=== PATIENT | male | born 1945 | race Caucasian/White ===

== ENCOUNTER 2024-01-11 10:11 | Observation (INO) | payer MEDICARE, OTHER, SELFPAY ==
[2024-01-11 10:12] VITALS: BP 164/64; PULSE 58; RESP 20; TEMP 36.5; O2SAT 97; BMI 40.6
--- NOTE | 2024-01-11 10:41 | XR_ITS ---
PROCEDURE INFORMATION: Exam: XR Right Knee Exam date and time: 01/11/2024 10:45 AM Age: 78 years old Clinical indication: Injury or trauma; Fall; Blunt trauma; Knee; Right TECHNIQUE: Imaging protocol: Radiologic exam of the right knee. Views: 3 views. COMPARISON: CR XR KNEE RT 3V 01/11/2024 10:45 AM FINDINGS: Bones/joints: Tricompartmental degenerative changes, most severe in the medial compartment. Soft tissues: Normal. IMPRESSION: Tricompartmental degenerative changes, most severe in the medial compartment.
--- NOTE | 2024-01-11 10:41 | XR_ITS ---
PROCEDURE INFORMATION: Exam: XR Right Ankle Exam date and time: 01/11/2024 10:45 AM Age: 78 years old Clinical indication: Injury or trauma; Fall; Blunt trauma; Ankle; Right TECHNIQUE: Imaging protocol: Radiologic exam of the right ankle. Views: 3 or more views. COMPARISON: CR XR KNEE RT 3V 01/11/2024 10:45 AM FINDINGS: Bones/joints: Oblique nondisplaced fracture of the lateral malleolus. Soft tissues: Normal. IMPRESSION: Oblique nondisplaced fracture of the lateral malleolus.
--- NOTE | 2024-01-11 11:20 | XR_ITS ---
PROCEDURE INFORMATION: Exam: XR Right Foot Exam date and time: 01/11/2024 11:28 AM Age: 78 years old Clinical indication: Injury or trauma; Fall; Blunt trauma; Foot; Right; Additional info: Foot injury TECHNIQUE: Imaging protocol: Radiologic exam of the right foot. Views: 3 or more views. COMPARISON: CR XR ANKLE RT MIN 3V 01/11/2024 10:45 AM FINDINGS: Bones/joints: Oblique nondisplaced fracture of the lateral malleolus. Soft tissues: Normal. IMPRESSION: Oblique nondisplaced fracture of the lateral malleolus.
--- NOTE | 2024-01-11 11:28 | ED_ITS ---
Discharge Plan Disposition Chief Complaint: Fall Referrals Follow up/Referrals: Provider,Referral, [Primary Care Provider] - See instructions Clinical Impressions Clinical Impression: Fracture of right fibula, Osteoarthritis of right knee, Fall, Debilitated patient, Inability to walk Print Language Print Language: Danish Discharge ED Provider: Elisa Valadez General Adult HPI General Chief complaint: Fall Stated complaint: AO- Fall, Pain and swelling R knee and ankle Time Seen by Provider: 01/11/24 11:28 Mode of Arrival: Wheelchair Source of Information: Patient and Spouse Limitations: No Limitations Description of Symptoms (Recalled from ER Triage Doc. by RN): pt got tripped up at home yesterday and twisted his right knee and ankle up behind him. pt denies loc, head, neck, or back pain. pt has ble edema +2 that is a chronic ongoing issue History of Present Illness HPI narrative: Patient is a 78-year-old with history of MS who with chronic debility who can barely walk at baseline typically using a walker or cane presents after a fall. Had his left knee replaced many years ago's had chronic right knee pain actually has a follow-up appointment with an orthopedic surgeon on Friday but fell today twisting his right knee and ankle having significant right ankle pain and inability to walk. No injuries elsewhere Related Data Allergies Allergy/AdvReac Type Severity Reaction Status Date / Time No Known Allergies Allergy Unverified 03/11/17 14:32 [facility] Disclaimer: The information contained in this section may have been updated after the patient was seen, as this information can be updated by other users. Social History Smoking Status: Never smoker alcohol intake: never current occupational status: other Travel in the last 8 weeks: None ROS Obtained: Yes All systems reviewed & no additional complaints except as documented Physical Exam General General appearance: alert and in no apparent distress Respiratory Respiratory exam: Present normal lung sounds bilaterally Cardiovascular Cardiovascular exam: Present regular rate Extremities Exam Extremities exam: Present other (Significant pain and swelling over the distal tib-fib location and ankle particular on the right side there is some ecchymosis and soft tissue discoloration and tenderness to the dorsal aspect of the midfoot neurovascular intact) Neurological Exam Neurological exam: Present alert and oriented X3 Medical Decision Making Medical Records Screening: Per USPSTF and CDC recommendations, given the prevalence of disease in our region, it is our hospital?s policy to screen for HIV and viral Hepatitis for all patients aged 18 and over and those with ongoing risk factors. Vick Inquiry Pt receiving controlled substance: No Vital Signs: 01/11/24 10:12 Temperature 97.7 F Temperature Source Oral Pulse Rate [Right Radial] 58 L Respiratory Rate 20 Blood Pressure [Right Arm] 164/64 H Blood Pressure Mean [Right Arm] 97 02 Sat by Pulse Oximetry 97 Oxygen Delivery Method Room Air Orders (Tests/Meds): ORDERS Category Date Time Status Ankle XR -Right minimum 3 Views [XR ankle RT min 3V] Exams 01/11/24 10:41 Completed Stat Foot XR right minimum 3 views [XR foot RT min 3V] Stat Exams 01/11/24 11:20 Completed XR knee RT 3V Stat Exams 01/11/24 10:41 Completed Medical Decision Narrative: Patient with above history and physical will get x-rays to rule out fracture dislocation etc. X-rays were performed which I personally interpreted which show severe degenerative changes in the knee but no acute fractures or dislocations however in the ankle there is a oblique fracture of the distal aspect of the right fibula and a nonweightbearing component no fractures on the tibia itself or in the medial malleolus. This is typically nonweightbearing bone but given patient's chronic debilitation this is only worsened things I doubt he will be able to bear weight and care for himself at home and his family agrees with this his and children at the bedside. Will attempt to place a walking boot on him and have him bear weight but he likely will need to be admitted for PT OT and possibly rehab placement. Reassessment patient unable to walk without multiple people around him. He certainly will be able to be cared for at home by himself with his . Therefore he will need to come in for PT OT evaluation and likely rehab placement. Family is aware that a team of professionals including those therapist as well as case management will be involved tomorrow. I spoke with Chas with hospital medicine who agreed to admit this patient for further management. Critical Care Critical Care Time Critical Care Time: No
--- NOTE | 2024-01-11 12:45 | PC.NURSE ---
CAREER DEVELOPMENT COORDINATOR/TEACHER NOTIFIED OF ADMISSION
--- NOTE | 2024-01-11 12:57 | PC.NURSE ---
house advised that this admission will be going to [address] on [address] floor.
[2024-01-11 13:00] VITALS: BP 137/58; PULSE 61; RESP 20; TEMP 36.8; O2SAT 96
--- NOTE | 2024-01-11 13:00 | PC.NURSE ---
called report to jeannette landa
[2024-01-11 13:22] VITALS: BMI 36.8
[2024-01-11 13:31] VITALS: BP 135/67; PULSE 60; RESP 19; TEMP 36.5; O2SAT 97
--- NOTE | 2024-01-11 13:58 | EXP.HP ---
History of Present Illness *History of present illness: Med Chung is a 78-year-old male with a medical history significant for multiple sclerosis, type 2 diabetes who presents after falling at home and found to have fractured his right malleolus. Chronic debility who can barely walk at baseline typically using a walker or cane presents after a fall. Had his left knee replaced many years ago's had chronic right knee pain actually has a follow-up appointment with an orthopedic surgeon on Friday but fell today twisting his right knee and ankle having significant right ankle pain and inability to walk. No injuries elsewhere. Ankle x-ray significant for oblique nondisplaced fracture of the lateral malleolus. No fractures in the foot, knee. Efforts were made to ambulate patient in the ED with his walker, the patient had significant difficulty requiring multiple people assisting him. He lives with at home who would be unable to assist with his acute on chronic debility. Case was discussed with ED provider and decision was made to admit patient for acute on chronic debility with right malleolus fracture. [facility] Disclaimer: The information contained in this section may have been updated after the patient was seen, as this information can be updated by other users. Medical History (Updated 01/11/24 @ 14:11 by Tiarra Harris RN) Mass Enlarged prostate Macular degeneration Prostate CA GERD (gastroesophageal reflux disease) Diabetes Hypertension Hyperlipidemia Multiple sclerosis Chronic pain FH: total knee replacement Falls COPD (chronic obstructive pulmonary disease) Surgical History (Updated 01/11/24 @ 14:10 by Tiarra Harris RN) History of prostate surgery History of appendectomy Family History (Updated 01/11/24 @ 14:09 by Tiarra Harris RN) Other Family history of COPD (chronic obstructive pulmonary disease) Family history of diabetes mellitus type II Family history of hyperlipidemia Family history of hypertension Prostate cancer Social History (Updated 01/11/24 @ 14:11 by Tiarra Harris RN) Smoking Status: Never smoker alcohol intake: never current occupational status: other Travel in the last 8 weeks: None Other Medical History Have you received the Flu Vaccine for this season: Yes Have you received the Pneumonia Vaccine: Yes Meds Home Medications and Allergies Home Medications ?Medication ?Instructions ?Recorded ?Confirmed ?Type alfuzosin 10 mg tablet,extended 10 mg PO DAILY 01/11/24 01/11/24 History release 24 hr aspirin 81 mg tablet 81 mg PO DAILY 01/11/24 01/11/24 History atorvastatin 20 mg tablet 20 mg PO DAILY 01/11/24 01/11/24 History bisoprolol fumarate 5 mg tablet 5 mg PO DAILY 01/11/24 01/11/24 History cholecalciferol (vitamin D3) 50 2,000 unit PO DAILY 01/11/24 01/11/24 History mcg (2,000 unit) capsule (Vitamin D3) famotidine 20 mg tablet 20 mg PO DAILY 01/11/24 01/11/24 History famotidine 20 mg tablet 20 mg PO DAILY 01/11/24 01/11/24 History metformin 500 mg 24 hr 500 mg PO DAILY 01/11/24 01/11/24 History tablet,extended release (gastric retention) silodosin 8 mg capsule 8 mg PO DAILY 01/11/24 01/11/24 History solifenacin 10 mg tablet 10 mg PO DAILY 01/11/24 01/11/24 History vitamin B12 0.5 mg-folic acid 1 mg 1 tab PO DAILY 01/11/24 01/11/24 History tablet New Prescriptions to Start Prescriptions: Allergies Allergy/AdvReac Type Severity Reaction Status Date / Time No Known Allergies Allergy Unverified 03/11/17 14:32 Exam Data for Last 24 hours Vital signs and Labs for Last 24 Hours: Temp Pulse Resp BP Pulse Ox O2 Del Method 97.7 F 60 19 135/67 97 Room Air 01/11/24 13:31 01/11/24 13:31 01/11/24 13:31 01/11/24 13:31 01/11/24 13:31 01/11/24 13:31 I & O for Last 24 hours: Intake & Output 01/08/24 01/09/24 01/10/24 01/11/24 23:59 23:59 23:59 23:59 Weight 113.115 kg Constitutional Constitutional: no acute distress *Routine HEENT Exam Head: Present normocephalic Eye: Present EOMI and PERRL ENT: Present mucous membranes moist *Routine Neck Exam Neck: Present supple; Absent lymphadenopathy *Routine Respiratory Exam Respiratory: Present CTA bilaterally *Routine Cardiovascular Exam Cardiovascular: Present RRR *Routine Abdominal Exam Abdominal: Present soft and normoactive bowel sounds; Absent tenderness *Routine Rectal Exam Rectal:: deferred *Routine Genitalia Exam Genitalia:: deferred *Routine Extremities Exam Extremities: Absent cyanosis, clubbing or edema Comments: Bruising around right malleolus with tenderness. Bilateral lower extremity pitting edema 1+. *Routine Skin Exam Skin: Present warm; Absent rash *Routine Neurological Exam Neurological: Present alert and oriented X3 Assessment and Plan *Assessment and plan (1) Inability to walk: Status: Acute Category: Medical Code(s): R26.2 - Difficulty in walking, not elsewhere classified (2) Debilitated patient: Status: Acute Category: Medical Code(s): R53.81 - Other malaise (3) Fall: Status: Acute Category: Medical Code(s): W19.XXXA - Unspecified fall, initial encounter (4) Osteoarthritis of right knee: Status: Acute Category: Medical Code(s): M17.11 - Unilateral primary osteoarthritis, right knee (5) Fracture of right fibula: Status: Acute Category: Medical Code(s): S82.401A - Unspecified fracture of shaft of right fibula, initial encounter for closed fracture Plan Med Chung is a 78-year-old male with a medical history significant for multiple sclerosis, type 2 diabetes who presents after falling at home and found to have fractured his right malleolus. Chronic debility who can barely walk at baseline typically using a walker or cane presents after a fall. Had his left knee replaced many years ago's had chronic right knee pain actually has a follow-up appointment with an orthopedic surgeon on Friday but fell today twisting his right knee and ankle having significant right ankle pain and inability to walk. No injuries elsewhere. Ankle x-ray significant for oblique nondisplaced fracture of the lateral malleolus. No fractures in the foot, knee. Efforts were made to ambulate patient in the ED with his walker, the patient had significant difficulty requiring multiple people assisting him. He lives with at home who would be unable to assist with his acute on chronic debility. Case was discussed with ED provider and decision was made to admit patient for acute on chronic debility with right malleolus fracture. #Right nondisplaced lateral malleolus fracture #Acute on chronic debility ? Patient at baseline requires walker for significant bilateral knee arthritis s/p left total knee replacement. ? would be unable to take care of him with his knee debility at home. He is unable to use his walker without multiple people assisting. ? PT/OT consulted, pending recommendations. Patient prefers home health, prefers SNF. ? Pain control with Tylenol, Reagan as needed. ? No signs of compartment syndrome. #Bilateral lower extremity pitting edema ? No shortness of breath, orthopnea, PND, cardiac history. ? Likely secondary to venous insufficiency. ? Will defer to PCP for further evaluation management. #Multiple sclerosis #Suspected neurogenic bladder ? Follows with neurology and insensate. Receives maintenance IV infusion therapy every 6 months. ? Stable, not in exacerbation. ? Patient states he continues to have bedwetting and urinary leakage spite of being treated with solifenacin. ? Will trial oxybutynin. #Type 2 diabetes ? Follow-up morning A1c. ? LDSSI, ACHS glucose checks. ? Continue home metformin. Full code Lovenox
[2024-01-11 14:05] LABS: Basophils % 0.5 % (0.1-2.0); Eosinophils # 0.3 K/mm3 (0.0-0.4); Eosinophils % 3.7 % (0.1-12.0); Hematocrit 35.7 % (42.0-52.0); Hemoglobin 12.2 g/dL (14.1-18.0); Lymphocytes # 2.5 K/mm3 (0.7-4.5); Lymphocytes % 35.4 % (10-50); Mean Corpuscular HGB Conc 34.2 g/dL (31.8-35.4); Mean Corpuscular Hemoglobin 29.9 pg (27.0-31.2); Mean Corpuscular Volume 87.3 fl (80-94); Mean Platelet Volume 8.6 fl (7.4-10.4); Monocytes # 0.5 K/mm3 (0.1-1.0); Monocytes % 6.5 % (1.7-9.3); Neutrophils # 3.8 K/mm3 (1.8-7.8); Neutrophils % 53.9 % (37.0-80.0); Platelet Count 179 K/mm3 (142-424); Red Blood Count 4.09 M/mm3 (4.60-6.20); Red Cell Distribution Width 15.5 % (11.5-17.5); White Blood Count 7.1 K/mm3 (4.8-10.8)
[2024-01-11 14:13] LABS: Albumin Level 3.3 g/dl (3.5-5.0); Chloride 104 mmol/L (98-107)
[2024-01-11 14:14] LABS: Potassium 4.1 mmoL/L (3.5-5.1); Sodium 133 mmol/L (136-145)
[2024-01-11 14:16] LABS: Blood Urea Nitrogen 17 mg/dl (9-20); Creatinine Clearance Estimated 99 mL/min (50-200); Estimated Glomerular Filt Rate 94 ml/min (>60); GFR (African American) 113 ML/MIN (>60)
[2024-01-11 14:17] LABS: Alanine Aminotransferase 34 U/L (12-78); Albumin/Globulin Ratio 1.3 (1.1-1.8); Alkaline Phosphatase 102 U/L (38-126); Anion Gap 9.1 mEq/L (5-15); Aspartate Amino Transferase 33 U/L (17-59); Calcium 8.9 mg/dl (8.4-10.2); Carbon Dioxide 24 mmol/L (22.0-30.0); Globulin 2.6 g/dL (1.3-3.2); Glucose 115 mg/dl (74-100); Total Protein,Serum 5.9 g/dl (6.3-8.2)
[2024-01-11 16:00] VITALS: BP 172/73; PULSE 65; RESP 18; TEMP 36.7; O2SAT 97
[2024-01-11 16:30] LABS: POC Glucose,Bedside 125 (70-110)
[2024-01-11] MEDS: HYDROCODONE/APAP 5/325 MG TABLET 1 TAB PO (17:15)
[2024-01-11 20:00] VITALS: BP 166/75; PULSE 77; RESP 20; TEMP 36.8; O2SAT 96
[2024-01-11 20:17] LABS: POC Glucose,Bedside 179 (70-110)
[2024-01-11] MEDS: OXYBUTYNIN 5MG TAB 5 MG PO (21:00)
[2024-01-11] MEDS: TAMSULOSIN 0.4MG CAPSULE 0.4 MG PO (21:00)
[2024-01-12] MEDS: HYDROCODONE/APAP 5/325 MG TABLET 1 TAB PO ×2 (03:21→17:30)
[2024-01-12 04:00] VITALS: BP 140/63; PULSE 67; RESP 16; TEMP 36.7; O2SAT 95; BMI 37.2
--- NOTE | 2024-01-12 05:09 | PC.NURSE ---
The patient has had a good shift. Has only complained of pain once and was medicated for that. Did get a bath last night and a new purewick was placed. no other complaints
[2024-01-12 05:31] LABS: POC Glucose,Bedside 144 (70-110)
[2024-01-12 08:00] VITALS: BP 122/56; PULSE 86; RESP 18; TEMP 37; O2SAT 93
[2024-01-12] MEDS: OXYBUTYNIN 5MG TAB 5 MG PO ×2 (08:10→13:29)
[2024-01-12] MEDS: ASPIRIN EC 81MG TABLET 81 MG PO (08:10)
[2024-01-12] MEDS: METFORMIN 500MG TABLET 500 MG PO (08:11)
[2024-01-12] MEDS: ENOXAPARIN 40MG/0.4ML SYRINGE 40 MG SQ (08:11)
[2024-01-12] MEDS: FAMOTIDINE 20MG TABLET 20 MG PO (08:11)
--- NOTE | 2024-01-12 08:30 | HMH.PTEV ---
Physical Therapy Evaluation Rehab PT IP Evaluation Start: 01/11/24 16:02 Freq: ONCE Status: Active Protocol: Document 01/12/24 08:08 BRADLEY (Rec: 01/12/24 08:30 BRADLEY [id number]) Subjective/History History History Per H&P: Med Chung is a 78-year-old male with a medical history significant for multiple sclerosis, type 2 diabetes who presents after falling at home and found to have fractured his right malleolus. Chronic debility who can barely walk at baseline typically using a walker or cane presents after a fall. Had his left knee replaced many years ago's had chronic right knee pain actually has a follow-up appointment with an orthopedic surgeon on Friday but fell today twisting his right knee and ankle having significant right ankle pain and inability to walk. No injuries elsewhere. Ankle x-ray significant for oblique nondisplaced fracture of the lateral malleolus. No fractures in the foot, knee. Efforts were made to ambulate patient in the ED with his walker, the patient had significant difficulty requiring multiple people assisting him. He lives with at home who would be unable to assist with his acute on chronic debility. Case was discussed with ED provider and decision was made to admit patient for acute on chronic debility with right malleolus fracture. Subjective Subjective PLOF: Pt reports he lives home with his in a single- story home with a ramped entrance (and 1 JENNIFER). Pt used a RW and for short household distances and a w/c for community mobility. Pt was not driving prior to admission. Pt reports he broke his ankle in a fall. Verbal orders from on-staff physician for WBAT in boot. New diagnosis of cancer in past 12 No months? Rehab PT IP Eval Objective Appearance Patient Behavior Appropriate,Cooperative Patient Orientation Person,Situation Difficulty following instructions none Speech Pattern Clear Ambulation Patient Able to Ambulate No Balance Ability to Arise Able, uses arms to help Sitting Balance Steady, safe Standing Balance Unsteady Transfers Bed Transfer Ability Moderate x 1 (50% assist) Chair Transfer Ability Moderate x 2 (50% assist) Sit to Stand Bed Transfer Ability Moderate x 2 (50% assist) Sit to Stand Chair Transfer Ability Moderate x 2 (50% assist) Rehab PT IP prob,goals,plan Problems Date of Evaluation: 01/12/24 PT IP Problems Bed Mobility,Transfers,Gait, Balance,Self care,Safety Rehab Potential Rehab Potential Good Equipment Needs Assistive Devices Rolling / Wheeled Walker, Wheelchair Plan PT Intervention Plan Bed Mobility,Transfers,Gait, Balance,Safety,Therapeutic Exercise Other Intervention Plan 1-2 times PT Plan Frequency Daily Duration LOS Discharge Goals Bed Transfer Ability Minimal x 1 (25% assist) Sit to Stand Chair Transfer Ability Moderate x 1 (50% assist) Discharge Plan PT Discharge Plan Initial physical therapy evaluation performed. Patient presents below baseline at this time in functional mobility, transfers, and strength. Pt not safe to return home at this time d/t current level of functional mobility. Pt's is unable to provide the needed physical assistance for pt. Pt had a bout of OH when performing toileting tasks on BS. PT alerted pt's nurse of pt's symptoms of lightheadedness and blurred vision and nurse came in to assess BP and assist with transfer back to bed. Once supine, pt's BP returned to baseline and pt's symptoms decreased. Pt left comfortably in bed with needs in reach. PT recommending inpatient physical rehabilitation placement upon d/c from [facility]. Pt would benefit from skilled PT while at [facility] to prevent further functional decline and maximize safety with mobility . Eval Complexity Eval Charge Codes 38938 - Moderate Complexity PHYSICIAN CERTIFICATION: I certify the specified therapy services for Med Chung are required, authorized, and reviewed every 30 days.
--- NOTE | 2024-01-12 09:04 | HMH.PHAINT1 ---
Pharmacy Intervention Comments: Home medications verified using list from pharmacy and interview with patient.
--- NOTE | 2024-01-12 09:42 | HMH.OTEV ---
OT Inpatient Evaluation Rehab OT IP Evaluation Start: 01/11/24 16:02 Freq: ONCE Status: Active Protocol: Document 01/12/24 09:33 PALMERMAKENNA (Rec: 01/12/24 09:42 SHELLY [id number]) Rehab OT IP Assessment Subjective History Med Chung is a 78-year- old male with a medical history significant for multiple sclerosis, type 2 diabetes who presents after falling at home and found to have fractured his right malleolus. Chronic debility who can barely walk at baseline typically using a walker or cane presents after a fall. Had his left knee replaced many years ago's had chronic right knee pain actually has a follow-up appointment with an orthopedic surgeon on Friday but fell today twisting his right knee and ankle having significant right ankle pain and inability to walk. No injuries elsewhere. Ankle x-ray significant for oblique nondisplaced fracture of the lateral malleolus. No fractures in the foot, knee. Efforts were made to ambulate patient in the ED with his walker, the patient had significant difficulty requiring multiple people assisting him. He lives with at home who would be unable to assist with his acute on chronic debility. Case was discussed with ED provider and decision was made to admit patient for acute on chronic debility with right malleolus fracture. Patient lives in 1 story home with no JENNIFER with . assist with patient's all ADLs , bed mobility and fx'l mobility. Patient uses a RW to ambulate within the home. assist with outside transportation, cooking and household tasks. Subjective I can try to sit up. Instruct Patient to complete bed mobility from supine->sit @ EOB->stand with usage of RW requiring Mod A. Patient stood <30 secs during initial evaluation. Assisted Patient supine in upright in bed with needs met at end of session. Objective Patient Orientation Person,Name,Age,Birthday,Year Right Upper Extremity Gross ROM WFL Left Upper Extremity Gross ROM WFL Bed Mobility bed mobility - supine/sit Assist Level Moderate x 1 (50% assist) Transfer Training Sit/Stand Transfer Assist Level Moderate x 1 (50% assist) Rehab OT IP prob,goals,plan Problems Date of Evaluation: 01/12/24 OT IP Problems Bed Mobility,Transfers,Balance ,Self care,Safety Rehab Potential Rehab Potential Good Equipment Needs Assistive Devices Rolling / Wheeled Walker Plan OT intervention Plan Bed Mobility,Transfers,Balance ,Self care,Safety,Therapeutic Exercise OT Plan Frequency Daily Duration LOS Discharge Goals Bed Mobility Ability Assistance x1 Sit to Stand Chair Transfer Ability Minimal x 2 (25% assist) Chair Transfer Ability Minimal x 2 (25% assist) Chair Transfer Technique Sit to/from Ambulatory Chair Transfer Assistive Devices Rolling Walker Discharge Plan OT Discharge Plan If is able to continue caring for patient at this time, recommend patient to return home with services. However if is unable to continue to provide care, recommend rehab services prior to return home. Patient to continue skilled OT IP services while here at [facility]. Eval Complexity Eval Charge Codes 10042 - Low Complexity PHYSICIAN CERTIFICATION: I certify the specified therapy services for Med Chung are required, authorized, and reviewed every 30 days.
[2024-01-12 11:41] LABS: Hemoglobin A1C 6.5 % (4.0-6.0)
[2024-01-12 11:56] LABS: POC Glucose,Bedside 168 (70-110)
[2024-01-12 13:22] VITALS: BP 114/43; BP 134/68; BP 151/63; PULSE 101; PULSE 76; PULSE 83
--- NOTE | 2024-01-12 15:37 | CARE MANAGER ---
Patient has chronic multiple sclerosis and new fibula fracture which requires positioning of the body in ways not feasible with an ordinary bed.
[2024-01-12 16:00] VITALS: BP 163/71; PULSE 83; RESP 18; TEMP 36.9; O2SAT 95
[2024-01-12 16:42] LABS: POC Glucose,Bedside 140 (70-110)
[2024-01-12 16:47] LABS: Microscopic, Urine URINE MICROSCOPIC (MICROSCOPIC)
--- NOTE | 2024-01-12 16:47 | P.DS_ITS ---
General Admission date:: 01/11/24 HPI HPI HPI: Med Chung is a 78-year-old male with a medical history significant for multiple sclerosis, type 2 diabetes who presents after falling at home and found to have fractured his right malleolus. Chronic debility who can barely walk at baseline typically using a walker or cane presents after a fall. Had his left knee replaced many years ago's had chronic right knee pain actually has a follow-up appointment with an orthopedic surgeon on Friday but fell today twisting his right knee and ankle having significant right ankle pain and inability to walk. No injuries elsewhere. Ankle x-ray significant for oblique nondisplaced fracture of the lateral malleolus. No fractures in the foot, knee. Efforts were made to ambulate patient in the ED with his walker, the patient had significant difficulty requiring multiple people assisting him. He lives with at home who would be unable to assist with his acute on chronic debility. Case was discussed with ED provider and decision was made to admit patient for acute on chronic debility with right malleolus fracture. Hospital Course Hospital Course Hospital Course: Med Chung is a 78-year-old male with a medical history significant for multiple sclerosis, type 2 diabetes who presents after falling at home and found to have fractured his right malleolus. Chronic debility who can barely walk at baseline typically using a walker or cane presents after a fall. Had his left knee replaced many years ago's had chronic right knee pain actually has a follow-up appointment with an orthopedic surgeon on Friday but fell today twisting his right knee and ankle having significant right ankle pain and inability to walk. No injuries elsewhere. Ankle x-ray significant for oblique nondisplaced fracture of the lateral malleolus. No fractures in the foot, knee. Efforts were made to ambulate patient in the ED with his walker, the patient had significant difficulty requiring multiple people assisting him. He lives with at home who would be unable to assist with his acute on chronic debility. Case was discussed with ED provider and decision was made to admit patient for acute on chronic debility with right malleolus fracture. #Right nondisplaced lateral malleolus fracture #Acute on chronic debility #Recurrent falls ? Patient at baseline requires walker for significant bilateral knee arthritis s/p left total knee replacement. ? PT/OT consulted, recommended SNF placement. - Unfortunately, SNF is not a possibility with patient's insurance. Private pay is also not an option per patient. - Case management reached out to [facility] for [facility] placement [facility] as patient is a , which is a possibility but we would not have a response for at least a week. - In the meantime, we will set up home health with PT. ? Medically stable to be discharged home. Weight bearing as tolerated. #Orthostatic hypotension, dizziness - Orthostatic vitals positive (20mmHG differential between sitting and standing). - With a history of falls, dizziness we will discontinue bisoprolol and start low dose midrodine 2.5mg TID. - Will follow-up with PCP within 1 week. #UTI - UA and symptoms suggestive of UTI. Afebrile, no leukotosis. - Discharge with 5 days of levofloxacin. #Bilateral lower extremity pitting edema ? No shortness of breath, orthopnea, PND, cardiac history. ? Likely secondary to venous insufficiency. ? Will defer to PCP for further evaluation management. #Multiple sclerosis #Suspected neurogenic bladder ? Follows with neurology in [place]. Receives maintenance IV infusion therapy every 6 months. ? Stable, not in exacerbation. #Type 2 diabetes ? A1c 6.5% on admission. ? Continue home metformin. Exam Data for Last 24 hours Vital signs and Labs for Last 24 Hours: Temp Pulse Resp BP Pulse Ox O2 Del Method 98.6 F 76 18 151/63 H 93 L Room Air 01/12/24 08:00 01/12/24 13:22 01/12/24 08:00 01/12/24 13:22 01/12/24 08:00 01/12/24 14:38 Laboratory Results - last 24 hr 01/11/24 19:58: POC Glucose 179 H 01/12/24 05:22: POC Glucose 144 H, Hemoglobin A1c 6.5 H 01/12/24 11:33: POC Glucose 168 H 01/12/24 16:34: POC Glucose 140 H I & O for Last 24 hours: Intake & Output 01/09/24 01/10/24 01/11/24 01/12/24 23:59 23:59 23:59 23:59 Intake Total 120 / 220 915 / 915 Output Total 700 / 700 700 / 700 Balance -580 / -480 215 / 215 Weight 113.115 kg 114.124 kg Constitutional Constitutional: no acute distress and obese *Routine HEENT Exam Head: Present normocephalic Eye: Present EOMI and PERRL ENT: Present mucous membranes moist *Routine Neck Exam Neck: Present supple; Absent lymphadenopathy *Routine Respiratory Exam Respiratory: Present CTA bilaterally *Routine Cardiovascular Exam Cardiovascular: Present RRR *Routine Abdominal Exam Abdominal: Present soft and normoactive bowel sounds; Absent tenderness *Routine Extremities Exam Extremities: Present edema; Absent cyanosis or clubbing Comments: Bilateral lower extremity edema 1+. Bruising above right mallelous. *Routine Skin Exam Skin: Present warm; Absent rash *Routine Neurological Exam Neurological: Present alert and oriented X3 Results Data Completed and Pending Labs on day of discharge: Labs from last 24 hours 01/12/24 01/12/24 01/12/24 16:34 11:33 05:22 POC Glucose 140 H 168 H 144 H Hemoglobin A1c 6.5 H 01/11/24 19:58 POC Glucose 179 H Hemoglobin A1c DS: Diagnosis Discharge Diagnosis (1) Inability to walk: Status: Acute Code(s): R26.2 - Difficulty in walking, not elsewhere classified (2) Debilitated patient: Status: Acute Code(s): R53.81 - Other malaise (3) Fall: Status: Acute Code(s): W19.XXXA - Unspecified fall, initial encounter (4) Osteoarthritis of right knee: Status: Acute Code(s): M17.11 - Unilateral primary osteoarthritis, right knee (5) Fracture of right fibula: Status: Acute Code(s): S82.401A - Unspecified fracture of shaft of right fibula, initial encounter for closed fracture Meds Home Medications and Allergies Home Medications ?Medication ?Instructions ?Recorded ?Confirmed ?Type aspirin 81 mg tablet 81 mg PO DAILY 01/11/24 01/11/24 History atorvastatin 20 mg tablet 20 mg PO DAILY 01/11/24 01/11/24 History cholecalciferol (vitamin D3) 50 2,000 unit PO BID 01/11/24 01/12/24 History mcg (2,000 unit) capsule (Vitamin D3) famotidine 20 mg tablet 20 mg PO BID 01/11/24 01/12/24 History metformin 500 mg 24 hr 500 mg PO DAILY 01/11/24 01/11/24 History tablet,extended release (gastric retention) silodosin 8 mg capsule 8 mg PO DAILY 01/11/24 01/11/24 History vitamin B12 0.5 mg-folic acid 1 mg 1 tab PO DAILY 01/11/24 01/11/24 History tablet gabapentin 100 mg capsule 200 mg PO BID 01/12/24 01/12/24 History leuprolide acetate (6 month) 45 mg 45 mg SQ .EVERY 6 MONTHS 01/12/24 01/12/24 History (6 month) subcutaneous syringe ([facility]) methenamine hippurate 1 gram tablet 1 g PO BID 01/12/24 01/12/24 History midodrine 2.5 mg tablet 2.5 mg PO BID #60 tabs 01/12/24 Rx ocrelizumab 30 mg/mL intravenous 600 mg IV .EVERY 6 MONTHS 01/12/24 01/12/24 History solution (Ocrevus) psyllium 500 mg capsule 0.52 g PO DAILY 01/12/24 01/12/24 History vitamin E 400 unit tablet 400 unit PO DAILY 01/12/24 01/12/24 History vitamins A,C,C-uswl-joncxt 2,148 1 tab PO BID 01/12/24 01/12/24 History mcg-113 mg-45 mg-17.4 mg tablet (PreserVision AREDS) levofloxacin 500 mg tablet 500 mg PO DAILY 5 days #5 tabs 01/16/24 Rx New Prescriptions to Start Prescriptions: levofloxacin Med Esquivel John Allergies Allergy/AdvReac Type Severity Reaction Status Date / Time No Known Allergies Allergy Unverified 03/11/17 14:32 Discharge Plan Disposition Patient Disposition: Home Health Service Discharge Order Discharge Orders: Discharge Order (Routine); Ordered 01/12/24 Ordered By: Chas Sigala Follow up Plan Follow up with: Leola Saab [Referring] - 01/19/24 10:15 am Prescriptions/Medication Reconciliation: New midodrine 2.5 mg tablet 2.5 mg PO BID Qty: 60 0RF Rx Instructions: do not give last dose of day after 6PM or within 4 hrs of bedtime levofloxacin 500 mg tablet 500 mg PO DAILY 5 Days Qty: 5 0RF Continued silodosin 8 mg capsule 8 mg PO DAILY atorvastatin 20 mg Tablet 20 mg PO DAILY famotidine 20 mg tablet 20 mg PO BID Patient Comments: TAKE 1 TABLET BY MOUTH TWICE DAILY aspirin 81 mg Tablet 81 mg PO DAILY metformin 500 mg Tablet,Er Jenna.Retention 24 Hr 500 mg PO DAILY cholecalciferol (vitamin D3) [Vitamin D3] 50 mcg (2,000 unit) Capsule 2,000 unit PO BID vitamin R44-xetef acid 0.5-1 mg Tablet 1 tab PO DAILY methenamine hippurate 1 gram tablet 1 g PO BID Patient Comments: TAKE 1 TABLET BY MOUTH TWICE DAILY gabapentin 100 mg capsule 200 mg PO BID Patient Comments: TAKE 2 CAPSULES BY MOUTH TWICE DAILY psyllium 500 mg Capsule 0.52 g PO DAILY vitamin E 400 unit Tablet 400 unit PO DAILY Eligard (6 month) 45 mg Syringe 45 mg SQ .EVERY 6 MONTHS PreserVision AREDS 2,148 mcg-113 mg-45 mg-17.4mg Tablet 1 tab PO BID Rx Instructions: administer with AM and PM meals Ocrevus 30 mg/mL Solution 600 mg IV .EVERY 6 MONTHS Discontinued bisoprolol fumarate 5 mg Tablet 5 mg PO DAILY Problem Reconciliation Problems Reviewed?: Yes Patient Discharge Instructions Patient Instructions: DI for Malleolar Fracture Print Language: French Providers Primary Care Provider: Provider,Referral Admit Provider: Chas Sigala Attending Provider: Chas Sigala
--- NOTE | 2024-01-12 16:49 | CARE MANAGER ---
Spoke with patient and regarding discharge planning. I explained that patient was admitted for observation and would not qualify for acute inpatient at this time. I have sent information to [place] for possible acute bed, but due to him being a new patient, he does not qualify for SNF benefits. Patient is now planned for discharge home with home health services and a hospital bed. Patient Choice signed and placed on chart for [place]. Hospital bed is being delivered prior to EMS transport home this evening.
[2024-01-12 18:17] LABS: Appearance,Urine CLOUDY (Clear); Bilirubin,Urine Negative (Negative); Blood, Urine Negative (Negative); Color,Urine YELLOW (Yellow); Glucose,Urine (UA) Negative (Negative); Ketones,Urine Negative (Negative); Leukocyte Esterase,Urine 3+ (Negative); Nitrate,Urine Negative (Negative); Protein,Urine TRACE (Negative); Specific Gravity, Urine 1.025 (1.005-1.030)
[2024-01-12 18:43] LABS: Bacteria,Urine 4+ /lpf; Calcium Oxalate Crystals,Urine 2+ /lpf; WBC,Urine TNTC #/hpf (0-3)
--- NOTE | 2024-01-13 13:45 | CARE MANAGER ---
Called and spoke with patient's regarding recent discharge. She stated that patient is doing well, up to chair this afternoon. Pain is well controlled with Tylenol. No concerns voiced at time of call.
== END 2024-01-12 17:41 | disposition home health service (06) ==
LOC: ER 11:43 → 2ND 12:56
PROVIDERS: Admitting Provider Student in an Organized Health Care Education/Training Program; Emergency Provider Student in an Organized Health Care Education/Training Program; Visit Provider Student in an Organized Health Care Education/Training Program
DX: G35 Multiple sclerosis (principal); M17.11 Unilateral primary osteoarthritis, right knee; I10 Essential (primary) hypertension; S82.64XA Nondisplaced fracture of lateral malleolus of right fibula, initial encounter for closed fracture; E11.9 Type 2 diabetes mellitus without complications; W18.30XA Fall on same level, unspecified, initial encounter; Z91.81 History of falling; R29.6 Repeated falls; Y92.019 Unspecified place in single-family (private) house as the place of occurrence of the external cause; J44.9 Chronic obstructive pulmonary disease, unspecified; E78.5 Hyperlipidemia, unspecified; N39.0 Urinary tract infection, site not specified; B96.4 Proteus (mirabilis) (morganii) as the cause of diseases classified elsewhere; Z79.84 Long term (current) use of oral hypoglycemic drugs; Z79.899 Other long term (current) drug therapy; I95.1 Orthostatic hypotension; N31.2 Flaccid neuropathic bladder, not elsewhere classified
CPT/HCPCS: 36415; 73562; 73610; 73630; 80053; 81001; 82962; 83036; 85025; 87086; 87088; 87186; 97162; 97165; 97530; 99285; G0378; J1650

== ENCOUNTER 2024-02-12 08:40 | Outpatient (CLI) | payer MEDICARE, OTHER, SELFPAY ==
--- NOTE | 2024-02-12 08:45 | XR_ITS ---
FINAL REPORT CLINICAL HISTORY: right ankle fx COMPARISON: None FINDINGS: RIGHT ANKLE 3 views of the right ankle were obtained. There is an oblique mildly displaced fracture of the distal fibula. The mortise is intact. Visualized joint spaces are normally aligned. Mild soft tissue edema is noted about the ankle. There is a small plantar spur. There is a well-corticated ossific density inferior to the medial malleolus. IMPRESSION: Mildly displaced distal fibula fracture. Reviewed, Interpreted and Dictated by Humberto Zapata MD Transcribed by Hollie Reich Authenticated and [facility]
== END 2024-02-12 23:59 | disposition home or self-care (01) ==
LOC: RAD 08:42
PROVIDERS: PCP Family Medicine; Visit Provider Orthopaedic Surgery
DX: S82.64XA Nondisplaced fracture of lateral malleolus of right fibula, initial encounter for closed fracture (principal)
CPT/HCPCS: 73610

== ENCOUNTER 2024-02-17 10:59 | Outpatient (CLI) | payer MEDICARE, OTHER, SELFPAY ==
[2024-02-17 20:00] LABS: Iron 56 ug/dL (49-181)
[2024-02-17 20:09] LABS: Total Iron Binding Capacity 312 ug/dL (261-462)
== END 2024-02-17 23:59 | disposition home or self-care (01) ==
LOC: LAB.DROPOF 02-18 07:17
PROVIDERS: PCP Family Medicine; Visit Provider Family Medicine
DX: E11.9 Type 2 diabetes mellitus without complications (principal)
CPT/HCPCS: 82728; 83540; 83550

== ENCOUNTER 2024-03-11 09:16 | Outpatient (CLI) | payer MEDICARE, OTHER, SELFPAY ==
--- NOTE | 2024-03-11 09:34 | XR_ITS ---
FINAL REPORT CLINICAL HISTORY: right ankle fx COMPARISON: 02/12/2024 FINDINGS: Right ankle Three views were obtained. There is a mildly displaced oblique fracture of the distal fibula, stable. There is a chronic appearing avulsion fracture of the tip of the medial malleolus. Mild degenerative changes are present. The ankle mortise is intact. IMPRESSION: Stable distal fibular fracture. Reviewed, Interpreted and Dictated by Keith Shaver MD Transcribed by Enma Boland Authenticated and [facility]
== END 2024-03-11 23:59 | disposition home or self-care (01) ==
PROVIDERS: PCP Family Medicine; Visit Provider Orthopaedic Surgery
DX: M25.571 Pain in right ankle and joints of right foot (principal); S82.64XA Nondisplaced fracture of lateral malleolus of right fibula, initial encounter for closed fracture
CPT/HCPCS: 73610

== ENCOUNTER 2024-06-10 13:50 | Outpatient (CLI) | payer MEDICARE, OTHER, SELFPAY ==
[2024-06-10 19:52] LABS: Basophils % 0.5 % (0.1-2.0); Eosinophils # 0.9 K/mm3 (0.0-0.4); Eosinophils % 11.3 % (0.1-12.0); Hematocrit 35.5 % (42.0-52.0); Hemoglobin 11.7 g/dL (14.1-18.0); Lymphocytes # 2.3 K/mm3 (0.7-4.5); Lymphocytes % 29.6 % (10-50); Mean Corpuscular Hemoglobin 28.7 pg (27.0-31.2); Mean Corpuscular Volume 87.2 fl (80-94); Mean Platelet Volume 11.3 fl (7.4-10.4); Monocytes # 0.6 K/mm3 (0.1-1.0); Neutrophils % 51.3 % (37.0-80.0); Platelet Count 233 K/mm3 (142-424); Red Blood Count 4.07 M/mm3 (4.60-6.20); Red Cell Distribution Width 15.1 % (11.5-17.5); White Blood Count 7.9 K/mm3 (4.8-10.8)
[2024-06-10 20:04] LABS: Alanine Aminotransferase 26 U/L (12-78); Albumin Level 3.4 g/dl (3.5-5.0); Albumin/Globulin Ratio 1.5 (1.1-1.8); Alkaline Phosphatase 106 U/L (38-126); Anion Gap 10.1 mEq/L (5-15); Aspartate Amino Transferase 21 U/L (17-59); Bilirubin,Total 0.8 mg/dl (0.2-1.3); Blood Urea Nitrogen 13 mg/dl (9-20); Calcium 9.1 mg/dl (8.4-10.2); Carbon Dioxide 23 mmol/L (22.0-30.0); Chloride 100 mmol/L (98-107); Chol/HDL Ratio 3.3 (1-3.5); Cholesterol 130 mg/dl (140-200); Estimated Glomerular Filt Rate 93 ml/min (>60); GFR (African American) 113 ML/MIN (>60); Globulin 2.3 g/dL (1.3-3.2); Glucose 105 mg/dl (74-100); HDL Cholesterol 39 mg/dl (40-60); Potassium 4.1 mmoL/L (3.5-5.1); Sodium 129 mmol/L (136-145); Total Protein,Serum 5.7 g/dl (6.3-8.2); Triglycerides 192 mg/dl (30-150); VLDL Cholesterol 38 mg/dL (0-40)
[2024-06-10 20:19] LABS: Direct LDL Cholesterol 63.76 mg/dL (100-129)
[2024-06-10 21:14] LABS: Hemoglobin A1C 5.7 % (4.0-6.0)
== END 2024-06-10 23:59 | disposition home or self-care (01) ==
LOC: LAB.DROPOF 06-11 12:26
PROVIDERS: PCP Family Medicine; Visit Provider Family Medicine
DX: E11.9 Type 2 diabetes mellitus without complications (principal)
CPT/HCPCS: 80053; 80061; 83036; 85025

== ENCOUNTER 2024-06-18 10:19 | Outpatient (CLI) | payer MEDICARE, OTHER, SELFPAY ==
[2024-06-18 10:50] LABS: Anion Gap 16.2 mEq/L (5-15); Blood Urea Nitrogen 11 mg/dl (9-20); Calcium 9.2 mg/dl (8.4-10.2); Carbon Dioxide 21 mmol/L (22.0-30.0); Chloride 98 mmol/L (98-107); Estimated Glomerular Filt Rate 93 ml/min (>60); GFR (African American) 113 ML/MIN (>60); Glucose 140 mg/dl (74-100); Potassium 4.2 mmoL/L (3.5-5.1); Sodium 131 mmol/L (136-145)
--- NOTE | 2024-06-18 11:00 | US_ITS ---
FINAL REPORT CLINICAL HISTORY: parotid mass, right COMPARISON: None FINDINGS: Limited sonographic images were obtained of the soft tissues in the neck at the area of interest. The submandibular glands are unremarkable. There is a hypoechoic focus in the right parotid gland measuring up to 3.7 x 2.0 cm in greatest dimension. This appears to be predominantly cystic with a few internal echoes. The left parotid gland is unremarkable. There are a few small scattered cervical lymph nodes, which are not significantly enlarged.. IMPRESSION: Dominant complex cystic lesion in the right parotid. Recommend infused neck CT for further characterization. Reviewed, Interpreted and Dictated by Humberto Zapata MD Transcribed by Hollie Reich Authenticated and . [facility]
== END 2024-06-18 23:59 | disposition home or self-care (01) ==
LOC: RAD 10:19
PROVIDERS: PCP Family Medicine; Visit Provider Family Medicine
DX: K11.8 Other diseases of salivary glands (principal); E87.1 Hypo-osmolality and hyponatremia
CPT/HCPCS: 36415; 76536; 80048; 83930

== ENCOUNTER 2024-07-08 08:48 | Outpatient (CLI) | payer MEDICARE, SELFPAY ==
--- OUTSIDE RECORDS SUMMARY | 2024-07-08 08:52 | XMS_ITS | Encounter Summary ---
Author Name [facility] [place] [facility] [facility] [place] Address [address] [place] [address] Care Team Providers Care Pumping Supervisor Name Role Phone YULISSA HENDERSON Primary Care [...] PLAN F Mar 24, 2014 PLAN F [id number] LUIS MANUEL PERDOMO PATIENT [facility] [place] BLUECARD PREFERRED PROVIDER ORGANIZAT ION (PPO) [facility] Sep 21, 2012 [id number] [phone] LUIS MANUEL PERDOMO PATIENT [employer] ([id number]) PRESCRIPT ION WL3A Sep 21, 2012 [id number] [id number] LUIS MANUEL PERDOMO PATIENT MEDICARE (WNR) MEDICARE (M) PART B Sep 21, 2012 PART B [id number] NOEMI PERDOMO PATIENT MEDICARE (WNR) MEDICARE (M) PART A Jan 22, 2011 PART A [id number] NOEMI PERDOMO PATIENT MEDICARE PART D (WNR) MEDICARE (M) PART D Mar 24, 2014 PART D [id number] LUIS MANUEL PERDOMO PATIENT Selected Encounter This section includes the information on record at [place] for the Encounter. Date/Time Encounter Type Encounter Description Reason Provider Source May 12, 2024 10:18 AM PH1 ASSMT&MGMT NQHP 5-10 TELEPHONE [facility] ICD-10-CM G35 Multiple sclerosis LYNN ALCOCER Tomás I[facility] Encounter Template Text not used by [place] Assessments - Encounter Diagnoses This section includes the primary and secondary diagnoses documented for the Encounter. Date/Time Primary/Secondary Diagnosis Diagnosis Name Provider Source May 12, 2024 10:18 AM PRIMARY Multiple sclerosis LYNN ALCOCER [facility] Plan of Treatment: Future Appointments (+ 6 months) and Future Tests (+/- 45 days) The Plan of Treatment section includes future care activities for the patient from all [place] treatmentfacilities. This section includes future appointments and future orders which are active, pending or scheduled. Future Appointments This section includes appointments that were scheduled to occur 6 months from the date of the Encounter, up to a maximum of 20 appointments. The data comes from all [place] treatment facilities. Appointment Date/Time Appointment Type Appointme nt Facility Name August 19, 2024 01:20 PM AMBULATORY - SURGERY [facility] Active, Pending, and Scheduled Orders This section includes a listing of several types of active, pending, and scheduled orders, including clinic medications orders, diagnostic test orders, procedure orders and consult orders; where the start date of the order is 45 days before the date of the Encounter or 45 days after the date of theEncounter. The data comes from all [place] treatment facilities. Test Date/Time Test Type Test Details Facility Name Jun 08, 2024 11:04 AM Consult Order ORTHO KNEE OUTPATIENT Cons Turning Sander Operator's Choice [facility] Lab Results: +/- 30 days of the encounter This section includes the Chemistry and Hematology Lab Results on record with [place] for the patient. Radiology Reports and Pathology Reports are provided separately, in subsequent sections. Lab Results This section contains the Chemistry/Hematology Results that were resulted 30 days before or 30 daysafter the date of the Encounter. Date/Time Source Result Type Result - Unit Interpretation Reference Range Specimen Type Comment May 25, 2024 11:30 AM [facility] N IRON/TIBC PLASMA Specimen Type: PLASMA No comment entered. Ordering Provider: YULISSA HENDERSON Report Released Date/Time: Apr 22, 2024 08:13 AM Reporting Lab: [address] [address] Performing Lab: [address] [address] IRON 53 ug/dL L 65-175 TIBC 233 mg/dL L 250-425 IRON SATURATION 23 20-50 May 25, 2024 11:30 AM [facility] FERRITIN PLASMA Specimen Type: PLASMA No comment entered. Ordering Provider: YULISSA HENDERSON Report Released Date/Time: Apr 22, 2024 08:13 AM Reporting Lab: [address] [address] Performing Lab: [address] [address] FERRITIN 141.1 ng/mL 21.8-274.7 May 25, 2024 11:30 AM [facility] CBC/PLT BLOOD Specimen Type: BLOOD No comment entered. Ordering Provider: YULISSA HENDERSON Report Released Date/Time: Apr 22, 2024 08:13 AM Reporting Lab: [address] [address] Performing Lab: [address] [address] WBC 9.6 10*3/uL 5.0-10.0 RBC 4.00 10*6/uL [...] ALL of a patient's completed or amended [place] Advance and Rescinded Directives. The entries below indicate that a directive exists for the patient, but an actual copy is not included with this document. The data comes from all [place] facilities. Date Advance Directives Provider Source Mar 08, 2024 ADVANCE DIRECTIVE DISCUSSION [facility] Radiology Reports: +/- 30 days of [...] the Encounter. The data comes from all [place] treatment facilities. Date/Time Radiology Report Provider Source May 31, 2024 10:53 AM ORTHO [id number]-DIG,SUN,TUNL,W/B OTH AP STANDING: LEANNELUIS MANUEL FABIAN [id number] -1945 M Exm Date: MAY 31, 2024@10:53 Req Phys: YULISSA HENDERSON Loc: [facility] LEGAL CLERK HM VST (Req'g Loc) Img Loc: [facility] RADIOLOGY Service: [place] [address] (Case [id number] COMPLETE) ORTHO [id number],SUN,TUNL,W/B (RAD Detailed) CPT:45988 Reason for Study: chronic pain right knee Clinical History: patient reports outside xrays show bone on bone Report Status: Verified Date Reported: JUN 01, 2024 Date Verified: JUN 01, 2024 Asset Recovery Specialist E-Sig: Report: ORTHO [id number],SUN,TUNL,W/B OTH AP STANDING, 05/31/2024 11:07 AM EDT INDICATION: chronic pain right knee COMPARISON: None Impression: Right knee: No acute fracture or malalignment. Moderate tricompartmental degenerative change. Small inferior patellar pole enthesophyte. Vascular calcifications. 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 Primary Diagnostic Code: NO ALERT REQUIRED Primary Interpreting Staff: PINKY OBRIEN, Staff Physician Verified by hand packer for PINKY OBRIEN /PINKY SINGH [facility] Encounter Notes: All associated encounter notes This section contains the clinical notes associated to the Encounter. Date/Time Encounter Note(s) Provider Source May 12, 2024 10:18 AM TELEPHONE ENCOUNTE R NOTE: LOCAL TITLE: [facility] TELEPHONE NOTE STANDARD TITLE: TELEPHONE ENCOUNTER NOTE DATE OF NOTE: MAY 12, 2024@10:18 ENTRY DATE: MAY 12, 2024@10:18:36 AUTHOR: LYNN ALCOCER EXP COSIGNER: URGENCY: STATUS: COMPLETED Time spent on phone call: 5 MIN EMERGENCY PREPAREDNESS CALL- WINTER WEATHER CHECK EMERGENCY PREPAREDNESS CODE: LOW 3 Reviewed with recommendations for social distancing, washing hands frequently, avoiding ill persons. Does Quinlan have family or community support checking in on a regular basis? Yes [X] No [] Does Quinlan have access to and adequate supply of food and water to last for a week? Yes [X] No [] Do you receive Meals on Wheels? Yes [] No [X] -If yes remind them to follow instructions sent by [employer] regarding meal delivery at this time. Any barriers to obtaining food and water? Yes [] No [] Do you have enough medication to last for 30 days? Yes [X] No [] Do you have enough medical supplies to last you for a month? Yes [X] No [] N/A [] Do you have family or a caregiver that can help you obtain needed items for the next two weeks? Yes [X] No [] Do you have enough Oxygen to last for a week? Yes [] No [] N/A [X] Confirmed is aware of local utility providers and how to contact them. Provided with [place] Telephone Care phone number: [phone]. NO NEEDS AT THIS TIME-VISIT IS SCHEDULED FOR MAY 25 TO OBTAIN LABS. /rosette/ LYNN ALCOCER RN Signed: 05/12/2024 10:20 LYNN ALCOCER-Sav [facility]
--- OUTSIDE RECORDS SUMMARY | 2024-07-08 08:52 | XMS_ITS ---
Author Organization Unknown TREATMENT PLAN Planned Care Start Date Provider Encounter for Check-up [id number] [facility]
--- OUTSIDE RECORDS SUMMARY | 2024-07-08 08:52 | XMS_ITS | Encounter Summary ---
Author Name [facility] Organization [facility] Address [address] [place] [address] Care Team Providers Care Professor/Nurse Anesthetist Name Role Phone YULISSA HENDERSON Primary Care [...] PLAN F Mar 24, 2014 PLAN F [id number] LUIS MANUEL PERDOMO PATIENT [facility] [place] [facility]UECARD PREFERRED PROVIDER ORGANIZAT ION (PPO) [facility] Sep 21, 2012 [id number] LUIS MANUEL PERDOMO PATIENT [employer] ([id number]) PRESCRIPT ION [id number] Sep 21, 2012 [id number] [phone] LUIS MANUEL PERDOMO PATIENT MEDICARE (WNR) MEDICARE (M) PART B Sep 21, 2012 PART B [id number] NOEMI PERDOMO PATIENT MEDICARE (WNR) MEDICARE (M) PART A Jan 22, 2011 PART A [id number] NOEMI PERDOMO PATIENT MEDICARE PART D (WNR) MEDICARE (M) PART D Mar 24, 2014 PART D [id number] LUIS MANUEL PERDOMO PATIENT Selected Encounter This section includes the information on record at [place] for the Encounter. Date/Time Encounter Type Encounter Description Reason Pro vider Source Jan 21, 2024 02:59 PM Outpatient Encounter PRIMARY CARE/MEDICINE IHE Encounter Template Text not used by [place] Plan of Treatment: Future Appointments (+ 6 months) and Future Tests (+/- 45 days) The Plan of Treatment section includes future care activities for the patient from all [place] treatmentfacilities. This section includes future appointments and future orders which are active, pending or scheduled. Future Appointments This section includes appointments that were scheduled to occur 6 months from the date of the Encounter, up to a maximum of 20 appointments. The data comes from all [place] treatment facilities. Appointment Date/Time Appointment Type Appointme nt Facility Name Feb 06, 2024 10:00 AM AMBULATORY - MEDICINE [facility] Mar 11, 2024 08:00 AM AMBULATORY - NONE [facility] May 05, 2024 08:00 AM AMBULATORY - NONE [facility] Lab Results: +/- 30 days of the encounter This section includes the Chemistry and Hematology Lab Results on record with [place] for the patient. Radiology Reports and Pathology Reports are provided separately, in subsequent sections. Lab Results This section contains the Chemistry/Hematology Results that were resulted 30 days before or 30 daysafter the date of the Encounter. Date/Time Source Result Type Result - Unit Interpretation Reference Range Specimen Type Comment Feb 17, 2024 12:29 PM [facility] WN DRUG SCREEN EXPANDED IN-HOUSE URINE Specimen Type: URINE Comment: Screening method results are unconfirmed and are for medical use only. Unconfirmed screening results must not be used for non-medical purposes. Opiates test most sensitive for morphine, codeine and heroin and less sensitive for hydrocodone and hydromorphone where higher concentrations are needed for cut-off detection. Drugs of abuse screening is a preliminary analytical test result. A more specific alternate chemical method (GC/MS) must be used to obtain a confirmed analytical result. This assay provides a preliminary unconfirmed analytical test result that may be suitable for clinical management of patients in certain situations. Drug-test results should be interpreted in the context of clinical information. Patient metabolic characteristics can affect test outcome. Ordering Provider: BUCK HUNT Report Released Date/Time: Feb 06, 2024 03:45 PM Reporting Lab: [place] [id number] Performing Lab: [place] [phone] TETRAHYDROCANNABINOL SCREEN NEG Cuto ff < 50 AMPHETAMINE SCR NEG Cutoff < 1000 BARBITURATES SCR NEG Cutoff < 200 BENZODIAZEPINES SCR NEG Cutoff < 200 COCAINE METABOLITE SCR NEG Cutoff < 300 OPIATES SCR NEG Cutoff < 300 METHADONE SCR NEG Cutoff < 300 OXYCODONE SCR NEG Cutoff < 200 BUPRENORPHINE SCR IN-HOUSE NEG Cutof f < 5 FENTANYL SCREEN IN-HOUSE NEG Cutoff < 1 Feb 17, 2024 12:29 PM [facility] MICROALBUMIN/CREAT RATIO URINE Specimen Type: URINE Comment: Unable to calculate ratio due to low Microalbumin result. Ordering Provider: BUCK HUNT Report Released Date/Time: Feb 06, 2024 03:45 PM Reporting Lab: [place] [phone] Performing Lab: [place] [phone] CREATININE 102.7 mg/dL MICROALBUMIN QUANT <5.0 mg/L 0.0-30.0 .MICROALBUMIN/CREA RATIO comment ug/mg{creat} Feb 17, 2024 12:15 PM [facility] PANEL 1 PLASMA Specimen Type: PLASM A Comment: Estimated Glomerular Filtration Rate (eGFR) calculated using the 2020 Chronic Kidney Disease-Epidemiology (CKD-EPI) Collaboration creatinine equation; units of measure are mL/min/1.73 m2. Results are only valid for adults (>=18 years) whose serum creatinine is in a steady state. eGFR calculations are not valid for patients with acute kidney injury and for patients on dialysis. Creatinine-based estimates of kidney function may also be inaccurate in patients with reduced creatinine generation due to decreased muscle mass (e.g., malnutrition, severe hypoalbuminemia, sarcopenia, chronic neuromuscular disease, amputations, severe heart failure or liver disease) and in patients with increased creatinine generation due to increased muscle mass (e.g., muscle builders, anabolic steroids) or increased dietary intake. As drug clearance is proportional to total GFR and not GFR indexed to body surface area (BSA), in individuals with a BSA substantially different than 1.73 m2, drug dosing should be based on the reported eGFR value de-indexed from BSA by multiplying by the individual's BSA and dividing by 1.73. CKD is diagnosed based on abnormalities of kidney structure or function, present for >3 months, with implications for health and disease. CKD is classified and staged based on cause, eGFR and albuminuria (quantified as urine albumin to creatinine ratio). An eGFR >60 mL/min/1.73 m2 in the absence of increased urine albumin excretion or structural abnormalities does not represent CKD. eGFR CKD Interpretation (mL/min/1.73 m2) stage >=90 G1 Normal 60-89 G2 Mild decrease 45-59 G3A Mild to moderate decrease 30-44 G3B Moderate to severe decrease 15-29 G4 Severe decrease <15 G5 Kidney failure Ordering Provider: BUCK HUNT Report Released Date/Time: Feb 06, 2024 03:45 PM Reporting Lab: [address] [phone] Performing Lab: [address] [phone] CREATININE 0.87 mg/dL 0.72-1.25 UREA NITROGEN 13 mg/dL 9-25 GLUCOSE 119 mg/dL H 74-100 SODIUM 133 mmol/L L 136-145 POTASSIUM 4.4 mmol/L 3.5-5.1 CHLORIDE 100 mmol/L 98-107 CO2 23 mmol/L 22-29 CALCIUM 9.0 mg/dL 8.4-10.2 ANION GAP 10 meq/L 3-19 eGFR (CKD-EPI) 88 Feb 06, 2024 12:24 PM [facility] CBC/PLT BLOOD Specimen Type: BLOOD No comment entered. Ordering Provider: BUCK HUNT Report Released Date/Time: Feb 06, 2024 10:44 AM Reporting Lab: [address] [phone] Performing Lab: [address] [address] WBC 7.7 10*3/uL 5.0-10.0 RBC 4.27 10*6/uL L 4.6-6.2 HGB 12.2 g/dL L 14.0-18.0 HCT 37.5 L 42.0-52.0 MCV 87.8 fL 80.0-94.0 MCH 28.6 pg 27.0-31.0 MCHC 32.5 g/dL 32.0-36.0 PLT 236 10*3/uL 150-450 MPV 11.0 fL 9.0-13.1 RDW 14.0 11.0-16.0 NRBC 0.0 0.0-0.0 Feb 06, 2024 12:24 PM [facility] PANEL 5 PLASMA Specimen Type: PLASM A Comment: Estimated Glomerular Filtration Rate (eGFR) calculated using the 2020 Chronic Kidney Disease-Epidemiology (CKD-EPI) Collaboration creatinine equation; units of measure are mL/min/1.73 m2. Results are only valid for adults (>=18 years) whose serum creatinine is in a steady state. eGFR calculations are not valid for patients with acute kidney injury and for patients on dialysis. Creatinine-based estimates of kidney function may also be inaccurate in patients with reduced creatinine generation due to decreased muscle mass (e.g., malnutrition, severe hypoalbuminemia, sarcopenia, chronic neuromuscular disease, amputations, severe heart failure or liver disease) and in patients with increased creatinine generation due to increased muscle mass (e.g., muscle builders, anabolic steroids) or increased dietary intake. As drug clearance is proportional to total GFR and not GFR indexed to body surface area (BSA), in individuals with a BSA substantially different than 1.73 m2, drug dosing should be based on the reported eGFR value de-indexed from BSA by multiplying by the individual's BSA and dividing by 1.73. CKD is diagnosed based on abnormalities of kidney structure or function, present for >3 months, with implications for health and disease. CKD is classified and staged based on cause, eGFR and albuminuria (quantified as urine albumin to creatinine ratio). An eGFR >60 mL/min/1.73 m2 in the absence of increased urine albumin excretion or structural abnormalities does not represent CKD. eGFR CKD Interpretation (mL/min/1.73 m2) stage >=90 G1 Normal 60-89 G2 Mild decrease 45-59 G3A Mild to moderate decrease 30-44 G3B Moderate to severe decrease 15-29 G4 Severe decrease <15 G5 Kidney failure Ordering Provider: BUCK HUNT Report Released Date/Time: Feb 06, 2024 10:44 AM Reporting Lab: [address] [phone] Performing Lab: [address] [phone] CREATININE 0.91 mg/dL 0.72-1.25 UREA NITROGEN 17 mg/dL 9-25 GLUCOSE 121 mg/dL H 74-100 SODIUM 132 mmol/L L 136-145 POTASSIUM 4.2 mmol/L 3.5-5.1 CHLORIDE 102 mmol/L 98-107 CO2 22 mmol/L 22-29 CALCIUM 8.8 mg/dL 8.4-10.2 TOTAL PROTEIN 6.1 g/dL L 6.4-8.3 ALBUMIN 3.4 g/dL L 3.5-5.2 TOTAL BILIRUBIN 0.8 mg/dL 0.2-1.2 AST 15 U/L 5-34 ALT 22 U/L 0-55 ANION GAP 8 meq/L 3-19 ALK PHOS 127 U/L 40-150 eGFR (CKD-EPI) 87 Feb 06, 2024 12:24 PM [facility] 25-OH VITAMIN D SERUM Specime n Type: SERUM Comment: The National Institutes of Health (NIH) recommendations state: <12 ng/mL - Deficient 20 - 50 ng/mL - Optimal Levels - adequate for most people. >50 ng/mL - Increased risk of hypercalciuria/other health problems - clinical correlation is required. These reference ranges represent clinical decision values rather than population-based reference values. Ordering Provider: BUCK HUNT Report Released Date/Time: Feb 06, 2024 10:44 AM Reporting Lab: [address] [address] Performing Lab: [address] [address] 25-OH VITAMIN D 50.7 ng/mL H 20.0-50.0 Feb 06, 2024 12:24 PM [facility] B12 VITAMIN PLASMA Specimen Type: PLASM A Comment: Estimated Glomerular Filtration Rate (eGFR) calculated using the 2020 Chronic Kidney Disease-Epidemiology (CKD-EPI) Collaboration creatinine equation; units of measure are mL/min/1.73 m2. Results are only valid for adults (>=18 years) whose serum creatinine is in a steady state. eGFR calculations are not valid for patients with acute kidney injury and for patients on dialysis. Creatinine-based estimates of kidney function may also be inaccurate in patients with reduced creatinine generation due to decreased muscle mass (e.g., malnutrition, severe hypoalbuminemia, sarcopenia, chronic neuromuscular disease, amputations, severe heart failure or liver disease) and in patients with increased creatinine generation due to increased muscle mass (e.g., muscle builders, anabolic steroids) or increased dietary intake. As drug clearance is proportional to total GFR and not GFR indexed to body surface area (BSA), in individuals with a BSA substantially different than 1.73 m2, drug dosing should be based on the reported eGFR value de-indexed from BSA by multiplying by the individual's BSA and dividing by 1.73. CKD is diagnosed based on abnormalities of kidney structure or function, present for >3 months, with implications for health and disease. CKD is classified and staged based on cause, eGFR and albuminuria (quantified as urine albumin to creatinine ratio). An eGFR >60 mL/min/1.73 m2 in the absence of increased urine albumin excretion or structural abnormalities does not represent CKD. eGFR CKD Interpretation (mL/min/1.73 m2) stage >=90 G1 Normal 60-89 G2 Mild decrease 45-59 G3A Mild to moderate decrease 30-44 G3B Moderate to severe decrease 15-29 G4 Severe decrease <15 G5 Kidney failure Vitamin B12 test may not yield results when protein level of sample is too elevated. Ordering Provider: BUCK HUNT Report Released Date/Time: Feb 06, 2024 10:44 AM Reporting Lab: [facility] [address] [facility] [place] [address] Performing Lab: [facility] [address] [facility] [place] [address] B12 VITAMIN >2000 pg/mL H 213-816 Feb 06, 2024 12:24 PM [facility] TSH PLASMA Specimen Type: PLASM A Comment: Estimated Glomerular Filtration Rate (eGFR) calculated using the 2020 Chronic Kidney Disease-Epidemiology (CKD-EPI) Collaboration creatinine equation; units of measure are mL/min/1.73 m2. Results are only valid for adults (>=18 years) whose serum creatinine is in a steady state. eGFR calculations are not valid for patients with acute kidney injury and for patients on dialysis. Creatinine-based estimates of kidney function may also be inaccurate in patients with reduced creatinine generation due to decreased muscle mass (e.g., malnutrition, severe hypoalbuminemia, sarcopenia, chronic neuromuscular disease, amputations, severe heart failure or liver disease) and in patients with increased creatinine generation due to increased muscle mass (e.g., muscle builders, anabolic steroids) or increased dietary intake. As drug clearance is proportional to total GFR and not GFR indexed to body surface area (BSA), in individuals with a BSA substantially different than 1.73 m2, drug dosing should be based on the reported eGFR value de-indexed from BSA by multiplying by the individual's BSA and dividing by 1.73. CKD is diagnosed based on abnormalities of kidney structure or function, present for >3 months, with implications for health and disease. CKD is classified and staged based on cause, eGFR and albuminuria (quantified as urine albumin to creatinine ratio). An eGFR >60 mL/min/1.73 m2 in the absence of increased urine albumin excretion or structural abnormalities does not represent CKD. eGFR CKD Interpretation (mL/min/1.73 m2) stage >=90 G1 Normal 60-89 G2 Mild decrease 45-59 G3A Mild to moderate decrease 30-44 G3B Moderate to severe decrease 15-29 G4 Severe decrease <15 G5 Kidney failure Ordering Provider: BUCK HUNT Report Released Date/Time: Feb 06, 2024 10:44 AM Reporting Lab: [place] [address] Performing Lab: [address] [address] TSH 0.6365 m[IU]/mL 0.3500-4.9400 Feb 06, 2024 12:24 PM [facility] LIPID PROFILE PLASMA Specimen Type: PLASM A Comment: Estimated Glomerular Filtration Rate (eGFR) calculated using the 2020 Chronic Kidney Disease-Epidemiology (CKD-EPI) Collaboration creatinine equation; units of measure are mL/min/1.73 m2. Results are only valid for adults (>=18 years) whose serum creatinine is in a steady state. eGFR calculations are not valid for patients with acute kidney injury and for patients on dialysis. Creatinine-based estimates of kidney function may also be inaccurate in patients with reduced creatinine generation due to decreased muscle mass (e.g., malnutrition, severe hypoalbuminemia, sarcopenia, chronic neuromuscular disease, amputations, severe heart failure or liver disease) and in patients with increased creatinine generation due to increased muscle mass (e.g., muscle builders, anabolic steroids) or increased dietary intake. As drug clearance is proportional to total GFR and not GFR indexed to body surface area (BSA), in individuals with a BSA substantially different than 1.73 m2, drug dosing should be based on the reported eGFR value de-indexed from BSA by multiplying by the individual's BSA and dividing by 1.73. CKD is diagnosed based on abnormalities of kidney structure or function, present for >3 months, with implications for health and disease. CKD is classified and staged based on cause, eGFR and albuminuria (quantified as urine albumin to creatinine ratio). An eGFR >60 mL/min/1.73 m2 in the absence of increased urine albumin excretion or structural abnormalities does not represent CKD. eGFR CKD Interpretation (mL/min/1.73 m2) stage >=90 G1 Normal 60-89 G2 Mild decrease 45-59 G3A Mild to moderate decrease 30-44 G3B Moderate to severe decrease 15-29 G4 Severe decrease <15 G5 Kidney failure Ordering Provider: BUCK HUNT Report Released Date/Time: Feb 06, 2024 10:44 AM Reporting Lab: [address] [address] Performing Lab: [address] [address] CHOLESTEROL 136 mg/dL 0-199 TRIGLYCERIDE 154 mg/dL H 0-149 HDL CHOLESTEROL 37 mg/dL L 40-69 DIRECT LDL CHOL. 87 mg/dL 0-100 Feb 06, 2024 12:24 PM [facility] GLYCOHEMOGLOBIN BLOOD Specimen Type: BLOOD Comment: [place] guidelines for A1c interpretation: Glycemic control targets are based on Shared Decision Making between clinicians and patients. Criteria used to establish an A1c target recommendation can be found at https://www.pr.gov/qualityandpatientsafety/ and include the use of result accuracy and precision(CV) of the A1c tests clinicians utilize at their own sites of practice. Values obtained from A1C measurements can vary. For typical A1C assays, a reported value of 7.0 could actually be between 6.72 and 7.28 if measured by a reference method. A reported value of 9.0 could actually be between 8.73 and 9.27. Ref: https://ngsp.org/CAPdata.asp. The in-house [employer] D-100 analyzer has a historical CV <= 2%. Contact the laboratory for further performance characteristics of this assay. Ordering Provider: BUCK HUNT Report Released Date/Time: Feb 06, 2024 10:44 AM Reporting Lab: [address] [address] Performing Lab: [address] [address] GLYCOHEMOGLOBIN 6.4 4.4-6.4 Feb 06, 2024 12:24 PM [facility] HCV SERUM Specimen Type: SERUM Comment: FOR HCV TESTING: Reactive HCV indicates probable Hepatitis C infection. All reactive Hepatitis C antibody results are flagged (reported as REACTIVE H) to enhance infectious disease tracking for [facility] patients. A nonreactive HCV antibody result does not exclude the possibility of exposure to HCV. Refer to https://www.hepatitis.va.gov/ and the latest [facility] Hepatitis Directive for additional information and supplemental testing guidelines. Ordering Provider: BUCK HUNT Report Released Date/Time: Feb 06, 2024 10:45 AM Reporting Lab: [facility] [address] [facility] [place] [address] Performing Lab: [place] [id number] [facility] [place] [address] HCV Nonreactive Nonreactive Advance Directives: All historical and current Section Date Range: From patient's date of to the date document was created. This section includes ALL of a patient's completed or amended [place] Advance and Rescinded Directives. The entries below indicate that a directive exists for the patient, but an actual copy is not included with this document. The data comes from all [place] facilities. Date Advance Directives Provider Source Mar 08, 2024 ADVANCE DIRECTIVE DISCUSSION [facility] Encounter Notes: All associated encounter notes This section contains the clinical notes associated to the Encounter. Date/Time Encounter Note(s) Provider Source Jan 21, 2024 02:59 PM PRIMARY CARE NOTE: LOCAL TITLE: Pc Chart Review Note STANDARD TITLE: PRIMARY CARE NOTE DATE OF NOTE: JAN 21, 2024@14:59 ENTRY DATE: JAN 21, 2024@15:00:19 AUTHOR: BUCK HUNT EXP COSIGNER: URGENCY: STATUS: COMPLETED History of right ankle fracture recently History of left total knee replacement Followed by Dr. Dave Diamond urologist Outside PCP Bertha Allen in [place] No known allergies Med list: Aspirin 81 mg daily Atorvastatin 20 mg daily Bisoprolol fumarate 5 mg daily Vitamin D3 2000 units twice a day Famotidine 20 mg twice a day Gabapentin 200 mg twice a day Leuprolide acetate 45 mg subcu every 6 months Metformin ER 500 mg daily Methenamine hippurate 1 g twice a day Ocrevus 600 mg IV every 6 months Psyllium 0.52 g daily Silodosin 8 mg daily Vitamin B12 folate acid 0.5 to 1 mg daily Vitamin D 400 units daily PreserVision a reds 1 tab twice a day Medical history: Enlarged prostate Macular degeneration Prostate cancer GERD Diabetes Hypertension Multiple sclerosis Chronic pain [place] COPD Bilateral lower extremity edema Surgical history: Prostate surgery Appendectomy Family history: COPD Type 2 diabetes Hyperlipidemia Hypertension Prostate cancer Smoking history: Never smoker Alcohol intake: Never Labs: 01/11/2024 WBC 7.1 Hemoglobin 12.2 Hematocrit 35.7 Platelets 179 BUN 17 Creatinine 0.80 GFR 94 AST 33 ALT 34 /es/ BUCK HUNT [employer]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
--- OUTSIDE RECORDS SUMMARY | 2024-07-08 08:52 | XMS_ITS | Encounter Summary ---
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 Name Role Phone YULISSA HENDERSON Primary [...] PLAN F Mar 24, 2014 PLAN F [id number] [phone] LUIS MANUEL PERDOMO PATIENT [facility] [place] BLUECARD PREFERRED PROVIDER ORGANIZAT ION (PPO) [facility] Sep 21, 2012 [id number] [phone] LUIS MANUEL PERDOMO PATIENT [employer] ([id number]) PRESCRIPT ION [id number] Sep 21, 2012 [id number] LUIS MANUEL PERDOMO PATIENT MEDICARE (WNR) MEDICARE (M) PART B Sep 21, 2012 PART B [id number] [phone] NOEMI PERDOMO PATIENT MEDICARE (WNR) MEDICARE (M) PART A Jan 22, 2011 PART A [id number] NOEMI PERDOMO PATIENT MEDICARE PART D (WNR) MEDICARE (M) PART D Mar 24, 2014 PART D [id number] LUIS MANUEL PERDOMO PATIENT Selected Encounter This section includes the information on record at [place] for the Encounter. Date/Time Encounter Type Encounter Description Reason Provider Source May 25, 2024 08:43 AM Outpatient Encounter [facility] - PHYSICIAN ICD-10-CM K21.9 Gastro-esophageal reflux disease without esophagitis MOHAMUDQUEWESLY Stephen Encounter Template Text not used by [place] Assessments - Encounter Diagnoses This section includes the primary and secondary diagnoses documented for the Encounter. Date/Time Primary/Secondary Diagnosis Diagnosis Name Provider Source May 25, 2024 01:39 PM PRIMARY Gastro-esophageal reflux disease without esophagitis MOHAMUDWESLY [facility] May 25, 2024 01:39 PM SECONDARY Essential (primary) hypertension MOHAMUDWESLY [facility] May 25, 2024 01:39 PM SECONDARY Hyperlipidemia, unspecified [facility] May 25, 2024 01:39 PM SECONDARY Multiple sclerosis COYLE,WESLY [facility] May 25, 2024 01:39 PM SECONDARY Type 2 diabetes mellitus with unspecified complications [facility] Plan of Treatment: Future Appointments (+ 6 months) and Future Tests (+/- 45 days) The Plan of Treatment section includes future care activities for the patient from all [place] [facility]. This section includes future appointments and future orders which are active, pending or scheduled. Future Appointments This section includes appointments that were scheduled to occur 6 months from the date of the Encounter, up to a maximum of 20 appointments. The data comes from all [place] treatment facilities. Appointment Date/Time Appointment Type Appointme nt Facility Name August 19, 2024 01:20 PM AMBULATORY - SURGERY [facility] Active, Pending, and Scheduled Orders This section includes a listing of several types of active, pending, and scheduled orders, including clinic medications orders, diagnostic test orders, procedure orders and consult orders; where the start date of the order is 45 days before the date of the Encounter or 45 days after the date of theEncounter. The data comes from all [place] treatment facilities. 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 Radiology Reports and Pathology Reports are provided separately, in subsequent sections. Lab Results This section contains the Chemistry/Hematology Results that were resulted 30 days before or 30 daysafter the date of the Encounter. Date/Time Source Result Type Result - Unit Interpretation Reference Range Specimen Type Comment May 25, 2024 11:30 AM [facility] N IRON/TIBC PLASMA Specimen Type: PLASMA No comment entered. Ordering Provider: YULISSA HENDERSON Report Released Date/Time: Apr 22, 2024 08:13 AM Reporting Lab: [address] [address] Performing Lab: [address] [address] IRON 53 ug/dL L 65-175 TIBC 233 mg/dL L 250-425 IRON SATURATION 23 20-50 May 25, 2024 11:30 AM [facility] FERRITIN PLASMA Specimen Type: PLASMA No comment entered. Ordering Provider: YULISSA HENDERSON Report Released Date/Time: Apr 22, 2024 08:13 AM Reporting Lab: [address] [address] Performing Lab: [address] [address] FERRITIN 141.1 ng/mL 21.8-274.7 May 25, 2024 11:30 AM [facility] CBC/PLT BLOOD Specimen Type: BLOOD No comment entered. Ordering Provider: YULISSA HENDERSON Report Released Date/Time: Apr 22, 2024 08:13 AM Reporting Lab: [address] [address] Performing Lab: [address] [address] WBC 9.6 10*3/uL 5.0-10.0 RBC 4.00 10*6/uL [...] and tobacco- related health factors from the [place] facility where the Encounter took place. Current Smoking Status This section includes the most current smoking, or tobacco-related health factor, from the [place] facility where the Encounter took place. Date/Time Current Smoking Status Comment Facil ity Feb 06, 2024 10:00 AM VA-TOBACCO USER SOME DAYS [facility] Tobacco Use History This section includes a history of the smoking, or tobacco-related health factors, that were collected on or before the date of the Encounter. The data comes from the [place] facility where the Encounter took place. 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 This section includes ALL of a patient's completed or amended [place] Advance and Rescinded Directives. The entries below indicate that a directive exists for the patient, but an actual copy is not included with this document. The data comes from all [facility]. Date Advance Directives Provider Source Mar 08, 2024 ADVANCE DIRECTIVE DISCUSSION [facility] Radiology Reports: +/- 30 days of the [...] the Encounter. The data comes from all [place] treatment facilities. 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 (Req'g Loc) Img Loc: [facility] RADIOLOGY Service: [place] [address] (Case [id number] COMPLETE) ORTHO [id number],SUN,TUNL,W/B (RAD Detailed) CPT:66259 Reason for Study: chronic pain right knee Clinical History: patient reports outside xrays show bone on bone Report Status: Verified Date Reported: JUN 01, 2024 Date Verified: JUN 01, 2024 Clinical Dietitian E-Sig: Report: ORTHO [id number],SUN,TUNL,W/B OTH AP STANDING, 05/31/2024 11:07 AM EDT INDICATION: chronic pain right knee COMPARISON: None Impression: Right knee: No acute fracture or malalignment. Moderate tricompartmental degenerative change. Small inferior patellar pole enthesophyte. Vascular calcifications. 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 Primary Diagnostic Code: NO ALERT REQUIRED Primary Interpreting Staff: PINKY OBRIEN, Staff Physician Verified by instrument specialist for PINKY OBRIEN /PINKY SINGH [facility] Encounter Notes: All associated encounter notes This section contains the clinical notes associated to the Encounter. Date/Time Encounter Note(s) Provider Source May 25, 2024 08:43 AM [facility] ATTENDING NOT E: LOCAL TITLE: [facility] ATTENDING NOTE STANDARD TITLE: [facility] ATTENDING NOTE DATE OF NOTE: MAY 25, 2024@08:43 ENTRY DATE: MAY 25, 2024@08:43:49 AUTHOR: WESLY COYLE EXP COSIGNER: URGENCY: STATUS: COMPLETED I have attended this [...] Date:03/11/2024 Care Plan details are in the [facility] Interdisciplinary Plan of Care Note. Estimated time (minutes) spent in preparations, discussions and care plan review: / Wesly Coyle D.O. [facility] Attending Signed: 05/25/2024 13:39 [facility]
--- OUTSIDE RECORDS SUMMARY | 2024-07-08 08:52 | XMS_ITS | Encounter Summary ---
Author Name [facility] [place] [facility] [place] Address [address] [place] [id number] Care Team Providers Care Windmill Technician Name Role Phone YULISSA HENDERSON Primary Care [...] PLAN F Mar 24, 2014 PLAN F [id number] LUIS MANUEL PERDOMO PATIENT [facility] PREFERRED PROVIDER ORGANIZAT ION (PPO) [facility] Sep 21, 2012 [id number] [phone] LUIS MANUEL PERDOMO PATIENT [employer] ([id number]) PRESCRIPT ION [id number] Sep 21, 2012 [id number] LUIS MANUEL PERDOMO PATIENT MEDICARE (WNR) MEDICARE (M) PART B Sep 21, 2012 PART B [id number] NOEMI PERDOMO PATIENT MEDICARE (WNR) MEDICARE (M) PART A Jan 22, 2011 PART A [id number] NOEMI PERDOMO PATIENT MEDICARE PART D (WNR) MEDICARE (M) PART D Mar 24, 2014 PART D [id number] LUIS MANUEL PERDOMO PATIENT Selected Encounter This section includes the information on record at [place] for the Encounter. Date/Time Encounter Type Encounter Description Reason Provider Source Feb 06, 2024 10:00 AM OFFICE O/P NEW [place] 60 MIN PRIMARY CARE/MEDICINE ICD-10-CM G35 Multiple sclerosis COMER,BUCK Campos Stephen Encounter Template Text not used by [place] Assessments - Encounter Diagnoses This section includes the primary and secondary diagnoses documented for the Encounter. Date/Time Primary/Secondary Diagnosis Diagnosis Name Provider Source Feb 06, 2024 11:38 AM PRIMARY Multiple sclerosis COMER,BUCK Campos [facility] Feb 06, 2024 11:38 AM SECONDARY Carcinoma in situ of prostate COMER,BUCK Campos [facility] Feb 06, 2024 11:38 AM SECONDARY Essential (primary) hypertension COMER,BUCK Campos [facility] Feb 06, 2024 11:38 AM SECONDARY Hyperlipidemia, unspecified COMER,BUCK Campos [facility] Feb 06, 2024 11:38 AM SECONDARY Mixed incontinence COMER,BUCK Campos [facility] Feb 06, 2024 11:38 AM SECONDARY Pain in right knee COMER,BUCK Campos [facility] Feb 06, 2024 11:38 AM SECONDARY Type 2 diabetes mellitus with unspecified complications COMER,BUCK Campos [facility] Feb 06, 2024 11:38 AM SECONDARY Unsp fracture of shaft of right fibula, init for clos fx COMER,BUCK Campos [facility] Feb 06, 2024 11:38 AM SECONDARY Unspecified macular degeneration COMER,BUCK Campos [facility] Plan of Treatment: Future Appointments (+ 6 months) and Future Tests (+/- 45 days) The Plan of Treatment section includes future care activities for the patient from all [place] treatmentfacilities. This section includes future appointments and future orders which are active, pending or scheduled. Future Appointments This section includes appointments that were scheduled to occur 6 months from the date of the Encounter, up to a maximum of 20 appointments. The data comes from all [place] treatment facilities. Appointment Date/Time Appointment Type Appointme nt Facility Name Mar 11, 2024 08:00 AM AMBULATORY - NONE [facility] May 05, 2024 08:00 AM AMBULATORY - NONE [facility] Lab Results: +/- 30 days of the encounter This section includes the Chemistry and Hematology Lab Results on record with [place] for the patient. Radiology Reports and Pathology Reports are provided separately, in subsequent sections. Lab Results This section contains the Chemistry/Hematology Results that were resulted 30 days before or 30 daysafter the date of the Encounter. Date/Time Source Result Type Result - Unit Interpretation Reference Range Specimen Type Comment Feb 17, 2024 12:29 PM [facility] WN DRUG SCREEN EXPANDED IN-HOUSE URINE Specimen [...] Feb 06, 2024 03:45 PM Reporting Lab: [address] [address] Performing Lab: [address] [address] TETRAHYDROCANNABINOL SCREEN NEG Cuto ff < 50 [...] < 1 Feb 17, 2024 12:29 PM [facility] MICROALBUMIN/CREAT RATIO URINE Specimen Type: URINE Comment: Unable to calculate ratio due to low Microalbumin result. Ordering Provider: COMER,BUCK R Report Released Date/Time: Feb 06, 2024 03:45 PM Reporting Lab: [facility] [address] [facility] [address] Performing Lab: [address] [address] CREATININE 102.7 mg/dL MICROALBUMIN QUANT <5.0 mg/L 0.0-30.0 .MICROALBUMIN/CREA RATIO comment ug/mg{creat} Feb 17, 2024 12:15 PM [facility] Specimen Type: PLASM A [...] Feb 06, 2024 03:45 PM Reporting Lab: [address] [address] Performing Lab: [address] [address] CREATININE 0.87 mg/dL 0.72-1.25 UREA NITROGEN 13 mg/dL 9-25 GLUCOSE 119 mg/dL H 74-100 SODIUM 133 mmol/L L 136-145 POTASSIUM 4.4 mmol/L 3.5-5.1 CHLORIDE 100 mmol/L 98-107 CO2 23 mmol/L 22-29 CALCIUM 9.0 mg/dL 8.4-10.2 ANION GAP 10 meq/L 3-19 eGFR (CKD-EPI) 88 Feb 06, 2024 12:24 PM [facility] CBC/PLT BLOOD Specimen Type: BLOOD No comment entered. Ordering Provider: BUCK HUNT Report Released Date/Time: Feb 06, 2024 10:44 AM Reporting Lab: [address] [address] Performing Lab: [address] [address] WBC 7.7 10*3/uL 5.0-10.0 RBC 4.27 10*6/uL L 4.6-6.2 HGB 12.2 g/dL L 14.0-18.0 HCT 37.5 L 42.0-52.0 MCV 87.8 fL 80.0-94.0 MCH 28.6 pg 27.0-31.0 MCHC 32.5 g/dL 32.0-36.0 PLT 236 10*3/uL 150-450 MPV 11.0 fL 9.0-13.1 RDW 14.0 11.0-16.0 NRBC 0.0 0.0-0.0 Feb 06, 2024 12:24 PM [facility] PANEL 5 PLASMA Specimen Type: PLASM A [...] Feb 06, 2024 10:44 AM Reporting Lab: [address] [address] Performing Lab: [address] [address] CREATININE 0.91 mg/dL 0.72-1.25 UREA NITROGEN 17 [...] (CKD-EPI) 87 Feb 06, 2024 12:24 PM [facility] 25-OH VITAMIN D SERUM Specime n Type: [...] Feb 06, 2024 10:44 AM Reporting Lab: [address] [address] Performing Lab: [address] [address] 25-OH VITAMIN D 50.7 ng/mL H 20.0-50.0 Feb 06, 2024 12:24 PM [facility] B12 VITAMIN PLASMA Specimen Type: PLASM A [...] Feb 06, 2024 10:44 AM Reporting Lab: [address] [address] Performing Lab: [address] [address] B12 VITAMIN >2000 pg/mL H 213-816 Feb 06, 2024 12:24 PM [facility] TSH PLASMA Specimen Type: PLASM A Comment: [...] Feb 06, 2024 10:44 AM Reporting Lab: [address] [address] Performing Lab: [address] [address] TSH 0.6365 m[IU]/mL 0.3500-4.9400 Feb 06, 2024 12:24 PM [facility] LIPID PROFILE PLASMA Specimen Type: PLASM A [...] Feb 06, 2024 10:44 AM Reporting Lab: [address] [address] Performing Lab: [address] [address] CHOLESTEROL 136 mg/dL 0-199 TRIGLYCERIDE 154 mg/dL H 0-149 HDL CHOLESTEROL 37 mg/dL L 40-69 DIRECT LDL CHOL. 87 mg/dL 0-100 Feb 06, 2024 12:24 PM [facility] GLYCOHEMOGLOBIN BLOOD Specimen Type: BLOOD Comment: [place] guidelines for A1c interpretation: Glycemic control targets are based on Shared Decision Making between clinicians and patients. Criteria used to establish an A1c target recommendation can be found at https://www.[place].gov/qualityandpatientsafety/ and include the use of result accuracy [...] 8.73 and 9.27. Ref: https://ngsp.org/CAPdata.asp. The in-house [employer] D-100 analyzer has a historical CV <= 2%. Contact the laboratory for further performance characteristics of this assay. Ordering Provider: BUKC HUNT Report Released Date/Time: Feb 06, 2024 10:44 AM Reporting Lab: [address] [address] Performing Lab: [address] [address] GLYCOHEMOGLOBIN 6.4 4.4-6.4 Feb 06, 2024 12:24 PM [facility] HCV SERUM Specimen Type: SERUM Comment: FOR HCV TESTING: Reactive HCV indicates probable Hepatitis C infection. All reactive Hepatitis C antibody results are flagged (reported as REACTIVE H) to enhance infectious disease tracking for [facility] patients. A nonreactive HCV antibody result does not exclude the possibility of exposure to HCV. Refer to https://www.hepatitis.va.gov/ and the latest [facility] Hepatitis Directive for additional information and supplemental testing guidelines. Ordering Provider: BUCK HUNT Report Released Date/Time: Feb 06, 2024 10:45 AM Reporting Lab: [address] [address] Performing Lab: [address] [address] HCV Nonreactive Nonreactive Vital Signs: All taken on the encounter date This section contains inpatient and outpatient Vital Signs collected on the date of the Encounter. Date/Time Temperature Pulse Blood Pressure Respiratory Rate SP02 Pain Height Weight Body Mass Index Source Feb 06, 2024 10:04 AM 144/76 [facility] Feb 06, 2024 09:58 AM 97.2 66 148/79 12 96 0 69 251 37 [facility] Social History: Smoking Status (Most current) and Tobacco Use (All prior to encounter date) This section includes the most current, and the historical, smoking and tobacco- related health factors from the [place] facility where the Encounter took place. Current Smoking Status This section includes the most current smoking, or tobacco-related health factor, from the [place] facility where the Encounter took place. Date/Time Current Smoking Status Comment Facil ity Feb 06, 2024 10:00 AM VA-TOBACCO USER SOME DAYS [facility] Tobacco Use History This section includes a history of the smoking, or tobacco-related health factors, that were collected on or before the date of the Encounter. The data comes from the [place] facility where the Encounter took place. Date/Time Smoking Status/Tobacco Use Comment F acility Feb 06, 2024 10:00 AM VA-TOBACCO USE 30 YEARS OR MORE [facility] Feb 06, 2024 10:00 AM VA-TOBACCO USE ADVICE [facility] Feb 06, 2024 10:00 AM VA-TOBACCO USE SUPERVISOR ALUM PLANT NO [facility] Feb 06, 2024 10:00 AM VA-TOBACCO USE MED NO [facility] Feb 06, 2024 10:00 AM VA-TOBACCO USER SOME DAYS [facility] Advance Directives: All historical and current Section Date Range: From patient's date of to the date document was created. This section includes ALL of a patient's completed or amended [place] Advance and Rescinded Directives. The entries below indicate that a directive exists for the patient, but an actual copy is not included with this document. The data comes from all [place] facilities. Date Advance Directives Provider Source Mar 08, 2024 ADVANCE DIRECTIVE DISCUSSION [place] [facility] Encounter Notes: All associated encounter notes This section contains the clinical notes associated to the Encounter. Date/Time Encounter Note(s) Provider Source Feb 17, 2024 04:23 PM GERIATRIC MEDICINE NOTE: LOCAL TITLE: GERIPACT LAB/IMAGING RESULTS LETTER STANDARD TITLE: GERIATRIC MEDICINE NOTE DATE OF NOTE: FEB 17, 2024@16:23 ENTRY DATE: FEB 17, 2024@16:23:13 AUTHOR: BUCK HUNT COSIGNER: URGENCY: STATUS: COMPLETED [facility] [address] [place] [address] Mr. LUIS MANUEL PERALTA LEANNE [address] [address] Jan Dear Mr. LUIS MANUEL PERDOMO This letter is to inform you of your recent test results. Please call the clinic if you have any questions about this information or if you need to respond to any comment or recommendations noted below. Results Laboratory Tests: Recent labwork Collection DT Specimen Test Name Result Units Ref Range 02/17/2024 12:29 URINE !! AMPHETAMINE SCR NEG Ref: Cutoff < 1000 !! BARBITURATES SCR NEG Ref: Cutoff < 200 !! BENZOD NEG Ref: Cutoff < 200 !! COCAINu NEG Ref: Cutoff < 300 !! METHADONE SCR NEG Ref: Cutoff < 300 !! OPIATES SCR NEG Ref: Cutoff < 300 !! OXYCODONE SCR NEG Ref: Cutoff < 200 !! THC SCR NEG Ref: Cutoff < 50 !! BUPRENORPHINE NEG Ref: Cutoff < 5 !! FENTANYL SCREEN NEG Ref: Cutoff < 1 02/17/2024 12:29 URINE !! CREATININE 102.7 mg/dL !! MICROALBUMIN ROMY <5.0 mg/L 0.0 - 30.0 !! KS/CREA comment ug/mg Crea 02/17/2024 12:15 PLASMA!! SODIUM 133 L mmol/L 136 - 145 !! POTASSIUM 4.4 mmol/L 3.5 - 5.1 !! CHLORIDE 100 mmol/L 98 - 107 !! CO2 23 mmol/L 22 - 29 !! ANION GAP 10.0 mEq/L 3 - 19 !! GLUCOSE 119 H mg/dL 74 - 100 !! UREA NITROGEN 13 mg/dL 9 - 25 !! CREATININE 0.87 mg/dL 0.72 - 1.25 !! eGFR (CKD-EPI) 88 SEE EVAL !! CALCIUM 9.0 mg/dL 8.4 - 10.2 !! Indicates COMMENTS AVAILABLE...Refer to Interim Lab Report. All of your test results were normal with the exception of The labs that you had drawn today in the urine that you dropped off today was all within normal and acceptable ranges. Thank you so much! . Sincerely, /rosette/ BUCK HUNT SENIOR BACKUP ADMINISTRATOR Patient Record Number [id number] BUCK HUNT [facility] Feb 06, 2024 03:40 PM GERIATRIC MEDICINE NOTE: LOCAL TITLE: GERIPACT LAB/IMAGING RESULTS LETTER STANDARD TITLE: GERIATRIC MEDICINE NOTE DATE OF NOTE: FEB 06, 2024@15:40 ENTRY DATE: FEB 06, 2024@15:40:49 AUTHOR: BUCK HUNT EXP COSIGNER: URGENCY: STATUS: COMPLETED [facility] [address] [place] [address] Mr. LUIS MANUEL PERDOMO [address] [address] Jan Dear Mr. LUIS MANUEL PERDOMO This letter is to inform you of your recent test results. Please call the clinic if you have any questions about this information or if you need to respond to any comment or recommendations noted below. Results Laboratory Tests: Recent labwork Collection DT Specimen Test Name Result Units Ref Range 02/06/2024 12:24 SERUM !! 25-OH VITAMIN D 50.7 H ng/mL 20.0 - 50.0 02/06/2024 12:24 SERUM !! HCV Nonreactive Ref: Nonreactive 02/06/2024 12:24 PLASMA!! CHOLESTEROL 136 mg/dL 0 - 199 !! TRIGLYCERIDE 154 H mg/dL 0 - 149 !! HDL CHOLESTEROL 37 L mg/dL 40 - 69 !! DIRECT LDL CHOL. 87 mg/dL 0 - 100 !! SODIUM 132 L mmol/L 136 - 145 !! POTASSIUM 4.2 mmol/L 3.5 - 5.1 !! CHLORIDE 102 mmol/L 98 - 107 !! CO2 22 mmol/L 22 - 29 !! ANION GAP 8.0 mEq/L 3 - 19 !! GLUCOSE 121 H mg/dL 74 - 100 !! UREA NITROGEN 17 mg/dL 9 - 25 !! CREATININE 0.91 mg/dL 0.72 - 1.25 !! eGFR (CKD-EPI) 87 SEE EVAL !! CALCIUM 8.8 mg/dL 8.4 - 10.2 !! TOTAL PROTEIN 6.1 L g/dL 6.4 - 8.3 !! ALBUMIN 3.4 L g/dL 3.5 - 5.2 !! TOTAL BILIRUBIN 0.8 mg/dL 0.2 - 1.2 !! AST 15 U/L 5 - 34 !! ALT 22 U/L 0 - 55 !! ALK PHOS 127 U/L 40 - 150 !! B12 VITAMIN >2000 H pg/mL 213 - 816 !! TSH 0.6365 mIU/mL 0.3500 - 4.9400 02/06/2024 12:24 BLOOD !! GLYCOHEMOGLOBIN 6.4 % 4.4 - 6.4 02/06/2024 12:24 BLOOD WBC 7.7 K/cmm 5.0 - 10.0 RBC 4.27 L M/cmm 4.6 - 6.2 HGB 12.2 L g/dL 14.0 - 18.0 HCT 37.5 L % 42.0 - 52.0 MCV 87.8 fL 80.0 - 94.0 MCH 28.6 pg 27.0 - 31.0 MCHC 32.5 g/dL 32.0 - 36.0 RDW 14.0 % 11.0 - 16.0 PLT 236 K/cmm 150 - 450 MPV 11.0 fL 9.0 - 13.1 NRBC 0.0 % 0.0 - 0.0 !! Indicates COMMENTS AVAILABLE...Refer to Interim Lab Report. All of your test results were normal with the exception of Your triglycerides are little elevated at 154 so please try low-fat diet to help with this number. Your vitamin B12 number is greater than 2000 so you do not mind to stop that 1 for about 3 to 4 months and then you can restart it. You are slightly anemic your hemoglobin is 12.2 and your hematocrit is 37.5. You might want to mention this to your primary care doctor and let him follow-up on that at your next visit with him. Other than that your labs are within normal and acceptable ranges. And I will reorder the urine test that we need that you can come in and drop off at your convenience. Thank you . Sincerely, /rosette/ BUCK HUNT [facility] Patient Record Number [id number] BUCK HUNT [facility] Feb 06, 2024 11:57 AM PRIMARY CARE PEDRO RS: LOCAL TITLE: EM PATIENT LETTER STANDARD TITLE: PRIMARY CARE LETTERS DATE OF NOTE: FEB 06, 2024@11:57 ENTRY DATE: FEB 06, 2024@11:58:02 AUTHOR: BUCK HUNT EXP COSIGNER: URGENCY: STATUS: COMPLETED [facility] [address] [place] [address] FEB 06, 2024 Mr. LUIS MNAUEL PERDOMO [address] [place], [place] [address] Your current medication list is attached with any changes we may have talked about at your last visit. It is important that your primary care team is aware of all medications you are currently prescribed by our office or by providers outside of [place]. Attached is a detailed list of all medications on your record that are currently prescribed. Please review the list and notify your team immediately if you see errors, have questions, or see changes that were not discussed with you at your last visit. Thank you for your service to our country and thank you for allowing us to serve you. Active and Recently Outpatient Medications (excluding Supplies): Active Non-VA Medications Status 1) Non-VA ASPIRIN 81MG CHEW TAB 81MG MOUTH DAILY ACTIVE 2) Non-VA ATORVASTATIN CALCIUM TAB 20MG 20MG MOUTH AT ACTIVE BEDTIME 3) Non-VA BISOPROLOL FUMARATE 5MG TAB 5MG MOUTH DAILY ACTIVE 4) Non-VA CHOLECALCIF 10MCG (D3-400UNIT) TAB 10MCG MOUTH ACTIVE DAILY 5) Non-VA CHOLECALCIF 50MCG (D3-2,000UNIT) TAB 50MCG ACTIVE MOUTH TWICE A DAY 6) Non-VA CYANOCOBALAMIN 1000MCG TAB 1000MCG MOUTH DAILY ACTIVE 7) Non-VA FAMOTIDINE 20MG TAB 20MG MOUTH TWICE A DAY ACTIVE NEEDED 8) Non-VA GABAPENTIN TAB 100MG MOUTH FOUR TIMES A DAY ACTIVE 9) Non-VA LEUPROLIDE (ELIGARD) 45MG(6 MONTH)LA INJ 45MG ACTIVE (1 DOSE) UNDER THE SKIN ONCE 10) Non-VA METFORMIN HCL 500MG 24HR SA TAB 500MG MOUTH ACTIVE DAILY 11) Non-VA METHENAMINE HIPPURATE 1GM TAB 1GM MOUTH TWICE ACTIVE A DAY 12) Non-VA OCRELIZUMAB INJ,SOLN INTO THE VEIN ACTIVE DIRECTED 13) Non-VA POLYETHYLENE GLYCOL 3350 ORAL PWDR 17 GRAMS ACTIVE (ONE CAPFUL FILLED TO LINE) IN LIQUID MOUTH DAILY 14) Non-VA PRESERVISION AREDS VITAMIN 2 CAPSULES MOUTH ACTIVE DAILY 15) Non-VA PSYLLIUM 520MG CAP 1 CAPSULE MOUTH DAILY ACTIVE 16) Non-VA SILODOSIN 8MG ORAL CAP 8MG MOUTH DAILY ACTIVE Sincerely, /rosette/ BUCK HUNT APRN Patient Record Number [id number] [facility] BUCK HUNT [facility] Feb 06, 2024 10:03 AM ADDENDUM: LOCAL TITLE: Addendum STANDARD TITLE: ADDENDUM DATE OF NOTE: FEB 06, 2024@10:03:48 ENTRY DATE: FEB 06, 2024@10:03:49 AUTHOR: MEGAN FARLEY COSIGNER: URGENCY: STATUS: COMPLETED BP recheck 144/76 /rosette/ Megan Farley LPN LICENSED PRACTICAL NURSE Signed: 02/06/2024 10:04 Receipt Acknowledged By: 02/06/2024 14:02 /rosette/ BUCK HUNT APRN --- Original Document --- 02/06/24 [employer] Tech/stephani Note: The patient was given a list of his current medications, instructed to review and discuss any changes or problems with their provider. Patient advised to carry a list of current medications and any allergies with them in the event of emergency situations. Yes - [place]/Caregiver verbalized understanding of topics discussed and education provided Provider notified of elevated B/P >/= 140/90. Yes Alcohol Use Screen (AUDIT-C): Alcohol Screen: SCREEN FOR ALCOHOL (AUDIT-C) An alcohol screening test (AUDIT-C) was negative (score=0). 1. How often did you have a drink containing alcohol in the past year? Consider a drink to be a 12 ounce can or bottle of regular beer, 8 ounces of malt liquor, a 5 ounce glass of table wine, or a 1.5 ounce shot of liquor (like scotch, gin, or vodka). Never 2. How many drinks containing alcohol did you have on a typical day when you were drinking in the past year? Response not required due to responses to other questions. 3. How often did you have six or more drinks on one occasion in the past year? Response not required due to responses to other questions. Tobacco Use Screening: The patient uses tobacco but not every day. The patient does not use tobacco within 30 minutes of waking up. The patient has been smoking or using tobacco for thirty years or more. Patient was advised to quit smoking and/or using tobacco. Discussion with patient included: - Quitting smoking or tobacco use is one of the most important things you can do to protect and improve your health and [place] has the resources to support you. - Set a quit date when you are ready to quit. - Get support from your family and friends. - Review any past quit attempts- What helped? What didn't? - On the day you plan to quit, get rid of all cigarettes and tobacco products from your home, car or work. - Using a combination of behavioral counseling or other support strategies and FDA-approved cessation medications is the most effective way to ensure success in quitting. Patient was offered Behavioral Counseling and other support strategies to assist with quitting. Discussion with patient included: - Behavioral counseling or other support strategies greatly increases your chances of successfully quitting smoking or tobacco use by helping you develop a quit plan and providing support and other strategies to make behavioral changes to help you quit. - [place] has a number of behavioral counseling options to help you with quitting, including: * Provide information about the facility smoking or tobacco use treatment options or clinics * [place]'s national quitline, 4-828-CHFH-VET, with counseling available Friday-Friday The patient was not interested in receiving additional information about how to use the treatment options discussed. Patient was offered FDA-approved cessation medications. Discussion with patient included: - Medications for Nicotine replacement therapy such as the patch, gum or lozenge, and other medications such as varenicline or bupropion, can play an important role in the initial weeks and months after you quit smoking or tobacco use. - Medications help with cravings and withdrawal symptoms and they greatly increase your chances of successfully quitting. The patient was not interested in a prescription for tobacco cessation medications. Depression Screening: Perform PHQ-2 A PHQ-2 screen was performed. The score was 0 which is a negative screen for depression. Over the past two weeks, how often have you been bothered by the following problems? 1. Little interest or pleasure in doing things Not at all 2. Feeling down, depressed, or hopeless Not at all Suicide Screen: C-SSRS Screening [place] Suicide Severity Rating Scale (C-SSRS) screener 1. Over the past month, have you wished you were or wished you could go to sleep and not wake up? No 2. Over the past month, have you had any actual thoughts of killing yourself? No 3. Over the past month, have you been thinking about how you might do this? Response not required due to responses to other questions. 4. Over the past month, have you had these thoughts and had some intention of acting on them? Response not required due to responses to other questions. 5. Over the past month, have you started to work out or worked out the details of how to kill yourself? Response not required due to responses to other questions. 6. If yes, at any time in the past month did you intend to carry out this plan? Response not required due to responses to other questions. 7. In your lifetime, have you ever done anything, started to do anything, or prepared to do anything to end your life (for example, collected pills, obtained a gun, gave away valuables, went to the roof but didn't jump)? No 8. If YES, was this within the past 3 months? Response not required due to responses to other questions. PTSD Screening: PC-PTSD-5 A PTSD screening test (PC-PTSD-5) was negative (score=0). IN THE PAST MONTH, have you ever had any experience that was so frightening, horrible or traumatic. For example: A serious accident or fire a physical or sexual assault or abuse An earthquake or flood A war Seeing someone be killed or seriously injured Having a loved one through homicide or suicide 1. Have you ever experienced this kind of event? NO 2. Had nightmares about the event(s) or thought about the event(s) when you did not want to? Response not required due to responses to other questions. 3. Tried hard not to think about the event(s) or went out of your way to avoid situations that reminded you of the event(s)? Response not required due to responses to other questions. 4. Been constantly on guard, watchful, or easily startled? Response not required due to responses to other questions. 5. [place] numb or detached from people, activities, or your surroundings? Response not required due to responses to other questions. 6. [place] guilty or unable to stop blaming yourself or others for the event(s) or any problems the event(s) may have caused? Response not required due to responses to other questions. MST Screening: Patient denies experiencing sexual trauma (MST). 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 [place] has no concerns about toxic exposure(s) while serving in the Armed Forces. The /caregiver was informed that we will continue to ask this screening question every 5 years. They can contact their provider/healthcare team if they have concerns about exposures and would like to be screened sooner. Printed information was offered and provided if desired. Sexual Orientation: The patient thinks of their sexual orientation as: Straight or Heterosexual ADL/IADL Functional Measures(V9): Incontinence Screen: Within the past 12 months, has the patient had any characteristics of incontinence (ability, voiding, leakage, etc.)? YES - Incontinence is a problem for this patient. Is urinary incontinence NEW for this patient? YES - Incontinence is a new problem. How would you rate your incontinence? Severe Falls Screen: Patient reported falls within the past 12 months. Patient reported 2 or more falls in the past 12 months. Dementia Warning Signs: Please indicate below whether the patient or caregiver report any warning signs of Dementia? No warning signs of dementia noted. Jerome Index of [place] in Activities of Daily Living: JEROME INDEX FOR ADL ASSESSMENT: JEROME Index of [place] in Activities of Daily Living was completed at this encounter. BATHING: Patient needs supervision, direction or personal assistance with bathing. DRESSING: Patient needs supervision, direction or personal assistance with dressing. TOILETING: Patient needs supervision, direction or personal assistance with toileting. TRANSFERRING: Patient needs supervision, direction or personal assistance with transferring. CONTINENCE: Patient needs supervision, direction or personal assistance with bowel continence. FEEDING: Patient needs no supervision, direction or personal assistance with feeding/eating. ENTER TOTAL SCORE BELOW: TOTAL POINTS: = [ 1 ] NOTE: 2-0 = SEVERE FUNCTIONAL IMPAIRMENT (patient very dependent) INSTRUMENTAL ACTIVITIES OF DAILY LIVING (IADL) SCALE (Callie) Telephone: 1 point - Looks up numbers, dials, receives and makes calls without help Shoppin points - Needs to be accompanied on any shopping trip Food preparation: 0 points - Needs to have meals prepared and served Housekeepin points - Does not participate in any housekeeping tasks Laundry: 0 points - Unable to do any laundry. Mode of transportation: 0 points - Travel limited to taxi or automobile with assistance of another Responsibility for own medications: 0 points - Takes responsibility if medication is prepared in advance in separate dosages Ability to handle finances: 0 points - Incapable of handling money SCORING: The total score may range from 0 - 8. A lower score indicates a higher level of dependence. Total score: 1 dottie /rosette/ Megan Farley LPN LICENSED PRACTICAL NURSE Signed: 02/06/2024 10:03 MEGAN FARLEY [facility] Feb 06, 2024 09:58 AM PRIMARY CARE NURSI NG NOTE: LOCAL TITLE: [employer] [facility] Tech/stephani Note STANDARD TITLE: PRIMARY CARE NURSING NOTE DATE OF NOTE: FEB 06, 2024@09:58 ENTRY DATE: FEB 06, 2024@09:58:11 AUTHOR: MEGAN FARLEY EXP COSIGNER: URGENCY: STATUS: COMPLETED [employer] [facility] Tech/stephani Note Has ADDENDA The patient was given a list of his current medications, instructed to review and discuss any changes or problems with their provider. Patient advised to carry a list of current medications and any allergies with them in the event of emergency situations. Yes - [place]/Caregiver verbalized understanding of topics discussed and education provided Provider notified of elevated B/P >/= 140/90. Yes Alcohol Use Screen (AUDIT-C): Alcohol Screen: SCREEN FOR ALCOHOL (AUDIT-C) An alcohol screening test (AUDIT-C) was negative (score=0). 1. How often did you have a drink containing alcohol in the past year? Consider a drink to be a 12 ounce can or bottle of regular beer, 8 ounces of malt liquor, a 5 ounce glass of table wine, or a 1.5 ounce shot of liquor (like scotch, gin, or vodka). Never 2. How many drinks containing alcohol did you have on a typical day when you were drinking in the past year? Response not required due to responses to other questions. 3. How often did you have six or more drinks on one occasion in the past year? Response not required due to responses to other questions. Tobacco Use Screening: The patient uses tobacco but not every day. The patient does not use tobacco within 30 minutes of waking up. The patient has been smoking or using tobacco for thirty years or more. Patient was advised to quit smoking and/or using tobacco. Discussion with patient included: - Quitting smoking or tobacco use is one of the most important things you can do to protect and improve your health and [place] has the resources to support you. - Set a quit date when you are ready to quit. - Get support from your family and friends. - Review any past quit attempts- What helped? What didn't? - On the day you plan to quit, get rid of all cigarettes and tobacco products from your home, car or work. - Using a combination of behavioral counseling or other support strategies and FDA-approved cessation medications is the most effective way to ensure success in quitting. Patient was offered Behavioral Counseling and other support strategies to assist with quitting. Discussion with patient included: - Behavioral counseling or other support strategies greatly increases your chances of successfully quitting smoking or tobacco use by helping you develop a quit plan and providing support and other strategies to make behavioral changes to help you quit. - [place] has a number of behavioral counseling options to help you with quitting, including: * Provide information about the facility smoking or tobacco use treatment options or clinics * [place]'s national quitline, 3-895-AEEL-VET, with counseling available Friday-Friday The patient was not interested in receiving additional information about how to use the treatment options discussed. Patient was offered FDA-approved cessation medications. Discussion with patient included: - Medications for Nicotine replacement therapy such as the patch, gum or lozenge, and other medications such as varenicline or bupropion, can play an important role in the initial weeks and months after you quit smoking or tobacco use. - Medications help with cravings and withdrawal symptoms and they greatly increase your chances of successfully quitting. The patient was not interested in a prescription for tobacco cessation medications. Depression Screening: Perform PHQ-2 A PHQ-2 screen was performed. The score was 0 which is a negative screen for depression. Over the past two weeks, how often have you been bothered by the following problems? 1. Little interest or pleasure in doing things Not at all 2. Feeling down, depressed, or hopeless Not at all Suicide Screen: C-SSRS Screening [place] Suicide Severity Rating Scale (C-SSRS) screener 1. Over the past month, have you wished you were or wished you could go to sleep and not wake up? No 2. Over the past month, have you had any actual thoughts of killing yourself? No 3. Over the past month, have you been thinking about how you might do this? Response not required due to responses to other questions. 4. Over the past month, have you had these thoughts and had some intention of acting on them? Response not required due to responses to other questions. 5. Over the past month, have you started to work out or worked out the details of how to kill yourself? Response not required due to responses to other questions. 6. If yes, at any time in the past month did you intend to carry out this plan? Response not required due to responses to other questions. 7. In your lifetime, have you ever done anything, started to do anything, or prepared to do anything to end your life (for example, collected pills, obtained a gun, gave away valuables, went to the roof but didn't jump)? No 8. If YES, was this within the past 3 months? Response not required due to responses to other questions. PTSD Screening: PC-PTSD-5 A PTSD screening test (PC-PTSD-5) was negative (score=0). IN THE PAST MONTH, have you ever had any experience that was so frightening, horrible or traumatic. For example: A serious accident or fire a physical or sexual assault or abuse An earthquake or flood A war Seeing someone be killed or seriously injured Having a loved one through homicide or suicide 1. Have you ever experienced this kind of event? NO 2. Had nightmares about the event(s) or thought about the event(s) when you did not want to? Response not required due to responses to other questions. 3. Tried hard not to think about the event(s) or went out of your way to avoid situations that reminded you of the event(s)? Response not required due to responses to other questions. 4. Been constantly on guard, watchful, or easily startled? Response not required due to responses to other questions. 5. [place] numb or detached from people, activities, or your surroundings? Response not required due to responses to other questions. 6. [place] guilty or unable to stop blaming yourself or others for the event(s) or any problems the event(s) may have caused? Response not required due to responses to other questions. MST Screening: Patient denies experiencing sexual trauma (MST). 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 The [place]/caregiver was informed that we will continue to ask this screening question every 5 years. They can contact their provider/healthcare team if they have concerns about exposures and would like to be screened sooner. Printed information was offered and provided if desired. Sexual Orientation: The patient thinks of their sexual orientation as: Straight or Heterosexual ADL/IADL Functional Measures(V9): Incontinence Screen: Within the past 12 months, has the patient had any characteristics of incontinence (ability, voiding, leakage, etc.)? YES - Incontinence is a problem for this patient. Is urinary incontinence NEW for this patient? YES - Incontinence is a new problem. How would you rate your incontinence? Severe Falls Screen: Patient reported falls within the past 12 months. Patient reported 2 or more falls in the past 12 months. Dementia Warning Signs: Please indicate below whether the patient or caregiver report any warning signs of Dementia? No warning signs of dementia noted. Jerome Index of [place] in Activities of Daily Living: JEROME INDEX FOR ADL ASSESSMENT: JEROME Index of [place] in Activities of Daily Living was completed at this encounter. BATHING: Patient needs supervision, direction or personal assistance with bathing. DRESSING: Patient needs supervision, direction or personal assistance with dressing. TOILETING: Patient needs supervision, direction or personal assistance with toileting. TRANSFERRING: Patient needs supervision, direction or personal assistance with transferring. CONTINENCE: Patient needs supervision, direction or personal assistance with bowel continence. FEEDING: Patient needs no supervision, direction or personal assistance with feeding/eating. ENTER TOTAL SCORE BELOW: TOTAL POINTS: = [ 1 ] NOTE: 2-0 = SEVERE FUNCTIONAL IMPAIRMENT (patient very dependent) INSTRUMENTAL ACTIVITIES OF DAILY LIVING (IADL) SCALE (Callie) Telephone: 1 point - Looks up numbers, dials, receives and makes calls without help Shoppin points - Needs to be accompanied on any shopping trip Food preparation: 0 points - Needs to have meals prepared and served Housekeepin points - Does not participate in any housekeeping tasks Laundry: 0 points - Unable to do any laundry. Mode of transportation: 0 points - Travel limited to taxi or automobile with assistance of another Responsibility for own medications: 0 points - Takes responsibility if medication is prepared in advance in separate dosages Ability to handle finances: 0 points - Incapable of handling money SCORING: The total score may range from 0 - 8. A lower score indicates a higher level of dependence. Total score: 1 point /rosette/ Megan Farley LPN LICENSED PRACTICAL NURSE Signed: 02/06/2024 10:03 02/06/2024 ADDENDUM STATUS: COMPLETED BP recheck 144/76 /rosette/ Megan Farley LPN LICENSED PRACTICAL NURSE Signed: 02/06/2024 10:04 Receipt Acknowledged By: * AWAITING SIGNATURE * BUCK HUNT BRANDIE D [facility] Feb 06, 2024 08:02 AM CONSULT: LOCAL TITLE: PC NEW PATIENT CONSULT RESPONSE STANDARD TITLE: CONSULT DATE OF NOTE: FEB 06, 2024@08:02 ENTRY DATE: FEB 06, 2024@08:02:20 AUTHOR: BUCK HUNT EXP COSIGNER: URGENCY: STATUS: COMPLETED CC: 78 year old to be seen in primary care clinic today as a new patient. HPI: Pleasant 78-year-old arrived in a wheelchair accompanied by his . He [place] care with the [place] due to his disability with his multiple sclerosis and now he has a right lower extremity fracture that impedes his movement. His is requesting home-based primary care due to his immobility and generalized weakness. He also has macular degeneration. He is followed by an outside urologist for his prostate cancer. He is followed by an outside neurologist for his MS. Has an outside primary care doctor Dr. Nick Dale in [facility]. I will get routine labs today and order pull- ups, under pads and gloves to help with his incontinence issues at home. I will order home-based primary care consult to see if he is a candidate for that. And he will see social work after this to see if they can get home health aides to come and help and possibly respite care. Problem List - Active - multiple sclerosis RLE fibula fracture macular degeneration HTN HLD Prostate cancer DM2 incontinence of bowel and bladder R knee pain (degenerative joint disease) Service Connected Disabilities: RATED DISABILITIES - NONE FOUND ALLERGIES: NKDA PSH: TURP x 2-3, appendectomy as child, L TKA, golden cataract extraction Personal Hx:[employer] for 2 years smoke: quit 10 years ago, 1ppd x 40 years alcohol: none drugs: none Work:retired from [employer] MARITAL STATUS - , 2 children FH: mom age 75 macular degeneration, DM2, HTN, HLD; dad age 78, CAD, [place], DM2, gangrene, sister living 73. colonoscopy: colon polyps in past. MEDS: Active Outpatient Medications (including Supplies): bisoprolol fumarate 5 mg daily Atorvastatin 20 mg 1 daily Gabapentin 100 mg 4 times a day Metformin ER 500 mg 1 a day Famotidine 20 mg as needed or 2/day Ocrevus infusion every 6 months for MS Eligard shots every 6 months for prostate cancer Silodosin 8 mg daily Methenam 1 g twice a day prevention of UTI Baby aspirin 81 mg 1 a day Vitamin D3 2000 international unit 2/day Vitamin B12 1000 mcg 1/day Vitamin D 400 International unit 1/day PreserVision 2/day Psyllium fiber capsule 1 a day MiraLAX 2 tablespoons/day ROS: Constitutional-obese Eyes-macular degeneration ENT/Mouth-neg CV-hypertension, hyperlipidemia, diabetes Respiratory- neg GI-incontinence -prostate cancer, incontinence Musculoskeletal-generalized weakness, right lower extremity fracture Skin/breast- neg Neuro-MS Psych- neg Endocrine- neg Hem/Lymph- neg Physical Exam: Temperature 97.2 F [36.2 C] (02/06/2024 09:58) Pulse 66 (02/06/2024 09:58) Respiration 12 (02/06/2024 09:58) B/P 144/76 (02/06/2024 10:04) Height 69 in [175.3 cm] (02/06/2024 09:58) Weight 251 lb [113.85 kg] (02/06/2024 09:58) Pain 0 (02/06/2024 09:58) Pleasant, neat appearing, alert and oriented. No acute distress. Obese Eyes: nl conjunctivae and lids; PERRLA ENT: no preauricular or tragal tenderness, R TM good light reflex w/o bulging, retraction or effusion, L TM good light reflex, no effusion, injection. Hearing: Hard of hearing, nasal mucosa, septum and turbinates- ok, Lips, teeth, gums- normal. OP- neg. facial swelling noted. NECK: supple, nl thyroid; no lymphadenopathy. RESP: normal respiratory effort; CTA bilaterally. no adventitious sounds. CV: nl- RRR, no murmurs/rubs/gallops, S1, S2, carotids +2 and equal, no bruits. GI: no masses or tenderness; liver and spleen-nl, no hernia. MS: Generalized weakness uses a wheelchair, right lower extremity fracture. no joint swelling. Painful range of motion of right knee SKIN: nl inspection and palpation of skin and subcutaneous tissue. NEUROLOGY: cranial nerves 2-12 grossly intact, reflexes knees 2+ and symmetrical, ankles 2+ and symmetrical. Sensation- nl. EXTREMITIES: Bilateral lower extremities 2+ edema no clubbing no cyanosis. PSYCH: good judgement and insight, oriented to person place and time, memory OK, mood and affect appropriate. ASSESSMENT AND PLAN: Multiple Sclerosis-keep follow-up with neurology Macular degeneration-keep follow-up with ophthalmology Right fibula fracture-keep follow-up with orthopedic Incontinence of bowel and bladder-ordered depends, under pads and gloves Type 2 diabetes-continue current medications Hypertension-continue current medications Hyperlipidemia-continue current medications Prostate cancer-keep follow-up with urology Right knee pain-keep follow-up with orthopedics, [facility] [place] [facility] if the gives me a call back with that request. Currently he is being followed by an outside orthopedic. I spent 90 minutes reviewing the chart, interviewing the patient, examining the patient, entering medications, entering history, charting and CPRS, and entering orders. The outpatient essential medication list for review (EMLR) was reviewed with the patient. Both VA and non VA medications reviewed. no discrepancy noted. Patient was provided a printed corrected/reconciled med list. Reviewed lab results with the . expressed understanding of topics discussed and education provided today. RTC: Hepatitis C Testing: Patient has given verbal consent for HCV antibody testing. An HCV lab test has been ordered - see orders tab. Homelessness/Food Insecurity Screen: In the past 2 months, have you been living in stable housing that you own, rent, or stay in as part of a household? Yes - Living in stable housing. Are you worried or concerned that in the next 2 months you may NOT have stable housing that you own, rent, or stay in as part of a household? No - Not worried about housing near future The reports the following: Within the past 12 months, you worried whether your food would run out before you got money to buy more. Never true Within the past 12 months, the food you bought just didn't last and you didn't have money to get more. Never true Influenza Immunization: The patient has received the seasonal influenza vaccine for the current season at another location. Documented: INFLUENZA, UNSPECIFIED FORMULATION Historical Date Administered: Jan 05, 2024 Outside Location: Home Information Source: FROM PATIENT'S WRITTEN RECORD COVID-19 Immunization: Vaccine given previously - no written/electronic documentation available Comment: 01-10-2024, given at health department Cigarette Pack Year History: The patient previously used cigarettes and quit smoking less than 15 years ago. Year the patient quit smoking: Date: December 28, 2013 How many years have you smoked cigarettes? # of years: 40 Average number of packs/day over the entire time patient smoked: Packs/day: /es/ BUCK HUNT APRN Signed: 02/06/2024 11:40 BUCK HUNT [facility]
--- OUTSIDE RECORDS SUMMARY | 2024-07-08 08:53 | XMS_ITS | Encounter Summary ---
Author Name [place] Address [address] [place] [address] Care Team Providers Care Remote Sensing Scientist Name Role Phone YULISSA HENDERSON Primary Care [...] PLAN F Mar 24, 2014 PLAN F [id number] [phone] LUIS MANUEL PERDOMO PATIENT [facility] [place] BLUECARD PREFERRED PROVIDER ORGANIZAT ION (PPO) [facility] Sep 21, 2012 [id number] LUIS MANUEL PERDOMO PATIENT [employer] S[employer] ([id number]) PRESCRIPT ION WL3A Sep 21, 2012 [id number] [id number] LUIS MANUEL PERDOMO PATIENT MEDICARE (WNR) MEDICARE (M) PART B Sep 21, 2012 PART B [id number] NOEMI PERDOMO PATIENT MEDICARE (WNR) MEDICARE (M) PART A Jan 22, 2011 PART A [id number] [id number] NOEMI PERDOMO PATIENT MEDICARE PART D (WNR) MEDICARE (M) PART D Mar 24, 2014 PART D [id number] LUIS MANUEL PERDOMO PATIENT Selected Encounter This section includes the information on record at [place] for the Encounter. Date/Time Encounter Type Encounter Description Reason Provider Source Jun 07, 2024 12:30 PM HLTH [facility] IVNTJ INDIV [facility] - GASOLINE POWER SHOVEL OPERATOR ICD-10-CM Z65.9 Problem related to unspecified psychosocial circumstances [place] [facility] IHE Encounter Template Text not used by [place] Assessments - Encounter Diagnoses This section includes the primary and secondary diagnoses documented for the Encounter. Date/Time Primary/Secondary Diagnosis Diagnosis Name Provider Source Jun 08, 2024 02:54 PM PRIMARY Problem related to unspecified psychosocial circumstances [facility] Plan of Treatment: Future Appointments (+ 6 months) and Future Tests (+/- 45 days) The Plan of Treatment section includes future care activities for the patient from all [place] treatmentfacilities. This section includes future appointments and future orders which are active, pending or scheduled. Future Appointments This section includes appointments that were scheduled to occur 6 months from the date of the Encounter, up to a maximum of 20 appointments. The data comes from all [place] treatment facilities. Appointment Date/Time Appointment Type Appointme nt Facility Name August 19, 2024 01:20 PM AMBULATORY - SURGERY [facility] Active, Pending, and Scheduled Orders This section includes a listing of several types of active, pending, and scheduled orders, including clinic medications orders, diagnostic test orders, procedure orders and consult orders; where the start date of the order is 45 days before the date of the Encounter or 45 days after the date of theEncounter. The data comes from all [place] treatment facilities. Test Date/Time Test Type Test Details Facility Name Jun 08, 2024 11:04 AM Consult Order ORTHO KNEE OUTPATIENT Cons Counterperson's Choice [facility] Lab Results: +/- 30 days of the encounter This section includes the Chemistry and Hematology Lab Results on record with [place] for the patient. Radiology Reports and Pathology Reports are provided separately, in subsequent sections. Lab Results This section contains the Chemistry/Hematology Results that were resulted 30 days before or 30 daysafter the date of the Encounter. Date/Time Source Result Type Result - Unit Interpretation Reference Range Specimen Type Comment May 25, 2024 11:30 AM [facility] N IRON/TIBC PLASMA Specimen Type: PLASMA No comment entered. Ordering Provider: YULISSA HENDERSON Report Released Date/Time: Apr 22, 2024 08:13 AM Reporting Lab: [address] [address] Performing Lab: [address] [address] IRON 53 ug/dL L 65-175 TIBC 233 mg/dL L 250-425 IRON SATURATION 23 20-50 May 25, 2024 11:30 AM [facility] FERRITIN PLASMA Specimen Type: PLASMA No comment entered. Ordering Provider: YULISSA HENDERSON Report Released Date/Time: Apr 22, 2024 08:13 AM Reporting Lab: [address] [address] Performing Lab: [address] [address] FERRITIN 141.1 ng/mL 21.8-274.7 May 25, 2024 11:30 AM [facility] CBC/PLT BLOOD Specimen Type: BLOOD No comment entered. Ordering Provider: YULISSA HENDERSON Report Released Date/Time: Apr 22, 2024 08:13 AM Reporting Lab: [address] [address] Performing Lab: [address] [address] WBC 9.6 10*3/uL 5.0-10.0 RBC 4.00 10*6/uL [...] ALL of a patient's completed or amended [place] Advance and Rescinded Directives. The entries below indicate that a directive exists for the patient, but an actual copy is not included with this document. The data comes from all [place] facilities. Date Advance Directives Provider Source Mar 08, 2024 ADVANCE DIRECTIVE DISCUSSION RUBIN HILL [facility] Radiology Reports: +/- 30 days [...] the Encounter. The data comes from all [place] treatment facilities. Date/Time Radiology Report Provider Source May 31, 2024 10:53 AM ORTHO [id number],SUN,TUNL,W/B OTH AP STANDING: LUIS MANUEL PERDOMO [id number] -[id number] M Exm Date: MAY 31, 2024@10:53 Req Phys: YULISSA HENDERSON Loc: [facility] DRAWING IN MACHINE TENDER VST (Req'g Loc) Img Loc: [facility] RADIOLOGY Service: [place] [address] (Case [id number] COMPLETE) ORTHO [id number],SUN,TUNL,W/B (RAD Detailed) CPT:95748 Reason for Study: chronic pain right knee Clinical History: patient reports outside xrays show bone on bone Report Status: Verified Date Reported: JUN 01, 2024 Date Verified: JUN 01, 2024 Air Drier Machine Operator E-Sig: Report: ORTHO [id number],SUN,TUNL,W/B OTH AP STANDING, 05/31/2024 11:07 AM EDT INDICATION: chronic pain right knee COMPARISON: None Impression: Right knee: No acute fracture or malalignment. Moderate tricompartmental degenerative change. Small inferior patellar pole enthesophyte. Vascular calcifications. 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 Primary Diagnostic Code: NO ALERT REQUIRED Primary Interpreting Staff: PINKY OBRIEN, Staff Physician Verified by operations supervisor chemical cleaning for PINKY OBRIEN /PINKY [facility] Encounter Notes: All associated encounter notes This section contains the clinical notes associated to the Encounter. Date/Time Encounter Note(s) Provider Source Jun 07, 2024 12:30 PM [facility] NOTE: LOCAL TITLE: [facility] SOCIAL WORK PROGRESS STANDARD TITLE: [facility] NOTE DATE OF NOTE: JUN 07, 2024@12:30 ENTRY DATE: JUN 08, 2024@14:16:48 AUTHOR: JOSHUA HILL COSIGNER: URGENCY: STATUS: COMPLETED DATE: May TIME: Start: 12:30 Stop: 1:15 PRESENTING PROBLEM: Problems related to other psychosocial circumstance ASSESSMENT: Brandie is a 79-year-old white male who resides with his in [place], [place]. Brandie currently does not have advance directive on file. It was discussed during the initial assessment and information was given to complete if they should like to complete with two witnesses or with a notary. Discussed again today. still had the paperwork. Encouraged them to complete the paperwork and give a copy to be placed in his file. They agreed to work towards this. Brandie's long-term care plan is to remain home unless his becomes unable to care for him at home. Brandie is not service connected and is not eligible for a [place] Contract Placement. Brandie was oriented x3 and was dressed appropriately and well groomed. He was attentive and gave appropriate eye contact. His emotions were calm. He was welcoming and friendly to this manager social media. Speech was WNL. Affect was stable with full range, with neutral presentation and reported his mood as Good. Wharton reported his sleep has improved. Appetite has not changed. He was coherent, logical and goal directed. He has good insight. Wharton denied symptoms of depression and anxiety. denied si/hi/psychosis. Wharton said he would like power chair to help him go outside. Brandie [place] a ramp provided by the [place] and this would allow him more access. I would like very much to go outside on nice days. This manager social media will seek guidance from the team on how to access this for him. reported they did a MEANS test but are not sure of the results. This manager social media will look into this and let them know. Brandie has a knot on his jawline and is going to the doctor concerning this soon. he reported it is causing him hearing issues. He also asked about results for his knee x-ray. Will contact [facility] to address this. He said he currently has PT for his knee. This manager social media supported Wharton and his with empathy, reflective listening and validation of feelings/concerns. They have asked for a follow up visit in 3 months, unless needed sooner. They have contact information in order to contact this manager social media if needed. Thanked Wharton for his service. Patient Identifiers: Date of , Full social security number, Name , Facial recognition MENTAL STATUS ASSESSMENT: Orientation: x3 Attentiveness: Attentive Position: Sitting, Standing Posture: Comfortable Eye Contact: Appropriate Manner: Cooperative Features: None Physical: Pump on right jawline Emotional: Calm Motor: walked with walker Movements: none Gait: able to walk with walker Catatonia: none SPEECH: Rate: Normal Rhythm: Normal Volume: Normal Amount: Normal Articulation: Clear AFFECT: Stability: Stable Range: Full Presentation: Neutral Mood Report: Normal THOUGHT CONTENT: Suicide: Denied thoughts, plans and intentions Homicide: Denied thoughts, plans, and intentions Dep. Cog: Denied all Sleep: Improved Appetite: No change Weight: No change Libido: Not addressed Concentration: No change OCD: None THOUGHT PROCESS: Coherent: Coherent Logic: Logical Stream: Goal Directed Memory: Remote Impaired, Recent Impaired THOUGHT PERCEPTION: Hallucinations: Denied Delusions: Denied Other: None Intellect: Average Insight: Fair Judgment: Fair PAIN: Level: 8 Pain Assessment: 8 Location: knee Treatment/Alleviates: Pain is not constant and does not take anything at this time. RECENT FALLS: No NEW/CHANGE MEDICATIONS: Yes, specify and report to IDT: See [facility] note C-SSRS Screening Edison-Suicide Severity Rating Scale (C-SSRS Screener) 1. Over the past month, have you [...] required due to responses to other questions. PLAN: Social Work will provide services per care plan, doctor's orders, as needed or as requested. Wharton and requested next visit in 3 months, unless needed sooner. No social work reminders due currently. PT: is asking about getting a power wheelchair. Can you assist? BUTTER PRODUCTION SUPERVISOR: is asking about results of his knee x-ray. Also, he is still concerned about the knot on his face/jawline. /es/ JOSHUA HILL Signed: 06/08/2024 14:56 Receipt Acknowledged By: 06/10/2024 15:10 /es/ SRINIVAS HUFFMAN PT, DPT PHYSICAL THERAPIST, [facility] 06/08/2024 15:11 /es/ YULISSA HENDERSON APRN ADVANCED PRACTICE REGISTERED NURSE, [facility] JOSHUA HILL-MALKA [facility]
--- OUTSIDE RECORDS SUMMARY | 2024-07-08 08:53 | XMS_ITS | Encounter Summary ---
Author Name [place] Address [address] [place] [address] Care Team Providers Care Chlorine Cells Operator Name Role Phone YULISSA HENDERSON Primary [...] PLAN F Mar 24, 2014 PLAN F [id number] [phone] LUIS MANUEL PERDOMO PATIENT [facility] [place] BLUECARD PREFERRED PROVIDER ORGANIZAT ION (PPO) [facility] Sep 21, 2012 [id number] LUIS MANUEL PERDOMO PATIENT [employer] ([id number]) PRESCRIPT ION WL3A Sep 21, 2012 WL3A [id number] LUIS MANUEL PERDOMO PATIENT MEDICARE (WNR) MEDICARE (M) PART B Sep 21, 2012 PART B [id number] NOEMI PERDOMO PATIENT MEDICARE (WNR) MEDICARE (M) PART A Jan 22, 2011 PART A [id number] [phone] NOEMI PERDOMO PATIENT MEDICARE PART D (WNR) MEDICARE (M) PART D Mar 24, 2014 PART D [id number] LUIS MANUEL PERDOMO PATIENT Selected Encounter This section includes the information on record at [place] for the Encounter. Date/Time Encounter Type Encounter Description Reason Pro vider Source Dec 16, 2023 02:53 PM Outpatient Encounter ADMIN PAT ACTIVTIES (MASNONCT) IHE Encounter Template Text not used by [place] Plan of Treatment: Future Appointments (+ 6 months) and Future Tests (+/- 45 days) The Plan of Treatment section includes future care activities for the patient from all [place] treatmentfacilities. This section includes future appointments and future orders which are active, pending or scheduled. Future Appointments This section includes appointments that were scheduled to occur 6 months from the date of the Encounter, up to a maximum of 20 appointments. The data comes from all [place] treatment facilities. Appointment Date/Time Appointment Type Appointme nt Facility Name Feb 06, 2024 10:00 AM AMBULATORY - MEDICINE [facility] Mar 11, 2024 08:00 AM [facility] May 05, 2024 08:00 AM AMBULATORY - NONE [facility] Advance Directives: All historical and current Section Date Range: From patient's date of to the date document was created. This section includes ALL of a patient's completed or amended [place] Advance and Rescinded Directives. The entries below indicate that a directive exists for the patient, but an actual copy is not included with this document. The data comes from all [place] facilities. Date Advance Directives Provider Source Mar 08, 2024 ADVANCE DIRECTIVE DISCUSSION [facility] Encounter Notes: All associated encounter notes This section contains the clinical notes associated to the Encounter. Date/Time Encounter Note(s) Provider Source Dec 16, 2023 02:53 PM ADMINISTRATIVE NOT E: LOCAL TITLE: HEALTH BENEFITS ADMINISTRATIVE NOTE STANDARD TITLE: ADMINISTRATIVE NOTE DATE OF NOTE: DEC 16, 2023@14:53 ENTRY DATE: DEC 16, 2023@14:54:01 AUTHOR: ELOINA HORNER EXP COSIGNER: URGENCY: STATUS: COMPLETED Eligible for enrollment: Yes [place] has been enrolled and assigned to priority group 5 HBA enrolled Nov /rosette/ ELOINA HORNER Signed: 12/16/2023 14:54 ELOINA HORNER-VUD [facility]
--- OUTSIDE RECORDS SUMMARY | 2024-07-08 08:53 | XMS_ITS | Encounter Summary ---
Author Name [place] Address [address] [place] [address] Care Team Providers Care Fountain Supervisor Name Role Phone YULISSA HENDERSON Primary [...] PLAN F Mar 24, 2014 PLAN F [id number] LUIS MANUEL PERDOMO PATIENT [facility] [place] BLUECARD PREFERRED PROVIDER ORGANIZAT ION (PPO) [facility] Sep 21, 2012 [id number] LUIS MANUEL PERDOMO PATIENT [employer] ([id number]) PRESCRIPT ION WL3A Sep 21, 2012 [id number] [id number] 19 LUIS MANUEL PERDOMO PATIENT MEDICARE (WNR) MEDICARE (M) PART B Sep 21, 2012 PART B [id number] NOEMI PERDOMO PATIENT MEDICARE (WNR) MEDICARE (M) PART A Jan 22, 2011 PART A [id number] [phone] NOEMI PERDOMO PATIENT MEDICARE PART D (WNR) MEDICARE (M) PART D Mar 24, 2014 PART D [id number] LUIS MANUEL PERDOMO PATIENT Selected Encounter This section includes the information on record at [place] for the Encounter. Date/Time Encounter Type Encounter Description Reason Provider Source Jun 10, 2024 03:52 PM PH1 ASSMT&MGMT NQHP 11-20 TELEPHONE [facility] ICD-10-CM G35 Multiple sclerosis ASHLIE HUFFMAN [facility] Encounter Template Text not used by [place] Assessments - Encounter Diagnoses This section includes the primary and secondary diagnoses documented for the Encounter. Date/Time Primary/Secondary Diagnosis Diagnosis Name Provider Source Jun 10, 2024 03:52 PM PRIMARY Multiple sclerosis [facility]INIVAS [facility] Plan of Treatment: Future Appointments (+ 6 months) and Future Tests (+/- 45 days) The Plan of Treatment section includes future care activities for the patient from all [place] treatmentfacilities. This section includes future appointments and future orders which are active, pending or scheduled. Future Appointments This section includes appointments that were scheduled to occur 6 months from the date of the Encounter, up to a maximum of 20 appointments. The data comes from all [place] treatment facilities. Appointment Date/Time Appointment Type Appointme nt Facility Name August 19, 2024 01:20 PM [facility] Active, Pending, and Scheduled Orders This section includes a listing of several types of active, pending, and scheduled orders, including clinic medications orders, diagnostic test orders, procedure orders and consult orders; where the start date of the order is 45 days before the date of the Encounter or 45 days after the date of theEncounter. The data comes from all [place] treatment facilities. Test Date/Time Test Type Test Details Facility Name Jun 08, 2024 11:04 AM Consult Order ORTHO KNEE OUTPATIENT Cons Gifted Program Teacher's Choice [facility] Lab Results: +/- 30 days of the encounter This section includes the Chemistry and Hematology Lab Results on record with [place] for the patient. Radiology Reports and Pathology Reports are provided separately, in subsequent sections. Lab Results This section contains the Chemistry/Hematology Results that were resulted 30 days before or 30 daysafter the date of the Encounter. Date/Time Source Result Type Result - Unit Interpretation Reference Range Specimen Type Comment May 25, 2024 11:30 AM [facility] N IRON/TIBC PLASMA Specimen Type: PLASMA No comment entered. Ordering Provider: YULISSA HENDERSON Report Released Date/Time: Apr 22, 2024 08:13 AM Reporting Lab: [address] [address] Performing Lab: [address] [address] IRON 53 ug/dL L 65-175 TIBC 233 mg/dL L 250-425 IRON SATURATION 23 20-50 May 25, 2024 11:30 AM [facility] FERRITIN PLASMA Specimen Type: PLASMA No comment entered. Ordering Provider: YULISSA HENDERSON Report Released Date/Time: Apr 22, 2024 08:13 AM Reporting Lab: [address] [address] Performing Lab: [address] [address] FERRITIN 141.1 ng/mL 21.8-274.7 May 25, 2024 11:30 AM [facility] CBC/PLT BLOOD Specimen Type: BLOOD No comment entered. Ordering Provider: YULISSA HENDERSON Report Released Date/Time: Apr 22, 2024 08:13 AM Reporting Lab: [address] [address] Performing Lab: [address] [address] WBC 9.6 10*3/uL 5.0-10.0 RBC 4.00 10*6/uL [...] ALL of a patient's completed or amended [place] Advance and Rescinded Directives. The entries below indicate that a directive exists for the patient, but an actual copy is not included with this document. The data comes from all [place] facilities. Date Advance Directives Provider Source Mar 08, 2024 ADVANCE DIRECTIVE DISCUSSION RUBIN HILL [facility] Radiology Reports: +/- 30 days [...] the Encounter. The data comes from all [place] treatment facilities. Date/Time Radiology Report Provider Source May 31, 2024 10:53 AM ORTHO [id number],SUN,TUNL,W/B OTH AP STANDING: LUIS MANUEL PERDOMO [id number] -1945 M Exm Date: MAY 31, 2024@10:53 Req Phys: YULISSA HENDERSON Loc: [facility] INFORMATION CLERK CASHIER HM VST (Req'g Loc) Img Loc: [facility] RADIOLOGY Service: [place] [address] (Case [id number] COMPLETE) ORTHO [id number],SUN,TUNL,W/B (RAD Detailed) CPT:97065 Reason for Study: chronic pain right knee Clinical History: patient reports outside xrays show bone on bone Report Status: Verified Date Reported: JUN 01, 2024 Date Verified: JUN 01, 2024 Cooler Conveyor Loader E-Sig: Report: ORTHO [id number],SUN,TUNL,W/B OTH AP STANDING, 05/31/2024 11:07 AM EDT INDICATION: chronic pain right knee COMPARISON: None Impression: Right knee: No acute fracture or malalignment. Moderate tricompartmental degenerative change. Small inferior patellar pole enthesophyte. Vascular calcifications. 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 Primary Diagnostic Code: NO ALERT REQUIRED Primary Interpreting Staff: PINKY OBRIEN, Staff Physician Verified by junior systems engineer for PINKY OBRIEN /JLPINKY [facility] Encounter Notes: All associated encounter notes This section contains the clinical notes associated to the Encounter. Date/Time Encounter Note(s) Provider Source Jun 10, 2024 03:52 PM TELEPHONE ENCOUNTE R NOTE: LOCAL TITLE: [facility] TELEPHONE NOTE STANDARD TITLE: TELEPHONE ENCOUNTER NOTE DATE OF NOTE: JUN 10, 2024@15:52 ENTRY DATE: JUN 10, 2024@15:53:02 AUTHOR: SRINIVAS HUFFMAN COSIGNER: URGENCY: STATUS: COMPLETED Time spent on phone call: 12 minutes SUBJECTIVE: spoke with and spouse about interest in power chair. Needs power chair to get around and mobility. especially outside of home. OBJECTIVE: TODAYS INTERVENTIONS Education: 1. SEATING & MOBILITY CLINIC: Discussed power mobility and the [place]'s Wheel[place] Seating & Mobility clinic. This specialty clinic is available and provides assessment and evaluation to determine if power mobility is indicated, and if so, what device is appropriate for . Provided [place] with phone numbers to clinic, . Advised to call and schedule appointment for assessment ASSESSMENT: Educated on seating and mobility clinic and its availability to assess for appropriate power mobility. INstructed Vet and spouse to call to schedule appt for assessment. Provided spouse with phone # to clinic. THey verbalized understanding to all. PLAN: Anticipate 0-1 follow up visits (face to face, VVC, telephone) this quarter if clinically indicated for any of the following: change in functional status or safety, post fall evaluation and education; evaluate equipment needs and educate [place] and/or caregiver on safe use. /rosette/ SRINIVAS HUFFMAN, PT, DPT PHYSICAL THERAPIST, [facility] Signed: 06/14/2024 09:35 SRINIVAS HUFFMAN-D [facility]
--- OUTSIDE RECORDS SUMMARY | 2024-07-08 08:53 | XMS_ITS ---
[place] MEDICAL NUTRITION INDIV IN [facility] Encounter Summary Created on: July 08, 2024 LUIS MANEUL PERDOMO : 1945 Sex: Male Author Name [facility] Organization [facility] Address [address] [place] [address] Care Team Providers Care Shuttle Spotter Name Role Phone YULISSA HENDERSON Primary Care [...] PLAN F Mar 24, 2014 PLAN F [id number] LUIS MANUEL PERDOMO PATIENT [facility] [place] [facility] PREFERRED PROVIDER ORGANIZAT ION (PPO) [facility] Sep 21, 2012 [id number] LUIS MANUEL PERDOMO PATIENT [employer] ([id number]) PRESCRIPT ION WL3A Sep 21, 2012 [id number] LUIS MANUEL PERDOMO PATIENT MEDICARE (WNR) MEDICARE (M) PART B Sep 21, 2012 PART B [id number] NOEMI PERDOMO PATIENT MEDICARE (WNR) MEDICARE (M) PART A Jan 22, 2011 PART A [id number] [phone] NOEMI PERDOMO PATIENT MEDICARE PART D (WNR) MEDICARE (M) PART D Mar 24, 2014 PART D [id number] LUIS MANUEL PERDOMO PATIENT Selected Encounter This section includes the information on record at [place] for the Encounter. Date/Time Encounter Type Encounter Description Reason Provider Source Mar 10, 2024 12:00 PM MEDICAL NUTRITION INDIV IN [facility] - DIETITIAN ICD-10-CM E66.09 Other obesity due to excess calories ANUEL SCHULZ IHStephen Encounter Template Text not used by [place] Assessments - Encounter Diagnoses This section includes the primary and secondary diagnoses documented for the Encounter. Date/Time Primary/Secondary Diagnosis Diagnosis Name Provider Source Mar 10, 2024 03:53 PM PRIMARY Other obesity due to excess calories ANUEL SCHULZ [facility] Mar 10, 2024 03:53 PM SECONDARY Body mass index [BMI] 37.0-37.9, adult ANUEL SCHULZ-CD Sav [facility] Mar 10, 2024 03:53 PM SECONDARY Dietary counseling and surveillance ANUEL SCHULZ-VU Ang [facility] Plan of Treatment: Future Appointments (+ 6 months) and Future Tests (+/- 45 days) The Plan of Treatment section includes future care activities for the patient from all [place] [facility]. This section includes future appointments and future orders which are active, pending or scheduled. Future Appointments This section includes appointments that were scheduled to occur 6 months from the date of the Encounter, up to a maximum of 20 appointments. The data comes from all [place] treatment facilities. Appointment Date/Time Appointment Type Appointme nt Facility Name Mar 11, 2024 08:00 AM [facility]ORY - NONE [place] [facility] May 05, 2024 08:00 AM AMBULATORY - NONE [place] [facility] August 19, 2024 01:20 PM AMBULATORY - SURGERY AAMIRIN MARIA EUGENIA-Sav [facility] Lab Results: +/- 30 days of the encounter This section includes the Chemistry and Hematology Lab Results on record with [place] for the patient. Radiology Reports and Pathology Reports are provided separately, in subsequent sections. Lab Results This section contains the Chemistry/Hematology Results that were resulted 30 days before or 30 daysafter the date of the Encounter. Date/Time Source Result Type Result - Unit Interpretation Reference Range Specimen Type Comment Feb 17, 2024 12:29 PM [facility] WN DRUG SCREEN EXPANDED IN-HOUSE URINE [...] Feb 06, 2024 03:45 PM Reporting Lab: [address] [address] Performing Lab: [place] [id number] TETRAHYDROCANNABINOL SCREEN NEG Cuto ff < 50 [...] Feb 17, 2024 12:29 PM [facility] MICROALBUMIN/CREAT RATIO URINE Specimen Type: URINE Comment: Unable to calculate ratio due to low Microalbumin result. Ordering Provider: BUCK HUNT Report Released Date/Time: Feb 06, 2024 03:45 PM Reporting Lab: [address] [address] Performing Lab: [address] [address] CREATININE 102.7 mg/dL MICROALBUMIN QUANT <5.0 mg/L 0.0-30.0 .MICROALBUMIN/CREA RATIO comment ug/mg{creat} Feb 17, 2024 12:15 PM [facility] PANEL 1 PLASMA Specimen Type: PLASM A [...] Feb 06, 2024 03:45 PM Reporting Lab: [address] [address] Performing Lab: [address] [address] CREATININE 0.87 mg/dL 0.72-1.25 UREA NITROGEN 13 mg/dL 9-25 GLUCOSE 119 mg/dL H 74-100 SODIUM 133 mmol/L L 136-145 POTASSIUM 4.4 mmol/L 3.5-5.1 CHLORIDE 100 mmol/L 98-107 CO2 23 mmol/L 22-29 CALCIUM 9.0 mg/dL 8.4-10.2 ANION GAP 10 meq/L 3-19 eGFR (CKD-EPI) 88 Advance Directives: All historical and current Section Date Range: From patient's date of to the date document was created. This section includes ALL of a patient's completed or amended [place] Advance and Rescinded Directives. The entries below indicate that a directive exists for the patient, but an actual copy is not included with this document. The data comes from all [place] facilities. Date Advance Directives Provider Source Mar 08, 2024 ADVANCE DIRECTIVE DISCUSSION [facility] Encounter Notes: All associated encounter notes This section contains the clinical notes associated to the Encounter. Date/Time Encounter Note(s) Provider Source Mar 10, 2024 12:00 PM [facility] NOTE: LOCAL TITLE: [facility] NUTRITION INITIAL/ANNUAL/PROGRESS STANDARD TITLE: [facility] NOTE DATE OF NOTE: MAR 10, 2024@12:00 ENTRY DATE: MAR 10, 2024@15:03:26 AUTHOR: ROSEMARIE SCHULZ EXP COSIGNER: URGENCY: STATUS: COMPLETED Two identifiers were verified: Name, Address Time with Patient: 60 minutes Age: 79 Gender: MALE Reason for visit: initial assessment Present at visit: Patient, [facility] RD [place]: No Service History: Service Branch Service # Entered Discharge [employer] [id number] JULY 25, 1964 JUL 07, 1966 HONORABLE Subjective Client History/Food & Nutrition-Related History: Patient has a good appetite. Eats 3 meals/day + snacks. Does try to avoid some concentrated sweets, does state he no longer has DMII. May be interested in weight loss. Not checking BG. Does have some trouble self feeding. Vision: Wears glasses Hearing: No issues noted on visit Mental Status/Orientation: No issues noted on visit Feeding Ability: feeds self w/ some difficulty w/ MS in L hand Adaptive Feeding Equipment: None Dentition: dentures Mouth Sores/Pain: No Chewing Problems: No Swallowing Problems: No Ambulation: walker Activity Level: Sedentary Access to groceries/meals: cooks, meal preps and shops Food Allergies/Intolerances: Patient has answered NKA Current Diet: Regular Oral Nutritional Supplements/OTC Vitamins/Minerals/Herbals/ Bioactive Substances: None Appetite: Good Pertinent Medical History: 1. Multiple sclerosis 2. Age related macular degeneration 3. Closed fracture of shaft of right fibula 4. Incontinence 5. Type 2 diabetes mellitus 6. Essential hypertension 7. Hyperlipidemia 8. Carcinoma of prostate 9. Pain of right knee joint Pertinent Medications: 1) BRIEF,TRANQ ALEX OVERNITE XL#2117 PULLUP USE 1 BRIEF ACTIVE (S) DIRECTED THREE TIMES A DAY Indication: FOR INCONTINENCE 2) GLOVE VINYL MEDIUM PWDR-FREE NONSTERILE USE GLOVE ACTIVE DIRECTED FOUR TIMES A DAY Indication: CLEANING 3) UNDERPAD,BED [id number] TRANQUILITY-2710 USE UNDERPAD ACTIVE DIRECTED THREE TIMES A DAY NEEDED Active Non-VA Medications Status 1) Non-VA ASPIRIN [...] Indication: FOR VITAMIN D SUPPLEMENT 6) Non-VA CYANOCOBALAMIN 1000MCG TAB 1000MCG MOUTH DAILY ACTIVE Indication: FOR VITAMIN B12 SUPPLEMENT 7) Non-VA FAMOTIDINE 20MG TAB 20MG MOUTH TWICE A DAY NEEDED ACTIVE Indication: FOR STOMACH 8) Non-VA GABAPENTIN TAB 100MG MOUTH FOUR TIMES A DAY ACTIVE Indication: FOR NERVE PAIN 9) Non-VA LEUPROLIDE (ELIGARD) 45MG(6 MONTH)LA INJ 45MG (1 ACTIVE DOSE) UNDER THE SKIN ONCE Indication: FOR PROSTATE CANCER 10) Non-VA METFORMIN HCL 500MG 24HR SA TAB 500MG MOUTH DAILY ACTIVE Indication: FOR BLOOD SUGAR 11) Non-VA METHENAMINE HIPPURATE 1GM TAB 1GM MOUTH TWICE A DAY ACTIVE Indication: FOR INFECTION 12) Non-VA OCRELIZUMAB INJ,SOLN INTO THE VEIN DIRECTED ACTIVE Indication: FOR MULTIPLE SCLEROSIS 13) Non-VA POLYETHYLENE GLYCOL 3350 ORAL PWDR 17 GRAMS (ONE ACTIVE CAPFUL FILLED TO LINE) IN LIQUID MOUTH DAILY Indication: FOR CONSTIPATION 14) Non-VA PRESERVISION AREDS VITAMIN 2 CAPSULES MOUTH DAILY ACTIVE Indication: UNKNOWN 15) Non-VA PSYLLIUM 520MG CAP 1 CAPSULE MOUTH DAILY ACTIVE Indication: UNKNOWN 16) Non-VA SILODOSIN 8MG ORAL CAP 8MG MOUTH DAILY ACTIVE Indication: FOR PROSTRATE 19 Total Medications Nutrition Assessment: Measurement DT WEIGHT LB(KG)[BMI] 03/04/2024 11:00 251(113.85)[37*] 02/06/2024 09:58 251(113.85)[37*] Height: 69 in [175.3 cm] (02/06/2024 09:58) BODY MASS INDEX - 37.1, Obesity, Grade 2 (BMI 35-39.9) IBW: 160# +/- 10% UBW: 185# a long time ago Weight change: Pt is unable to be weighed in the home as he does not have full use of L foot. Does report significant weight gain over an unknown period of time. Pertinent Labs: PANEL 1 Nanci. date GLUCOSE BUN CREAT SODIUM K CHLOR CO2 02/17/24 12:15 119 H 13 0.87 133 L 4.4 100 23 02/06/24 12:24 121 H 17 0.91 132 L 4.2 102 22 Albumin: 3.4 g/dL L (02/06/2024 12:24) Collection DT Specimen Test Name Result Units Ref Range 02/06/2024 12:24 BLOOD WBC 7.7 K/cmm 5.0 - 10.0 02/06/2024 12:24 BLOOD RBC 4.27 L M/cmm 4.6 - 6.2 02/06/2024 12:24 BLOOD HGB 12.2 L g/dL 14.0 - 18.0 02/06/2024 12:24 BLOOD HCT 37.5 L % 42.0 - 52.0 02/06/2024 12:24 BLOOD MCV 87.8 fL 80.0 - 94.0 02/06/2024 12:24 BLOOD MCH 28.6 pg 27.0 - 31.0 02/06/2024 12:24 BLOOD MCHC 32.5 g/dL 32.0 - 36.0 02/06/2024 12:24 BLOOD PLT 236 K/cmm 150 - 450 02/06/2024 12:24 BLOOD MPV 11.0 fL 9.0 - 13.1 02/06/2024 12:24 BLOOD RDW 14.0 % 11.0 - 16.0 02/06/2024 12:24 BLOOD NRBC 0.0 % 0.0 - 0.0 Collection DT Specimen Test Name Result Units Ref Range 02/17/2024 12:15 PLASMA!! eGFR (CKD-EPI) 88 SEE EVAL Collection DT Specimen Test Name Result Units Ref Range 02/06/2024 12:24 PLASMA!! B12 VITAMIN >2000 H pg/mL 213 - 816 Collection DT Specimen Test Name Result Units Ref Range 02/06/2024 12:24 SERUM !! 25-OH VITAMIN D 50.7 H ng/mL 20.0 - 50.0 Collection DT Specimen Test Name Result Units Ref Range 02/06/2024 12:24 PLASMA!! CHOLESTEROL 136 mg/dL 0 - 199 02/06/2024 12:24 PLASMA!! TRIGLYCERIDE 154 H mg/dL 0 - 149 02/06/2024 12:24 PLASMA!! HDL CHOLESTEROL 37 L mg/dL 40 - 69 02/06/2024 12:24 PLASMA!! DIRECT LDL CHOL. 87 mg/dL 0 - 100 Z GLYCOHEMOGLOBIN (HPLC) 02/06/24 12:24 6.4 Labs noted. 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 Urine: Not visualized Edema/Ascites: BLE edema present today L>R. Skin Integrity: small open area on his coccyx per RN note Gastrointestinal: No N/V/D or GERD. Meds managed w/ constipation. Having BMs every 2-3 days. 24-HOUR FOOD RECALL/TYPICAL INTAKE PATTERN: Breakfast: 2 plain donuts (not even glaze) + coffee, juice and water Lunch: [employer] chicken wings today but that was only because he is was in [place] yesterday. Usually soup, sandwich/chips or leftovers Dinner: Hot meal made by . Brianne is ham and biscuits. May also be chili or other homemade soup, tacos, casserole, meat/veg/starch meals. Snacks: Nabs, various fresh fruit Beverages: Per Day: 36oz water, 20oz Gatorade Zero, 10oz coffee, 4oz juice ETOH: None Risk of Foodborne Illness: mild Food/Drug Interactions: Statin: Does not consume grapefruit/juice ASSESSMENT/NUTRITION PROBLEM ETIOLOGY STATEMENT (PES): NUTRITION PROBLEM: Obesity ETIOLOGY: Excessive calorie intake, sedentary lifestyle SIGNS/SYMPTOMS: BMI 37 Therapeutic Diet Recommendations: Calorie Controlled/NCS/MICHELLE NUTRITION INTERVENTIONS: Nutrition education/counseling: Pt somewhat interested in discussing weight loss today. Discussed basic principles of weight control: sources of calories in diet, portion control, strategies for controlling calories and portions. Discussed NCS as it relates to BG control and tied to weight loss discussion as also high in calories. Encouraged limiting salt, discussed relationship to BLE edema. Discussed high sodium foods and lower sodium replacements. Patient expressed understanding of diet counseling provided. Printed material provided: None/Declined Barriers to learning: None Goals: Patient stated goal, will continue with adequate PO intake to maintain desired weight and nutritional status Patient stated goal, Weight will not increase above 25 lbs. IBW: 160 lbs. Monitor: PO intake of food and fluid Weights Coordination of Care: Ordered a rocker knife Follow-up: Provided contact information and encouraged patient and/or caregiver to call when visit desired. HB RD will continue to follow with team. Will review chart quarterly during interdisciplinary treatment plan reviews. Will do home visit at least yearly, more often if clinically indicated. Alerts/Referrals: None does not meet criteria for malnutrition. /rosette/ Rosemarie Schulz RD, LD Clinical Dietitian Signed: 03/10/2024 15:55 ROSEMARIE SCHULZ-MALKA [facility]
--- OUTSIDE RECORDS SUMMARY | 2024-07-08 08:53 | XMS_ITS | Encounter Summary ---
Author Name [facility] [facility] [place] [facility] [place] Address [address] [place] [id number] Care Team Providers Care Dub Room Engineer Name Role Phone YULISSA HENDERSON Primary Care [...] PLAN F Mar 24, 2014 PLAN F [phone] LUIS MANUEL PERDOMO PATIENT [facility] [place] [employer] PREFERRED PROVIDER ORGANIZAT ION (PPO) [facility] Sep 21, 2012 [id number] LUIS MANUEL PERDOMO PATIENT [employer] ([id number]) PRESCRIPT ION WL3A Sep 21, 2012 [id number] [id number] LUIS MANUEL PERDOMO PATIENT MEDICARE (WNR) MEDICARE (M) PART B Sep 21, 2012 PART B [id number] NOEMI PERDOMO PATIENT MEDICARE (WNR) MEDICARE (M) PART A Jan 22, 2011 PART A [id number] NOEMI PERDOMO PATIENT MEDICARE PART D (WNR) MEDICARE (M) PART D Mar 24, 2014 PART D [id number] LUIS MANUEL PERDOMO PATIENT Selected Encounter This section includes the information on record at [place] for the Encounter. Date/Time Encounter Type Encounter Description Reason Pro vider Source Feb 23, 2024 10:34 AM Outpatient Encounter ADMIN PAT ACTIVTIES (MASNONCT) IHE Encounter Template Text not used by [place] Plan of Treatment: Future Appointments (+ 6 [...] 2024 08:00 AM AMBULATORY - NONE [facility] May 05, 2024 08:00 AM AMBULATORY - NONE [facility] August 19, 2024 01:20 PM [facility] Lab Results: +/- 30 days of [...] Type Comment Feb 17, 2024 12:29 PM [facility] WN DRUG SCREEN EXPANDED IN-HOUSE URINE [...] Feb 06, 2024 03:45 PM Reporting Lab: [address] [address] Performing Lab: [place] [id number] TETRAHYDROCANNABINOL SCREEN NEG Cuto ff < 50 [...] < 1 Feb 17, 2024 12:29 PM [facility] MICROALBUMIN/CREAT RATIO URINE Specimen Type: URINE Comment: Unable to calculate ratio due to low Microalbumin result. Ordering Provider: BUCK HUNT Report Released Date/Time: Feb 06, 2024 03:45 PM Reporting Lab: [place] [id number] Performing Lab: [place] [id number] CREATININE 102.7 mg/dL MICROALBUMIN QUANT <5.0 mg/L 0.0-30.0 .MICROALBUMIN/CREA RATIO comment ug/mg{creat} Feb 17, 2024 12:15 PM [facility] PANEL 1 PLASMA Specimen Type: PLASM [...] Feb 06, 2024 03:45 PM Reporting Lab: [address] [address] Performing Lab: [address] [address] CREATININE 0.87 mg/dL 0.72-1.25 UREA NITROGEN 13 mg/dL 9-25 GLUCOSE 119 mg/dL H 74-100 SODIUM 133 mmol/L L 136-145 POTASSIUM 4.4 mmol/L 3.5-5.1 CHLORIDE 100 mmol/L 98-107 CO2 23 mmol/L 22-29 CALCIUM 9.0 mg/dL 8.4-10.2 ANION GAP 10 meq/L 3-19 eGFR (CKD-EPI) 88 Feb 06, 2024 12:24 PM [facility] CBC/PLT BLOOD Specimen Type: BLOOD No comment entered. Ordering Provider: BUCK HUNT Report Released Date/Time: Feb 06, 2024 10:44 AM Reporting Lab: [address] [address] Performing Lab: [address] [place] [address] WBC 7.7 10*3/uL 5.0-10.0 RBC 4.27 10*6/uL L 4.6-6.2 HGB 12.2 g/dL L 14.0-18.0 HCT 37.5 L 42.0-52.0 MCV 87.8 fL 80.0-94.0 MCH 28.6 pg 27.0-31.0 MCHC 32.5 g/dL 32.0-36.0 PLT 236 10*3/uL 150-450 MPV 11.0 fL 9.0-13.1 RDW 14.0 11.0-16.0 NRBC 0.0 0.0-0.0 Feb 06, 2024 12:24 PM [facility] PANEL 5 PLASMA Specimen Type: PLASM [...] Feb 06, 2024 10:44 AM Reporting Lab: [address] [address] Performing Lab: [address] [address] CREATININE 0.91 mg/dL 0.72-1.25 UREA NITROGEN 17 [...] (CKD-EPI) 87 Feb 06, 2024 12:24 PM [facility]-OH VITAMIN D SERUM Specime n Type: [...] Feb 06, 2024 10:44 AM Reporting Lab: [address] [address] Performing Lab: [address] [address] 25-OH VITAMIN D 50.7 ng/mL H 20.0-50.0 Feb 06, 2024 12:24 PM [facility] B12 VITAMIN PLASMA Specimen Type: PLASM [...] Feb 06, 2024 10:44 AM Reporting Lab: [place] [address] [address] Performing Lab: [place] [address] [address] B12 VITAMIN >2000 pg/mL H 213-816 Feb 06, 2024 12:24 PM [facility] TSH PLASMA Specimen Type: PLASM A [...] Feb 06, 2024 10:44 AM Reporting Lab: [place] [id number] [facility] [address] Performing Lab: [address] [address] TSH 0.6365 m[IU]/mL 0.3500-4.9400 Feb 06, 2024 12:24 PM [facility] LIPID PROFILE PLASMA Specimen Type: PLASM [...] Feb 06, 2024 10:44 AM Reporting Lab: [address] [address] Performing Lab: [address] [address] CHOLESTEROL 136 mg/dL 0-199 TRIGLYCERIDE 154 mg/dL H 0-149 HDL CHOLESTEROL 37 mg/dL L 40-69 DIRECT LDL CHOL. 87 mg/dL 0-100 Feb 06, 2024 12:24 PM [facility] GLYCOHEMOGLOBIN BLOOD Specimen Type: BLOOD Comment: [place] guidelines for A1c interpretation: Glycemic control targets are based on Shared Decision Making between clinicians and patients. Criteria used to establish an A1c target recommendation can be found at https://www.wi.gov/qualityandpatientsafety/ and include the use of result accuracy [...] 8.73 and 9.27. Ref: https://ngsp.org/CAPdata.asp. The in-house [employer] D-100 analyzer has a historical CV <= 2%. Contact the laboratory for further performance characteristics of this assay. Ordering Provider: BUCK HUNT Report Released Date/Time: Feb 06, 2024 10:44 AM Reporting Lab: [address] [address] Performing Lab: [address] [address] GLYCOHEMOGLOBIN 6.4 4.4-6.4 Feb 06, 2024 12:24 PM [facility] HCV SERUM Specimen Type: SERUM Comment: FOR HCV TESTING: Reactive HCV indicates probable Hepatitis C infection. All reactive Hepatitis C antibody results are flagged (reported as REACTIVE H) to enhance infectious disease tracking for [facility] patients. A nonreactive HCV antibody result does not exclude the possibility of exposure to HCV. Refer to https://www.hepatitis.va.gov/ and the latest [facility] Hepatitis Directive for additional information and supplemental testing guidelines. Ordering Provider: BUCK HUNT Report Released Date/Time: Feb 06, 2024 10:45 AM Reporting Lab: [facility] [address] [facility] [address] Performing Lab: [place] [id number] [facility] [address] HCV Nonreactive Nonreactive Advance Directives: All historical [...] 08, 2024 ADVANCE DIRECTIVE DISCUSSION [facility] Encounter Notes: All associated encounter notes This section contains the clinical notes associated to the Encounter. Date/Time Encounter Note(s) Provider Source Jan 05, 2024 10:34 AM NONVA NOTE: LOCAL TITLE: OUTSIDE MEDICAL RECORD-OTHER STANDARD TITLE: NONVA NOTE DATE OF NOTE: JAN 05, 2024@10:34 ENTRY DATE: FEB 23, 2024@10:34:57 AUTHOR: DIONY URIAS EXP COSIGNER: URGENCY: STATUS: COMPLETED The scanned document may be viewed in [employer]. /rosette/ DIONY URIAS BAND CUTTER Signed: 02/23/2024 10:35 DIONY URIAS [facility]
--- OUTSIDE RECORDS SUMMARY | 2024-07-08 08:53 | XMS_ITS | Encounter Summary ---
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 [place] BLUECARD PREFERRED PROVIDER ORGANIZAT ION (PPO) [facility] Sep 21, 2012 [id number] [phone] LUIS MANUEL PERDOMO PATIENT [employer] ([id number]) PRESCRIPT ION [id number] Sep 21, 2012 [id number] [phone] LUIS MANUEL PERDOMO PATIENT MEDICARE (WNR) MEDICARE (M) PART B Sep 21, 2012 PART B [id number] NOEMI PERDOMO PATIENT MEDICARE (WNR) MEDICARE (M) PART A Jan 22, 2011 PART A [id number] [phone] NOEMI PERDOMO PATIENT MEDICARE PART D (WNR) MEDICARE (M) PART D Mar 24, 2014 PART D [id number] LUIS MANUEL PERDOMO PATIENT Selected Encounter This section includes the information on record at [place] for the Encounter. Date/Time Encounter Type Encounter Description Reason Pro vider Source Jan 12, 2024 10:59 AM Outpatient Encounter ADMIN PAT ACTIVTIES (MASNONCT) IHE Encounter Template Text not used by [place] Plan of Treatment: Future Appointments (+ 6 months) and Future Tests (+/- 45 days) The Plan of Treatment section includes future care activities for the patient from all [place] treatmentfacilities. This section includes future appointments and future orders which are active, pending or scheduled. Future Appointments This section includes appointments that were scheduled to occur 6 months from the date of the Encounter, up to a maximum of 20 appointments. The data comes from all [place] treatment facilities. Appointment Date/Time Appointment Type Appointme nt Facility Name Feb 06, 2024 10:00 AM AMBULATORY - MEDICINE [facility] Mar 11, 2024 08:00 AM AMBULATORY - NONE [facility] May 05, 2024 08:00 AM AMBULATORY - NONE [facility] Lab Results: +/- 30 days of the encounter This section includes the Chemistry and Hematology Lab Results on record with [place] for the patient. Radiology Reports and Pathology Reports are provided separately, in subsequent sections. Lab Results This section contains the Chemistry/Hematology Results that were resulted 30 days before or 30 daysafter the date of the Encounter. Date/Time Source Result Type Result - Unit Interpretation Reference Range Specimen Type Comment Feb 06, 2024 12:24 PM [facility] CBC/PLT BLOOD Specimen Type: BLOOD No comment entered. Ordering Provider: BUCK HUTN Report Released Date/Time: Feb 06, 2024 10:44 AM Reporting Lab: [address] [address] Performing Lab: [address] [address] WBC 7.7 10*3/uL 5.0-10.0 RBC 4.27 10*6/uL L 4.6-6.2 HGB 12.2 g/dL L 14.0-18.0 HCT 37.5 L 42.0-52.0 MCV 87.8 fL 80.0-94.0 MCH 28.6 pg 27.0-31.0 MCHC 32.5 g/dL 32.0-36.0 PLT 236 10*3/uL 150-450 MPV 11.0 fL 9.0-13.1 RDW 14.0 11.0-16.0 NRBC 0.0 0.0-0.0 Feb 06, 2024 12:24 PM [facility] PANEL 5 PLASMA Specimen Type: PLASM [...] Feb 06, 2024 10:44 AM Reporting Lab: [address] [address] Performing Lab: [address] [address] CREATININE 0.91 mg/dL 0.72-1.25 UREA NITROGEN 17 [...] (CKD-EPI) 87 Feb 06, 2024 12:24 PM [facility] 25-OH VITAMIN D SERUM Specime n [...] Feb 06, 2024 10:44 AM Reporting Lab: [address] [address] Performing Lab: [address] [address] 25-OH VITAMIN D 50.7 ng/mL H 20.0-50.0 Feb 06, 2024 12:24 PM [facility] B12 VITAMIN PLASMA Specimen Type: PLASM [...] Feb 06, 2024 10:44 AM Reporting Lab: [address] [address] Performing Lab: [address] [address] B12 VITAMIN >2000 pg/mL H 213-816 Feb 06, 2024 12:24 PM [facility] PLASMA Specimen Type: PLASM A Comment: [...] Feb 06, 2024 10:44 AM Reporting Lab: [address] [address] Performing Lab: [address] [address] TSH 0.6365 m[IU]/mL 0.3500-4.9400 Feb 06, 2024 12:24 PM [facility] LIPID PROFILE PLASMA Specimen Type: PLASM [...] Feb 06, 2024 10:44 AM Reporting Lab: [address] [address] Performing Lab: [address] [address] CHOLESTEROL 136 mg/dL 0-199 TRIGLYCERIDE 154 mg/dL H 0-149 HDL CHOLESTEROL 37 mg/dL L 40-69 DIRECT LDL CHOL. 87 mg/dL 0-100 Feb 06, 2024 12:24 PM [facility] GLYCOHEMOGLOBIN BLOOD Specimen Type: BLOOD Comment: [place] guidelines for A1c interpretation: Glycemic control targets are based on Shared Decision Making between clinicians and patients. Criteria used to establish an A1c target recommendation can be found at https://www.[place].gov/qualityandpatientsafety/ and include the use of result accuracy [...] 8.73 and 9.27. Ref: https://ngsp.org/CAPdata.asp. The in-house [employer] D-100 analyzer has a historical CV <= 2%. Contact the laboratory for further performance characteristics of this assay. Ordering Provider: BUCK HUNT Report Released Date/Time: Feb 06, 2024 10:44 AM Reporting Lab: [address] [address] Performing Lab: [address] [address] GLYCOHEMOGLOBIN 6.4 4.4-6.4 Feb 06, 2024 12:24 PM [facility] HCV SERUM Specimen Type: SERUM Comment: FOR HCV TESTING: Reactive HCV indicates probable Hepatitis C infection. All reactive Hepatitis C antibody results are flagged (reported as REACTIVE H) to enhance infectious disease tracking for [facility] patients. A nonreactive HCV antibody result does not exclude the possibility of exposure to HCV. Refer to https://www.hepatitis.va.gov/ and the latest [facility] Hepatitis Directive for additional information and supplemental testing guidelines. Ordering Provider: BUCK HUNT Report Released Date/Time: Feb 06, 2024 10:45 AM Reporting Lab: [address] [address] Performing Lab: [address] [address] HCV Nonreactive Nonreactive Advance Directives: All historical and current Section Date Range: From patient's date of to the date document was created. This section includes ALL of a patient's completed or amended [place] Advance and Rescinded Directives. The entries below indicate that a directive exists for the patient, but an actual copy is not included with this document. The data comes from all [place] facilities. Date Advance Directives Provider Source Mar 08, 2024 ADVANCE DIRECTIVE DISCUSSION [facility] Encounter Notes: All associated encounter notes This section contains the clinical notes associated to the Encounter. Date/Time Encounter Note(s) Provider Source Jan 12, 2024 11:53 AM ADDENDUM: LOCAL TITLE: Addendum STANDARD TITLE: ADDENDUM DATE OF NOTE: JAN 12, 2024@11:53:25 ENTRY DATE: JAN 12, 2024@11:53:25 AUTHOR: MALATHI SANDOVAL EXP COSIGNER: URGENCY: STATUS: COMPLETED -will await records, but sounds like pt needs to be admitted to [facility] via [facility] /es/ MALATHI SANDOVAL STAFF PHYSICIAN/PRIMARY CARE Signed: 01/12/2024 11:53 Receipt Acknowledged By: 01/12/2024 13:25 /rosette/ Lizzy Rawls BSN, aids counselor Nurse Coordinator --- Original Document --- 01/12/24 HEALTH BENEFITS ADMINISTRATIVE NOTE: Eligible for enrollment: Yes has been enrolled and assigned to priority group 5 HBA enrolled 12/2023. This was eligible and enrolled as of 12/29/2023, [place] has consult entered as of that date but no schedualed appointment. [place] did taken a fall at home on 01/10/2024 and was taken to [facility]. [place] was diagnosed with a broken Fibula. Also told his knee was bone on bone . did call into Health Benefits Office on thiss date of record stating she was just told by a SW at that facility that Medicare would not cover discharge into a Rehab facility. states she has no hospital bed at home does not have a whell chair... that can not bear weight and would require ambulance transport. states SW at [facility] told her would be discharged with in an hour. [facility] /rosette/ NETTE GARCIA SURVEY SUPERINTENDENT Signed: 01/12/2024 11:09 Receipt Acknowledged By: 01/12/2024 11:28 /es/ Lizzy YEE, aids counselor Nurse Coordinator * AWAITING SIGNATURE * LESTER GONCALVES 01/12/2024 11:52 /es/ MALATHI SANDOVAL STAFF PHYSICIAN/PRIMARY CARE 01/12/2024 ADDENDUM STATUS: COMPLETED @1113: call to [facility] [employer], spoke with Diana who advised will need rehab however was not eligible via private pay. Diana states [place] will need Acute Rehab. Advised Diana to notify [facility] of 's admission, advised to fax RFS with supporting documentation to [phone] for review possible approval of acute rehab. @7932: Call to 's ,Celena, at , no answer, HIPPA compliant vm placed with transfer office contact number provided. /rosette/ Lizzy YEE, aids counselor Nurse Coordinator Signed: 01/12/2024 12:04 [facility] Jan 12, 2024 10:59 AM ADMINISTRATIVE NOT E: LOCAL TITLE: HEALTH BENEFITS ADMINISTRATIVE NOTE STANDARD TITLE: ADMINISTRATIVE NOTE DATE OF NOTE: JAN 12, 2024@10:59 ENTRY DATE: JAN 12, 2024@10:59:54 AUTHOR: NETTE GARCIA COSIGNER: URGENCY: STATUS: COMPLETED HEALTH BENEFITS ADMINISTRATIVE NOTE Has ADDENDA Eligible for enrollment: Yes has been enrolled and assigned to priority group 5 HBA enrolled 12/2023. This was eligible and enrolled as of 12/29/2023, [place] has consult entered as of that date but no schedualed appointment. [place] did taken a fall at home on 01/10/2024 and was taken to [facility]. was diagnosed with a broken Fibula. Also told his knee was bone on bone . did call into Health Benefits Office on thiss date of record stating she was just told by a SW at that facility that Medicare would not cover discharge into a Rehab facility. states she has no hospital bed at home does not have a whell chair... that can not bear weight and would require ambulance transport. states SW at [facility] told her would be discharged with in an hour. [facility] /es/ NETTE GARCIA SURVEY SUPERINTENDENT Signed: 01/12/2024 11:09 Receipt Acknowledged By: 01/12/2024 11:28 /rosette/ Lizzy YEE, aids counselor Nurse Coordinator 01/20/2024 10:31 /es/ LESTER GONCALVES SUPERVISORY SURVEY SUPERINTENDENT 01/12/2024 11:52 /es/ MALATHI SANDOVAL STAFF PHYSICIAN/PRIMARY CARE 01/12/2024 ADDENDUM STATUS: COMPLETED @1113: call to [facility] [employer], spoke with Diana who advised will need rehab however was not eligible via private pay. Diana states [place] will need Acute Rehab. Advised Diana to notify [facility] of [place]'s admission, advised to fax RFS with supporting documentation to [phone] for review possible approval of acute rehab. @1128: Call to [place]'s ,Celena, at , no answer, HIPPA compliant vm placed with transfer office contact number provided. /rosette/ Lizzy YEE, aids counselor Nurse Coordinator Signed: 01/12/2024 12:04 01/12/2024 ADDENDUM STATUS: COMPLETED -will await records, but sounds like pt needs to be admitted [facility] via [facility] /rosette/ MALATHI SANDOVAL STAFF PHYSICIAN/PRIMARY CARE Signed: 01/12/2024 11:53 Receipt Acknowledged By: 01/12/2024 13:25 /rosette/ Lizzy L. Rawls BSN, aids counselor Nurse Coordinator 03/09/2024 ADDENDUM STATUS: COMPLETED 1010 EZR was mailed on the address on record /rosette/ MICKEY BERRIOS Signed: 03/09/2024 08:20 NETTE GARCIA[facility]
--- OUTSIDE RECORDS SUMMARY | 2024-07-08 08:53 | XMS_ITS ---
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 Name Role Phone YULISSA HENDERSON Primary [...] PLAN F Mar 24, 2014 PLAN F [id number] [phone] LUIS MANUEL PERDOMO PATIENT [facility] [place] BLUECARD PREFERRED PROVIDER ORGANIZAT ION (PPO) [facility] Sep 21, 2012 [id number] [phone] LUIS MANUEL PERDOMO PATIENT [employer] ([id number]) PRESCRIPT ION [id number] Sep 21, 2012 [id number] [phone] LUIS MANUEL PERDOMO PATIENT MEDICARE (WNR) MEDICARE (M) PART B Sep 21, 2012 PART B [id number] NOEMI PERDOMO PATIENT MEDICARE (WNR) MEDICARE (M) PART A Jan 22, 2011 PART A [id number] [phone] NOEMI PERDOMO PATIENT MEDICARE PART D (WNR) MEDICARE (M) PART D Mar 24, 2014 PART D [id number] LUIS MANUEL PERDOMO PATIENT Selected Encounter This section includes the information on record at [place] for the Encounter. Date/Time Encounter Type Encounter Description Reason Pro vider Source May 25, 2024 08:11 AM Outpatient Encounter [facility] Nursing (RN / LP) I[facility] Encounter Template Text not used by [place] Plan of Treatment: Future Appointments (+ 6 months) and Future Tests (+/- 45 days) The Plan of Treatment section includes future care activities for the patient from all [place] treatmentfacilities. This section includes future appointments and future orders which are active, pending or scheduled. Future Appointments This section includes appointments that were scheduled to occur 6 months from the date of the Encounter, up to a maximum of 20 appointments. The data comes from all [place] treatment facilities. Appointment Date/Time Appointment Type Appointme nt Facility Name August 19, 2024 01:20 PM AMBULATORY - SURGERY [facility] Active, Pending, and Scheduled Orders This section includes a listing of several types of active, pending, and scheduled orders, including clinic medications orders, diagnostic test orders, procedure orders and consult orders; where the start date of the order is 45 days before the date of the Encounter or 45 days after the date of theEncounter. The data comes from all [facility] facilities. 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 Radiology Reports and Pathology Reports are provided separately, in subsequent sections. Lab Results This section contains the Chemistry/Hematology Results that were resulted 30 days before or 30 daysafter the date of the Encounter. Date/Time Source Result Type Result - Unit Interpretation Reference Range Specimen Type Comment May 25, 2024 11:30 AM [facility] N IRON/TIBC PLASMA Specimen Type: PLASMA No comment entered. Ordering Provider: YULISSA HENDERSON Report Released Date/Time: Apr 22, 2024 08:13 AM Reporting Lab: [address] [id number] Performing Lab: [address] [address] IRON 53 ug/dL L 65-175 TIBC 233 mg/dL L 250-425 IRON SATURATION 23 20-50 May 25, 2024 11:30 AM [facility] FERRITIN PLASMA Specimen Type: PLASMA No comment entered. Ordering Provider: YULISSA HENDERSON Report Released Date/Time: Apr 22, 2024 08:13 AM Reporting Lab: [address] [id number] Performing Lab: [address] [address] FERRITIN 141.1 ng/mL 21.8-274.7 May 25, 2024 11:30 AM [facility] CBC/PLT BLOOD Specimen Type: BLOOD No comment entered. Ordering Provider: YULISSA HENDERSON Report Released Date/Time: Apr 22, 2024 08:13 AM Reporting Lab: [address] [id number] Performing Lab: [address] [address] WBC 9.6 10*3/uL 5.0-10.0 RBC 4.00 10*6/uL [...] ALL of a patient's completed or amended [place] Advance and Rescinded Directives. The entries below indicate that a directive exists for the patient, but an actual copy is not included with this document. The data comes from all [place] facilities. Date Advance Directives Provider Source Mar 08, 2024 ADVANCE DIRECTIVE DISCUSSION [facility] Radiology Reports: +/- 30 days [...] the Encounter. The data comes from all [place] treatment facilities. Date/Time Radiology Report Provider Source May 31, 2024 10:53 AM ORTHO [id number],SUN,TUNL,W/B OTH AP STANDING: LUIS MANUEL PERDOMO [id number] -[id number] M Exm Date: MAY 31, 2024@10:53 Req Phys: YULISSA HENDERSON Loc: [facility] FACTORY HAND HM VST (Req'g Loc) Img Loc: [facility] RADIOLOGY Service: [place] [address] (Case [id number] COMPLETE) ORTHO [id number],SUN,TUNL,W/B (RAD Detailed) CPT:60249 Reason for Study: chronic pain right knee Clinical History: patient reports outside xrays show bone on bone Report Status: Verified Date Reported: JUN 01, 2024 Date Verified: JUN 01, 2024 Technical Support Associate E-Sig: Report: ORTHO [id number],SUN,TUNL,W/B OTH AP STANDING, 05/31/2024 11:07 AM EDT INDICATION: chronic pain right knee COMPARISON: None Impression: Right knee: No acute fracture or malalignment. Moderate tricompartmental degenerative change. Small inferior patellar pole enthesophyte. Vascular calcifications. 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 Primary Diagnostic Code: NO ALERT REQUIRED Primary Interpreting Staff: PINKY OBRIEN, Staff Physician Verified by noc analyst for PINKY OBRIEN /PINKY SINGH [facility] Encounter Notes: All associated encounter notes This section contains the clinical notes associated to the Encounter. Date/Time Encounter Note(s) Provider Source May 25, 2024 08:11 AM HOME HEALTH INTERD ISCIPLINARY NOTE: LOCAL TITLE: [facility] INTERDISCIPLINARY PLAN OF CARE STANDARD TITLE: HOME HEALTH INTERDISCIPLINARY NOTE DATE OF NOTE: MAY 25, 2024@08:11 ENTRY DATE: MAY 25, 2024@08:11:48 AUTHOR: LYNN ALCOCER EXP COSIGNER: YULISSA HENDERSON URGENCY: STATUS: COMPLETED Home Based Primary Care Interdisciplinary Treatment Plan Admission Date: 03/04/24 Period to cover: 05/25/24-08/22/24 Allergies: NKDA Diet Recommendation: Calorie Controlled/NCS/MICHELLE Activity level: Ad mima Mobility: -BED MOBILITY: occasional assist -TRANSFERS: Sit/Stand: elevate seat height, increased use of UE's, FWW. 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 Toileting: incontinence, wears depends, assist with clothing and cleanup. Bathing: assist seated Prosthetics/equipment/devices: manual w/c, VA ramp, threshold ramp at front door, non-VA hospital bed with memory foam mattress and upper half bed rails, FWW, retail selling floor leader, leg link trainer teacher, lift chair, bedside table, stationary exercise pedaler, non-VA bariatric rollator, x1 grab bar on doorframe, x1 grab bar outside shower, x3 grab bars inside shower, fall mat, bed rail, SW, BSC. On Feb ordered handheld shower, standard F22 rollator, ROHO [id number] mid profile cushion Living arrangements: with spouse Mental Status please see dated 03/04/24 Behavioral concerns-none Patient safety concerns: fall risk Emergency Preparedness Priority Code: 3-LOW Prognosis: fair CODE STATUS: FULL PROBLEM: Impaired physical mobility related to fatigue and weakness LLE with MS detention goals developed further with [place] include do ROM so no further decline in neuromuscular status Chronic will manage until discharge TARGET DATE FOR GOAL: Within the next quarter unless otherwise specified STATUS: Follows an outside neurologist for MS-he is limited in his ability to ambulate at this time due to his MS and a fracture- RN INTERVENTIONS for routine visits: Monitor blood pressure, pulse, respiration every visit. RN Educate on signs/symptoms worsening MS as needed RN Monitor medication use every visit. RN Educate / caregiver on bedrest for pain/fatigue during exacerbation as needed-RN Educate on safety/fall prevention as needed RN PROBLEM: DIABETES GOALS: detention goals developed further with include: will have HgbA1c level 8 CHRONIC WILL MANAGE UNTIL DISCHARGE TARGET DATE FOR GOAL: Within the next quarter unless otherwise specified. STATUS: A1C 02/06/24 6.4 RN INTERVENTIONS for routine visits: Monitor for symptoms of hypoglycemia and hyperglycemia. RN Educate [place]/caregiver on how to manage episodes of hypo/hyperglycemia as needed. RN Monitor medication compliance. RN Reinforce recommended diet with [place]/caregiver. RN Collect labs as ordered. Nurse Encourage /caregiver to perform blood sugar checks as recommended. 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 Chronic will manage until discharge. TARGET DATE FOR GOAL: Within the next quarter unless otherwise specified. STATUS:Continue volatern cream 3-4 times per day and PT for strengthening to support joint. Will enter order to knee xray and consult for orth after completion of 6 weeks conservative management. RN INTERVENTIONS for routine visits: Monitor medication compliance at each visit. RN Document assessment and effect of pain medications and comfort measures with each visit RN Encourage /cg to notify [facility] of new or uncontrolled pain. RN Assess for pain at home visits. RN Encourage medication compliance. RN Encourage use of nonpharmacological pain methods. 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 TARGET DATE FOR GOAL: Within the next quarter unless otherwise specified. STATUS: New patient to [facility] and to the [facility] system-will monitor his BP RN INTERVENTIONS for routine visits: Monitor blood pressure, pulse, respiration every visit. RN Educate on signs/symptoms of high blood as needed. RN Monitor and report to provider any signs/symptoms of high blood pressure ( headaches, dizziness, chest pain, peripheral edema, blurred vision, diminished urine output ,nausea, vomiting ). RN Monitor medication use every visit. RN Reinforce Recommended Diet. 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 [place]/Caregiver will report any adverse reactions, side effects, or concerns to [facility] relative to medication issues. TARGET DATE FOR GOAL: Within the next quarter, unless otherwise specified. Chronic- Will manage until discharge. STATUS: new patient -will monitor for compliance- RN INTERVENTIONS for routine visits: Remind /Caregiver to report any OTC use to [facility]. RN Monitor medication adherence every visit. RN Educate /caregiver on how to reorder medications as needed. RN Provide education on medication regimen, purpose, and side effects at initial assessment, with new medications, when medications changed, and as needed. RN Provide /Caregiver with current medication list and reconcile medications with each visit. 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 RN Monitor for need for any equipment, supplies or specialty services provided by [facility]. RN Coordination of information between the Home Health Agency and [facility] PACT. RN PROBLEM: ADVANCE DIRECTIVES/LIFE PLANNING [place] stated goal: I will think about doing an advance directive. 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 Advance Directive?No Yes on file in [facility] Living Will?No Yes on file in [facility] Durable Power of Prison Psychiatrist for Health Care? No/Yes Who? Full name and phone # INTERVENTIONS: Provide education and ongoing review of Advance Directives. SW Assist patient in completion of new Advance Directive if desired. SW PROBLEM: LONG-TERM CARE PLANNING stated goal: I wish to stay home. 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 TARGET DATE: Quarterly INTERVENTIONS: said she will care for [place] as long as she can, but placement may be needed in the future. Assist [place] and caregiver/medical decision maker in discussing life plans in relation to needs and available supports/services. SW Provide options of care and assist with any placement issues. SW HEALTH MAINTENANCE PROBLEM: SAFETY ISSUE - POTENTIAL FOR INJURY FROM FALLS GOALS: 1. [place] will have #1 no more than one fall per calendar month, #2 no falls with bone fracture, #3 no falls with a brain bleed and #4 no falls resulting in an emergency department visit. DATE FOR GOAL: Within the next 90 days, unless otherwise specified. STATUS: New health maintenance problem with goals. PT EDUCATION: - Home visit 19 Mar 2024: ordered rollator to increase safety with ambulation and provide seat to sit and rest when fatigued. Ordered handheld shower head. ROHO cushion for pressure relief. Contact info for seating and mobility clinic Frequency of [facility] home or VVC visits PROVIDER: Annually and as clinically indicated RN: Every- 6-8 weeks and 3 additional visits as needed in the quarter for medication management, post hospitalization assessment, symptom management, collection of labs and patient/caregiver education. SW: Annually, and 3 additional visits as needed in the quarter for crisis management, caregiver stress, housing issues, establishment of advance directives, financial issues, VA benefits, counseling, and transportation. PT: stable. 1-2 follow up visits (face to face, VVC, telephone) this quarter if clinically indicated for any of the following: identifying functional deficits and falls risk, post fall evaluation and education. Determine need for durable medical equipment (DME); educate and caregiver on safe use and maintenance of DME. RD: RD will complete a comprehensive in-home nutrition assessment as clinically indicated. Anticipate 0 follow up visits this quarter (VVC, telephone, in person) if clinically indicated for assessment and treatment of any of the following: Nutrition education/counseling, identifying and intervening on significant drug-nutrient interactions and drug-nutrient depletions, assessing ability to prepare recommended meals or administer enteral feeding, identifying food insecurity, performing in home swallow evaluations, identifying and reassessing malnutrition/effectiveness of oral nutrition supplements. Psychologist: As clinically indicated Members Present: Jennifer Lopez for Rosemarie Bolivar RD; Althea hamilton for Cierra Alcocer RN, Magalys Henderson FACTORY HAND, Valeriano Broussard Curriculum Developer Nurse Rug Hooker Hand; Isai Alfaro, PT; VIJAY Yousif for Henrry Stovall Psy.D.; Jer Corbin for Janae Paredes D, Dr. Diamond for Dr Geller, Abril BECKHAM Target date for next staffing-08/17/24 /rosette/ LYNN ALCOCER RN Signed: 05/25/2024 09:04 /es/ YULISSA HENDERSON APRN ADVANCED PRACTICE REGISTERED NURSE, [facility] Cosigned: 05/25/2024 09:29 Receipt Acknowledged By: 05/25/2024 10:48 /es/ Janae Ceja, Pharm.D., B.C.P.S Clinical Pharmacist - [facility] 05/25/2024 09:58 /es/ Carla Vega, Ph.D Licensed Clinical Psychologist 05/25/2024 09:42 /es/ Rosemarie Bolivar, RD, LD Clinical Dietitian 05/25/2024 09:38 /es/ CORY GELLER PHYSICIAN 05/25/2024 09:24 /es/ Valeriano Broussard, MSN RN [facility] RN 05/25/2024 09:34 /es/ [facility] 05/25/2024 10:41 /es/ ISAI ALFARO, PT, DPT PHYSICAL THERAPIST, [facility] 05/25/2024 13:40 /es/ LYNN JENKINS-D [facility]
--- OUTSIDE RECORDS SUMMARY | 2024-07-08 08:53 | XMS_ITS | Encounter Summary ---
Author Name [facility] [place] [facility] [place] Address [address] [place] [id number] Care Team Providers Care Chief Of Harbor Patrol Name Role Phone YULISSA HENDERSON Primary Care [...] PLAN F Mar 24, 2014 PLAN F [id number] LUIS MANUEL PERDOMO PATIENT [facility] [place] BLUECARD PREFERRED PROVIDER ORGANIZAT ION (PPO) [facility] Sep 21, 2012 [id number] [phone] LUIS MANUEL PERDOMO PATIENT [employer] [facility] ([id number]) PRESCRIPT ION WL3A Sep 21, 2012 [id number] [phone] LUIS MANUEL PERDOMO PATIENT MEDICARE (WNR) MEDICARE (M) PART B Sep 21, 2012 PART B [id number] NOEMI PERDOMO PATIENT MEDICARE (WNR) MEDICARE (M) PART A Jan 22, 2011 PART A [id number] NOEMI PERDOMO PATIENT MEDICARE PART D (WNR) MEDICARE (M) PART D Mar 24, 2014 PART D [id number] LUIS MANUEL PERDOMO PATIENT Selected Encounter This section includes the information on record at [place] for the Encounter. Date/Time Encounter Type Encounter Description Reason Pro vider Source Feb 06, 2024 11:43 AM Outpatient Encounter ADMIN PAT ACTIVTIES (MASNONCT) IHE Encounter Template Text not used by [place] Plan of Treatment: Future Appointments (+ 6 months) and Future Tests (+/- 45 days) The Plan of Treatment section includes future care activities for the patient from all [place] treatmentfacilities. This section includes future appointments and future orders which are active, pending or scheduled. Future Appointments This section includes appointments that were scheduled to occur 6 months from the date of the Encounter, up to a maximum of 20 appointments. The data comes from all [place] treatment facilities. Appointment Date/Time Appointment Type Appointme nt Facility Name Mar 11, 2024 08:00 AM AMBULATORY - NONE [facility] May 05, 2024 08:00 AM AMBULATORY - NONE [facility] Lab Results: +/- 30 days of the encounter This section includes the Chemistry and Hematology Lab Results on record with [place] for the patient. Radiology Reports and Pathology Reports are provided separately, in subsequent sections. Lab Results This section contains the Chemistry/Hematology Results that were resulted 30 days before or 30 daysafter the date of the Encounter. Date/Time Source Result Type Result - Unit Interpretation Reference Range Specimen Type Comment Feb 17, 2024 12:29 PM [facility] WN DRUG SCREEN EXPANDED IN-HOUSE URINE Specimen [...] characteristics can affect test outcome. Ordering Provider: COMER,BUCK R Report Released Date/Time: Feb 06, 2024 03:45 PM Reporting Lab: [place] [id number] Performing Lab: [place] [address] TETRAHYDROCANNABINOL SCREEN NEG Cuto ff < 50 [...] < 1 Feb 17, 2024 12:29 PM PSYCHIATRIC MICROALBUMIN/CREAT RATIO URINE Specimen Type: URINE Comment: Unable to calculate ratio due to low Microalbumin result. Ordering Provider: BUCK HUNT Report Released Date/Time: Feb 06, 2024 03:45 PM Reporting Lab: [place] [id number] Performing Lab: [place] [id number] CREATININE 102.7 mg/dL MICROALBUMIN QUANT <5.0 mg/L 0.0-30.0 .MICROALBUMIN/CREA RATIO comment ug/mg{creat} Feb 17, 2024 12:15 PM PSYCHIATRIC PANEL 1 PLASMA Specimen Type: PLASM A [...] Feb 06, 2024 03:45 PM Reporting Lab: [address] [address] Performing Lab: [address] [address] CREATININE 0.87 mg/dL 0.72-1.25 UREA NITROGEN 13 mg/dL 9-25 GLUCOSE 119 mg/dL H 74-100 SODIUM 133 mmol/L L 136-145 POTASSIUM 4.4 mmol/L 3.5-5.1 CHLORIDE 100 mmol/L 98-107 CO2 23 mmol/L 22-29 CALCIUM 9.0 mg/dL 8.4-10.2 ANION GAP 10 meq/L 3-19 eGFR (CKD-EPI) 88 Feb 06, 2024 12:24 PM PSYCHIATRIC CBC/PLT BLOOD Specimen Type: BLOOD No comment entered. Ordering Provider: BUCK HUNT Report Released Date/Time: Feb 06, 2024 10:44 AM Reporting Lab: [address] [address] Performing Lab: [address] [address] WBC 7.7 10*3/uL 5.0-10.0 RBC 4.27 10*6/uL L 4.6-6.2 HGB 12.2 g/dL L 14.0-18.0 HCT 37.5 L 42.0-52.0 MCV 87.8 fL 80.0-94.0 MCH 28.6 pg 27.0-31.0 MCHC 32.5 g/dL 32.0-36.0 PLT 236 10*3/uL 150-450 MPV 11.0 fL 9.0-13.1 RDW 14.0 11.0-16.0 NRBC 0.0 0.0-0.0 Feb 06, 2024 12:24 PM PSYCHIATRIC PANEL 5 PLASMA Specimen Type: PLASM A [...] Feb 06, 2024 10:44 AM Reporting Lab: [address] [address] Performing Lab: [address] [address] CREATININE 0.91 mg/dL 0.72-1.25 UREA NITROGEN 17 [...] (CKD-EPI) 87 Feb 06, 2024 12:24 PM PSYCHIATRIC 25-OH VITAMIN D SERUM Specime n Type: [...] Feb 06, 2024 10:44 AM Reporting Lab: [address] [address] Performing Lab: [address] [address] 25-OH VITAMIN D 50.7 ng/mL H 20.0-50.0 Feb 06, 2024 12:24 PM PSYCHIATRIC B12 VITAMIN PLASMA Specimen Type: PLASM A [...] Feb 06, 2024 10:44 AM Reporting Lab: [address] [address] Performing Lab: [address] [place] [address] B12 VITAMIN >2000 pg/mL H 213-816 Feb 06, 2024 12:24 PM [facility] TSH PLASMA Specimen Type: PLASM A Comment: [...] Feb 06, 2024 10:44 AM Reporting Lab: COUNTS [facility] [address] [address] Performing Lab: [facility] [address] [address] TSH 0.6365 m[IU]/mL 0.3500-4.9400 Feb 06, 2024 12:24 PM PSYCHIATRIC LIPID PROFILE PLASMA Specimen Type: PLASM A [...] Feb 06, 2024 10:44 AM Reporting Lab: [address] [address] Performing Lab: [address] [address] CHOLESTEROL 136 mg/dL 0-199 TRIGLYCERIDE 154 mg/dL H 0-149 HDL CHOLESTEROL 37 mg/dL L 40-69 DIRECT LDL CHOL. 87 mg/dL 0-100 Feb 06, 2024 12:24 PM PSYCHIATRIC GLYCOHEMOGLOBIN BLOOD Specimen Type: BLOOD Comment: [place] guidelines for A1c interpretation: Glycemic control targets are based on Shared Decision Making between clinicians and patients. Criteria used to establish an A1c target recommendation can be found at https://www.nc.gov/qualityandpatientsafety/ and include the use of result accuracy [...] 8.73 and 9.27. Ref: https://ngsp.org/CAPdata.asp. The in-house [employer] D-100 analyzer has a historical CV <= 2%. Contact the laboratory for further performance characteristics of this assay. Ordering Provider: BUCK HUNT Report Released Date/Time: Feb 06, 2024 10:44 AM Reporting Lab: [address] [address] Performing Lab: [address] [address] GLYCOHEMOGLOBIN 6.4 4.4-6.4 Feb 06, 2024 12:24 PM PSYCHIATRIC HCV SERUM Specimen Type: SERUM Comment: FOR HCV TESTING: Reactive HCV indicates probable Hepatitis C infection. All reactive Hepatitis C antibody results are flagged (reported as REACTIVE H) to enhance infectious disease tracking for [facility] patients. A nonreactive HCV antibody result does not exclude the possibility of exposure to HCV. Refer to https://www.hepatitis.va.gov/ and the latest [facility] Hepatitis Directive for additional information and supplemental testing guidelines. Ordering Provider: BUCK HUNT Report Released Date/Time: Feb 06, 2024 10:45 AM Reporting Lab: [facility] [address] [address] Performing Lab: [facility] [address] [address] HCV Nonreactive Nonreactive Advance Directives: All historical and current Section Date Range: From patient's date of to the date document was created. This section includes ALL of a patient's completed or amended [place] Advance and Rescinded Directives. The entries below indicate that a directive exists for the patient, but an actual copy is not included with this document. The data comes from all [place] facilities. Date Advance Directives Provider Source Mar 08, 2024 ADVANCE DIRECTIVE DISCUSSION R[facility]IN H[facility] Encounter Notes: All associated encounter notes This section contains the clinical notes associated to the Encounter. Date/Time Encounter Note(s) Provider Source Feb 06, 2024 11:43 AM ADMINISTRATIVE NOT E: LOCAL TITLE: CLERICAL/ADMIN NOTE STANDARD TITLE: ADMINISTRATIVE NOTE DATE OF NOTE: FEB 06, 2024@11:43 ENTRY DATE: FEB 06, 2024@11:43:28 AUTHOR: JUANY RAMIRES EXP COSIGNER: URGENCY: STATUS: COMPLETED Say Aud-2 Ld 03/30/2024@09:30 Future Hayden present at desk requesting a audiology appt. Scheduled per pdd and time letter given. /rosette/ JUANY RAMIRES Advanced Medical Support Signed: 02/06/2024 11:44 JUANY RAMIRES [facility]
--- OUTSIDE RECORDS SUMMARY | 2024-07-08 08:53 | XMS_ITS | Encounter Summary ---
Author Name [facility] Organization [facility] Address [address] [place] [address] Care Team Providers Care Informatics Nurse Name Role Phone JOSEE HENDERSON Primary Care Provider Unavailab JAMES Almanza [...] PLAN F Mar 24, 2014 PLAN F [id number] LUIS MANUEL PERDOMO PATIENT [facility] [place] BLU[place] PREFERRED PROVIDER ORGANIZAT ION (PPO) [facility] Sep 21, 2012 [id number] LUIS MANUEL PERDOMO PATIENT [employer] ([id number]) PRESCRIPT ION WL3A Sep 21, 2012 [id number] [phone] LUIS MANUEL PERDOMO PATIENT MEDICARE (WNR) MEDICARE (M) PART B Sep 21, 2012 PART B [id number] NOEMI PERDOMO PATIENT MEDICARE (WNR) MEDICARE (M) PART A Jan 22, 2011 PART A [id number] [phone] NOEMI PERDOMO PATIENT MEDICARE PART D (WNR) MEDICARE (M) PART D Mar 24, 2014 PART D [id number] LUIS MANUEL PERDOMO PATIENT Selected Encounter This section includes the information on record at [place] for the Encounter. Date/Time Encounter Type Encounter Description Reason Pro vider Source Jun 04, 2024 08:47 AM Outpatient Encounter [facility]BC ASSESSMENT IHE Encounter Template Text not used by [place] Plan of Treatment: Future Appointments (+ 6 months) and Future Tests (+/- 45 days) The Plan of Treatment section includes future care activities for the patient [facility] [place] [facility]. This section includes future appointments and future orders which are active, pending or scheduled. Future Appointments This section includes appointments that were scheduled to occur 6 months from the date of the Encounter, up to a maximum of 20 appointments. The data comes from all [facility] facilities. Appointment Date/Time Appointment Type Appointme nt Facility Name August 19, 2024 01:20 PM AMBULATORY - SURGERY [facility] Active, Pending, and Scheduled Orders This section includes a listing of several types of active, pending, and scheduled orders, including clinic medications orders, diagnostic test orders, procedure orders and consult orders; where the start date of the order is 45 days before the date of the Encounter or 45 days after the date of theEncounter. The data comes from all [facility]. Test Date/Time Test Type Test Details Facility Name Jun 08, 2024 11:04 AM Consult Order ORTHO KNEE OUTPATIENT Cons Knowledge Management Consultant's Choice [facility] Lab Results: +/- 30 days of the encounter This section includes the Chemistry and Hematology Lab Results on record with [place] for the patient. Radiology Reports and Pathology Reports are provided separately, in subsequent sections. Lab Results This section contains the Chemistry/Hematology Results that were resulted 30 days before or 30 daysafter the date of the Encounter. Date/Time Source Result Type Result - Unit Interpretation Reference Range Specimen Type Comment May 25, 2024 11:30 AM [facility] N IRON/TIBC PLASMA Specimen Type: PLASMA No comment entered. Ordering Provider: JOSEE HENDERSON Report Released Date/Time: Apr 22, 2024 08:13 AM Reporting Lab: [address] [address] Performing Lab: [address] [address] IRON 53 ug/dL L 65-175 TIBC 233 mg/dL L 250-425 IRON SATURATION 23 20-50 May 25, 2024 11:30 AM [facility] FERRITIN PLASMA Specimen Type: PLASMA No comment entered. Ordering Provider: JOSEE HENDERSON Report Released Date/Time: Apr 22, 2024 08:13 AM Reporting Lab: [address] [address] Performing Lab: [address] [address] FERRITIN 141.1 ng/mL 21.8-274.7 May 25, 2024 11:30 AM [facility] CBC/PLT BLOOD Specimen Type: BLOOD No comment entered. Ordering Provider: JOSEE HENDERSON Report Released Date/Time: Apr 22, 2024 08:13 AM Reporting Lab: [address] [address] Performing Lab: [address] [address] WBC 9.6 10*3/uL 5.0-10.0 RBC 4.00 10*6/uL [...] and tobacco- related health factors from the [place] facility where the Encounter took place. Current Smoking Status This section includes the most current smoking, or tobacco-related health factor, from the [place] facility where the Encounter took place. Date/Time Current Smoking Status Comment Gabriel stein Feb 06, 2024 10:00 AM VA-TOBACCO USER SOME DAYS [facility] Tobacco Use History This section includes a history of the smoking, or tobacco-related health factors, that were collected on or before the date of the Encounter. The data comes from the [place] facility where the Encounter took place. 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 This section includes ALL of a patient's completed or amended [place] Advance and Rescinded Directives. The entries below indicate that a directive exists for the patient, but an actual copy is not included with this document. The data comes from all [facility]. Date Advance Directives Provider Source Mar 08, 2024 ADVANCE DIRECTIVE DISCUSSION [facility] Radiology Reports: +/- 30 days [...] the Encounter. The data comes from all [place] treatment facilities. Date/Time Radiology Report Provider Source May 31, 2024 10:53 AM ORTHO [id number],ALEX SCHMIDT,W/B OTH AP STANDING: LUIS MANUEL PERDOMO [id number] -[id number] M Ex Date: MAY 31, 2024@10:53 Req Phys: JOSEE HENDERSON Loc: [facility] TIME STUDY CLERK HM VST (Req'g Loc) Img Loc: [facility] RADIOLOGY Service: [place] [address] (Case [id number] COMPLETE) ORTHO [id number],SUN,TUNL,W/B (RAD Detailed) CPT:55103 Reason for Study: chronic pain right knee Clinical History: patient reports outside xrays show bone on bone Report Status: Verified Date Reported: JUN 01, 2024 Date Verified: JUN 01, 2024 Mobile Paramedical Examiner E-Sig: Report: ORTHO [id number],SUN,TUNL,W/B OTH AP STANDING, 05/31/2024 11:07 AM EDT INDICATION: chronic pain right knee COMPARISON: None Impression: Right knee: No acute fracture or malalignment. Moderate tricompartmental degenerative change. Small inferior patellar pole enthesophyte. Vascular calcifications. 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 Primary Diagnostic Code: NO ALERT REQUIRED Primary Interpreting Staff: PINKY OBRIEN, Staff Physician Verified by university registrar for PINKY OBRIEN /PINKY SINGH [facility] Encounter Notes: All associated encounter notes This section contains the clinical notes associated to the Encounter. Date/Time Encounter Note(s) Provider Source Jun 04, 2024 08:47 AM [facility] NOTE: LOCAL TITLE: HHN RECEIVED ORDERS NOTE STANDARD TITLE: [facility] NOTE DATE OF NOTE: JUN 04, 2024@08:47 ENTRY DATE: JUN 04, 2024@08:47:08 AUTHOR: ANNIE LAGUERRE EXP COSIGNER: URGENCY: STATUS: COMPLETED Home Health Agency: [facility] [employer] Order Number / Date: [id number] SOC 2.26.25 to [id number] Encrypted email sent to provider for review and signature: Josee Henderson APRN /rosette/ Annie Laguerre RN, MSN, WOCN SHELL SIEVE OPERATOR Basket Machine Operator Signed: 06/04/2024 08:48 ANNIE LAGUERRE-[facility]
--- OUTSIDE RECORDS SUMMARY | 2024-07-08 08:53 | XMS_ITS | Encounter Summary ---
Author Name [facility] [place] [facility] [place] Address [address] [place] [address] Care Team Providers Care Confidential Secretary Name Role Phone YULISSA HENDERSON Primary Care [...] PLAN F Mar 24, 2014 PLAN F [id number] LUIS MANUEL PERDOMO PATIENT [facility] [place] [facility] PREFERRED PROVIDER ORGANIZAT ION (PPO) [facility] Sep 21, 2012 [id number] LUIS MANUEL PERDOMO PATIENT [employer] ([id number]) PRESCRIPT ION [id number] Sep 21, 2012 [id number] LUIS MANUEL PERDOMO PATIENT MEDICARE (WNR) MEDICARE (M) PART B Sep 21, 2012 PART B [id number] NOEMI PERDOMO PATIENT MEDICARE (WNR) MEDICARE (M) PART A Jan 22, 2011 PART A [id number] NOEMI PERDOMO PATIENT MEDICARE PART D (WNR) MEDICARE (M) PART D Mar 24, 2014 PART D [id number] LUIS MANUEL PERDOMO PATIENT Selected Encounter This section includes the information on record at [place] for the Encounter. Date/Time Encounter Type Encounter Description Reason Provider Source Feb 06, 2024 11:04 AM [facility] PR[facility] CARE/MEDICINE ICD-10-CM Z65.9 Problem related to unspecified psychosocial circumstances CATALINA ESCALANTE Stephen Encounter Template Text not used by [place] Assessments - Encounter Diagnoses This section includes the primary and secondary diagnoses documented for the Encounter. Date/Time Primary/Secondary Diagnosis Diagnosis Name Provider Source Feb 06, 2024 01:22 PM PRIMARY Problem related to unspecified psychosocial circumstances CATALINA ESCALANTE [facility] Plan of Treatment: Future Appointments (+ 6 months) and Future Tests (+/- 45 days) The Plan of Treatment section includes future care activities for the patient from all [place] treatmentfacilities. This section includes future appointments and future orders which are active, pending or scheduled. Future Appointments This section includes appointments that were scheduled to occur 6 months from the date of the Encounter, up to a maximum of 20 appointments. The data comes from all [place] treatment facilities. Appointment Date/Time Appointment Type Appointme nt Facility Name Mar 11, 2024 08:00 AM AMBULATORY - NONE [facility] May 05, 2024 08:00 AM AMBULATORY - NONE [facility] Lab Results: +/- 30 days of the encounter This section includes the Chemistry and Hematology Lab Results on record with [place] for the patient. Radiology Reports and Pathology Reports are provided separately, in subsequent sections. Lab Results This section contains the Chemistry/Hematology Results that were resulted 30 days before or 30 daysafter the date of the Encounter. Date/Time Source Result Type Result - Unit Interpretation Reference Range Specimen Type Comment Feb 17, 2024 12:29 PM [facility] WN DRUG SCREEN EXPANDED IN-HOUSE URINE [...] Feb 06, 2024 03:45 PM Reporting Lab: [address] Performing Lab: [place] [id number] TETRAHYDROCANNABINOL SCREEN NEG Cuto ff < 50 [...] < 1 Feb 17, 2024 12:29 PM [facility] MICROALBUMIN/CREAT RATIO URINE Specimen Type: URINE Comment: Unable to calculate ratio due to low Microalbumin result. Ordering Provider: BUCK HUNT Report Released Date/Time: Feb 06, 2024 03:45 PM Reporting Lab: [place] [id number] Performing Lab: [place] [id number] CREATININE 102.7 mg/dL MICROALBUMIN QUANT <5.0 mg/L 0.0-30.0 .MICROALBUMIN/CREA RATIO comment ug/mg{creat} Feb 17, 2024 12:15 PM [facility] PANEL 1 PLASMA Specimen Type: [...] Feb 06, 2024 03:45 PM Reporting Lab: [address] [address] Performing Lab: [address] [address] CREATININE 0.87 mg/dL 0.72-1.25 UREA NITROGEN 13 mg/dL 9-25 GLUCOSE 119 mg/dL H 74-100 SODIUM 133 mmol/L L 136-145 POTASSIUM 4.4 mmol/L 3.5-5.1 CHLORIDE 100 mmol/L 98-107 CO2 23 mmol/L 22-29 CALCIUM 9.0 mg/dL 8.4-10.2 ANION GAP 10 meq/L 3-19 eGFR (CKD-EPI) 88 Feb 06, 2024 12:24 PM [facility] CBC/PLT BLOOD Specimen Type: BLOOD No comment entered. Ordering Provider: BUCK HUTN Report Released Date/Time: Feb 06, 2024 10:44 AM Reporting Lab: [address] [address] Performing Lab: [address] [address] WBC 7.7 10*3/uL 5.0-10.0 RBC 4.27 10*6/uL L 4.6-6.2 HGB 12.2 g/dL L 14.0-18.0 HCT 37.5 L 42.0-52.0 MCV 87.8 fL 80.0-94.0 MCH 28.6 pg 27.0-31.0 MCHC 32.5 g/dL 32.0-36.0 PLT 236 10*3/uL 150-450 MPV 11.0 fL 9.0-13.1 RDW 14.0 11.0-16.0 NRBC 0.0 0.0-0.0 Feb 06, 2024 12:24 PM [facility] PANEL 5 PLASMA Specimen Type: PLASM A [...] <15 G5 Kidney failure Ordering Provider: BUCK HNUT Report Released Date/Time: Feb 06, 2024 10:44 AM Reporting Lab: [address] [address] Performing Lab: [address] [address] CREATININE 0.91 mg/dL 0.72-1.25 UREA NITROGEN 17 [...] (CKD-EPI) 87 Feb 06, 2024 12:24 PM [facility] 25-OH VITAMIN D SERUM Specime n Type: [...] Feb 06, 2024 10:44 AM Reporting Lab: [facility] [address] [facility] [address] Performing Lab: [address] [address] 25-OH VITAMIN D 50.7 ng/mL H 20.0-50.0 Feb 06, 2024 12:24 PM [facility] B12 VITAMIN PLASMA Specimen Type: [...] Feb 06, 2024 10:44 AM Reporting Lab: [facility] [address] [place] [address] Performing Lab: [address] [address] B12 VITAMIN >2000 pg/mL H 213-816 Feb 06, 2024 12:24 PM [facility] TSH PLASMA Specimen Type: PLASM A [...] Feb 06, 2024 10:44 AM Reporting Lab: [address] [address] Performing Lab: [address] [address] TSH 0.6365 m[IU]/mL 0.3500-4.9400 Feb 06, 2024 12:24 PM [facility] LIPID PROFILE PLASMA Specimen Type: PLASM [...] Feb 06, 2024 10:44 AM Reporting Lab: [address] [address] Performing Lab: [address] [address] CHOLESTEROL 136 mg/dL 0-199 TRIGLYCERIDE 154 mg/dL H 0-149 HDL CHOLESTEROL 37 mg/dL L 40-69 DIRECT LDL CHOL. 87 mg/dL 0-100 Feb 06, 2024 12:24 PM [facility] GLYCOHEMOGLOBIN BLOOD Specimen Type: BLOOD Comment: [place] guidelines for A1c interpretation: Glycemic control targets are based on Shared Decision Making between clinicians and patients. Criteria used to establish an A1c target recommendation can be found at https://www.[place].gov/qualityandpatientsafety/ and include the use of result accuracy [...] 8.73 and 9.27. Ref: https://ngsp.org/CAPdata.asp. The in-house [employer] D-100 analyzer has a historical CV <= 2%. Contact the laboratory for further performance characteristics of this assay. Ordering Provider: BUCK HUNT Report Released Date/Time: Feb 06, 2024 10:44 AM Reporting Lab: [address] [address] Performing Lab: [address] [address] GLYCOHEMOGLOBIN 6.4 4.4-6.4 Feb 06, 2024 12:24 PM [facility] HCV SERUM Specimen Type: SERUM Comment: FOR HCV TESTING: Reactive HCV indicates probable Hepatitis C infection. All reactive Hepatitis C antibody results are flagged (reported as REACTIVE H) to enhance infectious disease tracking for [facility] patients. A nonreactive HCV antibody result does not exclude the possibility of exposure to HCV. Refer to https://www.hepatitis.[place].gov/ and the latest [facility] Hepatitis Directive for additional information and supplemental testing guidelines. Ordering Provider: BUCK HUNT Report Released Date/Time: Feb 06, 2024 10:45 AM Reporting Lab: [address] [address] Performing Lab: [address] [address] HCV Nonreactive Nonreactive Vital Signs: All taken on the encounter date This section contains inpatient and outpatient Vital Signs collected on the date of the Encounter. Date/Time Temperature Pulse Blood Pressure Respiratory Rate SP02 Pain Height Weight Body Mass Index Source Feb 06, 2024 10:04 AM 144/76 [facility] Feb 06, 2024 09:58 AM 97.2 66 148/79 12 96 0 69 251 37 [facility] Social History: Smoking Status (Most current) and Tobacco Use (All prior to encounter date) This section includes the most current, and the historical, smoking and tobacco- related health factors from the [place] facility where the Encounter took place. Current Smoking Status This section includes the most current smoking, or tobacco-related health factor, from the [place] facility where the Encounter took place. Date/Time Current Smoking Status Comment Gabriel stein Feb 06, 2024 10:00 AM VA-TOBACCO USER SOME DAYS [facility] Tobacco Use History This section includes a history of the smoking, or tobacco-related health factors, that were collected on or before the date of the Encounter. The data comes from the [place] facility where the Encounter took place. Date/Time Smoking Status/Tobacco Use Comment F acility Feb 06, 2024 10:00 AM VA-TOBACCO USE 30 YEARS OR MORE [facility] Feb 06, 2024 10:00 AM VA-TOBACCO USE ADVICE [facility] Feb 06, 2024 10:00 AM VA-TOBACCO USE HADOOP CONSULTANT NO [facility] Feb 06, 2024 10:00 AM VA-TOBACCO USE MED NO [facility] Feb 06, 2024 10:00 AM VA-TOBACCO USER SOME DAYS [facility] Advance Directives: All historical and current Section Date Range: From patient's date of to the date document was created. This section includes ALL of a patient's completed or amended [place] Advance and Rescinded Directives. The entries below indicate that a directive exists for the patient, but an actual copy is not included with this document. The data comes from all [place] facilities. Date Advance Directives Provider Source Mar 08, 2024 ADVANCE DIRECTIVE DISCUSSION [facility] Encounter Notes: All associated encounter notes This section contains the clinical notes associated to the Encounter. Date/Time Encounter Note(s) Provider Source Feb 06, 2024 11:04 AM SOCIAL WORK NOTE: LOCAL TITLE: SOCIAL WORK PSYCHOSOCIAL ASSESSMENT STANDARD TITLE: SOCIAL WORK NOTE DATE OF NOTE: FEB 06, 2024@11:04 ENTRY DATE: FEB 06, 2024@11:05:03 AUTHOR: CATALINA ESCALANTE COSIGNER: URGENCY: STATUS: COMPLETED SOCIAL WORK PC ASSESSMENT Presenting Problem: is new to [facility]; PC SW completed a psychosocial assessment. PC SW met with Perry and 's after PC HAND PRESSER appointment today. Referred from: [X]Primary Care Confidential Secretary [ ] [ ]Consult [ ]Other: DEMOGRAPHICS: Mr. LUIS MANUEL PERDOMO [address] [place] [address] Patient Phone Numbers: Cell: No data available Home: Work: Emergency Contact: Name: PATRICIA PERDOMO Relationship: EXTENDED FAMILY MEMBER Secondary Emergency Contact: Name: No data available Relationship: No data available Phone: No data available Secondary Next of Kin Contact Name: No data available Relationship: No data available Phone: No data available Address correct? [X]Yes [ ]No [ ]Correction: Telephone numbers correct? [ ]Yes [X]No [X]Correction and alerted Benefits to make the change: remove office NOK correct? [X]Yes [ ]No [ ]Correction and alerted Benefits to make the change: Emergency contact correct? 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 Nov 2023 Does an updated means test need completed? [ ]Yes [X]No If yes, provide VA Form 12-31EZR. Town of Residence: [place], [place] Type of Residence: [X]House [ ]Apartment [ ]Mobile home [ ]Assisted living [ ]custodial [ ]Adult family home [ ]Hotel/motel/boarding house [ ]Halfway [ ]Other: Living Arrangements: Does the reside alone? [ ]Yes [X]No [ ]Other: Who resides with the Perry? 's Does the Perry have concerns regarding stable housing? [ ]Yes [X]No Does the require a caregiver? If so, who provides the most support? [ ]N/A [ ]Yes [X]No Does Perry still operate a motor vehicle? [ ]Yes [X]No Does the Perry have concerns regarding food insecurity? [ ]Yes [X]No Orientation: Perry is oriented x4? (0-4; self, place, time, and situation) Due to orientation/memory concerns, does a SLUMS or MOCA need completed? [X]N/A [ ]Yes, separate note documenting cognitive screening [ ]No Does the Perry have a surrogate decision maker designated? Check all that apply. [ ]Guardian [ ]Fiduciary/Conservator [ ][place] Advance Directive [ ][place] Living Will [ ]Durable Power of Crate Repairer for Health Care [ ]Durable Power of Crate Repairer for Financial Matters If any of the above were indicated, are the forms in the medical record? [ ]Yes [ ]No If none of the above were indicated, provide [place] Advance Directive and/or [place] Living Will packets to Veterans. [ ]Yes, [place] Advance Directive was given to Perry. [X]No, Perry declined. Social Supports: [X]Spouse/partner [ ]Parent(s) [X]Adult children/child [X]Family [ ]Friend [ ]Mental Health Provider [ ]Home care services [ ]Senior Centers/Adult Day Program [ ]Gnosticist/spiritual [ ]Pets [ ]None [ ]Unknown [ ]Other: Leisure activities: What does the do for fun? watch TV, likes reading but cannot longer see well (PC SW encouraged Perry to consider audiobooks) Mood: [ ]Good [X]Neutral [ ]Irritable [ ]Elevated [ ]Anxious [ ]Depressed [ ]Dysphoric [ ]Grieving [ ]Angry [ ]Other: Perry has MS and has some difficult days physically which are hard to adjust to due to 's change in physical ability. Perry declined MH services. Length of Contact: 30 minutes Procedure: Health and Behavior Assessment Diagnosis: Problems related to unspecified psychosocial circumstances Social Work Interventions and Plan: PC SW talked with and 's about H BACK TENDER FOURDRINIER and Respite services through the [place]; they declined at this time. PC SW provided with PC SW contact information and encouraged Perry to contact [facility] if they become interested. and 's stated that their biggest need at this time is someone to help get in and out of the house while Perry is in a wheelchair. stated they have a ramp but it is too steep for 's to push up; Perry was previously able to walk up the ramp before recent leg fracture. PC SW will request PC HAND PRESSER submit a consult for a modular aluminum ramp. No other needs identified. Please refer Perry to PC SW if any future psychosocial needs arise. PC HAND PRESSER: Please submit a prosthetics consult for a modular aluminum ramp. Perry has one now ( paid for) but it is too steep. Thank you! /es/ CATALINA ESCALANTE FREIGHT CAR BUILDER Primary Care Accelerator Operator Signed: 02/06/2024 13:22 Receipt Acknowledged By: 02/06/2024 14:11 /es/ CATALINA RAMON APRN [facility]
--- OUTSIDE RECORDS SUMMARY | 2024-07-08 08:54 | XMS_ITS | Encounter Summary ---
Author Name [facility] Organization [facility] Address [address] [place] [id number] Care Team Providers Care Customer Service Correspondence Clerk Name Role Phone YULISSA HENDERSON Primary Care [...] PLAN F Mar 24, 2014 PLAN F [id number] [phone] LUIS MANUEL PERDOMO PATIENT [facility] [place] BLUECARD PREFERRED PROVIDER ORGANIZAT ION (PPO) [facility] Sep 21, 2012 [id number] LUIS MANUEL PERDOMO PATIENT [employer] ([id number]) PRESCRIPT ION [id number] Sep 21, 2012 [id number] [phone] LUIS MANUEL PERDOMO PATIENT MEDICARE (WNR) MEDICARE (M) PART B Sep 21, 2012 PART B [id number] NOEMI PERDOMO PATIENT MEDICARE (WNR) MEDICARE (M) PART A Jan 22, 2011 PART A [id number] NOEMI PERDOMO PATIENT MEDICARE PART D (WNR) MEDICARE (M) PART D Mar 24, 2014 PART D [id number] LUIS MANUEL PERDOMO PATIENT Selected Encounter This section includes the information on record at OR for the Encounter. Date/Time Encounter Type Encounter Description Reason Provider Source Apr 21, 2024 11:45 AM HHS/HOSPICE OF RN EA 15 MIN [facility] Nursing (RN / LP) ICD-10-CM G35 Multiple sclerosis LYNN ALCOCER Stephen Encounter Template Text not used by OR Assessments - Encounter Diagnoses This section includes the primary and secondary diagnoses documented for the Encounter. Date/Time Primary/Secondary Diagnosis Diagnosis Name Provider Source Apr 21, 2024 05:08 PM PRIMARY Multiple sclerosis LYNN ALCOCERCD Sav [facility] Apr 21, 2024 05:08 PM SECONDARY Constipation, unspecified LYNN ALCOCER-CD Sav [facility] Apr 21, 2024 05:08 PM SECONDARY Essential (primary) hypertension LYNN ALCOCER-CD Sav [facility] Apr 21, 2024 05:08 PM SECONDARY Pain in right knee LYNN ALCOCER-CD Sav [facility] Apr 21, 2024 05:08 PM SECONDARY Type 2 diabetes mellitus with unspecified complications LYNN ALCOCERCD Sav [facility] Plan of Treatment: Future Appointments (+ 6 months) and Future Tests (+/- 45 days) The Plan of Treatment section includes future care activities for the patient [facility] This section includes future appointments and future orders which are active, pending or scheduled. Future Appointments This section includes appointments that were scheduled to occur 6 months from the date of the Encounter, up to a maximum of 20 appointments. The data comes from all OR treatment facilities. Appointment Date/Time Appointment Type Appointme nt Facility Name May 05, 2024 08:00 AM AMBULATORY - NONE [place] [facility] August 19, 2024 01:20 PM AMB[facility]ORY - SURGERY [place] [facility] Advance Directives: All historical and current Section Date Range: From patient's date of to the date document was created. This section includes ALL of a patient's completed or amended OR Advance and Rescinded Directives. The entries below indicate that a directive exists for the patient, but an actual copy is not included with this document. The data comes from all OR facilities. Date Advance Directives Provider Source Mar 08, 2024 ADVANCE DIRECTIVE DISCUSSION [facility] Encounter Notes: All associated encounter notes This section contains the clinical notes associated to the Encounter. Date/Time Encounter Note(s) Provider Source May 27, 2024 11:21 AM LETTERS: LOCAL TITLE: [facility] LETTER TEST RESULTS STANDARD TITLE: LETTERS DATE OF NOTE: MAY 27, 2024@11:21 ENTRY DATE: MAY 27, 2024@11:21:34 AUTHOR: YULISSA HENDERSON COSIGNER: URGENCY: STATUS: COMPLETED [facility] [address] [place] [address] Mr. LUIS MANUEL PERDOMO [address] [place], [place] [address] May Dear Mr. LUIS MANUEL PERDOMO Your HB Provider has reviewed your recent tests, and wanted us to let you know that everything looked stable. Your blood counts have decreased slightly compared to january but are still in acceptable range. We your iron stores are slightly low, but this appears to be due to chronic disease processes and taking iron supplements would not likely help it. A copy of your test results is attached below. You may notice that some tests are listed as outside normal limits. Your HB Provider has reviewed these results, and has determined these are not considered to be significant. Therefore, they do not require further investigation or treatment. There are no recommended changes in your medications or treatment plan at this time. Please call us if you have questions or problems. You can reach us at (toll free number) or [phone] (local number). If you are enrolled in [employer]t, and utilize those services, you may prefer to contact us by secure message. Thank you for your service to our Country. We are honored to be able to provide medical care to you. LABS: Recent labwork Collection DT Specimen Test Name Result Units Ref Range 05/25/2024 11:30 BLOOD WBC 9.6 K/cmm 5.0 - 10.0 RBC 4.00 L M/cmm 4.6 - 6.2 HGB 11.3 L g/dL 14.0 - 18.0 HCT 35.0 L % 42.0 - 52.0 MCV 87.5 fL 80.0 - 94.0 MCH 28.3 pg 27.0 - 31.0 MCHC 32.3 g/dL 32.0 - 36.0 RDW 15.4 % 11.0 - 16.0 PLT 232 K/cmm 150 - 450 MPV 11.0 fL 9.0 - 13.1 NRBC 0.0 % 0.0 - 0.0 05/25/2024 11:30 PLASMA IRON 53 L ug/dL 65 - 175 TIBC 233 L mg/dL 250 - 425 IRON SATURATION 23 % 20 - 50 FERRITIN 141.1 ng/mL 21.8 - 274.7 RADIOLOGY: Recent radiology results No data available Sincerely, /rosette/ YULISSA HENDERSON APRN ADVANCED PRACTICE REGISTERED NURSE, [facility] Patient Record Number [id number] YULISSA HENDERSON-CDD [facility] May 05, 2024 07:55 AM ADDENDUM: LOCAL TITLE: Addendum STANDARD TITLE: ADDENDUM DATE OF NOTE: MAY 05, 2024@07:55:45 ENTRY DATE: MAY 05, 2024@07:55:46 AUTHOR: JANAE CEJA EXP COSIGNER: URGENCY: STATUS: COMPLETED Called pt's regarding meloxicam safety profile with other medications and disease states: - meloxicam + ASA: inc'd bleed risk - meloxicam + bisoprolol: may increase BP - meloxicam + metformin: may inc risk of JIMBO - meloxicam + HF: inc'd risk of HF exacerbation - meloxicam + CV disease: inc'd risk of CV events Reviewed that, of the non-steroidal medications, this is a more selective medication for pain and has less risk for GI bleed, CV events, etc. She says that Mr. Perdomo does not have pain sitting. He would not be willing to have a knee replacement, but was interested in knee injections. Advised that he would need to try this medication or similar prior to consideration for knee injections at the OR. Still, she does not think he will take this medication after reading the risks in the package insert. We discussed other options: topical medications, APAP. He does have Voltaren gel in the home and uses that with good effect. He also is using a knee brace that helps. Will add nonVA diclofenac gel to med list; advised this can be sent from OR when needed if they would like. Dc'd meloxicam from med list, likely will not take. Sent [employer] medication return bag for any medications to discard. /es/ Janae Ceja, Tom, B.C.P.S Clinical Pharmacist - [facility] Signed: 05/05/2024 10:08 Receipt Acknowledged By: 05/05/2024 14:27 /es/ LYNN ALCOCER RN 05/05/2024 10:21 /es/ YULISSA HENDERSON APRN ADVANCED PRACTICE REGISTERED NURSE, [facility] --- Original Document --- 04/21/24 [facility] NURSING PROGRESS: [facility] FOLLOW-UP NOTE Date of visit: Mar Time spent with patient: 60 min Date of admission to [facility]: Patient Identified by: Name, SS, Facial Recognition, Known Address Source of Information: Patient, Spouse What matter most to you in your life right now? I want to be able to do somethings for myself MEDICATIONS: Active Medications: Active Outpatient Medications (including Supplies): BRIEF,TRANQ ALEX OVERNITE XL#2117 PULLUP USE 1 BRIEF ACTIVE DIRECTED THREE TIMES A DAY Indication: FOR INCONTINENCE GLOVE VINYL MEDIUM PWDR-FREE NONSTERILE USE GLOVE ACTIVE DIRECTED FOUR TIMES A DAY Indication: CLEANING UNDERPAD,BED [id number] TRANQUILITY-2710 USE UNDERPAD ACTIVE DIRECTED THREE TIMES A DAY NEEDED Non-VA ASPIRIN 81MG CHEW TAB 81MG MOUTH DAILY ACTIVE Indication: FOR HEART Non-VA ATORVASTATIN CALCIUM TAB 20MG 20MG MOUTH AT BEDTIME ACTIVE Indication: FOR CHOLESTEROL Non-VA BISOPROLOL FUMARATE 5MG TAB 5MG MOUTH DAILY ACTIVE Indication: FOR BLOOD PRESSURE/HEART Non-VA CHOLECALCIF 10MCG (D3-400UNIT) TAB 10MCG MOUTH ACTIVE DAILY Indication: FOR VITAMIN D SUPPLEMENT Non-VA CHOLECALCIF 50MCG (D3-2,000UNIT) TAB 50MCG MOUTH ACTIVE TWICE A DAY Indication: FOR VITAMIN D SUPPLEMENT Non-VA CYANOCOBALAMIN 1000MCG TAB 1000MCG MOUTH DAILY ACTIVE Indication: FOR VITAMIN B12 SUPPLEMENT Non-VA FAMOTIDINE 20MG TAB 20MG MOUTH TWICE A DAY ACTIVE NEEDED Indication: FOR STOMACH Non-VA GABAPENTIN TAB 100MG MOUTH FOUR TIMES A DAY ACTIVE Indication: FOR NERVE PAIN Non-VA LEUPROLIDE (ELIGARD) 45MG(6 MONTH)LA INJ 45MG (1 ACTIVE DOSE) UNDER THE SKIN ONCE Indication: FOR PROSTATE CANCER Non-VA METFORMIN HCL 500MG 24HR SA TAB 500MG MOUTH DAILY ACTIVE Indication: FOR BLOOD SUGAR Non-VA METHENAMINE HIPPURATE 1GM TAB 1GM MOUTH TWICE A DAY ACTIVE Indication: FOR INFECTION Non-VA OCRELIZUMAB INJ,SOLN INTO THE VEIN DIRECTED ACTIVE Indication: FOR MULTIPLE SCLEROSIS Non-VA POLYETHYLENE GLYCOL 3350 ORAL PWDR 17 GRAMS (ONE ACTIVE CAPFUL FILLED TO LINE) IN LIQUID MOUTH DAILY Indication: FOR CONSTIPATION Non-VA PRESERVISION AREDS VITAMIN 2 CAPSULES MOUTH DAILY ACTIVE Indication: UNKNOWN Non-VA PSYLLIUM 520MG CAP 1 CAPSULE MOUTH DAILY ACTIVE Indication: UNKNOWN Non-VA SILODOSIN 8MG ORAL CAP 8MG MOUTH DAILY ACTIVE Indication: FOR PROSTRATE 19 Total Medications Xorf-hwp-masgrxs products used by patient: None per - Medications/OTC/supplements started and/or discontinued since last [facility] visit. Per [facility] medication records- Medication list compared with list/medication bottles in the home: No medication discrepancies were identified. Has the patient missed any doses since the last visit?* No Updated medication list was provided for the patient/caregiver: during the visit Education Provided: Education including regimen, indication for use, potential side effects, and interactions provided for the following medications: REviewed with patient and - Medication education and updated medication sheet provided to: Spouse Patient/caregiver indicated understanding by: Verbalization Medications set up by: Caregiver HOME SAFETY ASSESSMENT: No Unsound structure No Unsafe functional barriers (stairs, etc.) No Unsafe placement of rugs, cords, furniture No Weapons in the home N/A Weapons secured in an area away from the area of care provision No Inadequate Heating/Electricity No Inadequate Cooking Facilities No Inadequate Sleeping Arrangements No Inadequate Ventilation No Inadequate [place] No Unsafe Storage of Supplies/Equipment No Presence of Infestation of Pests Yes Functioning Smoke Alarm Present No Fire Extinguisher Present Yes Fire Exit Plan No Use of Restraints Yes Home is adaptable for Home Care No Smoking materials present in the home N/A Pets secured in an area away from the area of care provision No Additional safety concerns: Temperature: Temperature: 98.4 F (36.9 C) Pulse: Pulse: 60 Respirations: Respirations: 16 Blood Pressure: Blood Pressure: 126/64- monitors his BP- Pt is unable to be weighed in the home as he does not have full use of L foot. Does report significant weight gain over an unknown period of time. OXYGEN IN THE HOME: No PAIN EVALUATION: Patient answers Yes to Do you have pain? question. He reports pain in his right knee-kin like to see ortho-to see what can be done-says it is bone on bone and with his left leg weak due to the MS-he is not as mobile and independent as he would like to be- NEUROLOGICAL STATUS: No problems noted The patient is currently: Alert, Oriented to person, Oriented to place, Oriented to time, Oriented to situation, Pupils [employer] Education Provided: Review of s/s that need immediate medical attention (CVA, Head Trauma, Severe unrelieved headaches, seizures, ect...) Depression Screen: Over the last 2 WEEKS, how often have you been bothered by any of the following problems? Little interest or pleasure in doing things: not at all (0 points) Feeling down, depressed, or hopeless: not at all (0 points) Score: 0 Positive Screen = 3 or more Negative Screen = 2 and under Do you feel suicidal today? No CARDIOVASCULAR STATUS: Heart Sounds: Regular Pulses: Right Radial:Palpable Strong (+2) Left Radial: Palpable Strong (+2) Right Pedal: Palpable Strong (+2) Left Pedal: Palpable Strong (+2) Edema: No edema noted Education Provided: Reinforced diet recommendations, S/s of hyper/hypotension, take medications as prescribed, S/s that require immediate medication attention (s/s of acute VA, palpitations, ect...), Notify [facility] of new or worsening symptoms RESPIRATORY STATUS: Lung Sounds: Right Upper Lobe: Clear Right Middle Lobe: Clear Right Lower Lobe: Clear Left Upper Lobe: Clear Left Lower Lobe: Clear Cough: Nonproductive Education provided: GASTROINTESTINAL STATUS: Abdomen is: Flat Bowel Sounds: Normal Abdominal Pain: Describe: Bowel Movements: Normal Last BM: yesterday Frequency: every 2-3 days Patient has: constipation as times-has had for years-says he tke his psyllium powder as ordered and it does help. Other: NUTRITIONAL STATUS: Current Diet: Calorie Controlled/NCS/MICHELLE Appetite: Good Frequency of Meals: 3 meals/day-lunch usually sandwich and soup=then bigger meal at night- DIABETES: Frequency of hyper/hypoglycemic episodes:None Last A1C 6.4 02/06/24 Accucheck monitoring -No GENITOURINARY STATUS: Voiding without difficulty Comments: Urine Characteristics: Clear Patient has/uses: Urinal, Bathroom CHICHI SCORE: Chichi Scale Score:18 INTEGUMENTARY ASSESSMENT: Skin Color: Normal for ethnic group Skin Temperature: Warm Skin Moisture: Dry Skin Turgor: Within normal limits Skin Impairment: Yes: Location and Description: Wounds: Site 1: Location: coccyx Size: less than 1 cm Description: Wound care: cover wiht mepilex and pressure relief. MOBILITY: Patient is ambulatory with assistive devices: Rollator Patient extremety strength is: Weak left upper, Weak left lower FALLS: Have you fallen since last visit: No NURSING SUMMARY OF CARE: Reviewed poc and current interventions with patient and spouse-both voiced understanding and agreement. PROCEDURES/INTERVENTIONS: Medication Reconcilliation, Vital Signs, Assessment EDUCATION: Fall Prevention: Proper footwear, Safe use of assitive devices, Clutter free pathways, Safe placement of rugs and cords, Notify [facility] of falls Skin: Off-load pressure points, Use of barrier cream, Moisture dry skin, Keep clean and dry, Notify [facility] of changes in skin integrity, Wound care:mepilex as needed to coccyx Neuro: Notify [facility] of change in mental status, syncope, new or worsening, symptoms) Cardiopulmonary: (new onset CP, CP unrelieved with NTG, chest pressure, CP that radiates to left side/neck/jaw, new or worsening SOB, new onset or worsening palpitations, cyanosis) Hypentension: s/s of hyper/hypotension, Notify [facility] of extreme changes in BP GI/: Use of laxatives/stool softeners Diabetes: Diet recommendations, Medication compliance, s/s of hyper/hypoglycemia and treatment, Footcare, Notify [facility] of uncontrolled blood glucose Patient/Caregiver: Receptive to education Patient/caregiver indicates understanding of education by: Comments: Skilled nurse in home to teach on HTN Diabetes MS skin care-constipation- Next routine visit in 4-6 weeks. PCP, fracture right Fibula is now healed-he would like a consult regarding a possible knee replacement is he is eliglble-or other alternatives-he stated his knee is bone on bone and with his left leg weak due to the MS this decreases his mobility and indepence. asking about repeat labs-she stated that they were told he was slightly anemic and needed to follow up on that-that was in Nov=advised would speak with PCP and labs could be obtained at home. No other needs at this time. /rosette/ LYNN ALCOCER RN Signed: 04/21/2024 17:08 Receipt Acknowledged By: 04/22/2024 07:56 /rosette/ YULISSA HENDERSON APRN ADVANCED PRACTICE REGISTERED NURSE, [facility] 04/30/2024 ADDENDUM STATUS: COMPLETED will need trial of anti- inflammatory and physical therapy as well as imaging prior to ortho consult. [place] is new to [place] and has no imaging on file. Plan: start meloxicam 7.5 mg QHS. If pain not controlled on this dose, will consider increasing to 15 mg. HH pt ordered for strengthening/gait training/painful right knee when HH is completed will order xrays. Cierra please call the to inform. pharmacy please expedite meloxicam. /rosette/ YULISSA HENDERSON APRN ADVANCED PRACTICE REGISTERED NURSE, [facility] Signed: 04/30/2024 10:07 Receipt Acknowledged By: 04/30/2024 12:06 /rosette/ YULISSA KWOK PHARMD Pharmacy Water Purifier Operator, Delivery Coord. 05/04/2024 ADDENDUM STATUS: COMPLETED CM please see provider's recommendations above. /rosette/ Indu Moreno RN RN [facility] Signed: 05/04/2024 11:27 Receipt Acknowledged By: 05/04/2024 13:02 /rosette/ LYNN ALCOCER RN 05/04/2024 ADDENDUM STATUS: COMPLETED Called and was able to reach -she stated that PT was starting and the meloxicam had arrived-however she had not started it because he paper insert stated that it would interact with his atorvastatin-and maybe his blood pressure medicine- Janae please advise on the above concern regarding the meloxicam. /rosette/ LYNN ALCOCER RN Signed: 05/04/2024 16:41 Receipt Acknowledged By: 05/05/2024 07:55 /rosette/ Janae Ceja, Pharm.D., B.C.P.S Clinical Pharmacist - [facility] JANAE CEJA-CDD [facility] May 04, 2024 04:39 PM ADDENDUM: LOCAL TITLE: Addendum STANDARD TITLE: ADDENDUM DATE OF NOTE: MAY 04, 2024@16:39:02 ENTRY DATE: MAY 04, 2024@16:39:03 AUTHOR: LYNN ALCOCER EXP COSIGNER: URGENCY: STATUS: COMPLETED Called and was able to reach -she stated that PT was starting and the meloxicam had arrived-however she had not started it because he paper insert stated that it would interact with his atorvastatin-and maybe his blood pressure medicine- Janae please advise on the above concern regarding the meloxicam. /es/ LYNN ALCOCER RN Signed: 05/04/2024 16:41 Receipt Acknowledged By: 05/05/2024 07:55 /es/ Janae Ceja Pharm.D., B.C.P.S Clinical Pharmacist - [facility] --- Original Document --- 04/21/24 [facility] NURSING PROGRESS: [facility] FOLLOW-UP NOTE Date of visit: Mar Time spent with patient: 60 min Date of admission to [facility]: Patient Identified by: Name, SS, Facial Recognition, Known Address Source of Information: Patient, Spouse What matter most to you in your life right now? I want to be able to do somethings for myself MEDICATIONS: Active Medications: Active Outpatient Medications (including Supplies): BRIEF,TRANQ ALEX OVERNITE XL#2117 PULLUP USE 1 BRIEF ACTIVE DIRECTED THREE TIMES A DAY Indication: FOR INCONTINENCE GLOVE VINYL MEDIUM PWDR-FREE NONSTERILE USE GLOVE ACTIVE DIRECTED FOUR TIMES A DAY Indication: CLEANING UNDERPAD,BED [id number] TRANQUILITY-2710 USE UNDERPAD ACTIVE DIRECTED THREE TIMES A DAY NEEDED Non-VA ASPIRIN 81MG CHEW TAB 81MG MOUTH DAILY ACTIVE Indication: FOR HEART Non-VA ATORVASTATIN CALCIUM TAB 20MG 20MG MOUTH AT BEDTIME ACTIVE Indication: FOR CHOLESTEROL Non-VA BISOPROLOL FUMARATE 5MG TAB 5MG MOUTH DAILY ACTIVE Indication: FOR BLOOD PRESSURE/HEART Non-VA CHOLECALCIF 10MCG (D3-400UNIT) TAB 10MCG MOUTH ACTIVE DAILY Indication: FOR VITAMIN D SUPPLEMENT Non-VA CHOLECALCIF 50MCG (D3-2,000UNIT) TAB 50MCG MOUTH ACTIVE TWICE A DAY Indication: FOR VITAMIN D SUPPLEMENT Non-VA CYANOCOBALAMIN 1000MCG TAB 1000MCG MOUTH DAILY ACTIVE Indication: FOR VITAMIN B12 SUPPLEMENT Non-VA FAMOTIDINE 20MG TAB 20MG MOUTH TWICE A DAY ACTIVE NEEDED Indication: FOR STOMACH Non-VA GABAPENTIN TAB 100MG MOUTH FOUR TIMES A DAY ACTIVE Indication: FOR NERVE PAIN Non-VA LEUPROLIDE (ELIGARD) 45MG(6 MONTH)LA INJ 45MG (1 ACTIVE DOSE) UNDER THE SKIN ONCE Indication: FOR PROSTATE CANCER Non-VA METFORMIN HCL 500MG 24HR SA TAB 500MG MOUTH DAILY ACTIVE Indication: FOR BLOOD SUGAR Non-VA METHENAMINE HIPPURATE 1GM TAB 1GM MOUTH TWICE A DAY ACTIVE Indication: FOR INFECTION Non-VA OCRELIZUMAB INJ,SOLN INTO THE VEIN DIRECTED ACTIVE Indication: FOR MULTIPLE SCLEROSIS Non-VA POLYETHYLENE GLYCOL 3350 ORAL PWDR 17 GRAMS (ONE ACTIVE CAPFUL FILLED TO LINE) IN LIQUID MOUTH DAILY Indication: FOR CONSTIPATION Non-VA PRESERVISION AREDS VITAMIN 2 CAPSULES MOUTH DAILY ACTIVE Indication: UNKNOWN Non-VA PSYLLIUM 520MG CAP 1 CAPSULE MOUTH DAILY ACTIVE Indication: UNKNOWN Non-VA SILODOSIN 8MG ORAL CAP 8MG MOUTH DAILY ACTIVE Indication: FOR PROSTRATE 19 Total Medications Rojv-qun-rzvkunt products used by patient: None per - Medications/OTC/supplements started and/or discontinued since last [facility] visit. Per [facility] medication records- Medication list compared with list/medication bottles in the home: No medication discrepancies were identified. Has the patient missed any doses since the last visit?* No Updated medication list was provided for the patient/caregiver: during the visit Education Provided: Education including regimen, indication for use, potential side effects, and interactions provided for the following medications: REviewed with patient and - Medication education and updated medication sheet provided to: Spouse Patient/caregiver indicated understanding by: Verbalization Medications set up by: Caregiver HOME SAFETY ASSESSMENT: No Unsound structure No Unsafe functional barriers (stairs, etc.) No Unsafe placement of rugs, cords, furniture No Weapons in the home N/A Weapons secured in an area away from the area of care provision No Inadequate Heating/Electricity No Inadequate Cooking Facilities No Inadequate Sleeping Arrangements No Inadequate Ventilation No Inadequate [place] No Unsafe Storage of Supplies/Equipment No Presence of Infestation of Pests Yes Functioning Smoke Alarm Present No Fire Extinguisher Present Yes Fire Exit Plan No Use of Restraints Yes Home is adaptable for Home Care No Smoking materials present in the home N/A Pets secured in an area away from the area of care provision No Additional safety concerns: Temperature: Temperature: 98.4 F (36.9 C) Pulse: Pulse: 60 Respirations: Respirations: 16 Blood Pressure: Blood Pressure: 126/64- monitors his BP- Pt is unable to be weighed in the home as he does not have full use of L foot. Does report significant weight gain over an unknown period of time. OXYGEN IN THE HOME: No PAIN EVALUATION: Patient answers Yes to Do you have pain? question. He reports pain in his right knee-kin like to see ortho-to see what can be done-says it is bone on bone and with his left leg weak due to the MS-he is not as mobile and independent as he would like to be- NEUROLOGICAL STATUS: No problems noted The patient is currently: Alert, Oriented to person, Oriented to place, Oriented to time, Oriented to situation, Pupils [employer] Education Provided: Review of s/s that need immediate medical attention (CVA, Head Trauma, Severe unrelieved headaches, seizures, ect...) Depression Screen: Over the last 2 WEEKS, how often have you been bothered by any of the following problems? Little interest or pleasure in doing things: not at all (0 points) Feeling down, depressed, or hopeless: not at all (0 points) Score: 0 Positive Screen = 3 or more Negative Screen = 2 and under Do you feel suicidal today? No CARDIOVASCULAR STATUS: Heart Sounds: Regular Pulses: Right Radial:Palpable Strong (+2) Left Radial: Palpable Strong (+2) Right Pedal: Palpable Strong (+2) Left Pedal: Palpable Strong (+2) Edema: No edema noted Education Provided: Reinforced diet recommendations, S/s of hyper/hypotension, take medications as prescribed, S/s that require immediate medication attention (s/s of acute VA, palpitations, ect...), Notify [facility] of new or worsening symptoms RESPIRATORY STATUS: Lung Sounds: Right Upper Lobe: Clear Right Middle Lobe: Clear Right Lower Lobe: Clear Left Upper Lobe: Clear Left Lower Lobe: Clear Cough: Nonproductive Education provided: GASTROINTESTINAL STATUS: Abdomen is: Flat Bowel Sounds: Normal Abdominal Pain: Describe: Bowel Movements: Normal Last BM: yesterday Frequency: every 2-3 days Patient has: constipation as times-has had for years-says he tke his psyllium powder as ordered and it does help. Other: NUTRITIONAL STATUS: Current Diet: Calorie Controlled/NCS/MICHELLE Appetite: Good Frequency of Meals: 3 meals/day-lunch usually sandwich and soup=then bigger meal at night- DIABETES: Frequency of hyper/hypoglycemic episodes:None Last A1C 6.4 02/06/24 Accucheck monitoring -No GENITOURINARY STATUS: Voiding without difficulty Comments: Urine Characteristics: Clear Patient has/uses: Urinal, Bathroom CHICHI SCORE: Chichi Scale Score:18 INTEGUMENTARY ASSESSMENT: Skin Color: Normal for ethnic group Skin Temperature: Warm Skin Moisture: Dry Skin Turgor: Within normal limits Skin Impairment: Yes: Location and Description: Wounds: Site 1: Location: coccyx Size: less than 1 cm Description: Wound care: cover wiht mepilex and pressure relief. MOBILITY: Patient is ambulatory with assistive devices: Rollator Patient extremety strength is: Weak left upper, Weak left lower FALLS: Have you fallen since last visit: No NURSING SUMMARY OF CARE: Reviewed poc and current interventions with patient and spouse-both voiced understanding and agreement. PROCEDURES/INTERVENTIONS: Medication Reconcilliation, Vital Signs, Assessment EDUCATION: Fall Prevention: Proper footwear, Safe use of assitive devices, Clutter free pathways, Safe placement of rugs and cords, Notify [facility] of falls Skin: Off-load pressure points, Use of barrier cream, Moisture dry skin, Keep clean and dry, Notify [facility] of changes in skin integrity, Wound care:mepilex as needed to coccyx Neuro: Notify [facility] of change in mental status, syncope, new or worsening, symptoms) Cardiopulmonary: (new onset CP, CP unrelieved with NTG, chest pressure, CP that radiates to left side/neck/jaw, new or worsening SOB, new onset or worsening palpitations, cyanosis) Hypentension: s/s of hyper/hypotension, Notify [facility] of extreme changes in BP GI/: Use of laxatives/stool softeners Diabetes: Diet recommendations, Medication compliance, s/s of hyper/hypoglycemia and treatment, Footcare, Notify [facility] of uncontrolled blood glucose Patient/Caregiver: Receptive to education Patient/caregiver indicates understanding of education by: Comments: Skilled nurse in home to teach on HTN Diabetes MS skin care-constipation- Next routine visit in 4-6 weeks. PCP, fracture right Fibula is now healed-he would like a consult regarding a possible knee replacement is he is eliglble-or other alternatives-he stated his knee is bone on bone and with his left leg weak due to the MS this decreases his mobility and indepence. asking about repeat labs-she stated that they were told he was slightly anemic and needed to follow up on that-that was in Nov=advised would speak with PCP and labs could be obtained at home. No other needs at this time. /rosette/ LYNN ALCOCER RN Signed: 04/21/2024 17:08 Receipt Acknowledged By: 04/22/2024 07:56 /rosette/ YULISSA HENDERSON APRN ADVANCED PRACTICE REGISTERED NURSE, [facility] 04/30/2024 ADDENDUM STATUS: COMPLETED will need trial of anti- inflammatory and physical therapy as well as imaging prior to ortho consult. [place] and [place] imaging [place] file. Plan: start meloxicam 7.5 mg QHS. If pain not controlled on this dose, will consider increasing to 15 mg. HH pt ordered for strengthening/gait training/painful right knee when HH is completed will order xrays. Cierra please call the to inform. pharmacy please expedite meloxicam. /rosette/ YULISSA HENDERSON APRN ADVANCED PRACTICE REGISTERED NURSE, [facility] Signed: 04/30/2024 10:07 Receipt Acknowledged By: 04/30/2024 12:06 /rosette/ YULISSA KWOK PHARMD Pharmacy Water Purifier Operator, Delivery Coord. 05/04/2024 ADDENDUM STATUS: COMPLETED CM please see provider's recommendations above. /rosette/ Indu Moreno RN RN [facility] Signed: 05/04/2024 11:27 Receipt Acknowledged By: 05/04/2024 13:02 /rosette/ LYNN ALCOCER RN 05/05/2024 ADDENDUM STATUS: UNSIGNED You may not VIEW this UNSIGNED Addendum. LYNN ALCOCER [facility] May 04, 2024 11:26 AM ADDENDUM: LOCAL TITLE: Addendum STANDARD TITLE: ADDENDUM DATE OF NOTE: MAY 04, 2024@11:26:53 ENTRY DATE: MAY 04, 2024@11:26:54 AUTHOR: INDU MORENO EXP COSIGNER: URGENCY: STATUS: COMPLETED CM please see provider's recommendations above. /jeannette Moreno RN RN [facility] Signed: 05/04/2024 11:27 Receipt Acknowledged By: 05/04/2024 13:02 /rosette/ LYNN ALCOCER RN --- Original Document --- 04/21/24 [facility] NURSING PROGRESS: [facility] FOLLOW-UP NOTE Date of visit: Mar Time spent with patient: 60 min Date of admission to [facility]: Patient Identified by: Name, SS, Facial Recognition, Known Address Source of Information: Patient, Spouse What matter most to you in your life right now? I want to be able to do somethings for myself MEDICATIONS: Active Medications: Active Outpatient Medications (including Supplies): BRIEF,TRANQ ALEX OVERNITE XL#2117 PULLUP USE 1 BRIEF ACTIVE DIRECTED THREE TIMES A DAY Indication: FOR INCONTINENCE GLOVE VINYL MEDIUM PWDR-FREE NONSTERILE USE GLOVE ACTIVE DIRECTED FOUR TIMES A DAY Indication: CLEANING UNDERPAD,BED [id number] TRANQUILITY-2710 USE UNDERPAD ACTIVE DIRECTED THREE TIMES A DAY NEEDED Non-VA ASPIRIN 81MG CHEW TAB 81MG MOUTH DAILY ACTIVE Indication: FOR HEART Non-VA ATORVASTATIN CALCIUM TAB 20MG 20MG MOUTH AT BEDTIME ACTIVE Indication: FOR CHOLESTEROL Non-VA BISOPROLOL FUMARATE 5MG TAB 5MG MOUTH DAILY ACTIVE Indication: FOR BLOOD PRESSURE/HEART Non-VA CHOLECALCIF 10MCG (D3-400UNIT) TAB 10MCG MOUTH ACTIVE DAILY Indication: FOR VITAMIN D SUPPLEMENT Non-VA CHOLECALCIF 50MCG (D3-2,000UNIT) TAB 50MCG MOUTH ACTIVE TWICE A DAY Indication: FOR VITAMIN D SUPPLEMENT Non-VA CYANOCOBALAMIN 1000MCG TAB 1000MCG MOUTH DAILY ACTIVE Indication: FOR VITAMIN B12 SUPPLEMENT Non-VA FAMOTIDINE 20MG TAB 20MG MOUTH TWICE A DAY ACTIVE NEEDED Indication: FOR STOMACH Non-VA GABAPENTIN TAB 100MG MOUTH FOUR TIMES A DAY ACTIVE Indication: FOR NERVE PAIN Non-VA LEUPROLIDE (ELIGARD) 45MG(6 MONTH)LA INJ 45MG (1 ACTIVE DOSE) UNDER THE SKIN ONCE Indication: FOR PROSTATE CANCER Non-VA METFORMIN HCL 500MG 24HR SA TAB 500MG MOUTH DAILY ACTIVE Indication: FOR BLOOD SUGAR Non-VA METHENAMINE HIPPURATE 1GM TAB 1GM MOUTH TWICE A DAY ACTIVE Indication: FOR INFECTION Non-VA OCRELIZUMAB INJ,SOLN INTO THE VEIN DIRECTED ACTIVE Indication: FOR MULTIPLE SCLEROSIS Non-VA POLYETHYLENE GLYCOL 3350 ORAL PWDR 17 GRAMS (ONE ACTIVE CAPFUL FILLED TO LINE) IN LIQUID MOUTH DAILY Indication: FOR CONSTIPATION Non-VA PRESERVISION AREDS VITAMIN 2 CAPSULES MOUTH DAILY ACTIVE Indication: UNKNOWN Non-VA PSYLLIUM 520MG CAP 1 CAPSULE MOUTH DAILY ACTIVE Indication: UNKNOWN Non-VA SILODOSIN 8MG ORAL CAP 8MG MOUTH DAILY ACTIVE Indication: FOR PROSTRATE 19 Total Medications [id number] products used by patient: None per - Medications/OTC/supplements started and/or discontinued since last [facility] visit. Per [facility] medication records- Medication list compared with list/medication bottles in the home: No medication discrepancies were identified. Has the patient missed any doses since the last visit?* No Updated medication list was provided for the patient/caregiver: during the visit Education Provided: Education including regimen, indication for use, potential side effects, and interactions provided for the following medications: REviewed with patient and - Medication education and updated medication sheet provided to: Spouse Patient/caregiver indicated understanding by: Verbalization Medications set up by: Caregiver HOME SAFETY ASSESSMENT: No Unsound structure No Unsafe functional barriers (stairs, etc.) No Unsafe placement of rugs, cords, furniture No Weapons in the home N/A Weapons secured in an area away from the area of care provision No Inadequate Heating/Electricity No Inadequate Cooking Facilities No Inadequate Sleeping Arrangements No Inadequate Ventilation No Inadequate [place] No Unsafe Storage of Supplies/Equipment No Presence of Infestation of Pests Yes Functioning Smoke Alarm Present No Fire Extinguisher Present Yes Fire Exit Plan No Use of Restraints Yes Home is adaptable for Home Care No Smoking materials present in the home N/A Pets secured in an area away from the area of care provision No Additional safety concerns: Temperature: Temperature: 98.4 F (36.9 C) Pulse: Pulse: 60 Respirations: Respirations: 16 Blood Pressure: Blood Pressure: 126/64- monitors his BP- Pt is unable to be weighed in the home as he does not have full use of L foot. Does report significant weight gain over an unknown period of time. OXYGEN IN THE HOME: No PAIN EVALUATION: Patient answers Yes to Do you have pain? question. He reports pain in his right knee-kin like to see ortho-to see what can be done-says it is bone on bone and with his left leg weak due to the MS-he is not as mobile and independent as he would like to be- NEUROLOGICAL STATUS: No problems noted The patient is currently: Alert, Oriented to person, Oriented to place, Oriented to time, Oriented to situation, Pupils PEAR[employer] Education Provided: Review of s/s that need immediate medical attention (CVA, Head Trauma, Severe unrelieved headaches, seizures, ect...) Depression Screen: Over the last 2 WEEKS, how often have you been bothered by any of the following problems? Little interest or pleasure in doing things: not at all (0 points) Feeling down, depressed, or hopeless: not at all (0 points) Score: 0 Positive Screen = 3 or more Negative Screen = 2 and under Do you feel suicidal today? No CARDIOVASCULAR STATUS: Heart Sounds: Regular Pulses: Right Radial:Palpable Strong (+2) Left Radial: Palpable Strong (+2) Right Pedal: Palpable Strong (+2) Left Pedal: Palpable Strong (+2) Edema: No edema noted Education Provided: Reinforced diet recommendations, S/s of hyper/hypotension, take medications as prescribed, S/s that require immediate medication attention (s/s of acute VA, palpitations, ect...), Notify [facility] of new or worsening symptoms RESPIRATORY STATUS: Lung Sounds: Right Upper Lobe: Clear Right Middle Lobe: Clear Right Lower Lobe: Clear Left Upper Lobe: Clear Left Lower Lobe: Clear Cough: Nonproductive Education provided: GASTROINTESTINAL STATUS: Abdomen is: Flat Bowel Sounds: Normal Abdominal Pain: Describe: Bowel Movements: Normal Last BM: yesterday Frequency: every 2-3 days Patient has: constipation as times-has had for years-says he tke his psyllium powder as ordered and it does help. Other: NUTRITIONAL STATUS: Current Diet: Calorie Controlled/NCS/MICHELLE Appetite: Good Frequency of Meals: 3 meals/day-lunch usually sandwich and soup=then bigger meal at night- DIABETES: Frequency of hyper/hypoglycemic episodes:None Last A1C 6.4 02/06/24 Accucheck monitoring -No GENITOURINARY STATUS: Voiding without difficulty Comments: Urine Characteristics: Clear Patient has/uses: Urinal, Bathroom CHICHI SCORE: Chichi Scale Score:18 INTEGUMENTARY ASSESSMENT: Skin Color: Normal for ethnic group Skin Temperature: Warm Skin Moisture: Dry Skin Turgor: Within normal limits Skin Impairment: Yes: Location and Description: Wounds: Site 1: Location: coccyx Size: less than 1 cm Description: Wound care: cover wiht mepilex and pressure relief. MOBILITY: Patient is ambulatory with assistive devices: Rollator Patient extremety strength is: Weak left upper, Weak left lower FALLS: Have you fallen since last visit: No NURSING SUMMARY OF CARE: Reviewed poc and current interventions with patient and spouse-both voiced understanding and agreement. PROCEDURES/INTERVENTIONS: Medication Reconcilliation, Vital Signs, Assessment EDUCATION: Fall Prevention: Proper footwear, Safe use of assitive devices, Clutter free pathways, Safe placement of rugs and cords, Notify [facility] of falls Skin: Off-load pressure points, Use of barrier cream, Moisture dry skin, Keep clean and dry, Notify [facility] of changes in skin integrity, Wound care:mepilex as needed to coccyx Neuro: Notify [facility] of change in mental status, syncope, new or worsening, symptoms) Cardiopulmonary: (new onset CP, CP unrelieved with NTG, chest pressure, CP that radiates to left side/neck/jaw, new or worsening SOB, new onset or worsening palpitations, cyanosis) Hypentension: s/s of hyper/hypotension, Notify [facility] of extreme changes in BP GI/: Use of laxatives/stool softeners Diabetes: Diet recommendations, Medication compliance, s/s of hyper/hypoglycemia and treatment, Footcare, Notify [facility] of uncontrolled blood glucose Patient/Caregiver: Receptive to education Patient/caregiver indicates understanding of education by: Comments: Skilled nurse in home to teach on HTN Diabetes MS skin care-constipation- Next routine visit in 4-6 weeks. PCP, fracture right Fibula is now healed-he would like a consult regarding a possible knee replacement is he is eliglble-or other alternatives-he stated his knee is bone on bone and with his left leg weak due to the MS this decreases his mobility and indepence. asking about repeat labs-she stated that they were told he was slightly anemic and needed to follow up on that-that was in Nov=advised would speak with PCP and labs could be obtained at home. No other needs at this time. /rosette/ LYNN ALCOCER RN Signed: 04/21/2024 17:08 Receipt Acknowledged By: 04/22/2024 07:56 /rosette/ YULISSA HENDERSON APRN ADVANCED PRACTICE REGISTERED NURSE, [facility] 04/30/2024 ADDENDUM STATUS: COMPLETED will need trial of anti- inflammatory and physical therapy as well as imaging prior to ortho consult. [place] and [place] imaging on file. Plan: start meloxicam 7.5 mg QHS. If pain not controlled on this dose, will consider increasing to 15 mg. HH pt ordered for strengthening/gait training/painful right knee when HH is completed will order xrays. Cierra please call the to inform. pharmacy please expedite meloxicam. /rosette/ YULISSA HENDERSON APRN ADVANCED PRACTICE REGISTERED NURSE, [facility] Signed: 04/30/2024 10:07 Receipt Acknowledged By: 04/30/2024 12:06 /rosette/ YULISSA KWOK PHARMD Pharmacy Water Purifier Operator, Delivery Coord. INDU MORENO[facility] Apr 30, 2024 09:47 AM ADDENDUM: LOCAL TITLE: Addendum STANDARD TITLE: ADDENDUM DATE OF NOTE: APR 30, 2024@09:47:43 ENTRY DATE: APR 30, 2024@09:47:43 AUTHOR: YULISSA HENDERSON EXP COSIGNER: URGENCY: STATUS: COMPLETED will need trial of anti- inflammatory and physical therapy as well as imaging prior to ortho consult. [place] and has no imaging on file. Plan: start meloxicam 7.5 mg QHS. If pain not controlled on this dose, will consider increasing to 15 mg. HH pt ordered for strengthening/gait training/painful right knee when HH is completed will order xrays. Cierra please call the to inform. pharmacy please expedite meloxicam. /es/ YULISSA HENDERSON APRN ADVANCED PRACTICE REGISTERED NURSE, [facility] Signed: 04/30/2024 10:07 Receipt Acknowledged By: 04/30/2024 12:06 /es/ YULISSA KWOK PHARMD Pharmacy Water Purifier Operator, Delivery Coord. --- Original Document --- 04/21/24 [facility] NURSING PROGRESS: [facility] FOLLOW-UP NOTE Date of visit: Mar Time spent with patient: 60 min Date of admission to [facility]: Patient Identified by: Name, SS, Facial Recognition, Known Address Source of Information: Patient, Spouse What matter most to you in your life right now? I want to be able to do somethings for myself MEDICATIONS: Active Medications: Active Outpatient Medications (including Supplies): BRIEF,TRANQ ALEX OVERNITE XL#2117 PULLUP USE 1 BRIEF ACTIVE DIRECTED THREE TIMES A DAY Indication: FOR INCONTINENCE GLOVE VINYL MEDIUM PWDR-FREE NONSTERILE USE GLOVE ACTIVE DIRECTED FOUR TIMES A DAY Indication: CLEANING UNDERPAD,BED [id number] TRANQUILITY-2710 USE UNDERPAD ACTIVE DIRECTED THREE TIMES A DAY NEEDED Non-VA ASPIRIN 81MG CHEW TAB 81MG MOUTH DAILY ACTIVE Indication: FOR HEART Non-VA ATORVASTATIN CALCIUM TAB 20MG 20MG MOUTH AT BEDTIME ACTIVE Indication: FOR CHOLESTEROL Non-VA BISOPROLOL FUMARATE 5MG TAB 5MG MOUTH DAILY ACTIVE Indication: FOR BLOOD PRESSURE/HEART Non-VA CHOLECALCIF 10MCG (D3-400UNIT) TAB 10MCG MOUTH ACTIVE DAILY Indication: FOR VITAMIN D SUPPLEMENT Non-VA CHOLECALCIF 50MCG (D3-2,000UNIT) TAB 50MCG MOUTH ACTIVE TWICE A DAY Indication: FOR VITAMIN D SUPPLEMENT Non-VA CYANOCOBALAMIN 1000MCG TAB 1000MCG MOUTH DAILY ACTIVE Indication: FOR VITAMIN B12 SUPPLEMENT Non-VA FAMOTIDINE 20MG TAB 20MG MOUTH TWICE A DAY ACTIVE NEEDED Indication: FOR STOMACH Non-VA GABAPENTIN TAB 100MG MOUTH FOUR TIMES A DAY ACTIVE Indication: FOR NERVE PAIN Non-VA LEUPROLIDE (ELIGARD) 45MG(6 MONTH)LA INJ 45MG (1 ACTIVE DOSE) UNDER THE SKIN ONCE Indication: FOR PROSTATE CANCER Non-VA METFORMIN HCL 500MG 24HR SA TAB 500MG MOUTH DAILY ACTIVE Indication: FOR BLOOD SUGAR Non-VA METHENAMINE HIPPURATE 1GM TAB 1GM MOUTH TWICE A DAY ACTIVE Indication: FOR INFECTION Non-VA OCRELIZUMAB INJ,SOLN INTO THE VEIN DIRECTED ACTIVE Indication: FOR MULTIPLE SCLEROSIS Non-VA POLYETHYLENE GLYCOL 3350 ORAL PWDR 17 GRAMS (ONE ACTIVE CAPFUL FILLED TO LINE) IN LIQUID MOUTH DAILY Indication: FOR CONSTIPATION Non-VA PRESERVISION AREDS VITAMIN 2 CAPSULES MOUTH DAILY ACTIVE Indication: UNKNOWN Non-VA PSYLLIUM 520MG CAP 1 CAPSULE MOUTH DAILY ACTIVE Indication: UNKNOWN Non-VA SILODOSIN 8MG ORAL CAP 8MG MOUTH DAILY ACTIVE Indication: FOR PROSTRATE 19 Total Medications Zbkq-zan-whkotic products used by patient: None per - Medications/OTC/supplements started and/or discontinued since last [facility] visit. Per [facility] medication records- Medication list compared with list/medication bottles in the home: No medication discrepancies were identified. Has the patient missed any doses since the last visit?* No Updated medication list was provided for the patient/caregiver: during the visit Education Provided: Education including regimen, indication for use, potential side effects, and interactions provided for the following medications: REviewed with patient and - Medication education and updated medication sheet provided to: Spouse Patient/caregiver indicated understanding by: Verbalization Medications set up by: Caregiver HOME SAFETY ASSESSMENT: No Unsound structure No Unsafe functional barriers (stairs, etc.) No Unsafe placement of rugs, cords, furniture No Weapons in the home N/A Weapons secured in an area away from the area of care provision No Inadequate Heating/Electricity No Inadequate Cooking Facilities No Inadequate Sleeping Arrangements No Inadequate Ventilation No Inadequate [place] No Unsafe Storage of Supplies/Equipment No Presence of Infestation of Pests Yes Functioning Smoke Alarm Present No Fire Extinguisher Present Yes Fire Exit Plan No Use of Restraints Yes Home is adaptable for Home Care No Smoking materials present in the home N/A Pets secured in an area away from the area of care provision No Additional safety concerns: Temperature: Temperature: 98.4 F (36.9 C) Pulse: Pulse: 60 Respirations: Respirations: 16 Blood Pressure: Blood Pressure: 126/64- monitors his BP- Pt is unable to be weighed in the home as he does not have full use of L foot. Does report significant weight gain over an unknown period of time. OXYGEN IN THE HOME: No PAIN EVALUATION: Patient answers Yes to Do you have pain? question. He reports pain in his right knee-kin like to see ortho-to see what can be done-says it is bone on bone and with his left leg weak due to the MS-he is not as mobile and independent as he would like to be- NEUROLOGICAL STATUS: No problems noted The patient is currently: Alert, Oriented to person, Oriented to place, Oriented to time, Oriented to situation, Pupils PEAR[employer] Education Provided: Review of s/s that need immediate medical attention (CVA, Head Trauma, Severe unrelieved headaches, seizures, ect...) Depression Screen: Over the last 2 WEEKS, how often have you been bothered by any of the following problems? Little interest or pleasure in doing things: not at all (0 points) Feeling down, depressed, or hopeless: not at all (0 points) Score: 0 Positive Screen = 3 or more Negative Screen = 2 and under Do you feel suicidal today? No CARDIOVASCULAR STATUS: Heart Sounds: Regular Pulses: Right Radial:Palpable Strong (+2) Left Radial: Palpable Strong (+2) Right Pedal: Palpable Strong (+2) Left Pedal: Palpable Strong (+2) Edema: No edema noted Education Provided: Reinforced diet recommendations, S/s of hyper/hypotension, take medications as prescribed, S/s that require immediate medication attention (s/s of acute VA, palpitations, ect...), Notify [facility] of new or worsening symptoms RESPIRATORY STATUS: Lung Sounds: Right Upper Lobe: Clear Right Middle Lobe: Clear Right Lower Lobe: Clear Left Upper Lobe: Clear Left Lower Lobe: Clear Cough: Nonproductive Education provided: GASTROINTESTINAL STATUS: Abdomen is: Flat Bowel Sounds: Normal Abdominal Pain: Describe: Bowel Movements: Normal Last BM: yesterday Frequency: every 2-3 days Patient has: constipation as times-has had for years-says he tke his psyllium powder as ordered and it does help. Other: NUTRITIONAL STATUS: Current Diet: Calorie Controlled/NCS/MICHELLE Appetite: Good Frequency of Meals: 3 meals/day-lunch usually sandwich and soup=then bigger meal at night- DIABETES: Frequency of hyper/hypoglycemic episodes:None Last A1C 6.4 02/06/24 Accucheck monitoring -No GENITOURINARY STATUS: Voiding without difficulty Comments: Urine Characteristics: Clear Patient has/uses: Urinal, Bathroom CHICHI SCORE: Chichi Scale Score:18 INTEGUMENTARY ASSESSMENT: Skin Color: Normal for ethnic group Skin Temperature: Warm Skin Moisture: Dry Skin Turgor: Within normal limits Skin Impairment: Yes: Location and Description: Wounds: Site 1: Location: coccyx Size: less than 1 cm Description: Wound care: cover wiht mepilex and pressure relief. MOBILITY: Patient is ambulatory with assistive devices: Rollator Patient extremety strength is: Weak left upper, Weak left lower FALLS: Have you fallen since last visit: No NURSING SUMMARY OF CARE: Reviewed poc and current interventions with patient and spouse-both voiced understanding and agreement. PROCEDURES/INTERVENTIONS: Medication Reconcilliation, Vital Signs, Assessment EDUCATION: Fall Prevention: Proper footwear, Safe use of assitive devices, Clutter free pathways, Safe placement of rugs and cords, Notify [facility] of falls Skin: Off-load pressure points, Use of barrier cream, Moisture dry skin, Keep clean and dry, Notify [facility] of changes in skin integrity, Wound care:mepilex as needed to coccyx Neuro: Notify [facility] of change in mental status, syncope, new or worsening, symptoms) Cardiopulmonary: (new onset CP, CP unrelieved with NTG, chest pressure, CP that radiates to left side/neck/jaw, new or worsening SOB, new onset or worsening palpitations, cyanosis) Hypentension: s/s of hyper/hypotension, Notify [facility] of extreme changes in BP GI/: Use of laxatives/stool softeners Diabetes: Diet recommendations, Medication compliance, s/s of hyper/hypoglycemia and treatment, Footcare, Notify [facility] of uncontrolled blood glucose Patient/Caregiver: Receptive to education Patient/caregiver indicates understanding of education by: Comments: Skilled nurse in home to teach on HTN Diabetes MS skin care-constipation- Next routine visit in 4-6 weeks. PCP, fracture right Fibula is now healed-he would like a consult regarding a possible knee replacement is he is eliglble-or other alternatives-he stated his knee is bone on bone and with his left leg weak due to the MS this decreases his mobility and indepence. asking about repeat labs-she stated that they were told he was slightly anemic and needed to follow up on that-that was in Nov=advised would speak with PCP and labs could be obtained at home. No other needs at this time. /es/ LYNN ALCOCER RN Signed: 04/21/2024 17:08 Receipt Acknowledged By: 04/22/2024 07:56 /rosette/ YULISSA HENDERSON APRN ADVANCED PRACTICE REGISTERED NURSE, [facility] YULISSA HENDERSON-[facility] Apr 21, 2024 04:43 PM HB NURSING NOTE: LOCAL TITLE: [facility] NURSING PROGRESS STANDARD TITLE: [facility] NURSING NOTE DATE OF NOTE: APR 21, 2024@16:43 ENTRY DATE: APR 21, 2024@16:43:14 AUTHOR: LYNN ALCOCER EXP COSIGNER: URGENCY: STATUS: COMPLETED [facility] NURSING PROGRESS Has ADDENDA [facility] FOLLOW-UP NOTE Date of visit: Mar Time spent with patient: 60 min Date of admission to [facility]: Patient Identified by: Name, SS, Facial Recognition, Known Address Source of Information: Patient, Spouse What matter most to you in your life right now? I want to be able to do somethings for myself MEDICATIONS: Active Medications: Active Outpatient Medications (including Supplies): BRIEF,TRANQ ALEX OVERNITE XL#2117 PULLUP USE 1 BRIEF ACTIVE DIRECTED THREE TIMES A DAY Indication: FOR INCONTINENCE GLOVE VINYL MEDIUM PWDR-FREE NONSTERILE USE GLOVE ACTIVE DIRECTED FOUR TIMES A DAY Indication: CLEANING UNDERPAD,BED [id number] TRANQUILITY-2710 USE UNDERPAD ACTIVE DIRECTED THREE TIMES A DAY NEEDED Non-VA ASPIRIN 81MG CHEW TAB 81MG MOUTH DAILY ACTIVE Indication: FOR HEART Non-VA ATORVASTATIN CALCIUM TAB 20MG 20MG MOUTH AT BEDTIME ACTIVE Indication: FOR CHOLESTEROL Non-VA BISOPROLOL FUMARATE 5MG TAB 5MG MOUTH DAILY ACTIVE Indication: FOR BLOOD PRESSURE/HEART Non-VA CHOLECALCIF 10MCG (D3-400UNIT) TAB 10MCG MOUTH ACTIVE DAILY Indication: FOR VITAMIN D SUPPLEMENT Non-VA CHOLECALCIF 50MCG (D3-2,000UNIT) TAB 50MCG MOUTH ACTIVE TWICE A DAY Indication: FOR VITAMIN D SUPPLEMENT Non-VA CYANOCOBALAMIN 1000MCG TAB 1000MCG MOUTH DAILY ACTIVE Indication: FOR VITAMIN B12 SUPPLEMENT Non-VA FAMOTIDINE 20MG TAB 20MG MOUTH TWICE A DAY ACTIVE NEEDED Indication: FOR STOMACH Non-VA GABAPENTIN TAB 100MG MOUTH FOUR TIMES A DAY ACTIVE Indication: FOR NERVE PAIN Non-VA LEUPROLIDE (ELIGARD) 45MG(6 MONTH)LA INJ 45MG (1 ACTIVE DOSE) UNDER THE SKIN ONCE Indication: FOR PROSTATE CANCER Non-VA METFORMIN HCL 500MG 24HR SA TAB 500MG MOUTH DAILY ACTIVE Indication: FOR BLOOD SUGAR Non-VA METHENAMINE HIPPURATE 1GM TAB 1GM MOUTH TWICE A DAY ACTIVE Indication: FOR INFECTION Non-VA OCRELIZUMAB INJ,SOLN INTO THE VEIN DIRECTED ACTIVE Indication: FOR MULTIPLE SCLEROSIS Non-VA POLYETHYLENE GLYCOL 3350 ORAL PWDR 17 GRAMS (ONE ACTIVE CAPFUL FILLED TO LINE) IN LIQUID MOUTH DAILY Indication: FOR CONSTIPATION Non-VA PRESERVISION AREDS VITAMIN 2 CAPSULES MOUTH DAILY ACTIVE Indication: UNKNOWN Non-VA PSYLLIUM 520MG CAP 1 CAPSULE MOUTH DAILY ACTIVE Indication: UNKNOWN Non-VA SILODOSIN 8MG ORAL CAP 8MG MOUTH DAILY ACTIVE Indication: FOR PROSTRATE 19 Total Medications Mnck-taw-lmsavor products used by patient: None per - Medications/OTC/supplements started and/or discontinued since last [facility] visit. Per [facility] medication records- Medication list compared with list/medication bottles in the home: No medication discrepancies were identified. Has the patient missed any doses since the last visit?* No Updated medication list was provided for the patient/caregiver: during the visit Education Provided: Education including regimen, indication for use, potential side effects, and interactions provided for the following medications: REviewed with patient and - Medication education and updated medication sheet provided to: Spouse Patient/caregiver indicated understanding by: Verbalization Medications set up by: Caregiver HOME SAFETY ASSESSMENT: No Unsound structure No Unsafe functional barriers (stairs, etc.) No Unsafe placement of rugs, cords, furniture No Weapons in the home N/A Weapons secured in an area away from the area of care provision No Inadequate Heating/Electricity No Inadequate Cooking Facilities No Inadequate Sleeping Arrangements No Inadequate Ventilation No Inadequate [place] No Unsafe Storage of Supplies/Equipment No Presence of Infestation of Pests Yes Functioning Smoke Alarm Present No Fire Extinguisher Present Yes Fire Exit Plan No Use of Restraints Yes Home is adaptable for Home Care No Smoking materials present in the home N/A Pets secured in an area away from the area of care provision No Additional safety concerns: Temperature: Temperature: 98.4 F (36.9 C) Pulse: Pulse: 60 Respirations: Respirations: 16 Blood Pressure: Blood Pressure: 126/64- monitors his BP- Pt is unable to be weighed in the home as he does not have full use of L foot. Does report significant weight gain over an unknown period of time. OXYGEN IN THE HOME: No PAIN EVALUATION: Patient answers Yes to Do you have pain? question. He reports pain in his right knee-kin like to see ortho-to see what can be done-says it is bone on bone and with his left leg weak due to the MS-he is not as mobile and independent as he would like to be- NEUROLOGICAL STATUS: No problems noted The patient is currently: Alert, Oriented to person, Oriented to place, Oriented to time, Oriented to situation, Pupils PEAR[employer] Education Provided: Review of s/s that need immediate medical attention (CVA, Head Trauma, Severe unrelieved headaches, seizures, ect...) Depression Screen: Over the last 2 WEEKS, how often have you been bothered by any of the following problems? Little interest or pleasure in doing things: not at all (0 points) Feeling down, depressed, or hopeless: not at all (0 points) Score: 0 Positive Screen = 3 or more Negative Screen = 2 and under Do you feel suicidal today? No CARDIOVASCULAR STATUS: Heart Sounds: Regular Pulses: Right Radial:Palpable Strong (+2) Left Radial: Palpable Strong (+2) Right Pedal: Palpable Strong (+2) Left Pedal: Palpable Strong (+2) Edema: No edema noted Education Provided: Reinforced diet recommendations, S/s of hyper/hypotension, take medications as prescribed, S/s that require immediate medication attention (s/s of acute VA, palpitations, ect...), Notify [facility] of new or worsening symptoms RESPIRATORY STATUS: Lung Sounds: Right Upper Lobe: Clear Right Middle Lobe: Clear Right Lower Lobe: Clear Left Upper Lobe: Clear Left Lower Lobe: Clear Cough: Nonproductive Education provided: GASTROINTESTINAL STATUS: Abdomen is: Flat Bowel Sounds: Normal Abdominal Pain: Describe: Bowel Movements: Normal Last BM: yesterday Frequency: every 2-3 days Patient has: constipation as times-has had for years-says he tke his psyllium powder as ordered and it does help. Other: NUTRITIONAL STATUS: Current Diet: Calorie Controlled/NCS/MICHELLE Appetite: Good Frequency of Meals: 3 meals/day-lunch usually sandwich and soup=then bigger meal at night- DIABETES: Frequency of hyper/hypoglycemic episodes:None Last A1C 6.4 02/06/24 Accucheck monitoring -No GENITOURINARY STATUS: Voiding without difficulty Comments: Urine Characteristics: Clear Patient has/uses: Urinal, Bathroom CHICHI SCORE: Chichi Scale Score:18 INTEGUMENTARY ASSESSMENT: Skin Color: Normal for ethnic group Skin Temperature: Warm Skin Moisture: Dry Skin Turgor: Within normal limits Skin Impairment: Yes: Location and Description: Wounds: Site 1: Location: coccyx Size: less than 1 cm Description: Wound care: cover wiht mepilex and pressure relief. MOBILITY: Patient is ambulatory with assistive devices: Rollator Patient extremety strength is: Weak left upper, Weak left lower FALLS: Have you fallen since last visit: No NURSING SUMMARY OF CARE: Reviewed poc and current interventions with patient and spouse-both voiced understanding and agreement. PROCEDURES/INTERVENTIONS: Medication Reconcilliation, Vital Signs, Assessment EDUCATION: Fall Prevention: Proper footwear, Safe use of assitive devices, Clutter free pathways, Safe placement of rugs and cords, Notify [facility] of falls Skin: Off-load pressure points, Use of barrier cream, Moisture dry skin, Keep clean and dry, Notify [facility] of changes in skin integrity, Wound care:mepilex as needed to coccyx Neuro: Notify [facility] of change in mental status, syncope, new or worsening, symptoms) Cardiopulmonary: (new onset CP, CP unrelieved with NTG, chest pressure, CP that radiates to left side/neck/jaw, new or worsening SOB, new onset or worsening palpitations, cyanosis) Hypentension: s/s of hyper/hypotension, Notify [facility] of extreme changes in BP GI/: Use of laxatives/stool softeners Diabetes: Diet recommendations, Medication compliance, s/s of hyper/hypoglycemia and treatment, Footcare, Notify [facility] of uncontrolled blood glucose Patient/Caregiver: Receptive to education Patient/caregiver indicates understanding of education by: Comments: Skilled nurse in home to teach on HTN Diabetes MS skin care-constipation- Next routine visit in 4-6 weeks. PCP, fracture right Fibula is now healed-he would like a consult regarding a possible knee replacement is he is eliglble-or other alternatives-he stated his knee is bone on bone and with his left leg weak due to the MS this decreases his mobility and indepence. asking about repeat labs-she stated that they were told he was slightly anemic and needed to follow up on that-that was in Nov=advised would speak with PCP and labs could be obtained at home. No other needs at this time. /rosette/ LYNN ALCOCER RN Signed: 04/21/2024 17:08 Receipt Acknowledged By: 04/22/2024 07:56 /rosette/ YULISSA HENDERSON APRN ADVANCED PRACTICE REGISTERED NURSE, [facility] 04/30/2024 ADDENDUM STATUS: COMPLETED will need trial of anti- inflammatory and physical therapy as well as imaging prior to ortho consult. [place] new to [place] and has no imaging on file. Plan: start meloxicam 7.5 mg QHS. If pain not controlled on this dose, will consider increasing to 15 mg. HH pt ordered for strengthening/gait training/painful right knee when HH is completed will order xrays. Cierra please call the to inform. pharmacy please expedite meloxicam. /rosette/ YULISSA HENDERSON APRN ADVANCED PRACTICE REGISTERED NURSE, [facility] Signed: 04/30/2024 10:07 Receipt Acknowledged By: 04/30/2024 12:06 /rosette/ YULISSA KWOK PHARMD Pharmacy Water Purifier Operator, Delivery Coord. 05/04/2024 ADDENDUM STATUS: COMPLETED CM please see provider's recommendations above. /rosette/ Indu Moreno RN RN [facility] Signed: 05/04/2024 11:27 Receipt Acknowledged By: 05/04/2024 13:02 /rosette/ LYNN ALCOCER RN 05/04/2024 ADDENDUM STATUS: COMPLETED Called and was able to reach -she stated that PT was starting and the meloxicam had arrived-however she had not started it because he paper insert stated that it would interact with his atorvastatin-and maybe his blood pressure medicine- Janae please advise on the above concern regarding the meloxicam. /rosette/ LYNN ALCOCER RN Signed: 05/04/2024 16:41 Receipt Acknowledged By: 05/05/2024 07:55 /rosette/ Janae Ceja, Pharm.D., B.C.P.S Clinical Pharmacist - [facility] 05/05/2024 ADDENDUM STATUS: COMPLETED Called pt's regarding meloxicam safety profile with other medications and disease states: - meloxicam + ASA: inc'd bleed risk - meloxicam + bisoprolol: may increase BP - meloxicam + metformin: may inc risk of JIMBO - meloxicam + HF: inc'd risk of HF exacerbation - meloxicam + CV disease: inc'd risk of CV events Reviewed that, of the non-steroidal medications, this is a more selective medication for pain and has less risk for GI bleed, CV events, etc. She says that Mr. Perdomo does not have pain sitting. He would not be willing to have a knee replacement, but was interested in knee injections. Advised that he would need to try this medication or similar prior to consideration for knee injections at the [place]. Still, she does not think he will take this medication after reading the risks in the package insert. We discussed other options: topical medications, APAP. He does have Voltaren gel in the home and uses that with good effect. He also is using a knee brace that helps. Will add nonVA diclofenac gel to med list; advised this can be sent from [place] when needed if they would like. Dc'd meloxicam from med list, likely will not take. Sent [facility] medication return bag for any medications to discard. /rosette/ Janae Ceja, Pharm.D., B.C.P.S Clinical Pharmacist - [facility] Signed: 05/05/2024 10:08 Receipt Acknowledged By: * AWAITING SIGNATURE * LYNN ALCOCER * AWAITING SIGNATURE * YULISSA HENDERSON EDITH F [place]
--- OUTSIDE RECORDS SUMMARY | 2024-07-08 08:54 | XMS_ITS | Data Portability ---
Author Organization [facility] [place] & KEELY Dawson ADMIN Address [address] [place] [id number] Assessment No assessment recorded. Plan of Treatment Reminders Order Date Submit Date Provider Last Modified By Organization Details Last Modified Time Details Appointments None recorded. Lab urinalysis , dipstick 2022 023 [facility] [place] Not available 12:25:51 culture, urine 2022 023 [facility] (Lab Registration) , [address] [place] [address], [address], 3 12:25:51 Referral None recorded. Procedures None recorded. Surgeries None recorded. Imaging None recorded. Medication Orders ciprofloxa ann-marie 500 mg tablet 2022 023 [facility], [address] [place] [address], [address], 3 14:13:24 Ciprodex 0.3 %-0.1 % ear drops,susp ension 2021 022 [facility], [address] [place] [address], [address], 2 09:50:14 doxycyclin e hyclate 100 mg tablet 2021 022 [facility], [address] [place] [address], [address], 3 14:09:10 Patient TargetsNo targets recorded. Patient InstructionsNo instructions recorded. Reason for Referral None Reported. Results Created Date Observation Date Name Description Value Unit Range Abnormal Flag Note LastModifiedBy Organization Detail LastModifiedTime 06/11/19 23 06/10/2022 CULTU RE URINE results LT 06-11 633 >100, 000 COL/M L Gram Posit rani Cocci Not Available [facility] (Lab Registration) [address], [place], [address], 06/11/2022 06:35:52 06/11/19 23 06/10/2022 CULTU RE URINE note Unles s other junior noted testi ng perfo rmed at: [facility] [address] [place] [address] [phone] Benedicto mccann MD CLIA: [id number] Not Available [facility] (Lab Registration) [address], [place], [address], 06/11/2022 06:35:52 06/11/19 23 06/10/2022 CULTU RE URINE culccur ===== ===== ===== ===== ===== ===== ===== ===== ===== ===== ===== ===== ===== ===== ===== ===== ===== ===== ===== ===== ===== ===== ===== ===== Speci men NO.: [id number] Exam Statu s: Final Proce dure: CULTU RE URINE ===== ===== ===== ===== ===== ===== ===== ===== ===== ===== ===== ===== ===== ===== ===== ===== ===== ===== ===== ===== ===== ===== ===== ===== Iso/R esult : 01 Enter ococc us faeca lis Antim icrob ic/Do se AKILAH Syste akilah Urine __ ___ ___ Ampic illin <=2 S S Cipro floxa ann-marie >2 R R Dapto mycin <=0.5 S S Levof loxac in >4 R R Nitro furan toin <=32 S S Penic illin 2 S S Tetra cycli ne >8 R R Vanco mycin 2 S S LT 06-11 633 >100, 000 COL/M L Gram Posit rani Cocci Not Available [facility] (Lab Registration) [address] , [place], [address], 06/12/2022 07:59:18 06/11/19 23 06/10/2022 CULTU RE URINE note Unles s other junior noted testi ng perfo rmed at: [facility] [address] [place] [address] [phone] Benedicto mccann MD CLIA: [id number] Not Available [facility] (Lab Registration) [address] , [place], [address], 06/12/2022 07:59:18 06/11/19 23 06/10/2022 urina lysis , dipst ick Leukocytes (reference range) small Not Available [address], [address], 06/10/2022 09:58:29 06/11/19 23 06/10/2022 urina lysis , dipst ick Nitrite (reference range:) positi ve Not Available [address], [address], 06/10/2022 09:58:29 06/11/19 23 06/10/2022 urina lysis , dipst ick Urobilinogen (reference range) 2 Not Available [address], [place], [address], 06/10/2022 09:58:29 06/11/19 23 06/10/2022 urina lysis , dipst ick Protein (reference range) negati ve Not Available [address], [address], 06/10/2022 09:58:29 06/11/19 23 06/10/2022 urina lysis , dipst ick pH (reference range 5-8.5) 7.0 Not Available [address], [address], 06/10/2022 09:58:29 06/11/19 23 06/10/2022 urina lysis , dipst ick Blood (reference range:) negati ve Not Available [address], [place], [address], 06/10/2022 09:58:29 06/11/19 23 06/10/2022 urina lysis , dipst ick Specific Pierson (reference range) 1.015 Not Available [address], [address], 06/10/2022 09:58:29 06/11/19 23 06/10/2022 urina lysis , dipst ick Ketone (reference range) negati ve Not Available [address], [address], 06/10/2022 09:58:29 06/11/19 23 06/10/2022 urina lysis , dipst ick Bilirubin (reference range) negati ve Not Available [address], [address], 06/10/2022 09:58:29 0306/10/2022 urina lysis , dipst ick Glucose (reference range) negati ve Not Available [address], [address], 06/10/2022 09:58:29 06/11/1906/10/2022 urina lysis , dipst ick Color (reference range: yellow-brown ) Yellow Not Available [address], [address], 06/10/2022 09:58:29 Result Notes None recorded. Medical Equipment None Reported. Allergies No known drug allergies Medications Name Sig Start Date Stop Date Status Note LastModified by Organization Details LastModified Time bicalutamid e 50 mg tablet TAKE 1 TABLET BY MOUTH ONCE DAILY active Not Available Not Available No t Available doxycycline hyclate 100 mg capsule TAKE 1 CAPSULE BY MOUTH TWICE DAILY FOR 10 DAYS 01/25 completed Not Available Not Available Not Available atorvastati n 20 mg tablet TAKE 1 TABLET BY MOUTH ONCE DAILY FOR 90 DAYS active Not Available Not Available No t Available oxybutynin chloride ER 10 mg tablet,exte nded release 24 hr active Not Available Not Available Not Available ciprofloxac in 500 mg tablet Take 1 tablet every 12 hours by oral route for 5 days. 06/21 completed Not Available Not Available Not Available bisoprolol fumarate 5 mg tablet TAKE 1 TABLET BY MOUTH ONCE DAILY active Not Available Not Available No t Available famotidine 20 mg tablet TAKE 1 TABLET BY MOUTH TWICE DAILY active Not Available Not Available No t Available tamsulosin 0.4 mg capsule TAKE 1 CAPSULE BY MOUTH ONCE DAILY active Not Available Not Available No t Available hydrocodone 7.5 mg-acetamin ophen 325 mg tablet active Not Available Not Available No t Available gabapentin 300 mg capsule TAKE 1 CAPSULE BY MOUTH AT NIGHT active Not Available Not Available No t Available gabapentin 100 mg capsule Take 1 capsule by mouth 4 times daily 2022 active Not Available Not Available Not Avai lable levofloxaci n 500 mg tablet TAKE 1 TABLET BY MOUTH EVERY 24 HOURS FOR 5 DAYS 01/25 completed Not Available Not Available Not Available metformin ER 500 mg tablet,exte nded release 24 hr TAKE 1 TABLET BY MOUTH WITH EVENING MEAL 2022 active Not Available Not Available Not Avai lable doxycycline hyclate 100 mg tablet Take 1 tablet twice a day by oral route. 06/21 completed Not Available Not Available Not Available finasteride 5 mg tablet TAKE 1 TABLET BY MOUTH ONCE DAILY FOR 90 DAYS active Not Available Not Available No t Available amoxicillin 875 mg-potassiu m clavulanate 125 mg tablet TAKE 1 TABLET BY MOUTH EVERY 12 HOURS FOR 7 DAYS active Not Available Not Available No t Available neomycin-po lymyxin-hyd rocort 3.5 mg-10,000 unit/mL-1 % ear drops,susp active Not Available Not Available N ot Available Ciprodex 0.3 %-0.1 % ear drops,suspe nsion INSTILL 4 DROPS INTO AFFECTED EAR(S) BY OTIC ROUTE 2 TIMES PER DAY FOR 7 DAYS 2021 active Not Available Not Available Not Avai lable alfuzosin ER 10 mg tablet,exte nded release 24 hr TAKE 1 TABLET BY MOUTH ONCE DAILY AT SUPPER TIME active Not Available Not Available No t Available nitrofurant oin monohydrate /macrocryst als 100 mg capsule TAKE 1 CAPSULE BY MOUTH EVERY 12 HOURS FOR 7 DAYS active Not Available Not Available No t Available Paxlovid 300 mg (150 mg x 2)-100 mg tablets in a dose pack 01/25 completed Not Available Not Available Not Available Vitals Date Recorded Body height Body mass index (BMI) Body weight Body temperature Oxygen saturation Oxygen saturation in Arterial blood by Pulse oximetry Heart rate Respiratory rate Systolic blood pressure Diastolic blood pressure Provider Name and Address Organization Details Last Updated DateTime 2 175.26 cm 36.4 kg/m2 903692. 16 g 97.5 [degF] 97 % 97 % 64 /min 18 /min 152 mm[Hg] 69 mm[Hg] Ana WILKINS [facility] [place] [facility] [place] 2 09:26:07 Social History Question Answer Notes LastModified by Organizat ion Details LastModified Time Tobacco Smoking Status Never Smoker Not Available [facility] 06/11/2022 16:08:24 What Is Your Level Of Alcohol Consumption? None CHART_MERGE Information not available 06/11/2022 What Is Your Level Of Caffeine Consumption? None CHART_MERGE Information not available 06/11/2022 Do You Use Any Illicit Or Recreational Drugs? No CHART_MERGE Information not available 06/11/2022 Has Tobacco Cessation Counseling Been Provided? No CHART_MERGE Information not available 06/11/2022 Do You Or Have You Ever Used Any Other Forms Of Tobacco Or Nicotine? No CHART_MERGE Information not available 06/11/2022 Sex: Unknown Functional Status None recorded. Mental Status None recorded. Family History Nothing Reported. Medical History No medical history recorded. Immunizations Vaccine Type Date Status Note Provider Nam e and Address Organization Details Recorded Time Influenza, injectable,rosemarie valent, preservative free, pediatric 1 completed Not Available [facility] 06/11/2022 16:08:25 Influenza, split virus, quadrivalent, preservative 0 completed Not Available [facility] 06/11/2022 16:08:25 Influenza, adjuvanted, trivalent, PF 9 completed Not Available [facility] 06/11/2022 16:08:25 Influenza, high-dose, quadrivalent, PF 2 completed Ana Villagran [facility] & [place] 01/25/2022 10:04:21 Past Encounters Encounter ID Performer Location Encounter Start Date Encounter Closed Date Diagnosis/Indication Diagnosis SNOMED-CT Code Diagnosis ICD10 Code Diagnosis Note [id number] Marcelino Mobley MD [address] [address] 01/25/2022 09:11:20 01/28/2022 11:29:19 Administration of influenza vaccine 61280287 Z23 Acute sero us otitis media of right ear 3068892989 872978 H65.01 [id number] PASQUALE ROBERT NP [address] [address] 06/10/2022 09:41:28 06/10/2022 10:01:08 Acute cystitis 09405836 N30.00 Health Concerns Section Related Observation LastModified by Organization Detai ls LastModified Time None Recorded Concern Status LastModified by Organization Details LastModified Time None Recorded Advance Directives Directive None Recorded Payers Encounter Date Sequence Insurance Name Policy Number Policy Munoz Covered Member ID Munoz Member ID Guarantor Name 01/25/2022 1 [place] [employer] [place] [id number] [employer] [place] 01/25/2022 2 [employer] - OPTIONS [employer] [place] [id number] [employer] [place] 06/10/2022 1 [place] David Ellen [place] [id number] David A [place] 06/10/2022 2 [employer] - OPTIONS [employer] [place] [id number] David Ellen Juliet Notes Date Note Type Note Provider Name and Address Organization Details Recorded Time 01/25/2022 text/html Patient presents complaining of right ear pain. Marcelino Mobley MD [address] [place] [address], [phone] & [place] 01/25/2022 12:39:29
--- OUTSIDE RECORDS SUMMARY | 2024-07-08 08:54 | XMS_ITS | Encounter Summary ---
Author Name [facility] Address [address] [place] [address] Care Team Providers Care Gel Coater Name Role Phone YULISSA HENDERSON Primary Care [...] PLAN F Mar 24, 2014 PLAN F [id number] LUIS MANUEL PERDOMO PATIENT [facility] [place] [employer] PREFERRED PROVIDER ORGANIZAT ION (PPO) [facility] Sep 21, 2012 [id number] LUIS MANUEL PERDOMO PATIENT [employer] ([id number]) PRESCRIPT ION [id number] Sep 21, 2012 [id number] LUIS MANUEL PERDOMO PATIENT MEDICARE (WNR) MEDICARE (M) PART B Sep 21, 2012 PART B [id number] [phone] NOEMI PERDOMO PATIENT MEDICARE (WNR) MEDICARE (M) PART A Jan 22, 2011 PART A [id number] NOEMI PERDOMO PATIENT MEDICARE PART D (WNR) MEDICARE (M) PART D Mar 24, 2014 PART D [id number] LUIS MANUEL PERDOMO PATIENT Selected Encounter This section includes the information on record at [place] for the Encounter. Date/Time Encounter Type Encounter Description Reason Pro vider Source Jul 07, 2024 10:18 AM Outpatient Encounter ADMIN PAT ACTIVTIES (MASNONCT) IHE Encounter Template Text not used by DC Plan of Treatment: Future Appointments (+ 6 months) and Future Tests (+/- 45 days) The Plan of Treatment section includes future care activities for the patient from all [place] treatmentfacilities. This section includes future appointments and future orders which are active, pending or scheduled. Future Appointments This section includes appointments that were scheduled to occur 6 months from the date of the Encounter, up to a maximum of 20 appointments. The data comes from all [facility] facilities. Appointment Date/Time Appointment Type Appointme nt Facility Name August 19, 2024 01:20 PM [facility] Active, Pending, and Scheduled Orders This section includes a listing of several types of active, pending, and scheduled orders, including clinic medications orders, diagnostic test orders, procedure orders and consult orders; where the start date of the order is 45 days before the date of the Encounter or 45 days after the date of theEncounter. The data comes from all [facility]. Test Date/Time Test Type Test Details Facility Name Jun 08, 2024 11:04 AM Consult Order ORTHO KNEE OUTPATIENT Cons Printer Maintainer's Choice [facility] Social History: Smoking Status (Most current) and Tobacco Use (All prior to encounter date) This section includes the most current, and the historical, smoking and tobacco- related health factors from the [place] facility where the Encounter took place. Current Smoking Status This section includes the most current smoking, or tobacco-related health factor, from the [place] facility where the Encounter took place. Date/Time Current Smoking Status Comment Gabriel ity Feb 06, 2024 10:00 AM VA-TOBACCO USER SOME DAYS [facility] Tobacco Use History This section includes a history of the smoking, or tobacco-related health factors, that were collected on or before the date of the Encounter. The data comes from the [place] facility where the Encounter took place. Date/Time Smoking Status/Tobacco Use Comment F acility Feb 06, 2024 10:00 AM VA-TOBACCO USE 30 YEARS OR MORE [facility] Feb 06, 2024 10:00 AM VA-TOBACCO USE ADVICE [facility] Feb 06, 2024 10:00 AM VA-TOBACCO USE WILDLIFE BIOLOGY INTERNSHIP NO [facility] Feb 06, 2024 10:00 AM VA-TOBACCO USE MED NO [facility] Feb 06, 2024 10:00 AM VA-TOBACCO USER SOME DAYS [facility] Advance Directives: All historical and current Section Date Range: From patient's date of to the date document was created. This section includes ALL of a patient's completed or amended [place] Advance and Rescinded Directives. The entries below indicate that a directive exists for the patient, but an actual copy is not included with this document. The data comes from all [place] facilities. Date Advance Directives Provider Source Mar 08, 2024 ADVANCE DIRECTIVE DISCUSSION [facility] Encounter Notes: All associated encounter notes This section contains the clinical notes associated to the Encounter. Date/Time Encounter Note(s) Provider Source May 18, 2024 10:18 AM NONVA NOTE: LOCAL TITLE: OUTSIDE MEDICAL RECORD-FEE OUTPATIENT STANDARD TITLE: NONVA NOTE DATE OF NOTE: MAY 18, 2024@10:18 ENTRY DATE: JUL 07, 2024@10:18:48 AUTHOR: DARLENE LANDEROS EXP COSIGNER: URGENCY: STATUS: COMPLETED The scanned document may be viewed in [employer]. /rosette/ DARLENE LANDEROS RESOURCE DEVELOPMENT DIRECTOR Signed: 07/07/2024 10:19 [facility]
--- OUTSIDE RECORDS SUMMARY | 2024-07-08 08:54 | XMS_ITS | Data Portability ---
Author Organization [facility], [employer] Address [address] [facility] [address] [place] [address] Assessment Encounter Date Assessment Date Assessment LastModified by Organization Details LastModified Time 05/27/2023 05/27/2023 45 mins spent on visit w/ pt, chart review, care coordination and counseling The care of this patient was conducted under the direct supervision of Shana Power MD, [email or web address] Not available 05/27/2023 14:58:03 Plan of Treatment Reminders Order Date Submit Date Provider Last Modified By Organization Details Last Modified Time Details Appointments None record ed. Lab None record ed. Referral None record ed. Procedures None record ed. Surgeries None record ed. Imaging None record ed. Medication Orders None record ed. Patient TargetsNo targets recorded. Patient InstructionsNo instructions recorded. Reason for Referral None Reported. Problems Name Problem SNOMED Code Status Onset Date Resolution Date Notes Provider Name and Address Organization Details Recorded Time Multiple sclerosis 07231704 Active 2023 NILO SEPULVEDA_APR N [address] [place] [address], [place], [address], [employer] 4 13:14:21 Degenerative disorder of macula 051705063 Active 2023 NILO BIROS_APR N [address] [place] [address], [address], [employer] 4 13:14:30 Essential hypertension 57029484 Active 2023 NILO SAWYEROS_APR N [address] [place] [address], [address], [employer] 4 13:15:45 Hyperlipidemia 92828926 Active 2023 NILO SAWYEROS_APR N [address] [place] [address], [address], [employer] 4 13:15:51 Restless legs 82604425 Active 2023 NILO SEPULVEDA_APR N [address], [place], [address], [employer] 4 13:16:26 Gastroesophage al reflux disease 759465892 Active 2023 NILO BIREMILY_APR N [address], [place], [address], [employer] 4 13:16:32 Hyperglycemia 04788232 Active 2023 NILO SEPULVEDA_APR N [address], [place], [address], [employer] 4 13:16:43 Carcinoma of prostate 244117717 Active 2023 NILO SEPULVEDA_APR N [address], [place], [address], [employer] 4 13:27:34 Constipation 59771297 Active 2023 NILO SEPULVEDA_APR N [address], [place], [address], [employer] 4 13:35:34 Problem Notes None recorded. Medical Equipment None Reported. Allergies No known drug allergies Medications Name Sig Start Date Stop Date Status Note LastModified by Organization Details LastModified Time atorvastat in 20 mg tablet TAKE 1 TABLET BY MOUTH ONCE DAILY active Not Available Not Available No t Available oxybutynin chloride ER 10 mg tablet,ext ended release 24 hr TAKE 1 TABLET BY MOUTH ONCE DAILY 05/26 completed Not Available Not Available Not Available ciprofloxa ann-marie 500 mg tablet TAKE 1 TABLET BY MOUTH EVERY 12 HOURS FOR 5 DAYS 05/26 completed Not Available Not Available Not Available aspirin 81 mg tablet,del ayed release Take 1 tablet every day by oral route. active Not Available Not Available No t Available bisoprolol fumarate 5 mg tablet TAKE 1 TABLET BY MOUTH ONCE DAILY active Not Available Not Available No t Available famotidine 20 mg tablet TAKE 1 TABLET BY MOUTH TWICE DAILY active Not Available Not Available No t Available gabapentin 100 mg capsule TAKE 2 CAPSULES BY MOUTH TWICE DAILY active Not Available Not Available No t Available Vitamin B-12 CR 1000 mcg tablet,ext ended release Take 1 tablet every day by oral route. active Not Available Not Available No t Available cefuroxime axetil 500 mg tablet TAKE 1 TABLET BY MOUTH EVERY 12 HOURS FOR 10 DAYS 05/26 completed Not Available Not Available Not Available metformin ER 500 mg tablet,ext ended release 24 hr TAKE 1 TABLET BY MOUTH ONCE DAILY active Not Available Not Available No t Available amoxicilli n 875 mg-potassi um clavulanat e 125 mg tablet TAKE 1 TABLET BY MOUTH EVERY 12 HOURS FOR 7 DAYS 05/26 completed Not Available Not Available Not Available alfuzosin ER 10 mg tablet,ext ended release 24 hr TAKE 1 TABLET BY MOUTH ONCE DAILY active Not Available Not Available No t Available nitrofuran toin monohydrat e/macrocry stals 100 mg capsule TAKE 1 CAPSULE BY MOUTH EVERY 12 HOURS FOR 7 DAYS 05/26 completed Not Available Not Available Not Available solifenaci n 10 mg tablet TAKE 1 TABLET BY MOUTH ONCE DAILY active Not Available Not Available No t Available PreserVisi on AREDS take 1 tab daily active Not Available Not Available No t Available Vitamin D3 50 mcg (2,000 unit) capsule Take 1 capsule by oral route. active Not Available Not Available No t Available Ocrevus 30 mg/mL intravenou s solution Inject 600 mg as needed by intraven ous route. active EVERY 6 MONTHS Not Available Not Available Not Available polyethyle ne glycol 1000 take 17g daily in am active Not Available Not Available No t Available Vitals Date Recorded Body weight Body mass index (BMI) Body height Provider Name and Address Organization Details Last Updated DateTime 05/27/2023 349954.09 g 36.9 kg/m2 175.26 cm NILO PLASENCIA [address] [place] [address], [place], [address], [place] - [employer] 05/27/2023 13:15:34 Social History None recorded. Functional Status None recorded. Mental Status None recorded. Family History Nothing Reported. Medical History No medical history recorded. Past Encounters Encounter ID Performer Location Encounter Start Date Encounter Closed Date Diagnosis/Indication Diagnosis SNOMED-CT Code Diagnosis ICD10 Code Diagnosis Note [id number] NILO PLASENCIA [facility] [address] [facility] [address] [place] [address] 05/27/2023 14:55:50 05/27/2023 14:58:47 Constipation 66640765 K59.00 Cont daily Miralax and prn stool softener. Carcinoma of prostate 25 3174289 C61 Cont biannual injections of prostate cancer Degenerati ve disorder of macula 539561282 H35.30 Cont injections per opthalmolo gy. Essential hypertension 72072868 I10 Cont current bisoprolol . Gastroesop hageal reflux disease 202105250 K21.9 Avoid trigger foods. Eat small meals and avoid carbonated beverages. Avoid laying down for 2 hours after meals. Hyperglycemia 29627677 R 73.9 Cont metformin. NCS diet. Hyperlipidemia 96035665 E78.5 Cont atorvastat in. Multiple sclerosis 19072 007 G35 Cont biannual infusions of Ocrevus. Follow with neurology. Restless legs 70499833 G 25.81 Cont gabapnetin . Body mass index 30+ - obesity 652470755 Z68.36 Encouraged weight loss with a combinatio n of lifestyle and dietary modificati ons. Adult heal th examination 695257012 Z00.00 Chronic care management / Remote patient monitoring was discussed with patient during visit. Pt wishes to participat e in CCM/RPM. Health goals and care plans discussed with patient and optimized based on patient's wishes, current health state, resources available and goals of care. Provider recommenda tions and extensive counseling given to patient, start to follow on CCM/RPM at this time. CCM program services described to patient. Possible cost sharing explained to patient in context of those with secondary insurances will likely have no out of pocket costs and per CMS guidelines CCM may help avoid costly services in the future by proactivel y managing patient health, rather than only treating severe or acute disease and illness. Patient confirms at this time is not participia ting in CCM/RPM with another provider. Patient understand s can stop RPM/CCM services at any time. Health Concerns Section Related Observation LastModified by Organization Detai ls LastModified Time None Recorded Concern Status LastModified by Organization Details LastModified Time None Recorded Advance Directives Directive None Recorded Payers Encounter Date Sequence Insurance Name Policy Number Policy Munoz Covered Member ID Munoz Member ID Guarantor Name 05/27/2023 1 [place] - [facility] David Chung [id number] Med Chung Notes Date Note Type Note Provider Name and Address Organization Details Recorded Time 05/27/2023 text/html 78 yo M The patient was seen remotely via telemedicine using either a 2-way live phone call or video. The method of visit was based on the patient's preference or their inability to use video. Verbal informed consent was obtained from the patient or their caregiver before the visit. Encounter today to establish care. Prostate Cancer - pt getting injections every 6 months for prostate cancer. BP checked daily at home. Pt's seen on 05/15/23 at pt's PCP office was unable to get pt out of the home. ' states she is struggling to get him to appts and lab draws. Pt was recently treated for a UTI. Symptoms included low BP, weakness, unable to walk, malodorous urine. Wears a depends. Recent PCP visit summary available for review during today's visit. NILO SEPULVEDA_APRN [address] [place] [address], [phone], [employer] 05/27/2023 14:58:27
--- OUTSIDE RECORDS SUMMARY | 2024-07-08 08:54 | XMS_ITS | Encounter Summary ---
Author Name [facility] [place] [facility] [place] [facility] Address [address] [place] [address] Care Team Providers Care Carding Supervisor Name Role Phone YULISSA HENDERSON Primary [...] PLAN F Mar 24, 2014 PLAN F [id number] LUIS MANUEL PERDOMO PATIENT [facility] [place] [facility] PREFERRED PROVIDER ORGANIZAT ION (PPO) [facility] Sep 21, 2012 [id number] LUIS MANUEL PERDOMO PATIENT [employer] ([id number]) PRESCRIPT ION [id number] Sep 21, 2012 [id number] [phone] LUIS MANUEL PERDOMO PATIENT MEDICARE (WNR) MEDICARE (M) PART B Sep 21, 2012 PART B [id number] NOEMI PERDOMO PATIENT MEDICARE (WNR) MEDICARE (M) PART A Jan 22, 2011 PART A [id number] NOEMI PERDOMO PATIENT MEDICARE PART D (WNR) MEDICARE (M) PART D Mar 24, 2014 PART D [id number] LUIS MANUEL PERDOMO PATIENT Selected Encounter This section includes the information on record at [place] for the Encounter. Date/Time Encounter Type Encounter Description Reason Provider Source Mar 19, 2024 10:26 AM QNHP OL DIG ASSMT&MGMT 21+ [facility] - CLINICAL PHARMACIST ICD-10-CM Z79.899 Other [facility] (current) drug therapy DONNA CEJA [facility] Encounter Template Text not used by [place] Assessments - Encounter Diagnoses This section includes the primary and secondary diagnoses documented for the Encounter. Date/Time Primary/Secondary Diagnosis Diagnosis Name Provider Source Mar 19, 2024 11:03 AM PRIMARY Other [facility] Plan of Treatment: Future Appointments (+ 6 months) and Future Tests (+/- 45 days) The Plan of Treatment section includes future care activities for the patient from all [place] treatmentfacilities. This section includes future appointments and future orders which are active, pending or scheduled. Future Appointments This section includes appointments that were scheduled to occur 6 months from the date of the Encounter, up to a maximum of 20 appointments. The data comes from all [place] treatment facilities. Appointment Date/Time Appointment Type Appointme nt Facility Name May 05, 2024 08:00 AM AMBULATORY - NONE [place] [facility] August 19, 2024 01:20 PM AMBULATORY - SURGERY [place] [facility] Advance Directives: All historical and current Section Date Range: From patient's date of to the date document was created. This section includes ALL of a patient's completed or amended [place] Advance and Rescinded Directives. The entries below indicate that a directive exists for the patient, but an actual copy is not included with this document. The data comes from all [place] facilities. Date Advance Directives Provider Source Mar 08, 2024 ADVANCE DIRECTIVE DISCUSSION [facility] Encounter Notes: All associated encounter notes This section contains the clinical notes associated to the Encounter. Date/Time Encounter Note(s) Provider Source Mar 19, 2024 10:26 AM PHARMACY HOME [facility] NOTE: LOCAL TITLE: [facility] PHARMACY NOTE STANDARD TITLE: PHARMACY HOME [facility] NOTE DATE OF NOTE: MAR 19, 2024@10:26 ENTRY DATE: MAR 19, 2024@10:26:55 AUTHOR: DONNA CEJA EXP COSIGNER: URGENCY: STATUS: COMPLETED PMH: 1. Gastroesophageal reflux disease without esophagitis 2. Constipation 3. Multiple sclerosis 4. Age related macular degeneration 5. Closed fracture of shaft of right fibula 6. Incontinence 7. Type 2 diabetes mellitus 8. Essential hypertension 9. Hyperlipidemia 10. Carcinoma of prostate 11. Pain of right knee joint Allergies: Patient has answered NKA VS: SVS - Vital Signs Selected Measurement DT BP TEMP RESP PULSE POx F(C) (L/MIN)(%) 03/04/2024 11:00 140/76 97.4(36.3) 14 66 Measurement DT WEIGHT LB(KG)[BMI] 03/04/2024 11:00 251(113.85)[37*] Immunizations: IM - Immunizations ADMINISTERED Immunization Series Date Facility Reaction Info HEP A, ADULT 2 09/01/2018 [facility] HEP A, ADULT 1 12/29/2017 [facility] HEPB-CPG 2 11/26/2018 [facility] HEPB-CP[facility] 1 10/29/2018 [facility] INFLUENZA, UNSPECIFIED FORMULATI* 01/05/2024 Home [facility] 1 01/04/2019 [facility] CONTRAINDICATED No data available REFUSED ======= No data available * Value is truncated; see the Detailed Immunizations Health Summary Component[DIM] for complete text Medications: Active and Recently Outpatient Medications (including Supplies): Active Outpatient Medications Status 1) BRIEF,TRANQ ALEX OVERNITE XL#8667 PULLUP USE 1 BRIEF ACTIVE DIRECTED THREE TIMES A DAY Indication: FOR INCONTINENCE 2) GLOVE VINYL MEDIUM PWDR-FREE NONSTERILE USE GLOVE ACTIVE DIRECTED FOUR TIMES A DAY Indication: CLEANING 3) UNDERPAD,BED [id number] TRANQUILITY-2710 USE UNDERPAD ACTIVE DIRECTED THREE TIMES [...] 02/06/24 12:24 136 154 H 37 L GLYCOHEMOGLOBIN (HPLC) 02/06/24 12:24 6.4 TSH: 0.6365 [...] for BW) Lipid Goal: moderate-dose statin (DM+HTN) BP Goal: <140/90 (DM) - met A1c Goal: <8% (age/comorbidities) - met Medication Outcomes VA meds: NONE NonVA meds: ASPIRIN 81MG CHEW TAB DAILY: cardiprotection in DM ATORVASTATIN CALCIUM TAB 20MG AT BEDTIME: cardioprotection BISOPROLOL FUMARATE 5MG TAB DAILY: BLOOD PRESSURE/HEART CHOLECALCIF 10MCG (D3-400UNIT) TAB DAILY: VITAMIN D SUPPLEMENT CHOLECALCIF 50MCG (D3-2,000UNIT) TAB 50MCG TWICE A DAY: VITAMIN D SUPPLEMENT CYANOCOBALAMIN 1000MCG TAB DAILY: VITAMIN B12 SUPPLEMENT FAMOTIDINE 20MG TAB TWICE A DAY [...] DAILY: constipation SILODOSIN 8MG ORAL CAP DAILY: PROSTRATE *NonVA Uro Dr. Dave Diamond *NonVA PCP Bertha Allen in [place] New therapies/medication changes since last Pharmacy review: INITIAL REVIEW - pays copay - Medications set up by: Caregiver RECENT MED CHANGES: - none - per 03/04 RN note: He is also concerned about a couple of his medications-silodosin and znwtsnnjrry-krxqmqvmj-nuyd are costly and his stated he voids so much that he stays damp and she knows that is what caused the area on his backside-patient is aksing if maybe something he could take that does the samething-he realizes that might not be the case. Plan/recommendations: 1. Problem list: - recommend to d/c cholecalciferol; 25OHD level high, no indication - recommend to d/c cyanocobalamin; B12 level high, no indication 2. Immunizations: recommend COVID vaccination [id number], PCV20, Tdap, Shingrix dose #2 3. Med rec: All meds nonVA, pays copay. Reviewing for formulary equivalents if needed ASPIRIN 81MG CHEW TAB DAILY: cardiprotection in DM - formulary ATORVASTATIN CALCIUM TAB 20MG AT BEDTIME: cardioprotection - formulary BISOPROLOL FUMARATE 5MG TAB DAILY: BLOOD PRESSURE/HEART - formulary CHOLECALCIF 10MCG (D3-400UNIT) TAB DAILY: VITAMIN D SUPPLEMENT - d/c CHOLECALCIF 50MCG (D3-2,000UNIT) TAB 50MCG TWICE A DAY: VITAMIN D SUPPLEMENT - d/c CYANOCOBALAMIN 1000MCG TAB DAILY: VITAMIN B12 SUPPLEMENT - d/c FAMOTIDINE 20MG TAB TWICE A DAY NEEDED: GERD - formulary GABAPENTIN TAB 100MG FOUR TIMES A DAY: NERVE PAIN - formulary LEUPROLIDE (ELIGARD) 45MG(6 MONTH)LA INJ 45MG: PROSTATE CANCER - Urology METFORMIN HCL 500MG 24HR SA TAB DAILY: DM - formulary METHENAMINE HIPPURATE 1GM TAB TWICE A DAY: UTI px - formulary OCRELIZUMAB INJ,SOLN INTO THE VEIN DIRECTED: MULTIPLE SCLEROSIS - NF/Neuro POLYETHYLENE GLYCOL 3350 ORAL PWDR 17 GRAMS DAILY: CONSTIPATION - formulary PRESERVISION AREDS VITAMIN 2 CAPSULES DAILY: ARMD - AREDS req consult PSYLLIUM 520MG CAP 1 CAPSULE DAILY: constipation - formulary SILODOSIN 8MG ORAL CAP DAILY: PROSTRATE - NF, tamsulosin preferred 4. Med rec/duplications: - Miralax and psyllium for constipation; evaluate need for both 5. Labs: up to date 6. PIMs per 2022 [place] Criteria: none MEDICATIONS CONTRIBUTING TO FALL RISK Cardiac, antihypertensives, diuretic: bisoprolol Antipsychotics, hypnotics: Antidepressant/antihistamine: Antianxiety [not buspirone]: Muscle relaxants: Narcotic analgesic: Anticonvulsant: gabapentin NSAID: Hypoglycemic: OTHER: silodosin Medications that increase bleed risk: ASA 81mg medications for review: none Medications were reviewed by Pharm.D. for therapeutic indications as well as appropriate dosing for renal function when current labs available and not enrolled in hospice care. Continue to review quarterly. Time Spent Reviewing Chart: 30 min PBM PharmD Pharmacotherapy Rem V12: Medication monitoring or diagnostic evaluation (e.g., other labs, EKG) Medication reconciliation (changes to active VA and non-VA medication lists to reconcile differences) Changes to medication lists made Discontinue or remove medication Order, recommend, and/or administer immunization(s) /jeannette Ceja, Pharm.D., B.C.P.S Clinical Pharmacist - [place] Signed: 03/19/2024 11:03 Receipt Acknowledged By: 03/19/2024 14:33 /es/ VIRGIE CALZADA, RN PAULETTE RN for LYNN ALCOCER 03/19/2024 14:47 /es/ YULISSA HENDERSON APRN ADVANCED PRACTICE REGISTERED NURSE, DONNA KASPER-CDD [facility]
--- OUTSIDE RECORDS SUMMARY | 2024-07-08 08:54 | XMS_ITS | Data Portability ---
Author Organization CLAUDETTE KATHIE Mancilla EUGENE CLOSED Address [address] [facility] [address] [address] [place] [address] Care Team Providers Care Staff Development Manager Name Role Phone NICK NOLASCO Primary Care Provider [phone] Assessment Encounter Date Assessment Date Assessment LastModified by Organization Details LastModified Time 05/29/2023 05/29/2023 Alfuzosin for lower urinary symptoms. Return to the office with PSA and Lupron. 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 Spastic paraparesis 4. Impaired gait, uses 4 post walker 5. Neurogenic urinary bladder dysfunction 6 IgG level 670 August, I do not see the 2022 IgG level Plan 1. I will mail blood requisition request to their house to make blood tests early next week quantitative immunoglobulin s, CBC, CMP, TSH 2. He is scheduled for Ocrevus infusion at [facility] outpatient on September 07 per 's report 3. follow up with me in 6 months [address] telehealth [address] Jennifer Saab in [place] [email or web address] Not available 08/26/2023 09:21:23 10/16/2023 10/16/2023 Urine for culture and sensitivity. Antifungal/jeet roid cream for jock itch. [email or web address] Not available 11/02/2023 15:23:50 12/04/2023 12/04/2023 Urine for culture and sensitivity Antifungal/jeet roid cream for jock itch, improved not resolved Androgen deprivation therapy for prostate carcinoma Methenamine for UTI suppression. [email or web address] Not available 12/04/2023 19:36:35 02/24/2024 02/24/2024 1. Multiple sclerosis 2. Disabled adult 3. Disabled walking, uses walker 4. Spastic paraparesis gait 5. Needs assist for some personal care 6. snf current drug therapy on Ocrevus 7. High risk medication, monitoring needed for safety Plan 1. Submit blood tests CBC, CMP, IgG today or tomorrow in our lab 2. Ocrevus is scheduled Mar 08 or 3. I will call with blood test results 4. I advised I retire Apr 23 5. Follow up in [address] Tiarra Pratt [email or web address] Not available 02/24/2024 13:30:01 Plan of Treatment Reminders Order Date Submit Date Provider Last Modified By Organization Details Last Modified Time Details Appointments RECHECK 2024 02:15P Mellissa DIAMOND MD Not available Not available Not available NEUROLOGY RECHECK 2024 10:15A Mellissa PRATT DO Not available Not available Not available Lab CBC w/ auto diff 2023 024 [facility], [address] [place] [address], [id number], 02/24/2024 12:27:49 CMP, serum or plasma 2023 024 [facility], [address] [place] [address], [id number], 02/24/2024 11:55:24 igg, quantitat rani, serum 2023 024 [facility], [address] [place] [address], [id number], 02/24/2024 11:55:21 urinalysi s panel, auto 2023 024 4 [facility] [place] [facility] With [facility], [address] [place] [address] [address], [place], [address], 12/05/2023 13:50:22 culture, urine 2023 024 [email or web address] 4 [facility], [address] [place] [address], [address], 12/05/2023 13:50:22 urinalysi s panel, auto 2023 024 [email or web address] 4 [facility] Services With [facility], [address] [place] [address] Dr [address], [place], [address], 10/16/2023 15:13:59 culture, urine 2023 024 [email or web address] 4 [facility], [address] [place] [address], [address], 10/26/2023 12:36:11 PSA, total, serum or plasma 2023 024 [email or web address] [facility], [address] [place] [address], [address], 06/27/2023 14:53:37 Referral None recorded. Procedures None recorded. Surgeries None recorded. Imaging None recorded. Medication Orders methenami ne hippurate 1 gram tablet [address] [facility], [address] [place] [address], [id number], 02/24/2024 08:16:51 clotrimaz ole-betam ethasone 1 %-0.05 % topical cream 2023 024 [facility], [address] [place] [address], [id number], 02/24/2024 08:18:51 Diflucan 150 mg tablet 2023 024 [facility], [address] [place] [address], [id number], 02/24/2024 08:18:55 silodosin 8 mg capsule 2023 024 [email or web address] 4 [facility], [address] [place], [address], 12/05/2023 13:50:22 clotrimaz ole-betam ethasone 1 %-0.05 % topical cream 2023 024 [email or web address] [facility], [address] [place], [address], 02/24/2024 08:14:59 silodosin 8 mg capsule 2023 024 [facility], [address] [place], [address], 10/16/2023 15:21:57 Patient TargetsNo targets recorded. Patient Instructions Encounter Date Encounter Id Patient Instructions Last Modified By Organization Details Last Modified Time 08/26/2023 [id number] CATEGORY DESCRIPTION MINUTES Prepare to see the patient (e.g. review of tests) review past med records, review 2022 lab results 5 Obtain/review separately obtained history Perform medically appropriate exam/evaluation Order medications, tests, or procedures will mail lab requisition to patient to complete in her local hospital outpatient services 5 Legend Maker/educate the patient/family/car egiver Telehealth connection for 11 minutes 10 Refer/communicate w/other healthcare professionals Document clinical information into health record 5 Non-billable independent interp of results Non-billable care coordination TOTAL TIME 25 [id number] (15-29) 26810 (30-44) 35124 (45-59) 35735 (60-74) 26573 (10-19) 69967 (20-29) 09850 (30-39) 76681 (40-54) [email or web address] Not available 08/26/2023 09:03:40 12/04/2023 [id number] learning about healthy weight [email or web address] Not available 12/04/2023 13:49:18 Reason for Referral None Reported. Results Created Date Observation Date Name Description Value Unit Range Abnormal Flag Note LastModifiedBy Organization Detail LastModifiedTime 05/01/19 24 05/05/2023 URINE CULTU RE urine culture COLONY COUNT: > 100,00 0 CFU/ML Minute alpha colony . Not Available [facility] [address] [place] [address], [address], 05/05/2023 13:11:39 05/01/19 24 05/01/2023 urina lysis panel , auto Unknown Analyte Clean Catch Not Available [facility] With [address], [place], [address], 05/01/2023 15:43:07 05/01/19 24 05/01/2023 urina lysis panel , auto Unknown Analyte Yellow Not Available formerly [facility] With [address], [place], [address], 05/01/2023 15:43:07 05/01/19 24 05/01/2023 urina lysis panel , auto Unknown Analyte Clear Not Available formerly [facility] With [address] [place], [address], 05/01/2023 15:43:07 05/01/19 24 05/01/2023 urina lysis panel , auto Unknown Analyte 1.025 Not Available formerly [facility] With [address], [place], [address], 05/01/2023 15:43:07 05/01/19 24 05/01/2023 urina lysis panel , auto Unknown Analyte 1.003- 1.035 Not Available [facility] With [address], [place], [address], 05/01/2023 15:43:07 05/01/19 24 05/01/2023 urina lysis panel , auto Unknown Analyte 5.0 Not Available formerly [facility] With [address], [place], [address], 05/01/2023 15:43:07 05/01/19 24 05/01/2023 urina lysis panel , auto Unknown Analyte 5.0-8. 0 Not Available [facility] With [address] [place], [address], 05/01/2023 15:43:07 05/01/19 24 05/01/2023 urina lysis panel , auto Unknown Analyte 500 Ade/ul (++) Not Available [facility] With [address] [place], [address], 05/01/2023 15:43:07 05/01/19 24 05/01/2023 urina lysis panel , auto Unknown Analyte Negati ve Not Available [facility] With [address] [place], [address], 05/01/2023 15:43:07 05/01/19 24 05/01/2023 urina lysis panel , auto Unknown Analyte Negati ve Not Available [facility] With [address] [place], [address], 05/01/2023 15:43:07 05/01/19 24 05/01/2023 urina lysis panel , auto Unknown Analyte Negati ve Not Available [facility] With [address] [place], [address], 05/01/2023 15:43:07 05/01/19 24 05/01/2023 urina lysis panel , auto Unknown Analyte 30 mg/dl (+) Not Available [facility] With [address] [place], [address], 05/01/2023 15:43:07 05/01/19 24 05/01/2023 urina lysis panel , auto Unknown Analyte Negati ve Not Available [facility] With [address] [place], [address], 05/01/2023 15:43:07 05/01/19 24 05/01/2023 urina lysis panel , auto Unknown Analyte >1000 mg/dl Not Available [facility] With [address] [place], [address], 05/01/2023 15:43:07 05/01/19 24 05/01/2023 urina lysis panel , auto Unknown Analyte Normal Not Available formerly [facility] With [address] [place], [address], 05/01/2023 15:43:07 05/01/19 24 05/01/2023 urina lysis panel , auto Unknown Analyte Negati ve Not Available [facility] With [address] [place], [address], 05/01/2023 15:43:07 05/01/19 24 05/01/2023 urina lysis panel , auto Unknown Analyte Negati ve Not Available [facility] With [address] [place], [address], 05/01/2023 15:43:07 05/01/19 24 05/01/2023 urina lysis panel , auto Unknown Analyte 4 mg/dl Not Available [facility] With [address] [place], [address], 05/01/2023 15:43:07 05/01/19 24 05/01/2023 urina lysis panel , auto Unknown Analyte Normal 1 mg/dl Not Available [facility] With [address] [place], [address], 05/01/2023 15:43:07 05/01/19 24 05/01/2023 urina lysis panel , auto Unknown Analyte Negati ve Not Available [facility] With [address], [place], [address], 05/01/2023 15:43:07 05/01/19 24 05/01/2023 urina lysis panel , auto Unknown Analyte Negati ve Not Available [facility] With [address], [place], [address], 05/01/2023 15:43:07 05/01/19 24 05/01/2023 urina lysis panel , auto Unknown Analyte 50 Russell/ul Not Available [facility] With [address], [place], [address], 05/01/2023 15:43:07 05/01/19 24 05/01/2023 urina lysis panel , auto Unknown Analyte Negati ve Not Available [facility] With [address], [place], [address], 05/01/2023 15:43:07 10/16/19 24 10/16/2023 URINE CULTU RE enterococcus faecalis Organi sm: Entero coccus faecal is Not Available [facility] [address] [place], [address], 10/20/2023 10:51:39 10/16/19 24 10/20/2023 URINE CULTU RE urine culture abnormal ISOLA TE #1 COLON Y COUNT : > 100,0 00 CFU/M L Proba ble Strep tococ cus sp.; ID and sensi tivit y in progr ess. Enter ococc us faeca lis Not Available [facility] [address] [place], [address], 10/20/2023 10:51:39 10/16/19 24 10/20/2023 URINE CULTU RE ampicillin <=2 ug/mL susceptib le Not Available [facility] [address] [place] [address], [address], 10/20/2023 10:51:39 10/16/19 24 10/20/2023 URINE CULTU RE ciprofloxaci n >2 ug/mL resistant Not Available [facility] [address] [place] [address], [address], 10/20/2023 10:51:39 10/16/19 24 10/20/2023 URINE CULTU RE levofloxacin >4 ug/mL resistant Not Available [facility] [address] [place] [address], [address], 10/20/2023 10:51:39 10/16/19 24 10/20/2023 URINE CULTU RE nitrofuranto in <=32 ug/mL susceptib le Not Available [facility] [address] [place] [address], [address], 10/20/2023 10:51:39 10/16/19 24 10/20/2023 URINE CULTU RE penicillin 2 ug/mL susceptib le Not Available [facility] [address] [place] [address], [address], 10/20/2023 10:51:39 10/16/19 24 10/20/2023 URINE CULTU RE rifampin 2 ug/mL intermedi ate Not Available [facility] [address] [place] [address], [address], 10/20/2023 10:51:39 10/16/19 24 10/20/2023 URINE CULTU RE tetracycline >8 ug/mL resistant Not Available [facility] [address] [place] [address], [address], 10/20/2023 10:51:39 10/16/19 24 10/20/2023 URINE CULTU RE vancomycin 1 ug/mL susceptib le Not Available [facility] [address] [place] [address], [address], 10/20/2023 10:51:39 10/16/19 24 10/16/2023 urina lysis panel , auto Unknown Analyte Clean Catch Not Available [facility] With [address], [place], [address], 10/16/2023 15:07:53 10/16/19 24 10/16/2023 urina lysis panel , auto Unknown Analyte Yellow Not Available formerly [facility] With [address] [place], [address], 10/16/2023 15:07:53 10/16/19 24 10/16/2023 urina lysis panel , auto Unknown Analyte Cloudy Not Available formerly [facility] With [address] [place], [address], 10/16/2023 15:07:53 10/16/19 24 10/16/2023 urina lysis panel , auto Unknown Analyte 1.015 Not Available formerly [facility] With [address], [place], [address], 10/16/2023 15:07:53 10/16/19 24 10/16/2023 urina lysis panel , auto Unknown Analyte 1.003- 1.035 Not Available [facility] With [address] [place], [address], 10/16/2023 15:07:53 10/16/19 24 10/16/2023 urina lysis panel , auto Unknown Analyte 6.0 Not Available formerly [facility] With [address] [place], [address], 10/16/2023 15:07:53 10/16/19 24 10/16/2023 urina lysis panel , auto Unknown Analyte 5.0-8. 0 Not Available [facility] With [address] [place], [address], 10/16/2023 15:07:53 10/16/19 24 10/16/2023 urina lysis panel , auto Unknown Analyte 500 Ade/ul (++) Not Available [facility] With [address] [place], [address], 10/16/2023 15:07:53 10/16/19 24 10/16/2023 urina lysis panel , auto Unknown Analyte Negati ve Not Available [facility] With [address] [place], [address], 10/16/2023 15:07:53 10/16/19 24 10/16/2023 urina lysis panel , auto Unknown Analyte Negati ve Not Available [facility] With [address] [place], [address], 10/16/2023 15:07:53 10/16/19 24 10/16/2023 urina lysis panel , auto Unknown Analyte Negati ve Not Available [facility] With [address] [place], [address], 10/16/2023 15:07:53 10/16/19 24 10/16/2023 urina lysis panel , auto Unknown Analyte Negati ve Not Available [facility] With [address] [place], [address], 10/16/2023 15:07:53 10/16/19 24 10/16/2023 urina lysis panel , auto Unknown Analyte Negati ve Not Available [facility] With [address] [place], [address], 10/16/2023 15:07:53 10/16/19 24 10/16/2023 urina lysis panel , auto Unknown Analyte Normal Not Available formerly [facility] With [address], [place], [address], 10/16/2023 15:07:53 10/16/19 24 10/16/2023 urina lysis panel , auto Unknown Analyte Normal Not Available formerly [facility] With [address] [place], [address], 10/16/2023 15:07:53 10/16/19 24 10/16/2023 urina lysis panel , auto Unknown Analyte Negati ve Not Available [facility] With [address] [place], [address], 10/16/2023 15:07:53 10/16/19 24 10/16/2023 urina lysis panel , auto Unknown Analyte Negati ve Not Available [facility] With [address], [place], [address], 10/16/2023 15:07:53 10/16/19 24 10/16/2023 urina lysis panel , auto Unknown Analyte 1 mg/dl Not Available [facility] With [address] [place], [address], 10/16/2023 15:07:53 10/16/19 24 10/16/2023 urina lysis panel , auto Unknown Analyte Normal 1 mg/dl Not Available [facility] With [address] [place], [address], 10/16/2023 15:07:53 10/16/19 24 10/16/2023 urina lysis panel , auto Unknown Analyte Negati ve Not Available [facility] With [address], [place], [address], 10/16/2023 15:07:53 10/16/19 24 10/16/2023 urina lysis panel , auto Unknown Analyte Negati ve Not Available [facility] With [address], [place], [address], 10/16/2023 15:07:53 10/16/19 24 10/16/2023 urina lysis panel , auto Unknown Analyte 50 Russell/ul Not Available [facility] With [address], [place], [address], 10/16/2023 15:07:53 10/16/19 24 10/16/2023 urina lysis panel , auto Unknown Analyte Negati ve Not Available [facility] With [address], [place], [address], 10/16/2023 15:07:53 12/04/19 24 12/04/2023 URINE CULTU RE klebsiella pneumoniae Organi sm: Klebsi pedro pneumo niae Not Available [facility] [address] [place] [address], [address], 12/08/2023 08:01:35 12/04/19 24 12/06/2023 URINE CULTU RE urine culture abnormal ISOLA TE #1 COLON Y COUNT : > 100,0 00 CFU/M L Proba ble Gram Negat rani Bacil lu. ID and sensi tivit y in progr ess. See [place] te Resul t(s) Below Klebs iella pneum oniae Not Available [facility] [address] [place], [address], 12/08/2023 08:01:35 12/04/19 24 12/06/2023 URINE CULTU RE amox/K clav'ate(C) <=8/4 ug/mL susceptib le Not Available [facility] [address] [place] [address], [address], 12/08/2023 08:01:35 12/04/19 24 12/06/2023 URINE CULTU RE cefazolin <=2 ug/mL susceptib le Not Available [facility] [address] [place] [address], [address], 12/08/2023 08:01:35 12/04/19 24 12/06/2023 URINE CULTU RE ceftazidime <=1 ug/mL susceptib le Not Available [facility] [address] [place] [address], [address], 12/08/2023 08:01:35 12/04/19 24 12/06/2023 URINE CULTU RE ceftriaxone <=1 ug/mL susceptib le Not Available [facility] [address] [place] [address], [address], 12/08/2023 08:01:35 12/04/19 24 12/06/2023 URINE CULTU RE cefuroxime <=4 ug/mL susceptib le Not Available [facility] [address] [place] [address], [address], 12/08/2023 08:01:35 12/04/19 24 12/06/2023 URINE CULTU RE ciprofloxaci n <=0.25 ug/mL susceptib le Not Available [facility] [address] [place] [address], [address], 12/08/2023 08:01:35 12/04/19 24 12/06/2023 URINE CULTU RE gentamicin <=4 ug/mL susceptib le Not Available [facility] [address] [place] [address], [address], 12/08/2023 08:01:35 12/04/19 24 12/06/2023 URINE CULTU RE imipenem <=1 ug/mL susceptib le Not Available [facility] [address] [place], [address], 12/08/2023 08:01:35 12/04/19 24 12/06/2023 URINE CULTU RE levofloxacin <=0.5 ug/mL susceptib le Not Available [facility] [address] [place] [address], [address], 12/08/2023 08:01:35 12/04/19 24 12/06/2023 URINE CULTU RE nitrofuranto in 64 ug/mL intermedi ate Not Available [facility] [address] [place] [address], [address], 12/08/2023 08:01:35 12/04/19 24 12/06/2023 URINE CULTU RE piperacillin /alex <=16 ug/mL susceptib le Not Available [facility] [address] [place] [address], [address], 12/08/2023 08:01:35 12/04/19 24 12/06/2023 URINE CULTU RE tetracycline <=4 ug/mL susceptib le Not Available [facility] [address] [place] [address], [address], 12/08/2023 08:01:35 12/04/19 24 12/06/2023 URINE CULTU RE tobramycin <=2 ug/mL susceptib le Not Available [facility] [address] [place] [address], [address], 12/08/2023 08:01:35 12/04/19 24 12/06/2023 URINE CULTU RE trimeth/sulf a <=2/38 ug/mL susceptib le Not Available [facility] [address] [place] [address], [address], 12/08/2023 08:01:35 12/04/19 24 12/04/2023 urina lysis panel , auto Unknown Analyte Clean Catch Not Available [facility] [place] [facility] With [address], [place], [address], 12/04/2023 12:12:20 12/04/19 24 12/04/2023 urina lysis panel , auto Unknown Analyte Yellow Not Available formerly [facility] With [address], [place], [address], 12/04/2023 12:12:20 12/04/19 24 12/04/2023 urina lysis panel , auto Unknown Analyte Cloudy Not Available formerly [facility] With [address], [place], [address], 12/04/2023 12:12:20 12/04/19 24 12/04/2023 urina lysis panel , auto Unknown Analyte 1.020 Not Available formerly [facility] With [address] [place], [address], 12/04/2023 12:12:20 12/04/19 24 12/04/2023 urina lysis panel , auto Unknown Analyte 1.003- 1.035 Not Available [facility] With [address], [place], [address], 12/04/2023 12:12:20 12/04/19 24 12/04/2023 urina lysis panel , auto Unknown Analyte 5.0 Not Available formerly [facility] With [address], [place], [address], 12/04/2023 12:12:20 12/04/19 24 12/04/2023 urina lysis panel , auto Unknown Analyte 5.0-8. 0 Not Available [facility] With [address], [place], [address], 12/04/2023 12:12:20 12/04/19 24 12/04/2023 urina lysis panel , auto Unknown Analyte 500 Ade/ul (++) Not Available [facility] With [address] [place], [address], 12/04/2023 12:12:20 12/04/19 24 12/04/2023 urina lysis panel , auto Unknown Analyte Negati ve Not Available [facility] With [address] [place], [address], 12/04/2023 12:12:20 12/04/19 24 12/04/2023 urina lysis panel , auto Unknown Analyte POSITI VE (Abnor mal) Not Available [facility] With [address] [place], [address], 12/04/2023 12:12:20 12/04/19 24 12/04/2023 urina lysis panel , auto Unknown Analyte Negati ve Not Available [facility] With [address] [place], [address], 12/04/2023 12:12:20 12/04/19 24 12/04/2023 urina lysis panel , auto Unknown Analyte Negati ve Not Available [facility] [address] [place], [address], 12/04/2023 12:12:20 12/04/19 24 12/04/2023 urina lysis panel , auto Unknown Analyte Negati ve Not Available [facility] [address] [place], [address], 12/04/2023 12:12:20 12/04/19 24 12/04/2023 urina lysis panel , auto Unknown Analyte Normal Not Available formerly [facility] [address] [place], [address], 12/04/2023 12:12:20 12/04/19 24 12/04/2023 urina lysis panel , auto Unknown Analyte Normal Not Available formerly [facility] [address] [place], [place], [address], 12/04/2023 12:12:20 12/04/19 24 12/04/2023 urina lysis panel , auto Unknown Analyte Negati ve Not Available [facility] [address] [place], [address], 12/04/2023 12:12:20 12/04/19 24 12/04/2023 urina lysis panel , auto Unknown Analyte Negati ve Not Available [facility] [address] [place], [address], 12/04/2023 12:12:20 12/04/19 24 12/04/2023 urina lysis panel , auto Unknown Analyte Normal Not Available formerly [facility] [address] [place], [place], [address], 12/04/2023 12:12:20 12/04/19 24 12/04/2023 urina lysis panel , auto Unknown Analyte Normal 1 mg/dl Not Available [facility] [address] [place], [address], 12/04/2023 12:12:20 12/04/19 24 12/04/2023 urina lysis panel , auto Unknown Analyte Negati ve Not Available [facility] [address] [place], [address], 12/04/2023 12:12:20 12/04/19 24 12/04/2023 urina lysis panel , auto Unknown Analyte Negati ve Not Available [facility] [address], [place], [address], 12/04/2023 12:12:20 12/04/19 24 12/04/2023 urina lysis panel , auto Unknown Analyte Negati ve Not Available [facility] [address], [place], [address], 12/04/2023 12:12:20 12/04/19 24 12/04/2023 urina lysis panel , auto Unknown Analyte Negati ve Not Available [facility] [address], [place], [address], 12/04/2023 12:12:20 02/24/20 24 02/24/2024 IGG IgG 768 mg/dL 700-16 00 normal Not Available [facility] [address] [place] [address], [address], 02/24/2024 11:55:21 02/24/20 24 02/24/2024 COMP. METAB OLIC PANEL glucose 144 mg/dL 74-100 high Not Available [facility] [address] [place] [address], [address], 02/24/2024 11:55:23 02/24/20 24 02/24/2024 COMP. METAB OLIC PANEL blood urea nitrogen 17 mg/dL 6-20 normal Not Available [facility] [address] [place] [address], [address], 02/24/2024 11:55:23 02/24/20 24 02/24/2024 COMP. METAB OLIC PANEL creatinine 0.94 mg/dL 0.70-1 .28 normal Not Available [facility] [address] [place] [address], [address], 02/24/2024 11:55:23 02/24/20 24 02/24/2024 COMP. METAB OLIC PANEL BUN/creatini ne ratio 18 (calc ) 10-20 normal Not Available [facility] [address] [place] [address], [address], 02/24/2024 11:55:23 02/24/20 24 02/24/2024 COMP. METAB OLIC PANEL sodium 132 mmol/ L 136-14 5 low Not Available [facility] [address] [place] [address], [address], 02/24/2024 11:55:23 02/24/20 24 02/24/2024 COMP. METAB OLIC PANEL potassium 4.3 mmol/ L 3.4-5. 0 normal Not Available [facility] [address] [place] [address], [address], 02/24/2024 11:55:23 02/24/20 24 02/24/2024 COMP. METAB OLIC PANEL chloride 99 mmol/ L 98-107 normal Not Available [facility] [address] [place] [address], [address], 02/24/2024 11:55:23 02/24/20 24 02/24/2024 COMP. METAB OLIC PANEL carbon dioxide 24 mmol/ L 22-31 normal Not Available [facility] [address] [place] [address], [address], 02/24/2024 11:55:23 02/24/20 24 02/24/2024 COMP. METAB OLIC PANEL anion gap 9 (calc ) 7-25 normal Not Available [facility] [address] [place] [address], [address], 02/24/2024 11:55:23 02/24/20 24 02/24/2024 COMP. METAB OLIC PANEL calcium 9.0 mg/dL 8.6-10 .2 normal Not Available [facility] [address] [place] [address], [address], 02/24/2024 11:55:23 02/24/20 24 02/24/2024 COMP. METAB OLIC PANEL total protein 6.4 g/dL 6.4-8. 3 normal Not Available [facility] [address] [place] [address], [address], 02/24/2024 11:55:23 02/24/20 24 02/24/2024 COMP. METAB OLIC PANEL albumin 3.6 g/dL 3.5-5. 2 normal Not Available [facility] [address] [place] [address], [address], 02/24/2024 11:55:23 02/24/20 24 02/24/2024 COMP. METAB OLIC PANEL globulin 2.8 1.5-4. 5 normal Not Available [facility] [address] [place] [address], [address], 02/24/2024 11:55:23 02/24/20 24 02/24/2024 COMP. METAB OLIC PANEL albumin/glob ulin ratio 1.3 (calc ) 1.1-2. 5 normal Not Available [facility] [address] [place] [address], [address], 02/24/2024 11:55:23 02/24/20 24 02/24/2024 COMP. METAB OLIC PANEL bilirubin, total 0.7 mg/dL 0.1-1. 2 normal Not Available [facility] [address] [place] [address], [address], 02/24/2024 11:55:23 02/24/20 24 02/24/2024 COMP. METAB OLIC PANEL alkaline phosphatase 144 U/L 40-129 high Not Available [facility] [address] [place] [address], [address], 02/24/2024 11:55:23 02/24/20 24 02/24/2024 COMP. METAB OLIC PANEL AST 12 U/L 0-40 normal Not Available [facility] [address] [place] [address], [address], 02/24/2024 11:55:23 02/24/20 24 02/24/2024 COMP. METAB OLIC PANEL ALT 20 U/L 0-41 normal Not Available [facility] [address] [place] [address], [address], 02/24/2024 11:55:23 02/24/20 24 02/24/2024 COMP. METAB OLIC PANEL GFR 83 >= 60 normal NOT E New calcu latio n for GFR (CKD- EPI 2020) is formu lated witho ut race adjus tment facto rs at the recom menda tion of the [facility] and [place] ty of Nephr ology . This calcu latio n has not been valid ated in pregn ant women . For pedia tric patie nts refer to https ://uma mora.rachna santo.o rg/pr juany sidhu s/KDO QI/gf r_cal culat orPed Not Available [facility] [address] [place] [address], [address], 02/24/2024 11:55:23 02/24/20 24 02/24/2024 COMPL ETE BLOOD COUNT white blood cells 9.6 10*3/ uL 3.8-10 .8 normal RESUL TS RECHE CKED Hemog mer obtai heather after warmi ng to 37 C. No moscoso e. Not Available [facility] [address] [place] [address], [address], 02/24/2024 12:27:49 02/24/20 24 02/24/2024 COMPL ETE BLOOD COUNT red blood cells 4.24 10*6/ uL 4.20-5 .80 normal Not Available [facility] [address] [place] [address], [address], 02/24/2024 12:27:49 02/24/20 24 02/24/2024 COMPL ETE BLOOD COUNT hemoglobin 12.4 g/dL 14.0-1 8.0 low Not Available [facility] [address] [place] [address], [address], 02/24/2024 12:27:49 02/24/20 24 02/24/2024 COMPL ETE BLOOD COUNT hematocrit 36.3 % 40.0-5 2.0 low Not Available [facility] [address] [place] [address], [address], 02/24/2024 12:27:49 02/24/20 24 02/24/2024 COMPL ETE BLOOD COUNT MCV 86 fL 80-100 normal Not Available [facility] [address] [place] [address], [address], 02/24/2024 12:27:49 02/24/20 24 02/24/2024 COMPL ETE BLOOD COUNT MCH 29 pg 26-35 normal Not Available [facility] [address] [place] [address], [address], 02/24/2024 12:27:49 02/24/20 24 02/24/2024 COMPL ETE BLOOD COUNT MCHC 34 g/dL 32-36 normal Not Available [facility] [address] [place] [address], [address], 02/24/2024 12:27:49 02/24/20 24 02/24/2024 COMPL ETE BLOOD COUNT RDW 15.1 % 11.0-1 5.0 high Not Available [facility] [address] [place] [address], [address], 02/24/2024 12:27:49 02/24/20 24 02/24/2024 COMPL ETE BLOOD COUNT MPV - fL 6.2-10 .5 abnormal Unabl e to obtai n instr ument MPV. Not Available [facility] [address] [place] [address], [address], 02/24/2024 12:27:49 02/24/20 24 02/24/2024 COMPL ETE BLOOD COUNT platelet count - 10*3/ uL 150-40 0 abnormal Unabl e to repor t instr ument plate let count due to plate let aggre gatio n in EDTA. Plate lets appea r: CLUMP ED If recol lecti on is lucia ed - pleas e order test code CPLT. Not Available [facility] [address] [place] [address], [address], 02/24/2024 12:27:49 02/24/20 24 02/24/2024 COMPL ETE BLOOD COUNT neutrophil,a bsolute 5.4 10*3/ uL 1.6-8. 4 normal Not Available [facility] [address] [place] [address], [address], 02/24/2024 12:27:49 02/24/20 24 02/24/2024 COMPL ETE BLOOD COUNT lymphocyte,a bsolute 2.7 10*3/ uL 0.4-5. 1 normal Not Available [facility] [address] [place] [address], [address], 02/24/2024 12:27:49 02/24/20 24 02/24/2024 COMPL ETE BLOOD COUNT monocyte,abs olute 0.6 10*3/ uL 0.0-1. 2 normal Not Available [facility] [address] [place] [address], [address], 02/24/2024 12:27:49 02/24/20 24 02/24/2024 COMPL ETE BLOOD COUNT eosinophil,a bsolute 0.7 10*3/ uL 0.0-0. 8 normal Not Available [facility] [address] [place] [address], [address], 02/24/2024 12:27:49 02/24/20 24 02/24/2024 COMPL ETE BLOOD COUNT basophil,abs olute 0.1 10*3/ uL 0.0-0. 3 normal Not Available [facility] [address] [place] [address], [address], 02/24/2024 12:27:49 02/24/20 24 02/24/2024 COMPL ETE BLOOD COUNT % neutrophils 56.8 % 42.0-7 8.0 normal Not Available [facility] [address] [place] [address], [address], 02/24/2024 12:27:49 02/24/20 24 02/24/2024 COMPL ETE BLOOD COUNT % lymphocytes 28.7 % 11.0-4 7.0 normal Not Available [facility] [address] [place] [address], [address], 02/24/2024 12:27:49 02/24/20 24 02/24/2024 COMPL ETE BLOOD COUNT % monocytes 6.0 % 0.0-11 .0 normal Not Available [facility] [address] [place] [address], [address], 02/24/2024 12:27:49 02/24/20 24 02/24/2024 COMPL ETE BLOOD COUNT % eosinophils 7.5 % 0.0-7. 0 high Not Available [facility] [address] [place] [address], [address], 02/24/2024 12:27:49 02/24/20 24 02/24/2024 COMPL ETE BLOOD COUNT % basophils 1.0 % 0.0-3. 0 normal Not Available [facility] [address] [place] [address], [address], 02/24/2024 12:27:49 02/24/20 24 02/24/2024 COMPL ETE BLOOD COUNT nucleated red cells 0.1 % 0.0-0. 9 normal Not Available [facility] [address] [place] [address], [address], 02/24/2024 12:27:49 02/24/20 24 02/24/2024 COMPL ETE BLOOD COUNT nucleated RBCs, absolute 0.01 10*3/ uL not estab. normal Not Available [facility] [address] [place] [address], [address], 02/24/2024 12:27:49 02/24/2002/24/2024 MORPH OLOGY anisocytosis MODERA TE abnormal Not Available [facility] [address] [place], [address], 02/24/2024 12:27:52 Result Notes None recorded. Problems Name Problem SNOMED Code Status Onset Date Resolution Date Notes Provider Name and Address Organization Details Recorded Time Nocturia 403046663 Active 2014 From Automated Load;Prov ider: LoboGarciain;St atus: Active Not Available [facility] 6 08:27:56 Lower urinary tract symptoms due to benign prostatic hypertrop hy 18799921883 101 Active 2014 From Automated Load;Prov ider: LoboGarciain;St atus: Active Not Available [facility] 6 08:27:56 Increased frequency of urination 699818568 Active 2014 From Automated Load;Prov ider: LoboGarciain;St atus: Active Not Available [facility] 6 08:27:56 Urge incontine nce of urine 50001571 Active 2015 From Automated Load;Prov ider: Lobo, Stacy;St atus: Active Not Available [facility] 6 08:27:56 Urgent desire to urinate 34265816 Active 2015 From Automated Load;Prov ider: LoboGarciain;St atus: Active Not Available [facility] 6 08:27:56 Multiple sclerosis 72410940 Active 2015 From Automated Load;Prov ider: Lobo Stacy;St atus: Active Not Available [facility] 6 08:27:56 Weakness of left arm 33042768695 675476 [facility] 10[facility]02 Edema 674765559 Active 2019 [facility] 0 07:35:39 Weakness of left leg 47553478419 341706 Active 2019 [facility] 0 07:35:40 Problem Notes None recorded. Procedures Surgical History Date Name Laterality Status Provider Name and Address Organization Details Recorded Time 12/04/19 24 Lupron Administration completed Murelene Tripp [facility] 12/04/2023 18:14:34 05/29/19 24 Lupron Administration completed Murelene Tripp [facility] 05/29/2023 13:00:54 11/29/19 23 Lupron Administration completed Murelene Tripp [facility] 11/28/2022 12:56:58 05/31/19 23 [facility] 14:30:56 05/23/19 22 [facility] 06/14/2021 15:48:50 03/24/19 14 [facility] 13:37:26 03/24/18 56 Appendectomy completed [facility] 07/28/2018 13:37:18 Imaging Results None recorded. Procedure Notes None recorded. Medical Equipment None Reported. Allergies No known drug allergies Medications Name Sig Start Date Stop Date Status Note LastModified by Organization Details LastModified Time atorvasta tin 20 mg tablet active Not Available Not Available Not Available oxybutyni n chloride ER 10 mg tablet,ex tended release 24 hr Take 1 tablet by mouth once daily 11/28 completed Not Available Not Available Not Available ampicilli n 500 mg capsule Take 1 capsule twice a day by oral route. 12/03 completed Not Available Not Available Not Available Lasix 40 mg tablet Daily 07/28 completed Frequenc y: daily;Al t Frequenc y: as direct.; Medicati on Descript ion: furosemi de; Dosage:1 ; Route:or al; refills: 0 Not Available Not Available Not Available Diflucan 150 mg tablet Take 1 tablet every day by oral route for 1 day. 02/23 completed Not Available Not Available Not Available tropicami de 1 % eye drops 07/28 completed Not Available Not Available Not Available simvastat in 40 mg tablet Daily 07/28 completed Not Available Not Available Not Available bisoprolo l fumarate 5 mg tablet Two times a day active Not Available Not Available No t Available methenami ne hippurate 1 gram tablet Take 1 tablet twice a day by oral route for 90 days. 2023 active 4 - no longer taking (replace d by silodosi n) Not Available Not Available Not Available famotidin e 20 mg tablet Take 1 tablet as needed by oral route. 05/24 completed Not Available Not Available Not Available cyanocoba radha (vit B-12) 500 mcg tablet Daily active Not Available Not Available Not Available tamsulosi n 0.4 mg capsule Daily 07/28 completed Duration : 30 days;Ins truction s: TAKE ONE CAPSULE BY MOUTH ONCE DAILY;Fr equency: daily;Me dication Descript ion: tamsulos in; Dosage:1 ; Route:or al; refills: 12; Quantity :30 capsule Not Available Not Available Not Available gabapenti n 800 mg tablet Three times a day 07/28 completed Frequenc y: tid;Medi cation Descript ion: gabapent in; Dosage:1 ; Route:or al; refills: 0 Not Available Not Available Not Available Casodex 50 mg tablet Take 1 tablet every day by oral route for 30 days. 05/30 completed Not Available Not Available Not Available erythromy ann-marie 5 mg/gram (0.5 %) eye ointment 07/28 completed Not Available Not Available Not Available Cipro 500 mg tablet Take 1 tablet every 12 hours by oral route for 3 days. 03/21 completed Not Available Not Available Not Available clotrimaz ole-betam ethasone 1 %-0.05 % topical cream APPLY TO THE AFFECTED AND SURROUND ING AREAS OF SKIN BY TOPICAL ROUTE 2 TIMES PER DAY IN THE MORNING AND EVENING FOR 2 WEEKS 02/23 completed Not Available Not Available Not Available oxybutyni n chloride ER 5 mg tablet,ex tended release 24 hr Daily 07/28 completed Duration : 90 days;Andreas quency: daily;Me dication Descript ion: oxybutyn in; Dosage:1 ; Route:or al; refills: 3; Quantity :90 tablet, extended release Not Available Not Available Not Available lisinopri l 20 mg-hydroc hlorothia zide 25 mg tablet 07/28 completed Not Available Not Available Not Available aspirin 81 mg tablet Daily active Not Available Not Available Not Available lisinopri l 5 mg tablet Take 1 tablet every day by oral route. active Not Available Not Available No t Available furosemid e 20 mg tablet Take 1 tablet every day by oral route in the morning for 90 days. 05/24 completed Not Available Not Available Not Available gabapenti n 100 mg capsule active Not Available Not Available Not Available cefuroxim e axetil 500 mg tablet Take 1 tablet every 12 hours by oral route for 10 days, for uti. 02/23 completed Not Available Not Available Not Available levofloxa ann-marie 500 mg tablet Take 1 tablet every 24 hours by oral route for 5 days. 10/04 completed Not Available Not Available Not Available Vision-Vi te Preserve tablet Take by oral route. active Not Available Not Available No t Available moxifloxa ann-marie 0.5 % eye drops 07/28 completed Not Available Not Available Not Available alfuzosin ER 10 mg tablet,ex tended release 24 hr Take 1 tablet every day by oral route for 90 days. 08/25 completed Not Available Not Available Not Available trospium 20 mg tablet 11/28 completed Not Available Not Available Not Available solifenac in 10 mg tablet Take 1 tablet every day by oral route for 90 days. 08/25 completed Not Available Not Available Not Available Rebif Titration Pack 8.8 mcg/0.2 mL-22 mcg/0.5 mL subcutane ous syringe 07/28 completed Not Available Not Available Not Available Vitamin D active Not Available Not Marybeth ilable Not Available Miralax Daily 07/28 completed Instruct ions: 1 capful daily;Fr equency: daily;Al t Frequenc y: prn;Medi cation Descript ion: polyethy gonzález glycol 3350; Dosage:1 ; Route:or al; refills: 0 Not Available Not Available Not Available vitamin E 15 unit/0.3 mL oral drops Daily active Not Available Not Available Not Available Havrix (PF) 1,440 LINDA unit/mL intramusc ular syringe 07/28 completed Not Available Not Available Not Available trospium ER 60 mg capsule,e xtended release 24 hr Daily 07/28 completed Duration : 30 days;Andreas quency: daily;Me dication Descript ion: trospium ; Dosage:1 ; Route:or al; refills: 11; Quantity :30 capsule, extended release Not Available Not Available Not Available silodosin 8 mg capsule Take 1 capsule every day by oral route for 90 days. 2023 active Not Available Not Available Not Avai lable Probiotic active Not Available Not Marybeth ilable Not Available Lupron Depot (6 Month) active Not Available Not Available Not Available Myrbetriq 50 mg tablet,ex tended release Take 1 tablet every day by oral route for 90 days. 01/31 completed Not Available Not Available Not Available Rebif Rebidose 44 mcg/0.5 mL subcutane ous pen injector 07/28 completed Not Available Not Available Not Available Tecfidera 240 mg capsule,d elayed release Take 1 capsule twice a day by oral route. 03/12 completed Not Available Not Available Not Available potassium chloride ER 20 mEq tablet,ex tended release Take 1 tablet every day by oral route for 90 days. 05/24 completed Not Available Not Available Not Available Ocrevus 30 mg/mL intraveno us solution 2023 active Not Available Not Available Not Avai lable Vitals Date Recorded Body height Body mass index (BMI) Body weight Provider Name and Address Organization Details Last Updated DateTime 05/29/2023 175.26 cm 36.9 kg/m2 670852.09 g Urie Tripp [facility] 05/29/2023 12:57:11 Date Recorded Body height Provider Name an d Address Organization Details Last Updated DateTime 08/26/2023 175.26 cm Janeth Estefany [facility] 0 08/26/2023 08:18:10 Date Recorded Body height Body mass index (BMI) Body weight Provider Name and Address Organization Details Last Updated DateTime 10/16/2023 175.26 cm 36.9 kg/m2 300325.09 g Murelene Tripp [facility] 10/16/2023 15:07:11 Date Recorded Body height Body mass index (BMI) Body weight Provider Name and Address Organization Details Last Updated DateTime 12/04/2023 175.26 cm 36.9 kg/m2 277174.09 g Abrahan Almaguer [facility] 12/04/2023 13:20:26 Date Recorded Body height Provider Name an d Address Organization Details Last Updated DateTime 02/24/2024 175.26 cm Janeth Allison [facility] 1 04/26/2023 08:14:12 Social History Question Answer Notes LastModified by Organizat ion Details LastModified Time Tobacco Smoking Status Current Some [facility] 13:36:22 What Is Your Level Of Alcohol Consumption? Occasional Information not available 07/28/2018 How Much Tobacco Do You Chew? None Information not available 07/28/2018 Which Illicit Or Recreational Drugs Have You Used? None Information not available 03/12/2019 Do You Or Have You Ever Used E-cigarettes Or Vape? Never Used Electronic Cigarettes Information not available 03/12/2019 Live Alone Or With Others? With Others Information not available 07/28/2018 Marital Status Informatio n not available 07/28/2018 What Was The Date Of Your Most Recent Tobacco Screening? 02/24/2024 [email or web address] Information not available 02/24/2024 What Is Your Relationship Status? [email or web address] Information not available 05/24/2021 Has Tobacco Cessation Counseling Been Provided? Yes Information not available 07/28/2018 On What Date Was Tobacco Cessation Counseling Provided? 08/22/2022 [email or web address] Information not available 08/22/2022 How Many Years Have You Smoked Tobacco? 52 Information not available 07/28/2018 Sex: Unknown Functional Status None recorded. Mental Status None recorded. Family History Relationship Description Onset Age of this Age Resolved Age Notes LastModified by Organization Details LastModified Time Father Hypertensive disorder Not available 2018 13:34:28 Father Heart disease Not available 2018 13:34:39 Paternal Grandmother Hypertensive disorder Not available 2018 13:34:28 Paternal Grandmother Heart disease Not available 2018 13:34:39 Paternal Grandmother Obesity Not available 07/28 13:35:06 Mother Diabetes mellitus Not available 2018 13:34:50 Maternal Grandmother Diabetes mellitus Not available 2018 13:34:50 Medical History Condition Response Diabetes Y False Teeth Y High Cholesterol Y Cancer Y Hypertension Y Neurological Problems Y Immunizations Vaccine Type Date Status Note Provider Nam e and Address Organization Details Recorded Time Influenza, split virus, quadrivalent, preservative 8 completed Murelene Tripp null, [facility] 05/01/2023 15:41:04 pneumococcal, unspecified formulation 7 [facility]:04 Hep A, unspecified formulation 8 [facility] 13:20:33 Influenza, split virus, quadrivalent, preservative 9 [facility] 15:41:04 Influenza, split virus, quadrivalent, preservative 0 [facility] 15:41:04 SARS-COV-2 (COVID-19) vaccine, UNSPECIFIED 1 completed Murelene Tripp null, [facility] 12/04/2023 13:20:33 SARS-COV-2 (COVID-19) vaccine, UNSPECIFIED 1 completed Murelene Tripp null, [facility] 12/04/2023 13:20:33 Past Encounters Encounter ID Performer Location Encounter Start Date Encounter Closed Date Diagnosis/Indication Diagnosis SNOMED-CT Code Diagnosis ICD10 Code Diagnosis Note [id number] FRANNY DAVILA MD NEUROLOGY [place] [facility] [address] [place] [address] 07/28/2018 13:20:05 07/28/2018 16:17:39 Multiple sclerosis 79021969 G35 Infection screening 2437 02667 Z11.59 [id number] FRANNY DAVILA MD NEUROLOGY [place] [facility] [address] [place] [address] 2 09/17/2018 08:37:06 09/17/2018 09:28:57 Multiple sclerosis 94845512 G35 [id number] FRANNY DAVILA MD NEUROLOGY [place] [facility] [address] [place] [address] 12/07/2018 10:23:49 12/07/2018 11:43:47 Multiple sclerosis 55339478 G35 Primary pr ogressive multiple sclerosis 641757182 G35 Abnormal g ait due to muscle weakness 028200908 M62.81 Needs walk ing aid in home 689033927 Z74.09 Neurogenic dysfunction of urinary bladder 027630892 N31.9 Long-term drug therapy 935404267 Z79.899 Weakness of left arm 159 4804621 7459374 G83.24 [id number] FRANNY DAVILA MD NEUROLOGY [place] [address] 1 03/12/2019 10:34:22 03/12/2019 12:31:08 Multiple sclerosis 30106159 G35 [id number] FRANNY DAVILA MD NEUROLOGY [place] [address] 1 10/05/2019 10:11:43 10/05/2019 11:33:44 Multiple sclerosis 96851125 G35 Weakness of left arm 694 8098649 2570590 G83.24 Weakness of left leg 051 5650603 7335542 G83.10 Edema 342273757 R60.9 Primary pr ogressive multiple sclerosis 892315760 G35 Long-term drug therapy 828067220 Z79.721 [id number] FRANNY DAVILA MD NEUROLOGY [place] [address] 1 03/30/2020 08:02:28 03/30/2020 08:52:00 Multiple sclerosis 94382054 G35 Primary pr ogressive multiple sclerosis 207366793 G35 Long-term current use of drug therapy 076161759 Z79.899 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 Abnormal g ait due to muscle weakness 594976996 M62.81 [id number] FRANNY DAVILA MD NEUROLOGY [address] [address] 10/02/2020 07:59:39 10/02/2020 11:08:30 Primary progressive multiple sclerosis 117042537 G35 Long-term current use of drug therapy 896279300 Z79.899 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 Abnormal g ait due to muscle weakness 554666562 M62.81 Paresthesi a of upper limb 52321446 R20.2 Paresthesi a of lower extremity 084126190 R20.2 [id number] FRANNY DAVILA MD NEUROLOGY [address] [address] 03/05/2021 08:26:17 03/05/2021 09:19:51 Primary progressive multiple sclerosis 157773455 G35 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 Abnormal g ait due to muscle weakness 547345400 M62.81 Nocturia 003806839 R35.1 [id number] STACY DIAMOND MD [facility] [address] [address],[place] [address] 05/24/2021 12:34:51 05/24/2021 20:50:59 Benign prostatic hyperplasia with outflow obstruction 183882859 N40.1 Increased frequency of urination 704001127 R35.0 Nocturia 820032946 R35.1 [id number] STACY DIAMOND MD [facility] [address] [place] [address] ,[place] [address] 06/14/2021 13:34:12 06/20/2021 17:49:03 Postoperative care 280937346 Z48.89 Malignant tumor of prostate 628948660 C61 [id number] STACY DIAMOND MD [facility] [address] [place] [address] ,[place] [address] 08/02/2021 12:37:32 08/08/2021 07:49:44 Urge incontinence of urine 81403258 N39.41 Urinary tr act infectious disease 86073912 N39.0 Benign pro static hyperplasia with outflow obstruction 349785401 N40.1 [id number] FRANNY DAVILA MD NEUROLOGY [address] [address] 09/03/2021 08:05:11 09/03/2021 08:50:06 Primary progressive multiple sclerosis 610480256 G35 Abnormal g ait due to muscle weakness 270922508 M62.81 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 897392050 Z99.3 [id number] STACY DIAMOND MD [facility] [address] ,[place] [address] 10/04/2021 14:21:00 10/05/2021 14:25:46 Benign prostatic hyperplasia with outflow obstruction 984900875 N40.1 Urge incon tinence of urine 37373793 N39.41 [id number] STACY DIAMOND MD [facility] [address] [place] [address] ,[place] [address] 01/31/2022 12:40:52 02/20/2022 13:17:44 Benign prostatic hyperplasia with outflow obstruction 878890193 N40.1 Urge incon tinence of urine 39753725 N39.41 Malignant tumor of prostate 968306688 C61 [id number] STACY DIAMOND MD SURGERY SCHEDULE [address] [place], [place] [address] 02/21/2022 06:59:24 02/21/2022 06:59:47 [id number] [place] [address] [place] [address] 1 03/04/2022 07:53:47 03/05/2022 08:48:30 Multiple sclerosis 75584995 G35 Long-term current use of drug therapy 198644861 Z79.899 Abnormal g ait due to muscle weakness 700507607 M62.81 Unsteady w hen standing 429515907 R26.81 [id number] STACY DIAMOND MD [facility] [address],[place] [address] 03/21/2022 13:39:55 04/03/2022 11:08:21 Malignant tumor of prostate 530719299 C61 [id number] [facility] [address] [place] [address] 05/30/2022 14:08:49 05/31/2022 09:49:17 Malignant tumor of prostate 964931126 C61 Prostate s pecific antigen above reference range 656523576 R97.20 [id number] FRANNY DAVILA MD NEUROLOGY [address] [place] [address] 08/22/2022 07:54:52 08/23/2022 04:12:24 Multiple sclerosis 10072732 G35 Abnormal g ait due to muscle weakness 527715032 M62.81 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 734000076 Z99.3 [facility] [id number] 3419494 Z74.1 Long-term current use of drug therapy 168685785 Z79.899 [id number] STACY DIAMOND MD [facility] [address] [place] [address] [place] [address] 08/29/2022 13:16:25 08/29/2022 13:48:47 Malignant tumor of prostate 508962970 C61 Prostate s pecific antigen above reference range 727925982 R97.20 PSA in 3 months. Order provided [id number] STACY DIAMOND MD [facility] [address] ,[place] [address] 8 11/28/2022 12:51:42 11/28/2022 15:53:06 Malignant tumor of prostate 263382146 C61 Nocturia 624084458 R35.1 [id number] FRANNY DAVILA MD NEUROLOGY [place] [address] 1 02/24/2023 08:47:29 02/24/2023 09:44:47 Multiple sclerosis 95511528 G35 Disability 61273324 Z78. 9 Walking disability [address] 8008 R26.2 [id number] STACY DIAMOND MD [facility] [address] [place] [address] ,[place] [address] 8 05/01/2023 14:17:13 05/02/2023 15:10:44 Urinary tract infectious disease 15520620 N39.0 Malignant tumor of prostate 614257026 C61 [id number] STACY DIAMOND MD [facility] [address] [place] [address] [place] [address] 05/29/2023 12:52:08 05/29/2023 15:53:22 Urinary tract infectious disease 20989198 N39.0 Malignant tumor of prostate 058139458 C61 [id number] FRANNY DAVILA MD NEUROLOGY [address] [address] 08/26/2023 08:17:18 08/27/2023 05:19:13 Long-term current use of drug therapy 958433965 Z79.899 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 29710 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.20 Abnormal g ait due to muscle weakness 647080318 M62.81 Neurogenic dysfunction of urinary bladder 919487471 N31.9 Multiple sclerosis 92098 007 G35 [id number] STACY DIAMOND MD [facility] [address] [place] [address] ,[address] [place] [address] 10/16/2023 14:44:01 10/17/2023 12:16:23 Urinary tract infectious disease 98176742 N39.0 Malignant tumor of prostate 197879086 C61 Tinea cruris 434598944 B 35.6 Urinary incontinence 165 150988 R32 [id number] STACY DIAMOND MD [facility] [address] ,[address] [place] [address] 12/04/2023 13:00:03 12/04/2023 18:37:32 Urinary tract infectious disease 89609837 N39.0 see above Malignant tumor of prostate 550118226 C61 Lupron injection today Tinea cruris 667447858 B 35.6 Urinary incontinence 165 400601 R32 [id number] FRANNY DAVILA MD NEUROLOGY [address] [address] 02/24/2024 08:13:44 02/26/2024 12:06:49 Multiple sclerosis 39535013 G35 Long-term current use of drug therapy 453136785 Z79.899 High risk medication monitoring indicated 2311606546 2034621 Z76.89 Disability 40397269 Z78. 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 [facility] [id number] 1352730 Z74.1 Taking hig h risk medication 7592485067 56759 Z91.89 Health Concerns Section Related Observation LastModified by Organization Detai ls LastModified Time None Recorded Concern Status LastModified by Organization Details LastModified Time None Recorded Advance Directives Directive None Recorded Payers Encounter Date Sequence Insurance Name Policy Number Policy Munoz Covered Member ID Munoz Member ID Guarantor Name 05/29/2023 1 [place] [employer] [place] [id number] [employer] [place] 05/29/2023 2 [employer] OPTIONS (MEDICARE SUPPLEMENT) [employer] [place] [id number] [employer] [place] 08/26/2023 1 [place] [employer] [place] [id number] [employer] [place] 08/26/2023 2 [employer] OPTIONS (MEDICARE SUPPLEMENT) [employer] [place] [id number] [employer] [place] 10/16/2023 1 [place] [employer] [place] [id number] [employer] [place] 10/16/2023 2 [employer] OPTIONS (MEDICARE SUPPLEMENT) [employer] [place] [id number] [employer] [place] 12/04/2023 1 [place] [employer] [place] [id number] [employer] [place] 12/04/2023 2 [employer] OPTIONS (MEDICARE SUPPLEMENT) [employer] [place] [id number] [employer] [place] 02/24/2024 1 [place] [employer] [place] [id number] [employer] [place] 02/24/2024 2 [employer] OPTIONS (MEDICARE SUPPLEMENT) [employer] [place] [id number] [employer] [place] Notes Date Note Type Note Provider Name and Address Organization Details Recorded Time 05/29/2023 text/html 78-year-old male in the office for follow-up evaluation and for discussion of malignant tumor of prostate and androgen deprivation therapy. He has history of TURP. He is due for PSA and Lupron today. No gross hematuria or dysuria. Force of stream okay. PSAFebruary 2023-0.13August 2022-0.176June 2022- 0.24August 2021- 3.72 STACY DIAMOND MD [address] [place] [address], [phone], [facility] 05/29/2023 19:15:23 08/26/2023 text/html 78 yo here today via telehealth for MS followup - last seen by Dr. Davila in 02/2023.Last in office visit with Dr. Davila was in Mar 2020.Ocrevus 30mg/ml, infuse 600mg every 6m. pre-med with 500 mL bolus normal saline, 50 mg of benadryl IV or PO, 1000 mg Tylenol, and 500 mg solu-medrol.Last labs in Oct 2022 - nlCBC,CMP, TSH, vit B12, immunoglobulins iga+igg+igm quantitative He says doing about the same she says falling quite often has taken physical therapy currently occurringStarted PT in May, started by Dr Saab He uses a post walker, PT made no suggestions about changes says both legs are weak urination is frequent up at night each [address] Diamond, has tried many meds none make a difference last Ocrevus February next is September 07, he gets Ocrevus at [facility]. FRANNY DAVILA MD [address] [place] [address], [phone], [facility] 08/27/2023 07:18:32 10/16/2023 text/html 78-year-old male in the office for evaluation of incontinence. He is currently taking alfuzosin. He has a rash in his genitourinary area. He is having a hard time keeping dry. He reports constant dribble. Daytime and night time frequency every 2 hours. 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 He has history of TURP. Patient reports improvement of rash in the genitourinary area, but has not resolved. He reports a weak stream, mostly incontinent and wears a protective brief. UA today is concerning for infection and will be sent for culture. 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 function of arms, has good cranial nerve function he says holding steady speech is goodchewing and swallowing OK right arm functions OKhandle right hand and arm task OK left arm and hand can do grasp but not pinchcannot handle buttons or zipper left hand cannot handle knife fork or spoon with left hand Right leg has distal fracture, wearing ortho boothad a fall in housethis is week 6 wearing boot,they expect finish with boot perhaps at week # 8 he had a fall in house Left leg is weak,feet nearly immobile Taking Ocrevus, next Mar 09, 2024 he tolerates well He will come to our lab today or tomorrow for CBC, CMP, IgG Reg Nick Nolasco MD in [place] is reg . FRANNY DAVILA MD [address] [place] [address] [place], [address], [facility] 02/24/2024 13:31:52
--- OUTSIDE RECORDS SUMMARY | 2024-07-08 08:54 | XMS_ITS | Encounter Summary ---
Author Name [facility] Organization [facility] [place] Address [address] [place] [address] Care Team Providers Care Inspector Motor Vehicles Name Role Phone UYLISSA HENDERSON Primary Care Provider Unavailab JAMES Almanza [...] PLAN F Mar 24, 2014 PLAN F [id number] LUIS MANUEL PERDOMO PATIENT [facility] [place] PREFERRED PROVIDER ORGANIZAT ION (PPO) [facility] SLE Sep 21, 2012 [id number] LUIS MANUEL PERDOMO PATIENT [employer] ([id number]) PRESCRIPT ION WL3A Sep 21, 2012 [id number] LUIS MANUEL PERDOMO PATIENT MEDICARE (WNR) MEDICARE (M) PART B Sep 21, 2012 PART B [id number] [id number] NOEMI PERDOMO PATIENT MEDICARE (WNR) MEDICARE (M) PART A Jan 22, 2011 PART A [id number] NOEMI PERDOMO PATIENT MEDICARE PART D (WNR) MEDICARE (M) PART D Mar 24, 2014 PART D [id number] LUIS MANUEL PERDOMO PATIENT Selected Encounter This section includes the information on record at [place] for the Encounter. Date/Time Encounter Type Encounter Description Reason Pro vider Source Mar 23, 2024 09:00 AM Outpatient Encounter [facility] - PHYSICIAN IHE Encounter Template Text not used by [place] Plan of Treatment: Future Appointments (+ 6 months) and Future Tests (+/- 45 days) The Plan of Treatment section includes future care activities for the patient from all [place] treatmentfacilities. This section includes future appointments and future orders which are active, pending or scheduled. Future Appointments This section includes appointments that were scheduled to occur 6 months from the date of the Encounter, up to a maximum of 20 appointments. The data comes from all [place] treatment facilities. Appointment Date/Time Appointment Type Appointme nt Facility Name May 05, 2024 08:00 AM AMBULATORY - NONE [place] [facility] August 19, 2024 01:20 PM AMBULATORY - SURGERY [place] [facility] Social History: Smoking Status (Most current) and Tobacco Use (All prior to encounter date) This section includes the most current, and the historical, smoking and tobacco- related health factors from the [place] facility where the Encounter took place. Current Smoking Status This section includes the most current smoking, or tobacco-related health factor, from the [place] facility where the Encounter took place. Date/Time Current Smoking Status Comment Gabriel ity Feb 06, 2024 10:00 AM VA-TOBACCO USER SOME DAYS [facility] Tobacco Use History This section includes a history of the smoking, or tobacco-related health factors, that were collected on or before the date of the Encounter. The data comes from the [place] facility where the Encounter took place. 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 This section includes ALL of a patient's completed or amended [place] Advance and Rescinded Directives. The entries below indicate that a directive exists for the patient, but an actual copy is not included with this document. The data comes from all [place] facilities. Date Advance Directives Provider Source Mar 08, 2024 ADVANCE DIRECTIVE DISCUSSION RUBIN HILL [facility] Encounter Notes: All associated encounter notes This section contains the clinical notes associated to the Encounter. Date/Time Encounter Note(s) Provider Source Mar 23, 2024 09:00 AM HOME HEALTH INTERDISCIPLINARY NOTE: LOCAL TITLE: [facility] INTERDISCIPLINARY PLAN OF CARE STANDARD TITLE: HOME HEALTH INTERDISCIPLINARY NOTE DATE OF NOTE: MAR 23, 2024@09:00 ENTRY DATE: MAR 23, 2024@13:23:53 AUTHOR: BUNNY SAHA COSIGNER: YULISSA HENDERSON URGENCY: STATUS: COMPLETED Home Based Primary Care Interdisciplinary Treatment Plan Admission Date: 03/04/24 Period to cover: 03/04/24-06/01/24 Allergies: NKDA Diet Recommendation: Calorie Controlled/NCS/MICHELLE Activity level: Ad mima Mobility: -BED MOBILITY: occasional assist -TRANSFERS: Sit/Stand: elevate seat height, increased use of UE's, FWW -GAIT: ambulates short distances indoors with FWW slow vladislav, gait deficits. 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 Toileting: incontinence, wears depends, assist with clothing and cleanup. Bathing: assist seated Prosthetics/equipment/device s: 03/10 ordered rocker knife. On Feb ordered handheld shower, standard F22 rollator, ROHO [id number] mid profile cushion Living arrangements: with spouse Mental Status please see dated 03/04/24 Behavioral concerns-none Patient safety concerns: fall risk Emergency Preparedness Priority Code: 3-LOW Prognosis: fair CODE STATUS: FULL PROBLEM: Impaired physical mobility related to fatigue and weakness LLE with MS [place] Stated goal I will do ROM exercises with my legs and arms as able once a day for the next three months to not lose any ability that I have senior living goals developed further with include Bondurant do ROM so no further decline in neuromuscular status Chronic will manage until discharge TARGET DATE FOR GOAL: Within the next quarter unless otherwise specified STATUS: Follows an outside neurologist for MS-he is limited in his ability to ambulate at this time due to his MS and a fracture- RN INTERVENTIONS for routine visits: Monitor blood pressure, pulse, respiration every visit. RN Educate Bondurant on signs/symptoms worsening MS as needed RN Monitor medication use every visit. RN Educate / caregiver on bedrest for pain/fatigue during exacerbation as needed-RN Educate on safety/fall prevention as needed RN PROBLEM: DIABETES GOALS: intermediate card tender goals developed further with include: will have HgbA1c level 8 CHRONIC WILL MANAGE UNTIL DISCHARGE TARGET DATE FOR GOAL: Within the next quarter unless otherwise specified. STATUS: A1C 02/06/24 6.4 RN INTERVENTIONS for routine visits: Monitor for symptoms of hypoglycemia and hyperglycemia. RN Educate Bondurant/caregiver on how to manage episodes of hypo/hyperglycemia as needed. RN Monitor medication compliance. RN Reinforce recommended diet with /caregiver. RN Collect labs as ordered. Nurse Encourage Bondurant/caregiver to perform blood sugar checks as recommended. RN PROBLEM: HYPERTENSION [place] Stated goal: senior living goals developed further with Bondurant include: BP to be less than 140/90 Chronic will manage until discharge. TARGET DATE FOR GOAL: Within the next quarter unless otherwise specified. STATUS: New patient to [facility] and to the VA system-will monitor his [...] Reinforce Recommended Diet. RN/RD PROBLEM: MEDICATION ADHERENCE/MANAGEMENT intermediate card tender goals developed further with include: Will take medications with 90 - 100% accuracy as evidenced by one or more of the following: medminder use, caregiver interview, medication list, ordering pattern, [facility] observation. /Caregiver will report any adverse reactions, side effects, or concerns to [facility] relative to medication issues. TARGET DATE FOR GOAL: Within the next quarter, unless otherwise specified. Chronic- Will manage until discharge. STATUS: new patient -will monitor for compliance- RN INTERVENTIONS for routine visits: Remind Bondurant/Caregiver to report any OTC use to [facility]. RN Monitor medication adherence every visit. RN Educate /caregiver on how to reorder medications as needed. RN Provide education on medication regimen, purpose, and side effects at initial assessment, with new medications, when medications changed, and as needed. RN Provide Bondurant/Caregiver with current medication list and reconcile medications with each visit. RN PROBLEM: Care Management for VA purposes for patients with [facility] intermediate card tender goals developed further with Bondurant include Patient's care needs will be coordinated within several agencies TARGET DATE FOR GOAL: Within the next quarter unless otherwise specified STATUS: Vern jessica for UNIVERSITY LECTURER/HM program- RN INTERVENTIONS for routine visits: Patient followed by Home Health Agency: this info is found on the consult for home health Monitor services provided by [facility] . RN Monitor for need for any equipment, supplies or specialty services provided by [facility]. RN Coordination of information between the Home Health Agency and [facility] PACT. RN PROBLEM: ADVANCE DIRECTIVES/LIFE PLANNING stated goal: I will think about doing an advance directive. intermediate card tender goals developed further with include: Completing advance directives TARGET DATE: Quarterly STATUS: None on file at this time. Advance Directive?No Yes on file in [facility]S Living Will?No Yes on file in [facility]S Durable Power of Professor Of Economics for Health Care? No/Yes Who? Full name and phone # INTERVENTIONS: Provide education and ongoing review of Advance Directives. SW Assist patient in completion of new Advance Directive if desired. SW PROBLEM: LONG-TERM CARE PLANNING stated goal: I wish to stay home. intermediate card tender goals developed further with include: STATUS: lives at home with his . TARGET DATE: Quarterly INTERVENTIONS: said she will care for Bondurant as long as she can, but placement may be needed in the future. Assist Bondurant and caregiver/medical decision maker in discussing life plans in relation to needs and available supports/services. SW Provide options of care and assist with any placement issues. SW HEALTH MAINTENANCE PROBLEM: SAFETY ISSUE - POTENTIAL FOR INJURY FROM FALLS GOALS: 1. will have #1 no more than one fall per quarter, #2 no falls with bone fracture, #3 no falls with a brain bleed and #4 no falls resulting in an emergency department visit. DATE FOR GOAL: Within the next 90 days, unless otherwise specified. STATUS: New health maintenance problem with goals. SS, PT EDUCATION: - Home visit 19 Mar 2024: ordered rollator to increase safety with ambulation and provide seat to sit and rest when fatigued. Ordered handheld shower head. ROHO cushion for pressure relief. Contact info for seating and mobility clinic Frequency of [facility] home or VVC visits PROVIDER: Annually and [...] issues, VA benefits, counseling, and transportation. PT: Comprehensive in-home environmental and functional assessment completed. 1-2 follow up visits (face to face, VVC, telephone) this quarter if clinically indicated for additional instruction or education on ROHO cushion, gait training with rollator or any of the following: identifying functional deficits and falls risk, post fall evaluation and education. Determine need for durable medical equipment (DME); educate and caregiver on safe use and maintenance of DME; reporting equipment problems and facilitating repair or replacement of DME via the [facility]. Identifying home safety risk and need for structural modification and adaptive equipment for safety and accessibility of the home environment. RD: Annually, and 3 additional visits as needed in the quarter for dietary education, swallowing issues, weight loss or weight gain. Psychologist: As clinically indicated Members Present: Jennifer Lopez for Rosemarie Bolivar RD; Althea hamilton for Cierra Sifuentes RN, Magalys Henderson ELECTRONICS TESTER, Valeriano Broussard Website Optimization Strategist Nurse Assembling Machine Operator; Mati Remy for Isai Alfaro, PT; Henrry Harry Psy.D.; Jer Corbin for Janae Ang, Dr. Diamond for Abril Montaño SW Target date for next staffing-05/25/24 /rosette/ Bunny Saha RN card scraper Signed: 03/23/2024 13:24 /es/ YULISSA HENDERSON APRN ADVANCED PRACTICE REGISTERED NURSE, [facility] Cosigned: 03/23/2024 14:58 Receipt Acknowledged By: 03/23/2024 14:00 /es/ Zehra Diamond MD Physician [facility] 03/23/2024 15:07 /es/ MARIO LOPEZ Registered Dietitian 03/23/2024 14:06 /es/ Valeriano Broussard MSN RN [facility] RN 03/25/2024 09:23 /es/ [facility] REMY 03/23/2024 14:13 /es/ ABRIL HILL 03/23/2024 14:47 /es/ RIAN CORBIN, KHANHD, BCACP PHARMACIST 03/23/2024 13:28 /es/ FELISA HARRY PSYD. LICENSED PSYCHOLOGIST 03/23/2024 15:31 /es/ BUNNY MORILLO [facility]
--- OUTSIDE RECORDS SUMMARY | 2024-07-08 08:54 | XMS_ITS | Encounter Summary ---
Author Name [facility] [place] Address [address] [place] [address] Care Team Providers Care Nursing Coordinator Name Role Phone YULISSA HENDERSON Primary Care [...] PLAN F Mar 24, 2014 PLAN F [id number] LUIS MANUEL PERDOMO PATIENT [facility] [place] PREFERRED PROVIDER ORGANIZAT ION (PPO) [facility] Sep 21, 2012 [id number] LUIS MANUEL PERDOMO PATIENT [employer] ([id number]) PRESCRIPT ION WL3A Sep 21, 2012 [id number] LUIS MANUEL PERDOMO PATIENT MEDICARE (WNR) MEDICARE (M) PART B Sep 21, 2012 PART B [id number] NOEMI PERDOMO PATIENT MEDICARE (WNR) MEDICARE (M) PART A Jan 22, 2011 PART A [id number] NOEMI PERDOMO PATIENT MEDICARE PART D (WNR) MEDICARE (M) PART D Mar 24, 2014 PART D [id number] LUIS MANUEL PERDOMO PATIENT Selected Encounter This section includes the information on record at [place] for the Encounter. Date/Time Encounter Type Encounter Description Reason Provider Source May 18, 2024 12:46 PM NQHP OL DIG ASSMT&MGMT 11-20 [facility] - CLINICAL PHARMACIST ICD-10-CM Z79.899 Other custodial (current) drug therapy JANAE CEJA IHStephen Encounter Template Text not used by [place] Assessments - Encounter Diagnoses This section includes the primary and secondary diagnoses documented for the Encounter. Date/Time Primary/Secondary Diagnosis Diagnosis Name Provider Source May 18, 2024 01:11 PM PRIMARY Other custodial (current) drug therapy EM JJ [facility] Plan of Treatment: Future Appointments (+ 6 months) and Future Tests (+/- 45 days) The Plan of Treatment section includes future care activities for the patient [facility] [place] [facility] This section includes future appointments and future orders which are active, pending or scheduled. Future Appointments This section includes appointments that were scheduled to occur 6 months from the date of the Encounter, up to a maximum of 20 appointments. The data comes from all [place] treatment facilities. Appointment Date/Time Appointment Type Appointme nt Facility Name August 19, 2024 01:20 PM AMBULATORY - SURGERY [facility] Active, Pending, and Scheduled Orders This section includes a listing of several types of active, pending, and scheduled orders, including clinic medications orders, diagnostic test orders, procedure orders and consult orders; where the start date of the order is 45 days before the date of the Encounter or 45 days after the date of theEncounter. The data comes from all [place] treatment facilities. Test Date/Time Test Type Test Details Facility Name Jun 08, 2024 11:04 AM Consult Order ORTHO KNEE OUTPATIENT Cons Hand Developer's Choice [facility] Lab Results: +/- 30 days of the encounter This section includes the Chemistry and Hematology Lab Results on record with [place] for the patient. Radiology Reports and Pathology Reports are provided separately, in subsequent sections. Lab Results This section contains the Chemistry/Hematology Results that were resulted 30 days before or 30 daysafter the date of the Encounter. Date/Time Source Result Type Result - Unit Interpretation Reference Range Specimen Type Comment May 25, 2024 11:30 AM [facility] N IRON/TIBC PLASMA Specimen Type: PLASMA No comment entered. Ordering Provider: YULISSA HENDERSON Report Released Date/Time: Apr 22, 2024 08:13 AM Reporting Lab: [address] [address] Performing Lab: [address] [address] IRON 53 ug/dL L 65-175 TIBC 233 mg/dL L 250-425 IRON SATURATION 23 20-50 May 25, 2024 11:30 AM [facility] FERRITIN PLASMA Specimen Type: PLASMA No comment entered. Ordering Provider: YULISSA HENDERSON Report Released Date/Time: Apr 22, 2024 08:13 AM Reporting Lab: [address] [address] Performing Lab: [address] [address] FERRITIN 141.1 ng/mL 21.8-274.7 May 25, 2024 11:30 AM [facility] CBC/PLT BLOOD Specimen Type: BLOOD No comment entered. Ordering Provider: YULISSA HENDERSON Report Released Date/Time: Apr 22, 2024 08:13 AM Reporting Lab: [address] [address] Performing Lab: [address] [address] WBC 9.6 10*3/uL 5.0-10.0 RBC 4.00 10*6/uL [...] ALL of a patient's completed or amended [place] Advance and Rescinded Directives. The entries below indicate that a directive exists for the patient, but an actual copy is not included with this document. The data comes from all [place] facilities. Date Advance Directives Provider Source Mar 08, 2024 ADVANCE DIRECTIVE DISCUSSION RUBIN HILL [facility] Radiology Reports: +/- 30 days of [...] the Encounter. The data comes from all [place] treatment facilities. Date/Time Radiology Report Provider Source May 31, 2024 10:53 AM ORTHO VJIL-MBBPY-CZC,SUN,TUNL,W/B OTH AP STANDING: LUIS MANUEL PERDOMO [id number] -[id number] M Exm Date: MAY 31, 2024@10:53 Req Phys: YULISSA HENDERSON Loc: [facility] BOX PRINTER VST (Req'g Loc) Img Loc: [facility] RADIOLOG[facility] Service: [place] [address] (Case [id number] COMPLETE) ORTHO [id number],SUN,TUNL,W/B (RAD Detailed) CPT:13051 Reason for Study: chronic pain right knee Clinical History: patient reports outside xrays show bone on bone Report Status: Verified Date Reported: JUN 01, 2024 Date Verified: JUN 01, 2024 Technology Specialist E-Sig: Report: ORTHO MYUA-UEUUM-EUD,SUN,TUNL,W/B OTH AP STANDING, 05/31/2024 11:07 AM EDT INDICATION: chronic pain right knee COMPARISON: None Impression: Right knee: No acute fracture or malalignment. Moderate tricompartmental degenerative change. Small inferior patellar pole enthesophyte. Vascular calcifications. 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 Primary Diagnostic Code: NO ALERT REQUIRED Primary Interpreting Staff: PINKY OBRIEN, Staff Physician Verified by loadmaster for PINKY OBRIEN /PINKY SINGH [facility] Encounter Notes: All associated encounter notes This section contains the clinical notes associated to the Encounter. Date/Time Encounter Note(s) Provider Source May 18, 2024 12:46 PM PHARMACY HOME [facility] NOTE: LOCAL TITLE: [facility] PHARMACY NOTE STANDARD TITLE: PHARMACY [facility] NOTE DATE OF NOTE: MAY 18, 2024@12:46 ENTRY DATE: MAY 18, 2024@12:47:14 AUTHOR: EM JJ COSIGNER: JANAE CEJA URGENCY: STATUS: COMPLETED [facility] PHARMACY NOTE Has ADDENDA PMH: 1. Gastroesophageal [...] Home ZOSTER RECOMBINANT 1 01/04/2019 IZG:CLAUDETTE IIS Medications: Active and Recently Outpatient Medications (including Supplies): Active Outpatient Medications Status 1) BRIEF,TRANQ ALEX OVERNITE XL#2117 PULLUP USE 1 BRIEF ACTIVE DIRECTED THREE TIMES A DAY Indication: FOR INCONTINENCE 2) GLOVE VINYL MEDIUM PWDR-FREE NONSTERILE USE GLOVE ACTIVE DIRECTED FOUR TIMES A DAY Indication: CLEANING 3) MEDICATION DISPOSAL PATIENT PKT USE 1 PACKET DIRECTED ACTIVE Indication: FOR RETURNING MEDICATIONS 4) UNDERPAD,BED [id number] TRANQUILITY-2710 USE UNDERPAD ACTIVE DIRECTED THREE TIMES [...] Dave Diamond *NonVA PCP Bertha Allen in [place] New therapies/medication changes since last Pharmacy review: [...] administer immunization(s) /rosette/ EM JJ PHARMD PGY1 IDEA WORKER Signed: 05/18/2024 13:12 /rosette/ Janae Ceja Pharm.D., B.C.P.S Clinical Pharmacist - [facility] Cosigned: 05/19/2024 08:08 05/19/2024 ADDENDUM STATUS: COMPLETED Reviewed. Agree with above. /rosette/ Janae Ceja PharmVivianeDViviane, Rajat Clinical Pharmacist - [facility] Signed: 05/19/2024 08:09 EM JJ-D [facility]
--- OUTSIDE RECORDS SUMMARY | 2024-07-08 08:54 | XMS_ITS ---
Author Name [facility] [place] [facility] [facility] [place] Address [address] [place] [address] Care Team Providers Care Family Medicine Physician Name Role Phone YULISSA HENDERSON Primary Care [...] PLAN F Mar 24, 2014 PLAN F [id number] LUIS MANUEL PERDOMO PATIENT [facility] [place] [facility] PREFERRED PROVIDER ORGANIZAT ION (PPO) [facility] Sep 21, 2012 [id number] LUIS MANUEL PERDOMO PATIENT [employer] ([id number]) PRESCRIPT ION [id number] Sep 21, 2012 [id number] [phone] LUIS MANUEL PERDOMO PATIENT MEDICARE (WNR) MEDICARE (M) PART B Sep 21, 2012 PART B [id number] NOEMI PERDOMO PATIENT MEDICARE (WNR) MEDICARE (M) PART A Jan 22, 2011 PART A [id number] NOEMI PERDOMO PATIENT MEDICARE PART D (WNR) MEDICARE (M) PART D Mar 24, 2014 PART D [id number] LUIS MANUEL PEDROMO PATIENT Selected Encounter This section includes the information on record at [place] for the Encounter. Date/Time Encounter Type Encounter Description Reason Pro vider Source May 27, 2024 08:43 AM Outpatient Encounter [facility] PHYSIC EXTND(MUSIC COMPOSER,CLINICAL APPEALS RN,PA) IHE Encounter Template Text not used by [place] Plan of Treatment: Future Appointments (+ 6 [...] 19, 2024 01:20 PM AMBULATORY - SURGERY [facility] Active, Pending, and Scheduled Orders This section includes a listing of several types of active, pending, and scheduled orders, including clinic medications orders, diagnostic test orders, procedure orders and consult orders; where the start date of the order is 45 days before the date of the Encounter or 45 days after the date of theEncounter. The data comes from all [place] treatment facilities. Test Date/Time Test Type Test Details Facility Name Jun 08, 2024 11:04 AM Consult Order ORTHO KNEE OUTPATIENT Cons Vaccine Specialist's Choice [facility] Lab Results: +/- 30 days of the [...] Type Comment May 25, 2024 11:30 AM [facility] N IRON/TIBC PLASMA Specimen Type: PLASMA No comment entered. Ordering Provider: YULISSA HENDERSON Report Released Date/Time: Apr 22, 2024 08:13 AM Reporting Lab: [facility] [address] [facility] [id number] Performing Lab: [address] [address] IRON 53 ug/dL L 65-175 TIBC 233 mg/dL L 250-425 IRON SATURATION 23 20-50 May 25, 2024 11:30 AM [facility] FERRITIN PLASMA Specimen Type: PLASMA No comment entered. Ordering Provider: YULISSA HENDERSON Report Released Date/Time: Apr 22, 2024 08:13 AM Reporting Lab: [address] [address] Performing Lab: [address] [address] FERRITIN 141.1 ng/mL 21.8-274.7 May 25, 2024 11:30 AM [facility]/PLT BLOOD Specimen Type: BLOOD No comment entered. Ordering Provider: YULISSA HENDERSON Report Released Date/Time: Apr 22, 2024 08:13 AM Reporting Lab: [address] [address] Performing Lab: [address] [address] WBC 9.6 10*3/uL 5.0-10.0 RBC 4.00 10*6/uL [...] the Encounter. The data comes from all [place] treatment facilities. Date/Time Radiology Report Provider Source May 31, 2024 10:53 AM ORTHO [id number],SUN,TUNL,W/B OTH AP STANDING: LUIS MANUEL PERDOMO [id number] -[id number] M Exm Date: MAY 31, 2024@10:53 Req Phys: YULISSA HENDERSON Loc: [facility] MUSIC COMPOSER HM VST (Req'g Loc) Img Loc: [facility] RADIOLOGY Service: [place] [address] (Case [id number] COMPLETE) ORTHO [id number],SUN,TUNL,W/B (RAD Detailed) CPT:21550 Reason for Study: chronic pain right knee Clinical History: patient reports outside xrays show bone on bone Report Status: Verified Date Reported: JUN 01, 2024 Date Verified: JUN 01, 2024 Calender Feeder E-Sig: Report: ORTHO [id number],SUN,TUNL,W/B OTH AP STANDING, 05/31/2024 11:07 AM EDT INDICATION: chronic pain right knee COMPARISON: None Impression: Right knee: No acute fracture or malalignment. Moderate tricompartmental degenerative change. Small inferior patellar pole enthesophyte. Vascular calcifications. 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 Primary Diagnostic Code: NO ALERT REQUIRED Primary Interpreting Staff: PINKY OBRIEN, Staff Physician Verified by major case detective for PINKY OBRIEN /PINKY SINGH [facility] Encounter Notes: All associated encounter notes This section contains the clinical notes associated to the Encounter. Date/Time Encounter Note(s) Provider Source May 27, 2024 08:43 AM [facility] NOTE: LOCAL TITLE: [facility] CHART CHECK STANDARD TITLE: [facility] NOTE DATE OF NOTE: MAY 27, 2024@08:43 ENTRY DATE: MAY 27, 2024@08:43:34 AUTHOR: YULISSA HENDERSON EXP COSIGNER: URGENCY: STATUS: COMPLETED May 25, 2024@11:30 Test Name Result Units Range --------- ------ ----- ----- IRON 53 L ug/dL 65 - 175 TIBC 233 L mg/dL 250 - 425 IRON SATURATION 23 % 20 - 50 FERRITIN 141.1 ng/mL 21.8 - 274.7 IRON 53 L ug/dL 65 - 175 TIBC 233 L mg/dL 250 - 425 IRON SATURATION 23 % 20 - 50 FERRITIN 141.1 ng/mL 21.8 - 274.7 WBC 9.6 K/cmm 5.0 - 10.0 RBC [...] 13.1 NRBC 0.0 % 0.0 - 0.0 Slight decrease in h/h. Iron saturations in normal range. Appears to be anemia of chronic disease. Plan: no change in medications. Will send lab letter. /rosette/ YULISSA HENDERSON APRN [facility] PRACTICE REGISTERED NURSE, [facility] Signed: 05/27/2024 14:16 YULISSA HENDERSON-MALKA [facility]
--- OUTSIDE RECORDS SUMMARY | 2024-07-08 08:54 | XMS_ITS | Continuity of Care Document ---
Author Name [facility] Organization [facility] Care Team Providers Care Network Analyst Name Role Phone [facility] Unavailable Unavailable Problems Combined list of problems from Department of [facility] and [facility] facilities. It does not include entries that were removed or entered in error. Problem Status Onset Date Problem Type Date of Resolution Comments Source Age related macular degeneration Active Condition [facility] Carcinoma of prostate Active Condition [facility] Closed fracture of shaft of right fibula Active Condition [facility] Constipation Active Condition [facility] Essential hypertension Active Condition [facility] Gastroesophageal reflux disease without esophagitis Active Condition [facility] Hyperlipidemia Active Condition [place] [facility] Incontinence Active Condition [facility] Multiple sclerosis Active Condition [facility] Pain of right knee joint Active Condition [facility] Type 2 diabetes mellitus Active Condition [facility] Diagnosis: ICD-10-CM G35 Multiple sclerosis Active Diagnosis [facility] Diagnosis: ICD-10-CM Z65.9 Problem related to unspecified psychosocial circumstances Active Diagnosis [facility] Diagnosis: ICD-10-CM I10 Essential (primary) hypertension Active Diagnosis [facility] Diagnosis: ICD-10-CM K21.9 Gastro-esophageal reflux disease without esophagitis Active Diagnosis [facility] Diagnosis: ICD-10-CM Z79.899 Other salvage determiner (current) drug therapy Active Diagnosis [facility] Diagnosis: ICD-10-CM M25.561 Pain in right knee Active Diagnosis [facility] Diagnosis: ICD-10-CM S82.401A Unsp fracture of shaft of right fibula, init for clos fx Active Diagnosis [facility] Diagnosis: ICD-10-CM Z75.5 Holiday relief care Active Diagnosis [facility] Diagnosis: ICD-10-CM E66.09 Other obesity due to excess calories Active Diagnosis [facility] Diagnosis: ICD-10-CM Z71.2 Person consulting for explanation of exam or test findings Active Diagnosis [facility] Medications Combined list of outpatient medications from [facility] of Defense and [facility] facilities.Medications provided include 1) outpatient medications from the last 15 months, and 2) patient-reported medications. Medication Details Route Status Patient Instructions Prescription Expires Prescription Number Last Dispense Date Ordering Provider Order Date Order Qty Source ASPIRIN 81MG TAB,CHEWABL E CHEW ONE TABLET BY MOUTH DAILY ORAL ACTIVE COMERBUCK 2023 [place] [facility] ATORVASTATI N CA 20MG TAB TAKE ONE TABLET BY MOUTH AT BEDTIME ORAL ACTIVE COMERBUCK 2023 [place] [facility] BISOPROLOL FUMARATE 5MG TAB TAKE ONE TABLET BY MOUTH DAILY ORAL ACTIVE COMERBUCK 2023 [place] [facility] CHOLECALCIF THAIS 10MCG (400UNIT) TAB TAKE ONE TABLET BY MOUTH DAILY ORAL ACTIVE COMERBUCK 2023 [place] [facility] CHOLECALCIF THAIS 50MCG (2,000UNIT) TAB TAKE ONE TABLET BY MOUTH TWICE A DAY ORAL ACTIVE COMER,BUCK Campos 2023 [place] [facility] CLOTRIMAZOL E 1% CREAM,TOP APPLY SMALL AMOUNT TO AFFECTED AREA THREE TIMES A DAY NEEDED FOR FUNGAL INFECTIO N APPLY TO GROIN RASH TOPICA Deshaun ACTIVE 05/19/2025 [id number] FLO HENDERSON 2024 60 [place] DICLOFENAC NA 1% GEL,TOP APPLY 2 GRAM STRIP TO AFFECTED AREA EVERY 6 HOURS NEEDED FOR PAIN APPLY TO RIGHT KNEE TOPICA L ACTIVE 05/19/2025 [id number] FLO HENDERSON 2024 200 [place] FAMOTIDINE 20MG TAB TAKE ONE TABLET BY MOUTH TWICE A DAY NEEDED ORAL ACTIVE COMERBUCK 2023 [place] [facility] GABAPENTIN TAB TAKE 100MG BY MOUTH FOUR TIMES A DAY ORAL ACTIVE COMERBUCK 2023 [place] [facility] HYDROPHILIC (EQV EUCERIN) CREAM,TOP APPLY SMALL AMOUNT TO AFFECTED AREA NEEDED FOR DRY SKIN TOPICA L ACTIVE 05/19/2025 [id number] FLO HENDERSON 2024 454 [place] [facility] IPRATROPIUM BR 0.03% SOLN,SPRAY, NASAL SPRAY 1 SPRAY IN NOSE WITH MEALS FOR NASAL ALLERGIE S NASAL ACTIVE 05/19/2025 [id number] FLO HENDERSON 2024 30 [place] [facility] LEUPROLIDE ACETATE (ELIGARD) 45MG (6 MONTH) INJ,SUSP,LA 45MG (1 DOSE) UNDER THE SKIN ONCE SUBCUT ANEOUS ACTIVE COMER,BUCK Campos 2023 [place] [facility] MELOXICAM 7.5MG TAB TAKE ONE TABLET BY MOUTH DAILY FOR PAIN OR INFLAMMA TION -TAKE WITH FOOD OR MILK ORAL DISCONT INUED BY SOPHY Campos 05/01/2025 [id number] FLO HENDERSON 2024 90 [place] METFORMIN HCL 500MG 24HR TAB,SA TAKE ONE TABLET BY MOUTH DAILY ORAL ACTIVE COMERBUCK 2023 [place] [facility] METHENAMINE HIPPURATE 1GM TAB TAKE ONE TABLET BY MOUTH TWICE A DAY ORAL ACTIVE COMERBUCK 2023 [place] [facility] MULTIVITAMI N/OPTH AREDS SINGLE STRENGTH TAB TAKE 2 CAPSULES BY MOUTH DAILY ORAL ACTIVE COMERBUCK 2023 [place] [facility] OCRELIZUMAB INJ,SOLN INJECT INTO THE VEIN DIRECTED Q 6 MONTHS INTRAV ENOUS ACTIVE COMERBUCK 2023 [place] [facility] POLYETHYLEN E GLYCOL 3350 PWDR,ORAL MIX 17 GRAMS (ONE CAPFUL FILLED TO LINE) IN LIQUID AND TAKE BY MOUTH DAILY ORAL ACTIVE COMERBUCK 2023 [place] [facility] PSYLLIUM CAP,ORAL TAKE 1 CAPSULE BY MOUTH DAILY ORAL ACTIVE COMER,BUCK Campos 2023 [place] [facility] SILODOSIN 8MG CAP,ORAL TAKE 1 CAPSULE BY MOUTH DAILY ORAL ACTIVE COMER,BUCK Andres 2023 [place] [facility] Immunizations Combined list of available immunizations from the Department of Defense and Veterans Affairs facilities. Immunization Series Date Given Administered By Site Reaction Lot Number CVX Code Drug Inventory Manager Status Comments Source INFLUENZA, UNSPECIFIED FORMULATION 2023 88 complet ed HISTORICA L INFORMATI ON - FROM PATIENT'S WRITTEN RECORD, [place] [facility] COVID-19 (MODERNA), MRNA, LNP-S, PF, 50 MCG/0.5 ML (AGES 12+ YEARS) 6 2022 312 complet ed HISTORICA L INFORMATI ON - FROM OTHER REGISTRY, [place] [facility] INFLUENZA, HIGH-DOSE, QUADRIVALENT, PF 1 2022 197 complet ed HISTORICA L INFORMATI ON - FROM OTHER REGISTRY, [place] [facility] COVID-19 (PFIZER), MRNA, LNP-S, BIVALENT, PF, 30 MCG/0.3 ML DOSE 5 2021 300 complet ed HISTORICA L INFORMATI ON - FROM OTHER REGISTRY, [place] [facility] COVID-19 (PFIZER), MRNA, LNP-S, PF, 30 MCG/0.3 ML DOSE, HERMAN-SUCROSE (AGES 12+ YEARS) 4 2021 217 complet ed HISTORICA L INFORMATI ON - FROM OTHER REGISTRY, [place] [facility] [place] COVID-19 (PFIZER), MRNA, LNP-S, PF, 30 MCG/0.3 ML DOSE 3 2020 208 complet ed HISTORICA L INFORMATI ON - FROM OTHER REGISTRY, [place] [facility]-19 ([employer]), MRNA, LNP-S, PF, 30 MCG/0.3 ML DOSE 2 2020 208 complet ed HISTORICA L INFORMATI ON - FROM OTHER REGISTRY, [place] [facility]-19 ([employer]), MRNA, LNP-S, PF, 30 MCG/0.3 ML DOSE 1 2020 208 complet ed HISTORICA L INFORMATI ON - FROM OTHER REGISTRY, [place] [facility] ZOSTER RECOMBINANT 1 2018 187 complet ed HISTORICA L INFORMATI ON - FROM OTHER REGISTRY, [place] [facility] HEPB-CPG 2 2018 189 complet ed HISTORICA L INFORMATI ON - FROM OTHER REGISTRY, [place] [facility] HEPB-CPG 1 2018 189 complet ed HISTORICA L INFORMATI ON - FROM OTHER REGISTRY, [place] [facility] HEP A, ADULT 2 2018 52 complet ed HISTORICA L INFORMATI ON - FROM OTHER REGISTRY, [place] [facility] HEP A, ADULT 1 2017 52 complet ed HISTORICA L INFORMATI ON - FROM OTHER REGISTRY, [place] [facility] Results Combined list of recent chemistry, hematology and other laboratory results from Department of Defense and Veterans Affairs, ranging from 15 months to all on record, depending upon the facility. Order Name Results Value Reference Range Date Interpretation Specimen Comments Source IRON/TIBC IRON [MOLES/VOLU ME] IN SERUM OR PLASMA 53 ug/dL 65 - 175 05/25 L Specimen Type: PLASMA No comment entered. Ordering Provider: EZE HENDERSON Report Released Date/Time: Apr 22, 2024 08:13 AM Reporting Lab: [facility] [address] [address] Performing Lab: [facility] [address] [address] [facility] IRON/TIBC IRON BINDING CAPACITY [MASS/VOLUM E] IN SERUM OR PLASMA 233 mg/dL 250 - 425 05/25 L Specimen Type: PLASMA No comment entered. Ordering Provider: EZE HENDERSON Report Released Date/Time: Apr 22, 2024 08:13 AM Reporting Lab: [facility] [address] [address] Performing Lab: [facility] [address] [address] [facility] IRON/TIBC IRON SATURATION [MOLAR FRACTION] IN SERUM OR PLASMA 23 20 - 50 05/25 Specimen Type: PLASMA No comment entered. Ordering Provider: EZE HENDERSON Report Released Date/Time: Apr 22, 2024 08:13 AM Reporting Lab: [place] [address] Performing Lab: [address] FERRITIN FERRITIN [MASS/VOLUM E] IN SERUM OR PLASMA 141.1 ng/mL 21.8 - 274.7 05/25 Specimen Type: PLASMA No comment entered. Ordering Provider: EZE HENDERSON Report Released Date/Time: Apr 22, 2024 08:13 AM Reporting Lab: [place] [address] Performing Lab: [address] CBC/PLT LEUKOCYTES [#/VOLUME] IN BLOOD BY AUTOMATED COUNT 9.6 10*3/u L 5.0 - 10.0 05/25 Specimen Type: BLOOD No comment entered. Ordering Provider: EZE HENDERSON Report Released Date/Time: Apr 22, 2024 08:13 AM Reporting Lab: [place] [address] Performing Lab: [address] CBC/PLT ERYTHROCYTE S [#/VOLUME] IN BLOOD BY AUTOMATED COUNT 4.00 10*6/u L 4.6 - 6.2 05/25 L Specimen Type: BLOOD No comment entered. Ordering Provider: EZE HENDERSON Report Released Date/Time: Apr 22, 2024 08:13 AM Reporting Lab: [place] [address] Performing Lab: [address] CBC/PLT HEMOGLOBIN [MASS/VOLUM E] IN BLOOD 11.3 g/dL 14.0 - 18.0 05/25 L Specimen Type: BLOOD No comment entered. Ordering Provider: EZE HENDERSON Report Released Date/Time: Apr 22, 2024 08:13 AM Reporting Lab: [address] [address] Performing Lab: [address] [address] [facility] CBC/PLT HEMATOCRIT [VOLUME FRACTION] OF BLOOD BY AUTOMATED COUNT 35.0 42.0 - 52.0 05/25 L Specimen Type: BLOOD No comment entered. Ordering Provider: EZE HENDERSON Report Released Date/Time: Apr 22, 2024 08:13 AM Reporting Lab: [address] [address] Performing Lab: [address] [address] [facility] CBC/PLT MCV [ENTITIC VOLUME] BY AUTOMATED COUNT 87.5 fL 80.0 - 94.0 05/25 Specimen Type: BLOOD No comment entered. Ordering Provider: EZE HENDERSON Report Released Date/Time: Apr 22, 2024 08:13 AM Reporting Lab: [address] [address] Performing Lab: [address] [address] [facility] CBC/PLT MCH [ENTITIC MASS] BY AUTOMATED COUNT 28.3 pg 27.0 - 31.0 05/25 Specimen Type: BLOOD No comment entered. Ordering Provider: EZE HENDERSON Report Released Date/Time: Apr 22, 2024 08:13 AM Reporting Lab: [address] [address] Performing Lab: [address] [address] [facility] CBC/PLT MCHC [MASS/VOLUM E] BY AUTOMATED COUNT 32.3 g/dL 32.0 - 36.0 05/25 Specimen Type: BLOOD No comment entered. Ordering Provider: EZE HENDERSON Report Released Date/Time: Apr 22, 2024 08:13 AM Reporting Lab: [address] [address] Performing Lab: [address] [address] [facility] CBC/PLT PLATELETS [#/VOLUME] IN BLOOD 232 10*3/u L 150 - 450 05/25 Specimen Type: BLOOD No comment entered. Ordering Provider: EZE HENDERSON Report Released Date/Time: Apr 22, 2024 08:13 AM Reporting Lab: [address] [address] Performing Lab: [place] [id number] [place] [address] CBC/PLT PLATELET MEAN VOLUME [ENTITIC VOLUME] IN BLOOD 11.0 fL 9.0 - 13.1 05/25 Specimen Type: BLOOD No comment entered. Ordering Provider: EZE HENDERSON Report Released Date/Time: Apr 22, 2024 08:13 AM Reporting Lab: [place] [phone] Performing Lab: [place] [id number] [place] [address] CBC/PLT ERYTHROCYTE DISTRIBUTIO N WIDTH [ENTITIC VOLUME] BY AUTOMATED COUNT 15.4 11.0 - 16.0 05/25 Specimen Type: BLOOD No comment entered. Ordering Provider: EZE HENDERSON Report Released Date/Time: Apr 22, 2024 08:13 AM Reporting Lab: [place] [phone] Performing Lab: [place] [phone] [place] [address] CBC/PLT NUCLEATED ERYTHROCYTE S/100 ERYTHROCYTE S IN BLOOD 0.0 0.0 - 0.0 05/25 Specimen Type: BLOOD No comment entered. Ordering Provider: EZE HENDERSON Report Released Date/Time: Apr 22, 2024 08:13 AM Reporting Lab: [address] [address] Performing Lab: [address] [address] [facility] DRUG SCREEN EXPANDED IN-HOUSE TETRAHYDROC ANNABINOL [PRESENCE] IN URINE NEG Cutoff < 50 - 50 02/16 Specimen Type: URINE Comment: Screening method results are unconfirmed and are for medical use only. Unconfirmed screening results must not be used for non-medical purposes. Opiates test most sensitive for morphine, codeine and heroin and less sensitive for hydrocodone and hydromorpho ne where higher concentrati ons are needed for cut-off detection. Drugs of abuse screening is a preliminary analytical test result. A more specific alternate chemical method (GC/MS) must be used to obtain a confirmed analytical result. This assay provides a preliminary unconfirmed analytical test result that may be suitable for clinical management of patients in certain situations. Drug-test results should be interpreted in the context of clinical information . Patient metabolic characteris tics can affect test outcome. Ordering Provider: BUCK HUNT Report Released Date/Time: Feb 06, 2024 03:45 PM Reporting Lab: [address] [address] Performing Lab: [place] [id number] [place] [address] DRUG SCREEN EXPANDED IN-HOUSE AMPHETAMINE S [PRESENCE] IN URINE NEG Cutoff < 1000 - 1000 02/16 Specimen Type: URINE Comment: Screening method results are unconfirmed and are for medical use only. Unconfirmed screening results must not be used for non-medical purposes. Opiates test most sensitive for morphine, codeine and heroin and less sensitive for hydrocodone and hydromorpho ne where higher concentrati ons are needed for cut-off detection. Drugs of abuse screening is a preliminary analytical test result. A more specific alternate chemical method (GC/MS) must be used to obtain a confirmed analytical result. This assay provides a preliminary unconfirmed analytical test result that may be suitable for clinical management of patients in certain situations. Drug-test results should be interpreted in the context of clinical information . Patient metabolic characteris tics can affect test outcome. Ordering Provider: BUCK HUNT Report Released Date/Time: Feb 06, 2024 03:45 PM Reporting Lab: [address] [address] Performing Lab: [address] [address] [facility] DRUG SCREEN EXPANDED IN-HOUSE BARBITURATE S [PRESENCE] IN URINE BY SCREEN METHOD NEG Cutoff < 200 - 200 02/16 Specimen Type: URINE Comment: Screening method results are unconfirmed and are for medical use only. Unconfirmed screening results must not be used for non-medical purposes. Opiates test most sensitive for morphine, codeine and heroin and less sensitive for hydrocodone and hydromorpho ne where higher concentrati ons are needed for cut-off detection. Drugs of abuse screening is a preliminary analytical test result. A more specific alternate chemical method (GC/MS) must be used to obtain a confirmed analytical result. This assay provides a preliminary unconfirmed analytical test result that may be suitable for clinical management of patients in certain situations. Drug-test results should be interpreted in the context of clinical information . Patient metabolic characteris tics can affect test outcome. Ordering Provider: BUCK HUNT Report Released Date/Time: Feb 06, 2024 03:45 PM Reporting Lab: [address] [address] Performing Lab: [place] [phone] [place] [address] DRUG SCREEN EXPANDED IN-HOUSE BENZODIAZEP JUAN FRANCISCO [PRESENCE] IN URINE BY SCREEN METHOD NEG Cutoff < 200 - 200 02/16 Specimen Type: URINE Comment: Screening method results are unconfirmed and are for medical use only. Unconfirmed screening results must not be used for non-medical purposes. Opiates test most sensitive for morphine, codeine and heroin and less sensitive for hydrocodone and hydromorpho ne where higher concentrati ons are needed for cut-off detection. Drugs of abuse screening is a preliminary analytical test result. A more specific alternate chemical method (GC/MS) must be used to obtain a confirmed analytical result. This assay provides a preliminary unconfirmed analytical test result that may be suitable for clinical management of patients in certain situations. Drug-test results should be interpreted in the context of clinical information . Patient metabolic characteris tics can affect test outcome. Ordering Provider: BUCK HUNT Report Released Date/Time: Feb 06, 2024 03:45 PM Reporting Lab: [address] [address] Performing Lab: [place] [phone] [place] [address] DRUG SCREEN EXPANDED IN-HOUSE BENZOYLECGO NINE [PRESENCE] IN URINE NEG Cutoff < 300 - 300 02/16 Specimen Type: URINE Comment: Screening method results are unconfirmed and are for medical use only. Unconfirmed screening results must not be used for non-medical purposes. Opiates test most sensitive for morphine, codeine and heroin and less sensitive for hydrocodone and hydromorpho ne where higher concentrati ons are needed for cut-off detection. Drugs of abuse screening is a preliminary analytical test result. A more specific alternate chemical method (GC/MS) must be used to obtain a confirmed analytical result. This assay provides a preliminary unconfirmed analytical test result that may be suitable for clinical management of patients in certain situations. Drug-test results should be interpreted in the context of clinical information . Patient metabolic characteris tics can affect test outcome. Ordering Provider: BUCK HUNT Report Released Date/Time: Feb 06, 2024 03:45 PM Reporting Lab: [place] [phone] Performing Lab: [place] [phone] [facility] DRUG SCREEN EXPANDED IN-HOUSE OPIATES [PRESENCE] IN URINE BY SCREEN METHOD NEG Cutoff < 300 - 300 02/16 Specimen Type: URINE Comment: Screening method results are unconfirmed and are for medical use only. Unconfirmed screening results must not be used for non-medical purposes. Opiates test most sensitive for morphine, codeine and heroin and less sensitive for hydrocodone and hydromorpho ne where higher concentrati ons are needed for cut-off detection. Drugs of abuse screening is a preliminary analytical test result. A more specific alternate chemical method (GC/MS) must be used to obtain a confirmed analytical result. This assay provides a preliminary unconfirmed analytical test result that may be suitable for clinical management of patients in certain situations. Drug-test results should be interpreted in the context of clinical information . Patient metabolic characteris tics can affect test outcome. Ordering Provider: BUCK HUNT Report Released Date/Time: Feb 06, 2024 03:45 PM Reporting Lab: [address] [address] Performing Lab: [place] [phone] [facility] DRUG SCREEN EXPANDED IN-HOUSE METHADONE [PRESENCE] IN URINE NEG Cutoff < 300 - 300 02/16 Specimen Type: URINE Comment: Screening method results are unconfirmed and are for medical use only. Unconfirmed screening results must not be used for non-medical purposes. Opiates test most sensitive for morphine, codeine and heroin and less sensitive for hydrocodone and hydromorpho ne where higher concentrati ons are needed for cut-off detection. Drugs of abuse screening is a preliminary analytical test result. A more specific alternate chemical method (GC/MS) must be used to obtain a confirmed analytical result. This assay provides a preliminary unconfirmed analytical test result that may be suitable for clinical management of patients in certain situations. Drug-test results should be interpreted in the context of clinical information . Patient metabolic characteris tics can affect test outcome. Ordering Provider: BUCK HUNT Report Released Date/Time: Feb 06, 2024 03:45 PM Reporting Lab: [address] [address] Performing Lab: [address] [address] [facility] DRUG SCREEN EXPANDED IN-HOUSE OXYCODONE [PRESENCE] IN URINE NEG Cutoff < 200 - 200 02/16 Specimen Type: URINE Comment: Screening method results are unconfirmed and are for medical use only. Unconfirmed screening results must not be used for non-medical purposes. Opiates test most sensitive for morphine, codeine and heroin and less sensitive for hydrocodone and hydromorpho ne where higher concentrati ons are needed for cut-off detection. Drugs of abuse screening is a preliminary analytical test result. A more specific alternate chemical method (GC/MS) must be used to obtain a confirmed analytical result. This assay provides a preliminary unconfirmed analytical test result that may be suitable for clinical management of patients in certain situations. Drug-test results should be interpreted in the context of clinical information . Patient metabolic characteris tics can affect test outcome. Ordering Provider: BUCK HUNT Report Released Date/Time: Feb 06, 2024 03:45 PM Reporting Lab: [address] [address] Performing Lab: [address] [address] [facility] DRUG SCREEN EXPANDED IN-HOUSE BUPRENORPHI NE+NORBUPRE NORPHINE [PRESENCE] IN URINE NEG Cutoff < 5 - 5 02/16 Specimen Type: URINE Comment: Screening method results are unconfirmed and are for medical use only. Unconfirmed screening results must not be used for non-medical purposes. Opiates test most sensitive for morphine, codeine and heroin and less sensitive for hydrocodone and hydromorpho ne where higher concentrati ons are needed for cut-off detection. Drugs of abuse screening is a preliminary analytical test result. A more specific alternate chemical method (GC/MS) must be used to obtain a confirmed analytical result. This assay provides a preliminary unconfirmed analytical test result that may be suitable for clinical management of patients in certain situations. Drug-test results should be interpreted in the context of clinical information . Patient metabolic characteris tics can affect test outcome. Ordering Provider: BUCK HUNT Report Released Date/Time: Feb 06, 2024 03:45 PM Reporting Lab: [address] [address] Performing Lab: [place] [phone] [facility] DRUG SCREEN EXPANDED IN-HOUSE FENTANYL SCREEN IN-HOUSE NEG Cutoff < 1 - 1 02/16 Specimen Type: URINE Comment: Screening method results are unconfirmed and are for medical use only. Unconfirmed screening results must not be used for non-medical purposes. Opiates test most sensitive for morphine, codeine and heroin and less sensitive for hydrocodone and hydromorpho ne where higher concentrati ons are needed for cut-off detection. Drugs of abuse screening is a preliminary analytical test result. A more specific alternate chemical method (GC/MS) must be used to obtain a confirmed analytical result. This assay provides a preliminary unconfirmed analytical test result that may be suitable for clinical management of patients in certain situations. Drug-test results should be interpreted in the context of clinical information . Patient metabolic characteris tics can affect test outcome. Ordering Provider: BUCK HUNT Report Released Date/Time: Feb 06, 2024 03:45 PM Reporting Lab: [address] [phone] Performing Lab: [address] [address] [facility] MICROALBU MIN/CREAT RATIO CREATININE [MASS/VOLUM E] IN URINE 102.7 mg/dL 02/16 Specimen Type: URINE Comment: Unable to calculate ratio due to low Microalbumi n result. Ordering Provider: BUCK HUNT Report Released Date/Time: Feb 06, 2024 03:45 PM Reporting Lab: [place] [phone] Performing Lab: [place] [phone] [facility] MICROALBU MIN/CREAT RATIO MICROALBUMI N [MASS/VOLUM E] IN URINE <5.0mg /L 0.0 - 30.0 02/16 Specimen Type: URINE Comment: Unable to calculate ratio due to low Microalbumi n result. Ordering Provider: BUCK HUNT Report Released Date/Time: Feb 06, 2024 03:45 PM Reporting Lab: [place] [phone] Performing Lab: [place] [phone] [facility] MICROALBU MIN/CREAT RATIO MICROALBUMI N/CREATININ E [MASS RATIO] IN URINE commen tug/mg {creat } 02/16 Specimen Type: URINE Comment: Unable to calculate ratio due to low Microalbumi n result. Ordering Provider: BUCK HUNT Report Released Date/Time: Feb 06, 2024 03:45 PM Reporting Lab: [address] [phone] Performing Lab: [place] [phone] [facility] PANEL 1 CREATININE [MASS/VOLUM E] IN SERUM OR PLASMA 0.87 mg/dL 0.72 - 1.25 02/16 Specimen Type: PLASMA Comment: Estimated Glomerular Filtration Rate (eGFR) calculated using the 2020 Chronic Kidney Disease-Epi demiology (CKD-EPI) Collaborati on creatinine equation; units of measure are mL/min/1.73 m2. Results are only valid for adults (>=18 years) whose serum creatinine is in a steady state. eGFR calculation s are not valid for patients with acute kidney injury and for patients on dialysis. Creatinine- based estimates of kidney function may also be inaccurate in patients with reduced creatinine generation due to decreased muscle mass (e.g., malnutritio n, severe hypoalbumin emia, sarcopenia, chronic neuromuscul ar disease, amputations , severe heart failure or liver disease) and in patients with increased creatinine generation due to increased muscle mass (e.g., muscle builders, anabolic steroids) or increased dietary intake. As drug clearance is proportiona l to total GFR and not GFR indexed to body surface area (BSA), in individuals with a BSA substantial ly different than 1.73 m2, drug dosing should be based on the reported eGFR value de-indexed from BSA by multiplying by the individual' s BSA and dividing by 1.73. CKD is diagnosed based on abnormaliti es of kidney structure or function, present for >3 months, with implication s for health and disease. CKD is classified and staged based on cause, eGFR and albuminuria (quantified as urine albumin to creatinine ratio). An eGFR >60 mL/min/1.73 m2 in the absence of increased urine albumin excretion or structural abnormaliti es does not represent CKD. eGFR CKD Interpretat ion (mL/min/1.7 3 m2) stage >=90 G1 Normal 60-89 G2 Mild decrease 45-59 G3A Mild to moderate decrease 30-44 G3B Moderate to severe decrease 15-29 G4 Severe decrease <15 G5 Kidney failure Ordering Provider: BUCK HUNT Report Released Date/Time: Feb 06, 2024 03:45 PM Reporting Lab: SHIRA MORGAN [address] [phone] Performing Lab: SHIRA MORGAN [address] [address] [facility] PANEL 1 UREA NITROGEN [MASS/VOLUM E] IN SERUM OR PLASMA 13 mg/dL 02/16 Specimen Type: PLASMA Comment: Estimated Glomerular Filtration Rate (eGFR) calculated using the 2020 Chronic Kidney Disease-Epi demiology (CKD-EPI) Collaborati on creatinine equation; units of measure are mL/min/1.73 m2. Results are only valid for adults (>=18 years) whose serum creatinine is in a steady state. eGFR calculation s are not valid for patients with acute kidney injury and for patients on dialysis. Creatinine- based estimates of kidney function may also be inaccurate in patients with reduced creatinine generation due to decreased muscle mass (e.g., malnutritio n, severe hypoalbumin emia, sarcopenia, chronic neuromuscul ar disease, amputations , severe heart failure or liver disease) and in patients with increased creatinine generation due to increased muscle mass (e.g., muscle builders, anabolic steroids) or increased dietary intake. As drug clearance is proportiona l to total GFR and not GFR indexed to body surface area (BSA), in individuals with a BSA substantial ly different than 1.73 m2, drug dosing should be based on the reported eGFR value de-indexed from BSA by multiplying by the individual' s BSA and dividing by 1.73. CKD is diagnosed based on abnormaliti es of kidney structure or function, present for >3 months, with implication s for health and disease. CKD is classified and staged based on cause, eGFR and albuminuria (quantified as urine albumin to creatinine ratio). An eGFR >60 mL/min/1.73 m2 in the absence of increased urine albumin excretion or structural abnormaliti es does not represent CKD. eGFR CKD Interpretat ion (mL/min/1.7 3 m2) stage >=90 G1 Normal 60-89 G2 Mild decrease 45-59 G3A Mild to moderate decrease 30-44 G3B Moderate to severe decrease 15-29 G4 Severe decrease <15 G5 Kidney failure Ordering Provider: BUCK HUNT Report Released Date/Time: Feb 06, 2024 03:45 PM Reporting Lab: SHIR[facility] MORGAN [address] [phone] Performing Lab: SHIRA MORGAN [address] [address] [facility] PANEL 1 GLUCOSE [MASS/VOLUM E] IN SERUM OR PLASMA 119 mg/dL 74 - 100 02/16 H Specimen Type: PLASMA Comment: Estimated Glomerular Filtration Rate (eGFR) calculated using the 2020 Chronic Kidney Disease-Epi demiology (CKD-EPI) Collaborati on creatinine equation; units of measure are mL/min/1.73 m2. Results are only valid for adults (>=18 years) whose serum creatinine is in a steady state. eGFR calculation s are not valid for patients with acute kidney injury and for patients on dialysis. Creatinine- based estimates of kidney function may also be inaccurate in patients with reduced creatinine generation due to decreased muscle mass (e.g., malnutritio n, severe hypoalbumin emia, sarcopenia, chronic neuromuscul ar disease, amputations , severe heart failure or liver disease) and in patients with increased creatinine generation due to increased muscle mass (e.g., muscle builders, anabolic steroids) or increased dietary intake. As drug clearance is proportiona l to total GFR and not GFR indexed to body surface area (BSA), in individuals with a BSA substantial ly different than 1.73 m2, drug dosing should be based on the reported eGFR value de-indexed from BSA by multiplying by the individual' s BSA and dividing by 1.73. CKD is diagnosed based on abnormaliti es of kidney structure or function, present for >3 months, with implication s for health and disease. CKD is classified and staged based on cause, eGFR and albuminuria (quantified as urine albumin to creatinine ratio). An eGFR >60 mL/min/1.73 m2 in the absence of increased urine albumin excretion or structural abnormaliti es does not represent CKD. eGFR CKD Interpretat ion (mL/min/1.7 3 m2) stage >=90 G1 Normal 60-89 G2 Mild decrease 45-59 G3A Mild to moderate decrease 30-44 G3B Moderate to severe decrease 15-29 G4 Severe decrease <15 G5 Kidney failure Ordering Provider: BUCK HUNT Report Released Date/Time: Feb 06, 2024 03:45 PM Reporting Lab: [facility]IRA MORGAN [facility] [address] [facility] [address] Performing Lab: SHIRA MORGAN [facility] [address] [facility] [phone] [facility] PANEL 1 SODIUM [MOLES/VOLU ME] IN SERUM OR PLASMA 133 mmol/L 136 - 145 02/16 L Specimen Type: PLASMA Comment: Estimated Glomerular Filtration Rate (eGFR) calculated using the 2020 Chronic Kidney Disease-Epi demiology (CKD-EPI) Collaborati on creatinine equation; units of measure are mL/min/1.73 m2. Results are only valid for adults (>=18 years) whose serum creatinine is in a steady state. eGFR calculation s are not valid for patients with acute kidney injury and for patients on dialysis. Creatinine- based estimates of kidney function may also be inaccurate in patients with reduced creatinine generation due to decreased muscle mass (e.g., malnutritio n, severe hypoalbumin emia, sarcopenia, chronic neuromuscul ar disease, amputations , severe heart failure or liver disease) and in patients with increased creatinine generation due to increased muscle mass (e.g., muscle builders, anabolic steroids) or increased dietary intake. As drug clearance is proportiona l to total GFR and not GFR indexed to body surface area (BSA), in individuals with a BSA substantial ly different than 1.73 m2, drug dosing should be based on the reported eGFR value de-indexed from BSA by multiplying by the individual' s BSA and dividing by 1.73. CKD is diagnosed based on abnormaliti es of kidney structure or function, present for >3 months, with implication s for health and disease. CKD is classified and staged based on cause, eGFR and albuminuria (quantified as urine albumin to creatinine ratio). An eGFR >60 mL/min/1.73 m2 in the absence of increased urine albumin excretion or structural abnormaliti es does not represent CKD. eGFR CKD Interpretat ion (mL/min/1.7 3 m2) stage >=90 G1 Normal 60-89 G2 Mild decrease 45-59 G3A Mild to moderate decrease 30-44 G3B Moderate to severe decrease 15-29 G4 Severe decrease <15 G5 Kidney failure Ordering Provider: BUCK HUNT Report Released Date/Time: Feb 06, 2024 03:45 PM Reporting Lab: SHIRA MORGAN [facility] [address] [facility] [address] Performing Lab: SHIRA MORGAN [address] [address] [facility] PANEL 1 POTASSIUM [MOLES/VOLU ME] IN SERUM OR PLASMA 4.4 mmol/L 3.5 - 5.1 02/16 Specimen Type: PLASMA Comment: Estimated Glomerular Filtration Rate (eGFR) calculated using the 2020 Chronic Kidney Disease-Epi demiology (CKD-EPI) Collaborati on creatinine equation; units of measure are mL/min/1.73 m2. Results are only valid for adults (>=18 years) whose serum creatinine is in a steady state. eGFR calculation s are not valid for patients with acute kidney injury and for patients on dialysis. Creatinine- based estimates of kidney function may also be inaccurate in patients with reduced creatinine generation due to decreased muscle mass (e.g., malnutritio n, severe hypoalbumin emia, sarcopenia, chronic neuromuscul ar disease, amputations , severe heart failure or liver disease) and in patients with increased creatinine generation due to increased muscle mass (e.g., muscle builders, anabolic steroids) or increased dietary intake. As drug clearance is proportiona l to total GFR and not GFR indexed to body surface area (BSA), in individuals with a BSA substantial ly different than 1.73 m2, drug dosing should be based on the reported eGFR value de-indexed from BSA by multiplying by the individual' s BSA and dividing by 1.73. CKD is diagnosed based on abnormaliti es of kidney structure or function, present for >3 months, with implication s for health and disease. CKD is classified and staged based on cause, eGFR and albuminuria (quantified as urine albumin to creatinine ratio). An eGFR >60 mL/min/1.73 m2 in the absence of increased urine albumin excretion or structural abnormaliti es does not represent CKD. eGFR CKD Interpretat ion (mL/min/1.7 3 m2) stage >=90 G1 Normal 60-89 G2 Mild decrease 45-59 G3A Mild to moderate decrease 30-44 G3B Moderate to severe decrease 15-29 G4 Severe decrease <15 G5 Kidney failure Ordering Provider: BUCK HUNT Report Released Date/Time: Feb 06, 2024 03:45 PM Reporting Lab: SHIRA MORGAN [address] [address] Performing Lab: SHIRA [address] [address] [facility] PANEL 1 CHLORIDE [MOLES/VOLU ME] IN SERUM OR PLASMA 100 mmol/L 98 - 107 02/16 Specimen Type: PLASMA Comment: Estimated Glomerular Filtration Rate (eGFR) calculated using the 2020 Chronic Kidney Disease-Epi demiology (CKD-EPI) Collaborati on creatinine equation; units of measure are mL/min/1.73 m2. Results are only valid for adults (>=18 years) whose serum creatinine is in a steady state. eGFR calculation s are not valid for patients with acute kidney injury and for patients on dialysis. Creatinine- based estimates of kidney function may also be inaccurate in patients with reduced creatinine generation due to decreased muscle mass (e.g., malnutritio n, severe hypoalbumin emia, sarcopenia, chronic neuromuscul ar disease, amputations , severe heart failure or liver disease) and in patients with increased creatinine generation due to increased muscle mass (e.g., muscle builders, anabolic steroids) or increased dietary intake. As drug clearance is proportiona l to total GFR and not GFR indexed to body surface area (BSA), in individuals with a BSA substantial ly different than 1.73 m2, drug dosing should be based on the reported eGFR value de-indexed from BSA by multiplying by the individual' s BSA and dividing by 1.73. CKD is diagnosed based on abnormaliti es of kidney structure or function, present for >3 months, with implication s for health and disease. CKD is classified and staged based on cause, eGFR and albuminuria (quantified as urine albumin to creatinine ratio). An eGFR >60 mL/min/1.73 m2 in the absence of increased urine albumin excretion or structural abnormaliti es does not represent CKD. eGFR CKD Interpretat ion (mL/min/1.7 3 m2) stage >=90 G1 Normal 60-89 G2 Mild decrease 45-59 G3A Mild to moderate decrease 30-44 G3B Moderate to severe decrease 15-29 G4 Severe decrease <15 G5 Kidney failure Ordering Provider: BUCK HUNT Report Released Date/Time: Feb 06, 2024 03:45 PM Reporting [facility] [address] [address] Performing Lab: [facility]ira [address] [address] [facility] PANEL 1 CARBON DIOXIDE, TOTAL [MOLES/VOLU ME] IN SERUM OR PLASMA 23 mmol/L 02/16 Specimen Type: PLASMA Comment: Estimated Glomerular Filtration Rate (eGFR) calculated using the 2020 Chronic Kidney Disease-Epi demiology (CKD-EPI) Collaborati on creatinine equation; units of measure are mL/min/1.73 m2. Results are only valid for adults (>=18 years) whose serum creatinine is in a steady state. eGFR calculation s are not valid for patients with acute kidney injury and for patients on dialysis. Creatinine- based estimates of kidney function may also be inaccurate in patients with reduced creatinine generation due to decreased muscle mass (e.g., malnutritio n, severe hypoalbumin emia, sarcopenia, chronic neuromuscul ar disease, amputations , severe heart failure or liver disease) and in patients with increased creatinine generation due to increased muscle mass (e.g., muscle builders, anabolic steroids) or increased dietary intake. As drug clearance is proportiona l to total GFR and not GFR indexed to body surface area (BSA), in individuals with a BSA substantial ly different than 1.73 m2, drug dosing should be based on the reported eGFR value de-indexed from BSA by multiplying by the individual' s BSA and dividing by 1.73. CKD is diagnosed based on abnormaliti es of kidney structure or function, present for >3 months, with implication s for health and disease. CKD is classified and staged based on cause, eGFR and albuminuria (quantified as urine albumin to creatinine ratio). An eGFR >60 mL/min/1.73 m2 in the absence of increased urine albumin excretion or structural abnormaliti es does not represent CKD. eGFR CKD Interpretat ion (mL/min/1.7 3 m2) stage >=90 G1 Normal 60-89 G2 Mild decrease 45-59 G3A Mild to moderate decrease 30-44 G3B Moderate to severe decrease 15-29 G4 Severe decrease <15 G5 Kidney failure Ordering Provider: BUCK HUNT Report Released Date/Time: Feb 06, 2024 03:45 PM Reporting Lab: SHIRA MORGAN [address] [address] Performing Lab: SHIRA MORGAN [address] [address] [facility] PANEL 1 CALCIUM [MASS/VOLUM E] IN SERUM OR PLASMA 9.0 mg/dL 8.4 - 10.2 02/16 Specimen Type: PLASMA Comment: Estimated Glomerular Filtration Rate (eGFR) calculated using the 2020 Chronic Kidney Disease-Epi demiology (CKD-EPI) Collaborati on creatinine equation; units of measure are mL/min/1.73 m2. Results are only valid for adults (>=18 years) whose serum creatinine is in a steady state. eGFR calculation s are not valid for patients with acute kidney injury and for patients on dialysis. Creatinine- based estimates of kidney function may also be inaccurate in patients with reduced creatinine generation due to decreased muscle mass (e.g., malnutritio n, severe hypoalbumin emia, sarcopenia, chronic neuromuscul ar disease, amputations , severe heart failure or liver disease) and in patients with increased creatinine generation due to increased muscle mass (e.g., muscle builders, anabolic steroids) or increased dietary intake. As drug clearance is proportiona l to total GFR and not GFR indexed to body surface area (BSA), in individuals with a BSA substantial ly different than 1.73 m2, drug dosing should be based on the reported eGFR value de-indexed from BSA by multiplying by the individual' s BSA and dividing by 1.73. CKD is diagnosed based on abnormaliti es of kidney structure or function, present for >3 months, with implication s for health and disease. CKD is classified and staged based on cause, eGFR and albuminuria (quantified as urine albumin to creatinine ratio). An eGFR >60 mL/min/1.73 m2 in the absence of increased urine albumin excretion or structural abnormaliti es does not represent CKD. eGFR CKD Interpretat ion (mL/min/1.7 3 m2) stage >=90 G1 Normal 60-89 G2 Mild decrease 45-59 G3A Mild to moderate decrease 30-44 G3B Moderate to severe decrease 15-29 G4 Severe decrease <15 G5 Kidney failure Ordering Provider: BUCK HUNT Report Released Date/Time: Feb 06, 2024 03:45 PM Reporting Lab: SHIRA MORGAN [address] [address] Performing Lab: AAMIR[address] [address] [facility] PANEL 1 ANION GAP 3 IN SERUM OR PLASMA 10 meq/L 3 - 19 02/16 Specimen Type: PLASMA Comment: Estimated Glomerular Filtration Rate (eGFR) calculated using the 2020 Chronic Kidney Disease-Epi demiology (CKD-EPI) Collaborati on creatinine equation; units of measure are mL/min/1.73 m2. Results are only valid for adults (>=18 years) whose serum creatinine is in a steady state. eGFR calculation s are not valid for patients with acute kidney injury and for patients on dialysis. Creatinine- based estimates of kidney function may also be inaccurate in patients with reduced creatinine generation due to decreased muscle mass (e.g., malnutritio n, severe hypoalbumin emia, sarcopenia, chronic neuromuscul ar disease, amputations , severe heart failure or liver disease) and in patients with increased creatinine generation due to increased muscle mass (e.g., muscle builders, anabolic steroids) or increased dietary intake. As drug clearance is proportiona l to total GFR and not GFR indexed to body surface area (BSA), in individuals with a BSA substantial ly different than 1.73 m2, drug dosing should be based on the reported eGFR value de-indexed from BSA by multiplying by the individual' s BSA and dividing by 1.73. CKD is diagnosed based on abnormaliti es of kidney structure or function, present for >3 months, with implication s for health and disease. CKD is classified and staged based on cause, eGFR and albuminuria (quantified as urine albumin to creatinine ratio). An eGFR >60 mL/min/1.73 m2 in the absence of increased urine albumin excretion or structural abnormaliti es does not represent CKD. eGFR CKD Interpretat ion (mL/min/1.7 3 m2) stage >=90 G1 Normal 60-89 G2 Mild decrease 45-59 G3A Mild to moderate decrease 30-44 G3B Moderate to severe decrease 15-29 G4 Severe decrease <15 G5 Kidney failure Ordering Provider: BUCK HUNT Report Released Date/Time: Feb 06, 2024 03:45 PM Reporting Lab: SHIRA MORGAN [address] [address] Performing Lab: SHIRA MORGAN [address] [address] [facility] 1 GLOMERULAR FILTRATION RATE/1.73 SQ M.PREDICTED [VOLUME RATE/AREA] IN SERUM, PLASMA OR BLOOD BY CREATININE- BASED FORMULA (CKD-EPI 2020) 88 02/16 Specimen Type: PLASMA Comment: Estimated Glomerular Filtration Rate (eGFR) calculated using the 2020 Chronic Kidney Disease-Epi demiology (CKD-EPI) Collaborati on creatinine equation; units of measure are mL/min/1.73 m2. Results are only valid for adults (>=18 years) whose serum creatinine is in a steady state. eGFR calculation s are not valid for patients with acute kidney injury and for patients on dialysis. Creatinine- based estimates of kidney function may also be inaccurate in patients with reduced creatinine generation due to decreased muscle mass (e.g., malnutritio n, severe hypoalbumin emia, sarcopenia, chronic neuromuscul ar disease, amputations , severe heart failure or liver disease) and in patients with increased creatinine generation due to increased muscle mass (e.g., muscle builders, anabolic steroids) or increased dietary intake. As drug clearance is proportiona l to total GFR and not GFR indexed to body surface area (BSA), in individuals with a BSA substantial ly different than 1.73 m2, drug dosing should be based on the reported eGFR value de-indexed from BSA by multiplying by the individual' s BSA and dividing by 1.73. CKD is diagnosed based on abnormaliti es of kidney structure or function, present for >3 months, with implication s for health and disease. CKD is classified and staged based on cause, eGFR and albuminuria (quantified as urine albumin to creatinine ratio). An eGFR >60 mL/min/1.73 m2 in the absence of increased urine albumin excretion or structural abnormaliti es does not represent CKD. eGFR CKD Interpretat ion (mL/min/1.7 3 m2) stage >=90 G1 Normal 60-89 G2 Mild decrease 45-59 G3A Mild to moderate decrease 30-44 G3B Moderate to severe decrease 15-29 G4 Severe decrease <15 G5 Kidney failure Ordering Provider: BUCK HUNT Report Released Date/Time: Feb 06, 2024 03:45 PM Reporting Lab: [place] [id number] Performing Lab: [address] CBC/PLT LEUKOCYTES [#/VOLUME] IN BLOOD BY AUTOMATED COUNT 7.7 10*3/u L 5.0 - 10.0 02/05 Specimen Type: BLOOD No comment entered. Ordering Provider: BUCK HUNT Report Released Date/Time: Feb 06, 2024 10:44 AM Reporting Lab: [place] [phone] Performing Lab: [address] CBC/PLT ERYTHROCYTE S [#/VOLUME] IN BLOOD BY AUTOMATED COUNT 4.27 10*6/u L 4.6 - 6.2 02/05 L Specimen Type: BLOOD No comment entered. Ordering Provider: BUCK HUNT Report Released Date/Time: Feb 06, 2024 10:44 AM Reporting Lab: [address] [address] Performing Lab: [address] [phone] [place] [address] CBC/PLT HEMOGLOBIN [MASS/VOLUM E] IN BLOOD 12.2 g/dL 14.0 - 18.0 02/05 L Specimen Type: BLOOD No comment entered. Ordering Provider: BUCK HUNT Report Released Date/Time: Feb 06, 2024 10:44 AM Reporting Lab: [address] [address] Performing Lab: [address] [address] [facility] CBC/PLT HEMATOCRIT [VOLUME FRACTION] OF BLOOD BY AUTOMATED COUNT 37.5 42.0 - 52.0 02/05 L Specimen Type: BLOOD No comment entered. Ordering Provider: BUCK HUNT Report Released Date/Time: Feb 06, 2024 10:44 AM Reporting Lab: [address] [address] Performing Lab: [address] [address] [facility] CBC/PLT MCV [ENTITIC VOLUME] BY AUTOMATED COUNT 87.8 fL 80.0 - 94.0 02/05 Specimen Type: BLOOD No comment entered. Ordering Provider: BUCK HUNT Report Released Date/Time: Feb 06, 2024 10:44 AM Reporting Lab: [address] [address] Performing Lab: [address] [address] [facility] CBC/PLT MCH [ENTITIC MASS] BY AUTOMATED COUNT 28.6 pg 27.0 - 31.0 02/05 Specimen Type: BLOOD No comment entered. Ordering Provider: BUCK HUNT Report Released Date/Time: Feb 06, 2024 10:44 AM Reporting Lab: [address] [address] Performing Lab: [address] [phone] [place] [address] CBC/PLT [facility] [MASS/VOLUM E] BY AUTOMATED COUNT 32.5 g/dL 32.0 - 36.0 02/05 Specimen Type: BLOOD No comment entered. Ordering Provider: BUCK HUNT Report Released Date/Time: Feb 06, 2024 10:44 AM Reporting Lab: [place] [id number] Performing Lab: [place] [phone] [place] [address] CBC/PLT PLATELETS [#/VOLUME] IN BLOOD 236 10*3/u L 150 - 450 02/05 Specimen Type: BLOOD No comment entered. Ordering Provider: BUCK HUNT Report Released Date/Time: Feb 06, 2024 10:44 AM Reporting Lab: [address] [address] Performing Lab: [place] [id number] [place] [address] CBC/PLT PLATELET MEAN VOLUME [ENTITIC VOLUME] IN BLOOD 11.0 fL 9.0 - 13.1 02/05 Specimen Type: BLOOD No comment entered. Ordering Provider: BUCK HUNT Report Released Date/Time: Feb 06, 2024 10:44 AM Reporting Lab: [address] [address] Performing Lab: [place] [id number] [place] [address] CBC/PLT ERYTHROCYTE DISTRIBUTIO N WIDTH [ENTITIC VOLUME] BY AUTOMATED COUNT 14.0 11.0 - 16.0 02/05 Specimen Type: BLOOD No comment entered. Ordering Provider: BUCK HUNT Report Released Date/Time: Feb 06, 2024 10:44 AM Reporting Lab: [address] [address] Performing Lab: [address] [id number] [place] [address] CBC/PLT NUCLEATED ERYTHROCYTE S/100 ERYTHROCYTE S IN BLOOD 0.0 0.0 - 0.0 02/05 Specimen Type: BLOOD No comment entered. Ordering Provider: BUCK HUNT Report Released Date/Time: Feb 06, 2024 10:44 AM Reporting Lab: [facility] [address] [facility] [address] Performing Lab: SHIRA MORGAN [address] [address] [facility] PANEL 5 CREATININE [MASS/VOLUM E] IN SERUM OR PLASMA 0.91 mg/dL 0.72 - 1.25 02/05 Specimen Type: PLASMA Comment: Estimated Glomerular Filtration Rate (eGFR) calculated using the 2020 Chronic Kidney Disease-Epi demiology (CKD-EPI) Collaborati on creatinine equation; units of measure are mL/min/1.73 m2. Results are only valid for adults (>=18 years) whose serum creatinine is in a steady state. eGFR calculation s are not valid for patients with acute kidney injury and for patients on dialysis. Creatinine- based estimates of kidney function may also be inaccurate in patients with reduced creatinine generation due to decreased muscle mass (e.g., malnutritio n, severe hypoalbumin emia, sarcopenia, chronic neuromuscul ar disease, amputations , severe heart failure or liver disease) and in patients with increased creatinine generation due to increased muscle mass (e.g., muscle builders, anabolic steroids) or increased dietary intake. As drug clearance is proportiona l to total GFR and not GFR indexed to body surface area (BSA), in individuals with a BSA substantial ly different than 1.73 m2, drug dosing should be based on the reported eGFR value de-indexed from BSA by multiplying by the individual' s BSA and dividing by 1.73. CKD is diagnosed based on abnormaliti es of kidney structure or function, present for >3 months, with implication s for health and disease. CKD is classified and staged based on cause, eGFR and albuminuria (quantified as urine albumin to creatinine ratio). An eGFR >60 mL/min/1.73 m2 in the absence of increased urine albumin excretion or structural abnormaliti es does not represent CKD. eGFR CKD Interpretat ion (mL/min/1.7 3 m2) stage >=90 G1 Normal 60-89 G2 Mild decrease 45-59 G3A Mild to moderate decrease 30-44 G3B Moderate to severe decrease 15-29 G4 Severe decrease <15 G5 Kidney failure Ordering Provider: BUCK HUNT Report Released Date/Time: Feb 06, 2024 10:44 AM Reporting Lab: [facility] [place] [id number] [facility] [address] Performing Lab: SHIRA MOR[facility] [address] [address] [facility] PANEL 5 UREA NITROGEN [MASS/VOLUM E] IN SERUM OR PLASMA 17 mg/dL 02/05 Specimen Type: PLASMA Comment: Estimated Glomerular Filtration Rate (eGFR) calculated using the 2020 Chronic Kidney Disease-Epi demiology (CKD-EPI) Collaborati on creatinine equation; units of measure are mL/min/1.73 m2. Results are only valid for adults (>=18 years) whose serum creatinine is in a steady state. eGFR calculation s are not valid for patients with acute kidney injury and for patients on dialysis. Creatinine- based estimates of kidney function may also be inaccurate in patients with reduced creatinine generation due to decreased muscle mass (e.g., malnutritio n, severe hypoalbumin emia, sarcopenia, chronic neuromuscul ar disease, amputations , severe heart failure or liver disease) and in patients with increased creatinine generation due to increased muscle mass (e.g., muscle builders, anabolic steroids) or increased dietary intake. As drug clearance is proportiona l to total GFR and not GFR indexed to body surface area (BSA), in individuals with a BSA substantial ly different than 1.73 m2, drug dosing should be based on the reported eGFR value de-indexed from BSA by multiplying by the individual' s BSA and dividing by 1.73. CKD is diagnosed based on abnormaliti es of kidney structure or function, present for >3 months, with implication s for health and disease. CKD is classified and staged based on cause, eGFR and albuminuria (quantified as urine albumin to creatinine ratio). An eGFR >60 mL/min/1.73 m2 in the absence of increased urine albumin excretion or structural abnormaliti es does not represent CKD. eGFR CKD Interpretat ion (mL/min/1.7 3 m2) stage >=90 G1 Normal 60-89 G2 Mild decrease 45-59 G3A Mild to moderate decrease 30-44 G3B Moderate to severe decrease 15-29 G4 Severe decrease <15 G5 Kidney failure Ordering Provider: BUCK HUNT Report Released Date/Time: Feb 06, 2024 10:44 AM Reporting Lab: [address] [phone] Performing Lab: [address] [phone] [facility] PANEL 5 GLUCOSE [MASS/VOLUM E] IN SERUM OR PLASMA 121 mg/dL 74 - 100 02/05 H Specimen Type: PLASMA Comment: Estimated Glomerular Filtration Rate (eGFR) calculated using the 2020 Chronic Kidney Disease-Epi demiology (CKD-EPI) Collaborati on creatinine equation; units of measure are mL/min/1.73 m2. Results are only valid for adults (>=18 years) whose serum creatinine is in a steady state. eGFR calculation s are not valid for patients with acute kidney injury and for patients on dialysis. Creatinine- based estimates of kidney function may also be inaccurate in patients with reduced creatinine generation due to decreased muscle mass (e.g., malnutritio n, severe hypoalbumin emia, sarcopenia, chronic neuromuscul ar disease, amputations , severe heart failure or liver disease) and in patients with increased creatinine generation due to increased muscle mass (e.g., muscle builders, anabolic steroids) or increased dietary intake. As drug clearance is proportiona l to total GFR and not GFR indexed to body surface area (BSA), in individuals with a BSA substantial ly different than 1.73 m2, drug dosing should be based on the reported eGFR value de-indexed from BSA by multiplying by the individual' s BSA and dividing by 1.73. CKD is diagnosed based on abnormaliti es of kidney structure or function, present for >3 months, with implication s for health and disease. CKD is classified and staged based on cause, eGFR and albuminuria (quantified as urine albumin to creatinine ratio). An eGFR >60 mL/min/1.73 m2 in the absence of increased urine albumin excretion or structural abnormaliti es does not represent CKD. eGFR CKD Interpretat ion (mL/min/1.7 3 m2) stage >=90 G1 Normal 60-89 G2 Mild decrease 45-59 G3A Mild to moderate decrease 30-44 G3B Moderate to severe decrease 15-29 G4 Severe decrease <15 G5 Kidney failure Ordering Provider: BUCK HUNT Report Released Date/Time: Feb 06, 2024 10:44 AM Reporting Lab: [facility] [address] [address] Performing Lab: [facility] M[facility] [address] [address] [facility] PANEL 5 SODIUM [MOLES/VOLU ME] IN SERUM OR PLASMA 132 mmol/L 136 - 145 02/05 L Specimen Type: PLASMA Comment: Estimated Glomerular Filtration Rate (eGFR) calculated using the 2020 Chronic Kidney Disease-Epi demiology (CKD-EPI) Collaborati on creatinine equation; units of measure are mL/min/1.73 m2. Results are only valid for adults (>=18 years) whose serum creatinine is in a steady state. eGFR calculation s are not valid for patients with acute kidney injury and for patients on dialysis. Creatinine- based estimates of kidney function may also be inaccurate in patients with reduced creatinine generation due to decreased muscle mass (e.g., malnutritio n, severe hypoalbumin emia, sarcopenia, chronic neuromuscul ar disease, amputations , severe heart failure or liver disease) and in patients with increased creatinine generation due to increased muscle mass (e.g., muscle builders, anabolic steroids) or increased dietary intake. As drug clearance is proportiona l to total GFR and not GFR indexed to body surface area (BSA), in individuals with a BSA substantial ly different than 1.73 m2, drug dosing should be based on the reported eGFR value de-indexed from BSA by multiplying by the individual' s BSA and dividing by 1.73. CKD is diagnosed based on abnormaliti es of kidney structure or function, present for >3 months, with implication s for health and disease. CKD is classified and staged based on cause, eGFR and albuminuria (quantified as urine albumin to creatinine ratio). An eGFR >60 mL/min/1.73 m2 in the absence of increased urine albumin excretion or structural abnormaliti es does not represent CKD. eGFR CKD Interpretat ion (mL/min/1.7 3 m2) stage >=90 G1 Normal 60-89 G2 Mild decrease 45-59 G3A Mild to moderate decrease 30-44 G3B Moderate to severe decrease 15-29 G4 Severe decrease <15 G5 Kidney failure Ordering Provider: BUCK HUNT Report Released Date/Time: Feb 06, 2024 10:44 AM Reporting Lab: [facility] [address] [address] Performing Lab: [facility] [address] [address] [facility] 5 POTASSIUM [MOLES/VOLU ME] IN SERUM OR PLASMA 4.2 mmol/L 3.5 - 5.1 02/05 Specimen Type: PLASMA Comment: Estimated Glomerular Filtration Rate (eGFR) calculated using the 2020 Chronic Kidney Disease-Epi demiology (CKD-EPI) Collaborati on creatinine equation; units of measure are mL/min/1.73 m2. Results are only valid for adults (>=18 years) whose serum creatinine is in a steady state. eGFR calculation s are not valid for patients with acute kidney injury and for patients on dialysis. Creatinine- based estimates of kidney function may also be inaccurate in patients with reduced creatinine generation due to decreased muscle mass (e.g., malnutritio n, severe hypoalbumin emia, sarcopenia, chronic neuromuscul ar disease, amputations , severe heart failure or liver disease) and in patients with increased creatinine generation due to increased muscle mass (e.g., muscle builders, anabolic steroids) or increased dietary intake. As drug clearance is proportiona l to total GFR and not GFR indexed to body surface area (BSA), in individuals with a BSA substantial ly different than 1.73 m2, drug dosing should be based on the reported eGFR value de-indexed from BSA by multiplying by the individual' s BSA and dividing by 1.73. CKD is diagnosed based on abnormaliti es of kidney structure or function, present for >3 months, with implication s for health and disease. CKD is classified and staged based on cause, eGFR and albuminuria (quantified as urine albumin to creatinine ratio). An eGFR >60 mL/min/1.73 m2 in the absence of increased urine albumin excretion or structural abnormaliti es does not represent CKD. eGFR CKD Interpretat ion (mL/min/1.7 3 m2) stage >=90 G1 Normal 60-89 G2 Mild decrease 45-59 G3A Mild to moderate decrease 30-44 G3B Moderate to severe decrease 15-29 G4 Severe decrease <15 G5 Kidney failure Ordering Provider: BUCK HUNT Report Released Date/Time: Feb 06, 2024 10:44 AM Reporting Lab: [facility] M[facility] [address] [address] Performing Lab: SH[facility]A MOR[facility] [address] [address] [facility] PANEL 5 CHLORIDE [MOLES/VOLU ME] IN SERUM OR PLASMA 102 mmol/L 98 - 107 02/05 Specimen Type: PLASMA Comment: Estimated Glomerular Filtration Rate (eGFR) calculated using the 2020 Chronic Kidney Disease-Epi demiology (CKD-EPI) Collaborati on creatinine equation; units of measure are mL/min/1.73 m2. Results are only valid for adults (>=18 years) whose serum creatinine is in a steady state. eGFR calculation s are not valid for patients with acute kidney injury and for patients on dialysis. Creatinine- based estimates of kidney function may also be inaccurate in patients with reduced creatinine generation due to decreased muscle mass (e.g., malnutritio n, severe hypoalbumin emia, sarcopenia, chronic neuromuscul ar disease, amputations , severe heart failure or liver disease) and in patients with increased creatinine generation due to increased muscle mass (e.g., muscle builders, anabolic steroids) or increased dietary intake. As drug clearance is proportiona l to total GFR and not GFR indexed to body surface area (BSA), in individuals with a BSA substantial ly different than 1.73 m2, drug dosing should be based on the reported eGFR value de-indexed from BSA by multiplying by the individual' s BSA and dividing by 1.73. CKD is diagnosed based on abnormaliti es of kidney structure or function, present for >3 months, with implication s for health and disease. CKD is classified and staged based on cause, eGFR and albuminuria (quantified as urine albumin to creatinine ratio). An eGFR >60 mL/min/1.73 m2 in the absence of increased urine albumin excretion or structural abnormaliti es does not represent CKD. eGFR CKD Interpretat ion (mL/min/1.7 3 m2) stage >=90 G1 Normal 60-89 G2 Mild decrease 45-59 G3A Mild to moderate decrease 30-44 G3B Moderate to severe decrease 15-29 G4 Severe decrease <15 G5 Kidney failure Ordering Provider: BUCK HUNT Report Released Date/Time: Feb 06, 2024 10:44 AM Reporting Lab: [facility] [address] [address] Performing Lab: [facility] MOR[facility] [address] [address] [facility] PANEL 5 CARBON DIOXIDE, TOTAL [MOLES/VOLU ME] IN SERUM OR PLASMA 22 mmol/L 22 - 29 02/05 Specimen Type: PLASMA Comment: Estimated Glomerular Filtration Rate (eGFR) calculated using the 2020 Chronic Kidney Disease-Epi demiology (CKD-EPI) Collaborati on creatinine equation; units of measure are mL/min/1.73 m2. Results are only valid for adults (>=18 years) whose serum creatinine is in a steady state. eGFR calculation s are not valid for patients with acute kidney injury and for patients on dialysis. Creatinine- based estimates of kidney function may also be inaccurate in patients with reduced creatinine generation due to decreased muscle mass (e.g., malnutritio n, severe hypoalbumin emia, sarcopenia, chronic neuromuscul ar disease, amputations , severe heart failure or liver disease) and in patients with increased creatinine generation due to increased muscle mass (e.g., muscle builders, anabolic steroids) or increased dietary intake. As drug clearance is proportiona l to total GFR and not GFR indexed to body surface area (BSA), in individuals with a BSA substantial ly different than 1.73 m2, drug dosing should be based on the reported eGFR value de-indexed from BSA by multiplying by the individual' s BSA and dividing by 1.73. CKD is diagnosed based on abnormaliti es of kidney structure or function, present for >3 months, with implication s for health and disease. CKD is classified and staged based on cause, eGFR and albuminuria (quantified as urine albumin to creatinine ratio). An eGFR >60 mL/min/1.73 m2 in the absence of increased urine albumin excretion or structural abnormaliti es does not represent CKD. eGFR CKD Interpretat ion (mL/min/1.7 3 m2) stage >=90 G1 Normal 60-89 G2 Mild decrease 45-59 G3A Mild to moderate decrease 30-44 G3B Moderate to severe decrease 15-29 G4 Severe decrease <15 G5 Kidney failure Ordering Provider: BUCK HUNT Report Released Date/Time: Feb 06, 2024 10:44 AM Reporting Lab: [facility] [address] [address] Performing Lab: [facility]A MOR[facility] [address] [address] [facility] PANEL 5 CALCIUM [MASS/VOLUM E] IN SERUM OR PLASMA 8.8 mg/dL 8.4 - 10.2 02/05 Specimen Type: PLASMA Comment: Estimated Glomerular Filtration Rate (eGFR) calculated using the 2020 Chronic Kidney Disease-Epi demiology (CKD-EPI) Collaborati on creatinine equation; units of measure are mL/min/1.73 m2. Results are only valid for adults (>=18 years) whose serum creatinine is in a steady state. eGFR calculation s are not valid for patients with acute kidney injury and for patients on dialysis. Creatinine- based estimates of kidney function may also be inaccurate in patients with reduced creatinine generation due to decreased muscle mass (e.g., malnutritio n, severe hypoalbumin emia, sarcopenia, chronic neuromuscul ar disease, amputations , severe heart failure or liver disease) and in patients with increased creatinine generation due to increased muscle mass (e.g., muscle builders, anabolic steroids) or increased dietary intake. As drug clearance is proportiona l to total GFR and not GFR indexed to body surface area (BSA), in individuals with a BSA substantial ly different than 1.73 m2, drug dosing should be based on the reported eGFR value de-indexed from BSA by multiplying by the individual' s BSA and dividing by 1.73. CKD is diagnosed based on abnormaliti es of kidney structure or function, present for >3 months, with implication s for health and disease. CKD is classified and staged based on cause, eGFR and albuminuria (quantified as urine albumin to creatinine ratio). An eGFR >60 mL/min/1.73 m2 in the absence of increased urine albumin excretion or structural abnormaliti es does not represent CKD. eGFR CKD Interpretat ion (mL/min/1.7 3 m2) stage >=90 G1 Normal 60-89 G2 Mild decrease 45-59 G3A Mild to moderate decrease 30-44 G3B Moderate to severe decrease 15-29 G4 Severe decrease <15 G5 Kidney failure Ordering Provider: BUCK HUNT Report Released Date/Time: Feb 06, 2024 10:44 AM Reporting Lab: [facility]IRA MOR[facility] [address] [address] Performing Lab: SHIRA MORGAN [address] [address] [facility] PANEL 5 PROTEIN [MASS/VOLUM E] IN SERUM OR PLASMA 6.1 g/dL 6.4 - 8.3 02/05 L Specimen Type: PLASMA Comment: Estimated Glomerular Filtration Rate (eGFR) calculated using the 2020 Chronic Kidney Disease-Epi demiology (CKD-EPI) Collaborati on creatinine equation; units of measure are mL/min/1.73 m2. Results are only valid for adults (>=18 years) whose serum creatinine is in a steady state. eGFR calculation s are not valid for patients with acute kidney injury and for patients on dialysis. Creatinine- based estimates of kidney function may also be inaccurate in patients with reduced creatinine generation due to decreased muscle mass (e.g., malnutritio n, severe hypoalbumin emia, sarcopenia, chronic neuromuscul ar disease, amputations , severe heart failure or liver disease) and in patients with increased creatinine generation due to increased muscle mass (e.g., muscle builders, anabolic steroids) or increased dietary intake. As drug clearance is proportiona l to total GFR and not GFR indexed to body surface area (BSA), in individuals with a BSA substantial ly different than 1.73 m2, drug dosing should be based on the reported eGFR value de-indexed from BSA by multiplying by the individual' s BSA and dividing by 1.73. CKD is diagnosed based on abnormaliti es of kidney structure or function, present for >3 months, with implication s for health and disease. CKD is classified and staged based on cause, eGFR and albuminuria (quantified as urine albumin to creatinine ratio). An eGFR >60 mL/min/1.73 m2 in the absence of increased urine albumin excretion or structural abnormaliti es does not represent CKD. eGFR CKD Interpretat ion (mL/min/1.7 3 m2) stage >=90 G1 Normal 60-89 G2 Mild decrease 45-59 G3A Mild to moderate decrease 30-44 G3B Moderate to severe decrease 15-29 G4 Severe decrease <15 G5 Kidney failure Ordering Provider: BUCK HUNT Report Released Date/Time: Feb 06, 2024 10:44 AM Reporting Lab: [facility]IRA MOR[facility] [address] [address] Performing Lab: SHIRA MORGAN [address] [address] [facility] PANEL 5 ALBUMIN [MASS/VOLUM E] IN SERUM OR PLASMA 3.4 g/dL 3.5 - 5.2 02/05 L Specimen Type: PLASMA Comment: Estimated Glomerular Filtration Rate (eGFR) calculated using the 2020 Chronic Kidney Disease-Epi demiology (CKD-EPI) Collaborati on creatinine equation; units of measure are mL/min/1.73 m2. Results are only valid for adults (>=18 years) whose serum creatinine is in a steady state. eGFR calculation s are not valid for patients with acute kidney injury and for patients on dialysis. Creatinine- based estimates of kidney function may also be inaccurate in patients with reduced creatinine generation due to decreased muscle mass (e.g., malnutritio n, severe hypoalbumin emia, sarcopenia, chronic neuromuscul ar disease, amputations , severe heart failure or liver disease) and in patients with increased creatinine generation due to increased muscle mass (e.g., muscle builders, anabolic steroids) or increased dietary intake. As drug clearance is proportiona l to total GFR and not GFR indexed to body surface area (BSA), in individuals with a BSA substantial ly different than 1.73 m2, drug dosing should be based on the reported eGFR value de-indexed from BSA by multiplying by the individual' s BSA and dividing by 1.73. CKD is diagnosed based on abnormaliti es of kidney structure or function, present for >3 months, with implication s for health and disease. CKD is classified and staged based on cause, eGFR and albuminuria (quantified as urine albumin to creatinine ratio). An eGFR >60 mL/min/1.73 m2 in the absence of increased urine albumin excretion or structural abnormaliti es does not represent CKD. eGFR CKD Interpretat ion (mL/min/1.7 3 m2) stage >=90 G1 Normal 60-89 G2 Mild decrease 45-59 G3A Mild to moderate decrease 30-44 G3B Moderate to severe decrease 15-29 G4 Severe decrease <15 G5 Kidney failure Ordering Provider: BUCK HUNT Report Released Date/Time: Feb 06, 2024 10:44 AM Reporting Lab: SHIRA MORGAN [address] [address] Performing Lab: SHIRA MORGAN [address] [address] [facility] PANEL 5 BILIRUBIN.T OTAL [MASS/VOLUM E] IN SERUM OR PLASMA 0.8 mg/dL 0.2 - 1.2 02/05 Specimen Type: PLASMA Comment: Estimated Glomerular Filtration Rate (eGFR) calculated using the 2020 Chronic Kidney Disease-Epi demiology (CKD-EPI) Collaborati on creatinine equation; units of measure are mL/min/1.73 m2. Results are only valid for adults (>=18 years) whose serum creatinine is in a steady state. eGFR calculation s are not valid for patients with acute kidney injury and for patients on dialysis. Creatinine- based estimates of kidney function may also be inaccurate in patients with reduced creatinine generation due to decreased muscle mass (e.g., malnutritio n, severe hypoalbumin emia, sarcopenia, chronic neuromuscul ar disease, amputations , severe heart failure or liver disease) and in patients with increased creatinine generation due to increased muscle mass (e.g., muscle builders, anabolic steroids) or increased dietary intake. As drug clearance is proportiona l to total GFR and not GFR indexed to body surface area (BSA), in individuals with a BSA substantial ly different than 1.73 m2, drug dosing should be based on the reported eGFR value de-indexed from BSA by multiplying by the individual' s BSA and dividing by 1.73. CKD is diagnosed based on abnormaliti es of kidney structure or function, present for >3 months, with implication s for health and disease. CKD is classified and staged based on cause, eGFR and albuminuria (quantified as urine albumin to creatinine ratio). An eGFR >60 mL/min/1.73 m2 in the absence of increased urine albumin excretion or structural abnormaliti es does not represent CKD. eGFR CKD Interpretat ion (mL/min/1.7 3 m2) stage >=90 G1 Normal 60-89 G2 Mild decrease 45-59 G3A Mild to moderate decrease 30-44 G3B Moderate to severe decrease 15-29 G4 Severe decrease <15 G5 Kidney failure Ordering Provider: BUCK HUNT Report Released Date/Time: Feb 06, 2024 10:44 AM Reporting Lab: SHIRA MORGAN [address] [address] Performing Lab: SHIRA MORGAN [address] [address] [facility] PANEL 5 ASPARTATE AMINOTRANSF ERASE [ENZYMATIC ACTIVITY/VO LUME] IN SERUM OR PLASMA 15 U/L 5 - 34 02/05 Specimen Type: PLASMA Comment: Estimated Glomerular Filtration Rate (eGFR) calculated using the 2020 Chronic Kidney Disease-Epi demiology (CKD-EPI) Collaborati on creatinine equation; units of measure are mL/min/1.73 m2. Results are only valid for adults (>=18 years) whose serum creatinine is in a steady state. eGFR calculation s are not valid for patients with acute kidney injury and for patients on dialysis. Creatinine- based estimates of kidney function may also be inaccurate in patients with reduced creatinine generation due to decreased muscle mass (e.g., malnutritio n, severe hypoalbumin emia, sarcopenia, chronic neuromuscul ar disease, amputations , severe heart failure or liver disease) and in patients with increased creatinine generation due to increased muscle mass (e.g., muscle builders, anabolic steroids) or increased dietary intake. As drug clearance is proportiona l to total GFR and not GFR indexed to body surface area (BSA), in individuals with a BSA substantial ly different than 1.73 m2, drug dosing should be based on the reported eGFR value de-indexed from BSA by multiplying by the individual' s BSA and dividing by 1.73. CKD is diagnosed based on abnormaliti es of kidney structure or function, present for >3 months, with implication s for health and disease. CKD is classified and staged based on cause, eGFR and albuminuria (quantified as urine albumin to creatinine ratio). An eGFR >60 mL/min/1.73 m2 in the absence of increased urine albumin excretion or structural abnormaliti es does not represent CKD. eGFR CKD Interpretat ion (mL/min/1.7 3 m2) stage >=90 G1 Normal 60-89 G2 Mild decrease 45-59 G3A Mild to moderate decrease 30-44 G3B Moderate to severe decrease 15-29 G4 Severe decrease <15 G5 Kidney failure Ordering Provider: BUCK HUNT Report Released Date/Time: Feb 06, 2024 10:44 AM Reporting Lab: SHIRA MORGAN [facility] [address] [facility] [facility] [address] Performing Lab: SHIRA MORGAN [facility] [address] [facility] [address] [facility] PANEL 5 ALANINE AMINOTRANSF ERASE [ENZYMATIC ACTIVITY/VO LUME] IN SERUM OR PLASMA 22 U/L 0 - 55 02/05 Specimen Type: PLASMA Comment: Estimated Glomerular Filtration Rate (eGFR) calculated using the 2020 Chronic Kidney Disease-Epi demiology (CKD-EPI) Collaborati on creatinine equation; units of measure are mL/min/1.73 m2. Results are only valid for adults (>=18 years) whose serum creatinine is in a steady state. eGFR calculation s are not valid for patients with acute kidney injury and for patients on dialysis. Creatinine- based estimates of kidney function may also be inaccurate in patients with reduced creatinine generation due to decreased muscle mass (e.g., malnutritio n, severe hypoalbumin emia, sarcopenia, chronic neuromuscul ar disease, amputations , severe heart failure or liver disease) and in patients with increased creatinine generation due to increased muscle mass (e.g., muscle builders, anabolic steroids) or increased dietary intake. As drug clearance is proportiona l to total GFR and not GFR indexed to body surface area (BSA), in individuals with a BSA substantial ly different than 1.73 m2, drug dosing should be based on the reported eGFR value de-indexed from BSA by multiplying by the individual' s BSA and dividing by 1.73. CKD is diagnosed based on abnormaliti es of kidney structure or function, present for >3 months, with implication s for health and disease. CKD is classified and staged based on cause, eGFR and albuminuria (quantified as urine albumin to creatinine ratio). An eGFR >60 mL/min/1.73 m2 in the absence of increased urine albumin excretion or structural abnormaliti es does not represent CKD. eGFR CKD Interpretat ion (mL/min/1.7 3 m2) stage >=90 G1 Normal 60-89 G2 Mild decrease 45-59 G3A Mild to moderate decrease 30-44 G3B Moderate to severe decrease 15-29 G4 Severe decrease <15 G5 Kidney failure Ordering Provider: BUCK HUNT Report Released Date/Time: Feb 06, 2024 10:44 AM Reporting Lab: SHIRA MORGAN [facility] [address] [facility] [address] Performing Lab: SHIRA MORGAN [facility] [address] [facility] [address] [facility] PANEL 5 ANION GAP 3 IN SERUM OR PLASMA 8 meq/L 3 - 19 02/05 Specimen Type: PLASMA Comment: Estimated Glomerular Filtration Rate (eGFR) calculated using the 2020 Chronic Kidney Disease-Epi demiology (CKD-EPI) Collaborati on creatinine equation; units of measure are mL/min/1.73 m2. Results are only valid for adults (>=18 years) whose serum creatinine is in a steady state. eGFR calculation s are not valid for patients with acute kidney injury and for patients on dialysis. Creatinine- based estimates of kidney function may also be inaccurate in patients with reduced creatinine generation due to decreased muscle mass (e.g., malnutritio n, severe hypoalbumin emia, sarcopenia, chronic neuromuscul ar disease, amputations , severe heart failure or liver disease) and in patients with increased creatinine generation due to increased muscle mass (e.g., muscle builders, anabolic steroids) or increased dietary intake. As drug clearance is proportiona l to total GFR and not GFR indexed to body surface area (BSA), in individuals with a BSA substantial ly different than 1.73 m2, drug dosing should be based on the reported eGFR value de-indexed from BSA by multiplying by the individual' s BSA and dividing by 1.73. CKD is diagnosed based on abnormaliti es of kidney structure or function, present for >3 months, with implication s for health and disease. CKD is classified and staged based on cause, eGFR and albuminuria (quantified as urine albumin to creatinine ratio). An eGFR >60 mL/min/1.73 m2 in the absence of increased urine albumin excretion or structural abnormaliti es does not represent CKD. eGFR CKD Interpretat ion (mL/min/1.7 3 m2) stage >=90 G1 Normal 60-89 G2 Mild decrease 45-59 G3A Mild to moderate decrease 30-44 G3B Moderate to severe decrease 15-29 G4 Severe decrease <15 G5 Kidney failure Ordering Provider: BUCK HUNT Report Released Date/Time: Feb 06, 2024 10:44 AM Reporting [facility] [address] [address] Performing Lab: AAMIRRAFAELA MORGAN [address] [address] [facility] PANEL 5 ALKALINE PHOSPHATASE [ENZYMATIC ACTIVITY/VO LUME] IN SERUM OR PLASMA 127 U/L 40 - 150 02/05 Specimen Type: PLASMA Comment: Estimated Glomerular Filtration Rate (eGFR) calculated using the 2020 Chronic Kidney Disease-Epi demiology (CKD-EPI) Collaborati on creatinine equation; units of measure are mL/min/1.73 m2. Results are only valid for adults (>=18 years) whose serum creatinine is in a steady state. eGFR calculation s are not valid for patients with acute kidney injury and for patients on dialysis. Creatinine- based estimates of kidney function may also be inaccurate in patients with reduced creatinine generation due to decreased muscle mass (e.g., malnutritio n, severe hypoalbumin emia, sarcopenia, chronic neuromuscul ar disease, amputations , severe heart failure or liver disease) and in patients with increased creatinine generation due to increased muscle mass (e.g., muscle builders, anabolic steroids) or increased dietary intake. As drug clearance is proportiona l to total GFR and not GFR indexed to body surface area (BSA), in individuals with a BSA substantial ly different than 1.73 m2, drug dosing should be based on the reported eGFR value de-indexed from BSA by multiplying by the individual' s BSA and dividing by 1.73. CKD is diagnosed based on abnormaliti es of kidney structure or function, present for >3 months, with implication s for health and disease. CKD is classified and staged based on cause, eGFR and albuminuria (quantified as urine albumin to creatinine ratio). An eGFR >60 mL/min/1.73 m2 in the absence of increased urine albumin excretion or structural abnormaliti es does not represent CKD. eGFR CKD Interpretat ion (mL/min/1.7 3 m2) stage >=90 G1 Normal 60-89 G2 Mild decrease 45-59 G3A Mild to moderate decrease 30-44 G3B Moderate to severe decrease 15-29 G4 Severe decrease <15 G5 Kidney failure Ordering Provider: BUCK HUNT Report Released Date/Time: Feb 06, 2024 10:44 AM Reporting Lab: ELICIA-Shira [facility] [address] [facility] [facility] [address] Performing Lab: ELICIA-Shira [facility] [address] [place] [id number] [facility] 5 GLOMERULAR FILTRATION RATE/1.73 SQ M.PREDICTED [VOLUME RATE/AREA] IN SERUM, PLASMA OR BLOOD BY CREATININE- BASED FORMULA (CKD-EPI 2020) 87 02/05 Specimen Type: PLASMA Comment: Estimated Glomerular Filtration Rate (eGFR) calculated using the 2020 Chronic Kidney Disease-Epi demiology (CKD-EPI) Collaborati on creatinine equation; units of measure are mL/min/1.73 m2. Results are only valid for adults (>=18 years) whose serum creatinine is in a steady state. eGFR calculation s are not valid for patients with acute kidney injury and for patients on dialysis. Creatinine- based estimates of kidney function may also be inaccurate in patients with reduced creatinine generation due to decreased muscle mass (e.g., malnutritio n, severe hypoalbumin emia, sarcopenia, chronic neuromuscul ar disease, amputations , severe heart failure or liver disease) and in patients with increased creatinine generation due to increased muscle mass (e.g., muscle builders, anabolic steroids) or increased dietary intake. As drug clearance is proportiona l to total GFR and not GFR indexed to body surface area (BSA), in individuals with a BSA substantial ly different than 1.73 m2, drug dosing should be based on the reported eGFR value de-indexed from BSA by multiplying by the individual' s BSA and dividing by 1.73. CKD is diagnosed based on abnormaliti es of kidney structure or function, present for >3 months, with implication s for health and disease. CKD is classified and staged based on cause, eGFR and albuminuria (quantified as urine albumin to creatinine ratio). An eGFR >60 mL/min/1.73 m2 in the absence of increased urine albumin excretion or structural abnormaliti es does not represent CKD. eGFR CKD Interpretat ion (mL/min/1.7 3 m2) stage >=90 G1 Normal 60-89 G2 Mild decrease 45-59 G3A Mild to moderate decrease 30-44 G3B Moderate to severe decrease 15-29 G4 Severe decrease <15 G5 Kidney failure Ordering Provider: BUCK HUNT Report Released Date/Time: Feb 06, 2024 10:44 AM Reporting Lab: [address] [address] Performing Lab: [place] [id number] [place] [address] 25-OH VITAMIN D 25-HYDROXYV ITAMIN D3 [MASS/VOLUM E] IN SERUM OR PLASMA 50.7 ng/mL 20.0 - 50.0 02/05 H Specimen Type: SERUM Comment: The National Institutes of Health (NIH) recommendat ions state: <12 ng/mL - Deficient 20 - 50 ng/mL - Optimal Levels - adequate for most people. >50 ng/mL - Increased risk of hypercalciu keon/other health problems - clinical correlation is required. These reference ranges represent clinical decision values rather than population- based reference values. Ordering Provider: BUCK HUNT Report Released Date/Time: Feb 06, 2024 10:44 AM Reporting Lab: [address] [address] Performing Lab: [address] [address] [facility] B12 VITAMIN COBALAMIN (VITAMIN B12) [MASS/VOLUM E] IN SERUM OR PLASMA >2000p g/mL 213 - 816 02/05 H Specimen Type: PLASMA Comment: Estimated Glomerular Filtration Rate (eGFR) calculated using the 2020 Chronic Kidney Disease-Epi demiology (CKD-EPI) Collaborati on creatinine equation; units of measure are mL/min/1.73 m2. Results are only valid for adults (>=18 years) whose serum creatinine is in a steady state. eGFR calculation s are not valid for patients with acute kidney injury and for patients on dialysis. Creatinine- based estimates of kidney function may also be inaccurate in patients with reduced creatinine generation due to decreased muscle mass (e.g., malnutritio n, severe hypoalbumin emia, sarcopenia, chronic neuromuscul ar disease, amputations , severe heart failure or liver disease) and in patients with increased creatinine generation due to increased muscle mass (e.g., muscle builders, anabolic steroids) or increased dietary intake. As drug clearance is proportiona l to total GFR and not GFR indexed to body surface area (BSA), in individuals with a BSA substantial ly different than 1.73 m2, drug dosing should be based on the reported eGFR value de-indexed from BSA by multiplying by the individual' s BSA and dividing by 1.73. CKD is diagnosed based on abnormaliti es of kidney structure or function, present for >3 months, with implication s for health and disease. CKD is classified and staged based on cause, eGFR and albuminuria (quantified as urine albumin to creatinine ratio). An eGFR >60 mL/min/1.73 m2 in the absence of increased urine albumin excretion or structural abnormaliti es does not represent CKD. eGFR CKD Interpretat ion (mL/min/1.7 3 m2) stage >=90 G1 Normal 60-89 G2 Mild decrease 45-59 G3A Mild to moderate decrease 30-44 G3B Moderate to severe decrease 15-29 G4 Severe decrease <15 G5 Kidney failure Vitamin B12 test may not yield results when protein level of sample is too elevated. Ordering Provider: BUCK HUNT Report Released Date/Time: Feb 06, 2024 10:44 AM Reporting Lab: SHIRA MORGAN [address] [address] Performing Lab: SHIRA MORGAN [address] [address] [facility] Vital Signs Combined list of inpatient and outpatient Vital Signs from Department of Defense and Veterans Affairs, ranging from 12 months to all on record, depending upon the facility. Vital Sign Value Date Comments Source SYSTOLIC BLOOD PRESSURE 126 04/21/2024 11:45:00 [place] [facility] DIASTOLIC BLOOD PRESSURE 64 04/21/2024 11:45:00 [place] [facility] TEMPERATURE 98.4 04/21/2024 11:45:00 [place] N[facility]ON [facility] PULSE 60 04/21/2024 11:45:00 [place] [facility] RESPIRATION 16 04/21/2024 11:45:00 [place] [facility] [facility] SYSTOLIC BLOOD PRESSURE 140 03/04/2024 11:00:00 [place] [facility] DIASTOLIC BLOOD PRESSURE 76 03/04[facility] 251 03/04/2024 11:00:00 [place] [facility] BMI 37 kg/m2 03/04/2024 11:00:00 [place] [facility] PAIN 0 03/04/2024 11:00:00 [place] [facility] TEMPERATURE 97.4 03/04/2024 11:00:00 [place] [facility] [facility] PULSE 66 03/04/2024 11:00:00 [place] [facility] RESPIRATION 14 03/04/2024 11:00:00 [place] [facility]ON [facility] SYSTOLIC BLOOD PRESSURE 148 02/06/2024 09:58:24 [facility] PRESSURE 79 02/06/2024 09[facility]58[facility] OXIMETRY 96 02/06/2024 09:58:24 [facility] WEIGHT 251 02/06/2024 09:58:24 [place] [facility] BMI 37 kg/m2 02/06/2024 09:58:24 [place] [facility] PAIN 0 02/06/2024 09:58:24 [place] [facility] HEIGHT 69 02/06/2024 09:58:24 [place] [facility] TEMPERATURE 97.2 02/06/2024 09:58:[address] [facility] PULSE 66 02/06/2024 09:58:[address] [facility] RESPIRATION 12 02/06/2024 09:58:[address] [facility] Encounters Combined list of: 1) Encounters from Department of [facility] facilities going backup to the last 18 months, not all [place] inpatient encounters are included; 2) Encounters from the Department of [facility] facilities going backup to 280 months. Location Location Details Encounter Type Encounter Number Reason For Visit Attending Provider ADM Date DC Date Status Disposition Source [facility] Outpatient Encounter [id number] 01/30 [place] [facility] Outpatient Encounter [id number] 12/15 [place] [facility] Outpatient Encounter [id number] 01/04 [place] [facility] Outpatient Encounter [id number] 01/10 [place] [facility] Outpatient Encounter [id number] 01/11 [place] [facility] Outpatient Encounter [id number] 01/12 [place] [facility] Outpatient Encounter [id number] 01/15 [place] [facility] Outpatient Encounter [id number] 01/20 [place] [facility] OFFICE O/P [place] 60 MIN [id number] Diagnos is: ICD-10- CM G35 Multipl e scleros is COMERBUCK 02/05 [place] [facility] [place] ASS[facility]REAS SESSMENT [id number] Diagnos is: ICD-10- CM Z65.9 Problem related to unspeci fied psychos ocial circums ovidio ESCALANTECATALINA Elisa 02/05 [place] [facility] Outpatient Encounter [id number] 02/05 [place] [facility] Outpatient Encounter [id number] Diagnos is: ICD-10- CM G35 Multipl e scleros is HARSH BURTON 02/05 [place] [facility] HC PRO PHONE CALL 11-20 MIN [id number] Diagnos is: ICD-10- CM Z71.2 Person consult ing for explana tion of exam or test finding s VALARIE FELTON 02/09 [place] [facility] Outpatient Encounter [id number] 02/22 [place] Outpatient Encounter [id number] 03/04 [place] [facility] Outpatient Encounter [id number] Diagnos is: ICD-10- CM S82.401 A Unsp fractur e of shaft of right fibula, init for clos fx CHASE HENDERSON 03/04 [place] [facility] HHS/HOSPIC E OF RN EA 15 MIN [id number] Diagnos is: ICD-10- CM G35 Multipl e scleros is Stephen ALCOCER 03/04 [place] ASSMT/REAS SESSMENT [id number] Diagnos is: ICD-10- CM Z65.9 Problem related to unspeci fied psychos ocial circums PADMINI Lundy NNIE D 03/08 [place] Outpatient Encounter [id number] FRANCK WATT TTA R 03/10 [place] [facility] [place] [id number] Diagnos is: ICD-10- CM E66.09 Other obesity due to excess calorie s KAREN SCHULZ 03/10 [place] HC PRO PHONE CALL 5-10 MIN [id number] Diagnos is: ICD-10- CM Z75.5 Holiday relief care FRANCK WATT TTA R 03/11 [place] [facility] Outpatient Encounter [id number] Diagnos is: ICD-10- CM S82.401 A Unsp fractur e of shaft of right fibula, init for clos fx CHASE HENDERSON 03/11 [place] [facility] HHCP-SERV OF PT,EA 15 MIN [id number] Diagnos is: ICD-10- CM G35 Multipl e scleros is Dianne HUFFMAN A 03/19 [place] [facility] QNHP OL DIG ASSMT&MGMT 21+ [id number] Diagnos is: ICD-10- CM Z79.899 Other salvage determiner (curren t) drug therapy SATINDER SHOOK 03/19 [place] [facility] Outpatient Encounter [id number] 03/23 [place] [facility] PH1 ASSMT&MGMT NQHP 5-10 [id number] Diagnos is: ICD-10- CM G35 Multipl e scleros is Stephen ALCOCER DITH F 03/29 [place] [facility] Outpatient Encounter [id number] 03/29 [place] Outpatient Encounter [id number] 04/16 [place] [facility] HHS/HOSPIC E OF RN EA 15 MIN [id number] Diagnos is: ICD-10- CM G35 Multipl e scleros is LEODANE DITH F 04/21 [place] [facility] Outpatient Encounter [id number] 05/03 [place] [facility] Outpatient Encounter [id number] 05/04 [place] [facility] PH1 ASSMT&MGMT NQHP 5-10 [id number] Diagnos is: ICD-10- CM M25.561 Pain in right knee LEODANE DITH F 05/04 [place] PH1 ASSMT&MGMT NQHP 5-10 [id number] Diagnos is: ICD-10- CM G35 Multipl e scleros is LEODANE DITH F 05/12 [place] [facility] NQHP OL DIG ASSMT&MGMT 11-20 [id number] Diagnos is: ICD-10- CM Z79.899 Other salvage determiner (curren t) drug therapy SATINDER SHOOK 05/18 [place] [facility] Outpatient Encounter [id number] 05/25 [place] [facility] Outpatient Encounter [id number] Diagnos is: ICD-10- CM K21.9 Gastro- esophag eal reflux disease without esophag itTATA Bennett SSA 05/25 [place] [facility] [place] [id number] Diagnos is: ICD-10- CM I10 Essenti al (primar y) hyperte nsion ALCOCER,E DITH F 05/25 [place] [facility] Outpatient Encounter [id number] 05/27 [place] [facility] Outpatient Encounter [id number] 06/04 [place] [facility] HLTH BHV IVNTJ INDIV [id number] Diagnos is: ICD-10- CM Z65.9 Problem related to unspeci fied psychos ocial circums PADMINI Lundy NNIE D 06/07 [place] PH1 ASSMT&MGMT NQHP 02-10 [id number] Diagnos is: ICD-10- CM G35 Multipl e scleros is Dianne HUFFMAN 06/10 [place] [facility] Outpatient Encounter [id number] 07/07 [place] [facility] Social History Combined list of available smoking, tobacco, and other social history from Department of Defense and Veterans Affairs facilities. Social History Type Response Date Comment Sourc e Tobacco smoking status NHIS VA-TOBACCO USER SOME DAYS 02/06/2024 [facility] History of tobacco use VA-TOBACCO DOESNT USE WI 30 MIN WAKEUP 02/06/2024 [facility] Plan of Care List of future care activities from Department of [facility] facilities. Additional future care activities may be listed in the Assessment and Plan section. Date/Time Care Activity Care Activity Detail Facili ty 08/19/2024 AMBULATORY - SURGERY AMBULATORY - SURGERY [facility] Advance Directives List of completed, amended, or rescinded Advance Directives on record at Department of [facility] facilities. An actual copy of the Directive is not included. Date Advance Directive Provider Source 03/08/2024 ADVANCE DIRECTIVE DISCUSSION [facility]UB[facility]
--- NOTE | 2024-07-08 09:15 | CT_ITS ---
FINAL REPORT TECHNIQUE: Thin section axial CT images with coronal and sagittal reformats were obtained through the neck before and after the administration of IV contrast. This study was performed with techniques to keep radiation doses as low as reasonably achievable (ALARA). Individualized dose reduction techniques using automated exposure control or adjustment of mA and/or kV according to the patient's size were employed. CLINICAL HISTORY: parotid mass COMPARISON: None FINDINGS: CT NECK SOFT TISSUE WITH AND WITHOUT CONTRAST: There is an ovoid mass in the region of the right parotid gland, measuring 3.0 x 2.2 cm in size. The mean attenuation value of this mass is 28 Hounsfield units. This mass appears to arise from the posterior aspect of the right masseter muscle, best seen on images #25 through 30 of series 5. No associated adenopathy is identified. The nasopharynx, oropharynx, larynx appear unremarkable. Note is made of a right maxillary polyp versus retention cyst. There is multilevel degenerative disc disease noted in the cervical spine, most severe involving the C4-5, C5-6, and C6-7 levels. There are extensive dense bilateral carotid artery calcifications, greater on the left than on the right, that likely produced significant carotid stenosis. IMPRESSION: Ovoid mass appears to arise from the posterior aspect of the right masseter muscle. No associated adenopathy is identified. Ultrasound-guided biopsy may be helpful for further evaluation. Extensive bilateral carotid artery calcifications are noted, greater on the left than on the right, that likely produce significant carotid artery stenosis. 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 Reviewed, Interpreted and Dictated by Humberto Zapata MD Transcribed by Amanda Squires Authenticated and . [facility]
[2024-07-08] MEDS: SODIUM CHLORIDE 0.9% 10ML SYR (RAD ONLY) 10 ML IV (09:16)
[2024-07-08] MEDS: IOPAMIDOL-370 (76%);100ML BOTTLE 75 ML IV (09:16)
== END 2024-07-08 23:59 | disposition home or self-care (01) ==
LOC: RAD 08:50
PROVIDERS: PCP Family Medicine; Visit Provider Family Medicine
DX: K11.8 Other diseases of salivary glands (principal)
CPT/HCPCS: 70492; Q9967

== ENCOUNTER 2024-07-27 07:34 | Outpatient (CLI) | payer MEDICARE, SELFPAY ==
--- OUTSIDE RECORDS SUMMARY | 2024-07-27 07:38 | XMS_ITS | Data Portability ---
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 4 13:16:26 Gastroesophage al reflux disease 190989464 Active 2023 NILO BIREMILY_APR N [address], [place], [address], [employer] 4 13:16:32 Hyperglycemia 29112925 Active 2023 NILO SEPULVEDA_APR N [address], [place], [address], [employer] 4 13:16:43 Carcinoma of prostate 285751868 Active 2023 NILO SEPULVEDA_APR N [address], [place], [address], [employer] 4 13:27:34 Constipation 34292038 Active 2023 NILO SEPULVEDA_APR N [address], [place], [address], [employer] 4 13:35:34 Problem Notes None recorded. Medical [...] Address Organization Details Last Updated DateTime 05/27/2023 242187.09 g 36.9 kg/m2 175.26 cm NILO PLASENCIA [address] [place] [address] [address], [place], [address], [place] - [employer] 05/27/2023 13:15:34 Social History None recorded. Functional Status None recorded. Mental Status None recorded. Family History Nothing Reported. Medical History No medical history recorded. Past Encounters Encounter ID Performer Location Encounter Start Date Encounter Closed Date Diagnosis/Indication Diagnosis SNOMED-CT Code Diagnosis ICD10 Code Diagnosis Note [id number] NILO PLASENCIA [facility] [address] [facility] [address] [place] [address] 05/27/2023 14:55:50 05/27/2023 14:58:47 Constipation 13304883 K59.00 Cont daily Miralax and prn stool softener. Carcinoma of prostate 25 4474030 C61 Cont biannual injections of prostate cancer Degenerati ve disorder of macula 822854285 H35.30 Cont injections per opthalmolo gy. Essential hypertension 09083660 I10 Cont current bisoprolol . Gastroesop hageal reflux disease 138173090 K21.9 Avoid trigger foods. Eat small meals and avoid carbonated beverages. Avoid laying down for 2 hours after meals. Hyperglycemia 03071968 R 73.9 Cont metformin. NCS diet. Hyperlipidemia 17617143 E78.5 Cont atorvastat in. Multiple sclerosis 08625 007 G35 Cont biannual infusions of Ocrevus. Follow with neurology. Restless legs 91026841 G 25.81 Cont gabapnetin . Body mass index 30+ - obesity 882948745 Z68.36 Encouraged weight loss with a combinatio n of lifestyle and dietary modificati ons. Adult heal th examination 545185554 Z00.00 Chronic care management / Remote patient [...] Name 05/27/2023 1 MEDICARE [place]: NGS - [facility] David Chung [id number] Med Chung Notes Date Note Type [...] during today's visit. NILO SEPULVEDA_APRN [address] [place] [address], [phone], [employer] 05/27/2023 14:58:27
--- OUTSIDE RECORDS SUMMARY | 2024-07-27 07:38 | XMS_ITS | Data Portability ---
Author Organization [facility] [place] & KEELY Dawson ADMIN Address [address] [place] [phone] Assessment No assessment recorded. Plan of Treatment Reminders Order Date Submit Date Provider Last Modified By Organization Details Last Modified Time Details Appointments None recorded. Lab urinalysis , dipstick 2022 023 [facility] [place] [place] Not available 12:25:51 culture, urine 2022 023 [facility] (Lab Registration) , [address] [place] [address], [address], 3 12:25:51 Referral None recorded. Procedures None recorded. Surgeries None recorded. Imaging None recorded. Medication Orders ciprofloxa ann-marie 500 mg tablet 2022 023 [facility], [address] [place] [address], [address], 3 14:13:24 Ciprodex 0.3 %-0.1 % ear drops,susp ension 2021 022 [facility], [address] [place] [address], [address], 2 09:50:14 doxycyclin e hyclate 100 mg tablet 2021 022 [facility], [address] [place] [address], [address], 3 14:09:10 Patient TargetsNo targets recorded. Patient InstructionsNo instructions recorded. Reason for Referral None Reported. Results Created Date Observation Date Name Description Value Unit Range Abnormal Flag Note LastModifiedBy Organization Detail LastModifiedTime 06/11/19 23 06/10/2022 CULTU RE URINE results LT 06-11 633 >100, 000 COL/M L Gram Posit rani Cocci Not Available [facility] (Lab Registration) [address], [place], [address], 06/11/2022 06:35:52 06/11/19 23 06/10/2022 CULTU RE URINE note Unles s other junior noted testi ng perfo rmed at: [facility] [address] [place] [address] [phone] Benedicto mccann MD CLIA: [id number] Not Available [facility] (Lab Registration) [address], [place], [address], 06/11/2022 06:35:52 06/11/19 23 06/10/2022 CULTU RE URINE culccur ===== ===== ===== ===== ===== ===== ===== ===== ===== ===== ===== ===== ===== ===== ===== ===== ===== ===== ===== ===== ===== ===== ===== ===== Speci men NO.: [id number] Exam Statu s: Final Proce dure: [...] L Gram Posit rani Cocci Not Available [facility] (Lab Registration) [address] , [place], [address], 06/12/2022 07:59:18 06/11/19 23 06/10/2022 CULTU RE URINE note Unles s other junior noted testi ng perfo rmed at: [facility] [address] [place] [address] [phone] Benedicto mccann MD CLIA: [id number] Not Available [facility] (Lab Registration) [address] , [place], [address], 06/12/2022 07:59:18 06/11/19 23 06/10/2022 urina lysis , dipst ick Leukocytes (reference range) small Not Available [address], [address], 06/10/2022 09:58:29 06/11/19 23 06/10/2022 urina lysis , dipst ick Nitrite (reference range:) positi ve Not Available [address], [address], 06/10/2022 09:58:29 06/11/19 23 06/10/2022 urina lysis , dipst ick Urobilinogen (reference range) 2 Not Available [address], [place], [address], 06/10/2022 09:58:29 06/11/19 23 06/10/2022 urina lysis , dipst ick Protein (reference range) negati ve Not Available [address], [address], 06/10/2022 09:58:29 06/11/19 23 06/10/2022 urina lysis , dipst ick pH (reference range 5-8.5) 7.0 Not Available [address], [address], 06/10/2022 09:58:29 06/11/19 23 06/10/2022 urina lysis , dipst ick Blood (reference range:) negati ve Not Available [address], [place], [address], 06/10/2022 09:58:29 06/11/19 23 06/10/2022 urina lysis , dipst ick Specific [place] (reference range) 1.015 Not Available [address], [address], 06/10/2022 09:58:29 06/11/19 23 06/10/2022 urina lysis , dipst ick Ketone (reference range) negati ve Not Available [address], [address], 06/10/2022 09:58:29 06/11/19 23 06/10/2022 urina lysis , dipst ick Bilirubin (reference range) negati ve Not Available [address], [address], 06/10/2022 09:58:29 0306/10/2022 urina lysis , dipst ick Glucose (reference range) negati ve Not Available [address], [address], 06/10/2022 09:58:29 06/11/1906/10/2022 urina lysis , dipst ick Color (reference range: yellow-brown ) Yellow Not Available [address], [address], 06/10/2022 09:58:29 Result Notes None recorded. Medical [...] Updated DateTime 2 175.26 cm 36.4 kg/m2 182191. 16 g 97.5 [degF] 97 % 97 % 64 /min 18 /min 152 mm[Hg] 69 mm[Hg] Ana [facility] [place] [facility] [place] 2 09:26:07 Social History Question Answer Notes LastModified by Organizat ion Details LastModified Time Tobacco Smoking Status Never Smoker Not Available [facility] 06/11/2022 16:08:24 What Is Your Level Of [...] preservative free, pediatric 1 completed Not Available [facility] 06/11/2022 16:08:25 Influenza, split virus, quadrivalent, preservative 0 completed Not Available [facility] 06/11/2022 16:08:25 Influenza, adjuvanted, trivalent, PF 9 completed Not Available [facility] 06/11/2022 16:08:25 Influenza, high-dose, quadrivalent, PF 2 completed Ana Villagran [facility] & [place] 01/25/2022 10:04:21 Past Encounters Encounter ID Performer Location Encounter Start Date Encounter Closed Date Diagnosis/Indication Diagnosis SNOMED-CT Code Diagnosis ICD10 Code Diagnosis Note [id number] Marcelino Mobley MD [address] [address] 01/25/2022 09:11:20 01/28/2022 11:29:19 Administration of influenza vaccine 97249996 Z23 Acute sero us otitis media of right ear 6026372698 926929 H65.01 [id number] PASQUALE ROBERT NP [address] [address] 06/10/2022 09:41:28 06/10/2022 10:01:08 Acute cystitis 31433679 N30.00 Health Concerns Section Related Observation LastModified by Organization Detai ls LastModified Time None Recorded Concern Status LastModified by Organization Details LastModified Time None Recorded Advance Directives Directive None Recorded Payers Encounter Date Sequence Insurance Name Policy Number Policy Munoz Covered Member ID Munoz Member ID Guarantor Name 01/25/2022 1 [place] David Hughes [place] [id number] David Hughes [place] 01/25/2022 2 [employer] - OPTIONS Med Hughes [place] [id number] David Hughes [place] 06/10/2022 1 [place] David Ellen [place] [id number] David A Juliet 06/10/2022 2 [employer] - OPTIONS Med Hughes [place] [id number] David Ellen [place] Notes Date Note Type Note Provider Name and Address Organization Details Recorded Time 01/25/2022 text/html Patient presents complaining of right ear pain. Marcelino Mobley MD [address] [place] [address], [address] [place] 01/25/2022 12:39:29
--- OUTSIDE RECORDS SUMMARY | 2024-07-27 07:38 | XMS_ITS | Encounter Summary ---
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 Name Role Phone YULISSA HENDERSON Primary [...] PLAN F Mar 24, 2014 PLAN F [id number] LUIS MANUEL PERDOMO PATIENT [facility] [place] BLUECARD PREFERRED PROVIDER ORGANIZAT ION (PPO) [facility] SLE Sep 21, 2012 [id number] LUIS MANUEL PERDOMO PATIENT [employer] ([id number]) PRESCRIPT ION [id number] Sep 21, 2012 [id number] [phone] LUIS MANUEL PERDOMO PATIENT MEDICARE (WNR) MEDICARE ([place]) PART B Sep 21, 2012 PART B [id number] NOEMI PERDOMO PATIENT MEDICARE (WNR) MEDICARE ([place]) PART A Jan 22, 2011 PART A [id number] [phone] NOEMI PERDOMO PATIENT MEDICARE PART D (WNR) MEDICARE (M) PART D Mar 24, 2014 PART D [id number] LUIS MANUEL PERDOMO PATIENT Selected Encounter This section includes the information on record at [place] for the Encounter. Date/Time Encounter Type Encounter Description Reason Pro vider Source Jul 19, 2024 12:28 PM Outpatient Encounter [facility] ASSESSMENT IHE Encounter Template Text not used by [place] Plan of Treatment: Future Appointments (+ 6 months) and Future Tests (+/- 45 days) The Plan of Treatment section includes future care activities for the patient [facility] [place] [facility] This section includes future appointments and [...] 19, 2024 01:20 PM AMBUL[facility] Active, Pending, and Scheduled Orders This section includes a listing of several types of active, pending, and scheduled orders, including clinic medications orders, diagnostic test orders, procedure orders and consult orders; where the start date of the order is 45 days before the date of the Encounter or 45 days after the date of theEncounter. The data comes from all [facility]. Test Date/Time Test Type Test Details Facility Name Jun 08, 2024 11:04 AM Consult Order ORTHO KNEE OUTPATIENT Cons Manager Talent Management's Choice [facility] Social History: Smoking Status (Most current) and Tobacco Use (All prior to encounter date) This section includes the most current, and the historical, smoking and tobacco- related health factors from the [place] facility where the Encounter took place. Current Smoking Status This section includes the most current smoking, or tobacco-related health factor, from the [place] facility where the Encounter took place. Date/Time Current Smoking Status Comment Facil ity Feb 06, 2024 10:00 AM VA-TOBACCO USER SOME DAYS [facility] Tobacco Use History This section includes a history of the smoking, or tobacco-related health factors, that were collected on or before the date of the Encounter. The data comes from the [place] facility where the Encounter took place. 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 Date/Time Encounter Note(s) Provider Source Jul 19, 2024 12:28 PM [facility] NOTE: LOCAL TITLE: HHN PT/OT, SPEECH FOLLOW UP NOTE STANDARD TITLE: [facility] NOTE DATE OF NOTE: JUL 19, 2024@12:28 ENTRY DATE: JUL 19, 2024@12:28:55 AUTHOR: ANNIE LAGUERRE EXP COSIGNER: URGENCY: STATUS: COMPLETED Home Health Agency: [facility] Caller: Jenny LAGUNAS Phone Number: [phone] SETTER UP called in to report that [place] had a fall on Friday 4.25.25 upon entering into the home without assistance. called the squad and they examined [place] and reported no injuries. /rosette/ Annie Laguerre RN, MSN, WOCN ASSEMBLY MACHINE TENDER Sports Agent Signed: 07/19/2024 12:31 Receipt Acknowledged By: 07/19/2024 15:02 /rosette/ YULISSA HENDERSON APRN [facility]VANCED PRACTICE REGISTERED NURSE, HBANNIE SALINAS [facility]
--- OUTSIDE RECORDS SUMMARY | 2024-07-27 07:38 | XMS_ITS | Data Portability ---
Author Organization CLAUDETTE KATHIE [facility] [place] [facility] Address [address] [place] [address] Care Team Providers Care Psychologist Personnel Name Role Phone NICK NOLASCO Primary Care Provider Assessment Encounter Date Assessment Date Assessment LastModified by Organization Details LastModified Time 05/29/2023 05/29/2023 Alfuzosin for lower urinary symptoms. Return to the office with PSA and Lupron. [email or web address] Not available 05/29/2023 19:15:02 08/26/2023 08/26/2023 1. [...] He is scheduled for Ocrevus infusion at [facility] outpatient on September 07 per 's report 3. follow up with me in 6 months [address] telehealth [address] Jennifer Saab in [place] Not available 08/26/2023 09:21:23 10/16/2023 10/16/2023 Urine for culture and sensitivity. Antifungal/jeet roid cream for jock itch. [email or web address] Not available 11/02/2023 15:23:50 12/04/2023 12/04/2023 Urine for culture and sensitivity Antifungal/jeet roid cream for jock itch, improved not resolved Androgen deprivation therapy for prostate carcinoma Methenamine for UTI suppression. [email or web address] Not available 12/04/2023 19:36:35 02/24/2024 02/24/2024 1. Multiple sclerosis 2. Disabled adult 3. Disabled walking, uses walker 4. Spastic paraparesis gait 5. Needs assist for some personal care 6. [facility] current drug therapy on Ocrevus 7. High risk medication, monitoring needed for safety Plan 1. Submit blood tests CBC, CMP, IgG today or tomorrow in our lab 2. Ocrevus is scheduled Mar 08 or 3. I will call with blood test results 4. I advised I retire Apr 23 5. Follow up in [address] Tiarra Pratt [email or web address] Not available 02/24/2024 13:30:01 Plan of Treatment Reminders Order Date Submit Date Provider Last Modified By Organization Details Last Modified Time Details Appointments RECHECK 2024 02:15P Mellissa DIAMOND MD Not available Not available Not available NEUROLOGY RECHECK 2024 10:15A Mellissa PRATT DO Not available Not available Not available Lab CBC w/ auto diff 2023 024 [facility], [address] [place] [address], [id number], 02/24/2024 12:27:49 CMP, serum or plasma 2023 024 [facility], [address] [place] [address], [id number], 02/24/2024 11:55:24 igg, quantitat rani, serum 2023 024 [facility], [address] [place] [address], [id number], 02/24/2024 11:55:21 urinalysi s panel, auto 2023 024 [email or web address] 4 [facility] [place], [address] [place] [address] Dr Wilkins, [place], [address], 12/05/2023 13:50:22 culture, urine 2023 024 [email or web address] 4 [facility], [address] [place] [address], [address], 12/05/2023 13:50:22 urinalysi s panel, auto 2023 024 [email or web address] 4 [facility], [address] [place] [address] Dr Wilkins, [place], [address], 10/16/2023 15:13:59 culture, urine 2023 024 4 [facility], [address] [place] [address], [address], 10/26/2023 12:36:11 PSA, total, serum or plasma 2023 024 [email or web address] [facility], [address] [place] [address], [address], 06/27/2023 14:53:37 Referral None recorded. Procedures None recorded. Surgeries None recorded. Imaging None recorded. Medication Orders methenami ne hippurate 1 gram tablet [address] [facility], [address] [place] [address], [id number], 02/24/2024 08:16:51 clotrimaz ole-betam ethasone 1 %-0.05 % topical cream 2023 024 [facility], [address] [place] [address], [id number], 02/24/2024 08:18:51 Diflucan 150 mg tablet 2023 024 [facility], [address] [place] [address], [id number], 02/24/2024 08:18:55 silodosin 8 mg capsule 2023 024 [email or web address] 4 [facility] [address] [place], [address], 12/05/2023 13:50:22 clotrimaz ole-betam ethasone 1 %-0.05 % topical cream 2023 024 [email or web address] [facility] [address] [place], [address], 02/24/2024 08:14:59 silodosin 8 mg capsule 2023 024 CH[facility] [address] [place], [address], 10/16/2023 15:21:57 Patient TargetsNo targets recorded. Patient Instructions Encounter Date Encounter Id Patient Instructions Last Modified By Organization Details Last Modified Time 08/26/2023 [id number] CATEGORY DESCRIPTION MINUTES Prepare to see the patient (e.g. review of tests) review past med records, review 2022 lab results 5 Obtain/review separately obtained history Perform medically appropriate exam/evaluation Order medications, tests, or procedures will mail lab requisition to patient to complete in her local hospital outpatient services 5 Store Sales Manager/educate the patient/family/car egiver Telehealth connection for 11 minutes 10 Refer/communicate w/other healthcare professionals Document clinical information into health record 5 Non-billable independent interp of results Non-billable care coordination TOTAL TIME 25 [id number] (15-29) 28276 (30-44) 66924 (45-59) 50110 (60-74) 95087 (10-19) 26333 (20-29) 26382 (30-39) 49237 (40-54) [email or web address] Not available 08/26/2023 09:03:40 12/04/2023 [id number] learning about healthy weight [email or web address] Not available 12/04/2023 13:49:18 Reason for Referral None Reported. Results Created Date Observation Date Name Description Value Unit Range Abnormal Flag Note LastModifiedBy Organization Detail LastModifiedTime 05/01/19 24 05/05/2023 URINE CULTU RE urine culture COLONY COUNT: > 100,00 0 CFU/ML Minute alpha colony . Not Available [facility] [address] [place] [address], [address], 05/05/2023 13:11:39 05/01/19 24 05/01/2023 urina lysis panel , auto Unknown Analyte Clean Catch Not Available [facility] [address]kins, [place], [address], 05/01/2023 15:43:07 05/01/19 24 05/01/2023 urina lysis panel , auto Unknown Analyte Yellow Not Available [facility] With [address] Wilkins, [place], [address], 05/01/2023 15:43:07 05/01/19 24 05/01/2023 urina lysis panel , auto Unknown Analyte Clear Not Available [facility] With [address] [place], [address], 05/01/2023 15:43:07 05/01/19 24 05/01/2023 urina lysis panel , auto Unknown Analyte 1.025 Not Available [facility] With [address] Wilkins, [place], [address], 05/01/2023 15:43:07 05/01/19 24 05/01/2023 urina lysis panel , auto Unknown Analyte 1.003- 1.035 Not Available [facility] With [address] Wilkins, [place], [address], 05/01/2023 15:43:07 05/01/19 24 05/01/2023 urina lysis panel , auto Unknown Analyte 5.0 Not Available [facility] With [address] Wilkins, [place], [address], 05/01/2023 15:43:07 05/01/19 24 05/01/2023 urina lysis panel , auto Unknown Analyte 5.0-8. 0 Not Available [facility] With [address] [place], [address], 05/01/2023 15:43:07 05/01/19 24 05/01/2023 urina lysis panel , auto Unknown Analyte 500 Ade/ul (++) Not Available [facility] With [address] [place], [address], 05/01/2023 15:43:07 05/01/19 24 05/01/2023 urina lysis panel , auto Unknown Analyte Negati ve Not Available [facility] With [address] [place], [address], 05/01/2023 15:43:07 05/01/19 24 05/01/2023 urina lysis panel , auto Unknown Analyte Negati ve Not Available [facility] With [address] [place], [address], 05/01/2023 15:43:07 05/01/19 24 05/01/2023 urina lysis panel , auto Unknown Analyte Negati ve Not Available [facility] With [address] [place], [address], 05/01/2023 15:43:07 05/01/19 24 05/01/2023 urina lysis panel , auto Unknown Analyte 30 mg/dl (+) Not Available [facility] With [address] [place], [address], 05/01/2023 15:43:07 05/01/19 24 05/01/2023 urina lysis panel , auto Unknown Analyte Negati ve Not Available [facility] With [address] [place], [address], 05/01/2023 15:43:07 05/01/19 24 05/01/2023 urina lysis panel , auto Unknown Analyte >1000 mg/dl Not Available [facility] With [address] [place], [address], 05/01/2023 15:43:07 05/01/19 24 05/01/2023 urina lysis panel , auto Unknown Analyte Normal Not Available [facility] With [address] [place], [address], 05/01/2023 15:43:07 05/01/19 24 05/01/2023 urina lysis panel , auto Unknown Analyte Negati ve Not Available [facility] With [address] [place], [address], 05/01/2023 15:43:07 05/01/19 24 05/01/2023 urina lysis panel , auto Unknown Analyte Negati ve Not Available [facility] With [address] [place], [address], 05/01/2023 15:43:07 05/01/19 24 05/01/2023 urina lysis panel , auto Unknown Analyte 4 mg/dl Not Available [facility] With [address] [place], [address], 05/01/2023 15:43:07 05/01/19 24 05/01/2023 urina lysis panel , auto Unknown Analyte Normal 1 mg/dl Not Available [facility] With [address] [place], [address], 05/01/2023 15:43:07 05/01/19 24 05/01/2023 urina lysis panel , auto Unknown Analyte Negati ve Not Available [facility] With [address]kins, [place], [address], 05/01/2023 15:43:07 05/01/19 24 05/01/2023 urina lysis panel , auto Unknown Analyte Negati ve Not Available [facility] With [address]kins, [place], [address], 05/01/2023 15:43:07 05/01/19 24 05/01/2023 urina lysis panel , auto Unknown Analyte 50 [place]/ul Not Available [facility] With [address] Wilkins, [place], [address], 05/01/2023 15:43:07 05/01/19 24 05/01/2023 urina lysis panel , auto Unknown Analyte Negati ve Not Available [facility] With [address] Wilkins, [place], [address], 05/01/2023 15:43:07 10/16/19 24 10/16/2023 URINE CULTU RE enterococcus faecalis Organi sm: Entero coccus faecal is Not Available [facility] [address] [place], [address], 10/20/2023 10:51:39 10/16/19 24 10/20/2023 URINE CULTU RE urine culture abnormal ISOLA TE #1 COLON Y COUNT : > 100,0 00 CFU/M L Proba ble Strep tococ cus sp.; ID and sensi tivit y in progr ess. Enter ococc us faeca lis Not Available [facility] [address] [place], [address], 10/20/2023 10:51:39 10/16/19 24 10/20/2023 URINE CULTU RE ampicillin <=2 ug/mL susceptib le Not Available [facility] [address] [place] [address], [address], 10/20/2023 10:51:39 10/16/19 24 10/20/2023 URINE CULTU RE ciprofloxaci n >2 ug/mL resistant Not Available [facility] [address] [place] [address], [address], 10/20/2023 10:51:39 10/16/19 24 10/20/2023 URINE CULTU RE levofloxacin >4 ug/mL resistant Not Available [facility] [address] [place] [address], [address], 10/20/2023 10:51:39 10/16/19 24 10/20/2023 URINE CULTU RE nitrofuranto in <=32 ug/mL susceptib le Not Available [facility] [address] [place] [address], [address], 10/20/2023 10:51:39 10/16/19 24 10/20/2023 URINE CULTU RE penicillin 2 ug/mL susceptib le Not Available [facility] [address] [place] [address], [address], 10/20/2023 10:51:39 10/16/19 24 10/20/2023 URINE CULTU RE rifampin 2 ug/mL intermedi ate Not Available [facility] [address] [place] [address], [address], 10/20/2023 10:51:39 10/16/19 24 10/20/2023 URINE CULTU RE tetracycline >8 ug/mL resistant Not Available [facility] [address] [place] [address], [address], 10/20/2023 10:51:39 10/16/19 24 10/20/2023 URINE CULTU RE vancomycin 1 ug/mL susceptib le Not Available [facility] [address] [place] [address], [address], 10/20/2023 10:51:39 10/16/19 24 10/16/2023 urina lysis panel , auto Unknown Analyte Clean Catch Not Available [facility] [address]kins, [place], [address], 10/16/2023 15:07:53 10/16/19 24 10/16/2023 urina lysis panel , auto Unknown Analyte Yellow Not Available [facility] With [address] [place], [address], 10/16/2023 15:07:53 10/16/19 24 10/16/2023 urina lysis panel , auto Unknown Analyte Cloudy Not Available [facility] With [address] [place], [address], 10/16/2023 15:07:53 10/16/19 24 10/16/2023 urina lysis panel , auto Unknown Analyte 1.015 Not Available [facility] [address]kins, [place], [address], 10/16/2023 15:07:53 10/16/19 24 10/16/2023 urina lysis panel , auto Unknown Analyte 1.003- 1.035 Not Available [facility] [address] [place], [address], 10/16/2023 15:07:53 10/16/19 24 10/16/2023 urina lysis panel , auto Unknown Analyte 6.0 Not Available [facility] With [address] [place], [address], 10/16/2023 15:07:53 10/16/19 24 10/16/2023 urina lysis panel , auto Unknown Analyte 5.0-8. 0 Not Available [facility] With [address] [place], [address], 10/16/2023 15:07:53 10/16/19 24 10/16/2023 urina lysis panel , auto Unknown Analyte 500 Ade/ul (++) Not Available [facility] With [address] [place], [address], 10/16/2023 15:07:53 10/16/19 24 10/16/2023 urina lysis panel , auto Unknown Analyte Negati ve Not Available [facility] With [address] [place], [address], 10/16/2023 15:07:53 10/16/19 24 10/16/2023 urina lysis panel , auto Unknown Analyte Negati ve Not Available [facility] With [address] [place], [address], 10/16/2023 15:07:53 10/16/19 24 10/16/2023 urina lysis panel , auto Unknown Analyte Negati ve Not Available [facility] With [address] [place], [address], 10/16/2023 15:07:53 10/16/19 24 10/16/2023 urina lysis panel , auto Unknown Analyte Negati ve Not Available [facility] With [address] [place], [address], 10/16/2023 15:07:53 10/16/19 24 10/16/2023 urina lysis panel , auto Unknown Analyte Negati ve Not Available [facility] With [address] [place], [address], 10/16/2023 15:07:53 10/16/19 24 10/16/2023 urina lysis panel , auto Unknown Analyte Normal Not Available [facility] With [address]kins, [place], [address], 10/16/2023 15:07:53 10/16/19 24 10/16/2023 urina lysis panel , auto Unknown Analyte Normal Not Available [facility] With [address] [place], [address], 10/16/2023 15:07:53 10/16/19 24 10/16/2023 urina lysis panel , auto Unknown Analyte Negati ve Not Available [facility] With [address] [place], [address], 10/16/2023 15:07:53 10/16/19 24 10/16/2023 urina lysis panel , auto Unknown Analyte Negati ve Not Available [facility] [address]kins, [place], [address], 10/16/2023 15:07:53 10/16/19 24 10/16/2023 urina lysis panel , auto Unknown Analyte 1 mg/dl Not Available [facility] [address] [place], [address], 10/16/2023 15:07:53 10/16/19 24 10/16/2023 urina lysis panel , auto Unknown Analyte Normal 1 mg/dl Not Available [facility] [address] [place], [address], 10/16/2023 15:07:53 10/16/19 24 10/16/2023 urina lysis panel , auto Unknown Analyte Negati ve Not Available [facility] With [address]kins, [place], [address], 10/16/2023 15:07:53 10/16/19 24 10/16/2023 urina lysis panel , auto Unknown Analyte Negati ve Not Available [facility] With [address]kins, [place], [address], 10/16/2023 15:07:53 10/16/19 24 10/16/2023 urina lysis panel , auto Unknown Analyte 50 Russell/ul Not Available [facility] With [address]kins, [place], [address], 10/16/2023 15:07:53 10/16/19 24 10/16/2023 urina lysis panel , auto Unknown Analyte Negati ve Not Available [facility] With [address]kins, [place], [address], 10/16/2023 15:07:53 12/04/19 24 12/04/2023 URINE CULTU RE klebsiella pneumoniae Organi sm: Klebsi pedro pneumo niae Not Available [facility] [address] [place] [address], [address], 12/08/2023 08:01:35 12/04/19 24 12/06/2023 URINE CULTU RE urine culture abnormal ISOLA TE #1 COLON Y COUNT : > 100,0 00 CFU/M L Proba ble Gram Negat rani Bacil lu. ID and sensi tivit y in progr ess. See [place] te Resul t(s) Below Klebs iella pneum oniae Not Available [facility] [address] [place], [address], 12/08/2023 08:01:35 12/04/19 24 12/06/2023 URINE CULTU RE amox/K clav'ate(C) <=8/4 ug/mL susceptib le Not Available [facility] [address] [place] [address], [address], 12/08/2023 08:01:35 12/04/19 24 12/06/2023 URINE CULTU RE cefazolin <=2 ug/mL susceptib le Not Available [facility] [address] [place] [address], [address], 12/08/2023 08:01:35 12/04/19 24 12/06/2023 URINE CULTU RE ceftazidime <=1 ug/mL susceptib le Not Available [facility] [address] [place] [address], [address], 12/08/2023 08:01:35 12/04/19 24 12/06/2023 URINE CULTU RE ceftriaxone <=1 ug/mL susceptib le Not Available [facility] [address] [place] [address], [address], 12/08/2023 08:01:35 12/04/19 24 12/06/2023 URINE CULTU RE cefuroxime <=4 ug/mL susceptib le Not Available [facility] [address] [place] [address], [address], 12/08/2023 08:01:35 12/04/19 24 12/06/2023 URINE CULTU RE ciprofloxaci n <=0.25 ug/mL susceptib le Not Available [facility] [address] [place] [address], [address], 12/08/2023 08:01:35 12/04/19 24 12/06/2023 URINE CULTU RE gentamicin <=4 ug/mL susceptib le Not Available [facility] [address] [place] [address], [address], 12/08/2023 08:01:35 12/04/19 24 12/06/2023 URINE CULTU RE imipenem <=1 ug/mL susceptib le Not Available [facility] [address] [place], [address], 12/08/2023 08:01:35 12/04/19 24 12/06/2023 URINE CULTU RE levofloxacin <=0.5 ug/mL susceptib le Not Available [facility] [address] [place] [address], [address], 12/08/2023 08:01:35 12/04/19 24 12/06/2023 URINE CULTU RE nitrofuranto in 64 ug/mL intermedi ate Not Available [facility] [address] [place] [address], [address], 12/08/2023 08:01:35 12/04/19 24 12/06/2023 URINE CULTU RE piperacillin /alex <=16 ug/mL susceptib le Not Available [facility] [address] [place] [address], [address], 12/08/2023 08:01:35 12/04/19 24 12/06/2023 URINE CULTU RE tetracycline <=4 ug/mL susceptib le Not Available [facility] [address] [place] [address], [address], 12/08/2023 08:01:35 12/04/19 24 12/06/2023 URINE CULTU RE tobramycin <=2 ug/mL susceptib le Not Available [facility] [address] [place] [address], [address], 12/08/2023 08:01:35 12/04/19 24 12/06/2023 URINE CULTU RE trimeth/sulf a <=2/38 ug/mL susceptib le Not Available [facility] [address] [place] [address], [address], 12/08/2023 08:01:35 12/04/19 24 12/04/2023 urina lysis panel , auto Unknown Analyte Clean Catch Not Available [facility] [place] [facility] [address], [place], [address], 12/04/2023 12:12:20 12/04/19 24 12/04/2023 urina lysis panel , auto Unknown Analyte Yellow Not Available [facility] With [address], [place], [address], 12/04/2023 12:12:20 12/04/19 24 12/04/2023 urina lysis panel , auto Unknown Analyte Cloudy Not Available [facility] With [address]kins, [place], [address], 12/04/2023 12:12:20 12/04/19 24 12/04/2023 urina lysis panel , auto Unknown Analyte 1.020 Not Available [facility] With [address] [place], [address], 12/04/2023 12:12:20 12/04/19 24 12/04/2023 urina lysis panel , auto Unknown Analyte 1.003- 1.035 Not Available [facility] With [address]kins, [place], [address], 12/04/2023 12:12:20 12/04/19 24 12/04/2023 urina lysis panel , auto Unknown Analyte 5.0 Not Available [facility] With [address], [place], [address], 12/04/2023 12:12:20 12/04/19 24 12/04/2023 urina lysis panel , auto Unknown Analyte 5.0-8. 0 Not Available [facility] [address]kins, [place], [address], 12/04/2023 12:12:20 12/04/19 24 12/04/2023 urina lysis panel , auto Unknown Analyte 500 Ade/ul (++) Not Available [facility] [address] [place], [address], 12/04/2023 12:12:20 12/04/19 24 12/04/2023 urina lysis panel , auto Unknown Analyte Negati ve Not Available [facility] With [address] [place], [address], 12/04/2023 12:12:20 12/04/19 24 12/04/2023 urina lysis panel , auto Unknown Analyte POSITI VE (Abnor mal) Not Available [facility] With [address] [place], [address], 12/04/2023 12:12:20 12/04/19 24 12/04/2023 urina lysis panel , auto Unknown Analyte Negati ve Not Available [facility] With [address] [place], [address], 12/04/2023 12:12:20 12/04/19 24 12/04/2023 urina lysis panel , auto Unknown Analyte Negati ve Not Available [facility] [address] [place], [address], 12/04/2023 12:12:20 12/04/19 24 12/04/2023 urina lysis panel , auto Unknown Analyte Negati ve Not Available [facility] With [address] [place], [address], 12/04/2023 12:12:20 12/04/19 24 12/04/2023 urina lysis panel , auto Unknown Analyte Normal Not Available [facility] With [address] [place], [address], 12/04/2023 12:12:20 12/04/19 24 12/04/2023 urina lysis panel , auto Unknown Analyte Normal Not Available [facility] With [address] [place], [place], [address], 12/04/2023 12:12:20 12/04/19 24 12/04/2023 urina lysis panel , auto Unknown Analyte Negati ve Not Available [facility] With [address] [place], [address], 12/04/2023 12:12:20 12/04/19 24 12/04/2023 urina lysis panel , auto Unknown Analyte Negati ve Not Available [facility] With [address] [place], [address], 12/04/2023 12:12:20 12/04/19 24 12/04/2023 urina lysis panel , auto Unknown Analyte Normal Not Available [facility] With [address] [place], [place], [address], 12/04/2023 12:12:20 12/04/19 24 12/04/2023 urina lysis panel , auto Unknown Analyte Normal 1 mg/dl Not Available [facility] With [address] [place], [address], 12/04/2023 12:12:20 12/04/19 24 12/04/2023 urina lysis panel , auto Unknown Analyte Negati ve Not Available [facility] With [address] [place], [address], 12/04/2023 12:12:20 12/04/19 24 12/04/2023 urina lysis panel , auto Unknown Analyte Negati ve Not Available [facility] With [address] Wilkins, [place], [address], 12/04/2023 12:12:20 12/04/19 24 12/04/2023 urina lysis panel , auto Unknown Analyte Negati ve Not Available [facility] With [address] Wilkins, [place], [address], 12/04/2023 12:12:20 12/04/19 24 12/04/2023 urina lysis panel , auto Unknown Analyte Negati ve Not Available [facility] With [address] Wilkins, [place], [address], 12/04/2023 12:12:20 02/24/20 24 02/24/2024 IGG IgG 768 mg/dL 700-16 00 normal Not Available [facility] [address] [place] [address], [address], 02/24/2024 11:55:21 02/24/20 24 02/24/2024 COMP. METAB OLIC PANEL glucose 144 mg/dL 74-100 high Not Available [facility] [address] [place] [address], [address], 02/24/2024 11:55:23 02/24/20 24 02/24/2024 COMP. METAB OLIC PANEL blood urea nitrogen 17 mg/dL 6-20 normal Not Available [facility] [address] [place] [address], [address], 02/24/2024 11:55:23 02/24/20 24 02/24/2024 COMP. METAB OLIC PANEL creatinine 0.94 mg/dL 0.70-1 .28 normal Not Available [facility] [address] [place] [address], [address], 02/24/2024 11:55:23 02/24/20 24 02/24/2024 COMP. METAB OLIC PANEL BUN/creatini ne ratio 18 (calc ) 10-20 normal Not Available [facility] [address] [place] [address], [address], 02/24/2024 11:55:23 02/24/20 24 02/24/2024 COMP. METAB OLIC PANEL sodium 132 mmol/ L 136-14 5 low Not Available [facility] [address] [place] [address], [address], 02/24/2024 11:55:23 02/24/20 24 02/24/2024 COMP. METAB OLIC PANEL potassium 4.3 mmol/ L 3.4-5. 0 normal Not Available [facility] [address] [place] [address], [address], 02/24/2024 11:55:23 02/24/20 24 02/24/2024 COMP. METAB OLIC PANEL chloride 99 mmol/ L 98-107 normal Not Available [facility] [address] [place] [address], [address], 02/24/2024 11:55:23 02/24/20 24 02/24/2024 COMP. METAB OLIC PANEL carbon dioxide 24 mmol/ L 22-31 normal Not Available [facility] [address] [place] [address], [address], 02/24/2024 11:55:23 02/24/20 24 02/24/2024 COMP. METAB OLIC PANEL anion gap 9 (calc ) 7-25 normal Not Available [facility] [address] [place] [address], [address], 02/24/2024 11:55:23 02/24/20 24 02/24/2024 COMP. METAB OLIC PANEL calcium 9.0 mg/dL 8.6-10 .2 normal Not Available [facility] [address] [place] [address], [address], 02/24/2024 11:55:23 02/24/20 24 02/24/2024 COMP. METAB OLIC PANEL total protein 6.4 g/dL 6.4-8. 3 normal Not Available [facility] [address] [place] [address], [address], 02/24/2024 11:55:23 02/24/20 24 02/24/2024 COMP. METAB OLIC PANEL albumin 3.6 g/dL 3.5-5. 2 normal Not Available [facility] [address] [place] [address], [address], 02/24/2024 11:55:23 02/24/20 24 02/24/2024 COMP. METAB OLIC PANEL globulin 2.8 1.5-4. 5 normal Not Available [facility] [address] [place] [address], [address], 02/24/2024 11:55:23 02/24/20 24 02/24/2024 COMP. METAB OLIC PANEL albumin/glob ulin ratio 1.3 (calc ) 1.1-2. 5 normal Not Available [facility] [address] [place] [address], [address], 02/24/2024 11:55:23 02/24/20 24 02/24/2024 COMP. METAB OLIC PANEL bilirubin, total 0.7 mg/dL 0.1-1. 2 normal Not Available [facility] [address] [place] [address], [address], 02/24/2024 11:55:23 02/24/20 24 02/24/2024 COMP. METAB OLIC PANEL alkaline phosphatase 144 U/L 40-129 high Not Available [facility] [address] [place] [address], [address], 02/24/2024 11:55:23 02/24/20 24 02/24/2024 COMP. METAB OLIC PANEL AST 12 U/L 0-40 normal Not Available [facility] [address] [place] [address], [address], 02/24/2024 11:55:23 02/24/20 24 02/24/2024 COMP. METAB OLIC PANEL ALT 20 U/L 0-41 normal Not Available [facility] [address] [place] [address], [address], 02/24/2024 11:55:23 02/24/20 24 02/24/2024 COMP. METAB [...] QI/gf r_cal culat orPed Not Available [facility] [address] [place] [address], [address], 02/24/2024 11:55:23 02/24/20 24 02/24/2024 COMPL ETE BLOOD COUNT white blood cells 9.6 10*3/ uL 3.8-10 .8 normal RESUL TS RECHE CKED Hemog mer obtai heather after warmi ng to 37 C. No moscoso e. Not Available [facility] [address] [place] [address], [address], 02/24/2024 12:27:49 02/24/20 24 02/24/2024 COMPL ETE BLOOD COUNT red blood cells 4.24 10*6/ uL 4.20-5 .80 normal Not Available [facility] [address] [place] [address], [address], 02/24/2024 12:27:49 02/24/20 24 02/24/2024 COMPL ETE BLOOD COUNT hemoglobin 12.4 g/dL 14.0-1 8.0 low Not Available [facility] [address] [place] [address], [address], 02/24/2024 12:27:49 02/24/20 24 02/24/2024 COMPL ETE BLOOD COUNT hematocrit 36.3 % 40.0-5 2.0 low Not Available [facility] [address] [place] [address], [address], 02/24/2024 12:27:49 02/24/20 24 02/24/2024 COMPL ETE BLOOD COUNT MCV 86 fL 80-100 normal Not Available [facility] [address] [place] [address], [address], 02/24/2024 12:27:49 02/24/20 24 02/24/2024 COMPL ETE BLOOD COUNT MCH 29 pg 26-35 normal Not Available [facility] [address] [place] [address], [address], 02/24/2024 12:27:49 02/24/20 24 02/24/2024 COMPL ETE BLOOD COUNT MCHC 34 g/dL 32-36 normal Not Available [facility] [address] [place] [address], [address], 02/24/2024 12:27:49 02/24/20 24 02/24/2024 COMPL ETE BLOOD COUNT RDW 15.1 % 11.0-1 5.0 high Not Available [facility] [address] [place] [address], [address], 02/24/2024 12:27:49 02/24/20 24 02/24/2024 COMPL ETE BLOOD COUNT MPV - fL 6.2-10 .5 abnormal Unabl e to obtai n instr ument MPV. Not Available [facility] [address] [place] [address], [address], 02/24/2024 12:27:49 02/24/20 24 02/24/2024 COMPL ETE BLOOD COUNT platelet count - 10*3/ uL 150-40 0 abnormal Unabl e to repor t instr ument plate let count due to plate let aggre gatio n in EDTA. Plate lets appea r: CLUMP ED If recol lecti on is lucia ed - pleas e order test code CPLT. Not Available [facility] [address] [place] [address], [address], 02/24/2024 12:27:49 02/24/20 24 02/24/2024 COMPL ETE BLOOD COUNT neutrophil,a bsolute 5.4 10*3/ uL 1.6-8. 4 normal Not Available [facility] [address] [place] [address], [address], 02/24/2024 12:27:49 02/24/20 24 02/24/2024 COMPL ETE BLOOD COUNT lymphocyte,a bsolute 2.7 10*3/ uL 0.4-5. 1 normal Not Available [facility] [address] [place] [address], [address], 02/24/2024 12:27:49 02/24/20 24 02/24/2024 COMPL ETE BLOOD COUNT monocyte,abs olute 0.6 10*3/ uL 0.0-1. 2 normal Not Available [facility] [address] [place] [address], [address], 02/24/2024 12:27:49 02/24/20 24 02/24/2024 COMPL ETE BLOOD COUNT eosinophil,a bsolute 0.7 10*3/ uL 0.0-0. 8 normal Not Available [facility] [address] [place] [address], [address], 02/24/2024 12:27:49 02/24/20 24 02/24/2024 COMPL ETE BLOOD COUNT basophil,abs olute 0.1 10*3/ uL 0.0-0. 3 normal Not Available [facility] [address] [place] [address], [address], 02/24/2024 12:27:49 02/24/20 24 02/24/2024 COMPL ETE BLOOD COUNT % neutrophils 56.8 % 42.0-7 8.0 normal Not Available [facility] [address] [place] [address], [address], 02/24/2024 12:27:49 02/24/20 24 02/24/2024 COMPL ETE BLOOD COUNT % lymphocytes 28.7 % 11.0-4 7.0 normal Not Available [facility] [address] [place] [address], [address], 02/24/2024 12:27:49 02/24/20 24 02/24/2024 COMPL ETE BLOOD COUNT % monocytes 6.0 % 0.0-11 .0 normal Not Available [facility] [address] [place] [address], [address], 02/24/2024 12:27:49 02/24/20 24 02/24/2024 COMPL ETE BLOOD COUNT % eosinophils 7.5 % 0.0-7. 0 high Not Available [facility] [address] [place] [address], [address], 02/24/2024 12:27:49 02/24/20 24 02/24/2024 COMPL ETE BLOOD COUNT % basophils 1.0 % 0.0-3. 0 normal Not Available [facility] [address] [place] [address], [address], 02/24/2024 12:27:49 02/24/20 24 02/24/2024 COMPL ETE BLOOD COUNT nucleated red cells 0.1 % 0.0-0. 9 normal Not Available [facility] [address] [place] [address], [address], 02/24/2024 12:27:49 02/24/20 24 02/24/2024 COMPL ETE BLOOD COUNT nucleated RBCs, absolute 0.01 10*3/ uL not estab. normal Not Available [facility] [address] [place] [address], [address], 02/24/2024 12:27:49 02/24/2002/24/2024 MORPH OLOGY anisocytosis MODERA TE abnormal Not Available [facility] [address] [place], [address], 02/24/2024 12:27:52 Result Notes None recorded. Problems Name Problem SNOMED Code Status Onset Date Resolution Date Notes Provider Name and Address Organization Details Recorded Time Nocturia 355355152 Active 2014 From Automated Load;Prov ider: LoboGarciain;St atus: Active Not Available [facility] 6 08:27:56 Lower urinary tract symptoms due to benign prostatic hypertrop hy 73421954837 101 Active 2014 From Automated Load;Prov ider: LoboGarciain;St atus: Active Not Available [facility] 6 08:27:56 Increased frequency of urination 699065140 Active 2014 From Automated Load;Prov ider: LoboGarciain;St atus: Active Not Available [facility] 6 08:27:56 Urge incontine nce of urine 45627733 Active 2015 From Automated Load;Prov ider: Lobo, Stacy;St atus: Active Not Available [facility] 6 08:27:56 Urgent desire to urinate 73693581 Active 2015 From Automated Load;Prov ider: LoboGarciain;St atus: Active Not Available [facility] 6 08:27:56 Multiple sclerosis 85594766 Active 2015 From Automated Load;Prov ider: Lobo Stacy;St atus: Active Not Available [facility] 6 08:27:56 Weakness of left arm 21581244279 924819 [facility] 10:22:02 Edema 561342442 Active 2019 [facility] 0 07:35:39 Weakness of left leg 06851471941 371751 Active 2019 [facility] 07:35:40 Problem Notes None recorded. Procedures Surgical History Date Name Laterality Status Provider Name and Address Organization Details Recorded Time 12/04/19 24 Lupron Administration completed Murelene Tripp [facility] 12/04/2023 18:14:34 05/29/19 24 Lupron Administration completed Murelene Tripp [facility] 05/29/2023 13:00:54 11/29/19 23 Lupron Administration completed Murelene Tripp [facility] 11/28/2022 12:56:58 05/31/19 23 [facility] 14:30:56 05/23/19 22 [facility] 06/14/2021 15:48:50 03/24/19 14 [facility] 13:37:26 03/24/18 56 Appendectomy completed Beulah [facility] 07/28/2018 13:37:18 Imaging Results None recorded. Procedure [...] Updated DateTime 05/29/2023 175.26 cm 36.9 kg/m2 553143.09 g Urie Tripp [facility] 05/29/2023 12:57:11 Date Recorded Body height Provider Name an d Address Organization Details Last Updated DateTime 08/26/2023 175.26 cm Janeth Estefany [facility] 0 08/26/2023 08:18:10 Date Recorded Body height Body mass index (BMI) Body weight Provider Name and Address Organization Details Last Updated DateTime 10/16/2023 175.26 cm 36.9 kg/m2 629129.09 g Murelene Tripp [facility] 10/16/2023 15:07:11 Date Recorded Body height Body mass index (BMI) Body weight Provider Name and Address Organization Details Last Updated DateTime 12/04/2023 175.26 cm 36.9 kg/m2 559243.09 g Abrahan Almaguer [facility] 12/04/2023 13:20:26 Date Recorded Body height Provider Name an d Address Organization Details Last Updated DateTime 02/24/2024 175.26 cm Janeth Allison [facility] 1 04/26/2023 08:14:12 Social History Question Answer Notes LastModified by Organizat ion Details LastModified Time Tobacco Smoking Status Current Some Day Smoker [facility]/28/2018 13:36:22 What Is Your Level Of [...] quadrivalent, preservative 8 completed Murelene Tripp null, [facility] 05/01/2023 15:41:04 pneumococcal, unspecified formulation 7 [facility]23 15:41:04 Hep A, unspecified formulation 8 completed [facility] 12/04/2023 13:20:33 Influenza, split virus, quadrivalent, preservative 9 completed [facility] 05/01/2023 15:41:04 Influenza, split virus, quadrivalent, preservative 0 completed [facility] 05/01/2023 15:41:04 SARS-COV-2 (COVID-19) vaccine, UNSPECIFIED 1 completed Murelene Tripp null, [facility] 12/04/2023 13:20:33 SARS-COV-2 (COVID-19) vaccine, UNSPECIFIED 1 completed Murelene Tripp null, [facility] 12/04/2023 13:20:33 Past Encounters Encounter ID Performer Location Encounter Start Date Encounter Closed Date Diagnosis/Indication Diagnosis SNOMED-CT Code Diagnosis ICD10 Code Diagnosis Note [id number] FRANNY DAVILA MD [facility]UROLOG[facility] [address] [place] [address] 07/28/2018 13:20:05 07/28/2018 16:17:39 Multiple sclerosis 40472805 G35 Infection screening 2437 91634 Z11.59 [id number] FRANNY DAVILA MD [facility]OLOG[facility] [place] [facility] [address] [place] [address] 2 09/17/2018 08:37:06 09/17/2018 09:28:57 Multiple sclerosis 73942120 G35 [id number] FRANNY DAVILA MD [facility]UROLOGY [place] [facility] [address] [place] [address] 12/07/2018 10:23:49 12/07/2018 11:43:47 Multiple sclerosis 51997065 G35 Primary pr ogressive multiple sclerosis 014021409 G35 Abnormal g ait due to muscle weakness 033890266 M62.81 Needs walk ing aid in home 760412904 Z74.09 Neurogenic dysfunction of urinary bladder 804882552 N31.9 Long-term drug therapy 120131476 Z79.899 Weakness of left arm 362 2748881 7387689 G83.24 [id number] FRANNY DAVILA MD NEUROLOGY [place] [address] 1 03/12/2019 10:34:22 03/12/2019 12:31:08 Multiple sclerosis 54790024 G35 [id number] FRANNY DAVILA MD NEUROLOGY [place] [address] 1 10/05/2019 10:11:43 10/05/2019 11:33:44 Multiple sclerosis 37319299 G35 Weakness of left arm 092 6900700 5240106 G83.24 Weakness of left leg 783 4571839 0348691 G83.10 Edema 276546808 R60.9 Primary pr ogressive multiple sclerosis 991852275 G35 Long-term drug therapy 045974775 Z79.307 [id number] FRANNY DAVILA MD NEUROLOGY [place] [address] 03/30/2020 08:02:28 03/30/2020 08:52:00 Multiple sclerosis 35179355 G35 Primary pr ogressive multiple sclerosis 829342495 G35 Long-term current use of drug therapy 809930488 Z79.899 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 Abnormal g ait due to muscle weakness 382528076 M62.81 [id number] FRANNY DAVILA MD NEUROLOGY [address] [address] 10/02/2020 07:59:39 10/02/2020 11:08:30 Primary progressive multiple sclerosis 469077308 G35 Long-term current use of drug therapy 050967642 Z79.899 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 Abnormal g ait due to muscle weakness 946850989 M62.81 Paresthesi a of upper limb 37885413 R20.2 Paresthesi a of lower extremity 181821795 R20.2 [id number] FRANNY DAVILA MD NEUROLOGY [address] [address] 03/05/2021 08:26:17 03/05/2021 09:19:51 Primary progressive multiple sclerosis 243313051 G35 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 Abnormal g ait due to muscle weakness 373944569 M62.81 Nocturia 221875414 R35.1 [id number] STACY DIAMOND MD [facility] [address] [address] 05/24/2021 12:34:51 05/24/2021 20:50:59 Benign prostatic hyperplasia with outflow obstruction 580233632 N40.1 Increased frequency of urination 075510644 R35.0 Nocturia 205349608 R35.1 [id number] STACY DIAMOND MD [facility] [address] [place] [address] ,[place] [address] 06/14/2021 13:34:12 06/20/2021 17:49:03 Postoperative care 205622933 Z48.89 Malignant neoplasm of prostate 119264845 C61 [id number] STACY DIAMOND MD [facility] [address] [place] [address] ,[place] [address] 08/02/2021 12:37:32 08/08/2021 07:49:44 Urge incontinence of urine 73180218 N39.41 Urinary tr act infectious disease 00056654 N39.0 Benign pro static hyperplasia with outflow obstruction 836207013 N40.1 [id number] FRANNY DAVILA MD NEUROLOGY [address] [address] 09/03/2021 08:05:11 09/03/2021 08:50:06 Primary progressive multiple sclerosis 360806237 G35 Abnormal g ait due to muscle weakness 591406466 M62.81 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 155466681 Z99.3 [id number] STACY DIAMOND MD [facility] [address] ,[place] [address] 10/04/2021 14:21:00 10/05/2021 14:25:46 Benign prostatic hyperplasia with outflow obstruction 493397278 N40.1 Urge incon tinence of urine 14800042 N39.41 [id number] STACY DIAMOND MD [facility] [address] [place] [address] ,[place] [address] 01/31/2022 12:40:52 02/20/2022 13:17:44 Benign prostatic hyperplasia with outflow obstruction 845350416 N40.1 Urge incon tinence of urine 04380944 N39.41 Malignant neoplasm of prostate 256116646 C61 [id number] STACY DIAMOND MD SURGERY SCHEDULE [address] [place], [place] [address] 02/21/2022 06:59:24 02/21/2022 06:59:47 [id number] FRANNY DAVILA MD NEUROLOGY [place] [address] [place] [address] 1 03/04/2022 07:53:47 03/05/2022 08:48:30 Multiple sclerosis 40901297 G35 Long-term current use of drug therapy 039229067 Z79.899 Abnormal g ait due to muscle weakness 074334385 M62.81 Unsteady w hen standing 101803218 R26.81 [id number] STACY DIAMOND MD [facility] [address],[place] [address] 03/21/2022 13:39:55 04/03/2022 11:08:21 Malignant neoplasm of prostate 865283287 C61 [id number] [facility] [address] [place] [address] 05/30/2022 14:08:49 05/31/2022 09:49:17 Malignant neoplasm of prostate 902756851 C61 Prostate s pecific antigen above reference range 312832315 R97.20 [id number] FR[place] [address] 08/22/2022 07:54:52 08/23/2022 04:12:24 Multiple sclerosis 50930229 G35 Abnormal g ait due to muscle weakness 771127076 M62.81 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 Order provided [id number] STACY DIAMOND MD [facility] [address] ,[place] [address] 11/28/2022 12:51:42 11/28/2022 15:53:06 Malignant neoplasm of prostate 571497531 C61 Nocturia 028634480 R35.1 [id number] FRANNY DAVILA MD NEUROLOGY [place] [address] 1 02/24/2023 08:47:29 02/24/2023 09:44:47 Multiple sclerosis 31993282 G35 Disability 54812925 Z78. 9 Walking disability 72576 8008 R26.2 [id number] STACY DIAMOND MD [facility] [address] [place] [address] [place] [address] 05/01/2023 14:17:13 05/02/2023 15:10:44 Urinary tract infectious disease 99923116 N39.0 Malignant neoplasm of prostate 536203135 C61 [id number] STACY DIAMOND MD [facility] [address] [place] [address] [place] [address] 05/29/2023 12:52:08 05/29/2023 15:53:22 Urinary tract infectious disease 13679204 N39.0 Malignant neoplasm of prostate 195580029 C61 [id number] FRANNY DAVILA MD NEUROLOGY [address] [address] 08/26/2023 08:17:18 08/27/2023 05:19:13 Long-term current use of drug therapy 992710884 Z79.899 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 94515 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.20 Abnormal g ait due to muscle weakness 332213385 M62.81 Neurogenic dysfunction of urinary bladder 890057678 N31.9 Multiple sclerosis 52622 007 G35 [id number] STACY DIAMOND MD [facility] [address] ,[place] [address] 10/16/2023 14:44:01 10/17/2023 12:16:23 Urinary tract infectious disease 48356426 N39.0 Malignant neoplasm of prostate 861357494 C61 Tinea cruris 099416186 B 35.6 Urinary incontinence 165 090305 R32 [id number] STACY DIAMOND MD [facility] [address] [address] 12/04/2023 13:00:03 12/04/2023 18:37:32 Urinary tract infectious disease 59662067 N39.0 see above Malignant neoplasm of prostate 362038837 C61 Lupron injection today Tinea cruris 310236294 B 35.6 Urinary incontinence 165 503669 R32 [id number] FRANNY DAVILA MD NEUROLOGY [address] [address] 02/24/2024 08:13:44 02/26/2024 12:06:49 Multiple sclerosis 53275565 G35 Long-term current use of drug therapy 275336492 Z79.899 High risk medication monitoring indicated 4433259844 8742983 Z76.89 Disability 66134727 Z78. 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 [facility] [id number] 9286150 Z74.1 Taking hig h risk medication 1493149172 18251 Z91.89 Health Concerns Section Related Observation LastModified by Organization Detai ls LastModified Time None Recorded Concern Status LastModified by Organization Details LastModified Time None Recorded Advance Directives Directive None Recorded Payers Encounter Date Sequence Insurance Name Policy Number Policy Munoz Covered Member ID Munoz Member ID Guarantor Name 05/29/2023 1 [place] David Hughes [place] [id number] Med Hughes [place] 05/29/2023 2 [employer] OPTIONS (MEDICARE SUPPLEMENT) Med Hughes [place] [id number] Med Hughes [place] 08/26/2023 1 [place] David Hughes [place] [id number] Med Hughes [place] 08/26/2023 2 [employer] OPTIONS (MEDICARE SUPPLEMENT) [facility] [id number] [facility] 10/16/2023 1 [place] [facility] [id number] [facility] 10/16/2023 2 [employer] OPTIONS (MEDICARE SUPPLEMENT) [facility] [id number] [facility] 12/04/2023 1 [place] [facility] [place] [id number] [facility] [place] 12/04/2023 2 [employer] OPTIONS (MEDICARE SUPPLEMENT) [facility] [place] [id number] [facility] 02/24/2024 1 [place] [facility] [place] [id number] [facility] 02/24/2024 2 [employer] OPTIONS (MEDICARE SUPPLEMENT) [facility] [place] [id number] [facility] Notes Date Note Type Note Provider Name [...] 2022- 0.24August 2021- 3.72 STACY DIAMOND MD [address] [place] [address], [phone], [facility] 05/29/2023 19:15:23 08/26/2023 text/html 78 yo here [...] is September 07, he gets [facility] at [facility]. FRANNY DAVILA MD [address] [place] [address], [phone], [facility] 08/27/2023 07:18:32 10/16/2023 text/html 78-year-old male in the office for evaluation of incontinence. He is currently taking alfuzosin. He has a rash in his genitourinary area. He is having a hard time keeping dry. He reports constant dribble. Daytime and night time frequency every 2 hours. PSAFebruary 2023-0.13August 2022-0.176June 2022- 0.24August 2021- 3.72 STACY DIAMOND MD [address] [place] [address], [phone], [facility] 11/02/2023 15:24:08 12/04/2023 text/html 78-year-old male in [...] 2022- 0.24August 2021- 3.72 STACY DIAMOND MD [address] [place] [address], [phone], [facility] 12/04/2023 19:37:14 02/24/2024 text/html Telehealth visit 79 [...] CMP, IgG Reg Nick Nolasco MD in [place] is reg . FRANNY DAVILA MD [address] [place] [address] [place], [phone], [facility] 02/24/2024 13:31:52
--- OUTSIDE RECORDS SUMMARY | 2024-07-27 07:38 | XMS_ITS | Continuity of Care Document ---
Author Name [facility] Organization [facility] Care Team Providers Care Communications Assistant Name Role Phone [facility] Unavailable Unavailable Problems Combined list of problems from Department of [facility] and [facility] facilities. It does not include entries that were removed or entered in error. Problem Status Onset Date Problem Type Date of Resolution Comments Source Age related macular degeneration Active Condition [facility] Carcinoma of prostate Active Condition [facility] Closed fracture of shaft of right fibula Active Condition [facility] Constipation Active Condition [facility] Essential hypertension Active Condition [facility] Gastroesophageal reflux disease without esophagitis Active Condition [facility] Hyperlipidemia Active Condition [place] [facility] Incontinence Active Condition [facility] Multiple sclerosis Active Condition [facility] Pain of right knee joint Active Condition [facility] Type 2 diabetes mellitus Active Condition [facility] Diagnosis: ICD-10-CM I10 Essential (primary) hypertension Active Diagnosis [facility] Diagnosis: ICD-10-CM G35 Multiple sclerosis Active Diagnosis [facility] Diagnosis: ICD-10-CM Z65.9 Problem related to unspecified psychosocial circumstances Active Diagnosis [facility] Diagnosis: ICD-10-CM K21.9 Gastro-esophageal reflux disease without esophagitis Active Diagnosis [facility] Diagnosis: ICD-10-CM Z79.899 Other group home (current) drug therapy Active Diagnosis [facility] Diagnosis: ICD-10-CM M25.561 Pain in right knee Active Diagnosis [facility] Diagnosis: ICD-10-CM S82.401A Unsp fracture of shaft of right fibula, init for clos fx Active Diagnosis [facility] Diagnosis: ICD-10-CM Z75.5 Holiday relief care Active Diagnosis [facility] Diagnosis: ICD-10-CM E66.09 Other obesity due to excess calories Active Diagnosis [place] Diagnosis: ICD-10-CM Z71.2 Person consulting for explanation of exam or test findings Active Diagnosis [place] [facility] Medications Combined list of outpatient medications [...] DAILY ORAL ACTIVE COMERBUCK 2023 [place] [facility] ATORVASTATI N CA 20MG TAB TAKE ONE TABLET BY MOUTH AT BEDTIME ORAL ACTIVE COMERBUCK 2023 [place] [facility] BISOPROLOL FUMARATE 5MG TAB TAKE ONE TABLET BY MOUTH DAILY ORAL ACTIVE COMERBUCK 2023 [place] [facility] CHOLECALCIF THAIS 10MCG (400UNIT) TAB TAKE ONE TABLET BY MOUTH DAILY ORAL ACTIVE COMERBUCK 2023 [place] [facility] CHOLECALCIF THAIS 50MCG (2,000UNIT) TAB TAKE ONE TABLET BY MOUTH TWICE A DAY ORAL ACTIVE COMER,BUCK Campos 2023 [place] [facility] CLOTRIMAZOL E 1% CREAM,TOP APPLY SMALL AMOUNT TO AFFECTED AREA THREE TIMES A DAY NEEDED FOR FUNGAL INFECTIO N APPLY TO GROIN RASH TOPICA Deshaun ACTIVE 05/19/2025 [id number] 5 FLO HENDERSON 2024 60 [place] DICLOFENAC NA 1% GEL,TOP APPLY 2 GRAM STRIP TO AFFECTED AREA EVERY 6 HOURS NEEDED FOR PAIN APPLY TO RIGHT KNEE TOPICA L ACTIVE 05/19/2025 [id number] 5 FLO HENDERSON 2024 200 [place] FAMOTIDINE 20MG TAB TAKE ONE TABLET BY MOUTH TWICE A DAY NEEDED ORAL ACTIVE COMERBUCK 2023 [place] [facility] GABAPENTIN TAB TAKE 100MG BY MOUTH FOUR TIMES A DAY ORAL ACTIVE COMERBUCK 2023 [place] [facility] HYDROPHILIC (EQV EUCERIN) CREAM,TOP APPLY SMALL AMOUNT TO AFFECTED AREA NEEDED FOR DRY SKIN TOPICA L ACTIVE 05/19/2025 [id number] 5 FLO HENDERSON 2024 454 [place] IPRATROPIUM BR 0.03% SOLN,SPRAY, NASAL SPRAY 1 SPRAY IN NOSE WITH MEALS FOR NASAL ALLERGIE S NASAL ACTIVE 05/19/2025 [id number] 5 FLO HENDERSON 2024 30 [place] LEUPROLIDE ACETATE (ELIGARD) 45MG (6 MONTH) INJ,SUSP,LA 45MG (1 DOSE) UNDER THE SKIN ONCE SUBCUT ANEOUS ACTIVE COMER,BUCK Campos 2023 [place] [facility] MELOXICAM 7.5MG TAB TAKE ONE TABLET BY MOUTH DAILY FOR PAIN OR INFLAMMA TION -TAKE WITH FOOD OR MILK ORAL DISCONT INUED BY SOPHY Campos 05/01/2025 [id number] 5 FLO HENDERSON 2024 90 [place] METFORMIN HCL 500MG 24HR TAB,SA TAKE ONE TABLET BY MOUTH DAILY ORAL ACTIVE COMERBUCK 2023 [place] [facility] METHENAMINE HIPPURATE 1GM TAB TAKE ONE TABLET BY MOUTH TWICE A DAY ORAL ACTIVE COMERBUCK 2023 [place] [facility] MULTIVITAMI N/OPTH AREDS SINGLE STRENGTH TAB TAKE 2 CAPSULES BY MOUTH DAILY ORAL ACTIVE COMERBUCK 2023 [place] [facility] OCRELIZUMAB INJ,SOLN INJECT INTO THE VEIN DIRECTED Q 6 MONTHS INTRAV ENOUS ACTIVE COMERBUCK 2023 [place] [facility] POLYETHYLEN E GLYCOL 3350 PWDR,ORAL MIX 17 GRAMS (ONE CAPFUL FILLED TO LINE) IN LIQUID AND TAKE BY MOUTH DAILY ORAL ACTIVE COMERBUCK 2023 [place] [facility] PSYLLIUM CAP,ORAL TAKE 1 CAPSULE BY MOUTH DAILY ORAL ACTIVE COMER,BUCK Campos 2023 [place] [facility] SILODOSIN 8MG CAP,ORAL TAKE 1 CAPSULE BY MOUTH DAILY ORAL ACTIVE COMER,BUCK Andres 2023 [place] [facility] Immunizations Combined list of available immunizations from the Department of Defense and Veterans Affairs facilities. Immunization Series Date Given Administered By Site Reaction Lot Number CVX Code Drug Garment Steamer Status Comments Source INFLUENZA, UNSPECIFIED FORMULATION 2023 88 complet ed HISTORICA L INFORMATI ON - FROM PATIENT'S WRITTEN RECORD, [place] [facility] COVID-19 (MODERNA), MRNA, LNP-S, PF, 50 MCG/0.5 ML (AGES 12+ YEARS) 6 2022 312 complet ed HISTORICA L INFORMATI ON - FROM OTHER REGISTRY, [place] [facility] INFLUENZA, HIGH-DOSE, QUADRIVALENT, PF 1 2022 197 complet ed HISTORICA L INFORMATI ON - FROM OTHER REGISTRY, [place] [facility] COVID-19 (PFIZER), MRNA, LNP-S, BIVALENT, PF, 30 MCG/0.3 ML DOSE 5 2021 300 complet ed HISTORICA L INFORMATI ON - FROM OTHER REGISTRY, [place] [facility] COVID-19 (PFIZER), MRNA, LNP-S, PF, 30 MCG/0.3 ML DOSE, HERMAN-SUCROSE (AGES 12+ YEARS) 4 2021 217 complet ed HISTORICA L INFORMATI ON - FROM OTHER REGISTRY, [place] [facility] [place] COVID-19 (PFIZER), MRNA, LNP-S, PF, 30 MCG/0.3 ML DOSE 3 2020 208 complet ed HISTORICA L INFORMATI ON - FROM OTHER REGISTRY, [place] [facility] COVID-19 ([employer]), MRNA, LNP-S, PF, 30 MCG/0.3 ML DOSE 2 2020 208 complet ed HISTORICA L INFORMATI ON - FROM OTHER REGISTRY, [place] [facility] COVID-19 ([employer]), MRNA, LNP-S, PF, 30 MCG/0.3 ML DOSE 1 2020 208 complet ed HISTORICA L INFORMATI ON - FROM OTHER REGISTRY, [place] [facility] ZOSTER RECOMBINANT 1 2018 187 complet ed HISTORICA L INFORMATI ON - FROM OTHER REGISTRY, [place] [facility] HEPB-CPG 2 2018 189 complet ed HISTORICA L INFORMATI ON - FROM OTHER REGISTRY, [place] [facility] HEPB-CPG 1 2018 189 complet ed HISTORICA L INFORMATI ON - FROM OTHER REGISTRY, [place] [facility] HEP A, ADULT 2 2018 52 complet ed HISTORICA L INFORMATI ON - FROM OTHER REGISTRY, [place] [facility] HEP A, ADULT 1 2017 52 complet ed HISTORICA L INFORMATI ON - FROM OTHER REGISTRY, [place] [facility] Results Combined list of recent chemistry, [...] 22, 2024 08:13 AM Reporting Lab: [facility] [address] [address] Performing Lab: [facility] [address] [address] [facility] IRON/TIBC IRON BINDING CAPACITY [MASS/VOLUM E] IN SERUM OR PLASMA 233 mg/dL 250 - 425 05/25 L Specimen Type: PLASMA No comment entered. Ordering Provider: EZE HENDERSON Report Released Date/Time: Apr 22, 2024 08:13 AM Reporting Lab: [facility] [address] [address] Performing Lab: [facility] [address] [address] [facility] IRON/TIBC IRON SATURATION [MOLAR FRACTION] IN SERUM OR PLASMA 23 20 - 50 05/25 Specimen Type: PLASMA No comment entered. Ordering Provider: EZE HENDERSON Report Released Date/Time: Apr 22, 2024 08:13 AM Reporting Lab: [place] [address] Performing Lab: [address] FERRITIN FERRITIN [MASS/VOLUM E] IN SERUM OR PLASMA 141.1 ng/mL 21.8 - 274.7 05/25 Specimen Type: PLASMA No comment entered. Ordering Provider: EZE HENDERSON Report Released Date/Time: Apr 22, 2024 08:13 AM Reporting Lab: [place] [address] Performing Lab: [address] CBC/PLT LEUKOCYTES [#/VOLUME] IN BLOOD BY AUTOMATED COUNT 9.6 10*3/u L 5.0 - 10.0 05/25 Specimen Type: BLOOD No comment entered. Ordering Provider: EZE HENDERSON Report Released Date/Time: Apr 22, 2024 08:13 AM Reporting Lab: [place] [address] Performing Lab: [address] CBC/PLT ERYTHROCYTE S [#/VOLUME] IN BLOOD BY AUTOMATED COUNT 4.00 10*6/u L 4.6 - 6.2 05/25 L Specimen Type: BLOOD No comment entered. Ordering Provider: EZE HENDERSON Report Released Date/Time: Apr 22, 2024 08:13 AM Reporting Lab: [place] [address] Performing Lab: [address] CBC/PLT HEMOGLOBIN [MASS/VOLUM E] IN BLOOD 11.3 g/dL 14.0 - 18.0 05/25 L Specimen Type: BLOOD No comment entered. Ordering Provider: EZE HENDERSON Report Released Date/Time: Apr 22, 2024 08:13 AM Reporting Lab: [address] [address] Performing Lab: [address] [address] [facility] CBC/PLT HEMATOCRIT [VOLUME FRACTION] OF BLOOD BY AUTOMATED COUNT 35.0 42.0 - 52.0 05/25 L Specimen Type: BLOOD No comment entered. Ordering Provider: EZE HENDERSON Report Released Date/Time: Apr 22, 2024 08:13 AM Reporting Lab: [address] [address] Performing Lab: [address] [address] [facility] CBC/PLT MCV [ENTITIC VOLUME] BY AUTOMATED COUNT 87.5 fL 80.0 - 94.0 05/25 Specimen Type: BLOOD No comment entered. Ordering Provider: EZE HENDERSON Report Released Date/Time: Apr 22, 2024 08:13 AM Reporting Lab: [address] [address] Performing Lab: [address] [address] [facility] CBC/PLT MCH [ENTITIC MASS] BY AUTOMATED COUNT 28.3 pg 27.0 - 31.0 05/25 Specimen Type: BLOOD No comment entered. Ordering Provider: EZE HENDERSON Report Released Date/Time: Apr 22, 2024 08:13 AM Reporting Lab: [address] [address] Performing Lab: [address] [address] [facility] CBC/PLT MCHC [MASS/VOLUM E] BY AUTOMATED COUNT 32.3 g/dL 32.0 - 36.0 05/25 Specimen Type: BLOOD No comment entered. Ordering Provider: EZE HENDERSON Report Released Date/Time: Apr 22, 2024 08:13 AM Reporting Lab: [address] [address] Performing Lab: [address] [address] [facility] CBC/PLT PLATELETS [#/VOLUME] IN BLOOD 232 10*3/u L 150 - 450 05/25 Specimen Type: BLOOD No comment entered. Ordering Provider: EZE HENDERSON Report Released Date/Time: Apr 22, 2024 08:13 AM Reporting Lab: [address] [address] Performing Lab: [place] [phone] [place] [address] CBC/PLT PLATELET MEAN VOLUME [ENTITIC VOLUME] IN BLOOD 11.0 fL 9.0 - 13.1 05/25 Specimen Type: BLOOD No comment entered. Ordering Provider: EZE HENDERSON Report Released Date/Time: Apr 22, 2024 08:13 AM Reporting Lab: [place] [phone] Performing Lab: [place] [phone] [place] [address] CBC/PLT ERYTHROCYTE DISTRIBUTIO N WIDTH [ENTITIC VOLUME] BY AUTOMATED COUNT 15.4 11.0 - 16.0 05/25 Specimen Type: BLOOD No comment entered. Ordering Provider: EZE HENDERSON Report Released Date/Time: Apr 22, 2024 08:13 AM Reporting Lab: [place] [phone] Performing Lab: [place] [phone] [place] [address] CBC/PLT NUCLEATED ERYTHROCYTE S/100 ERYTHROCYTE S IN BLOOD 0.0 0.0 - 0.0 05/25 Specimen Type: BLOOD No comment entered. Ordering Provider: EZE HENDERSON Report Released Date/Time: Apr 22, 2024 08:13 AM Reporting Lab: [address] [address] Performing Lab: [address] [address] [facility] DRUG SCREEN EXPANDED IN-HOUSE TETRAHYDROC ANNABINOL [PRESENCE] [...] Feb 06, 2024 03:45 PM Reporting Lab: [address] [address] Performing Lab: [place] [id number] [place] [address] DRUG SCREEN EXPANDED IN-HOUSE AMPHETAMINE S [PRESENCE] [...] Feb 06, 2024 03:45 PM Reporting Lab: [address] [address] Performing Lab: [address] [address] [facility] DRUG SCREEN EXPANDED IN-HOUSE BARBITURATE S [PRESENCE] [...] Feb 06, 2024 03:45 PM Reporting Lab: [address] [address] Performing Lab: [place] [id number] [place] [address] DRUG SCREEN EXPANDED IN-HOUSE BENZODIAZEP JUAN FRANCISCO [...] Feb 06, 2024 03:45 PM Reporting Lab: [address] [address] Performing Lab: [place] [id number] [place] [address] DRUG SCREEN EXPANDED IN-HOUSE BENZOYLECGO NINE [PRESENCE] [...] Feb 06, 2024 03:45 PM Reporting Lab: [place] [phone] Performing Lab: [place] [phone] [facility] DRUG SCREEN EXPANDED IN-HOUSE OPIATES [PRESENCE] IN [...] Feb 06, 2024 03:45 PM Reporting Lab: [address] [address] Performing Lab: [place] [phone] [facility] DRUG SCREEN EXPANDED IN-HOUSE METHADONE [PRESENCE] IN [...] Feb 06, 2024 03:45 PM Reporting Lab: [address] [address] Performing Lab: [address] [address] [facility] DRUG SCREEN EXPANDED IN-HOUSE OXYCODONE [PRESENCE] IN [...] Feb 06, 2024 03:45 PM Reporting Lab: [address] [address] Performing Lab: [address] [address] [facility] DRUG SCREEN EXPANDED IN-HOUSE BUPRENORPHI NE+NORBUPRE NORPHINE [...] Feb 06, 2024 03:45 PM Reporting Lab: [address] [address] Performing Lab: [place] [phone] [facility] DRUG SCREEN EXPANDED IN-HOUSE FENTANYL SCREEN IN-HOUSE [...] Feb 06, 2024 03:45 PM Reporting Lab: [address] [address] Performing Lab: [address] [phone] [facility] MICROALBU MIN/CREAT RATIO CREATININE [MASS/VOLUM E] IN URINE 102.7 mg/dL 02/16 Specimen Type: URINE Comment: Unable to calculate ratio due to low Microalbumi n result. Ordering Provider: BUCK HUNT Report Released Date/Time: Feb 06, 2024 03:45 PM Reporting Lab: [place] [phone] Performing Lab: [place] [phone] [facility] MICROALBU MIN/CREAT RATIO MICROALBUMI N [MASS/VOLUM E] IN URINE <5.0mg /L 0.0 - 30.0 02/16 Specimen Type: URINE Comment: Unable to calculate ratio due to low Microalbumi n result. Ordering Provider: BUCK HUNT Report Released Date/Time: Feb 06, 2024 03:45 PM Reporting Lab: [place] [phone] Performing Lab: [place] [phone] [facility] MICROALBU MIN/CREAT RATIO MICROALBUMI N/CREATININ E [MASS RATIO] IN URINE commen tug/mg {creat } 02/16 Specimen Type: URINE Comment: Unable to calculate ratio due to low Microalbumi n result. Ordering Provider: BUCK HUNT Report Released Date/Time: Feb 06, 2024 03:45 PM Reporting Lab: [address] [address] Performing Lab: [place] [phone] [facility] PANEL 1 CREATININE [MASS/VOLUM E] IN SERUM [...] 2024 03:45 PM Reporting Lab: SHIRA MORGAN [address] [address] Performing Lab: SHIRA MORGAN [address] [address] [facility] PANEL 1 UREA NITROGEN [MASS/VOLUM E] IN [...] 2024 03:45 PM Reporting Lab: SH[place]A MORGAN [address] [address] Performing Lab: SHIRA MORGAN [address] [address] [facility] PANEL 1 GLUCOSE [MASS/VOLUM E] IN SERUM [...] 2024 03:45 PM Reporting Lab: SHIRA MORGAN [facility] [address] [facility] [address] Performing Lab: SHIRA MORGAN [facility] [address] [facility] [address] [facility] PANEL 1 SODIUM [MOLES/VOLU ME] IN SERUM [...] 2024 03:45 PM Reporting Lab: SH[place]A MORGAN [facility] [address] [facility] [address] Performing Lab: SHIRA MORGAN [address] [address] [facility] PANEL 1 POTASSIUM [MOLES/VOLU ME] IN SERUM [...] 2024 03:45 PM Reporting Lab: SHIRA MORGAN [address] [address] Performing Lab: SH[facility] [address] [address] [facility] PANEL 1 CHLORIDE [MOLES/VOLU ME] IN SERUM [...] decrease <15 G5 Kidney failure Ordering Provider: UBCK HUNT Report Released Date/Time: Feb 06, 2024 03:45 PM Reporting Lab: [facility] [address] [address] Performing Lab: ELICIAShira [address] [address] [facility] PANEL 1 CARBON DIOXIDE, TOTAL [MOLES/VOLU ME] [...] 2024 03:45 PM Reporting Lab: SHIRA MORGAN [address] [address] Performing Lab: SHIRA MORGAN [address] [address] [facility] PANEL 1 CALCIUM [MASS/VOLUM E] IN SERUM [...] 2024 03:45 PM Reporting Lab: SHIRA MORGAN [address] [address] Performing Lab: [address] [address] [facility] PANEL 1 ANION GAP 3 IN SERUM [...] 2024 03:45 PM Reporting Lab: SHIRA MORGAN [address] [address] Performing Lab: SHIRA MORGAN [address] [address] [facility] 1 GLOMERULAR FILTRATION RATE/1.73 SQ M.PREDICTED [VOLUME [...] Feb 06, 2024 03:45 PM Reporting Lab: [place] [address] Performing Lab: [address] CBC/PLT LEUKOCYTES [#/VOLUME] IN BLOOD BY AUTOMATED COUNT 7.7 10*3/u L 5.0 - 10.0 02/05 Specimen Type: BLOOD No comment entered. Ordering Provider: BUCK HUNT Report Released Date/Time: Feb 06, 2024 10:44 AM Reporting Lab: [place] [phone] Performing Lab: [address] CBC/PLT ERYTHROCYTE S [#/VOLUME] IN BLOOD BY AUTOMATED COUNT 4.27 10*6/u L 4.6 - 6.2 02/05 L Specimen Type: BLOOD No comment entered. Ordering Provider: BUCK HUNT Report Released Date/Time: Feb 06, 2024 10:44 AM Reporting Lab: [address] [address] Performing Lab: [address] [phone] [place] [address] CBC/PLT HEMOGLOBIN [MASS/VOLUM E] IN BLOOD 12.2 g/dL 14.0 - 18.0 02/05 L Specimen Type: BLOOD No comment entered. Ordering Provider: BUCK HUNT Report Released Date/Time: Feb 06, 2024 10:44 AM Reporting Lab: [address] [address] Performing Lab: [address] [address] [facility] CBC/PLT HEMATOCRIT [VOLUME FRACTION] OF BLOOD BY AUTOMATED COUNT 37.5 42.0 - 52.0 02/05 L Specimen Type: BLOOD No comment entered. Ordering Provider: BUCK HUNT Report Released Date/Time: Feb 06, 2024 10:44 AM Reporting Lab: [address] [address] Performing Lab: [address] [address] [facility] CBC/PLT MCV [ENTITIC VOLUME] BY AUTOMATED COUNT 87.8 fL 80.0 - 94.0 02/05 Specimen Type: BLOOD No comment entered. Ordering Provider: BUCK HUNT Report Released Date/Time: Feb 06, 2024 10:44 AM Reporting Lab: [address] [address] Performing Lab: [address] [address] [facility] CBC/PLT MCH [ENTITIC MASS] BY AUTOMATED COUNT 28.6 pg 27.0 - 31.0 02/05 Specimen Type: BLOOD No comment entered. Ordering Provider: BUCK HUNT Report Released Date/Time: Feb 06, 2024 10:44 AM Reporting Lab: [address] [address] Performing Lab: [phone] [place] [address] CBC/PLT MCHC [MASS/VOLUM E] BY AUTOMATED COUNT 32.5 g/dL 32.0 - 36.0 02/05 Specimen Type: BLOOD No comment entered. Ordering Provider: BUCK HUNT Report Released Date/Time: Feb 06, 2024 10:44 AM Reporting Lab: [place] [phone] Performing Lab: [place] [address] [place] [address] CBC/PLT PLATELETS [#/VOLUME] IN BLOOD 236 10*3/u L 150 - 450 02/05 Specimen Type: BLOOD No comment entered. Ordering Provider: BUCK HUNT Report Released Date/Time: Feb 06, 2024 10:44 AM Reporting Lab: [address] [address] Performing Lab: [place] [id number] [place] [address] CBC/PLT PLATELET MEAN VOLUME [ENTITIC VOLUME] IN BLOOD 11.0 fL 9.0 - 13.1 02/05 Specimen Type: BLOOD No comment entered. Ordering Provider: BUCK HUNT Report Released Date/Time: Feb 06, 2024 10:44 AM Reporting Lab: [address] [address] Performing Lab: [place] [id number] [place] [address] CBC/PLT ERYTHROCYTE DISTRIBUTIO N WIDTH [ENTITIC VOLUME] BY AUTOMATED COUNT 14.0 11.0 - 16.0 02/05 Specimen Type: BLOOD No comment entered. Ordering Provider: BUCK HUNT Report Released Date/Time: Feb 06, 2024 10:44 AM Reporting Lab: [address] [address] Performing Lab: [address] [phone] [place] [address] CBC/PLT NUCLEATED ERYTHROCYTE S/100 ERYTHROCYTE S IN BLOOD 0.0 0.0 - 0.0 02/05 Specimen Type: BLOOD No comment entered. Ordering Provider: BUCK HUNT Report Released Date/Time: Feb 06, 2024 10:44 AM Reporting Lab: [place] M[place] [facility] [address] [facility] [address] Performing Lab: SHIRA MORGAN [address] [address] [facility] PANEL 5 CREATININE [MASS/VOLUM E] IN SERUM [...] 2024 10:44 AM Reporting Lab: [place] M[place] [id number] [facility] [address] Performing Lab: SHIRA MORGAN [address] [address] [facility] PANEL 5 UREA NITROGEN [MASS/VOLUM E] IN [...] Feb 06, 2024 10:44 AM Reporting Lab: [address] [address] Performing Lab: [address] [address] [facility] PANEL 5 GLUCOSE [MASS/VOLUM E] IN SERUM [...] 2024 10:44 AM Reporting Lab: SHIRA MORGAN [address] [address] Performing Lab: SH[place]A MORGAN [address] [address] [facility] PANEL 5 SODIUM [MOLES/VOLU ME] IN SERUM [...] 2024 10:44 AM Reporting Lab: SHIRA MORGAN [address] [address] Performing Lab: SHIRA MORGAN [address] [address] [facility] 5 POTASSIUM [MOLES/VOLU ME] IN SERUM OR [...] 2024 10:44 AM Reporting Lab: SHIRA MORGAN [address] [address] Performing Lab: SHIRA MORGAN [address] [address] [facility] PANEL 5 CHLORIDE [MOLES/VOLU ME] IN SERUM [...] 2024 10:44 AM Reporting Lab: SHIRA MORGAN [address] [address] Performing Lab: SHIRA MORGAN [address] [address] [facility] PANEL 5 CARBON DIOXIDE, TOTAL [MOLES/VOLU ME] [...] 2024 10:44 AM Reporting Lab: SHIRA MORGAN [address] [address] Performing Lab: SHIRA MORGAN [address] [address] [facility] PANEL 5 CALCIUM [MASS/VOLUM E] IN SERUM [...] 2024 10:44 AM Reporting Lab: SHIRA MORGAN [address] [address] Performing Lab: SHIRA MORGAN [address] [address] [facility] PANEL 5 PROTEIN [MASS/VOLUM E] IN SERUM [...] 2024 10:44 AM Reporting Lab: SHIRA MORGAN [address] [address] Performing Lab: SHIRA MORGAN [address] [address] [facility] PANEL 5 ALBUMIN [MASS/VOLUM E] IN SERUM [...] 2024 10:44 AM Reporting Lab: SHIRA MORGAN [address] [address] Performing Lab: SHIRA MORGAN [address] [address] [facility] PANEL 5 BILIRUBIN.T OTAL [MASS/VOLUM E] IN [...] 2024 10:44 AM Reporting Lab: SHIRA MORGAN [address] [address] Performing Lab: SHIRA MORGAN [address] [address] [facility] PANEL 5 ASPARTATE AMINOTRANSF ERASE [ENZYMATIC ACTIVITY/VO [...] 2024 10:44 AM Reporting Lab: SHIRA MORGAN [facility] [address] [facility] [address] Performing Lab: SHIRA MORGAN [facility] [address] [facility] [address] [facility] PANEL 5 ALANINE AMINOTRANSF ERASE [ENZYMATIC ACTIVITY/VO [...] 2024 10:44 AM Reporting Lab: SHIRA MORGAN [facility] [address] [facility] [address] Performing Lab: SHIRA MORGAN [facility] [address] [facility] [address] [facility] PANEL 5 ANION GAP 3 IN SERUM [...] Feb 06, 2024 10:44 AM Reporting Lab: [facility] [address] [address] Performing Lab: AAMIRRAFAELA MORGAN [address] [address] [facility] PANEL 5 ALKALINE PHOSPHATASE [ENZYMATIC ACTIVITY/VO LUME] [...] 06, 2024 10:44 AM Reporting Lab: ELICIA-Shira [facility] [address] [facility] [address] Performing Lab: ELICIA-Shira [facility] [address] [place] [address] [facility] 5 GLOMERULAR FILTRATION RATE/1.73 SQ M.PREDICTED [VOLUME [...] Feb 06, 2024 10:44 AM Reporting Lab: [address] [address] Performing Lab: [place] [id number] [place] [address] 25-OH VITAMIN D 25-HYDROXYV ITAMIN D3 [MASS/VOLUM [...] Feb 06, 2024 10:44 AM Reporting Lab: [address] [address] Performing Lab: [address] [address] [facility] B12 VITAMIN COBALAMIN (VITAMIN B12) [MASS/VOLUM E] [...] 2024 10:44 AM Reporting Lab: SHIRA MORGAN [address] [address] Performing Lab: SHIRA MORGAN [address] [address] [facility] Vital Signs Combined list of inpatient and outpatient Vital Signs from Department of Defense and Veterans Affairs, ranging from 12 months to all on record, depending upon the facility. Vital Sign Value Date Comments Source SYSTOLIC BLOOD PRESSURE 112 07/09/2024 10:20:00 [place] [facility] DIASTOLIC BLOOD PRESSURE 64 07/09/2024 10:20:00 [place] [facility] PAIN 0 07/09/2024 10:20:00 [place] [facility] TEMPERATURE 97.2 07/09/2024 10:20:00 [place] [facility] PULSE 67 07/09/2024 10:20:00 [place] [facility] RESPIRATION 16 07/09/2024 10:20:00 [place] [facility] SYSTOLIC BLOOD PRESSURE 126 04/21/2024 11:45:00 [place] [facility] DIASTOLIC BLOOD PRESSURE 64 04/21/2024 11:45:00 [place] [facility] TEMPERATURE 98.4 04/21/2024 11:45:00 [place] [facility] PULSE 60 04/21/2024 11:45:00 [place] [facility] RESPIRATION 16 04/21/2024 11:45:00 [place] [facility] SYSTOLIC BLOOD PRESSURE 140 03/04/2024 11:00:00 [place] [facility] DIASTOLIC BLOOD PRESSURE 76 03/04/2024 11:00:00 [place] [facility] WEIGHT 251 03/04/2024 11:00:00 [place] [facility] BMI 37 kg/m2 03/04/2024 11:00:00 [place] [facility] PAIN 0 03/04/2024 11:00:00 [place] [facility] TEMPERATURE 97.4 03/04/2024 11:00:00 [place] [facility] PULSE 66 03/04/2024 11:00:00 [place] [facility] RESPIRATION 14 03/04/2024 11:00:00 [place] [facility] SYSTOLIC BLOOD PRESSURE 148 02/06/2024 09:58:24 [place] [facility] DIASTOLIC BLOOD PRESSURE 79 02/06/2024 09:58:24 [place] [facility] PULSE OXIMETRY 96 02/06/2024 09:58:24 [place] [facility] WEIGHT 251 02/06/2024 09:58:24 AMANDA ZUNIGA [facility] BMI 37 kg/m2 02/06/2024 09:58:24 AMANDA ZUNIGA [facility] PAIN 0 02/06/2024 09:58:24 AMANDA ZUNIGA [facility] HEIGHT 69 02/06/2024 09:58:24 AMANDA ZUNIGA [facility] TEMPERATURE 97.2 02/06/2024 09:58:24 [place] CEJA [facility] PULSE 66 02/06/2024 09:58:24 AMANDA ZUNIGA [facility] RESPIRATION 12 02/06/2024 09:58:24 [place] CE[place] [facility] Encounters Combined list of: 1) Encounters from Department of [facility] Affairs facilities going backup to the last 18 months, not all [place] inpatient encounters are included; 2) Encounters from the Department of [facility] facilities going backup to 280 months. Location Location Details Encounter Type Encounter Number Reason For Visit Attending Provider ADM Date DC Date Status Disposition Source [facility] Outpatient Encounter [id number] 01/30 [place] [facility] Outpatient Encounter [id number] 12/15 [place] [facility] Outpatient Encounter [id number] 01/04 [place] [facility] Outpatient Encounter [id number] 01/10 [place] [facility] Outpatient Encounter [id number] 01/11 [place] [facility] Outpatient Encounter [id number] 01/12 [place] [facility] Outpatient Encounter [id number] 01/15 [place] [facility] Outpatient Encounter [id number] 01/20 [place] [facility] OFFICE O/P [place] 60 MIN [id number] Diagnos is: ICD-10- CM G35 Multipl e scleros is COMERBUCK 02/05 [place] [facility] HLTH BHV ASSMT/REAS SESSMENT [id number] Diagnos is: ICD-10- CM Z65.9 Problem related to unspeci fied psychos ocial circums CATALINA Alegria 02/05 [place] [facility] Outpatient Encounter [id number] 02/05 [place] [facility] Outpatient Encounter [id number] Diagnos is: ICD-10- CM G35 Multipl e scleros is HARSH BURTON 02/05 [place] HC PRO PHONE CALL 11-20 MIN [id number] Diagnos is: ICD-10- CM Z71.2 Person consult ing for explana tion of exam or test finding s VALARIE FELTON 02/09 [place] [facility] Outpatient Encounter [id number] 02/22 [place] [facility] Outpatient Encounter [id number] 03/04 [place] [facility] Outpatient Encounter [id number] Diagnos is: ICD-10- CM S82.401 A Unsp fractur e of shaft of right fibula, init for clos CHASE Sepulveda 03/04 [place] [facility] HHS/HOSPIC E OF RN EA 15 MIN [id number] Diagnos is: ICD-10- CM G35 Multipl e scleros is Stephen ALCOCER 03/04 [place] [facility] HLTH BHV ASSMT/REAS SESSMENT [id number] Diagnos is: ICD-10- CM Z65.9 Problem related to unspeci fied psychos ocial circums PADMINI Lundy 03/08 [place] [facility] Outpatient Encounter [id number] FRANCK WATT TTA R 03/[address] [place] [facility] [place] [id number] Diagnos is: ICD-10- CM E66.09 Other obesity due to excess calorie s KAREN SCHULZ 03/10 [place] [facility] HC PRO PHONE CALL 5-10 MIN [id number] Diagnos is: ICD-10- CM Z75.5 Holiday relief care FRANCK WATT TTA R 03/11 [place] [facility] Outpatient Encounter [id number] Diagnos is: ICD-10- CM S82.401 A Unsp fractur e of shaft of right fibula, init for CHASE Waller 03/11 [place] [facility] HHCP-SERV OF PT,EA 15 MIN [id number] Diagnos is: ICD-10- CM G35 Multipl e scleros is Dianne HUFFMAN A 03/19 [place] [facility] QNHP OL DIG ASSMT&MGMT 21+ [id number] Diagnos is: ICD-10- CM Z79.899 Other group home (curren t) drug therapy BOUCHRASATINDER Jean L 03/19 [place] [facility] Outpatient Encounter [id number] 03/23 [place] [facility] PH1 ASSMT&MGMT NQHP 5-10 [id number] Diagnos is: ICD-10- CM G35 Multipl e scleros is ALCOCERE DITH F 03/29 [place] [facility] Outpatient Encounter [id number] 03/29 [place] [facility] Outpatient Encounter [id number] 04/16 [place] [facility] HHS/HOSPIC E OF RN EA 15 MIN [id number] Diagnos is: ICD-10- CM G35 Multipl e scleros is ALCOCERE DITH F 04/21 [place] [facility] Outpatient Encounter [id number] 05/03 [place] 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 [place] [id number] Diagnos is: ICD-10- CM I10 Essenti al (primar y) hyperte nsion ALCOCERStephen F 05/25 [place] [facility] Outpatient Encounter [id number] 05/27 [place] [facility] Outpatient Encounter [id number] 06/04 [place] [facility] IV[facility] [id number] Diagnos is: ICD-10- CM Z65.9 Problem related to unspeci fied psychos ocial circums PADMINI Lundy D 06/07 [place] [facility] PH1 ASSMT&MGMT NQHP 11-20 [id number] Diagnos is: ICD-10- CM G35 Multipl e scleros is Dianne HUFFMAN 06/10 [place] [facility] Outpatient Encounter [id number] 07/07 [place] [facility] HHS/HOSPIC E OF RN EA 15 MIN [id number] Diagnos is: ICD-10- CM I10 Essenti al (primar y) hyperte nsion LEODAN,Stephen STRAUSS F 07/09 [place] Outpatient Encounter [id number] 07/19 [place] [facility] Social History Combined list of available smoking, tobacco, and other social history from Department of Defense and Veterans Affairs facilities. Social History Type Response Date Comment Sourc e Tobacco smoking status NHIS [place]-TOBACCO USER SOME DAYS 02/06/2024 [facility] [place] of [place] use [place] USE [place] 30 MIN WAKEUP 02/06/2024 [facility] Plan of Care List of future care activities from Department [facility] Affairs facilities. Additional future care activities may be listed in the Assessment and Plan section. Date/Time Care Activity Care Activity Detail Facili ty 08/19/2024 AMBULATORY - SURGERY AMBULATORY - SURGERY [facility] Advance Directives List of completed, amended, or rescinded Advance Directives on record at Department of [facility] Affairs facilities. An actual copy of the Directive is not included. Date Advance Directive Provider Source 03/08/2024 ADVANCE DIRECTIVE DISCUSSION RUBIN HILL [facility]
--- NOTE | 2024-07-27 08:00 | US_ITS ---
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 HISTORY: Thyroid mass. PROCEDURE: After informed consent was obtained and a time-out was performed, the patient was prepped and draped in usual sterile fashion over the right face. Utilizing local anesthesia and sterile technique with a 25-gauge needle, access to the lesion was obtained. 2 aspirations yielded approximately 10 mL of crystal clear fluid which was sent for cytology. The patient received no conscious sedation. The patient tolerated procedure well and left the department in good condition. IMPRESSION: Status post ultrasound guided biopsy of a right parotid mass yielding 10 mL of crystal clear fluid which was sent for cytology. Films reviewed , interpreted and dictated by Dr. Latha Rosario. Transcribed by Adilson Teresa PA-C. Reviewed, Interpreted and Dictated by Latha Rosario MD Transcribed by HENRIETTA Suarez Authenticated and [facility]
== END 2024-07-27 23:59 | disposition home or self-care (01) ==
LOC: RAD 07:35
PROVIDERS: PCP Family Medicine; Visit Provider Nurse Practitioner
DX: M79.89 Other specified soft tissue disorders (principal); K11.8 Other diseases of salivary glands
CPT/HCPCS: 10005; 88173

== ENCOUNTER 2024-08-13 09:05 | Inpatient (IN) | payer OTHER, SELFPAY ==
[2024-08-13] VITALS (7 sets, daily range): BP systolic 147–188; BP diastolic 67–85; PULSE 62–77; RESP 14–20; TEMP 36.6–36.9; O2SAT 94–98; BMI 36.9; BMI 34.9
--- NOTE | 2024-08-13 09:20 | HMH.EDGENADL ---
Discharge Plan Disposition Patient Disposition: Admitted Clinical Impressions Clinical Impression: Pneumonia, Acute hyponatremia, Generalized weakness Discharge ED Provider: Fran Perez Adult HPI General Chief complaint: Weakness Stated complaint: Gen Sickness Time Seen by Provider: 08/13/24 09:20 History of Present Illness HPI narrative: Med Chung is a 79-year-old male with a past medical history of multiple sclerosis, hypertension, hyperlipidemia, COPD, prostate cancer who presents to the emergency department for complaints of generalized weakness and overall not feeling well. Patient was treated for urinary tract infection on the and finished a 10-day course of antibiotics yesterday. He reports that he is incontinent at baseline and has had had no change to that recently. He reports some diarrhea but notes that this is more chronic and he alternates between diarrhea and constipation. He denies any fevers or cough. His at bedside states that he seemed to be wheezing some this morning. They deny any fevers. They report that over the last 5 days, he has had increasing difficulty walking. They state that he normally uses a walker but does use his rollator recently and has had increased difficulty with ambulating. Related Data Home Medications ?Medication ?Instructions ?Recorded ?Confirmed aspirin 81 mg tablet 81 mg PO DAILY 01/11/24 08/13/24 cholecalciferol (vitamin D3) 50 2,000 unit PO BID 01/11/24 08/13/24 mcg (2,000 unit) capsule (Vitamin D3) metformin 500 mg 24 hr 500 mg PO DAILY 01/11/24 08/13/24 tablet,extended release (gastric retention) silodosin 8 mg capsule 8 mg PO DAILY 01/11/24 08/13/24 methenamine hippurate 1 gram tablet 1 g PO BID 01/12/24 08/13/24 vitamins A,C,M-rihj-kljnfr 2,148 1 tab PO BID 01/12/24 08/13/24 mcg-113 mg-45 mg-17.4 mg tablet (PreserVision AREDS) bisoprolol fumarate 5 mg tablet 5 mg PO DAILY 01/20/24 08/13/24 cyanocobalamin (vitamin B-12) 1,000 mcg PO DAILY 07/19/24 08/13/24 1,000 mcg capsule atorvastatin 20 mg tablet 20 mg PO HS 08/13/24 08/13/24 gabapentin 100 mg capsule 200 mg PO QID 08/13/24 08/13/24 polyethylene glycol 3350 17 17 g PO DAILY 08/13/24 08/13/24 gram/dose oral powder (Miralax) vitamin E 400 unit tablet 400 unit PO DAILY 08/13/24 08/13/24 Previous Rx's ?Medication ?Instructions ?Recorded famotidine 20 mg tablet 20 mg PO BID #60 tabs 03/15/24 lisinopril 5 mg tablet 5 mg PO DAILY #30 tabs 08/05/24 Allergies Allergy/AdvReac Type Severity Reaction Status Date / Time No Known Allergies Allergy Verified 07/19/24 13:22 [facility] Disclaimer: The information contained in this section may have been updated after the patient was seen, as this information can be updated by other users. Medical History (Updated 08/13/24 @ 18:29 by Fran Perez MD) Diabetes mellitus, type 2 Soft tissue mass Hyponatremia Mass of parotid gland Skin lesions Decreased hearing Anemia Screening for lung cancer Tobacco use Spastic paraparesis Enlarged prostate Macular degeneration Prostate CA GERD (gastroesophageal reflux disease) Diabetes Hypertension Hyperlipidemia Multiple sclerosis Chronic pain Falls COPD (chronic obstructive pulmonary disease) Fracture of right fibula Surgical History History of knee replacement procedure of left knee History of prostate surgery History of appendectomy Family History Other Family history of COPD (chronic obstructive pulmonary disease) Family history of diabetes mellitus type II Family history of hyperlipidemia Family history of hypertension Prostate cancer Social History (Updated 08/13/24 @ 12:16 by Kari Perea RN) Smoking Status: Former smoker tobacco type: cigarettes smoking status stop date: 2020 alcohol intake: current alcohol intake frequency: holidays/special occasions only current occupational status: other Travel in the last 8 weeks?: None Have you lived/traveled outside US in past 30 days?: No Contact w/someone who lives/traveled outside US past 30 days?: No Exposure to someone with infectious disease in past 14 days?: No Do you have a fever (greater than 100.4 F or 38 C)?: No Have you tested positive for COVID-19?: No Exposed to someone with COVID-19 in past 14 days?: No Do you have a sore throat?: No Do you have a cough?: Yes Do you have any weakness?: Yes Are you experiencing any nausea/vomitting?: No Do you have any diarrhea?: No Are you experiencing any unusual bleeding?: No Do you have any muscle aches/pain?: No Do you have any abdominal pain?: No Are you experiencing loss of taste or smell?: No Other Medical History Have you received the Flu Vaccine for this season: No Have you received the Pneumonia Vaccine: Yes ROS Obtained: Yes Systems reviewed as appropriate & no additional complaints except as documented Physical Exam General General appearance: alert and in no apparent distress Head Head exam: atraumatic Eye Eye exam: Present normal appearance ENT ENT exam: Present normal external ear exam Neck Neck exam: Present full ROM Chest Chest inspection: Present symmetric chest wall rise Respiratory Respiratory exam: Present normal lung sounds bilaterally; Absent respiratory distress, wheezes or stridor Cardiovascular Cardiovascular exam: Present regular rate and normal rhythm Abdominal Exam Abdominal exam: Present soft; Absent tenderness or guarding exam: Present deferred Extremities Exam Extremities exam: Present normal inspection Back Exam Back exam: Present normal inspection Neurological Exam Neurological exam: Present alert and oriented X3 Psychiatric Psychiatric exam: Present normal affect Skin Skin exam: Present warm and dry Medical Decision Making Medical Records Screening: Per USPSTF and CDC recommendations, given the prevalence of disease in our region, it is our hospital?s policy to screen for HIV and viral Hepatitis for all patients aged 18 and over and those with ongoing risk factors. Vick Inquiry Pt receiving controlled substance: No Vital Signs: 08/13/24 09:27 08/13/24 09:37 08/13/24 11:01 Temperature 98.3 F Temperature Source Oral Pulse Rate 70 Pulse Rate [Left Radial] 70 Respiratory Rate 19 Blood Pressure 147/67 H 181/73 H Blood Pressure [Right Arm] 148/84 H Blood Pressure Mean 109 Blood Pressure Mean [Right Arm] 105 Blood Pressure Source [Right Arm] Blood Pressure Position [Right Arm] 02 Sat by Pulse Oximetry 96 97 Oxygen Delivery Method 08/13/24 11:31 08/13/24 11:53 Temperature 97.9 F Temperature Source Oral Pulse Rate Pulse Rate [Left Radial] 64 Respiratory Rate 18 Blood Pressure Blood Pressure [Right Arm] 179/75 H Blood Pressure Mean Blood Pressure Mean [Right Arm] 109 Blood Pressure Source [Right Arm] Automatic Cuff Blood Pressure Position [Right Arm] Supine 02 Sat by Pulse Oximetry 96 Oxygen Delivery Method Room Air Room Air Lab Data Lab Results 08/13/24 09:23: WBC 9.1, RBC 4.34 L, Hgb 12.2 L, Hct 36.3 L, MCV 83.6, MCH 28.1, MCHC 33.6, RDW 13.8, Plt Count 255, MPV 10.2, Neut % (Auto) 60.1, Lymph % (Auto) 17.9, [place] % (Auto) 6.8, Eos % (Auto) 14.7 H, Baso % (Auto) 0.4, Neut # (Auto) 5.4, Lymph # (Auto) 1.6, [place] # (Auto) 0.6, Eos # (Auto) 1.3 H, Baso # (Auto) 0.0, PT 13.5 H, INR 1.24 H, Sodium 122 L, Potassium 4.4, Chloride 92 L, Carbon Dioxide 26, Anion Gap 8.4, BUN 13, Creatinine 0.80, Estimated Creat Clear 98, Estimated GFR 93, Est GFR ( Amer) 113, Glucose 128 H, Calcium 8.6, Magnesium 1.8, Total Bilirubin 0.9, AST 19, ALT 18, Alkaline Phosphatase 117, Total Protein 5.9 L, Albumin 3.3 L, Globulin 2.6, Albumin/Globulin Ratio 1.3, HCV Ab WALTER w/Rflx PCR Qn Negative, HIV Ag/Ab Combo Qual Negative 08/13/24 09:23 08/13/24 09:23 Orders (Tests/Meds): ED MEDICATIONS Generic Name Dose Route Start Last Admin Trade Name Freq PRN Reason Stop Dose Admin Acetaminophen 650 mg 08/13/24 10:56 08/13/24 17:27 Acetaminophen 325mg Tab PO 09/12/24 10:55 650 mg Q4HP PRN Administration Fever or Mild Pain (1-3) Atorvastatin Calcium 20 mg 08/13/24 21:00 Atorvastatin 20mg Tablet PO 09/12/24 20:59 HS LUZ EELNA Bisoprolol Fumarate 5 mg 08/14/24 09:00 Bisoprolol 5mg Tablet PO 09/13/24 08:59 DAILY LUZ ELENA Enoxaparin Sodium 40 mg 08/14/24 09:00 Enoxaparin 40mg/0.4ml Syringe SUBCUT 09/13/24 08:59 DAILY [facility] Famotidine 20 mg 08/13/24 21:00 Famotidine 20mg Tablet PO 09/12/24 20:59 BID LUZ ELENA Gabapentin 200 mg 08/13/24 21:00 Gabapentin 100mg Capsule PO 09/12/24 20:59 TID LUZ ELENA Azithromycin 500 mg/ Sodium 250 mls @ 250 mls/hr 08/13/24 10:45 08/13/24 11:45 Chloride IV 08/23/24 10:44 250 mls/hr Q24H LUZ ELENA Administration Lisinopril 5 mg 08/14/24 09:00 Lisinopril 5mg Tablet PO 09/13/24 08:59 DAILY LUZ ELENA Non-Formulary Medication 8 mg 08/14/24 09:00 Silodosin PO 09/13/24 08:59 DAILY LUZ ELENA Non-Formulary Medication 500 mg 08/14/24 09:00 Metformin PO 09/13/24 08:59 DAILY [facility] Non-Formulary Medication 81 mg 08/14/24 09:00 Aspirin PO 09/13/24 08:59 DAILY [facility] Non-Formulary Medication 1 gm 08/13/24 21:00 Methenamine Hippurate PO 09/12/24 20:59 BID [facility] Ondansetron HCl 4 mg 08/13/24 10:56 Ondansetron 4mg/2ml Vial IV 09/12/24 10:55 Q8HP PRN Nausea Polyethylene Glycol 17 gm 08/14/24 09:00 Polyethylene Glycol 3350 238gm Powder PO 09/13/24 08:59 DAILY LUZ ELENA Discontinued Medications Generic Name Dose Route Start Last Admin Trade Name Freq PRN Reason Stop Dose Admin Sodium Chloride 1,000 mls @ 999 mls/hr 08/13/24 10:03 08/13/24 10:07 Sod Chlor 0.9% 1000ml Bag IV 08/13/24 11:03 999 mls/hr .Q1H1M ONE Administration Cefepime HCl 2 gm/ Sodium 100 mls @ 200 mls/hr 08/13/24 10:44 08/13/24 14:57 Chloride IV 08/13/24 11:13 200 mls/hr ONCE ONE Administration ORDERS Category Date Time Status XR chest portable Stat Exams 08/13/24 10:07 Completed CBC w/Auto Diff [Complete Blood Count Auto Diff] Stat Lab 08/13/24 09:23 Completed CMP [Comprehensive Metabolic Panel] Stat Lab 08/13/24 09:23 Completed Complete Blood Count Auto Diff AMLAB Lab 08/14/24 06:00 Ordered Comprehensive Metabolic Panel [facility] Lab 08/14/24 06:00 Ordered Comprehensive Metabolic Panel [facility] Lab 08/15/24 06:00 Ordered Comprehensive Metabolic Panel [facility] Lab 08/16/24 06:00 Ordered Comprehensive Metabolic Panel [facility] Lab 08/17/24 06:00 Ordered Comprehensive Metabolic Panel [facility] Lab 08/18/24 06:00 Ordered HIV Combo Stat Lab 08/13/24 09:23 Completed Hepatitis C Ab Qual. W/ RFX Stat Lab 08/13/24 09:23 Completed Magnesium [facility] Lab 08/14/24 06:00 Ordered Magnesium [facility] Lab 08/15/24 06:00 Ordered Magnesium [facility] Lab 08/16/24 06:00 Ordered Magnesium [facility] Lab 08/17/24 06:00 Ordered Magnesium AML[facility] Lab 08/18/24 06:00 Ordered Magnesium Stat Lab 08/13/24 09:23 Completed PT INR [Prothrombin Time INR] Stat Lab 08/13/24 09:23 Completed UA [Urinalysis and Microscopic] Stat Lab 08/13/24 11:47 Completed Blood Culture Stat Micro 08/13/24 11:03 Received Urine Culture Stat Micro 08/13/24 11:47 Received Medical Decision Narrative: Med Chung is a 79-year-old male with a past medical history of multiple sclerosis, hypertension, hyperlipidemia, COPD, prostate cancer who presents to the emergency department for complaints of generalized weakness and overall not feeling well. Patient was treated for urinary tract infection on the and finished a 10-day course of antibiotics yesterday. He reports that he is incontinent at baseline and has had had no change to that recently. He reports some diarrhea but notes that this is more chronic and he alternates between diarrhea and constipation. He denies any fevers or cough. His at bedside states that he seemed to be wheezing some this morning. They deny any fevers. They report that over the last 5 days, he has had increasing difficulty walking and intermittent forgetfulness. They state that he normally uses a walker but does use his rollator recently and has had increased difficulty with ambulating, which was their primary reason for coming to the ED. on arrival, patient borderline hypertensive, heart rate within normal limits, afebrile, breathing comfortably on room air with oxygen saturation within normal limits. Physical exam, stated above, revealed an overall well-appearing male in no acute distress. Cardiopulmonary exam is unremarkable with no wheezing, rales or rhonchi. Abdomen is soft, nontender nondistended. He is generally weak but no focal neurological deficits. He is GCS 15 at this time. Differential diagnosis includes, but is not limited to: Continued urinary tract infection, sepsis, pneumonia, electrolyte derangement, metabolic derangement, dehydration, functional decline, MS flare, among others. Workup in the emergency department included: Chest x-ray, CBC, CMP, urinalysis, magnesium level, PT/INR. Chest x-ray was interpreted by me personally and concerning for Airspace opacities in the bilateral bases likely representing pneumonia. Will start patient on Rocephin and azithromycin for community-acquired pneumonia coverage. Urinalysis without evidence of infection. Patient is hyponatremic with a sodium of 122 but electrolytes otherwise unremarkable nonactionable. No leukocytosis. No clinically significant anemia. Patient was evaluated by the physical therapy and Occupational Therapy, who noted that patient was max assist with him just to get out of the bed. Given this, the noted that he would likely need placement. I then discussed the patient's case with the hospitalist, Dr. Sigala, who graciously agreed to accept the patient to the hospital medicine service for further management. Critical Care Critical Care Time Critical Care Time: No
--- NOTE | 2024-08-13 09:38 | HMH.ITSTN ---
went to get pt for xray and they had just put him on bed rodriguez
[2024-08-13 09:39] LABS: Basophils % 0.4 % (0.1-2.0); Eosinophils # 1.3 Kmm3 (0.0-0.4); Eosinophils % 14.7 % (0.1-12.0); Hematocrit 36.3 % (42.0-52.0); Hemoglobin 12.2 g/dL (14.1-18.0); Immature Granulocytes # 0.01 10^3uL; Immature Granulocytes % 0.1 %; Lymphocytes # 1.6 K/mm3 (0.7-4.5); Lymphocytes % 17.9 % (10-50); Mean Corpuscular HGB Conc 33.6 g/dL (31.8-35.4); Mean Corpuscular Hemoglobin 28.1 pg (27.0-31.2); Mean Corpuscular Volume 83.6 fl (80-94); Mean Platelet Volume 10.2 fl (7.4-10.4); Monocytes # 0.6 K/mm3 (0.1-1.0); Monocytes % 6.8 % (1.7-9.3); Neutrophils # 5.4 K/mm3 (1.8-7.8); Neutrophils % 60.1 % (37.0-80.0); Nucleated Red Blood Cells # 0 10^3/uL; Nucleated Red Blood Cells % 0 %; Platelet Count 255 K/mm3 (142-424); Red Blood Count 4.34 M/mm3 (4.60-6.20); Red Cell Distribution Width 13.8 % (11.5-17.5); Red Cell Distribution Width-SD 42.5 fL; White Blood Count 9.1 K/mm3 (4.8-10.8)
--- NOTE | 2024-08-13 09:39 | PC.NURSE ---
rehab called and notified of orders placed
[2024-08-13 09:45] LABS: Alanine Aminotransferase 18 U/L (12-78); Albumin Level 3.3 g/dl (3.5-5.0); Albumin/Globulin Ratio 1.3 (1.1-1.8); Alkaline Phosphatase 117 U/L (38-126); Anion Gap 8.4 mEq/L (5-15); Aspartate Amino Transferase 19 U/L (17-59); Bilirubin,Total 0.9 mg/dl (0.2-1.3); Blood Urea Nitrogen 13 mg/dl (9-20); Calcium 8.6 mg/dl (8.4-10.2); Carbon Dioxide 26 mmol/L (22.0-30.0); Chloride 92 mmol/L (98-107); Creatinine Clearance Estimated 98 mL/min (50-200); Estimated Glomerular Filt Rate 93 ml/min (>60); GFR (African American) 113 ML/MIN (>60); Globulin 2.6 g/dL (1.3-3.2); Glucose 128 mg/dl (74-100); Magnesium 1.8 mg/dl (1.6-2.3); Potassium 4.4 mmoL/L (3.5-5.1); Sodium 122 mmol/L (136-145); Total Protein,Serum 5.9 g/dl (6.3-8.2)
--- OUTSIDE RECORDS SUMMARY | 2024-08-13 09:50 | XMS_ITS | Continuity of Care Document ---
Author Name [facility] Organization [facility] Care Team Providers Care Refrigerator Repair Technician Name Role Phone [facility] Unavailable Unavailable Problems Combined list of problems from Department of [facility] ([place], [place]) and [facility] facilities. It does not include entries that were removed or entered in error. Problem Status Onset Date Problem Type Date of Resolution Comments Source Age related macular degeneration Active Condition [facility] Carcinoma of prostate Active Condition [facility] Closed fracture of shaft of right fibula Active Condition [facility] Constipation Active Condition [facility] Essential hypertension Active Condition [facility] Gastroesophageal reflux disease without esophagitis Active Condition [facility] Hyperlipidemia Active Condition [place] [facility] Incontinence Active Condition [facility] Multiple sclerosis Active Condition [facility] Pain of right knee joint Active Condition [facility] Type 2 diabetes mellitus Active Condition [facility] Diagnosis: ICD-10-CM Z65.9 Problem related to unspecified psychosocial circumstances Active Diagnosis [facility] Diagnosis: ICD-10-CM G35 Multiple sclerosis Active Diagnosis [facility] Diagnosis: ICD-10-CM Z79.899 Other intermediate (current) drug therapy Active Diagnosis [facility] Diagnosis: ICD-10-CM I10 Essential (primary) hypertension Active Diagnosis [facility] Diagnosis: ICD-10-CM K21.9 Gastro-esophageal reflux disease without esophagitis Active Diagnosis [facility] Diagnosis: ICD-10-CM M25.561 Pain in right knee Active Diagnosis [facility] Diagnosis: ICD-10-CM S82.401A Unsp fracture of shaft of right fibula, init for clos fx Active Diagnosis [facility] Diagnosis: ICD-10-CM Z75.5 Holiday relief care Active Diagnosis [facility] Diagnosis: ICD-10-CM E66.09 Other obesity due to excess calories Active Diagnosis [facility] Diagnosis: ICD-10-CM Z71.2 Person consulting for explanation of exam or test findings Active Diagnosis [place] [facility] Medications Combined list of outpatient medications from [...] DAILY ORAL ACTIVE COMERBUCK 2023 [place] [facility] ATORVASTATI N [place] 20MG TAB TAKE ONE TABLET BY MOUTH AT BEDTIME ORAL ACTIVE COMERBUCK 2023 [place] [facility] BISOPROLOL FUMARATE 5MG TAB TAKE ONE TABLET BY MOUTH DAILY ORAL ACTIVE COMERBUCK 2023 [place] [facility] CHOLECALCIF THAIS 10MCG (400UNIT) TAB TAKE ONE TABLET BY MOUTH DAILY ORAL ACTIVE COMERBUCK 2023 [place] [facility] CHOLECALCIF THAIS 50MCG (2,000UNIT) TAB TAKE ONE TABLET BY MOUTH TWICE A DAY ORAL ACTIVE COMER,BUCK Campos 2023 [place] [facility] CLOTRIMAZOL E 1% CREAM,TOP APPLY SMALL AMOUNT TO AFFECTED AREA THREE TIMES A DAY NEEDED FOR FUNGAL INFECTIO N APPLY TO GROIN RASH TOPICA Deshaun ACTIVE 05/19/2025 [id number] 5 FLO HENDERSON 2024 60 [place] DICLOFENAC NA 1% GEL,TOP APPLY 2 GRAM STRIP TO AFFECTED AREA EVERY 6 HOURS NEEDED FOR PAIN APPLY TO RIGHT KNEE TOPICA L ACTIVE 05/19/2025 [id number] 5 FLO HENDERSON 2024 200 [place] FAMOTIDINE 20MG TAB TAKE ONE TABLET BY MOUTH TWICE A DAY NEEDED ORAL ACTIVE COMERBUCK 2023 [place] [facility] GABAPENTIN TAB TAKE 100MG BY MOUTH FOUR TIMES A DAY ORAL ACTIVE COMERBUCK 2023 [place] [facility] HYDROPHILIC (EQV EUCERIN) CREAM,TOP APPLY SMALL AMOUNT TO AFFECTED AREA NEEDED FOR DRY SKIN TOPICA L ACTIVE 05/19/2025 [id number] 5 FLO HENDERSON 2024 454 [place] IPRATROPIUM BR 0.03% SOLN,SPRAY, NASAL SPRAY 1 SPRAY IN NOSE WITH MEALS FOR NASAL ALLERGIE S NASAL ACTIVE 05/19/2025 [id number] 5 FLO HENDERSON 2024 30 [place] LEUPROLIDE ACETATE (ELIGARD) 45MG (6 MONTH) INJ,SUSP,LA 45MG (1 DOSE) UNDER THE SKIN ONCE SUBCUT ANEOUS ACTIVE COMER,BUCK Campos 2023 [place] [facility] MELOXICAM 7.5MG TAB TAKE ONE TABLET BY MOUTH DAILY FOR PAIN OR INFLAMMA TION -TAKE WITH FOOD OR MILK ORAL DISCONT INUED BY SOPHY Campos 05/01/2025 [id number] 5 FLO HENDERSON 2024 90 [place] METFORMIN HCL 500MG 24HR TAB,SA TAKE ONE TABLET BY MOUTH DAILY ORAL ACTIVE COMERBUCK 2023 [place] [facility] METHENAMINE HIPPURATE 1GM TAB TAKE ONE TABLET BY MOUTH TWICE A DAY ORAL ACTIVE COMERBUCK 2023 [place] [facility] MULTIVITAMI N/OPTH AREDS SINGLE STRENGTH TAB TAKE 2 CAPSULES BY MOUTH DAILY ORAL ACTIVE COMERBUCK 2023 [place] [facility] OCRELIZUMAB INJ,SOLN INJECT INTO THE VEIN DIRECTED Q 6 MONTHS INTRAV ENOUS ACTIVE COMERUBCK 2023 [place] [facility] POLYETHYLEN E GLYCOL 3350 PWDR,ORAL MIX 17 GRAMS (ONE CAPFUL FILLED TO LINE) IN LIQUID AND TAKE BY MOUTH DAILY ORAL ACTIVE COMERBUCK 2023 [place] [facility] PSYLLIUM CAP,ORAL TAKE 1 CAPSULE BY MOUTH DAILY ORAL ACTIVE COMER,BUCK Campos 2023 [place] [facility] SILODOSIN 8MG CAP,ORAL TAKE 1 CAPSULE BY MOUTH DAILY ORAL ACTIVE COMER,BUCK Andres 2023 [place] [facility] Immunizations Combined list of available immunizations from the Department of Defense and Veterans Affairs facilities. Immunization Series Date Given Administered By Site Reaction Lot Number CVX Code Drug Sinter Press Operator Status Comments Source INFLUENZA, UNSPECIFIED FORMULATION 2023 88 complet ed HISTORICA L INFORMATI ON - FROM PATIENT'S WRITTEN RECORD, [place] [facility] COVID-19 (MODERNA), MRNA, LNP-S, PF, 50 MCG/0.5 ML (AGES 12+ YEARS) 6 2022 312 complet ed HISTORICA L INFORMATI ON - FROM OTHER REGISTRY, [place] [facility] INFLUENZA, HIGH-DOSE, QUADRIVALENT, PF 1 2022 197 complet ed HISTORICA L INFORMATI ON - FROM OTHER REGISTRY, [place] [facility] COVID-19 (PFIZER), MRNA, LNP-S, BIVALENT, PF, 30 MCG/0.3 ML DOSE 5 2021 300 complet ed HISTORICA L INFORMATI ON - FROM OTHER REGISTRY, [place] [facility] COVID-19 (PFIZER), MRNA, LNP-S, PF, 30 MCG/0.3 ML DOSE, HERMAN-SUCROSE (AGES 12+ YEARS) 4 2021 217 complet ed HISTORICA L INFORMATI ON - FROM OTHER REGISTRY, [place] [facility] COVID-19 (PFIZER), MRNA, LNP-S, PF, 30 MCG/0.3 ML DOSE 3 2020 208 complet ed HISTORICA L INFORMATI ON - FROM OTHER REGISTRY, [place] [facility] COVID-19 (Trivop), MRNA, LNP-S, PF, 30 MCG/0.3 ML DOSE 2 2020 208 complet ed HISTORICA L INFORMATI ON - FROM OTHER REGISTRY, [place] [facility] COVID-19 (Trivop), MRNA, LNP-S, PF, 30 MCG/0.3 ML DOSE 1 2020 208 complet ed HISTORICA L INFORMATI ON - FROM OTHER REGISTRY, [place] [facility] ZOSTER RECOMBINANT 1 2018 187 complet ed HISTORICA L INFORMATI ON - FROM OTHER REGISTRY, [place] [facility] HEPB-CPG 2 2018 189 complet ed HISTORICA L INFORMATI ON - FROM OTHER REGISTRY, [place] [facility] HEPB-CPG 1 2018 189 complet ed HISTORICA L INFORMATI ON - FROM OTHER REGISTRY, [place] [facility] HEP A, ADULT 2 2018 52 complet ed HISTORICA L INFORMATI ON - FROM OTHER REGISTRY, [place] [facility] HEP A, ADULT 1 2017 52 complet ed HISTORICA L INFORMATI ON - FROM OTHER REGISTRY, [place] [facility] Results Combined list of recent chemistry, [...] 22, 2024 08:13 AM Reporting Lab: SHIRA [address] [address] Performing Lab: SHIRA [address] [address] [facility] IRON/TIBC IRON BINDING CAPACITY [MASS/VOLUM E] IN SERUM OR PLASMA 233 mg/dL 250 - 425 05/25 L Specimen Type: PLASMA No comment entered. Ordering Provider: EZE HENDERSON Report Released Date/Time: Apr 22, 2024 08:13 AM Reporting Lab: [facility] [address] [address] Performing Lab: [facility] [address] [address] [facility] IRON/TIBC IRON SATURATION [MOLAR FRACTION] IN SERUM OR PLASMA 23 20 - 50 05/25 Specimen Type: PLASMA No comment entered. Ordering Provider: EZE HENDERSON Report Released Date/Time: Apr 22, 2024 08:13 AM Reporting Lab: [place] [address] Performing Lab: [address] FERRITIN FERRITIN [MASS/VOLUM E] IN SERUM OR PLASMA 141.1 ng/mL 21.8 - 274.7 05/25 Specimen Type: PLASMA No comment entered. Ordering Provider: EZE HENDERSON Report Released Date/Time: Apr 22, 2024 08:13 AM Reporting Lab: [place] [address] Performing Lab: [address] CBC/PLT LEUKOCYTES [#/VOLUME] IN BLOOD BY AUTOMATED COUNT 9.6 10*3/u L 5.0 - 10.0 05/25 Specimen Type: BLOOD No comment entered. Ordering Provider: EZE HENDERSON Report Released Date/Time: Apr 22, 2024 08:13 AM Reporting Lab: [place] [address] Performing Lab: [address] CBC/PLT ERYTHROCYTE S [#/VOLUME] IN BLOOD BY AUTOMATED COUNT 4.00 10*6/u L 4.6 - 6.2 05/25 L Specimen Type: BLOOD No comment entered. Ordering Provider: EZE HENDERSON Report Released Date/Time: Apr 22, 2024 08:13 AM Reporting Lab: [place] [address] Performing Lab: [address] CBC/PLT HEMOGLOBIN [MASS/VOLUM E] IN BLOOD 11.3 g/dL 14.0 - 18.0 05/25 L Specimen Type: BLOOD No comment entered. Ordering Provider: EZE HENDERSON Report Released Date/Time: Apr 22, 2024 08:13 AM Reporting Lab: [address] [address] Performing Lab: [address] [address] [facility] CBC/PLT HEMATOCRIT [VOLUME FRACTION] OF BLOOD BY AUTOMATED COUNT 35.0 42.0 - 52.0 05/25 L Specimen Type: BLOOD No comment entered. Ordering Provider: EZE HENDERSON Report Released Date/Time: Apr 22, 2024 08:13 AM Reporting Lab: [address] [address] Performing Lab: [address] [address] [facility] CBC/PLT MCV [ENTITIC VOLUME] BY AUTOMATED COUNT 87.5 fL 80.0 - 94.0 05/25 Specimen Type: BLOOD No comment entered. Ordering Provider: EZE HENDERSON Report Released Date/Time: Apr 22, 2024 08:13 AM Reporting Lab: [address] [address] Performing Lab: [address] [address] [facility] CBC/PLT MCH [ENTITIC MASS] BY AUTOMATED COUNT 28.3 pg 27.0 - 31.0 05/25 Specimen Type: BLOOD No comment entered. Ordering Provider: EZE HENDERSON Report Released Date/Time: Apr 22, 2024 08:13 AM Reporting Lab: [address] [address] Performing Lab: [address] [address] [facility] CBC/PLT MCHC [MASS/VOLUM E] BY AUTOMATED COUNT 32.3 g/dL 32.0 - 36.0 05/25 Specimen Type: BLOOD No comment entered. Ordering Provider: EZE HENDERSON Report Released Date/Time: Apr 22, 2024 08:13 AM Reporting Lab: [address] [address] Performing Lab: [address] [address] [facility] CBC/PLT PLATELETS [#/VOLUME] IN BLOOD 232 10*3/u L 150 - 450 05/25 Specimen Type: BLOOD No comment entered. Ordering Provider: EZE HENDERSON Report Released Date/Time: Apr 22, 2024 08:13 AM Reporting Lab: [address] [address] Performing Lab: [place] [phone] [place] [address] CBC/PLT PLATELET MEAN VOLUME [ENTITIC VOLUME] IN BLOOD 11.0 fL 9.0 - 13.1 05/25 Specimen Type: BLOOD No comment entered. Ordering Provider: EZE HENDERSON Report Released Date/Time: Apr 22, 2024 08:13 AM Reporting Lab: [place] [phone] Performing Lab: [place] [phone] [place] [address] CBC/PLT ERYTHROCYTE DISTRIBUTIO N WIDTH [ENTITIC VOLUME] BY AUTOMATED COUNT 15.4 11.0 - 16.0 05/25 Specimen Type: BLOOD No comment entered. Ordering Provider: EZE HENDERSON Report Released Date/Time: Apr 22, 2024 08:13 AM Reporting Lab: [place] [phone] Performing Lab: [place] [phone] [place] [address] CBC/PLT NUCLEATED ERYTHROCYTE S/100 ERYTHROCYTE S IN BLOOD 0.0 0.0 - 0.0 05/25 Specimen Type: BLOOD No comment entered. Ordering Provider: EZE HENDERSON Report Released Date/Time: Apr 22, 2024 08:13 AM Reporting Lab: [address] [address] Performing Lab: [address] [address] [facility] DRUG SCREEN EXPANDED IN-HOUSE TETRAHYDROC ANNABINOL [...] 06, 2024 03:45 PM Reporting Lab: [address] [address] Performing Lab: [place] [phone] [place] [address] DRUG SCREEN EXPANDED IN-HOUSE AMPHETAMINE S [PRESENCE] [...] 06, 2024 03:45 PM Reporting Lab: [address] [address] Performing Lab: [address] [address] [facility] DRUG SCREEN EXPANDED IN-HOUSE BARBITURATE S [...] 06, 2024 03:45 PM Reporting Lab: [address] [address] Performing Lab: [place] [phone] [place] [address] DRUG SCREEN EXPANDED IN-HOUSE BENZODIAZEP JUAN FRANCISCO [...] 06, 2024 03:45 PM Reporting Lab: [address] [address] Performing Lab: [place] [phone] [place] [address] DRUG SCREEN EXPANDED IN-HOUSE BENZOYLECGO NINE [PRESENCE] [...] Feb 06, 2024 03:45 PM Reporting Lab: [place] [phone] Performing Lab: [place] [phone] [facility] DRUG SCREEN EXPANDED IN-HOUSE OPIATES [PRESENCE] [...] 06, 2024 03:45 PM Reporting Lab: [address] [address] Performing Lab: [place] [phone] [facility] DRUG SCREEN EXPANDED IN-HOUSE METHADONE [PRESENCE] [...] 06, 2024 03:45 PM Reporting Lab: [address] [address] Performing Lab: [address] [address] [facility] DRUG SCREEN EXPANDED IN-HOUSE OXYCODONE [PRESENCE] [...] 06, 2024 03:45 PM Reporting Lab: [address] [address] Performing Lab: [address] [address] [facility] DRUG SCREEN EXPANDED IN-HOUSE BUPRENORPHI NE+NORBUPRE [...] 06, 2024 03:45 PM Reporting Lab: [address] [address] Performing Lab: [place] [phone] [facility] DRUG SCREEN EXPANDED IN-HOUSE FENTANYL SCREEN [...] 06, 2024 03:45 PM Reporting Lab: [address] [address] Performing Lab: [address] [address] [facility] MICROALBU MIN/CREAT RATIO CREATININE [MASS/VOLUM E] IN URINE 102.7 mg/dL 02/16 Specimen Type: URINE Comment: Unable to calculate ratio due to low Microalbumi n result. Ordering Provider: BUCK HUNT Report Released Date/Time: Feb 06, 2024 03:45 PM Reporting Lab: [place] [phone] Performing Lab: [place] [phone] [facility] MICROALBU MIN/CREAT RATIO MICROALBUMI N [MASS/VOLUM E] IN URINE <5.0mg /L 0.0 - 30.0 02/16 Specimen Type: URINE Comment: Unable to calculate ratio due to low Microalbumi n result. Ordering Provider: BUCK HUNT Report Released Date/Time: Feb 06, 2024 03:45 PM Reporting Lab: [place] [phone] Performing Lab: [place] [phone] [facility] MICROALBU MIN/CREAT RATIO MICROALBUMI N/CREATININ E [MASS RATIO] IN URINE commen tug/mg {creat } 02/16 Specimen Type: URINE Comment: Unable to calculate ratio due to low Microalbumi n result. Ordering Provider: BUCK HUNT Report Released Date/Time: Feb 06, 2024 03:45 PM Reporting Lab: [address] [address] Performing Lab: [place] [phone] [facility] PANEL 1 CREATININE [MASS/VOLUM E] IN [...] 2024 03:45 PM Reporting Lab: SHIRA [place]OR[place] [address] [address] Performing Lab: SHIRA MORGAN [address] [address] [facility] PANEL 1 UREA NITROGEN [MASS/VOLUM E] [...] 2024 03:45 PM Reporting Lab: SHIRA MORGAN [address] [address] Performing Lab: SHIRA MORGAN [address] [address] [facility] PANEL 1 GLUCOSE [MASS/VOLUM E] IN [...] 2024 03:45 PM Reporting Lab: [facility] [address] [facility] [address] Performing Lab: SH[facility]A [facility] [address] [facility] [address] [facility] PANEL 1 SODIUM [MOLES/VOLU ME] IN [...] 2024 03:45 PM Reporting Lab: [facility] [address] [facility] [address] Performing Lab: SHIRA MORGAN [address] [address] [facility] PANEL 1 POTASSIUM [MOLES/VOLU ME] IN [...] 2024 03:45 PM Reporting Lab: SHIRA MORGAN [address] [address] Performing Lab: SHIRA [address] [address] [facility] PANEL 1 CHLORIDE [MOLES/VOLU ME] IN [...] Feb 06, 2024 03:45 PM Reporting [facility] [address] [address] Performing Lab: ELICIAShira [address] [address] [facility] PANEL 1 CARBON DIOXIDE, TOTAL [MOLES/VOLU [...] 2024 03:45 PM Reporting Lab: SHIRA MORGAN [address] [address] Performing Lab: SHIRA MORGAN [address] [address] [facility] PANEL 1 CALCIUM [MASS/VOLUM E] IN [...] 2024 03:45 PM Reporting Lab: SHIRA MORGAN [address] [address] Performing Lab: AAMIR[address] [address] [facility] PANEL 1 ANION GAP 3 IN [...] 2024 03:45 PM Reporting Lab: SHIRA MORGAN [address] [address] Performing Lab: SHIRA MORGAN [address] [address] [facility] 1 GLOMERULAR FILTRATION RATE/1.73 SQ M.PREDICTED [...] Feb 06, 2024 03:45 PM Reporting Lab: [place] [address] Performing Lab: [address] CBC/PLT LEUKOCYTES [#/VOLUME] IN BLOOD BY AUTOMATED COUNT 7.7 10*3/u L 5.0 - 10.0 02/05 Specimen Type: BLOOD No comment entered. Ordering Provider: BUCK HUNT Report Released Date/Time: Feb 06, 2024 10:44 AM Reporting Lab: [place] [phone] Performing Lab: [address] CBC/PLT ERYTHROCYTE S [#/VOLUME] IN BLOOD BY AUTOMATED COUNT 4.27 10*6/u L 4.6 - 6.2 02/05 L Specimen Type: BLOOD No comment entered. Ordering Provider: BUCK HUNT Report Released Date/Time: Feb 06, 2024 10:44 AM Reporting Lab: [address] [address] Performing Lab: [address] [phone] [place] [address] CBC/PLT HEMOGLOBIN [MASS/VOLUM E] IN BLOOD 12.2 g/dL 14.0 - 18.0 02/05 L Specimen Type: BLOOD No comment entered. Ordering Provider: BUCK HUNT Report Released Date/Time: Feb 06, 2024 10:44 AM Reporting Lab: [address] [address] Performing Lab: [address] [address] [facility] CBC/PLT HEMATOCRIT [VOLUME FRACTION] OF BLOOD BY AUTOMATED COUNT 37.5 42.0 - 52.0 02/05 L Specimen Type: BLOOD No comment entered. Ordering Provider: BUCK UHNT Report Released Date/Time: Feb 06, 2024 10:44 AM Reporting Lab: [address] [address] Performing Lab: [address] [address] [facility] CBC/PLT MCV [ENTITIC VOLUME] BY AUTOMATED COUNT 87.8 fL 80.0 - 94.0 02/05 Specimen Type: BLOOD No comment entered. Ordering Provider: BUCK HUNT Report Released Date/Time: Feb 06, 2024 10:44 AM Reporting Lab: [address] [address] Performing Lab: [address] [address] [facility] CBC/PLT MCH [ENTITIC MASS] BY AUTOMATED COUNT 28.6 pg 27.0 - 31.0 02/05 Specimen Type: BLOOD No comment entered. Ordering Provider: BUCK HUNT Report Released Date/Time: Feb 06, 2024 10:44 AM Reporting Lab: [address] [address] Performing Lab: [address] [phone] [place] [address] CBC/PLT MCHC [MASS/VOLUM E] BY AUTOMATED COUNT 32.5 g/dL 32.0 - 36.0 02/05 Specimen Type: BLOOD No comment entered. Ordering Provider: BUCK HUNT Report Released Date/Time: Feb 06, 2024 10:44 AM Reporting Lab: [place] [phone] Performing Lab: [place] [address] [place] [address] CBC/PLT PLATELETS [#/VOLUME] IN BLOOD 236 10*3/u L 150 - 450 02/05 Specimen Type: BLOOD No comment entered. Ordering Provider: BUCK HUNT Report Released Date/Time: Feb 06, 2024 10:44 AM Reporting Lab: [address] [address] Performing Lab: [place] [phone] [place] [address] CBC/PLT PLATELET MEAN VOLUME [ENTITIC VOLUME] IN BLOOD 11.0 fL 9.0 - 13.1 02/05 Specimen Type: BLOOD No comment entered. Ordering Provider: BUCK HUNT Report Released Date/Time: Feb 06, 2024 10:44 AM Reporting Lab: [address] [address] Performing Lab: [place] [phone] [place] [address] CBC/PLT ERYTHROCYTE DISTRIBUTIO N WIDTH [ENTITIC VOLUME] BY AUTOMATED COUNT 14.0 11.0 - 16.0 02/05 Specimen Type: BLOOD No comment entered. Ordering Provider: BUCK HUNT Report Released Date/Time: Feb 06, 2024 10:44 AM Reporting Lab: [address] [address] Performing Lab: [address] [place] [address] CBC/PLT NUCLEATED ERYTHROCYTE S/100 ERYTHROCYTE S IN BLOOD 0.0 0.0 - 0.0 02/05 Specimen Type: BLOOD No comment entered. Ordering Provider: BUCK HUNT Report Released Date/Time: Feb 06, 2024 10:44 AM Reporting Lab: [facility] [address] [facility] [address] Performing Lab: SHIRA MORGAN [address] [address] [facility] PANEL 5 CREATININE [MASS/VOLUM E] IN [...] 2024 10:44 AM Reporting Lab: [place] [id number] [facility] [address] Performing Lab: SHIRA MORGAN [address] [address] [facility] PANEL 5 UREA NITROGEN [MASS/VOLUM E] [...] 06, 2024 10:44 AM Reporting Lab: [address] [address] Performing Lab: [address] [address] [facility] PANEL 5 GLUCOSE [MASS/VOLUM E] IN [...] 2024 10:44 AM Reporting Lab: SHIRA MORGAN [address] [address] Performing Lab: SHIRA MORGAN [address] [address] [facility] PANEL 5 SODIUM [MOLES/VOLU ME] IN [...] 2024 10:44 AM Reporting Lab: SHIRA MORGAN [address] [address] Performing Lab: SHIRA MORGAN [address] [address] [facility] 5 POTASSIUM [MOLES/VOLU ME] IN SERUM [...] 2024 10:44 AM Reporting Lab: SHIRA MORGAN [address] [address] Performing Lab: SHIRA MORGAN [address] [address] [facility] PANEL 5 CHLORIDE [MOLES/VOLU ME] IN [...] 2024 10:44 AM Reporting Lab: SHIRA MORGAN [address] [address] Performing Lab: SHIRA MORGAN [address] [address] [facility] PANEL 5 CARBON DIOXIDE, TOTAL [MOLES/VOLU [...] 2024 10:44 AM Reporting Lab: SHIRA MORGAN [address] [address] Performing Lab: SHIRA MORGAN [address] [address] [facility] PANEL 5 CALCIUM [MASS/VOLUM E] IN [...] 2024 10:44 AM Reporting Lab: SHIRA MORGAN [address] [address] Performing Lab: SHIRA MORGAN [address] [address] [facility] PANEL 5 PROTEIN [MASS/VOLUM E] IN [...] 2024 10:44 AM Reporting Lab: SHIRA MORGAN [address] [address] Performing Lab: SHIRA MORGAN [address] [address] [facility] PANEL 5 ALBUMIN [MASS/VOLUM E] IN [...] 2024 10:44 AM Reporting Lab: SHIRA MORGAN [address] [address] Performing Lab: SHIRA MORGAN [address] [address] [facility] PANEL 5 BILIRUBIN.T OTAL [MASS/VOLUM E] [...] 2024 10:44 AM Reporting Lab: SHIRA MORGAN [address] [address] Performing Lab: SHIRA MORGAN [address] [address] [facility] PANEL 5 ASPARTATE AMINOTRANSF ERASE [ENZYMATIC [...] 2024 10:44 AM Reporting Lab: SHIRA MORGAN [facility] [address] [facility] [address] Performing Lab: SHIRA MORGAN [facility] [address] [facility] [address] [facility] PANEL 5 ALANINE AMINOTRANSF ERASE [ENZYMATIC [...] 2024 10:44 AM Reporting Lab: SHIRA MORGAN [facility] [address] [facility] [address] Performing Lab: SHIRA MORGAN [facility] [address] [facility] [address] [facility] PANEL 5 ANION GAP 3 IN [...] 06, 2024 10:44 AM Reporting [facility] [address] [address] Performing Lab: AAMIRRAFAELA MORGAN [address] [address] [facility] PANEL 5 ALKALINE PHOSPHATASE [ENZYMATIC ACTIVITY/VO [...] 06, 2024 10:44 AM Reporting Lab: ELICIA-Shira [facility] [address] [facility] [address] Performing Lab: ELICIA-Shira [facility] [address] [place] [place] [id number] [facility] 5 GLOMERULAR FILTRATION RATE/1.73 SQ M.PREDICTED [...] 06, 2024 10:44 AM Reporting Lab: [address] [address] Performing Lab: [place] [id number] [place] [address] 25-OH VITAMIN D 25-HYDROXYV ITAMIN D3 [MASS/VOLUM [...] 06, 2024 10:44 AM Reporting Lab: [address] [address] Performing Lab: [address] [address] [facility] B12 VITAMIN COBALAMIN (VITAMIN B12) [MASS/VOLUM [...] 2024 10:44 AM Reporting Lab: SHIRA MORGAN [address] [address] Performing Lab: SHIRA MORGAN [address] [address] [facility] Vital Signs Combined list of inpatient and outpatient Vital Signs from Department of Defense and Veterans Affairs, ranging from 12 months to all on record, depending upon the facility. Vital Sign Value Date Comments Source SYSTOLIC BLOOD PRESSURE 112 07/09/2024 10:20:00 [place] [facility] DIASTOLIC BLOOD PRESSURE 64 07/09/2024 10:20:00 [place] [facility] PAIN 0 07/09/2024 10:20:00 [place] [facility] TEMPERATURE 97.2 07/09/2024 10:20:00 [place] [facility] PULSE 67 07/09/2024 10:20:00 [place] [facility] RESPIRATION 16 07/09/2024 10:20:00 [place] [facility] SYSTOLIC BLOOD PRESSURE 126 04/21/2024 11:45:00 [place] [facility] DIASTOLIC BLOOD PRESSURE 64 04/21/2024 11:45:00 [place] [facility] TEMPERATURE 98.4 04/21/2024 11:45:00 [place] [facility] PULSE 60 04/21/2024 11:45:00 [place] [facility] RESPIRATION 16 04/21/2024 11:45:00 [place] [facility] SYSTOLIC BLOOD PRESSURE 140 03/04/2024 11:00:00 [place] [facility] DIASTOLIC BLOOD PRESSURE 76 03/04/2024 11:00:00 [place] [facility] WEIGHT 251 03/04/2024 11:00:00 [place] [facility] BMI 37 kg/m2 03/04/2024 11:00:00 [place] [facility] PAIN 0 03/04/2024 11:00:00 [place] [facility] TEMPERATURE 97.4 03/04/2024 11:00:00 [place] [facility] PULSE 66 03/04/2024 11:00:00 [place] [facility] RESPIRATION 14 03/04/2024 11:00:00 [place] [facility] SYSTOLIC BLOOD PRESSURE 148 02/06/2024 09:58:24 [place] [facility] DIASTOLIC BLOOD PRESSURE 79 02/06/2024 09:58:24 [place] [facility] PULSE OXIMETRY 96 02/06/2024 09:58:24 [place] [facility] WEIGHT 251 02/06/2024 09:58:24 [facility] BMI 37 kg/m2 02/06/2024 09:58:24 [facility]DA [facility]UNIGA [facility] PAIN 0 02/06/2024 09:58:24 AMANDA ZUNIGA [facility] HEIGHT 69 02/06/2024 09:58:24 AMANDA ZUNIGA [facility] TEMPERATURE 97.2 02/06/2024 09:58:24 [place] [facility] PULSE 66 02/06/2024 09:58:24 [facility]DA [facility]UNIGA [facility] RESPIRATION 12 02/06/2024 09:58:24 [place] [facility] Encounters Combined list of: 1) Encounters from Department of [facility] Affairs facilities going backup to the last 18 months, not all [place] inpatient encounters are included; 2) Encounters from the Department of [facility], [place]) facilities going backup to 280 months. Location Location Details Encounter Type Encounter Number Reason For Visit Attending Provider ADM Date DC Date Status Disposition Source [facility] Outpatient Encounter [id number] 12/15 [place] [facility] Outpatient Encounter [id number] 01/04 [place] [facility] Outpatient Encounter [id number] 01/10 [place] [facility] Outpatient Encounter [id number] 01/11 [place] [facility] Outpatient Encounter [id number] 01/12 [place] [facility] Outpatient Encounter [id number] 01/15 [place] [facility] Outpatient Encounter [id number] 01/20 [place] [facility] OFFICE O/P [place] 60 MIN [id number] Diagnos is: ICD-10- CM G35 Multipl e scleros is COMERBUCK Andres 02/05 [place] [facility] [id number] Diagnos is: ICD-10- CM Z65.9 Problem related to unspeci fied psychos ocial circums CATALINA Alegria 02/05 [place] [facility] Outpatient Encounter [id number] 02/05 [place] [facility] Outpatient Encounter [id number] Diagnos is: ICD-10- CM G35 Multipl e scleros is MICHEALHARSH Oconnor 02/05 [place] [facility] HC PRO PHONE CALL 11-20 MIN [id number] Diagnos is: ICD-10- CM Z71.2 Person consult ing for explana tion of exam or test finding VALARIE Castillo 02/09 [place] [facility] Outpatient Encounter [id number] 02/22 [place] [facility] Outpatient Encounter [id number] 03/04 [place] [facility] Outpatient Encounter [id number] Diagnos is: ICD-10- CM S82.401 A Unsp fractur e of shaft of right fibula, init for clos fx CHASE HENDERSON 03/04 [place] [facility] E OF RN EA 15 MIN [id number] Diagnos is: ICD-10- CM G35 Multipl e scleros is Stephen ALCOCER 03/04 [place] HLTH BHV ASSMT/REAS SESSMENT [id number] Diagnos is: ICD-10- CM Z65.9 Problem related to unspeci fied psychos ocial circums ovidio HILL,CO NNIE D 03/08 [place] Outpatient Encounter [id number] FRANCK WATT TTA R 03/10 [place] [facility] [place] [id number] Diagnos is: ICD-10- CM E66.09 Other obesity due to excess calorie s KAREN SCHULZ C 03/10 [place] [facility] HC PRO PHONE CALL 5-10 MIN [id number] Diagnos is: ICD-10- CM Z75.5 Holiday relief care FRANCK WATT TTA R 03/11 [place] [facility] Outpatient Encounter [id number] Diagnos is: ICD-10- CM S82.401 A Unsp fractur e of shaft of right fibula, init for clos fx CHASE HENDERSON 03/11 [place] HHCP-SERV OF PT,EA 15 MIN [id number] Diagnos is: ICD-10- CM G35 Multipl e scleros is Dianne HUFFMAN A 03/19 [place] QNHP OL DIG ASSMT&MGMT 21+ [id number] Diagnos is: ICD-10- CM Z79.899 Other intermediate (curren t) drug therapy SATINDER SHOOK Miranda L 03/19 [place] [facility] Outpatient Encounter [id number] 03/23 [place] [facility] PH1 ASSMT&MGMT NQHP 5-10 [id number] Diagnos is: ICD-10- CM G35 Multipl e scleros is ALCOCER,E DITH F 03/29 [place] [facility] Outpatient Encounter [id number] 03/29 [place] [facility] Outpatient Encounter [id number] 04/16 [place] [facility] HHS/HOSPIC E OF RN EA 15 MIN [id number] Diagnos is: ICD-10- CM G35 Multipl e scleros is ALCOCER,E DITH F 04/21 [place] [facility] Outpatient Encounter [id number] 05/03 [place] [facility] Outpatient Encounter [id number] 05/04 [place] [facility] PH1 ASSMT&MGMT NQHP 5-10 [id number] Diagnos is: ICD-10- CM M25.561 Pain in right knee ALCOCER,E DITH F 05/04 [place] PH1 ASSMT&MGMT NQHP 5-10 [id number] Diagnos is: ICD-10- CM G35 Multipl e scleros is ALCOCER,E DITH F 05/12 [place] [facility] NQHP OL DIG ASSMT&MGMT 11 [id number] Diagnos is: ICD-10- CM Z79.899 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 therapy SATINDER SHOOK I L 05/18 [place] [facility] Outpatient Encounter [id number] 05/25 [place] [facility] Outpatient Encounter [id number] Diagnos is: ICD-10- CM K21.9 Gastro- esophag eal reflux disease without esophag itis TATA MALLORY SSA 05/25 [place] [facility] [place] [id number] Diagnos is: ICD-10- CM I10 Essenti al (primar y) hyperte nsion Stephen ALCOCER 05/25 [place] [facility] Outpatient Encounter [id number] 05/27 [place] [facility] Outpatient Encounter [id number] 06/04 [place] [facility] BHV IVNTJ INDIV [id number] Diagnos is: ICD-10- CM Z65.9 Problem related to unspeci fied psychos ocial circums PADMINI Lundy NNIE D 06/07 [place] [facility] PH1 ASSMT&MGMT NQHP 11-20 [id number] Diagnos is: ICD-10- CM G35 Multipl e scleros is Dianne HUFFMAN A 06/10 [place] [facility] Outpatient Encounter [id number] 07/07 [place] [facility] HHS/HOSPIC E OF RN EA 15 MIN [id number] Diagnos is: ICD-10- CM I10 Essenti al (primar y) hyperte nsion Stephen ALCOCER RICA F 07/09 [place] [facility] Outpatient Encounter [id number] 07/19 [place] [facility] NQHP OL DIG ASSMT&MGMT 11-20 [id number] Diagnos is: ICD-10- CM Z79.899 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 therapy SATINDER SHOOK I L 08/06 [place] [facility] PH1 ASSMT&MGMT NQHP 5-10 [id number] Diagnos is: ICD-10- CM G35 Multipl e scleros is Stephen ALCOCER RICA Tomás 08/06 [place] [facility] CASE MANAGEMENT [id number] Diagnos is: ICD-10- CM Z65.9 Problem related to unspeci fied psychos ocial circums ovidio HILLCO NNIE D 08/09 [place] [facility] Outpatient Encounter [id number] 08/09 [place] Social History Combined list of available smoking, tobacco, and other social history from Department of Defense and Veterans Affairs facilities. Social History Type Response Date Comment Sourc e Tobacco smoking status NHIS VA-TOBACCO USER SOME DAYS 02/06/2024 [facility] History of tobacco use IN-TOBACCO DOESNT USE WI 30 MIN WAKEUP 02/06/2024 [facility] Plan of Care List of future care activities from Department [facility] Affairs facilities. Additional future care activities may be listed in the Assessment and Plan section. Date/Time Care Activity Care Activity Detail Facili ty 08/19/2024 AMBULATORY - SURGERY AMBULATORY - SURGERY [facility] Advance Directives List of completed, amended, or rescinded Advance Directives on record at Department of [facility] Affairs facilities. An actual copy of the Directive is not included. Date Advance Directive Provider Source 03/08/2024 ADVANCE DIRECTIVE DISCUSSION RUBIN HILL [facility]
[2024-08-13 09:51] LABS: INR 1.24 (0.9-1.1); Prothrombin Time 13.5 seconds (10.1-12.5)
--- OUTSIDE RECORDS SUMMARY | 2024-08-13 09:51 | XMS_ITS | Encounter Summary ---
Author Name [facility] [place] [facility] [place] Address [address] [place] [address] Care Team Providers Care Registered Radiologic Technologist Name Role Phone YULISSA HENDERSON Primary Care [...] PLAN F Mar 24, 2014 PLAN F [id number] [phone] LUIS MANUEL PERDOMO PATIENT BS [place] [employer] PREFERRED PROVIDER ORGANIZAT ION (PPO) [facility] SLE Sep 21, 2012 [id number] LUIS MANUEL PERDOMO PATIENT [employer] ([id number]) PRESCRIPT ION [id number] Sep 21, 2012 [id number] LUIS MANUEL PERDOMO PATIENT MEDICARE (WNR) MEDICARE (M) PART B Sep 21, 2012 PART B [id number] NOEMI PERDOMO PATIENT MEDICARE (WNR) MEDICARE (M) PART A Jan 22, 2011 PART A [id number] NOEMI PERDOMO PATIENT MEDICARE PART D (WNR) MEDICARE (M) PART D Mar 24, 2014 PART D [id number] LUIS MANUEL PERDOMO PATIENT Selected Encounter This section includes the information on record at [place] for the Encounter. 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 Date/Time Primary/Secondary Diagnosis Diagnosis Name Provider Source August 09, 2024 11:05 AM PRIMARY Problem related to unspecified psychosocial circumstances JOSHUA HILL [facility] Plan of Treatment: Future Appointments (+ [...] 19, 2024 01:20 PM AMBULATORY - SURGERY AMANDA DIAZ [facility] Advance Directives: All historical and current [...] 08, 2024 ADVANCE DIRECTIVE DISCUSSION RUBIN HILL [facility] Encounter Notes: All associated encounter notes This section contains the clinical notes associated to the Encounter. Date/Time Encounter Note(s) Provider Source August 09, 2024 10:48 AM TELEPHONE ENCOUNTE R NOTE: LOCAL TITLE: [facility] TELEPHONE NOTE STANDARD TITLE: TELEPHONE ENCOUNTER NOTE DATE OF NOTE: AUGUST 09, 2024@10:48 ENTRY DATE: AUGUST 09, 2024@10:49:17 AUTHOR: JOSHUA HILL EXP COSIGNER: URGENCY: STATUS: COMPLETED Time spent on phone call: 5 MIN Social work telephone note Date: July Dx: Problem related to certain psychosocial circumstances Procedure: SW telephone call Modifier: Licensed Clinical Cooler Man Purpose of call: Return 's call concerning possible placement of Imperial. reported that last Friday when she talked to the RN, who relayed this message to call , she was At my wit's end. said Imperial has a UTI and is taking antibiotics and this has helped, but she has hurt herself with helping Imperial go to the bathroom. She said they talked about possible retirement placement. But, said they have decided not at this time. Discussed HM/BUTTON SEWER consult, but declined. Declined caregiver support consult, but said she will let this manager social responsibility know if she decides she is in need of these services. Agreed with her plan. Problem addressed: Caregiver Jered, possible need for placement. Plan of Care: Will follow up with in two weeks to check in concerning caregiver Michaelon and resources that may be needed. /rosette/ JOSHUA HILL Signed: 08/09/2024 11:05 JOSHUA HILLMALKA [facility]
--- OUTSIDE RECORDS SUMMARY | 2024-08-13 09:51 | XMS_ITS | Continuity of Care Document ---
Author Organization [facility] Address [address] [place] [address] Care Team Providers Care Supervisor Microfilm Duplicating Unit Name Role Phone ANNA NOLASCO Primary Care Provider Assessment Encounter Date Assessment Date Assessment LastModified by Organization Details LastModified Time 07/29/2024 07/29/2024 - 79-year-old male with history of malignant neoplasm of prostate presenting for follow-up evaluation of prostate cancer treatment. - PSA remains stable and undetectable. - Suspected urinary tract infection. - Urinary incontinence possibly worsened by fluid retention. [email or web address] Not available 07/29/2024 14:40:42 Plan of Treatment Reminders Order Date Submit Date Provider Last Modified By Organization Details Last Modified Time Details Appointments RECHECK 2024 02:00P M STACY PATEL MD Not available Not available Not available Lab culture, urine 2024 025 [email or web address] 4 [facility], [address] [place] [address], [id number], 08/03/2024 19:18:11 urinalysi s panel, auto 2024 025 [email or web address] 4 [facility] [place] [facility], [address] [place] [address] Dr [address], [place], [address], 07/29/2024 14:38:36 Referral None recorded. Procedures None recorded. Surgeries None recorded. Imaging None recorded. Medication Orders methenami ne hippurate 1 gram tablet 2024 025 [facility], [address] [place], [address], 07/29/2024 14:38:43 silodosin 8 mg capsule 2024 025 [facility] [place], [address], 07/29/2024 14:38:42 Patient TargetsNo targets recorded. Patient Instructions Encounter Date Encounter Id Patient Instructions Last Modified By Organization Details Last Modified Time 07/29/2024 [id number] - Drink more water every day; keep up the good work! - If symptoms like strong-smelling urine do not improve, or get worse, seek help. - continue taking prostate and UTI pills. - Remember the follow-up shot today. [email or web address] Not available 08/08/2024 15:19:40 Reason for Referral None Reported. Results Created Date Observation Date Name Description Value Unit Range Abnormal Flag Note LastModifiedBy Organization Detail LastModifiedTime 07/30/1907/29/2024 urina lysis panel , auto Unknown Analyte Clean Catch Not Available [facility] [address], [place], [address], 07/29/2024 14:13:56 07/30/19 25 07/29/2024 urina lysis panel , auto Unknown Analyte Yellow Not Available [facility] With [address] [place], [address], 07/29/2024 14:13:56 07/30/19 25 07/29/2024 urina lysis panel , auto Unknown Analyte Clear Not Available [facility] With [address] [place], [address], 07/29/2024 14:13:56 07/30/19 25 07/29/2024 urina lysis panel , auto Unknown Analyte 1.015 Not Available [facility] With [address] [place], [address], 07/29/2024 14:13:56 07/30/19 25 07/29/2024 urina lysis panel , auto Unknown Analyte 1.003 - 1.030 Not Available [facility] With [address] [place], [address], 07/29/2024 14:13:56 07/30/19 25 07/29/2024 urina lysis panel , auto Unknown Analyte 5.0 Not Available [facility] With [address] [place], [address], 07/29/2024 14:13:56 07/30/19 25 07/29/2024 urina lysis panel , auto Unknown Analyte 5.0 - 8.0 Not Available [facility] With [address] [place], [address], 07/29/2024 14:13:56 07/30/19 25 07/29/2024 urina lysis panel , auto Unknown Analyte 500 Ade/uL Not Available [facility] With [address] [place], [address], 07/29/2024 14:13:56 07/30/19 25 07/29/2024 urina lysis panel , auto Unknown Analyte Negati ve Not Available [facility] With [address] [place], [address], 07/29/2024 14:13:56 07/30/19 25 07/29/2024 urina lysis panel , auto Unknown Analyte POSITI VE (Abnor mal) Not Available [facility] With [address] [place], [address], 07/29/2024 14:13:56 07/30/19 25 07/29/2024 urina lysis panel , auto Unknown Analyte Negati ve Not Available [facility] With [address] [place], [address], 07/29/2024 14:13:56 07/30/19 25 07/29/2024 urina lysis panel , auto Unknown Analyte Trace Not Available [facility] With [address] [place], [address], 07/29/2024 14:13:56 07/30/19 25 07/29/2024 urina lysis panel , auto Unknown Analyte Negati ve Not Available [facility] With [address] [place], [address], 07/29/2024 14:13:56 07/30/19 25 07/29/2024 urina lysis panel , auto Unknown Analyte Normal Not Available [facility] With [address] [place], [address], 07/29/2024 14:13:56 07/30/19 25 07/29/2024 urina lysis panel , auto Unknown Analyte Normal Not Available [facility] With [address] [place], [address], 07/29/2024 14:13:56 07/30/19 25 07/29/2024 urina lysis panel , auto Unknown Analyte Negati ve Not Available [facility] With [address] [place], [address], 07/29/2024 14:13:56 07/30/19 25 07/29/2024 urina lysis panel , auto Unknown Analyte Negati ve Not Available [facility] With [address] [place], [address], 07/29/2024 14:13:56 07/30/19 25 07/29/2024 urina lysis panel , auto Unknown Analyte 1 mg/dL Not Available [facility] With [address] [place], [address], 07/29/2024 14:13:56 07/30/19 25 07/29/2024 urina lysis panel , auto Unknown Analyte Normal Not Available [facility] With [address] [place], [address], 07/29/2024 14:13:56 07/30/19 25 07/29/2024 urina lysis panel , auto Unknown Analyte Negati ve Not Available [facility] With [address] [place], [address], 07/29/2024 14:13:56 07/30/19 25 07/29/2024 urina lysis panel , auto Unknown Analyte Negati ve Not Available [facility] With [address] [place], [address], 07/29/2024 14:13:56 07/30/19 25 07/29/2024 urina lysis panel , auto Unknown Analyte Negati ve Not Available [facility] With [address] [place], [address], 07/29/2024 14:13:56 07/30/19 25 07/29/2024 urina lysis panel , auto Unknown Analyte Negati ve Not Available [facility] With [address] [place], [address], 07/29/2024 14:13:56 Result Notes None recorded. Problems Name Problem SNOMED Code Status Onset Date Resolution Date Notes Provider Name and Address Organization Details Recorded Time Nocturia 167586335 Active 2014 From Automated Load;Prov ider: Lobo, Stacy;St atus: Active Not Available [facility] 6 08:27:56 Lower urinary tract symptoms due to benign prostatic hypertrop hy 25206121316 101 Active 2014 From Automated Load;Prov ider: Lobo, Stacy;St atus: Active Not Available [facility] 6 08:27:56 Increased frequency of urination 434411897 Active 2014 From Automated Load;Prov ider: Lobo, Stacy;St atus: Active Not Available [facility] 6 08:27:56 Urge incontine nce of urine 47364650 Active 2015 From Automated Load;Prov ider: Lobo, Stacy;St atus: Active Not Available [facility] 6 08:27:56 Urgent desire to urinate 86979771 Active 2015 From Automated Load;Prov ider: Lobo, Stacy;St atus: Active Not Available [facility] 6 08:27:56 Multiple sclerosis 94326301 Active 2015 From Automated Load;Prov ider: Lobo, Stacy;St atus: Active Not Available [facility] 6 08:27:56 Weakness of left arm 59699861016 065296 Active 2019 [place] [facility] 0 10:22:02 Edema 895311406 Active 2019 [place] [facility] 0 07:35:39 Weakness of left leg 13466963772 271988 Active 2019 [place] [facility] 0 07:35:40 Problem Notes None recorded. Procedures Surgical History Date Name Laterality Status Provider Name and Address Organization Details Recorded Time 07/30/19 25 Lupron Administration completed Trish Rushing [facility] 07/29/2024 14:47:24 12/04/19 24 Lupron Administration completed Urie Tripp [facility] 12/04/2023 18:14:34 05/29/19 24 Lupron Administration completed Murelene Tripp [facility] 05/29/2023 13:00:54 11/29/19 23 [facility] 11/28/2022 12:56:58 05/31/19 [address] [facility] 05/30/2022 14:30:56 05/23/[address] [facility] 06/14/2021 15:48:50 03/24/19 14 [facility]2018 13:37:26 03/24/18 56 Appendectomy completed [facility] 07/28/2018 13:37:18 Imaging Results None [...] day by oral route for 90 days. 2024 active 4 - no longer taking (replace [...] oral route for 10 days, for uti. 2024 active Not Available Not Available Not Avai lable levofloxa ann-marie 500 mg tablet Take 1 [...] day by oral route for 90 days. 2024 active Not Available Not Available Not Avai [...] and Address Organization Details Last Updated DateTime 07/29/2024 175.26 cm 36.9 kg/m2 831607.09 g Trish Rushing [facility] 07/29/2024 14:13:34 Social History Question Answer Notes LastModified by Organizat ion Details LastModified Time Tobacco Smoking Status Current Some Day Smoker Beulah davis [facility] 07/28/2018 13:36:22 How Much Tobacco Do You Chew? None Information not available 07/28/2018 Which Illicit Or Recreational Drugs Have You Used? None Information not available 03/12/2019 Live Alone Or With Others? With Others Information not available 07/28/2018 Marital Status Informatio n not available 07/28/2018 What Was The Date Of Your Most Recent Tobacco Screening? 07/29/2024 [email or web address] Information not available 07/29/2024 What Is Your Relationship Status? [email or web address] Information not available 05/24/2021 Has Tobacco Cessation Counseling Been Provided? Yes Information not available 07/28/2018 On What Date Was Tobacco Cessation Counseling Provided? 08/22/2022 [email or web address] Information not available 08/22/2022 How Many Years Have You Smoked Tobacco? 52 Information not available 07/28/2018 Sex: Male Functional Status Question Answer Note LastModified by Organizat ion Details LastModified Time What is your level of alcohol consumption? Occasional Information not available 07/28/2018 Do you or have you ever used e-cigarettes or vape? Never used electronic cigarettes Information not available 03/12/2019 Mental Status None recorded. Family History Relationship [...] available 2018 13:34:50 Medical History Condition Response Coronary Artery Disease N Other N Gout N Kidney Cyst N Kidney Stones N Enlarged Prostate Y Heart Arrhythmia N Emphysema N Head Trauma/Injury N Erectile Dysfunction N Sexually Transmitted Disease N Depression N Pneumonia N Incontinence Y Prostate Problems Y Cancer Prostate Y Paralysis N Anxiety Disorder N Hemorrhoids N Obesity N Arthritis N Infertility N Acid Reflux (GERD) Y Hematuria N Cancer Y Stroke N Neck Injury N Neurologic Disorder N Previous Radiation Therapy? N Kidney Disease N Heart Conditions N If you get up at night to urinate, how m any times? Y Kidney or Bladder Problems N Constipation N Urinary Problems N Brain Injury N Ulcers N Do you get up at night to urinate? Y Prostate Hypertrophy N Low Testosterone N Tuberculosis N Previous Chemotherapy? N AIDS/HIV N BPH N Urinary Tract Infection N Asthma N Cardiac Disease N Thyroid Disorder N Hepatitis N PCOS N Colon Cancer N Hernia N Colon/Rectal Disorders N Ostomy N Glaucoma N Pacemaker N Anesthesia Complications N Genitourinary Disease N Radiation Therapy N Chronic Kidney Disease N Bladder or Kidney Problems Y Back Injury N High Cholesterol Y High PSA N Nervous System Disorder N Liver Disease N Organ Transplant N Dialysis N Allergies/Hayfever N False Teeth Y Chronic Obstructive Pulmonary Disease N Parkinson's Disease N Chemotherapy N Anemia N Transplant N Back Pain N Chest Pain N Multiple Sclerosis Y Proteinuria N Heart Attack ([place]) N Mental Illness N Neurological Problems Y Diabetes Y Ovarian Cancer N Seizures/Epilepsy N Genitourinary problem(s) N Congestive Heart Failure (CHF) N Kidney Failure N Sleep Apnea N Bronchitis N Heart Disease N Hypertension Y Immunizations Vaccine Type Date Status Note Provider Nam e and Address Organization Details Recorded Time Influenza, split virus, quadrivalent, preservative 8 completed Murelene Tripp [facility] 05/01/2023 15:41:04 pneumococcal, unspecified formulation 7 [facility] 15:41:04 Hep A, unspecified formulation 8 completed [facility] 12/04/2023 13:20:33 Influenza, split virus, quadrivalent, preservative 9 completed Murelene Tripp [facility] 05/01/2023 15:41:04 Influenza, split virus, quadrivalent, preservative 0 completed Murelene Tripp [facility] 05/01/2023 15:41:04 SARS-COV-2 (COVID-19) vaccine, UNSPECIFIED 1 completed [facility] 12/04/2023 13:20:33 SARS-COV-2 (COVID-19) vaccine, UNSPECIFIED 1 completed Murelene Tripp [facility] 12/04/2023 13:20:33 Past Encounters Encounter ID Performer Location Encounter Start Date Encounter Closed Date Diagnosis/Indication Diagnosis SNOMED-CT Code Diagnosis ICD10 Code Diagnosis Note [id number] STACY PATEL MD [facility] [address] [address] 07/29/2024 13:58:47 07/29/2024 14:52:19 Urinary tract infectious disease 69396506 N39.0 - Send urine for culture. - Advise on increased fluid intake. Urinary incontinence 165 826689 R32 - Continue silodosin. - Monitor fluid intake. Malignant neoplasm of prostate 772344045 C61 - Maintain Lupron therapy. - PSA remains undetectab le. Health Concerns Section Related Observation LastModified by Organization Detai ls LastModified Time None Recorded Concern Status LastModified by Organization Details LastModified Time None Recorded Payers Encounter Date Sequence Insurance Name Policy Number Policy Munoz Covered Member ID Munoz Member ID Guarantor Name 07/29/2024 1 [place] David Chung [id number] Med Chung 07/29/2024 2 [employer] (MEDICARE SUPPLEMENT) Med Chung [id number] Med Chung Notes Date Note Type Note Provider Name and Address Organization Details Recorded Time 07/29/2024 text/html - The patient is a 79-year-old male presenting for a follow-up evaluation of prostate cancer treatment. - Undergoing treatment for prostate cancer with androgen deprivation therapy using Lupron. - Post-TURP with PSA levels consistently <0.13 until June 08, 2024. - Reporting symptoms suggestive of UTI with malodorous urine, increased fatigue, and erratic urination. - Has urinary incontinence, with increased urination frequency in the afternoon and at night. - Denies associated dysuria or hematuria. - Current management includes silodosin and Methenamine. - Recently started increasing fluid intake. - Labs: PSA levels remain <0.13 on multiple previous tests (dates: April 2023, October 2023, and June 08, 2024). STACY PATEL MD [address] [place] [address], [address], [facility] 08/08/2024 15:20:06
--- OUTSIDE RECORDS SUMMARY | 2024-08-13 09:52 | XMS_ITS | Data Portability ---
Author Organization CLAUDETTE KATHIE [facility] CLOS[facility] Address [address] [facility] [address] [place] [address] Care Team Providers Care Wood Carver Name Role Phone NICK NOLASCO Primary Care Provider Assessment Encounter Date Assessment Date Assessment LastModified by Organization Details LastModified Time 08/26/2023 08/26/2023 1. Secondary progressive multiple sclerosis [...] make blood tests early next week quantitative immunoglobulins , CBC, CMP, TSH 2. He is scheduled for Ocrevus infusion at [facility] outpatient on September 07 per 's report 3. follow up with me in 6 months [address]health [address] Jennifer Saab in [place] [email or web address] Not available 08/26/2023 09:21:23 10/16/2023 10/16/2023 Urine for culture and sensitivity. Antifungal/ster oid cream for jock itch. [email or web address] Not available 11/02/2023 15:23:50 12/04/2023 12/04/2023 Urine for culture and sensitivity Antifungal/ster oid cream for jock itch, improved not resolved Androgen deprivation therapy for prostate carcinoma Methenamine for UTI suppression. [email or web address] Not available 12/04/2023 19:36:35 02/24/2024 02/24/2024 1. Multiple sclerosis 2. Disabled adult 3. Disabled walking, uses walker 4. Spastic paraparesis gait 5. Needs assist for some personal care 6. nursing home current drug therapy on Ocrevus 7. High risk medication, monitoring needed for safety Plan 1. Submit blood tests CBC, CMP, IgG today or tomorrow in our lab 2. Ocrevus is scheduled Mar 08 or 3. I will call with blood test results 4. I advised I retire Apr 23 5. Follow up in [address] Tiarra Pratt [email or web address] Not available 02/24/2024 13:30:01 07/29/2024 07/29/2024 - 79-year-old male with history [...] Modified Time Details Appointments RECHECK 2024 02:00P Mellissa DIAMOND MD Not available Not available Not available Lab culture, urine 2024 025 [email or web address] 4 [facility], [address] [place] [address], [id number], 08/03/2024 19:18:11 urinalysi s panel, auto 2024 025 [email or web address] 4 [facility], [address] [place] [address] Dr Wilkins, [place], [address], 07/29/2024 14:38:36 CBC w/ auto diff 2023 024 [facility], [address] [place] [address], [id number], 02/24/2024 12:27:49 CMP, serum or plasma 2023 024 [facility], [address] [place] [address], [id number], 02/24/2024 11:55:24 igg, quantitat rani, serum 2023 024 [facility], [address] [place] [address], [address], 02/24/2024 11:55:21 urinalysi s panel, auto 2023 024 [email or web address] 4 [facility] With [address] [place], [address], 12/05/2023 13:50:22 culture, urine 2023 024 [email or web address] 4 [facility], [address] [place] [address], [id number], 12/05/2023 13:50:22 urinalysi s panel, auto 2023 024 [email or web address] 4 [facility] With [facility], [address] [place] [address] Dr Wilkins, [place], [address], 10/16/2023 15:13:59 culture, urine 2023 024 [email or web address] 4 [facility], [address] [place] [address], [phone], 10/26/2023 12:36:11 Referral None recorded. Procedures None recorded. Surgeries None recorded. Imaging None recorded. Medication Orders methenami ne hippurate 1 gram tablet 2024 025 [facility] [address], [address] [place], [address], 07/29/2024 14:38:43 silodosin 8 mg capsule 2024 025 [facility] [address], [address] [place], [address], 07/29/2024 14:38:42 methenami ne hippurate 1 gram tablet [address], [address] [place] [address], [id number], 02/24/2024 08:16:51 clotrimaz ole-betam ethasone 1 %-0.05 % topical cream 2023 024 [facility] [address], [address] [place] [address], [id number], 02/24/2024 08:18:51 Diflucan 150 mg tablet 2023 024 [facility] [address], [address] [place] [address], [id number], 02/24/2024 08:18:55 silodosin 8 mg capsule 2023 024 [address] [place] [address], [address] [place] [address], [id number], 12/05/2023 13:50:22 clotrimaz ole-betam ethasone 1 %-0.05 % topical cream [address], [address] [place] [address], [id number], 02/24/2024 08:14:59 silodosin 8 mg capsule 2023 024 [facility] [address], [address] [place] [address], [id number], 10/16/2023 15:21:57 Patient TargetsNo targets recorded. Patient Instructions Encounter Date Encounter Id Patient Instructions Last Modified By Organization Details Last Modified Time 08/26/2023 [id number] CATEGORY DESCRIPTION MINUTES Prepare to see the patient (e.g. 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 - If symptoms like strong-smelling urine do not improve, or get worse, seek help. - continue taking prostate and UTI pills. - Remember the follow-up shot today. [email or web address] Not available 08/08/2024 15:19:40 Reason for Referral None Reported. Results Created Date Observation Date Name Description Value Unit Range Abnormal Flag Note LastModifiedBy Organization Detail LastModifiedTime 10/16/19 24 10/16/2023 URINE CULTU RE enterococcus faecalis Organi sm: Entero coccus faecal is Not Available [facility] [place], [address], 10/20/2023 10:51:39 10/16/19 24 10/20/2023 URINE CULTU RE urine culture abnormal ISOLA TE #1 COLON Y COUNT : > 100,0 00 CFU/M L Proba ble Strep tococ cus sp.; ID and sensi tivit y in progr ess. Enter ococc us faeca lis Not Available [facility] [address] [place], [address], 10/20/2023 10:51:39 10/16/19 24 10/20/2023 URINE CULTU RE ampicillin <=2 ug/mL susceptib le Not Available [facility] [address] [place], [address], 10/20/2023 10:51:39 10/16/19 24 10/20/2023 URINE CULTU RE ciprofloxaci n >2 ug/mL resistant Not Available [facility] [address] [place], [address], 10/20/2023 10:51:39 10/16/19 24 10/20/2023 URINE CULTU RE levofloxacin >4 ug/mL resistant Not Available [facility] [address] [place] [address], [address], 10/20/2023 10:51:39 10/16/19 24 10/20/2023 URINE CULTU RE nitrofuranto in <=32 ug/mL susceptib le Not Available [facility] [address] [place] [address], [address], 10/20/2023 10:51:39 10/16/19 24 10/20/2023 URINE CULTU RE penicillin 2 ug/mL susceptib le Not Available [facility] [address] [place] [address], [address], 10/20/2023 10:51:39 10/16/19 24 10/20/2023 URINE CULTU RE rifampin 2 ug/mL intermedi ate Not Available [facility] [address] [place] [address], [address], 10/20/2023 10:51:39 10/16/19 24 10/20/2023 URINE CULTU RE tetracycline >8 ug/mL resistant Not Available [facility] [place], [address], 10/20/2023 10:51:39 10/16/19 24 10/20/2023 URINE CULTU RE vancomycin 1 ug/mL susceptib le Not Available [facility] [place], [address], 10/20/2023 10:51:39 10/16/19 24 10/16/2023 urina lysis panel , auto Unknown Analyte Clean Catch Not Available [facility] [place] [facility] With [address], [place], [address], 10/16/2023 15:07:53 10/16/19 24 10/16/2023 urina lysis panel , auto Unknown Analyte Yellow Not Available [facility] With [address]kins, [place], [address], 10/16/2023 15:07:53 10/16/19 24 10/16/2023 urina lysis panel , auto Unknown Analyte Cloudy Not Available [facility] With [address] [place], [address], 10/16/2023 15:07:53 10/16/19 24 10/16/2023 urina lysis panel , auto Unknown Analyte 1.015 Not Available [facility] With [address] [place], [address], 10/16/2023 15:07:53 10/16/19 24 10/16/2023 urina lysis panel , auto Unknown Analyte 1.003- 1.035 Not Available [facility] With [address], [place], [address], 10/16/2023 15:07:53 10/16/19 24 10/16/2023 urina lysis panel , auto Unknown Analyte 6.0 Not Available [facility] With [address] [place], [address], 10/16/2023 15:07:53 10/16/19 24 10/16/2023 urina lysis panel , auto Unknown Analyte 5.0-8. 0 Not Available [facility] With [address] [place], [address], 10/16/2023 15:07:53 10/16/19 24 10/16/2023 urina lysis panel , auto Unknown Analyte 500 Ade/ul (++) Not Available [facility] With [address] [place], [address], 10/16/2023 15:07:53 10/16/19 24 10/16/2023 urina lysis panel , auto Unknown Analyte Negati ve Not Available [facility] With [address] [place], [address], 10/16/2023 15:07:53 10/16/19 24 10/16/2023 urina lysis panel , auto Unknown Analyte Negati ve Not Available [facility] With [address] [place], [address], 10/16/2023 15:07:53 10/16/19 24 10/16/2023 urina lysis panel , auto Unknown Analyte Negati ve Not Available [facility] With [address] [place], [address], 10/16/2023 15:07:53 10/16/19 24 10/16/2023 urina lysis panel , auto Unknown Analyte Negati ve Not Available [facility] With [address] [place], [address], 10/16/2023 15:07:53 10/16/19 24 10/16/2023 urina lysis panel , auto Unknown Analyte Negati ve Not Available [facility] With [address] [place], [address], 10/16/2023 15:07:53 10/16/19 24 10/16/2023 urina lysis panel , auto Unknown Analyte Normal Not Available [facility] With [address] [place], [address], 10/16/2023 15:07:53 10/16/19 24 10/16/2023 urina lysis panel , auto Unknown Analyte Normal Not Available [facility] With [address], [place], [address], 10/16/2023 15:07:53 10/16/19 24 10/16/2023 urina lysis panel , auto Unknown Analyte Negati ve Not Available [facility] With [address] [place], [address], 10/16/2023 15:07:53 10/16/19 24 10/16/2023 urina lysis panel , auto Unknown Analyte Negati ve Not Available [facility] With [address] [place], [address], 10/16/2023 15:07:53 10/16/19 24 10/16/2023 urina lysis panel , auto Unknown Analyte 1 mg/dl Not Available [facility] With [address], [place], [address], 10/16/2023 15:07:53 10/16/19 24 10/16/2023 urina lysis panel , auto Unknown Analyte Normal 1 mg/dl Not Available [facility] With [address] [place], [address], 10/16/2023 15:07:53 10/16/19 24 10/16/2023 urina lysis panel , auto Unknown Analyte Negati ve Not Available [facility] With [address] [place], [address], 10/16/2023 15:07:53 10/16/19 24 10/16/2023 urina lysis panel , auto Unknown Analyte Negati ve Not Available [facility] [place] [facility] With [address], [place], [address], 10/16/2023 15:07:53 10/16/19 24 10/16/2023 urina lysis panel , auto Unknown Analyte [address] Not Available [facility] With [address], [place], [address], 10/16/2023 15:07:53 10/16/19 24 10/16/2023 urina lysis panel , auto Unknown Analyte Negati ve Not Available [facility] With [address], [place], [address], 10/16/2023 15:07:53 12/04/19 24 12/04/2023 URINE CULTU RE klebsiella pneumoniae Organi sm: Klebsi pedro pneumo niae Not Available [facility] [address] [place], [address], 12/08/2023 08:01:35 12/04/19 24 12/06/2023 URINE CULTU RE urine culture abnormal ISOLA TE #1 COLON Y COUNT : > 100,0 00 CFU/M L Proba ble Gram Negat rani Bacil lu. ID and sensi tivit y in progr ess. See [place] te Resul t(s) Below Klebs iella pneum oniae Not Available [facility] [address] [place], [address], 12/08/2023 08:01:35 12/04/19 24 12/06/2023 URINE CULTU RE amox/K clav'ate(C) <=8/4 ug/mL susceptib le Not Available [facility] [address] [place], [address], 12/08/2023 08:01:35 12/04/19 24 12/06/2023 URINE CULTU RE cefazolin <=2 ug/mL susceptib le Not Available [facility] [address] [place] [address], [address], 12/08/2023 08:01:35 12/04/19 24 12/06/2023 URINE CULTU RE ceftazidime <=1 ug/mL susceptib le Not Available [facility] [address] [place] [address], [address], 12/08/2023 08:01:35 12/04/19 24 12/06/2023 URINE CULTU RE ceftriaxone <=1 ug/mL susceptib le Not Available [facility] [address] [place] [address], [address], 12/08/2023 08:01:35 12/04/19 24 12/06/2023 URINE CULTU RE cefuroxime <=4 ug/mL susceptib le Not Available [facility] [address] [place] [address], [address], 12/08/2023 08:01:35 12/04/19 24 12/06/2023 URINE CULTU RE ciprofloxaci n <=0.25 ug/mL susceptib le Not Available [facility] [address] [place] [address], [address], 12/08/2023 08:01:35 12/04/19 24 12/06/2023 URINE CULTU RE gentamicin <=4 ug/mL susceptib le Not Available [facility] [address] [place] [address], [address], 12/08/2023 08:01:35 12/04/19 24 12/06/2023 URINE CULTU RE imipenem <=1 ug/mL susceptib le Not Available [facility] [address] [place] [address], [address], 12/08/2023 08:01:35 12/04/19 24 12/06/2023 URINE CULTU RE levofloxacin <=0.5 ug/mL susceptib le Not Available [facility] [address] [place] [address], [place], [address], 12/08/2023 08:01:35 12/04/19 24 12/06/2023 URINE CULTU RE nitrofuranto in 64 ug/mL intermedi ate Not Available [facility] [address] [place] [address], [address], 12/08/2023 08:01:35 12/04/19 24 12/06/2023 URINE CULTU RE piperacillin /alex <=16 ug/mL susceptib le Not Available [facility] [address] [place] [address], [address], 12/08/2023 08:01:35 12/04/19 24 12/06/2023 URINE CULTU RE tetracycline <=4 ug/mL susceptib le Not Available [facility] [address] [place] [address], [address], 12/08/2023 08:01:35 12/04/19 24 12/06/2023 URINE CULTU RE tobramycin <=2 ug/mL susceptib le Not Available [facility] [address] [place] [address], [address], 12/08/2023 08:01:35 12/04/19 24 12/06/2023 URINE CULTU RE trimeth/sulf a <=2/38 ug/mL susceptib le Not Available [facility] [address] [place] [address], [address], 12/08/2023 08:01:35 12/04/19 24 12/04/2023 urina lysis panel , auto Unknown Analyte Clean Catch Not Available [facility] [place] [facility] With [address], [place], [address], 12/04/2023 12:12:20 12/04/19 24 12/04/2023 urina lysis panel , auto Unknown Analyte Yellow Not Available [facility] [place] [facility] With [address], [place], [address], 12/04/2023 12:12:20 12/04/19 24 12/04/2023 urina lysis panel , auto Unknown Analyte Cloudy Not Available [facility] With [address], [place], [address], 12/04/2023 12:12:20 12/04/19 24 12/04/2023 urina lysis panel , auto Unknown Analyte 1.020 Not Available [facility] With [address], [place], [address], 12/04/2023 12:12:20 12/04/19 24 12/04/2023 urina lysis panel , auto Unknown Analyte 1.003- 1.035 Not Available [facility] With [address], [place], [address], 12/04/2023 12:12:20 12/04/19 24 12/04/2023 urina lysis panel , auto Unknown Analyte 5.0 Not Available [facility] With [address], [place], [address], 12/04/2023 12:12:20 12/04/19 24 12/04/2023 urina lysis panel , auto Unknown Analyte 5.0-8. 0 Not Available [facility] With [address], [place], [address], 12/04/2023 12:12:20 12/04/19 24 12/04/2023 urina lysis panel , auto Unknown Analyte 500 Ade/ul (++) Not Available [facility] With [address] [place], [address], 12/04/2023 12:12:20 12/04/19 24 12/04/2023 urina lysis panel , auto Unknown Analyte Negati ve Not Available [facility] With [address], [place], [address], 12/04/2023 12:12:20 12/04/1912/04/2023 urina lysis panel , auto Unknown Analyte POSITI VE (Abnor mal) Not Available [facility] With [address] [place], [address], 12/04/2023 12:12:20 12/04/1912/04/2023 urina lysis panel , auto Unknown Analyte Negati ve Not Available [facility] With [address] [place], [address], 12/04/2023 12:12:20 12/04/1912/04/2023 urina lysis panel , auto Unknown Analyte Negati ve Not Available [facility] With [address] [place], [address], 12/04/2023 12:12:20 12/04/19 24 12/04/2023 urina lysis panel , auto Unknown Analyte Negati ve Not Available [facility] With [address] [place], [address], 12/04/2023 12:12:20 12/04/1912/04/2023 urina lysis panel , auto Unknown Analyte Normal Not Available [facility] With [address] [place], [address], 12/04/2023 12:12:20 12/04/19 24 12/04/2023 urina lysis panel , auto Unknown Analyte Normal Not Available [facility] With [address] [place], [address], 12/04/2023 12:12:20 12/04/19 24 12/04/2023 urina lysis panel , auto Unknown Analyte Negati ve Not Available [facility] With [address] [place], [address], 12/04/2023 12:12:20 12/04/19 24 12/04/2023 urina lysis panel , auto Unknown Analyte Negati ve Not Available [facility] With [address] [place], [address], 12/04/2023 12:12:20 12/04/19 24 12/04/2023 urina lysis panel , auto Unknown Analyte Normal Not Available [facility] With [address] [place], [address], 12/04/2023 12:12:20 12/04/19 24 12/04/2023 urina lysis panel , auto Unknown Analyte Normal 1 mg/dl Not Available [facility] With [address] [place], [address], 12/04/2023 12:12:20 12/04/19 24 12/04/2023 urina lysis panel , auto Unknown Analyte Negati ve Not Available [facility] With [address] [place], [address], 12/04/2023 12:12:20 12/04/19 24 12/04/2023 urina lysis panel , auto Unknown Analyte Negati ve Not Available [facility] With [address] [place], [address], 12/04/2023 12:12:20 12/04/19 24 12/04/2023 urina lysis panel , auto Unknown Analyte Negati ve Not Available [facility] [place] [facility] With [address], [place], [address], 12/04/2023 12:12:20 12/04/19 24 12/04/2023 urina lysis panel , auto Unknown Analyte Negati ve Not Available [facility] [place] [facility] With [address], [place], [address], 12/04/2023 12:12:20 02/24/20 24 02/24/2024 IGG IgG 768 mg/dL 700-16 00 normal Not Available [facility] [address] [place] [address], [address], 02/24/2024 11:55:21 02/24/20 24 02/24/2024 COMP. METAB OLIC PANEL glucose 144 mg/dL 74-100 high Not Available [facility] [address] [place] [address], [address], 02/24/2024 11:55:23 02/24/20 24 02/24/2024 COMP. METAB OLIC PANEL blood urea nitrogen 17 mg/dL 6-20 normal Not Available [facility] [address] [place] [address], [address], 02/24/2024 11:55:23 02/24/20 24 02/24/2024 COMP. METAB OLIC PANEL creatinine 0.94 mg/dL 0.70-1 .28 normal Not Available [facility] [address] [place] [address], [address], 02/24/2024 11:55:23 02/24/20 24 02/24/2024 COMP. METAB OLIC PANEL BUN/creatini ne ratio 18 (calc ) 10-20 normal Not Available [facility] [address] [place] [address], [address], 02/24/2024 11:55:23 02/24/20 24 02/24/2024 COMP. METAB OLIC PANEL sodium 132 mmol/ L 136-14 5 low Not Available [facility] [address] [place] [address], [address], 02/24/2024 11:55:23 02/24/20 24 02/24/2024 COMP. METAB OLIC PANEL potassium 4.3 mmol/ L 3.4-5. 0 normal Not Available [facility] [address] [place] [address], [address], 02/24/2024 11:55:23 02/24/20 24 02/24/2024 COMP. METAB OLIC PANEL chloride 99 mmol/ L 98-107 normal Not Available [facility] [address] [place] [address], [address], 02/24/2024 11:55:23 02/24/20 24 02/24/2024 COMP. METAB OLIC PANEL carbon dioxide 24 mmol/ L 22-31 normal Not Available [facility] [address] [place] [address], [address], 02/24/2024 11:55:23 02/24/20 24 02/24/2024 COMP. METAB OLIC PANEL anion gap 9 (calc ) 7-25 normal Not Available [facility] [address] [place] [address], [address], 02/24/2024 11:55:23 02/24/20 24 02/24/2024 COMP. METAB OLIC PANEL calcium 9.0 mg/dL 8.6-10 .2 normal Not Available [facility] [address] [place] [address], [address], 02/24/2024 11:55:23 02/24/20 24 02/24/2024 COMP. METAB OLIC PANEL total protein 6.4 g/dL 6.4-8. 3 normal Not Available [facility] [address] [place] [address], [address], 02/24/2024 11:55:23 02/24/20 24 02/24/2024 COMP. METAB OLIC PANEL albumin 3.6 g/dL 3.5-5. 2 normal Not Available [facility] [address] [place] [address], [address], 02/24/2024 11:55:23 02/24/20 24 02/24/2024 COMP. METAB OLIC PANEL globulin 2.8 1.5-4. 5 normal Not Available [facility] [address] [place] [address], [address], 02/24/2024 11:55:23 02/24/20 24 02/24/2024 COMP. METAB OLIC PANEL albumin/glob ulin ratio 1.3 (calc ) 1.1-2. 5 normal Not Available [facility] [address] [place] [address], [address], 02/24/2024 11:55:23 02/24/20 24 02/24/2024 COMP. METAB OLIC PANEL bilirubin, total 0.7 mg/dL 0.1-1. 2 normal Not Available [facility] [address] [place] [address], [address], 02/24/2024 11:55:23 02/24/20 24 02/24/2024 COMP. METAB OLIC PANEL alkaline phosphatase 144 U/L 40-129 high Not Available [facility] [address] [place] [address], [address], 02/24/2024 11:55:23 02/24/20 24 02/24/2024 COMP. METAB OLIC PANEL AST 12 U/L 0-40 normal Not Available [facility] [address] [place] [address], [address], 02/24/2024 11:55:23 02/24/20 24 02/24/2024 COMP. METAB OLIC PANEL ALT 20 U/L 0-41 normal Not Available [facility] [address] [place] [address], [address], 02/24/2024 11:55:23 02/24/20 24 02/24/2024 COMP. METAB OLIC PANEL GFR 83 >= 60 normal NOT E New calcu latio n for GFR (CKD- EPI 2020) is formu lated witho ut race adjus tment facto rs at the recom menda tion of the Natio nal Kidne y Found ation and Ameri can Socie ty of Nephr ology . This calcu latio n has not been valid ated in pregn ant women . For pedia tric patie nts refer to https ://uma w.rachna braggy.o rg/pr ofess ional s/KDO QI/gf r_cal culat orPed Not Available [facility] [address] [place] [address], [address], 02/24/2024 11:55:23 02/24/20 24 02/24/2024 COMPL ETE BLOOD COUNT white blood cells 9.6 10*3/ uL 3.8-10 .8 normal RESUL TS RECHE CKED Hemog mer obtai heather after warmi ng to 37 C. No moscoso e. Not Available [facility] [address] [place] [address], [address], 02/24/2024 12:27:49 02/24/20 24 02/24/2024 COMPL ETE BLOOD COUNT red blood cells 4.24 10*6/ uL 4.20-5 .80 normal Not Available [facility] [address] [place], [address], 02/24/2024 12:27:49 02/24/20 24 02/24/2024 COMPL ETE BLOOD COUNT hemoglobin 12.4 g/dL 14.0-1 8.0 low Not Available [facility] [address] [place] [address], [address], 02/24/2024 12:27:49 02/24/20 24 02/24/2024 COMPL ETE BLOOD COUNT hematocrit 36.3 % 40.0-5 2.0 low Not Available [facility] [address] [place], [address], 02/24/2024 12:27:49 02/24/20 24 02/24/2024 COMPL ETE BLOOD COUNT MCV 86 fL 80-100 normal Not Available [facility] [address] [place] [address], [address], 02/24/2024 12:27:49 02/24/20 24 02/24/2024 COMPL ETE BLOOD COUNT MCH 29 pg 26-35 normal Not Available [facility] [address] [place] [address], [address], 02/24/2024 12:27:49 02/24/20 24 02/24/2024 COMPL ETE BLOOD COUNT MCHC 34 g/dL 32-36 normal Not Available [facility] [address] [place] [address], [address], 02/24/2024 12:27:49 02/24/20 24 02/24/2024 COMPL ETE BLOOD COUNT RDW 15.1 % 11.0-1 5.0 high Not Available [facility] [address] [place] [address], [address], 02/24/2024 12:27:49 02/24/20 24 02/24/2024 COMPL ETE BLOOD COUNT MPV - fL 6.2-10 .5 abnormal Unabl e to obtai n instr ument MPV. Not Available [facility] [address] [place] [address], [address], 02/24/2024 12:27:49 02/24/20 24 02/24/2024 COMPL ETE BLOOD COUNT platelet count - 10*3/ uL 150-40 0 abnormal Unabl e to repor t instr ument plate let count due to plate let aggre gatio n in EDTA. Plate lets appea r: CLUMP ED If recol lecti on is lucia ed - pleas e order test code CPLT. Not Available [facility] [address] [place] [address], [address], 02/24/2024 12:27:49 02/24/20 24 02/24/2024 COMPL ETE BLOOD COUNT neutrophil,a bsolute 5.4 10*3/ uL 1.6-8. 4 normal Not Available [facility] [address] [place] [address], [address], 02/24/2024 12:27:49 02/24/20 24 02/24/2024 COMPL ETE BLOOD COUNT lymphocyte,a bsolute 2.7 10*3/ uL 0.4-5. 1 normal Not Available [facility] [address] [place] [address], [address], 02/24/2024 12:27:49 02/24/20 24 02/24/2024 COMPL ETE BLOOD COUNT monocyte,abs olute 0.6 10*3/ uL 0.0-1. 2 normal Not Available [facility] [address] [place] [address], [address], 02/24/2024 12:27:49 02/24/20 24 02/24/2024 COMPL ETE BLOOD COUNT eosinophil,a bsolute 0.7 10*3/ uL 0.0-0. 8 normal Not Available [facility] [address] [place] [address], [address], 02/24/2024 12:27:49 02/24/20 24 02/24/2024 COMPL ETE BLOOD COUNT basophil,abs olute 0.1 10*3/ uL 0.0-0. 3 normal Not Available [facility] [address] [place] [address], [address], 02/24/2024 12:27:49 02/24/20 24 02/24/2024 COMPL ETE BLOOD COUNT % neutrophils 56.8 % 42.0-7 8.0 normal Not Available [facility] [address] [place] [address], [address], 02/24/2024 12:27:49 02/24/20 24 02/24/2024 COMPL ETE BLOOD COUNT % lymphocytes 28.7 % 11.0-4 7.0 normal Not Available [facility] [address] [place] [address], [address], 02/24/2024 12:27:49 02/24/20 24 02/24/2024 COMPL ETE BLOOD COUNT % monocytes 6.0 % 0.0-11 .0 normal Not Available [facility] [address] [place] [address], [address], 02/24/2024 12:27:49 02/24/20 24 02/24/2024 COMPL ETE BLOOD COUNT % eosinophils 7.5 % 0.0-7. 0 high Not Available [facility] [address] [place] [address], [address], 02/24/2024 12:27:49 02/24/20 24 02/24/2024 COMPL ETE BLOOD COUNT % basophils 1.0 % 0.0-3. 0 normal Not Available [facility] [address] [place] [address], [address], 02/24/2024 12:27:49 02/24/20 24 02/24/2024 COMPL ETE BLOOD COUNT nucleated red cells 0.1 % 0.0-0. 9 normal Not Available [facility] [address] [place] [address], [address], 02/24/2024 12:27:49 02/24/20 24 02/24/2024 COMPL ETE BLOOD COUNT nucleated RBCs, absolute 0.01 10*3/ uL not estab. normal Not Available [facility] [address] [place] [address], [address], 02/24/2024 12:27:49 02/24/20 24 02/24/2024 MORPH OLOGY anisocytosis MODERA TE abnormal Not Available [facility] [address] [place] [address], [address], 02/24/2024 12:27:52 07/30/19 25 07/29/2024 URINE CULTU RE escherichia coli Organi sm: Escher ichia coli Not Available [facility] [address] [place] [address], [address], 07/31/2024 15:31:54 07/30/19 25 07/31/2024 URINE CULTU RE urine culture abnormal ISOLA TE #1 COLON Y COUNT : > 100,0 00 CFU/M L Proba ble Gram Negat rani Bacil lu. ID and sensi tivit y in progr ess. See [place] te Resul t(s) Below Esche sen a coli Not Available [facility] [address] [place] [address], [address], 07/31/2024 15:31:54 07/30/19 25 07/31/2024 URINE CULTU RE amox/K clav'ate(C) <=8/4 ug/mL susceptib le Not Available [facility] [address] [place] [address], [address], 07/31/2024 15:31:54 07/30/19 25 07/31/2024 URINE CULTU RE ampicillin <=8 ug/mL susceptib le Not Available [facility] [address] [place] [address], [address], 07/31/2024 15:31:54 07/30/19 25 07/31/2024 URINE CULTU RE cefazolin <=2 ug/mL susceptib le Not Available [facility] [address] [place] [address], [address], 07/31/2024 15:31:54 07/30/19 25 07/31/2024 URINE CULTU RE ceftazidime <=1 ug/mL susceptib le Not Available [facility] [address] [place] [address], [address], 07/31/2024 15:31:54 07/30/19 25 07/31/2024 URINE CULTU RE ceftriaxone <=1 ug/mL susceptib le Not Available [facility] [address] [place] [address], [address], 07/31/2024 15:31:54 07/30/19 25 07/31/2024 URINE CULTU RE cefuroxime <=4 ug/mL susceptib le Not Available [facility] [address] [place] [address], [address], 07/31/2024 15:31:54 07/30/19 25 07/31/2024 URINE CULTU RE ciprofloxaci n <=0.25 ug/mL susceptib le Not Available [facility] [address] [place] [address], [address], 07/31/2024 15:31:54 07/30/19 25 07/31/2024 URINE CULTU RE gentamicin <=4 ug/mL susceptib le Not Available [facility] [address] [place] [address], [address], 07/31/2024 15:31:54 07/30/19 25 07/31/2024 URINE CULTU RE imipenem <=1 ug/mL susceptib le Not Available [facility] [address] [place] [address], [address], 07/31/2024 15:31:54 07/30/19 25 07/31/2024 URINE CULTU RE levofloxacin <=0.5 ug/mL susceptib le Not Available [facility] [address] [place] [address], [address], 07/31/2024 15:31:54 07/30/19 25 07/31/2024 URINE CULTU RE nitrofuranto in <=32 ug/mL susceptib le Not Available [facility] [address] [place] [address], [address], 07/31/2024 15:31:54 07/30/19 25 07/31/2024 URINE CULTU RE piperacillin /alex <=16 ug/mL susceptib le Not Available [facility] [address] [place] [address], [address], 07/31/2024 15:31:54 07/30/19 25 07/31/2024 URINE CULTU RE tetracycline <=4 ug/mL susceptib le Not Available [facility] [address] [place] [address], [address], 07/31/2024 15:31:54 07/30/19 25 07/31/2024 URINE CULTU RE tobramycin <=2 ug/mL susceptib le Not Available [facility] [address] [place], [address], 07/31/2024 15:31:54 07/30/19 25 07/31/2024 URINE CULTU RE trimeth/sulf a <=2/38 ug/mL susceptib le Not Available [facility] [address] [place] [address], [address], 07/31/2024 15:31:54 07/30/19 25 07/29/2024 urina lysis panel , auto Unknown Analyte Clean Catch Not Available [facility] [address], [place], [address], 07/29/2024 14:13:56 07/30/19 25 07/29/2024 urina lysis panel , auto Unknown Analyte Yellow Not Available [facility] [address], [place], [address], 07/29/2024 14:13:56 07/30/19 25 07/29/2024 urina lysis panel , auto Unknown Analyte Clear Not Available [facility] [address], [place], [address], 07/29/2024 14:13:56 07/30/19 25 07/29/2024 urina lysis panel , auto Unknown Analyte 1.015 Not Available [facility] [address] [place], [address], 07/29/2024 14:13:56 07/30/19 25 07/29/2024 urina lysis panel , auto Unknown Analyte 1.003 - 1.030 Not Available [facility] [address] [place], [address], 07/29/2024 14:13:56 07/30/19 25 07/29/2024 urina lysis panel , auto Unknown Analyte 5.0 Not Available [facility] [address] [place], [address], 07/29/2024 14:13:56 07/30/19 25 07/29/2024 urina lysis panel , auto Unknown Analyte 5.0 - 8.0 Not Available [facility] [address] [place], [address], 07/29/2024 14:13:56 07/30/19 25 07/29/2024 urina lysis panel , auto Unknown Analyte 500 Ade/uL Not Available [facility] [address] [place], [address], 07/29/2024 14:13:56 07/30/19 25 07/29/2024 urina lysis panel , auto Unknown Analyte Negati ve Not Available [facility] [address] [place], [address], 07/29/2024 14:13:56 07/30/1907/29/2024 urina lysis panel , auto Unknown Analyte POSITI VE (Abnor mal) Not Available [facility] [address] [place], [address], 07/29/2024 14:13:56 07/30/19 25 07/29/2024 urina lysis panel , auto Unknown Analyte Negati ve Not Available [facility] With [address] [place], [address], 07/29/2024 14:13:56 07/30/19 25 07/29/2024 urina lysis panel , auto Unknown Analyte Trace Not Available [facility] [address] [place], [address], 07/29/2024 14:13:56 07/30/19 25 07/29/2024 urina lysis panel , auto Unknown Analyte Negati ve Not Available [facility] With [address] [place], [address], 07/29/2024 14:13:56 07/30/19 25 07/29/2024 urina lysis panel , auto Unknown Analyte Normal Not Available [facility] [address] [place], [address], 07/29/2024 14:13:56 07/30/19 25 07/29/2024 urina lysis panel , auto Unknown Analyte Normal Not Available [facility] With [address] [place], [address], 07/29/2024 14:13:56 07/30/19 25 07/29/2024 urina lysis panel , auto Unknown Analyte Negati ve Not Available [facility] With [address] [place], [address], 07/29/2024 14:13:56 07/30/19 25 07/29/2024 urina lysis panel , auto Unknown Analyte Negati ve Not Available [facility] With [address] [place], [address], 07/29/2024 14:13:56 07/30/19 25 07/29/2024 urina lysis panel , auto Unknown Analyte 1 mg/dL Not Available [facility] [address] [place], [address], 07/29/2024 14:13:56 07/30/19 25 07/29/2024 urina lysis panel , auto Unknown Analyte Normal Not Available [facility] With [address] [place], [address], 07/29/2024 14:13:56 07/30/19 25 07/29/2024 urina lysis panel , auto Unknown Analyte Negati ve Not Available [facility] With [address] [place], [address], 07/29/2024 14:13:56 07/30/19 25 07/29/2024 urina lysis panel , auto Unknown Analyte Negati ve Not Available [facility] With [address] [place], [address], 07/29/2024 14:13:56 07/30/19 25 07/29/2024 urina lysis panel , auto Unknown Analyte Negati ve Not Available [facility] With [address] [place], [address], 07/29/2024 14:13:56 07/30/19 25 07/29/2024 urina lysis panel , auto Unknown Analyte Negati ve Not Available [facility] With [address] [place], [address], 07/29/2024 14:13:56 Result Notes None recorded. Problems Name Problem SNOMED Code Status Onset Date Resolution Date Notes Provider Name and Address Organization Details Recorded Time Nocturia 275105853 Active 2014 From Automated Load;Prov ider: Lobo, Stacy;St atus: Active Not Available [facility] 6 08:27:56 Lower urinary tract symptoms due to benign prostatic hypertrop 58826897492 101 Active 2014 From Automated Load;Prov ider: Lobo, Stacy;St atus: Active Not Available [facility] 6 08:27:56 Increased frequency of urination 675656538 Active 2014 From Automated Load;Prov ider: Lobo, Stacy;St atus: Active Not Available [facility] 6 08:27:56 Urge incontine nce of urine 86813344 Active 2015 From Automated Load;Prov ider: Lobo, Stacy;St atus: Active Not Available [facility] 6 08:27:56 Urgent desire to urinate 60047809 Active 2015 From Automated Load;Prov ider: Lobo, Stacy;St atus: Active Not Available [facility] 6 08:27:56 Multiple sclerosis 64536167 Active 2015 From Automated Load;Prov ider: Lobo, Stacy;St atus: Active Not Available [facility] 6 08:27:56 Weakness of left arm 10647244060 949897 [facility] Edema 299105299 Active 2019 [facility] 0 07:35:39 Weakness of left leg 60415957240 655959 Active 2019 [facility] 07:35:40 Problem Notes None recorded. Procedures Surgical History Date Name Laterality Status Provider Name and Address Organization Details Recorded Time 07/30/19 25 Lupron Administration completed Trish Rushing [facility] 07/29/2024 14:47:24 12/04/19 24 Lupron Administration completed Murelene Tripp [facility] 12/04/2023 18:14:34 05/29/19 24 Lupron Administration completed Murelene Tripp [place] [facility] 05/29/2023 13:00:54 11/29/19 23 [facility] 12:56:58 05/31/19 23 [facility] 05/30/2022 14:30:56 05/23/19 22 Prostate Surgery [facility] 06/14/2021 15:48:50 03/24/19 14 Knee Surgery completed Beulah Rosy [facility] 07/28/2018 13:37:26 03/24/18 56 Appendectomy completed Beulah [facility] 07/28/2018 13:37:18 Imaging Results None recorded. Procedure [...] Avai lable Vitals Date Recorded Body height Provider Name an d Address Organization Details Last Updated DateTime 08/26/2023 175.26 cm Janeth Estefany [facility] 0 08/26/2023 08:18:10 Date Recorded Body height Body mass index (BMI) Body weight Provider Name and Address Organization Details Last Updated DateTime 10/16/2023 175.26 cm 36.9 kg/m2 480126.09 g Murelene Tripp [facility] 10/16/2023 15:07:11 Date Recorded Body height Body mass index (BMI) Body weight Provider Name and Address Organization Details Last Updated DateTime 12/04/2023 175.26 cm 36.9 kg/m2 082461.09 g Murelene Tripp [facility] 12/04/2023 13:20:26 Date Recorded Body height Provider Name an d Address Organization Details Last Updated DateTime 02/24/2024 175.26 cm Janeth Estefany [facility] 1 04/26/2023 08:14:12 Date Recorded Body height Body mass index (BMI) Body weight Provider Name and Address Organization Details Last Updated DateTime 07/29/2024 175.26 cm 36.9 kg/m2 865922.09 g Trish Rushing [facility] 07/29/2024 14:13:34 Social History Question Answer Notes LastModified by [employer] Details LastModified Time Tobacco Smoking Status Current Some Day Smoker Beulah Gallegos susan [facility] 07/28/2018 13:36:22 How Much Tobacco Do You Chew? None Information not available 07/28/2018 Which Illicit Or Recreational Drugs Have You Used? None Information not available 03/12/2019 Live Alone Or With Others? With Others Information not available 07/28/2018 Marital Status Informatio n not available 07/28/2018 What Was The Date Of Your Most Recent Tobacco Screening? 07/29/2024 [email or web address] Information not available 07/29/2024 What Is Your [...] Multiple Sclerosis Y Proteinuria N Heart Attack (GA) N Mental Illness N Neurological Problems Y Diabetes Y Ovarian Cancer N Seizures/Epilepsy N Genitourinary problem(s) N Congestive Heart Failure (CHF) N Kidney Failure N Sleep Apnea N Bronchitis N Heart Disease N Hypertension Y Immunizations Vaccine Type Date Status Note Provider Nam e and Address Organization Details Recorded Time Influenza, split virus, quadrivalent, preservative 8 completed Murelene Tripp null, [facility] 05/01/2023 15:41:04 pneumococcal, unspecified formulation 7 completed Murelene Tripp null, [facility] 05/01/2023 15:41:04 Hep A, unspecified formulation 8 [facility] 12/04[facility] 13:20:33 Influenza, split virus, quadrivalent, preservative 9 completed Murelene Tripp null, [facility] 05/01/2023 15:41:04 Influenza, split virus, quadrivalent, preservative 0 completed Murelene Tripp null, [facility] 05/01/2023 15:41:04 SARS-COV-2 (COVID-19) vaccine, UNSPECIFIED 1 completed Murelene Tripp null, [facility] 12/04/2023 13:20:33 SARS-COV-2 (COVID-19) vaccine, UNSPECIFIED 1 completed Murelene Tripp null, [facility] 12/04/2023 13:20:33 Past Encounters Encounter ID Performer Location Encounter Start Date Encounter Closed Date Diagnosis/Indication Diagnosis SNOMED-CT Code Diagnosis ICD10 Code Diagnosis Note [id number] FRANNY DAVILA MD [facility] [address] [place] [phone] 07/28/2018 13:20:05 07/28/2018 16:17:39 Multiple sclerosis 37746094 G35 Infection screening 2437 57704 Z11.59 [id number] FRANNY DAVILA MD [facility] [address] [address] 09/17/2018 08:37:06 09/17/2018 09:28:57 Multiple sclerosis 47977204 G35 [id number] FRANNY DAVILA MD [facility]UROLOG[facility] [address] [address] 12/07/2018 10:23:49 12/07/2018 11:43:47 Multiple sclerosis 12934778 G35 Primary pr ogressive multiple sclerosis 412214489 G35 Abnormal g ait due to muscle weakness 319515643 M62.81 [address]eds walk ing aid in home 759380694 Z74.09 Neurogenic dysfunction of urinary bladder 600013798 N31.9 Long-term drug therapy 479446034 Z79.899 Weakness of left arm 926 3874859 7178819 G83.24 [id number] FRANNY DAVILA MD NEUROLOGY [address] [place] [address] 03/12/2019 10:34:22 03/12/2019 12:31:08 Multiple sclerosis 32458954 G35 [id number] FRANNY DAVILA MD NEUROLOGY [address] [address] 10/05/2019 10:11:43 10/05/2019 11:33:44 Multiple sclerosis 14416518 G35 Weakness of left arm 720 8324908 9518984 G83.24 Weakness of left leg 666 8483279 7815369 G83.10 Edema 279430196 R60.9 Primary pr ogressive multiple sclerosis 356615746 G35 Long-term drug therapy 247457515 Z79.176 [id number] FRANNY DAVILA MD NEUROLOGY [address] [address] 03/30/2020 08:02:28 03/30/2020 08:52:00 Multiple sclerosis 70571477 G35 Primary pr ogressive multiple sclerosis 336435934 G35 Long-term current use of drug therapy 545633219 Z79.899 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 Abnormal g ait due to muscle weakness 467519063 M62.81 [id number] FRANNY DAVILA MD NEUROLOGY [address] [address] 10/02/2020 07:59:39 10/02/2020 11:08:30 Primary progressive multiple sclerosis 977856594 G35 Long-term current use of drug therapy 708265385 Z79.899 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.20 Abnormal g ait due to muscle weakness 783938619 M62.81 Paresthesi a of upper limb 45050927 R20.2 Paresthesi a of lower extremity 600976485 R20.2 [id number] FRANNY DAVILA MD NEUROLOGY [address] [address] 03/05/2021 08:26:17 03/05/2021 09:19:51 Primary progressive multiple sclerosis 676423560 G35 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 Abnormal g ait due to muscle weakness 264578996 M62.81 Nocturia 889235663 R35.1 [id number] STACY DIAMOND MD [address] [address] 05/24/2021 12:34:51 05/24/2021 20:50:59 Benign prostatic hyperplasia with outflow obstruction 412524376 N40.1 Increased frequency of urination 175826501 R35.0 Nocturia 783632385 R35.1 [id number] STACY DIAMOND MD [facility] [address] [place] [id number] 06/14/2021 13:34:12 06/20/2021 17:49:03 Postoperative care 455806681 Z48.89 Malignant neoplasm of prostate 387676561 C61 [id number] STACY DIAMOND MD [facility] [address] [place] [address] ,[place] [id number] 08/02/2021 12:37:32 08/08/2021 07:49:44 Urge incontinence of urine 34604305 N39.41 Urinary tr act infectious disease 48432156 N39.0 Benign pro static hyperplasia with outflow obstruction 310029148 N40.1 [id number] [place] [address] [place] [address] 1 09/03/2021 08:05:11 09/03/2021 08:50:06 Primary progressive multiple sclerosis 241313238 G35 Abnormal g ait due to muscle weakness 386618684 M62.81 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 705735426 Z99.3 [id number] STACY DIAMOND MD [facility] [address] [place] [address] ,[place] [phone] 10/04/2021 14:21:00 10/05/2021 14:25:46 Benign prostatic hyperplasia with outflow obstruction [id number] N40.1 Urge incon tinence of urine 83554838 N39.41 [id number] STACY DIAMOND MD [facility] [address],[place] [phone] 01/31/2022 12:40:52 02/20/2022 13:17:44 Benign prostatic hyperplasia with outflow obstruction 622470395 N40.1 Urge incon tinence of urine 17835822 N39.41 Malignant neoplasm of prostate 289307680 C61 [id number] STACY DIAMOND MD SURGERY SCHEDULE [address] [place] [address] 1 02/21/2022 06:59:24 02/21/2022 06:59:47 [id number] FRANNY DAVILA MD NEUROLOGY [address] [address] 03/04/2022 07:53:47 03/05/2022 08:48:30 Multiple sclerosis 23299669 G35 Long-term current use of drug therapy 180925708 Z79.899 Abnormal g ait due to muscle weakness 366640273 M62.81 Unsteady w hen standing 084311656 R26.81 [id number] MD [facility]DAD [facility] [address] [place] [address] 03/21/2022 13:39:55 04/03/2022 11:08:21 Malignant neoplasm of prostate 934574121 C61 [id number] STACY DIAMOND MD [facility] [address] [place] [address] 05/30/2022 14:08:49 05/31/2022 09:49:17 Malignant neoplasm of prostate 869300333 C61 Prostate s pecific antigen above reference range 439743076 R97.20 [id number] FRANNY DAVILA MD NEUROLOGY [address] [address] 08/22/2022 07:54:52 08/23/2022 04:12:24 Multiple sclerosis 51327466 G35 Abnormal g ait due to muscle weakness 889800400 M62.81 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 Order provided [id number] STACY DIAMOND MD [facility] [address] [place] [address] 11/28/2022 12:51:42 11/28/2022 15:53:06 Malignant neoplasm of prostate 562555838 C61 Nocturia 618761510 R35.1 [id number] FR[place] [address] 02/24/2023 08:47:29 02/24/2023 09:44:47 Multiple sclerosis 67009640 G35 Disability 38355968 Z78. 9 Walking disability 96378 8008 R26.2 [id number] STACY DIAMOND MD [facility] [address] [place] [address] 8 05/01/2023 14:17:13 05/02/2023 15:10:44 Urinary tract infectious disease 01027073 N39.0 Malignant neoplasm of prostate 193554299 C61 [id number] STACY DIAMOND MD [facility] [address] [place] [address] 8 05/29/2023 12:52:08 05/29/2023 15:53:22 Urinary tract infectious disease 02278399 N39.0 Malignant neoplasm of prostate 734556173 C61 [id number] FRANNY DAVILA MD NEUROLOGY [place] [address] 1 08/26/2023 08:17:18 08/27/2023 05:19:13 Long-term current use of drug therapy 952199608 Z79.899 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 [address] [place] [place] [phone] 8 12/04/2023 13:00:03 12/04/2023 18:37:32 Urinary tract infectious disease 61893869 N39.0 see above Malignant neoplasm of prostate 933935199 C61 Lupron injection today Tinea cruris 612445595 B 35.6 Urinary incontinence 165 135233 R32 [id number] FRANNY DAVILA MD NEUROLOGY [address] [place] [address] 02/24/2024 08:13:44 02/26/2024 12:06:49 Multiple sclerosis 77132863 G35 Long-term current use of drug therapy 629303482 Z79.899 High risk medication monitoring indicated [id number] 9482120 Z76.89 Disability 96572367 Z78. 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 - Advise on increased fluid intake. Urinary incontinence 165 900067 R32 - Continue silodosin. - Monitor fluid intake. Malignant neoplasm of prostate 443974327 C61 - Maintain Lupron therapy. - PSA remains undetectab le. Health Concerns Section Related Observation LastModified by Organization Detai ls LastModified Time None Recorded Concern Status LastModified by Organization Details LastModified Time None Recorded Advance Directives Directive None Recorded Payers Insurance Date Sequence Insurance Name Policy Number Policy Munoz Covered Member ID Munoz Member ID Guarantor Name 07/26/2024 1 [place] David Chung [id number] Med Chung 08/09/2024 2 A[employer] (MEDICARE SUPPLEMENT) Med Chung [id number] Med Chung Notes Date Note Type Note Provider Name and Address Organization Details Recorded Time 08/26/2023 text/html 78 yo here today via [...] is September 07, he gets [facility] at [facility]. FRANNY DAVILA MD [address] [place] [address], [phone], [facility] 08/27/2023 07:18:32 10/16/2023 text/html 78-year-old male in the office for evaluation of incontinence. He is currently taking alfuzosin. He has a rash in his genitourinary area. He is having a hard time keeping dry. He reports constant dribble. Daytime and night time frequency every 2 hours. PSAFebruary 2023-0.13August 2022-0.176June 2022- 0.24August 2021- 3.72 STACY DIAMODN MD [address] [place] [address], [phone], [facility] 11/02/2023 15:24:08 12/04/2023 text/html 78-year-old male in [...] 2022- 0.24August 2021- 3.72 STACY DIAMOND MD [address] [place] [address], [phone], [facility] 12/04/2023 19:37:14 02/24/2024 text/html Telehealth visit 79 [...] CMP, IgG Reg Nick Nolasco MD in [place] is reg MD. FRANNY DAVILA MD [address] [place] [address], [phone], [facility] 02/24/2024 13:31:52 07/29/2024 text/html - The patient is a [...] October 2023, and June 08, 2024). STACY DIAMOND MD [address] [place] [address], [phone], [facility] 08/08/2024 15:20:06
--- OUTSIDE RECORDS SUMMARY | 2024-08-13 09:52 | XMS_ITS | Encounter Summary ---
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 Name Role Phone YULISSA HENDERSON Primary [...] PLAN F Mar 24, 2014 PLAN F [id number] LUIS MANUEL PERDOMO PATIENT [facility] [place] BLU[place] PREFERRED PROVIDER ORGANIZAT ION (PPO) [facility] Sep 21, 2012 [id number] [phone] LUIS MANUEL PERDOMO PATIENT [employer] ([id number]) PRESCRIPT ION WL3A Sep 21, 2012 [id number] LUIS MANUEL PERDOMO PATIENT MEDICARE (WNR) MEDICARE (M) PART B Sep 21, 2012 PART B [id number] NOEMI PERDOMO PATIENT MEDICARE (WNR) MEDICARE (M) PART A Jan 22, 2011 PART A [id number] NOEMI PERDOMO PATIENT MEDICARE PART D (WNR) MEDICARE (M) PART D Mar 24, 2014 PART D [id number] LUIS MANUEL PERDOMO PATIENT Selected Encounter This section includes the information on record at [place] for the Encounter. Date/Time Encounter Type Encounter Description Reason Provider Source August 06, 2024 02:01 PM PH1 ASSMT&MGMT NQHP 5-10 TELEPHONE HBPC ICD-10-CM G35 Multiple sclerosis LYNN ALCOCER Stephen Encounter Template Text not used by [place] Assessments - Encounter Diagnoses This section includes the primary and secondary diagnoses documented for the Encounter. Date/Time Primary/Secondary Diagnosis Diagnosis Name Provider Source August 06, 2024 02:01 PM PRIMARY Multiple sclerosis [facility] Plan of Treatment: Future Appointments (+ 6 months) and Future Tests (+/- 45 days) The Plan of Treatment section includes future care activities for the patient from all [place] treatmentfacilities. This section includes future appointments and future orders which are active, pending or scheduled. Future Appointments This section includes appointments that were scheduled to occur 6 months from the date of the Encounter, up to a maximum of 20 appointments. The data comes from all [place] treatment facilities. Appointment Date/Time Appointment Type Appointme nt Facility Name August 19, 2024 01:20 PM AMBULATORY - SURGERY [facility] Advance Directives: All historical and current Section Date Range: From patient's date of to the date document was created. This section includes ALL of a patient's completed or amended [place] Advance and Rescinded Directives. The entries below indicate that a directive exists for the patient, but an actual copy is not included with this document. The data comes from all [place] facilities. Date Advance Directives Provider Source Mar 08, 2024 ADVANCE DIRECTIVE DISCUSSION [facility] Encounter Notes: All associated encounter notes This section contains the clinical notes associated to the Encounter. Date/Time Encounter Note(s) Provider Source August 06, 2024 02:03 PM ADDENDUM: LOCAL TITLE: Addendum STANDARD TITLE: ADDENDUM DATE OF NOTE: AUGUST 06, 2024@14:03:55 ENTRY DATE: AUGUST 06, 2024@14:03:56 AUTHOR: LYNN ALCOCER EXP COSIGNER: URGENCY: STATUS: COMPLETED is not aware of how she feels=please call her at [phone]- /es/ LYNN ALCOCER RN Signed: 08/06/2024 14:04 Receipt Acknowledged By: 08/06/2024 16:24 /rosette/ JOSHUA HILL --- Original Document --- 08/06/24 [facility] TELEPHONE NOTE: Time spent on phone call: 5 min Direct call from -she stated that she felt it was getting to the point she can not take of any longer-she said that today when transferring him to the BS he almost fell. She stated she is physically unable to do it much longer. Is wanting to discuss placement- /rosette/ LYNN ALCOCER RN Signed: 08/06/2024 14:03 [facility] August 06, 2024 02:01 PM TELEPHONE ENCOUNTE R NOTE: LOCAL TITLE: [facility] TELEPHONE NOTE STANDARD TITLE: TELEPHONE ENCOUNTER NOTE DATE OF NOTE: AUGUST 06, 2024@14:01 ENTRY DATE: AUGUST 06, 2024@14:01:48 AUTHOR: LYNN ALCOCER EXP COSIGNER: URGENCY: STATUS: COMPLETED [facility] TELEPHONE NOTE Has ADDENDA Time spent on phone call: 5 min Direct call from -she stated that she felt it was getting to the point she can not take of any longer-she said that today [place] [facility] [place] [facility] [place] almost fell. She stated she is physically unable to do it much longer. Is wanting to discuss placement- /rosette/ LYNN ALCOCER RN Signed: 08/06/2024 14:03 08/06/2024 ADDENDUM STATUS: COMPLETED is not aware of how she feels=please call her at [phone]- /rosette/ LYNN ALCOCER RN Signed: 08/06/2024 14:04 Receipt Acknowledged By: * AWAITING SIGNATURE * SERGIO,LYNN WEATHERS-D [facility]
--- OUTSIDE RECORDS SUMMARY | 2024-08-13 09:52 | XMS_ITS | Encounter Summary ---
Author Name [facility] [place] Address [address] [place] [address] Care Team Providers Care Flash Developer Name Role Phone YULISSA HENDERSON Primary Care [...] PLAN F Mar 24, 2014 PLAN F [id number] LUIS MANUEL PERDOMO PATIENT [facility] [place] PREFERRED PROVIDER ORGANIZAT ION (PPO) [facility] Sep 21, 2012 [id number] [phone] LUIS MANUEL PERDOMO PATIENT [employer] ([id number]) PRESCRIPT ION WL3A Sep 21, 2012 [id number] [id number] [phone] LUIS MANUEL PERDOMO PATIENT MEDICARE (WNR) MEDICARE (M) PART B Sep 21, 2012 PART B [id number] NOEMI PERDOMO PATIENT MEDICARE (WNR) MEDICARE (M) PART A Jan 22, 2011 PART A [id number] [phone] NOEMI PERDOMO PATIENT MEDICARE PART D (WNR) MEDICARE (M) PART D Mar 24, 2014 PART D [id number] LUIS MANUEL PERDOMO PATIENT Selected Encounter This section includes the information on record at [place] for the Encounter. Date/Time Encounter Type Encounter Description Reason Pro vider Source August 09, 2024 04:24 PM Outpatient Encounter ADMIN PAT ACTIVTIES (MASNONCT) IHE Encounter Template Text not used by [place] Plan of Treatment: Future Appointments (+ 6 months) and Future Tests (+/- 45 days) The Plan of Treatment section includes future care activities for the patient from all [place] treatmentfacilities. This section includes future appointments and future orders which are active, pending or scheduled. Future Appointments This section includes appointments that were scheduled to occur 6 months from the date of the Encounter, up to a maximum of 20 appointments. The data comes from all [place] treatment facilities. Appointment Date/Time Appointment Type Appointme nt Facility Name August 19, 2024 01:20 PM AMBULATORY - SURGERY [facility] Advance Directives: All historical and current Section Date Range: From patient's date of to the date document was created. This section includes ALL of a patient's completed or amended [place] Advance and Rescinded Directives. The entries below indicate that a directive exists for the patient, but an actual copy is not included with this document. The data comes from all [place] facilities. Date Advance Directives Provider Source Mar 08, 2024 ADVANCE DIRECTIVE DISCUSSION RUBIN HILL [facility] Encounter Notes: All associated encounter notes This section contains the clinical notes associated to the Encounter. Date/Time Encounter Note(s) Provider Source May 19, 2024 04:24 PM NONVA NOTE: LOCAL TITLE: OUTSIDE MEDICAL RECORD-FEE OUTPATIENT STANDARD TITLE: NONVA NOTE DATE OF NOTE: MAY 19, 2024@16:24 ENTRY DATE: AUGUST 09, 2024@16:25:05 AUTHOR: DIONY URIAS EXP COSIGNER: URGENCY: STATUS: COMPLETED The scanned document may be viewed in [employer]. /rosette/ DIONY URIAS PIPE COREMAKER Signed: 08/09/2024 16:25 [facility]
--- OUTSIDE RECORDS SUMMARY | 2024-08-13 09:52 | XMS_ITS ---
Author Name [facility] [place] Address [address] [place] [address] Care Team Providers Care Exhauster Name Role Phone YULISSA HENDERSON Primary Care [...] PLAN F Mar 24, 2014 PLAN F [id number] LUIS MANUEL PERDOMO PATIENT [facility] [place] [employer] PREFERRED PROVIDER ORGANIZAT ION (PPO) [facility] Sep 21, 2012 [id number] LUIS MANUEL PERDOMO PATIENT [employer] ([id number]) PRESCRIPT ION WL3A Sep 21, 2012 [id number] [id number] [phone] LUIS MANUEL PERDOMO PATIENT MEDICARE (WNR) MEDICARE (M) PART B Sep 21, 2012 PART B [id number] [phone] NOEMI PERDOMO PATIENT MEDICARE (WNR) MEDICARE (M) PART A Jan 22, 2011 PART A [id number] NOEMI PERDOMO PATIENT MEDICARE PART D (WNR) MEDICARE (M) PART D Mar 24, 2014 PART D [id number] LUIS MANUEL PERDOMO PATIENT Selected Encounter This section includes the information on record at [place] for the Encounter. 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 This section includes future appointments and future orders which are active, pending or scheduled. Future Appointments This section includes appointments that were scheduled to occur 6 months from the date of the Encounter, up to a maximum of 20 appointments. The data comes from all [place] treatment facilities. Appointment Date/Time Appointment Type Appointme nt Facility Name August 19, 2024 01:20 PM [facility] Advance Directives: All historical and current Section Date Range: From patient's date of to the date document was created. This section includes ALL of a patient's completed or amended CT Advance and Rescinded Directives. The entries below indicate that a directive exists for the patient, but an actual copy is not included with this document. The data comes from all [place] facilities. Date Advance Directives Provider Source Mar 08, 2024 ADVANCE DIRECTIVE DIS[facility] Encounter Notes: All associated encounter notes This section contains the clinical notes associated to the Encounter. Date/Time Encounter Note(s) Provider Source August 06, 2024 10:37 AM PHARMACY HOME [facility] E & M NOTE: LOCAL TITLE: HB PHARMACY NOTE STANDARD TITLE: PHARMACY HOME HEALTH E & M NOTE DATE OF NOTE: AUGUST 06, 2024@10:37 ENTRY DATE: AUGUST 06, 2024@10:37:06 AUTHOR: JANAE CEJA EXP COSIGNER: URGENCY: STATUS: COMPLETED PMH: [...] MEALS Indication: FOR NASAL ALLERGIES 7) UNDERPAD,BED [id number] TRANQUILITY-2710 USE UNDERPAD ACTIVE DIRECTED THREE TIMES [...] Dave Diamond *NonVA PCP Bertha Allen in [place] New therapies/medication changes since last Pharmacy review: [...] made Discontinue or remove medication /es/ Janae Ceja PharmVivianeD. Clinical Pharmacist - PAULETTE Signed: 08/06/2024 10:50 Receipt Acknowledged By: 08/06/2024 11:03 /es/ LYNN ALCOCER RN 08/06/2024 10:57 /es/ YULISSA HENDERSON APRN ADVANCED PRACTICE REGISTERED NURSE, JANAE KASPER-CDD [facility]
--- OUTSIDE RECORDS SUMMARY | 2024-08-13 09:52 | XMS_ITS | Data Portability ---
Author Organization [facility] [place] & KEELY Dawson ADMIN Address [address] [place] [id number] Assessment No assessment recorded. Plan of Treatment Reminders Order Date Submit Date Provider Last Modified By Organization Details Last Modified Time Details Appointments None recorded. Lab urinalysis , dipstick 2022 023 [facility] Not available 12:25:51 culture, urine 2022 023 [facility] (Lab Registration) , [address] [place] [address], [id number], 3 12:25:51 Referral None recorded. Procedures None recorded. Surgeries None recorded. Imaging None recorded. Medication Orders ciprofloxa ann-marie 500 mg tablet 2022 023 [facility], [address] [place] [address], [address], 3 14:13:24 Ciprodex 0.3 %-0.1 % ear drops,susp ension 2021 022 [facility], [address] [place] [address], [address], 2 09:50:14 doxycyclin e hyclate 100 mg tablet 2021 022 [facility], [address] [place] [address], [address], 3 14:09:10 Patient TargetsNo targets recorded. Patient InstructionsNo instructions recorded. Reason for Referral None Reported. Results Created Date Observation Date Name Description Value Unit Range Abnormal Flag Note LastModifiedBy Organization Detail LastModifiedTime 06/11/19 23 06/10/2022 CULTU RE URINE results LT 06-11 633 >100, 000 COL/M L Gram Posit rani Cocci Not Available [facility] (Lab Registration) [address], [place], [address], 06/11/2022 06:35:52 06/11/19 23 06/10/2022 CULTU RE URINE note Unles s other junior noted testi ng perfo rmed at: [facility] [address] [place] [address] [phone] Benedicto mccann MD CLIA: [id number] Not Available [facility] (Lab Registration) [address], [place], [address], 06/11/2022 06:35:52 06/11/19 23 06/10/2022 CULTU RE URINE culccur ===== ===== ===== ===== ===== ===== ===== ===== ===== ===== ===== ===== ===== ===== ===== ===== ===== ===== ===== ===== ===== ===== ===== ===== Speci men NO.: [id number] Exam Statu s: Final Proce dure: [...] L Gram Posit rani Cocci Not Available [facility] (Lab Registration) [address] , [place], [address], 06/12/2022 07:59:18 06/11/19 23 06/10/2022 CULTU RE URINE note Unles s other junior noted testi ng perfo rmed at: [facility] [address] [place] [address] [phone] Benedicto mccann MD CLIA: [id number] Not Available [facility] (Lab Registration) [address] , [place], [address], 06/12/2022 07:59:18 06/11/19 23 06/10/2022 urina lysis , dipst ick Leukocytes (reference range) small Not Available [address], [address], 06/10/2022 09:58:29 06/11/19 23 06/10/2022 urina lysis , dipst ick Nitrite (reference range:) positi ve Not Available [address], [address], 06/10/2022 09:58:29 06/11/19 23 06/10/2022 urina lysis , dipst ick Urobilinogen (reference range) 2 Not Available [address], [place], [address], 06/10/2022 09:58:29 06/11/19 23 06/10/2022 urina lysis , dipst ick Protein (reference range) negati ve Not Available [address], [address], 06/10/2022 09:58:29 06/11/19 23 06/10/2022 urina lysis , dipst ick pH (reference range 5-8.5) 7.0 Not Available [address], [address], 06/10/2022 09:58:29 06/11/19 23 06/10/2022 urina lysis , dipst ick Blood (reference range:) negati ve Not Available [address], [place], [address], 06/10/2022 09:58:29 06/11/19 23 06/10/2022 urina lysis , dipst ick Specific [place] (reference range) 1.015 Not Available [address], [address], 06/10/2022 09:58:29 06/11/19 23 06/10/2022 urina lysis , dipst ick Ketone (reference range) negati ve Not Available [address], [address], 06/10/2022 09:58:29 06/11/19 23 06/10/2022 urina lysis , dipst ick Bilirubin (reference range) negati ve Not Available [address], [address], 06/10/2022 09:58:29 0306/10/2022 urina lysis , dipst ick Glucose (reference range) negati ve Not Available [address], [address], 06/10/2022 09:58:29 06/11/1906/10/2022 urina lysis , dipst ick Color (reference range: yellow-brown ) Yellow Not Available [address], [address], 06/10/2022 09:58:29 Result Notes None recorded. Medical [...] Updated DateTime 2 175.26 cm 36.4 kg/m2 993331. 16 g 97.5 [degF] 97 % 97 % 64 /min 18 /min 152 mm[Hg] 69 mm[Hg] Ana [facility] - [facility] [place] 2 09:26:07 Social History Question Answer Notes LastModified by Organizat ion Details LastModified Time Tobacco Smoking Status Never Smoker Not Available [facility] 06/11/2022 16:08:24 What Is Your Level Of Caffeine Consumption? None CHART_MERGE Information not available 06/11/2022 Has Tobacco Cessation Counseling Been Provided? No CHART_MERGE Information not available 06/11/2022 Sex: Unknown Functional Status Question Answer Note LastModified by Organizat ion Details LastModified Time Do you use any illicit or recreational drugs? No CHART_MERGE Information not available 06/11/2022 Do you or have you ever used any other forms of tobacco or nicotine? No CHART_MERGE Information not available 06/11/2022 What is your level of alcohol consumption? None CHART_MERGE Information not available 06/11/2022 Mental Status None recorded. Family History Nothing Reported. Medical History No medical history recorded. Immunizations Vaccine Type Date Status Note Provider Nam e and Address Organization Details Recorded Time Influenza, injectable,rosemarie valent, preservative free, pediatric 1 completed Not Available [facility] 06/11/2022 16:08:25 Influenza, split virus, quadrivalent, preservative 0 completed Not Available [facility] 06/11/2022 16:08:25 Influenza, adjuvanted, trivalent, PF 9 completed Not Available [facility] 06/11/2022 16:08:25 Influenza, high-dose, quadrivalent, PF 2 completed Ana Villagran [facility] & [place] 01/25/2022 10:04:21 Past Encounters Encounter ID Performer Location Encounter Start Date Encounter Closed Date Diagnosis/Indication Diagnosis SNOMED-CT Code Diagnosis ICD10 Code Diagnosis Note [id number] Marcelino Mobley MD [address] [address] 01/25/2022 09:11:20 01/28/2022 11:29:19 Administration of influenza vaccine 05820139 Z23 Acute sero us otitis media of right ear 0889161094 460399 H65.01 [id number] PASQUALE ROBERT NP [address] [address] 06/10/2022 09:41:28 06/10/2022 10:01:08 Acute cystitis 32827787 N30.00 Health Concerns Section Related Observation LastModified by Organization Detai ls LastModified Time None Recorded Concern Status LastModified by Organization Details LastModified Time None Recorded Advance Directives Directive None Recorded Payers Insurance Date Sequence Insurance Name Policy Number Policy Munoz Covered Member ID Munoz Member ID Guarantor Name 10/11/2023 1 [place] David Hughes [place] [id number] David Hughes [place] 10/11/2023 2 [employer] - OPTIONS Med Hughes [place] [id number] David Hughes [place] 10/11/2023 1 [place] David Hughes [place] [id number] David Hughes [place] 10/11/2023 2 [employer] (MEDICARE SUPPLEMENT) Med Hughes [place] [id number] David Hughes [place] Notes Date Note Type Note Provider Name and Address Organization Details Recorded Time 01/25/2022 text/html Patient presents complaining of right ear pain. Marcelino Mobley MD [address] [place] [address], [phone] & [place] 01/25/2022 12:39:29
[2024-08-13] MEDS: 0.9 % SODIUM CHLORIDE 1000ML 1,000 ML 999 ML IV (10:07)
--- NOTE | 2024-08-13 10:07 | XR_ITS ---
FINAL REPORT CLINICAL HISTORY: WHEEZING COMPARISON: None FINDINGS: There is airspace disease at the bilateral lung bases consistent with pneumonia. No pleural effusions are noted. The upper lobes are clear. There is no evidence of pneumothorax. Mediastinum is unremarkable. Heart size is normal. IMPRESSION: Bibasilar pneumonia. Reviewed, Interpreted and Dictated by Keith Shaver MD Transcribed by Martha Plasencia Authenticated and [facility]
--- NOTE | 2024-08-13 10:11 | PC.NURSE ---
OT at bedside
--- NOTE | 2024-08-13 10:11 | PC.NURSE ---
I rounded on the pt and removed him from the bedpan. pt was unable to urinate or have a BM. pt has no new complaints. no needs voiced. call ford in reach.
--- NOTE | 2024-08-13 10:52 | HMH.PHAINT1 ---
Pharmacy Intervention Comments: MEDICATION RECONCILIATION COMPLETED ON PATIENT USING EXTERNAL FILL HISTORY FROM PHARMACY. -MONET ANTHONY, KHANHD
--- NOTE | 2024-08-13 11:02 | HMH.PTEV ---
Physical Therapy Evaluation Rehab PT IP Evaluation Start: 08/13/24 09:30 Freq: ONCE Status: Active Protocol: Document 08/13/24 10:56 [facility] (Rec: 08/13/24 11:02 [facility] [id number]) Subjective/History History History Pt is a 79 y/o male who presents to [facility] ED with his present. Pt with complaints of generalized weakness and difficulty with mobility. Subjective Subjective PLOF: Ambulating short distances with RW. Primarily using w/c now. Requires assistance from for bed mobility, transfers, dressing, bathing, and w/c mobility. Home: Lives with . Owns shower chair, hospital bed, lift chair, RW, and w/c. Available assistance: available to assist but is finding it difficult to continue caring for pt d/t the increasing physical demand. New diagnosis of cancer in past 12 No [address]? [facility] How much help from another person do you currently need... Turning from your back to your side A lot while in a flat bed without using bedrails? Moving from lying on back to sitting on A lot the side of a flat bed without using bedrails? Moving to and from a bed to a chair ( A lot including a wheelchair)? Standing up from a chair using your arms A lot ? (e.g., wheelchair, bedside chair) Walking in hospital room? Total Climbing 3-5 steps with a railing? Total Mobility Score 10 Mobility Level [facility] Mobility Calculator Mobility 4 Move to chair/ commode Rehab PT IP Eval Objective Appearance Patient Behavior Appropriate,Cooperative Patient Orientation Person,Place,Situation Difficulty following instructions none Speech Pattern Clear Ambulation Patient Able to Ambulate No Balance Ability to Arise Unable Sitting Balance Leans or slides in chair Transfers Bed Transfer Ability Maximum x 2 (75% assist) Rehab PT IP prob,goals,plan Problems Date of Evaluation: 08/13/24 PT IP Problems Bed Mobility,Transfers,Gait, Balance,Self care,Safety Rehab Potential Rehab Potential Good Plan PT Intervention Plan Bed Mobility,Transfers,Gait, Balance,Self care,Safety, Therapeutic Exercise Other Intervention Plan 1-2 times PT Plan Frequency Daily Duration LOS Discharge Goals Bed Transfer Ability Maximum x 1 (75% assist) Sit to Stand Chair Transfer Ability Maximum x 1 (75% assist) Discharge Plan PT Discharge Plan Initial physical therapy evaluation performed. Patient presents below baseline at this time in functional mobility, transfers, and strength. Pt not safe to return home at this time d/t current level of functional mobility. PT recommending short-term rehabilitation stay upon d/c from [facility] to address mobility deficits and decrease caregiver burden. Pt would benefit from skilled PT while at [facility] to prevent further functional decline and maximize safety with mobility. Eval Complexity Eval Charge Codes 95853 - Moderate Complexity PHYSICIAN CERTIFICATION: I certify the specified therapy services for Med Chung are required, authorized, and reviewed every 30 days.
--- NOTE | 2024-08-13 11:03 | HMH.OTEV ---
OT Inpatient Evaluation Rehab OT IP Evaluation Start: 08/13/24 09:30 Freq: ONCE Status: Active Protocol: Document 08/13/24 10:58 [facility] (Rec: 08/13/24 11:03 [facility] [id number]) Rehab OT IP Assessment Subjective History Pt oriented x 3 on arrival. Pt's present and supportive. Pt came to ER today due to generalized weakness. History and physical: Med Chung is a 79-year- old male with a past medical history of multiple sclerosis, hypertension, hyperlipidemia, COPD, prostate cancer who presents to the emergency department for complaints of generalized weakness and overall not feeling well. Patient was treated for urinary tract infection on the and finished a 10-day course of antibiotics yesterday. He reports that he is incontinent at baseline and has had had no change to that recently. He reports some diarrhea but notes that this is more chronic and he alternates between diarrhea and constipation. He denies any fevers or cough. His at bedside states that he seemed to be wheezing some this morning. They deny any fevers. They report that over the last 5 days, he has had increasing difficulty walking. They state that he normally uses a walker but does use his rollator recently and has had increased difficulty with ambulating. Subjective Pt's and pt reports within the past few months/ weeks pt has become progressively weaker. He is now requiring assistance with all ADLs. He is unable to complete functional transfers with walker like he used to. He is now requiring a wheelchair for functional transfers. Pt is dependent upon for all IADLs. Objective Patient Orientation Person,Place,Birthday Right Upper Extremity Gross ROM Min Limitation <25% Left Upper Extremity Gross ROM Min Limitation <25% Shoulder ROM Limitations Muscle Weakness Elbow ROM Limitations Muscle Weakness Wrist Limitations of Range of Motion Muscle Weakness Bed Mobility bed mobility-scooting,bed mobility - supine/sit Assist Level Maximum x 2 (75% assist) Rehab OT IP prob,goals,plan Problems Date of Evaluation: 08/13/24 OT IP Problems Bed Mobility,Transfers,Balance ,Self care,Safety Rehab Potential Rehab Potential Good Equipment Needs Assistive Devices Rolling / Wheeled Walker Plan OT intervention Plan Bed Mobility,Transfers,Balance ,Self care,Safety,Therapeutic Exercise OT Plan Frequency Daily Duration LOS Discharge Goals Bed Mobility Ability Assistance x1 Sit to Stand Chair Transfer Ability Maximum x 1 (75% assist) Chair Transfer Ability Maximum x 1 (75% assist) Chair Transfer Technique Stand Step Pivot Chair Transfer Assistive Devices Rolling Walker Feeding Ability Assist with Tray Set Up Lower Body Dressing Ability Maximum Assistance Upper Body Dressing Ability Moderate Assistance Performing Toilet Hygiene Ability Maximum Assistance Overall Commode/Toilet Transfer Ability Maximum Assistance Commode/Toilet Transfer Technique Stand Step Pivot Discharge Plan OT Discharge Plan Pt will continue to be seen for OT services while at [facility]. Pt would benefit most from short term rehab at SNF following discharge from hospital. Continued skilled therapy is important in order for patient to improve strength, safety, endurance, ADL independence, and functional transfers to reach PLOF and decrease burden of care on . Eval Complexity Eval Charge Codes 59828 - Moderate Complexity PHYSICIAN CERTIFICATION: I certify the specified therapy services for Med Chung are required, authorized, and reviewed every 30 days.
--- NOTE | 2024-08-13 11:14 | PC.NURSE ---
male purewick placed at this time
--- NOTE | 2024-08-13 11:34 | PC.NURSE ---
report called to sameera on second floor
[2024-08-13] MEDS: AZITHROMYCIN 500 MG in 0.9 % SODIUM CHLORIDE 250 ML 250 MG IV (11:45)
[2024-08-13 11:50] LABS: Microscopic, Urine URINE MICROSCOPIC (MICROSCOPIC)
--- NOTE | 2024-08-13 11:55 | PC.NURSE ---
arrived by stretcher from ED
[2024-08-13 12:03] LABS: Appearance,Urine CLEAR (Clear); Bilirubin,Urine Negative (Negative); Blood, Urine Negative (Negative); Color,Urine YELLOW (Yellow); Glucose,Urine (UA) Negative (Negative); Ketones,Urine Negative (Negative); Leukocyte Esterase,Urine 1+ (Negative); Nitrate,Urine Negative (Negative); Protein,Urine TRACE (Negative); Urobilinogen,Urine 0.2 EU/dl (0.2)
[2024-08-13 12:20] LABS: Bacteria,Urine Trace /lpf; Squamous Epithelial Cell,Urine Occasional #/hpf (0-5)
[2024-08-13 14:43] LABS: HIV Combo NEGATIVE (Negative)
[2024-08-13 14:51] LABS: Hepatitis C Ab Qual. W/ RFX NEGATIVE (Negative)
[2024-08-13] MEDS: CEFEPIME HCL 2 GM in 0.9 % SODIUM CHLORIDE 100 ML IV ×2 (14:57→22:10)
[2024-08-13 15:23] LABS: POC Glucose,Bedside 141 (70-110)
[2024-08-13] MEDS: ACETAMINOPHEN 325MG TAB 650 MG PO (17:27)
--- NOTE | 2024-08-13 17:33 | P.HP_ITS ---
History of Present Illness *Admission Date: 08/13/24 *Reason for visit:: Lower extremity weakness *History of present illness: Med Chung is a 75-year-old male with a medical history significant for multiple sclerosis, type 2 diabetes, hypertension who presents with progressive lower extremity weakness. He states he has had issues with knees for a long time and has had left TKR with now his right knee [id number]. Over the past few days he has had difficulty with ambulation due to lower extremity weakness, and today he was unable to get up from a chair due to weakness. Patient just finished 2-week course of cefuroxime UTI yesterday. Denies fever/chills, chest pain, shortness of breath, abdominal pain, urinary symptoms. On my evaluation, he has bilateral 4/5 strength in lower extremities. No radiculopathy, having bowel movements. CBC, CMP relatively unremarkable. UA is suggestive of UTI. CXR suggestive of bibasilar pneumonia. No leukocytosis, fevers. Case discussed with ED provider and she was made to admit patient for lower extremity weakness, pneumonia, functional decline. [facility] Disclaimer: The information contained in this section may have been updated after the patient was seen, as this information can be updated by other users. Medical History (Updated 08/13/24 @ 17:51 by Chas Sigala MD) Diabetes mellitus, type 2 Soft tissue mass Hyponatremia Mass of parotid gland Skin lesions Decreased hearing Anemia Screening for lung cancer Tobacco use Spastic paraparesis Enlarged prostate Macular degeneration Prostate CA GERD (gastroesophageal reflux disease) Diabetes Hypertension Hyperlipidemia Multiple sclerosis Chronic pain [place] COPD (chronic obstructive pulmonary disease) Fracture of right fibula Surgical History History of knee replacement procedure of left knee History of prostate surgery History of appendectomy Family History Other Family history of COPD (chronic obstructive pulmonary disease) Family history of diabetes mellitus type II Family history of hyperlipidemia Family history of hypertension Prostate cancer Social History (Updated 08/13/24 @ 12:16 by Kari Perea RN) Smoking Status: Former smoker tobacco type: cigarettes smoking status stop date: 2020 alcohol intake: current alcohol intake frequency: holidays/special occasions only current occupational status: other Travel in the last 8 weeks?: None Have you lived/traveled outside [place] in past 30 days?: No Contact w/someone who lives/traveled outside US past 30 days?: No Exposure to someone with infectious disease in past 14 days?: No Do you have a fever (greater than 100.4 F or 38 C)?: No Have you tested positive for COVID-19?: No Exposed to someone with COVID-19 in past 14 days?: No Do you have a sore throat?: No Do you have a cough?: Yes Do you have any weakness?: Yes Are you experiencing any nausea/vomitting?: No Do you have any diarrhea?: No Are you experiencing any unusual bleeding?: No Do you have any muscle aches/pain?: No Do you have any abdominal pain?: No Are you experiencing loss of taste or smell?: No Other Medical History Have you received the Flu Vaccine for this season: Yes Have you received the Pneumonia Vaccine: Yes Meds Home Medications and Allergies Home Medications ?Medication ?Instructions ?Recorded ?Confirmed ?Type aspirin 81 mg tablet 81 mg PO DAILY 01/11/24 08/13/24 History cholecalciferol (vitamin D3) 50 2,000 unit PO BID 01/11/24 08/13/24 History mcg (2,000 unit) capsule (Vitamin D3) metformin 500 mg 24 hr 500 mg PO DAILY 01/11/24 08/13/24 History tablet,extended release (gastric retention) silodosin 8 mg capsule 8 mg PO DAILY 01/11/24 08/13/24 History methenamine hippurate 1 gram tablet 1 g PO BID 01/12/24 08/13/24 History vitamins A,C,E-rcih-bhtyrc 2,148 1 tab PO BID 01/12/24 08/13/24 History mcg-113 mg-45 mg-17.4 mg tablet (PreserVision AREDS) bisoprolol fumarate 5 mg tablet 5 mg PO DAILY 01/20/24 08/13/24 History famotidine 20 mg tablet 20 mg PO BID #60 tabs 03/15/24 08/13/24 Rx cyanocobalamin (vitamin B-12) 1,000 mcg PO DAILY 07/19/24 08/13/24 History 1,000 mcg capsule lisinopril 5 mg tablet 5 mg PO DAILY #30 tabs 08/05/24 08/13/24 Rx atorvastatin 20 mg tablet 20 mg PO HS 08/13/24 08/13/24 History gabapentin 100 mg capsule 200 mg PO QID 08/13/24 08/13/24 History polyethylene glycol 3350 17 17 g PO DAILY 08/13/24 08/13/24 History gram/dose oral powder (Miralax) vitamin E 400 unit tablet 400 unit PO DAILY 08/13/24 08/13/24 History New Prescriptions to Start Prescriptions: Allergies Allergy/AdvReac Type Severity Reaction Status Date / Time No Known Allergies Allergy Verified 07/19/24 13:22 Exam Data for Last 24 hours Vital signs and Labs for Last 24 Hours: Temp Pulse Resp BP Pulse Ox O2 Del Method 98.2 F 62 20 188/85 H 96 Room Air 08/13/24 16:00 08/13/24 16:00 08/13/24 16:00 08/13/24 16:00 08/13/24 16:00 08/13/24 16:00 Laboratory Results - last 24 hr 08/13/24 09:23: WBC 9.1, RBC 4.34 L, Hgb 12.2 L, Hct 36.3 L, MCV 83.6, MCH 28.1, MCHC 33.6, RDW 13.8, Plt Count 255, MPV 10.2, Neut % (Auto) 60.1, Lymph % (Auto) 17.9, [place] % (Auto) 6.8, Eos % (Auto) 14.7 H, Baso % (Auto) 0.4, Neut # (Auto) 5.4, Lymph # (Auto) 1.6, [place] # (Auto) 0.6, Eos # (Auto) 1.3 H, Baso # (Auto) 0.0, PT 13.5 H, INR 1.24 H, Sodium 122 L, Potassium 4.4, Chloride 92 L, Carbon Dioxide 26, Anion Gap 8.4, BUN 13, Creatinine 0.80, Estimated Creat Clear 98, Estimated GFR 93, Est GFR ( Amer) 113, Glucose 128 H, Calcium 8.6, Magnesium 1.8, Total Bilirubin 0.9, AST 19, ALT 18, Alkaline Phosphatase 117, Total Protein 5.9 L, Albumin 3.3 L, Globulin 2.6, Albumin/Globulin Ratio 1.3, HCV Ab WALTER w/Rflx PCR Qn Negative, HIV Ag/Ab Combo Qual Negative 08/13/24 11:47: Urine Color Yellow, Urine Appearance Clear, Urine pH 6.0, Ur Specific [place] 1.010, Urine Protein Trace, Urine Glucose (UA) Negative, Urine Ketones Negative, Urine Blood Negative, Urine Nitrate Negative, Urine Bilirubin Negative, Urine Urobilinogen 0.2, Ur Leukocyte Esterase 1+ A, Urine RBC None, Urine WBC 5-10, Ur Squamous Epith Cells Occasional, Urine Bacteria Trace 08/13/24 15:15: POC Glucose 141 H I & O for Last 24 hours: Intake & Output 08/10/24 08/11/24 08/12/24 08/13/24 23:59 23:59 23:59 23:59 Intake Total 550 / 550 Balance 550 / 550 Weight 107.161 kg Constitutional Constitutional: no acute distress *Routine HEENT Exam Head: Present normocephalic Eye: Present EOMI and PERRL ENT: Present mucous membranes moist *Routine Neck Exam Neck: Present supple; Absent lymphadenopathy *Routine Respiratory Exam Respiratory: Present CTA bilaterally *Routine Cardiovascular Exam Cardiovascular: Present RRR *Routine Abdominal Exam Abdominal: Present soft and normoactive bowel sounds; Absent tenderness *Routine Rectal Exam Rectal:: deferred *Routine Genitalia Exam Genitalia:: deferred *Routine Extremities Exam Extremities: Absent cyanosis, clubbing or edema Comments: Bilateral lower extremity motor strength 4/5. *Routine Skin Exam Skin: Present warm; Absent rash *Routine Neurological Exam Neurological: Present alert and oriented X3 Assessment and Plan *Assessment and plan (1) Lower extremity weakness: Status: Acute Category: Medical Code(s): R29.898 - Other symptoms and signs involving the musculoskeletal system Plan Med Chung is a 75-year-old male with a medical history significant for multiple sclerosis, type 2 diabetes, hypertension who presents with progressive lower extremity weakness. He states he has had issues with knees for a long time and has had left TKR with now his right knee [id number]. Over the past few days he has had difficulty with ambulation due to lower extremity weakness, and today he was unable to get up from a chair due to weakness. Patient just finished 2-week course of cefuroxime UTI yesterday. Denies fever/chills, chest pain, shortness of breath, abdominal pain, urinary symptoms. On my evaluation, he has bilateral 4/5 strength in lower extremities. No radiculopathy, having bowel movements. CBC, CMP relatively unremarkable. UA is suggestive of UTI. CXR suggestive of bibasilar pneumonia. No leukocytosis, fevers. Case discussed with ED provider and she was made to admit patient for lower extremity weakness, pneumonia, functional decline. #Lower extremity weakness #Functional decline #Multiple sclerosis #Pneumonia #Advanced right knee osteoarthritis, history of left knee TKR #History of right lateral malleolus fracture ? Progressive lower extremity weakness. 4/5 strength bilaterally. No focal deficits. ? Etiology is uncertain at this time, due to complex cardiac history. Patient does have underlying pneumonia which could be contributing. ? Also has history of MS, and the weakness has been progressive. However, has not had specific events/MS flare like this in the past requiring high-dose steroid therapy which one would expect to have happened by this age. Will obtain neurology records from [place] and allow treatment of pneumonia before considering high-dose steroids for possible MS flare. ? Lower suspicion for spinal issues or Guillain-Truner? syndrome, as no back pain, radiculopathy, fevers. However we will consider further workup for this if symptoms do not improve. ? PT/OT consulted, recommended SNF. Case management assisting with placement. ? Follow-up TSH, B12, folate, iron studies. #Community-acquired bibasilar pneumonia ? Evidenced on CXR, though no leukocytosis or signs of sepsis. ? Started cefepime, doxycycline day 1. ? Follow-up sputum, blood cultures. ? Follow-up CBC in the morning. #Abnormal UA ? Has been on 14-day course of cefuroxime for UTI finished day before admission. UA still grossly abnormal. ? Follow-up urine culture. ? Continue antibiotics as above. #Type 2 diabetes ? Continue home metformin. ? Reduce gabapentin to 200 mg 3 times daily due to concern of weakness. #Hypertension ? Continue home bisoprolol, lisinopril. Full code DVT prophylaxis: Lovenox 40 mg
[2024-08-13 18:40] LABS: Chloride 97 mmol/L (98-107)
[2024-08-13 18:41] LABS: Potassium 4.2 mmoL/L (3.5-5.1)
[2024-08-13 18:43] LABS: Blood Urea Nitrogen 13 mg/dl (9-20); Creatinine Clearance Estimated 92 mL/min (50-200); Estimated Glomerular Filt Rate 109 ml/min (>60); GFR (African American) 132 ML/MIN (>60)
[2024-08-13 18:44] LABS: Carbon Dioxide 22 mmol/L (22.0-30.0); Glucose 136 mg/dl (74-100)
[2024-08-13 18:51] LABS: Anion Gap 6.2 mEq/L (5-15); Sodium 121 mmol/L (136-145)
[2024-08-13] MEDS: FAMOTIDINE 20MG TABLET 20 MG PO (21:48)
[2024-08-13] MEDS: GABAPENTIN 100MG CAPSULE 200 MG PO (21:48)
[2024-08-13] MEDS: ATORVASTATIN 20MG TABLET 20 MG PO (21:49)
[2024-08-13] MEDS: DOXYCYCLINE HYCL 100 MG TABLET PO (21:58)
[2024-08-14 04:00] VITALS: BP 164/82; PULSE 75; RESP 16; TEMP 36.8; O2SAT 95; BMI 35.4
--- NOTE | 2024-08-14 04:55 | PC.NURSE ---
v/s, ox4. blood glucose monitored. Q2 turns. No acute events to report. Plan of care ongoing.
[2024-08-14] MEDS: CEFEPIME HCL 2 GM in 0.9 % SODIUM CHLORIDE 100 ML IV ×3 (06:20→22:06)
[2024-08-14 07:26] LABS: Basophils % 0.2 % (0.1-2.0); Eosinophils # 1.3 Kmm3 (0.0-0.4); Eosinophils % 15.4 % (0.1-12.0); Hematocrit 30.9 % (42.0-52.0); Immature Granulocytes # 0.01 10^3uL; Immature Granulocytes % 0.1 %; Lymphocytes # 1.6 K/mm3 (0.7-4.5); Lymphocytes % 19.5 % (10-50); Mean Corpuscular HGB Conc 34.3 g/dL (31.8-35.4); Mean Corpuscular Hemoglobin 28.3 pg (27.0-31.2); Mean Corpuscular Volume 82.4 fl (80-94); Mean Platelet Volume 9.9 fl (7.4-10.4); Monocytes # 0.6 K/mm3 (0.1-1.0); Monocytes % 7.4 % (1.7-9.3); Neutrophils # 4.8 K/mm3 (1.8-7.8); Neutrophils % 57.4 % (37.0-80.0); Nucleated Red Blood Cells # 0 10^3/uL; Nucleated Red Blood Cells % 0 %; Platelet Count 242 K/mm3 (142-424); Red Blood Count 3.75 M/mm3 (4.60-6.20); Red Cell Distribution Width 13.6 % (11.5-17.5); Red Cell Distribution Width-SD 41.2 fL; White Blood Count 8.3 K/mm3 (4.8-10.8)
[2024-08-14 07:37] LABS: Alanine Aminotransferase 14 U/L (12-78); Albumin Level 2.8 g/dl (3.5-5.0); Albumin/Globulin Ratio 1.1 (1.1-1.8); Alkaline Phosphatase 117 U/L (38-126); Anion Gap 8.2 mEq/L (5-15); Aspartate Amino Transferase 21 U/L (17-59); Bilirubin,Total 0.8 mg/dl (0.2-1.3); Blood Urea Nitrogen 11 mg/dl (9-20); Calcium 8.1 mg/dl (8.4-10.2); Carbon Dioxide 24 mmol/L (22.0-30.0); Chloride 96 mmol/L (98-107); Creatinine Clearance Estimated 93 mL/min (50-200); Estimated Glomerular Filt Rate 109 ml/min (>60); GFR (African American) 132 ML/MIN (>60); Globulin 2.6 g/dL (1.3-3.2); Glucose 106 mg/dl (74-100); Magnesium 1.8 mg/dl (1.6-2.3); Potassium 4.2 mmoL/L (3.5-5.1); Sodium 124 mmol/L (136-145); Total Protein,Serum 5.4 g/dl (6.3-8.2)
[2024-08-14 08:00] VITALS: BP 196/93; PULSE 75; RESP 22; TEMP 36.8; O2SAT 94
[2024-08-14 08:47] LABS: Hemoglobin 10.6 g/dL (14.1-18.0)
[2024-08-14] MEDS: ASPIRIN EC 81MG TABLET 81 MG PO (08:50)
[2024-08-14] MEDS: ENOXAPARIN 40MG/0.4ML SYRINGE 40 MG SUBCUT (08:50)
[2024-08-14] MEDS: POLYETHYLENE GLYCOL 3350 17 GM PACKET PO (08:50)
[2024-08-14] MEDS: FAMOTIDINE 20MG TABLET 20 MG PO (08:51)
[2024-08-14] MEDS: BISOPROLOL 5MG TABLET 5 MG PO (08:51)
[2024-08-14] MEDS: METFORMIN 500MG TABLET 500 MG PO (08:51)
[2024-08-14] MEDS: GABAPENTIN 100MG CAPSULE 200 MG PO ×2 (08:51→12:42)
[2024-08-14] MEDS: LISINOPRIL 5MG TABLET 5 MG PO (08:51)
[2024-08-14] MEDS: SODIUM CHLORIDE 1,000MG TABLET 1000 MG PO ×2 (08:57→12:42)
[2024-08-14] MEDS: DOXYCYCLINE HYCL 100 MG TABLET PO (08:58)
[2024-08-14] MEDS: METHENAMINE HIPPURATE 1 GM 1 EACH PO (10:06)
[2024-08-14] MEDS: SILODOSIN 8 MG 8 EACH PO (10:08)
[2024-08-14] MEDS: SODIUM CHLORIDE 3% 15ML NEB 3 ML IH (10:17)
[2024-08-14 10:18] VITALS: PULSE 72; RESP 14
[2024-08-14 10:35] LABS: Procalcitonin 0.067 ng/mL (0.0-2.0)
[2024-08-14 12:10] LABS: Iron 29 ug/dL (49-181)
[2024-08-14 12:20] LABS: Total Iron Binding Capacity 213 ug/dL (261-462)
[2024-08-14 12:42] LABS: Thyroid Stimulating Hormone 0.49 uIU/mL (0.465-4.68)
[2024-08-14 12:46] LABS: Ferritin 125 ng/ml (17.9-464)
[2024-08-14 15:39] LABS: Vitamin B12 971 pg/mL (239-931)
--- NOTE | 2024-08-14 15:40 | PC.NURSE ---
Aox 4, turn every two hours, bed alarm active, on RA, on electrolyte replacement protocol, new iv 20g R UA ultrasound guided, on lovenox,, purewick in place, coccyx stage wound with picture in chart.
[2024-08-14 15:47] LABS: Folate 6.43 ng/mL
[2024-08-14 16:00] VITALS: BP 145/67; PULSE 74; RESP 22; TEMP 36.8; O2SAT 93
--- NOTE | 2024-08-14 18:00 | P.PN_ITS ---
Subjective *Date: 08/14/24 *Time: 18:00 Interval history: Patient continues to have lower extremity weakness, left greater than right. After speaking with , history and symptoms more suggestive of MS flare. Started high-dose Solu-Medrol therapy. Follow-up on response. Exam Data for Last 24 hours Vital signs and Labs for Last 24 Hours: Temp Pulse Resp BP Pulse Ox O2 Del Method 98.3 F 74 22 145/67 H 93 L Room Air 08/14/24 16:00 08/14/24 16:00 08/14/24 16:08/14/24 16:08/14/24 16:00 08/14/24 17:44 Laboratory Results - last 24 hr 08/13/24 11:47: Urine Color Yellow, Urine Appearance Clear, Urine pH 6.0, Ur Specific [place] 1.010, Urine Protein Trace, Urine Glucose (UA) Negative, Urine Ketones Negative, Urine Blood Negative, Urine Nitrate Negative, Urine Bilirubin Negative, Urine Urobilinogen 0.2, Ur Leukocyte Esterase 1+ A, Urine RBC None, Urine WBC 5-10, Ur Squamous Epith Cells Occasional, Urine Bacteria Trace 08/13/24 18:00: Sodium 121 L, Potassium 4.2, Chloride 97 L, Carbon Dioxide 22, Anion Gap 6.2, BUN 13, Creatinine 0.70, Estimated Creat Clear 92, Estimated GFR 109, Est GFR ( Amer) 132, Glucose 136 H, Calcium 8.0 L 08/14/24 07:10: WBC 8.3, RBC 3.75 L, Hgb 10.6 L D, Hct 30.9 L, MCV 82.4, MCH 28.3, MCHC 34.3, RDW 13.6, Plt Count 242, MPV 9.9, Neut % (Auto) 57.4, Lymph % (Auto) 19.5, [place] % (Auto) 7.4, Eos % (Auto) 15.4 H, Baso % (Auto) 0.2, Neut # (Auto) 4.8, Lymph # (Auto) 1.6, [place] # (Auto) 0.6, Eos # (Auto) 1.3 H, Baso # (Auto) 0.0, Sodium 124 L, Potassium 4.2, Chloride 96 L, Carbon Dioxide 24, Anion Gap 8.2, BUN 11, Creatinine 0.70, Estimated Creat Clear 93, Estimated GFR 109, Est GFR ( Amer) 132, Glucose 106 H D, Calcium 8.1 L, Magnesium 1.8, Iron 29 L, TIBC 213 L, Iron Saturation 13.91191 L, Ferritin 125 D, Total Bilirubin 0.8, AST 21, ALT 14, Alkaline Phosphatase 117, Total Protein 5.4 L, Albumin 2.8 L D, Globulin 2.6, Albumin/Globulin Ratio 1.1, Vitamin B12 971 H, Procalcitonin 0.067, TSH 0.49 08/14/24 13:21: Folate 6.43 I & O for Last 24 hours: Intake & Output 08/11/24 08/12/24 08/13/24 08/14/24 23:59 23:59 23:59 23:59 Intake Total 1030 / 1150 960 / 960 Output Total 0 / 350 350 / 350 Balance 1030 / 800 610 / 610 Weight 107.161 kg 108.454 kg Microbiology Reports for the Last 24 Hours: Microbiology 08/14/24 11:15 Sputum - Expectorated Sputum Gram Stain - Final 08/13/24 11:03 Blood Blood Culture - Preliminary NO GROWTH AFTER 24 HOURS 08/13/24 11:00 Blood Blood Culture - Preliminary NO GROWTH AFTER 24 HOURS 08/13/24 11:47 Urine,Clean Catch Urine Culture - Preliminary Gram Negative Rods Constitutional Constitutional: no acute distress *Routine HEENT Exam Head: Present normocephalic Eye: Present EOMI and PERRL ENT: Present mucous membranes moist *Routine Neck Exam Neck: Present supple; Absent lymphadenopathy *Routine Respiratory Exam Respiratory: Present CTA bilaterally *Routine Cardiovascular Exam Cardiovascular: Present RRR *Routine Abdominal Exam Abdominal: Present soft and normoactive bowel sounds; Absent tenderness *Routine Extremities Exam Extremities: Absent cyanosis, clubbing or edema Comments: Lower extremity weakness, left greater than right. *Routine Skin Exam Skin: Present warm; Absent rash *Routine Neurological Exam Neurological: Present alert and oriented X3 Assessment and Plan *Assessment and plan (1) Lower extremity weakness: Status: Acute Category: Medical Code(s): R29.898 - Other symptoms and signs involving the musculoskeletal system (2) Multiple sclerosis: Status: Acute Category: Medical Code(s): G35 - Multiple sclerosis Plan Med Chung is a 75-year-old male with a medical history significant for multiple sclerosis, type 2 diabetes, hypertension who presents with progressive lower extremity weakness. He states he has had issues with knees for a long time and has had left TKR with now his right knee [id number]. Over the past few days he has had difficulty with ambulation due to lower extremity weakness, and today he was unable to get up from a chair due to weakness. Patient just finished 2-week course of cefuroxime UTI yesterday. Denies fever/chills, chest pain, shortness of breath, abdominal pain, urinary symptoms. On my evaluation, he has bilateral 4/5 strength in lower extremities. No radiculopathy, having bowel movements. CBC, CMP relatively unremarkable. UA is suggestive of UTI. CXR suggestive of bibasilar pneumonia. No leukocytosis, fevers. Case discussed with ED provider and she was made to admit patient for lower extremity weakness, pneumonia, functional decline. #Lower extremity weakness #Multiple sclerosis flare #Advanced right knee osteoarthritis, history of left knee TKR #History of right lateral malleolus fracture ? Progressive lower extremity weakness. 4/5 strength bilaterally. No focal deficits. ? Etiology is uncertain at this time, due to complex medical history. Patient does have underlying pneumonia, UTI which could be contributing with the focality of left lower extremity weakness left greater than right suggest MS. ? History of MS, and the weakness has been progressive over the past week. Patient has only been recently diagnosed in the last few years. Apparently has had acute on chronic lower extremity weakness many times in the past. Was never started on high-dose steroid therapy. ? Given history more strongly suggesting MS flare today and progressive weakness over the past week, will trial high-dose Solu-Medrol therapy. ? Started Solu-Medrol 1000 mg day /3. ? Lower suspicion for spinal issues or Guillain-Turner? syndrome, as no back pain, radiculopathy, fevers. However we will consider further workup for this if symptoms do not improve. ? PT/OT consulted, recommended SNF. Unfortunately, we have tried placement in the past and this was not successful to insurance. ? Normal TSH, B12, folate, iron studies. #Community-acquired bibasilar pneumonia #UTI ? Evidenced on CXR, though no leukocytosis or signs of sepsis. ? Has been on 14-day course of cefuroxime for UTI finished day before admission. UA still grossly abnormal. ? Follow-up urine culture. ? Started cefepime, doxycycline day 04/28. ? Follow-up sputum, blood cultures. ? Follow-up CBC in the morning. #Type 2 diabetes ? Continue home metformin. ? Reduce gabapentin to 200 mg 3 times daily due to concern of weakness. #Hypertension ? Continue home bisoprolol, lisinopril. Full code DVT prophylaxis: Lovenox 40 mg
[2024-08-14] MEDS: METHYLPREDNISOLONE SOD SUCC 125MG VIAL 1000 MG IV (18:39)
[2024-08-14 19:32] VITALS: BP 155/91; PULSE 75; RESP 19; TEMP 37.1; O2SAT 94
[2024-08-14 20:00] VITALS: PULSE 75; RESP 19; O2SAT 94
--- NOTE | 2024-08-14 20:32 | PC.NURSE ---
Addendum entered by Marybeth Booker RN 08/14/24 23:45: Confusion noted to place and time. Addendum entered by Marybeth Booker RN 08/14/24 21:50: I entered the patient's room once more to attempt medication administration. Patient awakened again, stating, I do not want to take my medications. The patient was asked again for confirmation and he replied with I just do not want to. Scans in the MAR for the scheduled oral medications were undone earlier and will be marked as patient refused at this time. Medications will be wasted accordingly. Gabapentin was wasted appropriately as a controlled substance with the charge nurse (Zulma Vivar RN). Original Note: Upon entering the patient's room, the patient was observed to have eyes closed with respirations even and unlabored. Several attempts were made to awaken the patient. Upon arousal, the patient opened his eyes and I introduced myself. The patient was then made aware of having medications to be taken tonight. The patient stated no and closed his eyes immediately. I reiterated that he had medications to take, also confirming his verbal refusal of no. The patient verbally refused his medications again, saying no once more, and wanted to go back to sleeping. Administration to be tried again later.
[2024-08-15] VITALS (7 sets, daily range): BP systolic 127–154; BP diastolic 61–90; PULSE 78–93; RESP 17–22; TEMP 36.4–36.7; O2SAT 93–98; BMI 33.7
--- NOTE | 2024-08-15 04:10 | PC.NURSE ---
Patient is alert and oriented; however, periods of confusion and forgetfulness were noted this shift. He was observed to have eyes closed, respirations even and unlabored on room air, and no apparent distress throughout the majority of the night. Intravenous antibiotics were able to be administered per MAR; patient verbally refused to take PO medications multiple times this shift. Upon auscultation of his lungs, coarse crackles and diminished sounds were heard. Heart and lung sounds were within normal findings. Afebrile. Patient has shearing/stage II pressure ulcer noted to his buttocks; dressing is intact. A male purewick remains in place for voiding needs. Small oral intake but adequate urine output measured. Bedpan is at bedside for defecation needs (no bowel movement this shift). He requires at least x2 assistance during transfers due to ongoing weakness, particularly in his lower extremities. At this time, the patient is resting in bed. He has not had any complaints this shift. No new needs at this time. Bed alarm on. Call light within reach.
[2024-08-15] MEDS: CEFEPIME HCL 2 GM in 0.9 % SODIUM CHLORIDE 100 ML IV ×3 (06:10→21:55)
[2024-08-15 08:32] LABS: Alanine Aminotransferase 15 U/L (12-78); Albumin Level 3.1 g/dl (3.5-5.0); Albumin/Globulin Ratio 1.1 (1.1-1.8); Alkaline Phosphatase 114 U/L (38-126); Anion Gap 9.3 mEq/L (5-15); Aspartate Amino Transferase 15 U/L (17-59); Bilirubin,Total 0.9 mg/dl (0.2-1.3); Blood Urea Nitrogen 13 mg/dl (9-20); Calcium 8.6 mg/dl (8.4-10.2); Carbon Dioxide 23 mmol/L (22.0-30.0); Chloride 100 mmol/L (98-107); Creatinine Clearance Estimated 89 mL/min (50-200); Estimated Glomerular Filt Rate 109 ml/min (>60); GFR (African American) 132 ML/MIN (>60); Globulin 2.7 g/dL (1.3-3.2); Glucose 170 mg/dl (74-100); Potassium 4.3 mmoL/L (3.5-5.1); Sodium 128 mmol/L (136-145); Total Protein,Serum 5.8 g/dl (6.3-8.2)
[2024-08-15] MEDS: ASPIRIN EC 81MG TABLET 81 MG PO (09:15)
[2024-08-15] MEDS: SILODOSIN 8 MG 8 EACH PO (09:15)
[2024-08-15] MEDS: METHENAMINE HIPPURATE 1 GM 1 EACH PO ×2 (09:15→20:35)
[2024-08-15] MEDS: LISINOPRIL 5MG TABLET 5 MG PO (09:15)
[2024-08-15] MEDS: METFORMIN 500MG TABLET 500 MG PO (09:15)
[2024-08-15] MEDS: FAMOTIDINE 20MG TABLET 20 MG PO ×2 (09:16→20:35)
[2024-08-15] MEDS: SODIUM CHLORIDE 1,000MG TABLET 1000 MG PO ×3 (09:16→20:35)
[2024-08-15] MEDS: BISOPROLOL 5MG TABLET 5 MG PO (09:16)
[2024-08-15] MEDS: DOXYCYCLINE HYCL 100 MG TABLET PO ×2 (09:17→20:35)
[2024-08-15] MEDS: POLYETHYLENE GLYCOL 3350 17 GM PACKET PO (09:17)
[2024-08-15] MEDS: GABAPENTIN 100MG CAPSULE 200 MG PO ×3 (09:20→20:35)
[2024-08-15] MEDS: METHYLPREDNISOLONE SOD SUCC 125MG VIAL 1000 MG IV (09:22)
--- NOTE | 2024-08-15 17:35 | PC.NURSE ---
patient has been alert and oriented with periods of intermittent confusion/forgetfulness this shift. vital signs stable tolerating room air. IV abx infused per MAY. Stage 2 pressure ulcer and redness noted on coccyx with dressing in place. Purewick in place. Pt had a small bowel movement this morning. No complaints of pain this shift. No further needs voiced at this time. Pt lying supine comfortably in bed. Call light within reach.
--- NOTE | 2024-08-15 18:14 | EXP.PN ---
Subjective *Date: 08/15/24 *Time: 18:14 Interval history: Significant improvement in lower extremity weakness after starting high-dose Solu-Medrol therapy yesterday. Will continue for 1 more day. Pending placement. Exam Data for Last 24 hours Vital signs and Labs for Last 24 Hours: Temp Pulse Resp BP Pulse Ox O2 Del Method 98.0 F 83 22 147/78 H 93 L Room Air 08/15/24 16:00 08/15/24 16:00 08/15/24 16:00 08/15/24 16:00 08/15/24 16:00 08/15/24 17:00 Laboratory Results - last 24 hr 08/13/24 18:14: Urine Sodium 73.0 08/15/24 07:20: Sodium 128 L, Potassium 4.3, Chloride 100, Carbon Dioxide 23, Anion Gap 9.3, BUN 13, Creatinine 0.70, Estimated Creat Clear 89, Estimated GFR 109, Est GFR ( Amer) 132, Glucose 170 H, Calcium 8.6, Magnesium 2.0 D, Total Bilirubin 0.9, AST 15 L D, ALT 15, Alkaline Phosphatase 114, Total Protein 5.8 L, Albumin 3.1 L D, Globulin 2.7, Albumin/Globulin Ratio 1.1 I & O for Last 24 hours: Intake & Output 08/12/24 08/13/24 08/14/24 08/15/24 23:59 23:59 23:59 23:59 Intake Total 1030 / 1150 1260 / 1360 730 / 730 Output Total 0 / 350 500 / 500 880 / 880 Balance 1030 / 800 760 / 860 -150 / -150 Weight 107.161 kg 108.454 kg 103.419 kg Microbiology Reports for the Last 24 Hours: Microbiology 08/13/24 11:03 Blood Blood Culture - Preliminary NO GROWTH AFTER 48 HOURS 08/13/24 11:00 Blood Blood Culture - Preliminary NO GROWTH AFTER 48 HOURS 08/13/24 11:47 Urine,Clean Catch Urine Culture - Preliminary Gram Negative Rods 08/14/24 11:15 Sputum - Expectorated Sputum Gram Stain - Final Constitutional Constitutional: no acute distress *Routine HEENT Exam Head: Present normocephalic Eye: Present EOMI and PERRL ENT: Present mucous membranes moist *Routine Neck Exam Neck: Present supple; Absent lymphadenopathy *Routine Respiratory Exam Respiratory: Present CTA bilaterally *Routine Cardiovascular Exam Cardiovascular: Present RRR *Routine Abdominal Exam Abdominal: Present soft and normoactive bowel sounds; Absent tenderness *Routine Extremities Exam Extremities: Absent cyanosis, clubbing or edema Comments: Lower extremity weakness, left greater than right. *Routine Skin Exam Skin: Present warm; Absent rash *Routine Neurological Exam Neurological: Present alert and oriented X3 Assessment and Plan *Assessment and plan (1) Lower extremity weakness: Status: Acute Category: Medical Code(s): R29.898 - Other symptoms and signs involving the musculoskeletal system (2) Multiple sclerosis: Status: Acute Category: Medical Code(s): G35 - Multiple sclerosis Plan Med Chung is a 75-year-old male with a medical history significant for multiple sclerosis, type 2 diabetes, hypertension who presents with progressive lower extremity weakness. He states he has had issues with knees for a long time and has had left TKR with now his right knee [id number]. Over the past few days he has had difficulty with ambulation due to lower extremity weakness, and today he was unable to get up from a chair due to weakness. Patient just finished 2-week course of cefuroxime UTI yesterday. Denies fever/chills, chest pain, shortness of breath, abdominal pain, urinary symptoms. On my evaluation, he has bilateral 4/5 strength in lower extremities. No radiculopathy, having bowel movements. CBC, CMP relatively unremarkable. UA is suggestive of UTI. CXR suggestive of bibasilar pneumonia. No leukocytosis, fevers. Case discussed with ED provider and she was made to admit patient for lower extremity weakness, pneumonia, functional decline. #Lower extremity weakness #Multiple sclerosis flare #Advanced right knee osteoarthritis, history of left knee TKR #History of right lateral malleolus fracture ? Progressive lower extremity weakness. 4/5 strength bilaterally. No focal deficits. ? Etiology may be multifactorial at this time, due to complex medical history. Patient does have underlying pneumonia, UTI which could be contributing with the focality of left lower extremity weakness left greater than right suggest MS. ? History of MS, and the weakness has been progressive over the past week. Patient has only been recently diagnosed in the last few years. Apparently has had acute on chronic lower extremity weakness many times in the past. Was never started on high-dose steroid therapy. ? Given history more strongly suggesting MS flare and progressive weakness over the past week, treating with high-dose Solu-Medrol therapy. ? Dramatic improvement in lower extremity weakness since starting high-dose Solu-Medrol therapy. Patient also feels significantly better, more energy and better mood. ? Continue Solu-Medrol 1000 mg day 2/3. ? Lower suspicion for spinal issues or Guillain-Turner? syndrome, as no back pain, radiculopathy, fevers. However we will consider further workup for this if symptoms do not improve. ? PT/OT consulted, recommended SNF. Discussed with case management, assisting with placement. ? Normal TSH, B12, folate, iron studies. #Community-acquired bibasilar pneumonia #UTI ? Evidenced on CXR, though no leukocytosis or signs of sepsis. ? Has been on 14-day course of cefuroxime for UTI finished day before admission. UA still grossly abnormal. ? Continue cefepime, doxycycline day 3/5. ? Follow-up sputum, urine, blood cultures. ? Follow-up CBC in the morning. #Type 2 diabetes ? Continue home metformin. ? Reduce gabapentin to 200 mg 3 times daily due to concern of weakness. #Hypertension ? Continue home bisoprolol, lisinopril. Full code DVT prophylaxis: Lovenox 40 mg
[2024-08-15] MEDS: ATORVASTATIN 20MG TABLET 20 MG PO (20:35)
[2024-08-16] VITALS: BP 151/75; PULSE 79; RESP 16; TEMP 36.7; O2SAT 97
--- NOTE | 2024-08-16 03:35 | PC.NURSE ---
Addendum entered by Marybeth Booker RN 08/16/24 06:51: Patient was observed to be quite confused about his surroundings and situation this morning. Reorientation difficult; staff was at bedside for comfort and reassurance. He also expressed concerns about his 's well-being. Original Note: During wakeful periods this shift, the patient has been more alert and conversational; disorientation to time and place still noted but is aware of situation. He was observed to have eyes closed, respirations even and unlabored on room air, and no apparent distress throughout the majority of the night. All scheduled medications were able to be administered per MAY. Diminished lung sounds were heard upon auscultation this time. Heart and bowel sounds remain within normal findings. Male purewick and bedpan utilized for elimination needs accordingly. He continues to require at least x2 assistance during transfers. Patient stated upon initial assessment that he feels much better in terms of improving strength and mobility. Self-turning in bed. Dressing remains in place to ulcer/shearing on buttocks. At this time, the patient is resting in bed without any further complaints. No new needs thus far. Bed alarm on. Call light within reach.
[2024-08-16 04:00] VITALS: BP 154/74; PULSE 75; RESP 17; TEMP 36.4; O2SAT 96; BMI 33.9
[2024-08-16] MEDS: CEFEPIME HCL 2 GM in 0.9 % SODIUM CHLORIDE 100 ML IV (06:05)
[2024-08-16 06:12] LABS: Alanine Aminotransferase 21 U/L (12-78); Albumin/Globulin Ratio 1.2 (1.1-1.8); Alkaline Phosphatase 100 U/L (38-126); Anion Gap 9.4 mEq/L (5-15); Aspartate Amino Transferase 20 U/L (17-59); Bilirubin,Total 0.6 mg/dl (0.2-1.3); Blood Urea Nitrogen 21 mg/dl (9-20); Calcium 8.9 mg/dl (8.4-10.2); Carbon Dioxide 22 mmol/L (22.0-30.0); Chloride 103 mmol/L (98-107); Creatinine Clearance Estimated 89 mL/min (50-200); Estimated Glomerular Filt Rate 93 ml/min (>60); GFR (African American) 113 ML/MIN (>60); Globulin 2.5 g/dL (1.3-3.2); Glucose 181 mg/dl (74-100); Potassium 4.4 mmoL/L (3.5-5.1); Sodium 130 mmol/L (136-145); Total Protein,Serum 5.5 g/dl (6.3-8.2)
[2024-08-16 08:00] VITALS: BP 165/84; PULSE 80; RESP 20; TEMP 37.1; O2SAT 95
--- NOTE | 2024-08-16 08:15 | EXP.PHA.PN ---
Subjective *Date: 08/16/24 *Time: 08:15 Medical Exam Vital signs and Labs for Last 24 Hours: Vital Signs Temp Pulse Resp BP Pulse Ox O2 Del Method 08/16/24 06:40 Room Air 08/16/24 05:00 Room Air 08/16/24 04:00 97.6 F 75 17 154/74 H 96 Room Air 08/16/24 03:00 Room Air 08/16/24 01:00 Room Air 08/16/24 00:00 98.0 F 79 16 151/75 H 97 Room Air 08/15/24 23:00 Room Air 08/15/24 21:00 Room Air 08/15/24 20:00 86 17 98 Room Air 08/15/24 19:56 98.1 F 86 17 134/61 94 L Room Air 08/15/24 18:43 Room Air 08/15/24 17:00 Room Air 08/15/24 16:00 98.0 F 83 22 147/78 H 93 L Room Air 08/15/24 15:00 Room Air 08/15/24 13:00 Room Air 08/15/24 12:00 98.0 F 78 18 143/72 H 95 Room Air 08/15/24 11:00 Room Air 08/15/24 09:00 Room Air Intake and Output 08/15/24 08/16/24 08/16/24 23:59 07:59 15:59 Intake Total 240 / 1190 220 / 220 Output Total 50 / 930 150 / 150 Balance 190 / 260 70 / 70 Intake: Intake, Oral Amount 240 / 990 120 / 120 Infusion Intake 100 / 100 Cefepime HCl 2 gm In 0.9 % 100 / 100 Sodium Chloride 100 ml @ 200 mls/hr IV Q8H [facility] Rx#:[id number] Output: Output, Urine Amount 50 / 930 150 / 150 Other: Number of Unmeasured Voids 0 Weight 103.873 kg Patient Weight 08/16/24 23:59 Weight 103.873 kg Laboratory Results - last 24 hr 08/13/24 18:14: Urine Sodium 73.0 08/15/24 07:20: Sodium 128 L, Potassium 4.3, Chloride 100, Carbon Dioxide 23, Anion Gap 9.3, BUN 13, Creatinine 0.70, Estimated Creat Clear 89, Estimated GFR 109, Est GFR ( Amer) 132, Glucose 170 H, Calcium 8.6, Magnesium 2.0 D, Total Bilirubin 0.9, AST 15 L D, ALT 15, Alkaline Phosphatase 114, Total Protein 5.8 L, Albumin 3.1 L D, Globulin 2.7, Albumin/Globulin Ratio 1.1 08/16/24 05:48: Sodium 130 L, Potassium 4.4, Chloride 103, Carbon Dioxide 22, Anion Gap 9.4, BUN 21 H D, Creatinine 0.80, Estimated Creat Clear 89, Estimated GFR 93, Est GFR ( Amer) 113, Glucose 181 H, Calcium 8.9, Magnesium 2.0, Total Bilirubin 0.6, AST 20 D, ALT 21 D, Alkaline Phosphatase 100, Total Protein 5.5 L, Albumin 3.0 L, Globulin 2.5, Albumin/Globulin Ratio 1.2 I & O for Labs for Last 24 Hours: Intake & Output 08/13/24 08/14/24 08/15/24 08/16/24 23:59 23:59 23:59 23:59 Intake Total 1030 / 1150 1260 / 1360 970 / 1190 220 / 220 Output Total 0 / 350 500 / 500 930 / 930 150 / 150 Balance 1030 / 800 760 / 860 40 / 260 70 / 70 Weight 107.161 kg 108.454 kg 103.419 kg 103.873 kg Microbiology Reports for the Last 24 Hours: Microbiology 08/13/24 11:47 Urine,Clean Catch Urine Culture - Final Pseudomonas aeruginosa 08/13/24 11:03 Blood Blood Culture - Preliminary NO GROWTH AFTER 48 HOURS 08/13/24 11:00 Blood Blood Culture - Preliminary NO GROWTH AFTER 48 HOURS The patient's infection will respond to the chosen ABx?: Yes (SPUTUM CX PENDING, URINE CX PSEUDOMONAS TREATED WITH CEFEPIME.) Is the patient receiving the right drug, dose, and route?: Yes Could a more targeted ABx be ordered?: No How long ABx needed (days)?: 5
[2024-08-16] MEDS: ASPIRIN EC 81MG TABLET 81 MG PO (08:25)
[2024-08-16] MEDS: METFORMIN 500MG TABLET 500 MG PO (08:25)
[2024-08-16] MEDS: GABAPENTIN 100MG CAPSULE 200 MG PO ×3 (08:25→20:22)
[2024-08-16] MEDS: SODIUM CHLORIDE 1,000MG TABLET 1000 MG PO ×3 (08:26→20:23)
[2024-08-16] MEDS: BISOPROLOL 5MG TABLET 5 MG PO (08:26)
[2024-08-16] MEDS: DOXYCYCLINE HYCL 100 MG TABLET PO ×2 (08:26→20:23)
[2024-08-16] MEDS: LISINOPRIL 5MG TABLET 5 MG PO (08:26)
[2024-08-16] MEDS: SILODOSIN 8 MG 8 EACH PO (08:27)
[2024-08-16] MEDS: METHENAMINE HIPPURATE 1 GM 1 EACH PO ×2 (08:27→20:23)
[2024-08-16] MEDS: METHYLPREDN SOD SUCC 1,000 MG in 0.9 % SODIUM CHLORIDE 250 ML 500 MG IV (08:28)
[2024-08-16] MEDS: POLYETHYLENE GLYCOL 3350 17 GM PACKET PO (08:28)
--- NOTE | 2024-08-16 08:31 | SW/DCPLANNER ---
Addendum entered by Sandi Sánchez 08/17/24 09:14: Per Vicky w/ [facility] patient has been accepted SNF level of care. I have updated patient and family. Patient will discharge today. Addendum entered by Sandi [place] 08/16/24 12:22: Family now requesting [facility]. I have updated Vicky and she will continue to review for this facility. Addendum entered by [facility] 08/16/24 11:48: Per Vicky mora/ [facility] she can not accept/deny patient till tomorrow due to holiday. Addendum entered by Sandi [place] 08/16/24 10:29: Vicky mora/ [facility] is currently reviewing patient information. Original Note: I spoke w/ patient and his regarding plans once medically stable for discharge. PT/OT evaluated patient and recommended SNF level of care. Patient is agreeable to placement and prefers [facility]. Unfortunately at this time [facility] does not have bed availability. Patient/ are interested in [facility]. [facility]icky mora[facility] confirmed male beds are available and information has been faxed. Per patient is medically stable for discharge today. I will continue to follow up.
[2024-08-16] MEDS: FAMOTIDINE 20MG TABLET 20 MG PO ×2 (09:36→20:39)
[2024-08-16] MEDS: PIPERCILLIN/TAZO 3.375 GM in 0.9 % SODIUM CHLORIDE 50 ML IV ×2 (11:08→17:57)
--- NOTE | 2024-08-16 14:52 | P.PN_ITS ---
Subjective *Date: 08/16/24 *Time: 14:52 Interval history: Patient's lower extremity weakness continues to improve, however more confused today. Likely from high-dose steroids, possibly cefepime. Finished steroid course, will switch from cefepime to Zosyn. Pending placement. Exam Data for Last 24 hours Vital signs and Labs for Last 24 Hours: Temp Pulse Resp BP Pulse Ox O2 Del Method 98.7 F 80 20 165/84 H 95 Room Air 08/16/24 08:00 08/16/24 08:00 08/16/24 08:00 08/16/24 08:00 08/16/24 08:00 08/16/24 11:00 Laboratory Results - last 24 hr 08/16/24 05:48: Sodium 130 L, Potassium 4.4, Chloride 103, Carbon Dioxide 22, Anion Gap 9.4, BUN 21 H D, Creatinine 0.80, Estimated Creat Clear 89, Estimated GFR 93, Est GFR ( Amer) 113, Glucose 181 H, Calcium 8.9, Magnesium 2.0, Total Bilirubin 0.6, AST 20 D, ALT 21 D, Alkaline Phosphatase 100, Total Protein 5.5 L, Albumin 3.0 L, Globulin 2.5, Albumin/Globulin Ratio 1.2 I & O for Last 24 hours: Intake & Output 08/13/24 08/14/24 08/15/24 08/16/24 23:59 23:59 23:59 23:59 Intake Total 1030 / 1150 1260 / 1360 970 / 1190 820 / 820 Output Total 0 / 350 500 / 500 930 / 930 150 / 150 Balance 1030 / 800 760 / 860 40 / 260 670 / 670 Weight 107.161 kg 108.454 kg 103.419 kg 103.873 kg Microbiology Reports for the Last 24 Hours: Microbiology 08/14/24 11:15 Sputum - Expectorated Sputum Gram Stain - Final 08/14/24 11:15 Sputum - Expectorated Sputum Sputum Culture - Preliminary 08/13/24 11:47 Urine,Clean Catch Urine Culture - Final Pseudomonas aeruginosa 08/13/24 11:03 Blood Blood Culture - Preliminary NO GROWTH AFTER 48 HOURS 08/13/24 11:00 Blood Blood Culture - Preliminary NO GROWTH AFTER 48 HOURS Constitutional Constitutional: no acute distress *Routine HEENT Exam Head: Present normocephalic Eye: Present EOMI and PERRL ENT: Present mucous membranes moist *Routine Neck Exam Neck: Present supple; Absent lymphadenopathy *Routine Respiratory Exam Respiratory: Present CTA bilaterally *Routine Cardiovascular Exam Cardiovascular: Present RRR *Routine Abdominal Exam Abdominal: Present soft and normoactive bowel sounds; Absent tenderness *Routine Extremities Exam Extremities: Absent cyanosis, clubbing or edema *Routine Skin Exam Skin: Present warm; Absent rash *Routine Neurological Exam Neurological: Present alert and oriented X3 Assessment and Plan *Assessment and plan (1) Lower extremity weakness: Status: Acute Category: Medical Code(s): R29.898 - Other symptoms and signs involving the musculoskeletal system (2) Multiple sclerosis: Status: Acute Category: Medical Code(s): G35 - Multiple sclerosis Plan Med Chung is a 75-year-old male with a medical history significant for m ultiple sclerosis, type 2 diabetes, hypertension who presents with progressive lower extremity weakness. He states he has had issues with knees for a long time and has had left TKR with now his right knee [id number]. Over the past few days he has had difficulty with ambulation due to lower extremity weakness, and today he was unable to get up from a chair due to weakness. Patient just finished 2-week course of cefuroxime UTI yesterday. Denies fever/chills, chest pain, shortness of breath, abdominal pain, urinary symptoms. On my evaluation, he has bilateral 4/5 strength in lower extremities. No radiculopathy, having bowel movements. CBC, CMP relatively unremarkable. UA is suggestive of UTI. CXR suggestive of bibasilar pneumonia. No leukocytosis, fevers. Case discussed with ED provider and she was made to admit patient for lower extremity weakness, pneumonia, functional decline. #Lower extremity weakness #Multiple sclerosis flare #Advanced right knee osteoarthritis, history of left knee TKR #History of right lateral malleolus fracture ? Presented with progressive lower extremity weakness, left worse than right. ? Etiology may be multifactorial at this time, due to complex medical history. Patient does have underlying pneumonia, UTI which could be contributing but the focality of left lower extremity weakness left greater than right suggest MS. ? History of MS, and the weakness has been progressive over the past week. Patient has only been recently diagnosed in the last few years. Apparently has had acute on chronic lower extremity weakness many times in the past. Was never started on high-dose steroid therapy. ? Given history more strongly suggesting MS flare and progressive weakness over the past week, treating with high-dose Solu-Medrol therapy. ? Dramatic improvement in lower extremity weakness since starting high-dose Solu-Medrol therapy. Patient also feels significantly better, more energy and better mood. ? Today, patient and states that patient is little more confused, irritable. Likely side effect from high-dose steroid therapy, and possibly cefepime. But otherwise, continues to have improvement in lower extremity strength. ? Finished 3-day course of Solu-Medrol 1000 mg. ? Low suspicion for spinal issues or Guillain-Turner? syndrome, as no back pain, radiculopathy, fevers. However we will consider further workup for this if symptoms do not improve. ? PT/OT consulted, recommended SNF. Discussed with case management, assisting with placement. Patient information has been sent [facility] to [facility]. Medically stable for discharge to SNF. ? Normal TSH, B12, folate, iron studies. #Community-acquired bibasilar pneumonia #UTI ? Evidenced on CXR, though no leukocytosis or signs of sepsis. ? Has been on 14-day course of cefuroxime for UTI finished day before admission. Urine culture growing Pseudomonas, will switch from cefepime to Zosyn due to confusion. ? Continue Zosyn, doxycycline day 4/5. ? Follow-up sputum culture. ? Follow-up CBC in the morning. #Type 2 diabetes ? Continue home metformin. ? Reduce gabapentin to 200 mg 3 times daily due to concern of weakness. #Hypertension ? Continue home bisoprolol, lisinopril. Full code DVT prophylaxis: Lovenox 40 mg
[2024-08-16 15:15] LABS: Basophils % 0.1 % (0.1-2.0); Eosinophils % 0.4 % (0.1-12.0); Hematocrit 31.9 % (42.0-52.0); Hemoglobin 10.4 g/dL (14.1-18.0); Immature Granulocytes # 0.03 10^3uL; Immature Granulocytes % 0.3 %; Lymphocytes # 1.5 K/mm3 (0.7-4.5); Lymphocytes % 14.3 % (10-50); Mean Corpuscular HGB Conc 32.6 g/dL (31.8-35.4); Mean Corpuscular Hemoglobin 27.9 pg (27.0-31.2); Mean Corpuscular Volume 85.5 fl (80-94); Mean Platelet Volume 10.7 fl (7.4-10.4); Monocytes # 0.3 K/mm3 (0.1-1.0); Monocytes % 2.7 % (1.7-9.3); Neutrophils # 8.7 K/mm3 (1.8-7.8); Neutrophils % 82.2 % (37.0-80.0); Nucleated Red Blood Cells # 0 10^3/uL; Nucleated Red Blood Cells % 0 %; Platelet Count 303 K/mm3 (142-424); Red Blood Count 3.73 M/mm3 (4.60-6.20); Red Cell Distribution Width 13.9 % (11.5-17.5); Red Cell Distribution Width-SD 43.3 fL; White Blood Count 10.6 K/mm3 (4.8-10.8)
--- NOTE | 2024-08-16 15:38 | PC.NURSE ---
patient is a/ox2. patient has been pleasantly confused. PW in place, has used bedpan twice this shift. new dressing applied to bottom fur to stage II ulcer. dressing C/D/I. family has been in room most of shift. remains on RA. bed low and locked. call light within reach, bed alarm in place. tolerating diet well. Q2 turns. no c/o of pain or nausea. no further requests at this time.
[2024-08-16 16:00] VITALS: BP 140/66; PULSE 90; RESP 16; TEMP 36.8; O2SAT 94
[2024-08-16 20:00] VITALS: BP 115/87; PULSE 68; RESP 14; TEMP 36.5; O2SAT 97
[2024-08-16] MEDS: ATORVASTATIN 20MG TABLET 20 MG PO (20:22)
[2024-08-17] MEDS: PIPERCILLIN/TAZO 3.375 GM in 0.9 % SODIUM CHLORIDE 50 ML IV ×2 (00:01→07:40)
[2024-08-17 04:00] VITALS: BP 153/78; PULSE 71; RESP 14; TEMP 36.4; O2SAT 97; BMI 35.1
--- NOTE | 2024-08-17 07:42 | PC.NURSE ---
Pt. was alert and orientated x 4 at the start of my shift. (7PM). at around midnight, Pt. was a littlet confused, knew his name and Birthday but not year or where he was.. Pt. went back to sleep after antibiotics. Pt. awake at 0600 and confused. alert to name only. Pt. sted he was at home and needed his here and refused care until he contacted his . Pt. on room air. Pt. did call his and she arrived at change of shift this am. Personal items and call ford in reach.
[2024-08-17 08:00] VITALS: BP 166/81; PULSE 86; RESP 20; TEMP 36.5; O2SAT 96
[2024-08-17] MEDS: GABAPENTIN 100MG CAPSULE 200 MG PO (08:28)
[2024-08-17] MEDS: DOXYCYCLINE HYCL 100 MG TABLET PO (08:29)
[2024-08-17] MEDS: ASPIRIN EC 81MG TABLET 81 MG PO (08:29)
[2024-08-17] MEDS: SILODOSIN 8 MG 8 EACH PO (08:29)
[2024-08-17] MEDS: SODIUM CHLORIDE 1,000MG TABLET 1000 MG PO (08:29)
[2024-08-17] MEDS: LISINOPRIL 5MG TABLET 5 MG PO (08:29)
[2024-08-17] MEDS: METHENAMINE HIPPURATE 1 GM 1 EACH PO (08:29)
[2024-08-17] MEDS: FAMOTIDINE 20MG TABLET 20 MG PO (08:30)
[2024-08-17] MEDS: METFORMIN 500MG TABLET 500 MG PO (08:30)
[2024-08-17] MEDS: POLYETHYLENE GLYCOL 3350 17 GM PACKET PO (08:30)
[2024-08-17] MEDS: BISOPROLOL 5MG TABLET 5 MG PO (08:30)
--- NOTE | 2024-08-17 09:09 | P.DS_ITS ---
General Admission date:: 08/13/24 Discharge date: 08/17/24 HPI HPI HPI: Med Chung is a 75-year-old male with a medical history significant for multiple sclerosis, type 2 diabetes, hypertension who presents with progressive lower extremity weakness. He states he has had issues with knees for a long time and has had left TKR with now his right knee [id number]. Over the past few days he has had difficulty with ambulation due to lower extremity weakness, and today he was unable to get up from a chair due to weakness. Patient just finished 2-week course of cefuroxime UTI yesterday. Denies fever/chills, chest pain, shortness of breath, abdominal pain, urinary symptoms. On my evaluation, he has bilateral 4/5 strength in lower extremities. No radiculopathy, having bowel movements. CBC, CMP relatively unremarkable. UA is suggestive of UTI. CXR suggestive of bibasilar pneumonia. No leukocytosis, fevers. Case discussed with ED provider and she was made to admit patient for lower extremity weakness, pneumonia, functional decline. Hospital Course Hospital Course Hospital Course: Med Chung is a 75-year-old male with a medical history significant for multiple sclerosis, type 2 diabetes, hypertension who presents with progressive lower extremity weakness. He states he has had issues with knees for a long time and has had left TKR with now his right knee [id number]. Over the past few days he has had difficulty with ambulation due to lower extremity weakness, and today he was unable to get up from a chair due to weakness. Patient just finished 2-week course of cefuroxime UTI yesterday. Denies fever/chills, chest pain, shortness of breath, abdominal pain, urinary symptoms. On my evaluation, he has bilateral 4/5 strength in lower extremities. No radiculopathy, having bowel movements. CBC, CMP relatively unremarkable. UA is suggestive of UTI. CXR suggestive of bibasilar pneumonia. No leukocytosis, fevers. Case discussed with ED provider and she was made to admit patient for lower extremity weakness, pneumonia, functional decline. Did well with steroids. Needing placement for rehab. Stable to discharge to SNF. Appreciate [facility] support with patient. Problems addressed as follows: #Lower extremity weakness #Multiple sclerosis flare #Advanced right knee osteoarthritis, history of left knee TKR #History of right lateral malleolus fracture ? Presented with progressive lower extremity weakness, left worse than right. Etiology may be multifactorial at this time, due to complex medical history. Patient does have underlying pneumonia, UTI which could be contributing but the focality of left lower extremity weakness left greater than right suggest MS. History of MS, and the weakness has been progressive over the past week. Patient has only been recently diagnosed in the last few years. Apparently has had acute on chronic lower extremity weakness many times in the past. Was never started on high-dose steroid therapy. Given history more strongly suggesting MS flare and progressive weakness over the past week, treating with high-dose Solu- Medrol therapy. Completed steroid course. Doing better with dramatic improvement in lower extremity weakness since starting high-dose Solu-Medrol therapy. Patient also feels significantly better, more energy and better mood. Has had some mild confusion but recognizes his confusion, likely steroid side effect. Anticipate improvement after discontinuation of steroid course. Otherwise, continues to have improvement in lower extremity strength. Finished 3-day course of Solu-Medrol 1000 mg. Low suspicion for spinal issues or Guillain-Turner? syndrome, as no back pain, radiculopathy, fevers. PT/OT consulted, recommended SNF. Patient excepted to [facility] for further manage. Normal TSH, B12, folate, iron studies. #Community-acquired bibasilar pneumonia #UTI ? Evidenced on CXR, though no leukocytosis or signs of sepsis. Has been on 14- day course of cefuroxime for UTI finished day before admission. Urine culture growing Pseudomonas, sensitive to cefepime, Zosyn, ciprofloxacin. Has completed 5 days of antibiotics with cefepime and Zosyn. No indication for further antibiotics at discharge. Will complete 5 days of doxycycline for pneumonia. Stable on room air. #Type 2 diabetes ? Continue home metformin. Reduced gabapentin to 200 mg 3 times daily due to concern of weakness. #Hypertension: Continue home bisoprolol, lisinopril. Total time spent on discharge 32 minutes in counseling, documentation, chart review, and direct care with patient. Exam Data for Last 24 hours Vital signs and Labs for Last 24 Hours: Temp Pulse Resp BP Pulse Ox O2 Del Method 97.7 F 86 20 166/81 H 96 Room Air 08/17/24 08:00 08/17/24 08:00 08/17/24 08:00 08/17/24 08:00 08/17/24 08:00 08/17/24 08:00 Laboratory Results - last 24 hr 08/16/24 05:48: WBC 10.6 D, RBC 3.73 L, Hgb 10.4 L, Hct 31.9 L, MCV 85.5, MCH 27.9, MCHC 32.6, RDW 13.9, Plt Count 303 D, MPV 10.7 H, Neut % (Auto) 82.2 H, Lymph % (Auto) 14.3, Hamblen % (Auto) 2.7, Eos % (Auto) 0.4, Baso % (Auto) 0.1, Neut # (Auto) 8.7 H, Lymph # (Auto) 1.5, Hamblen # (Auto) 0.3, Eos # (Auto) 0.0, Baso # (Auto) 0.0 I & O for Last 24 hours: Intake & Output 08/14/24 08/15/24 08/16/24 08/17/24 23:59 23:59 23:59 23:59 Intake Total 1260 / 1360 970 / 1190 940 / 990 250 / 250 Output Total 500 / 500 930 / 930 600 / 600 0 / 0 Balance 760 / 860 40 / 260 340 / 390 250 / 250 Weight 108.454 kg 103.419 kg 103.873 kg 107.592 kg Microbiology Reports for the Last 24 Hours: Microbiology 08/14/24 11:15 Sputum - Expectorated Sputum Gram Stain - Final 08/14/24 11:15 Sputum - Expectorated Sputum Sputum Culture - Preliminary 08/13/24 11:47 Urine,Clean Catch Urine Culture - Final Pseudomonas aeruginosa Constitutional Constitutional: no acute distress, obese and cooperative *Routine HEENT Exam Head: Present normocephalic and cushingoid faces Eye: Present EOMI and PERRL ENT: Present mucous membranes moist *Routine Neck Exam Neck: Present supple; Absent lymphadenopathy *Routine Respiratory Exam Respiratory: Present CTA bilaterally; Absent respiratory distress, stridor, wheezes or crackles *Routine Cardiovascular Exam Cardiovascular: Present RRR *Routine Abdominal Exam Abdominal: Present soft and normoactive bowel sounds; Absent tenderness *Routine Rectal Exam Patient deferred: visual exam *Routine Exam Patient deferred: penile exam *Routine Extremities Exam Extremities: Absent cyanosis, clubbing or edema *Routine Skin Exam Skin: Present intact and warm; Absent rash *Routine Neurological Exam Neurological: Present alert, oriented X3 and moving all extremities; Absent altered mental status Comments: Gets confused when talking but recognizes it and corrects himself, worse in the mornings. Having some side effects from steroids. Oriented to self, place, and family at bedside. Results Data Completed and Pending Labs on day of discharge: Labs from last 24 hours 08/16/24 05:48 WBC 10.6 D RBC 3.73 L Hgb 10.4 L Hct 31.9 L MCV 85.5 MCH 27.9 MCHC 32.6 RDW 13.9 Plt Count 303 D MPV 10.7 H Neut % (Auto) 82.2 H Lymph % (Auto) 14.3 Hamblen % (Auto) 2.7 Eos % (Auto) 0.4 Baso % (Auto) 0.1 Neut # (Auto) 8.7 H Lymph # (Auto) 1.5 Hamblen # (Auto) 0.3 Eos # (Auto) 0.0 Baso # (Auto) 0.0 Preliminary micro results at discharge 08/14/24 11:15 Sputum Culture - Preliminary Sputum - Expectorated Sputum 08/13/24 11:03 Blood Culture - Preliminary Blood NO GROWTH AFTER 48 HOURS 08/13/24 11:00 Blood Culture - Preliminary Blood NO GROWTH AFTER 48 HOURS DS: Diagnosis Discharge Diagnosis (1) Lower extremity weakness: Status: Acute Code(s): R29.898 - Other symptoms and signs involving the musculoskeletal system (2) Multiple sclerosis: Status: Acute Code(s): G35 - Multiple sclerosis Meds Home Medications and Allergies Home Medications ?Medication ?Instructions ?Recorded ?Confirmed ?Type vitamin E 400 unit tablet 400 unit PO DAILY 08/13/24 08/13/24 History acetaminophen 325 mg tablet 650 mg (2 x 325 mg) PO Q4HP PRN 08/17/24 Rx Fever Or Mild Pain (1-3) #90 tabs aspirin 81 mg tablet 81 mg PO DAILY 30 days #30 tabs 08/17/24 Rx atorvastatin 20 mg tablet 20 mg PO HS 30 days #30 tabs 08/17/24 Rx bisoprolol fumarate 5 mg tablet 5 mg PO DAILY 30 days #30 tabs 08/17/24 Rx cholecalciferol (vitamin D3) 50 2,000 unit PO DAILY #30 caps 08/17/24 Rx mcg (2,000 unit) capsule (Vitamin D3) cyanocobalamin (vitamin B-12) 1,000 mcg PO DAILY 30 days #30 caps 08/17/24 Rx 1,000 mcg capsule famotidine 20 mg tablet 20 mg PO BID #60 tabs 08/17/24 Rx gabapentin 100 mg capsule 200 mg (2 x 100 mg) PO TID 30 days 08/17/24 Rx #180 caps lisinopril 5 mg tablet 5 mg PO DAILY #30 tabs 08/17/24 Rx metformin 500 mg 24 hr 500 mg PO DAILY #30 tabs 08/17/24 Rx tablet,extended release (gastric retention) methenamine hippurate 1 gram tablet 1 g PO BID 30 days #60 tabs 08/17/24 Rx polyethylene glycol 3350 17 17 g PO DAILY #238 grams 08/17/24 Rx gram/dose oral powder (Miralax) silodosin 8 mg capsule 8 mg PO DAILY 30 days #30 caps 08/17/24 Rx vitamins A,C,F-bosz-htwjkw 2,148 1 tab PO BID 30 days #60 tabs 08/17/24 Rx mcg-113 mg-45 mg-17.4 mg tablet (PreserVision AREDS) New Prescriptions to Start Prescriptions: acetaminophen Alvin,Med aspirin Alvin,Med atorvastatin Med Esquivel bisoprolol fumarate Med Esquivel cholecalciferol (vitamin D3) [Vitamin D3] Med Esuqivel cyanocobalamin (vitamin B-12) Med Esquivel famotidine Med Esquivel gabapentin Med Esquivel lisinopril Med Esquivel metformin Med Esquivel methenamine hippurate Med Esquivel polyethylene glycol 3350 [Miralax] Med Esquivel silodosin Med Esquivel vitamins A,C,X-okoj-nqzoom [PreserVision AREDS] Med Esquivel Allergies Allergy/AdvReac Type Severity Reaction Status Date / Time No Known Allergies Allergy Verified 07/19/24 13:22 Discharge Plan Disposition Patient Disposition: [facility] Condition: Fair Follow up Plan Prescriptions/Medication Reconciliation: New acetaminophen 325 mg Tablet 650 mg PO Q4HP PRN (Reason: Fever Or Mild Pain (1-3)) Qty: 90 0RF gabapentin 100 mg Capsule 200 mg PO TID 30 Days Qty: 180 0RF Continued vitamin E 400 unit Tablet 400 unit PO DAILY bisoprolol fumarate 5 mg tablet 5 mg PO DAILY 30 Days Qty: 30 0RF methenamine hippurate 1 gram tablet 1 g PO BID 30 Days Qty: 60 0RF famotidine 20 mg tablet 20 mg PO BID Qty: 60 5RF aspirin 81 mg Tablet 81 mg PO DAILY 30 Days Qty: 30 0RF lisinopril 5 mg tablet 5 mg PO DAILY Qty: 30 2RF polyethylene glycol 3350 [Miralax] 17 gram/dose Powder 17 g PO DAILY Qty: 238 0RF metformin 500 mg Tablet,Er Jenna.Retention 24 Hr 500 mg PO DAILY Qty: 30 0RF silodosin 8 mg capsule 8 mg PO DAILY 30 Days Qty: 30 0RF PreserVision AREDS 2,148 mcg-113 mg-45 mg-17.4mg Tablet 1 tab PO BID 30 Days Qty: 60 0RF cyanocobalamin (vitamin B-12) 1,000 mcg capsule 1,000 mcg PO DAILY 30 Days Qty: 30 0RF Changed atorvastatin 20 mg tablet 20 mg PO HS 30 Days Qty: 30 0RF cholecalciferol (vitamin D3) [Vitamin D3] 50 mcg (2,000 unit) Capsule 2,000 unit PO DAILY Qty: 30 0RF Discontinued gabapentin 100 mg capsule 200 mg PO QID Problem Reconciliation Problems Reviewed?: Yes Patient Discharge Instructions ACTIVITY: Continue current activity DIET: continue same diet Patient Instructions: Pneumonia--Adult, Hyponatremia-Adult Print Language: Maltese Providers Primary Care Provider: Nick Dale Admit Provider: Chas Sigala Attending Provider: Chas Sigala
[2024-08-17 09:58] LABS: Eosinophils % 0.1 % (0.1-12.0); Hematocrit 33.1 % (42.0-52.0); Hemoglobin 10.6 g/dL (14.1-18.0); Immature Granulocytes # 0.05 10^3uL; Immature Granulocytes % 0.6 %; Lymphocytes # 0.8 K/mm3 (0.7-4.5); Lymphocytes % 8.6 % (10-50); Mean Corpuscular Hemoglobin 27.4 pg (27.0-31.2); Mean Corpuscular Volume 85.5 fl (80-94); Mean Platelet Volume 10.1 fl (7.4-10.4); Monocytes # 0.2 K/mm3 (0.1-1.0); Monocytes % 2.7 % (1.7-9.3); Neutrophils # 7.9 K/mm3 (1.8-7.8); Nucleated Red Blood Cells # 0 10^3/uL; Nucleated Red Blood Cells % 0 %; Platelet Count 326 K/mm3 (142-424); Red Blood Count 3.87 M/mm3 (4.60-6.20); Red Cell Distribution Width 14.3 % (11.5-17.5); Red Cell Distribution Width-SD 44.2 fL
[2024-08-17 09:59] LABS: Albumin Level 3.2 g/dl (3.5-5.0); Chloride 106 mmol/L (98-107); Potassium 4.3 mmoL/L (3.5-5.1); Sodium 133 mmol/L (136-145)
[2024-08-17 10:02] LABS: Alanine Aminotransferase 35 U/L (12-78); Albumin/Globulin Ratio 1.2 (1.1-1.8); Alkaline Phosphatase 100 U/L (38-126); Anion Gap 10.3 mEq/L (5-15); Aspartate Amino Transferase 26 U/L (17-59); Bilirubin,Total 0.7 mg/dl (0.2-1.3); Blood Urea Nitrogen 29 mg/dl (9-20); Calcium 9.2 mg/dl (8.4-10.2); Carbon Dioxide 21 mmol/L (22.0-30.0); Creatinine Clearance Estimated 93 mL/min (50-200); Estimated Glomerular Filt Rate 82 ml/min (>60); GFR (African American) 99 ML/MIN (>60); Globulin 2.7 g/dL (1.3-3.2); Glucose 192 mg/dl (74-100); Total Protein,Serum 5.9 g/dl (6.3-8.2)
[2024-08-18 07:19] LABS: Osmolality, Urine 255 mOsmol/kg (.)
== END 2024-08-17 10:52 | DRG 58 ==
LOC: ER 09:49 → 2ND 11:18
PROVIDERS: Admitting Provider Student in an Organized Health Care Education/Training Program; Emergency Provider Student in an Organized Health Care Education/Training Program; PCP Family Medicine; Visit Provider Student in an Organized Health Care Education/Training Program
DX: G35 Multiple sclerosis (principal); G92.8 Other toxic encephalopathy; J18.8 Other pneumonia, unspecified organism; E87.1 Hypo-osmolality and hyponatremia; N39.0 Urinary tract infection, site not specified; J44.0 Chronic obstructive pulmonary disease with (acute) lower respiratory infection; E11.9 Type 2 diabetes mellitus without complications; Z79.84 Long term (current) use of oral hypoglycemic drugs; H91.90 Unspecified hearing loss, unspecified ear; N40.1 Benign prostatic hyperplasia with lower urinary tract symptoms; N39.498 Other specified urinary incontinence; C61 Malignant neoplasm of prostate; H35.30 Unspecified macular degeneration; K21.9 Gastro-esophageal reflux disease without esophagitis; I10 Essential (primary) hypertension; E78.5 Hyperlipidemia, unspecified; B96.5 Pseudomonas (aeruginosa) (mallei) (pseudomallei) as the cause of diseases classified elsewhere; M17.11 Unilateral primary osteoarthritis, right knee; R53.81 Other malaise; R26.2 Difficulty in walking, not elsewhere classified; Z74.1 Need for assistance with personal care; K59.00 Constipation, unspecified; T50.905A Adverse effect of unspecified drugs, medicaments and biological substances, initial encounter; L89.152 Pressure ulcer of sacral region, stage 2; K52.9 Noninfective gastroenteritis and colitis, unspecified; Z99.89 Dependence on other enabling machines and devices; Z96.651 Presence of right artificial knee joint; Z90.49 Acquired absence of other specified parts of digestive tract; Z82.5 Family history of asthma and other chronic lower respiratory diseases; Z83.3 Family history of diabetes mellitus; Z80.9 Family history of malignant neoplasm, unspecified; Z82.49 Family history of ischemic heart disease and other diseases of the circulatory system; Z83.438 Family history of other disorder of lipoprotein metabolism and other lipidemia; Z87.891 Personal history of nicotine dependence; Z79.82 Long term (current) use of aspirin; Z79.899 Other long term (current) drug therapy
CPT/HCPCS: 36415; 71045; 80048; 80053; 81001; 82607; 82728; 82746; 82962; 83540; 83550; 83735; 83930; 83935; 84145; 84443; 84540; 85025; 85610; 86803; 87040; 87070; 87086; 87088; 87186; 87205; 87389; 97110; 97530; 99285; J0456; J1650; J2543; J2919; J7030; J7050

== ENCOUNTER 2024-09-02 09:05 | Emergency (ER) | payer OTHER, SELFPAY ==
--- OUTSIDE RECORDS SUMMARY | 2024-08-16 05:44 | XMS_ITS | Encounter Summary ---
Author Name [facility] [place] [facility] [place] Address [address] [place] [address] Care Team Providers Care Center Punch Operator Name Role Phone YULISSA HENDERSON Primary [...] PLAN F Mar 24, 2014 PLAN F [id number] LUIS MANUEL PERDOMO PATIENT BS [place] [employer] PREFERRED PROVIDER ORGANIZAT ION (PPO) [facility] SLE Sep 21, 2012 [id number] LUIS MANUEL PERDOMO PATIENT [employer] ([id number]) PRESCRIPT ION [id number] Sep 21, 2012 [id number] [phone] LUIS MANUEL PERDOMO PATIENT MEDICARE (WNR) MEDICARE (M) PART B Sep 21, 2012 PART B [id number] [phone] NOEMI PERDOMO PATIENT MEDICARE (WNR) MEDICARE (M) PART A Jan 22, 2011 PART A [id number] NOEMI PERDOMO PATIENT MEDICARE PART D (WNR) MEDICARE (M) PART D Mar 24, 2014 PART D [id number] LUIS MANUEL PERDOMO PATIENT Selected Encounter This section includes the information on record at [place] for the Encounter. Date/Time Encounter Type Encounter Description Reason Pro vider Source August 16, 2024 09:44 AM Outpatient Encounter TELEPHONE TRIAGE IHE Encounter Template Text not used by [place] Plan of Treatment: Future Appointments (+ 6 months) and Future Tests (+/- 45 days) The Plan of Treatment section includes future care activities for the [facility] [place] [facility] This section includes future appointments and future orders which are active, pending or scheduled. Future Appointments This section includes appointments that were scheduled to occur 6 months from the date of the Encounter, up to a maximum of 20 appointments. The data comes from all [place] treatment facilities. Appointment Date/Time Appointment Type Appointme nt Facility Name Aug 29, 2024 07:38 PM AMBULATORY - MEDICINE [facility] Aug 29, 2024 09:00 PM AMBULATORY - NONE [facility] Sep 30, 2024 01:30 PM AMBULATORY - SURGERY [facility] Active, Pending, and Scheduled Orders This section includes a listing of several types of active, pending, and scheduled orders, including clinic medications orders, diagnostic test orders, procedure orders and consult orders; where the start date of the order is 45 days before the date of the Encounter or 45 days after the date of theEncounter. The data comes from all [facility]. Test Date/Time Test Type Test Details Facility Name Aug 29, 2024 09:55 PM Laboratory - Chemi stry Order HIGH SENSITIVITY TROPONIN I [id number] STAT WC ONCE [facility] Lab Results: +/- 30 days of the encounter This section includes the Chemistry and Hematology Lab Results on record with [place] for the patient. Radiology Reports and Pathology Reports are provided separately, in subsequent sections. Lab Results This section contains the Chemistry/Hematology Results that were resulted 30 days before or 30 daysafter the date of the Encounter. Date/Time Source Result Type Result - Unit Interpretation Reference Range Specimen Type Comment Aug 29, 2024 10:04 PM [facility] URINALYSIS WITH REFLEX TO CULTURE URINE Speci men Type: URINE Comment: ~For Test: URINALYSIS WITH REFLEX TO CULTURE ~REORDER Ordering Provider: FELISA COLE Report Released Date/Time: Aug 29, 2024 09:36 PM Reporting Lab: [address] [address] Performing Lab: [address] [address] URINE COLOR Yellow Colorless-Yellow APPEARANCE Clear Clear [...] /[LPF] 0-28 Aug 29, 2024 08:32 PM [facility] HIGH SENSITIVITY TROPONIN I PLASMA Specimen Ty [...] Aug 29, 2024 07:55 PM Reporting Lab: [facility] [address] [address] Performing Lab: [address] [address] HIGH SENSITIVITY TROPONIN I 7 4-35 Aug 29, 2024 08:32 PM [facility] CBC/PLT BLOOD Specimen Type: BLOOD No comment entered. Ordering Provider: FELISA COLE Report Released Date/Time: Aug 29, 2024 07:55 PM Reporting Lab: [address] [address] Performing Lab: [address] [address] WBC 11.2 10*3/uL H 5.0-10.0 RBC 3.97 10*6/uL L 4.6-6.2 HGB 10.9 g/dL L 14.0-18.0 HCT 33.5 L 42.0-52.0 MCV 84.4 fL 80.0-94.0 MCH 27.5 pg 27.0-31.0 MCHC 32.5 g/dL 32.0-36.0 PLT 230 10*3/uL 150-450 MPV 10.2 fL 9.0-13.1 RDW 14.6 11.0-16.0 NRBC 0.0 0.0-0.0 Aug 29, 2024 08:32 PM [facility] PANEL 5 PLASMA Specimen Type: PLASM [...] I information resource can be reached in [facility] in the Tools menu, under the [...] Aug 29, 2024 07:55 PM Reporting Lab: [address] [address] Performing Lab: [address] [address] CREATININE 0.85 mg/dL 0.72-1.25 UREA NITROGEN 15 [...] ALL of a patient's completed or amended [place] Advance and Rescinded Directives. The entries below indicate that a directive exists for the patient, but an actual copy is not included with this document. The data comes from all [place] facilities. Date Advance Directives Provider Source Mar 08, 2024 ADVANCE DIRECTIVE DISCUSSION [facility] Radiology Reports: +/- 30 days of [...] the Encounter. The data comes from all [place] treatment facilities. Date/Time Radiology Report Provider Source Aug 29, 2024 08:[address] HEAD W/O CONT: LEANNELUIS MANUEL PERALTA [id number] -[id number] M Exm Date: AUG 29, 2024@20:28 Req Phys: FELISA COLE Loc: ED/4P-12A (Req'g Loc) Img Loc: CT SCAN Service: [place] [address] (Case [id number] COMPLETE) CT HEAD W/O CONT (CT Detailed) CPT:77793 Reason for Study: SEE CLINICAL HISTORY Clinical History: REASON FOR SEND OUT: ATTENDING PHYSICIAN NAME: New transient neurological s/s - suspected TIA HISTORY/REASON FOR EXAM: confusion Report Status: Verified Date Reported: AUG 29, 2024 Date Verified: AUG 29, 2024 Embossing Tool Setter E-Sig: Report: HISTORY confusion COMPARISON No prior [...] appearance. Calvarium is intact Electronically signed by: Christopher Davidson MD (August 29 2024 09:36 PM EST) Impression: No acute intracranial pathology. Primary Diagnostic Code: NO ALERT REQUIRED Primary Interpreting Staff: CHRISTOPHER DAVIDSON Staff Physician Verified by recreational sports director for CHRISTOPHER DAVIDSON /[facility] Pathology Reports: +/- 30 days of the [...] the Encounter. The data comes from all [place] treatment facilities. Date/Time Pathology Report Provider Source Aug 29, 2024 10:18 PM LR MICROBIOLOGY RE PORT: Reporting Lab: [facility] [CLIA# [id number]] [address] [place] [address] Accession [UID]: [id number] [[id number]] Received: Aug 29, 2024@22:18 Collection sample: URINE, CLEAN CATCH Collection date: Aug 29, 2024 22:18 Site/Specimen: URINE Provider: FELISA COLE Test(s) ordered: CULTURE, URINE................ completed: Aug 31, 2024 09:51 * BACTERIOLOGY FINAL REPORT => Aug 31, 2024 09:51 TECH CODE: [id number] Bacteriology Remark(s): NO GROWTH 08/30/2024 <10,000 CFU/ML. 08/31/2024 =--=--=--=--=--=--=--=--=--=-- =--=--=--=--=--=--=--=--=--=-- =--=--=--=--=--=-- Performing Laboratory: Bacteriology Report Performed By: [facility] [CLIA# [id number]] [address] [place] [address] MAGDY CALABRESE [facility] Encounter Notes: All associated encounter notes This section contains the clinical notes associated to the Encounter. Date/Time Encounter Note(s) Provider Source August 16, 2024 09:44 AM RN PROGRESS NOTE: LOCAL TITLE: [facility]: CLINICAL TRIAGE STANDARD TITLE: RN PROGRESS NOTE DATE OF NOTE: AUGUST 16, 2024@09:44:08 ENTRY DATE: AUGUST 16, 2024@09:44:09 AUTHOR: AMY ORTIZ EXP COSIGNER: URGENCY: STATUS: COMPLETED Caller Verification Caller/Recipient Relation to Patient: Other If Other Describe Relation to Patient: Caller Name: Celena Emergency Contact: CELENA PERDOMO Nursing Plan and Disposition Other course(s) of action Generated msg to PACT/Provider Nurse Summary Nurse Summary: 's Celena called [facility] triage to request a note be left to his PCP. is currently in the hospital at [facility], she asks that care team please call her w/ any questions. Provided community [facility] phone number to call within 72 hrs of being seen, denies further assistance at this time. Non-Triage/Non-Symptom Call Generated msg to PACT/Provider-NonTriage Clinical Contact Center Codes Clinic/Location: V9 AAMIR PHONE CCC RN IMPORTANT: This note was created by [facility] Clinical Contact Center staff. Please do not alert the staff member by adding them as a signer for future communications. Alerts are not monitored by this user. /rosette/ AMY ORTIZ Signed: 08/16/2024 09:44 Receipt Acknowledged By: 08/16/2024 14:46 /es/ YULISSA HENDERSON APRN ADVANCED PRACTICE REGISTERED NURSE, [facility] 08/17/2024 07:57 /es/ AMY DE LA [place]-CDD [facility]
--- OUTSIDE RECORDS SUMMARY | 2024-08-17 03:57 | XMS_ITS ---
Author Name [facility] [place] Organization [facility] [place] Address [address] [place] [id number] Care Team Providers Care Sanitation Superintendent Name Role Phone YULISSA HENDERSON Primary Care [...] PLAN F Mar 24, 2014 PLAN F [id number] [phone] LUIS MANUEL PERDOMO PATIENT [facility] [place] [facility] PREFERRED PROVIDER ORGANIZAT ION (PPO) [facility] Sep 21, 2012 [id number] [phone] LUIS MANUEL PERDOMO PATIENT [employer] ([id number]) PRESCRIPT ION [id number] Sep 21, 2012 [id number] LUIS MANUEL PERDOMO PATIENT MEDICARE (WNR) MEDICARE (M) PART B Sep 21, 2012 PART B [id number] NOEMI PERDOMO PATIENT MEDICARE (WNR) MEDICARE (M) PART A Jan 22, 2011 PART A [id number] NOEMI PERDOMO PATIENT MEDICARE PART D (WNR) MEDICARE (M) PART D Mar 24, 2014 PART D [id number] LUIS MANUEL PERDOMO PATIENT Selected Encounter This section includes the information on record at [place] for the Encounter. Date/Time Encounter Type Encounter Description Reason Pro vider Source August 17, 2024 07:57 AM Outpatient Encounter [facility] Nursing (RN / LP) IHE Encounter Template [...] 20 appointments. The data comes from all [facility] facilities. Appointment Date/Time Appointment Type Appointme nt Facility Name Aug 29, 2024 07:38 PM AMBULATORY - MEDICINE [facility] Aug 29, 2024 09:00 PM AMBULATORY - NONE [facility] Sep 30, 2024 01:30 PM AMBULATORY - SURGERY [facility] Active, Pending, and Scheduled Orders This section includes a listing of several types of active, pending, and scheduled orders, including clinic medications orders, diagnostic test orders, procedure orders and consult orders; where thestart date of the order is 45 days before the date of the Encounter or 45 days after the date of the Encounter. The data comes from all [facility]. Test Date/Time Test Type Test Details Facility Name Aug 29, 2024 09:55 PM Laboratory - Chemi stry Order HIGH SENSITIVITY TROPONIN I [id number] STAT WC ONCE [facility] Lab Results: +/- 30 days of [...] Type Comment Aug 29, 2024 10:04 PM [facility] URINALYSIS WITH REFLEX TO CULTURE URINE Speci men Type: URINE Comment: ~For Test: URINALYSIS WITH REFLEX TO CULTURE ~REORDER Ordering Provider: FELISA COLE Report Released Date/Time: Aug 29, 2024 09:36 PM Reporting Lab: [address] [address] Performing Lab: [address] [address] URINE COLOR Yellow Colorless-Yellow APPEARANCE Clear Clear [...] /[LPF] 0-28 Aug 29, 2024 08:32 PM [facility] HIGH SENSITIVITY TROPONIN I PLASMA Specimen [...] Aug 29, 2024 07:55 PM Reporting Lab: [facility] [address] [address] Performing Lab: [address] [address] HIGH SENSITIVITY TROPONIN I 7 4-35 Aug 29, 2024 08:32 PM [facility] CBC/PLT BLOOD Specimen Type: BLOOD No comment entered. Ordering Provider: FELISA COLE Report Released Date/Time: Aug 29, 2024 07:55 PM Reporting Lab: [address] [address] Performing Lab: [address] [address] WBC 11.2 10*3/uL H 5.0-10.0 RBC 3.97 10*6/uL L 4.6-6.2 HGB 10.9 g/dL L 14.0-18.0 HCT 33.5 L 42.0-52.0 MCV 84.4 fL 80.0-94.0 MCH 27.5 pg 27.0-31.0 MCHC 32.5 g/dL 32.0-36.0 PLT 230 10*3/uL 150-450 MPV 10.2 fL 9.0-13.1 RDW 14.6 11.0-16.0 NRBC 0.0 0.0-0.0 Aug 29, 2024 08:32 PM [facility] PANEL 5 PLASMA Specimen Type: PLASM [...] I information resource can be reached in [facility] in the Tools menu, under the Education [...] Aug 29, 2024 07:55 PM Reporting Lab: [facility] [address] [facility] [address] Performing Lab: [address] [address] CREATININE 0.85 mg/dL 0.72-1.25 UREA NITROGEN 15 [...] 08, 2024 ADVANCE DIRECTIVE DISCUSSION [place] [facility] Radiology Reports: +/- 30 days of [...] CT HEAD W/O CONT: LUIS MANUEL PERDOMO [id number] -[id number] M Exm Date: AUG 29, 2024@20:28 Req Phys: FELISA COLE Loc: ED/4P-12A (Req'g Loc) Img Loc: CT SCAN Service: [place] [address] (Case [id number] COMPLETE) CT HEAD W/O CONT (CT Detailed) CPT:23022 Reason for Study: SEE CLINICAL HISTORY Clinical History: REASON FOR SEND OUT: ATTENDING PHYSICIAN NAME: New transient neurological s/s - suspected TIA HISTORY/REASON FOR EXAM: confusion Report Status: Verified Date Reported: AUG 29, 2024 Date Verified: AUG 29, 2024 Museum Or Zoo Director E-Sig: Report: HISTORY confusion COMPARISON No prior [...] Calvarium is intact Electronically signed by: Abdirahman Davidson MD (August 29 2024 09:36 PM EST) Impression: No acute intracranial pathology. Primary Diagnostic Code: NO ALERT REQUIRED Primary Interpreting Staff: ABDIRAHMAN DAVIDSON Staff Physician Verified by roller man for ABDIRAHMAN DAVIDSON [facility] Pathology Reports: +/- 30 days of [...] comes from all [place] treatment facilities. Date/Time Pathology Report Provider Source Aug 29, 2024 10:18 PM LR MICROBIOLOGY RE PORT: Reporting Lab: [facility] [CLIA# [id number]] [address] [place] [address] Accession [UID]: [id number] [[id number]] Received: Aug 29, 2024@22:18 Collection sample: URINE, CLEAN CATCH Collection date: Aug 29, 2024 22:18 Site/Specimen: URINE Provider: FELISA COLE Test(s) ordered: CULTURE, URINE................ completed: Aug 31, 2024 09:51 * BACTERIOLOGY FINAL REPORT => Aug 31, 2024 09:51 TECH CODE: 65026 Bacteriology Remark(s): NO GROWTH 08/30/2024 <10,000 CFU/ML. 08/31/2024 =--=--=--=--=--=--=--=--=--=-- =--=--=--=--=--=--=--=--=--=-- =--=--=--=--=--=-- Performing Laboratory: Bacteriology Report Performed By: [facility] [CLIA# [id number]] [address] [place] [address] MAGDY CALABRESE [place] Encounter Notes: All associated encounter notes This section contains the clinical notes associated to the Encounter. Date/Time Encounter Note(s) Provider Source August 17, 2024 07:57 AM HOME HEALTH INTERD ISCIPLINARY NOTE: LOCAL TITLE: [facility] INTERDISCIPLINARY PLAN OF CARE STANDARD TITLE: HOME HEALTH INTERDISCIPLINARY NOTE DATE OF NOTE: AUGUST 17, 2024@07:57 ENTRY DATE: AUGUST 17, 2024@07:58 AUTHOR: LYNN ALCOCER EXP COSIGNER: YULISSA HENDERSON URGENCY: STATUS: COMPLETED Admission Date: 03/04/24 Period to cover: 08/17/24-11/14/24 Allergies: NKDA Diet Recommendation: Calorie Controlled/NCS/MICHELLE Activity [...] OA and pain and decreased ROM, decreased digital program manager strength L hand, incontinence, impaired standing balance and activity tolerance ADL deficits: Dressing: assist donning shirt and pants. Toileting: incontinence, wears depends, assist with clothing and cleanup. Bathing: assist seated Prosthetics/equipment/devices : manual w/c, VA ramp, threshold ramp at front door, non-VA hospital bed with memory foam mattress and upper half bed rails, FWW, gaming floor supervisor, leg respiratory director, lift chair, bedside table, stationary exercise pedaler, non-VA bariatric rollator, x1 grab bar on doorframe, x1 grab bar outside shower, x3 grab bars inside shower, fall mat, bed rail, , BSC. On Feb ordered handheld shower, standard F22 rollator, ROHO [id number] mid profile cushion Living arrangements: with spouse Mental Status please see dated 03/04/24 Behavioral concerns-none Patient safety concerns: fall risk Emergency Preparedness Priority Code: 3-LOW Prognosis: fair CODE STATUS: FULL PROBLEM: Patient currently in the hospital. Will discuss and update plan of care accordingly upon discharge. PSA: please place on next weeks staffing schedule. /es/ LYNN ALCOCER RN Signed: 08/17/2024 09:18 /es/ YULISSA HENDERSON APRN ADVANCED PRACTICE REGISTERED NURSE, [facility] Cosigned: 08/17/2024 09:28 Receipt Acknowledged By: 08/17/2024 13:24 /es/ Karen Squires, MSN, RN, CNL HB Concert Promoter/Nurse Welder Production Line Combination 08/17/2024 09:54 /es/ LYNN JENKINS-CDD [facility]
--- OUTSIDE RECORDS SUMMARY | 2024-08-18 10:48 | XMS_ITS | Encounter Summary ---
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 [place] BLUECARD PREFERRED PROVIDER ORGANIZAT ION (PPO) [facility] Sep 21, 2012 [id number] [phone] LUIS MANUEL PERDOMO PATIENT [employer] ([id number]) PRESCRIPT ION WL3A Sep 21, 2012 [id number] LUIS MANUEL PERDOMO PATIENT MEDICARE (WNR) MEDICARE (M) PART B Sep 21, 2012 PART B [id number] NOEMI PERDOMO PATIENT MEDICARE (WNR) MEDICARE (M) PART A Jan 22, 2011 PART A [id number] [phone] NOEMI PERDOMO PATIENT MEDICARE PART D (WNR) MEDICARE (M) PART D Mar 24, 2014 PART D [id number] LUIS MANUEL PERDOMO PATIENT Selected Encounter This section includes the information on record at [place] for the Encounter. Date/Time Encounter Type Encounter Description Reason Pro vider Source August 18, 2024 02:48 PM Outpatient Encounter ADMIN PAT ACTIVTIES (MASNONCT) IHE Encounter Template Text not used by [place] Plan of Treatment: Future Appointments (+ 6 months) and Future Tests (+/- 45 days) The Plan of Treatment section includes future care activities for the patient [facility] [place] [facility]. This section includes future appointments [...] 29, 2024 07:38 PM AMBULATORY - [facility]ICINE [facility] Aug 29, 2024 09:00 PM AMBULATORY - NONE [place] [facility] Sep 30, 2024 01:30 PM AMBULATORY - SURGERY [place] [facility] Active, Pending, and Scheduled Orders This section includes a listing of several types of active, pending, and scheduled orders, including clinic medications orders, diagnostic test orders, procedure orders and consult orders; where the start date of the order is 45 days before the date of the Encounter or 45 days after the date of theEncounter. The data comes from all [place] treatment [facility]. Test Date/Time Test Type Test Details Facility Name Aug 29, 2024 09:55 PM Laboratory - Chemi stry Order HIGH SENSITIVITY TROPONIN I [id number] STAT WC ONCE [facility] Lab Results: +/- 30 days of the encounter This section includes the Chemistry and Hematology Lab Results on record with [place] for the patient. Radiology Reports and Pathology Reports are provided separately, in subsequent sections. Lab Results This section contains the Chemistry/Hematology Results that were resulted 30 days before or 30 daysafter the date of the Encounter. Date/Time Source Result Type Result - Unit Interpretation Reference Range Specimen Type Comment Aug 29, 2024 10:04 PM [facility] URINALYSIS WITH REFLEX TO CULTURE URINE Speci men Type: URINE Comment: ~For Test: URINALYSIS WITH REFLEX TO CULTURE ~REORDER Ordering Provider: FLEISA COLE Report Released Date/Time: Aug 29, 2024 09:36 PM Reporting Lab: [address] [address] Performing Lab: [address] [address] URINE COLOR Yellow Colorless-Yellow APPEARANCE Clear Clear [...] /[LPF] 0-28 Aug 29, 2024 08:32 PM [facility] HIGH SENSITIVITY TROPONIN I PLASMA Specimen Ty [...] Aug 29, 2024 07:55 PM Reporting Lab: [place] [address] Performing Lab: [address] [address] HIGH SENSITIVITY TROPONIN I 7 4-35 Aug 29, 2024 08:32 PM [facility] CBC/PLT BLOOD Specimen Type: BLOOD No comment entered. Ordering Provider: FELISA COLE Report Released Date/Time: Aug 29, 2024 07:55 PM Reporting Lab: [address] [address] Performing Lab: [address] [address] WBC 11.2 10*3/uL H 5.0-10.0 RBC 3.97 10*6/uL L 4.6-6.2 HGB 10.9 g/dL L 14.0-18.0 HCT 33.5 L 42.0-52.0 MCV 84.4 fL 80.0-94.0 MCH 27.5 pg 27.0-31.0 MCHC 32.5 g/dL 32.0-36.0 PLT 230 10*3/uL 150-450 MPV 10.2 fL 9.0-13.1 RDW 14.6 11.0-16.0 NRBC 0.0 0.0-0.0 Aug 29, 2024 08:32 PM [facility] PANEL 5 PLASMA Specimen Type: PLASM A [...] I information resource can be reached in [facility] in the Tools menu, under the Education [...] Aug 29, 2024 07:55 PM Reporting Lab: [address] [address] Performing Lab: [address] [address] CREATININE 0.85 mg/dL 0.72-1.25 UREA NITROGEN 15 [...] PHOS 97 U/L 40-150 eGFR (CKD-EPI) 89 Social History: Smoking Status (Most current) and Tobacco Use (All prior to encounter date) This section includes the most current, and the historical, smoking and tobacco- related health factors from the [place] facility where the Encounter took place. Current Smoking Status This section includes the most current smoking, or tobacco-related health factor, from the [place] facility where the Encounter took place. Date/Time Current Smoking Status Comment Gabriel itelva Feb 06, 2024 10:00 AM VA-TOBACCO USER SOME DAYS [facility] Tobacco Use History This section includes a history of the smoking, or tobacco-related health factors, that were collected on or before the date of the Encounter. The data comes from the [place] facility where the Encounter took place. 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 The data comes from all [facility]. Date Advance Directives Provider Source Mar 08, 2024 ADVANCE DIRECTIVE DISCUSSION RUBIN HILL [facility] Radiology Reports: +/- 30 days [...] the Encounter. The data comes from all [place] treatment facilities. Date/Time Radiology Report Provider Source Aug 29, 2024 08:[address] HEAD W/O CONT: LUIS MANUEL PERDOMO [id number] -[id number] M Exm Date: AUG 29, 2024@20:28 Req Phys: FELISA COLE Loc: ED/4P-12A (Req'g Loc) Img Loc: CT SCAN Service: [place] [address] (Case [id number] COMPLETE) CT HEAD W/O CONT (CT Detailed) CPT:38834 Reason for Study: SEE CLINICAL HISTORY Clinical History: REASON FOR SEND OUT: ATTENDING PHYSICIAN NAME: New transient neurological s/s - suspected TIA HISTORY/REASON FOR EXAM: confusion Report Status: Verified Date Reported: AUG 29, 2024 Date Verified: AUG 29, 2024 Drag Car Racer E-Sig: Report: HISTORY confusion COMPARISON No prior [...] NO ALERT REQUIRED Primary Interpreting Staff: CHRISTOPHER DAVIDSON, Staff Physician Verified by commercial drone software developer for CHRISTOPHER DAVIDSON /[facility]STOPHER [facility] Pathology Reports: +/- 30 days of [...] the Encounter. The data comes from all [place] treatment facilities. Date/Time Pathology Report Provider Source Aug 29, 2024 10:18 PM LR MICROBIOLOGY RE PORT: Reporting Lab: [facility] [CLIA# [id number]] [address] [place] [id number] Accession [UID]: [id number] [[id number]] Received: Aug 29, 2024@22:18 Collection sample: URINE, CLEAN CATCH Collection date: Aug 29, 2024 22:18 Site/Specimen: URINE Provider: FELISA COLE Test(s) ordered: CULTURE, URINE................ completed: Aug 31, 2024 09:51 * BACTERIOLOGY FINAL REPORT => Aug 31, 2024 09:51 TECH CODE: [id number] Bacteriology Remark(s): NO GROWTH 08/30/2024 <10,000 CFU/ML. 08/31/2024 =--=--=--=--=--=--=--=--=--=-- =--=--=--=--=--=--=--=--=--=-- =--=--=--=--=--=-- Performing Laboratory: Bacteriology Report Performed By: [facility] [CLIA# [id number]] [address] [place] [address] MAGDY CALABRESE [facility] Encounter Notes: All associated encounter notes This section contains the clinical notes associated to the Encounter. Date/Time Encounter Note(s) Provider Source August 13, 2024 02:48 PM NONVA NOTE: LOCAL TITLE: OUTSIDE MEDICAL RECORD-FEE OUTPATIENT STANDARD TITLE: NONVA NOTE DATE OF NOTE: AUGUST 13, 2024@14:48 ENTRY DATE: AUGUST 18, 2024@14:48:46 AUTHOR: DARLENE LANDEROS EXP COSIGNER: URGENCY: STATUS: COMPLETED The scanned document may be viewed in [employer]. /rosette/ DARLENE LANDEROS DEVELOPMENT SYSTEM EFFICIENCY MANAGER Signed: 08/18/2024 14:49 [facility]
--- OUTSIDE RECORDS SUMMARY | 2024-08-19 10:19 | XMS_ITS | Encounter Summary ---
Author Name Department of Vetera ns Affairs ([place]) Organization Department of Vetera Affairs [place] Address [address] [place] [address] Care Team Providers Care Tap And Die Maker Technician Name Role Phone YULISSA HENDERSON Primary [...] PLAN F Mar 24, 2014 PLAN F [id number] LUIS MANUEL PERDOMO PATIENT [facility] [place] BLU[employer] PREFERRED PROVIDER ORGANIZAT ION (PPO) [facility] Sep 21, 2012 [id number] [phone] LUIS MANUEL PERDOMO PATIENT [employer] ([id number]) PRESCRIPT ION WL3A Sep 21, 2012 [id number] LUIS MANUEL PERDOMO PATIENT MEDICARE (WNR) MEDICARE (M) PART B Sep 21, 2012 PART B [id number] NOEMI PERDOMO PATIENT MEDICARE (WNR) MEDICARE (M) PART A Jan 22, 2011 PART A [id number] NOEMI PERDOMO PATIENT MEDICARE PART D (WNR) MEDICARE (M) PART D Mar 24, 2014 PART D [id number] LUIS MANUEL PERDOMO PATIENT Selected Encounter This section includes the information on record at OR for the Encounter. Date/Time Encounter Type Encounter Description Reason Pro vider Source August 19, 2024 02:19 PM Outpatient Encounter ADMIN PAT ACTIVTIES (MASNONCT) IHE Encounter Template Text not used by OR Plan of Treatment: Future Appointments (+ 6 months) and Future Tests (+/- 45 days) The Plan of Treatment section includes future care activities for the [facility]. This section includes future appointments and future [...] 29, 2024 07:38 PM AMBULATORY - MEDICINE IONAPSYCHIATRIC Aug 29, 2024 09:00 PM AM[place]ULATORY - NONE [place] [facility] Sep 30, 2024 01:30 PM AMBULATORY - SURGERY [place] [facility] Active, Pending, and Scheduled Orders This section includes a listing of several types of active, pending, and scheduled orders, including clinic medications orders, diagnostic test orders, procedure orders and consult orders; where the start date of the order is 45 days before the date of the Encounter or 45 days after the date of theEncounter. The data comes from all [place] treatment facilities. Test Date/Time Test Type Test Details Facility Name Aug 29, 2024 09:55 PM Laboratory - Chemi stry Order HIGH SENSITIVITY TROPONIN I [id number] STAT WC ONCE [facility] Lab Results: +/- 30 days of the encounter This section includes the Chemistry and Hematology Lab Results on record with OR for the patient. Radiology Reports and Pathology Reports are provided separately, in subsequent sections. Lab Results This section contains the Chemistry/Hematology Results that were resulted 30 days before or 30 daysafter the date of the Encounter. Date/Time Source Result Type Result - Unit Interpretation Reference Range Specimen Type Comment Aug 29, 2024 10:04 PM [facility] URINALYSIS WITH REFLEX TO CULTURE URINE Speci men Type: URINE Comment: ~For Test: URINALYSIS WITH REFLEX TO CULTURE ~REORDER Ordering Provider: FELISA COLE Report Released Date/Time: Aug 29, 2024 09:36 PM Reporting Lab: [address] [address] Performing Lab: [address] [address] URINE COLOR Yellow Colorless-Yellow APPEARANCE Clear Clear [...] 29, 2024 08:32 PM [facility] HIGH SENSITIVITY TROPONIN I PLASMA Specimen [...] Aug 29, 2024 07:55 PM Reporting Lab: [place] [address] Performing Lab: [address] [address] HIGH SENSITIVITY TROPONIN I 7 4-35 Aug 29, 2024 08:32 PM [facility] CBC/PLT BLOOD Specimen Type: BLOOD No comment entered. Ordering Provider: FELISA COLE Report Released Date/Time: Aug 29, 2024 07:55 PM Reporting Lab: [address] [address] Performing Lab: [address] [address] WBC 11.2 10*3/uL H 5.0-10.0 RBC 3.97 10*6/uL L 4.6-6.2 HGB 10.9 g/dL L 14.0-18.0 HCT 33.5 L 42.0-52.0 MCV 84.4 fL 80.0-94.0 MCH 27.5 pg 27.0-31.0 MCHC 32.5 g/dL 32.0-36.0 PLT 230 10*3/uL 150-450 MPV 10.2 fL 9.0-13.1 RDW 14.6 11.0-16.0 NRBC 0.0 0.0-0.0 Aug 29, 2024 08:32 PM [facility] PANEL 5 PLASMA Specimen Type: PLASM [...] I information resource can be reached in [facility] in the Tools menu, under the [...] Aug 29, 2024 07:55 PM Reporting Lab: [address] [address] Performing Lab: [address] [address] CREATININE 0.85 mg/dL 0.72-1.25 UREA NITROGEN 15 [...] DIRECTIVE DISCUSSION RUBIN HILL [facility] Radiology Reports: +/- 30 days of [...] the Encounter. The data comes from all [place] treatment facilities. Date/Time Radiology Report Provider Source Aug 29, 2024 08:[address] HEAD W/O CONT: LUIS MANUEL PERDOMO [id number] -1945 M Exm Date: AUG 29, 2024@20:28 Req Phys: FELISA COLE Loc: ED/4P-12A (Req'g Loc) Img Loc: CT SCAN Service: [place] [address] (Case [id number] COMPLETE) CT HEAD W/O CONT (CT Detailed) CPT:74522 Reason for Study: SEE CLINICAL HISTORY Clinical History: REASON FOR SEND OUT: ATTENDING PHYSICIAN NAME: New transient neurological s/s - suspected TIA HISTORY/REASON FOR EXAM: confusion Report Status: Verified Date Reported: AUG 29, 2024 Date Verified: AUG 29, 2024 Legal Officer E-Sig: Report: HISTORY confusion COMPARISON No prior [...] Staff: CHRISTOPHER DAVIDSON Staff Physician Verified by tax commissioner for CHRISTOPHER DAVIDSON /CHRISTOPHER ROJAS [facility] Pathology Reports: +/- 30 days of the [...] the Encounter. The data comes from all [place] treatment facilities. Date/Time Pathology Report Provider Source Aug 29, 2024 10:18 PM LR MICROBIOLOGY RE PORT: Reporting Lab: [facility] [CLIA# [id number]] [address] [place] [address] Accession [UID]: [id number] [[id number]] Received: Aug 29, 2024@22:18 Collection sample: URINE, CLEAN CATCH Collection date: Aug 29, 2024 22:18 Site/Specimen: URINE Provider: FELISA COLE Test(s) ordered: CULTURE, URINE................ completed: Aug 31, 2024 09:51 * BACTERIOLOGY FINAL REPORT => Aug 31, 2024 09:51 TECH CODE: [id number] Bacteriology Remark(s): NO GROWTH 08/30/2024 <10,000 CFU/ML. 08/31/2024 =--=--=--=--=--=--=--=--=--=-- =--=--=--=--=--=--=--=--=--=-- =--=--=--=--=--=-- Performing Laboratory: Bacteriology Report Performed By: [facility] [CLIA# [id number]] [address] [place] [address] MAGDY CALABRESE [facility] Encounter Notes: All associated encounter notes This section contains the clinical notes associated to the Encounter. Date/Time Encounter Note(s) Provider Source August 19, 2024 02:19 PM ADMINISTRATIVE NOT E: LOCAL TITLE: CLERICAL/ADMIN NOTE STANDARD TITLE: ADMINISTRATIVE NOTE DATE OF NOTE: AUGUST 19, 2024@14:19 ENTRY DATE: AUGUST 19, 2024@14:19:33 AUTHOR: FATOUMATA JASSO EXP COSIGNER: URGENCY: STATUS: COMPLETED Attempted to call pts back to reschedule Ortho LVM will try again. /rosette/ Fatoumata Jasso Advanced Stencil Inspector Signed: 08/19/2024 14:20 FATOUMATA JASSOREDWOOD LLC
--- OUTSIDE RECORDS SUMMARY | 2024-08-27 11:21 | XMS_ITS | Encounter Summary ---
Author Name Department of Veter[place] Organization Department [place] Address [address] [place] [address] Care Team Providers Care Floor Care Specialist Name Role Phone YULISSA HENDERSON Primary Care [...] PLAN F Mar 24, 2014 PLAN F [id number] LUIS MANUEL PERDOMO PATIENT [facility] [place] PREFERRED PROVIDER ORGANIZAT ION (PPO) [facility] Sep 21, 2012 [id number] LUIS MANUEL PERDOMO PATIENT [employer] ([id number]) PRESCRIPT ION WL3A Sep 21, 2012 [id number] [id number] LUIS MANUEL PERDOMO PATIENT MEDICARE (WNR) MEDICARE (M) PART B Sep 21, 2012 PART B [id number] NOEMI PERDOMO PATIENT MEDICARE (WNR) MEDICARE (M) PART A Jan 22, 2011 PART A [id number] NOEMI PERDOMO PATIENT MEDICARE PART D (WNR) MEDICARE (M) PART D Mar 24, 2014 PART D [id number] LUIS MANUEL PERDOMO PATIENT Selected Encounter This section includes the information on record at [place] for the Encounter. Date/Time Encounter Type Encounter Description Reason Pro vider Source Aug 27, 2024 03:21 PM Outpatient Encounter ADMIN PAT ACTIVTIES (MASNONCT) IHE Encounter Template Text not used by [place] Plan of Treatment: Future Appointments (+ 6 months) and Future Tests (+/- 45 days) The Plan of Treatment section includes future care activities for the patient [facility] [place] [facility]. This section includes future appointments and [...] 29, 2024 07:38 PM [facility] Aug 29, 2024 09:00 PM [facility]ORY - NONE [place] [facility] Sep 30, 2024 01:30 PM AMBULATORY - SURGERY [place] [facility] Active, Pending, and Scheduled Orders This section includes a listing of several types of active, pending, and scheduled orders, including clinic medications orders, diagnostic test orders, procedure orders and consult orders; where the start date of the order is 45 days before the date of the Encounter or 45 days after the date of theEncounter. The data comes from all [place] treatment facilities. Test Date/Time Test Type Test Details Facility Name Aug 29, 2024 09:55 PM Laboratory - Chemi stry Order HIGH SENSITIVITY TROPONIN I [id number] STAT WC ONCE [facility] Lab Results: +/- 30 days of [...] Type Comment Aug 29, 2024 10:04 PM [facility] URINALYSIS WITH REFLEX TO CULTURE URINE Speci men Type: URINE Comment: ~For Test: URINALYSIS WITH REFLEX TO CULTURE ~REORDER Ordering Provider: FELISA COLE Report Released Date/Time: Aug 29, 2024 09:36 PM Reporting Lab: [address] [address] Performing Lab: [address] [address] URINE COLOR Yellow Colorless-Yellow APPEARANCE Clear Clear [...] /[LPF] 0-28 Aug 29, 2024 08:32 PM [facility] HIGH SENSITIVITY TROPONIN I PLASMA Specimen [...] Aug 29, 2024 07:55 PM Reporting Lab: [place] [address] Performing Lab: [address] [address] HIGH SENSITIVITY TROPONIN I 7 4-35 Aug 29, 2024 08:32 PM [facility] CBC/PLT BLOOD Specimen Type: BLOOD No comment entered. Ordering Provider: FELISA COLE Report Released Date/Time: Aug 29, 2024 07:55 PM Reporting Lab: [address] [address] Performing Lab: [address] [address] WBC 11.2 10*3/uL H 5.0-10.0 RBC 3.97 10*6/uL L 4.6-6.2 HGB 10.9 g/dL L 14.0-18.0 HCT 33.5 L 42.0-52.0 MCV 84.4 fL 80.0-94.0 MCH 27.5 pg 27.0-31.0 MCHC 32.5 g/dL 32.0-36.0 PLT 230 10*3/uL 150-450 MPV 10.2 fL 9.0-13.1 RDW 14.6 11.0-16.0 NRBC 0.0 0.0-0.0 Aug 29, 2024 08:32 PM [facility] PANEL 5 PLASMA Specimen Type: PLASM [...] I information resource can be reached in [facility] in the Tools menu, under the Education [...] Aug 29, 2024 07:55 PM Reporting Lab: [address] [address] Performing Lab: [address] [address] CREATININE 0.85 mg/dL 0.72-1.25 UREA NITROGEN 15 [...] 08, 2024 ADVANCE DIRECTIVE DISCUSSION RUBIN HILL [facility] Radiology Reports: +/- 30 days of [...] the Encounter. The data comes from all [place] treatment facilities. Date/Time Radiology Report Provider Source Aug 29, 2024 08:[address] HEAD W/O CONT: LUIS MANUEL PERDOMO [id number] -1945 M Exm Date: AUG 29, 2024@20:28 Req Phys: FELISA COLE Loc: ED/4P-12A (Req'g Loc) Img Loc: CT SCAN Service: [place] [address] (Case [id number] COMPLETE) CT HEAD W/O CONT (CT Detailed) CPT:15143 Reason for Study: SEE CLINICAL HISTORY Clinical History: REASON FOR SEND OUT: ATTENDING PHYSICIAN NAME: New transient neurological s/s - suspected TIA HISTORY/REASON FOR EXAM: confusion Report Status: Verified Date Reported: AUG 29, 2024 Date Verified: AUG 29, 2024 Sewer Hand E-Sig: Report: HISTORY confusion COMPARISON No prior [...] Staff: ABDIRAHMAN DAVIDSON Staff Physician Verified by retail store associate for ABDIRAHMAN DAVIDSON /ABDIRAHMAN ROJAS [facility] Pathology Reports: +/- 30 days of [...] the Encounter. The data comes from all [place] treatment facilities. Date/Time Pathology Report Provider Source Aug 29, 2024 10:18 PM LR MICROBIOLOGY RE PORT: Reporting Lab: [facility] [CLIA# [id number]] [address] [place] [address] Accession [UID]: [id number] [[id number]] Received: Aug 29, 2024@22:18 Collection sample: URINE, CLEAN CATCH Collection date: Aug 29, 2024 22:18 Site/Specimen: URINE Provider: FELISA COLE Test(s) ordered: CULTURE, URINE................ completed: Aug 31, 2024 09:51 * BACTERIOLOGY FINAL REPORT => Aug 31, 2024 09:51 TECH CODE: [id number] Bacteriology Remark(s): NO GROWTH 08/30/2024 <10,000 CFU/ML. 08/31/2024 =--=--=--=--=--=--=--=--=--=-- =--=--=--=--=--=--=--=--=--=-- =--=--=--=--=--=-- Performing Laboratory: Bacteriology Report Performed By: [facility] [CLIA# [id number]] [address] [place] [address] MAGDY CALABRESE [facility] Encounter Notes: All associated encounter notes This section contains the clinical notes associated to the Encounter. Date/Time Encounter Note(s) Provider Source August 17, 2024 12:00 PM ADDENDUM: LOCAL TITLE: Addendum STANDARD TITLE: ADDENDUM DATE OF NOTE: AUGUST 17, 2024@12:00 ENTRY DATE: AUG 30, 2024@08:48:40 AUTHOR: BETI VALDEZ EXP COSIGNER: URGENCY: STATUS: COMPLETED VistA Imaging Scanned Document - Addendum. [facility] 08/13-08/17/2024 DC SUMMARY SCANNED DOCUMENT SIGNATURE NOT REQUIRED Electronically Filed: 08/30/2024 by: BETI VALDEZ Interfacility Maintenance Analyst Receipt Acknowledged By: 08/30/2024 10:26 /rosette/ Maribel Murrieta APRN [facility] Nurse Practitioner for YULISSA HENDERSON --- Original Document --- 08/13/24 [facility] SELF PRESENTING CARE COORD PLAN NOTE: Emergency Notification Intake Date Presenting to the Facility: July Date of note has been modified to reflect Date of Service. Reason for modification: HOSPITAL NOTIFICATION DATE/TIME: 08/16/2024 0711 EDT Method of Contact: Notified from ECR worklist Notification ID: [id number] [facility] Referral #: [facility] Name: Hospital: [facility] Address: City: [place] State: [place] Zip Code: Phone : Community Facility Point of Contact: Name: BUCK DUTTA Phone: [phone] Chief complaint: HYPONATREMIA, PNEUMONIA, UTI, MS RELAPSE Primary Diagnosis: Disposition Admitted Route of Admission: ER Date of Admission: July Admitting Diagnosis: HYPONATREMIA, PNEUMONIA Community Care Provider: Confirm Level of Care: Acute Inpatient Care /rosette/ Gretchen Babb MSN, offset printer Nurse Coordinator Signed: 08/27/2024 15:24 Receipt Acknowledged By: 08/27/2024 16:21 /rosette/ YULISSA HENDERSON APRN ADVANCED PRACTICE REGISTERED NURSE, [facility] 08/27/2024 ADDENDUM STATUS: COMPLETED PROVIDER CONTACT REQUEST TO FAX NUMBER LISTED ON ECR: [phone] PLEASE CALL THE [facility] TRANSFER OFFICE ([phone]) AND PROVIDE A CLINICAL UPDATE FOR THE ON THE ATTACHED FAX. IF THE IS STABLE FOR TRANSFER, PLEASE CALL THE [facility] TRANSFER OFFICE FOR AVAILABLITY AT: [phone] IF IS DISHCHARGED FROM THIS EPISODE OF CARE, PLEASE FAX DC SUMMARY TO: [phone] /rosette/ Gretchen Babb MSN, offset printer Nurse Coordinator Signed: 08/27/2024 15:25 BETI VALDEZ-[facility] August 13, 2024 11:14 AM NONVA NOTE: LOCAL TITLE: COMMUNITY C[facility] SELF PRESENTING CARE COORD PLAN STANDARD TITLE: NONVA NOTE DATE OF NOTE: AUGUST 13, 2024@11:14 ENTRY DATE: AUG 27, 2024@15:22:07 AUTHOR: BABB,GRETCHEN M EXP COSIGNER: URGENCY: STATUS: COMPLETED COMMUNITY CARE-[facility] SELF PRESENTING CARE COORD PLAN NOTE Has ADDENDA Emergency Notification Intake Date Presenting to the Facility: July Date of note has been modified to reflect Date of Service. Reason for modification: HOSPITAL NOTIFICATION DATE/TIME: 08/16/2024 0711 EDT Method of Contact: Notified from ECR worklist Notification ID: [id number] Referral #: [facility] Name: Hospital: [facility] Address: City: [place] State: [place] Zip Code: Phone : [facility] Point of Contact: Name: BUCK DUTTA Phone: [phone] Chief complaint: HYPONATREMIA, PNEUMONIA, UTI, MS RELAPSE Primary Diagnosis: Disposition Admitted Route of Admission: ER Date of Admission: July Admitting Diagnosis: HYPONATREMIA, PNEUMONIA Community Care Provider: Luz Level of Care: Acute Inpatient Care /rosette/ Gretchen Babb MSN, offset printer Nurse Coordinator Signed: 08/27/2024 15:24 Receipt Acknowledged By: 08/27/2024 16:21 /rosette/ YULISSA HENDERSON APRN ADVANCED PRACTICE REGISTERED NURSE, [facility] 08/27/2024 ADDENDUM STATUS: COMPLETED PROVIDER CONTACT REQUEST TO FAX NUMBER LISTED ON ECR: [phone] PLEASE CALL THE [facility] TRANSFER OFFICE ([phone]) AND PROVIDE A CLINICAL UPDATE FOR THE ON THE ATTACHED FAX. IF THE IS STABLE FOR TRANSFER, PLEASE CALL THE [facility] TRANSFER OFFICE FOR AVAILABLITY AT: [phone] IF IS DISHCHARGED FROM THIS EPISODE OF CARE, PLEASE FAX DC SUMMARY TO: [phone] /rosette/ Gretchen Babb MSN, offset printer Nurse Coordinator Signed: 08/27/2024 15:25 08/17/2024 ADDENDUM STATUS: COMPLETED VistA Imaging Scanned Document - Addendum. [facility] 08/13-08/17/2024 DC SUMMARY SCANNED DOCUMENT SIGNATURE NOT REQUIRED Electronically Filed: 08/30/2024 by: BETI Meade JOSÉ MIGUEL Interfacility Maintenance AnalystGRETCHEN [facility]
--- OUTSIDE RECORDS SUMMARY | 2024-08-29 15:38 | XMS_ITS | Encounter Summary ---
Author Name [facility] Organization [facility] Address [address] [place] [address] Care Team Providers Care Agricultural Research Director Name Role Phone YULISSA HENDERSON Primary Care [...] PLAN F Mar 24, 2014 PLAN F [id number] [phone] LUIS MANUEL PERDOMO PATIENT [facility] [place] BLUECARD PREFERRED PROVIDER ORGANIZAT ION (PPO) [facility] SLE Sep 21, 2012 [id number] [phone] LUIS MANUEL PERDOMO PATIENT [employer] ([id number]) PRESCRIPT ION WL3A Sep 21, 2012 [id number] LUIS MANUEL PERDOMO PATIENT MEDICARE (WNR) MEDICARE (M) PART B Sep 21, 2012 PART B [id number] NOEMI PERDOMO PATIENT MEDICARE (WNR) MEDICARE (M) PART A Jan 22, 2011 PART A [id number] NOEMI PERDOMO PATIENT MEDICARE PART D (WNR) MEDICARE (M) PART D Mar 24, 2014 PART D [id number] LUIS MANUEL PERDOMO PATIENT Selected Encounter This section includes the information on record at [place] for the Encounter. Date/Time Encounter Type Encounter Description Reason Pro vider Source Aug 29, 2024 07:38 PM Outpatient Encounter EMERGENCY DEPT IHE Encounter Template Text not used by [place] Plan of Treatment: Future Appointments (+ 6 months) and Future Tests (+/- 45 days) The Plan of Treatment section includes future care activities for the patient from all [place] treatmentfacilities. This section includes future appointments and future orders which are active, pending or scheduled. Future Appointments This section includes appointments that were scheduled to occur 6 months from the date of the Encounter, up to a maximum of 20 appointments. The data comes from all [place] treatment facilities. Appointment Date/Time Appointment Type Appointme nt Facility Name Sep 30, 2024 01:30 PM AMBULATORY - SURGERY [facility] Active, Pending, and Scheduled Orders This section includes a listing of several types of active, pending, and scheduled orders, including clinic medications orders, diagnostic test orders, procedure orders and consult orders; where the start date of the order is 45 days before the date of the Encounter or 45 days after the date of theEncounter. The data comes from all [place] treatment facilities. Test Date/Time Test Type Test Details Facility Name Aug 29, 2024 09:55 PM Laboratory - Chemi stry Order HIGH SENSITIVITY TROPONIN I [id number] STAT WC ONCE [facility] Lab Results: +/- 30 days of the encounter This section includes the Chemistry and Hematology Lab Results on record with [place] for the patient. Radiology Reports and Pathology Reports are provided separately, in subsequent sections. Lab Results This section contains the Chemistry/Hematology Results that were resulted 30 days before or 30 daysafter the date of the Encounter. Date/Time Source Result Type Result - Unit Interpretation Reference Range Specimen Type Comment Aug 29, 2024 10:04 PM [facility] URINALYSIS WITH REFLEX TO CULTURE URINE Speci men Type: URINE Comment: ~For Test: URINALYSIS WITH REFLEX TO CULTURE ~REORDER Ordering Provider: FELISA COLE Report Released Date/Time: Aug 29, 2024 09:36 PM Reporting Lab: [place] [address] Performing Lab: [address] [address] URINE COLOR Yellow Colorless-Yellow APPEARANCE Clear Clear [...] /[LPF] 0-28 Aug 29, 2024 08:32 PM [facility] HIGH SENSITIVITY TROPONIN I PLASMA Specimen [...] Aug 29, 2024 07:55 PM Reporting Lab: [address] [address] Performing Lab: [address] [address] HIGH SENSITIVITY TROPONIN I 7 4-35 Aug 29, 2024 08:32 PM [facility] CBC/PLT BLOOD Specimen Type: BLOOD No comment entered. Ordering Provider: FELISA COLE Report Released Date/Time: Aug 29, 2024 07:55 PM Reporting Lab: [address] [address] Performing Lab: [address] [address] WBC 11.2 10*3/uL H 5.0-10.0 RBC 3.97 10*6/uL L 4.6-6.2 HGB 10.9 g/dL L 14.0-18.0 HCT 33.5 L 42.0-52.0 MCV 84.4 fL 80.0-94.0 MCH 27.5 pg 27.0-31.0 MCHC 32.5 g/dL 32.0-36.0 PLT 230 10*3/uL 150-450 MPV 10.2 fL 9.0-13.1 RDW 14.6 11.0-16.0 NRBC 0.0 0.0-0.0 Aug 29, 2024 08:32 PM [facility] PANEL 5 PLASMA Specimen Type: PLASM [...] 29, 2024 07:55 PM Reporting Lab: [place] [address] [id number] Performing Lab: [facility] [address] [facility] [address] CREATININE 0.85 mg/dL 0.72-1.25 UREA NITROGEN 15 [...] and tobacco- related health factors from the [place] facility where the Encounter took place. Current Smoking Status This section includes the most current smoking, or tobacco-related health factor, from the [place] facility where the Encounter took place. Date/Time Current Smoking Status Comment Gabriel ity Feb 06, 2024 10:00 AM VA-TOBACCO USER SOME DAYS [facility] Tobacco Use History This section includes a history of the smoking, or tobacco-related health factors, that were collected on or before the date of the Encounter. The data comes from the [place] facility where the Encounter took place. Date/Time Smoking Status/Tobacco Use Comment F acility Feb 06, 2024 10:00 AM VA-TOBACCO USE 30 YEARS OR MORE [facility] Feb 06, 2024 10:00 AM VA-TOBACCO USE ADVICE [facility] Feb 06, 2024 10:00 AM VA-TOBACCO USE THREAD REELER NO [facility] Feb 06, 2024 10:00 AM [place]-TOBACCO USE MED NO [facility] Feb 06, 2024 10:00 AM VA-TOBACCO USER SOME DAYS [facility] Advance Directives: All historical and current Section Date Range: From patient's date of to the date document was created. This section includes ALL of a patient's completed or amended [place] Advance and Rescinded Directives. The entries below indicate that a directive exists for the patient, but an actual copy is not included with this document. The data comes from all [place] facilities. Date Advance Directives Provider Source Mar 08, 2024 ADVANCE DIRECTIVE DISCUSSION RUBIN HILL [facility] Radiology Reports: +/- 30 days of [...] the Encounter. The data comes from all [place] treatment facilities. Date/Time Radiology Report Provider Source Aug 29, 2024 08:[address] HEAD W/O CONT: LEANNELUIS MANUEL PERALTA [id number] -[id number] M Exm Date: AUG 29, 2024@20:28 Req Phys: FELISA COLE Loc: ED/4P-12A (Req'g Loc) Img Loc: CT SCAN Service: [place] [address] (Case [id number] COMPLETE) CT HEAD W/O CONT (CT Detailed) CPT:33109 Reason for Study: SEE CLINICAL HISTORY Clinical History: REASON FOR SEND OUT: ATTENDING PHYSICIAN NAME: New transient neurological s/s - suspected TIA HISTORY/REASON FOR EXAM: confusion Report Status: Verified Date Reported: AUG 29, 2024 Date Verified: AUG 29, 2024 Wheel Cutter E-Sig: Report: HISTORY confusion COMPARISON No prior [...] Staff: ABDIRAHMAN CROW, Staff Physician Verified by continuous improvement consultant for ABDIRAHMAN CROW /[facility] Pathology Reports: +/- 30 days of [...] the Encounter. The data comes from all [place] treatment facilities. Date/Time Pathology Report Provider Source Aug 29, 2024 10:18 PM LR MICROBIOLOGY RE PORT: Reporting Lab: [facility] [CLIA# [id number]] [address] [place] [id number] Accession [UID]: [id number] [[id number]] Received: Aug 29, 2024@22:18 Collection sample: URINE, CLEAN CATCH Collection date: Aug 29, 2024 22:18 Site/Specimen: URINE Provider: FELISA COLE Test(s) ordered: CULTURE, URINE................ completed: Aug 31, 2024 09:51 * BACTERIOLOGY FINAL REPORT => Aug 31, 2024 09:51 TECH CODE: [id number] Bacteriology Remark(s): NO GROWTH 08/30/2024 <10,000 CFU/ML. 08/31/2024 =--=--=--=--=--=--=--=--=--=-- =--=--=--=--=--=--=--=--=--=-- =--=--=--=--=--=-- Performing Laboratory: Bacteriology Report Performed By: [facility] [CLIA# [id number]] [address] [place] [id number] MAGDY CALABRESE [facility] Encounter Notes: All associated encounter notes This section contains the clinical notes associated to the Encounter. Date/Time Encounter Note(s) Provider Source Aug 30, 2024 09:01 AM ADDENDUM: LOCAL TITLE: Addendum STANDARD TITLE: ADDENDUM DATE OF NOTE: AUG 30, 2024@09:01:12 ENTRY DATE: AUG 30, 2024@09:01:12 AUTHOR: IVANIA ATWOOD COSIGNER: URGENCY: STATUS: COMPLETED Alerting team of GUERRERO /rosette/ Ivania Atwood BSN, MSN-PRESS CLIPPINGS CUTTER AND PASTER RN-EXHIBITS CURATOR Signed: 08/30/2024 09:01 Receipt Acknowledged By: 08/30/2024 09:02 /es/ Mary Gonzalez, market gardener RN for LYNN F LEODAN 08/30/2024 14:27 /es/ ESTEBAN BATEMAN RN HB RN Hand Sprayer Nurse Tool Polisher 08/30/2024 10:26 /es/ Maribel Murrieta APRN [facility] Nurse Practitioner for YULISSA Oconnor BEATRIZ --- Original Document --- 08/29/24 AFTER VISIT SUMMARY (AVS): The patient was provided with a copy of an after-visit summary at the conclusion of the visit. The after-visit summary includes information pertaining to the patient's encounter, including diagnoses, vital signs, medications, and new orders, as well as a list of any any upcoming appointments and information regarding the patient's ongoing care. The patient's medications were reviewed with the patient by the provider and were provided to the patient as an updated list of medications. The patient was instructed to inform the provider of any medication changes or discrepancies that were noted. Otherwise, the patient was instructed to continue the medications as prescribed. A copy of the after-visit summary provided to the patient is available in [facility]. SCANNED DOCUMENT SIGNATURE NOT REQUIRED Electronically Filed: 08/29/2024 by: HI Soliman,market gardener RN 08/30/2024 ADDENDUM STATUS: COMPLETED attempted to call for f/u after ED visit, left message that I would call back later to check on reema /jeannette Gonzalez, market gardener RN Signed: 08/30/2024 09:04 IVANIA ATWOODSav [facility] Aug 29, 2024 11:08 PM PHARMACY NOTE: LOCAL TITLE: AFTER VISIT SUMMARY (AVS) STANDARD TITLE: PHARMACY NOTE DICT DATE: AUG 29, 2024@19:38 ENTRY DATE: AUG 29, 2024@23:08:41 DICTATED BY: ALEENA LINDQUIST EXP COSIGNER: URGENCY: STATUS: COMPLETED AFTER VISIT SUMMARY (AVS) Has ADDENDA The patient was provided with a copy of an after-visit summary at the conclusion of the visit. The after-visit summary includes information pertaining to the patient's encounter, including diagnoses, vital signs, medications, and new orders, as well as a list of any any upcoming appointments and information regarding the patient's ongoing care. The patient's medications were reviewed with the patient by the provider and were provided to the patient as an updated list of medications. The patient was instructed to inform the provider of any medication changes or discrepancies that were noted. Otherwise, the patient was instructed to continue the medications as prescribed. A copy of the after-visit summary provided to the patient is available in [facility]. SCANNED DOCUMENT SIGNATURE NOT REQUIRED Electronically Filed: 08/29/2024 by: Aleena Lindquist, [place],market gardener RN 08/30/2024 ADDENDUM STATUS: COMPLETED Alerting team of GUERRERO /rosette/ Ivania Atwood BSN, MSN-PRESS CLIPPINGS CUTTER AND PASTER RN-EXHIBITS CURATOR Signed: 08/30/2024 09:01 Receipt Acknowledged By: 08/30/2024 09:02 /jeannette Gonzalez, market gardener RN for LYNN ALCOCER * AWAITING SIGNATURE * ESTEBAN BATEMAN * AWAITING SIGNATURE * YULISSA HENDERSON 08/30/2024 ADDENDUM STATUS: COMPLETED attempted to call for f/u after ED visit, left message that I would call back later to check on them /jeannette Gonzalez market gardener RN Signed: 08/30/2024 09:04 A[facility]ENA [facility]
--- OUTSIDE RECORDS SUMMARY | 2024-08-29 15:38 | XMS_ITS | Encounter Summary ---
Author Name [facility] Organization [facility] Address [address] [place] [id number] Care Team Providers Care Feller Operator Name Role Phone YULISSA HENDERSON Primary [...] PLAN F Mar 24, 2014 PLAN F [id number] LUIS MANUEL PERDOMO PATIENT [facility] [place] BLUECARD PREFERRED PROVIDER ORGANIZAT ION (PPO) [facility] Sep 21, 2012 [id number] LUIS MANUEL PERDOMO PATIENT [employer] ([id number]) PRESCRIPT ION [id number] Sep 21, 2012 [id number] LUIS MANUEL PERDOMO PATIENT MEDICARE (WNR) MEDICARE (M) PART B Sep 21, 2012 PART B [id number] NOEMI PERDOMO PATIENT MEDICARE (WNR) MEDICARE (M) PART A Jan 22, 2011 PART A [id number] NOEMI PERDOMO PATIENT MEDICARE PART D (WNR) MEDICARE (M) PART D Mar 24, 2014 PART D [id number] LUIS MANUEL PERDOMO PATIENT Selected Encounter This section includes the information on record at [place] for the Encounter. Date/Time Encounter Type Encounter Description Reason Provider Source Aug 29, 2024 07:38 PM EMERGENCY DEPT VISIT MOD MDM EMERGENCY DEPT ICD-10-CM G35 Multiple sclerosis DOUGLASNEFTALIFELISA Stephen Encounter Template Text not used by [place] Assessments - Encounter Diagnoses This section includes the primary and secondary diagnoses documented for the Encounter. Date/Time Primary/Secondary Diagnosis Diagnosis Name Provider Source Aug 29, 2024 11:31 PM PR[facility] Aug 29, 2024 11:31 PM SECONDARY Other fatigue [facility] Plan of Treatment: Future Appointments (+ 6 months) and Future Tests (+/- 45 days) The Plan of Treatment section includes future care activities for the patient from all [place] treatmentfacilities. This section includes future appointments and future orders which are active, pending or scheduled. Future Appointments This section includes appointments that were scheduled to occur 6 months from the date of the Encounter, up to a maximum of 20 appointments. The data comes from all [place] treatment facilities. Appointment Date/Time Appointment Type Appointme nt Facility Name Sep 30, 2024 01:30 PM AMBULATORY - SURGERY AMANDA MARIA EUGENIA [facility] Active, Pending, and Scheduled Orders This section includes a listing of several types of active, pending, and scheduled orders, including clinic medications orders, diagnostic test orders, procedure orders and consult orders; where the start date of the order is 45 days before the date of the Encounter or 45 days after the date of theEncounter. The data comes from all [place] treatment facilities. Test Date/Time Test Type Test Details Facility Name Aug 29, 2024 09:55 PM Laboratory - Chemi stry Order HIGH SENSITIVITY TROPONIN I [id number] STAT WC ONCE [facility] Lab Results: +/- 30 days of the encounter This section includes the Chemistry and Hematology Lab Results on record with [place] for the patient. Radiology Reports and Pathology Reports are provided separately, in subsequent sections. Lab Results This section contains the Chemistry/Hematology Results that were resulted 30 days before or 30 daysafter the date of the Encounter. Date/Time Source Result Type Result - Unit Interpretation Reference Range Specimen Type Comment Aug 29, 2024 10:04 PM [facility] URINALYSIS WITH REFLEX TO CULTURE URINE Speci men Type: URINE Comment: ~For Test: URINALYSIS WITH REFLEX TO CULTURE ~REORDER Ordering Provider: FELISA COLE Report Released Date/Time: Aug 29, 2024 09:36 PM Reporting Lab: [address] [phone] Performing Lab: [place] [id number] URINE COLOR Yellow Colorless-Yellow APPEARANCE Clear Clear [...] /[LPF] 0-28 Aug 29, 2024 08:32 PM [facility] HIGH SENSITIVITY TROPONIN I PLASMA Specimen [...] I information resource can be reached in [facility] in the Tools menu, under [...] Aug 29, 2024 07:55 PM Reporting Lab: [address] [phone] Performing Lab: [address] [phone] HIGH SENSITIVITY TROPONIN I 7 4-35 Aug 29, 2024 08:32 PM [facility] CBC/PLT BLOOD Specimen Type: BLOOD No comment entered. Ordering Provider: FELISA COLE Report Released Date/Time: Aug 29, 2024 07:55 PM Reporting Lab: [address] [phone] Performing Lab: [address] [phone] WBC 11.2 10*3/uL H 5.0-10.0 RBC 3.97 10*6/uL L 4.6-6.2 HGB 10.9 g/dL L 14.0-18.0 HCT 33.5 L 42.0-52.0 MCV 84.4 fL 80.0-94.0 MCH 27.5 pg 27.0-31.0 MCHC 32.5 g/dL 32.0-36.0 PLT 230 10*3/uL 150-450 MPV 10.2 fL 9.0-13.1 RDW 14.6 11.0-16.0 NRBC 0.0 0.0-0.0 Aug 29, 2024 08:32 PM [facility] PANEL 5 PLASMA Specimen Type: PLASM [...] I information resource can be reached in [facility] in the Tools menu, under [...] Aug 29, 2024 07:55 PM Reporting Lab: [address] [phone] Performing Lab: [address] [phone] CREATININE 0.85 mg/dL 0.72-1.25 UREA NITROGEN 15 [...] 2024 11:00 PM 81 159/73 21 93 [facility] Aug 29, 2024 07:54 PM 99.4 85 174/79 16 92 5 [facility] Advance Directives: All historical and current Section Date Range: From patient's date of to the date document was created. This section includes ALL of a patient's completed or amended [place] Advance and Rescinded Directives. The entries below indicate that a directive exists for the patient, but an actual copy is not included with this document. The data comes from all [place] facilities. Date Advance Directives Provider Source Mar 08, 2024 ADVANCE DIRECTIVE DISCUSSION RUBIN HILL [facility] Radiology Reports: +/- 30 days [...] the Encounter. The data comes from all [place] treatment facilities. Date/Time Radiology Report Provider Source Aug 29, 2024 08:[address] HEAD W/O CONT: LUIS MANUEL PERDOMO [id number] -[id number] M Exm Date: AUG 29, 2024@20:28 Req Phys: FELISA COLE Loc: ED/4P-12A (Req'g Loc) Img Loc: CT SCAN Service: [place] [address] (Case [id number] COMPLETE) CT HEAD W/O CONT (CT Detailed) CPT:85888 Reason for Study: SEE CLINICAL HISTORY Clinical History: REASON FOR SEND OUT: ATTENDING PHYSICIAN NAME: New transient neurological s/s - suspected TIA HISTORY/REASON FOR EXAM: confusion Report Status: Verified Date Reported: AUG 29, 2024 Date Verified: AUG 29, 2024 Landscape Architect And Planner E-Sig: Report: HISTORY confusion COMPARISON No prior [...] Staff: ABDIRAHMAN DAVIDSON Staff Physician Verified by principal bioinformatics specialist for ABDIRAHMAN DAVIDSON [facility] Pathology Reports: +/- 30 days of [...] the Encounter. The data comes from all [place] treatment facilities. Date/Time Pathology Report Provider Source Aug 29, 2024 10:18 PM LR MICROBIOLOGY RE PORT: Reporting Lab: [facility] [IA# [id number]] [address] [place] [id number] Accession [UID]: [id number] [[id number]] Received: Aug 29, 2024@22:18 Collection sample: URINE, CLEAN CATCH Collection date: Aug 29, 2024 22:18 Site/Specimen: URINE Provider: FELISA COLE Test(s) ordered: CULTURE, URINE................ completed: Aug 31, 2024 09:51 * BACTERIOLOGY FINAL REPORT => Aug 31, 2024 09:51 TECH CODE: [id number] Bacteriology Remark(s): NO GROWTH 08/30/2024 <10,000 CFU/ML. 08/31/2024 =--=--=--=--=--=--=--=--=--=-- =--=--=--=--=--=--=--=--=--=-- =--=--=--=--=--=-- Performing Laboratory: Bacteriology Report Performed By: [facility] [IA# [id number]] [address] [place] [phone] MAGDY CALABRESE [facility] Encounter Notes: All associated encounter notes This section contains the clinical notes associated to the Encounter. Date/Time Encounter Note(s) Provider Source Aug 29, 2024 08:44 PM RADIOLOGY EDUCATIO N NOTE: LOCAL TITLE: Radiology Patient Education STANDARD TITLE: RADIOLOGY EDUCATION NOTE DATE OF NOTE: AUG 29, 2024@20:44 ENTRY DATE: AUG 29, 2024@20:44:23 AUTHOR: MERCEDES HERNANDEZ COSIGNER: URGENCY: STATUS: COMPLETED Time out to [...] w/o contrast completed /rosette/ MERCEDES HERNANDEZ CT TRIMMER CLIMBER Signed: 08/29/2024 20:44 Receipt Acknowledged By: 08/30/2024 07:35 /rosette/ Rosemarie Aguilar Advanced Commercial Driver'S License Driver MERCEDES HERNANDEZ-VUD [facility] Aug 29, 2024 07:58 PM EMERGENCY DEPT NOT E: LOCATION: ED/[facility] VISIT DATE: AUG 29, 2024@19:38 LOCAL TITLE: EMERGENCY DEPT NURSING ASSESSMENT CHILD ID NOTE STANDARD TITLE: EMERGENCY DEPT NOTE DATE OF NOTE: AUG 29, 2024@19:58 ENTRY DATE: AUG 29, 2024@19:58:54 AUTHOR: ALEENA ALVARADO EXP COSIGNER: URGENCY: STATUS: COMPLETED ASSESSMENT: PAIN: [...] documentation Medicine/Supplies Qty Last Filled 1) UNDERPAD,BED [id number] TRANQUILITY-2710: USE 280 AUGUST 02, 2024 UNDERPAD [...] Normal RESPIRATORY: Non-labored CV/CIRCULATORY: Warm, Dry COLOR: [place] CAP REFILL: PEDAL PULSES: Left Radial - Palpable Right Radial - Palpable Left Pedal - Right Pedal - INTEGUMENTARY: Medical Devices: Physical evidence of abuse or neglect? No Patient or Other verbally reports current abuse, neglect, or exploitation? No If yes: Provider notified? Yes If yes: Social service consult? Yes /rosette/ HI Soliman,stoper RN Signed: 08/29/2024 20:02 --- Interdisciplinary Note --- << Interdisciplinary Note >> LOCATION: ED/[facility] VISIT DATE: AUG 29, 2024@19:38 LOCAL TITLE: EMERGENCY DEPT TRIAGE PARENT ID NOTE STANDARD TITLE: EMERGENCY DEPT TRIAGE NOTE DATE OF NOTE: AUG 29, 2024@19:55 ENTRY DATE: AUG 29, 2024@19:55:34 AUTHOR: ALEENA ALVARADO COSIGNER: URGENCY: STATUS: COMPLETED Emergency Department/Urgent Care Center Triage Patient age:79 Sex in chart: MALE Mode of Arrival: Private vehicle Mode of Mobility: * Wheelchair Chief Complaint: patient with chronic uti. patient with confusion, fevers, dysuria. Recent admission and treatment for uti and pneumonia net mobile developer Note (Subjective/Objective): nad Level of Consciousness (AVPU): [...] activities Patient's acceptable pain goal: Suicide Screen: [place] Suicide Severity Rating Scale (C-SSRS) screener 1. [...] Pain of right knee joint /es/ HI Soliman,stoper RN Signed: 08/29/2024 19:58 << Interdisciplinary Note [...] documentation Medicine/Supplies Qty Last Filled 1) UNDERPAD,BED [id number] TRANQUILITY-2710: USE 280 AUGUST 02, 2024 UNDERPAD [...] Normal RESPIRATORY: Non-labored CV/CIRCULATORY: Warm, Dry COLOR: [place] CAP REFILL: PEDAL PULSES: Left Radial - Palpable Right Radial - Palpable Left Pedal - Right Pedal - INTEGUMENTARY: Medical Devices: Physical evidence of abuse or neglect? No Patient or Other verbally reports current abuse, neglect, or exploitation? No If yes: Provider notified? Yes If yes: Social service consult? Yes /rosette/ HI Soliman,stoper RN Signed: 08/29/2024 20:02 ALEENA ALVARADO-VUD [facility] Aug 29, 2024 07:57 PM EMERGENCY DEPT NOT E: LOCAL TITLE: ED PHYSICIAN/BALANCING MACHINE SET UP WORKER/PA NOTE STANDARD TITLE: EMERGENCY DEPT NOTE DATE OF NOTE: AUG 29, 2024@19:57 ENTRY DATE: AUG 29, 2024@19:57:18 AUTHOR: FELISA COLE COSIGNER: URGENCY: STATUS: COMPLETED TIME SEEN: 1955 CHIEF COMPLAINT: fatigue HISTORIAN: [X] Patient [ ] Spouse [ ] Son [ ] Daughter [ ] Chcf [ ] EMS [ ] Other: HPI: [...] WITH MEALS Indication: FOR NASAL ALLERGIES UNDERPAD,BED [id number] TRANQUILITY-2710 USE UNDERPAD ACTIVE DIRECTED THREE TIMES [...] PC [ ] Specialist: [ ] Other: /rosette/ FELISA COLE MD staff physician Signed: 08/29/2024 23:02 FELISA COLE-CDD [facility] Aug 29, 2024 07:55 PM EMERGENCY DEPT TRI AGE NOTE: << Interdisciplinary Note >> LOCATION: ED/[facility] VISIT DATE: AUG 29, 2024@19:38 LOCAL TITLE: EMERGENCY DEPT TRIAGE PARENT ID NOTE STANDARD TITLE: EMERGENCY DEPT TRIAGE NOTE DATE OF NOTE: AUG 29, 2024@19:55 ENTRY DATE: AUG 29, 2024@19:55:34 AUTHOR: ALEENA ALVARADO EXP COSIGNER: URGENCY: STATUS: COMPLETED EMERGENCY DEPT TRIAGE PARENT ID NOTE Has ADDENDA Emergency Department/Urgent Care Center Triage Patient age:79 Sex in chart: MALE Mode of Arrival: Private vehicle Mode of Mobility: * Wheelchair Chief Complaint: patient with chronic uti. patient with confusion, fevers, dysuria. Recent admission and treatment for uti and pneumonia net mobile developer Note (Subjective/Objective): nad Level of Consciousness (AVPU): [...] activities Patient's acceptable pain goal: Suicide Screen: [place] Suicide Severity Rating Scale (C-SSRS) screener 1. [...] Pain of right knee joint /rosette/ HI Soliman,stoper RN Signed: 08/29/2024 19:58 08/29/2024 ADDENDUM STATUS: [...] and placed in shred box. /rosette/ HI Soliman,stoper RN Signed: 08/29/2024 23:36 << Interdisciplinary Note [...] documentation Medicine/Supplies Qty Last Filled 1) UNDERPAD,BED [id number] TRANQUILITY-2710: USE 280 AUGUST 02, 2024 UNDERPAD [...] Normal RESPIRATORY: Non-labored CV/CIRCULATORY: Warm, Dry COLOR: [place] CAP REFILL: PEDAL PULSES: Left Radial - Palpable Right Radial - Palpable Left Pedal - Right Pedal - INTEGUMENTARY: Medical Devices: Physical evidence of abuse or neglect? No Patient or Other verbally reports current abuse, neglect, or exploitation? No If yes: Provider notified? Yes If yes: Social service consult? Yes /rosette/ Aleena Alvarado MSN,stoper RN Signed: 08/29/2024 20:02 ALEENA ALVARADO-MALKA [facility]
--- OUTSIDE RECORDS SUMMARY | 2024-08-30 07:34 | XMS_ITS | Encounter Summary ---
Author Name [facility] Organization [facility] [place] Address [address] [place] [address] Care Team Providers Care Supervisor [employer] Name Role Phone YULISSA HENDERSON Primary Care [...] PLAN F Mar 24, 2014 PLAN F [id number] LUIS MANUEL PERDOMO PATIENT BS [place] [employer] PREFERRED PROVIDER ORGANIZAT ION (PPO) [facility] SLE Sep 21, 2012 [id number] LUIS MANUEL PERDOMO PATIENT [employer] ([id number]) PRESCRIPT ION [id number] Sep 21, 2012 [id number] LUIS MANUEL PERDOMO PATIENT MEDICARE (WNR) MEDICARE (M) PART B Sep 21, 2012 PART B [id number] NOEMI PERDOMO PATIENT MEDICARE (WNR) MEDICARE (M) PART A Jan 22, 2011 PART A [id number] NOEMI PERDOMO PATIENT MEDICARE PART D (WNR) MEDICARE (M) PART D Mar 24, 2014 PART D [id number] LUIS MANUEL PERDOMO PATIENT Selected Encounter This section includes the information on record at [place] for the Encounter. Date/Time Encounter Type Encounter Description Reason Provider Source Aug 30, 2024 11:34 AM ELECTROCARDIOGRAM COMPLETE EKG ICD-10-CM I10 Essential (primary) hypertension ELGENDY,ALEX M Y IHE Encounter Template Text not used by [place] Assessments - Encounter Diagnoses This section includes the primary and secondary diagnoses documented for the Encounter. Date/Time Primary/Secondary Diagnosis Diagnosis Name Provider Source Aug 31, 2024 03:12 PM PRIMARY [facility]ential (primary) [facility] Plan of Treatment: Future Appointments (+ 6 months) and Future Tests (+/- 45 days) The Plan of Treatment section includes future care activities for the patient from all [place] treatmentfacilities. This section includes future appointments and future orders which are active, pending or scheduled. Future Appointments This section includes appointments that were scheduled to occur 6 months from the date of the Encounter, up to a maximum of 20 appointments. The data comes from all [place] treatment facilities. Appointment Date/Time Appointment Type Appointme nt Facility Name Sep 30, 2024 01:30 PM [facility] Active, Pending, and Scheduled Orders This section includes a listing of several types of active, pending, and scheduled orders, including clinic medications orders, diagnostic test orders, procedure orders and consult orders; where the start date of the order is 45 days before the date of the Encounter or 45 days after the date of theEncounter. The data comes from all [place] treatment facilities. Test Date/Time Test Type Test Details Facility Name Aug 29, 2024 09:55 PM Laboratory - Chemi stry Order HIGH SENSITIVITY TROPONIN I [id number] STAT WC ONCE [facility] Lab Results: +/- 30 days of the encounter This section includes the Chemistry and Hematology Lab Results on record with [place] for the patient. Radiology Reports and Pathology Reports are provided separately, in subsequent sections. Lab Results This section contains the Chemistry/Hematology Results that were resulted 30 days before or 30 daysafter the date of the Encounter. Date/Time Source Result Type Result - Unit Interpretation Reference Range Specimen Type Comment Aug 29, 2024 10:04 PM [facility] URINALYSIS WITH REFLEX TO CULTURE URINE Speci men Type: URINE Comment: ~For Test: URINALYSIS WITH REFLEX TO CULTURE ~REORDER Ordering Provider: FELISA COLE Report Released Date/Time: Aug 29, 2024 09:36 PM Reporting Lab: [address] [id number] Performing Lab: [address] [address] URINE COLOR Yellow Colorless-Yellow APPEARANCE Clear Clear [...] /[LPF] 0-28 Aug 29, 2024 08:32 PM [facility] HIGH SENSITIVITY TROPONIN I PLASMA Specimen [...] I information resource can be reached in [facility] in the [...] Aug 29, 2024 07:55 PM Reporting Lab: [address] [address] Performing Lab: [address] [address] HIGH SENSITIVITY TROPONIN I 7 4-35 Aug 29, 2024 08:32 PM [facility] CBC/PLT BLOOD Specimen Type: BLOOD No comment entered. Ordering Provider: FELISA COLE Report Released Date/Time: Aug 29, 2024 07:55 PM Reporting Lab: [address] [address] Performing Lab: [address] [address] WBC 11.2 10*3/uL H 5.0-10.0 RBC 3.97 10*6/uL L 4.6-6.2 HGB 10.9 g/dL L 14.0-18.0 HCT 33.5 L 42.0-52.0 MCV 84.4 fL 80.0-94.0 MCH 27.5 pg 27.0-31.0 MCHC 32.5 g/dL 32.0-36.0 PLT 230 10*3/uL 150-450 MPV 10.2 fL 9.0-13.1 RDW 14.6 11.0-16.0 NRBC 0.0 0.0-0.0 Aug 29, 2024 08:32 PM [facility] PANEL 5 PLASMA Specimen Type: [...] I information resource can be reached in [facility] in the [...] Aug 29, 2024 07:55 PM Reporting Lab: [facility] [address] [place] [phone] Performing Lab: [address] [address] CREATININE 0.85 mg/dL 0.72-1.25 UREA NITROGEN 15 [...] ALL of a patient's completed or amended [place] Advance and Rescinded Directives. The entries below indicate that a directive exists for the patient, but an actual copy is not included with this document. The data comes from all [place] facilities. Date Advance Directives Provider Source Mar 08, 2024 ADVANCE DIRECTIVE DISCUSSION [facility] Radiology Reports: +/- 30 days of [...] the Encounter. The data comes from all [place] treatment facilities. Date/Time Radiology Report Provider Source Aug 29, 2024 08:[address] HEAD W/O CONT: LUIS MANUEL PERDOMO [id number] -[id number] M Exm Date: AUG 29, 2024@20:28 Req Phys: FELISA COLE Faith Loc: ED/4P-12A (Req'g Loc) Img Loc: CT SCAN Service: [place] [address] (Case [id number] COMPLETE) CT HEAD W/O CONT (CT Detailed) CPT:18535 Reason for Study: SEE CLINICAL HISTORY Clinical History: REASON FOR SEND OUT: ATTENDING PHYSICIAN NAME: New transient neurological s/s - suspected TIA HISTORY/REASON FOR EXAM: confusion Report Status: Verified Date Reported: AUG 29, 2024 Date Verified: AUG 29, 2024 Dried Yeast Supervisor E-Sig: Report: HISTORY confusion COMPARISON No prior [...] Staff: CHRISTOPHER DAVIDSON, Staff Physician Verified by mill order scheduler for CHRISTOPHER DAVIDSON [facility] Pathology Reports: +/- 30 days [...] the Encounter. The data comes from all [place] treatment facilities. Date/Time Pathology Report Provider Source Aug 29, 2024 10:18 PM LR MICROBIOLOGY RE PORT: Reporting Lab: [facility] [CLIA# [id number]] [address] [place], [place] [id number] Accession [UID]: [id number] [[id number]] Received: Aug 29, 2024@22:18 Collection sample: URINE, CLEAN CATCH Collection date: Aug 29, 2024 22:18 Site/Specimen: URINE Provider: FELISA COLE Test(s) ordered: CULTURE, URINE................ completed: Aug 31, 2024 09:51 * BACTERIOLOGY FINAL REPORT => Aug 31, 2024 09:51 TECH CODE: [id number] Bacteriology Remark(s): NO GROWTH 08/30/2024 <10,000 CFU/ML. 08/31/2024 =--=--=--=--=--=--=--=--=--=-- =--=--=--=--=--=--=--=--=--=-- =--=--=--=--=--=-- Performing Laboratory: Bacteriology Report Performed By: [facility] [CLIA# [id number]] [address] [place] [id number] MAGDY CALABRESE [facility] Encounter Notes: All associated encounter notes This section contains the clinical notes associated to the Encounter. Date/Time Encounter Note(s) Provider Source Aug 30, 2024 12:32 PM CARDIOLOGY CONSULT : LOCAL TITLE: EKG-INTERPRETATION ONLY CONSULT STANDARD TITLE: CARDIOLOGY CONSULT DATE OF NOTE: AUG 30, 2024@12:32:08 ENTRY DATE: AUG 30, 2024@12:32:08 AUTHOR: CLINICAL,DEVICE PRO EXP COSIGNER: URGENCY: STATUS: COMPLETED DOCUMENT IN [employer] [facility] SEE FULL REPORT IN [facility] SIGNATURE NOT REQUIRED SEE SIGNATURE IN [facility] ([employer] EKG) AUTO-INSTRUMENT DIAGNOSIS Procedure: [id number] Lead ECG Release Status: Released Off-Line Verified Date Verified: Aug 30, 2024@12:32:03 83082.2 Ventricular Rate: 90 BPM 56715.3 Atrial Rate: 90 BPM 41104.4 P-R Interval: 158 ms 29283.5 QRS Duration: 80 ms 28037.6 Q-T Interval: 366 ms 08148 QTC Calculation(Bazett)447 ms 18345.12 Calculated P [place]: 67 degrees 38876.13 Calculated R [place]: 37 degrees 07100.14 Calculated T [place]: 11 degrees 208.1 Coded Diagnosis: NORMAL SINUS RHYTHM 208.1 Coded Diagnosis: NORMAL ECG Confirmed by Shane Macario ([id number]) on 08/30/2024 12:32:02 PM Administrative Closure: 08/30/2024 by: DEVICE PROXY SERVICE CLINICAL CLINICAL,DEVICE PROXY SERVICE CLINICAL,DEVICE PROXY SERVICE [facility]
--- OUTSIDE RECORDS SUMMARY | 2024-08-30 09:12 | XMS_ITS | Encounter Summary ---
Author Name [facility] [place] [facility] [place] Address [address] [place] [address] Care Team Providers Care Deputy County Clerk Name Role Phone YULISSA HENDERSON Primary [...] PLAN F Mar 24, 2014 PLAN F [id number] [phone] LUIS MANUEL PERDOMO PATIENT [facility] [place] [facility] PREFERRED PROVIDER ORGANIZAT ION (PPO) [facility] Sep 21, 2012 [id number] [phone] LUIS MANUEL PERDOMO PATIENT [employer] ([id number]) PRESCRIPT ION [id number] Sep 21, 2012 [id number] LUIS MANUEL PERDOMO PATIENT MEDICARE (WNR) MEDICARE (M) PART B Sep 21, 2012 PART B [id number] NOEMI PERDOMO PATIENT MEDICARE (WNR) MEDICARE (M) PART A Jan 22, 2011 PART A [id number] [phone] NOEMI PERDOMO PATIENT MEDICARE PART D (WNR) MEDICARE (M) PART D Mar 24, 2014 PART D [id number] LUIS MANUEL PERDOMO PATIENT Selected Encounter This section includes the information on record at [place] for the Encounter. Date/Time Encounter Type Encounter Description Reason Provider Source Aug 30, 2024 01:12 PM PH1 ASSMT&MGMT NQHP 5-10 TELEPHONE HBPC ICD-10-CM G35 Multiple sclerosis VIPUL SAHA IHStephen Encounter Template Text not used by [place] Assessments - Encounter Diagnoses This section includes the primary and secondary diagnoses documented for the Encounter. Date/Time Primary/Secondary Diagnosis Diagnosis Name Provider Source Aug 30, 2024 01:12 PM PRIMARY Multiple sclerosis [facility] Plan of Treatment: Future Appointments (+ 6 months) and Future Tests (+/- 45 days) The Plan of Treatment section includes future care activities for the patient from all [place] treatmentfacilities. This section includes future appointments and future orders which are active, pending or scheduled. Future Appointments This section includes appointments that were scheduled to occur 6 months from the date of the Encounter, up to a maximum of 20 appointments. The data comes from all [place] treatment facilities. Appointment Date/Time Appointment Type Appointme nt Facility Name Sep 30, 2024 01:30 PM [facility] Active, Pending, and Scheduled Orders This section includes a listing of several types of active, pending, and scheduled orders, including clinic medications orders, diagnostic test orders, procedure orders and consult orders; where the start date of the order is 45 days before the date of the Encounter or 45 days after the date of theEncounter. The data comes from all [place] treatment facilities. Test Date/Time Test Type Test Details Facility Name Aug 29, 2024 09:55 PM Laboratory - Chemi stry Order HIGH SENSITIVITY TROPONIN I [id number] STAT WC ONCE [facility] Lab Results: +/- 30 days of the encounter This section includes the Chemistry and Hematology Lab Results on record with [place] for the patient. Radiology Reports and Pathology Reports are provided separately, in subsequent sections. Lab Results This section contains the Chemistry/Hematology Results that were resulted 30 days before or 30 daysafter the date of the Encounter. Date/Time Source Result Type Result - Unit Interpretation Reference Range Specimen Type Comment Aug 29, 2024 10:04 PM [facility] URINALYSIS WITH REFLEX TO CULTURE URINE Speci men Type: URINE Comment: ~For Test: URINALYSIS WITH REFLEX TO CULTURE ~REORDER Ordering Provider: FELISA COLE Report Released Date/Time: Aug 29, 2024 09:36 PM Reporting Lab: [address] [address] Performing Lab: [address] [address] URINE COLOR Yellow Colorless-Yellow APPEARANCE Clear Clear [...] /[LPF] 0-28 Aug 29, 2024 08:32 PM [facility] HIGH SENSITIVITY TROPONIN I PLASMA Specimen [...] I information resource can be reached in [facility] in the Tools menu, under the [...] Aug 29, 2024 07:55 PM Reporting Lab: [address] [address] Performing Lab: [address] [address] HIGH SENSITIVITY TROPONIN I 7 4-35 Aug 29, 2024 08:32 PM [facility] CBC/PLT BLOOD Specimen Type: BLOOD No comment entered. Ordering Provider: FELISA COLE Report Released Date/Time: Aug 29, 2024 07:55 PM Reporting Lab: [address] [address] Performing Lab: [address] [address] WBC 11.2 10*3/uL H 5.0-10.0 RBC 3.97 10*6/uL L 4.6-6.2 HGB 10.9 g/dL L 14.0-18.0 HCT 33.5 L 42.0-52.0 MCV 84.4 fL 80.0-94.0 MCH 27.5 pg 27.0-31.0 MCHC 32.5 g/dL 32.0-36.0 PLT 230 10*3/uL 150-450 MPV 10.2 fL 9.0-13.1 RDW 14.6 11.0-16.0 NRBC 0.0 0.0-0.0 Aug 29, 2024 08:32 PM [facility] PANEL 5 PLASMA Specimen Type: PLASM [...] I information resource can be reached in [facility] in the Tools menu, under the [...] Aug 29, 2024 07:55 PM Reporting Lab: [address] [address] Performing Lab: [address] [address] CREATININE 0.85 mg/dL 0.72-1.25 UREA NITROGEN 15 [...] this document. The data comes from all [facility]. Date Advance Directives Provider Source Mar 08, 2024 ADVANCE DIRECTIVE DISCUSSION RUBIN HILL [facility] Radiology Reports: +/- 30 days of [...] CT HEAD W/O CONT: LUIS MANUEL PERDOMO [id number] -1945 M Exm Date: AUG 29, 2024@20:28 Req Phys: FELISA COLE Loc: ED/4P-12A (Req'g Loc) Img Loc: CT SCAN Service: Unknown [place] [id number] (Case [id number] COMPLETE) CT HEAD W/O CONT (CT Detailed) CPT:18265 Reason for Study: SEE CLINICAL HISTORY Clinical History: REASON FOR SEND OUT: ATTENDING PHYSICIAN NAME: New transient neurological s/s - suspected TIA HISTORY/REASON FOR EXAM: confusion Report Status: Verified Date Reported: AUG 29, 2024 Date Verified: AUG 29, 2024 Extruder Operator Horizontal E-Sig: Report: HISTORY confusion COMPARISON No prior [...] NO ALERT REQUIRED Primary Interpreting Staff: ABDIRAHMAN DAVIDSON, Staff Physician Verified by audio/visual operator for ABDIRAHMAN DAVIDSON /ABDIRAHMAN ROJAS-D [facility] Pathology Reports: +/- 30 days of [...] Reporting Lab: [facility] [CLIA# [id number]] [address] [place] [phone] Accession [UID]: [id number] [[id number]] Received: Aug 29, 2024@22:18 Collection sample: URINE, CLEAN CATCH Collection date: Aug 29, 2024 22:18 Site/Specimen: URINE Provider: FELISA COLE Test(s) ordered: CULTURE, URINE................ completed: Aug 31, 2024 09:51 * BACTERIOLOGY FINAL REPORT => Aug 31, 2024 09:51 TECH CODE: [id number] Bacteriology Remark(s): NO GROWTH 08/30/2024 <10,000 CFU/ML. 08/31/2024 =--=--=--=--=--=--=--=--=--=-- =--=--=--=--=--=--=--=--=--=-- =--=--=--=--=--=-- Performing Laboratory: Bacteriology Report Performed By: [facility] [CLIA# [id number]] [address] [place] [phone] MAGDY CALABRESE [facility] Encounter Notes: All associated encounter notes This section contains the clinical notes associated to the Encounter. Date/Time Encounter Note(s) Provider Source Aug 30, 2024 01:12 PM PRIMARY CARE NOTE: LOCAL TITLE: POST DISCHARGE CONTACT STANDARD TITLE: PRIMARY CARE NOTE DATE OF NOTE: AUG 30, 2024@13:12 ENTRY DATE: AUG 30, 2024@13:12:53 AUTHOR: BUNNY SAHA EXP COSIGNER: URGENCY: STATUS: COMPLETED Location of Discharge: Emergency Department/Urgent Care Contact attempt: 2nd Unable to make contact HIPAA compliant message left with spouse and call back number [phone] provided. ATTEMPTED X 2 TO CONTACT , LEFT MESSAGE FOR HER TO CALL ME BACK REGARDING PT STATUS, ED NOTES SEEM TO INDICATE PT IS IN A REHAB FACILITY, NEED TO TALK WITH FOR CLARIFICATION, WILL LET RN CM KNOW ATTEMPTS HAVE BEEN MADE TO CONTACT PT/ WHEN SHE RETURNS IF I HAVE NOT HEARD FROM HER TODAY /rosette/ Bunny Saha, administrative specialist RN Signed: 08/30/2024 13:16 Receipt Acknowledged By: 08/30/2024 14:26 /es/ ESTEBAN BATEMAN, GUERITA [facility] RN [employer] Tacker Nurse Geotechnical Laboratory Technician BUNNY SAHA-VUD [facility]
--- OUTSIDE RECORDS SUMMARY | 2024-08-31 05:44 | XMS_ITS ---
Author Name [facility] [place] Organization [facility] [place] Address [address] [place] [address] Care Team Providers Care Check Embosser Name Role Phone YULISSA HENDERSON Primary Care [...] PLAN F Mar 24, 2014 PLAN F [phone] LUIS MANUEL PERDOMO PATIENT [facility] [place] [facility]UECARD PREFERRED PROVIDER ORGANIZAT ION (PPO) [facility] Sep 21, 2012 [id number] LUIS MANUEL PERDOMO PATIENT [employer] ([id number]) PRESCRIPT ION WL3A Sep 21, 2012 [id number] LUIS MANUEL PERDOMO PATIENT MEDICARE (WNR) MEDICARE (M) PART B Sep 21, 2012 PART B [id number] NOEMI PERDOMO PATIENT MEDICARE (WNR) MEDICARE (M) PART A Jan 22, 2011 PART A [id number] [phone] NOEMI PERDOMO PATIENT MEDICARE PART D (WNR) MEDICARE (M) PART D Mar 24, 2014 PART D [id number] LUIS MANUEL PERDOMO PATIENT Selected Encounter This section includes the information on record at [place] for the Encounter. Date/Time Encounter Type Encounter Description Reason Pro vider Source Aug 31, 2024 09:44 AM Outpatient Encounter [facility] Nursing (RN / LP) IHE Encounter Template Text not used by [place] Plan of Treatment: Future Appointments (+ 6 [...] 2024 01:30 PM AMBULATORY - SURGERY LEX[facility] Active, Pending, and Scheduled Orders This section [...] Chemi stry Order HIGH SENSITIVITY TROPONIN I [id number] STAT WC ONCE [facility] Lab Results: +/- 30 days of [...] Type Comment Aug 29, 2024 10:04 PM [facility] URINALYSIS WITH REFLEX TO CULTURE URINE Speci men Type: URINE Comment: ~For Test: URINALYSIS WITH REFLEX TO CULTURE ~REORDER Ordering Provider: FELISA COLE Report Released Date/Time: Aug 29, 2024 09:36 PM Reporting Lab: [facility] [address] [facility] [address] Performing Lab: [facility] [address] [facility] [address] URINE COLOR Yellow Colorless-Yellow APPEARANCE Clear Clear [...] /[LPF] 0-28 Aug 29, 2024 08:32 PM [facility] HIGH SENSITIVITY TROPONIN I PLASMA Specimen [...] I information resource can be reached in [facility] in the Tools menu, under the [...] Aug 29, 2024 07:55 PM Reporting Lab: [address] [address] Performing Lab: [address] [address] HIGH SENSITIVITY TROPONIN I 7 4-35 Aug 29, 2024 08:32 PM [facility] CBC/PLT BLOOD Specimen Type: BLOOD No comment entered. Ordering Provider: FELISA COLE Report Released Date/Time: Aug 29, 2024 07:55 PM Reporting Lab: [facility] [address] [facility] [address] Performing Lab: [facility] [address] [place] [phone] WBC 11.2 10*3/uL H 5.0-10.0 RBC 3.97 10*6/uL L 4.6-6.2 HGB 10.9 g/dL L 14.0-18.0 HCT 33.5 L 42.0-52.0 MCV 84.4 fL 80.0-94.0 MCH 27.5 pg 27.0-31.0 MCHC 32.5 g/dL 32.0-36.0 PLT 230 10*3/uL 150-450 MPV 10.2 fL 9.0-13.1 RDW 14.6 11.0-16.0 NRBC 0.0 0.0-0.0 Aug 29, 2024 08:32 PM [facility] PANEL 5 PLASMA Specimen Type: PLASM [...] Aug 29, 2024 07:55 PM Reporting Lab: [facility] [address] [facility] [address] Performing Lab: [facility] [address] [facility] [address] CREATININE 0.85 mg/dL 0.72-1.25 UREA NITROGEN 15 [...] 08, 2024 ADVANCE DIRECTIVE DISCUSSION R[facility]IN [facility] Radiology Reports: +/- 30 days of [...] CT HEAD W/O CONT: LEANNELUIS MANUEL PERALTA [id number] -[id number] M Exm Date: AUG 29, 2024@20:28 Req Phys: FELISA COLE Loc: ED/4P-12A (Req'g Loc) Img Loc: CT SCAN Service: [place] [address] (Case [id number] COMPLETE) CT HEAD W/O CONT (CT Detailed) CPT:41825 Reason for Study: SEE CLINICAL HISTORY Clinical History: REASON FOR SEND OUT: ATTENDING PHYSICIAN NAME: New transient neurological s/s - suspected TIA HISTORY/REASON FOR EXAM: confusion Report Status: Verified Date Reported: AUG 29, 2024 Date Verified: AUG 29, 2024 Trimming Caser E-Sig: Report: HISTORY confusion COMPARISON No prior [...] Staff: ABDIRAHMAN CROW, Staff Physician Verified by executive talent acquisition consultant for ABDIRAHMAN CROW /ABDIRAHMAN ROJAS [facility] Pathology Reports: +/- 30 days of the [...] comes from all [place] treatment facilities. Date/Time Pathology Report Provider Source Aug 29, 2024 10:18 PM LR MICROBIOLOGY RE PORT: Reporting Lab: [facility] [CLIA# [id number]] [address] [place] [address] Accession [UID]: [id number] [[id number]] Received: Aug 29, 2024@22:18 Collection sample: URINE, CLEAN CATCH Collection date: Aug 29, 2024 22:18 Site/Specimen: URINE Provider: FELISA COLE Test(s) ordered: CULTURE, URINE................ completed: Aug 31, 2024 09:51 * BACTERIOLOGY FINAL REPORT => Aug 31, 2024 09:51 TECH CODE: [id number] Bacteriology Remark(s): NO GROWTH 08/30/2024 <10,000 CFU/ML. 08/31/2024 =--=--=--=--=--=--=--=--=--=-- =--=--=--=--=--=--=--=--=--=-- =--=--=--=--=--=-- Performing Laboratory: Bacteriology Report Performed By: [facility] [CLIA# [id number]] [address] [place] [id number] MAGDY CAL[place]E [place] Encounter Notes: All associated encounter notes This section contains the clinical notes associated to the Encounter. Date/Time Encounter Note(s) Provider Source Aug 31, 2024 10:49 AM ADDENDUM: LOCAL TITLE: Addendum STANDARD TITLE: ADDENDUM DATE OF NOTE: AUG 31, 2024@10:49:15 ENTRY DATE: AUG 31, 2024@10:49:16 AUTHOR: JAMES ARMSTRONG EXP COSIGNER: URGENCY: STATUS: COMPLETED PLEASE REMOVE FROM PCMM - ANTICIPATED INSTITUTIONALIZATION /es/ JAMES ARMSTRONG AMSA Signed: 08/31/2024 10:49 Receipt Acknowledged By: 08/31/2024 12:39 /rosette/ Karen Squires, MSN, RN, CNL [facility] Copyholder/Nurse Lead Cook * AWAITING SIGNATURE * BUNNY RAWLS --- Original Document --- 08/31/24 [facility] CASTER INVESTMENT CASTING NOTE: DATE OF ADMISSION TO [facility]: Feb DATE OF DISCHARGE: [id number] Permanent Discharge PAST DIAGNOSIS: Active problems - Computerized Problem List is the source for the followin. Gastroesophageal reflux disease without esophagitis 2. Constipation 3. Multiple sclerosis 4. Age related macular degeneration 5. Closed fracture of shaft of right fibula 6. Incontinence 7. Type 2 diabetes mellitus 8. Essential hypertension 9. Hyperlipidemia 10. Carcinoma of prostate 11. Pain of right knee joint REASON FOR DISCHARGE: Anticipated Institutionalization: Name of facility: [facility] phone#: Admission Date: 03/04/24 Period to cover: 08/17/24-11/14/24 [...] OA and pain and decreased ROM, decreased caddy master strength L hand, incontinence, impaired standing balance and activity tolerance ADL deficits: Dressing: assist donning shirt and pants. Toileting: incontinence, wears depends, assist with clothing and cleanup. Bathing: assist seated Prosthetics/equipment/devices: manual w/c, VA ramp, threshold ramp at front door, non-VA hospital bed with memory foam mattress and upper half bed rails, FWW, reconnaissance crewmember, leg weekend receptionist, lift chair, bedside table, stationary exercise pedaler, non-VA bariatric rollator, x1 grab bar on doorframe, x1 grab bar outside shower, x3 grab bars inside shower, fall mat, bed rail, , BSC. On Feb ordered handheld shower, standard F22 rollator, ROHO [id number] mid profile cushion Living arrangements: with spouse Mental Status please see dated 03/04/24 Behavioral concerns-none Patient safety concerns: fall risk Emergency Preparedness Priority Code: 3-LOW Prognosis: fair CODE STATUS: FULL PROBLEM: Impaired physical mobility related to fatigue and weakness LLE with MS long term care pharmacist goals developed further with [place] include do ROM so no further decline [...] prevention as needed RN PROBLEM: DIABETES GOALS: skilled nursing goals developed further with include: will have HgbA1c level 8 CHRONIC WILL MANAGE UNTIL DISCHARGE TARGET DATE FOR GOAL: Within the next quarter unless otherwise specified. STATUS: A1C 02/06/24 6.4 RN INTERVENTIONS for routine visits: Monitor for symptoms of hypoglycemia and hyperglycemia. RN Educate /caregiver on how to manage episodes of hypo/hyperglycemia as needed. RN Monitor medication compliance. RN Reinforce recommended diet with [place]/caregiver. RN Collect labs as ordered. Nurse Encourage /caregiver to perform blood sugar checks as recommended. DOUGH SHEETER-knee pain long term care pharmacist goals developed further with [place] include: Will report relief of pain at [...] each visit RN Encourage /cg to notify [facility] of new or uncontrolled pain. RN Assess for pain at home visits. RN Encourage medication compliance. RN Encourage use of nonpharmacological pain methods. RN PROBLEM: HYPERTENSION [place] Stated goal: skilled nursing goals developed further with [place] include: BP to be less than 140/90 Chronic will manage until discharge. TARGET DATE FOR GOAL: Within the next quarter unless otherwise specified. STATUS: New patient to [facility]-will monitor his BP RN INTERVENTIONS for routine visits: Monitor blood pressure, pulse, respiration every visit. RN Educate [place] on signs/symptoms of high blood as needed. RN Monitor and report to provider any signs/symptoms of high blood pressure ( headaches, dizziness, chest pain, peripheral edema, blurred vision, diminished urine output ,nausea, vomiting ). RN Monitor medication use every visit. RN Reinforce Recommended Diet. RN/RD PROBLEM: MEDICATION ADHERENCE/MANAGEMENT long term care pharmacist goals developed further with include: Will take medications with 90 - 100% accuracy as evidenced by one or more of the following: medminder use, caregiver interview, medication list, ordering pattern, [facility] observation. /Caregiver will report any adverse reactions, side effects, or concerns to [facility] relative to medication issues. TARGET DATE FOR GOAL: Within the next quarter, unless otherwise specified. Chronic- Will manage until discharge. STATUS: new patient -will monitor for compliance-FH RN INTERVENTIONS for routine visits: Remind /Caregiver to report any OTC use to [facility]. RN Monitor medication adherence every visit. RN [...] PT exercises for the next 6 weeks long term care pharmacist goals developed further with include Patient's care needs will be coordinated within several agencies TARGET DATE FOR GOAL: Within the next quarter unless otherwise specified STATUS: Vren jessica for [employer] OPERATOR/HM program and Yg for PT-FH RN INTERVENTIONS for routine visits: Patient followed by Home Health Agency: this info is found on the consult for home health Monitor services provided by Home Health Agency . RN Monitor for need for any equipment, supplies or specialty services provided by [facility]. RN Coordination of information between the Home Health Agency and [facility] PACT. RN PROBLEM: ADVANCE DIRECTIVES/LIFE PLANNING [place] stated goal: I will think about doing an advance directive. long term care pharmacist goals developed further with [place] include: Completing advance directives TARGET DATE: Quarterly STATUS: None on file at this time. Advance Directive?No Yes on file in CPRS Living Will?No Yes on file in CPRS Durable Power of Distribution Estimator for Health Care? No/Yes Who? Full name and phone # INTERVENTIONS: Provide education and ongoing review of Advance Directives. SW Assist patient in completion of new Advance Directive if desired. SW PROBLEM: LONG-TERM CARE PLANNING stated goal: I wish to stay home. skilled nursing goals developed further with include: STATUS: lives at home with his . TARGET DATE: Quarterly INTERVENTIONS: said she will care for [place] as long as she can, but placement may be needed in the future. Assist [place] and caregiver/medical decision maker in discussing life plans in relation to needs and available supports/services. SW Provide options of care and assist with any placement issues. SW HEALTH MAINTENANCE PROBLEM: SAFETY ISSUE - POTENTIAL FOR INJURY FROM FALLS GOALS: 1. [place] will have #1 no more than one [...] Contact info for seating and mobility clinic is unable to care for patient safely in the home-he is expected to be a permanant placement at the facility that he is currently admitted to- /es/ LYNN ALCOCER RN Signed: 08/31/2024 09:47 Receipt Acknowledged By: 08/31/2024 10:49 /es/ Jania Jimenez, Pharm.D., BCACP, BCGP Pharmacist for DONNA SHOOK 08/31/2024 10:30 /es/ Rosemarie Bolivar RD, LD Clinical Dietitian 08/31/2024 10:27 /es/ SOPHIA ARIAS PSYCHOLOGIST 08/31/2024 10:34 /es/ JOSHUA HILL * AWAITING SIGNATURE * SRINIVAS HUFFMAN 08/31/2024 10:35 /es/ Aarti Villanueva, MSN, PASTRY MIXER Nurse Practitioner, [facility] for YULISSA HENDERSON 08/31/2024 10:49 /es/ JAMES HART-CDD [facility] Aug 31, 2024 09:44 AM [facility] DISCHARGE NOTE: LOCAL TITLE: [facility] CASTER INVESTMENT CASTING NOTE STANDARD TITLE: PC DISCHARGE NOTE DATE OF NOTE: AUG 31, 2024@09:44 ENTRY DATE: AUG 31, 2024@09:44:39 AUTHOR: LYNN ALOCCER EXP COSIGNER: URGENCY: STATUS: COMPLETED [facility] CASTER INVESTMENT CASTING NOTE Has ADDENDA DATE OF ADMISSION TO [facility]: Feb DATE OF DISCHARGE: [id number] Permanent Discharge PAST DIAGNOSIS: Active problems - Computerized Problem List is the source for the followin. Gastroesophageal reflux disease without esophagitis 2. Constipation 3. Multiple sclerosis 4. Age related macular degeneration 5. Closed fracture of shaft of right fibula 6. Incontinence 7. Type 2 diabetes mellitus 8. Essential hypertension 9. Hyperlipidemia 10. Carcinoma of prostate 11. Pain of right knee joint REASON FOR DISCHARGE: Anticipated Institutionalization: Name of facility: [facility] phone#: Admission Date: 03/04/24 Period to cover: 08/17/24-11/14/24 [...] OA and pain and decreased ROM, decreased caddy master strength L hand, incontinence, impaired standing balance and activity tolerance ADL deficits: Dressing: assist donning shirt and pants. Toileting: incontinence, wears depends, assist with clothing and cleanup. Bathing: assist seated Prosthetics/equipment/devices: manual w/c, VA ramp, threshold ramp at front door, non-VA hospital bed with memory foam mattress and upper half bed rails, FWW, reconnaissance crewmember, leg weekend receptionist, lift chair, bedside table, stationary exercise pedaler, non-VA bariatric rollator, x1 grab bar on doorframe, x1 grab bar outside shower, x3 grab bars inside shower, fall mat, bed rail, SW, BSC. On Feb ordered handheld shower, standard F22 rollator, ROHO [id number] mid profile cushion Living arrangements: with spouse Mental Status please see dated 03/04/24 Behavioral concerns-none Patient safety concerns: fall risk Emergency Preparedness Priority Code: 3-LOW Prognosis: fair CODE STATUS: FULL PROBLEM: Impaired physical mobility related to fatigue and weakness LLE with MS skilled nursing goals developed further with include do ROM so no further decline [...] pressure, pulse, respiration every visit. RN Educate [place] on signs/symptoms worsening MS as needed RN Monitor medication use every visit. RN Educate / caregiver on bedrest for pain/fatigue during exacerbation as needed-RN Educate on safety/fall prevention as needed RN PROBLEM: DIABETES GOALS: skilled nursing goals developed further with include: will have HgbA1c level 8 CHRONIC WILL MANAGE UNTIL DISCHARGE TARGET DATE FOR GOAL: Within the next quarter unless otherwise specified. STATUS: A1C 02/06/24 6.4 RN INTERVENTIONS for routine visits: Monitor for symptoms of hypoglycemia and hyperglycemia. RN Educate /caregiver on how to manage episodes of hypo/hyperglycemia as needed. RN Monitor medication compliance. RN Reinforce recommended diet with /caregiver. RN Collect labs as ordered. Nurse Encourage /caregiver to perform blood sugar checks as recommended. DOUGH SHEETER-knee pain skilled nursing goals developed further with include: Will report relief of pain at [...] each visit RN Encourage /cg to notify [facility] of new or uncontrolled pain. RN Assess for pain at home visits. RN Encourage medication compliance. RN Encourage use of nonpharmacological pain methods. RN PROBLEM: HYPERTENSION [place] Stated goal: long term care pharmacist goals developed further with [place] include: BP to be less than 140/90 Chronic will manage until discharge. TARGET DATE FOR GOAL: Within the next quarter unless otherwise specified. STATUS: New patient to [facility]-will monitor his BP FH RN INTERVENTIONS for routine visits: Monitor blood pressure, pulse, respiration every visit. RN Educate on signs/symptoms of high blood as needed. RN Monitor and report to provider any signs/symptoms of high blood pressure ( headaches, dizziness, chest pain, peripheral edema, blurred vision, diminished urine output ,nausea, vomiting ). RN Monitor medication use every visit. RN Reinforce Recommended Diet. RN/RD PROBLEM: MEDICATION ADHERENCE/MANAGEMENT long term care pharmacist goals developed further with include: Will take medications with 90 - 100% accuracy as evidenced by one or more of the following: medminder use, caregiver interview, medication list, ordering pattern, [facility] observation. /Caregiver will report any adverse reactions, side effects, or concerns to [facility] relative to medication issues. TARGET DATE FOR GOAL: Within the next quarter, unless otherwise specified. Chronic- Will manage until discharge. STATUS: new patient -will monitor for compliance-FH RN INTERVENTIONS for routine visits: Remind /Caregiver to report any OTC use to [facility]. RN Monitor medication adherence every visit. RN Educate /caregiver on how to reorder medications as needed. RN Provide education on medication regimen, purpose, and side effects at initial assessment, with new medications, when medications changed, and as needed. RN Provide [place]/Caregiver with current medication list and reconcile medications with each visit. RN PROBLEM: Care Management for VA purposes for patients with [facility] stated goal I will participate in PT exercises for the next 6 weeks long term care pharmacist goals developed further with [place] include Patient's care needs will be coordinated within several agencies TARGET DATE FOR GOAL: Within the next quarter unless otherwise specified STATUS: Vern jessica for [employer] OPERATOR/HM program and Yg for PT-FH RN INTERVENTIONS for routine visits: Patient followed by Home Health Agency: this info is found on the consult for home health Monitor services provided by Home Health Agency . RN Monitor for need for any equipment, supplies or specialty services provided by [facility]. RN Coordination of information between the Home Health Agency and [facility] PACT. RN PROBLEM: ADVANCE DIRECTIVES/LIFE PLANNING [place] stated goal: I will think about doing an advance directive. skilled nursing goals developed further with [place] include: Completing advance directives TARGET DATE: Quarterly STATUS: None on file at this time. Advance Directive?No Yes on file in CPRS Living Will?No Yes on file in CPRS Durable Power of Distribution Estimator for Health Care? No/Yes Who? Full name and phone # INTERVENTIONS: Provide education and ongoing review of Advance Directives. SW Assist patient in completion of new Advance Directive if desired. SW PROBLEM: LONG-TERM CARE PLANNING [place] stated goal: I wish to stay home. long term care pharmacist goals developed further with [place] include: STATUS: [place] lives at home with his . TARGET DATE: Quarterly INTERVENTIONS: said she will care for as long as she can, but placement may be needed in the future. Assist [place] and caregiver/medical decision maker in discussing life plans in relation to needs and available supports/services. SW Provide options of care and assist with any placement issues. SW HEALTH MAINTENANCE PROBLEM: SAFETY ISSUE - POTENTIAL FOR INJURY FROM FALLS GOALS: 1. [place] will have #1 no more than one [...] Contact info for seating and mobility clinic is unable to care for patient safely in the home-he is expected to be a permanant placement at the facility that he is currently admitted to- /es/ LYNN ALCOCER RN Signed: 08/31/2024 09:47 Receipt Acknowledged By: 08/31/2024 10:49 /es/ Jania Jimenez, Pharm.D., BCACP, BCGP Pharmacist for DONNA Deshaun SHOOK 08/31/2024 10:30 /es/ Rosemarie Bolivar, RD, LD Clinical Dietitian 08/31/2024 10:27 /es/ SOPHIA ARIAS PSYCHOLOGIST 08/31/2024 10:34 /es/ JOSHUA HILL 09/01/2024 08:31 /es/ SRINIVAS HUFFMAN, PT, DPT PHYSICAL THERAPIST, HB 08/31/2024 10:35 /es/ Aarti Villanueva, MSN, PASTRY MIXER Nurse Practitioner, HB for YULISSA HENDERSON 08/31/2024 10:49 /es/ JAMES HAWTHORNE 08/31/2024 ADDENDUM STATUS: COMPLETED PLEASE REMOVE FROM PCMM - ANTICIPATED INSTITUTIONALIZATION /es/ JAMES HAWTHORNE Signed: 08/31/2024 10:49 Receipt Acknowledged By: 08/31/2024 12:39 /es/ Karen Squires, MSN, RN, CNL [facility] Copyholder/Nurse Lead Cook * AWAITING SIGNATURE * BUNNY RAWLS,LYNN RUBI-CDD [facility]
[2024-09-02] VITALS (12 sets, daily range): BP systolic 110–146; BP diastolic 54–66; PULSE 84–94; RESP 15–22; TEMP 37.1–37.5; O2SAT 93–95; BMI 35.4
--- OUTSIDE RECORDS SUMMARY | 2024-09-02 02:38 | XMS_ITS | Encounter Summary ---
Author Name [facility] Organization 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 Name Role Phone YULISSA HENDERSON [...] PLAN F Mar 24, 2014 PLAN F [phone] LUIS MANUEL PERDOMO PATIENT [facility] [place] [facility] PREFERRED PROVIDER ORGANIZAT ION (PPO) [facility] Sep 21, 2012 [id number] [phone] LUIS MANUEL PERDOMO PATIENT [employer] ([id number]) PRESCRIPT ION WL3A Sep 21, 2012 [id number] [phone] LUIS MANUEL PERDOMO PATIENT MEDICARE (WNR) MEDICARE (M) PART B Sep 21, 2012 PART B [id number] NOEMI PERDOMO PATIENT MEDICARE (WNR) MEDICARE (M) PART A Jan 22, 2011 PART A [id number] NOEMI PERDOMO PATIENT MEDICARE PART D (WNR) MEDICARE (M) PART D Mar 24, 2014 PART D [id number] LUIS MANUEL PERDOMO PATIENT Selected Encounter This section includes the information on record at [place] for the Encounter. Date/Time Encounter Type Encounter Description Reason Pro vider Source Sep 02, 2024 06:38 AM Outpatient Encounter [facility] ASSESSMENT I[facility] Encounter Template Text not used by [place] Plan of Treatment: Future Appointments (+ 6 months) and Future Tests (+/- 45 days) The Plan of Treatment section includes future care activities for the patient from all [place] treatmentfacilities. This section includes future appointments and [...] 30, 2024 01:30 PM AMBULATORY - SURGERY [facility] Active, Pending, and Scheduled Orders This section includes a listing of several types of active, pending, and scheduled orders, including clinic medications orders, diagnostic test orders, procedure orders and consult orders; where the start date of the order is 45 days before the date of the Encounter or 45 days after the date of theEncounter. The data comes from all [place] treatment facilities. Test Date/Time Test Type Test Details Facility Name Aug 29, 2024 09:55 PM Laboratory - Chemi stry Order HIGH SENSITIVITY TROPONIN I [id number] STAT WC ONCE [facility] Lab Results: +/- 30 days [...] Type Comment Aug 29, 2024 10:04 PM [facility] URINALYSIS WITH REFLEX TO CULTURE URINE Speci men Type: URINE Comment: ~For Test: URINALYSIS WITH REFLEX TO CULTURE ~REORDER Ordering Provider: FELISA COLE Report Released Date/Time: Aug 29, 2024 09:36 PM Reporting Lab: [place] [address] Performing Lab: [address] [address] URINE COLOR Yellow Colorless-Yellow APPEARANCE Clear Clear [...] /[LPF] 0-28 Aug 29, 2024 08:32 PM [facility] HIGH SENSITIVITY TROPONIN I PLASMA [...] Aug 29, 2024 07:55 PM Reporting Lab: [address] [address] Performing Lab: [address] [address] HIGH SENSITIVITY TROPONIN I 7 4-35 Aug 29, 2024 08:32 PM [facility] CBC/PLT BLOOD Specimen Type: BLOOD No comment entered. Ordering Provider: FELISA COLE Report Released Date/Time: Aug 29, 2024 07:55 PM Reporting Lab: [address] [address] Performing Lab: [address] [address] WBC 11.2 10*3/uL H 5.0-10.0 RBC 3.97 10*6/uL L 4.6-6.2 HGB 10.9 g/dL L 14.0-18.0 HCT 33.5 L 42.0-52.0 MCV 84.4 fL 80.0-94.0 MCH 27.5 pg 27.0-31.0 MCHC 32.5 g/dL 32.0-36.0 PLT 230 10*3/uL 150-450 MPV 10.2 fL 9.0-13.1 RDW 14.6 11.0-16.0 NRBC 0.0 0.0-0.0 Aug 29, 2024 08:32 PM [facility] PANEL 5 PLASMA Specimen Type: [...] 29, 2024 07:55 PM Reporting Lab: [place] [address] [address] Performing Lab: [facility] [address] [facility] [address] CREATININE 0.85 mg/dL 0.72-1.25 UREA NITROGEN 15 [...] and tobacco- related health factors from the [place] facility where the Encounter took place. Current Smoking Status This section includes the most current smoking, or tobacco-related health factor, from the [place] facility where the Encounter took place. Date/Time Current Smoking Status Comment Gabriel ity Feb 06, 2024 10:00 AM VA-TOBACCO USER SOME DAYS [facility] Tobacco Use History This section includes a history of the smoking, or tobacco-related health factors, that were collected on or before the date of the Encounter. The data comes from the [place] facility where the Encounter took place. 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 The data comes from all [place] treatment facilities. 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 The data comes from all [place] treatment facilities. Date/Time Pathology Report Provider Source Aug 29, 2024 10:18 PM LR MICROBIOLOGY RE PORT: Reporting Lab: [facility] [CLIA# [id number]] [address] [place] [phone] Accession [UID]: [id number] [[id number]] Received: Aug 29, 2024@22:18 Collection sample: URINE, CLEAN CATCH Collection date: Aug 29, 2024 22:18 Site/Specimen: URINE Provider: FELISA COLE Test(s) ordered: CULTURE, URINE................ completed: Aug 31, 2024 09:51 * BACTERIOLOGY FINAL REPORT => Aug 31, 2024 09:51 TECH CODE: [id number] Bacteriology Remark(s): NO GROWTH 08/30/2024 <10,000 CFU/ML. 08/31/2024 =--=--=--=--=--=--=--=--=--=-- =--=--=--=--=--=--=--=--=--=-- =--=--=--=--=--=-- Performing Laboratory: Bacteriology Report Performed By: [facility] [CLIA# [id number]] [address] [place] [phone] MAGDY CALABRESE [facility] Encounter Notes: All associated encounter notes This section contains the clinical notes associated to the Encounter. Date/Time Encounter Note(s) Provider Source Sep 02, 2024 06:38 AM [facility] NOTE: LOCAL TITLE: N SKILLED HOME CARE NOTE STANDARD TITLE: [facility] NOTE DATE OF NOTE: SEP 02, 2024@06:38 ENTRY DATE: SEP 02, 2024@06:38:27 AUTHOR: ANNIE LAGUERRE EXP COSIGNER: URGENCY: STATUS: COMPLETED Medication Interaction Report received from 's home health agency. Report sent by encrypted email to [facility]'s PCP for review. /rosette/ Annie Laguerre RN, MSN, WOCN [employer] Injection Molding Machine Tender Signed: 09/02/2024 06:38 Receipt Acknowledged By: 09/02/2024 09:21 /rosette/ NICOL VIVAS for ANNIE STAPLETON[facility]
--- OUTSIDE RECORDS SUMMARY | 2024-09-02 04:20 | XMS_ITS | Continuity of Care Document ---
Author Name [facility] Organization 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 Unavailable Unavailable Problems Combined list of problems from Department of [facility] and [facility] facilities. It does not include entries that were removed or entered in error. Problem Status Onset Date Problem Type Date of Resolution Comments Source Age related macular degeneration Active Condition [facility] Carcinoma of prostate Active Condition [facility] Closed fracture of shaft of right fibula Active Condition [facility] Constipation Active Condition [facility] Essential hypertension Active Condition [facility] Gastroesophageal reflux disease without esophagitis Active Condition [facility] Hyperlipidemia Active Condition [place] [facility] Incontinence Active Condition [facility] Multiple sclerosis Active Condition [facility] Pain of right knee joint Active Condition [facility] Type 2 diabetes mellitus Active Condition [facility] Diagnosis: ICD-10-CM G35 Multiple sclerosis Active Diagnosis [facility] Diagnosis: ICD-10-CM I10 Essential (primary) hypertension Active Diagnosis [facility] Diagnosis: ICD-10-CM Z65.9 Problem related to unspecified psychosocial circumstances Active Diagnosis [facility] Diagnosis: ICD-10-CM Z79.899 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 [facility] Diagnosis: ICD-10-CM K21.9 Gastro-esophageal reflux disease without esophagitis Active Diagnosis [facility] Diagnosis: ICD-10-CM M25.561 Pain in right knee Active Diagnosis [facility] Diagnosis: ICD-10-CM S82.401A Unsp fracture of shaft of right fibula, init for clos fx Active Diagnosis [facility] Diagnosis: ICD-10-CM Z75.5 Holiday relief care Active Diagnosis [facility] Diagnosis: ICD-10-CM E66.09 Other obesity due to excess calories Active Diagnosis [facility] Diagnosis: ICD-10-CM Z71.2 Person consulting for explanation of exam or test findings Active Diagnosis [place] [facility] Medications Combined list of outpatient medications from [...] TABLET BY MOUTH AT BEDTIME ORAL ACTIVE COMER,BUCK Campos 2023 [place] [facility] BISOPROLOL FUMARATE 5MG TAB TAKE ONE TABLET BY MOUTH DAILY ORAL ACTIVE COMER,BUCK Campos 2023 [place] [facility] CHOLECALCIF [...] INFECTIO N APPLY TO GROIN RASH TOPICA L DISCONT INUED BY SOPHY R 05/19/2025 [id number] FLO HENDERSON 2024 60 [place] DICLOFENAC NA 1% GEL,TOP APPLY 2 GRAM STRIP TO AFFECTED AREA EVERY 6 HOURS NEEDED FOR PAIN APPLY TO RIGHT KNEE TOPICA L DISCONT INUED BY SOPHY R 05/19/2025 [id number] 5 FLO [place]END[place] 2024 200 [place] FAMOTIDINE 20MG TAB TAKE ONE TABLET BY MOUTH TWICE A DAY NEEDED ORAL ACTIVE COMERBUCK 2023 [place] [facility] GABAPENTIN TAB TAKE 100MG BY MOUTH FOUR TIMES A DAY ORAL ACTIVE COMER,BUCK Campos 2023 [place] [facility] HYDROPHILIC (EQV EUCERIN) CREAM,TOP APPLY SMALL AMOUNT TO AFFECTED AREA NEEDED FOR DRY SKIN TOPICA L DISCONT INUED BY PROVIDE R 05/19/2025 [id number] 5 FLO HENDERSON 2024 454 [place] IPRATROPIUM BR 0.03% SOLN,SPRAY, NASAL SPRAY 1 SPRAY IN NOSE WITH MEALS FOR NASAL ALLERGIE S NASAL DISCONT INUED BY PROVIDE R 05/19/2025 [id number] 5 FLO [place]ENDERSON 2024 30 [place] LEUPROLIDE ACETATE (ELIGARD) 45MG (6 MONTH) INJ,SUSP,LA 45MG (1 DOSE) UNDER THE SKIN ONCE SUBCUT ANEOUS ACTIVE COMER,BUCK Campos 2023 [place] [facility] MELOXICAM 7.5MG TAB TAKE ONE TABLET BY MOUTH DAILY FOR PAIN OR INFLAMMA TION -TAKE WITH FOOD OR MILK ORAL DISCONT INUED BY PROVIDE R 05/01/2025 [id number] 5 FLO HENDERSON 2024 90 [place] METFORMIN HCL 500MG 24HR TAB,SA TAKE ONE TABLET BY MOUTH DAILY ORAL ACTIVE COMERBUCK 2023 [place] [facility] METHENAMINE HIPPURATE 1GM TAB TAKE ONE TABLET BY MOUTH TWICE A DAY ORAL ACTIVE COMER,BUCK Campos 2023 [place] [facility] MULTIVITAMI N/OPTH AREDS SINGLE STRENGTH TAB TAKE 2 CAPSULES BY MOUTH DAILY ORAL ACTIVE COMER,BUCK Campos 2023 [place] [facility] OCRELIZUMAB INJ,SOLN INJECT INTO THE VEIN DIRECTED Q 6 MONTHS INTRAV ENOUS ACTIVE COMERBUCK 2023 [place] [facility] POLYETHYLEN E GLYCOL 3350 PWDR,ORAL MIX 17 GRAMS (ONE CAPFUL FILLED TO LINE) IN LIQUID AND TAKE BY MOUTH DAILY ORAL ACTIVE COMER,BUCK Campos 2023 [place] [facility] PSYLLIUM CAP,ORAL TAKE 1 CAPSULE BY MOUTH DAILY ORAL ACTIVE COMER,BUCK R 2023 [place] [facility] SILODOSIN 8MG CAP,ORAL TAKE 1 CAPSULE BY MOUTH DAILY ORAL ACTIVE COMER,BUCK R 2023 [place] [facility] Immunizations Combined list of available immunizations from the Department of Defense and Veterans Affairs facilities. Immunization Series Date Given Administered By Site Reaction Lot Number CVX Code Drug License Registration Examiner Status Comments Source INFLUENZA, UNSPECIFIED FORMULATION 2023 [...] REGISTRY, [place] [facility] COVID-19 (Need), MRNA, LNP-S, PF, 30 MCG/0.3 ML DOSE, HERMAN-SUCROSE (AGES 12+ YEARS) 4 2021 217 complet ed HISTORICA L INFORMATI ON - FROM OTHER REGISTRY, [place] [facility] COVID-19 (PFIZER), MRNA, LNP-S, PF, 30 MCG/0.3 ML DOSE 3 2020 208 complet ed HISTORICA L INFORMATI ON - FROM OTHER REGISTRY, [place] [facility] SARS-COV-2 (COVID-19) VACCINE,UNSPE CIFIED 4 2020 213 complet ed HISTORICA L INFORMATI ON - FROM OTHER REGISTRY, [place] [facility] SARS-COV-2 (COVID-19) VACCINE,UNSPE CIFIED 3 2020 213 complet ed HISTORICA L INFORMATI ON - FROM OTHER REGISTRY, [place] [facility] COVID-19 (PFIZER), MRNA, LNP-S, PF, 30 MCG/0.3 ML DOSE 2 2020 208 complet ed HISTORICA L INFORMATI ON - FROM OTHER REGISTRY, [place] [facility] COVID-19 (PFIZER), MRNA, LNP-S, PF, 30 MCG/0.3 ML DOSE 1 2020 208 complet ed HISTORICA L INFORMATI ON - FROM OTHER REGISTRY, [place] [facility] INFLUENZA, SPLIT VIRUS, QUADRIVALENT, PRESERVATIVE 3 2019 158 complet ed HISTORICA L INFORMATI ON - FROM OTHER REGISTRY, [place] [facility] ZOSTER RECOMBINANT 1 2018 187 complet ed HISTORICA L INFORMATI ON - FROM OTHER REGISTRY, [place] [facility] INFLUENZA, SPLIT VIRUS, QUADRIVALENT, PRESERVATIVE 2 2018 158 complet ed HISTORICA L INFORMATI ON - FROM OTHER REGISTRY, [place] [facility] HEPB-CPG 2 2018 189 complet ed HISTORICA L INFORMATI ON - FROM OTHER REGISTRY, [place] [facility] HEPB-CPG 1 2018 189 complet ed HISTORICA L INFORMATI ON - FROM OTHER REGISTRY, [place] [facility] HEP A, ADULT 2 2018 52 complet ed HISTORICA L INFORMATI ON - FROM OTHER REGISTRY, [place] [facility] HEP A, ADULT 1 2017 52 complet ed HISTORICA L INFORMATI ON - FROM OTHER REGISTRY, [place] [facility] INFLUENZA, SPLIT VIRUS, QUADRIVALENT, PRESERVATIVE 1 2017 158 complet ed HISTORICA L INFORMATI ON - FROM OTHER REGISTRY, [place] [facility] HEP A, UNSPECIFIED FORMULATION 1 2017 85 complet ed HISTORICA L INFORMATI ON - FROM OTHER REGISTRY, [place] [facility] PNEUMOCOCCAL, UNSPECIFIED FORMULATION 2016 109 complet ed HISTORICA L INFORMATI ON - FROM OTHER REGISTRY, [place] [facility] Results Combined list of recent chemistry, hematology and other laboratory results from Department of Defense and Veterans Affairs, ranging from 15 months to all on record, depending upon the facility. Order Name Results Value Reference Range Date Interpretation Specimen Comments Source URINALYS IS WITH REFLEX TO CULTURE COLOR OF URINE Yellow 08/29 Specimen Type: URINE Comment: ~For Test: URINALYSIS WITH REFLEX TO CULTURE ~REORDER Ordering Provider: SUAD COLE Report Released Date/Time: Aug 29, 2024 09:36 PM Reporting Lab: [place] [address] [address] Performing Lab: [place] [phone] [place] [address] URINALYS IS WITH REFLEX TO CULTURE APPEARANCE OF URINE Clear 08/29 Specimen Type: URINE Comment: ~For Test: URINALYSIS WITH REFLEX TO CULTURE ~REORDER Ordering Provider: SUAD COLE Report Released Date/Time: Aug 29, 2024 09:36 PM Reporting Lab: [place] [address] [address] Performing Lab: [place] [address] [address] [facility] URINALYS IS WITH REFLEX TO CULTURE UROBILINOG EN [MASS/VOLU ME] IN URINE BY TEST STRIP 4.0 mg/dL 08/29 H Specimen Type: URINE Comment: ~For Test: URINALYSIS WITH REFLEX TO CULTURE ~REORDER Ordering Provider: SUAD COLE Report Released Date/Time: Aug 29, 2024 09:36 PM Reporting Lab: [place] [address] [address] Performing Lab: [place] [address] [address] [facility] URINALYS IS WITH REFLEX TO CULTURE HEMOGLOBIN [PRESENCE] IN URINE BY TEST STRIP Negative 08/29 Specimen Type: URINE Comment: ~For Test: URINALYSIS WITH REFLEX TO CULTURE ~REORDER Ordering Provider: SUAD COLE Report Released Date/Time: Aug 29, 2024 09:36 PM Reporting Lab: [facility] [address] [address] Performing Lab: [facility] [address] [address] [facility] URINALYS IS WITH REFLEX TO CULTURE BILIRUBIN. TOTAL [PRESENCE] IN URINE BY TEST STRIP Negative 08/29 Specimen Type: URINE Comment: ~For Test: URINALYSIS WITH REFLEX TO CULTURE ~REORDER Ordering Provider: SUAD COLE Report Released Date/Time: Aug 29, 2024 09:36 PM Reporting Lab: [facility] [address] [address] Performing Lab: [facility] [address] [address] [facility] URINALYS IS WITH REFLEX TO CULTURE KETONES [MASS/VOLU ME] IN URINE BY TEST STRIP Negative mg/dL 08/29 Specimen Type: URINE Comment: ~For Test: URINALYSIS WITH REFLEX TO CULTURE ~REORDER Ordering Provider: SUAD COLE Report Released Date/Time: Aug 29, 2024 09:36 PM Reporting Lab: [facility] [address] [address] Performing Lab: [facility] [address] [address] [facility] URINALYS IS WITH REFLEX TO CULTURE PROTEIN [MASS/VOLU ME] IN URINE BY TEST STRIP TRACEmg/ dL 08/29 Specimen Type: URINE Comment: ~For Test: URINALYSIS WITH REFLEX TO CULTURE ~REORDER Ordering Provider: SUAD COLE Report Released Date/Time: Aug 29, 2024 09:36 PM Reporting Lab: [place] [address] [address] Performing Lab: [facility] [address] [address] [facility] URINALYS IS WITH REFLEX TO CULTURE PH OF URINE BY TEST STRIP 8.0 4.5 - 8.0 08/29 Specimen Type: URINE Comment: ~For Test: URINALYSIS WITH REFLEX TO CULTURE ~REORDER Ordering Provider: SUAD COLE Report Released Date/Time: Aug 29, 2024 09:36 PM Reporting Lab: [place] [address] Performing Lab: [address] [address] [facility] URINALYS IS WITH REFLEX TO CULTURE NITRITE [PRESENCE] IN URINE BY TEST STRIP Negative 08/29 Specimen Type: URINE Comment: ~For Test: URINALYSIS WITH REFLEX TO CULTURE ~REORDER Ordering Provider: SUAD COLE Report Released Date/Time: Aug 29, 2024 09:36 PM Reporting Lab: [address] [address] Performing Lab: [place] [phone] [place] [address] URINALYS IS WITH REFLEX TO CULTURE LEUKOCYTE ESTERASE [PRESENCE] IN URINE BY TEST STRIP MODERATE 08/29 H Specimen Type: URINE Comment: ~For Test: URINALYSIS WITH REFLEX TO CULTURE ~REORDER Ordering Provider: SUAD COLE Report Released Date/Time: Aug 29, 2024 09:36 PM Reporting Lab: [facility] [address] [address] Performing Lab: [address] [address] [facility] URINALYS IS WITH REFLEX TO CULTURE SPECIFIC GRAVITY OF URINE 1.018 1.005 - 1.030 08/29 Specimen Type: URINE Comment: ~For Test: URINALYSIS WITH REFLEX TO CULTURE ~REORDER Ordering Provider: SUAD COLE Report Released Date/Time: Aug 29, 2024 09:36 PM Reporting Lab: [place] [address] [address] Performing Lab: [address] [address] [facility] URINALYS IS WITH REFLEX TO CULTURE GLUCOSE [MASS/VOLU ME] IN URINE BY TEST STRIP Negative mg/dL 08/29 Specimen Type: URINE Comment: ~For Test: URINALYSIS WITH REFLEX TO CULTURE ~REORDER Ordering Provider: SUAD COLE Report Released Date/Time: Aug 29, 2024 09:36 PM Reporting Lab: [facility] [address] [address] Performing Lab: [address] [address] [facility] URINALYS IS WITH REFLEX TO CULTURE ERYTHROCYT ES [#/AREA] IN URINE SEDIMENT BY AUTOMATED COUNT 10 /[HPF] 0 - 3 08/29 H Specimen Type: URINE Comment: ~For Test: URINALYSIS WITH REFLEX TO CULTURE ~REORDER Ordering Provider: SUAD COLE Report Released Date/Time: Aug 29, 2024 09:36 PM Reporting Lab: [place] [phone] Performing Lab: [place] [phone] [facility] URINALYS IS WITH REFLEX TO CULTURE LEUKOCYTES [#/AREA] IN URINE SEDIMENT BY AUTOMATED COUNT 36 /[HPF] 0 - 3 08/29 H Specimen Type: URINE Comment: ~For Test: URINALYSIS WITH REFLEX TO CULTURE ~REORDER Ordering Provider: SUAD COLE Report Released Date/Time: Aug 29, 2024 09:36 PM Reporting Lab: [place] [phone] Performing Lab: [place] [phone] [facility] URINALYS IS WITH REFLEX TO CULTURE MUCUS [PRESENCE] IN URINE BY AUTOMATED TRACE/[L PF] 08/29 H Specimen Type: URINE Comment: ~For Test: URINALYSIS WITH REFLEX TO CULTURE ~REORDER Ordering Provider: SUAD COLE Report Released Date/Time: Aug 29, 2024 09:36 PM Reporting Lab: [place] [phone] Performing Lab: [place] [phone] [facility] URINALYS IS WITH REFLEX TO CULTURE YEAST.BUDD ING [PRESENCE] IN URINE BY COMPUTER ASSISTED METHOD 2+/[HPF] 08/29 H Specimen Type: URINE Comment: ~For Test: URINALYSIS WITH REFLEX TO CULTURE ~REORDER Ordering Provider: SUAD COLE Report Released Date/Time: Aug 29, 2024 09:36 PM Reporting Lab: [address] [address] Performing Lab: [place] [id number] URINALYS IS WITH REFLEX TO CULTURE EPITHELIAL CELLS.SQUA MOUS [#/AREA] IN URINE SEDIMENT BY AUTOMATED COUNT 16 /[LPF] 0 - 28 08/29 Specimen Type: URINE Comment: ~For Test: URINALYSIS WITH REFLEX TO CULTURE ~REORDER Ordering Provider: SUAD COLE Report Released Date/Time: Aug 29, 2024 09:36 PM Reporting Lab: [address] [address] Performing Lab: [place] [id number] HIGH SENSITIV ITY TROPONIN I TROPONIN I.CARDIAC [MASS/VOLU ME] IN SERUM OR PLASMA BY HIGH SENSITIVIT Y METHOD 7 4 - 35 08/29 Specimen Type: PLASMA Comment: Reference Ranges Females: 4 - 14 ng/L Males: 4 - 35 ng/L Limit of Quantitatio n: 4 ng/L Significant High-Sensit ivity Troponin I Delta at 2 hours, either rising or falling: >10 ng/L. Once baseline and 2-hour High-Sensit ivity Troponin I results are available, the Provider ordering the tests will calculate the HS-Troponin I Delta, the difference between the two values. High-Tropon in I values greater than the 99th percentile [...] elevated values. This assay is susceptible to interferenc e from total protein >8.8 g/dL. Total protein values from 9.0 to 12.0 g/dL decrease Troponin values at 500 ng/L by up to -16.3%. Although designed to minimize the effects of HAMA, heterophili c antibodies, and RF, the assay results may be impacted in a falsely negative way by these proteins. A High-Sensit ivity Troponin I information resource can be reached [...] decrease <15 G5 Kidney failure Ordering Provider: SUAD COLE Report Released Date/Time: Aug 29, 2024 07:55 PM Reporting Lab: [address] [address] Performing Lab: [address] [address] [facility] CBC/PLT LEUKOCYTES [#/VOLUME] IN BLOOD BY AUTOMATED COUNT 11.2 10*3/uL 5.0 - 10.0 08/29 H Specimen Type: BLOOD No comment entered. Ordering Provider: SUAD COLE Report Released Date/Time: Aug 29, 2024 07:55 PM Reporting Lab: [address] [address] Performing Lab: [address] [address] [facility] CBC/PLT ERYTHROCYT ES [#/VOLUME] IN BLOOD BY AUTOMATED COUNT 3.97 10*6/uL 4.6 - 6.2 08/29 L Specimen Type: BLOOD No comment entered. Ordering Provider: SUAD COLE Report Released Date/Time: Aug 29, 2024 07:55 PM Reporting Lab: [address] [address] Performing Lab: [address] [address] [facility] CBC/PLT HEMOGLOBIN [MASS/VOLU ME] IN BLOOD 10.9 g/dL 14.0 - 18.0 08/29 L Specimen Type: BLOOD No comment entered. Ordering Provider: SUAD COLE Report Released Date/Time: Aug 29, 2024 07:55 PM Reporting Lab: [address] [address] Performing Lab: [address] [address] [facility] CBC/PLT HEMATOCRIT [VOLUME FRACTION] OF BLOOD BY AUTOMATED COUNT 33.5 42.0 - 52.0 08/29 L Specimen Type: BLOOD No comment entered. Ordering Provider: SUAD COLE Report Released Date/Time: Aug 29, 2024 07:55 PM Reporting Lab: [address] [address] Performing Lab: [address] [phone] [place] [address] CBC/PLT MCV [ENTITIC VOLUME] BY AUTOMATED COUNT 84.4 fL 80.0 - 94.0 08/29 Specimen Type: BLOOD No comment entered. Ordering Provider: SUAD COLE Report Released Date/Time: Aug 29, 2024 07:55 PM Reporting Lab: [place] [phone] Performing Lab: [place] [phone] [place] [address] CBC/PLT MCH [ENTITIC MASS] BY AUTOMATED COUNT 27.5 pg 27.0 - 31.0 08/29 Specimen Type: BLOOD No comment entered. Ordering Provider: SUAD COLE Report Released Date/Time: Aug 29, 2024 07:55 PM Reporting Lab: [place] [phone] Performing Lab: [place] [phone] [place] [address] CBC/PLT MCHC [MASS/VOLU ME] BY AUTOMATED COUNT 32.5 g/dL 32.0 - 36.0 08/29 Specimen Type: BLOOD No comment entered. Ordering Provider: SUAD COLE Report Released Date/Time: Aug 29, 2024 07:55 PM Reporting Lab: [place] [phone] Performing Lab: [place] [phone] [place] [address] CBC/PLT PLATELETS [#/VOLUME] IN BLOOD 230 10*3/uL 150 - 450 08/29 Specimen Type: BLOOD No comment entered. Ordering Provider: SUAD COLE Report Released Date/Time: Aug 29, 2024 07:55 PM Reporting Lab: [place] [phone] Performing Lab: [place] [phone] [place] [address] CBC/PLT PLATELET MEAN VOLUME [ENTITIC VOLUME] IN BLOOD 10.2 fL 9.0 - 13.1 08/29 Specimen Type: BLOOD No comment entered. Ordering Provider: SUAD COLE Report Released Date/Time: Aug 29, 2024 07:55 PM Reporting Lab: [place] [phone] Performing Lab: [address] CBC/PLT ERYTHROCYT E DISTRIBUTI ON WIDTH [ENTITIC VOLUME] BY AUTOMATED COUNT 14.6 11.0 - 16.0 08/29 Specimen Type: BLOOD No comment entered. Ordering Provider: SUAD COLE Report Released Date/Time: Aug 29, 2024 07:55 PM Reporting Lab: [place] [phone] Performing Lab: [address] CBC/PLT NUCLEATED ERYTHROCYT ES/100 ERYTHROCYT ES IN BLOOD 0.0 0.0 - 0.0 08/29 Specimen Type: BLOOD No comment entered. Ordering Provider: USAD COLE Report Released Date/Time: Aug 29, 2024 07:55 PM Reporting Lab: [place] [phone] Performing Lab: [place] [id number] PANEL 5 CREATININE [MASS/VOLU ME] IN SERUM OR PLASMA 0.85 mg/dL 0.72 - 1.25 08/29 Specimen Type: PLASMA Comment: Reference Ranges Females: 4 - 14 ng/L Males: 4 - 35 ng/L Limit of Quantitatio n: 4 ng/L Significant High-Sensit ivity Troponin I Delta at 2 hours, either rising or falling: >10 ng/L. Once baseline and 2-hour High-Sensit ivity Troponin I results are available, the Provider ordering the tests will calculate the HS-Troponin I Delta, the difference between the two values. High-Tropon in I values greater than the 99th percentile [...] elevated values. This assay is susceptible to interferenc e from total protein >8.8 g/dL. Total protein values from 9.0 to 12.0 g/dL decrease Troponin values at 500 ng/L by up to -16.3%. Although designed to minimize the effects of HAMA, heterophili c antibodies, and RF, the assay results may be impacted in a falsely negative way by these proteins. A High-Sensit ivity Troponin I information resource can be reached in [facility] in the Tools menu, under the [...] decrease <15 G5 Kidney failure Ordering Provider: SUAD COLE Report Released Date/Time: Aug 29, 2024 07:55 PM Reporting Lab: [facility] [address] [facility] [address] Performing Lab: [facility] [address] [facility] [address] [facility] PANEL 5 UREA NITROGEN [MASS/VOLU ME] IN SERUM OR PLASMA 15 mg/dL 08/29 Specimen Type: PLASMA Comment: Reference Ranges Females: 4 - 14 ng/L Males: 4 - 35 ng/L Limit of Quantitatio n: 4 ng/L Significant High-Sensit ivity Troponin I Delta at 2 hours, either rising or falling: >10 ng/L. Once baseline and 2-hour High-Sensit ivity Troponin I results are available, the Provider ordering the tests will calculate the HS-Troponin I Delta, the difference between the two values. High-Tropon in I values greater than the 99th percentile [...] elevated values. This assay is susceptible to interferenc e from total protein >8.8 g/dL. Total protein values from 9.0 to 12.0 g/dL decrease Troponin values at 500 ng/L by up to -16.3%. Although designed to minimize the effects of HAMA, heterophili c antibodies, and RF, the assay results may be impacted in a falsely negative way by these proteins. A High-Sensit ivity Troponin I information resource can be reached [...] decrease <15 G5 Kidney failure Ordering Provider: SUAD COLE Report Released Date/Time: Aug 29, 2024 07:55 PM Reporting Lab: [facility] [address] [address] Performing Lab: [facility] [place] [address] [address] [facility] PANEL 5 GLUCOSE [MASS/VOLU ME] IN SERUM OR PLASMA 111 mg/dL 74 - 100 08/29 H Specimen Type: PLASMA Comment: Reference Ranges Females: 4 - 14 ng/L Males: 4 - 35 ng/L Limit of Quantitatio n: 4 ng/L Significant High-Sensit ivity Troponin I Delta at 2 hours, either rising or falling: >10 ng/L. Once baseline and 2-hour High-Sensit ivity Troponin I results are available, the Provider ordering the tests will calculate the HS-Troponin I Delta, the difference between the two values. High-Tropon in I values greater than the 99th percentile [...] elevated values. This assay is susceptible to interferenc e from total protein >8.8 g/dL. Total protein values from 9.0 to 12.0 g/dL decrease Troponin values at 500 ng/L by up to -16.3%. Although designed to minimize the effects of HAMA, heterophili c antibodies, and RF, the assay results may be impacted in a falsely negative way by these proteins. A High-Sensit ivity Troponin I information resource can be reached in [facility] in the Tools menu, under the [...] decrease <15 G5 Kidney failure Ordering Provider: SUAD COLE Report Released Date/Time: Aug 29, 2024 07:55 PM Reporting Lab: [place] [address] [address] Performing Lab: [facility] [address] [address] [facility] PANEL 5 SODIUM [MOLES/VOL UME] IN SERUM OR PLASMA 129 mmol/L 136 - 145 08/29 L Specimen Type: PLASMA Comment: Reference Ranges Females: 4 - 14 ng/L Males: 4 - 35 ng/L Limit of Quantitatio n: 4 ng/L Significant High-Sensit ivity Troponin I Delta at 2 hours, either rising or falling: >10 ng/L. Once baseline and 2-hour High-Sensit ivity Troponin I results are available, the Provider ordering the tests will calculate the HS-Troponin I Delta, the difference between the two values. High-Tropon in I values greater than the 99th percentile [...] elevated values. This assay is susceptible to interferenc e from total protein >8.8 g/dL. Total protein values from 9.0 to 12.0 g/dL decrease Troponin values at 500 ng/L by up to -16.3%. Although designed to minimize the effects of HAMA, heterophili c antibodies, and RF, the assay results may be impacted in a falsely negative way by these proteins. A High-Sensit ivity Troponin I information resource can be reached in [facility] in the Tools menu, under the [...] decrease <15 G5 Kidney failure Ordering Provider: SUAD COLE Report Released Date/Time: Aug 29, 2024 07:55 PM Reporting Lab: SHIRA MORGAN [address] [address] Performing Lab: SHIRA MORGAN [address] [address] [facility] PANEL 5 POTASSIUM [MOLES/VOL UME] IN SERUM OR PLASMA 4.5 mmol/L 3.5 - 5.1 08/29 Specimen Type: PLASMA Comment: Reference Ranges Females: 4 - 14 ng/L Males: 4 - 35 ng/L Limit of Quantitatio n: 4 ng/L Significant High-Sensit ivity Troponin I Delta at 2 hours, either rising or falling: >10 ng/L. Once baseline and 2-hour High-Sensit ivity Troponin I results are available, the Provider ordering the tests will calculate the HS-Troponin I Delta, the difference between the two values. High-Tropon in I values greater than the 99th percentile [...] elevated values. This assay is susceptible to interferenc e from total protein >8.8 g/dL. Total protein values from 9.0 to 12.0 g/dL decrease Troponin values at 500 ng/L by up to -16.3%. Although designed to minimize the effects of HAMA, heterophili c antibodies, and RF, the assay results may be impacted in a falsely negative way by these proteins. A High-Sensit ivity Troponin I information resource can be reached [...] decrease <15 G5 Kidney failure Ordering Provider: SUAD COLE Report Released Date/Time: Aug 29, 2024 07:55 PM Reporting Lab: [facility] [address] [facility] [address] Performing Lab: SHIRA MORGAN [facility] [address] [facility] [address] [facility] PANEL 5 CHLORIDE [MOLES/VOL UME] IN SERUM OR PLASMA 99 mmol/L 98 - 107 08/29 Specimen Type: PLASMA Comment: Reference Ranges Females: 4 - 14 ng/L Males: 4 - 35 ng/L Limit of Quantitatio n: 4 ng/L Significant High-Sensit ivity Troponin I Delta at 2 hours, either rising or falling: >10 ng/L. Once baseline and 2-hour High-Sensit ivity Troponin I results are available, the Provider ordering the tests will calculate the HS-Troponin I Delta, the difference between the two values. High-Tropon in I values greater than the 99th percentile [...] elevated values. This assay is susceptible to interferenc e from total protein >8.8 g/dL. Total protein values from 9.0 to 12.0 g/dL decrease Troponin values at 500 ng/L by up to -16.3%. Although designed to minimize the effects of HAMA, heterophili c antibodies, and RF, the assay results may be impacted in a falsely negative way by these proteins. A High-Sensit ivity Troponin I information resource can be reached [...] decrease <15 G5 Kidney failure Ordering Provider: SUAD COLE Report Released Date/Time: Aug 29, 2024 07:55 PM Reporting Lab: SHIRA MORGAN [address] [address] Performing Lab: SHIRA MORGAN [address] [address] [facility] PANEL 5 CARBON DIOXIDE, TOTAL [MOLES/VOL UME] IN SERUM OR PLASMA 23 mmol/L 22 - 29 08/29 Specimen Type: PLASMA Comment: Reference Ranges Females: 4 - 14 ng/L Males: 4 - 35 ng/L Limit of Quantitatio n: 4 ng/L Significant High-Sensit ivity Troponin I Delta at 2 hours, either rising or falling: >10 ng/L. Once baseline and 2-hour High-Sensit ivity Troponin I results are available, the Provider ordering the tests will calculate the HS-Troponin I Delta, the difference between the two values. High-Tropon in I values greater than the 99th percentile [...] elevated values. This assay is susceptible to interferenc e from total protein >8.8 g/dL. Total protein values from 9.0 to 12.0 g/dL decrease Troponin values at 500 ng/L by up to -16.3%. Although designed to minimize the effects of HAMA, heterophili c antibodies, and RF, the assay results may be impacted in a falsely negative way by these proteins. A High-Sensit ivity Troponin I information resource can be reached [...] decrease <15 G5 Kidney failure Ordering Provider: SUAD COLE Report Released Date/Time: Aug 29, 2024 07:55 PM Reporting Lab: SHIRA MORGAN [address] [address] Performing Lab: SHIRA MORGAN [address] [address] [facility] PANEL 5 CALCIUM [MASS/VOLU ME] IN SERUM OR PLASMA 8.6 mg/dL 8.4 - 10.2 08/29 Specimen Type: PLASMA Comment: Reference Ranges Females: 4 - 14 ng/L Males: 4 - 35 ng/L Limit of Quantitatio n: 4 ng/L Significant High-Sensit ivity Troponin I Delta at 2 hours, either rising or falling: >10 ng/L. Once baseline and 2-hour High-Sensit ivity Troponin I results are available, the Provider ordering the tests will calculate the HS-Troponin I Delta, the difference between the two values. High-Tropon in I values greater than the 99th percentile [...] elevated values. This assay is susceptible to interferenc e from total protein >8.8 g/dL. Total protein values from 9.0 to 12.0 g/dL decrease Troponin values at 500 ng/L by up to -16.3%. Although designed to minimize the effects of HAMA, heterophili c antibodies, and RF, the assay results may be impacted in a falsely negative way by these proteins. A High-Sensit ivity Troponin I information resource can be reached in [facility] in the Tools menu, under the [...] decrease <15 G5 Kidney failure Ordering Provider: SUAD COLE Report Released Date/Time: Aug 29, 2024 07:55 PM Reporting Lab: SHIRA MORGAN [facility] [address] [facility] [address] Performing Lab: SHIRA MORGAN [facility] [address] [facility] [address] [facility] PANEL 5 PROTEIN [MASS/VOLU ME] IN SERUM OR PLASMA 5.9 g/dL 6.4 - 8.3 08/29 L Specimen Type: PLASMA Comment: Reference Ranges Females: 4 - 14 ng/L Males: 4 - 35 ng/L Limit of Quantitatio n: 4 ng/L Significant High-Sensit ivity Troponin I Delta at 2 hours, either rising or falling: >10 ng/L. Once baseline and 2-hour High-Sensit ivity Troponin I results are available, the Provider ordering the tests will calculate the HS-Troponin I Delta, the difference between the two values. High-Tropon in I values greater than the 99th percentile [...] elevated values. This assay is susceptible to interferenc e from total protein >8.8 g/dL. Total protein values from 9.0 to 12.0 g/dL decrease Troponin values at 500 ng/L by up to -16.3%. Although designed to minimize the effects of HAMA, heterophili c antibodies, and RF, the assay results may be impacted in a falsely negative way by these proteins. A High-Sensit ivity Troponin I information resource can be reached [...] decrease <15 G5 Kidney failure Ordering Provider: SUAD COLE Report Released Date/Time: Aug 29, 2024 07:55 PM Reporting Lab: SHIRA MORGAN [address] [address] Performing Lab: SHIRA MORGAN [address] [address] ELICIA DOHERTY [facility] PANEL 5 ALBUMIN [MASS/VOLU ME] IN SERUM OR PLASMA 2.9 g/dL 3.5 - 5.2 08/29 L Specimen Type: PLASMA Comment: Reference Ranges Females: 4 - 14 ng/L Males: 4 - 35 ng/L Limit of Quantitatio n: 4 ng/L Significant High-Sensit ivity Troponin I Delta at 2 hours, either rising or falling: >10 ng/L. Once baseline and 2-hour High-Sensit ivity Troponin I results are available, the Provider ordering the tests will calculate the HS-Troponin I Delta, the difference between the two values. High-Tropon in I values greater than the 99th percentile [...] elevated values. This assay is susceptible to interferenc e from total protein >8.8 g/dL. Total protein values from 9.0 to 12.0 g/dL decrease Troponin values at 500 ng/L by up to -16.3%. Although designed to minimize the effects of HAMA, heterophili c antibodies, and RF, the assay results may be impacted in a falsely negative way by these proteins. A High-Sensit ivity Troponin I information resource can be reached [...] decrease <15 G5 Kidney failure Ordering Provider: SUAD COLE Report Released Date/Time: Aug 29, 2024 07:55 PM Reporting Lab: SHIRA MORGAN [address] [address] Performing Lab: SHIRA MORGAN [address] [address] ELICIA DOHERTY [facility] PANEL 5 BILIRUBIN. TOTAL [MASS/VOLU ME] IN SERUM OR PLASMA 1.4 mg/dL 0.2 - 1.2 08/29 H Specimen Type: PLASMA Comment: Reference Ranges Females: 4 - 14 ng/L Males: 4 - 35 ng/L Limit of Quantitatio n: 4 ng/L Significant High-Sensit ivity Troponin I Delta at 2 hours, either rising or falling: >10 ng/L. Once baseline and 2-hour High-Sensit ivity Troponin I results are available, the Provider ordering the tests will calculate the HS-Troponin I Delta, the difference between the two values. High-Tropon in I values greater than the 99th percentile [...] elevated values. This assay is susceptible to interferenc e from total protein >8.8 g/dL. Total protein values from 9.0 to 12.0 g/dL decrease Troponin values at 500 ng/L by up to -16.3%. Although designed to minimize the effects of HAMA, heterophili c antibodies, and RF, the assay results may be impacted in a falsely negative way by these proteins. A High-Sensit ivity Troponin I information resource can be reached in [facility] in the Tools menu, under the [...] decrease <15 G5 Kidney failure Ordering Provider: SUAD COLE Report Released Date/Time: Aug 29, 2024 07:55 PM Reporting Lab: ELICIA-Shira [address] [address] Performing Lab: ELICIA-Shira [facility] [address] [facility] [address] [facility] PANEL 5 ASPARTATE AMINOTRANS FERASE [ENZYMATIC ACTIVITY/V OLUME] IN SERUM OR PLASMA 11 U/L 5 - 34 08/29 Specimen Type: PLASMA Comment: Reference Ranges Females: 4 - 14 ng/L Males: 4 - 35 ng/L Limit of Quantitatio n: 4 ng/L Significant High-Sensit ivity Troponin I Delta at 2 hours, either rising or falling: >10 ng/L. Once baseline and 2-hour High-Sensit ivity Troponin I results are available, the Provider ordering the tests will calculate the HS-Troponin I Delta, the difference between the two values. High-Tropon in I values greater than the 99th percentile [...] elevated values. This assay is susceptible to interferenc e from total protein >8.8 g/dL. Total protein values from 9.0 to 12.0 g/dL decrease Troponin values at 500 ng/L by up to -16.3%. Although designed to minimize the effects of HAMA, heterophili c antibodies, and RF, the assay results may be impacted in a falsely negative way by these proteins. A High-Sensit ivity Troponin I information resource can be reached [...] decrease <15 G5 Kidney failure Ordering Provider: SUAD COLE Report Released Date/Time: Aug 29, 2024 07:55 PM Reporting Lab: SHIRA MORGAN [address] [address] Performing Lab: SHIRA MORGAN [address] [address] ELICIA DOHERTY [facility] PANEL 5 ALANINE AMINOTRANS FERASE [ENZYMATIC ACTIVITY/V OLUME] IN SERUM OR PLASMA 15 U/L 0 - 55 08/29 Specimen Type: PLASMA Comment: Reference Ranges Females: 4 - 14 ng/L Males: 4 - 35 ng/L Limit of Quantitatio n: 4 ng/L Significant High-Sensit ivity Troponin I Delta at 2 hours, either rising or falling: >10 ng/L. Once baseline and 2-hour High-Sensit ivity Troponin I results are available, the Provider ordering the tests will calculate the HS-Troponin I Delta, the difference between the two values. High-Tropon in I values greater than the 99th percentile [...] elevated values. This assay is susceptible to interferenc e from total protein >8.8 g/dL. Total protein values from 9.0 to 12.0 g/dL decrease Troponin values at 500 ng/L by up to -16.3%. Although designed to minimize the effects of HAMA, heterophili c antibodies, and RF, the assay results may be impacted in a falsely negative way by these proteins. A High-Sensit ivity Troponin I information resource can be reached [...] decrease <15 G5 Kidney failure Ordering Provider: SUAD COLE Report Released Date/Time: Aug 29, 2024 07:55 PM Reporting Lab: SHIRA MORGAN [address] [address] Performing Lab: SHIRA MORGAN [address] [address] [facility] PANEL 5 ANION GAP 3 IN SERUM OR PLASMA 7 meq/L 3 - 19 08/29 Specimen Type: PLASMA Comment: Reference Ranges Females: 4 - 14 ng/L Males: 4 - 35 ng/L Limit of Quantitatio n: 4 ng/L Significant High-Sensit ivity Troponin I Delta at 2 hours, either rising or falling: >10 ng/L. Once baseline and 2-hour High-Sensit ivity Troponin I results are available, the Provider ordering the tests will calculate the HS-Troponin I Delta, the difference between the two values. High-Tropon in I values greater than the 99th percentile [...] elevated values. This assay is susceptible to interferenc e from total protein >8.8 g/dL. Total protein values from 9.0 to 12.0 g/dL decrease Troponin values at 500 ng/L by up to -16.3%. Although designed to minimize the effects of HAMA, heterophili c antibodies, and RF, the assay results may be impacted in a falsely negative way by these proteins. A High-Sensit ivTex[employer]ing Troponin I information resource can be reached in [facility] in the Tools menu, under the [...] decrease <15 G5 Kidney failure Ordering Provider: SUAD COLE Report Released Date/Time: Aug 29, 2024 07:55 PM Reporting Lab: ELICIAShira [address] [address] Performing Lab: ELICIAShira [address] [address] [facility] PANEL 5 ALKALINE PHOSPHATAS E [ENZYMATIC ACTIVITY/V OLUME] IN SERUM OR PLASMA 97 U/L 40 - 150 08/29 Specimen Type: PLASMA Comment: Reference Ranges Females: 4 - 14 ng/L Males: 4 - 35 ng/L Limit of Quantitatio n: 4 ng/L Significant High-Sensit ivity Troponin I Delta at 2 hours, either rising or falling: >10 ng/L. Once baseline and 2-hour High-Sensit ivity Troponin I results are available, the Provider ordering the tests will calculate the HS-Troponin I Delta, the difference between the two values. High-Tropon in I values greater than the 99th percentile [...] elevated values. This assay is susceptible to interferenc e from total protein >8.8 g/dL. Total protein values from 9.0 to 12.0 g/dL decrease Troponin values at 500 ng/L by up to -16.3%. Although designed to minimize the effects of HAMA, heterophili c antibodies, and RF, the assay results may be impacted in a falsely negative way by these proteins. A High-Sensit ivity Troponin I information resource can be reached [...] decrease <15 G5 Kidney failure Ordering Provider: SUAD COLE Report Released Date/Time: Aug 29, 2024 07:55 PM Reporting Lab: SHIRA MORGAN [facility] [address] [facility] [address] Performing Lab: SHIRA MORGAN [facility] [address] [facility] [address] ELICIA -MALKA [facility] PANEL 5 GLOMERULAR FILTRATION RATE/1.73 SQ M.PREDICTE D [VOLUME RATE/AREA] IN SERUM, PLASMA OR BLOOD BY CREATININE -BASED FORMULA (CKD-EPI 2020) 89 08/29 Specimen Type: PLASMA Comment: Reference Ranges Females: 4 - 14 ng/L Males: 4 - 35 ng/L Limit of Quantitatio n: 4 ng/L Significant High-Sensit ivity Troponin I Delta at 2 hours, either rising or falling: >10 ng/L. Once baseline and 2-hour High-Sensit ivity Troponin I results are available, the Provider ordering the tests will calculate the HS-Troponin I Delta, the difference between the two values. High-Tropon in I values greater than the 99th percentile [...] elevated values. This assay is susceptible to interferenc e from total protein >8.8 g/dL. Total protein values from 9.0 to 12.0 g/dL decrease Troponin values at 500 ng/L by up to -16.3%. Although designed to minimize the effects of HAMA, heterophili c antibodies, and RF, the assay results may be impacted in a falsely negative way by these proteins. A High-Sensit ivity Troponin I information resource can be reached [...] decrease <15 G5 Kidney failure Ordering Provider: SUAD COLE Report Released Date/Time: Aug 29, 2024 07:55 PM Reporting Lab: ELICIA-Shira MORGAN [address] [address] Performing Lab: ELICIA-Shira [address] [address] [facility] IRON/TIB C IRON [MOLES/VOL UME] IN SERUM OR PLASMA 53 ug/dL 65 - 175 05/25 L Specimen Type: PLASMA No comment entered. Ordering Provider: EZE HENDERSON Report Released Date/Time: Apr 22, 2024 08:13 AM Reporting Lab: ELICIA-Shira [address] [address] Performing Lab: [address]ICIA[address] [address] [facility] IRON/TIB C IRON BINDING CAPACITY [MASS/VOLU ME] IN SERUM OR PLASMA 233 mg/dL 250 - 425 05/25 L Specimen Type: PLASMA No comment entered. Ordering Provider: EZE HENDERSON Report Released Date/Time: Apr 22, 2024 08:13 AM Reporting Lab: [place] [phone] Performing Lab: [place] [phone] [facility] IRON/TIB C IRON SATURATION [MOLAR FRACTION] IN SERUM OR PLASMA 23 20 - 50 05/25 Specimen Type: PLASMA No comment entered. Ordering Provider: EZE HENDERSON Report Released Date/Time: Apr 22, 2024 08:13 AM Reporting Lab: [address] [address] Performing Lab: [place] [phone] [facility] FERRITIN FERRITIN [MASS/VOLU ME] IN SERUM OR PLASMA 141.1 ng/mL 21.8 - 274.7 05/25 Specimen Type: PLASMA No comment entered. Ordering Provider: EZE HENDERSON Report Released Date/Time: Apr 22, 2024 08:13 AM Reporting Lab: [address] [address] Performing Lab: [place] [id number] [facility] CBC/PLT LEUKOCYTES [#/VOLUME] IN BLOOD BY AUTOMATED COUNT 9.6 10*3/uL 5.0 - 10.0 05/25 Specimen Type: BLOOD No comment entered. Ordering Provider: EZE HENDERSON Report Released Date/Time: Apr 22, 2024 08:13 AM Reporting Lab: [address] [address] Performing Lab: [address] [address] [facility] CBC/PLT ERYTHROCYT ES [#/VOLUME] IN BLOOD BY AUTOMATED COUNT 4.00 10*6/uL 4.6 - 6.2 05/25 L Specimen Type: BLOOD No comment entered. Ordering Provider: EZE HENDERSON Report Released Date/Time: Apr 22, 2024 08:13 AM Reporting Lab: [place] [address] Performing Lab: [address] CBC/PLT HEMOGLOBIN [MASS/VOLU ME] IN BLOOD 11.3 g/dL 14.0 - 18.0 05/25 L Specimen Type: BLOOD No comment entered. Ordering Provider: EZE HENDERSON Report Released Date/Time: Apr 22, 2024 08:13 AM Reporting Lab: [place] [address] Performing Lab: [address] CBC/PLT HEMATOCRIT [VOLUME FRACTION] OF BLOOD BY AUTOMATED COUNT 35.0 42.0 - 52.0 05/25 L Specimen Type: BLOOD No comment entered. Ordering Provider: EZE HENDERSON Report Released Date/Time: Apr 22, 2024 08:13 AM Reporting Lab: [place] [address] Performing Lab: [address] CBC/PLT MCV [ENTITIC VOLUME] BY AUTOMATED COUNT 87.5 fL 80.0 - 94.0 05/25 Specimen Type: BLOOD No comment entered. Ordering Provider: EZE HENDERSON Report Released Date/Time: Apr 22, 2024 08:13 AM Reporting Lab: [place] [phone] Performing Lab: [address] CBC/PLT MCH [ENTITIC MASS] BY AUTOMATED COUNT 28.3 pg 27.0 - 31.0 05/25 Specimen Type: BLOOD No comment entered. Ordering Provider: EZE HENDERSON Report Released Date/Time: Apr 22, 2024 08:13 AM Reporting Lab: [address] [address] Performing Lab: [place] [phone] [place] [address] CBC/PLT MCHC [MASS/VOLU ME] BY AUTOMATED COUNT 32.3 g/dL 32.0 - 36.0 05/25 Specimen Type: BLOOD No comment entered. Ordering Provider: EZE HENDERSON Report Released Date/Time: Apr 22, 2024 08:13 AM Reporting Lab: [address] [address] Performing Lab: [place] [phone] [facility] CBC/PLT PLATELETS [#/VOLUME] IN BLOOD 232 10*3/uL 150 - 450 05/25 Specimen Type: BLOOD No comment entered. Ordering Provider: EZE HENDERSON Report Released Date/Time: Apr 22, 2024 08:13 AM Reporting Lab: [place] [phone] Performing Lab: [place] [phone] [facility] CBC/PLT PLATELET MEAN VOLUME [ENTITIC VOLUME] IN BLOOD 11.0 fL 9.0 - 13.1 05/25 Specimen Type: BLOOD No comment entered. Ordering Provider: EZE HENDERSON Report Released Date/Time: Apr 22, 2024 08:13 AM Reporting Lab: [address] [address] Performing Lab: [address] [address] [facility] CBC/PLT ERYTHROCYT E DISTRIBUTI ON WIDTH [ENTITIC VOLUME] BY AUTOMATED COUNT 15.4 11.0 - 16.0 05/25 Specimen Type: BLOOD No comment entered. Ordering Provider: EZE HENDERSON Report Released Date/Time: Apr 22, 2024 08:13 AM Reporting Lab: [address] [address] Performing Lab: [address] [place] [address] [facility] CBC/PLT NUCLEATED ERYTHROCYT ES/100 ERYTHROCYT ES IN BLOOD 0.0 0.0 - 0.0 05/25 Specimen Type: BLOOD No comment entered. Ordering Provider: EZE HENDERSON Report Released Date/Time: Apr 22, 2024 08:13 AM Reporting Lab: [address] [address] Performing Lab: [address] [address] [facility] DRUG SCREEN EXPANDED IN-HOUSE TETRAHYDRO CANNABINOL [PRESENCE] IN URINE NEG Cutoff < 50 [...] Feb 06, 2024 03:45 PM Reporting Lab: [address] [address] Performing Lab: [address] [address] [facility] DRUG SCREEN EXPANDED IN-HOUSE AMPHETAMIN ES [PRESENCE] IN URINE NEG Cutoff < 1000 [...] Feb 06, 2024 03:45 PM Reporting Lab: [address] [address] Performing Lab: [address] [address] [facility] DRUG SCREEN EXPANDED IN-HOUSE BARBITURAT ES [PRESENCE] IN URINE BY SCREEN METHOD NEG [...] Feb 06, 2024 03:45 PM Reporting Lab: [address] [address] Performing Lab: [address] [address] [facility] DRUG SCREEN EXPANDED IN-HOUSE BENZODIAZE PINES [PRESENCE] IN URINE BY SCREEN METHOD NEG [...] Feb 06, 2024 03:45 PM Reporting Lab: [address] [address] Performing Lab: [address] [address] [facility] DRUG SCREEN EXPANDED IN-HOUSE BENZOYLECG ONINE [PRESENCE] IN URINE NEG Cutoff < 300 [...] Feb 06, 2024 03:45 PM Reporting Lab: [address] [address] Performing Lab: [address] [address] [facility] DRUG SCREEN EXPANDED IN-HOUSE OPIATES [PRESENCE] [...] Feb 06, 2024 03:45 PM Reporting Lab: [address] [address] Performing Lab: [address] [address] [facility] DRUG SCREEN EXPANDED IN-HOUSE METHADONE [PRESENCE] [...] Feb 06, 2024 03:45 PM Reporting Lab: [address] [address] Performing Lab: [address] [address] [facility] DRUG SCREEN EXPANDED IN-HOUSE OXYCODONE [PRESENCE] [...] Feb 06, 2024 03:45 PM Reporting Lab: [address] [address] Performing Lab: [address] [address] [facility] DRUG SCREEN EXPANDED IN-HOUSE BUPRENORPH INE+NORBUP RENORPHINE [PRESENCE] IN URINE NEG Cutoff < 5 [...] Feb 06, 2024 03:45 PM Reporting Lab: [address] [address] Performing Lab: [address] [address] [facility] DRUG SCREEN EXPANDED IN-HOUSE FENTANYL SCREEN [...] Feb 06, 2024 03:45 PM Reporting Lab: [address] Performing Lab: [place] [phone] [facility] MICROALB UMIN/CRE AT RATIO CREATININE [MASS/VOLU ME] IN URINE 102.7 mg/dL 02/16 Specimen Type: URINE Comment: Unable to calculate ratio due to low Microalbumi n result. Ordering Provider: BUCK HUNT Report Released Date/Time: Feb 06, 2024 03:45 PM Reporting Lab: [place] [phone] Performing Lab: [place] [phone] [facility] MICROALB UMIN/CRE AT RATIO MICROALBUM IN [MASS/VOLU ME] IN URINE <5.0mg/L 0.0 - 30.0 02/16 Specimen Type: URINE Comment: Unable to calculate ratio due to low Microalbumi n result. Ordering Provider: BUCK HUNT Report Released Date/Time: Feb 06, 2024 03:45 PM Reporting Lab: [place] [phone] Performing Lab: [place] [phone] [facility] MICROALB UMIN/CRE AT RATIO MICROALBUM IN/CREATIN INE [MASS RATIO] IN URINE commentu g/mg{cre at} 02/16 Specimen Type: URINE Comment: Unable to calculate ratio due to low Microalbumi n result. Ordering Provider: BUCK HUNT Report Released Date/Time: Feb 06, 2024 03:45 PM Reporting Lab: SHIRA CATHY [facility] [address] [facility] [address] Performing Lab: SHIRA MORGAN [facility] [address] [facility] [address] [facility] PANEL 1 CREATININE [MASS/VOLU ME] IN SERUM OR PLASMA 0.87 mg/dL 0.72 [...] Feb 06, 2024 03:45 PM Reporting Lab: BRENDONShira MORGAN [facility] [address] [facility] [address] Performing Lab: SHIRA MORGAN [facility] [address] [facility] [address] [facility] PANEL 1 UREA NITROGEN [MASS/VOLU ME] IN SERUM OR PLASMA 13 mg/dL 02/16 [...] Feb 06, 2024 03:45 PM Reporting Lab: [facility] [address] [place] [address] Performing Lab: [facility] [address] [place] [address] [facility] PANEL 1 GLUCOSE [MASS/VOLU ME] IN SERUM OR PLASMA 119 mg/dL 74 [...] 2024 03:45 PM Reporting Lab: SHIRA MORGAN [address] [address] Performing Lab: SHIRA MORGAN [address] [address] [facility] PANEL 1 SODIUM [MOLES/VOL UME] IN SERUM OR PLASMA 133 mmol/L 136 [...] 2024 03:45 PM Reporting Lab: SHIRA MORGAN [address] [address] Performing Lab: [address] [address] [facility] PANEL 1 POTASSIUM [MOLES/VOL UME] IN SERUM OR PLASMA 4.4 mmol/L 3.5 [...] 2024 03:45 PM Reporting Lab: SHIRA MORGAN [address] [address] Performing Lab: SHIRA MORGAN [address] [address] [facility] PANEL 1 CHLORIDE [MOLES/VOL UME] IN SERUM OR PLASMA 100 mmol/L 98 [...] 2024 03:45 PM Reporting Lab: SHIRA MORGAN [address] [address] Performing Lab: SHIRA MORGAN [address] [address] [facility] PANEL 1 CARBON DIOXIDE, TOTAL [MOLES/VOL UME] IN SERUM OR PLASMA 23 mmol/L 22 - 29 02/16 Specimen Type: PLASMA Comment: Estimated Glomerular [...] 2024 03:45 PM Reporting Lab: SHIRA MORGAN [address] [address] Performing Lab: SHIRA [address] [address] [facility] PANEL 1 CALCIUM [MASS/VOLU ME] IN SERUM OR PLASMA 9.0 mg/dL 8.4 [...] 2024 03:45 PM Reporting Lab: SHIRA MORGAN [address] [address] Performing Lab: SHIRA MORGAN [address] [address] [facility] PANEL 1 ANION GAP 3 IN [...] 2024 03:45 PM Reporting Lab: SHIRA MORGAN [address] [address] Performing Lab: SHIRA MORGAN [address] [address] [facility] PANEL 1 GLOMERULAR FILTRATION RATE/1.73 SQ M.PREDICTE D [VOLUME RATE/AREA] IN SERUM, PLASMA OR BLOOD BY CREATININE -BASED FORMULA (CKD-EPI 2020) 88 02/16 Specimen Type: [...] 2024 03:45 PM Reporting Lab: SHIRA MORGAN [address] [address] Performing Lab: SHIRA MORGAN [address] [address] [facility] Vital Signs Combined list of inpatient and outpatient Vital Signs from Department of Defense and Veterans Affairs, ranging from 12 months to all on record, depending upon the facility. Vital Sign Value Date Comments Source SYSTOLIC BLOOD PRESSURE 174 08/29/2024 19:54:54 [facility] DIASTOLIC BLOOD PRESSURE 79 08/29/2024 19:54:54 [facility] PULSE OXIMETRY 92 08/29/2024 19:54:54 [place] [facility] PAIN 5 08/29/2024 19:54:54 [place] [facility] TEMPERATURE 99.4 08/29/2024 19:54:54 [place] [facility] PULSE 85 08/29/2024 19:54:54 [place] [facility] RESPIRATION 16 08/29/2024 19:54:54 [place] [facility] SYSTOLIC BLOOD PRESSURE 112 07/09/2024 10:20:00 [place] [facility] DIASTOLIC BLOOD PRESSURE 64 07/09/2024 10:20:00 [place] [facility] PAIN 0 07/09/2024 10:20:00 [place] [facility] TEMPERATURE 97.2 07/09/2024 10:20:00 [place] [facility] PULSE 67 07/09/2024 10:20:00 [place] [facility] RESPIRATION 16 07/09/2024 10:20:00 [place] [facility] SYSTOLIC BLOOD PRESSURE 126 04/21/2024 11:45:00 [place] [facility] DIASTOLIC BLOOD PRESSURE 64 04/21/2024 11:45:00 [place] [facility] TEMPERATURE 98.4 04/21/2024 11:45:00 [place] [facility] PULSE 60 04/21/2024 11:45:00 [place] [facility] RESPIRATION 16 04/21/2024 11:45:00 [place] [facility] SYSTOLIC BLOOD PRESSURE 140 03/04/2024 11:00:00 [place] [facility] DIASTOLIC BLOOD PRESSURE 76 03/04/2024 11:00:00 [place] [facility] WEIGHT 251 03/04/2024 11:00:00 [place] [facility] BMI 37 kg/m2 03/04/2024 11:00:00 [place] ZUNIGA [facility] PAIN 0 03/04/2024 11:00:00 [place] ZUNIGA [facility] TEMPERATURE 97.4 03/04/2024 11:00:00 [place] [facility] PULSE 66 03/04/2024 11:00:00 AM[place] ZUNIGA [facility] RESPIRATION 14 03/04/2024 11:00:00 [place] [facility] SYSTOLIC BLOOD PRESSURE 148 02/06/2024 09:58:24 [place] [facility] DIASTOLIC BLOOD PRESSURE 79 02/06/2024 09:58:24 [place] [facility] PULSE OXIMETRY 96 02/06/2024 09:58:24 L [place] [facility] WEIGHT 251 02/06/2024 09:58:24 AM[place] ZUNIGA [facility] BMI 37 kg/m2 02/06/2024 09:58:24 [place] [facility] PAIN 0 02/06/2024 09:58:24 [place] [facility] HEIGHT 69 02/06/2024 09:58:24 [place] [facility]UNIGA [facility] TEMPERATURE 97.2 02/06/2024 09:58:24 [place] [facility] PULSE 66 02/06/2024 09:58:24 AMANDA ZUNIGA [facility] RESPIRATION 12 02/06/2024 09:58:24 [place] CE[place] [facility] Encounters Combined list of: 1) Encounters from Department of Veterans Affairs facilities going backup to the last 18 months, not all [place] inpatient encounters are included; 2) Encounters from the Department of Defense facilities going backup to 280 months. Location Location Details Encounter Type Encounter Number Reason For Visit Attending Provider ADM Date DC Date Status Disposition Source [facility] Outpatient Encounter [id number] [facility] En[facility] [id number] 01[place]04 [place] [facility] Outpatient Encounter [id number] 09 01/10 [place] Outpatient Encounter [id number] 01/11 [place] Outpatient Encounter [id number] 01/12 [place] [facility] Outpatient Encounter [id number] 01/15 [place] Outpatient Encounter [id number] 01/20 [place] [facility] OFF[facility] [place] 60 MIN [id number] Diagnos is: ICD-10- CM G35 Multipl e scleros is BUCK HUNT 02/05 [place] [facility] ASSMT/REAS SESSMENT [id number] Diagnos is: ICD-10- CM Z65.9 Problem related to unspeci fied psychos ocial circums CATALINA Alegria 02/05 [place] [facility] Outpatient Encounter [id number] 02/05 [place] Outpatient Encounter [id number] Diagnos is: ICD-10- CM G35 Multipl e scleros is HARSH BURTON 02/05 [place] HC PRO PHONE CALL 11-20 MIN [id number] Diagnos is: ICD-10- CM Z71.2 Person consult ing for explana tion of exam or test finding VALARIE Castillo 02/09 [place] [facility] Outpatient Encounter [id number] 21 02/22 [place] Outpatient Encounter [id number] 03/04 [place] [facility] Outpatient Encounter [id number] Diagnos is: ICD-10- CM S82.401 A Unsp fractur e of shaft of right fibula, init for clos fx BEATRIZ,VIR GINIA K 03/04 [place] HHS/HOSPIC E OF RN EA 15 MIN [id number] Diagnos is: ICD-10- CM G35 Multipl e scleros is Stephen ALCOCER 03/04 [place] HLTH BHV ASSMT/REAS SESSMENT [id number] Diagnos is: ICD-10- CM Z65.9 Problem related to unspeci fied psychos ocial circums PADMINI Lundy 03/08 [place] Outpatient Encounter [id number] FRANCK WATT TTA R 03/10 [place] [facility] [place] [id number] Diagnos is: ICD-10- CM E66.09 Other obesity due to excess calorie KAREN Rodrigues C 03/10 [place] HC PRO PHONE CALL 5-10 MIN [id number] Diagnos is: ICD-10- CM Z75.5 Holiday relief care FRANCK WATT TTA R 03/11 [place] [facility] Outpatient Encounter [id number] Diagnos is: ICD-10- CM S82.401 A Unsp fractur e of shaft of right fibula, init for clos fx CHASE HENDERSON 03/11 [place] HHCP-SERV OF PT,EA 15 MIN [id number] Diagnos is: ICD-10- CM G35 Multipl e scleros is Dianne HUFFMAN A 03/19 [place] QNHP OL DIG ASSMT&MGMT 21+ [id number] Diagnos is: ICD-10- CM Z79.899 Other snf (curren t) drug therapy SATINDER SHOOK 03/19 [place] Outpatient Encounter [id number] 03/23 [place] [facility] PH1 ASSMT&MGMT NQHP 5-10 [id number] Diagnos is: ICD-10- CM G35 Multipl e scleros is Stephen ALCOCER DITH F 03/29 [place] Outpatient Encounter [id number] 03/29 [place] Outpatient Encounter [id number] 04/16 [place] [facility] HHS/HOSPIC E OF RN EA 15 MIN [id number] Diagnos is: ICD-10- CM G35 Multipl e scleros is Stephen ALCOCER DITH F 04/21 [place] Outpatient Encounter [id number] 05/03 [place] [facility] Outpatient Encounter [id number] 05/04 [place] PH1 ASSMT&MGMT NQHP 5-10 [id number] Diagnos is: ICD-10- CM M25.561 Pain in right knee Stephen ALCOCER DITH F 05/04 [place] PH1 ASSMT&MGMT NQHP 5-10 [id number] Diagnos is: ICD-10- CM G35 Multipl e scleros is Stephen ALCOCER DITH F 05/12 [place] D[facility] ASSMT&MGMT 11-20 [id number] Diagnos is: ICD-10- CM Z79.899 Other snf (curren t) drug therapy SATINDER SHOOK I L 05/18 [place] Outpatient Encounter [id number] 05/25 [place] Outpatient Encounter [id number] Diagnos is: ICD-10- CM K21.9 Gastro- esophag eal reflux disease without esophag itis TATA MALLORY SSA 05/25 [place] [facility] [place] [id number] Diagnos is: ICD-10- CM I10 Essenti al (primar y) hyperte nsion Stephen ALCOCER DITH F 05/25 [place] Outpatient Encounter [id number] 05/27 [place] Outpatient Encounter [id number] 06/04 [place] [facility] IVNTJ INDIV 30 [id number] Diagnos is: ICD-10- CM Z65.9 Problem related to unspeci fied psychos ocial circums ovidio HILL,CO NNIE D 06/07 [place] PH1 ASSMT&MGMT NQHP 11-20 [id number] Diagnos is: ICD-10- CM G35 Multipl e scleros is Dianne HUFFMAN 06/10 [place] Outpatient Encounter [id number] 07/07 [place] [facility] HHS/HOSPIC E OF RN EA 15 MIN [id number] Diagnos is: ICD-10- CM I10 Essenti al (primar y) hyperte nsion Stephen ALCOCER 07/09 [place] Outpatient Encounter [id number] 07/19 [place] [facility] NQHP OL DIG ASSMT&MGMT 11-20 [id number] Diagnos is: ICD-10- CM 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 SATINDER SHOOK 08/06 [place] PH1 ASSMT&MGMT NQHP 5-10 [id number] Diagnos is: ICD-10- CM G35 Multipl e scleros is Stephen ALCOCER 08/06 [place] CASE MANAGEMENT [id number] Diagnos is: ICD-10- CM Z65.9 Problem related to unspeci fied psychos ocial circums ovdiio HILL,CO NNIE D 08/09 [place] Outpatient Encounter [id number] 08/09 [place] Outpatient Encounter [id number] 08/16 [place] Outpatient Encounter [id number] 08/17 [place] Outpatient Encounter [id number] 08/18 [place] [facility] Outpatient Encounter [id number] 08/19 [place] [facility] Outpatient Encounter [id number] 08/27 [place] Outpatient Encounter [id number] 08/29 [place] [facility] EMERGENCY DEPT VISIT MOD MDM [id number] Diagnos is: ICD-10- CM G35 Multipl e scleros is NEFTALI COLE 08/29 [place] ELECTROCAR DIOGRAM COMPLETE [id number] Diagnos is: ICD-10- CM I10 Essenti al (primar y) hyperte nsion ELGENDY,IS LI Y 08/30 [place] PH1 ASSMT&MGMT NQHP 5-10 [id number] Diagnos is: ICD-10- CM G35 Multipl e scleros is BUNNY SAHA 08/30 [place] Outpatient Encounter [id number] 08[facility] [place] [facility] En[facility] [id number] 09/02 [facility] Social History Combined list of available smoking, tobacco, and other social history from Department of Defense and Veterans Affairs facilities. Social History Type Response Date Comment Sourc e Tobacco smoking status NHIS [place]-TOBACCO USER SOME DAYS 02/06/2024 [facility] History of tobacco use CA-TOBACCO DOESNT USE WI 30 MIN WAKEUP 02/06/2024 [facility] Plan of Care List of future care activities from Department of [facility] Affairs facilities. Additional future care activities may be listed in the Assessment and Plan section. Date/Time Care Activity Care Activity Detail Facili ty 09/30/2024 AMBULATORY - SURGERY AMBULATORY - SURGERY [facility] Advance Directives List of completed, amended, or rescinded Advance Directives on record at Department of [facility] Affairs facilities. An actual copy of the Directive is not included. Date Advance Directive Provider Source 03/08/2024 ADVANCE DIRECTIVE DISCUSSION RUBIN HILL [facility]
--- OUTSIDE RECORDS SUMMARY | 2024-09-02 09:24 | XMS_ITS | Encounter Summary ---
Author Organization [employer] Address [address] [place] [address] Care Team Providers Care Alum Plant Supervisor Name Role Phone Marcelino Mobley MD Primary Care Provider [phone] Encounter Details Date Type Department Care Team (Late st Contact Info) Description 09/06/2020 Transcribed Document [facility] [place] [facility] [place] [address] ProviderEphraim MD [address] [place] [address] Social History Tobacco Use Types Packs/Day Years Used Date Smoking Tobacco: Never Assessed Sex and Gender Information Value Date Recorded Sex Assigned at Not on file Legal Sex Male 4:11 PM CDT Gender Identity Not on file Sexual Orientation Not on file documented as of this encounter Miscellaneous Notes * Cerner Conversion Note - Ephraim ProviderMD - 09/06/2020 7:19 AM CDT Outpatient Visit History Entered On: 09/06/2020 7:20 EDT Performed On: 09/06/2020 7:19 EDT by CHAUNCEY BARGER RN Vital Measurements Temperature Source : Temporal artery scanning Temperature Mode : Fahrenheit Temperature, Fahrenheit : 97.3 Deg F Clinical Temperature, C : 36.3 Deg C Pulse Method : Pulse Oximetry Peripheral Pulse Rate : 64 bpm Pulse Rhythm : Regular Respiratory Rate : 16 Breaths/Min Blood Pressure Location : Arm, right upper Blood Pressure Source : Non-Invasive BP Device Blood Pressure Position : Sitting Systolic Blood Pressure : 133 mmHg Diastolic Blood Pressure : 60 mmHg Oxygen Saturation : 97 % Oxygen Therapy Mode : Room air CHAUNCEY BARGER RN - 09/06/2020 7:19 EDT Height and Weight, Clinical Dosing Height Source : Stated Height Entry Format : [place] Height, Feet : 5 ft(Converted to: 152 cm, 60 Inch) Height, Inches : 9 Inch(Converted to: 0 ft 9 Inch, 22.86 cm) Clinical Height : 175.26 cm Weight Source : Standing scale Weight Entry Format : [place] Clinical Dosing Weight : 113.64 kg Weight, Pounds : 250 lb Body Surface Area (BSA) : 2.27 m2 Body Mass Index : 37 kg/m2 (HI) [place] Body Weight : 70 kg CHAUNCEY BARGER RN - 09/06/2020 7:19 EDT Quick Look Assessment Level of Consciousness : Alert, Awake Affect/Behavior : Appropriate, Calm, Cooperative Orientation : Oriented x 4 Skin Temperature : Warm Skin Description : Normal for ethnicity CHAUNCEY BARGER RN - 09/06/2020 7:19 EDT Health Histories Smoking Status : Cigars or pipes daily within last 30 days Smokeless Tobacco Status : Never Desires Tobacco Cessation Medication : No Reason for No Tobacco Cessation Medication : ED/procedural patient only CHAUNCEY BARGER RN - 09/06/2020 7:19 EDT Social History (As Of: 09/06/2020 07:20:50 EDT) Tobacco: Cigars or pipes but not daily within last 30 days Smoking Status. (Last Updated: 02/17/2019 08:04:14 EST by EARL CISNEROS RN) Alcohol: Alcohol Use History No. (Last Updated: 08/12/2016 18:26:52 EDT by Tj Chicas, GUERITA) Substance Abuse: Drug Use Hx: No. (Last Updated: 08/12/2016 18:26:56 EDT by Tj Chicas, GUERITA) Infectious Disease History Has the patient ever been tested for COVID-19? : No, Patient stated Does patient have symptoms of COVID-19? : No COVID19 Screening : No Experiencing Infectious Disease Symptoms : No symptoms Physical contact outside [place] in the last 30 days : No Infectious Disease History : None Tuberculosis Symptoms : None CHAUNCEY BARGER RN - 09/06/2020 7:19 EDT COVID19 PreProcedure Screening Is this an Emergent or Add on Procedure? : No Date PreProcedure COVID-19 test known? : No Has patient been isolated since the test : N/A - PreProcedure, in-person visit Exposed to COVID19 symptoms since test? : N/A - PreProcedure, in-person visit CHAUNCEY BARGER RN - 09/06/2020 7:19 EDT Advance Directive Patient has Advance Directive *Q : No, patient refuses Advance Directive information CHAUNCEY BARGER RN - 09/06/2020 7:19 EDT [place] Suicide Severity Rating Scale (C-SSRS) CSSRS Past Month Wish to be : No CSSRS Past Month Suicidal Thoughts : No CSSRS Lifetime Suicide Behavior : No Suicide Severity Rating Score : 0 Suicide Severity Rating : No Additional Care Required at this time CHAUNCEY BARGER RN - 09/06/2020 7:19 EDT Psychosocial History Do You Have a History of the Following? : Patient denies history Currently in Unsafe Situation : No CHAUNCEY BARGER RN - 09/06/2020 7:19 EDT Fall Risk Scales ABCs Fall Injury Risk Identification : None ALMAZAN Hx Falls Immediate/Within 3 Months : No Almazan Secondary Diagnosis : Yes ALMAZAN Use of Ambulatory Aid : Crutches/Cane/Walker ALMAZAN IV Therapy or IV Access : Yes Almazan Gait/Transferring : Weak Almazan Mental Status : Overestimates/Forgets limitations Almazan Fall Risk Score : 75 ALMAZAN Fall Scale Risk Level : 46 or > High Risk [place] Fall Interventions : Adequate lighting, Call device within reach, Personal items within reach, Room free of clutter/spills, Wheels locked, Wires/Cords secured CHAUNCEY BARGER RN - 09/06/2020 7:19 EDT Pain Assessment Pain Assessment : Initial assessment Intensity : 0 CHAUNCEY BARGER RN - 09/06/2020 7:19 EDT documented in this encounter Plan of Treatment Upcoming Encounters Date Type Department Care Team (Late st Contact Info) Description 09/07/2024 9:00 AM EDT Appointment [facility] Outpatient Treatment [address] [place] [address] documented as of this encounter Visit Diagnoses Not on filedocumented in this encounter Care Teams Alum Plant Supervisor Relationship Specialty Start Date End Date Marcelino Mobley MD [address] [place] [address] PCP - General Emergency Medicine 03/08/22 documented as of this encounter
--- OUTSIDE RECORDS SUMMARY | 2024-09-02 09:24 | XMS_ITS | Encounter Summary ---
Author Organization [employer] Address [address] [place] [address] Care Team Providers Care Rnp Name Role Phone Marcelino Mobley MD Primary Care Provider [phone] Encounter Details Date Type Department Care Team (Late st Contact Info) Description 03/08/2021 Transcribed Document [facility] [place] Family Medicine [facility] [place] [address] ProviderEphraim MD [address] [place] [id number] Social History Tobacco Use Types Packs/Day Years Used Date Smoking Tobacco: Never Assessed Sex and Gender Information Value Date Recorded Sex Assigned at Not on file Legal Sex Male 4:11 PM CDT Gender Identity Not on file Sexual Orientation Not on file documented as of this encounter Miscellaneous Notes * Cerner Conversion Note - Ephraim ProviderMD - 03/08/2021 7:31 AM SEGMENTAL WALL INSTALLER Outpatient Visit History Entered On: 03/08/2021 7:33 EST Performed On: 03/08/2021 7:31 EST by BUCK HARTMANN RN Vital Measurements Temperature Source : Temporal artery scanning Temperature Mode : Fahrenheit Temperature, Fahrenheit : 97.5 Deg F Clinical Temperature, C : 36.4 Deg C Peripheral Pulse Rate : 72 bpm Respiratory Rate : 16 Breaths/Min Blood Pressure Location : Arm, right upper Blood Pressure Source : Non-Invasive BP Device Systolic Blood Pressure : 115 mmHg Diastolic Blood Pressure : 57 mmHg (LOW) Oxygen Saturation : 95 % Oxygen Therapy Mode : Room air BUCK HARTMANN RN - 03/08/2021 7:31 EST Height and Weight, Clinical Dosing Height Source : Measured Height Entry Format : [place] Height, Feet : 5 ft(Converted to: 152 cm, 60 Inch) Height, Inches : 9 Inch(Converted to: 0 ft 9 Inch, 22.86 cm) Clinical Height : 175.26 cm Weight Source : Standing scale Weight Entry Format : [place] Clinical Dosing Weight : 115 kg Weight, Pounds : 253 lb Body Surface Area (BSA) : 2.28 m2 Body Mass Index : 37.4 kg/m2 (HI) [place] Body Weight : 70 kg BUCK HARTMANN RN - 03/08/2021 7:31 EST Quick Look Assessment Level of Consciousness : Alert, Awake Affect/Behavior : Appropriate, Calm, Cooperative Orientation : Oriented x 4 Skin Temperature : Warm Skin Description : Normal for ethnicity BUCK HARTMANN RN - 03/08/2021 7:31 EST Health Histories Smoking Status : Cigars or pipes daily within last 30 days Smokeless Tobacco Status : Never Desires Tobacco Cessation Medication : No Reason for No Tobacco Cessation Medication : ED/procedural patient only BUCK HARTMANN RN - 03/08/2021 7:31 EST Social History (As Of: 03/08/2021 07:33:26 EST) Tobacco: Cigars or pipes but not daily within last 30 days Smoking Status. (Last Updated: 02/17/2019 08:04:14 EST by EARL CISNEROS RN) Alcohol: Alcohol Use History No. (Last Updated: 08/12/2016 18:26:52 EDT by Tj Chicas, GUERITA) Substance Abuse: Drug Use Hx: No. (Last Updated: 08/12/2016 18:26:56 EDT by Tj Chicas, GUERITA) Infectious Disease History Does patient have symptoms of COVID-19? : No Has the Patient Been Tested for COVID-19 in the last 14 days? : No, Patient stated Does the Patient state known exposure to a COVID-19 positive case in the last 14 days? : No Patient Vaccinated for COVID-19 : Fully vaccinated BUCK HARTMANN RN - 03/08/2021 7:31 EST Infectious Disease Risk Screening Grid Cough < 2 wks of unknown origin : NO Cough > 2 weeks : NO Blood in Sputum : NO Fever or self-reported Fever : NO Rash of unknown origin : NO Headache : NO Stiff neck : NO Night Sweats : NO Unexplained Weight Loss : NO Diarrhea (3 episode per day) : NO BUCK HARTMANN RN - 03/08/2021 7:31 EST Physical contact outside US in the last 30 days : No Hospitalized in Foreign Country : No Infectious Disease History : None INF Disease TB Screening Calc : 0 INF Disease Recent Travel Calc : 0 BUCK HARTMANN RN - 03/08/2021 7:31 EST COVID19 PreProcedure Screening Is this an Emergent or Add on Procedure? : Yes BUCK HARTMANN RN - 03/08/2021 7:31 EST Advance Directive Patient has Advance Directive *Q : No, patient refuses Advance Directive information BUCK HARTMANN RN - 03/08/2021 7:31 EST [place] Suicide Severity Rating Scale (C-SSRS) CSSRS Past Month Wish to be : No CSSRS Past Month Suicidal Thoughts : No CSSRS Lifetime Suicide Behavior : No Suicide Severity Rating Score : 0 Suicide Severity Rating : No Additional Care Required at this time BUCK HARTMANN RN - 03/08/2021 7:31 EST Psychosocial History Do You Have a History of the Following? : Patient denies history Currently in Unsafe Situation : No BUCK HARTMANN RN - 03/08/2021 7:31 EST Fall Risk Scales ABCs Fall Injury Risk Identification : Age ABC Fall Injury Risk : Moderate to high injury risk ALMAZAN Hx Falls Immediate/Within 3 Months : No Almazan Secondary Diagnosis : Yes ALMAZAN Use of Ambulatory Aid : Crutches/Cane/Walker ALMAZAN IV Therapy or IV Access : Yes Almazan Gait/Transferring : Normal, bedrest, immobile Almazan Mental Status : Oriented to own ability Almazan Fall Risk Score : 50 ALMAZAN Fall Scale Risk Level : 46 or > High Risk [place] Fall Interventions : Adequate lighting, Assistive devices within reach, Call device within reach, Fall prevention handout/education per facility policy, Frequent orientation to call device, Frequent orientation to surroundings, Hourly comfort/safety rounds, Non-slip footwear, Personal items within reach, Reinforced to call for assistance before getting out of bed, Room free of clutter/spills BUCK HARTMANN RN - 03/08/2021 7:31 EST Pain Assessment Pain Assessment : Initial assessment Intensity : 0 BUCK HARTMANN RN - 03/08/2021 7:31 EST documented in this encounter Plan of Treatment Upcoming Encounters Date Type Department Care Team (Late st Contact Info) Description 09/07/2024 9:00 AM EDT Appointment [facility] Outpatient Treatment [address] [place] [address] documented as of this encounter Visit Diagnoses Not on filedocumented in this encounter Care Teams Rnp Relationship Specialty Start Date End Date Marcelino Mobley MD [address] [place] [address] PCP - General Emergency Medicine 03/08/22 documented as of this encounter
--- OUTSIDE RECORDS SUMMARY | 2024-09-02 09:24 | XMS_ITS | Encounter Summary ---
Author Organization [facility] [employer] Address [address] [place] [address] Care Team Providers Care Public Relations Senior Associate Name Role Phone Marcelino Mobley MD Primary Care Provider [phone] Encounter Details Date Type Department Care Team (Late st Contact Info) Description 09/06/2020 Transcribed Document [facility] [place] [facility] [place] [address] ProviderEphraim MD [address] [place] [id number] Social History Tobacco Use Types Packs/Day Years Used Date Smoking Tobacco: Never Assessed Sex and Gender Information Value Date Recorded Sex Assigned at Not on file Legal Sex Male 4:11 PM CDT Gender Identity Not on file Sexual Orientation Not on file documented as of this encounter Miscellaneous Notes * Cerner Conversion Note - Ephraim ProviderMD - 09/06/2020 8:00 AM CDT Pain Assessment Entered On: 09/06/2020 13:31 EDT Performed On: 09/06/2020 8:24 EDT by CHAUNCEY BARGER RN Intervention Information: acetaminophen Performed by CHAUNCEY BARGER RN on 09/06/2020 07:24:00 EDT acetaminophen,1000mg Oral Pain Assessment Pain Assessment : Follow-up assessment Pain Scale Used : 0-10 Scale CHAUNCEY BARGER RN - 09/06/2020 13:30 EDT Pain Scale Intensity : 0 CHAUNCEY BARGER RN - 09/06/2020 13:30 EDT Image 4 - Images currently included in the form version of this document have not been included in the text rendition version of the form. documented in this encounter Plan of Treatment Upcoming Encounters Date Type Department Care Team (Late st Contact Info) Description 09/07/2024 9:00 AM EDT Appointment [facility] Outpatient Treatment [address] [place] [address] documented as of this encounter Visit Diagnoses Not on filedocumented in this encounter Care Teams Public Relations Senior Associate Relationship Specialty Start Date End Date Marcelino Mobley MD [address] [place] [address] PCP - General Emergency Medicine 03/08/22 documented as of this encounter
--- OUTSIDE RECORDS SUMMARY | 2024-09-02 09:24 | XMS_ITS | Encounter Summary ---
Author Organization [employer] Address [address] [place] [address] Care Team Providers Care Outside Dealer Sales Representative Name Role Phone Marcelino Mobley MD Primary Care Provider [phone] Encounter Details Date Type Department Care Team (Late st Contact Info) Description 09/06/2021 Transcribed Document [facility] [place] [facility] [place] [address] ProviderEphraim MD [address] [place] [address] Social History Tobacco Use Types Packs/Day Years Used Date Smoking Tobacco: Never Assessed Sex and Gender Information Value Date Recorded Sex Assigned at Not on file Legal Sex Male 4:11 PM CDT Gender Identity Not on file Sexual Orientation Not on file documented as of this encounter Miscellaneous Notes * Cerner Conversion Note - Ephraim Bob MD - 09/06/2021 1:03 PM CDT Nursing Discharge Summary Entered On: 09/06/2021 13:05 EDT Performed On: 09/06/2021 13:03 EDT by MALDONADO CHO water engineer Documentation Patient Disposition, General : Discharge Discharge To : Home with ambulatory/outpatient follow-up Mode Of Departure, General Discharge : Private vehicle Accompanied By, Discharge : Unaccompanied IV Discontinued : Yes Personal Belongings With Patient : Yes Pt's Own Supply of Medications Returned : No patient supply of medications to return Prescriptions Given to Patient : No Medications Given to Patient : No Patient Education Completed : Yes Teaching Method : Explanation Teaching Evaluation : Verbalizes understanding Education Comment : infusion completed without reactions or complications MALDONADO CHO RN - 09/06/2021 13:03 EDT Electronically signed by Bienvenido, [facility] Conversion Tire Worker Cerner at 07/10/2022 9:55 PM CDT documented in this encounter Plan of Treatment Upcoming Encounters Date Type Department Care Team (Late st Contact Info) Description 09/07/2024 9:00 AM EDT Appointment [facility] Outpatient Treatment [address] [place] [address] documented as of this encounter Visit Diagnoses Not on filedocumented in this encounter Care Teams Outside Dealer Sales Representative Relationship Specialty Start Date End Date Marcelino Mobley MD [address] [place] [address] PCP - General Emergency Medicine 03/08/22 documented as of this encounter
--- OUTSIDE RECORDS SUMMARY | 2024-09-02 09:24 | XMS_ITS | Encounter Summary ---
Author Organization [employer] Address [address] [place] [address] Care Team Providers Care Senior Outside Sales Representative Name Role Phone Marcelino Mobley MD Primary Care Provider [phone] Encounter Details Date Type Department Care Team (Late st Contact Info) Description 03/03/2019 Transcribed Document [facility] [place] Family Medicine [address] [place] [address] ProviderEphraim MD [facility] [place] [address] Social History Tobacco Use Types Packs/Day Years Used Date Smoking Tobacco: Never Assessed Sex and Gender Information Value Date Recorded Sex Assigned at Not on file Legal Sex Male 4:11 PM CDT Gender Identity Not on file Sexual Orientation Not on file documented as of this encounter Miscellaneous Notes * Cerner Conversion Note - Ephraim Bob MD - 03/03/2019 7:25 AM CATALYST RECOVERY OPERATOR Outpatient Visit History Entered On: 03/03/2019 7:28 EST Performed On: 03/03/2019 7:25 EST by CLAUDIA TEMPLETON RN Vital Measurements Temperature Source : Temporal artery scanning Temperature Mode : Fahrenheit Temperature, Fahrenheit : 98.2 Deg F Clinical Temperature, C : 36.8 Deg C Pulse Method : Non-Invasive BP Device Peripheral Pulse Rate : 71 bpm Respiratory Rate : 20 Breaths/Min Blood Pressure Location : Arm, right upper Blood Pressure Source : Non-Invasive BP Device Blood Pressure Position : Sitting Systolic Blood Pressure : 130 mmHg Diastolic Blood Pressure : 61 mmHg Oxygen Saturation : 97 % Oxygen Therapy Mode : Room air CLAUDIA TEMPLETON RN - 03/03/2019 7:25 EST Height and Weight, Clinical Dosing Height Source : Chart Height Entry Format : [place] Height, Feet : 5 ft(Converted to: 152 cm, 60 Inch) Height, Inches : 9 Inch(Converted to: 0 ft 9 Inch, 22.86 cm) Clinical Height : 175.26 cm Weight Source : Standing scale Weight Entry Format : [place] Clinical Dosing Weight : 113.64 kg Weight, Pounds : 250 lb Body Surface Area (BSA) : 2.27 m2 Body Mass Index : 37 kg/m2 (HI) [place] Body Weight : 70 kg CLAUDIA TEMPLETON RN - 03/03/2019 7:25 EST Quick Look Assessment Level of Consciousness : Alert Affect/Behavior : Calm Orientation : Oriented x 4 Skin Temperature : Warm Skin Description : Dry CLAUDIA TEMPLETON RN - 03/03/2019 7:25 EST Health Histories Smoking Status : Cigars or pipes but not daily within last 30 days Smokeless Tobacco Status : Never Desires Tobacco Cessation Medication : No Reason for No Tobacco Cessation Medication : Refuses FDA approved medications CLAUDIA TEMPLETON RN - 03/03/2019 7:25 EST Social History (As Of: 03/03/2019 07:28:54 EST) Tobacco: Cigars or pipes but not daily within last 30 days Smoking Status. (Last Updated: 02/17/2019 08:04:14 EST by EARL CISNEROS RN) Alcohol: Alcohol Use History No. (Last Updated: 08/12/2016 18:26:52 EDT by Tj Chicas, GUER[place]) Substance Abuse: Drug Use Hx: No. (Last Updated: 08/12/2016 18:26:56 EDT by Tj Chicas, GUERITA) Advance Directive Patient has Advance Directive *Q : No, patient refuses Advance Directive information CLAUDIA TEMPLETON RN - 03/03/2019 7:25 EST [place] Suicide Severity Rating Scale (C-SSRS) CSSRS Past Month Wish to be : No CSSRS Past Month Suicidal Thoughts : No CSSRS Lifetime Suicide Behavior : No Suicide Severity Rating Score : 0 Suicide Severity Rating : No Additional Care Required at this time CLAUDIA TEMPLETON RN - 03/03/2019 7:25 EST Psychosocial History Does Someone Depend on You for Care? : No Do You Have a History of the Following? : Patient denies history Currently in Unsafe Situation : No CLAUDIA TEMPLETON RN - 03/03/2019 7:25 EST Fall Risk Scales ABCs Fall Injury Risk Identification : None ALMAZAN Hx Falls Immediate/Within 3 Months : No Almazan Secondary Diagnosis : No ALMAZAN Use of Ambulatory Aid : Crutches/Cane/Walker ALMAZAN IV Therapy or IV Access : No Almazan Gait/Transferring : Impaired Almazan Mental Status : Oriented to own ability Almazan Fall Risk Score : 35 ALMAZAN Fall Scale Risk Level : 46 or > High Risk [place] Fall Interventions : Adequate lighting, Assistive devices within reach, Call device within reach, Frequent orientation to call device, Frequent orientation to surroundings, Hourly comfort/safety rounds, Non-slip footwear, Personal items within reach, Reinforced to call for assistance before getting out of bed, Room free of clutter/spills, Wheels locked, Wires/Cords secured CLAUDIA TEMPLETON RN - 03/03/2019 7:25 EST Pain Assessment Pain Assessment : Initial assessment Intensity : 0 CLAUDIA TEMPLETON RN - 03/03/2019 7:25 EST Electronically signed by [facility] Conversion Associate Store Leader Cerner at 07/10/2022 10:07 PM CDT documented in this encounter Plan of Treatment Upcoming Encounters Date Type Department Care Team (Late st Contact Info) Description 09/07/2024 9:00 AM EDT Appointment [facility] Outpatient Treatment [address] [place] [address] documented as of this encounter Visit Diagnoses Not on filedocumented in this encounter Care Teams Senior Outside Sales Representative Relationship Specialty Start Date End Date Marcelino Mobley MD [address] [place] [address] PCP - General Emergency Medicine 03/08/22 documented as of this encounter
--- OUTSIDE RECORDS SUMMARY | 2024-09-02 09:24 | XMS_ITS | Encounter Summary ---
Author Organization [employer] Address [address] [place] [address] Care Team Providers Care Cell Attendant Helper Name Role Phone Marcelino Mobley MD Primary Care Provider [phone] Encounter Details Date Type Department Care Team (Late st Contact Info) Description 03/07/2020 Transcribed Document [facility] [place] [facility] [place] [address] ProviderEphraim MD [address] [place] [address] Social History Tobacco Use Types Packs/Day Years Used Date Smoking Tobacco: Never Assessed Sex and Gender Information Value Date Recorded Sex Assigned at Not on file Legal Sex Male 4:11 PM CDT Gender Identity Not on file Sexual Orientation Not on file documented as of this encounter Miscellaneous Notes * Cerner Conversion Note - Ephraim Bob MD - 03/07/2020 7:29 AM ROVING WINDER Outpatient Visit History Entered On: 03/07/2020 7:31 EST Performed On: 03/07/2020 7:29 EST by [facility] BLAKE RN Vital Measurements Temperature Source : Temporal artery scanning Temperature Mode : Fahrenheit Temperature, Fahrenheit : 97.1 Deg F Clinical Temperature, C : 36.2 Deg C Peripheral Pulse Rate : 71 bpm Respiratory Rate : 18 Breaths/Min Blood Pressure Location : Arm, right upper Systolic Blood Pressure : 120 mmHg Diastolic Blood Pressure : 58 mmHg (LOW) Oxygen Saturation : 96 % Oxygen Therapy Mode : Room air VA BLAKE RN - 03/07/2020 7:29 EST Height and Weight, Clinical Dosing Height Source : Stated Height Entry Format : [place] Height, Feet : 5 ft(Converted to: 152 cm, 60 Inch) Height, Inches : 9 Inch(Converted to: 0 ft 9 Inch, 22.86 cm) Clinical Height : 175.26 cm Weight Source : Standing scale Weight Entry Format : [place] Clinical Dosing Weight : 109.09 kg Weight, Pounds : 240 lb Body Surface Area (BSA) : 2.23 m2 Body Mass Index : 35.5 kg/m2 (HI) [place] Body Weight : 70 kg VA BLAKE RN - 03/07/2020 7:29 EST Quick Look Assessment Level of Consciousness : Alert, Awake Affect/Behavior : Appropriate, Calm, Cooperative Orientation : Oriented x 4 Skin Temperature : Warm Skin Description : Normal for ethnicity VA BLAKE RN - 03/07/2020 7:29 EST Health Histories Smoking Status : Smoker, current status unknown Smokeless Tobacco Status : Never Desires Tobacco Cessation Medication : No Reason for No Tobacco Cessation Medication : Refuses FDA approved medications VA BLAKE RN - 03/07/2020 7:29 EST Social History (As Of: 03/07/2020 07:31:56 EST) Tobacco: Cigars or pipes but not daily within last 30 days Smoking Status. (Last Updated: 02/17/2019 08:04:14 EST by EARL CISNEROS RN) Alcohol: Alcohol Use History No. (Last Updated: 08/12/2016 18:26:52 EDT by Tj Chicas RN) Substance Abuse: Drug Use Hx: No. (Last Updated: 08/12/2016 18:26:56 EDT by Tj Chicas RN) Infectious Disease History Has the patient ever been tested for COVID-19? : No, Patient stated Does patient have symptoms of COVID-19? : No COVID19 Screening : No Experiencing Infectious Disease Symptoms : No symptoms Physical contact outside [place] in the last 30 days : No Infectious Disease History : None Tuberculosis Symptoms : None VA BLAKE RN - 03/07/2020 7:29 EST COVID19 PreProcedure Screening Is this an Emergent or Add on Procedure? : No Date PreProcedure COVID-19 test known? : No Has patient been isolated since the test : N/A - PreProcedure, in-person visit Exposed to COVID19 symptoms since test? : N/A - PreProcedure, in-person visit VA BLAKE RN - 03/07/2020 7:29 EST Advance Directive Patient has Advance Directive *Q : No, patient refuses Advance Directive information VA BLAKE RN - 03/07/2020 7:29 EST [place] Suicide Severity Rating Scale (C-SSRS) CSSRS Past Month Wish to be : No CSSRS Past Month Suicidal Thoughts : No CSSRS Lifetime Suicide Behavior : No Suicide Severity Rating Score : 0 Suicide Severity Rating : No Additional Care Required at this time VA BLAKE RN - 03/07/2020 7:29 EST Psychosocial History Do You Have a History of the Following? : Patient denies history Currently in Unsafe Situation : No VA BLAKE RN - 03/07/2020 7:29 EST Fall Risk Scales ABCs Fall Injury Risk Identification : None ALMAZAN Hx Falls Immediate/Within 3 Months : No Almazan Secondary Diagnosis : Yes ALMAZAN Use of Ambulatory Aid : Crutches/Cane/Walker ALMAZAN IV Therapy or IV Access : Yes Almazan Gait/Transferring : Impaired Almazan Mental Status : Oriented to own ability Almazan Fall Risk Score : 70 ALMAZAN Fall Scale Risk Level : 46 or > High Risk [place] Fall Interventions : Adequate lighting, Assistive devices within reach, Call device within reach, Fall prevention handout/education per facility policy, Hourly comfort/safety rounds, Non-slip footwear, Personal items within reach, Room free of clutter/spills, Wheels locked, Wires/Cords secured VA BLAKE RN - 03/07/2020 7:29 EST Pain Assessment Pain Assessment : Initial assessment Intensity : 0 VA BLAKE RN - 03/07/2020 7:29 EST documented in this encounter Plan of Treatment Upcoming Encounters Date Type Department Care Team (Late st Contact Info) Description 09/07/2024 9:00 AM EDT Appointment [facility] Outpatient Treatment [address] [place] [address] documented as of this encounter Visit Diagnoses Not on filedocumented in this encounter Care Teams Cell Attendant Helper Relationship Specialty Start Date End Date Marcelino Mobley MD [address] [place] [address] (work) PCP - General Emergency Medicine 03/08/22 documented as of this encounter
--- OUTSIDE RECORDS SUMMARY | 2024-09-02 09:24 | XMS_ITS | Encounter Summary ---
Author Organization [employer] Address [address] [place] [address] Care Team Providers Care Implementation Manager Name Role Phone Marcelino Mobley MD Primary Care Provider [phone] Encounter Details Date Type Department Care Team (Late st Contact Info) Description 09/06/2020 Transcribed Document [facility] [place] [facility] [place] [address] ProviderEphraim MD [address] [place] [address] Social History Tobacco Use Types Packs/Day Years Used Date Smoking Tobacco: Never Assessed Sex and Gender Information Value Date Recorded Sex Assigned at Not on file Legal Sex Male 4:11 PM CDT Gender Identity Not on file Sexual Orientation Not on file documented as of this encounter Miscellaneous Notes * Cerner Conversion Note - Ephraim ProviderMD - 09/06/2020 1:30 PM CDT Nursing Discharge Summary Entered On: 09/06/2020 13:32 EDT Performed On: 09/06/2020 13:30 EDT by CHAUNCEY BARGER, assisted living housekeeper Documentation Discharge Date/Time : 09/06/2020 13:30 EDT Patient Disposition, General : Discharge Discharge To : Home with ambulatory/outpatient follow-up Mode Of Departure, General Discharge : Wheelchair with adult Accompanied By, Discharge : Spouse IV Discontinued : Yes Personal Belongings With Patient : Yes Pt's Own Supply of Medications Returned : No patient supply of medications to return Prescriptions Given to Patient : No Discharge Instructions Reviewed With, Opportunity For Questions Given : Patient Patient Education Completed : Yes Teaching Method : Explanation Teaching Evaluation : Verbalizes understanding Education Comment : Pt tolerated infusion without complaints or difficulty, dcd stable condition CHAUNCEY BARGER, GUERITA - 09/06/2020 13:31 EDT documented in this encounter Plan of Treatment Upcoming Encounters Date Type Department Care Team (Late st Contact Info) Description 09/07/2024 9:00 AM EDT Appointment [facility] Outpatient Treatment [address] [place] [address] documented as of this encounter Visit Diagnoses Not on filedocumented in this encounter Care Teams Implementation Manager Relationship Specialty Start Date End Date Marcelino Mobley MD [address] [place] [address] PCP - General Emergency Medicine 03/08/22 documented as of this encounter
--- OUTSIDE RECORDS SUMMARY | 2024-09-02 09:24 | XMS_ITS | Encounter Summary ---
Author Organization [employer] Address [address] [place] [address] Care Team Providers Care Purse Framer Name Role Phone Marcelino Mobley MD Primary Care Provider [phone] Encounter Details Date Type Department Care Team (Late st Contact Info) Description 09/06/2019 Transcribed Document [facility] [place] [address] ProviderEphraim MD [address] [place] [address] Social History Tobacco Use Types Packs/Day Years Used Date Smoking Tobacco: Never Assessed Sex and Gender Information Value Date Recorded Sex Assigned at Not on file Legal Sex Male 4:11 PM CDT Gender Identity Not on file Sexual Orientation Not on file documented as of this encounter Miscellaneous Notes * Cerner Conversion Note - Ephraim ProviderMD - 09/06/2019 1:44 PM CDT Nursing Discharge Summary Entered On: 09/06/2019 13:44 EDT Performed On: 09/06/2019 13:44 EDT by GIOVANNI MITCHELL hot mill roller Documentation Discharge Date/Time : 09/06/2019 13:30 EDT Patient Disposition, General : Discharge Discharge To : Home with ambulatory/outpatient follow-up Mode Of Departure, General Discharge : Wheelchair Accompanied By, Discharge : Spouse IV Discontinued : Yes Discharge Instructions Reviewed With, Opportunity For Questions Given : Patient Teaching Method : Explanation Teaching Evaluation : Verbalizes understanding GIOVANNI MITCHELL RN - 09/06/2019 13:44 EDT Electronically signed by Bienvenido [facility] Conversion Batterboard Setter Cerner at 07/10/2022 9:43 PM CDT documented in this encounter Plan of Treatment Upcoming Encounters Date Type Department Care Team (Late st Contact Info) Description 09/07/2024 9:00 AM EDT Appointment [facility] Outpatient Treatment [address] [place] [address] documented as of this encounter Visit Diagnoses Not on filedocumented in this encounter Care Teams Purse Framer Relationship Specialty Start Date End Date aMrcelino Mobley MD [address] [place] [address] PCP - General Emergency Medicine 03/08/22 documented as of this encounter
--- OUTSIDE RECORDS SUMMARY | 2024-09-02 09:24 | XMS_ITS | Encounter Summary ---
Author Organization [employer] Address [address] [place] [address] Care Team Providers Care Core Measures Abstractor Name Role Phone Marcelino Mobley MD Primary Care Provider [phone] Encounter Details Date Type Department Care Team (Late st Contact Info) Description 03/07/2020 Transcribed Document [facility] [place] [facility] [place] [address] ProviderEphraim MD [address] [place] [address] Social History Tobacco Use Types Packs/Day Years Used Date Smoking Tobacco: Never Assessed Sex and Gender Information Value Date Recorded Sex Assigned at Not on file Legal Sex Male 4:11 PM CDT Gender Identity Not on file Sexual Orientation Not on file documented as of this encounter Miscellaneous Notes * Cerner Conversion Note - Ephraim Bob MD - 03/07/2020 1:00 PM HISTOLOGY TECHNOLOGIST Nursing Discharge Summary Entered On: 03/07/2020 12:54 EST Performed On: 03/07/2020 13:00 EST by VA BLAKE, material combiner Documentation Discharge Date/Time : 03/07/2020 13:00 EST Patient Disposition, General : Discharge Discharge To : Home with ambulatory/outpatient follow-up Mode Of Departure, General Discharge : Private vehicle Accompanied By, Discharge : Spouse IV Discontinued : Yes Personal Belongings With Patient : No personal belongings to return Pt's Own Supply of Medications Returned : No patient supply of medications to return Prescriptions Given to Patient : No Discharge Instructions Reviewed With, Opportunity For Questions Given : Patient Patient Education Completed : Yes Teaching Method : Explanation Teaching Evaluation : Verbalizes understanding Education Comment : infusion complete, pt tolerated well without difficulty, 6m appt has been made VA BLAKE, RN - 03/07/2020 12:53 EST Electronically signed by Bienvenido, [facility] Conversion Refining Engineer Cerner at 07/10/2022 9:45 PM CDT documented in this encounter Plan of Treatment Upcoming Encounters Date Type Department Care Team (Late st Contact Info) Description 09/07/2024 9:00 AM EDT Appointment [facility] Outpatient Treatment [address] [place] [address] documented as of this encounter Visit Diagnoses Not on filedocumented in this encounter Care Teams Core Measures Abstractor Relationship Specialty Start Date End Date Marcelino Mobley MD [address] [place] [address] PCP - General Emergency Medicine 03/08/22 documented as of this encounter
--- OUTSIDE RECORDS SUMMARY | 2024-09-02 09:24 | XMS_ITS | Encounter Summary ---
Author Organization [facility] [employer] Address [address] [place] [address] Care Team Providers Care Manager Business Process Name Role Phone Marcelino Mobley MD Primary Care Provider [phone] Encounter Details Date Type Department Care Team (Late st Contact Info) Description 09/06/2019 Transcribed Document [facility] [place] [address] ProviderEphraim MD [address] [place] [address] Social History Tobacco Use Types Packs/Day Years Used Date Smoking Tobacco: Never Assessed Sex and Gender Information Value Date Recorded Sex Assigned at Not on file Legal Sex Male 4:11 PM CDT Gender Identity Not on file Sexual Orientation Not on file documented as of this encounter Miscellaneous Notes * Cerner Conversion Note - Ephraim Bob MD - 09/06/2019 7:45 AM CDT Outpatient Visit History Entered On: 09/06/2019 7:48 EDT Performed On: 09/06/2019 7:45 EDT by LUIS VELASQUEZ RN Vital Measurements Temperature Source : Temporal artery scanning Temperature Mode : Fahrenheit Temperature, Fahrenheit : 96.9 Deg F Clinical Temperature, C : 36.1 Deg C Pulse Method : Non-Invasive BP Device Pulse Source : Brachial, Right Peripheral Pulse Rate : 67 bpm Respiratory Rate : 16 Breaths/Min Blood Pressure Location : Arm, right upper Blood Pressure Source : Non-Invasive BP Device Blood Pressure Position : Sitting Systolic Blood Pressure : 140 mmHg Diastolic Blood Pressure : 65 mmHg Oxygen Saturation : 94 % Oxygen Therapy Mode : Room air LUIS VELASQUEZ RN - 09/06/2019 7:45 EDT Height and Weight, Clinical Dosing Height Source : Chart Height Entry Format : [place] Height, Feet : 5 ft(Converted to: 152 cm, 60 Inch) Height, Inches : 9 Inch(Converted to: 0 ft 9 Inch, 22.86 cm) Clinical Height : 175.26 cm Weight Source : Standing scale Weight Entry Format : [place] Clinical Dosing Weight : 113.64 kg Weight, Pounds : 250 lb Body Surface Area (BSA) : 2.27 m2 Body Mass Index : 37 kg/m2 (HI) [place] Body Weight : 70 kg LUIS VELASQUEZ RN - 09/06/2019 7:45 EDT Quick Look Assessment Level of Consciousness : Alert Affect/Behavior : Appropriate Orientation : Oriented x 4 Skin Temperature : Warm Skin Description : Normal for ethnicity LUIS VELASQUEZ RN - 09/06/2019 7:45 EDT Health Histories Smoking Status : Cigars or pipes daily within last 30 days Smokeless Tobacco Status : Never Desires Tobacco Cessation Medication : No Reason for No Tobacco Cessation Medication : Refuses FDA approved medications LUIS VELASQUEZ RN - 09/06/2019 7:45 EDT Social History (As Of: 09/06/2019 07:48:22 EDT) Tobacco: Cigars or pipes but not [...] tested for COVID-19? : No, Patient stated Date of COVID-19 test known? : No COVID19 Screening : No Experiencing Infectious Disease Symptoms : No symptoms Physical contact outside US in the last 30 days : No Infectious Disease Symptoms Score : 0 Infectious Disease History : None Tuberculosis Symptoms : None LUIS VELASQUEZ RN - 09/06/2019 7:45 EDT COVID19 PreProcedure Screening Is this an Emergent or Add on Procedure? : No Date of COVID-19 test known? : No Has patient been isolated since the test : N/A - PreProcedure, in-person visit Exposed to COVID19 symptoms since test? : N/A - PreProcedure, in-person visit LUIS VELASQUEZ RN - 09/06/2019 7:45 EDT Advance Directive Patient has Advance Directive *Q : No, patient refuses Advance Directive information LUIS VELASQUEZ RN - 09/06/2019 7:45 EDT [place] Suicide Severity Rating Scale (C-SSRS) CSSRS Past Month Wish to be : No CSSRS Past Month Suicidal Thoughts : No CSSRS Lifetime Suicide Behavior : No Suicide Severity Rating Score : 0 Suicide Severity Rating : No Additional Care Required at this time LUIS VELASQUEZ RN - 09/06/2019 7:45 EDT Psychosocial History Does Someone Depend on You for Care? : No Do You Have a History of the Following? : Patient denies history Currently in Unsafe Situation : No LUIS VELASQUEZ RN - 09/06/2019 7:45 EDT Fall Risk Scales ABCs Fall Injury Risk Identification : Bones ABC Fall Injury Risk : Moderate to high injury risk ALMAZAN Hx Falls Immediate/Within 3 Months : No Almazan Secondary Diagnosis : Yes ALMAZAN Use of Ambulatory Aid : Crutches/Cane/Walker ALMAZAN IV Therapy or IV Access : Yes [place] Gait/Transferring : Impaired Almazan Mental Status : Oriented to own ability Almazan Fall Risk Score : 70 ALMAZAN Fall Scale Risk Level : 46 or > High Risk [place] Fall Interventions : Adequate lighting, Assistive devices within reach, Bed in low position, Call device within reach, Hourly comfort/safety rounds Fall Moderate to High Risk Interventions : Patient room close to nurses station Fall Risk Scale Calc Temp : 0 LUIS VELASQUEZ RN - 09/06/2019 7:45 EDT Pain Assessment Pain Assessment : Initial assessment Intensity : 0 LUIS VELASQUEZ RN - 09/06/2019 7:45 EDT documented in this encounter Plan of Treatment Upcoming Encounters Date Type Department Care Team (Late st Contact Info) Description 09/07/2024 9:00 AM EDT Appointment [facility] Outpatient Treatment [address] [place] [phone] documented as of this encounter Visit Diagnoses Not on filedocumented in this encounter Care Teams Manager Business Process Relationship Specialty Start Date End Date Marcelino Mobley MD [address] [place] [address] PCP - General Emergency Medicine 03/08/22 documented as of this encounter
--- OUTSIDE RECORDS SUMMARY | 2024-09-02 09:24 | XMS_ITS | Clinical Summary ---
Author Organization [facility] Address [address] [place] [address] Phone Care Team Providers Care Green Chain Off Bearer Name Role Phone Tesha BEARD, Tj Sevilla [ ] Conditions or Problems Problem Name Problem Code Onset Date Status Entry Date Provider Comment Standard Description Annotate PERSONAL HISTORY OF IMMUNOSUPPRES LOC THERAPY 757077470 (SNOMED CT) 10/29 Active 10/29 Tj Parkinson MD History of immunosuppressiv e therapy Multiple sclerosis 49922055 (SNOMED CT) 09/29 Active 09/29 Tiarra Ulrich Multiple sclerosis Need for prophylactic vaccination against Hepatitis B 329094280 (SNOMED CT) 09/29 Active 09/29 Tiarra Ulrich Procedure needed Immunity status testing, antibody response 719949223 (SNOMED CT) 09/29 Active 09/29 Tiarra Ulrich Procedure carried out on subject Medications Medication Instructions Start Date Stop Date Generic Name NDC Provider BISOPROLOL FUMARATE 5 MG TABS Take 1 tablet by mouth daily BISOPROLOL FUMARATE 02707579251 Martha S ATORVASTATIN CALCIUM 20 MG TABS Take one (1) tablet by mouth twice a day ATORVASTATIN CALCIUM 42275277025 Martha S ALFUZOSIN HCL ER 10 MG [id number] Take 1 tablet by mouth daily ALFUZOSIN HCL 38110735146 Martha S GABAPENTIN 100 MG CAPS Take one (1) tablet by mouth four times a day GABAPENTIN 92578820424 Martha S TECFIDERA 240 MG CPDR Take one (1) tablet by mouth twice a day DIMETHYL FUMARATE 05855147067 Martha S ADULT ASPIRIN REGIMEN 81 MG ORAL TABLET DELAYED RELEASE Take 1 tablet by mouth daily ASPIRIN 00991940493 Martha S PRESERVISION AREDS 2+MULTI VIT CAPS Take one (1) tablet by mouth twice a day MULTIPLE VITAMINS-MINERALS 90852256135 Martha Dean E 1000 CAPSULE Take 1 tablet by mouth daily VITAMIN E CAPS 65939882187 Martha Dean VITAMIN D3 50 MCG (2000 UT) TABS Take one (1) tablet by mouth twice a day CHOLECALCIFEROL 44149591453 Martha Dean B-12 1000 MCG CAPS Take 1 tablet by mouth daily CYANOCOBALAMIN 70537787448 Martha Dean PEPCID 20 MG TABS Take 1 tablet by mouth daily prn FAMOTIDINE 18160026201 Martha Dean 4X PROBIOTIC TABS Take 1 tablet by mouth daily PROBIOTIC PRODUCT 85466505788 Martha Dean Medications Administered No information available. Allergies, Adverse Reactions, Alerts No information available. Results Date Name Value Unit Range Flag Description Lab Report: COMPREHENSIVE ME TABOLIC PANEL ANIONGAP 10.0 mmol/L 5.0-15.0 anion gap, serum BUN/CREAT 13.4 7.0-25.0 Urea nitrogen/Creatinine [Mass Ratio] in Serum or Plasma [id number] 1.5 g/dL GE use only - for LinkLogic import when terms are not otherwise specified GFRC 60 mL/min/1 .73m2 >60 L Glomerular Filtration Rate Calculation BILI TOTAL 0.8 mg/dL 0.2-1.2 Bilirubin. total [Mass/volume] in Serum or Plasma ALK PHOS 74 U/L 39-117 Alkaline chica sphatase [Enzymatic activity/volume] in Blood SGOT (AST) 16 U/L 1-40 Aspartate aminotransferase [Enzymatic activity/volume] in Serum or Plasma SGPT (ALT) 37 U/L 1-41 Alanine aminotransferase [Enzymatic activity/volume] in Serum or Plasma ALBUMIN 3.80 g/dL 3.50-5.20 Albumin [Mass/volume] in Serum or Plasma PROTEIN, TOT 6.3 g/dL 6.0-8.5 Protein [Mass/volume] in Serum or Plasma CALCIUM 9.0 mg/dL 8.6-10.5 Calcium [Moles/volume] in Serum or Plasma CO2 24.0 mmol/L 22.0-29.0 Carbon diox rosanna, total [Moles/volume] in Venous blood CHLORIDE 101 mmol/L 98-107 Chloride [Moles/volume] in Serum or Plasma POTASSIUM 4.5 mmol/L 3.5-5.2 Potassium [Moles/volume] in Serum or Plasma SODIUM 135 mmol/L 136-145 L Sodium [Moles/volume] in Serum or Plasma CREATININE 1.19 mg/dL 0.76-1.27 Creatini ne [Mass/volume] in Serum or Plasma BUN 16 mg/dL 8-23 Urea nitrogen [Mass/volume] in Serum or Plasma GLUCOSE SER 103 mg/dL 65-99 H Glucose [Mass/volume] in Serum or Plasma Lab Report: HBsAg Screen HBSAGC N Negative Hepatitis B virus surface Ag [Presence] in Serum or Plasma by Confirmatory method Office Visit: room1 MEDS REVIEW Done Documenta tion of current medications (procedure) ORALTOBACUSE Never Tobacco smoking status CIGAR USE yes Tobacco smo delma status CIGARET SMKG yes Tobacco smoking status SMOK STATUS Former smoker Tobacco smoking status Plan of Care Type Date Detail Pending order Hep B Surface AG Pending order Hep B Core AB, T otal Pending order CMP Pending order Hep B Surface AB Pending order STAT Labs Procedures Code Procedure Name Date Entry Date 030071 Hep B Surface AG CPT-33332 Hep B Core AB, Total CPT-68509 CMP CPT-11149 Hep B Surface AB CPT-sl STAT Labs Vital Signs Date Name Value Unit Description BMI (Body Mass Index) 36.91 kg/m2 Bod y Mass Index (Ratio) Body Temperature 97.9 [degF] temperat ure E&M BP Diastolic 66 mm[Hg] blood pressu re, diastolic BP Systolic 106 mm[Hg] blood pressur e, systolic Heart Rate 68 /min pulse rate Respiratory Rate 16 /min respirat ory rate E&M Weight Measured 250 [lb_av] weight E& M Weight Measured 250 [lb_av] weight E& M Height 69 [in_us] height E&M Immunizations Vaccine Administration Date Standard Description CVX Co de Dose Heplisav-B 20 MCG/0.5ML Heplisav-B 20 MCG/0.5ML 189 0.5 mL Heplisav-B 20 MCG/0.5ML Heplisav-B 20 MCG/0.5ML 189 0.5 mL Advance Directives Directive Description Start Date NO ADVANCED DIRECTIVES ESTABLISHED AT TH IS TIME
--- OUTSIDE RECORDS SUMMARY | 2024-09-02 09:24 | XMS_ITS | Encounter Summary ---
Author Organization [employer] [employer] Address [address] [place] [address] Care Team Providers Care Purchasing And Claims Supervisor Name Role Phone Marcelino Mobley MD Primary Care Provider [phone] Encounter Details Date Type Department Care Team (Late st Contact Info) Description 09/06/2021 Transcribed Document [facility] [place] [facility] [address] ProviderEphraim MD [address] [place] [address] [id number] Social History Tobacco Use Types Packs/Day Years Used Date Smoking Tobacco: Never Assessed Sex and Gender Information Value Date Recorded Sex Assigned at Not on file Legal Sex Male 4:11 PM CDT Gender Identity Not on file Sexual Orientation Not on file documented as of this encounter Miscellaneous Notes * Cerner Conversion Note - Ephraim ProviderMD - 09/06/2021 7:20 AM CDT Outpatient Visit History Entered On: 09/06/2021 7:26 EDT Performed On: 09/06/2021 7:20 EDT by MALDONADO COH RN Vital Measurements Temperature Source : Temporal artery scanning Temperature Mode : Fahrenheit Temperature, Fahrenheit : 98.1 Deg F Clinical Temperature, C : 36.7 Deg C Pulse Method : Pulse Oximetry Peripheral Pulse Rate : 58 bpm (LOW) Blood Pressure Location : Arm, right upper Blood Pressure Source : Non-Invasive BP Device Blood Pressure Position : Sitting Systolic Blood Pressure : 148 mmHg (HI) Diastolic Blood Pressure : 65 mmHg Oxygen Saturation : 93 % (LOW) Oxygen Therapy Mode : Room air MALDONADO CHO RN - 09/06/2021 7:20 EDT Height and Weight, Clinical Dosing Height Source : Stated Height Entry Format : [place] Height, Feet : 5 ft(Converted to: 152 cm, 60 Inch) Height, Inches : 8 Inch(Converted to: 0 ft 8 Inch, 20.32 cm) Clinical Height : 172.72 cm Weight Source : Standing scale Weight Entry Format : [place] Clinical Dosing Weight : 113.64 kg Weight, Pounds : 250 lb Body Surface Area (BSA) : 2.25 m2 Body Mass Index : 38.1 kg/m2 (HI) [place] Body Weight : 67 kg MALDONADO CHO RN - 09/06/2021 7:20 EDT Quick Look Assessment Level of Consciousness : Alert, Awake Affect/Behavior : Appropriate, Calm, Cooperative Skin Temperature : Cold Skin Description : Dry MALDONADO CHO RN - 09/06/2021 7:20 EDT Health Histories Smoking Status : Cigars or pipes but not daily within last 30 days Smokeless Tobacco Status : Never Desires Tobacco Cessation Medication : No Reason for No Tobacco Cessation Medication : Refuses FDA approved medications MALDONADO CHO RN - 09/06/2021 7:20 EDT Social History (As Of: 09/06/2021 07:26:33 EDT) Tobacco: Cigars or pipes but not daily within last 30 days Smoking Status. (Last Updated: 02/17/2019 08:04:14 EST by EARL CISNEROS RN) Alcohol: Alcohol Use History No. (Last Updated: 08/12/2016 18:26:52 EDT by Tj Chicas RN) Substance Abuse: Drug Use Hx: No. (Last Updated: 08/12/2016 18:26:56 EDT by Tj Chicas RN) Infectious Disease History Does patient have symptoms of COVID-19? : No Tested for COVID19 in the past 14 days : No, Patient stated Does the Patient state known exposure to a COVID-19 positive case in the last 14 days? : No Patient Vaccinated for COVID-19 : Fully vaccinated MALDONADO CHO RN - 09/06/2021 7:20 EDT Infectious Disease Risk Screening Grid Cough < 2 wks of unknown origin : NO Cough > 2 weeks : NO Blood in Sputum : NO Fever or self-reported Fever : NO Rash of unknown origin : NO Headache : NO Stiff neck : NO Night Sweats : NO Unexplained Weight Loss : NO Diarrhea (3 episode per day) : NO MALDONADO CHO RN - 09/06/2021 7:20 EDT Physical contact outside US in the last 30 days : No Hospitalized in Foreign Country : No Infectious Disease History : None INF Disease TB Screening Calc : 0 INF Disease Recent Travel Calc : 0 MALDONADO CHO RN - 09/06/2021 7:20 EDT COVID19 PreProcedure Screening Is this an Emergent or Add on Procedure? : No Date PreProcedure COVID-19 test known? : No Has patient been isolated since the test : No Exposed to COVID19 symptoms since test? : No MALDONADO CHO RN - 09/06/2021 7:20 EDT Advance Directive Patient has Advance Directive *Q : No, patient refuses Advance Directive information MALDONADO CHO RN - 09/06/2021 7:20 EDT [place] Suicide Severity Rating Scale (C-SSRS) CSSRS Past Month Wish to be : No CSSRS Past Month Suicidal Thoughts : No CSSRS Lifetime Suicide Behavior : No Suicide Severity Rating Score : 0 Suicide Severity Rating : No Additional Care Required at this time MALDONADO CHO RN - 09/06/2021 7:20 EDT Psychosocial History Do You Have a History of the Following? : Patient denies history Currently in Unsafe Situation : No MALDONADO CHO RN - 09/06/2021 7:20 EDT Fall Risk Scales ABCs Fall Injury Risk Identification : Age ABC Fall Injury Risk : Moderate to high injury risk ALMAZAN Hx Falls Immediate/Within 3 Months : No Almazan Secondary Diagnosis : Yes ALMAZAN Use of Ambulatory Aid : Crutches/Cane/Walker ALMAZAN IV Therapy or IV Access : No Almazan Gait/Transferring : Normal, bedrest, immobile Almazan Mental Status : Oriented to own ability Almazan Fall Risk Score : 30 ALMAZAN Fall Scale Risk Level : 25-45 Medium Risk [place] Fall Interventions : Adequate lighting, Call device within reach, Personal items within reach, Room free of clutter/spills, Wheels locked, Wires/Cords secured MALDONADO CHO RN - 09/06/2021 7:20 EDT Pain Assessment Pain Assessment : Initial assessment Intensity : 0 MALDONADO CHO RN - 09/06/2021 7:20 EDT Electronically signed by Vinod Faria Conversion Clinical Research Nurse Coordinator Cerner at 07/10/2022 9:42 PM CDT documented in this encounter Plan of Treatment Upcoming Encounters Date Type Department Care Team (Late st Contact Info) Description 09/07/2024 9:00 AM EDT Appointment [facility] Outpatient Treatment [address] [place] [address] documented as of this encounter Visit Diagnoses Not on filedocumented in this encounter Care Teams Purchasing And Claims Supervisor Relationship Specialty Start Date End Date Marcelino Mobley MD [address] [place] [address] PCP - General Emergency Medicine 03/08/22 documented as of this encounter
--- OUTSIDE RECORDS SUMMARY | 2024-09-02 09:24 | XMS_ITS | Encounter Summary ---
Author Organization [facility] Address [address] [place] [address] Care Team Providers Care Tankman Name Role Phone Marcelino Mobley MD Primary Care Provider [phone] Encounter Details Date Type Department Care Team (Late st Contact Info) Description 03/08/2021 Transcribed Document [facility] [place] [facility] [place] [address] ProviderEphraim MD [address] [place] [address] [phone] Social History Tobacco Use Types Packs/Day Years Used Date Smoking Tobacco: Never Assessed Sex and Gender Information Value Date Recorded Sex Assigned at Not on file Legal Sex Male 4:11 PM CDT Gender Identity Not on file Sexual Orientation Not on file documented as of this encounter Miscellaneous Notes * Cerner Conversion Note - Historical ProviderMD - 03/08/2021 1:00 PM PERSONAL COMPUTER NETWORK ENGINEER Event Note Entered On: 03/08/2021 13:09 EST Performed On: 03/08/2021 13:00 EST by EARL CISNEROS RN Event Note Description of Event : Pt assisted to bathroom and helped with toileting and brief changed. EARL CISNEROS RN - 03/08/2021 13:08 EST documented in this encounter Plan of Treatment Upcoming Encounters Date Type Department Care Team (Late st Contact Info) Description 09/07/2024 9:00 AM EDT Appointment [facility] Outpatient Treatment [address] [place] [phone] documented as of this encounter Visit Diagnoses Not on filedocumented in this encounter Care Teams Tankman Relationship Specialty Start Date End Date Marcelino Mobley MD [address] [facility] [address] [place] [address] PCP - General Emergency Medicine 03/08/22 documented as of this encounter
--- OUTSIDE RECORDS SUMMARY | 2024-09-02 09:24 | XMS_ITS | Encounter Summary ---
Author Organization [facility] [facility] [employer] Address [address] [place] [address] Care Team Providers Care Narrow Fabric Loom Fixer Name Role Phone Marcelino Mobley MD Primary Care Provider [phone] Encounter Details Date Type Department Care Team (Late st Contact Info) Description 03/08/[address] [facility] [place] [facility] [place] [address] ProviderEphraim MD [address] [place] [address] [id number] Social History Tobacco Use Types Packs/Day Years Used Date Smoking Tobacco: Never Assessed Sex and Gender Information Value Date Recorded Sex Assigned at Not on file Legal Sex Male 4:11 PM CDT Gender Identity Not on file Sexual Orientation Not on file documented as of this encounter Miscellaneous Notes * Cerner Conversion Note - Historical ProviderMD - 03/08/2021 1:10 PM PARKING METER ATTENDANT Nursing Discharge Summary Entered On: 03/08/2021 13:17 EST Performed On: 03/08/2021 13:10 EST by EARL CISNEROS RN Discharge Documentation Discharge Date/Time : 03/08/2021 13:10 EST Patient Disposition, General : Discharge Discharge To : Home with ambulatory/outpatient follow-up Mode Of Departure, General Discharge : Wheelchair with adult Accompanied By, Discharge : Spouse IV Discontinued : Yes Personal Belongings With Patient : Yes Discharge Instructions Reviewed With, Opportunity For Questions Given : Patient Patient Education Completed : Yes Teaching Method : Explanation Teaching Evaluation : Verbalizes understanding EARL CISNEROS RN - 03/08/2021 13:17 EST documented in this encounter Plan of Treatment Upcoming Encounters Date Type Department Care Team (Late st Contact Info) Description 09/07/2024 9:00 AM EDT Appointment [facility] Outpatient Treatment [address] [place] [address] documented as of this encounter Visit Diagnoses Not on filedocumented in this encounter Care Teams Narrow Fabric Loom Fixer Relationship Specialty Start Date End Date Marcelino Mobley MD [address] [place] [address] PCP - General Emergency Medicine 03/08/22 documented as of this encounter
--- OUTSIDE RECORDS SUMMARY | 2024-09-02 09:24 | XMS_ITS | Encounter Summary ---
Author Organization [facility] [employer] [facility] [employer] Address [address] [place] [address] Care Team Providers Care Machine Slat Basket Maker Name Role Phone Marcelino Mobley MD Primary Care Provider [phone] Encounter Details Date Type Department Care Team (Late st Contact Info) Description 09/06/2021 Transcribed Document [facility] [place] [facility] [place] [address] ProviderEphraim MD [address] [place] [address] [phone] Social History Tobacco Use Types Packs/Day Years Used Date Smoking Tobacco: Never Assessed Sex and Gender Information Value Date Recorded Sex Assigned at Not on file Legal Sex Male 4:11 PM CDT Gender Identity Not on file Sexual Orientation Not on file documented as of this encounter Miscellaneous Notes * Fernando Conversion Note - Ephraim ProviderMD - 09/06/2021 7:27 AM CDT Pain Assessment Entered On: 09/06/2021 12:50 EDT Performed On: 09/06/2021 8:35 EDT by EARL CISNEROS RN Intervention Information: acetaminophen Performed by MALDONADO CHO RN on 09/06/2021 07:35:00 EDT acetaminophen,1000mg Oral Pain Assessment Pain Assessment : Follow-up assessment Pain Scale Used : 0-10 Scale EARL CISNEROS RN - 09/06/2021 12:50 EDT Pain Scale Intensity : 0 EARL CISNEROS RN - 09/06/2021 12:50 EDT Image 4 - Images currently included in the form version of this document have not been included in the text rendition version of the form. documented in this encounter Plan of Treatment Upcoming Encounters Date Type Department Care Team (Late st Contact Info) Description 09/07/2024 9:00 AM EDT Appointment [facility] Outpatient Treatment [address] [place] [address] documented as of this encounter Visit Diagnoses Not on filedocumented in this encounter Care Teams Machine Slat Basket Maker Relationship Specialty Start Date End Date Marcelino Mobley MD [address] [place] [address] PCP - General Emergency Medicine 03/08/22 documented as of this encounter
--- OUTSIDE RECORDS SUMMARY | 2024-09-02 09:25 | XMS_ITS | Continuity of Care Document ---
Author Organization [facility] Yanet savage [facility] Address [address] [place] [address] [place] [address] Care Team Providers Care Straightener Name Role Phone ANNA NOLASCO Primary Care [...] Organization Details Last Modified Time Details Appointments NEUROLOGY RECHECK 2024 08:30A M SHIVANI DUVAL DO Not available Not available Not available RECHECK 2024 02:00P M STACY PATEL MD Not available Not available Not available Lab culture, urine 2024 025 [email or web address] 4 [facility], [address] [place] [address], [address], 08/03/2024 19:18:11 urinalysi s panel, auto 2024 025 [email or web address] 4 [facility] [place] [facility], [address] [place] [address] [address], [place], [address], 07/29/2024 14:38:36 Referral None recorded. Procedures None recorded. Surgeries None recorded. Imaging None recorded. Medication Orders methenami ne hippurate 1 gram tablet 2024 025 [facility] [place], [address], 07/29/2024 14:38:43 silodosin 8 mg capsule 2024 025 [facility] [address] [place], [address], 07/29/2024 14:38:42 Patient TargetsNo targets recorded. Patient Instructions Encounter Date Encounter Id Patient Instructions Last Modified By Organization Details Last Modified Time 07/29/2024 [id number] - Drink more water every day; keep up the good work! - If symptoms like strong-smelling urine do not improve, or get worse, seek help. - continue taking prostate and UTI pills. - Remember the follow-up shot today. [email or web address] Not available 08/08/2024 15:19:40 Reason for Referral None Reported. Results Created Date Observation Date Name Description Value Unit Range Abnormal Flag Note LastModifiedBy Organization Detail LastModifiedTime 07/30/1907/29/2024 urina lysis panel , auto Unknown Analyte Clean Catch Not Available [facility] With [address], [place], [address], 07/29/2024 14:13:56 07/30/19 25 07/29/2024 urina lysis panel , auto Unknown Analyte Yellow Not Available [facility] With [address]kins, [place], [address], 07/29/2024 14:13:56 07/30/19 25 07/29/2024 urina lysis panel , auto Unknown Analyte Clear Not Available [facility] With [address]kins, [place], [address], 07/29/2024 14:13:56 07/30/19 25 07/29/2024 urina lysis panel , auto Unknown Analyte 1.015 Not Available [facility] With [address] [place], [address], 07/29/2024 14:13:56 07/30/19 25 07/29/2024 urina lysis panel , auto Unknown Analyte 1.003 - 1.030 Not Available [facility] With [address] [place], [address], 07/29/2024 14:13:56 07/30/19 25 07/29/2024 urina lysis panel , auto Unknown Analyte 5.0 Not Available [facility] With [address] [place], [address], 07/29/2024 14:13:56 07/30/19 25 07/29/2024 urina lysis panel , auto Unknown Analyte 5.0 - 8.0 Not Available [facility] With [address] [place], [address], 07/29/2024 14:13:56 07/30/19 25 07/29/2024 urina lysis panel , auto Unknown Analyte 500 Ade/uL Not Available [facility] With [address] [place], [address], 07/29/2024 14:13:56 07/30/19 25 07/29/2024 urina lysis panel , auto Unknown Analyte Negati ve Not Available [facility] With [address] [place], [address], 07/29/2024 14:13:56 07/30/19 25 07/29/2024 urina lysis panel , auto Unknown Analyte POSITI VE (Abnor mal) Not Available [facility] With [address] [place], [address], 07/29/2024 14:13:56 07/30/19 25 07/29/2024 urina lysis panel , auto Unknown Analyte Negati ve Not Available [facility] With [address]kins, [place], [address], 07/29/2024 14:13:56 07/30/19 25 07/29/2024 urina lysis panel , auto Unknown Analyte Trace Not Available [facility] With [address] [place], [address], 07/29/2024 14:13:56 07/30/19 25 07/29/2024 urina lysis panel , auto Unknown Analyte Negati ve Not Available [facility] With [address] [place], [address], 07/29/2024 14:13:56 07/30/19 25 07/29/2024 urina lysis panel , auto Unknown Analyte Normal Not Available [facility] With [address] [place], [address], 07/29/2024 14:13:56 07/30/19 25 07/29/2024 urina lysis panel , auto Unknown Analyte Normal Not Available [facility] With [address] [place], [address], 07/29/2024 14:13:56 07/30/19 25 07/29/2024 urina lysis panel , auto Unknown Analyte Negati ve Not Available [facility] With [address] [place], [address], 07/29/2024 14:13:56 07/30/19 25 07/29/2024 urina lysis panel , auto Unknown Analyte Negati ve Not Available [facility] With [address]kins, [place], [address], 07/29/2024 14:13:56 07/30/1907/29/2024 urina lysis panel , auto Unknown Analyte 1 mg/dL Not Available [facility] With [address] [place], [address], 07/29/2024 14:13:56 07/30/19 25 07/29/2024 urina lysis panel , auto Unknown Analyte Normal Not Available [facility] With [address] [place], [address], 07/29/2024 14:13:56 07/30/19 25 07/29/2024 urina lysis panel , auto Unknown Analyte Negati ve Not Available [facility] With [address] [place], [address], 07/29/2024 14:13:56 07/30/19 25 07/29/2024 urina lysis panel , auto Unknown Analyte Negati ve Not Available [facility] With [address] [place], [address], 07/29/2024 14:13:56 07/30/19 25 07/29/2024 urina lysis panel , auto Unknown Analyte Negati ve Not Available [facility] With [address] [place], [address], 07/29/2024 14:13:56 07/30/19 25 07/29/2024 urina lysis panel , auto Unknown Analyte Negati ve Not Available [facility] With [address] [place], [address], 07/29/2024 14:13:56 Result Notes None recorded. Problems Name Problem SNOMED Code Status Onset Date Resolution Date Notes Provider Name and Address Organization Details Recorded Time Nocturia 177054626 Active 2014 From Automated Load;Prov ider: Lobo, Stacy;St atus: Active Not Available [facility] 6 08:27:56 Lower urinary tract symptoms due to benign prostatic hypertrop hy 96153859423 101 Active 2014 From Automated Load;Prov ider: Lobo, Stacy;St atus: Active Not Available [facility] 6 08:27:56 Increased frequency of urination 599067798 Active 2014 From Automated Load;Prov ider: Lobo, Stacy;St atus: Active Not Available [facility] 6 08:27:56 Urge incontine nce of urine 80249690 Active 2015 From Automated Load;Prov ider: Lobo, Stacy;St atus: Active Not Available [facility] 6 08:27:56 Urgent desire to urinate 60820372 Active 2015 From Automated Load;Prov ider: Lobo, Stacy;St atus: Active Not Available [facility] 6 08:27:56 Multiple sclerosis 48343023 Active 2015 From Automated Load;Prov ider: Lobo, Stacy;St atus: Active Not Available [facility] 6 08:27:56 Weakness of left arm 48679914953 451820 [facility] 10:[facility]02 Edema 683848580 Active 2019 Mary davis [facility] 0 07:35:39 Weakness of left leg 59231015019 153757 [facility] 07:35:40 Problem Notes None recorded. Procedures Surgical History Date Name Laterality Status Provider Name and Address Organization Details Recorded Time 07/30/19 25 Lupron Administration completed Trish Rushing [facility] 07/29/2024 14:47:24 12/04/19 24 Lupron Administration completed Abrahan Almaguer [facility] 12/04/2023 18:14:34 05/29/19 24 Lupron Administration completed Abrahan Almaguer [facility] 05/29/2023 13:00:54 11/29/19 23 Lupron Administration completed Jacindaelene Tripp [facility] 11/28/2022 12:56:58 05/31/19 23 Eligard Administration completed [facility] 05/30/2022 14:30:56 05/23/19 22 [facility] 15:48:50 03/24/19 14 [facility]2018 13:37:26 03/24/18 56 Appendectomy completed [facility] 07/28/2018 13:37:18 Imaging Results None [...] oral route for 10 days, for uti. 08/20 completed Not Available Not Available Not Available [...] Available Ocrevus 30 mg/mL intraveno us solution Infuse 600 mg every 6 months for Multiple Sclerosi s (G35)pre -med with 500 mL bolus normal saline, 50 mg of benadryl IV or PO, 1000 mg Tylenol, and 500 mg solu-med rol. 2024 active Not Available Not Available Not Avai lable Vitals Date Recorded Body height Body mass index (BMI) Body weight Provider Name and Address Organization Details Last Updated DateTime 07/29/2024 175.26 cm 36.9 kg/m2 500075.09 g Trish Rushing [facility] 07/29/2024 14:13:34 Social History Question Answer Notes LastModified by Organizat ion Details LastModified Time Tobacco Smoking Status Current Some Day Smoker Beulah davis [facility] 07/28/2018 13:36:22 How Much Tobacco Do You Chew? None Information not available 07/28/2018 Which Illicit Or Recreational Drugs Have You Used? None Information not available 03/12/2019 Live Alone Or With Others? With Others Information not available 07/28/2018 Marital Status Informatio n not available 07/28/2018 What Was The Date Of Your Most Recent Tobacco Screening? 07/29/2024 [email or web address] Information not available 07/29/2024 What Is Your Relationship Status? [email or web address] Information not available 05/24/2021 Has Tobacco Cessation [...] N Anesthesia Complications N Genitourinary Disease N Chronic Kidney Disease N Radiation Therapy N Bladder or Kidney Problems Y Back Injury N High Cholesterol Y High PSA N Liver Disease N Nervous System Disorder N Organ Transplant N Dialysis N Allergies/Hayfever N False Teeth Y Chronic Obstructive Pulmonary Disease N Parkinson's Disease N Chemotherapy N Transplant N Anemia N Multiple Sclerosis Y Chest Pain N Back Pain N Proteinuria N Heart Attack (CT) N Mental Illness N Neurological Problems Y Ovarian Cancer N Diabetes Y Seizures/Epilepsy N Genitourinary problem(s) N Congestive Heart Failure (CHF) N Kidney Failure N Sleep Apnea N Bronchitis N Heart Disease N Hypertension Y Immunizations Vaccine Type Date Status Note Provider Nam e and Address Organization Details Recorded Time Influenza, split virus, quadrivalent, preservative 8 completed Murelene Tripp [facility] 05/01/2023 15:41:04 pneumococcal, unspecified formulation 7 completed Murelene Tripp [facility] 05/01/2023 15:41:04 Hep A, unspecified formulation 8 completed Murelene Tripp [facility] 12/04/2023 13:20:33 Influenza, split virus, quadrivalent, preservative 9 [facility] 15:41:04 Influenza, split virus, quadrivalent, preservative 0 completed [facility]23 15:41:04 SARS-COV-2 (COVID-19) vaccine, UNSPECIFIED 1 completed [facility] 12/04/2023 13:20:33 SARS-COV-2 (COVID-19) vaccine, UNSPECIFIED 1 completed Murelene Tripp [facility] 12/04/2023 13:20:33 Past Encounters Encounter ID Performer Location Encounter Start Date Encounter Closed Date Diagnosis/Indication Diagnosis SNOMED-CT Code Diagnosis ICD10 Code Diagnosis Note [id number] STACY PATEL MD [facility] [address] [facility],[address] [place] [address] 07/29/2024 13:58:47 07/29/2024 14:52:19 Urinary tract infectious disease 91312008 N39.0 - Send urine for culture. - Advise on increased fluid intake. Urinary incontinence 165 316870 R32 - Continue silodosin. - Monitor fluid intake. Malignant neoplasm of prostate 201414517 C61 - Maintain Lupron therapy. - PSA remains undetectab le. Health Concerns Section Related Observation LastModified by Organization Detai ls LastModified Time None Recorded Concern Status LastModified by Organization Details LastModified Time None Recorded Payers Encounter Date Sequence Insurance Name Policy Number Policy Munoz Covered Member ID Munoz Member ID Guarantor Name 07/29/2024 1 [place] David Chung [id number] Med Chung 07/29/2024 2 [employer] (MEDICARE SUPPLEMENT) Med Chung [id number] Med Chung Notes Date Note Type Note [...] and June 08, 2024). STACY PATEL MD [address] [place] [address], [address], [facility] 08/08/2024 15:20:06
--- OUTSIDE RECORDS SUMMARY | 2024-09-02 09:25 | XMS_ITS | Clinical Summary ---
Author Organization [facility] Address [address] [place] [address] Care Team Providers Care Building Maintenance Technician Name Role Phone Marcelino Mobley MD Primary Care Provider [phone] Allergies No known active allergies Medications alfuzosin (UROXATRAL) 10 mg 24 hr tablet alfuzosin ER 10 mg tablet,extended release 24 hr Active aspirin 81 MG EC tablet aspirin 81 mg tablet Daily Active atorvastatin (LIPITOR) 20 MG tablet atorvastatin 20 mg tablet Active bisoprolol (ZEBETA) 5 MG tablet bisoprolol fumarate 5 mg tablet Active cyanocobalamin, vitamin B-12, 500 MCG tablet cyanocobalamin (vit B-12) 500 mcg tablet Daily Active gabapentin (NEURONTIN) 100 MG capsule gabapentin 100 mg capsule Active metFORMIN (GLUCOPHAGE) 1000 MG tablet 500 mg, Oral, Daily, 0 Refill(s) 03/08/20 21 Active ocrelizumab (Ocrevus) 30 mg/mL injection Ocrevus 30 mg/mL intravenous solution Infuse 600 mg every 6 months for Multiple Sclerosis (G35), pre-med with 500 mL bolus normal saline, 50 mg of benadryl IV or PO, 1000 mg Tylenol, and 500 mg solu-medrol. Active oxybutynin (DITROPAN-XL) 10 MG 24 hr tablet daily. Active Lactobacillus acidophilus (Probiotic) 10 billion cell Cap Probiotic Active trospium (SANCTURA) 20 mg tablet trospium 20 mg tablet Active vitamin A-vit C-vit E-zinc-Cu Tab Vision-Bahman Preserve tablet Take by oral route. Active omega-3s/dha/ep a/fish oil/D3 (VITAMIN-D + OMEGA-3 ORAL) Vitamin D Active vitamin E, dl,tocopheryl acet, (vitamin E, dl, acetate,) 45 mg (100 unit) Cap Take 1,000 Units by mouth. Active docusate sodium (COLACE) 250 MG capsule Take 250 mg by mouth. 06/10/19 Active furosemide (LASIX) 40 MG tablet Take 40 mg by mouth. Active HYDROcodone-mya taminophen (NORCO 7.5-325) 7.5-325 mg per tablet Take 1-2 tablets by mouth. 06/10/19 Active mirabegron (Myrbetriq) 25 mg Tb24 ER tablet Take 25 mg by mouth. Active simvastatin (ZOCOR) 40 MG tablet Take 40 mg by mouth. Active tamsulosin (FLOMAX) 0.4 mg Cap 24 hr capsule Take 0.4 mg by mouth. Active leuprolide acetate (ELIGARD, 6 MONTH, SUBQ) Eligard (6 month) Active solifenacin (VESIcare) 10 MG tablet Take 0.5 tablets (5 mg total) by mouth daily. Active famotidine (PEPCID) 20 MG tablet Take 1 tablet (20 mg total) by mouth daily as needed for Heartburn. Active Active Problems Problem Noted Date Diagnosed Date Multiple sclerosis, relapsing-remitting 03/08/20 Social History Tobacco Use Types Packs/Day Years Used Date Smoking Tobacco: Some Days Cigarettes Cigars Smokeless Tobacco: Never Tobacco Cessation:Ready to Q uit: Not Asked; Counseling Given: Not Answered Alcohol Use Standard Drinks/Week Comments Never 0 (1 standard drink = 0.6 oz pur e alcohol) Interpersonal Safety Answer Date Record ed Family or friends hurt you Not on file 04/04 Family or friends insult you Not on file 02/2024 Family or friends threaten you Not on file 0 04/04/2023 Family or friends scream or curse at you Not on file 04/04/2023 Housing Stability Answer Date Recorded Living situation today Not on file Living situation problems Not on file 2023 Family and Community Support Answer Krishan e Recorded Help with Day to Day Activities Not on file 04/04/2023 Feeling Lonely or Isolated Not on file 04/04 Educational Attainment Answer Date El rded Speak language other than Belarusian at home Not on file 04/04/2023 Want help with school or training Not on file 04/04/2023 Depression Answer Date Recorded PHQ-2 Risk Not on file 04/04/2023 Disabilities Answer Date Recorded Difficulty concentrating Not on file 024 Difficulty doing errands alone Not on file 0 04/04/2023 Substance Use Answer Date Recorded Used prescription meds for non-medical reasons N ot on file 04/04/2023 Used illegal drugs past 12 months Not on file 04/04/2023 Sex and Gender Information Value Date Recorded Sex Assigned at Not on file Legal Sex Male 4:11 PM CDT Gender Identity Not on file Sexual Orientation Not on file Last Filed Vital Signs Vital Sign Reading Time Taken Comments Blood Pressure 148/78 03/09/2024 12:00 PM EST Pulse 63 03/09/2024 12:00 PM EST Temperature 36.7 C (98 F) 09/06/2022 7:26 AM EDT Respiratory Rate 17 03/09/2024 12:00 PM EST Oxygen Saturation 96% 03/09/2024 12:00 PM EST Inhaled Oxygen Concentration - - Weight 113.4 kg (250 lb) 03/09/2024 7:58 AM EST Height 175.3 cm (5' 9 ) 09/08/2023 6:57 AM EDT Body Mass Index 36.92 09/08/2023 6:57 AM EDT Plan of Treatment Upcoming Encounters Date Type Department Care Team (Late st Contact Info) Description 09/07/2024 9:00 AM EDT [facility]ointment [facility] [address] [place] [address] Health Maintenance Due Date Last Done Comments Depression Screening (12+) 1957 Tobacco Cessation Counseling and Screening (12+) 1957 Hepatitis C Screening 02/08/1964 DTAP/TDAP/TD VACCINES (1 - Tdap) 1965 Pneumococcal 50+ years (1 of 2 - PCV) 1965 Medicare Initial AWV [id number] 09/22/2013 Shingles Vaccine (Zoster) (2 of 2) 03/01/20192018 Respiratory Syncytial Virus (RSV) Adult or (1 - 1-dose 75+ series) 2021 COVID-19 VACCINE (2023-2 5 season) 2023 10/04/2021, 12/21/2020, 06/20/2020, Additional history exists Falls Risk Screening 03/24/2024 Influenza Vaccine (Season Ended) 2024 01/25/2022, 01/10/2020, 01/05/2020, Additional history exists Insurance MEDICARE PART A B [employer] CLAIMS Care Teams Building Maintenance Technician Relationship Specialty Start Date End Date Marcelino Mobley MD [address] [place] [address] PCP - General Emergency Medicine 03/08/22
--- OUTSIDE RECORDS SUMMARY | 2024-09-02 09:25 | XMS_ITS | Referral Summary ---
Author Organization [facility] Address [address] [place] [address] Care Team Providers Care Lithograph Press Operator Tinware Name Role Phone Marcelino Mobley MD Primary Care Provider [phone] Allergies No known active allergies Medications alfuzosin [...] Date El rded Speak language other than Russian at home Not on file 04/04/2023 Want [...] Info) Description 09/07/2024 9:00 AM EDT Appointment [facility] [address] [place] [address] Insurance MEDICARE PART A B [facility] Care Teams Lithograph Press Operator Tinware Relationship Specialty Start Date End Date Marcelino Mobley MD [address] [place] [address] PCP - General Emergency Medicine 03/08/22
--- OUTSIDE RECORDS SUMMARY | 2024-09-02 09:26 | XMS_ITS | Data Portability ---
Author Organization CLAUDETTE KATHIE Mancilla [place] [facility] Address [address] [facility] [facility] [place] [address] Care Team Providers Care Financial Coach Name Role Phone NICK NOLASCO Primary Care [...] He is scheduled for Ocrevus infusion at [facility] outpatient on September 07 per 's report 3. follow up with me in 6 months [address] Jennifer Saab in [place] [email or web address] Not available 08/26/2023 09:21:23 10/16/2023 10/16/2023 Urine for culture and sensitivity. Antifungal/ster oid cream for jock itch. [email or web address] Not available 11/02/2023 15:23:50 12/04/2023 12/04/2023 Urine for culture and sensitivity Antifungal/ster oid cream for jock itch, improved not resolved Androgen deprivation therapy for prostate carcinoma Methenamine for UTI suppression. [email or web address] Not available 12/04/2023 19:36:35 02/24/2024 02/24/2024 1. Multiple sclerosis 2. Disabled adult 3. Disabled walking, uses walker 4. Spastic paraparesis gait 5. Needs assist for some personal care 6. shelter current drug therapy on Ocrevus 7. High risk medication, monitoring needed for safety Plan 1. Submit blood tests CBC, CMP, IgG today or tomorrow in our lab 2. Ocrevus is scheduled Mar 08 or 3. I will call with blood test results 4. I advised I retire Apr 23 5. Follow up in [address] Tiarra Pratt Not available 02/24/2024 13:30:01 07/29/2024 07/29/2024 - [...] Time Details Appointments NEUROLOGY RECHECK 2024 08:30A Mellissa PRATT DO Not available Not available Not available RECHECK 2024 02:00P Mellsisa DIAMOND MD Not available Not available Not available Lab culture, urine 2024 025 [email or web address] 4 [facility], [address] [place] [address], [address], 08/03/2024 19:18:11 urinalysi s panel, auto 2024 025 4 [facility] [place] Extended Services With [facility], [address] [place] [address] Dr Wilkins, [place], [address], 07/29/2024 14:38:36 CBC w/ auto diff 2023 024 [facility], [address] [place] [address], [id number], 02/24/2024 12:27:49 CMP, serum or plasma 2023 024 [facility], [address] [place] [address], [address], 02/24/2024 11:55:24 igg, quantitat rani, serum 2023 024 [facility], [address] [place] [address], [address], 02/24/2024 11:55:21 urinalysi s panel, auto 2023 [email or web address] [place] [address] Extended Services With [address] Wilkins, [place], [address], 12/05/2023 13:50:22 culture, urine 2023 [email or web address] [place] [address] Laboratory, [address] [place] [address], [address], 12/05/2023 13:50:22 urinalysi s panel, auto 2023 [email or web address] [place] [address] Extended Services With [address] Wilkins, [place], [address], 10/16/2023 15:13:59 culture, urine 2023 [email or web address] [place] [address] Laboratory, [address] [place] [address], [address], 10/26/2023 12:36:11 Referral None recorded. Procedures None recorded. Surgeries None recorded. Imaging None recorded. Medication Orders methenami ne hippurate 1 gram tablet 2024 025 [facility] [address], [address] [employer] [place], [address], 07/29/2024 14:38:43 silodosin 8 mg capsule 2024 025 [facility] [address], [address] [employer] [place], [address], 07/29/2024 14:38:42 methenami ne hippurate 1 gram tablet [address], [address] [place] [address], [id number], 02/24/2024 08:16:51 clotrimaz ole-betam ethasone 1 %-0.05 % topical cream 2023 024 [place] [address], [address] [place] [address], [id number], 02/24/2024 08:18:51 Diflucan 150 mg tablet 2023 024 [place] [address], [address] [place] [address], [address], 02/24/2024 08:18:55 silodosin 8 mg capsule 2023 024 [email or web address] 4 [place] [address], [address] [place] [address], [address], 12/05/2023 13:50:22 clotrimaz ole-betam ethasone 1 %-0.05 % topical cream 2023 024 [place] [address], [address] [place] [address], [address], 02/24/2024 08:14:59 silodosin 8 mg capsule 2023 024 [place] [address], [address] [place] [address], [address], 10/16/2023 15:21:57 Patient TargetsNo targets recorded. Patient Instructions Encounter Date Encounter Id Patient Instructions Last Modified By Organization Details Last Modified Time 08/26/2023 [id number] CATEGORY DESCRIPTION MINUTES Prepare to see the patient (e.g. review of tests) review past med records, review 2022 lab results 5 Obtain/review separately obtained history Perform medically appropriate exam/evaluation Order medications, tests, or procedures will mail lab requisition to patient to complete in her local hospital outpatient services 5 Tug Hand/educate the patient/family/car egiver Telehealth connection for 11 minutes 10 Refer/communicate w/other healthcare professionals Document clinical information into health record 5 Non-billable independent interp of results Non-billable care coordination TOTAL TIME 25 [id number] (15-29) 52310 (30-44) 18897 (45-59) 01509 (60-74) 26570 (10-19) 55119 (20-29) 15097 (30-39) 01424 (40-54) [email or web address] Not available 08/26/2023 09:03:40 12/04/2023 [id number] learning about healthy weight [email or web address] Not available 12/04/2023 13:49:18 07/29/2024 [id number] - Drink more augustus er every day; keep up the good work! - If symptoms like strong-smelling urine do not improve, or get worse, seek help. - continue taking prostate and UTI pills. - Remember the follow-up shot today. [email or web address] Not available 08/08/2024 15:19:40 Reason for Referral None Reported. Results Created Date Observation Date Name Description Value Unit Range Abnormal Flag Note LastModifiedBy Organization Detail LastModifiedTime 10/16/19 24 10/16/2023 URINE CULTU RE enterococcus faecalis Organi sm: Entero coccus faecal is Not Available [facility] [address] [place], [address], 10/20/2023 10:51:39 10/16/19 24 10/20/2023 URINE CULTU RE urine culture abnormal ISOLA TE #1 COLON Y COUNT : > 100,0 00 CFU/M L Proba ble Strep tococ cus sp.; ID and sensi tivit y in progr ess. Enter ococc us faeca lis Not Available [facility] [address] [place], [address], 10/20/2023 10:51:39 10/16/19 24 10/20/2023 URINE CULTU RE ampicillin <=2 ug/mL susceptib le Not Available [facility] [address] [place], [address], 10/20/2023 10:51:39 10/16/19 24 10/20/2023 URINE CULTU RE ciprofloxaci n >2 ug/mL resistant Not Available [facility] [address] [place] [address], [address], 10/20/2023 10:51:39 10/16/19 24 10/20/2023 URINE CULTU RE levofloxacin >4 ug/mL resistant Not Available [facility] [address] [place] [address], [address], 10/20/2023 10:51:39 10/16/19 24 10/20/2023 URINE CULTU RE nitrofuranto in <=32 ug/mL susceptib le Not Available [facility] [address] [place] [address], [address], 10/20/2023 10:51:39 10/16/19 24 10/20/2023 URINE CULTU RE penicillin 2 ug/mL susceptib le Not Available [facility] [address] [place] [address], [address], 10/20/2023 10:51:39 10/16/19 24 10/20/2023 URINE CULTU RE rifampin 2 ug/mL intermedi ate Not Available [facility] [address] [place] [address], [address], 10/20/2023 10:51:39 10/16/19 24 10/20/2023 URINE CULTU RE tetracycline >8 ug/mL resistant Not Available [facility] [address] [place] [address], [address], 10/20/2023 10:51:39 10/16/19 24 10/20/2023 URINE CULTU RE vancomycin 1 ug/mL susceptib le Not Available [facility] [address] [place] [address], [address], 10/20/2023 10:51:39 10/16/19 24 10/16/2023 urina lysis panel , auto Unknown Analyte Clean Catch Not Available [facility] Extended Services With [address] Wilkins, [place], [address], 10/16/2023 15:07:53 10/16/19 24 10/16/2023 urina lysis panel , auto Unknown Analyte Yellow Not Available [facility] Extended Services With [address] [place], [address], 10/16/2023 15:07:53 10/16/19 24 10/16/2023 urina lysis panel , auto Unknown Analyte Cloudy Not Available [facility] Extended Services With [address] [place], [address], 10/16/2023 15:07:53 10/16/19 24 10/16/2023 urina lysis panel , auto Unknown Analyte 1.015 Not Available [facility] Extended Services With [address] [place], [address], 10/16/2023 15:07:53 10/16/19 24 10/16/2023 urina lysis panel , auto Unknown Analyte 1.003- 1.035 Not Available [facility] Extended Services With [address] [place], [address], 10/16/2023 15:07:53 10/16/19 24 10/16/2023 urina lysis panel , auto Unknown Analyte 6.0 Not Available [facility] Extended Services With [address] [place], [address], 10/16/2023 15:07:53 10/16/19 24 10/16/2023 urina lysis panel , auto Unknown Analyte 5.0-8. 0 Not Available [facility] Extended Services With [address] [place], [address], 10/16/2023 15:07:53 10/16/19 24 10/16/2023 urina lysis panel , auto Unknown Analyte 500 Ade/ul (++) Not Available [facility] Extended Services With [address] Wilkins, [place], [address], 10/16/2023 15:07:53 10/16/19 24 10/16/2023 urina lysis panel , auto Unknown Analyte Negati ve Not Available [facility] Extended Services With [address] Wilkins, [place], [address], 10/16/2023 15:07:53 10/16/19 24 10/16/2023 urina lysis panel , auto Unknown Analyte Negati ve Not Available [facility] Extended Services With [address] [place], [address], 10/16/2023 15:07:53 10/16/19 24 10/16/2023 urina lysis panel , auto Unknown Analyte Negati ve Not Available [facility] Extended Services With [address] Wilkins, [place], [address], 10/16/2023 15:07:53 10/16/19 24 10/16/2023 urina lysis panel , auto Unknown Analyte Negati ve Not Available [facility] Extended Services With [address] [place], [address], 10/16/2023 15:07:53 10/16/19 24 10/16/2023 urina lysis panel , auto Unknown Analyte Negati ve Not Available [facility] Extended Services With [address] [place], [address], 10/16/2023 15:07:53 10/16/19 24 10/16/2023 urina lysis panel , auto Unknown Analyte Normal Not Available [facility] Extended Services With [address] [place], [address], 10/16/2023 15:07:53 10/16/19 24 10/16/2023 urina lysis panel , auto Unknown Analyte Normal Not Available [facility] Extended Services With [address] [place], [address], 10/16/2023 15:07:53 10/16/19 24 10/16/2023 urina lysis panel , auto Unknown Analyte Negati ve Not Available [facility] Extended Services With [address] [place], [address], 10/16/2023 15:07:53 10/16/19 24 10/16/2023 urina lysis panel , auto Unknown Analyte Negati ve Not Available [facility] Extended Services With [address] [place], [address], 10/16/2023 15:07:53 10/16/19 24 10/16/2023 urina lysis panel , auto Unknown Analyte 1 mg/dl Not Available [facility] Extended Services With [address] [place], [address], 10/16/2023 15:07:53 10/16/19 24 10/16/2023 urina lysis panel , auto Unknown Analyte Normal 1 mg/dl Not Available [facility] Extended Services With [address] [place], [address], 10/16/2023 15:07:53 10/16/19 24 10/16/2023 urina lysis panel , auto Unknown Analyte Negati ve Not Available [facility] Extended Services With [address] [place], [address], 10/16/2023 15:07:53 10/16/19 24 10/16/2023 urina lysis panel , auto Unknown Analyte Negati ve Not Available [facility] Extended Services With [address] Wilkins, [place], [address], 10/16/2023 15:07:53 10/16/19 24 10/16/2023 urina lysis panel , auto Unknown Analyte 50 Russell/ul Not Available [facility] Extended Services With [address] Wilkins, [place], [address], 10/16/2023 15:07:53 10/16/19 24 10/16/2023 urina lysis panel , auto Unknown Analyte Negati ve Not Available [facility] Extended Services With [address] Wilkins, [place], [address], 10/16/2023 15:07:53 12/04/19 24 12/04/2023 URINE CULTU RE klebsiella pneumoniae Organi sm: Klebsi pedro pneumo niae Not Available [facility] [address] [place], [address], 12/08/2023 08:01:35 12/04/19 24 12/06/2023 URINE CULTU RE urine culture abnormal ISOLA TE #1 COLON Y COUNT : > 100,0 00 CFU/M L Proba ble Gram Negat rani Bacil lu. ID and sensi tivit y in progr ess. See [place] te Resul t(s) Below Klebs iella pneum oniae Not Available [facility] [address] [place], [address], 12/08/2023 08:01:35 12/04/19 24 12/06/2023 URINE CULTU RE amox/K clav'ate(C) <=8/4 ug/mL susceptib le Not Available [facility] [address] [place], [address], 12/08/2023 08:01:35 09/12/20 24 12/06/2023 URINE CULTU RE cefazolin <=2 ug/mL susceptib le Not Available [facility] [address] [place] [address], [address], 12/08/2023 08:01:35 12/04/19 24 12/06/2023 URINE CULTU RE ceftazidime <=1 ug/mL susceptib le Not Available [facility] [address] [place] [address], [address], 12/08/2023 08:01:35 12/04/19 24 12/06/2023 URINE CULTU RE ceftriaxone <=1 ug/mL susceptib le Not Available [facility] [address] [place] [address], [address], 12/08/2023 08:01:35 12/04/19 24 12/06/2023 URINE CULTU RE cefuroxime <=4 ug/mL susceptib le Not Available [facility] [address] [place] [address], [address], 12/08/2023 08:01:35 12/04/19 24 12/06/2023 URINE CULTU RE ciprofloxaci n <=0.25 ug/mL susceptib le Not Available [facility] [address] [place] [address], [address], 12/08/2023 08:01:35 12/04/19 24 12/06/2023 URINE CULTU RE gentamicin <=4 ug/mL susceptib le Not Available [facility] [address] [place] [address], [address], 12/08/2023 08:01:35 12/04/19 24 12/06/2023 URINE CULTU RE imipenem <=1 ug/mL susceptib le Not Available [facility] [address] [place] [address], [address], 12/08/2023 08:01:35 12/04/19 24 12/06/2023 URINE CULTU RE levofloxacin <=0.5 ug/mL susceptib le Not Available [facility] [address] [place] [address], [address], 12/08/2023 08:01:35 12/04/19 24 12/06/2023 URINE CULTU RE nitrofuranto in 64 ug/mL intermedi ate Not Available [facility] [address] [place] [address], [address], 12/08/2023 08:01:35 12/04/19 24 12/06/2023 URINE CULTU RE piperacillin /alex <=16 ug/mL susceptib le Not Available [facility] [address] [place] [address], [address], 12/08/2023 08:01:35 12/04/19 24 12/06/2023 URINE CULTU RE tetracycline <=4 ug/mL susceptib le Not Available [facility] [address] [place] [address], [address], 12/08/2023 08:01:35 12/04/19 24 12/06/2023 URINE CULTU RE tobramycin <=2 ug/mL susceptib le Not Available [facility] [address] [place] [address], [address], 12/08/2023 08:01:35 12/04/19 24 12/06/2023 URINE CULTU RE trimeth/sulf a <=2/38 ug/mL susceptib le Not Available [facility] [address] [place] [address], [address], 12/08/2023 08:01:35 12/04/19 24 12/04/2023 urina lysis panel , auto Unknown Analyte Clean Catch Not Available [facility] [place] Extended Services With [address] Wilkins, [place], [address], 12/04/2023 12:12:20 12/04/19 24 12/04/2023 urina lysis panel , auto Unknown Analyte Yellow Not Available [facility] Extended Services With [address] Wilkins, [place], [address], 12/04/2023 12:12:20 12/04/19 24 12/04/2023 urina lysis panel , auto Unknown Analyte Cloudy Not Available [facility] Extended Services With [address] [place], [address], 12/04/2023 12:12:20 12/04/19 24 12/04/2023 urina lysis panel , auto Unknown Analyte 1.020 Not Available [facility] Extended Services With [address] [place], [address], 12/04/2023 12:12:20 12/04/19 24 12/04/2023 urina lysis panel , auto Unknown Analyte 1.003- 1.035 Not Available [facility] Extended Services With [address] [place]kins, [place], [address], 12/04/2023 12:12:20 12/04/19 24 12/04/2023 urina lysis panel , auto Unknown Analyte 5.0 Not Available [facility] Extended Services With [address] [place], [address], 12/04/2023 12:12:20 12/04/19 24 12/04/2023 urina lysis panel , auto Unknown Analyte 5.0-8. 0 Not Available [facility] Extended Services With [address] [place], [address], 12/04/2023 12:12:20 12/04/19 24 12/04/2023 urina lysis panel , auto Unknown Analyte 500 Ade/ul (++) Not Available [facility] Extended Services With [address] [place], [address], 12/04/2023 12:12:20 12/04/19 24 12/04/2023 urina lysis panel , auto Unknown Analyte Negati ve Not Available [facility] Extended Services With [address]kins, [place], [address], 12/04/2023 12:12:20 12/04/19 24 12/04/2023 urina lysis panel , auto Unknown Analyte POSITI VE (Abnor mal) Not Available [facility] Extended Services With [address] [place], [address], 12/04/2023 12:12:20 12/04/19 24 12/04/2023 urina lysis panel , auto Unknown Analyte Negati ve Not Available [facility] Extended Services With [address] [place], [address], 12/04/2023 12:12:20 12/04/19 24 12/04/2023 urina lysis panel , auto Unknown Analyte Negati ve Not Available [facility] Extended Services With [address] [place], [address], 12/04/2023 12:12:20 12/04/19 24 12/04/2023 urina lysis panel , auto Unknown Analyte Negati ve Not Available [facility] Extended Services With [address] [place], [address], 12/04/2023 12:12:20 12/04/19 24 12/04/2023 urina lysis panel , auto Unknown Analyte Normal Not Available [facility] Extended Services With [address] [place], [address], 12/04/2023 12:12:20 12/04/19 24 12/04/2023 urina lysis panel , auto Unknown Analyte Normal Not Available [facility] Extended Services With [address] [place], [address], 12/04/2023 12:12:20 12/04/19 24 12/04/2023 urina lysis panel , auto Unknown Analyte Negati ve Not Available [facility] Extended Services With [address] [place], [address], 12/04/2023 12:12:20 12/04/19 24 12/04/2023 urina lysis panel , auto Unknown Analyte Negati ve Not Available [facility] Extended Services With [address] [place], [address], 12/04/2023 12:12:20 12/04/19 24 12/04/2023 urina lysis panel , auto Unknown Analyte Normal Not Available [facility] Extended Services With [address] [place], [address], 12/04/2023 12:12:20 12/04/1912/04/2023 urina lysis panel , auto Unknown Analyte Normal 1 mg/dl Not Available [facility] Extended Services With [address] [place], [address], 12/04/2023 12:12:20 12/04/19 24 12/04/2023 urina lysis panel , auto Unknown Analyte Negati ve Not Available [facility] Extended Services With [address] [place], [address], 12/04/2023 12:12:20 12/04/19 24 12/04/2023 urina lysis panel , auto Unknown Analyte Negati ve Not Available [facility] Extended Services With [address] [place], [address], 12/04/2023 12:12:20 12/04/19 24 12/04/2023 urina lysis panel , auto Unknown Analyte Negati ve Not Available [facility] [place] Extended Services With [address], [place], [address], 12/04/2023 12:12:20 12/04/19 24 12/04/2023 urina lysis panel , auto Unknown Analyte Negati ve Not Available [facility] Extended Services With [address], [place], [address], 12/04/2023 12:12:20 02/24/20 24 02/24/2024 IGG IgG 768 mg/dL 700-16 00 normal Not Available [facility] [address] [place] [address], [address], 02/24/2024 11:55:21 02/24/20 24 02/24/2024 COMP. METAB OLIC PANEL glucose 144 mg/dL 74-100 high Not Available [facility] [address] [place] [address], [address], 02/24/2024 11:55:23 02/24/20 24 02/24/2024 COMP. METAB OLIC PANEL blood urea nitrogen 17 mg/dL 6-20 normal Not Available [facility] [address] [place] [address], [address], 02/24/2024 11:55:23 02/24/20 24 02/24/2024 COMP. METAB OLIC PANEL creatinine 0.94 mg/dL 0.70-1 .28 normal Not Available [facility] [address] [place] [address], [address], 02/24/2024 11:55:23 02/24/20 24 02/24/2024 COMP. METAB OLIC PANEL BUN/creatini ne ratio 18 (calc ) 10-20 normal Not Available [facility] [address] [place] [address], [address], 02/24/2024 11:55:23 02/24/20 24 02/24/2024 COMP. METAB OLIC PANEL sodium 132 mmol/ L 136-14 5 low Not Available [facility] [address] [place] [address], [address], 02/24/2024 11:55:23 02/24/20 24 02/24/2024 COMP. METAB OLIC PANEL potassium 4.3 mmol/ L 3.4-5. 0 normal Not Available [facility] [address] [place] [address], [address], 02/24/2024 11:55:23 02/24/20 24 02/24/2024 COMP. METAB OLIC PANEL chloride 99 mmol/ L 98-107 normal Not Available [facility] [address] [place] [address], [address], 02/24/2024 11:55:23 02/24/20 24 02/24/2024 COMP. METAB OLIC PANEL carbon dioxide 24 mmol/ L 22-31 normal Not Available [facility] [address] [place] [address], [address], 02/24/2024 11:55:23 02/24/20 24 02/24/2024 COMP. METAB OLIC PANEL anion gap 9 (calc ) 7-25 normal Not Available [facility] [address] [place] [address], [address], 02/24/2024 11:55:23 02/24/20 24 02/24/2024 COMP. METAB OLIC PANEL calcium 9.0 mg/dL 8.6-10 .2 normal Not Available [facility] [address] [place] [address], [address], 02/24/2024 11:55:23 02/24/20 24 02/24/2024 COMP. METAB OLIC PANEL total protein 6.4 g/dL 6.4-8. 3 normal Not Available [facility] [address] [place] [address], [address], 02/24/2024 11:55:23 02/24/20 24 02/24/2024 COMP. METAB OLIC PANEL albumin 3.6 g/dL 3.5-5. 2 normal Not Available [facility] [address] [place] [address], [address], 02/24/2024 11:55:23 02/24/20 24 02/24/2024 COMP. METAB OLIC PANEL globulin 2.8 1.5-4. 5 normal Not Available [facility] [address] [place] [address], [address], 02/24/2024 11:55:23 02/24/20 24 02/24/2024 COMP. METAB OLIC PANEL albumin/glob ulin ratio 1.3 (calc ) 1.1-2. 5 normal Not Available [facility] [facility] [address] [place] [address], [address], 02/24/2024 11:55:23 02/24/20 24 02/24/2024 COMP. METAB OLIC PANEL bilirubin, total 0.7 mg/dL 0.1-1. 2 normal Not Available [facility] [address] [place] [address], [address], 02/24/2024 11:55:23 02/24/20 24 02/24/2024 COMP. METAB OLIC PANEL alkaline phosphatase 144 U/L 40-129 high Not Available [facility] [address] [place] [address], [address], 02/24/2024 11:55:23 02/24/20 24 02/24/2024 COMP. METAB OLIC PANEL AST 12 U/L 0-40 normal Not Available [facility] [address] [place] [address], [address], 02/24/2024 11:55:23 02/24/20 24 02/24/2024 COMP. METAB OLIC PANEL ALT 20 U/L 0-41 normal Not Available [facility] [address] [place], [address], 02/24/2024 11:55:23 02/24/20 24 02/24/2024 COMP. METAB OLIC PANEL GFR 83 >= 60 normal NOT E New calcu latio n for GFR (CKD- EPI 2020) is formu lated witho ut race adjus tment facto rs at the recom menda tion of the [facility] [employer] [facility] and [facility]va[facility] Mandele ty of Nephr ology . This calcu latio n has not been valid ated in pregn ant women . For pedia tric patie nts refer to https ://uma mora.rachna santo.o carlos/lux sidhu s/KARINA QI/gf r_cal culat orPed Not Available [facility] [address] [place] [address], [address], 02/24/2024 11:55:23 02/24/20 24 02/24/2024 COMPL ETE BLOOD COUNT white blood cells 9.6 10*3/ uL 3.8-10 .8 normal RESUL TS RECHE CKED Hemog mer obtai heather after warmi ng to 37 C. No moscoso e. Not Available [facility] [address] [place], [address], 02/24/2024 12:27:49 02/24/20 24 02/24/2024 COMPL ETE BLOOD COUNT red blood cells 4.24 10*6/ uL 4.20-5 .80 normal Not Available [facility] [address] [place], [address], 02/24/2024 12:27:49 02/24/20 24 02/24/2024 COMPL ETE BLOOD COUNT hemoglobin 12.4 g/dL 14.0-1 8.0 low Not Available [facility] [address] [place] [address], [address], 02/24/2024 12:27:49 02/24/20 24 02/24/2024 COMPL ETE BLOOD COUNT hematocrit 36.3 % 40.0-5 2.0 low Not Available [facility] [address] [place] [address], [address], 02/24/2024 12:27:49 02/24/20 24 02/24/2024 COMPL ETE BLOOD COUNT MCV 86 fL 80-100 normal Not Available [facility] [address] [place] [address], [address], 02/24/2024 12:27:49 02/24/20 24 02/24/2024 COMPL ETE BLOOD COUNT MCH 29 pg 26-35 normal Not Available [facility] [address] [place] [address], [address], 02/24/2024 12:27:49 02/24/20 24 02/24/2024 COMPL ETE BLOOD COUNT MCHC 34 g/dL 32-36 normal Not Available [facility] [address] [place] [address], [address], 02/24/2024 12:27:49 02/24/20 24 02/24/2024 COMPL ETE BLOOD COUNT RDW 15.1 % 11.0-1 5.0 high Not Available [facility] [address] [place] [address], [address], 02/24/2024 12:27:49 02/24/20 24 02/24/2024 COMPL ETE BLOOD COUNT MPV - fL 6.2-10 .5 abnormal Unabl e to obtai n instr ument MPV. Not Available [facility] [address] [place] [address], [address], 02/24/2024 12:27:49 02/24/20 24 02/24/2024 COMPL ETE BLOOD COUNT platelet count - 10*3/ uL 150-40 0 abnormal Unabl e to repor t instr ument plate let count due to plate let aggre gatio n in EDTA. Plate lets appea r: CLUMP ED If recol lecti on is lucia ed - pleas e order test code CPLT. Not Available [facility] [address] [place] [address], [address], 02/24/2024 12:27:49 02/24/20 24 02/24/2024 COMPL ETE BLOOD COUNT neutrophil,a bsolute 5.4 10*3/ uL 1.6-8. 4 normal Not Available [facility] [address] [place] [address], [address], 02/24/2024 12:27:49 02/24/20 24 02/24/2024 COMPL ETE BLOOD COUNT lymphocyte,a bsolute 2.7 10*3/ uL 0.4-5. 1 normal Not Available [facility] [address] [place] [address], [address], 02/24/2024 12:27:49 02/24/20 24 02/24/2024 COMPL ETE BLOOD COUNT monocyte,abs olute 0.6 10*3/ uL 0.0-1. 2 normal Not Available [facility] [address] [place] [address], [address], 02/24/2024 12:27:49 02/24/20 24 02/24/2024 COMPL ETE BLOOD COUNT eosinophil,a bsolute 0.7 10*3/ uL 0.0-0. 8 normal Not Available [facility] [address] [place] [address], [address], 02/24/2024 12:27:49 02/24/20 24 02/24/2024 COMPL ETE BLOOD COUNT basophil,abs olute 0.1 10*3/ uL 0.0-0. 3 normal Not Available [facility] [address] [place] [address], [address], 02/24/2024 12:27:49 02/24/20 24 02/24/2024 COMPL ETE BLOOD COUNT % neutrophils 56.8 % 42.0-7 8.0 normal Not Available [facility] [address] [place] [address], [address], 02/24/2024 12:27:49 02/24/20 24 02/24/2024 COMPL ETE BLOOD COUNT % lymphocytes 28.7 % 11.0-4 7.0 normal Not Available [facility] [address] [place] [address], [address], 02/24/2024 12:27:49 02/24/20 24 02/24/2024 COMPL ETE BLOOD COUNT % monocytes 6.0 % 0.0-11 .0 normal Not Available [facility] [address] [place] [address], [address], 02/24/2024 12:27:49 02/24/20 24 02/24/2024 COMPL ETE BLOOD COUNT % eosinophils 7.5 % 0.0-7. 0 high Not Available [facility] [address] [place] [address], [address], 02/24/2024 12:27:49 02/24/20 24 02/24/2024 COMPL ETE BLOOD COUNT % basophils 1.0 % 0.0-3. 0 normal Not Available [facility] [address] [place] [address], [address], 02/24/2024 12:27:49 02/24/20 24 02/24/2024 COMPL ETE BLOOD COUNT nucleated red cells 0.1 % 0.0-0. 9 normal Not Available [facility] [address] [place] [address], [address], 02/24/2024 12:27:49 02/24/20 24 02/24/2024 COMPL ETE BLOOD COUNT nucleated RBCs, absolute 0.01 10*3/ uL not estab. normal Not Available [facility] [address] [place] [address], [address], 02/24/2024 12:27:49 02/24/20 24 02/24/2024 MORPH OLOGY anisocytosis MODERA TE abnormal Not Available [facility] [address] [place] [address], [address], 02/24/2024 12:27:52 07/30/19 25 07/29/2024 URINE CULTU RE escherichia coli Organi sm: Escher ichia coli Not Available [facility] [address] [place] [address], [address], 07/31/2024 15:31:54 07/30/19 25 07/31/2024 URINE CULTU RE urine culture abnormal ISOLA TE #1 COLON Y COUNT : > 100,0 00 CFU/M L Proba ble Gram Negat rani Bacil lu. ID and sensi tivit y in progr ess. See [place] te Resul t(s) Below Esche sen a coli Not Available [facility] [address] [place] [address], [address], 07/31/2024 15:31:54 07/30/19 25 07/31/2024 URINE CULTU RE amox/K clav'ate(C) <=8/4 ug/mL susceptib le Not Available [facility] [address] [place] [address], [address], 07/31/2024 15:31:54 07/30/19 25 07/31/2024 URINE CULTU RE ampicillin <=8 ug/mL susceptib le Not Available [facility] [address] [place] [address], [address], 07/31/2024 15:31:54 07/30/19 25 07/31/2024 URINE CULTU RE cefazolin <=2 ug/mL susceptib le Not Available [facility] [address] [place] [address], [address], 07/31/2024 15:31:54 07/30/19 25 07/31/2024 URINE CULTU RE ceftazidime <=1 ug/mL susceptib le Not Available [facility] [address] [place] [address], [address], 07/31/2024 15:31:54 07/30/19 25 07/31/2024 URINE CULTU RE ceftriaxone <=1 ug/mL susceptib le Not Available [facility] [address] [place] [address], [address], 07/31/2024 15:31:54 07/30/19 25 07/31/2024 URINE CULTU RE cefuroxime <=4 ug/mL susceptib le Not Available [facility] [address] [place] [address], [address], 07/31/2024 15:31:54 07/30/19 25 07/31/2024 URINE CULTU RE ciprofloxaci n <=0.25 ug/mL susceptib le Not Available [facility] [address] [place] [address], [address], 07/31/2024 15:31:54 07/30/19 25 07/31/2024 URINE CULTU RE gentamicin <=4 ug/mL susceptib le Not Available [facility] [address] [place] [address], [address], 07/31/2024 15:31:54 07/30/19 25 07/31/2024 URINE CULTU RE imipenem <=1 ug/mL susceptib le Not Available [facility] [address] [place] [address], [address], 07/31/2024 15:31:54 07/30/19 25 07/31/2024 URINE CULTU RE levofloxacin <=0.5 ug/mL susceptib le Not Available [facility] [address] [place] [address], [address], 07/31/2024 15:31:54 07/30/19 25 07/31/2024 URINE CULTU RE nitrofuranto in <=32 ug/mL susceptib le Not Available [facility] [address] [place] [address], [address], 07/31/2024 15:31:54 07/30/19 25 07/31/2024 URINE CULTU RE piperacillin /alex <=16 ug/mL susceptib le Not Available [facility] [address] [place] [address], [address], 07/31/2024 15:31:54 07/30/19 25 07/31/2024 URINE CULTU RE tetracycline <=4 ug/mL susceptib le Not Available [facility] [address] [place] [address], [address], 07/31/2024 15:31:54 07/30/19 25 07/31/2024 URINE CULTU RE tobramycin <=2 ug/mL susceptib le Not Available [facility] [address] [place], [address], 07/31/2024 15:31:54 07/30/19 25 07/31/2024 URINE CULTU RE trimeth/sulf a <=2/38 ug/mL susceptib le Not Available [facility] [address] [place] [address], [address], 07/31/2024 15:31:54 07/30/19 25 07/29/2024 urina lysis panel , auto Unknown Analyte Clean Catch Not Available [facility] [address], [place], [address], 07/29/2024 14:13:56 07/30/19 25 07/29/2024 urina lysis panel , auto Unknown Analyte Yellow Not Available [facility] [address], [place], [address], 07/29/2024 14:13:56 07/30/19 25 07/29/2024 urina lysis panel , auto Unknown Analyte Clear Not Available [facility] [address], [place], [address], 07/29/2024 14:13:56 07/30/19 25 07/29/2024 urina lysis panel , auto Unknown Analyte 1.015 Not Available [facility] [address], [place], [address], 07/29/2024 14:13:56 07/30/19 25 07/29/2024 urina lysis panel , auto Unknown Analyte 1.003 - 1.030 Not Available [facility] [address] [place], [address], 07/29/2024 14:13:56 07/30/19 25 07/29/2024 urina lysis panel , auto Unknown Analyte 5.0 Not Available [facility] [address] [place], [address], 07/29/2024 14:13:56 07/30/19 25 07/29/2024 urina lysis panel , auto Unknown Analyte 5.0 - 8.0 Not Available [facility] [address] [place], [address], 07/29/2024 14:13:56 07/30/1907/29/2024 urina lysis panel , auto Unknown Analyte 500 Ade/uL Not Available [facility] [address] [place], [address], 07/29/2024 14:13:56 07/30/1907/29/2024 urina lysis panel , auto Unknown Analyte Negati ve Not Available [facility] [address] [place], [address], 07/29/2024 14:13:56 07/30/1907/29/2024 urina lysis panel , auto Unknown Analyte POSITI VE (Abnor mal) Not Available [facility] [address] [place], [address], 07/29/2024 14:13:56 07/30/19 25 07/29/2024 urina lysis panel , auto Unknown Analyte Negati ve Not Available [facility] [address], [place], [address], 07/29/2024 14:13:56 07/30/19 25 07/29/2024 urina lysis panel , auto Unknown Analyte Trace Not Available [facility] [address] [place], [address], 07/29/2024 14:13:56 07/30/19 25 07/29/2024 urina lysis panel , auto Unknown Analyte Negati ve Not Available [facility] [address] [place], [address], 07/29/2024 14:13:56 07/30/19 25 07/29/2024 urina lysis panel , auto Unknown Analyte Normal Not Available [facility] [address], [place], [address], 07/29/2024 14:13:56 07/30/19 25 07/29/2024 urina lysis panel , auto Unknown Analyte Normal Not Available [facility] [address] [place], [address], 07/29/2024 14:13:56 07/30/19 25 07/29/2024 urina lysis panel , auto Unknown Analyte Negati ve Not Available [facility] [address] [place], [address], 07/29/2024 14:13:56 07/30/19 25 07/29/2024 urina lysis panel , auto Unknown Analyte Negati ve Not Available [facility] [address] [place], [address], 07/29/2024 14:13:56 07/30/19 25 07/29/2024 urina lysis panel , auto Unknown Analyte 1 mg/dL Not Available [facility] [address] [place], [address], 07/29/2024 14:13:56 07/30/19 25 07/29/2024 urina lysis panel , auto Unknown Analyte Normal Not Available [facility] [address] [place], [address], 07/29/2024 14:13:56 07/30/19 25 07/29/2024 urina lysis panel , auto Unknown Analyte Negati ve Not Available [facility] [address] [place], [address], 07/29/2024 14:13:56 07/30/19 25 07/29/2024 urina lysis panel , auto Unknown Analyte Negati ve Not Available [facility] [address] [place], [address], 07/29/2024 14:13:56 07/30/19 25 07/29/2024 urina lysis panel , auto Unknown Analyte Negati ve Not Available [facility] [address] [place], [address], 07/29/2024 14:13:56 07/30/19 25 07/29/2024 urina lysis panel , auto Unknown Analyte Negati ve Not Available [facility] [address] [place], [address], 07/29/2024 14:13:56 Result Notes None recorded. Problems Name Problem SNOMED Code Status Onset Date Resolution Date Notes Provider Name and Address Organization Details Recorded Time Nocturia 704255472 Active 2014 From Automated Load;Prov ider: Lobo, Stacy;St atus: Active Not Available [facility] 6 08:27:56 Lower urinary tract symptoms due to benign prostatic hypertrop hy 51690106387 101 Active 2014 From Automated Load;Prov ider: Lobo, Stacy;St atus: Active Not Available [facility] 6 08:27:56 Increased frequency of urination 988570938 Active 2014 From Automated Load;Prov ider: Lobo, Stacy;St atus: Active Not Available [facility] 6 08:27:56 Urge incontine nce of urine 00867626 Active 2015 From Automated Load;Prov ider: Lobo, Stacy;St atus: Active Not Available [facility] 6 08:27:56 Urgent desire to urinate 98348215 Active 2015 From Automated Load;Prov ider: Lobo, Stacy;St atus: Active Not Available [facility] 6 08:27:56 Multiple sclerosis 04489631 Active 2015 From Automated Load;Prov ider: Lobo, Stacy;St atus: Active Not Available [facility] 6 08:27:56 Weakness of left arm 40333977070 766309 Active 2019 Mary davis [facility] 0 10:22:02 Edema 136628328 Active 2019 Mary davis [facility] 0 07:35:39 Weakness of left leg 38348131501 919940 Active 2019 Mary davis [facility] 0 07:35:40 Problem Notes None recorded. Procedures Surgical History Date Name Laterality Status Provider Name and Address Organization Details Recorded Time 07/30/19 25 Lupron Administration completed Trish Rushing [facility] 07/29/2024 14:47:24 12/04/19 24 [facility] 18:14:34 05/29/19 24 [facility] 13:00:54 11/29/19 23 [facility]22 12:56:58 05/31/19 23 Eligard Administration completed [facility] 05/30/2022 14:30:56 05/23/19 22 Prostate Surgery [facility] 06/14/2021 15:48:50 03/24/19 14 Knee Surgery completed Beulah Rosy [facility] 07/28/2018 13:37:26 03/24/18 56 Appendectomy completed Beulah [facility] 07/28/2018 13:37:18 Imaging Results None recorded. [...] Updated DateTime 07/29/2024 175.26 cm 36.9 kg/m2 299626.09 g Trish Rushing [facility] 07/29/2024 14:13:34 Date Recorded Body height Provider Name an d Address Organization Details Last Updated DateTime 08/26/2023 175.26 cm Janeth Estefany [facility] 0 08/26/2023 08:18:10 Date Recorded Body height Body mass index (BMI) Body weight Provider Name and Address Organization Details Last Updated DateTime 10/16/2023 175.26 cm 36.9 kg/m2 692851.09 g Abrahan Corbint [facility] 10/16/2023 15:07:11 Date Recorded Body height Body mass index (BMI) Body weight Provider Name and Address Organization Details Last Updated DateTime 12/04/2023 175.26 cm 36.9 kg/m2 234016.09 keesha Almaguer [facility] 12/04/2023 13:20:26 Date Recorded Body height Provider Name an d Address Organization Details Last Updated DateTime 02/24/2024 175.26 cm Janeth Allison [facility] 1 04/26/2023 08:14:12 Social History Question Answer Notes LastModified by Organizat ion Details LastModified Time Tobacco Smoking Status Current Some Day Sm[facility] 13:36:22 How Much Tobacco Do You Chew? None Information not available 07/28/2018 Which Illicit Or Recreational Drugs Have You Used? None Information not available 03/12/2019 Live Alone Or With Others? With Others Information not available 07/28/2018 Marital Status Informatio n not available 07/28/2018 What Was The Date Of Your Most Recent Tobacco Screening? 07/29/2024 [email or web address] Information not available 07/29/2024 What Is Your Relationship Status? [email or web address] Information not available 05/24/2021 Has Tobacco Cessation [...] History Condition Response Coronary Artery Disease N Gout N Other N Kidney Cyst N Kidney Stones N Enlarged Prostate Y Heart Arrhythmia N Head Trauma/Injury N Erectile Dysfunction N Emphysema N Sexually Transmitted Disease N Depression N Pneumonia N Incontinence Y Prostate Problems Y Cancer Prostate Y Paralysis N Anxiety Disorder N Hemorrhoids N Obesity N Arthritis N Infertility N Acid Reflux (GERD) Y Hematuria N Cancer Y Stroke N Neck Injury N Previous Radiation Therapy? N Neurologic Disorder N Kidney Disease N Heart Conditions N Kidney or Bladder Problems N If you get up at night to urinate, how m any times? Y Urinary Problems N Constipation N Brain Injury N Ulcers N Do [...] Back Pain N Proteinuria N Heart Attack (NC) N Mental Illness N Neurological Problems Y Ovarian Cancer N Diabetes Y Seizures/Epilepsy N Genitourinary problem(s) N Congestive Heart Failure (CHF) N Kidney Failure N Sleep Apnea N Heart Disease N Bronchitis N Hypertension Y Immunizations Vaccine Type Date Status Note Provider Nam e and Address Organization Details Recorded Time Influenza, split virus, quadrivalent, preservative 8 completed Abrahan Almaguer [facility] 05/01/2023 15:41:04 pneumococcal, unspecified formulation 7 completed Murelene Tripp null, [facility] 05/01/2023 15:41:04 Hep A, unspecified formulation 8 completed Murelene Tripp null, [facility] 12/04/2023 13:20:33 Influenza, split virus, quadrivalent, preservative 9 completed Murelene Tripp null, [facility] 05/01/2023 15:41:04 Influenza, split virus, quadrivalent, preservative 0 completed Murelene Tripp null, [facility] 05/01/2023 15:41:04 SARS-COV-2 (COVID-19) vaccine, UNSPECIFIED 1 completed Murelene Tripp null, [facility] 12/04/2023 13:20:33 SARS-COV-2 (COVID-19) vaccine, UNSPECIFIED 1 completed Murelene Tripp [facility] 12/04/2023 13:20:33 Past Encounters Encounter ID Performer Location Encounter Start Date Encounter Closed Date Diagnosis/Indication Diagnosis SNOMED-CT Code Diagnosis ICD10 Code Diagnosis Note [id number] FRANNY DAVILA MD [facility] [address] [address] 07/28/2018 13:20:05 07/28/2018 16:17:39 Multiple sclerosis 19704084 G35 Infection screening 2437 10021 Z11.59 [id number] FRANNY DAVILA MD [facility] [address] [address] 09/17/2018 08:37:06 09/17/2018 09:28:57 Multiple sclerosis 79571951 G35 [id number] FRANNY DAVILA MD [facility] [address] [address] 12/07/2018 10:23:49 12/07/2018 11:43:47 Multiple sclerosis 69869652 G35 Primary pr ogressive multiple sclerosis 774819483 G35 Abnormal g ait due to muscle weakness 127413170 M62.81 Needs walk ing aid in home 449061813 Z74.09 Neurogenic dysfunction of urinary bladder 616296827 N31.9 Long-term drug therapy 321592943 Z79.899 Weakness of left arm 545 6459776 5292868 G83.24 [id number] FRANNY DAVILA MD NEUROLOGY [facility] [address] [place] [address] 1 03/12/2019 10:34:22 03/12/2019 12:31:08 Multiple sclerosis 11552605 G35 [id number] FRANNY DAVILA MD [facility]UROLOGY CLOSED [address] [place] [address] 1 10/05/2019 10:11:43 10/05/2019 11:33:44 Multiple sclerosis 37980266 G35 Weakness of left arm 968 7035531 8539495 G83.24 Weakness of left leg 806 3849420 1970834 G83.10 Edema 844720747 R60.9 Primary pr ogressive multiple sclerosis 694981788 G35 Long-term drug therapy 124181216 Z79.627 [id number] FRANNY DAVILA MD NEUROLOGY CLOSED [address] [place] [address] 1 03/30/2020 08:02:28 03/30/2020 08:52:00 Multiple sclerosis 35131505 G35 Primary pr ogressive multiple sclerosis 255294205 G35 Long-term current use of drug therapy 361528420 Z79.899 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 Abnormal g ait due to muscle weakness 098632900 M62.81 [id number] FRANNY DAVILA MD NEUROLOGY CLOSED [address] [place] [address] 1 10/02/2020 07:59:39 10/02/2020 11:08:30 Primary progressive multiple sclerosis 713995261 G35 Long-term current use of drug therapy 550119087 Z79.899 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.20 Abnormal g ait due to muscle weakness 851625753 M62.81 Paresthesi a of upper limb 15253878 R20.2 Paresthesi a of lower extremity 263717837 R20.2 [id number] FRANNY DAVILA MD NEUROLOGY CLOSED [address] [place] [address] 1 03/05/2021 08:26:17 03/05/2021 09:19:51 Primary progressive multiple sclerosis 814373022 G35 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 Abnormal g ait due to muscle weakness 202586257 M62.81 Nocturia 550551436 R35.1 [id number] STACY DIAMOND MD [facility] [address] [address] 05/24/2021 12:34:51 05/24/2021 20:50:59 Benign prostatic hyperplasia with outflow obstruction 255468159 N40.1 Increased frequency of urination 153912039 R35.0 Nocturia 969508100 R35.1 [id number] STACY DIAMOND MD [facility] [address],[place] [address] 8 06/14/2021 13:34:12 06/20/2021 17:49:03 Postoperative care 239714885 Z48.89 Malignant neoplasm of prostate 204885341 C61 [id number] STACY DIAMOND MD [facility] [address],[place] [address] 8 08/02/2021 12:37:32 08/08/2021 07:49:44 Urge incontinence of urine 05906462 N39.41 Urinary tr act infectious disease 29219587 N39.0 Benign pro static hyperplasia with outflow obstruction 019424561 N40.1 [id number] FRANNY DAVILA MD NEUROLOGY SB CLOSED [address] [place] [address] 09/03/2021 08:05:11 09/03/2021 08:50:06 Primary progressive multiple sclerosis 488160934 G35 Abnormal g ait due to muscle weakness 353098500 M62.81 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 912354746 Z99.3 [id number] STACY DIAMOND MD [facility] [address] [place] [address] 10/04/2021 14:21:00 10/05/2021 14:25:46 Benign prostatic hyperplasia with outflow obstruction 477537012 N40.1 Urge incon tinence of urine 03183208 N39.41 [id number] STACY DIAMOND MD [facility] [address] [place] [address] 8 01/31/2022 12:40:52 02/20/2022 13:17:44 Benign prostatic hyperplasia with outflow obstruction 182117721 N40.1 Urge incon tinence of urine 90101903 N39.41 Malignant neoplasm of prostate 688353974 C61 [id number] STACY DIAMOND MD SURGERY SCHEDULE [address] [place] [address] 02/21/2022 06:59:24 02/21/2022 06:59:47 [id number] FRANNY DAVILA MD NEUROLOGY SB CLOSED [address] [place] [address] 1 03/04/2022 07:53:47 03/05/2022 08:48:30 Multiple sclerosis 63432103 G35 Long-term current use of drug therapy 304202186 Z79.899 Abnormal g ait due to muscle weakness 771592570 M62.81 Unsteady w hen standing 326848430 R26.81 [id number] STACY DIAMOND MD [facility] [place] [place] [address] 03/21/2022 13:39:55 04/03/2022 11:08:21 Malignant neoplasm of prostate 542513948 C61 [id number] STACY DIAMOND MD [facility] [place] [address] 05/30/2022 14:08:49 05/31/2022 09:49:17 Malignant neoplasm of prostate 813663716 C61 Prostate s pecific antigen above reference range 703988896 R97.20 [id number] FRANNY DAVILA MD NEUROLOGY CLOSED [address] [place] [address] 1 08/22/2022 07:54:52 08/23/2022 04:12:24 Multiple sclerosis 48047530 G35 Abnormal g ait due to muscle weakness 401372226 M62.81 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 862848341 Z99.3 Need for p ersonal care assistance 8913810094 9559203 Z74.1 Long-term current use of drug therapy 509340463 Z79.899 [id number] [facility] [place] [address] 08/29/2022 13:16:25 08/29/2022 13:48:47 Malignant neoplasm of prostate 365410576 C61 Prostate s pecific antigen above reference range 960264289 R97.20 PSA in 3 months. Order provided [id number] STACY DIAMOND MD [facility] [address] [place] [address] 11/28/2022 12:51:42 11/28/2022 15:53:06 Malignant neoplasm of prostate 185328977 C61 Nocturia 502830825 R35.1 [id number] FRANNY DAVILA MD NEUROLOGY CLOSED [address] [place], [place] [address] 02/24/2023 08:47:29 02/24/2023 09:44:47 Multiple sclerosis 75603012 G35 Disability 08162757 Z78. 9 Walking disability 73226 8008 R26.2 [id number] STACY DIAMOND MD [facility] [address] [place] [address] ,[place] [address] 8 05/01/2023 14:17:13 05/02/2023 15:10:44 Urinary tract infectious disease 91831329 N39.0 Malignant neoplasm of prostate 109487949 C61 [id number] STACY DIAMOND MD [facility] [address],[place] [address] 8 05/29/2023 12:52:08 05/29/2023 15:53:22 Urinary tract infectious disease 85693255 N39.0 Malignant neoplasm of prostate 731207198 C61 [id number] FRANNY DAVILA MD NEUROLOGY CLOSED [address] [place] [address] 1 08/26/2023 08:17:18 08/27/2023 05:19:13 Long-term current use of drug therapy 042299115 Z79.899 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 99066 G82.20 Abnormal g ait due to muscle weakness 991575218 M62.81 Neurogenic dysfunction of urinary bladder 203204369 N31.9 Multiple sclerosis 82147 007 G35 [id number] STACY DIAMOND MD [facility] [address],[place] [address] 8 10/16/2023 14:44:01 10/17/2023 12:16:23 Urinary tract infectious disease 37969454 N39.0 Malignant neoplasm of prostate 222091764 C61 Tinea cruris 095650244 B 35.6 Urinary incontinence 165 337120 R32 [id number] MD [facility] [address] [place] [address] [place] [address] 12/04/2023 13:00:03 12/04/2023 18:37:32 Urinary tract infectious disease 61198820 N39.0 see above Malignant neoplasm of prostate 927422817 C61 Lupron injection today Tinea cruris 995045096 B 35.6 Urinary incontinence 165 483762 R32 [id number] FRANNY DAVILA MD NEUROLOGY SB CLOSED [address] [place] [address] 02/24/2024 08:13:44 02/26/2024 12:06:49 Multiple sclerosis 67104034 G35 Long-term current use of drug therapy 962193313 Z79.899 High risk medication monitoring indicated 1116338683 8729711 Z76.89 Disability 80708356 Z78. 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 - Advise on increased fluid intake. Urinary incontinence 165 802999 R32 - Continue silodosin. - Monitor fluid intake. Malignant neoplasm of prostate 523316035 C61 - Maintain Lupron therapy. - PSA remains undetectab le. Health Concerns Section Related Observation LastModified by Organization Detai ls LastModified Time None Recorded Concern Status LastModified by Organization Details LastModified Time None Recorded Advance Directives Directive None Recorded Payers Insurance Date Sequence Insurance Name Policy Number Policy Munoz Covered Member ID Munoz Member ID Guarantor Name 07/26/2024 1 [place] David Chung [id number] Med Chung 08/09/2024 2 AARP (MEDICARE SUPPLEMENT) Med Chung [id number] Med Chung Notes Date Note Type Note [...] is September 07, he gets Ocrevus at [facility]. FRANNY DAVILA MD [address] [place] [address], [address], [facility] 08/27/2023 07:18:32 10/16/2023 text/html 78-year-old male in the office for evaluation of incontinence. He is currently taking alfuzosin. He has a rash in his genitourinary area. He is having a hard time keeping dry. He reports constant dribble. Daytime and night time frequency every 2 hours. PSAFebruary 2023-0.13August 2022-0.176June 2022- 0.24August 2021- 3.72 STACY DIAMOND MD [address] [place] [address], [phone], [facility] 11/02/2023 15:24:08 12/04/2023 text/html [...] 2022- 0.24August 2021- 3.72 STACY DIAMOND MD [address] [place] [address], [phone], [facility] 12/04/2023 19:37:14 02/24/2024 text/html [...] CMP, IgG Reg Nick Nolasco MD in [place] is reg . FRANNY DAVILA MD [address] [place] [address], [phone], [facility] 02/24/2024 13:31:52 07/29/2024 text/html - The patient [...] and June 08, 2024). STACY DIAMOND MD [address] [place] [address], [phone], [facility] 08/08/2024 15:20:06
--- OUTSIDE RECORDS SUMMARY | 2024-09-02 09:26 | XMS_ITS | Encounter Summary ---
Author Organization [employer] Address [address] [place] [address] Care Team Providers Care Central Service Tech Name Role Phone Marcelino Mobley MD Primary Care Provider [phone] Encounter Details Date Type Department Care Team (Late st Contact Info) Description 03/03/2019 Transcribed Document [facility] Family Medicine [facility] [place] [address] ProviderEphraim MD [address] [place] [address] Social History Tobacco Use Types Packs/Day Years Used Date Smoking Tobacco: Never Assessed Sex and Gender Information Value Date Recorded Sex Assigned at Not on file Legal Sex Male 4:11 PM CDT Gender Identity Not on file Sexual Orientation Not on file documented as of this encounter Miscellaneous Notes * Cerner Conversion Note - Ephraim Bob MD - 03/03/2019 12:38 PM DIETETIC ASSISTANT Nursing Discharge Summary Entered On: 03/03/2019 12:39 EST Performed On: 03/03/2019 12:38 EST by CLAUDIA TEMPLETON RN Discharge Documentation Discharge Date/Time : 03/03/2019 12:38 EST Patient Disposition, General : Discharge Discharge To : Home with ambulatory/outpatient follow-up Mode Of Departure, General Discharge : Wheelchair Accompanied By, Discharge : Spouse IV Discontinued : Yes IV Therapy Comment : no complications Personal Belongings With Patient : Yes Discharge Instructions Reviewed With, Opportunity For Questions Given : Patient Teaching Method : Explanation Teaching Evaluation : Verbalizes understanding Education Comment : Return in 6 months. Force fluids CLAUDIA TEMPLETON RN - 03/03/2019 12:38 EST Electronically signed by Bienvenido [facility] Conversion Oracle Business Analyst Cerner at 07/10/2022 10:00 PM CDT documented in this encounter Plan of Treatment Upcoming Encounters Date Type Department Care Team (Late st Contact Info) Description 09/07/2024 9:00 AM EDT Appointment [facility] Outpatient Treatment [address] [place] [address] documented as of this encounter Visit Diagnoses Not on filedocumented in this encounter Care Teams Central Service Tech Relationship Specialty Start Date End Date Marcelino Mobley MD [address] [place] [address] PCP - General Emergency Medicine 03/08/22 documented as of this encounter
--- OUTSIDE RECORDS SUMMARY | 2024-09-02 09:26 | XMS_ITS | Encounter Summary ---
Author Organization [employer] Address [address] [place] [address] Care Team Providers Care Solderer Production Line Name Role Phone Marcelino Mobley MD Primary Care Provider [phone] Encounter Details Date Type Department Care Team (Late st Contact Info) Description 02/17/2019 Transcribed Document [facility] [place] [facility] [place] [address] ProviderEphraim MD [address] [place] [address] Social History Tobacco Use Types Packs/Day Years Used Date Smoking Tobacco: Never Assessed Sex and Gender Information Value Date Recorded Sex Assigned at Not on file Legal Sex Male 4:11 PM CDT Gender Identity Not on file Sexual Orientation Not on file documented as of this encounter Miscellaneous Notes * Cerner Conversion Note - Historical ProviderMD - 02/17/2019 2:02 PM 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 Nursing Discharge Summary Entered On: 02/17/2019 14:02 EST Performed On: 02/17/2019 14:02 EST by GIOVANNI MITCHELL RN Discharge Documentation Discharge Date/Time : 02/17/2019 12:50 EST Transporter Signature : GIOVANNI MITCHELL RN Patient Disposition, General : Discharge Discharge To : Home with ambulatory/outpatient follow-up Mode Of Departure, General Discharge : Wheelchair Accompanied By, Discharge : Spouse IV Discontinued : Yes Personal Belongings With Patient : Yes Discharge Instructions Reviewed With, Opportunity For Questions Given : Patient Teaching Method : Explanation Teaching Evaluation : Verbalizes understanding GIOVANNI MITCHELL RN - 02/17/2019 14:02 EST Electronically signed by Bienvenido [facility] Conversion Kettle Chipper Cerner at 07/10/2022 9:51 PM CDT documented in this encounter Plan of Treatment Upcoming Encounters Date Type Department Care Team (Late st Contact Info) Description 09/07/2024 9:00 AM EDT Appointment [facility] Outpatient Treatment [address] [place] [address] documented as of this encounter Visit Diagnoses Not on filedocumented in this encounter Care Teams Solderer Production Line Relationship Specialty Start Date End Date Marcelino Mobley MD [address] [place] [address] PCP - General Emergency Medicine 03/08/22 documented as of this encounter
--- OUTSIDE RECORDS SUMMARY | 2024-09-02 09:26 | XMS_ITS | Data Portability ---
Author Organization [facility] [place] [facility] KEELY Dawson ADMIN Address [address] [place] [address] Assessment No assessment recorded. Plan of Treatment Reminders Order Date Submit Date Provider Last Modified By Organization Details Last Modified Time Details Appointments None recorded. Lab urinalysis , dipstick 2022 023 [facility] Not available 12:25:51 culture, urine 2022 023 [facility] (Lab Registration) , [address] [place] [address], [address], 3 12:25:51 Referral None recorded. Procedures None recorded. Surgeries None recorded. Imaging None recorded. Medication Orders ciprofloxa ann-marie 500 mg tablet [address] [facility], [address] [place] [address], [address], 3 14:13:24 Ciprodex 0.3 %-0.1 % ear drops,susp ension [address] [facility], [address] [place] [address], [address], 2 09:50:14 doxycyclin e hyclate 100 mg tablet 2021 022 [facility], [address] [place] [address], [address], 3 14:09:10 Patient TargetsNo targets recorded. Patient InstructionsNo instructions recorded. Reason for Referral None Reported. Results Created Date Observation Date Name Description Value Unit Range Abnormal Flag Note LastModifiedBy Organization Detail LastModifiedTime 06/11/19 23 06/10/2022 CULTU RE URINE results LT 06-11 633 >100, 000 COL/M L Gram Posit rani Cocci Not Available [facility] (Lab Registration) [address], [place], [address], 06/11/2022 06:35:52 06/11/19 23 06/10/2022 CULTU RE URINE note Unles s other junior noted testi ng perfo rmed at: [facility] [address] [place] [address] [phone] Benedicto mccann MD CLIA: [id number] Not Available [facility] (Lab Registration) [address], [place], [address], 06/11/2022 06:35:52 06/11/19 23 06/10/2022 CULTU RE URINE culccur ===== ===== ===== ===== ===== ===== ===== ===== ===== ===== ===== ===== ===== ===== ===== ===== ===== ===== ===== ===== ===== ===== ===== ===== Speci men NO.: [id number] Exam Statu s: Final Proce dure: [...] L Gram Posit rani Cocci Not Available [facility] (Lab Registration) [address] , [place], [address], 06/12/2022 07:59:18 06/11/19 23 06/10/2022 CULTU RE URINE note Unles s other junior noted testi ng perfo rmed at: [facility] [address] [place] [address] [phone] Benedicto mccann MD CLIA: [id number] Not Available [facility] (Lab Registration) [address] , [place], [address], 06/12/2022 07:59:18 06/11/19 23 06/10/2022 urina lysis , dipst ick Leukocytes (reference range) small Not Available [address], [address], 06/10/2022 09:58:29 06/11/19 23 06/10/2022 urina lysis , dipst ick Nitrite (reference range:) positi ve Not Available [address], [address], 06/10/2022 09:58:29 06/11/19 23 06/10/2022 urina lysis , dipst ick Urobilinogen (reference range) 2 Not Available [address], [place], [address], 06/10/2022 09:58:29 06/11/19 23 06/10/2022 urina lysis , dipst ick Protein (reference range) negati ve Not Available [address], [address], 06/10/2022 09:58:29 06/11/19 23 06/10/2022 urina lysis , dipst ick pH (reference range 5-8.5) 7.0 Not Available [address], [address], 06/10/2022 09:58:29 06/11/19 23 06/10/2022 urina lysis , dipst ick Blood (reference range:) negati ve Not Available [address], [place], [address], 06/10/2022 09:58:29 06/11/19 23 06/10/2022 urina lysis , dipst ick Specific Witter (reference range) 1.015 Not Available [address], [address], 06/10/2022 09:58:29 06/11/19 23 06/10/2022 urina lysis , dipst ick Ketone (reference range) negati ve Not Available [address], [address], 06/10/2022 09:58:29 06/11/19 23 06/10/2022 urina lysis , dipst ick Bilirubin (reference range) negati ve Not Available [address], [address], 06/10/2022 09:58:29 0306/10/2022 urina lysis , dipst ick Glucose (reference range) negati ve Not Available [address], [address], 06/10/2022 09:58:29 06/11/1906/10/2022 urina lysis , dipst ick Color (reference range: yellow-brown ) Yellow Not Available [address], [address], 06/10/2022 09:58:29 Result Notes None recorded. Medical [...] Updated DateTime 2 175.26 cm 36.4 kg/m2 488785. 16 g 97.5 [degF] 97 % 97 % 64 /min 18 /min 152 mm[Hg] 69 mm[Hg] Ana [facility] [place] [facility] [place] 2 09:26:07 Social History Question Answer Notes LastModified by Organizat ion Details LastModified Time Tobacco Smoking Status Never Smoker Not Available [facility] 06/11/2022 16:08:24 What Is Your Level Of [...] preservative free, pediatric 1 completed Not Available [facility] 06/11/2022 16:08:25 Influenza, split virus, quadrivalent, preservative 0 completed Not Available [facility] 06/11/2022 16:08:25 Influenza, adjuvanted, trivalent, PF 9 completed Not Available [facility] 06/11/2022 16:08:25 Influenza, high-dose, quadrivalent, PF 2 completed Ana Villagran [facility] [place] 01/25/2022 10:04:21 Past Encounters Encounter ID Performer Location Encounter Start Date Encounter Closed Date Diagnosis/Indication Diagnosis SNOMED-CT Code Diagnosis ICD10 Code Diagnosis Note [id number] Marcelino Mobley MD [address] [address] 01/25/2022 09:11:20 01/28/2022 11:29:19 Administration of influenza vaccine 26613277 Z23 Acute sero us otitis media of right ear 4645552110 520352 H65.01 [id number] PASQUALE ROBERT NP [address] [address] 06/10/2022 09:41:28 06/10/2022 10:01:08 Acute cystitis 37903892 N30.00 Health Concerns Section Related Observation LastModified by Organization Detai ls LastModified Time None Recorded Concern Status LastModified by Organization Details LastModified Time None Recorded Advance Directives Directive None Recorded Payers Insurance Date Sequence Insurance Name Policy Number Policy Munoz Covered Member ID Munoz Member ID Guarantor Name 10/11/2023 1 [place] David Hughes [place] [id number] David Hughes [place] 10/11/2023 2 AARP Med Hughes [place] [id number] David Hughes [place] 10/11/2023 1 [place] David Ellen [place] [id number] David A [place] 10/11/2023 2 AARP (MEDICARE SUPPLEMENT) Med Hughes [place] [id number] David Hughes [place] Notes Date Note Type Note Provider Name and Address Organization Details Recorded Time 01/25/2022 text/html Patient presents complaining of right ear pain. Marcelino Mobley MD [address] [place] [address], [phone] 01/25/2022 12:39:29
--- NOTE | 2024-09-02 09:27 | CT_ITS ---
FINAL REPORT TECHNIQUE: Axial images were obtained through the chest without contrast. Reconstructed images were obtained and reviewed. This study was performed with techniques to keep radiation doses as low as reasonably achievable, (ALARA). Individualized dose reduction techniques using automated exposure control or adjustment of mA and/or kV according to the patient's size were employed. CLINICAL HISTORY: weakness, persistent PNA, eval lungs FINDINGS: The heart size is normal. There is no pericardial effusion. Limited images of the upper abdomen are unremarkable. There are small to moderate bilateral effusions. Dense patchy airspace infiltrates are seen in the right middle lobe and both lower lobes with associated atelectasis. IMPRESSION: Bibasilar airspace infiltrates and atelectasis consistent with pneumonia. Reviewed, Interpreted and Dictated by Humberto Zapata MD Transcribed by Enma Boland Authenticated and [facility]
--- OUTSIDE RECORDS SUMMARY | 2024-09-02 09:27 | XMS_ITS | Data Portability ---
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 [facility] BIROS[facility] [address] [place] [address], [address], [employer] 4 13:14:30 Essential hypertension 33726914 Active 2023 [facility] SAWYEROS[facility] [address] [place] [address], [address], [employer] 4 13:15:45 Hyperlipidemia 15763123 Active 2023 [facility] SAWYEROS[facility] [address] [place] [address], [address], [employer] 4 13:15:51 Restless legs 55157852 Active 2023 [facility]PUL[facility] [address], [place], [address], [employer] 4 13:16:26 Gastroesophage al reflux disease 949301875 Active 2023 [facility] BIREMILY[facility] N [address], [place], [address], IP[employer] 4 13:16:32 Hyperglycemia 79002409 Active 2023 [facility] [address], [place], [address], IPX 4 13:16:43 Carcinoma of prostate 703095610 Active 2023 [facility] [address], [place], [address], IPX 4 13:27:34 Constipation 11151993 Active 2023 [facility] [address], [place], [address], IPX 4 13:35:34 Problem Notes None recorded. Medical [...] Address Organization Details Last Updated DateTime 05/27/2023 336406.09 g 36.9 kg/m2 175.26 cm NILO PLASENCIA [address] [place] [address], [place], [address], [place] - [employer] 05/27/2023 13:15:34 Social History None recorded. Functional Status None recorded. Mental Status None recorded. Family History Nothing Reported. Medical History No medical history recorded. Past Encounters Encounter ID Performer Location Encounter Start Date Encounter Closed Date Diagnosis/Indication Diagnosis SNOMED-CT Code Diagnosis ICD10 Code Diagnosis Note [id number] NILO PLASENCIA [facility] [address] [facility] [address] [place] [address] 05/27/2023 14:55:50 05/27/2023 14:58:47 Constipation 73084265 K59.00 Cont daily Miralax and prn stool softener. Carcinoma of prostate 25 6458995 C61 Cont biannual injections of prostate cancer Degenerati ve disorder of macula 798364641 H35.30 Cont injections per opthalmolo gy. Essential hypertension 50053963 I10 Cont current bisoprolol . Gastroesop hageal reflux disease 299904533 K21.9 Avoid trigger foods. Eat small meals and avoid carbonated beverages. Avoid laying down for 2 hours after meals. Hyperglycemia 19904888 R 73.9 Cont metformin. NCS diet. Hyperlipidemia 02327452 E78.5 Cont atorvastat in. Multiple sclerosis 07230 007 G35 Cont biannual infusions of Ocrevus. Follow with neurology. Restless legs 36199441 G 25.81 Cont gabapnetin . Body mass index 30+ - obesity 008982529 Z68.36 Encouraged weight loss with a combinatio n of lifestyle and dietary modificati ons. Adult heal th examination 944416469 Z00.00 Chronic care management / Remote patient [...] Member ID Munoz Member ID Guarantor Name 07/31/2023 1 [place] - [facility] David Chung [id number] Med Chung 08/22/2024 1 [place] David Chung [id number] Med Chung 08/08/2024 2 AARP (MEDICARE SUPPLEMENT) Med Chung [id number] Med Chung Notes Date Note Type Note [...] during today's visit. N[facility]O SEPULVEDA[facility] [address] [place] [address], [place], [address], [place] IPX 05/27/2023 14:58:27
--- OUTSIDE RECORDS SUMMARY | 2024-09-02 09:27 | XMS_ITS | Encounter Summary ---
Author Organization [employer] Address [address] [place] [id number] Care Team Providers Care Data Technical Lead Name Role Phone Marcelino Mobley MD Primary Care Provider [phone] Encounter Details Date Type Department Care Team (Late st Contact Info) Description 02/17/2019 Transcribed Document [facility] Family Medicine [address] [place] [address] ProviderEphraim MD [address] [place] [id number] Social History Tobacco Use Types Packs/Day Years Used Date Smoking Tobacco: Never Assessed Sex and Gender Information Value Date Recorded Sex Assigned at Not on file Legal Sex Male 4:11 PM CDT Gender Identity Not on file Sexual Orientation Not on file documented as of this encounter Miscellaneous Notes * Cerner Conversion Note - Ephraim Bob MD - 02/17/2019 8:03 AM [facility] Outpatient Visit History Entered On: 02/17/2019 8:05 EST Performed On: 02/17/2019 8:03 EST by EARL CISNEROS RN Vital Measurements Temperature Source : Temporal artery scanning Temperature Mode : Fahrenheit Temperature, Fahrenheit : 98.2 Deg F Clinical Temperature, C : 36.8 Deg C Pulse Method : Pulse Oximetry Peripheral Pulse Rate : 70 bpm Respiratory Rate : 18 Breaths/Min Blood Pressure Location : Arm, right upper Blood Pressure Source : Non-Invasive BP Device Systolic Blood Pressure : 131 mmHg Diastolic Blood Pressure : 61 mmHg Oxygen Saturation : 93 % (LOW) Oxygen Therapy Mode : Room air EARL CISNEROS RN - 02/17/2019 8:03 EST Height and Weight, Clinical Dosing Height Source : Stated Height Entry Format : [place] Height, Feet : 5 ft(Converted to: 152 cm, 60 Inch) Height, Inches : 9 Inch(Converted to: 0 ft 9 Inch, 22.86 cm) Clinical Height : 175.26 cm Weight Source : Standing scale Weight Entry Format : [place] Clinical Dosing Weight : 113.64 kg Weight, Pounds : 250 lb Body Surface Area (BSA) : 2.27 m2 Body Mass Index : 37 kg/m2 (HI) [place] Body Weight : 70 kg EARL CISNEROS RN - 02/17/2019 8:03 EST Health Histories Smoking Status : Cigars or pipes but not daily within last 30 days, Other: smokes a cigar 3 times a week Smokeless Tobacco Status : Never Desires Tobacco Cessation Medication : No Reason for No Tobacco Cessation Medication : ED/procedural patient only EARL CISNEROS RN - 02/17/2019 8:03 EST Social History (As Of: 02/17/2019 08:05:30 EST) Tobacco: Cigars or pipes but not daily within last 30 days Smoking Status. (Last Updated: 02/17/2019 08:04:14 EST by EARL CISNEROS RN) Alcohol: Alcohol Use History No. (Last Updated: 08/12/2016 18:26:52 EDT by Tj Chicas, GUERITA) Substance Abuse: Drug Use Hx: No. (Last Updated: 08/12/2016 18:26:56 EDT by Tj Chicas, RN) Advance Directive Patient has Advance Directive *Q : No, patient refuses Advance Directive information ERAL CISNEROS RN - 02/17/2019 8:03 EST [place] Suicide Severity Rating Scale (C-SSRS) CSSRS Past Month Wish to be : No CSSRS Past Month Suicidal Thoughts : No CSSRS Lifetime Suicide Behavior : No Suicide Severity Rating Score : 0 Suicide Severity Rating : No Additional Care Required at this time EARL CISNEROS RN - 02/17/2019 8:03 EST Psychosocial History Currently in Unsafe Situation : No EARL CISNEROS RN - 02/17/2019 8:03 EST Fall Risk Scales ABCs Fall Injury [...] Level : 46 or > High Risk [place] Fall Interventions : Adequate lighting, Bed in low position, Call device within reach, Wheels locked EARL CISNEROS RN - 02/17/2019 8:03 EST Electronically signed by [facility] Conversion Vice President Payer Cerner at 07/10/2022 9:46 PM CDT documented in this encounter Plan of Treatment Upcoming Encounters Date Type Department Care Team (Late st Contact Info) Description 09/07/2024 9:00 AM EDT Appointment [facility] Outpatient Treatment [address] [place] [address] documented as of this encounter Visit Diagnoses Not on filedocumented in this encounter Care Teams Data Technical Lead Relationship Specialty Start Date End Date Marcelino Mobley MD [address] [place] [address] PCP - General Emergency Medicine 03/08/22 documented as of this encounter
--- NOTE | 2024-09-02 09:28 | ED_ITS ---
Discharge Plan Disposition Patient Disposition: Xfer Short-Term Hosp Prescriptions Prescriptions: No Action famotidine 20 mg tablet 20 mg PO BID Qty: 60 5RF bisoprolol fumarate 5 mg tablet 5 mg PO DAILY 30 Days Qty: 30 0RF vitamin E 400 unit Tablet 400 unit PO DAILY acetaminophen 325 mg Tablet 650 mg PO Q4HP PRN (Reason: Fever Or Mild Pain (1-3)) Qty: 90 0RF gabapentin 100 mg Capsule 200 mg PO TID 30 Days Qty: 180 0RF atorvastatin 20 mg tablet 20 mg PO HS 30 Days Qty: 30 0RF methenamine hippurate 1 gram tablet 1 g PO BID 30 Days Qty: 60 0RF aspirin 81 mg Tablet 81 mg PO DAILY 30 Days Qty: 30 0RF lisinopril 5 mg tablet 5 mg PO DAILY Qty: 30 2RF polyethylene glycol 3350 [Miralax] 17 gram/dose Powder 17 g PO DAILY Qty: 238 0RF metformin 500 mg Tablet,Er Jenna.Retention 24 Hr 500 mg PO DAILY Qty: 30 0RF cholecalciferol (vitamin D3) [Vitamin D3] 50 mcg (2,000 unit) Capsule 2,000 unit PO DAILY Qty: 30 0RF silodosin 8 mg capsule 8 mg PO DAILY 30 Days Qty: 30 0RF PreserVision AREDS 2,148 mcg-113 mg-45 mg-17.4mg Tablet 1 tab PO BID 30 Days Qty: 60 0RF cyanocobalamin (vitamin B-12) 1,000 mcg capsule 1,000 mcg PO DAILY 30 Days Qty: 30 0RF sodium chloride 1,000 mg Tablet,Soluble 1,000 mg PO DAILY 30 Days Qty: 30 0RF Referrals Follow up/Referrals: Nick Dale MD [Primary Care Provider, Family Practice] - See instructions Clinical Impressions Clinical Impression: Generalized weakness, New onset of congestive heart failure, Bilateral pneumonia, Bilateral pleural effusion, Acute hyponatremia Stand Alone Forms Stand Alone Forms: Transfer Record - ED Print Language Print Language: Hungarian Discharge ED Provider: Jules Martinez General Adult HPI General Chief complaint: Recheck/Abnormal Lab/Rx Stated complaint: Syncopy Time Seen by Provider: 09/02/24 09:08 History of Present Illness HPI narrative: Please note that above description of symptoms, in this electronic medical record under categorization of recalled from ER triage doctor by RN are reflective of an initial nursing assessment, however, is not reflective of my full history and physical exam that was personally taken and clarified. Consequentially, this preceding description of symptoms, which may include the patient's categorized chief complaint in the EMR, do not reflect my personal clinical impression, and the ultimate description of history of present illness and patient stated complaints should be deferred to this section of the note. Unless stated otherwise or congruent with this section of the note, additional signs, symptoms, or incongruence should be interpreted as inaccurate with my clinical impression. Related Data Home Medications ?Medication ?Instructions ?Recorded ?Confirmed vitamin E 400 unit tablet 400 unit PO DAILY 08/13/24 0 08/13/24 Previous Rx's ?Medication ?Instructions ?Recorded acetaminophen 325 mg tablet 650 mg (2 x 325 mg) PO Q4H P PRN 08/17/24 Fever Or Mild Pain (1-3) #90 tabs aspirin 81 mg tablet 81 mg PO DAILY 30 days #30 t abs 08/17/24 atorvastatin 20 mg tablet 20 mg PO HS 30 days #30 tabs 08/17/24 cholecalciferol (vitamin D3) 50 2,000 unit PO DAILY #3 0 caps 08/17/24 mcg (2,000 unit) capsule (Vitamin D3) cyanocobalamin (vitamin B-12) 1,000 mcg PO DAILY 30 da ys #30 caps 08/17/24 1,000 mcg capsule gabapentin 100 mg capsule 200 mg (2 x 100 mg) PO TID 3 0 days 08/17/24 #180 caps lisinopril 5 mg tablet 5 mg PO DAILY #30 tabs 08/17 metformin 500 mg 24 hr 500 mg PO DAILY #30 tabs tablet,extended release (gastric retention) methenamine hippurate 1 gram tablet 1 g PO BID 30 days #60 tabs 08/17/24 polyethylene glycol 3350 17 17 g PO DAILY #238 grams 0 08/17/24 gram/dose oral powder (Miralax) silodosin 8 mg capsule 8 mg PO DAILY 30 days #30 ca ps 08/17/24 sodium chloride 1,000 mg soluble 1,000 mg PO DAILY 30 days #30 tabs 08/17/24 tablet vitamins A,C,H-zotk-vfsixu 2,148 1 tab PO BID 30 days #60 tabs 08/17/24 mcg-113 mg-45 mg-17.4 mg tablet (PreserVision AREDS) bisoprolol fumarate 5 mg tablet 5 mg PO DAILY 30 days #30 tabs 09/01/24 famotidine 20 mg tablet 20 mg PO BID #60 tabs Allergies Allergy/AdvReac Type Severity Reaction Status Date / Time No Known Allergies Allergy Verified 07/19/24 13:22 [facility] Disclaimer: The information contained in this section may have been updated after the patient was seen, as this information can be updated by other users. Medical History (Updated 09/02/24 @ 11:54 by Jules Martinez MD) Diabetes mellitus, type 2 Soft tissue mass Hyponatremia Mass of parotid gland Skin lesions Decreased hearing Anemia Screening for lung cancer Tobacco use Spastic paraparesis Enlarged prostate Macular degeneration Prostate CA GERD (gastroesophageal reflux disease) Diabetes Hypertension Hyperlipidemia Multiple sclerosis Chronic pain [place] COPD (chronic obstructive pulmonary disease) Fracture of right fibula Surgical History (Updated 08/21/24 @ 00:00 by Gwen Rob) History of knee replacement procedure of left knee History of prostate surgery History of appendectomy Family History Other Family history of COPD (chronic obstructive pulmonary disease) Family history of diabetes mellitus type II Family history of hyperlipidemia Family history of hypertension Prostate cancer Social History (Updated 08/13/24 @ 12:16 by Kari Perea RN) Smoking Status: Never smoker smoking status stop date: 2020 alcohol intake: current alcohol intake frequency: holidays/special occasions only current occupational status: other Travel in the last 8 weeks?: None Have you lived/traveled outside US in past 30 days?: No Contact w/someone who lives/traveled outside US past 30 days?: No Exposure to someone with infectious disease in past 14 days?: No Do you have a fever (greater than 100.4 F or 38 C)?: No Have you tested positive for COVID-19?: No Exposed to someone with COVID-19 in past 14 days?: No Do you have a sore throat?: No Do you have a cough?: No Do you have any weakness?: Yes Do you have any diarrhea?: No Are you experiencing any unusual bleeding?: No Do you have any muscle aches/pain?: No Do you have any abdominal pain?: No Are you experiencing loss of taste or smell?: No Other Medical History Have you received the Flu Vaccine for this season: No Have you received the Pneumonia Vaccine: No ROS Obtained: Yes All systems reviewed & no additional complaints except as documented Physical Exam General General appearance: alert, in no apparent distress and obese Head Head exam: atraumatic and normocephalic Eye Eye exam: Present normal appearance, PERRL and EOMI Neck Neck exam: Present normal inspection, full ROM and trachea midline Respiratory Respiratory exam: Present wheezes (mild end expiratory); Absent respiratory distress, stridor, accessory muscle use or prolonged expiratory phase Cardiovascular Cardiovascular exam: Present regular rate, normal rhythm, systolic murmur and other (Pulses equal symmetric in upper and lower extremities) Abdominal Exam Abdominal exam: Present soft; Absent distention or tenderness Extremities Exam Extremities exam: Absent edema Neurological Exam Neurological exam: Present alert and CN II-XII intact; Absent motor sensory deficit Skin Skin exam: Present warm, dry, rash and erythema; Absent diaphoresis Medical Decision Making Medical Records Medical records reviewed: Yes I reviewed the patient's medical records. Screening: Per USPSTF and CDC recommendations, given the prevalence of disease in our region, it is our hospital?s policy to screen for HIV and viral Hepatitis for all patients aged 18 and over and those with ongoing risk factors. Vick Inquiry Pt receiving controlled substance: No Vick was queried for this patient: No Vital Signs: 09/02/24 09:25 09/02/24 09:30 09/02/24 10:00 Temperature 98.7 F Temperature Source Oral Pulse Rate 88 84 Pulse Rate [Right] 88 Respiratory Rate 20 20 22 Blood Pressure 118/60 128/58 L Blood Pressure [Right Arm] 132/58 L Blood Pressure Mean [Right Arm] 82 02 Sat by Pulse Oximetry 94 L 93 L 94 L Oxygen Delivery Method Nasal Cannula Oxygen Flow Rate (LPM) 1 09/02/24 10:30 09/02/24 11:00 Temperature Temperature Source Pulse Rate Pulse Rate [Right] Respiratory Rate 15 22 Blood Pressure 146/65 H 126/66 Blood Pressure [Right Arm] Blood Pressure Mean [Right Arm] 02 Sat by Pulse Oximetry Oxygen Delivery Method Oxygen Flow Rate (LPM) Lab Data Lab Results 09/02/24 09:20: WBC 7.3, RBC 3.53 L, Hgb 9.9 L, Hct 29.7 L, MCV 84.1, MCH 28.0, MCHC 33.3, RDW 14.6, Plt Count 225, MPV 10.0, Neut % (Auto) 59.9, Lymph % (Auto) 22.3, [place] % (Auto) 8.0, Eos % (Auto) 9.4, Baso % (Auto) 0.3, Neut # (Auto) 4.3, Lymph # (Auto) 1.6, [place] # (Auto) 0.6, Eos # (Auto) 0.7 H, Baso # (Auto) 0.0, PT 14.6 H, INR 1.34 H, APTT 32.7 H, Sodium 127 L, Potassium 4.1, Chloride 99, Carbon Dioxide 25, Anion Gap 7.1, BUN 11, Creatinine 0.80, Estimated Creat Clear 94, Estimated GFR 93, Est GFR ( Amer) 113, Glucose 147 H, Calcium 9.3, Magnesium 1.7, Total Bilirubin 0.9, AST 22, ALT 24, Alkaline Phosphatase 116, T otal Creatine Kinase 21 L, Troponin I < 0.01, NT-Pro-B Natriuret Pep 1650 H, T otal Protein 5.1 L, Albumin 2.6 L, Globulin 2.5, Albumin/Globulin Ratio 1.0 L, TSH 0.60, Thyroxine (T4) 7.7, Acetaminophen < 10 L 09/02/24 09:27: VBG pH 7.42 H, VBG pCO2 34.8 L, VBG pO2 79.5 H, VBG HCO3 22.2 L, VBG Total CO2 23.2, VBG O2 Saturation 95.6 H, VBG Base Excess -2.3, VBG Lactic Acid 1.5 09/02/24 10:23: Urine Color Yellow, Urine Appearance Sl cloudy, Urine pH 6.0, Ur Specific Fate 1.025, Urine Protein 1+ A, Urine Glucose (UA) Negative, Urine Ketones Negative, Urine Blood Trace-l, Urine Nitrate Negative, Urine Bilirubin Negative, Urine Urobilinogen 1.0, Ur Leukocyte Esterase 1+ A, Urine RBC Occasional, Urine WBC 20-50, Ur Squamous Epith Cells Occasional, Urine Bacteria 2+, Urine Yeast 2+, Urine Sodium 156.0 H, Urine Opiates Screen Positive H, Urine Methadone Screen Negative, Ur Barbituates Screen Negative, Ur Phencyclidine Scrn Negative, Ur Amphetamines Screen Negative, U Benzodiazepines Scrn Negative, Urine Cocaine Screen Negative, U Marijuana (THC) Screen Negative 09/02/24 09:20 09/02/24 09:20 Orders (Tests/Meds): ED MEDICATIONS Discontinued Medications Generic Name Dose Route Start Last Admin Trade Name Andreasq PRN Reason Stop Dose Admin Albuterol/Ipratropium 9 ml 09/02/24 10:06 09/02/24 10:15 Ipratropium/Albuterol 3 Ml Neb IH 09/02/24 10:07 9 ml ONCE ONE Administration Azithromycin 500 mg 09/02/24 10:06 09/02/24 10:13 Azithromycin 250mg Tablet PO 09/02/24 10:07 500 mg ONCE ONE Administration Furosemide 40 mg 09/02/24 10:05 09/02/24 10:13 Furosemide 40mg/4ml Vial IV 09/02/24 10:06 40 mg ONCE ONE Administration Cefepime HCl 2 gm/ Sodium 100 mls @ 200 mls/hr 09/02/24 10:06 09/02/24 10:13 Chloride IV 09/02/24 10:35 200 mls/hr ONCE ONE Administration ORDERS Category Date Time Status CT chest wo con Stat Cat Scan 09/02/24 09:27 Taken Acetaminophen Stat Lab 09/02/24 09:20 Completed CK [Creatine Kinase] Stat Lab 09/02/24 09:20 Completed Complete Blood Count Auto Diff Stat Lab 09/02/24 09:20 Completed Comprehensive Metabolic Panel Stat Lab 09/02/24 09:20 Completed Drug Screen,Urine Stat Lab 09/02/24 10:23 Completed Magnesium Stat Lab 09/02/24 09:20 Completed NT Pro Brain Natriuretic Pep. Stat Lab 09/02/24 09:20 Completed PT INR [Prothrombin Time INR] Stat Lab 09/02/24 09:20 Completed PTT [Activated Partial Thrombo Time] Stat Lab 09/02/24 09:20 Completed Rapid PCR Covid and Flu A/B Stat Lab 09/02/24 11:24 Ordered Sodium,Urine Random Stat Lab 09/02/24 10:23 Completed T4 (Thyroxine) Stat Lab 09/02/24 09:20 Completed TSH [Thyroid Stimulating Hormone] Stat Lab 09/02/24 09:20 Completed Troponin I Q3H Lab 09/02/24 12:30 Ordered Troponin I Q3H Lab 09/02/24 15:30 Ordered Troponin I Stat Lab 09/02/24 09:20 Completed Urinalysis and Microscopic Stat Lab 09/02/24 10:23 Completed Blood Culture Stat Micro 09/02/24 09:29 Received Urine Culture Stat Micro 09/02/24 10:23 Received Venous Blood Gas Stat RT 09/02/24 09:27 Completed HEART Score History (anamnesis): Slightly suspicious ECG: Normal Age: >65 years Risk factors: 3 or more risk factors Troponin: </= normal limit HEART Score: 4 Medical Decision Narrative: 79-year-old male history of hypertension, hyperlipidemia, COPD not on home oxygen, diabetes, CAD, multiple sclerosis with paresis of lower extremities and nonambulatory presenting with weakness. Per report from jail provider, patient recently had hospitalization at [facility] for pneumonia as well as concern for multiple sclerosis flare. Also had urinary tract infection at the time, was treated with cephalosporin and doxycycline. Patient was seen at the [place] ED 4 days prior to this and workup was negative, sent back to [facility]. Yesterday, 09/01, he had a near syncopal episode while in the shower, but did not fully syncopized, remembers the event. He received DuoNebs and 500 cc bolus yesterday, has had fluids going since that time and has had about 3 L in the past 24 hours or so. Currently on p.o. Levaquin and second dose given today, 09/02. Because patient weak and familial concern, requested to be sent here to [facility] for further evaluation. On arrival, patient very clinically well, but states he just feels more weak than usual. No acute concerns different from his chronic concerns. Denies chest pain, nausea, vomiting, abdominal pain, shortness of breath, cough, lower extremity swelling, etc. History obtained with patient, EMS, family, jail provider. On arrival, patient hemodynamically stable, alert, oriented to person, place, situation, but not month (stated September, it is August) [appropriate, ]GCS [15], moving all extremities spontaneously, pupils equal and reactive to light. Full physical exam performed and significant for chronically ill-appearing male who is in no acute distress. Alert, answering questions appropriately other than month. Has no acute complaints. Lungs are wheezy on end expiration, but no focal breath sounds anteriorly or posteriorly. He does have systolic ejection murmur heard best at right upper sternal border, with likely mild aortic stenosis. No lower extremity edema. Pulses equal and symmetric in upper and lower extremities. Motor and sensory exam as well as cranial nerve exam intact and symmetric, with the exception of left lower extremity more noticeable weakness as compared to the right. Abdomen is soft, nontender, nondistended, no pulsatile abdominal mass. Differential includes pneumonia, sepsis, bacteremia, chronic deconditioning, polypharmacy, myositis, endocrinologic abnormality, metabolic abnormality, among others. Given patient's chronic hyponatremia, history of COPD, malignancy and paraneoplastic syndrome also on differential. Patient placed on continuous cardiac monitoring and continuous pulse ox with initial blood pressure 132/58, heart rate 88, saturation 94% on 1 L nasal cannula (this was initiated by EMS for comfort, patient 89 to 90% with EMS). [Independent interpretation of EKG shows] sinus rhythm 80 bpm with OR 108, QRS 89, QTc 424. Normal axis no acute ischemic changes.. Patient was given DuoNebs, 40 IV Lasix, 2 g ceftriaxone and azithromycin for symptomatic management[ and correction of underlying abnormalities]. Workup independently interpreted and significant for acute on chronic hyponatremia with sodium 127 down from 133 about 2 weeks prior to this. Urine sodium significantly elevated 156. VBG with nonactionable findings. pH 7.4/CO2 normal at 35/bicarb only mildly decreased at 22 with normal lactate. CBC nonactionable. Patient's BNP is elevated greater than 1600, this is new. On independent interpretation of imaging, patient has bilateral pleural effusions, bilateral pneumonia with right side worse than the left. See radiology read for full review of final results. Heart score 4. On reevaluation, patient resting comfortably, feeling little better after DuoNebs. I contacted hospital medicine 10:37 AM, stated he was in the middle of rounds and needed to call back. Reevaluation, patient states [facility] and because he [facility] all of his care [facility], [facility] of being [facility] and treated here, I feel this is appropriate. [place] was contacted around 10:50 AM. Given patient presentation, workup, history, this most likely represents new onset CHF, pneumonia, potentially paraneoplastic syndrome versus SIADH. Less likely ACS or VT given no chest complaints, normal cardiac workup. Also unlikely to be dissection given neurologically symmetric with the exception of known left lower extremity weakness as compared to right and painless presentation today. I feel this is also unlikely to be some kind of demyelinating disorder such as Guillain-Turner?. Patient has no back pain, no systemic signs or symptoms, no vomiting or diarrheal illnesses, no bowel or bladder dysfunction. [facility] and case was discussed at length with Dr. Mercedes, graciously accepted in transfer. 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 Electronic public relations assistant of the spoken language may permit errors. Although I have reviewed the note, some errors may still exist. Critical Care Critical Care Time Critical Care Time: Yes (Cardiac, meatbolic) Attestation: On 09/02/24, the high probability of a clinically significant, sudden or life threatening deterioration of the following system(s) required my full and direct attention, intervention and personal management. The time I documented below is in addition to time spent performing reported procedures but includes the following listed in this critical care notation. Total Time Total Critical Care Time: 35
[2024-09-02 09:35] LABS: Basophils % 0.3 % (0.1-2.0); Eosinophils # 0.7 Kmm3 (0.0-0.4); Eosinophils % 9.4 % (0.1-12.0); Hematocrit 29.7 % (42.0-52.0); Hemoglobin 9.9 g/dL (14.1-18.0); Immature Granulocytes # 0.01 10^3uL; Immature Granulocytes % 0.1 %; Lymphocytes # 1.6 K/mm3 (0.7-4.5); Lymphocytes % 22.3 % (10-50); Mean Corpuscular HGB Conc 33.3 g/dL (31.8-35.4); Mean Corpuscular Volume 84.1 fl (80-94); Monocytes # 0.6 K/mm3 (0.1-1.0); Neutrophils # 4.3 K/mm3 (1.8-7.8); Neutrophils % 59.9 % (37.0-80.0); Nucleated Red Blood Cells # 0 10^3/uL; Nucleated Red Blood Cells % 0 %; Platelet Count 225 K/mm3 (142-424); Red Blood Count 3.53 M/mm3 (4.60-6.20); Red Cell Distribution Width 14.6 % (11.5-17.5); Red Cell Distribution Width-SD 44.3 fL; White Blood Count 7.3 K/mm3 (4.8-10.8)
[2024-09-02 09:35] LABS: Lactate Venous 1.5 mmol/L (0.4-2.0); VBG Base Excess -2.3 mmol/L (-2.4-2.3); VBG HCO3 22.2 mmol/L (23-30); VBG Oxygen Saturation 95.6 % (50-70); VBG PCO2 34.8 mmol/L (35-51); VBG PH 7.42 mmol/L (7.31-7.41); VBG PO2 79.5 mmol/L (28-40); VBG Total CO2 23.2 mmol/L (23-27)
[2024-09-02 09:38] LABS: Albumin Level 2.6 g/dl (3.5-5.0); Chloride 99 mmol/L (98-107); Potassium 4.1 mmoL/L (3.5-5.1); Sodium 127 mmol/L (136-145)
[2024-09-02 09:41] LABS: Alanine Aminotransferase 24 U/L (12-78); Alkaline Phosphatase 116 U/L (38-126); Anion Gap 7.1 mEq/L (5-15); Aspartate Amino Transferase 22 U/L (17-59); Bilirubin,Total 0.9 mg/dl (0.2-1.3); Blood Urea Nitrogen 11 mg/dl (9-20); Calcium 9.3 mg/dl (8.4-10.2); Carbon Dioxide 25 mmol/L (22.0-30.0); Creatinine Clearance Estimated 94 mL/min (50-200); Estimated Glomerular Filt Rate 93 ml/min (>60); GFR (African American) 113 ML/MIN (>60); Globulin 2.5 g/dL (1.3-3.2); Glucose 147 mg/dl (74-100); Total Protein,Serum 5.1 g/dl (6.3-8.2)
[2024-09-02 09:42] LABS: Acetaminophen < 10 ug/ml (10-30); Activated Partial Thrombo Time 32.7 seconds (22.8-30.6)
--- NOTE | 2024-09-02 09:43 | PC.NURSE ---
pt noted to have a stage 2 to the top of gluteal cleftand shearing to golden buttocks. redness and excoriation to groin dressing applied to wound. pt cleaned
--- NOTE | 2024-09-02 09:43 | PC.NURSE ---
Patients rectal temp is 100.0.
[2024-09-02 09:45] LABS: Magnesium 1.7 mg/dl (1.6-2.3)
[2024-09-02 09:51] LABS: INR 1.34 (0.9-1.1); Prothrombin Time 14.6 seconds (10.1-12.5)
[2024-09-02 09:55] LABS: NT Pro Brain Natriuretic Pep. 1650 pg/mL (0-450)
[2024-09-02 09:57] LABS: Troponin I < 0.01 ng/ml (0.00-0.034)
[2024-09-02 09:59] LABS: T4 (Thyroxine) 7.7 ug/dl (5.53-11.0)
[2024-09-02 10:02] LABS: Creatine Kinase 21 U/L (55-170)
[2024-09-02] MEDS: CEFEPIME HCL 2 GM in 0.9 % SODIUM CHLORIDE 100 ML IV (10:13)
[2024-09-02] MEDS: FUROSEMIDE 40MG/4ML VIAL 40 MG IV (10:13)
[2024-09-02] MEDS: AZITHROMYCIN 250MG TABLET 500 MG PO (10:13)
--- NOTE | 2024-09-02 10:13 | ECG_ITS ---
APPROVED REPORT Exam: Resting ECG HR:80 bpm ECG Measurements Heart Rate 80 AXES AZ 108 P -9 QRSd 89 QRS 45 QT 388 T 65 QTc 424 Conclusion SINUS RHYTHM WITH SHORT AZ INTERVAL BORDERLINE ECG UNCONFIRMED REPORT Electronically signed by : SYDNIE MILLER, 09/03/2024 06:51:35
[2024-09-02] MEDS: IPRATROPIUM/ALBUTEROL 3 ML NEB 9 ML IH (10:15)
[2024-09-02 10:26] LABS: Microscopic, Urine URINE MICROSCOPIC (MICROSCOPIC)
[2024-09-02 10:37] LABS: Appearance,Urine SL CLOUDY (Clear); Bilirubin,Urine Negative (Negative); Blood, Urine TRACE-L (Negative); Color,Urine YELLOW (Yellow); Glucose,Urine (UA) Negative (Negative); Ketones,Urine Negative (Negative); Leukocyte Esterase,Urine 1+ (Negative); Nitrate,Urine Negative (Negative); Protein,Urine 1+ (Negative); Specific Gravity, Urine 1.025 (1.005-1.030)
--- NOTE | 2024-09-02 10:37 | PC.NURSE ---
Dr. Martinez spoke with about possible admission. Dr. León states he will call back.
[2024-09-02 10:46] LABS: Amphetamine/Metha Screen,Urine Negative ng/ml (<1000)
[2024-09-02 10:47] LABS: Barbiturates Screen,Urine Negative ng/ml (<200)
[2024-09-02 10:48] LABS: Benzodiazepines Screen,Urine Negative ng/ml (<200); Cannabinoid Screen,Urine Negative ng/ml (<50)
[2024-09-02 10:49] LABS: Cocaine Screen,Urine Negative ng/ml (<300)
[2024-09-02 10:50] LABS: Methadone Screen,Urine Negative ng/ml (<300); Phencyclidine Screen,Urine Negative ng/ml (<25)
[2024-09-02 10:51] LABS: Opiate Screen,Urine Positive ng/ml (<300)
--- NOTE | 2024-09-02 11:05 | PC.NURSE ---
Called the [place] transfer center and got a recording to leave the providers name, facility and a callback number.
--- NOTE | 2024-09-02 11:17 | PC.NURSE ---
[facility]ed [facility] to see about getting [facility] for a new onset of CHF, Bi-lateral Pneu, Hyponatremia. [facility] advised that they would call back
[2024-09-02 11:26] LABS: RBC,Urine Occasional #/hpf (0-3); Squamous Epithelial Cell,Urine Occasional #/hpf (0-5); WBC,Urine 20-50 #/hpf (0-3)
--- NOTE | 2024-09-02 11:26 | PC.NURSE ---
TRN spoke with ilene with [facility], she will get with accepting MD and speak with them, then give us a call back .
[2024-09-02 11:27] LABS: Bacteria,Urine 2+ /lpf; Yeast,Urine 2+ /lpf
--- NOTE | 2024-09-02 11:44 | PC.NURSE ---
JOSEPH called and is speaking with Dr Martinez at this time
[2024-09-02 11:57] LABS: Coronavirus 19, PCR Not Detected (NotDetected); Influenza A, PCR Not Detected (NotDetected); Influenza B, PCR Not Detected (NotDetected)
--- NOTE | 2024-09-02 12:52 | PC.NURSE ---
Maude speaking with [place] inquiring about a bed
--- NOTE | 2024-09-02 13:28 | PC.NURSE ---
Patients said that patient stated he needed to be changed again. GUERITA Wu, GUERITA Andre, GUERITA Galdamez and myself changed the patient, his bed and Put a new Mepalex on him for his wound.
--- NOTE | 2024-09-02 13:38 | PC.NURSE ---
EMS was called and advised of the transfer
--- OUTSIDE RECORDS SUMMARY | 2024-09-14 20:00 | XMS_ITS | Clinical Summary ---
Author Organization Unknown Care Team Providers Care Sales Account Director Name Role Phone [place] Unavailable Unavailable TAMMIE PTANNA Unavailable Unavailable TEJA PARIS LAGUNAS Unavailable Unavailable JASVIR OTMEI Unavailable Unavailable Payers Payer Name Policy Type Policy Number Effective Date Expira tion Date [facility].OPTUM.VACCN.PDGM.[facility] [id number] MEDICARE.[place] [id number] Problems Condition Name Condition Details Condition Category Status Onset Date Resolution Date Last Treatment Date Treating Clinician Comments UNSP FX SHAFT OF R FIBULA, SUBS FOR CLOS FX W ROUTN HEAL Active 03-24 00:00: 00 TYPE 2 DIABETES MELLITUS WITH DIABETIC POLYNEUROPAT HY Active 03-24 00:00: 00 MULTIPLE SCLEROSIS Active 03-24 00:00: 00 OTHER CHRONIC PAIN Active 03-24 00:00: 00 GASTRO-ESOPH AGEAL REFLUX DISEASE WITHOUT ESOPHAGITIS Active 03-24 00:00: 00 ESSENTIAL (PRIMARY) HYPERTENSION Active 03-24 00:00: 00 CHRONIC OBSTRUCTIVE PULMONARY DISEASE, UNSPECIFIED Active 03-24 00:00: 00 UNSPECIFIED MACULAR DEGENERATION Active 03-24 00:00: 00 CARCINOMA IN SITU OF PROSTATE Active 03-24 00:00: 00 MIXED INCONTINENCE Active 03-24 00:00: 00 UNSPECIFIED FALL, SUBSEQUENT ENCOUNTER Active 03-24 00:00: 00 ALF (CURRENT) USE OF ASPIRIN Active 03-24 00:00: 00 Allergies, Adverse Reactions, Alerts Allergy Name Allergy Type Status Severity Reaction(s) Onset Date Inactive Date Treating Clinician Comments NO KNOWN ALLERGIES Propensity to adverse reactions Active 2 12:14: 51 Medications Ordered Medication Name Filled Medication Name Start Date Stop Date Current Medication? Ordering Clinician Indication Dosage Frequency Signature (SIG) Comments Components Aspirin Childrens 81 mg chewable tablet 2- 00:00: 00 Yes [id number] ANTICOAGULA NT TOXICITY 1 tablet DAILY 1 tablet DAILY (route: oral) Med Classific ation: Hematolog ical Agents atorvastati n 20 mg tablet - 00:00: 00 Yes [id number] CHOLESTEROL 1 tablet BEDTIME 1 tablet BEDTIME (route: oral) Med Classific ation: Cardiovas cular Therapy Agents bisoprolol fumarate 5 mg tablet - 00:00: 00 Yes [id number] BLOOD PRESSURE 1 tablet DAILY 1 tablet DAILY (route: oral) Med Classific ation: Cardiovas cular Therapy Agents cholecalcif tanesha (vitamin D3) 50 mcg (2,000 unit) chewable tablet 04-24 00:00: 00 Yes [id number] SUPPLEMENT 1 tablet 2 TIMES DAILY 1 tablet 2 TIMES DAILY (route: oral) Med Classific ation: Electroly te Balance-N utritiona l Products cyanocobala min (vit B-12) 1,000 mcg tablet - 00:00: 00 Yes [id number] SUPPLEMENT 1 tablet DAILY 1 tablet DAILY (route: oral) Med Classific ation: Electroly te Balance-N utritiona l Products famotidine 20 mg tablet 04-24 00:00: 00 Yes [id number] STOMACH 1 tablet 2 TIMES DAILY 1 tablet 2 TIMES DAILY (route: oral) Med Classific ation: Gastroint estinal Therapy Agents Fiber (psyllium husk) 0.52 gram capsule 2- 00:00: 00 Yes [id number] BOWELS 1 capsule DAILY 1 capsule DAILY (route: oral) Med Classific ation: Gastroint estinal Therapy Agents gabapentin 100 mg capsule 2- 00:00: 00 Yes [id number] NERVE PAIN 1 capsule 4 TIMES DAILY 1 capsule 4 TIMES DAILY (route: oral) Med Classific ation: Central Nervous System Agents metformin 500 mg tablet 2- 00:00: 00 Yes [id number] DM 1 tablet DAILY 1 tablet DAILY (route: oral) Med Classific ation: Endocrine methenamine hippurate 1 gram tablet - 00:00: 00 Yes [id number] UTI 1 tablet 2 TIMES DAILY 1 tablet 2 TIMES DAILY (route: oral) Med Classific ation: Genitouri nary Therapy polyethylen e glycol 3350 17 gram/dose oral powder 04-24 00:00: 00 Yes [id number] BOWELS 17 gram DAILY 17 gram DAILY (route: oral) Med Classific ation: Gastroint estinal Therapy Agents PreserVisio n AREDS 4,296 mcg-226 mg-90 mg capsule - 00:00: 00 Yes [id number] SUPPLEMENT 2 capsule DAILY 2 capsule DAILY (route: oral) Med Classific ation: Electroly te Balance-N utritiona l Products silodosin 8 mg capsule 04-24 00:00: 00 Yes [id number] BPH 1 capsule DAILY 1 capsule DAILY (route: oral) Med Classific ation: Genitouri nary Therapy cefuroxime axetil 500 mg tablet - 00:00: 00 08-13 23:59 :00 No [id number] UTI 1 tablet 2 TIMES DAILY 1 tablet 2 TIMES DAILY (route: oral) Med Classific ation: Anti-Infe ctive Agents Immunizations Ordered Immunization Name Filled Immunization Name Date Status Comments Refusal Reason INFLUENZA, TIV (INACTIVATED) 2024-03-01 00:00:00 PNEUMOCOCCAL (PPV), PPV 2021-06-06 00:00:00 Vital Signs Vital Name Observation Time Observation Value Commen ts Temperature 2024-08-09 15:53:00.000 96.9 [degF] Temperature 2024-08-02 12:01:00.000 97.8 [degF] Temperature 2024-07-26 12:14:00.000 97.3 [degF] Temperature 2024-07-19 10:43:00.000 97.6 [degF] Pulse 2024-08-09 15:53:00.000 72 /min Pulse 2024-08-02 12:01:00.000 62 /min Pulse 2024-07-26 12:14:00.000 57 /min Pulse 2024-07-19 10:43:00.000 64 /min O2 Saturation (%) 2024-08-09 15:54:00.000 94 % O2 Saturation (%) 2024-08-02 12:01:00.000 98 % O2 Saturation (%) 2024-07-26 12:14:00.000 98 % O2 Saturation (%) 2024-07-19 10:43:00.000 96 % Respirations 2024-08-09 15:53:00.000 12 /min Respirations 2024-08-02 12:01:00.000 17 /min Respirations 2024-07-26 12:14:00.000 17 /min Respirations 2024-07-19 10:43:00.000 17 /min Systolic Blood Pressure 2024-08-09 15:53:00.000 138 mm [Hg] Systolic Blood Pressure 2024-08-02 12:01:00.000 116 mm [Hg] Systolic Blood Pressure 2024-07-26 12:14:00.000 108 mm [Hg] Systolic Blood Pressure 2024-07-19 10:43:00.000 128 mm [Hg] Diastolic Blood Pressure 2024-08-09 15:53:00.000 64 mm [Hg] Diastolic Blood Pressure 2024-08-02 12:01:00.000 76 mm [Hg] Diastolic Blood Pressure 2024-07-26 12:14:00.000 68 mm [Hg] Diastolic Blood Pressure 2024-07-19 10:43:00.000 62 mm [Hg] Plan of Treatment Planned Activity Planned Date Details Comments Future Scheduled Test PT/REAL ESTATE INSPECTOR TO PROVIDE GAIT TRAINING FOR IMPROVED MOBILITY AND /OR TO NORMALIZE GAIT PATTERN [code = PT/REAL ESTATE INSPECTOR TO PROVIDE GAIT TRAINING FOR IMPROVED MOBILITY AND /OR TO NORMALIZE GAIT PATTERN] Future Scheduled Test THERAPEUTI C EXERCISES AND ESTABLISHING A HOME EXERCISE PROGRAM (PT/REAL ESTATE INSPECTOR) [code = THERAPEUTIC EXERCISES AND ESTABLISHING A HOME EXERCISE PROGRAM (PT/REAL ESTATE INSPECTOR)] Future Scheduled Test PT/REAL ESTATE INSPECTOR TO IDENTIFY FALL RISK FACTORS; EDUCATE THE PATIENT/CAREGIVER ON WAYS TO REDUCE FALL RISK FACTORS AND ESTABLISH HOME EXERCISE PROGRAM TO MINIMIZE FALL RISK. MAY TEACH THE PATIENT FLOOR RECOVERY WHEN CLINICALLY APPROPRIATE [code = PT/REAL ESTATE INSPECTOR TO IDENTIFY FALL RISK FACTORS; EDUCATE THE PATIENT/CAREGIVER ON WAYS TO REDUCE FALL RISK FACTORS AND ESTABLISH HOME EXERCISE PROGRAM TO MINIMIZE FALL RISK. MAY TEACH THE PATIENT FLOOR RECOVERY WHEN CLINICALLY APPROPRIATE] Future Scheduled Test SIT TO/FRO M STAND TRANSFERS (PT/REAL ESTATE INSPECTOR) [code = SIT TO/FROM STAND TRANSFERS (PT/REAL ESTATE INSPECTOR)] Future Scheduled Test PT TO ASSE SS / REAL ESTATE INSPECTOR TO MONITOR CARDIO/RESPIRATORY SYSTEM; AND NOTIFY THE PHYSICIAN AND/OR THE RN CLINICAL APPLIANCE PAINTER AND REFINISHER FOR PHYSICIAN NOTIFICATION FOR EARLY SIGNS AND SYMPTOMS OF EXACERBATION OR DETERIORATION. [code = PT TO ASSESS / REAL ESTATE INSPECTOR TO MONITOR CARDIO/RESPIRATORY SYSTEM; AND NOTIFY THE PHYSICIAN AND/OR THE RN CLINICAL APPLIANCE PAINTER AND REFINISHER FOR PHYSICIAN NOTIFICATION FOR EARLY SIGNS AND SYMPTOMS OF EXACERBATION OR DETERIORATION.] Future Scheduled Test PT / REAL ESTATE INSPECTOR T O MONITOR AND EDUCATE ON OXYGEN SATURATION DURING ADLS/IADLS, NOTIFY PHYSICIAN AND/OR THE RN CLINICAL APPLIANCE PAINTER AND REFINISHER FOR PHYSICIAN NOTIFICATION AND IF O2 SATS BELOW PHYSICIAN ORDERED PARAMETERS AFTER 10 MIN OF REST [code = PT / REAL ESTATE INSPECTOR TO MONITOR AND EDUCATE ON OXYGEN SATURATION DURING ADLS/IADLS, NOTIFY PHYSICIAN AND/OR THE RN CLINICAL APPLIANCE PAINTER AND REFINISHER FOR PHYSICIAN NOTIFICATION AND IF O2 SATS BELOW PHYSICIAN ORDERED PARAMETERS AFTER 10 MIN OF REST] Future Scheduled Test PT / REAL ESTATE INSPECTOR T O MONITOR FOR HYPO/HYPERGLYCEMIA AND CONDUCT ROUTINE FOOT INSPECTIONS. RECORD PATIENT REPORTED BLOOD SUGAR LEVELS AND NOTIFY PHYSICIAN AND/OR THE RN CLINICAL APPLIANCE PAINTER AND REFINISHER FOR PHYSICIAN NOTIFICATION IF BLOOD SUGAR LEVELS ARE OUTSIDE ORDERED PARAMETERS. TEACH PATIENT/CAREGIVER ON DAILY FOOT INSPECTIONS [code = PT / REAL ESTATE INSPECTOR TO MONITOR FOR HYPO/HYPERGLYCEMIA AND CONDUCT ROUTINE FOOT INSPECTIONS. RECORD PATIENT REPORTED BLOOD SUGAR LEVELS AND NOTIFY PHYSICIAN AND/OR THE RN CLINICAL APPLIANCE PAINTER AND REFINISHER FOR PHYSICIAN NOTIFICATION IF BLOOD SUGAR LEVELS ARE OUTSIDE ORDERED PARAMETERS. TEACH PATIENT/CAREGIVER ON DAILY FOOT INSPECTIONS] Future Scheduled Test PT / REAL ESTATE INSPECTOR M AY EDUCATE ON PAIN MANAGEMENT CLINICALLY INDICATED, INCLUDING NON-PHARMACOLOGICAL PAIN REDUCTION TECHNIQUES [code = PT / REAL ESTATE INSPECTOR MAY EDUCATE ON PAIN MANAGEMENT CLINICALLY INDICATED, INCLUDING NON-PHARMACOLOGICAL PAIN REDUCTION TECHNIQUES] Future Scheduled Test AGENCY MAY PERFORM A RESUMPTION OF CARE VISIT FOLLOWING ANY HOSPITAL ADMISSION. PT TO EVALUATE, OBSERVE / ASSESS, AND MONITOR, REAL ESTATE INSPECTOR TO OBSERVE AND MONITOR, PROVIDE SKILLED THERAPEUTIC INTERVENTION, ACTIVITY, EDUCATION, AND TRAINING TO ADDRESS; [code = AGENCY MAY PERFORM A RESUMPTION OF CARE VISIT FOLLOWING ANY HOSPITAL ADMISSION. PT TO EVALUATE, OBSERVE / ASSESS, AND MONITOR, REAL ESTATE INSPECTOR TO OBSERVE AND MONITOR, PROVIDE SKILLED THERAPEUTIC INTERVENTION, ACTIVITY, EDUCATION, AND TRAINING TO ADDRESS;] Future Scheduled Test NEUROMUSCU LAR RE-EDUCATION / BALANCE / POSTURAL CONTROL (PT) [code = NEUROMUSCULAR RE-EDUCATION / BALANCE / POSTURAL CONTROL (PT)] Goal 2024-07-13 Patient Goal - W ALK BETTER, LESS PAIN, GET SOMETHING DONE ABOUT THE KNEE Goal Patient Goal - W ALK BETTER, LESS PAIN, GET SOMETHING DONE ABOUT THE KNEE Goal Provider Goal - PT STG: AMBULATION TO PROGRESS FROM SBA TO SUPERVISION ASSISTANCE AND FROM 75 TO 150 FT WITHIN 4 WEEKS. PT LTG: AMB TO PROGRESS TO IND AND SAFE X 200 FT WITH IMPROVED GAIT PATTERN WITHIN 9 WEEKS. PT LTG: PATIENT WILL DEMONSTRATE REDUCED FALL RISK EVIDENCED BY IMPROVED SELF- SELECTED WALKING SPEED (SSWS CUT SCORE 0.6 TO 0.9 INDICATES MODERATE FALL RISK, 0.6 M/S INDICATES HIGH FALL RISK) FROM 0.5 TO 0.7 M/S WITHIN 9 WEEKS. Goal Provider Goal - PT STG: RLE TO PROGRESS FROM +3 TO -4/5 WITHIN 4 WEEKS. PT LTG: PATIENT WILL DEMONSTRATE INCREASED STRENGTH OF RLE FROM +3 TO 4/5 THROUGHOUT WITHIN 9 WEEKS IN ORDER TO SAFELY COMPLETE MOBILITY AND ADL'S. Goal Provider Goal - PT LTG: PATIENT/CAREGIVER WILL DEMONSTRATE ADHERENCE TO FALL REDUCTION SELF-MANAGEMENT AND REDUCING FALL RISK FACTORS TO MINIMIZE FALL RISK BY END OF EPISODE. Goal Provider Goal - PT STG: PATIENT WILL DEMONSTRATE IMPROVED ABILITY TO PERFORM SIT TO/FROM STAND TRANSFERS TO REDUCE THE RISK OF SKIN BREAKDOWN AND REDUCE FALL RISK FROM SBA TO SUPERVISION ASSISTANCE WITHIN 4 WEEKS. PT LTG: TRANSFERS TO PROGRESS TO IND AND SAFE WITHIN 7 WEEKS. Goal Provider Goal - PT LTG: PATIENT WILL NOT EXPERIENCE CARDIAC OR RESPIRATORY COMPLICATIONS THROUGHOUT THE EPISODE OF CARE. Goal Provider Goal - PT LTG: PATIENT WILL MAINTAIN OXYGEN SATURATION WITHIN PHYSICIAN ORDERED PARAMETERS THROUGHOUT EPISODE OF CARE. Goal Provider Goal - PATIENTS BLOOD SUGAR WILL REMAIN WELL CONTROLLED WITH SELF-MANAGEMENT THROUGHOUT EPISODE OF CARE. Goal Provider Goal - PT GOAL: PATIENT WILL DEMONSTRATE UNDERSTANDING OF PAIN MANAGEMENT TECHNIQUES EVIDENCED BY REDUCED PAIN WITHIN 4 WEEKS. Goal Provider Goal - Goal Provider Goal - PT LTG: PATIENT WILL DEMONSTRATE REDUCED FALL RISK WITH SUFFICIENT BALANCE CONTROL TO PREVENT FALLS OR LOSS OF BALANCE THROUGHOUT COURSE OF THERAPY SERVICES. Encounters Start Date/Time End Date/Time Encounter Type Admission Type Attending [facility] Care Department Encounter ID Discharge Date Discharge Status Discharge Condition Discharge Reason Percent Goals Met 2024-07-18 00:00:00 2024-09-15 00:00:00 Outpatient RECERTIFIC ANNA YIP [facility] [id number]
== END 2024-09-02 14:39 | disposition short-term general hospital (02) ==
PROVIDERS: Emergency Provider Emergency Medicine; PCP Family Medicine
DX: J18.9 Pneumonia, unspecified organism (principal); J90 Pleural effusion, not elsewhere classified; I50.9 Heart failure, unspecified; E87.1 Hypo-osmolality and hyponatremia; R53.1 Weakness; R55 Syncope and collapse; I11.0 Hypertensive heart disease with heart failure; Z87.891 Personal history of nicotine dependence
CPT/HCPCS: 71250; 80053; 80307; 80329; 81001; 82550; 82803; 83735; 83880; 84436; 84443; 84484; 84540; 85025; 85610; 85730; 87040; 87086; 87636; 93005; 96361; 96374; 99291; J0692; J1938

== ENCOUNTER 2024-09-22 09:54 | Emergency (ER) | payer OTHER, SELFPAY ==
--- OUTSIDE RECORDS SUMMARY | 2024-05-18 08:46 | XMS_ITS | Encounter Summary ---
Author Name [facility] [place] [facility] [place] Address [address] [place] [address] Care Team Providers Care Manager Of Engineering Name Role Phone YULISSA HENDERSON Primary Care Provider Unavailab JAMES Almanza Unavailable Unavailable Insurance Providers: All historical and current Section Date Range: From patient's date of to the date document was created. This section includes the names of all active insurance providers for the patient. Insurance Provider Type of Coverage Plan Name Start of Policy Coverage End of Policy Coverage Group Number Member ID Insurance Provider's Telephone Number Policy Munoz's Name Patient's Relationship to Policy Munoz AARP MED SUPP MEDIGAP PLAN F PLAN F Mar 24, 2014 PLAN F [id number] LUIS MANUEL PERDOMO PATIENT [facility] [place] [employer] PREFERRED PROVIDER ORGANIZAT ION (PPO) [facility] Sep 21, 2012 [id number] [phone] LUIS MANUEL PERDOMO PATIENT [employer] ([id number]) PRESCRIPT ION [id number] Sep 21, 2012 [id number] [phone] LUIS MANUEL PERDOMO PATIENT MEDICARE (WNR) MEDICARE (M) PART B Sep 21, 2012 PART B [id number] NOEMI PERDOMO PATIENT MEDICARE (WNR) MEDICARE (M) PART A Jan 22, 2011 PART A [id number] [phone] NOEMI PERDOMO PATIENT MEDICARE PART D (WNR) MEDICARE (M) PART D Mar 24, 2014 PART D [id number] LUIS MANUEL PERDOMO PATIENT Selected Encounter This section includes the information on record at [place] for the Encounter. Date/Time Encounter Type Encounter Description Reason Provider Source May 18, 2024 12:46 PM NQHP OL DIG ASSMT&MGMT 11-20 [facility] - CLINICAL PHARMACIST ICD-10-CM Z79.899 Other long-term (current) drug therapy JANAE CEJA IHStephen Encounter Template Text not used by [place] Assessments - Encounter Diagnoses This section includes the primary and secondary diagnoses documented for the Encounter. 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 This section includes future appointments and future orders which are active, pending or scheduled. Future Appointments This section includes appointments that were scheduled to occur 6 months from the date of the Encounter, up to a maximum of 20 appointments. The data comes from all [facility]. Appointment Date/Time Appointment Type Appointme nt Facility Name Aug 29, 2024 07:38 PM [facility] Aug 29, 2024 09:00 PM AMBULATORY - NONE [facility] Sep 13, 2024 08:00 AM AMBULATORY - NONE [facility] Sep 30, 2024 01:30 PM AMBULATORY - SURGERY AAMIRIN MARIA EUGENIA [facility] Active, Pending, and Scheduled Orders This section includes a listing of several types of active, pending, and scheduled orders, including clinic medications orders, diagnostic test orders, procedure orders and consult orders; where the start date of the order is 45 days before the date of the Encounter or 45 days after the date of theEncounter. The data comes from all [facility]. Test Date/Time Test Type Test Details Facility Name Jun 08, 2024 11:04 AM Consult Order ORTHO KNEE OUTPATIENT Cons Lead Sales Consultant's Choice [facility] Lab Results: +/- 30 days of the encounter This section includes the Chemistry and Hematology Lab Results on record with [place] for the patient. Radiology Reports and Pathology Reports are provided separately, in subsequent sections. Lab Results This section contains the Chemistry/Hematology Results that were resulted 30 days before or 30 daysafter the date of the Encounter. Date/Time Source Result Type Result - Unit Interpretation Reference Range Specimen Type Comment May 25, 2024 11:30 AM [facility] IRON/TIBC PLASMA Specimen Type: PLASMA No comment entered. Ordering Provider: YULISSA HENDERSON Report Released Date/Time: Apr 22, 2024 08:13 AM Reporting Lab: [address] [address] Performing Lab: [address] [address] IRON 53 ug/dL L 65-175 TIBC 233 mg/dL L 250-425 IRON SATURATION 23 20-50 May 25, 2024 11:30 AM [facility] FERRITIN PLASMA Specimen Type: PLASMA No comment entered. Ordering Provider: YULISSA HENDERSON Report Released Date/Time: Apr 22, 2024 08:13 AM Reporting Lab: [address] [address] Performing Lab: [address] [address] FERRITIN 141.1 ng/mL 21.8-274.7 May 25, 2024 11:30 AM [facility] CBC/PLT BLOOD Specimen Type: BLOOD No comment entered. Ordering Provider: YULISSA HENDERSON Report Released Date/Time: Apr 22, 2024 08:13 AM Reporting Lab: [address] [address] Performing Lab: [address] [phone] WBC 9.6 10*3/uL 5.0-10.0 RBC 4.00 10*6/uL L 4.6-6.2 HGB 11.3 g/dL L 14.0-18.0 HCT 35.0 L 42.0-52.0 MCV 87.5 fL 80.0-94.0 MCH 28.3 pg 27.0-31.0 MCHC 32.3 g/dL 32.0-36.0 PLT 232 10*3/uL 150-450 MPV 11.0 fL 9.0-13.1 RDW 15.4 11.0-16.0 NRBC 0.0 0.0-0.0 Advance Directives: All historical and current Section Date Range: From patient's date of to the date document was created. This section includes ALL of a patient's completed or amended [place] Advance and Rescinded Directives. The entries below indicate that a directive exists for the patient, but an actual copy is not included with this document. The data comes from all [place] facilities. Date Advance Directives Provider Source Mar 08, 2024 ADVANCE DIRECTIVE DISCUSSION [facility] Radiology Reports: +/- 30 days of the encounter Radiology Reports For cases when an order for radiology services may have been completed prior to the date of the Encounter, the report list includes the Radiology Reports that were completed up to 30 days before dateof the Encounter. For cases when an order for radiology services may have been completed after the date of the Encounter, the report list also includes the Radiology Reports that were completed up to30 days after date of the Encounter. The data comes from all [place] treatment facilities. 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 Loc) [facility] [place]: [facility] RADIOLOGY Service: Unknown [facility] [place] [address] (Case [id number] COMPLETE) ORTHO [id number],SUN,TUNL,W/B (RAD Detailed) CPT:25568 Reason for Study: chronic pain right knee Clinical History: patient reports outside xrays show bone on bone Report Status: Verified Date Reported: JUN 01, 2024 Date Verified: JUN 01, 2024 Human Resources Analyst E-Sig: Report: ORTHO [id number]-[id number],SUN,TUNL,W/B OTH AP STANDING, 05/31/2024 11:07 AM EDT INDICATION: chronic pain right knee COMPARISON: None Impression: Right knee: No acute fracture or malalignment. Moderate tricompartmental degenerative change. Small inferior patellar pole enthesophyte. Vascular calcifications. 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 Primary Diagnostic Code: NO ALERT REQUIRED Primary Interpreting Staff: PINKY OBRIEN, Staff Physician Verified by butcher head for PINKY OBRIEN /PINKY SINGH [facility] Encounter Notes: All associated encounter notes This section contains the clinical notes associated to the Encounter. Date/Time Encounter Note(s) Provider Source May 18, 2024 12:46 PM PHARMACY HOME [facility] NOTE: LOCAL TITLE: [facility] PHARMACY NOTE STANDARD TITLE: PHARMACY HOME [facility] E [facility] M NOTE DATE OF NOTE: MAY 18, 2024@12:46 ENTRY DATE: MAY 18, 2024@12:47:14 AUTHOR: EM JJ COSIGNER: JANAE CEJA URGENCY: STATUS: COMPLETED [facility] NOTE Has ADDENDA PMH: 1. Gastroesophageal reflux disease without esophagitis 2. Constipation 3. Multiple sclerosis 4. Age related macular degeneration 5. Closed fracture of shaft of right fibula 6. Incontinence 7. Type 2 diabetes mellitus 8. Essential hypertension 9. Hyperlipidemia 10. Carcinoma of prostate 11. Pain of right knee joint Allergies: Patient has answered NKA VS: SVS - Vital Signs Selected 04/21/24 Temperature: 98.4 F (36.9 C) Pulse: 60 Respirations: 16 Blood Pressure: 126/64 Immunizations: IM - Immunizations ADMINISTERED Immunization Series Date Facility Reaction Info COVID-19 (MODERNA), MRNA, LNP-S,* 6 01/30/2023 [facility] HEP A, ADULT 2 09/01/2018 [facility] A, ADULT 1 12/29/2017 [facility] HEPB-CPG 2 11/26/2018 [facility] HEPB-CPG 1 10/29/2018 [facility] INFLUENZA, UNSPECIFIED FORMULATI* 01/05/2024 Home [facility] RECOMBINANT 1 01/04/2019 [facility] Medications: Active and Recently Outpatient Medications (including Supplies): Active Outpatient Medications Status 1) BRIEF,TRANQ ALEX OVERNITE XL#2117 PULLUP USE 1 BRIEF ACTIVE DIRECTED THREE TIMES A DAY Indication: FOR INCONTINENCE 2) GLOVE VINYL MEDIUM PWDR-FREE NONSTERILE USE GLOVE ACTIVE DIRECTED FOUR TIMES A DAY Indication: CLEANING 3) MEDICATION DISPOSAL PATIENT PKT USE 1 PACKET DIRECTED ACTIVE Indication: FOR RETURNING MEDICATIONS 4) UNDERPAD,BED [id number] TRANQUILITY-2710 USE UNDERPAD ACTIVE DIRECTED THREE TIMES A DAY NEEDED Pending Outpatient Medications Status 1) CLOTRIMAZOLE 1% TOP CREAM APPLY SMALL AMOUNT TO AFFECTED PENDING AREA THREE TIMES A DAY NEEDED Indication: FOR FUNGAL INFECTION 2) DICLOFENAC NA 1% TOP GEL APPLY 2 GRAM STRIP TO AFFECTED AREA PENDING EVERY 6 HOURS NEEDED Indication: FOR PAIN 3) HYDROPHILIC (EQV EUCERIN) TOP CREAM APPLY SMALL AMOUNT TO PENDING AFFECTED AREA NEEDED Indication: FOR DRY SKIN 4) IPRATROPIUM BR 0.03% NASAL SPRAY SPRAY 1 SPRAY IN NOSE WITH PENDING MEALS Indication: FOR NASAL ALLERGIES Active Non-VA Medications Status 1) Non-VA ASPIRIN 81MG CHEW TAB 81MG MOUTH DAILY ACTIVE Indication: FOR HEART 2) Non-VA ATORVASTATIN CALCIUM TAB 20MG 20MG MOUTH AT BEDTIME ACTIVE Indication: FOR CHOLESTEROL 3) Non-VA BISOPROLOL FUMARATE 5MG TAB 5MG MOUTH DAILY ACTIVE Indication: FOR BLOOD PRESSURE/HEART 4) Non-VA CHOLECALCIF 10MCG (D3-400UNIT) TAB 10MCG MOUTH DAILY ACTIVE Indication: FOR VITAMIN D SUPPLEMENT 5) Non-VA CHOLECALCIF 50MCG (D3-2,000UNIT) TAB 50MCG MOUTH ACTIVE TWICE A DAY Indication: FOR VITAMIN D SUPPLEMENT 6) Non-VA FAMOTIDINE 20MG TAB 20MG MOUTH TWICE A DAY NEEDED ACTIVE Indication: FOR STOMACH 7) Non-VA GABAPENTIN TAB 100MG MOUTH FOUR TIMES A DAY ACTIVE Indication: FOR NERVE PAIN 8) Non-VA LEUPROLIDE (ELIGARD) 45MG(6 MONTH)LA INJ 45MG (1 ACTIVE DOSE) UNDER THE SKIN ONCE Indication: FOR PROSTATE CANCER 9) Non-VA METFORMIN HCL 500MG 24HR SA TAB 500MG MOUTH DAILY ACTIVE Indication: FOR BLOOD SUGAR 10) Non-VA METHENAMINE HIPPURATE 1GM TAB 1GM MOUTH TWICE A DAY ACTIVE Indication: FOR INFECTION 11) Non-VA OCRELIZUMAB INJ,SOLN INTO THE VEIN DIRECTED ACTIVE Indication: FOR MULTIPLE SCLEROSIS 12) Non-VA POLYETHYLENE GLYCOL 3350 ORAL PWDR 17 GRAMS (ONE ACTIVE CAPFUL FILLED TO LINE) IN LIQUID MOUTH DAILY Indication: FOR CONSTIPATION 13) Non-VA PRESERVISION AREDS VITAMIN 2 CAPSULES MOUTH DAILY ACTIVE Indication: UNKNOWN 14) Non-VA PSYLLIUM 520MG CAP 1 CAPSULE MOUTH DAILY ACTIVE Indication: UNKNOWN 15) Non-VA SILODOSIN 8MG ORAL CAP 8MG MOUTH DAILY ACTIVE Indication: FOR PROSTRATE Labs: PANEL 1 Nanci. date GLUCOSE BUN CREAT SODIUM K CHLOR CO2 02/17/24 12:15 119 H 13 0.87 133 L 4.4 100 23 PANEL 2 Nanci. date TOT PRO ALBUMIN SGOT SGPT Z ALK PHZ DIRECTZ TOTAL 02/06/24 12:24 6.1 L 3.4 L 15 22 127 0.8 CBC/PLT, BLOOD - Partial Panel found WBC , BLOOD, 02/06/24@1224 7.7 K/cmm (5.0 - 10.0) RBC, BLOOD, 02/06/24@1224 4.27 LM/cmm (4.6 - 6.2) HGB, BLOOD, 02/06/24@1224 12.2 Lg/dL (14.0 - 18.0) HCT, BLOOD, 02/06/24@1224 37.5 L% (42.0 - 52.0) MCV, BLOOD, 02/06/24@1224 87.8 fL (80.0 - 94.0) MCH, BLOOD, 02/06/24@1224 28.6 pg (27.0 - 31.0) MCHC, BLOOD, 02/06/24@1224 32.5 g/dL (32.0 - 36.0) RDW, BLOOD, 02/06/24@1224 14.0 % (11.0 - 16.0) PLT, BLOOD, 02/06/24@1224 236 K/cmm (150 - 450) MPV, BLOOD, 02/06/24@1224 11.0 fL (9.0 - 13.1) NRBC, BLOOD, 02/06/24@1224 0.0 % (0.0 - 0.0) Lipid Prof Nanci. date CHOL TRIG HDL LIPID PHLDL CHOLSERUM AP 02/06/24 12:24 136 154 H 37 L Z GLYCOHEMOGLOBIN (HPLC) 02/06/24 12:24 6.4 TSH: 0.6365 mIU/mL (02/06/2024 12:24) B-12/FOLATE: Collection DT Specimen Test Name Result Units Ref Range 02/06/2024 12:24 PLASMA!! B12 VITAMIN >2000 H pg/mL 213 - 816 Vitamin D: Collection DT Specimen Test Name Result Units Ref Range 02/06/2024 12:24 SERUM !! 25-OH VITAMIN D 50.7 H ng/mL 20.0 - 50.0 Estimated CrCl: >100 ml/min (ABW and Scr); 77 ml/min (Scr=1, eGFR adj for BW) Lipid Goal: moderate-dose statin (DM+HTN) - met (atorva) BP Goal: <140/90 (DM) - met A1c Goal: <8% (age/comorbidities) - met Medication Outcomes VA meds: (pending) clotrimazole 1% cream apply small amt to AA TID PRN: fungal infxn diclofenac 1% gel apply 2 gm to AA Q6H PRN: pain hydrophilic cream apply small amt to AA PRN: dry skin ipratropium br 0.03% nasal spray 1 spray in nose with meals: allergies NonVA meds: ASPIRIN 81MG CHEW TAB DAILY: cardio protection in DM ATORVASTATIN CALCIUM TAB 20MG AT BEDTIME: cardio protection BISOPROLOL FUMARATE 5MG TAB DAILY: BLOOD PRESSURE/HEART CHOLECALCIF 10MCG (D3-400UNIT) TAB DAILY: VITAMIN D SUPPLEMENT CHOLECALCIF 50MCG (D3-2,000UNIT) TAB 50MCG TWICE A DAY: VITAMIN D SUPPLEMENT FAMOTIDINE 20MG TAB TWICE A DAY NEEDED: GERD GABAPENTIN TAB 100MG FOUR TIMES A DAY: NERVE PAIN LEUPROLIDE (ELIGARD) 45MG(6 MONTH)LA INJ 45MG: PROSTATE CANCER METFORMIN HCL 500MG 24HR SA TAB DAILY: DM METHENAMINE HIPPURATE 1GM TAB TWICE A DAY: UTI px OCRELIZUMAB INJ,SOLN INTO THE VEIN DIRECTED: MULTIPLE SCLEROSIS POLYETHYLENE GLYCOL 3350 ORAL PWDR 17 GRAMS DAILY: CONSTIPATION PRESERVISION AREDS VITAMIN 2 CAPSULES DAILY: ARMD PSYLLIUM 520MG CAP 1 CAPSULE DAILY: constipation SILODOSIN 8MG ORAL CAP DAILY: PROSTATE *NonVA Uro Dr. Dave Diamond *NonVA PCP Bertha alberto Chloe New therapies/medication changes since last Pharmacy review: - CYANOCOBALAMIN 1000MCG TAB DAILY: VITAMIN B12 SUPPLEMENT (d/c'd on 04/22/24 d/t high vit B level) - clotrimazole 1% cream (new on 05/18) - diclofenac 1% gel (new on 05/18) - hydrophilic cream (new on 05/18) - ipratropium br 0.03% nasal spray (new on 05/18) Plan/recommendations: 1. Recommend offering COVID, zoster recombinant, and PCV20 vaccines at upcoming visits, though may want to space out administration of vaccines by a few weeks so does not experience extensive side effects (e.g., fatigue, MACIAS, soreness). medications for review: none Medications were reviewed by Pharm.D. for therapeutic indications as well as appropriate dosing for renal function when current labs available and not enrolled in hospice care. Continue to review quarterly. Time Spent Reviewing Chart: 20 min PBM PharmD Pharmacotherapy Rem V12: Medication monitoring or diagnostic evaluation (e.g., other labs, EKG) Medication reconciliation (changes to active VA and non-VA medication lists to reconcile differences) No changes to medication lists made (medication review completed, no discrepancies identified) Order, recommend, and/or administer immunization(s) /rosette/ EM JJ PHARMD PGY1 COMPUTER SYSTEMS CONSULTANT Signed: 05/18/2024 13:12 /rosette/ Janae Ceja Pharm.D., B.C.P.S Clinical Pharmacist - [facility] Cosigned: 05/19/2024 08:08 05/19/2024 ADDENDUM STATUS: COMPLETED Reviewed. Agree with above. /jeannette Ceja Pharm.D., B.C.P.S Clinical Pharmacist - [facility] Signed: 05/19/2024 08:09 EM [facility]
--- OUTSIDE RECORDS SUMMARY | 2024-05-25 04:43 | XMS_ITS | Encounter Summary ---
Author Name [facility] [place] Organization [facility] [place] Address [address] [place] [address] Care Team Providers Care Bat Lathe Operator Name Role Phone YULISSA HENDERSON Primary Care [...] PLAN F Mar 24, 2014 PLAN F [id number] LUIS MANUEL PERDOMO PATIENT [facility] [place] BLUECARD PREFERRED PROVIDER ORGANIZAT ION (PPO) [facility] Sep 21, 2012 [id number] LUIS MANUEL PERDOMO PATIENT [employer] ([id number]) PRESCRIPT ION WL3A Sep 21, 2012 [id number] LUIS MANUEL PERDOMO PATIENT MEDICARE (WNR) MEDICARE (M) PART B Sep 21, 2012 PART B [id number] NOEMI PERDOMO PATIENT MEDICARE (WNR) MEDICARE (M) PART A Jan 22, 2011 PART A [id number] NOEMI PERDOMO PATIENT MEDICARE PART D (WNR) MEDICARE (M) PART D Mar 24, 2014 PART D [id number] LUIS MANUEL PERDOMO PATIENT Selected Encounter This section includes the information on record at [place] for the Encounter. Date/Time Encounter Type Encounter Description Reason Provider Source May 25, 2024 08:43 AM Outpatient Encounter [facility] - PHYSICIAN ICD-10-CM K21.9 Gastro-esophageal reflux disease without esophagitis MOHAMUDQUEWESLY Stephen Encounter Template Text not used by [place] Assessments - Encounter Diagnoses This section includes the primary and secondary diagnoses documented for the Encounter. Date/Time Primary/Secondary Diagnosis Diagnosis Name Provider Source May 25, 2024 01:39 PM PRIMARY Gastro-esophageal reflux disease without esophagitis WESLY COYLE [facility] May 25, 2024 01:39 PM SECONDARY Essential (primary) hypertension WESLY COYLE [facility] May 25, 2024 01:39 PM SECONDARY Hyperlipidemia, unspecified COYLEWESLY [facility] May 25, 2024 01:39 PM SECONDARY Multiple sclerosis COYLE,WESLY [facility] May 25, 2024 01:39 PM SECONDARY Type 2 diabetes mellitus with unspecified complications COYLEWESLY [facility] Plan of Treatment: Future Appointments (+ 6 months) and Future Tests (+/- 45 days) The Plan of Treatment section includes future care activities for the patient from all [place] treatmentfacilities. This section includes future appointments and future orders which are active, pending or scheduled. Future Appointments This section includes appointments that were scheduled to occur 6 months from the date of the Encounter, up to a maximum of 20 appointments. The data comes from all [place] treatment facilities. Appointment Date/Time Appointment Type Appointme nt Facility Name Aug 29, 2024 07:38 PM AMBULATORY - MEDICINE [facility] Aug 29, 2024 09:00 PM AM[facility]ULATORY - NONE [place] [facility] Sep 13, 2024 08:00 AM AMBULATORY - NONE [place] [facility] Sep 30, 2024 01:30 PM AMBULATORY - SURGERY [place] [facility] [facility] Active, Pending, and Scheduled Orders This section includes a listing of several types of active, pending, and scheduled orders, including clinic medications orders, diagnostic test orders, procedure orders and consult orders; where the start date of the order is 45 days before the date of the Encounter or 45 days after the date of theEncounter. The data comes from all [place] treatment facilities. Test Date/Time Test Type Test Details Facility Name Jun 08, 2024 11:04 AM Consult Order ORTHO KNEE OUTPATIENT Cons Development Intern's Choice [facility] Lab Results: +/- 30 days of the encounter This section includes the Chemistry and Hematology Lab Results on record with [place] for the patient. Radiology Reports and Pathology Reports are provided separately, in subsequent sections. Lab Results This section contains the Chemistry/Hematology Results that were resulted 30 days before or 30 daysafter the date of the Encounter. Date/Time Source Result Type Result - Unit Interpretation Reference Range Specimen Type Comment May 25, 2024 11:30 AM [facility] N IRON/TIBC PLASMA Specimen Type: PLASMA No comment entered. Ordering Provider: YULISSA HENDERSON Report Released Date/Time: Apr 22, 2024 08:13 AM Reporting Lab: [address] [address] Performing Lab: [address] [address] IRON 53 ug/dL L 65-175 TIBC 233 mg/dL L 250-425 IRON SATURATION 23 20-50 May 25, 2024 11:30 AM [facility] FERRITIN PLASMA Specimen Type: PLASMA No comment entered. Ordering Provider: YULISSA HENDERSON Report Released Date/Time: Apr 22, 2024 08:13 AM Reporting Lab: [address] [address] Performing Lab: [address] [address] FERRITIN 141.1 ng/mL 21.8-274.7 May 25, 2024 11:30 AM [facility] CBC/PLT BLOOD Specimen Type: BLOOD No comment entered. Ordering Provider: YULISSA HENDERSON Report Released Date/Time: Apr 22, 2024 08:13 AM Reporting Lab: [address] [address] Performing Lab: [address] [address] WBC 9.6 10*3/uL 5.0-10.0 RBC 4.00 10*6/uL L 4.6-6.2 HGB 11.3 g/dL L 14.0-18.0 HCT 35.0 L 42.0-52.0 MCV 87.5 fL 80.0-94.0 MCH 28.3 pg 27.0-31.0 MCHC 32.3 g/dL 32.0-36.0 PLT 232 10*3/uL 150-450 MPV 11.0 fL 9.0-13.1 RDW 15.4 11.0-16.0 NRBC 0.0 0.0-0.0 Social History: Smoking Status (Most current) and Tobacco Use (All prior to encounter date) This section includes the most current, and the historical, smoking and tobacco- related health factors from the [place] facility where the Encounter took place. Current Smoking Status This section includes the most current smoking, or tobacco-related health factor, from the [place] facility where the Encounter took place. Date/Time Current Smoking Status Comment Facil ity Feb 06, 2024 10:00 AM VA-TOBACCO USER SOME DAYS [facility] Tobacco Use History This section includes a history of the smoking, or tobacco-related health factors, that were collected on or before the date of the Encounter. The data comes from the [place] facility where the Encounter took place. Date/Time Smoking Status/Tobacco Use Comment F acility Feb 06, 2024 10:00 AM VA-TOBACCO USE 30 YEARS OR MORE [facility] Feb 06, 2024 10:00 AM VA-TOBACCO USE ADVICE [facility] Feb 06, 2024 10:00 AM VA-TOBACCO USE CARBIDE TOOL DIE MAKER NO [facility] Feb 06, 2024 10:00 AM VA-TOBACCO USE MED NO [facility] Feb 06, 2024 10:00 AM VA-TOBACCO USER SOME DAYS [facility] Advance Directives: All historical and current Section Date Range: From patient's date of to the date document was created. This section includes ALL of a patient's completed or amended [place] Advance and Rescinded Directives. The entries below indicate that a directive exists for the patient, but an actual copy is not included with this document. The data comes from all [place] facilities. Date Advance Directives Provider Source Mar 08, 2024 ADVANCE DIRECTIVE DISCUSSION [facility] Radiology Reports: +/- 30 days of [...] the Encounter. The data comes from all [place] treatment facilities. 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 VST (Req'g Loc) Img Loc: [facility] RADIOLOGY [place]: [place] [address] (Case [id number] COMPLETE) ORTHO [id number]-HUE,SUN,TUNL,W/B (RAD Detailed) CPT:01346 Reason for Study: chronic pain right knee Clinical History: patient reports outside xrays show bone on bone Report Status: Verified Date Reported: JUN 01, 2024 Date Verified: JUN 01, 2024 Missile Mechanic E-Sig: Report: ORTHO [id number],SUN,TUNL,W/B OTH AP STANDING, 05/31/2024 11:07 AM EDT INDICATION: chronic pain right knee COMPARISON: None Impression: Right knee: No acute fracture or malalignment. Moderate tricompartmental degenerative change. Small inferior patellar pole enthesophyte. Vascular calcifications. 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 Primary Diagnostic Code: NO ALERT REQUIRED Primary Interpreting Staff: PINKY OBRIEN, Staff Physician Verified by probate judge for PINKY OBRIEN /PINKY SINGH [facility] Encounter Notes: All associated encounter notes This section contains the clinical notes associated to the Encounter. Date/Time Encounter Note(s) Provider Source May 25, 2024 08:43 AM [facility] ATTENDING NOT E: LOCAL TITLE: [facility] ATTENDING NOTE STANDARD TITLE: [facility] ATTENDING NOTE DATE OF NOTE: MAY 25, 2024@08:43 ENTRY DATE: MAY 25, 2024@08:43:49 AUTHOR: WESLY COYLEIGNER: URGENCY: STATUS: COMPLETED I have attended this quarterly Interdisciplinary Team Meeting, reviewed the chart including the medication list, and participated in the discussion and supervised the care planning of this patient. Medical surrogates:no AD; spouse NOK Living situation: at home with Diet recommendations: calorie controlled, NCS, MICHELLE Weight:unable to weigh reports weight gain Activity & functional level:increased use of upper extremities; needs assistance to stand and ambualtes with walker Needs assistance in: transfers, dressing, toileting, bathing Falls this quarter: none ED visits/Hospitalizations this quarter: none Memory & Mood status: stable ASSESSMENT & PLAN: Gastroesophageal reflux disease without esophagitis -symptoms stable Multiple sclerosis -stable and follows with outside neurology Type 2 diabetes mellitus -goal met Essential hypertension -blood pressure goal met Hyperlipidemia -lipid moment Code Status:FULL CODE Last LSTD Date:03/11/2024 Care Plan details are in the [facility] Interdisciplinary Plan of Care Note. Estimated time (minutes) spent in preparations, discussions and care plan review: / Wesly Coyle D.O. [facility] Attending Signed: 05/25/2024 13:39 WESLY COYLE [facility]
--- OUTSIDE RECORDS SUMMARY | 2024-08-06 06:37 | XMS_ITS ---
Author Name [facility] [place] [facility] [place] [facility] [facility] [place] Address [address] [place] [address] Care Team Providers Care Production Pattern Maker Name Role Phone YULISSA HENDERSON Primary Care [...] PLAN F Mar 24, 2014 PLAN F [id number] LUIS MANUEL PERDOMO PATIENT [facility] [place] [facility] PREFERRED PROVIDER ORGANIZAT ION (PPO) [facility] Sep 21, 2012 [id number] LUIS MANUEL PERDOMO PATIENT [employer] ([id number]) PRESCRIPT ION [id number] Sep 21, 2012 [id number] [phone] LUIS MANUEL PERDOMO PATIENT MEDICARE (WNR) MEDICARE (M) PART B Sep 21, 2012 PART B [id number] NOEMI PERDOMO PATIENT MEDICARE (WNR) MEDICARE (M) PART A Jan 22, 2011 PART A [id number] NOEMI PERDOMO PATIENT MEDICARE PART D (WNR) MEDICARE (M) PART D Mar 24, 2014 PART D [id number] LUIS MANUEL PERDOMO PATIENT Selected Encounter This section includes the information on record at [place] for the Encounter. Date/Time Encounter Type Encounter Description Reason Provider Source August 06, 2024 10:37 AM NQHP OL DIG ASSMT&MGMT 11-20 [facility] - CLINICAL PHARMACIST ICD-10-CM Z79.899 Other fdc (current) drug therapy JANAE SHOOK [facility] Encounter Template Text not used by [place] Assessments - Encounter Diagnoses This section includes the primary and secondary diagnoses documented for the Encounter. Date/Time Primary/Secondary Diagnosis Diagnosis Name Provider Source August 06, 2024 10:50 AM PRIMARY Other rn long term care (current) drug [facility] Plan of Treatment: Future Appointments (+ 6 months) and Future Tests (+/- 45 days) The Plan of Treatment section includes future care activities for the [facility] [place] [facility] This section includes future appointments and future orders which are active, pending or scheduled. Future Appointments This section includes appointments that were scheduled to occur 6 months from the date of the Encounter, up to a maximum of 20 appointments. The data comes from all [facility]. Appointment Date/Time Appointment Type Appointme nt Facility Name Aug 29, 2024 07:38 PM [facility]BULATORY - [facility]ICINE [place] [facility] Aug 29, 2024 09:00 PM [facility]ORY - NONE [place] [facility] Sep 13, 2024 08:00 AM [facility]ORY - NONE [place] [facility] Sep 30, 2024 01:30 PM AMBULATORY - SURGERY [place] [facility] Active, Pending, and Scheduled Orders This section includes a listing of several types of active, pending, and scheduled orders, including clinic medications orders, diagnostic test orders, procedure orders and consult orders; where the start date of the order is 45 days before the date of the Encounter or 45 days after the date of theEncounter. The data comes from all [facility]. Test Date/Time Test Type Test Details Facility Name Sep 13, 2024 01:33 PM Consult Order [facility] Cons Waste Cotton Cleaner's Choice [facility] Lab Results: +/- 30 days of the encounter This section includes the Chemistry and Hematology Lab Results on record with [facility] for the patient. Radiology Reports and Pathology Reports are provided separately, in subsequent sections. Lab Results This section contains the Chemistry/Hematology Results that were resulted 30 days before or 30 daysafter the date of the Encounter. Date/Time Source Result Type Result - Unit Interpretation Reference Range Specimen Type Comment Sep 05, 2024 08:47 PM [facility] GLUCOSE-HAND MONITOR CAPILLARY Specimen Type: CAPILLARY Comment: Test performed by: [id number] Meter #: [id number] Ordering Provider: FRANCK TURNER Report Released Date/Time: Sep 06, 2024 02:13 AM Reporting Lab: [address] [address] Performing Lab: [address] [address] GLUCOSE-HAND MONITOR 103 mg/dL H Sep 05, 2024 04:40 PM [facility] GLUCOSE-HAND MONITOR CAPILLARY Specime n Type: CAPILLARY Comment: AAMIR RN notified Test performed by: [id number] Meter #: [id number] Ordering Provider: FRANCK TURNER Report Released Date/Time: Sep 05, 2024 05:11 PM Reporting Lab: [address] [address] Performing Lab: [address] [address] GLUCOSE-HAND MONITOR 113 mg/dL H Sep 05, 2024 12:06 PM [facility] GLUCOSE-HAND MONITOR CAPILLARY Specime n Type: CAPILLARY Comment: Test performed by: [id number] Meter #: [id number] Ordering Provider: FRANCK TURNER Report Released Date/Time: Sep 05, 2024 12:23 PM Reporting Lab: [address] [address] Performing Lab: [address] [address] GLUCOSE-HAND MONITOR 115 mg/dL H -Sep 05, 2024 06:26 AM [facility] GLUCOSE-HAND MONITOR CAPILLARY Specime n Type: CAPILLARY Comment: AAMIR Correction Dose Test performed by: [id number] Meter #: [id number] Ordering Provider: FRANCK TURNER Report Released Date/Time: Sep 05, 2024 06:43 AM Reporting Lab: [place] [phone] Performing Lab: [address] [address] GLUCOSE-HAND MONITOR 111 mg/dL H Sep 04, 2024 08:59 PM [facility] GLUCOSE-HAND MONITOR CAPILLARY Specime n Type: CAPILLARY Comment: AAMIR RN notified Test performed by: [id number] Meter #: [id number] Ordering Provider: FRANCK TURNER Report Released Date/Time: Sep 04, 2024 09:36 PM Reporting Lab: [place] [phone] Performing Lab: [address] [address] GLUCOSE-HAND MONITOR 123 mg/dL H Sep 04, 2024 04:41 PM [facility] GLUCOSE-HAND MONITOR CAPILLARY Specime n Type: CAPILLARY Comment: AAMIR RN notified Test performed by: [id number] Meter #: [id number] Ordering Provider: FRANCK TURNER Report Released Date/Time: Sep 04, 2024 05:03 PM Reporting Lab: [address] [address] Performing Lab: [address] [address] GLUCOSE-HAND MONITOR 118 mg/dL H Sep 04, 2024 12:36 PM [facility] GLUCOSE-HAND MONITOR CAPILLARY Specime n Type: CAPILLARY Comment: AAMIR RN notified Test performed by: [id number] Meter #: [id number] Ordering Provider: FRANCK TURNER Report Released Date/Time: Sep 04, 2024 12:53 PM Reporting Lab: [address] [address] Performing Lab: [address] [address] GLUCOSE-HAND MONITOR 129 mg/dL H Sep 04, 2024 12:03 PM [facility] RESPIRATORY VIRUS PANEL (BIOFIRE) NASOPHARYN X Specimen Type: NASOPHARYNX Comment: ~For Test: RESPIRATORY VIRUS PANEL (BIOFIRE) ~ORDER READ BACK TO: FRANCK TURNER 09/04/24@11:30 Ordering Provider: FRANCK TURNER Report Released Date/Time: Sep 04, 2024 11:33 AM Reporting Lab: [address] [address] Performing Lab: [address] [address] ADENOVIRUS (BIOFIRE) Not Detected -Not D etected CORONAVIRUS 229E (BIOFIRE) Not Detected -Not Detected CORONAVIRUS HKU1 (BIOFIRE) Not Detected -Not Detected CORONAVIRUS NL63 (BIOFIRE) Not Detected -Not Detected CORONAVIRUS OC43 (BIOFIRE) Not Detected -Not Detected COVID-19 DIAGNOSITIC (BIOFIRE) Not Detected -Not Detected HUMAN METAPNEUMOVIRUS (BIOFIRE) Not Detected -Not Detected HUMAN RHINOVIRUS-ENTEROVIRUS (BIOFIRE) DETECTED -Not Detected INFLUENZA A (BIOFIRE) Not Detected -Not Detected INFLUENZA B (BIOFIRE) Not Detected -Not Detected PARAINFLUENZA 1 (BIOFIRE) Not Detected - Not Detected PARAINFLUENZA 2 (BIOFIRE) Not Detected - Not Detected PARAINFLUENZA 3 (BIOFIRE) Not Detected - Not Detected PARAINFLUENZA 4 (BIOFIRE) Not Detected - Not Detected RSV (BIOFIRE) Not Detected -Not Detected BORDETELLA PARAPERTUSSIS (BIOFIRE) Not Detected -Not detected BORDETELLA PERTUSSIS (BIOFIRE) Not Detected -Not Detected CHLAMYDIA PNEUMONIAE (BIOFIRE) Not Detected -Not Detected MYCOPLASMA PNEUMONIAE (BIOFIRE) Not Detected -Not Detected Sep 04, 2024 06:55 AM [facility] MAGNESIUM PLASMA Specimen Type: PLASM A Comment: Estimated [...] decrease <15 G5 Kidney failure Ordering Provider: FRANCK TURNER Report Released Date/Time: Sep 03, 2024 11:10 AM Reporting Lab: [address] [address] Performing Lab: [address] [address] MAGNESIUM 1.8 mg/dL 1.6-2.6 Sep 04, 2024 06:55 AM [facility] PANEL 1 PLASMA Specimen Type: PLASM A [...] decrease <15 G5 Kidney failure Ordering Provider: FRANCK TURNER Report Released Date/Time: Sep 03, 2024 11:10 AM Reporting Lab: [address] [address] Performing Lab: [address] [address] CREATININE 0.75 mg/dL 0.72-1.25 UREA NITROGEN 13 mg/dL 9-25 GLUCOSE 105 mg/dL H 74-100 SODIUM 128 mmol/L L 136-145 POTASSIUM 3.9 mmol/L 3.5-5.1 CHLORIDE 99 mmol/L 98-107 CO2 21 mmol/L L 22-29 CALCIUM 8.0 mg/dL L 8.4-10.2 ANION GAP 8 meq/L 3-19 eGFR (CKD-EPI) >90 Sep 04, 2024 06:02 AM [facility] GLUCOSE-HAND MONITOR CAPILLARY Specime n Type: CAPILLARY Comment: Test performed by: [id number] Meter #: [id number] Ordering Provider: FRANCK TURNER Report Released Date/Time: Sep 04, 2024 06:28 AM Reporting Lab: [address] [address] Performing Lab: [address] [address] GLUCOSE-HAND MONITOR 114 mg/dL H 71-99 Sep 03, 2024 05:19 PM [facility] GLUCOSE-HAND MONITOR CAPILLARY Specime n Type: CAPILLARY Comment: Test performed by: [id number] Meter #: [id number] Ordering Provider: FRANCK TURNER Report Released Date/Time: Sep 03, 2024 05:37 PM Reporting Lab: [address] [address] Performing Lab: [address] [address] GLUCOSE-HAND MONITOR 124 mg/dL H -99 Sep 03, 2024 04:41 PM [facility] GLUCOSE-HAND MONITOR CAPILLARY Specime n Type: CAPILLARY Comment: Test performed by: [id number] Meter #: [id number] Ordering Provider: FRANCK TURNER Report Released Date/Time: Sep 03, 2024 06:09 PM Reporting Lab: [address] [address] Performing Lab: [address] [address] GLUCOSE-HAND MONITOR 112 mg/dL H 71-99 Sep 03, 2024 01:35 PM [facility] CREATININE URINE Specimen Type: URINE Comment: ~Altered mental status with no identifiable cause Ordering Provider: FRANCK TURNER Report Released Date/Time: Sep 02, 2024 04:44 PM Reporting Lab: [address] [address] Performing Lab: [address] [address] CREATININE 150.9 mg/dL Sep 03, 2024 01:35 PM [facility] URINE LYTES URINE Specimen Type : URINE Comment: ~Altered mental status with no identifiable cause Ordering Provider: FRANCK TURNER Report Released Date/Time: Sep 02, 2024 04:44 PM Reporting Lab: [address] [address] Performing Lab: [address] [address] SODIUM 130 mmol/L POTASSIUM 47.6 mmol/L CHLORIDE 137 mmol/L Sep 03, 2024 01:35 PM [facility] UREA NITROGEN URINE Specimen Type : URINE Comment: ~Altered mental status with no identifiable cause Ordering Provider: FRANCK TURNER Report Released Date/Time: Sep 02, 2024 04:44 PM Reporting Lab: [address] [address] Performing Lab: [address] [address] UREA NITROGEN 320 mg/dL Sep 03, 2024 01:35 PM [facility] URINALYSIS WITH REFLEX TO CULTURE URINE Specimen Type: URINE Comment: ~Altered mental status with no identifiable cause Ordering Provider: FRANCK TURNER Report Released Date/Time: Sep 02, 2024 04:44 PM Reporting Lab: [address] [address] Performing Lab: [address] [address] URINE COLOR Yellow Colorless-Yellow APPEARANCE CLOUDY H Clear UROBILINOGEN Normal mg/dL Normal URINE BLOOD Negative Negative URINE BILIRUBIN Negative Negative URINE KETONES Negative mg/dL Negative URINE PROTEIN TRACE mg/dL Negative-Trace URINE PH 5.5 4.5-8.0 URINE NITRITE Negative Negative URINE LEUKOCYTE EST LARGE H Negative SPECIFIC GRAVITY 1.016 1.005-1.030 URINE GLUCOSE Negative mg/dL Negative URINE RBC (i) 26 /[HPF] H 0-3 URINE WBC (i) 169 /[HPF] H 0-3 URINE BACTERIA (i) TRACE /[HPF] H None URINE MUCOUS (i) 1+ /[LPF] H None BUDDING YEAST (i) 4+ /[HPF] H None SQUAMOUS EPITHELIAL (i) 90 /[LPF] H 0-28 Sep 03, 2024 01:35 PM [facility] OSMOLALITY URINE Specimen Type: URINE Comment: ~Altered mental status with no identifiable cause Ordering Provider: FRANCK TURNER Report Released Date/Time: Sep 02, 2024 04:44 PM Reporting Lab: [address] [address] Performing Lab: [address] [address] OSMOLALITY 522 mosm/kg 38-1400 Sep 03, 2024 11:58 AM [facility] GLUCOSE-HAND MONITOR CAPILLARY Specime n Type: CAPILLARY Comment: AAMIR RN notified Test performed by: [id number] Meter #: [id number] Ordering Provider: FRANCK TURNER Report Released Date/Time: Sep 03, 2024 12:15 PM Reporting Lab: [address] [address] Performing Lab: [address] [address] GLUCOSE-HAND MONITOR 135 mg/dL H 71-99 Sep 03, 2024 07:09 AM [facility] GLUCOSE-HAND MONITOR CAPILLARY Specime n Type: CAPILLARY Comment: Test performed by: [id number] Meter #: [id number] Ordering Provider: FRANCK TURNER Report Released Date/Time: Sep 03, 2024 07:26 AM Reporting Lab: [address] [address] Performing Lab: [address] [address] GLUCOSE-HAND MONITOR 120 mg/dL H 71-99 Sep 03, 2024 07:05 AM [facility] CBC/PLT BLOOD Specimen Type: BLOOD No comment entered. Ordering Provider: FRANCK TURNER Report Released Date/Time: Sep 02, 2024 04:29 PM Reporting Lab: [address] [address] Performing Lab: [address] [address] WBC 6.9 10*3/uL 5.0-10.0 RBC 3.48 10*6/uL L 4.6-6.2 HGB 9.5 g/dL L 14.0-18.0 HCT 29.1 L 42.0-52.0 MCV 83.6 fL 80.0-94.0 MCH 27.3 pg 27.0-31.0 MCHC 32.6 g/dL 32.0-36.0 PLT 258 10*3/uL 150-450 MPV 10.3 fL 9.0-13.1 RDW 14.8 11.0-16.0 NRBC 0.0 0.0-0.0 Sep 03, 2024 07:05 AM [facility] MAGNESIUM PLASMA Specimen Type: PLASM A Comment: Estimated [...] decrease <15 G5 Kidney failure Ordering Provider: FRANCK TURNER Report Released Date/Time: Sep 02, 2024 04:29 PM Reporting Lab: [facility] [address] [facility] [address] Performing Lab: [address] [address] MAGNESIUM 1.7 mg/dL 1.6-2.6 Sep 03, 2024 07:05 AM [facility] PANEL 1 PLASMA Specimen Type: PLASM A [...] decrease <15 G5 Kidney failure Ordering Provider: FRANCK TURNER Report Released Date/Time: Sep 02, 2024 04:29 PM Reporting Lab: [address] [address] Performing Lab: [address] [address] CREATININE 0.82 mg/dL 0.72-1.25 UREA NITROGEN 12 mg/dL 9-25 GLUCOSE 109 mg/dL H 74-100 SODIUM 129 mmol/L L 136-145 POTASSIUM 4.2 mmol/L 3.5-5.1 CHLORIDE 99 mmol/L 98-107 CO2 21 mmol/L L 22-29 CALCIUM 8.1 mg/dL L 8.4-10.2 ANION GAP 9 meq/L 3-19 eGFR (CKD-EPI) 90 Sep 03, 2024 07:05 AM [facility] GLYCOHEMOGLOBIN BLOOD Specimen Type: BLOOD Comment: Prediabetes: 5.7%-6.4% Diabetes: >= 6.5% [facility] guidelines for A1c interpretation: Glycemic control targets are based on Shared Decision Making between clinicians and patients. Criteria used to establish an A1c target recommendation can be found at https://www.[place].gov/qualityandpatientsafety/ and include the use of result accuracy [...] 8.73 and 9.27. Ref: https://ngsp.org/CAPdata.asp. The in-house [employer] D-100 analyzer has a historical CV <= 2%. Contact the laboratory for further performance characteristics of this assay. Ordering Provider: FRANCK TURNER Report Released Date/Time: Sep 02, 2024 04:29 PM Reporting Lab: [address] [address] Performing Lab: [address] [address] GLYCOHEMOGLOBIN 5.6 4.4-5.6 Sep 03, 2024 07:05 AM [facility] OSMOLALITY SERUM Specimen Type: SERUM No comment entered. Ordering Provider: FRANCK TURNER Report Released Date/Time: Sep 02, 2024 04:44 PM Reporting Lab: [address] [address] Performing Lab: [address] [address] OSMOLALITY 271 mosm/kg L 280-300 Sep 02, 2024 08:15 PM [facility] GLUCOSE-HAND MONITOR CAPILLARY Specime n Type: CAPILLARY Comment: AAMIR DEXTER notified Test performed by: [id number] Meter #: [id number] Ordering Provider: FRANCK TURNER Report Released Date/Time: Sep 02, 2024 08:57 PM Reporting Lab: [address] [address] Performing Lab: [address] [address] GLUCOSE-HAND MONITOR 126 mg/dL H 71-99 Sep 02, 2024 06:10 PM [facility] MRSA SURVL NARES DNA NARES Specime n Type: NARES Comment: ~For Test: MRSA SURVL NARES DNA ~policy Results from the Xpert MRSA NxG PCR test should be interpreted in conjunction with other laboratory and clinical data available to the clinician, and should be used as an adjunct to nosocomial infection control efforts to identify patients needing enhanced precautions. Results should not be used to guide or monitor treatment for MRSA infections. The Xpert MRSA NxG PCR test is not intended to diagnose, guide or monitor treatment for MRSA infections, or determine susceptibility to methicillin. An Xpert MRSA NxG PCR test positive result does not necessarily indicate intervention eradication failure since nonviable DNA may persist. A negative result following a previously positive test result may or may not indicate eradication success. Ordering Provider: FRANCK TURNER Report Released Date/Time: Sep 02, 2024 05:12 PM Reporting Lab: [address] [address] Performing Lab: [address] [address] MRSA SURVL NARES DNA Negative Negative Sep 02, 2024 05:36 PM [facility] GLUCOSE-HAND MONITOR CAPILLARY Specime n Type: CAPILLARY Comment: Test performed by: [id number] Meter #: [id number] Ordering Provider: FRANCK TURNER Report Released Date/Time: Sep 02, 2024 05:53 PM Reporting Lab: [address] [address] Performing Lab: [address] [address] GLUCOSE-HAND MONITOR 127 mg/dL H 71-99 Aug 29, 2024 10:04 PM [facility] URINALYSIS WITH REFLEX TO CULTURE URINE Specimen Type: URINE Comment: ~For Test: URINALYSIS WITH REFLEX TO CULTURE ~REORDER Ordering Provider: FELISA COLE Report Released Date/Time: Aug 29, 2024 09:36 PM Reporting Lab: [address] [address] Performing Lab: [address] [address] URINE COLOR Yellow Colorless-Yellow APPEARANCE Clear Clear UROBILINOGEN 4.0 mg/dL H Normal URINE BLOOD Negative Negative URINE BILIRUBIN Negative Negative URINE KETONES Negative mg/dL Negative URINE PROTEIN TRACE mg/dL Negative-Trace URINE PH 8.0 4.5-8.0 URINE NITRITE Negative Negative URINE LEUKOCYTE EST MODERATE H Negative SPECIFIC GRAVITY 1.018 1.005-1.030 URINE GLUCOSE Negative mg/dL Negative URINE RBC (i) 10 /[HPF] H 0-3 URINE WBC (i) 36 /[HPF] H 0-3 URINE MUCOUS (i) TRACE /[LPF] H None BUDDING YEAST (i) 2+ /[HPF] H None SQUAMOUS EPITHELIAL (i) 16 /[LPF] 0-28 Aug 29, 2024 08:32 PM [facility] HIGH SENSITIVITY TROPONIN I PLASMA Specimen Ty pe: PLASMA Comment: Reference Ranges Females: 4 - 14 ng/L Males: 4 - 35 ng/L Limit of Quantitation: 4 ng/L Significant High-Sensitivity Troponin I Delta at 2 hours, either rising or falling: >10 ng/L. Once baseline and 2-hour High-Sensitivity Troponin I results are available, the Provider ordering the tests will calculate the HS-Troponin I Delta, the difference between the two values. High-Troponin I values greater than the 99th percentile with a rising or falling pattern (a change of >10 ng/L between the baseline and 2-hour samples) highly suggest acute cardiac injury, whereas values for females 4-14 ng/L and males 4-35 ng/L require further clinician assessment. Acute cardiac injury does not necessarily equate to acute myocardial infarction. Additional clinical criteria are necessary for the diagnosis of Specimens from individuals with elevated levels of fibrinogen may demonstrate falsely elevated values. This assay is susceptible to interference from total protein >8.8 g/dL. Total protein values from 9.0 to 12.0 g/dL decrease Troponin values at 500 ng/L by up to -16.3%. Although designed to minimize the effects of HAMA, heterophilic antibodies, and RF, the assay results may be impacted in a falsely negative way by these proteins. A High-Sensitivity Troponin I information resource can be reached in [facility] in the Tools menu, under the Education tab. Estimated Glomerular Filtration Rate (eGFR) calculated using [...] decrease <15 G5 Kidney failure Ordering Provider: FELISA COLE Report Released Date/Time: Aug 29, 2024 07:55 PM Reporting Lab: [address] [address] Performing Lab: [address] [address] HIGH SENSITIVITY TROPONIN I 7 4-35 Aug 29, 2024 08:32 PM [facility] CBC/PLT BLOOD Specimen Type: BLOOD No comment entered. Ordering Provider: FELISA COLE Report Released Date/Time: Aug 29, 2024 07:55 PM Reporting Lab: [address] [address] Performing Lab: [address] [address] WBC 11.2 10*3/uL H 5.0-10.0 RBC 3.97 10*6/uL L 4.6-6.2 HGB 10.9 g/dL L 14.0-18.0 HCT 33.5 L 42.0-52.0 MCV 84.4 fL 80.0-94.0 MCH 27.5 pg 27.0-31.0 MCHC 32.5 g/dL 32.0-36.0 PLT 230 10*3/uL 150-450 MPV 10.2 fL 9.0-13.1 RDW 14.6 11.0-16.0 NRBC 0.0 0.0-0.0 Aug 29, 2024 08:32 PM [facility] PANEL 5 PLASMA Specimen Type: PLASM A Comment: Reference Ranges Females: 4 - 14 ng/L Males: 4 - 35 ng/L Limit of Quantitation: 4 ng/L Significant High-Sensitivity Troponin I Delta at 2 hours, either rising or falling: >10 ng/L. Once baseline and 2-hour High-Sensitivity Troponin I results are available, the Provider ordering the tests will calculate the HS-Troponin I Delta, the difference between the two values. High-Troponin I values greater than the 99th percentile with a rising or falling pattern (a change of >10 ng/L between the baseline and 2-hour samples) highly suggest acute cardiac injury, whereas values for females 4-14 ng/L and males 4-35 ng/L require further clinician assessment. Acute cardiac injury does not necessarily equate to acute myocardial infarction. Additional clinical criteria are necessary for the diagnosis of Specimens from individuals with elevated levels of fibrinogen may demonstrate falsely elevated values. This assay is susceptible to interference from total protein >8.8 g/dL. Total protein values from 9.0 to 12.0 g/dL decrease Troponin values at 500 ng/L by up to -16.3%. Although designed to minimize the effects of HAMA, heterophilic antibodies, and RF, the assay results may be impacted in a falsely negative way by these proteins. A High-Sensitivity Troponin I information resource can be reached in [facility] in the Tools menu, under the Education tab. Estimated Glomerular Filtration Rate (eGFR) calculated using [...] decrease <15 G5 Kidney failure Ordering Provider: FELISA COLE Report Released Date/Time: Aug 29, 2024 07:55 PM Reporting Lab: [address] [address] Performing Lab: [address] [address] CREATININE 0.85 mg/dL 0.72-1.25 UREA NITROGEN 15 mg/dL 9-25 GLUCOSE 111 mg/dL H 74-100 SODIUM 129 mmol/L L 136-145 POTASSIUM 4.5 mmol/L 3.5-5.1 CHLORIDE 99 mmol/L 98-107 CO2 23 mmol/L 22-29 CALCIUM 8.6 mg/dL 8.4-10.2 TOTAL PROTEIN 5.9 g/dL L 6.4-8.3 ALBUMIN 2.9 g/dL L 3.5-5.2 TOTAL BILIRUBIN 1.4 mg/dL H 0.2-1.2 AST 11 U/L 5-34 ALT 15 U/L 0-55 ANION GAP 7 meq/L 3-19 ALK PHOS 97 U/L 40-150 eGFR (CKD-EPI) 89 Advance Directives: All historical and current Section Date Range: From patient's date of to the date document was created. This section includes ALL of a patient's completed or amended [place] Advance and Rescinded Directives. The entries below indicate that a directive exists for the patient, but an actual copy is not included with this document. The data comes from all [place] facilities. Date Advance Directives Provider Source Mar 08, 2024 ADVANCE DIRECTIVE DISCUSSION SERGIO,RUBIN Ang [facility] Radiology Reports: +/- 30 days of the [...] the Encounter. The data comes from all [place] treatment facilities. Date/Time Radiology Report Provider Source Sep 03, 2024 10:45 AM CHEST SINGLE(1) EW: LUIS MANUEL PERDOMO FABIAN [id number] [phone] M Exm Date: SEP 03, 2024@10:45 Req Phys: FRANCK TURNER Pat Loc: 5-MED/TEL/09-03-2024@10:56 Img Loc: [facility] RADIOLOGY Service: [place] [address] (Case [id number] COMPLETE)CHEST SINGLE(1) VIEW (RAD Detailed) CPT:78038 Proc Modifiers : PORTABLE EXAM Reason for Study: Eval volume status Clinical History: Report Status: Verified Date Reported: SEP 03, 2024 Date Verified: SEP 03, 2024 Purchasing Specialist E-Sig: Report: EXAMINATION: SINGLE VIEW CHEST CLINICAL INDICATIONS: Evaluate volume status COMPARISON: None FINDINGS: The heart is not enlarged. The pulmonary vascularity is difficult to assess. There is no definite vascular congestion. There are interstitial densities seen diffusely throughout both lung yañez and there are confluence airspace opacities in both lung bases. Bibasilar pneumonia possibly from aspiration would have to be considered. Impression: No significant volume overload. Parenchymal densities focally greatest is airspace disease in the lung bases. Follow-up is recommended in attempt to confirm clearing to ensure benign etiology. Primary Diagnostic Code: NO ALERT REQUIRED Primary Interpreting Staff: HUANG TAI, Radiologist Verified by dozer operator for HUANG TAI /HUANG [facility] Aug 29, 2024 08:[address] HEAD W/O CONT: LEANNE,LUIS MANUEL PERALTA [id number] -[id number] M Exm Date: AUG 29, 2024@20:28 Req Phys: FELISA COLE Loc: ED/4P-12A (Req'g Loc) Img Loc: CT SCAN Service: [place] [address] (Case [id number] COMPLETE) CT HEAD W/O CONT (CT Detailed) CPT:22198 Reason for Study: SEE CLINICAL HISTORY Clinical History: REASON FOR SEND OUT: ATTENDING PHYSICIAN NAME: New transient neurological s/s - suspected TIA HISTORY/REASON FOR EXAM: confusion Report Status: Verified Date Reported: AUG 29, 2024 Date Verified: AUG 29, 2024 Purchasing Specialist E-Sig: Report: HISTORY confusion COMPARISON No prior studies available. TECHNIQUE CT HEAD W/O CONT CT dose: CTDI vol: 32.83 mGy; DLP: 759.33 mGy*cm FINDINGS There is no hemorrhage.No hydrocephalus.No midline shift. No regions of acute infarct. No space-occupying mass. Periventricular decreased attenuation likely sequelae of remote ischemic small-vessel disease. Bilateral cataract surgery. Right maxillary sinus mucous retention cysts Pneumatized mastoid air cells. The posterior nasopharynx is normal in appearance. Calvarium is intact Electronically signed by: Abdirahman Crow MD (August 29 2024 09:36 PM EST) Impression: No acute intracranial pathology. Primary Diagnostic Code: NO ALERT REQUIRED Primary Interpreting Staff: ABDIRAHMAN CROW, Staff Physician Verified by dozer operator for ABDIRAHMAN CROW /ABDIRAHMAN [facility] Pathology Reports: +/- 30 days of the encounter Pathology Reports For cases when an order for pathology services may have been completed prior to the date of the Encounter, the report list includes the Pathology Reports that were completed up to 30 days before dateof the Encounter. For cases when an order for pathology services may have been completed after the date of the Encounter, the report list also includes the Pathology Reports that were completed up to30 days after date of the Encounter. The data comes from all [place] treatment facilities. Date/Time Pathology Report Provider Source Sep 03, 2024 01:35 PM LR MICROBIOLOGY RE PORT: Reporting Lab: [facility] [CLIA# [id number]] [address] [place] [address] Accession [UID]: [id number] [[id number]] Received: Sep 03, 2024@14:02 Collection sample: URINE, CLEAN CATCH Collection date: Sep 03, 2024 13:35 Site/Specimen: URINE Provider: FRANCK TURNER Test(s) ordered: CULTURE, URINE................ completed: Sep 06, 2024 * BACTERIOLOGY FINAL REPORT => Sep 06, 2024 11:59 TECH CODE: [id number] CULTURE RESULTS: DUANE GLABRATA - Quantity: >100,000 CFU/ML Bacteriology Remark(s): <10,000 CFU/ML. 09/04/2024 >100,000 CFU/ML YEAST. 09/05/2024 =--=--=--=--=--=--=--=--=--=-- =--=--=--=--=--=--=--=--=--=-- =--=--=--=--=--=-- Performing Laboratory: Bacteriology Report Performed By: [facility] [CLIA# [id number]] [address] [place] [phone] [facility] Sep 02, 2024 06:00 PM LR MICROBIOLOGY RE PORT: Reporting Lab: [facility] [CLIA# [id number]] [address] [place] [id number] Accession [UID]: [id number] [[id number]] Received: Sep 02, 2024@18:07 Collection sample: BLD CULTURE BOTTLES Collection date: Sep 02, 2024 18:00 Site/Specimen: BLOOD Provider: FRANCK TURNER Comment on specimen: L HAND Test(s) ordered: CULTURE, BLOOD................ completed: Sep 08, 2024 * BACTERIOLOGY FINAL REPORT => Sep 08, 2024 08:25 TECH CODE: [id number] Bacteriology Remark(s): Blood culture status=NO GROWTH (unless notified otherwise) 09/03/2024 AEROBIC: NO GROWTH ANAEROBIC: NO GROWTH =--=--=--=--=--=--=--=--=--=-- =--=--=--=--=--=--=--=--=--=-- =--=--=--=--=--=-- Performing Laboratory: Bacteriology Report Performed By: [facility] [CLIA# [id number]] [address] [place] [phone] [facility] Aug 29, 2024 10:18 PM LR MICROBIOLOGY RE PORT: Reporting Lab: [facility] [CLIA# [id number]] [address] [place] [id number] Accession [UID]: [id number] [[id number]] Received: Aug 29, 2024@22:18 Collection sample: URINE, CLEAN CATCH Collection date: Aug 29, 2024 22:18 Site/Specimen: URINE Provider: FELISA COLE Test(s) ordered: CULTURE, URINE................ completed: Aug 31, 2024 09:51 * BACTERIOLOGY FINAL REPORT => Aug 31, 2024 09:51 TECH CODE: [id number] Bacteriology Remark(s): NO GROWTH 08/30/2024 <10,000 CFU/ML. 08/31/2024 =--=--=--=--=--=--=--=--=--=-- =--=--=--=--=--=--=--=--=--=-- =--=--=--=--=--=-- Performing Laboratory: Bacteriology Report Performed By: [facility] [CLIA# [id number]] [address] [place] [phone] [facility] Encounter Notes: All associated encounter notes This section contains the clinical notes associated to the Encounter. Date/Time Encounter Note(s) Provider Source Sep 03, 2024 02:08 PM ADDENDUM: LOCAL TITLE: Addendum STANDARD TITLE: ADDENDUM DATE OF NOTE: SEP 03, 2024@14:08:26 ENTRY DATE: SEP 03, 2024@14:08:27 AUTHOR: RIAN YI EXP COSIGNER: URGENCY: STATUS: COMPLETED Pt has been discharged from [facility]. 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 /rosette/ RIAN YI PHARMD, BCACP PHARMACIST Signed: 09/03/2024 14:08 Receipt Acknowledged By: 09/03/2024 14:35 /rosette/ GENIA SUÁREZBY CLINICAL MED REC PHARMACIST --- Original Document --- 08/06/24 [facility] PHARMACY NOTE: PMH: 1. Gastroesophageal reflux disease without esophagitis 2. Constipation 3. Multiple sclerosis 4. Age related macular degeneration 5. Closed fracture of shaft of right fibula 6. Incontinence 7. Type 2 diabetes mellitus 8. Essential hypertension 9. Hyperlipidemia 10. Carcinoma of prostate 11. Pain of right knee joint Allergies: Patient has answered NKA VS: 07/09/24 Temperature: 97.2 F (36.2 C) Pulse: Pulse: 67 Pulse Oximetry: 95 Respirations: Respirations: 16 Blood Pressure: Blood Pressure: 112/64 Immunizations: IM - Immunizations ADMINISTERED Immunization Series Date Facility Reaction Info HEP A, ADULT 2 09/01/2018 [facility] HEP A, ADULT 1 12/29/2017 [facility] HEPB-CPG 2 11/26/2018 [facility] HEPB-[facility] 1 10/29/2018 [facility] INFLUENZA, UNSPECIFIED FORMULATI* 01/05/2024 Home [facility] 1 01/04/2019 [facility] CONTRAINDICATED No data available REFUSED ======= No data available Medications: Active and Recently Outpatient Medications (including Supplies): Active Outpatient Medications Status 1) BRIEF,TRANQ ALEX OVERNITE XL#2117 PULLUP USE 1 BRIEF ACTIVE DIRECTED THREE TIMES A DAY Indication: FOR INCONTINENCE 2) CLOTRIMAZOLE 1% TOP CREAM APPLY SMALL AMOUNT TO AFFECTED ACTIVE AREA THREE TIMES A DAY NEEDED APPLY TO GROIN RASH Indication: FOR FUNGAL INFECTION 3) DICLOFENAC NA 1% TOP GEL APPLY 2 GRAM STRIP TO AFFECTED AREA ACTIVE EVERY 6 HOURS NEEDED APPLY TO RIGHT KNEE Indication: FOR PAIN 4) GLOVE VINYL MEDIUM PWDR-FREE NONSTERILE USE GLOVE ACTIVE DIRECTED FOUR TIMES A DAY Indication: CLEANING 5) HYDROPHILIC (EQV EUCERIN) TOP CREAM APPLY SMALL AMOUNT TO ACTIVE AFFECTED AREA NEEDED Indication: FOR DRY SKIN 6) IPRATROPIUM BR 0.03% NASAL SPRAY SPRAY 1 SPRAY IN NOSE WITH ACTIVE MEALS Indication: FOR NASAL ALLERGIES 7) UNDERPAD,BED [id number] TRANQUILITY-2710 USE UNDERPAD ACTIVE DIRECTED THREE TIMES A DAY NEEDED Inactive Outpatient Medications Status 1) MEDICATION DISPOSAL PATIENT PKT USE 1 PACKET DIRECTED Indication: FOR RETURNING MEDICATIONS Active Non-VA Medications Status 1) Non-VA ASPIRIN [...] DAY ACTIVE Indication: FOR INFECTION 11) Non-VA POLYETHYLENE GLYCOL 3350 ORAL PWDR 17 GRAMS (ONE ACTIVE CAPFUL FILLED TO LINE) IN LIQUID MOUTH DAILY Indication: FOR CONSTIPATION 12) Non-VA PRESERVISION AREDS VITAMIN 2 CAPSULES MOUTH DAILY ACTIVE Indication: UNKNOWN 13) Non-VA PSYLLIUM 520MG CAP 1 CAPSULE MOUTH DAILY ACTIVE Indication: UNKNOWN 14) Non-VA SILODOSIN 8MG ORAL CAP 8MG MOUTH [...] - Partial Panel found WBC , BLOOD, 05/25/24@1130 9.6 K/cmm (5.0 - 10.0) RBC, BLOOD, 05/25/24@1130 4.00 LM/cmm (4.6 - 6.2) HGB, BLOOD, 05/25/24@1130 11.3 Lg/dL (14.0 - 18.0) HCT, BLOOD, 05/25/24@1130 35.0 L% (42.0 - 52.0) MCV, BLOOD, 05/25/24@1130 87.5 fL (80.0 - 94.0) MCH, BLOOD, 05/25/24@1130 28.3 pg (27.0 - 31.0) MCHC, BLOOD, 05/25/24@1130 32.3 g/dL (32.0 - 36.0) RDW, BLOOD, 05/25/24@1130 15.4 % (11.0 - 16.0) PLT, BLOOD, 05/25/241130 232 K/cmm (150 - 450) MPV, BLOOD, 05/25/24@1130 11.0 fL (9.0 - 13.1) NRBC, BLOOD, 05/25/24@1130 0.0 % (0.0 - 0.0) Lipid Prof Nanci. date CHOL TRIG HDL LIPID PHLDL CHOLSERUM AP 02/06/24 12:24 136 154 H 37 L BLOOD Nov 2023 12:24 Units Ranges GLYCO-H 6.4 % 4.4 - 6.4 TSH: 0.6365 mIU/mL (02/06/2024 12:24) B-12/FOLATE: Collection DT Specimen Test Name Result Units Ref Range 02/06/2024 12:24 PLASMA!! B12 VITAMIN >2000 H pg/mL 213 - 816 IRON: 53 ug/dL L (05/25/2024 11:30) IRON SATURATION: 23 % (05/25/2024 11:30) TIBC: 233 mg/dL L (05/25/2024 11:30) FERRITIN: 141.1 ng/mL (05/25/2024 11:30) Vitamin D: Collection DT Specimen Test Name Result Units Ref Range 02/06/2024 12:24 SERUM !! 25-OH VITAMIN D 50.7 H ng/mL 20.0 - 50.0 Estimated CrCl: >100 ml/min (ABW and Scr); 77 ml/min (Scr=1, eGFR adj for BW) Lipid Goal: moderate-dose statin (DM+HTN) - met (atorva) BP Goal: <140/90 (DM) - met A1c Goal: <8% (age/comorbidities) - met Medication Outcomes [facility] meds: clotrimazole 1% cream apply small amt to AA TID PRN: fungal infxn diclofenac 1% gel apply 2 gm to AA Q6H PRN: pain hydrophilic cream apply small amt to AA PRN: dry skin ipratropium br 0.03% nasal spray 1 spray in nose with meals: allergies NonVA meds: ASPIRIN 81MG CHEW TAB DAILY: cardioprotection in DM ATORVASTATIN CALCIUM TAB 20MG AT [...] Dave Diamond *NonVA PCP Bertha Allen in [place] New therapies/medication changes since last Pharmacy review: - no changes - immunizations recommended 05/18/24 Plan/recommendations: 1. Vitamin D: Recommend d/c of nonVA cholecalciferol supplementation. 25OHD elevated. 2. Hyponatremia: Na low last check. Likely not med related. Continue to monitor. medications for review: none Medications were reviewed [...] medication lists made Discontinue or remove medication /es/ Janae Shook PharmVivianeD. Clinical Pharmacist - [facility] Signed: 08/06/2024 10:50 Receipt Acknowledged By: 08/06/2024 11:03 /es/ LYNN ALCOCER RN 08/06/2024 10:57 /es/ YULISSA HENDERSON APRN ADVANCED PRACTICE REGISTERED NURSE, [place] 09/03/2024 ADDENDUM STATUS: COMPLETED Mr. Leanne Conteh was admitted to the hospital and [phone] Called facility and obtained the following verbal med list from the nurse: -Famotidine 20mg tab po bid -Bisoprolol fumarate 5mg tab po once daily -Vitamin E 400 unit tab po once daily -Acetaminphen 325mg tab: 2 tabs po q4h prn -Gabapentin 100mg cap: 2 caps po tid -Atorvastatin 20mg tab po once qhs -Methenamine hipurate 1gm tab po bid -Aspirin 81mg EC tab po once daily -Lisinopril 5mg tab po once daily -Polyethylene glycol 3350 oral powder: 17gm po once daily -Metformin 500mg ER tab po once daily -Cholecalciferol 50mcg cap po once daily -PreserVision AREDS2 1 tab po bid -Sodium Chloride 1000mg tab po once daily -Tamsulosin 0.4mg cap po QPM -Nystatin topical powder to christiano-area PRN -Levofloxacin 750mg tab po once daily through 09/02/24 -Duonebs 3ml via nebulizer q6h through 09/08/24 -Florastor 2 tab/cap po bid through 09/16/24 /rosette/ GENIA MARIN CLINICAL MED REC PHARMACIST Signed: 09/03/2024 14:04 Receipt Acknowledged By: 09/03/2024 14:08 /es/ RIAN YI PHARMD, BCACP PHARMACIST for RIAN [facility] Sep 03, 2024 02:02 PM ADDENDUM: LOCAL TITLE: Addendum STANDARD TITLE: ADDENDUM DATE OF NOTE: SEP 03, 2024@14:02:40 ENTRY DATE: SEP 03, 2024@14:02:41 AUTHOR: GENIA MARIN EXP COSIGNER: URGENCY: STATUS: COMPLETED Mr. Leanne Conteh was admitted to the hospital and found to be at [facility] [phone]. Called facility and obtained the following verbal med list from the nurse: -Famotidine 20mg tab po bid -Bisoprolol fumarate 5mg tab po once daily -Vitamin E 400 unit tab po once daily -Acetaminphen 325mg tab: 2 tabs po q4h prn -Gabapentin 100mg cap: 2 caps po tid -Atorvastatin 20mg tab po once qhs -Methenamine hipurate 1gm tab po bid -Aspirin 81mg EC tab po once daily -Lisinopril 5mg tab po once daily -Polyethylene glycol 3350 oral powder: 17gm po once daily -Metformin 500mg ER tab po once daily -Cholecalciferol 50mcg cap po once daily -PreserVision AREDS2 1 tab po bid -Sodium Chloride 1000mg tab po once daily -Tamsulosin 0.4mg cap po QPM -Nystatin topical powder to christiano-area PRN -Levofloxacin 750mg tab po once daily through 09/02/24 -Duonebs 3ml via nebulizer q6h through 09/08/24 -Florastor 2 tab/cap po bid through 09/16/24 /rosette/ GENIA MARIN CLINICAL MED REC PHARMACIST Signed: 09/03/2024 14:04 Receipt Acknowledged By: 09/03/2024 14:08 /es/ RIAN YI, PHARMD, BCACP PHARMACIST for JANAE SHOOK --- Original Document --- 08/06/24 [facility] PHARMACY NOTE: PMH: 1. Gastroesophageal reflux disease without esophagitis 2. Constipation 3. Multiple sclerosis 4. Age related macular degeneration 5. Closed fracture of shaft of right fibula 6. Incontinence 7. Type 2 diabetes mellitus 8. Essential hypertension 9. Hyperlipidemia 10. Carcinoma of prostate 11. Pain of right knee joint Allergies: Patient has answered NKA VS: 07/09/24 Temperature: 97.2 F (36.2 C) Pulse: Pulse: 67 Pulse Oximetry: 95 Respirations: Respirations: 16 Blood Pressure: Blood Pressure: 112/64 Immunizations: IM - Immunizations ADMINISTERED Immunization Series Date Facility Reaction Info HEP A, ADULT 2 09/01/2018 [facility] HEP A, ADULT 1 12/29/2017 [facility] HEPB-[facility] 2 11/26/2018 [facility]PB-[facility] 1 10/29/2018 [facility] INFLUENZA, UNSPECIFIED FORMULATI* 01/05/2024 Home [facility] REC[facility] 1 01/04/2019 [facility] CONTRAINDICATED No data available REFUSED ======= No data available Medications: Active and Recently Outpatient Medications (including Supplies): Active Outpatient Medications Status 1) BRIEF,TRANQ ALEX OVERNITE XL#2117 PULLUP USE 1 BRIEF ACTIVE DIRECTED THREE TIMES A DAY Indication: FOR INCONTINENCE 2) CLOTRIMAZOLE 1% TOP CREAM APPLY SMALL AMOUNT TO AFFECTED ACTIVE AREA THREE TIMES A DAY NEEDED APPLY TO GROIN RASH Indication: FOR FUNGAL INFECTION 3) DICLOFENAC NA 1% TOP GEL APPLY 2 GRAM STRIP TO AFFECTED AREA ACTIVE EVERY 6 HOURS NEEDED APPLY TO RIGHT KNEE Indication: FOR PAIN 4) GLOVE VINYL MEDIUM PWDR-FREE NONSTERILE USE GLOVE ACTIVE DIRECTED FOUR TIMES A DAY Indication: CLEANING 5) HYDROPHILIC (EQV EUCERIN) TOP CREAM APPLY SMALL AMOUNT TO ACTIVE AFFECTED AREA NEEDED Indication: FOR DRY SKIN 6) IPRATROPIUM BR 0.03% NASAL SPRAY SPRAY 1 SPRAY IN NOSE WITH ACTIVE MEALS Indication: FOR NASAL ALLERGIES 7) UNDERPAD,BED [id number] TRANQUILITY-2710 USE UNDERPAD ACTIVE DIRECTED THREE TIMES A DAY NEEDED Inactive Outpatient Medications Status 1) MEDICATION DISPOSAL PATIENT PKT USE 1 PACKET DIRECTED Indication: FOR RETURNING MEDICATIONS Active Non-VA Medications Status 1) Non-VA ASPIRIN [...] DAY ACTIVE Indication: FOR INFECTION 11) Non-VA POLYETHYLENE GLYCOL 3350 ORAL PWDR 17 GRAMS (ONE ACTIVE CAPFUL FILLED TO LINE) IN LIQUID MOUTH DAILY Indication: FOR CONSTIPATION 12) Non-VA PRESERVISION AREDS VITAMIN 2 CAPSULES MOUTH DAILY ACTIVE Indication: UNKNOWN 13) Non-VA PSYLLIUM 520MG CAP 1 CAPSULE MOUTH DAILY ACTIVE Indication: UNKNOWN 14) Non-VA SILODOSIN 8MG ORAL CAP 8MG MOUTH [...] - Partial Panel found WBC , BLOOD, 05/25/24@1130 9.6 K/cmm (5.0 - 10.0) RBC, BLOOD, 05/25/24@1130 4.00 LM/cmm (4.6 - 6.2) HGB, BLOOD, 05/25/24@1130 11.3 Lg/dL (14.0 - 18.0) HCT, BLOOD, 05/25/24@1130 35.0 L% (42.0 - 52.0) MCV, BLOOD, 05/25/24@1130 87.5 fL (80.0 - 94.0) MCH, BLOOD, 05/25/24@1130 28.3 pg (27.0 - 31.0) MCHC, BLOOD, 05/25/24@1130 32.3 g/dL (32.0 - 36.0) RDW, BLOOD, 05/25/24@1130 15.4 % (11.0 - 16.0) PLT, BLOOD, 05/25/24@1130 232 K/cmm (150 - 450) MPV, BLOOD, 05/25/24@1130 11.0 fL (9.0 - 13.1) NRBC, BLOOD, 05/25/24@1130 0.0 % (0.0 - 0.0) Lipid Prof Nanci. date CHOL TRIG HDL LIPID PHLDL CHOLSERUM AP 02/06/24 12:24 136 154 H 37 L BLOOD Nov 15 Reference 2023 12:24 Units Ranges GLYCO-H 6.4 % 4.4 - 6.4 TSH: 0.6365 mIU/mL (02/06/2024 12:24) B-12/FOLATE: Collection DT Specimen Test Name Result Units Ref Range 02/06/2024 12:24 PLASMA!! B12 VITAMIN >2000 H pg/mL 213 - 816 IRON: 53 ug/dL L (05/25/2024 11:30) IRON SATURATION: 23 % (05/25/2024 11:30) TIBC: 233 mg/dL L (05/25/2024 11:30) FERRITIN: 141.1 ng/mL (05/25/2024 11:30) Vitamin D: Collection DT Specimen Test Name Result Units Ref Range 02/06/2024 12:24 SERUM !! 25-OH VITAMIN D 50.7 H ng/mL 20.0 - 50.0 Estimated CrCl: >100 ml/min (ABW and Scr); 77 ml/min (Scr=1, eGFR adj for BW) Lipid Goal: moderate-dose statin (DM+HTN) - met (atorva) BP Goal: <140/90 (DM) - met A1c Goal: <8% (age/comorbidities) - met Medication Outcomes VA meds: clotrimazole 1% cream apply small amt to AA TID PRN: fungal infxn diclofenac 1% gel apply 2 gm to AA Q6H PRN: pain hydrophilic cream apply small amt to AA PRN: dry skin ipratropium br 0.03% nasal spray 1 spray in nose with meals: allergies NonVA meds: ASPIRIN 81MG CHEW TAB DAILY: cardioprotection in DM ATORVASTATIN CALCIUM TAB 20MG AT [...] Dave Diamond *NonVA PCP Bertha Allen in [place] New therapies/medication changes since last Pharmacy review: - no changes - immunizations recommended 05/18/24 Plan/recommendations: 1. Vitamin D: Recommend d/c of nonVA cholecalciferol supplementation. 25OHD elevated. 2. Hyponatremia: Na low last check. Likely not med related. Continue to monitor. medications for review: none Medications were reviewed [...] medication lists made Discontinue or remove medication /es/ Janae Shook, Pharm.D. Clinical Pharmacist - [facility] Signed: 08/06/2024 10:50 Receipt Acknowledged By: 08/06/2024 11:03 /es/ LYNN ALCOCER RN 08/06/2024 10:57 /es/ YULISSA HENDERSON APRN ADVANCED PRACTICE REGISTERED NURSE, [facility] 09/03/2024 ADDENDUM STATUS: UNSIGNED You may not VIEW this UNSIGNED Addendum. GENIA MARIN[facility] August 06, 2024 10:37 AM PHARMACY HOME [facility] E & M NOTE: LOCAL TITLE: [facility] PHARMACY NOTE STANDARD TITLE: PHARMACY HOME HEALTH E & M NOTE DATE OF NOTE: AUGUST 06, 2024@10:37 ENTRY DATE: AUGUST 06, 2024@10:37:06 AUTHOR: JANAE SHOOK EXP COSIGNER: URGENCY: STATUS: COMPLETED [facility] PHARMACY NOTE Has ADDENDA PMH: 1. Gastroesophageal reflux disease without esophagitis 2. Constipation 3. Multiple sclerosis 4. Age related macular degeneration 5. Closed fracture of shaft of right fibula 6. Incontinence 7. Type 2 diabetes mellitus 8. Essential hypertension 9. Hyperlipidemia 10. Carcinoma of prostate 11. Pain of right knee joint Allergies: Patient has answered NKA VS: 07/09/24 Temperature: 97.2 F (36.2 C) Pulse: Pulse: 67 Pulse Oximetry: 95 Respirations: Respirations: 16 Blood Pressure: Blood Pressure: 112/64 Immunizations: IM - Immunizations ADMINISTERED Immunization Series Date Facility Reaction Info HEP A, ADULT 2 09/01/2018 [facility] HEP A, ADULT 1 12/29/2017 [facility] HEPB-CPG 2 11/26/2018 [facility] HEPB-[facility] 1 10/29/2018 [facility] INFLUENZA, UNSPECIFIED FORMULATI* 01/05/2024 Home [facility] RECOMBINANT 1 01/04/2019 [facility] CONTRAINDICATED No data available REFUSED ======= No data available Medications: Active and Recently Outpatient Medications (including Supplies): Active Outpatient Medications Status 1) BRIEF,TRANQ ALEX OVERNITE XL#5953 PULLUP USE 1 BRIEF ACTIVE DIRECTED THREE TIMES A DAY Indication: FOR INCONTINENCE 2) CLOTRIMAZOLE 1% TOP CREAM APPLY SMALL AMOUNT TO AFFECTED ACTIVE AREA THREE TIMES A DAY NEEDED APPLY TO GROIN RASH Indication: FOR FUNGAL INFECTION 3) DICLOFENAC NA 1% TOP GEL APPLY 2 GRAM STRIP TO AFFECTED AREA ACTIVE EVERY 6 HOURS NEEDED APPLY TO RIGHT KNEE Indication: FOR PAIN 4) GLOVE VINYL MEDIUM PWDR-FREE NONSTERILE USE GLOVE ACTIVE DIRECTED FOUR TIMES A DAY Indication: CLEANING 5) HYDROPHILIC (EQV EUCERIN) TOP CREAM APPLY SMALL AMOUNT TO ACTIVE AFFECTED AREA NEEDED Indication: FOR DRY SKIN 6) IPRATROPIUM BR 0.03% NASAL SPRAY SPRAY 1 SPRAY IN NOSE WITH ACTIVE MEALS Indication: FOR NASAL ALLERGIES 7) UNDERPAD,BED [id number] TRANQUILITY-2710 USE UNDERPAD ACTIVE DIRECTED THREE TIMES A DAY NEEDED Inactive Outpatient Medications Status 1) MEDICATION DISPOSAL PATIENT PKT USE 1 PACKET DIRECTED Indication: FOR RETURNING MEDICATIONS Active Non-VA Medications Status 1) Non-VA ASPIRIN [...] DAY ACTIVE Indication: FOR INFECTION 11) Non-VA POLYETHYLENE GLYCOL 3350 ORAL PWDR 17 GRAMS (ONE ACTIVE CAPFUL FILLED TO LINE) IN LIQUID MOUTH DAILY Indication: FOR CONSTIPATION 12) Non-VA PRESERVISION AREDS VITAMIN 2 CAPSULES MOUTH DAILY ACTIVE Indication: UNKNOWN 13) Non-VA PSYLLIUM 520MG CAP 1 CAPSULE MOUTH DAILY ACTIVE Indication: UNKNOWN 14) Non-VA SILODOSIN 8MG ORAL CAP 8MG MOUTH [...] - Partial Panel found WBC , BLOOD, 05/25/24@1130 9.6 K/cmm (5.0 - 10.0) RBC, BLOOD, 05/25/24@1130 4.00 LM/cmm (4.6 - 6.2) HGB, BLOOD, 05/25/24@1130 11.3 Lg/dL (14.0 - 18.0) HCT, BLOOD, 05/25/24@1130 35.0 L% (42.0 - 52.0) MCV, BLOOD, 05/25/24@1130 87.5 fL (80.0 - 94.0) MCH, BLOOD, 05/25/24@1130 28.3 pg (27.0 - 31.0) MCHC, BLOOD, 05/25/24@1130 32.3 g/dL (32.0 - 36.0) RDW, BLOOD, 05/25/24@1130 15.4 % (11.0 - 16.0) PLT, BLOOD, 05/25/24@1130 232 K/cmm (150 - 450) MPV, BLOOD, 05/25/24@1130 11.0 fL (9.0 - 13.1) NRBC, BLOOD, 05/25/24@1130 0.0 % (0.0 - 0.0) Lipid Prof Nanci. date CHOL TRIG HDL LIPID PHLDL CHOLSERUM AP 02/06/24 12:24 136 154 H 37 L BLOOD Nov Reference 2023 12:24 Units Ranges GLYCO-H 6.4 % 4.4 - 6.4 TSH: 0.6365 mIU/mL (02/06/2024 12:24) B-12/FOLATE: Collection DT Specimen Test Name Result Units Ref Range 02/06/2024 12:24 PLASMA!! B12 VITAMIN >2000 H pg/mL 213 - 816 IRON: 53 ug/dL L (05/25/2024 11:30) IRON SATURATION: 23 % (05/25/2024 11:30) TIBC: 233 mg/dL L (05/25/2024 11:30) FERRITIN: 141.1 ng/mL (05/25/2024 11:30) Vitamin D: Collection DT Specimen Test Name Result Units Ref Range 02/06/2024 12:24 SERUM !! 25-OH VITAMIN D 50.7 H ng/mL 20.0 - 50.0 Estimated CrCl: >100 ml/min (ABW and Scr); 77 ml/min (Scr=1, eGFR adj for BW) Lipid Goal: moderate-dose statin (DM+HTN) - met (atorva) BP Goal: <140/90 (DM) - met A1c Goal: <8% (age/comorbidities) - met Medication Outcomes [facility] meds: clotrimazole 1% cream apply small amt to AA TID PRN: fungal infxn diclofenac 1% gel apply 2 gm to AA Q6H PRN: pain hydrophilic cream apply small amt to AA PRN: dry skin ipratropium br 0.03% nasal spray 1 spray in nose with meals: allergies NonVA meds: ASPIRIN 81MG CHEW TAB DAILY: cardioprotection in DM ATORVASTATIN CALCIUM TAB 20MG AT [...] Dr. Dave Diamond *NonVA PCP Bertha alberto [place] New therapies/medication changes since last Pharmacy review: - no changes - immunizations recommended 05/18/24 Plan/recommendations: 1. Vitamin D: Recommend d/c of nonVA cholecalciferol supplementation. 25OHD elevated. 2. Hyponatremia: Na low last check. Likely not med related. Continue to monitor. medications for review: none Medications were reviewed [...] medication lists made Discontinue or remove medication /es/ Pharm. PepitoDViviane Clinical Pharmacist - [facility] Signed: 08/06/2024 10:50 Receipt Acknowledged By: 08/06/2024 11:03 /es/ LYNN ALCOCER RN 08/06/2024 10:57 /es/ YULISSA HENDERSON APRN ADVANCED PRACTICE REGISTERED NURSE, [facility] 09/03/2024 ADDENDUM STATUS: COMPLETED Mr. Leanne Conteh was admitted to the hospital and found to be at [facility] [phone]. Called facility and obtained the following verbal med list from the nurse: -Famotidine 20mg tab po bid -Bisoprolol fumarate 5mg tab po once daily -Vitamin E 400 unit tab po once daily -Acetaminphen 325mg tab: 2 tabs po q4h prn -Gabapentin 100mg cap: 2 caps po tid -Atorvastatin 20mg tab po once qhs -Methenamine hipurate 1gm tab po bid -Aspirin 81mg EC tab po once daily -Lisinopril 5mg tab po once daily -Polyethylene glycol 3350 oral powder: 17gm po once daily -Metformin 500mg ER tab po once daily -Cholecalciferol 50mcg cap po once daily -PreserVision AREDS2 1 tab po bid -Sodium Chloride 1000mg tab po once daily -Tamsulosin 0.4mg cap po QPM -Nystatin topical powder to christiano-area PRN -Levofloxacin 750mg tab po once daily through 09/02/24 -Duonebs 3ml via nebulizer q6h through 09/08/24 -Florastor 2 tab/cap po bid through 09/16/24 /rosette/ GENIA MARIN CLINICAL MED REC PHARMACIST Signed: 09/03/2024 14:04 Receipt Acknowledged By: 09/03/2024 14:08 /rosette/ RIAN YI, KHANHD, BCACP PHARMACIST for JANAE SHOOK 09/03/2024 ADDENDUM STATUS: COMPLETED Pt has been discharged from [facility]. 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 /rosette/ RIAN YI PHARMD, BCACP PHARMACIST Signed: 09/03/2024 14:08 Receipt Acknowledged By: * AWAITING SIGNATURE * GENIA MARIN,JANAE RUBI-D [facility]
--- OUTSIDE RECORDS SUMMARY | 2024-08-09 06:48 | XMS_ITS | Encounter Summary ---
Author Name [facility] [place] Organization [facility] [place] [place] Address [address] [place] [address] Care Team Providers Care Sign Shop Supervisor Name Role Phone YULISSA HENDERSON Primary [...] PLAN F Mar 24, 2014 PLAN F [id number] LUIS MANUEL PERDOMO PATIENT BS [place] [employer] PREFERRED PROVIDER ORGANIZAT ION (PPO) [facility] Sep 21, 2012 [id number] LUIS MANUEL PERDOMO PATIENT [employer] ([id number]) PRESCRIPT ION WL3A Sep 21, 2012 [id number] [phone] LUIS MANUEL PERDOMO PATIENT MEDICARE (WNR) MEDICARE (M) PART B Sep 21, 2012 PART B [id number] NOEMI PERDOMO PATIENT MEDICARE (WNR) MEDICARE (M) PART A Jan 22, 2011 PART A [id number] NOEMI PERDOMO PATIENT MEDICARE PART D (WNR) MEDICARE (M) PART D Mar 24, 2014 PART D [id number] LUIS MANUEL PERDOMO PATIENT Selected Encounter This section includes the information on record at [place] for the Encounter. Date/Time Encounter Type Encounter Description Reason Provider Source August 09, 2024 10:48 AM CASE MANAGEMENT [facility] - SOCIAL SERVICES SPECIALIST ICD-10-CM Z65.9 Problem related to unspecified psychosocial circumstances [place] [facility] Encounter Template Text not used by PA Assessments - Encounter Diagnoses This section includes the primary and secondary diagnoses documented for the Encounter. Date/Time Primary/Secondary Diagnosis Diagnosis Name Provider Source August 09, 2024 11:05 AM PRIMARY Problem related to unspecified psychosocial circumstances [place] [facility] Plan of Treatment: Future Appointments (+ 6 months) and Future Tests (+/- 45 days) The Plan of Treatment section includes future care activities for the patient from all [facility]. This section includes future appointments and future orders which are active, pending or scheduled. Future Appointments This section includes appointments that were scheduled to occur 6 months from the date of the Encounter, up to a maximum of 20 appointments. The data comes from all [facility]. Appointment Date/Time Appointment Type Appointme nt Facility Name Aug 29, 2024 07:38 PM AMBULATORY - MEDICINE IONA MATHEW [facility] Aug 29, 2024 09:00 PM [facility] Sep 13, 2024 08:00 AM AMBULATORY - NONE [facility] Sep 30, 2024 01:30 PM AMBULATORY - SURGERY AMANDA ZUNIGA [facility] Active, Pending, and Scheduled Orders This section includes a listing of several types of active, pending, and scheduled orders, including clinic medications orders, diagnostic test orders, procedure orders and consult orders; where the start date of the order is 45 days before the date of the Encounter or 45 days after the date of theEncounter. The data comes from all [place] treatment [facility]. Test Date/Time Test Type Test Details Facility Name Sep 13, 2024 01:33 PM Consult Order [facility] [employer] [facility] Lab Results: +/- 30 days of the encounter This section includes the Chemistry and Hematology Lab Results on record with PA for the patient. Radiology Reports and Pathology Reports are provided separately, in subsequent sections. Lab Results This section contains the Chemistry/Hematology Results that were resulted 30 days before or 30 daysafter the date of the Encounter. Date/Time Source Result Type Result - Unit Interpretation Reference Range Specimen Type Comment Sep 08, 2024 09:13 PM [facility] GLUCOSE-HAND MONITOR CAPILLARY Specimen Type: CAPILLARY Comment: Test performed by: [id number] Meter #: [id number] Ordering Provider: FRANCK TURNER Report Released Date/Time: Sep 08, 2024 09:31 PM Reporting Lab: [address] [address] Performing Lab: [address] [address] GLUCOSE-HAND MONITOR 107 mg/dL H Sep 08, 2024 03:49 PM [facility] GLUCOSE-HAND MONITOR CAPILLARY Specime n Type: CAPILLARY Comment: AAMIR RN notified Test performed by: [id number] Meter #: [id number] Ordering Provider: FRANCK TURNER Report Released Date/Time: Sep 08, 2024 04:33 PM Reporting Lab: [address] [address] Performing Lab: [address] [address] GLUCOSE-HAND MONITOR 162 mg/dL H Sep 08, 2024 11:43 AM [facility] GLUCOSE-HAND MONITOR CAPILLARY Specime n Type: CAPILLARY Comment: AAMIR RN notified Test performed by: [id number] Meter #: [id number] Ordering Provider: FRANCK TURNER Report Released Date/Time: Sep 08, 2024 12:03 PM Reporting Lab: [address] [address] Performing Lab: [address] [address] GLUCOSE-HAND MONITOR 133 mg/dL H Sep 08, 2024 06:13 AM [facility] GLUCOSE-HAND MONITOR CAPILLARY Specime n Type: CAPILLARY Comment: Test performed by: [id number] Meter #: [id number] Ordering Provider: FRANCK TURNER Report Released Date/Time: Sep 08, 2024 06:46 AM Reporting Lab: [address] [address] Performing Lab: [address] [address] GLUCOSE-HAND MONITOR 104 mg/dL H Sep 07, 2024 07:59 PM [facility] GLUCOSE-HAND MONITOR CAPILLARY Specime n Type: CAPILLARY Comment: Test performed by: [id number] Meter #: [id number] Ordering Provider: FRANCK TURNER Report Released Date/Time: Sep 07, 2024 09:05 PM Reporting Lab: [address] [address] Performing Lab: [address] [address] GLUCOSE-HAND MONITOR 107 mg/dL H Sep 07, 2024 04:39 PM [facility] GLUCOSE-HAND MONITOR CAPILLARY Specime n Type: CAPILLARY Comment: Test performed by: [id number] Meter #: [id number] Ordering Provider: FRANCK TURNER Report Released Date/Time: Sep 07, 2024 05:09 PM Reporting Lab: [address] [address] Performing Lab: [address] [address] GLUCOSE-HAND MONITOR 105 mg/dL H Sep 07, 2024 11:41 AM [facility] GLUCOSE-HAND MONITOR CAPILLARY Specime n Type: CAPILLARY Comment: Test performed by: [id number] Meter #: [id number] Ordering Provider: FRANCK TURNER Report Released Date/Time: Sep 07, 2024 12:41 PM Reporting Lab: [address] [address] Performing Lab: [address] [address] GLUCOSE-HAND MONITOR 144 mg/dL H Sep 07, 2024 05:56 AM [facility] GLUCOSE-HAND MONITOR CAPILLARY Specime n Type: CAPILLARY Comment: Test performed by: [id number] Meter #: [id number] Ordering Provider: FRANCK TURNER Report Released Date/Time: Sep 07, 2024 06:31 AM Reporting Lab: [address] [address] Performing Lab: [address] [address] GLUCOSE-HAND MONITOR 96 mg/dL Sep 06, 2024 08:10 PM [facility] GLUCOSE-HAND MONITOR CAPILLARY Specime n Type: CAPILLARY Comment: Test performed by: [id number] Meter #: [id number] Ordering Provider: FRANCK TURNER Report Released Date/Time: Sep 06, 2024 08:52 PM Reporting Lab: [address] [address] Performing Lab: [place] [id number] GLUCOSE-HAND MONITOR 124 mg/dL H Sep 06, 2024 04:27 PM [facility] GLUCOSE-HAND MONITOR CAPILLARY Specime n Type: CAPILLARY Comment: Test performed by: [id number] Meter #: [id number] Ordering Provider: FRANCK TURNER Report Released Date/Time: Sep 06, 2024 05:15 PM Reporting Lab: [address] [address] Performing Lab: [address] [address] GLUCOSE-HAND MONITOR 107 mg/dL H Sep 06, 2024 12:12 PM [facility] GLUCOSE-HAND MONITOR CAPILLARY Specime n Type: CAPILLARY Comment: Test performed by: [id number] Meter #: [id number] Ordering Provider: FRANCK TURNER Report Released Date/Time: Sep 06, 2024 12:29 PM Reporting Lab: [address] [address] Performing Lab: [address] [address] GLUCOSE-HAND MONITOR 181 mg/dL H Sep 06, 2024 06:13 AM [facility] GLUCOSE-HAND MONITOR CAPILLARY Specime n Type: CAPILLARY Comment: Test performed by: [id number] Meter #: [id number] Ordering Provider: FRANCK TURNER Report Released Date/Time: Sep 06, 2024 06:36 AM Reporting Lab: [address] [address] Performing Lab: [address] [address] GLUCOSE-HAND MONITOR 102 mg/dL H Sep 05, 2024 08:47 PM [facility] GLUCOSE-HAND MONITOR CAPILLARY Specime n Type: CAPILLARY Comment: Test performed by: [id number] Meter #: [id number] Ordering Provider: FRANCK TURNER Report Released Date/Time: Sep 06, 2024 02:13 AM Reporting Lab: [place] [id number] Performing Lab: [place] [phone] GLUCOSE-HAND MONITOR 103 mg/dL H Sep 05, 2024 04:40 PM [facility] GLUCOSE-HAND MONITOR CAPILLARY Specime n Type: CAPILLARY Comment: AAMIR RN notified Test performed by: [id number] Meter #: [id number] Ordering Provider: FRANCK TURNER Report Released Date/Time: Sep 05, 2024 05:11 PM Reporting Lab: [address] [address] Performing Lab: [address] [address] GLUCOSE-HAND MONITOR 113 mg/dL H Sep 05, 2024 12:06 PM [facility] GLUCOSE-HAND MONITOR CAPILLARY Specime n Type: CAPILLARY Comment: Test performed by: [id number] Meter #: [id number] Ordering Provider: FRANCK TURNER Report Released Date/Time: Sep 05, 2024 12:23 PM Reporting Lab: [address] [address] Performing Lab: [address] [address] GLUCOSE-HAND MONITOR 115 mg/dL H Sep 05, 2024 06:26 AM [facility] GLUCOSE-HAND MONITOR CAPILLARY Specime n Type: CAPILLARY Comment: AAMIR Correction Dose Test performed by: [id number] Meter #: [id number] Ordering Provider: FRANCK TURNER Report Released Date/Time: Sep 05, 2024 06:43 AM Reporting Lab: [address] [address] Performing Lab: [address] [address] GLUCOSE-HAND MONITOR 111 mg/dL H Sep 04, 2024 08:59 PM [facility] GLUCOSE-HAND MONITOR CAPILLARY Specime n Type: CAPILLARY Comment: AAMIR RN notified Test performed by: [id number] Meter #: [id number] Ordering Provider: FRANCK TURNER Report Released Date/Time: Sep 04, 2024 09:36 PM Reporting Lab: [address] [address] Performing Lab: [address] [address] GLUCOSE-HAND MONITOR 123 mg/dL H Sep 04, 2024 04:41 PM [facility] GLUCOSE-HAND MONITOR CAPILLARY Specime n Type: CAPILLARY Comment: AAMIR RN notified Test performed by: [id number] Meter #: [id number] Ordering Provider: FRANCK TURNER Report Released Date/Time: Sep 04, 2024 05:03 PM Reporting Lab: [address] [address] Performing Lab: [address] [address] GLUCOSE-HAND MONITOR 118 mg/dL H Sep 04, 2024 12:36 PM [facility] GLUCOSE-HAND MONITOR CAPILLARY Specime n Type: CAPILLARY Comment: AAMIR RN notified Test performed by: [id number] Meter #: [id number] Ordering Provider: FRANCK TURNER Report Released Date/Time: Sep 04, 2024 12:53 PM Reporting Lab: [address] [address] Performing Lab: [address] [address] GLUCOSE-HAND MONITOR 129 mg/dL H Sep 04, 2024 12:03 PM [facility] RESPIRATORY VIRUS PANEL (BIOFIRE) NASOPHARYN X Specimen Type: NASOPHARYNX Comment: ~For Test: RESPIRATORY VIRUS PANEL (BIOFIRE) ~ORDER READ BACK TO: FRANCK TURNER 09/04/24@11:30 Ordering Provider: FRANCK TURNER Report Released Date/Time: Sep 04, 2024 11:33 AM Reporting Lab: [address] [address] Performing Lab: [address] [address] ADENOVIRUS (BIOFIRE) Not Detected -Not D etected [...] -Not Detected Sep 04, 2024 06:55 AM [facility] MAGNESIUM PLASMA Specimen Type: PLASM A Comment: [...] Sep 03, 2024 11:10 AM Reporting Lab: [address] [address] Performing Lab: [address] [address] MAGNESIUM 1.8 mg/dL 1.6-2.6 Sep 04, 2024 06:55 AM [facility] PANEL 1 PLASMA Specimen Type: PLASM A [...] Sep 03, 2024 11:10 AM Reporting Lab: [address] [address] Performing Lab: [address] [address] CREATININE 0.75 mg/dL 0.72-1.25 UREA NITROGEN 13 mg/dL 9-25 GLUCOSE 105 mg/dL H 74-100 SODIUM 128 mmol/L L 136-145 POTASSIUM 3.9 mmol/L 3.5-5.1 CHLORIDE 99 mmol/L 98-107 CO2 21 mmol/L L 22-29 CALCIUM 8.0 mg/dL L 8.4-10.2 ANION GAP 8 meq/L 3-19 eGFR (CKD-EPI) >90 Sep 04, 2024 06:02 AM [facility] GLUCOSE-HAND MONITOR CAPILLARY Specime n Type: CAPILLARY Comment: Test performed by: [id number] Meter #: [id number] Ordering Provider: FRANCK TURNER Report Released Date/Time: Sep 04, 2024 06:28 AM Reporting Lab: [address] [address] Performing Lab: [address] [address] GLUCOSE-HAND MONITOR 114 mg/dL H 71-99 Sep 03, 2024 05:19 PM [facility] GLUCOSE-HAND MONITOR CAPILLARY Specime n Type: CAPILLARY Comment: Test performed by: [id number] Meter #: [id number] Ordering Provider: FRANCK TUNRER Report Released Date/Time: Sep 03, 2024 05:37 PM Reporting Lab: [address] [address] Performing Lab: [address] [address] GLUCOSE-HAND MONITOR 124 mg/dL H -99 Sep 03, 2024 04:41 PM [facility] GLUCOSE-HAND MONITOR CAPILLARY Specime n Type: CAPILLARY Comment: Test performed by: [id number] Meter #: [id number] Ordering Provider: FRANCK TURNER Report Released Date/Time: Sep 03, 2024 06:09 PM Reporting Lab: [address] [address] Performing Lab: [address] [address] GLUCOSE-HAND MONITOR 112 mg/dL H 71-99 Sep 03, 2024 01:35 PM [facility] CREATININE URINE Specimen Type: URINE Comment: ~Altered mental status with no identifiable cause Ordering Provider: FRANCK TURNER Report Released Date/Time: Sep 02, 2024 04:44 PM Reporting Lab: [address] [address] Performing Lab: [address] [address] CREATININE 150.9 mg/dL Sep 03, 2024 01:35 PM [facility] URINE LYTES URINE Specimen Type : URINE Comment: ~Altered mental status with no identifiable cause Ordering Provider: FRANCK TURNER Report Released Date/Time: Sep 02, 2024 04:44 PM Reporting Lab: [address] [address] Performing Lab: [address] [address] SODIUM 130 mmol/L POTASSIUM 47.6 mmol/L CHLORIDE 137 mmol/L Sep 03, 2024 01:35 PM [facility] UREA NITROGEN URINE Specimen Type : URINE Comment: ~Altered mental status with no identifiable cause Ordering Provider: FRANCK TURNER Report Released Date/Time: Sep 02, 2024 04:44 PM Reporting Lab: [address] [address] Performing Lab: [address] [address] UREA NITROGEN 320 mg/dL Sep 03, 2024 01:35 PM [facility] OSMOLALITY URINE Specimen Type: URINE Comment: ~Altered mental status with no identifiable cause Ordering Provider: FRANCK TURNER Report Released Date/Time: Sep 02, 2024 04:44 PM Reporting Lab: [address] [address] Performing Lab: [address] [address] OSMOLALITY 522 mosm/kg 38-1400 Sep 03, 2024 01:35 PM [facility] URINALYSIS WITH REFLEX TO CULTURE URINE Specimen Type: URINE Comment: ~Altered mental status with no identifiable cause Ordering Provider: FRANCK TURNER Report Released Date/Time: Sep 02, 2024 04:44 PM Reporting Lab: [address] [address] Performing Lab: [address] [address] URINE COLOR Yellow Colorless-Yellow APPEARANCE CLOUDY H [...] 90 /[LPF] H 0-28 Sep 03, 2024 11:58 AM [facility] GLUCOSE-HAND MONITOR CAPILLARY Specime n Type: CAPILLARY Comment: AAMIR RN notified Test performed by: [id number] Meter #: [id number] Ordering Provider: FRANCK TURNER Report Released Date/Time: Sep 03, 2024 12:15 PM Reporting Lab: [place] [phone] Performing Lab: [place] [phone] GLUCOSE-HAND MONITOR 135 mg/dL H 71-99 Sep 03, 2024 07:09 AM [facility] GLUCOSE-HAND MONITOR CAPILLARY Specime n Type: CAPILLARY Comment: Test performed by: [id number] Meter #: [id number] Ordering Provider: FRANCK TURNER Report Released Date/Time: Sep 03, 2024 07:26 AM Reporting Lab: [address] [address] Performing Lab: [place] [phone] GLUCOSE-HAND MONITOR 120 mg/dL H 71-99 Sep 03, 2024 07:05 AM [facility] CBC/PLT BLOOD Specimen Type: BLOOD No comment entered. Ordering Provider: FRANCK TURNER Report Released Date/Time: Sep 02, 2024 04:29 PM Reporting Lab: [address] [address] Performing Lab: [address] [address] WBC 6.9 10*3/uL 5.0-10.0 RBC 3.48 10*6/uL L 4.6-6.2 HGB 9.5 g/dL L 14.0-18.0 HCT 29.1 L 42.0-52.0 MCV 83.6 fL 80.0-94.0 MCH 27.3 pg 27.0-31.0 MCHC 32.6 g/dL 32.0-36.0 PLT 258 10*3/uL 150-450 MPV 10.3 fL 9.0-13.1 RDW 14.8 11.0-16.0 NRBC 0.0 0.0-0.0 Sep 03, 2024 07:05 AM [facility] MAGNESIUM PLASMA Specimen Type: PLASM A Comment: [...] Sep 02, 2024 04:29 PM Reporting Lab: [facility] [address] [place] [address] Performing Lab: [address] [address] MAGNESIUM 1.7 mg/dL 1.6-2.6 Sep 03, 2024 07:05 AM [facility] PANEL 1 PLASMA Specimen Type: PLASM A [...] Sep 02, 2024 04:29 PM Reporting Lab: [address] [address] Performing Lab: [address] [address] CREATININE 0.82 mg/dL 0.72-1.25 UREA NITROGEN 12 mg/dL 9-25 GLUCOSE 109 mg/dL H 74-100 SODIUM 129 mmol/L L 136-145 POTASSIUM 4.2 mmol/L 3.5-5.1 CHLORIDE 99 mmol/L 98-107 CO2 21 mmol/L L 22-29 CALCIUM 8.1 mg/dL L 8.4-10.2 ANION GAP 9 meq/L 3-19 eGFR (CKD-EPI) 90 Sep 03, 2024 07:05 AM [facility] GLYCOHEMOGLOBIN BLOOD Specimen Type: BLOOD Comment: Prediabetes: 5.7%-6.4% Diabetes: >= 6.5% [facility] guidelines for A1c interpretation: Glycemic control targets [...] 8.73 and 9.27. Ref: https://ngsp.org/CAPdata.asp. The in-house Optasite-Kash D-100 analyzer has a historical CV <= 2%. Contact the laboratory for further performance characteristics of this assay. Ordering Provider: FRANCK TURNER Report Released Date/Time: Sep 02, 2024 04:29 PM Reporting Lab: [place] [phone] Performing Lab: [address] [address] GLYCOHEMOGLOBIN 5.6 4.4-5.6 Sep 03, 2024 07:05 AM [facility] OSMOLALITY SERUM Specimen Type: SERUM No comment entered. Ordering Provider: FRANCK TURNER Report Released Date/Time: Sep 02, 2024 04:44 PM Reporting Lab: [address] [address] Performing Lab: [address] [address] OSMOLALITY 271 mosm/kg L 280-300 Sep 02, 2024 08:15 PM [facility] GLUCOSE-HAND MONITOR CAPILLARY Specime n Type: CAPILLARY Comment: AAMIR DEXTER notified Test performed by: [id number] Meter #: [id number] Ordering Provider: FRANCK TURNER Report Released Date/Time: Sep 02, 2024 08:57 PM Reporting Lab: [address] [address] Performing Lab: [address] [address] GLUCOSE-HAND MONITOR 126 mg/dL H 71-99 Sep 02, 2024 06:10 PM [facility] MRSA SURVL NARES DNA NARES Specime n [...] Sep 02, 2024 05:12 PM Reporting Lab: [address] [address] Performing Lab: [address] [address] MRSA SURVL NARES DNA Negative Negative Sep 02, 2024 05:36 PM [facility] GLUCOSE-HAND MONITOR CAPILLARY Specime n Type: CAPILLARY Comment: Test performed by: [id number] Meter #: [id number] Ordering Provider: FRANCK TURNER Report Released Date/Time: Sep 02, 2024 05:53 PM Reporting Lab: [address] [address] Performing Lab: [address] [address] GLUCOSE-HAND MONITOR 127 mg/dL H 71-99 Aug 29, 2024 10:04 PM [facility] URINALYSIS WITH REFLEX TO CULTURE URINE Specimen Type: URINE Comment: ~For Test: URINALYSIS WITH REFLEX TO CULTURE ~REORDER Ordering Provider: FELISA COLE Report Released Date/Time: Aug 29, 2024 09:36 PM Reporting Lab: [address] [address] Performing Lab: [address] [address] URINE COLOR Yellow Colorless-Yellow APPEARANCE Clear Clear [...] /[LPF] 0-28 Aug 29, 2024 08:32 PM [facility] HIGH SENSITIVITY TROPONIN I PLASMA Specimen Ty [...] I information resource can be reached in [facility] in the Tools menu, under the Education [...] Aug 29, 2024 07:55 PM Reporting Lab: [address] [address] Performing Lab: [address] [address] HIGH SENSITIVITY TROPONIN I 7 4-35 Aug 29, 2024 08:32 PM [facility] CBC/PLT BLOOD Specimen Type: BLOOD No comment entered. Ordering Provider: FELISA COLE Report Released Date/Time: Aug 29, 2024 07:55 PM Reporting Lab: [address] [address] Performing Lab: [address] [address] WBC 11.2 10*3/uL H 5.0-10.0 RBC 3.97 10*6/uL L 4.6-6.2 HGB 10.9 g/dL L 14.0-18.0 HCT 33.5 L 42.0-52.0 MCV 84.4 fL 80.0-94.0 MCH 27.5 pg 27.0-31.0 MCHC 32.5 g/dL 32.0-36.0 PLT 230 10*3/uL 150-450 MPV 10.2 fL 9.0-13.1 RDW 14.6 11.0-16.0 NRBC 0.0 0.0-0.0 Aug 29, 2024 08:32 PM [facility] PANEL 5 PLASMA Specimen Type: PLASM A [...] Aug 29, 2024 07:55 PM Reporting Lab: [address] [address] Performing Lab: [address] [address] CREATININE 0.85 mg/dL 0.72-1.25 UREA NITROGEN 15 [...] ALL of a patient's completed or amended PA Advance and Rescinded Directives. The entries below indicate that a directive exists for the patient, but an actual copy is not included with this document. The data comes from all PA facilities. Date Advance Directives Provider Source Mar 08, 2024 ADVANCE DIRECTIVE DISCUSSION [place] [facility] Radiology Reports: +/- 30 days of the [...] the Encounter. The data comes from all PA treatment facilities. Date/Time Radiology Report Provider Source Sep 06, 2024 01:40 PM MRI BRAIN W & W/O: LUIS MANUEL PERDOMO [id number] -[id number] M Exm Date: SEP 06, 2024@13:40 Req Phys: FRANCK TURNER [facility] Loc: 5-MED/TEL/09-06-2024@19:09 Img Loc: [facility] Service: [place] [address] (Case [id number] COMPLETE) MRI BRAIN W & W/O (MRI Detailed) CPT:84610 Contrast Media : Gadolinium Reason for Study: SEE CLINICAL HISTORY Pharmaceutical: GADOTERIDOL 279.3MG/ML 20ML INJ, 19ml Clinical History: MRI Screening (Required): IMPLANTED DEVICE DOCUMENTATION IMPLANTED DEVICE DOCUMENTATION NOT FOUND Does the [place] have any Cardiac Implants? None Does the have any implanted stimulators? None Does the have cochlear implants? No Does the [place] have Cerebral aneurysm clip(s)? I don't know Does the have any shrapnel? I don't know If yes, where in your body? Please list other implants not listed above: MRI table has a weight limit of 551 lbs. 's Weight: *212 lb [96.16 kg] (09/04/2024 05:19) Is this patient claustrophobic?: No REASON FOR EXAM:MULTIPLE SCLEROSIS (indicate suspected or established) PERTINENT PATIENT HISTORY: MS c/f for flare Risk factors for GADOLINIUM NEPHROGENIC SYSTEMIC SCLEROSIS: Report Status: Verified Date Reported: SEP 06, 2024 Date Verified: SEP 06, 2024 [employer] E-Sig: Report: MRI brain without and with gadolinium A small metal fragment within the left frontal bone distorts the MR image and severely limited limits the evaluation of the left frontal lobe and its white matter There is extensive FLAIR signal abnormality within the periventricular and deep white matter. There is extensive FLAIR signal about the corpus callosum and pericallosal tissues with Vital's fingers. Some of these are vacuolized. No enhancement of these lesions is present. Incidental note made of empty sella syndrome, a normal variant There is a 2 cm cyst in the right temporalis muscle, likely of no significance Impression: Extensive deep white matter change in the distribution suggestion suggest suggestive of demyelinating disease. None of these enhance. There is some vacuolization of of these lesions Primary Diagnostic Code: SIGNIFICANT ABNORMALITY, ATTN NEEDED Primary Interpreting Staff: ARCENIO LEYVA, Staff Radiologist Verified by hot tamale worker for ARCENIO LEYVA /ARCENIO AVILA AAMIRWILSON-CDD [facility] Sep 06, 2024 01:40 PM MRI C SPINE W & W/ O CONTRAST(FURTHER SEQUENCES): LUIS MANUEL PERDOMO [id number] -1945 M Exm Date: SEP 06, 2024@13:40 Req Phys: FRANCK TURNER [facility] Loc: 5-MED/TEL/09-07-2024@06:42 Img Loc: [facility] Service: [place] [address] (Case [id number] COMPLETE) MRI C SPINE W & W/O CONTRAST(FURT(MRI Detailed) CPT:49910 Contrast Media : Gadolinium Reason for Study: SEE CLINICAL HISTORY Pharmaceutical: GADOTERIDOL 279.3MG/ML 20ML INJ, 19ml Clinical History: STATUS OF PLAIN FILMS:Not performed (Provide justification for MR W/O prior plain films below.) MRI for MS MRI Screening (Required): IMPLANTED DEVICE DOCUMENTATION IMPLANTED DEVICE DOCUMENTATION NOT FOUND Does the have any Cardiac Implants? None Does the [place] have any implanted stimulators? None Does the [place] have cochlear implants? No Does the [place] have Cerebral aneurysm clip(s)? I don't know Does the [place] have any shrapnel? I don't know If yes, where in your body? Please list other implants not listed above: MRI table has a weight limit of 551 lbs. 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 There is a subtle nonenhancing focus of STIR/T2 high signal along the posterior left lateral aspect of the spinal cord at C2-3 extending over an approximately 11 mm cephalocaudad extent as seen on axial image 26 of the T2 series and image 8 of the sagittal STIR series. A remote demyelinating plaque compatible with the stated history of multiple sclerosis should be considered first. Remaining spinal cord and the brainstem have a normal appearance. There is no acute demyelinating plaque. The cervical vertebrae are of normal height and alignment. The malignant bone marrow signal. Cerebellar tonsils are in anatomic position. As C2-3 there is no significant disc bulge. There is mild bilateral hypertrophic facet disease without stenosis. At C3-4 there is mild disc osteophyte complex eccentric to the left of midline. This is causing mild extradural mass effect on the thecal sac with borderline central canal stenosis. There is bilateral hypertrophic facet disease without foraminal stenosis. At C4-5 there is a large disc osteophyte complex causing extradural mass effect on the thecal sac with moderate central canal stenosis. There is spinal cord contour deformity There is bilateral uncovertebral and facet hypertrophy with bilateral foraminal stenoses right greater than left. At C5-6 there is disc osteophyte complex causing extradural mass effect effect on the thecal sac. There is mild central canal stenosis. At C6-7 there is disc osteophyte complex causing extradural mass effect on the thecal sac with mild central spinal canal stenosis. Impression: Subtle focus of nonenhancing signal abnormality in the spinal at C2-3 level felt to represent a remote demyelinating plaque compatible with the stated of multiple sclerosis. Multilevel degenerative disc and facet disease as described with central canal and foraminal stenoses greatest neural impingement appearing to be at C4-5. Primary Diagnostic Code: NO ALERT REQUIRED Primary Interpreting Staff: HUANG TAI Radiologist Verified by hot tamale worker for HUANG TAI /[facility]ANG [facility] Sep 03, 2024 10:45 AM CHEST SINGLE(1) EW: LUIS MANUEL PERDOMO [id number] -1945 M Exm Date: SEP 03, 2024@10:45 Req Phys: FRANCK TURNER Loc: 5-MED/TEL/09-03-2024@10:56 Img Loc: CDD RADIOLOGY Service: MEDICAL SERVICE [place] [id number] (Case [id number] COMPLETE)CHEST SINGLE(1) VIEW (RAD Detailed) CPT:62142 Proc Modifiers : PORTABLE EXAM Reason for Study: Eval volume status Clinical History: Report Status: Verified Date Reported: SEP 03, 2024 Date Verified: SEP 03, 2024 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 [employer] E-Sig: Report: EXAMINATION: SINGLE VIEW CHEST CLINICAL [...] NO ALERT REQUIRED Primary Interpreting Staff: HUANG TAI Radiologist Verified by hot tamale worker for HUANG TAI /[facility] Aug 29, 2024 08:[address] HEAD W/O CONT: LUIS MANUEL PERDOMO [id number] -1945 M Exm Date: AUG 29, 2024@20:28 Req Phys: FELISA COLE Loc: ED/4P-12A (Req'g Loc) Img Loc: CT SCAN Service: [place] [address] (Case [id number] COMPLETE) CT HEAD W/O CONT (CT Detailed) CPT:38381 Reason for Study: SEE CLINICAL HISTORY Clinical History: REASON FOR SEND OUT: ATTENDING PHYSICIAN NAME: New transient neurological s/s - suspected TIA HISTORY/REASON FOR EXAM: confusion Report Status: Verified Date Reported: AUG 29, 2024 Date Verified: AUG 29, 2024 Freight [employer] E-Sig: Report: HISTORY confusion COMPARISON No prior [...] Staff: ABDIRAHMAN CROW, Staff Physician Verified by hot tamale worker for ABDIRAHMAN CROW /ABDIRAHMAN [facility] Pathology Reports: +/- 30 days of the [...] the Encounter. The data comes from all [place] treatment facilities. Date/Time Pathology Report Provider Source Sep 03, 2024 01:35 PM LR MICROBIOLOGY RE PORT: Reporting Lab: [facility] [CLIA# [id number]] [address] [place] [address] Accession [UID]: [id number] [[id number]] Received: Sep 03, 2024@14:02 Collection sample: URINE, [...] =--=--=--=--=--=-- Performing Laboratory: Bacteriology Report Performed By: [facility] [CLIA# [id number]] [address] [place] [id number] MAGDY CALABRESE-Sav [facility] Sep 02, 2024 06:00 PM LR MICROBIOLOGY RE PORT: Reporting Lab: [facility] [CLIA# [id number]] [address] [place] [id number] Accession [UID]: [id number] [[id number]] Received: Sep 02, 2024@18:07 Collection sample: BLD CULTURE BOTTLES Collection date: Sep 02, 2024 18:00 Site/Specimen: BLOOD Provider: FRANCK TURNER Comment on specimen: L HAND Test(s) ordered: CULTURE, BLOOD................ completed: Sep 08, 2024 * BACTERIOLOGY FINAL REPORT => Sep 08, 2024 08:25 TECH CODE: [id number] Bacteriology Remark(s): Blood culture status=NO GROWTH (unless notified otherwise) 09/03/2024 AEROBIC: NO GROWTH ANAEROBIC: NO GROWTH =--=--=--=--=--=--=--=--=--=-- =--=--=--=--=--=--=--=--=--=-- =--=--=--=--=--=-- Performing Laboratory: Bacteriology Report Performed By: [facility] [CLIA# [id number]] [address] [place] [id number] [facility] Aug 29, 2024 10:18 PM LR MICROBIOLOGY RE PORT: Reporting Lab: [facility] [CLIA# [id number]] [address] [place], [place] [id number] Accession [UID]: [id number] [[id number]] Received: Aug 29, 2024@22:18 Collection sample: URINE, CLEAN CATCH Collection date: Aug 29, 2024 22:18 Site/Specimen: URINE Provider: FELISA COLE Test(s) ordered: CULTURE, URINE................ completed: Aug 31, 2024 09:51 * BACTERIOLOGY FINAL REPORT => Aug 31, 2024 09:51 TECH CODE: [id number] Bacteriology Remark(s): NO GROWTH 08/30/2024 <10,000 CFU/ML. 08/31/2024 =--=--=--=--=--=--=--=--=--=-- =--=--=--=--=--=--=--=--=--=-- =--=--=--=--=--=-- Performing Laboratory: Bacteriology Report Performed By: [facility] [CLIA# [id number]] [address] [place], [place] [id number] MAGDY CALABRESE [facility] Encounter Notes: All associated encounter notes This section contains the clinical notes associated to the Encounter. Date/Time Encounter Note(s) Provider Source August 09, 2024 10:48 AM TELEPHONE ENCOUNTE R NOTE: LOCAL TITLE: [facility] TELEPHONE NOTE STANDARD TITLE: TELEPHONE ENCOUNTER NOTE DATE OF NOTE: AUGUST 09, 2024@10:48 ENTRY DATE: AUGUST 09, 2024@10:49:17 AUTHOR: JOSHUA HILL EXP COSIGNER: URGENCY: STATUS: COMPLETED Time spent on phone call: 5 MIN Social work telephone note Date: July Dx: Problem related to certain psychosocial circumstances Procedure: SW telephone call Modifier: Licensed Clinical Journeyman Wireman Purpose of call: Return 's call concerning possible placement of . reported that last Friday when she talked to the RN, who relayed this message to call , she was At my wit's end. said [place] has a UTI and is taking antibiotics and this has helped, but she has hurt herself with helping [place] go to the bathroom. She said they talked about possible shelter placement. But, said they have decided not at this time. Discussed HM/SPORTS DOCTOR consult, but declined. Declined caregiver support consult, but said she will let this nursing home social worker know if she decides she is in need of these services. Agreed with her plan. Problem addressed: Caregiver Jered, possible need for placement. Plan of Care: Will follow up with in two weeks to check in concerning caregiver Michaelon and resources that may be needed. /rosette/ JOSHUA HILL Signed: 08/09/2024 11:05 JOSHUA HILL-MALKA [facility]
--- OUTSIDE RECORDS SUMMARY | 2024-08-29 15:38 | XMS_ITS | Encounter Summary ---
Author Name [facility] [facility] [place] Organization [facility] [place] Address [address] [place] [id number] Care Team Providers Care Engineering Technologist Name Role Phone YULISSA HENDERSON Primary [...] PLAN F Mar 24, 2014 PLAN F [id number] LUIS MANUEL PERDOMO PATIENT [facility] [place] [facility]UECARD PREFERRED PROVIDER ORGANIZAT ION (PPO) [facility] Sep 21, 2012 [id number] [phone] LUIS MANUEL PERDOMO PATIENT [facility] ([id number]) PRESCRIPT ION [id number] Sep 21, 2012 [id number] [phone] LUIS MANUEL PERDOMO PATIENT MEDICARE (WNR) MEDICARE (M) PART B Sep 21, 2012 PART B [id number] NOEMI PERDOMO PATIENT MEDICARE (WNR) MEDICARE (M) PART A Jan 22, 2011 PART A [id number] NOEMI PERDOMO PATIENT MEDICARE PART D (WNR) MEDICARE (M) PART D Mar 24, 2014 PART D [id number] LUIS MANUEL PERDOMO PATIENT Selected Encounter This section includes the information on record at [place] for the Encounter. Date/Time Encounter Type Encounter Description Reason Provider Source Aug 29, 2024 07:38 PM EMERGENCY DEPT VISIT LOW MDM EMERGENCY DEPT ICD-10-CM G35 Multiple sclerosis DOUGLASNEFTALIFELISA Stephen Encounter Template Text not used by [place] Assessments - Encounter Diagnoses This section includes the primary and secondary diagnoses documented for the Encounter. Date/Time Primary/Secondary Diagnosis Diagnosis Name Provider Source Aug 29, 2024 11:31 PM PRIMARY Multiple [facility] Aug 29, 2024 11:31 PM SECONDARY Other fatigue [facility] Plan of Treatment: Future Appointments (+ 6 months) and Future Tests (+/- 45 days) The Plan of Treatment section includes future care activities for the patient from all [place] treatmentfacilities. This section includes future appointments and future orders which are active, pending or scheduled. Future Appointments This section includes appointments that were scheduled to occur 6 months from the date of the Encounter, up to a maximum of 20 appointments. The data comes from all [place] treatment facilities. Appointment Date/Time Appointment Type Appointme nt Facility Name Sep 13, 2024 08:00 AM [facility] [facility] Sep 30, 2024 01:30 PM [facility] - SURGERY [place] [facility] Active, Pending, and Scheduled Orders This section includes a listing of several types of active, pending, and scheduled orders, including clinic medications orders, diagnostic test orders, procedure orders and consult orders; where the start date of the order is 45 days before the date of the Encounter or 45 days after the date of theEncounter. The data comes from all [place] treatment facilities. Test Date/Time Test Type Test Details Facility Name Sep 13, 2024 01:33 PM Consult Order [facility] Cons Public Health Specialist's Choice [facility] Lab Results: +/- 30 days of the encounter This section includes the Chemistry and Hematology Lab Results on record with [place] for the patient. Radiology Reports and Pathology Reports are provided separately, in subsequent sections. Lab Results This section contains the Chemistry/Hematology Results that were resulted 30 days before or 30 daysafter the date of the Encounter. Date/Time Source Result Type Result - Unit Interpretation Reference Range Specimen Type Comment Sep 09, 2024 12:16 PM [facility] GLUCOSE-HAND MONITOR CAPILLARY Specimen Type: CAPILLARY Comment: Test performed by: [id number] Meter #: [id number] Ordering Provider: FRANCK TURNER Report Released Date/Time: Sep 09, 2024 12:33 PM Reporting Lab: [address] [address] Performing Lab: [address] [address] GLUCOSE-HAND MONITOR 116 mg/dL H 71-99 Sep 09, 2024 06:07 AM [facility] GLUCOSE-HAND MONITOR CAPILLARY Specime n Type: CAPILLARY Comment: Test performed by: [id number] Meter #: [id number] Ordering Provider: FRANCK TURNER Report Released Date/Time: Sep 09, 2024 08:17 AM Reporting Lab: [address] [address] Performing Lab: [address] [address] GLUCOSE-HAND MONITOR 112 mg/dL H 71-99 Sep 08, 2024 09:13 PM [facility] GLUCOSE-HAND MONITOR CAPILLARY Specime n Type: CAPILLARY Comment: Test performed by: [id number] Meter #: [id number] Ordering Provider: FRANCK TURNER Report Released Date/Time: Sep 08, 2024 09:31 PM Reporting Lab: [address] [address] Performing Lab: [address] [address] GLUCOSE-HAND MONITOR 107 mg/dL H 71-99 Sep 08, 2024 03:49 PM [facility] GLUCOSE-HAND MONITOR CAPILLARY Specime n Type: CAPILLARY Comment: AAMIR RN notified Test performed by: [id number] Meter #: [id number] Ordering Provider: FRANCK TURNER Report Released Date/Time: Sep 08, 2024 04:33 PM Reporting Lab: [address] [address] Performing Lab: [address] [address] GLUCOSE-HAND MONITOR 162 mg/dL H Sep 08, 2024 11:43 AM [facility] GLUCOSE-HAND MONITOR CAPILLARY Specime n Type: CAPILLARY Comment: AAMIR RN notified Test performed by: [id number] Meter #: [id number] Ordering Provider: FRANCK TURNER Report Released Date/Time: Sep 08, 2024 12:03 PM Reporting Lab: [address] [address] Performing Lab: [address] GLUCOSE-HAND MONITOR 133 mg/dL H Sep 08, 2024 06:13 AM [facility] GLUCOSE-HAND MONITOR CAPILLARY Specime n Type: CAPILLARY Comment: Test performed by: [id number] Meter #: [id number] Ordering Provider: FRANCK TURNER Report Released Date/Time: Sep 08, 2024 06:46 AM Reporting Lab: [address] [address] Performing Lab: [address] [address] GLUCOSE-HAND MONITOR 104 mg/dL H Sep 07, 2024 07:59 PM [facility] GLUCOSE-HAND MONITOR CAPILLARY Specime n Type: CAPILLARY Comment: Test performed by: [id number] Meter #: [id number] Ordering Provider: FRANCK TURNER Report Released Date/Time: Sep 07, 2024 09:05 PM Reporting Lab: [address] [address] Performing Lab: [address] [address] GLUCOSE-HAND MONITOR 107 mg/dL H Sep 07, 2024 04:39 PM [facility] GLUCOSE-HAND MONITOR CAPILLARY Specime n Type: CAPILLARY Comment: Test performed by: [id number] Meter #: [id number] Ordering Provider: FRANCK TURNER Report Released Date/Time: Sep 07, 2024 05:09 PM Reporting Lab: [address] [address] Performing Lab: [address] [address] GLUCOSE-HAND MONITOR 105 mg/dL H -Sep 07, 2024 11:41 AM [facility] GLUCOSE-HAND MONITOR CAPILLARY Specime n Type: CAPILLARY Comment: Test performed by: [id number] Meter #: [id number] Ordering Provider: FRANCK TURNER Report Released Date/Time: Sep 07, 2024 12:41 PM Reporting Lab: [address] [address] Performing Lab: [address] [address] GLUCOSE-HAND MONITOR 144 mg/dL H Sep 07, 2024 05:56 AM [facility] GLUCOSE-HAND MONITOR CAPILLARY Specime n Type: CAPILLARY Comment: Test performed by: [id number] Meter #: [id number] Ordering Provider: FRANCK TURNER Report Released Date/Time: Sep 07, 2024 06:31 AM Reporting Lab: [address] [address] Performing Lab: [address] [address] GLUCOSE-HAND MONITOR 96 mg/dL -Sep 06, 2024 08:10 PM [facility] GLUCOSE-HAND MONITOR CAPILLARY Specime n Type: CAPILLARY Comment: Test performed by: [id number] Meter #: [id number] Ordering Provider: FRANCK TURNER Report Released Date/Time: Sep 06, 2024 08:52 PM Reporting Lab: [address] [address] Performing Lab: [address] [address] GLUCOSE-HAND MONITOR 124 mg/dL H Sep 06, 2024 04:27 PM [facility] GLUCOSE-HAND MONITOR CAPILLARY Specime n Type: CAPILLARY Comment: Test performed by: [id number] Meter #: [id number] Ordering Provider: FRANCK TURNER Report Released Date/Time: Sep 06, 2024 05:15 PM Reporting Lab: [address] [address] Performing Lab: [address] [address] GLUCOSE-HAND MONITOR 107 mg/dL H Sep 06, 2024 12:12 PM [facility] GLUCOSE-HAND MONITOR CAPILLARY Specime n Type: CAPILLARY Comment: Test performed by: [id number] Meter #: [id number] Ordering Provider: FRANCK TURNER Report Released Date/Time: Sep 06, 2024 12:29 PM Reporting Lab: [address] [address] Performing Lab: [address] [address] GLUCOSE-HAND MONITOR 181 mg/dL H Sep 06, 2024 06:13 AM [facility] GLUCOSE-HAND MONITOR CAPILLARY Specime n Type: CAPILLARY Comment: Test performed by: [id number] Meter #: [id number] Ordering Provider: FRANCK TURNER Report Released Date/Time: Sep 06, 2024 06:36 AM Reporting Lab: [address] [address] Performing Lab: [address] [address] GLUCOSE-HAND MONITOR 102 mg/dL H Sep 05, 2024 08:47 PM [facility] GLUCOSE-HAND MONITOR CAPILLARY Specime n Type: CAPILLARY Comment: Test performed by: [id number] Meter #: [id number] Ordering Provider: FRANCK TURNER Report Released Date/Time: Sep 06, 2024 02:13 AM Reporting Lab: [address] [address] Performing Lab: [address] [address] GLUCOSE-HAND MONITOR 103 mg/dL H Sep 05, 2024 04:40 PM [facility] GLUCOSE-HAND MONITOR CAPILLARY Specime n Type: CAPILLARY Comment: AAMIR RN notified Test performed by: [id number] Meter #: [id number] Ordering Provider: FRANCK TURNER Report Released Date/Time: Sep 05, 2024 05:11 PM Reporting Lab: [address] [address] Performing Lab: [address] [address] GLUCOSE-HAND MONITOR 113 mg/dL H Sep 05, 2024 12:06 PM [facility] GLUCOSE-HAND MONITOR CAPILLARY Specime n Type: CAPILLARY Comment: Test performed by: [id number] Meter #: [id number] Ordering Provider: FRANCK TURNER Report Released Date/Time: Sep 05, 2024 12:23 PM Reporting Lab: [address] [address] Performing Lab: [address] [address] GLUCOSE-HAND MONITOR 115 mg/dL H Sep 05, 2024 06:26 AM [facility] GLUCOSE-HAND MONITOR CAPILLARY Specime n Type: CAPILLARY Comment: AAMIR Correction Dose Test performed by: [id number] Meter #: [id number] Ordering Provider: FRANCK TURNER Report Released Date/Time: Sep 05, 2024 06:43 AM Reporting Lab: [address] [address] Performing Lab: [address] [address] GLUCOSE-HAND MONITOR 111 mg/dL H Sep 04, 2024 08:59 PM [facility] GLUCOSE-HAND MONITOR CAPILLARY Specime n Type: CAPILLARY Comment: AAMIR RN notified Test performed by: [id number] Meter #: [id number] Ordering Provider: FRANCK TURNER Report Released Date/Time: Sep 04, 2024 09:36 PM Reporting Lab: [address] [address] Performing Lab: [address] [address] GLUCOSE-HAND MONITOR 123 mg/dL H Sep 04, 2024 04:41 PM [facility] GLUCOSE-HAND MONITOR CAPILLARY Specime n Type: CAPILLARY Comment: AAMIR RN notified Test performed by: [id number] Meter #: [id number] Ordering Provider: FRANCK TURNER Report Released Date/Time: Sep 04, 2024 05:03 PM Reporting Lab: [place] [address] Performing Lab: [place] [address] GLUCOSE-HAND MONITOR 118 mg/dL H 71-99 Sep 04, 2024 12:36 PM [facility] GLUCOSE-HAND MONITOR CAPILLARY Specime n Type: CAPILLARY Comment: AAMIR RN notified Test performed by: [id number] Meter #: [id number] Ordering Provider: FRANCK TURNER Report Released Date/Time: Sep 04, 2024 12:53 PM Reporting Lab: [place] [address] Performing Lab: [place] [address] GLUCOSE-HAND MONITOR 129 mg/dL H Sep 04, 2024 12:03 PM [facility] RESPIRATORY VIRUS PANEL (BIOFIRE) NASOPHARYN X Specimen Type: NASOPHARYNX Comment: ~For Test: RESPIRATORY VIRUS PANEL (BIOFIRE) ~ORDER READ BACK TO: FRANCK TURNER 09/04/24@11:30 Ordering Provider: FRANCK TURNER Report Released Date/Time: Sep 04, 2024 11:33 AM Reporting Lab: [place] [id number] Performing Lab: [place] [id number] ADENOVIRUS (BIOFIRE) Not Detected -Not D etected [...] -Not Detected Sep 04, 2024 06:55 AM [facility] MAGNESIUM PLASMA Specimen Type: PLASM A Comment: [...] Sep 03, 2024 11:10 AM Reporting Lab: [facility] [address] [facility] [address] Performing Lab: [address] [address] MAGNESIUM 1.8 mg/dL 1.6-2.6 Sep 04, 2024 06:55 AM [facility] PANEL 1 PLASMA Specimen Type: PLASM A [...] Sep 03, 2024 11:10 AM Reporting Lab: [address] [address] Performing Lab: [address] [address] CREATININE 0.75 mg/dL 0.72-1.25 UREA NITROGEN 13 mg/dL 9-25 GLUCOSE 105 mg/dL H 74-100 SODIUM 128 mmol/L L 136-145 POTASSIUM 3.9 mmol/L 3.5-5.1 CHLORIDE 99 mmol/L 98-107 CO2 21 mmol/L L 22-29 CALCIUM 8.0 mg/dL L 8.4-10.2 ANION GAP 8 meq/L 3-19 eGFR (CKD-EPI) >90 Sep 04, 2024 06:02 AM [facility] GLUCOSE-HAND MONITOR CAPILLARY Specime n Type: CAPILLARY Comment: Test performed by: [id number] Meter #: [id number] Ordering Provider: FRANCK TURNER Report Released Date/Time: Sep 04, 2024 06:28 AM Reporting Lab: [address] [address] Performing Lab: [address] [address] GLUCOSE-HAND MONITOR 114 mg/dL H 71-99 Sep 03, 2024 05:19 PM [facility] GLUCOSE-HAND MONITOR CAPILLARY Specime n Type: CAPILLARY Comment: Test performed by: [id number] Meter #: [id number] Ordering Provider: FRANCK TURNER Report Released Date/Time: Sep 03, 2024 05:37 PM Reporting Lab: [address] [address] Performing Lab: [address] [address] GLUCOSE-HAND MONITOR 124 mg/dL H 71-99 Sep 03, 2024 04:41 PM [facility] GLUCOSE-HAND MONITOR CAPILLARY Specime n Type: CAPILLARY Comment: Test performed by: [id number] Meter #: [id number] Ordering Provider: FRANCK TURNER Report Released Date/Time: Sep 03, 2024 06:09 PM Reporting Lab: [address] [address] Performing Lab: [address] [address] GLUCOSE-HAND MONITOR 112 mg/dL H 71-99 Sep 03, 2024 01:35 PM [facility] CREATININE URINE Specimen Type: URINE Comment: ~Altered mental status with no identifiable cause Ordering Provider: FRANCK TURNER Report Released Date/Time: Sep 02, 2024 04:44 PM Reporting Lab: [address] [address] Performing Lab: [address] [address] CREATININE 150.9 mg/dL Sep 03, 2024 01:35 PM [facility] URINE LYTES URINE Specimen Type : URINE Comment: ~Altered mental status with no identifiable cause Ordering Provider: FRANCK TURNER Report Released Date/Time: Sep 02, 2024 04:44 PM Reporting Lab: [address] [address] Performing Lab: [address] [address] SODIUM 130 mmol/L POTASSIUM 47.6 mmol/L CHLORIDE 137 mmol/L Sep 03, 2024 01:35 PM [facility] URINALYSIS WITH REFLEX TO CULTURE URINE Specimen Type: URINE Comment: ~Altered mental status with no identifiable cause Ordering Provider: FRANCK TURNER Report Released Date/Time: Sep 02, 2024 04:44 PM Reporting Lab: [address] [address] Performing Lab: [address] [address] URINE COLOR Yellow Colorless-Yellow APPEARANCE CLOUDY H [...] H 0-28 Sep 03, 2024 01:35 PM [facility] UREA NITROGEN URINE Specimen Type : URINE Comment: ~Altered mental status with no identifiable cause Ordering Provider: FRANCK TURNER Report Released Date/Time: Sep 02, 2024 04:44 PM Reporting Lab: [place] [id number] Performing Lab: [place] [id number] UREA NITROGEN 320 mg/dL Sep 03, 2024 01:35 PM [facility] OSMOLALITY URINE Specimen Type: URINE Comment: ~Altered mental status with no identifiable cause Ordering Provider: FRANCK TURNER Report Released Date/Time: Sep 02, 2024 04:44 PM Reporting Lab: [address] [address] Performing Lab: [place] [id number] OSMOLALITY 522 mosm/kg 38-1400 Sep 03, 2024 11:58 AM [facility] GLUCOSE-HAND MONITOR CAPILLARY Specime n Type: CAPILLARY Comment: AAMIR RN notified Test performed by: [id number] Meter #: [id number] Ordering Provider: FRANCK TURNER Report Released Date/Time: Sep 03, 2024 12:15 PM Reporting Lab: [place] [id number] Performing Lab: [place] [id number] GLUCOSE-HAND MONITOR 135 mg/dL H 71-99 Sep 03, 2024 07:09 AM [facility] GLUCOSE-HAND MONITOR CAPILLARY Specime n Type: CAPILLARY Comment: Test performed by: [id number] Meter #: [id number] Ordering Provider: FRANCK TURNER Report Released Date/Time: Sep 03, 2024 07:26 AM Reporting Lab: [address] [address] Performing Lab: [address] [address] GLUCOSE-HAND MONITOR 120 mg/dL H 71-99 Sep 03, 2024 07:05 AM [facility] CBC/PLT BLOOD Specimen Type: BLOOD No comment entered. Ordering Provider: FRANCK TURNER Report Released Date/Time: Sep 02, 2024 04:29 PM Reporting Lab: [address] [address] Performing Lab: [place] [id number] WBC 6.9 10*3/uL 5.0-10.0 RBC 3.48 10*6/uL L 4.6-6.2 HGB 9.5 g/dL L 14.0-18.0 HCT 29.1 L 42.0-52.0 MCV 83.6 fL 80.0-94.0 MCH 27.3 pg 27.0-31.0 MCHC 32.6 g/dL 32.0-36.0 PLT 258 10*3/uL 150-450 MPV 10.3 fL 9.0-13.1 RDW 14.8 11.0-16.0 NRBC 0.0 0.0-0.0 Sep 03, 2024 07:05 AM [facility] MAGNESIUM PLASMA Specimen Type: PLASM A Comment: [...] Sep 02, 2024 04:29 PM Reporting Lab: [address] [address] Performing Lab: [address] [address] MAGNESIUM 1.7 mg/dL 1.6-2.6 Sep 03, 2024 07:05 AM [facility] PANEL 1 PLASMA Specimen Type: PLASM A [...] Sep 02, 2024 04:29 PM Reporting Lab: [address] [address] Performing Lab: [address] [address] CREATININE 0.82 mg/dL 0.72-1.25 UREA NITROGEN 12 mg/dL 9-25 GLUCOSE 109 mg/dL H 74-100 SODIUM 129 mmol/L L 136-145 POTASSIUM 4.2 mmol/L 3.5-5.1 CHLORIDE 99 mmol/L 98-107 CO2 21 mmol/L L 22-29 CALCIUM 8.1 mg/dL L 8.4-10.2 ANION GAP 9 meq/L 3-19 eGFR (CKD-EPI) 90 Sep 03, 2024 07:05 AM [facility] GLYCOHEMOGLOBIN BLOOD Specimen Type: BLOOD Comment: Prediabetes: 5.7%-6.4% Diabetes: >= 6.5% [facility] A[facility] interpretation: Glycemic [...] 8.73 and 9.27. Ref: https://ngsp.org/CAPdata.asp. The in-house [employer] D-100 analyzer has a historical CV <= 2%. Contact the laboratory for further performance characteristics of this assay. Ordering Provider: FRANCK TURNER Report Released Date/Time: Sep 02, 2024 04:29 PM Reporting Lab: [place] [address] Performing Lab: [place] [id number] GLYCOHEMOGLOBIN 5.6 4.4-5.6 Sep 03, 2024 07:05 AM [facility] OSMOLALITY SERUM Specimen Type: SERUM No comment entered. Ordering Provider: FRANCK TURNER Report Released Date/Time: Sep 02, 2024 04:44 PM Reporting Lab: [place] [id number] Performing Lab: [place] [id number] OSMOLALITY 271 mosm/kg L 280-300 Sep 02, 2024 08:15 PM [facility] GLUCOSE-HAND MONITOR CAPILLARY Specime n Type: CAPILLARY Comment: AAMRI DEXTER notified Test performed by: [id number] Meter #: [id number] Ordering Provider: FRANCK UTRNER Report Released Date/Time: Sep 02, 2024 08:57 PM Reporting Lab: [address] [address] Performing Lab: [place] [id number] GLUCOSE-HAND MONITOR 126 mg/dL H 71-99 Sep 02, 2024 06:10 PM [facility] MRSA SURVL NARES DNA NARES Specime n [...] Sep 02, 2024 05:12 PM Reporting Lab: [address] [address] Performing Lab: [place] [id number] MRSA SURVL NARES DNA Negative Negative Sep 02, 2024 05:36 PM [facility] GLUCOSE-HAND MONITOR CAPILLARY Specime n Type: CAPILLARY Comment: Test performed by: [id number] Meter #: [id number] Ordering Provider: FRANCK TURNER Report Released Date/Time: Sep 02, 2024 05:53 PM Reporting Lab: [address] [address] Performing Lab: [address] [address] GLUCOSE-HAND MONITOR 127 mg/dL H 71-99 Aug 29, 2024 10:04 PM [facility] URINALYSIS WITH REFLEX TO CULTURE URINE Specimen Type: URINE Comment: ~For Test: URINALYSIS WITH REFLEX TO CULTURE ~REORDER Ordering Provider: FELISA COLE Report Released Date/Time: Aug 29, 2024 09:36 PM Reporting Lab: [address] [address] Performing Lab: [address] [address] URINE COLOR Yellow Colorless-Yellow APPEARANCE Clear Clear [...] /[LPF] 0-28 Aug 29, 2024 08:32 PM [facility] HIGH SENSITIVITY TROPONIN I PLASMA Specimen Ty [...] Aug 29, 2024 07:55 PM Reporting Lab: [place] [id number] [facility] [address] Performing Lab: [address] [address] HIGH SENSITIVITY TROPONIN I 7 4-35 Aug 29, 2024 08:32 PM [facility] CBC/PLT BLOOD Specimen Type: BLOOD No comment entered. Ordering Provider: FELISA COLE Report Released Date/Time: Aug 29, 2024 07:55 PM Reporting Lab: [facility] [address] [facility] [address] Performing Lab: [facility] [address] [facility] [address] WBC 11.2 10*3/uL H 5.0-10.0 RBC 3.97 10*6/uL L 4.6-6.2 HGB 10.9 g/dL L 14.0-18.0 HCT 33.5 L 42.0-52.0 MCV 84.4 fL 80.0-94.0 MCH 27.5 pg 27.0-31.0 MCHC 32.5 g/dL 32.0-36.0 PLT 230 10*3/uL 150-450 MPV 10.2 fL 9.0-13.1 RDW 14.6 11.0-16.0 NRBC 0.0 0.0-0.0 Aug 29, 2024 08:32 PM [facility] PANEL 5 PLASMA Specimen Type: PLASM A [...] Aug 29, 2024 07:55 PM Reporting Lab: [address] [address] Performing Lab: [address] [address] CREATININE 0.85 mg/dL 0.72-1.25 UREA NITROGEN 15 [...] PHOS 97 U/L 40-150 eGFR (CKD-EPI) 89 Vital Signs: All taken on the encounter date This section contains inpatient and outpatient Vital Signs collected on the date of the Encounter. Date/Time Temperature Pulse Blood Pressure Respiratory Rate SP02 Pain Height Weight Body Mass Index Source Aug 29, 2024 11:00 PM 81 159/73 21 93 [facility] Aug 29, 2024 07:54 PM 99.4 85 174/79 16 92 5 [facility] Advance Directives: All historical and current Section Date Range: From patient's date of to the date document was created. This section includes ALL of a patient's completed or amended [place] Advance and Rescinded Directives. The entries below indicate that a directive exists for the patient, but an actual copy is not included with this document. The data comes from all [place] facilities. Date Advance Directives Provider Source Mar 08, 2024 ADVANCE DIRECTIVE DISCUSSION [facility]IN [facility] Radiology Reports: +/- 30 days of the [...] the Encounter. The data comes from all [place] treatment facilities. Date/Time Radiology Report Provider Source Sep 06, 2024 01:40 PM MRI BRAIN W & W/O: LUIS MANUEL PERDOMO [id number] -[id number] M Exm Date: SEP 06, 2024@13:40 Req Phys: FRANCK TURNER [facility] Loc: 5-MED/TEL/09-06-2024@19:09 Img Loc: [facility] Service: [place] [address] (Case [id number] COMPLETE) MRI BRAIN W & W/O (MRI Detailed) CPT:18559 Contrast Media : Gadolinium Reason for Study: SEE CLINICAL HISTORY Pharmaceutical: GADOTERIDOL 279.3MG/ML 20ML INJ, 19ml Clinical History: MRI Screening (Required): IMPLANTED DEVICE DOCUMENTATION IMPLANTED DEVICE DOCUMENTATION NOT FOUND Does the Irvona have any Cardiac Implants? None Does the Irvona have any implanted stimulators? None Does the Irvona have cochlear implants? No Does the Irvona have Cerebral aneurysm clip(s)? I don't know Does the Irvona have any shrapnel? I don't know If yes, where in your body? Please list other implants not listed above: MRI table has a weight limit of 551 lbs. Irvona's Weight: *212 lb [96.16 kg] (09/04/2024 05:19) Is this patient claustrophobic?: No REASON FOR EXAM:MULTIPLE SCLEROSIS (indicate suspected or established) PERTINENT PATIENT HISTORY: MS c/f for flare Risk factors for GADOLINIUM NEPHROGENIC SYSTEMIC SCLEROSIS: Report Status: Verified Date Reported: SEP 06, 2024 Date Verified: SEP 06, 2024 Adhesive Primer E-Sig: Report: MRI brain without and with [...] SIGNIFICANT ABNORMALITY, ATTN NEEDED Primary Interpreting Staff: ARCENOI LEYVA, Staff Radiologist Verified by hotel reservation agent for ARCENIO LEYVA /ARCENOI AVILA[facility] Sep 06, 2024 01:40 PM MRI C SPINE W & W/ O CONTRAST(FURTHER SEQUENCES): LUIS MANUEL PERDOMO [id number] M Exm Date: SEP 06, 2024@13:40 Req Phys: FRANCK TURNER Pat Loc: 5-MED/TEL/09-07-2024@06:42 Img Loc: [facility] Service: MEDICAL SERVICE [place] [id number] (Case [id number] COMPLETE) MRI C SPINE W & W/O CONTRAST(FURT(MRI Detailed) CPT:85974 Contrast Media : Gadolinium Reason for Study: SEE CLINICAL HISTORY Pharmaceutical: GADOTERIDOL 279.3MG/ML 20ML INJ, 19ml Clinical History: STATUS OF PLAIN FILMS:Not performed (Provide justification for MR W/O prior plain films below.) MRI for MS MRI Screening (Required): IMPLANTED DEVICE DOCUMENTATION IMPLANTED DEVICE DOCUMENTATION NOT FOUND Does the have any Cardiac Implants? None Does the have any implanted stimulators? None Does the Irvona have cochlear implants? No Does the have Cerebral aneurysm clip(s)? I don't know [...] 07, 2024 Date Verified: SEP 07, 2024 Adhesive Primer E-Sig: Report: EXAMINATION: MRI OF THE CERVICAL [...] Interpreting Staff: HUANG TAI, Radiologist Verified by hotel reservation agent for HUANG TAI /HUANG WHEATLEY-Sav [facility] Sep 03, 2024 10:45 AM CHEST SINGLE(1) EW: LUIS MANUEL PERDOMO [id number] -[id number] M Exm Date: SEP 03, 2024@10:45 Req Phys: FRANCK TURNER [facility] Loc: 5-MED/TEL/09-03-2024@10:56 Img Loc: CDD RADIOLOGY Service: [place] [address] (Case [id number] COMPLETE)CHEST SINGLE(1) VIEW (RAD Detailed) CPT:16013 Proc Modifiers : PORTABLE EXAM Reason for Study: Eval volume status Clinical History: Report Status: Verified Date Reported: SEP 03, 2024 Date Verified: SEP 03, 2024 Adhesive Primer E-Sig: Report: EXAMINATION: SINGLE VIEW CHEST CLINICAL [...] Interpreting Staff: HUANG TAI, Radiologist Verified by hotel reservation agent for HUANG TAI /HUANG WHEATLEY-CDD [facility] Aug 29, 2024 08:[address] HEAD W/O CONT: LUIS MANUEL PERDOMO [id number] -1945 M Exm Date: AUG 29, 2024@20:28 Req Phys: FELISA COLE Loc: ED/4P-12A (Req'g Loc) Img Loc: CT SCAN Service: [place] [address] (Case [id number] COMPLETE) CT HEAD W/O CONT (CT Detailed) CPT:62909 Reason for Study: SEE CLINICAL HISTORY Clinical History: REASON FOR SEND OUT: ATTENDING PHYSICIAN NAME: New transient neurological s/s - suspected TIA HISTORY/REASON FOR EXAM: confusion Report Status: Verified Date Reported: AUG 29, 2024 Date Verified: AUG 29, 2024 Adhesive Primer E-Sig: Report: HISTORY confusion COMPARISON No prior [...] Staff: ABDIRAHMAN CROW, Staff Physician Verified by hotel reservation agent for ABDIRAHMAN CROW /ABDIRAHMAN ROJAS-D [facility] Pathology Reports: +/- 30 days of [...] the Encounter. The data comes from all [place] treatment facilities. Date/Time Pathology Report Provider Source Sep 03, 2024 01:35 PM LR MICROBIOLOGY RE PORT: Reporting Lab: [facility] [CLIA# [id number]] [address] [place] [id number] Accession [UID]: [id number] [[id number]] Received: Sep 03, 2024@14:02 Collection sample: URINE, [...] Performing Laboratory: Bacteriology Report Performed By: [facility] [CLIA# [id number]] [address] [place] [id number] MAGDY CALABRESE-CDD [facility] Sep 02, 2024 06:00 PM LR MICROBIOLOGY RE PORT: Reporting Lab: [facility] [CLIA# [id number]] [address] [place], [place] [id number] Accession [UID]: [id number] [[id number]] Received: Sep 02, 2024@18:07 Collection sample: BLD CULTURE BOTTLES Collection date: Sep 02, 2024 18:00 Site/Specimen: BLOOD Provider: RFANCK TURNER Comment on specimen: L HAND Test(s) ordered: CULTURE, BLOOD................ completed: Sep 08, 2024 * BACTERIOLOGY FINAL REPORT => Sep 08, 2024 08:25 TECH CODE: [id number] Bacteriology Remark(s): Blood culture status=NO GROWTH (unless notified otherwise) 09/03/2024 AEROBIC: NO GROWTH ANAEROBIC: NO GROWTH =--=--=--=--=--=--=--=--=--=-- =--=--=--=--=--=--=--=--=--=-- =--=--=--=--=--=-- Performing Laboratory: Bacteriology Report Performed By: [facility] [CLIA# [id number]] [address] [place] [address] MAGDY CALABRESE [facility] Aug 29, 2024 10:18 PM LR MICROBIOLOGY RE PORT: Reporting Lab: [facility] [CLIA# [id number]] [address] [place] [address] Accession [UID]: [id number] [[id number]] Received: Aug 29, 2024@22:18 Collection sample: URINE, CLEAN CATCH Collection date: Aug 29, 2024 22:18 Site/Specimen: URINE Provider: FELISA COLE Test(s) ordered: CULTURE, URINE................ completed: Aug 31, 2024 09:51 * BACTERIOLOGY FINAL REPORT => Aug 31, 2024 09:51 TECH CODE: [id number] Bacteriology Remark(s): NO GROWTH 08/30/2024 <10,000 CFU/ML. 08/31/2024 =--=--=--=--=--=--=--=--=--=-- =--=--=--=--=--=--=--=--=--=-- =--=--=--=--=--=-- Performing Laboratory: Bacteriology Report Performed By: [facility] [CLIA# [id number]] [address] [place] [address] MAGDY CALABRESE [facility] Encounter Notes: All associated encounter notes This section contains the clinical notes associated to the Encounter. Date/Time Encounter Note(s) Provider Source Sep 02, 2024 03:48 PM NURSING ADMISSION EVALUATION NOTE: LOCAL TITLE: ED DIRECT ADMISSION ASSESSMENT STANDARD TITLE: NURSING ADMISSION EVALUATION NOTE DATE OF NOTE: SEP 02, 2024@15:48 ENTRY DATE: SEP 02, 2024@15:48:16 AUTHOR: JENNIFER DIOR EXP COSIGNER: URGENCY: STATUS: COMPLETED Level of Consciousness: Alert, Responds to Verbal Commands Oxygen Use: Yes 2L Vitals: Blood Pressure: 125/58 Heart Rate: 91 Respiratory Rate: 18 1. Are 2 of 3 changes present since vitals recorded in the interfacility transfer note, systolic BP decreased by 20, HR increased by 20, or respiratory rate increased by 10? -No 2. Is there a new change in level of consciousness or increase in oxygen requirement of greater than 6L from vitals recorded in interfacility transfer note? -No -Zeke wire charger Primary Nurse notified that patient is in route. Irvona meets criteria to proceed to designated bed assignment per Direct Admission Algorithm. /rosette/ JENNIFER DIOR RN Signed: 09/02/2024 15:49 [facility] Aug 29, 2024 08:44 PM RADIOLOGY EDUCATIO N NOTE: LOCAL TITLE: Radiology Patient Education STANDARD TITLE: RADIOLOGY EDUCATION NOTE DATE OF NOTE: AUG 29, 2024@20:44 ENTRY DATE: AUG 29, 2024@20:44:23 AUTHOR: MERCEDES HENRANDEZ EXP COSIGNER: URGENCY: STATUS: COMPLETED Time out to ensure correct patient and procedure was performed using the following identifiers: *Select at least TWO identifiers* Full patient name as stated by patient and compared to paper CPRS order., Full SS# as stated by patient and compared to paper CPRS order., Full as stated by patient and compared to paper CPRS order. The Radiology exam to be performed (including whether or not IV contrast was to be used) was confirmed. Yes HAS Please add patient to X-RAY/CT1/NC schedule ct head w/o contrast completed /rosette/ MERCEDES HERNANDEZ CT BOTTOM PRECIPITATOR OPERATOR Signed: 08/29/2024 20:44 Receipt Acknowledged By: 08/30/2024 07:35 /rosette/ Rosemarie Aguilar Advanced Floral Designer Salesperson MERCEDES HERNANDEZ-CDD [facility] Aug 29, 2024 07:58 PM EMERGENCY DEPT NOT E: LOCATION: ED/[facility] VISIT DATE: AUG 29, 2024@19:38 LOCAL TITLE: EMERGENCY DEPT NURSING ASSESSMENT CHILD ID NOTE STANDARD TITLE: EMERGENCY DEPT NOTE DATE OF NOTE: AUG 29, 2024@19:58 ENTRY DATE: AUG 29, 2024@19:58:54 AUTHOR: ALEENA LINDQUIST EXP COSIGNER: URGENCY: STATUS: COMPLETED ASSESSMENT: PAIN: Do you have pain now? Yes Intensity: Severity Scale (5) Location: neck Chronic (over 3 months) How long? Constant, Ache PAST MEDICAL HISTORY: Active problems - Computerized Problem List is the source for the followin. Gastroesophageal reflux disease without esophagitis 2. Constipation 3. Multiple sclerosis 4. Age related macular degeneration 5. Closed fracture of shaft of right fibula 6. Incontinence 7. Type 2 diabetes mellitus 8. Essential hypertension 9. Hyperlipidemia 10. Carcinoma of prostate 11. Pain of right knee joint Transfer Patients If outpatient medication list below is NOT current. See chart/nursing transfer note, provider H&P, or remote data for current list. Medication List Current: YES NON-VA/Herbal Vitamins/Medications: No change in CPRS documentation Medicine/Supplies Qty Last Filled 1) UNDERPAD,BED [id number] TRANQUILITY-2710: USE 280 AUGUST 02, 2024 UNDERPAD DIRECTED THREE TIMES A DAY NEEDED 2) GLOVE VINYL MEDIUM PWDR-FREE NONSTERILE: USE GLOVE 300 2024 DIRECTED FOUR TIMES A DAY CLEANING 3) BRIEF,TRANQ ALEX OVERNITE XL#2117 PULLUP: USE 1 168 AUGUST 02, 2024 BRIEF DIRECTED THREE TIMES A DAY FOR INCONTINENCE 4) CLOTRIMAZOLE 1% TOP CREAM: APPLY SMALL AMOUNT TO 60 MAY 19, 2024 AFFECTED AREA THREE TIMES A DAY NEEDED FOR 5) DICLOFENAC NA 1% TOP GEL: APPLY 2 GRAM STRIP TO 200 MAY 19, 2024 AFFECTED AREA EVERY 6 HOURS NEEDED FOR PAIN 6) HYDROPHILIC (EQV EUCERIN) TOP CREAM: APPLY SMALL 454 MAY 19, 2024 AMOUNT TO AFFECTED AREA NEEDED FOR DRY SKIN 7) IPRATROPIUM BR 0.03% NASAL SPRAY: SPRAY 1 SPRAY IN 30 MAY 19, 2024 NOSE WITH MEALS FOR NASAL ALLERGIES Active Non-VA Meds = 1) BISOPROLOL 5MG MOUTH DAILY 2) GABAPENTIN 100MG MOUTH FOUR TIMES A DAY 3) ATORVASTATIN 20MG MOUTH AT BEDTIME 4) FAMOTIDINE (famOTidine) 20MG MOUTH TWICE A DAY NEEDED 5) METFORMIN 500MG MOUTH DAILY 6) LEUPROLIDE (ELIGARD 6 MONTH) (HAZARDOUS) 45MG (1 DOSE) UNDER THE SKIN ONCE 7) OCRELIZUMAB Dose Unknown INTO THE VEIN DIRECTED 8) ASPIRIN *RESTRICTED* 81MG MOUTH DAILY 9) METHENAMINE HIPPURATE 1GM MOUTH TWICE A DAY 10) SILODOSIN 8MG MOUTH DAILY 11) PRESERVISION AREDS VITAMIN 2 CAPSULES MOUTH DAILY 12) CHOLECALCIFEROL (VIT D3-400 UNIT) 10MCG 10MCG MOUTH DAILY 13) POLYETHYLENE GLYCOL 3350 17 GRAMS (ONE CAPFUL FILLED TO LINE) IN LIQUID MOUTH DAILY 14) PSYLLIUM CAPSULE 1 CAPSULE MOUTH DAILY 15) CHOLECALCIFEROL (VITAMIN D3) 50MCG MOUTH TWICE A DAY Reviewed current medications with patient/signficant other, patient/significant other reports patient taking ALL VA, Non VA & OTC medications as listed on CPRS medication tab outpatient section. YES: *Printed copy of medication list provided to patient and reviewed. No *Explained to the patient the importance of keeping providers updated on medication changes and to carrying an updated list of medication at all times in case of an emergency situation. Yes ETOH: NO Substance Use: NO LEARNING READINESS: Barriers/Limitations to Learning: No Barriers Interested in Learning About Your Health/Care? Yes, but does not identify a specific education need at present What are you interested in learning? With whom would you like us to share this information? Patient only FALL RISK: Have you fallen at home in the last 3 months? Yes Uses Assistive Device,i.e. FOCUSED ASSESSMENT: NEUROLOGICAL/EYE: Glascow Coma Scale: Eye Opening Response: 4-Spontaneous Motor Response: 6-Obeys Command Verbal Response: 4-Confused and converses Total EMV=14 SPEECH: Normal RESPIRATORY: Non-labored CV/CIRCULATORY: Warm, Dry COLOR: Scott CAP REFILL: PEDAL PULSES: Left Radial - Palpable Right Radial - Palpable Left Pedal - Right Pedal - INTEGUMENTARY: Medical Devices: Physical evidence of abuse or neglect? No Patient or Other verbally reports current abuse, neglect, or exploitation? No If yes: Provider notified? Yes If yes: Social service consult? Yes /rosette/ HI Soliman,piano professor RN Signed: 08/29/2024 20:02 --- Interdisciplinary Note --- << Interdisciplinary Note >> LOCATION: ED/[facility] VISIT DATE: AUG 29, 2024@19:38 LOCAL TITLE: EMERGENCY DEPT TRIAGE PARENT ID NOTE STANDARD TITLE: EMERGENCY DEPT TRIAGE NOTE DATE OF NOTE: AUG 29, 2024@19:55 ENTRY DATE: AUG 29, 2024@19:55:34 AUTHOR: ALEENA LINDQUIST EXP COSIGNER: URGENCY: STATUS: COMPLETED Emergency Department/Urgent Care Center Triage Patient age:79 Sex in chart: MALE Mode of Arrival: Private vehicle Mode of Mobility: * Wheelchair Chief Complaint: patient with chronic uti. patient with confusion, fevers, dysuria. Recent admission and treatment for uti and pneumonia engineering faculty Note (Subjective/Objective): nad Level of Consciousness (AVPU): Alert = Appears aware of and responsive to the environment on their own. Follows commands, opens eyes spontaneously, and tracks objects. Vital Signs: Vital signs previously recorded this visit: TEMP: Measurement DT TEMP F(C) 08/29/2024 19:54 99.4(37.4) PULSE: Measurement DT PULSE 08/29/2024 19:54 85 RESPIRATIONS: Measurement DT RESP 08/29/2024 19:54 16 PULSE OX: Measurement DT POx (L/MIN)(%) 08/29/2024 19:54 92 BLOOD PRESSURE: Measurement DT BP 08/29/2024 19:54 174/79 PAIN SCORE: Measurement DT PAIN 08/29/2024 19:54 5 69 in [175.3 cm] (02/06/2024 09:58) WEIGHT: No values within 24 hours Pain: DVPRS Scale Location: neck Defense and Veterans Pain Rating Scale (DVPRS): 5 Interrupts some activities Patient's acceptable pain goal: Suicide Screen: [place] Suicide Severity Rating Scale (C-SSRS) screener 1. [...] required due to responses to other questions. Emergency Severity Index (VERÓNICA) level: Level 3 Previously documented allergies: Patient has answered NKA Current Problems: Active problems - Computerized Problem List is the source for the followin. Gastroesophageal reflux disease without esophagitis 2. Constipation 3. Multiple sclerosis 4. Age related macular degeneration 5. Closed fracture of shaft of right fibula 6. Incontinence 7. Type 2 diabetes mellitus 8. Essential hypertension 9. Hyperlipidemia 10. Carcinoma of prostate 11. Pain of right knee joint /es/ HI Soliman,piano professor RN Signed: 08/29/2024 19:58 << Interdisciplinary Note - Cont. >> LOCAL TITLE: EMERGENCY DEPT NURSING ASSESSMENT CHILD ID NOTE STANDARD TITLE: EMERGENCY DEPT NOTE DATE OF NOTE: AUG 29, 2024@19:58 STATUS: COMPLETED ASSESSMENT: PAIN: Do you have pain now? Yes Intensity: Severity Scale (5) Location: neck Chronic (over 3 months) How long? Constant, Ache PAST MEDICAL HISTORY: Active problems - Computerized Problem List is the source for the followin. Gastroesophageal reflux disease without esophagitis 2. Constipation 3. Multiple sclerosis 4. Age related macular degeneration 5. Closed fracture of shaft of right fibula 6. Incontinence 7. Type 2 diabetes mellitus 8. Essential hypertension 9. Hyperlipidemia 10. Carcinoma of prostate 11. Pain of right knee joint Transfer Patients If outpatient medication list below is NOT current. See chart/nursing transfer note, provider H&P, or remote data for current list. Medication List Current: YES NON-VA/Herbal Vitamins/Medications: No change in CPRS documentation Medicine/Supplies Qty Last Filled 1) UNDERPAD,BED [id number] TRANQUILITY-2710: USE 280 AUGUST 02, 2024 UNDERPAD DIRECTED THREE TIMES A DAY NEEDED 2) GLOVE VINYL MEDIUM PWDR-FREE NONSTERILE: USE GLOVE 300 2024 DIRECTED FOUR TIMES A DAY CLEANING 3) BRIEF,TRANQ ALEX OVERNITE XL#2117 PULLUP: USE 1 168 AUGUST 02, 2024 BRIEF DIRECTED THREE TIMES A DAY FOR INCONTINENCE 4) CLOTRIMAZOLE 1% TOP CREAM: APPLY SMALL AMOUNT TO 60 MAY 19, 2024 AFFECTED AREA THREE TIMES A DAY NEEDED FOR 5) DICLOFENAC NA 1% TOP GEL: APPLY 2 GRAM STRIP TO 200 MAY 19, 2024 AFFECTED AREA EVERY 6 HOURS NEEDED FOR PAIN 6) HYDROPHILIC (EQV EUCERIN) TOP CREAM: APPLY SMALL 454 MAY 19, 2024 AMOUNT TO AFFECTED AREA NEEDED FOR DRY SKIN 7) IPRATROPIUM BR 0.03% NASAL SPRAY: SPRAY 1 SPRAY IN 30 MAY 19, 2024 NOSE WITH MEALS FOR NASAL ALLERGIES Active Non-VA Meds = 1) BISOPROLOL 5MG MOUTH DAILY 2) GABAPENTIN 100MG MOUTH FOUR TIMES A DAY 3) ATORVASTATIN 20MG MOUTH AT BEDTIME 4) FAMOTIDINE (famOTidine) 20MG MOUTH TWICE A DAY NEEDED 5) METFORMIN 500MG MOUTH DAILY 6) LEUPROLIDE (ELIGARD 6 MONTH) (HAZARDOUS) 45MG (1 DOSE) UNDER THE SKIN ONCE 7) OCRELIZUMAB Dose Unknown INTO THE VEIN DIRECTED 8) ASPIRIN *RESTRICTED* 81MG MOUTH DAILY 9) METHENAMINE HIPPURATE 1GM MOUTH TWICE A DAY 10) SILODOSIN 8MG MOUTH DAILY 11) PRESERVISION AREDS VITAMIN 2 CAPSULES MOUTH DAILY 12) CHOLECALCIFEROL (VIT D3-400 UNIT) 10MCG 10MCG MOUTH DAILY 13) POLYETHYLENE GLYCOL 3350 17 GRAMS (ONE CAPFUL FILLED TO LINE) IN LIQUID MOUTH DAILY 14) PSYLLIUM CAPSULE 1 CAPSULE MOUTH DAILY 15) CHOLECALCIFEROL (VITAMIN D3) 50MCG MOUTH TWICE A DAY Reviewed current medications with patient/signficant other, patient/significant other reports patient taking ALL VA, Non VA & OTC medications as listed on CPRS medication tab outpatient section. YES: *Printed copy of medication list provided to patient and reviewed. No *Explained to the patient the importance of keeping providers updated on medication changes and to carrying an updated list of medication at all times in case of an emergency situation. Yes ETOH: NO Substance Use: NO LEARNING READINESS: Barriers/Limitations to Learning: No Barriers Interested in Learning About Your Health/Care? Yes, but does not identify a specific education need at present What are you interested in learning? With whom would you like us to share this information? Patient only FALL RISK: Have you fallen at home in the last 3 months? Yes Uses Assistive Device,i.e. FOCUSED ASSESSMENT: NEUROLOGICAL/EYE: Glascow Coma Scale: Eye Opening Response: 4-Spontaneous Motor Response: 6-Obeys Command Verbal Response: 4-Confused and converses Total EMV=14 SPEECH: Normal RESPIRATORY: Non-labored CV/CIRCULATORY: Warm, Dry COLOR: Scott CAP REFILL: PEDAL PULSES: Left Radial - Palpable Right Radial - Palpable Left Pedal - Right Pedal - INTEGUMENTARY: Medical Devices: Physical evidence of abuse or neglect? No Patient or Other verbally reports current abuse, neglect, or exploitation? No If yes: Provider notified? Yes If yes: Social service consult? Yes /rosette/ HI Soliman,piano professor RN Signed: 08/29/2024 20:02 ALEENA LINDQUIST-VUD [facility] Aug 29, 2024 07:57 PM EMERGENCY DEPT NOT E: LOCAL TITLE: ED PHYSICIAN/SEAL DELIVERY VEHICLE OFFICER/PA NOTE STANDARD TITLE: EMERGENCY DEPT NOTE DATE OF NOTE: AUG 29, 2024@19:57 ENTRY DATE: AUG 29, 2024@19:57:18 AUTHOR: FELISA COLE COSIGNER: URGENCY: STATUS: COMPLETED TIME SEEN: 1955 CHIEF COMPLAINT: fatigue HISTORIAN: [X] Patient [ ] Spouse [ ] Son [ ] Daughter [ ] Mcc [ ] EMS [ ] Other: HPI: 79; WHITE; MALE pt here with fatigue for 3 weeks. pt with significant MS and is currently at rehab facility. pt with recent admission at outside hospital for uti per family. they state pt has been slow to improve. no fever, no soa, no chest or abd pain reported. no neuro defecits reported. ROS: [ ] Unable to fully assess due to: CONSTITUTIONAL: Fever [ ]Y [ ]N Chills [ ]Y [ ]N Fatigue [X]Y [ ]N Sweats [ ]Y [ ]N Other: SKIN: Rash [ ]Y [ ]N Bruising [ ]Y [ ]N Other: EYES: Diplopia [ ]Y [ ]N Change in vision [ ]Y [ ]N Other: ENT: Vertigo [ ]Y [ ]N Rhinorrhea [ ]Y [ ]N Sore throat [ ]Y [ ]N Other: RESPIRATORY: Cough [ ]Y [ ]N Short of breath [ ]Y [ ]N Hemoptysis [ ]Y [ ]N Other: CARDIAC: Chest pain [ ]Y [ ]N Palpitations [ ]Y [ ]N Pedal edema [ ]Y [ ]N Other: GASTROINTESTINAL: Nausea [ ]Y [ ]N Vomiting [ ]Y [ ]N Diarrhea [ ]Y [ ]N Abdominal Pain [ ]Y [ ]N Other: GENITOURINARY: Dysuria [ ]Y [ ]N Hematuria [ ]Y [ ]N Frequency [ ]Y [ ]N Other: MUSCULOSKELETAL: Arthralgias [ ]Y [ ]N Myalgias [ ]Y [ ]N Back pain [ ]Y [ ]N Other: ENDOCRINE: Heat/cold intol [ ]Y [ ]N Weight gain/loss [ ]Y [ ]N Other: NEUROLOGIC: Headache [ ]Y [ ]N Dizziness [ ]Y [ ]N Focal weakness [ ]Y [ ]N Incontinence [ ]Y [ ]N Confusion [ ]Y [ ]N Speech difficulty[ ]Y [ ]N Other: PSYCHIATRY: Depression [ ]Y [ ]N SI/HI [ ]Y [ ]N Other: PAST MEDICAL HX: Active problems - Computerized Problem List is the source for the followin. Gastroesophageal reflux disease without esophagitis 2. Constipation 3. Multiple sclerosis 4. Age related macular degeneration 5. Closed fracture of shaft of right fibula 6. Incontinence 7. Type 2 diabetes mellitus 8. Essential hypertension 9. Hyperlipidemia 10. Carcinoma of prostate 11. Pain of right knee joint ALLERGIES: Patient has answered NKA MEDICATION: Active Outpatient Medications (including Supplies): BRIEF,TRANQ ALEX OVERNITE XL#2117 PULLUP USE 1 BRIEF ACTIVE DIRECTED THREE TIMES A DAY Indication: FOR INCONTINENCE CLOTRIMAZOLE 1% TOP CREAM APPLY SMALL AMOUNT TO AFFECTED ACTIVE AREA THREE TIMES A DAY NEEDED APPLY TO GROIN RASH Indication: FOR FUNGAL INFECTION DICLOFENAC NA 1% TOP GEL APPLY 2 GRAM STRIP TO AFFECTED ACTIVE AREA EVERY 6 HOURS NEEDED APPLY TO RIGHT KNEE Indication: FOR PAIN GLOVE VINYL MEDIUM PWDR-FREE NONSTERILE USE GLOVE ACTIVE DIRECTED FOUR TIMES A DAY Indication: CLEANING HYDROPHILIC (EQV EUCERIN) TOP CREAM APPLY SMALL AMOUNT TO ACTIVE AFFECTED AREA NEEDED Indication: FOR DRY SKIN IPRATROPIUM BR 0.03% NASAL SPRAY SPRAY 1 SPRAY IN NOSE ACTIVE WITH MEALS Indication: FOR NASAL ALLERGIES UNDERPAD,BED [id number] TRANQUILITY-2710 USE UNDERPAD ACTIVE DIRECTED THREE TIMES [...] DAY Indication: FOR VITAMIN D SUPPLEMENT Non-VA FAMOTIDINE 20MG TAB 20MG MOUTH [...] 8MG MOUTH DAILY ACTIVE Indication: FOR PROSTRATE 22 Total Medications PERTINENT SURGERY/PROCEDURE: PERTINENT FAMILY HISTORY: PERTINENT SOCIAL HISTORY: PHYSICAL EXAM: VITALS: TEMP: Measurement DT TEMP F(C) 08/29/2024 19:54 99.4(37.4) BLOOD PRESSURE: Measurement DT BP 08/29/2024 19:54 174/79 PULSE: Measurement DT PULSE 08/29/2024 19:54 85 RESPIRATIONS: Measurement DT RESP 08/29/2024 19:54 16 PULSE OX: Measurement DT POx (L/MIN)(%) 08/29/2024 19:54 92 WEIGHT: No values within 24 hours CONSTITUTIONAL: [X] Reviewed today's triage vital signs [X] WD/WN [ ] Obese [X] NAD [ ] Other: EYES: [ ] Lids and conjunctival normal [X] PERRLA [ ] Other: ENT: [ ] TM/canal normal [X] External ear/nose normal [ ] Oropharynx pink/clear [ ] Other: NECK: [X] Supple [X] No JVD [ ] Thyroid normal [ ] Other: CARDIOVASCULAR: [X] RRR w/o murmur [X] No pedal edema [ ] Pedal pulses normal [ ] Other: RESPIRATORY: [X] Clear to auscultation [ ] BS equal [X] Normal respiratory effort [ ] Palpation of chest nontender [ ] Other: GASTROINTESTINAL: [X] Soft [X] Nontender [X] No peritoneal signs [ ] Normal BS [ ] No Hepatosplenomegaly [ ] Other: [ ] Rectal exam: GENITOURINARY: [ ] Other: LYMPHATIC: [X] No cervical adenopathy [ ] No axillary adenopathy [ ] No inguinal adenopathy [ ] Other: MUSCULOSKELETAL: [X] Normal range of motion all extremities [X] No clubbing/cyanosis [X] Spine nontender [ ] Gait normal [X] Other: pt unable to walk x 1 month SKIN: [ ] Warm and dry [X] No rash [ ] Palpation normal [ ] Other: NEUROLOGIC: [ ] Coordination normal [ ] Good strength all extremities [ ] Cranial nerves 2-12 intact [ ] Deep tendon reflexes equal bilaterally [X] Sensation grossly normal [X] Other: strength 4/5 and symmetric in all extremities PSYCHIATRIC: [X] Alert and oriented x3 [X] Mood/affect normal [X] Judgment/insight normal [ ] Recent and remote memory normal [ ] Other: LABS: [ ] Independent interpretation of labs EKG: [ ] Independent interpretation of EKG CXR: [ ] Independent interpretation of x-rays OTHER IMAGING: [x ] Independent interpretation of radiology studies ct head no acute changes ED COURSE/MEDICAL DECISION MAKING: [ ] Outside records reviewed [ ] I have reviewed relevant medical records, laboratory reports and radiology studies [ ] My findings and treatment plan were discussed with the patient and/or significant other DIFFERENTIAL DIAGNOSIS: sepsis/MS/uti MEDICAL DECISION MAKING: neuro at baseline pt with worsening MS pt set for infusion on friday family wants to take pt to Rehab facility no indication for admission at this time CONSULTED/DISCUSSED WITH: TIME: [ ] CRITICAL CARE TIME: [ ] PROCEDURES (see separate procedure note): ASSESSMENT/IMPRESSION: Multiple Sclerosis/fatigue PLAN: pt to return if any new or worsening symptoms occur DISPOSITION TIME: 2314 [x ] Home [ ] Admitted [ ] Transferred [ ] [place] [ ] [facility] [ ] [facility] [ ] [facility] [ ] [facility] [ ] Other: FOLLOW UP TIME FRAME: [ ] PC [ ] Specialist: [ ] Other: /es/ FELISA COLE MD staff physician Signed: 08/29/2024 23:02 FELISA COLE-MALKA [facility] Aug 29, 2024 07:55 PM EMERGENCY DEPT TRI AGE NOTE: << Interdisciplinary Note >> LOCATION: ED/[facility] VISIT DATE: AUG 29, 2024@19:38 LOCAL TITLE: EMERGENCY DEPT TRIAGE PARENT ID NOTE STANDARD TITLE: EMERGENCY DEPT TRIAGE NOTE DATE OF NOTE: AUG 29, 2024@19:55 ENTRY DATE: AUG 29, 2024@19:55:34 AUTHOR: ALEENA LINDQUIST EXP COSIGNER: URGENCY: STATUS: COMPLETED EMERGENCY DEPT TRIAGE PARENT ID NOTE Has ADDENDA Emergency Department/Urgent Care Center Triage Patient age:79 Sex in chart: MALE Mode of Arrival: Private vehicle Mode of Mobility: * Wheelchair Chief Complaint: patient with chronic uti. patient with confusion, fevers, dysuria. Recent admission and treatment for uti and pneumonia engineering faculty Note (Subjective/Objective): nad Level of Consciousness (AVPU): Alert = Appears aware of and responsive to the environment on their own. Follows commands, opens eyes spontaneously, and tracks objects. Vital Signs: Vital signs previously recorded this visit: TEMP: Measurement DT TEMP F(C) 08/29/2024 19:54 99.4(37.4) PULSE: Measurement DT PULSE 08/29/2024 19:54 85 RESPIRATIONS: Measurement DT RESP 08/29/2024 19:54 16 PULSE OX: Measurement DT POx (L/MIN)(%) 08/29/2024 19:54 92 BLOOD PRESSURE: Measurement DT BP 08/29/2024 19:54 174/79 PAIN SCORE: Measurement DT PAIN 08/29/2024 19:54 5 69 in [175.3 cm] (02/06/2024 09:58) WEIGHT: No values within 24 hours Pain: DVPRS Scale Location: neck Defense and Veterans Pain Rating Scale (DVPRS): 5 Interrupts some activities Patient's acceptable pain goal: Suicide Screen: [place] Suicide Severity Rating Scale (C-SSRS) screener 1. [...] required due to responses to other questions. Emergency Severity Index (VERÓNICA) level: Level 3 Previously documented allergies: Patient has answered NKA Current Problems: Active problems - Computerized Problem List is the source for the followin. Gastroesophageal reflux disease without esophagitis 2. Constipation 3. Multiple sclerosis 4. Age related macular degeneration 5. Closed fracture of shaft of right fibula 6. Incontinence 7. Type 2 diabetes mellitus 8. Essential hypertension 9. Hyperlipidemia 10. Carcinoma of prostate 11. Pain of right knee joint /rosette/ HI Soliman,piano professor RN Signed: 08/29/2024 19:58 08/29/2024 ADDENDUM STATUS: COMPLETED 1947-EKG obtained, given to ED provider. nsr 2030-20g IV placed in left fa, per policy. Labs collected, labeled at bedside, transported for analysis. IV flushes easily and without discomfort. Patient tolerated procedure well. 2034-Patient transported to Radiology via stretcher at this time. 2044-Patient returned to room at this time, awaiting results and further orders. 2129-Patient resting on stretcher, call light within reach, siderail up, assistance offered, updated on plan of care and delays. Patient expresses no needs at this time. A & O x 4. No distress noted. Awaiting dispo 2154-Patient medicated per order at this time. normal saline 2199-patient cleaned of incontinence; brief and bedding changed. 2319-IV removed, intact, bleeding controlled, dressing applied. Verbal and written discharge instructions given to patient. Verbalizes understanding. Discharged via wheelchair. Armband removed and placed in shred box. /rosette/ HI Soliman,piano professor RN Signed: 08/29/2024 23:36 << Interdisciplinary Note - Cont. >> LOCAL TITLE: EMERGENCY DEPT NURSING ASSESSMENT CHILD ID NOTE STANDARD TITLE: EMERGENCY DEPT NOTE DATE OF NOTE: AUG 29, 2024@19:58 STATUS: COMPLETED ASSESSMENT: PAIN: Do you have pain now? Yes Intensity: Severity Scale (5) Location: neck Chronic (over 3 months) How long? Constant, Ache PAST MEDICAL HISTORY: Active problems - Computerized Problem List is the source for the followin. Gastroesophageal reflux disease without esophagitis 2. Constipation 3. Multiple sclerosis 4. Age related macular degeneration 5. Closed fracture of shaft of right fibula 6. Incontinence 7. Type 2 diabetes mellitus 8. Essential hypertension 9. Hyperlipidemia 10. Carcinoma of prostate 11. Pain of right knee joint Transfer Patients If outpatient medication list below is NOT current. See chart/nursing transfer note, provider H&P, or remote data for current list. Medication List Current: YES NON-VA/Herbal Vitamins/Medications: No change in CPRS documentation Medicine/Supplies Qty Last Filled 1) UNDERPAD,BED [id number] TRANQUILITY-2710: USE 280 AUGUST 02, 2024 UNDERPAD DIRECTED THREE TIMES A DAY NEEDED 2) GLOVE VINYL MEDIUM PWDR-FREE NONSTERILE: USE GLOVE 300 2024 DIRECTED FOUR TIMES A DAY CLEANING 3) BRIEF,TRANQ ALEX OVERNITE XL#2117 PULLUP: USE 1 168 AUGUST 02, 2024 BRIEF DIRECTED THREE TIMES A DAY FOR INCONTINENCE 4) CLOTRIMAZOLE 1% TOP CREAM: APPLY SMALL AMOUNT TO 60 MAY 19, 2024 AFFECTED AREA THREE TIMES A DAY NEEDED FOR 5) DICLOFENAC NA 1% TOP GEL: APPLY 2 GRAM STRIP TO 200 MAY 19, 2024 AFFECTED AREA EVERY 6 HOURS NEEDED FOR PAIN 6) HYDROPHILIC (EQV EUCERIN) TOP CREAM: APPLY SMALL 454 MAY 19, 2024 AMOUNT TO AFFECTED AREA NEEDED FOR DRY SKIN 7) IPRATROPIUM BR 0.03% NASAL SPRAY: SPRAY 1 SPRAY IN 30 MAY 19, 2024 NOSE WITH MEALS FOR NASAL ALLERGIES Active Non-VA Meds = 1) BISOPROLOL 5MG MOUTH DAILY 2) GABAPENTIN 100MG MOUTH FOUR TIMES A DAY 3) ATORVASTATIN 20MG MOUTH AT BEDTIME 4) FAMOTIDINE (famOTidine) 20MG MOUTH TWICE A DAY NEEDED 5) METFORMIN 500MG MOUTH DAILY 6) LEUPROLIDE (ELIGARD 6 MONTH) (HAZARDOUS) 45MG (1 DOSE) UNDER THE SKIN ONCE 7) OCRELIZUMAB Dose Unknown INTO THE VEIN DIRECTED 8) ASPIRIN *RESTRICTED* 81MG MOUTH DAILY 9) METHENAMINE HIPPURATE 1GM MOUTH TWICE A DAY 10) SILODOSIN 8MG MOUTH DAILY 11) PRESERVISION AREDS VITAMIN 2 CAPSULES MOUTH DAILY 12) CHOLECALCIFEROL (VIT D3-400 UNIT) 10MCG 10MCG MOUTH DAILY 13) POLYETHYLENE GLYCOL 3350 17 GRAMS (ONE CAPFUL FILLED TO LINE) IN LIQUID MOUTH DAILY 14) PSYLLIUM CAPSULE 1 CAPSULE MOUTH DAILY 15) CHOLECALCIFEROL (VITAMIN D3) 50MCG MOUTH TWICE A DAY Reviewed current medications with patient/signficant other, patient/significant other reports patient taking ALL VA, Non VA & OTC medications as listed on CPRS medication tab outpatient section. YES: *Printed copy of medication list provided to patient and reviewed. No *Explained to the patient the importance of keeping providers updated on medication changes and to carrying an updated list of medication at all times in case of an emergency situation. Yes ETOH: NO Substance Use: NO LEARNING READINESS: Barriers/Limitations to Learning: No Barriers Interested in Learning About Your Health/Care? Yes, but does not identify a specific education need at present What are you interested in learning? With whom would you like us to share this information? Patient only FALL RISK: Have you fallen at home in the last 3 months? Yes Uses Assistive Device,i.e. FOCUSED ASSESSMENT: NEUROLOGICAL/EYE: [place] Coma Scale: Eye Opening Response: 4-Spontaneous Motor Response: 6-Obeys Command Verbal Response: 4-Confused and converses Total EMV=14 SPEECH: Normal RESPIRATORY: Non-labored CV/CIRCULATORY: Warm, Dry COLOR: [place] CAP REFILL: PEDAL PULSES: Left Radial - Palpable Right Radial - Palpable Left Pedal - Right Pedal - INTEGUMENTARY: Medical Devices: Physical evidence of abuse or neglect? No Patient or Other verbally reports current abuse, neglect, or exploitation? No If yes: Provider notified? Yes If yes: Social service consult? Yes /rosette/ Aleena Lindquist MSN,piano professor RN Signed: 08/29/2024 20:02 ALEENA LINDQUIST-MALKA [facility]
--- OUTSIDE RECORDS SUMMARY | 2024-08-30 07:34 | XMS_ITS | Encounter Summary ---
Author Name [facility] [place] Organization [facility] [place] [place] Address [address] [place] [address] Care Team Providers Care Roller Picker Name Role Phone YULISSA HENDERSON Primary Care [...] PLAN F Mar 24, 2014 PLAN F [id number] [phone] LUIS MANUEL PERDOMO PATIENT BS [place] [employer] PREFERRED PROVIDER ORGANIZAT ION (PPO) [facility] SLE Sep 21, 2012 [id number] LUIS MANUEL PERDOMO PATIENT [employer] ([id number]) PRESCRIPT ION WL3A Sep 21, 2012 [id number] [phone] LUIS MANUEL PERDOMO PATIENT MEDICARE (WNR) MEDICARE (M) PART B Sep 21, 2012 PART B [id number] NOEMI PERDOMO PATIENT MEDICARE (WNR) MEDICARE (M) PART A Jan 22, 2011 PART A [id number] NOEMI PERDOMO PATIENT MEDICARE PART D (WNR) MEDICARE (M) PART D Mar 24, 2014 PART D [id number] LUIS MANUEL PERDOMO PATIENT Selected Encounter This section includes the information on record at [place] for the Encounter. Date/Time Encounter Type Encounter Description Reason Provider Source Aug 30, 2024 11:34 AM ELECTROCARDIOGRAM COMPLETE EKG ICD-10-CM I10 Essential (primary) hypertension ELGENDY,ALEX M Y IHE Encounter Template Text not used by [place] Assessments - Encounter Diagnoses This section includes the primary and secondary diagnoses documented for the Encounter. Date/Time Primary/Secondary Diagnosis Diagnosis Name Provider Source Aug 31, 2024 03:12 PM PRIMARY Essential (primary) hypertension EDEL HANSEN [facility] Plan of Treatment: Future Appointments (+ 6 months) and Future Tests (+/- 45 days) The Plan of Treatment section includes future care activities for the patient from all [place] treatmentfacilities. This section includes future appointments and future orders which are active, pending or scheduled. Future Appointments This section includes appointments that were scheduled to occur 6 months from the date of the Encounter, up to a maximum of 20 appointments. The data comes from all [place] treatment facilities. Appointment Date/Time Appointment Type Appointme nt Facility Name Sep 13, 2024 08:00 AM [facility]ATORY - NONE [place] [facility] Sep 30, 2024 01:30 PM AMBULATORY - SURGERY [place] [facility] Active, Pending, and Scheduled Orders This section includes a listing of several types of active, pending, and scheduled orders, including clinic medications orders, diagnostic test orders, procedure orders and consult orders; where the start date of the order is 45 days before the date of the Encounter or 45 days after the date of theEncounter. The data comes from all [place] treatment [facility]. Test Date/Time Test Type Test Details Facility Name Sep 13, 2024 01:33 PM Consult Order [facility] Docking Saw Operator's Choice [facility] Lab Results: +/- 30 days of the encounter This section includes the Chemistry and Hematology Lab Results on record with [place] for the patient. Radiology Reports and Pathology Reports are provided separately, in subsequent sections. Lab Results This section contains the Chemistry/Hematology Results that were resulted 30 days before or 30 daysafter the date of the Encounter. Date/Time Source Result Type Result - Unit Interpretation Reference Range Specimen Type Comment Sep 09, 2024 12:16 PM [facility] GLUCOSE-HAND MONITOR CAPILLARY Specimen Type: CAPILLARY Comment: Test performed by: [id number] Meter #: [id number] Ordering Provider: FRANCK TURNER Report Released Date/Time: Sep 09, 2024 12:33 PM Reporting Lab: [address] [address] Performing Lab: [address] [address] GLUCOSE-HAND MONITOR 116 mg/dL H 71-99 Sep 09, 2024 06:07 AM [facility] GLUCOSE-HAND MONITOR CAPILLARY Specime n Type: CAPILLARY Comment: Test performed by: [id number] Meter #: [id number] Ordering Provider: FRANCK TURNER Report Released Date/Time: Sep 09, 2024 08:17 AM Reporting Lab: [address] [address] Performing Lab: [address] [address] GLUCOSE-HAND MONITOR 112 mg/dL H 71-99 Sep 08, 2024 09:13 PM [facility] GLUCOSE-HAND MONITOR CAPILLARY Specime n Type: CAPILLARY Comment: Test performed by: [id number] Meter #: [id number] Ordering Provider: FRANCK TURNER Report Released Date/Time: Sep 08, 2024 09:31 PM Reporting Lab: [address] [address] Performing Lab: [address] [address] GLUCOSE-HAND MONITOR 107 mg/dL H 71-99 Sep 08, 2024 03:49 PM [facility] GLUCOSE-HAND MONITOR CAPILLARY Specime n Type: CAPILLARY Comment: AAMIR RN notified Test performed by: [id number] Meter #: [id number] Ordering Provider: FRANCK TURNER Report Released Date/Time: Sep 08, 2024 04:33 PM Reporting Lab: [address] [address] Performing Lab: [address] [address] GLUCOSE-HAND MONITOR 162 mg/dL H -Sep 08, 2024 11:43 AM [facility] GLUCOSE-HAND MONITOR CAPILLARY Specime n Type: CAPILLARY Comment: AAMIR RN notified Test performed by: [id number] Meter #: [id number] Ordering Provider: FRANCK TURNER Report Released Date/Time: Sep 08, 2024 12:03 PM Reporting Lab: [address] [address] Performing Lab: [address] [address] GLUCOSE-HAND MONITOR 133 mg/dL H Sep 08, 2024 06:13 AM [facility] GLUCOSE-HAND MONITOR CAPILLARY Specime n Type: CAPILLARY Comment: Test performed by: [id number] Meter #: [id number] Ordering Provider: FRANCK TURNER Report Released Date/Time: Sep 08, 2024 06:46 AM Reporting Lab: [address] [address] Performing Lab: [address] [address] GLUCOSE-HAND MONITOR 104 mg/dL H Sep 07, 2024 07:59 PM [facility] GLUCOSE-HAND MONITOR CAPILLARY Specime n Type: CAPILLARY Comment: Test performed by: [id number] Meter #: [id number] Ordering Provider: FRANCK TURNER Report Released Date/Time: Sep 07, 2024 09:05 PM Reporting Lab: [address] [address] Performing Lab: [address] [address] GLUCOSE-HAND MONITOR 107 mg/dL H Sep 07, 2024 04:39 PM [facility] GLUCOSE-HAND MONITOR CAPILLARY Specime n Type: CAPILLARY Comment: Test performed by: [id number] Meter #: [id number] Ordering Provider: FRANCK TURNER Report Released Date/Time: Sep 07, 2024 05:09 PM Reporting Lab: [address] [address] Performing Lab: [address] [address] GLUCOSE-HAND MONITOR 105 mg/dL H 71-99 Sep 07, 2024 11:41 AM [facility] GLUCOSE-HAND MONITOR CAPILLARY Specime n Type: CAPILLARY Comment: Test performed by: [id number] Meter #: [id number] Ordering Provider: FRANCK TURNER Report Released Date/Time: Sep 07, 2024 12:41 PM Reporting Lab: [address] [address] Performing Lab: [address] [address] GLUCOSE-HAND MONITOR 144 mg/dL H -Sep 07, 2024 05:56 AM [facility] GLUCOSE-HAND MONITOR CAPILLARY Specime n Type: CAPILLARY Comment: Test performed by: [id number] Meter #: [id number] Ordering Provider: FRANKC TURNER Report Released Date/Time: Sep 07, 2024 06:31 AM Reporting Lab: [address] [address] Performing Lab: [address] [address] GLUCOSE-HAND MONITOR 96 mg/dL -Sep 06, 2024 08:10 PM [facility] GLUCOSE-HAND MONITOR CAPILLARY Specime n Type: CAPILLARY Comment: Test performed by: [id number] Meter #: [id number] Ordering Provider: FRANCK TURNER Report Released Date/Time: Sep 06, 2024 08:52 PM Reporting Lab: [address] [address] Performing Lab: [address] [address] GLUCOSE-HAND MONITOR 124 mg/dL H -Sep 06, 2024 04:27 PM [facility] GLUCOSE-HAND MONITOR CAPILLARY Specime n Type: CAPILLARY Comment: Test performed by: [id number] Meter #: [id number] Ordering Provider: FRANCK TURNER Report Released Date/Time: Sep 06, 2024 05:15 PM Reporting Lab: [address] [address] Performing Lab: [address] [address] GLUCOSE-HAND MONITOR 107 mg/dL H -Sep 06, 2024 12:12 PM [facility] GLUCOSE-HAND MONITOR CAPILLARY Specime n Type: CAPILLARY Comment: Test performed by: [id number] Meter #: [id number] Ordering Provider: FRANCK TURNER Report Released Date/Time: Sep 06, 2024 12:29 PM Reporting Lab: [address] [address] Performing Lab: [address] [address] GLUCOSE-HAND MONITOR 181 mg/dL H -Sep 06, 2024 06:13 AM [facility] GLUCOSE-HAND MONITOR CAPILLARY Specime n Type: CAPILLARY Comment: Test performed by: [id number] Meter #: [id number] Ordering Provider: FRANCK TURNER Report Released Date/Time: Sep 06, 2024 06:36 AM Reporting Lab: [address] [address] Performing Lab: [address] [address] GLUCOSE-HAND MONITOR 102 mg/dL H -Sep 05, 2024 08:47 PM [facility] GLUCOSE-HAND MONITOR CAPILLARY Specime n Type: CAPILLARY Comment: Test performed by: [id number] Meter #: [id number] Ordering Provider: FRANCK TURNER Report Released Date/Time: Sep 06, 2024 02:13 AM Reporting Lab: [address] [address] Performing Lab: [address] [address] GLUCOSE-HAND MONITOR 103 mg/dL H -Sep 05, 2024 04:40 PM [facility] GLUCOSE-HAND MONITOR CAPILLARY Specime n Type: CAPILLARY Comment: AAMIR RN notified Test performed by: [id number] Meter #: [id number] Ordering Provider: FRANCK TURNER Report Released Date/Time: Sep 05, 2024 05:11 PM Reporting Lab: [address] [address] Performing Lab: [address] [address] GLUCOSE-HAND MONITOR 113 mg/dL H Sep 05, 2024 12:06 PM [facility] GLUCOSE-HAND MONITOR CAPILLARY Specime n Type: CAPILLARY Comment: Test performed by: [id number] Meter #: [id number] Ordering Provider: FRANCK TURNER Report Released Date/Time: Sep 05, 2024 12:23 PM Reporting Lab: [address] [address] Performing Lab: [address] [address] GLUCOSE-HAND MONITOR 115 mg/dL H Sep 05, 2024 06:26 AM [facility] GLUCOSE-HAND MONITOR CAPILLARY Specime n Type: CAPILLARY Comment: AAMIR Correction Dose Test performed by: [id number] Meter #: [id number] Ordering Provider: FRANCK TURNER Report Released Date/Time: Sep 05, 2024 06:43 AM Reporting Lab: [address] [address] Performing Lab: [address] [address] GLUCOSE-HAND MONITOR 111 mg/dL H Sep 04, 2024 08:59 PM [facility] GLUCOSE-HAND MONITOR CAPILLARY Specime n Type: CAPILLARY Comment: AAMIR RN notified Test performed by: [id number] Meter #: [id number] Ordering Provider: FRANCK TURNER Report Released Date/Time: Sep 04, 2024 09:36 PM Reporting Lab: [address] [address] Performing Lab: [address] [address] GLUCOSE-HAND MONITOR 123 mg/dL H Sep 04, 2024 04:41 PM [facility] GLUCOSE-HAND MONITOR CAPILLARY Specime n Type: CAPILLARY Comment: AAMIR RN notified Test performed by: [id number] Meter #: [id number] Ordering Provider: FRANCK TURNER Report Released Date/Time: Sep 04, 2024 05:03 PM Reporting Lab: [place] [phone] Performing Lab: [place] [phone] GLUCOSE-HAND MONITOR 118 mg/dL H Sep 04, 2024 12:36 PM [facility] GLUCOSE-HAND MONITOR CAPILLARY Specime n Type: CAPILLARY Comment: AAMIR RN notified Test performed by: [id number] Meter #: [id number] Ordering Provider: FRANCK TURNER Report Released Date/Time: Sep 04, 2024 12:53 PM Reporting Lab: [place] [phone] Performing Lab: [place] [phone] GLUCOSE-HAND MONITOR 129 mg/dL H Sep 04, 2024 12:03 PM [facility] RESPIRATORY VIRUS PANEL (BIOFIRE) NASOPHARYN X Specimen Type: NASOPHARYNX Comment: ~For Test: RESPIRATORY VIRUS PANEL (BIOFIRE) ~ORDER READ BACK TO: FRANCK TURNER 09/04/24@11:30 Ordering Provider: FRANCK TURNER Report Released Date/Time: Sep 04, 2024 11:33 AM Reporting Lab: [place] [address] Performing Lab: [place] [address] ADENOVIRUS (BIOFIRE) Not Detected -Not D etected [...] Detected Sep 04, 2024 06:55 AM [facility] MAGNESIUM PLASMA Specimen Type: PLASM A [...] Sep 03, 2024 11:10 AM Reporting Lab: [facility] [address] [address] Performing Lab: [facility] [address] [place] [address] MAGNESIUM 1.8 mg/dL 1.6-2.6 Sep 04, 2024 06:55 AM [facility] PANEL 1 PLASMA Specimen Type: PLASM A [...] Sep 03, 2024 11:10 AM Reporting Lab: [address] [address] Performing Lab: [place] [phone] CREATININE 0.75 mg/dL 0.72-1.25 UREA NITROGEN 13 mg/dL 9-25 GLUCOSE 105 mg/dL H 74-100 SODIUM 128 mmol/L L 136-145 POTASSIUM 3.9 mmol/L 3.5-5.1 CHLORIDE 99 mmol/L 98-107 CO2 21 mmol/L L 22-29 CALCIUM 8.0 mg/dL L 8.4-10.2 ANION GAP 8 meq/L 3-19 eGFR (CKD-EPI) >90 Sep 04, 2024 06:02 AM [facility] GLUCOSE-HAND MONITOR CAPILLARY Specime n Type: CAPILLARY Comment: Test performed by: [id number] Meter #: [id number] Ordering Provider: FRANCK TURNER Report Released Date/Time: Sep 04, 2024 06:28 AM Reporting Lab: [address] [address] Performing Lab: [place] [phone] GLUCOSE-HAND MONITOR 114 mg/dL H -99 Sep 03, 2024 05:19 PM [facility] GLUCOSE-HAND MONITOR CAPILLARY Specime n Type: CAPILLARY Comment: Test performed by: [id number] Meter #: [id number] Ordering Provider: FRANCK TURNER Report Released Date/Time: Sep 03, 2024 05:37 PM Reporting Lab: [place] [phone] Performing Lab: [place] [phone] GLUCOSE-HAND MONITOR 124 mg/dL H 71-99 Sep 03, 2024 04:41 PM [facility] GLUCOSE-HAND MONITOR CAPILLARY Specime n Type: CAPILLARY Comment: Test performed by: [id number] Meter #: [id number] Ordering Provider: FRANCK TURNER Report Released Date/Time: Sep 03, 2024 06:09 PM Reporting Lab: [address] [address] Performing Lab: [address] [address] GLUCOSE-HAND MONITOR 112 mg/dL H 71-99 Sep 03, 2024 01:35 PM [facility] URINE LYTES URINE Specimen Type : URINE Comment: ~Altered mental status with no identifiable cause Ordering Provider: FRANCK TURNER Report Released Date/Time: Sep 02, 2024 04:44 PM Reporting Lab: [address] [address] Performing Lab: [address] [address] SODIUM 130 mmol/L POTASSIUM 47.6 mmol/L CHLORIDE 137 mmol/L Sep 03, 2024 01:35 PM [facility] CREATININE URINE Specimen Type: URINE Comment: ~Altered mental status with no identifiable cause Ordering Provider: FRANCK TURNER Report Released Date/Time: Sep 02, 2024 04:44 PM Reporting Lab: [address] [address] Performing Lab: [address] [address] CREATININE 150.9 mg/dL Sep 03, 2024 01:35 PM [facility] OSMOLALITY URINE Specimen Type: URINE Comment: ~Altered mental status with no identifiable cause Ordering Provider: FRANCK TURNER Report Released Date/Time: Sep 02, 2024 04:44 PM Reporting Lab: [address] [address] Performing Lab: [address] [address] OSMOLALITY 522 mosm/kg 38-1400 Sep 03, 2024 01:35 PM [facility] UREA NITROGEN URINE Specimen Type : URINE Comment: ~Altered mental status with no identifiable cause Ordering Provider: FRANCK TURNER Report Released Date/Time: Sep 02, 2024 04:44 PM Reporting Lab: [address] [place] [address] Performing Lab: [address] [address] UREA NITROGEN 320 mg/dL Sep 03, 2024 01:35 PM [facility] URINALYSIS WITH REFLEX TO CULTURE URINE Specimen Type: URINE Comment: ~Altered mental status with no identifiable cause Ordering Provider: FRANCK TURNER Report Released Date/Time: Sep 02, 2024 04:44 PM Reporting Lab: [address] Performing Lab: [address] [address] URINE COLOR Yellow Colorless-Yellow APPEARANCE CLOUDY H [...] H 0-28 Sep 03, 2024 11:58 AM [facility] GLUCOSE-HAND MONITOR CAPILLARY Specime n Type: CAPILLARY Comment: AAMIR RN notified Test performed by: [id number] Meter #: [id number] Ordering Provider: FRANCK TURNER Report Released Date/Time: Sep 03, 2024 12:15 PM Reporting Lab: [address] [address] Performing Lab: [address] [address] GLUCOSE-HAND MONITOR 135 mg/dL H 71-99 Sep 03, 2024 07:09 AM [facility] GLUCOSE-HAND MONITOR CAPILLARY Specime n Type: CAPILLARY Comment: Test performed by: [id number] Meter #: [id number] Ordering Provider: FRANCK TURNER Report Released Date/Time: Sep 03, 2024 07:26 AM Reporting Lab: [address] [address] Performing Lab: [address] [address] GLUCOSE-HAND MONITOR 120 mg/dL H 71-99 Sep 03, 2024 07:05 AM [facility] CBC/PLT BLOOD Specimen Type: BLOOD No comment entered. Ordering Provider: FRANCK TURNER Report Released Date/Time: Sep 02, 2024 04:29 PM Reporting Lab: [address] [address] Performing Lab: [address] [address] WBC 6.9 10*3/uL 5.0-10.0 RBC 3.48 10*6/uL L 4.6-6.2 HGB 9.5 g/dL L 14.0-18.0 HCT 29.1 L 42.0-52.0 MCV 83.6 fL 80.0-94.0 MCH 27.3 pg 27.0-31.0 MCHC 32.6 g/dL 32.0-36.0 PLT 258 10*3/uL 150-450 MPV 10.3 fL 9.0-13.1 RDW 14.8 11.0-16.0 NRBC 0.0 0.0-0.0 Sep 03, 2024 07:05 AM [facility] MAGNESIUM PLASMA Specimen Type: PLASM A Comment: [...] Sep 02, 2024 04:29 PM Reporting Lab: [address] [address] Performing Lab: [address] [address] MAGNESIUM 1.7 mg/dL 1.6-2.6 Sep 03, 2024 07:05 AM [facility] PANEL 1 PLASMA Specimen Type: PLASM A [...] Sep 02, 2024 04:29 PM Reporting Lab: [address] [address] Performing Lab: [address] [address] CREATININE 0.82 mg/dL 0.72-1.25 UREA NITROGEN 12 mg/dL 9-25 GLUCOSE 109 mg/dL H 74-100 SODIUM 129 mmol/L L 136-145 POTASSIUM 4.2 mmol/L 3.5-5.1 CHLORIDE 99 mmol/L 98-107 CO2 21 mmol/L L 22-29 CALCIUM 8.1 mg/dL L 8.4-10.2 ANION GAP 9 meq/L 3-19 eGFR (CKD-EPI) 90 Sep 03, 2024 07:05 AM [facility] GLYCOHEMOGLOBIN BLOOD Specimen Type: BLOOD Comment: Prediabetes: 5.7%-6.4% Diabetes: >= 6.5% [facility] guidelines for A1c interpretation: Glycemic control targets are based on Shared Decision Making between clinicians and patients. Criteria used to establish an A1c target recommendation can be found at https://www.[place].gov/qualityandpatientsafety/ and include the use of result accuracy [...] 8.73 and 9.27. Ref: https://ngsp.org/CAPdata.asp. The in-house Lexim-CensorNet D-100 analyzer has a historical CV <= 2%. Contact the laboratory for further performance characteristics of this assay. Ordering Provider: FRANCK TURNER Report Released Date/Time: Sep 02, 2024 04:29 PM Reporting Lab: [place] [phone] Performing Lab: [place] [phone] GLYCOHEMOGLOBIN 5.6 4.4-5.6 Sep 03, 2024 07:05 AM [facility] OSMOLALITY SERUM Specimen Type: SERUM No comment entered. Ordering Provider: FRANCK TURNER Report Released Date/Time: Sep 02, 2024 04:44 PM Reporting Lab: [place] [phone] Performing Lab: [place] [phone] OSMOLALITY 271 mosm/kg L 280-300 Sep 02, 2024 08:15 PM [facility] GLUCOSE-HAND MONITOR CAPILLARY Specime n Type: CAPILLARY Comment: AAMIR DEXTER notified Test performed by: [id number] Meter #: [id number] Ordering Provider: FRANCK TURNER Report Released Date/Time: Sep 02, 2024 08:57 PM Reporting Lab: [place] [phone] Performing Lab: [place] [phone] GLUCOSE-HAND MONITOR 126 mg/dL H 71-99 Sep 02, 2024 06:10 PM [facility] MRSA SURVL NARES DNA NARES Specime n [...] Sep 02, 2024 05:12 PM Reporting Lab: [address] [address] Performing Lab: [place] [phone] MRSA SURVL NARES DNA Negative Negative Sep 02, 2024 05:36 PM [facility] GLUCOSE-HAND MONITOR CAPILLARY Specime n Type: CAPILLARY Comment: Test performed by: [id number] Meter #: [id number] Ordering Provider: FRANCK TURNER Report Released Date/Time: Sep 02, 2024 05:53 PM Reporting Lab: [address] [address] Performing Lab: [place] [phone] GLUCOSE-HAND MONITOR 127 mg/dL H 71-99 Aug 29, 2024 10:04 PM [facility] URINALYSIS WITH REFLEX TO CULTURE URINE Specimen Type: URINE Comment: ~For Test: URINALYSIS WITH REFLEX TO CULTURE ~REORDER Ordering Provider: FELISA COLE Report Released Date/Time: Aug 29, 2024 09:36 PM Reporting Lab: [address] [address] Performing Lab: [address] [address] URINE COLOR Yellow Colorless-Yellow APPEARANCE Clear Clear [...] /[LPF] 0-28 Aug 29, 2024 08:32 PM [facility]IGH SENSITIVITY TROPONIN I PLASMA [...] Aug 29, 2024 07:55 PM Reporting Lab: [address] [address] Performing Lab: [address] [address] HIGH SENSITIVITY TROPONIN I 7 4-35 Aug 29, 2024 08:32 PM [facility] CBC/PLT BLOOD Specimen Type: BLOOD No comment entered. Ordering Provider: FELISA COLE Report Released Date/Time: Aug 29, 2024 07:55 PM Reporting Lab: [address] [address] Performing Lab: [facility] [address] [address] WBC 11.2 10*3/uL H 5.0-10.0 RBC 3.97 10*6/uL L 4.6-6.2 HGB 10.9 g/dL L 14.0-18.0 HCT 33.5 L 42.0-52.0 MCV 84.4 fL 80.0-94.0 MCH 27.5 pg 27.0-31.0 MCHC 32.5 g/dL 32.0-36.0 PLT 230 10*3/uL 150-450 MPV 10.2 fL 9.0-13.1 RDW 14.6 11.0-16.0 NRBC 0.0 0.0-0.0 Aug 29, 2024 08:32 PM [facility] PANEL 5 PLASMA Specimen Type: PLASM A [...] Aug 29, 2024 07:55 PM Reporting Lab: [address] [address] Performing Lab: [address] [address] CREATININE 0.85 mg/dL 0.72-1.25 UREA NITROGEN 15 [...] ALL of a patient's completed or amended [place] Advance and Rescinded Directives. The entries below indicate that a directive exists for the patient, but an actual copy is not included with this document. The data comes from all [place] facilities. Date Advance Directives Provider Source Mar 08, 2024 ADVANCE DIRECTIVE DISCUSSION [facility] Radiology Reports: +/- 30 days of the [...] the Encounter. The data comes from all [place] treatment facilities. Date/Time Radiology Report Provider Source Sep 06, 2024 01:40 PM MRI BRAIN W & W/O: LUIS MANUEL PERDOMO [id number] -[id number] M Exm Date: SEP 06, 2024@13:40 Req Phys: FRANCK TURNER Loc: 5-MED/TEL/09-06-2024@19:09 Img Loc: [facility] Service: [place] [address] (Case [id number] COMPLETE) MRI BRAIN W & W/O (MRI Detailed) CPT:22571 Contrast Media : Gadolinium Reason for Study: SEE CLINICAL HISTORY Pharmaceutical: GADOTERIDOL 279.3MG/ML 20ML INJ, 19ml Clinical History: MRI Screening (Required): IMPLANTED DEVICE DOCUMENTATION IMPLANTED DEVICE DOCUMENTATION NOT FOUND Does the have any Cardiac Implants? None Does the [place] have any implanted stimulators? None Does the [place] have cochlear implants? No Does the have Cerebral aneurysm clip(s)? I don't know Does the have any shrapnel? I don't know If yes, where in your body? Please list other implants not listed above: MRI table has a weight limit of 551 lbs. [place]'s Weight: *212 lb [96.16 kg] (09/04/2024 05:19) Is this patient claustrophobic?: No REASON FOR EXAM:MULTIPLE SCLEROSIS (indicate suspected or established) PERTINENT PATIENT HISTORY: MS c/f for flare Risk factors for GADOLINIUM NEPHROGENIC SYSTEMIC SCLEROSIS: Report Status: Verified Date Reported: SEP 06, 2024 Date Verified: SEP 06, 2024 Marking Devices Assembler E-Sig: Report: MRI brain without and with [...] Staff: ARCENIO LEYVA, Staff Radiologist Verified by wood window and door craftsman for ARCENIO LEYVA /ARCENIO AVILA AAMIRWILSON-CDSav [facility] Sep 06, 2024 01:40 PM MRI C SPINE W & W/ O CONTRAST(FURTHER SEQUENCES): LUIS MANUEL PERDOMO [id number] -1945 M Exm Date: SEP 06, 2024@13:40 Req Phys: FRANCK TURNER Pat Loc: 5-MED/TEL/09-07-2024@06:42 Img Loc: [facility] Service: [place] [address] (Case [id number] COMPLETE) MRI C SPINE W & W/O CONTRAST(FURT(MRI Detailed) CPT:88851 Contrast Media : Gadolinium Reason for Study: SEE CLINICAL HISTORY Pharmaceutical: GADOTERIDOL 279.3MG/ML 20ML INJ, 19ml Clinical History: STATUS OF PLAIN FILMS:Not performed (Provide justification for MR W/O prior plain films below.) MRI for MS MRI Screening (Required): IMPLANTED DEVICE DOCUMENTATION IMPLANTED DEVICE DOCUMENTATION NOT FOUND Does the [place] have any Cardiac Implants? None Does the [place] have any implanted stimulators? None Does the have cochlear implants? No Does the [place] have Cerebral aneurysm clip(s)? I don't know Does the [place] have any shrapnel? I don't know If [...] 07, 2024 Date Verified: SEP 07, 2024 Marking Devices Assembler E-Sig: Report: EXAMINATION: MRI OF THE CERVICAL [...] Interpreting Staff: HUANG TAI, Radiologist Verified by wood window and door craftsman for HUANG TAI /HUANG WHEATLEY-Sav [facility] Sep 03, 2024 10:45 AM CHEST SINGLE(1) EW: LUIS MANUEL PERDOMO FABIAN [id number] [id number] M Exm Date: SEP 03, 2024@10:45 Req Phys: FRANCK TURNER [facility] Loc: 5-MED/TEL/09-03-2024@10:56 Img Loc: D RADIOLOGY Service: [place] [address] (Case [id number] COMPLETE)CHEST SINGLE(1) VIEW (RAD Detailed) CPT:33672 Proc Modifiers : PORTABLE EXAM Reason for Study: Eval volume status Clinical History: Report Status: Verified Date Reported: SEP 03, 2024 Date Verified: SEP 03, 2024 Marking Devices Assembler E-Sig: Report: EXAMINATION: SINGLE VIEW CHEST CLINICAL [...] Interpreting Staff: HUANG TAI, Radiologist Verified by wood window and door craftsman for HUANG TAI /[facility] Aug 29, 2024 08:[address] HEAD W/O CONT: LUIS MANUEL PERDOMO [id number] -1945 M Exm Date: AUG 29, 2024@20:28 Req Phys: FELISA COLE Loc: ED/4P-12A (Req'g Loc) Img Loc: CT SCAN Service: Unknown [place] [id number] (Case [id number] COMPLETE) CT HEAD W/O CONT (CT Detailed) CPT:92366 Reason for Study: SEE CLINICAL HISTORY Clinical History: REASON FOR SEND OUT: ATTENDING PHYSICIAN NAME: New transient neurological s/s - suspected TIA HISTORY/REASON FOR EXAM: confusion Report Status: Verified Date Reported: AUG 29, 2024 Date Verified: AUG 29, 2024 Marking Devices Assembler E-Sig: Report: HISTORY confusion COMPARISON No prior [...] NO ALERT REQUIRED Primary Interpreting Staff: ABDIRAHMAN CROW Staff Physician Verified by wood window and door craftsman for ABDIRAHMAN CROW /[facility]DIR[facility]MAN [facility] Pathology Reports: +/- 30 days [...] the Encounter. The data comes from all [place] treatment facilities. Date/Time Pathology Report Provider Source Sep 03, 2024 01:35 PM LR MICROBIOLOGY RE PORT: Reporting Lab: [facility] [IA# [id number]] [address] [place] [id number] Accession [UID]: [id number] [[id number]] Received: Sep 03, 2024@14:02 Collection sample: URINE, [...] By: [facility] [IA# [id number]] [address] [place] [phone] MAGDY CALABRESE-Sav [facility] Sep 02, 2024 06:00 PM LR MICROBIOLOGY RE PORT: Reporting Lab: [facility] [CLIA# [id number]] [address] [place] [id number] Accession [UID]: [id number] [[id number]] Received: Sep 02, 2024@18:07 Collection sample: BLD CULTURE BOTTLES Collection date: Sep 02, 2024 18:00 Site/Specimen: BLOOD Provider: FRANCK TURNER Comment on specimen: L HAND Test(s) ordered: CULTURE, BLOOD................ completed: Sep 08, 2024 * BACTERIOLOGY FINAL REPORT => Sep 08, 2024 08:25 TECH CODE: [id number] Bacteriology Remark(s): Blood culture status=NO GROWTH (unless notified otherwise) 09/03/2024 AEROBIC: NO GROWTH ANAEROBIC: NO GROWTH =--=--=--=--=--=--=--=--=--=-- =--=--=--=--=--=--=--=--=--=-- =--=--=--=--=--=-- Performing Laboratory: Bacteriology Report Performed By: [facility] [CLIA# [id number]] [address] [place] [phone] [facility] Aug 29, 2024 10:18 PM LR MICROBIOLOGY RE PORT: Reporting Lab: [facility] [CLIA# [id number]] [address] [place] [id number] Accession [UID]: [id number] [[id number]] Received: Aug 29, 2024@22:18 Collection sample: URINE, CLEAN CATCH Collection date: Aug 29, 2024 22:18 Site/Specimen: URINE Provider: FELISA COLE Test(s) ordered: CULTURE, URINE................ completed: Aug 31, 2024 09:51 * BACTERIOLOGY FINAL REPORT => Aug 31, 2024 09:51 TECH CODE: [id number] Bacteriology Remark(s): NO GROWTH 08/30/2024 <10,000 CFU/ML. 08/31/2024 =--=--=--=--=--=--=--=--=--=-- =--=--=--=--=--=--=--=--=--=-- =--=--=--=--=--=-- Performing Laboratory: Bacteriology Report Performed By: [facility] [CLIA# [id number]] [address] [place] [address] MAGDY CALABRESE [facility] Encounter Notes: All associated encounter notes This section contains the clinical notes associated to the Encounter. Date/Time Encounter Note(s) Provider Source Aug 30, 2024 12:32 PM CARDIOLOGY CONSULT : LOCAL TITLE: EKG-INTERPRETATION ONLY CONSULT STANDARD TITLE: CARDIOLOGY CONSULT DATE OF NOTE: AUG 30, 2024@12:32:08 ENTRY DATE: AUG 30, 2024@12:32:08 AUTHOR: CLINICAL,DEVICE PRO EXP COSIGNER: URGENCY: STATUS: COMPLETED DOCUMENT IN [facility] SEE FULL REPORT IN [facility] SIGNATURE NOT REQUIRED SEE SIGNATURE IN [facility]ISTA [facility] ([employer] EKG) AUTO-INSTRUMENT DIAGNOSIS Procedure: [id number] 12 Lead ECG Release Status: Released Off-Line Verified Date Verified: Aug 30, 2024@12:32:03 91972.2 Ventricular Rate: 90 BPM 04810.3 Atrial Rate: 90 BPM 65534.4 P-R Interval: 158 ms 11749.5 QRS Duration: 80 ms 50773.6 Q-T Interval: 366 ms 85264 QTC Calculation(Bazett)447 ms 46307.12 Calculated P Sycamore: 67 degrees 84948.13 Calculated R [place]cam[place]: 37 degrees 79623.14 Calculated T [place]cam[place]: 11 degrees 208.1 Coded Diagnosis: NORMAL SINUS RHYTHM 208.1 Coded Diagnosis: NORMAL ECG Confirmed by Shane Macario ([id number]) on 08/30/2024 12:32:02 PM Administrative Closure: 08/30/2024 by: DEVICE PROXY SERVICE CLINICAL CLINICAL,DEVICE PROXY SERVICE CLINICAL,DEVICE PROXY SERVICE [facility]
--- OUTSIDE RECORDS SUMMARY | 2024-08-31 05:44 | XMS_ITS ---
Author Name [facility] ([place]) Organization [facility] ([place]) Address [address] [place] [address] Care Team Providers Care Infusion Nurse Name Role Phone YULISSA HENDERSON Primary Care [...] PLAN F Mar 24, 2014 PLAN F [id number] LUIS MANUEL PERDOMO PATIENT [facility] [place] [facility] PREFERRED PROVIDER ORGANIZAT ION (PPO) [facility] Sep 21, 2012 [id number] LUIS MANUEL PERDOMO PATIENT [employer] [facility] ([id number]) PRESCRIPT ION [id number] Sep 21, 2012 [id number] LUIS MANUEL PERDOMO PATIENT MEDICARE (WNR) MEDICARE (M) PART B Sep 21, 2012 PART B [id number] NOEMI PERDOMO PATIENT MEDICARE (WNR) MEDICARE (M) PART A Jan 22, 2011 PART A [id number] NOEMI PERDOMO PATIENT MEDICARE PART D (WNR) MEDICARE (M) PART D Mar 24, 2014 PART D [id number] LUIS MANUEL PERDOMO PATIENT Selected Encounter This section includes the information on record at OR for the Encounter. Date/Time Encounter Type Encounter Description Reason Pro vider Source Aug 31, 2024 09:44 AM Outpatient Encounter HB Nursing (RN / LP) IHE Encounter Template Text not used by OR Plan of Treatment: Future Appointments (+ 6 months) and Future Tests (+/- 45 days) The Plan of Treatment section includes future care activities for the patient from all OR treatmentfacilities. This section includes future appointments and [...] 08:00 AM AM[place]ATORY - [place]ONE [place] [facility] Sep 30, 2024 01:30 PM AMB[facility]ORY - SURGERY [place] [facility] Active, Pending, and Scheduled Orders This section includes a listing of several types of active, pending, and scheduled orders, including clinic medications orders, diagnostic test orders, procedure orders and consult orders; where thestart date of the order is 45 days before the date of the Encounter or 45 days after the date of the Encounter. The data comes from all [facility] facilities. Test Date/Time Test Type Test Details Facility Name Sep 13, 2024 01:33 PM Consult Order [facility] [place] [place] [facility] Cons [place] [facility] Lab Results: +/- 30 days of [...] Specimen Type: CAPILLARY Comment: Test performed by: [id number] Meter #: [id number] Ordering Provider: FRANCK TURNER Report Released Date/Time: Sep 09, 2024 12:33 PM Reporting Lab: [address] [address] Performing Lab: [address] [address] GLUCOSE-HAND MONITOR 116 mg/dL H Sep 09, 2024 06:07 AM [facility] GLUCOSE-HAND MONITOR CAPILLARY Specime n Type: CAPILLARY Comment: Test performed by: [id number] Meter #: [id number] Ordering Provider: FRANCK TURNER Report Released Date/Time: Sep 09, 2024 08:17 AM Reporting Lab: [address] [address] Performing Lab: [address] [address] GLUCOSE-HAND MONITOR 112 mg/dL H Sep 08, 2024 09:13 PM [facility] GLUCOSE-HAND MONITOR CAPILLARY Specime n Type: CAPILLARY Comment: Test performed by: [id number] Meter #: [id number] Ordering Provider: FRANCK TURNER Report Released Date/Time: Sep 08, 2024 09:31 PM Reporting Lab: [address] [address] Performing Lab: [address] [address] GLUCOSE-HAND MONITOR 107 mg/dL H Sep 08, 2024 03:49 PM [facility] GLUCOSE-HAND MONITOR CAPILLARY Specime n Type: CAPILLARY Comment: AAMIR RN notified Test performed by: [id number] Meter #: [id number] Ordering Provider: FRANCK TURNER Report Released Date/Time: Sep 08, 2024 04:33 PM Reporting Lab: [address] [address] Performing Lab: [address] [address] GLUCOSE-HAND MONITOR 162 mg/dL H Sep 08, 2024 11:43 AM [facility] GLUCOSE-HAND MONITOR CAPILLARY Specime n Type: CAPILLARY Comment: AAMIR RN notified Test performed by: [id number] Meter #: [id number] Ordering Provider: FRANCK TURNER Report Released Date/Time: Sep 08, 2024 12:03 PM Reporting Lab: [address] [address] Performing Lab: [address] [address] GLUCOSE-HAND MONITOR 133 mg/dL H Sep 08, 2024 06:13 AM [facility] GLUCOSE-HAND MONITOR CAPILLARY Specime n Type: CAPILLARY Comment: Test performed by: [id number] Meter #: [id number] Ordering Provider: FRANCK TURNER Report Released Date/Time: Sep 08, 2024 06:46 AM Reporting Lab: [address] [address] Performing Lab: [address] [address] GLUCOSE-HAND MONITOR 104 mg/dL H Sep 07, 2024 07:59 PM [facility] GLUCOSE-HAND MONITOR CAPILLARY Specime n Type: CAPILLARY Comment: Test performed by: [id number] Meter #: [id number] Ordering Provider: FRANCK TURNER Report Released Date/Time: Sep 07, 2024 09:05 PM Reporting Lab: [address] [address] Performing Lab: [address] [address] GLUCOSE-HAND MONITOR 107 mg/dL H Sep 07, 2024 04:39 PM [facility] GLUCOSE-HAND MONITOR CAPILLARY Specime n Type: CAPILLARY Comment: Test performed by: [id number] Meter #: [id number] Ordering Provider: FRANCK TURNER Report Released Date/Time: Sep 07, 2024 05:09 PM Reporting Lab: [address] [address] Performing Lab: [address] [address] GLUCOSE-HAND MONITOR 105 mg/dL H Sep 07, 2024 11:41 AM [facility] GLUCOSE-HAND MONITOR CAPILLARY Specime n Type: CAPILLARY Comment: Test performed by: [id number] Meter #: [id number] Ordering Provider: FRANCK TURNER Report Released Date/Time: Sep 07, 2024 12:41 PM Reporting Lab: [address] [address] Performing Lab: [address] [address] GLUCOSE-HAND MONITOR 144 mg/dL H -Sep 07, 2024 05:56 AM [facility] GLUCOSE-HAND MONITOR CAPILLARY Specime n Type: CAPILLARY Comment: Test performed by: [id number] Meter #: [id number] Ordering Provider: FRANCK TURNER Report Released Date/Time: Sep 07, 2024 06:31 AM Reporting Lab: [place] [phone] Performing Lab: [address] [address] GLUCOSE-HAND MONITOR 96 mg/dL -Sep 06, 2024 08:10 PM [facility] GLUCOSE-HAND MONITOR CAPILLARY Specime n Type: CAPILLARY Comment: Test performed by: [id number] Meter #: [id number] Ordering Provider: FRANCK TURNER Report Released Date/Time: Sep 06, 2024 08:52 PM Reporting Lab: [address] [address] Performing Lab: [address] [address] GLUCOSE-HAND MONITOR 124 mg/dL H Sep 06, 2024 04:27 PM [facility] GLUCOSE-HAND MONITOR CAPILLARY Specime n Type: CAPILLARY Comment: Test performed by: [id number] Meter #: [id number] Ordering Provider: FRANCK TURNER Report Released Date/Time: Sep 06, 2024 05:15 PM Reporting Lab: [place] [phone] Performing Lab: [address] [address] GLUCOSE-HAND MONITOR 107 mg/dL H -Sep 06, 2024 12:12 PM [facility] GLUCOSE-HAND MONITOR CAPILLARY Specime n Type: CAPILLARY Comment: Test performed by: [id number] Meter #: [id number] Ordering Provider: FRANCK TURNER Report Released Date/Time: Sep 06, 2024 12:29 PM Reporting Lab: [address] [address] Performing Lab: [address] [address] GLUCOSE-HAND MONITOR 181 mg/dL H Sep 06, 2024 06:13 AM [facility] GLUCOSE-HAND MONITOR CAPILLARY Specime n Type: CAPILLARY Comment: Test performed by: [id number] Meter #: [id number] Ordering Provider: FRANCK TURNER Report Released Date/Time: Sep 06, 2024 06:36 AM Reporting Lab: [place] [phone] Performing Lab: [place] [phone] GLUCOSE-HAND MONITOR 102 mg/dL H Sep 05, 2024 08:47 PM [facility] GLUCOSE-HAND MONITOR CAPILLARY Specime n Type: CAPILLARY Comment: Test performed by: [id number] Meter #: [id number] Ordering Provider: FRANCK TURNER Report Released Date/Time: Sep 06, 2024 02:13 AM Reporting Lab: [address] [address] Performing Lab: [address] [address] GLUCOSE-HAND MONITOR 103 mg/dL H Sep 05, 2024 04:40 PM [facility] GLUCOSE-HAND MONITOR CAPILLARY Specime n Type: CAPILLARY Comment: AAMIR RN notified Test performed by: [id number] Meter #: [id number] Ordering Provider: FRANCK TURNER Report Released Date/Time: Sep 05, 2024 05:11 PM Reporting Lab: [address] [address] Performing Lab: [address] [address] GLUCOSE-HAND MONITOR 113 mg/dL H Sep 05, 2024 12:06 PM [facility] GLUCOSE-HAND MONITOR CAPILLARY Specime n Type: CAPILLARY Comment: Test performed by: [id number] Meter #: [id number] Ordering Provider: FRANCK TURNER Report Released Date/Time: Sep 05, 2024 12:23 PM Reporting Lab: [address] [address] Performing Lab: [address] [address] GLUCOSE-HAND MONITOR 115 mg/dL H Sep 05, 2024 06:26 AM [facility] GLUCOSE-HAND MONITOR CAPILLARY Specime n Type: CAPILLARY Comment: AAMIR Correction Dose Test performed by: [id number] Meter #: [id number] Ordering Provider: FRANCK TURNER Report Released Date/Time: Sep 05, 2024 06:43 AM Reporting Lab: [address] [address] Performing Lab: [address] [address] GLUCOSE-HAND MONITOR 111 mg/dL H Sep 04, 2024 08:59 PM [facility] GLUCOSE-HAND MONITOR CAPILLARY Specime n Type: CAPILLARY Comment: AAMIR RN notified Test performed by: [id number] Meter #: [id number] Ordering Provider: FRANCK TURNER Report Released Date/Time: Sep 04, 2024 09:36 PM Reporting Lab: [address] [address] Performing Lab: [address] [address] GLUCOSE-HAND MONITOR 123 mg/dL H Sep 04, 2024 04:41 PM [facility] GLUCOSE-HAND MONITOR CAPILLARY Specime n Type: CAPILLARY Comment: AAMIR RN notified Test performed by: [id number] Meter #: [id number] Ordering Provider: FRANCK TURNER Report Released Date/Time: Sep 04, 2024 05:03 PM Reporting Lab: [address] [address] Performing Lab: [address] [address] GLUCOSE-HAND MONITOR 118 mg/dL H Sep 04, 2024 12:36 PM [facility] GLUCOSE-HAND MONITOR CAPILLARY Specime n Type: CAPILLARY Comment: AAMIR RN notified Test performed by: [id number] Meter #: [id number] Ordering Provider: FRANCK TURNER Report Released Date/Time: Sep 04, 2024 12:53 PM Reporting Lab: [place] [phone] Performing Lab: [place] [address] GLUCOSE-HAND MONITOR 129 mg/dL H 71-99 Sep 04, 2024 12:03 PM [facility] RESPIRATORY VIRUS PANEL (BIOFIRE) NASOPHARYN X Specimen Type: NASOPHARYNX Comment: ~For Test: RESPIRATORY VIRUS PANEL (BIOFIRE) ~ORDER READ BACK TO: FRANCK TURNER 09/04/24@11:30 Ordering Provider: FRANCK TURNER Report Released Date/Time: Sep 04, 2024 11:33 AM Reporting Lab: [place] [phone] Performing Lab: [place] [phone] ADENOVIRUS (BIOFIRE) Not Detected -Not D etected [...] -Not Detected Sep 04, 2024 06:55 AM [facility] MAGNESIUM PLASMA Specimen Type: PLASM A [...] Sep 03, 2024 11:10 AM Reporting Lab: [facility] [address] [address] Performing Lab: [facility] [address] [facility] [address] MAGNESIUM 1.8 mg/dL 1.6-2.6 Sep 04, 2024 06:55 AM [facility] PANEL 1 PLASMA Specimen Type: PLASM [...] Sep 03, 2024 11:10 AM Reporting Lab: [address] [address] Performing Lab: [address] [address] CREATININE 0.75 mg/dL 0.72-1.25 UREA NITROGEN 13 mg/dL 9-25 GLUCOSE 105 mg/dL H 74-100 SODIUM 128 mmol/L L 136-145 POTASSIUM 3.9 mmol/L 3.5-5.1 CHLORIDE 99 mmol/L 98-107 CO2 21 mmol/L L 22-29 CALCIUM 8.0 mg/dL L 8.4-10.2 ANION GAP 8 meq/L 3-19 eGFR (CKD-EPI) >90 Sep 04, 2024 06:02 AM [facility] GLUCOSE-HAND MONITOR CAPILLARY Specime n Type: CAPILLARY Comment: Test performed by: [id number] Meter #: [id number] Ordering Provider: FRANCK TURNER Report Released Date/Time: Sep 04, 2024 06:28 AM Reporting Lab: [address] [address] Performing Lab: [address] [address] GLUCOSE-HAND MONITOR 114 mg/dL H 71-99 Sep 03, 2024 05:19 PM [facility] GLUCOSE-HAND MONITOR CAPILLARY Specime n Type: CAPILLARY Comment: Test performed by: [id number] Meter #: [id number] Ordering Provider: FRANCK TURNER Report Released Date/Time: Sep 03, 2024 05:37 PM Reporting Lab: [address] [address] Performing Lab: [address] [address] GLUCOSE-HAND MONITOR 124 mg/dL H 71-99 Sep 03, 2024 04:41 PM [facility] GLUCOSE-HAND MONITOR CAPILLARY Specime n Type: CAPILLARY Comment: Test performed by: [id number] Meter #: [id number] Ordering Provider: FRANCK TURNER Report Released Date/Time: Sep 03, 2024 06:09 PM Reporting Lab: [address] [address] Performing Lab: [address] [address] GLUCOSE-HAND MONITOR 112 mg/dL H 71-99 Sep 03, 2024 01:35 PM [facility] URINE LYTES URINE Specimen Type : URINE Comment: ~Altered mental status with no identifiable cause Ordering Provider: FRANCK TURNER Report Released Date/Time: Sep 02, 2024 04:44 PM Reporting Lab: [place] [phone] Performing Lab: [address] [address] SODIUM 130 mmol/L POTASSIUM 47.6 mmol/L CHLORIDE 137 mmol/L Sep 03, 2024 01:35 PM [facility] CREATININE URINE Specimen Type: URINE Comment: ~Altered mental status with no identifiable cause Ordering Provider: FRANCK TURNER Report Released Date/Time: Sep 02, 2024 04:44 PM Reporting Lab: [address] [address] Performing Lab: [address] [address] CREATININE 150.9 mg/dL Sep 03, 2024 01:35 PM [facility] URINALYSIS WITH REFLEX TO CULTURE URINE Specimen Type: URINE Comment: ~Altered mental status with no identifiable cause Ordering Provider: FRANCK TURNER Report Released Date/Time: Sep 02, 2024 04:44 PM Reporting Lab: [address] [address] Performing Lab: [address] [address] URINE COLOR Yellow Colorless-Yellow APPEARANCE CLOUDY H [...] H 0-28 Sep 03, 2024 01:35 PM [facility] UREA NITROGEN URINE Specimen Type : URINE Comment: ~Altered mental status with no identifiable cause Ordering Provider: FRANCK TURNER Report Released Date/Time: Sep 02, 2024 04:44 PM Reporting Lab: [address] [address] Performing Lab: [address] [address] UREA NITROGEN 320 mg/dL Sep 03, 2024 01:35 PM [facility] OSMOLALITY URINE Specimen Type: URINE Comment: ~Altered mental status with no identifiable cause Ordering Provider: FRANCK TURNER Report Released Date/Time: Sep 02, 2024 04:44 PM Reporting Lab: [address] [address] Performing Lab: [address] [address] OSMOLALITY 522 mosm/kg 38-1400 Sep 03, 2024 11:58 AM [facility] GLUCOSE-HAND MONITOR CAPILLARY Specime n Type: CAPILLARY Comment: AAMIR RN notified Test performed by: [id number] Meter #: [id number] Ordering Provider: FRANCK TURNER Report Released Date/Time: Sep 03, 2024 12:15 PM Reporting Lab: [address] [address] Performing Lab: [address] [address] GLUCOSE-HAND MONITOR 135 mg/dL H 71-99 Sep 03, 2024 07:09 AM [facility] GLUCOSE-HAND MONITOR CAPILLARY Specime n Type: CAPILLARY Comment: Test performed by: [id number] Meter #: [id number] Ordering Provider: FRANCK TURNER Report Released Date/Time: Sep 03, 2024 07:26 AM Reporting Lab: [address] [address] Performing Lab: [address] [address] GLUCOSE-HAND MONITOR 120 mg/dL H 71-99 Sep 03, 2024 07:05 AM [facility] CBC/PLT BLOOD Specimen Type: BLOOD No comment entered. Ordering Provider: FRANCK TURNER Report Released Date/Time: Sep 02, 2024 04:29 PM Reporting Lab: [address] [address] Performing Lab: [address] [address] WBC 6.9 10*3/uL 5.0-10.0 RBC 3.48 10*6/uL L 4.6-6.2 HGB 9.5 g/dL L 14.0-18.0 HCT 29.1 L 42.0-52.0 MCV 83.6 fL 80.0-94.0 MCH 27.3 pg 27.0-31.0 MCHC 32.6 g/dL 32.0-36.0 PLT 258 10*3/uL 150-450 MPV 10.3 fL 9.0-13.1 RDW 14.8 11.0-16.0 NRBC 0.0 0.0-0.0 Sep 03, 2024 07:05 AM [facility] MAGNESIUM PLASMA Specimen Type: PLASM A [...] Sep 02, 2024 04:29 PM Reporting Lab: [address] [address] Performing Lab: [address] [address] MAGNESIUM 1.7 mg/dL 1.6-2.6 Sep 03, 2024 07:05 AM [facility] GLYCOHEMOGLOBIN BLOOD Specimen Type: BLOOD Comment: Prediabetes: 5.7%-6.4% Diabetes: >= 6.5% [facility] guidelines for A1c interpretation: Glycemic control targets are based on Shared Decision Making between clinicians and patients. Criteria used to establish an A1c target recommendation can be found at https://www.[place].gov/qualityandpatientsafety/ and include the use of result accuracy [...] 8.73 and 9.27. Ref: https://ngsp.org/CAPdata.asp. The in-house [employer]Mel[employer] #usemelon D-100 analyzer has a historical CV <= 2%. Contact the laboratory for further performance characteristics of this assay. Ordering Provider: FRANCK TURNER Report Released Date/Time: Sep 02, 2024 04:29 PM Reporting Lab: [facility] [address] [facility] [address] Performing Lab: [address] [address] GLYCOHEMOGLOBIN 5.6 4.4-5.6 Sep 03, 2024 07:05 AM [facility] PANEL 1 PLASMA Specimen Type: PLASM [...] decrease <15 G5 Kidney failure Ordering Provider: RFANCK TURNER Report Released Date/Time: Sep 02, 2024 04:29 PM Reporting Lab: [address] [address] Performing Lab: [place] [phone] CREATININE 0.82 mg/dL 0.72-1.25 UREA NITROGEN 12 mg/dL 9-25 GLUCOSE 109 mg/dL H 74-100 SODIUM 129 mmol/L L 136-145 POTASSIUM 4.2 mmol/L 3.5-5.1 CHLORIDE 99 mmol/L 98-107 CO2 21 mmol/L L 22-29 CALCIUM 8.1 mg/dL L 8.4-10.2 ANION GAP 9 meq/L 3-19 eGFR (CKD-EPI) 90 Sep 03, 2024 07:05 AM [facility] OSMOLALITY SERUM Specimen Type: SERUM No comment entered. Ordering Provider: FRANCK TURNER Report Released Date/Time: Sep 02, 2024 04:44 PM Reporting Lab: [address] [address] Performing Lab: [address] [address] OSMOLALITY 271 mosm/kg L 280-300 Sep 02, 2024 08:15 PM [facility] GLUCOSE-HAND MONITOR CAPILLARY Specime n Type: CAPILLARY Comment: AAMIR DEXTER notified Test performed by: [id number] Meter #: [id number] Ordering Provider: FRANCK TURNER Report Released Date/Time: Sep 02, 2024 08:57 PM Reporting Lab: [address] [address] Performing Lab: [address] [address] GLUCOSE-HAND MONITOR 126 mg/dL H 71-99 Sep 02, 2024 06:10 PM [facility] MRSA SURVL NARES DNA NARES Specime n [...] Sep 02, 2024 05:12 PM Reporting Lab: [address] [address] Performing Lab: [address] [address] MRSA SURVL NARES DNA Negative Negative Sep 02, 2024 05:36 PM [facility] GLUCOSE-HAND MONITOR CAPILLARY Specime n Type: CAPILLARY Comment: Test performed by: [id number] Meter #: [id number] Ordering Provider: FRANCK TURNER Report Released Date/Time: Sep 02, 2024 05:53 PM Reporting Lab: [address] [address] Performing Lab: [address] [address] GLUCOSE-HAND MONITOR 127 mg/dL H 71-99 Aug 29, 2024 10:04 PM [facility] URINALYSIS WITH REFLEX TO CULTURE URINE Specimen Type: URINE Comment: ~For Test: URINALYSIS WITH REFLEX TO CULTURE ~REORDER Ordering Provider: FELISA COLE Report Released Date/Time: Aug 29, 2024 09:36 PM Reporting Lab: [address] [address] Performing Lab: [address] [address] URINE COLOR Yellow Colorless-Yellow APPEARANCE Clear Clear [...] /[LPF] 0-28 Aug 29, 2024 08:32 PM [facility] HIGH SENSITIVITY TROPONIN I PLASMA Specimen Ty [...] Aug 29, 2024 07:55 PM Reporting Lab: [address] [address] Performing Lab: [address] [address] HIGH SENSITIVITY TROPONIN I 7 4-35 Aug 29, 2024 08:32 PM [facility] CBC/PLT BLOOD Specimen Type: BLOOD No comment entered. Ordering Provider: FELISA COLE Report Released Date/Time: Aug 29, 2024 07:55 PM Reporting Lab: [address] [address] Performing Lab: [address] [address] WBC 11.2 10*3/uL H 5.0-10.0 RBC 3.97 10*6/uL L 4.6-6.2 HGB 10.9 g/dL L 14.0-18.0 HCT 33.5 L 42.0-52.0 MCV 84.4 fL 80.0-94.0 MCH 27.5 pg 27.0-31.0 MCHC 32.5 g/dL 32.0-36.0 PLT 230 10*3/uL 150-450 MPV 10.2 fL 9.0-13.1 RDW 14.6 11.0-16.0 NRBC 0.0 0.0-0.0 Aug 29, 2024 08:32 PM [facility] PANEL 5 PLASMA Specimen Type: PLASM [...] Aug 29, 2024 07:55 PM Reporting Lab: [address] [address] Performing Lab: [address] [address] CREATININE 0.85 mg/dL 0.72-1.25 UREA NITROGEN 15 [...] 08, 2024 ADVANCE DIRECTIVE DISCUSSION RUBIN [facility] Radiology Reports: +/- 30 days of [...] BRAIN W & W/O: LUIS MANUEL PERDOMO [id number] -1945 M Exm Date: SEP 06, 2024@13:40 Req Phys: FRANCK TURNER [facility] Loc: 5-MED/TEL/09-06-2024@19:09 Img Loc: [facility] Service: [place] [address] (Case [id number] COMPLETE) MRI BRAIN W & W/O (MRI Detailed) CPT:03107 Contrast Media : Gadolinium Reason for Study: SEE CLINICAL HISTORY Pharmaceutical: GADOTERIDOL 279.3MG/ML 20ML INJ, 19ml Clinical History: MRI Screening (Required): IMPLANTED DEVICE DOCUMENTATION IMPLANTED DEVICE DOCUMENTATION NOT FOUND Does the have any Cardiac Implants? None Does the [place] have any implanted stimulators? None Does the [place] have cochlear implants? No Does the [place] have Cerebral aneurysm clip(s)? I don't know Does the [place] have any shrapnel? I don't know If yes, where in your body? Please list other implants not listed above: MRI table has a weight limit of 551 lbs. Peosta's Weight: *212 lb [96.16 kg] (09/04/2024 05:19) Is this patient claustrophobic?: No REASON FOR EXAM:MULTIPLE SCLEROSIS (indicate suspected or established) PERTINENT PATIENT HISTORY: MS c/f for flare Risk factors for GADOLINIUM NEPHROGENIC SYSTEMIC SCLEROSIS: Report Status: Verified Date Reported: SEP 06, 2024 Date Verified: SEP 06, 2024 Photoengraving Apprentice E-Sig: Report: MRI brain without and with [...] Staff: ARCENIO LEYVA, Staff Radiologist Verified by fashion patternmaker for ARCENIO LEYVA /ARCENIO AVILA-D [facility] Sep 06, 2024 01:40 PM MRI C SPINE W & W/ O CONTRAST(FURTHER SEQUENCES): LUIS MANUEL PERDOMO [id number] -1945 M Exm Date: SEP 06, 2024@13:40 Req Phys: FRANCK TURNER Loc: 5-MED/TEL/09-07-2024@06:42 Img Loc: [facility] Service: [place] [address] (Case [id number] COMPLETE) MRI C SPINE W & W/O CONTRAST(FURT(MRI Detailed) CPT:29250 Contrast Media : Gadolinium Reason for Study: [...] the have cochlear implants? No Does the have Cerebral aneurysm clip(s)? I don't know Does the have any shrapnel? I don't know If yes, where in your body? Please list other implants not listed above: MRI table has a weight limit of 551 lbs. Peosta's Weight: *212 lb [96.16 kg] (09/04/2024 05:19) Is this patient claustrophobic?: No REASON FOR EXAM: MULTIPLE SCLEROSIS (indicate suspected or established) PERTINENT PATIENT HISTORY: MS c/f flare Risk factors for GADOLINIUM NEPHROGENIC SYSTEMIC SCLEROSIS: Report Status: Verified Date Reported: SEP 07, 2024 Date Verified: SEP 07, 2024 Photoengraving Apprentice E-Sig: Report: EXAMINATION: MRI OF THE CERVICAL [...] Interpreting Staff: HUANG TAI Radiologist Verified by fashion patternmaker for HUANG TAI /HUANG WHEATLEYSav [facility] Sep 03, 2024 10:45 AM CHEST SINGLE(1) EW: LUIS MANUEL PERDOMO [id number] -1945 M Exm Date: SEP 03, 2024@10:45 Req Phys: FRANCK TURNER Pat Loc: 5-MED/TEL/09-03-2024@10:56 Img Loc: [facility] Service: [place] [address] (Case [id number] COMPLETE)CHEST SINGLE(1) VIEW (RAD Detailed) CPT:90819 Proc Modifiers : PORTABLE EXAM Reason for Study: Eval volume status Clinical History: Report Status: Verified Date Reported: SEP 03, 2024 Date Verified: SEP 03, 2024 Photoengraving Apprentice E-Sig: Report: EXAMINATION: SINGLE VIEW CHEST CLINICAL [...] Interpreting Staff: HUANG TAI Radiologist Verified by fashion patternmaker for HUANG TAI /[facility] Aug 29, 2024 08:[address] HEAD W/O CONT: LUIS MANUEL PERDOMO [id number] -1945 M Exm Date: AUG 29, 2024@20:28 Req Phys: FELISA COLE Loc: ED/4P-12A (Req'g Loc) Img Loc: CT SCAN Service: Unknown [place] [id number] (Case [id number] COMPLETE) CT HEAD W/O CONT (CT Detailed) CPT:22365 Reason for Study: SEE CLINICAL HISTORY Clinical History: REASON FOR SEND OUT: ATTENDING PHYSICIAN NAME: New transient neurological s/s - suspected TIA HISTORY/REASON FOR EXAM: confusion Report Status: Verified Date Reported: AUG 29, 2024 Date Verified: AUG 29, 2024 Photoengraving Apprentice E-Sig: Report: HISTORY confusion COMPARISON No prior [...] Staff: ABDIRAHMAN CROW, Staff Physician Verified by fashion patternmaker for ABDIRAHMAN CROW /[facility] Pathology Reports: +/- 30 days of the [...] PORT: Reporting Lab: [facility] [CLIA# [id number]] [address] [place], [place] [id number] Accession [UID]: [id number] [[id number]] Received: Sep 03, 2024@14:02 Collection sample: URINE, [...] Report Performed By: [facility] [CLIA# [id number]] [address] [place] [address] MAGDY [facility] Sep 02, 2024 06:00 PM LR MICROBIOLOGY RE PORT: Reporting Lab: [facility] [CLIA# [id number]] [address] [place] [address] Accession [UID]: [id number] [[id number]] Received: Sep 02, 2024@18:07 Collection sample: BLD CULTURE BOTTLES Collection date: Sep 02, 2024 18:00 Site/Specimen: BLOOD Provider: FRANCK TURNER Comment on specimen: L HAND Test(s) ordered: CULTURE, BLOOD................ completed: Sep 08, 2024 * BACTERIOLOGY FINAL REPORT => Sep 08, 2024 08:25 TECH CODE: [id number] Bacteriology Remark(s): Blood culture status=NO GROWTH (unless notified otherwise) 09/03/2024 AEROBIC: NO GROWTH ANAEROBIC: NO GROWTH =--=--=--=--=--=--=--=--=--=-- =--=--=--=--=--=--=--=--=--=-- =--=--=--=--=--=-- Performing Laboratory: Bacteriology Report Performed By: [facility] [CLIA# [id number]] [address] [place] [id number] MAGDY CALABRESE [facility] Aug 29, 2024 10:18 PM LR MICROBIOLOGY RE PORT: Reporting Lab: [facility] [CLIA# [id number]] [address] [place] [id number] Accession [UID]: [id number] [[id number]] Received: Aug 29, 2024@22:18 Collection sample: URINE, CLEAN CATCH Collection date: Aug 29, 2024 22:18 Site/Specimen: URINE Provider: FELISA COLE Test(s) ordered: CULTURE, URINE................ completed: Aug 31, 2024 09:51 * BACTERIOLOGY FINAL REPORT => Aug 31, 2024 09:51 TECH CODE: [id number] Bacteriology Remark(s): NO GROWTH 08/30/2024 <10,000 CFU/ML. 08/31/2024 =--=--=--=--=--=--=--=--=--=-- =--=--=--=--=--=--=--=--=--=-- =--=--=--=--=--=-- Performing Laboratory: Bacteriology Report Performed By: [facility] [CLIA# [id number]] [address] [place] [id number] MAGDY CALABRESE [facility] Encounter Notes: All associated encounter notes [...] 12:39 /es/ Karen Squires, MSN, RN, CNL [facility] Lottery Office Manager/Nurse Lap Cutter Truer Operator 09/16/2024 10:05 /es/ ART DAVIS Division Plant Engineer for BUNNY RAWLS --- Original Document --- 08/31/24 [facility] HISTOLOGY TEACHER NOTE: DATE OF ADMISSION TO 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 Toileting: incontinence, wears depends, assist with clothing and cleanup. Bathing: assist seated Prosthetics/equipment/devices: manual w/c, VA ramp, threshold ramp at front door, non-VA hospital bed with memory foam mattress and upper half bed rails, FWW, director organizational, leg soda worker, lift chair, bedside table, stationary exercise pedaler, non-VA bariatric rollator, x1 grab bar on doorframe, x1 grab bar outside shower, x3 grab bars inside shower, fall mat, bed rail, , BSC. On Feb ordered handheld shower, standard F22 rollator, ROHO [id number] mid profile cushion Living arrangements: with spouse Mental Status please see dated 03/04/24 Behavioral concerns-none Patient safety concerns: fall risk Emergency Preparedness Priority Code: 3-LOW Prognosis: fair CODE STATUS: FULL PROBLEM: Impaired physical mobility related to fatigue and weakness LLE with MS technician terminal and repeater goals developed further with Peosta include Peosta do ROM so no further decline in neuromuscular status Chronic will manage until discharge TARGET DATE FOR GOAL: Within the next quarter unless otherwise specified STATUS: Follows an outside neurologist for MS-he is limited in his ability to ambulate at this time due to his MS and a fracture- RN INTERVENTIONS for routine visits: Monitor blood pressure, pulse, respiration every visit. RN Educate Peosta on signs/symptoms worsening MS as needed RN Monitor medication use every visit. RN Educate / caregiver on bedrest for pain/fatigue during exacerbation as needed-RN Educate on safety/fall prevention as needed RN PROBLEM: DIABETES GOALS: [facility] goals developed further with include: Peosta will have HgbA1c level 8 CHRONIC WILL MANAGE UNTIL DISCHARGE TARGET DATE FOR GOAL: Within the next quarter unless otherwise specified. STATUS: A1C 02/06/24 6.4 RN INTERVENTIONS for routine visits: Monitor for symptoms of hypoglycemia and hyperglycemia. RN Educate /caregiver on how to manage episodes of hypo/hyperglycemia as needed. RN Monitor medication compliance. RN Reinforce recommended diet with Peosta/caregiver. RN Collect labs as ordered. Nurse Encourage /caregiver to perform blood sugar checks as recommended. 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 of new or uncontrolled pain. RN Assess for pain at home visits. RN Encourage medication compliance. RN Encourage use of nonpharmacological pain methods. RN PROBLEM: HYPERTENSION Stated goal: technician terminal and repeater goals developed further with include: BP to be less than 140/90 Chronic will manage until discharge. TARGET DATE FOR GOAL: Within the next quarter unless otherwise specified. STATUS: New patient to [facility]-will [...] Reinforce Recommended Diet. RN/RD PROBLEM: MEDICATION ADHERENCE/MANAGEMENT technician terminal and repeater goals developed further with Peosta include: Will take medications with 90 - 100% accuracy as evidenced by one or more of the following: medminder use, caregiver interview, medication list, ordering pattern, HBPC observation. /Caregiver will report any adverse reactions, side effects, or concerns to [facility] relative to medication issues. TARGET DATE FOR GOAL: Within the next quarter, unless otherwise specified. Chronic- Will manage until discharge. STATUS: new patient -will monitor for compliance- RN INTERVENTIONS for routine visits: Remind /Caregiver to report any OTC use to [facility]. RN Monitor medication adherence every visit. RN Educate Peosta/caregiver on how to reorder medications as needed. [...] PT exercises for the next 6 weeks CHCF goals developed further with Peosta include Patient's care needs will be coordinated within several agencies TARGET DATE FOR GOAL: Within the next quarter unless otherwise specified STATUS: Vern jessica for BABY SITTER/HM program and Yg for PT-FH RN INTERVENTIONS for routine visits: Patient followed by Home Health Agency: this info is found on the consult for home health Monitor services provided by [facility] . RN Monitor for need for any equipment, supplies or specialty services provided by [facility]. RN Coordination of information between the [facility] and [facility] PACT. RN PROBLEM: ADVANCE DIRECTIVES/LIFE PLANNING Peosta stated goal: I will think about doing an advance directive. technician terminal and repeater goals developed further with Peosta include: Completing advance directives TARGET DATE: Quarterly STATUS: None on file at this time. Advance Directive?No Yes on file in CPRS Living Will?No Yes on file in CPRS Durable Power of Informatica Developer for Health Care? No/Yes Who? Full name and phone # INTERVENTIONS: Provide education and ongoing review of Advance Directives. SW Assist patient in completion of new Advance Directive if desired. SW PROBLEM: LONG-TERM CARE PLANNING stated goal: I wish to stay home. CHCF goals developed further with include: STATUS: Peosta lives at home with his . TARGET DATE: Quarterly INTERVENTIONS: said she will care for as long as she can, but placement may be needed in the future. Assist Peosta and caregiver/medical decision maker in discussing life plans in relation to needs and available supports/services. SW Provide options of care and assist with any placement issues. SW HEALTH MAINTENANCE PROBLEM: SAFETY ISSUE - POTENTIAL FOR INJURY FROM FALLS GOALS: 1. Peosta will have #1 no more than one [...] facility that he is currently admitted to- /rosette/ LYNN ALCOCER RN Signed: 08/31/2024 09:47 Receipt Acknowledged By: 08/31/2024 10:49 /es/ Jania Jimenez, Pharm.D., BCACP, BCGP Pharmacist for DONNA SHOOK 08/31/2024 10:30 /es/ Rosemarie Bolivar, RD, LD Clinical Dietitian 08/31/2024 10:27 /es/ SOPHIA ARIAS PSYCHOLOGIST 08/31/2024 10:34 /es/ JOSHUA HILL 09/01/2024 08:31 /es/ SRINIVAS HUFFMAN, PT, DPT PHYSICAL THERAPIST, [facility] 08/31/2024 10:35 /es/ Aarti Villanueva, MSN, MEDICAL BILLING SUPERVISOR Nurse Practitioner, [facility] for YULISSA Oconnor BEATRIZ 08/31/2024 10:49 /es/ JAMES ARMSTRONG,JAMES RUBI-CDD [facility] Aug 31, 2024 09:44 AM HB DISCHARGE NOTE: LOCAL TITLE: HBPC HISTOLOGY TEACHER NOTE STANDARD TITLE: [facility] DISCHARGE NOTE DATE OF NOTE: AUG 31, 2024@09:44 ENTRY DATE: AUG 31, 2024@09:44:39 AUTHOR: LYNN ALCOCER EXP COSIGNER: URGENCY: STATUS: COMPLETED HB HISTOLOGY TEACHER NOTE Has ADDENDA DATE OF ADMISSION TO 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 Toileting: incontinence, wears depends, assist with clothing and cleanup. Bathing: assist seated Prosthetics/equipment/devices: manual w/c, VA ramp, threshold ramp at front door, non-VA hospital bed with memory foam mattress and upper half bed rails, FWW, director organizational, leg soda worker, lift chair, bedside table, stationary exercise pedaler, non-VA bariatric rollator, x1 grab bar on doorframe, x1 grab bar outside shower, x3 grab bars inside shower, fall mat, bed rail, SW, BSC. On Feb ordered handheld shower, standard F22 rollator, ROHO [id number] mid profile cushion Living arrangements: with spouse Mental Status please see dated 03/04/24 Behavioral concerns-none Patient safety concerns: fall risk Emergency Preparedness Priority Code: 3-LOW Prognosis: fair CODE STATUS: FULL PROBLEM: Impaired physical mobility related to fatigue and weakness LLE with MS CHCF goals developed further with Peosta include Peosta do ROM so no further decline in [...] prevention as needed RN PROBLEM: DIABETES GOALS: technician terminal and repeater goals developed further with Peosta include: Peosta will have HgbA1c level 8 CHRONIC WILL MANAGE UNTIL DISCHARGE TARGET DATE FOR GOAL: Within the next quarter unless otherwise specified. STATUS: A1C 02/06/24 6.4 RN INTERVENTIONS for routine visits: Monitor for symptoms of hypoglycemia and hyperglycemia. RN Educate /caregiver on how to manage episodes of hypo/hyperglycemia as needed. RN Monitor medication compliance. RN Reinforce recommended diet with Peosta/caregiver. RN Collect labs as ordered. Nurse Encourage /caregiver to perform blood sugar checks as recommended. 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 of new or uncontrolled pain. RN Assess for pain at home visits. RN Encourage medication compliance. RN Encourage use of nonpharmacological pain methods. RN PROBLEM: HYPERTENSION Stated goal: CHCF goals developed further with Peosta include: BP to be less than 140/90 Chronic will manage until discharge. TARGET DATE FOR GOAL: Within the next quarter unless otherwise specified. STATUS: New patient to [facility]-will monitor his BP RN INTERVENTIONS for routine visits: Monitor blood pressure, pulse, respiration every visit. RN Educate Peosta on signs/symptoms of high blood as needed. RN Monitor and report to provider any signs/symptoms of high blood pressure ( headaches, dizziness, chest pain, peripheral edema, blurred vision, diminished urine output ,nausea, vomiting ). RN Monitor medication use every visit. RN Reinforce Recommended Diet. RN/RD PROBLEM: MEDICATION ADHERENCE/MANAGEMENT technician terminal and repeater goals developed further with Peosta include: Will take medications with 90 - 100% accuracy as evidenced by one or more of the following: medminder use, caregiver interview, medication list, ordering pattern, HBPC observation. /Caregiver will report any adverse reactions, side effects, or concerns to [facility] relative to medication issues. TARGET DATE FOR GOAL: Within the next quarter, unless otherwise specified. Chronic- Will manage until discharge. STATUS: new patient -will monitor for compliance- RN INTERVENTIONS for routine visits: Remind /Caregiver to report any OTC use to [facility]. RN Monitor medication adherence every [...] PT exercises for the next 6 weeks technician terminal and repeater goals developed further with include Patient's care needs will be coordinated within several agencies TARGET DATE FOR GOAL: Within the next quarter unless otherwise specified STATUS: Vern jessica for BABY SITTER/HM program and Yg for PT-FH RN INTERVENTIONS for routine visits: Patient followed by Home Health Agency: this info is found on the consult for home health Monitor services provided by Home Health Agency . RN Monitor for need for any equipment, supplies or specialty services provided by [facility]. RN Coordination of information between the Home Health Agency and [facility] PACT. RN PROBLEM: ADVANCE DIRECTIVES/LIFE PLANNING Peosta stated goal: I will think about doing an advance directive. CHCF goals developed further with Peosta include: Completing advance directives TARGET DATE: Quarterly STATUS: None on file at this time. Advance Directive?No Yes on file in CPRS Living Will?No Yes on file in CPRS Durable Power of Informatica Developer for Health Care? No/Yes Who? Full name and phone # INTERVENTIONS: Provide education and ongoing review of Advance Directives. SW Assist patient in completion of new Advance Directive if desired. SW PROBLEM: LONG-TERM CARE PLANNING Peosta stated goal: I wish to stay home. CHCF goals developed further with Peosta include: STATUS: lives at home with his . TARGET DATE: Quarterly INTERVENTIONS: said she will care for Peosta as long as she can, but placement may be needed in the future. Assist and caregiver/medical decision maker in discussing life [...] for DONNA SHOOK 08/31/2024 10:30 /es/ Rosemarie Bolivar, RD, LD Clinical Dietitian 08/31/2024 10:27 /es/ SOPHIA ARIAS PSYCHOLOGIST 08/31/2024 10:34 /es/ JOSHUA HILL 09/01/2024 08:31 /es/ SRINIVAS HUFFMAN, PT, DPT PHYSICAL THERAPIST, [facility] 08/31/2024 10:35 /es/ Aarti Villanueva, MSN, MEDICAL BILLING SUPERVISOR Nurse Practitioner, [facility] for YULISSA HENDERSON 08/31/2024 10:49 /es/ JAMES HAWTHORNE 08/31/2024 ADDENDUM STATUS: COMPLETED PLEASE REMOVE FROM [facility] - ANTICIPATED INSTITUTIONALIZATION /rosette/ JAMES HAWTHORNE Signed: 08/31/2024 10:49 Receipt Acknowledged By: 08/31/2024 12:39 /es/ Karen Squires, MSN, RN, CNL HB Lottery Office Manager/Nurse Lap Cutter Truer Operator * AWAITING SIGNATURE * BUNNY RAWLS EDITH F [place]-CDD [facility]
--- OUTSIDE RECORDS SUMMARY | 2024-09-01 20:00 | XMS_ITS | Encounter Summary ---
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 Name Role Phone YULISSA HENDERSON [...] PLAN F Mar 24, 2014 PLAN F [id number] LUIS MANUEL PERDOMO PATIENT [facility] [place] BLUECARD PREFERRED PROVIDER ORGANIZAT ION (PPO) [facility] SLE Sep 21, 2012 [id number] LUIS MANUEL PERDOMO PATIENT [employer] ([id number]) PRESCRIPT ION WL3A Sep 21, 2012 [id number] [phone] LUIS MANUEL PERDOMO PATIENT MEDICARE (WNR) MEDICARE (M) PART B Sep 21, 2012 PART B [id number] [id number] NOEMI PERDOMO PATIENT MEDICARE (WNR) MEDICARE (M) PART A Jan 22, 2011 PART A [id number] NOEMI PERDOMO PATIENT MEDICARE PART D (WNR) MEDICARE (M) PART D Mar 24, 2014 PART D [id number] LUIS MANUEL PERDOMO PATIENT Selected Encounter This section includes the information on record at [place] for the Encounter. Date/Time Encounter Type Encounter Description Reason Pro vider Source Sep 02, 2024 12:00 AM Outpatient Encounter EVENT (HISTORICAL) IHE Encounter Template Text not used by [...] 08:00 AM [facility] - [facility]ONE [facility] [facility] Sep 30, 2024 01:30 PM AM[facility]ORY - SURGERY [place] [facility] Active, Pending, and Scheduled Orders This [...] Sep 13, 2024 01:33 PM Consult Order [facility] [facility] Cons Sole Filler's Choice [facility] Lab Results: +/- 30 days [...] Sep 09, 2024 12:16 PM [facility] GLUCOSE-HAND MONITOR CAPILLARY Specimen Type: CAPILLARY Comment: Test performed by: [id number] Meter #: [id number] Ordering Provider: FRANCK TURNER Report Released Date/Time: Sep 09, 2024 12:33 PM Reporting Lab: [address] [address] Performing Lab: [address] [address] GLUCOSE-HAND MONITOR 116 mg/dL H Sep 09, 2024 06:07 AM [facility] GLUCOSE-HAND MONITOR CAPILLARY Specime n Type: CAPILLARY Comment: Test performed by: [id number] Meter #: [id number] Ordering Provider: FRANCK TURNER Report Released Date/Time: Sep 09, 2024 08:17 AM Reporting Lab: [address] [address] Performing Lab: [address] [address] GLUCOSE-HAND MONITOR 112 mg/dL H Sep 08, 2024 09:13 PM [facility] GLUCOSE-HAND MONITOR CAPILLARY Specime n Type: CAPILLARY Comment: Test performed by: [id number] Meter #: [id number] Ordering Provider: FRANCK TURNER Report Released Date/Time: Sep 08, 2024 09:31 PM Reporting Lab: [address] [address] Performing Lab: [address] [address] GLUCOSE-HAND MONITOR 107 mg/dL H Sep 08, 2024 03:49 PM [facility] GLUCOSE-HAND MONITOR CAPILLARY Specime n Type: CAPILLARY Comment: AAMIR RN notified Test performed by: [id number] Meter #: [id number] Ordering Provider: FRANCK TURNER Report Released Date/Time: Sep 08, 2024 04:33 PM Reporting Lab: [address] [address] Performing Lab: [address] [address] GLUCOSE-HAND MONITOR 162 mg/dL H Sep 08, 2024 11:43 AM [facility] GLUCOSE-HAND MONITOR CAPILLARY Specime n Type: CAPILLARY Comment: AAMIR RN notified Test performed by: [id number] Meter #: [id number] Ordering Provider: FRANCK TURNER Report Released Date/Time: Sep 08, 2024 12:03 PM Reporting Lab: [address] [address] Performing Lab: [address] [address] GLUCOSE-HAND MONITOR 133 mg/dL H Sep 08, 2024 06:13 AM [facility] GLUCOSE-HAND MONITOR CAPILLARY Specime n Type: CAPILLARY Comment: Test performed by: [id number] Meter #: [id number] Ordering Provider: FRANCK TURNER Report Released Date/Time: Sep 08, 2024 06:46 AM Reporting Lab: [address] [address] Performing Lab: [address] [address] GLUCOSE-HAND MONITOR 104 mg/dL H Sep 07, 2024 07:59 PM [facility] GLUCOSE-HAND MONITOR CAPILLARY Specime n Type: CAPILLARY Comment: Test performed by: [id number] Meter #: [id number] Ordering Provider: FRANCK TURNER Report Released Date/Time: Sep 07, 2024 09:05 PM Reporting Lab: [address] [address] Performing Lab: [address] [address] GLUCOSE-HAND MONITOR 107 mg/dL H Sep 07, 2024 04:39 PM [facility] GLUCOSE-HAND MONITOR CAPILLARY Specime n Type: CAPILLARY Comment: Test performed by: [id number] Meter #: [id number] Ordering Provider: FRANCK TURNER Report Released Date/Time: Sep 07, 2024 05:09 PM Reporting Lab: [address] [address] Performing Lab: [address] [address] GLUCOSE-HAND MONITOR 105 mg/dL H Sep 07, 2024 11:41 AM [facility] GLUCOSE-HAND MONITOR CAPILLARY Specime n Type: CAPILLARY Comment: Test performed by: [id number] Meter #: [id number] Ordering Provider: FRANCK TURNER Report Released Date/Time: Sep 07, 2024 12:41 PM Reporting Lab: [address] [address] Performing Lab: [address] [address] GLUCOSE-HAND MONITOR 144 mg/dL H -Sep 07, 2024 05:56 AM [facility] GLUCOSE-HAND MONITOR CAPILLARY Specime n Type: CAPILLARY Comment: Test performed by: [id number] Meter #: [id number] Ordering Provider: FRANCK TURNER Report Released Date/Time: Sep 07, 2024 06:31 AM Reporting Lab: [place] [phone] Performing Lab: [place] [phone] GLUCOSE-HAND MONITOR 96 mg/dL Sep 06, 2024 08:10 PM [facility] GLUCOSE-HAND MONITOR CAPILLARY Specime n Type: CAPILLARY Comment: Test performed by: [id number] Meter #: [id number] Ordering Provider: FRANCK TURNER Report Released Date/Time: Sep 06, 2024 08:52 PM Reporting Lab: [address] [address] Performing Lab: [address] [address] GLUCOSE-HAND MONITOR 124 mg/dL H Sep 06, 2024 04:27 PM [facility] GLUCOSE-HAND MONITOR CAPILLARY Specime n Type: CAPILLARY Comment: Test performed by: [id number] Meter #: [id number] Ordering Provider: FRANCK TURNER Report Released Date/Time: Sep 06, 2024 05:15 PM Reporting Lab: [address] [address] Performing Lab: [address] [address] GLUCOSE-HAND MONITOR 107 mg/dL H Sep 06, 2024 12:12 PM [facility] GLUCOSE-HAND MONITOR CAPILLARY Specime n Type: CAPILLARY Comment: Test performed by: [id number] Meter #: [id number] Ordering Provider: FRANCK TURNER Report Released Date/Time: Sep 06, 2024 12:29 PM Reporting Lab: [address] [address] Performing Lab: [address] [address] GLUCOSE-HAND MONITOR 181 mg/dL H Sep 06, 2024 06:13 AM [facility] GLUCOSE-HAND MONITOR CAPILLARY Specime n Type: CAPILLARY Comment: Test performed by: [id number] Meter #: [id number] Ordering Provider: FRANCK TURNER Report Released Date/Time: Sep 06, 2024 06:36 AM Reporting Lab: [address] [address] Performing Lab: [address] [address] GLUCOSE-HAND MONITOR 102 mg/dL H Sep 05, 2024 08:47 PM [facility] GLUCOSE-HAND MONITOR CAPILLARY Specime n Type: CAPILLARY Comment: Test performed by: [id number] Meter #: [id number] Ordering Provider: FRANCK TURNER Report Released Date/Time: Sep 06, 2024 02:13 AM Reporting Lab: [address] [address] Performing Lab: [address] [address] GLUCOSE-HAND MONITOR 103 mg/dL H Sep 05, 2024 04:40 PM [facility] GLUCOSE-HAND MONITOR CAPILLARY Specime n Type: CAPILLARY Comment: AAMIR RN notified Test performed by: [id number] Meter #: [id number] Ordering Provider: FRANCK TURNER Report Released Date/Time: Sep 05, 2024 05:11 PM Reporting Lab: [address] [address] Performing Lab: [address] [address] GLUCOSE-HAND MONITOR 113 mg/dL H Sep 05, 2024 12:06 PM [facility] GLUCOSE-HAND MONITOR CAPILLARY Specime n Type: CAPILLARY Comment: Test performed by: [id number] Meter #: [id number] Ordering Provider: FRANCK TURNER Report Released Date/Time: Sep 05, 2024 12:23 PM Reporting Lab: [address] [address] Performing Lab: [address] [address] GLUCOSE-HAND MONITOR 115 mg/dL H Sep 05, 2024 06:26 AM [facility] GLUCOSE-HAND MONITOR CAPILLARY Specime n Type: CAPILLARY Comment: AAMIR Correction Dose Test performed by: [id number] Meter #: [id number] Ordering Provider: FRANCK TURNER Report Released Date/Time: Sep 05, 2024 06:43 AM Reporting Lab: [address] [address] Performing Lab: [address] [address] GLUCOSE-HAND MONITOR 111 mg/dL H Sep 04, 2024 08:59 PM [facility] GLUCOSE-HAND MONITOR CAPILLARY Specime n Type: CAPILLARY Comment: AAMIR RN notified Test performed by: [id number] Meter #: [id number] Ordering Provider: FRANCK TURNER Report Released Date/Time: Sep 04, 2024 09:36 PM Reporting Lab: [address] [address] Performing Lab: [address] [address] GLUCOSE-HAND MONITOR 123 mg/dL H Sep 04, 2024 04:41 PM [facility] GLUCOSE-HAND MONITOR CAPILLARY Specime n Type: CAPILLARY Comment: AAMIR RN notified Test performed by: [id number] Meter #: [id number] Ordering Provider: FRANCK TURNER Report Released Date/Time: Sep 04, 2024 05:03 PM Reporting Lab: [address] [address] Performing Lab: [address] [address] GLUCOSE-HAND MONITOR 118 mg/dL H Sep 04, 2024 12:36 PM [facility] GLUCOSE-HAND MONITOR CAPILLARY Specime n Type: CAPILLARY Comment: AAMIR RN notified Test performed by: [id number] Meter #: [id number] Ordering Provider: FRANCK TURNER Report Released Date/Time: Sep 04, 2024 12:53 PM Reporting Lab: [place] [phone] Performing Lab: [place] [address] GLUCOSE-HAND MONITOR 129 mg/dL H 71-99 Sep 04, 2024 12:03 PM [facility] RESPIRATORY VIRUS PANEL (BIOFIRE) NASOPHARYN X Specimen Type: NASOPHARYNX Comment: ~For Test: RESPIRATORY VIRUS PANEL (BIOFIRE) ~ORDER READ BACK TO: FRANCK TURNER 09/04/24@11:30 Ordering Provider: FRANCK TURNER Report Released Date/Time: Sep 04, 2024 11:33 AM Reporting Lab: [place] [phone] Performing Lab: [place] [phone] ADENOVIRUS (BIOFIRE) Not Detected -Not D etected [...] -Not Detected Sep 04, 2024 06:55 AM [facility] MAGNESIUM PLASMA Specimen Type: PLASM A [...] Sep 03, 2024 11:10 AM Reporting Lab: [facility] [address] [facility] [address] Performing Lab: [facility] [address] [facility] [address] MAGNESIUM 1.8 mg/dL 1.6-2.6 Sep 04, 2024 06:55 AM [facility] PANEL 1 PLASMA Specimen Type: PLASM [...] Sep 03, 2024 11:10 AM Reporting Lab: [address] [address] Performing Lab: [address] [address] CREATININE 0.75 mg/dL 0.72-1.25 UREA NITROGEN 13 mg/dL 9-25 GLUCOSE 105 mg/dL H 74-100 SODIUM 128 mmol/L L 136-145 POTASSIUM 3.9 mmol/L 3.5-5.1 CHLORIDE 99 mmol/L 98-107 CO2 21 mmol/L L 22-29 CALCIUM 8.0 mg/dL L 8.4-10.2 ANION GAP 8 meq/L 3-19 eGFR (CKD-EPI) >90 Sep 04, 2024 06:02 AM [facility] GLUCOSE-HAND MONITOR CAPILLARY Specime n Type: CAPILLARY Comment: Test performed by: [id number] Meter #: [id number] Ordering Provider: FRANCK TURNER Report Released Date/Time: Sep 04, 2024 06:28 AM Reporting Lab: [address] [address] Performing Lab: [address] [address] GLUCOSE-HAND MONITOR 114 mg/dL H 71-99 Sep 03, 2024 05:19 PM [facility] GLUCOSE-HAND MONITOR CAPILLARY Specime n Type: CAPILLARY Comment: Test performed by: [id number] Meter #: [id number] Ordering Provider: FRANCK TURNER Report Released Date/Time: Sep 03, 2024 05:37 PM Reporting Lab: [address] [address] Performing Lab: [address] [address] GLUCOSE-HAND MONITOR 124 mg/dL H 71-99 Sep 03, 2024 04:41 PM [facility] GLUCOSE-HAND MONITOR CAPILLARY Specime n Type: CAPILLARY Comment: Test performed by: [id number] Meter #: [id number] Ordering Provider: FRANCK TURNER Report Released Date/Time: Sep 03, 2024 06:09 PM Reporting Lab: [address] [address] Performing Lab: [address] [address] GLUCOSE-HAND MONITOR 112 mg/dL H 71-99 Sep 03, 2024 01:35 PM [facility] URINE LYTES URINE Specimen Type : URINE Comment: ~Altered mental status with no identifiable cause Ordering Provider: FRANCK TURNER Report Released Date/Time: Sep 02, 2024 04:44 PM Reporting Lab: [address] [address] Performing Lab: [address] [address] SODIUM 130 mmol/L POTASSIUM 47.6 mmol/L CHLORIDE 137 mmol/L Sep 03, 2024 01:35 PM [facility] CREATININE URINE Specimen Type: URINE Comment: ~Altered mental status with no identifiable cause Ordering Provider: RFANCK TURNER Report Released Date/Time: Sep 02, 2024 04:44 PM Reporting Lab: [address] [address] Performing Lab: [address] [address] CREATININE 150.9 mg/dL Sep 03, 2024 01:35 PM [facility] URINALYSIS WITH REFLEX TO CULTURE URINE Specimen Type: URINE Comment: ~Altered mental status with no identifiable cause Ordering Provider: FRANCK TURNER Report Released Date/Time: Sep 02, 2024 04:44 PM Reporting Lab: [address] [address] Performing Lab: [address] [address] URINE COLOR Yellow Colorless-Yellow APPEARANCE CLOUDY H [...] H 0-28 Sep 03, 2024 01:35 PM [facility] UREA NITROGEN URINE Specimen Type : URINE Comment: ~Altered mental status with no identifiable cause Ordering Provider: FRANCK TURNER Report Released Date/Time: Sep 02, 2024 04:44 PM Reporting Lab: [place] [phone] Performing Lab: [place] [phone] UREA NITROGEN 320 mg/dL Sep 03, 2024 01:35 PM [facility] OSMOLALITY URINE Specimen Type: URINE Comment: ~Altered mental status with no identifiable cause Ordering Provider: FRANCK TURNER Report Released Date/Time: Sep 02, 2024 04:44 PM Reporting Lab: [address] [address] Performing Lab: [place] [phone] OSMOLALITY 522 mosm/kg 38-1400 Sep 03, 2024 11:58 AM [facility] GLUCOSE-HAND MONITOR CAPILLARY Specime n Type: CAPILLARY Comment: AAMIR RN notified Test performed by: [id number] Meter #: [id number] Ordering Provider: FRANCK TURNER Report Released Date/Time: Sep 03, 2024 12:15 PM Reporting Lab: [address] [address] Performing Lab: [address] [address] GLUCOSE-HAND MONITOR 135 mg/dL H -Sep 03, 2024 07:09 AM [facility] GLUCOSE-HAND MONITOR CAPILLARY Specime n Type: CAPILLARY Comment: Test performed by: [id number] Meter #: [id number] Ordering Provider: FRANCK TURNER Report Released Date/Time: Sep 03, 2024 07:26 AM Reporting Lab: [address] [address] Performing Lab: [address] [address] GLUCOSE-HAND MONITOR 120 mg/dL H -99 Sep 03, 2024 07:05 AM [facility] CBC/PLT BLOOD Specimen Type: BLOOD No comment entered. Ordering Provider: FRANCK TURNER Report Released Date/Time: Sep 02, 2024 04:29 PM Reporting Lab: [address] [address] Performing Lab: [address] [address] WBC 6.9 10*3/uL 5.0-10.0 RBC 3.48 10*6/uL L 4.6-6.2 HGB 9.5 g/dL L 14.0-18.0 HCT 29.1 L 42.0-52.0 MCV 83.6 fL 80.0-94.0 MCH 27.3 pg 27.0-31.0 MCHC 32.6 g/dL 32.0-36.0 PLT 258 10*3/uL 150-450 MPV 10.3 fL 9.0-13.1 RDW 14.8 11.0-16.0 NRBC 0.0 0.0-0.0 Sep 03, 2024 07:05 AM [facility] MAGNESIUM PLASMA Specimen Type: PLASM A [...] Sep 02, 2024 04:29 PM Reporting Lab: [address] [address] Performing Lab: [address] [address] MAGNESIUM 1.7 mg/dL 1.6-2.6 Sep 03, 2024 07:05 AM [facility] GLYCOHEMOGLOBIN BLOOD Specimen Type: BLOOD Comment: Prediabetes: 5.7%-6.4% Diabetes: >= 6.5% [facility] guidelines for A1c interpretation: Glycemic control targets are based on Shared Decision Making between clinicians and patients. Criteria used to establish an A1c target recommendation can be found at https://www.nm.gov/qualityandpatientsafety/ and include the use of result accuracy [...] 8.73 and 9.27. Ref: https://ngsp.org/CAPdata.asp. The in-house [employer] Stylet D-100 analyzer has a historical CV <= 2%. Contact the laboratory for further performance characteristics of this assay. Ordering Provider: FRANCK TURNER Report Released Date/Time: Sep 02, 2024 04:29 PM Reporting Lab: [address] [address] Performing Lab: [address] [address] GLYCOHEMOGLOBIN 5.6 4.4-5.6 Sep 03, 2024 07:05 AM [facility] OSMOLALITY SERUM Specimen Type: SERUM No comment entered. Ordering Provider: FRANCK TURNER Report Released Date/Time: Sep 02, 2024 04:44 PM Reporting Lab: [address] [address] Performing Lab: [address] [address] OSMOLALITY 271 mosm/kg L 280-300 Sep 03, 2024 07:05 AM [facility] PANEL 1 PLASMA Specimen Type: PLASM [...] Sep 02, 2024 04:29 PM Reporting Lab: [address] [address] Performing Lab: [address] [address] CREATININE 0.82 mg/dL 0.72-1.25 UREA NITROGEN 12 mg/dL 9-25 GLUCOSE 109 mg/dL H 74-100 SODIUM 129 mmol/L L 136-145 POTASSIUM 4.2 mmol/L 3.5-5.1 CHLORIDE 99 mmol/L 98-107 CO2 21 mmol/L L 22-29 CALCIUM 8.1 mg/dL L 8.4-10.2 ANION GAP 9 meq/L 3-19 eGFR (CKD-EPI) 90 Sep 02, 2024 08:15 PM [facility] GLUCOSE-HAND MONITOR CAPILLARY Specime n Type: CAPILLARY Comment: AAMIR RN notified Test performed by: [id number] Meter #: [id number] Ordering Provider: FRANCK TURNER Report Released Date/Time: Sep 02, 2024 08:57 PM Reporting Lab: [address] [address] Performing Lab: [address] [address] GLUCOSE-HAND MONITOR 126 mg/dL H 71-99 Sep 02, 2024 06:10 PM [facility] MRSA SURVL NARES DNA NARES Specime [...] Sep 02, 2024 05:12 PM Reporting Lab: [address] [address] Performing Lab: [address] [address] MRSA SURVL NARES DNA Negative Negative Sep 02, 2024 05:36 PM [facility] GLUCOSE-HAND MONITOR CAPILLARY Specime n Type: CAPILLARY Comment: Test performed by: [id number] Meter #: [id number] Ordering Provider: FRANCK TURNER Report Released Date/Time: Sep 02, 2024 05:53 PM Reporting Lab: [address] [address] Performing Lab: [address] [address] GLUCOSE-HAND MONITOR 127 mg/dL H 71-99 Aug 29, 2024 10:04 PM [facility] URINALYSIS WITH REFLEX TO CULTURE URINE Specimen Type: URINE Comment: ~For Test: URINALYSIS WITH REFLEX TO CULTURE ~REORDER Ordering Provider: FELISA COLE Report Released Date/Time: Aug 29, 2024 09:36 PM Reporting Lab: [address] [address] Performing Lab: [address] [address] URINE COLOR Yellow Colorless-Yellow APPEARANCE Clear Clear [...] /[LPF] 0-28 Aug 29, 2024 08:32 PM [facility] HIGH SENSITIVITY TROPONIN I PLASMA Specimen [...] Aug 29, 2024 07:55 PM Reporting Lab: [address] [address] Performing Lab: [address] [address] HIGH SENSITIVITY TROPONIN I 7 4-35 Aug 29, 2024 08:32 PM [facility] CBC/PLT BLOOD Specimen Type: BLOOD No comment entered. Ordering Provider: FELISA COLE Report Released Date/Time: Aug 29, 2024 07:55 PM Reporting Lab: [address] [address] Performing Lab: [address] [address] WBC 11.2 10*3/uL H 5.0-10.0 RBC 3.97 10*6/uL L 4.6-6.2 HGB 10.9 g/dL L 14.0-18.0 HCT 33.5 L 42.0-52.0 MCV 84.4 fL 80.0-94.0 MCH 27.5 pg 27.0-31.0 MCHC 32.5 g/dL 32.0-36.0 PLT 230 10*3/uL 150-450 MPV 10.2 fL 9.0-13.1 RDW 14.6 11.0-16.0 NRBC 0.0 0.0-0.0 Aug 29, 2024 08:32 PM [facility] PANEL 5 PLASMA Specimen Type: [...] I information resource can be reached in [facility] in the Tools menu, under the [...] Aug 29, 2024 07:55 PM Reporting Lab: [address] [address] Performing Lab: [address] [address] CREATININE 0.85 mg/dL 0.72-1.25 UREA NITROGEN 15 [...] Pain Height Weight Body Mass Index Source Sep 02, 2024 03:57 PM 97.6 F 90 /min 132/75 mm[Hg] 17 /min 96 % 0 [place] [facility] Social History: Smoking Status (Most current) and Tobacco Use (All prior to encounter date) This section includes the most current, and the historical, smoking and tobacco- related health factors from the [place] facility where the Encounter took place. Current Smoking Status This section includes the most current smoking, or tobacco-related health factor, from the [place] facility where the Encounter took place. Date/Time Current Smoking Status Comment Facil ity Feb 06, 2024 10:00 AM VA-TOBACCO USER SOME DAYS [facility] Tobacco Use History This section includes a history of the smoking, or tobacco-related health factors, that were collected on or before the date of the Encounter. The data comes from the [place] facility where the Encounter took place. 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 [facility] Feb 06, 2024 10:00 AM VA-TOBACCO USE MED NO [facility] Feb 06, 2024 10:00 AM VA-TOBACCO USER SOME DAYS [facility] Advance Directives: All historical and current Section [...] 08, 2024 ADVANCE DIRECTIVE DISCUSSION [facility] Radiology Reports: +/- 30 days [...] BRAIN W & W/O: LUIS MANUEL PERDOMO [id number] -1945 M Exm Date: SEP 06, 2024@13:40 Req Phys: FRANCK TURNER Loc: 5-MED/TEL/09-06-2024@19:09 Img Loc: [facility] Service: [place] [address] (Case [id number] COMPLETE) MRI BRAIN W & W/O (MRI Detailed) CPT:04194 Contrast Media : Gadolinium Reason for Study: SEE CLINICAL HISTORY Pharmaceutical: GADOTERIDOL 279.3MG/ML 20ML INJ, 19ml Clinical History: MRI Screening (Required): IMPLANTED DEVICE DOCUMENTATION IMPLANTED DEVICE DOCUMENTATION NOT FOUND Does the [place] have any Cardiac Implants? None Does the [place] have any implanted stimulators? None Does the [place] have cochlear implants? No Does the have Cerebral aneurysm clip(s)? I don't know Does the [place] have any shrapnel? I don't know If [...] 06, 2024 Date Verified: SEP 06, 2024 V Belt Skiver E-Sig: Report: MRI brain without and with [...] Staff: ARCENIO LEYVA, Staff Radiologist Verified by event specialist product demonstrator for ARCENIO LEYVA /ARCENIO AVILA AAMIRWILSON-CDD [facility] Sep 06, 2024 01:40 PM MRI C SPINE W & W/ O CONTRAST(FURTHER SEQUENCES): LUIS MANUEL PERDOMO [id number] -1945 M Exm Date: SEP 06, 2024@13:40 Req Phys: FRANCK TURNER [facility] Loc: 5-MED/TEL/09-07-2024@06:42 Img Loc: [facility] Service: [place] [address] (Case [id number] COMPLETE) MRI C SPINE W & W/O CONTRAST(FURT(MRI Detailed) CPT:87799 Contrast Media : Gadolinium Reason for Study: SEE CLINICAL HISTORY Pharmaceutical: GADOTERIDOL 279.3MG/ML 20ML INJ, 19ml Clinical History: STATUS OF PLAIN FILMS:Not performed (Provide justification for MR W/O prior plain films below.) MRI for MS MRI Screening (Required): IMPLANTED DEVICE DOCUMENTATION IMPLANTED DEVICE DOCUMENTATION NOT FOUND Does the [place] have any Cardiac Implants? None Does the have any implanted stimulators? None Does the have cochlear implants? No Does the [place] have Cerebral aneurysm clip(s)? I don't know [...] 07, 2024 Date Verified: SEP 07, 2024 V Belt Skiver E-Sig: Report: EXAMINATION: MRI OF THE CERVICAL [...] Interpreting Staff: HUANG TAI Radiologist Verified by event specialist product demonstrator for HUANG TAI /KIAN TAIHUANG [facility]ul[facility] Sep 03, 2024 10:45 AM CHEST SINGLE(1) EW: LUIS MANUEL PERDOMO [id number] -[id number] M Exm Date: SEP 03, 2024@10:45 Req Phys: FRANCK TURNER Loc: 5-MED/TEL/09-03-2024@10:56 Img Loc: [facility] Service: [place] [address] (Case [id number] COMPLETE)CHEST SINGLE(1) VIEW (RAD Detailed) CPT:71740 Proc Modifiers : PORTABLE EXAM Reason for Study: Eval volume status Clinical History: Report Status: Verified Date Reported: SEP 03, 2024 Date Verified: SEP 03, 2024 V Belt Skiver E-Sig: Report: EXAMINATION: SINGLE VIEW CHEST CLINICAL [...] Interpreting Staff: HUANG TAI Radiologist Verified by event specialist product demonstrator for HUANG TAI /KIAN [facility] Aug 29, 2024 08:[address] HEAD W/O CONT: LUIS MANUEL PERDOMO FABIAN [id number] -1945 M Exm Date: AUG 29, 2024@20:28 Req Phys: FELISA COLE Loc: ED/4P-12A (Req'g Loc) Img Loc: CT SCAN Service: [place] [address] (Case [id number] COMPLETE) CT HEAD W/O CONT (CT Detailed) CPT:74597 Reason for Study: SEE CLINICAL HISTORY Clinical History: REASON FOR SEND OUT: ATTENDING PHYSICIAN NAME: New transient neurological s/s - suspected TIA HISTORY/REASON FOR EXAM: confusion Report Status: Verified Date Reported: AUG 29, 2024 Date Verified: AUG 29, 2024 V Belt Skiver E-Sig: Report: HISTORY confusion COMPARISON No prior [...] Staff: ABDIRAHMAN DAVIDSON, Staff Physician Verified by event specialist product demonstrator for ABDIRAHMAN DAVIDSON /[facility] Pathology Reports: +/- 30 days of [...] PORT: Reporting Lab: [facility] [CLIA# [id number]] [address] [place] [id number] Accession [UID]: [id number] [[id number]] Received: Sep 03, 2024@14:02 Collection sample: URINE, [...] Report Performed By: [facility] [CLIA# [id number]] [address] [place] [phone] MAGDY [facility] Sep 02, 2024 06:00 PM LR MICROBIOLOGY RE PORT: Reporting Lab: [facility] [CLIA# [id number]] [address] [place] [id number] Accession [UID]: [id number] [[id number]] Received: Sep 02, 2024@18:07 Collection sample: BLD CULTURE BOTTLES Collection date: Sep 02, 2024 18:00 Site/Specimen: BLOOD Provider: FRANCK TURNER Comment on specimen: L HAND Test(s) ordered: CULTURE, BLOOD................ completed: Sep 08, 2024 * BACTERIOLOGY FINAL REPORT => Sep 08, 2024 08:25 TECH CODE: [id number] Bacteriology Remark(s): Blood culture status=NO GROWTH (unless notified otherwise) 09/03/2024 AEROBIC: NO GROWTH ANAEROBIC: NO GROWTH =--=--=--=--=--=--=--=--=--=-- =--=--=--=--=--=--=--=--=--=-- =--=--=--=--=--=-- Performing Laboratory: Bacteriology Report Performed By: [facility] [CLIA# [id number]] [address] [place] [phone] [facility] Aug 29, 2024 10:18 PM LR MICROBIOLOGY RE PORT: Reporting Lab: [facility] [CLIA# [id number]] [address] [place] [address] Accession [UID]: [id number] [[id number]] Received: Aug 29, 2024@22:18 Collection sample: URINE, CLEAN CATCH Collection date: Aug 29, 2024 22:18 Site/Specimen: URINE Provider: FELISA COLE Test(s) ordered: CULTURE, URINE................ completed: Aug 31, 2024 09:51 * BACTERIOLOGY FINAL REPORT => Aug 31, 2024 09:51 TECH CODE: [id number] Bacteriology Remark(s): NO GROWTH 08/30/2024 <10,000 CFU/ML. 08/31/2024 =--=--=--=--=--=--=--=--=--=-- =--=--=--=--=--=--=--=--=--=-- =--=--=--=--=--=-- Performing Laboratory: Bacteriology Report Performed By: [facility] [CLIA# [id number]] [facility] [place] [address] MAGDY CALABRESE [facility]
--- OUTSIDE RECORDS SUMMARY | 2024-09-02 08:07 | XMS_ITS | Encounter Summary ---
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 Role Phone YULISSA HENDERSON Primary Care [...] PLAN F Mar 24, 2014 PLAN F [id number] [phone] LUIS MANUEL PERDOMO PATIENT [facility] [place] BLUECARD PREFERRED PROVIDER ORGANIZAT ION (PPO) [facility] Sep 21, 2012 [id number] LUIS MANUEL PERDOMO PATIENT [employer] ([id number]) PRESCRIPT ION [id number] Sep 21, 2012 [id number] LUIS MANUEL PERDOMO PATIENT MEDICARE (WNR) MEDICARE (M) PART B Sep 21, 2012 PART B [id number] [phone] NOEMI PERDOMO PATIENT MEDICARE (WNR) MEDICARE (M) PART A Jan 22, 2011 PART A [id number] NOEMI PERDOMO PATIENT MEDICARE PART D (WNR) MEDICARE (M) PART D Mar 24, 2014 PART D [id number] LUIS MANUEL PERDOMO PATIENT Selected Encounter This section includes the information on record at [place] for the Encounter. Date/Time Encounter Type Encounter Description Reason Pro vider Source Sep 02, 2024 12:07 PM Inpatient Visit ADMIN PAT ACTIVTIES (MASNONCT) IHE Encounter Template Text not used by [place] Plan of Treatment: Future Appointments (+ 6 [...] 08:00 AM [facility]ORY - NONE [facility] Sep 30, 2024 01:30 PM AMBULATORY - SURGERY [place] [facility] [facility] Active, Pending, and Scheduled Orders This [...] Sep 13, 2024 01:33 PM Consult Order [facility] Cons Bottom Saw Operator's Choice [facility] Lab Results: +/- 30 days [...] Type Comment Sep 09, 2024 12:16 PM [facility] GLUCOSE-HAND MONITOR CAPILLARY Specimen Type: CAPILLARY Comment: Test performed by: [id number] Meter #: [id number] Ordering Provider: FRANCK TURNER Report Released Date/Time: Sep 09, 2024 12:33 PM Reporting Lab: [address] [address] Performing Lab: [address] [address] GLUCOSE-HAND MONITOR 116 mg/dL H Sep 09, 2024 06:07 AM [facility] GLUCOSE-HAND MONITOR CAPILLARY Specime n Type: CAPILLARY Comment: Test performed by: [id number] Meter #: [id number] Ordering Provider: FRANCK TURNER Report Released Date/Time: Sep 09, 2024 08:17 AM Reporting Lab: [address] [address] Performing Lab: [address] [address] GLUCOSE-HAND MONITOR 112 mg/dL H Sep 08, 2024 09:13 PM [facility] GLUCOSE-HAND MONITOR CAPILLARY Specime n Type: CAPILLARY Comment: Test performed by: [id number] Meter #: [id number] Ordering Provider: FRANCK TURNER Report Released Date/Time: Sep 08, 2024 09:31 PM Reporting Lab: [address] [address] Performing Lab: [address] [address] GLUCOSE-HAND MONITOR 107 mg/dL H Sep 08, 2024 03:49 PM [facility] GLUCOSE-HAND MONITOR CAPILLARY Specime n Type: CAPILLARY Comment: AAMIR RN notified Test performed by: [id number] Meter #: [id number] Ordering Provider: FRANCK TURNER Report Released Date/Time: Sep 08, 2024 04:33 PM Reporting Lab: [address] [address] Performing Lab: [address] [address] GLUCOSE-HAND MONITOR 162 mg/dL H Sep 08, 2024 11:43 AM [facility] GLUCOSE-HAND MONITOR CAPILLARY Specime n Type: CAPILLARY Comment: AAMIR RN notified Test performed by: [id number] Meter #: [id number] Ordering Provider: FRANCK TURNER Report Released Date/Time: Sep 08, 2024 12:03 PM Reporting Lab: [address] [address] Performing Lab: [address] [address] GLUCOSE-HAND MONITOR 133 mg/dL H Sep 08, 2024 06:13 AM [facility] GLUCOSE-HAND MONITOR CAPILLARY Specime n Type: CAPILLARY Comment: Test performed by: [id number] Meter #: [id number] Ordering Provider: FRANCK TURNER Report Released Date/Time: Sep 08, 2024 06:46 AM Reporting Lab: [address] [address] Performing Lab: [address] [address] GLUCOSE-HAND MONITOR 104 mg/dL H Sep 07, 2024 07:59 PM [facility] GLUCOSE-HAND MONITOR CAPILLARY Specime n Type: CAPILLARY Comment: Test performed by: [id number] Meter #: [id number] Ordering Provider: FRANCK TURNER Report Released Date/Time: Sep 07, 2024 09:05 PM Reporting Lab: [address] [address] Performing Lab: [address] [address] GLUCOSE-HAND MONITOR 107 mg/dL H Sep 07, 2024 04:39 PM [facility] GLUCOSE-HAND MONITOR CAPILLARY Specime n Type: CAPILLARY Comment: Test performed by: [id number] Meter #: [id number] Ordering Provider: FRANCK TURNER Report Released Date/Time: Sep 07, 2024 05:09 PM Reporting Lab: [address] [address] Performing Lab: [address] [address] GLUCOSE-HAND MONITOR 105 mg/dL H Sep 07, 2024 11:41 AM [facility] GLUCOSE-HAND MONITOR CAPILLARY Specime n Type: CAPILLARY Comment: Test performed by: [id number] Meter #: [id number] Ordering Provider: FRANCK TURNER Report Released Date/Time: Sep 07, 2024 12:41 PM Reporting Lab: [place] [phone] Performing Lab: [address] [address] GLUCOSE-HAND MONITOR 144 mg/dL H Sep 07, 2024 05:56 AM [facility] GLUCOSE-HAND MONITOR CAPILLARY Specime n Type: CAPILLARY Comment: Test performed by: [id number] Meter #: [id number] Ordering Provider: FRANCK TURNER Report Released Date/Time: Sep 07, 2024 06:31 AM Reporting Lab: [place] [phone] Performing Lab: [place] [phone] GLUCOSE-HAND MONITOR 96 mg/dL Sep 06, 2024 08:10 PM [facility] GLUCOSE-HAND MONITOR CAPILLARY Specime n Type: CAPILLARY Comment: Test performed by: [id number] Meter #: [id number] Ordering Provider: FRANCK TURNER Report Released Date/Time: Sep 06, 2024 08:52 PM Reporting Lab: [place] [phone] Performing Lab: [address] [address] GLUCOSE-HAND MONITOR 124 mg/dL H Sep 06, 2024 04:27 PM [facility] GLUCOSE-HAND MONITOR CAPILLARY Specime n Type: CAPILLARY Comment: Test performed by: [id number] Meter #: [id number] Ordering Provider: FRANCK TURNER Report Released Date/Time: Sep 06, 2024 05:15 PM Reporting Lab: [place] [phone] Performing Lab: [address] [address] GLUCOSE-HAND MONITOR 107 mg/dL H Sep 06, 2024 12:12 PM [facility] GLUCOSE-HAND MONITOR CAPILLARY Specime n Type: CAPILLARY Comment: Test performed by: [id number] Meter #: [id number] Ordering Provider: FRANCK TURNER Report Released Date/Time: Sep 06, 2024 12:29 PM Reporting Lab: [address] [address] Performing Lab: [address] [address] GLUCOSE-HAND MONITOR 181 mg/dL H Sep 06, 2024 06:13 AM [facility] GLUCOSE-HAND MONITOR CAPILLARY Specime n Type: CAPILLARY Comment: Test performed by: [id number] Meter #: [id number] Ordering Provider: FRANCK TURNER Report Released Date/Time: Sep 06, 2024 06:36 AM Reporting Lab: [address] [address] Performing Lab: [address] [address] GLUCOSE-HAND MONITOR 102 mg/dL H Sep 05, 2024 08:47 PM [facility] GLUCOSE-HAND MONITOR CAPILLARY Specime n Type: CAPILLARY Comment: Test performed by: [id number] Meter #: [id number] Ordering Provider: FRANCK TURNER Report Released Date/Time: Sep 06, 2024 02:13 AM Reporting Lab: [address] [address] Performing Lab: [address] [address] GLUCOSE-HAND MONITOR 103 mg/dL H Sep 05, 2024 04:40 PM [facility] GLUCOSE-HAND MONITOR CAPILLARY Specime n Type: CAPILLARY Comment: AAMIR RN notified Test performed by: [id number] Meter #: [id number] Ordering Provider: FRANCK TURNER Report Released Date/Time: Sep 05, 2024 05:11 PM Reporting Lab: [address] [address] Performing Lab: [address] [address] GLUCOSE-HAND MONITOR 113 mg/dL H Sep 05, 2024 12:06 PM [facility] GLUCOSE-HAND MONITOR CAPILLARY Specime n Type: CAPILLARY Comment: Test performed by: [id number] Meter #: [id number] Ordering Provider: FRANCK TURNER Report Released Date/Time: Sep 05, 2024 12:23 PM Reporting Lab: [address] [address] Performing Lab: [address] [address] GLUCOSE-HAND MONITOR 115 mg/dL H Sep 05, 2024 06:26 AM [facility] GLUCOSE-HAND MONITOR CAPILLARY Specime n Type: CAPILLARY Comment: AAMIR Correction Dose Test performed by: [id number] Meter #: [id number] Ordering Provider: FRANCK TURNER Report Released Date/Time: Sep 05, 2024 06:43 AM Reporting Lab: [address] [address] Performing Lab: [address] [address] GLUCOSE-HAND MONITOR 111 mg/dL H Sep 04, 2024 08:59 PM [facility] GLUCOSE-HAND MONITOR CAPILLARY Specime n Type: CAPILLARY Comment: AAMIR RN notified Test performed by: [id number] Meter #: [id number] Ordering Provider: FRANCK TURNER Report Released Date/Time: Sep 04, 2024 09:36 PM Reporting Lab: [address] [address] Performing Lab: [address] [address] GLUCOSE-HAND MONITOR 123 mg/dL H Sep 04, 2024 04:41 PM [facility] GLUCOSE-HAND MONITOR CAPILLARY Specime n Type: CAPILLARY Comment: AAMIR RN notified Test performed by: [id number] Meter #: [id number] Ordering Provider: FRANCK TURENR Report Released Date/Time: Sep 04, 2024 05:03 PM Reporting Lab: [address] [address] Performing Lab: [address] [address] GLUCOSE-HAND MONITOR 118 mg/dL H Sep 04, 2024 12:36 PM [facility] GLUCOSE-HAND MONITOR CAPILLARY Specime n Type: CAPILLARY Comment: AAMIR RN notified Test performed by: [id number] Meter #: [id number] Ordering Provider: FRANCK TURNER Report Released Date/Time: Sep 04, 2024 12:53 PM Reporting Lab: [place] [address] Performing Lab: [place] [address] GLUCOSE-HAND MONITOR 129 mg/dL H 71-99 Sep 04, 2024 12:03 PM [facility] RESPIRATORY VIRUS PANEL (BIOFIRE) NASOPHARYN X Specimen Type: NASOPHARYNX Comment: ~For Test: RESPIRATORY VIRUS PANEL (BIOFIRE) ~ORDER READ BACK TO: FRANCK TURNER 09/04/24@11:30 Ordering Provider: FRANCK TURNER Report Released Date/Time: Sep 04, 2024 11:33 AM Reporting Lab: [place] [address] Performing Lab: [place] [address] ADENOVIRUS (BIOFIRE) Not Detected -Not D etected [...] -Not Detected Sep 04, 2024 06:55 AM [facility] MAGNESIUM PLASMA Specimen Type: PLASM A [...] Sep 03, 2024 11:10 AM Reporting Lab: [place] [address] Performing Lab: [address] [address] MAGNESIUM 1.8 mg/dL 1.6-2.6 Sep 04, 2024 06:55 AM [facility] PANEL 1 PLASMA Specimen Type: PLASM [...] Sep 03, 2024 11:10 AM Reporting Lab: [address] [address] Performing Lab: [address] [address] CREATININE 0.75 mg/dL 0.72-1.25 UREA NITROGEN 13 mg/dL 9-25 GLUCOSE 105 mg/dL H 74-100 SODIUM 128 mmol/L L 136-145 POTASSIUM 3.9 mmol/L 3.5-5.1 CHLORIDE 99 mmol/L 98-107 CO2 21 mmol/L L 22-29 CALCIUM 8.0 mg/dL L 8.4-10.2 ANION GAP 8 meq/L 3-19 eGFR (CKD-EPI) >90 Sep 04, 2024 06:02 AM [facility] GLUCOSE-HAND MONITOR CAPILLARY Specime n Type: CAPILLARY Comment: Test performed by: [id number] Meter #: [id number] Ordering Provider: FRANCK TURNER Report Released Date/Time: Sep 04, 2024 06:28 AM Reporting Lab: [address] [address] Performing Lab: [address] [address] GLUCOSE-HAND MONITOR 114 mg/dL H 71-99 Sep 03, 2024 05:19 PM [facility] GLUCOSE-HAND MONITOR CAPILLARY Specime n Type: CAPILLARY Comment: Test performed by: [id number] Meter #: [id number] Ordering Provider: FRANCK TURNER Report Released Date/Time: Sep 03, 2024 05:37 PM Reporting Lab: [address] [address] Performing Lab: [address] [address] GLUCOSE-HAND MONITOR 124 mg/dL H 71-99 Sep 03, 2024 04:41 PM [facility] GLUCOSE-HAND MONITOR CAPILLARY Specime n Type: CAPILLARY Comment: Test performed by: [id number] Meter #: [id number] Ordering Provider: FRANCK TURNER Report Released Date/Time: Sep 03, 2024 06:09 PM Reporting Lab: [address] [address] Performing Lab: [address] [address] GLUCOSE-HAND MONITOR 112 mg/dL H 71-99 Sep 03, 2024 01:35 PM [facility] URINE LYTES URINE Specimen Type : URINE Comment: ~Altered mental status with no identifiable cause Ordering Provider: FRANCK TURNER Report Released Date/Time: Sep 02, 2024 04:44 PM Reporting Lab: [place] [phone] Performing Lab: [address] [address] SODIUM 130 mmol/L POTASSIUM 47.6 mmol/L CHLORIDE 137 mmol/L Sep 03, 2024 01:35 PM [facility] CREATININE URINE Specimen Type: URINE Comment: ~Altered mental status with no identifiable cause Ordering Provider: FRANCK TURNER Report Released Date/Time: Sep 02, 2024 04:44 PM Reporting Lab: [address] [address] Performing Lab: [address] [address] CREATININE 150.9 mg/dL Sep 03, 2024 01:35 PM [facility] URINALYSIS WITH REFLEX TO CULTURE URINE Specimen Type: URINE Comment: ~Altered mental status with no identifiable cause Ordering Provider: FRANCK TURNER Report Released Date/Time: Sep 02, 2024 04:44 PM Reporting Lab: [address] [address] Performing Lab: [address] [address] URINE COLOR Yellow Colorless-Yellow APPEARANCE CLOUDY H [...] H 0-28 Sep 03, 2024 01:35 PM [facility] UREA NITROGEN URINE Specimen Type : URINE Comment: ~Altered mental status with no identifiable cause Ordering Provider: FRANCK TURNER Report Released Date/Time: Sep 02, 2024 04:44 PM Reporting Lab: [place] [phone] Performing Lab: [address] [address] UREA NITROGEN 320 mg/dL Sep 03, 2024 01:35 PM [facility] OSMOLALITY URINE Specimen Type: URINE Comment: ~Altered mental status with no identifiable cause Ordering Provider: FRANCK TURNER Report Released Date/Time: Sep 02, 2024 04:44 PM Reporting Lab: [address] [address] Performing Lab: [address] [address] OSMOLALITY 522 mosm/kg 38-1400 Sep 03, 2024 11:58 AM [facility] GLUCOSE-HAND MONITOR CAPILLARY Specime n Type: CAPILLARY Comment: AAMIR RN notified Test performed by: [id number] Meter #: [id number] Ordering Provider: FRANCK TURNER Report Released Date/Time: Sep 03, 2024 12:15 PM Reporting Lab: [address] [address] Performing Lab: [address] [address] GLUCOSE-HAND MONITOR 135 mg/dL H 71-99 Sep 03, 2024 07:09 AM [facility] GLUCOSE-HAND MONITOR CAPILLARY Specime n Type: CAPILLARY Comment: Test performed by: [id number] Meter #: [id number] Ordering Provider: FRANCK TURNER Report Released Date/Time: Sep 03, 2024 07:26 AM Reporting Lab: [address] [address] Performing Lab: [address] [address] GLUCOSE-HAND MONITOR 120 mg/dL H 71-99 Sep 03, 2024 07:05 AM [facility] CBC/PLT BLOOD Specimen Type: BLOOD No comment entered. Ordering Provider: FRANCK TURNER Report Released Date/Time: Sep 02, 2024 04:29 PM Reporting Lab: [facility] [address] [facility] [address] Performing Lab: [address] [address] WBC 6.9 10*3/uL 5.0-10.0 RBC 3.48 10*6/uL L 4.6-6.2 HGB 9.5 g/dL L 14.0-18.0 HCT 29.1 L 42.0-52.0 MCV 83.6 fL 80.0-94.0 MCH 27.3 pg 27.0-31.0 MCHC 32.6 g/dL 32.0-36.0 PLT 258 10*3/uL 150-450 MPV 10.3 fL 9.0-13.1 RDW 14.8 11.0-16.0 NRBC 0.0 0.0-0.0 Sep 03, 2024 07:05 AM [facility] MAGNESIUM PLASMA Specimen Type: PLASM A [...] Sep 02, 2024 04:29 PM Reporting Lab: [address] [address] Performing Lab: [address] [address] MAGNESIUM 1.7 mg/dL 1.6-2.6 Sep 03, 2024 07:05 AM [facility] PANEL 1 PLASMA Specimen Type: PLASM [...] Sep 02, 2024 04:29 PM Reporting Lab: [address] [address] Performing Lab: [address] [address] CREATININE 0.82 mg/dL 0.72-1.25 UREA NITROGEN 12 mg/dL 9-25 GLUCOSE 109 mg/dL H 74-100 SODIUM 129 mmol/L L 136-145 POTASSIUM 4.2 mmol/L 3.5-5.1 CHLORIDE 99 mmol/L 98-107 CO2 21 mmol/L L 22-29 CALCIUM 8.1 mg/dL L 8.4-10.2 ANION GAP 9 meq/L 3-19 eGFR (CKD-EPI) 90 Sep 03, 2024 07:05 AM [facility] GLYCOHEMOGLOBIN BLOOD Specimen Type: BLOOD Comment: Prediabetes: 5.7%-6.4% Diabetes: >= 6.5% [facility] guidelines for A1c interpretation: Glycemic control [...] 8.73 and 9.27. Ref: https://ngsp.org/CAPdata.asp. The in-house [employer] D-100 analyzer has a historical CV <= 2%. Contact the laboratory for further performance characteristics of this assay. Ordering Provider: FRANCK TURNER Report Released Date/Time: Sep 02, 2024 04:29 PM Reporting Lab: [address] [address] Performing Lab: [place] [phone] GLYCOHEMOGLOBIN 5.6 4.4-5.6 Sep 03, 2024 07:05 AM [facility] OSMOLALITY SERUM Specimen Type: SERUM No comment entered. Ordering Provider: FRANCK TURNER Report Released Date/Time: Sep 02, 2024 04:44 PM Reporting Lab: [address] [address] Performing Lab: [address] [address] OSMOLALITY 271 mosm/kg L 280-300 Sep 02, 2024 08:15 PM [facility] GLUCOSE-HAND MONITOR CAPILLARY Specime n Type: CAPILLARY Comment: AAMIR RN notified Test performed by: [id number] Meter #: [id number] Ordering Provider: FRANCK TURNER Report Released Date/Time: Sep 02, 2024 08:57 PM Reporting Lab: [address] [address] Performing Lab: [address] [address] GLUCOSE-HAND MONITOR 126 mg/dL H 71-99 Sep 02, 2024 06:10 PM [facility] MRSA SURVL NARES DNA NARES Specime [...] Sep 02, 2024 05:12 PM Reporting Lab: [address] [address] Performing Lab: [address] [address] MRSA SURVL NARES DNA Negative Negative Sep 02, 2024 05:36 PM [facility] GLUCOSE-HAND MONITOR CAPILLARY Specime n Type: CAPILLARY Comment: Test performed by: [id number] Meter #: [id number] Ordering Provider: FRANCK TURNER Report Released Date/Time: Sep 02, 2024 05:53 PM Reporting Lab: [address] [address] Performing Lab: [address] [address] GLUCOSE-HAND MONITOR 127 mg/dL H 71-99 Aug 29, 2024 10:04 PM [facility] URINALYSIS WITH REFLEX TO CULTURE URINE Specimen Type: URINE Comment: ~For Test: URINALYSIS WITH REFLEX TO CULTURE ~REORDER Ordering Provider: FELISA COLE Report Released Date/Time: Aug 29, 2024 09:36 PM Reporting Lab: [address] [address] Performing Lab: [address] [address] URINE COLOR Yellow Colorless-Yellow APPEARANCE Clear Clear [...] /[LPF] 0-28 Aug 29, 2024 08:32 PM [facility]IGH SENSITIVITY TROPONIN I PLASMA Specimen [...] Aug 29, 2024 07:55 PM Reporting Lab: [address] [address] Performing Lab: [address] [address] HIGH SENSITIVITY TROPONIN I 7 4-35 Aug 29, 2024 08:32 PM [facility] CBC/PLT BLOOD Specimen Type: BLOOD No comment entered. Ordering Provider: FELISA COLE Report Released Date/Time: Aug 29, 2024 07:55 PM Reporting Lab: [address] [address] Performing Lab: [address] [address] WBC 11.2 10*3/uL H 5.0-10.0 RBC 3.97 10*6/uL L 4.6-6.2 HGB 10.9 g/dL L 14.0-18.0 HCT 33.5 L 42.0-52.0 MCV 84.4 fL 80.0-94.0 MCH 27.5 pg 27.0-31.0 MCHC 32.5 g/dL 32.0-36.0 PLT 230 10*3/uL 150-450 MPV 10.2 fL 9.0-13.1 RDW 14.6 11.0-16.0 NRBC 0.0 0.0-0.0 Aug 29, 2024 08:32 PM [facility] PANEL 5 PLASMA Specimen Type: PLASM [...] I information resource can be reached in [facility] in the Tools menu, under the [...] Aug 29, 2024 07:55 PM Reporting Lab: [address] [address] Performing Lab: [address] [address] CREATININE 0.85 mg/dL 0.72-1.25 UREA NITROGEN 15 [...] Body Mass Index Source Sep 02, 2024 08:14 PM 99.1 F 86 /min 146/77 mm[Hg] 18 /min 95 % 0 [place] [facility] Sep 02, 2024 05:01 PM 0 [place] [facility] Advance Directives: All historical and current Section [...] 08, 2024 ADVANCE DIRECTIVE DISCUSSION [facility] Radiology Reports: +/- 30 days [...] BRAIN W & W/O: LUIS MANUEL PERDOMO [id number] -1945 M Exm Date: SEP 06, 2024@13:40 Req Phys: FRANCK TURNER Loc: 5-MED/TEL/09-06-2024@19:09 Img Loc: [facility] Service: [facility] [place] [id number] (Case [id number] COMPLETE) MRI BRAIN W & W/O (MRI Detailed) CPT:39649 Contrast Media : Gadolinium Reason for Study: SEE CLINICAL HISTORY Pharmaceutical: GADOTERIDOL 279.3MG/ML 20ML INJ, 19ml Clinical History: MRI Screening (Required): IMPLANTED DEVICE DOCUMENTATION IMPLANTED DEVICE DOCUMENTATION NOT FOUND Does the have any Cardiac Implants? None Does the Jackson have any implanted stimulators? None Does the Jackson have cochlear implants? No Does the have Cerebral aneurysm clip(s)? I don't know Does the Jackson have any shrapnel? I don't know If yes, where in your body? Please list other implants not listed above: MRI table has a weight limit of 551 lbs. Jackson's Weight: *212 lb [96.16 kg] (09/04/2024 05:19) Is this patient claustrophobic?: No REASON FOR EXAM:MULTIPLE SCLEROSIS (indicate suspected or established) PERTINENT PATIENT HISTORY: MS c/f for flare Risk factors for GADOLINIUM NEPHROGENIC SYSTEMIC SCLEROSIS: Report Status: Verified Date Reported: SEP 06, 2024 Date Verified: SEP 06, 2024 Transfer Clerk E-Sig: Report: MRI brain without and with [...] Staff: ARCENIO LEYVA, Staff Radiologist Verified by corporate planning manager for ARCENIO LEYVA /ARCENIO [facility] Sep 06, 2024 01:40 PM MRI C SPINE W & W/ O CONTRAST(FURTHER SEQUENCES): LUIS MANUEL PERDOMO [id number] -1945 M Exm Date: SEP 06, 2024@13:40 Req Phys: FRANCK TURNER Loc: 5-[facility]/TEL/09-07-2024@06:42 Img Loc: [facility] Service: [facility] [place] [address] (Case [id number] COMPLETE) MRI C SPINE W & W/O CONTRAST(FURT(MRI Detailed) CPT:49587 Contrast Media : Gadolinium Reason for Study: SEE CLINICAL HISTORY Pharmaceutical: GADOTERIDOL 279.3MG/ML 20ML INJ, 19ml Clinical History: STATUS OF PLAIN FILMS:Not performed (Provide justification for MR W/O prior plain films below.) MRI for MS MRI Screening (Required): IMPLANTED DEVICE DOCUMENTATION IMPLANTED DEVICE DOCUMENTATION NOT FOUND Does the Jackson have any Cardiac Implants? None Does the have any implanted stimulators? None Does the Jackson have cochlear implants? No Does the Jackson have Cerebral aneurysm clip(s)? I don't know [...] 07, 2024 Date Verified: SEP 07, 2024 Transfer Clerk E-Sig: Report: EXAMINATION: MRI OF THE CERVICAL [...] Interpreting Staff: HUANG TAI, Radiologist Verified by corporate planning manager for HUANG TAI /HUANG [facility] Sep 03, 2024 10:45 AM CHEST SINGLE(1) EW: LUIS MANUEL PERDOMO [id number] -1945 M Exm Date: SEP 03, 2024@10:45 Req Phys: FRANCK TURNER [facility] Loc: 5-MED/TEL/09-03-2024@10:56 Img Loc: [facility] Service: [facility] [place] [address] (Case [id number] COMPLETE)CHEST SINGLE(1) VIEW (RAD Detailed) CPT:16558 Proc Modifiers : PORTABLE EXAM Reason for Study: Eval volume status Clinical History: Report Status: Verified Date Reported: SEP 03, 2024 Date Verified: SEP 03, 2024 Transfer Clerk E-Sig: Report: EXAMINATION: SINGLE VIEW CHEST CLINICAL [...] Interpreting Staff: HUANG TAI Radiologist Verified by corporate planning manager for HUANG TAI /HUANG WHEATLE[facility] Aug 29, 2024 08:[address] HEAD W/O CONT: LUIS MANUEL PERDOMO [id number] -1945 M Exm Date: AUG 29, 2024@20:28 Req Phys: FELISA COLE Loc: ED/4P-12A (Req'g Loc) Img Loc: CT SCAN Service: [place] [address] (Case [id number] COMPLETE) CT HEAD W/O CONT (CT Detailed) CPT:99676 Reason for Study: SEE CLINICAL HISTORY Clinical History: REASON FOR SEND OUT: ATTENDING PHYSICIAN NAME: New transient neurological s/s - suspected TIA HISTORY/REASON FOR EXAM: confusion Report Status: Verified Date Reported: AUG 29, 2024 Date Verified: AUG 29, 2024 Transfer Clerk E-Sig: Report: HISTORY confusion COMPARISON No prior [...] Staff: ABDIRAHMAN CROW Staff Physician Verified by corporate planning manager for ABDIRAHMAN CROW /[facility] Pathology Reports: +/- 30 days [...] Reporting Lab: [facility] [CLIA# [id number]] [address] [place] [id number] Accession [UID]: [id number] [[id number]] Received: Sep 03, 2024@14:02 Collection sample: URINE, [...] Performed By: [facility] [CLIA# [id number]] [address] [place] [id number] MAGDY CALABRESE-Sav [facility] Sep 02, 2024 06:00 PM LR MICROBIOLOGY RE PORT: Reporting Lab: [facility] [CLIA# [id number]] [address] [place] [id number] Accession [UID]: [id number] [[id number]] Received: Sep 02, 2024@18:07 Collection sample: BLD CULTURE BOTTLES Collection date: Sep 02, 2024 18:00 Site/Specimen: BLOOD Provider: FRANCK TURNER Comment on specimen: L HAND Test(s) ordered: CULTURE, BLOOD................ completed: Sep 08, 2024 * BACTERIOLOGY FINAL REPORT => Sep 08, 2024 08:25 TECH CODE: [id number] Bacteriology Remark(s): Blood culture status=NO GROWTH (unless notified otherwise) 09/03/2024 AEROBIC: NO GROWTH ANAEROBIC: NO GROWTH =--=--=--=--=--=--=--=--=--=-- =--=--=--=--=--=--=--=--=--=-- =--=--=--=--=--=-- Performing Laboratory: Bacteriology Report Performed By: [facility] [CLIA# [id number]] [address] [place], [place] [address] MAGDY CALABRESE [facility] Aug 29, 2024 10:18 PM LR MICROBIOLOGY RE PORT: Reporting Lab: [facility] [CLIA# [id number]] [address] [place], [place] [address] Accession [UID]: [id number] [[id number]] Received: Aug 29, 2024@22:18 Collection sample: URINE, CLEAN CATCH Collection date: Aug 29, 2024 22:18 Site/Specimen: URINE Provider: FELISA COLE Test(s) ordered: CULTURE, URINE................ completed: Aug 31, 2024 09:51 * BACTERIOLOGY FINAL REPORT => Aug 31, 2024 09:51 TECH CODE: [id number] Bacteriology Remark(s): NO GROWTH 08/30/2024 <10,000 CFU/ML. 08/31/2024 =--=--=--=--=--=--=--=--=--=-- =--=--=--=--=--=--=--=--=--=-- =--=--=--=--=--=-- Performing Laboratory: Bacteriology Report Performed By: [facility] [CLIA# [id number]] [address] [place] [address] MAGDY CALABRESE[facility] Encounter Notes: All associated encounter notes This section contains the clinical notes associated to the Encounter. Date/Time Encounter Note(s) Provider Source Sep 02, 2024 12:14 PM TRANSFER SUMMARIZA TION NOTE: LOCAL TITLE: INTERFACILITY TRANSFER NOTE STANDARD TITLE: TRANSFER SUMMARIZATION NOTE DATE OF NOTE: SEP 02, 2024@12:14 ENTRY DATE: SEP 02, 2024@12:14:44 AUTHOR: GRETCHEN HERNANDEZ COSIGNER: DIEGO GREENE URGENCY: STATUS: COMPLETED Department [facility] Inter-facility Transfer Form This form must be completed for all transfers out of [place] facilities. [facility] form 10-2649B Physician Certification and Patient Consent for Transfer must also be completed for all transfers. You may complete the VA form [id number] via [employer] consent library. SECTION I - DEMOGRAPHIC AND ELIGIBILITY INFORMATION PATIENT IDENTIFICATION: Patient Name: LUIS MANUEL PERDOMO SSN: [id number] PRIMARY SERVICE AREA: [facility] FOR [place] INPATIENT CARE: PRIMARY ELIGIBILTY CODE - NSC SERVICE CONNECTED % - NONE FOUND Jan Mr. LUIS MANUEL PERDOMO [address], [place] [address] Eligible for Travel/Special Mode? No DOES PATIENT HAVE ADVANCED DIRECTIVE? No If yes, SEND COPY WITH PATIENT. CODE STATUS: FULL CODE Level of Consciousness: Alert Oxygen Use: Yes If yes, 1L NC Vitals: Blood Pressure: 132/58 Heart Rate: 88 Respiratory Rate: 20 COVID-19: Cough: Yes SOA: Yes Respiratory issues: Yes Fever: No Flu-like symptoms: No Known exposure to individuals with confirmed COVID-19: No NOT traveled out of the country: No [place] was tested for COVID-19: Yes If positive screening determined, please direct OSH to transfer in mask. SECTION II - REASON FOR TRANSFER NATURE OF SERVICES NEEDED BY PATIENT REQUIRING TRANSFER (Identify) Diagnosis, Treatment, Return to primary service area, Acute Care SECTION III - TYPE AND LEVEL OF SERVICES REQUIRED 1. DIAGNOSIS NEW ONSET CHF, HYPONATREMIA, BILAT PNEUMONIA BED TYPE: TELE 2. LEVEL OF CARE PRIOR TO TRANSFER (ER, Outpatient, [place], ICU etc.) Emergency Department 3. DESCRIPTION OF TREATMENT PRIOR TO TRANSFER DUONEB X 2, 40MG IV LASIX, CXR 4. DESCRIPTION OF FURTHER SERVICES NEEDED EVALUATION AND TREATMENT OF HYPONATREMIA AND NEW ONSET CHF SECTION IV - CONDITION OF PATIENT ON TRANSFER 1. Is the patient medically stable for transfer? Yes DESCRIBE:(e.g. vital signs, significant history, physical findings, mental status, airway status, lab test etc.) BNP 1650, Na+ 127 2. Is the patient behaviorally stable for transfer? Yes DESCRIBE: A&O X 4 SECTION V - MODE/EQUIPMENT/STAFF REQUIREMENTS OF TRANSPORTATION 1. Describe Medically Appropriate Mode of Transportation/Equipment and Staff Requirements: Ambulance Ground CONTINUOUS TELE/O2 MONITORING 2. IV Medications or other treatments on Route: NA SECTION - INFORMATION TO BE SENT WITH PATIENT COPY OF SIGNED CONSENT, ER NOTE, OTHER (Imaging Studies,Lab reports,EKGs) MEDICATIONS GIVEN, LAB & RADIOLOGY REPORTS SECTION VII - ACCEPTING PHYSICIAN AND INSTITUTION DATE AND TIME OF INITIAL CONTACT: Aug@11:25 NAME AND DARNELL OF ACCEPTING PHYSICIAN DR GREENE- MEDSURG/TELE TELEPHONE NUMBER OF ACCEPTING PHYSICIAN [phone] NAME AND ADDRESS OF ACCEPTING FACILITY [facility], [address], [facility] [address] to REPORT GIVEN: Yes ACCEPTING PHYSICIAN HAS CONSENTED TO TRANSFER? Yes NAME OF ADDITIONAL CONTACT AT ACCEPTING FACILITY (optional) TELEPHONE NUMBER OF ADDITIONAL CONTACT SECTION VIII - REFERRING PHYSICIAN AND INSTITUTION NAME OF REFERRING FACILITY [facility] EMERGENCY DEPT CITY: [place] STATE: [place] NAME OF CONTACT: YONATHAN JUAN MANUEL SHOE REPAIRER TELEPHONE OR PAGER NUMBER: [phone] NAME AND DARNELL OF REFERRING PHYSICIAN DR JUVENTINO ANTUNEZ- EMERGENCY DEPT DATE AND TIME OF TRANSFER Aug@11:40 NURSE to NURSE REPORT ARRANGED: Yes TRANSPORTATION AUTHORIZED? No NON-VA MEDICAL SERVICES AUTHORIZED BY DUBBING MACHINE OPERATOR? Not applicable Patient/Legal Revenue Cycle Specialist consents to transfer: Yes VA FORM 10-2649B Physician Certification and Patient Consent for Transfer COMPLETED? Not applicable OUTSIDE HOSPITAL PATIENT CONSENT FOR TRANSFER COMPLETED? Yes ADDITIONAL COMMENTS: Inter-facility Infection Control Transfer Form Is the Patient currently in isolation? No Type of Isolation (check all that apply) Does Patient currently have an infection, colonization or a history of positive culture of a multidrug-resistant organism (MDRO) or other organism of epidemiological significance? Methicillin-Resistant Staphylococcus Aureus (MRSA): N/A Vancomycin Resistant Enterococcis (VRE): N/A Clostridium Difficile: N/A Acinetobacter, Multidrug-Resistant: N/A E coli, Klebsiella, Proteus Ect. W/extended Spectrum B-Lactamase (ESBL): N/A Carbapenemase Resistant Enterobacteriaceae (CRE): N/A Other: Does the Patient/Resident currently have any of the following? Is the Patient/Resident currently on antibiotics? No Antibiotic and Dose: Treatment for: Start Date: Anticipated Stop Date: Vaccine Influenza (seasonal): Date Administered (if known): Lot and Brand (if known): Year Administered (If exact date not known): Does Patient Self Report Receiving Vaccine? Pneumococcal Date Administered (if known): Lot and Brand (if known): Year Administered (If exact date not known): Does Patient Self Report Receiving Vaccine? Other Date Administered (if known): Lot and Brand (if known): Year Administered (If exact date not known): Does Patient Self Report Receiving Vaccine? If information communicated prior to transfer: Name and Phone of individual at receiving facility === THIS FORM MUST BE COMPLETED AND ELECTRONICALLY SIGNED BY THE REFERRING PHYSICIAN === /rosette/ Gretchen Hernandez MSN, director of strategic sales Nurse Coordinator Signed: 09/02/2024 12:22 /es/ DIEGO GREENE MD ATTENDING PHYSICIAN Cosigned: 09/02/2024 22:41 GRETCHEN HERNANDEZ-[facility] Sep 02, 2024 11:29 AM NONVA NOTE: LOCAL TITLE: COMMUNITY CARE-LARS SELF PRESENTING CARE COORD PLAN STANDARD TITLE: NONVA NOTE DATE OF NOTE: SEP 02, 2024@11:29 ENTRY DATE: SEP 02, 2024@12:07:52 AUTHOR: GRETCHEN HERNANDEZ EXP COSIGNER: URGENCY: STATUS: COMPLETED COMMUNITY CARE-LARS SELF PRESENTING CARE COORD PLAN NOTE Has ADDENDA Emergency Notification Intake Date Presenting to the Facility: Aug Method of Contact: Phone [facility] Name: Hospital: [facility] Address: City: [place] State: [place] Zip Code: Phone : [facility] Point of Contact: Name: YONATHAN JUAN MANUEL SHOE REPAIRER Phone: [phone] Chief complaint: SOA, WEAKNESS Primary Diagnosis: NEW ONSET CHF, BILAT PNEUMONIA, HYPONATREMIA Disposition Transfer Transfer to [place] Has the had a COVID-19 lab test performed? Yes The patient has a pending COVID-19 PCR lab result from a test collected at a location other than this [place]. Date collected: September 02, 2024 The [place] is stable for transfer. is requesting transfer to [place]. A [place] Bed is available A [place] Provider has accepted the Transfer Transfer forms have been completed. Life Sustaining Treatment Orders? Unknown Is Isolation needed? Unknown Comment: COVID PENDING Transportation arranged for: Aug Mode of Transportation: AMBULANCE GROUND Disclaimer: The determination of appropriate transportation to our facility is at the discretion of the sending facility and assumes full responsibility for the patient during travel. /es/ Gretchen Hernandez MSN, director of strategic sales Nurse Coordinator Signed: 09/02/2024 12:11 Receipt Acknowledged By: 09/02/2024 13:32 /es/ NICOL VIVAS for YULISSA HENDERSON 09/02/2024 ADDENDUM STATUS: COMPLETED 1257- COVID NEGATIVE 1325-PROVIDER CONTACT ED SHOE REPAIRERBRENDAN ABURTO [facility] CONTACTED WITH ROOM ASSIGNMENT OF 5TELE RM 557 AND TO PLEASE HAVE NURSE CALL REPORT WHEN AVAILABLE TO [phone] EXT [phone]. PLEASE CALL TRANSFER OFFICE IF ANY DIFFICUTLY/UNABLE TO CONNECT. /rosette/ Gretchen Hernandez MSN, director of strategic sales Nurse Coordinator Signed: 09/02/2024 13:30 GRETCHEN HERNANDEZ-[facility]
--- OUTSIDE RECORDS SUMMARY | 2024-09-02 12:26 | XMS_ITS ---
[facility] Encounter Summary Created on: September 22, 2024 LUIS MANUEL CHUNG : 1945 Sex: Male Author Name [facility] [place] Organization [facility] [place] Address [address] [place] [id number] Care Team Providers Care Treatment Counselor Name Role Phone YULISSA HENDERSON Primary Care [...] PLAN F Mar 24, 2014 PLAN F [id number] LUIS MANUEL CHUNG PATIENT BS [place] [employer] PREFERRED PROVIDER ORGANIZAT ION (PPO) [facility] SLE Sep 21, 2012 [id number] LUIS MANUEL CHUNG PATIENT [employer] ([id number]) PRESCRIPT ION WL3A Sep 21, 2012 [id number] LUIS MANUEL CHUNG PATIENT MEDICARE (WNR) MEDICARE (M) PART B Sep 21, 2012 PART B [id number] NOEMI CHUNG PATIENT MEDICARE (WNR) MEDICARE (M) PART A Jan 22, 2011 PART A [id number] NOEMI CHUNG PATIENT MEDICARE PART D (WNR) MEDICARE (M) PART D Mar 24, 2014 PART D [id number] LUIS MANUEL CHUNG PATIENT Selected Encounter This section includes the information on record at [place] for the Encounter. Date/Time Encounter Type Encounter Description Reason Provider Source Sep 02, 2024 04:26 PM Inpatient Visit HOSPITALIZATION ICD-10-CM E78.5 Hyperlipidemia, unspecified FRANCK TURNER IHStephen Encounter Template Text not used by [place] Assessments - Encounter Diagnoses This section includes the primary and secondary diagnoses documented for the Encounter. Date/Time Primary/Secondary Diagnosis Diagnosis Name Provider Source Sep 09, 2024 02:41 PM Diagnosis for Length of Stay Hypertensive heart disease with heart failure [facility] Sep 09, 2024 02:41 PM SECONDARY Acute on chronic diastolic (congestive) heart failure [facility] Sep 09, 2024 02:41 PM SECONDARY Acute respiratory failure with hypoxia [facility] Sep 09, 2024 02:41 PM SECONDARY Adult failure to thrive [facility] Sep 09, 2024 02:41 PM SECONDARY Athscl heart disease of [place] coronary artery w/o ang pctrs [facility] Sep 09, 2024 02:41 PM SECONDARY Benign prostatic hyperplasia without lower urinry tract symp [facility] Sep 09, 2024 02:41 PM SECONDARY Body mass index [BMI] 31.0-31.9, adult [facility] Sep 09, 2024 02:41 PM SECONDARY Chronic obstructive pulmonary disease, unspecified [facility] Sep 09, 2024 02:41 PM SECONDARY Constipation, unspecified [facility] Sep 09, 2024 02:41 PM SECONDARY Deficiency of vitamin E [facility] Sep 09, 2024 02:41 PM SECONDARY Disorientation, unspecified [facility] Sep 09, 2024 02:41 PM SECONDARY Do not resuscitate [facility] Sep 09, 2024 02:41 PM SECONDARY Gastro-esophageal reflux disease without esophagitis [facility] Sep 09, 2024 02:41 PM SECONDARY Hyperlipidemia, unspecified [facility] Sep 09, 2024 02:41 PM SECONDARY 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 [facility] Sep 09, 2024 02:41 PM SECONDARY Multiple sclerosis [facility] Sep 09, 2024 02:41 PM SECONDARY Oth disorders of plasma-protein metabolism, NEC [facility] Sep 09, 2024 02:41 PM SECONDARY Oth viral agents as the cause of diseases classd elswhr [facility] Sep 09, 2024 02:41 PM SECONDARY Other viral pneumonia [facility] Sep 09, 2024 02:41 PM SECONDARY Person awaiting admission to adequate facility elsewhere [facility] Sep 09, 2024 02:41 PM SECONDARY Personal history of malignant neoplasm of prostate [facility] Sep 09, 2024 02:41 PM SECONDARY Syndrome of inappropriate secretion of antidiuretic hormone [facility] Sep 09, 2024 02:41 PM SECONDARY Type 2 diabetes mellitus with diabetic neuropathy, unsp [facility] Sep 09, 2024 02:41 PM SECONDARY Unspecified macular degeneration [facility] Sep 09, 2024 02:41 PM SECONDARY Vitamin D deficiency, unspecified [facility] Plan of Treatment: Future Appointments (+ 6 months) and Future Tests (+/- 45 days) The Plan of Treatment section includes future care activities for the patient from all [facility]. This section includes future appointments and future orders which are active, pending or scheduled. Future Appointments This section includes appointments that were scheduled to occur 6 months from the date of the Encounter, up to a maximum of 20 appointments. The data comes from all [facility]. Appointment Date/Time Appointment Type Appointme nt Facility Name Sep 13, 2024 08:00 AM [facility] Sep 30, 2024 01:30 PM [facility] Active, Pending, and Scheduled Orders This section includes a listing of several types of active, pending, and scheduled orders, including clinic medications orders, diagnostic test orders, procedure orders and consult orders; where the start date of the order is 45 days before the date of the Encounter or 45 days after the date of theEncounter. The data comes from all [facility]. Test Date/Time Test Type Test Details Facility Name Sep 13, 2024 01:33 PM Consult Order [facility] Cons [facility] Lab Results: +/- 30 days of the encounter This section includes the Chemistry and Hematology Lab Results on record with [place] for the patient. Radiology Reports and Pathology Reports are provided separately, in subsequent sections. Lab Results This section contains the Chemistry/Hematology Results that were resulted 30 days before or 30 daysafter the date of the Encounter. Date/Time Source Result Type Result - Unit Interpretation Reference Range Specimen Type Comment Sep 09, 2024 12:16 PM [facility] GLUCOSE-HAND MONITOR CAPILLARY Specimen Type: CAPILLARY Comment: Test performed by: [id number] Meter #: [id number] Ordering Provider: FRANCK TURNER Report Released Date/Time: Sep 09, 2024 12:33 PM Reporting Lab: [address] [address] Performing Lab: [address] [address] GLUCOSE-HAND MONITOR 116 mg/dL H 71-Sep 09, 2024 06:07 AM [facility] GLUCOSE-HAND MONITOR CAPILLARY Specime n Type: CAPILLARY Comment: Test performed by: [id number] Meter #: [id number] Ordering Provider: FRANCK TURNER Report Released Date/Time: Sep 09, 2024 08:17 AM Reporting Lab: [address] [address] Performing Lab: [address] [address] GLUCOSE-HAND MONITOR 112 mg/dL H 71-99 Sep 08, 2024 09:13 PM [facility] GLUCOSE-HAND MONITOR CAPILLARY Specime n Type: CAPILLARY Comment: Test performed by: [id number] Meter #: [id number] Ordering Provider: FRANCK TURNER Report Released Date/Time: Sep 08, 2024 09:31 PM Reporting Lab: [address] [address] Performing Lab: [address] [address] GLUCOSE-HAND MONITOR 107 mg/dL H 71-99 Sep 08, 2024 03:49 PM [facility] GLUCOSE-HAND MONITOR CAPILLARY Specime n Type: CAPILLARY Comment: AAMIR RN notified Test performed by: [id number] Meter #: [id number] Ordering Provider: FRANCK TURNER Report Released Date/Time: Sep 08, 2024 04:33 PM Reporting Lab: [address] [address] Performing Lab: [address] [address] GLUCOSE-HAND MONITOR 162 mg/dL H -Sep 08, 2024 11:43 AM [facility] GLUCOSE-HAND MONITOR CAPILLARY Specime n Type: CAPILLARY Comment: AAMIR RN notified Test performed by: [id number] Meter #: [id number] Ordering Provider: FRANCK TURNER Report Released Date/Time: Sep 08, 2024 12:03 PM Reporting Lab: [place] [phone] Performing Lab: [place] [phone] GLUCOSE-HAND MONITOR 133 mg/dL H Sep 08, 2024 06:13 AM [facility] GLUCOSE-HAND MONITOR CAPILLARY Specime n Type: CAPILLARY Comment: Test performed by: [id number] Meter #: [id number] Ordering Provider: FRANCK TURNER Report Released Date/Time: Sep 08, 2024 06:46 AM Reporting Lab: [address] [address] Performing Lab: [address] [address] GLUCOSE-HAND MONITOR 104 mg/dL H -Sep 07, 2024 07:59 PM [facility] GLUCOSE-HAND MONITOR CAPILLARY Specime n Type: CAPILLARY Comment: Test performed by: [id number] Meter #: [id number] Ordering Provider: FRANCK TURNER Report Released Date/Time: Sep 07, 2024 09:05 PM Reporting Lab: [address] [address] Performing Lab: [address] [address] GLUCOSE-HAND MONITOR 107 mg/dL H 71-99 Sep 07, 2024 04:39 PM [facility] GLUCOSE-HAND MONITOR CAPILLARY Specime n Type: CAPILLARY Comment: Test performed by: [id number] Meter #: [id number] Ordering Provider: FRANCK TURNER Report Released Date/Time: Sep 07, 2024 05:09 PM Reporting Lab: [address] [address] Performing Lab: [address] [address] GLUCOSE-HAND MONITOR 105 mg/dL H -99 Sep 07, 2024 11:41 AM [facility] GLUCOSE-HAND MONITOR CAPILLARY Specime n Type: CAPILLARY Comment: Test performed by: [id number] Meter #: [id number] Ordering Provider: FRANCK TURNER Report Released Date/Time: Sep 07, 2024 12:41 PM Reporting Lab: [address] [address] Performing Lab: [address] [address] GLUCOSE-HAND MONITOR 144 mg/dL H -Sep 07, 2024 05:56 AM [facility] GLUCOSE-HAND MONITOR CAPILLARY Specime n Type: CAPILLARY Comment: Test performed by: [id number] Meter #: [id number] Ordering Provider: FRANCK TURNER Report Released Date/Time: Sep 07, 2024 06:31 AM Reporting Lab: [address] [address] Performing Lab: [address] [address] GLUCOSE-HAND MONITOR 96 mg/dL -99 Sep 06, 2024 08:10 PM [facility] GLUCOSE-HAND MONITOR CAPILLARY Specime n Type: CAPILLARY Comment: Test performed by: [id number] Meter #: [id number] Ordering Provider: FRANCK TURNER Report Released Date/Time: Sep 06, 2024 08:52 PM Reporting Lab: [address] [address] Performing Lab: [address] [address] GLUCOSE-HAND MONITOR 124 mg/dL H 71-99 Sep 06, 2024 04:27 PM [facility] GLUCOSE-HAND MONITOR CAPILLARY Specime n Type: CAPILLARY Comment: Test performed by: [id number] Meter #: [id number] Ordering Provider: FRANCK TURNER Report Released Date/Time: Sep 06, 2024 05:15 PM Reporting Lab: [address] [address] Performing Lab: [address] [address] GLUCOSE-HAND MONITOR 107 mg/dL H 71-99 Sep 06, 2024 12:12 PM [facility] GLUCOSE-HAND MONITOR CAPILLARY Specime n Type: CAPILLARY Comment: Test performed by: [id number] Meter #: [id number] Ordering Provider: FRANCK TURNER Report Released Date/Time: Sep 06, 2024 12:29 PM Reporting Lab: [address] [address] Performing Lab: [address] [address] GLUCOSE-HAND MONITOR 181 mg/dL H 71-99 Sep 06, 2024 06:13 AM [facility] GLUCOSE-HAND MONITOR CAPILLARY Specime n Type: CAPILLARY Comment: Test performed by: [id number] Meter #: [id number] Ordering Provider: FRANCK TURNER Report Released Date/Time: Sep 06, 2024 06:36 AM Reporting Lab: [address] [address] Performing Lab: [address] [address] GLUCOSE-HAND MONITOR 102 mg/dL H 71-99 Sep 05, 2024 08:47 PM [facility] GLUCOSE-HAND MONITOR CAPILLARY Specime n Type: CAPILLARY Comment: Test performed by: [id number] Meter #: [id number] Ordering Provider: FRANCK TURNER Report Released Date/Time: Sep 06, 2024 02:13 AM Reporting Lab: [address] [address] Performing Lab: [address] [address] GLUCOSE-HAND MONITOR 103 mg/dL H 71-99 Sep 05, 2024 04:40 PM [facility] GLUCOSE-HAND MONITOR CAPILLARY Specime n Type: CAPILLARY Comment: AAMIR RN notified Test performed by: [id number] Meter #: [id number] Ordering Provider: FRANCK TURNER Report Released Date/Time: Sep 05, 2024 05:11 PM Reporting Lab: [address] [address] Performing Lab: [address] [address] GLUCOSE-HAND MONITOR 113 mg/dL H -Sep 05, 2024 12:06 PM [facility] GLUCOSE-HAND MONITOR CAPILLARY Specime n Type: CAPILLARY Comment: Test performed by: [id number] Meter #: [id number] Ordering Provider: FRANCK TURNER Report Released Date/Time: Sep 05, 2024 12:23 PM Reporting Lab: [address] [address] Performing Lab: [address] [address] GLUCOSE-HAND MONITOR 115 mg/dL H -Sep 05, 2024 06:26 AM [facility] GLUCOSE-HAND MONITOR CAPILLARY Specime n Type: CAPILLARY Comment: AAMIR Correction Dose Test performed by: [id number] Meter #: [id number] Ordering Provider: FRANCK TURNER Report Released Date/Time: Sep 05, 2024 06:43 AM Reporting Lab: [address] [address] Performing Lab: [address] [address] GLUCOSE-HAND MONITOR 111 mg/dL H -99 Sep 04, 2024 08:59 PM [facility] GLUCOSE-HAND MONITOR CAPILLARY Specime n Type: CAPILLARY Comment: AAMIR RN notified Test performed by: [id number] Meter #: [id number] Ordering Provider: FRANCK TURNER Report Released Date/Time: Sep 04, 2024 09:36 PM Reporting Lab: [address] [address] Performing Lab: [address] [address] GLUCOSE-HAND MONITOR 123 mg/dL H -Sep 04, 2024 04:41 PM [facility] GLUCOSE-HAND MONITOR CAPILLARY Specime n Type: CAPILLARY Comment: AAMIR RN notified Test performed by: [id number] Meter #: [id number] Ordering Provider: FRANCK TURNER Report Released Date/Time: Sep 04, 2024 05:03 PM Reporting Lab: [address] [address] Performing Lab: [address] [address] GLUCOSE-HAND MONITOR 118 mg/dL H Sep 04, 2024 12:36 PM [facility] GLUCOSE-HAND MONITOR CAPILLARY Specime n Type: CAPILLARY Comment: AAMIR RN notified Test performed by: [id number] Meter #: [id number] Ordering Provider: FRANCK TURNER Report Released Date/Time: Sep 04, 2024 12:53 PM Reporting Lab: [address] [address] Performing Lab: [address] [address] GLUCOSE-HAND MONITOR 129 mg/dL H Sep 04, 2024 12:03 PM [facility] RESPIRATORY VIRUS PANEL (BIOFIRE) NASOPHARYN X Specimen Type: NASOPHARYNX Comment: ~For Test: RESPIRATORY VIRUS PANEL (BIOFIRE) ~ORDER READ BACK TO: FRANCK TURNER 09/04/24@11:30 Ordering Provider: FRANCK TURNER Report Released Date/Time: Sep 04, 2024 11:33 AM Reporting Lab: [address] [address] Performing Lab: [address] [address] ADENOVIRUS (BIOFIRE) Not Detected -Not D etected [...] Detected Sep 04, 2024 06:55 AM [facility] MAGNESIUM PLASMA Specimen Type: PLASM A [...] Sep 03, 2024 11:10 AM Reporting Lab: [address] [address] Performing Lab: [address] [address] MAGNESIUM 1.8 mg/dL 1.6-2.6 Sep 04, 2024 06:55 AM [facility] PANEL 1 PLASMA Specimen [...] Sep 03, 2024 11:10 AM Reporting Lab: [address] [address] Performing Lab: [address] [address] CREATININE 0.75 mg/dL 0.72-1.25 UREA NITROGEN 13 mg/dL 9-25 GLUCOSE 105 mg/dL H 74-100 SODIUM 128 mmol/L L 136-145 POTASSIUM 3.9 mmol/L 3.5-5.1 CHLORIDE 99 mmol/L 98-107 CO2 21 mmol/L L 22-29 CALCIUM 8.0 mg/dL L 8.4-10.2 ANION GAP 8 meq/L 3-19 eGFR (CKD-EPI) >90 Sep 04, 2024 06:02 AM [facility] GLUCOSE-HAND MONITOR CAPILLARY Specime n Type: CAPILLARY Comment: Test performed by: [id number] Meter #: [id number] Ordering Provider: FRANCK TURNER Report Released Date/Time: Sep 04, 2024 06:28 AM Reporting Lab: [address] [address] Performing Lab: [address] [address] GLUCOSE-HAND MONITOR 114 mg/dL H 71-99 Sep 03, 2024 05:19 PM [facility] GLUCOSE-HAND MONITOR CAPILLARY Specime n Type: CAPILLARY Comment: Test performed by: [id number] Meter #: [id number] Ordering Provider: FRANCK TURNER Report Released Date/Time: Sep 03, 2024 05:37 PM Reporting Lab: [address] [address] Performing Lab: [address] [address] GLUCOSE-HAND MONITOR 124 mg/dL H -Sep 03, 2024 04:41 PM [facility] GLUCOSE-HAND MONITOR CAPILLARY Specime n Type: CAPILLARY Comment: Test performed by: [id number] Meter #: [id number] Ordering Provider: FRANCK TURNER Report Released Date/Time: Sep 03, 2024 06:09 PM Reporting Lab: [address] [address] Performing Lab: [address] [address] GLUCOSE-HAND MONITOR 112 mg/dL H Sep 03, 2024 01:35 PM [facility] URINE LYTES URINE Specimen Type : URINE Comment: ~Altered mental status with no identifiable cause Ordering Provider: FRANCK TURNER Report Released Date/Time: Sep 02, 2024 04:44 PM Reporting Lab: [address] [address] Performing Lab: [address] [address] SODIUM 130 mmol/L POTASSIUM 47.6 mmol/L CHLORIDE 137 mmol/L Sep 03, 2024 01:35 PM [facility] CREATININE URINE Specimen Type: URINE Comment: ~Altered mental status with no identifiable cause Ordering Provider: FRANCK TURNER Report Released Date/Time: Sep 02, 2024 04:44 PM Reporting Lab: [address] [address] Performing Lab: [address] [address] CREATININE 150.9 mg/dL Sep 03, 2024 01:35 PM [facility] OSMOLALITY URINE Specimen Type: URINE Comment: ~Altered mental status with no identifiable cause Ordering Provider: FRANCK TURNER Report Released Date/Time: Sep 02, 2024 04:44 PM Reporting Lab: [address] [address] Performing Lab: [address] [address] OSMOLALITY 522 mosm/kg 38-1400 Sep 03, 2024 01:35 PM [facility] UREA NITROGEN URINE Specimen Type : URINE Comment: ~Altered mental status with no identifiable cause Ordering Provider: FRANCK TURNER Report Released Date/Time: Sep 02, 2024 04:44 PM Reporting Lab: [address] [address] Performing Lab: [address] [address] UREA NITROGEN 320 mg/dL Sep 03, 2024 01:35 PM [facility] URINALYSIS WITH REFLEX TO CULTURE URINE Specimen Type: URINE Comment: ~Altered mental status with no identifiable cause Ordering Provider: FRANCK TURNER Report Released Date/Time: Sep 02, 2024 04:44 PM Reporting Lab: [address] [address] Performing Lab: [address] [address] URINE COLOR Yellow Colorless-Yellow APPEARANCE CLOUDY H [...] Sep 03, 2024 11:58 AM [facility] GLUCOSE-HAND MONITOR CAPILLARY Specime n Type: CAPILLARY Comment: AAMIR DEXTER notified Test performed by: [id number] Meter #: [id number] Ordering Provider: FRANCK TURNER Report Released Date/Time: Sep 03, 2024 12:15 PM Reporting Lab: [address] [address] Performing Lab: [address] [address] GLUCOSE-HAND MONITOR 135 mg/dL H 99 Sep 03, 2024 07:09 AM [facility] GLUCOSE-HAND MONITOR CAPILLARY Specime n Type: CAPILLARY Comment: Test performed by: [id number] Meter #: [id number] Ordering Provider: FRANCK TURNER Report Released Date/Time: Sep 03, 2024 07:26 AM Reporting Lab: [address] [address] Performing Lab: [place] [phone] GLUCOSE-HAND MONITOR 120 mg/dL H Sep 03, 2024 07:05 AM [facility] CBC/PLT BLOOD Specimen Type: BLOOD No comment entered. Ordering Provider: FRANCK TURNER Report Released Date/Time: Sep 02, 2024 04:29 PM Reporting Lab: [address] [address] Performing Lab: [address] [address] WBC 6.9 10*3/uL 5.0-10.0 RBC 3.48 10*6/uL L 4.6-6.2 HGB 9.5 g/dL L 14.0-18.0 HCT 29.1 L 42.0-52.0 MCV 83.6 fL 80.0-94.0 MCH 27.3 pg 27.0-31.0 MCHC 32.6 g/dL 32.0-36.0 PLT 258 10*3/uL 150-450 MPV 10.3 fL 9.0-13.1 RDW 14.8 11.0-16.0 NRBC 0.0 0.0-0.0 Sep 03, 2024 07:05 AM [facility] MAGNESIUM PLASMA Specimen Type: PLASM A Comment: [...] Sep 02, 2024 04:29 PM Reporting Lab: [address] [address] Performing Lab: [address] [address] MAGNESIUM 1.7 mg/dL 1.6-2.6 Sep 03, 2024 07:05 AM [facility] PANEL 1 PLASMA Specimen [...] Sep 02, 2024 04:29 PM Reporting Lab: [address] [address] Performing Lab: [address] [address] CREATININE 0.82 mg/dL 0.72-1.25 UREA NITROGEN 12 mg/dL 9-25 GLUCOSE 109 mg/dL H 74-100 SODIUM 129 mmol/L L 136-145 POTASSIUM 4.2 mmol/L 3.5-5.1 CHLORIDE 99 mmol/L 98-107 CO2 21 mmol/L L 22-29 CALCIUM 8.1 mg/dL L 8.4-10.2 ANION GAP 9 meq/L 3-19 eGFR (CKD-EPI) 90 Sep 03, 2024 07:05 AM [facility] GLYCOHEMOGLOBIN BLOOD Specimen Type: BLOOD Comment: Prediabetes: 5.7%-6.4% Diabetes: >= 6.5% [facility] guidelines for A1c interpretation: Glycemic control targets are based on Shared Decision Making between clinicians and patients. Criteria used to establish an A1c target recommendation can be found at https://www.id.gov/qualityandpatientsafety/ and include the use of result accuracy [...] 8.73 and 9.27. Ref: https://ngsp.org/CAPdata.asp. The in-house [employer] D-100 analyzer has a historical CV <= 2%. Contact the laboratory for further performance characteristics of this assay. Ordering Provider: FRANCK TURNER Report Released Date/Time: Sep 02, 2024 04:29 PM Reporting Lab: [address] [address] Performing Lab: [place] [phone] GLYCOHEMOGLOBIN 5.6 4.4-5.6 Sep 03, 2024 07:05 AM [facility] OSMOLALITY SERUM Specimen Type: SERUM No comment entered. Ordering Provider: FRANCK TURNER Report Released Date/Time: Sep 02, 2024 04:44 PM Reporting Lab: [address] [address] Performing Lab: [place] [phone] OSMOLALITY 271 mosm/kg L 280-300 Sep 02, 2024 08:15 PM [facility] GLUCOSE-HAND MONITOR CAPILLARY Specime n Type: CAPILLARY Comment: AAMIR RN notified Test performed by: [id number] Meter #: [id number] Ordering Provider: FRANCK TURNER Report Released Date/Time: Sep 02, 2024 08:57 PM Reporting Lab: [place] [phone] Performing Lab: [address] [address] GLUCOSE-HAND MONITOR 126 mg/dL H -Sep 02, 2024 06:10 PM [facility] MRSA SURVL NARES DNA NARES Specime n [...] Sep 02, 2024 05:12 PM Reporting Lab: [address] [address] Performing Lab: [address] [address] MRSA SURVL NARES DNA Negative Negative Sep 02, 2024 05:36 PM [facility] GLUCOSE-HAND MONITOR CAPILLARY Specime n Type: CAPILLARY Comment: Test performed by: [id number] Meter #: [id number] Ordering Provider: FRANCK TURNER Report Released Date/Time: Sep 02, 2024 05:53 PM Reporting Lab: [address] [address] Performing Lab: [address] [address] GLUCOSE-HAND MONITOR 127 mg/dL H -99 Aug 29, 2024 10:04 PM [facility] URINALYSIS WITH REFLEX TO CULTURE URINE Specimen Type: URINE Comment: ~For Test: URINALYSIS WITH REFLEX TO CULTURE ~REORDER Ordering Provider: FELISA COLE Report Released Date/Time: Aug 29, 2024 09:36 PM Reporting Lab: [address] [address] Performing Lab: [address] [address] URINE COLOR Yellow Colorless-Yellow APPEARANCE Clear Clear [...] /[LPF] 0-28 Aug 29, 2024 08:32 PM [facility] HIGH SENSITIVITY TROPONIN I PLASMA Specimen Ty [...] 29, 2024 07:55 PM Reporting Lab: [facility] [address] [facility] [address] Performing Lab: [address] [address] HIGH SENSITIVITY TROPONIN I 7 4-35 Aug 29, 2024 08:32 PM [facility] CBC/PLT BLOOD Specimen Type: BLOOD No comment entered. Ordering Provider: FELISA COLE Report Released Date/Time: Aug 29, 2024 07:55 PM Reporting Lab: [address] [address] Performing Lab: [address] [address] WBC 11.2 10*3/uL H 5.0-10.0 RBC 3.97 10*6/uL L 4.6-6.2 HGB 10.9 g/dL L 14.0-18.0 HCT 33.5 L 42.0-52.0 MCV 84.4 fL 80.0-94.0 MCH 27.5 pg 27.0-31.0 MCHC 32.5 g/dL 32.0-36.0 PLT 230 10*3/uL 150-450 MPV 10.2 fL 9.0-13.1 RDW 14.6 11.0-16.0 NRBC 0.0 0.0-0.0 Aug 29, 2024 08:32 PM [facility] PANEL 5 PLASMA Specimen Type: PLASM A [...] I information resource can be reached in [facility] in the Tools menu, under the Education [...] Aug 29, 2024 07:55 PM Reporting Lab: [address] [address] Performing Lab: [address] [address] CREATININE 0.85 mg/dL 0.72-1.25 UREA NITROGEN 15 [...] 18 /min 95 % 0 [place] [facility] Sep 02, 2024 05:01 PM 0 [place] [facility] Advance Directives: All historical and current Section Date Range: From patient's date of to the date document was created. This section includes ALL of a patient's completed or amended [place] Advance and Rescinded Directives. The entries below indicate that a directive exists for the patient, but an actual copy is not included with this document. The data comes from all AR facilities. Date Advance Directives Provider Source Mar 08, 2024 ADVANCE DIRECTIVE DISCUSSION [facility] Radiology Reports: +/- 30 days of the [...] the Encounter. The data comes from all [place] treatment facilities. Date/Time Radiology Report Provider Source Sep 06, 2024 01:40 PM MRI BRAIN W & W/O: LUIS MANUEL CHUNG [id number] -1945 M Exm Date: SEP 06, 2024@13:40 Req Phys: FRANCK TURNER [facility] Loc: 5-MED/TEL/09-06-2024@19:09 Img Loc: [facility] IM[facility]ING Service: [place] [address] (Case [id number] COMPLETE) MRI BRAIN W & W/O (MRI Detailed) CPT:45045 Contrast Media : Gadolinium Reason for Study: SEE CLINICAL HISTORY Pharmaceutical: GADOTERIDOL 279.3MG/ML 20ML INJ, 19ml Clinical History: MRI Screening (Required): IMPLANTED DEVICE DOCUMENTATION IMPLANTED DEVICE DOCUMENTATION NOT FOUND Does the have any Cardiac Implants? None Does the Wilsey have any implanted stimulators? None Does the have cochlear implants? No Does the Wilsey have Cerebral aneurysm clip(s)? I don't know Does the Wilsey have any shrapnel? I don't know If yes, where in your body? Please list other implants not listed above: MRI table has a weight limit of 551 lbs. Wilsey's Weight: *212 lb [96.16 kg] (09/04/2024 05:19) Is this patient claustrophobic?: No REASON FOR EXAM:MULTIPLE SCLEROSIS (indicate suspected or established) PERTINENT PATIENT HISTORY: MS c/f for flare Risk factors for GADOLINIUM NEPHROGENIC SYSTEMIC SCLEROSIS: Report Status: Verified Date Reported: SEP 06, 2024 Date Verified: SEP 06, 2024 Court Operations Clerk E-Sig: Report: MRI brain without and [...] Staff: ARCENIO LEYVA, Staff Radiologist Verified by fourdrinier machine tender for ARCENIO LEYVA /ARCENIO AVILA [facility]SON-CDD [facility] Sep 06, 2024 01:40 PM MRI C SPINE W & W/ O CONTRAST(FURTHER SEQUENCES): LUIS MANUEL CHUNG [id number] -1945 M Exm Date: SEP 06, 2024@13:40 Req Phys: FRANCK TURNER [facility] Loc: 5-MED/TEL/09-07-2024@06:42 Img Loc: [facility] Service: [place] [address] (Case [id number] COMPLETE) MRI C SPINE W & W/O CONTRAST(FURT(MRI Detailed) CPT:71601 Contrast Media : Gadolinium Reason for Study: SEE CLINICAL HISTORY Pharmaceutical: GADOTERIDOL 279.3MG/ML 20ML INJ, 19ml Clinical History: STATUS OF PLAIN FILMS:Not performed (Provide justification for MR W/O prior plain films below.) MRI for MS MRI Screening (Required): IMPLANTED DEVICE DOCUMENTATION IMPLANTED DEVICE DOCUMENTATION NOT FOUND Does the have any Cardiac Implants? None Does the Wilsey have any implanted stimulators? None Does the have cochlear implants? No Does the have Cerebral aneurysm clip(s)? I don't know Does the Wilsey have any shrapnel? I don't know If yes, where in your body? Please list other implants not listed above: MRI table has a weight limit of 551 lbs. Wilsey's Weight: *212 lb [96.16 kg] (09/04/2024 05:19) Is this patient claustrophobic?: No REASON FOR EXAM: MULTIPLE SCLEROSIS (indicate suspected or established) PERTINENT PATIENT HISTORY: MS c/f flare Risk factors for GADOLINIUM NEPHROGENIC SYSTEMIC SCLEROSIS: Report Status: Verified Date Reported: SEP 07, 2024 Date Verified: SEP 07, 2024 Court Operations Clerk E-Sig: Report: EXAMINATION: MRI OF THE [...] Interpreting Staff: HUANG TAI, Radiologist Verified by fourdrinier machine tender for HUANG TAI /HUANG WHEATLEY-MALKA [facility] Sep 03, 2024 10:45 AM CHEST SINGLE(1) EW: LUIS MANUEL CHUNG [id number] -1945 M Ex Date: SEP 03, 2024@10:45 Req Phys: FRANCK TURNER [facility] Loc: 5-MED/TEL/09-03-2024@10:56 Img Loc: CDD RADIOLOGY Service: [place] [address] (Case [id number] COMPLETE)CHEST SINGLE(1) VIEW (RAD Detailed) CPT:18432 Proc Modifiers : PORTABLE EXAM Reason for Study: Eval volume status Clinical History: Report Status: Verified Date Reported: SEP 03, 2024 Date Verified: SEP 03, 2024 Court Operations Clerk E-Sig: Report: EXAMINATION: SINGLE VIEW CHEST [...] Interpreting Staff: HUANG TAI, Radiologist Verified by fourdrinier machine tender for HUANG TAI /HUANG WHEATLEY-Sav [facility] Aug 29, 2024 08:[address] HEAD W/O CONT: LUIS MANUEL CHUNG [id number] -1945 M Exm Date: AUG 29, 2024@20:28 Req Phys: FELISA COLE Loc: ED/4P-12A (Req'g Loc) Img Loc: CT SCAN Service: [place] [address] (Case [id number] COMPLETE) CT HEAD W/O CONT (CT Detailed) CPT:13516 Reason for Study: SEE CLINICAL HISTORY Clinical History: REASON FOR SEND OUT: ATTENDING PHYSICIAN NAME: New transient neurological s/s - suspected TIA HISTORY/REASON FOR EXAM: confusion Report Status: Verified Date Reported: AUG 29, 2024 Date Verified: AUG 29, 2024 Court Operations Clerk E-Sig: Report: HISTORY confusion COMPARISON No [...] Staff: ABDIRAHMAN DAVIDSON, Staff Physician Verified by fourdrinier machine tender for ABDIRAHMAN DAVIDSON /ABDIRAHMAN [facility] Pathology Reports: +/- 30 days of [...] the Encounter. The data comes from all [place] treatment facilities. Date/Time Pathology Report Provider Source Sep 03, 2024 01:35 PM LR MICROBIOLOGY RE PORT: Reporting Lab: [facility] [CLIA# [id number]] [address] [place] [id number] Accession [UID]: [id number] [[id number]] Received: Sep 03, 2024@14:02 Collection sample: URINE, [...] [facility] [CLIA# [id number]] [address] [place] [id number] MAGDY [facility]ABRESE [facility] Sep 02, 2024 06:00 PM LR MICROBIOLOGY RE PORT: Reporting Lab: [facility] [IA# [id number]] [address] [place] [id number] Accession [UID]: [id number] [[id number]] Received: Sep 02, 2024@18:07 Collection sample: BLD CULTURE BOTTLES Collection date: Sep 02, 2024 18:00 Site/Specimen: BLOOD Provider: FRANCK TURNER Comment on specimen: L HAND Test(s) ordered: CULTURE, BLOOD................ completed: Sep 08, 2024 * BACTERIOLOGY FINAL REPORT => Sep 08, 2024 08:25 TECH CODE: [id number] Bacteriology Remark(s): Blood culture status=NO GROWTH (unless notified otherwise) 09/03/2024 AEROBIC: NO GROWTH ANAEROBIC: NO GROWTH =--=--=--=--=--=--=--=--=--=-- =--=--=--=--=--=--=--=--=--=-- =--=--=--=--=--=-- Performing Laboratory: Bacteriology Report Performed By: [facility] [CLIA# [id number]] [address] [place] [phone] MAGDY CALABRESE [facility] Aug 29, 2024 10:18 PM LR MICROBIOLOGY RE PORT: Reporting Lab: [facility] [IA# [id number]] [address] [place] [id number] Accession [UID]: [id number] [[id number]] Received: Aug 29, 2024@22:18 Collection sample: URINE, CLEAN CATCH Collection date: Aug 29, 2024 22:18 Site/Specimen: URINE Provider: FELISA COLE Test(s) ordered: CULTURE, URINE................ completed: Aug 31, 2024 09:51 * BACTERIOLOGY FINAL REPORT => Aug 31, 2024 09:51 TECH CODE: [id number] Bacteriology Remark(s): NO GROWTH 08/30/2024 <10,000 CFU/ML. 08/31/2024 =--=--=--=--=--=--=--=--=--=-- =--=--=--=--=--=--=--=--=--=-- =--=--=--=--=--=-- Performing Laboratory: Bacteriology Report Performed By: [facility] [CLIA# [id number]] [address] [place] [address] MAGDY CALABRESE [facility] Encounter Notes: All associated encounter notes This section contains the clinical notes associated to the Encounter. Date/Time Encounter Note(s) Provider Source Sep 14, 2024 10:57 AM ADDENDUM: LOCAL TITLE: Addendum STANDARD TITLE: ADDENDUM DATE OF NOTE: SEP 14, 2024@10:57:36 ENTRY DATE: SEP 14, 2024@10:57:38 AUTHOR: SARA BECERRIL EXP COSIGNER: URGENCY: STATUS: COMPLETED Schedule in [facility] MS clinic on 10/07, OB AT 1545. Please notify patient. /rosette/ JOSELITO Bar RN [facility] Neurology Rda Signed: 09/14/2024 10:58 Receipt Acknowledged By: 09/15/2024 16:19 /rosette/ ISMAEL JOSEPH ADVANCED PUFF IRON OPERATOR --- Original Document --- 09/07/24 NEUROLOGY INPATIENT PROGRESS NOTE: Neurology Consult Follow-up Note: Summary:is a 79yo w/PMH of GERD, multiple sclerosis (dx in 2016 in [place]), prostate cancer, T2DM, HLD, HTN, COPD, Left eye macular degeneration. He has been having chronic weakness of his lower extremities (left more than right at baseline) and mostly non ambulatory at baseline. He has been followed outpatient by various neurologists and on Ocrevus infusion. He was admitted to OSH on 09/01 with falls and inability to walk and found to have pneumonia and UTI. There was some concern for MS flare at the outside hospital and he was reportedly given high dose steroids. [facility] currently admitted to medicine for workup and tx of HF, pneumonia and UTI. Neurology was consulted on 09/03 given concern for MS flare. Rec included obtaining MRI head & C-spine w/ and w/o contrast SUBJECTIVE: Pt's was present at bedside and agrees that pt's mentation has improved significantly. We discussed following up in [place] clinic and answered all her questions. OBJECTIVE: VITALS: Tc: 97.3 F [36.3 C] (09/07/2024 08:30) Tmax: HR: 64 (09/07/2024 11:51) RR: 20 (09/07/2024 08:30) BP: 87/52 (09/07/2024 11:51) SpO2: SEP 07, 2024@11:51 -- PULSE OXIMETRY: 92 PHYSICIAL EXAM: GENERAL: no acute distress, cooperative SKIN: warm and dry, no rashes, wounds, ulcers EYES: conjunctiva clear, EOMI, PERRLA ENT: intact, mucous membranes moist, no apparent injury HEAD/NECK: neck supple, no apparent injury RESPIRATORY/THORAX: symmetric chest rise, nonlabored breathing CARDIOVASCULAR: no JVD, no edema GASTROINTESTINAL: nondistended MUSCULOSKELETAL: no joint swelling, no pain to touch PSYCHOLOGICAL: appropriate mood and behavior NEUROLOGICAL: Mental Status: A&O x 3, interactive, able to follow commands Speech: Intact Articulation CN 2-12: II - VF grossly intact III, IV, - PERRLA, EOMI V - Facial sensation intact VII - Brow raise and smile symmetrical VIII - Auditory acuity intact IX, X - Palate elevation symmetric, uvula midline XI - SCM and Trapezius strength intact XII - Tongue protrudes midline Motor: RUE: 5/5 LUE: 5/5 RLE: 4/5 LLE: 3/5- limited by hip pain Sensory: intact light touch throughout Reflexes: 2+ throughout Coordination: no ataxia with [id number] Gait/Station: Deferred MEDS: Active Inpatient Medications (including Supplies): Active Inpatient Medications Status 1) ACETAMINOPHEN TAB 975MG PO TID ACTIVE Indication: FOR PAIN/FEVER 2) ASPIRIN TAB,EC 81MG PO DAILY ACTIVE Indication: FOR HEART 3) ATORVASTATIN TAB 20MG PO QHS ACTIVE Indication: FOR CHOLESTEROL 4) BISOPROLOL TAB 5MG PO DAILY ACTIVE Indication: FOR BLOOD PRESSURE/HEART 5) DEXTROSE 15GM/32ML PKT GEL,ORAL 1 PACKET (15GM) PO Q15MIN ACTIVE PRN Give one tube (15gm) for BG 51-70mg/dl. Perform fingerstick 15 minutes after treatment; notify treating provider. Indication: FOR LOW BLOOD SUGAR 6) DEXTROSE 15GM/32ML PKT GEL,ORAL 2 PACKETS (30GM) PO Q15MIN ACTIVE PRN Give two tubes (30g) for BG 50 mg/dL and below. Perform fingerstick 15 minutes after treatment; notify treating provider. Indication: FOR LOW BLOOD SUGAR 7) DEXTROSE 50% INJ,SOLN 25ML (1/2 AMP/SYRINGE) IV Q15MIN PRN ACTIVE Give 50% dextrose 25 mL IV (over 3 min) STAT for BG of 51 - 70 mg/dL or NPO. Perform fingerstick 15 minutes after treatment; notify treating provider. Indication: FOR LOW BLOOD SUGAR 8) DEXTROSE 50% INJ,SOLN 50ML (1 AMP/SYRINGE) IV Q15MIN PRN ACTIVE Give 50% dextrose 50 mL IV (over 3 min) STAT for BG of 50 mg/dL and below or unresponsive or NPO. Perform fingerstick 15 minutes after treatment; notify treating provider. Indication: FOR LOW BLOOD SUGAR 9) DICLOFENAC NA 1% GEL,TOP 2 GRAM STRIP TOP Q6H PRN ACTIVE Indication: FOR PAIN 10) ENOXAPARIN (LMW HEPARIN) INJ 40MG/0.4ML SQ Q24H Instructions ACTIVE too long. See order details for full text. Indication: TO THIN BLOOD 11) FAMOTIDINE (famOTidine) TAB 20MG PO BID PRN ACTIVE Indication: FOR STOMACH 12) GABAPENTIN CAP,ORAL 200MG PO TID ACTIVE Indication: FOR NERVE PAIN 13) GLUCAGON INJ 1MG/1ML SC Q15MIN PRN Instructions too long. ACTIVE See order details for full text. Indication: FOR LOW BLOOD SUGAR 14) INSULIN ASPART (NOVOLOG) INJ CORRECTION DOSE:SEE COMMENTS SQ ACTIVE AT MEAL END Give after pt fed WITH scheduled meal/prandial insulin(if ordered) If premeal FSBS 131-180=1 unit; 181-230=2 unit; 231-280=3 unit; 281-330=4 unit; >330=5 unit. DO NOT HOLD for NPO. Indication: FOR BLOOD SUGAR 15) LISINOPRIL TAB 5MG PO DAILY ACTIVE Indication: FOR HIGH BLOOD PRESSURE 16) MELATONIN 3MG CAP/TAB 6MG PO QHS PRN ACTIVE Indication: FOR SLEEP 17) METHENAMINE HIPPURATE TAB 1GM PO BID DURATION: Continuation ACTIVE of chronic home therapy Indication: TO PREVENT URINARY TRACT INFECTION 18) PRESERVISION AREDS 2 (NON-SMOKER) CAP/ 1 SOFTGEL PO BID PC ACTIVE Indication: FOR EYE HEALTH 19) TAMSULOSIN (FLOMAX) CAP,ORAL 0.4MG PO QPM ACTIVE Indication: FOR PROSTATE DATA: WBC: 6.9 K/cmm (09/03/2024 05:00) H HCT: 0 PLT: 0 MCV: 83.6 fL (09/03/2024 05:00) RDW: 14.8 % (09/03/2024 05:00) INR: ____ PTT: ____ SODIUM: 128 mmol/L L (09/04/2024 05:00) POTASSIUM: 3.9 mmol/L (09/04/2024 05:00) CHLORIDE: 99 mmol/L (09/04/2024 05:00) CO2: 21 mmol/L L (09/04/2024 05:00) BUN: 13 mg/dL (09/04/2024 05:00) CREATININE: Collection DT Specimen Test Name Result Units Ref Range 09/04/2024 05:00 PLASMA!! CREATININE 0.75 mg/dL 0.72 - 1.25 !! Indicates COMMENTS AVAILABLE...Refer to Interim Lab Report. CALCIUM: 8.0 mg/dL L (09/04/2024 05:00) ANION GAP: 8.0 mEq/L (09/04/2024 05:00) AST: 11 U/L (08/29/2024 20:32) ALT: 15 U/L (08/29/2024 20:32) ALK PHOS: 97 U/L (08/29/2024 20:32) BILIRUBIN: ALBUMIN: 2.9 g/dL L (08/29/2024 20:32) PROTEIN: 5.9 g/dL L (08/29/2024 20:32) IMAGING: Radiology Report Data Exam Date: SEP 06, 2024@13:40 Procedure: MRI BRAIN W & W/O -- Impression Text -- Extensive deep white matter change in the distribution suggestion suggest suggestive of demyelinating disease. None of these enhance. There is some vacuolization of of these lesions End Radiology Report Data Date Procedure CPT Status Case # 09/06/2024 MRI C SPINE W & W/O [id number] Verified 293 CONTRAST(FURTHER SEQUENCES) Subtle focus of nonenhancing signal abnormality in the spinal at C2-3 level felt to represent a remote demyelinating plaque compatible with the stated of multiple sclerosis. Multilevel degenerative disc and facet disease as described with central canal and foraminal stenoses greatest neural impingement appearing to be at C4-5. NO PRIOR L-SPINE MRI EXAMS W/IN 5 YRS NO PRIOR T-SPINE MRI EXAMS W/IN 5 YRS SII - Alondra Image Impression Date Procedure CPT Status Case # 08/29/2024 CT HEAD W/O CONT [id number] Verified 61 No acute intracranial pathology. NO PRIOR MRI HEAD EXAMS W/IN 5 YRS Radiology Report Data Exam Date: AUG 29, 2024@20:28 Procedure: CT HEAD W/O CONT -- Impression Text -- No acute intracranial pathology. End Radiology Report Data NO PRIOR CT L-SPINE WITHIN PAST [address] T SPINE WITHIN PAST 5 YEARS NO 'NEUROLOGY EEG CONSULT RESPONSE' NOTES FOUND NO 'NEUROLOGY EMG/NCV CONSULT RESPONSE' NOTES FOUND A/P: Patient is a 79 year old transferred from [facility] to [facility] on September 03, 2023 and currently admitted to medicine service for Chronic weakness and there is suspicion for new onset Heart failure with elevated ProBNP, concern for pneumonia and UTI. Patient has a PMH of GERD, multiple sclerosis, prostate cancer, T2DM, HLD, HTN, COPD, Left eye macular degeneration. He has been having chronic weakness of his lower extremities (left more than right at baseline) and mostly non ambulatory at baseline. Per , patient broke his left leg in December, and has been bed ridden since then. He was mostly in his hospital bed since then, would take 3-5 steps with walker to shift to his lift chair and spend most of the day in it. He was able to go to the restroom (20 steps around 5 times a day) at baseline. denies any memory issues at baseline # History of MS # Concern for MS flare - reports that patient received his diagnosis of MS back in 2016 in [place] at age 70 years and was being followed by Dr.David Davila from [facility] for MS. It is possible but somewhat unusually to be diagnosed in later life with MS. - She reports that patient initial symptoms at the time of diagnosis were repetitive falls, weakness in his legs ( left > right), dragging of left leg and inability to walk long distances. He cannot see at baseline from left eye due to Macular degeneration. - reports that patient has been on Ocrelizumab since atleast 4 years, last received it around February 2024 when they were evaluated by Dr. Davila. He then retired in Mar 2024 and they used to do 6 months follow up with him. Patient has tolerated Ocrelizumab well except for side effect of diarrhea after the infusion, getting Ocrelizumab every 6 months. Next dose due in August 2024 (will be deferred given acute infection). - MRI Head w/ and w/o contrast did not demonstrate any enhancing lesions. - MRI C-spine w/ and w/o contrast demonstrated C2-C3 plaque (chronic), and no new lesions. We arranged outpatient follow up with in [place] clinic per family preference PLAN - Current deconditioning is more likely d/t leg fx and infections than from an MS flare. - Patient currently not a candidate for immunosuppressive therapy due to ongoing infections, and recent high-dose steroid therapy - We recommend treating underlying etiologies per primary team - We will arrange for Ocrevus infusion to be done at [place] since family is agreeable to this. informed that it may take a week or more to get this setup and she is agreeable. Staffed with , who agrees with the above plan. Thank you for the opportunity to participate in the care of this patient. No further recs at this time from Neurology. Please page the director of strategic communications resident with any questions or concerns Gurvinder Theodore MD Neurology PGY-4 [facility] /jeannette THEODORE [employer] Secretary Signed: 09/07/2024 12:28 /jeannette RIVER Attending Physician Cosigned: 09/11/2024 21:07 09/08/2024 ADDENDUM STATUS: COMPLETED I interviewed and examined this today, and was assisted by Dr. Regan, Neurology resident physician. I discussed the physical findings, the clinical assessment, and the plan of care with the resident in regard to this patient. I reviewed and approve the attached Neurology Inpatient Progress Note written today. was resting comfortably in bed. He feels better. Reports that at baseline, was using a walker at home. states for his quality of life, it would be nice for him to be able to walk to the bathroom and outside but they are not expecting that he will walk long distances. MRI head and C spine show changes consistent with known MS, no enhancing plaques to suggest a new flare. Discussed pseudoflares, and how when sick with something else, old MS symptoms can worsen for about 24-48 hours. They felt this made a lot of sense. They are transferring their care [facility] to the [place]. He was due for Ocrevus this week, but discussing delaying infusion by about 1 month given his acute illness. We will discuss this with the non formulary pharmacist, and we will set him up to see our MS clinic. /rosette/ CATALINA RIVER Attending Physician Signed: 09/08/2024 09:19 09/08/2024 ADDENDUM STATUS: COMPLETED will need to schedule with [facility] MS clinic in Oct once the schedule is open. /JOSELITO Jordan RN [facility] Neurology Rda Signed: 09/08/2024 09:26 Receipt Acknowledged By: 09/08/2024 09:37 /rosette/ ISMAEL JOSEPH ADVANCED PUFF IRON OPERATOR 09/15/2024 ADDENDUM STATUS: UNSIGNED You may not VIEW this UNSIGNED Addendum. 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 no wounds at this time. /rosette/ JOSELITO DUARTE, RN INPATIENT PROCESSING LEAD// Signed: 09/10/2024 07:48 Receipt Acknowledged By: 09/10/2024 08:12 /rosette/ JAMES MCCLURE PHARMD, ELIAS, CDE CLINICAL ONION FARMER 09/10/2024 ADDENDUM STATUS: COMPLETED At this time, will not follow up in Heart Failure PharmD post discharge clinic. Wilsey discharged to rehab, also enrolled in [facility] /rosette/ JAMES MCCLURE PHARMD, JORDANCP, CDE CLINICAL ONION FARMER Signed: 09/10/2024 08:13 [facility]INH SONI [facility] Sep 09, 2024 02:41 PM DISCHARGE SUMMARY: LOCAL TITLE: Discharge Summary STANDARD TITLE: DISCHARGE SUMMARY DICT DATE: SEP 09, 2024@09:09 ENTRY DATE: SEP 09, 2024@09:09:54 DICTATED BY: PINKY NGUYEN ATTENDING: PINKY NGUYEN URGENCY: routine STATUS: COMPLETED Discharge Summary Has ADDENDA Admit: Aug Discharge: Aug Attending: Pinky Nguyen Discharge Diagnosis: - possible acute on chronic diastolic HF (MILD) - Acute hypoxic resp failure - acute viral PNA with Human rhinovirus - Delirium - MS flare ruled out - choric debility/ADFTT - 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 Gastroesophageal reflux disease without esophagitis 2. Constipation 3. Multiple sclerosis 4. Age related macular degeneration 5. Closed fracture of shaft of right fibula 6. Incontinence 7. Type 2 diabetes mellitus 8. Essential hypertension 9. Hyperlipidemia 10. Carcinoma of prostate 11. Pain of right knee joint Hospital Course: [facility]dale [facility] to wrosening SOA and weakness as well as increase confusion. He was noted to have near syncope episode at rehab, received 3 L IVF that day but became SOA the next day with concerns for CHF. Amari was noted to require 2L NC oxygen at that time and received IV diuresis at the facility then again in EMS. He was noted to have bibasilar infiltrates on imaging. Of note he was recently treated for bcaterial PNA and completed a Levaquin course on day of admission. work up was consistent with viral pneumonia with Human Rhinovirus. He received supportive care with complete resolution of respiratory symptoms and has been on room air for several days. Diuresis was not repeated as he appeared euvolemic. Confusion was attributed to delirium as result of acute illness, change of environment from hospital to rehab. Delirium resolved within 24 hours of admission. given significant weakness MS flare was considered and Neurology was consulted. However, MRI brain and C-spine did not show any new lesions, myalgia completely resolved with supportive care alone. Therefore, MS falre was ruled out. Weakness and myalgia were contributed to viral illness. He is returning to rehab with goal to go home upon completion of rehab. Of note, patient has history of chronic mild hyponatremia with sodiu arounf 128-130 at baseline. He was started on salt tablet at prior rehab without any change in sodium. Recommend stopping salt tablets at this time. UPCOMING OUTPATIENT APPOINTMENTS: Future Appointments: 09/30/2024 13:30 [facility]/ATT2/CONSULT/CD INPATIENT APPOINTMENT PLAN FOR FOLLOW UP: - Neurology in 6 months for MS ([facility]) - provider at rehab next week with BMP for CHF evaluation. PCP issues to follow up: arrange once out of rehab MEDICATION ADJUSTMENTS AND REASON: - change tylenol to 975 mg po TID PRN - Stop Levaquin as course was completed - Stop sodium chloride tablets - resume all other home meds (vitamin E, Famotidine, PEG oral powder, metformin, cholecalciferol, nystatin top powder, albuterol/iptratropium nebs can change to PRN, florastor). NEW MEDICATIONS AND REASON: - Declofenac gel over painful joints as needed Pending results: none Consults: neurology Operations/procedures: none Discharge Disposition: [facility] rehab /es/ PINKY NGUYEN HOSPITALIST Signed: 09/09/2024 09:21 09/09/2024 ADDENDUM STATUS: COMPLETED The following are current Psychiatric outpatient medications for Mr. LUIS MANUEL CHUNG at the time of hospital discharge. (This list includes ACTIVE, PENDING, HOLD, and NON-VA medications.) Active medications on discharge to [place] for Rehab -Famotidine 20mg tab po bid -Bisoprolol fumarate 5mg tab po once daily -Vitamin E 400 unit tab po once daily -Acetaminphen 325mg tab: 3 tabs po q8H prn pain -Gabapentin 100mg cap: 2 caps po tid [...] QPM -Nystatin topical powder to christiano-area PRN -Albuterol/Ipratropium nebs: 3ml via nebulizer q6h PRN breathing through -Florastor 2 tab/cap po bid through 09/16/24 -Diclofenac NA 1% top gel: Apply 2 gram strip to affected area PRN pain -Melatonin 3mg tab: 2 tabs po qhs PRN for sleep Non-VA LEUPROLIDE (ELIGARD) 45MG(6 MONTH)LA INJ 45MG (1 ACTIVE DOSE) UNDER THE SKIN EVERY 6 MONTHS (Received last injection in July 2024) /rosette/ GENIA MARIN CLINICAL MED REC PHARMACIST Signed: 09/09/2024 09:34 /rosette/ PINKY NGUYEN HOSPITALIST Cosigned: 09/09/2024 11:32 09/09/2024 ADDENDUM STATUS: COMPLETED correction to above medication list: pleae stop sodium chloride tablets. /rosette/ PINKY NGUYEN HOSPITALIST Signed: 09/09/2024 11:33 PINKY NGUYENSav [facility] Sep 09, 2024 10:29 AM SCANNED NOTE: LOCAL TITLE: SCANNED ADMISSIONS/DISCHARGES STANDARD TITLE: SCANNED NOTE DATE OF NOTE: SEP 09, 2024@10:29 ENTRY DATE: SEP 10, 2024@10:30:06 AUTHOR: ANU VELÁSQUEZ EXP COSIGNER: URGENCY: STATUS: COMPLETED The scanned image may be viewed in [employer]. /rosette/ ANU VELÁSQUEZ fileclerk Signed: 09/10/2024 10:30 ANU VEL[facility]SQUEZ[facility]AT[facility]DR[facility] HOSPITALSav [facility] Sep 09, 2024 09:20 AM NURSING DISCHARGE NOTE: LOCAL TITLE: DISCHARGE INSTRUCTIONS STANDARD TITLE: NURSING DISCHARGE NOTE DATE OF NOTE: SEP 09, 2024@09:20 ENTRY DATE: SEP 09, 2024@09:20:35 AUTHOR: INDER SWIFT EXP COSIGNER: URGENCY: STATUS: COMPLETED Discharge instructions provided to: Patient Contact telephone number: (This number will be used for our clinical staff to call you regarding your follow up.) [phone] THE PERSON RESPONSIBLE FOR DICTATING/ENTERING THE DISCHARGE SUMMARY ON THIS PATIENT IS: Pinky Nguyen FINAL DIAGNOSES: - possible acute on chronic diastolic HF (MILD) - Acute hypoxic resp failure - acute viral PNA with Human rhinovirus - Delirium - MS flare ruled out - choric debility/ADFTT - 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 no wounds at this time. LIFE-SUSTAINING TREATMENT NOTE: Progress Note Date Title Author (and Author's Title) SEP 05, 2024@14:23 LIFE-SUSTAINING TREATM FRANCK TURNER (MEDICAL Provided the /family with copy of most recent LST Note. PSYCHOSOCIAL SCREEN C-SSRS Screening [place] Suicide Severity Rating Scale (C-SSRS) screener 1. [...] required due to responses to other questions. C-SSRS Screen is Negative [employer] education material provided: OTHER: Discharge Instructions for Heart Failure Future Appointments - Sep@13:30 AAMIR ORTHO/ATT2/CONSULT/CD Diet: Diabetic Diabetic Activity: NO RESTRICTIONS Self Care: Independent Pressure Ulcer or Wound Care? No Flu Vaccine: Not Due Cover sheet reminders reviewed, flu shot not due at this time. Pneumonia Vaccine: Not Due Cover sheet reminders reviewed, pneumonia shot not due at this time. Tobacco Cessation Program Patient not interested in Outpatient Tobacco Cessation Program and/or Not Applicable. Healthy Life: Weight: (If you have Heart Failure we recommend you have a scale at home and follow the following instructions). Weigh yourself at the same time EVERY day. (Morning is preferred after emptying your bladder before eating or drinking.) Keep a record of your weight. Reduce your weight to no more than 10% greater than your ideal weight. In general, IF YOU GAIN MORE THAN 2 POUNDS OVERNIGHT OR MORE THAN 3-5 POUNDS IN ONE WEEK, CALL YOUR HEALTHCARE PROVIDER. Call if experiencing falls, Call if there is a change in mental status. Call if symptoms worsen. If you have any questions please contact our Telephone Care Program [phone] locally or Toll Free at After hours [place] Advice Nurse [phone] locally or Toll Free at [facility] Line is [phone], then press 1 To hear your scheduled appointments or to renew your prescriptions by phone call locally or Toll Free at . Patient/caregiver verbalized understanding of , discharge instruction. Copy of discharge , instructions provided to patient/caregiver. Wristband removed: Yes /rosette/ Inder YEE, acrylic fabricator RN Signed: 09/09/2024 09:25 INDER SWIFT-VUD [facility] Sep 09, 2024 09:14 AM ADDENDUM: LOCAL TITLE: Addendum STANDARD TITLE: ADDENDUM DATE OF NOTE: SEP 09, 2024@09:14:25 ENTRY DATE: SEP 09, 2024@09:14:26 AUTHOR: DIANA LACEY COSIGNER: URGENCY: STATUS: COMPLETED PLAN FOR FOLLOW UP: - Neurology in one month - provier at rehab in one week with repeat BMP for CHF reassessment tagging neurology for f/u appt /rosette/ DIANA LACEY Signed: 09/09/2024 09:14 Receipt Acknowledged By: 09/14/2024 10:59 /es/ JOSELITO Bar RN [facility] Neurology Rda --- Original Document --- 09/09/24 DISCHARGE DAY PROGRESS NOTE: THE PERSON RESPONSIBLE FOR DICTATING/ENTERING THE DISCHARGE SUMMARY ON THIS PATIENT IS: Pinky Nguyen FINAL DIAGNOSES: - possible acute on chronic diastolic HF (MILD) - Acute hypoxic resp failure - acute viral PNA with Human rhinovirus - Delirium - MS flare ruled out - choric debility/ADFTT - 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 no wounds at this time. SUBJECTIVE: feels well today. no events overnight. ready to go to rehab. DISCHARGE EXAM: GEN: NAD CV: RRR, no audible murmur PULM: CTA upper resp yañez, mild decrease bibasilar BS, no wheeze or crackles PSYCH: alert and oriented x 4, no confusion VITALS: BP: 168/79 (09/09/2024 04:11) Pulse: 70 (09/09/2024 04:11) Wt: 213.6 lb [96.89 kg] (09/09/2024 04:40) LAB DATA: CBC/PLT, BLOOD - Partial Panel found WBC , BLOOD, 09/03/24@0500 6.9 K/cmm (5.0 - 10.0) RBC, BLOOD, 09/03/24@0500 3.48 LM/cmm (4.6 - 6.2) HGB, BLOOD, 09/03/24@0500 9.5 Lg/dL (14.0 - 18.0) HCT, BLOOD, 09/03/24@0500 29.1 L% (42.0 - 52.0) MCV, BLOOD, 09/03/24@0500 83.6 fL (80.0 - 94.0) MCH, BLOOD, 09/03/24@0500 27.3 pg (27.0 - 31.0) MCHC, BLOOD, 09/03/24@0500 32.6 g/dL (32.0 - 36.0) RDW, BLOOD, 09/03/24@0500 14.8 % (11.0 - 16.0) PLT, BLOOD, 09/03/24@0500 258 K/cmm (150 - 450) MPV, BLOOD, 09/03/24@0500 10.3 fL (9.0 - 13.1) NRBC, BLOOD, 09/03/24@0500 0.0 % (0.0 - 0.0) PANEL 1 Nanci. date GLUCOSE BUN CREAT SODIUM K CHLOR CO2 09/04/24 05:00 105 H 13 0.75 128 L 3.9 99 21 L 09/03/24 05:00 109 H 12 0.82 129 L 4.2 99 21 L 08/29/24 20:32 111 H 15 0.85 129 L 4.5 99 23 MEDICATION ADJUSTMENTS AND REASON: - change tylenol to 975 mg po TID PRN - Stop Levaquin as course was completed - resume all other home meds (vitamin E, Famotidine, PEG oral powder, metformin, cholecalciferol, consider stopping sodium chloride tab given no change in sodium with or without tabs (can also worsen heart failure), nystatin top powder, albuterol/iptratropium nebs can change to PRN, florastor). NEW MEDICATIONS AND REASON: - Declofenac gel over painful joints as needed See Outpatient Medications at Discharge note for complete list of medications. /rosette/ PINKY NGUYEN HOSPITALIST Signed: 09/09/2024 09:08 Receipt Acknowledged By: 09/14/2024 10:54 /JOSELITO Jordan RN [facility] Neurology Rda 09/09/2024 ADDENDUM STATUS: COMPLETED change neuro f/u to 6 -8 months from now /rosette/ PINKY NGUYEN HOSPITALIST Signed: 09/09/2024 09:09 Receipt Acknowledged By: 09/14/2024 10:58 /JOSELITO Jordan RN [facility] Neurology Rda DIANA LACEY-MALKA [facility] Sep 09, 2024 09:09 AM ADDENDUM: LOCAL TITLE: Addendum STANDARD TITLE: ADDENDUM DATE OF NOTE: SEP 09, 2024@09:09:05 ENTRY DATE: SEP 09, 2024@09:09:06 AUTHOR: PINKY NGUYEN EXP COSIGNER: URGENCY: STATUS: COMPLETED change neuro f/u to 6 -8 months from now /rosette/ PINKY NGUYEN HOSPITALIST Signed: 09/09/2024 09:09 Receipt Acknowledged By: 09/14/2024 10:58 /JOSELITO Jordan RN [facility] Neurology Rda --- Original Document --- 09/09/24 DISCHARGE DAY PROGRESS NOTE: THE PERSON RESPONSIBLE FOR DICTATING/ENTERING THE DISCHARGE SUMMARY ON THIS PATIENT IS: Pinky Nguyen FINAL DIAGNOSES: - possible acute on chronic diastolic HF (MILD) - Acute hypoxic resp failure - acute viral PNA with Human rhinovirus - Delirium - MS flare ruled out - choric debility/ADFTT - 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 no wounds at this time. SUBJECTIVE: feels well today. no events overnight. ready to go to rehab. DISCHARGE EXAM: GEN: NAD CV: RRR, no audible murmur PULM: CTA upper resp yañez, mild decrease bibasilar BS, no wheeze or crackles PSYCH: alert and oriented x 4, no confusion VITALS: BP: 168/79 (09/09/2024 04:11) Pulse: 70 (09/09/2024 04:11) Wt: 213.6 lb [96.89 kg] (09/09/2024 04:40) LAB DATA: CBC/PLT, BLOOD - Partial Panel found WBC , BLOOD, 09/03/24@0500 6.9 K/cmm (5.0 - 10.0) RBC, BLOOD, 09/03/24@0500 3.48 LM/cmm (4.6 - 6.2) HGB, BLOOD, 09/03/24@0500 9.5 Lg/dL (14.0 - 18.0) HCT, BLOOD, 09/03/24@0500 29.1 L% (42.0 - 52.0) MCV, BLOOD, 09/03/24@0500 83.6 fL (80.0 - 94.0) MCH, BLOOD, 09/03/24@0500 27.3 pg (27.0 - 31.0) MCHC, BLOOD, 09/03/24@0500 32.6 g/dL (32.0 - 36.0) RDW, BLOOD, 09/03/24@0500 14.8 % (11.0 - 16.0) PLT, BLOOD, 09/03/24@0500 258 K/cmm (150 - 450) MPV, BLOOD, 09/03/24@0500 10.3 fL (9.0 - 13.1) NRBC, BLOOD, 09/03/24@0500 0.0 % (0.0 - 0.0) PANEL 1 Nanci. date GLUCOSE BUN CREAT SODIUM K CHLOR CO2 09/04/24 05:00 105 H 13 0.75 128 L 3.9 99 21 L 09/03/24 05:00 109 H 12 0.82 129 L 4.2 99 21 L 08/29/24 20:32 111 H 15 0.85 129 L 4.5 99 23 MEDICATION ADJUSTMENTS AND REASON: - change tylenol to 975 mg po TID PRN - Stop Levaquin as course was completed - resume all other home meds (vitamin E, Famotidine, PEG oral powder, metformin, cholecalciferol, consider stopping sodium chloride tab given no change in sodium with or without tabs (can also worsen heart failure), nystatin top powder, albuterol/iptratropium nebs can change to PRN, florastor). NEW MEDICATIONS AND REASON: - Declofenac gel over painful joints as needed See Outpatient Medications at Discharge note for complete list of medications. /rosette/ PINKY NGUYEN HOSPITALIST Signed: 09/09/2024 09:08 Receipt Acknowledged By: 09/14/2024 10:54 /es/ NETTIE BarN RN [facility] Neurology Rda 09/09/2024 ADDENDUM STATUS: COMPLETED PLAN FOR FOLLOW UP: - Neurology in one month - provier at rehab in one week with repeat BMP for CHF reassessment tagging neurology for f/u appt /es/ DIANA LACEY Signed: 09/09/2024 09:14 Receipt Acknowledged By: 09/14/2024 10:59 /rosette/ JOSELITO Bar RN [facility] Neurology Rda PINKY NGUYEN-CDD [facility] Sep 09, 2024 09:09 AM NURSING INPATIENT NOTE: LOCAL TITLE: [facility] NURSING FREQUENT DOCUMENTATION STANDARD TITLE: NURSING INPATIENT NOTE DATE OF NOTE: SEP 09, 2024@09:09 ENTRY DATE: SEP 09, 2024@09:09:42 AUTHOR: INDER SWIFT EXP COSIGNER: URGENCY: STATUS: COMPLETED Version 2.4 Charting in accordance with [place] APPROVED [place] STANDARD (ARAES) ACUTE INPATIENT/REHABILITATION NURSING ADMISSION SCREENING, ASSESSMENT, AND STANDARDS OF CARE ====== NATIONAL EARLY WARNING SCORE (NEWS) ====== The following vital measurements were used to complete the NEWS. Measurement DT TEMP PULSE RESP BP POx F(C) (L/MIN)(%) 09/09/2024 08:09 97.7(36.5) 77 18 117/68 91 The NEWS total is 3. 1. Temperature (C/F): Score = 0 36.1 - 38.0 C (96.9 - 100.4 F) 2. Pulse: Score = 0 51-90 3. Respirations: Score = 0 12-20 4. Blood Pressure (Only Systolic BP, mmHg): Score = 0 111-219 5. Pulse Oximetry: Score = 3 91% or lower 6. Supplemental oxygen in use: Score = 0 No 7. AVPU: Score = 0 Alert /rosette/ Inder YEE, acrylic fabricator RN Signed: 09/09/2024 09:10 INDER SWIFT-CDD [facility] Sep 09, 2024 08:06 AM PHYSICIAN DISCHARGE NOTE: LOCAL TITLE: DISCHARGE DAY PROGRESS NOTE STANDARD TITLE: PHYSICIAN DISCHARGE NOTE DATE OF NOTE: SEP 09, 2024@08:06 ENTRY DATE: SEP 09, 2024@08:06:37 AUTHOR: PINKY NGYUEN EXP COSIGNER: URGENCY: STATUS: COMPLETED DISCHARGE DAY PROGRESS NOTE Has ADDENDA THE PERSON RESPONSIBLE FOR DICTATING/ENTERING THE DISCHARGE SUMMARY ON THIS PATIENT IS: Pinky Nguyen FINAL DIAGNOSES: - possible acute on chronic diastolic HF (MILD) - Acute hypoxic resp failure - acute viral PNA with Human rhinovirus - Delirium - MS flare ruled out - choric debility/ADFTT - 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 no wounds at this time. SUBJECTIVE: feels well today. no events overnight. ready to go to rehab. DISCHARGE EXAM: GEN: NAD CV: RRR, no audible murmur PULM: CTA upper resp yañez, mild decrease bibasilar BS, no wheeze or crackles PSYCH: alert and oriented x 4, no confusion VITALS: BP: 168/79 (09/09/2024 04:11) Pulse: 70 (09/09/2024 04:11) Wt: 213.6 lb [96.89 kg] (09/09/2024 04:40) LAB DATA: CBC/PLT, BLOOD - Partial Panel found WBC , BLOOD, 09/03/24@0500 6.9 K/cmm (5.0 - 10.0) RBC, BLOOD, 09/03/24@0500 3.48 LM/cmm (4.6 - 6.2) HGB, BLOOD, 09/03/24@0500 9.5 Lg/dL (14.0 - 18.0) HCT, BLOOD, 09/03/24@0500 29.1 L% (42.0 - 52.0) MCV, BLOOD, 09/03/24@0500 83.6 fL (80.0 - 94.0) MCH, BLOOD, 09/03/24@0500 27.3 pg (27.0 - 31.0) MCHC, BLOOD, 09/03/24@0500 32.6 g/dL (32.0 - 36.0) RDW, BLOOD, 09/03/24@0500 14.8 % (11.0 - 16.0) PLT, BLOOD, 09/03/24@0500 258 K/cmm (150 - 450) MPV, BLOOD, 09/03/24@0500 10.3 fL (9.0 - 13.1) NRBC, BLOOD, 09/03/24@0500 0.0 % (0.0 - 0.0) PANEL 1 Nanci. date GLUCOSE BUN CREAT SODIUM K CHLOR CO2 09/04/24 05:00 105 H 13 0.75 128 L 3.9 99 21 L 09/03/24 05:00 109 H 12 0.82 129 L 4.2 99 21 L 08/29/24 20:32 111 H 15 0.85 129 L 4.5 99 23 MEDICATION ADJUSTMENTS AND REASON: - change tylenol to 975 mg po TID PRN - Stop Levaquin as course was completed - resume all other home meds (vitamin E, Famotidine, PEG oral powder, metformin, cholecalciferol, consider stopping sodium chloride tab given no change in sodium with or without tabs (can also worsen heart failure), nystatin top powder, albuterol/iptratropium nebs can change to PRN, florastor). NEW MEDICATIONS AND REASON: - Declofenac gel over painful joints as needed See Outpatient Medications at Discharge note for complete list of medications. /rosette/ PINKY NGUYEN HOSPITALIST Signed: 09/09/2024 09:08 Receipt Acknowledged By: 09/14/2024 10:54 /rosette/ JOSELITO Bar RN [facility] Neurology Rda 09/09/2024 ADDENDUM STATUS: COMPLETED change neuro f/u to 6 -8 months from now /rosette/ PINKY NGUYEN HOSPITALIST Signed: 09/09/2024 09:09 Receipt Acknowledged By: * AWAITING SIGNATURE * SARA BECERRIL 09/09/2024 ADDENDUM STATUS: COMPLETED PLAN FOR FOLLOW UP: - Neurology in one month - provier at rehab in one week with repeat BMP for CHF reassessment tagging neurology for f/u appt /rosette/ DIANA LACEY Signed: 09/09/2024 09:14 Receipt Acknowledged By: * AWAITING SIGNATURE * SARA BECERRIL KATAYOUN [place]-CDD [facility] Sep 09, 2024 08:02 AM NURSING E & M NOTE: LOCAL TITLE: NURSING 24 HOUR ORDER VERIFICATION NOTE STANDARD TITLE: NURSING E & M NOTE DATE OF NOTE: SEP 09, 2024@08:02 ENTRY DATE: SEP 09, 2024@08:02:49 AUTHOR: INDER SWIFT EXP COSIGNER: URGENCY: STATUS: COMPLETED Electronic and hard copy review for orders was completed. Life Sustaining Treatment Orders Cohort: Reminder Term: [facility]-LIFE SUSTAINING TREATMENT ORDERABLE ITEMS Orderable Item: LST DNR - DO NOT RESUSCITATE 09/05/2024@14:28 Status: active, Start date: 09/05/2024@14:28, Stop date: missing Duration: 4 D Orderable Item: LST NO INVASIVE MECHANICAL VENTILATION 09/05/2024@14:28 Status: active, Start date: 09/05/2024@14:28, Stop date: missing Duration: 4 D LST Note Verified /jeannette YEE, acrylic fabricator RN Signed: 09/09/2024 08:03 INDER SWIFTSav [facility] Sep 09, 2024 06:53 AM NURSING INTAKE & OUTPUT NOTE: LOCAL TITLE: NURSING INTAKE & OUTPUT NTOD STANDARD TITLE: NURSING INTAKE & OUTPUT NOTE DATE OF NOTE: SEP 09, 2024@06:53 ENTRY DATE: SEP 09, 2024@06:53:14 AUTHOR: KRISTIN LOO EXP COSIGNER: URGENCY: STATUS: COMPLETED Shift Totals: START TIME: Aug@18:00 STOP TIME: Aug@06:00 INTAKE PO Fluids: 300 ml OUTPUT Urine: 700 ml Comments: STOP TIME: Aug@06:00 SVS - Weight Measurement DT WEIGHT LB(KG)[BMI] 09/09/2024 04:40 213.6(96.89)[32*] /rosette/ KRISTIN LOO NURSING PROGRAM COORDINATOR Signed: 09/09/2024 06:56 KRISTIN LOO-VUD [facility] Sep 09, 2024 05:05 AM NURSING INPATIENT NOTE: LOCAL TITLE: [facility] NURSING FREQUENT DOCUMENTATION STANDARD TITLE: NURSING INPATIENT NOTE DATE OF NOTE: SEP 09, 2024@05:05 ENTRY DATE: SEP 09, 2024@05:05:48 AUTHOR: KRISTIN LOO EXP COSIGNER: URGENCY: STATUS: COMPLETED Version 2.4 Charting in accordance with [facility] [place] STANDARD (ARAES) ACUTE INPATIENT/REHABILITATION NURSING ADMISSION SCREENING, ASSESSMENT, AND STANDARDS OF CARE ====== NATIONAL EARLY WARNING SCORE (NEWS) ====== The following vital measurements were used to complete the NEWS. Measurement DT TEMP PULSE RESP BP POx F(C) (L/MIN)(%) 09/09/2024 04:11 97.7(36.5) 70 20 168/79 93 The NEWS total is 2. 1. Temperature (C/F): Score = 0 36.1 - 38.0 C (96.9 - 100.4 F) 2. Pulse: Score = 0 51-90 3. Respirations: Score = 0 12-20 4. Blood Pressure (Only Systolic BP, mmHg): Score = 0 111-219 5. Pulse Oximetry: Score = 2 92% - 93% 6. Supplemental oxygen in use: Score = 0 No 7. AVPU: Score = 0 Alert Patient Status: Remains on unit /es/ KRISTIN LOO NURSING PROGRAM COORDINATOR Signed: 09/09/2024 05:06 KRISTIN LOO-MALKA [facility] Sep 09, 2024 04:08 AM NURSING INPATIENT NOTE: LOCAL TITLE: [facility] ACUTE INPATIENT NSG SHIFT ASSESSMENT STANDARD TITLE: NURSING INPATIENT NOTE DATE OF NOTE: SEP 09, 2024@04:08 ENTRY DATE: SEP 09, 2024@04:08:18 AUTHOR: KRISTIN LOO EXP COSIGNER: URGENCY: STATUS: COMPLETED Version 2.2 Charting in accordance with [place] APPROVED [place] STANDARD (ARAES) ACUTE INPATIENT/REHABILITATION NURSING ADMISSION SCREENING, ASSESSMENT, AND STANDARDS OF CARE ====== REASSESSMENT ====== Comment: Assumed patient care at [phone]. Patient resting in bed with no complaints at this time. Bed in low and locked position, belongings within reach. ====== HANDOFF ====== Bedside report and handoff completed Safety check completed ====== PAIN ASSESSMENT ====== Patient's acceptable pain goal: 0 No pain Are you currently experiencing pain? No: ====== NEUROLOGICAL ====== Neurological Orientation: Oriented x4 Level of Consciousness (AVPU): Alert = Appears aware of and responsive to the environment on their own. Follows commands, opens eyes spontaneously, and tracks objects. 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 ====== RESPIRATORY ====== Respirations: Unlabored Pattern: Regular Breath Sounds Auscultated: Anterior and posterior Left Upper Lobe: Clear Right Upper Lobe: Clear Right Middle Lobe: Clear Left Lower Lobe: Clear Right Lower Lobe: Clear ====== GASTROINTESTINAL ====== Passing flatus Elimination: Continent Abdominal Description: Flat Palpation: Soft, Non-tender Bowel Sounds: RUQ: Active LUQ: Active RLQ: Active LLQ: Active ====== GENITOURINARY ====== Elimination: Continent ===== INTEGUMENTARY/SKIN/WOUND - (INCLUDING CHICHI) SEE NOTE: VAAES SKIN INPECTION/ASSESSMENT ===== /rosette/ KRISTIN LOO NURSING PROGRAM COORDINATOR Signed: 09/09/2024 06:21 KRISTIN LOO-MALKA [facility] Sep 08, 2024 10:40 PM NURSING INPATIENT NOTE: LOCAL TITLE: [facility] NURSING FREQUENT DOCUMENTATION STANDARD TITLE: NURSING INPATIENT NOTE DATE OF NOTE: SEP 08, 2024@22:40 ENTRY DATE: SEP 08, 2024@22:41:02 AUTHOR: PATRICIA KIRKPATRICK COSIGNER: URGENCY: STATUS: COMPLETED Version 2.4 Charting in accordance with [facility] [place] STANDARD (ARAES) ACUTE INPATIENT/REHABILITATION NURSING ADMISSION SCREENING, ASSESSMENT, AND STANDARDS OF CARE ====== ACTIVITIES OF DAILY LIVING ====== Hygiene ADLs: Oral Care: Non-ventilator patient: Patient dentures/partial plates cleaned: Independently The was educated that poor oral hygiene increases the risk of hospital acquired pneumonia and dental problems like gingivitis and tooth decay. was educated using their preferred method and verbalized understanding. /rosette/ PATRICIA CHILDERS Signed: 09/08/2024 22:41 PATRICIA KIRKPATRICK-VUD [facility] Sep 08, 2024 10:00 PM NURSING INPATIENT NOTE: LOCAL TITLE: [facility] NURSING FREQUENT DOCUMENTATION STANDARD TITLE: NURSING INPATIENT NOTE DATE OF NOTE: SEP 08, 2024@22:00 ENTRY DATE: SEP 08, 2024@22:00:26 AUTHOR: OLI ARCOS COSIGNER: URGENCY: STATUS: COMPLETED Version 2.4 Charting in accordance with [place] APPROVED [place] STANDARD (ARAES) ACUTE INPATIENT/REHABILITATION NURSING ADMISSION SCREENING, ASSESSMENT, AND STANDARDS OF CARE ====== NATIONAL EARLY WARNING SCORE (NEWS) ====== The following vital measurements were used to complete the NEWS. Measurement DT TEMP PULSE RESP BP POx F(C) (L/MIN)(%) 09/08/2024 21:10 97.4(36.3) 66 18 164/77 96 The NEWS total is 0. 1. Temperature (C/F): Score = 0 36.1 - 38.0 C (96.9 - 100.4 F) 2. Pulse: Score = 0 51-90 3. Respirations: Score = 0 12-20 4. Blood Pressure (Only Systolic BP, mmHg): Score = 0 111-219 5. Pulse Oximetry: Score = 0 96% or greater 6. Supplemental oxygen in use: Score = 0 No 7. AVPU: Score = 0 Alert /es/ Criss Arcos RN NURSING PROGRAM COORDINATOR Signed: 09/08/2024 22:01 OLI ARCOS-CDD [facility] Sep 08, 2024 09:02 PM NURSING INPATIENT NOTE: LOCAL TITLE: [facility] ACUTE INPATIENT NSG SHIFT ASSESSMENT STANDARD TITLE: NURSING INPATIENT NOTE DATE OF NOTE: SEP 08, 2024@21:02 ENTRY DATE: SEP 08, 2024@21:02:27 AUTHOR: OLI ARCOS EXP COSIGNER: URGENCY: STATUS: COMPLETED Version 2.2 Charting in accordance with [facility] [place] STANDARD ([facility]) ACUTE INPATIENT/REHABILITATION NURSING ADMISSION SCREENING, ASSESSMENT, AND STANDARDS OF CARE ====== ASSESSMENT ====== ====== PAIN ASSESSMENT ====== Patient's acceptable pain goal: 0 No pain Are you currently experiencing pain? No: Pain Score: 0 ====== ALMAZAN FALL SCALE & TIPS PROGRAM ====== Almazan Fall Scale: The Almazan Fall scale was performed and score was 70. This is indicative of high risk for falls. History of falling: immediate or within 3 months? Yes Secondary diagnosis: Yes Ambulatory aid: None/bedrest/nurse assist Intravenous therapy/Heparin lock: Yes Gait/Transferring: Weakness Mental Status: Oriented to own ability/knows own limitations Fall Tailoring Interventions for Patient Safety (TIPS) Fall TIPS initiated with patient: Yes Interventions: Communicate recent fall or risk of harm Bed/Chair Alarm on ====== ENVIRONMENTAL SAFETY MANAGEMENT ====== Implemented safety standards of care: -[place]one to unit & environment -Adequate room lighting -Bed in low and locked position -Call light within reach -Personal items within reach -Traffic path in room free of clutter -Non-slip footwear -Upper/half length side rails up for bed mobility -Sensory aids within reach -Encourage patient to utilize sensory support ====== NEUROLOGICAL ====== Neurological Orientation: Oriented x4 Level of Consciousness (AVPU): Alert = Appears aware of and responsive to the environment on their own. Follows commands, opens eyes spontaneously, and tracks objects. 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 Edema: Present Pitting Location: BLE Measurement: 1+ Barely detectable impression when finger is pressed into skin. ====== RESPIRATORY ====== Respirations: Unlabored Pattern: Regular Breath Sounds Auscultated: Anterior only Left Upper Lobe: Clear Right Upper Lobe: Clear Right Middle Lobe: Clear Left Lower Lobe: Clear Right Lower Lobe: Clear ====== GASTROINTESTINAL ====== Last bowel movement: 09/08/2024 Elimination: Incontinent Bowel Sounds: RUQ: Active LUQ: Active RLQ: Active LLQ: Active ====== GENITOURINARY ====== Elimination: Incontinent ===== INTEGUMENTARY/SKIN/WOUND - (INCLUDING CHICHI) SEE NOTE: VAAES SKIN INPECTION/ASSESSMENT ===== ===== INTEGUMENTARY/SKIN/WOUND - (INCLUDING CHICHI) ===== Assessment Type: SKIN REINSPECTION/REASSESSMENT SKIN INSPECTION: Skin Color: Usual for ethnicity Skin Temperature: Warm Skin Moisture: Normal Skin Turgor: Elastic (normal/immediate) Chichi Skin Assessment: The patient's Chichi Scale Score is 18. The patient is at mild risk for development of pressure ulcer/injury. Sensory perception -- ability to respond meaningfully to pressure-related discomfort No impairment. Moisture -- degree to which skin is exposed to moisture Occasionally moist. Activity -- ability to change and control body position Chair fast. Mobility -- ability to change and control body position Slightly limited. Nutrition -- usual food intake patterns Adequate. Friction and shear No apparent problem. INTERVENTIONS: No change in previous interventions as listed below Pressure Ulcer-Education 09/03/2024 Educate Importance Of Changing Position Education Materials On Ulcer Prevention Provide Education On Cause/Prevention Provide Education Regarding Tx Plan Pressure Ulcer-Friction/Shear 09/03/2024 Elevate Head of Bed For Meals Head of Bed Below 30 Degrees When Not Eating Use Bed Trapeze Or Pull Sheet When Head of Bed Elevated Raise Knee Pressure Ulcer-Moisture 09/03/2024 Condom Catheter Instruct Pt/Family To Request Assistance Maintain Clean Dry Skin Protective Barrier Ointment Pressure Ulcer-Nutrition 09/03/2024 Encourage Eating And Assist With Meals Monitor Fluid/Food Intake Offer Liquids Q2H When Turning Offer Ordered Supplements Provide/Encourage Oral Care As Needed Tray Set Up And Assistance Pressure Ulcer-Pressure Reducing 09/03/2024 Frequent Position Changes Heel/Elbow Pads Turn And Reposition Q2H Turn To Side Less Than 30 Degrees Pressure Ulcer-Remobilize 09/03/2024 Encourage Activity As Tolerated Rom Exercises RISK FACTORS THAT INCREASE RISK FOR DEVELOPING PRESSURE INJURIES: The patient/resident has the following: Age over 75 Stage 2: Location(s): Sacrum/coccyx - cleaned and covered with mepilex No Edema Wound drainage none. ====== MOBILITY ====== Mobility Status: Moderate assist: Unable to clear buttocks from sitting surfaces Gait: Unsteady ====== IV LINES ====== Peripheral IV: Line #1: Assessment: Location: Right, Antecubital Gauge: 20 Dressing Condition: Clean, dry, intact Site Condition: No redness, swelling, pain Line Status: Capped Flushed ====== PSYCHOSOCIAL ====== Type of Emotional Support Provided: Treatment discussion, Ventilation of feelings encouraged /jeannette Arcos RN NURSING PROGRAM COORDINATOR Signed: 09/08/2024 21:07 [facility] Sep 08, 2024 06:00 PM NURSING INTAKE & OUTPUT NOTE: LOCAL TITLE: NURSING INTAKE & OUTPUT DTOD STANDARD TITLE: NURSING INTAKE & OUTPUT NOTE DATE OF NOTE: SEP 08, 2024@18:00 ENTRY DATE: SEP 08, 2024@19:21:49 AUTHOR: OLI ARCOS EXP COSIGNER: URGENCY: STATUS: COMPLETED Shift Totals: START TIME: Aug@06:00 STOP TIME: Aug@18:00 INTAKE PO Fluids: 410 ml OUTPUT Urine: 300 ml Total INTAKE: 410 ml Total OUTPUT: 300 ml Unmeasured OUTPUT Date of Last Bowel Movement: Aug * If it has been more than 3 days since the patients last bowel movement please contact the provider. /jeannette Arcos RN NURSING PROGRAM COORDINATOR Signed: 09/08/2024 19:22 OLI ARCOSSav [facility] Sep 08, 2024 04:04 PM CONSULT: LOCAL TITLE: BENEFICIARY TRAVEL (BT) CONSULT RESPONSE STANDARD TITLE: CONSULT DATE OF NOTE: SEP 08, 2024@16:04 ENTRY DATE: SEP 08, 2024@16:04:36 AUTHOR: JAMILAH DUVAL EXP COSIGNER: URGENCY: STATUS: COMPLETED BENEFICIARY TRAVEL CONSULT REPLY VERSION 2.1: This consult completion is being based on the Beneficiary Travel (BT) Progress Note documentation on the following date: Aug. Please see this [facility] Progress Note for all request information. This Beneficiary Travel Request has been disapproved. Wilsey is not administratively eligible for Beneficiary Travel (BT) benefits. Disapproval Reason: Other: Comment: PCS Form obtained. Lynda ([employer]) confirmed fruit or nut picker for 09-09-2024@1400. Amelia ([employer]) confirmed receipt of run sheet. Please direct the or authorized caregiver to the Beneficiary Travel Office at [phone]. [phone] (afterhours [phone]) to review the accuracy of the information on file, identify potential corrections, or possible transportation alternatives. Additional Information: PCS Form obtained. Lynda ([employer]) confirmed fruit or nut picker for 09-09-2024@1400. Amelia ([employer]) confirmed receipt of run sheet. /rosette/ JAMILAH DUVAL Rodeo Rider Signed: 09/08/2024 16:06 JAMILAH DUVAL [facility] Sep 08, 2024 04:00 PM NURSING INPATIENT NOTE: LOCAL TITLE: [facility] NURSING FREQUENT DOCUMENTATION STANDARD TITLE: NURSING INPATIENT NOTE DATE OF NOTE: SEP 08, 2024@16:00 ENTRY DATE: SEP 08, 2024@16:50:03 AUTHOR: OLI ARCOS COSIGNER: URGENCY: STATUS: COMPLETED Version 2.4 Charting in accordance with [place] APPROVED [place] STANDARD ([facility]) ACUTE INPATIENT/REHABILITATION NURSING ADMISSION SCREENING, ASSESSMENT, AND STANDARDS OF CARE ====== NATIONAL EARLY WARNING SCORE (NEWS) ====== The following vital measurements were used to complete the NEWS. Measurement DT TEMP PULSE RESP BP POx F(C) (L/MIN)(%) 09/08/2024 15:46 97.7(36.5) 76 16 148/70 96 The NEWS total is 0. 1. Temperature (C/F): Score = 0 36.1 - 38.0 C (96.9 - 100.4 F) 2. Pulse: Score = 0 51-90 3. Respirations: Score = 0 12-20 4. Blood Pressure (Only Systolic BP, mmHg): Score = 0 111-219 5. Pulse Oximetry: Score = 0 96% or greater 6. Supplemental oxygen in use: Score = 0 No 7. AVPU: Score = 0 Alert /es/ Criss Arcos RN NURSING PROGRAM COORDINATOR Signed: 09/08/2024 16:50 OLI ARCOS [facility] Sep 08, 2024 03:13 PM ADMINISTRATIVE NOTE: LOCAL TITLE: BENEFICIARY TRAVEL (BT) STANDARD TITLE: ADMINISTRATIVE NOTE DATE OF NOTE: SEP 08, 2024@15:13 ENTRY DATE: SEP 08, 2024@15:13:52 AUTHOR: PINKY NGUYEN EXP COSIGNER: URGENCY: STATUS: COMPLETED BENEFICIARY TRAVEL SPECIAL MODE TRANSPORTATION: I have informed the that, requests with insufficient evidence of functional need, containing information that appears inconsistent with clinical evidence or appears intentionally exaggerated to obtain eligibility will be referred for further review or returned for additional information or clarification. Point of Contact's E-mail: [email or web address] Phone/Pager/Extension: [phone], ext [phone] MEDICAL JUSTIFICATION Wilsey is not able to transfer into a private vehicle or medically appropriate common carrier, or requires additional assistance as outlined below. The clinical condition requiring the use of [place] Special Mode transportation to be safely transported are as follows: Severe deconditioning or functional limitation precluding private transportation with assistance This request is not for an inter-facility transfer BASIC LIFE SUPPORT (Stretcher; Disability Manager On-Board): Stretcher: Patient is bed-bound and unable to safely travel by POV or common carrier, or is unable to maintain static sitting position for the duration of the trip. Describe functional limitations in detail clarifying why patient requires stretcher transport. severe deconditioning DNR/DNI Patient weight: 214.7 lb [97.39 kg] (09/08/2024 06:45) Comments: Date travel is to commence: Aug radio interference supervisor time (if needed): 14:00 Estimated time frame Wilsey will require transportation: One Time Additional Information: [facility] [id number] [place] [address] Frequency: One Way /rosette/ PINKY NGUYEN HOSPITALIST Signed: 09/08/2024 15:16 PINKY NGUYENSav [facility] Sep 08, 2024 02:09 PM INTERNAL MEDICINE NOTE: LOCAL TITLE: MEDICINE SOAP NOTE STANDARD TITLE: INTERNAL MEDICINE NOTE DATE OF NOTE: SEP 08, 2024@14:09 ENTRY DATE: SEP 08, 2024@14:09:58 AUTHOR: FRANCK TURNER EXP COSIGNER: BEHBAHANI,KATAYOUN URGENCY: STATUS: COMPLETED Overnight: NAEO SUBJECTIVE: Alert and interactive this morning. Reports he is interested in getting up and sitting at bedside. No complaints, denies pain. ROS: Reviewed and negative unless noted otherwise above. OBJECTIVE: VITALS: Tc: 97.4 F [36.3 C] (09/08/2024 11:42) HR: 67 (09/08/2024 11:42) RR: 17 (09/08/2024 08:06) BP: 125/69 (09/08/2024 11:42) SpO2: SEP 08, 2024@11:42 -- PULSE OXIMETRY: 92 PHYSICAL EXAM: GENERAL : lying in bed, in NAD. HEENT: anicteric sclera, moist mucus membranes. CVS : RRR w/ normal S1 and S2. No murmurs/rubs/ gallops; no peripheral edema. PULM : Normal work of breathing. Lungs CTAB w/o rhonchi/rales/wheezes. GI : soft, nontender, nondistended. DERM : no noted rash, bruising, bleeding, wounds. MSK : No joint swelling or deformity. NEURO : CN II-XII grossly intact, AAO x3. No focal deficits. Moves all extremities spontaneously. PSYCH : mood & affect appropriate. MEDS: Active Inpatient Medications (including Supplies): Active Inpatient Medications Status = 1) ACETAMINOPHEN TAB 975MG PO TID ACTIVE Indication: FOR PAIN/FEVER 2) ASPIRIN TAB,EC 81MG PO DAILY ACTIVE Indication: FOR HEART 3) ATORVASTATIN TAB 20MG PO QHS ACTIVE Indication: FOR CHOLESTEROL 4) BISOPROLOL TAB 5MG PO DAILY ACTIVE Indication: FOR BLOOD PRESSURE/HEART 5) DEXTROSE 15GM/32ML PKT GEL,ORAL 1 PACKET (15GM) PO Q15MIN ACTIVE PRN Give one tube (15gm) for BG 51-70mg/dl. Perform fingerstick 15 minutes after treatment; notify treating provider. Indication: FOR LOW BLOOD SUGAR 6) DEXTROSE 15GM/32ML PKT GEL,ORAL 2 PACKETS (30GM) PO Q15MIN ACTIVE PRN Give two tubes (30g) for BG 50 mg/dL and below. Perform fingerstick 15 minutes after treatment; notify treating provider. Indication: FOR LOW BLOOD SUGAR 7) DEXTROSE 50% INJ,SOLN 25ML (1/2 AMP/SYRINGE) IV Q15MIN PRN ACTIVE Give 50% dextrose 25 mL IV (over 3 min) STAT for BG of 51 - 70 mg/dL or NPO. Perform fingerstick 15 minutes after treatment; notify treating provider. Indication: FOR LOW BLOOD SUGAR 8) DEXTROSE 50% INJ,SOLN 50ML (1 AMP/SYRINGE) IV Q15MIN PRN ACTIVE Give 50% dextrose 50 mL IV (over 3 min) STAT for BG of 50 mg/dL and below or unresponsive or NPO. Perform fingerstick 15 minutes after treatment; notify treating provider. Indication: FOR LOW BLOOD SUGAR 9) DICLOFENAC NA 1% GEL,TOP 2 GRAM STRIP TOP Q6H PRN ACTIVE Indication: FOR PAIN 10) ENOXAPARIN (LMW HEPARIN) INJ 40MG/0.4ML SQ Q24H Instructions ACTIVE too long. See order details for full text. Indication: TO THIN BLOOD 11) FAMOTIDINE (famOTidine) TAB 20MG PO BID PRN ACTIVE Indication: FOR STOMACH 12) GABAPENTIN CAP,ORAL 200MG PO TID ACTIVE Indication: FOR NERVE PAIN 13) GLUCAGON INJ 1MG/1ML SC Q15MIN PRN Instructions too long. ACTIVE See order details for full text. Indication: FOR LOW BLOOD SUGAR 14) INSULIN ASPART (NOVOLOG) INJ CORRECTION DOSE:SEE COMMENTS SQ ACTIVE AT MEAL END Give after pt fed WITH scheduled meal/prandial insulin(if ordered) If premeal FSBS 131-180=1 unit; 181-230=2 unit; 231-280=3 unit; 281-330=4 unit; >330=5 unit. DO NOT HOLD for NPO. Indication: FOR BLOOD SUGAR 15) LISINOPRIL TAB 5MG PO DAILY ACTIVE Indication: FOR HIGH BLOOD PRESSURE 16) MELATONIN 3MG CAP/TAB 6MG PO QHS PRN ACTIVE Indication: FOR SLEEP 17) METHENAMINE HIPPURATE TAB 1GM PO BID DURATION: Continuation ACTIVE of chronic home therapy Indication: TO PREVENT URINARY TRACT INFECTION 18) PRESERVISION AREDS 2 (NON-SMOKER) CAP/ 1 SOFTGEL PO BID PC ACTIVE Indication: FOR EYE HEALTH 19) TAMSULOSIN (FLOMAX) CAP,ORAL 0.4MG PO QPM ACTIVE Indication: FOR PROSTATE DATA: WBC: 6.9 K/cmm (09/03/2024 05:00) H HCT: 0 PLT: 0 MCV: 83.6 fL (09/03/2024 05:00) RDW: 14.8 % (09/03/2024 05:00) INR: ____ PTT: ____ SODIUM: 128 mmol/L L (09/04/2024 05:00) POTASSIUM: 3.9 mmol/L (09/04/2024 05:00) CHLORIDE: 99 mmol/L (09/04/2024 05:00) CO2: 21 mmol/L L (09/04/2024 05:00) BUN: 13 mg/dL (09/04/2024 05:00) CREATININE: Collection DT Specimen Test Name Result Units Ref Range 09/04/2024 05:00 PLASMA!! CREATININE 0.75 mg/dL 0.72 - 1.25 !! Indicates COMMENTS AVAILABLE...Refer to Interim Lab Report. CALCIUM: 8.0 mg/dL L (09/04/2024 05:00) ANION GAP: 8.0 mEq/L (09/04/2024 05:00) AST: 11 U/L (08/29/2024 20:32) ALT: 15 U/L (08/29/2024 20:32) ALK PHOS: 97 U/L (08/29/2024 20:32) BILIRUBIN: ALBUMIN: 2.9 g/dL L (08/29/2024 20:32) PROTEIN: 5.9 g/dL L (08/29/2024 20:32) HgA1C: Collection DT Specimen Test Name Result Units Ref Range 09/03/2024 05:00 BLOOD HGB 9.5 L g/dL 14.0 - 18.0 IMAGING: A/P: 79M with PMH COPD presents for chronic weakness iso viral PNA and debility. #Viral PNA d/t human rhinovirus, improving -Resp PCR + PLAN: -Supportive care -Eleanor Tylenol for myalgias #Weakness, multifactorial -TTE with EF 60-60%, HFpEF score 50-75% likely, cannot accurately calculate given no PA pressure estimate - UA not indicative of acute infection -CXR (09/03): no fluid overload, bibasilar r>l opacities -BNP >1600 -Note: additional history from spouse indicates at baseline could ambulate 20 steps 4-5 x/day to bathroom with a walker, was mostly sedentary in recliner. 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 -Etiology is most likely debility, with contribution of suspected new heart failure with preserved EF after 3L of fluids, less likely infectious causes given normal WBC and afebrile, less likely acute MS flare given baseline neuro -Speech eval for suspected chronic aspiration results with no overt aspiration, recommends routine aspiration prevention techniques and no diet modification exam PLAN: -Dispo to [facility] 09/09 -No issues with transient hypotension when up and OOB today #Multiple sclerosis, not in flare -Imaging: CT head 08/29/24: Periventricular decreased attenuation likely sequelae of remote ischemic small-vessel disease. -Receives outpatient Ocrelizumab infusions for MS - MRI head and c-spine w/wo reveal old lesions c/w MS but no apparent active disease, no prior imaging available for direct comparison PLAN: -Neurology consult, appreciate recs -Continue infusions as outpt #Type II diabetes mellitus c/b neuropathy -On metformin at home -A1c 5.6 09/03 PLAN: -Hold metformin -Gabapentin tab 200mg TID for neuropathy -CF SSI and Accu-Chek's CHRONIC MEDICAL CONDITIONS: GERD: home famotidine 20mg tab twice a day as needed Prostate cancer: receives leuprolide (eligard) 45mg(6 month)LA inj as outpatient, on home silodosin 8mg oral cap daily will convert to tamsulosin 0.8mg daily, methenamine Hippurate 1gm tab twice a day for UTI px CAD: aspirin 81mg chew tab daily HLD: atorvastatin calcium tab 20mg at bedtime HTN: bisoprolol fumarate 5mg tab daily, lisinopril 5mg daily FEN/DVT Ppx: F- PO E- Monitor and replete N- Carb 2 DVT Ppx: Prophylactic lovenox Code Status: DNR/DNI Dispo: JOIE Franck Turner MD PGY1 Internal Medicine Pager: [phone] /es/ FRANCK TURNER PGY1 Signed: 09/08/2024 15:21 /es/ PINKY NGUYEN HOSPITALIST Cosigned: 09/09/2024 08:06 FRANCK TURNER-Sav [facility] Sep 08, 2024 01:00 PM NURSING NOTE: LOCAL TITLE: NURSING NOTE STANDARD TITLE: NURSING NOTE DATE OF NOTE: SEP 08, 2024@13:00 ENTRY DATE: SEP 08, 2024@13:14:07 AUTHOR: OLI ARCOS COSIGNER: URGENCY: STATUS: COMPLETED Yes - /Caregiver verbalized understanding of topics discussed and education provided Received report from previous RN. Assumed pt care at this time. pt sitting in chair. call light within reach. at bedside. no needs voiced at this time. will continue to monitor. /rosette/ Criss Arcos, LEAD WORKER OF HOUSEKEEPING AND LAUNDRY RN Signed: 09/08/2024 14:05 ISRRAELOLI ELICIA-CDD [facility] Sep 08, 2024 11:23 AM INTERNAL MEDICINE ATTENDING NOTE: LOCAL TITLE: MEDICINE ATTENDING PHYSICIAN NOTE STANDARD TITLE: INTERNAL MEDICINE ATTENDING NOTE DATE OF NOTE: SEP 08, 2024@11:23 ENTRY DATE: SEP 08, 2024@11:23:06 AUTHOR: PINKY NGUYEN EXP COSIGNER: URGENCY: STATUS: COMPLETED I have seen and examined pt and discussed plan of care with resident and participated in talbot decision making and agree with plan. TEMP: 97.8 F [36.6 C] (09/08/2024 08:06) PULSE: 75 (09/08/2024 08:06) BP: 147/68 (09/08/2024 08:06) SAT: SEP 08, 2024@08:06 -- PULSE OXIMETRY: 91 SEP 08, 2024@08:06 -- PULSE OXIMETRY: 91 via ROOM AIR) WT: 214.7 lb [97.39 kg] (09/08/2024 06:45) ASSESSMENT/PLAN: - choric debility/ADFTT- awaiting JOIE placement - possible autonomic dysfunction vs orthostasis due to volume depletion- given po intake may have been lower than baseline here will plan to given small IVF bolus and reassess BP. if persisting likely has autonomic dysfunction as result of MS and poor mobility. encourage pt to be out of bed in chair more often than he is in bed to allow posture adjusting to upright, increase rest time between position changes. RESOLVED MEDICAL ISSUES: - acute on chronic diastolic HF (MILD) - Acute hypoxic resp failure - acute viral PNA with Human rhinovirus - Delirium - MS flare ruled out CHRONIC MEDICAL PROBLEMS: - Multiple Sclerosis- transitioning care to [place] neurology. will resume Ocrevus infusion once completes rehab. - h/o Prostate cancer- previously on ELigard with non-va provider at [facility] and last injection was in July. next injection is in 6 months. this can be done after JOIE has been completed. - GERD- Famotidine, - HTN- cont home lisinopril and Bisoprolol - HLD- lipitor 20 mg at night - COPD- cont DUONEBS per rehab - H/o UTIs- acute UTI is ruled out. cont home Methanamine Hipurate - constipation- cont home Miralax - DM2- A1C 5.6%, holding home metformin for now. agree with SSI - vitamin E and D deficiency- canc cont replacement - BPH- cont home Flomax - recent bacterial PNA- completed abx w levaquin 09/02. DVT PPX- Lovenox FULL CODE DISPOSITION:awaiting JOIE placement. /rosette/ PINKY NGUYEN HOSPITALIST Signed: 09/08/2024 11:45 PINKY NGUYEN-CDD [facility] Sep 08, 2024 09:43 AM NURSING INPATIENT NOTE: LOCAL TITLE: [facility] NURSING FREQUENT DOCUMENTATION STANDARD TITLE: NURSING INPATIENT NOTE DATE OF NOTE: SEP 08, 2024@09:43 ENTRY DATE: SEP 08, 2024@09:43:57 AUTHOR: SHAWNEE NOVOA EXP COSIGNER: URGENCY: STATUS: COMPLETED Version 2.4 Charting in accordance with [place] APPROVED [place] STANDARD (ARAES) ACUTE INPATIENT/REHABILITATION NURSING ADMISSION SCREENING, ASSESSMENT, AND STANDARDS OF CARE ====== ACTIVITIES OF DAILY LIVING ====== Hygiene ADLs: Eating: Minimal assist Oral Care: Non-ventilator patient: Patient dentures/partial plates cleaned: With assistance clean patient denture with denture tablet and water help patient to clean his gum with mouth wash and swab Swabbing performed-Patient edentulous (lacking teeth) The Wilsey was educated that poor oral hygiene increases the risk of hospital acquired pneumonia and dental problems like gingivitis and tooth decay. Wilsey was educated using their preferred method and verbalized understanding. /rosette/ SHAWNEE NOVOA Stage Setting Painter Apprentice Signed: 09/08/2024 09:45 SHAWNEE NOVOA [place]-CDD [facility] Sep 08, 2024 09:30 AM NURSING INPATIENT NOTE: LOCAL TITLE: [facility] ACUTE INPATIENT NSG SHIFT ASSESSMENT STANDARD TITLE: NURSING INPATIENT NOTE DATE OF NOTE: SEP 08, 2024@09:30 ENTRY DATE: SEP 08, 2024@10:39:17 AUTHOR: AMANDA SANCHEZIGNER: URGENCY: STATUS: COMPLETED Version 2.2 Charting in accordance with [place] APPROVED [place] STANDARD (ARAES) ACUTE INPATIENT/REHABILITATION NURSING ADMISSION SCREENING, ASSESSMENT, AND STANDARDS OF CARE ====== ASSESSMENT ====== ====== HANDOFF ====== Bedside report and handoff completed Safety check completed ====== PAIN ASSESSMENT ====== Patient's acceptable pain goal: 0 No pain Are you currently experiencing pain? No: Pain Score: 0 ====== ALMAZAN FALL SCALE & TIPS PROGRAM ====== Almazan Fall Scale: The Almazan Fall scale was performed and score was 60. This is indicative of high risk for falls. History of falling: immediate or within 3 months? No Secondary diagnosis: Yes Ambulatory aid: Crutches/cane(s)/walker Intravenous therapy/Heparin lock: Yes Gait/Transferring: Weakness Mental Status: Oriented to own ability/knows own limitations Fall Tailoring Interventions for Patient Safety (TIPS) Fall TIPS initiated with patient: Yes Interventions: Communicate recent fall or risk of harm Walking Aids: Walker Bed/Chair Alarm on Assistance out of bed: Call for assistance before getting out of bed Safe patient handling device necessary Fall TIPS reviewed with patient: Yes Interventions: Communicate recent fall or risk of harm Walking Aids: Walker Bed/Chair Alarm on Assistance out of bed: Call for assistance before getting out of bed Safe patient handling device necessary ====== ENVIRONMENTAL SAFETY MANAGEMENT ====== Implemented safety standards of care: -[place] to unit & environment -Adequate room lighting -Bed in low and locked position -Call light within reach -Personal items within reach -Traffic path in room free of clutter -Non-slip footwear -Upper/half length side rails up for bed mobility -Sensory aids within reach -Encourage patient to utilize sensory support Additional safety measures: Alarms: Bed Chair Close to nurses station Increased frequency of rounding Mobility support items readily available ====== NEUROLOGICAL ====== Neurological Orientation: Oriented x4 Level of Consciousness (AVPU): Alert = Appears aware of and responsive to the environment on their own. Follows commands, opens eyes spontaneously, and tracks objects. 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 Operator Chief Bilateral: Moderate Upper Extremity Bilateral: Moves against some resistance Lower Extremity Bilateral: Moves against gravity Sensation: Upper Extremity Sensation Bilateral: Intact Lower Extremity Sensation Bilateral: Intact Temperature: Upper Extremity Temperature Bilateral: Warm Lower Extremity Temperature Bilateral: Warm ====== CARDIOVASCULAR ====== Heart Sounds: Normal (S1S2) Heart Rate/Rhythm (without logging tractor operator swamp): Regular Capillary Refill: R Hand: Less than or equal to 3 seconds L Hand: Less than or equal to 3 seconds R Foot: Greater than 3 seconds L Foot: Greater than 3 seconds Edema: Present Pitting Location: Measurement: 1+ Barely detectable impression when finger is pressed into skin. ====== RESPIRATORY ====== Respirations: Unlabored Pattern: Regular Breath Sounds Auscultated: Anterior only Right Upper Lobe: Diminished Left Upper Lobe: Diminished Right Middle Lobe: Diminished Right Lower Lobe: Diminished Left Lower Lobe: Diminished ====== GASTROINTESTINAL ====== Last bowel movement: 09/06/2024 Bowel movement reported by patient-unwitnessed Elimination: Incontinent Abdominal Description: Rounded Palpation: Soft, Non-tender Bowel Sounds: RUQ: Active LUQ: Active RLQ: Active LLQ: Active ====== GENITOURINARY ====== Elimination: Incontinent Urinary catheter Urinary Catheter: Type: External Male Device: Other device: PUREWICK ===== INTEGUMENTARY/SKIN/WOUND - (INCLUDING CHICHI) SEE NOTE: VAAES SKIN INPECTION/ASSESSMENT ===== ===== INTEGUMENTARY/SKIN/WOUND - (INCLUDING CHICHI) ===== Assessment Type: INITIAL SKIN INSPECTION/ASSESSMENT SKIN INSPECTION: Skin Color: Usual for ethnicity Skin Temperature: Warm Skin Moisture: Normal Skin Turgor: Elastic (normal/immediate) Chichi Skin Assessment: The patient's Chichi Scale Score is 13. The patient is at moderate risk for development of pressure ulcers/injuries. Sensory perception -- ability to respond meaningfully to pressure- related discomfort Very limited. Moisture -- degree to which skin is exposed to moisture Occasionally moist. Activity -- ability to change and control body position Chair fast. Mobility -- ability to change and control body position Very limited. Nutrition -- usual food intake patterns Probably inadequate. Friction and shear Potential problem. INTERVENTIONS: No change in previous interventions as listed below Pressure Ulcer-Education 09/03/2024 Educate Importance Of Changing Position Education Materials On Ulcer Prevention Provide Education On Cause/Prevention Provide Education Regarding Tx Plan Pressure Ulcer-Friction/Shear 09/03/2024 Elevate Head of Bed For Meals Head of Bed Below 30 Degrees When Not Eating Use Bed Trapeze Or Pull Sheet When Head of Bed Elevated Raise Knee Pressure Ulcer-Moisture 09/03/2024 Condom Catheter Instruct Pt/Family To Request Assistance Maintain Clean Dry Skin Protective Barrier Ointment Pressure Ulcer-Nutrition 09/03/2024 Encourage Eating And Assist With Meals Monitor Fluid/Food Intake Offer Liquids Q2H When Turning Offer Ordered Supplements Provide/Encourage Oral Care As Needed Tray Set Up And Assistance Pressure Ulcer-Pressure Reducing 09/03/2024 Frequent Position Changes Heel/Elbow Pads Turn And Reposition Q2H Turn To Side Less Than 30 Degrees Pressure Ulcer-Remobilize 09/03/2024 Encourage Activity As Tolerated Rom Exercises RISK FACTORS THAT INCREASE RISK FOR DEVELOPING PRESSURE INJURIES: The patient/resident has the following: Age over 75 History of previous or current pressure ulcer/injury Device(s): (nasogastric tubes, oxygen tubing, urinary catheters, cell phone etc.) SKIN ALTERATIONS: Pressure Ulcer/Injury Documentation from the past year: Pressure Ulcer Stage 09/07/2024 Stage II Sacrum/coccyx 09/07/2024 Stage II Sacrum/coccyx SKIN ALTERATIONS: Wound Documentation from the past year: No data available for: Skin Integrity - Wound Skin Integrity - Wound Second Skin Integrity - Wound Third Skin Integrity - Wound Fourth Skin Integrity - Wound Fifth Skin Integrity - Wound Additional Pressure Ulcer/Injury: Stage 2: Location(s): Sacrum/coccyx No Edema Wound drainage none. ====== MOBILITY ====== Mobility Status: Total assist: Unable to sit up independently at the side of bed Gait: Unsteady Gait: Wide base ====== IV LINES ====== Peripheral IV: Line #1: Assessment: Location: Right, Antecubital Gauge: 20 Dressing Condition: Clean, dry, intact Site Condition: No redness, swelling, pain Line Status: Capped Flushed ====== PSYCHOSOCIAL ====== Type of Emotional Support Provided: 1:1 discussion, Family conference, Anticipated outcomes, Ventilation of feelings encouraged /rosette/ AMANDA SANCHEZ Registered Nurse Signed: 09/08/2024 11:07 AMANDA SANCHEZ-MALKA [facility] Sep 08, 2024 09:25 AM ADDENDUM: LOCAL TITLE: Addendum STANDARD TITLE: ADDENDUM DATE OF NOTE: SEP 08, 2024@09:25:56 ENTRY DATE: SEP 08, 2024@09:25:57 AUTHOR: SARA BECERRIL COSIGNER: URGENCY: STATUS: COMPLETED will need to schedule with [facility] MS clinic in Dec once the schedule is open. /rosette/ JOSELITO Bar RN [facility] Neurology Rda Signed: 09/08/2024 09:26 Receipt Acknowledged By: 09/08/2024 09:37 /rosette/ ISMAEL JOSEPH ADVANCED [employer]FF IRON OPERATOR --- Original Document --- 09/07/24 NEUROLOGY INPATIENT PROGRESS NOTE: Neurology Consult Follow-up Note: Summary:is a 79yo w/PMH of GERD, multiple sclerosis (dx in 2016 in [place]), prostate cancer, T2DM, HLD, HTN, COPD, Left eye macular degeneration. He has been having chronic weakness of his lower extremities (left more than right at baseline) and mostly non ambulatory at baseline. He has been followed outpatient by various neurologists and on Ocrevus infusion. He was admitted to OSH on 09/01 with falls and inability to walk and found to have pneumonia and UTI. There was some concern for MS flare at the outside hospital and he was reportedly given high dose steroids. [facility] and currently admitted to medicine for workup and tx of HF, pneumonia and UTI. Neurology was consulted on 09/03 given concern for MS flare. Rec included obtaining MRI head & C-spine w/ and w/o contrast SUBJECTIVE: Pt's was present at bedside and agrees that pt's mentation has improved significantly. We discussed following up in [place] clinic and answered all her questions. OBJECTIVE: VITALS: Tc: 97.3 F [36.3 C] (09/07/2024 08:30) Tmax: HR: 64 (09/07/2024 11:51) RR: 20 (09/07/2024 08:30) BP: 87/52 (09/07/2024 11:51) SpO2: SEP 07, 2024@11:51 -- PULSE OXIMETRY: 92 PHYSICIAL EXAM: GENERAL: no acute distress, cooperative SKIN: warm and dry, no rashes, wounds, ulcers EYES: conjunctiva clear, EOMI, PERRLA ENT: intact, mucous membranes moist, no apparent injury HEAD/NECK: neck supple, no apparent injury RESPIRATORY/THORAX: symmetric chest rise, nonlabored breathing CARDIOVASCULAR: no JVD, no edema GASTROINTESTINAL: nondistended MUSCULOSKELETAL: no joint swelling, no pain to touch PSYCHOLOGICAL: appropriate mood and behavior NEUROLOGICAL: Mental Status: A&O x 3, interactive, able to follow commands Speech: Intact Articulation CN 2-12: II - VF grossly intact III, IV, - PERRLA, EOMI V - Facial sensation intact VII - Brow raise and smile symmetrical VIII - Auditory acuity intact IX, X - Palate elevation symmetric, uvula midline XI - SCM and Trapezius strength intact XII - Tongue protrudes midline Motor: RUE: 5/5 LUE: 5/5 RLE: 4/5 LLE: 3/5- limited by hip pain Sensory: intact light touch throughout Reflexes: 2+ throughout Coordination: no ataxia with [id number]-eg-ilbf Gait/Station: Deferred MEDS: Active Inpatient Medications (including Supplies): Active Inpatient Medications Status 1) ACETAMINOPHEN TAB 975MG PO TID ACTIVE Indication: FOR PAIN/FEVER 2) ASPIRIN TAB,EC 81MG PO DAILY ACTIVE Indication: FOR HEART 3) ATORVASTATIN TAB 20MG PO QHS ACTIVE Indication: FOR CHOLESTEROL 4) BISOPROLOL TAB 5MG PO DAILY ACTIVE Indication: FOR BLOOD PRESSURE/HEART 5) DEXTROSE 15GM/32ML PKT GEL,ORAL 1 PACKET (15GM) PO Q15MIN ACTIVE PRN Give one tube (15gm) for BG 51-70mg/dl. Perform fingerstick 15 minutes after treatment; notify treating provider. Indication: FOR LOW BLOOD SUGAR 6) DEXTROSE 15GM/32ML PKT GEL,ORAL 2 PACKETS (30GM) PO Q15MIN ACTIVE PRN Give two tubes (30g) for BG 50 mg/dL and below. Perform fingerstick 15 minutes after treatment; notify treating provider. Indication: FOR LOW BLOOD SUGAR 7) DEXTROSE 50% INJ,SOLN 25ML (1/2 AMP/SYRINGE) IV Q15MIN PRN ACTIVE Give 50% dextrose 25 mL IV (over 3 min) STAT for BG of 51 - 70 mg/dL or NPO. Perform fingerstick 15 minutes after treatment; notify treating provider. Indication: FOR LOW BLOOD SUGAR 8) DEXTROSE 50% INJ,SOLN 50ML (1 AMP/SYRINGE) IV Q15MIN PRN ACTIVE Give 50% dextrose 50 mL IV (over 3 min) STAT for BG of 50 mg/dL and below or unresponsive or NPO. Perform fingerstick 15 minutes after treatment; notify treating provider. Indication: FOR LOW BLOOD SUGAR 9) DICLOFENAC NA 1% GEL,TOP 2 GRAM STRIP TOP Q6H PRN ACTIVE Indication: FOR PAIN 10) ENOXAPARIN (LMW HEPARIN) INJ 40MG/0.4ML SQ Q24H Instructions ACTIVE too long. See order details for full text. Indication: TO THIN BLOOD 11) FAMOTIDINE (famOTidine) TAB 20MG PO BID PRN ACTIVE Indication: FOR STOMACH 12) GABAPENTIN CAP,ORAL 200MG PO TID ACTIVE Indication: FOR NERVE PAIN 13) GLUCAGON INJ 1MG/1ML SC Q15MIN PRN Instructions too long. ACTIVE See order details for full text. Indication: FOR LOW BLOOD SUGAR 14) INSULIN ASPART (NOVOLOG) INJ CORRECTION DOSE:SEE COMMENTS SQ ACTIVE AT MEAL END Give after pt fed WITH scheduled meal/prandial insulin(if ordered) If premeal FSBS 131-180=1 unit; 181-230=2 unit; 231-280=3 unit; 281-330=4 unit; >330=5 unit. DO NOT HOLD for NPO. Indication: FOR BLOOD SUGAR 15) LISINOPRIL TAB 5MG PO DAILY ACTIVE Indication: FOR HIGH BLOOD PRESSURE 16) MELATONIN 3MG CAP/TAB 6MG PO QHS PRN ACTIVE Indication: FOR SLEEP 17) METHENAMINE HIPPURATE TAB 1GM PO BID DURATION: Continuation ACTIVE of chronic home therapy Indication: TO PREVENT URINARY TRACT INFECTION 18) PRESERVISION AREDS 2 (NON-SMOKER) CAP/ 1 SOFTGEL PO BID PC ACTIVE Indication: FOR EYE HEALTH 19) TAMSULOSIN (FLOMAX) CAP,ORAL 0.4MG PO QPM ACTIVE Indication: FOR PROSTATE DATA: WBC: 6.9 K/cmm (09/03/2024 05:00) H HCT: 0 PLT: 0 MCV: 83.6 fL (09/03/2024 05:00) RDW: 14.8 % (09/03/2024 05:00) INR: ____ PTT: ____ SODIUM: 128 mmol/L L (09/04/2024 05:00) POTASSIUM: 3.9 mmol/L (09/04/2024 05:00) CHLORIDE: 99 mmol/L (09/04/2024 05:00) CO2: 21 mmol/L L (09/04/2024 05:00) BUN: 13 mg/dL (09/04/2024 05:00) CREATININE: Collection DT Specimen Test Name Result Units Ref Range 09/04/2024 05:00 PLASMA!! CREATININE 0.75 mg/dL 0.72 - 1.25 !! Indicates COMMENTS AVAILABLE...Refer to Interim Lab Report. CALCIUM: 8.0 mg/dL L (09/04/2024 05:00) ANION GAP: 8.0 mEq/L (09/04/2024 05:00) AST: 11 U/L (08/29/2024 20:32) ALT: 15 U/L (08/29/2024 20:32) ALK PHOS: 97 U/L (08/29/2024 20:32) BILIRUBIN: ALBUMIN: 2.9 g/dL L (08/29/2024 20:32) PROTEIN: 5.9 g/dL L (08/29/2024 20:32) IMAGING: Radiology Report Data Exam Date: SEP 06, 2024@13:40 Procedure: MRI BRAIN W & W/O -- Impression Text -- Extensive deep white matter change in the distribution suggestion suggest suggestive of demyelinating disease. None of these enhance. There is some vacuolization of of these lesions End Radiology Report Data Date Procedure CPT Status Case # 09/06/2024 MRI C SPINE W & W/O [id number] Verified 293 CONTRAST(FURTHER SEQUENCES) Subtle focus of nonenhancing signal abnormality in the spinal at C2-3 level felt to represent a remote demyelinating plaque compatible with the stated of multiple sclerosis. Multilevel degenerative disc and facet disease as described with central canal and foraminal stenoses greatest neural impingement appearing to be at C4-5. NO PRIOR L-SPINE MRI EXAMS W/IN 5 YRS NO PRIOR T-SPINE MRI EXAMS W/IN 5 YRS SII - Alondra Image Impression Date Procedure CPT Status Case # 08/29/2024 CT HEAD W/O CONT [id number] Verified 61 No acute intracranial pathology. NO PRIOR MRI HEAD EXAMS W/IN 5 YRS Radiology Report Data Exam Date: AUG 29, 2024@20:28 Procedure: CT HEAD W/O CONT -- Impression Text -- No acute intracranial pathology. End Radiology Report Data NO PRIOR CT L-SPINE WITHIN PAST [address] T SPINE WITHIN PAST 5 YEARS NO 'NEUROLOGY EEG CONSULT RESPONSE' NOTES FOUND NO 'NEUROLOGY EMG/NCV CONSULT RESPONSE' NOTES FOUND A/P: Patient is a 79 year old transferred from [facility] to [facility] on September 03, 2023 and currently admitted to medicine service for Chronic weakness and there is suspicion for new onset Heart failure with elevated ProBNP, concern for pneumonia and UTI. Patient has a PMH of GERD, multiple sclerosis, prostate cancer, T2DM, HLD, HTN, COPD, Left eye macular degeneration. He has been having chronic weakness of his lower extremities (left more than right at baseline) and mostly non ambulatory at baseline. Per , patient broke his left leg in December, and has been bed ridden since then. He was mostly in his hospital bed since then, would take 3-5 steps with walker to shift to his lift chair and spend most of the day in it. He was able to go to the restroom (20 steps around 5 times a day) at baseline. denies any memory issues at baseline # History of MS # Concern for MS flare - reports that patient received his diagnosis of MS back in 2016 in [place] at age 70 years and was being followed by Dr.David Davila from [facility] for MS. It is possible but somewhat unusually to be diagnosed in later life with MS. - She reports that patient initial symptoms at the time of diagnosis were repetitive falls, weakness in his legs ( left > right), dragging of left leg and inability to walk long distances. He cannot see at baseline from left eye due to Macular degeneration. - reports that patient has been on Ocrelizumab since atleast 4 years, last received it around February 2024 when they were evaluated by Dr. Davila. He then retired in Mar 2024 and they used to do 6 months follow up with him. Patient has tolerated Ocrelizumab well except for side effect of diarrhea after the infusion, getting Ocrelizumab every 6 months. Next dose due in August 2024 (will be deferred given acute infection). - MRI Head w/ and w/o contrast did not demonstrate any enhancing lesions. - MRI C-spine w/ and w/o contrast demonstrated C2-C3 plaque (chronic), and no new lesions. We arranged outpatient follow up with in [place] clinic per family preference PLAN - Current deconditioning is more likely d/t leg fx and infections than from an MS flare. - Patient currently not a candidate for immunosuppressive therapy due to ongoing infections, and recent high-dose steroid therapy - We recommend treating underlying etiologies per primary team - We will arrange for Ocrevus infusion to be done at [place] since family is agreeable to this. informed that it may take a week or more to get this setup and she is agreeable. Staffed with , who agrees with the above plan. Thank you for the opportunity to participate in the care of this patient. No further recs at this time from Neurology. Please page the director of strategic communications resident with any questions or concerns Gurvinder Theodore MD Neurology PGY-4 [facility] /rosette/ GURVINDER THEODORE [employer] Secretary Signed: 09/07/2024 12:28 09/08/2024 ADDENDUM STATUS: COMPLETED I interviewed and examined this today, and was assisted by Dr. Regan, Neurology resident physician. I discussed the physical findings, the clinical assessment, and the plan of care with the resident in regard to this patient. I reviewed and approve the attached Neurology Inpatient Progress Note written today. Wilsey was resting comfortably in bed. He feels better. Reports that at baseline, was using a walker at home. states for his quality of life, it would be nice for him to be able to walk to the bathroom and outside but they are not expecting that he will walk long distances. MRI head and C spine show changes consistent with known MS, no enhancing plaques to suggest a new flare. Discussed pseudoflares, and how when sick with something else, old MS symptoms can worsen for about 24-48 hours. They felt this made a lot of sense. They are transferring their care [facility] to the [place]. He was due for Ocrevus this week, but discussing delaying infusion by about 1 month given his acute illness. We will discuss this with the non formulary pharmacist, and we will set him up to see our MS clinic. /rosette/ [place] Attending Physician Signed: 09/08/2024 09:19 SARA BECERRIL-CDD [facility] Sep 08, 2024 08:28 AM NURSING E & M NOTE: LOCAL TITLE: NURSING 24 HOUR ORDER VERIFICATION NOTE STANDARD TITLE: NURSING E & M NOTE DATE OF NOTE: SEP 08, 2024@08:28 ENTRY DATE: SEP 08, 2024@08:28:22 AUTHOR: AMANDA SANCHEZ EXP COSIGNER: URGENCY: STATUS: COMPLETED Electronic and hard copy review for orders was completed. Life Sustaining Treatment Orders Cohort: Reminder Term: [facility]-LIFE SUSTAINING TREATMENT ORDERABLE ITEMS Orderable Item: LST DNR - DO NOT RESUSCITATE 09/05/2024@14:28 Status: active, Start date: 09/05/2024@14:28, Stop date: missing Duration: 3 D Orderable Item: LST NO INVASIVE MECHANICAL VENTILATION 09/05/2024@14:28 Status: active, Start date: 09/05/2024@14:28, Stop date: missing Duration: 3 D LST Note Verified /rosette/ AMANDA SANCHEZ Registered Nurse Signed: 09/08/2024 08:28 AMANDA SANCHEZ-VUD [facility] Sep 08, 2024 08:28 AM NURSING INPATIENT NOTE: LOCAL TITLE: [facility] NURSING FREQUENT DOCUMENTATION STANDARD TITLE: NURSING INPATIENT NOTE DATE OF NOTE: SEP 08, 2024@08:28 ENTRY DATE: SEP 08, 2024@08:29 AUTHOR: AMANDA SANCHEZ EXP COSIGNER: URGENCY: STATUS: COMPLETED Version 2.4 Charting in accordance with [place] APPROVED [place] STANDARD (VAAES) ACUTE INPATIENT/REHABILITATION NURSING ADMISSION SCREENING, ASSESSMENT, AND STANDARDS OF CARE ====== NATIONAL EARLY WARNING SCORE (NEWS) ====== The following vital measurements were used to complete the NEWS. Measurement DT TEMP PULSE RESP BP POx F(C) (L/MIN)(%) 09/08/2024 08:06 97.8(36.6) 75 17 147/68 91 The NEWS total is 3. 1. Temperature (C/F): Score = 0 36.1 - 38.0 C (96.9 - 100.4 F) 2. Pulse: Score = 0 51-90 3. Respirations: Score = 0 12-20 4. Blood Pressure (Only Systolic BP, mmHg): Score = 0 111-219 5. Pulse Oximetry: Score = 3 91% or lower 6. Supplemental oxygen in use: Score = 0 No 7. AVPU: Score = 0 Alert Patient Status: Remains on unit /rosette/ AMANDA SANCHEZ Registered Nurse Signed: 09/08/2024 08:29 AMANDA SANCHEZ [facility] Sep 08, 2024 07:28 AM NURSING INTAKE & OUTPUT NOTE: LOCAL TITLE: NURSING INTAKE & OUTPUT NTOD STANDARD TITLE: NURSING INTAKE & OUTPUT NOTE DATE OF NOTE: SEP 08, 2024@07:28 ENTRY DATE: SEP 08, 2024@07:28:37 AUTHOR: KAREY SELLERS EXP COSIGNER: URGENCY: STATUS: COMPLETED Shift Totals: START TIME: Aug@18:00 STOP TIME: Aug@06:00 INTAKE PO Fluids: 120 ml OUTPUT Urine: 600 ml Total INTAKE: ml Total OUTPUT: ml Unmeasured OUTPUT Comments: 24 hour totals Intake Total: ml Output Total: ml Total Unmeasured Output: Comments: STOP TIME: Aug@06:00 SVS - Weight Measurement DT WEIGHT LB(KG)[BMI] 09/08/2024 06:45 214.7(97.39)[32*] /jeannette SELLERS DNP,ABDULLAHI,LEAD WORKER OF HOUSEKEEPING AND LAUNDRY RN Signed: 09/08/2024 07:29 KAREY SELLERS [facility] Sep 08, 2024 05:31 AM NURSING INPATIENT NOTE: LOCAL TITLE: [facility] NURSING FREQUENT DOCUMENTATION STANDARD TITLE: NURSING INPATIENT NOTE DATE OF NOTE: SEP 08, 2024@05:31 ENTRY DATE: SEP 08, 2024@05:31:55 AUTHOR: KAREY SELLERS EXP COSIGNER: URGENCY: STATUS: COMPLETED Version 2.4 Charting in accordance with [place] APPROVED [place] STANDARD (ARAES) ACUTE INPATIENT/REHABILITATION NURSING ADMISSION SCREENING, ASSESSMENT, AND STANDARDS OF CARE ====== NATIONAL EARLY WARNING SCORE (NEWS) ====== The following vital measurements were used to complete the NEWS. Measurement DT TEMP PULSE RESP BP POx F(C) (L/MIN)(%) 09/08/2024 04:28 96.3(35.7) 74 18 166/76 93 The NEWS total is 3. 1. Temperature (C/F): Score = 1 35.1 - 36 C (95.1 - 96.8 F) 2. Pulse: Score = 0 51-90 3. Respirations: Score = 0 12-20 4. Blood Pressure (Only Systolic BP, mmHg): Score = 0 111-219 5. Pulse Oximetry: Score = 2 92% - 93% 6. Supplemental oxygen in use: Score = 0 No 7. AVPU: Score = 0 Alert Patient Status: Remains on unit /rosette/ KAREY SELLERS DNP,AGPCNP,LEAD WORKER OF HOUSEKEEPING AND LAUNDRY RN Signed: 09/08/2024 05:32 KAREY SELLERS-MALKA [facility] Sep 08, 2024 05:05 AM NURSING INPATIENT NOTE: LOCAL TITLE: [facility] ACUTE INPATIENT NSG SHIFT ASSESSMENT STANDARD TITLE: NURSING INPATIENT NOTE DATE OF NOTE: SEP 08, 2024@05:05 ENTRY DATE: SEP 08, 2024@05:32:47 AUTHOR: KAREY SELLERS Rex EXP COSIGNER: URGENCY: STATUS: COMPLETED Version 2.2 Charting in accordance with [place] APPROVED [place] STANDARD (ARAES) ACUTE INPATIENT/REHABILITATION NURSING ADMISSION SCREENING, ASSESSMENT, AND STANDARDS OF CARE ====== REASSESSMENT ====== ====== PAIN ASSESSMENT ====== Patient's acceptable pain goal: Are you currently experiencing pain? No: Pain Score: 0 ====== NEUROLOGICAL ====== Neurological Orientation: Person Place Situation Level of Consciousness (AVPU): Alert = Appears aware of and responsive to the environment on their own. Follows commands, opens eyes spontaneously, and tracks objects. Affect/behavior: Cooperative Calm ====== CARDIOVASCULAR ====== Heart Sounds: Normal (S1S2) Heart Rate/Rhythm (without logging tractor operator swamp): Regular Capillary Refill: Peripheral Pulses: All 4 extremities, 3+ normal. Edema: Present Pitting Location: BLE Measurement: 2+ Slight indentation. 15 seconds to rebound. ====== RESPIRATORY ====== Respirations: Unlabored Pattern: Regular Breath Sounds Auscultated: Anterior only Left Upper Lobe: Clear Right Upper Lobe: Clear Right Middle Lobe: Clear Left Lower Lobe: Clear Right Lower Lobe: Clear ====== GASTROINTESTINAL ====== Last bowel movement: 09/06/2024 Abdominal Description: Rounded Protuberant (central obesity) Palpation: Soft, Non-tender Bowel Sounds: RUQ: Active LUQ: Active RLQ: Active LLQ: Active ====== GENITOURINARY ====== Elimination: Urinary catheter Urinary Catheter: Type: External Male Device: Other device: PURE WICK /es/ KAREY SELLERS DNP,AGPCNP,LEAD WORKER OF HOUSEKEEPING AND LAUNDRY RN Signed: 09/08/2024 05:33 KAREY SELLERS-CDD [facility] Sep 07, 2024 09:08 PM NURSING INPATIENT NOTE: LOCAL TITLE: [facility] NURSING FREQUENT DOCUMENTATION STANDARD TITLE: NURSING INPATIENT NOTE DATE OF NOTE: SEP 07, 2024@21:08 ENTRY DATE: SEP 07, 2024@21:08:12 AUTHOR: KAREY SELLERS EXP COSIGNER: URGENCY: STATUS: COMPLETED Version 2.4 Charting in accordance with [place] APPROVED [place] STANDARD (ARAES) ACUTE INPATIENT/REHABILITATION NURSING ADMISSION SCREENING, ASSESSMENT, AND STANDARDS OF CARE ====== NATIONAL EARLY WARNING SCORE (NEWS) ====== The following vital measurements were used to complete the NEWS. Measurement DT TEMP PULSE RESP BP POx F(C) (L/MIN)(%) 09/07/2024 20:01 97.8(36.6) 66 16 148/76 95 The NEWS total is 1. 1. Temperature (C/F): Score = 0 36.1 - 38.0 C (96.9 - 100.4 F) 2. Pulse: Score = 0 51-90 3. Respirations: Score = 0 12-20 4. Blood Pressure (Only Systolic BP, mmHg): Score = 0 111-219 5. Pulse Oximetry: Score = 1 94% - 95% 6. Supplemental oxygen in use: Score = 0 No 7. AVPU: Score = 0 Alert Patient Status: Remains on unit /rosette/ KAREY SELLERS DNP,AGPCNP,LEAD WORKER OF HOUSEKEEPING AND LAUNDRY RN Signed: 09/07/2024 21:08 KAREY SELLERS [facility] Sep 07, 2024 09:02 PM NURSING INPATIENT NOTE: LOCAL TITLE: [facility] NURSING FREQUENT DOCUMENTATION STANDARD TITLE: NURSING INPATIENT NOTE DATE OF NOTE: SEP 07, 2024@21:02 ENTRY DATE: SEP 07, 2024@21:02:32 AUTHOR: ELIZABETH BELTRAN EXP COSIGNER: URGENCY: STATUS: COMPLETED Version 2.4 Charting in accordance with [place] APPROVED [place] STANDARD ([facility]) ACUTE INPATIENT/REHABILITATION NURSING ADMISSION SCREENING, ASSESSMENT, AND STANDARDS OF CARE ====== ACTIVITIES OF DAILY LIVING ====== Hygiene ADLs: Oral Care: Non-ventilator patient: Patient dentures/partial plates cleaned: With assistance The Wilsey was educated that poor oral hygiene increases the risk of hospital acquired pneumonia and dental problems like gingivitis and tooth decay. was educated using their preferred method and verbalized understanding. /rosette/ ELIZABETH CHILDERS tech Signed: 09/07/2024 21:03 ELIZABETH BELTRAN [facility] Sep 07, 2024 09:01 PM NURSING INPATIENT NOTE: LOCAL TITLE: [facility] ACUTE INPATIENT NSG SHIFT ASSESSMENT STANDARD TITLE: NURSING INPATIENT NOTE DATE OF NOTE: SEP 07, 2024@21:01 ENTRY DATE: SEP 07, 2024@21:01:25 AUTHOR: KAREY SELLERS COSIGNER: URGENCY: STATUS: COMPLETED Version 2.2 Charting in accordance with [place]PR[place] STANDARD ([facility]) ACUTE INPATIENT/REHABILITATION NURSING ADMISSION SCREENING, ASSESSMENT, AND STANDARDS OF CARE ====== ASSESSMENT ====== ====== HANDOFF ====== Safety check completed ====== PAIN ASSESSMENT ====== Patient's acceptable pain goal: Are you currently experiencing pain? No: Pain Score: 0 ====== ALMAZAN FALL SCALE & TIPS PROGRAM ====== Almazan Fall Scale: The Almazan Fall scale was performed and score was 85. This is indicative of high risk for falls. History of falling: immediate or within 3 months? Yes Secondary diagnosis: Yes Ambulatory aid: Crutches/cane(s)/walker Intravenous therapy/Heparin lock: Yes Gait/Transferring: Weakness Mental Status: Oriented to own ability/knows own limitations Fall Tailoring Interventions for Patient Safety (TIPS) Fall TIPS reviewed with patient: Yes Interventions: IV assistance when walking Bed/Chair Alarm on ====== ENVIRONMENTAL SAFETY MANAGEMENT ====== Implemented safety standards of care: -[place] to unit & environment -Adequate room lighting -Bed in low and locked position -Call light within reach -Personal items within reach -Traffic path in room free of clutter -Non-slip footwear -Upper/half length side rails up for bed mobility -Sensory aids within reach -Encourage patient to utilize sensory support Additional safety measures: Alarms: Bed Close to nurses station Isolation Type: Droplet ====== NEUROLOGICAL ====== Neurological Orientation: Person Place Situation Level of Consciousness (AVPU): Alert = Appears aware of and responsive to the environment on their own. Follows commands, opens eyes spontaneously, and tracks objects. 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 Edema: Present Pitting Location: BLE Measurement: 2+ Slight indentation. 15 seconds to rebound. ====== RESPIRATORY ====== Respirations: Unlabored Pattern: Regular Breath Sounds Auscultated: Anterior only Left Upper Lobe: Clear Right Upper Lobe: Clear Right Middle Lobe: Clear Left Lower Lobe: Clear Right Lower Lobe: Clear ====== GASTROINTESTINAL ====== Last bowel movement: 09/06/2024 Abdominal Description: Rounded Protuberant (central obesity) Palpation: Soft, Non-tender Bowel Sounds: RUQ: Active LUQ: Active RLQ: Active LLQ: Active ====== GENITOURINARY ====== Elimination: Urinary catheter Urinary Catheter: Type: External Male Device: Other device: PURE WICK ===== INTEGUMENTARY/SKIN/WOUND - (INCLUDING CHICHI) SEE NOTE: [facility] SKIN INPECTION/ASSESSMENT ===== ===== INTEGUMENTARY/SKIN/WOUND - (INCLUDING CHICHI) ===== Assessment Type: SKIN REINSPECTION/REASSESSMENT SKIN INSPECTION: Skin Color: Usual for ethnicity Skin Temperature: Warm Skin Moisture: Normal Skin Turgor: Elastic (normal/immediate) Chichi Skin Assessment: The patient's Chichi Scale Score is 17. The patient is at mild risk for development of pressure ulcer/injury. Sensory perception -- ability to respond meaningfully to pressure- related discomfort No impairment. Moisture -- degree to which skin is exposed to moisture Occasionally moist. Activity -- ability to change and control body position Bedfast. Mobility -- ability to change and control body position Slightly limited. Nutrition -- usual food intake patterns Adequate. Friction and shear No apparent problem. INTERVENTIONS: No change in previous interventions as listed below Pressure Ulcer-Education 09/03/2024 Educate Importance Of Changing Position Education Materials On Ulcer Prevention Provide Education On Cause/Prevention Provide Education Regarding Tx Plan Pressure Ulcer-Friction/Shear 09/03/2024 Elevate Head of Bed For Meals Head of Bed Below 30 Degrees When Not Eating Use Bed Trapeze Or Pull Sheet When Head of Bed Elevated Raise Knee Pressure Ulcer-Moisture 09/03/2024 Condom Catheter Instruct Pt/Family To Request Assistance Maintain Clean Dry Skin Protective Barrier Ointment Pressure Ulcer-Nutrition 09/03/2024 Encourage Eating And Assist With Meals Monitor Fluid/Food Intake Offer Liquids Q2H When Turning Offer Ordered Supplements Provide/Encourage Oral Care As Needed Tray Set Up And Assistance Pressure Ulcer-Pressure Reducing 09/03/2024 Frequent Position Changes Heel/Elbow Pads Turn And Reposition Q2H Turn To Side Less Than 30 Degrees Pressure Ulcer-Remobilize 09/03/2024 Encourage Activity As Tolerated Rom Exercises RISK FACTORS THAT INCREASE RISK FOR DEVELOPING PRESSURE INJURIES: The patient/resident has the following: Age over 75 Pressure Ulcer/Injury: Stage 2: Location(s): Sacrum/coccyx No Edema Wound drainage none. ====== IV LINES ====== Peripheral IV: Line #1: Assessment: Location: Right, Antecubital Gauge: 20 Dressing Condition: Clean, dry, intact Site Condition: No redness, swelling, pain Line Status: Capped ====== PSYCHOSOCIAL ====== Type of Emotional Support Provided: Hospitalization discussion, Ventilation of feelings daniel /rosette/ KAREY SELLERS DNP,AG[place]ORENE,LEAD WORKER OF HOUSEKEEPING AND LAUNDRY RN Signed: 09/07/2024 21:06 KAREY SELLERS [facility] Sep 07, 2024 06:09 PM NURSING INPATIENT NOTE: LOCAL TITLE: [facility] NURSING FREQUENT DOCUMENTATION STANDARD TITLE: NURSING INPATIENT NOTE DATE OF NOTE: SEP 07, 2024@18:09 ENTRY DATE: SEP 07, 2024@18:09:17 AUTHOR: AMANDA SANCHEZ EXP COSIGNER: URGENCY: STATUS: COMPLETED Version 2.4 Charting in accordance with [place] APPR[place] STANDARD ([facility]) ACUTE INPATIENT/REHABILITATION NURSING ADMISSION SCREENING, ASSESSMENT, AND STANDARDS OF CARE ====== NATIONAL EARLY WARNING SCORE (NEWS) ====== The following vital measurements were used to complete the NEWS. Measurement DT TEMP PULSE RESP BP POx F(C) (L/MIN)(%) 09/07/2024 16:38 97.0(36.1) 61 20 122/69 94 The NEWS total is 1. 1. Temperature (C/F): Score = 0 36.1 - 38.0 C (96.9 - 100.4 F) 2. Pulse: Score = 0 51-90 3. Respirations: Score = 0 12-20 4. Blood Pressure (Only Systolic BP, mmHg): Score = 0 111-219 5. Pulse Oximetry: Score = 1 94% - 95% 6. Supplemental oxygen in use: Score = 0 No 7. AVPU: Score = 0 Alert Patient Status: Remains on unit // AMANDA SANCHEZ Registered Nurse Signed: 09/07/2024 18:09 AMANDA SANCHEZ-MALKA [facility] Sep 07, 2024 02:17 PM NURSING INPATIENT NOTE: LOCAL TITLE: [facility] NURSING FREQUENT DOCUMENTATION STANDARD TITLE: NURSING INPATIENT NOTE DATE OF NOTE: SEP 07, 2024@14:17 ENTRY DATE: SEP 07, 2024@14:17:44 AUTHOR: GHANSHYAM FARRIS EXP COSIGNER: URGENCY: STATUS: COMPLETED Version 2.4 Charting in accordance with [place]PR[place] STANDARD ([facility]) ACUTE INPATIENT/REHABILITATION NURSING ADMISSION SCREENING, ASSESSMENT, AND STANDARDS OF CARE ====== ACTIVITIES OF DAILY LIVING ====== Hygiene ADLs: Dressing: Upper Body: Dependent Lower Body: Dependent Eating: Minimal assist Oral Care: Non-ventilator patient: Patient dentures/partial plates cleaned: With assistance The was educated that poor oral hygiene increases the risk of hospital acquired pneumonia and dental problems like gingivitis and tooth decay. was educated using their preferred method and verbalized understanding. Pericare: Dependent Personal Care: Dependent Toileting: Dependent ======= ACTIVITY/MOBILIZATION ======= Mobility Status: Total assist: Equipment utilized: Ceiling lift or full body floor-based lift Friction reducing devices (air/slide sheet) Gait: Unable to ambulate [facility] - Highest Level of Mobility achieved this shift: 1 - Lying in bed ====== ENVIRONMENTAL SAFETY MANAGEMENT ====== Implemented safety standards of care: -[place] to unit & environment -Adequate room lighting -Bed in low and locked position -Call light within reach -Personal items within reach -Traffic path in room free of clutter -Non-slip footwear -Upper/half length side rails up for bed mobility -Sensory aids within reach -Encourage patient to utilize sensory support Additional safety measures: Mobility support items readily available ======= ORAL INTAKE (PERCENTAGE OF MEAL EATEN) ======= Breakfast: 76% - 100% Lunch: 76% - 100% ======= Pain ======= DVPRS Scale Location: [facility] Pain Rating Scale (DVPRS): 0 No pain Pain Score: 0 Patient's acceptable pain goal: Pain Alleviating Interventions: Medication, see RAGINI Quinteros /es/ BOSTON Chawla Stage Setting Painter Apprentice Signed: 09/07/2024 14:23 GHANSHYAM FARRIS-MALKA [facility] Sep 07, 2024 12:27 PM INTERNAL MEDICINE NOTE: LOCAL TITLE: MEDICINE SOAP NOTE STANDARD TITLE: INTERNAL MEDICINE NOTE DATE OF NOTE: SEP 07, 2024@12:27 ENTRY DATE: SEP 07, 2024@12:27:32 AUTHOR: FRANCK TURNER COSIGNER: PINKY NGUYEN URGENCY: STATUS: COMPLETED MEDICINE SOAP NOTE Has ADDENDA Overnight: NAEO SUBJECTIVE: Pt initially agreeable to [facility], after conversation with they prefer to eval pivot from bed to chair ability with PT before making a decision for home vs [facility]. Pt evaluated with PT and failed pivot, and agreeable to [facility] placement now. He has no other complaints at this time. ROS: Reviewed and negative unless noted otherwise above. OBJECTIVE: VITALS: Tc: 97.3 F [36.3 C] (09/07/2024 08:30) HR: 62 (09/07/2024 12:08) RR: 20 (09/07/2024 08:30) BP: 118/68 (09/07/2024 12:08) SpO2: SEP 07, 2024@11:51 -- PULSE OXIMETRY: 92 PHYSICAL EXAM: GENERAL : seated in bedside recliner, present HEENT: anicteric sclera, moist mucus membranes. CVS : RRR w/ normal S1 and S2. No murmurs/rubs/ gallops; no peripheral edema. PULM : Normal work of breathing. Lungs CTAB w/o rhonchi/rales/wheezes. GI : soft, nontender, nondistended. DERM : no noted rash, bruising, bleeding, wounds. MSK : No joint swelling or deformity. NEURO : CN II-XII grossly intact, AAO x3. No focal deficits. Moves all extremities spontaneously. PSYCH : mood & affect appropriate. MEDS: Active Inpatient Medications (including Supplies): Active Inpatient Medications Status 1) ACETAMINOPHEN TAB 975MG PO TID ACTIVE Indication: FOR PAIN/FEVER 2) ASPIRIN TAB,EC 81MG PO DAILY ACTIVE Indication: FOR HEART 3) ATORVASTATIN TAB 20MG PO QHS ACTIVE Indication: FOR CHOLESTEROL 4) BISOPROLOL TAB 5MG PO DAILY ACTIVE Indication: FOR BLOOD PRESSURE/HEART 5) DEXTROSE 15GM/32ML PKT GEL,ORAL 1 PACKET (15GM) PO Q15MIN ACTIVE PRN Give one tube (15gm) for BG 51-70mg/dl. Perform fingerstick 15 minutes after treatment; notify treating provider. Indication: FOR LOW BLOOD SUGAR 6) DEXTROSE 15GM/32ML PKT GEL,ORAL 2 PACKETS (30GM) PO Q15MIN ACTIVE PRN Give two tubes (30g) for BG 50 mg/dL and below. Perform fingerstick 15 minutes after treatment; notify treating provider. Indication: FOR LOW BLOOD SUGAR 7) DEXTROSE 50% INJ,SOLN 25ML (1/2 AMP/SYRINGE) IV Q15MIN PRN ACTIVE Give 50% dextrose 25 mL IV (over 3 min) STAT for BG of 51 - 70 mg/dL or NPO. Perform fingerstick 15 minutes after treatment; notify treating provider. Indication: FOR LOW BLOOD SUGAR 8) DEXTROSE 50% INJ,SOLN 50ML (1 AMP/SYRINGE) IV Q15MIN PRN ACTIVE Give 50% dextrose 50 mL IV (over 3 min) STAT for BG of 50 mg/dL and below or unresponsive or NPO. Perform fingerstick 15 minutes after treatment; notify treating provider. Indication: FOR LOW BLOOD SUGAR 9) DICLOFENAC NA 1% GEL,TOP 2 GRAM STRIP TOP Q6H PRN ACTIVE Indication: FOR PAIN 10) ENOXAPARIN (LMW HEPARIN) INJ 40MG/0.4ML SQ Q24H Instructions ACTIVE too long. See order details for full text. Indication: TO THIN BLOOD 11) FAMOTIDINE (famOTidine) TAB 20MG PO BID PRN ACTIVE Indication: FOR STOMACH 12) GABAPENTIN CAP,ORAL 200MG PO TID ACTIVE Indication: FOR NERVE PAIN 13) GLUCAGON INJ 1MG/1ML SC Q15MIN PRN Instructions too long. ACTIVE See order details for full text. Indication: FOR LOW BLOOD SUGAR 14) INSULIN ASPART (NOVOLOG) INJ CORRECTION DOSE:SEE COMMENTS SQ ACTIVE AT MEAL END Give after pt fed WITH scheduled meal/prandial insulin(if ordered) If premeal FSBS 131-180=1 unit; 181-230=2 unit; 231-280=3 unit; 281-330=4 unit; >330=5 unit. DO NOT HOLD for NPO. Indication: FOR BLOOD SUGAR 15) LISINOPRIL TAB 5MG PO DAILY ACTIVE Indication: FOR HIGH BLOOD PRESSURE 16) MELATONIN 3MG CAP/TAB 6MG PO QHS PRN ACTIVE Indication: FOR SLEEP 17) METHENAMINE HIPPURATE TAB 1GM PO BID DURATION: Continuation ACTIVE of chronic home therapy Indication: TO PREVENT URINARY TRACT INFECTION 18) PRESERVISION AREDS 2 (NON-SMOKER) CAP/ 1 SOFTGEL PO BID PC ACTIVE Indication: FOR EYE HEALTH 19) TAMSULOSIN (FLOMAX) CAP,ORAL 0.4MG PO QPM ACTIVE Indication: FOR PROSTATE DATA: WBC: 6.9 K/cmm (09/03/2024 05:00) H HCT: 0 PLT: 0 MCV: 83.6 fL (09/03/2024 05:00) RDW: 14.8 % (09/03/2024 05:00) INR: ____ PTT: ____ SODIUM: 128 mmol/L L (09/04/2024 05:00) POTASSIUM: 3.9 mmol/L (09/04/2024 05:00) CHLORIDE: 99 mmol/L (09/04/2024 05:00) CO2: 21 mmol/L L (09/04/2024 05:00) BUN: 13 mg/dL (09/04/2024 05:00) CREATININE: Collection DT Specimen Test Name Result Units Ref Range 09/04/2024 05:00 PLASMA!! CREATININE 0.75 mg/dL 0.72 - 1.25 !! Indicates COMMENTS AVAILABLE...Refer to Interim Lab Report. CALCIUM: 8.0 mg/dL L (09/04/2024 05:00) ANION GAP: 8.0 mEq/L (09/04/2024 05:00) AST: 11 U/L (08/29/2024 20:32) ALT: 15 U/L (08/29/2024 20:32) ALK PHOS: 97 U/L (08/29/2024 20:32) BILIRUBIN: ALBUMIN: 2.9 g/dL L (08/29/2024 20:32) PROTEIN: 5.9 g/dL L (08/29/2024 20:32) HgA1C: Collection DT Specimen Test Name Result Units Ref Range 09/03/2024 05:00 BLOOD HGB 9.5 L g/dL 14.0 - 18.0 IMAGING: A/P: 79M with PMH COPD presents for chronic weakness iso viral PNA and debility. #Viral PNA d/t human rhinovirus -Resp PCR + PLAN: -Supportive care -No longer requiring supp O2 -Eleanor Tylenol for myalgias #Weakness, multifactorial -TTE with EF 60-60%, HFpEF score 50-75% likely, cannot accurately calculate given no PA pressure estimate - UA not indicative of acute infection -CXR (09/03): no fluid overload, bibasilar r>l opacities -BNP >1600 -Note: additional history from spouse indicates at baseline could ambulate 20 steps 4-5 x/day to bathroom with a walker, was mostly sedentary in recliner. 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 -Etiology is most likely debility, with contribution of suspected new heart failure with preserved EF after 3L of fluids, less likely infectious causes given normal WBC and afebrile, less likely acute MS flare given baseline neuro -Speech eval for suspected chronic aspiration results with no overt aspiration, recommends routine aspiration prevention techniques and no diet modification exam PLAN: -Dispo to [facility] -Note autonomic dysfunction 2/2 MS and c/b recent inactivity, he has transient mild hypotensive episodes with activity. This appears to be improving when he is up and OOB more frequently. #Multiple sclerosis, not in flare -Imaging: CT head 08/29/24: Periventricular decreased attenuation likely sequelae of remote ischemic small-vessel disease. -Receives outpatient Ocrelizumab infusions for MS - MRI head and c-spine w/wo reveal old lesions c/w MS but no apparent active disease, no prior imaging available for direct comparison PLAN: -Neurology consult, appreciate recs -Continue infusions as outpt #Type II diabetes mellitus c/b neuropathy -On metformin at home -A1c 5.6 09/03 PLAN: -Hold metformin -Gabapentin tab 200mg TID for neuropathy -CF SSI and Accu-Chek's CHRONIC MEDICAL CONDITIONS: GERD: home famotidine 20mg tab twice a day as needed Prostate cancer: receives leuprolide (eligard) 45mg(6 month)LA inj as outpatient, on home silodosin 8mg oral cap daily will convert to tamsulosin 0.8mg daily, methenamine Hippurate 1gm tab twice a day for UTI px CAD: aspirin 81mg chew tab daily HLD: atorvastatin calcium tab 20mg at bedtime HTN: bisoprolol fumarate 5mg tab daily, lisinopril 5mg daily FEN/DVT Ppx: F- PO E- Monitor and replete N- Carb 2 DVT Ppx: Prophylactic lovenox Code Status: DNR/DNI Dispo: [facility] Franck Turner MD PGY1 Internal Medicine Pager: [phone] /jeannette TURNER PGY1 Signed: 09/07/2024 12:33 /rosette/ PINKY NGUYEN HOSPITALIST Cosigned: 09/07/2024 14:29 09/07/2024 ADDENDUM STATUS: COMPLETED I have seen and examined pt and discussed plan of care with resident and participated in talbot decision making and agree with plan. pt has recovered from viral PNA and is ready for discharge. several discussions w and vet by PT/OT/SW/medical staff, etc. they had decided to go to [facility] then decided to go home with HH. however, as pt was not able to get out of bed they are now agreeable to [facility]. SW notified. they are interested in transferring MS care to [place] neurology. neurology was consulted during this hospitalization and will schedule for f/u in 2-4 weeks. /jeannette NGUYEN HOSPITALIST Signed: 09/07/2024 14:31 [facility] Sep 07, 2024 11:56 AM NEUROLOGY INPATIENT NOTE: LOCAL TITLE: NEUROLOGY INPATIENT PROGRESS NOTE STANDARD TITLE: NEUROLOGY INPATIENT NOTE DATE OF NOTE: SEP 07, 2024@11:56 ENTRY DATE: SEP 07, 2024@11:57:11 AUTHOR: GURVINDER AVELAR COSIGNER: [place] URGENCY: STATUS: COMPLETED NEUROLOGY INPATIENT PROGRESS NOTE Has ADDENDA Neurology Consult Follow-up Note: Summary:is a 79yo w/PMH of GERD, multiple sclerosis (dx in 2016 in [place]), prostate cancer, T2DM, HLD, HTN, COPD, Left eye macular degeneration. He has been having chronic weakness of his lower extremities (left more than right at baseline) and mostly non ambulatory at baseline. He has been followed outpatient by various neurologists and on Ocrevus infusion. He was admitted to OSH on 09/01 with falls and inability to walk and found to have pneumonia and UTI. There was some concern for MS flare at the outside hospital and he was reportedly given high dose steroids. [facility] and currently admitted to medicine for workup and tx of HF, pneumonia and UTI. Neurology was consulted on 09/03 given concern for MS flare. Rec included obtaining MRI head & C-spine w/ and w/o contrast SUBJECTIVE: Pt's was present at bedside and agrees that pt's mentation has improved significantly. We discussed following up in [place] clinic and answered all her questions. OBJECTIVE: VITALS: Tc: 97.3 F [36.3 C] (09/07/2024 08:30) Tmax: HR: 64 (09/07/2024 11:51) RR: 20 (09/07/2024 08:30) BP: 87/52 (09/07/2024 11:51) SpO2: SEP 07, 2024@11:51 -- PULSE OXIMETRY: 92 PHYSICIAL EXAM: GENERAL: no acute distress, cooperative SKIN: warm and dry, no rashes, wounds, ulcers EYES: conjunctiva clear, EOMI, PERRLA ENT: intact, mucous membranes moist, no apparent injury HEAD/NECK: neck supple, no apparent injury RESPIRATORY/THORAX: symmetric chest rise, nonlabored breathing CARDIOVASCULAR: no JVD, no edema GASTROINTESTINAL: nondistended MUSCULOSKELETAL: no joint swelling, no pain to touch PSYCHOLOGICAL: appropriate mood and behavior NEUROLOGICAL: Mental Status: A&O x 3, interactive, able to follow commands Speech: Intact Articulation CN 2-12: II - VF grossly intact III, IV, - PERRLA, EOMI V - Facial sensation intact VII - Brow raise and smile symmetrical VIII - Auditory acuity intact IX, X - Palate elevation symmetric, uvula midline XI - SCM and Trapezius strength intact XII - Tongue protrudes midline Motor: RUE: 5/5 LUE: 5/5 RLE: 4/5 LLE: 3/5- limited by hip pain Sensory: intact light touch throughout Reflexes: 2+ throughout Coordination: no ataxia with [id number] Gait/Station: Deferred MEDS: Active Inpatient Medications (including Supplies): Active Inpatient Medications Status 1) ACETAMINOPHEN TAB 975MG PO TID ACTIVE Indication: FOR PAIN/FEVER 2) ASPIRIN TAB,EC 81MG PO DAILY ACTIVE Indication: FOR HEART 3) ATORVASTATIN TAB 20MG PO QHS ACTIVE Indication: FOR CHOLESTEROL 4) BISOPROLOL TAB 5MG PO DAILY ACTIVE Indication: FOR BLOOD PRESSURE/HEART 5) DEXTROSE 15GM/32ML PKT GEL,ORAL 1 PACKET (15GM) PO Q15MIN ACTIVE PRN Give one tube (15gm) for BG 51-70mg/dl. Perform fingerstick 15 minutes after treatment; notify treating provider. Indication: FOR LOW BLOOD SUGAR 6) DEXTROSE 15GM/32ML PKT GEL,ORAL 2 PACKETS (30GM) PO Q15MIN ACTIVE PRN Give two tubes (30g) for BG 50 mg/dL and below. Perform fingerstick 15 minutes after treatment; notify treating provider. Indication: FOR LOW BLOOD SUGAR 7) DEXTROSE 50% INJ,SOLN 25ML (1/2 AMP/SYRINGE) IV Q15MIN PRN ACTIVE Give 50% dextrose 25 mL IV (over 3 min) STAT for BG of 51 - 70 mg/dL or NPO. Perform fingerstick 15 minutes after treatment; notify treating provider. Indication: FOR LOW BLOOD SUGAR 8) DEXTROSE 50% INJ,SOLN 50ML (1 AMP/SYRINGE) IV Q15MIN PRN ACTIVE Give 50% dextrose 50 mL IV (over 3 min) STAT for BG of 50 mg/dL and below or unresponsive or NPO. Perform fingerstick 15 minutes after treatment; notify treating provider. Indication: FOR LOW BLOOD SUGAR 9) DICLOFENAC NA 1% GEL,TOP 2 GRAM STRIP TOP Q6H PRN ACTIVE Indication: FOR PAIN 10) ENOXAPARIN (LMW HEPARIN) INJ 40MG/0.4ML SQ Q24H Instructions ACTIVE too long. See order details for full text. Indication: TO THIN BLOOD 11) FAMOTIDINE (famOTidine) TAB 20MG PO BID PRN ACTIVE Indication: FOR STOMACH 12) GABAPENTIN CAP,ORAL 200MG PO TID ACTIVE Indication: FOR NERVE PAIN 13) GLUCAGON INJ 1MG/1ML SC Q15MIN PRN Instructions too long. ACTIVE See order details for full text. Indication: FOR LOW BLOOD SUGAR 14) INSULIN ASPART (NOVOLOG) INJ CORRECTION DOSE:SEE COMMENTS SQ ACTIVE AT MEAL END Give after pt fed WITH scheduled meal/prandial insulin(if ordered) If premeal FSBS 131-180=1 unit; 181-230=2 unit; 231-280=3 unit; 281-330=4 unit; >330=5 unit. DO NOT HOLD for NPO. Indication: FOR BLOOD SUGAR 15) LISINOPRIL TAB 5MG PO DAILY ACTIVE Indication: FOR HIGH BLOOD PRESSURE 16) MELATONIN 3MG CAP/TAB 6MG PO QHS PRN ACTIVE Indication: FOR SLEEP 17) METHENAMINE HIPPURATE TAB 1GM PO BID DURATION: Continuation ACTIVE of chronic home therapy Indication: TO PREVENT URINARY TRACT INFECTION 18) PRESERVISION AREDS 2 (NON-SMOKER) CAP/ 1 SOFTGEL PO BID PC ACTIVE Indication: FOR EYE HEALTH 19) TAMSULOSIN (FLOMAX) CAP,ORAL 0.4MG PO QPM ACTIVE Indication: FOR PROSTATE DATA: WBC: 6.9 K/cmm (09/03/2024 05:00) H HCT: 0 PLT: 0 MCV: 83.6 fL (09/03/2024 05:00) RDW: 14.8 % (09/03/2024 05:00) INR: ____ PTT: ____ SODIUM: 128 mmol/L L (09/04/2024 05:00) POTASSIUM: 3.9 mmol/L (09/04/2024 05:00) CHLORIDE: 99 mmol/L (09/04/2024 05:00) CO2: 21 mmol/L L (09/04/2024 05:00) BUN: 13 mg/dL (09/04/2024 05:00) CREATININE: Collection DT Specimen Test Name Result Units Ref Range 09/04/2024 05:00 PLASMA!! CREATININE 0.75 mg/dL 0.72 - 1.25 !! Indicates COMMENTS AVAILABLE...Refer to Interim Lab Report. CALCIUM: 8.0 mg/dL L (09/04/2024 05:00) ANION GAP: 8.0 mEq/L (09/04/2024 05:00) AST: 11 U/L (08/29/2024 20:32) ALT: 15 U/L (08/29/2024 20:32) ALK PHOS: 97 U/L (08/29/2024 20:32) BILIRUBIN: ALBUMIN: 2.9 g/dL L (08/29/2024 20:32) PROTEIN: 5.9 g/dL L (08/29/2024 20:32) IMAGING: Radiology Report Data Exam Date: SEP 06, 2024@13:40 Procedure: MRI BRAIN W & W/O -- Impression Text -- Extensive deep white matter change in the distribution suggestion suggest suggestive of demyelinating disease. None of these enhance. There is some vacuolization of of these lesions End Radiology Report Data Date Procedure CPT Status Case # 09/06/2024 MRI C SPINE W & W/O [id number] Verified 293 CONTRAST(FURTHER SEQUENCES) Subtle focus of nonenhancing signal abnormality in the spinal at C2-3 level felt to represent a remote demyelinating plaque compatible with the stated of multiple sclerosis. Multilevel degenerative disc and facet disease as described with central canal and foraminal stenoses greatest neural impingement appearing to be at C4-5. NO PRIOR L-SPINE MRI EXAMS W/IN 5 YRS NO PRIOR T-SPINE MRI EXAMS W/IN 5 YRS SII - Alondra Image Impression Date Procedure CPT Status Case # 08/29/2024 CT HEAD W/O CONT [id number] Verified 61 No acute intracranial pathology. NO PRIOR MRI HEAD EXAMS W/IN 5 YRS Radiology Report Data Exam Date: AUG 29, 2024@20:28 Procedure: CT HEAD W/O CONT -- Impression Text -- No acute intracranial pathology. End Radiology Report Data NO PRIOR CT L-SPINE WITHIN PAST [address] T SPINE WITHIN PAST 5 YEARS NO 'NEUROLOGY EEG CONSULT RESPONSE' NOTES FOUND NO 'NEUROLOGY EMG/NCV CONSULT RESPONSE' NOTES FOUND A/P: Patient is a 79 year old transferred from [facility] to [facility] on September 03, 2023 and currently admitted to medicine service for Chronic weakness and there is suspicion for new onset Heart failure with elevated ProBNP, concern for pneumonia and UTI. Patient has a PMH of GERD, multiple sclerosis, prostate cancer, T2DM, HLD, HTN, COPD, Left eye macular degeneration. He has been having chronic weakness of his lower extremities (left more than right at baseline) and mostly non ambulatory at baseline. Per , patient broke his left leg in December, and has been bed ridden since then. He was mostly in his hospital bed since then, would take 3-5 steps with walker to shift to his lift chair and spend most of the day in it. He was able to go to the restroom (20 steps around 5 times a day) at baseline. denies any memory issues at baseline # History of MS # Concern for MS flare - reports that patient received his diagnosis of MS back in 2016 in [place] at age 70 years and was being followed by Dr.David Davila from [facility] for MS. It is possible but somewhat unusually to be diagnosed in later life with MS. - She reports that patient initial symptoms at the time of diagnosis were repetitive falls, weakness in his legs ( left > right), dragging of left leg and inability to walk long distances. He cannot see at baseline from left eye due to Macular degeneration. - reports that patient has been on Ocrelizumab since atleast 4 years, last received it around February 2024 when they were evaluated by Dr. Davila. He then retired in Mar 2024 and they used to do 6 months follow up with him. Patient has tolerated Ocrelizumab well except for side effect of diarrhea after the infusion, getting Ocrelizumab every 6 months. Next dose due in August 2024 (will be deferred given acute infection). - MRI Head w/ and w/o contrast did not demonstrate any enhancing lesions. - MRI C-spine w/ and w/o contrast demonstrated C2-C3 plaque (chronic), and no new lesions. We arranged outpatient follow up with in [place] clinic per family preference PLAN - Current deconditioning is more likely d/t leg fx and infections than from an MS flare. - Patient currently not a candidate for immunosuppressive therapy due to ongoing infections, and recent high-dose steroid therapy - We recommend treating underlying etiologies per primary team - We will arrange for Ocrevus infusion to be done at [place] since family is agreeable to this. informed that it may take a week or more to get this setup and she is agreeable. Staffed with , who agrees with the above plan. Thank you for the opportunity to participate in the care of this patient. No further recs at this time from Neurology. Please page the director of strategic communications resident with any questions or concerns Gurvinder Theodore MD Neurology PGY-4 [facility] /rosette/ GURVINDER THEODORE [employer] Secretary Signed: 09/07/2024 12:28 /rosette/ CATALINA RIVER Attending Physician Cosigned: 09/11/2024 21:07 09/08/2024 ADDENDUM STATUS: COMPLETED I interviewed and examined this today, and was assisted by Dr. Regan, Neurology resident physician. I discussed the physical findings, the clinical assessment, and the plan of care with the resident in regard to this patient. I reviewed and approve the attached Neurology Inpatient Progress Note written today. Wilsey was resting comfortably in bed. He feels better. Reports that at baseline, was using a walker at home. states for his quality of life, it would be nice for him to be able to walk to the bathroom and outside but they are not expecting that he will walk long distances. MRI head and C spine show changes consistent with known MS, no enhancing plaques to suggest a new flare. Discussed pseudoflares, and how when sick with something else, old MS symptoms can worsen for about 24-48 hours. They felt this made a lot of sense. They are transferring their care from [facility] the [place]. He was due for Ocrevus this week, but discussing delaying infusion by about 1 month given his acute illness. We will discuss this with the non formulary pharmacist, and we will set him up to see our MS clinic. /rosette/ CATALINA RIVER Attending Physician Signed: 09/08/2024 09:19 09/08/2024 ADDENDUM STATUS: COMPLETED will need to schedule with [facility] in Dec once the schedule is open. /JOSELITO Jordan RN [facility] Neurology Rda Signed: 09/08/2024 09:26 Receipt Acknowledged By: 09/08/2024 09:37 /jeannette JOSEPH [employer] IRON OPERATOR 09/14/2024 ADDENDUM STATUS: COMPLETED Schedule in [facility] on 10/07, OB AT 1545. Please notify patient. /JOSELITO Jordan RN [facility] Neurology Rda Signed: 09/14/2024 10:58 Receipt Acknowledged By: 09/15/2024 16:19 /jeannette JOSEPH ADVANCED PUFF IRON OPERATOR 09/15/2024 ADDENDUM STATUS: COMPLETED Called left message to call back to schedule per above. PROVIDER [facility] /jeannette JOSEPH ADVANCED PUFF IRON OPERATOR Signed: 09/15/2024 16:20 09/17/2024 ADDENDUM STATUS: COMPLETED OCrevus is no longer preferred at [place]. Attempted to call to discuss, phone went to voicemail. Called Mr. Chung who was at a facility and did not know his 's number/a better way to reach her. Will try to call again later to update her. /rosette/ CATALINA RIVER Attending Physician Signed: 09/17/2024 08:36 GURVINDER AVELAR-CDD [facility] Sep 07, 2024 09:50 AM NURSING INPATIENT NOTE: LOCAL TITLE: [facility] ACUTE INPATIENT NSG SHIFT ASSESSMENT STANDARD TITLE: NURSING INPATIENT NOTE DATE OF NOTE: SEP 07, 2024@09:50 ENTRY DATE: SEP 07, 2024@18:54:35 AUTHOR: AMANDA SANCHEZ COSIGNER: URGENCY: STATUS: COMPLETED Version 2.2 Charting in accordance with [facility] [place] STANDARD (ARAES) ACUTE INPATIENT/REHABILITATION NURSING ADMISSION SCREENING, ASSESSMENT, AND STANDARDS OF CARE ====== ASSESSMENT ====== ====== HANDOFF ====== Bedside report and handoff completed Safety check completed ====== PAIN ASSESSMENT ====== Patient's acceptable pain goal: 0 No pain Are you currently experiencing pain? No: Pain Score: 0 ====== ALMAZAN FALL SCALE & TIPS PROGRAM ====== Almazan Fall Scale: The Almazan Fall scale was performed and score was 80. This is indicative of high risk for falls. History of falling: immediate or within 3 months? Yes Secondary diagnosis: Yes Ambulatory aid: None/bedrest/nurse assist Intravenous therapy/Heparin lock: Yes Gait/Transferring: Impaired Mental Status: Oriented to own ability/knows own limitations Fall Tailoring Interventions for Patient Safety (TIPS) Fall TIPS initiated with patient: Yes Interventions: Communicate recent fall or risk of harm Bed/Chair Alarm on Assistance out of bed: Call for assistance before getting out of bed Safe patient handling device necessary Fall TIPS reviewed with patient: Yes Interventions: Communicate recent fall or risk of harm Bed/Chair Alarm on Assistance out of bed: Call for assistance before getting out of bed Safe patient handling device necessary ====== ENVIRONMENTAL SAFETY MANAGEMENT ====== Implemented safety standards of care: -[place] to unit & environment -Adequate room lighting -Bed in low and locked position -Call light within reach -Personal items within reach -Traffic path in room free of clutter -Non-slip footwear -Upper/half length side rails up for bed mobility -Sensory aids within reach -Encourage patient to utilize sensory support Additional safety measures: Alarms: Bed Chair Caregiver/family in attendance Close to nurses station Increased frequency of rounding ====== NEUROLOGICAL ====== Neurological Orientation: Person Place Situation Level of Consciousness (AVPU): Alert = Appears aware of and responsive to the environment on their own. Follows commands, opens eyes spontaneously, and tracks objects. 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 Operator Chief Bilateral: Moderate Upper Extremity Bilateral: Moves against some resistance Lower Extremity Bilateral: Moves against gravity Sensation: Upper Extremity Sensation Bilateral: Intact Lower Extremity Sensation Bilateral: Intact Temperature: Upper Extremity Temperature Bilateral: Warm Lower Extremity Temperature Bilateral: Warm ====== CARDIOVASCULAR ====== Heart Sounds: Normal (S1S2) Heart Rate/Rhythm (without logging tractor operator swamp): Regular Capillary Refill: R Hand: Less than or equal to 3 seconds L Hand: Less than or equal to 3 seconds R Foot: Greater than 3 seconds L Foot: Greater than 3 seconds Peripheral Pulses: All 4 extremities, 3+ normal. Edema: Present Pitting Location: ble Measurement: 1+ Barely detectable impression when finger is pressed into skin. ====== RESPIRATORY ====== Respirations: Unlabored Pattern: Regular Breath Sounds Auscultated: Anterior only Right Upper Lobe: Diminished Left Upper Lobe: Diminished Right Middle Lobe: Diminished Right Lower Lobe: Diminished Left Lower Lobe: Diminished ====== GASTROINTESTINAL ====== Last bowel movement: 09/06/2024 Bowel movement reported by patient-unwitnessed Elimination: Incontinent Abdominal Description: Rounded Palpation: Soft, Non-tender Bowel Sounds: RUQ: Active LUQ: Active RLQ: Active LLQ: Active ====== GENITOURINARY ====== Urinary Catheter: Type: External Male Device: Other device: purewick ===== INTEGUMENTARY/SKIN/WOUND - (INCLUDING CHICHI) SEE NOTE: VAAES SKIN INPECTION/ASSESSMENT ===== ===== INTEGUMENTARY/SKIN/WOUND - (INCLUDING CHICHI) ===== Assessment Type: SKIN REINSPECTION/REASSESSMENT SKIN INSPECTION: Skin Color: Usual for ethnicity Skin Temperature: Warm Skin Moisture: Normal Skin Turgor: Elastic (normal/immediate) Chichi Skin Assessment: The patient's Chichi Scale Score is 13. The patient is at moderate risk for development of pressure ulcers/injuries. Sensory perception -- ability to respond meaningfully to pressure- related discomfort Very limited. Moisture -- degree to which skin is exposed to moisture Occasionally moist. Activity -- ability to change and control body position Chair fast. Mobility -- ability to change and control body position Very limited. Nutrition -- usual food intake patterns Probably inadequate. Friction and shear Potential problem. INTERVENTIONS: No change in previous interventions as listed below Pressure Ulcer-Education 09/03/2024 Educate Importance Of Changing Position Education Materials On Ulcer Prevention Provide Education On Cause/Prevention Provide Education Regarding Tx Plan Pressure Ulcer-Friction/Shear 09/03/2024 Elevate Head of Bed For Meals Head of Bed Below 30 Degrees When Not Eating Use Bed Trapeze Or Pull Sheet When Head of Bed Elevated Raise Knee Pressure Ulcer-Moisture 09/03/2024 Condom Catheter Instruct Pt/Family To Request Assistance Maintain Clean Dry Skin Protective Barrier Ointment Pressure Ulcer-Nutrition 09/03/2024 Encourage Eating And Assist With Meals Monitor Fluid/Food Intake Offer Liquids Q2H When Turning Offer Ordered Supplements Provide/Encourage Oral Care As Needed Tray Set Up And Assistance Pressure Ulcer-Pressure Reducing 09/03/2024 Frequent Position Changes Heel/Elbow Pads Turn And Reposition Q2H Turn To Side Less Than 30 Degrees Pressure Ulcer-Remobilize 09/03/2024 Encourage Activity As Tolerated Rom Exercises RISK FACTORS THAT INCREASE RISK FOR DEVELOPING PRESSURE INJURIES: The patient/resident has the following: Age over 75 History of previous or current pressure ulcer/injury Device(s): (nasogastric tubes, oxygen tubing, urinary catheters, cell phone etc.) SKIN ALTERATIONS: Pressure Ulcer/Injury Documentation from the past year: Pressure Ulcer Stage 09/07/2024 Stage II Sacrum/coccyx 09/06/2024 Stage II Sacrum/coccyx SKIN ALTERATIONS: Wound Documentation from the past year: No data available for: Skin Integrity - Wound Skin Integrity - Wound Second Skin Integrity - Wound Third Skin Integrity - Wound Fourth Skin Integrity - Wound Fifth Skin Integrity - Wound Additional Pressure Ulcer/Injury: Stage 2: Location(s): Sacrum/coccyx No Edema Wound drainage none. ====== MOBILITY ====== Mobility Status: Total assist: Unable to sit up independently at the side of bed Gait: Unsteady Gait: Wide base ====== IV LINES ====== Peripheral IV: Line #1: Assessment: Location: Right, Antecubital Gauge: 20 Dressing Condition: Clean, dry, intact Site Condition: No redness, swelling, pain Line Status: Capped Flushed ====== PSYCHOSOCIAL ====== Type of Emotional Support Provided: 1:1 discussion, Anticipated outcomes, Ventilation of feelings daniel /rosette/ AMANDA SANCHEZ Registered Nurse Signed: 09/07/2024 19:04 AMANDA SANCHEZ-MALKA [facility] Sep 07, 2024 08:48 AM NURSING INPATIENT NOTE: LOCAL TITLE: [facility] NURSING FREQUENT DOCUMENTATION STANDARD TITLE: NURSING INPATIENT NOTE DATE OF NOTE: SEP 07, 2024@08:48 ENTRY DATE: SEP 07, 2024@08:48:04 AUTHOR: AMANDA SANCHEZ EXP COSIGNER: URGENCY: STATUS: COMPLETED Version 2.4 Charting in accordance with [place] APPROVED [place] STANDARD (ARAES) ACUTE INPATIENT/REHABILITATION NURSING ADMISSION SCREENING, ASSESSMENT, AND STANDARDS OF CARE ====== NATIONAL EARLY WARNING SCORE (NEWS) ====== The following vital measurements were used to complete the NEWS. Measurement DT TEMP PULSE RESP BP POx F(C) (L/MIN)(%) 09/07/2024 08:30 97.3(36.3) 77 20 143/75 93 The NEWS total is 2. 1. Temperature (C/F): Score = 0 36.1 - 38.0 C (96.9 - 100.4 F) 2. Pulse: Score = 0 51-90 3. Respirations: Score = 0 12-20 4. Blood Pressure (Only Systolic BP, mmHg): Score = 0 111-219 5. Pulse Oximetry: Score = 2 92% - 93% 6. Supplemental oxygen in use: Score = 0 No 7. AVPU: Score = 0 Alert Patient Status: Remains on unit // AMANDA SANCHEZ Registered Nurse Signed: 09/07/2024 08:48 AMANDA SANCHEZ-Sav [facility] Sep 07, 2024 08:47 AM NURSING E & M NOTE: LOCAL TITLE: NURSING 24 HOUR ORDER VERIFICATION NOTE STANDARD TITLE: NURSING E & M NOTE DATE OF NOTE: SEP 07, 2024@08:47 ENTRY DATE: SEP 07, 2024@08:47:47 AUTHOR: AMANDA SANCHEZ EXP COSIGNER: URGENCY: STATUS: COMPLETED Electronic and hard copy review for orders was completed. Life Sustaining Treatment Orders Cohort: Reminder Term: [facility]-LIFE SUSTAINING TREATMENT ORDERABLE ITEMS Orderable Item: LST DNR - DO NOT RESUSCITATE 09/05/2024@14:28 Status: active, Start date: 09/05/2024@14:28, Stop date: missing Duration: 2 D Orderable Item: LST NO INVASIVE MECHANICAL VENTILATION 09/05/2024@14:28 Status: active, Start date: 09/05/2024@14:28, Stop date: missing Duration: 2 D LST Note Verified /rosette/ AMANDA SANCHEZ Registered Nurse Signed: 09/07/2024 08:47 AMANDA SANCHEZ [facility] Sep 07, 2024 07:54 AM NURSING INTAKE & OUTPUT NOTE: LOCAL TITLE: NURSING INTAKE & OUTPUT NTOD STANDARD TITLE: NURSING INTAKE & OUTPUT NOTE DATE OF NOTE: SEP 07, 2024@07:54 ENTRY DATE: SEP 07, 2024@07:55:02 AUTHOR: KAREY SELLERS EXP COSIGNER: URGENCY: STATUS: COMPLETED Shift Totals: START TIME: Aug@18:00 STOP TIME: Aug@06:00 INTAKE PO Fluids: 240 ml OUTPUT Urine: 400 ml Total INTAKE: ml Total OUTPUT: ml Unmeasured OUTPUT Comments: 24 hour totals Intake Total: 1220ml Output Total: 1200ml Total Unmeasured Output: Comments: STOP TIME: Aug@06:00 SVS - Weight Measurement DT WEIGHT LB(KG)[BMI] 09/07/2024 06:38 391.32(177.50)[58*] /jeannette SELLERS DNP,AGPCNP,LEAD WORKER OF HOUSEKEEPING AND LAUNDRY RN Signed: 09/07/2024 07:56 KAREY SELLERS-VUD [facility] Sep 07, 2024 05:15 AM NURSING INPATIENT NOTE: LOCAL TITLE: [facility] ACUTE INPATIENT NSG SHIFT ASSESSMENT STANDARD TITLE: NURSING INPATIENT NOTE DATE OF NOTE: SEP 07, 2024@05:15 ENTRY DATE: SEP 07, 2024@06:21:51 AUTHOR: KAREY SELLERS EXP COSIGNER: URGENCY: STATUS: COMPLETED Version 2.2 Charting in accordance with [place] APPROVED [place] STANDARD (ARAES) ACUTE INPATIENT/REHABILITATION NURSING ADMISSION SCREENING, ASSESSMENT, AND STANDARDS OF CARE ====== REASSESSMENT ====== ====== PAIN ASSESSMENT ====== Patient's acceptable pain goal: Are you currently experiencing pain? No: Pain Score: 0 ====== NEUROLOGICAL ====== Neurological Orientation: Person Place Situation Level of Consciousness (AVPU): Alert = Appears aware of and responsive to the environment on their own. Follows commands, opens eyes spontaneously, and tracks objects. 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 Edema: Present Pitting Location: BLE Measurement: 2+ Slight indentation. 15 seconds to rebound. ====== RESPIRATORY ====== Respirations: Unlabored Pattern: Regular Breath Sounds Auscultated: Anterior only Left Upper Lobe: Clear Right Upper Lobe: Clear Right Middle Lobe: Clear Left Lower Lobe: Clear Right Lower Lobe: Clear ====== GASTROINTESTINAL ====== Last bowel movement: 09/06/2024 Abdominal Description: Rounded Protuberant (central obesity) Palpation: Soft, Non-tender Bowel Sounds: RUQ: Active LUQ: Active RLQ: Active LLQ: Active ====== GENITOURINARY ====== Elimination: Urinary catheter Urinary Catheter: Type: External Male Device: Other device: PURE WICK /rosette/ KAREY SELLERS DNP,WILLOWNP,LEAD WORKER OF HOUSEKEEPING AND LAUNDRY RN Signed: 09/07/2024 06:26 KAREY SELLERS [place]-CDD [facility] Sep 07, 2024 05:00 AM NURSING INPATIENT NOTE: LOCAL TITLE: [facility] NURSING FREQUENT DOCUMENTATION STANDARD TITLE: NURSING INPATIENT NOTE DATE OF NOTE: SEP 07, 2024@05:00 ENTRY DATE: SEP 07, 2024@06:19:58 AUTHOR: KAREY SELLERS EXP COSIGNER: URGENCY: STATUS: COMPLETED Version 2.4 Charting in accordance with [place] APPROVED [place] STANDARD (ARAES) ACUTE INPATIENT/REHABILITATION NURSING ADMISSION SCREENING, ASSESSMENT, AND STANDARDS OF CARE ====== NATIONAL EARLY WARNING SCORE (NEWS) ====== The vital signs below were used for scoring: Temperature: 97.6 Pulse: 79 Blood Pressure: 149/71 Respiration: 16 Pulse Oximetry: 94 The NEWS total is 1. 1. Temperature (C/F): Score = 0 36.1 - 38.0 C (96.9 - 100.4 F) 2. Pulse: Score = 0 51-90 3. Respirations: Score = 0 12-20 4. Blood Pressure (Only Systolic BP, mmHg): Score = 0 111-219 5. Pulse Oximetry: Score = 1 94% - 95% 6. Supplemental oxygen in use: Score = 0 No 7. AVPU: Score = 0 Alert Patient Status: Remains on unit /rosette/ KAREY SELLERS DNP,ABDULLAHI,LEAD WORKER OF HOUSEKEEPING AND LAUNDRY RN Signed: 09/07/2024 06:21 KAREY SELLERS-CDD [facility] Sep 06, 2024 10:11 PM NURSING INPATIENT NOTE: LOCAL TITLE: [facility] NURSING FREQUENT DOCUMENTATION STANDARD TITLE: NURSING INPATIENT NOTE DATE OF NOTE: SEP 06, 2024@22:11 ENTRY DATE: SEP 06, 2024@22:11:30 AUTHOR: KAREY SELLERS EXP COSIGNER: URGENCY: STATUS: COMPLETED Version 2.4 Charting in accordance with [facility] [place] STANDARD (ARAES) ACUTE INPATIENT/REHABILITATION NURSING ADMISSION SCREENING, ASSESSMENT, AND STANDARDS OF CARE ====== NATIONAL EARLY WARNING SCORE (NEWS) ====== The vital signs below were used for scoring: Temperature: 97.5 Pulse: 73 Blood Pressure: 159/74 Respiration: 18 Pulse Oximetry: 93 The NEWS total is 2. 1. Temperature (C/F): Score = 0 36.1 - 38.0 C (96.9 - 100.4 F) 2. Pulse: Score = 0 51-90 3. Respirations: Score = 0 12-20 4. Blood Pressure (Only Systolic BP, mmHg): Score = 0 111-219 5. Pulse Oximetry: Score = 2 92% - 93% 6. Supplemental oxygen in use: Score = 0 No 7. AVPU: Score = 0 Alert Patient Status: Remains on unit /rosette/ KAREY SELLERS DNP,AGKATERINANP,LEAD WORKER OF HOUSEKEEPING AND LAUNDRY RN Signed: 09/06/2024 22:12 KAREY SELLERS-MALKA [facility] Sep 06, 2024 10:00 PM NURSING INPATIENT NOTE: LOCAL TITLE: [facility] ACUTE INPATIENT NSG SHIFT ASSESSMENT STANDARD TITLE: NURSING INPATIENT NOTE DATE OF NOTE: SEP 06, 2024@22:00 ENTRY DATE: SEP 07, 2024@00:22:23 AUTHOR: KAREY SELLERS EXP COSIGNER: URGENCY: STATUS: COMPLETED Version 2.2 Charting in accordance with [facility] [place] STANDARD (ARAES) ACUTE INPATIENT/REHABILITATION NURSING ADMISSION SCREENING, ASSESSMENT, AND STANDARDS OF CARE ====== ASSESSMENT ====== ====== HANDOFF ====== Safety check completed ====== PAIN ASSESSMENT ====== Patient's acceptable pain goal: Are you currently experiencing pain? No: Pain Score: 0 ====== ALMAZAN FALL SCALE & TIPS PROGRAM ====== Almazan Fall Scale: The Almazan Fall scale was performed and score was 85. This is indicative of high risk for falls. History of falling: immediate or within 3 months? Yes Secondary diagnosis: Yes Ambulatory aid: Crutches/cane(s)/walker Intravenous therapy/Heparin lock: Yes Gait/Transferring: Weakness Mental Status: Oriented to own ability/knows own limitations Fall Tailoring Interventions for Patient Safety (TIPS) Fall TIPS reviewed with patient: Yes Interventions: Bed/Chair Alarm on ====== ENVIRONMENTAL SAFETY MANAGEMENT ====== Implemented safety standards of care: -[place] to unit & environment -Adequate room lighting -Bed in low and locked position -Call light within reach -Personal items within reach -Traffic path in room free of clutter -Non-slip footwear -Upper/half length side rails up for bed mobility -Sensory aids within reach -Encourage patient to utilize sensory support Additional safety measures: Alarms: Bed Close to nurses station Isolation Type: Droplet ====== NEUROLOGICAL ====== Neurological Orientation: Person Place Situation Level of Consciousness (AVPU): Alert = Appears aware of and responsive to the environment on their own. Follows commands, opens eyes spontaneously, and tracks objects. 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 Edema: Present Pitting Location: BLE Measurement: 2+ Slight indentation. 15 seconds to rebound. ====== RESPIRATORY ====== Respirations: Unlabored Pattern: Regular Breath Sounds Auscultated: Anterior only Left Upper Lobe: Clear Right Upper Lobe: Clear Right Middle Lobe: Clear Left Lower Lobe: Clear Right Lower Lobe: Clear ====== GASTROINTESTINAL ====== Last bowel movement: 09/06/2024 Abdominal Description: Rounded Protuberant (central obesity) Palpation: Soft, Non-tender Bowel Sounds: RUQ: Active LUQ: Active RLQ: Active LLQ: Active ====== GENITOURINARY ====== Elimination: Urinary catheter Urinary Catheter: Type: External Male Device: Other device: PURE WICK ===== INTEGUMENTARY/SKIN/WOUND - (INCLUDING CHICHI) SEE NOTE: VAAES SKIN INPECTION/ASSESSMENT ===== ===== INTEGUMENTARY/SKIN/WOUND - (INCLUDING CHICHI) ===== Assessment Type: SKIN REINSPECTION/REASSESSMENT SKIN INSPECTION: Skin Color: Usual for ethnicity Skin Temperature: Warm Skin Moisture: Normal Skin Turgor: Elastic (normal/immediate) Chichi Skin Assessment: The patient's Chichi Scale Score is 17. The patient is at mild risk for development of pressure ulcer/injury. Sensory perception -- ability to respond meaningfully to pressure- related discomfort No impairment. Moisture -- degree to which skin is exposed to moisture Occasionally moist. Activity -- ability to change and control body position Bedfast. Mobility -- ability to change and control body position Slightly limited. Nutrition -- usual food intake patterns Adequate. Friction and shear No apparent problem. INTERVENTIONS: No change in previous interventions as listed below Pressure Ulcer-Education 09/03/2024 Educate Importance Of Changing Position Education Materials On Ulcer Prevention Provide Education On Cause/Prevention Provide Education Regarding Tx Plan Pressure Ulcer-Friction/Shear 09/03/2024 Elevate Head of Bed For Meals Head of Bed Below 30 Degrees When Not Eating Use Bed Trapeze Or Pull Sheet When Head of Bed Elevated Raise Knee Pressure Ulcer-Moisture 09/03/2024 Condom Catheter Instruct Pt/Family To Request Assistance Maintain Clean Dry Skin Protective Barrier Ointment Pressure Ulcer-Nutrition 09/03/2024 Encourage Eating And Assist With Meals Monitor Fluid/Food Intake Offer Liquids Q2H When Turning Offer Ordered Supplements Provide/Encourage Oral Care As Needed Tray Set Up And Assistance Pressure Ulcer-Pressure Reducing 09/03/2024 Frequent Position Changes Heel/Elbow Pads Turn And Reposition Q2H Turn To Side Less Than 30 Degrees Pressure Ulcer-Remobilize 09/03/2024 Encourage Activity As Tolerated Rom Exercises RISK FACTORS THAT INCREASE RISK FOR DEVELOPING PRESSURE INJURIES: The patient/resident has the following: Age over 75 Pressure Ulcer/Injury: Stage 2: Location(s): Sacrum/coccyx No Edema Wound drainage none. ====== IV LINES ====== Peripheral IV: Line #1: Assessment: Location: Right, Antecubital Gauge: 20 Dressing Condition: Clean, dry, intact Site Condition: No redness, swelling, pain Line Status: Capped ====== PSYCHOSOCIAL ====== Type of Emotional Support Provided: Hospitalization discussion, Ventilation of feelings encouraged /jeannette SELLERS DNP,AGDORENE,LEAD WORKER OF HOUSEKEEPING AND LAUNDRY RN Signed: 09/07/2024 00:30 KAREY SELLERS-CDD [facility] Sep 06, 2024 09:44 PM NURSING INPATIENT NOTE: LOCAL TITLE: [facility] NURSING FREQUENT DOCUMENTATION STANDARD TITLE: NURSING INPATIENT NOTE DATE OF NOTE: SEP 06, 2024@21:44 ENTRY DATE: SEP 06, 2024@21:44:06 AUTHOR: ELIZABETH BELTRAN COSIGNER: URGENCY: STATUS: COMPLETED Version 2.4 Charting in accordance with [place] APPROVED [place] STANDARD (ARAES) ACUTE INPATIENT/REHABILITATION NURSING ADMISSION SCREENING, ASSESSMENT, AND STANDARDS OF CARE ====== ACTIVITIES OF DAILY LIVING ====== Hygiene ADLs: Oral Care: Non-ventilator patient: Patient dentures/partial plates cleaned: With assistance The was educated that poor oral hygiene increases the risk of hospital acquired pneumonia and dental problems like gingivitis and tooth decay. was educated using their preferred method and verbalized understanding. /rosette/ ELIZABETH BELTRAN NA tech Signed: 09/06/2024 21:44 ELIZABETH BELTRAN ELICIA-CDD [facility] Sep 06, 2024 07:09 PM NURSING INPATIENT NOTE: LOCAL TITLE: VAAES ACUTE INPATIENT NSG SHIFT ASSESSMENT STANDARD TITLE: NURSING INPATIENT NOTE DATE OF NOTE: SEP 06, 2024@19:09 ENTRY DATE: SEP 06, 2024@19:09:22 AUTHOR: AMANDA SANCHEZ EXP COSIGNER: URGENCY: STATUS: COMPLETED Version 2.2 Charting in accordance with [facility] [place] STANDARD (ARAES) ACUTE INPATIENT/REHABILITATION NURSING ADMISSION SCREENING, ASSESSMENT, AND STANDARDS OF CARE ====== REASSESSMENT ====== ===== INTEGUMENTARY/SKIN/WOUND - (INCLUDING CHICHI) SEE NOTE: VAAES SKIN INPECTION/ASSESSMENT ===== no changes from previous assessment unless otherwise noted /rosette/ AMANDA SANCHEZ Registered Nurse Signed: 09/06/2024 19:10 AMANDA SANCHEZCDD [facility] Sep 06, 2024 07:08 PM NURSING INTAKE & OUTPUT NOTE: LOCAL TITLE: NURSING INTAKE & OUTPUT DTOD STANDARD TITLE: NURSING INTAKE & OUTPUT NOTE DATE OF NOTE: SEP 06, 2024@19:08 ENTRY DATE: SEP 06, 2024@19:08:23 AUTHOR: AMANDA SANCHEZ EXP COSIGNER: URGENCY: STATUS: COMPLETED Shift Totals: START TIME: Aug@06:00 STOP TIME: Aug@18:00 INTAKE PO Fluids: 980 ml OUTPUT Urine: 800 ml Total INTAKE: 980 ml Total OUTPUT: 800 ml Unmeasured OUTPUT Date of Last Bowel Movement: Aug * If it has been more than 3 days since the patients last bowel movement please contact the provider. Comments: /rosette/ AMANDA SANCHEZ Registered Nurse Signed: 09/06/2024 19:09 AMANDA SANCHEZ [facility] Sep 06, 2024 04:05 PM RADIOLOGY EDUCATION NOTE: LOCAL TITLE: Mri Patient Education STANDARD TITLE: RADIOLOGY EDUCATION NOTE DATE OF NOTE: SEP 06, 2024@16:05 ENTRY DATE: SEP 06, 2024@16:05:48 AUTHOR: AKBAR JASSO EXP COSIGNER: URGENCY: STATUS: COMPLETED Prior to exam, time out to ensure correct patient and procedure was performed using the following identifiers: *Select at least TWO identifiers* Full patient name as stated by patient and compared to paper CPRS order., Full as stated by patient and compared to paper CPRS order. Prior to exam, the Radiology exam to be performed (including whether or not IV contrast was to be used) was confirmed. Yes Following time out, the patient was interviewed regarding pertinent medical history including allergies and previous experience with IV contrast media. Most recent eGFR value was reviewed. eGFR + CREATININE, SERUM - None Found Exam explained to pt, screening form reviewed with patient & contrast discussed if applicable. Patient/surrogate gave oral consent for the procedure MRI BRAIN & C-SPINE W/WO CONTRAST (MS protocol) HAS please add patient to X-RAY/MRI/BRN/NC, 1.5hrs on 09-06-24@2pm. [id number] /rosette/ AKBAR JASSO RT(R)(CT)(MR) ACTIVITIES SPECIALIST Signed: 09/06/2024 16:06 Receipt Acknowledged By: 09/07/2024 09:42 /rosette/ Rosemarie Blount ADVANCED AUTOMATIC RIVETING MACHINE OPERATOR AKBAR JASSO [facility] Sep 06, 2024 03:33 PM NURSING INPATIENT NOTE: LOCAL TITLE: [facility] NURSING FREQUENT DOCUMENTATION STANDARD TITLE: NURSING INPATIENT NOTE DATE OF NOTE: SEP 06, 2024@15:33 ENTRY DATE: SEP 06, 2024@15:33:50 AUTHOR: GHANSHYAM FARRIS COSIGNER: URGENCY: STATUS: COMPLETED Version 2.4 Charting in accordance with [place] APPROVED [place] STANDARD (ARAES) ACUTE INPATIENT/REHABILITATION NURSING ADMISSION SCREENING, ASSESSMENT, AND STANDARDS OF CARE ====== ACTIVITIES OF DAILY LIVING ====== Hygiene ADLs: Dressing: Upper Body: Dependent Lower Body: Dependent Eating: Minimal assist Oral Care: Non-ventilator patient: Patient dentures/partial plates cleaned: With assistance The Wilsey was educated that poor oral hygiene increases the risk of hospital acquired pneumonia and dental problems like gingivitis and tooth decay. Wilsey was educated using their preferred method and verbalized understanding. Pericare: Dependent Comment: Patient wears a purewick. Personal Care: Bath Dependent Toileting: Dependent ======= ACTIVITY/MOBILIZATION ======= Mobility Status: Total assist: Equipment utilized: Ceiling lift or full body floor-based lift Friction reducing devices (air/slide sheet) Gait: Unable to ambulate [facility] - Highest Level of Mobility achieved this shift: 2 - Turned self in bed/bed activities (ROM) ====== ENVIRONMENTAL SAFETY MANAGEMENT ====== Implemented safety standards of care: -[place] to unit & environment -Adequate room lighting -Bed in low and locked position -Call light within reach -Personal items within reach -Traffic path in room free of clutter -Non-slip footwear -Upper/half length side rails up for bed mobility -Sensory aids within reach -Encourage patient to utilize sensory support Additional safety measures: Mobility support items readily available ====== GASTROINTESTINAL ====== Stool: Description: Soft Color: Brown Amount: Small Elimination: Incontinent ====== GENITOURINARY ====== Elimination: Incontinent Color/Characteristic: Martha ======= ORAL INTAKE (PERCENTAGE OF MEAL EATEN) ======= Breakfast: 26% - 50% Lunch: 26% - 50% ======= Pain ======= DVPRS Scale Location: [facility] Pain Rating Scale (DVPRS): 0 No pain Pain Score: 0 Patient's acceptable pain goal: Pain Alleviating Interventions: Medication, see RAGINI Quinteros /rosette/ Ghanshyam Farris, [place] Stage Setting Painter Apprentice Signed: 09/06/2024 15:37 GHANSHYAM FARRIS-CDD [facility] Sep 06, 2024 11:30 AM NURSING INPATIENT NOTE: LOCAL TITLE: [facility] ACUTE INPATIENT NSG SHIFT ASSESSMENT STANDARD TITLE: NURSING INPATIENT NOTE DATE OF NOTE: SEP 06, 2024@11:30 ENTRY DATE: SEP 06, 2024@11:50:14 AUTHOR: AMANDA SANCHEZ COSIGNER: URGENCY: STATUS: COMPLETED Version 2.2 Charting in accordance with [place] APPROVED [place] STANDARD (ARAES) ACUTE INPATIENT/REHABILITATION NURSING ADMISSION SCREENING, ASSESSMENT, AND STANDARDS OF CARE ====== ASSESSMENT ====== ====== HANDOFF ====== Bedside report and handoff completed Safety check completed ====== PAIN ASSESSMENT ====== Patient's acceptable pain goal: 0 No pain Are you currently experiencing pain? No: Pain Score: 0 ====== ALMAZAN FALL SCALE & TIPS PROGRAM ====== Almazan Fall Scale: The Almazan Fall scale was performed and score was 80. This is indicative of high risk for falls. History of falling: immediate or within 3 months? Yes Secondary diagnosis: Yes Ambulatory aid: None/bedrest/nurse assist Intravenous therapy/Heparin lock: Yes Gait/Transferring: Impaired Mental Status: Oriented to own ability/knows own limitations Fall Tailoring Interventions for Patient Safety (TIPS) Fall TIPS initiated with patient: Yes Interventions: Communicate recent fall or risk of harm Walking Aids: Walker Bed/Chair Alarm on Assistance out of bed: Call for assistance before getting out of bed Safe patient handling device necessary Fall TIPS reviewed with patient: Yes Interventions: Communicate recent fall or risk of harm Walking Aids: Walker Bed/Chair Alarm on Assistance out of bed: Call for assistance before getting out of bed Safe patient handling device necessary ====== ENVIRONMENTAL SAFETY MANAGEMENT ====== Implemented safety standards of care: -[place] to unit & environment -Adequate room lighting -Bed in low and locked position -Call light within reach -Personal items within reach -Traffic path in room free of clutter -Non-slip footwear -Upper/half length side rails up for bed mobility -Sensory aids within reach -Encourage patient to utilize sensory support Additional safety measures: Alarms: Bed Chair Caregiver/family in attendance Close to nurses station Increased frequency of rounding ====== NEUROLOGICAL ====== Neurological Orientation: Person Place Situation Level of Consciousness (AVPU): Alert = Appears aware of and responsive to the environment on their own. Follows commands, opens eyes spontaneously, and tracks objects. 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 Edema: Present Pitting Location: ble Measurement: 1+ Barely detectable impression when finger is pressed into skin. ====== RESPIRATORY ====== Respirations: Unlabored Pattern: Regular Breath Sounds Auscultated: Anterior only Right Upper Lobe: Diminished Left Upper Lobe: Diminished Right Middle Lobe: Diminished Right Lower Lobe: Diminished Left Lower Lobe: Diminished Supplemental Oxygen Therapy: Flow rate (liters/min): 1 Method: Nasal cannula ====== GASTROINTESTINAL ====== Last bowel movement: 09/06/2024 Elimination: Incontinent Palpation: Soft, Non-tender Bowel Sounds: RUQ: Active LUQ: Active RLQ: Active LLQ: Active ====== GENITOURINARY ====== Elimination: Incontinent Urinary catheter Urinary Catheter: Type: External Male Device: Other device: purewick ===== INTEGUMENTARY/SKIN/WOUND - (INCLUDING CHICHI) SEE NOTE: VAAES SKIN INPECTION/ASSESSMENT ===== ===== INTEGUMENTARY/SKIN/WOUND - (INCLUDING CHICHI) ===== Assessment Type: INITIAL SKIN INSPECTION/ASSESSMENT SKIN INSPECTION: Skin Color: Usual for ethnicity Skin Temperature: Warm Skin Moisture: Normal Skin Turgor: Elastic (normal/immediate) Chichi Skin Assessment: The patient's Chichi Scale Score is 13. The patient is at moderate risk for development of pressure ulcers/injuries. Sensory perception -- ability to respond meaningfully to pressure-related discomfort Very limited. Moisture -- degree to which skin is exposed to moisture Occasionally moist. Activity -- ability to change and control body position Chair fast. Mobility -- ability to change and control body position Very limited. Nutrition -- usual food intake patterns Probably inadequate. Friction and shear Potential problem. INTERVENTIONS: No change in previous interventions as listed below Pressure Ulcer-Education 09/03/2024 Educate Importance Of Changing Position Education Materials On Ulcer Prevention Provide Education On Cause/Prevention Provide Education Regarding Tx Plan Pressure Ulcer-Friction/Shear 09/03/2024 Elevate Head of Bed For Meals Head of Bed Below 30 Degrees When Not Eating Use Bed Trapeze Or Pull Sheet When Head of Bed Elevated Raise Knee Pressure Ulcer-Moisture 09/03/2024 Condom Catheter Instruct Pt/Family To Request Assistance Maintain Clean Dry Skin Protective Barrier Ointment Pressure Ulcer-Nutrition 09/03/2024 Encourage Eating And Assist With Meals Monitor Fluid/Food Intake Offer Liquids Q2H When Turning Offer Ordered Supplements Provide/Encourage Oral Care As Needed Tray Set Up And Assistance Pressure Ulcer-Pressure Reducing 09/03/2024 Frequent Position Changes Heel/Elbow Pads Turn And Reposition Q2H Turn To Side Less Than 30 Degrees Pressure Ulcer-Remobilize 09/03/2024 Encourage Activity As Tolerated Rom Exercises RISK FACTORS THAT INCREASE RISK FOR DEVELOPING PRESSURE INJURIES: The patient/resident has the following: Age over 75 History of previous or current pressure ulcer/injury Device(s): (nasogastric tubes, oxygen tubing, urinary catheters, cell phone etc.) SKIN ALTERATIONS: Pressure Ulcer/Injury Documentation from the past year: Pressure Ulcer Stage 09/05/2024 Stage II Sacrum/coccyx 09/04/2024 Stage II Sacrum/coccyx SKIN ALTERATIONS: Wound Documentation from the past year: No data available for: Skin Integrity - Wound Skin Integrity - Wound Second Skin Integrity - Wound Third Skin Integrity - Wound Fourth Skin Integrity - Wound Fifth Skin Integrity - Wound Additional Pressure Ulcer/Injury: Stage 2: Location(s): Sacrum/coccyx No Edema Wound drainage none. ====== MOBILITY ====== Mobility Status: Total assist: Unable to sit up independently at the side of bed Gait: Unsteady Gait: Wide base ====== IV LINES ====== Peripheral IV: Line #1: Assessment: Location: Right, Antecubital Gauge: 20 Dressing Condition: Clean, dry, intact Site Condition: No redness, swelling, pain Line Status: Capped Flushed ====== PSYCHOSOCIAL ====== Type of Emotional Support Provided: 1:1 discussion, Family conference, Anticipated outcomes, Ventilation of feelings encouraged /rosette/ AMANDA SANCHEZ Registered Nurse Signed: 09/06/2024 12:11 AMANDA SANCHEZ-MALKA [facility] Sep 06, 2024 11:04 AM INTERNAL MEDICINE NOTE: LOCAL TITLE: MEDICINE SOAP NOTE STANDARD TITLE: INTERNAL MEDICINE NOTE DATE OF NOTE: SEP 06, 2024@11:04 ENTRY DATE: SEP 06, 2024@11:04:35 AUTHOR: FRANCK TURNER COSIGNER: PINKY NGUYEN URGENCY: STATUS: COMPLETED MEDICINE SOAP NOTE Has ADDENDA Overnight: NAEO SUBJECTIVE: More alert and conversant this morning, expresses no complaints. I was at bedside after patient participated in PT, he had a near syncopal event upon standing with recovery after returning to [facility]. Wilsey is agreeable to MRI today. ROS: Reviewed and negative unless noted otherwise above. OBJECTIVE: VITALS: Tc: 97.4 F [36.3 C] (09/06/2024 10:22) HR: 71 (09/06/2024 10:22) RR: 18 (09/06/2024 10:22) BP: 102/49 (09/06/2024 10:22) SpO2: SEP 06, 2024@10:22 -- PULSE OXIMETRY: 93 PHYSICAL EXAM: GENERAL : lying in bed, in NAD. is at bedside. HEENT: anicteric sclera, moist mucus membranes. CVS : RRR w/ normal S1 and S2. +1 peripheral edema to LE bilaterally. PULM : Normal work of breathing on 1L NC. Lungs CTAB though poor effort. GI : soft, nontender, nondistended. MSK : No joint swelling or deformity. NEURO : CN II-XII grossly intact, AAO x3. No focal deficits. Moves all extremities spontaneously. PSYCH : mood & affect appropriate. MEDS: Active Inpatient Medications (including Supplies): Active Inpatient Medications Status 1) ACETAMINOPHEN TAB 975MG PO TID ACTIVE Indication: FOR PAIN/FEVER 2) ASPIRIN TAB,EC 81MG PO DAILY ACTIVE Indication: FOR HEART 3) ATORVASTATIN TAB 20MG PO QHS ACTIVE Indication: FOR CHOLESTEROL 4) BISOPROLOL TAB 5MG PO DAILY ACTIVE Indication: FOR BLOOD PRESSURE/HEART 5) DEXTROSE 15GM/32ML PKT GEL,ORAL 1 PACKET (15GM) PO Q15MIN ACTIVE PRN Give one tube (15gm) for BG 51-70mg/dl. Perform fingerstick 15 minutes after treatment; notify treating provider. Indication: FOR LOW BLOOD SUGAR 6) DEXTROSE 15GM/32ML PKT GEL,ORAL 2 PACKETS (30GM) PO Q15MIN ACTIVE PRN Give two tubes (30g) for BG 50 mg/dL and below. Perform fingerstick 15 minutes after treatment; notify treating provider. Indication: FOR LOW BLOOD SUGAR 7) DEXTROSE 50% INJ,SOLN 25ML (1/2 AMP/SYRINGE) IV Q15MIN PRN ACTIVE Give 50% dextrose 25 mL IV (over 3 min) STAT for BG of 51 - 70 mg/dL or NPO. Perform fingerstick 15 minutes after treatment; notify treating provider. Indication: FOR LOW BLOOD SUGAR 8) DEXTROSE 50% INJ,SOLN 50ML (1 AMP/SYRINGE) IV Q15MIN PRN ACTIVE Give 50% dextrose 50 mL IV (over 3 min) STAT for BG of 50 mg/dL and below or unresponsive or NPO. Perform fingerstick 15 minutes after treatment; notify treating provider. Indication: FOR LOW BLOOD SUGAR 9) DICLOFENAC NA 1% GEL,TOP 2 GRAM STRIP TOP Q6H PRN ACTIVE Indication: FOR PAIN 10) ENOXAPARIN (LMW HEPARIN) INJ 40MG/0.4ML SQ Q24H Instructions ACTIVE too long. See order details for full text. Indication: TO THIN BLOOD 11) FAMOTIDINE (famOTidine) TAB 20MG PO BID PRN ACTIVE Indication: FOR STOMACH 12) GABAPENTIN CAP,ORAL 200MG PO TID ACTIVE Indication: FOR NERVE PAIN 13) GLUCAGON INJ 1MG/1ML SC Q15MIN PRN Instructions too long. ACTIVE See order details for full text. Indication: FOR LOW BLOOD SUGAR 14) INSULIN ASPART (NOVOLOG) INJ CORRECTION DOSE:SEE COMMENTS SQ ACTIVE AT MEAL END Give after pt fed WITH scheduled meal/prandial insulin(if ordered) If premeal FSBS 131-180=1 unit; 181-230=2 unit; 231-280=3 unit; 281-330=4 unit; >330=5 unit. DO NOT HOLD for NPO. Indication: FOR BLOOD SUGAR 15) LISINOPRIL TAB 5MG PO DAILY ACTIVE Indication: FOR HIGH BLOOD PRESSURE 16) MELATONIN 3MG CAP/TAB 6MG PO QHS PRN ACTIVE Indication: FOR SLEEP 17) METHENAMINE HIPPURATE TAB 1GM PO BID DURATION: Continuation ACTIVE of chronic home therapy Indication: TO PREVENT URINARY TRACT INFECTION 18) PRESERVISION AREDS 2 (NON-SMOKER) CAP/ 1 SOFTGEL PO BID PC ACTIVE Indication: FOR EYE HEALTH 19) TAMSULOSIN (FLOMAX) CAP,ORAL 0.4MG PO QPM ACTIVE Indication: FOR PROSTATE DATA: WBC: 6.9 K/cmm (09/03/2024 05:00) H HCT: 0 PLT: 0 MCV: 83.6 fL (09/03/2024 05:00) RDW: 14.8 % (09/03/2024 05:00) INR: ____ PTT: ____ SODIUM: 128 mmol/L L (09/04/2024 05:00) POTASSIUM: 3.9 mmol/L (09/04/2024 05:00) CHLORIDE: 99 mmol/L (09/04/2024 05:00) CO2: 21 mmol/L L (09/04/2024 05:00) BUN: 13 mg/dL (09/04/2024 05:00) CREATININE: Collection DT Specimen Test Name Result Units Ref Range 09/04/2024 05:00 PLASMA!! CREATININE 0.75 mg/dL 0.72 - 1.25 !! Indicates COMMENTS AVAILABLE...Refer to Interim Lab Report. CALCIUM: 8.0 mg/dL L (09/04/2024 05:00) ANION GAP: 8.0 mEq/L (09/04/2024 05:00) AST: 11 U/L (08/29/2024 20:32) ALT: 15 U/L (08/29/2024 20:32) ALK PHOS: 97 U/L (08/29/2024 20:32) BILIRUBIN: ALBUMIN: 2.9 g/dL L (08/29/2024 20:32) PROTEIN: 5.9 g/dL L (08/29/2024 20:32) HgA1C: Collection DT Specimen Test Name Result Units Ref Range 09/03/2024 05:00 BLOOD HGB 9.5 L g/dL 14.0 - 18.0 IMAGING: A/P: 79M with PMH COPD presents for chronic weakness iso viral PNA and debility. #Viral PNA d/t human rhinovirus -Resp PCR + PLAN: -Supportive care -No longer requiring supp O2 -Eleanor Tylenol for myalgias #Weakness, multifactorial -TTE with EF 60-60%, HFpEF score 50-75% likely, cannot accurately calculate given no PA pressure estimate - UA not indicative of acute infection -CXR (09/03): no fluid overload, bibasilar r>l opacities -BNP >1600 -Note: additional history from spouse indicates at baseline could ambulate 20 steps 4-5 x/day to bathroom with a walker, was mostly sedentary in recliner. 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 -Etiology is most likely debility, with contribution of suspected new heart failure with preserved EF after 3L of fluids, less likely infectious causes given normal WBC and afebrile, less likely acute MS flare given baseline neuro exam PLAN: -Strict I/O -BCx NGTD -Speech eval for suspected chronic aspiration results with no overt aspiration, recommends routine aspiration prevention techniques and no diet modification -PT/OT with JOIE recs -Lab holiday 09/07 #Multiple sclerosis -Imaging: CT head 08/29/24: Periventricular decreased attenuation likely sequelae of remote ischemic small-vessel disease. -Receives outpatient Ocrelizumab infusions for MS PLAN: -Neurology consult, appreciate recs -Ordered MRI head and c-spine w/wo, to be completed 09/06 #Type II diabetes mellitus c/b neuropathy -On metformin at home -A1c 5.6 09/03 PLAN: -Hold metformin -Gabapentin tab 200mg TID for neuropathy -CF SSI and Accu-Chek's CHRONIC MEDICAL CONDITIONS: GERD: home famotidine 20mg tab twice a day as needed Prostate cancer: receives leuprolide (eligard) 45mg(6 month)LA inj as outpatient, on home silodosin 8mg oral cap daily will convert to tamsulosin 0.8mg daily, methenamine Hippurate 1gm tab twice a day for UTI px CAD: aspirin 81mg chew tab daily HLD: atorvastatin calcium tab 20mg at bedtime HTN: bisoprolol fumarate 5mg tab daily, lisinopril 5mg daily FEN/DVT Ppx: F- PO E- Monitor and replete N- Carb 2 DVT Ppx: Prophylactic lovenox Code Status: DNR/DNI Dispo: JOIE Franck Turner MD PGY1 Internal Medicine Pager: [phone] /jeannette TURNER PGY1 Signed: 09/06/2024 11:09 /rosette/ PINKY NGUYEN HOSPITALIST Cosigned: 09/06/2024 11:59 09/06/2024 ADDENDUM STATUS: COMPLETED I have seen and examined pt and discussed plan of care with resident and participated in talbot decision making and agree with plan. awaiting PT/OT assessment and recs for possible rehab with potential to transition to long erm care pending degree of functional recovery in rehab. he is feeling better overall and recovering from viral PNA. neurology team recommending MRI brain and C-spine to further assess MS. however, given acute weakness was likely related to viral illness this may not be necessary at this time. will discuss with neuro and he can f/u with non-VA neurologist at d/c. Of note, he likely has developed autonomic dysfunction as result of MS given intermittnet drop in BP (negative orthostasis on admission). encourage out of bed to chair TID with nursing while awaiting PT/OT assessment. /rosette/ PINKY NGUYEN HOSPITALIST Signed: 09/06/2024 12:02 [facility] Sep 06, 2024 08:44 AM ADDENDUM: LOCAL TITLE: Addendum STANDARD TITLE: ADDENDUM DATE OF NOTE: SEP 06, 2024@08:44:22 ENTRY DATE: SEP 06, 2024@08:44:23 AUTHOR: SARA BECERRIL COSIGNER: URGENCY: STATUS: COMPLETED will schedule with [facility] MS clinic in Dec once schedule/ profile is open. /JOSELITO Jordan RN [facility] Neurology Rda Signed: 09/06/2024 08:45 Receipt Acknowledged By: 09/06/2024 12:02 /es/ ISMAEL L JAKE [employer] IRON OPERATOR --- Original Document --- 09/04/24 NEUROLOGY INPATIENT PROGRESS NOTE: CONSULT FOLLOW UP NOTE: Neurology Consult Follow-up Note: SUBJECTIVE: Overnight: No acute event overnight. met at bedside and reports improvement in patient's mental status Patient reports feeling unwell but unable to explain further. He denied being in pain of fatigue. OBJECTIVE: VITALS: Personally reviewed and interpreted Tc: 97.0 F [36.1 C] (09/04/2024 09:03) HR: 74 (09/04/2024 09:03) RR: 18 (09/04/2024 09:03) BP: 135/68 (09/04/2024 09:03) SpO2: SEP 04, 2024@09:03 -- PULSE OXIMETRY: 92 (with supplemental O2 1.0 l/min % via NASAL CANNULA) PHYSICAL EXAM: GENERAL: ill appearing, cooperative SKIN: warm and dry, no rashes, wounds, ulcers EYES: conjunctiva clear, EOMI, PERRLA ENT: intact, mucous membranes moist, no apparent injury HEAD/NECK: neck supple, no apparent injury RESPIRATORY/THORAX: breath sounds equal, respirations non-labored,coarse crepitations in Right lower lung zone CARDIOVASCULAR: regular rate and rhythm, normal S1 and S2, no murmurs, no edema GASTROINTESTINAL: bowel sounds normal, soft, non-tender, no hepatosplenomegaly MUSCULOSKELETAL: no joint swelling, full range of motion in all extremities; scar over left knee PSYCHOLOGICAL: appropriate mood and behavior NEUROLOGICAL: Mental Status: Drowsy, oriented to person only at initial evaluation but later oriented to place, day and month, interactive, able to follow commands with some difficulty Speech: Intact Articulation CN 2-12: II - VFs full to confrontation III, IV, - PERRLA, EOMI V - Facial sensation intact VII - Brow raise and smile symmetrical VIII - Auditory acuity intact IX, X - Palate elevation symmetric, uvula midline XI - SCM and Trapezius strength intact XII - Tongue protrudes midline Motor: RUE: 5/5 LUE: 4/5 (pronator drift) RLE: 5/5 LLE: 3/5 (hip flexion), 4/5 (ankle dorsiflexion), other muscle groups 5/5 Sensory: intact light touch throughout Reflexes: trace throughout, plantar response extensor bilaterally Coordination: no ataxia with [id number] testing Gait/Station: deferred MEDS: Active Inpatient Medications (including Supplies): Active Inpatient Medications Status 1) ACETAMINOPHEN TAB 650MG PO Q6H PRN For fever >101F or 1st ACTIVE line for mild/moderate pain Indication: FOR PAIN/FEVER 2) ASPIRIN TAB,EC 81MG PO DAILY ACTIVE Indication: FOR HEART 3) ATORVASTATIN TAB 20MG PO QHS ACTIVE Indication: FOR CHOLESTEROL 4) BISOPROLOL TAB 5MG PO DAILY ACTIVE Indication: FOR BLOOD PRESSURE/HEART 5) DEXTROSE 15GM/32ML PKT GEL,ORAL 1 PACKET (15GM) PO Q15MIN ACTIVE PRN Give one tube (15gm) for BG 51-70mg/dl. Perform fingerstick 15 minutes after treatment; notify treating provider. Indication: FOR LOW BLOOD SUGAR 6) DEXTROSE 15GM/32ML PKT GEL,ORAL 2 PACKETS (30GM) PO Q15MIN ACTIVE PRN Give two tubes (30g) for BG 50 mg/dL and below. Perform fingerstick 15 minutes after treatment; notify treating provider. Indication: FOR LOW BLOOD SUGAR 7) DEXTROSE 50% INJ,SOLN 25ML (1/2 AMP/SYRINGE) IV Q15MIN PRN ACTIVE Give 50% dextrose 25 mL IV (over 3 min) STAT for BG of 51 - 70 mg/dL or NPO. Perform fingerstick 15 minutes after treatment; notify treating provider. Indication: FOR LOW BLOOD SUGAR 8) DEXTROSE 50% INJ,SOLN 50ML (1 AMP/SYRINGE) IV Q15MIN PRN ACTIVE Give 50% dextrose 50 mL IV (over 3 min) STAT for BG of 50 mg/dL and below or unresponsive or NPO. Perform fingerstick 15 minutes after treatment; notify treating provider. Indication: FOR LOW BLOOD SUGAR 9) DICLOFENAC NA 1% GEL,TOP 2 GRAM STRIP TOP Q6H PRN ACTIVE Indication: FOR PAIN 10) ENOXAPARIN (LMW HEPARIN) INJ 40MG/0.4ML SQ Q24H Instructions ACTIVE too long. See order details for full text. Indication: TO THIN BLOOD 11) FAMOTIDINE (famOTidine) TAB 20MG PO BID PRN ACTIVE Indication: FOR STOMACH 12) GABAPENTIN CAP,ORAL 200MG PO TID ACTIVE Indication: FOR NERVE PAIN 13) GLUCAGON INJ 1MG/1ML SC Q15MIN PRN Instructions too long. ACTIVE See order details for full text. Indication: FOR LOW BLOOD SUGAR 14) INSULIN ASPART (NOVOLOG) INJ CORRECTION DOSE:SEE COMMENTS SQ ACTIVE AT MEAL END Give after pt fed WITH scheduled meal/prandial insulin(if ordered) If premeal FSBS 131-180=1 unit; 181-230=2 unit; 231-280=3 unit; 281-330=4 unit; >330=5 unit. DO NOT HOLD for NPO. Indication: FOR BLOOD SUGAR 15) LISINOPRIL TAB 5MG PO DAILY ACTIVE Indication: FOR HIGH BLOOD PRESSURE 16) METHENAMINE HIPPURATE TAB 1GM PO BID DURATION: Continuation ACTIVE of chronic home therapy Indication: TO PREVENT URINARY TRACT INFECTION 17) PRESERVISION AREDS 2 (NON-SMOKER) CAP/ 1 SOFTGEL PO BID PC ACTIVE Indication: FOR EYE HEALTH 18) TAMSULOSIN (FLOMAX) CAP,ORAL 0.4MG PO QPM ACTIVE Indication: FOR PROSTATE DATA: Notable for hyponatremia and normal anion gap metabolic acidosis IMAGING: No new neurological imaging since last review. A/P: Patient is a 79 year old Wilsey transferred from [facility] to [facility] on September 03, 2023 and currently admitted to medicine service for Chronic weakness and there is suspicion for new onset Heart failure with elevated ProBNP, concern for pneumonia and UTI. Patient has a PMH of GERD, multiple sclerosis, prostate cancer, T2DM, HLD, HTN, COPD, Left eye macular degeneration. He has been having chronic weakness of his lower extremities (left more than right at baseline) and mostly non ambulatory at baseline. Per , patient broke his left leg in December, and has been bed ridden since then. He was mostly in his hospital bed since then, would take 3-5 steps with walker to shift to his lift chair and spend most of the day in it. He was able to go to the restroom (20 steps around 5 times a day) at baseline. denies any memory issues at baseline # history of MS # Concern for MS flare - reports that patient received his diagnosis of MS back in 2016 in [place] at age 70 years and was being followed by Dr.David Davila from [facility] for MS. It is possible but somewhat unusually to be diagnosed in later life with MS. - She reports that patient initial symptoms at the time of diagnosis were repetitive falls, weakness in his legs ( left > right), dragging of left leg and inability to walk long distances. He cannot see at baseline from left eye due to Macular degeneration. - reports that patient has been on Ocrelizumab since atleast 4 years, last received it around February 2024 when they were evaluated by Dr. Davila. He then retired in Mar 2024 and they used to do 6 months follow up with him. Patient has tolerated Ocrelizumab well except for side effect of diarrhea after the infusion, getting Ocrelizumab every 6 months. - reports that the patient has not received any head/spine imaging in the past 3-4 years. - She denied patient having new symptoms from MS over time- focal weakness, numbness in extremities, shooting pains, painful eye movements. She reports that patient has some choking at baseline since past few months. - reports improvement in mental status since admission. PLAN - Current deconditioning and encephalopathy is more likely in the setting of medical condition and infections than from an MS flare. - Follow up MRI head w and wo contrast and MRI C spine w and wo contrast for further evaluation. - Patient currently not a candidate for immunosuppressive therapy due to ongoing infections, and recent high-dose steroid therpay - We recommend treating underlying etiologies per primary team - We arrange outpatient follow up with in [place] clinic since family is agreeable to this . - We will continue to follow Staffed with Dr Bashir who agrees with above plan. Kina Phillips MD Neurology PGY-4 [phone] /rosette/ KINA PHILLIPS MD Signed: 09/04/2024 12:37 /es/ SISSY BASHIR Cosigned: 09/04/2024 12:47 09/04/2024 ADDENDUM STATUS: COMPLETED Mr. Chung ([id number]) was seen today 09/04/[address] Kina Phillips, Neurology resident. I reviewed and approved the entire content of the attached Neurology Progress Note written by Dr. Phillips. He is a 79yo with history of diagnosis of multiple sclerosis made in [place] in 2016. He has been followed outpatient by various neurologists and on Ocrevus infusion. He was admitted with falls and inability to walk to OSH and found to have pneumonia and UTI. There was some concern for MS flare at the outside hospital and he was reportedly given high dose steroids. Today he can tell me the place and city, but still has trouble with year and month. He has some mild LUE and LLE weakness but no reflex asymmetry or hyperreflexia. Unclear basis of MS diagnosis, but difficulty walking and altered mental status could also correlate with ongoing infectious issues. Recommend MRI brain without and with contrast if possible (but has CKD). Does not need current immunosuppression in hospital dawit in light of recent steroid dosing and infectious issues. Can follow up with our outpatient MS specialist Dr. Fajardo in clinic for clarification of MS diagnosis and treatment going forward. /rosette/ SISSY BASHIR Signed: 09/04/2024 12:48 SARA BECERRIL-CDD [facility] Sep 06, 2024 08:29 AM NURSING INPATIENT NOTE: LOCAL TITLE: [facility] NURSING FREQUENT DOCUMENTATION STANDARD TITLE: NURSING INPATIENT NOTE DATE OF NOTE: SEP 06, 2024@08:29 ENTRY DATE: SEP 06, 2024@08:29:12 AUTHOR: AMANDA SANCHEZ: URGENCY: STATUS: COMPLETED Version 2.4 Charting in accordance with [place] APPROVED [place] STANDARD (ARAES) ACUTE INPATIENT/REHABILITATION NURSING ADMISSION SCREENING, ASSESSMENT, AND STANDARDS OF CARE ====== NATIONAL EARLY WARNING SCORE (NEWS) ====== The following vital measurements were used to complete the NEWS. Measurement DT TEMP PULSE RESP BP POx F(C) (L/MIN)(%) 09/06/2024 08:23 97.3(36.3) 74 20 108/57 92 The NEWS total is 3. 1. Temperature (C/F): Score = 0 36.1 - 38.0 C (96.9 - 100.4 F) 2. Pulse: Score = 0 51-90 3. Respirations: Score = 0 12-20 4. Blood Pressure (Only Systolic BP, mmHg): Score = 1 101-110 5. Pulse Oximetry: Score = 2 92% - 93% 6. Supplemental oxygen in use: Score = 0 No 7. AVPU: Score = 0 Alert /rosette/ AMANDA SANCHEZ Registered Nurse Signed: 09/06/2024 08:29 AMANDA SANCHEZ [facility] Sep 06, 2024 08:27 AM NURSING E & M NOTE: LOCAL TITLE: NURSING 24 HOUR ORDER VERIFICATION NOTE STANDARD TITLE: NURSING E & M NOTE DATE OF NOTE: SEP 06, 2024@08:27 ENTRY DATE: SEP 06, 2024@08:27:54 AUTHOR: AMANDA SANCHEZ EXP COSIGNER: URGENCY: STATUS: COMPLETED Electronic and hard copy review for orders was completed. Life Sustaining Treatment Orders Cohort: Reminder Term: VA-LIFE SUSTAINING TREATMENT ORDERABLE ITEMS Orderable Item: LST DNR - DO NOT RESUSCITATE 09/05/2024@14:28 Status: active, Start date: 09/05/2024@14:28, Stop date: missing Duration: 1 D Orderable Item: LST NO INVASIVE MECHANICAL VENTILATION 09/05/2024@14:28 Status: active, Start date: 09/05/2024@14:28, Stop date: missing Duration: 1 D LST Note Verified /rosette/ AMANDA SANCHEZ Registered Nurse Signed: 09/06/2024 08:28 AMANDA SANCHEZSav [facility] Sep 06, 2024 07:03 AM NURSING INTAKE & OUTPUT NOTE: LOCAL TITLE: NURSING INTAKE & OUTPUT NTOD STANDARD TITLE: NURSING INTAKE & OUTPUT NOTE DATE OF NOTE: SEP 06, 2024@07:03 ENTRY DATE: SEP 06, 2024@07:03:32 AUTHOR: AILYN CHAUDHARI EXP COSIGNER: URGENCY: STATUS: COMPLETED Shift Totals: START TIME: Aug@18:00 STOP TIME: Aug@06:00 INTAKE PO Fluids: 300 ml OUTPUT Urine: 290 ml Total INTAKE: 300 ml Total OUTPUT: 290 ml Unmeasured OUTPUT Stool x0 Date of Last Bowel Movement: Tung 14,2025 * If it has been more than 3 days since the patients last bowel movement please contact the provider. Comments: Vet has very Poor intake and output. STOP TIME: Aug@06:00 SVS - Weight Measurement DT WEIGHT LB(KG)[BMI] 09/05/2024 06:46 216(97.98)[32*] /rosette/ AILYN CHAUDHARI RN Signed: 09/06/2024 07:05 AILYN CHAUDHARI-MALKA [facility] Sep 06, 2024 04:43 AM NURSING INPATIENT NOTE: LOCAL TITLE: [facility] NURSING FREQUENT DOCUMENTATION STANDARD TITLE: NURSING INPATIENT NOTE DATE OF NOTE: SEP 06, 2024@04:43 ENTRY DATE: SEP 06, 2024@04:44:01 AUTHOR: AILYN CHAUDHARI EXP COSIGNER: URGENCY: STATUS: COMPLETED Version 2.4 Charting in accordance with [place] APPROVED [place] STANDARD (ARAES) ACUTE INPATIENT/REHABILITATION NURSING ADMISSION SCREENING, ASSESSMENT, AND STANDARDS OF CARE ====== NATIONAL EARLY WARNING SCORE (NEWS) ====== The following vital measurements were used to complete the NEWS. Measurement DT TEMP PULSE RESP BP POx F(C) (L/MIN)(%) 09/06/2024 04:28 97.5(36.4) 72 16 119/70 96 The NEWS total is 2. 1. Temperature (C/F): Score = 0 36.1 - 38.0 C (96.9 - 100.4 F) 2. Pulse: Score = 0 51-90 3. Respirations: Score = 0 12-20 4. Blood Pressure (Only Systolic BP, mmHg): Score = 0 111-219 5. Pulse Oximetry: Score = 0 96% or greater 6. Supplemental oxygen in use: Score = 2 Yes 7. AVPU: Score = 0 Alert Patient Status: Remains on unit /es/ AILYN CHAUDHARI RN Signed: 09/06/2024 04:44 AILYN CHAUDHARIINGTON-CDD [facility] Sep 06, 2024 03:45 AM NURSING INPATIENT NOTE: LOCAL TITLE: ARAES ACUTE INPATIENT NSG SHIFT ASSESSMENT STANDARD TITLE: NURSING INPATIENT NOTE DATE OF NOTE: SEP 06, 2024@03:45 ENTRY DATE: SEP 06, 2024@03:45:58 AUTHOR: AILYN CHAUDHARI EXP COSIGNER: URGENCY: STATUS: COMPLETED Version 2.2 Charting in accordance with [place] APPROVED [place] STANDARD (ARAES) ACUTE INPATIENT/REHABILITATION NURSING ADMISSION SCREENING, ASSESSMENT, AND STANDARDS OF CARE ====== REASSESSMENT ====== ====== PAIN ASSESSMENT ====== Patient's acceptable pain goal: 0 No pain Are you currently experiencing pain? No: Pain Score: 0 ====== NEUROLOGICAL ====== Neurological Orientation: Person Place Situation Level of Consciousness (AVPU): Alert = Appears aware of and responsive to the environment on their own. Follows commands, opens eyes spontaneously, and tracks objects. 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 Peripheral Pulses: All 4 extremities, 3+ normal. Edema: Present Pitting Location: BLE Measurement: 2+ Slight indentation. 15 seconds to rebound. ====== RESPIRATORY ====== Respirations: Unlabored Pattern: Regular Breath Sounds Auscultated: Anterior only Right Upper Lobe: Diminished Left Upper Lobe: Diminished Right Middle Lobe: Diminished Right Lower Lobe: Diminished Left Lower Lobe: Diminished Supplemental Oxygen Therapy: Flow rate (liters/min): 1 Method: Nasal cannula ====== GASTROINTESTINAL ====== Abdominal Description: Rounded Protuberant (central obesity) Palpation: Soft, Non-tender Bowel Sounds: RUQ: Active LUQ: Active RLQ: Active LLQ: Active ====== GENITOURINARY ====== Urinary Catheter: Type: External Male Device: Other device: pure wick ===== INTEGUMENTARY/SKIN/WOUND - (INCLUDING CHICHI) SEE NOTE: VAAES SKIN INPECTION/ASSESSMENT ===== /es/ AILYN CHAUDHARI RN Signed: 09/06/2024 03:51 AILYN CHAUDHARI [place]-CDD [facility] Sep 05, 2024 11:05 PM NURSING INPATIENT NOTE: LOCAL TITLE: VAAES ACUTE INPATIENT NSG SHIFT ASSESSMENT STANDARD TITLE: NURSING INPATIENT NOTE DATE OF NOTE: SEP 05, 2024@23:05 ENTRY DATE: SEP 05, 2024@23:07:30 AUTHOR: AILYN CHAUDHARI EXP COSIGNER: URGENCY: STATUS: COMPLETED Version 2.2 Charting in accordance with [place] APPROVED [place] STANDARD (VAAES) ACUTE INPATIENT/REHABILITATION NURSING ADMISSION SCREENING, ASSESSMENT, AND STANDARDS OF CARE ====== ASSESSMENT ====== ====== HANDOFF ====== Bedside report and handoff completed Safety check completed ====== PAIN ASSESSMENT ====== Patient's acceptable pain goal: 0 No pain Are you currently experiencing pain? No: Pain Score: 0 ====== ALMAAZN FALL SCALE & TIPS PROGRAM ====== Almazan Fall Scale: The Almazan Fall scale was performed and score was 80. This is indicative of high risk for falls. History of falling: immediate or within 3 months? Yes Secondary diagnosis: Yes Ambulatory aid: None/bedrest/nurse assist Intravenous therapy/Heparin lock: Yes Gait/Transferring: Impaired Mental Status: Oriented to own ability/knows own limitations Fall Tailoring Interventions for Patient Safety (TIPS) Fall TIPS initiated with patient: Yes Interventions: Communicate recent fall or risk of harm Assistance out of bed: Call for assistance before getting out of bed Fall TIPS reviewed with patient: Yes Interventions: Communicate recent fall or risk of harm Assistance out of bed: Call for assistance before getting out of bed ====== ENVIRONMENTAL SAFETY MANAGEMENT ====== Implemented safety standards of care: -[place] to unit & environment -Adequate room lighting -Bed in low and locked position -Call light within reach -Personal items within reach -Traffic path in room free of clutter -Non-slip footwear -Upper/half length side rails up for bed mobility -Sensory aids within reach -Encourage patient to utilize sensory support Additional safety measures: Close to nurses station Increased frequency of rounding ====== NEUROLOGICAL ====== Neurological Orientation: Person Place Situation Level of Consciousness (AVPU): Alert = Appears aware of and responsive to the environment on their own. Follows commands, opens eyes spontaneously, and tracks objects. 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 Peripheral Pulses: All 4 extremities, 3+ normal. Edema: Present Pitting Location: BLE Measurement: 2+ Slight indentation. 15 seconds to rebound. ====== RESPIRATORY ====== Respirations: Unlabored Pattern: Regular Breath Sounds Auscultated: Anterior only Right Upper Lobe: Diminished Left Upper Lobe: Diminished Right Middle Lobe: Diminished Right Lower Lobe: Diminished Left Lower Lobe: Diminished Supplemental Oxygen Therapy: Flow rate (liters/min): 1 Method: Nasal cannula ====== GASTROINTESTINAL ====== Abdominal Description: Rounded Protuberant (central obesity) Palpation: Soft, Non-tender Bowel Sounds: RUQ: Active LUQ: Active RLQ: Active LLQ: Active ====== GENITOURINARY ====== Urinary Catheter: Type: External Male Device: Other device: pure wick ===== INTEGUMENTARY/SKIN/WOUND - (INCLUDING CHICHI) SEE NOTE: VAAES SKIN INPECTION/ASSESSMENT ===== ===== INTEGUMENTARY/SKIN/WOUND - (INCLUDING CHICHI) ===== Assessment Type: SKIN REINSPECTION/REASSESSMENT SKIN INSPECTION: Skin Color: Usual for ethnicity Skin Temperature: Warm Skin Moisture: Normal Skin Turgor: Elastic (normal/immediate) Chichi Skin Assessment: The patient's Chichi Scale Score is 11. The patient is at high risk for development of pressure ulcers/injuries. Sensory perception -- ability to respond meaningfully to pressure- related discomfort Very limited. Moisture -- degree to which skin is exposed to moisture Very moist. Activity -- ability to change and control body position Bedfast. Mobility -- ability to change and control body position Very limited. Nutrition -- usual food intake patterns Probably inadequate. Friction and shear Potential problem. INTERVENTIONS: No change in previous interventions as listed below Pressure Ulcer-Education 09/03/2024 Educate Importance Of Changing Position Education Materials On Ulcer Prevention Provide Education On Cause/Prevention Provide Education Regarding Tx Plan Pressure Ulcer-Friction/Shear 09/03/2024 Elevate Head of Bed For Meals Head of Bed Below 30 Degrees When Not Eating Use Bed Trapeze Or Pull Sheet When Head of Bed Elevated Raise Knee Pressure Ulcer-Moisture 09/03/2024 Condom Catheter Instruct Pt/Family To Request Assistance Maintain Clean Dry Skin Protective Barrier Ointment Pressure Ulcer-Nutrition 09/03/2024 Encourage Eating And Assist With Meals Monitor Fluid/Food Intake Offer Liquids Q2H When Turning Offer Ordered Supplements Provide/Encourage Oral Care As Needed Tray Set Up And Assistance Pressure Ulcer-Pressure Reducing 09/03/2024 Frequent Position Changes Heel/Elbow Pads Turn And Reposition Q2H Turn To Side Less Than 30 Degrees Pressure Ulcer-Remobilize 09/03/2024 Encourage Activity As Tolerated Rom Exercises RISK FACTORS THAT INCREASE RISK FOR DEVELOPING PRESSURE INJURIES: The patient/resident has the following: Age over 75 History of previous or current pressure ulcer/injury Device(s): (nasogastric tubes, oxygen tubing, urinary catheters, cell phone etc.) Comment: PIV, Nasal Canula SKIN ALTERATIONS: Pressure Ulcer/Injury Documentation from the past year: Pressure Ulcer Stage 09/04/2024 Stage II Sacrum/coccyx 09/04/2024 Stage II Sacrum/coccyx SKIN ALTERATIONS: Wound Documentation from the past year: No data available for: Skin Integrity - Wound Skin Integrity - Wound Second Skin Integrity - Wound Third Skin Integrity - Wound Fourth Skin Integrity - Wound Fifth Skin Integrity - Wound Additional Pressure Ulcer/Injury: Stage 2: Location(s): Sacrum/coccyx No Edema Wound drainage none. ====== ACTIVITIES OF DAILY LIVING ====== Hygiene ADLs: Oral Care: Non-ventilator patient: Patient dentures/partial plates cleaned: With assistance The Wilsey was educated that poor oral hygiene increases the risk of hospital acquired pneumonia and dental problems like gingivitis and tooth decay. was educated using their preferred method and verbalized understanding. ====== MOBILITY ====== Mobility Status: Total assist: Unable to sit up independently at the side of bed Gait: Unable to ambulate ====== IV LINES ====== Peripheral IV: Line #1: Assessment: Location: Right, Antecubital Gauge: 20 Dressing Condition: Clean, dry, intact Site Condition: No redness, swelling, pain Line Status: Capped Flushed ====== PSYCHOSOCIAL ====== Type of Emotional Support Provided: 1:1 discussion, Hospitalization discussion, Treatment discussion, Ventilation of feelings daniel /es/ AILYN CHAUDHARI RN Signed: 09/05/2024 23:15 AILYN CHAUDHARI-VUD [facility] Sep 05, 2024 09:34 PM NURSING INPATIENT NOTE: LOCAL TITLE: [facility] NURSING FREQUENT DOCUMENTATION STANDARD TITLE: NURSING INPATIENT NOTE DATE OF NOTE: SEP 05, 2024@21:34 ENTRY DATE: SEP 05, 2024@21:34:58 AUTHOR: AILYN CHAUDHARI EXP COSIGNER: URGENCY: STATUS: COMPLETED Version 2.4 Charting in accordance with [place] APPROVED [place] STANDARD (ARAES) ACUTE INPATIENT/REHABILITATION NURSING ADMISSION SCREENING, ASSESSMENT, AND STANDARDS OF CARE ====== NATIONAL EARLY WARNING SCORE (NEWS) ====== The following vital measurements were used to complete the NEWS. Measurement DT TEMP PULSE RESP BP POx F(C) (L/MIN)(%) 09/05/2024 20:46 98.0(36.7) 72 18 145/67 96 The NEWS total is 2. 1. Temperature (C/F): Score = 0 36.1 - 38.0 C (96.9 - 100.4 F) 2. Pulse: Score = 0 51-90 3. Respirations: Score = 0 12-20 4. Blood Pressure (Only Systolic BP, mmHg): Score = 0 111-219 5. Pulse Oximetry: Score = 0 96% or greater 6. Supplemental oxygen in use: Score = 2 Yes 7. AVPU: Score = 0 Alert Patient Status: Remains on unit /rosette/ AILYN CHAUDHARI RN Signed: 09/05/2024 21:35 AILYN CHAUDHARI [facility] Sep 05, 2024 08:27 PM NURSING E & M NOTE: LOCAL TITLE: NURSING 24 HOUR ORDER VERIFICATION NOTE STANDARD TITLE: NURSING E & M NOTE DATE OF NOTE: SEP 05, 2024@20:27 ENTRY DATE: SEP 05, 2024@20:27:22 AUTHOR: AILYN CHAUDHARI EXP COSIGNER: URGENCY: STATUS: COMPLETED Electronic and hard copy review for orders was completed. Life Sustaining Treatment Orders Cohort: Reminder Term: VA-LIFE SUSTAINING TREATMENT ORDERABLE ITEMS Orderable Item: LST DNR - DO NOT RESUSCITATE 09/05/2024@14:28 Status: active, Start date: 09/05/2024@14:28, Stop date: missing Duration: 0 D Orderable Item: LST NO INVASIVE MECHANICAL VENTILATION 09/05/2024@14:28 Status: active, Start date: 09/05/2024@14:28, Stop date: missing Duration: 0 D LST Note Verified /rosette/ AILYN CHAUDHARI RN Signed: 09/05/2024 20:28 AILYN CHAUDHARI [facility] Sep 05, 2024 02:23 PM LIFE-SUSTAINING TREATMENT PLAN: LOCAL TITLE: LIFE-SUSTAINING TREATMENT STANDARD TITLE: LIFE-SUSTAINING TREATMENT PLAN DATE OF NOTE: SEP 05, 2024@14:23 ENTRY DATE: SEP 05, 2024@14:23:48 AUTHOR: FRANCK TURNER EXP COSIGNER: PINKY NGUYEN URGENCY: STATUS: COMPLETED LIFE-SUSTAINING TREATMENT (LST) DECISION-MAKING CAPACITY TO MAKE DECISIONS ABOUT LIFE_SUSTAINING TREATMENTS Patient has capacity to make decisions about LSTs. HEALTH CARE SURROGATE'S NAME AND CONTACT INFORMATION Next of kin: Spouse Name and Contact Information: PATRICIA CHUNG PATIENT'S (OR SURROGATE'S) UNDERSTANDING OF PATIENT'S HEALTH Spouse and patient understand MS diagnosis, current debilitated state and viral pneumonia. 'S VALUES AND GOALS OF CARE - Goals as reported by the patient (or surrogate): When asked if he would want CPR replies No I don't want that when asked if if is okay with ventilation support like CPAP or BIPAP replies Yes a mask is okay but I don't want a breathing tube when asked whether he would want to be placed on a ventilator he answers in the negative. LIFE-SUSTAINING TREATMENT PLAN * In the event of cardiopulmonary arrest: DNAR/DNR: Do not attempt CPR. Other Life-Sustaining Treatments: Mechanical Ventilation - In the event of respiratory distress or failure when the patient HAS A PULSE, the patient: Does NOT want invasive mechanical ventilation (e.g., via endotracheal or tracheostomy tube). INFORMED CONSENT Patient gave oral informed consent for life-sustaining treatment plan. STATE-AUTHORIZED PORTABLE ORDERS (SAM) not discussed PRESENT FOR GOALS OF CARE CONVERSATION Name(s) and contact information: and his spouse; Franck Turner MD NAME OF SUPERVISING PRACTITIONER Attending/supervising practitioner: PINKY NGUYEN MD Time spent discussing and documenting this care planning activity. Up to 30 minutes /rosette/ FRANCK TURNER PGY1 Signed: 09/05/2024 14:28 /rosette/ PINKY NGUYEN HOSPITALIST Cosigned: 09/06/2024 07:59 [facility] Sep 05, 2024 02:03 PM INTERNAL MEDICINE NOTE: LOCAL TITLE: MEDICINE SOAP NOTE STANDARD TITLE: INTERNAL MEDICINE NOTE DATE OF NOTE: SEP 05, 2024@14:03 ENTRY DATE: SEP 05, 2024@14:03:21 AUTHOR: FRANCK TURNER COSIGNER: PINKY NGUYEN URGENCY: STATUS: COMPLETED Overnight:NAEO SUBJECTIVE: is sleeping on my arrival, he is easily awakened and interactive. He is not oriented to place or time and is frustrated by this. is at bedside. Denies pain at present although has expressed discomfort to bedside RN. ROS: Reviewed and negative unless noted otherwise above. OBJECTIVE: VITALS: Tc: 97.4 F [36.3 C] (09/05/2024 07:58) HR: 71 (09/05/2024 10:53) RR: 17 (09/05/2024 07:58) BP: 134/70 (09/05/2024 07:58) SpO2: SEP 05, 2024@10:53 -- PULSE OXIMETRY: 94 (with supplemental O2 1.0 l/min % via NASAL CANNULA) PHYSICAL EXAM: GENERAL : lying in bed, in NAD. is at bedside. HEENT: anicteric sclera, moist mucus membranes. CVS : RRR w/ normal S1 and S2. +1 peripheral edema to LE bilaterally. PULM : Normal work of breathing on 1L NC. Lungs with mild basilar crackles, poor effort. GI : +BS, soft, nontender, nondistended. MSK : No joint swelling or deformity. NEURO : CN II-XII grossly intact, AAO x3. No focal deficits. Moves all extremities spontaneously. PSYCH : mood & affect appropriate. MEDS: Active Inpatient Medications (including Supplies): Active Inpatient Medications Status 1) ACETAMINOPHEN TAB 975MG PO TID ACTIVE Indication: FOR PAIN/FEVER 2) ASPIRIN TAB,EC 81MG PO DAILY ACTIVE Indication: FOR HEART 3) ATORVASTATIN TAB 20MG PO QHS ACTIVE Indication: FOR CHOLESTEROL 4) BISOPROLOL TAB 5MG PO DAILY ACTIVE Indication: FOR BLOOD PRESSURE/HEART 5) DEXTROSE 15GM/32ML PKT GEL,ORAL 1 PACKET (15GM) PO Q15MIN ACTIVE PRN Give one tube (15gm) for BG 51-70mg/dl. Perform fingerstick 15 minutes after treatment; notify treating provider. Indication: FOR LOW BLOOD SUGAR 6) DEXTROSE 15GM/32ML PKT GEL,ORAL 2 PACKETS (30GM) PO Q15MIN ACTIVE PRN Give two tubes (30g) for BG 50 mg/dL and below. Perform fingerstick 15 minutes after treatment; notify treating provider. Indication: FOR LOW BLOOD SUGAR 7) DEXTROSE 50% INJ,SOLN 25ML (1/2 AMP/SYRINGE) IV Q15MIN PRN ACTIVE Give 50% dextrose 25 mL IV (over 3 min) STAT for BG of 51 - 70 mg/dL or NPO. Perform fingerstick 15 minutes after treatment; notify treating provider. Indication: FOR LOW BLOOD SUGAR 8) DEXTROSE 50% INJ,SOLN 50ML (1 AMP/SYRINGE) IV Q15MIN PRN ACTIVE Give 50% dextrose 50 mL IV (over 3 min) STAT for BG of 50 mg/dL and below or unresponsive or NPO. Perform fingerstick 15 minutes after treatment; notify treating provider. Indication: FOR LOW BLOOD SUGAR 9) DICLOFENAC NA 1% GEL,TOP 2 GRAM STRIP TOP Q6H PRN ACTIVE Indication: FOR PAIN 10) ENOXAPARIN (LMW HEPARIN) INJ 40MG/0.4ML SQ Q24H Instructions ACTIVE too long. See order details for full text. Indication: TO THIN BLOOD 11) FAMOTIDINE (famOTidine) TAB 20MG PO BID PRN ACTIVE Indication: FOR STOMACH 12) GABAPENTIN CAP,ORAL 200MG PO TID ACTIVE Indication: FOR NERVE PAIN 13) GLUCAGON INJ 1MG/1ML SC Q15MIN PRN Instructions too long. ACTIVE See order details for full text. Indication: FOR LOW BLOOD SUGAR 14) INSULIN ASPART (NOVOLOG) INJ CORRECTION DOSE:SEE COMMENTS SQ ACTIVE AT MEAL END Give after pt fed WITH scheduled meal/prandial insulin(if ordered) If premeal FSBS 131-180=1 unit; 181-230=2 unit; 231-280=3 unit; 281-330=4 unit; >330=5 unit. DO NOT HOLD for NPO. Indication: FOR BLOOD SUGAR 15) LISINOPRIL TAB 5MG PO DAILY ACTIVE Indication: FOR HIGH BLOOD PRESSURE 16) MELATONIN 3MG CAP/TAB 6MG PO QHS PRN ACTIVE Indication: FOR SLEEP 17) METHENAMINE HIPPURATE TAB 1GM PO BID DURATION: Continuation ACTIVE of chronic home therapy Indication: TO PREVENT URINARY TRACT INFECTION 18) PRESERVISION AREDS 2 (NON-SMOKER) CAP/ 1 SOFTGEL PO BID PC ACTIVE Indication: FOR EYE HEALTH 19) TAMSULOSIN (FLOMAX) CAP,ORAL 0.4MG PO QPM ACTIVE Indication: FOR PROSTATE DATA: WBC: 6.9 K/cmm (09/03/2024 05:00) H HCT: 0 PLT: 0 MCV: 83.6 fL (09/03/2024 05:00) RDW: 14.8 % (09/03/2024 05:00) INR: ____ PTT: ____ SODIUM: 128 mmol/L L (09/04/2024 05:00) POTASSIUM: 3.9 mmol/L (09/04/2024 05:00) CHLORIDE: 99 mmol/L (09/04/2024 05:00) CO2: 21 mmol/L L (09/04/2024 05:00) BUN: 13 mg/dL (09/04/2024 05:00) CREATININE: Collection DT Specimen Test Name Result Units Ref Range 09/04/2024 05:00 PLASMA!! CREATININE 0.75 mg/dL 0.72 - 1.25 !! Indicates COMMENTS AVAILABLE...Refer to Interim Lab Report. CALCIUM: 8.0 mg/dL L (09/04/2024 05:00) ANION GAP: 8.0 mEq/L (09/04/2024 05:00) AST: 11 U/L (08/29/2024 20:32) ALT: 15 U/L (08/29/2024 20:32) ALK PHOS: 97 U/L (08/29/2024 20:32) BILIRUBIN: ALBUMIN: 2.9 g/dL L (08/29/2024 20:32) PROTEIN: 5.9 g/dL L (08/29/2024 20:32) HgA1C: Collection DT Specimen Test Name Result Units Ref Range 09/03/2024 05:00 BLOOD HGB 9.5 L g/dL 14.0 - 18.0 IMAGING: 79M with PMH COPD presents for chronic weakness, new oxygen requirement after IV fluids 24h prior. #Viral PNA d/t human rhinovirus -Resp PCR + PLAN: -Supportive care -No longer requiring supp O2 -Eleanor tylenol for myalgias #Weakness, multifactorial -TTE with EF 60-60%, HFpEF score 50-75% likely, cannot accurately calculate given no PA pressure estimate - UA not indicative of acute infection -CXR (09/03): no fluid overload, bibasilar r>l opacities -BNP >1600 -Note: additional history from spouse indicates at baseline could ambulate 20 steps 4-5 x/day to bathroom with a walker, was mostly sedentary in recliner. 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 -Etiology is most likely debility, with contribution of suspected new heart failure with preserved EF after 3L of fluids, less likely infectious causes given normal WBC and afebrile, less likely acute MS flare given baseline neuro exam PLAN: -Strict I/O -BCx NGTD -Speech eval for suspected chronic aspiration -PT/OT -Lab holiday 09/06 #Multiple sclerosis -Imaging: CT head 08/29/24: Periventricular decreased attenuation likely sequelae of remote ischemic small-vessel disease. -Receives outpatient Ocrelizumab infusions for MS PLAN: -Neurology consult, appreciate recs -Ordered MRI head and c-spine w/wo #Type II diabetes mellitus c/b neuropathy -On metformin at home -A1c 5.6 09/03 PLAN: -Hold metformin -Gabapentin tab 200mg TID for neuropathy -CF SSI and Accu-Chek's CHRONIC MEDICAL CONDITIONS: GERD: home famotidine 20mg tab twice a day as needed Prostate cancer: receives leuprolide (eligard) 45mg(6 month)LA inj as outpatient, on home silodosin 8mg oral cap daily will convert to tamsulosin 0.8mg daily, methenamine Hippurate 1gm tab twice a day for UTI px CAD: aspirin 81mg chew tab daily HLD: atorvastatin calcium tab 20mg at bedtime HTN: bisoprolol fumarate 5mg tab daily, lisinopril 5mg daily FEN/DVT Ppx: F- PO E- Monitor and replete N- Carb 2 DVT Ppx: Prophylactic lovenox Code Status: DNR/DNI Dispo: Acute Franck Turner MD PGY1 Internal Medicine Pager: [phone] /rosette/ FRANCK TURNER PGY1 Signed: 09/05/2024 14:22 /rosette/ PINKY NGUYEN HOSPITALIST Cosigned: 09/06/2024 07:59 FRANCK TURNER [facility] Sep 05, 2024 01:27 PM INTERNAL MEDICINE ATTENDING NOTE: LOCAL TITLE: MEDICINE ATTENDING PHYSICIAN NOTE STANDARD TITLE: INTERNAL MEDICINE ATTENDING NOTE DATE OF NOTE: SEP 05, 2024@13:27 ENTRY DATE: SEP 05, 2024@13:27:55 AUTHOR: PINKY NGUYEN EXP COSIGNER: URGENCY: STATUS: COMPLETED I have seen and examined pt and discussed plan of care with resident and participated in talbot decision making and agree with plan. TEMP: 97.4 F [36.3 C] (09/05/2024 07:58) PULSE: 71 (09/05/2024 10:53) BP: 134/70 (09/05/2024 07:58) SAT: SEP 05, 2024@10:53 -- PULSE OXIMETRY: 94 (with supplemental O2 1.0 l/min % via NASAL CANNULA) WT: 216 lb [97.98 kg] (09/05/2024 06:46) ASSESSMENT/PLAN: - mild acute diastolic HF- resolved with diuresis prior to arrival to [place]. IVC diameter is not consistent with volume overload any more on TTE. cont home Bisoprolol and lisinopril. will add PRN lasix for 3 lbs weight gain or SOA if weight monitoring beocmes challenging due ot mobility issues. - new hypoxic resp failure- resolved. - acute viral PNA with Human rhinovirus- suportive care - acute on chronic hyponatremia- BL Na is around 133. stable at 129 here. 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 - delirium- due to recent illness at OSH, rehab and recurrent admission here. seems to be mild. cont delirium precautions. likely a component of dementia. - possible MS flare- unlikely given + viral illness. MRI brain adn C-spine ordered per neuro for further assessment. - chronic hypoalbuminemia- likely related to chronic poor appetite, ADFTT. this seems ot have worsened during this acute illness. will consider palliative care consult on friday. - chori cdebility/ADFTT- PT/OT consulted. 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 CHRONIC MEDICAL PROBLEMS: - Multiple Sclerosis- w/u as above. - h/o Prostate cancer - GERD- Famotidine, - HTN- cont home lisinopril and Bisoprolol - HLD- lipitor 20 mg at night - COPD- does not appear to be in exacerbation.cont DUONEBS per rehab - H/o UTIs- acute UTI is ruled out. cont home Methanamine Hipurate - constipation- cont home Miralax - DM2- A1C 5.6%, holding home metformin for now. agree with SSI - vitamin E and D deficiency- canc cont replacement - BPH- cont home Flomax - recent bacterial PNA- completed abx w levaquin 09/02. DVT PPX- Lovenox FULL CODE DISPOSITION: pending PT/OT assessment and furher discussion with family. 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 /rosette/ PINKY NGUYEN HOSPITALIST Signed: 09/05/2024 13:33 PINKY NGUYENCDD [facility] Sep 05, 2024 09:04 AM NURSING E & M NOTE: LOCAL TITLE: NURSING 24 HOUR ORDER VERIFICATION NOTE STANDARD TITLE: NURSING E & M NOTE DATE OF NOTE: SEP 05, 2024@09:04 ENTRY DATE: SEP 05, 2024@09:04:10 AUTHOR: J LUIS CERON EXP COSIGNER: URGENCY: STATUS: COMPLETED Electronic and hard copy review for orders was completed. Life Sustaining Treatment Orders LST Note Verified Comments: FULL CODE /rosette/ JOSELITO Loza, acrylic fabricator RN Signed: 09/05/2024 09:04 J LUIS CERON [facility] Sep 05, 2024 09:04 AM NURSING INPATIENT NOTE: LOCAL TITLE: [facility] NURSING FREQUENT DOCUMENTATION STANDARD TITLE: NURSING INPATIENT NOTE DATE OF NOTE: SEP 05, 2024@09:04 ENTRY DATE: SEP 05, 2024@09:04:37 AUTHOR: J LUIS CERON EXP COSIGNER: URGENCY: STATUS: COMPLETED Version 2.4 Charting in accordance with [place] APPROVED [place] STANDARD (ARAES) ACUTE INPATIENT/REHABILITATION NURSING ADMISSION SCREENING, ASSESSMENT, AND STANDARDS OF CARE ====== NATIONAL EARLY WARNING SCORE (NEWS) ====== The following vital measurements were used to complete the NEWS. Measurement DT TEMP PULSE RESP BP POx F(C) (L/MIN)(%) 09/05/2024 07:58 97.4(36.3) 81 17 134/70 93[1.0][] The NEWS total is 4. 1. Temperature (C/F): Score = 0 36.1 - 38.0 C (96.9 - 100.4 F) 2. Pulse: Score = 0 51-90 3. Respirations: Score = 0 12-20 4. Blood Pressure (Only Systolic BP, mmHg): Score = 0 111-219 5. Pulse Oximetry: Score = 2 92% - 93% 6. Supplemental oxygen in use: Score = 2 Yes 7. AVPU: Score = 0 Alert Patient Status: Remains on unit /rosette/ JOSELITO Loza, acrylic fabricator RN Signed: 09/05/2024 09:05 J LUIS CERON-CDD [facility] Sep 05, 2024 08:30 AM NURSING INPATIENT NOTE: LOCAL TITLE: [facility] ACUTE INPATIENT NSG SHIFT ASSESSMENT STANDARD TITLE: NURSING INPATIENT NOTE DATE OF NOTE: SEP 05, 2024@08:30 ENTRY DATE: SEP 05, 2024@15:57:39 AUTHOR: J LUIS CERON EXP COSIGNER: URGENCY: STATUS: COMPLETED Version 2.2 Charting in accordance with [place] APPROVED [place] STANDARD (ARAES) ACUTE INPATIENT/REHABILITATION NURSING ADMISSION SCREENING, ASSESSMENT, AND STANDARDS OF CARE ====== ASSESSMENT ====== ====== HANDOFF ====== Bedside report and handoff completed Safety check completed ====== PAIN ASSESSMENT ====== Patient's acceptable pain goal: 0 No pain Are you currently experiencing pain? No: ====== ALMAZAN FALL SCALE & TIPS PROGRAM ====== Almazan Fall Scale: The Almazan Fall scale was performed and score was 80. This is indicative of high risk for falls. History of falling: immediate or within 3 months? Yes Secondary diagnosis: Yes Ambulatory aid: None/bedrest/nurse assist Intravenous therapy/Heparin lock: Yes Gait/Transferring: Impaired Mental Status: Oriented to own ability/knows own limitations Fall Tailoring Interventions for Patient Safety (TIPS) Fall TIPS reviewed with patient: Yes Interventions: Communicate recent fall or risk of harm Bed/Chair Alarm on ====== ENVIRONMENTAL SAFETY MANAGEMENT ====== Implemented safety standards of care: -[place] to unit & environment -Adequate room lighting -Bed in low and locked position -Call light within reach -Personal items within reach -Traffic path in room free of clutter -Non-slip footwear -Upper/half length side rails up for bed mobility -Sensory aids within reach -Encourage patient to utilize sensory support Additional safety measures: Alarms: Bed Caregiver/family in attendance Close to nurses station Increased frequency of rounding ====== NEUROLOGICAL ====== Neurological Orientation: Person Situation Level of Consciousness (AVPU): Alert = Appears aware of and responsive to the environment on their own. Follows commands, opens eyes spontaneously, and tracks objects. 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 Operator Chief Bilateral: Moderate Upper Extremity Bilateral: Moves against some resistance Lower Extremity Bilateral: Moves against gravity Sensation: Upper Extremity Sensation Bilateral: Intact Lower Extremity Sensation Bilateral: Intact Temperature: Upper Extremity Temperature Bilateral: Warm Lower Extremity Temperature Bilateral: Warm ====== CARDIOVASCULAR ====== Heart Sounds: Normal (S1S2) Heart Rate/Rhythm (without logging tractor operator swamp): Regular Capillary Refill: All 4 extremities, less than or equal to 3 seconds. Edema: Present Pitting Location: BLE Measurement: 2+ Slight indentation. 15 seconds to rebound. ====== RESPIRATORY ====== Respirations: Unlabored Pattern: Regular Breath Sounds Auscultated: Anterior only Right Upper Lobe: Diminished Left Upper Lobe: Diminished Right Middle Lobe: Diminished Right Lower Lobe: Diminished Left Lower Lobe: Diminished ====== GASTROINTESTINAL ====== Last bowel movement: 09/04/2024 Bowel movement reported by patient-unwitnessed Elimination: Incontinent Abdominal Description: Rounded Protuberant (central obesity) Palpation: Soft, Non-tender Bowel Sounds: RUQ: Active LUQ: Active RLQ: Active LLQ: Active ====== GENITOURINARY ====== Elimination: Incontinent Urinary Catheter: Type: External Male Device: Other device: male purewick attached to suction ===== INTEGUMENTARY/SKIN/WOUND - (INCLUDING CHICHI) SEE NOTE: VAAES SKIN INPECTION/ASSESSMENT ===== ===== INTEGUMENTARY/SKIN/WOUND - (INCLUDING CHICHI) ===== Assessment Type: SKIN REINSPECTION/REASSESSMENT SKIN INSPECTION: Skin Color: Usual for ethnicity Skin Temperature: Warm Skin Moisture: Dry Skin Turgor: Elastic (normal/immediate) Chichi Skin Assessment: The patient's Chichi Scale Score is 11. The patient is at high risk for development of pressure ulcers/injuries. Sensory perception -- ability to respond meaningfully to pressure-related discomfort Very limited. Moisture -- degree to which skin is exposed to moisture Very moist. Activity -- ability to change and control body position Bedfast. Mobility -- ability to change and control body position Very limited. Nutrition -- usual food intake patterns Probably inadequate. Friction and shear Potential problem. INTERVENTIONS: No change in previous interventions as listed below Pressure Ulcer-Education 09/03/2024 Educate Importance Of Changing Position Education Materials On Ulcer Prevention Provide Education On Cause/Prevention Provide Education Regarding Tx Plan Pressure Ulcer-Friction/Shear 09/03/2024 Elevate Head of Bed For Meals Head of Bed Below 30 Degrees When Not Eating Use Bed Trapeze Or Pull Sheet When Head of Bed Elevated Raise Knee Pressure Ulcer-Moisture 09/03/2024 Condom Catheter Instruct Pt/Family To Request Assistance Maintain Clean Dry Skin Protective Barrier Ointment Pressure Ulcer-Nutrition 09/03/2024 Encourage Eating And Assist With Meals Monitor Fluid/Food Intake Offer Liquids Q2H When Turning Offer Ordered Supplements Provide/Encourage Oral Care As Needed Tray Set Up And Assistance Pressure Ulcer-Pressure Reducing 09/03/2024 Frequent Position Changes Heel/Elbow Pads Turn And Reposition Q2H Turn To Side Less Than 30 Degrees Pressure Ulcer-Remobilize 09/03/2024 Encourage Activity As Tolerated Rom Exercises RISK FACTORS THAT INCREASE RISK FOR DEVELOPING PRESSURE INJURIES: The patient/resident has the following: Age over 75 History of previous or current pressure ulcer/injury Device(s): (nasogastric tubes, oxygen tubing, urinary catheters, cell phone etc.) Comment: catheter tubing SKIN ALTERATIONS: Pressure Ulcer/Injury Documentation from the past year: Pressure Ulcer Stage 09/04/2024 Stage II Sacrum/coccyx 09/03/2024 Stage II Sacrum/coccyx SKIN ALTERATIONS: Wound Documentation from the past year: No data available for: Skin Integrity - Wound Skin Integrity - Wound Second Skin Integrity - Wound Third Skin Integrity - Wound Fourth Skin Integrity - Wound Fifth Skin Integrity - Wound Additional Pressure Ulcer/Injury: Stage 2: Location(s): Sacrum/coccyx No Edema Wound drainage none. ====== ACTIVITIES OF DAILY LIVING ====== Hygiene ADLs: Dressing: Upper Body: Moderate assist Lower Body: Moderate assist Eating: Minimal assist Oral Care: Non-ventilator patient: Patient dentures/partial plates cleaned: With assistance The was educated that poor oral hygiene increases the risk of hospital acquired pneumonia and dental problems like gingivitis and tooth decay. was educated using their preferred method and verbalized understanding. Toileting: Dependent ====== MOBILITY ====== Mobility Status: Total assist: Unable to sit up independently at the side of bed PT/OT/Rehab involved in care and contributing to mobility goals: Comment: consult placed Gait: Unable to ambulate ====== IV LINES ====== Peripheral IV: Line #1: Assessment: Location: Right, Antecubital Gauge: 20 Dressing Condition: Clean, dry, intact Site Condition: No redness, swelling, pain Line Status: Capped Flushed ====== PSYCHOSOCIAL ====== Type of Emotional Support Provided: 1:1 discussion, Treatment discussion, Ventilation of feelings encouraged /rosette/ JOSELITO oLza, acrylic fabricator RN Signed: 09/05/2024 16:01 J LUIS CERON [facility] Sep 05, 2024 06:53 AM NURSING INTAKE & OUTPUT NOTE: LOCAL TITLE: NURSING INTAKE & OUTPUT NTOD STANDARD TITLE: NURSING INTAKE & OUTPUT NOTE DATE OF NOTE: SEP 05, 2024@06:53 ENTRY DATE: SEP 05, 2024@06:53:12 AUTHOR: AILYN CHAUDHARI EXP COSIGNER: URGENCY: STATUS: COMPLETED Shift Totals: START TIME: Aug@18:00 STOP TIME: Aug@06:00 INTAKE PO Fluids: 200 ml OUTPUT Urine: 300 ml Total INTAKE: 200 ml Total OUTPUT: 300 ml Unmeasured OUTPUT Stool x0 Date of Last Bowel Movement: Aug * If it has been more than 3 days since the patients last bowel movement please contact the provider. Comments: STOP TIME: Aug@06:00 SVS - Weight Measurement DT WEIGHT LB(KG)[BMI] 09/05/2024 06:46 216(97.98)[32*] /rosette/ AILYN CHAUDHARI RN Signed: 09/05/2024 06:54 AILYN CHAUDHARI [facility] Sep 05, 2024 05:19 AM NURSING INPATIENT NOTE: LOCAL TITLE: [facility] ACUTE INPATIENT NSG SHIFT ASSESSMENT STANDARD TITLE: NURSING INPATIENT NOTE DATE OF NOTE: SEP 05, 2024@05:19 ENTRY DATE: SEP 05, 2024@05:19:43 AUTHOR: AILYN CHAUDHARI EXP COSIGNER: URGENCY: STATUS: COMPLETED Version 2.2 Charting in accordance with [place] APPROVED [place] STANDARD (ARAES) ACUTE INPATIENT/REHABILITATION NURSING ADMISSION SCREENING, ASSESSMENT, AND STANDARDS OF CARE ====== REASSESSMENT ====== ====== PAIN ASSESSMENT ====== Patient's acceptable pain goal: 0 No pain Are you currently experiencing pain? No: Pain Score: 0 ====== NEUROLOGICAL ====== Neurological Orientation: Person Place Situation Level of Consciousness (AVPU): Alert = Appears aware of and responsive to the environment on their own. Follows commands, opens eyes spontaneously, and tracks objects. Affect/behavior: Cooperative Calm Masters Agitation Sedation Scale (RASS): 0 Alert and calm ====== NEUROMUSCULAR/NEUROVASCULAR EXTREMITIES ASSESSMENT ====== Strength: Telephone Operator Chief Bilateral: Moderate Upper Extremity Bilateral: Full strength Lower Extremity Bilateral: Moves against some resistance Sensation: Upper Extremity Sensation Bilateral: Intact Lower Extremity Sensation Bilateral: Intact Temperature: Upper Extremity Temperature Bilateral: Warm Lower Extremity Temperature Bilateral: Warm ====== CARDIOVASCULAR ====== Heart Sounds: Normal (S1S2) Heart Rate/Rhythm (without logging tractor operator swamp): Regular Capillary Refill: All 4 extremities, less than or equal to 3 seconds. Peripheral Pulses: All 4 extremities, 3+ normal. Edema: Present Pitting Location: BLE Measurement: 2+ Slight indentation. 15 seconds to rebound. ====== RESPIRATORY ====== Respirations: Unlabored Pattern: Regular Breath Sounds Auscultated: Anterior only Right Upper Lobe: Diminished Left Upper Lobe: Diminished Right Middle Lobe: Diminished Right Lower Lobe: Diminished Left Lower Lobe: Diminished Supplemental Oxygen Therapy: Flow rate (liters/min): 1 Method: Nasal cannula ====== GASTROINTESTINAL ====== Abdominal Description: Rounded Protuberant (central obesity) Palpation: Soft, Non-tender Bowel Sounds: RUQ: Active LUQ: Active RLQ: Active LLQ: Active ====== GENITOURINARY ====== Urinary Catheter: Type: External Male Device: Other device: Pure wick ===== INTEGUMENTARY/SKIN/WOUND - (INCLUDING CHICHI) SEE NOTE: VAAES SKIN INPECTION/ASSESSMENT ===== /es/ AILYN CHAUDHARI RN Signed: 09/05/2024 05:23 AILYN CHAUDHARI [facility] Sep 05, 2024 04:49 AM NURSING INPATIENT NOTE: LOCAL TITLE: [facility] NURSING FREQUENT DOCUMENTATION STANDARD TITLE: NURSING INPATIENT NOTE DATE OF NOTE: SEP 05, 2024@04:49 ENTRY DATE: SEP 05, 2024@04:49:34 AUTHOR: AILYN CHAUDHARI COSIGNER: URGENCY: STATUS: COMPLETED Version 2.4 Charting in accordance with [place] APPROVED [place] STANDARD (ARAES) ACUTE INPATIENT/REHABILITATION NURSING ADMISSION SCREENING, ASSESSMENT, AND STANDARDS OF CARE ====== NATIONAL EARLY WARNING SCORE (NEWS) ====== The following vital measurements were used to complete the NEWS. Measurement DT TEMP PULSE RESP BP POx F(C) (L/MIN)(%) 09/05/2024 04:35 97.7(36.5) 73 19 136/72 97[1.0][] The NEWS total is 2. 1. Temperature (C/F): Score = 0 36.1 - 38.0 C (96.9 - 100.4 F) 2. Pulse: Score = 0 51-90 3. Respirations: Score = 0 12-20 4. Blood Pressure (Only Systolic BP, mmHg): Score = 0 111-219 5. Pulse Oximetry: Score = 0 96% or greater 6. Supplemental oxygen in use: Score = 2 Yes 7. AVPU: Score = 0 Alert Patient Status: Remains on unit /es/ AILYN CHAUDHARI RN Signed: 09/05/2024 04:50 AILYN CHAUDHARI [facility] Sep 04, 2024 10:20 PM NURSING INPATIENT NOTE: LOCAL TITLE: [facility] ACUTE INPATIENT NSG SHIFT ASSESSMENT STANDARD TITLE: NURSING INPATIENT NOTE DATE OF NOTE: SEP 04, 2024@22:20 ENTRY DATE: SEP 04, 2024@22:20:37 AUTHOR: AILYN CHAUDHARIIGNER: URGENCY: STATUS: COMPLETED Version 2.2 Charting in accordance with [place] APPROVED [place] STANDARD (VAAES) ACUTE INPATIENT/REHABILITATION NURSING ADMISSION SCREENING, ASSESSMENT, AND STANDARDS OF CARE ====== ASSESSMENT ====== ====== HANDOFF ====== Bedside report and handoff completed Safety check completed ====== PAIN ASSESSMENT ====== Patient's acceptable pain goal: 0 No pain Are you currently experiencing pain? No: Pain Score: 0 ====== ALMAZAN FALL SCALE & TIPS PROGRAM ====== Almazan Fall Scale: The Almazan Fall scale was performed and score was 80. This is indicative of high risk for falls. History of falling: immediate or within 3 months? Yes Secondary diagnosis: Yes Ambulatory aid: None/bedrest/nurse assist Intravenous therapy/Heparin lock: Yes Gait/Transferring: Impaired Mental Status: Oriented to own ability/knows own limitations Fall Tailoring Interventions for Patient Safety (TIPS) Fall TIPS initiated with patient: Yes Interventions: Communicate recent fall or risk of harm Bed/Chair Alarm on Assistance out of bed: Call for assistance before getting out of bed Safe patient handling device necessary Fall TIPS reviewed with patient: Yes Interventions: Communicate recent fall or risk of harm Bed/Chair Alarm on Assistance out of bed: Call for assistance before getting out of bed ====== ENVIRONMENTAL SAFETY MANAGEMENT ====== Implemented safety standards of care: -[place] to unit & environment -Adequate room lighting -Bed in low and locked position -Call light within reach -Personal items within reach -Traffic path in room free of clutter -Non-slip footwear -Upper/half length side rails up for bed mobility -Sensory aids within reach -Encourage patient to utilize sensory support Additional safety measures: Alarms: Bed Close to nurses station Increased frequency of rounding ====== NEUROLOGICAL ====== Neurological Orientation: Person Place Situation Level of Consciousness (AVPU): Alert = Appears aware of and responsive to the environment on their own. Follows commands, opens eyes spontaneously, and tracks objects. 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 Peripheral Pulses: All 4 extremities, 3+ normal. Edema: Present Pitting Location: BLE Measurement: 2+ Slight indentation. 15 seconds to rebound. ====== RESPIRATORY ====== Respirations: Unlabored Pattern: Regular Breath Sounds Auscultated: Anterior only Right Upper Lobe: Diminished Left Upper Lobe: Diminished Right Middle Lobe: Diminished Right Lower Lobe: Diminished Left Lower Lobe: Diminished Supplemental Oxygen Therapy: Flow rate (liters/min): 1 Method: Nasal cannula ====== GASTROINTESTINAL ====== Last bowel movement: 09/04 Abdominal Description: Rounded Protuberant (central obesity) Palpation: Soft, Non-tender Bowel Sounds: RUQ: Active LUQ: Active RLQ: Active LLQ: Active ====== GENITOURINARY ====== Urinary Catheter: Type: External Male Device: Other device: Male Pure wick ===== INTEGUMENTARY/SKIN/WOUND - (INCLUDING CHICHI) SEE NOTE: VAAES SKIN INPECTION/ASSESSMENT ===== ===== INTEGUMENTARY/SKIN/WOUND - (INCLUDING CHICHI) ===== Assessment Type: SKIN REINSPECTION/REASSESSMENT SKIN INSPECTION: Skin Color: Usual for ethnicity Skin Temperature: Warm Skin Moisture: Normal Skin Turgor: Elastic (normal/immediate) Chichi Skin Assessment: The patient's Chichi Scale Score is 11. The patient is at high risk for development of pressure ulcers/injuries. Sensory perception -- ability to respond meaningfully to pressure- related discomfort Very limited. Moisture -- degree to which skin is exposed to moisture Very moist. Activity -- ability to change and control body position Bedfast. Mobility -- ability to change and control body position Very limited. Nutrition -- usual food intake patterns Probably inadequate. Friction and shear Potential problem. INTERVENTIONS: No change in previous interventions as listed below Pressure Ulcer-Education 09/03/2024 Educate Importance Of Changing Position Education Materials On Ulcer Prevention Provide Education On Cause/Prevention Provide Education Regarding Tx Plan Pressure Ulcer-Friction/Shear 09/03/2024 Elevate Head of Bed For Meals Head of Bed Below 30 Degrees When Not Eating Use Bed Trapeze Or Pull Sheet When Head of Bed Elevated Raise Knee Pressure Ulcer-Moisture 09/03/2024 Condom Catheter Instruct Pt/Family To Request Assistance Maintain Clean Dry Skin Protective Barrier Ointment Pressure Ulcer-Nutrition 09/03/2024 Encourage Eating And Assist With Meals Monitor Fluid/Food Intake Offer Liquids Q2H When Turning Offer Ordered Supplements Provide/Encourage Oral Care As Needed Tray Set Up And Assistance Pressure Ulcer-Pressure Reducing 09/03/2024 Frequent Position Changes Heel/Elbow Pads Turn And Reposition Q2H Turn To Side Less Than 30 Degrees Pressure Ulcer-Remobilize 09/03/2024 Encourage Activity As Tolerated Rom Exercises RISK FACTORS THAT INCREASE RISK FOR DEVELOPING PRESSURE INJURIES: The patient/resident has the following: Age over 75 History of previous or current pressure ulcer/injury Device(s): (nasogastric tubes, oxygen tubing, urinary catheters, cell phone etc.) Comment: PIV, Nasal Canula SKIN ALTERATIONS: Pressure Ulcer/Injury Documentation from the past year: Pressure Ulcer Stage 09/04/2024 Stage II Sacrum/coccyx 09/04/2024 Stage II Sacrum/coccyx SKIN ALTERATIONS: Wound Documentation from the past year: No data available for: Skin Integrity - Wound Skin Integrity - Wound Second Skin Integrity - Wound Third Skin Integrity - Wound Fourth Skin Integrity - Wound Fifth Skin Integrity - Wound Additional Pressure Ulcer/Injury: Stage 2: Location(s): Sacrum/coccyx No Edema Wound drainage none. ====== ACTIVITIES OF DAILY LIVING ====== Hygiene ADLs: Oral Care: Non-ventilator patient: Patient dentures/partial plates cleaned: With assistance The Wilsey was educated that poor oral hygiene increases the risk of hospital acquired pneumonia and dental problems like gingivitis and tooth decay. was educated using their preferred method and verbalized understanding. ====== MOBILITY ====== Mobility Status: Comment: Did not witness mobility at this time ====== IV LINES ====== Peripheral IV: Line #1: Assessment: Location: Right, Antecubital Gauge: 20 Dressing Condition: Clean, dry, intact Site Condition: No redness, swelling, pain Line Status: Capped Flushed ====== PSYCHOSOCIAL ====== Type of Emotional Support Provided: 1:1 discussion, Hospitalization discussion, Treatment discussion, Ventilation of feelings encouraged /es/ AILYN CHAUDHARI RN Signed: 09/04/2024 22:30 MARASINAILYN JeanD [facility] Sep 04, 2024 09:12 PM NURSING INPATIENT NOTE: LOCAL TITLE: [facility] NURSING FREQUENT DOCUMENTATION STANDARD TITLE: NURSING INPATIENT NOTE DATE OF NOTE: SEP 04, 2024@21:12 ENTRY DATE: SEP 04, 2024@21:12:15 AUTHOR: AILYN CHAUDHARI COSIGNER: URGENCY: STATUS: COMPLETED Version 2.4 Charting in accordance with [place] APPROVED [place] STANDARD (ARAES) ACUTE INPATIENT/REHABILITATION NURSING ADMISSION SCREENING, ASSESSMENT, AND STANDARDS OF CARE ====== NATIONAL EARLY WARNING SCORE (NEWS) ====== The following vital measurements were used to complete the NEWS. Measurement DT TEMP PULSE RESP BP POx F(C) (L/MIN)(%) 09/04/2024 20:38 99.2(37.3) 86 18 127/68 93 The NEWS total is 4. 1. Temperature (C/F): Score = 0 36.1 - 38.0 C (96.9 - 100.4 F) 2. Pulse: Score = 0 51-90 3. Respirations: Score = 0 12-20 4. Blood Pressure (Only Systolic BP, mmHg): Score = 0 111-219 5. Pulse Oximetry: Score = 2 92% - 93% Comments: avet has O2 saturation goal of 88-92%; ordered by provider 6. Supplemental oxygen in use: Score = 2 Yes 7. AVPU: Score = 0 Alert Patient Status: Remains on unit /es/ AILYN CHAUDHARI RN Signed: 09/04/2024 21:14 AILYN CHAUDHARI [facility] Sep 04, 2024 08:25 PM NURSING E & M NOTE: LOCAL TITLE: NURSING 24 HOUR ORDER VERIFICATION NOTE STANDARD TITLE: NURSING E & M NOTE DATE OF NOTE: SEP 04, 2024@20:25 ENTRY DATE: SEP 04, 2024@20:25:08 AUTHOR: AILYN CHAUDHARI EXP COSIGNER: URGENCY: STATUS: COMPLETED Electronic and hard copy review for orders was completed. Life Sustaining Treatment Orders LST Note Verified /rosette/ AILYN CHAUDHARI RN Signed: 09/04/2024 20:25 AILYN CHAUDHARI [facility] Sep 04, 2024 06:44 PM NURSING NOTE: LOCAL TITLE: NURSING NOTE STANDARD TITLE: NURSING NOTE DATE OF NOTE: SEP 04, 2024@18:44 ENTRY DATE: SEP 04, 2024@18:44:47 AUTHOR: J LUIS CERON COSIGNER: URGENCY: STATUS: COMPLETED calling out from room help! RN to bedside, asked what kind of help is needed. Wilsey states I don't feel good, I don't know what I need but I don't feel good. I feel like I'm going down. RN obtained vital signs, bp 154/68, hr 76, oral temp 99.9, o2 ranging between 88-90%. RN placed on 1L of oxygen via nasal cannula per MD order and administered PRN 650mg acetaminophen per MD order. Throughout shift, had very little intake consisting of a few bites of food and <350ml and output for the shift of 200ml. Wilsey had similar symptoms on previous shift as well. Wilsey now resting in bed with eyes closed. /rosette/ JOSELITO Loza, acrylic fabricator RN Signed: 09/04/2024 18:50 J LUIS CERON [facility] Sep 04, 2024 06:25 PM NURSING INPATIENT NOTE: LOCAL TITLE: [facility] NURSING FREQUENT DOCUMENTATION STANDARD TITLE: NURSING INPATIENT NOTE DATE OF NOTE: SEP 04, 2024@18:25 ENTRY DATE: SEP 04, 2024@18:25:36 AUTHOR: J LUIS CERON COSIGNER: URGENCY: STATUS: COMPLETED Version 2.4 Charting in accordance with [place] APPROVED [place] STANDARD (ARAES) ACUTE INPATIENT/REHABILITATION NURSING ADMISSION SCREENING, ASSESSMENT, AND STANDARDS OF CARE ====== NATIONAL EARLY WARNING SCORE (NEWS) ====== The following vital measurements were used to complete the NEWS. Measurement DT TEMP PULSE RESP BP POx F(C) (L/MIN)(%) 09/04/2024 16:39 97.9(36.6) 78 16 136/70 92 The NEWS total is 2. 1. Temperature (C/F): Score = 0 36.1 - 38.0 C (96.9 - 100.4 F) 2. Pulse: Score = 0 51-90 3. Respirations: Score = 0 12-20 4. Blood Pressure (Only Systolic BP, mmHg): Score = 0 111-219 5. Pulse Oximetry: Score = 2 92% - 93% 6. Supplemental oxygen in use: Score = 0 No 7. AVPU: Score = 0 Alert Patient Status: /rosette/ JOSELITO Loza, acrylic fabricator RN Signed: 09/04/2024 18:26 J LUIS CERON-MALKA [facility] Sep 04, 2024 03:03 PM NURSING INPATIENT NOTE: LOCAL TITLE: [facility] NURSING FREQUENT DOCUMENTATION STANDARD TITLE: NURSING INPATIENT NOTE DATE OF NOTE: SEP 04, 2024@15:03 ENTRY DATE: SEP 04, 2024@15:03:25 AUTHOR: JOHN OSULLIVAN COSIGNER: URGENCY: STATUS: COMPLETED Version 2.4 Charting in accordance with [place] APPROVED [place] STANDARD (ARAES) ACUTE INPATIENT/REHABILITATION NURSING ADMISSION SCREENING, ASSESSMENT, AND STANDARDS OF CARE ====== ACTIVITIES OF DAILY LIVING ====== Hygiene ADLs: Oral Care: Non-ventilator patient: Patient dentures/partial plates cleaned: With assistance The Wilsey was educated that poor oral hygiene increases the risk of hospital acquired pneumonia and dental problems like gingivitis and tooth decay. was educated using their preferred method and verbalized understanding. /rosette/ John Osullivan RN Signed: 09/04/2024 15:04 JOHN OSULLIVAN-VUD [facility] Sep 04, 2024 01:17 PM INTERNAL MEDICINE ATTENDING NOTE: LOCAL TITLE: MEDICINE ATTENDING PHYSICIAN NOTE STANDARD TITLE: INTERNAL MEDICINE ATTENDING NOTE DATE OF NOTE: SEP 04, 2024@13:17 ENTRY DATE: SEP 04, 2024@13:17:47 AUTHOR: PINKY NGUYEN EXP COSIGNER: URGENCY: STATUS: COMPLETED I have seen and examined pt and discussed plan of care with resident and participated in talbot decision making and agree with plan. TEMP: 97.0 F [36.1 C] (09/04/2024 09:03) PULSE: 74 (09/04/2024 09:03) BP: 135/68 (09/04/2024 09:03) SAT: SEP 04, 2024@09:03 -- PULSE OXIMETRY: 92 (with supplemental O2 1.0 l/min % via NASAL CANNULA) WT: 212 lb [96.16 kg] (09/04/2024 05:19) ASSESSMENT/PLAN: - possible new onset systolic vs diastolic HF- new systolic HF has been ruled out. possible acute diastolic HF has resolved with diuresis prior to arrival to [place]. IVC diameter is not consistent with volume overload any more on TTE. portable CXR with no pleural essudions (if any likely very small and posterior no needing further intervention given clear CVA bilaterally on repeat CXR). - possible new hypoxic resp failure- resolved. has weaned off oxygen. likely related to mild pulm edema from above as well as viral PNA. recurrent bacterial PNA has been ruled out. prior episodeof bacterial PNA was fully treated at [facility] prior to transfer to [facility]. - acute viral PNA with Human rhinovirus- suportive care - acute on chronic hyponatremia- BL Na is around 133. stable at 129 here. 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 - delirium- du to recent illness at OSH, rehab and recurrent admission here. seems to be mild. cont delirium precautions. - possible MS flare- pending MRI brain adn C-spine eval per neurology recs. however, given + resp viral panel weakness is likely related to viral infection and prior admission resulting in debility rather than true MS falre. however, will further assess with MRI. appreciate neurology following. no steroids for now per neuro. - chronic hypoalbuminemia- likely related to chronic poor appetite, ADFTT. this seems ot have worsened during this acute illness. will consider palliative care consult on friday. CHRONIC MEDICAL PROBLEMS: - Multiple Sclerosis- mostly treated in [place]. however, per neuro note has been seen by multiple neurologist. [facility]u as op. acute maangement as above. - h/o Prostate cancer - GERD- Famotidine, - HTN- cont home lisinopril and Bisoprolol - HLD- lipitor 20 mg at night - COPD- does not appear to be in exacerbation.cont DUONEBS per rehab - H/o UTIs- acute UTI is rule dout. cont home Methanamine Hipurate - constipation- cont home Miralax - DM2- A1C 5.6%, holding home metformin for now. agree with SSI - vitamin E and D deficiency- canc cont replacement - BPH- cont home Flomax - recent bacterial PNA- completed abx w levaquin 09/02. DVT PPX- Lovenox FULL CODE DISPOSITION: return to [facility] most likely vs pursuing comfort care per discussion with yesterday. /rosette/ PINKY NGUYEN HOSPITALIST Signed: 09/04/2024 13:28 PINKY NGUYEN-MALKA [facility] Sep 04, 2024 12:28 PM NEUROLOGY INPATIENT NOTE: LOCAL TITLE: NEUROLOGY INPATIENT PROGRESS NOTE STANDARD TITLE: NEUROLOGY INPATIENT NOTE DATE OF NOTE: SEP 04, 2024@12:28 ENTRY DATE: SEP 04, 2024@12:28:26 AUTHOR: KINA PHILLIPS EXP COSIGNER: SISSY BASHIR URGENCY: STATUS: COMPLETED NEUROLOGY INPATIENT PROGRESS NOTE Has ADDENDA CONSULT FOLLOW UP NOTE: Neurology Consult Follow-up Note: SUBJECTIVE: Overnight: No acute event overnight. met at bedside and reports improvement in patient's mental status Patient reports feeling unwell but unable to explain further. He denied being in pain of fatigue. OBJECTIVE: VITALS: Personally reviewed and interpreted Tc: 97.0 F [36.1 C] (09/04/2024 09:03) HR: 74 (09/04/2024 09:03) RR: 18 (09/04/2024 09:03) BP: 135/68 (09/04/2024 09:03) SpO2: SEP 04, 2024@09:03 -- PULSE OXIMETRY: 92 (with supplemental O2 1.0 l/min % via NASAL CANNULA) PHYSICAL EXAM: GENERAL: ill appearing, cooperative SKIN: warm and dry, no rashes, wounds, ulcers EYES: conjunctiva clear, EOMI, PERRLA ENT: intact, mucous membranes moist, no apparent injury HEAD/NECK: neck supple, no apparent injury RESPIRATORY/THORAX: breath sounds equal, respirations non-labored,coarse crepitations in Right lower lung zone CARDIOVASCULAR: regular rate and rhythm, normal S1 and S2, no murmurs, no edema GASTROINTESTINAL: bowel sounds normal, soft, non-tender, no hepatosplenomegaly MUSCULOSKELETAL: no joint swelling, full range of motion in all extremities; scar over left knee PSYCHOLOGICAL: appropriate mood and behavior NEUROLOGICAL: Mental Status: Drowsy, oriented to person only at initial evaluation but later oriented to place, day and month, interactive, able to follow commands with some difficulty Speech: Intact Articulation CN 2-12: II - VFs full to confrontation III, IV, - PERRLA, EOMI V - Facial sensation intact VII - Brow raise and smile symmetrical VIII - Auditory acuity intact IX, X - Palate elevation symmetric, uvula midline XI - SCM and Trapezius strength intact XII - Tongue protrudes midline Motor: RUE: 5/5 LUE: 4/5 (pronator drift) RLE: 5/5 LLE: 3/5 (hip flexion), 4/5 (ankle dorsiflexion), other muscle groups 5/5 Sensory: intact light touch throughout Reflexes: trace throughout, plantar response extensor bilaterally Coordination: no ataxia with gumbrk-cr-agk testing Gait/Station: deferred MEDS: Active Inpatient Medications (including Supplies): Active Inpatient Medications Status 1) ACETAMINOPHEN TAB 650MG PO Q6H PRN For fever >101F or 1st ACTIVE line for mild/moderate pain Indication: FOR PAIN/FEVER 2) ASPIRIN TAB,EC 81MG PO DAILY ACTIVE Indication: FOR HEART 3) ATORVASTATIN TAB 20MG PO QHS ACTIVE Indication: FOR CHOLESTEROL 4) BISOPROLOL TAB 5MG PO DAILY ACTIVE Indication: FOR BLOOD PRESSURE/HEART 5) DEXTROSE 15GM/32ML PKT GEL,ORAL 1 PACKET (15GM) PO Q15MIN ACTIVE PRN Give one tube (15gm) for BG 51-70mg/dl. Perform fingerstick 15 minutes after treatment; notify treating provider. Indication: FOR LOW BLOOD SUGAR 6) DEXTROSE 15GM/32ML PKT GEL,ORAL 2 PACKETS (30GM) PO Q15MIN ACTIVE PRN Give two tubes (30g) for BG 50 mg/dL and below. Perform fingerstick 15 minutes after treatment; notify treating provider. Indication: FOR LOW BLOOD SUGAR 7) DEXTROSE 50% INJ,SOLN 25ML (1/2 AMP/SYRINGE) IV Q15MIN PRN ACTIVE Give 50% dextrose 25 mL IV (over 3 min) STAT for BG of 51 - 70 mg/dL or NPO. Perform fingerstick 15 minutes after treatment; notify treating provider. Indication: FOR LOW BLOOD SUGAR 8) DEXTROSE 50% INJ,SOLN 50ML (1 AMP/SYRINGE) IV Q15MIN PRN ACTIVE Give 50% dextrose 50 mL IV (over 3 min) STAT for BG of 50 mg/dL and below or unresponsive or NPO. Perform fingerstick 15 minutes after treatment; notify treating provider. Indication: FOR LOW BLOOD SUGAR 9) DICLOFENAC NA 1% GEL,TOP 2 GRAM STRIP TOP Q6H PRN ACTIVE Indication: FOR PAIN 10) ENOXAPARIN (LMW HEPARIN) INJ 40MG/0.4ML SQ Q24H Instructions ACTIVE too long. See order details for full text. Indication: TO THIN BLOOD 11) FAMOTIDINE (famOTidine) TAB 20MG PO BID PRN ACTIVE Indication: FOR STOMACH 12) GABAPENTIN CAP,ORAL 200MG PO TID ACTIVE Indication: FOR NERVE PAIN 13) GLUCAGON INJ 1MG/1ML SC Q15MIN PRN Instructions too long. ACTIVE See order details for full text. Indication: FOR LOW BLOOD SUGAR 14) INSULIN ASPART (NOVOLOG) INJ CORRECTION DOSE:SEE COMMENTS SQ ACTIVE AT MEAL END Give after pt fed WITH scheduled meal/prandial insulin(if ordered) If premeal FSBS 131-180=1 unit; 181-230=2 unit; 231-280=3 unit; 281-330=4 unit; >330=5 unit. DO NOT HOLD for NPO. Indication: FOR BLOOD SUGAR 15) LISINOPRIL TAB 5MG PO DAILY ACTIVE Indication: FOR HIGH BLOOD PRESSURE 16) METHENAMINE HIPPURATE TAB 1GM PO BID DURATION: Continuation ACTIVE of chronic home therapy Indication: TO PREVENT URINARY TRACT INFECTION 17) PRESERVISION AREDS 2 (NON-SMOKER) CAP/ 1 SOFTGEL PO BID PC ACTIVE Indication: FOR EYE HEALTH 18) TAMSULOSIN (FLOMAX) CAP,ORAL 0.4MG PO QPM ACTIVE Indication: FOR PROSTATE DATA: Notable for hyponatremia and normal anion gap metabolic acidosis IMAGING: No new neurological imaging since last review. A/P: Patient is a 79 year old Wilsey transferred from [facility] to [facility] on September 03, 2023 and currently admitted to medicine service for Chronic weakness and there is suspicion for new onset Heart failure with elevated ProBNP, concern for pneumonia and UTI. Patient has a PMH of GERD, multiple sclerosis, prostate cancer, T2DM, HLD, HTN, COPD, Left eye macular degeneration. He has been having chronic weakness of his lower extremities (left more than right at baseline) and mostly non ambulatory at baseline. Per , patient broke his left leg in December, and has been bed ridden since then. He was mostly in his hospital bed since then, would take 3-5 steps with walker to shift to his lift chair and spend most of the day in it. He was able to go to the restroom (20 steps around 5 times a day) at baseline. denies any memory issues at baseline # history of MS # Concern for MS flare - reports that patient received his diagnosis of MS back in 2015 in [place] at age 70 years and was being followed by Dr.David Davila from [facility] for MS. It is possible but somewhat unusually to be diagnosed in later life with MS. - She reports that patient initial symptoms at the time of diagnosis were repetitive falls, weakness in his legs ( left > right), dragging of left leg and inability to walk long distances. He cannot see at baseline from left eye due to Macular degeneration. - reports that patient has been on Ocrelizumab since atleast 4 years, last received it around February 2024 when they were evaluated by Dr. Davila. He then retired in Mar 2024 and they used to do 6 months follow up with him. Patient has tolerated Ocrelizumab well except for side effect of diarrhea after the infusion, getting Ocrelizumab every 6 months. - reports that the patient has not received any head/spine imaging in the past 3-4 years. - She denied patient having new symptoms from MS over time- focal weakness, numbness in extremities, shooting pains, painful eye movements. She reports that patient has some choking at baseline since past few months. - reports improvement in mental status since admission. PLAN - Current deconditioning and encephalopathy is more likely in the setting of medical condition and infections than from an MS flare. - Follow up MRI head w and wo contrast and MRI C spine w and wo contrast for further evaluation. - Patient currently not a candidate for immunosuppressive therapy due to ongoing infections, and recent high-dose steroid therpay - We recommend treating underlying etiologies per primary team - We arrange outpatient follow up with in [place] clinic since family is agreeable to this . - We will continue to follow Staffed with Dr Bashir who agrees with above plan. Kina Phillips MD Neurology PGY-4 [phone] /rosette/ KINA PHILLIPS MD Signed: 09/04/2024 12:37 /es/ SISSY BASHIR Cosigned: 09/04/2024 12:47 09/04/2024 ADDENDUM STATUS: COMPLETED Mr. Chung ([id number]) was seen today 09/04/[address] Kina Phillips, Neurology resident. I reviewed and approved the entire content of the attached Neurology Progress Note written by Dr. Phillips. He is a 79yo with history of diagnosis of multiple sclerosis made in [place] in 2016. He has been followed outpatient by various neurologists and on Ocrevus infusion. He was admitted with falls and inability to walk to OSH and found to have pneumonia and UTI. There was some concern for MS flare at the outside hospital and he was reportedly given high dose steroids. Today he can tell me the place and city, but still has trouble with year and month. He has some mild LUE and LLE weakness but no reflex asymmetry or hyperreflexia. Unclear basis of MS diagnosis, but difficulty walking and altered mental status could also correlate with ongoing infectious issues. Recommend MRI brain without and with contrast if possible (but has CKD). Does not need current immunosuppression in hospital dawit in light of recent steroid dosing and infectious issues. Can follow up with our outpatient MS specialist Dr. Fajardo in clinic for clarification of MS diagnosis and treatment going forward. /es/ SISSY BASHIR Signed: 09/04/2024 12:48 09/06/2024 ADDENDUM STATUS: COMPLETED will schedule with [facility] MS clinic in Oct once schedule/ profile is open. /es/ JOSELITO Bar RN [facility] Neurology Rda Signed: 09/06/2024 08:45 Receipt Acknowledged By: * AWAITING SIGNATURE * ISMAEL JOSEPH FATAI M [place] Sep 04, 2024 10:57 AM INTERNAL MEDICINE NOTE: LOCAL TITLE: MEDICINE SOAP NOTE STANDARD TITLE: INTERNAL MEDICINE NOTE DATE OF NOTE: SEP 04, 2024@10:57 ENTRY DATE: SEP 04, 2024@10:57:44 AUTHOR: FRANCK TURNER COSIGNER: PINKY NGUYEN URGENCY: STATUS: COMPLETED Overnight: NAEO SUBJECTIVE: Still somewhat delirious although oriented to person and place today. is at bedside. is still commenting to her I think I am dying and this is understandably distressing to her. Wilsey complains of some discomfort but cannot further characterize it, will add pain regimen. is understanding of plan for workup and in agreement. ROS: Reviewed and negative unless noted otherwise above. OBJECTIVE: VITALS: Tc: 97.0 F [36.1 C] (09/04/2024 09:03) HR: 74 (09/04/2024 09:03) RR: 18 (09/04/2024 09:03) BP: 135/68 (09/04/2024 09:03) SpO2: SEP 04, 2024@09:03 -- PULSE OXIMETRY: 92 (with supplemental O2 1.0 l/min % via NASAL CANNULA) PHYSICAL EXAM: GENERAL : lying in bed, in NAD. is at bedside. HEENT: anicteric sclera, moist mucus membranes. CVS : RRR w/ normal S1 and S2. +1 peripheral edema to LE bilaterally. PULM : Normal work of breathing on RA. Lungs with mild basilar crackles, poor effort. GI : +BS, soft, nontender, nondistended. DERM : no noted rash, bruising, bleeding, wounds. MSK : No joint swelling or deformity. NEURO : CN II-XII grossly intact, AAO x3. No focal deficits. Moves all extremities spontaneously. PSYCH : mood & affect appropriate. MEDS: Active Inpatient Medications (including Supplies): Active Inpatient Medications Status 1) ACETAMINOPHEN TAB 650MG PO Q6H PRN For fever >101F or 1st ACTIVE line for mild/moderate pain Indication: FOR PAIN/FEVER 2) ASPIRIN TAB,EC 81MG PO DAILY ACTIVE Indication: FOR HEART 3) ATORVASTATIN TAB 20MG PO QHS ACTIVE Indication: FOR CHOLESTEROL 4) BISOPROLOL TAB 5MG PO DAILY ACTIVE Indication: FOR BLOOD PRESSURE/HEART 5) DEXTROSE 15GM/32ML PKT GEL,ORAL 1 PACKET (15GM) PO Q15MIN ACTIVE PRN Give one tube (15gm) for BG 51-70mg/dl. Perform fingerstick 15 minutes after treatment; notify treating provider. Indication: FOR LOW BLOOD SUGAR 6) DEXTROSE 15GM/32ML PKT GEL,ORAL 2 PACKETS (30GM) PO Q15MIN ACTIVE PRN Give two tubes (30g) for BG 50 mg/dL and below. Perform fingerstick 15 minutes after treatment; notify treating provider. Indication: FOR LOW BLOOD SUGAR 7) DEXTROSE 50% INJ,SOLN 25ML (1/2 AMP/SYRINGE) IV Q15MIN PRN ACTIVE Give 50% dextrose 25 mL IV (over 3 min) STAT for BG of 51 - 70 mg/dL or NPO. Perform fingerstick 15 minutes after treatment; notify treating provider. Indication: FOR LOW BLOOD SUGAR 8) DEXTROSE 50% INJ,SOLN 50ML (1 AMP/SYRINGE) IV Q15MIN PRN ACTIVE Give 50% dextrose 50 mL IV (over 3 min) STAT for BG of 50 mg/dL and below or unresponsive or NPO. Perform fingerstick 15 minutes after treatment; notify treating provider. Indication: FOR LOW BLOOD SUGAR 9) DICLOFENAC NA 1% GEL,TOP 2 GRAM STRIP TOP Q6H PRN ACTIVE Indication: FOR PAIN 10) ENOXAPARIN (LMW HEPARIN) INJ 40MG/0.4ML SQ Q24H Instructions ACTIVE too long. See order details for full text. Indication: TO THIN BLOOD 11) FAMOTIDINE (famOTidine) TAB 20MG PO BID PRN ACTIVE Indication: FOR STOMACH 12) GABAPENTIN CAP,ORAL 200MG PO TID ACTIVE Indication: FOR NERVE PAIN 13) GLUCAGON INJ 1MG/1ML SC Q15MIN PRN Instructions too long. ACTIVE See order details for full text. Indication: FOR LOW BLOOD SUGAR 14) INSULIN ASPART (NOVOLOG) INJ CORRECTION DOSE:SEE COMMENTS SQ ACTIVE AT MEAL END Give after pt fed WITH scheduled meal/prandial insulin(if ordered) If premeal FSBS 131-180=1 unit; 181-230=2 unit; 231-280=3 unit; 281-330=4 unit; >330=5 unit. DO NOT HOLD for NPO. Indication: FOR BLOOD SUGAR 15) LISINOPRIL TAB 5MG PO DAILY ACTIVE Indication: FOR HIGH BLOOD PRESSURE 16) METHENAMINE HIPPURATE TAB 1GM PO BID DURATION: Continuation ACTIVE of chronic home therapy Indication: TO PREVENT URINARY TRACT INFECTION 17) PRESERVISION AREDS 2 (NON-SMOKER) CAP/ 1 SOFTGEL PO BID PC ACTIVE Indication: FOR EYE HEALTH 18) TAMSULOSIN (FLOMAX) CAP,ORAL 0.4MG PO QPM ACTIVE Indication: FOR PROSTATE DATA: WBC: 6.9 K/cmm (09/03/2024 05:00) H HCT: 0 PLT: 0 MCV: 83.6 fL (09/03/2024 05:00) RDW: 14.8 % (09/03/2024 05:00) INR: ____ PTT: ____ SODIUM: 128 mmol/L L (09/04/2024 05:00) POTASSIUM: 3.9 mmol/L (09/04/2024 05:00) CHLORIDE: 99 mmol/L (09/04/2024 05:00) CO2: 21 mmol/L L (09/04/2024 05:00) BUN: 13 mg/dL (09/04/2024 05:00) CREATININE: Collection DT Specimen Test Name Result Units Ref Range 09/04/2024 05:00 PLASMA!! CREATININE 0.75 mg/dL 0.72 - 1.25 !! Indicates COMMENTS AVAILABLE...Refer to Interim Lab Report. CALCIUM: 8.0 mg/dL L (09/04/2024 05:00) ANION GAP: 8.0 mEq/L (09/04/2024 05:00) AST: 11 U/L (08/29/2024 20:32) ALT: 15 U/L (08/29/2024 20:32) ALK PHOS: 97 U/L (08/29/2024 20:32) BILIRUBIN: ALBUMIN: 2.9 g/dL L (08/29/2024 20:32) PROTEIN: 5.9 g/dL L (08/29/2024 20:32) HgA1C: Collection DT Specimen Test Name Result Units Ref Range 09/03/2024 05:00 BLOOD HGB 9.5 L g/dL 14.0 - 18.0 IMAGING: A/P: 79M with PMH COPD presents for chronic weakness, new oxygen requirement after IV fluids 24h prior. #Weakness, multifactorial -TTE with EF 60-60%, HFpEF score 50-75% likely, cannot accurately calculate given no PA pressure estimate - UA not indicative of acute infection -CXR (09/03): no fluid overload, bibasilar r>l opacities -BNP >1600 -Note: additional history from spouse indicates at baseline could ambulate 20 steps 4-5 x/day to bathroom with a walker, was mostly sedentary in recliner. 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 -Etiology is most likely debility, with contribution of suspected new heart failure with preserved EF after 3L of fluids, less likely infectious causes given normal WBC and afebrile, less likely acute MS flare given baseline neuro exam PLAN: -Strict I/O -BCx drawn, will follow -Speech eval for suspected chronic aspiration -Resp PCR to eval for viral PNA -PT/OT -Lab holiday 09/05 #Multiple sclerosis -Imaging: CT head 08/29/24: Periventricular decreased attenuation likely sequelae of remote ischemic small-vessel disease. -Receives outpatient Ocrelizumab infusions for MS PLAN: -Neurology consult, appreciate recs -Ordered MRI head and c-spine w/wo #Type II diabetes mellitus c/b neuropathy -On metformin at home -A1c 5.6 09/03 PLAN: -Hold metformin -Gabapentin tab 200mg TID for neuropathy -CF SSI and Accu-Chek's CHRONIC MEDICAL CONDITIONS: GERD: home famotidine 20mg tab twice a day as needed Prostate cancer: receives leuprolide (eligard) 45mg(6 month)LA inj as outpatient, on home silodosin 8mg oral cap daily will convert to tamsulosin 0.8mg daily, resume methenamine Hippurate 1gm tab twice a day for UTI px CAD: aspirin 81mg chew tab daily HLD: atorvastatin calcium tab 20mg at bedtime HTN: bisoprolol fumarate 5mg tab daily, resume lisinopril 5mg daily FEN/DVT Ppx: F- PO E- Monitor and replete N- Carb 2 DVT Ppx: Prophylactic lovenox Code Status: Full Code Dispo: Acute Franck Turner MD PGY1 Internal Medicine Pager: [phone] /rosette/ FRANCK TURNER PGY1 Signed: 09/04/2024 11:16 /rosette/ PINKY NGUYEN HOSPITALIST Cosigned: 09/04/2024 13:16 [facility] Sep 04, 2024 09:09 AM NURSING INPATIENT NOTE: LOCAL TITLE: [facility] NURSING FREQUENT DOCUMENTATION STANDARD TITLE: NURSING INPATIENT NOTE DATE OF NOTE: SEP 04, 2024@09:09 ENTRY DATE: SEP 04, 2024@09:09:14 AUTHOR: J LUIS CERON COSIGNER: URGENCY: STATUS: COMPLETED Version 2.4 Charting in accordance with [place] APPROVED [place] STANDARD ([facility]) ACUTE INPATIENT/REHABILITATION NURSING ADMISSION SCREENING, ASSESSMENT, AND STANDARDS OF CARE ====== NATIONAL EARLY WARNING SCORE (NEWS) ====== The following vital measurements were used to complete the NEWS. Measurement DT TEMP PULSE RESP BP POx F(C) (L/MIN)(%) 09/04/2024 09:03 97.0(36.1) 74 18 135/68 92[1.0][] The NEWS total is 4. 1. Temperature (C/F): Score = 0 36.1 - 38.0 C (96.9 - 100.4 F) 2. Pulse: Score = 0 51-90 3. Respirations: Score = 0 12-20 4. Blood Pressure (Only Systolic BP, mmHg): Score = 0 111-219 5. Pulse Oximetry: Score = 2 92% - 93% 6. Supplemental oxygen in use: Score = 2 Yes 7. AVPU: Score = 0 Alert Patient Status: Remains on unit /rosette/ JOSELITO Loza, acrylic fabricator RN Signed: 09/04/2024 09:09 J LUIS CERON [facility] Sep 04, 2024 09:08 AM NURSING E & M NOTE: LOCAL TITLE: NURSING 24 HOUR ORDER VERIFICATION NOTE STANDARD TITLE: NURSING E & M NOTE DATE OF NOTE: SEP 04, 2024@09:08 ENTRY DATE: SEP 04, 2024@09:08:47 AUTHOR: J LUIS CERON EXP COSIGNER: URGENCY: STATUS: COMPLETED Electronic and hard copy review for orders was completed. Life Sustaining Treatment Orders LST Note Verified Comments: FULL CODE /rosette/ JOSELITO Loza, acrylic fabricator RN Signed: 09/04/2024 09:09 J LUIS CERON [facility] Sep 04, 2024 08:15 AM NURSING INPATIENT NOTE: LOCAL TITLE: [facility] ACUTE INPATIENT NSG SHIFT ASSESSMENT STANDARD TITLE: NURSING INPATIENT NOTE DATE OF NOTE: SEP 04, 2024@08:15 ENTRY DATE: SEP 04, 2024@10:25:34 AUTHOR: J LUIS CERON COSIGNER: URGENCY: STATUS: COMPLETED Version 2.2 Charting in accordance with [place] APPROVED [place] STANDARD ([facility]) ACUTE INPATIENT/REHABILITATION NURSING ADMISSION SCREENING, ASSESSMENT, AND STANDARDS OF CARE ====== ASSESSMENT ====== ====== HANDOFF ====== Bedside report and handoff completed Safety check completed ====== PAIN ASSESSMENT ====== Patient's acceptable pain goal: 0 No pain Are you currently experiencing pain? No: ====== ALMAZAN FALL SCALE & TIPS PROGRAM ====== Almazan Fall Scale: The Almazan Fall scale was performed and score was 80. This is indicative of high risk for falls. History of falling: immediate or within 3 months? Yes Secondary diagnosis: Yes Ambulatory aid: None/bedrest/nurse assist Intravenous therapy/Heparin lock: Yes Gait/Transferring: Impaired Mental Status: Oriented to own ability/knows own limitations Fall Tailoring Interventions for Patient Safety (TIPS) Fall TIPS reviewed with patient: Yes Interventions: Communicate recent fall or risk of harm Bed/Chair Alarm on ====== ENVIRONMENTAL SAFETY MANAGEMENT ====== Implemented safety standards of care: -[place] to unit & environment -Adequate room lighting -Bed in low and locked position -Call light within reach -Personal items within reach -Traffic path in room free of clutter -Non-slip footwear -Upper/half length side rails up for bed mobility -Sensory aids within reach -Encourage patient to utilize sensory support Additional safety measures: Alarms: Bed Caregiver/family in attendance Close to nurses station Increased frequency of rounding ====== NEUROLOGICAL ====== Neurological Orientation: Person Situation Level of Consciousness (AVPU): Alert = Appears aware of and responsive to the environment on their own. Follows commands, opens eyes spontaneously, and tracks objects. 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 Operator Chief Bilateral: Moderate Upper Extremity Bilateral: Moves against some resistance Lower Extremity Bilateral: Moves against gravity Sensation: Upper Extremity Sensation Bilateral: Intact Lower Extremity Sensation Bilateral: Intact Temperature: Upper Extremity Temperature Bilateral: Warm Lower Extremity Temperature Bilateral: Warm ====== CARDIOVASCULAR ====== Heart Sounds: Normal (S1S2) Heart Rate/Rhythm (without logging tractor operator swamp): Regular Capillary Refill: All 4 extremities, less than or equal to 3 seconds. Edema: Present Pitting Location: BLE Measurement: 2+ Slight indentation. 15 seconds to rebound. ====== RESPIRATORY ====== Respirations: Unlabored Pattern: Regular Breath Sounds Auscultated: Anterior only Right Upper Lobe: Diminished Left Upper Lobe: Diminished Right Middle Lobe: Diminished Right Lower Lobe: Diminished Left Lower Lobe: Diminished Comment: During AM vital signs, o2 sat 92% on 1L oxygen. Per MD order, took off supplemental oxygen for > 90% saturation. Will reassess at 1200. ====== GASTROINTESTINAL ====== Last bowel movement: 09/04/2024 Bowel movement reported by patient-unwitnessed Elimination: Incontinent Abdominal Description: Rounded Protuberant (central obesity) Palpation: Soft, Non-tender Bowel Sounds: RUQ: Active LUQ: Active RLQ: Active LLQ: Active ====== GENITOURINARY ====== Elimination: Incontinent Urinary Catheter: Type: External Male Device: Other device: male purewick attached to suction ===== INTEGUMENTARY/SKIN/WOUND - (INCLUDING CHICHI) SEE NOTE: VAAES SKIN INPECTION/ASSESSMENT ===== ===== INTEGUMENTARY/SKIN/WOUND - (INCLUDING CHICHI) ===== Assessment Type: SKIN REINSPECTION/REASSESSMENT SKIN INSPECTION: Skin Color: Usual for ethnicity Skin Temperature: Warm Skin Moisture: Dry Skin Turgor: Elastic (normal/immediate) Chichi Skin Assessment: The patient's Chichi Scale Score is 11. The patient is at high risk for development of pressure ulcers/injuries. Sensory perception -- ability to respond meaningfully to pressure-related discomfort Very limited. Moisture -- degree to which skin is exposed to moisture Very moist. Activity -- ability to change and control body position Bedfast. Mobility -- ability to change and control body position Very limited. Nutrition -- usual food intake patterns Probably inadequate. Friction and shear Potential problem. INTERVENTIONS: No change in previous interventions as listed below Pressure Ulcer-Education 09/03/2024 Educate Importance Of Changing Position Education Materials On Ulcer Prevention Provide Education On Cause/Prevention Provide Education Regarding Tx Plan Pressure Ulcer-Friction/Shear 09/03/2024 Elevate Head of Bed For Meals Head of Bed Below 30 Degrees When Not Eating Use Bed Trapeze Or Pull Sheet When Head of Bed Elevated Raise Knee Pressure Ulcer-Moisture 09/03/2024 Condom Catheter Instruct Pt/Family To Request Assistance Maintain Clean Dry Skin Protective Barrier Ointment Pressure Ulcer-Nutrition 09/03/2024 Encourage Eating And Assist With Meals Monitor Fluid/Food Intake Offer Liquids Q2H When Turning Offer Ordered Supplements Provide/Encourage Oral Care As Needed Tray Set Up And Assistance Pressure Ulcer-Pressure Reducing 09/03/2024 Frequent Position Changes Heel/Elbow Pads Turn And Reposition Q2H Turn To Side Less Than 30 Degrees Pressure Ulcer-Remobilize 09/03/2024 Encourage Activity As Tolerated Rom Exercises RISK FACTORS THAT INCREASE RISK FOR DEVELOPING PRESSURE INJURIES: The patient/resident has the following: Age over 75 History of previous or current pressure ulcer/injury Device(s): (nasogastric tubes, oxygen tubing, urinary catheters, cell phone etc.) Comment: catheter tubing SKIN ALTERATIONS: Pressure Ulcer/Injury Documentation from the past year: Pressure Ulcer Stage 09/04/2024 Stage II Sacrum/coccyx 09/03/2024 Stage II Sacrum/coccyx SKIN ALTERATIONS: Wound Documentation from the past year: No data available for: Skin Integrity - Wound Skin Integrity - Wound Second Skin Integrity - Wound Third Skin Integrity - Wound Fourth Skin Integrity - Wound Fifth Skin Integrity - Wound Additional Pressure Ulcer/Injury: Stage 2: Location(s): Sacrum/coccyx No Edema Wound drainage none. ====== ACTIVITIES OF DAILY LIVING ====== Hygiene ADLs: Dressing: Upper Body: Moderate assist Lower Body: Moderate assist Eating: Minimal assist Oral Care: Non-ventilator patient: Patient dentures/partial plates cleaned: With assistance The was educated that poor oral hygiene increases the risk of hospital acquired pneumonia and dental problems like gingivitis and tooth decay. Wilsey was educated using their preferred method and verbalized understanding. Toileting: Dependent ====== MOBILITY ====== Mobility Status: Total assist: Unable to sit up independently at the side of bed PT/OT/Rehab involved in care and contributing to mobility goals: Comment: consult placed Gait: Unable to ambulate ====== IV LINES ====== Peripheral IV: Line #1: Assessment: Location: Right, Antecubital Gauge: 20 Dressing Condition: Clean, dry, intact Site Condition: No redness, swelling, pain Line Status: Capped Flushed ====== PSYCHOSOCIAL ====== Type of Emotional Support Provided: 1:1 discussion, Treatment discussion, Ventilation of feelings encouraged /rosette/ JOSELITO Loza, acrylic fabricator RN Signed: 09/04/2024 10:51 J LUIS CERON [facility] Sep 04, 2024 07:40 AM NURSING NOTE: LOCAL TITLE: NURSING NOTE STANDARD TITLE: NURSING NOTE DATE OF NOTE: SEP 04, 2024@07:40 ENTRY DATE: SEP 04, 2024@07:40:07 AUTHOR: SVITLANA BARAHONA EXP COSIGNER: URGENCY: STATUS: COMPLETED Yes - Wilsey/Caregiver verbalized understanding of topics discussed and education provided While i was preparing to scan tylenol, Patient actually stated that he has pain on his arm and generalized discomfort. patient 30 minutes after taking tylenol stated that he felt better. Patient resting well in the bed. call light within reach, will continue to monitor throughout the shift. /JOSELITO padilla,acrylic fabricator RN Signed: 09/04/2024 07:46 SVITLANA BARAHONA [facility] Sep 04, 2024 06:51 AM NURSING NOTE: LOCAL TITLE: NURSING NOTE STANDARD TITLE: NURSING NOTE DATE OF NOTE: SEP 04, 2024@06:51 ENTRY DATE: SEP 04, 2024@06:51:12 AUTHOR: SVITLANA BARAHONA EXP COSIGNER: URGENCY: STATUS: COMPLETED Yes - /Caregiver verbalized understanding of topics discussed and education Phlebo on morning lab draw called me and said that patient is complaining of not feeling good. I went to the patient at bedside assessed the patient. Patient said I'm not feeling good, I don't know how to explain to you. Do you have something to help me feel better? . I called the oncall medicine team, and let told that the patient is not feeling good, that he needs some thing to make him feel better. Provider ordered the tylenol prn for discomfort/pain. Going to administer tylenol for discomfort. And will continue to monitor throughout the shift. /rosette/ JOSELITO brgigs,acrylic fabricator RN Signed: 09/04/2024 07:01 SVITLANA BARAHONA-MALKA [facility] Sep 04, 2024 04:13 AM NURSING INPATIENT NOTE: LOCAL TITLE: [facility] NURSING FREQUENT DOCUMENTATION STANDARD TITLE: NURSING INPATIENT NOTE DATE OF NOTE: SEP 04, 2024@04:13 ENTRY DATE: SEP 04, 2024@04:13:39 AUTHOR: SVITLANA BARAHONA EXP COSIGNER: URGENCY: STATUS: COMPLETED Version 2.4 Charting in accordance with [place] APPROVED [place] STANDARD ([facility]) ACUTE INPATIENT/REHABILITATION NURSING ADMISSION SCREENING, ASSESSMENT, AND STANDARDS OF CARE ====== NATIONAL EARLY WARNING SCORE (NEWS) ====== The following vital measurements were used to complete the NEWS. Measurement DT TEMP PULSE RESP BP POx F(C) (L/MIN)(%) 09/04/2024 03:59 97.5(36.4) 93 20 123/72 92 The NEWS total is 4. 1. Temperature (C/F): Score = 0 36.1 - 38.0 C (96.9 - 100.4 F) 2. Pulse: Score = 0 51-90 3. Respirations: Score = 0 12-20 4. Blood Pressure (Only Systolic BP, mmHg): Score = 0 111-219 5. Pulse Oximetry: Score = 2 92% - 93% 6. Supplemental oxygen in use: Score = 2 Yes 7. AVPU: Score = 0 Alert Action/Interventions Taken: Repeat NEWS scoring with next vital signs Patient Status: Remains on unit /es/ JOSELITO briggs,acrylic fabricator RN Signed: 09/04/2024 04:15 SVITLANA BARAHONAINGTON-CDD [facility] Sep 04, 2024 03:35 AM NURSING INPATIENT NOTE: LOCAL TITLE: [facility] ACUTE INPATIENT NSG SHIFT ASSESSMENT STANDARD TITLE: NURSING INPATIENT NOTE DATE OF NOTE: SEP 04, 2024@03:35 ENTRY DATE: SEP 04, 2024@03:35:23 AUTHOR: SVITLANA BARAHONA EXP COSIGNER: URGENCY: STATUS: COMPLETED Version 2.2 Charting in accordance with [facility] [place] STANDARD ([facility]) ACUTE INPATIENT/REHABILITATION NURSING ADMISSION SCREENING, ASSESSMENT, AND STANDARDS OF CARE ====== REASSESSMENT ====== ====== PAIN ASSESSMENT ====== Patient's acceptable pain goal: 0 No pain Are you currently experiencing pain? No: Pain Score: 0 ====== NEUROLOGICAL ====== Neurological Orientation: Person Level of Consciousness (AVPU): Alert = Appears aware of and responsive to the environment on their own. Follows commands, opens eyes spontaneously, and tracks objects. Affect/behavior: Cooperative Calm Masters Agitation Sedation Scale (RASS): 0 Alert and calm ====== NEUROMUSCULAR/NEUROVASCULAR EXTREMITIES ASSESSMENT ====== Strength: Telephone Operator Chief Bilateral: Strong Upper Extremity Bilateral: Full strength Lower Extremity Bilateral: Moves against gravity Sensation: Upper Extremity Sensation Bilateral: Intact Lower Extremity Sensation Bilateral: Intact Temperature: Upper Extremity Temperature Bilateral: Warm Lower Extremity Temperature Bilateral: Warm ====== CARDIOVASCULAR ====== Heart Sounds: Normal (S1S2) Heart Rate/Rhythm (without logging tractor operator swamp): Regular Capillary Refill: All 4 extremities, less than or equal to 3 seconds. Peripheral Pulses: All 4 extremities, 3+ normal. Edema: None ====== RESPIRATORY ====== Respirations: Unlabored Pattern: Regular Breath Sounds Auscultated: Anterior only Right Upper Lobe: Diminished Left Upper Lobe: Diminished Right Middle Lobe: Diminished Right Lower Lobe: Diminished Left Lower Lobe: Diminished Supplemental Oxygen Therapy: Flow rate (liters/min): 2 Method: Nasal cannula ====== GASTROINTESTINAL ====== Last bowel movement: 09/02/2024 Bowel movement reported by patient-unwitnessed Passing flatus Elimination: Continent Abdominal Description: Rounded Palpation: Soft, Non-tender Bowel Sounds: RUQ: Active LUQ: Active RLQ: Active LLQ: Active ====== GENITOURINARY ====== Elimination: Incontinent Urinary Catheter: Type: Indwelling: External Male Device: Other device: Purewick ===== INTEGUMENTARY/SKIN/WOUND - (INCLUDING CHICHI) SEE NOTE: VAAES SKIN INPECTION/ASSESSMENT ===== /es/ JOSELITO briggs,acrylic fabricator RN Signed: 09/04/2024 03:41 SVITLANA BARAHONA [place]-CDD [facility] Sep 04, 2024 12:04 AM NURSING INPATIENT NOTE: LOCAL TITLE: VAAES ACUTE INPATIENT NSG SHIFT ASSESSMENT STANDARD TITLE: NURSING INPATIENT NOTE DATE OF NOTE: SEP 04, 2024@00:04 ENTRY DATE: SEP 04, 2024@00:04:21 AUTHOR: SVITLANA BARAHONA EXP COSIGNER: URGENCY: STATUS: COMPLETED Version 2.2 Charting in accordance with [place] APPROVED [place] STANDARD (VAAES) ACUTE INPATIENT/REHABILITATION NURSING ADMISSION SCREENING, ASSESSMENT, AND STANDARDS OF CARE ====== ASSESSMENT ====== ====== HANDOFF ====== Bedside report and handoff completed Safety check completed ====== PAIN ASSESSMENT ====== Patient's acceptable pain goal: 0 No pain Are you currently experiencing pain? No: Pain Score: 0 ====== ALMAZAN FALL SCALE & TIPS PROGRAM ====== Almazan Fall Scale: The Almazan Fall scale was performed and score was 85. This is indicative of high risk for falls. History of falling: immediate or within 3 months? Yes Secondary diagnosis: Yes Ambulatory aid: Crutches/cane(s)/walker Intravenous therapy/Heparin lock: Yes Gait/Transferring: Weakness Mental Status: Oriented to own ability/knows own limitations Fall Tailoring Interventions for Patient Safety (TIPS) Fall TIPS initiated with patient: Yes Interventions: Communicate recent fall or risk of harm Bed/Chair Alarm on Assistance out of bed: Call for assistance before getting out of bed Fall TIPS reviewed with patient: Yes Interventions: Communicate recent fall or risk of harm Bed/Chair Alarm on Assistance out of bed: Call for assistance before getting out of bed ====== ENVIRONMENTAL SAFETY MANAGEMENT ====== Implemented safety standards of care: -[place] to unit & environment -Adequate room lighting -Bed in low and locked position -Call light within reach -Personal items within reach -Traffic path in room free of clutter -Non-slip footwear -Upper/half length side rails up for bed mobility -Sensory aids within reach -Encourage patient to utilize sensory support ====== NEUROLOGICAL ====== Neurological Orientation: Person Level of Consciousness (AVPU): Alert = Appears aware of and responsive to the environment on their own. Follows commands, opens eyes spontaneously, and tracks objects. Affect/behavior: Cooperative Calm Masters Agitation Sedation Scale (RASS): 0 Alert and calm ===== ASPIRATION RISK ASSESSMENT AND SWALLOW SCREEN ===== Aspiration Risk(s): Screening complete. No aspiration risk identified. Bedside Swallow Screen not indicated. ====== NEUROMUSCULAR/NEUROVASCULAR EXTREMITIES ASSESSMENT ====== Strength: Telephone Operator Chief Bilateral: Moderate Upper Extremity Bilateral: Full strength Lower Extremity Bilateral: Moves against gravity Sensation: Upper Extremity Sensation Bilateral: Intact Lower Extremity Sensation Bilateral: Intact Temperature: Upper Extremity Temperature Bilateral: Warm Lower Extremity Temperature Bilateral: Warm ====== CARDIOVASCULAR ====== Heart Sounds: Normal (S1S2) Heart Rate/Rhythm (without logging tractor operator swamp): Regular Capillary Refill: All 4 extremities, less than or equal to 3 seconds. Peripheral Pulses: All 4 extremities, 3+ normal. Edema: None ====== RESPIRATORY ====== Respirations: Unlabored Pattern: Regular Breath Sounds Auscultated: Anterior only Right Upper Lobe: Diminished Left Upper Lobe: Diminished Right Middle Lobe: Diminished Right Lower Lobe: Diminished Left Lower Lobe: Diminished Supplemental Oxygen Therapy: Flow rate (liters/min): 2 Method: Nasal cannula ====== GASTROINTESTINAL ====== Last bowel movement: 09/02/2024 Bowel movement reported by patient-unwitnessed Passing flatus Elimination: Continent Abdominal Description: Rounded Palpation: Soft, Non-tender Bowel Sounds: RUQ: Active LUQ: Active RLQ: Active LLQ: Active ====== GENITOURINARY ====== Elimination: Urinary Catheter: Type: External Male Device: Condom catheter size (mm): ===== INTEGUMENTARY/SKIN/WOUND - (INCLUDING CHICHI) SEE NOTE: VAAES SKIN INPECTION/ASSESSMENT ===== ===== INTEGUMENTARY/SKIN/WOUND - (INCLUDING CHICHI) ===== Assessment Type: SKIN REINSPECTION/REASSESSMENT SKIN INSPECTION: Skin Color: Usual for ethnicity Skin Temperature: Warm Skin Moisture: Normal Skin Turgor: Elastic (normal/immediate) Chichi Skin Assessment: The patient's Chichi Scale Score is 13. The patient is at moderate risk for development of pressure ulcers/injuries. Sensory perception -- ability to respond meaningfully to pressure- related discomfort Slightly limited. Moisture -- degree to which skin is exposed to moisture Occasionally moist. Activity -- ability to change and control body position Bedfast. Mobility -- ability to change and control body position Very limited. Nutrition -- usual food intake patterns Probably inadequate. Friction and shear Potential problem. RISK FACTORS THAT INCREASE RISK FOR DEVELOPING PRESSURE INJURIES: The patient/resident has the following: Age over 75 SKIN ALTERATIONS: Pressure Ulcer/Injury Documentation from the past year: Pressure Ulcer Stage 09/03/2024 Stage II Sacrum/coccyx 09/03/2024 Stage II Sacrum/coccyx SKIN ALTERATIONS: Wound Documentation from the past year: No data available for: Skin Integrity - Wound Skin Integrity - Wound Second Skin Integrity - Wound Third Skin Integrity - Wound Fourth Skin Integrity - Wound Fifth Skin Integrity - Wound Additional Pressure Ulcer/Injury: Stage 2: Location(s): Sacrum/coccyx No Edema Wound drainage none. ====== MOBILITY ====== Mobility Status: Moderate assist: Unable to fully extend at least one leg Unable to clear buttocks from sitting surfaces Gait: Unable to ambulate ====== IV LINES ====== Peripheral IV: Line #1: Assessment: Location: Right, Antecubital Gauge: 20 Dressing Condition: Clean, dry, intact Site Condition: No redness, swelling, pain Line Status: Capped Flushed ====== PSYCHOSOCIAL ====== Type of Emotional Support Provided: 1:1 discussion, Ventilation of feelings encouraged /es/ JOSELITO briggs,acrylic fabricator RN Signed: 09/04/2024 00:13 SVITLANA BARAHONA[facility]-CDD [facility] Sep 03, 2024 11:05 PM NURSING E & M NOTE: LOCAL TITLE: NURSING 24 HOUR ORDER VERIFICATION NOTE STANDARD TITLE: NURSING E & M NOTE DATE OF NOTE: SEP 03, 2024@23:05 ENTRY DATE: SEP 03, 2024@23:05:11 AUTHOR: SVITLANA BARAHONA EXP COSIGNER: URGENCY: STATUS: COMPLETED Electronic and hard copy review for orders was completed. Life Sustaining Treatment Orders LST Note Verified Full code /rosette/ JOSELITO briggs,acrylic fabricator RN Signed: 09/03/2024 23:05 SVITLANA BARAHONA-MALKA [facility] Sep 03, 2024 10:59 PM NURSING INPATIENT NOTE: LOCAL TITLE: [facility] NURSING FREQUENT DOCUMENTATION STANDARD TITLE: NURSING INPATIENT NOTE DATE OF NOTE: SEP 03, 2024@22:59 ENTRY DATE: SEP 03, 2024@22:59:12 AUTHOR: SVITLANA BARAHONA EXP COSIGNER: URGENCY: STATUS: COMPLETED Version 2.4 Charting in accordance with [place] APPROVED [place] STANDARD ([facility]) ACUTE INPATIENT/REHABILITATION NURSING ADMISSION SCREENING, ASSESSMENT, AND STANDARDS OF CARE ====== NATIONAL EARLY WARNING SCORE (NEWS) ====== The vital signs below were used for scoring: Temperature: 97.6 Pulse: 86 Blood Pressure: 137/75 Respiration: 18 Pulse Oximetry: 93 The NEWS total is 4. 1. Temperature (C/F): Score = 0 36.1 - 38.0 C (96.9 - 100.4 F) 2. Pulse: Score = 0 51-90 3. Respirations: Score = 0 12-20 4. Blood Pressure (Only Systolic BP, mmHg): Score = 0 111-219 5. Pulse Oximetry: Score = 2 92% - 93% 6. Supplemental oxygen in use: Score = 2 Yes 7. AVPU: Score = 0 Alert Action/Interventions Taken: Repeat NEWS scoring with next vital signs Patient Status: Remains on unit ====== ACTIVITIES OF DAILY LIVING ====== Hygiene ADLs: Oral Care: Non-ventilator patient: Patient teeth brushed: Independently The was educated that poor oral hygiene increases the risk of hospital acquired pneumonia and dental problems like gingivitis and tooth decay. Wilsey was educated using their preferred method and verbalized understanding. /JOSELITO padilla,acrylic fabricator RN Signed: 09/03/2024 23:00 SVITLANA BARAHONA-MALKA [facility] Sep 03, 2024 09:48 PM NURSING INPATIENT NOTE: LOCAL TITLE: [facility] NURSING FREQUENT DOCUMENTATION STANDARD TITLE: NURSING INPATIENT NOTE DATE OF NOTE: SEP 03, 2024@21:48 ENTRY DATE: SEP 03, 2024@21:48:51 AUTHOR: PATRICIA KIRKPATRICK COSIGNER: URGENCY: STATUS: COMPLETED Version 2.4 Charting in accordance with [place] APPROVED [place] STANDARD (ARAES) ACUTE INPATIENT/REHABILITATION NURSING ADMISSION SCREENING, ASSESSMENT, AND STANDARDS OF CARE ====== ACTIVITIES OF DAILY LIVING ====== Hygiene ADLs: Oral Care: Non-ventilator patient: Patient dentures/partial plates cleaned: With assistance /rosette/ PATRICIA CHILDERS Signed: 09/03/2024 21:49 KAYAVINCEFREDDIE BELLOD [facility] Sep 03, 2024 05:08 PM NURSING INPATIENT NOTE: LOCAL TITLE: [facility] NURSING FREQUENT DOCUMENTATION STANDARD TITLE: NURSING INPATIENT NOTE DATE OF NOTE: SEP 03, 2024@17:08 ENTRY DATE: SEP 03, 2024@17:08:11 AUTHOR: J LUIS CERON EXP COSIGNER: URGENCY: STATUS: COMPLETED Version 2.4 Charting in accordance with [place] APPROVED [place] STANDARD (ARAES) ACUTE INPATIENT/REHABILITATION NURSING ADMISSION SCREENING, ASSESSMENT, AND STANDARDS OF CARE ====== NATIONAL EARLY WARNING SCORE (NEWS) ====== The following vital measurements were used to complete the NEWS. Measurement DT TEMP PULSE RESP BP POx F(C) (L/MIN)(%) 09/03/2024 16:38 98.5(36.9) 81 15 129/76 94[2.0][] The NEWS total is 3. 1. Temperature (C/F): Score = 0 36.1 - 38.0 C (96.9 - 100.4 F) 2. Pulse: Score = 0 51-90 3. Respirations: Score = 0 12-20 4. Blood Pressure (Only Systolic BP, mmHg): Score = 0 111-219 5. Pulse Oximetry: Score = 1 94% - 95% 6. Supplemental oxygen in use: Score = 2 Yes 7. AVPU: Score = 0 Alert Patient Status: Remains on unit /rosette/ JOSELITO Loza, acrylic fabricator RN Signed: 09/03/2024 17:10 J LUIS CEROND [facility] Sep 03, 2024 12:45 PM NEUROLOGY E & M CONSULT: LOCAL TITLE: NEUROLOGY CONSULT RESPONSE STANDARD TITLE: NEUROLOGY E & M CONSULT DATE OF NOTE: SEP 03, 2024@12:45 ENTRY DATE: SEP 03, 2024@12:46:21 AUTHOR: JARRED TREVIZO COSIGNER: SISSY BASHIR URGENCY: STATUS: COMPLETED NEUROLOGY CONSULT RESPONSE Has ADDENDA CC: Concern for MS flare HPI: Patient is a 79 year old Wilsey transferred from [facility] to [facility] on September 03, 2023 and currently admitted to medicine service for Chronic weakness and there is suspicion for new onset Heart failure with elevated ProBNP. Patient has a PMH of GERD, multiple sclerosis, prostate cancer, T2DM, HLD, HTN, COPD, Left eye macular degeneration. He has been having chronic weakness of his lower extremities (left more than right at baseline) and mostly non ambulatory at baseline. Per , patient broke his left leg in December, and has been bed ridden since then. He was mostly in his hospital bed since then, would take 3-5 steps with walker to shift to his lift chair and spend most of the day in it. He was able to go to the restroom (20 steps around 5 times a day) at baseline. denies any memory issues at baseline reported that the patient had Pneumonia and was treated for UTI during recent hospitalization at [facility]. There were concerns for MS and patient received high dose steroids for 3 days per (however no records to verify this). He was then discharged to rehab. Per the , no imaging studies for head or spine were performed at [facility]. Patient was at his rehab when he had a xray which revealed Pneumonia, there was a near syncopal event without LOC and patient was again referred to OSH. requested patient to be transferred to [facility] for further care. reports that patient received his diagnosis of MS back in 2015 in [place] and was being followed by Dr.David Davila from [facility] for MS. She reports that patient initial symptoms at the time of diagnosis were repetitive falls, weakness in his legs ( left > right), dragging of left leg and inability to walk long distances. He cannot see at baseline from left eye due to Macular degeneration. reports that patient has been on Ocrevus since atleast 4 years, last received it around February 2024 when they were evaluated by Dr. Davila. He then retired in Mar 2024 and they used to do 6 months follow up with him. Patient has tolerated Ocrevus well except for side effect of diarrhea after the infusion, getting Ocrevus every 6 months. reports that the patient has not received any head/spine imaging in the past 3-4 years. She denied patient having new symptoms from MS over time- focal weakness, numbness in extremities, shooting pains, painful eye movements. She reports that patient has some choking at baseline since past few months. WORK UP - LABS at [facility]- Anemia 9.5 , Hyponatremia 129. UA with budding yeast 4+ and 169 WBC, 26 RBC, large leucocyte esterase - CT head AUG 29, 2024 No acute intracranial pathology, sequelae of remote ischemic small-vessel disease. - CXR September 03, 2024 with interstitial densities seen diffusely throughout both lung yañez and confluence airspace opacities in both lung bases. Bibasilar pneumonia possibly from aspiration would have to be considered. - ECHO ordered and pending - LAbs at OSH with PROBNP>1600 (new for him) - No MRI to review ROS:14 point ROS obtained and negative except as above. PMH: Active problems - Computerized Problem List is the source for the followin. Gastroesophageal reflux disease without esophagitis 2. Constipation 3. Multiple sclerosis 4. Age related macular degeneration 5. Closed fracture of shaft of right fibula 6. Incontinence 7. Type 2 diabetes mellitus 8. Essential hypertension 9. Hyperlipidemia 10. Carcinoma of prostate 11. Pain of right knee joint ALLERGIES: Patient has answered NKA MEDS: ACTIVE OUTPATIENT PRESCRIPTIONS - NONE FOUND VITALS: Tc: 98.0 F [36.7 C] (09/03/2024 09:07) HR: 94 (09/03/2024 09:07) RR: 15 (09/03/2024 09:07) BP: 121/71 (09/03/2024 09:07) SpO2: SEP 03, 2024@09:07 -- PULSE OXIMETRY: 90 SEP 03, 2024@09:07 -- PULSE OXIMETRY: 90 via ROOM AIR) PHYSICAL EXAM GENERAL : laying in bed, in NAD HEAD/NECK: atraumatic, normocephalic EYES : EOMI, anicteric sclera, PERRL ENMT : Moist mucus membranes w/o lesion, nares patent CVS : has peripheral edema in lower extremities PULM : on NASAL OXYGEN GI : nondistended DERM : no noted rash, bruising, bleeding MSK : moves upper extremities spontaneously PSYCH : appears frustrated NEUROLOGICAL: Mental Status: Alert, orietned to self, not oriented to place, not willing to coopearte for exam Speech: Intact Articulation, reports he wants to be left alone CN 2-12: II - Cannot see with left eye at baseline III, IV, - PERRLA, EOMI V - Facial sensation intact VII - Brow raise and smile symmetrical VIII - Auditory acuity intact XII - Tongue protrudes midline Motor: RUE: able to lift antigravity LUE: able to lift antigravity RLE: JULIAN as patient not willing to participate for exam LLE: JULIAN as patient not willing to participate for exam Sensory: intact light touch throughout, withdraws to pain in all extremities Reflexes: 2+ throughout. Flexor plantar response bilaterally. Coordination: unable to assess Gait/Station: unable to assess LABS: WBC: 6.9 K/cmm (09/03/2024 05:00) H HCT: 0 PLT: 0 MCV: 83.6 fL (09/03/2024 05:00) RDW: 14.8 % (09/03/2024 05:00) INR: ____ PTT: ____ SODIUM: 129 mmol/L L (09/03/2024 05:00) POTASSIUM: 4.2 mmol/L (09/03/2024 05:00) CHLORIDE: 99 mmol/L (09/03/2024 05:00) CO2: 21 mmol/L L (09/03/2024 05:00) BUN: 12 mg/dL (09/03/2024 05:00) CREATININE: Collection DT Specimen Test Name Result Units Ref Range 09/03/2024 05:00 PLASMA!! CREATININE 0.82 mg/dL 0.72 - 1.25 !! Indicates COMMENTS AVAILABLE...Refer to Interim Lab Report. CALCIUM: 8.1 mg/dL L (09/03/2024 05:00) ANION GAP: 9.0 mEq/L (09/03/2024 05:00) AST: 11 U/L (08/29/2024 20:32) ALT: 15 U/L (08/29/2024 20:32) ALK PHOS: 97 U/L (08/29/2024 20:32) BILIRUBIN: ALBUMIN: 2.9 g/dL L (08/29/2024 20:32) PROTEIN: 5.9 g/dL L (08/29/2024 20:32) HgA1C: Collection DT Specimen Test Name Result Units Ref Range 09/03/2024 05:00 BLOOD HGB 9.5 L g/dL 14.0 - 18.0 IMAGING: Unable to find the following Radiology procedures: MRI BRAIN W/O CONTRAST FOR THE PAST 2 YEARS MRI BRAIN W/CONTRAST FOR THE PAST 2 YEARS MRI BRAIN W & W/O FOR THE PAST 2 YEARS NO PRIOR C-SPINE MRI EXAMS W/IN 5 YRS NO PRIOR L-SPINE MRI EXAMS W/IN 5 YRS NO PRIOR T-SPINE MRI EXAMS W/IN 5 YRS SII - Alondra Image Impression Date Procedure CPT Status Case # 08/29/2024 CT HEAD W/O CONT [id number] Verified 61 No acute intracranial pathology. NO PRIOR MRI HEAD EXAMS W/IN 5 YRS Radiology Report Data Exam Date: AUG 29, 2024@20:28 Procedure: CT HEAD W/O CONT -- Impression Text -- No acute intracranial pathology. End Radiology Report Data NO PRIOR CT L-SPINE WITHIN PAST [address] T SPINE WITHIN PAST 5 YEARS NO 'NEUROLOGY EEG CONSULT RESPONSE' NOTES FOUND NO 'NEUROLOGY EMG/NCV CONSULT RESPONSE' NOTES FOUND A/P: Patient is a 79 year old Wilsey transferred from [facility] to [facility] on September 03, 2023 and currently admitted to medicine service for Chronic weakness and there is suspicion for new onset Heart failure with elevated ProBNP, concern for pneumonia and UTI. Patient has a PMH of GERD, multiple sclerosis, prostate cancer, T2DM, HLD, HTN, COPD, Left eye macular degeneration. He has been having chronic weakness of his lower extremities (left more than right at baseline) and mostly non ambulatory at baseline. Per , patient broke his left leg in December, and has been bed ridden since then. He was mostly in his hospital bed since then, would take 3-5 steps with walker to shift to his lift chair and spend most of the day in it. He was able to go to the restroom (20 steps around 5 times a day) at baseline. denies any memory issues at baseline # history of MS # Concern for MS flare - reports that patient received his diagnosis of MS back in 2015 in [place] and was being followed by Dr.David Davila from [facility] for MS. - She reports that patient initial symptoms at the time of diagnosis were repetitive falls, weakness in his legs ( left > right), dragging of left leg and inability to walk long distances. He cannot see at baseline from left eye due to Macular degeneration. - reports that patient has been on Ocrevus since atleast 4 years, last received it around February 2024 when they were evaluated by Dr. Davila. He then retired in Mar 2024 and they used to do 6 months follow up with him. Patient has tolerated Ocrevus well except for side effect of diarrhea after the infusion, getting Ocrevus every 6 months. - reports that the patient has not received any head/spine imaging in the past 3-4 years. - She denied patient having new symptoms from MS over time- focal weakness, numbness in extremities, shooting pains, painful eye movements. She reports that patient has some choking at baseline since past few months. - We do not have OSH records or imaging to review as of now PLAN - Current clinical presentation likely in the setting of medical condition and infections. - We recommend getting MRI head w and wo contrast and MRI C spine w and wo contrast for further evaluation. - Patient currently not a candidate for immunosuppressive therapy due to ongoing infections. - We recommend treating underlying etiologies per primary team - We will try to arrange OP follow up with if family agreeable. - We will continue to follow Staffed with , who agrees with the above plan. Please call the director of strategic communications neurology resident with any questions. Jarred Trevizo Adult Neurology PGY2 /rosette/ JARRED TREVIZO Resident Signed: 09/03/2024 17:43 /rosette/ SISSY BASHIR Cosigned: 09/04/2024 08:34 09/04/2024 ADDENDUM STATUS: COMPLETED I discussed the diagnostic evaluation and proposed therapeutic management of Mr. Chung ([id number]) with the consulting with Neurology resident physician, Dr. Jarred Trevizo on 09/03/2024. I reviewed and approved the content of the attached Neurology Consult Response written by Dr. Trevizo on that date. /rosette/ SISSY BASHIR Signed: 09/04/2024 08:34 JARRED TREVIZO [facility] Sep 03, 2024 12:18 PM ADMINISTRATIVE NOTE: LOCAL TITLE: DEMOGRAPHIC NOTE STANDARD TITLE: ADMINISTRATIVE NOTE DATE OF NOTE: SEP 03, 2024@12:18 ENTRY DATE: SEP 03, 2024@12:19 AUTHOR: RY ROSE EXP COSIGNER: URGENCY: STATUS: COMPLETED Residential Address: Permanent Address: Temporary Address: Email: Phone #s: Insurance: NOK 1: NOK 2: Designee: Emergency Contact 1: Emergency Contact 2: verified correct per [facility] notes /rosette/ HEENA Shore Drilling Engineer on Duty (AOD) Signed: 09/03/2024 12:19 RY ROSE [facility] Sep 03, 2024 10:44 AM NURSING DISCHARGE PLAN: LOCAL TITLE: DISCHARGE PLANNING ASSESSMENT STANDARD TITLE: NURSING DISCHARGE PLAN DATE OF NOTE: SEP 03, 2024@10:44 ENTRY DATE: SEP 03, 2024@10:44:15 AUTHOR: BINH SONI EXP COSIGNER: URGENCY: STATUS: COMPLETED Admission Diagnosis: Weakness due to presumed new onset heart failure, type unspecified Anticipated discharge destination: Return to [facility] Admitted to following team: Stanton Resendiz Full assessment indicated Spoke with: Patient Other: michael Jovel Phone number: [phone] Current Services: [facility] Patient lives: With Spouse Does patient manage their own medications: No Who Does? spouse Does patient take all medicines as prescribed? Yes Is patient independent with dressing and bathing? No Who assists? spouse Are bedrooms and bathrooms accessible to patient: Yes [facility] Following Medical Supplies patient confirms to have in working condition: Cane , Walker, Rollator Equipment needs: None identified at this time. Tobacco/Nicotine: Final Tobacco/Nicotine Assessment for this Admission Do you currently or have you ever used tobacco or nicotine products? Former- tobacco user Does patient have home oxygen? No Does patient any wound care needs? No STRIDE: N/A: PT/OT to be consulted Comments: Patients son confirmed that patient lives with who assits with cares at home. Per Luis Manuel (patients son) patient has not been able to bear weight with his knee that has been bothering him, in order for patient to be able to safely return home he must be able to stand and ambulate short distances. Plan for d/c is to return to [facility] /rosette/ JOSELITO DUARTE, RN INPATIENT PROCESSING LEAD// Signed: 09/03/2024 10:53 BINH SONI[facility]MALKA [facility] Sep 03, 2024 10:36 AM INTERNAL MEDICINE NOTE: LOCAL TITLE: MEDICINE SOAP NOTE STANDARD TITLE: INTERNAL MEDICINE NOTE DATE OF NOTE: SEP 03, 2024@10:36 ENTRY DATE: SEP 03, 2024@10:36:33 AUTHOR: FRANCK TURNER EXP COSIGNER: PINKY NGUYEN URGENCY: STATUS: COMPLETED Overnight: Admitted overnight, NAEO SUBJECTIVE: Son present at bedside, he provides additional history. Wilsey has no complaints this morning, tells me he is sleepy and would like to rest more. ROS: Reviewed and negative unless noted otherwise above. OBJECTIVE: VITALS: Tc: 98.0 F [36.7 C] (09/03/2024 09:07) HR: 94 (09/03/2024 09:07) RR: 15 (09/03/2024 09:07) BP: 121/71 (09/03/2024 09:07) SpO2: SEP 03, 2024@09:07 -- PULSE OXIMETRY: 90 SEP 03, 2024@09:07 -- PULSE OXIMETRY: 90 via ROOM AIR) PHYSICAL EXAM: GENERAL : lying in bed, in NAD. Son at bedside. HEENT: anicteric sclera, moist mucus membranes. CVS : RRR w/ normal S1 and S2. +1 peripheral edema to LE bilaterally. PULM : Normal work of breathing. Lungs with mild basilar crackles, poor effort. GI : +BS, soft, nontender, nondistended. DERM : no noted rash, bruising, bleeding, wounds. MSK : No joint swelling or deformity. NEURO : CN II-XII grossly intact, AAO x3. No focal deficits. Moves all extremities spontaneously. PSYCH : mood & affect appropriate. MEDS: Active Inpatient Medications (including Supplies): Active Inpatient Medications Status 1) ASPIRIN TAB,EC 81MG PO DAILY ACTIVE Indication: FOR HEART 2) ATORVASTATIN TAB 20MG PO QHS ACTIVE Indication: FOR CHOLESTEROL 3) BISOPROLOL TAB 5MG PO DAILY ACTIVE Indication: FOR BLOOD PRESSURE/HEART 4) DEXTROSE 15GM/32ML PKT GEL,ORAL 1 PACKET (15GM) PO Q15MIN ACTIVE PRN Give one tube (15gm) for BG 51-70mg/dl. Perform fingerstick 15 minutes after treatment; notify treating provider. Indication: FOR LOW BLOOD SUGAR 5) DEXTROSE 15GM/32ML PKT GEL,ORAL 2 PACKETS (30GM) PO Q15MIN ACTIVE PRN Give two tubes (30g) for BG 50 mg/dL and below. Perform fingerstick 15 minutes after treatment; notify treating provider. Indication: FOR LOW BLOOD SUGAR 6) DEXTROSE 50% INJ,SOLN 25ML (1/2 AMP/SYRINGE) IV Q15MIN PRN ACTIVE Give 50% dextrose 25 mL IV (over 3 min) STAT for BG of 51 - 70 mg/dL or NPO. Perform fingerstick 15 minutes after treatment; notify treating provider. Indication: FOR LOW BLOOD SUGAR 7) DEXTROSE 50% INJ,SOLN 50ML (1 AMP/SYRINGE) IV Q15MIN PRN ACTIVE Give 50% dextrose 50 mL IV (over 3 min) STAT for BG of 50 mg/dL and below or unresponsive or NPO. Perform fingerstick 15 minutes after treatment; notify treating provider. Indication: FOR LOW BLOOD SUGAR 8) DICLOFENAC NA 1% GEL,TOP 2 GRAM STRIP TOP Q6H PRN ACTIVE Indication: FOR PAIN 9) ENOXAPARIN (LMW HEPARIN) INJ 40MG/0.4ML SQ Q24H Instructions ACTIVE too long. See order details for full text. Indication: TO THIN BLOOD 10) FAMOTIDINE (famOTidine) TAB 20MG PO BID PRN ACTIVE Indication: FOR STOMACH 11) GABAPENTIN CAP,ORAL 100MG PO QID ACTIVE Indication: FOR NERVE PAIN 12) GLUCAGON INJ 1MG/1ML SC Q15MIN PRN Instructions too long. ACTIVE See order details for full text. Indication: FOR LOW BLOOD SUGAR 13) INSULIN ASPART (NOVOLOG) INJ CORRECTION DOSE:SEE COMMENTS SQ ACTIVE AT MEAL END Give after pt fed WITH scheduled meal/prandial insulin(if ordered) If premeal FSBS 131-180=1 unit; 181-230=2 unit; 231-280=3 unit; 281-330=4 unit; >330=5 unit. DO NOT HOLD for NPO. Indication: FOR BLOOD SUGAR 14) TAMSULOSIN (FLOMAX) CAP,ORAL 0.8MG PO QPM ACTIVE Indication: FOR PROSTATE DATA: WBC: 6.9 K/cmm (09/03/2024 05:00) H HCT: 0 PLT: 0 MCV: 83.6 fL (09/03/2024 05:00) RDW: 14.8 % (09/03/2024 05:00) INR: ____ PTT: ____ SODIUM: 129 mmol/L L (09/03/2024 05:00) POTASSIUM: 4.2 mmol/L (09/03/2024 05:00) CHLORIDE: 99 mmol/L (09/03/2024 05:00) CO2: 21 mmol/L L (09/03/2024 05:00) BUN: 12 mg/dL (09/03/2024 05:00) CREATININE: Collection DT Specimen Test Name Result Units Ref Range 09/03/2024 05:00 PLASMA!! CREATININE 0.82 mg/dL 0.72 - 1.25 !! Indicates COMMENTS AVAILABLE...Refer to Interim Lab Report. CALCIUM: 8.1 mg/dL L (09/03/2024 05:00) ANION GAP: 9.0 mEq/L (09/03/2024 05:00) AST: 11 U/L (08/29/2024 20:32) ALT: 15 U/L (08/29/2024 20:32) ALK PHOS: 97 U/L (08/29/2024 20:32) BILIRUBIN: ALBUMIN: 2.9 g/dL L (08/29/2024 20:32) PROTEIN: 5.9 g/dL L (08/29/2024 20:32) HgA1C: Collection DT Specimen Test Name Result Units Ref Range 09/03/2024 05:00 BLOOD HGB 9.5 L g/dL 14.0 - 18.0 IMAGING: A/P: 79M with PMH COPD presents for chronic weakness, new oxygen requirement after IV fluids 24h prior. #Weakness due to presumed new onset heart failure, type unspecified -Received IV Lasix 40mg at OSH -No TTE on file, BNP >1600 -Etiology is most likely new heart failure after 3L of fluids, less likely infectious causes given normal WBC and afebrile, less likely acute MS flare given baseline neuro exam PLAN: -Strict I/O -TTE -UA with reflex to r/o UTI as etiology of weakness pending, resume methenamine if negative -BCx drawn, will follow -CXR to eval volume status pending - Will review CT chest from OSH once uploaded, disc sent to rads -Was receiving Levaquin, will hold on abx given no clear infectious source -Hold on further diuresis until CXR results, if fluid overload will diurese with Lasix 80mg IV #Multiple sclerosis -Imaging: CT head 08/29/24: Periventricular decreased attenuation likely sequelae of remote ischemic small-vessel disease. -Receives outpatient Ocrelizumab infusions for MS PLAN: -No concern for acute flare #Type II diabetes mellitus c/b neuropathy -On metformin at home -A1c 5.6 09/03 PLAN: -Hold metformin -Gabapentin tab 100mg four times a day for neuropathy -Start CF SSI and Accu-Chek's CHRONIC MEDICAL CONDITIONS: GERD: home famotidine 20mg tab twice a day as needed Prostate cancer: receives leuprolide (eligard) 45mg(6 month)LA inj as outpatient, on home silodosin 8mg oral cap daily will convert to tamsulosin 0.8mg daily, resume methenamine Hippurate 1gm tab twice a day for UTI px CAD: aspirin 81mg chew tab daily HLD: atorvastatin calcium tab 20mg at bedtime HTN: bisoprolol fumarate 5mg tab daily, reportedly on lisinopril, hold for normotension FEN/DVT Ppx: F- PO E- Monitor and replete N- Carb 2 DVT Ppx: Prophylactic lovenox Code Status: Full Code Dispo: Acute Franck Turner MD PGY1 Internal Medicine Pager: [phone] /es/ FRANCK TURNER PGY1 Signed: 09/03/2024 11:10 /es/ PINKY NGUYEN HOSPITALIST Cosigned: 09/03/2024 13:46 FRANCK TURNER [place] Sep 03, 2024 10:25 AM [facility] NOTE: LOCAL TITLE: HHN SKILLED HOME CARE NOTE STANDARD TITLE: [facility] NOTE DATE OF NOTE: SEP 03, 2024@10:25 ENTRY DATE: SEP 03, 2024@10:25:34 AUTHOR: ANNIE PRIDE EXP COSIGNER: URGENCY: STATUS: COMPLETED HHN SKILLED HOME CARE NOTE Has ADDENDA Home Health Agency: [email or web address] [place] Notification: Jenny at home health agency informed of 's admission to [facility]. Home Health Certification Period End Date: 09.15.24 Current Home Health Services and Care Coordination Needs: PT /es/ Annie Pride RN, MSN, WOCN ORDER EXPEDITER Agriculture Worker Signed: 09/03/2024 10:27 09/10/2024 ADDENDUM STATUS: COMPLETED Home health agency notified of 's Discharge Disposition: [facility] /es/ Annie Pride RN, MSN, WOCN ORDER EXPEDITER Agriculture Worker Signed: 09/10/2024 07:53 ANNIE PRIDE-D [facility] Sep 03, 2024 09:30 AM NURSING INPATIENT NOTE: LOCAL TITLE: [facility] ACUTE INPATIENT NSG SHIFT ASSESSMENT STANDARD TITLE: NURSING INPATIENT NOTE DATE OF NOTE: SEP 03, 2024@09:30 ENTRY DATE: SEP 03, 2024@12:35:24 AUTHOR: J LUIS CERON EXP COSIGNER: URGENCY: STATUS: COMPLETED Version 2.2 Charting in accordance with [place] APPROVED [place] STANDARD (ARAES) ACUTE INPATIENT/REHABILITATION NURSING ADMISSION SCREENING, ASSESSMENT, AND STANDARDS OF CARE ====== ASSESSMENT ====== ====== HANDOFF ====== Bedside report and handoff completed Safety check completed ====== PAIN ASSESSMENT ====== Patient's acceptable pain goal: 0 No pain Are you currently experiencing pain? No: ====== ALMAZAN FALL SCALE & TIPS PROGRAM ====== Almazan Fall Scale: The Almazan Fall scale was performed and score was 95. This is indicative of high risk for falls. History of falling: immediate or within 3 months? Yes Secondary diagnosis: Yes Ambulatory aid: None/bedrest/nurse assist Intravenous therapy/Heparin lock: Yes Gait/Transferring: Impaired Mental Status: Overestimates/forgets limitations Fall Tailoring Interventions for Patient Safety (TIPS) Fall TIPS reviewed with patient: Yes Interventions: Communicate recent fall or risk of harm Bed/Chair Alarm on ====== ENVIRONMENTAL SAFETY MANAGEMENT ====== Implemented safety standards of care: -[place] to unit & environment -Adequate room lighting -Bed in low and locked position -Call light within reach -Personal items within reach -Traffic path in room free of clutter -Non-slip footwear -Upper/half length side rails up for bed mobility -Sensory aids within reach -Encourage patient to utilize sensory support Additional safety measures: Alarms: Bed Caregiver/family in attendance Close to nurses station Increased frequency of rounding ====== NEUROLOGICAL ====== Neurological Orientation: Person Level of Consciousness (AVPU): Alert = Appears aware of and responsive to the environment on their own. Follows commands, opens eyes spontaneously, and tracks objects. 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 Operator Chief Bilateral: Moderate Upper Extremity Bilateral: Full strength Lower Extremity Bilateral: Moves against some resistance Sensation: Upper Extremity Sensation Bilateral: Intact Lower Extremity Sensation Bilateral: Intact Temperature: Upper Extremity Temperature Bilateral: Warm Lower Extremity Temperature Bilateral: Warm ====== CARDIOVASCULAR ====== Heart Sounds: Normal (S1S2) Heart Rate/Rhythm (without logging tractor operator swamp): Regular Capillary Refill: All 4 extremities, less than or equal to 3 seconds. Peripheral Pulses: All 4 extremities, 3+ normal. Edema: None ====== RESPIRATORY ====== Respirations: Unlabored Pattern: Regular Breath Sounds Auscultated: Anterior only Right Upper Lobe: Diminished Left Upper Lobe: Diminished Right Middle Lobe: Diminished Right Lower Lobe: Diminished Left Lower Lobe: Diminished Symptoms: Shortness of breath: With exertion Lying flat Comment: Supplemental Oxygen Therapy: Flow rate (liters/min): 2 Method: Nasal cannula ====== GASTROINTESTINAL ====== Last bowel movement: 09/02/2024 Bowel movement reported by patient-unwitnessed Elimination: Incontinent Abdominal Description: Protuberant (central obesity) Palpation: Soft, Non-tender Bowel Sounds: RUQ: Active LUQ: Active RLQ: Active LLQ: Active ====== GENITOURINARY ====== Elimination: Urinary catheter Urinary Catheter: Type: External Male Device: Condom catheter size (mm): ===== INTEGUMENTARY/SKIN/WOUND - (INCLUDING CHICHI) SEE NOTE: VAAES SKIN INPECTION/ASSESSMENT ===== ===== INTEGUMENTARY/SKIN/WOUND - (INCLUDING CHICHI) ===== Assessment Type: SKIN REINSPECTION/REASSESSMENT SKIN INSPECTION: Skin Color: Usual for ethnicity Skin Temperature: Warm Skin Moisture: Normal Skin Turgor: Elastic (normal/immediate) Chichi Skin Assessment: The patient's Chichi Scale Score is 12. The patient is at high risk for development of pressure ulcers/injuries. Sensory perception -- ability to respond meaningfully to pressure- related discomfort Slightly limited. Moisture -- degree to which skin is exposed to moisture Occasionally moist. Activity -- ability to change and control body position Bedfast. Mobility -- ability to change and control body position Very limited. Nutrition -- usual food intake patterns Probably inadequate. Friction and shear Problem. INTERVENTIONS: New or changed pressure ulcer/injury interventions or medical condition. Education: Provide patient/caregiver education regarding causes and prevention of pressure ulcers/injuries. Provide patient/caregiver education regarding treatment plan for pressure ulcers/injuries. Teach patient/caregiver importance of changing position frequently for pressure ulcer/injury prevention. Provide patient/caregiver with education materials. Pressure-Redistribution measures: Apply heel/elbow pads Avoid turning/position on side at greater than 30 degree angle Encourage small, frequent position changes Turn and reposition every two hours while in bed Use pillows (or other pressure relieving devices) to separate pressure areas Maximize mobilization: Encourage activity as tolerated Perform range of motion exercises when turning/repositioning Manage moisture: Apply external collection device (condom catheter, etc.) Apply protective barrier ointment Instruct patient/resident/caregiver to request assistance as needed Maintain clean and dry skin Manage nutrition: Encourage eating and assist with meals Monitor fluid/food intake Offer liquids every two hours when turning patient or as needed Offer ordered supplements Provide or encourage oral care prn Provide tray set-up and other assistance as needed Reduce friction and shear: Elevate head of bed for meals, then lower within one hour after eating (unless contraindicated) Keep head of bed at or below 30 degrees when not eating Raise the knee when elevating head of bed Use of appropriate safe patient handling device to lift up in bed or turn (trapeze, sling, etc.) RISK FACTORS THAT INCREASE RISK FOR DEVELOPING PRESSURE INJURIES: The patient/resident has the following: Age over 75 Device(s): (nasogastric tubes, oxygen tubing, urinary catheters, cell phone etc.) Comment: catheter tubing SKIN ALTERATIONS: Pressure Ulcer/Injury Documentation from the past year: Pressure Ulcer Stage 09/03/2024 Stage II Sacrum/coccyx SKIN ALTERATIONS: Wound Documentation from the past year: No data available for: Skin Integrity - Wound Skin Integrity - Wound Second Skin Integrity - Wound Third Skin Integrity - Wound Fourth Skin Integrity - Wound Fifth Skin Integrity - Wound Additional Localized abnormality: Moisture Associated Skin Damage (MASD) (inflammation and erosion of the skin caused by urine, stool, perspiration, mucus, saliva and wound exudate, etc.): Location(s): groin Pressure Ulcer/Injury: Stage 2: Location(s): Sacrum/coccyx No Edema Wound drainage none. ====== ACTIVITIES OF DAILY LIVING ====== Hygiene ADLs: Dressing: Upper Body: Moderate assist Lower Body: Moderate assist Eating: Moderate assist Oral Care: Non-ventilator patient: Patient dentures/partial plates cleaned: With assistance The Wilsey was educated that poor oral hygiene increases the risk of hospital acquired pneumonia and dental problems like gingivitis and tooth decay. was educated using their preferred method and verbalized understanding. Toileting: Dependent ====== MOBILITY ====== Mobility Status: Moderate assist: Unable to clear buttocks from sitting surfaces Gait: Unable to ambulate ====== IV LINES ====== Peripheral IV: Line #1: Assessment: Location: Right, Antecubital Gauge: 20 Dressing Condition: Clean, dry, intact Site Condition: No redness, swelling, pain Line Status: Capped Flushed ====== PSYCHOSOCIAL ====== Type of Emotional Support Provided: 1:1 discussion, Treatment discussion, Ventilation of feelings daniel /rosette/ JOSELITO Loza, acrylic fabricator RN Signed: 09/03/2024 12:50 J LUIS CERON[facility] Sep 03, 2024 09:15 AM NURSING INPATIENT NOTE: LOCAL TITLE: [facility] NURSING FREQUENT DOCUMENTATION STANDARD TITLE: NURSING INPATIENT NOTE DATE OF NOTE: SEP 03, 2024@09:15 ENTRY DATE: SEP 03, 2024@09:15:28 AUTHOR: J LUIS CERON EXP COSIGNER: URGENCY: STATUS: COMPLETED Version 2.4 Charting in accordance with [place] APPROVED [place] STANDARD (ARAES) ACUTE INPATIENT/REHABILITATION NURSING ADMISSION SCREENING, ASSESSMENT, AND STANDARDS OF CARE ====== NATIONAL EARLY WARNING SCORE (NEWS) ====== The following vital measurements were used to complete the NEWS. Measurement DT TEMP PULSE RESP BP POx F(C) (L/MIN)(%) 09/03/2024 09:07 98.0(36.7) 94 15 121/71 90 The NEWS total is 6. 1. Temperature (C/F): Score = 0 36.1 - 38.0 C (96.9 - 100.4 F) 2. Pulse: Score = 1 91-110 3. Respirations: Score = 0 12-20 4. Blood Pressure (Only Systolic BP, mmHg): Score = 0 111-219 5. Pulse Oximetry: Score = 3 91% or lower 6. Supplemental oxygen in use: Score = 2 Yes 7. AVPU: Score = 0 Alert Reason for admission is low oxygenation, will reassess vitals and NEWS in 30 minutes. /rosette/ JOSELIOT Loza, acrylic fabricator RN Signed: 09/03/2024 09:17 J LUIS CERON [facility] Sep 03, 2024 08:32 AM NURSING E & M NOTE: LOCAL TITLE: NURSING 24 HOUR ORDER VERIFICATION NOTE STANDARD TITLE: NURSING E & M NOTE DATE OF NOTE: SEP 03, 2024@08:32 ENTRY DATE: SEP 03, 2024@08:32:57 AUTHOR: J LUIS CERON EXP COSIGNER: URGENCY: STATUS: COMPLETED Electronic and hard copy review for orders was completed. Life Sustaining Treatment Orders LST Note Verified Comments: FULL CODE /rosette/ JOSELITO Loza, acrylic fabricator RN Signed: 09/03/2024 08:33 J LUIS CERON [facility] Sep 03, 2024 05:26 AM NURSING INPATIENT NOTE: LOCAL TITLE: [facility] NURSING FREQUENT DOCUMENTATION STANDARD TITLE: NURSING INPATIENT NOTE DATE OF NOTE: SEP 03, 2024@05:26 ENTRY DATE: SEP 03, 2024@05:26:30 AUTHOR: SRINIVAS DAVISIGNER: URGENCY: STATUS: COMPLETED Version 2.4 Charting in accordance with [place] APPROVED [place] STANDARD (ARAES) ACUTE INPATIENT/REHABILITATION NURSING ADMISSION SCREENING, ASSESSMENT, AND STANDARDS OF CARE ====== NATIONAL EARLY WARNING SCORE (NEWS) ====== The following vital measurements were used to complete the NEWS. Measurement DT TEMP PULSE RESP BP POx F(C) (L/MIN)(%) 09/03/2024 04:41 98.9(37.2) 92 20 124/71 91 The NEWS total is 4. 1. Temperature (C/F): Score = 0 36.1 - 38.0 C (96.9 - 100.4 F) 2. Pulse: Score = 1 91-110 3. Respirations: Score = 0 12-20 4. Blood Pressure (Only Systolic BP, mmHg): Score = 0 111-219 5. Pulse Oximetry: Score = 3 91% or lower 6. Supplemental oxygen in use: Score = 0 No 7. AVPU: Score = 0 Alert Patient Status: Remains on unit /es/ Srinivas Davis, acrylic fabricator RN Signed: 09/03/2024 05:27 SRINIVAS DAVIS [facility] Sep 03, 2024 05:09 AM NURSING E & M NOTE: LOCAL TITLE: NURSING PLAN OF CARE STANDARD TITLE: NURSING E & M NOTE DATE OF NOTE: SEP 03, 2024@05:09 ENTRY DATE: SEP 03, 2024@05:10:07 AUTHOR: SRINIVAS DAVIS COSIGNER: URGENCY: STATUS: COMPLETED NURSING PLAN OF CARE Has ADDENDA PROBLEM: Skin Integrity For Skin Plan of Care see last Skin Assessment/Reassessment Note The Daily Plan was reviewed with patient or family. DIABETES: Target date for review or resolution of problem: Aug Target date must be no less than 1 days and no greater than 3 days. Plan of care must be reviewed every shift. 2. Imbalanced Nutrition, CHO, Fat Protein Intake: Related to: Poor nutritional intake, R/T nutritional balance. Interventions: Monitor lab results Evaluation: Patient's blood sugar at target FALLS/INJURY POTENTIAL: Fall risk related to Unfamiliar environment Target date for review or resolution of problem: Aug Target date must be no less than 1 days and no greater than 3 days. Plan of care must be reviewed every shift. 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 Plan of care must be reviewed every shift. Goals: Afebrile Interventions: Monitor Vital Signs /es/ Srinivas Davis, acrylic fabricator RN Signed: 09/03/2024 05:11 09/03/2024 ADDENDUM STATUS: COMPLETED Plan of Care was reviewed with patient/significant other. DIABETES: Goal not met(explain why) chronic condition Continue problem New target date (if applicable): Aug FALLS/INJURY POTENTIAL: Goal not met(explain why) limited mobility, unfamiliar environment Continue problem New target date (if applicable): Aug RISK FOR INFECTION: Goal not met(explain why) PIV access Continue problem New target date (if applicable): Aug /es/ JOSELITO Loza, acrylic fabricator RN Signed: 09/03/2024 12:53 09/04/2024 ADDENDUM STATUS: COMPLETED Plan of Care was reviewed with patient/significant other. DIABETES: Goal not met(explain why) chronic condition Continue problem New target date (if applicable): Aug FALLS/INJURY POTENTIAL: Goal not met(explain why) limited mobility, unfamiliar environment Continue problem New target date (if applicable): Aug RISK FOR INFECTION: Goal not met(explain why) PIV access, hospitalization Continue problem New target date (if applicable): Aug /rosette/ JOSELITO briggs,acrylic fabricator RN Signed: 09/04/2024 03:15 09/04/2024 ADDENDUM STATUS: COMPLETED Plan of Care was reviewed with patient/significant other. DIABETES: Goal not met(explain why) chronic condition Continue problem New target date (if applicable): Aug FALLS/INJURY POTENTIAL: Goal not met(explain why) limited mobility, unfamiliar environment Continue problem New target date (if applicable): Aug RISK FOR INFECTION: Goal not met(explain why) PIV access Continue problem New target date (if applicable): Aug /rosette/ JOSELITO Loza, acrylic fabricator RN Signed: 09/04/2024 10:52 09/04/2024 ADDENDUM STATUS: COMPLETED Plan of Care was reviewed with patient/significant other. DIABETES: Goal not met(explain why) chronic condition Continue problem New target date (if applicable): Aug FALLS/INJURY POTENTIAL: Goal not met(explain why) limited mobility, unfamiliar environment Continue problem New target date (if applicable): Aug RISK FOR INFECTION: Goal not met(explain why) PIV access Continue problem New target date (if applicable): Aug /rosette/ JOSELITO Loza, acrylic fabricator RN Signed: 09/04/2024 12:13 09/05/2024 ADDENDUM STATUS: COMPLETED Plan of Care was reviewed with patient/significant other. DIABETES: Goal not met(explain why) Chronic condition Continue problem New target date (if applicable): Aug FALLS/INJURY POTENTIAL: Goal not met(explain why) Hospital environment, Impaired mobility New target date (if applicable): Aug RISK FOR INFECTION: Goal not met(explain why) PIV, Hospitalization Continue problem New target date (if applicable): Aug /rosette/ AILYN CHAUDHARI RN Signed: 09/05/2024 02:34 09/05/2024 ADDENDUM STATUS: COMPLETED Plan of Care was reviewed with patient/significant other. DIABETES: Goal not met(explain why) chronic condition Continue problem New target date (if applicable): Aug FALLS/INJURY POTENTIAL: Goal not met(explain why) limited mobility, unfamiliar environment Continue problem New target date (if applicable): Aug RISK FOR INFECTION: Goal not met(explain why) PIV access Continue problem New target date (if applicable): Aug /es/ JOSELITO Loza, acrylic fabricator RN Signed: 09/05/2024 16:03 09/06/2024 ADDENDUM STATUS: COMPLETED Plan of Care was reviewed with patient/significant other. DIABETES: Goal not met(explain why) Chronic condition Continue problem New target date (if applicable): Aug FALLS/INJURY POTENTIAL: Goal not met(explain why) Hospital environment, Impaired mobility, Weakness New target date (if applicable): Aug RISK FOR INFECTION: Goal not met(explain why) PIV, Hospitalization Continue problem New target date (if applicable): Aug /es/ AILYN CHAUDHARI RN Signed: 09/06/2024 01:41 09/07/2024 ADDENDUM STATUS: COMPLETED Plan of Care was reviewed with patient/significant other. DIABETES: Goal not met(explain why) Chronic condition Continue problem New target date (if applicable): Aug FALLS/INJURY POTENTIAL: Goal not met(explain why) Hospital environment, Impaired mobility, Weakness New target date (if applicable): Aug RISK FOR INFECTION: Goal not met(explain why) PIV, Hospitalization Continue problem New target date (if applicable): Aug /es/ KAREY SELLERS DNP,AGPCNP,LEAD WORKER OF HOUSEKEEPING AND LAUNDRY RN Signed: 09/07/2024 00:32 09/07/2024 ADDENDUM STATUS: COMPLETED Plan of Care was reviewed with patient/significant other. DIABETES: Goal not met(explain why) CHRONIC Continue problem New target date (if applicable): Aug FALLS/INJURY POTENTIAL: Goal not met(explain why) IMPAIRED MOBILITY/TOTAL ASSIST/HOSPITALIZATION New target date (if applicable): Aug RISK FOR INFECTION: Goal not met(explain why) PIV ACCESS/HOSPITALIZATION/AGE Continue problem New target date (if applicable): Aug /es/ AMANDA SANCHEZ Registered Nurse Signed: 09/07/2024 19:10 09/07/2024 ADDENDUM STATUS: COMPLETED Plan of Care was reviewed with patient/significant other. DIABETES: Goal not met(explain why) Chronic condition Continue problem New target date (if applicable): Aug FALLS/INJURY POTENTIAL: Goal not met(explain why) Hospital environment, Impaired mobility, Weakness New target date (if applicable): Aug RISK FOR INFECTION: Goal not met(explain why) PIV, Hospitalization Continue problem New target date (if applicable): Aug /jeannette SELLERS DNP,AGPCNP,LEAD WORKER OF HOUSEKEEPING AND LAUNDRY RN Signed: 09/07/2024 21:07 SRINIVAS DAVIS-MALKA [facility] Sep 03, 2024 05:07 AM NURSING INPATIENT NOTE: LOCAL TITLE: [facility]ES ACUTE INPATIENT NSG SHIFT ASSESSMENT STANDARD TITLE: NURSING INPATIENT NOTE DATE OF NOTE: SEP 03, 2024@05:07 ENTRY DATE: SEP 03, 2024@05:07:49 AUTHOR: SRINIVAS DAVIS EXP COSIGNER: URGENCY: STATUS: COMPLETED Version 2.2 Charting in accordance with [place] APPROVED [place] STANDARD (ARAES) ACUTE INPATIENT/REHABILITATION NURSING ADMISSION SCREENING, ASSESSMENT, AND STANDARDS OF CARE ====== REASSESSMENT ====== ===== INTEGUMENTARY/SKIN/WOUND - (INCLUDING CHICHI) SEE NOTE: ARAES SKIN INPECTION/ASSESSMENT ===== ====== PAIN ASSESSMENT ====== Patient's acceptable pain goal: 0 No pain Are you currently experiencing pain? No: Pain Score: 0 ====== NEUROLOGICAL ====== Neurological Orientation: Person Level of Consciousness (AVPU): Alert = Appears aware of and responsive to the environment on their own. Follows commands, opens eyes spontaneously, and tracks objects. 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 Edema: Present Generalized Location: BLE ====== RESPIRATORY ====== Respirations: Unlabored Pattern: Regular Breath Sounds Auscultated: Anterior only Left Upper Lobe: Clear Right Upper Lobe: Clear Right Middle Lobe: Clear Left Lower Lobe: Clear Right Lower Lobe: Clear Supplemental Oxygen Therapy: Flow rate (liters/min): 2 Method: Nasal cannula ====== GASTROINTESTINAL ====== Last bowel movement: 09/02/2024 Bowel movement reported by patient-unwitnessed Passing flatus Elimination: Incontinent Abdominal Description: Rounded Palpation: Soft, Non-tender Bowel Sounds: RUQ: Hyperactive LUQ: Hyperactive RLQ: Active LLQ: Active ====== GENITOURINARY ====== Elimination: Incontinent /es/ Srinivas Davis acrylic fabricator RN Signed: 09/03/2024 05:09 SRINIVAS DAVIS-CDD [facility] Sep 02, 2024 11:08 PM NURSING NOTE: LOCAL TITLE: [facility] SKIN INSPECTION/ASSESSMENT STANDARD TITLE: NURSING NOTE DATE OF NOTE: SEP 02, 2024@23:08 ENTRY DATE: SEP 03, 2024@08:08:38 AUTHOR: SRINIVAS DAVIS EXP COSIGNER: URGENCY: STATUS: COMPLETED Assessment Type: INITIAL SKIN INSPECTION/ASSESSMENT SKIN INSPECTION: Skin Color: Usual for ethnicity Skin Temperature: Warm Skin Moisture: Normal Skin Turgor: Elastic (normal/immediate) INTERVENTIONS: No change in previous interventions as listed below No data available RISK FACTORS THAT INCREASE RISK FOR DEVELOPING PRESSURE INJURIES The patient/resident does not have any additional risk factors. SKIN ALTERATIONS: Pressure Ulcer/Injury Documentation from the past year: No data available SKIN ALTERATIONS: Wound Documentation from the past year: No data available for: Skin Integrity - Wound Skin Integrity - Wound Second Skin Integrity - Wound Third Skin Integrity - Wound Fourth Skin Integrity - Wound Fifth Skin Integrity - Wound Additional Localized abnormality: Bruising: Location(s): scattered Moisture Associated Skin Damage (MASD) (inflammation and erosion of the skin caused by urine, stool, perspiration, mucus, saliva and wound exudate, etc.): Location(s): groin Pressure Ulcer/Injury: Stage 2: Location(s): Sacrum/coccyx No Edema Wound drainage none. /rosette/ Srinivas Davis RN production control scheduler Signed: 09/03/2024 08:11 SRINIVAS DAVIS [facility] Sep 02, 2024 09:22 PM NURSING INPATIENT NOTE: LOCAL TITLE: [facility] NURSING FREQUENT DOCUMENTATION STANDARD TITLE: NURSING INPATIENT NOTE DATE OF NOTE: SEP 02, 2024@21:22 ENTRY DATE: SEP 02, 2024@21:22:25 AUTHOR: LUDA HOLLAND COSIGNER: URGENCY: STATUS: COMPLETED Version 2.4 Charting in accordance with [place] APPROVED [place] STANDARD (ARAES) ACUTE INPATIENT/REHABILITATION NURSING ADMISSION SCREENING, ASSESSMENT, AND STANDARDS OF CARE ====== ACTIVITIES OF DAILY LIVING ====== Hygiene ADLs: Oral Care: Non-ventilator patient: Patient dentures/partial plates cleaned: With assistance Swabbing performed-Patient edentulous (lacking teeth) The [facility] was educated that poor oral hygiene increases the risk of hospital acquired pneumonia and dental problems like gingivitis and tooth decay. was educated using their preferred method and verbalized understanding. ======= ACTIVITY/MOBILIZATION ======= [facility] Highest Level of Mobility achieved this shift: neris/ LUDA HOLLAND Signed: 09/02/2024 21:23 LUDA HOLLAND-VUD [facility] Sep 02, 2024 09:01 PM NURSING INPATIENT NOTE: LOCAL TITLE: VAAES ACUTE INPATIENT NSG SHIFT ASSESSMENT STANDARD TITLE: NURSING INPATIENT NOTE DATE OF NOTE: SEP 02, 2024@21:01 ENTRY DATE: SEP 03, 2024@05:01:37 AUTHOR: SRINIVAS DAVISIGNER: URGENCY: STATUS: COMPLETED Version 2.2 Charting in accordance with [place] APPROVED [place] STANDARD (VAAES) ACUTE INPATIENT/REHABILITATION NURSING ADMISSION SCREENING, ASSESSMENT, AND STANDARDS OF CARE ====== ASSESSMENT ====== ====== HANDOFF ====== Bedside report and handoff completed Safety check completed ====== PAIN ASSESSMENT ====== Patient's acceptable pain goal: 0 No pain Are you currently experiencing pain? No: Pain Score: 0 ====== ALMAZAN FALL SCALE & TIPS PROGRAM ====== Almazan Fall Scale: The Almazan Fall scale was performed and score was 70. This is indicative of high risk for falls. History of falling: immediate or within 3 months? No Secondary diagnosis: Yes Ambulatory aid: None/bedrest/nurse assist Intravenous therapy/Heparin lock: Yes Gait/Transferring: Impaired Mental Status: Overestimates/forgets limitations Fall Tailoring Interventions for Patient Safety (TIPS) Fall TIPS initiated with patient: Yes Interventions: Communicate recent fall or risk of harm Bed/Chair Alarm on ====== ENVIRONMENTAL SAFETY MANAGEMENT ====== Implemented safety standards of care: -[place] to unit & environment -Adequate room lighting -Bed in low and locked position -Call light within reach -Personal items within reach -Traffic path in room free of clutter -Non-slip footwear -Upper/half length side rails up for bed mobility -Sensory aids within reach -Encourage patient to utilize sensory support Additional safety measures: Alarms: Bed Caregiver/family in attendance Close to nurses station ====== NEUROLOGICAL ====== Neurological Orientation: Person Level of Consciousness (AVPU): Alert = Appears aware of and responsive to the environment on their own. Follows commands, opens eyes spontaneously, and tracks objects. 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 Edema: Present Generalized Location: BLE ====== RESPIRATORY ====== Respirations: Unlabored Pattern: Regular Breath Sounds Auscultated: Anterior only Left Upper Lobe: Clear Right Upper Lobe: Clear Right Middle Lobe: Clear Left Lower Lobe: Clear Right Lower Lobe: Clear Supplemental Oxygen Therapy: Flow rate (liters/min): 2 Method: Nasal cannula ====== GASTROINTESTINAL ====== Last bowel movement: 09/02/2024 Bowel movement reported by patient-unwitnessed Passing flatus Elimination: Incontinent Abdominal Description: Rounded Palpation: Soft, Non-tender Bowel Sounds: RUQ: Hyperactive LUQ: Hyperactive RLQ: Active LLQ: Active ====== GENITOURINARY ====== Elimination: Incontinent ===== INTEGUMENTARY/SKIN/WOUND - (INCLUDING CHICHI) SEE NOTE: VAAES SKIN INPECTION/ASSESSMENT ===== ====== IV LINES ====== Peripheral IV: Present on admission: Line #1: Location: Right, Antecubital Gauge: 20 ====== PSYCHOSOCIAL ====== Type of Emotional Support Provided: 1:1 discussion /es/ Srinivas Davis RN production control scheduler Signed: 09/03/2024 05:04 SRINIVAS DAVIS [facility] Sep 02, 2024 08:54 PM NURSING E & M NOTE: LOCAL TITLE: NURSING 24 HOUR ORDER VERIFICATION NOTE STANDARD TITLE: NURSING E & M NOTE DATE OF NOTE: SEP 02, 2024@20:54 ENTRY DATE: SEP 02, 2024@20:54:39 AUTHOR: SRINIVAS DAVIS EXP COSIGNER: URGENCY: STATUS: COMPLETED Electronic and hard copy review for orders was completed. Life Sustaining Treatment Orders LST Note Verified /rosette/ Srinivas Davis RN production control scheduler Signed: 09/02/2024 20:54 SRINIVAS DAVIS [facility] Sep 02, 2024 08:53 PM NURSING INPATIENT NOTE: LOCAL TITLE: [facility] NURSING FREQUENT DOCUMENTATION STANDARD TITLE: NURSING INPATIENT NOTE DATE OF NOTE: SEP 02, 2024@20:53 ENTRY DATE: SEP 02, 2024@20:53:52 AUTHOR: SRINIVAS DAVIS EXP COSIGNER: URGENCY: STATUS: COMPLETED Version 2.4 Charting in accordance with [place] APPROVED [place] STANDARD (ARAES) ACUTE INPATIENT/REHABILITATION NURSING ADMISSION SCREENING, ASSESSMENT, AND STANDARDS OF CARE ====== NATIONAL EARLY WARNING SCORE (NEWS) ====== The following vital measurements were used to complete the NEWS. Measurement DT TEMP PULSE RESP BP POx F(C) (L/MIN)(%) 09/02/2024 20:14 99.1(37.3) 86 18 146/77 95 The NEWS total is 3. 1. Temperature (C/F): Score = 0 36.1 - 38.0 C (96.9 - 100.4 F) 2. Pulse: Score = 0 51-90 3. Respirations: Score = 0 12-20 4. Blood Pressure (Only Systolic BP, mmHg): Score = 0 111-219 5. Pulse Oximetry: Score = 1 94% - 95% 6. Supplemental oxygen in use: Score = 2 Yes 7. AVPU: Score = 0 Alert Patient Status: Remains on unit /rosette/ Srinivas Davis RN production control scheduler Signed: 09/02/2024 20:54 SRINIVAS DAVISCDD [facility] Sep 02, 2024 05:00 PM NURSING INPATIENT NOTE: LOCAL TITLE: ARAES ACUTE INPATIENT NSG SHIFT ASSESSMENT STANDARD TITLE: NURSING INPATIENT NOTE DATE OF NOTE: SEP 02, 2024@17:00 ENTRY DATE: SEP 02, 2024@17:00:53 AUTHOR: KUMAR PARMAR COSIGNER: URGENCY: STATUS: COMPLETED Version 2.2 Charting in accordance with [facility] [place] STANDARD (ARAES) ACUTE INPATIENT/REHABILITATION NURSING ADMISSION SCREENING, ASSESSMENT, AND STANDARDS OF CARE ====== ASSESSMENT ====== ====== HANDOFF ====== Bedside report and handoff completed Safety check completed ====== PAIN ASSESSMENT ====== Patient's acceptable pain goal: 0 No pain Are you currently experiencing pain? No: Pain Score: 0 ====== ALMAZAN FALL SCALE & TIPS PROGRAM ====== Almazan Fall Scale: The Almazan Fall scale was performed and score was 70. This is indicative of high risk for falls. History of falling: immediate or within 3 months? No Secondary diagnosis: Yes Ambulatory aid: None/bedrest/nurse assist Intravenous therapy/Heparin lock: Yes Gait/Transferring: Impaired Mental Status: Overestimates/forgets limitations Fall Tailoring Interventions for Patient Safety (TIPS) Fall TIPS initiated with patient: Yes Interventions: Communicate recent fall or risk of harm Bed/Chair Alarm on ====== ENVIRONMENTAL SAFETY MANAGEMENT ====== Implemented safety standards of care: -[place] to unit & environment -Adequate room lighting -Bed in low and locked position -Call light within reach -Personal items within reach -Traffic path in room free of clutter -Non-slip footwear -Upper/half length side rails up for bed mobility -Sensory aids within reach -Encourage patient to utilize sensory support Additional safety measures: Alarms: Bed Caregiver/family in attendance Close to nurses station ====== NEUROLOGICAL ====== Neurological Orientation: Person Level of Consciousness (AVPU): Alert = Appears aware of and responsive to the environment on their own. Follows commands, opens eyes spontaneously, and tracks objects. 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 Edema: Present Generalized Location: BLE - ankles ====== RESPIRATORY ====== Respirations: Unlabored Pattern: Regular Breath Sounds Auscultated: Anterior only Left Upper Lobe: Clear Right Upper Lobe: Clear Right Middle Lobe: Clear Left Lower Lobe: Clear Right Lower Lobe: Clear Supplemental Oxygen Therapy: Flow rate (liters/min): 2 Method: Nasal cannula ====== GASTROINTESTINAL ====== Last bowel movement: 09/02/2024 Bowel movement reported by patient-unwitnessed Passing flatus Elimination: Incontinent Abdominal Description: Rounded Palpation: Soft, Non-tender Bowel Sounds: RUQ: Hyperactive LUQ: Hyperactive RLQ: Active LLQ: Active ====== GENITOURINARY ====== Elimination: Incontinent ===== INTEGUMENTARY/SKIN/WOUND - (INCLUDING CHICHI) SEE NOTE: VAAES SKIN INPECTION/ASSESSMENT ===== ====== ACTIVITIES OF DAILY LIVING ====== Hygiene ADLs: Eating: Minimal assist ====== MOBILITY ====== Mobility Status: Total assist: Unable to sit up independently at the side of bed Gait: Unable to ambulate ====== IV LINES ====== Peripheral IV: Present on admission: Line #1: Location: Right, Antecubital Gauge: 20 ====== PSYCHOSOCIAL ====== Type of Emotional Support Provided: 1:1 discussion, Hospitalization discussion, Ventilation of feelings encouraged /es/ KUMAR PARMAR RN Signed: 09/02/2024 17:04 KUMAR PARMARINGTON-CDD [facility] Sep 02, 2024 04:54 PM NURSING ADMISSION EVALUATION NOTE: LOCAL TITLE: [facility] ACUTE INPATIENT NSG ADMISSION S STANDARD TITLE: NURSING ADMISSION EVALUATION NOTE DATE OF NOTE: SEP 02, 2024@16:54 ENTRY DATE: SEP 02, 2024@16:54:46 AUTHOR: KUMAR PARMAR EXP COSIGNER: URGENCY: STATUS: COMPLETED ===== ALLERGY/ADVERSE DRUG REACTION (ADR) REVIEW (MRT5) ===== FACILITY ALLERGY/ADR -------- No Remote Allergy/ADR Data available for this patient [facility] No Known Allergies Allergy/Adverse Drug Reaction Review to be conducted by: Nurse: Results of Allergy/ADR Review: Allergy/Adverse Drug Reaction list confirmed. ==== MEDICATION REVIEW (MRR1) ==== Did patient bring medication(s) from home? No Medication Review to be conducted by Provider ==== GENERAL INFORMATION ==== Admission information given by: Patient Is there a legal guardian/conservator? No Preferred language for discussing healthcare: Turkmen Preferred mode of communication: Verbal Sensory Deficits & Contributing Information: Hearing deficit: Bilateral Visual deficit: Bilateral Items at Bedside: Dentures: Upper/lower Visual Aids: Standard Glasses Other: Cell phone, street clothes, wedding band ===== INFECTIOUS DISEASE RISK SCREEN ===== Travel Screen: Have you traveled within the [place] within the last 21 days? No Have you traveled outside the [place] within the last 21 days? No Within the last 14 days, have you had: No known exposure Other Exposure to Infectious Disease: No known exposure Patient reported the following symptoms: No Symptoms Present History of Multiple Drug Resistant Organism (MDRO): No ===== NUTRITION SCREENING ===== Malnutrition Screening Weight (Previous 6 months): No data available for: WEIGHT Lost weight recently without trying: No (0 points) Have you been eating poorly because of decreased appetite? Yes (1 point) Total Score: 1 Other Nutrition Screening Questions: The patient does not report any concerns with their teeth that would make it difficult to eat. The patient does not report overeating to the point of feeling sick or making themselves vomit. The patient denies gaining 10 lbs.(4.5 kgs) or more in the past 3 months without trying. The patient denies having any food allergies, intolerance, special dietary needs, or ethnic, cultural or muslim preferences that would affect their dietary needs. Food Insecurity Screening Within the past 12 months, you worried whether your food would run out before you got money to buy more. Never true Within the past 12 months, the food you bought just did not last you and you did not have the money to get more. Never true Food Insecurity Disposition: ==== RISK SCREENINGS ==== Alcohol Screen: Screen to be completed by: Nurse: SCREEN FOR ALCOHOL (AUDIT-C) An alcohol screening [...] required due to responses to other questions. *Does the patient consume alcohol? No Tobacco Use: Former - tobacco user Do you currently or have you ever used alternative nicotine products? No Substance Use Assessment: *Do you use any recreational drugs or narcotics (prescription or non-prescription)? No ===== RISK OF WANDERING ===== The patient does not have a history of wandering. The patient does not have a history of elopement. The patient is not expressing a desire to leave. === SUICIDE SCREEN === [place] Suicide Severity Rating Scale (C-SSRS) 1. Over the past month, have you [...] required due to responses to other questions. C-SSRS Screen is Negative ==== EXPOSURE TO VIOLENCE AND ABUSE PRE-SCREEN ==== Are you worried for your safety, that you will be hurt or harmed? No Has anyone tried to force you to sign papers or use your money against your will? No ==== POST TRAUMATIC STRESS DISORDER CARE CONSIDERATIONS ==== To minimize a startle response, what is your preference on how best to awaken you? No preference ==== ADVANCE DIRECTIVE ==== Notification of Rights Related to Advance Directives: Written notification provided. *The patient wishes to receive information about or assistance with Advance Care Planning and/or Advance Directive: Yes: Consult/notification placed to Social Work === SPIRITUALITY === Are there muslim practices or spiritual concerns you want the supervisor cutting and sewing room, your provider, and other health care team members to know? No ==== ANTICIPATED DISCHARGE NEEDS ==== Where do you live? 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 Method of transportation upon discharge: Ambulance Ground/Air: Consult/notification placed to Social Work. Are there any anticipated barriers to discharge? Yes: Anticipated Barriers to Discharge: Other: and vet wants new NH or to DC home ==== VISITOR INFORMATION ==== Will you have a primary support person while in the hospital? Yes: Relationship to patient: Spouse Visitor Name: Patricia Phoenix Contact Number: [phone] Patient's Visitor Restriction preferences: No Privacy Review: No passcode provided due to opt out /rosette/ KUMAR PARMAR RN Signed: 09/02/2024 16:59 KUMAR PARMAR [place]-CD[facility] Sep 02, 2024 04:53 PM NURSING E & M NOTE: LOCAL TITLE: NURSING 24 HOUR ORDER VERIFICATION NOTE STANDARD TITLE: NURSING E & M NOTE DATE OF NOTE: SEP 02, 2024@16:53 ENTRY DATE: SEP 02, 2024@16:53:40 AUTHOR: KUMAR PARMAR EXP COSIGNER: URGENCY: STATUS: COMPLETED Electronic and hard copy review for orders was completed. Life Sustaining Treatment Orders LST Note Verified /rosette/ KUMAR PARMAR RN Signed: 09/02/2024 16:53 KUMAR PARMAR-CDD [facility] Sep 02, 2024 04:53 PM NURSING INPATIENT NOTE: LOCAL TITLE: [facility] NURSING FREQUENT DOCUMENTATION STANDARD TITLE: NURSING INPATIENT NOTE DATE OF NOTE: SEP 02, 2024@16:53 ENTRY DATE: SEP 02, 2024@16:53:57 AUTHOR: KUMAR PARMAR EXP COSIGNER: URGENCY: STATUS: COMPLETED Version 2.4 Charting in accordance with [place] APPROVED [place] STANDARD (ARAES) ACUTE INPATIENT/REHABILITATION NURSING ADMISSION SCREENING, ASSESSMENT, AND STANDARDS OF CARE ====== NATIONAL EARLY WARNING SCORE (NEWS) ====== The following vital measurements were used to complete the NEWS. Measurement DT TEMP PULSE RESP BP POx F(C) (L/MIN)(%) 09/02/2024 15:57 97.6(36.4) 90 17 132/75 96[2.0][] The NEWS total is 2. 1. Temperature (C/F): Score = 0 36.1 - 38.0 C (96.9 - 100.4 F) 2. Pulse: Score = 0 51-90 3. Respirations: Score = 0 12-20 4. Blood Pressure (Only Systolic BP, mmHg): Score = 0 111-219 5. Pulse Oximetry: Score = 0 96% or greater 6. Supplemental oxygen in use: Score = 2 Yes 7. AVPU: Score = 0 Alert Patient Status: Remains on unit /es/ KUMAR PARMAR RN Signed: 09/02/2024 16:54 KUMAR PARMAR-CDD [facility] Sep 02, 2024 04:50 PM INTERNAL MEDICINE H & P NOTE: LOCAL TITLE: MEDICINE INTER/RESIDENT H&P NOTE STANDARD TITLE: INTERNAL MEDICINE H & P NOTE DATE OF NOTE: SEP 02, 2024@16:50 ENTRY DATE: SEP 02, 2024@16:50:43 AUTHOR: FRANCK TURNER EXP COSIGNER: PINKY NGUYEN URGENCY: STATUS: COMPLETED MEDICINE INTER/RESIDENT H&P NOTE Has ADDENDA CC: feel weak HPI: is a 79M transferred from [facility] to [facility]. He has a PMH of GERD, multiple sclerosis, prostate cancer, T2DM, HLD, HTN, and reportedly COPD. On my evaluation he states I know I have some things wrong with me, I don't know what they are but I feel fine right now. Denies SOB, chest pain, urinary symptoms, bowel or bladder concerns. He states he feels weak, reports that this is not new. Is unfortunately not able to explain what events precipitated his admission to [facility] from [facility], I will review records that were brought with him. Records from OSH indicate 09/01 had a near syncopal episode at [facility], he did not lose consciousness. He then received 3L IV fluid over the subsequent 24hr period. Has also received 2 doses of Levaquin. His family requested he be transferred to [facility] from [facility] d/t his weakness. W/u at OSH demonstrates BP 132/58, HR 88, SPO2 94% on 1L NC, EKG without ischemia. CBC with mild anemia hgb 9.9, WBC 7.3, plts 225. BMP with hyponatremia 127 from 133 previously, Cr 0.8. Cov/Flu/RSV negative. TSH normal. CT Chest obtained. [facility] contacted for transfer and accepted. I will admit this patient to [facility] for workup of suspected heart failure exacerbation. ROS: Reviewed and negative except as stated otherwise above. PMH: Active problems - Computerized Problem List is the source for the followin. Gastroesophageal reflux disease without esophagitis 2. Constipation 3. Multiple sclerosis 4. Age related macular degeneration 5. Closed fracture of shaft of right fibula 6. Incontinence 7. Type 2 diabetes mellitus 8. Essential hypertension 9. Hyperlipidemia 10. Carcinoma of prostate 11. Pain of right knee joint Patient has answered NKA MEDS: ACTIVE OUTPATIENT PRESCRIPTIONS - NONE FOUND FH: n/a SH: Currently at [facility], no EtOH, 40 pack year smoking history quit >10 years ago VITALS: Tc: 97.6 F [36.4 C] (09/02/2024 15:57) HR: 90 (09/02/2024 15:57) RR: 17 (09/02/2024 15:57) BP: 132/75 (09/02/2024 15:57) SpO2: SEP 02, 2024@15:57 -- PULSE OXIMETRY: 96 (with supplemental O2 2.0 l/min % via NASAL CANNULA) PHYSICAL EXAM GENERAL : lying in bed, in NAD. HEAD/NECK: atraumatic, trachea midline EYES : EOMI, anicteric sclera ENMT : Moist mucus membranes w/o lesion, nares patent. CVS : RRR. No murmurs (though reports hx of murmur); 1+ pitting edema to bilat LE PULM : Normal work of breathing. Lungs with mild end expiratory wheezes, no crackles or rhonchi. GI : +BS, soft, nontender, nondistended. No rebound/guarding. DERM : no noted rash, bruising, bleeding, wounds. MSK : No joint swelling or deformity. 5/5 strength in bilateral UE, 4/5 in LE. NEURO : CN II-XII grossly intact, AxO x3. PSYCH : mood & affect appropriate. No hallucinations. LABS: WBC: 11.2 K/cmm H (08/29/2024 20:32) H HCT: 0 PLT: 0 MCV: 84.4 fL (08/29/2024 20:32) RDW: 14.6 % (08/29/2024 20:32) INR: ____ PTT: ____ SODIUM: 129 mmol/L L (08/29/2024 20:32) POTASSIUM: 4.5 mmol/L (08/29/2024 20:32) CHLORIDE: 99 mmol/L (08/29/2024 20:32) CO2: 23 mmol/L (08/29/2024 20:32) BUN: 15 mg/dL (08/29/2024 20:32) CREATININE: Collection DT Specimen Test Name Result Units Ref Range 08/29/2024 20:32 PLASMA!! CREATININE 0.85 mg/dL 0.72 - 1.25 !! Indicates COMMENTS AVAILABLE...Refer to Interim Lab Report. CALCIUM: 8.6 mg/dL (08/29/2024 20:32) ANION GAP: 7.0 mEq/L (08/29/2024 20:32) AST: 11 U/L (08/29/2024 20:32) ALT: 15 U/L (08/29/2024 20:32) ALK PHOS: 97 U/L (08/29/2024 20:32) BILIRUBIN: ALBUMIN: 2.9 g/dL L (08/29/2024 20:32) PROTEIN: 5.9 g/dL L (08/29/2024 20:32) HgA1C: Collection DT Specimen Test Name Result Units Ref Range 08/29/2024 20:32 BLOOD HGB 10.9 L g/dL 14.0 - 18.0 IMAGING: Pending upload of OSH CT Chest A/P: 79M with PMH COPD presents for chronic weakness, new oxygen requirement after IV fluids 24h prior. #Weakness due to presumed new onset heart failure, type unspecified -Received IV Lasix 40mg at OSH -No TTE on file, BNP >1600 -Etiology is most likely new heart failure after 3L of fluids, less likely infectious causes given normal WBC and afebrile, less likely acute MS flare given baseline neuro exam PLAN: -Strict I/O -TTE -UA with reflex to r/o UTI as etiology of weakness - BCx drawn -CXR to eval volume status - Will review CT chest from OSH once uploaded, disc sent to rads -Hold on further diuresis until AM labs given unclear UOP with dose at OSH -Was receiving Levaquin, will hold on abx given no clear infectious source #Multiple sclerosis -Imaging: CT head 08/29/24: Periventricular decreased attenuation likely sequelae of remote ischemic small-vessel disease. -Receives outpatient Ocrelizumab infusions for MS PLAN: -No concern for acute flare #Type II diabetes mellitus c/b neuropathy -On metformin at home -Most recent A1c 01/2024 6.4 PLAN: -A1c -Hold metformin - Gabapentin tab 100mg four times a day -Start SSI and Accu-Chek's CHRONIC MEDICAL CONDITIONS: GERD: home famotidine 20mg tab twice a day as needed Prostate cancer: receives leuprolide (eligard) 45mg(6 month)LA inj as outpatient, on home silodosin 8mg oral cap daily will convert to tamsulosin 0.8mg daily, hold methenamine hippurate 1gm tab twice a day for uti px pending UA CAD: aspirin 81mg chew tab daily HLD: atorvastatin calcium tab 20mg at bedtime HTN: bisoprolol fumarate 5mg tab daily, reportedly on lisinopril, dose unknown will hold at admission FEN/DVT Ppx: F- PO E- Monitor and replete N- Carb 2 DVT Ppx: Prophylactic lovenox Code Status: Full Code Dispo: Admit to [facility] Franck Turner MD PGY1 Internal Medicine Pager: [phone] /es/ FRANCK TURNER PGY1 Signed: 09/02/2024 17:24 /rosette/ PINKY NGUYEN HOSPITALIST Cosigned: 09/03/2024 13:26 09/03/2024 ADDENDUM STATUS: COMPLETED I have seen and examined pt and discussed plan of care with resident and participated in talbot decision making and agree with plan. - possible new onset systolic vs diastolic HF- new bilateral pleural effusions after IVF for weakness and near syncope at rehab. TTE pending. BNP 1600. received diuresis at OSH and in EMS. will reassess urine output. can repeat Diuresis (may need higher dose if did not respond toprior doses). - possible new hypoxic resp failure- on 2L NC. no true hypoxia documented. will as nursing to wean off oxygen as tolerated. - acute on chronic hyponatremia- BL Na is around 133. noted to be lower at 129 in ED visit earlier this month. 124 on admission. improved with some diuresis. this may be related to CHF vs mild SAIDH given slightly low serum osmol. urine lytes pending, however, given he has received diuretics may not be greatly useful. - delirium vs encephalopathy of unclear etiology- reports pt being very confused in rehab. he was d/c'd to rehab from [facility] after being treated for PNA. CTH negative for acute findings. no focal neuro deficits on exam. this is likely delirium. initiate delirium precautions. hold home gabapentin for now while confused. - possible MS flare- report pf rapid weakness with acute illness. was diagnosed with MS brendan at [facility]. will consult Neurology to further assist with dx and treatment of MS flare. in the meantine can obtain UA/Culture to r/o UTI. however, given normal WBC and reently treated PNA and no resp symptoms recurrent PNA/infection is less likely. CHRONIC MEDICAL PROBLEMS: - Multiple Sclerosis- consult neurology to assess for possible flare given weakness in rehab. - h/o Prostate cancer - GERD- Famotidine, - HTN- on lisinopril 5 mg daily. given concern for CHF can likely resume. however, may consider holding Bisoprolol if concern for poor response to diurestics due to new onser S-CHF until CHF is treated. - HLD- lipitor 20 mg at night - COPD- does not appear to be in exacerbation.cont DUONEBS per rehab - H/o UTIs- on Methanamine Hipurate as op. can resume - constipation- cont home Miralax - DM2- 1C 5.6%, holding home metformin for now. agree with SSI - vitamin E and D deficiency- canc cont replacement - BPH- cont home Flomax - recent bacterial PNA- completed abx w levaquin 09/02. DVT PPX- Lovenox FULL CODE DISPOSITION: likely return to rehab ([facility]) once medically ready /rosette/ PINKY NGUYEN HOSPITALIST Signed: 09/03/2024 13:46 FRANCK TURNER [facility] Sep 02, 2024 04:32 PM ADVANCE DIRECTIVE DISCUSSION: LOCAL TITLE: ADMISSION ADVANCED DIRECTIVE NOTE STANDARD TITLE: ADVANCE DIRECTIVE DISCUSSION DATE OF NOTE: SEP 02, 2024@16:32 ENTRY DATE: SEP 02, 2024@16:32:47 AUTHOR: NEIDA ACEVES EXP COSIGNER: URGENCY: STATUS: COMPLETED Patient/Family received copy of Your Right to Decide : Yes Do you have an advance directive? No, patient does not have an advance directive. Would you like to make an advance directive? No, patient does not want to make an advance directive. Would you like more information regarding an advance directive? No, does not want more info on advance directive. Based upon Treatment Team Assignment, an ID signer alert sent to [employer] for Advance Directive Status: Alert sent to: Name of Charge Nurse to be identified as signer: COMMENTS: /jeannette Aceves Fitness/Wellness Director Signed: 09/02/2024 16:34 [facility] 02, 2024 04:30 PM ADMINISTRATIVE NOTE: LOCAL TITLE: ESSENTIAL MEDICATIONS LIST FOR REVIEW (EMLR) STANDARD TITLE: ADMINISTRATIVE NOTE DATE OF NOTE: SEP 02, 2024@16:30 ENTRY DATE: SEP 02, 2024@16:30:51 AUTHOR: NEIDA ACEVES EXP COSIGNER: URGENCY: STATUS: COMPLETED Active and Recently Outpatient Medications (including Supplies): Inactive Outpatient Medications Status 1) MEDICATION DISPOSAL [...] 8MG MOUTH DAILY ACTIVE Indication: FOR PROSTRATE 15 Total Medications Allergies: local and remote Patient has answered NKA No Remote Allergy/ADR Data available for this patient Review of medications include: Patient allergies (Remote and Local) and active and pending prescriptions dispensed from this [facility] (local) and dispensed from another [facility] or [facility] facility (remote and pending) as well as local inpatient orders (pending and active) and clinic medications (IMOs), locally documented non-VA medications and local prescriptions that have or been discontinued in the past 90 days. With the exception of Allergies, if a category is not listed below, it means there were no relevant medications for the patient. MRT5-Local & Remote Allergies Inpatient Active/Pending: ENOXAPARIN (LMW HEPARIN) INJ Directions: 40MG/0.4ML Schedule: Q24H Admin: Special: Instructions too long. See order details for full text. Issued: 09/02/24 Expires: 12/10/24 Status: ACTIVE SODIUM CHLORIDE 0.9% INJ,SOLN Solution: SODIUM CHLORIDE 0.9% (500 ML) Issued: 08/29/24 Expires: 08/30/24 Status: LIDOCAINE JELLY 2% (GLYDO) JELLY Directions: SMALL AMOUNT Schedule: NOW Issued: 08/29/24 Expires: 08/30/24 Status: No remote medications found. Outpatient Active/Pending: No local medications found. No remote medications found. No local medications found. No remote medications found. Inpatient Nonva Medications: ASPIRIN 81MG CHEW TAB Directions: 81MG MOUTH DAILY Status: ACTIVE ATORVASTATIN CALCIUM TAB 20MG Directions: 20MG MOUTH AT BEDTIME Status: ACTIVE BISOPROLOL FUMARATE 5MG TAB Directions: 5MG MOUTH DAILY Status: ACTIVE CHOLECALCIF 10MCG (D3-400UNIT) TAB Directions: 10MCG MOUTH DAILY Status: ACTIVE CHOLECALCIF 50MCG (D3-2,000UNIT) TAB Directions: 50MCG MOUTH TWICE A DAY Status: ACTIVE FAMOTIDINE 20MG TAB Directions: 20MG MOUTH TWICE A DAY NEEDED Status: ACTIVE GABAPENTIN TAB Directions: 100MG MOUTH FOUR TIMES A DAY Status: ACTIVE LEUPROLIDE (ELIGARD) 45MG(6 MONTH)LA INJ Directions: 45MG (1 DOSE) UNDER THE SKIN ONCE Status: ACTIVE METFORMIN HCL 500MG 24HR SA TAB Directions: 500MG MOUTH DAILY Status: ACTIVE METHENAMINE HIPPURATE 1GM TAB Directions: 1GM MOUTH TWICE A DAY Status: ACTIVE OCRELIZUMAB INJ,SOLN Directions: INTO THE VEIN DIRECTED Status: ACTIVE POLYETHYLENE GLYCOL 3350 ORAL PWDR Directions: 17 GRAMS (ONE CAPFUL FILLED TO LINE) IN LIQUID MOUTH DAILY Status: ACTIVE PRESERVISION AREDS VITAMIN Directions: 2 CAPSULES MOUTH DAILY Status: ACTIVE PSYLLIUM 520MG CAP Directions: 1 CAPSULE MOUTH DAILY Status: ACTIVE SILODOSIN 8MG ORAL CAP Directions: 8MG MOUTH DAILY Status: ACTIVE Inpatient : SODIUM CHLORIDE 0.9% INJ,SOLN Solution: SODIUM CHLORIDE 0.9% (500 ML) Issued: 08/29/24 Expires: 08/30/24 Status: LIDOCAINE JELLY 2% (GLYDO) JELLY Directions: SMALL AMOUNT Issued: 08/29/24 Expires: 08/30/24 Status: No remote medications found. Inpatient Discontinued: No local medications found. No remote medications found. /rosette/ Neida Aceves Fitness/Wellness Director Signed: 09/02/2024 16:32 NEIDA ACEVES[facility]
--- OUTSIDE RECORDS SUMMARY | 2024-09-02 12:50 | XMS_ITS ---
Author Name [facility] Organization [facility] Address [address] [place] [id number] Care Team Providers Care Case Repairer Name Role Phone YULISSA HENDERSON Primary Care [...] PLAN F Mar 24, 2014 PLAN F [id number] [phone] LUIS MANUEL PERDOMO PATIENT [facility] BLUECARD PREFERRED PROVIDER ORGANIZAT ION (PPO) [facility] Sep 21, 2012 [id number] LUIS MANUEL PERDOMO PATIENT [employer] ([id number]) PRESCRIPT ION [id number] Sep 21, 2012 [id number] LUIS MANUEL PERDOMO PATIENT MEDICARE (WNR) MEDICARE (M) PART B Sep 21, 2012 PART B [id number] NOEMI PERDOMO PATIENT MEDICARE (WNR) MEDICARE (M) PART A Jan 22, 2011 PART A [id number] NOEMI PERDOMO PATIENT MEDICARE PART D (WNR) MEDICARE (M) PART D Mar 24, 2014 PART D [id number] LUIS MANUEL PERDOMO PATIENT Selected Encounter This section includes the information on record at [place] for the Encounter. Date/Time Encounter Type Encounter Description Reason Provider Source Sep 02, 2024 04:50 PM 1ST H[facility] IP/OBS MODERATE 55 [facility] Encounter Template Text not used by [place] Plan of Treatment: Future Appointments (+ 6 months) and Future Tests (+/- 45 days) The Plan of Treatment section includes future care activities for the patient from all [place] treatmentfacilities. This section includes future appointments and future orders which are active, pending or scheduled. Future Appointments This section includes appointments that were scheduled to occur 6 months from the date of the Encounter, up to a maximum of 20 appointments. The data comes from all [place] treatment facilities. Appointment Date/Time Appointment Type Appointme nt Facility Name Sep 13, 2024 08:00 AM AMBULATORY - NONE [place] [facility] Sep 30, 2024 01:30 PM AMBULATORY - SURGERY [place] [facility] Active, Pending, [...] of theEncounter. The data comes from all [place] treatment facilities. Test Date/Time Test Type Test Details Facility Name Sep 13, 2024 01:33 PM Consult Order [facility] Cons Meat Service Team Member's Choice [facility] Lab Results: +/- 30 days of the encounter This section includes the Chemistry and Hematology Lab Results on record with [place] for the patient. Radiology Reports and Pathology Reports are provided separately, in subsequent sections. Lab Results This section contains the Chemistry/Hematology Results that were resulted 30 days before or 30 daysafter the date of the Encounter. Date/Time Source Result Type Result - Unit Interpretation Reference Range Specimen Type Comment Sep 09, 2024 12:16 PM [facility] GLUCOSE-HAND MONITOR CAPILLARY Specimen Type: CAPILLARY Comment: Test performed by: [id number] Meter #: [id number] Ordering Provider: FRANCK TURNER Report Released Date/Time: Sep 09, 2024 12:33 PM Reporting Lab: [address] [address] Performing Lab: [address] [address] GLUCOSE-HAND MONITOR 116 mg/dL H Sep 09, 2024 06:07 AM [facility] GLUCOSE-HAND MONITOR CAPILLARY Specime n Type: CAPILLARY Comment: Test performed by: [id number] Meter #: [id number] Ordering Provider: FRANCK TURNER Report Released Date/Time: Sep 09, 2024 08:17 AM Reporting Lab: [address] [address] Performing Lab: [address] [address] GLUCOSE-HAND MONITOR 112 mg/dL H Sep 08, 2024 09:13 PM [facility] GLUCOSE-HAND MONITOR CAPILLARY Specime n Type: CAPILLARY Comment: Test performed by: [id number] Meter #: [id number] Ordering Provider: FRANCK TURNER Report Released Date/Time: Sep 08, 2024 09:31 PM Reporting Lab: [address] [address] Performing Lab: [address] [address] GLUCOSE-HAND MONITOR 107 mg/dL H Sep 08, 2024 03:49 PM [facility] GLUCOSE-HAND MONITOR CAPILLARY Specime n Type: CAPILLARY Comment: AAMIR RN notified Test performed by: [id number] Meter #: [id number] Ordering Provider: FRANCK TURNER Report Released Date/Time: Sep 08, 2024 04:33 PM Reporting Lab: [address] [address] Performing Lab: [address] [address] GLUCOSE-HAND MONITOR 162 mg/dL H Sep 08, 2024 11:43 AM [facility] GLUCOSE-HAND MONITOR CAPILLARY Specime n Type: CAPILLARY Comment: AAMIR RN notified Test performed by: [id number] Meter #: [id number] Ordering Provider: FRANCK TURNER Report Released Date/Time: Sep 08, 2024 12:03 PM Reporting Lab: [place] [phone] Performing Lab: [address] [address] GLUCOSE-HAND MONITOR 133 mg/dL H Sep 08, 2024 06:13 AM [facility] GLUCOSE-HAND MONITOR CAPILLARY Specime n Type: CAPILLARY Comment: Test performed by: [id number] Meter #: [id number] Ordering Provider: FRANCK TURNER Report Released Date/Time: Sep 08, 2024 06:46 AM Reporting Lab: [place] [phone] Performing Lab: [place] [phone] GLUCOSE-HAND MONITOR 104 mg/dL H Sep 07, 2024 07:59 PM [facility] GLUCOSE-HAND MONITOR CAPILLARY Specime n Type: CAPILLARY Comment: Test performed by: [id number] Meter #: [id number] Ordering Provider: FRANCK TURNER Report Released Date/Time: Sep 07, 2024 09:05 PM Reporting Lab: [place] [phone] Performing Lab: [address] [address] GLUCOSE-HAND MONITOR 107 mg/dL H Sep 07, 2024 04:39 PM [facility] GLUCOSE-HAND MONITOR CAPILLARY Specime n Type: CAPILLARY Comment: Test performed by: [id number] Meter #: [id number] Ordering Provider: FRANCK TURNER Report Released Date/Time: Sep 07, 2024 05:09 PM Reporting Lab: [place] [phone] Performing Lab: [address] [address] GLUCOSE-HAND MONITOR 105 mg/dL H Sep 07, 2024 11:41 AM [facility] GLUCOSE-HAND MONITOR CAPILLARY Specime n Type: CAPILLARY Comment: Test performed by: [id number] Meter #: [id number] Ordering Provider: FRANCK TURNER Report Released Date/Time: Sep 07, 2024 12:41 PM Reporting Lab: [address] [address] Performing Lab: [address] [address] GLUCOSE-HAND MONITOR 144 mg/dL H Sep 07, 2024 05:56 AM [facility] GLUCOSE-HAND MONITOR CAPILLARY Specime n Type: CAPILLARY Comment: Test performed by: [id number] Meter #: [id number] Ordering Provider: FRANCK TURNER Report Released Date/Time: Sep 07, 2024 06:31 AM Reporting Lab: [place] [phone] Performing Lab: [place] [phone] GLUCOSE-HAND MONITOR 96 mg/dL Sep 06, 2024 08:10 PM [facility] GLUCOSE-HAND MONITOR CAPILLARY Specime n Type: CAPILLARY Comment: Test performed by: [id number] Meter #: [id number] Ordering Provider: FRANCK TURNER Report Released Date/Time: Sep 06, 2024 08:52 PM Reporting Lab: [place] [phone] Performing Lab: [address] [address] GLUCOSE-HAND MONITOR 124 mg/dL H Sep 06, 2024 04:27 PM [facility] GLUCOSE-HAND MONITOR CAPILLARY Specime n Type: CAPILLARY Comment: Test performed by: [id number] Meter #: [id number] Ordering Provider: FRANCK TURNER Report Released Date/Time: Sep 06, 2024 05:15 PM Reporting Lab: [address] [address] Performing Lab: [address] [address] GLUCOSE-HAND MONITOR 107 mg/dL H Sep 06, 2024 12:12 PM [facility] GLUCOSE-HAND MONITOR CAPILLARY Specime n Type: CAPILLARY Comment: Test performed by: [id number] Meter #: [id number] Ordering Provider: FRANCK TURNER Report Released Date/Time: Sep 06, 2024 12:29 PM Reporting Lab: [place] [phone] Performing Lab: [address] [address] GLUCOSE-HAND MONITOR 181 mg/dL H Sep 06, 2024 06:13 AM [facility] GLUCOSE-HAND MONITOR CAPILLARY Specime n Type: CAPILLARY Comment: Test performed by: [id number] Meter #: [id number] Ordering Provider: FRANCK TURNER Report Released Date/Time: Sep 06, 2024 06:36 AM Reporting Lab: [place] [phone] Performing Lab: [place] [phone] GLUCOSE-HAND MONITOR 102 mg/dL H Sep 05, 2024 08:47 PM [facility] GLUCOSE-HAND MONITOR CAPILLARY Specime n Type: CAPILLARY Comment: Test performed by: [id number] Meter #: [id number] Ordering Provider: FRANCK TURNER Report Released Date/Time: Sep 06, 2024 02:13 AM Reporting Lab: [address] [address] Performing Lab: [place] [phone] GLUCOSE-HAND MONITOR 103 mg/dL H Sep 05, 2024 04:40 PM [facility] GLUCOSE-HAND MONITOR CAPILLARY Specime n Type: CAPILLARY Comment: AAMIR RN notified Test performed by: [id number] Meter #: [id number] Ordering Provider: FRANCK TURNER Report Released Date/Time: Sep 05, 2024 05:11 PM Reporting Lab: [address] [address] Performing Lab: [address] [address] GLUCOSE-HAND MONITOR 113 mg/dL H Sep 05, 2024 12:06 PM [facility] GLUCOSE-HAND MONITOR CAPILLARY Specime n Type: CAPILLARY Comment: Test performed by: [id number] Meter #: [id number] Ordering Provider: FRANCK TURNER Report Released Date/Time: Sep 05, 2024 12:23 PM Reporting Lab: [address] [address] Performing Lab: [address] [address] GLUCOSE-HAND MONITOR 115 mg/dL H -Sep 05, 2024 06:26 AM [facility] GLUCOSE-HAND MONITOR CAPILLARY Specime n Type: CAPILLARY Comment: AAMIR Correction Dose Test performed by: [id number] Meter #: [id number] Ordering Provider: FRANCK TURNER Report Released Date/Time: Sep 05, 2024 06:43 AM Reporting Lab: [address] [address] Performing Lab: [address] [address] GLUCOSE-HAND MONITOR 111 mg/dL H Sep 04, 2024 08:59 PM [facility] GLUCOSE-HAND MONITOR CAPILLARY Specime n Type: CAPILLARY Comment: AAMIR RN notified Test performed by: [id number] Meter #: [id number] Ordering Provider: FRANCK TURNER Report Released Date/Time: Sep 04, 2024 09:36 PM Reporting Lab: [address] [address] Performing Lab: [address] [address] GLUCOSE-HAND MONITOR 123 mg/dL H Sep 04, 2024 04:41 PM [facility] GLUCOSE-HAND MONITOR CAPILLARY Specime n Type: CAPILLARY Comment: AAMIR RN notified Test performed by: [id number] Meter #: [id number] Ordering Provider: FRANCK TURNER Report Released Date/Time: Sep 04, 2024 05:03 PM Reporting Lab: [address] [address] Performing Lab: [address] [address] GLUCOSE-HAND MONITOR 118 mg/dL H Sep 04, 2024 12:36 PM [facility] GLUCOSE-HAND MONITOR CAPILLARY Specime n Type: CAPILLARY Comment: AAMIR RN notified Test performed by: [id number] Meter #: [id number] Ordering Provider: FRANCK TURNER Report Released Date/Time: Sep 04, 2024 12:53 PM Reporting Lab: [address] [address] Performing Lab: [place] [phone] GLUCOSE-HAND MONITOR 129 mg/dL Sep 04, 2024 12:03 PM [facility] RESPIRATORY VIRUS PANEL (BIOFIRE) NASOPHARYN X Specimen Type: NASOPHARYNX Comment: ~For Test: RESPIRATORY VIRUS PANEL (BIOFIRE) ~ORDER READ BACK TO: FRANCK TURNER 09/04/24@11:30 Ordering Provider: FRANCK TURNER Report Released Date/Time: Sep 04, 2024 11:33 AM Reporting Lab: [place] [phone] Performing Lab: [place] [phone] ADENOVIRUS (BIOFIRE) Not Detected -Not D etected [...] -Not Detected Sep 04, 2024 06:55 AM [facility] MAGNESIUM PLASMA Specimen Type: PLASM A [...] Sep 03, 2024 11:10 AM Reporting Lab: [address] [address] Performing Lab: [address] [address] MAGNESIUM 1.8 mg/dL 1.6-2.6 Sep 04, 2024 06:55 AM [facility] PANEL 1 PLASMA Specimen Type: [...] Sep 03, 2024 11:10 AM Reporting Lab: [address] [address] Performing Lab: [address] [address] CREATININE 0.75 mg/dL 0.72-1.25 UREA NITROGEN 13 mg/dL 9-25 GLUCOSE 105 mg/dL H 74-100 SODIUM 128 mmol/L L 136-145 POTASSIUM 3.9 mmol/L 3.5-5.1 CHLORIDE 99 mmol/L 98-107 CO2 21 mmol/L L 22-29 CALCIUM 8.0 mg/dL L 8.4-10.2 ANION GAP 8 meq/L 3-19 eGFR (CKD-EPI) >90 Sep 04, 2024 06:02 AM [facility] GLUCOSE-HAND MONITOR CAPILLARY Specime n Type: CAPILLARY Comment: Test performed by: [id number] Meter #: [id number] Ordering Provider: FRANCK TURNER Report Released Date/Time: Sep 04, 2024 06:28 AM Reporting Lab: [address] [address] Performing Lab: [address] [address] GLUCOSE-HAND MONITOR 114 mg/dL H 71-99 Sep 03, 2024 05:19 PM [facility] GLUCOSE-HAND MONITOR CAPILLARY Specime n Type: CAPILLARY Comment: Test performed by: [id number] Meter #: [id number] Ordering Provider: FRANCK TURNER Report Released Date/Time: Sep 03, 2024 05:37 PM Reporting Lab: [address] [address] Performing Lab: [address] [address] GLUCOSE-HAND MONITOR 124 mg/dL H 71-99 Sep 03, 2024 04:41 PM [facility] GLUCOSE-HAND MONITOR CAPILLARY Specime n Type: CAPILLARY Comment: Test performed by: [id number] Meter #: [id number] Ordering Provider: FRANCK TURNER Report Released Date/Time: Sep 03, 2024 06:09 PM Reporting Lab: [address] [address] Performing Lab: [address] [address] GLUCOSE-HAND MONITOR 112 mg/dL H 71-99 Sep 03, 2024 01:35 PM [facility] URINE LYTES URINE Specimen Type : URINE Comment: ~Altered mental status with no identifiable cause Ordering Provider: FRANCK TURNER Report Released Date/Time: Sep 02, 2024 04:44 PM Reporting Lab: [address] [address] Performing Lab: [address] [address] SODIUM 130 mmol/L POTASSIUM 47.6 mmol/L CHLORIDE 137 mmol/L Sep 03, 2024 01:35 PM [facility] CREATININE URINE Specimen Type: URINE Comment: ~Altered mental status with no identifiable cause Ordering Provider: FRANCK TURNER Report Released Date/Time: Sep 02, 2024 04:44 PM Reporting Lab: [address] [address] Performing Lab: [address] [address] CREATININE 150.9 mg/dL Sep 03, 2024 01:35 PM [facility] OSMOLALITY URINE Specimen Type: URINE Comment: ~Altered mental status with no identifiable cause Ordering Provider: FRANCK TURNER Report Released Date/Time: Sep 02, 2024 04:44 PM Reporting Lab: [address] [address] Performing Lab: [address] [address] OSMOLALITY 522 mosm/kg 38-1400 Sep 03, 2024 01:35 PM [facility] UREA NITROGEN URINE Specimen Type : URINE Comment: ~Altered mental status with no identifiable cause Ordering Provider: FRANCK TURNER Report Released Date/Time: Sep 02, 2024 04:44 PM Reporting Lab: [address] [address] Performing Lab: [address] [address] UREA NITROGEN 320 mg/dL Sep 03, 2024 01:35 PM [facility] URINALYSIS WITH REFLEX TO CULTURE URINE Specimen Type: URINE Comment: ~Altered mental status with no identifiable cause Ordering Provider: FRANCK TURNER Report Released Date/Time: Sep 02, 2024 04:44 PM Reporting Lab: [address] [address] Performing Lab: [address] [address] URINE COLOR Yellow Colorless-Yellow APPEARANCE CLOUDY H [...] H 0-28 Sep 03, 2024 11:58 AM [facility] GLUCOSE-HAND MONITOR CAPILLARY Specime n Type: CAPILLARY Comment: AAMIR RN notified Test performed by: [id number] Meter #: [id number] Ordering Provider: FRANCK TURNER Report Released Date/Time: Sep 03, 2024 12:15 PM Reporting Lab: [address] [address] Performing Lab: [address] [address] GLUCOSE-HAND MONITOR 135 mg/dL H 71-99 Sep 03, 2024 07:09 AM [facility] GLUCOSE-HAND MONITOR CAPILLARY Specime n Type: CAPILLARY Comment: Test performed by: [id number] Meter #: [id number] Ordering Provider: FRANCK TURNER Report Released Date/Time: Sep 03, 2024 07:26 AM Reporting Lab: [address] [address] Performing Lab: [address] [address] GLUCOSE-HAND MONITOR 120 mg/dL H 71-99 Sep 03, 2024 07:05 AM [facility] CBC/PLT BLOOD Specimen Type: BLOOD No comment entered. Ordering Provider: FRANCK TURNER Report Released Date/Time: Sep 02, 2024 04:29 PM Reporting Lab: [facility] [address] [facility] [address] Performing Lab: [address] [address] WBC 6.9 10*3/uL 5.0-10.0 RBC 3.48 10*6/uL L 4.6-6.2 HGB 9.5 g/dL L 14.0-18.0 HCT 29.1 L 42.0-52.0 MCV 83.6 fL 80.0-94.0 MCH 27.3 pg 27.0-31.0 MCHC 32.6 g/dL 32.0-36.0 PLT 258 10*3/uL 150-450 MPV 10.3 fL 9.0-13.1 RDW 14.8 11.0-16.0 NRBC 0.0 0.0-0.0 Sep 03, 2024 07:05 AM [facility] MAGNESIUM PLASMA Specimen Type: PLASM [...] Sep 02, 2024 04:29 PM Reporting Lab: [address] [address] Performing Lab: [address] [address] MAGNESIUM 1.7 mg/dL 1.6-2.6 Sep 03, 2024 07:05 AM [facility] PANEL 1 PLASMA Specimen Type: [...] Sep 02, 2024 04:29 PM Reporting Lab: [address] [address] Performing Lab: [address] [address] CREATININE 0.82 mg/dL 0.72-1.25 UREA NITROGEN 12 mg/dL 9-25 GLUCOSE 109 mg/dL H 74-100 SODIUM 129 mmol/L L 136-145 POTASSIUM 4.2 mmol/L 3.5-5.1 CHLORIDE 99 mmol/L 98-107 CO2 21 mmol/L L 22-29 CALCIUM 8.1 mg/dL L 8.4-10.2 ANION GAP 9 meq/L 3-19 eGFR (CKD-EPI) 90 Sep 03, 2024 07:05 AM [facility] GLYCOHEMOGLOBIN BLOOD Specimen Type: BLOOD Comment: Prediabetes: 5.7%-6.4% Diabetes: >= 6.5% [facility] guidelines for A1c interpretation: Glycemic control targets are based on Shared Decision Making between clinicians and patients. Criteria used to establish an A1c target recommendation can be found at https://www.ne.gov/qualityandpatientsafety/ and include the use of result accuracy [...] 8.73 and 9.27. Ref: https://ngsp.org/CAPdata.asp. The in-house [employer] D-100 analyzer has a historical CV <= 2%. Contact the laboratory for further performance characteristics of this assay. Ordering Provider: FRANCK TURNER Report Released Date/Time: Sep 02, 2024 04:29 PM Reporting Lab: [address] [address] Performing Lab: [address] [address] GLYCOHEMOGLOBIN 5.6 4.4-5.6 Sep 03, 2024 07:05 AM [facility] OSMOLALITY SERUM Specimen Type: SERUM No comment entered. Ordering Provider: FRANCK TURNER Report Released Date/Time: Sep 02, 2024 04:44 PM Reporting Lab: [address] [address] Performing Lab: [address] [address] OSMOLALITY 271 mosm/kg L 280-300 Sep 02, 2024 08:15 PM [facility] GLUCOSE-HAND MONITOR CAPILLARY Specime n Type: CAPILLARY Comment: AAMIR RN notified Test performed by: [id number] Meter #: [id number] Ordering Provider: FRANCK TURNER Report Released Date/Time: Sep 02, 2024 08:57 PM Reporting Lab: [address] [address] Performing Lab: [address] [address] GLUCOSE-HAND MONITOR 126 mg/dL H 71-99 Sep 02, 2024 06:10 PM [facility] MRSA SURVL NARES DNA NARES [...] not indicate eradication success. Ordering Provider: FRANCK UTRNER Report Released Date/Time: Sep 02, 2024 05:12 PM Reporting Lab: [address] [address] Performing Lab: [address] [address] MRSA SURVL NARES DNA Negative Negative Sep 02, 2024 05:36 PM [facility] GLUCOSE-HAND MONITOR CAPILLARY Specime n Type: CAPILLARY Comment: Test performed by: [id number] Meter #: [id number] Ordering Provider: FRANCK TURNER Report Released Date/Time: Sep 02, 2024 05:53 PM Reporting Lab: [address] [address] Performing Lab: [address] [address] GLUCOSE-HAND MONITOR 127 mg/dL H 71-99 Aug 29, 2024 10:04 PM [facility] URINALYSIS WITH REFLEX TO CULTURE URINE Specimen Type: URINE Comment: ~For Test: URINALYSIS WITH REFLEX TO CULTURE ~REORDER Ordering Provider: FELISA COLE Report Released Date/Time: Aug 29, 2024 09:36 PM Reporting Lab: [address] [address] Performing Lab: [address] [address] URINE COLOR Yellow Colorless-Yellow APPEARANCE Clear Clear [...] /[LPF] 0-28 Aug 29, 2024 08:32 PM ELICIA-Sav [facility] HIGH SENSITIVITY TROPONIN I PLASMA Specimen [...] I information resource can be reached in [facility] in the Tools menu, under the Education [...] Aug 29, 2024 07:55 PM Reporting Lab: [address] [address] Performing Lab: [address] [address] HIGH SENSITIVITY TROPONIN I 7 4-35 Aug 29, 2024 08:32 PM [facility] CBC/PLT BLOOD Specimen Type: BLOOD No comment entered. Ordering Provider: FELISA COLE Report Released Date/Time: Aug 29, 2024 07:55 PM Reporting Lab: [address] [address] Performing Lab: [address] [address] WBC 11.2 10*3/uL H 5.0-10.0 RBC 3.97 10*6/uL L 4.6-6.2 HGB 10.9 g/dL L 14.0-18.0 HCT 33.5 L 42.0-52.0 MCV 84.4 fL 80.0-94.0 MCH 27.5 pg 27.0-31.0 MCHC 32.5 g/dL 32.0-36.0 PLT 230 10*3/uL 150-450 MPV 10.2 fL 9.0-13.1 RDW 14.6 11.0-16.0 NRBC 0.0 0.0-0.0 Aug 29, 2024 08:32 PM [facility] PANEL 5 PLASMA Specimen Type: PLASM [...] I information resource can be reached in [facility] in the Tools menu, under the Education [...] Aug 29, 2024 07:55 PM Reporting Lab: [address] [address] Performing Lab: [address] [address] CREATININE 0.85 mg/dL 0.72-1.25 UREA NITROGEN 15 [...] 18 /min 95 % 0 [place] [facility] Sep 02, 2024 05:01 PM 0 [place] [facility] Advance Directives: All historical and current Section Date Range: From patient's date of to the date document was created. This section includes ALL of a patient's completed or amended [place] Advance and Rescinded Directives. The entries below indicate that a directive exists for the patient, but an actual copy is not included with this document. The data comes from all [place] facilities. Date Advance Directives Provider Source Mar 08, 2024 ADVANCE DIRECTIVE DISCUSSION [facility] Radiology Reports: +/- 30 days [...] the Encounter. The data comes from all [place] treatment facilities. Date/Time Radiology Report Provider Source Sep 06, 2024 01:40 PM MRI BRAIN W & W/O: LUIS MANUEL PERDOMO [id number] -1945 M Exm Date: SEP 06, 2024@13:40 Req Phys: FRANCK TURNER Loc: 5-MED/TEL/09-06-2024@19:09 Img Loc: [facility] Service: [place] [address] (Case [id number] COMPLETE) MRI BRAIN W & W/O (MRI Detailed) CPT:00777 Contrast Media : Gadolinium Reason for Study: SEE CLINICAL HISTORY Pharmaceutical: GADOTERIDOL 279.3MG/ML 20ML INJ, 19ml Clinical History: MRI Screening (Required): IMPLANTED DEVICE DOCUMENTATION IMPLANTED DEVICE DOCUMENTATION NOT FOUND Does the have any Cardiac Implants? None Does the [place] have any implanted stimulators? None Does the [place] have cochlear implants? No Does the [place] have Cerebral aneurysm clip(s)? I don't know [...] 06, 2024 Date Verified: SEP 06, 2024 Analyst Micro[facility] Lab E-Sig: Report: MRI brain without and with [...] Staff: ARCENIO LEYVA, Staff Radiologist Verified by fondant puff maker for ARCENIO LEYVA /MRS LEYVAARCENIO-CDD [facility] Sep 06, 2024 01:40 PM MRI C SPINE W & W/ O CONTRAST(FURTHER SEQUENCES): LUIS MANUEL PERDOMO [id number] -1945 M Exm Date: SEP 06, 2024@13:40 Req Phys: FRANCK TURNER Loc: 5-MED/TEL/09-07-2024@06:42 Img Loc: [facility] Service: [place] [address] (Case [id number] COMPLETE) MRI C SPINE W & W/O CONTRAST(FURT(MRI Detailed) CPT:56422 Contrast Media : Gadolinium Reason for Study: [...] the have cochlear implants? No Does the [place] have Cerebral aneurysm clip(s)? I don't know Does the [place] have any shrapnel? I don't know If [...] 07, 2024 Date Verified: SEP 07, 2024 Analyst Microbiology Lab E-Sig: Report: EXAMINATION: MRI OF THE CERVICAL [...] Interpreting Staff: HUANG TAI, Radiologist Verified by fondant puff maker for HUANG TAI /HUANG WHEATLEY-Sav [facility] Sep 03, 2024 10:45 AM CHEST SINGLE(1) EW: LUIS MANUEL PERDOMO [id number] -1945 M Exm Date: SEP 03, 2024@10:45 Req Phys: FRANCK TURNER [facility] Loc: 5-MED/TEL/09-03-2024@10:56 Img Loc: [facility] RADIOLOGY Service: [place] [address] (Case [id number] COMPLETE)CHEST SINGLE(1) VIEW (RAD Detailed) CPT:05347 Proc Modifiers : PORTABLE EXAM Reason for Study: Eval volume status Clinical History: Report Status: Verified Date Reported: SEP 03, 2024 Date Verified: SEP 03, 2024 Analyst Microbiology Lab E-Sig: Report: EXAMINATION: SINGLE VIEW CHEST CLINICAL [...] Interpreting Staff: HUANG TAI, Radiologist Verified by fondant puff maker for HUANG TAI /HUANG WHEATLEYSav [facility] Aug 29, 2024 08:[address] HEAD W/O CONT: LUIS MANUEL PERDOMO [id number] -1945 M Exm Date: AUG 29, 2024@20:28 Req Phys: FELISA COLE Loc: ED/4P-12A (Req'g Loc) Img Loc: CT SCAN Service: [place] [address] (Case [id number] COMPLETE) CT HEAD W/O CONT (CT Detailed) CPT:89400 Reason for Study: SEE CLINICAL HISTORY Clinical History: REASON FOR SEND OUT: ATTENDING PHYSICIAN NAME: New transient neurological s/s - suspected TIA HISTORY/REASON FOR EXAM: confusion Report Status: Verified Date Reported: AUG 29, 2024 Date Verified: AUG 29, 2024 Analyst Microbiology Lab E-Sig: Report: HISTORY confusion COMPARISON No prior [...] Staff: ABDIRAHMAN DAVIDSON Staff Physician Verified by fondant puff maker for ABDIRAHMAN DAVIDSON /[facility] Pathology [...] the Encounter. The [place] comes from all [place]. Date/Time Pathology Report Provider Source Sep 03, 2024 01:35 PM LR MICROBIOLOGY RE PORT: Reporting Lab: [facility] [CLIA# [id number]] [address] [place] [id number] Accession [UID]: [id number] [[id number]] Received: Sep 03, 2024@14:02 Collection sample: URINE, [...] Performing Laboratory: Bacteriology Report Performed By: [facility] [CLIA# [id number]] [address] [place] [id number] MAGDY CALABRESE-D [facility] Sep 02, 2024 06:00 PM LR MICROBIOLOGY RE PORT: Reporting Lab: [facility] [CLIA# [id number]] [address] [place] [id number] Accession [UID]: [id number] [[id number]] Received: Sep 02, 2024@18:07 Collection sample: BLD CULTURE BOTTLES Collection date: Sep 02, 2024 18:00 Site/Specimen: BLOOD Provider: FRANCK TURNER Comment on specimen: L HAND Test(s) ordered: CULTURE, BLOOD................ completed: Sep 08, 2024 * BACTERIOLOGY FINAL REPORT => Sep 08, 2024 08:25 TECH CODE: [id number] Bacteriology Remark(s): Blood culture status=NO GROWTH (unless notified otherwise) 09/03/2024 AEROBIC: NO GROWTH ANAEROBIC: NO GROWTH =--=--=--=--=--=--=--=--=--=-- =--=--=--=--=--=--=--=--=--=-- =--=--=--=--=--=-- Performing Laboratory: Bacteriology Report Performed By: [facility] [CLIA# [id number]] [address] [place], [place] [phone] MAGDY [facility]ABRESE [facility] Aug 29, 2024 10:18 PM LR MICROBIOLOGY RE PORT: Reporting Lab: [facility] [CLIA# [id number]] [address] [place], [place] [phone] Accession [UID]: [id number] [[id number]] Received: Aug 29, 2024@22:18 Collection sample: URINE, CLEAN CATCH Collection date: Aug 29, 2024 22:18 Site/Specimen: URINE Provider: FELISA COLE Test(s) ordered: CULTURE, URINE................ completed: Aug 31, 2024 09:51 * BACTERIOLOGY FINAL REPORT => Aug 31, 2024 09:51 TECH CODE: [id number] Bacteriology Remark(s): NO GROWTH 08/30/2024 <10,000 CFU/ML. 08/31/2024 =--=--=--=--=--=--=--=--=--=-- =--=--=--=--=--=--=--=--=--=-- =--=--=--=--=--=-- Performing Laboratory: Bacteriology Report Performed By: [facility] [CLIA# [id number]] [address] [place] [address] MAGDY CALABRESE-Sav [facility]
--- OUTSIDE RECORDS SUMMARY | 2024-09-02 12:53 | XMS_ITS ---
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 Name Role Phone YULISSA HENDERSON Primary [...] PLAN F Mar 24, 2014 PLAN F [id number] [phone] LUIS MANUEL PERDOMO PATIENT [facility] [place] [facility] PREFERRED PROVIDER ORGANIZAT ION (PPO) [facility] Sep 21, 2012 [id number] [phone] LUIS MANUEL PERDOMO PATIENT [employer] ([id number]) PRESCRIPT ION [id number] Sep 21, 2012 [id number] LUIS MANUEL PERDOMO PATIENT MEDICARE (WNR) MEDICARE (M) PART B Sep 21, 2012 PART B [id number] NOEMI PERDOMO PATIENT MEDICARE (WNR) MEDICARE (M) PART A Jan 22, 2011 PART A [id number] LEANNE, NOEMI PATIENT MEDICARE PART D (WNR) MEDICARE (M) PART D Mar 24, 2014 PART D [id number] LUIS MANUEL PERDOMO PATIENT Selected Encounter This section includes the information on record at DC for the Encounter. Date/Time Encounter Type Encounter Description Reason Pro vider Source Sep 02, 2024 04:53 PM Inpatient Visit DAILY HOSPITALIZATION DATA [facility] Encounter Template Text not used by DC Plan of Treatment: Future Appointments (+ 6 months) and Future Tests (+/- 45 days) The Plan of Treatment section includes future care activities for the [facility] This section includes future appointments and future orders which are active, pending or scheduled. Future Appointments This section includes appointments that were scheduled to occur 6 months from the date of the Encounter, up to a maximum of 20 appointments. The data comes from all [place] treatment facilities. Appointment Date/Time Appointment Type Appointme nt Facility Name Sep 13, 2024 08:00 AM AMBULATORY - NONE [facility] Sep 30, 2024 01:30 PM AMBULATORY - SURGERY [facility] Active, Pending, and Scheduled Orders This section includes a listing of several types of active, pending, and scheduled orders, including clinic medications orders, diagnostic test orders, procedure orders and consult orders; where the start date of the order is 45 days before the date of the Encounter or 45 days after the date of theEncounter. The data comes from all [facility] facilities. Test Date/Time Test Type Test Details Facility Name Sep 13, 2024 01:33 PM Consult Order [facility] Cons Substitute Nurse's Choice [facility] Lab Results: +/- 30 days of the encounter This section includes the Chemistry and Hematology Lab Results on record with DC for the patient. Radiology Reports and Pathology Reports are provided separately, in subsequent sections. Lab Results This section contains the Chemistry/Hematology Results that were resulted 30 days before or 30 daysafter the date of the Encounter. Date/Time Source Result Type Result - Unit Interpretation Reference Range Specimen Type Comment Sep 09, 2024 12:16 PM [facility] GLUCOSE-HAND MONITOR CAPILLARY Specimen Type: CAPILLARY Comment: Test performed by: [id number] Meter #: [id number] Ordering Provider: FRANCK TURNER Report Released Date/Time: Sep 09, 2024 12:33 PM Reporting Lab: [address] [address] Performing Lab: [address] [address] GLUCOSE-HAND MONITOR 116 mg/dL H Sep 09, 2024 06:07 AM [facility] GLUCOSE-HAND MONITOR CAPILLARY Specime n Type: CAPILLARY Comment: Test performed by: [id number] Meter #: [id number] Ordering Provider: FRANCK TURNER Report Released Date/Time: Sep 09, 2024 08:17 AM Reporting Lab: [address] [address] Performing Lab: [address] [address] GLUCOSE-HAND MONITOR 112 mg/dL H Sep 08, 2024 09:13 PM [facility] GLUCOSE-HAND MONITOR CAPILLARY Specime n Type: CAPILLARY Comment: Test performed by: [id number] Meter #: [id number] Ordering Provider: FRANCK TURNER Report Released Date/Time: Sep 08, 2024 09:31 PM Reporting Lab: [address] [address] Performing Lab: [address] [address] GLUCOSE-HAND MONITOR 107 mg/dL H Sep 08, 2024 03:49 PM [facility] GLUCOSE-HAND MONITOR CAPILLARY Specime n Type: CAPILLARY Comment: AAMIR RN notified Test performed by: [id number] Meter #: [id number] Ordering Provider: FRANCK TURNER Report Released Date/Time: Sep 08, 2024 04:33 PM Reporting Lab: [address] [address] Performing Lab: [address] [address] GLUCOSE-HAND MONITOR 162 mg/dL H Sep 08, 2024 11:43 AM [facility] GLUCOSE-HAND MONITOR CAPILLARY Specime n Type: CAPILLARY Comment: AAMIR RN notified Test performed by: [id number] Meter #: [id number] Ordering Provider: FRANCK TURNER Report Released Date/Time: Sep 08, 2024 12:03 PM Reporting Lab: [address] [address] Performing Lab: [address] [address] GLUCOSE-HAND MONITOR 133 mg/dL H Sep 08, 2024 06:13 AM [facility] GLUCOSE-HAND MONITOR CAPILLARY Specime n Type: CAPILLARY Comment: Test performed by: [id number] Meter #: [id number] Ordering Provider: FRANCK TURNER Report Released Date/Time: Sep 08, 2024 06:46 AM Reporting Lab: [address] [address] Performing Lab: [address] [address] GLUCOSE-HAND MONITOR 104 mg/dL H Sep 07, 2024 07:59 PM [facility] GLUCOSE-HAND MONITOR CAPILLARY Specime n Type: CAPILLARY Comment: Test performed by: [id number] Meter #: [id number] Ordering Provider: FRANCK TURNER Report Released Date/Time: Sep 07, 2024 09:05 PM Reporting Lab: [address] [address] Performing Lab: [address] [address] GLUCOSE-HAND MONITOR 107 mg/dL H Sep 07, 2024 04:39 PM [facility] GLUCOSE-HAND MONITOR CAPILLARY Specime n Type: CAPILLARY Comment: Test performed by: [id number] Meter #: [id number] Ordering Provider: FRANCK TURNER Report Released Date/Time: Sep 07, 2024 05:09 PM Reporting Lab: [address] [address] Performing Lab: [address] [address] GLUCOSE-HAND MONITOR 105 mg/dL H Sep 07, 2024 11:41 AM [facility] GLUCOSE-HAND MONITOR CAPILLARY Specime n Type: CAPILLARY Comment: Test performed by: [id number] Meter #: [id number] Ordering Provider: FRANCK TURNER Report Released Date/Time: Sep 07, 2024 12:41 PM Reporting Lab: [address] [address] Performing Lab: [address] [address] GLUCOSE-HAND MONITOR 144 mg/dL H Sep 07, 2024 05:56 AM [facility] GLUCOSE-HAND MONITOR CAPILLARY Specime n Type: CAPILLARY Comment: Test performed by: [id number] Meter #: [id number] Ordering Provider: FRANCK TURNER Report Released Date/Time: Sep 07, 2024 06:31 AM Reporting Lab: [address] [address] Performing Lab: [address] [address] GLUCOSE-HAND MONITOR 96 mg/dL Sep 06, 2024 08:10 PM [facility] GLUCOSE-HAND MONITOR CAPILLARY Specime n Type: CAPILLARY Comment: Test performed by: [id number] Meter #: [id number] Ordering Provider: FRANCK TURNER Report Released Date/Time: Sep 06, 2024 08:52 PM Reporting Lab: [address] [address] Performing Lab: [address] [address] GLUCOSE-HAND MONITOR 124 mg/dL H Sep 06, 2024 04:27 PM [facility] GLUCOSE-HAND MONITOR CAPILLARY Specime n Type: CAPILLARY Comment: Test performed by: [id number] Meter #: [id number] Ordering Provider: FRANCK TURNER Report Released Date/Time: Sep 06, 2024 05:15 PM Reporting Lab: [address] [address] Performing Lab: [address] [address] GLUCOSE-HAND MONITOR 107 mg/dL H Sep 06, 2024 12:12 PM [facility] GLUCOSE-HAND MONITOR CAPILLARY Specime n Type: CAPILLARY Comment: Test performed by: [id number] Meter #: [id number] Ordering Provider: FRANCK TURNER Report Released Date/Time: Sep 06, 2024 12:29 PM Reporting Lab: [address] [address] Performing Lab: [address] [address] GLUCOSE-HAND MONITOR 181 mg/dL H -Sep 06, 2024 06:13 AM [facility] GLUCOSE-HAND MONITOR CAPILLARY Specime n Type: CAPILLARY Comment: Test performed by: [id number] Meter #: [id number] Ordering Provider: FRANCK TURNER Report Released Date/Time: Sep 06, 2024 06:36 AM Reporting Lab: [address] [address] Performing Lab: [address] [address] GLUCOSE-HAND MONITOR 102 mg/dL H Sep 05, 2024 08:47 PM [facility] GLUCOSE-HAND MONITOR CAPILLARY Specime n Type: CAPILLARY Comment: Test performed by: [id number] Meter #: [id number] Ordering Provider: FRANCK TURNER Report Released Date/Time: Sep 06, 2024 02:13 AM Reporting Lab: [address] [address] Performing Lab: [address] [address] GLUCOSE-HAND MONITOR 103 mg/dL H Sep 05, 2024 04:40 PM [facility] GLUCOSE-HAND MONITOR CAPILLARY Specime n Type: CAPILLARY Comment: AAMIR RN notified Test performed by: [id number] Meter #: [id number] Ordering Provider: FRANCK TURNER Report Released Date/Time: Sep 05, 2024 05:11 PM Reporting Lab: [address] [address] Performing Lab: [address] [address] GLUCOSE-HAND MONITOR 113 mg/dL H Sep 05, 2024 12:06 PM [facility] GLUCOSE-HAND MONITOR CAPILLARY Specime n Type: CAPILLARY Comment: Test performed by: [id number] Meter #: [id number] Ordering Provider: FRANCK TURNER Report Released Date/Time: Sep 05, 2024 12:23 PM Reporting Lab: [address] [address] Performing Lab: [address] [address] GLUCOSE-HAND MONITOR 115 mg/dL H Sep 05, 2024 06:26 AM [facility] GLUCOSE-HAND MONITOR CAPILLARY Specime n Type: CAPILLARY Comment: AAMIR Correction Dose Test performed by: [id number] Meter #: [id number] Ordering Provider: FRANCK TURNER Report Released Date/Time: Sep 05, 2024 06:43 AM Reporting Lab: [address] [address] Performing Lab: [address] [address] GLUCOSE-HAND MONITOR 111 mg/dL H Sep 04, 2024 08:59 PM [facility] GLUCOSE-HAND MONITOR CAPILLARY Specime n Type: CAPILLARY Comment: AAMIR RN notified Test performed by: [id number] Meter #: [id number] Ordering Provider: FRANCK TURNER Report Released Date/Time: Sep 04, 2024 09:36 PM Reporting Lab: [address] [address] Performing Lab: [address] [address] GLUCOSE-HAND MONITOR 123 mg/dL H Sep 04, 2024 04:41 PM [facility] GLUCOSE-HAND MONITOR CAPILLARY Specime n Type: CAPILLARY Comment: AAMIR RN notified Test performed by: [id number] Meter #: [id number] Ordering Provider: FRANCK TURNER Report Released Date/Time: Sep 04, 2024 05:03 PM Reporting Lab: [address] [address] Performing Lab: [address] [address] GLUCOSE-HAND MONITOR 118 mg/dL H Sep 04, 2024 12:36 PM [facility] GLUCOSE-HAND MONITOR CAPILLARY Specime n Type: CAPILLARY Comment: AAMIR RN notified Test performed by: [id number] Meter #: [id number] Ordering Provider: FRANCK TURNER Report Released Date/Time: Sep 04, 2024 12:53 PM Reporting Lab: [address] [address] Performing Lab: [place] [address] GLUCOSE-HAND MONITOR 129 mg/dL H 71-99 Sep 04, 2024 12:03 PM [facility] RESPIRATORY VIRUS PANEL (BIOFIRE) NASOPHARYN X Specimen Type: NASOPHARYNX Comment: ~For Test: RESPIRATORY VIRUS PANEL (BIOFIRE) ~ORDER READ BACK TO: FRANCK TURNER 09/04/24@11:30 Ordering Provider: FRANCK TURNER Report Released Date/Time: Sep 04, 2024 11:33 AM Reporting Lab: [place] [phone] Performing Lab: [place] [phone] ADENOVIRUS (BIOFIRE) Not Detected -Not D etected [...] -Not Detected Sep 04, 2024 06:55 AM [facility] MAGNESIUM PLASMA Specimen Type: PLASM [...] 03, 2024 11:10 AM Reporting Lab: [facility] [address] [address] Performing Lab: [place] [address] [address] MAGNESIUM 1.8 mg/dL 1.6-2.6 Sep 04, 2024 06:55 AM [facility] PANEL 1 PLASMA Specimen Type: [...] Sep 03, 2024 11:10 AM Reporting Lab: [address] [address] Performing Lab: [address] CREATININE 0.75 mg/dL 0.72-1.25 UREA NITROGEN 13 mg/dL 9-25 GLUCOSE 105 mg/dL H 74-100 SODIUM 128 mmol/L L 136-145 POTASSIUM 3.9 mmol/L 3.5-5.1 CHLORIDE 99 mmol/L 98-107 CO2 21 mmol/L L 22-29 CALCIUM 8.0 mg/dL L 8.4-10.2 ANION GAP 8 meq/L 3-19 eGFR (CKD-EPI) >90 Sep 04, 2024 06:02 AM [facility] GLUCOSE-HAND MONITOR CAPILLARY Specime n Type: CAPILLARY Comment: Test performed by: [id number] Meter #: [id number] Ordering Provider: FRANCK TURNER Report Released Date/Time: Sep 04, 2024 06:28 AM Reporting Lab: [address] Performing Lab: [address] GLUCOSE-HAND MONITOR 114 mg/dL H 71-99 Sep 03, 2024 05:19 PM [facility] GLUCOSE-HAND MONITOR CAPILLARY Specime n Type: CAPILLARY Comment: Test performed by: [id number] Meter #: [id number] Ordering Provider: FRANCK TURNER Report Released Date/Time: Sep 03, 2024 05:37 PM Reporting Lab: [address] Performing Lab: [address] [address] GLUCOSE-HAND MONITOR 124 mg/dL H 71-99 Sep 03, 2024 04:41 PM [facility] GLUCOSE-HAND MONITOR CAPILLARY Specime n Type: CAPILLARY Comment: Test performed by: [id number] Meter #: [id number] Ordering Provider: FRANCK TURNER Report Released Date/Time: Sep 03, 2024 06:09 PM Reporting Lab: [address] [address] Performing Lab: [address] [address] GLUCOSE-HAND MONITOR 112 mg/dL H 71-99 Sep 03, 2024 01:35 PM [facility] CREATININE URINE Specimen Type: URINE Comment: ~Altered mental status with no identifiable cause Ordering Provider: FRANCK TURNER Report Released Date/Time: Sep 02, 2024 04:44 PM Reporting Lab: [facility] [address] [place] [address] Performing Lab: [address] [address] CREATININE 150.9 mg/dL Sep 03, 2024 01:35 PM [facility] URINE LYTES URINE Specimen Type : URINE Comment: ~Altered mental status with no identifiable cause Ordering Provider: FRANCK TURNER Report Released Date/Time: Sep 02, 2024 04:44 PM Reporting Lab: [address] [address] Performing Lab: [address] [address] SODIUM 130 mmol/L POTASSIUM 47.6 mmol/L CHLORIDE 137 mmol/L Sep 03, 2024 01:35 PM [facility] UREA NITROGEN URINE Specimen Type : URINE Comment: ~Altered mental status with no identifiable cause Ordering Provider: FRANCK TURNER Report Released Date/Time: Sep 02, 2024 04:44 PM Reporting Lab: [address] [address] Performing Lab: [address] [address] UREA NITROGEN 320 mg/dL Sep 03, 2024 01:35 PM [facility] URINALYSIS WITH REFLEX TO CULTURE URINE Specimen Type: URINE Comment: ~Altered mental status with no identifiable cause Ordering Provider: FRANCK TURNER Report Released Date/Time: Sep 02, 2024 04:44 PM Reporting Lab: [address] [address] Performing Lab: [address] [address] URINE COLOR Yellow Colorless-Yellow APPEARANCE CLOUDY H [...] H 0-28 Sep 03, 2024 01:35 PM [facility] OSMOLALITY URINE Specimen Type: URINE Comment: ~Altered mental status with no identifiable cause Ordering Provider: FRANCK TURNER Report Released Date/Time: Sep 02, 2024 04:44 PM Reporting Lab: [place] [phone] Performing Lab: [place] [phone] OSMOLALITY 522 mosm/kg 38-1400 Sep 03, 2024 11:58 AM [facility] GLUCOSE-HAND MONITOR CAPILLARY Specime n Type: CAPILLARY Comment: AAMIR RN notified Test performed by: [id number] Meter #: [id number] Ordering Provider: FRANCK TURNER Report Released Date/Time: Sep 03, 2024 12:15 PM Reporting Lab: [address] [address] Performing Lab: [address] [address] GLUCOSE-HAND MONITOR 135 mg/dL H Sep 03, 2024 07:09 AM [facility] GLUCOSE-HAND MONITOR CAPILLARY Specime n Type: CAPILLARY Comment: Test performed by: [id number] Meter #: [id number] Ordering Provider: FRANCK TURNER Report Released Date/Time: Sep 03, 2024 07:26 AM Reporting Lab: [address] [address] Performing Lab: [address] [address] GLUCOSE-HAND MONITOR 120 mg/dL H Sep 03, 2024 07:05 AM [facility] CBC/PLT BLOOD Specimen Type: BLOOD No comment entered. Ordering Provider: FRANCK TURNER Report Released Date/Time: Sep 02, 2024 04:29 PM Reporting Lab: [address] [address] Performing Lab: [address] [address] WBC 6.9 10*3/uL 5.0-10.0 RBC 3.48 10*6/uL L 4.6-6.2 HGB 9.5 g/dL L 14.0-18.0 HCT 29.1 L 42.0-52.0 MCV 83.6 fL 80.0-94.0 MCH 27.3 pg 27.0-31.0 MCHC 32.6 g/dL 32.0-36.0 PLT 258 10*3/uL 150-450 MPV 10.3 fL 9.0-13.1 RDW 14.8 11.0-16.0 NRBC 0.0 0.0-0.0 Sep 03, 2024 07:05 AM [facility] MAGNESIUM PLASMA Specimen Type: PLASM [...] Sep 02, 2024 04:29 PM Reporting Lab: [address] [address] Performing Lab: [address] [address] MAGNESIUM 1.7 mg/dL 1.6-2.6 Sep 03, 2024 07:05 AM [facility] PANEL 1 PLASMA Specimen Type: [...] Sep 02, 2024 04:29 PM Reporting Lab: [address] [address] Performing Lab: [address] [address] CREATININE 0.82 mg/dL 0.72-1.25 UREA NITROGEN 12 mg/dL 9-25 GLUCOSE 109 mg/dL H 74-100 SODIUM 129 mmol/L L 136-145 POTASSIUM 4.2 mmol/L 3.5-5.1 CHLORIDE 99 mmol/L 98-107 CO2 21 mmol/L L 22-29 CALCIUM 8.1 mg/dL L 8.4-10.2 ANION GAP 9 meq/L 3-19 eGFR (CKD-EPI) 90 Sep 03, 2024 07:05 AM [facility] GLYCOHEMOGLOBIN BLOOD Specimen Type: BLOOD Comment: Prediabetes: 5.7%-6.4% Diabetes: >= 6.5% [facility] guidelines for A1c interpretation: Glycemic control targets are based on Shared Decision Making between clinicians and patients. Criteria used to establish an A1c target recommendation can be found at https://www.ar.gov/qualityandpatientsafety/ and include the use of result accuracy [...] 8.73 and 9.27. Ref: https://ngsp.org/CAPdata.asp. The in-house 4th aspect-[employer] D-100 analyzer has a historical CV <= 2%. Contact the laboratory for further performance characteristics of this assay. Ordering Provider: FRANCK TURNER Report Released Date/Time: Sep 02, 2024 04:29 PM Reporting Lab: [address] [address] Performing Lab: [place] [phone] GLYCOHEMOGLOBIN 5.6 4.4-5.6 Sep 03, 2024 07:05 AM [facility] OSMOLALITY SERUM Specimen Type: SERUM No comment entered. Ordering Provider: FRANCK TURNER Report Released Date/Time: Sep 02, 2024 04:44 PM Reporting Lab: [address] [address] Performing Lab: [address] [address] OSMOLALITY 271 mosm/kg L 280-300 Sep 02, 2024 08:15 PM [facility] GLUCOSE-HAND MONITOR CAPILLARY Specime n Type: CAPILLARY Comment: AAMIR DEXTER notified Test performed by: [id number] Meter #: [id number] Ordering Provider: FRANCK TURNER Report Released Date/Time: Sep 02, 2024 08:57 PM Reporting Lab: [address] [address] Performing Lab: [address] [address] GLUCOSE-HAND MONITOR 126 mg/dL H 71-99 Sep 02, 2024 06:10 PM [facility] MRSA SURVL NARES DNA NARES [...] Sep 02, 2024 05:12 PM Reporting Lab: [address] [address] Performing Lab: [address] [address] MRSA SURVL NARES DNA Negative Negative Sep 02, 2024 05:36 PM [facility] GLUCOSE-HAND MONITOR CAPILLARY Specime n Type: CAPILLARY Comment: Test performed by: [id number] Meter #: [id number] Ordering Provider: FRANCK TURNER Report Released Date/Time: Sep 02, 2024 05:53 PM Reporting Lab: [address] [address] Performing Lab: [address] [address] GLUCOSE-HAND MONITOR 127 mg/dL H 71-99 Aug 29, 2024 10:04 PM [facility] URINALYSIS WITH REFLEX TO CULTURE URINE Specimen Type: URINE Comment: ~For Test: URINALYSIS WITH REFLEX TO CULTURE ~REORDER Ordering Provider: FELISA COLE Report Released Date/Time: Aug 29, 2024 09:36 PM Reporting Lab: [address] [address] Performing Lab: [address] [address] URINE COLOR Yellow Colorless-Yellow APPEARANCE Clear Clear [...] /[LPF] 0-28 Aug 29, 2024 08:32 PM [facility] HIGH SENSITIVITY TROPONIN I PLASMA [...] 29, 2024 07:55 PM Reporting Lab: [address] [address] Performing Lab: [address] [address] HIGH SENSITIVITY TROPONIN I 7 4-35 Aug 29, 2024 08:32 PM [facility] CBC/PLT BLOOD Specimen Type: BLOOD No comment entered. Ordering Provider: FELISA COLE Report Released Date/Time: Aug 29, 2024 07:55 PM Reporting Lab: [address] [address] Performing Lab: [address] [address] WBC 11.2 10*3/uL H 5.0-10.0 RBC 3.97 10*6/uL L 4.6-6.2 HGB 10.9 g/dL L 14.0-18.0 HCT 33.5 L 42.0-52.0 MCV 84.4 fL 80.0-94.0 MCH 27.5 pg 27.0-31.0 MCHC 32.5 g/dL 32.0-36.0 PLT 230 10*3/uL 150-450 MPV 10.2 fL 9.0-13.1 RDW 14.6 11.0-16.0 NRBC 0.0 0.0-0.0 Aug 29, 2024 08:32 PM [facility] PAN[facility] 5 PLASMA Specimen Type: [...] 29, 2024 07:55 PM Reporting Lab: [address] [address] Performing Lab: [address] [address] CREATININE 0.85 mg/dL 0.72-1.25 UREA NITROGEN 15 [...] 18 /min 95 % 0 [place] Sep 02, 2024 05:01 PM 0 [place] Advance Directives: All historical and [...] 08, 2024 ADVANCE DIRECTIVE DISCUSSION [facility] Radiology Reports: +/- 30 days [...] the Encounter. The data comes from all [place] treatment facilities. Date/Time Radiology Report Provider Source Sep 06, 2024 01:40 PM MRI BRAIN W & W/O: LUIS MANUEL PERDOMO [id number] -1945 M Exm Date: SEP 06, 2024@13:40 Req Phys: FRANCK TURNER Loc: 5-MED/TEL/09-06-2024@19:09 Img Loc: [facility] Service: [facility] [place] [id number] (Case [id number] COMPLETE) MRI BRAIN W & W/O (MRI Detailed) CPT:15147 Contrast Media : Gadolinium Reason for Study: SEE CLINICAL HISTORY Pharmaceutical: GADOTERIDOL 279.3MG/ML 20ML INJ, 19ml Clinical History: MRI Screening (Required): IMPLANTED DEVICE DOCUMENTATION IMPLANTED DEVICE DOCUMENTATION NOT FOUND Does the have any Cardiac Implants? None Does the have any implanted stimulators? None Does the have cochlear implants? No Does the Ellerbe have Cerebral aneurysm clip(s)? I don't know Does the [place] have any shrapnel? I don't know If [...] 06, 2024 Date Verified: SEP 06, 2024 Director Of Quality Control E-Sig: Report: MRI brain without and with [...] Staff: ARCENIO LEYVA, Staff Radiologist Verified by municipal bond trader for ARCENIO LEYVA /MRS LEYVAARCENIO-MALKA [facility] Sep 06, 2024 01:40 PM MRI C SPINE W & W/ O CONTRAST(FURTHER SEQUENCES): LUIS MANUEL PERDOMO [id number] -1945 M Exm Date: SEP 06, 2024@13:40 Req Phys: FRANCK TURNER Pat Loc: 5-MED/TEL/09-07-2024@06:42 [facility] Loc: [facility] Service: [facility] [place] [id number] (Case [id number] COMPLETE) MRI C SPINE W & W/O CONTRAST(FURT(MRI Detailed) CPT:84364 Contrast Media : Gadolinium Reason for Study: SEE CLINICAL HISTORY Pharmaceutical: GADOTERIDOL 279.3MG/ML 20ML INJ, 19ml Clinical History: STATUS OF PLAIN FILMS:Not performed (Provide justification for MR W/O prior plain films below.) MRI for MS MRI Screening (Required): IMPLANTED DEVICE DOCUMENTATION IMPLANTED DEVICE DOCUMENTATION NOT FOUND Does the Ellerbe have any Cardiac Implants? None Does the [place]erbe have any implanted stimulators? None Does the [place] have cochlear implants? No Does the have Cerebral aneurysm clip(s)? I don't know Does the Ellerbe have any shrapnel? I don't know If yes, where in your body? Please list other implants not listed above: MRI table has a weight limit of 551 lbs. Ellerbe's Weight: *212 lb [96.16 kg] (09/04/2024 05:19) Is this patient claustrophobic?: No REASON FOR EXAM: MULTIPLE SCLEROSIS (indicate suspected or established) PERTINENT PATIENT HISTORY: MS c/f flare Risk factors for GADOLINIUM NEPHROGENIC SYSTEMIC SCLEROSIS: Report Status: Verified Date Reported: SEP 07, 2024 Date Verified: SEP 07, 2024 Director Of Quality Control E-Sig: Report: EXAMINATION: MRI OF THE CERVICAL [...] Interpreting Staff: HUANG TAI, Radiologist Verified by municipal bond trader for HUANG TAI /HUANG WHEATLEY-[facility] Sep 03, 2024 10:45 AM CHEST SINGLE(1) EW: LEANNELUIS MANUEL FINCH [id number] -1945 M Exm Date: SEP 03, 2024@10:45 Req Phys: FRANCK TURNER [facility] Loc: 5-MED/TEL/09-03-2024@10:56 Img Loc: [facility] Service: [facility] [place] [address] (Case [id number] COMPLETE)CHEST SINGLE(1) VIEW (RAD Detailed) CPT:63206 Proc Modifiers : PORTABLE EXAM Reason for Study: Eval volume status Clinical History: Report Status: Verified Date Reported: SEP 03, 2024 Date Verified: SEP 03, 2024 Director Of Quality Control E-Sig: Report: EXAMINATION: SINGLE VIEW CHEST CLINICAL [...] Interpreting Staff: HUANG TAI, Radiologist Verified by municipal bond trader for HUANG TAI /HUANG WHEATLEYSav [facility] Aug 29, 2024 08:[address] HEAD W/O CONT: LUIS MANUEL PERDOMO [id number] -1945 M Exm Date: AUG 29, 2024@20:28 Req Phys: FELISA COLE Faith Loc: ED/4P-12A (Req'g Loc) Img Loc: CT SCAN Service: [place] [address] (Case [id number] COMPLETE) CT HEAD W/O CONT (CT Detailed) CPT:92322 Reason for Study: SEE CLINICAL HISTORY Clinical History: REASON FOR SEND OUT: ATTENDING PHYSICIAN NAME: New transient neurological s/s - suspected TIA HISTORY/REASON FOR EXAM: confusion Report Status: Verified Date Reported: AUG 29, 2024 Date Verified: AUG 29, 2024 Director Of Quality Control E-Sig: Report: HISTORY confusion COMPARISON No prior [...] Staff: ABDIRAHMAN CROW Staff Physician Verified by municipal bond trader for ABDIRAHMAN CROW /[facility] Pathology Reports: +/- 30 days [...] the Encounter. The data comes from all [facility] facilities. Date/Time Pathology Report Provider Source Sep 03, 2024 01:35 PM LR MICROBIOLOGY RE [place]: Reporting Lab: [facility] [IA# [id number]] [address] [place] [id number] Accession [UID]: [id number] [[id number]] Received: Sep 03, 2024@14:02 Collection sample: URINE, [...] =--=--=--=--=--=-- Performing Laboratory: Bacteriology Report Performed By: [facility] [CLIA# [id number]] [address] [place] [id number] MAGDY CALABRESE-MALKA [facility] Sep 02, 2024 06:00 PM LR MICROBIOLOGY RE [place]: Reporting Lab: [facility] [CLIA# [id number]] [address] [place] [id number] Accession [UID]: [id number] [[id number]] Received: Sep 02, 2024@18:07 Collection sample: BLD CULTURE BOTTLES Collection date: Sep 02, 2024 18:00 Site/Specimen: BLOOD Provider: FRANCK TURNER Comment on specimen: L HAND Test(s) ordered: CULTURE, BLOOD................ completed: Sep 08, 2024 * BACTERIOLOGY FINAL REPORT => Sep 08, 2024 08:25 TECH CODE: [id number] Bacteriology Remark(s): Blood culture status=NO GROWTH (unless notified otherwise) 09/03/2024 AEROBIC: NO GROWTH ANAEROBIC: NO GROWTH =--=--=--=--=--=--=--=--=--=-- =--=--=--=--=--=--=--=--=--=-- =--=--=--=--=--=-- Performing Laboratory: Bacteriology Report Performed By: [facility] [CLIA# [id number]] [address] [place], [place] [id number] MAGDY CALABRESE [facility] Aug 29, 2024 10:18 PM LR MICROBIOLOGY RE [place]: Reporting Lab: [facility] [CLIA# [id number]] [address] [place] [id number] Accession [UID]: [id number] [[id number]] Received: Aug 29, 2024@22:18 Collection sample: URINE, CLEAN CATCH Collection date: Aug 29, 2024 22:18 Site/Specimen: URINE Provider: FELISA COLE Test(s) ordered: CULTURE, URINE................ completed: Aug 31, 2024 09:51 * BACTERIOLOGY FINAL REPORT => Aug 31, 2024 09:51 TECH CODE: [id number] Bacteriology Remark(s): NO GROWTH 08/30/2024 <10,000 CFU/ML. 08/31/2024 =--=--=--=--=--=--=--=--=--=-- =--=--=--=--=--=--=--=--=--=-- =--=--=--=--=--=-- Performing Laboratory: Bacteriology Report Performed By: [facility] [CLIA# [id number]] [address] [place] [address] MAGDY CALABRESE-D [facility]
--- OUTSIDE RECORDS SUMMARY | 2024-09-02 12:54 | XMS_ITS ---
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 Name Role Phone YULISSA HENDERSON Primary Care [...] PLAN F Mar 24, 2014 PLAN F [id number] [phone] LUIS MANUEL PERDOMO PATIENT [facility] [place] [facility] PREFERRED PROVIDER ORGANIZAT ION (PPO) [facility] SLE Sep 21, 2012 [id number] LUIS MANUEL PERDOMO PATIENT [employer] ([id number]) PRESCRIPT ION WL3A Sep 21, 2012 [id number] [phone] LUIS MANUEL PERDOMO PATIENT MEDICARE (WNR) MEDICARE (M) PART B Sep 21, 2012 PART B [id number] NOEMI PERDOMO PATIENT MEDICARE (WNR) MEDICARE (M) PART A Jan 22, 2011 PART A [id number] LEANNE, NOEMI PATIENT MEDICARE PART D (WNR) MEDICARE (M) PART D Mar 24, 2014 PART D [id number] LUIS MANUEL PERDOMO PATIENT Selected Encounter This section includes the information on record at PA for the Encounter. Date/Time Encounter Type Encounter Description Reason Pro vider Source Sep 02, 2024 04:54 PM Inpatient Visit DAILY HOSPITALIZATION DATA [facility] Encounter Template Text not used by PA Plan of Treatment: Future Appointments (+ 6 months) and Future Tests (+/- 45 days) The Plan of Treatment section includes future care activities for the patient [facility] This section includes future appointments and future orders which are active, pending or scheduled. Future Appointments This section includes appointments that were scheduled to occur 6 months from the date of the Encounter, up to a maximum of 20 appointments. The data comes from all [place] treatment facilities. Appointment Date/Time Appointment Type Appointme nt Facility Name Sep 13, 2024 08:00 AM [facility] Sep 30, 2024 01:30 PM [facility] - SURGERY [facility] Active, Pending, and Scheduled Orders This section includes a listing of several types of active, pending, and scheduled orders, including clinic medications orders, diagnostic test orders, procedure orders and consult orders; where the start date of the order is 45 days before the date of the Encounter or 45 days after the date of theEncounter. The data comes from all [facility] facilities. Test Date/Time Test Type Test Details Facility Name Sep 13, 2024 01:33 PM Consult Order [facility] Cons [place] [place] [facility] Lab Results: +/- 30 days [...] Type Comment Sep 09, 2024 12:16 PM [facility] GLUCOSE-HAND MONITOR CAPILLARY Specimen Type: CAPILLARY Comment: Test performed by: [id number] Meter #: [id number] Ordering Provider: FRANCK TURNER Report Released Date/Time: Sep 09, 2024 12:33 PM Reporting Lab: [address] [address] Performing Lab: [address] [address] GLUCOSE-HAND MONITOR 116 mg/dL H Sep 09, 2024 06:07 AM [facility] GLUCOSE-HAND MONITOR CAPILLARY Specime n Type: CAPILLARY Comment: Test performed by: [id number] Meter #: [id number] Ordering Provider: FRANCK TURNER Report Released Date/Time: Sep 09, 2024 08:17 AM Reporting Lab: [address] [address] Performing Lab: [address] [address] GLUCOSE-HAND MONITOR 112 mg/dL H Sep 08, 2024 09:13 PM [facility] GLUCOSE-HAND MONITOR CAPILLARY Specime n Type: CAPILLARY Comment: Test performed by: [id number] Meter #: [id number] Ordering Provider: FRANCK TURNER Report Released Date/Time: Sep 08, 2024 09:31 PM Reporting Lab: [address] [address] Performing Lab: [address] [address] GLUCOSE-HAND MONITOR 107 mg/dL H Sep 08, 2024 03:49 PM [facility] GLUCOSE-HAND MONITOR CAPILLARY Specime n Type: CAPILLARY Comment: AAMIR RN notified Test performed by: [id number] Meter #: [id number] Ordering Provider: FRANCK TURNER Report Released Date/Time: Sep 08, 2024 04:33 PM Reporting Lab: [address] [address] Performing Lab: [address] [address] GLUCOSE-HAND MONITOR 162 mg/dL H Sep 08, 2024 11:43 AM [facility] GLUCOSE-HAND MONITOR CAPILLARY Specime n Type: CAPILLARY Comment: AAMIR RN notified Test performed by: [id number] Meter #: [id number] Ordering Provider: FRANCK TURNER Report Released Date/Time: Sep 08, 2024 12:03 PM Reporting Lab: [address] [address] Performing Lab: [address] [address] GLUCOSE-HAND MONITOR 133 mg/dL H Sep 08, 2024 06:13 AM [facility] GLUCOSE-HAND MONITOR CAPILLARY Specime n Type: CAPILLARY Comment: Test performed by: [id number] Meter #: [id number] Ordering Provider: FRANCK TURNER Report Released Date/Time: Sep 08, 2024 06:46 AM Reporting Lab: [address] [address] Performing Lab: [address] [address] GLUCOSE-HAND MONITOR 104 mg/dL H Sep 07, 2024 07:59 PM [facility] GLUCOSE-HAND MONITOR CAPILLARY Specime n Type: CAPILLARY Comment: Test performed by: [id number] Meter #: [id number] Ordering Provider: FRANCK TURNER Report Released Date/Time: Sep 07, 2024 09:05 PM Reporting Lab: [address] [address] Performing Lab: [address] [address] GLUCOSE-HAND MONITOR 107 mg/dL H Sep 07, 2024 04:39 PM [facility] GLUCOSE-HAND MONITOR CAPILLARY Specime n Type: CAPILLARY Comment: Test performed by: [id number] Meter #: [id number] Ordering Provider: FRANCK TURNER Report Released Date/Time: Sep 07, 2024 05:09 PM Reporting Lab: [address] [address] Performing Lab: [address] [address] GLUCOSE-HAND MONITOR 105 mg/dL H Sep 07, 2024 11:41 AM [facility] GLUCOSE-HAND MONITOR CAPILLARY Specime n Type: CAPILLARY Comment: Test performed by: [id number] Meter #: [id number] Ordering Provider: FRANCK TURNER Report Released Date/Time: Sep 07, 2024 12:41 PM Reporting Lab: [address] [address] Performing Lab: [address] [address] GLUCOSE-HAND MONITOR 144 mg/dL H Sep 07, 2024 05:56 AM [facility] GLUCOSE-HAND MONITOR CAPILLARY Specime n Type: CAPILLARY Comment: Test performed by: [id number] Meter #: [id number] Ordering Provider: FRANCK TURNER Report Released Date/Time: Sep 07, 2024 06:31 AM Reporting Lab: [address] [address] Performing Lab: [address] [address] GLUCOSE-HAND MONITOR 96 mg/dL Sep 06, 2024 08:10 PM [facility] GLUCOSE-HAND MONITOR CAPILLARY Specime n Type: CAPILLARY Comment: Test performed by: [id number] Meter #: [id number] Ordering Provider: FRANCK TURNER Report Released Date/Time: Sep 06, 2024 08:52 PM Reporting Lab: [address] [address] Performing Lab: [address] [address] GLUCOSE-HAND MONITOR 124 mg/dL H Sep 06, 2024 04:27 PM [facility] GLUCOSE-HAND MONITOR CAPILLARY Specime n Type: CAPILLARY Comment: Test performed by: [id number] Meter #: [id number] Ordering Provider: FRANCK TURNER Report Released Date/Time: Sep 06, 2024 05:15 PM Reporting Lab: [address] [address] Performing Lab: [address] [address] GLUCOSE-HAND MONITOR 107 mg/dL H Sep 06, 2024 12:12 PM [facility] GLUCOSE-HAND MONITOR CAPILLARY Specime n Type: CAPILLARY Comment: Test performed by: [id number] Meter #: [id number] Ordering Provider: FRANCK TURNER Report Released Date/Time: Sep 06, 2024 12:29 PM Reporting Lab: [address] [address] Performing Lab: [address] [address] GLUCOSE-HAND MONITOR 181 mg/dL H -Sep 06, 2024 06:13 AM [facility] GLUCOSE-HAND MONITOR CAPILLARY Specime n Type: CAPILLARY Comment: Test performed by: [id number] Meter #: [id number] Ordering Provider: FRANCK TURNER Report Released Date/Time: Sep 06, 2024 06:36 AM Reporting Lab: [address] [address] Performing Lab: [address] [address] GLUCOSE-HAND MONITOR 102 mg/dL H Sep 05, 2024 08:47 PM [facility] GLUCOSE-HAND MONITOR CAPILLARY Specime n Type: CAPILLARY Comment: Test performed by: [id number] Meter #: [id number] Ordering Provider: FRANCK TURNER Report Released Date/Time: Sep 06, 2024 02:13 AM Reporting Lab: [address] [address] Performing Lab: [address] [address] GLUCOSE-HAND MONITOR 103 mg/dL H Sep 05, 2024 04:40 PM [facility] GLUCOSE-HAND MONITOR CAPILLARY Specime n Type: CAPILLARY Comment: AAMIR RN notified Test performed by: [id number] Meter #: [id number] Ordering Provider: FRANCK TURNER Report Released Date/Time: Sep 05, 2024 05:11 PM Reporting Lab: [address] [address] Performing Lab: [address] [address] GLUCOSE-HAND MONITOR 113 mg/dL H Sep 05, 2024 12:06 PM [facility] GLUCOSE-HAND MONITOR CAPILLARY Specime n Type: CAPILLARY Comment: Test performed by: [id number] Meter #: [id number] Ordering Provider: FRANCK TURNER Report Released Date/Time: Sep 05, 2024 12:23 PM Reporting Lab: [address] [address] Performing Lab: [address] [address] GLUCOSE-HAND MONITOR 115 mg/dL H Sep 05, 2024 06:26 AM [facility] GLUCOSE-HAND MONITOR CAPILLARY Specime n Type: CAPILLARY Comment: AAMIR Correction Dose Test performed by: [id number] Meter #: [id number] Ordering Provider: FRANCK TURNER Report Released Date/Time: Sep 05, 2024 06:43 AM Reporting Lab: [address] [address] Performing Lab: [address] [address] GLUCOSE-HAND MONITOR 111 mg/dL H Sep 04, 2024 08:59 PM [facility] GLUCOSE-HAND MONITOR CAPILLARY Specime n Type: CAPILLARY Comment: AAMIR RN notified Test performed by: [id number] Meter #: [id number] Ordering Provider: FRANCK TURNER Report Released Date/Time: Sep 04, 2024 09:36 PM Reporting Lab: [address] [address] Performing Lab: [address] [address] GLUCOSE-HAND MONITOR 123 mg/dL H Sep 04, 2024 04:41 PM [facility] GLUCOSE-HAND MONITOR CAPILLARY Specime n Type: CAPILLARY Comment: AAMIR RN notified Test performed by: [id number] Meter #: [id number] Ordering Provider: FRANCK TURNER Report Released Date/Time: Sep 04, 2024 05:03 PM Reporting Lab: [address] [address] Performing Lab: [address] [address] GLUCOSE-HAND MONITOR 118 mg/dL H Sep 04, 2024 12:36 PM [facility] GLUCOSE-HAND MONITOR CAPILLARY Specime n Type: CAPILLARY Comment: AAMIR RN notified Test performed by: [id number] Meter #: [id number] Ordering Provider: FRANCK TURNER Report Released Date/Time: Sep 04, 2024 12:53 PM Reporting Lab: [address] [address] Performing Lab: [place] [address] GLUCOSE-HAND MONITOR 129 mg/dL H 71-99 Sep 04, 2024 12:03 PM [facility] RESPIRATORY VIRUS PANEL (BIOFIRE) NASOPHARYN X Specimen Type: NASOPHARYNX Comment: ~For Test: RESPIRATORY VIRUS PANEL (BIOFIRE) ~ORDER READ BACK TO: FRANCK TURNER 09/04/24@11:30 Ordering Provider: FRANCK TURNER Report Released Date/Time: Sep 04, 2024 11:33 AM Reporting Lab: [place] [phone] Performing Lab: [place] [phone] ADENOVIRUS (BIOFIRE) Not Detected -Not D etected [...] -Not Detected Sep 04, 2024 06:55 AM [facility] MAGNESIUM PLASMA Specimen Type: PLASM [...] 03, 2024 11:10 AM Reporting Lab: [place] [facility] [address] [facility] [address] Performing Lab: [place] [id number] [facility] [address] MAGNESIUM 1.8 mg/dL 1.6-2.6 Sep 04, 2024 06:55 AM [facility] PANEL 1 PLASMA Specimen Type: [...] Sep 03, 2024 11:10 AM Reporting Lab: [address] [address] Performing Lab: [address] CREATININE 0.75 mg/dL 0.72-1.25 UREA NITROGEN 13 mg/dL 9-25 GLUCOSE 105 mg/dL H 74-100 SODIUM 128 mmol/L L 136-145 POTASSIUM 3.9 mmol/L 3.5-5.1 CHLORIDE 99 mmol/L 98-107 CO2 21 mmol/L L 22-29 CALCIUM 8.0 mg/dL L 8.4-10.2 ANION GAP 8 meq/L 3-19 eGFR (CKD-EPI) >90 Sep 04, 2024 06:02 AM [facility] GLUCOSE-HAND MONITOR CAPILLARY Specime n Type: CAPILLARY Comment: Test performed by: [id number] Meter #: [id number] Ordering Provider: FRANCK TURNER Report Released Date/Time: Sep 04, 2024 06:28 AM Reporting Lab: [address] Performing Lab: [address] GLUCOSE-HAND MONITOR 114 mg/dL H 71-99 Sep 03, 2024 05:19 PM [facility] GLUCOSE-HAND MONITOR CAPILLARY Specime n Type: CAPILLARY Comment: Test performed by: [id number] Meter #: [id number] Ordering Provider: FRANCK TURNER Report Released Date/Time: Sep 03, 2024 05:37 PM Reporting Lab: [address] Performing Lab: [address] [address] GLUCOSE-HAND MONITOR 124 mg/dL H 71-99 Sep 03, 2024 04:41 PM [facility] GLUCOSE-HAND MONITOR CAPILLARY Specime n Type: CAPILLARY Comment: Test performed by: [id number] Meter #: [id number] Ordering Provider: FRANCK TURNER Report Released Date/Time: Sep 03, 2024 06:09 PM Reporting Lab: [address] [address] Performing Lab: [address] [address] GLUCOSE-HAND MONITOR 112 mg/dL H 71-99 Sep 03, 2024 01:35 PM [facility] URINE LYTES URINE Specimen Type : URINE Comment: ~Altered mental status with no identifiable cause Ordering Provider: FRANCK TURNER Report Released Date/Time: Sep 02, 2024 04:44 PM Reporting Lab: [address] [address] Performing Lab: [address] [address] SODIUM 130 mmol/L POTASSIUM 47.6 mmol/L CHLORIDE 137 mmol/L Sep 03, 2024 01:35 PM [facility] CREATININE URINE Specimen Type: URINE Comment: ~Altered mental status with no identifiable cause Ordering Provider: FRANCK TURNER Report Released Date/Time: Sep 02, 2024 04:44 PM Reporting Lab: [address] [address] Performing Lab: [address] [address] CREATININE 150.9 mg/dL Sep 03, 2024 01:35 PM [facility] URINALYSIS WITH REFLEX TO CULTURE URINE Specimen Type: URINE Comment: ~Altered mental status with no identifiable cause Ordering Provider: FRANCK TURNER Report Released Date/Time: Sep 02, 2024 04:44 PM Reporting Lab: [address] [address] Performing Lab: [address] [address] URINE COLOR Yellow Colorless-Yellow APPEARANCE CLOUDY H [...] H 0-28 Sep 03, 2024 01:35 PM [facility] UREA NITROGEN URINE Specimen Type : URINE Comment: ~Altered mental status with no identifiable cause Ordering Provider: FRANCK TURNER Report Released Date/Time: Sep 02, 2024 04:44 PM Reporting Lab: [address] [address] Performing Lab: [address] [address] UREA NITROGEN 320 mg/dL Sep 03, 2024 01:35 PM [facility] OSMOLALITY URINE Specimen Type: URINE Comment: ~Altered mental status with no identifiable cause Ordering Provider: FRANCK TURNER Report Released Date/Time: Sep 02, 2024 04:44 PM Reporting Lab: [address] [address] Performing Lab: [place] [phone] OSMOLALITY 522 mosm/kg 38-1400 Sep 03, 2024 11:58 AM [facility] GLUCOSE-HAND MONITOR CAPILLARY Specime n Type: CAPILLARY Comment: AAMIR RN notified Test performed by: [id number] Meter #: [id number] Ordering Provider: FRANCK TURNER Report Released Date/Time: Sep 03, 2024 12:15 PM Reporting Lab: [address] [address] Performing Lab: [address] [address] GLUCOSE-HAND MONITOR 135 mg/dL H -Sep 03, 2024 07:09 AM [facility] GLUCOSE-HAND MONITOR CAPILLARY Specime n Type: CAPILLARY Comment: Test performed by: [id number] Meter #: [id number] Ordering Provider: FRANCK TURNER Report Released Date/Time: Sep 03, 2024 07:26 AM Reporting Lab: [address] [address] Performing Lab: [address] [address] GLUCOSE-HAND MONITOR 120 mg/dL H -Sep 03, 2024 07:05 AM [facility] CBC/PLT BLOOD Specimen Type: BLOOD No comment entered. Ordering Provider: FRANCK TURNER Report Released Date/Time: Sep 02, 2024 04:29 PM Reporting Lab: [address] [address] Performing Lab: [address] [address] WBC 6.9 10*3/uL 5.0-10.0 RBC 3.48 10*6/uL L 4.6-6.2 HGB 9.5 g/dL L 14.0-18.0 HCT 29.1 L 42.0-52.0 MCV 83.6 fL 80.0-94.0 MCH 27.3 pg 27.0-31.0 MCHC 32.6 g/dL 32.0-36.0 PLT 258 10*3/uL 150-450 MPV 10.3 fL 9.0-13.1 RDW 14.8 11.0-16.0 NRBC 0.0 0.0-0.0 Sep 03, 2024 07:05 AM [facility] MAGNESIUM PLASMA Specimen Type: PLASM [...] Sep 02, 2024 04:29 PM Reporting Lab: [address] [address] Performing Lab: [address] [address] MAGNESIUM 1.7 mg/dL 1.6-2.6 Sep 03, 2024 07:05 AM [facility] GLYCOHEMOGLOBIN BLOOD Specimen Type: BLOOD Comment: Prediabetes: 5.7%-6.4% Diabetes: >= 6.5% [facility] guidelines for A1c interpretation: Glycemic control targets are based on Shared Decision Making between clinicians and patients. Criteria used to establish an A1c target recommendation can be found at https://www.vt.gov/qualityandpatientsafety/ and include the use of result accuracy [...] 8.73 and 9.27. Ref: https://ngsp.org/CAPdata.asp. The in-house [employer] D-100 analyzer has a historical CV <= 2%. Contact the laboratory for further performance characteristics of this assay. Ordering Provider: ALSIP,FRANCK ROBERTDAVID Report Released Date/Time: Sep 02, 2024 04:29 PM Reporting Lab: [facility] [address] [facility] [address] Performing Lab: [address] [address] GLYCOHEMOGLOBIN 5.6 4.4-5.6 Sep 03, 2024 07:05 AM [facility] PANEL 1 PLASMA Specimen Type: [...] Sep 02, 2024 04:29 PM Reporting Lab: [address] [address] Performing Lab: [address] [address] CREATININE 0.82 mg/dL 0.72-1.25 UREA NITROGEN 12 mg/dL 9-25 GLUCOSE 109 mg/dL H 74-100 SODIUM 129 mmol/L L 136-145 POTASSIUM 4.2 mmol/L 3.5-5.1 CHLORIDE 99 mmol/L 98-107 CO2 21 mmol/L L 22-29 CALCIUM 8.1 mg/dL L 8.4-10.2 ANION GAP 9 meq/L 3-19 eGFR (CKD-EPI) 90 Sep 03, 2024 07:05 AM [facility] OSMOLALITY SERUM Specimen Type: SERUM No comment entered. Ordering Provider: FRANCK TURNER Report Released Date/Time: Sep 02, 2024 04:44 PM Reporting Lab: [address] [address] Performing Lab: [address] [address] OSMOLALITY 271 mosm/kg L 280-300 Sep 02, 2024 08:15 PM [facility] GLUCOSE-HAND MONITOR CAPILLARY Specime n Type: CAPILLARY Comment: AAMIR DEXTER notified Test performed by: [id number] Meter #: [id number] Ordering Provider: FRANCK TURNER Report Released Date/Time: Sep 02, 2024 08:57 PM Reporting Lab: [address] [address] Performing Lab: [address] [address] GLUCOSE-HAND MONITOR 126 mg/dL H 71-99 Sep 02, 2024 06:10 PM [facility] MRSA SURVL NARES DNA NARES [...] Sep 02, 2024 05:12 PM Reporting Lab: [address] [address] Performing Lab: [address] [address] MRSA SURVL NARES DNA Negative Negative Sep 02, 2024 05:36 PM [facility] GLUCOSE-HAND MONITOR CAPILLARY Specime n Type: CAPILLARY Comment: Test performed by: [id number] Meter #: [id number] Ordering Provider: FRANCK TURNER Report Released Date/Time: Sep 02, 2024 05:53 PM Reporting Lab: [address] [address] Performing Lab: [address] [address] GLUCOSE-HAND MONITOR 127 mg/dL H 71-99 Aug 29, 2024 10:04 PM [facility] URINALYSIS WITH REFLEX TO CULTURE URINE Specimen Type: URINE Comment: ~For Test: URINALYSIS WITH REFLEX TO CULTURE ~REORDER Ordering Provider: FELISA COLE Report Released Date/Time: Aug 29, 2024 09:36 PM Reporting Lab: [address] [address] Performing Lab: [address] [address] URINE COLOR Yellow Colorless-Yellow APPEARANCE Clear Clear [...] /[LPF] 0-28 Aug 29, 2024 08:32 PM [facility] HIGH SENSITIVITY TROPONIN I PLASMA Specimen [...] Aug 29, 2024 07:55 PM Reporting Lab: [address] [address] Performing Lab: [address] [address] HIGH SENSITIVITY TROPONIN I 7 4-35 Aug 29, 2024 08:32 PM [facility] CBC/PLT BLOOD Specimen Type: BLOOD No comment entered. Ordering Provider: FELISA COLE Report Released Date/Time: Aug 29, 2024 07:55 PM Reporting Lab: [address] [address] Performing Lab: [address] [address] WBC 11.2 10*3/uL H 5.0-10.0 RBC 3.97 10*6/uL L 4.6-6.2 HGB 10.9 g/dL L 14.0-18.0 HCT 33.5 L 42.0-52.0 MCV 84.4 fL 80.0-94.0 MCH 27.5 pg 27.0-31.0 MCHC 32.5 g/dL 32.0-36.0 PLT 230 10*3/uL 150-450 MPV 10.2 fL 9.0-13.1 RDW 14.6 11.0-16.0 NRBC 0.0 0.0-0.0 Aug 29, 2024 08:32 PM [facility] PAN[facility] 5 PLASMA Specimen Type: PLASM [...] Aug 29, 2024 07:55 PM Reporting Lab: [address] [address] Performing Lab: [address] [address] CREATININE 0.85 mg/dL 0.72-1.25 UREA NITROGEN 15 [...] 95 % 0 [place] [facility] Sep 02, 2024 05:01 PM 0 [place] [facility] Advance Directives: All historical and current [...] 08, 2024 ADVANCE DIRECTIVE DISCUSSION [facility] Radiology Reports: +/- 30 days [...] BRAIN W & W/O: LUIS MANUEL PERDOMO [id number] -1945 M Exm Date: SEP 06, 2024@13:40 Req Phys: FRANCK TURNER Loc: 5-MED/TEL/09-06-2024@19:09 Img Loc: [facility] Service: [facility] [place] [id number] (Case [id number] COMPLETE) MRI BRAIN W & W/O (MRI Detailed) CPT:58866 Contrast Media : Gadolinium Reason for Study: SEE CLINICAL HISTORY Pharmaceutical: GADOTERIDOL 279.3MG/ML 20ML INJ, 19ml Clinical History: MRI Screening (Required): IMPLANTED DEVICE DOCUMENTATION IMPLANTED DEVICE DOCUMENTATION NOT FOUND Does the have any Cardiac Implants? None Does the have any implanted stimulators? None Does the have cochlear implants? No Does the [place] have Cerebral aneurysm clip(s)? I don't know Does the [place] have any shrapnel? I don't know If [...] 06, 2024 Date Verified: SEP 06, 2024 Channeler Insole E-Sig: Report: MRI brain without and with [...] Staff: ARCENIO LEYVA, Staff Radiologist Verified by sales and marketing coordinator for ARCENIO LEYVA /MRS LEYVAARCENIO-MALKA [facility] Sep 06, 2024 01:40 PM MRI C SPINE W & W/ O CONTRAST(FURTHER SEQUENCES): LUIS MANUEL PERDOMO [id number] -1945 M Exm Date: SEP 06, 2024@13:40 Req Phys: FRANCK TURNER Pat Loc: 5-MED/TEL/09-07-2024@06:42 [facility] [place]: [facility] Service: [facility] [place] [id number] (Case [id number] COMPLETE) MRI C SPINE W & W/O CONTRAST(FURT(MRI Detailed) CPT:35493 Contrast Media : Gadolinium Reason for Study: SEE CLINICAL HISTORY Pharmaceutical: GADOTERIDOL 279.3MG/ML 20ML INJ, 19ml Clinical History: STATUS OF PLAIN FILMS:Not performed (Provide justification for MR W/O prior plain films below.) MRI for MS MRI Screening (Required): IMPLANTED DEVICE DOCUMENTATION IMPLANTED DEVICE DOCUMENTATION NOT FOUND Does the [place] have any Cardiac Implants? None Does the [place] have any implanted stimulators? None Does the [place] have cochlear implants? No Does the have Cerebral aneurysm clip(s)? I don't know Does the [place] have any shrapnel? I don't know If yes, where in your body? Please list other implants not listed above: MRI table has a weight limit of 551 lbs. [place]'s Weight: *212 lb [96.16 kg] (09/04/2024 05:19) Is this patient claustrophobic?: No REASON FOR EXAM: MULTIPLE SCLEROSIS (indicate suspected or established) PERTINENT PATIENT HISTORY: MS c/f flare Risk factors for GADOLINIUM NEPHROGENIC SYSTEMIC SCLEROSIS: Report Status: Verified Date Reported: SEP 07, 2024 Date Verified: SEP 07, 2024 Channeler Insole E-Sig: Report: EXAMINATION: MRI OF THE CERVICAL [...] Interpreting Staff: HUANG TAI, Radiologist Verified by sales and marketing coordinator for HUANG TAI /HUANG WHEATLEY-MALKA [facility] Sep 03, 2024 10:45 AM CHEST SINGLE(1) EW: LEANNELUIS MANUEL FINCH [id number] -1945 M Exm Date: SEP 03, 2024@10:45 Req Phys: FRANCK TURNER [facility] Loc: 5-MED/TEL/09-03-2024@10:56 Img Loc: [facility] RADIOLOGY Service: [place] [address] (Case [id number] COMPLETE)CHEST SINGLE(1) VIEW (RAD Detailed) CPT:76873 Proc Modifiers : PORTABLE EXAM Reason for Study: Eval volume status Clinical History: Report Status: Verified Date Reported: SEP 03, 2024 Date Verified: SEP 03, 2024 Channeler Insole E-Sig: Report: EXAMINATION: SINGLE VIEW CHEST CLINICAL [...] Interpreting Staff: HUANG TAI, Radiologist Verified by sales and marketing coordinator for HUANG TAI /HUANG WHEATLEYSav [facility] Aug 29, 2024 08:[address] HEAD W/O CONT: LUIS MANUEL PERDOMO [id number] -1945 M Exm Date: AUG 29, 2024@20:28 Req Phys: FELISA COLE [facility] Loc: ED/4P-12A (Req'g Loc) Img Loc: CT SCAN Service: [place] [address] (Case [id number] COMPLETE) CT HEAD W/O CONT (CT Detailed) CPT:83967 Reason for Study: SEE CLINICAL HISTORY Clinical History: REASON FOR SEND OUT: ATTENDING PHYSICIAN NAME: New transient neurological s/s - suspected TIA HISTORY/REASON FOR EXAM: confusion Report Status: Verified Date Reported: AUG 29, 2024 Date Verified: AUG 29, 2024 Channeler Insole E-Sig: Report: HISTORY confusion COMPARISON No prior [...] Staff: ABDIRAHMAN CROW Staff Physician Verified by sales and marketing coordinator for ABDIRAHMAN CROW [facility] Pathology Reports: +/- 30 days of [...] the Encounter. The data comes from all [facility] facilities. Date/Time Pathology Report Provider Source Sep 03, 2024 01:35 PM LR MICROBIOLOGY RE PORT: Reporting Lab: [facility] [IA# [id number]] [address] [place] [id number] Accession [UID]: [id number] [[id number]] Received: Sep 03, 2024@14:02 Collection sample: URINE, [...] By: [facility] [CLIA# [id number]] [address] [place] [id number] MAGDY CALABRESE-MALKA [facility] Sep 02, 2024 06:00 PM LR MICROBIOLOGY RE PORT: Reporting Lab: [facility] [CLIA# [id number]] [address] [place] [id number] Accession [UID]: [id number] [[id number]] Received: Sep 02, 2024@18:07 Collection sample: BLD CULTURE BOTTLES Collection date: Sep 02, 2024 18:00 Site/Specimen: BLOOD Provider: FRANCK TURNER Comment on specimen: L HAND Test(s) ordered: CULTURE, BLOOD................ completed: Sep 08, 2024 * BACTERIOLOGY FINAL REPORT => Sep 08, 2024 08:25 TECH CODE: [id number] Bacteriology Remark(s): Blood culture status=NO GROWTH (unless notified otherwise) 09/03/2024 AEROBIC: NO GROWTH ANAEROBIC: NO GROWTH =--=--=--=--=--=--=--=--=--=-- =--=--=--=--=--=--=--=--=--=-- =--=--=--=--=--=-- Performing Laboratory: Bacteriology Report Performed By: [facility] [CLIA# [id number]] [address] [place], [place] [id number] MAGDY CALABRESE [facility] Aug 29, 2024 10:18 PM LR MICROBIOLOGY RE PORT: Reporting Lab: [facility] [CLIA# [id number]] [address] [place] [id number] Accession [UID]: [id number] [[id number]] Received: Aug 29, 2024@22:18 Collection sample: URINE, CLEAN CATCH Collection date: Aug 29, 2024 22:18 Site/Specimen: URINE Provider: FELISA COLE Test(s) ordered: CULTURE, URINE................ completed: Aug 31, 2024 09:51 * BACTERIOLOGY FINAL REPORT => Aug 31, 2024 09:51 TECH CODE: [id number] Bacteriology Remark(s): NO GROWTH 08/30/2024 <10,000 CFU/ML. 08/31/2024 =--=--=--=--=--=--=--=--=--=-- =--=--=--=--=--=--=--=--=--=-- =--=--=--=--=--=-- Performing Laboratory: Bacteriology Report Performed By: [facility] [CLIA# [id number]] [address] [place] [address] MAGDY CALABRESE-D [facility]
--- OUTSIDE RECORDS SUMMARY | 2024-09-02 13:00 | XMS_ITS ---
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 [place] [facility]ARD PREFERRED PROVIDER ORGANIZAT ION (PPO) [facility] SLE Sep 21, 2012 [id number] LUIS MANUEL PERDOMO PATIENT [employer] ([id number]) PRESCRIPT ION WL3A Sep 21, 2012 [id number] LUIS MANUEL PERDOMO PATIENT MEDICARE (WNR) MEDICARE (M) PART B Sep 21, 2012 PART B [id number] [phone] NOEMI PERDOMO PATIENT MEDICARE (WNR) MEDICARE (M) PART A Jan 22, 2011 PART A [id number] LEANNE, NOEMI PATIENT MEDICARE PART D (WNR) MEDICARE (M) PART D Mar 24, 2014 PART D [id number] LUIS MANUEL PERDOMO PATIENT Selected Encounter This section includes the information on record at [place] for the Encounter. Date/Time Encounter Type Encounter Description Reason Pro vider Source Sep 02, 2024 05:00 PM Inpatient Visit DAILY HOSPITALIZATION DATA [facility] Encounter Template Text not used by [place] Plan of Treatment: Future Appointments (+ 6 months) and Future Tests (+/- 45 days) The Plan of Treatment section includes [facility] care [facility] the [facility] [place] [facility] This section includes future appointments [...] 13, 2024 08:00 AM [facility] Sep 30, 2024 01:30 PM [facility] - SURGERY [place] [facility] Active, Pending, and Scheduled Orders This section includes a listing of several types of active, pending, and scheduled orders, including clinic medications orders, diagnostic test orders, procedure orders and consult orders; where the start date of the order is 45 days before the date of the Encounter or 45 days after the date of theEncounter. The data comes from all [facility] facilities. Test Date/Time Test Type Test Details Facility Name Sep 13, 2024 01:33 PM Consult Order [facility] SKILL[facility] HOME CARE Cons Content Editor's Choice [facility] Lab Results: [...] Type Comment Sep 09, 2024 12:16 PM [facility] GLUCOSE-HAND MONITOR CAPILLARY Specimen Type: CAPILLARY Comment: Test performed by: [id number] Meter #: [id number] Ordering Provider: FRANCK TURNER Report Released Date/Time: Sep 09, 2024 12:33 PM Reporting Lab: [address] [address] Performing Lab: [address] [address] GLUCOSE-HAND MONITOR 116 mg/dL H Sep 09, 2024 06:07 AM [facility] GLUCOSE-HAND MONITOR CAPILLARY Specime n Type: CAPILLARY Comment: Test performed by: [id number] Meter #: [id number] Ordering Provider: FRANCK TURNER Report Released Date/Time: Sep 09, 2024 08:17 AM Reporting Lab: [address] [address] Performing Lab: [address] [address] GLUCOSE-HAND MONITOR 112 mg/dL H Sep 08, 2024 09:13 PM [facility] GLUCOSE-HAND MONITOR CAPILLARY Specime n Type: CAPILLARY Comment: Test performed by: [id number] Meter #: [id number] Ordering Provider: FRANCK TURNER Report Released Date/Time: Sep 08, 2024 09:31 PM Reporting Lab: [address] [address] Performing Lab: [address] [address] GLUCOSE-HAND MONITOR 107 mg/dL H Sep 08, 2024 03:49 PM [facility] GLUCOSE-HAND MONITOR CAPILLARY Specime n Type: CAPILLARY Comment: AAMIR RN notified Test performed by: [id number] Meter #: [id number] Ordering Provider: FRANCK TURNER Report Released Date/Time: Sep 08, 2024 04:33 PM Reporting Lab: [address] [address] Performing Lab: [address] [address] GLUCOSE-HAND MONITOR 162 mg/dL H Sep 08, 2024 11:43 AM [facility] GLUCOSE-HAND MONITOR CAPILLARY Specime n Type: CAPILLARY Comment: AAMIR RN notified Test performed by: [id number] Meter #: [id number] Ordering Provider: FRANCK TURNER Report Released Date/Time: Sep 08, 2024 12:03 PM Reporting Lab: [address] [address] Performing Lab: [address] [address] GLUCOSE-HAND MONITOR 133 mg/dL H Sep 08, 2024 06:13 AM [facility] GLUCOSE-HAND MONITOR CAPILLARY Specime n Type: CAPILLARY Comment: Test performed by: [id number] Meter #: [id number] Ordering Provider: FRANCK TURNER Report Released Date/Time: Sep 08, 2024 06:46 AM Reporting Lab: [address] [address] Performing Lab: [address] [address] GLUCOSE-HAND MONITOR 104 mg/dL H Sep 07, 2024 07:59 PM [facility] GLUCOSE-HAND MONITOR CAPILLARY Specime n Type: CAPILLARY Comment: Test performed by: [id number] Meter #: [id number] Ordering Provider: FRANCK TURNER Report Released Date/Time: Sep 07, 2024 09:05 PM Reporting Lab: [address] [address] Performing Lab: [address] [address] GLUCOSE-HAND MONITOR 107 mg/dL H Sep 07, 2024 04:39 PM [facility] GLUCOSE-HAND MONITOR CAPILLARY Specime n Type: CAPILLARY Comment: Test performed by: [id number] Meter #: [id number] Ordering Provider: FRANCK TURNER Report Released Date/Time: Sep 07, 2024 05:09 PM Reporting Lab: [address] [address] Performing Lab: [address] [address] GLUCOSE-HAND MONITOR 105 mg/dL H Sep 07, 2024 11:41 AM [facility] GLUCOSE-HAND MONITOR CAPILLARY Specime n Type: CAPILLARY Comment: Test performed by: [id number] Meter #: [id number] Ordering Provider: FRANCK TURNER Report Released Date/Time: Sep 07, 2024 12:41 PM Reporting Lab: [address] [address] Performing Lab: [address] [address] GLUCOSE-HAND MONITOR 144 mg/dL H Sep 07, 2024 05:56 AM [facility] GLUCOSE-HAND MONITOR CAPILLARY Specime n Type: CAPILLARY Comment: Test performed by: [id number] Meter #: [id number] Ordering Provider: FRANCK TURNER Report Released Date/Time: Sep 07, 2024 06:31 AM Reporting Lab: [address] [address] Performing Lab: [address] [address] GLUCOSE-HAND MONITOR 96 mg/dL Sep 06, 2024 08:10 PM [facility] GLUCOSE-HAND MONITOR CAPILLARY Specime n Type: CAPILLARY Comment: Test performed by: [id number] Meter #: [id number] Ordering Provider: FRANCK TURNER Report Released Date/Time: Sep 06, 2024 08:52 PM Reporting Lab: [address] [address] Performing Lab: [address] [address] GLUCOSE-HAND MONITOR 124 mg/dL H Sep 06, 2024 04:27 PM [facility] GLUCOSE-HAND MONITOR CAPILLARY Specime n Type: CAPILLARY Comment: Test performed by: [id number] Meter #: [id number] Ordering Provider: FRANCK TURNER Report Released Date/Time: Sep 06, 2024 05:15 PM Reporting Lab: [address] [address] Performing Lab: [address] [address] GLUCOSE-HAND MONITOR 107 mg/dL H Sep 06, 2024 12:12 PM [facility] GLUCOSE-HAND MONITOR CAPILLARY Specime n Type: CAPILLARY Comment: Test performed by: [id number] Meter #: [id number] Ordering Provider: FRANCK TURNER Report Released Date/Time: Sep 06, 2024 12:29 PM Reporting Lab: [address] [address] Performing Lab: [address] [address] GLUCOSE-HAND MONITOR 181 mg/dL H -Sep 06, 2024 06:13 AM [facility] GLUCOSE-HAND MONITOR CAPILLARY Specime n Type: CAPILLARY Comment: Test performed by: [id number] Meter #: [id number] Ordering Provider: FRANCK TURNER Report Released Date/Time: Sep 06, 2024 06:36 AM Reporting Lab: [address] [address] Performing Lab: [address] [address] GLUCOSE-HAND MONITOR 102 mg/dL H Sep 05, 2024 08:47 PM [facility] GLUCOSE-HAND MONITOR CAPILLARY Specime n Type: CAPILLARY Comment: Test performed by: [id number] Meter #: [id number] Ordering Provider: FRANCK TURNER Report Released Date/Time: Sep 06, 2024 02:13 AM Reporting Lab: [address] [address] Performing Lab: [address] [address] GLUCOSE-HAND MONITOR 103 mg/dL H Sep 05, 2024 04:40 PM [facility] GLUCOSE-HAND MONITOR CAPILLARY Specime n Type: CAPILLARY Comment: AAMIR RN notified Test performed by: [id number] Meter #: [id number] Ordering Provider: FRANCK TURNER Report Released Date/Time: Sep 05, 2024 05:11 PM Reporting Lab: [address] [address] Performing Lab: [address] [address] GLUCOSE-HAND MONITOR 113 mg/dL H Sep 05, 2024 12:06 PM [facility] GLUCOSE-HAND MONITOR CAPILLARY Specime n Type: CAPILLARY Comment: Test performed by: [id number] Meter #: [id number] Ordering Provider: FRANCK TURNER Report Released Date/Time: Sep 05, 2024 12:23 PM Reporting Lab: [address] [address] Performing Lab: [address] [address] GLUCOSE-HAND MONITOR 115 mg/dL H Sep 05, 2024 06:26 AM [facility] GLUCOSE-HAND MONITOR CAPILLARY Specime n Type: CAPILLARY Comment: AAMIR Correction Dose Test performed by: [id number] Meter #: [id number] Ordering Provider: FRANCK TURNER Report Released Date/Time: Sep 05, 2024 06:43 AM Reporting Lab: [address] [address] Performing Lab: [address] [address] GLUCOSE-HAND MONITOR 111 mg/dL H Sep 04, 2024 08:59 PM [facility] GLUCOSE-HAND MONITOR CAPILLARY Specime n Type: CAPILLARY Comment: AAMIR RN notified Test performed by: [id number] Meter #: [id number] Ordering Provider: FRANCK TURNER Report Released Date/Time: Sep 04, 2024 09:36 PM Reporting Lab: [address] [address] Performing Lab: [address] [address] GLUCOSE-HAND MONITOR 123 mg/dL H Sep 04, 2024 04:41 PM [facility] GLUCOSE-HAND MONITOR CAPILLARY Specime n Type: CAPILLARY Comment: AAMIR RN notified Test performed by: [id number] Meter #: [id number] Ordering Provider: FRANCK TURNER Report Released Date/Time: Sep 04, 2024 05:03 PM Reporting Lab: [address] [address] Performing Lab: [address] [address] GLUCOSE-HAND MONITOR 118 mg/dL H Sep 04, 2024 12:36 PM [facility] GLUCOSE-HAND MONITOR CAPILLARY Specime n Type: CAPILLARY Comment: AAMIR RN notified Test performed by: [id number] Meter #: [id number] Ordering Provider: FRANCK TURNER Report Released Date/Time: Sep 04, 2024 12:53 PM Reporting Lab: [address] [address] Performing Lab: [place] [address] GLUCOSE-HAND MONITOR 129 mg/dL H 71-99 Sep 04, 2024 12:03 PM [facility] RESPIRATORY VIRUS PANEL (BIOFIRE) NASOPHARYN X Specimen Type: NASOPHARYNX Comment: ~For Test: RESPIRATORY VIRUS PANEL (BIOFIRE) ~ORDER READ BACK TO: FRANCK TURNER 09/04/24@11:30 Ordering Provider: FRANCK TURNER Report Released Date/Time: Sep 04, 2024 11:33 AM Reporting Lab: [place] [phone] Performing Lab: [place] [phone] ADENOVIRUS (BIOFIRE) Not Detected -Not D etected [...] -Not Detected Sep 04, 2024 06:55 AM [facility] MAGNESIUM PLASMA Specimen Type: PLASM A Comment: [...] 11:10 AM Reporting Lab: [place] [facility] [address] [facility] [address] Performing Lab: [place] [id number] [facility] [address] MAGNESIUM 1.8 mg/dL 1.6-2.6 Sep 04, 2024 06:55 AM [facility] PANEL 1 PLASMA Specimen Type: PLASM A [...] Sep 03, 2024 11:10 AM Reporting Lab: [address] [address] Performing Lab: [address] CREATININE 0.75 mg/dL 0.72-1.25 UREA NITROGEN 13 mg/dL 9-25 GLUCOSE 105 mg/dL H 74-100 SODIUM 128 mmol/L L 136-145 POTASSIUM 3.9 mmol/L 3.5-5.1 CHLORIDE 99 mmol/L 98-107 CO2 21 mmol/L L 22-29 CALCIUM 8.0 mg/dL L 8.4-10.2 ANION GAP 8 meq/L 3-19 eGFR (CKD-EPI) >90 Sep 04, 2024 06:02 AM [facility] GLUCOSE-HAND MONITOR CAPILLARY Specime n Type: CAPILLARY Comment: Test performed by: [id number] Meter #: [id number] Ordering Provider: FRANCK TURNER Report Released Date/Time: Sep 04, 2024 06:28 AM Reporting Lab: [address] Performing Lab: [address] GLUCOSE-HAND MONITOR 114 mg/dL H 71-99 Sep 03, 2024 05:19 PM [facility] GLUCOSE-HAND MONITOR CAPILLARY Specime n Type: CAPILLARY Comment: Test performed by: [id number] Meter #: [id number] Ordering Provider: FRANCK TURNER Report Released Date/Time: Sep 03, 2024 05:37 PM Reporting Lab: [address] Performing Lab: [address] [address] GLUCOSE-HAND MONITOR 124 mg/dL H 71-99 Sep 03, 2024 04:41 PM [facility] GLUCOSE-HAND MONITOR CAPILLARY Specime n Type: CAPILLARY Comment: Test performed by: [id number] Meter #: [id number] Ordering Provider: FRANCK TURNER Report Released Date/Time: Sep 03, 2024 06:09 PM Reporting Lab: [address] [address] Performing Lab: [address] [address] GLUCOSE-HAND MONITOR 112 mg/dL H 71-99 Sep 03, 2024 01:35 PM [facility] CREATININE URINE Specimen Type: URINE Comment: ~Altered mental status with no identifiable cause Ordering Provider: FRANCK TURNER Report Released Date/Time: Sep 02, 2024 04:44 PM Reporting Lab: [facility] [address] [place] [address] Performing Lab: [address] [address] CREATININE 150.9 mg/dL Sep 03, 2024 01:35 PM [facility] URINE LYTES URINE Specimen Type : URINE Comment: ~Altered mental status with no identifiable cause Ordering Provider: FRANCK TURNER Report Released Date/Time: Sep 02, 2024 04:44 PM Reporting Lab: [address] [address] Performing Lab: [address] [address] SODIUM 130 mmol/L POTASSIUM 47.6 mmol/L CHLORIDE 137 mmol/L Sep 03, 2024 01:35 PM [facility] UREA NITROGEN URINE Specimen Type : URINE Comment: ~Altered mental status with no identifiable cause Ordering Provider: FRANCK TURNER Report Released Date/Time: Sep 02, 2024 04:44 PM Reporting Lab: [address] [address] Performing Lab: [address] [address] UREA NITROGEN 320 mg/dL Sep 03, 2024 01:35 PM [facility] OSMOLALITY URINE Specimen Type: URINE Comment: ~Altered mental status with no identifiable cause Ordering Provider: FRANCK TURNER Report Released Date/Time: Sep 02, 2024 04:44 PM Reporting Lab: [address] [address] Performing Lab: [address] [address] OSMOLALITY 522 mosm/kg 38-1400 Sep 03, 2024 01:35 PM [facility] URINALYSIS WITH REFLEX TO CULTURE URINE Specimen Type: URINE Comment: ~Altered mental status with no identifiable cause Ordering Provider: FRANCK TURNER Report Released Date/Time: Sep 02, 2024 04:44 PM Reporting Lab: [address] [address] Performing Lab: [address] [address] URINE COLOR Yellow Colorless-Yellow APPEARANCE CLOUDY H [...] H 0-28 Sep 03, 2024 11:58 AM [facility] GLUCOSE-HAND MONITOR CAPILLARY Specime n Type: CAPILLARY Comment: AAMIR RN notified Test performed by: [id number] Meter #: [id number] Ordering Provider: FRANCK TURNER Report Released Date/Time: Sep 03, 2024 12:15 PM Reporting Lab: [address] [address] Performing Lab: [address] [address] GLUCOSE-HAND MONITOR 135 mg/dL H Sep 03, 2024 07:09 AM [facility] GLUCOSE-HAND MONITOR CAPILLARY Specime n Type: CAPILLARY Comment: Test performed by: [id number] Meter #: [id number] Ordering Provider: FRANCK TURNER Report Released Date/Time: Sep 03, 2024 07:26 AM Reporting Lab: [address] [address] Performing Lab: [address] [address] GLUCOSE-HAND MONITOR 120 mg/dL H -Sep 03, 2024 07:05 AM [facility] CBC/PLT BLOOD Specimen Type: BLOOD No comment entered. Ordering Provider: FRANCK TURNER Report Released Date/Time: Sep 02, 2024 04:29 PM Reporting Lab: [address] [address] Performing Lab: [address] [address] WBC 6.9 10*3/uL 5.0-10.0 RBC 3.48 10*6/uL L 4.6-6.2 HGB 9.5 g/dL L 14.0-18.0 HCT 29.1 L 42.0-52.0 MCV 83.6 fL 80.0-94.0 MCH 27.3 pg 27.0-31.0 MCHC 32.6 g/dL 32.0-36.0 PLT 258 10*3/uL 150-450 MPV 10.3 fL 9.0-13.1 RDW 14.8 11.0-16.0 NRBC 0.0 0.0-0.0 Sep 03, 2024 07:05 AM [facility] MAGNESIUM PLASMA Specimen Type: PLASM A Comment: [...] Sep 02, 2024 04:29 PM Reporting Lab: [address] [address] Performing Lab: [address] [address] MAGNESIUM 1.7 mg/dL 1.6-2.6 Sep 03, 2024 07:05 AM [facility] PANEL 1 PLASMA Specimen Type: PLASM A [...] Sep 02, 2024 04:29 PM Reporting Lab: [address] [address] Performing Lab: [address] [address] CREATININE 0.82 mg/dL 0.72-1.25 UREA NITROGEN 12 mg/dL 9-25 GLUCOSE 109 mg/dL H 74-100 SODIUM 129 mmol/L L 136-145 POTASSIUM 4.2 mmol/L 3.5-5.1 CHLORIDE 99 mmol/L 98-107 CO2 21 mmol/L L 22-29 CALCIUM 8.1 mg/dL L 8.4-10.2 ANION GAP 9 meq/L 3-19 eGFR (CKD-EPI) 90 Sep 03, 2024 07:05 AM [facility] GLYCOHEMOGLOBIN BLOOD Specimen Type: BLOOD Comment: Prediabetes: 5.7%-6.4% Diabetes: >= 6.5% [facility] guidelines for A1c interpretation: Glycemic control targets are based on Shared Decision Making between clinicians and patients. Criteria used to establish an A1c target recommendation can be found at https://www.mo.gov/qualityandpatientsafety/ and include the use of result accuracy [...] 8.73 and 9.27. Ref: https://ngsp.org/CAPdata.asp. The in-house Pluto.TV-120 Sports D-100 analyzer has a historical CV <= 2%. Contact the laboratory for further performance characteristics of this assay. Ordering Provider: FRANCK TURNER Report Released Date/Time: Sep 02, 2024 04:29 PM Reporting Lab: [address] [address] Performing Lab: [place] [phone] GLYCOHEMOGLOBIN 5.6 4.4-5.6 Sep 03, 2024 07:05 AM [facility] OSMOLALITY SERUM Specimen Type: SERUM No comment entered. Ordering Provider: FRANCK TURNER Report Released Date/Time: Sep 02, 2024 04:44 PM Reporting Lab: [address] [address] Performing Lab: [address] [address] OSMOLALITY 271 mosm/kg L 280-300 Sep 02, 2024 08:15 PM [facility] GLUCOSE-HAND MONITOR CAPILLARY Specime n Type: CAPILLARY Comment: AAMIR DEXTER notified Test performed by: [id number] Meter #: [id number] Ordering Provider: FRANCK TURNER Report Released Date/Time: Sep 02, 2024 08:57 PM Reporting Lab: [address] [address] Performing Lab: [address] [address] GLUCOSE-HAND MONITOR 126 mg/dL H 71-99 Sep 02, 2024 06:10 PM [facility] MRSA SURVL NARES DNA NARES Specime n [...] Sep 02, 2024 05:12 PM Reporting Lab: [address] [address] Performing Lab: [address] [address] MRSA SURVL NARES DNA Negative Negative Sep 02, 2024 05:36 PM [facility] GLUCOSE-HAND MONITOR CAPILLARY Specime n Type: CAPILLARY Comment: Test performed by: [id number] Meter #: [id number] Ordering Provider: FRANCK TURNER Report Released Date/Time: Sep 02, 2024 05:53 PM Reporting Lab: [address] [address] Performing Lab: [address] [address] GLUCOSE-HAND MONITOR 127 mg/dL H 71-99 Aug 29, 2024 10:04 PM [facility] URINALYSIS WITH REFLEX TO CULTURE URINE Specimen Type: URINE Comment: ~For Test: URINALYSIS WITH REFLEX TO CULTURE ~REORDER Ordering Provider: FELISA COLE Report Released Date/Time: Aug 29, 2024 09:36 PM Reporting Lab: [address] [address] Performing Lab: [address] [address] URINE COLOR Yellow Colorless-Yellow APPEARANCE Clear Clear [...] /[LPF] 0-28 Aug 29, 2024 08:32 PM [facility] HIGH SENSITIVITY TROPONIN I PLASMA [...] Aug 29, 2024 07:55 PM Reporting Lab: [address] [address] Performing Lab: [address] [address] HIGH SENSITIVITY TROPONIN I 7 4-35 Aug 29, 2024 08:32 PM [facility] CBC/PLT BLOOD Specimen Type: BLOOD No comment entered. Ordering Provider: FELISA COLE Report Released Date/Time: Aug 29, 2024 07:55 PM Reporting Lab: [address] [address] Performing Lab: [address] [address] WBC 11.2 10*3/uL H 5.0-10.0 RBC 3.97 10*6/uL L 4.6-6.2 HGB 10.9 g/dL L 14.0-18.0 HCT 33.5 L 42.0-52.0 MCV 84.4 fL 80.0-94.0 MCH 27.5 pg 27.0-31.0 MCHC 32.5 g/dL 32.0-36.0 PLT 230 10*3/uL 150-450 MPV 10.2 fL 9.0-13.1 RDW 14.6 11.0-16.0 NRBC 0.0 0.0-0.0 Aug 29, 2024 08:32 PM [facility] PANEL 5 PLASMA Specimen Type: [...] Aug 29, 2024 07:55 PM Reporting Lab: [address] [address] Performing Lab: [address] [address] CREATININE 0.85 mg/dL 0.72-1.25 UREA NITROGEN 15 [...] 95 % 0 [place] [facility] Sep 02, 2024 05:01 PM 0 [place] [facility] Advance Directives: All historical and current [...] BRAIN W & W/O: LUIS MANUEL PERDOMO [id number] -1945 M Exm Date: SEP 06, 2024@13:40 Req Phys: FRANCK TURNER Loc: 5-MED/TEL/09-06-2024@19:09 Img Loc: [facility] Service: [facility]ICAL SERVICE [place] [id number] (Case [id number] COMPLETE) MRI BRAIN W & W/O (MRI Detailed) CPT:41763 Contrast Media : Gadolinium Reason for Study: SEE CLINICAL HISTORY Pharmaceutical: GADOTERIDOL 279.3MG/ML 20ML INJ, 19ml Clinical History: MRI Screening (Required): IMPLANTED DEVICE DOCUMENTATION IMPLANTED DEVICE DOCUMENTATION NOT FOUND Does the have any Cardiac Implants? None Does the have any implanted stimulators? None Does the have cochlear implants? No Does the [place] have Cerebral aneurysm clip(s)? I don't know Does the [place] have any shrapnel? I don't know If [...] 06, 2024 Date Verified: SEP 06, 2024 Change Management Analyst E-Sig: Report: MRI brain without and with [...] Staff: ARCENIO LEYVA, Staff Radiologist Verified by glue jointer operator for ARCENIO LEYVA /MRS LEYVAARCENIO-MALKA [facility] Sep 06, 2024 01:40 PM MRI C SPINE W & W/ O CONTRAST(FURTHER SEQUENCES): LUIS MANUEL PERDOMO [id number] -1945 M Exm Date: SEP 06, 2024@13:40 Req Phys: FRANCK TURNER Pat Loc: 5-MED/TEL/09-07-2024@06:42 [facility] Loc: [facility] Service: [facility] [place] [id number] (Case [id number] COMPLETE) MRI C SPINE W & W/O CONTRAST(FURT(MRI Detailed) CPT:80006 Contrast Media : Gadolinium Reason for Study: SEE CLINICAL HISTORY Pharmaceutical: GADOTERIDOL 279.3MG/ML 20ML INJ, 19ml Clinical History: STATUS OF PLAIN FILMS:Not performed (Provide justification for MR W/O prior plain films below.) MRI for MS MRI Screening (Required): IMPLANTED DEVICE DOCUMENTATION IMPLANTED DEVICE DOCUMENTATION NOT FOUND Does the [place] have any Cardiac Implants? None Does the [place] have any implanted stimulators? None Does the [place] have cochlear implants? No Does the have Cerebral aneurysm clip(s)? I don't know Does the [place] have any shrapnel? I don't know If yes, where in your body? Please list other implants not listed above: MRI table has a weight limit of 551 lbs. [place]'s Weight: *212 lb [96.16 kg] (09/04/2024 05:19) Is this patient claustrophobic?: No REASON FOR EXAM: MULTIPLE SCLEROSIS (indicate suspected or established) PERTINENT PATIENT HISTORY: MS c/f flare Risk factors for GADOLINIUM NEPHROGENIC SYSTEMIC SCLEROSIS: Report Status: Verified Date Reported: SEP 07, 2024 Date Verified: SEP 07, 2024 Change Management Analyst E-Sig: Report: EXAMINATION: MRI OF THE CERVICAL [...] Interpreting Staff: HUANG TAI, Radiologist Verified by glue jointer operator for HUANG TAI /HUANG WHEATLEY-MALKA [facility] Sep 03, 2024 10:45 AM CHEST SINGLE(1) EW: LEANNELUIS MANUEL FINCH [id number] -1945 M Exm Date: SEP 03, 2024@10:45 Req Phys: FRANCK TURNER [facility] Loc: 5-MED/TEL/09-03-2024@10:56 Img Loc: [facility] RADIOLOGY Service: [place] [address] (Case [id number] COMPLETE)CHEST SINGLE(1) VIEW (RAD Detailed) CPT:58187 Proc Modifiers : PORTABLE EXAM Reason for Study: Eval volume status Clinical History: Report Status: Verified Date Reported: SEP 03, 2024 Date Verified: SEP 03, 2024 Change Management Analyst E-Sig: Report: EXAMINATION: SINGLE VIEW CHEST CLINICAL [...] Interpreting Staff: HUANG TAI, Radiologist Verified by glue jointer operator for HUANG TAI /HUANG WHEATLEYSav [facility] Aug 29, 2024 08:[address] HEAD W/O CONT: LUIS MANUEL PERDOMO [id number] -1945 M Exm Date: AUG 29, 2024@20:28 Req Phys: FELISA COLE Faith Loc: ED/4P-12A (Req'g Loc) Img Loc: CT SCAN Service: [place] [address] (Case [id number] COMPLETE) CT HEAD W/O CONT (CT Detailed) CPT:22931 Reason for Study: SEE CLINICAL HISTORY Clinical History: REASON FOR SEND OUT: ATTENDING PHYSICIAN NAME: New transient neurological s/s - suspected TIA HISTORY/REASON FOR EXAM: confusion Report Status: Verified Date Reported: AUG 29, 2024 Date Verified: AUG 29, 2024 Change Management Analyst E-Sig: Report: HISTORY confusion COMPARISON No prior [...] Staff: ABDIRAHMAN CROW Staff Physician Verified by glue jointer operator for ABDIRAHMAN CROW [facility] Reports: +/- 30 days [...] the Encounter. The data comes from all [facility] facilities. Date/Time Pathology Report Provider Source Sep 03, 2024 01:35 PM LR MICROBIOLOGY RE PORT: Reporting Lab: [facility] [IA# [id number]] [address] [place] [id number] Accession [UID]: [id number] [[id number]] Received: Sep 03, 2024@14:02 Collection sample: URINE, [...] Performed By: [facility] [CLIA# [id number]] [address] [place] [id number] MAGDY CALABRESE-MALKA [facility] Sep 02, 2024 06:00 PM LR MICROBIOLOGY RE PORT: Reporting Lab: [facility] [CLIA# [id number]] [address] [place] [id number] Accession [UID]: [id number] [[id number]] Received: Sep 02, 2024@18:07 Collection sample: BLD CULTURE BOTTLES Collection date: Sep 02, 2024 18:00 Site/Specimen: BLOOD Provider: FRANCK TURNER Comment on specimen: L HAND Test(s) ordered: CULTURE, BLOOD................ completed: Sep 08, 2024 * BACTERIOLOGY FINAL REPORT => Sep 08, 2024 08:25 TECH CODE: [id number] Bacteriology Remark(s): Blood culture status=NO GROWTH (unless notified otherwise) 09/03/2024 AEROBIC: NO GROWTH ANAEROBIC: NO GROWTH =--=--=--=--=--=--=--=--=--=-- =--=--=--=--=--=--=--=--=--=-- =--=--=--=--=--=-- Performing Laboratory: Bacteriology Report Performed By: [facility] [CLIA# [id number]] [address] [place], [place] [id number] MAGDY CALABRESE [facility] Aug 29, 2024 10:18 PM LR MICROBIOLOGY RE PORT: Reporting Lab: [facility] [CLIA# [id number]] [address] [place] [id number] Accession [UID]: [id number] [[id number]] Received: Aug 29, 2024@22:18 Collection sample: URINE, CLEAN CATCH Collection date: Aug 29, 2024 22:18 Site/Specimen: URINE Provider: FELISA COLE Test(s) ordered: CULTURE, URINE................ completed: Aug 31, 2024 09:51 * BACTERIOLOGY FINAL REPORT => Aug 31, 2024 09:51 TECH CODE: [id number] Bacteriology Remark(s): NO GROWTH 08/30/2024 <10,000 CFU/ML. 08/31/2024 =--=--=--=--=--=--=--=--=--=-- =--=--=--=--=--=--=--=--=--=-- =--=--=--=--=--=-- Performing Laboratory: Bacteriology Report Performed By: [facility] [CLIA# [id number]] [address] [place] [address] MAGDY CALABRESE-D [facility]
--- OUTSIDE RECORDS SUMMARY | 2024-09-02 16:53 | XMS_ITS ---
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 Name Role Phone YULISSA HENDERSON Primary Care [...] PLAN F Mar 24, 2014 PLAN F [id number] LUIS MANUEL PERDOMO PATIENT [facility] [place] [facility] PREFERRED PROVIDER ORGANIZAT ION (PPO) [facility] Sep 21, 2012 [id number] [phone] LUIS MANUEL PERDOMO PATIENT [employer] ([id number]) PRESCRIPT ION WL3A Sep 21, 2012 [id number] LUIS MANUEL PERDOMO PATIENT MEDICARE (WNR) MEDICARE (M) PART B Sep 21, 2012 PART B [id number] NOEMI PERDOMO PATIENT MEDICARE (WNR) MEDICARE (M) PART A Jan 22, 2011 PART A [id number] LEANNE, NOEMI PATIENT MEDICARE PART D (WNR) MEDICARE (M) PART D Mar 24, 2014 PART D [id number] LUIS MANUEL PERDOMO PATIENT Selected Encounter This section includes the information on record at NH for the Encounter. Date/Time Encounter Type Encounter Description Reason Pro vider Source Sep 02, 2024 08:53 PM Inpatient Visit DAILY HOSPITALIZATION DATA [facility] Encounter Template Text not used by NH Plan of Treatment: Future Appointments (+ 6 months) and Future Tests (+/- 45 days) The Plan of Treatment section includes future care activities for the patient from all [facility]. This section includes future appointments and future orders which are active, pending or scheduled. Future Appointments This section includes appointments that were scheduled to occur 6 months from the date of the Encounter, up to a maximum of 20 appointments. The data comes from all NH treatment facilities. Appointment Date/Time Appointment Type Appointme nt Facility Name Sep 13, 2024 08:00 AM [facility] Sep 30, 2024 01:30 PM [facility] - SURGERY [facility] Active, Pending, and Scheduled Orders This section includes a listing of several types of active, pending, and scheduled orders, including clinic medications orders, diagnostic test orders, procedure orders and consult orders; where the start date of the order is 45 days before the date of the Encounter or 45 days after the date of theEncounter. The data comes from all [facility] facilities. Test Date/Time Test Type Test Details Facility Name Sep 13, 2024 01:33 PM Consult Order [facility] SK[facility] CARE Cons Director Sales Support's Choice [facility] Lab Results: +/- 30 days of the encounter This section includes the Chemistry and Hematology Lab Results on record with NH for the patient. Radiology Reports and Pathology Reports are provided separately, in subsequent sections. Lab Results This section contains the Chemistry/Hematology Results that were resulted 30 days before or 30 daysafter the date of the Encounter. Date/Time Source Result Type Result - Unit Interpretation Reference Range Specimen Type Comment Sep 09, 2024 12:16 PM [facility] GLUCOSE-HAND MONITOR CAPILLARY Specimen Type: CAPILLARY Comment: Test performed by: [id number] Meter #: [id number] Ordering Provider: FRANCK TURNER Report Released Date/Time: Sep 09, 2024 12:33 PM Reporting Lab: [address] [address] Performing Lab: [address] [address] GLUCOSE-HAND MONITOR 116 mg/dL H Sep 09, 2024 06:07 AM [facility] GLUCOSE-HAND MONITOR CAPILLARY Specime n Type: CAPILLARY Comment: Test performed by: [id number] Meter #: [id number] Ordering Provider: FRANCK TURNER Report Released Date/Time: Sep 09, 2024 08:17 AM Reporting Lab: [address] [address] Performing Lab: [address] [address] GLUCOSE-HAND MONITOR 112 mg/dL H Sep 08, 2024 09:13 PM [facility] GLUCOSE-HAND MONITOR CAPILLARY Specime n Type: CAPILLARY Comment: Test performed by: [id number] Meter #: [id number] Ordering Provider: FRANCK TURNER Report Released Date/Time: Sep 08, 2024 09:31 PM Reporting Lab: [address] [address] Performing Lab: [address] [address] GLUCOSE-HAND MONITOR 107 mg/dL H Sep 08, 2024 03:49 PM [facility] GLUCOSE-HAND MONITOR CAPILLARY Specime n Type: CAPILLARY Comment: AAMIR RN notified Test performed by: [id number] Meter #: [id number] Ordering Provider: FRANCK TURNER Report Released Date/Time: Sep 08, 2024 04:33 PM Reporting Lab: [address] [address] Performing Lab: [address] [address] GLUCOSE-HAND MONITOR 162 mg/dL H Sep 08, 2024 11:43 AM [facility] GLUCOSE-HAND MONITOR CAPILLARY Specime n Type: CAPILLARY Comment: AAMIR RN notified Test performed by: [id number] Meter #: [id number] Ordering Provider: FRANCK TURNER Report Released Date/Time: Sep 08, 2024 12:03 PM Reporting Lab: [address] [address] Performing Lab: [address] [address] GLUCOSE-HAND MONITOR 133 mg/dL H Sep 08, 2024 06:13 AM [facility] GLUCOSE-HAND MONITOR CAPILLARY Specime n Type: CAPILLARY Comment: Test performed by: [id number] Meter #: [id number] Ordering Provider: FRANCK TURNER Report Released Date/Time: Sep 08, 2024 06:46 AM Reporting Lab: [address] [address] Performing Lab: [address] [address] GLUCOSE-HAND MONITOR 104 mg/dL H Sep 07, 2024 07:59 PM [facility] GLUCOSE-HAND MONITOR CAPILLARY Specime n Type: CAPILLARY Comment: Test performed by: [id number] Meter #: [id number] Ordering Provider: FRANCK TURNER Report Released Date/Time: Sep 07, 2024 09:05 PM Reporting Lab: [address] [address] Performing Lab: [address] [address] GLUCOSE-HAND MONITOR 107 mg/dL H Sep 07, 2024 04:39 PM [facility] GLUCOSE-HAND MONITOR CAPILLARY Specime n Type: CAPILLARY Comment: Test performed by: [id number] Meter #: [id number] Ordering Provider: FRANCK TURNER Report Released Date/Time: Sep 07, 2024 05:09 PM Reporting Lab: [address] [address] Performing Lab: [address] [address] GLUCOSE-HAND MONITOR 105 mg/dL H Sep 07, 2024 11:41 AM [facility] GLUCOSE-HAND MONITOR CAPILLARY Specime n Type: CAPILLARY Comment: Test performed by: [id number] Meter #: [id number] Ordering Provider: FRANCK TURNER Report Released Date/Time: Sep 07, 2024 12:41 PM Reporting Lab: [address] [address] Performing Lab: [address] [address] GLUCOSE-HAND MONITOR 144 mg/dL H Sep 07, 2024 05:56 AM [facility] GLUCOSE-HAND MONITOR CAPILLARY Specime n Type: CAPILLARY Comment: Test performed by: [id number] Meter #: [id number] Ordering Provider: FRANCK TURNER Report Released Date/Time: Sep 07, 2024 06:31 AM Reporting Lab: [address] [address] Performing Lab: [address] [address] GLUCOSE-HAND MONITOR 96 mg/dL Sep 06, 2024 08:10 PM [facility] GLUCOSE-HAND MONITOR CAPILLARY Specime n Type: CAPILLARY Comment: Test performed by: [id number] Meter #: [id number] Ordering Provider: FRANCK TURNER Report Released Date/Time: Sep 06, 2024 08:52 PM Reporting Lab: [address] [address] Performing Lab: [address] [address] GLUCOSE-HAND MONITOR 124 mg/dL H Sep 06, 2024 04:27 PM [facility] GLUCOSE-HAND MONITOR CAPILLARY Specime n Type: CAPILLARY Comment: Test performed by: [id number] Meter #: [id number] Ordering Provider: FRANCK TURNER Report Released Date/Time: Sep 06, 2024 05:15 PM Reporting Lab: [address] [address] Performing Lab: [address] [address] GLUCOSE-HAND MONITOR 107 mg/dL H Sep 06, 2024 12:12 PM [facility] GLUCOSE-HAND MONITOR CAPILLARY Specime n Type: CAPILLARY Comment: Test performed by: [id number] Meter #: [id number] Ordering Provider: FRANCK TURNER Report Released Date/Time: Sep 06, 2024 12:29 PM Reporting Lab: [address] [address] Performing Lab: [address] [address] GLUCOSE-HAND MONITOR 181 mg/dL H -Sep 06, 2024 06:13 AM [facility] GLUCOSE-HAND MONITOR CAPILLARY Specime n Type: CAPILLARY Comment: Test performed by: [id number] Meter #: [id number] Ordering Provider: FRANCK TURNER Report Released Date/Time: Sep 06, 2024 06:36 AM Reporting Lab: [address] [address] Performing Lab: [address] [address] GLUCOSE-HAND MONITOR 102 mg/dL H Sep 05, 2024 08:47 PM [facility] GLUCOSE-HAND MONITOR CAPILLARY Specime n Type: CAPILLARY Comment: Test performed by: [id number] Meter #: [id number] Ordering Provider: FRANCK TURNER Report Released Date/Time: Sep 06, 2024 02:13 AM Reporting Lab: [address] [address] Performing Lab: [address] [address] GLUCOSE-HAND MONITOR 103 mg/dL H Sep 05, 2024 04:40 PM [facility] GLUCOSE-HAND MONITOR CAPILLARY Specime n Type: CAPILLARY Comment: AAMIR RN notified Test performed by: [id number] Meter #: [id number] Ordering Provider: FRANCK TURNER Report Released Date/Time: Sep 05, 2024 05:11 PM Reporting Lab: [address] [address] Performing Lab: [address] [address] GLUCOSE-HAND MONITOR 113 mg/dL H Sep 05, 2024 12:06 PM [facility] GLUCOSE-HAND MONITOR CAPILLARY Specime n Type: CAPILLARY Comment: Test performed by: [id number] Meter #: [id number] Ordering Provider: FRANCK TURNER Report Released Date/Time: Sep 05, 2024 12:23 PM Reporting Lab: [address] [address] Performing Lab: [address] [address] GLUCOSE-HAND MONITOR 115 mg/dL H Sep 05, 2024 06:26 AM [facility] GLUCOSE-HAND MONITOR CAPILLARY Specime n Type: CAPILLARY Comment: AAMIR Correction Dose Test performed by: [id number] Meter #: [id number] Ordering Provider: FRANCK TURNER Report Released Date/Time: Sep 05, 2024 06:43 AM Reporting Lab: [address] [address] Performing Lab: [address] [address] GLUCOSE-HAND MONITOR 111 mg/dL H Sep 04, 2024 08:59 PM [facility] GLUCOSE-HAND MONITOR CAPILLARY Specime n Type: CAPILLARY Comment: AAMIR RN notified Test performed by: [id number] Meter #: [id number] Ordering Provider: FRANCK TURNER Report Released Date/Time: Sep 04, 2024 09:36 PM Reporting Lab: [address] [address] Performing Lab: [address] [address] GLUCOSE-HAND MONITOR 123 mg/dL H Sep 04, 2024 04:41 PM [facility] GLUCOSE-HAND MONITOR CAPILLARY Specime n Type: CAPILLARY Comment: AAMIR RN notified Test performed by: [id number] Meter #: [id number] Ordering Provider: FRANCK TURNER Report Released Date/Time: Sep 04, 2024 05:03 PM Reporting Lab: [address] [address] Performing Lab: [address] [address] GLUCOSE-HAND MONITOR 118 mg/dL H Sep 04, 2024 12:36 PM [facility] GLUCOSE-HAND MONITOR CAPILLARY Specime n Type: CAPILLARY Comment: AAMIR RN notified Test performed by: [id number] Meter #: [id number] Ordering Provider: FRANCK TURNER Report Released Date/Time: Sep 04, 2024 12:53 PM Reporting Lab: [address] [address] Performing Lab: [place] [address] GLUCOSE-HAND MONITOR 129 mg/dL H 71-99 Sep 04, 2024 12:03 PM [facility] RESPIRATORY VIRUS PANEL (BIOFIRE) NASOPHARYN X Specimen Type: NASOPHARYNX Comment: ~For Test: RESPIRATORY VIRUS PANEL (BIOFIRE) ~ORDER READ BACK TO: FRANCK TURNER 09/04/24@11:30 Ordering Provider: FRANCK TURNER Report Released Date/Time: Sep 04, 2024 11:33 AM Reporting Lab: [place] [phone] Performing Lab: [place] [phone] ADENOVIRUS (BIOFIRE) Not Detected -Not D etected [...] -Not Detected Sep 04, 2024 06:55 AM [facility] MAGNESIUM PLASMA Specimen Type: PLASM A [...] 03, 2024 11:10 AM Reporting Lab: [facility] [address] [facility] [address] Performing Lab: [place] [id number] [facility] [address] MAGNESIUM 1.8 mg/dL 1.6-2.6 Sep 04, 2024 06:55 AM [facility] PANEL 1 PLASMA Specimen Type: [...] Sep 03, 2024 11:10 AM Reporting Lab: [address] [address] Performing Lab: [address] CREATININE 0.75 mg/dL 0.72-1.25 UREA NITROGEN 13 mg/dL 9-25 GLUCOSE 105 mg/dL H 74-100 SODIUM 128 mmol/L L 136-145 POTASSIUM 3.9 mmol/L 3.5-5.1 CHLORIDE 99 mmol/L 98-107 CO2 21 mmol/L L 22-29 CALCIUM 8.0 mg/dL L 8.4-10.2 ANION GAP 8 meq/L 3-19 eGFR (CKD-EPI) >90 Sep 04, 2024 06:02 AM [facility] GLUCOSE-HAND MONITOR CAPILLARY Specime n Type: CAPILLARY Comment: Test performed by: [id number] Meter #: [id number] Ordering Provider: FRANCK TURNER Report Released Date/Time: Sep 04, 2024 06:28 AM Reporting Lab: [address] Performing Lab: [address] GLUCOSE-HAND MONITOR 114 mg/dL H 71-99 Sep 03, 2024 05:19 PM [facility] GLUCOSE-HAND MONITOR CAPILLARY Specime n Type: CAPILLARY Comment: Test performed by: [id number] Meter #: [id number] Ordering Provider: FRANCK TURNER Report Released Date/Time: Sep 03, 2024 05:37 PM Reporting Lab: [address] Performing Lab: [address] [address] GLUCOSE-HAND MONITOR 124 mg/dL H 71-99 Sep 03, 2024 04:41 PM [facility] GLUCOSE-HAND MONITOR CAPILLARY Specime n Type: CAPILLARY Comment: Test performed by: [id number] Meter #: [id number] Ordering Provider: FRANCK TURNER Report Released Date/Time: Sep 03, 2024 06:09 PM Reporting Lab: [address] [address] Performing Lab: [address] [address] GLUCOSE-HAND MONITOR 112 mg/dL H 71-99 Sep 03, 2024 01:35 PM [facility] URINE LYTES URINE Specimen Type : URINE Comment: ~Altered mental status with no identifiable cause Ordering Provider: FRANCK TURNER Report Released Date/Time: Sep 02, 2024 04:44 PM Reporting Lab: [address] [address] Performing Lab: [address] [address] SODIUM 130 mmol/L POTASSIUM 47.6 mmol/L CHLORIDE 137 mmol/L Sep 03, 2024 01:35 PM [facility] CREATININE URINE Specimen Type: URINE Comment: ~Altered mental status with no identifiable cause Ordering Provider: FRANCK TURNER Report Released Date/Time: Sep 02, 2024 04:44 PM Reporting Lab: [address] [address] Performing Lab: [address] [address] CREATININE 150.9 mg/dL Sep 03, 2024 01:35 PM [facility] URINALYSIS WITH REFLEX TO CULTURE URINE Specimen Type: URINE Comment: ~Altered mental status with no identifiable cause Ordering Provider: FRANCK TURNER Report Released Date/Time: Sep 02, 2024 04:44 PM Reporting Lab: [address] [address] Performing Lab: [address] [address] URINE COLOR Yellow Colorless-Yellow APPEARANCE CLOUDY H [...] H 0-28 Sep 03, 2024 01:35 PM [facility] UREA NITROGEN URINE Specimen Type : URINE Comment: ~Altered mental status with no identifiable cause Ordering Provider: FRANCK TURNER Report Released Date/Time: Sep 02, 2024 04:44 PM Reporting Lab: [address] [address] Performing Lab: [address] [address] UREA NITROGEN 320 mg/dL Sep 03, 2024 01:35 PM [facility] OSMOLALITY URINE Specimen Type: URINE Comment: ~Altered mental status with no identifiable cause Ordering Provider: FRANCK TURNER Report Released Date/Time: Sep 02, 2024 04:44 PM Reporting Lab: [address] [address] Performing Lab: [place] [phone] OSMOLALITY 522 mosm/kg 38-1400 Sep 03, 2024 11:58 AM [facility] GLUCOSE-HAND MONITOR CAPILLARY Specime n Type: CAPILLARY Comment: AAMIR RN notified Test performed by: [id number] Meter #: [id number] Ordering Provider: FRANCK TURNER Report Released Date/Time: Sep 03, 2024 12:15 PM Reporting Lab: [address] [address] Performing Lab: [address] [address] GLUCOSE-HAND MONITOR 135 mg/dL H -Sep 03, 2024 07:09 AM [facility] GLUCOSE-HAND MONITOR CAPILLARY Specime n Type: CAPILLARY Comment: Test performed by: [id number] Meter #: [id number] Ordering Provider: FRANCK TURNER Report Released Date/Time: Sep 03, 2024 07:26 AM Reporting Lab: [address] [address] Performing Lab: [address] [address] GLUCOSE-HAND MONITOR 120 mg/dL H -Sep 03, 2024 07:05 AM [facility] CBC/PLT BLOOD Specimen Type: BLOOD No comment entered. Ordering Provider: FRANCK TURNER Report Released Date/Time: Sep 02, 2024 04:29 PM Reporting Lab: [address] [address] Performing Lab: [address] [address] WBC 6.9 10*3/uL 5.0-10.0 RBC 3.48 10*6/uL L 4.6-6.2 HGB 9.5 g/dL L 14.0-18.0 HCT 29.1 L 42.0-52.0 MCV 83.6 fL 80.0-94.0 MCH 27.3 pg 27.0-31.0 MCHC 32.6 g/dL 32.0-36.0 PLT 258 10*3/uL 150-450 MPV 10.3 fL 9.0-13.1 RDW 14.8 11.0-16.0 NRBC 0.0 0.0-0.0 Sep 03, 2024 07:05 AM [facility] MAGNESIUM PLASMA Specimen Type: PLASM A [...] Sep 02, 2024 04:29 PM Reporting Lab: [address] [address] Performing Lab: [address] [address] MAGNESIUM 1.7 mg/dL 1.6-2.6 Sep 03, 2024 07:05 AM [facility] GLYCOHEMOGLOBIN BLOOD Specimen Type: BLOOD Comment: Prediabetes: 5.7%-6.4% Diabetes: >= 6.5% [facility] guidelines for A1c interpretation: Glycemic control targets are based on Shared Decision Making between clinicians and patients. Criteria used to establish an A1c target recommendation can be found at https://www.tn.gov/qualityandpatientsafety/ and include the use of result accuracy [...] 8.73 and 9.27. Ref: https://ngsp.org/CAPdata.asp. The in-house [employer] Local D-100 analyzer has a historical CV <= 2%. Contact the laboratory for further performance characteristics of this assay. Ordering Provider: ALSIP,FRANCK ROBERTDAVID Report Released Date/Time: Sep 02, 2024 04:29 PM Reporting Lab: [facility] [address] [facility] [address] Performing Lab: [address] [address] GLYCOHEMOGLOBIN 5.6 4.4-5.6 Sep 03, 2024 07:05 AM [facility] PANEL 1 PLASMA Specimen Type: [...] Sep 02, 2024 04:29 PM Reporting Lab: [address] [address] Performing Lab: [address] [address] CREATININE 0.82 mg/dL 0.72-1.25 UREA NITROGEN 12 mg/dL 9-25 GLUCOSE 109 mg/dL H 74-100 SODIUM 129 mmol/L L 136-145 POTASSIUM 4.2 mmol/L 3.5-5.1 CHLORIDE 99 mmol/L 98-107 CO2 21 mmol/L L 22-29 CALCIUM 8.1 mg/dL L 8.4-10.2 ANION GAP 9 meq/L 3-19 eGFR (CKD-EPI) 90 Sep 03, 2024 07:05 AM [facility] OSMOLALITY SERUM Specimen Type: SERUM No comment entered. Ordering Provider: FRANCK TURNER Report Released Date/Time: Sep 02, 2024 04:44 PM Reporting Lab: [address] [address] Performing Lab: [address] [address] OSMOLALITY 271 mosm/kg L 280-300 Sep 02, 2024 08:15 PM [facility] GLUCOSE-HAND MONITOR CAPILLARY Specime n Type: CAPILLARY Comment: AAMIR DEXTER notified Test performed by: [id number] Meter #: [id number] Ordering Provider: FRANCK TURNER Report Released Date/Time: Sep 02, 2024 08:57 PM Reporting Lab: [address] [address] Performing Lab: [address] [address] GLUCOSE-HAND MONITOR 126 mg/dL H 71-99 Sep 02, 2024 06:10 PM [facility] MRSA SURVL NARES DNA NARES Specime [...] Sep 02, 2024 05:12 PM Reporting Lab: [address] [address] Performing Lab: [address] [address] MRSA SURVL NARES DNA Negative Negative Sep 02, 2024 05:36 PM [facility] GLUCOSE-HAND MONITOR CAPILLARY Specime n Type: CAPILLARY Comment: Test performed by: [id number] Meter #: [id number] Ordering Provider: FRANCK TURNER Report Released Date/Time: Sep 02, 2024 05:53 PM Reporting Lab: [address] [address] Performing Lab: [address] [address] GLUCOSE-HAND MONITOR 127 mg/dL H 71-99 Aug 29, 2024 10:04 PM [facility] URINALYSIS WITH REFLEX TO CULTURE URINE Specimen Type: URINE Comment: ~For Test: URINALYSIS WITH REFLEX TO CULTURE ~REORDER Ordering Provider: FELISA COLE Report Released Date/Time: Aug 29, 2024 09:36 PM Reporting Lab: [address] [address] Performing Lab: [address] [address] URINE COLOR Yellow Colorless-Yellow APPEARANCE Clear Clear [...] /[LPF] 0-28 Aug 29, 2024 08:32 PM [facility] HIGH SENSITIVITY TROPONIN I PLASMA Specimen [...] Aug 29, 2024 07:55 PM Reporting Lab: [address] [address] Performing Lab: [address] [address] HIGH SENSITIVITY TROPONIN I 7 4-35 Aug 29, 2024 08:32 PM [facility] CBC/PLT BLOOD Specimen Type: BLOOD No comment entered. Ordering Provider: FELISA COLE Report Released Date/Time: Aug 29, 2024 07:55 PM Reporting Lab: [address] [address] Performing Lab: [address] [address] WBC 11.2 10*3/uL H 5.0-10.0 RBC 3.97 10*6/uL L 4.6-6.2 HGB 10.9 g/dL L 14.0-18.0 HCT 33.5 L 42.0-52.0 MCV 84.4 fL 80.0-94.0 MCH 27.5 pg 27.0-31.0 MCHC 32.5 g/dL 32.0-36.0 PLT 230 10*3/uL 150-450 MPV 10.2 fL 9.0-13.1 RDW 14.6 11.0-16.0 NRBC 0.0 0.0-0.0 Aug 29, 2024 08:32 PM [facility] PANEL 5 PLASMA Specimen Type: PLASM [...] Aug 29, 2024 07:55 PM Reporting Lab: [address] [address] Performing Lab: [address] [address] CREATININE 0.85 mg/dL 0.72-1.25 UREA NITROGEN 15 [...] 18 /min 95 % 0 [place] [facility] Sep 02, 2024 05:01 PM 0 [place] [facility] Advance Directives: All historical and current Section Date Range: From patient's date of to the date document was created. This section includes ALL of a patient's completed or amended [place] Advance and Rescinded Directives. The entries below indicate that a directive exists for the patient, but an actual copy is not included with this document. The data comes from all NH facilities. Date Advance Directives Provider Source Mar 08, 2024 ADVANCE DIRECTIVE DISCUSSION [place] [facility] Radiology Reports: +/- 30 days of [...] the Encounter. The data comes from all [place] treatment facilities. Date/Time Radiology Report Provider Source Sep 06, 2024 01:40 PM MRI BRAIN W & W/O: LUIS MANUEL PERDOMO [id number] -1945 M Exm Date: SEP 06, 2024@13:40 Req Phys: FRANCK TURNER Loc: 5-MED/TEL/09-06-2024@19:09 Img Loc: [facility] Service: [facility] [place] [id number] (Case [id number] COMPLETE) MRI BRAIN W & W/O (MRI Detailed) CPT:72388 Contrast Media : Gadolinium Reason for Study: SEE CLINICAL HISTORY Pharmaceutical: GADOTERIDOL 279.3MG/ML 20ML INJ, 19ml Clinical History: MRI Screening (Required): IMPLANTED DEVICE DOCUMENTATION IMPLANTED DEVICE DOCUMENTATION NOT FOUND Does the have any Cardiac Implants? None Does the have any implanted stimulators? None Does the have cochlear implants? No Does the [place] have Cerebral aneurysm clip(s)? I don't know Does the [place] have any shrapnel? I don't know If [...] 06, 2024 Date Verified: SEP 06, 2024 Furnace Puncher E-Sig: Report: MRI brain without and with [...] Staff: ARCENIO LEYVA, Staff Radiologist Verified by local sales manager for ARCENIO LEYVA /[facility] Sep 06, 2024 01:40 PM MRI C SPINE W & W/ O CONTRAST(FURTHER SEQUENCES): LUIS MANUEL PERDOMO [id number] [phone] M Exm Date: SEP 06, 2024@13:40 Req Phys: FRANCK TURNER Pat Loc: 5-MED/TEL/09-07-2024@06:42 [facility] Loc: [facility] Service: MEDICAL SERVICE [place] [id number] (Case [id number] COMPLETE) MRI C SPINE W & W/O CONTRAST(FURT(MRI Detailed) CPT:34452 Contrast Media : Gadolinium Reason for Study: SEE CLINICAL HISTORY Pharmaceutical: GADOTERIDOL 279.3MG/ML 20ML INJ, 19ml Clinical History: STATUS OF PLAIN FILMS:Not performed (Provide justification for MR W/O prior plain films below.) MRI for MS MRI Screening (Required): IMPLANTED DEVICE DOCUMENTATION IMPLANTED DEVICE DOCUMENTATION NOT FOUND Does the [place] have any Cardiac Implants? None Does the [place] have any implanted stimulators? None Does the [place] have cochlear implants? No Does the have Cerebral aneurysm clip(s)? I don't know Does the [place] have any shrapnel? I don't know If yes, where in your body? Please list other implants not listed above: MRI table has a weight limit of 551 lbs. [place]'s Weight: *212 lb [96.16 kg] (09/04/2024 05:19) Is this patient claustrophobic?: No REASON FOR EXAM: MULTIPLE SCLEROSIS (indicate suspected or established) PERTINENT PATIENT HISTORY: MS c/f flare Risk factors for GADOLINIUM NEPHROGENIC SYSTEMIC SCLEROSIS: Report Status: Verified Date Reported: SEP 07, 2024 Date Verified: SEP 07, 2024 Furnace Puncher E-Sig: Report: EXAMINATION: MRI OF THE CERVICAL [...] Interpreting Staff: HUANG TAI, Radiologist Verified by local sales manager for HUANG TAI /HUANG WHEATLEY-MAL[facility] Sep 03, 2024 10:45 AM CHEST SINGLE(1) EW: LEANNELUIS MANUEL FINCH [id number] -1945 M Exm Date: SEP 03, 2024@10:45 Req Phys: FRANCK TURNER [facility] Loc: 5-MED/TEL/09-03-2024@10:56 Img Loc: CDD RADIOLOGY Service: [place] [address] (Case [id number] COMPLETE)CHEST SINGLE(1) VIEW (RAD Detailed) CPT:48706 Proc Modifiers : PORTABLE EXAM Reason for Study: Eval volume status Clinical History: Report Status: Verified Date Reported: SEP 03, 2024 Date Verified: SEP 03, 2024 Furnace Puncher E-Sig: Report: EXAMINATION: SINGLE VIEW CHEST CLINICAL [...] Interpreting Staff: HUANG TAI, Radiologist Verified by local sales manager for HUANG TAI /HUANG WHEATLEYSav [facility] Aug 29, 2024 08:[address] HEAD W/O CONT: LUIS MANUEL PERDOMO [id number] -1945 M Exm Date: AUG 29, 2024@20:28 Req Phys: FELISA COLE [facility] Loc: ED/4P-12A (Req'g Loc) Img Loc: CT SCAN Service: [place] [address] (Case [id number] COMPLETE) CT HEAD W/O CONT (CT Detailed) CPT:19654 Reason for Study: SEE CLINICAL HISTORY Clinical History: REASON FOR SEND OUT: ATTENDING PHYSICIAN NAME: New transient neurological s/s - suspected TIA HISTORY/REASON FOR EXAM: confusion Report Status: Verified Date Reported: AUG 29, 2024 Date Verified: AUG 29, 2024 Furnace Puncher E-Sig: Report: HISTORY confusion COMPARISON No prior [...] Staff: ABDIRAHMAN CROW Staff Physician Verified by local sales manager for ABDIRAHMAN CROW /ABDIRAHMAN [facility]K [facility] [...] the Encounter. The data comes from all [facility] facilities. Date/Time Pathology Report Provider Source Sep 03, 2024 01:35 PM LR MICROBIOLOGY RE PORT: Reporting Lab: [facility] [IA# [id number]] [address] [place] [id number] Accession [UID]: [id number] [[id number]] Received: Sep 03, 2024@14:02 Collection sample: URINE, [...] =--=--=--=--=--=-- Performing Laboratory: Bacteriology Report Performed By: [facility] [CLIA# [id number]] [address] [place] [id number] MAGDY CALABRESE-MALKA [facility] Sep 02, 2024 06:00 PM LR MICROBIOLOGY RE PORT: Reporting Lab: [facility] [CLIA# [id number]] [address] [place] [id number] Accession [UID]: [id number] [[id number]] Received: Sep 02, 2024@18:07 Collection sample: BLD CULTURE BOTTLES Collection date: Sep 02, 2024 18:00 Site/Specimen: BLOOD Provider: FRANCK TURNER Comment on specimen: L HAND Test(s) ordered: CULTURE, BLOOD................ completed: Sep 08, 2024 * BACTERIOLOGY FINAL REPORT => Sep 08, 2024 08:25 TECH CODE: [id number] Bacteriology Remark(s): Blood culture status=NO GROWTH (unless notified otherwise) 09/03/2024 AEROBIC: NO GROWTH ANAEROBIC: NO GROWTH =--=--=--=--=--=--=--=--=--=-- =--=--=--=--=--=--=--=--=--=-- =--=--=--=--=--=-- Performing Laboratory: Bacteriology Report Performed By: [facility] [CLIA# [id number]] [address] [place], [place] [id number] MAGDY CALABRESE [facility] Aug 29, 2024 10:18 PM LR MICROBIOLOGY RE PORT: Reporting Lab: [facility] [CLIA# [id number]] [address] [place] [id number] Accession [UID]: [id number] [[id number]] Received: Aug 29, 2024@22:18 Collection sample: URINE, CLEAN CATCH Collection date: Aug 29, 2024 22:18 Site/Specimen: URINE Provider: FELISA COLE Test(s) ordered: CULTURE, URINE................ completed: Aug 31, 2024 09:51 * BACTERIOLOGY FINAL REPORT => Aug 31, 2024 09:51 TECH CODE: [id number] Bacteriology Remark(s): NO GROWTH 08/30/2024 <10,000 CFU/ML. 08/31/2024 =--=--=--=--=--=--=--=--=--=-- =--=--=--=--=--=--=--=--=--=-- =--=--=--=--=--=-- Performing Laboratory: Bacteriology Report Performed By: [facility] [CLIA# [id number]] [address] [place] [address] MAGDY CALABRESE-D [facility]
--- OUTSIDE RECORDS SUMMARY | 2024-09-02 17:22 | XMS_ITS ---
[place] DAILY HOSPITALIZATION DATA [facility] Encounter Summary Created on: September 22, 2024 LUIS MANUEL PERDOMO : 1945 Sex: Male Author Name [facility] Address [address] [place] [address] Care Team Providers Care Used Car Lot Attendant Name Role Phone YULISSA HENDERSON Primary Care [...] PLAN F Mar 24, 2014 PLAN F [id number] LUIS MANUEL PERDOMO PATIENT [facility] [place] [facility] PREFERRED PROVIDER ORGANIZAT ION (PPO) [facility] Sep 21, 2012 [id number] [phone] LUIS MANUEL EPRDOMO PATIENT [employer] ([id number]) PRESCRIPT ION WL3A Sep 21, 2012 [id number] LUIS MANUEL PERDOMO PATIENT MEDICARE (WNR) MEDICARE (M) PART B Sep 21, 2012 PART B [id number] NOEMI PERDOMO PATIENT MEDICARE (WNR) MEDICARE (M) PART A Jan 22, 2011 PART A [id number] LEANNE, NOEMI PATIENT MEDICARE PART D (WNR) MEDICARE (M) PART D Mar 24, 2014 PART D [id number] LUIS MANUEL PERDOMO PATIENT Selected Encounter This section includes the information on record at [place] for the Encounter. Date/Time Encounter Type Encounter Description Reason Pro vider Source Sep 02, 2024 09:22 PM Inpatient Visit DAILY HOSPITALIZATION DATA [facility] Encounter Template Text not used by [place] Plan of Treatment: Future Appointments (+ 6 months) and Future Tests (+/- 45 days) The Plan of Treatment section includes future care activities for the patient from all [place] [facility]. This section includes future appointments [...] 13, 2024 08:00 AM AMBULATORY - NONE [facility] Sep 30, 2024 01:30 PM AMBULATORY - SURGERY [facility] Active, Pending, and Scheduled Orders This [...] Sep 13, 2024 01:33 PM Consult Order [facility] Cons Pesticide Control Inspector's Choice [facility] Lab Results: +/- 30 days [...] Type Comment Sep 09, 2024 12:16 PM [facility] GLUCOSE-HAND MONITOR CAPILLARY Specimen Type: CAPILLARY Comment: Test performed by: [id number] Meter #: [id number] Ordering Provider: FRANCK TURNER Report Released Date/Time: Sep 09, 2024 12:33 PM Reporting Lab: [address] [address] Performing Lab: [address] [address] GLUCOSE-HAND MONITOR 116 mg/dL H Sep 09, 2024 06:07 AM [facility] GLUCOSE-HAND MONITOR CAPILLARY Specime n Type: CAPILLARY Comment: Test performed by: [id number] Meter #: [id number] Ordering Provider: FRANCK TURNER Report Released Date/Time: Sep 09, 2024 08:17 AM Reporting Lab: [address] [address] Performing Lab: [address] [address] GLUCOSE-HAND MONITOR 112 mg/dL H Sep 08, 2024 09:13 PM [facility] GLUCOSE-HAND MONITOR CAPILLARY Specime n Type: CAPILLARY Comment: Test performed by: [id number] Meter #: [id number] Ordering Provider: FRANCK TURNER Report Released Date/Time: Sep 08, 2024 09:31 PM Reporting Lab: [address] [address] Performing Lab: [address] [address] GLUCOSE-HAND MONITOR 107 mg/dL H Sep 08, 2024 03:49 PM [facility] GLUCOSE-HAND MONITOR CAPILLARY Specime n Type: CAPILLARY Comment: AAMIR RN notified Test performed by: [id number] Meter #: [id number] Ordering Provider: FRANCK TURNER Report Released Date/Time: Sep 08, 2024 04:33 PM Reporting Lab: [address] [address] Performing Lab: [address] [address] GLUCOSE-HAND MONITOR 162 mg/dL H Sep 08, 2024 11:43 AM [facility] GLUCOSE-HAND MONITOR CAPILLARY Specime n Type: CAPILLARY Comment: AAMIR RN notified Test performed by: [id number] Meter #: [id number] Ordering Provider: FRANCK TURNER Report Released Date/Time: Sep 08, 2024 12:03 PM Reporting Lab: [address] [address] Performing Lab: [address] [address] GLUCOSE-HAND MONITOR 133 mg/dL H Sep 08, 2024 06:13 AM [facility] GLUCOSE-HAND MONITOR CAPILLARY Specime n Type: CAPILLARY Comment: Test performed by: [id number] Meter #: [id number] Ordering Provider: FRANCK TURNER Report Released Date/Time: Sep 08, 2024 06:46 AM Reporting Lab: [address] [address] Performing Lab: [address] [address] GLUCOSE-HAND MONITOR 104 mg/dL H Sep 07, 2024 07:59 PM [facility] GLUCOSE-HAND MONITOR CAPILLARY Specime n Type: CAPILLARY Comment: Test performed by: [id number] Meter #: [id number] Ordering Provider: FRANCK TURNER Report Released Date/Time: Sep 07, 2024 09:05 PM Reporting Lab: [address] [address] Performing Lab: [address] [address] GLUCOSE-HAND MONITOR 107 mg/dL H Sep 07, 2024 04:39 PM [facility] GLUCOSE-HAND MONITOR CAPILLARY Specime n Type: CAPILLARY Comment: Test performed by: [id number] Meter #: [id number] Ordering Provider: FRANCK TURNER Report Released Date/Time: Sep 07, 2024 05:09 PM Reporting Lab: [address] [address] Performing Lab: [address] [address] GLUCOSE-HAND MONITOR 105 mg/dL H Sep 07, 2024 11:41 AM [facility] GLUCOSE-HAND MONITOR CAPILLARY Specime n Type: CAPILLARY Comment: Test performed by: [id number] Meter #: [id number] Ordering Provider: FRANCK TURNER Report Released Date/Time: Sep 07, 2024 12:41 PM Reporting Lab: [address] [address] Performing Lab: [address] [address] GLUCOSE-HAND MONITOR 144 mg/dL H Sep 07, 2024 05:56 AM [facility] GLUCOSE-HAND MONITOR CAPILLARY Specime n Type: CAPILLARY Comment: Test performed by: [id number] Meter #: [id number] Ordering Provider: FRANCK TURNER Report Released Date/Time: Sep 07, 2024 06:31 AM Reporting Lab: [address] [address] Performing Lab: [address] [address] GLUCOSE-HAND MONITOR 96 mg/dL Sep 06, 2024 08:10 PM [facility] GLUCOSE-HAND MONITOR CAPILLARY Specime n Type: CAPILLARY Comment: Test performed by: [id number] Meter #: [id number] Ordering Provider: FRANCK TURNER Report Released Date/Time: Sep 06, 2024 08:52 PM Reporting Lab: [address] [address] Performing Lab: [address] [address] GLUCOSE-HAND MONITOR 124 mg/dL H Sep 06, 2024 04:27 PM [facility] GLUCOSE-HAND MONITOR CAPILLARY Specime n Type: CAPILLARY Comment: Test performed by: [id number] Meter #: [id number] Ordering Provider: FRANCK TURNER Report Released Date/Time: Sep 06, 2024 05:15 PM Reporting Lab: [address] [address] Performing Lab: [address] [address] GLUCOSE-HAND MONITOR 107 mg/dL H Sep 06, 2024 12:12 PM [facility] GLUCOSE-HAND MONITOR CAPILLARY Specime n Type: CAPILLARY Comment: Test performed by: [id number] Meter #: [id number] Ordering Provider: FRANCK TURNER Report Released Date/Time: Sep 06, 2024 12:29 PM Reporting Lab: [address] [address] Performing Lab: [address] [address] GLUCOSE-HAND MONITOR 181 mg/dL H -Sep 06, 2024 06:13 AM [facility] GLUCOSE-HAND MONITOR CAPILLARY Specime n Type: CAPILLARY Comment: Test performed by: [id number] Meter #: [id number] Ordering Provider: FRANCK TURNER Report Released Date/Time: Sep 06, 2024 06:36 AM Reporting Lab: [address] [address] Performing Lab: [address] [address] GLUCOSE-HAND MONITOR 102 mg/dL H Sep 05, 2024 08:47 PM [facility] GLUCOSE-HAND MONITOR CAPILLARY Specime n Type: CAPILLARY Comment: Test performed by: [id number] Meter #: [id number] Ordering Provider: FRANCK TURNER Report Released Date/Time: Sep 06, 2024 02:13 AM Reporting Lab: [address] [address] Performing Lab: [address] [address] GLUCOSE-HAND MONITOR 103 mg/dL H Sep 05, 2024 04:40 PM [facility] GLUCOSE-HAND MONITOR CAPILLARY Specime n Type: CAPILLARY Comment: AAMIR RN notified Test performed by: [id number] Meter #: [id number] Ordering Provider: FRANCK TURNER Report Released Date/Time: Sep 05, 2024 05:11 PM Reporting Lab: [address] [address] Performing Lab: [address] [address] GLUCOSE-HAND MONITOR 113 mg/dL H Sep 05, 2024 12:06 PM [facility] GLUCOSE-HAND MONITOR CAPILLARY Specime n Type: CAPILLARY Comment: Test performed by: [id number] Meter #: [id number] Ordering Provider: FRANCK TURNER Report Released Date/Time: Sep 05, 2024 12:23 PM Reporting Lab: [address] [address] Performing Lab: [address] [address] GLUCOSE-HAND MONITOR 115 mg/dL H Sep 05, 2024 06:26 AM [facility] GLUCOSE-HAND MONITOR CAPILLARY Specime n Type: CAPILLARY Comment: AAMIR Correction Dose Test performed by: [id number] Meter #: [id number] Ordering Provider: FRANCK TURNER Report Released Date/Time: Sep 05, 2024 06:43 AM Reporting Lab: [address] [address] Performing Lab: [address] [address] GLUCOSE-HAND MONITOR 111 mg/dL H Sep 04, 2024 08:59 PM [facility] GLUCOSE-HAND MONITOR CAPILLARY Specime n Type: CAPILLARY Comment: AAMIR RN notified Test performed by: [id number] Meter #: [id number] Ordering Provider: FRANCK TURNER Report Released Date/Time: Sep 04, 2024 09:36 PM Reporting Lab: [address] [address] Performing Lab: [address] [address] GLUCOSE-HAND MONITOR 123 mg/dL H Sep 04, 2024 04:41 PM [facility] GLUCOSE-HAND MONITOR CAPILLARY Specime n Type: CAPILLARY Comment: AAMIR RN notified Test performed by: [id number] Meter #: [id number] Ordering Provider: FRANCK TURNER Report Released Date/Time: Sep 04, 2024 05:03 PM Reporting Lab: [address] [address] Performing Lab: [address] [address] GLUCOSE-HAND MONITOR 118 mg/dL H Sep 04, 2024 12:36 PM [facility] GLUCOSE-HAND MONITOR CAPILLARY Specime n Type: CAPILLARY Comment: AAMIR RN notified Test performed by: [id number] Meter #: [id number] Ordering Provider: FRANCK TURNER Report Released Date/Time: Sep 04, 2024 12:53 PM Reporting Lab: [address] [address] Performing Lab: [place] [address] GLUCOSE-HAND MONITOR 129 mg/dL H 71-99 Sep 04, 2024 12:03 PM [facility] RESPIRATORY VIRUS PANEL (BIOFIRE) NASOPHARYN X Specimen Type: NASOPHARYNX Comment: ~For Test: RESPIRATORY VIRUS PANEL (BIOFIRE) ~ORDER READ BACK TO: FRANCK TURNER 09/04/24@11:30 Ordering Provider: FRANCK TURNER Report Released Date/Time: Sep 04, 2024 11:33 AM Reporting Lab: [place] [phone] Performing Lab: [place] [phone] ADENOVIRUS (BIOFIRE) Not Detected -Not D etected [...] -Not Detected Sep 04, 2024 06:55 AM [facility] MAGNESIUM PLASMA Specimen Type: PLASM [...] 03, 2024 11:10 AM Reporting Lab: [place] [facility] [address] [facility] [address] Performing Lab: [place] [address] [facility] [address] MAGNESIUM 1.8 mg/dL 1.6-2.6 Sep 04, 2024 06:55 AM [facility] PANEL 1 PLASMA Specimen Type: [...] Sep 03, 2024 11:10 AM Reporting Lab: [address] [address] Performing Lab: [address] CREATININE 0.75 mg/dL 0.72-1.25 UREA NITROGEN 13 mg/dL 9-25 GLUCOSE 105 mg/dL H 74-100 SODIUM 128 mmol/L L 136-145 POTASSIUM 3.9 mmol/L 3.5-5.1 CHLORIDE 99 mmol/L 98-107 CO2 21 mmol/L L 22-29 CALCIUM 8.0 mg/dL L 8.4-10.2 ANION GAP 8 meq/L 3-19 eGFR (CKD-EPI) >90 Sep 04, 2024 06:02 AM [facility] GLUCOSE-HAND MONITOR CAPILLARY Specime n Type: CAPILLARY Comment: Test performed by: [id number] Meter #: [id number] Ordering Provider: FRANCK TURNER Report Released Date/Time: Sep 04, 2024 06:28 AM Reporting Lab: [address] Performing Lab: [address] GLUCOSE-HAND MONITOR 114 mg/dL H 71-99 Sep 03, 2024 05:19 PM [facility] GLUCOSE-HAND MONITOR CAPILLARY Specime n Type: CAPILLARY Comment: Test performed by: [id number] Meter #: [id number] Ordering Provider: FRANCK TURNER Report Released Date/Time: Sep 03, 2024 05:37 PM Reporting Lab: [address] Performing Lab: [address] [address] GLUCOSE-HAND MONITOR 124 mg/dL H 71-99 Sep 03, 2024 04:41 PM [facility] GLUCOSE-HAND MONITOR CAPILLARY Specime n Type: CAPILLARY Comment: Test performed by: [id number] Meter #: [id number] Ordering Provider: FRANCK TURNER Report Released Date/Time: Sep 03, 2024 06:09 PM Reporting Lab: [address] [address] Performing Lab: [address] [address] GLUCOSE-HAND MONITOR 112 mg/dL H 71-99 Sep 03, 2024 01:35 PM [facility] URINE LYTES URINE Specimen Type : URINE Comment: ~Altered mental status with no identifiable cause Ordering Provider: FRANCK TURNER Report Released Date/Time: Sep 02, 2024 04:44 PM Reporting Lab: [address] [address] Performing Lab: [address] [address] SODIUM 130 mmol/L POTASSIUM 47.6 mmol/L CHLORIDE 137 mmol/L Sep 03, 2024 01:35 PM [facility] CREATININE URINE Specimen Type: URINE Comment: ~Altered mental status with no identifiable cause Ordering Provider: FRANCK TURNER Report Released Date/Time: Sep 02, 2024 04:44 PM Reporting Lab: [address] [address] Performing Lab: [address] [address] CREATININE 150.9 mg/dL Sep 03, 2024 01:35 PM [facility] URINALYSIS WITH REFLEX TO CULTURE URINE Specimen Type: URINE Comment: ~Altered mental status with no identifiable cause Ordering Provider: FRANCK TURNER Report Released Date/Time: Sep 02, 2024 04:44 PM Reporting Lab: [address] [address] Performing Lab: [address] [address] URINE COLOR Yellow Colorless-Yellow APPEARANCE CLOUDY H [...] H 0-28 Sep 03, 2024 01:35 PM [facility] UREA NITROGEN URINE Specimen Type : URINE Comment: ~Altered mental status with no identifiable cause Ordering Provider: FRANCK TURNER Report Released Date/Time: Sep 02, 2024 04:44 PM Reporting Lab: [address] [address] Performing Lab: [address] [address] UREA NITROGEN 320 mg/dL Sep 03, 2024 01:35 PM [facility] OSMOLALITY URINE Specimen Type: URINE Comment: ~Altered mental status with no identifiable cause Ordering Provider: FRANCK TURNER Report Released Date/Time: Sep 02, 2024 04:44 PM Reporting Lab: [address] [address] Performing Lab: [place] [phone] OSMOLALITY 522 mosm/kg 38-1400 Sep 03, 2024 11:58 AM [facility] GLUCOSE-HAND MONITOR CAPILLARY Specime n Type: CAPILLARY Comment: AAMIR RN notified Test performed by: [id number] Meter #: [id number] Ordering Provider: FRANCK TURNER Report Released Date/Time: Sep 03, 2024 12:15 PM Reporting Lab: [address] [address] Performing Lab: [address] [address] GLUCOSE-HAND MONITOR 135 mg/dL H -Sep 03, 2024 07:09 AM [facility] GLUCOSE-HAND MONITOR CAPILLARY Specime n Type: CAPILLARY Comment: Test performed by: [id number] Meter #: [id number] Ordering Provider: FRANCK TURNER Report Released Date/Time: Sep 03, 2024 07:26 AM Reporting Lab: [address] [address] Performing Lab: [address] [address] GLUCOSE-HAND MONITOR 120 mg/dL H -Sep 03, 2024 07:05 AM [facility] CBC/PLT BLOOD Specimen Type: BLOOD No comment entered. Ordering Provider: FRANCK TURNER Report Released Date/Time: Sep 02, 2024 04:29 PM Reporting Lab: [address] [address] Performing Lab: [address] [address] WBC 6.9 10*3/uL 5.0-10.0 RBC 3.48 10*6/uL L 4.6-6.2 HGB 9.5 g/dL L 14.0-18.0 HCT 29.1 L 42.0-52.0 MCV 83.6 fL 80.0-94.0 MCH 27.3 pg 27.0-31.0 MCHC 32.6 g/dL 32.0-36.0 PLT 258 10*3/uL 150-450 MPV 10.3 fL 9.0-13.1 RDW 14.8 11.0-16.0 NRBC 0.0 0.0-0.0 Sep 03, 2024 07:05 AM [facility] MAGNESIUM PLASMA Specimen Type: PLASM [...] Sep 02, 2024 04:29 PM Reporting Lab: [address] [address] Performing Lab: [address] [address] MAGNESIUM 1.7 mg/dL 1.6-2.6 Sep 03, 2024 07:05 AM [facility] GLYCOHEMOGLOBIN BLOOD Specimen Type: BLOOD Comment: Prediabetes: 5.7%-6.4% Diabetes: >= 6.5% [facility] guidelines for A1c interpretation: Glycemic control targets are based on Shared Decision Making between clinicians and patients. Criteria used to establish an A1c target recommendation can be found at https://www.me.gov/qualityandpatientsafety/ and include the use of result accuracy [...] 8.73 and 9.27. Ref: https://ngsp.org/CAPdata.asp. The in-house RES Software-SiteMinder D-100 analyzer has a historical CV <= 2%. Contact the laboratory for further performance characteristics of this assay. Ordering Provider: ALSIP,FRANCK ROBERTDAVID Report Released Date/Time: Sep 02, 2024 04:29 PM Reporting Lab: [facility] [address] [facility] [address] Performing Lab: [address] [address] GLYCOHEMOGLOBIN 5.6 4.4-5.6 Sep 03, 2024 07:05 AM [facility] PANEL 1 PLASMA Specimen Type: [...] Sep 02, 2024 04:29 PM Reporting Lab: [address] [address] Performing Lab: [address] [address] CREATININE 0.82 mg/dL 0.72-1.25 UREA NITROGEN 12 mg/dL 9-25 GLUCOSE 109 mg/dL H 74-100 SODIUM 129 mmol/L L 136-145 POTASSIUM 4.2 mmol/L 3.5-5.1 CHLORIDE 99 mmol/L 98-107 CO2 21 mmol/L L 22-29 CALCIUM 8.1 mg/dL L 8.4-10.2 ANION GAP 9 meq/L 3-19 eGFR (CKD-EPI) 90 Sep 03, 2024 07:05 AM [facility] OSMOLALITY SERUM Specimen Type: SERUM No comment entered. Ordering Provider: FRANCK TURNER Report Released Date/Time: Sep 02, 2024 04:44 PM Reporting Lab: [address] [address] Performing Lab: [address] [address] OSMOLALITY 271 mosm/kg L 280-300 Sep 02, 2024 08:15 PM [facility] GLUCOSE-HAND MONITOR CAPILLARY Specime n Type: CAPILLARY Comment: AAMIR DEXTER notified Test performed by: [id number] Meter #: [id number] Ordering Provider: FRANCK TURNER Report Released Date/Time: Sep 02, 2024 08:57 PM Reporting Lab: [address] [address] Performing Lab: [address] [address] GLUCOSE-HAND MONITOR 126 mg/dL H 71-99 Sep 02, 2024 06:10 PM [facility] MRSA SURVL NARES DNA NARES [...] Sep 02, 2024 05:12 PM Reporting Lab: [address] [address] Performing Lab: [address] [address] MRSA SURVL NARES DNA Negative Negative Sep 02, 2024 05:36 PM [facility] GLUCOSE-HAND MONITOR CAPILLARY Specime n Type: CAPILLARY Comment: Test performed by: [id number] Meter #: [id number] Ordering Provider: FRANCK TURNER Report Released Date/Time: Sep 02, 2024 05:53 PM Reporting Lab: [address] [address] Performing Lab: [address] [address] GLUCOSE-HAND MONITOR 127 mg/dL H 71-99 Aug 29, 2024 10:04 PM [facility] URINALYSIS WITH REFLEX TO CULTURE URINE Specimen Type: URINE Comment: ~For Test: URINALYSIS WITH REFLEX TO CULTURE ~REORDER Ordering Provider: FELISA COLE Report Released Date/Time: Aug 29, 2024 09:36 PM Reporting Lab: [address] [address] Performing Lab: [address] [address] URINE COLOR Yellow Colorless-Yellow APPEARANCE Clear Clear [...] /[LPF] 0-28 Aug 29, 2024 08:[facility] HIGH SENSITIVITY TROPONIN I PLASMA [...] Aug 29, 2024 07:55 PM Reporting Lab: [address] [address] Performing Lab: [address] [address] HIGH SENSITIVITY TROPONIN I 7 4-35 Aug 29, 2024 08:32 PM [facility] CBC/PLT BLOOD Specimen Type: BLOOD No comment entered. Ordering Provider: FELISA COLE Report Released Date/Time: Aug 29, 2024 07:55 PM Reporting Lab: [address] [address] Performing Lab: [address] [address] WBC 11.2 10*3/uL H 5.0-10.0 RBC 3.97 10*6/uL L 4.6-6.2 HGB 10.9 g/dL L 14.0-18.0 HCT 33.5 L 42.0-52.0 MCV 84.4 fL 80.0-94.0 MCH 27.5 pg 27.0-31.0 MCHC 32.5 g/dL 32.0-36.0 PLT 230 10*3/uL 150-450 MPV 10.2 fL 9.0-13.1 RDW 14.6 11.0-16.0 NRBC 0.0 0.0-0.0 Aug 29, 2024 08:32 PM [facility] PANEL 5 PLASMA Specimen Type: [...] Aug 29, 2024 07:55 PM Reporting Lab: [address] [address] Performing Lab: [address] [address] CREATININE 0.85 mg/dL 0.72-1.25 UREA NITROGEN 15 [...] 18 /min 95 % 0 [place] [facility] Sep 02, 2024 05:01 PM [place] [facility] Advance Directives: All historical and current [...] 08, 2024 ADVANCE DIRECTIVE DISCUSSION [place] [facility] Radiology Reports: +/- 30 days [...] BRAIN W & W/O: LUIS MANUEL PERDOMO [id number] -1945 M Exm Date: SEP 06, 2024@13:40 Req Phys: FRANCK TURNER Loc: 5-MED/TEL/09-06-2024@19:09 Img Loc: [facility] Service: [facility] SERVICE [place] [id number] (Case [id number] COMPLETE) MRI BRAIN W & W/O (MRI Detailed) CPT:79230 Contrast Media : Gadolinium Reason for Study: SEE CLINICAL HISTORY Pharmaceutical: GADOTERIDOL 279.3MG/ML 20ML INJ, 19ml Clinical History: MRI Screening (Required): IMPLANTED DEVICE DOCUMENTATION IMPLANTED DEVICE DOCUMENTATION NOT FOUND Does the have any Cardiac Implants? None Does the have any implanted stimulators? None Does the have cochlear implants? No Does the [place] have Cerebral aneurysm clip(s)? I don't know Does the [place] have any shrapnel? I don't know If [...] 06, 2024 Date Verified: SEP 06, 2024 Photonic Laboratory Technician E-Sig: Report: MRI brain without and with [...] Staff: ARCENIO LEYVA, Staff Radiologist Verified by hydrology technician for ARCENIO LEYVA /MRS LEYVAARCENIO-MALKA [facility] Sep 06, 2024 01:40 PM MRI C SPINE W & W/ O CONTRAST(FURTHER SEQUENCES): LUIS MANUEL PERDOMO [id number] -1945 M Exm Date: SEP 06, 2024@13:40 Req Phys: FRANCK TURNER Pat Loc: 5-MED/TEL/09-07-2024@06:42 [facility] Loc: [facility] Service: [facility] [place] [id number] (Case [id number] COMPLETE) MRI C SPINE W & W/O CONTRAST(FURT(MRI Detailed) CPT:62301 Contrast Media : Gadolinium Reason for Study: SEE CLINICAL HISTORY Pharmaceutical: GADOTERIDOL 279.3MG/ML 20ML INJ, 19ml Clinical History: STATUS OF PLAIN FILMS:Not performed (Provide justification for MR W/O prior plain films below.) MRI for MS MRI Screening (Required): IMPLANTED DEVICE DOCUMENTATION IMPLANTED DEVICE DOCUMENTATION NOT FOUND Does the [place] have any Cardiac Implants? None Does the [place] have any implanted stimulators? None Does the [place] have cochlear implants? No Does the have Cerebral aneurysm clip(s)? I don't know Does the [place] have any shrapnel? I don't know If yes, where in your body? Please list other implants not listed above: MRI table has a weight limit of 551 lbs. [place]'s Weight: *212 lb [96.16 kg] (09/04/2024 05:19) Is this patient claustrophobic?: No REASON FOR EXAM: MULTIPLE SCLEROSIS (indicate suspected or established) PERTINENT PATIENT HISTORY: MS c/f flare Risk factors for GADOLINIUM NEPHROGENIC SYSTEMIC SCLEROSIS: Report Status: Verified Date Reported: SEP 07, 2024 Date Verified: SEP 07, 2024 Photonic Laboratory Technician E-Sig: Report: EXAMINATION: MRI OF THE CERVICAL [...] Interpreting Staff: HUANG TAI, Radiologist Verified by hydrology technician for HUANG TAI /HUANG WHEATLEY-MALKA [facility] Sep 03, 2024 10:45 AM CHEST SINGLE(1) EW: LEANNELUIS MANUEL FINCH [id number] -1945 M Exm Date: SEP 03, 2024@10:45 Req Phys: FRANCK TURNER [facility] Loc: 5-MED/TEL/09-03-2024@10:56 Img Loc: [facility] RADIOLOGY Service: [place] [address] (Case [id number] COMPLETE)CHEST SINGLE(1) VIEW (RAD Detailed) CPT:79737 Proc Modifiers : PORTABLE EXAM Reason for Study: Eval volume status Clinical History: Report Status: Verified Date Reported: SEP 03, 2024 Date Verified: SEP 03, 2024 Photonic Laboratory Technician E-Sig: Report: EXAMINATION: SINGLE VIEW CHEST CLINICAL [...] Interpreting Staff: HUANG TAI, Radiologist Verified by hydrology technician for HUANG TAI /HUANG WHEATLEYSav [facility] Aug 29, 2024 08:[address] HEAD W/O CONT: LUIS MANUEL PERDOMO [id number] -1945 M Exm Date: AUG 29, 2024@20:28 Req Phys: FELISA COLE [facility] Loc: ED/4P-12A (Req'g Loc) Img Loc: CT SCAN Service: [place] [address] (Case [id number] COMPLETE) CT HEAD W/O CONT (CT Detailed) CPT:72232 Reason for Study: SEE CLINICAL HISTORY Clinical History: REASON FOR SEND OUT: ATTENDING PHYSICIAN NAME: New transient neurological s/s - suspected TIA HISTORY/REASON FOR EXAM: confusion Report Status: Verified Date Reported: AUG 29, 2024 Date Verified: AUG 29, 2024 Photonic Laboratory Technician E-Sig: Report: HISTORY confusion COMPARISON No prior [...] Staff: ABDIRAHMAN CROW Staff Physician Verified by hydrology technician for ABDIRAHMAN CROW /[facility]DIRAH[facility]ST. [facility] Pathology Reports: +/- 30 [...] Lab: [facility] [IA# [id number]] [address] [place] [id number] Accession [UID]: [id number] [[id number]] Received: Sep 03, 2024@14:02 Collection sample: URINE, [...] By: [facility] [CLIA# [id number]] [address] [place] [id number] MAGDY CALABRESE-MALKA [facility] Sep 02, 2024 06:00 PM LR MICROBIOLOGY RE PORT: Reporting Lab: [facility] [CLIA# [id number]] [address] [place] [id number] Accession [UID]: [id number] [[id number]] Received: Sep 02, 2024@18:07 Collection sample: BLD CULTURE BOTTLES Collection date: Sep 02, 2024 18:00 Site/Specimen: BLOOD Provider: FRANCK TURNER Comment on specimen: L HAND Test(s) ordered: CULTURE, BLOOD................ completed: Sep 08, 2024 * BACTERIOLOGY FINAL REPORT => Sep 08, 2024 08:25 TECH CODE: [id number] Bacteriology Remark(s): Blood culture status=NO GROWTH (unless notified otherwise) 09/03/2024 AEROBIC: NO GROWTH ANAEROBIC: NO GROWTH =--=--=--=--=--=--=--=--=--=-- =--=--=--=--=--=--=--=--=--=-- =--=--=--=--=--=-- Performing Laboratory: Bacteriology Report Performed By: [facility] [CLIA# [id number]] [address] [place], [place] [id number] MAGDY CALABRESE [facility] Aug 29, 2024 10:18 PM LR MICROBIOLOGY RE PORT: Reporting Lab: [facility] [CLIA# [id number]] [address] [place] [id number] Accession [UID]: [id number] [[id number]] Received: Aug 29, 2024@22:18 Collection sample: URINE, CLEAN CATCH Collection date: Aug 29, 2024 22:18 Site/Specimen: URINE Provider: FELISA COLE Test(s) ordered: CULTURE, URINE................ completed: Aug 31, 2024 09:51 * BACTERIOLOGY FINAL REPORT => Aug 31, 2024 09:51 TECH CODE: [id number] Bacteriology Remark(s): NO GROWTH 08/30/2024 <10,000 CFU/ML. 08/31/2024 =--=--=--=--=--=--=--=--=--=-- =--=--=--=--=--=--=--=--=--=-- =--=--=--=--=--=-- Performing Laboratory: Bacteriology Report Performed By: [facility] [CLIA# [id number]] [address] [place] [address] MAGDY CALABRESE-D [facility]
--- OUTSIDE RECORDS SUMMARY | 2024-09-03 01:07 | XMS_ITS ---
[place] DAILY HOSPITALIZATION DATA [facility] Encounter Summary Created on: September 22, 2024 LUIS MANUEL PERDOMO : 1945 Sex: Male Author Name [facility] Organization [facility] Address [address] [place] [address] Care Team Providers Care Wrapper Sorter Name Role Phone YULISSA HENDERSON Primary Care [...] PLAN F Mar 24, 2014 PLAN F [id number] LUIS MANUEL PERDOMO PATIENT [facility] [place] BLUECARD PREFERRED PROVIDER ORGANIZAT ION (PPO) [facility] SLE Sep 21, 2012 [id number] LUIS MANUEL PERDOMO PATIENT [facility] ([id number]) PRESCRIPT ION WL3A Sep 21, 2012 [id number] LUIS MANUEL PERDOMO PATIENT MEDICARE (WNR) MEDICARE (M) PART B Sep 21, 2012 PART B [id number] NOEMI PERDOMO PATIENT MEDICARE (WNR) MEDICARE (M) PART A Jan 22, 2011 PART A [id number] LEANNE, NOEMI PATIENT MEDICARE PART D (WNR) MEDICARE (M) PART D Mar 24, 2014 PART D [id number] LUIS MANUEL PERDOMO PATIENT Selected Encounter This section includes the information on record at NE for the Encounter. Date/Time Encounter Type Encounter Description Reason Pro vider Source Sep 03, 2024 05:07 AM Inpatient Visit DAILY HOSPITALIZATION DATA [facility] Encounter Template Text not used by NE Plan of Treatment: Future Appointments (+ 6 months) and Future Tests (+/- 45 days) The Plan of Treatment section includes future care activities for the [facility] This section includes future [...] 13, 2024 08:00 AM AMBULATORY - NONE [facility] Sep 30, 2024 01:30 PM AMBULATORY - SURGERY [facility] Active, Pending, and Scheduled Orders This section includes a listing of several types of active, pending, and scheduled orders, including clinic medications orders, diagnostic test orders, procedure orders and consult orders; where the start date of the order is 45 days before the date of the Encounter or 45 days after the date of theEncounter. The data comes from all [facility] facilities. Test Date/Time Test Type Test Details Facility Name Sep 13, 2024 01:33 PM Consult Order [facility] Cons Second Chef's Choice [facility] Lab Results: +/- 30 days of [...] Type Comment Sep 09, 2024 12:16 PM [facility] GLUCOSE-HAND MONITOR CAPILLARY Specimen Type: CAPILLARY Comment: Test performed by: [id number] Meter #: [id number] Ordering Provider: FRANCK TURNER Report Released Date/Time: Sep 09, 2024 12:33 PM Reporting Lab: [address] [address] Performing Lab: [address] [address] GLUCOSE-HAND MONITOR 116 mg/dL H Sep 09, 2024 06:07 AM [facility] GLUCOSE-HAND MONITOR CAPILLARY Specime n Type: CAPILLARY Comment: Test performed by: [id number] Meter #: [id number] Ordering Provider: FRANCK TURNER Report Released Date/Time: Sep 09, 2024 08:17 AM Reporting Lab: [address] [address] Performing Lab: [address] [address] GLUCOSE-HAND MONITOR 112 mg/dL H Sep 08, 2024 09:13 PM [facility] GLUCOSE-HAND MONITOR CAPILLARY Specime n Type: CAPILLARY Comment: Test performed by: [id number] Meter #: [id number] Ordering Provider: FRANCK TURNER Report Released Date/Time: Sep 08, 2024 09:31 PM Reporting Lab: [address] [address] Performing Lab: [address] [address] GLUCOSE-HAND MONITOR 107 mg/dL H Sep 08, 2024 03:49 PM [facility] GLUCOSE-HAND MONITOR CAPILLARY Specime n Type: CAPILLARY Comment: AAMIR RN notified Test performed by: [id number] Meter #: [id number] Ordering Provider: FRANCK TURNER Report Released Date/Time: Sep 08, 2024 04:33 PM Reporting Lab: [address] [address] Performing Lab: [address] [address] GLUCOSE-HAND MONITOR 162 mg/dL H Sep 08, 2024 11:43 AM [facility] GLUCOSE-HAND MONITOR CAPILLARY Specime n Type: CAPILLARY Comment: AAMIR RN notified Test performed by: [id number] Meter #: [id number] Ordering Provider: FRANCK TURNER Report Released Date/Time: Sep 08, 2024 12:03 PM Reporting Lab: [address] [address] Performing Lab: [address] [address] GLUCOSE-HAND MONITOR 133 mg/dL H Sep 08, 2024 06:13 AM [facility] GLUCOSE-HAND MONITOR CAPILLARY Specime n Type: CAPILLARY Comment: Test performed by: [id number] Meter #: [id number] Ordering Provider: FRANCK TURNER Report Released Date/Time: Sep 08, 2024 06:46 AM Reporting Lab: [address] [address] Performing Lab: [address] [address] GLUCOSE-HAND MONITOR 104 mg/dL H Sep 07, 2024 07:59 PM [facility] GLUCOSE-HAND MONITOR CAPILLARY Specime n Type: CAPILLARY Comment: Test performed by: [id number] Meter #: [id number] Ordering Provider: FRANCK TURNER Report Released Date/Time: Sep 07, 2024 09:05 PM Reporting Lab: [address] [address] Performing Lab: [address] [address] GLUCOSE-HAND MONITOR 107 mg/dL H Sep 07, 2024 04:39 PM [facility] GLUCOSE-HAND MONITOR CAPILLARY Specime n Type: CAPILLARY Comment: Test performed by: [id number] Meter #: [id number] Ordering Provider: FRANCK TURNER Report Released Date/Time: Sep 07, 2024 05:09 PM Reporting Lab: [address] [address] Performing Lab: [address] [address] GLUCOSE-HAND MONITOR 105 mg/dL H Sep 07, 2024 11:41 AM [facility] GLUCOSE-HAND MONITOR CAPILLARY Specime n Type: CAPILLARY Comment: Test performed by: [id number] Meter #: [id number] Ordering Provider: FRANCK TURNER Report Released Date/Time: Sep 07, 2024 12:41 PM Reporting Lab: [address] [address] Performing Lab: [address] [address] GLUCOSE-HAND MONITOR 144 mg/dL H Sep 07, 2024 05:56 AM [facility] GLUCOSE-HAND MONITOR CAPILLARY Specime n Type: CAPILLARY Comment: Test performed by: [id number] Meter #: [id number] Ordering Provider: FRANCK TURNER Report Released Date/Time: Sep 07, 2024 06:31 AM Reporting Lab: [address] [address] Performing Lab: [address] [address] GLUCOSE-HAND MONITOR 96 mg/dL Sep 06, 2024 08:10 PM [facility] GLUCOSE-HAND MONITOR CAPILLARY Specime n Type: CAPILLARY Comment: Test performed by: [id number] Meter #: [id number] Ordering Provider: FRANCK TURNER Report Released Date/Time: Sep 06, 2024 08:52 PM Reporting Lab: [address] [address] Performing Lab: [address] [address] GLUCOSE-HAND MONITOR 124 mg/dL H Sep 06, 2024 04:27 PM [facility] GLUCOSE-HAND MONITOR CAPILLARY Specime n Type: CAPILLARY Comment: Test performed by: [id number] Meter #: [id number] Ordering Provider: FRANCK TURNER Report Released Date/Time: Sep 06, 2024 05:15 PM Reporting Lab: [address] [address] Performing Lab: [address] [address] GLUCOSE-HAND MONITOR 107 mg/dL H Sep 06, 2024 12:12 PM [facility] GLUCOSE-HAND MONITOR CAPILLARY Specime n Type: CAPILLARY Comment: Test performed by: [id number] Meter #: [id number] Ordering Provider: FRANCK TURNER Report Released Date/Time: Sep 06, 2024 12:29 PM Reporting Lab: [address] [address] Performing Lab: [address] [address] GLUCOSE-HAND MONITOR 181 mg/dL H -Sep 06, 2024 06:13 AM [facility] GLUCOSE-HAND MONITOR CAPILLARY Specime n Type: CAPILLARY Comment: Test performed by: [id number] Meter #: [id number] Ordering Provider: FRANCK TURNER Report Released Date/Time: Sep 06, 2024 06:36 AM Reporting Lab: [address] [address] Performing Lab: [address] [address] GLUCOSE-HAND MONITOR 102 mg/dL H Sep 05, 2024 08:47 PM [facility] GLUCOSE-HAND MONITOR CAPILLARY Specime n Type: CAPILLARY Comment: Test performed by: [id number] Meter #: [id number] Ordering Provider: FRANCK TURNER Report Released Date/Time: Sep 06, 2024 02:13 AM Reporting Lab: [address] [address] Performing Lab: [address] [address] GLUCOSE-HAND MONITOR 103 mg/dL H Sep 05, 2024 04:40 PM [facility] GLUCOSE-HAND MONITOR CAPILLARY Specime n Type: CAPILLARY Comment: AAMIR RN notified Test performed by: [id number] Meter #: [id number] Ordering Provider: FRANCK TURNER Report Released Date/Time: Sep 05, 2024 05:11 PM Reporting Lab: [address] [address] Performing Lab: [address] [address] GLUCOSE-HAND MONITOR 113 mg/dL H Sep 05, 2024 12:06 PM [facility] GLUCOSE-HAND MONITOR CAPILLARY Specime n Type: CAPILLARY Comment: Test performed by: [id number] Meter #: [id number] Ordering Provider: FRANCK TURNER Report Released Date/Time: Sep 05, 2024 12:23 PM Reporting Lab: [address] [address] Performing Lab: [address] [address] GLUCOSE-HAND MONITOR 115 mg/dL H Sep 05, 2024 06:26 AM [facility] GLUCOSE-HAND MONITOR CAPILLARY Specime n Type: CAPILLARY Comment: AAMIR Correction Dose Test performed by: [id number] Meter #: [id number] Ordering Provider: FRANCK TURNER Report Released Date/Time: Sep 05, 2024 06:43 AM Reporting Lab: [address] [address] Performing Lab: [address] [address] GLUCOSE-HAND MONITOR 111 mg/dL H Sep 04, 2024 08:59 PM [facility] GLUCOSE-HAND MONITOR CAPILLARY Specime n Type: CAPILLARY Comment: AAMIR RN notified Test performed by: [id number] Meter #: [id number] Ordering Provider: FRANCK TURNER Report Released Date/Time: Sep 04, 2024 09:36 PM Reporting Lab: [address] [address] Performing Lab: [address] [address] GLUCOSE-HAND MONITOR 123 mg/dL H Sep 04, 2024 04:41 PM [facility] GLUCOSE-HAND MONITOR CAPILLARY Specime n Type: CAPILLARY Comment: AAMIR RN notified Test performed by: [id number] Meter #: [id number] Ordering Provider: FRANCK TURNER Report Released Date/Time: Sep 04, 2024 05:03 PM Reporting Lab: [address] [address] Performing Lab: [address] [address] GLUCOSE-HAND MONITOR 118 mg/dL H Sep 04, 2024 12:36 PM [facility] GLUCOSE-HAND MONITOR CAPILLARY Specime n Type: CAPILLARY Comment: AAMIR RN notified Test performed by: [id number] Meter #: [id number] Ordering Provider: FRANCK TURNER Report Released Date/Time: Sep 04, 2024 12:53 PM Reporting Lab: [address] [address] Performing Lab: [place] [address] GLUCOSE-HAND MONITOR 129 mg/dL H 71-99 Sep 04, 2024 12:03 PM [facility] RESPIRATORY VIRUS PANEL (BIOFIRE) NASOPHARYN X Specimen Type: NASOPHARYNX Comment: ~For Test: RESPIRATORY VIRUS PANEL (BIOFIRE) ~ORDER READ BACK TO: FRANCK TURNER 09/04/24@11:30 Ordering Provider: FRANCK TURNER Report Released Date/Time: Sep 04, 2024 11:33 AM Reporting Lab: [place] [phone] Performing Lab: [place] [phone] ADENOVIRUS (BIOFIRE) Not Detected -Not D etected [...] -Not Detected Sep 04, 2024 06:55 AM [facility] MAGNESIUM PLASMA Specimen Type: PLASM A [...] 03, 2024 11:10 AM Reporting Lab: [facility] [address] [facility] [address] Performing Lab: [place] [address] [facility] [address] MAGNESIUM 1.8 mg/dL 1.6-2.6 Sep 04, 2024 06:55 AM [facility] PANEL 1 PLASMA Specimen Type: PLASM [...] Sep 03, 2024 11:10 AM Reporting Lab: [id number] [address] Performing Lab: [address] CREATININE 0.75 mg/dL 0.72-1.25 UREA NITROGEN 13 mg/dL 9-25 GLUCOSE 105 mg/dL H 74-100 SODIUM 128 mmol/L L 136-145 POTASSIUM 3.9 mmol/L 3.5-5.1 CHLORIDE 99 mmol/L 98-107 CO2 21 mmol/L L 22-29 CALCIUM 8.0 mg/dL L 8.4-10.2 ANION GAP 8 meq/L 3-19 eGFR (CKD-EPI) >90 Sep 04, 2024 06:02 AM [facility] GLUCOSE-HAND MONITOR CAPILLARY Specime n Type: CAPILLARY Comment: Test performed by: [id number] Meter #: [id number] Ordering Provider: FRANCK TURNER Report Released Date/Time: Sep 04, 2024 06:28 AM Reporting Lab: [address] Performing Lab: [address] GLUCOSE-HAND MONITOR 114 mg/dL H 71-99 Sep 03, 2024 05:19 PM [facility] GLUCOSE-HAND MONITOR CAPILLARY Specime n Type: CAPILLARY Comment: Test performed by: [id number] Meter #: [id number] Ordering Provider: FRANCK TURNER Report Released Date/Time: Sep 03, 2024 05:37 PM Reporting Lab: [address] Performing Lab: [address] [address] GLUCOSE-HAND MONITOR 124 mg/dL H 71-99 Sep 03, 2024 04:41 PM [facility] GLUCOSE-HAND MONITOR CAPILLARY Specime n Type: CAPILLARY Comment: Test performed by: [id number] Meter #: [id number] Ordering Provider: FRANCK TURNER Report Released Date/Time: Sep 03, 2024 06:09 PM Reporting Lab: [address] [address] Performing Lab: [address] [address] GLUCOSE-HAND MONITOR 112 mg/dL H 71-99 Sep 03, 2024 01:35 PM [facility] URINE LYTES URINE Specimen Type : URINE Comment: ~Altered mental status with no identifiable cause Ordering Provider: FRANCK TURNER Report Released Date/Time: Sep 02, 2024 04:44 PM Reporting Lab: [address] [address] Performing Lab: [address] [address] SODIUM 130 mmol/L POTASSIUM 47.6 mmol/L CHLORIDE 137 mmol/L Sep 03, 2024 01:35 PM [facility] CREATININE URINE Specimen Type: URINE Comment: ~Altered mental status with no identifiable cause Ordering Provider: FRANCK TURNER Report Released Date/Time: Sep 02, 2024 04:44 PM Reporting Lab: [address] [address] Performing Lab: [address] [address] CREATININE 150.9 mg/dL Sep 03, 2024 01:35 PM [facility] UREA NITROGEN URINE Specimen Type : URINE Comment: ~Altered mental status with no identifiable cause Ordering Provider: FRANCK TURNER Report Released Date/Time: Sep 02, 2024 04:44 PM Reporting Lab: [address] [address] Performing Lab: [address] [address] UREA NITROGEN 320 mg/dL Sep 03, 2024 01:35 PM [facility] OSMOLALITY URINE Specimen Type: URINE Comment: ~Altered mental status with no identifiable cause Ordering Provider: FRANCK TURNER Report Released Date/Time: Sep 02, 2024 04:44 PM Reporting Lab: [address] [address] Performing Lab: [address] [address] OSMOLALITY 522 mosm/kg 38-1400 Sep 03, 2024 01:35 PM [facility] URINALYSIS WITH REFLEX TO CULTURE URINE Specimen Type: URINE Comment: ~Altered mental status with no identifiable cause Ordering Provider: FRANCK TURNER Report Released Date/Time: Sep 02, 2024 04:44 PM Reporting Lab: [address] [address] Performing Lab: [address] [address] URINE COLOR Yellow Colorless-Yellow APPEARANCE CLOUDY H [...] H 0-28 Sep 03, 2024 11:58 AM [facility] GLUCOSE-HAND MONITOR CAPILLARY Specime n Type: CAPILLARY Comment: AAMIR RN notified Test performed by: [id number] Meter #: [id number] Ordering Provider: FRANCK TURNER Report Released Date/Time: Sep 03, 2024 12:15 PM Reporting Lab: [address] [address] Performing Lab: [address] [address] GLUCOSE-HAND MONITOR 135 mg/dL H Sep 03, 2024 07:09 AM [facility] GLUCOSE-HAND MONITOR CAPILLARY Specime n Type: CAPILLARY Comment: Test performed by: [id number] Meter #: [id number] Ordering Provider: FRANCK TURNER Report Released Date/Time: Sep 03, 2024 07:26 AM Reporting Lab: [address] [address] Performing Lab: [address] [address] GLUCOSE-HAND MONITOR 120 mg/dL H -Sep 03, 2024 07:05 AM [facility] PANEL 1 PLASMA Specimen Type: PLASM [...] Sep 02, 2024 04:29 PM Reporting Lab: [address] [address] Performing Lab: [address] [address] CREATININE 0.82 mg/dL 0.72-1.25 UREA NITROGEN 12 mg/dL 9-25 GLUCOSE 109 mg/dL H 74-100 SODIUM 129 mmol/L L 136-145 POTASSIUM 4.2 mmol/L 3.5-5.1 CHLORIDE 99 mmol/L 98-107 CO2 21 mmol/L L 22-29 CALCIUM 8.1 mg/dL L 8.4-10.2 ANION GAP 9 meq/L 3-19 eGFR (CKD-EPI) 90 Sep 03, 2024 07:05 AM [facility] CBC/PLT BLOOD Specimen Type: BLOOD No comment entered. Ordering Provider: FRANCK TURNER Report Released Date/Time: Sep 02, 2024 04:29 PM Reporting Lab: [address] [address] Performing Lab: [address] [address] WBC 6.9 10*3/uL 5.0-10.0 RBC 3.48 10*6/uL L 4.6-6.2 HGB 9.5 g/dL L 14.0-18.0 HCT 29.1 L 42.0-52.0 MCV 83.6 fL 80.0-94.0 MCH 27.3 pg 27.0-31.0 MCHC 32.6 g/dL 32.0-36.0 PLT 258 10*3/uL 150-450 MPV 10.3 fL 9.0-13.1 RDW 14.8 11.0-16.0 NRBC 0.0 0.0-0.0 Sep 03, 2024 07:05 AM [facility] MAGNESIUM PLASMA Specimen Type: PLASM A [...] Sep 02, 2024 04:29 PM Reporting Lab: [address] [address] Performing Lab: [address] [address] MAGNESIUM 1.7 mg/dL 1.6-2.6 Sep 03, 2024 07:05 AM [facility] GLYCOHEMOGLOBIN BLOOD Specimen Type: BLOOD Comment: Prediabetes: 5.7%-6.4% Diabetes: >= 6.5% [place]-DoD guidelines for A1c interpretation: Glycemic control targets are based on Shared Decision Making between clinicians and patients. Criteria used to establish an A1c target recommendation can be found at https://www.[place].gov/qualityandpatientsafety/ and include the use of result accuracy [...] 8.73 and 9.27. Ref: https://ngsp.org/CAPdata.asp. The in-house [employer] D-100 analyzer has a historical CV <= 2%. Contact the laboratory for further performance characteristics of this assay. Ordering Provider: FRANCK TURNER Report Released Date/Time: Sep 02, 2024 04:29 PM Reporting Lab: [address] [address] Performing Lab: [place] [phone] GLYCOHEMOGLOBIN 5.6 4.4-5.6 Sep 03, 2024 07:05 AM [facility] OSMOLALITY SERUM Specimen Type: SERUM No comment entered. Ordering Provider: FRANCK TURNER Report Released Date/Time: Sep 02, 2024 04:44 PM Reporting Lab: [address] [address] Performing Lab: [address] [address] OSMOLALITY 271 mosm/kg L 280-300 Sep 02, 2024 08:15 PM [facility] GLUCOSE-HAND MONITOR CAPILLARY Specime n Type: CAPILLARY Comment: AAMIR DEXTER notified Test performed by: [id number] Meter #: [id number] Ordering Provider: FRANCK TURNER Report Released Date/Time: Sep 02, 2024 08:57 PM Reporting Lab: [address] [address] Performing Lab: [address] [address] GLUCOSE-HAND MONITOR 126 mg/dL H 71-99 Sep 02, 2024 06:10 PM [facility] MRSA SURVL NARES DNA NARES Specime [...] Sep 02, 2024 05:12 PM Reporting Lab: [address] [address] Performing Lab: [address] [address] MRSA SURVL NARES DNA Negative Negative Sep 02, 2024 05:36 PM [facility] GLUCOSE-HAND MONITOR CAPILLARY Specime n Type: CAPILLARY Comment: Test performed by: [id number] Meter #: [id number] Ordering Provider: FRANCK TURNER Report Released Date/Time: Sep 02, 2024 05:53 PM Reporting Lab: [address] [address] Performing Lab: [address] [address] GLUCOSE-HAND MONITOR 127 mg/dL H 71-99 Aug 29, 2024 10:04 PM [facility] URINALYSIS WITH REFLEX TO CULTURE URINE Specimen Type: URINE Comment: ~For Test: URINALYSIS WITH REFLEX TO CULTURE ~REORDER Ordering Provider: FELISA COLE Report Released Date/Time: Aug 29, 2024 09:36 PM Reporting Lab: [address] [address] Performing Lab: [address] [address] URINE COLOR Yellow Colorless-Yellow APPEARANCE Clear Clear [...] /[LPF] 0-28 Aug 29, 2024 08:32 PM [facility] HIGH SENSITIVITY TROPONIN I PLASMA Specimen [...] Aug 29, 2024 07:55 PM Reporting Lab: [address] [address] Performing Lab: [address] [address] HIGH SENSITIVITY TROPONIN I 7 4-35 Aug 29, 2024 08:32 PM [facility] CBC/PLT BLOOD Specimen Type: BLOOD No comment entered. Ordering Provider: FELISA COLE Report Released Date/Time: Aug 29, 2024 07:55 PM Reporting Lab: [address] [address] Performing Lab: [address] [address] WBC 11.2 10*3/uL H 5.0-10.0 RBC 3.97 10*6/uL L 4.6-6.2 HGB 10.9 g/dL L 14.0-18.0 HCT 33.5 L 42.0-52.0 MCV 84.4 fL 80.0-94.0 MCH 27.5 pg 27.0-31.0 MCHC 32.5 g/dL 32.0-36.0 PLT 230 10*3/uL 150-450 MPV 10.2 fL 9.0-13.1 RDW 14.6 11.0-16.0 NRBC 0.0 0.0-0.0 Aug 29, 2024 08:32 PM [facility] 5 PLASMA Specimen Type: PLASM [...] Aug 29, 2024 07:55 PM Reporting Lab: [address] [address] Performing Lab: [address] [address] CREATININE 0.85 mg/dL 0.72-1.25 UREA NITROGEN 15 [...] Height Weight Body Mass Index Source Sep 03, 2024 08:29 PM 97.6 F 86 /min 137/75 mm[Hg] 18 /min 93 % 0 [place] [facility] Sep 03, 2024 04:38 PM 98.5 F 81 /min 129/76 mm[Hg] 15 /min 94 % 0 [facility] Sep 03, 2024 09:07 AM 98.0 F 94 /min 121/71 mm[Hg] 15 /min 90 % 0 [place] [facility] Sep 03, 2024 06:13 AM 217.5 lb 32 [place] [facility] Sep 03, 2024 04:41 AM 98.9 F 92 /min 124/71 mm[Hg] 20 /min 91 % 0 [place] [facility] Advance Directives: All historical and current [...] 08, 2024 ADVANCE DIRECTIVE DISCUSSION [facility] Radiology Reports: +/- 30 days of [...] BRAIN W & W/O: LUIS MANUEL PERDOMO [id number] -1945 M Exm Date: SEP 06, 2024@13:40 Req Phys: FRANCK TURNERSav [facility] With [facility] Loc: 5-MED/TEL/09-06-2024@19:09 Img Loc: [facility] Service: [place] [address] (Case [id number] COMPLETE) MRI BRAIN W & W/O (MRI Detailed) CPT:20964 Contrast Media : Gadolinium Reason for Study: SEE CLINICAL HISTORY Pharmaceutical: GADOTERIDOL 279.3MG/ML 20ML INJ, 19ml Clinical History: MRI Screening (Required): IMPLANTED DEVICE DOCUMENTATION IMPLANTED DEVICE DOCUMENTATION NOT FOUND Does the have any Cardiac Implants? None Does the have any implanted stimulators? None Does the [place] have cochlear implants? No Does the [place] have Cerebral aneurysm clip(s)? I don't know Does the have any shrapnel? I don't know If yes, where in your body? Please list other implants not listed above: MRI table has a weight limit of 551 lbs. [place]'s Weight: *212 lb [96.16 kg] (09/04/2024 05:19) Is this patient claustrophobic?: No REASON FOR EXAM:MULTIPLE SCLEROSIS (indicate suspected or established) PERTINENT PATIENT HISTORY: MS c/f for flare Risk factors for GADOLINIUM NEPHROGENIC SYSTEMIC SCLEROSIS: Report Status: Verified Date Reported: SEP 06, 2024 Date Verified: SEP 06, 2024 Tnt Line Supervisor E-Sig: Report: MRI brain without and with [...] Staff: ARCENIO LEYVA, Staff Radiologist Verified by switchboard operator helper for ARCENIO LEYVA /ARCENIO AVILA [facility] Sep 06, 2024 01:40 PM MRI C SPINE W & W/ O CONTRAST(FURTHER SEQUENCES): LUIS MANUEL PERDOMO [id number] -1945 M Exm Date: SEP 06, 2024@13:40 Req Phys: AZARFRANCK WHEELER Pat Loc: 5-MED/TEL/09-07-2024@06:42 Img Loc: [facility] Service: [place] [address] (Case [id number] COMPLETE) MRI C SPINE W & W/O CONTRAST(FURT(MRI Detailed) CPT:83303 Contrast Media : Gadolinium Reason for Study: SEE CLINICAL HISTORY Pharmaceutical: GADOTERIDOL 279.3MG/ML 20ML INJ, 19ml Clinical History: STATUS OF PLAIN FILMS:Not performed (Provide justification for MR W/O prior plain films below.) MRI for MS MRI Screening (Required): IMPLANTED DEVICE DOCUMENTATION IMPLANTED DEVICE DOCUMENTATION NOT FOUND Does the have any Cardiac Implants? None Does the [place] have any implanted stimulators? None Does the have cochlear implants? No Does the [place] have Cerebral aneurysm clip(s)? I don't know [...] 07, 2024 Date Verified: SEP 07, 2024 Tnt Line Supervisor E-Sig: Report: EXAMINATION: MRI OF THE CERVICAL [...] Interpreting Staff: HUANG TAI, Radiologist Verified by switchboard operator helper for HUANG TAI /HUANG WHEATLEY-Sav [facility] Sep 03, 2024 10:45 AM CHEST SINGLE(1) EW: LUIS MANUEL PERDOMO [id number] -1945 M Ex Date: SEP 03, 2024@10:45 Req Phys: FRANCK TURNER Pat Loc: 5-MED/TEL/09-03-2024@10:56 Img Loc: [facility] Service: [place] [address] (Case [id number] COMPLETE)CHEST SINGLE(1) VIEW (RAD Detailed) CPT:81853 Proc Modifiers : PORTABLE EXAM Reason for Study: Eval volume status Clinical History: Report Status: Verified Date Reported: SEP 03, 2024 Date Verified: SEP 03, 2024 Tnt Line Supervisor E-Sig: Report: EXAMINATION: SINGLE VIEW CHEST CLINICAL [...] Interpreting Staff: HUANG TAI, Radiologist Verified by switchboard operator helper for HUANG TAI /HUANG WHEATLEY-[facility] Aug 29, 2024 08:[address] HEAD W/O CONT: LUIS MANUEL PERDOMO [id number] -1945 M Exm Date: AUG 29, 2024@20:28 Req Phys: FELISA COLE Loc: ED/4P-12A (Req'g Loc) Img Loc: CT SCAN Service: [place] [address] (Case [id number] COMPLETE) CT HEAD W/O CONT (CT Detailed) CPT:06039 Reason for Study: SEE CLINICAL HISTORY Clinical History: REASON FOR SEND OUT: ATTENDING PHYSICIAN NAME: New transient neurological s/s - suspected TIA HISTORY/REASON FOR EXAM: confusion Report Status: Verified Date Reported: AUG 29, 2024 Date Verified: AUG 29, 2024 Tnt Line Supervisor E-Sig: Report: HISTORY confusion COMPARISON No [...] Staff: ABDIRAHMAN CROW, Staff Physician Verified by switchboard operator helper for ABDIRAHMAN CROW /GUERITA CROW,ABDIRAHMAN [facility] Pathology Reports: +/- 30 days of [...] PM LR MICROBIOLOGY RE PORT: Reporting Lab: [facility] [CLIA# [id number]] [address] [place] [id number] Accession [UID]: [id number] [[id number]] Received: Sep 03, 2024@14:02 Collection sample: URINE, [...] =--=--=--=--=--=-- Performing Laboratory: Bacteriology Report Performed By: [facility] [CLIA# [id number]] [address] [place], [place] [id number] [facility] Sep 02, 2024 06:00 PM LR MICROBIOLOGY RE PORT: Reporting Lab: [facility] [IA# [id number]] [address] [place], [place] [address] Accession [UID]: [id number] [[id number]] Received: Sep 02, 2024@18:07 Collection sample: BLD CULTURE BOTTLES Collection date: Sep 02, 2024 18:00 Site/Specimen: BLOOD Provider: FRANCK TURNER Comment on specimen: L HAND Test(s) ordered: CULTURE, BLOOD................ completed: Sep 08, 2024 * BACTERIOLOGY FINAL REPORT => Sep 08, 2024 08:25 TECH CODE: [id number] Bacteriology Remark(s): Blood culture status=NO GROWTH (unless notified otherwise) 09/03/2024 AEROBIC: NO GROWTH ANAEROBIC: NO GROWTH =--=--=--=--=--=--=--=--=--=-- =--=--=--=--=--=--=--=--=--=-- =--=--=--=--=--=-- Performing Laboratory: Bacteriology Report Performed By: [facility] [CLIA# [id number]] [address] [place], [place] [id number] MAGDY [facility]ABRESE [facility] Aug 29, 2024 10:18 PM LR MICROBIOLOGY RE PORT: Reporting Lab: [facility] [CLIA# [id number]] [address] [place], [place] [address] Accession [UID]: [id number] [[id number]] Received: Aug 29, 2024@22:18 Collection sample: URINE, CLEAN CATCH Collection date: Aug 29, 2024 22:18 Site/Specimen: URINE Provider: FELISA COLE Test(s) ordered: CULTURE, URINE................ completed: Aug 31, 2024 09:51 * BACTERIOLOGY FINAL REPORT => Aug 31, 2024 09:51 TECH CODE: [id number] Bacteriology Remark(s): NO GROWTH 08/30/2024 <10,000 CFU/ML. 08/31/2024 =--=--=--=--=--=--=--=--=--=-- =--=--=--=--=--=--=--=--=--=-- =--=--=--=--=--=-- Performing Laboratory: Bacteriology Report Performed By: [facility] [CLIA# [id number]] [address] [place] [address] MAGDY CALABRESE-M[facility]KA [facility]
--- OUTSIDE RECORDS SUMMARY | 2024-09-03 01:26 | XMS_ITS ---
[place] DAILY HOSPITALIZATION DATA [facility] Encounter Summary Created on: September 22, 2024 LUIS MANUEL PERDOMO : 1945 Sex: Male Author Name [facility] Organization [facility] Address [address] [place] [address] Care Team Providers Care Dealer Card Room Name Role Phone YULISSA HENDERSON Primary Care [...] PLAN F Mar 24, 2014 PLAN F [id number] LUIS MANUEL PERDOMO PATIENT [facility] [place] BLUEC[facility] PREFERRED PROVIDER ORGANIZAT ION (PPO) [facility] SLE Sep 21, 2012 [id number] LUIS MANUEL PERDOMO PATIENT [employer] ([id number]) PRESCRIPT ION WL3A Sep 21, 2012 [id number] LUIS MANUEL PERDOMO PATIENT MEDICARE (WNR) MEDICARE (M) PART B Sep 21, 2012 PART B [id number] NOEMI PERDOMO PATIENT MEDICARE (WNR) MEDICARE (M) PART A Jan 22, 2011 PART A [id number] LEANNE, NOEMI PATIENT MEDICARE PART D (WNR) MEDICARE (M) PART D Mar 24, 2014 PART D [id number] LUIS MANUEL PERDOMO PATIENT Selected Encounter This section includes the information on record at [place] for the Encounter. Date/Time Encounter Type Encounter Description Reason Pro vider Source Sep 03, 2024 05:26 AM Inpatient Visit DAILY HOSPITALIZATION DATA [facility] Encounter Template Text not used by [place] Plan of Treatment: Future Appointments (+ 6 months) and Future Tests (+/- 45 days) The Plan of Treatment section includes future care activities for the patient from all [place] [facility]. This section includes future [...] 13, 2024 08:00 AM AMBULATORY - NONE [facility] Sep 30, 2024 01:30 PM AMBULATORY - SURGERY [place] [facility] Active, Pending, and Scheduled Orders This section includes a listing of several types of active, pending, and scheduled orders, including clinic medications orders, diagnostic test orders, procedure orders and consult orders; where the start date of the order is 45 days before the date of the Encounter or 45 days after the date of theEncounter. The data comes from all [facility] facilities. Test Date/Time Test Type Test Details Facility Name Sep 13, 2024 01:33 PM Consult Order [facility] Cons Licensed Nuclear Operator's Choice [facility] Lab Results: +/- [...] Type Comment Sep 09, 2024 12:16 PM [facility] GLUCOSE-HAND MONITOR CAPILLARY Specimen Type: CAPILLARY Comment: Test performed by: [id number] Meter #: [id number] Ordering Provider: FRANCK TURNER Report Released Date/Time: Sep 09, 2024 12:33 PM Reporting Lab: [address] [address] Performing Lab: [address] [address] GLUCOSE-HAND MONITOR 116 mg/dL H Sep 09, 2024 06:07 AM [facility] GLUCOSE-HAND MONITOR CAPILLARY Specime n Type: CAPILLARY Comment: Test performed by: [id number] Meter #: [id number] Ordering Provider: FRANCK TURNER Report Released Date/Time: Sep 09, 2024 08:17 AM Reporting Lab: [address] [address] Performing Lab: [address] [address] GLUCOSE-HAND MONITOR 112 mg/dL H Sep 08, 2024 09:13 PM [facility] GLUCOSE-HAND MONITOR CAPILLARY Specime n Type: CAPILLARY Comment: Test performed by: [id number] Meter #: [id number] Ordering Provider: FRANCK TURNER Report Released Date/Time: Sep 08, 2024 09:31 PM Reporting Lab: [address] [address] Performing Lab: [address] [address] GLUCOSE-HAND MONITOR 107 mg/dL H Sep 08, 2024 03:49 PM [facility] GLUCOSE-HAND MONITOR CAPILLARY Specime n Type: CAPILLARY Comment: AAMIR RN notified Test performed by: [id number] Meter #: [id number] Ordering Provider: FRANCK TURNER Report Released Date/Time: Sep 08, 2024 04:33 PM Reporting Lab: [address] [address] Performing Lab: [address] [address] GLUCOSE-HAND MONITOR 162 mg/dL H Sep 08, 2024 11:43 AM [facility] GLUCOSE-HAND MONITOR CAPILLARY Specime n Type: CAPILLARY Comment: AAMIR RN notified Test performed by: [id number] Meter #: [id number] Ordering Provider: FRANCK TURNER Report Released Date/Time: Sep 08, 2024 12:03 PM Reporting Lab: [address] [address] Performing Lab: [address] [address] GLUCOSE-HAND MONITOR 133 mg/dL H Sep 08, 2024 06:13 AM [facility] GLUCOSE-HAND MONITOR CAPILLARY Specime n Type: CAPILLARY Comment: Test performed by: [id number] Meter #: [id number] Ordering Provider: FRANCK TURNER Report Released Date/Time: Sep 08, 2024 06:46 AM Reporting Lab: [address] [address] Performing Lab: [address] [address] GLUCOSE-HAND MONITOR 104 mg/dL H Sep 07, 2024 07:59 PM [facility] GLUCOSE-HAND MONITOR CAPILLARY Specime n Type: CAPILLARY Comment: Test performed by: [id number] Meter #: [id number] Ordering Provider: FRANCK TURNER Report Released Date/Time: Sep 07, 2024 09:05 PM Reporting Lab: [address] [address] Performing Lab: [address] [address] GLUCOSE-HAND MONITOR 107 mg/dL H Sep 07, 2024 04:39 PM [facility] GLUCOSE-HAND MONITOR CAPILLARY Specime n Type: CAPILLARY Comment: Test performed by: [id number] Meter #: [id number] Ordering Provider: FRANCK TURNER Report Released Date/Time: Sep 07, 2024 05:09 PM Reporting Lab: [address] [address] Performing Lab: [address] [address] GLUCOSE-HAND MONITOR 105 mg/dL H Sep 07, 2024 11:41 AM [facility] GLUCOSE-HAND MONITOR CAPILLARY Specime n Type: CAPILLARY Comment: Test performed by: [id number] Meter #: [id number] Ordering Provider: FRANCK TURNER Report Released Date/Time: Sep 07, 2024 12:41 PM Reporting Lab: [address] [address] Performing Lab: [address] [address] GLUCOSE-HAND MONITOR 144 mg/dL H Sep 07, 2024 05:56 AM [facility] GLUCOSE-HAND MONITOR CAPILLARY Specime n Type: CAPILLARY Comment: Test performed by: [id number] Meter #: [id number] Ordering Provider: FRANCK TURNER Report Released Date/Time: Sep 07, 2024 06:31 AM Reporting Lab: [address] [address] Performing Lab: [address] [address] GLUCOSE-HAND MONITOR 96 mg/dL Sep 06, 2024 08:10 PM [facility] GLUCOSE-HAND MONITOR CAPILLARY Specime n Type: CAPILLARY Comment: Test performed by: [id number] Meter #: [id number] Ordering Provider: FRANCK TURNER Report Released Date/Time: Sep 06, 2024 08:52 PM Reporting Lab: [address] [address] Performing Lab: [address] [address] GLUCOSE-HAND MONITOR 124 mg/dL H Sep 06, 2024 04:27 PM [facility] GLUCOSE-HAND MONITOR CAPILLARY Specime n Type: CAPILLARY Comment: Test performed by: [id number] Meter #: [id number] Ordering Provider: FRANCK TURNER Report Released Date/Time: Sep 06, 2024 05:15 PM Reporting Lab: [address] [address] Performing Lab: [address] [address] GLUCOSE-HAND MONITOR 107 mg/dL H Sep 06, 2024 12:12 PM [facility] GLUCOSE-HAND MONITOR CAPILLARY Specime n Type: CAPILLARY Comment: Test performed by: [id number] Meter #: [id number] Ordering Provider: FRANCK TURNER Report Released Date/Time: Sep 06, 2024 12:29 PM Reporting Lab: [address] [address] Performing Lab: [address] [address] GLUCOSE-HAND MONITOR 181 mg/dL H -Sep 06, 2024 06:13 AM [facility] GLUCOSE-HAND MONITOR CAPILLARY Specime n Type: CAPILLARY Comment: Test performed by: [id number] Meter #: [id number] Ordering Provider: FRANCK TURNER Report Released Date/Time: Sep 06, 2024 06:36 AM Reporting Lab: [address] [address] Performing Lab: [address] [address] GLUCOSE-HAND MONITOR 102 mg/dL H Sep 05, 2024 08:47 PM [facility] GLUCOSE-HAND MONITOR CAPILLARY Specime n Type: CAPILLARY Comment: Test performed by: [id number] Meter #: [id number] Ordering Provider: FRANCK TURNER Report Released Date/Time: Sep 06, 2024 02:13 AM Reporting Lab: [address] [address] Performing Lab: [address] [address] GLUCOSE-HAND MONITOR 103 mg/dL H Sep 05, 2024 04:40 PM [facility] GLUCOSE-HAND MONITOR CAPILLARY Specime n Type: CAPILLARY Comment: AAMIR RN notified Test performed by: [id number] Meter #: [id number] Ordering Provider: RFANCK TURNER Report Released Date/Time: Sep 05, 2024 05:11 PM Reporting Lab: [address] [address] Performing Lab: [address] [address] GLUCOSE-HAND MONITOR 113 mg/dL H Sep 05, 2024 12:06 PM [facility] GLUCOSE-HAND MONITOR CAPILLARY Specime n Type: CAPILLARY Comment: Test performed by: [id number] Meter #: [id number] Ordering Provider: FRANCK TURNER Report Released Date/Time: Sep 05, 2024 12:23 PM Reporting Lab: [address] [address] Performing Lab: [address] [address] GLUCOSE-HAND MONITOR 115 mg/dL H Sep 05, 2024 06:26 AM [facility] GLUCOSE-HAND MONITOR CAPILLARY Specime n Type: CAPILLARY Comment: AAMIR Correction Dose Test performed by: [id number] Meter #: [id number] Ordering Provider: FRANCK TURNER Report Released Date/Time: Sep 05, 2024 06:43 AM Reporting Lab: [address] [address] Performing Lab: [address] [address] GLUCOSE-HAND MONITOR 111 mg/dL H Sep 04, 2024 08:59 PM [facility] GLUCOSE-HAND MONITOR CAPILLARY Specime n Type: CAPILLARY Comment: AAMIR RN notified Test performed by: [id number] Meter #: [id number] Ordering Provider: FRANCK TURNER Report Released Date/Time: Sep 04, 2024 09:36 PM Reporting Lab: [address] [address] Performing Lab: [address] [address] GLUCOSE-HAND MONITOR 123 mg/dL H Sep 04, 2024 04:41 PM [facility] GLUCOSE-HAND MONITOR CAPILLARY Specime n Type: CAPILLARY Comment: AAMIR RN notified Test performed by: [id number] Meter #: [id number] Ordering Provider: FRANCK TURNER Report Released Date/Time: Sep 04, 2024 05:03 PM Reporting Lab: [address] [address] Performing Lab: [address] [address] GLUCOSE-HAND MONITOR 118 mg/dL H Sep 04, 2024 12:36 PM [facility] GLUCOSE-HAND MONITOR CAPILLARY Specime n Type: CAPILLARY Comment: AAMIR RN notified Test performed by: [id number] Meter #: [id number] Ordering Provider: FRANCK TURNER Report Released Date/Time: Sep 04, 2024 12:53 PM Reporting Lab: [address] [address] Performing Lab: [place] [address] GLUCOSE-HAND MONITOR 129 mg/dL H 71-99 Sep 04, 2024 12:03 PM [facility] RESPIRATORY VIRUS PANEL (BIOFIRE) NASOPHARYN X Specimen Type: NASOPHARYNX Comment: ~For Test: RESPIRATORY VIRUS PANEL (BIOFIRE) ~ORDER READ BACK TO: FRANCK TURNER 09/04/24@11:30 Ordering Provider: FRANCK TURNER Report Released Date/Time: Sep 04, 2024 11:33 AM Reporting Lab: [place] [address] Performing Lab: [place] [address] ADENOVIRUS (BIOFIRE) Not Detected -Not D etected [...] 03, 2024 11:10 AM Reporting Lab: [place] [facility] [address] [address] Performing Lab: [place] [address] [address] MAGNESIUM 1.8 mg/dL 1.6-2.6 Sep 04, 2024 [...] Sep 03, 2024 11:10 AM Reporting Lab: [address] [address] Performing Lab: [address] CREATININE 0.75 mg/dL 0.72-1.25 UREA NITROGEN [...] n Type: CAPILLARY Comment: Test performed by: [id number] Meter #: [id number] Ordering Provider: FRANCK TURNER Report Released Date/Time: Sep 04, 2024 06:28 AM Reporting Lab: [address] Performing Lab: [address] GLUCOSE-HAND MONITOR 114 mg/dL H 71-99 Sep 03, 2024 05:19 PM [facility] GLUCOSE-HAND MONITOR CAPILLARY Specime n Type: CAPILLARY Comment: Test performed by: [id number] Meter #: [id number] Ordering Provider: FRANCK TURNER Report Released Date/Time: Sep 03, 2024 05:37 PM Reporting Lab: [address] Performing Lab: [address] [address] GLUCOSE-HAND MONITOR 124 mg/dL H 71-99 Sep 03, 2024 04:41 PM [facility] GLUCOSE-HAND MONITOR CAPILLARY Specime n Type: CAPILLARY Comment: Test performed by: [id number] Meter #: [id number] Ordering Provider: FRANCK TURNER Report Released Date/Time: Sep 03, 2024 06:09 PM Reporting Lab: [address] [address] Performing Lab: [address] [address] GLUCOSE-HAND MONITOR 112 mg/dL H 71-99 Sep 03, 2024 01:35 PM [facility] URINE LYTES URINE Specimen Type : URINE Comment: ~Altered mental status with no identifiable cause Ordering Provider: FRANCK TURNER Report Released Date/Time: Sep 02, 2024 04:44 PM Reporting Lab: [address] [address] Performing Lab: [address] [address] SODIUM 130 mmol/L POTASSIUM 47.6 mmol/L CHLORIDE 137 mmol/L Sep 03, 2024 01:35 PM [facility] CREATININE URINE Specimen Type: URINE Comment: ~Altered mental status with no identifiable cause Ordering Provider: FRANCK TURNER Report Released Date/Time: Sep 02, 2024 04:44 PM Reporting Lab: [address] [address] Performing Lab: [address] [address] CREATININE 150.9 mg/dL Sep 03, 2024 01:35 PM [facility] OSMOLALITY URINE Specimen Type: URINE Comment: ~Altered mental status with no identifiable cause Ordering Provider: FRANCK TURNER Report Released Date/Time: Sep 02, 2024 04:44 PM Reporting Lab: [address] [address] Performing Lab: [address] [address] OSMOLALITY 522 mosm/kg 38-1400 Sep 03, 2024 01:35 PM [facility] UREA NITROGEN URINE Specimen Type : URINE Comment: ~Altered mental status with no identifiable cause Ordering Provider: FRANCK TURNER Report Released Date/Time: Sep 02, 2024 04:44 PM Reporting Lab: [address] [address] Performing Lab: [address] [address] UREA NITROGEN 320 mg/dL Sep 03, 2024 01:35 PM [facility] URINALYSIS WITH REFLEX TO CULTURE URINE Specimen Type: URINE Comment: ~Altered mental status with no identifiable cause Ordering Provider: FRANCK TURNER Report Released Date/Time: Sep 02, 2024 04:44 PM Reporting Lab: [address] [address] Performing Lab: [address] [address] URINE COLOR Yellow Colorless-Yellow APPEARANCE CLOUDY H [...] H 0-28 Sep 03, 2024 11:58 AM [facility] GLUCOSE-HAND MONITOR CAPILLARY Specime n Type: CAPILLARY Comment: AAMIR RN notified Test performed by: [id number] Meter #: [id number] Ordering Provider: FRANCK TURNER Report Released Date/Time: Sep 03, 2024 12:15 PM Reporting Lab: [address] [address] Performing Lab: [address] [address] GLUCOSE-HAND MONITOR 135 mg/dL H Sep 03, 2024 07:09 AM [facility] GLUCOSE-HAND MONITOR CAPILLARY Specime n Type: CAPILLARY Comment: Test performed by: [id number] Meter #: [id number] Ordering Provider: FRANCK TURNER Report Released Date/Time: Sep 03, 2024 07:26 AM Reporting Lab: [address] [address] Performing Lab: [address] [address] GLUCOSE-HAND MONITOR 120 mg/dL H -Sep 03, 2024 07:05 AM [facility] CBC/PLT BLOOD Specimen Type: BLOOD No comment entered. Ordering Provider: FRANCK TURNER Report Released Date/Time: Sep 02, 2024 04:29 PM Reporting Lab: [address] [address] Performing Lab: [address] [address] WBC 6.9 10*3/uL 5.0-10.0 RBC 3.48 10*6/uL [...] Sep 02, 2024 04:29 PM Reporting Lab: [address] [address] Performing Lab: [address] [address] MAGNESIUM 1.7 mg/dL 1.6-2.6 Sep 03, 2024 [...] Sep 02, 2024 04:29 PM Reporting Lab: [address] [address] Performing Lab: [address] [address] CREATININE 0.82 mg/dL 0.72-1.25 UREA NITROGEN 12 [...] BLOOD Comment: Prediabetes: 5.7%-6.4% Diabetes: >= 6.5% [facility] guidelines for A1c interpretation: Glycemic control [...] 8.73 and 9.27. Ref: https://ngsp.org/CAPdata.asp. The in-house [employer] D-100 analyzer has a historical CV <= 2%. Contact the laboratory for further performance characteristics of this assay. Ordering Provider: FRANCK TURNER Report Released Date/Time: Sep 02, 2024 04:29 PM Reporting Lab: [address] [address] Performing Lab: [place] [address] GLYCOHEMOGLOBIN 5.6 4.4-5.6 Sep 03, 2024 07:05 AM [facility] OSMOLALITY SERUM Specimen Type: SERUM No comment entered. Ordering Provider: FRANCK TURNER Report Released Date/Time: Sep 02, 2024 04:44 PM Reporting Lab: [address] [address] Performing Lab: [address] [address] OSMOLALITY 271 mosm/kg L 280-300 Sep 02, 2024 08:15 PM [facility] GLUCOSE-HAND MONITOR CAPILLARY Specime n Type: CAPILLARY Comment: AAMIR DEXTER notified Test performed by: [id number] Meter #: [id number] Ordering Provider: FRANCK TURNER Report Released Date/Time: Sep 02, 2024 08:57 PM Reporting Lab: [address] [address] Performing Lab: [address] [address] GLUCOSE-HAND MONITOR 126 mg/dL H 71-99 Sep [...] Sep 02, 2024 05:12 PM Reporting Lab: [address] [address] Performing Lab: [address] [address] MRSA SURVL NARES DNA Negative Negative Sep 02, 2024 05:36 PM [facility] GLUCOSE-HAND MONITOR CAPILLARY Specime n Type: CAPILLARY Comment: Test performed by: [id number] Meter #: [id number] Ordering Provider: FRANCK TURNER Report Released Date/Time: Sep 02, 2024 05:53 PM Reporting Lab: [address] [address] Performing Lab: [address] [address] GLUCOSE-HAND MONITOR 127 mg/dL H 71-99 Aug 29, 2024 10:04 PM [facility] URINALYSIS WITH REFLEX TO CULTURE URINE Specimen Type: URINE Comment: ~For Test: URINALYSIS WITH REFLEX TO CULTURE ~REORDER Ordering Provider: FELISA COLE Report Released Date/Time: Aug 29, 2024 09:36 PM Reporting Lab: [address] [address] Performing Lab: [address] [address] URINE COLOR Yellow Colorless-Yellow APPEARANCE Clear Clear [...] /[LPF] 0-28 Aug 29, 2024 08:32 PM [facility] HIGH SENSITIVITY TROPONIN I PLASMA [...] decrease <15 G5 Kidney failure Ordering Provider: FELSIA COLE Report Released Date/Time: Aug 29, 2024 07:55 PM Reporting Lab: [address] [address] Performing Lab: [address] [address] HIGH SENSITIVITY TROPONIN I 7 4-35 Aug 29, 2024 08:32 PM [facility] CBC/PLT BLOOD Specimen Type: BLOOD No comment entered. Ordering Provider: FELISA COLE Report Released Date/Time: Aug 29, 2024 07:55 PM Reporting Lab: [address] [address] Performing Lab: [address] [address] WBC 11.2 10*3/uL H 5.0-10.0 RBC 3.97 10*6/uL L 4.6-6.2 HGB 10.9 g/dL L 14.0-18.0 HCT 33.5 L 42.0-52.0 MCV 84.4 fL 80.0-94.0 MCH 27.5 pg 27.0-31.0 MCHC 32.5 g/dL 32.0-36.0 PLT 230 10*3/uL 150-450 MPV 10.2 fL 9.0-13.1 RDW 14.6 11.0-16.0 NRBC 0.0 0.0-0.0 Aug 29, 2024 08:32 PM [facility] PANEL 5 PLASMA Specimen Type: [...] Aug 29, 2024 07:55 PM Reporting Lab: [address] [address] Performing Lab: [address] [address] CREATININE 0.85 mg/dL 0.72-1.25 UREA NITROGEN 15 [...] 18 /min 93 % 0 [place] Sep 03, 2024 04:38 PM 98.5 F 81 /min 129/76 mm[Hg] 15 /min 94 % 0 [facility] Sep 03, 2024 09:07 AM 98.0 F 94 /min 121/71 mm[Hg] 15 /min 90 % 0 [place] [facility] Sep 03, 2024 06:13 AM 217.5 lb 32 [place] [facility] Sep 03, 2024 04:41 AM 98.9 F 92 /min 124/71 mm[Hg] 20 /min 91 % 0 [place] Advance Directives: All historical and current [...] 08, 2024 ADVANCE DIRECTIVE DISCUSSION [facility] Radiology Reports: +/- 30 days of [...] BRAIN W & W/O: LUIS MANUEL PERDOMO [id number] -1945 M Exm Date: SEP 06, 2024@13:40 Req Phys: FRANCK TURNERSav [facility] Loc: 5-MED/TEL/09-06-2024@19:09 Img Loc: [facility] Service: [place] [address] (Case [id number] COMPLETE) MRI BRAIN W & W/O (MRI Detailed) CPT:81912 Contrast Media : Gadolinium Reason for Study: SEE CLINICAL HISTORY Pharmaceutical: GADOTERIDOL 279.3MG/ML 20ML INJ, 19ml Clinical History: MRI Screening (Required): IMPLANTED DEVICE DOCUMENTATION IMPLANTED DEVICE DOCUMENTATION NOT FOUND Does the have any Cardiac Implants? None Does the have any implanted stimulators? None Does the [place] have cochlear implants? No Does the [place] have Cerebral aneurysm clip(s)? I don't know Does the have any shrapnel? I don't know If yes, where in your body? Please list other implants not listed above: MRI table has a weight limit of 551 lbs. [place]'s Weight: *212 lb [96.16 kg] (09/04/2024 05:19) Is this patient claustrophobic?: No REASON FOR EXAM:MULTIPLE SCLEROSIS (indicate suspected or established) PERTINENT PATIENT HISTORY: MS c/f for flare Risk factors for GADOLINIUM NEPHROGENIC SYSTEMIC SCLEROSIS: Report Status: Verified Date Reported: SEP 06, 2024 Date Verified: SEP 06, 2024 Tissue Technologist E-Sig: Report: MRI brain without and with [...] Staff: ARCENIO LEYVA, Staff Radiologist Verified by social studies teacher for ARCENIO LEYVA /ARCENIO AVILA AAMIRWILSON-CDD [facility] Sep 06, 2024 01:40 PM MRI C SPINE W & W/ O CONTRAST(FURTHER SEQUENCES): LUIS MANUEL PERDOMO [id number] -1945 M Exm Date: SEP 06, 2024@13:40 Req Phys: AZARFRANCK WHEELER Pat Loc: 5-MED/TEL/09-07-2024@06:42 Img Loc: [facility] Service: [place] [address] (Case [id number] COMPLETE) MRI C SPINE W & W/O CONTRAST(FURT(MRI Detailed) CPT:85600 Contrast Media : Gadolinium Reason for Study: SEE CLINICAL HISTORY Pharmaceutical: GADOTERIDOL 279.3MG/ML 20ML INJ, 19ml Clinical History: STATUS OF PLAIN FILMS:Not performed (Provide justification for MR W/O prior plain films below.) MRI for MS MRI Screening (Required): IMPLANTED DEVICE DOCUMENTATION IMPLANTED DEVICE DOCUMENTATION NOT FOUND Does the have any Cardiac Implants? None Does the [place] have any implanted stimulators? None Does the have cochlear implants? No Does the [place] have Cerebral aneurysm clip(s)? I don't know [...] 07, 2024 Date Verified: SEP 07, 2024 Tissue Technologist E-Sig: Report: EXAMINATION: MRI OF THE CERVICAL [...] Interpreting Staff: HUANG TAI, Radiologist Verified by social studies teacher for HUANG TAI /HUANG WHEATLEY-Sav [facility] Sep 03, 2024 10:45 AM CHEST SINGLE(1) EW: LUIS MANUEL PERDOMO [id number] -1945 M Ex Date: SEP 03, 2024@10:45 Req Phys: FRANCK TURNER Pat Loc: 5-MED/TEL/09-03-2024@10:56 Img Loc: [facility] Service: [place] [address] (Case [id number] COMPLETE)CHEST SINGLE(1) VIEW (RAD Detailed) CPT:75758 Proc Modifiers : PORTABLE EXAM Reason for Study: Eval volume status Clinical History: Report Status: Verified Date Reported: SEP 03, 2024 Date Verified: SEP 03, 2024 Tissue Technologist E-Sig: Report: EXAMINATION: SINGLE VIEW CHEST CLINICAL [...] Interpreting Staff: HUANG TAI, Radiologist Verified by social studies teacher for HUANG TAI /HUANG WHEATLEY-CDD [facility] Aug 29, 2024 08:[address] HEAD W/O CONT: LUIS MANUEL PERDOMO [id number] -1945 M Exm Date: AUG 29, 2024@20:28 Req Phys: FELISA COLE Loc: ED/4P-12A (Req'g Loc) Img Loc: CT SCAN Service: [place] [address] (Case [id number] COMPLETE) CT HEAD W/O CONT (CT Detailed) CPT:56306 Reason for Study: SEE CLINICAL HISTORY Clinical History: REASON FOR SEND OUT: ATTENDING PHYSICIAN NAME: New transient neurological s/s - suspected TIA HISTORY/REASON FOR EXAM: confusion Report Status: Verified Date Reported: AUG 29, 2024 Date Verified: AUG 29, 2024 Tissue Technologist E-Sig: Report: HISTORY confusion COMPARISON No prior [...] Staff: ABDIRAHMAN CROW, Staff Physician Verified by social studies teacher for ADBIRAHMAN CROW /GUERITA CROW,ABDIRAHMAN [facility] Pathology Reports: +/- 30 days of [...] Reporting Lab: [facility] [CLIA# [id number]] [address] [place] [id number] Accession [UID]: [id number] [[id number]] Received: Sep 03, 2024@14:02 Collection sample: URINE, [...] Performed By: [facility] [CLIA# [id number]] [address] [place], [place] [id number] MAGDY CALABRESE [facility] Sep 02, 2024 06:00 PM LR MICROBIOLOGY RE PORT: Reporting Lab: [facility] [IA# [id number]] [address] [place], [place] [id number] Accession [UID]: [id number] [[id number]] Received: Sep 02, 2024@18:07 Collection sample: BLD CULTURE BOTTLES Collection date: Sep 02, 2024 18:00 Site/Specimen: BLOOD Provider: FRANCK TURNER Comment on specimen: L HAND Test(s) ordered: CULTURE, BLOOD................ completed: Sep 08, 2024 * BACTERIOLOGY FINAL REPORT => Sep 08, 2024 08:25 TECH CODE: [id number] Bacteriology Remark(s): Blood culture status=NO GROWTH (unless notified otherwise) 09/03/2024 AEROBIC: NO GROWTH ANAEROBIC: NO GROWTH =--=--=--=--=--=--=--=--=--=-- =--=--=--=--=--=--=--=--=--=-- =--=--=--=--=--=-- Performing Laboratory: Bacteriology Report Performed By: [facility] [CLIA# [id number]] [address] [place], [place] [id number] MAG[facility]ABRESE [facility] Aug 29, 2024 10:18 PM LR MICROBIOLOGY RE PORT: Reporting Lab: [facility] [CLIA# [id number]] [address] [place], [place] [id number] Accession [UID]: [id number] [[id number]] Received: Aug 29, 2024@22:18 Collection sample: URINE, CLEAN CATCH Collection date: Aug 29, 2024 22:18 Site/Specimen: URINE Provider: FELISA COLE Test(s) ordered: CULTURE, URINE................ completed: Aug 31, 2024 09:51 * BACTERIOLOGY FINAL REPORT => Aug 31, 2024 09:51 TECH CODE: [id number] Bacteriology Remark(s): NO GROWTH 08/30/2024 <10,000 CFU/ML. 08/31/2024 =--=--=--=--=--=--=--=--=--=-- =--=--=--=--=--=--=--=--=--=-- =--=--=--=--=--=-- Performing Laboratory: Bacteriology Report Performed By: [facility] [CLIA# [id number]] [address] [place] [address] MAGDY CALABRESE-MALKA [facility]
--- OUTSIDE RECORDS SUMMARY | 2024-09-03 04:08 | XMS_ITS ---
[place] DAILY HOSPITALIZATION DATA [facility] Encounter Summary Created on: September 22, 2024 LUIS MANUEL PERDOMO : 1945 Sex: Male Author Name [facility] Address [address] [place] [address] Care Team Providers Care Patent Counsel Name Role Phone YULISSA HENDERSON Primary Care [...] PLAN F Mar 24, 2014 PLAN F [id number] LUIS MANUEL PERDOMO PATIENT [facility] [place] [facility] PREFERRED PROVIDER ORGANIZAT ION (PPO) [facility] Sep 21, 2012 [id number] [phone] LUIS MANUEL PERDOMO PATIENT [employer] ([id number]) PRESCRIPT ION [id number] Sep 21, 2012 [id number] [phone] LUIS MANUEL PERDOMO PATIENT MEDICARE (WNR) MEDICARE (M) PART B Sep 21, 2012 PART B [id number] NOEMI PERDOMO PATIENT MEDICARE (WNR) MEDICARE (M) PART A Jan 22, 2011 PART A [id number] [phone] LEANNE, NOEMI PATIENT MEDICARE PART D (WNR) MEDICARE (M) PART D Mar 24, 2014 PART D [id number] LUIS MANUEL PERDOMO PATIENT Selected Encounter This section includes the information on record at [place] for the Encounter. Date/Time Encounter Type Encounter Description Reason Pro vider Source Sep 03, 2024 08:08 AM Inpatient Visit DAILY HOSPITALIZATION DATA [facility] Encounter Template Text not used by [place] Plan of Treatment: Future Appointments (+ 6 months) and Future Tests (+/- 45 days) The Plan of Treatment section includes future care activities for the patient from [facility] [place] [facility] This section includes future appointments and future orders which are active, pending or scheduled. Future Appointments This section includes appointments that were scheduled to occur 6 months from the date of the Encounter, up to a maximum of 20 appointments. The data comes from all [place] treatment facilities. Appointment Date/Time Appointment Type Appointme nt Facility Name Sep 13, 2024 08:00 AM [facility] Sep 30, 2024 01:30 PM [facility] - SURGERY [facility] Active, Pending, and Scheduled Orders This section includes a listing of several types of active, pending, and scheduled orders, including clinic medications orders, diagnostic test orders, procedure orders and consult orders; where the start date of the order is 45 days before the date of the Encounter or 45 days after the date of theEncounter. The data comes from all [facility] facilities. Test Date/Time Test Type Test Details Facility Name Sep 13, 2024 01:33 PM Consult Order [facility] Cons Director Risk's Choice [facility] Lab Results: +/- 30 days of the encounter This section includes the Chemistry and Hematology Lab Results on record with [place] for the patient. Radiology Reports and Pathology Reports are provided separately, in subsequent sections. Lab Results This section contains the Chemistry/Hematology Results that were resulted 30 days before or 30 daysafter the date of the Encounter. Date/Time Source Result Type Result - Unit Interpretation Reference Range Specimen Type Comment Sep 09, 2024 12:16 PM [facility] GLUCOSE-HAND MONITOR CAPILLARY Specimen Type: CAPILLARY Comment: Test performed by: [id number] Meter #: [id number] Ordering Provider: FRANCK TURNER Report Released Date/Time: Sep 09, 2024 12:33 PM Reporting Lab: [address] [address] Performing Lab: [address] [address] GLUCOSE-HAND MONITOR 116 mg/dL H Sep 09, 2024 06:07 AM [facility] GLUCOSE-HAND MONITOR CAPILLARY Specime n Type: CAPILLARY Comment: Test performed by: [id number] Meter #: [id number] Ordering Provider: FRANCK TURNER Report Released Date/Time: Sep 09, 2024 08:17 AM Reporting Lab: [address] [address] Performing Lab: [address] [address] GLUCOSE-HAND MONITOR 112 mg/dL H Sep 08, 2024 09:13 PM [facility] GLUCOSE-HAND MONITOR CAPILLARY Specime n Type: CAPILLARY Comment: Test performed by: [id number] Meter #: [id number] Ordering Provider: FRANCK TURNER Report Released Date/Time: Sep 08, 2024 09:31 PM Reporting Lab: [address] [address] Performing Lab: [address] [address] GLUCOSE-HAND MONITOR 107 mg/dL H Sep 08, 2024 03:49 PM [facility] GLUCOSE-HAND MONITOR CAPILLARY Specime n Type: CAPILLARY Comment: AAMIR RN notified Test performed by: [id number] Meter #: [id number] Ordering Provider: FRANCK TURNER Report Released Date/Time: Sep 08, 2024 04:33 PM Reporting Lab: [address] [address] Performing Lab: [address] [address] GLUCOSE-HAND MONITOR 162 mg/dL H Sep 08, 2024 11:43 AM [facility] GLUCOSE-HAND MONITOR CAPILLARY Specime n Type: CAPILLARY Comment: AAMIR RN notified Test performed by: [id number] Meter #: [id number] Ordering Provider: FRANCK TURNER Report Released Date/Time: Sep 08, 2024 12:03 PM Reporting Lab: [address] [address] Performing Lab: [address] [address] GLUCOSE-HAND MONITOR 133 mg/dL H Sep 08, 2024 06:13 AM [facility] GLUCOSE-HAND MONITOR CAPILLARY Specime n Type: CAPILLARY Comment: Test performed by: [id number] Meter #: [id number] Ordering Provider: FRANCK TURNER Report Released Date/Time: Sep 08, 2024 06:46 AM Reporting Lab: [address] [address] Performing Lab: [address] [address] GLUCOSE-HAND MONITOR 104 mg/dL H Sep 07, 2024 07:59 PM [facility] GLUCOSE-HAND MONITOR CAPILLARY Specime n Type: CAPILLARY Comment: Test performed by: [id number] Meter #: [id number] Ordering Provider: FRANCK TURNER Report Released Date/Time: Sep 07, 2024 09:05 PM Reporting Lab: [address] [address] Performing Lab: [address] [address] GLUCOSE-HAND MONITOR 107 mg/dL H Sep 07, 2024 04:39 PM [facility] GLUCOSE-HAND MONITOR CAPILLARY Specime n Type: CAPILLARY Comment: Test performed by: [id number] Meter #: [id number] Ordering Provider: FRANCK TURNER Report Released Date/Time: Sep 07, 2024 05:09 PM Reporting Lab: [address] [address] Performing Lab: [address] [address] GLUCOSE-HAND MONITOR 105 mg/dL H Sep 07, 2024 11:41 AM [facility] GLUCOSE-HAND MONITOR CAPILLARY Specime n Type: CAPILLARY Comment: Test performed by: [id number] Meter #: [id number] Ordering Provider: FRANCK TURNER Report Released Date/Time: Sep 07, 2024 12:41 PM Reporting Lab: [address] [address] Performing Lab: [address] [address] GLUCOSE-HAND MONITOR 144 mg/dL H Sep 07, 2024 05:56 AM [facility] GLUCOSE-HAND MONITOR CAPILLARY Specime n Type: CAPILLARY Comment: Test performed by: [id number] Meter #: [id number] Ordering Provider: FRANCK TURNER Report Released Date/Time: Sep 07, 2024 06:31 AM Reporting Lab: [address] [address] Performing Lab: [address] [address] GLUCOSE-HAND MONITOR 96 mg/dL Sep 06, 2024 08:10 PM [facility] GLUCOSE-HAND MONITOR CAPILLARY Specime n Type: CAPILLARY Comment: Test performed by: [id number] Meter #: [id number] Ordering Provider: FRANCK TURNER Report Released Date/Time: Sep 06, 2024 08:52 PM Reporting Lab: [address] [address] Performing Lab: [address] [address] GLUCOSE-HAND MONITOR 124 mg/dL H Sep 06, 2024 04:27 PM [facility] GLUCOSE-HAND MONITOR CAPILLARY Specime n Type: CAPILLARY Comment: Test performed by: [id number] Meter #: [id number] Ordering Provider: FRANCK TURNER Report Released Date/Time: Sep 06, 2024 05:15 PM Reporting Lab: [address] [address] Performing Lab: [address] [address] GLUCOSE-HAND MONITOR 107 mg/dL H Sep 06, 2024 12:12 PM [facility] GLUCOSE-HAND MONITOR CAPILLARY Specime n Type: CAPILLARY Comment: Test performed by: [id number] Meter #: [id number] Ordering Provider: FRANCK TURNER Report Released Date/Time: Sep 06, 2024 12:29 PM Reporting Lab: [address] [address] Performing Lab: [address] [address] GLUCOSE-HAND MONITOR 181 mg/dL H -Sep 06, 2024 06:13 AM [facility] GLUCOSE-HAND MONITOR CAPILLARY Specime n Type: CAPILLARY Comment: Test performed by: [id number] Meter #: [id number] Ordering Provider: FRANCK TURNER Report Released Date/Time: Sep 06, 2024 06:36 AM Reporting Lab: [address] [address] Performing Lab: [address] [address] GLUCOSE-HAND MONITOR 102 mg/dL H Sep 05, 2024 08:47 PM [facility] GLUCOSE-HAND MONITOR CAPILLARY Specime n Type: CAPILLARY Comment: Test performed by: [id number] Meter #: [id number] Ordering Provider: FRANCK TURNER Report Released Date/Time: Sep 06, 2024 02:13 AM Reporting Lab: [address] [address] Performing Lab: [address] [address] GLUCOSE-HAND MONITOR 103 mg/dL H Sep 05, 2024 04:40 PM [facility] GLUCOSE-HAND MONITOR CAPILLARY Specime n Type: CAPILLARY Comment: AAMIR RN notified Test performed by: [id number] Meter #: [id number] Ordering Provider: FRANCK TURNER Report Released Date/Time: Sep 05, 2024 05:11 PM Reporting Lab: [address] [address] Performing Lab: [address] [address] GLUCOSE-HAND MONITOR 113 mg/dL H Sep 05, 2024 12:06 PM [facility] GLUCOSE-HAND MONITOR CAPILLARY Specime n Type: CAPILLARY Comment: Test performed by: [id number] Meter #: [id number] Ordering Provider: FRANCK TURNER Report Released Date/Time: Sep 05, 2024 12:23 PM Reporting Lab: [address] [address] Performing Lab: [address] [address] GLUCOSE-HAND MONITOR 115 mg/dL H Sep 05, 2024 06:26 AM [facility] GLUCOSE-HAND MONITOR CAPILLARY Specime n Type: CAPILLARY Comment: AAMIR Correction Dose Test performed by: [id number] Meter #: [id number] Ordering Provider: FRANCK TURNER Report Released Date/Time: Sep 05, 2024 06:43 AM Reporting Lab: [address] [address] Performing Lab: [address] [address] GLUCOSE-HAND MONITOR 111 mg/dL H Sep 04, 2024 08:59 PM [facility] GLUCOSE-HAND MONITOR CAPILLARY Specime n Type: CAPILLARY Comment: AAMIR RN notified Test performed by: [id number] Meter #: [id number] Ordering Provider: FRANCK TURNER Report Released Date/Time: Sep 04, 2024 09:36 PM Reporting Lab: [address] [address] Performing Lab: [address] [address] GLUCOSE-HAND MONITOR 123 mg/dL H Sep 04, 2024 04:41 PM [facility] GLUCOSE-HAND MONITOR CAPILLARY Specime n Type: CAPILLARY Comment: AAMIR RN notified Test performed by: [id number] Meter #: [id number] Ordering Provider: FRANCK TURNER Report Released Date/Time: Sep 04, 2024 05:03 PM Reporting Lab: [address] [address] Performing Lab: [address] [address] GLUCOSE-HAND MONITOR 118 mg/dL H Sep 04, 2024 12:36 PM [facility] GLUCOSE-HAND MONITOR CAPILLARY Specime n Type: CAPILLARY Comment: AAMIR RN notified Test performed by: [id number] Meter #: [id number] Ordering Provider: FRANCK TURNER Report Released Date/Time: Sep 04, 2024 12:53 PM Reporting Lab: [address] [address] Performing Lab: [place] [address] GLUCOSE-HAND MONITOR 129 mg/dL H 71-99 Sep 04, 2024 12:03 PM [facility] RESPIRATORY VIRUS PANEL (BIOFIRE) NASOPHARYN X Specimen Type: NASOPHARYNX Comment: ~For Test: RESPIRATORY VIRUS PANEL (BIOFIRE) ~ORDER READ BACK TO: FRANCK TURNER 09/04/24@11:30 Ordering Provider: FRANCK TURNER Report Released Date/Time: Sep 04, 2024 11:33 AM Reporting Lab: [place] [phone] Performing Lab: [place] [phone] ADENOVIRUS (BIOFIRE) Not Detected -Not D etected [...] 04, 2024 06:55 AM [facility] MAGNESIUM PLASMA Specimen Type: PLASM A [...] <15 G5 Kidney failure Ordering Provider: FRANCK TURNRE Report Released Date/Time: Sep 03, 2024 11:10 AM Reporting Lab: [place] [facility] [address] [facility] [address] Performing Lab: [place] [address] [facility] [address] MAGNESIUM 1.8 mg/dL 1.6-2.6 Sep 04, 2024 06:55 AM [facility] PANEL 1 [...] Sep 03, 2024 11:10 AM Reporting Lab: [address] [address] Performing Lab: [address] CREATININE 0.75 mg/dL 0.72-1.25 UREA NITROGEN 13 mg/dL 9-25 GLUCOSE 105 mg/dL H 74-100 SODIUM 128 mmol/L L 136-145 POTASSIUM 3.9 mmol/L 3.5-5.1 CHLORIDE 99 mmol/L 98-107 CO2 21 mmol/L L 22-29 CALCIUM 8.0 mg/dL L 8.4-10.2 ANION GAP 8 meq/L 3-19 eGFR (CKD-EPI) >90 Sep 04, 2024 06:02 AM [facility] GLUCOSE-HAND MONITOR CAPILLARY Specime n Type: CAPILLARY Comment: Test performed by: [id number] Meter #: [id number] Ordering Provider: FRANCK TURNER Report Released Date/Time: Sep 04, 2024 06:28 AM Reporting Lab: [address] Performing Lab: [address] GLUCOSE-HAND MONITOR 114 mg/dL H 71-99 Sep 03, 2024 05:19 PM [facility] GLUCOSE-HAND MONITOR CAPILLARY Specime n Type: CAPILLARY Comment: Test performed by: [id number] Meter #: [id number] Ordering Provider: FRANCK TURNER Report Released Date/Time: Sep 03, 2024 05:37 PM Reporting Lab: [address] Performing Lab: [address] [address] GLUCOSE-HAND MONITOR 124 mg/dL H 71-99 Sep 03, 2024 04:41 PM [facility] GLUCOSE-HAND MONITOR CAPILLARY Specime n Type: CAPILLARY Comment: Test performed by: [id number] Meter #: [id number] Ordering Provider: FRANCK TURNER Report Released Date/Time: Sep 03, 2024 06:09 PM Reporting Lab: [address] [address] Performing Lab: [address] [address] GLUCOSE-HAND MONITOR 112 mg/dL H 71-99 Sep 03, 2024 01:35 PM [facility] URINE LYTES URINE Specimen Type : URINE Comment: ~Altered mental status with no identifiable cause Ordering Provider: FRANCK TURNER Report Released Date/Time: Sep 02, 2024 04:44 PM Reporting Lab: [address] [address] Performing Lab: [address] [address] SODIUM 130 mmol/L POTASSIUM 47.6 mmol/L CHLORIDE 137 mmol/L Sep 03, 2024 01:35 PM [facility] CREATININE URINE Specimen Type: URINE Comment: ~Altered mental status with no identifiable cause Ordering Provider: FRANCK TURNER Report Released Date/Time: Sep 02, 2024 04:44 PM Reporting Lab: [address] [address] Performing Lab: [address] [address] CREATININE 150.9 mg/dL Sep 03, 2024 01:35 PM [facility] UREA NITROGEN URINE Specimen Type : URINE Comment: ~Altered mental status with no identifiable cause Ordering Provider: FRANCK TURNER Report Released Date/Time: Sep 02, 2024 04:44 PM Reporting Lab: [address] [address] Performing Lab: [address] [address] UREA NITROGEN 320 mg/dL Sep 03, 2024 01:35 PM [facility] URINALYSIS WITH REFLEX TO CULTURE URINE Specimen Type: URINE Comment: ~Altered mental status with no identifiable cause Ordering Provider: FRANCK TURNER Report Released Date/Time: Sep 02, 2024 04:44 PM Reporting Lab: [address] [address] Performing Lab: [address] [address] URINE COLOR Yellow Colorless-Yellow APPEARANCE CLOUDY H [...] H 0-28 Sep 03, 2024 01:35 PM [facility] OSMOLALITY URINE Specimen Type: URINE Comment: ~Altered mental status with no identifiable cause Ordering Provider: FRANCK TURNER Report Released Date/Time: Sep 02, 2024 04:44 PM Reporting Lab: [place] [phone] Performing Lab: [place] [phone] OSMOLALITY 522 mosm/kg 38-1400 Sep 03, 2024 11:58 AM [facility] GLUCOSE-HAND MONITOR CAPILLARY Specime n Type: CAPILLARY Comment: AAMIR RN notified Test performed by: [id number] Meter #: [id number] Ordering Provider: FRANCK TURNER Report Released Date/Time: Sep 03, 2024 12:15 PM Reporting Lab: [address] [address] Performing Lab: [address] [address] GLUCOSE-HAND MONITOR 135 mg/dL H Sep 03, 2024 07:09 AM [facility] GLUCOSE-HAND MONITOR CAPILLARY Specime n Type: CAPILLARY Comment: Test performed by: [id number] Meter #: [id number] Ordering Provider: FRANCK TURENR Report Released Date/Time: Sep 03, 2024 07:26 AM Reporting Lab: [address] [address] Performing Lab: [address] [address] GLUCOSE-HAND MONITOR 120 mg/dL H Sep 03, 2024 07:05 AM [facility] CBC/PLT BLOOD Specimen Type: BLOOD No comment entered. Ordering Provider: FRANCK TURNER Report Released Date/Time: Sep 02, 2024 04:29 PM Reporting Lab: [address] [address] Performing Lab: [address] [address] WBC 6.9 10*3/uL 5.0-10.0 RBC 3.48 10*6/uL L 4.6-6.2 HGB 9.5 g/dL L 14.0-18.0 HCT 29.1 L 42.0-52.0 MCV 83.6 fL 80.0-94.0 MCH 27.3 pg 27.0-31.0 MCHC 32.6 g/dL 32.0-36.0 PLT 258 10*3/uL 150-450 MPV 10.3 fL 9.0-13.1 RDW 14.8 11.0-16.0 NRBC 0.0 0.0-0.0 Sep 03, 2024 07:05 AM [facility] MAGNESIUM PLASMA Specimen Type: PLASM A [...] Sep 02, 2024 04:29 PM Reporting Lab: [address] [address] Performing Lab: [address] [address] MAGNESIUM 1.7 mg/dL 1.6-2.6 Sep 03, 2024 07:05 AM [facility] PANEL 1 [...] Sep 02, 2024 04:29 PM Reporting Lab: [address] [address] Performing Lab: [address] [address] CREATININE 0.82 mg/dL 0.72-1.25 UREA NITROGEN 12 mg/dL 9-25 GLUCOSE 109 mg/dL H 74-100 SODIUM 129 mmol/L L 136-145 POTASSIUM 4.2 mmol/L 3.5-5.1 CHLORIDE 99 mmol/L 98-107 CO2 21 mmol/L L 22-29 CALCIUM 8.1 mg/dL L 8.4-10.2 ANION GAP 9 meq/L 3-19 eGFR (CKD-EPI) 90 Sep 03, 2024 07:05 AM [facility] GLYCOHEMOGLOBIN BLOOD Specimen Type: BLOOD Comment: Prediabetes: 5.7%-6.4% Diabetes: >= 6.5% [place] guidelines for A1c interpretation: Glycemic control [...] 8.73 and 9.27. Ref: https://ngsp.org/CAPdata.asp. The in-house [employer] D-100 analyzer has a historical CV <= 2%. Contact the laboratory for further performance characteristics of this assay. Ordering Provider: FRANCK TURNER Report Released Date/Time: Sep 02, 2024 04:29 PM Reporting Lab: [address] [address] Performing Lab: [place] [phone] GLYCOHEMOGLOBIN 5.6 4.4-5.6 Sep 03, 2024 07:05 AM [facility] OSMOLALITY SERUM Specimen Type: SERUM No comment entered. Ordering Provider: FRANCK TURNER Report Released Date/Time: Sep 02, 2024 04:44 PM Reporting Lab: [address] [address] Performing Lab: [address] [address] OSMOLALITY 271 mosm/kg L 280-300 Sep 02, 2024 08:15 PM [facility] GLUCOSE-HAND MONITOR CAPILLARY Specime n Type: CAPILLARY Comment: AAMIR DEXTER notified Test performed by: [id number] Meter #: [id number] Ordering Provider: FRANCK TURNER Report Released Date/Time: Sep 02, 2024 08:57 PM Reporting Lab: [address] [address] Performing Lab: [address] [address] GLUCOSE-HAND MONITOR 126 mg/dL H 71-99 Sep 02, 2024 06:10 PM [facility] MRSA SURVL NARES DNA NARES Specime [...] Sep 02, 2024 05:12 PM Reporting Lab: [address] [address] Performing Lab: [address] [address] MRSA SURVL NARES DNA Negative Negative Sep 02, 2024 05:36 PM [facility] GLUCOSE-HAND MONITOR CAPILLARY Specime n Type: CAPILLARY Comment: Test performed by: [id number] Meter #: [id number] Ordering Provider: FRANCK TURNER Report Released Date/Time: Sep 02, 2024 05:53 PM Reporting Lab: [address] [address] Performing Lab: [address] [address] GLUCOSE-HAND MONITOR 127 mg/dL H 71-99 Aug 29, 2024 10:04 PM [facility] URINALYSIS WITH REFLEX TO CULTURE URINE Specimen Type: URINE Comment: ~For Test: URINALYSIS WITH REFLEX TO CULTURE ~REORDER Ordering Provider: FELISA COLE Report Released Date/Time: Aug 29, 2024 09:36 PM Reporting Lab: [address] [address] Performing Lab: [address] [address] URINE COLOR Yellow Colorless-Yellow APPEARANCE Clear Clear [...] /[LPF] 0-28 Aug 29, 2024 08:32 PM [facility] HIGH SENSITIVITY TROPONIN I PLASMA [...] Aug 29, 2024 07:55 PM Reporting Lab: [address] [address] Performing Lab: [address] [address] HIGH SENSITIVITY TROPONIN I 7 4-35 Aug 29, 2024 08:32 PM [facility] CBC/PLT BLOOD Specimen Type: BLOOD No comment entered. Ordering Provider: FELISA COLE Report Released Date/Time: Aug 29, 2024 07:55 PM Reporting Lab: [address] [address] Performing Lab: [address] [address] WBC 11.2 10*3/uL H 5.0-10.0 RBC 3.97 10*6/uL L 4.6-6.2 HGB 10.9 g/dL L 14.0-18.0 HCT 33.5 L 42.0-52.0 MCV 84.4 fL 80.0-94.0 MCH 27.5 pg 27.0-31.0 MCHC 32.5 g/dL 32.0-36.0 PLT 230 10*3/uL 150-450 MPV 10.2 fL 9.0-13.1 RDW 14.6 11.0-16.0 NRBC 0.0 0.0-0.0 Aug 29, 2024 08:32 PM [facility] PLASMA Specimen Type: [...] Aug 29, 2024 07:55 PM Reporting Lab: [address] [address] Performing Lab: [address] [address] CREATININE 0.85 mg/dL 0.72-1.25 UREA NITROGEN 15 [...] 18 /min 93 % 0 [place] Sep 03, 2024 04:38 PM 98.5 F 81 /min 129/76 mm[Hg] 15 /min 94 % [facility] Sep 03, 2024 09:07 AM 98.0 F 94 /min 121/71 mm[Hg] 15 /min 90 % 0 [place] Sep 03, 2024 06:13 AM 217.5 lb 32 [place] Sep 03, 2024 04:41 AM 98.9 F 92 /min 124/71 mm[Hg] 20 /min 91 % 0 [place] [facility] Advance Directives: All historical and current Section Date Range: From patient's date of to the date document was created. This section includes ALL of a patient's completed or amended [place] Advance and Rescinded Directives. The entries below indicate that a directive exists for the patient, but an actual copy is not included with this document. The data comes from all [place] facilities. Date Advance Directives Provider Source Mar 08, 2024 ADVANCE DIRECTIVE DISCUSSION [facility] Radiology Reports: +/- 30 days of the [...] the Encounter. The data comes from all [place] treatment facilities. Date/Time Radiology Report Provider Source Sep 06, 2024 01:40 PM MRI BRAIN W & W/O: LUIS MANUEL PERDOMO [id number] -1945 M Exm Date: SEP 06, 2024@13:40 Req Phys: FRANCK TURNERSav [facility] Loc: 5-MED/TEL/09-06-2024@19:09 Img Loc: [facility] Service: [place] [address] (Case [id number] COMPLETE) MRI BRAIN W & W/O (MRI Detailed) CPT:68085 Contrast Media : Gadolinium Reason for Study: SEE CLINICAL HISTORY Pharmaceutical: GADOTERIDOL 279.3MG/ML 20ML INJ, 19ml Clinical History: MRI Screening (Required): IMPLANTED DEVICE DOCUMENTATION IMPLANTED DEVICE DOCUMENTATION NOT FOUND Does the have any Cardiac Implants? None Does the have any implanted stimulators? None Does the [place] have cochlear implants? No Does the [place] have Cerebral aneurysm clip(s)? I don't know Does the have any shrapnel? I don't know If yes, where in your body? Please list other implants not listed above: MRI table has a weight limit of 551 lbs. [place]'s Weight: *212 lb [96.16 kg] (09/04/2024 05:19) Is this patient claustrophobic?: No REASON FOR EXAM:MULTIPLE SCLEROSIS (indicate suspected or established) PERTINENT PATIENT HISTORY: MS c/f for flare Risk factors for GADOLINIUM NEPHROGENIC SYSTEMIC SCLEROSIS: Report Status: Verified Date Reported: SEP 06, 2024 Date Verified: SEP 06, 2024 Electro Optics Engineer E-Sig: Report: MRI brain without and with [...] Staff: ARCENIO LEYVA, Staff Radiologist Verified by cook specialty for ARCENIO LEYVA /ARCENIO AV[facility]A [facility] Sep 06, 2024 01:40 PM MRI C SPINE W & W/ O CONTRAST(FURTHER SEQUENCES): LUIS MANUEL PERDOMO [id number] -1945 M Exm Date: SEP 06, 2024@13:40 Req Phys: AZARFRANCK WHEELER Pat Loc: 5-MED/TEL/09-07-2024@06:42 Img Loc: [facility] Service: [place] [address] (Case [id number] COMPLETE) MRI C SPINE W & W/O CONTRAST(FURT(MRI Detailed) CPT:94263 Contrast Media : Gadolinium Reason for Study: SEE CLINICAL HISTORY Pharmaceutical: GADOTERIDOL 279.3MG/ML 20ML INJ, 19ml Clinical History: STATUS OF PLAIN FILMS:Not performed (Provide justification for MR W/O prior plain films below.) MRI for MS MRI Screening (Required): IMPLANTED DEVICE DOCUMENTATION IMPLANTED DEVICE DOCUMENTATION NOT FOUND Does the have any Cardiac Implants? None Does the [place] have any implanted stimulators? None Does the have cochlear implants? No Does the [place] have Cerebral aneurysm clip(s)? I don't know [...] 07, 2024 Date Verified: SEP 07, 2024 Electro Optics Engineer E-Sig: Report: EXAMINATION: MRI OF THE CERVICAL [...] Interpreting Staff: HUANG TAI, Radiologist Verified by cook specialty for HUANG TAI /HUANG WHEATLEY-Sav [facility] Sep 03, 2024 10:45 AM CHEST SINGLE(1) EW: LUIS MANUEL PERDOMO [id number] -1945 M Ex Date: SEP 03, 2024@10:45 Req Phys: FRANCK TURNER Pat Loc: 5-MED/TEL/09-03-2024@10:56 Img Loc: CDD RADIOLOGY Service: [place] [address] (Case [id number] COMPLETE)CHEST SINGLE(1) VIEW (RAD Detailed) CPT:06229 Proc Modifiers : PORTABLE EXAM Reason for Study: Eval volume status Clinical History: Report Status: Verified Date Reported: SEP 03, 2024 Date Verified: SEP 03, 2024 Electro Optics Engineer E-Sig: Report: EXAMINATION: SINGLE VIEW CHEST CLINICAL [...] Interpreting Staff: HUANG TAI, Radiologist Verified by cook specialty for HUANG TAI /HUANG WHEATLEY-CDD [facility] Aug 29, 2024 08:[address] HEAD W/O CONT: LUIS MANUEL PERDOMO [id number] -1945 M Exm Date: AUG 29, 2024@20:28 Req Phys: FELISA COLE Loc: ED/4P-12A (Req'g Loc) Img Loc: CT SCAN Service: [place] [address] (Case [id number] COMPLETE) CT HEAD W/O CONT (CT Detailed) CPT:77674 Reason for Study: SEE CLINICAL HISTORY Clinical History: REASON FOR SEND OUT: ATTENDING PHYSICIAN NAME: New transient neurological s/s - suspected TIA HISTORY/REASON FOR EXAM: confusion Report Status: Verified Date Reported: AUG 29, 2024 Date Verified: AUG 29, 2024 Electro Optics Engineer E-Sig: Report: HISTORY confusion COMPARISON No prior [...] Staff: ABDIRAHMAN CROW, Staff Physician Verified by cook specialty for ABDIRAHMAN CROW /GUERITA CROW,ABDIRAHMAN [facility] Pathology Reports: +/- 30 days of the [...] the Encounter. The data comes from all [place] treatment facilities. Date/Time Pathology Report Provider Source Sep 03, 2024 01:35 PM LR MICROBIOLOGY RE PORT: Reporting Lab: [facility] [CLIA# [id number]] [address] [place] [id number] Accession [UID]: [id number] [[id number]] Received: Sep 03, 2024@14:02 Collection sample: URINE, [...] =--=--=--=--=--=-- Performing Laboratory: Bacteriology Report Performed By: [facility] [CLIA# [id number]] [address] [place], [place] [id number] [facility]RES[facility] Sep 02, 2024 06:00 PM LR MICROBIOLOGY RE PORT: Reporting Lab: [facility] [IA# [id number]] [address] [place], [place] [id number] Accession [UID]: [id number] [[id number]] Received: Sep 02, 2024@18:07 Collection sample: BLD CULTURE BOTTLES Collection date: Sep 02, 2024 18:00 Site/Specimen: BLOOD Provider: FRANCK TURNER Comment on specimen: L HAND Test(s) ordered: CULTURE, BLOOD................ completed: Sep 08, 2024 * BACTERIOLOGY FINAL REPORT => Sep 08, 2024 08:25 TECH CODE: [id number] Bacteriology Remark(s): Blood culture status=NO GROWTH (unless notified otherwise) 09/03/2024 AEROBIC: NO GROWTH ANAEROBIC: NO GROWTH =--=--=--=--=--=--=--=--=--=-- =--=--=--=--=--=--=--=--=--=-- =--=--=--=--=--=-- Performing Laboratory: Bacteriology Report Performed By: [facility] [CLIA# [id number]] [address] [place], [place] [id number] MAGDY CALABRESE [facility] Aug 29, 2024 10:18 PM LR MICROBIOLOGY RE PORT: Reporting Lab: [facility] [CLIA# [id number]] [address] [place], [place] [id number] Accession [UID]: [id number] [[id number]] Received: Aug 29, 2024@22:18 Collection sample: URINE, CLEAN CATCH Collection date: Aug 29, 2024 22:18 Site/Specimen: URINE Provider: FELISA COLE Test(s) ordered: CULTURE, URINE................ completed: Aug 31, 2024 09:51 * BACTERIOLOGY FINAL REPORT => Aug 31, 2024 09:51 TECH CODE: [id number] Bacteriology Remark(s): NO GROWTH 08/30/2024 <10,000 CFU/ML. 08/31/2024 =--=--=--=--=--=--=--=--=--=-- =--=--=--=--=--=--=--=--=--=-- =--=--=--=--=--=-- Performing Laboratory: Bacteriology Report Performed By: [facility] [CLIA# [id number]] [address] [place] [address] MAGDY CALABRESE-MALKA [facility]
--- OUTSIDE RECORDS SUMMARY | 2024-09-03 05:15 | XMS_ITS ---
AL DAILY HOSPITALIZATION DATA 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 Name Role Phone YULISSA HENDERSON Primary Care [...] PLAN F Mar 24, 2014 PLAN F [id number] LUIS MANUEL PERDOMO PATIENT [facility] [place] [facility] PREFERRED PROVIDER ORGANIZAT ION (PPO) [facility] SLE Sep 21, 2012 [id number] LUIS MANUEL PERDOMO PATIENT [employer] ([id number]) PRESCRIPT ION WL3A Sep 21, 2012 [id number] LUIS MANUEL PERDOMO PATIENT MEDICARE (WNR) MEDICARE (M) PART B Sep 21, 2012 PART B [id number] NOEMI PERDOMO PATIENT MEDICARE (WNR) MEDICARE (M) PART A Jan 22, 2011 PART A [id number] LEANNE, NOEMI PATIENT MEDICARE PART D (WNR) MEDICARE (M) PART D Mar 24, 2014 PART D [id number] LUIS MANUEL PERDOMO PATIENT Selected Encounter This section includes the information on record at [place] for the Encounter. Date/Time Encounter Type Encounter Description Reason Pro vider Source Sep 03, 2024 09:15 AM Inpatient Visit DAILY HOSPITALIZATION DATA [facility] Encounter Template Text not used by [place] Plan of Treatment: Future Appointments (+ 6 months) and Future Tests (+/- 45 days) The Plan of Treatment section includes future care activities for the patient from all [place] [facility]. This section includes future appointments and future orders which are active, pending or scheduled. Future Appointments This section includes appointments that were scheduled to occur 6 months from the date of the Encounter, up to a maximum of 20 appointments. The data comes from all [place] treatment facilities. Appointment Date/Time Appointment Type Appointme nt Facility Name Sep 13, 2024 08:00 AM AMBULATORY - NONE [facility] Sep 30, 2024 01:30 PM AMBULATORY - SURGERY [facility] Active, Pending, and Scheduled Orders This section includes a listing of several types of active, pending, and scheduled orders, including clinic medications orders, diagnostic test orders, procedure orders and consult orders; where the start date of the order is 45 days before the date of the Encounter or 45 days after the date of theEncounter. The data comes from all [facility] facilities. Test Date/Time Test Type Test Details Facility Name Sep 13, 2024 01:33 PM Consult Order [facility] Cons Manager Parking's Choice [facility] Lab Results: +/- 30 days of the encounter This section includes the Chemistry and Hematology Lab Results on record with [place] for the patient. Radiology Reports and Pathology Reports are provided separately, in subsequent sections. Lab Results This section contains the Chemistry/Hematology Results that were resulted 30 days before or 30 daysafter the date of the Encounter. Date/Time Source Result Type Result - Unit Interpretation Reference Range Specimen Type Comment Sep 09, 2024 12:16 PM [facility] GLUCOSE-HAND MONITOR CAPILLARY Specimen Type: CAPILLARY Comment: Test performed by: [id number] Meter #: [id number] Ordering Provider: FRANCK TURNER Report Released Date/Time: Sep 09, 2024 12:33 PM Reporting Lab: [address] [address] Performing Lab: [address] [address] GLUCOSE-HAND MONITOR 116 mg/dL H Sep 09, 2024 06:07 AM [facility] GLUCOSE-HAND MONITOR CAPILLARY Specime n Type: CAPILLARY Comment: Test performed by: [id number] Meter #: [id number] Ordering Provider: FRANCK TURNER Report Released Date/Time: Sep 09, 2024 08:17 AM Reporting Lab: [address] [address] Performing Lab: [address] [address] GLUCOSE-HAND MONITOR 112 mg/dL H Sep 08, 2024 09:13 PM [facility] GLUCOSE-HAND MONITOR CAPILLARY Specime n Type: CAPILLARY Comment: Test performed by: [id number] Meter #: [id number] Ordering Provider: FRANCK TURNER Report Released Date/Time: Sep 08, 2024 09:31 PM Reporting Lab: [address] [address] Performing Lab: [address] [address] GLUCOSE-HAND MONITOR 107 mg/dL H Sep 08, 2024 03:49 PM [facility] GLUCOSE-HAND MONITOR CAPILLARY Specime n Type: CAPILLARY Comment: AAMIR RN notified Test performed by: [id number] Meter #: [id number] Ordering Provider: FRANCK TURNER Report Released Date/Time: Sep 08, 2024 04:33 PM Reporting Lab: [address] [address] Performing Lab: [address] [address] GLUCOSE-HAND MONITOR 162 mg/dL H Sep 08, 2024 11:43 AM [facility] GLUCOSE-HAND MONITOR CAPILLARY Specime n Type: CAPILLARY Comment: AAMIR RN notified Test performed by: [id number] Meter #: [id number] Ordering Provider: FRANCK TURNER Report Released Date/Time: Sep 08, 2024 12:03 PM Reporting Lab: [address] [address] Performing Lab: [address] [address] GLUCOSE-HAND MONITOR 133 mg/dL H Sep 08, 2024 06:13 AM [facility] GLUCOSE-HAND MONITOR CAPILLARY Specime n Type: CAPILLARY Comment: Test performed by: [id number] Meter #: [id number] Ordering Provider: FRANCK TURNER Report Released Date/Time: Sep 08, 2024 06:46 AM Reporting Lab: [address] [address] Performing Lab: [address] [address] GLUCOSE-HAND MONITOR 104 mg/dL H Sep 07, 2024 07:59 PM [facility] GLUCOSE-HAND MONITOR CAPILLARY Specime n Type: CAPILLARY Comment: Test performed by: [id number] Meter #: [id number] Ordering Provider: FRANCK TURNER Report Released Date/Time: Sep 07, 2024 09:05 PM Reporting Lab: [address] [address] Performing Lab: [address] [address] GLUCOSE-HAND MONITOR 107 mg/dL H Sep 07, 2024 04:39 PM [facility] GLUCOSE-HAND MONITOR CAPILLARY Specime n Type: CAPILLARY Comment: Test performed by: [id number] Meter #: [id number] Ordering Provider: FRANCK TURNER Report Released Date/Time: Sep 07, 2024 05:09 PM Reporting Lab: [address] [address] Performing Lab: [address] [address] GLUCOSE-HAND MONITOR 105 mg/dL H Sep 07, 2024 11:41 AM [facility] GLUCOSE-HAND MONITOR CAPILLARY Specime n Type: CAPILLARY Comment: Test performed by: [id number] Meter #: [id number] Ordering Provider: FRANCK TURNER Report Released Date/Time: Sep 07, 2024 12:41 PM Reporting Lab: [address] [address] Performing Lab: [address] [address] GLUCOSE-HAND MONITOR 144 mg/dL H Sep 07, 2024 05:56 AM [facility] GLUCOSE-HAND MONITOR CAPILLARY Specime n Type: CAPILLARY Comment: Test performed by: [id number] Meter #: [id number] Ordering Provider: FRANCK TURNER Report Released Date/Time: Sep 07, 2024 06:31 AM Reporting Lab: [address] [address] Performing Lab: [address] [address] GLUCOSE-HAND MONITOR 96 mg/dL Sep 06, 2024 08:10 PM [facility] GLUCOSE-HAND MONITOR CAPILLARY Specime n Type: CAPILLARY Comment: Test performed by: [id number] Meter #: [id number] Ordering Provider: FRANCK TURNER Report Released Date/Time: Sep 06, 2024 08:52 PM Reporting Lab: [address] [address] Performing Lab: [address] [address] GLUCOSE-HAND MONITOR 124 mg/dL H Sep 06, 2024 04:27 PM [facility] GLUCOSE-HAND MONITOR CAPILLARY Specime n Type: CAPILLARY Comment: Test performed by: [id number] Meter #: [id number] Ordering Provider: FRANCK TURNER Report Released Date/Time: Sep 06, 2024 05:15 PM Reporting Lab: [address] [address] Performing Lab: [address] [address] GLUCOSE-HAND MONITOR 107 mg/dL H Sep 06, 2024 12:12 PM [facility] GLUCOSE-HAND MONITOR CAPILLARY Specime n Type: CAPILLARY Comment: Test performed by: [id number] Meter #: [id number] Ordering Provider: FRANCK TURNER Report Released Date/Time: Sep 06, 2024 12:29 PM Reporting Lab: [address] [address] Performing Lab: [address] [address] GLUCOSE-HAND MONITOR 181 mg/dL H -Sep 06, 2024 06:13 AM [facility] GLUCOSE-HAND MONITOR CAPILLARY Specime n Type: CAPILLARY Comment: Test performed by: [id number] Meter #: [id number] Ordering Provider: FRANCK TURNER Report Released Date/Time: Sep 06, 2024 06:36 AM Reporting Lab: [address] [address] Performing Lab: [address] [address] GLUCOSE-HAND MONITOR 102 mg/dL H Sep 05, 2024 08:47 PM [facility] GLUCOSE-HAND MONITOR CAPILLARY Specime n Type: CAPILLARY Comment: Test performed by: [id number] Meter #: [id number] Ordering Provider: FRANCK TURNER Report Released Date/Time: Sep 06, 2024 02:13 AM Reporting Lab: [address] [address] Performing Lab: [address] [address] GLUCOSE-HAND MONITOR 103 mg/dL H Sep 05, 2024 04:40 PM [facility] GLUCOSE-HAND MONITOR CAPILLARY Specime n Type: CAPILLARY Comment: AAMIR RN notified Test performed by: [id number] Meter #: [id number] Ordering Provider: FRANCK TURNER Report Released Date/Time: Sep 05, 2024 05:11 PM Reporting Lab: [address] [address] Performing Lab: [address] [address] GLUCOSE-HAND MONITOR 113 mg/dL H Sep 05, 2024 12:06 PM [facility] GLUCOSE-HAND MONITOR CAPILLARY Specime n Type: CAPILLARY Comment: Test performed by: [id number] Meter #: [id number] Ordering Provider: FRANCK TURNER Report Released Date/Time: Sep 05, 2024 12:23 PM Reporting Lab: [address] [address] Performing Lab: [address] [address] GLUCOSE-HAND MONITOR 115 mg/dL H Sep 05, 2024 06:26 AM [facility] GLUCOSE-HAND MONITOR CAPILLARY Specime n Type: CAPILLARY Comment: AAMIR Correction Dose Test performed by: [id number] Meter #: [id number] Ordering Provider: FRANCK TURNER Report Released Date/Time: Sep 05, 2024 06:43 AM Reporting Lab: [address] [address] Performing Lab: [address] [address] GLUCOSE-HAND MONITOR 111 mg/dL H Sep 04, 2024 08:59 PM [facility] GLUCOSE-HAND MONITOR CAPILLARY Specime n Type: CAPILLARY Comment: AAMIR RN notified Test performed by: [id number] Meter #: [id number] Ordering Provider: FRANCK TURNER Report Released Date/Time: Sep 04, 2024 09:36 PM Reporting Lab: [address] [address] Performing Lab: [address] [address] GLUCOSE-HAND MONITOR 123 mg/dL H Sep 04, 2024 04:41 PM [facility] GLUCOSE-HAND MONITOR CAPILLARY Specime n Type: CAPILLARY Comment: AAMIR RN notified Test performed by: [id number] Meter #: [id number] Ordering Provider: FRANCK TURNER Report Released Date/Time: Sep 04, 2024 05:03 PM Reporting Lab: [address] [address] Performing Lab: [address] [address] GLUCOSE-HAND MONITOR 118 mg/dL H Sep 04, 2024 12:36 PM [facility] GLUCOSE-HAND MONITOR CAPILLARY Specime n Type: CAPILLARY Comment: AAMIR RN notified Test performed by: [id number] Meter #: [id number] Ordering Provider: FRANCK TURNER Report Released Date/Time: Sep 04, 2024 12:53 PM Reporting Lab: [address] [address] Performing Lab: [place] [address] GLUCOSE-HAND MONITOR 129 mg/dL H 71-99 Sep 04, 2024 12:03 PM [facility] RESPIRATORY VIRUS PANEL (BIOFIRE) NASOPHARYN X Specimen Type: NASOPHARYNX Comment: ~For Test: RESPIRATORY VIRUS PANEL (BIOFIRE) ~ORDER READ BACK TO: FRANCK TURNER 09/04/24@11:30 Ordering Provider: FRANCK TURNER Report Released Date/Time: Sep 04, 2024 11:33 AM Reporting Lab: [place] [phone] Performing Lab: [place] [phone] ADENOVIRUS (BIOFIRE) Not Detected -Not D etected [...] -Not Detected Sep 04, 2024 06:55 AM [facility] MAGNESIUM PLASMA Specimen Type: PLASM [...] 03, 2024 11:10 AM Reporting Lab: [facility] [address] [facility] [address] Performing Lab: [place] [id number] [facility] [address] MAGNESIUM 1.8 mg/dL 1.6-2.6 Sep 04, 2024 06:55 AM [facility] PANEL 1 PLASMA Specimen Type: [...] Sep 03, 2024 11:10 AM Reporting Lab: [address] [address] Performing Lab: [address] CREATININE 0.75 mg/dL 0.72-1.25 UREA NITROGEN 13 mg/dL 9-25 GLUCOSE 105 mg/dL H 74-100 SODIUM 128 mmol/L L 136-145 POTASSIUM 3.9 mmol/L 3.5-5.1 CHLORIDE 99 mmol/L 98-107 CO2 21 mmol/L L 22-29 CALCIUM 8.0 mg/dL L 8.4-10.2 ANION GAP 8 meq/L 3-19 eGFR (CKD-EPI) >90 Sep 04, 2024 06:02 AM [facility] GLUCOSE-HAND MONITOR CAPILLARY Specime n Type: CAPILLARY Comment: Test performed by: [id number] Meter #: [id number] Ordering Provider: FRANCK TURNER Report Released Date/Time: Sep 04, 2024 06:28 AM Reporting Lab: [address] Performing Lab: [address] GLUCOSE-HAND MONITOR 114 mg/dL H 71-99 Sep 03, 2024 05:19 PM [facility] GLUCOSE-HAND MONITOR CAPILLARY Specime n Type: CAPILLARY Comment: Test performed by: [id number] Meter #: [id number] Ordering Provider: FRANCK TURNER Report Released Date/Time: Sep 03, 2024 05:37 PM Reporting Lab: [address] Performing Lab: [address] [address] GLUCOSE-HAND MONITOR 124 mg/dL H 71-99 Sep 03, 2024 04:41 PM [facility] GLUCOSE-HAND MONITOR CAPILLARY Specime n Type: CAPILLARY Comment: Test performed by: [id number] Meter #: [id number] Ordering Provider: FRANCK TURNER Report Released Date/Time: Sep 03, 2024 06:09 PM Reporting Lab: [address] [address] Performing Lab: [address] [address] GLUCOSE-HAND MONITOR 112 mg/dL H 71-99 Sep 03, 2024 01:35 PM [facility] CREATININE URINE Specimen Type: URINE Comment: ~Altered mental status with no identifiable cause Ordering Provider: FRANCK TURNER Report Released Date/Time: Sep 02, 2024 04:44 PM Reporting Lab: [facility] [address] [place] [address] Performing Lab: [address] [address] CREATININE 150.9 mg/dL Sep 03, 2024 01:35 PM [facility] URINE LYTES URINE Specimen Type : URINE Comment: ~Altered mental status with no identifiable cause Ordering Provider: FRANCK TURNER Report Released Date/Time: Sep 02, 2024 04:44 PM Reporting Lab: [address] [address] Performing Lab: [address] [address] SODIUM 130 mmol/L POTASSIUM 47.6 mmol/L CHLORIDE 137 mmol/L Sep 03, 2024 01:35 PM [facility] UREA NITROGEN URINE Specimen Type : URINE Comment: ~Altered mental status with no identifiable cause Ordering Provider: FRANCK TURNER Report Released Date/Time: Sep 02, 2024 04:44 PM Reporting Lab: [address] [address] Performing Lab: [address] [address] UREA NITROGEN 320 mg/dL Sep 03, 2024 01:35 PM [facility] OSMOLALITY URINE Specimen Type: URINE Comment: ~Altered mental status with no identifiable cause Ordering Provider: FRANCK TURNER Report Released Date/Time: Sep 02, 2024 04:44 PM Reporting Lab: [address] [address] Performing Lab: [address] [address] OSMOLALITY 522 mosm/kg 38-1400 Sep 03, 2024 01:35 PM [facility] URINALYSIS WITH REFLEX TO CULTURE URINE Specimen Type: URINE Comment: ~Altered mental status with no identifiable cause Ordering Provider: FRANCK TURNER Report Released Date/Time: Sep 02, 2024 04:44 PM Reporting Lab: [address] [address] Performing Lab: [address] [address] URINE COLOR Yellow Colorless-Yellow APPEARANCE CLOUDY H [...] H 0-28 Sep 03, 2024 11:58 AM [facility] GLUCOSE-HAND MONITOR CAPILLARY Specime n Type: CAPILLARY Comment: AAMIR RN notified Test performed by: [id number] Meter #: [id number] Ordering Provider: FRANCK TURNER Report Released Date/Time: Sep 03, 2024 12:15 PM Reporting Lab: [address] [address] Performing Lab: [address] [address] GLUCOSE-HAND MONITOR 135 mg/dL H Sep 03, 2024 07:09 AM [facility] GLUCOSE-HAND MONITOR CAPILLARY Specime n Type: CAPILLARY Comment: Test performed by: [id number] Meter #: [id number] Ordering Provider: FRANCK TURNER Report Released Date/Time: Sep 03, 2024 07:26 AM Reporting Lab: [address] [address] Performing Lab: [address] [address] GLUCOSE-HAND MONITOR 120 mg/dL H -Sep 03, 2024 07:05 AM [facility] MAGNESIUM PLASMA Specimen Type: PLASM [...] Sep 02, 2024 04:29 PM Reporting Lab: [address] [address] Performing Lab: [address] [address] MAGNESIUM 1.7 mg/dL 1.6-2.6 Sep 03, 2024 07:05 AM [facility] CBC/PLT BLOOD Specimen Type: BLOOD No comment entered. Ordering Provider: FRANCK TURNER Report Released Date/Time: Sep 02, 2024 04:29 PM Reporting Lab: [facility] [address] [facility] [address] Performing Lab: [address] [address] WBC 6.9 10*3/uL 5.0-10.0 RBC 3.48 10*6/uL L 4.6-6.2 HGB 9.5 g/dL L 14.0-18.0 HCT 29.1 L 42.0-52.0 MCV 83.6 fL 80.0-94.0 MCH 27.3 pg 27.0-31.0 MCHC 32.6 g/dL 32.0-36.0 PLT 258 10*3/uL 150-450 MPV 10.3 fL 9.0-13.1 RDW 14.8 11.0-16.0 NRBC 0.0 0.0-0.0 Sep 03, 2024 07:05 AM [facility] PANEL 1 PLASMA Specimen Type: [...] Sep 02, 2024 04:29 PM Reporting Lab: [address] [address] Performing Lab: [address] [address] CREATININE 0.82 mg/dL 0.72-1.25 UREA NITROGEN 12 mg/dL 9-25 GLUCOSE 109 mg/dL H 74-100 SODIUM 129 mmol/L L 136-145 POTASSIUM 4.2 mmol/L 3.5-5.1 CHLORIDE 99 mmol/L 98-107 CO2 21 mmol/L L 22-29 CALCIUM 8.1 mg/dL L 8.4-10.2 ANION GAP 9 meq/L 3-19 eGFR (CKD-EPI) 90 Sep 03, 2024 07:05 AM [facility] GLYCOHEMOGLOBIN BLOOD Specimen Type: BLOOD Comment: Prediabetes: 5.7%-6.4% Diabetes: >= 6.5% [facility] guidelines for A1c interpretation: Glycemic control targets are based on Shared Decision Making between clinicians and patients. Criteria used to establish an A1c target recommendation can be found at https://www.ga.gov/qualityandpatientsafety/ and include the use of result accuracy [...] 8.73 and 9.27. Ref: https://ngsp.org/CAPdata.asp. The in-house Locq[employer]-Seeker Wireless D-100 analyzer has a historical CV <= 2%. Contact the laboratory for further performance characteristics of this assay. Ordering Provider: FRANCK TURNER Report Released Date/Time: Sep 02, 2024 04:29 PM Reporting Lab: [address] [address] Performing Lab: [place] [phone] GLYCOHEMOGLOBIN 5.6 4.4-5.6 Sep 03, 2024 07:05 AM [facility] OSMOLALITY SERUM Specimen Type: SERUM No comment entered. Ordering Provider: FRANCK TURNER Report Released Date/Time: Sep 02, 2024 04:44 PM Reporting Lab: [address] [address] Performing Lab: [address] [address] OSMOLALITY 271 mosm/kg L 280-300 Sep 02, 2024 08:15 PM [facility] GLUCOSE-HAND MONITOR CAPILLARY Specime n Type: CAPILLARY Comment: AAMIR DEXTER notified Test performed by: [id number] Meter #: [id number] Ordering Provider: FRANCK TURNER Report Released Date/Time: Sep 02, 2024 08:57 PM Reporting Lab: [address] [address] Performing Lab: [address] [address] GLUCOSE-HAND MONITOR 126 mg/dL H 71-99 Sep 02, 2024 06:10 PM [facility] MRSA SURVL NARES DNA NARES [...] Sep 02, 2024 05:12 PM Reporting Lab: [address] [address] Performing Lab: [address] [address] MRSA SURVL NARES DNA Negative Negative Sep 02, 2024 05:36 PM [facility] GLUCOSE-HAND MONITOR CAPILLARY Specime n Type: CAPILLARY Comment: Test performed by: [id number] Meter #: [id number] Ordering Provider: FRANCK TURNER Report Released Date/Time: Sep 02, 2024 05:53 PM Reporting Lab: [address] [address] Performing Lab: [address] [address] GLUCOSE-HAND MONITOR 127 mg/dL H 71-99 Aug 29, 2024 10:04 PM [facility] URINALYSIS WITH REFLEX TO CULTURE URINE Specimen Type: URINE Comment: ~For Test: URINALYSIS WITH REFLEX TO CULTURE ~REORDER Ordering Provider: FELISA COLE Report Released Date/Time: Aug 29, 2024 09:36 PM Reporting Lab: [address] [address] Performing Lab: [address] [address] URINE COLOR Yellow Colorless-Yellow APPEARANCE Clear Clear [...] 0-28 Aug 29, 2024 08:32 [facility] SENSITIVITY TROPONIN I PLASMA Specimen [...] Aug 29, 2024 07:55 PM Reporting Lab: [address] [address] Performing Lab: [address] [address] HIGH SENSITIVITY TROPONIN I 7 4-35 Aug 29, 2024 08:32 PM [facility] CBC/PLT BLOOD Specimen Type: BLOOD No comment entered. Ordering Provider: FELISA COLE Report Released Date/Time: Aug 29, 2024 07:55 PM Reporting Lab: [address] [address] Performing Lab: [address] [address] WBC 11.2 10*3/uL H 5.0-10.0 RBC 3.97 10*6/uL L 4.6-6.2 HGB 10.9 g/dL L 14.0-18.0 HCT 33.5 L 42.0-52.0 MCV 84.4 fL 80.0-94.0 MCH 27.5 pg 27.0-31.0 MCHC 32.5 g/dL 32.0-36.0 PLT 230 10*3/uL 150-450 MPV 10.2 fL 9.0-13.1 RDW 14.6 11.0-16.0 NRBC 0.0 0.0-0.0 Aug 29, 2024 08:32 [facility] Specimen Type: PLASM [...] Aug 29, 2024 07:55 PM Reporting Lab: [address] [address] Performing Lab: [address] [address] CREATININE 0.85 mg/dL 0.72-1.25 UREA NITROGEN 15 [...] 18 /min 93 % 0 [place] [facility] Sep 03, 2024 04:38 PM 98.5 F 81 /min 129/76 mm[Hg] 15 /min 94 % [facility] Sep 03, 2024 09:07 AM 98.0 F 94 /min 121/71 mm[Hg] 15 /min 90 % 0 [place] [facility] Sep 03, 2024 06:13 AM 217.5 lb 32 [place] [facility] Sep 03, 2024 04:41 AM 98.9 F 92 /min 124/71 mm[Hg] 20 /min 91 % 0 [place] Advance Directives: All historical and current Section Date Range: From patient's date of to the date document was created. This section includes ALL of a patient's completed or amended [place] Advance and Rescinded Directives. The entries below indicate that a directive exists for the patient, but an actual copy is not included with this document. The data comes from all [place] facilities. Date Advance Directives Provider Source Mar 08, 2024 ADVANCE DIRECTIVE DISCUSSION [facility] Radiology Reports: +/- 30 days of the [...] the Encounter. The data comes from all [place] treatment facilities. Date/Time Radiology Report Provider Source Sep 06, 2024 01:40 PM MRI BRAIN W & W/O: LUIS MANUEL PERDOMO [id number] -1945 M Exm Date: SEP 06, 2024@13:40 Req Phys: FRANCK TURNERSav [facility] Loc: 5-MED/TEL/09-06-2024@19:09 Img Loc: [facility] Service: [place] [address] (Case [id number] COMPLETE) MRI BRAIN W & W/O (MRI Detailed) CPT:36092 Contrast Media : Gadolinium Reason for Study: SEE CLINICAL HISTORY Pharmaceutical: GADOTERIDOL 279.3MG/ML 20ML INJ, 19ml Clinical History: MRI Screening (Required): IMPLANTED DEVICE DOCUMENTATION IMPLANTED DEVICE DOCUMENTATION NOT FOUND Does the have any Cardiac Implants? None Does the have any implanted stimulators? None Does the [place] have cochlear implants? No Does the [place] have Cerebral aneurysm clip(s)? I don't know Does the have any shrapnel? I don't know If yes, where in your body? Please list other implants not listed above: MRI table has a weight limit of 551 lbs. [place]'s Weight: *212 lb [96.16 kg] (09/04/2024 05:19) Is this patient claustrophobic?: No REASON FOR EXAM:MULTIPLE SCLEROSIS (indicate suspected or established) PERTINENT PATIENT HISTORY: MS c/f for flare Risk factors for GADOLINIUM NEPHROGENIC SYSTEMIC SCLEROSIS: Report Status: Verified Date Reported: SEP 06, 2024 Date Verified: SEP 06, 2024 Penology Professor E-Sig: Report: MRI brain without and with [...] Staff: ARCENIO LEYVA, Staff Radiologist Verified by medical or surgical instrument maker for ARCENIO LEYVA /ARCENIO AVILA AAMIRWILSON-CDD [facility] Sep 06, 2024 01:40 PM MRI C SPINE W & W/ O CONTRAST(FURTHER SEQUENCES): LUIS MANUEL PERDOMO [id number] -[id number] M Exm Date: SEP 06, 2024@13:40 Req Phys: AZARFRANCK WHEELER Pat Loc: 5-MED/TEL/09-07-2024@06:42 Img Loc: [facility] Service: [place] [address] (Case [id number] COMPLETE) MRI C SPINE W & W/O CONTRAST(FURT(MRI Detailed) CPT:08576 Contrast Media : Gadolinium Reason for Study: SEE CLINICAL HISTORY Pharmaceutical: GADOTERIDOL 279.3MG/ML 20ML INJ, 19ml Clinical History: STATUS OF PLAIN FILMS:Not performed (Provide justification for MR W/O prior plain films below.) MRI for MS MRI Screening (Required): IMPLANTED DEVICE DOCUMENTATION IMPLANTED DEVICE DOCUMENTATION NOT FOUND Does the have any Cardiac Implants? None Does the [place] have any implanted stimulators? None Does the have cochlear implants? No Does the [place] have Cerebral aneurysm clip(s)? I don't know [...] 07, 2024 Date Verified: SEP 07, 2024 Penology Professor E-Sig: Report: EXAMINATION: MRI OF THE CERVICAL [...] Interpreting Staff: HUANG TAI, Radiologist Verified by medical or surgical instrument maker for HUANG TAI /HUANG WHEATLEY-[facility] Sep 03, 2024 10:45 AM CHEST SINGLE(1) EW: LUIS MANUEL PERDOMO [id number] -1945 M Ex Date: SEP 03, 2024@10:45 Req Phys: FRANCK TURNER Pat Loc: 5-MED/TEL/09-03-2024@10:56 Img Loc: CDD RADIOLOGY Service: [place] [address] (Case [id number] COMPLETE)CHEST SINGLE(1) VIEW (RAD Detailed) CPT:51992 Proc Modifiers : PORTABLE EXAM Reason for Study: Eval volume status Clinical History: Report Status: Verified Date Reported: SEP 03, 2024 Date Verified: SEP 03, 2024 Penology Professor E-Sig: Report: EXAMINATION: SINGLE VIEW CHEST CLINICAL [...] Interpreting Staff: HUANG TAI, Radiologist Verified by medical or surgical instrument maker for HUANG TAI /HUANG WHEATLEY-[facility] Aug 29, 2024 08:[address] HEAD W/O CONT: LUIS MANUEL PERDOMO [id number] -1945 M Exm Date: AUG 29, 2024@20:28 Req Phys: FELISA COLE Loc: ED/4P-12A (Req'g Loc) Img Loc: CT SCAN Service: [place] [address] (Case [id number] COMPLETE) CT HEAD W/O CONT (CT Detailed) CPT:58985 Reason for Study: SEE CLINICAL HISTORY Clinical History: REASON FOR SEND OUT: ATTENDING PHYSICIAN NAME: New transient neurological s/s - suspected TIA HISTORY/REASON FOR EXAM: confusion Report Status: Verified Date Reported: AUG 29, 2024 Date Verified: AUG 29, 2024 Penology Professor E-Sig: Report: HISTORY confusion COMPARISON No prior [...] Staff: ABDIRAHMAN CROW, Staff Physician Verified by medical or surgical instrument maker for ABDIRAHMAN CROW /GUERITA CROW,ABDIRAHMAN RUBI-[facility] Pathology Reports: +/- 30 days of the [...] the Encounter. The data comes from all [place] treatment facilities. Date/Time Pathology Report Provider Source Sep 03, 2024 01:35 PM LR MICROBIOLOGY RE PORT: Reporting Lab: [facility] [CLIA# [id number]] [address] [place] [id number] Accession [UID]: [id number] [[id number]] Received: Sep 03, 2024@14:02 Collection sample: URINE, [...] By: [facility] [CLIA# [id number]] [address] [place], [place] [id number] MAGDY CALABRESE [facility] Sep 02, 2024 06:00 PM LR MICROBIOLOGY RE PORT: Reporting Lab: [facility] [IA# [id number]] [address] [place], [place] [id number] Accession [UID]: [id number] [[id number]] Received: Sep 02, 2024@18:07 Collection sample: BLD CULTURE BOTTLES Collection date: Sep 02, 2024 18:00 Site/Specimen: BLOOD Provider: FRANCK TURNER Comment on specimen: L HAND Test(s) ordered: CULTURE, BLOOD................ completed: Sep 08, 2024 * BACTERIOLOGY FINAL REPORT => Sep 08, 2024 08:25 TECH CODE: [id number] Bacteriology Remark(s): Blood culture status=NO GROWTH (unless notified otherwise) 09/03/2024 AEROBIC: NO GROWTH ANAEROBIC: NO GROWTH =--=--=--=--=--=--=--=--=--=-- =--=--=--=--=--=--=--=--=--=-- =--=--=--=--=--=-- Performing Laboratory: Bacteriology Report Performed By: [facility] [CLIA# [id number]] [address] [place], [place] [id number] MAGDY CALABRESE [facility] Aug 29, 2024 10:18 PM LR MICROBIOLOGY RE PORT: Reporting Lab: [facility] [CLIA# [id number]] [address] [place], [place] [id number] Accession [UID]: [id number] [[id number]] Received: Aug 29, 2024@22:18 Collection sample: URINE, CLEAN CATCH Collection date: Aug 29, 2024 22:18 Site/Specimen: URINE Provider: FELISA COLE Test(s) ordered: CULTURE, URINE................ completed: Aug 31, 2024 09:51 * BACTERIOLOGY FINAL REPORT => Aug 31, 2024 09:51 TECH CODE: [id number] Bacteriology Remark(s): NO GROWTH 08/30/2024 <10,000 CFU/ML. 08/31/2024 =--=--=--=--=--=--=--=--=--=-- =--=--=--=--=--=--=--=--=--=-- =--=--=--=--=--=-- Performing Laboratory: Bacteriology Report Performed By: [facility] [CLIA# [id number]] [address] [place] [address] MAGDY CALABRESE-[facility]
--- OUTSIDE RECORDS SUMMARY | 2024-09-03 06:36 | XMS_ITS | Encounter Summary ---
Author Name [facility] Organization [facility] [place] Address [address] [place] [id number] Care Team Providers Care Wardrobe Supervisor Name Role Phone YULISSA HENDERSON Primary [...] PLAN F Mar 24, 2014 PLAN F [id number] LUIS MANUEL PERDOMO PATIENT [facility] BLUECARD PREFERRED PROVIDER ORGANIZAT ION (PPO) [facility] Sep 21, 2012 [id number] [phone] LUIS MANUEL PERDOMO PATIENT [facility] ([id number]) PRESCRIPT ION WL3A Sep 21, 2012 [id number] LUIS MANUEL PERDOMO PATIENT MEDICARE (WNR) MEDICARE (M) PART B Sep 21, 2012 PART B [id number] NOEMI PERDOMO PATIENT MEDICARE (WNR) MEDICARE (M) PART A Jan 22, 2011 PART A [id number] NOEMI PERDOMO PATIENT MEDICARE PART D (WNR) MEDICARE (M) PART D Mar 24, 2014 PART D [id number] LUIS MANUEL PERDOMO PATIENT Selected Encounter This section includes the information on record at [place] for the Encounter. Date/Time Encounter Type Encounter Description Reason Provider Source Sep 03, 2024 10:36 AM [facility] IP/OBS MODERATE 35 GENERAL INTERNAL MEDICINE [facility] Encounter Template Text not used by [place] Plan of Treatment: Future Appointments (+ 6 [...] 08:00 AM AMBULATORY - NONE [place] [facility] Sep 30, 2024 01:30 PM AMBULATORY - SURGERY [place] [facility] Active, Pending, and Scheduled Orders [...] Sep 13, 2024 01:33 PM Consult Order [facility] SKILLED HOME CARE Cons Scrap Drop Crane Operator's Choice [facility] Lab Results: +/- 30 days of the [...] Type Comment Sep 09, 2024 12:16 PM [facility] GLUCOSE-HAND MONITOR CAPILLARY Specimen Type: CAPILLARY Comment: Test performed by: [id number] Meter #: [id number] Ordering Provider: FRANCK TURNER Report Released Date/Time: Sep 09, 2024 12:33 PM Reporting Lab: [address] [address] Performing Lab: [address] [address] GLUCOSE-HAND MONITOR 116 mg/dL H Sep 09, 2024 06:07 AM [facility] GLUCOSE-HAND MONITOR CAPILLARY Specime n Type: CAPILLARY Comment: Test performed by: [id number] Meter #: [id number] Ordering Provider: FRANCK TURNER Report Released Date/Time: Sep 09, 2024 08:17 AM Reporting Lab: [address] [address] Performing Lab: [address] [address] GLUCOSE-HAND MONITOR 112 mg/dL H Sep 08, 2024 09:13 PM [facility] GLUCOSE-HAND MONITOR CAPILLARY Specime n Type: CAPILLARY Comment: Test performed by: [id number] Meter #: [id number] Ordering Provider: FRANCK TURNER Report Released Date/Time: Sep 08, 2024 09:31 PM Reporting Lab: [address] [address] Performing Lab: [address] [address] GLUCOSE-HAND MONITOR 107 mg/dL H Sep 08, 2024 03:49 PM [facility] GLUCOSE-HAND MONITOR CAPILLARY Specime n Type: CAPILLARY Comment: AAMIR RN notified Test performed by: [id number] Meter #: [id number] Ordering Provider: FRANCK TURNER Report Released Date/Time: Sep 08, 2024 04:33 PM Reporting Lab: [address] [address] Performing Lab: [address] [address] GLUCOSE-HAND MONITOR 162 mg/dL H Sep 08, 2024 11:43 AM [facility] GLUCOSE-HAND MONITOR CAPILLARY Specime n Type: CAPILLARY Comment: AAMIR RN notified Test performed by: [id number] Meter #: [id number] Ordering Provider: FRANCK TURNER Report Released Date/Time: Sep 08, 2024 12:03 PM Reporting Lab: [place] [phone] Performing Lab: [address] [address] GLUCOSE-HAND MONITOR 133 mg/dL H Sep 08, 2024 06:13 AM [facility] GLUCOSE-HAND MONITOR CAPILLARY Specime n Type: CAPILLARY Comment: Test performed by: [id number] Meter #: [id number] Ordering Provider: FRANCK TURNER Report Released Date/Time: Sep 08, 2024 06:46 AM Reporting Lab: [place] [phone] Performing Lab: [address] [address] GLUCOSE-HAND MONITOR 104 mg/dL H Sep 07, 2024 07:59 PM [facility] GLUCOSE-HAND MONITOR CAPILLARY Specime n Type: CAPILLARY Comment: Test performed by: [id number] Meter #: [id number] Ordering Provider: FRANCK TURNER Report Released Date/Time: Sep 07, 2024 09:05 PM Reporting Lab: [place] [phone] Performing Lab: [address] [address] GLUCOSE-HAND MONITOR 107 mg/dL H Sep 07, 2024 04:39 PM [facility] GLUCOSE-HAND MONITOR CAPILLARY Specime n Type: CAPILLARY Comment: Test performed by: [id number] Meter #: [id number] Ordering Provider: FRANCK TURNER Report Released Date/Time: Sep 07, 2024 05:09 PM Reporting Lab: [address] [address] Performing Lab: [address] [address] GLUCOSE-HAND MONITOR 105 mg/dL H Sep 07, 2024 11:41 AM [facility] GLUCOSE-HAND MONITOR CAPILLARY Specime n Type: CAPILLARY Comment: Test performed by: [id number] Meter #: [id number] Ordering Provider: FRANCK TURNER Report Released Date/Time: Sep 07, 2024 12:41 PM Reporting Lab: [place] [phone] Performing Lab: [place] [phone] GLUCOSE-HAND MONITOR 144 mg/dL H Sep 07, 2024 05:56 AM [facility] GLUCOSE-HAND MONITOR CAPILLARY Specime n Type: CAPILLARY Comment: Test performed by: [id number] Meter #: [id number] Ordering Provider: FRANCK TURNER Report Released Date/Time: Sep 07, 2024 06:31 AM Reporting Lab: [place] [phone] Performing Lab: [place] [phone] GLUCOSE-HAND MONITOR 96 mg/dL Sep 06, 2024 08:10 PM [facility] GLUCOSE-HAND MONITOR CAPILLARY Specime n Type: CAPILLARY Comment: Test performed by: [id number] Meter #: [id number] Ordering Provider: FRANCK TURNER Report Released Date/Time: Sep 06, 2024 08:52 PM Reporting Lab: [place] [phone] Performing Lab: [place] [phone] GLUCOSE-HAND MONITOR 124 mg/dL H Sep 06, 2024 04:27 PM [facility] GLUCOSE-HAND MONITOR CAPILLARY Specime n Type: CAPILLARY Comment: Test performed by: [id number] Meter #: [id number] Ordering Provider: FRANCK TURNER Report Released Date/Time: Sep 06, 2024 05:15 PM Reporting Lab: [place] [phone] Performing Lab: [place] [phone] GLUCOSE-HAND MONITOR 107 mg/dL H Sep 06, 2024 12:12 PM [facility] GLUCOSE-HAND MONITOR CAPILLARY Specime n Type: CAPILLARY Comment: Test performed by: [id number] Meter #: [id number] Ordering Provider: FRANCK TURNER Report Released Date/Time: Sep 06, 2024 12:29 PM Reporting Lab: [address] [address] Performing Lab: [address] [address] GLUCOSE-HAND MONITOR 181 mg/dL H Sep 06, 2024 06:13 AM [facility] GLUCOSE-HAND MONITOR CAPILLARY Specime n Type: CAPILLARY Comment: Test performed by: [id number] Meter #: [id number] Ordering Provider: FRANCK TURNER Report Released Date/Time: Sep 06, 2024 06:36 AM Reporting Lab: [place] [phone] Performing Lab: [place] [phone] GLUCOSE-HAND MONITOR 102 mg/dL H Sep 05, 2024 08:47 PM [facility] GLUCOSE-HAND MONITOR CAPILLARY Specime n Type: CAPILLARY Comment: Test performed by: [id number] Meter #: [id number] Ordering Provider: FRANCK TURNER Report Released Date/Time: Sep 06, 2024 02:13 AM Reporting Lab: [address] [address] Performing Lab: [address] [address] GLUCOSE-HAND MONITOR 103 mg/dL H Sep 05, 2024 04:40 PM [facility] GLUCOSE-HAND MONITOR CAPILLARY Specime n Type: CAPILLARY Comment: AAMIR RN notified Test performed by: [id number] Meter #: [id number] Ordering Provider: FRANCK TURNER Report Released Date/Time: Sep 05, 2024 05:11 PM Reporting Lab: [address] [address] Performing Lab: [address] [address] GLUCOSE-HAND MONITOR 113 mg/dL H Sep 05, 2024 12:06 PM [facility] GLUCOSE-HAND MONITOR CAPILLARY Specime n Type: CAPILLARY Comment: Test performed by: [id number] Meter #: [id number] Ordering Provider: FRANCK TURNER Report Released Date/Time: Sep 05, 2024 12:23 PM Reporting Lab: [address] [address] Performing Lab: [address] [address] GLUCOSE-HAND MONITOR 115 mg/dL H -Sep 05, 2024 06:26 AM [facility] GLUCOSE-HAND MONITOR CAPILLARY Specime n Type: CAPILLARY Comment: AAMIR Correction Dose Test performed by: [id number] Meter #: [id number] Ordering Provider: FRANCK TURNER Report Released Date/Time: Sep 05, 2024 06:43 AM Reporting Lab: [address] [address] Performing Lab: [address] GLUCOSE-HAND MONITOR 111 mg/dL H Sep 04, 2024 08:59 PM [facility] GLUCOSE-HAND MONITOR CAPILLARY Specime n Type: CAPILLARY Comment: AAMIR RN notified Test performed by: [id number] Meter #: [id number] Ordering Provider: FRANCK TURNER Report Released Date/Time: Sep 04, 2024 09:36 PM Reporting Lab: [address] [address] Performing Lab: [address] [address] GLUCOSE-HAND MONITOR 123 mg/dL H Sep 04, 2024 04:41 PM [facility] GLUCOSE-HAND MONITOR CAPILLARY Specime n Type: CAPILLARY Comment: AAMIR RN notified Test performed by: [id number] Meter #: [id number] Ordering Provider: FRANCK TURNER Report Released Date/Time: Sep 04, 2024 05:03 PM Reporting Lab: [address] [address] Performing Lab: [address] [address] GLUCOSE-HAND MONITOR 118 mg/dL H -Sep 04, 2024 12:36 PM [facility] GLUCOSE-HAND MONITOR CAPILLARY Specime n Type: CAPILLARY Comment: AAIMR RN notified Test performed by: [id number] Meter #: [id number] Ordering Provider: FRANCK TURNER Report Released Date/Time: Sep 04, 2024 12:53 PM Reporting Lab: [place] [phone] Performing Lab: [place] [address] GLUCOSE-HAND MONITOR 129 mg/dL H -Sep 04, 2024 12:03 PM [facility] RESPIRATORY VIRUS PANEL (BIOFIRE) NASOPHARYN X Specimen Type: NASOPHARYNX Comment: ~For Test: RESPIRATORY VIRUS PANEL (BIOFIRE) ~ORDER READ BACK TO: FRANCK TURNER 09/04/24@11:30 Ordering Provider: FRANCK TURNER Report Released Date/Time: Sep 04, 2024 11:33 AM Reporting Lab: [place] [phone] Performing Lab: [place] [phone] ADENOVIRUS (BIOFIRE) Not Detected -Not D etected [...] -Not Detected Sep 04, 2024 06:55 AM [facility] Specimen Type: PLASM A [...] Sep 03, 2024 11:10 AM Reporting Lab: [place] [id number] [facility] [address] Performing Lab: [address] [address] MAGNESIUM 1.8 mg/dL 1.6-2.6 Sep 04, 2024 06:55 AM [facility] PANEL 1 PLASMA Specimen Type: PLASM A [...] Sep 03, 2024 11:10 AM Reporting Lab: [address] [address] Performing Lab: [address] [address] CREATININE 0.75 mg/dL 0.72-1.25 UREA NITROGEN 13 mg/dL 9-25 GLUCOSE 105 mg/dL H 74-100 SODIUM 128 mmol/L L 136-145 POTASSIUM 3.9 mmol/L 3.5-5.1 CHLORIDE 99 mmol/L 98-107 CO2 21 mmol/L L 22-29 CALCIUM 8.0 mg/dL L 8.4-10.2 ANION GAP 8 meq/L 3-19 eGFR (CKD-EPI) >90 Sep 04, 2024 06:02 AM [facility] GLUCOSE-HAND MONITOR CAPILLARY Specime n Type: CAPILLARY Comment: Test performed by: [id number] Meter #: [id number] Ordering Provider: FRANCK TURNER Report Released Date/Time: Sep 04, 2024 06:28 AM Reporting Lab: [address] [address] Performing Lab: [address] [address] GLUCOSE-HAND MONITOR 114 mg/dL H 71-99 Sep 03, 2024 05:19 PM [facility] GLUCOSE-HAND MONITOR CAPILLARY Specime n Type: CAPILLARY Comment: Test performed by: [id number] Meter #: [id number] Ordering Provider: FRANCK TURNER Report Released Date/Time: Sep 03, 2024 05:37 PM Reporting Lab: [address] [address] Performing Lab: [address] [address] GLUCOSE-HAND MONITOR 124 mg/dL H 71-99 Sep 03, 2024 04:41 PM [facility] GLUCOSE-HAND MONITOR CAPILLARY Specime n Type: CAPILLARY Comment: Test performed by: [id number] Meter #: [id number] Ordering Provider: FRANCK TURNER Report Released Date/Time: Sep 03, 2024 06:09 PM Reporting Lab: [address] [address] Performing Lab: [address] [address] GLUCOSE-HAND MONITOR 112 mg/dL H 71-99 Sep 03, 2024 01:35 PM [facility] URINE LYTES URINE Specimen Type : URINE Comment: ~Altered mental status with no identifiable cause Ordering Provider: FRANCK TURNER Report Released Date/Time: Sep 02, 2024 04:44 PM Reporting Lab: [address] [address] Performing Lab: [address] [address] SODIUM 130 mmol/L POTASSIUM 47.6 mmol/L CHLORIDE 137 mmol/L Sep 03, 2024 01:35 PM [facility] CREATININE URINE Specimen Type: URINE Comment: ~Altered mental status with no identifiable cause Ordering Provider: FRANCK TURNER Report Released Date/Time: Sep 02, 2024 04:44 PM Reporting Lab: [address] [address] Performing Lab: [address] [address] CREATININE 150.9 mg/dL Sep 03, 2024 01:35 PM [facility] UREA NITROGEN URINE Specimen Type : URINE Comment: ~Altered mental status with no identifiable cause Ordering Provider: FRANCK TURNER Report Released Date/Time: Sep 02, 2024 04:44 PM Reporting Lab: [address] [address] Performing Lab: [address] [address] UREA NITROGEN 320 mg/dL Sep 03, 2024 01:35 PM [facility] URINALYSIS WITH REFLEX TO CULTURE URINE Specimen Type: URINE Comment: ~Altered mental status with no identifiable cause Ordering Provider: FRANCK TURNER Report Released Date/Time: Sep 02, 2024 04:44 PM Reporting Lab: [address] [address] Performing Lab: [address] [address] URINE COLOR Yellow Colorless-Yellow APPEARANCE CLOUDY H [...] 0-28 Sep 03, 2024 01:35 PM [facility] OSMOLALITY URINE Specimen Type: URINE Comment: ~Altered mental status with no identifiable cause Ordering Provider: FRANCK TURNER Report Released Date/Time: Sep 02, 2024 04:44 PM Reporting Lab: [place] [phone] Performing Lab: [place] [phone] OSMOLALITY 522 mosm/kg 38-1400 Sep 03, 2024 11:58 AM [facility] GLUCOSE-HAND MONITOR CAPILLARY Specime n Type: CAPILLARY Comment: AAMIR RN notified Test performed by: [id number] Meter #: [id number] Ordering Provider: FRANCK TURNER Report Released Date/Time: Sep 03, 2024 12:15 PM Reporting Lab: [address] [address] Performing Lab: [address] [address] GLUCOSE-HAND MONITOR 135 mg/dL H 71-99 Sep 03, 2024 07:09 AM [facility] GLUCOSE-HAND MONITOR CAPILLARY Specime n Type: CAPILLARY Comment: Test performed by: [id number] Meter #: [id number] Ordering Provider: FRANCK TURNER Report Released Date/Time: Sep 03, 2024 07:26 AM Reporting Lab: [address] [address] Performing Lab: [address] [address] GLUCOSE-HAND MONITOR 120 mg/dL H 71-99 Sep 03, 2024 07:05 AM [facility] CBC/PLT BLOOD Specimen Type: BLOOD No comment entered. Ordering Provider: FRANCK TURNER Report Released Date/Time: Sep 02, 2024 04:29 PM Reporting Lab: [place] [id number] [facility] [address] Performing Lab: [address] [address] WBC 6.9 10*3/uL 5.0-10.0 RBC 3.48 10*6/uL L 4.6-6.2 HGB 9.5 g/dL L 14.0-18.0 HCT 29.1 L 42.0-52.0 MCV 83.6 fL 80.0-94.0 MCH 27.3 pg 27.0-31.0 MCHC 32.6 g/dL 32.0-36.0 PLT 258 10*3/uL 150-450 MPV 10.3 fL 9.0-13.1 RDW 14.8 11.0-16.0 NRBC 0.0 0.0-0.0 Sep 03, 2024 07:05 AM [facility] MAGNESIUM PLASMA Specimen Type: PLASM A Comment: [...] Sep 02, 2024 04:29 PM Reporting Lab: [address] [address] Performing Lab: [address] [address] MAGNESIUM 1.7 mg/dL 1.6-2.6 Sep 03, 2024 07:05 AM [facility] PANEL 1 PLASMA Specimen Type: PLASM A [...] Sep 02, 2024 04:29 PM Reporting Lab: [address] [address] Performing Lab: [address] [address] CREATININE 0.82 mg/dL 0.72-1.25 UREA NITROGEN 12 mg/dL 9-25 GLUCOSE 109 mg/dL H 74-100 SODIUM 129 mmol/L L 136-145 POTASSIUM 4.2 mmol/L 3.5-5.1 CHLORIDE 99 mmol/L 98-107 CO2 21 mmol/L L 22-29 CALCIUM 8.1 mg/dL L 8.4-10.2 ANION GAP 9 meq/L 3-19 eGFR (CKD-EPI) 90 Sep 03, 2024 07:05 AM [facility] GLYCOHEMOGLOBIN BLOOD Specimen Type: BLOOD Comment: Prediabetes: 5.7%-6.4% Diabetes: >= 6.5% [facility] guidelines for A1c interpretation: Glycemic control [...] 8.73 and 9.27. Ref: https://ngsp.org/CAPdata.asp. The in-house [employer] D-100 analyzer has a historical CV <= 2%. Contact the laboratory for further performance characteristics of this assay. Ordering Provider: FRANCK TURNER Report Released Date/Time: Sep 02, 2024 04:29 PM Reporting Lab: [address] [address] Performing Lab: [address] [address] GLYCOHEMOGLOBIN 5.6 4.4-5.6 Sep 03, 2024 07:05 AM [facility] OSMOLALITY SERUM Specimen Type: SERUM No comment entered. Ordering Provider: FRANCK TURNER Report Released Date/Time: Sep 02, 2024 04:44 PM Reporting Lab: [address] [address] Performing Lab: [address] [address] OSMOLALITY 271 mosm/kg L 280-300 Sep 02, 2024 08:15 PM [facility] GLUCOSE-HAND MONITOR CAPILLARY Specime n Type: CAPILLARY Comment: AAMIR RN notified Test performed by: [id number] Meter #: [id number] Ordering Provider: FRANCK TURNER Report Released Date/Time: Sep 02, 2024 08:57 PM Reporting Lab: [address] [address] Performing Lab: [address] [address] GLUCOSE-HAND MONITOR 126 mg/dL H 71-99 Sep 02, 2024 06:10 PM [facility] MRSA SURVL NARES DNA NARES Specime n [...] Sep 02, 2024 05:12 PM Reporting Lab: [address] [address] Performing Lab: [address] [address] MRSA SURVL NARES DNA Negative Negative Sep 02, 2024 05:36 PM [facility] GLUCOSE-HAND MONITOR CAPILLARY Specime n Type: CAPILLARY Comment: Test performed by: [id number] Meter #: [id number] Ordering Provider: FRANCK TURNER Report Released Date/Time: Sep 02, 2024 05:53 PM Reporting Lab: [address] [address] Performing Lab: [address] [address] GLUCOSE-HAND MONITOR 127 mg/dL H 71-99 Aug 29, 2024 10:04 PM [facility] URINALYSIS WITH REFLEX TO CULTURE URINE Specimen Type: URINE Comment: ~For Test: URINALYSIS WITH REFLEX TO CULTURE ~REORDER Ordering Provider: FELISA COLE Report Released Date/Time: Aug 29, 2024 09:36 PM Reporting Lab: [address] [address] Performing Lab: [address] [address] URINE COLOR Yellow Colorless-Yellow APPEARANCE Clear Clear [...] 0-28 Aug 29, 2024 08:32 PM EL[facility]IA-Sav [facility] HIGH SENSITIVITY TROPONIN I PLASMA Specimen [...] Aug 29, 2024 07:55 PM Reporting Lab: [address] [address] Performing Lab: [address] [address] HIGH SENSITIVITY TROPONIN I 7 4-35 Aug 29, 2024 08:32 PM [facility] CBC/PLT BLOOD Specimen Type: BLOOD No comment entered. Ordering Provider: FELISA COLE Report Released Date/Time: Aug 29, 2024 07:55 PM Reporting Lab: [address] [address] Performing Lab: [address] [address] WBC 11.2 10*3/uL H 5.0-10.0 RBC 3.97 10*6/uL L 4.6-6.2 HGB 10.9 g/dL L 14.0-18.0 HCT 33.5 L 42.0-52.0 MCV 84.4 fL 80.0-94.0 MCH 27.5 pg 27.0-31.0 MCHC 32.5 g/dL 32.0-36.0 PLT 230 10*3/uL 150-450 MPV 10.2 fL 9.0-13.1 RDW 14.6 11.0-16.0 NRBC 0.0 0.0-0.0 Aug 29, 2024 08:32 [facility] Specimen Type: [...] Aug 29, 2024 07:55 PM Reporting Lab: [address] [address] Performing Lab: [address] [address] CREATININE 0.85 mg/dL 0.72-1.25 UREA NITROGEN 15 [...] 18 /min 93 % 0 [place] [facility] Sep 03, 2024 04:38 PM 98.5 F 81 /min 129/76 mm[Hg] 15 /min 94 % 0 [place] [facility] Sep 03, 2024 09:07 AM 98.0 F 94 /min 121/71 mm[Hg] 15 /min 90 % 0 [place] [facility] Sep 03, 2024 06:13 AM 217.5 lb 32 [place] [facility] Sep 03, 2024 04:41 AM 98.9 F 92 /min 124/71 mm[Hg] 20 /min 91 % 0 [place] [facility] Advance Directives: All historical and current [...] 08, 2024 ADVANCE DIRECTIVE DISCUSSION [facility] Radiology Reports: +/- 30 days of the [...] BRAIN W & W/O: LUIS MANUEL PERDOMO [id number] -1945 M Exm Date: SEP 06, 2024@13:40 Req Phys: FRANCK TURNER Faith Loc: 5-MED/TEL/09-06-2024@19:09 Img Loc: [facility] Service: [place] [address] (Case [id number] COMPLETE) MRI BRAIN W & W/O (MRI Detailed) CPT:36665 Contrast Media : Gadolinium Reason for Study: SEE CLINICAL HISTORY Pharmaceutical: GADOTERIDOL 279.3MG/ML 20ML INJ, 19ml Clinical History: MRI Screening (Required): IMPLANTED DEVICE DOCUMENTATION IMPLANTED DEVICE DOCUMENTATION NOT FOUND Does the Christopher have any Cardiac Implants? None Does the have any implanted stimulators? None Does the have cochlear implants? No Does the have Cerebral aneurysm clip(s)? I don't know Does the Christopher have any shrapnel? I don't know If [...] 06, 2024 Date Verified: SEP 06, 2024 Patient Service Coordinator E-Sig: Report: MRI brain without and with [...] Staff: ARCENIO LEYVA, Staff Radiologist Verified by water resources project manager for ARCENIO LEYVA /ARCENIO AVILA-[facility] Sep 06, 2024 01:40 PM MRI C SPINE W & W/ O CONTRAST(FURTHER SEQUENCES): LUIS MANUEL PERDOMO [id number] -1945 M Exm Date: SEP 06, 2024@13:40 Req Phys: FRANCK TURNERFRANNY Pat Loc: 5-MED/TEL/09-07-2024@06:42 Img Loc: [facility] Service: [place] [address] (Case [id number] COMPLETE) MRI C SPINE W & W/O CONTRAST(FURT(MRI Detailed) CPT:90065 Contrast Media : Gadolinium Reason for Study: [...] the have cochlear implants? No Does the Christopher have Cerebral aneurysm clip(s)? I don't know Does the have any shrapnel? I don't know If yes, where in your body? Please list other implants not listed above: MRI table has a weight limit of 551 lbs. Christopher's Weight: *212 lb [96.16 kg] (09/04/2024 05:19) Is this patient claustrophobic?: No REASON FOR EXAM: MULTIPLE SCLEROSIS (indicate suspected or established) PERTINENT PATIENT HISTORY: MS c/f flare Risk factors for GADOLINIUM NEPHROGENIC SYSTEMIC SCLEROSIS: Report Status: Verified Date Reported: SEP 07, 2024 Date Verified: SEP 07, 2024 Patient Service Coordinator E-Sig: Report: EXAMINATION: MRI OF THE CERVICAL [...] Interpreting Staff: HUANG TAI, Radiologist Verified by water resources project manager for HUANG TAI /HUANG WHEATLEY-Sav [facility] Sep 03, 2024 10:45 AM CHEST SINGLE(1) EW: LUIS MANUEL PERDOMO [id number] -1945 M Exm Date: SEP 03, 2024@10:45 Req Phys: FRANCK TURNER Pat Loc: 5-MED/TEL/09-03-2024@10:56 Img Loc: [facility] Service: [place] [address] (Case [id number] COMPLETE)CHEST SINGLE(1) VIEW (RAD Detailed) CPT:71233 Proc Modifiers : PORTABLE EXAM Reason for Study: Eval volume status Clinical History: Report Status: Verified Date Reported: SEP 03, 2024 Date Verified: SEP 03, 2024 Patient Service Coordinator E-Sig: Report: EXAMINATION: SINGLE VIEW CHEST CLINICAL [...] Interpreting Staff: HUANG TAI, Radiologist Verified by water resources project manager for HUANG TAI /HUANG WHEATLEY-D [facility] Aug 29, 2024 08:[address] HEAD W/O CONT: LUIS MANUEL PERDOMO [id number] -1945 M Exm Date: AUG 29, 2024@20:28 Req Phys: FELISA COLE Loc: ED/4P-12A (Req'g Loc) Img Loc: CT SCAN Service: [place] [address] (Case [id number] COMPLETE) CT HEAD W/O CONT (CT Detailed) CPT:45750 Reason for Study: SEE CLINICAL HISTORY Clinical History: REASON FOR SEND OUT: ATTENDING PHYSICIAN NAME: New transient neurological s/s - suspected TIA HISTORY/REASON FOR EXAM: confusion Report Status: Verified Date Reported: AUG 29, 2024 Date Verified: AUG 29, 2024 Patient Service Coordinator E-Sig: Report: HISTORY confusion COMPARISON No prior [...] Staff: ABDIRAHMAN CROW, Staff Physician Verified by water resources project manager for ABDIRAHMAN CROW /GUERITA CROW,ABDIRAHMAN [facility] Pathology Reports: +/- 30 days of [...] comes from all [place] treatment facilities. Date/Time Pathology Report Provider Source Sep 03, 2024 01:35 PM LR MICROBIOLOGY RE PORT: Reporting Lab: [facility] [CLIA# [id number]] [address] [place] [id number] Accession [UID]: [id number] [[id number]] Received: Sep 03, 2024@14:02 Collection sample: URINE, [...] Bacteriology Report Performed By: [facility] [IA# [id number]] [address] [place], [place] [id number] MAGDY CALABRESE [facility] Sep 02, 2024 06:00 PM LR MICROBIOLOGY RE PORT: Reporting Lab: [facility] [IA# [id number]] [address] [place], [place] [address] Accession [UID]: [id number] [[id number]] Received: Sep 02, 2024@18:07 Collection sample: BLD CULTURE BOTTLES Collection date: Sep 02, 2024 18:00 Site/Specimen: BLOOD Provider: FRANCK TURNER Comment on specimen: L HAND Test(s) ordered: CULTURE, BLOOD................ completed: Sep 08, 2024 * BACTERIOLOGY FINAL REPORT => Sep 08, 2024 08:25 TECH CODE: [id number] Bacteriology Remark(s): Blood culture status=NO GROWTH (unless notified otherwise) 09/03/2024 AEROBIC: NO GROWTH ANAEROBIC: NO GROWTH =--=--=--=--=--=--=--=--=--=-- =--=--=--=--=--=--=--=--=--=-- =--=--=--=--=--=-- Performing Laboratory: Bacteriology Report Performed By: [facility] [IA# [id number]] [address] [place], [place] [id number] MAGDY CALABRESE [facility] Aug 29, 2024 10:18 PM LR MICROBIOLOGY RE PORT: Reporting Lab: [facility] [IA# [id number]] [address] [place], [place] [id number] Accession [UID]: [id number] [[id number]] Received: Aug 29, 2024@22:18 Collection sample: URINE, CLEAN CATCH Collection date: Aug 29, 2024 22:18 Site/Specimen: URINE Provider: FELISA COLE Test(s) ordered: CULTURE, URINE................ completed: Aug 31, 2024 09:51 * BACTERIOLOGY FINAL REPORT => Aug 31, 2024 09:51 TECH CODE: [id number] Bacteriology Remark(s): NO GROWTH 08/30/2024 <10,000 CFU/ML. 08/31/2024 =--=--=--=--=--=--=--=--=--=-- =--=--=--=--=--=--=--=--=--=-- =--=--=--=--=--=-- Performing Laboratory: Bacteriology Report Performed By: [facility] [CLIA# [id number]] [address] [place] [address] MAGDY CALABRESE-[facility]
--- OUTSIDE RECORDS SUMMARY | 2024-09-03 06:43 | XMS_ITS | Encounter Summary ---
Author Name [facility] Organization [facility] Address [address] [place] [address] Care Team Providers Care Glass Cleaner Name Role Phone YULISSA HENDERSON Primary Care [...] PLAN F Mar 24, 2014 PLAN F [id number] LUIS MANUEL PERDOMO PATIENT BS [place] [employer] PREFERRED PROVIDER ORGANIZAT ION (PPO) [facility] SLE Sep 21, 2012 [id number] LUIS MANUEL PERDOMO PATIENT [employer] ([id number]) PRESCRIPT ION WL3A Sep 21, 2012 [id number] LUIS MANUEL PERDOMO PATIENT MEDICARE (WNR) MEDICARE (M) PART B Sep 21, 2012 PART B [id number] NOEMI PERDOMO PATIENT MEDICARE (WNR) MEDICARE (M) PART A Jan 22, 2011 PART A [id number] [phone] NOEMI PERDOMO PATIENT MEDICARE PART D (WNR) MEDICARE (M) PART D Mar 24, 2014 PART D [id number] LUIS MANUEL PERDOMO PATIENT Selected Encounter This section includes the information on record at [place] for the Encounter. Date/Time Encounter Type Encounter Description Reason Provider Source Sep 03, 2024 10:43 AM CASE MANAGEMENT SOCIAL WORK SERVICE ICD-10-CM Z75.1 Person awaiting admission to adequate facility elsewhere TOBY DUONG IHStephen Encounter Template Text not used by [place] Assessments - Encounter Diagnoses This section includes the primary and secondary diagnoses documented for the Encounter. Date/Time Primary/Secondary Diagnosis Diagnosis Name Provider Source Sep 03, 2024 11:10 AM PRIMARY Person awaiting admission to adequate facility elsewhere [facility] Plan of Treatment: Future Appointments (+ 6 months) and Future Tests (+/- 45 days) The Plan of Treatment section includes future care activities for the patient from all [place] treatmentfacilities. This section includes future appointments and future orders which are active, pending or scheduled. Future Appointments This section includes appointments that were scheduled to occur 6 months from the date of the Encounter, up to a maximum of 20 appointments. The data comes from all [place] treatment facilities. Appointment Date/Time Appointment Type Appointme nt Facility Name Sep 13, 2024 08:00 AM [facility]ORY - NONE [facility] Sep 30, 2024 01:30 PM AMBULATORY - SURGERY [place] [facility] Active, Pending, and Scheduled Orders This section includes a listing of several types of active, pending, and scheduled orders, including clinic medications orders, diagnostic test orders, procedure orders and consult orders; where the start date of the order is 45 days before the date of the Encounter or 45 days after the date of theEncounter. The data comes from all [place] treatment [facility]. Test Date/Time Test Type Test Details Facility Name Sep 13, 2024 01:33 PM Consult Order [facility] Cons Grinding And Polishing Laborer's Choice [facility] Lab Results: +/- 30 days of the encounter This section includes the Chemistry and Hematology Lab Results on record with [place] for the patient. Radiology Reports and Pathology [...] Specimen Type: CAPILLARY Comment: Test performed by: [id number] Meter #: [id number] Ordering Provider: FRANCK TURNER Report Released Date/Time: Sep 09, 2024 12:33 PM Reporting Lab: [address] [address] Performing Lab: [address] [address] GLUCOSE-HAND MONITOR 116 mg/dL H 71-99 Sep 09, 2024 06:07 AM [facility] GLUCOSE-HAND MONITOR CAPILLARY Specime n Type: CAPILLARY Comment: Test performed by: [id number] Meter #: [id number] Ordering Provider: FRANCK TURNER Report Released Date/Time: Sep 09, 2024 08:17 AM Reporting Lab: [address] [address] Performing Lab: [address] [address] GLUCOSE-HAND MONITOR 112 mg/dL H 71-99 Sep 08, 2024 09:13 PM [facility] GLUCOSE-HAND MONITOR CAPILLARY Specime n Type: CAPILLARY Comment: Test performed by: [id number] Meter #: [id number] Ordering Provider: FRANCK TURNER Report Released Date/Time: Sep 08, 2024 09:31 PM Reporting Lab: [address] [address] Performing Lab: [address] [address] GLUCOSE-HAND MONITOR 107 mg/dL H 71-99 Sep 08, 2024 03:49 PM [facility] GLUCOSE-HAND MONITOR CAPILLARY Specime n Type: CAPILLARY Comment: AAMIR RN notified Test performed by: [id number] Meter #: [id number] Ordering Provider: FRANCK TURNER Report Released Date/Time: Sep 08, 2024 04:33 PM Reporting Lab: [address] [address] Performing Lab: [place] [phone] GLUCOSE-HAND MONITOR 162 mg/dL H Sep 08, 2024 11:43 AM [facility] GLUCOSE-HAND MONITOR CAPILLARY Specime n Type: CAPILLARY Comment: AAMIR RN notified Test performed by: [id number] Meter #: [id number] Ordering Provider: FRANCK TURNER Report Released Date/Time: Sep 08, 2024 12:03 PM Reporting Lab: [address] [address] Performing Lab: [address] [address] GLUCOSE-HAND MONITOR 133 mg/dL H Sep 08, 2024 06:13 AM [facility] GLUCOSE-HAND MONITOR CAPILLARY Specime n Type: CAPILLARY Comment: Test performed by: [id number] Meter #: [id number] Ordering Provider: FRANCK TURNER Report Released Date/Time: Sep 08, 2024 06:46 AM Reporting Lab: [address] [address] Performing Lab: [address] [address] GLUCOSE-HAND MONITOR 104 mg/dL H Sep 07, 2024 07:59 PM [facility] GLUCOSE-HAND MONITOR CAPILLARY Specime n Type: CAPILLARY Comment: Test performed by: [id number] Meter #: [id number] Ordering Provider: FRANCK TURNER Report Released Date/Time: Sep 07, 2024 09:05 PM Reporting Lab: [address] [address] Performing Lab: [address] [address] GLUCOSE-HAND MONITOR 107 mg/dL H Sep 07, 2024 04:39 PM [facility] GLUCOSE-HAND MONITOR CAPILLARY Specime n Type: CAPILLARY Comment: Test performed by: [id number] Meter #: [id number] Ordering Provider: FRANCK TURNER Report Released Date/Time: Sep 07, 2024 05:09 PM Reporting Lab: [address] [address] Performing Lab: [address] [address] GLUCOSE-HAND MONITOR 105 mg/dL H 71-99 Sep 07, 2024 11:41 AM [facility] GLUCOSE-HAND MONITOR CAPILLARY Specime n Type: CAPILLARY Comment: Test performed by: [id number] Meter #: [id number] Ordering Provider: FRANCK TURNER Report Released Date/Time: Sep 07, 2024 12:41 PM Reporting Lab: [address] [address] Performing Lab: [address] [address] GLUCOSE-HAND MONITOR 144 mg/dL H -Sep 07, 2024 05:56 AM [facility] GLUCOSE-HAND MONITOR CAPILLARY Specime n Type: CAPILLARY Comment: Test performed by: [id number] Meter #: [id number] Ordering Provider: FRANCK TURNER Report Released Date/Time: Sep 07, 2024 06:31 AM Reporting Lab: [address] [address] Performing Lab: [address] [address] GLUCOSE-HAND MONITOR 96 mg/dL -Sep 06, 2024 08:10 PM [facility] GLUCOSE-HAND MONITOR CAPILLARY Specime n Type: CAPILLARY Comment: Test performed by: [id number] Meter #: [id number] Ordering Provider: FRANCK TURNER Report Released Date/Time: Sep 06, 2024 08:52 PM Reporting Lab: [address] [address] Performing Lab: [address] [address] GLUCOSE-HAND MONITOR 124 mg/dL H -Sep 06, 2024 04:27 PM [facility] GLUCOSE-HAND MONITOR CAPILLARY Specime n Type: CAPILLARY Comment: Test performed by: [id number] Meter #: [id number] Ordering Provider: FRANCK TURNER Report Released Date/Time: Sep 06, 2024 05:15 PM Reporting Lab: [address] [address] Performing Lab: [address] [address] GLUCOSE-HAND MONITOR 107 mg/dL H Sep 06, 2024 12:12 PM [facility] GLUCOSE-HAND MONITOR CAPILLARY Specime n Type: CAPILLARY Comment: Test performed by: [id number] Meter #: [id number] Ordering Provider: FRANCK TURNER Report Released Date/Time: Sep 06, 2024 12:29 PM Reporting Lab: [address] [address] Performing Lab: [address] [address] GLUCOSE-HAND MONITOR 181 mg/dL H Sep 06, 2024 06:13 AM [facility] GLUCOSE-HAND MONITOR CAPILLARY Specime n Type: CAPILLARY Comment: Test performed by: [id number] Meter #: [id number] Ordering Provider: FRANCK TURNER Report Released Date/Time: Sep 06, 2024 06:36 AM Reporting Lab: [address] [address] Performing Lab: [address] [address] GLUCOSE-HAND MONITOR 102 mg/dL H Sep 05, 2024 08:47 PM [facility] GLUCOSE-HAND MONITOR CAPILLARY Specime n Type: CAPILLARY Comment: Test performed by: [id number] Meter #: [id number] Ordering Provider: FRANCK TURNER Report Released Date/Time: Sep 06, 2024 02:13 AM Reporting Lab: [address] [address] Performing Lab: [address] [address] GLUCOSE-HAND MONITOR 103 mg/dL H Sep 05, 2024 04:40 PM [facility] GLUCOSE-HAND MONITOR CAPILLARY Specime n Type: CAPILLARY Comment: AAMIR RN notified Test performed by: [id number] Meter #: [id number] Ordering Provider: FRANCK TURNER Report Released Date/Time: Sep 05, 2024 05:11 PM Reporting Lab: [address] [place] [address] Performing Lab: [address] [address] GLUCOSE-HAND MONITOR 113 mg/dL H -Sep 05, 2024 12:06 PM [facility] GLUCOSE-HAND MONITOR CAPILLARY Specime n Type: CAPILLARY Comment: Test performed by: [id number] Meter #: [id number] Ordering Provider: FRANCK TURNER Report Released Date/Time: Sep 05, 2024 12:23 PM Reporting Lab: [address] [address] Performing Lab: [address] GLUCOSE-HAND MONITOR 115 mg/dL H -Sep 05, 2024 06:26 AM [facility] GLUCOSE-HAND MONITOR CAPILLARY Specime n Type: CAPILLARY Comment: AAMIR Correction Dose Test performed by: [id number] Meter #: [id number] Ordering Provider: FRANCK TURNER Report Released Date/Time: Sep 05, 2024 06:43 AM Reporting Lab: [address] [address] Performing Lab: [address] [address] GLUCOSE-HAND MONITOR 111 mg/dL H -Sep 04, 2024 08:59 PM [facility] GLUCOSE-HAND MONITOR CAPILLARY Specime n Type: CAPILLARY Comment: AAMIR RN notified Test performed by: [id number] Meter #: [id number] Ordering Provider: FRANCK TURNER Report Released Date/Time: Sep 04, 2024 09:36 PM Reporting Lab: [address] [address] Performing Lab: [address] [address] GLUCOSE-HAND MONITOR 123 mg/dL H -Sep 04, 2024 04:41 PM [facility] GLUCOSE-HAND MONITOR CAPILLARY Specime n Type: CAPILLARY Comment: AAMIR RN notified Test performed by: [id number] Meter #: [id number] Ordering Provider: FRANCK TURNER Report Released Date/Time: Sep 04, 2024 05:03 PM Reporting Lab: [place] [phone] Performing Lab: [place] [phone] GLUCOSE-HAND MONITOR 118 mg/dL H Sep 04, 2024 12:36 PM [facility] GLUCOSE-HAND MONITOR CAPILLARY Specime n Type: CAPILLARY Comment: AAMIR RN notified Test performed by: [id number] Meter #: [id number] Ordering Provider: FRANCK TURNER Report Released Date/Time: Sep 04, 2024 12:53 PM Reporting Lab: [place] [phone] Performing Lab: [place] [phone] GLUCOSE-HAND MONITOR 129 mg/dL H Sep 04, 2024 12:03 PM [facility] RESPIRATORY VIRUS PANEL (BIOFIRE) NASOPHARYN X Specimen Type: NASOPHARYNX Comment: ~For Test: RESPIRATORY VIRUS PANEL (BIOFIRE) ~ORDER READ BACK TO: FRANCK TURNER 09/04/24@11:30 Ordering Provider: FRANCK TURNER Report Released Date/Time: Sep 04, 2024 11:33 AM Reporting Lab: [place] [phone] Performing Lab: [place] [phone] ADENOVIRUS (BIOFIRE) Not Detected -Not D etected [...] Detected Sep 04, 2024 06:55 AM [facility] MAGNESIUM PLASMA Specimen Type: PLASM A [...] Sep 03, 2024 11:10 AM Reporting Lab: [address] [address] Performing Lab: [address] [address] MAGNESIUM 1.8 mg/dL 1.6-2.6 Sep 04, 2024 06:55 AM [facility] PANEL 1 PLASMA Specimen Type: [...] Sep 03, 2024 11:10 AM Reporting Lab: [address] [address] Performing Lab: [place] [phone] CREATININE 0.75 mg/dL 0.72-1.25 UREA NITROGEN 13 mg/dL 9-25 GLUCOSE 105 mg/dL H 74-100 SODIUM 128 mmol/L L 136-145 POTASSIUM 3.9 mmol/L 3.5-5.1 CHLORIDE 99 mmol/L 98-107 CO2 21 mmol/L L 22-29 CALCIUM 8.0 mg/dL L 8.4-10.2 ANION GAP 8 meq/L 3-19 eGFR (CKD-EPI) >90 Sep 04, 2024 06:02 AM [facility] GLUCOSE-HAND MONITOR CAPILLARY Specime n Type: CAPILLARY Comment: Test performed by: [id number] Meter #: [id number] Ordering Provider: FRANCK TURNER Report Released Date/Time: Sep 04, 2024 06:28 AM Reporting Lab: [address] [address] Performing Lab: [address] [address] GLUCOSE-HAND MONITOR 114 mg/dL H 71-99 Sep 03, 2024 05:19 PM [facility] GLUCOSE-HAND MONITOR CAPILLARY Specime n Type: CAPILLARY Comment: Test performed by: [id number] Meter #: [id number] Ordering Provider: FRANCK TURNER Report Released Date/Time: Sep 03, 2024 05:37 PM Reporting Lab: [address] [address] Performing Lab: [place] [phone] GLUCOSE-HAND MONITOR 124 mg/dL H 71-99 Sep 03, 2024 04:41 PM [facility] GLUCOSE-HAND MONITOR CAPILLARY Specime n Type: CAPILLARY Comment: Test performed by: [id number] Meter #: [id number] Ordering Provider: FRANCK TURNER Report Released Date/Time: Sep 03, 2024 06:09 PM Reporting Lab: [address] [address] Performing Lab: [address] [address] GLUCOSE-HAND MONITOR 112 mg/dL H 71-99 Sep 03, 2024 01:35 PM [facility] CREATININE URINE Specimen Type: URINE Comment: ~Altered mental status with no identifiable cause Ordering Provider: FRANCK TURNER Report Released Date/Time: Sep 02, 2024 04:44 PM Reporting Lab: [address] [address] Performing Lab: [address] [address] CREATININE 150.9 mg/dL Sep 03, 2024 01:35 PM [facility] URINE LYTES URINE Specimen Type : URINE Comment: ~Altered mental status with no identifiable cause Ordering Provider: FRANCK TURNER Report Released Date/Time: Sep 02, 2024 04:44 PM Reporting Lab: [address] [address] Performing Lab: [address] [address] SODIUM 130 mmol/L POTASSIUM 47.6 mmol/L CHLORIDE 137 mmol/L Sep 03, 2024 01:35 PM [facility] UREA NITROGEN URINE Specimen Type : URINE Comment: ~Altered mental status with no identifiable cause Ordering Provider: FRANCK TURNER Report Released Date/Time: Sep 02, 2024 04:44 PM Reporting Lab: [address] [address] Performing Lab: [address] [address] UREA NITROGEN 320 mg/dL Sep 03, 2024 01:35 PM [facility] OSMOLALITY URINE Specimen Type: URINE Comment: ~Altered mental status with no identifiable cause Ordering Provider: FRANCK TURNER Report Released Date/Time: Sep 02, 2024 04:44 PM Reporting Lab: [address] [address] Performing Lab: [address] [address] OSMOLALITY 522 mosm/kg 38-1400 Sep 03, 2024 01:35 PM [facility] URINALYSIS WITH REFLEX TO CULTURE URINE Specimen Type: URINE Comment: ~Altered mental status with no identifiable cause Ordering Provider: FRANCK TURNER Report Released Date/Time: Sep 02, 2024 04:44 PM Reporting Lab: [address] [address] Performing Lab: [address] [address] URINE COLOR Yellow Colorless-Yellow APPEARANCE CLOUDY H [...] H 0-28 Sep 03, 2024 11:58 AM [facility] GLUCOSE-HAND MONITOR CAPILLARY Specime n Type: CAPILLARY Comment: AAMIR RN notified Test performed by: [id number] Meter #: [id number] Ordering Provider: FRANCK TURNER Report Released Date/Time: Sep 03, 2024 12:15 PM Reporting Lab: [address] [address] Performing Lab: [address] [address] GLUCOSE-HAND MONITOR 135 mg/dL H 71-99 Sep 03, 2024 07:09 AM [facility] GLUCOSE-HAND MONITOR CAPILLARY Specime n Type: CAPILLARY Comment: Test performed by: [id number] Meter #: [id number] Ordering Provider: FRANCK TURNER Report Released Date/Time: Sep 03, 2024 07:26 AM Reporting Lab: [address] [address] Performing Lab: [address] [address] GLUCOSE-HAND MONITOR 120 mg/dL H 71-99 Sep 03, 2024 07:05 AM [facility] MAGNESIUM PLASMA Specimen Type: PLASM [...] Sep 02, 2024 04:29 PM Reporting Lab: [address] [address] Performing Lab: [address] [address] MAGNESIUM 1.7 mg/dL 1.6-2.6 Sep 03, 2024 07:05 AM [facility] CBC/PLT BLOOD Specimen Type: BLOOD No comment entered. Ordering Provider: FRANCK TURNER Report Released Date/Time: Sep 02, 2024 04:29 PM Reporting Lab: [address] [address] Performing Lab: [address] [address] WBC 6.9 10*3/uL 5.0-10.0 RBC 3.48 10*6/uL L 4.6-6.2 HGB 9.5 g/dL L 14.0-18.0 HCT 29.1 L 42.0-52.0 MCV 83.6 fL 80.0-94.0 MCH 27.3 pg 27.0-31.0 MCHC 32.6 g/dL 32.0-36.0 PLT 258 10*3/uL 150-450 MPV 10.3 fL 9.0-13.1 RDW 14.8 11.0-16.0 NRBC 0.0 0.0-0.0 Sep 03, 2024 07:05 AM [facility] PANEL 1 PLASMA Specimen Type: [...] Sep 02, 2024 04:29 PM Reporting Lab: [address] [address] Performing Lab: [address] [address] CREATININE 0.82 mg/dL 0.72-1.25 UREA NITROGEN 12 mg/dL 9-25 GLUCOSE 109 mg/dL H 74-100 SODIUM 129 mmol/L L 136-145 POTASSIUM 4.2 mmol/L 3.5-5.1 CHLORIDE 99 mmol/L 98-107 CO2 21 mmol/L L 22-29 CALCIUM 8.1 mg/dL L 8.4-10.2 ANION GAP 9 meq/L 3-19 eGFR (CKD-EPI) 90 Sep 03, 2024 07:05 AM [facility] GLYCOHEMOGLOBIN BLOOD Specimen Type: BLOOD Comment: Prediabetes: 5.7%-6.4% Diabetes: >= 6.5% [facility] guidelines for A1c interpretation: Glycemic control targets [...] 8.73 and 9.27. Ref: https://ngsp.org/CAPdata.asp. The in-house [employer]-Sapheneia D-100 analyzer has a historical CV <= 2%. Contact the laboratory for further performance characteristics of this assay. Ordering Provider: FRANCK TURNER Report Released Date/Time: Sep 02, 2024 04:29 PM Reporting Lab: [place] [phone] Performing Lab: [place] [phone] GLYCOHEMOGLOBIN 5.6 4.4-5.6 Sep 03, 2024 07:05 AM [facility] OSMOLALITY SERUM Specimen Type: SERUM No comment entered. Ordering Provider: FRANCK TURNER Report Released Date/Time: Sep 02, 2024 04:44 PM Reporting Lab: [address] [address] Performing Lab: [address] [address] OSMOLALITY 271 mosm/kg L 280-300 Sep 02, 2024 08:15 PM [facility] GLUCOSE-HAND MONITOR CAPILLARY Specime n Type: CAPILLARY Comment: AAMIR DEXTER notified Test performed by: [id number] Meter #: [id number] Ordering Provider: FRANCK TURNER Report Released Date/Time: Sep 02, 2024 08:57 PM Reporting Lab: [address] [address] Performing Lab: [address] [address] GLUCOSE-HAND MONITOR 126 mg/dL H 71-99 Sep 02, 2024 06:10 PM [facility] MRSA SURVL NARES DNA NARES [...] Sep 02, 2024 05:12 PM Reporting Lab: [place] [phone] Performing Lab: [place] [phone] MRSA SURVL NARES DNA Negative Negative Sep 02, 2024 05:36 PM [facility] GLUCOSE-HAND MONITOR CAPILLARY Specime n Type: CAPILLARY Comment: Test performed by: [id number] Meter #: [id number] Ordering Provider: FRANCK TURNER Report Released Date/Time: Sep 02, 2024 05:53 PM Reporting Lab: [address] [address] Performing Lab: [place] [phone] GLUCOSE-HAND MONITOR 127 mg/dL H 71-99 Aug 29, 2024 10:04 PM [facility] URINALYSIS WITH REFLEX TO CULTURE URINE Specimen Type: URINE Comment: ~For Test: URINALYSIS WITH REFLEX TO CULTURE ~REORDER Ordering Provider: FELISA COLE Report Released Date/Time: Aug 29, 2024 09:36 PM Reporting Lab: [address] [address] Performing Lab: [address] [address] URINE COLOR Yellow Colorless-Yellow APPEARANCE Clear Clear [...] /[LPF] 0-28 Aug 29, 2024 08:32 [facility] S[facility]ITIV[facility] TROPONIN I PLASMA [...] Aug 29, 2024 07:55 PM Reporting Lab: [address] [address] Performing Lab: [address] [address] HIGH SENSITIVITY TROPONIN I 7 4-35 Aug 29, 2024 08:32 PM [facility] CBC/PLT BLOOD Specimen Type: BLOOD No comment entered. Ordering Provider: FELISA COLE Report Released Date/Time: Aug 29, 2024 07:55 PM Reporting Lab: [address] [address] Performing Lab: [facility] [address] [facility] [address] WBC 11.2 10*3/uL H 5.0-10.0 RBC 3.97 10*6/uL L 4.6-6.2 HGB 10.9 g/dL L 14.0-18.0 HCT 33.5 L 42.0-52.0 MCV 84.4 fL 80.0-94.0 MCH 27.5 pg 27.0-31.0 MCHC 32.5 g/dL 32.0-36.0 PLT 230 10*3/uL 150-450 MPV 10.2 fL 9.0-13.1 RDW 14.6 11.0-16.0 NRBC 0.0 0.0-0.0 Aug 29, 2024 08:32 PM [facility] PANEL 5 PLASMA Specimen Type: [...] decrease <15 G5 Kidney failure Ordering Provider: FEILSA COLE Report Released Date/Time: Aug 29, 2024 07:55 PM Reporting Lab: [address] [address] Performing Lab: [address] [address] CREATININE 0.85 mg/dL 0.72-1.25 UREA NITROGEN 15 [...] mm[Hg] 18 /min 93 % 0 [place] [facility] Sep 03, 2024 04:38 PM 98.5 F 81 /min 129/76 mm[Hg] 15 /min 94 % 0 [place] [facility] Sep 03, 2024 09:07 AM 98.0 F 94 /min 121/71 mm[Hg] 15 /min 90 % 0 [facility] [facility] Sep 03, 2024 06:13 AM 217.5 lb 32 [place] [facility] Sep 03, 2024 04:41 AM 98.9 F 92 /min 124/71 mm[Hg] 20 /min 91 % 0 [facility] Advance Directives: All historical and current Section Date Range: From patient's date of to the date document was created. This section includes ALL of a patient's completed or amended [place] Advance and Rescinded Directives. The entries below indicate that a directive exists for the patient, but an actual copy is not included with this document. The data comes from all [place] facilities. Date Advance Directives Provider Source Mar 08, 2024 ADVANCE DIRECTIVE DISCUSSION [facility] Radiology Reports: +/- 30 days of [...] the Encounter. The data comes from all [place] treatment facilities. Date/Time Radiology Report Provider Source Sep 06, 2024 01:40 PM MRI BRAIN W & W/O: LUIS MANUEL PERDOMO [id number] -1945 M Exm Date: SEP 06, 2024@13:40 Req Phys: JOHNNYFRANCK ENCINASFRANNY Cuevas Loc: 5-MED/TEL/09-06-2024@19:09 Img Loc: [facility] Service: [facility] [place] [id number] (Case [id number] COMPLETE) MRI BRAIN W & W/O (MRI Detailed) CPT:49205 Contrast Media : Gadolinium Reason for Study: SEE CLINICAL HISTORY Pharmaceutical: GADOTERIDOL 279.3MG/ML 20ML INJ, 19ml Clinical History: MRI Screening (Required): IMPLANTED DEVICE DOCUMENTATION IMPLANTED DEVICE DOCUMENTATION NOT FOUND Does the Bivalve have any Cardiac Implants? None Does the Bivalve have any implanted stimulators? None Does the Bivalve have cochlear implants? No Does the have Cerebral aneurysm clip(s)? I don't know Does the Bivalve have any shrapnel? I don't know If [...] 06, 2024 Date Verified: SEP 06, 2024 [employer] Supervisor E-Sig: Report: MRI brain without and [...] Staff: ARCENIO LEYVA, Staff Radiologist Verified by talent acquisition coordinator for ARCENIO LEYVA /[facility] Sep 06, 2024 01:40 PM MRI C SPINE W & W/ O CONTRAST(FURTHER SEQUENCES): LUIS MANUEL PERDMOO [id number] -1945 M Exm Date: SEP 06, 2024@13:40 Req Phys: FRANCK TURNER Loc: 5-MED/TEL/09-07-2024@06:42 Img Loc: [facility] Service: [facility] [place] [id number] (Case [id number] COMPLETE) MRI C SPINE W & W/O CONTRAST(FURT(MRI Detailed) CPT:15305 Contrast Media : Gadolinium Reason for Study: SEE CLINICAL HISTORY Pharmaceutical: GADOTERIDOL 279.3MG/ML 20ML INJ, 19ml Clinical History: STATUS OF PLAIN FILMS:Not performed (Provide justification for MR W/O prior plain films below.) MRI for MS MRI Screening (Required): IMPLANTED DEVICE DOCUMENTATION IMPLANTED DEVICE DOCUMENTATION NOT FOUND Does the have any Cardiac Implants? None Does the Bivalve have any implanted stimulators? None Does the have cochlear implants? No Does the have Cerebral aneurysm clip(s)? I don't know Does the have any shrapnel? I don't know If yes, where in your body? Please list other implants not listed above: MRI table has a weight limit of 551 lbs. Bivalve's Weight: *212 lb [96.16 kg] (09/04/2024 05:19) Is this patient claustrophobic?: No REASON FOR EXAM: MULTIPLE SCLEROSIS (indicate suspected or established) PERTINENT PATIENT HISTORY: MS c/f flare Risk factors for GADOLINIUM NEPHROGENIC SYSTEMIC SCLEROSIS: Report Status: Verified Date Reported: SEP 07, 2024 Date Verified: SEP 07, 2024 [employer] E-Sig: Report: EXAMINATION: MRI OF THE [...] Interpreting Staff: HUANG TAI, Radiologist Verified by talent acquisition coordinator for HUANG TAI /HUANG [facility] Sep 03, 2024 10:45 AM CHEST SINGLE(1) EW: LUIS MANUEL PERDOMO [id number] -1945 M Exm Date: SEP 03, 2024@10:45 Req Phys: FRANCK TURNER HUANGISIAHFLOSav Pat Loc: 5-MED/TEL/09-03-2024@10:56 Img Loc: CDD RADIOLOGY Service: [place] [address] (Case [id number] COMPLETE)CHEST SINGLE(1) VIEW (RAD Detailed) CPT:79167 Proc Modifiers : PORTABLE EXAM Reason for Study: Eval volume status Clinical History: Report Status: Verified Date Reported: SEP 03, 2024 Date Verified: SEP 03, 2024 [employer] Supervisor E-Sig: Report: EXAMINATION: SINGLE VIEW CHEST [...] Interpreting Staff: HUANG TAI, Radiologist Verified by talent acquisition coordinator for HUANG TAI /[facility]ANG [facility] Aug 29, 2024 08:[address] HEAD W/O CONT: LEANNELUIS MANUEL FABIAN [id number] -1945 M Exm Date: AUG 29, 2024@20:28 Req Phys: FELISA COLE Loc: ED/4P-12A (Req'g Loc) Img Loc: CT SCAN Service: [place] [address] (Case [id number] COMPLETE) CT HEAD W/O CONT (CT Detailed) CPT:78162 Reason for Study: SEE CLINICAL HISTORY Clinical History: REASON FOR SEND OUT: ATTENDING PHYSICIAN NAME: New transient neurological s/s - suspected TIA HISTORY/REASON FOR EXAM: confusion Report Status: Verified Date Reported: AUG 29, 2024 Date Verified: AUG 29, 2024 [employer] Supervisor E-Sig: Report: HISTORY confusion COMPARISON No [...] Staff: ABDIRAHMAN CROW, Staff Physician Verified by talent acquisition coordinator for ABDIRAHMAN CROW /ABDIRAHMAN [facility] Pathology Reports: +/- 30 days [...] the Encounter. The data comes from all [place] treatment facilities. Date/Time Pathology Report Provider Source Sep 03, 2024 01:35 PM LR MICROBIOLOGY RE PORT: Reporting Lab: [facility] [CLIA# [id number]] [address] [place] [id number] Accession [UID]: [id number] [[id number]] Received: Sep 03, 2024@14:02 Collection sample: URINE, [...] Report Performed By: [facility] [CLIA# [id number]] [address] [place] [id number] [facility] [place] Sep 02, 2024 06:00 PM LR MICROBIOLOGY RE PORT: Reporting Lab: [facility] [IA# [id number]] [address] [place] [address] Accession [UID]: [id number] [[id number]] Received: Sep 02, 2024@18:07 Collection sample: BLD CULTURE BOTTLES Collection date: Sep 02, 2024 18:00 Site/Specimen: BLOOD Provider: FRANCK TURNER Comment on specimen: L HAND Test(s) ordered: CULTURE, BLOOD................ completed: Sep 08, 2024 * BACTERIOLOGY FINAL REPORT => Sep 08, 2024 08:25 TECH CODE: [id number] Bacteriology Remark(s): Blood culture status=NO GROWTH (unless notified otherwise) 09/03/2024 AEROBIC: NO GROWTH ANAEROBIC: NO GROWTH =--=--=--=--=--=--=--=--=--=-- =--=--=--=--=--=--=--=--=--=-- =--=--=--=--=--=-- Performing Laboratory: Bacteriology Report Performed By: [facility] [IA# [id number]] [address] [place] [id number] MAG[facility]RES[facility] [place] Aug 29, 2024 10:18 PM LR MICROBIOLOGY RE PORT: Reporting Lab: [facility] [IA# [id number]] [address] [place] [address] Accession [UID]: [id number] [[id number]] Received: Aug 29, 2024@22:18 Collection sample: URINE, CLEAN CATCH Collection date: Aug 29, 2024 22:18 Site/Specimen: URINE Provider: FELISA COLE Test(s) ordered: CULTURE, URINE................ completed: Aug 31, 2024 09:51 * BACTERIOLOGY FINAL REPORT => Aug 31, 2024 09:51 TECH CODE: [id number] Bacteriology Remark(s): NO GROWTH 08/30/2024 <10,000 CFU/ML. 08/31/2024 =--=--=--=--=--=--=--=--=--=-- =--=--=--=--=--=--=--=--=--=-- =--=--=--=--=--=-- Performing Laboratory: Bacteriology Report Performed By: [facility] [CLIA# [id number]] [address] [place] [address] MAGDY CALABRESE [facility] Encounter Notes: All associated encounter notes This section contains the clinical notes associated to the Encounter. Date/Time Encounter Note(s) Provider Source Sep 03, 2024 11:11 AM SOCIAL WORK CONSUL T: LOCAL TITLE: SOCIAL WORK CONSULT RESPONSE STANDARD TITLE: SOCIAL WORK CONSULT DATE OF NOTE: SEP 03, 2024@11:11 ENTRY DATE: SEP 03, 2024@11:11:11 AUTHOR: TOBY DUONG EXP COSIGNER: URGENCY: STATUS: COMPLETED SW discussed consult for advance directives with & spouse at bedside. Spouse & declined wanting to complete advance directive paperwork & spouse states she already has POA paperwork completed. SW provided copy of [place] paperwork for spouse to review in case it is different from the POA already completed. /rosette/ Toby Duong TAXONOMY TEACHER Signed: 09/03/2024 11:13 [facility] Sep 03, 2024 10:43 AM DISCHARGE PLAN: LOCAL TITLE: DISCHARGE PLAN-INTERDISCIPLINARY TEAM STANDARD TITLE: DISCHARGE PLAN DATE OF NOTE: SEP 03, 2024@10:43 ENTRY DATE: SEP 03, 2024@10:43:33 AUTHOR: TOBY DUONG EXP COSIGNER: URGENCY: STATUS: COMPLETED Interdisciplinary Huddle completed today, at which time we reviewed current medical issues and status update. In addition we discussed anticipated discharge date, potential barriers to discharge, and anticipated disposition. TEAM HUDDLE MEMBERS: Present today: MD GUERITA BECKHAM RD [facility] PharmD Reason for Admission: #Weakness due to presumed new onset heart failure, type unspecified #Multiple sclerosis Who makes medical decisions on behalf of Patient? Bivalve & spouse, Mental Health and Suicidality has been discussed in Team Huddle No Additional comments for Interdisciplinary Issues in Daily Care and Discharge Planning: status update provided. Per clinical team, not stable for DC at this time. Met with & spouse at bedside to discuss DC plan. Spouse reports had been at [facility] for rehab. However, spouse reports has been unable to ambulate due to not feeling well. Spouse states she was not really happy with his current facility & would prefer for to DC to [facility] for rehab if possible. States she requested that facility previously but they did not have availability. SW informed spouse that if [facility] recommended at time of DC, that SW can send referral to [facility] for consideration. If [facility] does not have availabilty at that time, spouse states her next choice would be to have return to [facility]. Bivalve agreeable to plan. SW discussed consult for advance directives. Spouse & declined wanting to complete advance directive & spouse states she already has POA paperwork completed. SW provided copy of [place] paperwork for spouse to review in case it is different from the POA already completed. Spouse & denied any other questions/concerns at this time. SW will continue to follow to assist with DC planning. FINAL DISCHARGE PLAN: [facility] for [facility] pending rehab recs First choice: [facility] Second choice: [facility] Time: 15 minutes Procedure: case management Diagnosis: person awaiting admission to adequate facility elsewhere /rosette/ Toby Duong LCSW Signed: 09/03/2024 11:10 [facility]BY DU[facility]
--- OUTSIDE RECORDS SUMMARY | 2024-09-03 06:50 | XMS_ITS | Encounter Summary ---
Author Name [facility] [place] Organization [facility] [place] Address [address] [place] [id number] Care Team Providers Care Parts Salesman Name Role Phone YULISSA HENDERSON Primary Care [...] PLAN F Mar 24, 2014 PLAN F [id number] LUIS MANUEL PERDOMO PATIENT [facility] [place] BLUECARD PREFERRED PROVIDER ORGANIZAT ION (PPO) [facility] Sep 21, 2012 [id number] LUIS MANUEL PERDOMO PATIENT [employer] ([id number]) PRESCRIPT ION [id number] Sep 21, 2012 [id number] LUIS MANUEL PERDOMO PATIENT MEDICARE (WNR) MEDICARE (M) PART B Sep 21, 2012 PART B [id number] NOEMI PERDOMO PATIENT MEDICARE (WNR) MEDICARE (M) PART A Jan 22, 2011 PART A [id number] NOEMI PERDOMO PATIENT MEDICARE PART D (WNR) MEDICARE (M) PART D Mar 24, 2014 PART D [id number] LUIS MANUEL PERDOMO PATIENT Selected Encounter This section includes the information on record at [place] for the Encounter. Date/Time Encounter Type Encounter Description Reason Provider Source Sep 03, 2024 10:50 AM MTMS BY PHARM MARIO 15 MIN CLINICAL PHARMACY ICD-10-CM Z51.81 Encounter for therapeutic drug level monitoring GENIA MARIN Stephen Encounter Template Text not used by [place] Assessments - Encounter Diagnoses This section includes the primary and secondary diagnoses documented for the Encounter. Date/Time Primary/Secondary Diagnosis Diagnosis Name Provider Source Sep 03, 2024 01:58 PM PRIMARY Encounter for therapeutic drug level monitoring GENIA MARIN [facility] Sep 03, 2024 01:58 PM SECONDARY Other manager terminal (current) drug therapy GENIA MARIN [facility] Plan of Treatment: Future Appointments (+ 6 months) and Future Tests (+/- 45 days) The Plan of Treatment section includes future care activities for the patient from [facility] [place] [facility]. This section includes future appointments and [...] 08:00 AM AMBULATORY - NONE [place] [facility] Sep 30, 2024 01:30 PM AMBULATORY - SURGERY [place] [facility] Active, Pending, and Scheduled Orders This section includes a listing of several types of active, pending, and scheduled orders, including clinic medications orders, diagnostic test orders, procedure orders and consult orders; where the start date of the order is 45 days before the date of the Encounter or 45 days after the date of theEncounter. The data comes from all [place] treatment [facility]. Test Date/Time Test Type Test Details Facility Name Sep 13, 2024 01:33 PM Consult Order [facility] [place] [facility] Cons Edge Burn[facility] Lab Results: +/- 30 days of [...] Type Comment Sep 09, 2024 12:16 PM [facility] GLUCOSE-HAND MONITOR CAPILLARY Specimen Type: CAPILLARY Comment: Test performed by: [id number] Meter #: [id number] Ordering Provider: FRANCK TURNER Report Released Date/Time: Sep 09, 2024 12:33 PM Reporting Lab: [address] [address] Performing Lab: [address] [address] GLUCOSE-HAND MONITOR 116 mg/dL H -Sep 09, 2024 06:07 AM [facility] GLUCOSE-HAND MONITOR CAPILLARY Specime n Type: CAPILLARY Comment: Test performed by: [id number] Meter #: [id number] Ordering Provider: FRANCK TURNER Report Released Date/Time: Sep 09, 2024 08:17 AM Reporting Lab: [address] [address] Performing Lab: [address] [address] GLUCOSE-HAND MONITOR 112 mg/dL H -Sep 08, 2024 09:13 PM [facility] GLUCOSE-HAND MONITOR CAPILLARY Specime n Type: CAPILLARY Comment: Test performed by: [id number] Meter #: [id number] Ordering Provider: FRANCK TURNER Report Released Date/Time: Sep 08, 2024 09:31 PM Reporting Lab: [address] [address] Performing Lab: [address] [address] GLUCOSE-HAND MONITOR 107 mg/dL H -Sep 08, 2024 03:49 PM [facility] GLUCOSE-HAND MONITOR CAPILLARY Specime n Type: CAPILLARY Comment: AAMIR RN notified Test performed by: [id number] Meter #: [id number] Ordering Provider: FRANCK TURNER Report Released Date/Time: Sep 08, 2024 04:33 PM Reporting Lab: [address] [address] Performing Lab: [address] [address] GLUCOSE-HAND MONITOR 162 mg/dL H Sep 08, 2024 11:43 AM [facility] GLUCOSE-HAND MONITOR CAPILLARY Specime n Type: CAPILLARY Comment: AAMIR RN notified Test performed by: [id number] Meter #: [id number] Ordering Provider: FRANCK TURNER Report Released Date/Time: Sep 08, 2024 12:03 PM Reporting Lab: [address] [address] Performing Lab: [address] [address] GLUCOSE-HAND MONITOR 133 mg/dL H Sep 08, 2024 06:13 AM [facility] GLUCOSE-HAND MONITOR CAPILLARY Specime n Type: CAPILLARY Comment: Test performed by: [id number] Meter #: [id number] Ordering Provider: FRANCK TURNER Report Released Date/Time: Sep 08, 2024 06:46 AM Reporting Lab: [address] [address] Performing Lab: [address] [address] GLUCOSE-HAND MONITOR 104 mg/dL H Sep 07, 2024 07:59 PM [facility] GLUCOSE-HAND MONITOR CAPILLARY Specime n Type: CAPILLARY Comment: Test performed by: [id number] Meter #: [id number] Ordering Provider: FRANCK TURNER Report Released Date/Time: Sep 07, 2024 09:05 PM Reporting Lab: [address] [address] Performing Lab: [address] [address] GLUCOSE-HAND MONITOR 107 mg/dL H Sep 07, 2024 04:39 PM [facility] GLUCOSE-HAND MONITOR CAPILLARY Specime n Type: CAPILLARY Comment: Test performed by: [id number] Meter #: [id number] Ordering Provider: FRANCK TURNER Report Released Date/Time: Sep 07, 2024 05:09 PM Reporting Lab: [address] [address] Performing Lab: [address] [address] GLUCOSE-HAND MONITOR 105 mg/dL H Sep 07, 2024 11:41 AM [facility] GLUCOSE-HAND MONITOR CAPILLARY Specime n Type: CAPILLARY Comment: Test performed by: [id number] Meter #: [id number] Ordering Provider: FRANCK TURNER Report Released Date/Time: Sep 07, 2024 12:41 PM Reporting Lab: [address] [address] Performing Lab: [place] [phone] GLUCOSE-HAND MONITOR 144 mg/dL H Sep 07, 2024 05:56 AM [facility] GLUCOSE-HAND MONITOR CAPILLARY Specime n Type: CAPILLARY Comment: Test performed by: [id number] Meter #: [id number] Ordering Provider: FRANCK TURNER Report Released Date/Time: Sep 07, 2024 06:31 AM Reporting Lab: [address] [address] Performing Lab: [address] [address] GLUCOSE-HAND MONITOR 96 mg/dL Sep 06, 2024 08:10 PM [facility] GLUCOSE-HAND MONITOR CAPILLARY Specime n Type: CAPILLARY Comment: Test performed by: [id number] Meter #: [id number] Ordering Provider: FRANCK TURNER Report Released Date/Time: Sep 06, 2024 08:52 PM Reporting Lab: [address] [address] Performing Lab: [address] [address] GLUCOSE-HAND MONITOR 124 mg/dL H Sep 06, 2024 04:27 PM [facility] GLUCOSE-HAND MONITOR CAPILLARY Specime n Type: CAPILLARY Comment: Test performed by: [id number] Meter #: [id number] Ordering Provider: FRANCK TURNER Report Released Date/Time: Sep 06, 2024 05:15 PM Reporting Lab: [address] [address] Performing Lab: [address] [address] GLUCOSE-HAND MONITOR 107 mg/dL H Sep 06, 2024 12:12 PM [facility] GLUCOSE-HAND MONITOR CAPILLARY Specime n Type: CAPILLARY Comment: Test performed by: [id number] Meter #: [id number] Ordering Provider: FRANCK TURNER Report Released Date/Time: Sep 06, 2024 12:29 PM Reporting Lab: [address] [address] Performing Lab: [address] [address] GLUCOSE-HAND MONITOR 181 mg/dL H Sep 06, 2024 06:13 AM [facility] GLUCOSE-HAND MONITOR CAPILLARY Specime n Type: CAPILLARY Comment: Test performed by: [id number] Meter #: [id number] Ordering Provider: FRANCK TURNER Report Released Date/Time: Sep 06, 2024 06:36 AM Reporting Lab: [address] [address] Performing Lab: [address] [address] GLUCOSE-HAND MONITOR 102 mg/dL H Sep 05, 2024 08:47 PM [facility] GLUCOSE-HAND MONITOR CAPILLARY Specime n Type: CAPILLARY Comment: Test performed by: [id number] Meter #: [id number] Ordering Provider: FRANCK TURNER Report Released Date/Time: Sep 06, 2024 02:13 AM Reporting Lab: [address] [address] Performing Lab: [address] [address] GLUCOSE-HAND MONITOR 103 mg/dL H Sep 05, 2024 04:40 PM [facility] GLUCOSE-HAND MONITOR CAPILLARY Specime n Type: CAPILLARY Comment: AAMIR RN notified Test performed by: [id number] Meter #: [id number] Ordering Provider: FRANCK TURNER Report Released Date/Time: Sep 05, 2024 05:11 PM Reporting Lab: [address] [address] Performing Lab: [address] [address] GLUCOSE-HAND MONITOR 113 mg/dL H Sep 05, 2024 12:06 PM [facility] GLUCOSE-HAND MONITOR CAPILLARY Specime n Type: CAPILLARY Comment: Test performed by: [id number] Meter #: [id number] Ordering Provider: FRANCK TURNER Report Released Date/Time: Sep 05, 2024 12:23 PM Reporting Lab: [address] [address] Performing Lab: [address] [address] GLUCOSE-HAND MONITOR 115 mg/dL H Sep 05, 2024 06:26 AM [facility] GLUCOSE-HAND MONITOR CAPILLARY Specime n Type: CAPILLARY Comment: AAMIR Correction Dose Test performed by: [id number] Meter #: [id number] Ordering Provider: FRANCK TURNER Report Released Date/Time: Sep 05, 2024 06:43 AM Reporting Lab: [address] [address] Performing Lab: [address] [address] GLUCOSE-HAND MONITOR 111 mg/dL H Sep 04, 2024 08:59 PM [facility] GLUCOSE-HAND MONITOR CAPILLARY Specime n Type: CAPILLARY Comment: AAMIR RN notified Test performed by: [id number] Meter #: [id number] Ordering Provider: FRANCK TURNER Report Released Date/Time: Sep 04, 2024 09:36 PM Reporting Lab: [address] [address] Performing Lab: [address] [address] GLUCOSE-HAND MONITOR 123 mg/dL H Sep 04, 2024 04:41 PM [facility] GLUCOSE-HAND MONITOR CAPILLARY Specime n Type: CAPILLARY Comment: AAMIR RN notified Test performed by: [id number] Meter #: [id number] Ordering Provider: FRANCK TURNER Report Released Date/Time: Sep 04, 2024 05:03 PM Reporting Lab: [place] [phone] Performing Lab: [place] [phone] GLUCOSE-HAND MONITOR 118 mg/dL H Sep 04, 2024 12:36 PM [facility] GLUCOSE-HAND MONITOR CAPILLARY Specime n Type: CAPILLARY Comment: AAMIR RN notified Test performed by: [id number] Meter #: [id number] Ordering Provider: FRANCK TURNER Report Released Date/Time: Sep 04, 2024 12:53 PM Reporting Lab: [place] [phone] Performing Lab: [address] GLUCOSE-HAND MONITOR 129 mg/dL H Sep 04, 2024 12:03 PM [facility] RESPIRATORY VIRUS PANEL (BIOFIRE) NASOPHARYN X Specimen Type: NASOPHARYNX Comment: ~For Test: RESPIRATORY VIRUS PANEL (BIOFIRE) ~ORDER READ BACK TO: FRANCK TURNER 09/04/24@11:30 Ordering Provider: FRANCK TURNER Report Released Date/Time: Sep 04, 2024 11:33 AM Reporting Lab: [place] [phone] Performing Lab: [place] [address] ADENOVIRUS (BIOFIRE) Not Detected -Not D etected [...] Detected Sep 04, 2024 06:55 AM [facility] MAGNESIUM PLASMA Specimen Type: PLASM A [...] Sep 03, 2024 11:10 AM Reporting Lab: [address] [address] Performing Lab: [address] [address] MAGNESIUM 1.8 mg/dL 1.6-2.6 Sep 04, 2024 06:55 AM [facility] PANEL 1 PLASMA Specimen Type: PLASM A [...] Sep 03, 2024 11:10 AM Reporting Lab: [address] [address] Performing Lab: [address] CREATININE 0.75 mg/dL 0.72-1.25 UREA NITROGEN 13 mg/dL 9-25 GLUCOSE 105 mg/dL H 74-100 SODIUM 128 mmol/L L 136-145 POTASSIUM 3.9 mmol/L 3.5-5.1 CHLORIDE 99 mmol/L 98-107 CO2 21 mmol/L L 22-29 CALCIUM 8.0 mg/dL L 8.4-10.2 ANION GAP 8 meq/L 3-19 eGFR (CKD-EPI) >90 Sep 04, 2024 06:02 AM [facility] GLUCOSE-HAND MONITOR CAPILLARY Specime n Type: CAPILLARY Comment: Test performed by: [id number] Meter #: [id number] Ordering Provider: FRANCK TURNER Report Released Date/Time: Sep 04, 2024 06:28 AM Reporting Lab: [address] [address] Performing Lab: [address] [address] GLUCOSE-HAND MONITOR 114 mg/dL H 71-99 Sep 03, 2024 05:19 PM [facility] GLUCOSE-HAND MONITOR CAPILLARY Specime n Type: CAPILLARY Comment: Test performed by: [id number] Meter #: [id number] Ordering Provider: FRANCK TURNER Report Released Date/Time: Sep 03, 2024 05:37 PM Reporting Lab: [address] [address] Performing Lab: [address] GLUCOSE-HAND MONITOR 124 mg/dL H 71-99 Sep 03, 2024 04:41 PM [facility] GLUCOSE-HAND MONITOR CAPILLARY Specime n Type: CAPILLARY Comment: Test performed by: [id number] Meter #: [id number] Ordering Provider: FRANCK TURNER Report Released Date/Time: Sep 03, 2024 06:09 PM Reporting Lab: [address] [address] Performing Lab: [address] [address] GLUCOSE-HAND MONITOR 112 mg/dL H 71-99 Sep 03, 2024 01:35 PM [facility] URINE LYTES URINE Specimen Type : URINE Comment: ~Altered mental status with no identifiable cause Ordering Provider: FRANCK TURNER Report Released Date/Time: Sep 02, 2024 04:44 PM Reporting Lab: [address] [address] Performing Lab: [address] [address] SODIUM 130 mmol/L POTASSIUM 47.6 mmol/L CHLORIDE 137 mmol/L Sep 03, 2024 01:35 PM [facility] CREATININE URINE Specimen Type: URINE Comment: ~Altered mental status with no identifiable cause Ordering Provider: FRANCK TURNER Report Released Date/Time: Sep 02, 2024 04:44 PM Reporting Lab: [address] [address] Performing Lab: [address] [address] CREATININE 150.9 mg/dL Sep 03, 2024 01:35 PM [facility] OSMOLALITY URINE Specimen Type: URINE Comment: ~Altered mental status with no identifiable cause Ordering Provider: FRANCK TURNER Report Released Date/Time: Sep 02, 2024 04:44 PM Reporting Lab: [address] [address] Performing Lab: [address] [address] OSMOLALITY 522 mosm/kg 38-1400 Sep 03, 2024 01:35 PM [facility] UREA NITROGEN URINE Specimen Type : URINE Comment: ~Altered mental status with no identifiable cause Ordering Provider: FRANCK TURNER Report Released Date/Time: Sep 02, 2024 04:44 PM Reporting Lab: [address] [address] Performing Lab: [address] [address] UREA NITROGEN 320 mg/dL Sep 03, 2024 01:35 PM [facility] URINALYSIS WITH REFLEX TO CULTURE URINE Specimen Type: URINE Comment: ~Altered mental status with no identifiable cause Ordering Provider: FRANCK TURNER Report Released Date/Time: Sep 02, 2024 04:44 PM Reporting Lab: [address] [address] Performing Lab: [address] [address] URINE COLOR Yellow Colorless-Yellow APPEARANCE CLOUDY H [...] Sep 03, 2024 11:58 AM [facility] GLUCOSE-HAND MONITOR CAPILLARY Specime n Type: CAPILLARY Comment: AAMIR RN notified Test performed by: [id number] Meter #: [id number] Ordering Provider: FRANCK TURNER Report Released Date/Time: Sep 03, 2024 12:15 PM Reporting Lab: [address] [address] Performing Lab: [address] [address] GLUCOSE-HAND MONITOR 135 mg/dL H 71-99 Sep 03, 2024 07:09 AM [facility] GLUCOSE-HAND MONITOR CAPILLARY Specime n Type: CAPILLARY Comment: Test performed by: [id number] Meter #: [id number] Ordering Provider: FRANCK TURNER Report Released Date/Time: Sep 03, 2024 07:26 AM Reporting Lab: [address] [address] Performing Lab: [address] [address] GLUCOSE-HAND MONITOR 120 mg/dL H 71-99 Sep 03, 2024 07:05 AM [facility] CBC/PLT BLOOD Specimen Type: BLOOD No comment entered. Ordering Provider: FRANCK TURNER Report Released Date/Time: Sep 02, 2024 04:29 PM Reporting Lab: [address] [address] Performing Lab: [address] [address] WBC 6.9 10*3/uL 5.0-10.0 RBC 3.48 10*6/uL L 4.6-6.2 HGB 9.5 g/dL L 14.0-18.0 HCT 29.1 L 42.0-52.0 MCV 83.6 fL 80.0-94.0 MCH 27.3 pg 27.0-31.0 MCHC 32.6 g/dL 32.0-36.0 PLT 258 10*3/uL 150-450 MPV 10.3 fL 9.0-13.1 RDW 14.8 11.0-16.0 NRBC 0.0 0.0-0.0 Sep 03, 2024 07:05 AM [facility] MAGNESIUM PLASMA Specimen Type: PLASM A Comment: [...] Sep 02, 2024 04:29 PM Reporting Lab: [address] [address] Performing Lab: [address] [address] MAGNESIUM 1.7 mg/dL 1.6-2.6 Sep 03, 2024 07:05 AM [facility] PANEL 1 PLASMA Specimen Type: PLASM A [...] Sep 02, 2024 04:29 PM Reporting Lab: [address] [address] Performing Lab: [address] [address] CREATININE 0.82 mg/dL 0.72-1.25 UREA NITROGEN 12 mg/dL 9-25 GLUCOSE 109 mg/dL H 74-100 SODIUM 129 mmol/L L 136-145 POTASSIUM 4.2 mmol/L 3.5-5.1 CHLORIDE 99 mmol/L 98-107 CO2 21 mmol/L L 22-29 CALCIUM 8.1 mg/dL L 8.4-10.2 ANION GAP 9 meq/L 3-19 eGFR (CKD-EPI) 90 Sep 03, 2024 07:05 AM [facility] GLYCOHEMOGLOBIN BLOOD Specimen Type: BLOOD Comment: Prediabetes: 5.7%-6.4% Diabetes: >= 6.5% [facility] guidelines for A1c interpretation: Glycemic control targets are based on Shared Decision Making between clinicians and patients. Criteria used to establish an A1c target recommendation can be found at https://www.[place].gov/qualityandpatientsafety/ and include the use of result accuracy [...] 8.73 and 9.27. Ref: https://ngsp.org/CAPdata.asp. The in-house Perficient D-100 analyzer has a historical CV <= 2%. Contact the laboratory for further performance characteristics of this assay. Ordering Provider: FRANCK TURNER Report Released Date/Time: Sep 02, 2024 04:29 PM Reporting Lab: [address] [address] Performing Lab: [address] [address] GLYCOHEMOGLOBIN 5.6 4.4-5.6 Sep 03, 2024 07:05 AM [facility] OSMOLALITY SERUM Specimen Type: SERUM No comment entered. Ordering Provider: FRANCK TURNER Report Released Date/Time: Sep 02, 2024 04:44 PM Reporting Lab: [address] [address] Performing Lab: [address] [address] OSMOLALITY 271 mosm/kg L 280-300 Sep 02, 2024 08:15 PM [facility] GLUCOSE-HAND MONITOR CAPILLARY Specime n Type: CAPILLARY Comment: AAMIR DEXTER notified Test performed by: [id number] Meter #: [id number] Ordering Provider: FRANCK TURNER Report Released Date/Time: Sep 02, 2024 08:57 PM Reporting Lab: [address] [address] Performing Lab: [address] [address] GLUCOSE-HAND MONITOR 126 mg/dL H 71-99 Sep 02, 2024 06:10 PM [facility] MRSA SURVL NARES DNA NARES Specime n [...] Sep 02, 2024 05:12 PM Reporting Lab: [address] [address] Performing Lab: [address] [address] MRSA SURVL NARES DNA Negative Negative Sep 02, 2024 05:36 PM [facility] GLUCOSE-HAND MONITOR CAPILLARY Specime n Type: CAPILLARY Comment: Test performed by: [id number] Meter #: [id number] Ordering Provider: FRANCK TURNER Report Released Date/Time: Sep 02, 2024 05:53 PM Reporting Lab: [address] [address] Performing Lab: [address] [address] GLUCOSE-HAND MONITOR 127 mg/dL H 71-99 Aug 29, 2024 10:04 PM [facility] URINALYSIS WITH REFLEX TO CULTURE URINE Specimen Type: URINE Comment: ~For Test: URINALYSIS WITH REFLEX TO CULTURE ~REORDER Ordering Provider: FELISA COLE Report Released Date/Time: Aug 29, 2024 09:36 PM Reporting Lab: [address] [address] Performing Lab: [facility] [address] [facility] [address] URINE COLOR Yellow Colorless-Yellow APPEARANCE Clear Clear [...] Aug 29, 2024 08:32 PM [facility] HIGH SENSITIVITY TROPONIN I PLASMA Specimen Ty [...] 29, 2024 07:55 PM Reporting Lab: [address] [address] Performing Lab: [address] [address] HIGH SENSITIVITY TROPONIN I 7 4-35 Aug 29, 2024 08:32 PM [facility] CBC/PLT BLOOD Specimen Type: BLOOD No comment entered. Ordering Provider: FELISA COLE Report Released Date/Time: Aug 29, 2024 07:55 PM Reporting Lab: [facility] [address] [facility] [address] Performing Lab: [address] [address] WBC 11.2 10*3/uL H 5.0-10.0 RBC 3.97 10*6/uL L 4.6-6.2 HGB 10.9 g/dL L 14.0-18.0 HCT 33.5 L 42.0-52.0 MCV 84.4 fL 80.0-94.0 MCH 27.5 pg 27.0-31.0 MCHC 32.5 g/dL 32.0-36.0 PLT 230 10*3/uL 150-450 MPV 10.2 fL 9.0-13.1 RDW 14.6 11.0-16.0 NRBC 0.0 0.0-0.0 Aug 29, 2024 08:32 PM [facility] PANEL 5 PLASMA Specimen Type: PLASM A [...] 29, 2024 07:55 PM Reporting Lab: [address] [address] Performing Lab: [address] [address] CREATININE 0.85 mg/dL 0.72-1.25 UREA NITROGEN 15 [...] 18 /min 93 % 0 [place] Sep 03, 2024 04:38 PM 98.5 F 81 /min 129/76 mm[Hg] 15 /min 94 % [facility] Sep 03, 2024 09:07 AM 98.0 F 94 /min 121/71 mm[Hg] 15 /min 90 % 0 [place] Sep 03, 2024 06:13 AM 217.5 lb 32 [place] [facility] Sep 03, 2024 04:41 AM 98.9 F 92 /min 124/71 mm[Hg] 20 /min 91 % [facility] Advance Directives: All historical and current [...] ADVANCE DIRECTIVE DISCUSSION RUBIN HILL [facility] Radiology Reports: +/- 30 days of the [...] the Encounter. The data comes from all [place] treatment facilities. Date/Time Radiology Report Provider Source Sep 06, 2024 01:40 PM MRI BRAIN W & W/O: LUIS MANUEL PERDOMO FABIAN [id number] [phone] M Exm Date: SEP 06, 2024@13:40 Req Phys: FRANCK TURNER [facility] Loc: 5-MED/TEL/09-06-2024@19:09 Img Loc: [facility] Service: MEDICAL SERVICE [place] [id number] (Case [id number] COMPLETE) MRI BRAIN W & W/O (MRI Detailed) CPT:45419 Contrast Media : Gadolinium Reason for Study: SEE CLINICAL HISTORY Pharmaceutical: GADOTERIDOL 279.3MG/ML 20ML INJ, 19ml Clinical History: MRI Screening (Required): IMPLANTED DEVICE DOCUMENTATION IMPLANTED DEVICE DOCUMENTATION NOT FOUND Does the have any Cardiac Implants? None Does the [place] have any implanted stimulators? None Does the [place] have cochlear implants? No Does the [place] have Cerebral aneurysm clip(s)? I don't know Does the [place] have any shrapnel? I don't know If yes, where in your body? Please list other implants not listed above: MRI table has a weight limit of 551 lbs. [place]'s Weight: *212 lb [96.16 kg] (09/04/2024 05:19) Is this patient claustrophobic?: No REASON FOR EXAM:MULTIPLE SCLEROSIS (indicate suspected or established) PERTINENT PATIENT HISTORY: MS c/f for flare Risk factors for GADOLINIUM NEPHROGENIC SYSTEMIC SCLEROSIS: Report Status: Verified Date Reported: SEP 06, 2024 Date Verified: SEP 06, 2024 Grooming [employer] Manager E-Sig: Report: MRI brain without and with [...] Staff: ARCENIO LEYVA, Staff Radiologist Verified by pastry cook for ARCENIO LEYVA /MRS LEYVAARCENIO Campos ELIC[facility]-CDD [facility] Sep 06, 2024 01:40 PM MRI C SPINE W & W/ O CONTRAST(FURTHER SEQUENCES): LUIS MANUEL PERDOMO [id number] -[id number] M Exm Date: SEP 06, 2024@13:40 Req Phys: FRANCK TURNER [facility] Loc: 5-MED/TEL/09-07-2024@06:42 Img Loc: [facility] Service: [facility] [place] [id number] (Case [id number] COMPLETE) MRI C SPINE W & W/O CONTRAST(FURT(MRI Detailed) CPT:70872 Contrast Media : Gadolinium Reason for Study: SEE CLINICAL HISTORY Pharmaceutical: GADOTERIDOL 279.3MG/ML 20ML INJ, 19ml Clinical History: STATUS OF PLAIN FILMS:Not performed (Provide justification for MR W/O prior plain films below.) MRI for MS MRI Screening (Required): IMPLANTED DEVICE DOCUMENTATION IMPLANTED DEVICE DOCUMENTATION NOT FOUND Does the have any Cardiac Implants? None Does the [place] have any implanted stimulators? None Does the [place] have cochlear implants? No Does the have [...] 07, 2024 Date Verified: SEP 07, 2024 Grooming Salon Manager E-Sig: Report: EXAMINATION: MRI OF THE CERVICAL [...] Interpreting Staff: HUANG TAI, Radiologist Verified by pastry cook for HUANG TAI /[facility] Sep 03, 2024 10:45 AM CHEST SINGLE(1) EW: LUIS MANUEL PERDOMO [id number] -1945 M Exm Date: SEP 03, 2024@10:45 Req Phys: FRANCK TURNERISIAHSYLVIA Cuevas Loc: 5-MED/TEL/09-03-2024@10:56 Img Loc: CDD RADIOLOGY Service: [place] [address] (Case [id number] COMPLETE)CHEST SINGLE(1) VIEW (RAD Detailed) CPT:16426 Proc Modifiers : PORTABLE EXAM Reason for Study: Eval volume status Clinical History: Report Status: Verified Date Reported: SEP 03, 2024 Date Verified: SEP 03, 2024 Grooming Salon Manager E-Sig: Report: EXAMINATION: SINGLE VIEW CHEST CLINICAL [...] Interpreting Staff: HUANG TAI, Radiologist Verified by pastry cook for HUANG TAI /[facility] Aug 29, 2024 08:[address] HEAD W/O CONT: LUIS MANUEL PERDOMO [id number] -1945 M Exm Date: AUG 29, 2024@20:28 Req Phys: FELISA COLE Loc: ED/4P-12A (Req'g Loc) Img Loc: CT SCAN Service: [place] [address] (Case [id number] COMPLETE) CT HEAD W/O CONT (CT Detailed) CPT:71636 Reason for Study: SEE CLINICAL HISTORY Clinical History: REASON FOR SEND OUT: ATTENDING PHYSICIAN NAME: New transient neurological s/s - 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 The data comes from all [place] treatment facilities. Date/Time Pathology Report Provider Source Sep 03, 2024 01:35 PM LR MICROBIOLOGY RE PORT: Reporting Lab: [facility] [CLIA# [id number]] [address] [place] [id number] Accession [UID]: [id number] [[id number]] Received: Sep 03, 2024@14:02 Collection sample: URINE, [...] Performed By: [facility] [CLIA# [id number]] [address] [place] [phone] MAGDY [facility]ABRESE [facility] Sep 02, 2024 06:00 PM LR MICROBIOLOGY RE PORT: Reporting Lab: [facility] [CLIA# [id number]] [address] [place] [id number] Accession [UID]: [id number] [[id number]] Received: Sep 02, 2024@18:07 Collection sample: BLD CULTURE BOTTLES Collection date: Sep 02, 2024 18:00 Site/Specimen: BLOOD Provider: FRANCK TURNER Comment on specimen: L HAND Test(s) ordered: CULTURE, BLOOD................ completed: Sep 08, 2024 * BACTERIOLOGY FINAL REPORT => Sep 08, 2024 08:25 TECH CODE: [id number] Bacteriology Remark(s): Blood culture status=NO GROWTH (unless notified otherwise) 09/03/2024 AEROBIC: NO GROWTH ANAEROBIC: NO GROWTH =--=--=--=--=--=--=--=--=--=-- =--=--=--=--=--=--=--=--=--=-- =--=--=--=--=--=-- Performing Laboratory: Bacteriology Report Performed By: [facility] [CLIA# [id number]] [address] [place] [phone] MAGDY CALABRESE [facility] Aug 29, 2024 10:18 PM LR MICROBIOLOGY RE PORT: Reporting Lab: [facility] [CLIA# [id number]] [facility] [place] [address] Accession [UID]: [id number] [[id number]] Received: Aug 29, 2024@22:18 Collection sample: URINE, CLEAN CATCH Collection date: Aug 29, 2024 22:18 Site/Specimen: URINE Provider: FELISA COLE Test(s) ordered: CULTURE, URINE................ completed: Aug 31, 2024 09:51 * BACTERIOLOGY FINAL REPORT => Aug 31, 2024 09:51 TECH CODE: [id number] Bacteriology Remark(s): NO GROWTH 08/30/2024 <10,000 CFU/ML. 08/31/2024 =--=--=--=--=--=--=--=--=--=-- =--=--=--=--=--=--=--=--=--=-- =--=--=--=--=--=-- Performing Laboratory: Bacteriology Report Performed By: [facility] [CLIA# [id number]] [address] [place] [id number] MAGDY [facility]ABRES[facility] Encounter Notes: All associated encounter notes This section contains the clinical notes associated to the Encounter. Date/Time Encounter Note(s) Provider Source Sep 03, 2024 10:50 AM PHARMACY MEDICATIO N MGT NOTE: LOCAL TITLE: PHARMACY ADMISSION MEDICATION RECONCILIATION STANDARD TITLE: PHARMACY MEDICATION MGT NOTE DATE OF NOTE: SEP 03, 2024@10:50 ENTRY DATE: SEP 03, 2024@10:50:06 AUTHOR: GENIA MARIN EXP COSIGNER: URGENCY: STATUS: COMPLETED ADMISSION MEDICATION RECONCILIATION Admission Date/Time: Aug 16:26 ALLERGIES: Patient has answered NKA Review of medications include: Patient allergies (Remote and Local) and active and pending prescriptions dispensed from this [place] (local) and dispensed from another[place] or [facility] facility (remote and pending) as well as local inpatient orders (pending and active)and clinic medications (IMOs), locally documented non-VA medications and local prescriptions that have or been discontinued in the past 90 days. With the exception of Allergies, if a category is not listed below, it means there were no relevant medications for the patient. OUTPATIENT MEDICATION REVIEW Active medications per conversation with nurse from [facility] OF NOTE, unable to fax med list. [phone]. -Famotidine 20mg tab po bid -Bisoprolol fumarate [...] -Florastor 2 tab/cap po bid through 09/16/24 INPATIENT MEDICATION REVIEW Active Inpatient Medications (including Supplies): Start Date Active Inpatient Medications Status Stop Date 1) ASPIRIN TAB,EC ACTIVE Start: 09/02/24 Give: 81MG PO DAILY Stop : 12/10/24 Indication: FOR HEART 2) ATORVASTATIN TAB ACTIVE Start: 09/02/24 Give: 20MG PO QHS Stop : 12/10/24 Indication: FOR CHOLESTEROL 3) BISOPROLOL TAB ACTIVE Start: 09/02/24 Give: 5MG PO DAILY Stop : 12/10/24 Indication: FOR BLOOD PRESSURE/HEART 4) DEXTROSE 15GM/32ML PKT GEL,ORAL ACTIVE Start: 09/02/24 Give: 1 PACKET (15GM) PO Q15MIN PRN Stop : 12/10/24 Give one tube (15gm) for BG 51-70mg/dl. Perform fingerstick 15 minutes after treatment; notify treating provider. Indication: FOR LOW BLOOD SUGAR 5) DEXTROSE 15GM/32ML PKT GEL,ORAL ACTIVE Start: 09/02/24 Give: 2 PACKETS (30GM) PO Q15MIN PRN Stop : 12/10/24 Give two tubes (30g) for BG 50 mg/dL and below. Perform fingerstick 15 minutes after treatment; notify treating provider. Indication: FOR LOW BLOOD SUGAR 6) DEXTROSE 50% INJ,SOLN ACTIVE Start: 09/02/24 Give: 25ML (1/2 AMP/SYRINGE) IV Q15MIN PRN Stop : 12/10/24 Give 50% dextrose 25 mL IV (over 3 min) STAT for BG of 51 - 70 mg/dL or NPO. Perform fingerstick 15 minutes after treatment; notify treating provider. Indication: FOR LOW BLOOD SUGAR 7) DEXTROSE 50% INJ,SOLN ACTIVE Start: 09/02/24 Give: 50ML (1 AMP/SYRINGE) IV Q15MIN PRN Stop : 12/10/24 Give 50% dextrose 50 mL IV (over 3 min) STAT for BG of 50 mg/dL and below or unresponsive or NPO. Perform fingerstick 15 minutes after treatment; notify treating provider. Indication: FOR LOW BLOOD SUGAR 8) DICLOFENAC NA 1% GEL,TOP ACTIVE Start: 09/02/24 Give: 2 GRAM STRIP TOP Q6H PRN Stop : 12/10/24 Indication: FOR PAIN 9) ENOXAPARIN (LMW HEPARIN) INJ ACTIVE Start: 09/02/24 Give: 40MG/0.4ML SQ Q24H Stop : 12/10/24 Instructions too long. See order details for full text. Indication: TO THIN BLOOD 10) FAMOTIDINE (famOTidine) TAB ACTIVE Start: 09/02/24 Give: 20MG PO BID PRN Stop : 12/10/24 Indication: FOR STOMACH 11) GABAPENTIN CAP,ORAL ACTIVE Start: 09/02/24 Give: 100MG PO QID Stop : 12/10/24 Indication: FOR NERVE PAIN 12) GLUCAGON INJ ACTIVE Start: 09/02/24 Give: 1MG/1ML SC Q15MIN PRN Stop : 12/10/24 Instructions too long. See order details for full text. Indication: FOR LOW BLOOD SUGAR 13) INSULIN ASPART (NOVOLOG) INJ ACTIVE Start: 09/02/24 Give: CORRECTION DOSE:SEE COMMENTS SQ AT Stop : 12/10/24 MEAL END Give after pt fed WITH scheduled meal/prandial insulin(if ordered) If premeal FSBS 131-180=1 unit; 181-230=2 unit; 231-280=3 unit; 281-330=4 unit; >330=5 unit. DO NOT HOLD for NPO. Indication: FOR BLOOD SUGAR 14) TAMSULOSIN (FLOMAX) CAP,ORAL ACTIVE Start: 09/02/24 Give: 0.8MG PO QPM Stop : 12/10/24 Indication: FOR PROSTATE PATIENT INTERVIEW Patient is a currently a resident at [facility], called to get a med list but they were unable to fax it and gave a verbal over the phone. Will use this med list to resoncile meds. Patient reports taking the following meds/discontinued medications: N/A Patient reports taking the following non-VA Medications: N/A RECONCILIATION REVIEW Medications not continued on admission: -vitamin E -acetaminophen -methenamine -lisinopril -PEG oral powder -metformin -cholecalciferol -AREDS2 -sodium chloride tab -nystatin top powder -duonebs -florastor -levofloxacin Medications continued on admission with changes from outpatient regimen: -famotidine 20mg po bid CHANGED to 20mg po bid prn -gabapentin 200mg po tid CHANGED to 100mg po qid -tamsulosin 0.4mg po qpm CHANGED to 0.8mg po qpm Medication discrepancies between OPT profile and patient interview: N/A New inpatient medications: -hypoglycemia protocol -enoxaparin -insulin aspart correction dose Recommendations: 1) AC/DVT ppx: Enoxaparin 40mg SQ once daily Scr = 0.82 PLT = 258 CrCl = 83.1ml/min Dose is appropriate, continue to monitor renal function/plt and s/s of bleeding whiel hosptialized. 2) Home meds not resumed on admission: -vitamin E -acetaminophen -methenaminerecommend to contiue while hospitalized when deemed clinically appropriate. -lisinopril: BP = 121/71; Scr = 0.82; K = 4.2, recommend to contiue while hospitalized when deemed clinically appropriate. Per medicine note, HOLDING for normotensive. -PEG oral powder -metformin: Gluc = 135, pt started on aspart correction dose w/hypoglycemia protocol.Continue to monitor glucose and adjust as deemed clinically appropriate. -cholecalciferol -AREDS2 -sodium chloride tab -nystatin top powder -duonebs -florastor -levofloxacin: per nurse at [facility] this was set to end on 09/02/24 Sent orange team the verbal med list obtained from [facility] in Teams chat to review and they reported they would continue home meds when deemed clinically appropriate. Time spent reviewing chart: 30 Minutes PBM PharmD Pharmacotherapy Rem V12: Care coordination Medication reconciliation (changes to active VA and non-VA medication lists to reconcile differences) Changes to medication lists made Update dose, frequency, duration and/or dosage form of medication Add or renew medication /es/ GENIA MARIN CLINICAL MED REC PHARMACIST Signed: 09/03/2024 13:59 GENIA MARIN-[facility]
--- OUTSIDE RECORDS SUMMARY | 2024-09-03 08:35 | XMS_ITS ---
[place] DAILY HOSPITALIZATION DATA [facility] Encounter Summary Created on: September 22, 2024 LUIS MANUEL PERDOMO : 1945 Sex: Male Author Name [facility] Organization [facility] Address [address] [place] [address] Care Team Providers Care Educational Interpreter Name Role Phone YULISSA HENDERSON Primary Care [...] PLAN F Mar 24, 2014 PLAN F [id number] LUIS MANUEL PERDOMO PATIENT [facility] [place] [facility] PREFERRED PROVIDER ORGANIZAT ION (PPO) [facility] SLE Sep 21, 2012 [id number] LUIS MANUEL PERDOMO PATIENT [facility] ([id number]) PRESCRIPT ION WL3A Sep 21, 2012 [id number] [id number] LUIS MANUEL PERDOMO PATIENT MEDICARE (WNR) MEDICARE (M) PART B Sep 21, 2012 PART B [id number] NOEMI PERDOMO PATIENT MEDICARE (WNR) MEDICARE (M) PART A Jan 22, 2011 PART A [id number] LEANNE, NOEMI PATIENT MEDICARE PART D (WNR) MEDICARE (M) PART D Mar 24, 2014 PART D [id number] LUIS MANUEL PERDOMO PATIENT Selected Encounter This section includes the information on record at [place] for the Encounter. Date/Time Encounter Type Encounter Description Reason Pro vider Source Sep 03, 2024 12:35 PM Inpatient Visit DAILY HOSPITALIZATION DATA [facility] Encounter Template Text not used by [place] Plan of Treatment: Future Appointments (+ 6 months) and Future Tests (+/- 45 days) The Plan of Treatment section includes future care activities for the patient from all [place] [facility]. This section includes future appointments and future [...] 13, 2024 08:00 AM AMBULATORY - NONE [facility] Sep 30, 2024 01:30 PM AMBULATORY - SURGERY [facility] Active, Pending, and Scheduled Orders This section includes a listing of several types of active, pending, and scheduled orders, including clinic medications orders, diagnostic test orders, procedure orders and consult orders; where the start date of the order is 45 days before the date of the Encounter or 45 days after the date of theEncounter. The data comes from all [facility]3] facilities. Test Date/Time Test Type Test Details Facility Name Sep 13, 2024 01:33 PM Consult Order [facility] CARE Cons Alignment Specialist's Choice [facility] Lab Results: +/- [...] Comment Sep 09, 2024 12:16 PM [facility] GLUCOSE-HAND MONITOR CAPILLARY Specimen Type: CAPILLARY Comment: Test performed by: [id number] Meter #: [id number] Ordering Provider: FRANCK TURNER Report Released Date/Time: Sep 09, 2024 12:33 PM Reporting Lab: [address] [address] Performing Lab: [address] [address] GLUCOSE-HAND MONITOR 116 mg/dL H Sep 09, 2024 06:07 AM [facility] GLUCOSE-HAND MONITOR CAPILLARY Specime n Type: CAPILLARY Comment: Test performed by: [id number] Meter #: [id number] Ordering Provider: FRANCK TURNER Report Released Date/Time: Sep 09, 2024 08:17 AM Reporting Lab: [address] [address] Performing Lab: [address] [address] GLUCOSE-HAND MONITOR 112 mg/dL H Sep 08, 2024 09:13 PM [facility] GLUCOSE-HAND MONITOR CAPILLARY Specime n Type: CAPILLARY Comment: Test performed by: [id number] Meter #: [id number] Ordering Provider: FRANCK TURNER Report Released Date/Time: Sep 08, 2024 09:31 PM Reporting Lab: [address] [address] Performing Lab: [address] [address] GLUCOSE-HAND MONITOR 107 mg/dL H Sep 08, 2024 03:49 PM [facility] GLUCOSE-HAND MONITOR CAPILLARY Specime n Type: CAPILLARY Comment: AAMIR RN notified Test performed by: [id number] Meter #: [id number] Ordering Provider: FRANCK TURNER Report Released Date/Time: Sep 08, 2024 04:33 PM Reporting Lab: [address] [address] Performing Lab: [address] [address] GLUCOSE-HAND MONITOR 162 mg/dL H Sep 08, 2024 11:43 AM [facility] GLUCOSE-HAND MONITOR CAPILLARY Specime n Type: CAPILLARY Comment: AAMIR RN notified Test performed by: [id number] Meter #: [id number] Ordering Provider: FRANCK TURNER Report Released Date/Time: Sep 08, 2024 12:03 PM Reporting Lab: [address] [address] Performing Lab: [address] [address] GLUCOSE-HAND MONITOR 133 mg/dL H Sep 08, 2024 06:13 AM [facility] GLUCOSE-HAND MONITOR CAPILLARY Specime n Type: CAPILLARY Comment: Test performed by: [id number] Meter #: [id number] Ordering Provider: FRANCK TURNER Report Released Date/Time: Sep 08, 2024 06:46 AM Reporting Lab: [address] [address] Performing Lab: [address] [address] GLUCOSE-HAND MONITOR 104 mg/dL H Sep 07, 2024 07:59 PM [facility] GLUCOSE-HAND MONITOR CAPILLARY Specime n Type: CAPILLARY Comment: Test performed by: [id number] Meter #: [id number] Ordering Provider: FRANCK TURNER Report Released Date/Time: Sep 07, 2024 09:05 PM Reporting Lab: [address] [address] Performing Lab: [address] [address] GLUCOSE-HAND MONITOR 107 mg/dL H Sep 07, 2024 04:39 PM [facility] GLUCOSE-HAND MONITOR CAPILLARY Specime n Type: CAPILLARY Comment: Test performed by: [id number] Meter #: [id number] Ordering Provider: FRANCK TURNER Report Released Date/Time: Sep 07, 2024 05:09 PM Reporting Lab: [address] [address] Performing Lab: [address] [address] GLUCOSE-HAND MONITOR 105 mg/dL H Sep 07, 2024 11:41 AM [facility] GLUCOSE-HAND MONITOR CAPILLARY Specime n Type: CAPILLARY Comment: Test performed by: [id number] Meter #: [id number] Ordering Provider: FRANCK TURNER Report Released Date/Time: Sep 07, 2024 12:41 PM Reporting Lab: [address] [address] Performing Lab: [address] [address] GLUCOSE-HAND MONITOR 144 mg/dL H Sep 07, 2024 05:56 AM [facility] GLUCOSE-HAND MONITOR CAPILLARY Specime n Type: CAPILLARY Comment: Test performed by: [id number] Meter #: [id number] Ordering Provider: FRANCK TURNER Report Released Date/Time: Sep 07, 2024 06:31 AM Reporting Lab: [address] [address] Performing Lab: [address] [address] GLUCOSE-HAND MONITOR 96 mg/dL Sep 06, 2024 08:10 PM [facility] GLUCOSE-HAND MONITOR CAPILLARY Specime n Type: CAPILLARY Comment: Test performed by: [id number] Meter #: [id number] Ordering Provider: FRANCK TURNER Report Released Date/Time: Sep 06, 2024 08:52 PM Reporting Lab: [address] [address] Performing Lab: [address] [address] GLUCOSE-HAND MONITOR 124 mg/dL H Sep 06, 2024 04:27 PM [facility] GLUCOSE-HAND MONITOR CAPILLARY Specime n Type: CAPILLARY Comment: Test performed by: [id number] Meter #: [id number] Ordering Provider: FRANCK TURNER Report Released Date/Time: Sep 06, 2024 05:15 PM Reporting Lab: [address] [address] Performing Lab: [address] [address] GLUCOSE-HAND MONITOR 107 mg/dL H Sep 06, 2024 12:12 PM [facility] GLUCOSE-HAND MONITOR CAPILLARY Specime n Type: CAPILLARY Comment: Test performed by: [id number] Meter #: [id number] Ordering Provider: FRANCK TURNER Report Released Date/Time: Sep 06, 2024 12:29 PM Reporting Lab: [address] [address] Performing Lab: [address] [address] GLUCOSE-HAND MONITOR 181 mg/dL H -Sep 06, 2024 06:13 AM [facility] GLUCOSE-HAND MONITOR CAPILLARY Specime n Type: CAPILLARY Comment: Test performed by: [id number] Meter #: [id number] Ordering Provider: FRANCK TURNER Report Released Date/Time: Sep 06, 2024 06:36 AM Reporting Lab: [address] [address] Performing Lab: [address] [address] GLUCOSE-HAND MONITOR 102 mg/dL H Sep 05, 2024 08:47 PM [facility] GLUCOSE-HAND MONITOR CAPILLARY Specime n Type: CAPILLARY Comment: Test performed by: [id number] Meter #: [id number] Ordering Provider: FRANCK TURNER Report Released Date/Time: Sep 06, 2024 02:13 AM Reporting Lab: [address] [address] Performing Lab: [address] [address] GLUCOSE-HAND MONITOR 103 mg/dL H Sep 05, 2024 04:40 PM [facility] GLUCOSE-HAND MONITOR CAPILLARY Specime n Type: CAPILLARY Comment: AAMIR RN notified Test performed by: [id number] Meter #: [id number] Ordering Provider: FRANCK TURNER Report Released Date/Time: Sep 05, 2024 05:11 PM Reporting Lab: [address] [address] Performing Lab: [address] [address] GLUCOSE-HAND MONITOR 113 mg/dL H Sep 05, 2024 12:06 PM [facility] GLUCOSE-HAND MONITOR CAPILLARY Specime n Type: CAPILLARY Comment: Test performed by: [id number] Meter #: [id number] Ordering Provider: FRANCK TURNER Report Released Date/Time: Sep 05, 2024 12:23 PM Reporting Lab: [address] [address] Performing Lab: [address] [address] GLUCOSE-HAND MONITOR 115 mg/dL H Sep 05, 2024 06:26 AM [facility] GLUCOSE-HAND MONITOR CAPILLARY Specime n Type: CAPILLARY Comment: AAMIR Correction Dose Test performed by: [id number] Meter #: [id number] Ordering Provider: FRANCK TURNER Report Released Date/Time: Sep 05, 2024 06:43 AM Reporting Lab: [address] [address] Performing Lab: [address] [address] GLUCOSE-HAND MONITOR 111 mg/dL H Sep 04, 2024 08:59 PM [facility] GLUCOSE-HAND MONITOR CAPILLARY Specime n Type: CAPILLARY Comment: AAMIR RN notified Test performed by: [id number] Meter #: [id number] Ordering Provider: FRANCK TURNER Report Released Date/Time: Sep 04, 2024 09:36 PM Reporting Lab: [address] [address] Performing Lab: [address] [address] GLUCOSE-HAND MONITOR 123 mg/dL H Sep 04, 2024 04:41 PM [facility] GLUCOSE-HAND MONITOR CAPILLARY Specime n Type: CAPILLARY Comment: AAMIR RN notified Test performed by: [id number] Meter #: [id number] Ordering Provider: FRANCK TURNER Report Released Date/Time: Sep 04, 2024 05:03 PM Reporting Lab: [address] [address] Performing Lab: [address] [address] GLUCOSE-HAND MONITOR 118 mg/dL H Sep 04, 2024 12:36 PM [facility] GLUCOSE-HAND MONITOR CAPILLARY Specime n Type: CAPILLARY Comment: AAMIR RN notified Test performed by: [id number] Meter #: [id number] Ordering Provider: FRANCK TURNER Report Released Date/Time: Sep 04, 2024 12:53 PM Reporting Lab: [address] [address] Performing Lab: [place] [address] GLUCOSE-HAND MONITOR 129 mg/dL H 71-99 Sep 04, 2024 12:03 PM [facility] RESPIRATORY VIRUS PANEL (BIOFIRE) NASOPHARYN X Specimen Type: NASOPHARYNX Comment: ~For Test: RESPIRATORY VIRUS PANEL (BIOFIRE) ~ORDER READ BACK TO: FRANCK TURNER 09/04/24@11:30 Ordering Provider: FRANCK TURNER Report Released Date/Time: Sep 04, 2024 11:33 AM Reporting Lab: [place] [phone] Performing Lab: [place] [address] ADENOVIRUS (BIOFIRE) Not Detected -Not D etected [...] 03, 2024 11:10 AM Reporting Lab: [place] [facility] [address] [facility] [address] Performing Lab: [place] [id number] [facility] [address] MAGNESIUM 1.8 mg/dL 1.6-2.6 Sep 04, 2024 [...] Sep 03, 2024 11:10 AM Reporting Lab: [address] [address] Performing Lab: [address] CREATININE 0.75 mg/dL 0.72-1.25 UREA NITROGEN [...] n Type: CAPILLARY Comment: Test performed by: [id number] Meter #: [id number] Ordering Provider: FRANCK TURNER Report Released Date/Time: Sep 04, 2024 06:28 AM Reporting Lab: [address] Performing Lab: [address] GLUCOSE-HAND MONITOR 114 mg/dL H 71-99 Sep 03, 2024 05:19 PM [facility] GLUCOSE-HAND MONITOR CAPILLARY Specime n Type: CAPILLARY Comment: Test performed by: [id number] Meter #: [id number] Ordering Provider: FRANCK TURNER Report Released Date/Time: Sep 03, 2024 05:37 PM Reporting Lab: [address] Performing Lab: [address] [address] GLUCOSE-HAND MONITOR 124 mg/dL H 71-99 Sep 03, 2024 04:41 PM [facility] GLUCOSE-HAND MONITOR CAPILLARY Specime n Type: CAPILLARY Comment: Test performed by: [id number] Meter #: [id number] Ordering Provider: FRANCK TURNER Report Released Date/Time: Sep 03, 2024 06:09 PM Reporting Lab: [address] [address] Performing Lab: [address] [address] GLUCOSE-HAND MONITOR 112 mg/dL H 71-99 Sep 03, 2024 01:35 PM [facility] URINE LYTES URINE Specimen Type : URINE Comment: ~Altered mental status with no identifiable cause Ordering Provider: FRANCK TURNER Report Released Date/Time: Sep 02, 2024 04:44 PM Reporting Lab: [address] [address] Performing Lab: [address] [address] SODIUM 130 mmol/L POTASSIUM 47.6 mmol/L CHLORIDE 137 mmol/L Sep 03, 2024 01:35 PM [facility] CREATININE URINE Specimen Type: URINE Comment: ~Altered mental status with no identifiable cause Ordering Provider: FRANCK TURNER Report Released Date/Time: Sep 02, 2024 04:44 PM Reporting Lab: [address] [address] Performing Lab: [address] [address] CREATININE 150.9 mg/dL Sep 03, 2024 01:35 PM [facility] OSMOLALITY URINE Specimen Type: URINE Comment: ~Altered mental status with no identifiable cause Ordering Provider: FRANCK TURNER Report Released Date/Time: Sep 02, 2024 04:44 PM Reporting Lab: [address] [address] Performing Lab: [address] [address] OSMOLALITY 522 mosm/kg 38-1400 Sep 03, 2024 01:35 PM [facility] URINALYSIS WITH REFLEX TO CULTURE URINE Specimen Type: URINE Comment: ~Altered mental status with no identifiable cause Ordering Provider: FRANCK TURNER Report Released Date/Time: Sep 02, 2024 04:44 PM Reporting Lab: [address] [address] Performing Lab: [address] [address] URINE COLOR Yellow Colorless-Yellow APPEARANCE CLOUDY H [...] Sep 02, 2024 04:44 PM Reporting Lab: [place] [phone] Performing Lab: [place] [address] UREA NITROGEN 320 mg/dL Sep 03, 2024 11:58 AM [facility] GLUCOSE-HAND MONITOR CAPILLARY Specime n Type: CAPILLARY Comment: AAMIR RN notified Test performed by: [id number] Meter #: [id number] Ordering Provider: FRANCK TURNER Report Released Date/Time: Sep 03, 2024 12:15 PM Reporting Lab: [place] [phone] Performing Lab: [place] [phone] GLUCOSE-HAND MONITOR 135 mg/dL H Sep 03, 2024 07:09 AM [facility] GLUCOSE-HAND MONITOR CAPILLARY Specime n Type: CAPILLARY Comment: Test performed by: [id number] Meter #: [id number] Ordering Provider: FRANCK TURNER Report Released Date/Time: Sep 03, 2024 07:26 AM Reporting Lab: [address] [address] Performing Lab: [place] [phone] GLUCOSE-HAND MONITOR 120 mg/dL H Sep 03, 2024 07:05 AM [facility] CBC/PLT BLOOD Specimen Type: BLOOD No comment entered. Ordering Provider: FRANCK TURNER Report Released Date/Time: Sep 02, 2024 04:29 PM Reporting Lab: [address] [address] Performing Lab: [address] [address] WBC 6.9 10*3/uL 5.0-10.0 RBC 3.48 10*6/uL [...] 02, 2024 04:29 PM Reporting Lab: [address] [address] Performing Lab: [address] [address] MAGNESIUM 1.7 mg/dL 1.6-2.6 Sep 03, 2024 [...] 02, 2024 04:29 PM Reporting Lab: [address] [address] Performing Lab: [address] [address] CREATININE 0.82 mg/dL 0.72-1.25 UREA NITROGEN 12 [...] BLOOD Comment: Prediabetes: 5.7%-6.4% Diabetes: >= 6.5% [facility] guidelines for A1c interpretation: Glycemic control targets are based on Shared Decision Making between clinicians and patients. Criteria used to establish an A1c target recommendation can be found at https://www.[place].gov/qualityandpatientsafety/ and include the use of result accuracy [...] 8.73 and 9.27. Ref: https://ngsp.org/CAPdata.asp. The in-house Inbenta-Qire D-100 analyzer has a historical CV <= 2%. Contact the laboratory for further performance characteristics of this assay. Ordering Provider: FRANCK TURNER Report Released Date/Time: Sep 02, 2024 04:29 PM Reporting Lab: [address] [address] Performing Lab: [place] [phone] GLYCOHEMOGLOBIN 5.6 4.4-5.6 Sep 03, 2024 07:05 AM [facility] OSMOLALITY SERUM Specimen Type: SERUM No comment entered. Ordering Provider: FRANCK TURNER Report Released Date/Time: Sep 02, 2024 04:44 PM Reporting Lab: [address] [address] Performing Lab: [address] [address] OSMOLALITY 271 mosm/kg L 280-300 Sep 02, 2024 08:15 PM [facility] GLUCOSE-HAND MONITOR CAPILLARY Specime n Type: CAPILLARY Comment: AAMIR DEXTER notified Test performed by: [id number] Meter #: [id number] Ordering Provider: FRANCK TURNER Report Released Date/Time: Sep 02, 2024 08:57 PM Reporting Lab: [address] [address] Performing Lab: [address] [address] GLUCOSE-HAND MONITOR 126 mg/dL H 71-99 Sep [...] 02, 2024 05:12 PM Reporting Lab: [address] [address] Performing Lab: [address] [address] MRSA SURVL NARES DNA Negative Negative Sep 02, 2024 05:36 PM [facility] GLUCOSE-HAND MONITOR CAPILLARY Specime n Type: CAPILLARY Comment: Test performed by: [id number] Meter #: [id number] Ordering Provider: FRANCK TURNER Report Released Date/Time: Sep 02, 2024 05:53 PM Reporting Lab: [address] [address] Performing Lab: [address] [address] GLUCOSE-HAND MONITOR 127 mg/dL H 71-99 Aug 29, 2024 10:04 PM [facility] URINALYSIS WITH REFLEX TO CULTURE URINE Specimen Type: URINE Comment: ~For Test: URINALYSIS WITH REFLEX TO CULTURE ~REORDER Ordering Provider: FELISA COLE Report Released Date/Time: Aug 29, 2024 09:36 PM Reporting Lab: [address] [address] Performing Lab: [address] [address] URINE COLOR Yellow Colorless-Yellow APPEARANCE Clear Clear [...] /[LPF] 0-28 Aug 29, 2024 08:32 PM [facility] HIGH SENSITIVITY TROPONIN I PLASMA Specimen [...] 29, 2024 07:55 PM Reporting Lab: [address] [address] Performing Lab: [address] [address] HIGH SENSITIVITY TROPONIN I 7 4-35 Aug 29, 2024 08:32 PM [facility] CBC/PLT BLOOD Specimen Type: BLOOD No comment entered. Ordering Provider: FELISA COLE Report Released Date/Time: Aug 29, 2024 07:55 PM Reporting Lab: [address] [address] Performing Lab: [address] [address] WBC 11.2 10*3/uL H 5.0-10.0 RBC 3.97 10*6/uL L 4.6-6.2 HGB 10.9 g/dL L 14.0-18.0 HCT 33.5 L 42.0-52.0 MCV 84.4 fL 80.0-94.0 MCH 27.5 pg 27.0-31.0 MCHC 32.5 g/dL 32.0-36.0 PLT 230 10*3/uL 150-450 MPV 10.2 fL 9.0-13.1 RDW 14.6 11.0-16.0 NRBC 0.0 0.0-0.0 Aug 29, 2024 08:32 PM [facility] PANEL 5 PLASMA Specimen Type: PLASM [...] 29, 2024 07:55 PM Reporting Lab: [address] [address] Performing Lab: [address] [address] CREATININE 0.85 mg/dL 0.72-1.25 UREA NITROGEN 15 [...] 18 /min 93 % 0 [place] Sep 03, 2024 04:38 PM 98.5 F 81 /min 129/76 mm[Hg] 15 /min 94 % 0 [facility] Sep 03, 2024 09:07 AM 98.0 F 94 /min 121/71 mm[Hg] 15 /min 90 % 0 [place] [facility] Sep 03, 2024 06:13 AM 217.5 lb 32 [place] Sep 03, 2024 04:41 AM 98.9 F 92 /min 124/71 mm[Hg] 20 /min 91 % 0 [place] [facility] Advance Directives: All historical and current [...] 08, 2024 ADVANCE DIRECTIVE DISCUSSION [facility] Radiology Reports: +/- 30 days [...] BRAIN W & W/O: LUIS MANUEL PERDOMO [id number] -1945 M Exm Date: SEP 06, 2024@13:40 [facility]q [facility]: 5-MED/TEL/09-06-2024@19:09 Img Loc: [facility] Service: [place] [address] (Case [id number] COMPLETE) MRI BRAIN W & W/O (MRI Detailed) CPT:72760 Contrast Media : Gadolinium Reason for Study: SEE CLINICAL HISTORY Pharmaceutical: GADOTERIDOL 279.3MG/ML 20ML INJ, 19ml Clinical History: MRI Screening (Required): IMPLANTED DEVICE DOCUMENTATION IMPLANTED DEVICE DOCUMENTATION NOT FOUND Does the have any Cardiac Implants? None Does the have any implanted stimulators? None Does the Bentley have cochlear implants? No Does the Bentley have Cerebral aneurysm clip(s)? I don't know Does the have any shrapnel? I don't know If yes, where in your body? Please list other implants not listed above: MRI table has a weight limit of 551 lbs. Bentley's Weight: *212 lb [96.16 kg] (09/04/2024 05:19) Is this patient claustrophobic?: No REASON FOR EXAM:MULTIPLE SCLEROSIS (indicate suspected or established) PERTINENT PATIENT HISTORY: MS c/f for flare Risk factors for GADOLINIUM NEPHROGENIC SYSTEMIC SCLEROSIS: Report Status: Verified Date Reported: SEP 06, 2024 Date Verified: SEP 06, 2024 Automation Sales Manager E-Sig: Report: MRI brain without and [...] Staff: ARCENIO LEYVA, Staff Radiologist Verified by tent finisher for ARCENIO LEYVA /ARCENIO AVILA [facility] Sep 06, 2024 01:40 PM MRI C SPINE W & W/ O CONTRAST(FURTHER SEQUENCES): LUIS MANUEL PERDOMO [id number] -1945 M Exm Date: SEP 06, 2024@13:40 Req Phys: AZARFRANCK WHEELER Pat Loc: 5-MED/TEL/09-07-2024@06:42 Img Loc: [facility] Service: [place] [address] (Case [id number] COMPLETE) MRI C SPINE W & W/O CONTRAST(FURT(MRI Detailed) CPT:45314 Contrast Media : Gadolinium Reason for Study: SEE CLINICAL HISTORY Pharmaceutical: GADOTERIDOL 279.3MG/ML 20ML INJ, 19ml Clinical History: STATUS OF PLAIN FILMS:Not performed (Provide justification for MR W/O prior plain films below.) MRI for MS MRI Screening (Required): IMPLANTED DEVICE DOCUMENTATION IMPLANTED DEVICE DOCUMENTATION NOT FOUND Does the have any Cardiac Implants? None Does the Bentley have any implanted stimulators? None Does the have cochlear implants? No Does the Bentley have Cerebral aneurysm clip(s)? I don't know [...] 07, 2024 Date Verified: SEP 07, 2024 Automation Sales Manager E-Sig: Report: EXAMINATION: MRI OF THE [...] Interpreting Staff: HUANG TAI, Radiologist Verified by tent finisher for HUANG TAI /HUANG WHEATLEY-Sav [facility] Sep 03, 2024 10:45 AM CHEST SINGLE(1) EW: LUIS MANUEL PERDOMO [id number] -1945 M Ex Date: SEP 03, 2024@10:45 Req Phys: FRANCK TURNER Pat Loc: 5-MED/TEL/09-03-2024@10:56 Img Loc: [facility] RADIOLOGY Service: [place] [address] (Case [id number] COMPLETE)CHEST SINGLE(1) VIEW (RAD Detailed) CPT:15650 Proc Modifiers : PORTABLE EXAM Reason for Study: Eval volume status Clinical History: Report Status: Verified Date Reported: SEP 03, 2024 Date Verified: SEP 03, 2024 Automation Sales Manager E-Sig: Report: EXAMINATION: SINGLE VIEW CHEST [...] Interpreting Staff: HUANG TAI, Radiologist Verified by tent finisher for HUANG TAI /HUANG WHEATLEY-[facility] Aug 29, 2024 08:[address] HEAD W/O CONT: LUIS MANUEL PERDOMO [id number] -1945 M Exm Date: AUG 29, 2024@20:28 Req Phys: FELISA COLE Loc: ED/4P-12A (Req'g Loc) Img Loc: CT SCAN Service: [place] [address] (Case [id number] COMPLETE) CT HEAD W/O CONT (CT Detailed) CPT:87879 Reason for Study: SEE CLINICAL HISTORY Clinical History: REASON FOR SEND OUT: ATTENDING PHYSICIAN NAME: New transient neurological s/s - suspected TIA HISTORY/REASON FOR EXAM: confusion Report Status: Verified Date Reported: AUG 29, 2024 Date Verified: AUG 29, 2024 Automation Sales Manager E-Sig: Report: HISTORY confusion COMPARISON No [...] Staff: ABDIRAHMAN CROW, Staff Physician Verified by tent finisher for ABDIRAHMAN CROW /GUERITA CROW,ABDIRAHMAN [facility] Pathology Reports: +/- 30 days [...] Lab: [facility] [CLIA# [id number]] [address] [place] [id number] Accession [UID]: [id number] [[id number]] Received: Sep 03, 2024@14:02 Collection sample: URINE, [...] By: [facility] [CLIA# [id number]] [address] [place], [place] [id number] MAGDY CALABRESE [facility] Sep 02, 2024 06:00 PM LR MICROBIOLOGY RE PORT: Reporting Lab: [facility] [IA# [id number]] [address] [place], [place] [id number] Accession [UID]: [id number] [[id number]] Received: Sep 02, 2024@18:07 Collection sample: BLD CULTURE BOTTLES Collection date: Sep 02, 2024 18:00 Site/Specimen: BLOOD Provider: FRANCK TURNER Comment on specimen: L HAND Test(s) ordered: CULTURE, BLOOD................ completed: Sep 08, 2024 * BACTERIOLOGY FINAL REPORT => Sep 08, 2024 08:25 TECH CODE: [id number] Bacteriology Remark(s): Blood culture status=NO GROWTH (unless notified otherwise) 09/03/2024 AEROBIC: NO GROWTH ANAEROBIC: NO GROWTH =--=--=--=--=--=--=--=--=--=-- =--=--=--=--=--=--=--=--=--=-- =--=--=--=--=--=-- Performing Laboratory: Bacteriology Report Performed By: [facility] [CLIA# [id number]] [address] [place], [place] [id number] MAD[facility] Aug 29, 2024 10:18 PM LR MICROBIOLOGY RE PORT: Reporting Lab: [facility] [CLIA# [id number]] [address] [place], [place] [id number] Accession [UID]: [id number] [[id number]] Received: Aug 29, 2024@22:18 Collection sample: URINE, CLEAN CATCH Collection date: Aug 29, 2024 22:18 Site/Specimen: URINE Provider: FELISA COLE Test(s) ordered: CULTURE, URINE................ completed: Aug 31, 2024 09:51 * BACTERIOLOGY FINAL REPORT => Aug 31, 2024 09:51 TECH CODE: [id number] Bacteriology Remark(s): NO GROWTH 08/30/2024 <10,000 CFU/ML. 08/31/2024 =--=--=--=--=--=--=--=--=--=-- =--=--=--=--=--=--=--=--=--=-- =--=--=--=--=--=-- Performing Laboratory: Bacteriology Report Performed By: [facility] [CLIA# [id number]] [address] [place] [address] MAG[facility]ABRESE[facility]
--- OUTSIDE RECORDS SUMMARY | 2024-09-03 08:46 | XMS_ITS | Encounter Summary ---
Author Name [facility] [place] Organization [facility] [place] Address [address] [place] [address] Care Team Providers Care Professor Of German Name Role Phone YULISSA HENDERSON Primary Care [...] PLAN F Mar 24, 2014 PLAN F [id number] LUIS MANUEL PERDOMO PATIENT [facility] [place] [facility] PREFERRED PROVIDER ORGANIZAT ION (PPO) [facility] Sep 21, 2012 [id number] [phone] LUIS MANUEL PERDOMO PATIENT [facility] ([id number]) PRESCRIPT ION WL3A Sep 21, 2012 [id number] LUIS MANUEL PERDOMO PATIENT MEDICARE (WNR) MEDICARE (M) PART B Sep 21, 2012 PART B [id number] NOEMI PERDOMO PATIENT MEDICARE (WNR) MEDICARE (M) PART A Jan 22, 2011 PART A [id number] [phone] NOEMI PERDOMO PATIENT MEDICARE PART D (WNR) MEDICARE (M) PART D Mar 24, 2014 PART D [id number] LUIS MANUEL PERDOMO PATIENT Selected Encounter This section includes the information on record at [place] for the Encounter. Date/Time Encounter Type Encounter Description Reason Provider Source Sep 03, 2024 12:46 PM IP/OBS CNSLTJ NEW/EST MOD 60 NEUROSURGERY SISSY BARBER IHStephen Encounter Template Text not used by [place] [...] 08:00 AM AM[place]ULATORY - NONE [place] [facility] Sep 30, 2024 01:30 PM AMBULATORY - SURGERY [place] [facility] Active, Pending, and Scheduled Orders This section includes a listing of several types of active, pending, and scheduled orders, including clinic medications orders, diagnostic test orders, procedure orders and consult orders; where the start date of the order is 45 days before the date of the Encounter or 45 days after the date of theEncounter. The data comes from all [place] treatment facilities. Test Date/Time Test Type Test Details Facility Name Sep 13, 2024 01:33 PM Consult Order [facility] Cons Fingerprinter[facility] Choice [facility] Lab Results: +/- [...] Sep 09, 2024 12:16 PM [facility] GLUCOSE-HAND MONITOR CAPILLARY Specimen Type: CAPILLARY Comment: Test performed by: [id number] Meter #: [id number] Ordering Provider: FRANCK TURNER Report Released Date/Time: Sep 09, 2024 12:33 PM Reporting Lab: [address] [address] Performing Lab: [address] [address] GLUCOSE-HAND MONITOR 116 mg/dL H Sep 09, 2024 06:07 AM [facility] GLUCOSE-HAND MONITOR CAPILLARY Specime n Type: CAPILLARY Comment: Test performed by: [id number] Meter #: [id number] Ordering Provider: FRANCK TURNER Report Released Date/Time: Sep 09, 2024 08:17 AM Reporting Lab: [address] [address] Performing Lab: [address] [address] GLUCOSE-HAND MONITOR 112 mg/dL H Sep 08, 2024 09:13 PM [facility] GLUCOSE-HAND MONITOR CAPILLARY Specime n Type: CAPILLARY Comment: Test performed by: [id number] Meter #: [id number] Ordering Provider: FRANCK TURNER Report Released Date/Time: Sep 08, 2024 09:31 PM Reporting Lab: [address] [address] Performing Lab: [address] [address] GLUCOSE-HAND MONITOR 107 mg/dL H Sep 08, 2024 03:49 PM [facility] GLUCOSE-HAND MONITOR CAPILLARY Specime n Type: CAPILLARY Comment: AAMIR RN notified Test performed by: [id number] Meter #: [id number] Ordering Provider: FRANCK TURNER Report Released Date/Time: Sep 08, 2024 04:33 PM Reporting Lab: [address] [address] Performing Lab: [address] [address] GLUCOSE-HAND MONITOR 162 mg/dL H Sep 08, 2024 11:43 AM [facility] GLUCOSE-HAND MONITOR CAPILLARY Specime n Type: CAPILLARY Comment: AAMIR RN notified Test performed by: [id number] Meter #: [id number] Ordering Provider: FRANCK TURNER Report Released Date/Time: Sep 08, 2024 12:03 PM Reporting Lab: [place] [phone] Performing Lab: [address] [address] GLUCOSE-HAND MONITOR 133 mg/dL H Sep 08, 2024 06:13 AM [facility] GLUCOSE-HAND MONITOR CAPILLARY Specime n Type: CAPILLARY Comment: Test performed by: [id number] Meter #: [id number] Ordering Provider: FRANCK TURNER Report Released Date/Time: Sep 08, 2024 06:46 AM Reporting Lab: [place] [phone] Performing Lab: [place] [phone] GLUCOSE-HAND MONITOR 104 mg/dL H Sep 07, 2024 07:59 PM [facility] GLUCOSE-HAND MONITOR CAPILLARY Specime n Type: CAPILLARY Comment: Test performed by: [id number] Meter #: [id number] Ordering Provider: FRANCK TURNER Report Released Date/Time: Sep 07, 2024 09:05 PM Reporting Lab: [place] [phone] Performing Lab: [address] [address] GLUCOSE-HAND MONITOR 107 mg/dL H Sep 07, 2024 04:39 PM [facility] GLUCOSE-HAND MONITOR CAPILLARY Specime n Type: CAPILLARY Comment: Test performed by: [id number] Meter #: [id number] Ordering Provider: FRANCK TURNER Report Released Date/Time: Sep 07, 2024 05:09 PM Reporting Lab: [place] [phone] Performing Lab: [address] [address] GLUCOSE-HAND MONITOR 105 mg/dL H Sep 07, 2024 11:41 AM [facility] GLUCOSE-HAND MONITOR CAPILLARY Specime n Type: CAPILLARY Comment: Test performed by: [id number] Meter #: [id number] Ordering Provider: FRANCK TURNER Report Released Date/Time: Sep 07, 2024 12:41 PM Reporting Lab: [place] [phone] Performing Lab: [place] [phone] GLUCOSE-HAND MONITOR 144 mg/dL H Sep 07, 2024 05:56 AM [facility] GLUCOSE-HAND MONITOR CAPILLARY Specime n Type: CAPILLARY Comment: Test performed by: [id number] Meter #: [id number] Ordering Provider: FRANCK TURNER Report Released Date/Time: Sep 07, 2024 06:31 AM Reporting Lab: [place] [phone] Performing Lab: [place] [phone] GLUCOSE-HAND MONITOR 96 mg/dL Sep 06, 2024 08:10 PM [facility] GLUCOSE-HAND MONITOR CAPILLARY Specime n Type: CAPILLARY Comment: Test performed by: [id number] Meter #: [id number] Ordering Provider: FRANCK TURNER Report Released Date/Time: Sep 06, 2024 08:52 PM Reporting Lab: [place] [phone] Performing Lab: [place] [phone] GLUCOSE-HAND MONITOR 124 mg/dL H Sep 06, 2024 04:27 PM [facility] GLUCOSE-HAND MONITOR CAPILLARY Specime n Type: CAPILLARY Comment: Test performed by: [id number] Meter #: [id number] Ordering Provider: FRANCK TURNER Report Released Date/Time: Sep 06, 2024 05:15 PM Reporting Lab: [place] [phone] Performing Lab: [place] [phone] GLUCOSE-HAND MONITOR 107 mg/dL H Sep 06, 2024 12:12 PM [facility] GLUCOSE-HAND MONITOR CAPILLARY Specime n Type: CAPILLARY Comment: Test performed by: [id number] Meter #: [id number] Ordering Provider: FRANCK TURNER Report Released Date/Time: Sep 06, 2024 12:29 PM Reporting Lab: [address] [address] Performing Lab: [address] [address] GLUCOSE-HAND MONITOR 181 mg/dL H Sep 06, 2024 06:13 AM [facility] GLUCOSE-HAND MONITOR CAPILLARY Specime n Type: CAPILLARY Comment: Test performed by: [id number] Meter #: [id number] Ordering Provider: FRANCK TURNER Report Released Date/Time: Sep 06, 2024 06:36 AM Reporting Lab: [address] [address] Performing Lab: [place] [phone] GLUCOSE-HAND MONITOR 102 mg/dL H Sep 05, 2024 08:47 PM [facility] GLUCOSE-HAND MONITOR CAPILLARY Specime n Type: CAPILLARY Comment: Test performed by: [id number] Meter #: [id number] Ordering Provider: FRANCK TURNER Report Released Date/Time: Sep 06, 2024 02:13 AM Reporting Lab: [address] [address] Performing Lab: [address] [address] GLUCOSE-HAND MONITOR 103 mg/dL H Sep 05, 2024 04:40 PM [facility] GLUCOSE-HAND MONITOR CAPILLARY Specime n Type: CAPILLARY Comment: AAMIR RN notified Test performed by: [id number] Meter #: [id number] Ordering Provider: FRANCK TURNER Report Released Date/Time: Sep 05, 2024 05:11 PM Reporting Lab: [address] [address] Performing Lab: [address] [address] GLUCOSE-HAND MONITOR 113 mg/dL H Sep 05, 2024 12:06 PM [facility] GLUCOSE-HAND MONITOR CAPILLARY Specime n Type: CAPILLARY Comment: Test performed by: [id number] Meter #: [id number] Ordering Provider: FRANCK TURNER Report Released Date/Time: Sep 05, 2024 12:23 PM Reporting Lab: [address] [address] Performing Lab: [address] [address] GLUCOSE-HAND MONITOR 115 mg/dL H -Sep 05, 2024 06:26 AM [facility] GLUCOSE-HAND MONITOR CAPILLARY Specime n Type: CAPILLARY Comment: AAMIR Correction Dose Test performed by: [id number] Meter #: [id number] Ordering Provider: FRANCK TURNER Report Released Date/Time: Sep 05, 2024 06:43 AM Reporting Lab: [address] [address] Performing Lab: [address] [address] GLUCOSE-HAND MONITOR 111 mg/dL H Sep 04, 2024 08:59 PM [facility] GLUCOSE-HAND MONITOR CAPILLARY Specime n Type: CAPILLARY Comment: AAMIR RN notified Test performed by: [id number] Meter #: [id number] Ordering Provider: FRANCK TURNER Report Released Date/Time: Sep 04, 2024 09:36 PM Reporting Lab: [address] [address] Performing Lab: [address] [address] GLUCOSE-HAND MONITOR 123 mg/dL H Sep 04, 2024 04:41 PM [facility] GLUCOSE-HAND MONITOR CAPILLARY Specime n Type: CAPILLARY Comment: AAMIR RN notified Test performed by: [id number] Meter #: [id number] Ordering Provider: FRANCK TURNER Report Released Date/Time: Sep 04, 2024 05:03 PM Reporting Lab: [address] [address] Performing Lab: [address] [address] GLUCOSE-HAND MONITOR 118 mg/dL H Sep 04, 2024 12:36 PM [facility] GLUCOSE-HAND MONITOR CAPILLARY Specime n Type: CAPILLARY Comment: AAMIR RN notified Test performed by: [id number] Meter #: [id number] Ordering Provider: FRANCK TURNER Report Released Date/Time: Sep 04, 2024 12:53 PM Reporting Lab: [place] [phone] Performing Lab: [place] [phone] GLUCOSE-HAND MONITOR 129 mg/dL H Sep 04, 2024 12:03 PM [facility] RESPIRATORY VIRUS PANEL (BIOFIRE) NASOPHARYN X Specimen Type: NASOPHARYNX Comment: ~For Test: RESPIRATORY VIRUS PANEL (BIOFIRE) ~ORDER READ BACK TO: FRANCK TURNER 09/04/24@11:30 Ordering Provider: FRANCK TURNER Report Released Date/Time: Sep 04, 2024 11:33 AM Reporting Lab: [place] [phone] Performing Lab: [place] [phone] ADENOVIRUS (BIOFIRE) Not Detected -Not D etected [...] -Not Detected Sep 04, 2024 06:55 AM [facility] MAGNESIUM PLASMA Specimen Type: PLASM A [...] Sep 03, 2024 11:10 AM Reporting Lab: [facility] [address] [facility] [address] Performing Lab: [facility] [address] [place] [address] MAGNESIUM 1.8 mg/dL 1.6-2.6 Sep 04, 2024 06:55 AM [facility] PANEL 1 PLASMA Specimen Type: PLASM [...] Sep 03, 2024 11:10 AM Reporting Lab: [address] [address] Performing Lab: [address] [address] CREATININE 0.75 mg/dL 0.72-1.25 UREA NITROGEN 13 mg/dL 9-25 GLUCOSE 105 mg/dL H 74-100 SODIUM 128 mmol/L L 136-145 POTASSIUM 3.9 mmol/L 3.5-5.1 CHLORIDE 99 mmol/L 98-107 CO2 21 mmol/L L 22-29 CALCIUM 8.0 mg/dL L 8.4-10.2 ANION GAP 8 meq/L 3-19 eGFR (CKD-EPI) >90 Sep 04, 2024 06:02 AM [facility] GLUCOSE-HAND MONITOR CAPILLARY Specime n Type: CAPILLARY Comment: Test performed by: [id number] Meter #: [id number] Ordering Provider: FRANCK TURNER Report Released Date/Time: Sep 04, 2024 06:28 AM Reporting Lab: [address] [address] Performing Lab: [address] [address] GLUCOSE-HAND MONITOR 114 mg/dL H 71-99 Sep 03, 2024 05:19 PM [facility] GLUCOSE-HAND MONITOR CAPILLARY Specime n Type: CAPILLARY Comment: Test performed by: [id number] Meter #: [id number] Ordering Provider: FRANCK TURNER Report Released Date/Time: Sep 03, 2024 05:37 PM Reporting Lab: [address] [address] Performing Lab: [address] [address] GLUCOSE-HAND MONITOR 124 mg/dL H 71-99 Sep 03, 2024 04:41 PM [facility] GLUCOSE-HAND MONITOR CAPILLARY Specime n Type: CAPILLARY Comment: Test performed by: [id number] Meter #: [id number] Ordering Provider: FRANCK TURNER Report Released Date/Time: Sep 03, 2024 06:09 PM Reporting Lab: [address] [address] Performing Lab: [address] [address] GLUCOSE-HAND MONITOR 112 mg/dL H 71-99 Sep 03, 2024 01:35 PM [facility] URINE LYTES URINE Specimen Type : URINE Comment: ~Altered mental status with no identifiable cause Ordering Provider: FRANCK TURNER Report Released Date/Time: Sep 02, 2024 04:44 PM Reporting Lab: [address] [address] Performing Lab: [address] [address] SODIUM 130 mmol/L POTASSIUM 47.6 mmol/L CHLORIDE 137 mmol/L Sep 03, 2024 01:35 PM [facility] CREATININE URINE Specimen Type: URINE Comment: ~Altered mental status with no identifiable cause Ordering Provider: FRANCK TURNER Report Released Date/Time: Sep 02, 2024 04:44 PM Reporting Lab: [address] [address] Performing Lab: [address] [address] CREATININE 150.9 mg/dL Sep 03, 2024 01:35 PM [facility] UREA NITROGEN URINE Specimen Type : URINE Comment: ~Altered mental status with no identifiable cause Ordering Provider: FRANCK TURNER Report Released Date/Time: Sep 02, 2024 04:44 PM Reporting Lab: [address] [address] Performing Lab: [address] [address] UREA NITROGEN 320 mg/dL Sep 03, 2024 01:35 PM [facility] URINALYSIS WITH REFLEX TO CULTURE URINE Specimen Type: URINE Comment: ~Altered mental status with no identifiable cause Ordering Provider: FRANCK TURNER Report Released Date/Time: Sep 02, 2024 04:44 PM Reporting Lab: [address] [address] Performing Lab: [address] [address] URINE COLOR Yellow Colorless-Yellow APPEARANCE CLOUDY H [...] H 0-28 Sep 03, 2024 01:35 PM [facility] OSMOLALITY URINE Specimen Type: URINE Comment: ~Altered mental status with no identifiable cause Ordering Provider: FRANCK TURNER Report Released Date/Time: Sep 02, 2024 04:44 PM Reporting Lab: [place] [phone] Performing Lab: [place] [phone] OSMOLALITY 522 mosm/kg 38-1400 Sep 03, 2024 11:58 AM [facility] GLUCOSE-HAND MONITOR CAPILLARY Specime n Type: CAPILLARY Comment: AAMIR RN notified Test performed by: [id number] Meter #: [id number] Ordering Provider: FRANCK TURNER Report Released Date/Time: Sep 03, 2024 12:15 PM Reporting Lab: [address] [address] Performing Lab: [address] [address] GLUCOSE-HAND MONITOR 135 mg/dL H 71-99 Sep 03, 2024 07:09 AM [facility] GLUCOSE-HAND MONITOR CAPILLARY Specime n Type: CAPILLARY Comment: Test performed by: [id number] Meter #: [id number] Ordering Provider: FRANCK TURNER Report Released Date/Time: Sep 03, 2024 07:26 AM Reporting Lab: [address] [address] Performing Lab: [address] [address] GLUCOSE-HAND MONITOR 120 mg/dL H 71-99 Sep 03, 2024 07:05 AM [facility] CBC/PLT BLOOD Specimen Type: BLOOD No comment entered. Ordering Provider: FRANCK TURNER Report Released Date/Time: Sep 02, 2024 04:29 PM Reporting Lab: [place] [id number] [facility] [address] Performing Lab: [address] [address] WBC 6.9 10*3/uL 5.0-10.0 RBC 3.48 10*6/uL L 4.6-6.2 HGB 9.5 g/dL L 14.0-18.0 HCT 29.1 L 42.0-52.0 MCV 83.6 fL 80.0-94.0 MCH 27.3 pg 27.0-31.0 MCHC 32.6 g/dL 32.0-36.0 PLT 258 10*3/uL 150-450 MPV 10.3 fL 9.0-13.1 RDW 14.8 11.0-16.0 NRBC 0.0 0.0-0.0 Sep 03, 2024 07:05 AM [facility] MAGNESIUM PLASMA Specimen Type: PLASM A [...] Sep 02, 2024 04:29 PM Reporting Lab: [address] [address] Performing Lab: [address] [address] MAGNESIUM 1.7 mg/dL 1.6-2.6 Sep 03, 2024 07:05 AM [facility] PANEL 1 PLASMA Specimen Type: PLASM [...] Sep 02, 2024 04:29 PM Reporting Lab: [address] [address] Performing Lab: [address] [address] CREATININE 0.82 mg/dL 0.72-1.25 UREA NITROGEN 12 mg/dL 9-25 GLUCOSE 109 mg/dL H 74-100 SODIUM 129 mmol/L L 136-145 POTASSIUM 4.2 mmol/L 3.5-5.1 CHLORIDE 99 mmol/L 98-107 CO2 21 mmol/L L 22-29 CALCIUM 8.1 mg/dL L 8.4-10.2 ANION GAP 9 meq/L 3-19 eGFR (CKD-EPI) 90 Sep 03, 2024 07:05 AM [facility] GLYCOHEMOGLOBIN BLOOD Specimen Type: BLOOD Comment: Prediabetes: 5.7%-6.4% Diabetes: >= 6.5% [facility] guidelines for A1c interpretation: Glycemic control targets are based on Shared Decision Making between clinicians and patients. Criteria used to establish an A1c target recommendation can be found at https://www.ms.gov/qualityandpatientsafety/ and include the use of result accuracy [...] 8.73 and 9.27. Ref: https://ngsp.org/CAPdata.asp. The in-house [employer]-F2G D-100 analyzer has a historical CV <= 2%. Contact the laboratory for further performance characteristics of this assay. Ordering Provider: FRANCK TURNER Report Released Date/Time: Sep 02, 2024 04:29 PM Reporting Lab: [address] [address] Performing Lab: [place] [phone] GLYCOHEMOGLOBIN 5.6 4.4-5.6 Sep 03, 2024 07:05 AM [facility] OSMOLALITY SERUM Specimen Type: SERUM No comment entered. Ordering Provider: FRANCK TURNER Report Released Date/Time: Sep 02, 2024 04:44 PM Reporting Lab: [address] [address] Performing Lab: [address] [address] OSMOLALITY 271 mosm/kg L 280-300 Sep 02, 2024 08:15 PM [facility] GLUCOSE-HAND MONITOR CAPILLARY Specime n Type: CAPILLARY Comment: AAMIR RN notified Test performed by: [id number] Meter #: [id number] Ordering Provider: FRANCK TURNER Report Released Date/Time: Sep 02, 2024 08:57 PM Reporting Lab: [address] [address] Performing Lab: [address] [address] GLUCOSE-HAND MONITOR 126 mg/dL H 71-99 Sep 02, 2024 06:10 PM [facility] MRSA SURVL NARES DNA NARES Specime [...] Sep 02, 2024 05:12 PM Reporting Lab: [address] [address] Performing Lab: [address] [address] MRSA SURVL NARES DNA Negative Negative Sep 02, 2024 05:36 PM [facility] GLUCOSE-HAND MONITOR CAPILLARY Specime n Type: CAPILLARY Comment: Test performed by: [id number] Meter #: [id number] Ordering Provider: FRANCK TURNER Report Released Date/Time: Sep 02, 2024 05:53 PM Reporting Lab: [address] [address] Performing Lab: [address] [address] GLUCOSE-HAND MONITOR 127 mg/dL H 71-99 Aug 29, 2024 10:04 PM [facility] URINALYSIS WITH REFLEX TO CULTURE URINE Specimen Type: URINE Comment: ~For Test: URINALYSIS WITH REFLEX TO CULTURE ~REORDER Ordering Provider: FELISA COLE Report Released Date/Time: Aug 29, 2024 09:36 PM Reporting Lab: [address] [address] Performing Lab: [address] [address] URINE COLOR Yellow Colorless-Yellow APPEARANCE Clear Clear [...] /[LPF] 0-28 Aug 29, 2024 08:32 PM [facility] HIGH SENSITIVITY TROPONIN I PLASMA Specimen Ty [...] I information resource can be reached in [facility] in the Tools menu, under [...] Aug 29, 2024 07:55 PM Reporting Lab: [address] [address] Performing Lab: [address] [address] HIGH SENSITIVITY TROPONIN I 7 4-35 Aug 29, 2024 08:32 PM [facility] CBC/PLT BLOOD Specimen Type: BLOOD No comment entered. Ordering Provider: FELISA COLE Report Released Date/Time: Aug 29, 2024 07:55 PM Reporting Lab: [address] [address] Performing Lab: [address] [address] WBC 11.2 10*3/uL H 5.0-10.0 RBC 3.97 10*6/uL L 4.6-6.2 HGB 10.9 g/dL L 14.0-18.0 HCT 33.5 L 42.0-52.0 MCV 84.4 fL 80.0-94.0 MCH 27.5 pg 27.0-31.0 MCHC 32.5 g/dL 32.0-36.0 PLT 230 10*3/uL 150-450 MPV 10.2 fL 9.0-13.1 RDW 14.6 11.0-16.0 NRBC 0.0 0.0-0.0 Aug 29, 2024 08:32 PM [facility] PANEL 5 PLASMA Specimen Type: PLASM [...] Aug 29, 2024 07:55 PM Reporting Lab: [address] [address] Performing Lab: [address] [address] CREATININE 0.85 mg/dL 0.72-1.25 UREA NITROGEN 15 [...] /min 93 % 0 [place] Sep 03, 2024 04:38 PM 98.5 F 81 /min 129/76 mm[Hg] 15 /min 94 % [address] [place] Sep 03, 2024 09:07 AM 98.0 F 94 /min 121/71 mm[Hg] 15 /min 90 % [address] [place] Sep 03, 2024 06:13 AM 217.5 lb 32 [place] Sep 03, 2024 04:41 AM 98.9 F 92 /min 124/71 mm[Hg] 20 /min 91 % [address] [place] [facility] Advance Directives: All historical and current Section Date Range: From patient's date of to the date document was created. This section includes ALL of a patient's completed or amended DC Advance and Rescinded Directives. The entries below indicate that a directive exists for the patient, but an actual copy is not included with this document. The data comes from all [facility]. Date Advance Directives Provider Source Mar 08, 2024 ADVANCE DIRECTIVE DISCUSSION [facility] Radiology Reports: +/- 30 days of the [...] BRAIN W & W/O: LUIS MANUEL PERDOMO [id number] -1945 M Exm Date: SEP 06, 2024@13:40 Req Phys: FRANCK TURNER Faith Loc: 5-MED/TEL/09-06-2024@19:09 Img Loc: [facility] Service: [place] [address] (Case [id number] COMPLETE) MRI BRAIN W & W/O (MRI Detailed) CPT:82286 Contrast Media : Gadolinium Reason for Study: SEE CLINICAL HISTORY Pharmaceutical: GADOTERIDOL 279.3MG/ML 20ML INJ, 19ml Clinical History: MRI Screening (Required): IMPLANTED DEVICE DOCUMENTATION IMPLANTED DEVICE DOCUMENTATION NOT FOUND Does the [place] have any Cardiac Implants? None Does the have any implanted stimulators? None Does the have cochlear implants? No Does the [place] have Cerebral aneurysm clip(s)? I don't know Does the [place] have any shrapnel? I don't know If yes, where in your body? Please list other implants not listed above: MRI table has a weight limit of 551 lbs. [place]'s Weight: *212 lb [96.16 kg] (09/04/2024 05:19) Is this patient claustrophobic?: No REASON FOR EXAM:MULTIPLE SCLEROSIS (indicate suspected or established) PERTINENT PATIENT HISTORY: MS c/f for flare Risk factors for GADOLINIUM NEPHROGENIC SYSTEMIC SCLEROSIS: Report Status: Verified Date Reported: SEP 06, 2024 Date Verified: SEP 06, 2024 Electronic Imaging System Operator E-Sig: Report: MRI brain without and with [...] Staff: ARCENIO LEYVA, Staff Radiologist Verified by camp maintenance supervisor for ARCENIO LEYVA /ARCENIO [facility] Sep 06, 2024 01:40 PM MRI C SPINE W & W/ O CONTRAST(FURTHER SEQUENCES): LUIS MANUEL PERDOMO [id number] -1945 M Exm Date: SEP 06, 2024@13:40 Req Phys: FRANCK TURNERISIAHFLOSav Pat Loc: 5-MED/TEL/09-07-2024@06:42 Img Loc: [facility] Service: [place] [address] (Case [id number] COMPLETE) MRI C SPINE W & W/O CONTRAST(FURT(MRI Detailed) CPT:10221 Contrast Media : Gadolinium Reason for Study: SEE CLINICAL HISTORY Pharmaceutical: GADOTERIDOL 279.3MG/ML 20ML INJ, 19ml Clinical History: STATUS OF PLAIN FILMS:Not performed (Provide justification for MR W/O prior plain films below.) MRI for MS MRI Screening (Required): IMPLANTED DEVICE DOCUMENTATION IMPLANTED DEVICE DOCUMENTATION NOT FOUND Does the [place] have any Cardiac Implants? None Does the [place] have any implanted stimulators? None Does the have cochlear implants? No Does the [place] have Cerebral aneurysm clip(s)? I don't know Does the [place] have any shrapnel? I don't know If yes, where in your body? Please list other implants not listed above: MRI table has a weight limit of 551 lbs. [place]'s Weight: *212 lb [96.16 kg] (09/04/2024 05:19) Is this patient claustrophobic?: No REASON FOR EXAM: MULTIPLE SCLEROSIS (indicate suspected or established) PERTINENT PATIENT HISTORY: MS c/f flare Risk factors for GADOLINIUM NEPHROGENIC SYSTEMIC SCLEROSIS: Report Status: Verified Date Reported: SEP 07, 2024 Date Verified: SEP 07, 2024 Electronic Imaging System Operator E-Sig: Report: EXAMINATION: MRI OF THE CERVICAL [...] Interpreting Staff: HUANG TAI, Radiologist Verified by camp maintenance supervisor for HUANG TAI /HUANG WHE[facility] Sep 03, 2024 10:45 AM CHEST SINGLE(1) EW: LUIS MANUEL PERDOMO [id number] -1945 M Exm Date: SEP 03, 2024@10:45 Req Phys: FRANCK TURNER Pat Loc: 5-MED/TEL/09-03-2024@10:56 Img Loc: [facility] Service: [facility] [place] [id number] (Case [id number] COMPLETE)CHEST SINGLE(1) VIEW (RAD Detailed) CPT:70007 Proc Modifiers : PORTABLE EXAM Reason for Study: Eval volume status Clinical History: Report Status: Verified Date Reported: SEP 03, 2024 Date Verified: SEP 03, 2024 Electronic Imaging System Operator E-Sig: Report: EXAMINATION: SINGLE VIEW CHEST CLINICAL [...] Interpreting Staff: HUANG TAI, Radiologist Verified by camp maintenance supervisor for HUANG TAI /HUANG WHEATLEY-D [facility] Aug 29, 2024 08:[address] HEAD W/O CONT: LUIS MANUEL PERDOMO [id number] -[id number] M Exm Date: AUG 29, 2024@20:28 Req Phys: FELISA COLE Loc: ED/4P-12A (Req'g Loc) Img Loc: CT SCAN Service: [place] [address] (Case [id number] COMPLETE) CT HEAD W/O CONT (CT Detailed) CPT:96232 Reason for Study: SEE CLINICAL HISTORY Clinical History: REASON FOR SEND OUT: ATTENDING PHYSICIAN NAME: New transient neurological s/s - suspected TIA HISTORY/REASON FOR EXAM: confusion Report Status: Verified Date Reported: AUG 29, 2024 Date Verified: AUG 29, 2024 Electronic Imaging System Operator E-Sig: Report: HISTORY confusion COMPARISON No prior [...] Staff: ABDIRAHMAN CROW, Staff Physician Verified by camp maintenance supervisor for ABDIRAHMAN CROW /GUERITA CROW,ABDIRAHMAN [facility] Pathology Reports: +/- 30 days of the [...] comes from all [place] treatment facilities. Date/Time Pathology Report Provider Source Sep 03, 2024 01:35 PM LR MICROBIOLOGY RE PORT: Reporting Lab: [facility] [CLIA# [id number]] [address] [place] [id number] Accession [UID]: [id number] [[id number]] Received: Sep 03, 2024@14:02 Collection sample: URINE, [...] Report Performed By: [facility] [CLIA# [id number]] [address] [place], [place] [address] MAGDY CALABRESE [facility] Sep 02, 2024 06:00 PM LR MICROBIOLOGY RE PORT: Reporting Lab: [facility] [IA# [id number]] [address] [place], [place] [address] Accession [UID]: [id number] [[id number]] Received: Sep 02, 2024@18:07 Collection sample: BLD CULTURE BOTTLES Collection date: Sep 02, 2024 18:00 Site/Specimen: BLOOD Provider: FRANCK TURNER Comment on specimen: L HAND Test(s) ordered: CULTURE, BLOOD................ completed: Sep 08, 2024 * BACTERIOLOGY FINAL REPORT => Sep 08, 2024 08:25 TECH CODE: [id number] Bacteriology Remark(s): Blood culture status=NO GROWTH (unless notified otherwise) 09/03/2024 AEROBIC: NO GROWTH ANAEROBIC: NO GROWTH =--=--=--=--=--=--=--=--=--=-- =--=--=--=--=--=--=--=--=--=-- =--=--=--=--=--=-- Performing Laboratory: Bacteriology Report Performed By: [facility] [CLIA# [id number]] [address] [place], [place] [address] MAGDY CALABRESE [facility] Aug 29, 2024 10:18 PM LR MICROBIOLOGY RE PORT: Reporting Lab: [facility] [IA# [id number]] [address] [place], [place] [address] Accession [UID]: [id number] [[id number]] Received: Aug 29, 2024@22:18 Collection sample: URINE, CLEAN CATCH Collection date: Aug 29, 2024 22:18 Site/Specimen: URINE Provider: FELISA COLE Test(s) ordered: CULTURE, URINE................ completed: Aug 31, 2024 09:51 * BACTERIOLOGY FINAL REPORT => Aug 31, 2024 09:51 TECH CODE: [id number] Bacteriology Remark(s): NO GROWTH 08/30/2024 <10,000 CFU/ML. 08/31/2024 =--=--=--=--=--=--=--=--=--=-- =--=--=--=--=--=--=--=--=--=-- =--=--=--=--=--=-- Performing Laboratory: Bacteriology Report Performed By: [facility] [CLIA# [id number]] [address] [place] [address] MAGDY CALABRESE-MAL[facility]
--- OUTSIDE RECORDS SUMMARY | 2024-09-03 11:00 | XMS_ITS | Encounter Summary ---
Author Name [facility] Organization [facility] [place] Address [address] [place] [address] Care Team Providers Care Transportation Dispatcher Name Role Phone YULISSA HENDERSON Primary Care [...] PLAN F Mar 24, 2014 PLAN F [id number] [phone] LUIS MANUEL PERDOMO PATIENT BS [place] [employer] PREFERRED PROVIDER ORGANIZAT ION (PPO) [facility] Sep 21, 2012 [id number] [phone] LUIS MANUEL PERDOMO PATIENT [employer] ([id number]) PRESCRIPT ION [id number] Sep 21, 2012 [id number] LUIS MANUEL PERDOMO PATIENT MEDICARE (WNR) MEDICARE (M) PART B Sep 21, 2012 PART B [id number] NOEMI PERDOMO PATIENT MEDICARE (WNR) MEDICARE (M) PART A Jan 22, 2011 PART A [id number] NOEMI PERDOMO PATIENT MEDICARE PART D (WNR) MEDICARE (M) PART D Mar 24, 2014 PART D [id number] LUIS MANUEL PERDOMO PATIENT Selected Encounter This section includes the information on record at [place] for the Encounter. Date/Time Encounter Type Encounter Description Reason Pro vider Source Sep 03, 2024 03:00 PM Inpatient Visit CARDIOLOGY IHE Encounter Template Text not used by [place] Plan of Treatment: Future Appointments (+ 6 months) and Future Tests (+/- 45 days) The Plan of Treatment section includes future care activities for the patient from all [place] [facility]. This section includes future [...] 08:00 AM AMBULATORY - NONE [place] [facility] Sep 30, 2024 01:30 PM AMBULATORY - SURGERY [place] [facility] Active, Pending, and Scheduled Orders This section includes a listing of several types of active, pending, and scheduled orders, including clinic medications orders, diagnostic test orders, procedure orders and consult orders; where the start date of the order is 45 days before the date of the Encounter or 45 days after the date of theEncounter. The data comes from all [facility] facilities. Test Date/Time Test Type Test Details Facility Name Sep 13, 2024 01:33 PM Consult Order [facility] Cons Candy Spreader Helper's Choice [facility] Lab Results: +/- 30 days of the encounter This section includes the Chemistry and Hematology Lab Results on record with [place] for the patient. Radiology Reports and Pathology Reports are provided separately, in subsequent sections. Lab Results This section contains the Chemistry/Hematology Results that were resulted 30 days before or 30 daysafter the date of the Encounter. Date/Time Source Result Type Result - Unit Interpretation Reference Range Specimen Type Comment Sep 09, 2024 12:16 PM [facility] GLUCOSE-HAND MONITOR CAPILLARY Specimen Type: CAPILLARY Comment: Test performed by: [id number] Meter #: [id number] Ordering Provider: FRANCK TURNER Report Released Date/Time: Sep 09, 2024 12:33 PM Reporting Lab: [address] [address] Performing Lab: [address] [address] GLUCOSE-HAND MONITOR 116 mg/dL H Sep 09, 2024 06:07 AM [facility] GLUCOSE-HAND MONITOR CAPILLARY Specime n Type: CAPILLARY Comment: Test performed by: [id number] Meter #: [id number] Ordering Provider: FRANCK TURNER Report Released Date/Time: Sep 09, 2024 08:17 AM Reporting Lab: [address] [address] Performing Lab: [address] [address] GLUCOSE-HAND MONITOR 112 mg/dL H Sep 08, 2024 09:13 PM [facility] GLUCOSE-HAND MONITOR CAPILLARY Specime n Type: CAPILLARY Comment: Test performed by: [id number] Meter #: [id number] Ordering Provider: FRANCK TURNER Report Released Date/Time: Sep 08, 2024 09:31 PM Reporting Lab: [address] [address] Performing Lab: [address] [address] GLUCOSE-HAND MONITOR 107 mg/dL H Sep 08, 2024 03:49 PM [facility] GLUCOSE-HAND MONITOR CAPILLARY Specime n Type: CAPILLARY Comment: AAMIR RN notified Test performed by: [id number] Meter #: [id number] Ordering Provider: FRANCK TURNER Report Released Date/Time: Sep 08, 2024 04:33 PM Reporting Lab: [address] [address] Performing Lab: [address] [address] GLUCOSE-HAND MONITOR 162 mg/dL H Sep 08, 2024 11:43 AM [facility] GLUCOSE-HAND MONITOR CAPILLARY Specime n Type: CAPILLARY Comment: AAMIR RN notified Test performed by: [id number] Meter #: [id number] Ordering Provider: FRANCK TURNER Report Released Date/Time: Sep 08, 2024 12:03 PM Reporting Lab: [address] [address] Performing Lab: [address] [address] GLUCOSE-HAND MONITOR 133 mg/dL H Sep 08, 2024 06:13 AM [facility] GLUCOSE-HAND MONITOR CAPILLARY Specime n Type: CAPILLARY Comment: Test performed by: [id number] Meter #: [id number] Ordering Provider: FRANCK TURNER Report Released Date/Time: Sep 08, 2024 06:46 AM Reporting Lab: [address] [address] Performing Lab: [address] [address] GLUCOSE-HAND MONITOR 104 mg/dL H Sep 07, 2024 07:59 PM [facility] GLUCOSE-HAND MONITOR CAPILLARY Specime n Type: CAPILLARY Comment: Test performed by: [id number] Meter #: [id number] Ordering Provider: FRANCK TURNER Report Released Date/Time: Sep 07, 2024 09:05 PM Reporting Lab: [address] [address] Performing Lab: [address] [address] GLUCOSE-HAND MONITOR 107 mg/dL H Sep 07, 2024 04:39 PM [facility] GLUCOSE-HAND MONITOR CAPILLARY Specime n Type: CAPILLARY Comment: Test performed by: [id number] Meter #: [id number] Ordering Provider: FRANCK TURNER Report Released Date/Time: Sep 07, 2024 05:09 PM Reporting Lab: [address] [address] Performing Lab: [address] [address] GLUCOSE-HAND MONITOR 105 mg/dL H Sep 07, 2024 11:41 AM [facility] GLUCOSE-HAND MONITOR CAPILLARY Specime n Type: CAPILLARY Comment: Test performed by: [id number] Meter #: [id number] Ordering Provider: FRANCK TURNER Report Released Date/Time: Sep 07, 2024 12:41 PM Reporting Lab: [address] [address] Performing Lab: [address] [address] GLUCOSE-HAND MONITOR 144 mg/dL H Sep 07, 2024 05:56 AM [facility] GLUCOSE-HAND MONITOR CAPILLARY Specime n Type: CAPILLARY Comment: Test performed by: [id number] Meter #: [id number] Ordering Provider: FRANCK TURNER Report Released Date/Time: Sep 07, 2024 06:31 AM Reporting Lab: [address] [address] Performing Lab: [address] [address] GLUCOSE-HAND MONITOR 96 mg/dL Sep 06, 2024 08:10 PM [facility] GLUCOSE-HAND MONITOR CAPILLARY Specime n Type: CAPILLARY Comment: Test performed by: [id number] Meter #: [id number] Ordering Provider: FRANCK TURNER Report Released Date/Time: Sep 06, 2024 08:52 PM Reporting Lab: [address] [address] Performing Lab: [address] [address] GLUCOSE-HAND MONITOR 124 mg/dL H Sep 06, 2024 04:27 PM [facility] GLUCOSE-HAND MONITOR CAPILLARY Specime n Type: CAPILLARY Comment: Test performed by: [id number] Meter #: [id number] Ordering Provider: FRANCK TURNER Report Released Date/Time: Sep 06, 2024 05:15 PM Reporting Lab: [address] [address] Performing Lab: [address] [address] GLUCOSE-HAND MONITOR 107 mg/dL H Sep 06, 2024 12:12 PM [facility] GLUCOSE-HAND MONITOR CAPILLARY Specime n Type: CAPILLARY Comment: Test performed by: [id number] Meter #: [id number] Ordering Provider: FRANCK TURNER Report Released Date/Time: Sep 06, 2024 12:29 PM Reporting Lab: [address] [address] Performing Lab: [address] [address] GLUCOSE-HAND MONITOR 181 mg/dL H Sep 06, 2024 06:13 AM [facility] GLUCOSE-HAND MONITOR CAPILLARY Specime n Type: CAPILLARY Comment: Test performed by: [id number] Meter #: [id number] Ordering Provider: FRANCK TURNER Report Released Date/Time: Sep 06, 2024 06:36 AM Reporting Lab: [address] [address] Performing Lab: [address] [address] GLUCOSE-HAND MONITOR 102 mg/dL H Sep 05, 2024 08:47 PM [facility] GLUCOSE-HAND MONITOR CAPILLARY Specime n Type: CAPILLARY Comment: Test performed by: [id number] Meter #: [id number] Ordering Provider: FRANCK TURNER Report Released Date/Time: Sep 06, 2024 02:13 AM Reporting Lab: [address] [address] Performing Lab: [address] [address] GLUCOSE-HAND MONITOR 103 mg/dL H Sep 05, 2024 04:40 PM [facility] GLUCOSE-HAND MONITOR CAPILLARY Specime n Type: CAPILLARY Comment: AAMIR RN notified Test performed by: [id number] Meter #: [id number] Ordering Provider: FRANCK TURNER Report Released Date/Time: Sep 05, 2024 05:11 PM Reporting Lab: [address] [address] Performing Lab: [address] [address] GLUCOSE-HAND MONITOR 113 mg/dL H Sep 05, 2024 12:06 PM [facility] GLUCOSE-HAND MONITOR CAPILLARY Specime n Type: CAPILLARY Comment: Test performed by: [id number] Meter #: [id number] Ordering Provider: FRANCK TURNER Report Released Date/Time: Sep 05, 2024 12:23 PM Reporting Lab: [place] [phone] Performing Lab: [address] [address] GLUCOSE-HAND MONITOR 115 mg/dL H Sep 05, 2024 06:26 AM [facility] GLUCOSE-HAND MONITOR CAPILLARY Specime n Type: CAPILLARY Comment: AAMIR Correction Dose Test performed by: [id number] Meter #: [id number] Ordering Provider: FRANCK TURNER Report Released Date/Time: Sep 05, 2024 06:43 AM Reporting Lab: [address] [address] Performing Lab: [address] [address] GLUCOSE-HAND MONITOR 111 mg/dL H Sep 04, 2024 08:59 PM [facility] GLUCOSE-HAND MONITOR CAPILLARY Specime n Type: CAPILLARY Comment: AAMIR RN notified Test performed by: [id number] Meter #: [id number] Ordering Provider: FRANCK TURNER Report Released Date/Time: Sep 04, 2024 09:36 PM Reporting Lab: [address] [address] Performing Lab: [address] [address] GLUCOSE-HAND MONITOR 123 mg/dL H Sep 04, 2024 04:41 PM [facility] GLUCOSE-HAND MONITOR CAPILLARY Specime n Type: CAPILLARY Comment: AAMIR RN notified Test performed by: [id number] Meter #: [id number] Ordering Provider: FRANCK TURNER Report Released Date/Time: Sep 04, 2024 05:03 PM Reporting Lab: [address] [address] Performing Lab: [address] [address] GLUCOSE-HAND MONITOR 118 mg/dL H Sep 04, 2024 12:36 PM [facility] GLUCOSE-HAND MONITOR CAPILLARY Specime n Type: CAPILLARY Comment: AAMIR RN notified Test performed by: [id number] Meter #: [id number] Ordering Provider: FRANCK TURNER Report Released Date/Time: Sep 04, 2024 12:53 PM Reporting Lab: [address] [address] Performing Lab: [place] [phone] GLUCOSE-HAND MONITOR 129 mg/dL H 71-99 Sep 04, 2024 12:03 PM [facility] RESPIRATORY VIRUS PANEL (BIOFIRE) NASOPHARYN X Specimen Type: NASOPHARYNX Comment: ~For Test: RESPIRATORY VIRUS PANEL (BIOFIRE) ~ORDER READ BACK TO: FRANCK TURNER 09/04/24@11:30 Ordering Provider: FRANCK TURNER Report Released Date/Time: Sep 04, 2024 11:33 AM Reporting Lab: [address] [address] Performing Lab: [place] [phone] ADENOVIRUS (BIOFIRE) Not Detected -Not D etected [...] -Not Detected Sep 04, 2024 06:55 AM [facility] MAGNESIUM PLASMA Specimen Type: PLASM A [...] Sep 03, 2024 11:10 AM Reporting Lab: [facility] [address] [facility] [address] Performing Lab: [facility] [address] [facility] [address] MAGNESIUM 1.8 mg/dL 1.6-2.6 Sep 04, 2024 06:55 AM [facility] PANEL 1 PLASMA Specimen Type: PLASM [...] Sep 03, 2024 11:10 AM Reporting Lab: [place] [address] [address] Performing Lab: [address] [address] CREATININE 0.75 mg/dL 0.72-1.25 UREA NITROGEN 13 mg/dL 9-25 GLUCOSE 105 mg/dL H 74-100 SODIUM 128 mmol/L L 136-145 POTASSIUM 3.9 mmol/L 3.5-5.1 CHLORIDE 99 mmol/L 98-107 CO2 21 mmol/L L 22-29 CALCIUM 8.0 mg/dL L 8.4-10.2 ANION GAP 8 meq/L 3-19 eGFR (CKD-EPI) >90 Sep 04, 2024 06:02 AM [facility] GLUCOSE-HAND MONITOR CAPILLARY Specime n Type: CAPILLARY Comment: Test performed by: [id number] Meter #: [id number] Ordering Provider: FRANCK TURNER Report Released Date/Time: Sep 04, 2024 06:28 AM Reporting Lab: [address] [address] Performing Lab: [address] [address] GLUCOSE-HAND MONITOR 114 mg/dL H 71-99 Sep 03, 2024 05:19 PM [facility] GLUCOSE-HAND MONITOR CAPILLARY Specime n Type: CAPILLARY Comment: Test performed by: [id number] Meter #: [id number] Ordering Provider: FRANCK TURNER Report Released Date/Time: Sep 03, 2024 05:37 PM Reporting Lab: [address] [address] Performing Lab: [address] [address] GLUCOSE-HAND MONITOR 124 mg/dL H 71-99 Sep 03, 2024 04:41 PM [facility] GLUCOSE-HAND MONITOR CAPILLARY Specime n Type: CAPILLARY Comment: Test performed by: [id number] Meter #: [id number] Ordering Provider: FRANCK TURNER Report Released Date/Time: Sep 03, 2024 06:09 PM Reporting Lab: [address] [address] Performing Lab: [address] [address] GLUCOSE-HAND MONITOR 112 mg/dL H 71-99 Sep 03, 2024 01:35 PM [facility] CREATININE URINE Specimen Type: URINE Comment: ~Altered mental status with no identifiable cause Ordering Provider: FRANCK TURNER Report Released Date/Time: Sep 02, 2024 04:44 PM Reporting Lab: [facility] [address] [facility] [address] Performing Lab: [address] [address] CREATININE 150.9 mg/dL Sep 03, 2024 01:35 PM [facility] URINE LYTES URINE Specimen Type : URINE Comment: ~Altered mental status with no identifiable cause Ordering Provider: FRANCK TURNER Report Released Date/Time: Sep 02, 2024 04:44 PM Reporting Lab: [address] [address] Performing Lab: [address] [address] SODIUM 130 mmol/L POTASSIUM 47.6 mmol/L CHLORIDE 137 mmol/L Sep 03, 2024 01:35 PM [facility] UREA NITROGEN URINE Specimen Type : URINE Comment: ~Altered mental status with no identifiable cause Ordering Provider: FRANCK TURNER Report Released Date/Time: Sep 02, 2024 04:44 PM Reporting Lab: [address] [address] Performing Lab: [address] [address] UREA NITROGEN 320 mg/dL Sep 03, 2024 01:35 PM [facility] OSMOLALITY URINE Specimen Type: URINE Comment: ~Altered mental status with no identifiable cause Ordering Provider: FRANCK TURNER Report Released Date/Time: Sep 02, 2024 04:44 PM Reporting Lab: [address] [address] Performing Lab: [address] [address] OSMOLALITY 522 mosm/kg 38-1400 Sep 03, 2024 01:35 PM [facility] URINALYSIS WITH REFLEX TO CULTURE URINE Specimen Type: URINE Comment: ~Altered mental status with no identifiable cause Ordering Provider: FRANCK TURNER Report Released Date/Time: Sep 02, 2024 04:44 PM Reporting Lab: [address] [address] Performing Lab: [address] [address] URINE COLOR Yellow Colorless-Yellow APPEARANCE CLOUDY H [...] H 0-28 Sep 03, 2024 11:58 AM [facility] GLUCOSE-HAND MONITOR CAPILLARY Specime n Type: CAPILLARY Comment: AAMIR RN notified Test performed by: [id number] Meter #: [id number] Ordering Provider: FRANCK TURNER Report Released Date/Time: Sep 03, 2024 12:15 PM Reporting Lab: [address] [address] Performing Lab: [address] [address] GLUCOSE-HAND MONITOR 135 mg/dL H Sep 03, 2024 07:09 AM [facility] GLUCOSE-HAND MONITOR CAPILLARY Specime n Type: CAPILLARY Comment: Test performed by: [id number] Meter #: [id number] Ordering Provider: FRANCK TURNER Report Released Date/Time: Sep 03, 2024 07:26 AM Reporting Lab: [address] [address] Performing Lab: [address] [address] GLUCOSE-HAND MONITOR 120 mg/dL H Sep 03, 2024 07:05 AM [facility] CBC/PLT BLOOD Specimen Type: BLOOD No comment entered. Ordering Provider: FRANCK TURNER Report Released Date/Time: Sep 02, 2024 04:29 PM Reporting Lab: [facility] [address] [facility] [address] Performing Lab: [facility] [address] [facility] [address] WBC 6.9 10*3/uL 5.0-10.0 RBC 3.48 10*6/uL L 4.6-6.2 HGB 9.5 g/dL L 14.0-18.0 HCT 29.1 L 42.0-52.0 MCV 83.6 fL 80.0-94.0 MCH 27.3 pg 27.0-31.0 MCHC 32.6 g/dL 32.0-36.0 PLT 258 10*3/uL 150-450 MPV 10.3 fL 9.0-13.1 RDW 14.8 11.0-16.0 NRBC 0.0 0.0-0.0 Sep 03, 2024 07:05 AM [facility] MAGNESIUM PLASMA Specimen Type: PLASM A [...] Sep 02, 2024 04:29 PM Reporting Lab: [address] [address] Performing Lab: [address] [address] MAGNESIUM 1.7 mg/dL 1.6-2.6 Sep 03, 2024 07:05 AM [facility] PANEL 1 PLASMA Specimen Type: PLASM [...] Sep 02, 2024 04:29 PM Reporting Lab: [address] [address] Performing Lab: [address] [address] CREATININE 0.82 mg/dL 0.72-1.25 UREA NITROGEN 12 mg/dL 9-25 GLUCOSE 109 mg/dL H 74-100 SODIUM 129 mmol/L L 136-145 POTASSIUM 4.2 mmol/L 3.5-5.1 CHLORIDE 99 mmol/L 98-107 CO2 21 mmol/L L 22-29 CALCIUM 8.1 mg/dL L 8.4-10.2 ANION GAP 9 meq/L 3-19 eGFR (CKD-EPI) 90 Sep 03, 2024 07:05 AM [facility] GLYCOHEMOGLOBIN BLOOD Specimen Type: BLOOD Comment: Prediabetes: 5.7%-6.4% Diabetes: >= 6.5% [facility] guidelines for A1c [...] 8.73 and 9.27. Ref: https://ngsp.org/CAPdata.asp. The in-house Chrysallis-Shopflick D-100 analyzer has a historical CV <= 2%. Contact the laboratory for further performance characteristics of this assay. Ordering Provider: FRANCK TURNER Report Released Date/Time: Sep 02, 2024 04:29 PM Reporting Lab: [address] [address] Performing Lab: [address] [address] GLYCOHEMOGLOBIN 5.6 4.4-5.6 Sep 03, 2024 07:05 AM [facility] OSMOLALITY SERUM Specimen Type: SERUM No comment entered. Ordering Provider: FRANCK TURNER Report Released Date/Time: Sep 02, 2024 04:44 PM Reporting Lab: [address] [address] Performing Lab: [address] [address] OSMOLALITY 271 mosm/kg L 280-300 Sep 02, 2024 08:15 PM [facility] GLUCOSE-HAND MONITOR CAPILLARY Specime n Type: CAPILLARY Comment: AAMIR RN notified Test performed by: [id number] Meter #: [id number] Ordering Provider: FRANCK TURNER Report Released Date/Time: Sep 02, 2024 08:57 PM Reporting Lab: [address] [address] Performing Lab: [address] [address] GLUCOSE-HAND MONITOR 126 mg/dL H 71-99 Sep 02, 2024 06:10 PM [facility] MRSA SURVL NARES DNA NARES Specime [...] Sep 02, 2024 05:12 PM Reporting Lab: [address] [address] Performing Lab: [address] [address] MRSA SURVL NARES DNA Negative Negative Sep 02, 2024 05:36 PM [facility] GLUCOSE-HAND MONITOR CAPILLARY Specime n Type: CAPILLARY Comment: Test performed by: [id number] Meter #: [id number] Ordering Provider: FRANCK TURNER Report Released Date/Time: Sep 02, 2024 05:53 PM Reporting Lab: [address] [address] Performing Lab: [address] [address] GLUCOSE-HAND MONITOR 127 mg/dL H 71-99 Aug 29, 2024 10:04 PM [facility] URINALYSIS WITH REFLEX TO CULTURE URINE Specimen Type: URINE Comment: ~For Test: URINALYSIS WITH REFLEX TO CULTURE ~REORDER Ordering Provider: FELISA COLE Report Released Date/Time: Aug 29, 2024 09:36 PM Reporting Lab: [address] [address] Performing Lab: [address] [address] URINE COLOR Yellow Colorless-Yellow APPEARANCE Clear Clear [...] /[LPF] 0-28 Aug 29, 2024 08:32 PM [facility] HIGH SENSITIVITY TROPONIN I PLASMA Specimen [...] resource can be reached in [facility] in the Tools menu, under [...] Aug 29, 2024 07:55 PM Reporting Lab: [address] [address] Performing Lab: [address] [address] HIGH SENSITIVITY TROPONIN I 7 4-35 Aug 29, 2024 08:32 PM [facility] CBC/PLT BLOOD Specimen Type: BLOOD No comment entered. Ordering Provider: FELISA COLE Report Released Date/Time: Aug 29, 2024 07:55 PM Reporting Lab: [address] [address] Performing Lab: [address] [address] WBC 11.2 10*3/uL H 5.0-10.0 RBC 3.97 10*6/uL L 4.6-6.2 HGB 10.9 g/dL L 14.0-18.0 HCT 33.5 L 42.0-52.0 MCV 84.4 fL 80.0-94.0 MCH 27.5 pg 27.0-31.0 MCHC 32.5 g/dL 32.0-36.0 PLT 230 10*3/uL 150-450 MPV 10.2 fL 9.0-13.1 RDW 14.6 11.0-16.0 NRBC 0.0 0.0-0.0 Aug 29, 2024 08:32 PM [facility] PANEL 5 PLASMA Specimen Type: [...] resource can be reached in [facility] in the Tools menu, under [...] Aug 29, 2024 07:55 PM Reporting Lab: [address] [address] Performing Lab: [address] [address] CREATININE 0.85 mg/dL 0.72-1.25 UREA NITROGEN 15 [...] 18 /min 93 % 0 [place] [facility] Sep 03, 2024 04:38 PM 98.5 F 81 /min 129/76 mm[Hg] 15 /min 94 % 0 [facility] Sep 03, 2024 09:07 AM 98.0 F 94 /min 121/71 mm[Hg] 15 /min 90 % 0 [facility] Sep 03, 2024 06:13 AM 217.5 lb 32 [place] [facility] Sep 03, 2024 04:41 AM 98.9 F 92 /min 124/71 mm[Hg] 20 /min 91 % 0 [facility] Advance Directives: All historical and current [...] 08, 2024 ADVANCE DIRECTIVE DISCUSSION [facility] Radiology Reports: +/- 30 days of [...] the Encounter. The data comes from all [place] treatment facilities. Date/Time Radiology Report Provider Source Sep 06, 2024 01:40 PM MRI BRAIN W & W/O: LUIS MANUEL PERDOMO [id number] -1945 M Exm Date: SEP 06, 2024@13:40 Req Phys: FRANCK TURNER Pat Loc: 5-MED/TEL/09-06-2024@19:09 Img Loc: [facility] Service: [place] [address] (Case [id number] COMPLETE) MRI BRAIN W & W/O (MRI Detailed) CPT:06630 Contrast Media : Gadolinium Reason for Study: SEE CLINICAL HISTORY Pharmaceutical: GADOTERIDOL 279.3MG/ML 20ML INJ, 19ml Clinical History: MRI Screening (Required): IMPLANTED DEVICE DOCUMENTATION IMPLANTED DEVICE DOCUMENTATION NOT FOUND Does the have any Cardiac Implants? None Does the [place] have any implanted stimulators? None Does the [...] 06, 2024 Date Verified: SEP 06, 2024 Client Application Support Engineer E-Sig: Report: MRI brain without and [...] Staff: ARCENIO LEYVA, Staff Radiologist Verified by jumpbasting collar baster for ARCENIO LEYVA /ARCENIO AVILA [facility] Sep 06, 2024 01:40 PM MRI C SPINE W & W/ O CONTRAST(FURTHER SEQUENCES): LUIS MANUEL PERDOMO [id number] -1945 M Exm Date: SEP 06, 2024@13:40 Req Phys: AZARSUMMERFRANCK GRIMES Pat Loc: 5-MED/TEL/09-07-2024@06:42 Img Loc: [facility] Service: [place] [address] (Case [id number] COMPLETE) MRI C SPINE W & W/O CONTRAST(FURT(MRI Detailed) CPT:60721 Contrast Media : Gadolinium Reason for Study: SEE CLINICAL HISTORY Pharmaceutical: GADOTERIDOL 279.3MG/ML 20ML INJ, 19ml Clinical History: STATUS OF PLAIN FILMS:Not performed (Provide justification for MR W/O prior plain films below.) MRI for MS MRI Screening (Required): IMPLANTED DEVICE DOCUMENTATION IMPLANTED DEVICE DOCUMENTATION NOT FOUND Does the have any Cardiac Implants? None Does the [place] have any implanted stimulators? None Does the [place] have cochlear implants? No Does the [place] have Cerebral aneurysm clip(s)? I don't know [...] 07, 2024 Date Verified: SEP 07, 2024 Client Application Support Engineer E-Sig: Report: EXAMINATION: MRI OF THE [...] Interpreting Staff: HUANG TAI, Radiologist Verified by jumpbasting collar baster for HUANG TAI /[facility] Sep 03, 2024 10:45 AM CHEST SINGLE(1) EW: LUIS MANUEL PERDOMO [id number] -1945 M Ex Date: SEP 03, 2024@10:45 Req Phys: FRANCK TURNER [facility] Loc: 5-MED/TEL/09-03-2024@10:56 Img Loc: [facility] RADIOLOGY Service: [facility] SERV[facility] [place] [id number] (Case [id number] COMPLETE)CHEST SINGLE(1) VIEW (RAD Detailed) CPT:94366 Proc Modifiers : PORTABLE EXAM Reason for Study: Eval volume status Clinical History: Report Status: Verified Date Reported: SEP 03, 2024 Date Verified: SEP 03, 2024 Client Application Support Engineer E-Sig: Report: EXAMINATION: SINGLE VIEW CHEST [...] Interpreting Staff: HUANG TAI, Radiologist Verified by jumpbasting collar baster for HUANG TAI /[facility]ANG [facility] Aug 29, 2024 08:[address] HEAD W/O CONT: LUIS MANUEL PERDOMO [id number] -1945 M Exm Date: AUG 29, 2024@20:28 Req Phys: FELISA COLE Loc: ED/4P-12A (Req'g Loc) Img Loc: CT SCAN Service: [place] [address] (Case [id number] COMPLETE) CT HEAD W/O CONT (CT Detailed) CPT:04497 Reason for Study: SEE CLINICAL HISTORY Clinical History: REASON FOR SEND OUT: ATTENDING PHYSICIAN NAME: New transient neurological s/s - suspected TIA HISTORY/REASON FOR EXAM: confusion Report Status: Verified Date Reported: AUG 29, 2024 Date Verified: AUG 29, 2024 Client Application Support Engineer E-Sig: Report: HISTORY confusion COMPARISON No [...] Staff: ABDIRAHMAN CROW, Staff Physician Verified by jumpbasting collar baster for ABDIRAHMAN CROW /GUERITA CROW,ABDIRAHMAN [facility] Pathology Reports: +/- 30 days of [...] the Encounter. The data comes from all [place] treatment facilities. Date/Time Pathology Report Provider Source Sep 03, 2024 01:35 PM LR MICROBIOLOGY RE PORT: Reporting Lab: [facility] [CLIA# [id number]] [address] [place] [id number] Accession [UID]: [id number] [[id number]] Received: Sep 03, 2024@14:02 Collection sample: URINE, [...] Performed By: [facility] [CLIA# [id number]] [address] [place], [place] [id number] MAGDY CALABRESE [facility] Sep 02, 2024 06:00 PM LR MICROBIOLOGY RE PORT: Reporting Lab: [facility] [IA# [id number]] [address] [place], [place] [id number] Accession [UID]: [id number] [[id number]] Received: Sep 02, 2024@18:07 Collection sample: BLD CULTURE BOTTLES Collection date: Sep 02, 2024 18:00 Site/Specimen: BLOOD Provider: FRANCK TURNER Comment on specimen: L HAND Test(s) ordered: CULTURE, BLOOD................ completed: Sep 08, 2024 * BACTERIOLOGY FINAL REPORT => Sep 08, 2024 08:25 TECH CODE: [id number] Bacteriology Remark(s): Blood culture status=NO GROWTH (unless notified otherwise) 09/03/2024 AEROBIC: NO GROWTH ANAEROBIC: NO GROWTH =--=--=--=--=--=--=--=--=--=-- =--=--=--=--=--=--=--=--=--=-- =--=--=--=--=--=-- Performing Laboratory: Bacteriology Report Performed By: [facility] [IA# [id number]] [address] [place], [place] [id number] MAGDY CALABRESE [facility] Aug 29, 2024 10:18 PM LR MICROBIOLOGY RE PORT: Reporting Lab: [facility] [IA# [id number]] [address] [place], [place] [id number] Accession [UID]: [id number] [[id number]] Received: Aug 29, 2024@22:18 Collection sample: URINE, CLEAN CATCH Collection date: Aug 29, 2024 22:18 Site/Specimen: URINE Provider: FELISA COLE Test(s) ordered: CULTURE, URINE................ completed: Aug 31, 2024 09:51 * BACTERIOLOGY FINAL REPORT => Aug 31, 2024 09:51 TECH CODE: [id number] Bacteriology Remark(s): NO GROWTH 08/30/2024 <10,000 CFU/ML. 08/31/2024 =--=--=--=--=--=--=--=--=--=-- =--=--=--=--=--=--=--=--=--=-- =--=--=--=--=--=-- Performing Laboratory: Bacteriology Report Performed By: [facility] [CLIA# [id number]] [address] [place] [address] MAGDY CALABRESE [facility] Encounter Notes: All associated encounter notes This section contains the clinical notes associated to the Encounter. Date/Time Encounter Note(s) Provider Source Sep 03, 2024 05:33 PM PROCEDURE REPORT: LOCAL TITLE: CP CARD/ECHO STANDARD TITLE: PROCEDURE REPORT DATE OF NOTE: SEP 03, 2024@17:33:24 ENTRY DATE: SEP 03, 2024@17:33:24 AUTHOR: CLINICAL,DEVICE PRO EXP COSIGNER: URGENCY: STATUS: COMPLETED PROCEDURE SUMMARY CODE: Machine Resulted DATE/TIME PERFORMED: SEP 03, 2024@17:33:0 DOCUMENT IN VISTA IMAGING SEE FULL REPORT IN VISTA IMAGING SIGNATURE NOT REQUIRED SEE SIGNATURE IN VISTA IMAGING (ZXCELERA TTE) AUTO-INSTRUMENT DIAGNOSIS Procedure: Adult Adult Release Status: Released Off-Line Verified Date Verified: Sep 03, 2024@17:33:04 CP Order Number: [id number] [id number] [phone] Adult Echocardiogram Report Name: LUIS MANUEL PERDOMO Study Date: 09/03/2024 02:27 PM : 1945 Gender: Male Age: 79 yrs Referring Physician: FRANCK TURNER Reason For Study: Suspect HF ROBERTDAVID Performed By: Lilly Segal Height: 69 in Weight: 218 lb BSA: 2.1 m2 BP: 121/71 mmHg Interpretation Summary A two-dimensional transthoracic echocardiogram was performed. The study was technically difficult. lIMITED VIEWS. Left Ventricle The left ventricle is grossly normal size. The left ventricular apex is not well visualized. The visually estimated LVEF is '50-60%'. No regional wall motion abnormalities noted. Right Ventricle The right ventricle is grossly normal size. The right ventricular systolic function is normal. The estimated RV systolic pressure is uninterpretable due to inadequate TR. Atria The left atrial volume index (ml/m2) is 'mildly dilated (35-41ml/m2)'. The right atrial size is normal. Based upon the IVC size and respiratory variation, the estimated RAP is '3mmHg (<=21mm; >50% collapse)'. The interatrial septum is intact with no evidence for an atrial septal defect. Mitral Valve There is moderate mitral annular calcification. There is no significant mitral stenosis. The mitral valve pressure half-time is 5 msec. There is mild mitral regurgitation. Tricuspid Valve The tricuspid valve is not well visualized, but is grossly normal. There is no tricuspid stenosis. There is trace tricuspid regurgitation. Aortic Valve The aortic valve is trileaflet. Thickened aortic valve leaflets. No hemodynamically significant valvular aortic stenosis. No aortic regurgitation. Pulmonic Valve The pulmonic valve is not well seen, but is grossly normal. There is no pulmonic valvular stenosis. Great Vessels The aortic root is normal size. The pulmonary artery is not well visualized. Pericardium/Pleural There is no pericardial effusion. MMode/2D Measurements \T\ Calculations Ao root diam: 3.8 cm LVOT diam: 2.2 cm EDV(MOD-sp4): 92.9 ml ESV(MOD-sp4): 47.5 ml LVOT area: 3.8 cm2 EF(MOD-sp4): 48.9 % EF(sp4-el): 51.0 % EDV(MOD-sp2): 77.1 ml SV(MOD-sp4): 45.4 ml ESV(MOD-sp2): 29.4 ml EDV(MOD-bp): 84.8 ml EF(MOD-sp2): 61.9 % ESV(MOD-bp): 39.3 ml EF(sp2-el): 64.3 % EF(MOD-bp): 53.7 % SV(sp4-el): 49.2 ml LAV(MOD-sp2): 66.9 ml KATHRYN: 32.2 ml/m2 LAV(MOD-sp4): 71.2 ml LAV(MOD-bp): 74.5 ml KATHRYN(MOD-BP): 34.8 ml/m2 Time Measurements MV dec time: 0.38 sec Doppler Measurements \T\ Calculations MV E max twin: MV V2 max: 169.0 cm/sec Ao V2 max: 176.0 cm/sec 136.0 cm/sec MV max P.4 mmHg Ao max P.4 mmHg MV A max twin: MV V2 mean: 98.2 cm/sec Ao V2 mean: 124.5 cm/sec 150.0 cm/sec MV mean P.5 mmHg Ao mean P.5 mmHg MV E/A: 0.91 MV V2 VTI: 39.2 cm Ao V2 VTI: 38.9 cm MVA(VTI): 2.3 cm2 MAGDALENA(I,D): 2.3 cm2 MAGDALENA(V,D): 2.3 cm2 LV V1 max P.5 mmHg SV(LVOT): 88.2 ml MAGDALENA(VTI)/BSA: 1.1 LV V1 mean P.0 mmHg LV V1 max: 106.0 cm/sec LV V1 mean: 68.6 cm/sec LV V1 VTI: 23.2 cm RV S Vel_phl: 15.2 cm/secLat Peak E' Twin: Med Peak E' Twin: 11.3 cm/sec 5.0 cm/sec MV E/e' (Avg): 19.8 MV Lat E/e': 12.0 MV Med E/e': 27.5 Reading Physician: Rodolfo Bonilla MD, PhD 09/03/2024 05:33 PM Referring Physician: FRANCK TURNER Performed By: Lilly Segal Administrative Closure: 09/03/2024 by: DEVICE PROXY SERVICE CLINICAL CLINICAL,DEVICE PROXY SERVICE CLINICAL,DEVICE PROXY SERVICE [facility]
--- OUTSIDE RECORDS SUMMARY | 2024-09-03 13:08 | XMS_ITS ---
[place] DAILY HOSPITALIZATION DATA [facility] Encounter Summary Created on: September 22, 2024 LUIS MANUEL PERDOMO : 1945 Sex: Male Author Name [facility] Organization 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 Name Role Phone YULISSA HENDERSON Primary [...] PLAN F Mar 24, 2014 PLAN F [phone] LUIS MANUEL PERDOMO PATIENT [facility] [place] BLUECARD PREFERRED PROVIDER ORGANIZAT ION (PPO) [facility] Sep 21, 2012 [id number] LUIS MANUEL PERDOMO PATIENT [facility] ([id number]) PRESCRIPT ION WL3A Sep 21, 2012 [id number] [phone] LUIS MANUEL PERDOMO PATIENT MEDICARE (WNR) MEDICARE (M) PART B Sep 21, 2012 PART B [id number] [id number] NOEMI PERDOMO PATIENT MEDICARE (WNR) MEDICARE (M) PART A Jan 22, 2011 PART A [id number] [phone] LEANNE, NOEMI PATIENT MEDICARE PART D (WNR) MEDICARE (M) PART D Mar 24, 2014 PART D [id number] LUIS MANUEL PERDOMO PATIENT Selected Encounter This section includes the information on record at NE for the Encounter. Date/Time Encounter Type Encounter Description Reason Pro vider Source Sep 03, 2024 05:08 PM Inpatient Visit DAILY HOSPITALIZATION DATA [facility] Encounter Template Text not used by NE Plan of Treatment: Future Appointments (+ 6 months) and Future Tests (+/- 45 days) The Plan of Treatment section includes future care activities for the patient from all [facility]. This section includes [...] 13, 2024 08:00 [facility] Sep 30, 2024 01:30 PM [facility] Active, Pending, and Scheduled Orders This section includes a listing of several types of active, pending, and scheduled orders, including clinic medications orders, diagnostic test orders, procedure orders and consult orders; where the start date of the order is 45 days before the date of the Encounter or 45 days after the date of theEncounter. The data comes from all [facility] facilities. Test Date/Time Test Type Test Details Facility Name Sep 13, 2024 01:33 PM Consult Order [facility] SKILL[facility] HOME CARE Cons Recreation Program Specialist's Choice [facility] Lab Results: +/- 30 days [...] Type Comment Sep 09, 2024 12:16 PM [facility] GLUCOSE-HAND MONITOR CAPILLARY Specimen Type: CAPILLARY Comment: Test performed by: [id number] Meter #: [id number] Ordering Provider: FRANCK TURNER Report Released Date/Time: Sep 09, 2024 12:33 PM Reporting Lab: [address] [address] Performing Lab: [address] [address] GLUCOSE-HAND MONITOR 116 mg/dL H Sep 09, 2024 06:07 AM [facility] GLUCOSE-HAND MONITOR CAPILLARY Specime n Type: CAPILLARY Comment: Test performed by: [id number] Meter #: [id number] Ordering Provider: FRANCK TURNER Report Released Date/Time: Sep 09, 2024 08:17 AM Reporting Lab: [address] [address] Performing Lab: [address] [address] GLUCOSE-HAND MONITOR 112 mg/dL H Sep 08, 2024 09:13 PM [facility] GLUCOSE-HAND MONITOR CAPILLARY Specime n Type: CAPILLARY Comment: Test performed by: [id number] Meter #: [id number] Ordering Provider: FRANCK TURNER Report Released Date/Time: Sep 08, 2024 09:31 PM Reporting Lab: [address] [address] Performing Lab: [address] [address] GLUCOSE-HAND MONITOR 107 mg/dL H Sep 08, 2024 03:49 PM [facility] GLUCOSE-HAND MONITOR CAPILLARY Specime n Type: CAPILLARY Comment: AAMIR RN notified Test performed by: [id number] Meter #: [id number] Ordering Provider: FRANCK TURNER Report Released Date/Time: Sep 08, 2024 04:33 PM Reporting Lab: [address] [address] Performing Lab: [address] [address] GLUCOSE-HAND MONITOR 162 mg/dL H Sep 08, 2024 11:43 AM [facility] GLUCOSE-HAND MONITOR CAPILLARY Specime n Type: CAPILLARY Comment: AAMIR RN notified Test performed by: [id number] Meter #: [id number] Ordering Provider: FRANCK TURNER Report Released Date/Time: Sep 08, 2024 12:03 PM Reporting Lab: [address] [address] Performing Lab: [address] [address] GLUCOSE-HAND MONITOR 133 mg/dL H Sep 08, 2024 06:13 AM [facility] GLUCOSE-HAND MONITOR CAPILLARY Specime n Type: CAPILLARY Comment: Test performed by: [id number] Meter #: [id number] Ordering Provider: FRANCK TURNER Report Released Date/Time: Sep 08, 2024 06:46 AM Reporting Lab: [address] [address] Performing Lab: [address] [address] GLUCOSE-HAND MONITOR 104 mg/dL H Sep 07, 2024 07:59 PM [facility] GLUCOSE-HAND MONITOR CAPILLARY Specime n Type: CAPILLARY Comment: Test performed by: [id number] Meter #: [id number] Ordering Provider: FRANCK TURNER Report Released Date/Time: Sep 07, 2024 09:05 PM Reporting Lab: [address] [address] Performing Lab: [address] [address] GLUCOSE-HAND MONITOR 107 mg/dL H Sep 07, 2024 04:39 PM [facility] GLUCOSE-HAND MONITOR CAPILLARY Specime n Type: CAPILLARY Comment: Test performed by: [id number] Meter #: [id number] Ordering Provider: FRANCK TURNER Report Released Date/Time: Sep 07, 2024 05:09 PM Reporting Lab: [address] [address] Performing Lab: [address] [address] GLUCOSE-HAND MONITOR 105 mg/dL H Sep 07, 2024 11:41 AM [facility] GLUCOSE-HAND MONITOR CAPILLARY Specime n Type: CAPILLARY Comment: Test performed by: [id number] Meter #: [id number] Ordering Provider: FRANCK TURNER Report Released Date/Time: Sep 07, 2024 12:41 PM Reporting Lab: [address] [address] Performing Lab: [address] [address] GLUCOSE-HAND MONITOR 144 mg/dL H Sep 07, 2024 05:56 AM [facility] GLUCOSE-HAND MONITOR CAPILLARY Specime n Type: CAPILLARY Comment: Test performed by: [id number] Meter #: [id number] Ordering Provider: FRANCK TURNER Report Released Date/Time: Sep 07, 2024 06:31 AM Reporting Lab: [address] [address] Performing Lab: [address] [address] GLUCOSE-HAND MONITOR 96 mg/dL Sep 06, 2024 08:10 PM [facility] GLUCOSE-HAND MONITOR CAPILLARY Specime n Type: CAPILLARY Comment: Test performed by: [id number] Meter #: [id number] Ordering Provider: FRANCK TURNER Report Released Date/Time: Sep 06, 2024 08:52 PM Reporting Lab: [address] [address] Performing Lab: [address] [address] GLUCOSE-HAND MONITOR 124 mg/dL H Sep 06, 2024 04:27 PM [facility] GLUCOSE-HAND MONITOR CAPILLARY Specime n Type: CAPILLARY Comment: Test performed by: [id number] Meter #: [id number] Ordering Provider: FRANCK TURNER Report Released Date/Time: Sep 06, 2024 05:15 PM Reporting Lab: [address] [address] Performing Lab: [address] [address] GLUCOSE-HAND MONITOR 107 mg/dL H Sep 06, 2024 12:12 PM [facility] GLUCOSE-HAND MONITOR CAPILLARY Specime n Type: CAPILLARY Comment: Test performed by: [id number] Meter #: [id number] Ordering Provider: FRANCK TURNER Report Released Date/Time: Sep 06, 2024 12:29 PM Reporting Lab: [address] [address] Performing Lab: [address] [address] GLUCOSE-HAND MONITOR 181 mg/dL H -Sep 06, 2024 06:13 AM [facility] GLUCOSE-HAND MONITOR CAPILLARY Specime n Type: CAPILLARY Comment: Test performed by: [id number] Meter #: [id number] Ordering Provider: FRANCK TURNER Report Released Date/Time: Sep 06, 2024 06:36 AM Reporting Lab: [address] [address] Performing Lab: [address] [address] GLUCOSE-HAND MONITOR 102 mg/dL H Sep 05, 2024 08:47 PM [facility] GLUCOSE-HAND MONITOR CAPILLARY Specime n Type: CAPILLARY Comment: Test performed by: [id number] Meter #: [id number] Ordering Provider: FRANCK TURNER Report Released Date/Time: Sep 06, 2024 02:13 AM Reporting Lab: [address] [address] Performing Lab: [address] [address] GLUCOSE-HAND MONITOR 103 mg/dL H Sep 05, 2024 04:40 PM [facility] GLUCOSE-HAND MONITOR CAPILLARY Specime n Type: CAPILLARY Comment: AAMIR RN notified Test performed by: [id number] Meter #: [id number] Ordering Provider: FRANCK TURNER Report Released Date/Time: Sep 05, 2024 05:11 PM Reporting Lab: [address] [address] Performing Lab: [address] [address] GLUCOSE-HAND MONITOR 113 mg/dL H Sep 05, 2024 12:06 PM [facility] GLUCOSE-HAND MONITOR CAPILLARY Specime n Type: CAPILLARY Comment: Test performed by: [id number] Meter #: [id number] Ordering Provider: FRANCK TURNER Report Released Date/Time: Sep 05, 2024 12:23 PM Reporting Lab: [address] [address] Performing Lab: [address] [address] GLUCOSE-HAND MONITOR 115 mg/dL H Sep 05, 2024 06:26 AM [facility] GLUCOSE-HAND MONITOR CAPILLARY Specime n Type: CAPILLARY Comment: AAMIR Correction Dose Test performed by: [id number] Meter #: [id number] Ordering Provider: FRANCK TURNER Report Released Date/Time: Sep 05, 2024 06:43 AM Reporting Lab: [address] [address] Performing Lab: [address] [address] GLUCOSE-HAND MONITOR 111 mg/dL H Sep 04, 2024 08:59 PM [facility] GLUCOSE-HAND MONITOR CAPILLARY Specime n Type: CAPILLARY Comment: AAMIR RN notified Test performed by: [id number] Meter #: [id number] Ordering Provider: FRANCK TURNER Report Released Date/Time: Sep 04, 2024 09:36 PM Reporting Lab: [address] [address] Performing Lab: [address] [address] GLUCOSE-HAND MONITOR 123 mg/dL H Sep 04, 2024 04:41 PM [facility] GLUCOSE-HAND MONITOR CAPILLARY Specime n Type: CAPILLARY Comment: AAMIR RN notified Test performed by: [id number] Meter #: [id number] Ordering Provider: FRANCK TURNER Report Released Date/Time: Sep 04, 2024 05:03 PM Reporting Lab: [address] [address] Performing Lab: [address] [address] GLUCOSE-HAND MONITOR 118 mg/dL H Sep 04, 2024 12:36 PM [facility] GLUCOSE-HAND MONITOR CAPILLARY Specime n Type: CAPILLARY Comment: AAMIR RN notified Test performed by: [id number] Meter #: [id number] Ordering Provider: FRANCK TURNER Report Released Date/Time: Sep 04, 2024 12:53 PM Reporting Lab: [address] [address] Performing Lab: [place] [address] GLUCOSE-HAND MONITOR 129 mg/dL H 71-99 Sep 04, 2024 12:03 PM [facility] RESPIRATORY VIRUS PANEL (BIOFIRE) NASOPHARYN X Specimen Type: NASOPHARYNX Comment: ~For Test: RESPIRATORY VIRUS PANEL (BIOFIRE) ~ORDER READ BACK TO: FRANCK TURNER 09/04/24@11:30 Ordering Provider: FRANCK TURNER Report Released Date/Time: Sep 04, 2024 11:33 AM Reporting Lab: [place] [phone] Performing Lab: [place] [phone] ADENOVIRUS (BIOFIRE) Not Detected -Not D etected [...] -Not Detected Sep 04, 2024 06:55 AM [facility] MAGNESIUM PLASMA Specimen Type: PLASM [...] Reporting Lab: [place] [address] [facility] [address] Performing Lab: [place] [address] [facility] [address] MAGNESIUM 1.8 mg/dL 1.6-2.6 Sep 04, 2024 06:55 AM [facility] PANEL 1 PLASMA Specimen Type: [...] Sep 03, 2024 11:10 AM Reporting Lab: [address] [address] Performing Lab: [address] CREATININE 0.75 mg/dL 0.72-1.25 UREA NITROGEN 13 mg/dL 9-25 GLUCOSE 105 mg/dL H 74-100 SODIUM 128 mmol/L L 136-145 POTASSIUM 3.9 mmol/L 3.5-5.1 CHLORIDE 99 mmol/L 98-107 CO2 21 mmol/L L 22-29 CALCIUM 8.0 mg/dL L 8.4-10.2 ANION GAP 8 meq/L 3-19 eGFR (CKD-EPI) >90 Sep 04, 2024 06:02 AM [facility] GLUCOSE-HAND MONITOR CAPILLARY Specime n Type: CAPILLARY Comment: Test performed by: [id number] Meter #: [id number] Ordering Provider: FRANCK TURNER Report Released Date/Time: Sep 04, 2024 06:28 AM Reporting Lab: [address] Performing Lab: [address] GLUCOSE-HAND MONITOR 114 mg/dL H 71-99 Sep 03, 2024 05:19 PM [facility] GLUCOSE-HAND MONITOR CAPILLARY Specime n Type: CAPILLARY Comment: Test performed by: [id number] Meter #: [id number] Ordering Provider: FARNCK TURNER Report Released Date/Time: Sep 03, 2024 05:37 PM Reporting Lab: [address] Performing Lab: [address] [address] GLUCOSE-HAND MONITOR 124 mg/dL H 71-99 Sep 03, 2024 04:41 PM [facility] GLUCOSE-HAND MONITOR CAPILLARY Specime n Type: CAPILLARY Comment: Test performed by: [id number] Meter #: [id number] Ordering Provider: FRANCK TURNER Report Released Date/Time: Sep 03, 2024 06:09 PM Reporting Lab: [address] [address] Performing Lab: [address] [address] GLUCOSE-HAND MONITOR 112 mg/dL H 71-99 Sep 03, 2024 01:35 PM [facility] URINE LYTES URINE Specimen Type : URINE Comment: ~Altered mental status with no identifiable cause Ordering Provider: FRANCK TURNER Report Released Date/Time: Sep 02, 2024 04:44 PM Reporting Lab: [address] [address] Performing Lab: [address] [address] SODIUM 130 mmol/L POTASSIUM 47.6 mmol/L CHLORIDE 137 mmol/L Sep 03, 2024 01:35 PM [facility] CREATININE URINE Specimen Type: URINE Comment: ~Altered mental status with no identifiable cause Ordering Provider: FRANCK TURNER Report Released Date/Time: Sep 02, 2024 04:44 PM Reporting Lab: [address] [address] Performing Lab: [address] [address] CREATININE 150.9 mg/dL Sep 03, 2024 01:35 PM [facility] UREA NITROGEN URINE Specimen Type : URINE Comment: ~Altered mental status with no identifiable cause Ordering Provider: FRANCK TURNER Report Released Date/Time: Sep 02, 2024 04:44 PM Reporting Lab: [address] [address] Performing Lab: [address] [address] UREA NITROGEN 320 mg/dL Sep 03, 2024 01:35 PM [facility] OSMOLALITY URINE Specimen Type: URINE Comment: ~Altered mental status with no identifiable cause Ordering Provider: FRANCK TURNER Report Released Date/Time: Sep 02, 2024 04:44 PM Reporting Lab: [address] [address] Performing Lab: [address] [address] OSMOLALITY 522 mosm/kg 38-1400 Sep 03, 2024 01:35 PM [facility] URINALYSIS WITH REFLEX TO CULTURE URINE Specimen Type: URINE Comment: ~Altered mental status with no identifiable cause Ordering Provider: FRANCK TURNER Report Released Date/Time: Sep 02, 2024 04:44 PM Reporting Lab: [address] [address] Performing Lab: [address] [address] URINE COLOR Yellow Colorless-Yellow APPEARANCE CLOUDY H [...] H 0-28 Sep 03, 2024 11:58 AM [facility] GLUCOSE-HAND MONITOR CAPILLARY Specime n Type: CAPILLARY Comment: AAMIR RN notified Test performed by: [id number] Meter #: [id number] Ordering Provider: FRANCK TURNER Report Released Date/Time: Sep 03, 2024 12:15 PM Reporting Lab: [address] [address] Performing Lab: [address] [address] GLUCOSE-HAND MONITOR 135 mg/dL H Sep 03, 2024 07:09 AM [facility] GLUCOSE-HAND MONITOR CAPILLARY Specime n Type: CAPILLARY Comment: Test performed by: [id number] Meter #: [id number] Ordering Provider: FRANCK TURNER Report Released Date/Time: Sep 03, 2024 07:26 AM Reporting Lab: [address] [address] Performing Lab: [address] [address] GLUCOSE-HAND MONITOR 120 mg/dL H -Sep 03, 2024 07:05 AM [facility] PANEL 1 PLASMA Specimen Type: [...] Sep 02, 2024 04:29 PM Reporting Lab: [address] [address] Performing Lab: [address] [address] CREATININE 0.82 mg/dL 0.72-1.25 UREA NITROGEN 12 mg/dL 9-25 GLUCOSE 109 mg/dL H 74-100 SODIUM 129 mmol/L L 136-145 POTASSIUM 4.2 mmol/L 3.5-5.1 CHLORIDE 99 mmol/L 98-107 CO2 21 mmol/L L 22-29 CALCIUM 8.1 mg/dL L 8.4-10.2 ANION GAP 9 meq/L 3-19 eGFR (CKD-EPI) 90 Sep 03, 2024 07:05 AM [facility] CBC/PLT BLOOD Specimen Type: BLOOD No comment entered. Ordering Provider: FRANCK TURNER Report Released Date/Time: Sep 02, 2024 04:29 PM Reporting Lab: [address] [address] Performing Lab: [address] [address] WBC 6.9 10*3/uL 5.0-10.0 RBC 3.48 10*6/uL L 4.6-6.2 HGB 9.5 g/dL L 14.0-18.0 HCT 29.1 L 42.0-52.0 MCV 83.6 fL 80.0-94.0 MCH 27.3 pg 27.0-31.0 MCHC 32.6 g/dL 32.0-36.0 PLT 258 10*3/uL 150-450 MPV 10.3 fL 9.0-13.1 RDW 14.8 11.0-16.0 NRBC 0.0 0.0-0.0 Sep 03, 2024 07:05 AM [facility] MAGNESIUM PLASMA Specimen Type: PLASM [...] Sep 02, 2024 04:29 PM Reporting Lab: [address] [address] Performing Lab: [address] [address] MAGNESIUM 1.7 mg/dL 1.6-2.6 Sep 03, 2024 07:05 AM [facility] GLYCOHEMOGLOBIN BLOOD Specimen Type: BLOOD Comment: Prediabetes: 5.7%-6.4% Diabetes: >= 6.5% [place]-DoD guidelines for A1c interpretation: Glycemic control targets are based on Shared Decision Making between clinicians and patients. Criteria used to establish an A1c target recommendation can be found at https://www.sc.gov/qualityandpatientsafety/ and include the use of result accuracy [...] 8.73 and 9.27. Ref: https://ngsp.org/CAPdata.asp. The in-house [employer] D-100 analyzer has a historical CV <= 2%. Contact the laboratory for further performance characteristics of this assay. Ordering Provider: FRANCK TURNER Report Released Date/Time: Sep 02, 2024 04:29 PM Reporting Lab: [address] [address] Performing Lab: [place] [phone] GLYCOHEMOGLOBIN 5.6 4.4-5.6 Sep 03, 2024 07:05 AM [facility] OSMOLALITY SERUM Specimen Type: SERUM No comment entered. Ordering Provider: FRANCK TURNER Report Released Date/Time: Sep 02, 2024 04:44 PM Reporting Lab: [address] [address] Performing Lab: [address] [address] OSMOLALITY 271 mosm/kg L 280-300 Sep 02, 2024 08:15 PM [facility] GLUCOSE-HAND MONITOR CAPILLARY Specime n Type: CAPILLARY Comment: AAMIR DEXTER notified Test performed by: [id number] Meter #: [id number] Ordering Provider: FRANCK TURNER Report Released Date/Time: Sep 02, 2024 08:57 PM Reporting Lab: [address] [address] Performing Lab: [address] [address] GLUCOSE-HAND MONITOR 126 mg/dL H 71-99 Sep 02, 2024 06:10 PM [facility] MRSA SURVL NARES DNA NARES [...] Sep 02, 2024 05:12 PM Reporting Lab: [address] [address] Performing Lab: [address] [address] MRSA SURVL NARES DNA Negative Negative Sep 02, 2024 05:36 PM [facility] GLUCOSE-HAND MONITOR CAPILLARY Specime n Type: CAPILLARY Comment: Test performed by: [id number] Meter #: [id number] Ordering Provider: FRANCK TURNER Report Released Date/Time: Sep 02, 2024 05:53 PM Reporting Lab: [address] [address] Performing Lab: [address] [address] GLUCOSE-HAND MONITOR 127 mg/dL H 71-99 Aug 29, 2024 10:04 PM [facility] URINALYSIS WITH REFLEX TO CULTURE URINE Specimen Type: URINE Comment: ~For Test: URINALYSIS WITH REFLEX TO CULTURE ~REORDER Ordering Provider: FELISA COLE Report Released Date/Time: Aug 29, 2024 09:36 PM Reporting Lab: [address] [address] Performing Lab: [address] [address] URINE COLOR Yellow Colorless-Yellow APPEARANCE Clear Clear [...] Aug 29, 2024 07:55 PM Reporting Lab: [address] [address] Performing Lab: [address] [address] HIGH SENSITIVITY TROPONIN I 7 4-35 Aug 29, 2024 08:32 PM [facility] CBC/PLT BLOOD Specimen Type: BLOOD No comment entered. Ordering Provider: FELISA COLE Report Released Date/Time: Aug 29, 2024 07:55 PM Reporting Lab: [address] [address] Performing Lab: [address] [address] WBC 11.2 10*3/uL H 5.0-10.0 RBC 3.97 [...] Aug 29, 2024 07:55 PM Reporting Lab: [address] [address] Performing Lab: [address] [address] CREATININE 0.85 mg/dL 0.72-1.25 UREA NITROGEN 15 [...] mm[Hg] 15 /min 94 % [facility] Sep 03, [...] 08, 2024 ADVANCE DIRECTIVE DISCUSSION [facility] Radiology Reports: +/- 30 days of [...] BRAIN W & W/O: LUIS MANUEL PERDOMO [id number] -1945 M Exm Date: SEP 06, 2024@13:40 Req Phys: FRANCK TURNERSav [facility] Loc: 5-MED/TEL/09-06-2024@19:09 Img Loc: [facility] Service: [place] [address] (Case [id number] COMPLETE) MRI BRAIN W & W/O (MRI Detailed) CPT:62501 Contrast Media : Gadolinium Reason for Study: SEE CLINICAL HISTORY Pharmaceutical: GADOTERIDOL 279.3MG/ML 20ML INJ, 19ml Clinical History: MRI Screening (Required): IMPLANTED DEVICE DOCUMENTATION IMPLANTED DEVICE DOCUMENTATION NOT FOUND Does the have any Cardiac Implants? None Does the have any implanted stimulators? None Does the [place] have cochlear implants? No Does the [place] have Cerebral aneurysm clip(s)? I don't know Does the have any shrapnel? I don't know If yes, where in your body? Please list other implants not listed above: MRI table has a weight limit of 551 lbs. [place]'s Weight: *212 lb [96.16 kg] (09/04/2024 05:19) Is this patient claustrophobic?: No REASON FOR EXAM:MULTIPLE SCLEROSIS (indicate suspected or established) PERTINENT PATIENT HISTORY: MS c/f for flare Risk factors for GADOLINIUM NEPHROGENIC SYSTEMIC SCLEROSIS: Report Status: Verified Date Reported: SEP 06, 2024 Date Verified: SEP 06, 2024 Woven [employer] Shade Assembler E-Sig: Report: MRI brain without and [...] Staff: ARCENIO LEYVA, Staff Radiologist Verified by patient support specialist for ARCENIO LEYVA /ARCENIO AVILA AAMIRWILSON-CDD [facility] Sep 06, 2024 01:40 PM MRI C SPINE W & W/ O CONTRAST(FURTHER SEQUENCES): LUIS MANUEL PERDOMO [id number] -1945 M Exm Date: SEP 06, 2024@13:40 Req Phys: AZARFRANCK WHEELER Pat Loc: 5-MED/TEL/09-07-2024@06:42 Img Loc: [facility] Service: [place] [address] (Case [id number] COMPLETE) MRI C SPINE W & W/O CONTRAST(FURT(MRI Detailed) CPT:38530 Contrast Media : Gadolinium Reason for Study: SEE CLINICAL HISTORY Pharmaceutical: GADOTERIDOL 279.3MG/ML 20ML INJ, 19ml Clinical History: STATUS OF PLAIN FILMS:Not performed (Provide justification for MR W/O prior plain films below.) MRI for MS MRI Screening (Required): IMPLANTED DEVICE DOCUMENTATION IMPLANTED DEVICE DOCUMENTATION NOT FOUND Does the have any Cardiac Implants? None Does the [place] have any implanted stimulators? None Does the have cochlear implants? No Does the [place] have Cerebral aneurysm clip(s)? I don't know [...] 07, 2024 Date Verified: SEP 07, 2024 Woven Wood Shade Assembler E-Sig: Report: EXAMINATION: MRI OF THE [...] Interpreting Staff: HUANG TAI, Radiologist Verified by patient support specialist for HUANG TAI /HUANG WHEATLEY-Sav [facility] Sep 03, 2024 10:45 AM CHEST SINGLE(1) EW: LUIS MANUEL PERDOMO [id number] -1945 M Ex Date: SEP 03, 2024@10:45 Req Phys: FRANCK TURNER Pat Loc: 5-MED/TEL/09-03-2024@10:56 Img Loc: [facility] RADIOLOGY Service: [place] [address] (Case [id number] COMPLETE)CHEST SINGLE(1) VIEW (RAD Detailed) CPT:20566 Proc Modifiers : PORTABLE EXAM Reason for Study: Eval volume status Clinical History: Report Status: Verified Date Reported: SEP 03, 2024 Date Verified: SEP 03, 2024 Woven Wood Shade Assembler E-Sig: Report: EXAMINATION: SINGLE VIEW CHEST [...] Interpreting Staff: HUANG TAI, Radiologist Verified by patient support specialist for HUANG TAI /HUANG WHEATLEY-CDD [facility] Aug 29, 2024 08:[address] HEAD W/O CONT: LUIS MANUEL PERDOMO [id number] -1945 M Exm Date: AUG 29, 2024@20:28 Req Phys: FELISA COLE Loc: ED/4P-12A (Req'g Loc) Img Loc: CT SCAN Service: [place] [address] (Case [id number] COMPLETE) CT HEAD W/O CONT (CT Detailed) CPT:78478 Reason for Study: SEE CLINICAL HISTORY Clinical History: REASON FOR SEND OUT: ATTENDING PHYSICIAN NAME: New transient neurological s/s - suspected TIA HISTORY/REASON FOR EXAM: confusion Report Status: Verified Date Reported: AUG 29, 2024 Date Verified: AUG 29, 2024 Woven Wood Shade Assembler E-Sig: Report: HISTORY confusion COMPARISON No [...] Staff: ABDIRAHMAN CROW, Staff Physician Verified by patient support specialist for ABDIRAHMAN CROW /GUERITA CROW,ABDIRAHMAN [facility] [...] Lab: [facility] [CLIA# [id number]] [address] [place] [id number] Accession [UID]: [id number] [[id number]] Received: Sep 03, 2024@14:02 Collection sample: URINE, CLEAN CATCH Collection date: Sep 03, 2024 13:35 Site/Specimen: URINE Provider: FRANCK TURNER Test(s) ordered: CULTURE, URINE................ completed: Sep 06, 2024 * BACTERIOLOGY FINAL REPORT => Sep 06, 2024 11:59 TECH CODE: [id number] CULTURE RESULTS: DUNAE GLABRATA - Quantity: >100,000 CFU/ML Bacteriology Remark(s): <10,000 CFU/ML. 09/04/2024 >100,000 CFU/ML YEAST. 09/05/2024 =--=--=--=--=--=--=--=--=--=-- =--=--=--=--=--=--=--=--=--=-- =--=--=--=--=--=-- Performing Laboratory: Bacteriology Report Performed By: [facility] [CLIA# [id number]] [address] [place], [place] [id number] [facility]ABRESE [facility] Sep 02, 2024 06:00 PM LR MICROBIOLOGY RE PORT: Reporting Lab: [facility] [IA# [id number]] [address] [place], [place] [id number] Accession [UID]: [id number] [[id number]] Received: Sep 02, 2024@18:07 Collection sample: BLD CULTURE BOTTLES Collection date: Sep 02, 2024 18:00 Site/Specimen: BLOOD Provider: FRANCK TURNER Comment on specimen: L HAND Test(s) ordered: CULTURE, BLOOD................ completed: Sep 08, 2024 * BACTERIOLOGY FINAL REPORT => Sep 08, 2024 08:25 TECH CODE: [id number] Bacteriology Remark(s): Blood culture status=NO GROWTH (unless notified otherwise) 09/03/2024 AEROBIC: NO GROWTH ANAEROBIC: NO GROWTH =--=--=--=--=--=--=--=--=--=-- =--=--=--=--=--=--=--=--=--=-- =--=--=--=--=--=-- Performing Laboratory: Bacteriology Report Performed By: [facility] [CLIA# [id number]] [address] [place], [place] [id number] MAGDY CALABRESE [facility] Aug 29, 2024 10:18 PM LR MICROBIOLOGY RE PORT: Reporting Lab: [facility] [CLIA# [id number]] [address] [place], [place] [id number] Accession [UID]: [id number] [[id number]] Received: Aug 29, 2024@22:18 Collection sample: URINE, CLEAN CATCH Collection date: Aug 29, 2024 22:18 Site/Specimen: URINE Provider: FELISA COLE Test(s) ordered: CULTURE, URINE................ completed: Aug 31, 2024 09:51 * BACTERIOLOGY FINAL REPORT => Aug 31, 2024 09:51 TECH CODE: [id number] Bacteriology Remark(s): NO GROWTH 08/30/2024 <10,000 CFU/ML. 08/31/2024 =--=--=--=--=--=--=--=--=--=-- =--=--=--=--=--=--=--=--=--=-- =--=--=--=--=--=-- Performing Laboratory: Bacteriology Report Performed By: [facility] [CLIA# [id number]] [address] [place] [address] MAGDY CALABRESE[facility]
--- OUTSIDE RECORDS SUMMARY | 2024-09-03 17:48 | XMS_ITS ---
[place] DAILY HOSPITALIZATION DATA [facility] Encounter Summary Created on: September 22, 2024 LUIS MANUEL PERDOMO : 1945 Sex: Male Author Name [facility] Organization 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 Name Role Phone YULISSA HENDERSON Primary Care [...] PLAN F Mar 24, 2014 PLAN F [id number] [phone] LUIS MANUEL PERDOMO PATIENT [facility] [place] [facility] PREFERRED PROVIDER ORGANIZAT ION (PPO) [facility] SLE Sep 21, 2012 [id number] [phone] LUIS MANUEL PERDOMO PATIENT [employer] ([id number]) PRESCRIPT ION WL3A Sep 21, 2012 [id number] [phone] LUIS MANUEL PERDOMO PATIENT MEDICARE (WNR) MEDICARE (M) PART B Sep 21, 2012 PART B [id number] [phone] NOEMI PERDOMO PATIENT MEDICARE (WNR) MEDICARE (M) PART A Jan 22, 2011 PART A [id number] LEANNE, NOEMI PATIENT MEDICARE PART D (WNR) MEDICARE (M) PART D Mar 24, 2014 PART D [id number] LUIS MANUEL PERDOMO PATIENT Selected Encounter This section includes the information on record at [place] for the Encounter. Date/Time Encounter Type Encounter Description Reason Pro vider Source Sep 03, 2024 09:48 PM Inpatient Visit DAILY HOSPITALIZATION DATA [facility] Encounter Template Text not used by [place] Plan of Treatment: Future Appointments (+ 6 months) and Future Tests (+/- 45 days) The Plan of Treatment section includes future care activities for the [facility] This section includes future appointments and future orders which are active, pending or scheduled. Future Appointments This section includes appointments that were scheduled to occur 6 months from the date of the Encounter, up to a maximum of 20 appointments. The data comes from all [place] treatment facilities. Appointment Date/Time Appointment Type Appointme nt Facility Name Sep 13, 2024 08:00 AM AMBULATORY - NONE [facility] Sep 30, 2024 01:30 PM [facility]ATORY - SURGERY [facility] Active, Pending, and Scheduled Orders This section includes a listing of several types of active, pending, and scheduled orders, including clinic medications orders, diagnostic test orders, procedure orders and consult orders; where the start date of the order is 45 days before the date of the Encounter or 45 days after the date of theEncounter. The data comes from all [facility] facilities. Test Date/Time Test Type Test Details Facility Name Sep 13, 2024 01:33 PM Consult Order [facility] Cons [facility] Lab Results: +/- 30 days of the encounter This section includes the Chemistry and Hematology Lab Results on record with [place] for the patient. Radiology Reports and Pathology Reports are provided separately, in subsequent sections. Lab Results This section contains the Chemistry/Hematology Results that were resulted 30 days before or 30 daysafter the date of the Encounter. Date/Time Source Result Type Result - Unit Interpretation Reference Range Specimen Type Comment Sep 09, 2024 12:16 PM [facility] GLUCOSE-HAND MONITOR CAPILLARY Specimen Type: CAPILLARY Comment: Test performed by: [id number] Meter #: [id number] Ordering Provider: FRANCK TURNER Report Released Date/Time: Sep 09, 2024 12:33 PM Reporting Lab: [address] [address] Performing Lab: [address] [address] GLUCOSE-HAND MONITOR 116 mg/dL H Sep 09, 2024 06:07 AM [facility] GLUCOSE-HAND MONITOR CAPILLARY Specime n Type: CAPILLARY Comment: Test performed by: [id number] Meter #: [id number] Ordering Provider: FRANCK TURNER Report Released Date/Time: Sep 09, 2024 08:17 AM Reporting Lab: [address] [address] Performing Lab: [address] [address] GLUCOSE-HAND MONITOR 112 mg/dL H Sep 08, 2024 09:13 PM [facility] GLUCOSE-HAND MONITOR CAPILLARY Specime n Type: CAPILLARY Comment: Test performed by: [id number] Meter #: [id number] Ordering Provider: FRANCK TURNER Report Released Date/Time: Sep 08, 2024 09:31 PM Reporting Lab: [address] [address] Performing Lab: [address] [address] GLUCOSE-HAND MONITOR 107 mg/dL H Sep 08, 2024 03:49 PM [facility] GLUCOSE-HAND MONITOR CAPILLARY Specime n Type: CAPILLARY Comment: AAMIR RN notified Test performed by: [id number] Meter #: [id number] Ordering Provider: FRANCK TURNER Report Released Date/Time: Sep 08, 2024 04:33 PM Reporting Lab: [address] [address] Performing Lab: [address] [address] GLUCOSE-HAND MONITOR 162 mg/dL H Sep 08, 2024 11:43 AM [facility] GLUCOSE-HAND MONITOR CAPILLARY Specime n Type: CAPILLARY Comment: AAMIR RN notified Test performed by: [id number] Meter #: [id number] Ordering Provider: FRANCK TURNER Report Released Date/Time: Sep 08, 2024 12:03 PM Reporting Lab: [address] [address] Performing Lab: [address] [address] GLUCOSE-HAND MONITOR 133 mg/dL H Sep 08, 2024 06:13 AM [facility] GLUCOSE-HAND MONITOR CAPILLARY Specime n Type: CAPILLARY Comment: Test performed by: [id number] Meter #: [id number] Ordering Provider: FRANCK TURNER Report Released Date/Time: Sep 08, 2024 06:46 AM Reporting Lab: [address] [address] Performing Lab: [address] [address] GLUCOSE-HAND MONITOR 104 mg/dL H Sep 07, 2024 07:59 PM [facility] GLUCOSE-HAND MONITOR CAPILLARY Specime n Type: CAPILLARY Comment: Test performed by: [id number] Meter #: [id number] Ordering Provider: FRANCK TURNER Report Released Date/Time: Sep 07, 2024 09:05 PM Reporting Lab: [address] [address] Performing Lab: [address] [address] GLUCOSE-HAND MONITOR 107 mg/dL H Sep 07, 2024 04:39 PM [facility] GLUCOSE-HAND MONITOR CAPILLARY Specime n Type: CAPILLARY Comment: Test performed by: [id number] Meter #: [id number] Ordering Provider: FRANCK TURNER Report Released Date/Time: Sep 07, 2024 05:09 PM Reporting Lab: [address] [address] Performing Lab: [address] [address] GLUCOSE-HAND MONITOR 105 mg/dL H Sep 07, 2024 11:41 AM [facility] GLUCOSE-HAND MONITOR CAPILLARY Specime n Type: CAPILLARY Comment: Test performed by: [id number] Meter #: [id number] Ordering Provider: FRANCK TURNER Report Released Date/Time: Sep 07, 2024 12:41 PM Reporting Lab: [address] [address] Performing Lab: [address] [address] GLUCOSE-HAND MONITOR 144 mg/dL H Sep 07, 2024 05:56 AM [facility] GLUCOSE-HAND MONITOR CAPILLARY Specime n Type: CAPILLARY Comment: Test performed by: [id number] Meter #: [id number] Ordering Provider: FRANCK TURNER Report Released Date/Time: Sep 07, 2024 06:31 AM Reporting Lab: [address] [address] Performing Lab: [address] [address] GLUCOSE-HAND MONITOR 96 mg/dL Sep 06, 2024 08:10 PM [facility] GLUCOSE-HAND MONITOR CAPILLARY Specime n Type: CAPILLARY Comment: Test performed by: [id number] Meter #: [id number] Ordering Provider: FRANCK TURNER Report Released Date/Time: Sep 06, 2024 08:52 PM Reporting Lab: [address] [address] Performing Lab: [address] [address] GLUCOSE-HAND MONITOR 124 mg/dL H Sep 06, 2024 04:27 PM [facility] GLUCOSE-HAND MONITOR CAPILLARY Specime n Type: CAPILLARY Comment: Test performed by: [id number] Meter #: [id number] Ordering Provider: FRANCK TURNER Report Released Date/Time: Sep 06, 2024 05:15 PM Reporting Lab: [address] [address] Performing Lab: [address] [address] GLUCOSE-HAND MONITOR 107 mg/dL H Sep 06, 2024 12:12 PM [facility] GLUCOSE-HAND MONITOR CAPILLARY Specime n Type: CAPILLARY Comment: Test performed by: [id number] Meter #: [id number] Ordering Provider: FRANCK TURNER Report Released Date/Time: Sep 06, 2024 12:29 PM Reporting Lab: [address] [address] Performing Lab: [address] [address] GLUCOSE-HAND MONITOR 181 mg/dL H -Sep 06, 2024 06:13 AM [facility] GLUCOSE-HAND MONITOR CAPILLARY Specime n Type: CAPILLARY Comment: Test performed by: [id number] Meter #: [id number] Ordering Provider: FRANCK TURNER Report Released Date/Time: Sep 06, 2024 06:36 AM Reporting Lab: [address] [address] Performing Lab: [address] [address] GLUCOSE-HAND MONITOR 102 mg/dL H Sep 05, 2024 08:47 PM [facility] GLUCOSE-HAND MONITOR CAPILLARY Specime n Type: CAPILLARY Comment: Test performed by: [id number] Meter #: [id number] Ordering Provider: FRANCK TURNER Report Released Date/Time: Sep 06, 2024 02:13 AM Reporting Lab: [address] [address] Performing Lab: [address] [address] GLUCOSE-HAND MONITOR 103 mg/dL H Sep 05, 2024 04:40 PM [facility] GLUCOSE-HAND MONITOR CAPILLARY Specime n Type: CAPILLARY Comment: AAMIR RN notified Test performed by: [id number] Meter #: [id number] Ordering Provider: FRANCK TURNER Report Released Date/Time: Sep 05, 2024 05:11 PM Reporting Lab: [address] [address] Performing Lab: [address] [address] GLUCOSE-HAND MONITOR 113 mg/dL H Sep 05, 2024 12:06 PM [facility] GLUCOSE-HAND MONITOR CAPILLARY Specime n Type: CAPILLARY Comment: Test performed by: [id number] Meter #: [id number] Ordering Provider: FRANCK TURNER Report Released Date/Time: Sep 05, 2024 12:23 PM Reporting Lab: [address] [address] Performing Lab: [address] [address] GLUCOSE-HAND MONITOR 115 mg/dL H Sep 05, 2024 06:26 AM [facility] GLUCOSE-HAND MONITOR CAPILLARY Specime n Type: CAPILLARY Comment: AAMIR Correction Dose Test performed by: [id number] Meter #: [id number] Ordering Provider: FRANCK TURNER Report Released Date/Time: Sep 05, 2024 06:43 AM Reporting Lab: [address] [address] Performing Lab: [address] [address] GLUCOSE-HAND MONITOR 111 mg/dL H Sep 04, 2024 08:59 PM [facility] GLUCOSE-HAND MONITOR CAPILLARY Specime n Type: CAPILLARY Comment: AAMIR RN notified Test performed by: [id number] Meter #: [id number] Ordering Provider: FRANCK TURNER Report Released Date/Time: Sep 04, 2024 09:36 PM Reporting Lab: [address] [address] Performing Lab: [address] [address] GLUCOSE-HAND MONITOR 123 mg/dL H Sep 04, 2024 04:41 PM [facility] GLUCOSE-HAND MONITOR CAPILLARY Specime n Type: CAPILLARY Comment: AAMIR RN notified Test performed by: [id number] Meter #: [id number] Ordering Provider: FRANCK TURNER Report Released Date/Time: Sep 04, 2024 05:03 PM Reporting Lab: [address] [address] Performing Lab: [address] [address] GLUCOSE-HAND MONITOR 118 mg/dL H Sep 04, 2024 12:36 PM [facility] GLUCOSE-HAND MONITOR CAPILLARY Specime n Type: CAPILLARY Comment: AAMIR RN notified Test performed by: [id number] Meter #: [id number] Ordering Provider: FRANCK TURNER Report Released Date/Time: Sep 04, 2024 12:53 PM Reporting Lab: [address] [address] Performing Lab: [place] [address] GLUCOSE-HAND MONITOR 129 mg/dL H 71-99 Sep 04, 2024 12:03 PM [facility] RESPIRATORY VIRUS PANEL (BIOFIRE) NASOPHARYN X Specimen Type: NASOPHARYNX Comment: ~For Test: RESPIRATORY VIRUS PANEL (BIOFIRE) ~ORDER READ BACK TO: FRANCK TURNER 09/04/24@11:30 Ordering Provider: FRANCK TURNER Report Released Date/Time: Sep 04, 2024 11:33 AM Reporting Lab: [place] [phone] Performing Lab: [place] [phone] ADENOVIRUS (BIOFIRE) Not Detected -Not D etected [...] -Not Detected Sep 04, 2024 06:55 AM [facility] MAGNESIUM PLASMA Specimen [...] 03, 2024 11:10 AM Reporting Lab: [facility] [address] [facility] [address] Performing Lab: [place] [id number] [facility] [address] MAGNESIUM 1.8 mg/dL 1.6-2.6 Sep 04, 2024 [...] Sep 03, 2024 11:10 AM Reporting Lab: [address] [address] Performing Lab: [address] CREATININE 0.75 mg/dL 0.72-1.25 UREA NITROGEN [...] n Type: CAPILLARY Comment: Test performed by: [id number] Meter #: [id number] Ordering Provider: FRANCK TURNER Report Released Date/Time: Sep 04, 2024 06:28 AM Reporting Lab: [address] Performing Lab: [address] GLUCOSE-HAND MONITOR 114 mg/dL H 71-99 Sep 03, 2024 05:19 PM [facility] GLUCOSE-HAND MONITOR CAPILLARY Specime n Type: CAPILLARY Comment: Test performed by: [id number] Meter #: [id number] Ordering Provider: FRANCK TURNER Report Released Date/Time: Sep 03, 2024 05:37 PM Reporting Lab: [address] Performing Lab: [address] [address] GLUCOSE-HAND MONITOR 124 mg/dL H 71-99 Sep 03, 2024 04:41 PM [facility] GLUCOSE-HAND MONITOR CAPILLARY Specime n Type: CAPILLARY Comment: Test performed by: [id number] Meter #: [id number] Ordering Provider: FRANCK TURNER Report Released Date/Time: Sep 03, 2024 06:09 PM Reporting Lab: [address] [address] Performing Lab: [address] [address] GLUCOSE-HAND MONITOR 112 mg/dL H 71-99 Sep 03, 2024 01:35 PM [facility] CREATININE URINE Specimen Type: URINE Comment: ~Altered mental status with no identifiable cause Ordering Provider: FRANCK TURNER Report Released Date/Time: Sep 02, 2024 04:44 PM Reporting Lab: [facility] [address] [place] [address] Performing Lab: [address] [address] CREATININE 150.9 mg/dL Sep 03, 2024 01:35 PM [facility] URINE LYTES URINE Specimen Type : URINE Comment: ~Altered mental status with no identifiable cause Ordering Provider: FRANCK TURNER Report Released Date/Time: Sep 02, 2024 04:44 PM Reporting Lab: [address] [address] Performing Lab: [address] [address] SODIUM 130 mmol/L POTASSIUM 47.6 mmol/L CHLORIDE 137 mmol/L Sep 03, 2024 01:35 PM [facility] UREA NITROGEN URINE Specimen Type : URINE Comment: ~Altered mental status with no identifiable cause Ordering Provider: FRANCK TURNER Report Released Date/Time: Sep 02, 2024 04:44 PM Reporting Lab: [address] [address] Performing Lab: [address] [address] UREA NITROGEN 320 mg/dL Sep 03, 2024 01:35 PM [facility] URINALYSIS WITH REFLEX TO CULTURE URINE Specimen Type: URINE Comment: ~Altered mental status with no identifiable cause Ordering Provider: FRANCK TURNER Report Released Date/Time: Sep 02, 2024 04:44 PM Reporting Lab: [address] [address] Performing Lab: [address] [address] URINE COLOR Yellow Colorless-Yellow APPEARANCE CLOUDY H [...] 2024 04:44 PM Reporting Lab: [place] [phone] Performing Lab: [place] [phone] OSMOLALITY 522 mosm/kg 38-1400 Sep 03, 2024 11:58 AM [facility] GLUCOSE-HAND MONITOR CAPILLARY Specime n Type: CAPILLARY Comment: AAMIR RN notified Test performed by: [id number] Meter #: [id number] Ordering Provider: FRANCK TURNER Report Released Date/Time: Sep 03, 2024 12:15 PM Reporting Lab: [address] [address] Performing Lab: [address] [address] GLUCOSE-HAND MONITOR 135 mg/dL H Sep 03, 2024 07:09 AM [facility] GLUCOSE-HAND MONITOR CAPILLARY Specime n Type: CAPILLARY Comment: Test performed by: [id number] Meter #: [id number] Ordering Provider: FRANCK TURNER Report Released Date/Time: Sep 03, 2024 07:26 AM Reporting Lab: [address] [address] Performing Lab: [address] [address] GLUCOSE-HAND MONITOR 120 mg/dL H Sep 03, 2024 07:05 AM [facility] CBC/PLT BLOOD Specimen Type: BLOOD No comment entered. Ordering Provider: FRANCK TURNER Report Released Date/Time: Sep 02, 2024 04:29 PM Reporting Lab: [address] [address] Performing Lab: [address] [address] WBC 6.9 10*3/uL 5.0-10.0 RBC 3.48 10*6/uL [...] Sep 02, 2024 04:29 PM Reporting Lab: [address] [address] Performing Lab: [address] [address] MAGNESIUM 1.7 mg/dL 1.6-2.6 Sep 03, 2024 [...] Sep 02, 2024 04:29 PM Reporting Lab: [address] [address] Performing Lab: [address] [address] CREATININE 0.82 mg/dL 0.72-1.25 UREA NITROGEN 12 [...] BLOOD Comment: Prediabetes: 5.7%-6.4% Diabetes: >= 6.5% [facility] guidelines for A1c interpretation: Glycemic control targets are based on Shared Decision Making between clinicians and patients. Criteria used to establish an A1c target recommendation can be found at https://www.[place].gov/qualityandpatientsafety/ and include the use of result accuracy [...] 8.73 and 9.27. Ref: https://ngsp.org/CAPdata.asp. The in-house [employer]-Mini[employer] D-100 analyzer has a historical CV <= 2%. Contact the laboratory for further performance characteristics of this assay. Ordering Provider: FRANCK TURNER Report Released Date/Time: Sep 02, 2024 04:29 PM Reporting Lab: [address] [address] Performing Lab: [place] [phone] GLYCOHEMOGLOBIN 5.6 4.4-5.6 Sep 03, 2024 07:05 AM [facility] OSMOLALITY SERUM Specimen Type: SERUM No comment entered. Ordering Provider: FRANCK TURNER Report Released Date/Time: Sep 02, 2024 04:44 PM Reporting Lab: [address] [address] Performing Lab: [address] [address] OSMOLALITY 271 mosm/kg L 280-300 Sep 02, 2024 08:15 PM [facility] GLUCOSE-HAND MONITOR CAPILLARY Specime n Type: CAPILLARY Comment: AAMIR EDXTER notified Test performed by: [id number] Meter #: [id number] Ordering Provider: FRANCK TURNER Report Released Date/Time: Sep 02, 2024 08:57 PM Reporting Lab: [address] [address] Performing Lab: [address] [address] GLUCOSE-HAND MONITOR 126 mg/dL H 71-99 Sep [...] Sep 02, 2024 05:12 PM Reporting Lab: [address] [address] Performing Lab: [address] [address] MRSA SURVL NARES DNA Negative Negative Sep 02, 2024 05:36 PM [facility] GLUCOSE-HAND MONITOR CAPILLARY Specime n Type: CAPILLARY Comment: Test performed by: [id number] Meter #: [id number] Ordering Provider: FRANCK TURNER Report Released Date/Time: Sep 02, 2024 05:53 PM Reporting Lab: [address] [address] Performing Lab: [address] [address] GLUCOSE-HAND MONITOR 127 mg/dL H 71-99 Aug 29, 2024 10:04 PM [facility] URINALYSIS WITH REFLEX TO CULTURE URINE Specimen Type: URINE Comment: ~For Test: URINALYSIS WITH REFLEX TO CULTURE ~REORDER Ordering Provider: FELISA COLE Report Released Date/Time: Aug 29, 2024 09:36 PM Reporting Lab: [address] [address] Performing Lab: [address] [address] URINE COLOR Yellow Colorless-Yellow APPEARANCE Clear Clear [...] /[LPF] 0-28 Aug 29, 2024 08:32 PM [facility] HIGH SENSITIVITY TROPONIN I PLASMA Specimen [...] Aug 29, 2024 07:55 PM Reporting Lab: [address] [address] Performing Lab: [address] [address] HIGH SENSITIVITY TROPONIN I 7 4-35 Aug 29, 2024 08:32 PM [facility] CBC/PLT BLOOD Specimen Type: BLOOD No comment entered. Ordering Provider: FELISA COLE Report Released Date/Time: Aug 29, 2024 07:55 PM Reporting Lab: [address] [address] Performing Lab: [address] [address] WBC 11.2 10*3/uL H 5.0-10.0 RBC 3.97 10*6/uL L 4.6-6.2 HGB 10.9 g/dL L 14.0-18.0 HCT 33.5 L 42.0-52.0 MCV 84.4 fL 80.0-94.0 MCH 27.5 pg 27.0-31.0 MCHC 32.5 g/dL 32.0-36.0 PLT 230 10*3/uL 150-450 MPV 10.2 fL 9.0-13.1 RDW 14.6 11.0-16.0 NRBC 0.0 0.0-0.0 Aug 29, 2024 08:32 PM [facility] PANEL 5 PLASMA Specimen Type: PLASM [...] Aug 29, 2024 07:55 PM Reporting Lab: [address] [address] Performing Lab: [address] [address] CREATININE 0.85 mg/dL 0.72-1.25 UREA NITROGEN 15 [...] 18 /min 93 % 0 [place] [facility] Sep 03, 2024 04:38 PM 98.5 F 81 /min 129/76 mm[Hg] 15 /min 94 % 0 [facility] Sep 03, 2024 09:07 AM 98.0 F 94 /min 121/71 mm[Hg] 15 /min 90 % 0 [place] [facility] Sep 03, 2024 06:13 AM 217.5 lb 32 [place] [facility] Sep 03, 2024 04:41 AM 98.9 F 92 /min 124/71 mm[Hg] 20 /min 91 % 0 [place] [facility] Advance Directives: All historical and current Section Date Range: From patient's date of to the date document was created. This section includes ALL of a patient's completed or amended [place] Advance and Rescinded Directives. The entries below indicate that a directive exists for the patient, but an actual copy is not included with this document. The data comes from all [place] facilities. Date Advance Directives Provider Source Mar 08, 2024 ADVANCE DIRECTIVE DISCUSSION [facility] Radiology Reports: +/- 30 days [...] the Encounter. The data comes from all [place] treatment facilities. Date/Time Radiology Report Provider Source Sep 06, 2024 01:40 PM MRI BRAIN W & W/O: LUIS MANUEL PERDOMO [id number] -1945 M Exm Date: SEP 06, 2024@13:40 Req Phys: FRANCK TURNERS[facility] Loc: 5-MED/TEL/09-06-2024@19:09 Img Loc: [facility] Service: [place] [address] (Case [id number] COMPLETE) MRI BRAIN W & W/O (MRI Detailed) CPT:46660 Contrast Media : Gadolinium Reason for Study: SEE CLINICAL HISTORY Pharmaceutical: GADOTERIDOL 279.3MG/ML 20ML INJ, 19ml Clinical History: MRI Screening (Required): IMPLANTED DEVICE DOCUMENTATION IMPLANTED DEVICE DOCUMENTATION NOT FOUND Does the have any Cardiac Implants? None Does the have any implanted stimulators? None Does the [place] have cochlear implants? No Does the [place] have Cerebral aneurysm clip(s)? I don't know Does the have any shrapnel? I don't know If yes, where in your body? Please list other implants not listed above: MRI table has a weight limit of 551 lbs. [place]'s Weight: *212 lb [96.16 kg] (09/04/2024 05:19) Is this patient claustrophobic?: No REASON FOR EXAM:MULTIPLE SCLEROSIS (indicate suspected or established) PERTINENT PATIENT HISTORY: MS c/f for flare Risk factors for GADOLINIUM NEPHROGENIC SYSTEMIC SCLEROSIS: Report Status: Verified Date Reported: SEP 06, 2024 Date Verified: SEP 06, 2024 Steno Typist E-Sig: Report: MRI brain without and with [...] Staff: ARCENIO LEYVA, Staff Radiologist Verified by mortgage loan coordinator for ARCENIO LEYVA /ARCENIO AVILA [facility] Sep 06, 2024 01:40 PM MRI C SPINE W & W/ O CONTRAST(FURTHER SEQUENCES): LUIS MANUEL PERDOMO [id number] -1945 M Exm Date: SEP 06, 2024@13:40 Req Phys: AZARFRANCK WHEELER Pat Loc: 5-MED/TEL/09-07-2024@06:42 Img Loc: [facility] Service: [place] [address] (Case [id number] COMPLETE) MRI C SPINE W & W/O CONTRAST(FURT(MRI Detailed) CPT:61119 Contrast Media : Gadolinium Reason for Study: SEE CLINICAL HISTORY Pharmaceutical: GADOTERIDOL 279.3MG/ML 20ML INJ, 19ml Clinical History: STATUS OF PLAIN FILMS:Not performed (Provide justification for MR W/O prior plain films below.) MRI for MS MRI Screening (Required): IMPLANTED DEVICE DOCUMENTATION IMPLANTED DEVICE DOCUMENTATION NOT FOUND Does the have any Cardiac Implants? None Does the [place] have any implanted stimulators? None Does the have cochlear implants? No Does the [place] have Cerebral aneurysm clip(s)? I don't know [...] 07, 2024 Date Verified: SEP 07, 2024 Steno Typist E-Sig: Report: EXAMINATION: MRI OF THE CERVICAL [...] Interpreting Staff: HUANG TAI, Radiologist Verified by mortgage loan coordinator for HUANG TAI /HUANG [facility] Sep 03, 2024 10:45 AM CHEST SINGLE(1) EW: LUIS MANUEL PERDOMO [id number] -1945 M Ex Date: SEP 03, 2024@10:45 Req Phys: FRANCK TURNER Pat Loc: 5-MED/TEL/09-03-2024@10:56 Img Loc: [facility] Service: [place] [address] (Case [id number] COMPLETE)CHEST SINGLE(1) VIEW (RAD Detailed) CPT:64467 Proc Modifiers : PORTABLE EXAM Reason for Study: Eval volume status Clinical History: Report Status: Verified Date Reported: SEP 03, 2024 Date Verified: SEP 03, 2024 [place] Typist E-Sig: Report: EXAMINATION: SINGLE VIEW CHEST CLINICAL [...] Interpreting Staff: HUANG TAI, Radiologist Verified by mortgage loan coordinator for HUANG ATI /HUANG [facility] Aug 29, 2024 08:[address] HEAD W/O CONT: LUIS MANUEL PERDOMO [id number] -1945 M Exm Date: AUG 29, 2024@20:28 Req Phys: FELISA COLE Loc: ED/4P-12A (Req'g Loc) Img Loc: CT SCAN Service: [place] [address] (Case [id number] COMPLETE) CT HEAD W/O CONT (CT Detailed) CPT:74310 Reason for Study: SEE CLINICAL HISTORY Clinical History: REASON FOR SEND OUT: ATTENDING PHYSICIAN NAME: New transient neurological s/s - suspected TIA HISTORY/REASON FOR EXAM: confusion Report Status: Verified Date Reported: AUG 29, 2024 Date Verified: AUG 29, 2024 [employer]eno Typist E-Sig: Report: HISTORY confusion COMPARISON No prior [...] Staff: ABDIRAHMAN CROW, Staff Physician Verified by mortgage loan coordinator for ABDIRAHMAN CROW /GUERITA CROW,ABDIRAHMAN RUBI[facility] Pathology Reports: +/- 30 days [...] the Encounter. The data comes from all [place] treatment facilities. Date/Time Pathology Report Provider Source Sep 03, 2024 01:35 PM LR MICROBIOLOGY RE PORT: Reporting Lab: [facility] [CLIA# [id number]] [address] [place] [id number] Accession [UID]: [id number] [[id number]] Received: Sep 03, 2024@14:02 Collection sample: URINE, [...] Report Performed By: [facility] [CLIA# [id number]] [address] [place], [place] [id number] MAGDY CALABRESE [facility] Sep 02, 2024 06:00 PM LR MICROBIOLOGY RE PORT: Reporting Lab: [facility] [IA# [id number]] [address] [place], [place] [id number] Accession [UID]: [id number] [[id number]] Received: Sep 02, 2024@18:07 Collection sample: BLD CULTURE BOTTLES Collection date: Sep 02, 2024 18:00 Site/Specimen: BLOOD Provider: FRANCK TURNER Comment on specimen: L HAND Test(s) ordered: CULTURE, BLOOD................ completed: Sep 08, 2024 * BACTERIOLOGY FINAL REPORT => Sep 08, 2024 08:25 TECH CODE: [id number] Bacteriology Remark(s): Blood culture status=NO GROWTH (unless notified otherwise) 09/03/2024 AEROBIC: NO GROWTH ANAEROBIC: NO GROWTH =--=--=--=--=--=--=--=--=--=-- =--=--=--=--=--=--=--=--=--=-- =--=--=--=--=--=-- Performing Laboratory: Bacteriology Report Performed By: [facility] [CLIA# [id number]] [address] [place], [place] [id number] MAGDY [facility] Aug 29, 2024 10:18 PM LR MICROBIOLOGY RE PORT: Reporting Lab: [facility] [CLIA# [id number]] [address] [place], [place] [id number] Accession [UID]: [id number] [[id number]] Received: Aug 29, 2024@22:18 Collection sample: URINE, CLEAN CATCH Collection date: Aug 29, 2024 22:18 Site/Specimen: URINE Provider: FELISA COLE Test(s) ordered: CULTURE, URINE................ completed: Aug 31, 2024 09:51 * BACTERIOLOGY FINAL REPORT => Aug 31, 2024 09:51 TECH CODE: [id number] Bacteriology Remark(s): NO GROWTH 08/30/2024 <10,000 CFU/ML. 08/31/2024 =--=--=--=--=--=--=--=--=--=-- =--=--=--=--=--=--=--=--=--=-- =--=--=--=--=--=-- Performing Laboratory: Bacteriology Report Performed By: [facility] [CLIA# [id number]] [address] [place] [address] MAGDY CALABRESE[facility]
--- OUTSIDE RECORDS SUMMARY | 2024-09-03 18:59 | XMS_ITS ---
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 Name Role Phone YULISSA HENDERSON Primary Care [...] PLAN F Mar 24, 2014 PLAN F [id number] [phone] LUIS MANUEL PERDOMO PATIENT [facility] [place] BLUECARD PREFERRED PROVIDER ORGANIZAT ION (PPO) [facility] SLE Sep 21, 2012 [id number] LUIS MANUEL PERDOMO PATIENT [employer] ([id number]) PRESCRIPT ION WL3A Sep 21, 2012 WL3A [id number] [phone] LUIS MANUEL PERDOMO PATIENT MEDICARE (WNR) MEDICARE (M) PART B Sep 21, 2012 PART B [id number] NOEMI PERDOMO PATIENT MEDICARE (WNR) MEDICARE (M) PART A Jan 22, 2011 PART A [id number] LEANNE, ONEMI PATIENT MEDICARE PART D (WNR) MEDICARE (M) PART D Mar 24, 2014 PART D [id number] LUIS MANUEL PERDOMO PATIENT Selected Encounter This section includes the information on record at [place] for the Encounter. Date/Time Encounter Type Encounter Description Reason Pro vider Source Sep 03, 2024 10:59 PM Inpatient Visit DAILY HOSPITALIZATION DATA [facility] Encounter Template Text not used by [place] Plan of Treatment: Future Appointments (+ 6 months) and Future Tests (+/- 45 days) The Plan of Treatment section includes future care activities for the patient [facility] [place] [facility]. This section includes future appointments [...] 13, 2024 08:00 AM AMBULATORY - NONE [facility] Sep 30, 2024 01:30 PM AMBULATORY - SURGERY [place] [facility] Active, Pending, and Scheduled Orders This section includes a listing of several types of active, pending, and scheduled orders, including clinic medications orders, diagnostic test orders, procedure orders and consult orders; where the start date of the order is 45 days before the date of the Encounter or 45 days after the date of theEncounter. The data comes from all [facility] facilities. Test Date/Time Test Type Test Details Facility Name Sep 13, 2024 01:33 PM Consult Order [facility] SKILL[facility] HOME CARE Cons Elastic Yarn Twister's Choice [facility] Lab Results: +/- 30 days [...] Type Comment Sep 09, 2024 12:16 PM [facility] GLUCOSE-HAND MONITOR CAPILLARY Specimen Type: CAPILLARY Comment: Test performed by: [id number] Meter #: [id number] Ordering Provider: FRANCK TURNER Report Released Date/Time: Sep 09, 2024 12:33 PM Reporting Lab: [address] [address] Performing Lab: [address] [address] GLUCOSE-HAND MONITOR 116 mg/dL H Sep 09, 2024 06:07 AM [facility] GLUCOSE-HAND MONITOR CAPILLARY Specime n Type: CAPILLARY Comment: Test performed by: [id number] Meter #: [id number] Ordering Provider: FRANCK TURNER Report Released Date/Time: Sep 09, 2024 08:17 AM Reporting Lab: [address] [address] Performing Lab: [address] [address] GLUCOSE-HAND MONITOR 112 mg/dL H Sep 08, 2024 09:13 PM [facility] GLUCOSE-HAND MONITOR CAPILLARY Specime n Type: CAPILLARY Comment: Test performed by: [id number] Meter #: [id number] Ordering Provider: FRANCK TURNER Report Released Date/Time: Sep 08, 2024 09:31 PM Reporting Lab: [address] [address] Performing Lab: [address] [address] GLUCOSE-HAND MONITOR 107 mg/dL H Sep 08, 2024 03:49 PM [facility] GLUCOSE-HAND MONITOR CAPILLARY Specime n Type: CAPILLARY Comment: AAMIR RN notified Test performed by: [id number] Meter #: [id number] Ordering Provider: FRANCK TURNER Report Released Date/Time: Sep 08, 2024 04:33 PM Reporting Lab: [address] [address] Performing Lab: [address] [address] GLUCOSE-HAND MONITOR 162 mg/dL H Sep 08, 2024 11:43 AM [facility] GLUCOSE-HAND MONITOR CAPILLARY Specime n Type: CAPILLARY Comment: AAMIR RN notified Test performed by: [id number] Meter #: [id number] Ordering Provider: FRANCK TURNER Report Released Date/Time: Sep 08, 2024 12:03 PM Reporting Lab: [address] [address] Performing Lab: [address] [address] GLUCOSE-HAND MONITOR 133 mg/dL H Sep 08, 2024 06:13 AM [facility] GLUCOSE-HAND MONITOR CAPILLARY Specime n Type: CAPILLARY Comment: Test performed by: [id number] Meter #: [id number] Ordering Provider: FRANCK TURNER Report Released Date/Time: Sep 08, 2024 06:46 AM Reporting Lab: [address] [address] Performing Lab: [address] [address] GLUCOSE-HAND MONITOR 104 mg/dL H Sep 07, 2024 07:59 PM [facility] GLUCOSE-HAND MONITOR CAPILLARY Specime n Type: CAPILLARY Comment: Test performed by: [id number] Meter #: [id number] Ordering Provider: FRANCK TURNER Report Released Date/Time: Sep 07, 2024 09:05 PM Reporting Lab: [address] [address] Performing Lab: [address] [address] GLUCOSE-HAND MONITOR 107 mg/dL H Sep 07, 2024 04:39 PM [facility] GLUCOSE-HAND MONITOR CAPILLARY Specime n Type: CAPILLARY Comment: Test performed by: [id number] Meter #: [id number] Ordering Provider: FRANCK TURNER Report Released Date/Time: Sep 07, 2024 05:09 PM Reporting Lab: [address] [address] Performing Lab: [address] [address] GLUCOSE-HAND MONITOR 105 mg/dL H Sep 07, 2024 11:41 AM [facility] GLUCOSE-HAND MONITOR CAPILLARY Specime n Type: CAPILLARY Comment: Test performed by: [id number] Meter #: [id number] Ordering Provider: FRANCK TURNER Report Released Date/Time: Sep 07, 2024 12:41 PM Reporting Lab: [address] [address] Performing Lab: [address] [address] GLUCOSE-HAND MONITOR 144 mg/dL H Sep 07, 2024 05:56 AM [facility] GLUCOSE-HAND MONITOR CAPILLARY Specime n Type: CAPILLARY Comment: Test performed by: [id number] Meter #: [id number] Ordering Provider: FRANCK TURNER Report Released Date/Time: Sep 07, 2024 06:31 AM Reporting Lab: [address] [address] Performing Lab: [address] [address] GLUCOSE-HAND MONITOR 96 mg/dL Sep 06, 2024 08:10 PM [facility] GLUCOSE-HAND MONITOR CAPILLARY Specime n Type: CAPILLARY Comment: Test performed by: [id number] Meter #: [id number] Ordering Provider: FRANCK TURNER Report Released Date/Time: Sep 06, 2024 08:52 PM Reporting Lab: [address] [address] Performing Lab: [address] [address] GLUCOSE-HAND MONITOR 124 mg/dL H Sep 06, 2024 04:27 PM [facility] GLUCOSE-HAND MONITOR CAPILLARY Specime n Type: CAPILLARY Comment: Test performed by: [id number] Meter #: [id number] Ordering Provider: FRANCK TURNER Report Released Date/Time: Sep 06, 2024 05:15 PM Reporting Lab: [address] [address] Performing Lab: [address] [address] GLUCOSE-HAND MONITOR 107 mg/dL H Sep 06, 2024 12:12 PM [facility] GLUCOSE-HAND MONITOR CAPILLARY Specime n Type: CAPILLARY Comment: Test performed by: [id number] Meter #: [id number] Ordering Provider: FRANCK TURNER Report Released Date/Time: Sep 06, 2024 12:29 PM Reporting Lab: [address] [address] Performing Lab: [address] [address] GLUCOSE-HAND MONITOR 181 mg/dL H -Sep 06, 2024 06:13 AM [facility] GLUCOSE-HAND MONITOR CAPILLARY Specime n Type: CAPILLARY Comment: Test performed by: [id number] Meter #: [id number] Ordering Provider: FRANCK TURNER Report Released Date/Time: Sep 06, 2024 06:36 AM Reporting Lab: [address] [address] Performing Lab: [address] [address] GLUCOSE-HAND MONITOR 102 mg/dL H Sep 05, 2024 08:47 PM [facility] GLUCOSE-HAND MONITOR CAPILLARY Specime n Type: CAPILLARY Comment: Test performed by: [id number] Meter #: [id number] Ordering Provider: FRANCK TURNER Report Released Date/Time: Sep 06, 2024 02:13 AM Reporting Lab: [address] [address] Performing Lab: [address] [address] GLUCOSE-HAND MONITOR 103 mg/dL H Sep 05, 2024 04:40 PM [facility] GLUCOSE-HAND MONITOR CAPILLARY Specime n Type: CAPILLARY Comment: AAMIR RN notified Test performed by: [id number] Meter #: [id number] Ordering Provider: FRANCK TURNER Report Released Date/Time: Sep 05, 2024 05:11 PM Reporting Lab: [address] [address] Performing Lab: [address] [address] GLUCOSE-HAND MONITOR 113 mg/dL H Sep 05, 2024 12:06 PM [facility] GLUCOSE-HAND MONITOR CAPILLARY Specime n Type: CAPILLARY Comment: Test performed by: [id number] Meter #: [id number] Ordering Provider: FRANCK TURNER Report Released Date/Time: Sep 05, 2024 12:23 PM Reporting Lab: [address] [address] Performing Lab: [address] [address] GLUCOSE-HAND MONITOR 115 mg/dL H Sep 05, 2024 06:26 AM [facility] GLUCOSE-HAND MONITOR CAPILLARY Specime n Type: CAPILLARY Comment: AAMIR Correction Dose Test performed by: [id number] Meter #: [id number] Ordering Provider: FRANCK TURNER Report Released Date/Time: Sep 05, 2024 06:43 AM Reporting Lab: [address] [address] Performing Lab: [address] [address] GLUCOSE-HAND MONITOR 111 mg/dL H Sep 04, 2024 08:59 PM [facility] GLUCOSE-HAND MONITOR CAPILLARY Specime n Type: CAPILLARY Comment: AAMIR RN notified Test performed by: [id number] Meter #: [id number] Ordering Provider: FRANCK TURNER Report Released Date/Time: Sep 04, 2024 09:36 PM Reporting Lab: [address] [address] Performing Lab: [address] [address] GLUCOSE-HAND MONITOR 123 mg/dL H Sep 04, 2024 04:41 PM [facility] GLUCOSE-HAND MONITOR CAPILLARY Specime n Type: CAPILLARY Comment: AAMIR RN notified Test performed by: [id number] Meter #: [id number] Ordering Provider: FRANCK TURNER Report Released Date/Time: Sep 04, 2024 05:03 PM Reporting Lab: [address] [address] Performing Lab: [address] [address] GLUCOSE-HAND MONITOR 118 mg/dL H Sep 04, 2024 12:36 PM [facility] GLUCOSE-HAND MONITOR CAPILLARY Specime n Type: CAPILLARY Comment: AAMIR RN notified Test performed by: [id number] Meter #: [id number] Ordering Provider: FRANCK TURNER Report Released Date/Time: Sep 04, 2024 12:53 PM Reporting Lab: [address] [address] Performing Lab: [place] [address] GLUCOSE-HAND MONITOR 129 mg/dL H 71-99 Sep 04, 2024 12:03 PM [facility] RESPIRATORY VIRUS PANEL (BIOFIRE) NASOPHARYN X Specimen Type: NASOPHARYNX Comment: ~For Test: RESPIRATORY VIRUS PANEL (BIOFIRE) ~ORDER READ BACK TO: FRANCK TURNER 09/04/24@11:30 Ordering Provider: FRANCK TURNER Report Released Date/Time: Sep 04, 2024 11:33 AM Reporting Lab: [place] [phone] Performing Lab: [place] [phone] ADENOVIRUS (BIOFIRE) Not Detected -Not D etected [...] -Not Detected Sep 04, 2024 06:55 AM [facility] MAGNESIUM PLASMA Specimen Type: PLASM [...] 11:10 AM Reporting Lab: [place] [facility] [address] [facility] [address] Performing Lab: [place] [address] [facility] [address] MAGNESIUM 1.8 mg/dL 1.6-2.6 Sep 04, 2024 06:55 AM [facility] PANEL 1 PLASMA Specimen Type: [...] Sep 03, 2024 11:10 AM Reporting Lab: [address] [address] Performing Lab: [address] CREATININE 0.75 mg/dL 0.72-1.25 UREA NITROGEN 13 mg/dL 9-25 GLUCOSE 105 mg/dL H 74-100 SODIUM 128 mmol/L L 136-145 POTASSIUM 3.9 mmol/L 3.5-5.1 CHLORIDE 99 mmol/L 98-107 CO2 21 mmol/L L 22-29 CALCIUM 8.0 mg/dL L 8.4-10.2 ANION GAP 8 meq/L 3-19 eGFR (CKD-EPI) >90 Sep 04, 2024 06:02 AM [facility] GLUCOSE-HAND MONITOR CAPILLARY Specime n Type: CAPILLARY Comment: Test performed by: [id number] Meter #: [id number] Ordering Provider: FRANCK TURNER Report Released Date/Time: Sep 04, 2024 06:28 AM Reporting Lab: [address] Performing Lab: [address] GLUCOSE-HAND MONITOR 114 mg/dL H 71-99 Sep 03, 2024 05:19 PM [facility] GLUCOSE-HAND MONITOR CAPILLARY Specime n Type: CAPILLARY Comment: Test performed by: [id number] Meter #: [id number] Ordering Provider: FRANCK TURNER Report Released Date/Time: Sep 03, 2024 05:37 PM Reporting Lab: [address] Performing Lab: [address] [address] GLUCOSE-HAND MONITOR 124 mg/dL H 71-99 Sep 03, 2024 04:41 PM [facility] GLUCOSE-HAND MONITOR CAPILLARY Specime n Type: CAPILLARY Comment: Test performed by: [id number] Meter #: [id number] Ordering Provider: FRANCK TURNER Report Released Date/Time: Sep 03, 2024 06:09 PM Reporting Lab: [address] [address] Performing Lab: [address] [address] GLUCOSE-HAND MONITOR 112 mg/dL H 71-99 Sep 03, 2024 01:35 PM [facility] URINE LYTES URINE Specimen Type : URINE Comment: ~Altered mental status with no identifiable cause Ordering Provider: FRANCK TURNER Report Released Date/Time: Sep 02, 2024 04:44 PM Reporting Lab: [address] [address] Performing Lab: [address] [address] SODIUM 130 mmol/L POTASSIUM 47.6 mmol/L CHLORIDE 137 mmol/L Sep 03, 2024 01:35 PM [facility] CREATININE URINE Specimen Type: URINE Comment: ~Altered mental status with no identifiable cause Ordering Provider: FRANCK TURNER Report Released Date/Time: Sep 02, 2024 04:44 PM Reporting Lab: [address] [address] Performing Lab: [address] [address] CREATININE 150.9 mg/dL Sep 03, 2024 01:35 PM [facility] URINALYSIS WITH REFLEX TO CULTURE URINE Specimen Type: URINE Comment: ~Altered mental status with no identifiable cause Ordering Provider: FRANCK TURNER Report Released Date/Time: Sep 02, 2024 04:44 PM Reporting Lab: [address] [address] Performing Lab: [address] [address] URINE COLOR Yellow Colorless-Yellow APPEARANCE CLOUDY H [...] H 0-28 Sep 03, 2024 01:35 PM [facility] UREA NITROGEN URINE Specimen Type : URINE Comment: ~Altered mental status with no identifiable cause Ordering Provider: FRANCK TURNER Report Released Date/Time: Sep 02, 2024 04:44 PM Reporting Lab: [address] [address] Performing Lab: [address] [address] UREA NITROGEN 320 mg/dL Sep 03, 2024 01:35 PM [facility] OSMOLALITY URINE Specimen Type: URINE Comment: ~Altered mental status with no identifiable cause Ordering Provider: FRANCK TURNER Report Released Date/Time: Sep 02, 2024 04:44 PM Reporting Lab: [address] [address] Performing Lab: [place] [phone] OSMOLALITY 522 mosm/kg 38-1400 Sep 03, 2024 11:58 AM [facility] GLUCOSE-HAND MONITOR CAPILLARY Specime n Type: CAPILLARY Comment: AAMIR RN notified Test performed by: [id number] Meter #: [id number] Ordering Provider: FRANCK TURNER Report Released Date/Time: Sep 03, 2024 12:15 PM Reporting Lab: [address] [address] Performing Lab: [address] [address] GLUCOSE-HAND MONITOR 135 mg/dL H -Sep 03, 2024 07:09 AM [facility] GLUCOSE-HAND MONITOR CAPILLARY Specime n Type: CAPILLARY Comment: Test performed by: [id number] Meter #: [id number] Ordering Provider: FRANCK TURNER Report Released Date/Time: Sep 03, 2024 07:26 AM Reporting Lab: [address] [address] Performing Lab: [address] [address] GLUCOSE-HAND MONITOR 120 mg/dL H -Sep 03, 2024 07:05 AM [facility] CBC/PLT BLOOD Specimen Type: BLOOD No comment entered. Ordering Provider: FRANCK TURNER Report Released Date/Time: Sep 02, 2024 04:29 PM Reporting Lab: [address] [address] Performing Lab: [address] [address] WBC 6.9 10*3/uL 5.0-10.0 RBC 3.48 10*6/uL L 4.6-6.2 HGB 9.5 g/dL L 14.0-18.0 HCT 29.1 L 42.0-52.0 MCV 83.6 fL 80.0-94.0 MCH 27.3 pg 27.0-31.0 MCHC 32.6 g/dL 32.0-36.0 PLT 258 10*3/uL 150-450 MPV 10.3 fL 9.0-13.1 RDW 14.8 11.0-16.0 NRBC 0.0 0.0-0.0 Sep 03, 2024 07:05 AM [facility] MAGNESIUM PLASMA Specimen Type: PLASM [...] Sep 02, 2024 04:29 PM Reporting Lab: [address] [address] Performing Lab: [address] [address] MAGNESIUM 1.7 mg/dL 1.6-2.6 Sep 03, 2024 07:05 AM [facility] GLYCOHEMOGLOBIN BLOOD Specimen Type: BLOOD Comment: Prediabetes: 5.7%-6.4% Diabetes: >= 6.5% [facility] guidelines for A1c interpretation: Glycemic control [...] 8.73 and 9.27. Ref: https://ngsp.org/CAPdata.asp. The in-house [employer] D-100 analyzer has a historical CV <= 2%. Contact the laboratory for further performance characteristics of this assay. Ordering Provider: ALSIP,FRANCK ROBERTDAVID Report Released Date/Time: Sep 02, 2024 04:29 PM Reporting Lab: [address] [address] Performing Lab: [address] [address] GLYCOHEMOGLOBIN 5.6 4.4-5.6 Sep 03, 2024 07:05 AM [facility] OSMOLALITY SERUM Specimen Type: SERUM No comment entered. Ordering Provider: FRANCK TURNER Report Released Date/Time: Sep 02, 2024 04:44 PM Reporting Lab: [address] [address] Performing Lab: [address] [address] OSMOLALITY 271 mosm/kg L 280-300 Sep 03, 2024 07:05 AM [facility] PANEL 1 PLASMA Specimen Type: [...] Sep 02, 2024 04:29 PM Reporting Lab: [address] [address] Performing Lab: [address] [address] CREATININE 0.82 mg/dL 0.72-1.25 UREA NITROGEN 12 mg/dL 9-25 GLUCOSE 109 mg/dL H 74-100 SODIUM 129 mmol/L L 136-145 POTASSIUM 4.2 mmol/L 3.5-5.1 CHLORIDE 99 mmol/L 98-107 CO2 21 mmol/L L 22-29 CALCIUM 8.1 mg/dL L 8.4-10.2 ANION GAP 9 meq/L 3-19 eGFR (CKD-EPI) 90 Sep 02, 2024 08:15 PM [facility] GLUCOSE-HAND MONITOR CAPILLARY Specime n Type: CAPILLARY Comment: AAMIR RN notified Test performed by: [id number] Meter #: [id number] Ordering Provider: FRANCK TURNER Report Released Date/Time: Sep 02, 2024 08:57 PM Reporting Lab: [address] [address] Performing Lab: [address] [address] GLUCOSE-HAND MONITOR 126 mg/dL H 71-99 Sep 02, 2024 06:10 PM [facility] MRSA SURVL NARES DNA NARES [...] Sep 02, 2024 05:12 PM Reporting Lab: [address] [address] Performing Lab: [address] [address] MRSA SURVL NARES DNA Negative Negative Sep 02, 2024 05:36 PM [facility] GLUCOSE-HAND MONITOR CAPILLARY Specime n Type: CAPILLARY Comment: Test performed by: [id number] Meter #: [id number] Ordering Provider: FRANCK TURNER Report Released Date/Time: Sep 02, 2024 05:53 PM Reporting Lab: [address] [address] Performing Lab: [address] [address] GLUCOSE-HAND MONITOR 127 mg/dL H 71-99 Aug 29, 2024 10:04 PM [facility] URINALYSIS WITH REFLEX TO CULTURE URINE Specimen Type: URINE Comment: ~For Test: URINALYSIS WITH REFLEX TO CULTURE ~REORDER Ordering Provider: FELISA COLE Report Released Date/Time: Aug 29, 2024 09:36 PM Reporting Lab: [address] [address] Performing Lab: [address] [address] URINE COLOR Yellow Colorless-Yellow APPEARANCE Clear Clear [...] /[LPF] 0-28 Aug 29, 2024 08:32 PM [facility] HIGH SENSITIVITY TROPONIN I PLASMA Specimen [...] Aug 29, 2024 07:55 PM Reporting Lab: [address] [address] Performing Lab: [address] [address] HIGH SENSITIVITY TROPONIN I 7 4-35 Aug 29, 2024 08:32 PM [facility] CBC/PLT BLOOD Specimen Type: BLOOD No comment entered. Ordering Provider: FELISA COLE Report Released Date/Time: Aug 29, 2024 07:55 PM Reporting Lab: [address] [address] Performing Lab: [address] [address] WBC 11.2 10*3/uL H 5.0-10.0 RBC 3.97 10*6/uL L 4.6-6.2 HGB 10.9 g/dL L 14.0-18.0 HCT 33.5 L 42.0-52.0 MCV 84.4 fL 80.0-94.0 MCH 27.5 pg 27.0-31.0 MCHC 32.5 g/dL 32.0-36.0 PLT 230 10*3/uL 150-450 MPV 10.2 fL 9.0-13.1 RDW 14.6 11.0-16.0 NRBC 0.0 0.0-0.0 Aug 29, 2024 08:32 PM [facility] PANEL 5 PLASMA Specimen Type: PLASM [...] Aug 29, 2024 07:55 PM Reporting Lab: [address] [address] Performing Lab: [address] [address] CREATININE 0.85 mg/dL 0.72-1.25 UREA NITROGEN 15 [...] 93 % 0 [place] Sep 03, 2024 04:38 PM 98.5 F 81 /min 129/76 mm[Hg] 15 /min 94 % [facility] Sep 03, 2024 09:07 AM 98.0 F 94 /min 121/71 mm[Hg] 15 /min 90 % 0 [place] Sep 03, 2024 06:13 AM 217.5 lb 32 [place] [facility] Sep 03, 2024 04:41 AM 98.9 F 92 /min 124/71 mm[Hg] 20 /min 91 % 0 [place] [facility] Advance Directives: All historical and current Section Date Range: From patient's date of to the date document was created. This section includes ALL of a patient's completed or amended [place] Advance and Rescinded Directives. The entries below indicate that a directive exists for the patient, but an actual copy is not included with this document. The data comes from all [place] facilities. Date Advance Directives Provider Source Mar 08, 2024 ADVANCE DIRECTIVE DISCUSSION [facility] Radiology Reports: +/- 30 days of [...] the Encounter. The data comes from all [place] treatment facilities. Date/Time Radiology Report Provider Source Sep 06, 2024 01:40 PM MRI BRAIN W & W/O: LUIS MANUEL PERDOMO [id number] -1945 M Exm Date: SEP 06, 2024@13:40 Req Phys: FRANCK TURNERSav [facility] Loc: 5-MED/TEL/09-06-2024@19:09 Img Loc: [facility] Service: [place] [address] (Case [id number] COMPLETE) MRI BRAIN W & W/O (MRI Detailed) CPT:41355 Contrast Media : Gadolinium Reason for Study: SEE CLINICAL HISTORY Pharmaceutical: GADOTERIDOL 279.3MG/ML 20ML INJ, 19ml Clinical History: MRI Screening (Required): IMPLANTED DEVICE DOCUMENTATION IMPLANTED DEVICE DOCUMENTATION NOT FOUND Does the have any Cardiac Implants? None Does the have any implanted stimulators? None Does the [place] have cochlear implants? No Does the [place] have Cerebral aneurysm clip(s)? I don't know Does the have any shrapnel? I don't know If yes, where in your body? Please list other implants not listed above: MRI table has a weight limit of 551 lbs. [place]'s Weight: *212 lb [96.16 kg] (09/04/2024 05:19) Is this patient claustrophobic?: No REASON FOR EXAM:MULTIPLE SCLEROSIS (indicate suspected or established) PERTINENT PATIENT HISTORY: MS c/f for flare Risk factors for GADOLINIUM NEPHROGENIC SYSTEMIC SCLEROSIS: Report Status: Verified Date Reported: SEP 06, 2024 Date Verified: SEP 06, 2024 Reflow Operator E-Sig: Report: MRI brain without and [...] Staff: ARCENIO LEYVA, Staff Radiologist Verified by risk assessment consultant for ARCENIO LEYVA /ARCENIO AV[facility]A [facility] Sep 06, 2024 01:40 PM MRI C SPINE W & W/ O CONTRAST(FURTHER SEQUENCES): LUIS MANUEL PERDOMO [id number] -1945 M Exm Date: SEP 06, 2024@13:40 Req Phys: AZARFRANCK WHEELER Pat Loc: 5-MED/TEL/09-07-2024@06:42 Img Loc: [facility] Service: [place] [address] (Case [id number] COMPLETE) MRI C SPINE W & W/O CONTRAST(FURT(MRI Detailed) CPT:39394 Contrast Media : Gadolinium Reason for Study: SEE CLINICAL HISTORY Pharmaceutical: GADOTERIDOL 279.3MG/ML 20ML INJ, 19ml Clinical History: STATUS OF PLAIN FILMS:Not performed (Provide justification for MR W/O prior plain films below.) MRI for MS MRI Screening (Required): IMPLANTED DEVICE DOCUMENTATION IMPLANTED DEVICE DOCUMENTATION NOT FOUND Does the have any Cardiac Implants? None Does the [place] have any implanted stimulators? None Does the have cochlear implants? No Does the [place] have Cerebral aneurysm clip(s)? I don't know [...] 07, 2024 Date Verified: SEP 07, 2024 Reflow Operator E-Sig: Report: EXAMINATION: MRI OF THE [...] Interpreting Staff: HUANG TAI, Radiologist Verified by risk assessment consultant for HUANG TAI /HUAGN WHEATLEY-Sav [facility] Sep 03, 2024 10:45 AM CHEST SINGLE(1) EW: LUIS MANUEL PERDOMO [id number] -1945 M Ex Date: SEP 03, 2024@10:45 Req Phys: FRANCK TURNER Pat Loc: 5-MED/TEL/09-03-2024@10:56 Img Loc: [facility] RADIOLOGY Service: [place] [address] (Case [id number] COMPLETE)CHEST SINGLE(1) VIEW (RAD Detailed) CPT:85462 Proc Modifiers : PORTABLE EXAM Reason for Study: Eval volume status Clinical History: Report Status: Verified Date Reported: SEP 03, 2024 Date Verified: SEP 03, 2024 Reflow Operator E-Sig: Report: EXAMINATION: SINGLE VIEW CHEST [...] Interpreting Staff: HUANG TAI, Radiologist Verified by risk assessment consultant for HUANG TAI /HUANG WHEATLEY-CDD [facility] Aug 29, 2024 08:[address] HEAD W/O CONT: LUIS MANUEL PERDOMO [id number] -[id number] M Exm Date: AUG 29, 2024@20:28 Req Phys: FELISA COLE Loc: ED/4P-12A (Req'g Loc) Img Loc: CT SCAN Service: [place] [address] (Case [id number] COMPLETE) CT HEAD W/O CONT (CT Detailed) CPT:85809 Reason for Study: SEE CLINICAL HISTORY Clinical History: REASON FOR SEND OUT: ATTENDING PHYSICIAN NAME: New transient neurological s/s - suspected TIA HISTORY/REASON FOR EXAM: confusion Report Status: Verified Date Reported: AUG 29, 2024 Date Verified: AUG 29, 2024 Reflow Operator E-Sig: Report: HISTORY confusion COMPARISON No [...] appearance. Calvarium is intact Electronically signed by: Abdirahamn Crow MD (August 29 2024 09:36 PM EST) Impression: No acute intracranial pathology. Primary Diagnostic Code: NO ALERT REQUIRED Primary Interpreting Staff: ABDIRAHMAN CROW, Staff Physician Verified by risk assessment consultant for ABDIRAHMAN CROW /GUERITA CROW,ABDIRAHMAN [facility] Pathology Reports: +/- 30 days of [...] the Encounter. The data comes from all [place] treatment facilities. Date/Time Pathology Report Provider Source Sep 03, 2024 01:35 PM LR MICROBIOLOGY RE PORT: Reporting Lab: [facility] [CLIA# [id number]] [address] [place] [id number] Accession [UID]: [id number] [[id number]] Received: Sep 03, 2024@14:02 Collection sample: URINE, [...] =--=--=--=--=--=-- Performing Laboratory: Bacteriology Report Performed By: [facility] [CLIA# [id number]] [address] [place], [place] [address] MAGDY CALABRESE [facility] Sep 02, 2024 06:00 PM LR MICROBIOLOGY RE PORT: Reporting Lab: [facility] [IA# [id number]] [address] [place], [place] [address] Accession [UID]: [id number] [[id number]] Received: Sep 02, 2024@18:07 Collection sample: BLD CULTURE BOTTLES Collection date: Sep 02, 2024 18:00 Site/Specimen: BLOOD Provider: FRANCK TURNER Comment on specimen: L HAND Test(s) ordered: CULTURE, BLOOD................ completed: Sep 08, 2024 * BACTERIOLOGY FINAL REPORT => Sep 08, 2024 08:25 TECH CODE: [id number] Bacteriology Remark(s): Blood culture status=NO GROWTH (unless notified otherwise) 09/03/2024 AEROBIC: NO GROWTH ANAEROBIC: NO GROWTH =--=--=--=--=--=--=--=--=--=-- =--=--=--=--=--=--=--=--=--=-- =--=--=--=--=--=-- Performing Laboratory: Bacteriology Report Performed By: [facility] [CLIA# [id number]] [address] [place], [place] [address] MAGDY CALABRESE [facility] Aug 29, 2024 10:18 PM LR MICROBIOLOGY RE PORT: Reporting Lab: [facility] [CLIA# [id number]] [address] [place], [place] [address] Accession [UID]: [id number] [[id number]] Received: Aug 29, 2024@22:18 Collection sample: URINE, CLEAN CATCH Collection date: Aug 29, 2024 22:18 Site/Specimen: URINE Provider: FELISA COLE Test(s) ordered: CULTURE, URINE................ completed: Aug 31, 2024 09:51 * BACTERIOLOGY FINAL REPORT => Aug 31, 2024 09:51 TECH CODE: [id number] Bacteriology Remark(s): NO GROWTH 08/30/2024 <10,000 CFU/ML. 08/31/2024 =--=--=--=--=--=--=--=--=--=-- =--=--=--=--=--=--=--=--=--=-- =--=--=--=--=--=-- Performing Laboratory: Bacteriology Report Performed By: [facility] [CLIA# [id number]] [address] [place] [address] MAGDY CALABRESE-MALKA [facility]
--- OUTSIDE RECORDS SUMMARY | 2024-09-03 20:04 | XMS_ITS ---
[place] DAILY HOSPITALIZATION DATA [facility] Encounter Summary Created on: September 22, 2024 LUIS MANUEL PERDOMO : 1945 Sex: Male Author Name [facility] [place] [facility] Address [address] [place] [address] Care Team Providers Care Medical Doctor Md/Medical Director Name Role Phone YULISSA HENDERSON Primary [...] PLAN F Mar 24, 2014 PLAN F [id number] LUIS MANUEL PERDOMO PATIENT [facility] [place] [facility] PREFERRED PROVIDER ORGANIZAT ION (PPO) [facility] SLE Sep 21, 2012 [id number] [phone] LUIS MANUEL PERDOMO PATIENT [employer] ([id number]) PRESCRIPT ION WL3A Sep 21, 2012 [id number] LUIS MANUEL PERDOMO PATIENT MEDICARE (WNR) MEDICARE (M) PART B Sep 21, 2012 PART B [id number] NOEMI PERDOMO PATIENT MEDICARE (WNR) MEDICARE (M) PART A Jan 22, 2011 PART A [id number] LEANNE, NOEMI PATIENT MEDICARE PART D (WNR) MEDICARE (M) PART D Mar 24, 2014 PART D [id number] LUIS MANUEL PERDOMO PATIENT Selected Encounter This section includes the information on record at [place] for the Encounter. Date/Time Encounter Type Encounter Description Reason Pro vider Source Sep 04, 2024 12:04 AM Inpatient Visit DAILY HOSPITALIZATION DATA [facility] Encounter Template Text not used by [place] Plan of Treatment: Future Appointments (+ 6 months) and Future Tests (+/- 45 days) The Plan of Treatment section includes [facility] care [facility] for the patient [facility] [place] [facility] This section includes future appointments and future [...] 13, 2024 08:00 AM AMBULATORY - NONE [facility] Sep 30, 2024 01:30 PM AMBULATORY - SURGERY [facility] Active, Pending, and Scheduled Orders This section includes a listing of several types of active, pending, and scheduled orders, including clinic medications orders, diagnostic test orders, procedure orders and consult orders; where the start date of the order is 45 days before the date of the Encounter or 45 days after the date of theEncounter. The data comes from all [facility] facilities. Test Date/Time Test Type Test Details Facility Name Sep 13, 2024 01:33 PM Consult Order [facility] SKILL[facility] HOME CARE Cons Maintainer Central Office's Choice [facility] Lab [...] Type Comment Sep 09, 2024 12:16 PM [facility] GLUCOSE-HAND MONITOR CAPILLARY Specimen Type: CAPILLARY Comment: Test performed by: [id number] Meter #: [id number] Ordering Provider: FRANCK TURNER Report Released Date/Time: Sep 09, 2024 12:33 PM Reporting Lab: [address] [address] Performing Lab: [address] [address] GLUCOSE-HAND MONITOR 116 mg/dL H Sep 09, 2024 06:07 AM [facility] GLUCOSE-HAND MONITOR CAPILLARY Specime n Type: CAPILLARY Comment: Test performed by: [id number] Meter #: [id number] Ordering Provider: FRANCK TURNER Report Released Date/Time: Sep 09, 2024 08:17 AM Reporting Lab: [address] [address] Performing Lab: [address] [address] GLUCOSE-HAND MONITOR 112 mg/dL H Sep 08, 2024 09:13 PM [facility] GLUCOSE-HAND MONITOR CAPILLARY Specime n Type: CAPILLARY Comment: Test performed by: [id number] Meter #: [id number] Ordering Provider: FRANCK TURNER Report Released Date/Time: Sep 08, 2024 09:31 PM Reporting Lab: [address] [address] Performing Lab: [address] [address] GLUCOSE-HAND MONITOR 107 mg/dL H Sep 08, 2024 03:49 PM [facility] GLUCOSE-HAND MONITOR CAPILLARY Specime n Type: CAPILLARY Comment: AAMIR RN notified Test performed by: [id number] Meter #: [id number] Ordering Provider: FRANCK TURNER Report Released Date/Time: Sep 08, 2024 04:33 PM Reporting Lab: [address] [address] Performing Lab: [address] [address] GLUCOSE-HAND MONITOR 162 mg/dL H Sep 08, 2024 11:43 AM [facility] GLUCOSE-HAND MONITOR CAPILLARY Specime n Type: CAPILLARY Comment: AAMIR RN notified Test performed by: [id number] Meter #: [id number] Ordering Provider: FRANCK TURNER Report Released Date/Time: Sep 08, 2024 12:03 PM Reporting Lab: [address] [address] Performing Lab: [address] [address] GLUCOSE-HAND MONITOR 133 mg/dL H Sep 08, 2024 06:13 AM [facility] GLUCOSE-HAND MONITOR CAPILLARY Specime n Type: CAPILLARY Comment: Test performed by: [id number] Meter #: [id number] Ordering Provider: FRANCK TURNER Report Released Date/Time: Sep 08, 2024 06:46 AM Reporting Lab: [address] [address] Performing Lab: [address] [address] GLUCOSE-HAND MONITOR 104 mg/dL H Sep 07, 2024 07:59 PM [facility] GLUCOSE-HAND MONITOR CAPILLARY Specime n Type: CAPILLARY Comment: Test performed by: [id number] Meter #: [id number] Ordering Provider: FRANCK TURNER Report Released Date/Time: Sep 07, 2024 09:05 PM Reporting Lab: [address] [address] Performing Lab: [address] [address] GLUCOSE-HAND MONITOR 107 mg/dL H Sep 07, 2024 04:39 PM [facility] GLUCOSE-HAND MONITOR CAPILLARY Specime n Type: CAPILLARY Comment: Test performed by: [id number] Meter #: [id number] Ordering Provider: FRANCK TURNER Report Released Date/Time: Sep 07, 2024 05:09 PM Reporting Lab: [address] [address] Performing Lab: [address] [address] GLUCOSE-HAND MONITOR 105 mg/dL H Sep 07, 2024 11:41 AM [facility] GLUCOSE-HAND MONITOR CAPILLARY Specime n Type: CAPILLARY Comment: Test performed by: [id number] Meter #: [id number] Ordering Provider: FRANCK TURNER Report Released Date/Time: Sep 07, 2024 12:41 PM Reporting Lab: [address] [address] Performing Lab: [address] [address] GLUCOSE-HAND MONITOR 144 mg/dL H Sep 07, 2024 05:56 AM [facility] GLUCOSE-HAND MONITOR CAPILLARY Specime n Type: CAPILLARY Comment: Test performed by: [id number] Meter #: [id number] Ordering Provider: FRANCK TURNER Report Released Date/Time: Sep 07, 2024 06:31 AM Reporting Lab: [address] [address] Performing Lab: [address] [address] GLUCOSE-HAND MONITOR 96 mg/dL Sep 06, 2024 08:10 PM [facility] GLUCOSE-HAND MONITOR CAPILLARY Specime n Type: CAPILLARY Comment: Test performed by: [id number] Meter #: [id number] Ordering Provider: FRACNK TURNER Report Released Date/Time: Sep 06, 2024 08:52 PM Reporting Lab: [address] [address] Performing Lab: [address] [address] GLUCOSE-HAND MONITOR 124 mg/dL H Sep 06, 2024 04:27 PM [facility] GLUCOSE-HAND MONITOR CAPILLARY Specime n Type: CAPILLARY Comment: Test performed by: [id number] Meter #: [id number] Ordering Provider: FRANCK TURNER Report Released Date/Time: Sep 06, 2024 05:15 PM Reporting Lab: [address] [address] Performing Lab: [address] [address] GLUCOSE-HAND MONITOR 107 mg/dL H Sep 06, 2024 12:12 PM [facility] GLUCOSE-HAND MONITOR CAPILLARY Specime n Type: CAPILLARY Comment: Test performed by: [id number] Meter #: [id number] Ordering Provider: FRANCK TURNER Report Released Date/Time: Sep 06, 2024 12:29 PM Reporting Lab: [address] [address] Performing Lab: [address] [address] GLUCOSE-HAND MONITOR 181 mg/dL H -Sep 06, 2024 06:13 AM [facility] GLUCOSE-HAND MONITOR CAPILLARY Specime n Type: CAPILLARY Comment: Test performed by: [id number] Meter #: [id number] Ordering Provider: FRANCK TURNER Report Released Date/Time: Sep 06, 2024 06:36 AM Reporting Lab: [address] [address] Performing Lab: [address] [address] GLUCOSE-HAND MONITOR 102 mg/dL H Sep 05, 2024 08:47 PM [facility] GLUCOSE-HAND MONITOR CAPILLARY Specime n Type: CAPILLARY Comment: Test performed by: [id number] Meter #: [id number] Ordering Provider: FRANCK TURNER Report Released Date/Time: Sep 06, 2024 02:13 AM Reporting Lab: [address] [address] Performing Lab: [address] [address] GLUCOSE-HAND MONITOR 103 mg/dL H Sep 05, 2024 04:40 PM [facility] GLUCOSE-HAND MONITOR CAPILLARY Specime n Type: CAPILLARY Comment: AAMIR RN notified Test performed by: [id number] Meter #: [id number] Ordering Provider: FRANCK TURNER Report Released Date/Time: Sep 05, 2024 05:11 PM Reporting Lab: [address] [address] Performing Lab: [address] [address] GLUCOSE-HAND MONITOR 113 mg/dL H Sep 05, 2024 12:06 PM [facility] GLUCOSE-HAND MONITOR CAPILLARY Specime n Type: CAPILLARY Comment: Test performed by: [id number] Meter #: [id number] Ordering Provider: FRANCK TURNER Report Released Date/Time: Sep 05, 2024 12:23 PM Reporting Lab: [address] [address] Performing Lab: [address] [address] GLUCOSE-HAND MONITOR 115 mg/dL H Sep 05, 2024 06:26 AM [facility] GLUCOSE-HAND MONITOR CAPILLARY Specime n Type: CAPILLARY Comment: AAMIR Correction Dose Test performed by: [id number] Meter #: [id number] Ordering Provider: FRANCK TURNER Report Released Date/Time: Sep 05, 2024 06:43 AM Reporting Lab: [address] [address] Performing Lab: [address] [address] GLUCOSE-HAND MONITOR 111 mg/dL H Sep 04, 2024 08:59 PM [facility] GLUCOSE-HAND MONITOR CAPILLARY Specime n Type: CAPILLARY Comment: AAMIR RN notified Test performed by: [id number] Meter #: [id number] Ordering Provider: FRANCK TURNER Report Released Date/Time: Sep 04, 2024 09:36 PM Reporting Lab: [address] [address] Performing Lab: [address] [address] GLUCOSE-HAND MONITOR 123 mg/dL H Sep 04, 2024 04:41 PM [facility] GLUCOSE-HAND MONITOR CAPILLARY Specime n Type: CAPILLARY Comment: AAMIR RN notified Test performed by: [id number] Meter #: [id number] Ordering Provider: FRANCK TURNER Report Released Date/Time: Sep 04, 2024 05:03 PM Reporting Lab: [address] [address] Performing Lab: [address] [address] GLUCOSE-HAND MONITOR 118 mg/dL H Sep 04, 2024 12:36 PM [facility] GLUCOSE-HAND MONITOR CAPILLARY Specime n Type: CAPILLARY Comment: AAMIR RN notified Test performed by: [id number] Meter #: [id number] Ordering Provider: FRANCK TURNER Report Released Date/Time: Sep 04, 2024 12:53 PM Reporting Lab: [address] [address] Performing Lab: [place] [address] GLUCOSE-HAND MONITOR 129 mg/dL H 71-99 Sep 04, 2024 12:03 PM [facility] RESPIRATORY VIRUS PANEL (BIOFIRE) NASOPHARYN X Specimen Type: NASOPHARYNX Comment: ~For Test: RESPIRATORY VIRUS PANEL (BIOFIRE) ~ORDER READ BACK TO: FRANCK TURNER 09/04/24@11:30 Ordering Provider: FRANCK TURNER Report Released Date/Time: Sep 04, 2024 11:33 AM Reporting Lab: [place] [phone] Performing Lab: [place] [phone] ADENOVIRUS (BIOFIRE) Not Detected -Not D etected [...] 03, 2024 11:10 AM Reporting Lab: [place] [facility] [address] [facility] [address] Performing Lab: [place] [address] [facility] [address] MAGNESIUM 1.8 mg/dL 1.6-2.6 Sep 04, 2024 [...] 03, 2024 11:10 AM Reporting Lab: [address] [address] Performing Lab: [address] CREATININE 0.75 mg/dL 0.72-1.25 UREA NITROGEN [...] n Type: CAPILLARY Comment: Test performed by: [id number] Meter #: [id number] Ordering Provider: FRANCK TURNER Report Released Date/Time: Sep 04, 2024 06:28 AM Reporting Lab: [address] Performing Lab: [address] GLUCOSE-HAND MONITOR 114 mg/dL H 71-99 Sep 03, 2024 05:19 PM [facility] GLUCOSE-HAND MONITOR CAPILLARY Specime n Type: CAPILLARY Comment: Test performed by: [id number] Meter #: [id number] Ordering Provider: FRANCK TURNER Report Released Date/Time: Sep 03, 2024 05:37 PM Reporting Lab: [address] Performing Lab: [address] [address] GLUCOSE-HAND MONITOR 124 mg/dL H 71-99 Sep 03, 2024 04:41 PM [facility] GLUCOSE-HAND MONITOR CAPILLARY Specime n Type: CAPILLARY Comment: Test performed by: [id number] Meter #: [id number] Ordering Provider: FRANCK TURNER Report Released Date/Time: Sep 03, 2024 06:09 PM Reporting Lab: [address] [address] Performing Lab: [address] [address] GLUCOSE-HAND MONITOR 112 mg/dL H 71-99 Sep 03, 2024 01:35 PM [facility] URINE LYTES URINE Specimen Type : URINE Comment: ~Altered mental status with no identifiable cause Ordering Provider: FRANCK TURNER Report Released Date/Time: Sep 02, 2024 04:44 PM Reporting Lab: [address] [address] Performing Lab: [address] [address] SODIUM 130 mmol/L POTASSIUM 47.6 mmol/L CHLORIDE 137 mmol/L Sep 03, 2024 01:35 PM [facility] CREATININE URINE Specimen Type: URINE Comment: ~Altered mental status with no identifiable cause Ordering Provider: FRANCK TURNER Report Released Date/Time: Sep 02, 2024 04:44 PM Reporting Lab: [address] [address] Performing Lab: [address] [address] CREATININE 150.9 mg/dL Sep 03, 2024 01:35 PM [facility] OSMOLALITY URINE Specimen Type: URINE Comment: ~Altered mental status with no identifiable cause Ordering Provider: FRANCK TURNER Report Released Date/Time: Sep 02, 2024 04:44 PM Reporting Lab: [address] [address] Performing Lab: [address] [address] OSMOLALITY 522 mosm/kg 38-1400 Sep 03, 2024 01:35 PM [facility] URINALYSIS WITH REFLEX TO CULTURE URINE Specimen Type: URINE Comment: ~Altered mental status with no identifiable cause Ordering Provider: FRANCK TURNER Report Released Date/Time: Sep 02, 2024 04:44 PM Reporting Lab: [address] [address] Performing Lab: [address] [address] URINE COLOR Yellow Colorless-Yellow APPEARANCE CLOUDY H [...] H 0-28 Sep 03, 2024 01:35 PM [facility] UREA NITROGEN URINE Specimen Type : URINE Comment: ~Altered mental status with no identifiable cause Ordering Provider: FRANCK TURNER Report Released Date/Time: Sep 02, 2024 04:44 PM Reporting Lab: [place] [phone] Performing Lab: [place] [phone] UREA NITROGEN 320 mg/dL Sep 03, 2024 11:58 AM [facility] GLUCOSE-HAND MONITOR CAPILLARY Specime n Type: CAPILLARY Comment: AAMIR RN notified Test performed by: [id number] Meter #: [id number] Ordering Provider: FRANCK TURNER Report Released Date/Time: Sep 03, 2024 12:15 PM Reporting Lab: [place] [phone] Performing Lab: [place] [phone] GLUCOSE-HAND MONITOR 135 mg/dL H Sep 03, 2024 07:09 AM [facility] GLUCOSE-HAND MONITOR CAPILLARY Specime n Type: CAPILLARY Comment: Test performed by: [id number] Meter #: [id number] Ordering Provider: FRANCK TURNER Report Released Date/Time: Sep 03, 2024 07:26 AM Reporting Lab: [address] [address] Performing Lab: [place] [phone] GLUCOSE-HAND MONITOR 120 mg/dL H Sep 03, 2024 07:05 AM [facility] CBC/PLT BLOOD Specimen Type: BLOOD No comment entered. Ordering Provider: FRANCK TURNER Report Released Date/Time: Sep 02, 2024 04:29 PM Reporting Lab: [address] [address] Performing Lab: [address] [address] WBC 6.9 10*3/uL 5.0-10.0 RBC 3.48 10*6/uL [...] Sep 02, 2024 04:29 PM Reporting Lab: [address] [address] Performing Lab: [address] [address] MAGNESIUM 1.7 mg/dL 1.6-2.6 Sep 03, 2024 [...] Sep 02, 2024 04:29 PM Reporting Lab: [address] [address] Performing Lab: [address] [address] CREATININE 0.82 mg/dL 0.72-1.25 UREA NITROGEN 12 [...] BLOOD Comment: Prediabetes: 5.7%-6.4% Diabetes: >= 6.5% [facility] guidelines for A1c interpretation: Glycemic control targets are based on Shared Decision Making between clinicians and patients. Criteria used to establish an A1c target recommendation can be found at https://www.nd.gov/qualityandpatientsafety/ and include the use of result accuracy [...] 8.73 and 9.27. Ref: https://ngsp.org/CAPdata.asp. The in-house [employer] Focus D-100 analyzer has a historical CV <= 2%. Contact the laboratory for further performance characteristics of this assay. Ordering Provider: FRANCK TURNER Report Released Date/Time: Sep 02, 2024 04:29 PM Reporting Lab: [address] [address] Performing Lab: [place] [phone] GLYCOHEMOGLOBIN 5.6 4.4-5.6 Sep 03, 2024 07:05 AM [facility] OSMOLALITY SERUM Specimen Type: SERUM No comment entered. Ordering Provider: FRANCK TURNER Report Released Date/Time: Sep 02, 2024 04:44 PM Reporting Lab: [address] [address] Performing Lab: [address] [address] OSMOLALITY 271 mosm/kg L 280-300 Sep 02, 2024 08:15 PM [facility] GLUCOSE-HAND MONITOR CAPILLARY Specime n Type: CAPILLARY Comment: AAMIR DEXTER notified Test performed by: [id number] Meter #: [id number] Ordering Provider: FRANCK TURNER Report Released Date/Time: Sep 02, 2024 08:57 PM Reporting Lab: [address] [address] Performing Lab: [address] [address] GLUCOSE-HAND MONITOR 126 mg/dL H 71-99 Sep [...] Sep 02, 2024 05:12 PM Reporting Lab: [address] [address] Performing Lab: [address] [address] MRSA SURVL NARES DNA Negative Negative Sep 02, 2024 05:36 PM [facility] GLUCOSE-HAND MONITOR CAPILLARY Specime n Type: CAPILLARY Comment: Test performed by: [id number] Meter #: [id number] Ordering Provider: FRANCK TURNER Report Released Date/Time: Sep 02, 2024 05:53 PM Reporting Lab: [address] [address] Performing Lab: [address] [address] GLUCOSE-HAND MONITOR 127 mg/dL H 71-99 Aug 29, 2024 10:04 PM [facility] URINALYSIS WITH REFLEX TO CULTURE URINE Specimen Type: URINE Comment: ~For Test: URINALYSIS WITH REFLEX TO CULTURE ~REORDER Ordering Provider: FELISA COLE Report Released Date/Time: Aug 29, 2024 09:36 PM Reporting Lab: [address] [address] Performing Lab: [address] [address] URINE COLOR Yellow Colorless-Yellow APPEARANCE Clear Clear [...] /[LPF] 0-28 Aug 29, 2024 08:32 PM [facility] HIGH SENSITIVITY TROPONIN I [...] Aug 29, 2024 07:55 PM Reporting Lab: [address] [address] Performing Lab: [address] [address] HIGH SENSITIVITY TROPONIN I 7 4-35 Aug 29, 2024 08:32 PM [facility] CBC/PLT BLOOD Specimen Type: BLOOD No comment entered. Ordering Provider: FELISA COLE Report Released Date/Time: Aug 29, 2024 07:55 PM Reporting Lab: [address] [address] Performing Lab: [address] [address] WBC 11.2 10*3/uL H 5.0-10.0 RBC 3.97 10*6/uL L 4.6-6.2 HGB 10.9 g/dL L 14.0-18.0 HCT 33.5 L 42.0-52.0 MCV 84.4 fL 80.0-94.0 MCH 27.5 pg 27.0-31.0 MCHC 32.5 g/dL 32.0-36.0 PLT 230 10*3/uL 150-450 MPV 10.2 fL 9.0-13.1 RDW 14.6 11.0-16.0 NRBC 0.0 0.0-0.0 Aug 29, 2024 08:32 PM [facility] PANEL 5 PLASMA Specimen [...] Aug 29, 2024 07:55 PM Reporting Lab: [address] [address] Performing Lab: [address] [address] CREATININE 0.85 mg/dL 0.72-1.25 UREA NITROGEN 15 [...] Height Weight Body Mass Index Source Sep 04, 2024 10:21 PM 0 [place] Sep 04, 2024 08:38 PM 99.2 F 86 /min 127/68 mm[Hg] 18 /min 93 % 0 [place] [facility] Sep 04, 2024 07:06 PM 1 [place] Sep 04, 2024 06:44 PM 2 [place] Sep 04, 2024 06:39 PM 99.9 F 76 /min 154/68 mm[Hg] 90 % [place] [facility] Advance Directives: All historical and [...] 08, 2024 ADVANCE DIRECTIVE DISCUSSION [facility] Radiology Reports: +/- 30 days [...] W & W/O: LUIS MANUEL PERDOMO FABIAN [id number] -1945 M Exm Date: SEP 06, 2024@13:40 Req Phys: FRANCK TURNER Loc: 5-MED/TEL/09-06-2024@19:09 Img Loc: [facility] Service: [place] [address] (Case [id number] COMPLETE) MRI BRAIN W & W/O (MRI Detailed) CPT:74602 Contrast Media : Gadolinium Reason for Study: SEE CLINICAL HISTORY Pharmaceutical: GADOTERIDOL 279.3MG/ML 20ML INJ, 19ml Clinical History: MRI Screening (Required): IMPLANTED DEVICE DOCUMENTATION IMPLANTED DEVICE DOCUMENTATION NOT FOUND Does the have any Cardiac Implants? None Does the [place] have any implanted stimulators? None Does the [place] have cochlear implants? No Does the [place] have Cerebral aneurysm clip(s)? I don't know Does the [place] have any shrapnel? I don't know If yes, where in your body? Please list other implants not listed above: MRI table has a weight limit of 551 lbs. [place]'s Weight: *212 lb [96.16 kg] (09/04/2024 05:19) Is this patient claustrophobic?: No REASON FOR EXAM:MULTIPLE SCLEROSIS (indicate suspected or established) PERTINENT PATIENT HISTORY: MS c/f for flare Risk factors for GADOLINIUM NEPHROGENIC SYSTEMIC SCLEROSIS: Report Status: Verified Date Reported: SEP 06, 2024 Date Verified: SEP 06, 2024 Past Due Accounts Clerk E-Sig: Report: MRI brain without and [...] Staff: ARCENIO LEYVA, Staff Radiologist Verified by urogynaecologist for ARCENIO LEYVA /ARCENIO AVILA-CDD [facility] Sep 06, 2024 01:40 PM MRI C SPINE W & W/ O CONTRAST(FURTHER SEQUENCES): LUIS MANUEL PERDOMO [id number] -1945 M Exm Date: SEP 06, 2024@13:40 Req Phys: FRANCK TURNERISIAHFLOSav Pat Loc: 5-MED/TEL/09-07-2024@06:42 Img Loc: [facility] Service: [facility] [place] [id number] (Case [id number] COMPLETE) MRI C SPINE W & W/O CONTRAST(FURT(MRI Detailed) CPT:59024 Contrast Media : Gadolinium Reason for Study: SEE CLINICAL HISTORY Pharmaceutical: GADOTERIDOL 279.3MG/ML 20ML INJ, 19ml Clinical History: STATUS OF PLAIN FILMS:Not performed (Provide justification for MR W/O prior plain films below.) MRI for MS MRI Screening (Required): IMPLANTED DEVICE DOCUMENTATION IMPLANTED DEVICE DOCUMENTATION NOT FOUND Does the [place] have any Cardiac Implants? None Does the have any implanted stimulators? None Does the have cochlear implants? No Does the [place] have Cerebral aneurysm clip(s)? I don't know [...] 07, 2024 Date Verified: SEP 07, 2024 Past Due Accounts Clerk E-Sig: Report: EXAMINATION: MRI OF THE [...] Interpreting Staff: HUANG TAI, Radiologist Verified by urogynaecologist for HUANG TAI /HUANG WHEATLEY-Sav [facility] Sep 03, 2024 10:45 AM CHEST SINGLE(1) EW: LUIS MANUEL PERDOMO [id number] -1945 M Exm Date: SEP 03, 2024@10:45 Req Phys: FRANCK TURNER Pat Loc: 5-MED/TEL/09-03-2024@10:56 Img Loc: [facility] RADIOLOGY Service: [place] [address] (Case [id number] COMPLETE)CHEST SINGLE(1) VIEW (RAD Detailed) CPT:18614 Proc Modifiers : PORTABLE EXAM Reason for Study: Eval volume status Clinical History: Report Status: Verified Date Reported: SEP 03, 2024 Date Verified: SEP 03, 2024 Past Due Accounts Clerk E-Sig: Report: EXAMINATION: SINGLE VIEW CHEST [...] Interpreting Staff: HUANG TAI, Radiologist Verified by urogynaecologist for HUANG TAI /HUANG WHEATLEY-MALKA [facility] Aug 29, 2024 08:[address] HEAD W/O CONT: LUIS MANUEL PERDOMO [id number] -1945 M Exm Date: AUG 29, 2024@20:28 Req Phys: FELISA COLE Loc: ED/4P-12A (Req'g Loc) Img Loc: CT SCAN Service: [place] [address] (Case [id number] COMPLETE) CT HEAD W/O CONT (CT Detailed) CPT:13071 Reason for Study: SEE CLINICAL HISTORY Clinical History: REASON FOR SEND OUT: ATTENDING PHYSICIAN NAME: New transient neurological s/s - suspected TIA HISTORY/REASON FOR EXAM: confusion Report Status: Verified Date Reported: AUG 29, 2024 Date Verified: AUG 29, 2024 Past Due Accounts Clerk E-Sig: Report: HISTORY confusion COMPARISON No [...] Staff: ABDIRAHMAN CROW, Staff Physician Verified by urogynaecologist for ABDIRAHMAN CROW /[facility] [...] Reporting Lab: [facility] [CLIA# [id number]] [address] [place] [id number] Accession [UID]: [id number] [[id number]] Received: Sep 03, 2024@14:02 Collection sample: URINE, [...] Performed By: [facility] [CLIA# [id number]] [address] [place] [id number] [facility] Sep 02, 2024 06:00 PM LR MICROBIOLOGY RE [place]: Reporting Lab: [facility] [facility] [CLIA# [id number]] [address] [place], [place] [id number] Accession [UID]: [id number] [[id number]] Received: Sep 02, 2024@18:07 Collection sample: BLD CULTURE BOTTLES Collection date: Sep 02, 2024 18:00 Site/Specimen: BLOOD Provider: FRANCK TURNER Comment on specimen: L HAND Test(s) ordered: CULTURE, BLOOD................ completed: Sep 08, 2024 * BACTERIOLOGY FINAL REPORT => Sep 08, 2024 08:25 TECH CODE: [id number] Bacteriology Remark(s): Blood culture status=NO GROWTH (unless notified otherwise) 09/03/2024 AEROBIC: NO GROWTH ANAEROBIC: NO GROWTH =--=--=--=--=--=--=--=--=--=-- =--=--=--=--=--=--=--=--=--=-- =--=--=--=--=--=-- Performing Laboratory: Bacteriology Report Performed By: [facility] [CLIA# [id number]] [address] [place] [address] MAGDY CALABRESE-Sav [facility] Aug 29, 2024 10:18 PM LR MICROBIOLOGY RE PORT: Reporting Lab: [facility] [CLIA# [id number]] [address] [place] [address] Accession [UID]: [id number] [[id number]] Received: Aug 29, 2024@22:18 Collection sample: URINE, CLEAN CATCH Collection date: Aug 29, 2024 22:18 Site/Specimen: URINE Provider: FELISA OCLE Test(s) ordered: CULTURE, URINE................ completed: Aug 31, 2024 09:51 * BACTERIOLOGY FINAL REPORT => Aug 31, 2024 09:51 TECH CODE: [id number] Bacteriology Remark(s): NO GROWTH 08/30/2024 <10,000 CFU/ML. 08/31/2024 =--=--=--=--=--=--=--=--=--=-- =--=--=--=--=--=--=--=--=--=-- =--=--=--=--=--=-- Performing Laboratory: Bacteriology Report Performed By: [facility] [IA# [id number]] [address] [place] [address] MAGDY CALABRESE-Sav [facility]
--- OUTSIDE RECORDS SUMMARY | 2024-09-03 23:35 | XMS_ITS ---
[place] DAILY HOSPITALIZATION DATA [facility] Encounter Summary Created on: September 22, 2024 LUIS MANUEL PERDOMO : 1945 Sex: Male Author Name [facility] Organization [facility] Address [address] [place] [address] Care Team Providers Care Mid Level Developer Name Role Phone YULISSA HENDERSON Primary [...] PLAN F Mar 24, 2014 PLAN F [id number] LUIS MANUEL PERDOMO PATIENT [facility] [place] [facility] PREFERRED PROVIDER ORGANIZAT ION (PPO) [facility] SLE Sep 21, 2012 [id number] LUIS MANUEL PERDOMO PATIENT [employer] ([id number]) PRESCRIPT ION WL3A Sep 21, 2012 [id number] [phone] LUIS MANUEL PERDOMO PATIENT MEDICARE (WNR) MEDICARE (M) PART B Sep 21, 2012 PART B [id number] NOEMI PERDOMO PATIENT MEDICARE (WNR) MEDICARE (M) PART A Jan 22, 2011 PART A [id number] LEANNE, NOEMI PATIENT MEDICARE PART D (WNR) MEDICARE (M) PART D Mar 24, 2014 PART D [id number] LUIS MANUEL PERDOMO PATIENT Selected Encounter This section includes the information on record at [place] for the Encounter. Date/Time Encounter Type Encounter Description Reason Pro vider Source Sep 04, 2024 03:35 AM Inpatient Visit DAILY HOSPITALIZATION DATA [facility] Encounter Template Text not used by [place] Plan of Treatment: Future Appointments (+ 6 months) and Future Tests (+/- 45 days) The Plan of Treatment section includes future care activities for the patient [facility] [place] [facility] This section includes future appointments and [...] 13, 2024 08:00 AM AMBULATORY - NONE [facility] Sep 30, 2024 01:30 PM AMBULATORY [...] of theEncounter. The data comes from all [facility] facilities. Test Date/Time Test Type Test Details Facility Name Sep 13, 2024 01:33 PM Consult Order [facility] SKILLED HOME CARE Cons Heating Fixture Tender's Choice [facility] Lab Results: +/- 30 days [...] Type Comment Sep 09, 2024 12:16 PM [facility] GLUCOSE-HAND MONITOR CAPILLARY Specimen Type: CAPILLARY Comment: Test performed by: [id number] Meter #: [id number] Ordering Provider: FRANCK TURNER Report Released Date/Time: Sep 09, 2024 12:33 PM Reporting Lab: [address] [address] Performing Lab: [address] [address] GLUCOSE-HAND MONITOR 116 mg/dL H Sep 09, 2024 06:07 AM [facility] GLUCOSE-HAND MONITOR CAPILLARY Specime n Type: CAPILLARY Comment: Test performed by: [id number] Meter #: [id number] Ordering Provider: FRANCK TURNER Report Released Date/Time: Sep 09, 2024 08:17 AM Reporting Lab: [address] [address] Performing Lab: [address] [address] GLUCOSE-HAND MONITOR 112 mg/dL H Sep 08, 2024 09:13 PM [facility] GLUCOSE-HAND MONITOR CAPILLARY Specime n Type: CAPILLARY Comment: Test performed by: [id number] Meter #: [id number] Ordering Provider: FRANCK TURNER Report Released Date/Time: Sep 08, 2024 09:31 PM Reporting Lab: [address] [address] Performing Lab: [address] [address] GLUCOSE-HAND MONITOR 107 mg/dL H Sep 08, 2024 03:49 PM [facility] GLUCOSE-HAND MONITOR CAPILLARY Specime n Type: CAPILLARY Comment: AAMIR RN notified Test performed by: [id number] Meter #: [id number] Ordering Provider: FRANCK TURNER Report Released Date/Time: Sep 08, 2024 04:33 PM Reporting Lab: [address] [address] Performing Lab: [address] [address] GLUCOSE-HAND MONITOR 162 mg/dL H Sep 08, 2024 11:43 AM [facility] GLUCOSE-HAND MONITOR CAPILLARY Specime n Type: CAPILLARY Comment: AAMIR RN notified Test performed by: [id number] Meter #: [id number] Ordering Provider: FRANCK TURNER Report Released Date/Time: Sep 08, 2024 12:03 PM Reporting Lab: [address] [address] Performing Lab: [address] [address] GLUCOSE-HAND MONITOR 133 mg/dL H Sep 08, 2024 06:13 AM [facility] GLUCOSE-HAND MONITOR CAPILLARY Specime n Type: CAPILLARY Comment: Test performed by: [id number] Meter #: [id number] Ordering Provider: FRANCK TURNER Report Released Date/Time: Sep 08, 2024 06:46 AM Reporting Lab: [address] [address] Performing Lab: [address] [address] GLUCOSE-HAND MONITOR 104 mg/dL H Sep 07, 2024 07:59 PM [facility] GLUCOSE-HAND MONITOR CAPILLARY Specime n Type: CAPILLARY Comment: Test performed by: [id number] Meter #: [id number] Ordering Provider: FRANCK TURNER Report Released Date/Time: Sep 07, 2024 09:05 PM Reporting Lab: [address] [address] Performing Lab: [address] [address] GLUCOSE-HAND MONITOR 107 mg/dL H Sep 07, 2024 04:39 PM [facility] GLUCOSE-HAND MONITOR CAPILLARY Specime n Type: CAPILLARY Comment: Test performed by: [id number] Meter #: [id number] Ordering Provider: FRANCK TURNER Report Released Date/Time: Sep 07, 2024 05:09 PM Reporting Lab: [address] [address] Performing Lab: [address] [address] GLUCOSE-HAND MONITOR 105 mg/dL H Sep 07, 2024 11:41 AM [facility] GLUCOSE-HAND MONITOR CAPILLARY Specime n Type: CAPILLARY Comment: Test performed by: [id number] Meter #: [id number] Ordering Provider: FRANCK TURNER Report Released Date/Time: Sep 07, 2024 12:41 PM Reporting Lab: [address] [address] Performing Lab: [address] [address] GLUCOSE-HAND MONITOR 144 mg/dL H Sep 07, 2024 05:56 AM [facility] GLUCOSE-HAND MONITOR CAPILLARY Specime n Type: CAPILLARY Comment: Test performed by: [id number] Meter #: [id number] Ordering Provider: FRANCK TURNER Report Released Date/Time: Sep 07, 2024 06:31 AM Reporting Lab: [address] [address] Performing Lab: [address] [address] GLUCOSE-HAND MONITOR 96 mg/dL Sep 06, 2024 08:10 PM [facility] GLUCOSE-HAND MONITOR CAPILLARY Specime n Type: CAPILLARY Comment: Test performed by: [id number] Meter #: [id number] Ordering Provider: FRANCK TURNER Report Released Date/Time: Sep 06, 2024 08:52 PM Reporting Lab: [address] [address] Performing Lab: [address] [address] GLUCOSE-HAND MONITOR 124 mg/dL H Sep 06, 2024 04:27 PM [facility] GLUCOSE-HAND MONITOR CAPILLARY Specime n Type: CAPILLARY Comment: Test performed by: [id number] Meter #: [id number] Ordering Provider: FRANCK TURNER Report Released Date/Time: Sep 06, 2024 05:15 PM Reporting Lab: [address] [address] Performing Lab: [address] [address] GLUCOSE-HAND MONITOR 107 mg/dL H Sep 06, 2024 12:12 PM [facility] GLUCOSE-HAND MONITOR CAPILLARY Specime n Type: CAPILLARY Comment: Test performed by: [id number] Meter #: [id number] Ordering Provider: FRANCK TURNER Report Released Date/Time: Sep 06, 2024 12:29 PM Reporting Lab: [address] [address] Performing Lab: [address] [address] GLUCOSE-HAND MONITOR 181 mg/dL H -Sep 06, 2024 06:13 AM [facility] GLUCOSE-HAND MONITOR CAPILLARY Specime n Type: CAPILLARY Comment: Test performed by: [id number] Meter #: [id number] Ordering Provider: FRANCK TURNER Report Released Date/Time: Sep 06, 2024 06:36 AM Reporting Lab: [address] [address] Performing Lab: [address] [address] GLUCOSE-HAND MONITOR 102 mg/dL H Sep 05, 2024 08:47 PM [facility] GLUCOSE-HAND MONITOR CAPILLARY Specime n Type: CAPILLARY Comment: Test performed by: [id number] Meter #: [id number] Ordering Provider: FRANCK TURNER Report Released Date/Time: Sep 06, 2024 02:13 AM Reporting Lab: [address] [address] Performing Lab: [address] [address] GLUCOSE-HAND MONITOR 103 mg/dL H Sep 05, 2024 04:40 PM [facility] GLUCOSE-HAND MONITOR CAPILLARY Specime n Type: CAPILLARY Comment: AAMIR RN notified Test performed by: [id number] Meter #: [id number] Ordering Provider: FRANCK TURNER Report Released Date/Time: Sep 05, 2024 05:11 PM Reporting Lab: [address] [address] Performing Lab: [address] [address] GLUCOSE-HAND MONITOR 113 mg/dL H Sep 05, 2024 12:06 PM [facility] GLUCOSE-HAND MONITOR CAPILLARY Specime n Type: CAPILLARY Comment: Test performed by: [id number] Meter #: [id number] Ordering Provider: FRANCK TURNER Report Released Date/Time: Sep 05, 2024 12:23 PM Reporting Lab: [address] [address] Performing Lab: [address] [address] GLUCOSE-HAND MONITOR 115 mg/dL H Sep 05, 2024 06:26 AM [facility] GLUCOSE-HAND MONITOR CAPILLARY Specime n Type: CAPILLARY Comment: AAMIR Correction Dose Test performed by: [id number] Meter #: [id number] Ordering Provider: FRANCK TURNER Report Released Date/Time: Sep 05, 2024 06:43 AM Reporting Lab: [address] [address] Performing Lab: [address] [address] GLUCOSE-HAND MONITOR 111 mg/dL H Sep 04, 2024 08:59 PM [facility] GLUCOSE-HAND MONITOR CAPILLARY Specime n Type: CAPILLARY Comment: AAMIR RN notified Test performed by: [id number] Meter #: [id number] Ordering Provider: FRANCK TURNER Report Released Date/Time: Sep 04, 2024 09:36 PM Reporting Lab: [address] [address] Performing Lab: [address] [address] GLUCOSE-HAND MONITOR 123 mg/dL H Sep 04, 2024 04:41 PM [facility] GLUCOSE-HAND MONITOR CAPILLARY Specime n Type: CAPILLARY Comment: AAMIR RN notified Test performed by: [id number] Meter #: [id number] Ordering Provider: FRANCK TURNER Report Released Date/Time: Sep 04, 2024 05:03 PM Reporting Lab: [address] [address] Performing Lab: [address] [address] GLUCOSE-HAND MONITOR 118 mg/dL H Sep 04, 2024 12:36 PM [facility] GLUCOSE-HAND MONITOR CAPILLARY Specime n Type: CAPILLARY Comment: AAMIR RN notified Test performed by: [id number] Meter #: [id number] Ordering Provider: FRANCK TURNER Report Released Date/Time: Sep 04, 2024 12:53 PM Reporting Lab: [address] [address] Performing Lab: [place] [address] GLUCOSE-HAND MONITOR 129 mg/dL H 71-99 Sep 04, 2024 12:03 PM [facility] RESPIRATORY VIRUS PANEL (BIOFIRE) NASOPHARYN X Specimen Type: NASOPHARYNX Comment: ~For Test: RESPIRATORY VIRUS PANEL (BIOFIRE) ~ORDER READ BACK TO: FRANCK TURNER 09/04/24@11:30 Ordering Provider: FRANCK TURNER Report Released Date/Time: Sep 04, 2024 11:33 AM Reporting Lab: [place] [phone] Performing Lab: [place] [address] ADENOVIRUS (BIOFIRE) Not Detected -Not D etected [...] -Not Detected Sep 04, 2024 06:55 AM [facility] MAGNESIUM PLASMA Specimen Type: PLASM A [...] 03, 2024 11:10 AM Reporting Lab: [place] [facility] [address] [facility] [address] Performing Lab: [place] [address] [facility] [address] MAGNESIUM 1.8 mg/dL 1.6-2.6 Sep 04, 2024 06:55 AM [facility] PANEL 1 PLASMA Specimen Type: PLASM [...] Sep 03, 2024 11:10 AM Reporting Lab: [address] [address] Performing Lab: [address] CREATININE 0.75 mg/dL 0.72-1.25 UREA NITROGEN 13 mg/dL 9-25 GLUCOSE 105 mg/dL H 74-100 SODIUM 128 mmol/L L 136-145 POTASSIUM 3.9 mmol/L 3.5-5.1 CHLORIDE 99 mmol/L 98-107 CO2 21 mmol/L L 22-29 CALCIUM 8.0 mg/dL L 8.4-10.2 ANION GAP 8 meq/L 3-19 eGFR (CKD-EPI) >90 Sep 04, 2024 06:02 AM [facility] GLUCOSE-HAND MONITOR CAPILLARY Specime n Type: CAPILLARY Comment: Test performed by: [id number] Meter #: [id number] Ordering Provider: FRANCK TURNER Report Released Date/Time: Sep 04, 2024 06:28 AM Reporting Lab: [address] Performing Lab: [address] GLUCOSE-HAND MONITOR 114 mg/dL H 71-99 Sep 03, 2024 05:19 PM [facility] GLUCOSE-HAND MONITOR CAPILLARY Specime n Type: CAPILLARY Comment: Test performed by: [id number] Meter #: [id number] Ordering Provider: FRANCK TURNER Report Released Date/Time: Sep 03, 2024 05:37 PM Reporting Lab: [address] Performing Lab: [address] [address] GLUCOSE-HAND MONITOR 124 mg/dL H 71-99 Sep 03, 2024 04:41 PM [facility] GLUCOSE-HAND MONITOR CAPILLARY Specime n Type: CAPILLARY Comment: Test performed by: [id number] Meter #: [id number] Ordering Provider: FRANCK TURNER Report Released Date/Time: Sep 03, 2024 06:09 PM Reporting Lab: [address] [address] Performing Lab: [address] [address] GLUCOSE-HAND MONITOR 112 mg/dL H 71-99 Sep 03, 2024 01:35 PM [facility] URINE LYTES URINE Specimen Type : URINE Comment: ~Altered mental status with no identifiable cause Ordering Provider: FRANCK TURNER Report Released Date/Time: Sep 02, 2024 04:44 PM Reporting Lab: [address] [address] Performing Lab: [address] [address] SODIUM 130 mmol/L POTASSIUM 47.6 mmol/L CHLORIDE 137 mmol/L Sep 03, 2024 01:35 PM [facility] CREATININE URINE Specimen Type: URINE Comment: ~Altered mental status with no identifiable cause Ordering Provider: FRANCK TURNER Report Released Date/Time: Sep 02, 2024 04:44 PM Reporting Lab: [address] [address] Performing Lab: [address] [address] CREATININE 150.9 mg/dL Sep 03, 2024 01:35 PM [facility] OSMOLALITY URINE Specimen Type: URINE Comment: ~Altered mental status with no identifiable cause Ordering Provider: FRANCK TURNER Report Released Date/Time: Sep 02, 2024 04:44 PM Reporting Lab: [address] [address] Performing Lab: [address] [address] OSMOLALITY 522 mosm/kg 38-1400 Sep 03, 2024 01:35 PM [facility] UREA NITROGEN URINE Specimen Type : URINE Comment: ~Altered mental status with no identifiable cause Ordering Provider: FRANCK TURNER Report Released Date/Time: Sep 02, 2024 04:44 PM Reporting Lab: [address] [address] Performing Lab: [address] [address] UREA NITROGEN 320 mg/dL Sep 03, 2024 01:35 PM [facility] URINALYSIS WITH REFLEX TO CULTURE URINE Specimen Type: URINE Comment: ~Altered mental status with no identifiable cause Ordering Provider: FRANCK TURNER Report Released Date/Time: Sep 02, 2024 04:44 PM Reporting Lab: [address] [address] Performing Lab: [address] [address] URINE COLOR Yellow Colorless-Yellow APPEARANCE CLOUDY H [...] H 0-28 Sep 03, 2024 11:58 AM [facility] GLUCOSE-HAND MONITOR CAPILLARY Specime n Type: CAPILLARY Comment: AAMIR RN notified Test performed by: [id number] Meter #: [id number] Ordering Provider: FRANCK TURNER Report Released Date/Time: Sep 03, 2024 12:15 PM Reporting Lab: [address] [address] Performing Lab: [address] [address] GLUCOSE-HAND MONITOR 135 mg/dL H Sep 03, 2024 07:09 AM [facility] GLUCOSE-HAND MONITOR CAPILLARY Specime n Type: CAPILLARY Comment: Test performed by: [id number] Meter #: [id number] Ordering Provider: FRANCK TURNER Report Released Date/Time: Sep 03, 2024 07:26 AM Reporting Lab: [address] [address] Performing Lab: [address] [address] GLUCOSE-HAND MONITOR 120 mg/dL H -Sep 03, 2024 07:05 AM [facility] CBC/PLT BLOOD Specimen Type: BLOOD No comment entered. Ordering Provider: FRANCK TURNER Report Released Date/Time: Sep 02, 2024 04:29 PM Reporting Lab: [address] [address] Performing Lab: [address] [address] WBC 6.9 10*3/uL 5.0-10.0 RBC 3.48 10*6/uL L 4.6-6.2 HGB 9.5 g/dL L 14.0-18.0 HCT 29.1 L 42.0-52.0 MCV 83.6 fL 80.0-94.0 MCH 27.3 pg 27.0-31.0 MCHC 32.6 g/dL 32.0-36.0 PLT 258 10*3/uL 150-450 MPV 10.3 fL 9.0-13.1 RDW 14.8 11.0-16.0 NRBC 0.0 0.0-0.0 Sep 03, 2024 07:05 AM [facility] MAGNESIUM PLASMA Specimen Type: PLASM A [...] Sep 02, 2024 04:29 PM Reporting Lab: [address] [address] Performing Lab: [address] [address] MAGNESIUM 1.7 mg/dL 1.6-2.6 Sep 03, 2024 07:05 AM [facility] PANEL 1 PLASMA Specimen Type: PLASM [...] Sep 02, 2024 04:29 PM Reporting Lab: [address] [address] Performing Lab: [address] [address] CREATININE 0.82 mg/dL 0.72-1.25 UREA NITROGEN 12 mg/dL 9-25 GLUCOSE 109 mg/dL H 74-100 SODIUM 129 mmol/L L 136-145 POTASSIUM 4.2 mmol/L 3.5-5.1 CHLORIDE 99 mmol/L 98-107 CO2 21 mmol/L L 22-29 CALCIUM 8.1 mg/dL L 8.4-10.2 ANION GAP 9 meq/L 3-19 eGFR (CKD-EPI) 90 Sep 03, 2024 07:05 AM [facility] GLYCOHEMOGLOBIN BLOOD Specimen Type: BLOOD Comment: Prediabetes: 5.7%-6.4% Diabetes: >= 6.5% [facility] guidelines for A1c interpretation: Glycemic [...] 8.73 and 9.27. Ref: https://ngsp.org/CAPdata.asp. The in-house [employer] D-100 analyzer has a historical CV <= 2%. Contact the laboratory for further performance characteristics of this assay. Ordering Provider: FRANCK TURNER Report Released Date/Time: Sep 02, 2024 04:29 PM Reporting Lab: [address] [address] Performing Lab: [place] [phone] GLYCOHEMOGLOBIN 5.6 4.4-5.6 Sep 03, 2024 07:05 AM [facility] OSMOLALITY SERUM Specimen Type: SERUM No comment entered. Ordering Provider: FRANCK TURNER Report Released Date/Time: Sep 02, 2024 04:44 PM Reporting Lab: [address] [address] Performing Lab: [address] [address] OSMOLALITY 271 mosm/kg L 280-300 Sep 02, 2024 08:15 PM [facility] GLUCOSE-HAND MONITOR CAPILLARY Specime n Type: CAPILLARY Comment: AAMIR DEXTER notified Test performed by: [id number] Meter #: [id number] Ordering Provider: FRANCK TURNER Report Released Date/Time: Sep 02, 2024 08:57 PM Reporting Lab: [address] [address] Performing Lab: [address] [address] GLUCOSE-HAND MONITOR 126 mg/dL H 71-99 Sep 02, 2024 06:10 PM [facility] MRSA SURVL NARES DNA NARES Specime [...] Sep 02, 2024 05:12 PM Reporting Lab: [address] [address] Performing Lab: [address] [address] MRSA SURVL NARES DNA Negative Negative Sep 02, 2024 05:36 PM [facility] GLUCOSE-HAND MONITOR CAPILLARY Specime n Type: CAPILLARY Comment: Test performed by: [id number] Meter #: [id number] Ordering Provider: FRANCK TURNER Report Released Date/Time: Sep 02, 2024 05:53 PM Reporting Lab: [address] [address] Performing Lab: [address] [address] GLUCOSE-HAND MONITOR 127 mg/dL H 71-99 Aug 29, 2024 10:04 PM [facility] URINALYSIS WITH REFLEX TO CULTURE URINE Specimen Type: URINE Comment: ~For Test: URINALYSIS WITH REFLEX TO CULTURE ~REORDER Ordering Provider: FELISA COLE Report Released Date/Time: Aug 29, 2024 09:36 PM Reporting Lab: [address] [address] Performing Lab: [address] [address] URINE COLOR Yellow Colorless-Yellow APPEARANCE Clear Clear [...] /[LPF] 0-28 Aug 29, 2024 08:32 PM [facility] HIGH SENSITIVITY TROPONIN [...] Aug 29, 2024 07:55 PM Reporting Lab: [address] [address] Performing Lab: [address] [address] HIGH SENSITIVITY TROPONIN I 7 4-35 Aug 29, 2024 08:32 PM [facility] CBC/PLT BLOOD Specimen Type: BLOOD No comment entered. Ordering Provider: FELISA COLE Report Released Date/Time: Aug 29, 2024 07:55 PM Reporting Lab: [address] [address] Performing Lab: [address] [address] WBC 11.2 10*3/uL H 5.0-10.0 RBC 3.97 10*6/uL L 4.6-6.2 HGB 10.9 g/dL L 14.0-18.0 HCT 33.5 L 42.0-52.0 MCV 84.4 fL 80.0-94.0 MCH 27.5 pg 27.0-31.0 MCHC 32.5 g/dL 32.0-36.0 PLT 230 10*3/uL 150-450 MPV 10.2 fL 9.0-13.1 RDW 14.6 11.0-16.0 NRBC 0.0 0.0-0.0 Aug 29, 2024 08:32 PM [facility] PANEL 5 PLASMA Specimen Type: PLASM A [...] Aug 29, 2024 07:55 PM Reporting Lab: [address] [address] Performing Lab: [address] [address] CREATININE 0.85 mg/dL 0.72-1.25 UREA NITROGEN 15 [...] 04, 2024 10:21 PM 0 [place] Sep 04, 2024 08:38 PM 99.2 F 86 /min 127/68 mm[Hg] 18 /min 93 % 0 [place] [facility] Sep 04, 2024 07:06 PM 1 [place] Sep 04, 2024 06:44 PM 2 [place] Sep 04, 2024 06:39 PM 99.9 F 76 /min 154/68 mm[Hg] 90 % [place] [facility] Advance Directives: All historical and [...] 08, 2024 ADVANCE DIRECTIVE DISCUSSION [facility] Radiology Reports: +/- 30 days [...] W & W/O: LUIS MANUEL PERDOMO FABIAN [id number] -1945 M Exm Date: SEP 06, 2024@13:40 Req Phys: FRANCK TURNER Loc: 5-MED/TEL/09-06-2024@19:09 Img Loc: [facility] Service: [place] [address] (Case [id number] COMPLETE) MRI BRAIN W & W/O (MRI Detailed) CPT:37979 Contrast Media : Gadolinium Reason for Study: SEE CLINICAL HISTORY Pharmaceutical: GADOTERIDOL 279.3MG/ML 20ML INJ, 19ml Clinical History: MRI Screening (Required): IMPLANTED DEVICE DOCUMENTATION IMPLANTED DEVICE DOCUMENTATION NOT FOUND Does the have any Cardiac Implants? None Does the Popejoy have any implanted stimulators? None Does the Popejoy have cochlear implants? No Does the Popejoy have Cerebral aneurysm clip(s)? I don't know Does the Popejoy have any shrapnel? I don't know If yes, where in your body? Please list other implants not listed above: MRI table has a weight limit of 551 lbs. Popejoy's Weight: *212 lb [96.16 kg] (09/04/2024 05:19) Is this patient claustrophobic?: No REASON FOR EXAM:MULTIPLE SCLEROSIS (indicate suspected or established) PERTINENT PATIENT HISTORY: MS c/f for flare Risk factors for GADOLINIUM NEPHROGENIC SYSTEMIC SCLEROSIS: Report Status: Verified Date Reported: SEP 06, 2024 Date Verified: SEP 06, 2024 Office Manager Executive Assistant E-Sig: Report: MRI brain without and with [...] Staff: ARCENIO LEYVA, Staff Radiologist Verified by pharmacy operations specialist for ARCENIO LEYVA /ARCENIO [facility] Sep 06, 2024 01:40 PM MRI C SPINE W & W/ O CONTRAST(FURTHER SEQUENCES): LUIS MANUEL PERDOMO [id number] -1945 M Exm Date: SEP 06, 2024@13:40 Req Phys: FRANCK TURNERISIAHFLOSav Pat Loc: 5-MED/TEL/09-07-2024@06:42 Img Loc: [facility] Service: [facility] [place] [id number] (Case [id number] COMPLETE) MRI C SPINE W & W/O CONTRAST(FURT(MRI Detailed) CPT:76508 Contrast Media : Gadolinium Reason for Study: SEE CLINICAL HISTORY Pharmaceutical: GADOTERIDOL 279.3MG/ML 20ML INJ, 19ml Clinical History: STATUS OF PLAIN FILMS:Not performed (Provide justification for MR W/O prior plain films below.) MRI for MS MRI Screening (Required): IMPLANTED DEVICE DOCUMENTATION IMPLANTED DEVICE DOCUMENTATION NOT FOUND Does the Popejoy have any Cardiac Implants? None Does the have any implanted stimulators? None Does the have cochlear implants? No Does the Popejoy have Cerebral aneurysm clip(s)? I don't know [...] 07, 2024 Date Verified: SEP 07, 2024 Office Manager Executive Assistant E-Sig: Report: EXAMINATION: MRI OF THE CERVICAL [...] Interpreting Staff: HUANG TAI, Radiologist Verified by pharmacy operations specialist for HUANG TAI /HUANG WHEATLEY-Sav [facility] Sep 03, 2024 10:45 AM CHEST SINGLE(1) EW: LUIS MANUEL PERDOMO [id number] -1945 M Exm Date: SEP 03, 2024@10:45 Req Phys: FRANCK TURNER Pat Loc: 5-MED/TEL/09-03-2024@10:56 Img Loc: [facility] RADIOLOGY Service: [place] [address] (Case [id number] COMPLETE)CHEST SINGLE(1) VIEW (RAD Detailed) CPT:73937 Proc Modifiers : PORTABLE EXAM Reason for Study: Eval volume status Clinical History: Report Status: Verified Date Reported: SEP 03, 2024 Date Verified: SEP 03, 2024 Office Manager Executive Assistant E-Sig: Report: EXAMINATION: SINGLE VIEW CHEST CLINICAL [...] Interpreting Staff: HUANG TAI, Radiologist Verified by pharmacy operations specialist for HUANG TAI /HUANG WHEATLEY-MALKA [facility] Aug 29, 2024 08:[address] HEAD W/O CONT: LUIS MANUEL PERDOMO [id number] -1945 M Exm Date: AUG 29, 2024@20:28 Req Phys: FELISA COLE Loc: ED/4P-12A (Req'g Loc) Img Loc: CT SCAN Service: [place] [address] (Case [id number] COMPLETE) CT HEAD W/O CONT (CT Detailed) CPT:66644 Reason for Study: SEE CLINICAL HISTORY Clinical History: REASON FOR SEND OUT: ATTENDING PHYSICIAN NAME: New transient neurological s/s - suspected TIA HISTORY/REASON FOR EXAM: confusion Report Status: Verified Date Reported: AUG 29, 2024 Date Verified: AUG 29, 2024 Office Manager Executive Assistant E-Sig: Report: HISTORY confusion COMPARISON No prior [...] Staff: ABDIRAHMAN CROW, Staff Physician Verified by pharmacy operations specialist for ABDIRAHMAN CROW [facility] Pathology Reports: +/- [...] PORT: Reporting Lab: [facility] [CLIA# [id number]] [address] [place] [id number] Accession [UID]: [id number] [[id number]] Received: Sep 03, 2024@14:02 Collection sample: URINE, [...] Report Performed By: [facility] [CLIA# [id number]] [address] [place] [id number] [facility] Sep 02, 2024 06:00 PM LR MICROBIOLOGY RE PORT: Reporting Lab: [facility] [CLIA# [id number]] [address] [place], [place] [id number] Accession [UID]: [id number]] Received: Sep 02, 2024@18:07 Collection sample: BLD CULTURE BOTTLES Collection date: Sep 02, 2024 18:00 Site/Specimen: BLOOD Provider: FRANCK TURNER Comment on specimen: L HAND Test(s) ordered: CULTURE, BLOOD................ completed: Sep 08, 2024 * BACTERIOLOGY FINAL REPORT => Sep 08, 2024 08:25 TECH CODE: [id number] Bacteriology Remark(s): Blood culture status=NO GROWTH (unless notified otherwise) 09/03/2024 AEROBIC: NO GROWTH ANAEROBIC: NO GROWTH =--=--=--=--=--=--=--=--=--=-- =--=--=--=--=--=--=--=--=--=-- =--=--=--=--=--=-- Performing Laboratory: Bacteriology Report Performed By: [facility] [CLIA# [id number]] [address] [place] [address] MAGDY CALABRESE-Sav [facility] Aug 29, 2024 10:18 PM LR MICROBIOLOGY RE PORT: Reporting Lab: [facility] [CLIA# [id number]] [address] [place] [address] Accession [UID]: [id number] [[id number]] Received: Aug 29, 2024@22:18 Collection sample: URINE, CLEAN CATCH Collection date: Aug 29, 2024 22:18 Site/Specimen: URINE Provider: FELISA COLE Test(s) ordered: CULTURE, URINE................ completed: Aug 31, 2024 09:51 * BACTERIOLOGY FINAL REPORT => Aug 31, 2024 09:51 TECH CODE: [id number] Bacteriology Remark(s): NO GROWTH 08/30/2024 <10,000 CFU/ML. 08/31/2024 =--=--=--=--=--=--=--=--=--=-- =--=--=--=--=--=--=--=--=--=-- =--=--=--=--=--=-- Performing Laboratory: Bacteriology Report Performed By: [facility] [IA# [id number]] [address] [place] [address] MAGDY CALABRESE-Sav [facility]
--- OUTSIDE RECORDS SUMMARY | 2024-09-04 00:13 | XMS_ITS ---
[place] DAILY HOSPITALIZATION DATA [facility] Encounter Summary Created on: September 22, 2024 LUIS MANUEL PERDOMO : 1945 Sex: Male Author Name Department of [facility] ([place] Organization Department of [facility] [place] Address [address] [place] [address] Care Team Providers Care Guest Relation Officer Name Role Phone YULISSA HENDERSON Primary Care [...] PLAN F Mar 24, 2014 PLAN F [id number] [phone] LUIS MANUEL PERDOMO PATIENT [facility] [place] BLUECARD PREFERRED PROVIDER ORGANIZAT ION (PPO) [facility] SLE Sep 21, 2012 [id number] [phone] LUIS MANUEL PERDOMO PATIENT [employer] ([id number]) PRESCRIPT ION WL3A Sep 21, 2012 [id number] LUIS MANUEL PERDOMO PATIENT MEDICARE (WNR) MEDICARE (M) PART B Sep 21, 2012 PART B [id number] [phone] NOEMI PERDOMO PATIENT MEDICARE (WNR) MEDICARE (M) PART A Jan 22, 2011 PART A [id number] LEANNE, NOEMI PATIENT MEDICARE PART D (WNR) MEDICARE (M) PART D Mar 24, 2014 PART D [id number] LUIS MANUEL PERDOMO PATIENT Selected Encounter This section includes the information on record at [place] for the Encounter. Date/Time Encounter Type Encounter Description Reason Pro vider Source Sep 04, 2024 04:13 AM Inpatient Visit DAILY HOSPITALIZATION DATA [facility] Encounter Template Text not used by [place] Plan of Treatment: Future Appointments (+ 6 months) and Future Tests (+/- 45 days) The Plan of Treatment section includes future care activities for the [facility] [place] [facility]. This section includes future appointments [...] 13, 2024 08:00 AM AMBULATORY - NONE [facility] Sep 30, 2024 01:30 PM AMBULATORY - SURGERY [place] [facility] Active, Pending, and Scheduled Orders This section includes a listing of several types of active, pending, and scheduled orders, including clinic medications orders, diagnostic test orders, procedure orders and consult orders; where the start date of the order is 45 days before the date of the Encounter or 45 days after the date of theEncounter. The data comes from all [facility] facilities. Test Date/Time Test Type Test Details Facility Name Sep 13, 2024 01:33 PM Consult Order [facility] SKILLED HOME CARE Cons Toe Closing Machine Tender's Choice [facility] Lab Results: +/- 30 days of [...] Type Comment Sep 09, 2024 12:16 PM [facility] GLUCOSE-HAND MONITOR CAPILLARY Specimen Type: CAPILLARY Comment: Test performed by: [id number] Meter #: [id number] Ordering Provider: FRANCK TURNER Report Released Date/Time: Sep 09, 2024 12:33 PM Reporting Lab: [address] [address] Performing Lab: [address] [address] GLUCOSE-HAND MONITOR 116 mg/dL H Sep 09, 2024 06:07 AM [facility] GLUCOSE-HAND MONITOR CAPILLARY Specime n Type: CAPILLARY Comment: Test performed by: [id number] Meter #: [id number] Ordering Provider: FRANCK TURNER Report Released Date/Time: Sep 09, 2024 08:17 AM Reporting Lab: [address] [address] Performing Lab: [address] [address] GLUCOSE-HAND MONITOR 112 mg/dL H Sep 08, 2024 09:13 PM [facility] GLUCOSE-HAND MONITOR CAPILLARY Specime n Type: CAPILLARY Comment: Test performed by: [id number] Meter #: [id number] Ordering Provider: FRANCK TURNER Report Released Date/Time: Sep 08, 2024 09:31 PM Reporting Lab: [address] [address] Performing Lab: [address] [address] GLUCOSE-HAND MONITOR 107 mg/dL H Sep 08, 2024 03:49 PM [facility] GLUCOSE-HAND MONITOR CAPILLARY Specime n Type: CAPILLARY Comment: AAMIR RN notified Test performed by: [id number] Meter #: [id number] Ordering Provider: FRANCK TURNER Report Released Date/Time: Sep 08, 2024 04:33 PM Reporting Lab: [address] [address] Performing Lab: [address] [address] GLUCOSE-HAND MONITOR 162 mg/dL H Sep 08, 2024 11:43 AM [facility] GLUCOSE-HAND MONITOR CAPILLARY Specime n Type: CAPILLARY Comment: AAMIR RN notified Test performed by: [id number] Meter #: [id number] Ordering Provider: FRANCK TURNER Report Released Date/Time: Sep 08, 2024 12:03 PM Reporting Lab: [address] [address] Performing Lab: [address] [address] GLUCOSE-HAND MONITOR 133 mg/dL H Sep 08, 2024 06:13 AM [facility] GLUCOSE-HAND MONITOR CAPILLARY Specime n Type: CAPILLARY Comment: Test performed by: [id number] Meter #: [id number] Ordering Provider: FRANCK TURNER Report Released Date/Time: Sep 08, 2024 06:46 AM Reporting Lab: [address] [address] Performing Lab: [address] [address] GLUCOSE-HAND MONITOR 104 mg/dL H Sep 07, 2024 07:59 PM [facility] GLUCOSE-HAND MONITOR CAPILLARY Specime n Type: CAPILLARY Comment: Test performed by: [id number] Meter #: [id number] Ordering Provider: FRANCK TURNER Report Released Date/Time: Sep 07, 2024 09:05 PM Reporting Lab: [address] [address] Performing Lab: [address] [address] GLUCOSE-HAND MONITOR 107 mg/dL H Sep 07, 2024 04:39 PM [facility] GLUCOSE-HAND MONITOR CAPILLARY Specime n Type: CAPILLARY Comment: Test performed by: [id number] Meter #: [id number] Ordering Provider: FRANCK TURNER Report Released Date/Time: Sep 07, 2024 05:09 PM Reporting Lab: [address] [address] Performing Lab: [address] [address] GLUCOSE-HAND MONITOR 105 mg/dL H Sep 07, 2024 11:41 AM [facility] GLUCOSE-HAND MONITOR CAPILLARY Specime n Type: CAPILLARY Comment: Test performed by: [id number] Meter #: [id number] Ordering Provider: FRANCK TURNER Report Released Date/Time: Sep 07, 2024 12:41 PM Reporting Lab: [address] [address] Performing Lab: [address] [address] GLUCOSE-HAND MONITOR 144 mg/dL H Sep 07, 2024 05:56 AM [facility] GLUCOSE-HAND MONITOR CAPILLARY Specime n Type: CAPILLARY Comment: Test performed by: [id number] Meter #: [id number] Ordering Provider: FRANCK TURNER Report Released Date/Time: Sep 07, 2024 06:31 AM Reporting Lab: [address] [address] Performing Lab: [address] [address] GLUCOSE-HAND MONITOR 96 mg/dL Sep 06, 2024 08:10 PM [facility] GLUCOSE-HAND MONITOR CAPILLARY Specime n Type: CAPILLARY Comment: Test performed by: [id number] Meter #: [id number] Ordering Provider: FRANCK TURNER Report Released Date/Time: Sep 06, 2024 08:52 PM Reporting Lab: [address] [address] Performing Lab: [address] [address] GLUCOSE-HAND MONITOR 124 mg/dL H Sep 06, 2024 04:27 PM [facility] GLUCOSE-HAND MONITOR CAPILLARY Specime n Type: CAPILLARY Comment: Test performed by: [id number] Meter #: [id number] Ordering Provider: FRANCK TURNER Report Released Date/Time: Sep 06, 2024 05:15 PM Reporting Lab: [address] [address] Performing Lab: [address] [address] GLUCOSE-HAND MONITOR 107 mg/dL H Sep 06, 2024 12:12 PM [facility] GLUCOSE-HAND MONITOR CAPILLARY Specime n Type: CAPILLARY Comment: Test performed by: [id number] Meter #: [id number] Ordering Provider: FRANCK TURNER Report Released Date/Time: Sep 06, 2024 12:29 PM Reporting Lab: [address] [address] Performing Lab: [address] [address] GLUCOSE-HAND MONITOR 181 mg/dL H -Sep 06, 2024 06:13 AM [facility] GLUCOSE-HAND MONITOR CAPILLARY Specime n Type: CAPILLARY Comment: Test performed by: [id number] Meter #: [id number] Ordering Provider: FRANCK TURNER Report Released Date/Time: Sep 06, 2024 06:36 AM Reporting Lab: [address] [address] Performing Lab: [address] [address] GLUCOSE-HAND MONITOR 102 mg/dL H Sep 05, 2024 08:47 PM [facility] GLUCOSE-HAND MONITOR CAPILLARY Specime n Type: CAPILLARY Comment: Test performed by: [id number] Meter #: [id number] Ordering Provider: FRANCK TURNER Report Released Date/Time: Sep 06, 2024 02:13 AM Reporting Lab: [address] [address] Performing Lab: [address] [address] GLUCOSE-HAND MONITOR 103 mg/dL H Sep 05, 2024 04:40 PM [facility] GLUCOSE-HAND MONITOR CAPILLARY Specime n Type: CAPILLARY Comment: AAMIR RN notified Test performed by: [id number] Meter #: [id number] Ordering Provider: FRANCK TURNER Report Released Date/Time: Sep 05, 2024 05:11 PM Reporting Lab: [address] [address] Performing Lab: [address] [address] GLUCOSE-HAND MONITOR 113 mg/dL H Sep 05, 2024 12:06 PM [facility] GLUCOSE-HAND MONITOR CAPILLARY Specime n Type: CAPILLARY Comment: Test performed by: [id number] Meter #: [id number] Ordering Provider: FRANCK TURNER Report Released Date/Time: Sep 05, 2024 12:23 PM Reporting Lab: [address] [address] Performing Lab: [address] [address] GLUCOSE-HAND MONITOR 115 mg/dL H Sep 05, 2024 06:26 AM [facility] GLUCOSE-HAND MONITOR CAPILLARY Specime n Type: CAPILLARY Comment: AAMIR Correction Dose Test performed by: [id number] Meter #: [id number] Ordering Provider: FRANCK TURNER Report Released Date/Time: Sep 05, 2024 06:43 AM Reporting Lab: [address] [address] Performing Lab: [address] [address] GLUCOSE-HAND MONITOR 111 mg/dL H Sep 04, 2024 08:59 PM [facility] GLUCOSE-HAND MONITOR CAPILLARY Specime n Type: CAPILLARY Comment: AAMIR RN notified Test performed by: [id number] Meter #: [id number] Ordering Provider: FRANCK TURNER Report Released Date/Time: Sep 04, 2024 09:36 PM Reporting Lab: [address] [address] Performing Lab: [address] [address] GLUCOSE-HAND MONITOR 123 mg/dL H Sep 04, 2024 04:41 PM [facility] GLUCOSE-HAND MONITOR CAPILLARY Specime n Type: CAPILLARY Comment: AAMIR RN notified Test performed by: [id number] Meter #: [id number] Ordering Provider: FRANCK TURNER Report Released Date/Time: Sep 04, 2024 05:03 PM Reporting Lab: [address] [address] Performing Lab: [address] [address] GLUCOSE-HAND MONITOR 118 mg/dL H Sep 04, 2024 12:36 PM [facility] GLUCOSE-HAND MONITOR CAPILLARY Specime n Type: CAPILLARY Comment: AAMIR RN notified Test performed by: [id number] Meter #: [id number] Ordering Provider: FRANCK TURNER Report Released Date/Time: Sep 04, 2024 12:53 PM Reporting Lab: [address] [address] Performing Lab: [place] [address] GLUCOSE-HAND MONITOR 129 mg/dL H 71-99 Sep 04, 2024 12:03 PM [facility] RESPIRATORY VIRUS PANEL (BIOFIRE) NASOPHARYN X Specimen Type: NASOPHARYNX Comment: ~For Test: RESPIRATORY VIRUS PANEL (BIOFIRE) ~ORDER READ BACK TO: FRANCK TURNER 09/04/24@11:30 Ordering Provider: FRANCK TURNER Report Released Date/Time: Sep 04, 2024 11:33 AM Reporting Lab: [place] [phone] Performing Lab: [place] [phone] ADENOVIRUS (BIOFIRE) Not Detected -Not D etected [...] Detected Sep 04, 2024 06:55 AM [facility] MAGNESIUM PLASMA Specimen Type: PLASM A [...] Reporting Lab: [place] [facility] [address] [facility] [address] Performing Lab: [place] [id number] [facility] [address] MAGNESIUM 1.8 mg/dL 1.6-2.6 Sep 04, 2024 06:55 AM [facility] PANEL 1 PLASMA Specimen Type: PLASM [...] Sep 03, 2024 11:10 AM Reporting Lab: [address] [address] Performing Lab: [address] CREATININE 0.75 mg/dL 0.72-1.25 UREA NITROGEN 13 mg/dL 9-25 GLUCOSE 105 mg/dL H 74-100 SODIUM 128 mmol/L L 136-145 POTASSIUM 3.9 mmol/L 3.5-5.1 CHLORIDE 99 mmol/L 98-107 CO2 21 mmol/L L 22-29 CALCIUM 8.0 mg/dL L 8.4-10.2 ANION GAP 8 meq/L 3-19 eGFR (CKD-EPI) >90 Sep 04, 2024 06:02 AM [facility] GLUCOSE-HAND MONITOR CAPILLARY Specime n Type: CAPILLARY Comment: Test performed by: [id number] Meter #: [id number] Ordering Provider: FRANCK TURNER Report Released Date/Time: Sep 04, 2024 06:28 AM Reporting Lab: [address] Performing Lab: [address] GLUCOSE-HAND MONITOR 114 mg/dL H 71-99 Sep 03, 2024 05:19 PM [facility] GLUCOSE-HAND MONITOR CAPILLARY Specime n Type: CAPILLARY Comment: Test performed by: [id number] Meter #: [id number] Ordering Provider: FRANCK TURNER Report Released Date/Time: Sep 03, 2024 05:37 PM Reporting Lab: [address] Performing Lab: [address] [address] GLUCOSE-HAND MONITOR 124 mg/dL H 71-99 Sep 03, 2024 04:41 PM [facility] GLUCOSE-HAND MONITOR CAPILLARY Specime n Type: CAPILLARY Comment: Test performed by: [id number] Meter #: [id number] Ordering Provider: FRANCK TURNER Report Released Date/Time: Sep 03, 2024 06:09 PM Reporting Lab: [address] [address] Performing Lab: [address] [address] GLUCOSE-HAND MONITOR 112 mg/dL H 71-99 Sep 03, 2024 01:35 PM [facility] URINE LYTES URINE Specimen Type : URINE Comment: ~Altered mental status with no identifiable cause Ordering Provider: FRANCK TURNER Report Released Date/Time: Sep 02, 2024 04:44 PM Reporting Lab: [address] [address] Performing Lab: [address] [address] SODIUM 130 mmol/L POTASSIUM 47.6 mmol/L CHLORIDE 137 mmol/L Sep 03, 2024 01:35 PM [facility] CREATININE URINE Specimen Type: URINE Comment: ~Altered mental status with no identifiable cause Ordering Provider: FRANCK TURNER Report Released Date/Time: Sep 02, 2024 04:44 PM Reporting Lab: [address] [address] Performing Lab: [address] [address] CREATININE 150.9 mg/dL Sep 03, 2024 01:35 PM [facility] OSMOLALITY URINE Specimen Type: URINE Comment: ~Altered mental status with no identifiable cause Ordering Provider: FRANCK TURNER Report Released Date/Time: Sep 02, 2024 04:44 PM Reporting Lab: [address] [address] Performing Lab: [address] [address] OSMOLALITY 522 mosm/kg 38-1400 Sep 03, 2024 01:35 PM [facility] UREA NITROGEN URINE Specimen Type : URINE Comment: ~Altered mental status with no identifiable cause Ordering Provider: FRANCK TURNER Report Released Date/Time: Sep 02, 2024 04:44 PM Reporting Lab: [address] [address] Performing Lab: [address] [address] UREA NITROGEN 320 mg/dL Sep 03, 2024 01:35 PM [facility] URINALYSIS WITH REFLEX TO CULTURE URINE Specimen Type: URINE Comment: ~Altered mental status with no identifiable cause Ordering Provider: FRANCK TURNER Report Released Date/Time: Sep 02, 2024 04:44 PM Reporting Lab: [address] [address] Performing Lab: [address] [address] URINE COLOR Yellow Colorless-Yellow APPEARANCE CLOUDY H [...] H 0-28 Sep 03, 2024 11:58 AM [facility] GLUCOSE-HAND MONITOR CAPILLARY Specime n Type: CAPILLARY Comment: AAMIR RN notified Test performed by: [id number] Meter #: [id number] Ordering Provider: FRANCK TURNER Report Released Date/Time: Sep 03, 2024 12:15 PM Reporting Lab: [address] [address] Performing Lab: [address] [address] GLUCOSE-HAND MONITOR 135 mg/dL H Sep 03, 2024 07:09 AM [facility] GLUCOSE-HAND MONITOR CAPILLARY Specime n Type: CAPILLARY Comment: Test performed by: [id number] Meter #: [id number] Ordering Provider: FRANCK TURNER Report Released Date/Time: Sep 03, 2024 07:26 AM Reporting Lab: [address] [address] Performing Lab: [address] [address] GLUCOSE-HAND MONITOR 120 mg/dL H -Sep 03, 2024 07:05 AM [facility] PANEL 1 PLASMA Specimen Type: PLASM [...] 02, 2024 04:29 PM Reporting Lab: [address] [address] Performing Lab: [address] [address] CREATININE 0.82 mg/dL 0.72-1.25 UREA NITROGEN 12 mg/dL 9-25 GLUCOSE 109 mg/dL H 74-100 SODIUM 129 mmol/L L 136-145 POTASSIUM 4.2 mmol/L 3.5-5.1 CHLORIDE 99 mmol/L 98-107 CO2 21 mmol/L L 22-29 CALCIUM 8.1 mg/dL L 8.4-10.2 ANION GAP 9 meq/L 3-19 eGFR (CKD-EPI) 90 Sep 03, 2024 07:05 AM [facility] CBC/PLT BLOOD Specimen Type: BLOOD No comment entered. Ordering Provider: FRANCK TURNER Report Released Date/Time: Sep 02, 2024 04:29 PM Reporting Lab: [address] [address] Performing Lab: [address] [address] WBC 6.9 10*3/uL 5.0-10.0 RBC 3.48 10*6/uL L 4.6-6.2 HGB 9.5 g/dL L 14.0-18.0 HCT 29.1 L 42.0-52.0 MCV 83.6 fL 80.0-94.0 MCH 27.3 pg 27.0-31.0 MCHC 32.6 g/dL 32.0-36.0 PLT 258 10*3/uL 150-450 MPV 10.3 fL 9.0-13.1 RDW 14.8 11.0-16.0 NRBC 0.0 0.0-0.0 Sep 03, 2024 07:05 AM [facility] MAGNESIUM PLASMA Specimen Type: PLASM A [...] 02, 2024 04:29 PM Reporting Lab: [address] [address] Performing Lab: [address] [address] MAGNESIUM 1.7 mg/dL 1.6-2.6 Sep 03, 2024 07:05 AM [facility] GLYCOHEMOGLOBIN BLOOD Specimen Type: BLOOD Comment: Prediabetes: 5.7%-6.4% Diabetes: >= 6.5% [place]-DoD guidelines for A1c interpretation: Glycemic control targets [...] 8.73 and 9.27. Ref: https://ngsp.org/CAPdata.asp. The in-house Vigoda-BarkBox D-100 analyzer has a historical CV <= 2%. Contact the laboratory for further performance characteristics of this assay. Ordering Provider: FRANCK TURNER Report Released Date/Time: Sep 02, 2024 04:29 PM Reporting Lab: [address] [address] Performing Lab: [place] [phone] GLYCOHEMOGLOBIN 5.6 4.4-5.6 Sep 03, 2024 07:05 AM [facility] OSMOLALITY SERUM Specimen Type: SERUM No comment entered. Ordering Provider: FRANCK TURNER Report Released Date/Time: Sep 02, 2024 04:44 PM Reporting Lab: [address] [address] Performing Lab: [address] [address] OSMOLALITY 271 mosm/kg L 280-300 Sep 02, 2024 08:15 PM [facility] GLUCOSE-HAND MONITOR CAPILLARY Specime n Type: CAPILLARY Comment: AAMIR DEXTER notified Test performed by: [id number] Meter #: [id number] Ordering Provider: FRANCK TURNER Report Released Date/Time: Sep 02, 2024 08:57 PM Reporting Lab: [address] [address] Performing Lab: [address] [address] GLUCOSE-HAND MONITOR 126 mg/dL H 71-99 Sep 02, 2024 06:10 PM [facility] MRSA SURVL NARES DNA NARES Specime [...] 02, 2024 05:12 PM Reporting Lab: [address] [address] Performing Lab: [address] [address] MRSA SURVL NARES DNA Negative Negative Sep 02, 2024 05:36 PM [facility] GLUCOSE-HAND MONITOR CAPILLARY Specime n Type: CAPILLARY Comment: Test performed by: [id number] Meter #: [id number] Ordering Provider: FRANCK TURNER Report Released Date/Time: Sep 02, 2024 05:53 PM Reporting Lab: [address] [address] Performing Lab: [address] [address] GLUCOSE-HAND MONITOR 127 mg/dL H 71-99 Aug 29, 2024 10:04 PM [facility] URINALYSIS WITH REFLEX TO CULTURE URINE Specimen Type: URINE Comment: ~For Test: URINALYSIS WITH REFLEX TO CULTURE ~REORDER Ordering Provider: FELISA COLE Report Released Date/Time: Aug 29, 2024 09:36 PM Reporting Lab: [address] [address] Performing Lab: [address] [address] URINE COLOR Yellow Colorless-Yellow APPEARANCE Clear Clear [...] /[LPF] 0-28 Aug 29, 2024 08:32 [facility] HIGH SENSITIVITY TROPONIN I PLASMA Specimen Ty [...] 29, 2024 07:55 PM Reporting Lab: [address] [address] Performing Lab: [address] [address] HIGH SENSITIVITY TROPONIN I 7 4-35 Aug 29, 2024 08:32 PM [facility] CBC/PLT BLOOD Specimen Type: BLOOD No comment entered. Ordering Provider: FELISA COLE Report Released Date/Time: Aug 29, 2024 07:55 PM Reporting Lab: [address] [address] Performing Lab: [address] [address] WBC 11.2 10*3/uL H 5.0-10.0 RBC 3.97 10*6/uL L 4.6-6.2 HGB 10.9 g/dL L 14.0-18.0 HCT 33.5 L 42.0-52.0 MCV 84.4 fL 80.0-94.0 MCH 27.5 pg 27.0-31.0 MCHC 32.5 g/dL 32.0-36.0 PLT 230 10*3/uL 150-450 MPV 10.2 fL 9.0-13.1 RDW 14.6 11.0-16.0 NRBC 0.0 0.0-0.0 Aug 29, 2024 08:32 PM [facility]ASMA Specimen Type: PLASM A [...] 29, 2024 07:55 PM Reporting Lab: [address] [address] Performing Lab: [address] [address] CREATININE 0.85 mg/dL 0.72-1.25 UREA NITROGEN 15 [...] 04, 2024 10:21 PM 0 [place] [facility] Sep 04, 2024 08:38 PM 99.2 F 86 /min 127/68 mm[Hg] 18 /min 93 % 0 [place] [facility] Sep 04, 2024 07:06 PM 1 [place] [facility] Sep 04, 2024 06:44 PM 2 [place] [facility] Sep 04, 2024 06:39 PM 99.9 F 76 /min 154/68 mm[Hg] 90 % [place] [facility] Advance Directives: [...] 08, 2024 ADVANCE DIRECTIVE DISCUSSION [facility] Radiology Reports: +/- 30 days [...] W & W/O: LUIS MANUEL PERDOMO FABIAN [id number] -1945 M Exm Date: SEP 06, 2024@13:40 Req Phys: FRANCK TURNER Loc: 5-MED/TEL/09-06-2024@19:09 Img Loc: [facility] Service: [place] [address] (Case [id number] COMPLETE) MRI BRAIN W & W/O (MRI Detailed) CPT:40776 Contrast Media : Gadolinium Reason for Study: SEE CLINICAL HISTORY Pharmaceutical: GADOTERIDOL 279.3MG/ML 20ML INJ, 19ml Clinical History: MRI Screening (Required): IMPLANTED DEVICE DOCUMENTATION IMPLANTED DEVICE DOCUMENTATION NOT FOUND Does the have any Cardiac Implants? None Does the [place] have any implanted stimulators? None Does the [place] have cochlear implants? No Does the [place] have Cerebral aneurysm clip(s)? I don't know Does the [place] have any shrapnel? I don't know If yes, where in your body? Please list other implants not listed above: MRI table has a weight limit of 551 lbs. [place]'s Weight: *212 lb [96.16 kg] (09/04/2024 05:19) Is this patient claustrophobic?: No REASON FOR EXAM:MULTIPLE SCLEROSIS (indicate suspected or established) PERTINENT PATIENT HISTORY: MS c/f for flare Risk factors for GADOLINIUM NEPHROGENIC SYSTEMIC SCLEROSIS: Report Status: Verified Date Reported: SEP 06, 2024 Date Verified: SEP 06, 2024 Java Security Engineer E-Sig: Report: MRI brain without and [...] Staff: ARCENIO LEYVA, Staff Radiologist Verified by senior sustainability advisor for ARCENIO LEYVA /ARCENIO [facility] Sep 06, 2024 01:40 PM MRI C SPINE W & W/ O CONTRAST(FURTHER SEQUENCES): LUIS MANUEL PERDOMO [id number] -1945 M Exm Date: SEP 06, 2024@13:40 Req Phys: FRANCK TURNERISIAHFLOSav Pat Loc: 5-MED/TEL/09-07-2024@06:42 Img Loc: [facility] Service: MEDICAL SERVICE [place] [id number] (Case [id number] COMPLETE) MRI C SPINE W & W/O CONTRAST(FURT(MRI Detailed) CPT:40781 Contrast Media : Gadolinium Reason for Study: SEE CLINICAL HISTORY Pharmaceutical: GADOTERIDOL 279.3MG/ML 20ML INJ, 19ml Clinical History: STATUS OF PLAIN FILMS:Not performed (Provide justification for MR W/O prior plain films below.) MRI for MS MRI Screening (Required): IMPLANTED DEVICE DOCUMENTATION IMPLANTED DEVICE DOCUMENTATION NOT FOUND Does the [place] have any Cardiac Implants? None Does the have any implanted stimulators? None Does the have cochlear implants? No Does the [place] have Cerebral aneurysm clip(s)? I don't know [...] 07, 2024 Date Verified: SEP 07, 2024 Java Security Engineer E-Sig: Report: EXAMINATION: MRI OF THE [...] Interpreting Staff: HUANG TAI, Radiologist Verified by senior sustainability advisor for HUNAG TAI /HUANG WHEATLEY-Sav [facility] Sep 03, 2024 10:45 AM CHEST SINGLE(1) EW: LUIS MANUEL PERDOMO [id number] -1945 M Exm Date: SEP 03, 2024@10:45 Req Phys: FRANCK TURNER Pat Loc: 5-MED/TEL/09-03-2024@10:56 Img Loc: [facility] RADIOLOGY Service: [place] [address] (Case [id number] COMPLETE)CHEST SINGLE(1) VIEW (RAD Detailed) CPT:92338 Proc Modifiers : PORTABLE EXAM Reason for Study: Eval volume status Clinical History: Report Status: Verified Date Reported: SEP 03, 2024 Date Verified: SEP 03, 2024 Java Security Engineer E-Sig: Report: EXAMINATION: SINGLE VIEW CHEST [...] Interpreting Staff: HUANG TAI, Radiologist Verified by senior sustainability advisor for HUANG TAI /HUANG WHEATLEY-MALKA [facility] Aug 29, 2024 08:[address] HEAD W/O CONT: LUIS MANUEL PERDOMO [id number] -1945 M Exm Date: AUG 29, 2024@20:28 Req Phys: FELISA COLE Loc: ED/4P-12A (Req'g Loc) Img Loc: CT SCAN Service: [place] [address] (Case [id number] COMPLETE) CT HEAD W/O CONT (CT Detailed) CPT:53714 Reason for Study: SEE CLINICAL HISTORY Clinical History: REASON FOR SEND OUT: ATTENDING PHYSICIAN NAME: New transient neurological s/s - suspected TIA HISTORY/REASON FOR EXAM: confusion Report Status: Verified Date Reported: AUG 29, 2024 Date Verified: AUG 29, 2024 Java Security Engineer E-Sig: Report: HISTORY confusion COMPARISON No [...] Staff: ABDIRAHMAN CROW, Staff Physician Verified by senior sustainability advisor for ABDIRAHMAN CROW /[facility] Pathology Reports: +/- 30 [...] PM LR MICROBIOLOGY RE PORT: Reporting Lab: [facility] [CLIA# [id number]] [address] [place] [id number] Accession [UID]: [id number] [[id number]] Received: Sep 03, 2024@14:02 Collection sample: URINE, [...] =--=--=--=--=--=-- Performing Laboratory: Bacteriology Report Performed By: [facility] [CLIA# [id number]] [address] [place] [id number] [facility] Sep 02, 2024 06:00 PM LR MICROBIOLOGY RE PORT: Reporting Lab: [facility] [CLIA# [id number]] [address] [place], [place] [id number] Accession [UID]: [id number] [[id number]] Received: Sep 02, 2024@18:07 Collection sample: BLD CULTURE BOTTLES Collection date: Sep 02, 2024 18:00 Site/Specimen: BLOOD Provider: FRANCK TURNER Comment on specimen: L HAND Test(s) ordered: CULTURE, BLOOD................ completed: Sep 08, 2024 * BACTERIOLOGY FINAL REPORT => Sep 08, 2024 08:25 TECH CODE: [id number] Bacteriology Remark(s): Blood culture status=NO GROWTH (unless notified otherwise) 09/03/2024 AEROBIC: NO GROWTH ANAEROBIC: NO GROWTH =--=--=--=--=--=--=--=--=--=-- =--=--=--=--=--=--=--=--=--=-- =--=--=--=--=--=-- Performing Laboratory: Bacteriology Report Performed By: [facility] [CLIA# [id number]] [address] [place] [address] MAGDY CALABRESE-Sav [facility] Aug 29, 2024 10:18 PM LR MICROBIOLOGY RE PORT: Reporting Lab: [facility] [CLIA# [id number]] [address] [place] [address] Accession [UID]: [id number] [[id number]] Received: Aug 29, 2024@22:18 Collection sample: URINE, CLEAN CATCH Collection date: Aug 29, 2024 22:18 Site/Specimen: URINE Provider: FELISA COLE Test(s) ordered: CULTURE, URINE................ completed: Aug 31, 2024 09:51 * BACTERIOLOGY FINAL REPORT => Aug 31, 2024 09:51 TECH CODE: [id number] Bacteriology Remark(s): NO GROWTH 08/30/2024 <10,000 CFU/ML. 08/31/2024 =--=--=--=--=--=--=--=--=--=-- =--=--=--=--=--=--=--=--=--=-- =--=--=--=--=--=-- Performing Laboratory: Bacteriology Report Performed By: [facility] [IA# [id number]] [address] [place] [address] MAGDY CALABRESE-Sav [facility]
--- OUTSIDE RECORDS SUMMARY | 2024-09-04 05:09 | XMS_ITS ---
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 Name Role Phone YULISSA HENDERSON Primary [...] PLAN F Mar 24, 2014 PLAN F [id number] LUIS MANUEL PERDOMO PATIENT [facility] [place] [facility] PREFERRED PROVIDER ORGANIZAT ION (PPO) [facility] SLE Sep 21, 2012 [id number] [phone] LUIS MANUEL PERDOMO PATIENT [facility] ([id number]) PRESCRIPT ION WL3A Sep 21, 2012 [id number] LUIS MANUEL PERDOMO PATIENT MEDICARE (WNR) MEDICARE (M) PART B Sep 21, 2012 PART B [id number] NOEMI PERDOMO PATIENT MEDICARE (WNR) MEDICARE (M) PART A Jan 22, 2011 PART A [id number] LEANNE, NOEMI PATIENT MEDICARE PART D (WNR) MEDICARE (M) PART D Mar 24, 2014 PART D [id number] LUIS MANUEL PERDOMO PATIENT Selected Encounter This section includes the information on record at [place] for the Encounter. Date/Time Encounter Type Encounter Description Reason Pro vider Source Sep 04, 2024 09:09 AM Inpatient Visit DAILY HOSPITALIZATION DATA [facility] Encounter Template Text not used by [place] Plan of Treatment: Future Appointments (+ 6 months) and Future Tests (+/- 45 days) The Plan of Treatment section includes future care activities for the patient from [facility] [place] [facility] This section includes future appointments and future orders which are active, pending or scheduled. Future Appointments This section includes appointments that were scheduled to occur 6 months from the date of the Encounter, up to a maximum of 20 appointments. The data comes from all [place] treatment facilities. Appointment Date/Time Appointment Type Appointme nt Facility Name Sep 13, 2024 08:00 AM AMBULATORY - NONE [facility] Sep 30, 2024 01:30 PM AMBULATORY - SURGERY [facility] Active, Pending, and Scheduled Orders This section includes a listing of several types of active, pending, and scheduled orders, including clinic medications orders, diagnostic test orders, procedure orders and consult orders; where the start date of the order is 45 days before the date of the Encounter or 45 days after the date of theEncounter. The data comes from all [facility] facilities. Test Date/Time Test Type Test Details Facility Name Sep 13, 2024 01:33 PM Consult Order [facility] Cons Orthotic/Prosthetic Clinician's Choice [facility] Lab Results: +/- 30 days of the encounter This section includes the Chemistry and Hematology Lab Results on record with [place] for the patient. Radiology Reports and Pathology Reports are provided separately, in subsequent sections. Lab Results This section contains the Chemistry/Hematology Results that were resulted 30 days before or 30 daysafter the date of the Encounter. Date/Time Source Result Type Result - Unit Interpretation Reference Range Specimen Type Comment Sep 09, 2024 12:16 PM [facility] GLUCOSE-HAND MONITOR CAPILLARY Specimen Type: CAPILLARY Comment: Test performed by: [id number] Meter #: [id number] Ordering Provider: FRANCK TURNER Report Released Date/Time: Sep 09, 2024 12:33 PM Reporting Lab: [address] [address] Performing Lab: [address] [address] GLUCOSE-HAND MONITOR 116 mg/dL H Sep 09, 2024 06:07 AM [facility] GLUCOSE-HAND MONITOR CAPILLARY Specime n Type: CAPILLARY Comment: Test performed by: [id number] Meter #: [id number] Ordering Provider: FRANCK TURNER Report Released Date/Time: Sep 09, 2024 08:17 AM Reporting Lab: [address] [address] Performing Lab: [address] [address] GLUCOSE-HAND MONITOR 112 mg/dL H Sep 08, 2024 09:13 PM [facility] GLUCOSE-HAND MONITOR CAPILLARY Specime n Type: CAPILLARY Comment: Test performed by: [id number] Meter #: [id number] Ordering Provider: FRANCK TURNER Report Released Date/Time: Sep 08, 2024 09:31 PM Reporting Lab: [address] [address] Performing Lab: [address] [address] GLUCOSE-HAND MONITOR 107 mg/dL H Sep 08, 2024 03:49 PM [facility] GLUCOSE-HAND MONITOR CAPILLARY Specime n Type: CAPILLARY Comment: AAMIR RN notified Test performed by: [id number] Meter #: [id number] Ordering Provider: FRANCK TURNER Report Released Date/Time: Sep 08, 2024 04:33 PM Reporting Lab: [address] [address] Performing Lab: [address] [address] GLUCOSE-HAND MONITOR 162 mg/dL H Sep 08, 2024 11:43 AM [facility] GLUCOSE-HAND MONITOR CAPILLARY Specime n Type: CAPILLARY Comment: AAMIR RN notified Test performed by: [id number] Meter #: [id number] Ordering Provider: FRANCK TURNER Report Released Date/Time: Sep 08, 2024 12:03 PM Reporting Lab: [address] [address] Performing Lab: [address] [address] GLUCOSE-HAND MONITOR 133 mg/dL H Sep 08, 2024 06:13 AM [facility] GLUCOSE-HAND MONITOR CAPILLARY Specime n Type: CAPILLARY Comment: Test performed by: [id number] Meter #: [id number] Ordering Provider: FRANCK TURNER Report Released Date/Time: Sep 08, 2024 06:46 AM Reporting Lab: [address] [address] Performing Lab: [address] [address] GLUCOSE-HAND MONITOR 104 mg/dL H Sep 07, 2024 07:59 PM [facility] GLUCOSE-HAND MONITOR CAPILLARY Specime n Type: CAPILLARY Comment: Test performed by: [id number] Meter #: [id number] Ordering Provider: FRANCK TURNER Report Released Date/Time: Sep 07, 2024 09:05 PM Reporting Lab: [address] [address] Performing Lab: [address] [address] GLUCOSE-HAND MONITOR 107 mg/dL H Sep 07, 2024 04:39 PM [facility] GLUCOSE-HAND MONITOR CAPILLARY Specime n Type: CAPILLARY Comment: Test performed by: [id number] Meter #: [id number] Ordering Provider: FRANCK TURNER Report Released Date/Time: Sep 07, 2024 05:09 PM Reporting Lab: [address] [address] Performing Lab: [address] [address] GLUCOSE-HAND MONITOR 105 mg/dL H Sep 07, 2024 11:41 AM [facility] GLUCOSE-HAND MONITOR CAPILLARY Specime n Type: CAPILLARY Comment: Test performed by: [id number] Meter #: [id number] Ordering Provider: FRANCK TURNER Report Released Date/Time: Sep 07, 2024 12:41 PM Reporting Lab: [address] [address] Performing Lab: [address] [address] GLUCOSE-HAND MONITOR 144 mg/dL H Sep 07, 2024 05:56 AM [facility] GLUCOSE-HAND MONITOR CAPILLARY Specime n Type: CAPILLARY Comment: Test performed by: [id number] Meter #: [id number] Ordering Provider: FRANCK TURNER Report Released Date/Time: Sep 07, 2024 06:31 AM Reporting Lab: [address] [address] Performing Lab: [address] [address] GLUCOSE-HAND MONITOR 96 mg/dL Sep 06, 2024 08:10 PM [facility] GLUCOSE-HAND MONITOR CAPILLARY Specime n Type: CAPILLARY Comment: Test performed by: [id number] Meter #: [id number] Ordering Provider: FRANCK TURNER Report Released Date/Time: Sep 06, 2024 08:52 PM Reporting Lab: [address] [address] Performing Lab: [address] [address] GLUCOSE-HAND MONITOR 124 mg/dL H Sep 06, 2024 04:27 PM [facility] GLUCOSE-HAND MONITOR CAPILLARY Specime n Type: CAPILLARY Comment: Test performed by: [id number] Meter #: [id number] Ordering Provider: FRANCK TURNER Report Released Date/Time: Sep 06, 2024 05:15 PM Reporting Lab: [address] [address] Performing Lab: [address] [address] GLUCOSE-HAND MONITOR 107 mg/dL H Sep 06, 2024 12:12 PM [facility] GLUCOSE-HAND MONITOR CAPILLARY Specime n Type: CAPILLARY Comment: Test performed by: [id number] Meter #: [id number] Ordering Provider: FRANCK TURNER Report Released Date/Time: Sep 06, 2024 12:29 PM Reporting Lab: [address] [address] Performing Lab: [address] [address] GLUCOSE-HAND MONITOR 181 mg/dL H -Sep 06, 2024 06:13 AM [facility] GLUCOSE-HAND MONITOR CAPILLARY Specime n Type: CAPILLARY Comment: Test performed by: [id number] Meter #: [id number] Ordering Provider: FRANCK TURNER Report Released Date/Time: Sep 06, 2024 06:36 AM Reporting Lab: [address] [address] Performing Lab: [address] [address] GLUCOSE-HAND MONITOR 102 mg/dL H Sep 05, 2024 08:47 PM [facility] GLUCOSE-HAND MONITOR CAPILLARY Specime n Type: CAPILLARY Comment: Test performed by: [id number] Meter #: [id number] Ordering Provider: FRANCK TURNER Report Released Date/Time: Sep 06, 2024 02:13 AM Reporting Lab: [address] [address] Performing Lab: [address] [address] GLUCOSE-HAND MONITOR 103 mg/dL H Sep 05, 2024 04:40 PM [facility] GLUCOSE-HAND MONITOR CAPILLARY Specime n Type: CAPILLARY Comment: AAMIR RN notified Test performed by: [id number] Meter #: [id number] Ordering Provider: FRANCK TURNER Report Released Date/Time: Sep 05, 2024 05:11 PM Reporting Lab: [address] [address] Performing Lab: [address] [address] GLUCOSE-HAND MONITOR 113 mg/dL H Sep 05, 2024 12:06 PM [facility] GLUCOSE-HAND MONITOR CAPILLARY Specime n Type: CAPILLARY Comment: Test performed by: [id number] Meter #: [id number] Ordering Provider: FRANCK TURNER Report Released Date/Time: Sep 05, 2024 12:23 PM Reporting Lab: [address] [address] Performing Lab: [address] [address] GLUCOSE-HAND MONITOR 115 mg/dL H Sep 05, 2024 06:26 AM [facility] GLUCOSE-HAND MONITOR CAPILLARY Specime n Type: CAPILLARY Comment: AAMIR Correction Dose Test performed by: [id number] Meter #: [id number] Ordering Provider: FRANCK TURNER Report Released Date/Time: Sep 05, 2024 06:43 AM Reporting Lab: [address] [address] Performing Lab: [address] [address] GLUCOSE-HAND MONITOR 111 mg/dL H Sep 04, 2024 08:59 PM [facility] GLUCOSE-HAND MONITOR CAPILLARY Specime n Type: CAPILLARY Comment: AAMIR RN notified Test performed by: [id number] Meter #: [id number] Ordering Provider: FRANCK TURNER Report Released Date/Time: Sep 04, 2024 09:36 PM Reporting Lab: [address] [address] Performing Lab: [address] [address] GLUCOSE-HAND MONITOR 123 mg/dL H Sep 04, 2024 04:41 PM [facility] GLUCOSE-HAND MONITOR CAPILLARY Specime n Type: CAPILLARY Comment: AAMIR RN notified Test performed by: [id number] Meter #: [id number] Ordering Provider: FRANCK TURNER Report Released Date/Time: Sep 04, 2024 05:03 PM Reporting Lab: [address] [address] Performing Lab: [address] [address] GLUCOSE-HAND MONITOR 118 mg/dL H Sep 04, 2024 12:36 PM [facility] GLUCOSE-HAND MONITOR CAPILLARY Specime n Type: CAPILLARY Comment: AAMIR RN notified Test performed by: [id number] Meter #: [id number] Ordering Provider: FRANCK TURNER Report Released Date/Time: Sep 04, 2024 12:53 PM Reporting Lab: [address] [address] Performing Lab: [place] [address] GLUCOSE-HAND MONITOR 129 mg/dL H 71-99 Sep 04, 2024 12:03 PM [facility] RESPIRATORY VIRUS PANEL (BIOFIRE) NASOPHARYN X Specimen Type: NASOPHARYNX Comment: ~For Test: RESPIRATORY VIRUS PANEL (BIOFIRE) ~ORDER READ BACK TO: FRANCK TURNER 09/04/24@11:30 Ordering Provider: FRANCK TURNER Report Released Date/Time: Sep 04, 2024 11:33 AM Reporting Lab: [place] [phone] Performing Lab: [place] [phone] ADENOVIRUS (BIOFIRE) Not Detected -Not D etected [...] -Not Detected Sep 04, 2024 06:55 AM [facility] MAGNESIUM PLASMA Specimen Type: PLASM A [...] Reporting Lab: [facility] [address] [facility] [address] Performing Lab: [place] [address] [facility] [address] MAGNESIUM 1.8 mg/dL 1.6-2.6 Sep 04, 2024 06:55 AM [facility] PANEL 1 PLASMA Specimen Type: PLASM [...] Sep 03, 2024 11:10 AM Reporting Lab: [address] [address] Performing Lab: [address] CREATININE 0.75 mg/dL 0.72-1.25 UREA NITROGEN 13 mg/dL 9-25 GLUCOSE 105 mg/dL H 74-100 SODIUM 128 mmol/L L 136-145 POTASSIUM 3.9 mmol/L 3.5-5.1 CHLORIDE 99 mmol/L 98-107 CO2 21 mmol/L L 22-29 CALCIUM 8.0 mg/dL L 8.4-10.2 ANION GAP 8 meq/L 3-19 eGFR (CKD-EPI) >90 Sep 04, 2024 06:02 AM [facility] GLUCOSE-HAND MONITOR CAPILLARY Specime n Type: CAPILLARY Comment: Test performed by: [id number] Meter #: [id number] Ordering Provider: FRANCK TURNER Report Released Date/Time: Sep 04, 2024 06:28 AM Reporting Lab: [address] Performing Lab: [address] GLUCOSE-HAND MONITOR 114 mg/dL H 71-99 Sep 03, 2024 05:19 PM [facility] GLUCOSE-HAND MONITOR CAPILLARY Specime n Type: CAPILLARY Comment: Test performed by: [id number] Meter #: [id number] Ordering Provider: FRANCK TURNER Report Released Date/Time: Sep 03, 2024 05:37 PM Reporting Lab: [address] Performing Lab: [address] [address] GLUCOSE-HAND MONITOR 124 mg/dL H 71-99 Sep 03, 2024 04:41 PM [facility] GLUCOSE-HAND MONITOR CAPILLARY Specime n Type: CAPILLARY Comment: Test performed by: [id number] Meter #: [id number] Ordering Provider: FRANCK TURNER Report Released Date/Time: Sep 03, 2024 06:09 PM Reporting Lab: [address] [address] Performing Lab: [address] [address] GLUCOSE-HAND MONITOR 112 mg/dL H 71-99 Sep 03, 2024 01:35 PM [facility] URINE LYTES URINE Specimen Type : URINE Comment: ~Altered mental status with no identifiable cause Ordering Provider: FRANCK TURNER Report Released Date/Time: Sep 02, 2024 04:44 PM Reporting Lab: [address] [address] Performing Lab: [address] [address] SODIUM 130 mmol/L POTASSIUM 47.6 mmol/L CHLORIDE 137 mmol/L Sep 03, 2024 01:35 PM [facility] CREATININE URINE Specimen Type: URINE Comment: ~Altered mental status with no identifiable cause Ordering Provider: FRANCK TURNER Report Released Date/Time: Sep 02, 2024 04:44 PM Reporting Lab: [address] [address] Performing Lab: [address] [address] CREATININE 150.9 mg/dL Sep 03, 2024 01:35 PM [facility] OSMOLALITY URINE Specimen Type: URINE Comment: ~Altered mental status with no identifiable cause Ordering Provider: FRANCK TURNER Report Released Date/Time: Sep 02, 2024 04:44 PM Reporting Lab: [address] [address] Performing Lab: [address] [address] OSMOLALITY 522 mosm/kg 38-1400 Sep 03, 2024 01:35 PM [facility] UREA NITROGEN URINE Specimen Type : URINE Comment: ~Altered mental status with no identifiable cause Ordering Provider: FRANCK TURNER Report Released Date/Time: Sep 02, 2024 04:44 PM Reporting Lab: [address] [address] Performing Lab: [address] [address] UREA NITROGEN 320 mg/dL Sep 03, 2024 01:35 PM [facility] URINALYSIS WITH REFLEX TO CULTURE URINE Specimen Type: URINE Comment: ~Altered mental status with no identifiable cause Ordering Provider: FRANCK TURNER Report Released Date/Time: Sep 02, 2024 04:44 PM Reporting Lab: [address] [address] Performing Lab: [address] [address] URINE COLOR Yellow Colorless-Yellow APPEARANCE CLOUDY H [...] H 0-28 Sep 03, 2024 11:58 AM [facility] GLUCOSE-HAND MONITOR CAPILLARY Specime n Type: CAPILLARY Comment: AAMIR RN notified Test performed by: [id number] Meter #: [id number] Ordering Provider: FRANCK TURNER Report Released Date/Time: Sep 03, 2024 12:15 PM Reporting Lab: [address] [address] Performing Lab: [address] [address] GLUCOSE-HAND MONITOR 135 mg/dL H Sep 03, 2024 07:09 AM [facility] GLUCOSE-HAND MONITOR CAPILLARY Specime n Type: CAPILLARY Comment: Test performed by: [id number] Meter #: [id number] Ordering Provider: FRANCK TURNER Report Released Date/Time: Sep 03, 2024 07:26 AM Reporting Lab: [address] [address] Performing Lab: [address] [address] GLUCOSE-HAND MONITOR 120 mg/dL H -Sep 03, 2024 07:05 AM [facility] CBC/PLT BLOOD Specimen Type: BLOOD No comment entered. Ordering Provider: FRANCK TURNER Report Released Date/Time: Sep 02, 2024 04:29 PM Reporting Lab: [facility] [address] [place] [address] Performing Lab: [address] [address] WBC 6.9 10*3/uL 5.0-10.0 RBC 3.48 10*6/uL L 4.6-6.2 HGB 9.5 g/dL L 14.0-18.0 HCT 29.1 L 42.0-52.0 MCV 83.6 fL 80.0-94.0 MCH 27.3 pg 27.0-31.0 MCHC 32.6 g/dL 32.0-36.0 PLT 258 10*3/uL 150-450 MPV 10.3 fL 9.0-13.1 RDW 14.8 11.0-16.0 NRBC 0.0 0.0-0.0 Sep 03, 2024 07:05 AM [facility] PANEL 1 PLASMA Specimen Type: PLASM [...] Sep 02, 2024 04:29 PM Reporting Lab: [address] [address] Performing Lab: [address] [address] CREATININE 0.82 mg/dL 0.72-1.25 UREA NITROGEN 12 mg/dL 9-25 GLUCOSE 109 mg/dL H 74-100 SODIUM 129 mmol/L L 136-145 POTASSIUM 4.2 mmol/L 3.5-5.1 CHLORIDE 99 mmol/L 98-107 CO2 21 mmol/L L 22-29 CALCIUM 8.1 mg/dL L 8.4-10.2 ANION GAP 9 meq/L 3-19 eGFR (CKD-EPI) 90 Sep 03, 2024 07:05 AM [facility] MAGNESIUM PLASMA Specimen Type: PLASM A [...] Sep 02, 2024 04:29 PM Reporting Lab: [address] [address] Performing Lab: [address] [address] MAGNESIUM 1.7 mg/dL 1.6-2.6 Sep 03, 2024 07:05 AM [facility] GLYCOHEMOGLOBIN BLOOD Specimen Type: BLOOD Comment: Prediabetes: 5.7%-6.4% Diabetes: >= 6.5% [place]-DoD guidelines for A1c interpretation: Glycemic control targets [...] 8.73 and 9.27. Ref: https://ngsp.org/CAPdata.asp. The in-house [employer] D-100 analyzer has a historical CV <= 2%. Contact the laboratory for further performance characteristics of this assay. Ordering Provider: FRANCK TURNER Report Released Date/Time: Sep 02, 2024 04:29 PM Reporting Lab: [address] [address] Performing Lab: [place] [phone] GLYCOHEMOGLOBIN 5.6 4.4-5.6 Sep 03, 2024 07:05 AM [facility] OSMOLALITY SERUM Specimen Type: SERUM No comment entered. Ordering Provider: FRANCK TURNER Report Released Date/Time: Sep 02, 2024 04:44 PM Reporting Lab: [address] [address] Performing Lab: [address] [address] OSMOLALITY 271 mosm/kg L 280-300 Sep 02, 2024 08:15 PM [facility] GLUCOSE-HAND MONITOR CAPILLARY Specime n Type: CAPILLARY Comment: AAMIR DEXTER notified Test performed by: [id number] Meter #: [id number] Ordering Provider: FRANCK TURNER Report Released Date/Time: Sep 02, 2024 08:57 PM Reporting Lab: [address] [address] Performing Lab: [address] [address] GLUCOSE-HAND MONITOR 126 mg/dL H 71-99 Sep 02, 2024 06:10 PM [facility] MRSA SURVL NARES DNA NARES Specime [...] Sep 02, 2024 05:12 PM Reporting Lab: [address] [address] Performing Lab: [address] [address] MRSA SURVL NARES DNA Negative Negative Sep 02, 2024 05:36 PM [facility] GLUCOSE-HAND MONITOR CAPILLARY Specime n Type: CAPILLARY Comment: Test performed by: [id number] Meter #: [id number] Ordering Provider: FRANCK TURNER Report Released Date/Time: Sep 02, 2024 05:53 PM Reporting Lab: [address] [address] Performing Lab: [address] [address] GLUCOSE-HAND MONITOR 127 mg/dL H 71-99 Aug 29, 2024 10:04 PM [facility] URINALYSIS WITH REFLEX TO CULTURE URINE Specimen Type: URINE Comment: ~For Test: URINALYSIS WITH REFLEX TO CULTURE ~REORDER Ordering Provider: FELISA COLE Report Released Date/Time: Aug 29, 2024 09:36 PM Reporting Lab: [address] [address] Performing Lab: [address] [address] URINE COLOR Yellow Colorless-Yellow APPEARANCE Clear Clear [...] Aug 29, 2024 07:55 PM Reporting Lab: [address] [address] Performing Lab: [address] [address] HIGH SENSITIVITY TROPONIN I 7 4-35 Aug 29, 2024 08:32 PM [facility] CBC/PLT BLOOD Specimen Type: BLOOD No comment entered. Ordering Provider: FELISA COLE Report Released Date/Time: Aug 29, 2024 07:55 PM Reporting Lab: [address] [address] Performing Lab: [address] [address] WBC 11.2 10*3/uL H 5.0-10.0 RBC 3.97 [...] Aug 29, 2024 07:55 PM Reporting Lab: [address] [address] Performing Lab: [address] [address] CREATININE 0.85 mg/dL 0.72-1.25 UREA NITROGEN 15 [...] 04, 2024 10:21 PM 0 [place] [facility] Sep 04, 2024 08:38 PM 99.2 F 86 /min 127/68 mm[Hg] 18 /min 93 % 0 [place] [facility] Sep 04, 2024 07:06 PM 1 [place] [facility] Sep 04, 2024 06:44 PM 2 [place] [facility] Sep 04, 2024 06:39 PM 99.9 F 76 /min 154/68 mm[Hg] 90 % [place] [facility] Advance Directives: All historical and current Section Date Range: From patient's date of to the date document was created. This section includes ALL of a patient's completed or amended [place] Advance and Rescinded Directives. The entries below indicate that a directive exists for the patient, but an actual copy is not included with this document. The data comes from all [place] facilities. Date Advance Directives Provider Source Mar 08, 2024 ADVANCE DIRECTIVE DISCUSSION [facility] Radiology Reports: +/- 30 days of the [...] the Encounter. The data comes from all [place] treatment facilities. Date/Time Radiology Report Provider Source Sep 06, 2024 01:40 PM MRI BRAIN W & W/O: LUIS MANUEL PERDOMO FABIAN [id number] -1945 M Exm Date: SEP 06, 2024@13:40 Req Phys: FRANCK TURNER Loc: 5-MED/TEL/09-06-2024@19:09 Img Loc: [facility] Service: [place] [address] (Case [id number] COMPLETE) MRI BRAIN W & W/O (MRI Detailed) CPT:11721 Contrast Media : Gadolinium Reason for Study: SEE CLINICAL HISTORY Pharmaceutical: GADOTERIDOL 279.3MG/ML 20ML INJ, 19ml Clinical History: MRI Screening (Required): IMPLANTED DEVICE DOCUMENTATION IMPLANTED DEVICE DOCUMENTATION NOT FOUND Does the have any Cardiac Implants? None Does the [place] have any implanted stimulators? None Does the [place] have cochlear implants? No Does the [place] have Cerebral aneurysm clip(s)? I don't know Does the [place] have any shrapnel? I don't know If yes, where in your body? Please list other implants not listed above: MRI table has a weight limit of 551 lbs. [place]'s Weight: *212 lb [96.16 kg] (09/04/2024 05:19) Is this patient claustrophobic?: No REASON FOR EXAM:MULTIPLE SCLEROSIS (indicate suspected or established) PERTINENT PATIENT HISTORY: MS c/f for flare Risk factors for GADOLINIUM NEPHROGENIC SYSTEMIC SCLEROSIS: Report Status: Verified Date Reported: SEP 06, 2024 Date Verified: SEP 06, 2024 Specialist Employee [employer] Relations E-Sig: Report: MRI brain without and with [...] Staff: ARCENIO LEYVA, Staff Radiologist Verified by inbound sales manager for ARCENIO LEYVA /[facility] Sep 06, 2024 01:40 PM MRI C SPINE W & W/ O CONTRAST(FURTHER SEQUENCES): LUIS MANUEL PERDOMO [id number] -1945 M Exm Date: SEP 06, 2024@13:40 Req Phys: FRANCK TURNERISIAHFLOSav Pat Loc: 5-MED/TEL/09-07-2024@06:42 Img Loc: [facility] Service: [facility]ICE [place] [id number] (Case [id number] COMPLETE) MRI C SPINE W & W/O CONTRAST(FURT(MRI Detailed) CPT:51561 Contrast Media : Gadolinium Reason for Study: SEE CLINICAL HISTORY Pharmaceutical: GADOTERIDOL 279.3MG/ML 20ML INJ, 19ml Clinical History: STATUS OF PLAIN FILMS:Not performed (Provide justification for MR W/O prior plain films below.) MRI for MS MRI Screening (Required): IMPLANTED DEVICE DOCUMENTATION IMPLANTED DEVICE DOCUMENTATION NOT FOUND Does the [place] have any Cardiac Implants? None Does the have any implanted stimulators? None Does the have cochlear implants? No Does the [place] have Cerebral aneurysm clip(s)? I don't know [...] 07, 2024 Date Verified: SEP 07, 2024 Specialist Employee [employer] E-Sig: Report: EXAMINATION: MRI OF THE CERVICAL [...] Interpreting Staff: HUANG TAI, Radiologist Verified by inbound sales manager for HUANG TIA /HUANG WHEATLEY-[facility] Sep 03, 2024 10:45 AM CHEST SINGLE(1) EW: LUIS MANUEL PERDOMO [id number] -1945 M Exm Date: SEP 03, 2024@10:45 Req Phys: FRANCK TURNER Pat Loc: 5-MED/TEL/09-03-2024@10:56 Img Loc: CDD RADIOLOGY Service: [place] [address] (Case [id number] COMPLETE)CHEST SINGLE(1) VIEW (RAD Detailed) CPT:34427 Proc Modifiers : PORTABLE EXAM Reason for Study: Eval volume status Clinical History: Report Status: Verified Date Reported: SEP 03, 2024 Date Verified: SEP 03, 2024 Specialist Employee Labor Relations E-Sig: Report: EXAMINATION: SINGLE VIEW CHEST CLINICAL [...] Interpreting Staff: HUANG TAI, Radiologist Verified by inbound sales manager for HUANG TAI /HUANG [facility] Aug 29, 2024 08:[address] HEAD W/O CONT: LUIS MANUEL PERDOMO [id number] -1945 M Exm Date: AUG 29, 2024@20:28 Req Phys: FELISA COLE Loc: ED/4P-12A (Req'g Loc) Img Loc: CT SCAN Service: [place] [address] (Case [id number] COMPLETE) CT HEAD W/O CONT (CT Detailed) CPT:46954 Reason for Study: SEE CLINICAL HISTORY Clinical History: REASON FOR SEND OUT: ATTENDING PHYSICIAN NAME: New transient neurological s/s - suspected TIA HISTORY/REASON FOR EXAM: confusion Report Status: Verified Date Reported: AUG 29, 2024 Date Verified: AUG 29, 2024 Specialist Employee Labor Relations E-Sig: Report: HISTORY confusion COMPARISON No prior [...] Code: NO ALERT REQUIRED Primary Interpreting Staff: ABDIRAMHAN CROW, Staff Physician Verified by inbound sales manager for ABDIRAHMAN CROW /[facility] [...] the Encounter. The data comes from all [place] treatment facilities. Date/Time Pathology Report Provider Source Sep 03, 2024 01:35 PM LR MICROBIOLOGY RE PORT: Reporting Lab: [facility] [CLIA# [id number]] [address] [place] [id number] Accession [UID]: [id number] [[id number]] Received: Sep 03, 2024@14:02 Collection sample: URINE, [...] [facility] [CLIA# [id number]] [address] [place] [id number] [facility] Sep 02, 2024 06:00 PM LR MICROBIOLOGY RE PORT: Reporting Lab: [facility] [CLIA# [id number]] [address] [place], [place] [id number] Accession [UID]: [id number] [[id number]] Received: Sep 02, 2024@18:07 Collection sample: BLD CULTURE BOTTLES Collection date: Sep 02, 2024 18:00 Site/Specimen: BLOOD Provider: FRANCK TURNER Comment on specimen: L HAND Test(s) ordered: CULTURE, BLOOD................ completed: Sep 08, 2024 * BACTERIOLOGY FINAL REPORT => Sep 08, 2024 08:25 TECH CODE: [id number] Bacteriology Remark(s): Blood culture status=NO GROWTH (unless notified otherwise) 09/03/2024 AEROBIC: NO GROWTH ANAEROBIC: NO GROWTH =--=--=--=--=--=--=--=--=--=-- =--=--=--=--=--=--=--=--=--=-- =--=--=--=--=--=-- Performing Laboratory: Bacteriology Report Performed By: [facility] [CLIA# [id number]] [address] [place] [address] MAGDY [facility] Aug 29, 2024 10:18 PM LR MICROBIOLOGY RE PORT: Reporting Lab: [facility] [CLIA# [id number]] [address] [place] [address] Accession [UID]: [id number] [[id number]] Received: Aug 29, 2024@22:18 Collection sample: URINE, CLEAN CATCH Collection date: Aug 29, 2024 22:18 Site/Specimen: URINE Provider: FELISA COLE Test(s) ordered: CULTURE, URINE................ completed: Aug 31, 2024 09:51 * BACTERIOLOGY FINAL REPORT => Aug 31, 2024 09:51 TECH CODE: [id number] Bacteriology Remark(s): NO GROWTH 08/30/2024 <10,000 CFU/ML. 08/31/2024 =--=--=--=--=--=--=--=--=--=-- =--=--=--=--=--=--=--=--=--=-- =--=--=--=--=--=-- Performing Laboratory: Bacteriology Report Performed By: [facility] [IA# [id number]] [address] [place] [address] [facility]
--- OUTSIDE RECORDS SUMMARY | 2024-09-04 06:25 | XMS_ITS ---
[place] DAILY HOSPITALIZATION DATA [facility] Encounter Summary Created on: September 22, 2024 LUIS MANUEL PERDOMO : 1945 Sex: Male Author Name [facility] Organization [facility] Address [address] [place] [address] Care Team Providers Care Mold Forms Builder Name Role Phone YULISSA HENDERSON Primary Care [...] PLAN F Mar 24, 2014 PLAN F [id number] LUIS MANUEL PERDOMO PATIENT [facility] [place] [facility]UEC[facility] PREFERRED PROVIDER ORGANIZAT ION (PPO) [facility] SLE Sep 21, 2012 [id number] [phone] [id number] LUIS MANUEL PERDOMO PATIENT [employer] ([id number]) PRESCRIPT ION WL3A Sep 21, 2012 [id number] LUIS MANUEL PERDOMO PATIENT MEDICARE (WNR) MEDICARE (M) PART B Sep 21, 2012 PART B [id number] [phone] NOEMI PERDOMO PATIENT MEDICARE (WNR) MEDICARE (M) PART A Jan 22, 2011 PART A [id number] LEANNE, NOEMI PATIENT MEDICARE PART D (WNR) MEDICARE (M) PART D Mar 24, 2014 PART D [id number] LUIS MANUEL EPRDOMO PATIENT Selected Encounter This section includes the information on record at [place] for the Encounter. Date/Time Encounter Type Encounter Description Reason Pro vider Source Sep 04, 2024 10:25 AM Inpatient Visit DAILY HOSPITALIZATION DATA [facility] Encounter Template Text not used by MS Plan of Treatment: Future Appointments (+ 6 months) and Future Tests (+/- 45 days) The Plan of Treatment section includes future care activities for the [facility] This section includes future appointments and future orders which are active, pending or scheduled. Future Appointments This section includes appointments that were scheduled to occur 6 months from the date of the Encounter, up to a maximum of 20 appointments. The data comes from all [place] treatment facilities. Appointment Date/Time Appointment Type Appointme nt Facility Name Sep 13, 2024 08:00 AM AMBULATORY - NONE [facility] Sep 30, 2024 01:30 PM AMBULATORY - SURGERY [place] [facility] Active, Pending, and Scheduled Orders This section includes a listing of several types of active, pending, and scheduled orders, including clinic medications orders, diagnostic test orders, procedure orders and consult orders; where the start date of the order is 45 days before the date of the Encounter or 45 days after the date of theEncounter. The data comes from all [facility] facilities. Test Date/Time Test Type Test Details Facility Name Sep 13, 2024 01:33 PM Consult Order [facility] Cons Swimming Pool Salesperson's Choice [facility] Lab Results: +/- 30 days of the encounter This section includes the Chemistry and Hematology Lab Results on record with MS for the patient. Radiology Reports and Pathology Reports are provided separately, in subsequent sections. Lab Results This section contains the Chemistry/Hematology Results that were resulted 30 days before or 30 daysafter the date of the Encounter. Date/Time Source Result Type Result - Unit Interpretation Reference Range Specimen Type Comment Sep 09, 2024 12:16 PM [facility] GLUCOSE-HAND MONITOR CAPILLARY Specimen Type: CAPILLARY Comment: Test performed by: [id number] Meter #: [id number] Ordering Provider: FRANCK TURNER Report Released Date/Time: Sep 09, 2024 12:33 PM Reporting Lab: [address] [address] Performing Lab: [address] [address] GLUCOSE-HAND MONITOR 116 mg/dL H Sep 09, 2024 06:07 AM [facility] GLUCOSE-HAND MONITOR CAPILLARY Specime n Type: CAPILLARY Comment: Test performed by: [id number] Meter #: [id number] Ordering Provider: FRANCK TURNER Report Released Date/Time: Sep 09, 2024 08:17 AM Reporting Lab: [address] [address] Performing Lab: [address] [address] GLUCOSE-HAND MONITOR 112 mg/dL H Sep 08, 2024 09:13 PM [facility] GLUCOSE-HAND MONITOR CAPILLARY Specime n Type: CAPILLARY Comment: Test performed by: [id number] Meter #: [id number] Ordering Provider: FRANCK TURNER Report Released Date/Time: Sep 08, 2024 09:31 PM Reporting Lab: [address] [address] Performing Lab: [address] [address] GLUCOSE-HAND MONITOR 107 mg/dL H Sep 08, 2024 03:49 PM [facility] GLUCOSE-HAND MONITOR CAPILLARY Specime n Type: CAPILLARY Comment: AAMIR RN notified Test performed by: [id number] Meter #: [id number] Ordering Provider: FRANCK TURNER Report Released Date/Time: Sep 08, 2024 04:33 PM Reporting Lab: [address] [address] Performing Lab: [address] [address] GLUCOSE-HAND MONITOR 162 mg/dL H Sep 08, 2024 11:43 AM [facility] GLUCOSE-HAND MONITOR CAPILLARY Specime n Type: CAPILLARY Comment: AAMIR RN notified Test performed by: [id number] Meter #: [id number] Ordering Provider: FRANCK TURNER Report Released Date/Time: Sep 08, 2024 12:03 PM Reporting Lab: [address] [address] Performing Lab: [address] [address] GLUCOSE-HAND MONITOR 133 mg/dL H Sep 08, 2024 06:13 AM [facility] GLUCOSE-HAND MONITOR CAPILLARY Specime n Type: CAPILLARY Comment: Test performed by: [id number] Meter #: [id number] Ordering Provider: FRANCK TURNER Report Released Date/Time: Sep 08, 2024 06:46 AM Reporting Lab: [address] [address] Performing Lab: [address] [address] GLUCOSE-HAND MONITOR 104 mg/dL H Sep 07, 2024 07:59 PM [facility] GLUCOSE-HAND MONITOR CAPILLARY Specime n Type: CAPILLARY Comment: Test performed by: [id number] Meter #: [id number] Ordering Provider: FRANCK TURNER Report Released Date/Time: Sep 07, 2024 09:05 PM Reporting Lab: [address] [address] Performing Lab: [address] [address] GLUCOSE-HAND MONITOR 107 mg/dL H Sep 07, 2024 04:39 PM [facility] GLUCOSE-HAND MONITOR CAPILLARY Specime n Type: CAPILLARY Comment: Test performed by: [id number] Meter #: [id number] Ordering Provider: FRANCK TURNER Report Released Date/Time: Sep 07, 2024 05:09 PM Reporting Lab: [address] [address] Performing Lab: [address] [address] GLUCOSE-HAND MONITOR 105 mg/dL H Sep 07, 2024 11:41 AM [facility] GLUCOSE-HAND MONITOR CAPILLARY Specime n Type: CAPILLARY Comment: Test performed by: [id number] Meter #: [id number] Ordering Provider: FRANCK TURNER Report Released Date/Time: Sep 07, 2024 12:41 PM Reporting Lab: [address] [address] Performing Lab: [address] [address] GLUCOSE-HAND MONITOR 144 mg/dL H Sep 07, 2024 05:56 AM [facility] GLUCOSE-HAND MONITOR CAPILLARY Specime n Type: CAPILLARY Comment: Test performed by: [id number] Meter #: [id number] Ordering Provider: FRANCK TURNER Report Released Date/Time: Sep 07, 2024 06:31 AM Reporting Lab: [address] [address] Performing Lab: [address] [address] GLUCOSE-HAND MONITOR 96 mg/dL Sep 06, 2024 08:10 PM [facility] GLUCOSE-HAND MONITOR CAPILLARY Specime n Type: CAPILLARY Comment: Test performed by: [id number] Meter #: [id number] Ordering Provider: FRANCK TURNER Report Released Date/Time: Sep 06, 2024 08:52 PM Reporting Lab: [address] [address] Performing Lab: [address] [address] GLUCOSE-HAND MONITOR 124 mg/dL H Sep 06, 2024 04:27 PM [facility] GLUCOSE-HAND MONITOR CAPILLARY Specime n Type: CAPILLARY Comment: Test performed by: [id number] Meter #: [id number] Ordering Provider: FRANCK TURNER Report Released Date/Time: Sep 06, 2024 05:15 PM Reporting Lab: [address] [address] Performing Lab: [address] [address] GLUCOSE-HAND MONITOR 107 mg/dL H Sep 06, 2024 12:12 PM [facility] GLUCOSE-HAND MONITOR CAPILLARY Specime n Type: CAPILLARY Comment: Test performed by: [id number] Meter #: [id number] Ordering Provider: FRANCK TURNER Report Released Date/Time: Sep 06, 2024 12:29 PM Reporting Lab: [address] [address] Performing Lab: [address] [address] GLUCOSE-HAND MONITOR 181 mg/dL H -Sep 06, 2024 06:13 AM [facility] GLUCOSE-HAND MONITOR CAPILLARY Specime n Type: CAPILLARY Comment: Test performed by: [id number] Meter #: [id number] Ordering Provider: FRANCK TURNER Report Released Date/Time: Sep 06, 2024 06:36 AM Reporting Lab: [address] [address] Performing Lab: [address] [address] GLUCOSE-HAND MONITOR 102 mg/dL H Sep 05, 2024 08:47 PM [facility] GLUCOSE-HAND MONITOR CAPILLARY Specime n Type: CAPILLARY Comment: Test performed by: [id number] Meter #: [id number] Ordering Provider: FRANCK TURNER Report Released Date/Time: Sep 06, 2024 02:13 AM Reporting Lab: [address] [address] Performing Lab: [address] [address] GLUCOSE-HAND MONITOR 103 mg/dL H Sep 05, 2024 04:40 PM [facility] GLUCOSE-HAND MONITOR CAPILLARY Specime n Type: CAPILLARY Comment: AAMIR RN notified Test performed by: [id number] Meter #: [id number] Ordering Provider: FRANCK TURNER Report Released Date/Time: Sep 05, 2024 05:11 PM Reporting Lab: [address] [address] Performing Lab: [address] [address] GLUCOSE-HAND MONITOR 113 mg/dL H Sep 05, 2024 12:06 PM [facility] GLUCOSE-HAND MONITOR CAPILLARY Specime n Type: CAPILLARY Comment: Test performed by: [id number] Meter #: [id number] Ordering Provider: FRANCK TURNER Report Released Date/Time: Sep 05, 2024 12:23 PM Reporting Lab: [address] [address] Performing Lab: [address] [address] GLUCOSE-HAND MONITOR 115 mg/dL H Sep 05, 2024 06:26 AM [facility] GLUCOSE-HAND MONITOR CAPILLARY Specime n Type: CAPILLARY Comment: AAMIR Correction Dose Test performed by: [id number] Meter #: [id number] Ordering Provider: FRANCK TURNER Report Released Date/Time: Sep 05, 2024 06:43 AM Reporting Lab: [address] [address] Performing Lab: [address] [address] GLUCOSE-HAND MONITOR 111 mg/dL H Sep 04, 2024 08:59 PM [facility] GLUCOSE-HAND MONITOR CAPILLARY Specime n Type: CAPILLARY Comment: AAMIR RN notified Test performed by: [id number] Meter #: [id number] Ordering Provider: FRANCK TURNER Report Released Date/Time: Sep 04, 2024 09:36 PM Reporting Lab: [address] [address] Performing Lab: [address] [address] GLUCOSE-HAND MONITOR 123 mg/dL H Sep 04, 2024 04:41 PM [facility] GLUCOSE-HAND MONITOR CAPILLARY Specime n Type: CAPILLARY Comment: AAMIR RN notified Test performed by: [id number] Meter #: [id number] Ordering Provider: FRANCK TURNER Report Released Date/Time: Sep 04, 2024 05:03 PM Reporting Lab: [address] [address] Performing Lab: [address] [address] GLUCOSE-HAND MONITOR 118 mg/dL H Sep 04, 2024 12:36 PM [facility] GLUCOSE-HAND MONITOR CAPILLARY Specime n Type: CAPILLARY Comment: AAMIR RN notified Test performed by: [id number] Meter #: [id number] Ordering Provider: FRANCK TURNER Report Released Date/Time: Sep 04, 2024 12:53 PM Reporting Lab: [address] [address] Performing Lab: [place] [address] GLUCOSE-HAND MONITOR 129 mg/dL H 71-99 Sep 04, 2024 12:03 PM [facility] RESPIRATORY VIRUS PANEL (BIOFIRE) NASOPHARYN X Specimen Type: NASOPHARYNX Comment: ~For Test: RESPIRATORY VIRUS PANEL (BIOFIRE) ~ORDER READ BACK TO: FRANCK TURNER 09/04/24@11:30 Ordering Provider: FRANCK TURNER Report Released Date/Time: Sep 04, 2024 11:33 AM Reporting Lab: [place] [phone] Performing Lab: [place] [phone] ADENOVIRUS (BIOFIRE) Not Detected -Not D etected [...] -Not Detected Sep 04, 2024 06:55 AM [facility] MAGNESIUM PLASMA Specimen Type: PLASM [...] 03, 2024 11:10 AM Reporting Lab: [place] [facility] [address] [facility] [address] Performing Lab: [place] [address] [facility] [address] MAGNESIUM 1.8 mg/dL 1.6-2.6 Sep 04, 2024 06:55 AM [facility] PANEL 1 PLASMA Specimen Type: [...] Sep 03, 2024 11:10 AM Reporting Lab: [address] [address] Performing Lab: [address] CREATININE 0.75 mg/dL 0.72-1.25 UREA NITROGEN 13 mg/dL 9-25 GLUCOSE 105 mg/dL H 74-100 SODIUM 128 mmol/L L 136-145 POTASSIUM 3.9 mmol/L 3.5-5.1 CHLORIDE 99 mmol/L 98-107 CO2 21 mmol/L L 22-29 CALCIUM 8.0 mg/dL L 8.4-10.2 ANION GAP 8 meq/L 3-19 eGFR (CKD-EPI) >90 Sep 04, 2024 06:02 AM [facility] GLUCOSE-HAND MONITOR CAPILLARY Specime n Type: CAPILLARY Comment: Test performed by: [id number] Meter #: [id number] Ordering Provider: FRANCK TURNER Report Released Date/Time: Sep 04, 2024 06:28 AM Reporting Lab: [address] Performing Lab: [address] GLUCOSE-HAND MONITOR 114 mg/dL H 71-99 Sep 03, 2024 05:19 PM [facility] GLUCOSE-HAND MONITOR CAPILLARY Specime n Type: CAPILLARY Comment: Test performed by: [id number] Meter #: [id number] Ordering Provider: FRANCK TURNER Report Released Date/Time: Sep 03, 2024 05:37 PM Reporting Lab: [address] Performing Lab: [address] [address] GLUCOSE-HAND MONITOR 124 mg/dL H 71-99 Sep 03, 2024 04:41 PM [facility] GLUCOSE-HAND MONITOR CAPILLARY Specime n Type: CAPILLARY Comment: Test performed by: [id number] Meter #: [id number] Ordering Provider: FRANCK TURNER Report Released Date/Time: Sep 03, 2024 06:09 PM Reporting Lab: [address] [address] Performing Lab: [address] [address] GLUCOSE-HAND MONITOR 112 mg/dL H 71-99 Sep 03, 2024 01:35 PM [facility] CREATININE URINE Specimen Type: URINE Comment: ~Altered mental status with no identifiable cause Ordering Provider: FRANCK TURNER Report Released Date/Time: Sep 02, 2024 04:44 PM Reporting Lab: [facility] [address] [place] [address] Performing Lab: [address] [address] CREATININE 150.9 mg/dL Sep 03, 2024 01:35 PM [facility] URINE LYTES URINE Specimen Type : URINE Comment: ~Altered mental status with no identifiable cause Ordering Provider: FRANCK TURNER Report Released Date/Time: Sep 02, 2024 04:44 PM Reporting Lab: [address] [address] Performing Lab: [address] [address] SODIUM 130 mmol/L POTASSIUM 47.6 mmol/L CHLORIDE 137 mmol/L Sep 03, 2024 01:35 PM [facility] UREA NITROGEN URINE Specimen Type : URINE Comment: ~Altered mental status with no identifiable cause Ordering Provider: FRANCK TURNER Report Released Date/Time: Sep 02, 2024 04:44 PM Reporting Lab: [address] [address] Performing Lab: [address] [address] UREA NITROGEN 320 mg/dL Sep 03, 2024 01:35 PM [facility] OSMOLALITY URINE Specimen Type: URINE Comment: ~Altered mental status with no identifiable cause Ordering Provider: FRANCK TURNER Report Released Date/Time: Sep 02, 2024 04:44 PM Reporting Lab: [address] [address] Performing Lab: [address] [address] OSMOLALITY 522 mosm/kg 38-1400 Sep 03, 2024 01:35 PM [facility] URINALYSIS WITH REFLEX TO CULTURE URINE Specimen Type: URINE Comment: ~Altered mental status with no identifiable cause Ordering Provider: FRANCK TURNER Report Released Date/Time: Sep 02, 2024 04:44 PM Reporting Lab: [address] [address] Performing Lab: [address] [address] URINE COLOR Yellow Colorless-Yellow APPEARANCE CLOUDY H [...] H 0-28 Sep 03, 2024 11:58 AM [facility] GLUCOSE-HAND MONITOR CAPILLARY Specime n Type: CAPILLARY Comment: AAMIR RN notified Test performed by: [id number] Meter #: [id number] Ordering Provider: FRANCK TURNER Report Released Date/Time: Sep 03, 2024 12:15 PM Reporting Lab: [address] [address] Performing Lab: [address] [address] GLUCOSE-HAND MONITOR 135 mg/dL H Sep 03, 2024 07:09 AM [facility] GLUCOSE-HAND MONITOR CAPILLARY Specime n Type: CAPILLARY Comment: Test performed by: [id number] Meter #: [id number] Ordering Provider: FRANCK TURNER Report Released Date/Time: Sep 03, 2024 07:26 AM Reporting Lab: [address] [address] Performing Lab: [address] [address] GLUCOSE-HAND MONITOR 120 mg/dL H -Sep 03, 2024 07:05 AM [facility] MAGNESIUM PLASMA Specimen Type: PLASM [...] Sep 02, 2024 04:29 PM Reporting Lab: [address] [address] Performing Lab: [address] [address] MAGNESIUM 1.7 mg/dL 1.6-2.6 Sep 03, 2024 07:05 AM [facility] CBC/PLT BLOOD Specimen Type: BLOOD No comment entered. Ordering Provider: FRANCK TURNER Report Released Date/Time: Sep 02, 2024 04:29 PM Reporting Lab: [facility] [address] [facility] [address] Performing Lab: [address] [address] WBC 6.9 10*3/uL 5.0-10.0 RBC 3.48 10*6/uL L 4.6-6.2 HGB 9.5 g/dL L 14.0-18.0 HCT 29.1 L 42.0-52.0 MCV 83.6 fL 80.0-94.0 MCH 27.3 pg 27.0-31.0 MCHC 32.6 g/dL 32.0-36.0 PLT 258 10*3/uL 150-450 MPV 10.3 fL 9.0-13.1 RDW 14.8 11.0-16.0 NRBC 0.0 0.0-0.0 Sep 03, 2024 07:05 AM [facility] PANEL 1 PLASMA Specimen Type: [...] Sep 02, 2024 04:29 PM Reporting Lab: [address] [address] Performing Lab: [address] [address] CREATININE 0.82 mg/dL 0.72-1.25 UREA NITROGEN 12 mg/dL 9-25 GLUCOSE 109 mg/dL H 74-100 SODIUM 129 mmol/L L 136-145 POTASSIUM 4.2 mmol/L 3.5-5.1 CHLORIDE 99 mmol/L 98-107 CO2 21 mmol/L L 22-29 CALCIUM 8.1 mg/dL L 8.4-10.2 ANION GAP 9 meq/L 3-19 eGFR (CKD-EPI) 90 Sep 03, 2024 07:05 AM [facility] GLYCOHEMOGLOBIN BLOOD Specimen Type: BLOOD Comment: Prediabetes: 5.7%-6.4% Diabetes: >= 6.5% [facility] guidelines for A1c interpretation: Glycemic [...] 8.73 and 9.27. Ref: https://ngsp.org/CAPdata.asp. The in-house [employer]-Tinteo D-100 analyzer has a historical CV <= 2%. Contact the laboratory for further performance characteristics of this assay. Ordering Provider: FRANCK TURNER Report Released Date/Time: Sep 02, 2024 04:29 PM Reporting Lab: [address] [address] Performing Lab: [place] [phone] GLYCOHEMOGLOBIN 5.6 4.4-5.6 Sep 03, 2024 07:05 AM [facility] OSMOLALITY SERUM Specimen Type: SERUM No comment entered. Ordering Provider: FRANCK TURNER Report Released Date/Time: Sep 02, 2024 04:44 PM Reporting Lab: [address] [address] Performing Lab: [address] [address] OSMOLALITY 271 mosm/kg L 280-300 Sep 02, 2024 08:15 PM [facility] GLUCOSE-HAND MONITOR CAPILLARY Specime n Type: CAPILLARY Comment: AAMIR DEXTER notified Test performed by: [id number] Meter #: [id number] Ordering Provider: FRANCK TURNER Report Released Date/Time: Sep 02, 2024 08:57 PM Reporting Lab: [address] [address] Performing Lab: [address] [address] GLUCOSE-HAND MONITOR 126 mg/dL H 71-99 Sep 02, 2024 06:10 PM [facility] MRSA SURVL NARES DNA NARES [...] Sep 02, 2024 05:12 PM Reporting Lab: [address] [address] Performing Lab: [address] [address] MRSA SURVL NARES DNA Negative Negative Sep 02, 2024 05:36 PM [facility] GLUCOSE-HAND MONITOR CAPILLARY Specime n Type: CAPILLARY Comment: Test performed by: [id number] Meter #: [id number] Ordering Provider: FRANCK TURNER Report Released Date/Time: Sep 02, 2024 05:53 PM Reporting Lab: [address] [address] Performing Lab: [address] [address] GLUCOSE-HAND MONITOR 127 mg/dL H 71-99 Aug 29, 2024 10:04 PM [facility] URINALYSIS WITH REFLEX TO CULTURE URINE Specimen Type: URINE Comment: ~For Test: URINALYSIS WITH REFLEX TO CULTURE ~REORDER Ordering Provider: FELISA COLE Report Released Date/Time: Aug 29, 2024 09:36 PM Reporting Lab: [address] [address] Performing Lab: [address] [address] URINE COLOR Yellow Colorless-Yellow APPEARANCE Clear Clear [...] /[LPF] 0-28 Aug 29, 2024 08:32 PM [facility] HIGH SENSITIVITY TROPONIN I PLASMA Specimen Ty [...] Aug 29, 2024 07:55 PM Reporting Lab: [address] [address] Performing Lab: [address] [address] HIGH SENSITIVITY TROPONIN I 7 4-35 Aug 29, 2024 08:32 PM [facility] CBC/PLT BLOOD Specimen Type: BLOOD No comment entered. Ordering Provider: FELISA COLE Report Released Date/Time: Aug 29, 2024 07:55 PM Reporting Lab: [address] [address] Performing Lab: [address] [address] WBC 11.2 10*3/uL H 5.0-10.0 RBC 3.97 10*6/uL L 4.6-6.2 HGB 10.9 g/dL L 14.0-18.0 HCT 33.5 L 42.0-52.0 MCV 84.4 fL 80.0-94.0 MCH 27.5 pg 27.0-31.0 MCHC 32.5 g/dL 32.0-36.0 PLT 230 10*3/uL 150-450 MPV 10.2 fL 9.0-13.1 RDW 14.6 11.0-16.0 NRBC 0.0 0.0-0.0 Aug 29, 2024 08:32 PM [facility] PANEL 5 PLASMA Specimen Type: PLASM A [...] Aug 29, 2024 07:55 PM Reporting Lab: [address] [address] Performing Lab: [address] [address] CREATININE 0.85 mg/dL 0.72-1.25 UREA NITROGEN 15 [...] 04, 2024 10:21 PM 0 [place] Sep 04, 2024 08:38 PM 99.2 F 86 /min 127/68 mm[Hg] 18 /min 93 % 0 [place] [facility] Sep 04, 2024 07:06 PM 1 [place] [facility] Sep 04, 2024 06:44 PM 2 [place] [facility] Sep 04, 2024 06:39 PM 99.9 F 76 /min 154/68 mm[Hg] 90 % [place] Advance Directives: All historical and current Section Date Range: From patient's date of to the date document was created. This section includes ALL of a patient's completed or amended [place] Advance and Rescinded Directives. The entries below indicate that a directive exists for the patient, but an actual copy is not included with this document. The data comes from all [place] facilities. Date Advance Directives Provider Source Mar 08, 2024 ADVANCE DIRECTIVE DISCUSSION [facility] Radiology Reports: +/- 30 days of [...] the Encounter. The data comes from all [place] treatment facilities. Date/Time Radiology Report Provider Source Sep 06, 2024 01:40 PM MRI BRAIN W & W/O: LUIS MANUEL PERDOMO FABIAN [id number] -1945 M Exm Date: SEP 06, 2024@13:40 Req Phys: FRANCK TURNER Loc: 5-MED/TEL/09-06-2024@19:09 Img Loc: [facility] Service: [place] [address] (Case [id number] COMPLETE) MRI BRAIN W & W/O (MRI Detailed) CPT:59639 Contrast Media : Gadolinium Reason for Study: SEE CLINICAL HISTORY Pharmaceutical: GADOTERIDOL 279.3MG/ML 20ML INJ, 19ml Clinical History: MRI Screening (Required): IMPLANTED DEVICE DOCUMENTATION IMPLANTED DEVICE DOCUMENTATION NOT FOUND Does the have any Cardiac Implants? None Does the [place] have any implanted stimulators? None Does the [place] have cochlear implants? No Does the [place] have Cerebral aneurysm clip(s)? I don't know Does the [place] have any shrapnel? I don't know If yes, where in your body? Please list other implants not listed above: MRI table has a weight limit of 551 lbs. Wins[place]'s Weight: *212 lb [96.16 kg] (09/04/2024 05:19) Is this patient claustrophobic?: No REASON FOR EXAM:MULTIPLE SCLEROSIS (indicate suspected or established) PERTINENT PATIENT HISTORY: MS c/f for flare Risk factors for GADOLINIUM NEPHROGENIC SYSTEMIC SCLEROSIS: Report Status: Verified Date Reported: SEP 06, 2024 Date Verified: SEP 06, 2024 Sample Distributor E-Sig: Report: MRI brain without and with [...] Staff: ARCENIO LEYVA, Staff Radiologist Verified by wind farm support specialist for ARCENIO LEYVA /[facility] Sep 06, 2024 01:40 PM MRI C SPINE W & W/ O CONTRAST(FURTHER SEQUENCES): LUIS MANUEL PERDOMO [id number] -1945 M Exm Date: SEP 06, 2024@13:40 Req Phys: FRANCK TURNERISIAHFLOSav Pat Loc: 5-MED/TEL/09-07-2024@06:42 Img Loc: [facility] Service: [facility] SERV[facility] [place] [id number] (Case [id number] COMPLETE) MRI C SPINE W & W/O CONTRAST(FURT(MRI Detailed) CPT:00142 Contrast Media : Gadolinium Reason for Study: SEE CLINICAL HISTORY Pharmaceutical: GADOTERIDOL 279.3MG/ML 20ML INJ, 19ml Clinical History: STATUS OF PLAIN FILMS:Not performed (Provide justification for MR W/O prior plain films below.) MRI for MS MRI Screening (Required): IMPLANTED DEVICE DOCUMENTATION IMPLANTED DEVICE DOCUMENTATION NOT FOUND Does the [place] have any Cardiac Implants? None Does the have any implanted stimulators? None Does the have cochlear implants? No Does the [place] have Cerebral aneurysm clip(s)? I don't know [...] 07, 2024 Date Verified: SEP 07, 2024 Sample Distributor E-Sig: Report: EXAMINATION: MRI OF THE CERVICAL [...] Code: NO ALERT REQUIRED Primary Interpreting Staff: HUNAG TAI, Radiologist Verified by wind farm support specialist for HUANG TAI /HUANG WHEATLEY-Sav [facility] Sep 03, 2024 10:45 AM CHEST SINGLE(1) EW: LUIS MANUEL PERDOMO [id number] -1945 M Exm Date: SEP 03, 2024@10:45 Req Phys: FRANCK TURNER Pat Loc: 5-MED/TEL/09-03-2024@10:56 Img Loc: CDD RADIOLOGY Service: [place] [address] (Case [id number] COMPLETE)CHEST SINGLE(1) VIEW (RAD Detailed) CPT:08673 Proc Modifiers : PORTABLE EXAM Reason for Study: Eval volume status Clinical History: Report Status: Verified Date Reported: SEP 03, 2024 Date Verified: SEP 03, 2024 Sample Distributor E-Sig: Report: EXAMINATION: SINGLE VIEW CHEST CLINICAL [...] Interpreting Staff: HUANG TAI, Radiologist Verified by wind farm support specialist for HUANG TAI /HUANG WHEATLEY-[facility]AL[facility] Aug 29, 2024 08:[address] HEAD W/O CONT: LUIS MANUEL PERDOMO [id number] -1945 M Exm Date: AUG 29, 2024@20:28 Req Phys: FELISA COLE Loc: ED/4P-12A (Req'g Loc) Img Loc: CT SCAN Service: [place] [address] (Case [id number] COMPLETE) CT HEAD W/O CONT (CT Detailed) CPT:10489 Reason for Study: SEE CLINICAL HISTORY Clinical History: REASON FOR SEND OUT: ATTENDING PHYSICIAN NAME: New transient neurological s/s - suspected TIA HISTORY/REASON FOR EXAM: confusion Report Status: Verified Date Reported: AUG 29, 2024 Date Verified: AUG 29, 2024 Sample Distributor E-Sig: Report: HISTORY confusion COMPARISON No prior [...] Staff: ABDIRAHMAN CROW, Staff Physician Verified by wind farm support specialist for ABDIRAHMAN CROW /[facility]MAN [facility] Pathology Reports: +/- 30 days of [...] the Encounter. The data comes from all [place] treatment facilities. Date/Time Pathology Report Provider Source Sep 03, 2024 01:35 PM LR MICROBIOLOGY RE PORT: Reporting Lab: [facility] [CLIA# [id number]] [address] [place] [id number] Accession [UID]: [id number] [[id number]] Received: Sep 03, 2024@14:02 Collection sample: URINE, [...] Report Performed By: [facility] [CLIA# [id number]] [address] [place] [id number] [facility] Sep 02, 2024 06:00 PM LR MICROBIOLOGY RE PORT: Reporting Lab: [facility] [CLIA# [id number]] [address] [place], [place] [id number] Accession [UID]: [id number] [[id number]] Received: Sep 02, 2024@18:07 Collection sample: BLD CULTURE BOTTLES Collection date: Sep 02, 2024 18:00 Site/Specimen: BLOOD Provider: FRANCK TURNER Comment on specimen: L HAND Test(s) ordered: CULTURE, BLOOD................ completed: Sep 08, 2024 * BACTERIOLOGY FINAL REPORT => Sep 08, 2024 08:25 TECH CODE: [id number] Bacteriology Remark(s): Blood culture status=NO GROWTH (unless notified otherwise) 09/03/2024 AEROBIC: NO GROWTH ANAEROBIC: NO GROWTH =--=--=--=--=--=--=--=--=--=-- =--=--=--=--=--=--=--=--=--=-- =--=--=--=--=--=-- Performing Laboratory: Bacteriology Report Performed By: [facility] [CLIA# [id number]] [address] [place] [address] MAGDY CALABRESE-Sav [facility] Aug 29, 2024 10:18 PM LR MICROBIOLOGY RE PORT: Reporting Lab: [facility] [CLIA# [id number]] [address] [place] [address] Accession [UID]: [id number] [[id number]] Received: Aug 29, 2024@22:18 Collection sample: URINE, CLEAN CATCH Collection date: Aug 29, 2024 22:18 Site/Specimen: URINE Provider: FELISA COLE Test(s) ordered: CULTURE, URINE................ completed: Aug 31, 2024 09:51 * BACTERIOLOGY FINAL REPORT => Aug 31, 2024 09:51 TECH CODE: [id number] Bacteriology Remark(s): NO GROWTH 08/30/2024 <10,000 CFU/ML. 08/31/2024 =--=--=--=--=--=--=--=--=--=-- =--=--=--=--=--=--=--=--=--=-- =--=--=--=--=--=-- Performing Laboratory: Bacteriology Report Performed By: [facility] [IA# [id number]] [address] [place] [address] MAGDY CALABRESE-Sav [facility]
--- OUTSIDE RECORDS SUMMARY | 2024-09-04 06:57 | XMS_ITS | Encounter Summary ---
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 Role Phone YULISSA HENDERSON Primary Care [...] PLAN F Mar 24, 2014 PLAN F [id number] LUIS MANUEL PERDOMO PATIENT [facility] BLUECARD PREFERRED PROVIDER ORGANIZAT ION (PPO) [facility] Sep 21, 2012 [id number] LUIS MANUEL PERDOMO PATIENT [employer] ([id number]) PRESCRIPT ION [id number] Sep 21, 2012 [id number] LUIS MANUEL PERDOMO PATIENT MEDICARE (WNR) MEDICARE (M) PART B Sep 21, 2012 PART B [id number] NOEMI PERDOMO PATIENT MEDICARE (WNR) MEDICARE (M) PART A Jan 22, 2011 PART A [id number] NOEMI PERDOMO PATIENT MEDICARE PART D (WNR) MEDICARE (M) PART D Mar 24, 2014 PART D [id number] LUIS MANUEL PERDOMO PATIENT Selected Encounter This section includes the information on record at [place] for the Encounter. Date/Time Encounter Type Encounter Description Reason Provider Source Sep 04, 2024 10:57 AM [facility] IP/OBS MODERATE 35 GENERAL [...] 08:00 AM AMBULATORY - NONE [place] [facility] Sep 30, 2024 01:30 PM AMBULATORY - SURGERY [place] [facility] Active, Pending, and Scheduled Orders [...] data comes from all [place] treatment facilities. Test Date/Time Test Type Test Details Facility Name Sep 13, 2024 01:33 PM Consult Order [facility] SKILLED HOME CARE Cons In Flight Technician's Choice [facility] Lab Results: +/- [...] Type Comment Sep 09, 2024 12:16 PM [facility] GLUCOSE-HAND MONITOR CAPILLARY Specimen Type: CAPILLARY Comment: Test performed by: [id number] Meter #: [id number] Ordering Provider: FRANCK TURNER Report Released Date/Time: Sep 09, 2024 12:33 PM Reporting Lab: [address] [address] Performing Lab: [address] [address] GLUCOSE-HAND MONITOR 116 mg/dL H Sep 09, 2024 06:07 AM [facility] GLUCOSE-HAND MONITOR CAPILLARY Specime n Type: CAPILLARY Comment: Test performed by: [id number] Meter #: [id number] Ordering Provider: FRANCK TURNER Report Released Date/Time: Sep 09, 2024 08:17 AM Reporting Lab: [address] [address] Performing Lab: [address] [address] GLUCOSE-HAND MONITOR 112 mg/dL H Sep 08, 2024 09:13 PM [facility] GLUCOSE-HAND MONITOR CAPILLARY Specime n Type: CAPILLARY Comment: Test performed by: [id number] Meter #: [id number] Ordering Provider: FRANCK TURNER Report Released Date/Time: Sep 08, 2024 09:31 PM Reporting Lab: [address] [address] Performing Lab: [address] [address] GLUCOSE-HAND MONITOR 107 mg/dL H Sep 08, 2024 03:49 PM [facility] GLUCOSE-HAND MONITOR CAPILLARY Specime n Type: CAPILLARY Comment: AAMIR RN notified Test performed by: [id number] Meter #: [id number] Ordering Provider: FRANCK TURNER Report Released Date/Time: Sep 08, 2024 04:33 PM Reporting Lab: [address] [address] Performing Lab: [address] [address] GLUCOSE-HAND MONITOR 162 mg/dL H Sep 08, 2024 11:43 AM [facility] GLUCOSE-HAND MONITOR CAPILLARY Specime n Type: CAPILLARY Comment: AAMIR RN notified Test performed by: [id number] Meter #: [id number] Ordering Provider: FRANCK TURNER Report Released Date/Time: Sep 08, 2024 12:03 PM Reporting Lab: [place] [phone] Performing Lab: [address] [address] GLUCOSE-HAND MONITOR 133 mg/dL H Sep 08, 2024 06:13 AM [facility] GLUCOSE-HAND MONITOR CAPILLARY Specime n Type: CAPILLARY Comment: Test performed by: [id number] Meter #: [id number] Ordering Provider: FRANCK TURNER Report Released Date/Time: Sep 08, 2024 06:46 AM Reporting Lab: [place] [phone] Performing Lab: [address] [address] GLUCOSE-HAND MONITOR 104 mg/dL H Sep 07, 2024 07:59 PM [facility] GLUCOSE-HAND MONITOR CAPILLARY Specime n Type: CAPILLARY Comment: Test performed by: [id number] Meter #: [id number] Ordering Provider: FRANCK TURNER Report Released Date/Time: Sep 07, 2024 09:05 PM Reporting Lab: [place] [phone] Performing Lab: [address] [address] GLUCOSE-HAND MONITOR 107 mg/dL H Sep 07, 2024 04:39 PM [facility] GLUCOSE-HAND MONITOR CAPILLARY Specime n Type: CAPILLARY Comment: Test performed by: [id number] Meter #: [id number] Ordering Provider: FRANCK TURNER Report Released Date/Time: Sep 07, 2024 05:09 PM Reporting Lab: [address] [address] Performing Lab: [address] [address] GLUCOSE-HAND MONITOR 105 mg/dL H Sep 07, 2024 11:41 AM [facility] GLUCOSE-HAND MONITOR CAPILLARY Specime n Type: CAPILLARY Comment: Test performed by: [id number] Meter #: [id number] Ordering Provider: FRANCK TURNER Report Released Date/Time: Sep 07, 2024 12:41 PM Reporting Lab: [place] [phone] Performing Lab: [place] [phone] GLUCOSE-HAND MONITOR 144 mg/dL H Sep 07, 2024 05:56 AM [facility] GLUCOSE-HAND MONITOR CAPILLARY Specime n Type: CAPILLARY Comment: Test performed by: [id number] Meter #: [id number] Ordering Provider: FRANCK TURNER Report Released Date/Time: Sep 07, 2024 06:31 AM Reporting Lab: [place] [phone] Performing Lab: [place] [phone] GLUCOSE-HAND MONITOR 96 mg/dL Sep 06, 2024 08:10 PM [facility] GLUCOSE-HAND MONITOR CAPILLARY Specime n Type: CAPILLARY Comment: Test performed by: [id number] Meter #: [id number] Ordering Provider: FRANCK TURNER Report Released Date/Time: Sep 06, 2024 08:52 PM Reporting Lab: [place] [phone] Performing Lab: [place] [phone] GLUCOSE-HAND MONITOR 124 mg/dL H Sep 06, 2024 04:27 PM [facility] GLUCOSE-HAND MONITOR CAPILLARY Specime n Type: CAPILLARY Comment: Test performed by: [id number] Meter #: [id number] Ordering Provider: FRANCK TURNER Report Released Date/Time: Sep 06, 2024 05:15 PM Reporting Lab: [place] [phone] Performing Lab: [place] [phone] GLUCOSE-HAND MONITOR 107 mg/dL H Sep 06, 2024 12:12 PM [facility] GLUCOSE-HAND MONITOR CAPILLARY Specime n Type: CAPILLARY Comment: Test performed by: [id number] Meter #: [id number] Ordering Provider: FRANCK TURNER Report Released Date/Time: Sep 06, 2024 12:29 PM Reporting Lab: [address] [address] Performing Lab: [address] [address] GLUCOSE-HAND MONITOR 181 mg/dL H Sep 06, 2024 06:13 AM [facility] GLUCOSE-HAND MONITOR CAPILLARY Specime n Type: CAPILLARY Comment: Test performed by: [id number] Meter #: [id number] Ordering Provider: FRANCK TURNER Report Released Date/Time: Sep 06, 2024 06:36 AM Reporting Lab: [place] [phone] Performing Lab: [place] [phone] GLUCOSE-HAND MONITOR 102 mg/dL H Sep 05, 2024 08:47 PM [facility] GLUCOSE-HAND MONITOR CAPILLARY Specime n Type: CAPILLARY Comment: Test performed by: [id number] Meter #: [id number] Ordering Provider: FRANCK TURNER Report Released Date/Time: Sep 06, 2024 02:13 AM Reporting Lab: [address] [address] Performing Lab: [address] [address] GLUCOSE-HAND MONITOR 103 mg/dL H Sep 05, 2024 04:40 PM [facility] GLUCOSE-HAND MONITOR CAPILLARY Specime n Type: CAPILLARY Comment: AAMIR RN notified Test performed by: [id number] Meter #: [id number] Ordering Provider: FRANCK TURNER Report Released Date/Time: Sep 05, 2024 05:11 PM Reporting Lab: [address] [address] Performing Lab: [address] [address] GLUCOSE-HAND MONITOR 113 mg/dL H Sep 05, 2024 12:06 PM [facility] GLUCOSE-HAND MONITOR CAPILLARY Specime n Type: CAPILLARY Comment: Test performed by: [id number] Meter #: [id number] Ordering Provider: FRANCK TURNER Report Released Date/Time: Sep 05, 2024 12:23 PM Reporting Lab: [address] [address] Performing Lab: [address] [address] GLUCOSE-HAND MONITOR 115 mg/dL H -Sep 05, 2024 06:26 AM [facility] GLUCOSE-HAND MONITOR CAPILLARY Specime n Type: CAPILLARY Comment: AAMIR Correction Dose Test performed by: [id number] Meter #: [id number] Ordering Provider: FRANCK TURNER Report Released Date/Time: Sep 05, 2024 06:43 AM Reporting Lab: [address] [address] Performing Lab: [address] GLUCOSE-HAND MONITOR 111 mg/dL H Sep 04, 2024 08:59 PM [facility] GLUCOSE-HAND MONITOR CAPILLARY Specime n Type: CAPILLARY Comment: AAMIR RN notified Test performed by: [id number] Meter #: [id number] Ordering Provider: FRANCK TURNER Report Released Date/Time: Sep 04, 2024 09:36 PM Reporting Lab: [address] [address] Performing Lab: [address] [address] GLUCOSE-HAND MONITOR 123 mg/dL H Sep 04, 2024 04:41 PM [facility] GLUCOSE-HAND MONITOR CAPILLARY Specime n Type: CAPILLARY Comment: AAMIR RN notified Test performed by: [id number] Meter #: [id number] Ordering Provider: FRANCK TURNER Report Released Date/Time: Sep 04, 2024 05:03 PM Reporting Lab: [address] [address] Performing Lab: [address] [address] GLUCOSE-HAND MONITOR 118 mg/dL H -Sep 04, 2024 12:36 PM [facility] GLUCOSE-HAND MONITOR CAPILLARY Specime n Type: CAPILLARY Comment: AAMIR RN notified Test performed by: [id number] Meter #: [id number] Ordering Provider: FRANCK TURNER Report Released Date/Time: Sep 04, 2024 12:53 PM Reporting Lab: [place] [phone] Performing Lab: [place] [address] GLUCOSE-HAND MONITOR 129 mg/dL H -Sep 04, 2024 12:03 PM [facility] RESPIRATORY VIRUS PANEL (BIOFIRE) NASOPHARYN X Specimen Type: NASOPHARYNX Comment: ~For Test: RESPIRATORY VIRUS PANEL (BIOFIRE) ~ORDER READ BACK TO: FRANCK TURNER 09/04/24@11:30 Ordering Provider: FRANCK TURNER Report Released Date/Time: Sep 04, 2024 11:33 AM Reporting Lab: [place] [phone] Performing Lab: [place] [phone] ADENOVIRUS (BIOFIRE) Not Detected -Not D etected [...] -Not Detected Sep 04, 2024 06:55 AM [facility] MAGNESIUM PLASMA Specimen Type: PLASM A Comment: [...] Sep 03, 2024 11:10 AM Reporting Lab: [place] [id number] [facility] [address] Performing Lab: [address] [address] MAGNESIUM 1.8 mg/dL 1.6-2.6 Sep 04, 2024 06:55 AM [facility] PANEL 1 PLASMA Specimen Type: PLASM [...] Sep 03, 2024 11:10 AM Reporting Lab: [address] [address] Performing Lab: [address] [address] CREATININE 0.75 mg/dL 0.72-1.25 UREA NITROGEN 13 mg/dL 9-25 GLUCOSE 105 mg/dL H 74-100 SODIUM 128 mmol/L L 136-145 POTASSIUM 3.9 mmol/L 3.5-5.1 CHLORIDE 99 mmol/L 98-107 CO2 21 mmol/L L 22-29 CALCIUM 8.0 mg/dL L 8.4-10.2 ANION GAP 8 meq/L 3-19 eGFR (CKD-EPI) >90 Sep 04, 2024 06:02 AM [facility] GLUCOSE-HAND MONITOR CAPILLARY Specime n Type: CAPILLARY Comment: Test performed by: [id number] Meter #: [id number] Ordering Provider: FRANCK TURNER Report Released Date/Time: Sep 04, 2024 06:28 AM Reporting Lab: [address] [address] Performing Lab: [address] [address] GLUCOSE-HAND MONITOR 114 mg/dL H 71-99 Sep 03, 2024 05:19 PM [facility] GLUCOSE-HAND MONITOR CAPILLARY Specime n Type: CAPILLARY Comment: Test performed by: [id number] Meter #: [id number] Ordering Provider: FRANCK TURNER Report Released Date/Time: Sep 03, 2024 05:37 PM Reporting Lab: [address] [address] Performing Lab: [address] [address] GLUCOSE-HAND MONITOR 124 mg/dL H 71-99 Sep 03, 2024 04:41 PM [facility] GLUCOSE-HAND MONITOR CAPILLARY Specime n Type: CAPILLARY Comment: Test performed by: [id number] Meter #: [id number] Ordering Provider: FRANCK TURNER Report Released Date/Time: Sep 03, 2024 06:09 PM Reporting Lab: [address] [address] Performing Lab: [facility] [address] [facility] [address] GLUCOSE-HAND MONITOR 112 mg/dL H 71-99 Sep 03, 2024 01:35 PM [facility] CREATININE URINE Specimen Type: URINE Comment: ~Altered mental status with no identifiable cause Ordering Provider: FRANCK TURNER Report Released Date/Time: Sep 02, 2024 04:44 PM Reporting Lab: [address] [address] Performing Lab: [address] [address] CREATININE 150.9 mg/dL Sep 03, 2024 01:35 PM [facility] URINE LYTES URINE Specimen Type : URINE Comment: ~Altered mental status with no identifiable cause Ordering Provider: FRANCK TURNER Report Released Date/Time: Sep 02, 2024 04:44 PM Reporting Lab: [address] [address] Performing Lab: [address] [address] SODIUM 130 mmol/L POTASSIUM 47.6 mmol/L CHLORIDE 137 mmol/L Sep 03, 2024 01:35 PM [facility] UREA NITROGEN URINE Specimen Type : URINE Comment: ~Altered mental status with no identifiable cause Ordering Provider: FRANCK TURNER Report Released Date/Time: Sep 02, 2024 04:44 PM Reporting Lab: [address] [address] Performing Lab: [address] [address] UREA NITROGEN 320 mg/dL Sep 03, 2024 01:35 PM [facility] URINALYSIS WITH REFLEX TO CULTURE URINE Specimen Type: URINE Comment: ~Altered mental status with no identifiable cause Ordering Provider: FRANCK TURNER Report Released Date/Time: Sep 02, 2024 04:44 PM Reporting Lab: [address] [address] Performing Lab: [address] [address] URINE COLOR Yellow Colorless-Yellow APPEARANCE CLOUDY H [...] H 0-28 Sep 03, 2024 01:35 PM [facility] OSMOLALITY URINE Specimen Type: URINE Comment: ~Altered mental status with no identifiable cause Ordering Provider: FRANCK TURNER Report Released Date/Time: Sep 02, 2024 04:44 PM Reporting Lab: [place] [phone] Performing Lab: [place] [phone] OSMOLALITY 522 mosm/kg 38-1400 Sep 03, 2024 11:58 AM [facility] GLUCOSE-HAND MONITOR CAPILLARY Specime n Type: CAPILLARY Comment: AAMIR RN notified Test performed by: [id number] Meter #: [id number] Ordering Provider: FRANCK TURNER Report Released Date/Time: Sep 03, 2024 12:15 PM Reporting Lab: [address] [address] Performing Lab: [address] [address] GLUCOSE-HAND MONITOR 135 mg/dL H 71-99 Sep 03, 2024 07:09 AM [facility] GLUCOSE-HAND MONITOR CAPILLARY Specime n Type: CAPILLARY Comment: Test performed by: [id number] Meter #: [id number] Ordering Provider: FRANCK TURNER Report Released Date/Time: Sep 03, 2024 07:26 AM Reporting Lab: [address] [address] Performing Lab: [address] [address] GLUCOSE-HAND MONITOR 120 mg/dL H 71-99 Sep 03, 2024 07:05 AM [facility] CBC/PLT BLOOD Specimen Type: BLOOD No comment entered. Ordering Provider: FRANCK TURNER Report Released Date/Time: Sep 02, 2024 04:29 PM Reporting Lab: [place] [id number] [facility] [address] Performing Lab: [address] [address] WBC 6.9 10*3/uL 5.0-10.0 RBC 3.48 10*6/uL L 4.6-6.2 HGB 9.5 g/dL L 14.0-18.0 HCT 29.1 L 42.0-52.0 MCV 83.6 fL 80.0-94.0 MCH 27.3 pg 27.0-31.0 MCHC 32.6 g/dL 32.0-36.0 PLT 258 10*3/uL 150-450 MPV 10.3 fL 9.0-13.1 RDW 14.8 11.0-16.0 NRBC 0.0 0.0-0.0 Sep 03, 2024 07:05 AM [facility] MAGNESIUM PLASMA Specimen Type: PLASM A [...] Sep 02, 2024 04:29 PM Reporting Lab: [address] [address] Performing Lab: [address] [address] MAGNESIUM 1.7 mg/dL 1.6-2.6 Sep 03, 2024 07:05 AM [facility] PANEL 1 PLASMA Specimen Type: PLASM [...] Sep 02, 2024 04:29 PM Reporting Lab: [address] [address] Performing Lab: [address] [address] CREATININE 0.82 mg/dL 0.72-1.25 UREA NITROGEN 12 mg/dL 9-25 GLUCOSE 109 mg/dL H 74-100 SODIUM 129 mmol/L L 136-145 POTASSIUM 4.2 mmol/L 3.5-5.1 CHLORIDE 99 mmol/L 98-107 CO2 21 mmol/L L 22-29 CALCIUM 8.1 mg/dL L 8.4-10.2 ANION GAP 9 meq/L 3-19 eGFR (CKD-EPI) 90 Sep 03, 2024 07:05 AM [facility] GLYCOHEMOGLOBIN BLOOD Specimen Type: BLOOD Comment: Prediabetes: 5.7%-6.4% Diabetes: >= 6.5% [facility] guidelines for A1c interpretation: Glycemic control targets are based on Shared Decision Making between clinicians and patients. Criteria used to establish an A1c target recommendation can be found at https://www.[place].gov/qualityandpatientsafety/ and include the use of result accuracy [...] 8.73 and 9.27. Ref: https://ngsp.org/CAPdata.asp. The in-house EyeSpot-Shuttle[employer] D-100 analyzer has a historical CV <= 2%. Contact the laboratory for further performance characteristics of this assay. Ordering Provider: FRANCK TURNER Report Released Date/Time: Sep 02, 2024 04:29 PM Reporting Lab: [address] [address] Performing Lab: [address] [address] GLYCOHEMOGLOBIN 5.6 4.4-5.6 Sep 03, 2024 07:05 AM [facility] OSMOLALITY SERUM Specimen Type: SERUM No comment entered. Ordering Provider: FRANCK TURNER Report Released Date/Time: Sep 02, 2024 04:44 PM Reporting Lab: [address] [address] Performing Lab: [address] [address] OSMOLALITY 271 mosm/kg L 280-300 Sep 02, 2024 08:15 PM [facility] GLUCOSE-HAND MONITOR CAPILLARY Specime n Type: CAPILLARY Comment: AAMIR RN notified Test performed by: [id number] Meter #: [id number] Ordering Provider: FRANCK TURNER Report Released Date/Time: Sep 02, 2024 08:57 PM Reporting Lab: [address] [address] Performing Lab: [address] [address] GLUCOSE-HAND MONITOR 126 mg/dL H 71-99 Sep 02, 2024 06:10 PM [facility] MRSA SURVL NARES DNA NARES Specime [...] Sep 02, 2024 05:12 PM Reporting Lab: [address] [address] Performing Lab: [address] [address] MRSA SURVL NARES DNA Negative Negative Sep 02, 2024 05:36 PM [facility] GLUCOSE-HAND MONITOR CAPILLARY Specime n Type: CAPILLARY Comment: Test performed by: [id number] Meter #: [id number] Ordering Provider: FRANCK TURNER Report Released Date/Time: Sep 02, 2024 05:53 PM Reporting Lab: [address] [address] Performing Lab: [address] [address] GLUCOSE-HAND MONITOR 127 mg/dL H 71-99 Aug 29, 2024 10:04 PM [facility] URINALYSIS WITH REFLEX TO CULTURE URINE Specimen Type: URINE Comment: ~For Test: URINALYSIS WITH REFLEX TO CULTURE ~REORDER Ordering Provider: FELISA COLE Report Released Date/Time: Aug 29, 2024 09:36 PM Reporting Lab: [address] [address] Performing Lab: [address] [address] URINE COLOR Yellow Colorless-Yellow APPEARANCE Clear Clear [...] 0-28 Aug 29, 2024 08:32 PM ELICIA-Sav [facility] HIGH SENSITIVITY TROPONIN I PLASMA Specimen Ty [...] I information resource can be reached in [facility] in the Tools menu, under the [...] Aug 29, 2024 07:55 PM Reporting Lab: [address] [address] Performing Lab: [address] [address] HIGH SENSITIVITY TROPONIN I 7 4-35 Aug 29, 2024 08:32 PM [facility] CBC/PLT BLOOD Specimen Type: BLOOD No comment entered. Ordering Provider: FELISA COLE Report Released Date/Time: Aug 29, 2024 07:55 PM Reporting Lab: [address] [address] Performing Lab: [address] [address] WBC 11.2 10*3/uL H 5.0-10.0 RBC 3.97 10*6/uL L 4.6-6.2 HGB 10.9 g/dL L 14.0-18.0 HCT 33.5 L 42.0-52.0 MCV 84.4 fL 80.0-94.0 MCH 27.5 pg 27.0-31.0 MCHC 32.5 g/dL 32.0-36.0 PLT 230 10*3/uL 150-450 MPV 10.2 fL 9.0-13.1 RDW 14.6 11.0-16.0 NRBC 0.0 0.0-0.0 Aug 29, 2024 08:32 [facility] Specimen Type: PLASM A [...] I information resource can be reached in [facility] in the Tools menu, under the [...] Aug 29, 2024 07:55 PM Reporting Lab: [address] [address] Performing Lab: [address] [address] CREATININE 0.85 mg/dL 0.72-1.25 UREA NITROGEN 15 [...] 04, 2024 10:21 PM 0 [place] Sep 04, 2024 08:38 PM 99.2 F 86 /min 127/68 mm[Hg] 18 /min 93 % 0 [place] Sep 04, 2024 07:06 PM 1 [place] Sep 04, 2024 06:44 PM 2 [place] Sep 04, 2024 06:39 PM 99.9 F 76 /min 154/68 mm[Hg] 90 % [place] Advance Directives: All historical and current Section [...] 08, 2024 ADVANCE DIRECTIVE DISCUSSION [facility] Radiology Reports: +/- 30 days [...] BRAIN W & W/O: LUIS MANUEL PERDOMO [id number] -1945 M Exm Date: SEP 06, 2024@13:40 Req Phys: FRANCK TURNER [facility] Loc: 5-MED/TEL/09-06-2024@19:09 Img Loc: [facility] Service: [place] [address] (Case [id number] COMPLETE) MRI BRAIN W & W/O (MRI Detailed) CPT:21318 Contrast Media : Gadolinium Reason for Study: SEE CLINICAL HISTORY Pharmaceutical: GADOTERIDOL 279.3MG/ML 20ML INJ, 19ml Clinical History: MRI Screening (Required): IMPLANTED DEVICE DOCUMENTATION IMPLANTED DEVICE DOCUMENTATION NOT FOUND Does the have any Cardiac Implants? None Does the Success have any implanted stimulators? None Does the have cochlear implants? No Does the have Cerebral aneurysm clip(s)? I don't know Does the Success have any shrapnel? I don't know If [...] 06, 2024 Date Verified: SEP 06, 2024 Certified Surgical First Assistant E-Sig: Report: MRI brain without and [...] Staff: ARCENIO LEYVA, Staff Radiologist Verified by special services agent for ARCENIO LEYVA /ARCENIO AVILA-[facility] Sep 06, 2024 01:40 PM MRI C SPINE W & W/ O CONTRAST(FURTHER SEQUENCES): LUIS MANUEL PERDOMO [id number] -1945 M Exm Date: SEP 06, 2024@13:40 Req Phys: FRANCK TURNER Pat Loc: 5-MED/TEL/09-07-2024@06:42 Img Loc: [facility] Service: [facility] [place] [id number] (Case [id number] COMPLETE) MRI C SPINE W & W/O CONTRAST(FURT(MRI Detailed) CPT:28168 Contrast Media : Gadolinium Reason for Study: [...] the have cochlear implants? No Does the Success have Cerebral aneurysm clip(s)? I don't know Does the Success have any shrapnel? I don't know If yes, where in your body? Please list other implants not listed above: MRI table has a weight limit of 551 lbs. Success's Weight: *212 lb [96.16 kg] (09/04/2024 05:19) Is this patient claustrophobic?: No REASON FOR EXAM: MULTIPLE SCLEROSIS (indicate suspected or established) PERTINENT PATIENT HISTORY: MS c/f flare Risk factors for GADOLINIUM NEPHROGENIC SYSTEMIC SCLEROSIS: Report Status: Verified Date Reported: SEP 07, 2024 Date Verified: SEP 07, 2024 Certified Surgical First Assistant E-Sig: Report: EXAMINATION: MRI OF THE [...] Interpreting Staff: HUANG TAI, Radiologist Verified by special services agent for HUANG TAI /HUANG WHEATLEY-Sav [facility] Sep 03, 2024 10:45 AM CHEST SINGLE(1) EW: LUIS MANUEL PERDOMO [id number] -1945 M Exm Date: SEP 03, 2024@10:45 Req Phys: FRANCK TURNER [facility] Loc: 5-MED/TEL/09-03-2024@10:56 Img Loc: CDD RADIOLOGY Service: [place] [address] (Case [id number] COMPLETE)CHEST SINGLE(1) VIEW (RAD Detailed) CPT:88472 Proc Modifiers : PORTABLE EXAM Reason for Study: Eval volume status Clinical History: Report Status: Verified Date Reported: SEP 03, 2024 Date Verified: SEP 03, 2024 Certified Surgical First Assistant E-Sig: Report: EXAMINATION: SINGLE VIEW CHEST [...] Interpreting Staff: HUANG TAI, Radiologist Verified by special services agent for HUANG TAI /HUANG WHEATLEY-CDD [facility] Aug 29, 2024 08:[address] HEAD W/O CONT: LUIS MANUEL PERDOMO [id number] -1945 M Exm Date: AUG 29, 2024@20:28 Req Phys: FELISA COLE Loc: ED/4P-12A (Req'g Loc) Img Loc: CT SCAN Service: [place] [address] (Case [id number] COMPLETE) CT HEAD W/O CONT (CT Detailed) CPT:91103 Reason for Study: SEE CLINICAL HISTORY Clinical History: REASON FOR SEND OUT: ATTENDING PHYSICIAN NAME: New transient neurological s/s - suspected TIA HISTORY/REASON FOR EXAM: confusion Report Status: Verified Date Reported: AUG 29, 2024 Date Verified: AUG 29, 2024 Certified Surgical First Assistant E-Sig: Report: HISTORY confusion COMPARISON No [...] Staff: ABDIRAHMAN CROW, Staff Physician Verified by special services agent for ABDIRAHMAN CROW /ABDIRAHMAN ROJAS-D [facility] Pathology Reports: +/- 30 days of the [...] Reporting Lab: [facility] [CLIA# [id number]] [address] [place] [id number] Accession [UID]: [id number] [[id number]] Received: Sep 03, 2024@14:02 Collection sample: URINE, [...] Performed By: [facility] [CLIA# [id number]] [address] [place] [id number] MAGDY CALABRESE-CDD [facility] Sep 02, 2024 06:00 PM LR MICROBIOLOGY RE PORT: Reporting Lab: [facility] [CLIA# [id number]] [address] [place], [place] [id number] Accession [UID]: [id number] [[id number]] Received: Sep 02, 2024@18:07 Collection sample: BLD CULTURE BOTTLES Collection date: Sep 02, 2024 18:00 Site/Specimen: BLOOD Provider: FRANCK TURNER Comment on specimen: L HAND Test(s) ordered: CULTURE, BLOOD................ completed: Sep 08, 2024 * BACTERIOLOGY FINAL REPORT => Sep 08, 2024 08:25 TECH CODE: [id number] Bacteriology Remark(s): Blood culture status=NO GROWTH (unless notified otherwise) 09/03/2024 AEROBIC: NO GROWTH ANAEROBIC: NO GROWTH =--=--=--=--=--=--=--=--=--=-- =--=--=--=--=--=--=--=--=--=-- =--=--=--=--=--=-- Performing Laboratory: Bacteriology Report Performed By: [facility] [CLIA# [id number]] [address] [place] [address] MAGDY CALABRESE [facility] Aug 29, 2024 10:18 PM LR MICROBIOLOGY RE PORT: Reporting Lab: [facility] [CLIA# [id number]] [address] [place] [address] Accession [UID]: [id number] [[id number]] Received: Aug 29, 2024@22:18 Collection sample: URINE, CLEAN CATCH Collection date: Aug 29, 2024 22:18 Site/Specimen: URINE Provider: FELISA COLE Test(s) ordered: CULTURE, URINE................ completed: Aug 31, 2024 09:51 * BACTERIOLOGY FINAL REPORT => Aug 31, 2024 09:51 TECH CODE: [id number] Bacteriology Remark(s): NO GROWTH 08/30/2024 <10,000 CFU/ML. 08/31/2024 =--=--=--=--=--=--=--=--=--=-- =--=--=--=--=--=--=--=--=--=-- =--=--=--=--=--=-- Performing Laboratory: Bacteriology Report Performed By: [facility] [CLIA# [id number]] [address] [place] [address] MAGDY CALABRESE-Sav [facility]
--- OUTSIDE RECORDS SUMMARY | 2024-09-04 08:28 | XMS_ITS | Encounter Summary ---
Author Name [facility] [place] [facility] [place] [facility] [place] Address [address] [place] [address] Care Team Providers Care [employer] Art[employer] Officer Name Role Phone YULISSA HENDERSON Primary [...] PLAN F Mar 24, 2014 PLAN F [id number] [phone] LUIS MANUEL PERDOMO PATIENT [facility] [place] BLUECARD PREFERRED PROVIDER ORGANIZAT ION (PPO) [facility] Sep 21, 2012 [id number] LUIS MANUEL PERDOMO PATIENT [employer] ([id number]) PRESCRIPT ION WL3A Sep 21, 2012 [id number] [phone] LUIS MANUEL PERDOMO PATIENT MEDICARE (WNR) MEDICARE (M) PART B Sep 21, 2012 PART B [id number] NOEMI PERDOMO PATIENT MEDICARE (WNR) MEDICARE (M) PART A Jan 22, 2011 PART A [id number] NOEMI PERDOMO PATIENT MEDICARE PART D (WNR) MEDICARE (M) PART D Mar 24, 2014 PART D [id number] LUIS MANUEL PERDOMO PATIENT Selected Encounter This section includes the information on record at [place] for the Encounter. Date/Time Encounter Type Encounter Description Reason Provider Source Sep 04, 2024 12:28 PM [facility] IP/OBS SF/LOW 25 NEUROSURGERY SISSY BARBER R IHE Encounter Template Text not used by [place] Plan of Treatment: Future Appointments (+ 6 [...] 08:00 AM AMBULATORY - NONE [place] [facility] Sep 30, 2024 01:30 PM AMBULATORY - SURGERY [place] [facility] Active, Pending, and Scheduled Orders This section [...] Sep 13, 2024 01:33 PM Consult Order [facility] SKILLED HOME CARE Cons Microfilm Operator's Choice [facility] Lab Results: +/- 30 days [...] 09, 2024 12:16 PM [facility] GLUCOSE-HAND MONITOR CAPILLARY Specimen Type: CAPILLARY Comment: Test performed by: [id number] Meter #: [id number] Ordering Provider: FRANCK TURNER Report Released Date/Time: Sep 09, 2024 12:33 PM Reporting Lab: [address] [address] Performing Lab: [address] [address] GLUCOSE-HAND MONITOR 116 mg/dL H Sep 09, 2024 06:07 AM [facility] GLUCOSE-HAND MONITOR CAPILLARY Specime n Type: CAPILLARY Comment: Test performed by: [id number] Meter #: [id number] Ordering Provider: FRANCK TURNER Report Released Date/Time: Sep 09, 2024 08:17 AM Reporting Lab: [address] [address] Performing Lab: [address] [address] GLUCOSE-HAND MONITOR 112 mg/dL H Sep 08, 2024 09:13 PM [facility] GLUCOSE-HAND MONITOR CAPILLARY Specime n Type: CAPILLARY Comment: Test performed by: [id number] Meter #: [id number] Ordering Provider: FRANCK TURNER Report Released Date/Time: Sep 08, 2024 09:31 PM Reporting Lab: [address] [address] Performing Lab: [address] [address] GLUCOSE-HAND MONITOR 107 mg/dL H Sep 08, 2024 03:49 PM [facility] GLUCOSE-HAND MONITOR CAPILLARY Specime n Type: CAPILLARY Comment: AAMIR RN notified Test performed by: [id number] Meter #: [id number] Ordering Provider: FRANCK TURNER Report Released Date/Time: Sep 08, 2024 04:33 PM Reporting Lab: [address] [address] Performing Lab: [address] [address] GLUCOSE-HAND MONITOR 162 mg/dL H Sep 08, 2024 11:43 AM [facility] GLUCOSE-HAND MONITOR CAPILLARY Specime n Type: CAPILLARY Comment: AAMIR RN notified Test performed by: [id number] Meter #: [id number] Ordering Provider: FRANCK TURNER Report Released Date/Time: Sep 08, 2024 12:03 PM Reporting Lab: [place] [phone] Performing Lab: [address] [address] GLUCOSE-HAND MONITOR 133 mg/dL H Sep 08, 2024 06:13 AM [facility] GLUCOSE-HAND MONITOR CAPILLARY Specime n Type: CAPILLARY Comment: Test performed by: [id number] Meter #: [id number] Ordering Provider: FRANCK TURNER Report Released Date/Time: Sep 08, 2024 06:46 AM Reporting Lab: [place] [phone] Performing Lab: [address] [address] GLUCOSE-HAND MONITOR 104 mg/dL H Sep 07, 2024 07:59 PM [facility] GLUCOSE-HAND MONITOR CAPILLARY Specime n Type: CAPILLARY Comment: Test performed by: [id number] Meter #: [id number] Ordering Provider: FRANCK TURNER Report Released Date/Time: Sep 07, 2024 09:05 PM Reporting Lab: [place] [phone] Performing Lab: [address] [address] GLUCOSE-HAND MONITOR 107 mg/dL H Sep 07, 2024 04:39 PM [facility] GLUCOSE-HAND MONITOR CAPILLARY Specime n Type: CAPILLARY Comment: Test performed by: [id number] Meter #: [id number] Ordering Provider: FRANCK TURNER Report Released Date/Time: Sep 07, 2024 05:09 PM Reporting Lab: [address] [address] Performing Lab: [address] [address] GLUCOSE-HAND MONITOR 105 mg/dL H Sep 07, 2024 11:41 AM [facility] GLUCOSE-HAND MONITOR CAPILLARY Specime n Type: CAPILLARY Comment: Test performed by: [id number] Meter #: [id number] Ordering Provider: FRANCK TURNER Report Released Date/Time: Sep 07, 2024 12:41 PM Reporting Lab: [place] [phone] Performing Lab: [address] [address] GLUCOSE-HAND MONITOR 144 mg/dL H Sep 07, 2024 05:56 AM [facility] GLUCOSE-HAND MONITOR CAPILLARY Specime n Type: CAPILLARY Comment: Test performed by: [id number] Meter #: [id number] Ordering Provider: FRANCK TURNER Report Released Date/Time: Sep 07, 2024 06:31 AM Reporting Lab: [place] [phone] Performing Lab: [place] [phone] GLUCOSE-HAND MONITOR 96 mg/dL Sep 06, 2024 08:10 PM [facility] GLUCOSE-HAND MONITOR CAPILLARY Specime n Type: CAPILLARY Comment: Test performed by: [id number] Meter #: [id number] Ordering Provider: FRANCK TURNER Report Released Date/Time: Sep 06, 2024 08:52 PM Reporting Lab: [place] [phone] Performing Lab: [place] [phone] GLUCOSE-HAND MONITOR 124 mg/dL H Sep 06, 2024 04:27 PM [facility] GLUCOSE-HAND MONITOR CAPILLARY Specime n Type: CAPILLARY Comment: Test performed by: [id number] Meter #: [id number] Ordering Provider: FRANCK TURNER Report Released Date/Time: Sep 06, 2024 05:15 PM Reporting Lab: [place] [phone] Performing Lab: [address] [address] GLUCOSE-HAND MONITOR 107 mg/dL H Sep 06, 2024 12:12 PM [facility] GLUCOSE-HAND MONITOR CAPILLARY Specime n Type: CAPILLARY Comment: Test performed by: [id number] Meter #: [id number] Ordering Provider: FRANCK TURNER Report Released Date/Time: Sep 06, 2024 12:29 PM Reporting Lab: [address] [address] Performing Lab: [address] [address] GLUCOSE-HAND MONITOR 181 mg/dL H Sep 06, 2024 06:13 AM [facility] GLUCOSE-HAND MONITOR CAPILLARY Specime n Type: CAPILLARY Comment: Test performed by: [id number] Meter #: [id number] Ordering Provider: FRANCK TURNER Report Released Date/Time: Sep 06, 2024 06:36 AM Reporting Lab: [place] [phone] Performing Lab: [place] [phone] GLUCOSE-HAND MONITOR 102 mg/dL H Sep 05, 2024 08:47 PM [facility] GLUCOSE-HAND MONITOR CAPILLARY Specime n Type: CAPILLARY Comment: Test performed by: [id number] Meter #: [id number] Ordering Provider: FRANCK TURNER Report Released Date/Time: Sep 06, 2024 02:13 AM Reporting Lab: [address] [address] Performing Lab: [place] [phone] GLUCOSE-HAND MONITOR 103 mg/dL H Sep 05, 2024 04:40 PM [facility] GLUCOSE-HAND MONITOR CAPILLARY Specime n Type: CAPILLARY Comment: AAMIR RN notified Test performed by: [id number] Meter #: [id number] Ordering Provider: FRANCK TURNER Report Released Date/Time: Sep 05, 2024 05:11 PM Reporting Lab: [address] [address] Performing Lab: [address] [address] GLUCOSE-HAND MONITOR 113 mg/dL H Sep 05, 2024 12:06 PM [facility] GLUCOSE-HAND MONITOR CAPILLARY Specime n Type: CAPILLARY Comment: Test performed by: [id number] Meter #: [id number] Ordering Provider: FRANCK TURNER Report Released Date/Time: Sep 05, 2024 12:23 PM Reporting Lab: [address] [address] Performing Lab: [address] [address] GLUCOSE-HAND MONITOR 115 mg/dL H -Sep 05, 2024 06:26 AM [facility] GLUCOSE-HAND MONITOR CAPILLARY Specime n Type: CAPILLARY Comment: AAMIR Correction Dose Test performed by: [id number] Meter #: [id number] Ordering Provider: FRANCK TURNER Report Released Date/Time: Sep 05, 2024 06:43 AM Reporting Lab: [address] [address] Performing Lab: [address] GLUCOSE-HAND MONITOR 111 mg/dL H Sep 04, 2024 08:59 PM [facility] GLUCOSE-HAND MONITOR CAPILLARY Specime n Type: CAPILLARY Comment: AAMIR RN notified Test performed by: [id number] Meter #: [id number] Ordering Provider: FRANCK TURNER Report Released Date/Time: Sep 04, 2024 09:36 PM Reporting Lab: [address] [address] Performing Lab: [address] [address] GLUCOSE-HAND MONITOR 123 mg/dL H Sep 04, 2024 04:41 PM [facility] GLUCOSE-HAND MONITOR CAPILLARY Specime n Type: CAPILLARY Comment: AAMIR RN notified Test performed by: [id number] Meter #: [id number] Ordering Provider: FRANCK TURNER Report Released Date/Time: Sep 04, 2024 05:03 PM Reporting Lab: [address] [address] Performing Lab: [address] [address] GLUCOSE-HAND MONITOR 118 mg/dL H Sep 04, 2024 12:36 PM [facility] GLUCOSE-HAND MONITOR CAPILLARY Specime n Type: CAPILLARY Comment: AAMIR RN notified Test performed by: [id number] Meter #: [id number] Ordering Provider: FRANCK TURNER Report Released Date/Time: Sep 04, 2024 12:53 PM Reporting Lab: [address] [address] Performing Lab: [place] [phone] GLUCOSE-HAND MONITOR 129 mg/dL H Sep 04, 2024 12:03 PM [facility] RESPIRATORY VIRUS PANEL (BIOFIRE) NASOPHARYN X Specimen Type: NASOPHARYNX Comment: ~For Test: RESPIRATORY VIRUS PANEL (BIOFIRE) ~ORDER READ BACK TO: FRANCK TURNER 09/04/24@11:30 Ordering Provider: FRANCK TURNER Report Released Date/Time: Sep 04, 2024 11:33 AM Reporting Lab: [place] [phone] Performing Lab: [place] [phone] ADENOVIRUS (BIOFIRE) Not Detected -Not D etected [...] -Not Detected Sep 04, 2024 06:55 AM [facility] MAGNESIUM PLASMA Specimen Type: PLASM [...] Sep 03, 2024 11:10 AM Reporting Lab: [place] [id number] [facility] [address] Performing Lab: [address] [address] MAGNESIUM 1.8 mg/dL 1.6-2.6 Sep 04, 2024 06:55 AM [facility] PANEL 1 PLASMA Specimen Type: [...] Sep 03, 2024 11:10 AM Reporting Lab: [address] [address] Performing Lab: [address] [address] CREATININE 0.75 mg/dL 0.72-1.25 UREA NITROGEN 13 mg/dL 9-25 GLUCOSE 105 mg/dL H 74-100 SODIUM 128 mmol/L L 136-145 POTASSIUM 3.9 mmol/L 3.5-5.1 CHLORIDE 99 mmol/L 98-107 CO2 21 mmol/L L 22-29 CALCIUM 8.0 mg/dL L 8.4-10.2 ANION GAP 8 meq/L 3-19 eGFR (CKD-EPI) >90 Sep 04, 2024 06:02 AM [facility] GLUCOSE-HAND MONITOR CAPILLARY Specime n Type: CAPILLARY Comment: Test performed by: [id number] Meter #: [id number] Ordering Provider: FRANCK TURNER Report Released Date/Time: Sep 04, 2024 06:28 AM Reporting Lab: [address] [address] Performing Lab: [address] [address] GLUCOSE-HAND MONITOR 114 mg/dL H 71-99 Sep 03, 2024 05:19 PM [facility] GLUCOSE-HAND MONITOR CAPILLARY Specime n Type: CAPILLARY Comment: Test performed by: [id number] Meter #: [id number] Ordering Provider: FRANCK TURNER Report Released Date/Time: Sep 03, 2024 05:37 PM Reporting Lab: [address] [address] Performing Lab: [address] [address] GLUCOSE-HAND MONITOR 124 mg/dL H 71-99 Sep 03, 2024 04:41 PM [facility] GLUCOSE-HAND MONITOR CAPILLARY Specime n Type: CAPILLARY Comment: Test performed by: [id number] Meter #: [id number] Ordering Provider: FRANCK TURNER Report Released Date/Time: Sep 03, 2024 06:09 PM Reporting Lab: [address] [address] Performing Lab: [address] [address] GLUCOSE-HAND MONITOR 112 mg/dL H 71-99 Sep 03, 2024 01:35 PM [facility] CREATININE URINE Specimen Type: URINE Comment: ~Altered mental status with no identifiable cause Ordering Provider: FRANCK TURNER Report Released Date/Time: Sep 02, 2024 04:44 PM Reporting Lab: [address] [address] Performing Lab: [address] [address] CREATININE 150.9 mg/dL Sep 03, 2024 01:35 PM [facility] URINE LYTES URINE Specimen Type : URINE Comment: ~Altered mental status with no identifiable cause Ordering Provider: FRANCK TURNER Report Released Date/Time: Sep 02, 2024 04:44 PM Reporting Lab: [address] [address] Performing Lab: [address] [address] SODIUM 130 mmol/L POTASSIUM 47.6 mmol/L CHLORIDE 137 mmol/L Sep 03, 2024 01:35 PM [facility] UREA NITROGEN URINE Specimen Type : URINE Comment: ~Altered mental status with no identifiable cause Ordering Provider: FRANCK TURNER Report Released Date/Time: Sep 02, 2024 04:44 PM Reporting Lab: [address] [address] Performing Lab: [address] [address] UREA NITROGEN 320 mg/dL Sep 03, 2024 01:35 PM [facility] URINALYSIS WITH REFLEX TO CULTURE URINE Specimen Type: URINE Comment: ~Altered mental status with no identifiable cause Ordering Provider: FRANCK TURNER Report Released Date/Time: Sep 02, 2024 04:44 PM Reporting Lab: [address] [address] Performing Lab: [address] [address] URINE COLOR Yellow Colorless-Yellow APPEARANCE CLOUDY H [...] H 0-28 Sep 03, 2024 01:35 PM [facility] OSMOLALITY URINE Specimen Type: URINE Comment: ~Altered mental status with no identifiable cause Ordering Provider: FRANCK TURNER Report Released Date/Time: Sep 02, 2024 04:44 PM Reporting Lab: [address] [address] Performing Lab: [place] [phone] OSMOLALITY 522 mosm/kg 38-1400 Sep 03, 2024 11:58 AM [facility] GLUCOSE-HAND MONITOR CAPILLARY Specime n Type: CAPILLARY Comment: AAMIR RN notified Test performed by: [id number] Meter #: [id number] Ordering Provider: FRANCK TURNER Report Released Date/Time: Sep 03, 2024 12:15 PM Reporting Lab: [address] [address] Performing Lab: [address] [address] GLUCOSE-HAND MONITOR 135 mg/dL H 71-99 Sep 03, 2024 07:09 AM [facility] GLUCOSE-HAND MONITOR CAPILLARY Specime n Type: CAPILLARY Comment: Test performed by: [id number] Meter #: [id number] Ordering Provider: FRANCK TURNER Report Released Date/Time: Sep 03, 2024 07:26 AM Reporting Lab: [address] [address] Performing Lab: [address] [address] GLUCOSE-HAND MONITOR 120 mg/dL H 71-99 Sep 03, 2024 07:05 AM [facility] CBC/PLT BLOOD Specimen Type: BLOOD No comment entered. Ordering Provider: FRANCK TURNER Report Released Date/Time: Sep 02, 2024 04:29 PM Reporting Lab: [place] [id number] [facility] [address] Performing Lab: [address] [address] WBC 6.9 10*3/uL 5.0-10.0 RBC 3.48 10*6/uL L 4.6-6.2 HGB 9.5 g/dL L 14.0-18.0 HCT 29.1 L 42.0-52.0 MCV 83.6 fL 80.0-94.0 MCH 27.3 pg 27.0-31.0 MCHC 32.6 g/dL 32.0-36.0 PLT 258 10*3/uL 150-450 MPV 10.3 fL 9.0-13.1 RDW 14.8 11.0-16.0 NRBC 0.0 0.0-0.0 Sep 03, 2024 07:05 AM [facility] MAGNESIUM PLASMA Specimen Type: PLASM [...] 02, 2024 04:29 PM Reporting Lab: [address] [address] Performing Lab: [address] [address] MAGNESIUM 1.7 mg/dL 1.6-2.6 Sep 03, 2024 07:05 AM [facility] PANEL 1 PLASMA Specimen Type: [...] 02, 2024 04:29 PM Reporting Lab: [address] [address] Performing Lab: [address] [address] CREATININE 0.82 mg/dL 0.72-1.25 UREA NITROGEN 12 mg/dL 9-25 GLUCOSE 109 mg/dL H 74-100 SODIUM 129 mmol/L L 136-145 POTASSIUM 4.2 mmol/L 3.5-5.1 CHLORIDE 99 mmol/L 98-107 CO2 21 mmol/L L 22-29 CALCIUM 8.1 mg/dL L 8.4-10.2 ANION GAP 9 meq/L 3-19 eGFR (CKD-EPI) 90 Sep 03, 2024 07:05 AM [facility] GLYCOHEMOGLOBIN BLOOD Specimen Type: BLOOD Comment: Prediabetes: 5.7%-6.4% Diabetes: >= 6.5% [facility] guidelines for A1c interpretation: Glycemic [...] 8.73 and 9.27. Ref: https://ngsp.org/CAPdata.asp. The in-house Lemko-Arideas D-100 analyzer has a historical CV <= 2%. Contact the laboratory for further performance characteristics of this assay. Ordering Provider: FRANCK TURNER Report Released Date/Time: Sep 02, 2024 04:29 PM Reporting Lab: [address] [address] Performing Lab: [address] [address] GLYCOHEMOGLOBIN 5.6 4.4-5.6 Sep 03, 2024 07:05 AM [facility] OSMOLALITY SERUM Specimen Type: SERUM No comment entered. Ordering Provider: FRANCK TURNER Report Released Date/Time: Sep 02, 2024 04:44 PM Reporting Lab: [address] [address] Performing Lab: [address] [address] OSMOLALITY 271 mosm/kg L 280-300 Sep 02, 2024 08:15 PM [facility] GLUCOSE-HAND MONITOR CAPILLARY Specime n Type: CAPILLARY Comment: AAMIR RN notified Test performed by: [id number] Meter #: [id number] Ordering Provider: FRANCK TURNER Report Released Date/Time: Sep 02, 2024 08:57 PM Reporting Lab: [address] [address] Performing Lab: [address] [address] GLUCOSE-HAND MONITOR 126 mg/dL H 71-99 Sep 02, 2024 06:10 PM [facility] MRSA SURVL NARES DNA NARES [...] 02, 2024 05:12 PM Reporting Lab: [address] [address] Performing Lab: [address] [address] MRSA SURVL NARES DNA Negative Negative Sep 02, 2024 05:36 PM [facility] GLUCOSE-HAND MONITOR CAPILLARY Specime n Type: CAPILLARY Comment: Test performed by: [id number] Meter #: [id number] Ordering Provider: FRANCK TURNER Report Released Date/Time: Sep 02, 2024 05:53 PM Reporting Lab: [address] [address] Performing Lab: [address] [address] GLUCOSE-HAND MONITOR 127 mg/dL H 71-99 Aug 29, 2024 10:04 PM [facility] URINALYSIS WITH REFLEX TO CULTURE URINE Specimen Type: URINE Comment: ~For Test: URINALYSIS WITH REFLEX TO CULTURE ~REORDER Ordering Provider: FELISA COLE Report Released Date/Time: Aug 29, 2024 09:36 PM Reporting Lab: [address] [address] Performing Lab: [address] [address] URINE COLOR Yellow Colorless-Yellow APPEARANCE Clear Clear [...] 0-28 Aug 29, 2024 08:32 PM [facility] HIGH SENSITIVITY TROPONIN I PLASMA Specimen Ty [...] I information resource can be reached in [facility] in the Tools menu, under [...] 29, 2024 07:55 PM Reporting Lab: [address] [address] Performing Lab: [address] [address] HIGH SENSITIVITY TROPONIN I 7 4-35 Aug 29, 2024 08:32 PM [facility] CBC/PLT BLOOD Specimen Type: BLOOD No comment entered. Ordering Provider: FELISA COLE Report Released Date/Time: Aug 29, 2024 07:55 PM Reporting Lab: [address] [address] Performing Lab: [address] [address] WBC 11.2 10*3/uL H 5.0-10.0 RBC 3.97 10*6/uL L 4.6-6.2 HGB 10.9 g/dL L 14.0-18.0 HCT 33.5 L 42.0-52.0 MCV 84.4 fL 80.0-94.0 MCH 27.5 pg 27.0-31.0 MCHC 32.5 g/dL 32.0-36.0 PLT 230 10*3/uL 150-450 MPV 10.2 fL 9.0-13.1 RDW 14.6 11.0-16.0 NRBC 0.0 0.0-0.0 Aug 29, 2024 08:32 PM [facility] PANEL 5 PLASMA Specimen Type: [...] I information resource can be reached in [facility] in the Tools menu, under [...] 29, 2024 07:55 PM Reporting Lab: [address] [address] Performing Lab: [address] [address] CREATININE 0.85 mg/dL 0.72-1.25 UREA NITROGEN 15 [...] 04, 2024 10:21 PM 0 [place] Sep 04, 2024 08:38 PM 99.2 F 86 /min 127/68 mm[Hg] 18 /min 93 % 0 [place] Sep 04, 2024 07:06 PM 1 [place] Sep 04, 2024 06:44 PM 2 [place] Sep 04, 2024 06:39 PM 99.9 F 76 /min 154/68 mm[Hg] 90 % [place] [facility] Advance Directives: All historical and current Section [...] 08, 2024 ADVANCE DIRECTIVE DISCUSSION [facility] Radiology Reports: +/- 30 days of the [...] BRAIN W & W/O: LUIS MANUEL PERDOMO [id number] -1945 M Exm Date: SEP 06, 2024@13:40 Req Phys: FRANCK TURNER Pat Loc: 5-MED/TEL/09-06-2024@19:09 Img Loc: [facility] Service: [place] [address] (Case [id number] COMPLETE) MRI BRAIN W & W/O (MRI Detailed) CPT:39125 Contrast Media : Gadolinium Reason for Study: SEE CLINICAL HISTORY Pharmaceutical: GADOTERIDOL 279.3MG/ML 20ML INJ, 19ml Clinical History: MRI Screening (Required): IMPLANTED DEVICE DOCUMENTATION IMPLANTED DEVICE DOCUMENTATION NOT FOUND Does the [facility] have any Cardiac Implants? None Does the [facility] have any implanted stimulators? None Does the [facility] have cochlear implants? No Does the [facility] have Cerebral aneurysm clip(s)? I don't know Does the have any shrapnel? I don't know If yes, where in your body? Please list other implants not listed above: MRI table has a weight limit of 551 lbs. Surfside's Weight: *212 lb [96.16 kg] (09/04/2024 05:19) Is this patient claustrophobic?: No REASON FOR EXAM:MULTIPLE SCLEROSIS (indicate suspected or established) PERTINENT PATIENT HISTORY: MS c/f for flare Risk factors for GADOLINIUM NEPHROGENIC SYSTEMIC SCLEROSIS: Report Status: Verified Date Reported: SEP 06, 2024 Date Verified: SEP 06, 2024 Screening Specialist E-Sig: Report: MRI brain without and with [...] ARCENIO LEYVA, Staff Radiologist Verified by medical superintendent for ARCENIO LEYVA /ARCENIO AVILAWILSON-[facility] Sep 06, 2024 01:40 PM MRI C SPINE W & W/ O CONTRAST(FURTHER SEQUENCES): LUIS MANUEL PERDOMO [id number] -1945 M Exm Date: SEP 06, 2024@13:40 Req Phys: FRANCK TURNER Pat Loc: 5-MED/TEL/09-07-2024@06:42 Img Loc: [facility] Service: [place] [address] (Case [id number] COMPLETE) MRI C SPINE W & W/O CONTRAST(FURT(MRI Detailed) CPT:57338 Contrast Media : Gadolinium Reason for Study: SEE CLINICAL HISTORY Pharmaceutical: GADOTERIDOL 279.3MG/ML 20ML INJ, 19ml Clinical History: STATUS OF PLAIN FILMS:Not performed (Provide justification for MR W/O prior plain films below.) MRI for MS MRI Screening (Required): IMPLANTED DEVICE DOCUMENTATION IMPLANTED DEVICE DOCUMENTATION NOT FOUND Does the [facility]fside have any Cardiac Implants? None Does the [facility] have any implanted stimulators? None Does the [facility] have cochlear implants? No Does the [facility] have Cerebral aneurysm clip(s)? I don't know [...] 07, 2024 Date Verified: SEP 07, 2024 Screening Specialist E-Sig: Report: EXAMINATION: MRI OF THE CERVICAL [...] Staff: HUANG TAI, Radiologist Verified by medical superintendent for HUANG TAI /HUANG [facility] Sep 03, 2024 10:45 AM CHEST SINGLE(1) EW: LUIS MANUEL PERDOMO [id number] -1945 M Exm Date: SEP 03, 2024@10:45 Req Phys: FRANCK TURNER [facility] Loc: 5-MED/TEL/09-03-2024@10:56 Img Loc: [facility] RADIOLOGY Service: [place] [address] (Case [id number] COMPLETE)CHEST SINGLE(1) VIEW (RAD Detailed) CPT:11018 Proc Modifiers : PORTABLE EXAM Reason for Study: Eval volume status Clinical History: Report Status: Verified Date Reported: SEP 03, 2024 Date Verified: SEP 03, 2024 Screening Specialist E-Sig: Report: EXAMINATION: SINGLE VIEW CHEST [...] Staff: HUANG TAI, Radiologist Verified by medical superintendent for HUANG TAI /HUANG WHEATLEY-CDD [facility] Aug 29, 2024 08:[address] HEAD W/O CONT: LUIS MANUEL PERDOMO [id number] -1945 M Exm Date: AUG 29, 2024@20:28 Req Phys: FELISA COLE Loc: ED/4P-12A (Req'g Loc) Img Loc: CT SCAN Service: [place] [address] (Case [id number] COMPLETE) CT HEAD W/O CONT (CT Detailed) CPT:58561 Reason for Study: SEE CLINICAL HISTORY Clinical History: REASON FOR SEND OUT: ATTENDING PHYSICIAN NAME: New transient neurological s/s - suspected TIA HISTORY/REASON FOR EXAM: confusion Report Status: Verified Date Reported: AUG 29, 2024 Date Verified: AUG 29, 2024 Screening Specialist E-Sig: Report: HISTORY confusion COMPARISON No [...] ABDIRAHMAN CROW, Staff Physician Verified by medical superintendent for ABDIRAHMAN CROW /ABDIRAHMAN ROJAS-D [facility] Pathology Reports: +/- 30 days of the [...] Reporting Lab: [facility] [CLIA# [id number]] [address] [place] [id number] Accession [UID]: [id number] [[id number]] Received: Sep 03, 2024@14:02 Collection sample: URINE, [...] Performed By: [facility] [CLIA# [id number]] [address] [place] [id number] MAGDY CALABRESECDD [facility] Sep 02, 2024 06:00 PM LR MICROBIOLOGY RE PORT: Reporting Lab: [facility] [CLIA# [id number]] [address] [place], [place] [id number] Accession [UID]: [id number] [[id number]] Received: Sep 02, 2024@18:07 Collection sample: BLD CULTURE BOTTLES Collection date: Sep 02, 2024 18:00 Site/Specimen: BLOOD Provider: FRANCK TURNER Comment on specimen: L HAND Test(s) ordered: CULTURE, BLOOD................ completed: Sep 08, 2024 * BACTERIOLOGY FINAL REPORT => Sep 08, 2024 08:25 TECH CODE: [id number] Bacteriology Remark(s): Blood culture status=NO GROWTH (unless notified otherwise) 09/03/2024 AEROBIC: NO GROWTH ANAEROBIC: NO GROWTH =--=--=--=--=--=--=--=--=--=-- =--=--=--=--=--=--=--=--=--=-- =--=--=--=--=--=-- Performing Laboratory: Bacteriology Report Performed By: [facility] [CLIA# [id number]] [address] [place] [address] MAGDY CALABRESE [facility] Aug 29, 2024 10:18 PM LR MICROBIOLOGY RE PORT: Reporting Lab: [facility] [CLIA# [id number]] [address] [place] [address] Accession [UID]: [id number] [[id number]] Received: Aug 29, 2024@22:18 Collection sample: URINE, CLEAN CATCH Collection date: Aug 29, 2024 22:18 Site/Specimen: URINE Provider: FELISA COLE Test(s) ordered: CULTURE, URINE................ completed: Aug 31, 2024 09:51 * BACTERIOLOGY FINAL REPORT => Aug 31, 2024 09:51 TECH CODE: [id number] Bacteriology Remark(s): NO GROWTH 08/30/2024 <10,000 CFU/ML. 08/31/2024 =--=--=--=--=--=--=--=--=--=-- =--=--=--=--=--=--=--=--=--=-- =--=--=--=--=--=-- Performing Laboratory: Bacteriology Report Performed By: [facility] [CLIA# [id number]] [address] [place] [address] MAGDY CALABRESE-[facility]
--- OUTSIDE RECORDS SUMMARY | 2024-09-04 09:11 | XMS_ITS | Encounter Summary ---
Author Name [facility] [place] Organization [facility] [place] [place] Address [address] [place] [address] Care Team Providers Care Automatic Trimming Sewer Name Role Phone YULISSA HENDERSON Primary Care [...] PLAN F Mar 24, 2014 PLAN F [id number] LUIS MANUEL PERDOMO PATIENT [facility] [place] [facility] PREFERRED PROVIDER ORGANIZAT ION (PPO) [facility] SLE Sep 21, 2012 [id number] LUIS MANUEL PERDOMO PATIENT [employer] ([id number]) PRESCRIPT ION WL3A Sep 21, 2012 [id number] LUIS MANUEL PERDOMO PATIENT MEDICARE (WNR) MEDICARE (M) PART B Sep 21, 2012 PART B [id number] [id number] [id number] NOEMI PERDOMO PATIENT MEDICARE (WNR) MEDICARE (M) PART A Jan 22, 2011 PART A [id number] ELANNE, NOEMI PATIENT MEDICARE PART D (WNR) MEDICARE (M) PART D Mar 24, 2014 PART D [id number] LUIS MANUEL PERDOMO PATIENT Selected Encounter This section includes the information on record at [place] for the Encounter. Date/Time Encounter Type Encounter Description Reason Provider Source Sep 04, 2024 01:11 PM EVALUATE SWALLOWING FUNCTION SPEECH-LANGUAGE PATHOLOGY ICD-10-CM R13.10 Dysphagia, unspecified DEVAN TINAJERO RA IHStephen Encounter Template Text not used by [place] Assessments - Encounter Diagnoses This section includes the primary and secondary diagnoses documented for the Encounter. Date/Time Primary/Secondary Diagnosis Diagnosis Name Provider Source Sep 04, 2024 01:17 PM PRIMARY Dysphagia, unspecified SP TINAJERO [facility] Plan of Treatment: Future Appointments (+ [...] AM AMBULATORY - NONE [place] [facility] Sep 30, 2024 01:30 PM AMBULATORY - SURGERY [place] [facility] Active, Pending, and Scheduled Orders This section [...] 13, 2024 01:33 PM Consult Order [facility] Cons Machine Filler Shredder's Choice [facility] Lab Results: +/- 30 days of [...] Type Comment Sep 09, 2024 12:16 PM [facility] GLUCOSE-HAND MONITOR CAPILLARY Specimen Type: CAPILLARY Comment: Test performed by: [id number] Meter #: [id number] Ordering Provider: FRANCK TURNER Report Released Date/Time: Sep 09, 2024 12:33 PM Reporting Lab: [address] [address] Performing Lab: [address] [address] GLUCOSE-HAND MONITOR 116 mg/dL H 71-99 Sep 09, 2024 06:07 AM [facility] GLUCOSE-HAND MONITOR CAPILLARY Specime n Type: CAPILLARY Comment: Test performed by: [id number] Meter #: [id number] Ordering Provider: RFANCK TURNER Report Released Date/Time: Sep 09, 2024 08:17 AM Reporting Lab: [address] [address] Performing Lab: [address] [address] GLUCOSE-HAND MONITOR 112 mg/dL H 71-99 Sep 08, 2024 09:13 PM [facility] GLUCOSE-HAND MONITOR CAPILLARY Specime n Type: CAPILLARY Comment: Test performed by: [id number] Meter #: [id number] Ordering Provider: FRANCK TURNER Report Released Date/Time: Sep 08, 2024 09:31 PM Reporting Lab: [address] [address] Performing Lab: [address] [address] GLUCOSE-HAND MONITOR 107 mg/dL H 71-99 Sep 08, 2024 03:49 PM [facility] GLUCOSE-HAND MONITOR CAPILLARY Specime n Type: CAPILLARY Comment: AAMIR RN notified Test performed by: [id number] Meter #: [id number] Ordering Provider: FRANCK TURNER Report Released Date/Time: Sep 08, 2024 04:33 PM Reporting Lab: [address] [address] Performing Lab: [address] [address] GLUCOSE-HAND MONITOR 162 mg/dL H 71-99 Sep 08, 2024 11:43 AM [facility] GLUCOSE-HAND MONITOR CAPILLARY Specime n Type: CAPILLARY Comment: AAMIR RN notified Test performed by: [id number] Meter #: [id number] Ordering Provider: FRANCK TURNER Report Released Date/Time: Sep 08, 2024 12:03 PM Reporting Lab: [address] [address] Performing Lab: [address] [address] GLUCOSE-HAND MONITOR 133 mg/dL H -Sep 08, 2024 06:13 AM [facility] GLUCOSE-HAND MONITOR CAPILLARY Specime n Type: CAPILLARY Comment: Test performed by: [id number] Meter #: [id number] Ordering Provider: FRANCK TURNER Report Released Date/Time: Sep 08, 2024 06:46 AM Reporting Lab: [address] [address] Performing Lab: [address] [address] GLUCOSE-HAND MONITOR 104 mg/dL H -Sep 07, 2024 07:59 PM [facility] GLUCOSE-HAND MONITOR CAPILLARY Specime n Type: CAPILLARY Comment: Test performed by: [id number] Meter #: [id number] Ordering Provider: FRANCK TURNER Report Released Date/Time: Sep 07, 2024 09:05 PM Reporting Lab: [address] [address] Performing Lab: [address] [address] GLUCOSE-HAND MONITOR 107 mg/dL H -Sep 07, 2024 04:39 PM [facility] GLUCOSE-HAND MONITOR CAPILLARY Specime n Type: CAPILLARY Comment: Test performed by: [id number] Meter #: [id number] Ordering Provider: FRANCK TURNER Report Released Date/Time: Sep 07, 2024 05:09 PM Reporting Lab: [address] [address] Performing Lab: [address] [address] GLUCOSE-HAND MONITOR 105 mg/dL H 71-99 Sep 07, 2024 11:41 AM [facility] GLUCOSE-HAND MONITOR CAPILLARY Specime n Type: CAPILLARY Comment: Test performed by: [id number] Meter #: [id number] Ordering Provider: FRANCK TURNER Report Released Date/Time: Sep 07, 2024 12:41 PM Reporting Lab: [address] [address] Performing Lab: [address] [address] GLUCOSE-HAND MONITOR 144 mg/dL H -99 Sep 07, 2024 05:56 AM [facility] GLUCOSE-HAND MONITOR CAPILLARY Specime n Type: CAPILLARY Comment: Test performed by: [id number] Meter #: [id number] Ordering Provider: FRANCK TURNER Report Released Date/Time: Sep 07, 2024 06:31 AM Reporting Lab: [address] [address] Performing Lab: [address] [address] GLUCOSE-HAND MONITOR 96 mg/dL -99 Sep 06, 2024 08:10 PM [facility] GLUCOSE-HAND MONITOR CAPILLARY Specime n Type: CAPILLARY Comment: Test performed by: [id number] Meter #: [id number] Ordering Provider: FRANCK TURNER Report Released Date/Time: Sep 06, 2024 08:52 PM Reporting Lab: [address] [address] Performing Lab: [address] [address] GLUCOSE-HAND MONITOR 124 mg/dL H -99 Sep 06, 2024 04:27 PM [facility] GLUCOSE-HAND MONITOR CAPILLARY Specime n Type: CAPILLARY Comment: Test performed by: [id number] Meter #: [id number] Ordering Provider: FRANCK TURNER Report Released Date/Time: Sep 06, 2024 05:15 PM Reporting Lab: [address] [address] Performing Lab: [address] [address] GLUCOSE-HAND MONITOR 107 mg/dL H -Sep 06, 2024 12:12 PM [facility] GLUCOSE-HAND MONITOR CAPILLARY Specime n Type: CAPILLARY Comment: Test performed by: [id number] Meter #: [id number] Ordering Provider: FRANCK TURNER Report Released Date/Time: Sep 06, 2024 12:29 PM Reporting Lab: [address] [address] Performing Lab: [address] [address] GLUCOSE-HAND MONITOR 181 mg/dL H Sep 06, 2024 06:13 AM [facility] GLUCOSE-HAND MONITOR CAPILLARY Specime n Type: CAPILLARY Comment: Test performed by: [id number] Meter #: [id number] Ordering Provider: FRANCK TURNER Report Released Date/Time: Sep 06, 2024 06:36 AM Reporting Lab: [address] [address] Performing Lab: [address] [address] GLUCOSE-HAND MONITOR 102 mg/dL H Sep 05, 2024 08:47 PM [facility] GLUCOSE-HAND MONITOR CAPILLARY Specime n Type: CAPILLARY Comment: Test performed by: [id number] Meter #: [id number] Ordering Provider: FRANCK TURNER Report Released Date/Time: Sep 06, 2024 02:13 AM Reporting Lab: [address] [address] Performing Lab: [address] [address] GLUCOSE-HAND MONITOR 103 mg/dL H Sep 05, 2024 04:40 PM [facility] GLUCOSE-HAND MONITOR CAPILLARY Specime n Type: CAPILLARY Comment: AAMIR RN notified Test performed by: [id number] Meter #: [id number] Ordering Provider: FRANCK TURNER Report Released Date/Time: Sep 05, 2024 05:11 PM Reporting Lab: [address] [address] Performing Lab: [address] [address] GLUCOSE-HAND MONITOR 113 mg/dL H -Sep 05, 2024 12:06 PM [facility] GLUCOSE-HAND MONITOR CAPILLARY Specime n Type: CAPILLARY Comment: Test performed by: [id number] Meter #: [id number] Ordering Provider: FRANCK TURNER Report Released Date/Time: Sep 05, 2024 12:23 PM Reporting Lab: [address] [address] Performing Lab: [address] [address] GLUCOSE-HAND MONITOR 115 mg/dL H Sep 05, 2024 06:26 AM [facility] GLUCOSE-HAND MONITOR CAPILLARY Specime n Type: CAPILLARY Comment: AAMIR Correction Dose Test performed by: [id number] Meter #: [id number] Ordering Provider: FRANCK TURNER Report Released Date/Time: Sep 05, 2024 06:43 AM Reporting Lab: [address] [address] Performing Lab: [address] [address] GLUCOSE-HAND MONITOR 111 mg/dL H Sep 04, 2024 08:59 PM [facility] GLUCOSE-HAND MONITOR CAPILLARY Specime n Type: CAPILLARY Comment: AAMIR RN notified Test performed by: [id number] Meter #: [id number] Ordering Provider: FRANCK TURNER Report Released Date/Time: Sep 04, 2024 09:36 PM Reporting Lab: [address] [address] Performing Lab: [address] [address] GLUCOSE-HAND MONITOR 123 mg/dL H Sep 04, 2024 04:41 PM [facility] GLUCOSE-HAND MONITOR CAPILLARY Specime n Type: CAPILLARY Comment: AAMIR RN notified Test performed by: [id number] Meter #: [id number] Ordering Provider: FRANCK TURNER Report Released Date/Time: Sep 04, 2024 05:03 PM Reporting Lab: [place] [phone] Performing Lab: [place] [phone] GLUCOSE-HAND MONITOR 118 mg/dL H Sep 04, 2024 12:36 PM [facility] GLUCOSE-HAND MONITOR CAPILLARY Specime n Type: CAPILLARY Comment: AAMIR RN notified Test performed by: [id number] Meter #: [id number] Ordering Provider: FRANCK TURNER Report Released Date/Time: Sep 04, 2024 12:53 PM Reporting Lab: [place] [phone] Performing Lab: [place] [phone] GLUCOSE-HAND MONITOR 129 mg/dL H Sep 04, 2024 12:03 PM [facility] RESPIRATORY VIRUS PANEL (BIOFIRE) NASOPHARYN X Specimen Type: NASOPHARYNX Comment: ~For Test: RESPIRATORY VIRUS PANEL (BIOFIRE) ~ORDER READ BACK TO: FRANCK TURNER 09/04/24@11:30 Ordering Provider: FRANCK TURNER Report Released Date/Time: Sep 04, 2024 11:33 AM Reporting Lab: [place] [phone] Performing Lab: [place] [phone] ADENOVIRUS (BIOFIRE) Not Detected -Not D etected [...] Detected Sep 04, 2024 06:55 AM [facility] MAGNESIUM PLASMA Specimen Type: PLASM A [...] Sep 03, 2024 11:10 AM Reporting Lab: [facility] [address] [facility] [address] Performing Lab: [address] [address] MAGNESIUM 1.8 mg/dL 1.6-2.6 Sep 04, 2024 06:55 AM [facility] PANEL 1 PLASMA Specimen Type: [...] Sep 03, 2024 11:10 AM Reporting Lab: [address] [address] Performing Lab: [place] [phone] CREATININE 0.75 mg/dL 0.72-1.25 UREA NITROGEN 13 mg/dL 9-25 GLUCOSE 105 mg/dL H 74-100 SODIUM 128 mmol/L L 136-145 POTASSIUM 3.9 mmol/L 3.5-5.1 CHLORIDE 99 mmol/L 98-107 CO2 21 mmol/L L 22-29 CALCIUM 8.0 mg/dL L 8.4-10.2 ANION GAP 8 meq/L 3-19 eGFR (CKD-EPI) >90 Sep 04, 2024 06:02 AM [facility] GLUCOSE-HAND MONITOR CAPILLARY Specime n Type: CAPILLARY Comment: Test performed by: [id number] Meter #: [id number] Ordering Provider: FRANCK TURNER Report Released Date/Time: Sep 04, 2024 06:28 AM Reporting Lab: [address] [address] Performing Lab: [address] [address] GLUCOSE-HAND MONITOR 114 mg/dL H -Sep 03, 2024 05:19 PM [facility] GLUCOSE-HAND MONITOR CAPILLARY Specime n Type: CAPILLARY Comment: Test performed by: [id number] Meter #: [id number] Ordering Provider: FRANCK TURNER Report Released Date/Time: Sep 03, 2024 05:37 PM Reporting Lab: [address] [address] Performing Lab: [place] [phone] GLUCOSE-HAND MONITOR 124 mg/dL H 71-99 Sep 03, 2024 04:41 PM [facility] GLUCOSE-HAND MONITOR CAPILLARY Specime n Type: CAPILLARY Comment: Test performed by: [id number] Meter #: [id number] Ordering Provider: FRANCK TURNER Report Released Date/Time: Sep 03, 2024 06:09 PM Reporting Lab: [address] [address] Performing Lab: [address] [address] GLUCOSE-HAND MONITOR 112 mg/dL H 71-99 Sep 03, 2024 01:35 PM [facility] CREATININE URINE Specimen Type: URINE Comment: ~Altered mental status with no identifiable cause Ordering Provider: FRANCK TURNER Report Released Date/Time: Sep 02, 2024 04:44 PM Reporting Lab: [address] [address] Performing Lab: [address] [address] CREATININE 150.9 mg/dL Sep 03, 2024 01:35 PM [facility] URINE LYTES URINE Specimen Type : URINE Comment: ~Altered mental status with no identifiable cause Ordering Provider: FRANCK TURNER Report Released Date/Time: Sep 02, 2024 04:44 PM Reporting Lab: [address] [address] Performing Lab: [address] [address] SODIUM 130 mmol/L POTASSIUM 47.6 mmol/L CHLORIDE 137 mmol/L Sep 03, 2024 01:35 PM [facility] UREA NITROGEN URINE Specimen Type : URINE Comment: ~Altered mental status with no identifiable cause Ordering Provider: FRANCK TURNER Report Released Date/Time: Sep 02, 2024 04:44 PM Reporting Lab: [address] [address] Performing Lab: [address] [address] UREA NITROGEN 320 mg/dL Sep 03, 2024 01:35 PM [facility] URINALYSIS WITH REFLEX TO CULTURE URINE Specimen Type: URINE Comment: ~Altered mental status with no identifiable cause Ordering Provider: FRANCK TURNER Report Released Date/Time: Sep 02, 2024 04:44 PM Reporting Lab: [address] [address] Performing Lab: [address] [address] URINE COLOR Yellow Colorless-Yellow APPEARANCE CLOUDY H [...] H 0-28 Sep 03, 2024 01:35 PM [facility] OSMOLALITY URINE Specimen Type: URINE Comment: ~Altered mental status with no identifiable cause Ordering Provider: FRANCK TURNER Report Released Date/Time: Sep 02, 2024 04:44 PM Reporting Lab: [address] [address] Performing Lab: [address] [address] OSMOLALITY 522 mosm/kg 38-1400 Sep 03, 2024 11:58 AM [facility] GLUCOSE-HAND MONITOR CAPILLARY Specime n Type: CAPILLARY Comment: AAMIR RN notified Test performed by: [id number] Meter #: [id number] Ordering Provider: FRANCK TURNER Report Released Date/Time: Sep 03, 2024 12:15 PM Reporting Lab: [address] [address] Performing Lab: [address] [address] GLUCOSE-HAND MONITOR 135 mg/dL H 71-99 Sep 03, 2024 07:09 AM [facility] GLUCOSE-HAND MONITOR CAPILLARY Specime n Type: CAPILLARY Comment: Test performed by: [id number] Meter #: [id number] Ordering Provider: FRANCK TURNER Report Released Date/Time: Sep 03, 2024 07:26 AM Reporting Lab: [address] [address] Performing Lab: [address] [address] GLUCOSE-HAND MONITOR 120 mg/dL H 71-99 Sep 03, 2024 07:05 AM [facility] CBC/PLT BLOOD Specimen Type: BLOOD No comment entered. Ordering Provider: FRANCK TURNER Report Released Date/Time: Sep 02, 2024 04:29 PM Reporting Lab: [address] [address] Performing Lab: [address] [address] WBC 6.9 10*3/uL 5.0-10.0 RBC 3.48 10*6/uL L 4.6-6.2 HGB 9.5 g/dL L 14.0-18.0 HCT 29.1 L 42.0-52.0 MCV 83.6 fL 80.0-94.0 MCH 27.3 pg 27.0-31.0 MCHC 32.6 g/dL 32.0-36.0 PLT 258 10*3/uL 150-450 MPV 10.3 fL 9.0-13.1 RDW 14.8 11.0-16.0 NRBC 0.0 0.0-0.0 Sep 03, 2024 07:05 AM [facility] MAGNESIUM PLASMA Specimen Type: PLASM [...] Sep 02, 2024 04:29 PM Reporting Lab: [address] [address] Performing Lab: [address] [address] MAGNESIUM 1.7 mg/dL 1.6-2.6 Sep 03, 2024 07:05 AM [facility] PANEL 1 PLASMA Specimen Type: [...] Sep 02, 2024 04:29 PM Reporting Lab: [address] [address] Performing Lab: [address] [address] CREATININE 0.82 mg/dL 0.72-1.25 UREA NITROGEN 12 mg/dL 9-25 GLUCOSE 109 mg/dL H 74-100 SODIUM 129 mmol/L L 136-145 POTASSIUM 4.2 mmol/L 3.5-5.1 CHLORIDE 99 mmol/L 98-107 CO2 21 mmol/L L 22-29 CALCIUM 8.1 mg/dL L 8.4-10.2 ANION GAP 9 meq/L 3-19 eGFR (CKD-EPI) 90 Sep 03, 2024 07:05 AM [facility] GLYCOHEMOGLOBIN BLOOD Specimen Type: BLOOD Comment: Prediabetes: 5.7%-6.4% Diabetes: >= 6.5% [facility] guidelines for A1c interpretation: Glycemic control [...] 8.73 and 9.27. Ref: https://ngsp.org/CAPdata.asp. The in-house [employer] D-100 analyzer has a historical CV <= 2%. Contact the laboratory for further performance characteristics of this assay. Ordering Provider: FRANCK TRUNER Report Released Date/Time: Sep 02, 2024 04:29 PM Reporting Lab: [place] [phone] Performing Lab: [place] [phone] GLYCOHEMOGLOBIN 5.6 4.4-5.6 Sep 03, 2024 07:05 AM [facility] OSMOLALITY SERUM Specimen Type: SERUM No comment entered. Ordering Provider: FRANCK TURNER Report Released Date/Time: Sep 02, 2024 04:44 PM Reporting Lab: [place] [phone] Performing Lab: [place] [phone] OSMOLALITY 271 mosm/kg L 280-300 Sep 02, 2024 08:15 PM [facility] GLUCOSE-HAND MONITOR CAPILLARY Specime n Type: CAPILLARY Comment: AAMIR DEXTER notified Test performed by: [id number] Meter #: [id number] Ordering Provider: FRANCK TURNER Report Released Date/Time: Sep 02, 2024 08:57 PM Reporting Lab: [address] [address] Performing Lab: [place] [phone] GLUCOSE-HAND MONITOR 126 mg/dL H 71-99 Sep 02, 2024 06:10 PM [facility] MRSA SURVL NARES DNA NARES [...] Sep 02, 2024 05:12 PM Reporting Lab: [address] [address] Performing Lab: [place] [phone] MRSA SURVL NARES DNA Negative Negative Sep 02, 2024 05:36 PM [facility] GLUCOSE-HAND MONITOR CAPILLARY Specime n Type: CAPILLARY Comment: Test performed by: [id number] Meter #: [id number] Ordering Provider: FRANCK TURNER Report Released Date/Time: Sep 02, 2024 05:53 PM Reporting Lab: [address] [address] Performing Lab: [address] [address] GLUCOSE-HAND MONITOR 127 mg/dL H 71-99 Aug 29, 2024 10:04 PM [facility] URINALYSIS WITH REFLEX TO CULTURE URINE Specimen Type: URINE Comment: ~For Test: URINALYSIS WITH REFLEX TO CULTURE ~REORDER Ordering Provider: FELISA COLE Report Released Date/Time: Aug 29, 2024 09:36 PM Reporting Lab: [address] [address] Performing Lab: [address] [address] URINE COLOR Yellow Colorless-Yellow APPEARANCE Clear Clear [...] 0-28 Aug 29, 2024 08:32 PM [facility] HIGH SENSITIVITY TROPONIN I PLASMA Specimen [...] Aug 29, 2024 07:55 PM Reporting Lab: [address] [address] Performing Lab: [address] [address] HIGH SENSITIVITY TROPONIN I 7 4-35 Aug 29, 2024 08:32 PM [facility] CBC/PLT BLOOD Specimen Type: BLOOD No comment entered. Ordering Provider: FELISA COLE Report Released Date/Time: Aug 29, 2024 07:55 PM Reporting Lab: [address] [address] Performing Lab: [facility] [address] [facility] [address] WBC 11.2 10*3/uL H 5.0-10.0 RBC 3.97 10*6/uL L 4.6-6.2 HGB 10.9 g/dL L 14.0-18.0 HCT 33.5 L 42.0-52.0 MCV 84.4 fL 80.0-94.0 MCH 27.5 pg 27.0-31.0 MCHC 32.5 g/dL 32.0-36.0 PLT 230 10*3/uL 150-450 MPV 10.2 fL 9.0-13.1 RDW 14.6 11.0-16.0 NRBC 0.0 0.0-0.0 Aug 29, 2024 08:32 PM [facility] PANEL 5 PLASMA Specimen Type: [...] Aug 29, 2024 07:55 PM Reporting Lab: [address] [address] Performing Lab: [address] [address] CREATININE 0.85 mg/dL 0.72-1.25 UREA NITROGEN 15 [...] 04, 2024 10:21 PM 0 [place] [facility] Sep 04, 2024 08:38 PM 99.2 F 86 /min 127/68 mm[Hg] 18 /min 93 % 0 [place] [facility] Sep 04, 2024 07:06 PM 1 [place] [facility] Sep 04, 2024 06:44 PM 2 [place] [facility] Sep 04, 2024 06:39 PM 99.9 F 76 /min 154/68 mm[Hg] 90 % [place] [facility] Advance Directives: All historical and current [...] 08, 2024 ADVANCE DIRECTIVE DISCUSSION [facility] Radiology Reports: +/- 30 days [...] BRAIN W & W/O: LUIS MANUEL PERDOMO [id number] -1945 M Exm Date: SEP 06, 2024@13:40 Req Phys: FRANCK TURNER Pat Loc: 5-MED/TEL/09-06-2024@19:09 Img Loc: [facility] Service: [place] [address] (Case [id number] COMPLETE) MRI BRAIN W & W/O (MRI Detailed) CPT:65712 Contrast Media : Gadolinium Reason for Study: SEE CLINICAL HISTORY Pharmaceutical: GADOTERIDOL 279.3MG/ML 20ML INJ, 19ml Clinical History: MRI Screening (Required): IMPLANTED DEVICE DOCUMENTATION IMPLANTED DEVICE DOCUMENTATION NOT FOUND Does the [place] have any Cardiac Implants? None Does the [place] have any implanted stimulators? None Does the [place] have cochlear implants? No Does the [place] have Cerebral aneurysm clip(s)? I don't know Does the have any shrapnel? I don't know If yes, where in your body? Please list other implants not listed above: MRI table has a weight limit of 551 lbs. [place]'s Weight: *212 lb [96.16 kg] (09/04/2024 05:19) Is this patient claustrophobic?: No REASON FOR EXAM:MULTIPLE SCLEROSIS (indicate suspected or established) PERTINENT PATIENT HISTORY: MS c/f for flare Risk factors for GADOLINIUM NEPHROGENIC SYSTEMIC SCLEROSIS: Report Status: Verified Date Reported: SEP 06, 2024 Date Verified: SEP 06, 2024 Blow Mold Operator E-Sig: Report: MRI brain without and [...] Staff: ARCENIO LEYVA, Staff Radiologist Verified by horn player for ARCENIO LEYVA /ARCENIO AVILA-CDD [facility] Sep 06, 2024 01:40 PM MRI C SPINE W & W/ O CONTRAST(FURTHER SEQUENCES): LUIS MANUEL PERDOMO [id number] -1945 M Exm Date: SEP 06, 2024@13:40 Req Phys: AZARFRANCK WHEELER Pat Loc: 5-MED/TEL/09-07-2024@06:42 Img Loc: [facility] Service: [place] [address] (Case [id number] COMPLETE) MRI C SPINE W & W/O CONTRAST(FURT(MRI Detailed) CPT:82524 Contrast Media : Gadolinium Reason for Study: SEE CLINICAL HISTORY Pharmaceutical: GADOTERIDOL 279.3MG/ML 20ML INJ, 19ml Clinical History: STATUS OF PLAIN FILMS:Not performed (Provide justification for MR W/O prior plain films below.) MRI for MS MRI Screening (Required): IMPLANTED DEVICE DOCUMENTATION IMPLANTED DEVICE DOCUMENTATION NOT FOUND Does the [place] have any Cardiac Implants? None Does the have any implanted stimulators? None Does the [place] have cochlear implants? No Does the [place] have Cerebral aneurysm clip(s)? I don't know Does the [place] have any shrapnel? I don't know If [...] 07, 2024 Date Verified: SEP 07, 2024 Blow Mold Operator E-Sig: Report: EXAMINATION: MRI OF THE [...] Interpreting Staff: HUANG TAI, Radiologist Verified by horn player for HUANG TAI /HUANG WHEATLEY-MALKA [facility] Sep 03, 2024 10:45 AM CHEST SINGLE(1) EW: LUIS MANUEL PERDOMO FABIAN [id number] -1945 M Exm Date: SEP 03, 2024@10:45 Req Phys: FRANCK TURNER [facility] Loc: 5-MED/TEL/09-03-2024@10:56 Img Loc: CDD RADIOLOGY Service: [place] [address] (Case [id number] COMPLETE)CHEST SINGLE(1) VIEW (RAD Detailed) CPT:98216 Proc Modifiers : PORTABLE EXAM Reason for Study: Eval volume status Clinical History: Report Status: Verified Date Reported: SEP 03, 2024 Date Verified: SEP 03, 2024 Blow Mold Operator E-Sig: Report: EXAMINATION: SINGLE VIEW CHEST [...] Interpreting Staff: HUANG TAI, Radiologist Verified by horn player for HUANG TAI /HUNAG WHEATLEY-D [facility] Aug 29, 2024 08:[address] HEAD W/O CONT: LUIS MANUEL PERDOMO FABIAN [id number] -1945 M Exm Date: AUG 29, 2024@20:28 Req Phys: FELISA COLE Loc: ED/4P-12A (Req'g Loc) Img Loc: CT SCAN Service: [place] [address] (Case [id number] COMPLETE) CT HEAD W/O CONT (CT Detailed) CPT:70945 Reason for Study: SEE CLINICAL HISTORY Clinical History: REASON FOR SEND OUT: ATTENDING PHYSICIAN NAME: New transient neurological s/s - suspected TIA HISTORY/REASON FOR EXAM: confusion Report Status: Verified Date Reported: AUG 29, 2024 Date Verified: AUG 29, 2024 Blow Mold Operator E-Sig: Report: HISTORY confusion COMPARISON No [...] Staff: ABDIRAHMAN CROW, Staff Physician Verified by horn player for ABDIRAHMAN CROW /ABDIRAHMAN [facility] Pathology Reports: +/- 30 days of [...] MICROBIOLOGY RE PORT: Reporting Lab: [facility] [CLIA# [id number]] [address] [place] [address] Accession [UID]: [id number] [[id number]] Received: Sep 03, 2024@14:02 Collection sample: URINE, [...] Laboratory: Bacteriology Report Performed By: [facility] [[facility]# [id number]] [address] [place] [address] MAGDY CALABRESE [facility] Sep 02, 2024 06:00 PM LR MICROBIOLOGY RE PORT: Reporting Lab: [facility] [[facility]# [id number]] [address] [place], [place] [id number] Accession [UID]: [id number] [[id number]] Received: Sep 02, 2024@18:07 Collection sample: BLD CULTURE BOTTLES Collection date: Sep 02, 2024 18:00 Site/Specimen: BLOOD Provider: FRANCK TURNER Comment on specimen: L HAND Test(s) ordered: CULTURE, BLOOD................ completed: Sep 08, 2024 * BACTERIOLOGY FINAL REPORT => Sep 08, 2024 08:25 [facility] CODE: [id number] Bacteriology Remark(s): Blood culture status=NO GROWTH (unless notified otherwise) 09/03/2024 AEROBIC: NO GROWTH ANAEROBIC: NO GROWTH =--=--=--=--=--=--=--=--=--=-- =--=--=--=--=--=--=--=--=--=-- =--=--=--=--=--=-- Performing Laboratory: Bacteriology Report Performed By: [facility] [[facility]# [id number]] [address] [place] [address] MAGDY CALABRESE [facility] Aug 29, 2024 10:18 PM LR MICROBIOLOGY RE PORT: Reporting Lab: [facility] [[facility]# [id number]] [address] [place], [place] [id number] Accession [UID]: [id number] [[id number]] Received: Aug 29, 2024@22:18 Collection sample: URINE, CLEAN CATCH Collection date: Aug 29, 2024 22:18 Site/Specimen: URINE Provider: FELISA COLE Test(s) ordered: CULTURE, URINE................ completed: Aug 31, 2024 09:51 * BACTERIOLOGY FINAL REPORT => Aug 31, 2024 09:51 TECH CODE: [id number] Bacteriology Remark(s): NO GROWTH 08/30/2024 <10,000 CFU/ML. 08/31/2024 =--=--=--=--=--=--=--=--=--=-- =--=--=--=--=--=--=--=--=--=-- =--=--=--=--=--=-- Performing Laboratory: Bacteriology Report Performed By: [facility] [CLIA# [id number]] [address] [place] [address] MAGDY CALABRESE [facility] Encounter Notes: All associated encounter notes This section contains the clinical notes associated to the Encounter. Date/Time Encounter Note(s) Provider Source Sep 04, 2024 01:11 PM SPEECH PATHOLOGY C ONSULT: LOCAL TITLE: SPEECH - CLINICAL DYSPHAGIA CONSULT RESPONSE STANDARD TITLE: SPEECH PATHOLOGY CONSULT DATE OF NOTE: SEP 04, 2024@13:11 ENTRY DATE: SEP 04, 2024@13:11:19 AUTHOR: SP TINAJERO EXP COSIGNER: URGENCY: STATUS: COMPLETED HISTORY Medical Diagnosis and History: 79yo MALE w/ GERD, multiple sclerosis, DMII, HLD, and COPD. Admitted 09/02/24 d/t general weakness. Symptoms/Complaints/Report ed Problems: family at bedside; denied any difficulty swallowing, noting he coughs throughout the day but not w/ foods or liquids. Noted he was previously seen by ENT for R sided neck swelling, but this has not impacted swallow function. History of no prior work up Communication Status: WNL Present Nutritional Order: Regular, Thin Oral Structures: WNL? Yes Dentures present? Yes Needs Dental Consult? No Oral Functions: WNL Impaired Comments: Labial ROM/i,u/: [X] [ ] Symmetry: [X] [ ] Strength: [X] [ ] Sensation: [X] [ ] Lingual ROM: [X] [ ] Symmetry: [X] [ ] Strength: [X] [ ] Sensation: [X] [ ] Velar Elevation: [X] [ ] Laryngeal Vocal Quality: [X] [ ] Strength of Cough: [X] [ ] Throat Clearing: [X] [ ] Other Yes No Impulsivity: [ ] [X] Endurance Impaired: [ ] [X] Drooling: [ ] [X] Rotary Chew: [ ] [X] Oral Apraxia: [ ] [X] Nasal Regurgitation: [ ] [X] Reflexive Cough: [ ] not observed OBSERVATIONS DURING FOOD PRESENTATIONS: (If patient is PO): Thin Liquid Pureed Solid Other Comments Can't form bolus: [ ] [ ] [ ] [ ] Can't propel bolus backward: [ ] [ ] [ ] [ ] Delayed initiation: [ ] [ ] [ ] [ ] Choking: [ ] [ ] [ ] [ ] Pocketing: [ ] [ ] [ ] [ ] Complaints of discomfort: [ ] [ ] [ ] [ ] Gargly voice quality: [ ] [ ] [ ] [ ] Coating of tongue/palate: [ ] [ ] [X] [ ] cleared w/ liquid wash SUMMARY/RECOMMENDATIONS: presents w/ functional swallow this date. No overt s/sx of aspiration observed. noted he wasn't very hungry (lunch tray at bedside mostly not touched). Tolerated all PO trials well w/o any s/sx of dysphagia. Oral structures appeared intact. Recommended continue current diet w/ general safe swallowing strategies, which 's noted he already implements. No further speech needs at this time. Modified barium swallow: Not at this time Diet texture (including liquid thickness): Regular, Thin Posture: Upright with head forward Bite Size: 1 tsp. Drinks: Regular Needs additional oral care: No Needs feeding by staff: Chelsi /rosette/ SP TINAJERO MA, CCC-ADOBE LAYER HELPER Speech-Language Pathologist Signed: 09/04/2024 13:17 SP TINAJERO-MALKA [facility]
--- OUTSIDE RECORDS SUMMARY | 2024-09-04 11:03 | XMS_ITS ---
IN DAILY HOSPITALIZATION DATA [facility] Encounter Summary Created on: September 22, 2024 LUIS MANUEL PERDOMO : 1945 Sex: Male Author Name [facility] Organization [facility] [place] Address [address] [place] [address] Care Team Providers Care Game Producer Name Role Phone YULISSA HENDERSON Primary Care [...] PLAN F Mar 24, 2014 PLAN F [id number] [phone] LUIS MANUEL PERDOMO PATIENT [facility] [place] [facility] PREFERRED PROVIDER ORGANIZAT ION (PPO) [facility] SLE Sep 21, 2012 [id number] LUIS MANUEL PERDOMO PATIENT [employer] [facility] ([id number]) PRESCRIPT ION WL3A Sep 21, 2012 [id number] LUIS MANUEL PERDOMO PATIENT MEDICARE (WNR) MEDICARE (M) PART B Sep 21, 2012 PART B [id number] [phone] NOEMI PERDOMO PATIENT MEDICARE (WNR) MEDICARE (M) PART A Jan 22, 2011 PART A [id number] LEANNE, NOEMI PATIENT MEDICARE PART D (WNR) MEDICARE (M) PART D Mar 24, 2014 PART D [id number] LUIS MANUEL PERDOMO PATIENT Selected Encounter This section includes the information on record at [place] for the Encounter. Date/Time Encounter Type Encounter Description Reason Pro vider Source Sep 04, 2024 03:03 PM Inpatient Visit DAILY HOSPITALIZATION DATA [facility] Encounter Template Text not used by [place] Plan of Treatment: Future Appointments (+ 6 months) and Future Tests (+/- 45 days) The Plan of Treatment section includes future care activities for the [facility] [place] [facility]. This section includes future appointments and future [...] 13, 2024 08:00 AM AMBULATORY - NONE [facility] Sep 30, 2024 01:30 PM AMBULATORY - SURGERY [facility] Active, Pending, and Scheduled Orders This section includes a listing of several types of active, pending, and scheduled orders, including clinic medications orders, diagnostic test orders, procedure orders and consult orders; where the start date of the order is 45 days before the date of the Encounter or 45 days after the date of theEncounter. The data comes from all [facility] facilities. Test Date/Time Test Type Test Details Facility Name Sep 13, 2024 01:33 PM Consult Order [facility] SK[facility] HOME CARE Cons Rn Home Health's Choice [facility] Lab Results: +/- 30 days [...] Type Comment Sep 09, 2024 12:16 PM [facility] GLUCOSE-HAND MONITOR CAPILLARY Specimen Type: CAPILLARY Comment: Test performed by: [id number] Meter #: [id number] Ordering Provider: FRANCK TURNER Report Released Date/Time: Sep 09, 2024 12:33 PM Reporting Lab: [address] [address] Performing Lab: [address] [address] GLUCOSE-HAND MONITOR 116 mg/dL H Sep 09, 2024 06:07 AM [facility] GLUCOSE-HAND MONITOR CAPILLARY Specime n Type: CAPILLARY Comment: Test performed by: [id number] Meter #: [id number] Ordering Provider: FRANCK TURNER Report Released Date/Time: Sep 09, 2024 08:17 AM Reporting Lab: [address] [address] Performing Lab: [address] [address] GLUCOSE-HAND MONITOR 112 mg/dL H Sep 08, 2024 09:13 PM [facility] GLUCOSE-HAND MONITOR CAPILLARY Specime n Type: CAPILLARY Comment: Test performed by: [id number] Meter #: [id number] Ordering Provider: FRANCK TURNER Report Released Date/Time: Sep 08, 2024 09:31 PM Reporting Lab: [address] [address] Performing Lab: [address] [address] GLUCOSE-HAND MONITOR 107 mg/dL H Sep 08, 2024 03:49 PM [facility] GLUCOSE-HAND MONITOR CAPILLARY Specime n Type: CAPILLARY Comment: AAMIR RN notified Test performed by: [id number] Meter #: [id number] Ordering Provider: FRANCK TURNER Report Released Date/Time: Sep 08, 2024 04:33 PM Reporting Lab: [address] [address] Performing Lab: [address] [address] GLUCOSE-HAND MONITOR 162 mg/dL H Sep 08, 2024 11:43 AM [facility] GLUCOSE-HAND MONITOR CAPILLARY Specime n Type: CAPILLARY Comment: AAMIR RN notified Test performed by: [id number] Meter #: [id number] Ordering Provider: FRANCK TURNER Report Released Date/Time: Sep 08, 2024 12:03 PM Reporting Lab: [address] [address] Performing Lab: [address] [address] GLUCOSE-HAND MONITOR 133 mg/dL H Sep 08, 2024 06:13 AM [facility] GLUCOSE-HAND MONITOR CAPILLARY Specime n Type: CAPILLARY Comment: Test performed by: [id number] Meter #: [id number] Ordering Provider: FRANCK TURNER Report Released Date/Time: Sep 08, 2024 06:46 AM Reporting Lab: [address] [address] Performing Lab: [address] [address] GLUCOSE-HAND MONITOR 104 mg/dL H Sep 07, 2024 07:59 PM [facility] GLUCOSE-HAND MONITOR CAPILLARY Specime n Type: CAPILLARY Comment: Test performed by: [id number] Meter #: [id number] Ordering Provider: FRANCK TURNER Report Released Date/Time: Sep 07, 2024 09:05 PM Reporting Lab: [address] [address] Performing Lab: [address] [address] GLUCOSE-HAND MONITOR 107 mg/dL H Sep 07, 2024 04:39 PM [facility] GLUCOSE-HAND MONITOR CAPILLARY Specime n Type: CAPILLARY Comment: Test performed by: [id number] Meter #: [id number] Ordering Provider: FRANCK TURNER Report Released Date/Time: Sep 07, 2024 05:09 PM Reporting Lab: [address] [address] Performing Lab: [address] [address] GLUCOSE-HAND MONITOR 105 mg/dL H Sep 07, 2024 11:41 AM [facility] GLUCOSE-HAND MONITOR CAPILLARY Specime n Type: CAPILLARY Comment: Test performed by: [id number] Meter #: [id number] Ordering Provider: FRANCK TURNER Report Released Date/Time: Sep 07, 2024 12:41 PM Reporting Lab: [address] [address] Performing Lab: [address] [address] GLUCOSE-HAND MONITOR 144 mg/dL H Sep 07, 2024 05:56 AM [facility] GLUCOSE-HAND MONITOR CAPILLARY Specime n Type: CAPILLARY Comment: Test performed by: [id number] Meter #: [id number] Ordering Provider: FRANCK TURNER Report Released Date/Time: Sep 07, 2024 06:31 AM Reporting Lab: [address] [address] Performing Lab: [address] [address] GLUCOSE-HAND MONITOR 96 mg/dL Sep 06, 2024 08:10 PM [facility] GLUCOSE-HAND MONITOR CAPILLARY Specime n Type: CAPILLARY Comment: Test performed by: [id number] Meter #: [id number] Ordering Provider: FRANCK TURNER Report Released Date/Time: Sep 06, 2024 08:52 PM Reporting Lab: [address] [address] Performing Lab: [address] [address] GLUCOSE-HAND MONITOR 124 mg/dL H Sep 06, 2024 04:27 PM [facility] GLUCOSE-HAND MONITOR CAPILLARY Specime n Type: CAPILLARY Comment: Test performed by: [id number] Meter #: [id number] Ordering Provider: FRANCK TURNER Report Released Date/Time: Sep 06, 2024 05:15 PM Reporting Lab: [address] [address] Performing Lab: [address] [address] GLUCOSE-HAND MONITOR 107 mg/dL H Sep 06, 2024 12:12 PM [facility] GLUCOSE-HAND MONITOR CAPILLARY Specime n Type: CAPILLARY Comment: Test performed by: [id number] Meter #: [id number] Ordering Provider: FRANCK TURNER Report Released Date/Time: Sep 06, 2024 12:29 PM Reporting Lab: [address] [address] Performing Lab: [address] [address] GLUCOSE-HAND MONITOR 181 mg/dL H -Sep 06, 2024 06:13 AM [facility] GLUCOSE-HAND MONITOR CAPILLARY Specime n Type: CAPILLARY Comment: Test performed by: [id number] Meter #: [id number] Ordering Provider: FRANCK TURNER Report Released Date/Time: Sep 06, 2024 06:36 AM Reporting Lab: [address] [address] Performing Lab: [address] [address] GLUCOSE-HAND MONITOR 102 mg/dL H Sep 05, 2024 08:47 PM [facility] GLUCOSE-HAND MONITOR CAPILLARY Specime n Type: CAPILLARY Comment: Test performed by: [id number] Meter #: [id number] Ordering Provider: FRANCK TURNER Report Released Date/Time: Sep 06, 2024 02:13 AM Reporting Lab: [address] [address] Performing Lab: [address] [address] GLUCOSE-HAND MONITOR 103 mg/dL H Sep 05, 2024 04:40 PM [facility] GLUCOSE-HAND MONITOR CAPILLARY Specime n Type: CAPILLARY Comment: AAMIR RN notified Test performed by: [id number] Meter #: [id number] Ordering Provider: FRANCK TURNER Report Released Date/Time: Sep 05, 2024 05:11 PM Reporting Lab: [address] [address] Performing Lab: [address] [address] GLUCOSE-HAND MONITOR 113 mg/dL H Sep 05, 2024 12:06 PM [facility] GLUCOSE-HAND MONITOR CAPILLARY Specime n Type: CAPILLARY Comment: Test performed by: [id number] Meter #: [id number] Ordering Provider: FRANCK TURNER Report Released Date/Time: Sep 05, 2024 12:23 PM Reporting Lab: [address] [address] Performing Lab: [address] [address] GLUCOSE-HAND MONITOR 115 mg/dL H Sep 05, 2024 06:26 AM [facility] GLUCOSE-HAND MONITOR CAPILLARY Specime n Type: CAPILLARY Comment: AAMIR Correction Dose Test performed by: [id number] Meter #: [id number] Ordering Provider: FRANCK TURNER Report Released Date/Time: Sep 05, 2024 06:43 AM Reporting Lab: [address] [address] Performing Lab: [address] [address] GLUCOSE-HAND MONITOR 111 mg/dL H Sep 04, 2024 08:59 PM [facility] GLUCOSE-HAND MONITOR CAPILLARY Specime n Type: CAPILLARY Comment: AAMIR RN notified Test performed by: [id number] Meter #: [id number] Ordering Provider: FRANCK TURNER Report Released Date/Time: Sep 04, 2024 09:36 PM Reporting Lab: [address] [address] Performing Lab: [address] [address] GLUCOSE-HAND MONITOR 123 mg/dL H Sep 04, 2024 04:41 PM [facility] GLUCOSE-HAND MONITOR CAPILLARY Specime n Type: CAPILLARY Comment: AAMIR RN notified Test performed by: [id number] Meter #: [id number] Ordering Provider: FRANCK TURNER Report Released Date/Time: Sep 04, 2024 05:03 PM Reporting Lab: [address] [address] Performing Lab: [address] [address] GLUCOSE-HAND MONITOR 118 mg/dL H Sep 04, 2024 12:36 PM [facility] GLUCOSE-HAND MONITOR CAPILLARY Specime n Type: CAPILLARY Comment: AAMIR RN notified Test performed by: [id number] Meter #: [id number] Ordering Provider: FRANCK TURNER Report Released Date/Time: Sep 04, 2024 12:53 PM Reporting Lab: [address] [address] Performing Lab: [place] [address] GLUCOSE-HAND MONITOR 129 mg/dL H 71-99 Sep 04, 2024 12:03 PM [facility] RESPIRATORY VIRUS PANEL (BIOFIRE) NASOPHARYN X Specimen Type: NASOPHARYNX Comment: ~For Test: RESPIRATORY VIRUS PANEL (BIOFIRE) ~ORDER READ BACK TO: FRANCK TURNER 09/04/24@11:30 Ordering Provider: FRANCK TURNER Report Released Date/Time: Sep 04, 2024 11:33 AM Reporting Lab: [place] [phone] Performing Lab: [place] [phone] ADENOVIRUS (BIOFIRE) Not Detected -Not D etected [...] -Not Detected Sep 04, 2024 06:55 AM [facility] MAGNESIUM PLASMA Specimen Type: PLASM [...] 03, 2024 11:10 AM Reporting Lab: [place] [facility] [address] [facility] [address] Performing Lab: [place] [id number] [facility] [address] MAGNESIUM 1.8 mg/dL 1.6-2.6 Sep 04, 2024 06:55 AM [facility] PANEL 1 PLASMA Specimen Type: [...] Sep 03, 2024 11:10 AM Reporting Lab: [address] [address] Performing Lab: [address] CREATININE 0.75 mg/dL 0.72-1.25 UREA NITROGEN 13 mg/dL 9-25 GLUCOSE 105 mg/dL H 74-100 SODIUM 128 mmol/L L 136-145 POTASSIUM 3.9 mmol/L 3.5-5.1 CHLORIDE 99 mmol/L 98-107 CO2 21 mmol/L L 22-29 CALCIUM 8.0 mg/dL L 8.4-10.2 ANION GAP 8 meq/L 3-19 eGFR (CKD-EPI) >90 Sep 04, 2024 06:02 AM [facility] GLUCOSE-HAND MONITOR CAPILLARY Specime n Type: CAPILLARY Comment: Test performed by: [id number] Meter #: [id number] Ordering Provider: FRANCK TURNER Report Released Date/Time: Sep 04, 2024 06:28 AM Reporting Lab: [address] Performing Lab: [address] GLUCOSE-HAND MONITOR 114 mg/dL H 71-99 Sep 03, 2024 05:19 PM [facility] GLUCOSE-HAND MONITOR CAPILLARY Specime n Type: CAPILLARY Comment: Test performed by: [id number] Meter #: [id number] Ordering Provider: FRANCK TURNER Report Released Date/Time: Sep 03, 2024 05:37 PM Reporting Lab: [address] Performing Lab: [address] [address] GLUCOSE-HAND MONITOR 124 mg/dL H 71-99 Sep 03, 2024 04:41 PM [facility] GLUCOSE-HAND MONITOR CAPILLARY Specime n Type: CAPILLARY Comment: Test performed by: [id number] Meter #: [id number] Ordering Provider: FRANCK TURNER Report Released Date/Time: Sep 03, 2024 06:09 PM Reporting Lab: [address] [address] Performing Lab: [address] [address] GLUCOSE-HAND MONITOR 112 mg/dL H 71-99 Sep 03, 2024 01:35 PM [facility] URINE LYTES URINE Specimen Type : URINE Comment: ~Altered mental status with no identifiable cause Ordering Provider: FRANCK TURNER Report Released Date/Time: Sep 02, 2024 04:44 PM Reporting Lab: [address] [address] Performing Lab: [address] [address] SODIUM 130 mmol/L POTASSIUM 47.6 mmol/L CHLORIDE 137 mmol/L Sep 03, 2024 01:35 PM [facility] CREATININE URINE Specimen Type: URINE Comment: ~Altered mental status with no identifiable cause Ordering Provider: FRANCK TURNER Report Released Date/Time: Sep 02, 2024 04:44 PM Reporting Lab: [address] [address] Performing Lab: [address] [address] CREATININE 150.9 mg/dL Sep 03, 2024 01:35 PM [facility] OSMOLALITY URINE Specimen Type: URINE Comment: ~Altered mental status with no identifiable cause Ordering Provider: FRANCK TURNER Report Released Date/Time: Sep 02, 2024 04:44 PM Reporting Lab: [address] [address] Performing Lab: [address] [address] OSMOLALITY 522 mosm/kg 38-1400 Sep 03, 2024 01:35 PM [facility] UREA NITROGEN URINE Specimen Type : URINE Comment: ~Altered mental status with no identifiable cause Ordering Provider: FRANCK TURNER Report Released Date/Time: Sep 02, 2024 04:44 PM Reporting Lab: [address] [address] Performing Lab: [address] [address] UREA NITROGEN 320 mg/dL Sep 03, 2024 01:35 PM [facility] URINALYSIS WITH REFLEX TO CULTURE URINE Specimen Type: URINE Comment: ~Altered mental status with no identifiable cause Ordering Provider: FRANCK TURNER Report Released Date/Time: Sep 02, 2024 04:44 PM Reporting Lab: [address] [address] Performing Lab: [address] [address] URINE COLOR Yellow Colorless-Yellow APPEARANCE CLOUDY H [...] H 0-28 Sep 03, 2024 11:58 AM [facility] GLUCOSE-HAND MONITOR CAPILLARY Specime n Type: CAPILLARY Comment: AAMIR RN notified Test performed by: [id number] Meter #: [id number] Ordering Provider: FRANCK TURNER Report Released Date/Time: Sep 03, 2024 12:15 PM Reporting Lab: [address] [address] Performing Lab: [address] [address] GLUCOSE-HAND MONITOR 135 mg/dL H Sep 03, 2024 07:09 AM [facility] GLUCOSE-HAND MONITOR CAPILLARY Specime n Type: CAPILLARY Comment: Test performed by: [id number] Meter #: [id number] Ordering Provider: FRANCK TURNER Report Released Date/Time: Sep 03, 2024 07:26 AM Reporting Lab: [address] [address] Performing Lab: [address] [address] GLUCOSE-HAND MONITOR 120 mg/dL H -Sep 03, 2024 07:05 AM [facility] CBC/PLT BLOOD Specimen Type: BLOOD No comment entered. Ordering Provider: FRANCK TURNER Report Released Date/Time: Sep 02, 2024 04:29 PM Reporting Lab: [address] [address] Performing Lab: [address] [address] WBC 6.9 10*3/uL 5.0-10.0 RBC 3.48 10*6/uL L 4.6-6.2 HGB 9.5 g/dL L 14.0-18.0 HCT 29.1 L 42.0-52.0 MCV 83.6 fL 80.0-94.0 MCH 27.3 pg 27.0-31.0 MCHC 32.6 g/dL 32.0-36.0 PLT 258 10*3/uL 150-450 MPV 10.3 fL 9.0-13.1 RDW 14.8 11.0-16.0 NRBC 0.0 0.0-0.0 Sep 03, 2024 07:05 AM [facility] MAGNESIUM PLASMA Specimen Type: PLASM [...] Sep 02, 2024 04:29 PM Reporting Lab: [address] [address] Performing Lab: [address] [address] MAGNESIUM 1.7 mg/dL 1.6-2.6 Sep 03, 2024 07:05 AM [facility] PANEL 1 PLASMA Specimen Type: [...] Sep 02, 2024 04:29 PM Reporting Lab: [address] [address] Performing Lab: [address] [address] CREATININE 0.82 mg/dL 0.72-1.25 UREA NITROGEN 12 mg/dL 9-25 GLUCOSE 109 mg/dL H 74-100 SODIUM 129 mmol/L L 136-145 POTASSIUM 4.2 mmol/L 3.5-5.1 CHLORIDE 99 mmol/L 98-107 CO2 21 mmol/L L 22-29 CALCIUM 8.1 mg/dL L 8.4-10.2 ANION GAP 9 meq/L 3-19 eGFR (CKD-EPI) 90 Sep 03, 2024 07:05 AM [facility] GLYCOHEMOGLOBIN BLOOD Specimen Type: BLOOD Comment: Prediabetes: 5.7%-6.4% Diabetes: >= 6.5% [place] guidelines for A1c interpretation: Glycemic [...] 8.73 and 9.27. Ref: https://ngsp.org/CAPdata.asp. The in-house [employer] D-100 analyzer has a historical CV <= 2%. Contact the laboratory for further performance characteristics of this assay. Ordering Provider: FRANCK TURNER Report Released Date/Time: Sep 02, 2024 04:29 PM Reporting Lab: [address] [address] Performing Lab: [place] [phone] GLYCOHEMOGLOBIN 5.6 4.4-5.6 Sep 03, 2024 07:05 AM [facility] OSMOLALITY SERUM Specimen Type: SERUM No comment entered. Ordering Provider: FRANCK TURNER Report Released Date/Time: Sep 02, 2024 04:44 PM Reporting Lab: [address] [address] Performing Lab: [address] [address] OSMOLALITY 271 mosm/kg L 280-300 Sep 02, 2024 08:15 PM [facility] GLUCOSE-HAND MONITOR CAPILLARY Specime n Type: CAPILLARY Comment: AAMIR DEXTER notified Test performed by: [id number] Meter #: [id number] Ordering Provider: FRANCK TURNER Report Released Date/Time: Sep 02, 2024 08:57 PM Reporting Lab: [address] [address] Performing Lab: [address] [address] GLUCOSE-HAND MONITOR 126 mg/dL H 71-99 Sep 02, 2024 06:10 PM [facility] MRSA SURVL NARES DNA NARES [...] Sep 02, 2024 05:12 PM Reporting Lab: [address] [address] Performing Lab: [address] [address] MRSA SURVL NARES DNA Negative Negative Sep 02, 2024 05:36 PM [facility] GLUCOSE-HAND MONITOR CAPILLARY Specime n Type: CAPILLARY Comment: Test performed by: [id number] Meter #: [id number] Ordering Provider: FRANCK TURNER Report Released Date/Time: Sep 02, 2024 05:53 PM Reporting Lab: [address] [address] Performing Lab: [address] [address] GLUCOSE-HAND MONITOR 127 mg/dL H 71-99 Aug 29, 2024 10:04 PM [facility] URINALYSIS WITH REFLEX TO CULTURE URINE Specimen Type: URINE Comment: ~For Test: URINALYSIS WITH REFLEX TO CULTURE ~REORDER Ordering Provider: FELISA COLE Report Released Date/Time: Aug 29, 2024 09:36 PM Reporting Lab: [address] [address] Performing Lab: [address] [address] URINE COLOR Yellow Colorless-Yellow APPEARANCE Clear Clear [...] Aug 29, 2024 08:32 PM [facility] SENSITIVITY TROPONIN I PLASMA Specimen [...] Aug 29, 2024 07:55 PM Reporting Lab: [address] [address] Performing Lab: [address] [address] HIGH SENSITIVITY TROPONIN I 7 4-35 Aug 29, 2024 08:32 PM [facility] CBC/PLT BLOOD Specimen Type: BLOOD No comment entered. Ordering Provider: FELISA COLE Report Released Date/Time: Aug 29, 2024 07:55 PM Reporting Lab: [address] [address] Performing Lab: [address] [address] WBC 11.2 10*3/uL H 5.0-10.0 RBC 3.97 10*6/uL L 4.6-6.2 HGB 10.9 g/dL L 14.0-18.0 HCT 33.5 L 42.0-52.0 MCV 84.4 fL 80.0-94.0 MCH 27.5 pg 27.0-31.0 MCHC 32.5 g/dL 32.0-36.0 PLT 230 10*3/uL 150-450 MPV 10.2 fL 9.0-13.1 RDW 14.6 11.0-16.0 NRBC 0.0 0.0-0.0 Aug 29, 2024 08:32 PM [facility] PANEL 5 PLASMA Specimen Type: PLASM [...] Aug 29, 2024 07:55 PM Reporting Lab: [address] [address] Performing Lab: [address] [address] CREATININE 0.85 mg/dL 0.72-1.25 UREA NITROGEN 15 [...] 04, 2024 10:21 PM 0 [place] Sep 04, 2024 08:38 PM 99.2 F 86 /min 127/68 mm[Hg] 18 /min 93 % 0 [place] Sep 04, 2024 07:06 PM 1 [place] Sep 04, 2024 06:44 PM 2 [place] Sep 04, 2024 06:39 PM 99.9 F 76 /min 154/68 mm[Hg] 90 % [place] [facility] Advance Directives: All historical and current [...] 08, 2024 ADVANCE DIRECTIVE DISCUSSION [facility] Radiology Reports: +/- 30 days of [...] W & W/O: LUIS MANUEL PERDOMO FABIAN [id number] -1945 M Exm Date: SEP 06, 2024@13:40 Req Phys: FRANCK TURNER Loc: 5-MED/TEL/09-06-2024@19:09 Img Loc: [facility] Service: [place] [address] (Case [id number] COMPLETE) MRI BRAIN W & W/O (MRI Detailed) CPT:42217 Contrast Media : Gadolinium Reason for Study: SEE CLINICAL HISTORY Pharmaceutical: GADOTERIDOL 279.3MG/ML 20ML INJ, 19ml Clinical History: MRI Screening (Required): IMPLANTED DEVICE DOCUMENTATION IMPLANTED DEVICE DOCUMENTATION NOT FOUND Does the have any Cardiac Implants? None Does the [place] have any implanted stimulators? None Does the [place] have cochlear implants? No Does the [place] have Cerebral aneurysm clip(s)? I don't know Does the [place] have any shrapnel? I don't know If yes, where in your body? Please list other implants not listed above: MRI table has a weight limit of 551 lbs. [place]'s Weight: *212 lb [96.16 kg] (09/04/2024 05:19) Is this patient claustrophobic?: No REASON FOR EXAM:MULTIPLE SCLEROSIS (indicate suspected or established) PERTINENT PATIENT HISTORY: MS c/f for flare Risk factors for GADOLINIUM NEPHROGENIC SYSTEMIC SCLEROSIS: Report Status: Verified Date Reported: SEP 06, 2024 Date Verified: SEP 06, 2024 Lining Maker E-Sig: Report: MRI brain without and with [...] Staff: ARCENIO LEYVA, Staff Radiologist Verified by paper box maker for ARCENIO LEYVA /[facility]ENIO [facility] Sep 06, 2024 01:40 PM MRI C SPINE W & W/ O CONTRAST(FURTHER SEQUENCES): LUIS MANUEL PERDOMO [id number] -1945 M Exm Date: SEP 06, 2024@13:40 Req Phys: FRANCK TURNERISIAHFLOSav Pat Loc: 5-MED/TEL/09-07-2024@06:42 Img Loc: [facility] Service: [facility] [place] [id number] (Case [id number] COMPLETE) MRI C SPINE W & W/O CONTRAST(FURT(MRI Detailed) CPT:06195 Contrast Media : Gadolinium Reason for Study: SEE CLINICAL HISTORY Pharmaceutical: GADOTERIDOL 279.3MG/ML 20ML INJ, 19ml Clinical History: STATUS OF PLAIN FILMS:Not performed (Provide justification for MR W/O prior plain films below.) MRI for MS MRI Screening (Required): IMPLANTED DEVICE DOCUMENTATION IMPLANTED DEVICE DOCUMENTATION NOT FOUND Does the [place] have any Cardiac Implants? None Does the have any implanted stimulators? None Does the have cochlear implants? No Does the [place] have Cerebral aneurysm clip(s)? I don't know [...] 07, 2024 Date Verified: SEP 07, 2024 Lining Maker E-Sig: Report: EXAMINATION: MRI OF THE CERVICAL [...] Interpreting Staff: HUANG TAI, Radiologist Verified by paper box maker for HUANG TAI /HUANG WHEATLEY-Sav [facility] Sep 03, 2024 10:45 AM CHEST SINGLE(1) EW: LUIS MANUEL PERDOMO [id number] -1945 M Exm Date: SEP 03, 2024@10:45 Req Phys: FRANCK TURNER Pat Loc: 5-MED/TEL/09-03-2024@10:56 Img Loc: [facility] RADIOLOGY Service: [place] [address] (Case [id number] COMPLETE)CHEST SINGLE(1) VIEW (RAD Detailed) CPT:31393 Proc Modifiers : PORTABLE EXAM Reason for Study: Eval volume status Clinical History: Report Status: Verified Date Reported: SEP 03, 2024 Date Verified: SEP 03, 2024 Lining Maker E-Sig: Report: EXAMINATION: SINGLE VIEW CHEST CLINICAL [...] Interpreting Staff: HUANG TAI, Radiologist Verified by paper box maker for HUANG TAI /HUANG WHEATLEY-[facility] Aug 29, 2024 08:[address] HEAD W/O CONT: LUIS MANUEL PERDOMO [id number] -1945 M Exm Date: AUG 29, 2024@20:28 Req Phys: FELISA COLE Loc: ED/4P-12A (Req'g Loc) Img Loc: CT SCAN Service: [place] [address] (Case [id number] COMPLETE) CT HEAD W/O CONT (CT Detailed) CPT:39515 Reason for Study: SEE CLINICAL HISTORY Clinical History: REASON FOR SEND OUT: ATTENDING PHYSICIAN NAME: New transient neurological s/s - suspected TIA HISTORY/REASON FOR EXAM: confusion Report Status: Verified Date Reported: AUG 29, 2024 Date Verified: AUG 29, 2024 Lining Maker E-Sig: Report: HISTORY confusion COMPARISON No prior [...] Staff: ABDIRAHMAN CROW, Staff Physician Verified by paper box maker for ABDIRAHMAN CROW [facility] Reports: +/- 30 days of [...] PORT: Reporting Lab: [facility] [CLIA# [id number]] [address] [place] [id number] Accession [UID]: [id number] [[id number]] Received: Sep 03, 2024@14:02 Collection sample: URINE, [...] Report Performed By: [facility] [CLIA# [id number]] [address] [place] [id number] [facility] Sep 02, 2024 06:00 PM LR MICROBIOLOGY RE PORT: Reporting Lab: [facility] [CLIA# [id number]] [address] [place], [place] [id number] Accession [UID]: [id number] [[id number]] Received: Sep 02, 2024@18:07 Collection sample: BLD CULTURE BOTTLES Collection date: Sep 02, 2024 18:00 Site/Specimen: BLOOD Provider: FRANCK TURNER Comment on specimen: L HAND Test(s) ordered: CULTURE, BLOOD................ completed: Sep 08, 2024 * BACTERIOLOGY FINAL REPORT => Sep 08, 2024 08:25 TECH CODE: [id number] Bacteriology Remark(s): Blood culture status=NO GROWTH (unless notified otherwise) 09/03/2024 AEROBIC: NO GROWTH ANAEROBIC: NO GROWTH =--=--=--=--=--=--=--=--=--=-- =--=--=--=--=--=--=--=--=--=-- =--=--=--=--=--=-- Performing Laboratory: Bacteriology Report Performed By: [facility] [CLIA# [id number]] [address] [place] [address] MAGDY CALABRESE-[facility] Aug 29, 2024 10:18 PM LR MICROBIOLOGY RE PORT: Reporting Lab: [facility] [CLIA# [id number]] [address] [place] [address] Accession [UID]: [id number] [[id number]] Received: Aug 29, 2024@22:18 Collection sample: URINE, CLEAN CATCH Collection date: Aug 29, 2024 22:18 Site/Specimen: URINE Provider: FELISA COLE Test(s) ordered: CULTURE, URINE................ completed: Aug 31, 2024 09:51 * BACTERIOLOGY FINAL REPORT => Aug 31, 2024 09:51 TECH CODE: [id number] Bacteriology Remark(s): NO GROWTH 08/30/2024 <10,000 CFU/ML. 08/31/2024 =--=--=--=--=--=--=--=--=--=-- =--=--=--=--=--=--=--=--=--=-- =--=--=--=--=--=-- Performing Laboratory: Bacteriology Report Performed By: [facility] [IA# [id number]] [address] [place] [address] MAGDY CALABRESE-[facility]
--- OUTSIDE RECORDS SUMMARY | 2024-09-04 14:25 | XMS_ITS ---
[place] DAILY HOSPITALIZATION DATA [facility] Encounter Summary Created on: September 22, 2024 LUIS MANUEL PERDOMO : 1945 Sex: Male Author Name [facility] [place] Address [address] [place] [address] Care Team Providers [facility] Manager Name Role Phone YULISSA HENDERSON Primary Care [...] PLAN F Mar 24, 2014 PLAN F [id number] [phone] LUIS MANUEL PERDOMO PATIENT [facility] [place] [facility] PREFERRED PROVIDER ORGANIZAT ION (PPO) [facility] SLE Sep 21, 2012 [id number] [phone] LUIS MANUEL PERDOMO PATIENT [employer] ([id number]) PRESCRIPT ION WL3A Sep 21, 2012 [id number] LUIS MANUEL PERDOMO PATIENT MEDICARE (WNR) MEDICARE (M) PART B Sep 21, 2012 PART B [id number] [phone] NOEMI PERDOMO PATIENT MEDICARE (WNR) MEDICARE (M) PART A Jan 22, 2011 PART A [id number] LEANNE, NOEMI PATIENT MEDICARE PART D (WNR) MEDICARE (M) PART D Mar 24, 2014 PART D [id number] LUIS MANUEL PERDOMO PATIENT Selected Encounter This section includes the information on record at [place] for the Encounter. Date/Time Encounter Type Encounter Description Reason Pro vider Source Sep 04, 2024 06:25 PM Inpatient Visit DAILY HOSPITALIZATION DATA [facility] Encounter Template Text not used by [place] Plan of Treatment: Future Appointments (+ 6 months) and Future Tests (+/- 45 days) The Plan of Treatment section includes future care activities for the patient from all [place] [facility] This section includes future appointments and future [...] 13, 2024 08:00 AM AMBULATORY - NONE [facility] Sep 30, 2024 01:30 PM AMBULATORY - SURGERY [place] [facility] Active, Pending, and Scheduled Orders This section includes a listing of several types of active, pending, and scheduled orders, including clinic medications orders, diagnostic test orders, procedure orders and consult orders; where the start date of the order is 45 days before the date of the Encounter or 45 days after the date of theEncounter. The data comes from all [facility] facilities. Test Date/Time Test Type Test Details Facility Name Sep 13, 2024 01:33 PM Consult Order [facility] Cons Correspondent's Choice [facility] Lab Results: +/- 30 days [...] Specimen Type: CAPILLARY Comment: Test performed by: [id number] Meter #: [id number] Ordering Provider: FRANCK TURNER Report Released Date/Time: Sep 09, 2024 12:33 PM Reporting Lab: [address] [address] Performing Lab: [address] [address] GLUCOSE-HAND MONITOR 116 mg/dL H Sep 09, 2024 06:07 AM [facility] GLUCOSE-HAND MONITOR CAPILLARY Specime n Type: CAPILLARY Comment: Test performed by: [id number] Meter #: [id number] Ordering Provider: FRANCK TURNER Report Released Date/Time: Sep 09, 2024 08:17 AM Reporting Lab: [address] [address] Performing Lab: [address] [address] GLUCOSE-HAND MONITOR 112 mg/dL H Sep 08, 2024 09:13 PM [facility] GLUCOSE-HAND MONITOR CAPILLARY Specime n Type: CAPILLARY Comment: Test performed by: [id number] Meter #: [id number] Ordering Provider: FRANCK TURNER Report Released Date/Time: Sep 08, 2024 09:31 PM Reporting Lab: [address] [address] Performing Lab: [address] [address] GLUCOSE-HAND MONITOR 107 mg/dL H Sep 08, 2024 03:49 PM [facility] GLUCOSE-HAND MONITOR CAPILLARY Specime n Type: CAPILLARY Comment: AAMIR RN notified Test performed by: [id number] Meter #: [id number] Ordering Provider: FRANCK TURNER Report Released Date/Time: Sep 08, 2024 04:33 PM Reporting Lab: [address] [address] Performing Lab: [address] [address] GLUCOSE-HAND MONITOR 162 mg/dL H Sep 08, 2024 11:43 AM [facility] GLUCOSE-HAND MONITOR CAPILLARY Specime n Type: CAPILLARY Comment: AAMIR RN notified Test performed by: [id number] Meter #: [id number] Ordering Provider: FRANCK TURNER Report Released Date/Time: Sep 08, 2024 12:03 PM Reporting Lab: [address] [address] Performing Lab: [address] [address] GLUCOSE-HAND MONITOR 133 mg/dL H Sep 08, 2024 06:13 AM [facility] GLUCOSE-HAND MONITOR CAPILLARY Specime n Type: CAPILLARY Comment: Test performed by: [id number] Meter #: [id number] Ordering Provider: FRANCK TURNER Report Released Date/Time: Sep 08, 2024 06:46 AM Reporting Lab: [address] [address] Performing Lab: [address] [address] GLUCOSE-HAND MONITOR 104 mg/dL H Sep 07, 2024 07:59 PM [facility] GLUCOSE-HAND MONITOR CAPILLARY Specime n Type: CAPILLARY Comment: Test performed by: [id number] Meter #: [id number] Ordering Provider: FRANCK TURNER Report Released Date/Time: Sep 07, 2024 09:05 PM Reporting Lab: [address] [address] Performing Lab: [address] [address] GLUCOSE-HAND MONITOR 107 mg/dL H Sep 07, 2024 04:39 PM [facility] GLUCOSE-HAND MONITOR CAPILLARY Specime n Type: CAPILLARY Comment: Test performed by: [id number] Meter #: [id number] Ordering Provider: FRANCK TURNER Report Released Date/Time: Sep 07, 2024 05:09 PM Reporting Lab: [address] [address] Performing Lab: [address] [address] GLUCOSE-HAND MONITOR 105 mg/dL H Sep 07, 2024 11:41 AM [facility] GLUCOSE-HAND MONITOR CAPILLARY Specime n Type: CAPILLARY Comment: Test performed by: [id number] Meter #: [id number] Ordering Provider: FRANCK TURNER Report Released Date/Time: Sep 07, 2024 12:41 PM Reporting Lab: [address] [address] Performing Lab: [address] [address] GLUCOSE-HAND MONITOR 144 mg/dL H Sep 07, 2024 05:56 AM [facility] GLUCOSE-HAND MONITOR CAPILLARY Specime n Type: CAPILLARY Comment: Test performed by: [id number] Meter #: [id number] Ordering Provider: FRANCK TURNER Report Released Date/Time: Sep 07, 2024 06:31 AM Reporting Lab: [address] [address] Performing Lab: [address] [address] GLUCOSE-HAND MONITOR 96 mg/dL Sep 06, 2024 08:10 PM [facility] GLUCOSE-HAND MONITOR CAPILLARY Specime n Type: CAPILLARY Comment: Test performed by: [id number] Meter #: [id number] Ordering Provider: FRANCK TURNER Report Released Date/Time: Sep 06, 2024 08:52 PM Reporting Lab: [address] [address] Performing Lab: [address] [address] GLUCOSE-HAND MONITOR 124 mg/dL H Sep 06, 2024 04:27 PM [facility] GLUCOSE-HAND MONITOR CAPILLARY Specime n Type: CAPILLARY Comment: Test performed by: [id number] Meter #: [id number] Ordering Provider: FRANCK TURNER Report Released Date/Time: Sep 06, 2024 05:15 PM Reporting Lab: [address] [address] Performing Lab: [address] [address] GLUCOSE-HAND MONITOR 107 mg/dL H Sep 06, 2024 12:12 PM [facility] GLUCOSE-HAND MONITOR CAPILLARY Specime n Type: CAPILLARY Comment: Test performed by: [id number] Meter #: [id number] Ordering Provider: FRANCK TURNER Report Released Date/Time: Sep 06, 2024 12:29 PM Reporting Lab: [address] [address] Performing Lab: [address] [address] GLUCOSE-HAND MONITOR 181 mg/dL H -Sep 06, 2024 06:13 AM [facility] GLUCOSE-HAND MONITOR CAPILLARY Specime n Type: CAPILLARY Comment: Test performed by: [id number] Meter #: [id number] Ordering Provider: FRACNK TURNER Report Released Date/Time: Sep 06, 2024 06:36 AM Reporting Lab: [address] [address] Performing Lab: [address] [address] GLUCOSE-HAND MONITOR 102 mg/dL H Sep 05, 2024 08:47 PM [facility] GLUCOSE-HAND MONITOR CAPILLARY Specime n Type: CAPILLARY Comment: Test performed by: [id number] Meter #: [id number] Ordering Provider: FRANCK TURNER Report Released Date/Time: Sep 06, 2024 02:13 AM Reporting Lab: [address] [address] Performing Lab: [address] [address] GLUCOSE-HAND MONITOR 103 mg/dL H Sep 05, 2024 04:40 PM [facility] GLUCOSE-HAND MONITOR CAPILLARY Specime n Type: CAPILLARY Comment: AAMRI RN notified Test performed by: [id number] Meter #: [id number] Ordering Provider: FRANCK TURNER Report Released Date/Time: Sep 05, 2024 05:11 PM Reporting Lab: [address] [address] Performing Lab: [address] [address] GLUCOSE-HAND MONITOR 113 mg/dL H Sep 05, 2024 12:06 PM [facility] GLUCOSE-HAND MONITOR CAPILLARY Specime n Type: CAPILLARY Comment: Test performed by: [id number] Meter #: [id number] Ordering Provider: FRANCK TURNER Report Released Date/Time: Sep 05, 2024 12:23 PM Reporting Lab: [address] [address] Performing Lab: [address] [address] GLUCOSE-HAND MONITOR 115 mg/dL H Sep 05, 2024 06:26 AM [facility] GLUCOSE-HAND MONITOR CAPILLARY Specime n Type: CAPILLARY Comment: AAMIR Correction Dose Test performed by: [id number] Meter #: [id number] Ordering Provider: FRANCK TURNER Report Released Date/Time: Sep 05, 2024 06:43 AM Reporting Lab: [address] [address] Performing Lab: [address] [address] GLUCOSE-HAND MONITOR 111 mg/dL H Sep 04, 2024 08:59 PM [facility] GLUCOSE-HAND MONITOR CAPILLARY Specime n Type: CAPILLARY Comment: AAMIR RN notified Test performed by: [id number] Meter #: [id number] Ordering Provider: FRANCK TURNER Report Released Date/Time: Sep 04, 2024 09:36 PM Reporting Lab: [address] [address] Performing Lab: [address] [address] GLUCOSE-HAND MONITOR 123 mg/dL H Sep 04, 2024 04:41 PM [facility] GLUCOSE-HAND MONITOR CAPILLARY Specime n Type: CAPILLARY Comment: AAMIR RN notified Test performed by: [id number] Meter #: [id number] Ordering Provider: FRANCK TURNER Report Released Date/Time: Sep 04, 2024 05:03 PM Reporting Lab: [address] [address] Performing Lab: [address] [address] GLUCOSE-HAND MONITOR 118 mg/dL H Sep 04, 2024 12:36 PM [facility] GLUCOSE-HAND MONITOR CAPILLARY Specime n Type: CAPILLARY Comment: AAMIR RN notified Test performed by: [id number] Meter #: [id number] Ordering Provider: FRANCK TURNER Report Released Date/Time: Sep 04, 2024 12:53 PM Reporting Lab: [address] [address] Performing Lab: [place] [address] GLUCOSE-HAND MONITOR 129 mg/dL H 71-99 Sep 04, 2024 12:03 PM [facility] RESPIRATORY VIRUS PANEL (BIOFIRE) NASOPHARYN X Specimen Type: NASOPHARYNX Comment: ~For Test: RESPIRATORY VIRUS PANEL (BIOFIRE) ~ORDER READ BACK TO: FRANCK TURNER 09/04/24@11:30 Ordering Provider: FRANCK TURNER Report Released Date/Time: Sep 04, 2024 11:33 AM Reporting Lab: [place] [phone] Performing Lab: [place] [phone] ADENOVIRUS (BIOFIRE) Not Detected -Not D etected [...] -Not Detected Sep 04, 2024 06:55 AM [facility] MAGNESIUM PLASMA Specimen Type: PLASM [...] 11:10 AM Reporting Lab: [place] [facility] [address] [facility] [address] Performing Lab: [place] [id number] [facility] [address] MAGNESIUM 1.8 mg/dL 1.6-2.6 Sep 04, 2024 06:55 AM [facility] PANEL 1 PLASMA Specimen Type: [...] Sep 03, 2024 11:10 AM Reporting Lab: [address] [address] Performing Lab: [address] CREATININE 0.75 mg/dL 0.72-1.25 UREA NITROGEN 13 mg/dL 9-25 GLUCOSE 105 mg/dL H 74-100 SODIUM 128 mmol/L L 136-145 POTASSIUM 3.9 mmol/L 3.5-5.1 CHLORIDE 99 mmol/L 98-107 CO2 21 mmol/L L 22-29 CALCIUM 8.0 mg/dL L 8.4-10.2 ANION GAP 8 meq/L 3-19 eGFR (CKD-EPI) >90 Sep 04, 2024 06:02 AM [facility] GLUCOSE-HAND MONITOR CAPILLARY Specime n Type: CAPILLARY Comment: Test performed by: [id number] Meter #: [id number] Ordering Provider: FRANCK TURNER Report Released Date/Time: Sep 04, 2024 06:28 AM Reporting Lab: [address] Performing Lab: [address] GLUCOSE-HAND MONITOR 114 mg/dL H 71-99 Sep 03, 2024 05:19 PM [facility] GLUCOSE-HAND MONITOR CAPILLARY Specime n Type: CAPILLARY Comment: Test performed by: [id number] Meter #: [id number] Ordering Provider: FRANCK TURNER Report Released Date/Time: Sep 03, 2024 05:37 PM Reporting Lab: [address] Performing Lab: [address] [address] GLUCOSE-HAND MONITOR 124 mg/dL H 71-99 Sep 03, 2024 04:41 PM [facility] GLUCOSE-HAND MONITOR CAPILLARY Specime n Type: CAPILLARY Comment: Test performed by: [id number] Meter #: [id number] Ordering Provider: FRANCK TURNER Report Released Date/Time: Sep 03, 2024 06:09 PM Reporting Lab: [address] [address] Performing Lab: [address] [address] GLUCOSE-HAND MONITOR 112 mg/dL H 71-99 Sep 03, 2024 01:35 PM [facility] CREATININE URINE Specimen Type: URINE Comment: ~Altered mental status with no identifiable cause Ordering Provider: FRANCK TURNER Report Released Date/Time: Sep 02, 2024 04:44 PM Reporting Lab: [facility] [address] [place] [address] Performing Lab: [address] [address] CREATININE 150.9 mg/dL Sep 03, 2024 01:35 PM [facility] URINE LYTES URINE Specimen Type : URINE Comment: ~Altered mental status with no identifiable cause Ordering Provider: FRANCK TURNER Report Released Date/Time: Sep 02, 2024 04:44 PM Reporting Lab: [address] [address] Performing Lab: [address] [address] SODIUM 130 mmol/L POTASSIUM 47.6 mmol/L CHLORIDE 137 mmol/L Sep 03, 2024 01:35 PM [facility] UREA NITROGEN URINE Specimen Type : URINE Comment: ~Altered mental status with no identifiable cause Ordering Provider: FRANCK TURNER Report Released Date/Time: Sep 02, 2024 04:44 PM Reporting Lab: [address] [address] Performing Lab: [address] [address] UREA NITROGEN 320 mg/dL Sep 03, 2024 01:35 PM [facility] OSMOLALITY URINE Specimen Type: URINE Comment: ~Altered mental status with no identifiable cause Ordering Provider: FRANCK TURNER Report Released Date/Time: Sep 02, 2024 04:44 PM Reporting Lab: [address] [address] Performing Lab: [address] [address] OSMOLALITY 522 mosm/kg 38-1400 Sep 03, 2024 01:35 PM [facility] URINALYSIS WITH REFLEX TO CULTURE URINE Specimen Type: URINE Comment: ~Altered mental status with no identifiable cause Ordering Provider: FRANCK TURNER Report Released Date/Time: Sep 02, 2024 04:44 PM Reporting Lab: [address] [address] Performing Lab: [address] [address] URINE COLOR Yellow Colorless-Yellow APPEARANCE CLOUDY H [...] H 0-28 Sep 03, 2024 11:58 AM [facility] GLUCOSE-HAND MONITOR CAPILLARY Specime n Type: CAPILLARY Comment: AAMIR RN notified Test performed by: [id number] Meter #: [id number] Ordering Provider: FRANCK TURNER Report Released Date/Time: Sep 03, 2024 12:15 PM Reporting Lab: [address] [address] Performing Lab: [address] [address] GLUCOSE-HAND MONITOR 135 mg/dL H Sep 03, 2024 07:09 AM [facility] GLUCOSE-HAND MONITOR CAPILLARY Specime n Type: CAPILLARY Comment: Test performed by: [id number] Meter #: [id number] Ordering Provider: FRANCK TURNER Report Released Date/Time: Sep 03, 2024 07:26 AM Reporting Lab: [address] [address] Performing Lab: [address] [address] GLUCOSE-HAND MONITOR 120 mg/dL H -Sep 03, 2024 07:05 AM [facility] MAGNESIUM PLASMA Specimen Type: PLASM [...] Sep 02, 2024 04:29 PM Reporting Lab: [address] [address] Performing Lab: [address] [address] MAGNESIUM 1.7 mg/dL 1.6-2.6 Sep 03, 2024 07:05 AM [facility] CBC/PLT BLOOD Specimen Type: BLOOD No comment entered. Ordering Provider: FRANCK TURNER Report Released Date/Time: Sep 02, 2024 04:29 PM Reporting Lab: [facility] [address] [facility] [address] Performing Lab: [address] [address] WBC 6.9 10*3/uL 5.0-10.0 RBC 3.48 10*6/uL L 4.6-6.2 HGB 9.5 g/dL L 14.0-18.0 HCT 29.1 L 42.0-52.0 MCV 83.6 fL 80.0-94.0 MCH 27.3 pg 27.0-31.0 MCHC 32.6 g/dL 32.0-36.0 PLT 258 10*3/uL 150-450 MPV 10.3 fL 9.0-13.1 RDW 14.8 11.0-16.0 NRBC 0.0 0.0-0.0 Sep 03, 2024 07:05 AM [facility] PANEL 1 PLASMA Specimen Type: [...] Sep 02, 2024 04:29 PM Reporting Lab: [address] [address] Performing Lab: [address] [address] CREATININE 0.82 mg/dL 0.72-1.25 UREA NITROGEN 12 mg/dL 9-25 GLUCOSE 109 mg/dL H 74-100 SODIUM 129 mmol/L L 136-145 POTASSIUM 4.2 mmol/L 3.5-5.1 CHLORIDE 99 mmol/L 98-107 CO2 21 mmol/L L 22-29 CALCIUM 8.1 mg/dL L 8.4-10.2 ANION GAP 9 meq/L 3-19 eGFR (CKD-EPI) 90 Sep 03, 2024 07:05 AM [facility] GLYCOHEMOGLOBIN BLOOD Specimen Type: BLOOD Comment: Prediabetes: 5.7%-6.4% Diabetes: >= 6.5% [facility] guidelines for A1c interpretation: Glycemic control targets are based on Shared Decision Making between clinicians and patients. Criteria used to establish an A1c target recommendation can be found at https://www.in.gov/qualityandpatientsafety/ and include the use of result accuracy [...] 8.73 and 9.27. Ref: https://ngsp.org/CAPdata.asp. The in-house [employer] D-100 analyzer has a historical CV <= 2%. Contact the laboratory for further performance characteristics of this assay. Ordering Provider: FRANCK TURNER Report Released Date/Time: Sep 02, 2024 04:29 PM Reporting Lab: [address] [address] Performing Lab: [place] [phone] GLYCOHEMOGLOBIN 5.6 4.4-5.6 Sep 03, 2024 07:05 AM [facility] OSMOLALITY SERUM Specimen Type: SERUM No comment entered. Ordering Provider: FRANCK TURNER Report Released Date/Time: Sep 02, 2024 04:44 PM Reporting Lab: [address] [address] Performing Lab: [address] [address] OSMOLALITY 271 mosm/kg L 280-300 Sep 02, 2024 08:15 PM [facility] GLUCOSE-HAND MONITOR CAPILLARY Specime n Type: CAPILLARY Comment: AAMIR DEXTER notified Test performed by: [id number] Meter #: [id number] Ordering Provider: FRANCK TURNER Report Released Date/Time: Sep 02, 2024 08:57 PM Reporting Lab: [address] [address] Performing Lab: [address] [address] GLUCOSE-HAND MONITOR 126 mg/dL H 71-99 Sep 02, 2024 06:10 PM [facility] MRSA SURVL NARES DNA NARES [...] Sep 02, 2024 05:12 PM Reporting Lab: [address] [address] Performing Lab: [address] [address] MRSA SURVL NARES DNA Negative Negative Sep 02, 2024 05:36 PM [facility] GLUCOSE-HAND MONITOR CAPILLARY Specime n Type: CAPILLARY Comment: Test performed by: [id number] Meter #: [id number] Ordering Provider: FRANCK TURNER Report Released Date/Time: Sep 02, 2024 05:53 PM Reporting Lab: [address] [address] Performing Lab: [address] [address] GLUCOSE-HAND MONITOR 127 mg/dL H 71-99 Aug 29, 2024 10:04 PM [facility] URINALYSIS WITH REFLEX TO CULTURE URINE Specimen Type: URINE Comment: ~For Test: URINALYSIS WITH REFLEX TO CULTURE ~REORDER Ordering Provider: FELISA COLE Report Released Date/Time: Aug 29, 2024 09:36 PM Reporting Lab: [address] [address] Performing Lab: [address] [address] URINE COLOR Yellow Colorless-Yellow APPEARANCE Clear Clear [...] /[LPF] 0-28 Aug 29, 2024 08:32 PM [facility] HIGH SENSITIVITY TROPONIN I PLASMA Specimen [...] 29, 2024 07:55 PM Reporting Lab: [address] [address] Performing Lab: [address] [address] HIGH SENSITIVITY TROPONIN I 7 4-35 Aug 29, 2024 08:32 PM [facility] CBC/PLT BLOOD Specimen Type: BLOOD No comment entered. Ordering Provider: FELISA COLE Report Released Date/Time: Aug 29, 2024 07:55 PM Reporting Lab: [address] [address] Performing Lab: [address] [address] WBC 11.2 10*3/uL H 5.0-10.0 RBC 3.97 10*6/uL L 4.6-6.2 HGB 10.9 g/dL L 14.0-18.0 HCT 33.5 L 42.0-52.0 MCV 84.4 fL 80.0-94.0 MCH 27.5 pg 27.0-31.0 MCHC 32.5 g/dL 32.0-36.0 PLT 230 10*3/uL 150-450 MPV 10.2 fL 9.0-13.1 RDW 14.6 11.0-16.0 NRBC 0.0 0.0-0.0 Aug 29, 2024 08:32 PM [facility] PANEL 5 PLASMA Specimen Type: [...] 29, 2024 07:55 PM Reporting Lab: [address] [address] Performing Lab: [address] [address] CREATININE 0.85 mg/dL 0.72-1.25 UREA NITROGEN 15 [...] 10:21 PM 0 [place] Sep 04, 2024 08:38 PM 99.2 F 86 /min 127/68 mm[Hg] 18 /min 93 % 0 [place] Sep 04, 2024 07:06 PM 1 [place] Sep 04, 2024 06:44 PM 2 [place] Sep 04, 2024 06:39 PM 99.9 F 76 /min 154/68 mm[Hg] 90 % [place] [facility] Advance Directives: All historical and current Section [...] 08, 2024 ADVANCE DIRECTIVE DISCUSSION [facility] Radiology Reports: +/- 30 [...] W & W/O: LUIS MANUEL PERDOMO FABIAN [id number] -1945 M Exm Date: SEP 06, 2024@13:40 Req Phys: FRANCK TURNER Loc: 5-MED/TEL/09-06-2024@19:09 Img Loc: [facility] Service: [place] [address] (Case [id number] COMPLETE) MRI BRAIN W & W/O (MRI Detailed) CPT:43483 Contrast Media : Gadolinium Reason for Study: SEE CLINICAL HISTORY Pharmaceutical: GADOTERIDOL 279.3MG/ML 20ML INJ, 19ml Clinical History: MRI Screening (Required): IMPLANTED DEVICE DOCUMENTATION IMPLANTED DEVICE DOCUMENTATION NOT FOUND Does the have any Cardiac Implants? None Does the Matheny have any implanted stimulators? None Does the Matheny have cochlear implants? No Does the Matheny have Cerebral aneurysm clip(s)? I don't know Does the Matheny have any shrapnel? I don't know If yes, where in your body? Please list other implants not listed above: MRI table has a weight limit of 551 lbs. Matheny's Weight: *212 lb [96.16 kg] (09/04/2024 05:19) Is this patient claustrophobic?: No REASON FOR EXAM:MULTIPLE SCLEROSIS (indicate suspected or established) PERTINENT PATIENT HISTORY: MS c/f for flare Risk factors for GADOLINIUM NEPHROGENIC SYSTEMIC SCLEROSIS: Report Status: Verified Date Reported: SEP 06, 2024 Date Verified: SEP 06, 2024 Script Worker E-Sig: Report: MRI brain without and with [...] Staff: ARCENIO LEYVA, Staff Radiologist Verified by cytogenetic technologist for ARCENIO LEYVA /ARCENIO AVILA-[facility] Sep 06, 2024 01:40 PM MRI C SPINE W & W/ O CONTRAST(FURTHER SEQUENCES): LUIS MANUEL PERDOMO [id number] -1945 M Exm Date: SEP 06, 2024@13:40 Req Phys: FRANCK TURNERISIAHFLOSav Pat Loc: 5-MED/TEL/09-07-2024@06:42 Img Loc: [facility] Service: [facility] [place] [id number] (Case [id number] COMPLETE) MRI C SPINE W & W/O CONTRAST(FURT(MRI Detailed) CPT:71246 Contrast Media : Gadolinium Reason for Study: SEE CLINICAL HISTORY Pharmaceutical: GADOTERIDOL 279.3MG/ML 20ML INJ, 19ml Clinical History: STATUS OF PLAIN FILMS:Not performed (Provide justification for MR W/O prior plain films below.) MRI for MS MRI Screening (Required): IMPLANTED DEVICE DOCUMENTATION IMPLANTED DEVICE DOCUMENTATION NOT FOUND Does the Matheny have any Cardiac Implants? None Does the have any implanted stimulators? None Does the have cochlear implants? No Does the Matheny have Cerebral aneurysm clip(s)? I don't know [...] 07, 2024 Date Verified: SEP 07, 2024 Script Worker E-Sig: Report: EXAMINATION: MRI OF THE CERVICAL [...] Interpreting Staff: HUANG TAI, Radiologist Verified by cytogenetic technologist for HUANG TAI /HUANG WHEATLEY-Sav [facility] Sep 03, 2024 10:45 AM CHEST SINGLE(1) EW: LUIS MANUEL PERDOMO [id number] -1945 M Exm Date: SEP 03, 2024@10:45 Req Phys: FRANCK TURNER Pat Loc: 5-MED/TEL/09-03-2024@10:56 Img Loc: [facility] RADIOLOGY Service: [place] [address] (Case [id number] COMPLETE)CHEST SINGLE(1) VIEW (RAD Detailed) CPT:20777 Proc Modifiers : PORTABLE EXAM Reason for Study: Eval volume status Clinical History: Report Status: Verified Date Reported: SEP 03, 2024 Date Verified: SEP 03, 2024 Script Worker E-Sig: Report: EXAMINATION: SINGLE VIEW CHEST CLINICAL [...] Interpreting Staff: HUANG TAI, Radiologist Verified by cytogenetic technologist for HUANG TAI /HUANG WHEATLEY-[facility] Aug 29, 2024 08:[address] HEAD W/O CONT: LUIS MANUEL PERDOMO [id number] -1945 M Exm Date: AUG 29, 2024@20:28 Req Phys: FELISA COLE Loc: ED/4P-12A (Req'g Loc) Img Loc: CT SCAN Service: [place] [address] (Case [id number] COMPLETE) CT HEAD W/O CONT (CT Detailed) CPT:78620 Reason for Study: SEE CLINICAL HISTORY Clinical History: REASON FOR SEND OUT: ATTENDING PHYSICIAN NAME: New transient neurological s/s - suspected TIA HISTORY/REASON FOR EXAM: confusion Report Status: Verified Date Reported: AUG 29, 2024 Date Verified: AUG 29, 2024 Script Worker E-Sig: Report: HISTORY confusion COMPARISON No prior [...] Staff: ABDIRAHMAN CROW, Staff Physician Verified by cytogenetic technologist for ABDIRAHMAN CROW /[facility] Reports: +/- 30 days [...] Reporting Lab: [facility] [CLIA# [id number]] [address] [place] [id number] Accession [UID]: [id number] [[id number]] Received: Sep 03, 2024@14:02 Collection sample: URINE, [...] Performed By: [facility] [CLIA# [id number]] [address] [place] [id number] [facility] Sep 02, 2024 06:00 PM LR MICROBIOLOGY RE PORT: Reporting Lab: [facility] [CLIA# [id number]] [address] [place], [place] [id number] Accession [UID]: [id number] [[id number]] Received: Sep 02, 2024@18:07 Collection sample: BLD CULTURE BOTTLES Collection date: Sep 02, 2024 18:00 Site/Specimen: BLOOD Provider: FRANCK TURNER Comment on specimen: L HAND Test(s) ordered: CULTURE, BLOOD................ completed: Sep 08, 2024 * BACTERIOLOGY FINAL REPORT => Sep 08, 2024 08:25 TECH CODE: [id number] Bacteriology Remark(s): Blood culture status=NO GROWTH (unless notified otherwise) 09/03/2024 AEROBIC: NO GROWTH ANAEROBIC: NO GROWTH =--=--=--=--=--=--=--=--=--=-- =--=--=--=--=--=--=--=--=--=-- =--=--=--=--=--=-- Performing Laboratory: Bacteriology Report Performed By: [facility] [CLIA# [id number]] [address] [place] [address] MAGDY CALABRESE-Sav [facility] Aug 29, 2024 10:18 PM LR MICROBIOLOGY RE PORT: Reporting Lab: [facility] [CLIA# [id number]] [address] [place] [address] Accession [UID]: [id number] [[id number]] Received: Aug 29, 2024@22:18 Collection sample: URINE, CLEAN CATCH Collection date: Aug 29, 2024 22:18 Site/Specimen: URINE Provider: FELISA COLE Test(s) ordered: CULTURE, URINE................ completed: Aug 31, 2024 09:51 * BACTERIOLOGY FINAL REPORT => Aug 31, 2024 09:51 TECH CODE: [id number] Bacteriology Remark(s): NO GROWTH 08/30/2024 <10,000 CFU/ML. 08/31/2024 =--=--=--=--=--=--=--=--=--=-- =--=--=--=--=--=--=--=--=--=-- =--=--=--=--=--=-- Performing Laboratory: Bacteriology Report Performed By: [facility] [IA# [id number]] [address] [place] [address] MAGDY CALABRESE-[facility]
--- OUTSIDE RECORDS SUMMARY | 2024-09-04 17:12 | XMS_ITS ---
[place] DAILY HOSPITALIZATION DATA [facility] Encounter Summary Created on: September 22, 2024 LUIS MANUEL PERDOMO : 1945 Sex: Male Author Name [facility] Organization [facility] [place] Address [address] [place] [address] Care Team Providers Care Relationship Executive Name Role Phone YULISSA HENDERSON Primary Care [...] PLAN F Mar 24, 2014 PLAN F [id number] LUIS MANUEL PERDOMO PATIENT [facility] [place] BLUECARD PREFERRED PROVIDER ORGANIZAT ION (PPO) [facility] Sep 21, 2012 [id number] LUIS MANUEL PERDOMO PATIENT [employer] ([id number]) PRESCRIPT ION WL3A Sep 21, 2012 [id number] LUIS MANUEL PERDOMO PATIENT MEDICARE (WNR) MEDICARE (M) PART B Sep 21, 2012 PART B [id number] NOEMI PERDOMO PATIENT MEDICARE (WNR) MEDICARE (M) PART A Jan 22, 2011 PART A [id number] LEANNE, NOEMI PATIENT MEDICARE PART D (WNR) MEDICARE (M) PART D Mar 24, 2014 PART D [id number] LUIS MANUEL PERDOMO PATIENT Selected Encounter This section includes the information on record at [place] for the Encounter. Date/Time Encounter Type Encounter Description Reason Pro vider Source Sep 04, 2024 09:12 PM Inpatient Visit DAILY HOSPITALIZATION DATA [facility] Encounter Template Text not used by [place] Plan of Treatment: Future Appointments (+ 6 months) and Future Tests (+/- 45 days) The Plan of Treatment section includes future care activities for the patient [facility] [place] [facility]. This section includes future appointments [...] 13, 2024 08:00 AM AMBULATORY - NONE [facility] Sep 30, 2024 01:30 PM AMBULATORY - SURGERY [place] [facility] Active, Pending, and Scheduled Orders This section includes a listing of several types of active, pending, and scheduled orders, including clinic medications orders, diagnostic test orders, procedure orders and consult orders; where the start date of the order is 45 days before the date of the Encounter or 45 days after the date of theEncounter. The data comes from all [facility] facilities. Test Date/Time Test Type Test Details Facility Name Sep 13, 2024 01:33 PM Consult Order [facility] SK[facility] CARE Cons Manager Of Applications Development's Choice [facility] Lab Results: +/- [...] Type Comment Sep 09, 2024 12:16 PM [facility] GLUCOSE-HAND MONITOR CAPILLARY Specimen Type: CAPILLARY Comment: Test performed by: [id number] Meter #: [id number] Ordering Provider: FRANCK TURNER Report Released Date/Time: Sep 09, 2024 12:33 PM Reporting Lab: [address] [address] Performing Lab: [address] [address] GLUCOSE-HAND MONITOR 116 mg/dL H Sep 09, 2024 06:07 AM [facility] GLUCOSE-HAND MONITOR CAPILLARY Specime n Type: CAPILLARY Comment: Test performed by: [id number] Meter #: [id number] Ordering Provider: FRANCK TURNER Report Released Date/Time: Sep 09, 2024 08:17 AM Reporting Lab: [address] [address] Performing Lab: [address] [address] GLUCOSE-HAND MONITOR 112 mg/dL H Sep 08, 2024 09:13 PM [facility] GLUCOSE-HAND MONITOR CAPILLARY Specime n Type: CAPILLARY Comment: Test performed by: [id number] Meter #: [id number] Ordering Provider: FRANCK TURNER Report Released Date/Time: Sep 08, 2024 09:31 PM Reporting Lab: [address] [address] Performing Lab: [address] [address] GLUCOSE-HAND MONITOR 107 mg/dL H Sep 08, 2024 03:49 PM [facility] GLUCOSE-HAND MONITOR CAPILLARY Specime n Type: CAPILLARY Comment: AAMIR RN notified Test performed by: [id number] Meter #: [id number] Ordering Provider: FRANCK TURNER Report Released Date/Time: Sep 08, 2024 04:33 PM Reporting Lab: [address] [address] Performing Lab: [address] [address] GLUCOSE-HAND MONITOR 162 mg/dL H Sep 08, 2024 11:43 AM [facility] GLUCOSE-HAND MONITOR CAPILLARY Specime n Type: CAPILLARY Comment: AAMIR RN notified Test performed by: [id number] Meter #: [id number] Ordering Provider: FRANCK TURNER Report Released Date/Time: Sep 08, 2024 12:03 PM Reporting Lab: [address] [address] Performing Lab: [address] [address] GLUCOSE-HAND MONITOR 133 mg/dL H Sep 08, 2024 06:13 AM [facility] GLUCOSE-HAND MONITOR CAPILLARY Specime n Type: CAPILLARY Comment: Test performed by: [id number] Meter #: [id number] Ordering Provider: FRANCK TURNER Report Released Date/Time: Sep 08, 2024 06:46 AM Reporting Lab: [address] [address] Performing Lab: [address] [address] GLUCOSE-HAND MONITOR 104 mg/dL H Sep 07, 2024 07:59 PM [facility] GLUCOSE-HAND MONITOR CAPILLARY Specime n Type: CAPILLARY Comment: Test performed by: [id number] Meter #: [id number] Ordering Provider: FRANCK TURNER Report Released Date/Time: Sep 07, 2024 09:05 PM Reporting Lab: [address] [address] Performing Lab: [address] [address] GLUCOSE-HAND MONITOR 107 mg/dL H Sep 07, 2024 04:39 PM [facility] GLUCOSE-HAND MONITOR CAPILLARY Specime n Type: CAPILLARY Comment: Test performed by: [id number] Meter #: [id number] Ordering Provider: FRANCK TURNER Report Released Date/Time: Sep 07, 2024 05:09 PM Reporting Lab: [address] [address] Performing Lab: [address] [address] GLUCOSE-HAND MONITOR 105 mg/dL H Sep 07, 2024 11:41 AM [facility] GLUCOSE-HAND MONITOR CAPILLARY Specime n Type: CAPILLARY Comment: Test performed by: [id number] Meter #: [id number] Ordering Provider: FRANCK TURNER Report Released Date/Time: Sep 07, 2024 12:41 PM Reporting Lab: [address] [address] Performing Lab: [address] [address] GLUCOSE-HAND MONITOR 144 mg/dL H Sep 07, 2024 05:56 AM [facility] GLUCOSE-HAND MONITOR CAPILLARY Specime n Type: CAPILLARY Comment: Test performed by: [id number] Meter #: [id number] Ordering Provider: FRANCK TURNER Report Released Date/Time: Sep 07, 2024 06:31 AM Reporting Lab: [address] [address] Performing Lab: [address] [address] GLUCOSE-HAND MONITOR 96 mg/dL Sep 06, 2024 08:10 PM [facility] GLUCOSE-HAND MONITOR CAPILLARY Specime n Type: CAPILLARY Comment: Test performed by: [id number] Meter #: [id number] Ordering Provider: FRANCK TURNER Report Released Date/Time: Sep 06, 2024 08:52 PM Reporting Lab: [address] [address] Performing Lab: [address] [address] GLUCOSE-HAND MONITOR 124 mg/dL H Sep 06, 2024 04:27 PM [facility] GLUCOSE-HAND MONITOR CAPILLARY Specime n Type: CAPILLARY Comment: Test performed by: [id number] Meter #: [id number] Ordering Provider: FRANCK TURNER Report Released Date/Time: Sep 06, 2024 05:15 PM Reporting Lab: [address] [address] Performing Lab: [address] [address] GLUCOSE-HAND MONITOR 107 mg/dL H Sep 06, 2024 12:12 PM [facility] GLUCOSE-HAND MONITOR CAPILLARY Specime n Type: CAPILLARY Comment: Test performed by: [id number] Meter #: [id number] Ordering Provider: FRANCK TURNER Report Released Date/Time: Sep 06, 2024 12:29 PM Reporting Lab: [address] [address] Performing Lab: [address] [address] GLUCOSE-HAND MONITOR 181 mg/dL H -Sep 06, 2024 06:13 AM [facility] GLUCOSE-HAND MONITOR CAPILLARY Specime n Type: CAPILLARY Comment: Test performed by: [id number] Meter #: [id number] Ordering Provider: FRANCK TURNER Report Released Date/Time: Sep 06, 2024 06:36 AM Reporting Lab: [address] [address] Performing Lab: [address] [address] GLUCOSE-HAND MONITOR 102 mg/dL H Sep 05, 2024 08:47 PM [facility] GLUCOSE-HAND MONITOR CAPILLARY Specime n Type: CAPILLARY Comment: Test performed by: [id number] Meter #: [id number] Ordering Provider: FRANCK TURNER Report Released Date/Time: Sep 06, 2024 02:13 AM Reporting Lab: [address] [address] Performing Lab: [address] [address] GLUCOSE-HAND MONITOR 103 mg/dL H Sep 05, 2024 04:40 PM [facility] GLUCOSE-HAND MONITOR CAPILLARY Specime n Type: CAPILLARY Comment: AAMIR RN notified Test performed by: [id number] Meter #: [id number] Ordering Provider: FRANCK TURNER Report Released Date/Time: Sep 05, 2024 05:11 PM Reporting Lab: [address] [address] Performing Lab: [address] [address] GLUCOSE-HAND MONITOR 113 mg/dL H Sep 05, 2024 12:06 PM [facility] GLUCOSE-HAND MONITOR CAPILLARY Specime n Type: CAPILLARY Comment: Test performed by: [id number] Meter #: [id number] Ordering Provider: FRANCK TURNER Report Released Date/Time: Sep 05, 2024 12:23 PM Reporting Lab: [address] [address] Performing Lab: [address] [address] GLUCOSE-HAND MONITOR 115 mg/dL H Sep 05, 2024 06:26 AM [facility] GLUCOSE-HAND MONITOR CAPILLARY Specime n Type: CAPILLARY Comment: AAMIR Correction Dose Test performed by: [id number] Meter #: [id number] Ordering Provider: FRANCK TURNER Report Released Date/Time: Sep 05, 2024 06:43 AM Reporting Lab: [address] [address] Performing Lab: [address] [address] GLUCOSE-HAND MONITOR 111 mg/dL H Sep 04, 2024 08:59 PM [facility] GLUCOSE-HAND MONITOR CAPILLARY Specime n Type: CAPILLARY Comment: AAMIR RN notified Test performed by: [id number] Meter #: [id number] Ordering Provider: FRANCK TURNER Report Released Date/Time: Sep 04, 2024 09:36 PM Reporting Lab: [address] [address] Performing Lab: [address] [address] GLUCOSE-HAND MONITOR 123 mg/dL H Sep 04, 2024 04:41 PM [facility] GLUCOSE-HAND MONITOR CAPILLARY Specime n Type: CAPILLARY Comment: AAMIR RN notified Test performed by: [id number] Meter #: [id number] Ordering Provider: FRANCK TURNER Report Released Date/Time: Sep 04, 2024 05:03 PM Reporting Lab: [address] [address] Performing Lab: [address] [address] GLUCOSE-HAND MONITOR 118 mg/dL H Sep 04, 2024 12:36 PM [facility] GLUCOSE-HAND MONITOR CAPILLARY Specime n Type: CAPILLARY Comment: AAMIR RN notified Test performed by: [id number] Meter #: [id number] Ordering Provider: FRANCK TURNER Report Released Date/Time: Sep 04, 2024 12:53 PM Reporting Lab: [address] [address] Performing Lab: [place] [address] GLUCOSE-HAND MONITOR 129 mg/dL H 71-99 Sep 04, 2024 12:03 PM [facility] RESPIRATORY VIRUS PANEL (BIOFIRE) NASOPHARYN X Specimen Type: NASOPHARYNX Comment: ~For Test: RESPIRATORY VIRUS PANEL (BIOFIRE) ~ORDER READ BACK TO: FRANCK TURNER 09/04/24@11:30 Ordering Provider: FRANCK TURNER Report Released Date/Time: Sep 04, 2024 11:33 AM Reporting Lab: [place] [phone] Performing Lab: [place] [phone] ADENOVIRUS (BIOFIRE) Not Detected -Not D etected [...] 03, 2024 11:10 AM Reporting Lab: [place] [facility] [address] [facility] [address] Performing Lab: [place] [address] [facility] [address] MAGNESIUM 1.8 mg/dL 1.6-2.6 Sep 04, 2024 [...] Sep 03, 2024 11:10 AM Reporting Lab: [address] [address] Performing Lab: [address] CREATININE 0.75 mg/dL 0.72-1.25 UREA NITROGEN [...] n Type: CAPILLARY Comment: Test performed by: [id number] Meter #: [id number] Ordering Provider: FRANCK TURNER Report Released Date/Time: Sep 04, 2024 06:28 AM Reporting Lab: [address] Performing Lab: [address] GLUCOSE-HAND MONITOR 114 mg/dL H 71-99 Sep 03, 2024 05:19 PM [facility] GLUCOSE-HAND MONITOR CAPILLARY Specime n Type: CAPILLARY Comment: Test performed by: [id number] Meter #: [id number] Ordering Provider: FRANCK TURNER Report Released Date/Time: Sep 03, 2024 05:37 PM Reporting Lab: [address] Performing Lab: [address] [address] GLUCOSE-HAND MONITOR 124 mg/dL H 71-99 Sep 03, 2024 04:41 PM [facility] GLUCOSE-HAND MONITOR CAPILLARY Specime n Type: CAPILLARY Comment: Test performed by: [id number] Meter #: [id number] Ordering Provider: FRANCK TURNER Report Released Date/Time: Sep 03, 2024 06:09 PM Reporting Lab: [address] [address] Performing Lab: [address] [address] GLUCOSE-HAND MONITOR 112 mg/dL H 71-99 Sep 03, 2024 01:35 PM [facility] URINE LYTES URINE Specimen Type : URINE Comment: ~Altered mental status with no identifiable cause Ordering Provider: FRANCK TURNER Report Released Date/Time: Sep 02, 2024 04:44 PM Reporting Lab: [address] [address] Performing Lab: [address] [address] SODIUM 130 mmol/L POTASSIUM 47.6 mmol/L CHLORIDE 137 mmol/L Sep 03, 2024 01:35 PM [facility] CREATININE URINE Specimen Type: URINE Comment: ~Altered mental status with no identifiable cause Ordering Provider: FRANCK TURNER Report Released Date/Time: Sep 02, 2024 04:44 PM Reporting Lab: [address] [address] Performing Lab: [address] [address] CREATININE 150.9 mg/dL Sep 03, 2024 01:35 PM [facility] OSMOLALITY URINE Specimen Type: URINE Comment: ~Altered mental status with no identifiable cause Ordering Provider: FRANCK TURNER Report Released Date/Time: Sep 02, 2024 04:44 PM Reporting Lab: [address] [address] Performing Lab: [address] [address] OSMOLALITY 522 mosm/kg 38-1400 Sep 03, 2024 01:35 PM [facility] UREA NITROGEN URINE Specimen Type : URINE Comment: ~Altered mental status with no identifiable cause Ordering Provider: FRANCK TURNER Report Released Date/Time: Sep 02, 2024 04:44 PM Reporting Lab: [address] [address] Performing Lab: [address] [address] UREA NITROGEN 320 mg/dL Sep 03, 2024 01:35 PM [facility] URINALYSIS WITH REFLEX TO CULTURE URINE Specimen Type: URINE Comment: ~Altered mental status with no identifiable cause Ordering Provider: FRANCK TURNER Report Released Date/Time: Sep 02, 2024 04:44 PM Reporting Lab: [address] [address] Performing Lab: [address] [address] URINE COLOR Yellow Colorless-Yellow APPEARANCE CLOUDY H [...] Comment: AAMIR RN notified Test performed by: [id number] Meter #: [id number] Ordering Provider: FRANCK TURNER Report Released Date/Time: Sep 03, 2024 12:15 PM Reporting Lab: [address] [address] Performing Lab: [address] [address] GLUCOSE-HAND MONITOR 135 mg/dL H Sep 03, 2024 07:09 AM [facility] GLUCOSE-HAND MONITOR CAPILLARY Specime n Type: CAPILLARY Comment: Test performed by: [id number] Meter #: [id number] Ordering Provider: FRANCK TURNER Report Released Date/Time: Sep 03, 2024 07:26 AM Reporting Lab: [address] [address] Performing Lab: [address] [address] GLUCOSE-HAND MONITOR 120 mg/dL H -Sep 03, [...] Sep 02, 2024 04:29 PM Reporting Lab: [address] [address] Performing Lab: [address] [address] CREATININE 0.82 mg/dL 0.72-1.25 UREA NITROGEN 12 [...] Sep 02, 2024 04:29 PM Reporting Lab: [address] [address] Performing Lab: [address] [address] WBC 6.9 10*3/uL 5.0-10.0 RBC 3.48 10*6/uL [...] Sep 02, 2024 04:29 PM Reporting Lab: [address] [address] Performing Lab: [address] [address] MAGNESIUM 1.7 mg/dL 1.6-2.6 Sep 03, 2024 07:05 AM [facility] GLYCOHEMOGLOBIN BLOOD Specimen Type: BLOOD Comment: Prediabetes: 5.7%-6.4% Diabetes: >= 6.5% [place] guidelines for A1c interpretation: Glycemic control targets are based on Shared Decision Making between clinicians and patients. Criteria used to establish an A1c target recommendation can be found at https://www.[place].gov/qualityandpatientsafety/ and include the use of result accuracy [...] 8.73 and 9.27. Ref: https://ngsp.org/CAPdata.asp. The in-house [employer] Medium D-100 analyzer has a historical CV <= 2%. Contact the laboratory for further performance characteristics of this assay. Ordering Provider: FRANCK TURNER Report Released Date/Time: Sep 02, 2024 04:29 PM Reporting Lab: [address] [address] Performing Lab: [place] [phone] GLYCOHEMOGLOBIN 5.6 4.4-5.6 Sep 03, 2024 07:05 AM [facility] OSMOLALITY SERUM Specimen Type: SERUM No comment entered. Ordering Provider: FRANCK TURNER Report Released Date/Time: Sep 02, 2024 04:44 PM Reporting Lab: [address] [address] Performing Lab: [address] [address] OSMOLALITY 271 mosm/kg L 280-300 Sep 02, 2024 08:15 PM [facility] GLUCOSE-HAND MONITOR CAPILLARY Specime n Type: CAPILLARY Comment: AAMIR DEXTER notified Test performed by: [id number] Meter #: [id number] Ordering Provider: FRANCK TURNER Report Released Date/Time: Sep 02, 2024 08:57 PM Reporting Lab: [address] [address] Performing Lab: [address] [address] GLUCOSE-HAND MONITOR 126 mg/dL H 71-99 Sep [...] Sep 02, 2024 05:12 PM Reporting Lab: [address] [address] Performing Lab: [address] [address] MRSA SURVL NARES DNA Negative Negative Sep 02, 2024 05:36 PM [facility] GLUCOSE-HAND MONITOR CAPILLARY Specime n Type: CAPILLARY Comment: Test performed by: [id number] Meter #: [id number] Ordering Provider: FRANCK TURNER Report Released Date/Time: Sep 02, 2024 05:53 PM Reporting Lab: [address] [address] Performing Lab: [address] [address] GLUCOSE-HAND MONITOR 127 mg/dL H 71-99 Aug 29, 2024 10:04 PM [facility] URINALYSIS WITH REFLEX TO CULTURE URINE Specimen Type: URINE Comment: ~For Test: URINALYSIS WITH REFLEX TO CULTURE ~REORDER Ordering Provider: FELISA COLE Report Released Date/Time: Aug 29, 2024 09:36 PM Reporting Lab: [address] [address] Performing Lab: [address] [address] URINE COLOR Yellow Colorless-Yellow APPEARANCE Clear Clear [...] /[LPF] 0-28 Aug 29, 2024 08:32 PM [facility]IGH SENSITIVITY TROPONIN I PLASMA Specimen Ty [...] Aug 29, 2024 07:55 PM Reporting Lab: [address] [address] Performing Lab: [address] [address] HIGH SENSITIVITY TROPONIN I 7 4-35 Aug 29, 2024 08:32 PM [facility] CBC/PLT BLOOD Specimen Type: BLOOD No comment entered. Ordering Provider: FELISA COLE Report Released Date/Time: Aug 29, 2024 07:55 PM Reporting Lab: [address] [address] Performing Lab: [address] [address] WBC 11.2 10*3/uL H 5.0-10.0 RBC 3.97 10*6/uL L 4.6-6.2 HGB 10.9 g/dL L 14.0-18.0 HCT 33.5 L 42.0-52.0 MCV 84.4 fL 80.0-94.0 MCH 27.5 pg 27.0-31.0 MCHC 32.5 g/dL 32.0-36.0 PLT 230 10*3/uL 150-450 MPV 10.2 fL 9.0-13.1 RDW 14.6 11.0-16.0 NRBC 0.0 0.0-0.0 Aug 29, 2024 08:32 PM [facility] PANEL 5 PLASMA Specimen Type: PLASM A [...] Aug 29, 2024 07:55 PM Reporting Lab: [address] [address] Performing Lab: [address] [address] CREATININE 0.85 mg/dL 0.72-1.25 UREA NITROGEN 15 [...] 04, 2024 10:21 PM 0 [place] Sep 04, 2024 08:38 PM 99.2 F 86 /min 127/68 mm[Hg] 18 /min 93 % 0 [place] Sep 04, 2024 07:06 PM 1 [place] [facility] Sep 04, 2024 06:44 PM 2 [place] [facility] Sep 04, 2024 06:39 PM 99.9 F 76 /min 154/68 mm[Hg] 90 % [place] Advance Directives: All historical and current [...] 08, 2024 ADVANCE DIRECTIVE DISCUSSION [facility] Radiology Reports: +/- 30 days of [...] W & W/O: LUIS MANUEL PERDOMO FABIAN [id number] -1945 M Exm Date: SEP 06, 2024@13:40 Req Phys: FRANCK TURNER Loc: 5-MED/TEL/09-06-2024@19:09 Img Loc: [facility] Service: [place] [address] (Case [id number] COMPLETE) MRI BRAIN W & W/O (MRI Detailed) CPT:74697 Contrast Media : Gadolinium Reason for Study: SEE CLINICAL HISTORY Pharmaceutical: GADOTERIDOL 279.3MG/ML 20ML INJ, 19ml Clinical History: MRI Screening (Required): IMPLANTED DEVICE DOCUMENTATION IMPLANTED DEVICE DOCUMENTATION NOT FOUND Does the have any Cardiac Implants? None Does the Marcella have any implanted stimulators? None Does the Marcella have cochlear implants? No Does the Marcella have Cerebral aneurysm clip(s)? I don't know Does the Marcella have any shrapnel? I don't know If yes, where in your body? Please list other implants not listed above: MRI table has a weight limit of 551 lbs. Marcella's Weight: *212 lb [96.16 kg] (09/04/2024 05:19) Is this patient claustrophobic?: No REASON FOR EXAM:MULTIPLE SCLEROSIS (indicate suspected or established) PERTINENT PATIENT HISTORY: MS c/f for flare Risk factors for GADOLINIUM NEPHROGENIC SYSTEMIC SCLEROSIS: Report Status: Verified Date Reported: SEP 06, 2024 Date Verified: SEP 06, 2024 Specialty Therapist E-Sig: Report: MRI brain without and with [...] Staff: ARCENIO LEYVA, Staff Radiologist Verified by data warehousing engineer for ARCENIO LEYVA /ARCENIO AVILA[facility] Sep 06, 2024 01:40 PM MRI C SPINE W & W/ O CONTRAST(FURTHER SEQUENCES): LUIS MANUEL PERDOMO [id number] -1945 M Exm Date: SEP 06, 2024@13:40 Req Phys: FRANCK TURNERISIAHFLOSav Pat Loc: 5-MED/TEL/09-07-2024@06:42 Img Loc: [facility] Service: [facility] [place] [id number] (Case [id number] COMPLETE) MRI C SPINE W & W/O CONTRAST(FURT(MRI Detailed) CPT:23800 Contrast Media : Gadolinium Reason for Study: SEE CLINICAL HISTORY Pharmaceutical: GADOTERIDOL 279.3MG/ML 20ML INJ, 19ml Clinical History: STATUS OF PLAIN FILMS:Not performed (Provide justification for MR W/O prior plain films below.) MRI for MS MRI Screening (Required): IMPLANTED DEVICE DOCUMENTATION IMPLANTED DEVICE DOCUMENTATION NOT FOUND Does the Marcella have any Cardiac Implants? None Does the have any implanted stimulators? None Does the have cochlear implants? No Does the Marcella have Cerebral aneurysm clip(s)? I don't know [...] 07, 2024 Date Verified: SEP 07, 2024 Specialty Therapist E-Sig: Report: EXAMINATION: MRI OF THE CERVICAL [...] Interpreting Staff: HUANG TAI, Radiologist Verified by data warehousing engineer for HUANG TAI /HUANG [facility] Sep 03, 2024 10:45 AM CHEST SINGLE(1) EW: LUIS MANUEL PERDOMO [id number] -1945 M Exm Date: SEP 03, 2024@10:45 Req Phys: FRANCK TURNER Pat Loc: 5-MED/TEL/09-03-2024@10:56 Img Loc: [facility] Service: [place] [address] (Case [id number] COMPLETE)CHEST SINGLE(1) VIEW (RAD Detailed) CPT:63657 Proc Modifiers : PORTABLE EXAM Reason for Study: Eval volume status Clinical History: Report Status: Verified Date Reported: SEP 03, 2024 Date Verified: SEP 03, 2024 Specialty Therapist E-Sig: Report: EXAMINATION: SINGLE VIEW CHEST CLINICAL [...] Interpreting Staff: HUANG TAI, Radiologist Verified by data warehousing engineer for HUANG TAI /HUANG WHE[facility] Aug 29, 2024 08:[address] HEAD W/O CONT: LUIS MANUEL PERDOMO [id number] -1945 M Exm Date: AUG 29, 2024@20:28 Req Phys: FELISA COLE Loc: ED/4P-12A (Req'g Loc) Img Loc: CT SCAN Service: [place] [address] (Case [id number] COMPLETE) CT HEAD W/O CONT (CT Detailed) CPT:45249 Reason for Study: SEE CLINICAL HISTORY Clinical History: REASON FOR SEND OUT: ATTENDING PHYSICIAN NAME: New transient neurological s/s - suspected TIA HISTORY/REASON FOR EXAM: confusion Report Status: Verified Date Reported: AUG 29, 2024 Date Verified: AUG 29, 2024 Specialty Therapist E-Sig: Report: HISTORY confusion COMPARISON No prior [...] Staff: ABDIRAHMAN CROW, Staff Physician Verified by data warehousing engineer for ABDIRAHMAN CROW /[facility] Pathology Reports: +/- 30 days of the [...] PORT: Reporting Lab: [facility] [CLIA# [id number]] [address] [place] [id number] Accession [UID]: [id number] [[id number]] Received: Sep 03, 2024@14:02 Collection sample: URINE, [...] Report Performed By: [facility] [CLIA# [id number]] [address] [place] [id number] [facility] Sep 02, 2024 06:00 PM LR MICROBIOLOGY RE PORT: Reporting Lab: [facility] [CLIA# [id number]] [address] [place], [place] [id number] Accession [UID]: [id number] [[id number]] Received: Sep 02, 2024@18:07 Collection sample: BLD CULTURE BOTTLES Collection date: Sep 02, 2024 18:00 Site/Specimen: BLOOD Provider: FRANCK TURNER Comment on specimen: L HAND Test(s) ordered: CULTURE, BLOOD................ completed: Sep 08, 2024 * BACTERIOLOGY FINAL REPORT => Sep 08, 2024 08:25 TECH CODE: [id number] Bacteriology Remark(s): Blood culture status=NO GROWTH (unless notified otherwise) 09/03/2024 AEROBIC: NO GROWTH ANAEROBIC: NO GROWTH =--=--=--=--=--=--=--=--=--=-- =--=--=--=--=--=--=--=--=--=-- =--=--=--=--=--=-- Performing Laboratory: Bacteriology Report Performed By: [facility] [CLIA# [id number]] [address] [place] [address] MAG[facility]RESE[facility] Aug 29, 2024 10:18 PM LR MICROBIOLOGY RE PORT: Reporting Lab: [facility] [CLIA# [id number]] [address] [place] [address] Accession [UID]: [id number] [[id number]] Received: Aug 29, 2024@22:18 Collection sample: URINE, CLEAN CATCH Collection date: Aug 29, 2024 22:18 Site/Specimen: URINE Provider: FELISA COLE Test(s) ordered: CULTURE, URINE................ completed: Aug 31, 2024 09:51 * BACTERIOLOGY FINAL REPORT => Aug 31, 2024 09:51 TECH CODE: [id number] Bacteriology Remark(s): NO GROWTH 08/30/2024 <10,000 CFU/ML. 08/31/2024 =--=--=--=--=--=--=--=--=--=-- =--=--=--=--=--=--=--=--=--=-- =--=--=--=--=--=-- Performing Laboratory: Bacteriology Report Performed By: [facility] [IA# [id number]] [address] [place] [address] [facility] CALABRESE[facility]
--- OUTSIDE RECORDS SUMMARY | 2024-09-04 18:20 | XMS_ITS ---
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 Role Phone YULISSA HENDERSON Primary Care [...] PLAN F Mar 24, 2014 PLAN F [id number] LUIS MANUEL PERDOMO PATIENT [facility] [place] [facility] PREFERRED PROVIDER ORGANIZAT ION (PPO) [facility] Sep 21, 2012 [id number] LUIS MANUEL PERDOMO PATIENT [employer] ([id number]) PRESCRIPT ION WL3A Sep 21, 2012 [id number] [phone] LUIS MANUEL PERDOMO PATIENT MEDICARE (WNR) MEDICARE (M) PART B Sep 21, 2012 PART B [id number] NOEMI PERDOMO PATIENT MEDICARE (WNR) MEDICARE (M) PART A Jan 22, 2011 PART A [id number] LEANNE, NOEMI PATIENT MEDICARE PART D (WNR) MEDICARE (M) PART D Mar 24, 2014 PART D [id number] LUIS MANUEL PERDOMO PATIENT Selected Encounter This section includes the information on record at MD for the Encounter. Date/Time Encounter Type Encounter Description Reason Pro vider Source Sep 04, 2024 10:20 PM Inpatient Visit DAILY HOSPITALIZATION DATA IHE Encounter Template Text not used by MD Plan of Treatment: Future Appointments (+ 6 months) and Future Tests (+/- 45 days) The Plan of Treatment section includes future care activities for the patient from [facility]. This section includes future appointments and future orders which are active, pending or scheduled. Future Appointments This section includes appointments that were scheduled to occur 6 months from the date of the Encounter, up to a maximum of 20 appointments. The data comes from all MD treatment facilities. Appointment Date/Time Appointment Type Appointme nt Facility Name Sep 13, 2024 08:00 AM AMBULATORY - NONE [facility] Sep 30, 2024 01:30 PM [...] of theEncounter. The data comes from all [facility] [place] facilities. Test Date/Time Test Type Test Details Facility Name Sep 13, 2024 01:[address] [facility] Cons Vice President Talent Management's Choice [facility] Lab Results: +/- 30 days of the encounter This section includes the Chemistry and Hematology Lab Results on record with MD for the patient. Radiology Reports and Pathology Reports are provided separately, in subsequent sections. Lab Results This section contains the Chemistry/Hematology Results that were resulted 30 days before or 30 daysafter the date of the Encounter. Date/Time Source Result Type Result - Unit Interpretation Reference Range Specimen Type Comment Sep 09, 2024 12:16 PM [facility] GLUCOSE-HAND MONITOR CAPILLARY Specimen Type: CAPILLARY Comment: Test performed by: [id number] Meter #: [id number] Ordering Provider: FRANCK TURNER Report Released Date/Time: Sep 09, 2024 12:33 PM Reporting Lab: [address] [address] Performing Lab: [address] [address] GLUCOSE-HAND MONITOR 116 mg/dL H Sep 09, 2024 06:07 AM [facility] GLUCOSE-HAND MONITOR CAPILLARY Specime n Type: CAPILLARY Comment: Test performed by: [id number] Meter #: [id number] Ordering Provider: FRANCK TURNER Report Released Date/Time: Sep 09, 2024 08:17 AM Reporting Lab: [address] [address] Performing Lab: [address] [address] GLUCOSE-HAND MONITOR 112 mg/dL H Sep 08, 2024 09:13 PM [facility] GLUCOSE-HAND MONITOR CAPILLARY Specime n Type: CAPILLARY Comment: Test performed by: [id number] Meter #: [id number] Ordering Provider: FRANCK TURNER Report Released Date/Time: Sep 08, 2024 09:31 PM Reporting Lab: [address] [address] Performing Lab: [address] [address] GLUCOSE-HAND MONITOR 107 mg/dL H Sep 08, 2024 03:49 PM [facility] GLUCOSE-HAND MONITOR CAPILLARY Specime n Type: CAPILLARY Comment: AAMIR RN notified Test performed by: [id number] Meter #: [id number] Ordering Provider: FRANCK TURNER Report Released Date/Time: Sep 08, 2024 04:33 PM Reporting Lab: [address] [address] Performing Lab: [address] [address] GLUCOSE-HAND MONITOR 162 mg/dL H Sep 08, 2024 11:43 AM [facility] GLUCOSE-HAND MONITOR CAPILLARY Specime n Type: CAPILLARY Comment: AAMIR RN notified Test performed by: [id number] Meter #: [id number] Ordering Provider: FRANCK TURNER Report Released Date/Time: Sep 08, 2024 12:03 PM Reporting Lab: [address] [address] Performing Lab: [address] [address] GLUCOSE-HAND MONITOR 133 mg/dL H Sep 08, 2024 06:13 AM [facility] GLUCOSE-HAND MONITOR CAPILLARY Specime n Type: CAPILLARY Comment: Test performed by: [id number] Meter #: [id number] Ordering Provider: FRANCK TURNER Report Released Date/Time: Sep 08, 2024 06:46 AM Reporting Lab: [address] [address] Performing Lab: [address] [address] GLUCOSE-HAND MONITOR 104 mg/dL H Sep 07, 2024 07:59 PM [facility] GLUCOSE-HAND MONITOR CAPILLARY Specime n Type: CAPILLARY Comment: Test performed by: [id number] Meter #: [id number] Ordering Provider: FRANCK TURNER Report Released Date/Time: Sep 07, 2024 09:05 PM Reporting Lab: [address] [address] Performing Lab: [address] [address] GLUCOSE-HAND MONITOR 107 mg/dL H Sep 07, 2024 04:39 PM [facility] GLUCOSE-HAND MONITOR CAPILLARY Specime n Type: CAPILLARY Comment: Test performed by: [id number] Meter #: [id number] Ordering Provider: FRANCK TURNER Report Released Date/Time: Sep 07, 2024 05:09 PM Reporting Lab: [address] [address] Performing Lab: [address] [address] GLUCOSE-HAND MONITOR 105 mg/dL H Sep 07, 2024 11:41 AM [facility] GLUCOSE-HAND MONITOR CAPILLARY Specime n Type: CAPILLARY Comment: Test performed by: [id number] Meter #: [id number] Ordering Provider: FRANCK TURNER Report Released Date/Time: Sep 07, 2024 12:41 PM Reporting Lab: [address] [address] Performing Lab: [address] [address] GLUCOSE-HAND MONITOR 144 mg/dL H Sep 07, 2024 05:56 AM [facility] GLUCOSE-HAND MONITOR CAPILLARY Specime n Type: CAPILLARY Comment: Test performed by: [id number] Meter #: [id number] Ordering Provider: FRANCK TURNER Report Released Date/Time: Sep 07, 2024 06:31 AM Reporting Lab: [address] [address] Performing Lab: [address] [address] GLUCOSE-HAND MONITOR 96 mg/dL Sep 06, 2024 08:10 PM [facility] GLUCOSE-HAND MONITOR CAPILLARY Specime n Type: CAPILLARY Comment: Test performed by: [id number] Meter #: [id number] Ordering Provider: FRANCK TURNER Report Released Date/Time: Sep 06, 2024 08:52 PM Reporting Lab: [address] [address] Performing Lab: [address] [address] GLUCOSE-HAND MONITOR 124 mg/dL H Sep 06, 2024 04:27 PM [facility] GLUCOSE-HAND MONITOR CAPILLARY Specime n Type: CAPILLARY Comment: Test performed by: [id number] Meter #: [id number] Ordering Provider: FRANCK TURNER Report Released Date/Time: Sep 06, 2024 05:15 PM Reporting Lab: [address] [address] Performing Lab: [address] [address] GLUCOSE-HAND MONITOR 107 mg/dL H Sep 06, 2024 12:12 PM [facility] GLUCOSE-HAND MONITOR CAPILLARY Specime n Type: CAPILLARY Comment: Test performed by: [id number] Meter #: [id number] Ordering Provider: FRANCK TURNER Report Released Date/Time: Sep 06, 2024 12:29 PM Reporting Lab: [address] [address] Performing Lab: [address] [address] GLUCOSE-HAND MONITOR 181 mg/dL H -Sep 06, 2024 06:13 AM [facility] GLUCOSE-HAND MONITOR CAPILLARY Specime n Type: CAPILLARY Comment: Test performed by: [id number] Meter #: [id number] Ordering Provider: FRANCK TURNER Report Released Date/Time: Sep 06, 2024 06:36 AM Reporting Lab: [address] [address] Performing Lab: [address] [address] GLUCOSE-HAND MONITOR 102 mg/dL H Sep 05, 2024 08:47 PM [facility] GLUCOSE-HAND MONITOR CAPILLARY Specime n Type: CAPILLARY Comment: Test performed by: [id number] Meter #: [id number] Ordering Provider: FRANCK TURNER Report Released Date/Time: Sep 06, 2024 02:13 AM Reporting Lab: [address] [address] Performing Lab: [address] [address] GLUCOSE-HAND MONITOR 103 mg/dL H Sep 05, 2024 04:40 PM [facility] GLUCOSE-HAND MONITOR CAPILLARY Specime n Type: CAPILLARY Comment: AAMIR RN notified Test performed by: [id number] Meter #: [id number] Ordering Provider: FRANCK TURNER Report Released Date/Time: Sep 05, 2024 05:11 PM Reporting Lab: [address] [address] Performing Lab: [address] [address] GLUCOSE-HAND MONITOR 113 mg/dL H Sep 05, 2024 12:06 PM [facility] GLUCOSE-HAND MONITOR CAPILLARY Specime n Type: CAPILLARY Comment: Test performed by: [id number] Meter #: [id number] Ordering Provider: FRANCK TURNER Report Released Date/Time: Sep 05, 2024 12:23 PM Reporting Lab: [address] [address] Performing Lab: [address] [address] GLUCOSE-HAND MONITOR 115 mg/dL H Sep 05, 2024 06:26 AM [facility] GLUCOSE-HAND MONITOR CAPILLARY Specime n Type: CAPILLARY Comment: AAMIR Correction Dose Test performed by: [id number] Meter #: [id number] Ordering Provider: FRANCK TURNER Report Released Date/Time: Sep 05, 2024 06:43 AM Reporting Lab: [address] [address] Performing Lab: [address] [address] GLUCOSE-HAND MONITOR 111 mg/dL H Sep 04, 2024 08:59 PM [facility] GLUCOSE-HAND MONITOR CAPILLARY Specime n Type: CAPILLARY Comment: AAMIR RN notified Test performed by: [id number] Meter #: [id number] Ordering Provider: FRANCK TURNER Report Released Date/Time: Sep 04, 2024 09:36 PM Reporting Lab: [address] [address] Performing Lab: [address] [address] GLUCOSE-HAND MONITOR 123 mg/dL H Sep 04, 2024 04:41 PM [facility] GLUCOSE-HAND MONITOR CAPILLARY Specime n Type: CAPILLARY Comment: AAMIR RN notified Test performed by: [id number] Meter #: [id number] Ordering Provider: FRANCK TURNER Report Released Date/Time: Sep 04, 2024 05:03 PM Reporting Lab: [address] [address] Performing Lab: [address] [address] GLUCOSE-HAND MONITOR 118 mg/dL H Sep 04, 2024 12:36 PM [facility] GLUCOSE-HAND MONITOR CAPILLARY Specime n Type: CAPILLARY Comment: AAMIR RN notified Test performed by: [id number] Meter #: [id number] Ordering Provider: FRANCK TURNER Report Released Date/Time: Sep 04, 2024 12:53 PM Reporting Lab: [address] [address] Performing Lab: [place] [address] GLUCOSE-HAND MONITOR 129 mg/dL H 71-99 Sep 04, 2024 12:03 PM [facility] RESPIRATORY VIRUS PANEL (BIOFIRE) NASOPHARYN X Specimen Type: NASOPHARYNX Comment: ~For Test: RESPIRATORY VIRUS PANEL (BIOFIRE) ~ORDER READ BACK TO: FRANCK TURNER 09/04/24@11:30 Ordering Provider: FRANCK TURNER Report Released Date/Time: Sep 04, 2024 11:33 AM Reporting Lab: [place] [phone] Performing Lab: [place] [phone] ADENOVIRUS (BIOFIRE) Not Detected -Not D etected [...] -Not Detected Sep 04, 2024 06:55 AM [facility] MAGNESIUM PLASMA Specimen Type: PLASM A [...] 03, 2024 11:10 AM Reporting Lab: [place] [facility] [address] [facility] [address] Performing Lab: [place] [id number] [facility] [address] MAGNESIUM 1.8 mg/dL 1.6-2.6 Sep 04, 2024 06:55 AM [facility] PANEL 1 PLASMA Specimen Type: PLASM [...] Sep 03, 2024 11:10 AM Reporting Lab: [address] [address] Performing Lab: [address] CREATININE 0.75 mg/dL 0.72-1.25 UREA NITROGEN 13 mg/dL 9-25 GLUCOSE 105 mg/dL H 74-100 SODIUM 128 mmol/L L 136-145 POTASSIUM 3.9 mmol/L 3.5-5.1 CHLORIDE 99 mmol/L 98-107 CO2 21 mmol/L L 22-29 CALCIUM 8.0 mg/dL L 8.4-10.2 ANION GAP 8 meq/L 3-19 eGFR (CKD-EPI) >90 Sep 04, 2024 06:02 AM [facility] GLUCOSE-HAND MONITOR CAPILLARY Specime n Type: CAPILLARY Comment: Test performed by: [id number] Meter #: [id number] Ordering Provider: FRANCK TURNER Report Released Date/Time: Sep 04, 2024 06:28 AM Reporting Lab: [address] Performing Lab: [address] GLUCOSE-HAND MONITOR 114 mg/dL H 71-99 Sep 03, 2024 05:19 PM [facility] GLUCOSE-HAND MONITOR CAPILLARY Specime n Type: CAPILLARY Comment: Test performed by: [id number] Meter #: [id number] Ordering Provider: FRANCK TURNER Report Released Date/Time: Sep 03, 2024 05:37 PM Reporting Lab: [address] Performing Lab: [address] [address] GLUCOSE-HAND MONITOR 124 mg/dL H 71-99 Sep 03, 2024 04:41 PM [facility] GLUCOSE-HAND MONITOR CAPILLARY Specime n Type: CAPILLARY Comment: Test performed by: [id number] Meter #: [id number] Ordering Provider: FRANCK TURNER Report Released Date/Time: Sep 03, 2024 06:09 PM Reporting Lab: [address] [address] Performing Lab: [address] [address] GLUCOSE-HAND MONITOR 112 mg/dL H 71-99 Sep 03, 2024 01:35 PM [facility] URINE LYTES URINE Specimen Type : URINE Comment: ~Altered mental status with no identifiable cause Ordering Provider: FRANCK TURNER Report Released Date/Time: Sep 02, 2024 04:44 PM Reporting Lab: [address] [address] Performing Lab: [address] [address] SODIUM 130 mmol/L POTASSIUM 47.6 mmol/L CHLORIDE 137 mmol/L Sep 03, 2024 01:35 PM [facility] CREATININE URINE Specimen Type: URINE Comment: ~Altered mental status with no identifiable cause Ordering Provider: FRANCK TRUNER Report Released Date/Time: Sep 02, 2024 04:44 PM Reporting Lab: [address] [address] Performing Lab: [address] [address] CREATININE 150.9 mg/dL Sep 03, 2024 01:35 PM [facility] UREA NITROGEN URINE Specimen Type : URINE Comment: ~Altered mental status with no identifiable cause Ordering Provider: FRANCK TURNER Report Released Date/Time: Sep 02, 2024 04:44 PM Reporting Lab: [address] [address] Performing Lab: [address] [address] UREA NITROGEN 320 mg/dL Sep 03, 2024 01:35 PM [facility] OSMOLALITY URINE Specimen Type: URINE Comment: ~Altered mental status with no identifiable cause Ordering Provider: FRANCK TURNER Report Released Date/Time: Sep 02, 2024 04:44 PM Reporting Lab: [address] [address] Performing Lab: [address] [address] OSMOLALITY 522 mosm/kg 38-1400 Sep 03, 2024 01:35 PM [facility] URINALYSIS WITH REFLEX TO CULTURE URINE Specimen Type: URINE Comment: ~Altered mental status with no identifiable cause Ordering Provider: FRANCK TURNER Report Released Date/Time: Sep 02, 2024 04:44 PM Reporting Lab: [address] [address] Performing Lab: [address] [address] URINE COLOR Yellow Colorless-Yellow APPEARANCE CLOUDY H [...] H 0-28 Sep 03, 2024 11:58 AM [facility] GLUCOSE-HAND MONITOR CAPILLARY Specime n Type: CAPILLARY Comment: AAMIR RN notified Test performed by: [id number] Meter #: [id number] Ordering Provider: FRANCK TURNER Report Released Date/Time: Sep 03, 2024 12:15 PM Reporting Lab: [address] [address] Performing Lab: [address] [address] GLUCOSE-HAND MONITOR 135 mg/dL H Sep 03, 2024 07:09 AM [facility] GLUCOSE-HAND MONITOR CAPILLARY Specime n Type: CAPILLARY Comment: Test performed by: [id number] Meter #: [id number] Ordering Provider: FRANCK TURNER Report Released Date/Time: Sep 03, 2024 07:26 AM Reporting Lab: [address] [address] Performing Lab: [address] [address] GLUCOSE-HAND MONITOR 120 mg/dL H -Sep 03, 2024 07:05 AM [facility] CBC/PLT BLOOD Specimen Type: BLOOD No comment entered. Ordering Provider: FRANCK TURNER Report Released Date/Time: Sep 02, 2024 04:29 PM Reporting Lab: [address] [address] Performing Lab: [address] [address] WBC 6.9 10*3/uL 5.0-10.0 RBC 3.48 10*6/uL L 4.6-6.2 HGB 9.5 g/dL L 14.0-18.0 HCT 29.1 L 42.0-52.0 MCV 83.6 fL 80.0-94.0 MCH 27.3 pg 27.0-31.0 MCHC 32.6 g/dL 32.0-36.0 PLT 258 10*3/uL 150-450 MPV 10.3 fL 9.0-13.1 RDW 14.8 11.0-16.0 NRBC 0.0 0.0-0.0 Sep 03, 2024 07:05 AM [facility] MAGNESIUM PLASMA Specimen Type: PLASM A [...] 02, 2024 04:29 PM Reporting Lab: [address] [address] Performing Lab: [address] [address] MAGNESIUM 1.7 mg/dL 1.6-2.6 Sep 03, 2024 07:05 AM [facility] PANEL 1 PLASMA Specimen Type: PLASM [...] 02, 2024 04:29 PM Reporting Lab: [address] [address] Performing Lab: [address] [address] CREATININE 0.82 mg/dL 0.72-1.25 UREA NITROGEN 12 mg/dL 9-25 GLUCOSE 109 mg/dL H 74-100 SODIUM 129 mmol/L L 136-145 POTASSIUM 4.2 mmol/L 3.5-5.1 CHLORIDE 99 mmol/L 98-107 CO2 21 mmol/L L 22-29 CALCIUM 8.1 mg/dL L 8.4-10.2 ANION GAP 9 meq/L 3-19 eGFR (CKD-EPI) 90 Sep 03, 2024 07:05 AM [facility] GLYCOHEMOGLOBIN BLOOD Specimen Type: BLOOD Comment: Prediabetes: 5.7%-6.4% Diabetes: >= 6.5% [facility] guidelines for A1c interpretation: Glycemic control [...] 8.73 and 9.27. Ref: https://ngsp.org/CAPdata.asp. The in-house V[employer]-[email or web address].cn D-100 analyzer has a historical CV <= 2%. Contact the laboratory for further performance characteristics of this assay. Ordering Provider: FRANCK TURNER Report Released Date/Time: Sep 02, 2024 04:29 PM Reporting Lab: [address] [address] Performing Lab: [place] [phone] GLYCOHEMOGLOBIN 5.6 4.4-5.6 Sep 03, 2024 07:05 AM [facility] OSMOLALITY SERUM Specimen Type: SERUM No comment entered. Ordering Provider: FRANCK TURNER Report Released Date/Time: Sep 02, 2024 04:44 PM Reporting Lab: [address] [address] Performing Lab: [address] [address] OSMOLALITY 271 mosm/kg L 280-300 Sep 02, 2024 08:15 PM [facility] GLUCOSE-HAND MONITOR CAPILLARY Specime n Type: CAPILLARY Comment: AAMIR DEXTER notified Test performed by: [id number] Meter #: [id number] Ordering Provider: FRANCK TURNER Report Released Date/Time: Sep 02, 2024 08:57 PM Reporting Lab: [address] [address] Performing Lab: [address] [address] GLUCOSE-HAND MONITOR 126 mg/dL H 71-99 Sep 02, 2024 06:10 PM [facility] MRSA SURVL NARES DNA NARES Specime [...] 02, 2024 05:12 PM Reporting Lab: [address] [address] Performing Lab: [address] [address] MRSA SURVL NARES DNA Negative Negative Sep 02, 2024 05:36 PM [facility] GLUCOSE-HAND MONITOR CAPILLARY Specime n Type: CAPILLARY Comment: Test performed by: [id number] Meter #: [id number] Ordering Provider: FRANCK TURNER Report Released Date/Time: Sep 02, 2024 05:53 PM Reporting Lab: [address] [address] Performing Lab: [address] [address] GLUCOSE-HAND MONITOR 127 mg/dL H 71-99 Aug 29, 2024 10:04 PM [facility] URINALYSIS WITH REFLEX TO CULTURE URINE Specimen Type: URINE Comment: ~For Test: URINALYSIS WITH REFLEX TO CULTURE ~REORDER Ordering Provider: FELISA COLE Report Released Date/Time: Aug 29, 2024 09:36 PM Reporting Lab: [address] [address] Performing Lab: [address] [address] URINE COLOR Yellow Colorless-Yellow APPEARANCE Clear Clear [...] /[LPF] 0-28 Aug 29, 2024 08:32 PM [facility]IGH SENSITIVITY TROPONIN I PLASMA [...] 29, 2024 07:55 PM Reporting Lab: [address] [address] Performing Lab: [address] [address] HIGH SENSITIVITY TROPONIN I 7 4-35 Aug 29, 2024 08:32 PM [facility] CBC/PLT BLOOD Specimen Type: BLOOD No comment entered. Ordering Provider: FELISA COLE Report Released Date/Time: Aug 29, 2024 07:55 PM Reporting Lab: [address] [address] Performing Lab: [address] [address] WBC 11.2 10*3/uL H 5.0-10.0 RBC 3.97 10*6/uL L 4.6-6.2 HGB 10.9 g/dL L 14.0-18.0 HCT 33.5 L 42.0-52.0 MCV 84.4 fL 80.0-94.0 MCH 27.5 pg 27.0-31.0 MCHC 32.5 g/dL 32.0-36.0 PLT 230 10*3/uL 150-450 MPV 10.2 fL 9.0-13.1 RDW 14.6 11.0-16.0 NRBC 0.0 0.0-0.0 Aug 29, 2024 08:32 PM [facility] PANEL 5 PLASMA Specimen Type: [...] 29, 2024 07:55 PM Reporting Lab: [address] [address] Performing Lab: [address] [address] CREATININE 0.85 mg/dL 0.72-1.25 UREA NITROGEN 15 [...] 10:21 PM 0 [place] [facility] Sep 04, 2024 08:38 PM 99.2 F 86 /min 127/68 mm[Hg] 18 /min 93 % 0 [place] [facility] Sep 04, 2024 07:06 PM 1 [place] [facility] Sep 04, 2024 06:44 PM 2 [place] [facility] Sep 04, 2024 06:39 PM 99.9 F 76 /min 154/68 mm[Hg] 90 % [place] [facility] Advance Directives: All historical and current Section Date Range: From patient's date of to the date document was created. This section includes ALL of a patient's completed or amended MD Advance and Rescinded Directives. The entries below indicate that a directive exists for the patient, but an actual copy is not included with this document. The data comes from all MD facilities. Date Advance Directives Provider Source Mar 08, 2024 ADVANCE DIRECTIVE DISCUSSION [facility] Radiology Reports: +/- [...] the Encounter. The data comes from all MD treatment facilities. Date/Time Radiology Report Provider Source Sep 06, 2024 01:40 PM MRI BRAIN W & W/O: LUIS MANUEL PERDOMO FABIAN [id number] -1945 M Exm Date: SEP 06, 2024@13:40 Req Phys: FRANCK TURNER Loc: 5-MED/TEL/09-06-2024@19:09 Img Loc: [facility] Service: [place] [address] (Case [id number] COMPLETE) MRI BRAIN W & W/O (MRI Detailed) CPT:24656 Contrast Media : Gadolinium Reason for Study: SEE CLINICAL HISTORY Pharmaceutical: GADOTERIDOL 279.3MG/ML 20ML INJ, 19ml Clinical History: MRI Screening (Required): IMPLANTED DEVICE DOCUMENTATION IMPLANTED DEVICE DOCUMENTATION NOT FOUND Does the have any Cardiac Implants? None Does the [place] have any implanted stimulators? None Does the [place] have cochlear implants? No Does the [place] have Cerebral aneurysm clip(s)? I don't know Does the [place] have any shrapnel? I don't know If yes, where in your body? Please list other implants not listed above: MRI table has a weight limit of 551 lbs. Kenton's Weight: *212 lb [96.16 kg] (09/04/2024 05:19) Is this patient claustrophobic?: No REASON FOR EXAM:MULTIPLE SCLEROSIS (indicate suspected or established) PERTINENT PATIENT HISTORY: MS c/f for flare Risk factors for GADOLINIUM NEPHROGENIC SYSTEMIC SCLEROSIS: Report Status: Verified Date Reported: SEP 06, 2024 Date Verified: SEP 06, 2024 Hospitalist Physician E-Sig: Report: MRI brain without and with [...] Staff: ARCENIO LEYVA, Staff Radiologist Verified by teacher of the deaf for ARCENIO LEYVA /ARCENIO AVILA-CDD [facility] Sep 06, 2024 01:40 PM MRI C SPINE W & W/ O CONTRAST(FURTHER SEQUENCES): LUIS MANUEL PERDOMO [id number] M Exm Date: SEP 06, 2024@13:40 Req Phys: FRANCK TURNERISIAHFLOSav Pat Loc: 5-MED/TEL/09-07-2024@06:42 Img Loc: [facility] Service: [facility] [place] [id number] (Case [id number] COMPLETE) MRI C SPINE W & W/O CONTRAST(FURT(MRI Detailed) CPT:42021 Contrast Media : Gadolinium Reason for Study: SEE CLINICAL HISTORY Pharmaceutical: GADOTERIDOL 279.3MG/ML 20ML INJ, 19ml Clinical History: STATUS OF PLAIN FILMS:Not performed (Provide justification for MR W/O prior plain films below.) MRI for MS MRI Screening (Required): IMPLANTED DEVICE DOCUMENTATION IMPLANTED DEVICE DOCUMENTATION NOT FOUND Does the Kenton have any Cardiac Implants? None Does the have any implanted stimulators? None Does the have cochlear implants? No Does the Kenton have Cerebral aneurysm clip(s)? I don't know [...] 07, 2024 Date Verified: SEP 07, 2024 Hospitalist Physician E-Sig: Report: EXAMINATION: MRI OF THE CERVICAL [...] Interpreting Staff: HUANG TAI, Radiologist Verified by teacher of the deaf for HUANG TAI /HUANG WHEATLEY-Sav [facility] Sep 03, 2024 10:45 AM CHEST SINGLE(1) EW: LUIS MANUEL PERDOMO [id number] -1945 M Exm Date: SEP 03, 2024@10:45 Req Phys: FRANCK TURNER Pat Loc: 5-MED/TEL/09-03-2024@10:56 Img Loc: CDD RADIOLOGY Service: [place] [address] (Case [id number] COMPLETE)CHEST SINGLE(1) VIEW (RAD Detailed) CPT:03974 Proc Modifiers : PORTABLE EXAM Reason for Study: Eval volume status Clinical History: Report Status: Verified Date Reported: SEP 03, 2024 Date Verified: SEP 03, 2024 Hospitalist Physician E-Sig: Report: EXAMINATION: SINGLE VIEW CHEST CLINICAL [...] Interpreting Staff: HUANG TAI, Radiologist Verified by teacher of the deaf for HUANG TAI /HUANG WHEATLEY-MALKA [facility] Aug 29, 2024 08:[address] HEAD W/O CONT: LUIS MANUEL PERDOMO [id number] -1945 M Exm Date: AUG 29, 2024@20:28 Req Phys: FELISA COLE Loc: ED/4P-12A (Req'g Loc) Img Loc: CT SCAN Service: [place] [address] (Case [id number] COMPLETE) CT HEAD W/O CONT (CT Detailed) CPT:92094 Reason for Study: SEE CLINICAL HISTORY Clinical History: REASON FOR SEND OUT: ATTENDING PHYSICIAN NAME: New transient neurological s/s - suspected TIA HISTORY/REASON FOR EXAM: confusion Report Status: Verified Date Reported: AUG 29, 2024 Date Verified: AUG 29, 2024 Hospitalist Physician E-Sig: Report: HISTORY confusion COMPARISON No prior [...] Staff: ABDIRAHMAN CROW, Staff Physician Verified by teacher of the deaf for ABDIRAHMAN CROW /[facility]DIRAHMAN [facility] Pathology Reports: +/- 30 days [...] the Encounter. The data comes from all MD treatment facilities. Date/Time Pathology Report Provider Source Sep 03, 2024 01:35 PM LR MICROBIOLOGY RE PORT: Reporting Lab: [facility] [CLIA# [id number]] [address] [place] [id number] Accession [UID]: [id number] [[id number]] Received: Sep 03, 2024@14:02 Collection sample: URINE, [...] [facility] [CLIA# [id number]] [address] [place] [id number] [facility] Sep 02, 2024 06:00 PM LR MICROBIOLOGY RE PORT: Reporting Lab: [facility] [CLIA# [id number]] [address] [place], [place] [id number] Accession [UID]: [id number] [[id number]] Received: Sep 02, 2024@18:07 Collection sample: BLD CULTURE BOTTLES Collection date: Sep 02, 2024 18:00 Site/Specimen: BLOOD Provider: FRANCK TURNER Comment on specimen: L HAND Test(s) ordered: CULTURE, BLOOD................ completed: Sep 08, 2024 * BACTERIOLOGY FINAL REPORT => Sep 08, 2024 08:25 TECH CODE: [id number] Bacteriology Remark(s): Blood culture status=NO GROWTH (unless notified otherwise) 09/03/2024 AEROBIC: NO GROWTH ANAEROBIC: NO GROWTH =--=--=--=--=--=--=--=--=--=-- =--=--=--=--=--=--=--=--=--=-- =--=--=--=--=--=-- Performing Laboratory: Bacteriology Report Performed By: [facility] [CLIA# [id number]] [address] [place] [address] MAGDY [facility]-Sav [facility] Aug 29, 2024 10:18 PM LR MICROBIOLOGY RE PORT: Reporting Lab: [facility] [CLIA# [id number]] [address] [place] [address] Accession [UID]: [id number] [[id number]] Received: Aug 29, 2024@22:18 Collection sample: URINE, CLEAN CATCH Collection date: Aug 29, 2024 22:18 Site/Specimen: URINE Provider: FELISA COLE Test(s) ordered: CULTURE, URINE................ completed: Aug 31, 2024 09:51 * BACTERIOLOGY FINAL REPORT => Aug 31, 2024 09:51 TECH CODE: [id number] Bacteriology Remark(s): NO GROWTH 08/30/2024 <10,000 CFU/ML. 08/31/2024 =--=--=--=--=--=--=--=--=--=-- =--=--=--=--=--=--=--=--=--=-- =--=--=--=--=--=-- Performing Laboratory: Bacteriology Report Performed By: [facility] [IA# [id number]] [address] [place] [address] [facility]-Sav [facility]
--- OUTSIDE RECORDS SUMMARY | 2024-09-04 20:00 | XMS_ITS | Encounter Summary ---
Author Name Department of Vetera Affairs (MD) [facility] Address [address] [place] [address] Care Team Providers Care Tube Depatcher Name Role Phone YULISSA HENDERSON Primary Care [...] PLAN F Mar 24, 2014 PLAN F [id number] [phone] LUIS MANUEL PERDOMO PATIENT [facility] [place] [facility] PREFERRED PROVIDER ORGANIZAT ION (PPO) [facility] SLE Sep 21, 2012 [id number] LUIS MANUEL PERDOMO PATIENT [employer] ([id number]) PRESCRIPT ION WL3A Sep 21, 2012 [id number] LUIS MANUEL PERDOMO PATIENT MEDICARE (WNR) MEDICARE (M) PART B Sep 21, 2012 PART B [id number] NOEMI PERDOMO PATIENT MEDICARE (WNR) MEDICARE (M) PART A Jan 22, 2011 PART A [id number] NOEMI PERDOMO PATIENT MEDICARE PART D (WNR) MEDICARE (M) PART D Mar 24, 2014 PART D [id number] LUIS MANUEL PERDOMO PATIENT Selected Encounter This section includes the information on record at MD for the Encounter. Date/Time Encounter Type Encounter Description Reason Pro vider Source Sep 05, 2024 12:00 AM Inpatient Visit EVENT (HISTORICAL) IHE Encounter Template Text not used by MD Plan of Treatment: Future Appointments (+ 6 months) and Future Tests (+/- 45 days) The Plan of Treatment section includes future care activities for the patient from all MD treatmentfacilities. This section includes future appointments and [...] 08:00 AM AMB[facility]ATORY - NONE [place] [facility] Sep 30, 2024 01:30 PM AMBULATORY - SURGERY [place] [facility] Active, Pending, and Scheduled Orders This section includes a listing of several types of active, pending, and scheduled orders, including clinic medications orders, diagnostic test orders, procedure orders and consult orders; where the start date of the order is 45 days before the date of the Encounter or 45 days after the date of theEncounter. The data comes from all [facility] facilities. Test Date/Time Test Type Test Details Facility Name Sep 13, 2024 01:33 PM Consult Order [facility] Cons Manufacturing Design Engineer's Choice [facility] Lab Results: +/- 30 [...] Specimen Type: CAPILLARY Comment: Test performed by: [id number] Meter #: [id number] Ordering Provider: FRANCK TURNER Report Released Date/Time: Sep 09, 2024 12:33 PM Reporting Lab: [address] [address] Performing Lab: [address] [address] GLUCOSE-HAND MONITOR 116 mg/dL H Sep 09, 2024 06:07 AM [facility] GLUCOSE-HAND MONITOR CAPILLARY Specime n Type: CAPILLARY Comment: Test performed by: [id number] Meter #: [id number] Ordering Provider: FRANCK TURNER Report Released Date/Time: Sep 09, 2024 08:17 AM Reporting Lab: [address] [address] Performing Lab: [address] [address] GLUCOSE-HAND MONITOR 112 mg/dL H Sep 08, 2024 09:13 PM [facility] GLUCOSE-HAND MONITOR CAPILLARY Specime n Type: CAPILLARY Comment: Test performed by: [id number] Meter #: [id number] Ordering Provider: FRANCK TURNER Report Released Date/Time: Sep 08, 2024 09:31 PM Reporting Lab: [address] [address] Performing Lab: [address] [address] GLUCOSE-HAND MONITOR 107 mg/dL H Sep 08, 2024 03:49 PM [facility] GLUCOSE-HAND MONITOR CAPILLARY Specime n Type: CAPILLARY Comment: AAMIR RN notified Test performed by: [id number] Meter #: [id number] Ordering Provider: FRANCK TURNER Report Released Date/Time: Sep 08, 2024 04:33 PM Reporting Lab: [address] [address] Performing Lab: [address] [address] GLUCOSE-HAND MONITOR 162 mg/dL H Sep 08, 2024 11:43 AM [facility] GLUCOSE-HAND MONITOR CAPILLARY Specime n Type: CAPILLARY Comment: AAMIR RN notified Test performed by: [id number] Meter #: [id number] Ordering Provider: FRANCK TURNER Report Released Date/Time: Sep 08, 2024 12:03 PM Reporting Lab: [address] [address] Performing Lab: [address] [address] GLUCOSE-HAND MONITOR 133 mg/dL H Sep 08, 2024 06:13 AM [facility] GLUCOSE-HAND MONITOR CAPILLARY Specime n Type: CAPILLARY Comment: Test performed by: [id number] Meter #: [id number] Ordering Provider: FRANCK TURNER Report Released Date/Time: Sep 08, 2024 06:46 AM Reporting Lab: [address] [address] Performing Lab: [address] [address] GLUCOSE-HAND MONITOR 104 mg/dL H Sep 07, 2024 07:59 PM [facility] GLUCOSE-HAND MONITOR CAPILLARY Specime n Type: CAPILLARY Comment: Test performed by: [id number] Meter #: [id number] Ordering Provider: FRANCK TURNER Report Released Date/Time: Sep 07, 2024 09:05 PM Reporting Lab: [address] [address] Performing Lab: [address] [address] GLUCOSE-HAND MONITOR 107 mg/dL H Sep 07, 2024 04:39 PM [facility] GLUCOSE-HAND MONITOR CAPILLARY Specime n Type: CAPILLARY Comment: Test performed by: [id number] Meter #: [id number] Ordering Provider: FRANCK TURNER Report Released Date/Time: Sep 07, 2024 05:09 PM Reporting Lab: [address] [address] Performing Lab: [address] [address] GLUCOSE-HAND MONITOR 105 mg/dL H Sep 07, 2024 11:41 AM [facility] GLUCOSE-HAND MONITOR CAPILLARY Specime n Type: CAPILLARY Comment: Test performed by: [id number] Meter #: [id number] Ordering Provider: FRANCK TURNER Report Released Date/Time: Sep 07, 2024 12:41 PM Reporting Lab: [address] [address] Performing Lab: [address] [address] GLUCOSE-HAND MONITOR 144 mg/dL H -Sep 07, 2024 05:56 AM [facility] GLUCOSE-HAND MONITOR CAPILLARY Specime n Type: CAPILLARY Comment: Test performed by: [id number] Meter #: [id number] Ordering Provider: FRANCK TURNER Report Released Date/Time: Sep 07, 2024 06:31 AM Reporting Lab: [place] [phone] Performing Lab: [place] [phone] GLUCOSE-HAND MONITOR 96 mg/dL Sep 06, 2024 08:10 PM [facility] GLUCOSE-HAND MONITOR CAPILLARY Specime n Type: CAPILLARY Comment: Test performed by: [id number] Meter #: [id number] Ordering Provider: FRANCK TURNER Report Released Date/Time: Sep 06, 2024 08:52 PM Reporting Lab: [address] [address] Performing Lab: [address] [address] GLUCOSE-HAND MONITOR 124 mg/dL H Sep 06, 2024 04:27 PM [facility] GLUCOSE-HAND MONITOR CAPILLARY Specime n Type: CAPILLARY Comment: Test performed by: [id number] Meter #: [id number] Ordering Provider: FRANCK TURNER Report Released Date/Time: Sep 06, 2024 05:15 PM Reporting Lab: [address] [address] Performing Lab: [address] [address] GLUCOSE-HAND MONITOR 107 mg/dL H Sep 06, 2024 12:12 PM [facility] GLUCOSE-HAND MONITOR CAPILLARY Specime n Type: CAPILLARY Comment: Test performed by: [id number] Meter #: [id number] Ordering Provider: FRANCK TURNER Report Released Date/Time: Sep 06, 2024 12:29 PM Reporting Lab: [address] [address] Performing Lab: [address] [address] GLUCOSE-HAND MONITOR 181 mg/dL H Sep 06, 2024 06:13 AM [facility] GLUCOSE-HAND MONITOR CAPILLARY Specime n Type: CAPILLARY Comment: Test performed by: [id number] Meter #: [id number] Ordering Provider: FRANCK TURNER Report Released Date/Time: Sep 06, 2024 06:36 AM Reporting Lab: [address] [address] Performing Lab: [address] [address] GLUCOSE-HAND MONITOR 102 mg/dL H Sep 05, 2024 08:47 PM [facility] GLUCOSE-HAND MONITOR CAPILLARY Specime n Type: CAPILLARY Comment: Test performed by: [id number] Meter #: [id number] Ordering Provider: FRANCK TURNER Report Released Date/Time: Sep 06, 2024 02:13 AM Reporting Lab: [address] [address] Performing Lab: [address] [address] GLUCOSE-HAND MONITOR 103 mg/dL H Sep 05, 2024 04:40 PM [facility] GLUCOSE-HAND MONITOR CAPILLARY Specime n Type: CAPILLARY Comment: AAMIR RN notified Test performed by: [id number] Meter #: [id number] Ordering Provider: FRANCK TURNER Report Released Date/Time: Sep 05, 2024 05:11 PM Reporting Lab: [address] [address] Performing Lab: [address] [address] GLUCOSE-HAND MONITOR 113 mg/dL H Sep 05, 2024 12:06 PM [facility] GLUCOSE-HAND MONITOR CAPILLARY Specime n Type: CAPILLARY Comment: Test performed by: [id number] Meter #: [id number] Ordering Provider: FRANCK TURNER Report Released Date/Time: Sep 05, 2024 12:23 PM Reporting Lab: [address] [address] Performing Lab: [address] [address] GLUCOSE-HAND MONITOR 115 mg/dL H Sep 05, 2024 06:26 AM [facility] GLUCOSE-HAND MONITOR CAPILLARY Specime n Type: CAPILLARY Comment: AAMIR Correction Dose Test performed by: [id number] Meter #: [id number] Ordering Provider: FRANCK TURNER Report Released Date/Time: Sep 05, 2024 06:43 AM Reporting Lab: [address] [address] Performing Lab: [address] [address] GLUCOSE-HAND MONITOR 111 mg/dL H Sep 04, 2024 08:59 PM [facility] GLUCOSE-HAND MONITOR CAPILLARY Specime n Type: CAPILLARY Comment: AAMIR RN notified Test performed by: [id number] Meter #: [id number] Ordering Provider: FRANCK TURNER Report Released Date/Time: Sep 04, 2024 09:36 PM Reporting Lab: [address] [address] Performing Lab: [address] [address] GLUCOSE-HAND MONITOR 123 mg/dL H Sep 04, 2024 04:41 PM [facility] GLUCOSE-HAND MONITOR CAPILLARY Specime n Type: CAPILLARY Comment: AAMIR RN notified Test performed by: [id number] Meter #: [id number] Ordering Provider: FRANCK TURNER Report Released Date/Time: Sep 04, 2024 05:03 PM Reporting Lab: [address] [address] Performing Lab: [address] [address] GLUCOSE-HAND MONITOR 118 mg/dL H Sep 04, 2024 12:36 PM [facility] GLUCOSE-HAND MONITOR CAPILLARY Specime n Type: CAPILLARY Comment: AAMIR RN notified Test performed by: [id number] Meter #: [id number] Ordering Provider: FRANCK TURNER Report Released Date/Time: Sep 04, 2024 12:53 PM Reporting Lab: [place] [phone] Performing Lab: [place] [address] GLUCOSE-HAND MONITOR 129 mg/dL H 71-99 Sep 04, 2024 12:03 PM [facility] RESPIRATORY VIRUS PANEL (BIOFIRE) NASOPHARYN X Specimen Type: NASOPHARYNX Comment: ~For Test: RESPIRATORY VIRUS PANEL (BIOFIRE) ~ORDER READ BACK TO: FRANCK TURNER 09/04/24@11:30 Ordering Provider: FRANCK TURNER Report Released Date/Time: Sep 04, 2024 11:33 AM Reporting Lab: [place] [phone] Performing Lab: [place] [phone] ADENOVIRUS (BIOFIRE) Not Detected -Not D etected [...] -Not Detected Sep 04, 2024 06:55 AM [facility] MAGNESIUM PLASMA Specimen Type: PLASM [...] Lab: [place] [facility] [address] [facility] [address] Performing Lab: [facility] [address] [facility] [address] MAGNESIUM 1.8 mg/dL 1.6-2.6 Sep 04, 2024 06:55 AM [facility] PANEL 1 PLASMA Specimen Type: [...] Sep 03, 2024 11:10 AM Reporting Lab: [address] [address] Performing Lab: [address] [address] CREATININE 0.75 mg/dL 0.72-1.25 UREA NITROGEN 13 mg/dL 9-25 GLUCOSE 105 mg/dL H 74-100 SODIUM 128 mmol/L L 136-145 POTASSIUM 3.9 mmol/L 3.5-5.1 CHLORIDE 99 mmol/L 98-107 CO2 21 mmol/L L 22-29 CALCIUM 8.0 mg/dL L 8.4-10.2 ANION GAP 8 meq/L 3-19 eGFR (CKD-EPI) >90 Sep 04, 2024 06:02 AM [facility] GLUCOSE-HAND MONITOR CAPILLARY Specime n Type: CAPILLARY Comment: Test performed by: [id number] Meter #: [id number] Ordering Provider: FRANCK TURNER Report Released Date/Time: Sep 04, 2024 06:28 AM Reporting Lab: [address] [address] Performing Lab: [address] [address] GLUCOSE-HAND MONITOR 114 mg/dL H 71-99 Sep 03, 2024 05:19 PM [facility] GLUCOSE-HAND MONITOR CAPILLARY Specime n Type: CAPILLARY Comment: Test performed by: [id number] Meter #: [id number] Ordering Provider: FRANCK TURNER Report Released Date/Time: Sep 03, 2024 05:37 PM Reporting Lab: [address] [address] Performing Lab: [address] [address] GLUCOSE-HAND MONITOR 124 mg/dL H 71-99 Sep 03, 2024 04:41 PM [facility] GLUCOSE-HAND MONITOR CAPILLARY Specime n Type: CAPILLARY Comment: Test performed by: [id number] Meter #: [id number] Ordering Provider: FRANCK TURNER Report Released Date/Time: Sep 03, 2024 06:09 PM Reporting Lab: [address] [address] Performing Lab: [address] [address] GLUCOSE-HAND MONITOR 112 mg/dL H 71-99 Sep 03, 2024 01:35 PM [facility] CREATININE URINE Specimen Type: URINE Comment: ~Altered mental status with no identifiable cause Ordering Provider: FRANCK TURNER Report Released Date/Time: Sep 02, 2024 04:44 PM Reporting Lab: [address] [address] Performing Lab: [address] [address] CREATININE 150.9 mg/dL Sep 03, 2024 01:35 PM [facility] URINE LYTES URINE Specimen Type : URINE Comment: ~Altered mental status with no identifiable cause Ordering Provider: FRANCK TURNER Report Released Date/Time: Sep 02, 2024 04:44 PM Reporting Lab: [address] [address] Performing Lab: [address] [address] SODIUM 130 mmol/L POTASSIUM 47.6 mmol/L CHLORIDE 137 mmol/L Sep 03, 2024 01:35 PM [facility] UREA NITROGEN URINE Specimen Type : URINE Comment: ~Altered mental status with no identifiable cause Ordering Provider: FRANCK TURNER Report Released Date/Time: Sep 02, 2024 04:44 PM Reporting Lab: [address] [address] Performing Lab: [address] [address] UREA NITROGEN 320 mg/dL Sep 03, 2024 01:35 PM [facility] URINALYSIS WITH REFLEX TO CULTURE URINE Specimen Type: URINE Comment: ~Altered mental status with no identifiable cause Ordering Provider: FRANCK TURNER Report Released Date/Time: Sep 02, 2024 04:44 PM Reporting Lab: [address] [address] Performing Lab: [address] [address] URINE COLOR Yellow Colorless-Yellow APPEARANCE CLOUDY H [...] H 0-28 Sep 03, 2024 01:35 PM [facility] OSMOLALITY URINE Specimen Type: URINE Comment: ~Altered mental status with no identifiable cause Ordering Provider: FRANCK TURNER Report Released Date/Time: Sep 02, 2024 04:44 PM Reporting Lab: [address] [address] Performing Lab: [place] [phone] OSMOLALITY 522 mosm/kg 38-1400 Sep 03, 2024 11:58 AM [facility] GLUCOSE-HAND MONITOR CAPILLARY Specime n Type: CAPILLARY Comment: AAMIR RN notified Test performed by: [id number] Meter #: [id number] Ordering Provider: FRANCK TURNER Report Released Date/Time: Sep 03, 2024 12:15 PM Reporting Lab: [address] [address] Performing Lab: [address] [address] GLUCOSE-HAND MONITOR 135 mg/dL H Sep 03, 2024 07:09 AM [facility] GLUCOSE-HAND MONITOR CAPILLARY Specime n Type: CAPILLARY Comment: Test performed by: [id number] Meter #: [id number] Ordering Provider: FRANCK TURNER Report Released Date/Time: Sep 03, 2024 07:26 AM Reporting Lab: [address] [address] Performing Lab: [address] [address] GLUCOSE-HAND MONITOR 120 mg/dL H -99 Sep 03, 2024 07:05 AM [facility] CBC/PLT BLOOD Specimen Type: BLOOD No comment entered. Ordering Provider: FRANCK TURNER Report Released Date/Time: Sep 02, 2024 04:29 PM Reporting Lab: [address] [address] Performing Lab: [address] [address] WBC 6.9 10*3/uL 5.0-10.0 RBC 3.48 10*6/uL L 4.6-6.2 HGB 9.5 g/dL L 14.0-18.0 HCT 29.1 L 42.0-52.0 MCV 83.6 fL 80.0-94.0 MCH 27.3 pg 27.0-31.0 MCHC 32.6 g/dL 32.0-36.0 PLT 258 10*3/uL 150-450 MPV 10.3 fL 9.0-13.1 RDW 14.8 11.0-16.0 NRBC 0.0 0.0-0.0 Sep 03, 2024 07:05 AM [facility] MAGNESIUM PLASMA Specimen Type: PLASM [...] 02, 2024 04:29 PM Reporting Lab: [address] [address] Performing Lab: [address] [address] MAGNESIUM 1.7 mg/dL 1.6-2.6 Sep 03, 2024 07:05 AM [facility] PANEL 1 PLASMA Specimen Type: [...] 02, 2024 04:29 PM Reporting Lab: [address] [address] Performing Lab: [address] [address] CREATININE 0.82 mg/dL 0.72-1.25 UREA NITROGEN 12 mg/dL 9-25 GLUCOSE 109 mg/dL H 74-100 SODIUM 129 mmol/L L 136-145 POTASSIUM 4.2 mmol/L 3.5-5.1 CHLORIDE 99 mmol/L 98-107 CO2 21 mmol/L L 22-29 CALCIUM 8.1 mg/dL L 8.4-10.2 ANION GAP 9 meq/L 3-19 eGFR (CKD-EPI) 90 Sep 03, 2024 07:05 AM [facility] GLYCOHEMOGLOBIN BLOOD Specimen Type: BLOOD Comment: Prediabetes: 5.7%-6.4% Diabetes: >= 6.5% [facility] guidelines for A1c interpretation: Glycemic control [...] 8.73 and 9.27. Ref: https://ngsp.org/CAPdata.asp. The in-house Glass-Qbix D-100 analyzer has a historical CV <= 2%. Contact the laboratory for further performance characteristics of this assay. Ordering Provider: FRANCK TURNER Report Released Date/Time: Sep 02, 2024 04:29 PM Reporting Lab: [address] [address] Performing Lab: [place] [phone] GLYCOHEMOGLOBIN 5.6 4.4-5.6 Sep 03, 2024 07:05 AM [facility] OSMOLALITY SERUM Specimen Type: SERUM No comment entered. Ordering Provider: FRANCK TURNER Report Released Date/Time: Sep 02, 2024 04:44 PM Reporting Lab: [address] [address] Performing Lab: [address] [address] OSMOLALITY 271 mosm/kg L 280-300 Sep 02, 2024 08:15 PM [facility] GLUCOSE-HAND MONITOR CAPILLARY Specime n Type: CAPILLARY Comment: AAMIR RN notified Test performed by: [id number] Meter #: [id number] Ordering Provider: FRANCK TURNER Report Released Date/Time: Sep 02, 2024 08:57 PM Reporting Lab: [address] [address] Performing Lab: [address] [address] GLUCOSE-HAND MONITOR 126 mg/dL H 71-99 Sep 02, 2024 06:10 PM [facility] MRSA SURVL NARES DNA NARES [...] 02, 2024 05:12 PM Reporting Lab: [address] [address] Performing Lab: [address] [address] MRSA SURVL NARES DNA Negative Negative Sep 02, 2024 05:36 PM [facility] GLUCOSE-HAND MONITOR CAPILLARY Specime n Type: CAPILLARY Comment: Test performed by: [id number] Meter #: [id number] Ordering Provider: FRANCK TURNER Report Released Date/Time: Sep 02, 2024 05:53 PM Reporting Lab: [address] [address] Performing Lab: [address] [address] GLUCOSE-HAND MONITOR 127 mg/dL H 71-99 Aug 29, 2024 10:04 PM [facility] URINALYSIS WITH REFLEX TO CULTURE URINE Specimen Type: URINE Comment: ~For Test: URINALYSIS WITH REFLEX TO CULTURE ~REORDER Ordering Provider: FELISA COLE Report Released Date/Time: Aug 29, 2024 09:36 PM Reporting Lab: [address] [address] Performing Lab: [address] [address] URINE COLOR Yellow Colorless-Yellow APPEARANCE Clear Clear [...] 0-28 Aug 29, 2024 08:32 PM [facility] HIGH SENSITIVITY TROPONIN I PLASMA Specimen Ty [...] 29, 2024 07:55 PM Reporting Lab: [address] [address] Performing Lab: [address] [address] HIGH SENSITIVITY TROPONIN I 7 4-35 Aug 29, 2024 08:32 PM [facility] CBC/PLT BLOOD Specimen Type: BLOOD No comment entered. Ordering Provider: FELISA COLE Report Released Date/Time: Aug 29, 2024 07:55 PM Reporting Lab: [address] [address] Performing Lab: [address] [address] WBC 11.2 10*3/uL H 5.0-10.0 RBC 3.97 10*6/uL L 4.6-6.2 HGB 10.9 g/dL L 14.0-18.0 HCT 33.5 L 42.0-52.0 MCV 84.4 fL 80.0-94.0 MCH 27.5 pg 27.0-31.0 MCHC 32.5 g/dL 32.0-36.0 PLT 230 10*3/uL 150-450 MPV 10.2 fL 9.0-13.1 RDW 14.6 11.0-16.0 NRBC 0.0 0.0-0.0 Aug 29, 2024 08:32 PM [facility] PANEL 5 PLASMA Specimen Type: [...] I information resource can be reached in [facility] in the Tools menu, under the Education [...] 29, 2024 07:55 PM Reporting Lab: [address] [address] Performing Lab: [address] [address] CREATININE 0.85 mg/dL 0.72-1.25 UREA NITROGEN 15 [...] and tobacco- related health factors from the MD facility where the Encounter took place. Current Smoking Status This section includes the most current smoking, or tobacco-related health factor, from the MD facility where the Encounter took place. Date/Time Current Smoking Status Comment Facil ity Feb 06, 2024 10:00 AM VA-TOBACCO USE 30 YEARS OR MORE [facility] Tobacco Use History This section includes a history of the smoking, or tobacco-related health factors, that were collected on or before the date of the Encounter. The data comes from the MD facility where the Encounter took place. Date/Time Smoking Status/Tobacco Use Comment F acility Feb 06, 2024 10:00 AM VA-TOBACCO USE 30 YEARS OR MORE [facility] Feb 06, 2024 10:00 AM VA-TOBACCO USE ADVICE [facility] Feb 06, 2024 10:00 AM VA-TOBACCO USE CHIP UNLOADER NO [facility] Feb 06, 2024 10:00 AM VA-TOBACCO USE MED NO [facility] Feb 06, 2024 10:00 AM VA-TOBACCO USER SOME DAYS [facility] Advance Directives: All historical and current Section Date Range: From patient's date of to the date document was created. This section includes ALL of a patient's completed or amended MD Advance and Rescinded Directives. The entries below indicate that a directive exists for the patient, but an actual copy is not included with this document. The data comes from all [facility]. Date Advance Directives Provider Source Mar 08, 2024 ADVANCE DIRECTIVE DISCUSSION [facility] Radiology Reports: +/- 30 days [...] BRAIN W & W/O: LUIS MANUEL PERDOMO [id number] -1945 M Exm Date: SEP 06, 2024@13:40 Req Phys: AZARSUMMERFRANCK SYDNEY Pat Loc: 5-MED/TEL/09-06-2024@19:09 Img Loc: [facility] Service: [facility] [place] [id number] (Case [id number] COMPLETE) MRI BRAIN W & W/O (MRI Detailed) CPT:99854 Contrast Media : Gadolinium Reason for Study: SEE CLINICAL HISTORY Pharmaceutical: GADOTERIDOL 279.3MG/ML 20ML INJ, 19ml Clinical History: MRI Screening (Required): IMPLANTED DEVICE DOCUMENTATION IMPLANTED DEVICE DOCUMENTATION NOT FOUND Does the [place] have any Cardiac Implants? None Does the [place] have any implanted stimulators? None Does the have cochlear implants? No Does the have Cerebral aneurysm clip(s)? I don't know Does the [place] have any shrapnel? I don't know If yes, where in your body? Please list other implants not listed above: MRI table has a weight limit of 551 lbs. [place]'s Weight: *212 lb [96.16 kg] (09/04/2024 05:19) Is this patient claustrophobic?: No REASON FOR EXAM:MULTIPLE SCLEROSIS (indicate suspected or established) PERTINENT PATIENT HISTORY: MS c/f for flare Risk factors for GADOLINIUM NEPHROGENIC SYSTEMIC SCLEROSIS: Report Status: Verified Date Reported: SEP 06, 2024 Date Verified: SEP 06, 2024 Scleroscope Tester E-Sig: Report: MRI brain without and with [...] Staff: ARCENIO LEYVA, Staff Radiologist Verified by residential treatment specialist for ARCENIO LEYVA /ARCENIO AVILA AAMIRWILSON-CDD [facility] Sep 06, 2024 01:40 PM MRI C SPINE W & W/ O CONTRAST(FURTHER SEQUENCES): LUIS MANUEL PERDOMO [id number] -1945 M Exm Date: SEP 06, 2024@13:40 Req Phys: FRANCK TURNER [facility] Loc: 5-MED/TEL/09-07-2024@06:42 Img Loc: [facility] Service: [place] [address] (Case [id number] COMPLETE) MRI C SPINE W & W/O CONTRAST(FURT(MRI Detailed) CPT:58604 Contrast Media : Gadolinium Reason for Study: [...] the have cochlear implants? No Does the [place] have Cerebral aneurysm clip(s)? I don't know Does the [place] have any shrapnel? I don't know If [...] 07, 2024 Date Verified: SEP 07, 2024 Scleroscope Tester E-Sig: Report: EXAMINATION: MRI OF THE CERVICAL [...] Interpreting Staff: HUANG TAI, Radiologist Verified by residential treatment specialist for HUANG TAI /HUANG WHE[facility]LEY-[facility] Sep 03, 2024 10:45 AM CHEST SINGLE(1) EW: LUIS MANUEL PERDOMO [id number] -1945 M Ex Date: SEP 03, 2024@10:45 Req Phys: ALSIP,FRANCK HUANGFRANNY Faith Loc: 5-MED/TEL/09-03-2024@10:56 Img Loc: [facility] Service: [place] [address] (Case [id number] COMPLETE)CHEST SINGLE(1) VIEW (RAD Detailed) CPT:27054 Proc Modifiers : PORTABLE EXAM Reason for Study: Eval volume status Clinical History: Report Status: Verified Date Reported: SEP 03, 2024 Date Verified: SEP 03, 2024 Scleroscope Tester E-Sig: Report: EXAMINATION: SINGLE VIEW CHEST CLINICAL [...] Interpreting Staff: HUANG TAI, Radiologist Verified by residential treatment specialist for HUANG TAI /HUANG WHEATLEY-[facility] Aug 29, 2024 08:[address] HEAD W/O CONT: LEANNELUIS MANUEL PERALTA [id number] -[id number] M Exm Date: AUG 29, 2024@20:28 Req Phys: FELISA COLE Loc: ED/4P-12A (Req'g Loc) Img Loc: CT SCAN Service: [place] [address] (Case [id number] COMPLETE) CT HEAD W/O CONT (CT Detailed) CPT:07678 Reason for Study: SEE CLINICAL HISTORY Clinical History: REASON FOR SEND OUT: ATTENDING PHYSICIAN NAME: New transient neurological s/s - suspected TIA HISTORY/REASON FOR EXAM: confusion Report Status: Verified Date Reported: AUG 29, 2024 Date Verified: AUG 29, 2024 Scleroscope Tester E-Sig: Report: HISTORY confusion COMPARISON No prior [...] Staff: ABDIRAHMAN CROW, Staff Physician Verified by residential treatment specialist for [facility]BDIRAHMAN CROW [facility] Reports: +/- 30 days of [...] PORT: Reporting Lab: [facility] [CLIA# [id number]] [address] [place] [id number] Accession [UID]: [id number] [[id number]] Received: Sep 03, 2024@14:02 Collection sample: URINE, [...] Report Performed By: [facility] [CLIA# [id number]] [address] [place] [id number] MAGDY CALABRESE [facility] Sep 02, 2024 06:00 PM LR MICROBIOLOGY RE PORT: Reporting Lab: [facility] [CLIA# [id number]] [address] [place] [id number] Accession [UID]: [id number] [[id number]] Received: Sep 02, 2024@18:07 Collection sample: BLD CULTURE BOTTLES Collection date: Sep 02, 2024 18:00 Site/Specimen: BLOOD Provider: FRANCK TURNER Comment on specimen: L HAND Test(s) ordered: CULTURE, BLOOD................ completed: Sep 08, 2024 * BACTERIOLOGY FINAL REPORT => Sep 08, 2024 08:25 [facility] CODE: [id number] Bacteriology Remark(s): Blood culture status=NO GROWTH (unless notified otherwise) 09/03/2024 AEROBIC: NO GROWTH ANAEROBIC: NO GROWTH =--=--=--=--=--=--=--=--=--=-- =--=--=--=--=--=--=--=--=--=-- =--=--=--=--=--=-- Performing Laboratory: Bacteriology Report Performed By: [facility] [CLIA# [id number]] [address] [place] [id number] MAGDY CALABRESE [facility] Aug 29, 2024 10:18 PM LR MICROBIOLOGY RE PORT: Reporting Lab: [facility] [CLIA# [id number]] [address] [place] [id number] Accession [UID]: [id number] [[id number]] Received: Aug 29, 2024@22:18 Collection sample: URINE, CLEAN CATCH Collection date: Aug 29, 2024 22:18 Site/Specimen: URINE Provider: FELISA COLE Test(s) ordered: CULTURE, URINE................ completed: Aug 31, 2024 09:51 * BACTERIOLOGY FINAL REPORT => Aug 31, 2024 09:51 TECH CODE: [id number] Bacteriology Remark(s): NO GROWTH 08/30/2024 <10,000 CFU/ML. 08/31/2024 =--=--=--=--=--=--=--=--=--=-- =--=--=--=--=--=--=--=--=--=-- =--=--=--=--=--=-- Performing Laboratory: Bacteriology Report Performed By: [facility] [CLIA# [id number]] [address] [place] [address] MAGDY CALABRESE[facility]
--- OUTSIDE RECORDS SUMMARY | 2024-09-05 00:49 | XMS_ITS ---
[place] DAILY HOSPITALIZATION DATA [facility] Encounter Summary Created on: September 22, 2024 LUIS MANUEL PERDOMO : 1945 Sex: Male Author Name Department of [facility] ([place] Organization Department of [facility] [place] Address [address] [place] [address] Care Team Providers Care Inventory Accountant Name Role Phone YULISSA HENDERSON Primary Care Provider Unavailab JMAES Almanza Unavailable Unavailable Insurance Providers: All historical [...] PLAN F Mar 24, 2014 PLAN F [id number] LUIS MANUEL PERDOMO PATIENT [facility] [place] [facility] PREFERRED PROVIDER ORGANIZAT ION (PPO) [facility] SLE Sep 21, 2012 [id number] LUIS MANUEL PERDOMO PATIENT [employer] ([id number]) PRESCRIPT ION WL3A Sep 21, 2012 WL3A [id number] [phone] LUIS MANUEL PERDOMO PATIENT MEDICARE (WNR) MEDICARE (M) PART B Sep 21, 2012 PART B [id number] NOEMI PERDOMO PATIENT MEDICARE (WNR) MEDICARE (M) PART A Jan 22, 2011 PART A [id number] [phone] LEANNE, NOEMI PATIENT MEDICARE PART D (WNR) MEDICARE (M) PART D Mar 24, 2014 PART D [id number] LUIS MANUEL PERDOMO PATIENT Selected Encounter This section includes the information on record at [place] for the Encounter. Date/Time Encounter Type Encounter Description Reason Pro vider Source Sep 05, 2024 04:49 AM Inpatient Visit DAILY HOSPITALIZATION DATA [facility] Encounter Template Text not used by [place] Plan of Treatment: Future Appointments (+ 6 months) and Future Tests (+/- 45 days) The Plan of Treatment section includes future care activities for the [facility] [place] [facility] This section includes future appointments [...] 13, 2024 08:00 AM AMBULATORY - NONE [facility] Sep 30, 2024 01:30 PM AMBULATORY - SURGERY [place] [facility] Active, Pending, and Scheduled Orders This section includes a listing of several types of active, pending, and scheduled orders, including clinic medications orders, diagnostic test orders, procedure orders and consult orders; where the start date of the order is 45 days before the date of the Encounter or 45 days after the date of theEncounter. The data comes from all [facility] facilities. Test Date/Time Test Type Test Details Facility Name Sep 13, 2024 01:33 PM Consult Order [facility] Cons Dog Raiser's Choice [facility] Lab Results: [...] Type Comment Sep 09, 2024 12:16 PM [facility] GLUCOSE-HAND MONITOR CAPILLARY Specimen Type: CAPILLARY Comment: Test performed by: [id number] Meter #: [id number] Ordering Provider: FRANCK TURNER Report Released Date/Time: Sep 09, 2024 12:33 PM Reporting Lab: [address] [address] Performing Lab: [address] [address] GLUCOSE-HAND MONITOR 116 mg/dL H Sep 09, 2024 06:07 AM [facility] GLUCOSE-HAND MONITOR CAPILLARY Specime n Type: CAPILLARY Comment: Test performed by: [id number] Meter #: [id number] Ordering Provider: FRANCK TURNER Report Released Date/Time: Sep 09, 2024 08:17 AM Reporting Lab: [address] [address] Performing Lab: [address] [address] GLUCOSE-HAND MONITOR 112 mg/dL H Sep 08, 2024 09:13 PM [facility] GLUCOSE-HAND MONITOR CAPILLARY Specime n Type: CAPILLARY Comment: Test performed by: [id number] Meter #: [id number] Ordering Provider: FRANCK TURNER Report Released Date/Time: Sep 08, 2024 09:31 PM Reporting Lab: [address] [address] Performing Lab: [address] [address] GLUCOSE-HAND MONITOR 107 mg/dL H Sep 08, 2024 03:49 PM [facility] GLUCOSE-HAND MONITOR CAPILLARY Specime n Type: CAPILLARY Comment: AAMIR RN notified Test performed by: [id number] Meter #: [id number] Ordering Provider: FRANCK TURNER Report Released Date/Time: Sep 08, 2024 04:33 PM Reporting Lab: [address] [address] Performing Lab: [address] [address] GLUCOSE-HAND MONITOR 162 mg/dL H Sep 08, 2024 11:43 AM [facility] GLUCOSE-HAND MONITOR CAPILLARY Specime n Type: CAPILLARY Comment: AAMIR RN notified Test performed by: [id number] Meter #: [id number] Ordering Provider: FRANCK TURNER Report Released Date/Time: Sep 08, 2024 12:03 PM Reporting Lab: [address] [address] Performing Lab: [address] [address] GLUCOSE-HAND MONITOR 133 mg/dL H Sep 08, 2024 06:13 AM [facility] GLUCOSE-HAND MONITOR CAPILLARY Specime n Type: CAPILLARY Comment: Test performed by: [id number] Meter #: [id number] Ordering Provider: FRANCK TURNER Report Released Date/Time: Sep 08, 2024 06:46 AM Reporting Lab: [address] [address] Performing Lab: [address] [address] GLUCOSE-HAND MONITOR 104 mg/dL H Sep 07, 2024 07:59 PM [facility] GLUCOSE-HAND MONITOR CAPILLARY Specime n Type: CAPILLARY Comment: Test performed by: [id number] Meter #: [id number] Ordering Provider: FRANCK TURNER Report Released Date/Time: Sep 07, 2024 09:05 PM Reporting Lab: [address] [address] Performing Lab: [address] [address] GLUCOSE-HAND MONITOR 107 mg/dL H Sep 07, 2024 04:39 PM [facility] GLUCOSE-HAND MONITOR CAPILLARY Specime n Type: CAPILLARY Comment: Test performed by: [id number] Meter #: [id number] Ordering Provider: FRANCK TURNER Report Released Date/Time: Sep 07, 2024 05:09 PM Reporting Lab: [address] [address] Performing Lab: [address] [address] GLUCOSE-HAND MONITOR 105 mg/dL H Sep 07, 2024 11:41 AM [facility] GLUCOSE-HAND MONITOR CAPILLARY Specime n Type: CAPILLARY Comment: Test performed by: [id number] Meter #: [id number] Ordering Provider: FRANCK TURNER Report Released Date/Time: Sep 07, 2024 12:41 PM Reporting Lab: [address] [address] Performing Lab: [address] [address] GLUCOSE-HAND MONITOR 144 mg/dL H Sep 07, 2024 05:56 AM [facility] GLUCOSE-HAND MONITOR CAPILLARY Specime n Type: CAPILLARY Comment: Test performed by: [id number] Meter #: [id number] Ordering Provider: FRANCK TURNER Report Released Date/Time: Sep 07, 2024 06:31 AM Reporting Lab: [address] [address] Performing Lab: [address] [address] GLUCOSE-HAND MONITOR 96 mg/dL Sep 06, 2024 08:10 PM [facility] GLUCOSE-HAND MONITOR CAPILLARY Specime n Type: CAPILLARY Comment: Test performed by: [id number] Meter #: [id number] Ordering Provider: FRANCK TURNER Report Released Date/Time: Sep 06, 2024 08:52 PM Reporting Lab: [address] [address] Performing Lab: [address] [address] GLUCOSE-HAND MONITOR 124 mg/dL H Sep 06, 2024 04:27 PM [facility] GLUCOSE-HAND MONITOR CAPILLARY Specime n Type: CAPILLARY Comment: Test performed by: [id number] Meter #: [id number] Ordering Provider: FRANCK TURNER Report Released Date/Time: Sep 06, 2024 05:15 PM Reporting Lab: [address] [address] Performing Lab: [address] [address] GLUCOSE-HAND MONITOR 107 mg/dL H Sep 06, 2024 12:12 PM [facility] GLUCOSE-HAND MONITOR CAPILLARY Specime n Type: CAPILLARY Comment: Test performed by: [id number] Meter #: [id number] Ordering Provider: FRANCK TURNER Report Released Date/Time: Sep 06, 2024 12:29 PM Reporting Lab: [address] [address] Performing Lab: [address] [address] GLUCOSE-HAND MONITOR 181 mg/dL H -Sep 06, 2024 06:13 AM [facility] GLUCOSE-HAND MONITOR CAPILLARY Specime n Type: CAPILLARY Comment: Test performed by: [id number] Meter #: [id number] Ordering Provider: FRANCK TURNER Report Released Date/Time: Sep 06, 2024 06:36 AM Reporting Lab: [address] [address] Performing Lab: [address] [address] GLUCOSE-HAND MONITOR 102 mg/dL H Sep 05, 2024 08:47 PM [facility] GLUCOSE-HAND MONITOR CAPILLARY Specime n Type: CAPILLARY Comment: Test performed by: [id number] Meter #: [id number] Ordering Provider: FRANCK TURNER Report Released Date/Time: Sep 06, 2024 02:13 AM Reporting Lab: [address] [address] Performing Lab: [address] [address] GLUCOSE-HAND MONITOR 103 mg/dL H Sep 05, 2024 04:40 PM [facility] GLUCOSE-HAND MONITOR CAPILLARY Specime n Type: CAPILLARY Comment: AAMIR RN notified Test performed by: [id number] Meter #: [id number] Ordering Provider: FRANCK TURNER Report Released Date/Time: Sep 05, 2024 05:11 PM Reporting Lab: [address] [address] Performing Lab: [address] [address] GLUCOSE-HAND MONITOR 113 mg/dL H Sep 05, 2024 12:06 PM [facility] GLUCOSE-HAND MONITOR CAPILLARY Specime n Type: CAPILLARY Comment: Test performed by: [id number] Meter #: [id number] Ordering Provider: FRANCK TURNER Report Released Date/Time: Sep 05, 2024 12:23 PM Reporting Lab: [address] [address] Performing Lab: [address] [address] GLUCOSE-HAND MONITOR 115 mg/dL H Sep 05, 2024 06:26 AM [facility] GLUCOSE-HAND MONITOR CAPILLARY Specime n Type: CAPILLARY Comment: AAMIR Correction Dose Test performed by: [id number] Meter #: [id number] Ordering Provider: FRANCK TURNER Report Released Date/Time: Sep 05, 2024 06:43 AM Reporting Lab: [address] [address] Performing Lab: [address] [address] GLUCOSE-HAND MONITOR 111 mg/dL H Sep 04, 2024 08:59 PM [facility] GLUCOSE-HAND MONITOR CAPILLARY Specime n Type: CAPILLARY Comment: AAMIR RN notified Test performed by: [id number] Meter #: [id number] Ordering Provider: FRANCK TURNER Report Released Date/Time: Sep 04, 2024 09:36 PM Reporting Lab: [address] [address] Performing Lab: [address] [address] GLUCOSE-HAND MONITOR 123 mg/dL H Sep 04, 2024 04:41 PM [facility] GLUCOSE-HAND MONITOR CAPILLARY Specime n Type: CAPILLARY Comment: AAMIR RN notified Test performed by: [id number] Meter #: [id number] Ordering Provider: FRANCK TURNER Report Released Date/Time: Sep 04, 2024 05:03 PM Reporting Lab: [address] [address] Performing Lab: [address] [address] GLUCOSE-HAND MONITOR 118 mg/dL H Sep 04, 2024 12:36 PM [facility] GLUCOSE-HAND MONITOR CAPILLARY Specime n Type: CAPILLARY Comment: AAMIR RN notified Test performed by: [id number] Meter #: [id number] Ordering Provider: FRANCK TURNER Report Released Date/Time: Sep 04, 2024 12:53 PM Reporting Lab: [address] [address] Performing Lab: [place] [address] GLUCOSE-HAND MONITOR 129 mg/dL H 71-99 Sep 04, 2024 12:03 PM [facility] RESPIRATORY VIRUS PANEL (BIOFIRE) NASOPHARYN X Specimen Type: NASOPHARYNX Comment: ~For Test: RESPIRATORY VIRUS PANEL (BIOFIRE) ~ORDER READ BACK TO: FRANCK TURNER 09/04/24@11:30 Ordering Provider: FRANCK TURNER Report Released Date/Time: Sep 04, 2024 11:33 AM Reporting Lab: [place] [phone] Performing Lab: [place] [phone] ADENOVIRUS (BIOFIRE) Not Detected -Not D etected [...] -Not Detected Sep 04, 2024 06:55 AM [facility] MAGNESIUM PLASMA Specimen Type: PLASM [...] 11:10 AM Reporting Lab: [place] [facility] [address] [facility] [address] Performing Lab: [place] [address] [facility] [address] MAGNESIUM 1.8 mg/dL 1.6-2.6 Sep 04, 2024 06:55 AM [facility] PANEL 1 PLASMA [...] Sep 03, 2024 11:10 AM Reporting Lab: [address] [address] Performing Lab: [address] CREATININE 0.75 mg/dL 0.72-1.25 UREA NITROGEN 13 mg/dL 9-25 GLUCOSE 105 mg/dL H 74-100 SODIUM 128 mmol/L L 136-145 POTASSIUM 3.9 mmol/L 3.5-5.1 CHLORIDE 99 mmol/L 98-107 CO2 21 mmol/L L 22-29 CALCIUM 8.0 mg/dL L 8.4-10.2 ANION GAP 8 meq/L 3-19 eGFR (CKD-EPI) >90 Sep 04, 2024 06:02 AM [facility] GLUCOSE-HAND MONITOR CAPILLARY Specime n Type: CAPILLARY Comment: Test performed by: [id number] Meter #: [id number] Ordering Provider: FRANCK TURNER Report Released Date/Time: Sep 04, 2024 06:28 AM Reporting Lab: [address] Performing Lab: [address] GLUCOSE-HAND MONITOR 114 mg/dL H 71-99 Sep 03, 2024 05:19 PM [facility] GLUCOSE-HAND MONITOR CAPILLARY Specime n Type: CAPILLARY Comment: Test performed by: [id number] Meter #: [id number] Ordering Provider: FRANCK TURNER Report Released Date/Time: Sep 03, 2024 05:37 PM Reporting Lab: [address] Performing Lab: [address] [address] GLUCOSE-HAND MONITOR 124 mg/dL H 71-99 Sep 03, 2024 04:41 PM [facility] GLUCOSE-HAND MONITOR CAPILLARY Specime n Type: CAPILLARY Comment: Test performed by: [id number] Meter #: [id number] Ordering Provider: FRANCK TURNER Report Released Date/Time: Sep 03, 2024 06:09 PM Reporting Lab: [address] [address] Performing Lab: [address] [address] GLUCOSE-HAND MONITOR 112 mg/dL H 71-99 Sep 03, 2024 01:35 PM [facility] CREATININE URINE Specimen Type: URINE Comment: ~Altered mental status with no identifiable cause Ordering Provider: FRANCK TURNER Report Released Date/Time: Sep 02, 2024 04:44 PM Reporting Lab: [facility] [address] [place] [address] Performing Lab: [address] [address] CREATININE 150.9 mg/dL Sep 03, 2024 01:35 PM [facility] URINE LYTES URINE Specimen Type : URINE Comment: ~Altered mental status with no identifiable cause Ordering Provider: FRANCK TURNER Report Released Date/Time: Sep 02, 2024 04:44 PM Reporting Lab: [address] [address] Performing Lab: [address] [address] SODIUM 130 mmol/L POTASSIUM 47.6 mmol/L CHLORIDE 137 mmol/L Sep 03, 2024 01:35 PM [facility] UREA NITROGEN URINE Specimen Type : URINE Comment: ~Altered mental status with no identifiable cause Ordering Provider: FRANCK TURNER Report Released Date/Time: Sep 02, 2024 04:44 PM Reporting Lab: [address] [address] Performing Lab: [address] [address] UREA NITROGEN 320 mg/dL Sep 03, 2024 01:35 PM [facility] URINALYSIS WITH REFLEX TO CULTURE URINE Specimen Type: URINE Comment: ~Altered mental status with no identifiable cause Ordering Provider: FRANCK TURNER Report Released Date/Time: Sep 02, 2024 04:44 PM Reporting Lab: [address] [address] Performing Lab: [address] [address] URINE COLOR Yellow Colorless-Yellow APPEARANCE CLOUDY H [...] H 0-28 Sep 03, 2024 01:35 PM [facility] OSMOLALITY URINE Specimen Type: URINE Comment: ~Altered mental status with no identifiable cause Ordering Provider: FRANCK TURNER Report Released Date/Time: Sep 02, 2024 04:44 PM Reporting Lab: [place] [phone] Performing Lab: [place] [phone] OSMOLALITY 522 mosm/kg 38-1400 Sep 03, 2024 11:58 AM [facility] GLUCOSE-HAND MONITOR CAPILLARY Specime n Type: CAPILLARY Comment: AAMIR RN notified Test performed by: [id number] Meter #: [id number] Ordering Provider: FRANCK TURNER Report Released Date/Time: Sep 03, 2024 12:15 PM Reporting Lab: [address] [address] Performing Lab: [address] [address] GLUCOSE-HAND MONITOR 135 mg/dL H Sep 03, 2024 07:09 AM [facility] GLUCOSE-HAND MONITOR CAPILLARY Specime n Type: CAPILLARY Comment: Test performed by: [id number] Meter #: [id number] Ordering Provider: FRANCK TURNER Report Released Date/Time: Sep 03, 2024 07:26 AM Reporting Lab: [address] [address] Performing Lab: [address] [address] GLUCOSE-HAND MONITOR 120 mg/dL H Sep 03, 2024 07:05 AM [facility] CBC/PLT BLOOD Specimen Type: BLOOD No comment entered. Ordering Provider: FRANCK TURNER Report Released Date/Time: Sep 02, 2024 04:29 PM Reporting Lab: [address] [address] Performing Lab: [address] [address] WBC 6.9 10*3/uL 5.0-10.0 RBC 3.48 10*6/uL L 4.6-6.2 HGB 9.5 g/dL L 14.0-18.0 HCT 29.1 L 42.0-52.0 MCV 83.6 fL 80.0-94.0 MCH 27.3 pg 27.0-31.0 MCHC 32.6 g/dL 32.0-36.0 PLT 258 10*3/uL 150-450 MPV 10.3 fL 9.0-13.1 RDW 14.8 11.0-16.0 NRBC 0.0 0.0-0.0 Sep 03, 2024 07:05 AM [facility] MAGNESIUM PLASMA Specimen Type: PLASM [...] 02, 2024 04:29 PM Reporting Lab: [address] [address] Performing Lab: [address] [address] MAGNESIUM 1.7 mg/dL 1.6-2.6 Sep 03, 2024 07:05 AM [facility] PANEL 1 PLASMA [...] 02, 2024 04:29 PM Reporting Lab: [address] [address] Performing Lab: [address] [address] CREATININE 0.82 mg/dL 0.72-1.25 UREA NITROGEN 12 mg/dL 9-25 GLUCOSE 109 mg/dL H 74-100 SODIUM 129 mmol/L L 136-145 POTASSIUM 4.2 mmol/L 3.5-5.1 CHLORIDE 99 mmol/L 98-107 CO2 21 mmol/L L 22-29 CALCIUM 8.1 mg/dL L 8.4-10.2 ANION GAP 9 meq/L 3-19 eGFR (CKD-EPI) 90 Sep 03, 2024 07:05 AM [facility] GLYCOHEMOGLOBIN BLOOD Specimen Type: BLOOD Comment: Prediabetes: 5.7%-6.4% Diabetes: >= 6.5% [facility] guidelines for A1c interpretation: Glycemic control targets [...] 8.73 and 9.27. Ref: https://ngsp.org/CAPdata.asp. The in-house [employer] D-100 analyzer has a historical CV <= 2%. Contact the laboratory for further performance characteristics of this assay. Ordering Provider: FRANCK TURNER Report Released Date/Time: Sep 02, 2024 04:29 PM Reporting Lab: [address] [address] Performing Lab: [place] [phone] GLYCOHEMOGLOBIN 5.6 4.4-5.6 Sep 03, 2024 07:05 AM [facility] OSMOLALITY SERUM Specimen Type: SERUM No comment entered. Ordering Provider: FRANCK TURNER Report Released Date/Time: Sep 02, 2024 04:44 PM Reporting Lab: [address] [address] Performing Lab: [address] [address] OSMOLALITY 271 mosm/kg L 280-300 Sep 02, 2024 08:15 PM [facility] GLUCOSE-HAND MONITOR CAPILLARY Specime n Type: CAPILLARY Comment: AAMIR DEXTER notified Test performed by: [id number] Meter #: [id number] Ordering Provider: FRANCK TURNER Report Released Date/Time: Sep 02, 2024 08:57 PM Reporting Lab: [address] [address] Performing Lab: [address] [address] GLUCOSE-HAND MONITOR 126 mg/dL H 71-99 Sep 02, 2024 06:10 PM [facility] MRSA SURVL NARES DNA NARES [...] 02, 2024 05:12 PM Reporting Lab: [address] [address] Performing Lab: [address] [address] MRSA SURVL NARES DNA Negative Negative Sep 02, 2024 05:36 PM [facility] GLUCOSE-HAND MONITOR CAPILLARY Specime n Type: CAPILLARY Comment: Test performed by: [id number] Meter #: [id number] Ordering Provider: FRANCK TURNER Report Released Date/Time: Sep 02, 2024 05:53 PM Reporting Lab: [address] [address] Performing Lab: [address] [address] GLUCOSE-HAND MONITOR 127 mg/dL H 71-99 Aug 29, 2024 10:04 PM [facility] URINALYSIS WITH REFLEX TO CULTURE URINE Specimen Type: URINE Comment: ~For Test: URINALYSIS WITH REFLEX TO CULTURE ~REORDER Ordering Provider: FELISA COLE Report Released Date/Time: Aug 29, 2024 09:36 PM Reporting Lab: [address] [address] Performing Lab: [address] [address] URINE COLOR Yellow Colorless-Yellow APPEARANCE Clear Clear [...] /[LPF] 0-28 Aug 29, 2024 08:32 PM [facility]IGH SENSITIVITY TROPONIN I PLASMA Specimen [...] 29, 2024 07:55 PM Reporting Lab: [address] [address] Performing Lab: [address] [address] HIGH SENSITIVITY TROPONIN I 7 4-35 Aug 29, 2024 08:32 PM [facility] CBC/PLT BLOOD Specimen Type: BLOOD No comment entered. Ordering Provider: FELISA COLE Report Released Date/Time: Aug 29, 2024 07:55 PM Reporting Lab: [address] [address] Performing Lab: [address] [address] WBC 11.2 10*3/uL H 5.0-10.0 RBC 3.97 10*6/uL L 4.6-6.2 HGB 10.9 g/dL L 14.0-18.0 HCT 33.5 L 42.0-52.0 MCV 84.4 fL 80.0-94.0 MCH 27.5 pg 27.0-31.0 MCHC 32.5 g/dL 32.0-36.0 PLT 230 10*3/uL 150-450 MPV 10.2 fL 9.0-13.1 RDW 14.6 11.0-16.0 NRBC 0.0 0.0-0.0 Aug 29, 2024 08:32 PM [facility] PLASMA Specimen Type: PLASM [...] 29, 2024 07:55 PM Reporting Lab: [address] [address] Performing Lab: [address] [address] CREATININE 0.85 mg/dL 0.72-1.25 UREA NITROGEN 15 [...] Height Weight Body Mass Index Source Sep 05, 2024 11:09 PM 0 [place] [facility] Sep 05, 2024 08:46 PM 98.0 F 72 /min 145/67 mm[Hg] 18 /min 96 % [facility] Sep 05, 2024 04:39 PM 97.7 F 67 /min 115/63 mm[Hg] 17 /min 94 % 0 [place] Sep 05, 2024 12:47 PM 4 [place] Sep 05, 2024 12:21 PM 5 [place] [facility] Advance Directives: All historical and current Section [...] 08, 2024 ADVANCE DIRECTIVE DISCUSSION [facility] Radiology Reports: +/- 30 days of [...] BRAIN W & W/O: LUIS MANUEL PERDOMO [id number] -1945 M Exm Date: SEP 06, 2024@13:40 Req Phys: FRANCK TURNER Loc: 5-MED/TEL/09-06-2024@19:09 Img Loc: [facility] Service: [place] [address] (Case [id number] COMPLETE) MRI BRAIN W & W/O (MRI Detailed) CPT:86618 Contrast Media : Gadolinium Reason for Study: SEE CLINICAL HISTORY Pharmaceutical: GADOTERIDOL 279.3MG/ML 20ML INJ, 19ml Clinical History: MRI Screening (Required): IMPLANTED DEVICE DOCUMENTATION IMPLANTED DEVICE DOCUMENTATION NOT FOUND Does the [place] have any Cardiac Implants? None Does the have any implanted stimulators? None Does the have cochlear implants? No Does the [place] have Cerebral aneurysm clip(s)? I don't know Does the have any shrapnel? I don't know If yes, where in your body? Please list other implants not listed above: MRI table has a weight limit of 551 lbs. P[place]leton's Weight: *212 lb [96.16 kg] (09/04/2024 05:19) Is this patient claustrophobic?: No REASON FOR EXAM:MULTIPLE SCLEROSIS (indicate suspected or established) PERTINENT PATIENT HISTORY: MS c/f for flare Risk factors for GADOLINIUM NEPHROGENIC SYSTEMIC SCLEROSIS: Report Status: Verified Date Reported: SEP 06, 2024 Date Verified: SEP 06, 2024 Sound Controller E-Sig: Report: MRI brain without and with [...] Staff: ARCENIO LEYVA, Staff Radiologist Verified by disk operator for ARCENIO LEYVA /[facility] Sep 06, 2024 01:40 PM MRI C SPINE W & W/ O CONTRAST(FURTHER SEQUENCES): LUIS MANUEL PERDOMO [id number] -1945 M Exm Date: SEP 06, 2024@13:40 Req Phys: FRANCK TURNERSav Cuevas Loc: 5-MED/TEL/09-07-2024@06:42 Img Loc: [facility] Service: [facility]ICE [place] [id number] (Case [id number] COMPLETE) MRI C SPINE W & W/O CONTRAST(FURT(MRI Detailed) CPT:27089 Contrast Media : Gadolinium Reason for Study: SEE CLINICAL HISTORY Pharmaceutical: GADOTERIDOL 279.3MG/ML 20ML INJ, 19ml Clinical History: STATUS OF PLAIN FILMS:Not performed (Provide justification for MR W/O prior plain films below.) MRI for MS MRI Screening (Required): IMPLANTED DEVICE DOCUMENTATION IMPLANTED DEVICE DOCUMENTATION NOT FOUND Does the [place] have any Cardiac Implants? None Does the [place] have any implanted stimulators? None Does the have cochlear implants? No Does the have Cerebral aneurysm clip(s)? I don't know Does the [place] have any shrapnel? I don't know If yes, where in your body? Please list other implants not listed above: MRI table has a weight limit of 551 lbs. P[place]leton's Weight: *212 lb [96.16 kg] (09/04/2024 05:19) Is this patient claustrophobic?: No REASON FOR EXAM: MULTIPLE SCLEROSIS (indicate suspected or established) PERTINENT PATIENT HISTORY: MS c/f flare Risk factors for GADOLINIUM NEPHROGENIC SYSTEMIC SCLEROSIS: Report Status: Verified Date Reported: SEP 07, 2024 Date Verified: SEP 07, 2024 Sound Controller E-Sig: Report: EXAMINATION: MRI OF THE CERVICAL [...] Interpreting Staff: HUANG TAI, Radiologist Verified by disk operator for HUANG TAI /HUANG WHEATLEY-Sav [facility] Sep 03, 2024 10:45 AM CHEST SINGLE(1) EW: LUIS MANUEL PERDOMO [id number] -[id number] M Exm Date: SEP 03, 2024@10:45 Req Phys: FRANCK TURNER Pat Loc: 5-MED/TEL/09-03-2024@10:56 Img Loc: [facility] RADIOLOGY Service: [place] [address] (Case [id number] COMPLETE)CHEST SINGLE(1) VIEW (RAD Detailed) CPT:34386 Proc Modifiers : PORTABLE EXAM Reason for Study: Eval volume status Clinical History: Report Status: Verified Date Reported: SEP 03, 2024 Date Verified: SEP 03, 2024 Sound Controller E-Sig: Report: EXAMINATION: SINGLE VIEW CHEST CLINICAL [...] Interpreting Staff: HUANG TAI, Radiologist Verified by disk operator for HUANG TAI /HUANG WHEATLEY-Sav [facility] Aug 29, 2024 08:[address] HEAD W/O CONT: LUIS MANUEL PERDOMO [id number] -1945 M Exm Date: AUG 29, 2024@20:28 Req Phys: FELISA COLE Loc: ED/4P-12A (Req'g Loc) Img Loc: CT SCAN Service: [place] [address] (Case [id number] COMPLETE) CT HEAD W/O CONT (CT Detailed) CPT:97975 Reason for Study: SEE CLINICAL HISTORY Clinical History: REASON FOR SEND OUT: ATTENDING PHYSICIAN NAME: New transient neurological s/s - suspected TIA HISTORY/REASON FOR EXAM: confusion Report Status: Verified Date Reported: AUG 29, 2024 Date Verified: AUG 29, 2024 Sound Controller E-Sig: Report: HISTORY confusion COMPARISON No prior [...] Staff: ABDIRAHMAN CROW, Staff Physician Verified by disk operator for ABDIRAHMAN CROW /[facility] Pathology Reports: +/- 30 days of [...] [facility] [CLIA# [id number]] [address] [place] [id number] Accession [UID]: [id number] [[id number]] Received: Sep 03, 2024@14:02 Collection sample: URINE, [...] [facility] [CLIA# [id number]] [address] [place] [id number] [facility] Sep 02, 2024 06:00 PM LR MICROBIOLOGY RE PORT: Reporting Lab: [facility] [CLIA# [id number]] [address] [place], [place] [id number] Accession [UID]: [id number] [[id number]] Received: Sep 02, 2024@18:07 Collection sample: BLD CULTURE BOTTLES Collection date: Sep 02, 2024 18:00 Site/Specimen: BLOOD Provider: FRANCK TURNER Comment on specimen: L HAND Test(s) ordered: CULTURE, BLOOD................ completed: Sep 08, 2024 * BACTERIOLOGY FINAL REPORT => Sep 08, 2024 08:25 TECH CODE: [id number] Bacteriology Remark(s): Blood culture status=NO GROWTH (unless notified otherwise) 09/03/2024 AEROBIC: NO GROWTH ANAEROBIC: NO GROWTH =--=--=--=--=--=--=--=--=--=-- =--=--=--=--=--=--=--=--=--=-- =--=--=--=--=--=-- Performing Laboratory: Bacteriology Report Performed By: [facility] [CLIA# [id number]] [address] [place], [place] [id number] [facility] Aug 29, 2024 10:18 PM LR MICROBIOLOGY RE PORT: Reporting Lab: [facility] [CLIA# [id number]] [address] [place], [place] [id number] Accession [UID]: [id number] [[id number]] Received: Aug 29, 2024@22:18 Collection sample: URINE, CLEAN CATCH Collection date: Aug 29, 2024 22:18 Site/Specimen: URINE Provider: FELISA COLE Test(s) ordered: CULTURE, URINE................ completed: Aug 31, 2024 09:51 * BACTERIOLOGY FINAL REPORT => Aug 31, 2024 09:51 TECH CODE: [id number] Bacteriology Remark(s): NO GROWTH 08/30/2024 <10,000 CFU/ML. 08/31/2024 =--=--=--=--=--=--=--=--=--=-- =--=--=--=--=--=--=--=--=--=-- =--=--=--=--=--=-- Performing Laboratory: Bacteriology Report Performed By: [facility] [IA# [id number]] [address] [place] [address] MAGDY CALABRESE-VUD [facility]
--- OUTSIDE RECORDS SUMMARY | 2024-09-05 01:19 | XMS_ITS ---
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 Name Role Phone YULISSA HENDERSON Primary [...] PLAN F Mar 24, 2014 PLAN F [id number] LUIS MANUEL PERDOMO PATIENT [facility] [place] BLUECARD PREFERRED PROVIDER ORGANIZAT ION (PPO) [facility] SLE Sep 21, 2012 [id number] LUIS MANUEL PERDOMO PATIENT [employer] ([id number]) PRESCRIPT ION WL3A Sep 21, 2012 [id number] LUIS MANUEL PERDOMO PATIENT MEDICARE (WNR) MEDICARE (M) PART B Sep 21, 2012 PART B [id number] NOEMI PERDOMO PATIENT MEDICARE (WNR) MEDICARE (M) PART A Jan 22, 2011 PART A [id number] LEANNE, NOEMI PATIENT MEDICARE PART D (WNR) MEDICARE (M) PART D Mar 24, 2014 PART D [id number] LUIS MANUEL PERDOMO PATIENT Selected Encounter This section includes the information on record at [place] for the Encounter. Date/Time Encounter Type Encounter Description Reason Pro vider Source Sep 05, 2024 05:19 AM Inpatient Visit DAILY HOSPITALIZATION DATA [facility] Encounter Template Text not used by [place] Plan of Treatment: Future Appointments (+ 6 months) and Future Tests (+/- 45 days) The Plan of Treatment section includes future care activities for the patient [facility] [place] [facility] This section includes future appointments [...] 13, 2024 08:00 AM AMBULATORY - NONE [facility] Sep 30, 2024 01:30 PM AMBULATORY - SURGERY [facility] Active, Pending, and Scheduled Orders This section includes a listing of several types of active, pending, and scheduled orders, including clinic medications orders, diagnostic test orders, procedure orders and consult orders; where the start date of the order is 45 days before the date of the Encounter or 45 days after the date of theEncounter. The data comes from all [facility] facilities. Test Date/Time Test Type Test Details Facility Name Sep 13, 2024 01:33 PM Consult Order [facility] Cons Medical Record Specialist's Choice [facility] Lab Results: +/- 30 days of [...] Type Comment Sep 09, 2024 12:16 PM [facility] GLUCOSE-HAND MONITOR CAPILLARY Specimen Type: CAPILLARY Comment: Test performed by: [id number] Meter #: [id number] Ordering Provider: FRANCK TURNER Report Released Date/Time: Sep 09, 2024 12:33 PM Reporting Lab: [address] [address] Performing Lab: [address] [address] GLUCOSE-HAND MONITOR 116 mg/dL H Sep 09, 2024 06:07 AM [facility] GLUCOSE-HAND MONITOR CAPILLARY Specime n Type: CAPILLARY Comment: Test performed by: [id number] Meter #: [id number] Ordering Provider: FRANCK TURNER Report Released Date/Time: Sep 09, 2024 08:17 AM Reporting Lab: [address] [address] Performing Lab: [address] [address] GLUCOSE-HAND MONITOR 112 mg/dL H Sep 08, 2024 09:13 PM [facility] GLUCOSE-HAND MONITOR CAPILLARY Specime n Type: CAPILLARY Comment: Test performed by: [id number] Meter #: [id number] Ordering Provider: FRANCK TURNER Report Released Date/Time: Sep 08, 2024 09:31 PM Reporting Lab: [address] [address] Performing Lab: [address] [address] GLUCOSE-HAND MONITOR 107 mg/dL H Sep 08, 2024 03:49 PM [facility] GLUCOSE-HAND MONITOR CAPILLARY Specime n Type: CAPILLARY Comment: AAMIR RN notified Test performed by: [id number] Meter #: [id number] Ordering Provider: FRANCK TURNER Report Released Date/Time: Sep 08, 2024 04:33 PM Reporting Lab: [address] [address] Performing Lab: [address] [address] GLUCOSE-HAND MONITOR 162 mg/dL H Sep 08, 2024 11:43 AM [facility] GLUCOSE-HAND MONITOR CAPILLARY Specime n Type: CAPILLARY Comment: AAMIR RN notified Test performed by: [id number] Meter #: [id number] Ordering Provider: FRANCK TURNER Report Released Date/Time: Sep 08, 2024 12:03 PM Reporting Lab: [address] [address] Performing Lab: [address] [address] GLUCOSE-HAND MONITOR 133 mg/dL H Sep 08, 2024 06:13 AM [facility] GLUCOSE-HAND MONITOR CAPILLARY Specime n Type: CAPILLARY Comment: Test performed by: [id number] Meter #: [id number] Ordering Provider: FRANCK TURNER Report Released Date/Time: Sep 08, 2024 06:46 AM Reporting Lab: [address] [address] Performing Lab: [address] [address] GLUCOSE-HAND MONITOR 104 mg/dL H Sep 07, 2024 07:59 PM [facility] GLUCOSE-HAND MONITOR CAPILLARY Specime n Type: CAPILLARY Comment: Test performed by: [id number] Meter #: [id number] Ordering Provider: FRANCK TURNER Report Released Date/Time: Sep 07, 2024 09:05 PM Reporting Lab: [address] [address] Performing Lab: [address] [address] GLUCOSE-HAND MONITOR 107 mg/dL H Sep 07, 2024 04:39 PM [facility] GLUCOSE-HAND MONITOR CAPILLARY Specime n Type: CAPILLARY Comment: Test performed by: [id number] Meter #: [id number] Ordering Provider: FRANCK TURNER Report Released Date/Time: Sep 07, 2024 05:09 PM Reporting Lab: [address] [address] Performing Lab: [address] [address] GLUCOSE-HAND MONITOR 105 mg/dL H Sep 07, 2024 11:41 AM [facility] GLUCOSE-HAND MONITOR CAPILLARY Specime n Type: CAPILLARY Comment: Test performed by: [id number] Meter #: [id number] Ordering Provider: FRANCK TURNER Report Released Date/Time: Sep 07, 2024 12:41 PM Reporting Lab: [address] [address] Performing Lab: [address] [address] GLUCOSE-HAND MONITOR 144 mg/dL H Sep 07, 2024 05:56 AM [facility] GLUCOSE-HAND MONITOR CAPILLARY Specime n Type: CAPILLARY Comment: Test performed by: [id number] Meter #: [id number] Ordering Provider: FRANCK TURNER Report Released Date/Time: Sep 07, 2024 06:31 AM Reporting Lab: [address] [address] Performing Lab: [address] [address] GLUCOSE-HAND MONITOR 96 mg/dL Sep 06, 2024 08:10 PM [facility] GLUCOSE-HAND MONITOR CAPILLARY Specime n Type: CAPILLARY Comment: Test performed by: [id number] Meter #: [id number] Ordering Provider: FRANCK TURNER Report Released Date/Time: Sep 06, 2024 08:52 PM Reporting Lab: [address] [address] Performing Lab: [address] [address] GLUCOSE-HAND MONITOR 124 mg/dL H Sep 06, 2024 04:27 PM [facility] GLUCOSE-HAND MONITOR CAPILLARY Specime n Type: CAPILLARY Comment: Test performed by: [id number] Meter #: [id number] Ordering Provider: FRANCK TURNER Report Released Date/Time: Sep 06, 2024 05:15 PM Reporting Lab: [address] [address] Performing Lab: [address] [address] GLUCOSE-HAND MONITOR 107 mg/dL H Sep 06, 2024 12:12 PM [facility] GLUCOSE-HAND MONITOR CAPILLARY Specime n Type: CAPILLARY Comment: Test performed by: [id number] Meter #: [id number] Ordering Provider: FRANCK TURNER Report Released Date/Time: Sep 06, 2024 12:29 PM Reporting Lab: [address] [address] Performing Lab: [address] [address] GLUCOSE-HAND MONITOR 181 mg/dL H -Sep 06, 2024 06:13 AM [facility] GLUCOSE-HAND MONITOR CAPILLARY Specime n Type: CAPILLARY Comment: Test performed by: [id number] Meter #: [id number] Ordering Provider: FRANCK TURNER Report Released Date/Time: Sep 06, 2024 06:36 AM Reporting Lab: [address] [address] Performing Lab: [address] [address] GLUCOSE-HAND MONITOR 102 mg/dL H Sep 05, 2024 08:47 PM [facility] GLUCOSE-HAND MONITOR CAPILLARY Specime n Type: CAPILLARY Comment: Test performed by: [id number] Meter #: [id number] Ordering Provider: FRANCK TURNER Report Released Date/Time: Sep 06, 2024 02:13 AM Reporting Lab: [address] [address] Performing Lab: [address] [address] GLUCOSE-HAND MONITOR 103 mg/dL H Sep 05, 2024 04:40 PM [facility] GLUCOSE-HAND MONITOR CAPILLARY Specime n Type: CAPILLARY Comment: AAMIR RN notified Test performed by: [id number] Meter #: [id number] Ordering Provider: FRANCK TURNER Report Released Date/Time: Sep 05, 2024 05:11 PM Reporting Lab: [address] [address] Performing Lab: [address] [address] GLUCOSE-HAND MONITOR 113 mg/dL H Sep 05, 2024 12:06 PM [facility] GLUCOSE-HAND MONITOR CAPILLARY Specime n Type: CAPILLARY Comment: Test performed by: [id number] Meter #: [id number] Ordering Provider: FRANCK TURNER Report Released Date/Time: Sep 05, 2024 12:23 PM Reporting Lab: [address] [address] Performing Lab: [address] [address] GLUCOSE-HAND MONITOR 115 mg/dL H Sep 05, 2024 06:26 AM [facility] GLUCOSE-HAND MONITOR CAPILLARY Specime n Type: CAPILLARY Comment: AAMIR Correction Dose Test performed by: [id number] Meter #: [id number] Ordering Provider: FRANCK TURNER Report Released Date/Time: Sep 05, 2024 06:43 AM Reporting Lab: [address] [address] Performing Lab: [address] [address] GLUCOSE-HAND MONITOR 111 mg/dL H Sep 04, 2024 08:59 PM [facility] GLUCOSE-HAND MONITOR CAPILLARY Specime n Type: CAPILLARY Comment: AAMIR RN notified Test performed by: [id number] Meter #: [id number] Ordering Provider: FRANCK TURNER Report Released Date/Time: Sep 04, 2024 09:36 PM Reporting Lab: [address] [address] Performing Lab: [address] [address] GLUCOSE-HAND MONITOR 123 mg/dL H Sep 04, 2024 04:41 PM [facility] GLUCOSE-HAND MONITOR CAPILLARY Specime n Type: CAPILLARY Comment: AAMIR RN notified Test performed by: [id number] Meter #: [id number] Ordering Provider: FRANCK TURNER Report Released Date/Time: Sep 04, 2024 05:03 PM Reporting Lab: [address] [address] Performing Lab: [address] [address] GLUCOSE-HAND MONITOR 118 mg/dL H Sep 04, 2024 12:36 PM [facility] GLUCOSE-HAND MONITOR CAPILLARY Specime n Type: CAPILLARY Comment: AAMIR RN notified Test performed by: [id number] Meter #: [id number] Ordering Provider: FRANCK TURNER Report Released Date/Time: Sep 04, 2024 12:53 PM Reporting Lab: [address] [address] Performing Lab: [place] [address] GLUCOSE-HAND MONITOR 129 mg/dL H 71-99 Sep 04, 2024 12:03 PM [facility] RESPIRATORY VIRUS PANEL (BIOFIRE) NASOPHARYN X Specimen Type: NASOPHARYNX Comment: ~For Test: RESPIRATORY VIRUS PANEL (BIOFIRE) ~ORDER READ BACK TO: FRANCK TURNER 09/04/24@11:30 Ordering Provider: FRANCK TURNER Report Released Date/Time: Sep 04, 2024 11:33 AM Reporting Lab: [place] [phone] Performing Lab: [place] [phone] ADENOVIRUS (BIOFIRE) Not Detected -Not D etected [...] -Not Detected Sep 04, 2024 06:55 AM [facility] MAGNESIUM PLASMA Specimen Type: PLASM A [...] 03, 2024 11:10 AM Reporting Lab: [facility] [address] [address] Performing Lab: [place] [address] [address] MAGNESIUM 1.8 mg/dL 1.6-2.6 Sep 04, 2024 06:55 AM [facility] PANEL 1 PLASMA Specimen Type: PLASM [...] Sep 03, 2024 11:10 AM Reporting Lab: [address] [address] Performing Lab: [address] CREATININE 0.75 mg/dL 0.72-1.25 UREA NITROGEN 13 mg/dL 9-25 GLUCOSE 105 mg/dL H 74-100 SODIUM 128 mmol/L L 136-145 POTASSIUM 3.9 mmol/L 3.5-5.1 CHLORIDE 99 mmol/L 98-107 CO2 21 mmol/L L 22-29 CALCIUM 8.0 mg/dL L 8.4-10.2 ANION GAP 8 meq/L 3-19 eGFR (CKD-EPI) >90 Sep 04, 2024 06:02 AM [facility] GLUCOSE-HAND MONITOR CAPILLARY Specime n Type: CAPILLARY Comment: Test performed by: [id number] Meter #: [id number] Ordering Provider: FRANCK TURNER Report Released Date/Time: Sep 04, 2024 06:28 AM Reporting Lab: [address] Performing Lab: [address] GLUCOSE-HAND MONITOR 114 mg/dL H 71-99 Sep 03, 2024 05:19 PM [facility] GLUCOSE-HAND MONITOR CAPILLARY Specime n Type: CAPILLARY Comment: Test performed by: [id number] Meter #: [id number] Ordering Provider: FRANCK TURNER Report Released Date/Time: Sep 03, 2024 05:37 PM Reporting Lab: [address] Performing Lab: [address] [address] GLUCOSE-HAND MONITOR 124 mg/dL H 71-99 Sep 03, 2024 04:41 PM [facility] GLUCOSE-HAND MONITOR CAPILLARY Specime n Type: CAPILLARY Comment: Test performed by: [id number] Meter #: [id number] Ordering Provider: FRANCK TURNER Report Released Date/Time: Sep 03, 2024 06:09 PM Reporting Lab: [address] [address] Performing Lab: [address] [address] GLUCOSE-HAND MONITOR 112 mg/dL H 71-99 Sep 03, 2024 01:35 PM [facility] CREATININE URINE Specimen Type: URINE Comment: ~Altered mental status with no identifiable cause Ordering Provider: FRANCK TURNER Report Released Date/Time: Sep 02, 2024 04:44 PM Reporting Lab: [facility] [address] [place] [address] Performing Lab: [address] [address] CREATININE 150.9 mg/dL Sep 03, 2024 01:35 PM [facility] URINE LYTES URINE Specimen Type : URINE Comment: ~Altered mental status with no identifiable cause Ordering Provider: FRANCK TURNER Report Released Date/Time: Sep 02, 2024 04:44 PM Reporting Lab: [address] [address] Performing Lab: [address] [address] SODIUM 130 mmol/L POTASSIUM 47.6 mmol/L CHLORIDE 137 mmol/L Sep 03, 2024 01:35 PM [facility] UREA NITROGEN URINE Specimen Type : URINE Comment: ~Altered mental status with no identifiable cause Ordering Provider: FRANCK TURNER Report Released Date/Time: Sep 02, 2024 04:44 PM Reporting Lab: [address] [address] Performing Lab: [address] [address] UREA NITROGEN 320 mg/dL Sep 03, 2024 01:35 PM [facility] URINALYSIS WITH REFLEX TO CULTURE URINE Specimen Type: URINE Comment: ~Altered mental status with no identifiable cause Ordering Provider: FRANCK TURNER Report Released Date/Time: Sep 02, 2024 04:44 PM Reporting Lab: [address] [address] Performing Lab: [address] [address] URINE COLOR Yellow Colorless-Yellow APPEARANCE CLOUDY H [...] H 0-28 Sep 03, 2024 01:35 PM [facility] OSMOLALITY URINE Specimen Type: URINE Comment: ~Altered mental status with no identifiable cause Ordering Provider: FRANCK TURNER Report Released Date/Time: Sep 02, 2024 04:44 PM Reporting Lab: [place] [phone] Performing Lab: [place] [phone] OSMOLALITY 522 mosm/kg 38-1400 Sep 03, 2024 11:58 AM [facility] GLUCOSE-HAND MONITOR CAPILLARY Specime n Type: CAPILLARY Comment: AAMIR RN notified Test performed by: [id number] Meter #: [id number] Ordering Provider: FRANCK TURNER Report Released Date/Time: Sep 03, 2024 12:15 PM Reporting Lab: [address] [address] Performing Lab: [address] [address] GLUCOSE-HAND MONITOR 135 mg/dL H Sep 03, 2024 07:09 AM [facility] GLUCOSE-HAND MONITOR CAPILLARY Specime n Type: CAPILLARY Comment: Test performed by: [id number] Meter #: [id number] Ordering Provider: FRANCK TURNER Report Released Date/Time: Sep 03, 2024 07:26 AM Reporting Lab: [address] [address] Performing Lab: [address] [address] GLUCOSE-HAND MONITOR 120 mg/dL H Sep 03, 2024 07:05 AM [facility] CBC/PLT BLOOD Specimen Type: BLOOD No comment entered. Ordering Provider: FRANCK TURNER Report Released Date/Time: Sep 02, 2024 04:29 PM Reporting Lab: [address] [address] Performing Lab: [address] [address] WBC 6.9 10*3/uL 5.0-10.0 RBC 3.48 10*6/uL L 4.6-6.2 HGB 9.5 g/dL L 14.0-18.0 HCT 29.1 L 42.0-52.0 MCV 83.6 fL 80.0-94.0 MCH 27.3 pg 27.0-31.0 MCHC 32.6 g/dL 32.0-36.0 PLT 258 10*3/uL 150-450 MPV 10.3 fL 9.0-13.1 RDW 14.8 11.0-16.0 NRBC 0.0 0.0-0.0 Sep 03, 2024 07:05 AM [facility] MAGNESIUM PLASMA Specimen Type: PLASM A [...] 02, 2024 04:29 PM Reporting Lab: [address] [address] Performing Lab: [address] [address] MAGNESIUM 1.7 mg/dL 1.6-2.6 Sep 03, 2024 07:05 AM [facility] PANEL 1 PLASMA Specimen Type: PLASM [...] 02, 2024 04:29 PM Reporting Lab: [address] [address] Performing Lab: [address] [address] CREATININE 0.82 mg/dL 0.72-1.25 UREA NITROGEN 12 mg/dL 9-25 GLUCOSE 109 mg/dL H 74-100 SODIUM 129 mmol/L L 136-145 POTASSIUM 4.2 mmol/L 3.5-5.1 CHLORIDE 99 mmol/L 98-107 CO2 21 mmol/L L 22-29 CALCIUM 8.1 mg/dL L 8.4-10.2 ANION GAP 9 meq/L 3-19 eGFR (CKD-EPI) 90 Sep 03, 2024 07:05 AM [facility] GLYCOHEMOGLOBIN BLOOD Specimen Type: BLOOD Comment: Prediabetes: 5.7%-6.4% Diabetes: >= 6.5% [place] guidelines for A1c interpretation: Glycemic control targets are based on Shared Decision Making between clinicians and patients. Criteria used to establish an A1c target recommendation can be found at https://www.co.gov/qualityandpatientsafety/ and include the use of result accuracy [...] 8.73 and 9.27. Ref: https://ngsp.org/CAPdata.asp. The in-house [employer] D-100 analyzer has a historical CV <= 2%. Contact the laboratory for further performance characteristics of this assay. Ordering Provider: FRANCK TURNER Report Released Date/Time: Sep 02, 2024 04:29 PM Reporting Lab: [address] [address] Performing Lab: [place] [phone] GLYCOHEMOGLOBIN 5.6 4.4-5.6 Sep 03, 2024 07:05 AM [facility] OSMOLALITY SERUM Specimen Type: SERUM No comment entered. Ordering Provider: FRANCK TURNER Report Released Date/Time: Sep 02, 2024 04:44 PM Reporting Lab: [address] [address] Performing Lab: [address] [address] OSMOLALITY 271 mosm/kg L 280-300 Sep 02, 2024 08:15 PM [facility] GLUCOSE-HAND MONITOR CAPILLARY Specime n Type: CAPILLARY Comment: AAMIR DEXTER notified Test performed by: [id number] Meter #: [id number] Ordering Provider: FRANCK TURNER Report Released Date/Time: Sep 02, 2024 08:57 PM Reporting Lab: [address] [address] Performing Lab: [address] [address] GLUCOSE-HAND MONITOR 126 mg/dL H 71-99 Sep 02, 2024 06:10 PM [facility] MRSA SURVL NARES DNA NARES Specime [...] 02, 2024 05:12 PM Reporting Lab: [address] [address] Performing Lab: [address] [address] MRSA SURVL NARES DNA Negative Negative Sep 02, 2024 05:36 PM [facility] GLUCOSE-HAND MONITOR CAPILLARY Specime n Type: CAPILLARY Comment: Test performed by: [id number] Meter #: [id number] Ordering Provider: FRANCK TURNER Report Released Date/Time: Sep 02, 2024 05:53 PM Reporting Lab: [address] [address] Performing Lab: [address] [address] GLUCOSE-HAND MONITOR 127 mg/dL H 71-99 Aug 29, 2024 10:04 PM [facility] URINALYSIS WITH REFLEX TO CULTURE URINE Specimen Type: URINE Comment: ~For Test: URINALYSIS WITH REFLEX TO CULTURE ~REORDER Ordering Provider: FELISA COLE Report Released Date/Time: Aug 29, 2024 09:36 PM Reporting Lab: [address] [address] Performing Lab: [address] [address] URINE COLOR Yellow Colorless-Yellow APPEARANCE Clear Clear [...] 0-28 Aug 29, 2024 08:[address] [facility] HIGH SENSITIVITY TROPONIN I PLASMA Specimen Ty [...] 29, 2024 07:55 PM Reporting Lab: [address] [address] Performing Lab: [address] [address] HIGH SENSITIVITY TROPONIN I 7 4-35 Aug 29, 2024 08:32 PM [facility] CBC/PLT BLOOD Specimen Type: BLOOD No comment entered. Ordering Provider: FELISA COLE Report Released Date/Time: Aug 29, 2024 07:55 PM Reporting Lab: [address] [address] Performing Lab: [address] [address] WBC 11.2 10*3/uL H 5.0-10.0 RBC 3.97 10*6/uL L 4.6-6.2 HGB 10.9 g/dL L 14.0-18.0 HCT 33.5 L 42.0-52.0 MCV 84.4 fL 80.0-94.0 MCH 27.5 pg 27.0-31.0 MCHC 32.5 g/dL 32.0-36.0 PLT 230 10*3/uL 150-450 MPV 10.2 fL 9.0-13.1 RDW 14.6 11.0-16.0 NRBC 0.0 0.0-0.0 Aug 29, 2024 08:32 PM [facility] 5 PLASMA Specimen Type: PLASM A [...] 29, 2024 07:55 PM Reporting Lab: [address] [address] Performing Lab: [address] [address] CREATININE 0.85 mg/dL 0.72-1.25 UREA NITROGEN 15 [...] 05, 2024 11:09 PM 0 [place] [facility] Sep 05, 2024 08:46 PM 98.0 F 72 /min 145/67 mm[Hg] 18 /min 96 % [facility] Sep 05, 2024 04:39 PM 97.7 F 67 /min 115/63 mm[Hg] 17 /min 94 % 0 [place] Sep 05, 2024 12:47 PM 4 [place] [facility] Sep 05, 2024 12:21 PM 5 [place] Advance Directives: All historical and current [...] 08, 2024 ADVANCE DIRECTIVE DISCUSSION [facility] Radiology Reports: +/- 30 days [...] BRAIN W & W/O: LUIS MANUEL PERDOMO [id number] -1945 M Exm Date: SEP 06, 2024@13:40 Req Phys: FRANCK TURNER Loc: 5-MED/TEL/09-06-2024@19:09 Img Loc: [facility] Service: [place] [address] (Case [id number] COMPLETE) MRI BRAIN W & W/O (MRI Detailed) CPT:90298 Contrast Media : Gadolinium Reason for Study: SEE CLINICAL HISTORY Pharmaceutical: GADOTERIDOL 279.3MG/ML 20ML INJ, 19ml Clinical History: MRI Screening (Required): IMPLANTED DEVICE DOCUMENTATION IMPLANTED DEVICE DOCUMENTATION NOT FOUND Does the [place] have any Cardiac Implants? None Does the have any implanted stimulators? None Does the have cochlear implants? No Does the [place] have Cerebral aneurysm clip(s)? I don't know Does the have any shrapnel? I don't know If yes, where in your body? Please list other implants not listed above: MRI table has a weight limit of 551 lbs. [place]'s Weight: *212 lb [96.16 kg] (09/04/2024 05:19) Is this patient claustrophobic?: No REASON FOR EXAM:MULTIPLE SCLEROSIS (indicate suspected or established) PERTINENT PATIENT HISTORY: MS c/f for flare Risk factors for GADOLINIUM NEPHROGENIC SYSTEMIC SCLEROSIS: Report Status: Verified Date Reported: SEP 06, 2024 Date Verified: SEP 06, 2024 Low Raw Sugar Cutter E-Sig: Report: MRI brain without and with [...] Staff: ARCENIO LEYVA, Staff Radiologist Verified by drapery hanger for ARCENIO LEYVA /ARCENIO AVILA-[facility] Sep 06, 2024 01:40 PM MRI C SPINE W & W/ O CONTRAST(FURTHER SEQUENCES): LUIS MANUEL PERDOMO [id number] -1945 M Exm Date: SEP 06, 2024@13:40 Req Phys: FRANCK TURNERSav Cuevas Loc: 5-MED/TEL/09-07-2024@06:42 Img Loc: [facility] Service: [facility] [place] [id number] (Case [id number] COMPLETE) MRI C SPINE W & W/O CONTRAST(FURT(MRI Detailed) CPT:96979 Contrast Media : Gadolinium Reason for Study: SEE CLINICAL HISTORY Pharmaceutical: GADOTERIDOL 279.3MG/ML 20ML INJ, 19ml Clinical History: STATUS OF PLAIN FILMS:Not performed (Provide justification for MR W/O prior plain films below.) MRI for MS MRI Screening (Required): IMPLANTED DEVICE DOCUMENTATION IMPLANTED DEVICE DOCUMENTATION NOT FOUND Does the [place] have any Cardiac Implants? None Does the [place] have any implanted stimulators? None Does the have cochlear implants? No Does the have Cerebral aneurysm clip(s)? I don't know Does the [place] have any shrapnel? I don't know If yes, where in your body? Please list other implants not listed above: MRI table has a weight limit of 551 lbs. [place]'s Weight: *212 lb [96.16 kg] (09/04/2024 05:19) Is this patient claustrophobic?: No REASON FOR EXAM: MULTIPLE SCLEROSIS (indicate suspected or established) PERTINENT PATIENT HISTORY: MS c/f flare Risk factors for GADOLINIUM NEPHROGENIC SYSTEMIC SCLEROSIS: Report Status: Verified Date Reported: SEP 07, 2024 Date Verified: SEP 07, 2024 Low Raw Sugar Cutter E-Sig: Report: EXAMINATION: MRI OF THE CERVICAL [...] Interpreting Staff: HUANG TAI, Radiologist Verified by drapery hanger for HUANG TAI /HUANG WHEATLEY-[facility] Sep 03, 2024 10:45 AM CHEST SINGLE(1) EW: LUIS MANUEL PERDOMO [id number] -1945 M Exm Date: SEP 03, 2024@10:45 Req Phys: FRANCK TURNER Pat Loc: 5-MED/TEL/09-03-2024@10:56 Img Loc: [facility] RADIOLOGY Service: [place] [address] (Case [id number] COMPLETE)CHEST SINGLE(1) VIEW (RAD Detailed) CPT:45497 Proc Modifiers : PORTABLE EXAM Reason for Study: Eval volume status Clinical History: Report Status: Verified Date Reported: SEP 03, 2024 Date Verified: SEP 03, 2024 Low Raw Sugar Cutter E-Sig: Report: EXAMINATION: SINGLE VIEW CHEST CLINICAL [...] Interpreting Staff: HUANG TAI, Radiologist Verified by drapery hanger for HUANG TAI /HUANG WHEATLEY-Sav [facility] Aug 29, 2024 08:[address] HEAD W/O CONT: LUIS MANUEL PERDOMO [id number] -1945 M Exm Date: AUG 29, 2024@20:28 Req Phys: FELISA COLE Loc: ED/4P-12A (Req'g Loc) Img Loc: CT SCAN Service: Unknown [place] [address] (Case [id number] COMPLETE) CT HEAD W/O CONT (CT Detailed) CPT:41799 Reason for Study: SEE CLINICAL HISTORY Clinical History: REASON FOR SEND OUT: ATTENDING PHYSICIAN NAME: New transient neurological s/s - suspected TIA HISTORY/REASON FOR EXAM: confusion Report Status: Verified Date Reported: AUG 29, 2024 Date Verified: AUG 29, 2024 Low Raw Sugar Cutter E-Sig: Report: HISTORY confusion COMPARISON No [...] Staff: ABDIRAHMAN CROW, Staff Physician Verified by drapery hanger for ABDIRAHMAN CROW /[facility] Pathology Reports: +/- [...] Lab: [facility] [CLIA# [id number]] [address] [place] [id number] Accession [UID]: [id number] [[id number]] Received: Sep 03, 2024@14:02 Collection sample: URINE, [...] By: [facility] [CLIA# [id number]] [address] [place] [id number] [facility]. [facility] Sep 02, 2024 06:00 PM LR MICROBIOLOGY RE PORT: Reporting Lab: [facility] [CLIA# [id number]] [address] [place], [place] [id number] Accession [UID]: [id number] [[id number]] Received: Sep 02, 2024@18:07 Collection sample: BLD CULTURE BOTTLES Collection date: Sep 02, 2024 18:00 Site/Specimen: BLOOD Provider: FRANCK TURNER Comment on specimen: L HAND Test(s) ordered: CULTURE, BLOOD................ completed: Sep 08, 2024 * BACTERIOLOGY FINAL REPORT => Sep 08, 2024 08:25 TECH CODE: [id number] Bacteriology Remark(s): Blood culture status=NO GROWTH (unless notified otherwise) 09/03/2024 AEROBIC: NO GROWTH ANAEROBIC: NO GROWTH =--=--=--=--=--=--=--=--=--=-- =--=--=--=--=--=--=--=--=--=-- =--=--=--=--=--=-- Performing Laboratory: Bacteriology Report Performed By: [facility] [CLIA# [id number]] [address] [place], [place] [id number] MAGDY CALABRESEST. [facility] Aug 29, 2024 10:18 PM LR MICROBIOLOGY RE PORT: Reporting Lab: [facility] [CLIA# [id number]] [address] [place], [place] [id number] Accession [UID]: [id number] [[id number]] Received: Aug 29, 2024@22:18 Collection sample: URINE, CLEAN CATCH Collection date: Aug 29, 2024 22:18 Site/Specimen: URINE Provider: FELISA COLE Test(s) ordered: CULTURE, URINE................ completed: Aug 31, 2024 09:51 * BACTERIOLOGY FINAL REPORT => Aug 31, 2024 09:51 TECH CODE: [id number] Bacteriology Remark(s): NO GROWTH 08/30/2024 <10,000 CFU/ML. 08/31/2024 =--=--=--=--=--=--=--=--=--=-- =--=--=--=--=--=--=--=--=--=-- =--=--=--=--=--=-- Performing Laboratory: Bacteriology Report Performed By: [facility] [IA# [id number]] [address] [place] [address] MAGDY [facility]ABRESE[facility]
--- OUTSIDE RECORDS SUMMARY | 2024-09-05 05:04 | XMS_ITS ---
[place] DAILY HOSPITALIZATION DATA [facility] Encounter Summary Created on: September 22, 2024 LUIS MANUEL PERDOMO : 1945 Sex: Male Author Name [facility] Organization [facility] Address [address] [place] [address] Care Team Providers Care Patternmaker All Around Name Role Phone YULISSA HENDERSON Primary Care [...] PLAN F Mar 24, 2014 PLAN F [id number] LUIS MANUEL PERDOMO PATIENT [facility] [place] BLUECARD PREFERRED PROVIDER ORGANIZAT ION (PPO) [facility] SLE Sep 21, 2012 [id number] LUIS MANUEL PERDOMO PATIENT [employer] ([id number]) PRESCRIPT ION WL3A Sep 21, 2012 [id number] LUIS MANUEL PERDOMO PATIENT MEDICARE (WNR) MEDICARE (M) PART B Sep 21, 2012 PART B [id number] NOEMI PERDOMO PATIENT MEDICARE (WNR) MEDICARE (M) PART A Jan 22, 2011 PART A [id number] LEANNE, NOEMI PATIENT MEDICARE PART D (WNR) MEDICARE (M) PART D Mar 24, 2014 PART D [id number] LUIS MANUEL PERDOMO PATIENT Selected Encounter This section includes the information on record at [place] for the Encounter. Date/Time Encounter Type Encounter Description Reason Pro vider Source Sep 05, 2024 09:04 AM Inpatient Visit DAILY HOSPITALIZATION DATA [facility] Encounter Template Text not used by [place] Plan of Treatment: Future Appointments (+ 6 months) and Future Tests (+/- 45 days) The Plan of Treatment section includes future care activities for the patient [facility] [place] [facility] This section includes future appointments and [...] 13, 2024 08:00 AM AMBULATORY - NONE [facility] Sep 30, 2024 01:30 PM AMBULATORY - SURGERY [place] [facility] Active, Pending, and Scheduled Orders This section includes a listing of several types of active, pending, and scheduled orders, including clinic medications orders, diagnostic test orders, procedure orders and consult orders; where the start date of the order is 45 days before the date of the Encounter or 45 days after the date of theEncounter. The data comes from all [facility] facilities. Test Date/Time Test Type Test Details Facility Name Sep 13, 2024 01:33 PM Consult Order [facility] Cons Lawn Service Manager's Choice [facility] Lab Results: +/- 30 days of the [...] Type Comment Sep 09, 2024 12:16 PM [facility] GLUCOSE-HAND MONITOR CAPILLARY Specimen Type: CAPILLARY Comment: Test performed by: [id number] Meter #: [id number] Ordering Provider: FRANCK TURNER Report Released Date/Time: Sep 09, 2024 12:33 PM Reporting Lab: [address] [address] Performing Lab: [address] [address] GLUCOSE-HAND MONITOR 116 mg/dL H Sep 09, 2024 06:07 AM [facility] GLUCOSE-HAND MONITOR CAPILLARY Specime n Type: CAPILLARY Comment: Test performed by: [id number] Meter #: [id number] Ordering Provider: FRANCK TURNER Report Released Date/Time: Sep 09, 2024 08:17 AM Reporting Lab: [address] [address] Performing Lab: [address] [address] GLUCOSE-HAND MONITOR 112 mg/dL H Sep 08, 2024 09:13 PM [facility] GLUCOSE-HAND MONITOR CAPILLARY Specime n Type: CAPILLARY Comment: Test performed by: [id number] Meter #: [id number] Ordering Provider: FRANCK TURNER Report Released Date/Time: Sep 08, 2024 09:31 PM Reporting Lab: [address] [address] Performing Lab: [address] [address] GLUCOSE-HAND MONITOR 107 mg/dL H Sep 08, 2024 03:49 PM [facility] GLUCOSE-HAND MONITOR CAPILLARY Specime n Type: CAPILLARY Comment: AAMIR RN notified Test performed by: [id number] Meter #: [id number] Ordering Provider: FRANCK TURNER Report Released Date/Time: Sep 08, 2024 04:33 PM Reporting Lab: [address] [address] Performing Lab: [address] [address] GLUCOSE-HAND MONITOR 162 mg/dL H Sep 08, 2024 11:43 AM [facility] GLUCOSE-HAND MONITOR CAPILLARY Specime n Type: CAPILLARY Comment: AAMIR RN notified Test performed by: [id number] Meter #: [id number] Ordering Provider: FRANCK TURNER Report Released Date/Time: Sep 08, 2024 12:03 PM Reporting Lab: [address] [address] Performing Lab: [address] [address] GLUCOSE-HAND MONITOR 133 mg/dL H Sep 08, 2024 06:13 AM [facility] GLUCOSE-HAND MONITOR CAPILLARY Specime n Type: CAPILLARY Comment: Test performed by: [id number] Meter #: [id number] Ordering Provider: FRANCK TURNER Report Released Date/Time: Sep 08, 2024 06:46 AM Reporting Lab: [address] [address] Performing Lab: [address] [address] GLUCOSE-HAND MONITOR 104 mg/dL H Sep 07, 2024 07:59 PM [facility] GLUCOSE-HAND MONITOR CAPILLARY Specime n Type: CAPILLARY Comment: Test performed by: [id number] Meter #: [id number] Ordering Provider: FRANCK TURNER Report Released Date/Time: Sep 07, 2024 09:05 PM Reporting Lab: [address] [address] Performing Lab: [address] [address] GLUCOSE-HAND MONITOR 107 mg/dL H Sep 07, 2024 04:39 PM [facility] GLUCOSE-HAND MONITOR CAPILLARY Specime n Type: CAPILLARY Comment: Test performed by: [id number] Meter #: [id number] Ordering Provider: FRANCK TURNER Report Released Date/Time: Sep 07, 2024 05:09 PM Reporting Lab: [address] [address] Performing Lab: [address] [address] GLUCOSE-HAND MONITOR 105 mg/dL H Sep 07, 2024 11:41 AM [facility] GLUCOSE-HAND MONITOR CAPILLARY Specime n Type: CAPILLARY Comment: Test performed by: [id number] Meter #: [id number] Ordering Provider: FRANCK TURNER Report Released Date/Time: Sep 07, 2024 12:41 PM Reporting Lab: [address] [address] Performing Lab: [address] [address] GLUCOSE-HAND MONITOR 144 mg/dL H Sep 07, 2024 05:56 AM [facility] GLUCOSE-HAND MONITOR CAPILLARY Specime n Type: CAPILLARY Comment: Test performed by: [id number] Meter #: [id number] Ordering Provider: FRANCK TURNER Report Released Date/Time: Sep 07, 2024 06:31 AM Reporting Lab: [address] [address] Performing Lab: [address] [address] GLUCOSE-HAND MONITOR 96 mg/dL Sep 06, 2024 08:10 PM [facility] GLUCOSE-HAND MONITOR CAPILLARY Specime n Type: CAPILLARY Comment: Test performed by: [id number] Meter #: [id number] Ordering Provider: FRANCK TURNER Report Released Date/Time: Sep 06, 2024 08:52 PM Reporting Lab: [address] [address] Performing Lab: [address] [address] GLUCOSE-HAND MONITOR 124 mg/dL H Sep 06, 2024 04:27 PM [facility] GLUCOSE-HAND MONITOR CAPILLARY Specime n Type: CAPILLARY Comment: Test performed by: [id number] Meter #: [id number] Ordering Provider: FRANCK TURNER Report Released Date/Time: Sep 06, 2024 05:15 PM Reporting Lab: [address] [address] Performing Lab: [address] [address] GLUCOSE-HAND MONITOR 107 mg/dL H Sep 06, 2024 12:12 PM [facility] GLUCOSE-HAND MONITOR CAPILLARY Specime n Type: CAPILLARY Comment: Test performed by: [id number] Meter #: [id number] Ordering Provider: FRANCK TURNER Report Released Date/Time: Sep 06, 2024 12:29 PM Reporting Lab: [address] [address] Performing Lab: [address] [address] GLUCOSE-HAND MONITOR 181 mg/dL H -Sep 06, 2024 06:13 AM [facility] GLUCOSE-HAND MONITOR CAPILLARY Specime n Type: CAPILLARY Comment: Test performed by: [id number] Meter #: [id number] Ordering Provider: FRANCK TURNER Report Released Date/Time: Sep 06, 2024 06:36 AM Reporting Lab: [address] [address] Performing Lab: [address] [address] GLUCOSE-HAND MONITOR 102 mg/dL H Sep 05, 2024 08:47 PM [facility] GLUCOSE-HAND MONITOR CAPILLARY Specime n Type: CAPILLARY Comment: Test performed by: [id number] Meter #: [id number] Ordering Provider: FRANCK TURNER Report Released Date/Time: Sep 06, 2024 02:13 AM Reporting Lab: [address] [address] Performing Lab: [address] [address] GLUCOSE-HAND MONITOR 103 mg/dL H Sep 05, 2024 04:40 PM [facility] GLUCOSE-HAND MONITOR CAPILLARY Specime n Type: CAPILLARY Comment: AAMIR RN notified Test performed by: [id number] Meter #: [id number] Ordering Provider: FRANCK TURNER Report Released Date/Time: Sep 05, 2024 05:11 PM Reporting Lab: [address] [address] Performing Lab: [address] [address] GLUCOSE-HAND MONITOR 113 mg/dL H Sep 05, 2024 12:06 PM [facility] GLUCOSE-HAND MONITOR CAPILLARY Specime n Type: CAPILLARY Comment: Test performed by: [id number] Meter #: [id number] Ordering Provider: FRANCK TURNER Report Released Date/Time: Sep 05, 2024 12:23 PM Reporting Lab: [address] [address] Performing Lab: [address] [address] GLUCOSE-HAND MONITOR 115 mg/dL H Sep 05, 2024 06:26 AM [facility] GLUCOSE-HAND MONITOR CAPILLARY Specime n Type: CAPILLARY Comment: AAMIR Correction Dose Test performed by: [id number] Meter #: [id number] Ordering Provider: FRANCK TURNER Report Released Date/Time: Sep 05, 2024 06:43 AM Reporting Lab: [address] [address] Performing Lab: [address] [address] GLUCOSE-HAND MONITOR 111 mg/dL H Sep 04, 2024 08:59 PM [facility] GLUCOSE-HAND MONITOR CAPILLARY Specime n Type: CAPILLARY Comment: AAMIR RN notified Test performed by: [id number] Meter #: [id number] Ordering Provider: FRANCK TURNER Report Released Date/Time: Sep 04, 2024 09:36 PM Reporting Lab: [address] [address] Performing Lab: [address] [address] GLUCOSE-HAND MONITOR 123 mg/dL H Sep 04, 2024 04:41 PM [facility] GLUCOSE-HAND MONITOR CAPILLARY Specime n Type: CAPILLARY Comment: AAMIR RN notified Test performed by: [id number] Meter #: [id number] Ordering Provider: FRANCK TURNER Report Released Date/Time: Sep 04, 2024 05:03 PM Reporting Lab: [address] [address] Performing Lab: [address] [address] GLUCOSE-HAND MONITOR 118 mg/dL H Sep 04, 2024 12:36 PM [facility] GLUCOSE-HAND MONITOR CAPILLARY Specime n Type: CAPILLARY Comment: AAMIR RN notified Test performed by: [id number] Meter #: [id number] Ordering Provider: FRANCK TURNER Report Released Date/Time: Sep 04, 2024 12:53 PM Reporting Lab: [address] [address] Performing Lab: [place] [address] GLUCOSE-HAND MONITOR 129 mg/dL H 71-99 Sep 04, 2024 12:03 PM [facility] RESPIRATORY VIRUS PANEL (BIOFIRE) NASOPHARYN X Specimen Type: NASOPHARYNX Comment: ~For Test: RESPIRATORY VIRUS PANEL (BIOFIRE) ~ORDER READ BACK TO: FRANCK TURNER 09/04/24@11:30 Ordering Provider: FRANCK TURNER Report Released Date/Time: Sep 04, 2024 11:33 AM Reporting Lab: [place] [id number] Performing Lab: [place] [phone] ADENOVIRUS (BIOFIRE) Not Detected -Not D etected [...] -Not Detected Sep 04, 2024 06:55 AM [facility] MAGNESIUM PLASMA Specimen Type: PLASM A Comment: [...] 11:10 AM Reporting Lab: [place] [facility] [address] [facility] [address] Performing Lab: [place] [address] [facility] [address] MAGNESIUM 1.8 mg/dL 1.6-2.6 Sep 04, 2024 06:55 AM [facility] PANEL 1 PLASMA Specimen Type: PLASM A [...] Sep 03, 2024 11:10 AM Reporting Lab: [address] [address] Performing Lab: [address] CREATININE 0.75 mg/dL 0.72-1.25 UREA NITROGEN 13 mg/dL 9-25 GLUCOSE 105 mg/dL H 74-100 SODIUM 128 mmol/L L 136-145 POTASSIUM 3.9 mmol/L 3.5-5.1 CHLORIDE 99 mmol/L 98-107 CO2 21 mmol/L L 22-29 CALCIUM 8.0 mg/dL L 8.4-10.2 ANION GAP 8 meq/L 3-19 eGFR (CKD-EPI) >90 Sep 04, 2024 06:02 AM [facility] GLUCOSE-HAND MONITOR CAPILLARY Specime n Type: CAPILLARY Comment: Test performed by: [id number] Meter #: [id number] Ordering Provider: FRANCK TURNER Report Released Date/Time: Sep 04, 2024 06:28 AM Reporting Lab: [address] Performing Lab: [address] GLUCOSE-HAND MONITOR 114 mg/dL H 71-99 Sep 03, 2024 05:19 PM [facility] GLUCOSE-HAND MONITOR CAPILLARY Specime n Type: CAPILLARY Comment: Test performed by: [id number] Meter #: [id number] Ordering Provider: FRANCK TURNER Report Released Date/Time: Sep 03, 2024 05:37 PM Reporting Lab: [address] Performing Lab: [address] [address] GLUCOSE-HAND MONITOR 124 mg/dL H 71-99 Sep 03, 2024 04:41 PM [facility] GLUCOSE-HAND MONITOR CAPILLARY Specime n Type: CAPILLARY Comment: Test performed by: [id number] Meter #: [id number] Ordering Provider: FRANCK TURNER Report Released Date/Time: Sep 03, 2024 06:09 PM Reporting Lab: [address] [address] Performing Lab: [address] [address] GLUCOSE-HAND MONITOR 112 mg/dL H 71-99 Sep 03, 2024 01:35 PM [facility] URINE LYTES URINE Specimen Type : URINE Comment: ~Altered mental status with no identifiable cause Ordering Provider: FRANCK TURNER Report Released Date/Time: Sep 02, 2024 04:44 PM Reporting Lab: [address] [address] Performing Lab: [address] [address] SODIUM 130 mmol/L POTASSIUM 47.6 mmol/L CHLORIDE 137 mmol/L Sep 03, 2024 01:35 PM [facility] CREATININE URINE Specimen Type: URINE Comment: ~Altered mental status with no identifiable cause Ordering Provider: FRANCK TURNER Report Released Date/Time: Sep 02, 2024 04:44 PM Reporting Lab: [address] [address] Performing Lab: [address] [address] CREATININE 150.9 mg/dL Sep 03, 2024 01:35 PM [facility] OSMOLALITY URINE Specimen Type: URINE Comment: ~Altered mental status with no identifiable cause Ordering Provider: FRANCK TURNER Report Released Date/Time: Sep 02, 2024 04:44 PM Reporting Lab: [address] [address] Performing Lab: [address] [address] OSMOLALITY 522 mosm/kg 38-1400 Sep 03, 2024 01:35 PM [facility] UREA NITROGEN URINE Specimen Type : URINE Comment: ~Altered mental status with no identifiable cause Ordering Provider: FRANCK TURNER Report Released Date/Time: Sep 02, 2024 04:44 PM Reporting Lab: [address] [address] Performing Lab: [address] [address] UREA NITROGEN 320 mg/dL Sep 03, 2024 01:35 PM [facility] URINALYSIS WITH REFLEX TO CULTURE URINE Specimen Type: URINE Comment: ~Altered mental status with no identifiable cause Ordering Provider: FRANCK TURNER Report Released Date/Time: Sep 02, 2024 04:44 PM Reporting Lab: [address] [address] Performing Lab: [address] [address] URINE COLOR Yellow Colorless-Yellow APPEARANCE CLOUDY H [...] H 0-28 Sep 03, 2024 11:58 AM [facility] GLUCOSE-HAND MONITOR CAPILLARY Specime n Type: CAPILLARY Comment: AAMIR RN notified Test performed by: [id number] Meter #: [id number] Ordering Provider: FRANCK TURNER Report Released Date/Time: Sep 03, 2024 12:15 PM Reporting Lab: [address] [address] Performing Lab: [address] [address] GLUCOSE-HAND MONITOR 135 mg/dL H Sep 03, 2024 07:09 AM [facility] GLUCOSE-HAND MONITOR CAPILLARY Specime n Type: CAPILLARY Comment: Test performed by: [id number] Meter #: [id number] Ordering Provider: FRANCK TURNER Report Released Date/Time: Sep 03, 2024 07:26 AM Reporting Lab: [address] [address] Performing Lab: [address] [address] GLUCOSE-HAND MONITOR 120 mg/dL H -Sep 03, 2024 07:05 AM [facility] CBC/PLT BLOOD Specimen Type: BLOOD No comment entered. Ordering Provider: FRANCK TURNER Report Released Date/Time: Sep 02, 2024 04:29 PM Reporting Lab: [facility] [address] [place] [address] Performing Lab: [address] [address] WBC 6.9 10*3/uL 5.0-10.0 RBC 3.48 10*6/uL L 4.6-6.2 HGB 9.5 g/dL L 14.0-18.0 HCT 29.1 L 42.0-52.0 MCV 83.6 fL 80.0-94.0 MCH 27.3 pg 27.0-31.0 MCHC 32.6 g/dL 32.0-36.0 PLT 258 10*3/uL 150-450 MPV 10.3 fL 9.0-13.1 RDW 14.8 11.0-16.0 NRBC 0.0 0.0-0.0 Sep 03, 2024 07:05 AM [facility] PANEL 1 PLASMA Specimen Type: PLASM A [...] Sep 02, 2024 04:29 PM Reporting Lab: [address] [address] Performing Lab: [address] [address] CREATININE 0.82 mg/dL 0.72-1.25 UREA NITROGEN 12 mg/dL 9-25 GLUCOSE 109 mg/dL H 74-100 SODIUM 129 mmol/L L 136-145 POTASSIUM 4.2 mmol/L 3.5-5.1 CHLORIDE 99 mmol/L 98-107 CO2 21 mmol/L L 22-29 CALCIUM 8.1 mg/dL L 8.4-10.2 ANION GAP 9 meq/L 3-19 eGFR (CKD-EPI) 90 Sep 03, 2024 07:05 AM [facility] MAGNESIUM PLASMA Specimen Type: PLASM A Comment: [...] Sep 02, 2024 04:29 PM Reporting Lab: [address] [address] Performing Lab: [address] [address] MAGNESIUM 1.7 mg/dL 1.6-2.6 Sep 03, 2024 07:05 AM [facility] GLYCOHEMOGLOBIN BLOOD Specimen Type: BLOOD Comment: Prediabetes: 5.7%-6.4% Diabetes: >= 6.5% [place]-DoD guidelines for A1c interpretation: Glycemic control targets [...] 8.73 and 9.27. Ref: https://ngsp.org/CAPdata.asp. The in-house [employer] D-100 analyzer has a historical CV <= 2%. Contact the laboratory for further performance characteristics of this assay. Ordering Provider: FRANCK TURNER Report Released Date/Time: Sep 02, 2024 04:29 PM Reporting Lab: [address] [address] Performing Lab: [place] [phone] GLYCOHEMOGLOBIN 5.6 4.4-5.6 Sep 03, 2024 07:05 AM [facility] OSMOLALITY SERUM Specimen Type: SERUM No comment entered. Ordering Provider: FRANCK TURNER Report Released Date/Time: Sep 02, 2024 04:44 PM Reporting Lab: [address] [address] Performing Lab: [address] [address] OSMOLALITY 271 mosm/kg L 280-300 Sep 02, 2024 08:15 PM [facility] GLUCOSE-HAND MONITOR CAPILLARY Specime n Type: CAPILLARY Comment: AAMIR DEXTER notified Test performed by: [id number] Meter #: [id number] Ordering Provider: FRANCK TURNER Report Released Date/Time: Sep 02, 2024 08:57 PM Reporting Lab: [address] [address] Performing Lab: [address] [address] GLUCOSE-HAND MONITOR 126 mg/dL H 71-99 Sep 02, 2024 06:10 PM [facility] MRSA SURVL NARES DNA NARES Specime n [...] Sep 02, 2024 05:12 PM Reporting Lab: [address] [address] Performing Lab: [address] [address] MRSA SURVL NARES DNA Negative Negative Sep 02, 2024 05:36 PM [facility] GLUCOSE-HAND MONITOR CAPILLARY Specime n Type: CAPILLARY Comment: Test performed by: [id number] Meter #: [id number] Ordering Provider: FRANCK TURNER Report Released Date/Time: Sep 02, 2024 05:53 PM Reporting Lab: [address] [address] Performing Lab: [address] [address] GLUCOSE-HAND MONITOR 127 mg/dL H 71-99 Aug 29, 2024 10:04 PM [facility] URINALYSIS WITH REFLEX TO CULTURE URINE Specimen Type: URINE Comment: ~For Test: URINALYSIS WITH REFLEX TO CULTURE ~REORDER Ordering Provider: FELISA COLE Report Released Date/Time: Aug 29, 2024 09:36 PM Reporting Lab: [address] [address] Performing Lab: [address] [address] URINE COLOR Yellow Colorless-Yellow APPEARANCE Clear Clear [...] /[LPF] 0-28 Aug 29, 2024 08:32 PM [facility] HIGH SENSITIVITY TROPONIN I PLASMA Specimen [...] Aug 29, 2024 07:55 PM Reporting Lab: [address] [address] Performing Lab: [address] [address] HIGH SENSITIVITY TROPONIN I 7 4-35 Aug 29, 2024 08:32 PM [facility] CBC/PLT BLOOD Specimen Type: BLOOD No comment entered. Ordering Provider: FELISA COLE Report Released Date/Time: Aug 29, 2024 07:55 PM Reporting Lab: [address] [address] Performing Lab: [address] [address] WBC 11.2 10*3/uL H 5.0-10.0 RBC 3.97 10*6/uL L 4.6-6.2 HGB 10.9 g/dL L 14.0-18.0 HCT 33.5 L 42.0-52.0 MCV 84.4 fL 80.0-94.0 MCH 27.5 pg 27.0-31.0 MCHC 32.5 g/dL 32.0-36.0 PLT 230 10*3/uL 150-450 MPV 10.2 fL 9.0-13.1 RDW 14.6 11.0-16.0 NRBC 0.0 0.0-0.0 Aug 29, 2024 08:32 PM [facility] PANEL 5 PLASMA Specimen Type: PLASM [...] Aug 29, 2024 07:55 PM Reporting Lab: [address] [address] Performing Lab: [address] [address] CREATININE 0.85 mg/dL 0.72-1.25 UREA NITROGEN 15 [...] 05, 2024 11:09 PM 0 [place] [facility] Sep 05, 2024 08:46 PM 98.0 F 72 /min 145/67 mm[Hg] 18 /min 96 % [facility] Sep 05, 2024 04:39 PM 97.7 F 67 /min 115/63 mm[Hg] 17 /min 94 % 0 [place] Sep 05, 2024 12:47 PM 4 [place] [facility] Sep 05, 2024 12:21 PM 5 [place] [facility] Advance Directives: All historical and current [...] 08, 2024 ADVANCE DIRECTIVE DISCUSSION [facility] Radiology Reports: +/- 30 days [...] BRAIN W & W/O: LUIS MANUEL PERDOMO [id number] -1945 M Exm Date: SEP 06, 2024@13:40 Req Phys: FRANCK TURNER Loc: 5-MED/TEL/09-06-2024@19:09 Img Loc: [facility] Service: [facility] [place] [address] (Case [id number] COMPLETE) MRI BRAIN W & W/O (MRI Detailed) CPT:63884 Contrast Media : Gadolinium Reason for Study: SEE CLINICAL HISTORY Pharmaceutical: GADOTERIDOL 279.3MG/ML 20ML INJ, 19ml Clinical History: MRI Screening (Required): IMPLANTED DEVICE DOCUMENTATION IMPLANTED DEVICE DOCUMENTATION NOT FOUND Does the [place] have any Cardiac Implants? None Does the have any implanted stimulators? None Does the have cochlear implants? No Does the [place] have Cerebral aneurysm clip(s)? I don't know Does the have any shrapnel? I don't know If yes, where in your body? Please list other implants not listed above: MRI table has a weight limit of 551 lbs. [place]'s Weight: *212 lb [96.16 kg] (09/04/2024 05:19) Is this patient claustrophobic?: No REASON FOR EXAM:MULTIPLE SCLEROSIS (indicate suspected or established) PERTINENT PATIENT HISTORY: MS c/f for flare Risk factors for GADOLINIUM NEPHROGENIC SYSTEMIC SCLEROSIS: Report Status: Verified Date Reported: SEP 06, 2024 Date Verified: SEP 06, 2024 Prototype Machine Operator E-Sig: Report: MRI brain without and [...] Staff: ARCENIO LEYVA, Staff Radiologist Verified by rivet machine operator for ARCENIO LEYVA /ARCENIO AVILA-CDD [facility] Sep 06, 2024 01:40 PM MRI C SPINE W & W/ O CONTRAST(FURTHER SEQUENCES): LUIS MANUEL PERDOMO [id number] -1945 M Exm Date: SEP 06, 2024@13:40 Req Phys: FRANCK TURNERSav Cuevas Loc: 5-MED/TEL/09-07-2024@06:42 Img Loc: [facility] Service: [facility] [place] [id number] (Case [id number] COMPLETE) MRI C SPINE W & W/O CONTRAST(FURT(MRI Detailed) CPT:06642 Contrast Media : Gadolinium Reason for Study: SEE CLINICAL HISTORY Pharmaceutical: GADOTERIDOL 279.3MG/ML 20ML INJ, 19ml Clinical History: STATUS OF PLAIN FILMS:Not performed (Provide justification for MR W/O prior plain films below.) MRI for MS MRI Screening (Required): IMPLANTED DEVICE DOCUMENTATION IMPLANTED DEVICE DOCUMENTATION NOT FOUND Does the [place] have any Cardiac Implants? None Does the [place] have any implanted stimulators? None Does the have cochlear implants? No Does the have Cerebral aneurysm clip(s)? I don't know Does the [place] have any shrapnel? I don't know If yes, where in your body? Please list other implants not listed above: MRI table has a weight limit of 551 lbs. [place]'s Weight: *212 lb [96.16 kg] (09/04/2024 05:19) Is this patient claustrophobic?: No REASON FOR EXAM: MULTIPLE SCLEROSIS (indicate suspected or established) PERTINENT PATIENT HISTORY: MS c/f flare Risk factors for GADOLINIUM NEPHROGENIC SYSTEMIC SCLEROSIS: Report Status: Verified Date Reported: SEP 07, 2024 Date Verified: SEP 07, 2024 Prototype Machine Operator E-Sig: Report: EXAMINATION: MRI OF THE [...] Interpreting Staff: HUANG TAI, Radiologist Verified by rivet machine operator for HUANG TAI /HUANG WHEATLEY-Sav [facility] Sep 03, 2024 10:45 AM CHEST SINGLE(1) EW: LUIS MANUEL PERDOMO [id number] -1945 M Exm Date: SEP 03, 2024@10:45 Req Phys: FRANCK TURNER Pat Loc: 5-MED/TEL/09-03-2024@10:56 Img Loc: CDD RADIOLOGY Service: [facility] [place] [address] (Case [id number] COMPLETE)CHEST SINGLE(1) VIEW (RAD Detailed) CPT:36507 Proc Modifiers : PORTABLE EXAM Reason for Study: Eval volume status Clinical History: Report Status: Verified Date Reported: SEP 03, 2024 Date Verified: SEP 03, 2024 Prototype Machine Operator E-Sig: Report: EXAMINATION: SINGLE VIEW CHEST [...] Interpreting Staff: HUANG TAI, Radiologist Verified by rivet machine operator for HUANG TAI /HUANG WHEATLEY-Sav [facility] Aug 29, 2024 08:[address] HEAD W/O CONT: LUIS MANUEL PERDOMO [id number] -1945 M Exm Date: AUG 29, 2024@20:28 Req Phys: FELISA COLE Loc: ED/4P-12A (Req'g Loc) Img Loc: CT SCAN Service: [place] [address] (Case [id number] COMPLETE) CT HEAD W/O CONT (CT Detailed) CPT:93080 Reason for Study: SEE CLINICAL HISTORY Clinical History: REASON FOR SEND OUT: ATTENDING PHYSICIAN NAME: New transient neurological s/s - suspected TIA HISTORY/REASON FOR EXAM: confusion Report Status: Verified Date Reported: AUG 29, 2024 Date Verified: AUG 29, 2024 Prototype Machine Operator E-Sig: Report: HISTORY confusion COMPARISON No [...] Staff: ABDIRAHMAN CROW, Staff Physician Verified by rivet machine operator for ABDIRAHMAN CROW /[facility] Pathology Reports: +/- 30 days of [...] Reporting Lab: [facility] [CLIA# [id number]] [address] [place] [id number] Accession [UID]: [id number] [[id number]] Received: Sep 03, 2024@14:02 Collection sample: URINE, [...] Performed By: [facility] [CLIA# [id number]] [address] [place] [id number] [facility] Sep 02, 2024 06:00 PM LR MICROBIOLOGY RE PORT: Reporting Lab: [facility] [CLIA# [id number]] [address] [place], [place] [id number] Accession [UID]: [id number] [[id number]] Received: Sep 02, 2024@18:07 Collection sample: BLD CULTURE BOTTLES Collection date: Sep 02, 2024 18:00 Site/Specimen: BLOOD Provider: FRANCK TURNER Comment on specimen: L HAND Test(s) ordered: CULTURE, BLOOD................ completed: Sep 08, 2024 * BACTERIOLOGY FINAL REPORT => Sep 08, 2024 08:25 TECH CODE: [id number] Bacteriology Remark(s): Blood culture status=NO GROWTH (unless notified otherwise) 09/03/2024 AEROBIC: NO GROWTH ANAEROBIC: NO GROWTH =--=--=--=--=--=--=--=--=--=-- =--=--=--=--=--=--=--=--=--=-- =--=--=--=--=--=-- Performing Laboratory: Bacteriology Report Performed By: [facility] [CLIA# [id number]] [address] [place], [place] [id number] [facility] Aug 29, 2024 10:18 PM LR MICROBIOLOGY RE PORT: Reporting Lab: [facility] [CLIA# [id number]] [address] [place], [place] [id number] Accession [UID]: [id number] [[id number]] Received: Aug 29, 2024@22:18 Collection sample: URINE, CLEAN CATCH Collection date: Aug 29, 2024 22:18 Site/Specimen: URINE Provider: FELISA COLE Test(s) ordered: CULTURE, URINE................ completed: Aug 31, 2024 09:51 * BACTERIOLOGY FINAL REPORT => Aug 31, 2024 09:51 TECH CODE: [id number] Bacteriology Remark(s): NO GROWTH 08/30/2024 <10,000 CFU/ML. 08/31/2024 =--=--=--=--=--=--=--=--=--=-- =--=--=--=--=--=--=--=--=--=-- =--=--=--=--=--=-- Performing Laboratory: Bacteriology Report Performed By: [facility] [IA# [id number]] [address] [place] [address] MAGDY CALABRESE-VUD [facility]
--- OUTSIDE RECORDS SUMMARY | 2024-09-05 10:03 | XMS_ITS | Encounter Summary ---
Author Name [facility] [place] Organization [facility] [place] [facility] [place] Address [address] [place] [id number] Care Team Providers Care Production Team Manager Name Role Phone YULISSA HENDRESON Primary Care Provider Unavailab JAMES Almanza Unavailable [...] PLAN F Mar 24, 2014 PLAN F [id number] LUIS MANUEL PERDOMO PATIENT [facility] BLUECARD PREFERRED PROVIDER ORGANIZAT ION (PPO) [facility] Sep 21, 2012 [id number] LUIS MANUEL PERDOMO PATIENT [employer] ([id number]) PRESCRIPT ION WL3A Sep 21, 2012 [id number] LUIS MANUEL PERDOMO PATIENT MEDICARE (WNR) MEDICARE (M) PART B Sep 21, 2012 PART B [id number] NOEMI PERDOMO PATIENT MEDICARE (WNR) MEDICARE (M) PART A Jan 22, 2011 PART A [id number] NOEMI PERDOMO PATIENT MEDICARE PART D (WNR) MEDICARE (M) PART D Mar 24, 2014 PART D [id number] LUIS MANUEL PERDOMO PATIENT Selected Encounter This section includes the information on record at [place] for the Encounter. Date/Time Encounter Type Encounter Description Reason Provider Source Sep 05, 2024 02:03 PM [facility] IP/OBS MODERATE 35 [facility]AL INTERNAL [facility]IC[facility] UN I[facility] Encounter Template Text not used by [place] Plan of Treatment: Future Appointments (+ 6 months) and Future Tests (+/- 45 days) The Plan of Treatment section includes future care activities for the patient from all [place] treatmentfacilities. This section includes future appointments and future orders which are active, pending or scheduled. Future Appointments This section includes appointments that were scheduled to occur 6 months from the date of the Encounter, up to a maximum of 20 appointments. The data comes from all [place] treatment facilities. Appointment Date/Time Appointment Type Appointme nt Facility Name Sep 13, 2024 08:00 AM [facility] [facility] Sep 30, 2024 01:30 PM [facility]ORY - SURGERY [place] [facility] Active, Pending, and Scheduled Orders This section includes a listing of several types of active, pending, and scheduled orders, including clinic medications orders, diagnostic test orders, procedure orders and consult orders; where the start date of the order is 45 days before the date of the Encounter or 45 days after the date of theEncounter. The data comes from all [place] treatment facilities. Test Date/Time Test Type Test Details Facility Name Sep 13, 2024 01:33 PM Consult Order [facility] Cons [facility] Lab Results: +/- 30 days [...] Type Comment Sep 09, 2024 12:16 PM [facility] GLUCOSE-HAND MONITOR CAPILLARY Specimen Type: CAPILLARY Comment: Test performed by: [id number] Meter #: [id number] Ordering Provider: FRANCK TURNER Report Released Date/Time: Sep 09, 2024 12:33 PM Reporting Lab: [address] [address] Performing Lab: [address] [address] GLUCOSE-HAND MONITOR 116 mg/dL H Sep 09, 2024 06:07 AM [facility] GLUCOSE-HAND MONITOR CAPILLARY Specime n Type: CAPILLARY Comment: Test performed by: [id number] Meter #: [id number] Ordering Provider: FRANCK TURNER Report Released Date/Time: Sep 09, 2024 08:17 AM Reporting Lab: [address] [address] Performing Lab: [address] [address] GLUCOSE-HAND MONITOR 112 mg/dL H Sep 08, 2024 09:13 PM [facility] GLUCOSE-HAND MONITOR CAPILLARY Specime n Type: CAPILLARY Comment: Test performed by: [id number] Meter #: [id number] Ordering Provider: FRANCK TURNER Report Released Date/Time: Sep 08, 2024 09:31 PM Reporting Lab: [address] [address] Performing Lab: [address] [address] GLUCOSE-HAND MONITOR 107 mg/dL H Sep 08, 2024 03:49 PM [facility] GLUCOSE-HAND MONITOR CAPILLARY Specime n Type: CAPILLARY Comment: AAMIR RN notified Test performed by: [id number] Meter #: [id number] Ordering Provider: FRANCK TURNER Report Released Date/Time: Sep 08, 2024 04:33 PM Reporting Lab: [address] [address] Performing Lab: [address] [address] GLUCOSE-HAND MONITOR 162 mg/dL H Sep 08, 2024 11:43 AM [facility] GLUCOSE-HAND MONITOR CAPILLARY Specime n Type: CAPILLARY Comment: AAMIR RN notified Test performed by: [id number] Meter #: [id number] Ordering Provider: FRANCK TURNER Report Released Date/Time: Sep 08, 2024 12:03 PM Reporting Lab: [place] [phone] Performing Lab: [address] [address] GLUCOSE-HAND MONITOR 133 mg/dL H Sep 08, 2024 06:13 AM [facility] GLUCOSE-HAND MONITOR CAPILLARY Specime n Type: CAPILLARY Comment: Test performed by: [id number] Meter #: [id number] Ordering Provider: FRANCK TURNER Report Released Date/Time: Sep 08, 2024 06:46 AM Reporting Lab: [place] [phone] Performing Lab: [address] [address] GLUCOSE-HAND MONITOR 104 mg/dL H Sep 07, 2024 07:59 PM [facility] GLUCOSE-HAND MONITOR CAPILLARY Specime n Type: CAPILLARY Comment: Test performed by: [id number] Meter #: [id number] Ordering Provider: FRANCK TURNER Report Released Date/Time: Sep 07, 2024 09:05 PM Reporting Lab: [place] [phone] Performing Lab: [address] [address] GLUCOSE-HAND MONITOR 107 mg/dL H Sep 07, 2024 04:39 PM [facility] GLUCOSE-HAND MONITOR CAPILLARY Specime n Type: CAPILLARY Comment: Test performed by: [id number] Meter #: [id number] Ordering Provider: FRANCK TURNER Report Released Date/Time: Sep 07, 2024 05:09 PM Reporting Lab: [address] [address] Performing Lab: [address] [address] GLUCOSE-HAND MONITOR 105 mg/dL H Sep 07, 2024 11:41 AM [facility] GLUCOSE-HAND MONITOR CAPILLARY Specime n Type: CAPILLARY Comment: Test performed by: [id number] Meter #: [id number] Ordering Provider: FRANCK TURNER Report Released Date/Time: Sep 07, 2024 12:41 PM Reporting Lab: [place] [phone] Performing Lab: [place] [phone] GLUCOSE-HAND MONITOR 144 mg/dL H Sep 07, 2024 05:56 AM [facility] GLUCOSE-HAND MONITOR CAPILLARY Specime n Type: CAPILLARY Comment: Test performed by: [id number] Meter #: [id number] Ordering Provider: FRANCK TURNER Report Released Date/Time: Sep 07, 2024 06:31 AM Reporting Lab: [place] [phone] Performing Lab: [place] [phone] GLUCOSE-HAND MONITOR 96 mg/dL Sep 06, 2024 08:10 PM [facility] GLUCOSE-HAND MONITOR CAPILLARY Specime n Type: CAPILLARY Comment: Test performed by: [id number] Meter #: [id number] Ordering Provider: FRANCK TURNER Report Released Date/Time: Sep 06, 2024 08:52 PM Reporting Lab: [place] [phone] Performing Lab: [place] [phone] GLUCOSE-HAND MONITOR 124 mg/dL H Sep 06, 2024 04:27 PM [facility] GLUCOSE-HAND MONITOR CAPILLARY Specime n Type: CAPILLARY Comment: Test performed by: [id number] Meter #: [id number] Ordering Provider: FRANCK TURNER Report Released Date/Time: Sep 06, 2024 05:15 PM Reporting Lab: [place] [phone] Performing Lab: [place] [phone] GLUCOSE-HAND MONITOR 107 mg/dL H Sep 06, 2024 12:12 PM [facility] GLUCOSE-HAND MONITOR CAPILLARY Specime n Type: CAPILLARY Comment: Test performed by: [id number] Meter #: [id number] Ordering Provider: FRANCK TURNER Report Released Date/Time: Sep 06, 2024 12:29 PM Reporting Lab: [address] [address] Performing Lab: [address] [address] GLUCOSE-HAND MONITOR 181 mg/dL H Sep 06, 2024 06:13 AM [facility] GLUCOSE-HAND MONITOR CAPILLARY Specime n Type: CAPILLARY Comment: Test performed by: [id number] Meter #: [id number] Ordering Provider: FRANCK TURNER Report Released Date/Time: Sep 06, 2024 06:36 AM Reporting Lab: [place] [phone] Performing Lab: [place] [phone] GLUCOSE-HAND MONITOR 102 mg/dL H Sep 05, 2024 08:47 PM [facility] GLUCOSE-HAND MONITOR CAPILLARY Specime n Type: CAPILLARY Comment: Test performed by: [id number] Meter #: [id number] Ordering Provider: FRANCK TURNER Report Released Date/Time: Sep 06, 2024 02:13 AM Reporting Lab: [address] [address] Performing Lab: [address] [address] GLUCOSE-HAND MONITOR 103 mg/dL H Sep 05, 2024 04:40 PM [facility] GLUCOSE-HAND MONITOR CAPILLARY Specime n Type: CAPILLARY Comment: AAMIR RN notified Test performed by: [id number] Meter #: [id number] Ordering Provider: FRANCK TURNER Report Released Date/Time: Sep 05, 2024 05:11 PM Reporting Lab: [address] [address] Performing Lab: [address] [address] GLUCOSE-HAND MONITOR 113 mg/dL H Sep 05, 2024 12:06 PM [facility] GLUCOSE-HAND MONITOR CAPILLARY Specime n Type: CAPILLARY Comment: Test performed by: [id number] Meter #: [id number] Ordering Provider: FRANCK TURNER Report Released Date/Time: Sep 05, 2024 12:23 PM Reporting Lab: [address] [address] Performing Lab: [address] [address] GLUCOSE-HAND MONITOR 115 mg/dL H -Sep 05, 2024 06:26 AM [facility] GLUCOSE-HAND MONITOR CAPILLARY Specime n Type: CAPILLARY Comment: AAMIR Correction Dose Test performed by: [id number] Meter #: [id number] Ordering Provider: FRANCK TURNER Report Released Date/Time: Sep 05, 2024 06:43 AM Reporting Lab: [address] [address] Performing Lab: [address] GLUCOSE-HAND MONITOR 111 mg/dL H Sep 04, 2024 08:59 PM [facility] GLUCOSE-HAND MONITOR CAPILLARY Specime n Type: CAPILLARY Comment: AAMIR RN notified Test performed by: [id number] Meter #: [id number] Ordering Provider: FRANCK TURNER Report Released Date/Time: Sep 04, 2024 09:36 PM Reporting Lab: [address] [address] Performing Lab: [address] [address] GLUCOSE-HAND MONITOR 123 mg/dL H Sep 04, 2024 04:41 PM [facility] GLUCOSE-HAND MONITOR CAPILLARY Specime n Type: CAPILLARY Comment: AAMIR RN notified Test performed by: [id number] Meter #: [id number] Ordering Provider: FRANCK TURNER Report Released Date/Time: Sep 04, 2024 05:03 PM Reporting Lab: [address] [address] Performing Lab: [address] [address] GLUCOSE-HAND MONITOR 118 mg/dL H -Sep 04, 2024 12:36 PM [facility] GLUCOSE-HAND MONITOR CAPILLARY Specime n Type: CAPILLARY Comment: AAMIR RN notified Test performed by: [id number] Meter #: [id number] Ordering Provider: FRANCK TURNER Report Released Date/Time: Sep 04, 2024 12:53 PM Reporting Lab: [place] [phone] Performing Lab: [place] [address] GLUCOSE-HAND MONITOR 129 mg/dL H -Sep 04, 2024 12:03 PM [facility] RESPIRATORY VIRUS PANEL (BIOFIRE) NASOPHARYN X Specimen Type: NASOPHARYNX Comment: ~For Test: RESPIRATORY VIRUS PANEL (BIOFIRE) ~ORDER READ BACK TO: FRANCK TURNER 09/04/24@11:30 Ordering Provider: FRANCK TURNER Report Released Date/Time: Sep 04, 2024 11:33 AM Reporting Lab: [place] [phone] Performing Lab: [place] [phone] ADENOVIRUS (BIOFIRE) Not Detected -Not D etected [...] -Not Detected Sep 04, 2024 06:55 AM [facility] MAGNESIUM PLASMA Specimen Type: PLASM [...] Sep 03, 2024 11:10 AM Reporting Lab: [place] [address] [facility] [address] Performing Lab: [address] [address] MAGNESIUM 1.8 mg/dL 1.6-2.6 Sep 04, 2024 06:55 AM [facility] PANEL 1 PLASMA Specimen Type: [...] Sep 03, 2024 11:10 AM Reporting Lab: [address] [address] Performing Lab: [address] [address] CREATININE 0.75 mg/dL 0.72-1.25 UREA NITROGEN 13 mg/dL 9-25 GLUCOSE 105 mg/dL H 74-100 SODIUM 128 mmol/L L 136-145 POTASSIUM 3.9 mmol/L 3.5-5.1 CHLORIDE 99 mmol/L 98-107 CO2 21 mmol/L L 22-29 CALCIUM 8.0 mg/dL L 8.4-10.2 ANION GAP 8 meq/L 3-19 eGFR (CKD-EPI) >90 Sep 04, 2024 06:02 AM [facility] GLUCOSE-HAND MONITOR CAPILLARY Specime n Type: CAPILLARY Comment: Test performed by: [id number] Meter #: [id number] Ordering Provider: FRANCK TURNER Report Released Date/Time: Sep 04, 2024 06:28 AM Reporting Lab: [address] [address] Performing Lab: [address] [address] GLUCOSE-HAND MONITOR 114 mg/dL H 71-99 Sep 03, 2024 05:19 PM [facility] GLUCOSE-HAND MONITOR CAPILLARY Specime n Type: CAPILLARY Comment: Test performed by: [id number] Meter #: [id number] Ordering Provider: FRANCK TURNER Report Released Date/Time: Sep 03, 2024 05:37 PM Reporting Lab: [address] [address] Performing Lab: [address] [address] GLUCOSE-HAND MONITOR 124 mg/dL H 71-99 Sep 03, 2024 04:41 PM [facility] GLUCOSE-HAND MONITOR CAPILLARY Specime n Type: CAPILLARY Comment: Test performed by: [id number] Meter #: [id number] Ordering Provider: FRANCK TURNER Report Released Date/Time: Sep 03, 2024 06:09 PM Reporting Lab: [address] [address] Performing Lab: [facility] [address] [place] [address] GLUCOSE-HAND MONITOR 112 mg/dL H 71-99 Sep 03, 2024 01:35 PM [facility] URINE LYTES URINE Specimen Type : URINE Comment: ~Altered mental status with no identifiable cause Ordering Provider: FRANCK TURNER Report Released Date/Time: Sep 02, 2024 04:44 PM Reporting Lab: [address] [address] Performing Lab: [address] [address] SODIUM 130 mmol/L POTASSIUM 47.6 mmol/L CHLORIDE 137 mmol/L Sep 03, 2024 01:35 PM [facility] CREATININE URINE Specimen Type: URINE Comment: ~Altered mental status with no identifiable cause Ordering Provider: FRANCK TURNER Report Released Date/Time: Sep 02, 2024 04:44 PM Reporting Lab: [address] [address] Performing Lab: [address] [address] CREATININE 150.9 mg/dL Sep 03, 2024 01:35 PM [facility] UREA NITROGEN URINE Specimen Type : URINE Comment: ~Altered mental status with no identifiable cause Ordering Provider: FRANCK TURNER Report Released Date/Time: Sep 02, 2024 04:44 PM Reporting Lab: [address] [address] Performing Lab: [address] [address] UREA NITROGEN 320 mg/dL Sep 03, 2024 01:35 PM [facility] OSMOLALITY URINE Specimen Type: URINE Comment: ~Altered mental status with no identifiable cause Ordering Provider: FRANCK TURNER Report Released Date/Time: Sep 02, 2024 04:44 PM Reporting Lab: [address] [address] Performing Lab: [address] [address] OSMOLALITY 522 mosm/kg 38-1400 Sep 03, 2024 01:35 PM [facility] URINALYSIS WITH REFLEX TO CULTURE URINE Specimen Type: URINE Comment: ~Altered mental status with no identifiable cause Ordering Provider: FRANCK TURNER Report Released Date/Time: Sep 02, 2024 04:44 PM Reporting Lab: [address] [address] Performing Lab: [address] [address] URINE COLOR Yellow Colorless-Yellow APPEARANCE CLOUDY H [...] H 0-28 Sep 03, 2024 11:58 AM [facility] GLUCOSE-HAND MONITOR CAPILLARY Specime n Type: CAPILLARY Comment: AAMIR RN notified Test performed by: [id number] Meter #: [id number] Ordering Provider: FRANCK TURNER Report Released Date/Time: Sep 03, 2024 12:15 PM Reporting Lab: [address] [address] Performing Lab: [address] [address] GLUCOSE-HAND MONITOR 135 mg/dL H 71-99 Sep 03, 2024 07:09 AM [facility] GLUCOSE-HAND MONITOR CAPILLARY Specime n Type: CAPILLARY Comment: Test performed by: [id number] Meter #: [id number] Ordering Provider: FRANCK TURNER Report Released Date/Time: Sep 03, 2024 07:26 AM Reporting Lab: [address] [address] Performing Lab: [address] [address] GLUCOSE-HAND MONITOR 120 mg/dL H 71-99 Sep 03, 2024 07:05 AM [facility] CBC/PLT BLOOD Specimen Type: BLOOD No comment entered. Ordering Provider: FRANCK TURNER Report Released Date/Time: Sep 02, 2024 04:29 PM Reporting Lab: [place] [address] [facility] [address] Performing Lab: [address] [address] WBC 6.9 10*3/uL 5.0-10.0 RBC 3.48 10*6/uL L 4.6-6.2 HGB 9.5 g/dL L 14.0-18.0 HCT 29.1 L 42.0-52.0 MCV 83.6 fL 80.0-94.0 MCH 27.3 pg 27.0-31.0 MCHC 32.6 g/dL 32.0-36.0 PLT 258 10*3/uL 150-450 MPV 10.3 fL 9.0-13.1 RDW 14.8 11.0-16.0 NRBC 0.0 0.0-0.0 Sep 03, 2024 07:05 AM [facility] MAGNESIUM PLASMA Specimen Type: PLASM [...] Sep 02, 2024 04:29 PM Reporting Lab: [address] [address] Performing Lab: [address] [address] MAGNESIUM 1.7 mg/dL 1.6-2.6 Sep 03, 2024 07:05 AM [facility] PANEL 1 PLASMA Specimen Type: [...] Sep 02, 2024 04:29 PM Reporting Lab: [address] [address] Performing Lab: [address] [address] CREATININE 0.82 mg/dL 0.72-1.25 UREA NITROGEN 12 mg/dL 9-25 GLUCOSE 109 mg/dL H 74-100 SODIUM 129 mmol/L L 136-145 POTASSIUM 4.2 mmol/L 3.5-5.1 CHLORIDE 99 mmol/L 98-107 CO2 21 mmol/L L 22-29 CALCIUM 8.1 mg/dL L 8.4-10.2 ANION GAP 9 meq/L 3-19 eGFR (CKD-EPI) 90 Sep 03, 2024 07:05 AM [facility] GLYCOHEMOGLOBIN BLOOD Specimen Type: BLOOD Comment: Prediabetes: 5.7%-6.4% Diabetes: >= 6.5% [facility] guidelines for A1c interpretation: Glycemic control targets are based on Shared Decision Making between clinicians and patients. Criteria used to establish an A1c target recommendation can be found at https://www.mt.gov/qualityandpatientsafety/ and include the use of result accuracy [...] 8.73 and 9.27. Ref: https://ngsp.org/CAPdata.asp. The in-house ItrybeforeIbuy-Zoobean D-100 analyzer has a historical CV <= 2%. Contact the laboratory for further performance characteristics of this assay. Ordering Provider: FRANCK TURNER Report Released Date/Time: Sep 02, 2024 04:29 PM Reporting Lab: [address] [address] Performing Lab: [address] [address] GLYCOHEMOGLOBIN 5.6 4.4-5.6 Sep 03, 2024 07:05 AM [facility] OSMOLALITY SERUM Specimen Type: SERUM No comment entered. Ordering Provider: FRANCK TURNER Report Released Date/Time: Sep 02, 2024 04:44 PM Reporting Lab: [address] [address] Performing Lab: [address] [address] OSMOLALITY 271 mosm/kg L 280-300 Sep 02, 2024 08:15 PM [facility] GLUCOSE-HAND MONITOR CAPILLARY Specime n Type: CAPILLARY Comment: AAMIR RN notified Test performed by: [id number] Meter #: [id number] Ordering Provider: FRANCK TURNER Report Released Date/Time: Sep 02, 2024 08:57 PM Reporting Lab: [address] [address] Performing Lab: [address] [address] GLUCOSE-HAND MONITOR 126 mg/dL H 71-99 Sep 02, 2024 06:10 PM [facility] MRSA SURVL NARES DNA NARES [...] Sep 02, 2024 05:12 PM Reporting Lab: [address] [address] Performing Lab: [address] [address] MRSA SURVL NARES DNA Negative Negative Sep 02, 2024 05:36 PM [facility] GLUCOSE-HAND MONITOR CAPILLARY Specime n Type: CAPILLARY Comment: Test performed by: [id number] Meter #: [id number] Ordering Provider: FRANCK TURNER Report Released Date/Time: Sep 02, 2024 05:53 PM Reporting Lab: [address] [address] Performing Lab: [address] [address] GLUCOSE-HAND MONITOR 127 mg/dL H 71-99 Aug 29, 2024 10:04 PM [facility] URINALYSIS WITH REFLEX TO CULTURE URINE Specimen Type: URINE Comment: ~For Test: URINALYSIS WITH REFLEX TO CULTURE ~REORDER Ordering Provider: FELISA COLE Report Released Date/Time: Aug 29, 2024 09:36 PM Reporting Lab: [address] [address] Performing Lab: [address] [address] URINE COLOR Yellow Colorless-Yellow APPEARANCE Clear Clear [...] 0-28 Aug 29, 2024 08:32 PM [facility] HIGH SENSITIVITY TROPONIN I PLASMA Specimen [...] I information resource can be reached in [facility] in the Tools menu, under the [...] Aug 29, 2024 07:55 PM Reporting Lab: [address] [address] Performing Lab: [address] [address] HIGH SENSITIVITY TROPONIN I 7 4-35 Aug 29, 2024 08:32 PM [facility] CBC/PLT BLOOD Specimen Type: BLOOD No comment entered. Ordering Provider: FELISA COLE Report Released Date/Time: Aug 29, 2024 07:55 PM Reporting Lab: [address] [address] Performing Lab: [address] [address] WBC 11.2 10*3/uL H 5.0-10.0 RBC 3.97 10*6/uL L 4.6-6.2 HGB 10.9 g/dL L 14.0-18.0 HCT 33.5 L 42.0-52.0 MCV 84.4 fL 80.0-94.0 MCH 27.5 pg 27.0-31.0 MCHC 32.5 g/dL 32.0-36.0 PLT 230 10*3/uL 150-450 MPV 10.2 fL 9.0-13.1 RDW 14.6 11.0-16.0 NRBC 0.0 0.0-0.0 Aug 29, 2024 08:32 PM [facility] PAN[facility] 5 PLASMA Specimen Type: [...] I information resource can be reached in [facility] in the Tools menu, under the [...] Aug 29, 2024 07:55 PM Reporting Lab: [address] [address] Performing Lab: [address] [address] CREATININE 0.85 mg/dL 0.72-1.25 UREA NITROGEN 15 [...] Sep 05, 2024 11:09 PM 0 [place] Sep 05, 2024 08:46 PM 98.0 F 72 /min 145/67 mm[Hg] 18 /min 96 % [facility] Sep 05, 2024 04:39 PM 97.7 F 67 /min 115/63 mm[Hg] 17 /min 94 % 0 [place] Sep 05, 2024 12:47 PM 4 [place] [facility] Sep 05, 2024 12:21 PM 5 [place] Advance Directives: [...] 08, 2024 ADVANCE DIRECTIVE DISCUSSION [facility] Radiology Reports: +/- 30 days of the [...] BRAIN W & W/O: LUIS MANUEL PERDOMO [id number] -1945 M Exm Date: SEP 06, 2024@13:40 Req Phys: FRANCK TURNER Pat Loc: 5-MED/TEL/09-06-2024@19:09 Img Loc: [facility] Service: [place] [address] (Case [id number] COMPLETE) MRI BRAIN W & W/O (MRI Detailed) CPT:37980 Contrast Media : Gadolinium Reason for Study: SEE CLINICAL HISTORY Pharmaceutical: GADOTERIDOL 279.3MG/ML 20ML INJ, 19ml Clinical History: MRI Screening (Required): IMPLANTED DEVICE DOCUMENTATION IMPLANTED DEVICE DOCUMENTATION NOT FOUND Does the have any Cardiac Implants? None Does the Mchenry have any implanted stimulators? None Does the have cochlear implants? No Does the have Cerebral aneurysm clip(s)? I don't know Does the Mchenry have any shrapnel? I don't know If [...] 06, 2024 Date Verified: SEP 06, 2024 Plaster Lather E-Sig: Report: MRI brain without and with [...] Staff: ARCENIO LEYVA, Staff Radiologist Verified by family resource management specialist for ARCENIO LEYVA /ARCENIO AVILA[facility] Sep 06, 2024 01:40 PM MRI C SPINE W & W/ O CONTRAST(FURTHER SEQUENCES): LUIS MANUEL PERDOMO [id number] -1945 M Exm Date: SEP 06, 2024@13:40 Req Phys: FRANCK TURNER Pat Loc: 5-MED/TEL/09-07-2024@06:42 Img Loc: [facility] Service: [place] [address] (Case [id number] COMPLETE) MRI C SPINE W & W/O CONTRAST(FURT(MRI Detailed) CPT:14281 Contrast Media : Gadolinium Reason for Study: [...] the have cochlear implants? No Does the Mchenry have Cerebral aneurysm clip(s)? I don't know Does the have any shrapnel? I don't know If yes, where in your body? Please list other implants not listed above: MRI table has a weight limit of 551 lbs. Mchenry's Weight: *212 lb [96.16 kg] (09/04/2024 05:19) Is this patient claustrophobic?: No REASON FOR EXAM: MULTIPLE SCLEROSIS (indicate suspected or established) PERTINENT PATIENT HISTORY: MS c/f flare Risk factors for GADOLINIUM NEPHROGENIC SYSTEMIC SCLEROSIS: Report Status: Verified Date Reported: SEP 07, 2024 Date Verified: SEP 07, 2024 Plaster Lather E-Sig: Report: EXAMINATION: MRI OF THE CERVICAL [...] Interpreting Staff: HUANG TAI, Radiologist Verified by family resource management specialist for HUANG TAI /HUANG WHEATLEY-[facility] Sep 03, 2024 10:45 AM CHEST SINGLE(1) EW: LUIS MANUEL PERDOMO [id number] -1945 M Exm Date: SEP 03, 2024@10:45 Req Phys: FRANCK TURNER Pat Loc: 5-MED/TEL/09-03-2024@10:56 Img Loc: [facility] RADIOLOGY Service: [place] [address] (Case [id number] COMPLETE)CHEST SINGLE(1) VIEW (RAD Detailed) CPT:73531 Proc Modifiers : PORTABLE EXAM Reason for Study: Eval volume status Clinical History: Report Status: Verified Date Reported: SEP 03, 2024 Date Verified: SEP 03, 2024 Plaster Lather E-Sig: Report: EXAMINATION: SINGLE VIEW CHEST CLINICAL [...] Interpreting Staff: HUANG TAI, Radiologist Verified by family resource management specialist for HUANG TAI /HUANG WHEATLEY-[facility] Aug 29, 2024 08:[address] HEAD W/O CONT: LUIS MANUEL PERDOMO FABIAN [id number] -1945 M Exm Date: AUG 29, 2024@20:28 Req Phys: FELISA COLE Loc: ED/4P-12A (Req'g Loc) Img Loc: CT SCAN Service: Unknown [place] [id number] (Case [id number] COMPLETE) CT HEAD W/O CONT (CT Detailed) CPT:05187 Reason for Study: SEE CLINICAL HISTORY Clinical History: REASON FOR SEND OUT: ATTENDING PHYSICIAN NAME: New transient neurological s/s - suspected TIA HISTORY/REASON FOR EXAM: confusion Report Status: Verified Date Reported: AUG 29, 2024 Date Verified: AUG 29, 2024 Plaster Lather E-Sig: Report: HISTORY confusion COMPARISON No prior [...] Staff: ABDIRAHMAN CROW, Staff Physician Verified by family resource management specialist for ABDIRAHMAN CROW /ABDIRAHMAN ROJAS-[facility] Pathology Reports: +/- 30 days of [...] comes from all [place] treatment facilities. Date/Time Pathology Report Provider Source Sep 03, 2024 01:35 PM LR MICROBIOLOGY RE PORT: Reporting Lab: [facility] [CLIA# [id number]] [address] [place] [id number] Accession [UID]: [id number] [[id number]] Received: Sep 03, 2024@14:02 Collection sample: URINE, [...] Performed By: [facility] [CLIA# [id number]] [address] [place] [id number] MAGDY CALABRESE [facility] Sep 02, 2024 06:00 PM LR MICROBIOLOGY RE PORT: Reporting Lab: [facility] [IA# [id number]] [address] [place] [address] Accession [UID]: [id number] [[id number]] Received: Sep 02, 2024@18:07 Collection sample: BLD CULTURE BOTTLES Collection date: Sep 02, 2024 18:00 Site/Specimen: BLOOD Provider: FRANCK TURNER Comment on specimen: L HAND Test(s) ordered: CULTURE, BLOOD................ completed: Sep 08, 2024 * BACTERIOLOGY FINAL REPORT => Sep 08, 2024 08:25 TECH CODE: [id number] Bacteriology Remark(s): Blood culture status=NO GROWTH (unless notified otherwise) 09/03/2024 AEROBIC: NO GROWTH ANAEROBIC: NO GROWTH =--=--=--=--=--=--=--=--=--=-- =--=--=--=--=--=--=--=--=--=-- =--=--=--=--=--=-- Performing Laboratory: Bacteriology Report Performed By: [facility] [CLIA# [id number]] [address] [place] [address] MAGDY CALABRESE [facility] Aug 29, 2024 10:18 PM LR MICROBIOLOGY RE PORT: Reporting Lab: [facility] [CLIA# [id number]] [address] [place] [address] Accession [UID]: [id number] [[id number]] Received: Aug 29, 2024@22:18 Collection sample: URINE, CLEAN CATCH Collection date: Aug 29, 2024 22:18 Site/Specimen: URINE Provider: FELISA COLE Test(s) ordered: CULTURE, URINE................ completed: Aug 31, 2024 09:51 * BACTERIOLOGY FINAL REPORT => Aug 31, 2024 09:51 TECH CODE: [id number] Bacteriology Remark(s): NO GROWTH 08/30/2024 <10,000 CFU/ML. 08/31/2024 =--=--=--=--=--=--=--=--=--=-- =--=--=--=--=--=--=--=--=--=-- =--=--=--=--=--=-- Performing Laboratory: Bacteriology Report Performed By: [facility] [IA# [id number]] [address] [place] [address] MAGDY CALABRESE-[facility]
--- OUTSIDE RECORDS SUMMARY | 2024-09-05 10:23 | XMS_ITS ---
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 Name Role Phone YULISSA HENDERSON Primary [...] PLAN F Mar 24, 2014 PLAN F [id number] [phone] LUIS MANUEL PERDOMO PATIENT [facility] [place] [facility] PREFERRED PROVIDER ORGANIZAT ION (PPO) [facility] Sep 21, 2012 [id number] LUIS MANUEL PERDOMO PATIENT [employer] ([id number]) PRESCRIPT ION WL3A Sep 21, 2012 [id number] [phone] LUIS MANUEL PERDOMO PATIENT MEDICARE (WNR) MEDICARE (M) PART B Sep 21, 2012 PART B [id number] NOEMI PERDOMO PATIENT MEDICARE (WNR) MEDICARE (M) PART A Jan 22, 2011 PART A [id number] LEANNE, NOEMI PATIENT MEDICARE PART D (WNR) MEDICARE (M) PART D Mar 24, 2014 PART D [id number] LUIS MANUEL PERDOMO PATIENT Selected Encounter This section includes the information on record at PA for the Encounter. Date/Time Encounter Type Encounter Description Reason Pro vider Source Sep 05, 2024 02:23 PM Inpatient Visit DAILY HOSPITALIZATION DATA [facility] Encounter Template Text not used by PA Plan of Treatment: Future Appointments (+ 6 months) and Future Tests (+/- 45 days) The Plan of Treatment section includes future care activities for the [facility] This section includes future appointments [...] 2024 08:00 AM AMBULATORY - NONE [facility] Sep 30, 2024 01:30 PM [facility] Active, Pending, and Scheduled Orders This section includes a listing of several types of active, pending, and scheduled orders, including clinic medications orders, diagnostic test orders, procedure orders and consult orders; where the start date of the order is 45 days before the date of the Encounter or 45 days after the date of theEncounter. The data comes from all [facility] facilities. Test Date/Time Test Type Test Details Facility Name Sep 13, 2024 01:33 PM Consult Order [facility] Cons Director Of Music's Choice [facility] Lab Results: +/- [...] Specimen Type: CAPILLARY Comment: Test performed by: [id number] Meter #: [id number] Ordering Provider: FRANCK TURNER Report Released Date/Time: Sep 09, 2024 12:33 PM Reporting Lab: [address] [address] Performing Lab: [address] [address] GLUCOSE-HAND MONITOR 116 mg/dL H Sep 09, 2024 06:07 AM [facility] GLUCOSE-HAND MONITOR CAPILLARY Specime n Type: CAPILLARY Comment: Test performed by: [id number] Meter #: [id number] Ordering Provider: FRANCK TURNER Report Released Date/Time: Sep 09, 2024 08:17 AM Reporting Lab: [address] [address] Performing Lab: [address] [address] GLUCOSE-HAND MONITOR 112 mg/dL H Sep 08, 2024 09:13 PM [facility] GLUCOSE-HAND MONITOR CAPILLARY Specime n Type: CAPILLARY Comment: Test performed by: [id number] Meter #: [id number] Ordering Provider: FRANCK TURNER Report Released Date/Time: Sep 08, 2024 09:31 PM Reporting Lab: [address] [address] Performing Lab: [address] [address] GLUCOSE-HAND MONITOR 107 mg/dL H Sep 08, 2024 03:49 PM [facility] GLUCOSE-HAND MONITOR CAPILLARY Specime n Type: CAPILLARY Comment: AAMIR RN notified Test performed by: [id number] Meter #: [id number] Ordering Provider: FRANCK TURNER Report Released Date/Time: Sep 08, 2024 04:33 PM Reporting Lab: [address] [address] Performing Lab: [address] [address] GLUCOSE-HAND MONITOR 162 mg/dL H Sep 08, 2024 11:43 AM [facility] GLUCOSE-HAND MONITOR CAPILLARY Specime n Type: CAPILLARY Comment: AAMIR RN notified Test performed by: [id number] Meter #: [id number] Ordering Provider: FRANCK TURNER Report Released Date/Time: Sep 08, 2024 12:03 PM Reporting Lab: [address] [address] Performing Lab: [address] [address] GLUCOSE-HAND MONITOR 133 mg/dL H Sep 08, 2024 06:13 AM [facility] GLUCOSE-HAND MONITOR CAPILLARY Specime n Type: CAPILLARY Comment: Test performed by: [id number] Meter #: [id number] Ordering Provider: FRANCK TURNER Report Released Date/Time: Sep 08, 2024 06:46 AM Reporting Lab: [address] [address] Performing Lab: [address] [address] GLUCOSE-HAND MONITOR 104 mg/dL H Sep 07, 2024 07:59 PM [facility] GLUCOSE-HAND MONITOR CAPILLARY Specime n Type: CAPILLARY Comment: Test performed by: [id number] Meter #: [id number] Ordering Provider: FRANCK TURNER Report Released Date/Time: Sep 07, 2024 09:05 PM Reporting Lab: [address] [address] Performing Lab: [address] [address] GLUCOSE-HAND MONITOR 107 mg/dL H Sep 07, 2024 04:39 PM [facility] GLUCOSE-HAND MONITOR CAPILLARY Specime n Type: CAPILLARY Comment: Test performed by: [id number] Meter #: [id number] Ordering Provider: FRANCK TURNER Report Released Date/Time: Sep 07, 2024 05:09 PM Reporting Lab: [address] [address] Performing Lab: [address] [address] GLUCOSE-HAND MONITOR 105 mg/dL H Sep 07, 2024 11:41 AM [facility] GLUCOSE-HAND MONITOR CAPILLARY Specime n Type: CAPILLARY Comment: Test performed by: [id number] Meter #: [id number] Ordering Provider: FRANCK TURNER Report Released Date/Time: Sep 07, 2024 12:41 PM Reporting Lab: [address] [address] Performing Lab: [address] [address] GLUCOSE-HAND MONITOR 144 mg/dL H Sep 07, 2024 05:56 AM [facility] GLUCOSE-HAND MONITOR CAPILLARY Specime n Type: CAPILLARY Comment: Test performed by: [id number] Meter #: [id number] Ordering Provider: FRANCK TURNER Report Released Date/Time: Sep 07, 2024 06:31 AM Reporting Lab: [address] [address] Performing Lab: [address] [address] GLUCOSE-HAND MONITOR 96 mg/dL Sep 06, 2024 08:10 PM [facility] GLUCOSE-HAND MONITOR CAPILLARY Specime n Type: CAPILLARY Comment: Test performed by: [id number] Meter #: [id number] Ordering Provider: FRANCK TURNER Report Released Date/Time: Sep 06, 2024 08:52 PM Reporting Lab: [address] [address] Performing Lab: [address] [address] GLUCOSE-HAND MONITOR 124 mg/dL H Sep 06, 2024 04:27 PM [facility] GLUCOSE-HAND MONITOR CAPILLARY Specime n Type: CAPILLARY Comment: Test performed by: [id number] Meter #: [id number] Ordering Provider: FRANCK TURNER Report Released Date/Time: Sep 06, 2024 05:15 PM Reporting Lab: [address] [address] Performing Lab: [address] [address] GLUCOSE-HAND MONITOR 107 mg/dL H Sep 06, 2024 12:12 PM [facility] GLUCOSE-HAND MONITOR CAPILLARY Specime n Type: CAPILLARY Comment: Test performed by: [id number] Meter #: [id number] Ordering Provider: FRANCK TURNER Report Released Date/Time: Sep 06, 2024 12:29 PM Reporting Lab: [address] [address] Performing Lab: [address] [address] GLUCOSE-HAND MONITOR 181 mg/dL H -Sep 06, 2024 06:13 AM [facility] GLUCOSE-HAND MONITOR CAPILLARY Specime n Type: CAPILLARY Comment: Test performed by: [id number] Meter #: [id number] Ordering Provider: FRANCK TURNER Report Released Date/Time: Sep 06, 2024 06:36 AM Reporting Lab: [address] [address] Performing Lab: [address] [address] GLUCOSE-HAND MONITOR 102 mg/dL H Sep 05, 2024 08:47 PM [facility] GLUCOSE-HAND MONITOR CAPILLARY Specime n Type: CAPILLARY Comment: Test performed by: [id number] Meter #: [id number] Ordering Provider: FRANCK TURNER Report Released Date/Time: Sep 06, 2024 02:13 AM Reporting Lab: [address] [address] Performing Lab: [address] [address] GLUCOSE-HAND MONITOR 103 mg/dL H Sep 05, 2024 04:40 PM [facility] GLUCOSE-HAND MONITOR CAPILLARY Specime n Type: CAPILLARY Comment: AAMIR RN notified Test performed by: [id number] Meter #: [id number] Ordering Provider: FRANCK TURNER Report Released Date/Time: Sep 05, 2024 05:11 PM Reporting Lab: [address] [address] Performing Lab: [address] [address] GLUCOSE-HAND MONITOR 113 mg/dL H Sep 05, 2024 12:06 PM [facility] GLUCOSE-HAND MONITOR CAPILLARY Specime n Type: CAPILLARY Comment: Test performed by: [id number] Meter #: [id number] Ordering Provider: FRANCK TURNER Report Released Date/Time: Sep 05, 2024 12:23 PM Reporting Lab: [address] [address] Performing Lab: [address] [address] GLUCOSE-HAND MONITOR 115 mg/dL H Sep 05, 2024 06:26 AM [facility] GLUCOSE-HAND MONITOR CAPILLARY Specime n Type: CAPILLARY Comment: AAMIR Correction Dose Test performed by: [id number] Meter #: [id number] Ordering Provider: FRANCK TURNER Report Released Date/Time: Sep 05, 2024 06:43 AM Reporting Lab: [address] [address] Performing Lab: [address] [address] GLUCOSE-HAND MONITOR 111 mg/dL H Sep 04, 2024 08:59 PM [facility] GLUCOSE-HAND MONITOR CAPILLARY Specime n Type: CAPILLARY Comment: AAMIR RN notified Test performed by: [id number] Meter #: [id number] Ordering Provider: FRANCK TURNER Report Released Date/Time: Sep 04, 2024 09:36 PM Reporting Lab: [address] [address] Performing Lab: [address] [address] GLUCOSE-HAND MONITOR 123 mg/dL H Sep 04, 2024 04:41 PM [facility] GLUCOSE-HAND MONITOR CAPILLARY Specime n Type: CAPILLARY Comment: AAMIR RN notified Test performed by: [id number] Meter #: [id number] Ordering Provider: FRANCK TURNER Report Released Date/Time: Sep 04, 2024 05:03 PM Reporting Lab: [address] [address] Performing Lab: [address] [address] GLUCOSE-HAND MONITOR 118 mg/dL H Sep 04, 2024 12:36 PM [facility] GLUCOSE-HAND MONITOR CAPILLARY Specime n Type: CAPILLARY Comment: AAMIR RN notified Test performed by: [id number] Meter #: [id number] Ordering Provider: FRANCK TURNER Report Released Date/Time: Sep 04, 2024 12:53 PM Reporting Lab: [address] [address] Performing Lab: [place] [address] GLUCOSE-HAND MONITOR 129 mg/dL H 71-99 Sep 04, 2024 12:03 PM [facility] RESPIRATORY VIRUS PANEL (BIOFIRE) NASOPHARYN X Specimen Type: NASOPHARYNX Comment: ~For Test: RESPIRATORY VIRUS PANEL (BIOFIRE) ~ORDER READ BACK TO: FRANCK TURNER 09/04/24@11:30 Ordering Provider: FRANCK TURNER Report Released Date/Time: Sep 04, 2024 11:33 AM Reporting Lab: [place] [id number] Performing Lab: [place] [id number] ADENOVIRUS (BIOFIRE) Not Detected -Not D etected [...] 2024 11:10 AM Reporting Lab: [place] [facility] [address] [facility] [address] Performing Lab: [place] [id number] [facility] [address] MAGNESIUM 1.8 mg/dL 1.6-2.6 Sep 04, 2024 [...] Sep 03, 2024 11:10 AM Reporting Lab: [address] [address] Performing Lab: [address] CREATININE 0.75 mg/dL 0.72-1.25 UREA NITROGEN [...] n Type: CAPILLARY Comment: Test performed by: [id number] Meter #: [id number] Ordering Provider: FRANCK TURNER Report Released Date/Time: Sep 04, 2024 06:28 AM Reporting Lab: [address] Performing Lab: [address] GLUCOSE-HAND MONITOR 114 mg/dL H 71-99 Sep 03, 2024 05:19 PM [facility] GLUCOSE-HAND MONITOR CAPILLARY Specime n Type: CAPILLARY Comment: Test performed by: [id number] Meter #: [id number] Ordering Provider: FRANCK TURNER Report Released Date/Time: Sep 03, 2024 05:37 PM Reporting Lab: [address] Performing Lab: [address] [address] GLUCOSE-HAND MONITOR 124 mg/dL H 71-99 Sep 03, 2024 04:41 PM [facility] GLUCOSE-HAND MONITOR CAPILLARY Specime n Type: CAPILLARY Comment: Test performed by: [id number] Meter #: [id number] Ordering Provider: FRANCK TURNER Report Released Date/Time: Sep 03, 2024 06:09 PM Reporting Lab: [address] [address] Performing Lab: [address] [address] GLUCOSE-HAND MONITOR 112 mg/dL H 71-99 Sep 03, 2024 01:35 PM [facility] URINE LYTES URINE Specimen Type : URINE Comment: ~Altered mental status with no identifiable cause Ordering Provider: FRANCK TURNER Report Released Date/Time: Sep 02, 2024 04:44 PM Reporting Lab: [address] [address] Performing Lab: [address] [address] SODIUM 130 mmol/L POTASSIUM 47.6 mmol/L CHLORIDE 137 mmol/L Sep 03, 2024 01:35 PM [facility] CREATININE URINE Specimen Type: URINE Comment: ~Altered mental status with no identifiable cause Ordering Provider: FRANCK TURNER Report Released Date/Time: Sep 02, 2024 04:44 PM Reporting Lab: [address] [address] Performing Lab: [address] [address] CREATININE 150.9 mg/dL Sep 03, 2024 01:35 PM [facility] UREA NITROGEN URINE Specimen Type : URINE Comment: ~Altered mental status with no identifiable cause Ordering Provider: FRANCK TURNER Report Released Date/Time: Sep 02, 2024 04:44 PM Reporting Lab: [address] [address] Performing Lab: [address] [address] UREA NITROGEN 320 mg/dL Sep 03, 2024 01:35 PM [facility] OSMOLALITY URINE Specimen Type: URINE Comment: ~Altered mental status with no identifiable cause Ordering Provider: FRANCK TURNER Report Released Date/Time: Sep 02, 2024 04:44 PM Reporting Lab: [address] [address] Performing Lab: [address] [address] OSMOLALITY 522 mosm/kg 38-1400 Sep 03, 2024 01:35 PM [facility] URINALYSIS WITH REFLEX TO CULTURE URINE Specimen Type: URINE Comment: ~Altered mental status with no identifiable cause Ordering Provider: FRANCK TURNER Report Released Date/Time: Sep 02, 2024 04:44 PM Reporting Lab: [address] [address] Performing Lab: [address] [address] URINE COLOR Yellow Colorless-Yellow APPEARANCE CLOUDY H [...] H 0-28 Sep 03, 2024 11:58 AM [facility] GLUCOSE-HAND MONITOR CAPILLARY Specime n Type: CAPILLARY Comment: AAMIR RN notified Test performed by: [id number] Meter #: [id number] Ordering Provider: FRANCK TURNER Report Released Date/Time: Sep 03, 2024 12:15 PM Reporting Lab: [address] [address] Performing Lab: [address] [address] GLUCOSE-HAND MONITOR 135 mg/dL H Sep 03, 2024 07:09 AM [facility] GLUCOSE-HAND MONITOR CAPILLARY Specime n Type: CAPILLARY Comment: Test performed by: [id number] Meter #: [id number] Ordering Provider: FRANCK TURNER Report Released Date/Time: Sep 03, 2024 07:26 AM Reporting Lab: [address] [address] Performing Lab: [address] [address] GLUCOSE-HAND MONITOR 120 mg/dL H -Sep 03, 2024 07:05 AM [facility] CBC/PLT BLOOD Specimen Type: BLOOD No comment entered. Ordering Provider: FRANCK TURNER Report Released Date/Time: Sep 02, 2024 04:29 PM Reporting Lab: [address] [address] Performing Lab: [address] [address] WBC 6.9 10*3/uL 5.0-10.0 RBC 3.48 10*6/uL [...] 02, 2024 04:29 PM Reporting Lab: [address] [address] Performing Lab: [address] [address] MAGNESIUM 1.7 mg/dL 1.6-2.6 Sep 03, 2024 [...] 02, 2024 04:29 PM Reporting Lab: [address] [address] Performing Lab: [address] [address] CREATININE 0.82 mg/dL 0.72-1.25 UREA NITROGEN 12 [...] BLOOD Comment: Prediabetes: 5.7%-6.4% Diabetes: >= 6.5% [facility] guidelines for A1c interpretation: Glycemic control targets are based on Shared Decision Making between clinicians and patients. Criteria used to establish an A1c target recommendation can be found at https://www.sd.gov/qualityandpatientsafety/ and include the use of result accuracy [...] 8.73 and 9.27. Ref: https://ngsp.org/CAPdata.asp. The in-house [employer] D-100 analyzer has a historical CV <= 2%. Contact the laboratory for further performance characteristics of this assay. Ordering Provider: FRANCK TURNER Report Released Date/Time: Sep 02, 2024 04:29 PM Reporting Lab: [address] [address] Performing Lab: [place] [id number] GLYCOHEMOGLOBIN 5.6 4.4-5.6 Sep 03, 2024 07:05 AM [facility] OSMOLALITY SERUM Specimen Type: SERUM No comment entered. Ordering Provider: FRANCK TURNER Report Released Date/Time: Sep 02, 2024 04:44 PM Reporting Lab: [address] [address] Performing Lab: [address] [address] OSMOLALITY 271 mosm/kg L 280-300 Sep 02, 2024 08:15 PM [facility] GLUCOSE-HAND MONITOR CAPILLARY Specime n Type: CAPILLARY Comment: AAMIR DEXTER notified Test performed by: [id number] Meter #: [id number] Ordering Provider: FRANCK TURNER Report Released Date/Time: Sep 02, 2024 08:57 PM Reporting Lab: [address] [address] Performing Lab: [address] [address] GLUCOSE-HAND MONITOR 126 mg/dL H 71-99 Sep [...] 02, 2024 05:12 PM Reporting Lab: [address] [address] Performing Lab: [address] [address] MRSA SURVL NARES DNA Negative Negative Sep 02, 2024 05:36 PM [facility] GLUCOSE-HAND MONITOR CAPILLARY Specime n Type: CAPILLARY Comment: Test performed by: [id number] Meter #: [id number] Ordering Provider: FRANCK TURNER Report Released Date/Time: Sep 02, 2024 05:53 PM Reporting Lab: [address] [address] Performing Lab: [address] [address] GLUCOSE-HAND MONITOR 127 mg/dL H 71-99 Aug 29, 2024 10:04 PM [facility] URINALYSIS WITH REFLEX TO CULTURE URINE Specimen Type: URINE Comment: ~For Test: URINALYSIS WITH REFLEX TO CULTURE ~REORDER Ordering Provider: FELISA COLE Report Released Date/Time: Aug 29, 2024 09:36 PM Reporting Lab: [address] [address] Performing Lab: [address] [address] URINE COLOR Yellow Colorless-Yellow APPEARANCE Clear Clear [...] /[LPF] 0-28 Aug 29, 2024 08:32 PM [facility] HIGH SENSITIVITY TROPONIN I PLASMA Specimen [...] <15 G5 Kidney failure Ordering Provider: FELISA COEL Report Released Date/Time: Aug 29, 2024 07:55 PM Reporting Lab: [address] [address] Performing Lab: [address] [address] HIGH SENSITIVITY TROPONIN I 7 4-35 Aug 29, 2024 08:32 PM [facility] CBC/PLT BLOOD Specimen Type: BLOOD No comment entered. Ordering Provider: FELISA COLE Report Released Date/Time: Aug 29, 2024 07:55 PM Reporting Lab: [address] [address] Performing Lab: [address] [address] WBC 11.2 10*3/uL H 5.0-10.0 RBC 3.97 10*6/uL L 4.6-6.2 HGB 10.9 g/dL L 14.0-18.0 HCT 33.5 L 42.0-52.0 MCV 84.4 fL 80.0-94.0 MCH 27.5 pg 27.0-31.0 MCHC 32.5 g/dL 32.0-36.0 PLT 230 10*3/uL 150-450 MPV 10.2 fL 9.0-13.1 RDW 14.6 11.0-16.0 NRBC 0.0 0.0-0.0 Aug 29, 2024 08:32 PM [facility] PANEL 5 PLASMA Specimen Type: PLASM [...] 29, 2024 07:55 PM Reporting Lab: [address] [address] Performing Lab: [address] [address] CREATININE 0.85 mg/dL 0.72-1.25 UREA NITROGEN 15 [...] 05, 2024 11:09 PM 0 [place] [facility] Sep 05, 2024 08:46 PM 98.0 F 72 /min 145/67 mm[Hg] 18 /min 96 % [facility] Sep 05, 2024 04:39 PM 97.7 F 67 /min 115/63 mm[Hg] 17 /min 94 % 0 [place] Sep 05, 2024 12:47 PM 4 [place] Sep 05, 2024 12:21 PM 5 [place] [facility] Advance Directives: All historical and current [...] 08, 2024 ADVANCE DIRECTIVE DISCUSSION [facility] Radiology Reports: +/- 30 days [...] BRAIN W & W/O: LUIS MANUEL PERDOMO [id number] -1945 M Exm Date: SEP 06, 2024@13:40 Req Phys: FRANCK TURNER Loc: 5-MED/TEL/09-06-2024@19:09 Img Loc: [facility] Service: [place] [address] (Case [id number] COMPLETE) MRI BRAIN W & W/O (MRI Detailed) CPT:21509 Contrast Media : Gadolinium Reason for Study: SEE CLINICAL HISTORY Pharmaceutical: GADOTERIDOL 279.3MG/ML 20ML INJ, 19ml Clinical History: MRI Screening (Required): IMPLANTED DEVICE DOCUMENTATION IMPLANTED DEVICE DOCUMENTATION NOT FOUND Does the [place] have any Cardiac Implants? None Does the have any implanted stimulators? None Does the have cochlear implants? No Does the [place] have Cerebral aneurysm clip(s)? I don't know Does the have any shrapnel? I don't know If yes, where in your body? Please list other implants not listed above: MRI table has a weight limit of 551 lbs. [place]'s Weight: *212 lb [96.16 kg] (09/04/2024 05:19) Is this patient claustrophobic?: No REASON FOR EXAM:MULTIPLE SCLEROSIS (indicate suspected or established) PERTINENT PATIENT HISTORY: MS c/f for flare Risk factors for GADOLINIUM NEPHROGENIC SYSTEMIC SCLEROSIS: Report Status: Verified Date Reported: SEP 06, 2024 Date Verified: SEP 06, 2024 Universal Grinder Tool E-Sig: Report: MRI brain without and with [...] Staff: ARCENIO LEYVA, Staff Radiologist Verified by veterinary science teacher for ARCENIO LEYVA /ARCENIO AVILA-[facility] Sep 06, 2024 01:40 PM MRI C SPINE W & W/ O CONTRAST(FURTHER SEQUENCES): LUIS MANUEL PERDOMO [id number] -1945 M Exm Date: SEP 06, 2024@13:40 Req Phys: FRANCK TURNERSav Cuevas Loc: 5-MED/TEL/09-07-2024@06:42 Img Loc: [facility] Service: MEDICAL SERVICE [place] [id number] (Case [id number] COMPLETE) MRI C SPINE W & W/O CONTRAST(FURT(MRI Detailed) CPT:35509 Contrast Media : Gadolinium Reason for Study: SEE CLINICAL HISTORY Pharmaceutical: GADOTERIDOL 279.3MG/ML 20ML INJ, 19ml Clinical History: STATUS OF PLAIN FILMS:Not performed (Provide justification for MR W/O prior plain films below.) MRI for MS MRI Screening (Required): IMPLANTED DEVICE DOCUMENTATION IMPLANTED DEVICE DOCUMENTATION NOT FOUND Does the [place] have any Cardiac Implants? None Does the [place] have any implanted stimulators? None Does the have cochlear implants? No Does the have Cerebral aneurysm clip(s)? I don't know Does the [place] have any shrapnel? I don't know If yes, where in your body? Please list other implants not listed above: MRI table has a weight limit of 551 lbs. [place]'s Weight: *212 lb [96.16 kg] (09/04/2024 05:19) Is this patient claustrophobic?: No REASON FOR EXAM: MULTIPLE SCLEROSIS (indicate suspected or established) PERTINENT PATIENT HISTORY: MS c/f flare Risk factors for GADOLINIUM NEPHROGENIC SYSTEMIC SCLEROSIS: Report Status: Verified Date Reported: SEP 07, 2024 Date Verified: SEP 07, 2024 Universal Grinder Tool E-Sig: Report: EXAMINATION: MRI OF THE CERVICAL [...] Interpreting Staff: HUANG TAI, Radiologist Verified by veterinary science teacher for HUANG TAI /HUANG WHEATLEY-Sav [facility] Sep 03, 2024 10:45 AM CHEST SINGLE(1) EW: LUIS MANUEL PERDOMO [id number] -1945 M Exm Date: SEP 03, 2024@10:45 Req Phys: FRANCK TURNER Pat Loc: 5-MED/TEL/09-03-2024@10:56 Img Loc: [facility] Service: [place] [address] (Case [id number] COMPLETE)CHEST SINGLE(1) VIEW (RAD Detailed) CPT:51751 Proc Modifiers : PORTABLE EXAM Reason for Study: Eval volume status Clinical History: Report Status: Verified Date Reported: SEP 03, 2024 Date Verified: SEP 03, 2024 Universal Grinder Tool E-Sig: Report: EXAMINATION: SINGLE VIEW CHEST CLINICAL [...] Interpreting Staff: HUANG TAI, Radiologist Verified by veterinary science teacher for HUANG TAI /HUANG WHEATLEY-Sav [facility] Aug 29, 2024 08:[address] HEAD W/O CONT: LUIS MANUEL PERDOMO [id number] -1945 M Exm Date: AUG 29, 2024@20:28 Req Phys: FELISA COLE Loc: ED/4P-12A (Req'g Loc) Img Loc: CT SCAN Service: [place] [address] (Case [id number] COMPLETE) CT HEAD W/O CONT (CT Detailed) CPT:47404 Reason for Study: SEE CLINICAL HISTORY Clinical History: REASON FOR SEND OUT: ATTENDING PHYSICIAN NAME: New transient neurological s/s - suspected TIA HISTORY/REASON FOR EXAM: confusion Report Status: Verified Date Reported: AUG 29, 2024 Date Verified: AUG 29, 2024 Universal Grinder Tool E-Sig: Report: HISTORY confusion COMPARISON No prior [...] Staff: ABDIRAHMAN CROW, Staff Physician Verified by veterinary science teacher for ABDIRAHMAN CROW /[facility] Pathology Reports: +/- 30 days [...] PORT: Reporting Lab: [facility] [CLIA# [id number]] [address] [place] [id number] Accession [UID]: [id number] [[id number]] Received: Sep 03, 2024@14:02 Collection sample: URINE, [...] Report Performed By: [facility] [CLIA# [id number]] [address] [place] [id number] [facility] Sep 02, 2024 06:00 PM LR MICROBIOLOGY RE PORT: Reporting Lab: [facility] [CLIA# [id number]] 29 [address] [place], [place] [id number] Accession [UID]: [id number] [[id number]] Received: Sep 02, 2024@18:07 Collection sample: BLD CULTURE BOTTLES Collection date: Sep 02, 2024 18:00 Site/Specimen: BLOOD Provider: FRANCK TURNER Comment on specimen: L HAND Test(s) ordered: CULTURE, BLOOD................ completed: Sep 08, 2024 * BACTERIOLOGY FINAL REPORT => Sep 08, 2024 08:25 TECH CODE: [id number] Bacteriology Remark(s): Blood culture status=NO GROWTH (unless notified otherwise) 09/03/2024 AEROBIC: NO GROWTH ANAEROBIC: NO GROWTH =--=--=--=--=--=--=--=--=--=-- =--=--=--=--=--=--=--=--=--=-- =--=--=--=--=--=-- Performing Laboratory: Bacteriology Report Performed By: [facility] [CLIA# [id number]] [address] [place], [place] [id number] [facility] Aug 29, 2024 10:18 PM LR MICROBIOLOGY RE PORT: Reporting Lab: [facility] [CLIA# [id number]] [address] [place], [place] [id number] Accession [UID]: [id number] [[id number]] Received: Aug 29, 2024@22:18 Collection sample: URINE, CLEAN CATCH Collection date: Aug 29, 2024 22:18 Site/Specimen: URINE Provider: FELISA COLE Test(s) ordered: CULTURE, URINE................ completed: Aug 31, 2024 09:51 * BACTERIOLOGY FINAL REPORT => Aug 31, 2024 09:51 TECH CODE: [id number] Bacteriology Remark(s): NO GROWTH 08/30/2024 <10,000 CFU/ML. 08/31/2024 =--=--=--=--=--=--=--=--=--=-- =--=--=--=--=--=--=--=--=--=-- =--=--=--=--=--=-- Performing Laboratory: Bacteriology Report Performed By: [facility] [IA# [id number]] [address] [place] [address] [facility]
--- OUTSIDE RECORDS SUMMARY | 2024-09-05 10:23 | XMS_ITS | Encounter Summary ---
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 Name Role Phone YULISSA HENDERSON Primary Care [...] PLAN F Mar 24, 2014 PLAN F [id number] [phone] LUIS MANUEL PERDOMO PATIENT [facility] [place] BLUECARD PREFERRED PROVIDER ORGANIZAT ION (PPO) [facility] SLE Sep 21, 2012 [id number] LUIS MANUEL PERDOMO PATIENT [employer] ([id number]) PRESCRIPT ION WL3A Sep 21, 2012 [id number] [phone] LUIS MANUEL PERDOMO PATIENT MEDICARE (WNR) MEDICARE (M) PART B Sep 21, 2012 PART B [id number] [phone] NOEMI PERDOMO PATIENT MEDICARE (WNR) MEDICARE (M) PART A Jan 22, 2011 PART A [id number] [phone] NOEMI PERDOMO PATIENT MEDICARE PART D (WNR) MEDICARE (M) PART D Mar 24, 2014 PART D [id number] LUIS MANUEL PERDOMO PATIENT Selected Encounter This section includes the information on record at [place] for the Encounter. Date/Time Encounter Type Encounter Description Reason Pro vider Source Sep 05, 2024 02:23 PM Inpatient Visit EVENT (HISTORICAL) IHE Encounter Template Text not used by [place] Plan of Treatment: Future Appointments (+ 6 [...] 08:00 AM AMBULATORY - NONE [place] [facility] Sep 30, 2024 01:30 PM AMBULATORY - SURGERY [place] [facility] Active, Pending, and Scheduled Orders This section includes a listing of several types of active, pending, and scheduled orders, including clinic medications orders, diagnostic test orders, procedure orders and consult orders; where the start date of the order is 45 days before the date of the Encounter or 45 days after the date of theEncounter. The data comes from all [facility] facilities. 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 [facility] Lab Results: +/- 30 days of the [...] Specimen Type: CAPILLARY Comment: Test performed by: [id number] Meter #: [id number] Ordering Provider: FRANCK TURNER Report Released Date/Time: Sep 09, 2024 12:33 PM Reporting Lab: [address] [address] Performing Lab: [address] [address] GLUCOSE-HAND MONITOR 116 mg/dL H Sep 09, 2024 06:07 AM [facility] GLUCOSE-HAND MONITOR CAPILLARY Specime n Type: CAPILLARY Comment: Test performed by: [id number] Meter #: [id number] Ordering Provider: FRANCK TURNER Report Released Date/Time: Sep 09, 2024 08:17 AM Reporting Lab: [address] [address] Performing Lab: [address] [address] GLUCOSE-HAND MONITOR 112 mg/dL H Sep 08, 2024 09:13 PM [facility] GLUCOSE-HAND MONITOR CAPILLARY Specime n Type: CAPILLARY Comment: Test performed by: [id number] Meter #: [id number] Ordering Provider: FRANCK TURNER Report Released Date/Time: Sep 08, 2024 09:31 PM Reporting Lab: [address] [address] Performing Lab: [address] [address] GLUCOSE-HAND MONITOR 107 mg/dL H Sep 08, 2024 03:49 PM [facility] GLUCOSE-HAND MONITOR CAPILLARY Specime n Type: CAPILLARY Comment: AAMIR RN notified Test performed by: [id number] Meter #: [id number] Ordering Provider: FRANCK TURNER Report Released Date/Time: Sep 08, 2024 04:33 PM Reporting Lab: [address] [address] Performing Lab: [address] [address] GLUCOSE-HAND MONITOR 162 mg/dL H Sep 08, 2024 11:43 AM [facility] GLUCOSE-HAND MONITOR CAPILLARY Specime n Type: CAPILLARY Comment: AAMIR RN notified Test performed by: [id number] Meter #: [id number] Ordering Provider: FRANCK TURNER Report Released Date/Time: Sep 08, 2024 12:03 PM Reporting Lab: [address] [address] Performing Lab: [address] [address] GLUCOSE-HAND MONITOR 133 mg/dL H Sep 08, 2024 06:13 AM [facility] GLUCOSE-HAND MONITOR CAPILLARY Specime n Type: CAPILLARY Comment: Test performed by: [id number] Meter #: [id number] Ordering Provider: FRANCK TURNER Report Released Date/Time: Sep 08, 2024 06:46 AM Reporting Lab: [address] [address] Performing Lab: [address] [address] GLUCOSE-HAND MONITOR 104 mg/dL H Sep 07, 2024 07:59 PM [facility] GLUCOSE-HAND MONITOR CAPILLARY Specime n Type: CAPILLARY Comment: Test performed by: [id number] Meter #: [id number] Ordering Provider: FRANCK TURNER Report Released Date/Time: Sep 07, 2024 09:05 PM Reporting Lab: [address] [address] Performing Lab: [address] [address] GLUCOSE-HAND MONITOR 107 mg/dL H Sep 07, 2024 04:39 PM [facility] GLUCOSE-HAND MONITOR CAPILLARY Specime n Type: CAPILLARY Comment: Test performed by: [id number] Meter #: [id number] Ordering Provider: FRANCK TURNER Report Released Date/Time: Sep 07, 2024 05:09 PM Reporting Lab: [address] [address] Performing Lab: [address] [address] GLUCOSE-HAND MONITOR 105 mg/dL H Sep 07, 2024 11:41 AM [facility] GLUCOSE-HAND MONITOR CAPILLARY Specime n Type: CAPILLARY Comment: Test performed by: [id number] Meter #: [id number] Ordering Provider: FRANCK TURNER Report Released Date/Time: Sep 07, 2024 12:41 PM Reporting Lab: [address] [address] Performing Lab: [address] [address] GLUCOSE-HAND MONITOR 144 mg/dL H -Sep 07, 2024 05:56 AM [facility] GLUCOSE-HAND MONITOR CAPILLARY Specime n Type: CAPILLARY Comment: Test performed by: [id number] Meter #: [id number] Ordering Provider: FRANCK TURNER Report Released Date/Time: Sep 07, 2024 06:31 AM Reporting Lab: [place] [phone] Performing Lab: [place] [phone] GLUCOSE-HAND MONITOR 96 mg/dL Sep 06, 2024 08:10 PM [facility] GLUCOSE-HAND MONITOR CAPILLARY Specime n Type: CAPILLARY Comment: Test performed by: [id number] Meter #: [id number] Ordering Provider: FRANCK TURNER Report Released Date/Time: Sep 06, 2024 08:52 PM Reporting Lab: [address] [address] Performing Lab: [address] [address] GLUCOSE-HAND MONITOR 124 mg/dL H Sep 06, 2024 04:27 PM [facility] GLUCOSE-HAND MONITOR CAPILLARY Specime n Type: CAPILLARY Comment: Test performed by: [id number] Meter #: [id number] Ordering Provider: FRANCK TURNER Report Released Date/Time: Sep 06, 2024 05:15 PM Reporting Lab: [address] [address] Performing Lab: [address] [address] GLUCOSE-HAND MONITOR 107 mg/dL H Sep 06, 2024 12:12 PM [facility] GLUCOSE-HAND MONITOR CAPILLARY Specime n Type: CAPILLARY Comment: Test performed by: [id number] Meter #: [id number] Ordering Provider: FRANCK TURNER Report Released Date/Time: Sep 06, 2024 12:29 PM Reporting Lab: [address] [address] Performing Lab: [address] [address] GLUCOSE-HAND MONITOR 181 mg/dL H Sep 06, 2024 06:13 AM [facility] GLUCOSE-HAND MONITOR CAPILLARY Specime n Type: CAPILLARY Comment: Test performed by: [id number] Meter #: [id number] Ordering Provider: FRANCK TURNER Report Released Date/Time: Sep 06, 2024 06:36 AM Reporting Lab: [address] [address] Performing Lab: [address] [address] GLUCOSE-HAND MONITOR 102 mg/dL H Sep 05, 2024 08:47 PM [facility] GLUCOSE-HAND MONITOR CAPILLARY Specime n Type: CAPILLARY Comment: Test performed by: [id number] Meter #: [id number] Ordering Provider: FRANCK TURNER Report Released Date/Time: Sep 06, 2024 02:13 AM Reporting Lab: [address] [address] Performing Lab: [address] [address] GLUCOSE-HAND MONITOR 103 mg/dL H Sep 05, 2024 04:40 PM [facility] GLUCOSE-HAND MONITOR CAPILLARY Specime n Type: CAPILLARY Comment: AAMIR RN notified Test performed by: [id number] Meter #: [id number] Ordering Provider: FRANCK TURNER Report Released Date/Time: Sep 05, 2024 05:11 PM Reporting Lab: [address] [address] Performing Lab: [address] [address] GLUCOSE-HAND MONITOR 113 mg/dL H Sep 05, 2024 12:06 PM [facility] GLUCOSE-HAND MONITOR CAPILLARY Specime n Type: CAPILLARY Comment: Test performed by: [id number] Meter #: [id number] Ordering Provider: FRANCK TURNER Report Released Date/Time: Sep 05, 2024 12:23 PM Reporting Lab: [address] [address] Performing Lab: [address] [address] GLUCOSE-HAND MONITOR 115 mg/dL H Sep 05, 2024 06:26 AM [facility] GLUCOSE-HAND MONITOR CAPILLARY Specime n Type: CAPILLARY Comment: AAMIR Correction Dose Test performed by: [id number] Meter #: [id number] Ordering Provider: FRANCK TURNER Report Released Date/Time: Sep 05, 2024 06:43 AM Reporting Lab: [address] [address] Performing Lab: [address] [address] GLUCOSE-HAND MONITOR 111 mg/dL H Sep 04, 2024 08:59 PM [facility] GLUCOSE-HAND MONITOR CAPILLARY Specime n Type: CAPILLARY Comment: AAMIR RN notified Test performed by: [id number] Meter #: [id number] Ordering Provider: FRANCK TURNER Report Released Date/Time: Sep 04, 2024 09:36 PM Reporting Lab: [address] [address] Performing Lab: [address] [address] GLUCOSE-HAND MONITOR 123 mg/dL H Sep 04, 2024 04:41 PM [facility] GLUCOSE-HAND MONITOR CAPILLARY Specime n Type: CAPILLARY Comment: AAMIR RN notified Test performed by: [id number] Meter #: [id number] Ordering Provider: FRANCK TURNER Report Released Date/Time: Sep 04, 2024 05:03 PM Reporting Lab: [address] [address] Performing Lab: [address] [address] GLUCOSE-HAND MONITOR 118 mg/dL H Sep 04, 2024 12:36 PM [facility] GLUCOSE-HAND MONITOR CAPILLARY Specime n Type: CAPILLARY Comment: AAMIR RN notified Test performed by: [id number] Meter #: [id number] Ordering Provider: FRANCK TURNER Report Released Date/Time: Sep 04, 2024 12:53 PM Reporting Lab: [place] [phone] Performing Lab: [place] [address] GLUCOSE-HAND MONITOR 129 mg/dL H 71-99 Sep 04, 2024 12:03 PM [facility] RESPIRATORY VIRUS PANEL (BIOFIRE) NASOPHARYN X Specimen Type: NASOPHARYNX Comment: ~For Test: RESPIRATORY VIRUS PANEL (BIOFIRE) ~ORDER READ BACK TO: FRANCK TURNER 09/04/24@11:30 Ordering Provider: FRANCK TURNER Report Released Date/Time: Sep 04, 2024 11:33 AM Reporting Lab: [place] [phone] Performing Lab: [place] [phone] ADENOVIRUS (BIOFIRE) Not Detected -Not D etected [...] 04, 2024 06:55 AM [facility] MAGNESIUM PLASMA Specimen Type: PLASM A Comment: [...] 11:10 AM Reporting Lab: [place] [facility] [address] [facility] [address] Performing Lab: [facility] [address] [facility] [address] MAGNESIUM 1.8 mg/dL 1.6-2.6 Sep 04, 2024 06:55 AM [facility] PANEL 1 PLASMA Specimen Type: PLASM A [...] Sep 03, 2024 11:10 AM Reporting Lab: [address] [address] Performing Lab: [address] [address] CREATININE 0.75 mg/dL 0.72-1.25 UREA NITROGEN 13 mg/dL 9-25 GLUCOSE 105 mg/dL H 74-100 SODIUM 128 mmol/L L 136-145 POTASSIUM 3.9 mmol/L 3.5-5.1 CHLORIDE 99 mmol/L 98-107 CO2 21 mmol/L L 22-29 CALCIUM 8.0 mg/dL L 8.4-10.2 ANION GAP 8 meq/L 3-19 eGFR (CKD-EPI) >90 Sep 04, 2024 06:02 AM [facility] GLUCOSE-HAND MONITOR CAPILLARY Specime n Type: CAPILLARY Comment: Test performed by: [id number] Meter #: [id number] Ordering Provider: FRANCK TURNER Report Released Date/Time: Sep 04, 2024 06:28 AM Reporting Lab: [address] [address] Performing Lab: [address] [address] GLUCOSE-HAND MONITOR 114 mg/dL H 71-99 Sep 03, 2024 05:19 PM [facility] GLUCOSE-HAND MONITOR CAPILLARY Specime n Type: CAPILLARY Comment: Test performed by: [id number] Meter #: [id number] Ordering Provider: FRANCK TURNER Report Released Date/Time: Sep 03, 2024 05:37 PM Reporting Lab: [address] [address] Performing Lab: [address] [address] GLUCOSE-HAND MONITOR 124 mg/dL H 71-99 Sep 03, 2024 04:41 PM [facility] GLUCOSE-HAND MONITOR CAPILLARY Specime n Type: CAPILLARY Comment: Test performed by: [id number] Meter #: [id number] Ordering Provider: FRANCK TURNER Report Released Date/Time: Sep 03, 2024 06:09 PM Reporting Lab: [address] [address] Performing Lab: [address] [address] GLUCOSE-HAND MONITOR 112 mg/dL H 71-99 Sep 03, 2024 01:35 PM [facility] URINE LYTES URINE Specimen Type : URINE Comment: ~Altered mental status with no identifiable cause Ordering Provider: FRANCK TURNER Report Released Date/Time: Sep 02, 2024 04:44 PM Reporting Lab: [address] [address] Performing Lab: [address] [address] SODIUM 130 mmol/L POTASSIUM 47.6 mmol/L CHLORIDE 137 mmol/L Sep 03, 2024 01:35 PM [facility] CREATININE URINE Specimen Type: URINE Comment: ~Altered mental status with no identifiable cause Ordering Provider: FRANCK TURNER Report Released Date/Time: Sep 02, 2024 04:44 PM Reporting Lab: [address] [address] Performing Lab: [address] [address] CREATININE 150.9 mg/dL Sep 03, 2024 01:35 PM [facility] OSMOLALITY URINE Specimen Type: URINE Comment: ~Altered mental status with no identifiable cause Ordering Provider: FRANCK TURNER Report Released Date/Time: Sep 02, 2024 04:44 PM Reporting Lab: [address] [address] Performing Lab: [address] [address] OSMOLALITY 522 mosm/kg 38-1400 Sep 03, 2024 01:35 PM [facility] URINALYSIS WITH REFLEX TO CULTURE URINE Specimen Type: URINE Comment: ~Altered mental status with no identifiable cause Ordering Provider: FRANCK TURNER Report Released Date/Time: Sep 02, 2024 04:44 PM Reporting Lab: [address] [address] Performing Lab: [address] [address] URINE COLOR Yellow Colorless-Yellow APPEARANCE CLOUDY H [...] 03, 2024 01:35 PM [facility] UREA NITROGEN URINE Specimen Type : URINE Comment: ~Altered mental status with no identifiable cause Ordering Provider: FRANCK TURNER Report Released Date/Time: Sep 02, 2024 04:44 PM Reporting Lab: [address] [address] Performing Lab: [place] [phone] UREA NITROGEN 320 mg/dL Sep 03, 2024 11:58 AM [facility] GLUCOSE-HAND MONITOR CAPILLARY Specime n Type: CAPILLARY Comment: AAMIR RN notified Test performed by: [id number] Meter #: [id number] Ordering Provider: FRANCK TURNER Report Released Date/Time: Sep 03, 2024 12:15 PM Reporting Lab: [address] [address] Performing Lab: [address] [address] GLUCOSE-HAND MONITOR 135 mg/dL H Sep 03, 2024 07:09 AM [facility] GLUCOSE-HAND MONITOR CAPILLARY Specime n Type: CAPILLARY Comment: Test performed by: [id number] Meter #: [id number] Ordering Provider: FRANCK TURNER Report Released Date/Time: Sep 03, 2024 07:26 AM Reporting Lab: [address] [address] Performing Lab: [address] [address] GLUCOSE-HAND MONITOR 120 mg/dL H Sep 03, 2024 07:05 AM [facility] CBC/PLT BLOOD Specimen Type: BLOOD No comment entered. Ordering Provider: FRANCK TURNER Report Released Date/Time: Sep 02, 2024 04:29 PM Reporting Lab: [address] [address] Performing Lab: [address] [address] WBC 6.9 10*3/uL 5.0-10.0 RBC 3.48 10*6/uL L 4.6-6.2 HGB 9.5 g/dL L 14.0-18.0 HCT 29.1 L 42.0-52.0 MCV 83.6 fL 80.0-94.0 MCH 27.3 pg 27.0-31.0 MCHC 32.6 g/dL 32.0-36.0 PLT 258 10*3/uL 150-450 MPV 10.3 fL 9.0-13.1 RDW 14.8 11.0-16.0 NRBC 0.0 0.0-0.0 Sep 03, 2024 07:05 AM [facility] MAGNESIUM PLASMA Specimen Type: PLASM A Comment: [...] Sep 02, 2024 04:29 PM Reporting Lab: [address] [address] Performing Lab: [address] [address] MAGNESIUM 1.7 mg/dL 1.6-2.6 Sep 03, 2024 07:05 AM [facility] PANEL 1 PLASMA Specimen Type: PLASM A [...] Sep 02, 2024 04:29 PM Reporting Lab: [address] [address] Performing Lab: [address] [address] CREATININE 0.82 mg/dL 0.72-1.25 UREA NITROGEN 12 mg/dL 9-25 GLUCOSE 109 mg/dL H 74-100 SODIUM 129 mmol/L L 136-145 POTASSIUM 4.2 mmol/L 3.5-5.1 CHLORIDE 99 mmol/L 98-107 CO2 21 mmol/L L 22-29 CALCIUM 8.1 mg/dL L 8.4-10.2 ANION GAP 9 meq/L 3-19 eGFR (CKD-EPI) 90 Sep 03, 2024 07:05 AM [facility] GLYCOHEMOGLOBIN BLOOD Specimen Type: BLOOD Comment: Prediabetes: 5.7%-6.4% Diabetes: >= 6.5% [facility] guidelines for A1c interpretation: Glycemic control targets are based on Shared Decision Making between clinicians and patients. Criteria used to establish an A1c target recommendation can be found at https://www.[place].gov/qualityandpatientsafety/ and include the use of result accuracy [...] 8.73 and 9.27. Ref: https://ngsp.org/CAPdata.asp. The in-house [employer] D-100 analyzer has a historical CV <= 2%. Contact the laboratory for further performance characteristics of this assay. Ordering Provider: FRANCK TURNER Report Released Date/Time: Sep 02, 2024 04:29 PM Reporting Lab: [address] [address] Performing Lab: [place] [phone] GLYCOHEMOGLOBIN 5.6 4.4-5.6 Sep 03, 2024 07:05 AM [facility] OSMOLALITY SERUM Specimen Type: SERUM No comment entered. Ordering Provider: FRANCK TURNER Report Released Date/Time: Sep 02, 2024 04:44 PM Reporting Lab: [address] [address] Performing Lab: [address] [address] OSMOLALITY 271 mosm/kg L 280-300 Sep 02, 2024 08:15 PM [facility] GLUCOSE-HAND MONITOR CAPILLARY Specime n Type: CAPILLARY Comment: AAMIR RN notified Test performed by: [id number] Meter #: [id number] Ordering Provider: FRANCK TURNER Report Released Date/Time: Sep 02, 2024 08:57 PM Reporting Lab: [address] [address] Performing Lab: [address] [address] GLUCOSE-HAND MONITOR 126 mg/dL H 71-99 Sep 02, 2024 06:10 PM [facility] MRSA SURVL NARES DNA NARES Specime n [...] Sep 02, 2024 05:12 PM Reporting Lab: [address] [address] Performing Lab: [address] [address] MRSA SURVL NARES DNA Negative Negative Sep 02, 2024 05:36 PM [facility] GLUCOSE-HAND MONITOR CAPILLARY Specime n Type: CAPILLARY Comment: Test performed by: [id number] Meter #: [id number] Ordering Provider: FRANCK TURNER Report Released Date/Time: Sep 02, 2024 05:53 PM Reporting Lab: [address] [address] Performing Lab: [address] [address] GLUCOSE-HAND MONITOR 127 mg/dL H 71-99 Aug 29, 2024 10:04 PM [facility] URINALYSIS WITH REFLEX TO CULTURE URINE Specimen Type: URINE Comment: ~For Test: URINALYSIS WITH REFLEX TO CULTURE ~REORDER Ordering Provider: FELISA COLE Report Released Date/Time: Aug 29, 2024 09:36 PM Reporting Lab: [address] [address] Performing Lab: [address] [address] URINE COLOR Yellow Colorless-Yellow APPEARANCE Clear Clear [...] 0-28 Aug 29, 2024 08:32 PM [facility] HIGH SENSITIVITY TROPONIN [...] 29, 2024 07:55 PM Reporting Lab: [address] [address] Performing Lab: [address] [address] HIGH SENSITIVITY TROPONIN I 7 4-35 Aug 29, 2024 08:32 PM [facility] CBC/PLT BLOOD Specimen Type: BLOOD No comment entered. Ordering Provider: FELISA COLE Report Released Date/Time: Aug 29, 2024 07:55 PM Reporting Lab: [address] [address] Performing Lab: [address] [address] WBC 11.2 10*3/uL H 5.0-10.0 RBC 3.97 10*6/uL L 4.6-6.2 HGB 10.9 g/dL L 14.0-18.0 HCT 33.5 L 42.0-52.0 MCV 84.4 fL 80.0-94.0 MCH 27.5 pg 27.0-31.0 MCHC 32.5 g/dL 32.0-36.0 PLT 230 10*3/uL 150-450 MPV 10.2 fL 9.0-13.1 RDW 14.6 11.0-16.0 NRBC 0.0 0.0-0.0 Aug 29, 2024 08:32 PM [facility] PANEL 5 PLASMA Specimen Type: PLASM A [...] I information resource can be reached in [facility] in the Tools menu, under the [...] 29, 2024 07:55 PM Reporting Lab: [address] [address] Performing Lab: [address] [address] CREATININE 0.85 mg/dL 0.72-1.25 UREA NITROGEN 15 [...] and tobacco- related health factors from the [place] facility where the Encounter took place. Current Smoking Status This section includes the most current smoking, or tobacco-related health factor, from the [place] facility where the Encounter took place. Date/Time Current Smoking Status Comment Facil ity Feb 06, 2024 10:00 AM VA-TOBACCO USER SOME DAYS [facility] Tobacco Use History This section includes a history of the smoking, or tobacco-related health factors, that were collected on or before the date of the Encounter. The data comes from the [place] facility where the Encounter took place. 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 This section includes ALL of a patient's completed or amended [place] Advance and Rescinded Directives. The entries below indicate that a directive exists for the patient, but an actual copy is not included with this document. The data comes from all [facility]. Date Advance Directives Provider Source Mar 08, 2024 [facility] DIRECTIVE DIS[facility] Rad[facility] Reports: +/- 30 days of [...] BRAIN W & W/O: LUIS MANUEL PERDOMO [id number] -1945 M Exm Date: SEP 06, 2024@13:40 Req Phys: FRANCK TURNER Pat Loc: 5-MED/TEL/09-06-2024@19:09 Img Loc: [facility] Service: [place] [address] (Case [id number] COMPLETE) MRI BRAIN W & W/O (MRI Detailed) CPT:70926 Contrast Media : Gadolinium Reason for Study: SEE CLINICAL HISTORY Pharmaceutical: GADOTERIDOL 279.3MG/ML 20ML INJ, 19ml Clinical History: MRI Screening (Required): IMPLANTED DEVICE DOCUMENTATION IMPLANTED DEVICE DOCUMENTATION NOT FOUND Does the [place] have any Cardiac Implants? None Does the have any implanted stimulators? None Does the [place] have cochlear implants? No Does the have Cerebral aneurysm clip(s)? I don't know Does the [place] have any shrapnel? I don't know If [...] 06, 2024 Date Verified: SEP 06, 2024 Sales Ledger Administrator E-Sig: Report: MRI brain without and with [...] Staff: ARCENIO LEYVA, Staff Radiologist Verified by research program assistant for ARCENIO LEYVA /ARCENIO AVILA-CDD [facility] Sep 06, 2024 01:40 PM MRI C SPINE W & W/ O CONTRAST(FURTHER SEQUENCES): LUIS MANUEL PERDOMO [id number] -1945 M Exm Date: SEP 06, 2024@13:40 Req Phys: FRANCK TURNER [facility] Loc: 5-MED/TEL/09-07-2024@06:42 Img Loc: [facility] Service: [place] [address] (Case [id number] COMPLETE) MRI C SPINE W & W/O CONTRAST(FURT(MRI Detailed) CPT:08702 Contrast Media : Gadolinium Reason for Study: [...] aneurysm clip(s)? I don't know Does the Zarephath have any shrapnel? I don't know If yes, where in your body? Please list other implants not listed above: MRI table has a weight limit of 551 lbs. Zarephath's Weight: *212 lb [96.16 kg] (09/04/2024 05:19) Is this patient claustrophobic?: No REASON FOR EXAM: MULTIPLE SCLEROSIS (indicate suspected or established) PERTINENT PATIENT HISTORY: MS c/f flare Risk factors for GADOLINIUM NEPHROGENIC SYSTEMIC SCLEROSIS: Report Status: Verified Date Reported: SEP 07, 2024 Date Verified: SEP 07, 2024 Sales Ledger Administrator E-Sig: Report: EXAMINATION: MRI OF THE CERVICAL [...] Interpreting Staff: HUANG TAI, Radiologist Verified by research program assistant for HUANG TAI /HUANG [facility] [facility] Sep 03, 2024 10:45 AM CHEST SINGLE(1) EW: LUIS MANUEL PERDOMO [id number] -1945 M Ex Date: SEP 03, 2024@10:45 Req Phys: ALSIP,FRANCK ROBERTDAVID Faith Loc: 5-MED/TEL/09-03-2024@10:56 Img Loc: CDD RADIOLOGY Service: [place] [address] (Case [id number] COMPLETE)CHEST SINGLE(1) VIEW (RAD Detailed) CPT:04890 Proc Modifiers : PORTABLE EXAM Reason for Study: Eval volume status Clinical History: Report Status: Verified Date Reported: SEP 03, 2024 Date Verified: SEP 03, 2024 Sales Ledger Administrator E-Sig: Report: EXAMINATION: SINGLE VIEW CHEST CLINICAL [...] Interpreting Staff: HUANG TAI, Radiologist Verified by research program assistant for HUANG TAI /HUANG [facility] Aug 29, 2024 08:[address] HEAD W/O CONT: LUIS MANUEL PERDOMO [id number] -1945 M Exm Date: AUG 29, 2024@20:28 Req Phys: FELISA COLE Loc: ED/4P-12A (Req'g Loc) Img Loc: CT SCAN Service: [place] [address] (Case [id number] COMPLETE) CT HEAD W/O CONT (CT Detailed) CPT:88718 Reason for Study: SEE CLINICAL HISTORY Clinical History: REASON FOR SEND OUT: ATTENDING PHYSICIAN NAME: New transient neurological s/s - suspected TIA HISTORY/REASON FOR EXAM: confusion Report Status: Verified Date Reported: AUG 29, 2024 Date Verified: AUG 29, 2024 Sales Ledger Administrator E-Sig: Report: HISTORY confusion COMPARISON No prior [...] Staff: ABDIRAHMAN DAVIDSON, Staff Physician Verified by research program assistant for ABDIRAHMAN DAVIDSON /[facility] Pathology Reports: +/- 30 [...] Reporting Lab: [facility] [CLIA# [id number]] [address] [place] [id number] Accession [UID]: [id number] [[id number]] Received: Sep 03, 2024@14:02 Collection sample: URINE, [...] Performed By: [facility] [CLIA# [id number]] [address] [place] [phone] MAGDY [facility]ABRESE [facility] Sep 02, 2024 06:00 PM LR MICROBIOLOGY RE PORT: Reporting Lab: [facility] [CLIA# [id number]] [address] [place] [id number] Accession [UID]: [id number] [[id number]] Received: Sep 02, 2024@18:07 Collection sample: BLD CULTURE BOTTLES Collection date: Sep 02, 2024 18:00 Site/Specimen: BLOOD Provider: FRANCK TURNER Comment on specimen: L HAND Test(s) ordered: CULTURE, BLOOD................ completed: Sep 08, 2024 * BACTERIOLOGY FINAL REPORT => Sep 08, 2024 08:25 [facility] CODE: [id number] Bacteriology Remark(s): Blood culture status=NO GROWTH (unless notified otherwise) 09/03/2024 AEROBIC: NO GROWTH ANAEROBIC: NO GROWTH =--=--=--=--=--=--=--=--=--=-- =--=--=--=--=--=--=--=--=--=-- =--=--=--=--=--=-- Performing Laboratory: Bacteriology Report Performed By: [facility] [CLIA# [id number]] [address] [place] [phone] MAGDY CALABRESE [facility] Aug 29, 2024 10:18 PM LR MICROBIOLOGY RE PORT: Reporting Lab: [facility] [CLIA# [id number]] [address] [place] [id number] Accession [UID]: [id number] [[id number]] Received: Aug 29, 2024@22:18 Collection sample: URINE, CLEAN CATCH Collection date: Aug 29, 2024 22:18 Site/Specimen: URINE Provider: FELISA COLE Test(s) ordered: CULTURE, URINE................ completed: Aug 31, 2024 09:51 * BACTERIOLOGY FINAL REPORT => Aug 31, 2024 09:51 TECH CODE: [id number] Bacteriology Remark(s): NO GROWTH 08/30/2024 <10,000 CFU/ML. 08/31/2024 =--=--=--=--=--=--=--=--=--=-- =--=--=--=--=--=--=--=--=--=-- =--=--=--=--=--=-- Performing Laboratory: Bacteriology Report Performed By: [facility] [CLIA# [id number]] [address] [place] [address] MAGDY CALABRESE[facility]
--- OUTSIDE RECORDS SUMMARY | 2024-09-05 11:57 | XMS_ITS ---
[place] DAILY HOSPITALIZATION DATA [facility] Encounter Summary Created on: September 22, 2024 LUIS MANUEL PERDOMO : 1945 Sex: Male Author Name [facility] Organization [facility] Address [address] [place] [address] Care Team Providers Care Umbrella Mender Name Role Phone YULISSA HENDERSON Primary Care [...] PLAN F Mar 24, 2014 PLAN F [id number] [phone] LUIS MANUEL PERDOMO PATIENT [facility] [place] BLUECARD PREFERRED PROVIDER ORGANIZAT ION (PPO) [facility] SLE Sep 21, 2012 [id number] LUIS MANUEL PERDOMO PATIENT [employer] ([id number]) PRESCRIPT ION WL3A Sep 21, 2012 [id number] LUIS MANUEL PERDOMO PATIENT MEDICARE (WNR) MEDICARE (M) PART B Sep 21, 2012 PART B [id number] NOEMI PERDOMO PATIENT MEDICARE (WNR) MEDICARE (M) PART A Jan 22, 2011 PART A [id number] LEANNE, NOEMI PATIENT MEDICARE PART D (WNR) MEDICARE (M) PART D Mar 24, 2014 PART D [id number] LUIS MANUEL PERDOMO PATIENT Selected Encounter This section includes the information on record at [place] for the Encounter. Date/Time Encounter Type Encounter Description Reason Pro vider Source Sep 05, 2024 03:57 PM Inpatient Visit DAILY HOSPITALIZATION DATA [facility] Encounter Template Text not used by [place] Plan of Treatment: Future Appointments (+ 6 months) and Future Tests (+/- 45 days) The Plan of Treatment section includes future care activities for the [facility] [place] [facility] This section includes future [...] 13, 2024 08:00 AM AMBULATORY - NONE [facility] Sep 30, 2024 01:30 PM AMBULATORY - SURGERY [place] [facility] Active, Pending, and Scheduled Orders This section includes a listing of several types of active, pending, and scheduled orders, including clinic medications orders, diagnostic test orders, procedure orders and consult orders; where the start date of the order is 45 days before the date of the Encounter or 45 days after the date of theEncounter. The data comes from all [facility] facilities. Test Date/Time Test Type Test Details Facility Name Sep 13, 2024 01:33 PM Consult Order [facility] CARE Cons Camp Coordinator's Choice [facility] Lab Results: +/- 30 days of the [...] Type Comment Sep 09, 2024 12:16 PM [facility] GLUCOSE-HAND MONITOR CAPILLARY Specimen Type: CAPILLARY Comment: Test performed by: [id number] Meter #: [id number] Ordering Provider: FRANCK TURNER Report Released Date/Time: Sep 09, 2024 12:33 PM Reporting Lab: [address] [address] Performing Lab: [address] [address] GLUCOSE-HAND MONITOR 116 mg/dL H Sep 09, 2024 06:07 AM [facility] GLUCOSE-HAND MONITOR CAPILLARY Specime n Type: CAPILLARY Comment: Test performed by: [id number] Meter #: [id number] Ordering Provider: FRANCK TURNER Report Released Date/Time: Sep 09, 2024 08:17 AM Reporting Lab: [address] [address] Performing Lab: [address] [address] GLUCOSE-HAND MONITOR 112 mg/dL H Sep 08, 2024 09:13 PM [facility] GLUCOSE-HAND MONITOR CAPILLARY Specime n Type: CAPILLARY Comment: Test performed by: [id number] Meter #: [id number] Ordering Provider: FRANCK TURNER Report Released Date/Time: Sep 08, 2024 09:31 PM Reporting Lab: [address] [address] Performing Lab: [address] [address] GLUCOSE-HAND MONITOR 107 mg/dL H Sep 08, 2024 03:49 PM [facility] GLUCOSE-HAND MONITOR CAPILLARY Specime n Type: CAPILLARY Comment: AAMIR RN notified Test performed by: [id number] Meter #: [id number] Ordering Provider: FRANCK TURNER Report Released Date/Time: Sep 08, 2024 04:33 PM Reporting Lab: [address] [address] Performing Lab: [address] [address] GLUCOSE-HAND MONITOR 162 mg/dL H Sep 08, 2024 11:43 AM [facility] GLUCOSE-HAND MONITOR CAPILLARY Specime n Type: CAPILLARY Comment: AAMIR RN notified Test performed by: [id number] Meter #: [id number] Ordering Provider: FRANCK TURNER Report Released Date/Time: Sep 08, 2024 12:03 PM Reporting Lab: [address] [address] Performing Lab: [address] [address] GLUCOSE-HAND MONITOR 133 mg/dL H Sep 08, 2024 06:13 AM [facility] GLUCOSE-HAND MONITOR CAPILLARY Specime n Type: CAPILLARY Comment: Test performed by: [id number] Meter #: [id number] Ordering Provider: FRANCK TURNER Report Released Date/Time: Sep 08, 2024 06:46 AM Reporting Lab: [address] [address] Performing Lab: [address] [address] GLUCOSE-HAND MONITOR 104 mg/dL H Sep 07, 2024 07:59 PM [facility] GLUCOSE-HAND MONITOR CAPILLARY Specime n Type: CAPILLARY Comment: Test performed by: [id number] Meter #: [id number] Ordering Provider: FRANCK TURNER Report Released Date/Time: Sep 07, 2024 09:05 PM Reporting Lab: [address] [address] Performing Lab: [address] [address] GLUCOSE-HAND MONITOR 107 mg/dL H Sep 07, 2024 04:39 PM [facility] GLUCOSE-HAND MONITOR CAPILLARY Specime n Type: CAPILLARY Comment: Test performed by: [id number] Meter #: [id number] Ordering Provider: FRANCK TURNER Report Released Date/Time: Sep 07, 2024 05:09 PM Reporting Lab: [address] [address] Performing Lab: [address] [address] GLUCOSE-HAND MONITOR 105 mg/dL H Sep 07, 2024 11:41 AM [facility] GLUCOSE-HAND MONITOR CAPILLARY Specime n Type: CAPILLARY Comment: Test performed by: [id number] Meter #: [id number] Ordering Provider: FRANCK TURNER Report Released Date/Time: Sep 07, 2024 12:41 PM Reporting Lab: [address] [address] Performing Lab: [address] [address] GLUCOSE-HAND MONITOR 144 mg/dL H Sep 07, 2024 05:56 AM [facility] GLUCOSE-HAND MONITOR CAPILLARY Specime n Type: CAPILLARY Comment: Test performed by: [id number] Meter #: [id number] Ordering Provider: FRANCK TURNER Report Released Date/Time: Sep 07, 2024 06:31 AM Reporting Lab: [address] [address] Performing Lab: [address] [address] GLUCOSE-HAND MONITOR 96 mg/dL Sep 06, 2024 08:10 PM [facility] GLUCOSE-HAND MONITOR CAPILLARY Specime n Type: CAPILLARY Comment: Test performed by: [id number] Meter #: [id number] Ordering Provider: FRANCK TURNER Report Released Date/Time: Sep 06, 2024 08:52 PM Reporting Lab: [address] [address] Performing Lab: [address] [address] GLUCOSE-HAND MONITOR 124 mg/dL H Sep 06, 2024 04:27 PM [facility] GLUCOSE-HAND MONITOR CAPILLARY Specime n Type: CAPILLARY Comment: Test performed by: [id number] Meter #: [id number] Ordering Provider: FRANCK TURNER Report Released Date/Time: Sep 06, 2024 05:15 PM Reporting Lab: [address] [address] Performing Lab: [address] [address] GLUCOSE-HAND MONITOR 107 mg/dL H Sep 06, 2024 12:12 PM [facility] GLUCOSE-HAND MONITOR CAPILLARY Specime n Type: CAPILLARY Comment: Test performed by: [id number] Meter #: [id number] Ordering Provider: FRANCK TURNER Report Released Date/Time: Sep 06, 2024 12:29 PM Reporting Lab: [address] [address] Performing Lab: [address] [address] GLUCOSE-HAND MONITOR 181 mg/dL H -Sep 06, 2024 06:13 AM [facility] GLUCOSE-HAND MONITOR CAPILLARY Specime n Type: CAPILLARY Comment: Test performed by: [id number] Meter #: [id number] Ordering Provider: FRANCK TURNER Report Released Date/Time: Sep 06, 2024 06:36 AM Reporting Lab: [address] [address] Performing Lab: [address] [address] GLUCOSE-HAND MONITOR 102 mg/dL H Sep 05, 2024 08:47 PM [facility] GLUCOSE-HAND MONITOR CAPILLARY Specime n Type: CAPILLARY Comment: Test performed by: [id number] Meter #: [id number] Ordering Provider: FRANCK TURNER Report Released Date/Time: Sep 06, 2024 02:13 AM Reporting Lab: [address] [address] Performing Lab: [address] [address] GLUCOSE-HAND MONITOR 103 mg/dL H Sep 05, 2024 04:40 PM [facility] GLUCOSE-HAND MONITOR CAPILLARY Specime n Type: CAPILLARY Comment: AAMIR RN notified Test performed by: [id number] Meter #: [id number] Ordering Provider: FRANCK TURNER Report Released Date/Time: Sep 05, 2024 05:11 PM Reporting Lab: [address] [address] Performing Lab: [address] [address] GLUCOSE-HAND MONITOR 113 mg/dL H Sep 05, 2024 12:06 PM [facility] GLUCOSE-HAND MONITOR CAPILLARY Specime n Type: CAPILLARY Comment: Test performed by: [id number] Meter #: [id number] Ordering Provider: FRANCK TURNER Report Released Date/Time: Sep 05, 2024 12:23 PM Reporting Lab: [address] [address] Performing Lab: [address] [address] GLUCOSE-HAND MONITOR 115 mg/dL H Sep 05, 2024 06:26 AM [facility] GLUCOSE-HAND MONITOR CAPILLARY Specime n Type: CAPILLARY Comment: AAMIR Correction Dose Test performed by: [id number] Meter #: [id number] Ordering Provider: FRANCK TURNER Report Released Date/Time: Sep 05, 2024 06:43 AM Reporting Lab: [address] [address] Performing Lab: [address] [address] GLUCOSE-HAND MONITOR 111 mg/dL H Sep 04, 2024 08:59 PM [facility] GLUCOSE-HAND MONITOR CAPILLARY Specime n Type: CAPILLARY Comment: AAMIR RN notified Test performed by: [id number] Meter #: [id number] Ordering Provider: FRANCK TURNER Report Released Date/Time: Sep 04, 2024 09:36 PM Reporting Lab: [address] [address] Performing Lab: [address] [address] GLUCOSE-HAND MONITOR 123 mg/dL H Sep 04, 2024 04:41 PM [facility] GLUCOSE-HAND MONITOR CAPILLARY Specime n Type: CAPILLARY Comment: AAMIR RN notified Test performed by: [id number] Meter #: [id number] Ordering Provider: FRANCK TURNER Report Released Date/Time: Sep 04, 2024 05:03 PM Reporting Lab: [address] [address] Performing Lab: [address] [address] GLUCOSE-HAND MONITOR 118 mg/dL H Sep 04, 2024 12:36 PM [facility] GLUCOSE-HAND MONITOR CAPILLARY Specime n Type: CAPILLARY Comment: AAMIR RN notified Test performed by: [id number] Meter #: [id number] Ordering Provider: FRANCK TURNER Report Released Date/Time: Sep 04, 2024 12:53 PM Reporting Lab: [address] [address] Performing Lab: [place] [address] GLUCOSE-HAND MONITOR 129 mg/dL H 71-99 Sep 04, 2024 12:03 PM [facility] RESPIRATORY VIRUS PANEL (BIOFIRE) NASOPHARYN X Specimen Type: NASOPHARYNX Comment: ~For Test: RESPIRATORY VIRUS PANEL (BIOFIRE) ~ORDER READ BACK TO: FRANCK TURNER 09/04/24@11:30 Ordering Provider: FRANCK TURNER Report Released Date/Time: Sep 04, 2024 11:33 AM Reporting Lab: [place] [phone] Performing Lab: [place] [phone] ADENOVIRUS (BIOFIRE) Not Detected -Not D etected [...] Detected Sep 04, 2024 06:55 AM [facility] MAGNESIUM PLASMA Specimen Type: PLASM A Comment: [...] 03, 2024 11:10 AM Reporting Lab: [facility] [address] [facility] [address] Performing Lab: [place] [id number] [facility] [address] MAGNESIUM 1.8 mg/dL 1.6-2.6 Sep 04, 2024 06:55 AM [facility] PANEL 1 PLASMA Specimen Type: PLASM A [...] 03, 2024 11:10 AM Reporting Lab: [id number] [address] Performing Lab: [address] CREATININE 0.75 mg/dL 0.72-1.25 [facility] NITROGEN 13 mg/dL 9-25 GLUCOSE 105 mg/dL H 74-100 SODIUM 128 mmol/L L 136-145 POTASSIUM 3.9 mmol/L 3.5-5.1 CHLORIDE 99 mmol/L 98-107 CO2 21 mmol/L L 22-29 CALCIUM 8.0 mg/dL L 8.4-10.2 ANION GAP 8 meq/L 3-19 eGFR (CKD-EPI) >90 Sep 04, 2024 06:02 AM [facility] GLUCOSE-HAND MONITOR CAPILLARY Specime n Type: CAPILLARY Comment: Test performed by: [id number] Meter #: [id number] Ordering Provider: FRANCK TURNER Report Released Date/Time: Sep 04, 2024 06:28 AM Reporting Lab: [address] Performing Lab: [address] GLUCOSE-HAND MONITOR 114 mg/dL H 71-99 Sep 03, 2024 05:19 PM [facility] GLUCOSE-HAND MONITOR CAPILLARY Specime n Type: CAPILLARY Comment: Test performed by: [id number] Meter #: [id number] Ordering Provider: FRANCK TURNER Report Released Date/Time: Sep 03, 2024 05:37 PM Reporting Lab: [address] Performing Lab: [address] [address] GLUCOSE-HAND MONITOR 124 mg/dL H 71-99 Sep 03, 2024 04:41 PM [facility] GLUCOSE-HAND MONITOR CAPILLARY Specime n Type: CAPILLARY Comment: Test performed by: [id number] Meter #: [id number] Ordering Provider: FRANCK TURNER Report Released Date/Time: Sep 03, 2024 06:09 PM Reporting Lab: [address] [address] Performing Lab: [address] [address] GLUCOSE-HAND MONITOR 112 mg/dL H 71-99 Sep 03, 2024 01:35 PM [facility] URINE LYTES URINE Specimen Type : URINE Comment: ~Altered mental status with no identifiable cause Ordering Provider: FRANCK TURNER Report Released Date/Time: Sep 02, 2024 04:44 PM Reporting Lab: [address] [address] Performing Lab: [address] [address] SODIUM 130 mmol/L POTASSIUM 47.6 mmol/L CHLORIDE 137 mmol/L Sep 03, 2024 01:35 PM [facility] CREATININE URINE Specimen Type: URINE Comment: ~Altered mental status with no identifiable cause Ordering Provider: FRANCK TURNER Report Released Date/Time: Sep 02, 2024 04:44 PM Reporting Lab: [address] [address] Performing Lab: [address] [address] CREATININE 150.9 mg/dL Sep 03, 2024 01:35 PM [facility] OSMOLALITY URINE Specimen Type: URINE Comment: ~Altered mental status with no identifiable cause Ordering Provider: FRANCK TURNER Report Released Date/Time: Sep 02, 2024 04:44 PM Reporting Lab: [address] [address] Performing Lab: [address] [address] OSMOLALITY 522 mosm/kg 38-1400 Sep 03, 2024 01:35 PM [facility] UREA NITROGEN URINE Specimen Type : URINE Comment: ~Altered mental status with no identifiable cause Ordering Provider: FRANCK TURNER Report Released Date/Time: Sep 02, 2024 04:44 PM Reporting Lab: [address] [address] Performing Lab: [address] [address] UREA NITROGEN 320 mg/dL Sep 03, 2024 01:35 PM [facility] URINALYSIS WITH REFLEX TO CULTURE URINE Specimen Type: URINE Comment: ~Altered mental status with no identifiable cause Ordering Provider: FRANCK TURNER Report Released Date/Time: Sep 02, 2024 04:44 PM Reporting Lab: [address] [address] Performing Lab: [address] [address] URINE COLOR Yellow Colorless-Yellow APPEARANCE CLOUDY H [...] H 0-28 Sep 03, 2024 11:58 AM [facility] GLUCOSE-HAND MONITOR CAPILLARY Specime n Type: CAPILLARY Comment: AAMIR RN notified Test performed by: [id number] Meter #: [id number] Ordering Provider: FRANCK TURNER Report Released Date/Time: Sep 03, 2024 12:15 PM Reporting Lab: [address] [address] Performing Lab: [address] [address] GLUCOSE-HAND MONITOR 135 mg/dL H Sep 03, 2024 07:09 AM [facility] GLUCOSE-HAND MONITOR CAPILLARY Specime n Type: CAPILLARY Comment: Test performed by: [id number] Meter #: [id number] Ordering Provider: FRANCK TURNER Report Released Date/Time: Sep 03, 2024 07:26 AM Reporting Lab: [address] [address] Performing Lab: [address] [address] GLUCOSE-HAND MONITOR 120 mg/dL H -Sep 03, 2024 07:05 AM [facility] PANEL 1 PLASMA Specimen Type: PLASM A [...] 02, 2024 04:29 PM Reporting Lab: [address] [address] Performing Lab: [address] [address] CREATININE 0.82 mg/dL 0.72-1.25 UREA NITROGEN 12 mg/dL 9-25 GLUCOSE 109 mg/dL H 74-100 SODIUM 129 mmol/L L 136-145 POTASSIUM 4.2 mmol/L 3.5-5.1 CHLORIDE 99 mmol/L 98-107 CO2 21 mmol/L L 22-29 CALCIUM 8.1 mg/dL L 8.4-10.2 ANION GAP 9 meq/L 3-19 eGFR (CKD-EPI) 90 Sep 03, 2024 07:05 AM [facility] CBC/PLT BLOOD Specimen Type: BLOOD No comment entered. Ordering Provider: FRANCK TURNER Report Released Date/Time: Sep 02, 2024 04:29 PM Reporting Lab: [address] [address] Performing Lab: [address] [address] WBC 6.9 10*3/uL 5.0-10.0 RBC 3.48 10*6/uL L 4.6-6.2 HGB 9.5 g/dL L 14.0-18.0 HCT 29.1 L 42.0-52.0 MCV 83.6 fL 80.0-94.0 MCH 27.3 pg 27.0-31.0 MCHC 32.6 g/dL 32.0-36.0 PLT 258 10*3/uL 150-450 MPV 10.3 fL 9.0-13.1 RDW 14.8 11.0-16.0 NRBC 0.0 0.0-0.0 Sep 03, 2024 07:05 AM [facility] MAGNESIUM PLASMA Specimen Type: PLASM A Comment: [...] 02, 2024 04:29 PM Reporting Lab: [address] [address] Performing Lab: [address] [address] MAGNESIUM 1.7 mg/dL 1.6-2.6 Sep 03, 2024 07:05 AM [facility] GLYCOHEMOGLOBIN BLOOD Specimen Type: BLOOD Comment: Prediabetes: 5.7%-6.4% Diabetes: >= 6.5% [place]-DoD guidelines for A1c interpretation: Glycemic control targets are based on Shared Decision Making between clinicians and patients. Criteria used to establish an A1c target recommendation can be found at https://www.md.gov/qualityandpatientsafety/ and include the use of result accuracy [...] 8.73 and 9.27. Ref: https://ngsp.org/CAPdata.asp. The in-house OggiFinogi-Parcel D-100 analyzer has a historical CV <= 2%. Contact the laboratory for further performance characteristics of this assay. Ordering Provider: FRANCK TURNER Report Released Date/Time: Sep 02, 2024 04:29 PM Reporting Lab: [address] [address] Performing Lab: [place] [phone] GLYCOHEMOGLOBIN 5.6 4.4-5.6 Sep 03, 2024 07:05 AM [facility] OSMOLALITY SERUM Specimen Type: SERUM No comment entered. Ordering Provider: FRANCK TURNER Report Released Date/Time: Sep 02, 2024 04:44 PM Reporting Lab: [address] [address] Performing Lab: [address] [address] OSMOLALITY 271 mosm/kg L 280-300 Sep 02, 2024 08:15 PM [facility] GLUCOSE-HAND MONITOR CAPILLARY Specime n Type: CAPILLARY Comment: AAMIR DEXTER notified Test performed by: [id number] Meter #: [id number] Ordering Provider: FRANCK TURNER Report Released Date/Time: Sep 02, 2024 08:57 PM Reporting Lab: [address] [address] Performing Lab: [address] [address] GLUCOSE-HAND MONITOR 126 mg/dL H 71-99 Sep 02, 2024 06:10 PM [facility] MRSA SURVL NARES DNA NARES Specime n [...] 02, 2024 05:12 PM Reporting Lab: [address] [address] Performing Lab: [address] [address] MRSA SURVL NARES DNA Negative Negative Sep 02, 2024 05:36 PM [facility] GLUCOSE-HAND MONITOR CAPILLARY Specime n Type: CAPILLARY Comment: Test performed by: [id number] Meter #: [id number] Ordering Provider: FRANCK TURNER Report Released Date/Time: Sep 02, 2024 05:53 PM Reporting Lab: [address] [address] Performing Lab: [address] [address] GLUCOSE-HAND MONITOR 127 mg/dL H 71-99 Aug 29, 2024 10:04 PM [facility] URINALYSIS WITH REFLEX TO CULTURE URINE Specimen Type: URINE Comment: ~For Test: URINALYSIS WITH REFLEX TO CULTURE ~REORDER Ordering Provider: FELISA COLE Report Released Date/Time: Aug 29, 2024 09:36 PM Reporting Lab: [address] [address] Performing Lab: [address] [address] URINE COLOR Yellow Colorless-Yellow APPEARANCE Clear Clear [...] 29, 2024 07:55 PM Reporting Lab: [address] [address] Performing Lab: [address] [address] HIGH SENSITIVITY TROPONIN I 7 4-35 Aug 29, 2024 08:32 PM [facility] CBC/PLT BLOOD Specimen Type: BLOOD No comment entered. Ordering Provider: FELISA COLE Report Released Date/Time: Aug 29, 2024 07:55 PM Reporting Lab: [address] [address] Performing Lab: [address] [address] WBC 11.2 10*3/uL H 5.0-10.0 RBC 3.97 [...] 29, 2024 07:55 PM Reporting Lab: [address] [address] Performing Lab: [address] [address] CREATININE 0.85 mg/dL 0.72-1.25 [facility] NITROGEN 15 [...] 05, 2024 11:09 PM 0 [place] [facility] Sep 05, 2024 08:46 PM 98.0 F 72 /min 145/67 mm[Hg] 18 /min 96 % [facility] Sep 05, 2024 04:39 PM 97.7 F 67 /min 115/63 mm[Hg] 17 /min 94 % 0 [place] [facility] Sep 05, 2024 12:47 PM 4 [place] [facility] Sep 05, 2024 12:21 PM 5 [place] Advance Directives: All historical and current [...] 08, 2024 ADVANCE DIRECTIVE DISCUSSION [facility] Radiology Reports: +/- 30 days [...] BRAIN W & W/O: LUIS MANUEL PERDOMO [id number] -1945 M Exm Date: SEP 06, 2024@13:40 Req Phys: FRANCK TURNER Loc: 5-MED/TEL/09-06-2024@19:09 Img Loc: [facility] Service: [place] [address] (Case [id number] COMPLETE) MRI BRAIN W & W/O (MRI Detailed) CPT:63752 Contrast Media : Gadolinium Reason for Study: SEE CLINICAL HISTORY Pharmaceutical: GADOTERIDOL 279.3MG/ML 20ML INJ, 19ml Clinical History: MRI Screening (Required): IMPLANTED DEVICE DOCUMENTATION IMPLANTED DEVICE DOCUMENTATION NOT FOUND Does the [place] have any Cardiac Implants? None Does the have any implanted stimulators? None Does the have cochlear implants? No Does the [place] have Cerebral aneurysm clip(s)? I don't know Does the have any shrapnel? I don't know If yes, where in your body? Please list other implants not listed above: MRI table has a weight limit of 551 lbs. [place]'s Weight: *212 lb [96.16 kg] (09/04/2024 05:19) Is this patient claustrophobic?: No REASON FOR EXAM:MULTIPLE SCLEROSIS (indicate suspected or established) PERTINENT PATIENT HISTORY: MS c/f for flare Risk factors for GADOLINIUM NEPHROGENIC SYSTEMIC SCLEROSIS: Report Status: Verified Date Reported: SEP 06, 2024 Date Verified: SEP 06, 2024 Workers Compensation Claims Examiner E-Sig: Report: MRI brain without and with [...] Staff: ARCENIO LEYVA, Staff Radiologist Verified by master electrician for ARCENIO LEYVA /ARCENIO AVILA-[facility] Sep 06, 2024 01:40 PM MRI C SPINE W & W/ O CONTRAST(FURTHER SEQUENCES): LUIS MANUEL PERDOMO [id number] -1945 M Exm Date: SEP 06, 2024@13:40 Req Phys: FRANCK TURNERSav Cuevas Loc: 5-MED/TEL/09-07-2024@06:42 Img Loc: [facility] Service: [facility] [place] [id number] (Case [id number] COMPLETE) MRI C SPINE W & W/O CONTRAST(FURT(MRI Detailed) CPT:75788 Contrast Media : Gadolinium Reason for Study: SEE CLINICAL HISTORY Pharmaceutical: GADOTERIDOL 279.3MG/ML 20ML INJ, 19ml Clinical History: STATUS OF PLAIN FILMS:Not performed (Provide justification for MR W/O prior plain films below.) MRI for MS MRI Screening (Required): IMPLANTED DEVICE DOCUMENTATION IMPLANTED DEVICE DOCUMENTATION NOT FOUND Does the [place] have any Cardiac Implants? None Does the [place] have any implanted stimulators? None Does the have cochlear implants? No Does the have Cerebral aneurysm clip(s)? I don't know Does the [place] have any shrapnel? I don't know If yes, where in your body? Please list other implants not listed above: MRI table has a weight limit of 551 lbs. [place]'s Weight: *212 lb [96.16 kg] (09/04/2024 05:19) Is this patient claustrophobic?: No REASON FOR EXAM: MULTIPLE SCLEROSIS (indicate suspected or established) PERTINENT PATIENT HISTORY: MS c/f flare Risk factors for GADOLINIUM NEPHROGENIC SYSTEMIC SCLEROSIS: Report Status: Verified Date Reported: SEP 07, 2024 Date Verified: SEP 07, 2024 Workers Compensation Claims Examiner E-Sig: Report: EXAMINATION: MRI OF THE CERVICAL [...] Interpreting Staff: HUANG TAI, Radiologist Verified by master electrician for HUANG TAI /HUANG WHEATLEY-Sav [facility] Sep 03, 2024 10:45 AM CHEST SINGLE(1) EW: LUIS MANUEL PERDOMO [id number] -1945 M Exm Date: SEP 03, 2024@10:45 Req Phys: FRANCK TURNER Pat Loc: 5-MED/TEL/09-03-2024@10:56 Img Loc: [facility] Service: [place] [address] (Case [id number] COMPLETE)CHEST SINGLE(1) VIEW (RAD Detailed) CPT:00241 Proc Modifiers : PORTABLE EXAM Reason for Study: Eval volume status Clinical History: Report Status: Verified Date Reported: SEP 03, 2024 Date Verified: SEP 03, 2024 Workers Compensation Claims Examiner E-Sig: Report: EXAMINATION: SINGLE VIEW CHEST CLINICAL [...] Interpreting Staff: HUANG TAI, Radiologist Verified by master electrician for HUANG TAI /HUANG WHEATLEY-Sav [facility] Aug 29, 2024 08:[address] HEAD W/O CONT: LUIS MANUEL PERDOMO [id number] -1945 M Exm Date: AUG 29, 2024@20:28 Req Phys: FELISA COLE Loc: ED/4P-12A (Req'g Loc) Img Loc: CT SCAN Service: [place] [address] (Case [id number] COMPLETE) CT HEAD W/O CONT (CT Detailed) CPT:00052 Reason for Study: SEE CLINICAL HISTORY Clinical History: REASON FOR SEND OUT: ATTENDING PHYSICIAN NAME: New transient neurological s/s - suspected TIA HISTORY/REASON FOR EXAM: confusion Report Status: Verified Date Reported: AUG 29, 2024 Date Verified: AUG 29, 2024 Workers Compensation Claims Examiner E-Sig: Report: HISTORY confusion COMPARISON No prior [...] Staff: ABDIRAHMAN CROW, Staff Physician Verified by master electrician for ABDIRAHMAN CROW /[facility] [...] RE PORT: Reporting Lab: [facility] [CLIA# [id number]] [address] [place] [id number] Accession [UID]: [id number] [[id number]] Received: Sep 03, 2024@14:02 Collection sample: URINE, [...] Bacteriology Report Performed By: [facility] [CLIA# [id number]] [address] [place] [id number] [facility] Sep 02, 2024 06:00 PM LR MICROBIOLOGY RE PORT: Reporting Lab: [facility] [CLIA# [id number]] [address] [place], [place] [id number] Accession [UID]: [id number] [[id number]] Received: Sep 02, 2024@18:07 Collection sample: BLD CULTURE BOTTLES Collection date: Sep 02, 2024 18:00 Site/Specimen: BLOOD Provider: FRANCK TURNER Comment on specimen: L HAND Test(s) ordered: CULTURE, BLOOD................ completed: Sep 08, 2024 * BACTERIOLOGY FINAL REPORT => Sep 08, 2024 08:25 TECH CODE: [id number] Bacteriology Remark(s): Blood culture status=NO GROWTH (unless notified otherwise) 09/03/2024 AEROBIC: NO GROWTH ANAEROBIC: NO GROWTH =--=--=--=--=--=--=--=--=--=-- =--=--=--=--=--=--=--=--=--=-- =--=--=--=--=--=-- Performing Laboratory: Bacteriology Report Performed By: [facility] [CLIA# [id number]] [address] [place], [place] [id number] [facility] Aug 29, 2024 10:18 PM LR MICROBIOLOGY RE PORT: Reporting Lab: [facility] [CLIA# [id number]] [address] [place], [place] [id number] Accession [UID]: [id number] [[id number]] Received: Aug 29, 2024@22:18 Collection sample: URINE, CLEAN CATCH Collection date: Aug 29, 2024 22:18 Site/Specimen: URINE Provider: FELISA COLE Test(s) ordered: CULTURE, URINE................ completed: Aug 31, 2024 09:51 * BACTERIOLOGY FINAL REPORT => Aug 31, 2024 09:51 TECH CODE: [id number] Bacteriology Remark(s): NO GROWTH 08/30/2024 <10,000 CFU/ML. 08/31/2024 =--=--=--=--=--=--=--=--=--=-- =--=--=--=--=--=--=--=--=--=-- =--=--=--=--=--=-- Performing Laboratory: Bacteriology Report Performed By: [facility] [IA# [id number]] [address] [place] [address] MAG[facility]RES[facility]
--- OUTSIDE RECORDS SUMMARY | 2024-09-05 17:34 | XMS_ITS ---
MD DAILY HOSPITALIZATION DATA [facility] Encounter Summary Created on: September 22, 2024 LUIS MANUEL PERDOMO : 1945 Sex: Male Author Name [facility] (MD) Organization [facility]) Address [address] [place] [address] Care Team Providers Care Duster Tender Name Role Phone YULISSA HENDERSON Primary Care [...] PLAN F Mar 24, 2014 PLAN F [id number] LUIS MANUEL PERDOMO PATIENT [facility] [place] [facility] PREFERRED PROVIDER ORGANIZAT ION (PPO) [facility] SLE Sep 21, 2012 [id number] LUIS MANUEL PERDOMO PATIENT [employer] ([id number]) PRESCRIPT ION WL3A Sep 21, 2012 [id number] LUIS MANUEL PERDOMO PATIENT MEDICARE (WNR) MEDICARE (M) PART B Sep 21, 2012 PART B [id number] [phone] NOEMI PERDOMO PATIENT MEDICARE (WNR) MEDICARE (M) PART A Jan 22, 2011 PART A [id number] [phone] LEANNE, NOEMI PATIENT MEDICARE PART D (WNR) MEDICARE (M) PART D Mar 24, 2014 PART D [id number] LUIS MANUEL PERDOMO PATIENT Selected Encounter This section includes the information on record at MD for the Encounter. Date/Time Encounter Type Encounter Description Reason Pro vider Source Sep 05, 2024 09:34 PM Inpatient Visit DAILY HOSPITALIZATION DATA [facility] Encounter Template Text not used by MD Plan of Treatment: Future Appointments (+ 6 months) and Future Tests (+/- 45 days) The Plan of Treatment section includes future care activities for the patient [facility] This section includes future appointments and future [...] 13, 2024 08:00 AM AMBULATORY - NONE [facility] Sep 30, 2024 01:30 PM [...] of theEncounter. The data comes from all [facility] facilities. Test Date/Time Test Type Test Details Facility Name Sep 13, 2024 01:33 PM Consult Order [facility] SKILLED HOME CARE Cons Die Fitter's Choice [facility] Lab Results: [...] Type Comment Sep 09, 2024 12:16 PM [facility] GLUCOSE-HAND MONITOR CAPILLARY Specimen Type: CAPILLARY Comment: Test performed by: [id number] Meter #: [id number] Ordering Provider: FRANCK TURNER Report Released Date/Time: Sep 09, 2024 12:33 PM Reporting Lab: [address] [address] Performing Lab: [address] [address] GLUCOSE-HAND MONITOR 116 mg/dL H Sep 09, 2024 06:07 AM [facility] GLUCOSE-HAND MONITOR CAPILLARY Specime n Type: CAPILLARY Comment: Test performed by: [id number] Meter #: [id number] Ordering Provider: FRANCK TURNER Report Released Date/Time: Sep 09, 2024 08:17 AM Reporting Lab: [address] [address] Performing Lab: [address] [address] GLUCOSE-HAND MONITOR 112 mg/dL H Sep 08, 2024 09:13 PM [facility] GLUCOSE-HAND MONITOR CAPILLARY Specime n Type: CAPILLARY Comment: Test performed by: [id number] Meter #: [id number] Ordering Provider: FRANCK TURNER Report Released Date/Time: Sep 08, 2024 09:31 PM Reporting Lab: [address] [address] Performing Lab: [address] [address] GLUCOSE-HAND MONITOR 107 mg/dL H Sep 08, 2024 03:49 PM [facility] GLUCOSE-HAND MONITOR CAPILLARY Specime n Type: CAPILLARY Comment: AAMIR RN notified Test performed by: [id number] Meter #: [id number] Ordering Provider: FRANCK TURNER Report Released Date/Time: Sep 08, 2024 04:33 PM Reporting Lab: [address] [address] Performing Lab: [address] [address] GLUCOSE-HAND MONITOR 162 mg/dL H Sep 08, 2024 11:43 AM [facility] GLUCOSE-HAND MONITOR CAPILLARY Specime n Type: CAPILLARY Comment: AAMIR RN notified Test performed by: [id number] Meter #: [id number] Ordering Provider: FRANCK TURNER Report Released Date/Time: Sep 08, 2024 12:03 PM Reporting Lab: [address] [address] Performing Lab: [address] [address] GLUCOSE-HAND MONITOR 133 mg/dL H Sep 08, 2024 06:13 AM [facility] GLUCOSE-HAND MONITOR CAPILLARY Specime n Type: CAPILLARY Comment: Test performed by: [id number] Meter #: [id number] Ordering Provider: FRANCK TURNER Report Released Date/Time: Sep 08, 2024 06:46 AM Reporting Lab: [address] [address] Performing Lab: [address] [address] GLUCOSE-HAND MONITOR 104 mg/dL H Sep 07, 2024 07:59 PM [facility] GLUCOSE-HAND MONITOR CAPILLARY Specime n Type: CAPILLARY Comment: Test performed by: [id number] Meter #: [id number] Ordering Provider: FRANCK TURNER Report Released Date/Time: Sep 07, 2024 09:05 PM Reporting Lab: [address] [address] Performing Lab: [address] [address] GLUCOSE-HAND MONITOR 107 mg/dL H Sep 07, 2024 04:39 PM [facility] GLUCOSE-HAND MONITOR CAPILLARY Specime n Type: CAPILLARY Comment: Test performed by: [id number] Meter #: [id number] Ordering Provider: FRANCK TURNER Report Released Date/Time: Sep 07, 2024 05:09 PM Reporting Lab: [address] [address] Performing Lab: [address] [address] GLUCOSE-HAND MONITOR 105 mg/dL H Sep 07, 2024 11:41 AM [facility] GLUCOSE-HAND MONITOR CAPILLARY Specime n Type: CAPILLARY Comment: Test performed by: [id number] Meter #: [id number] Ordering Provider: FRANCK TURNER Report Released Date/Time: Sep 07, 2024 12:41 PM Reporting Lab: [address] [address] Performing Lab: [address] [address] GLUCOSE-HAND MONITOR 144 mg/dL H Sep 07, 2024 05:56 AM [facility] GLUCOSE-HAND MONITOR CAPILLARY Specime n Type: CAPILLARY Comment: Test performed by: [id number] Meter #: [id number] Ordering Provider: FRANCK TURNER Report Released Date/Time: Sep 07, 2024 06:31 AM Reporting Lab: [address] [address] Performing Lab: [address] [address] GLUCOSE-HAND MONITOR 96 mg/dL Sep 06, 2024 08:10 PM [facility] GLUCOSE-HAND MONITOR CAPILLARY Specime n Type: CAPILLARY Comment: Test performed by: [id number] Meter #: [id number] Ordering Provider: FRANCK TURNER Report Released Date/Time: Sep 06, 2024 08:52 PM Reporting Lab: [address] [address] Performing Lab: [address] [address] GLUCOSE-HAND MONITOR 124 mg/dL H Sep 06, 2024 04:27 PM [facility] GLUCOSE-HAND MONITOR CAPILLARY Specime n Type: CAPILLARY Comment: Test performed by: [id number] Meter #: [id number] Ordering Provider: FRANCK TURNER Report Released Date/Time: Sep 06, 2024 05:15 PM Reporting Lab: [address] [address] Performing Lab: [address] [address] GLUCOSE-HAND MONITOR 107 mg/dL H Sep 06, 2024 12:12 PM [facility] GLUCOSE-HAND MONITOR CAPILLARY Specime n Type: CAPILLARY Comment: Test performed by: [id number] Meter #: [id number] Ordering Provider: FRANCK TURNER Report Released Date/Time: Sep 06, 2024 12:29 PM Reporting Lab: [address] [address] Performing Lab: [address] [address] GLUCOSE-HAND MONITOR 181 mg/dL H -Sep 06, 2024 06:13 AM [facility] GLUCOSE-HAND MONITOR CAPILLARY Specime n Type: CAPILLARY Comment: Test performed by: [id number] Meter #: [id number] Ordering Provider: FRANCK TURNER Report Released Date/Time: Sep 06, 2024 06:36 AM Reporting Lab: [address] [address] Performing Lab: [address] [address] GLUCOSE-HAND MONITOR 102 mg/dL H Sep 05, 2024 08:47 PM [facility] GLUCOSE-HAND MONITOR CAPILLARY Specime n Type: CAPILLARY Comment: Test performed by: [id number] Meter #: [id number] Ordering Provider: FRANCK TURNER Report Released Date/Time: Sep 06, 2024 02:13 AM Reporting Lab: [address] [address] Performing Lab: [address] [address] GLUCOSE-HAND MONITOR 103 mg/dL H Sep 05, 2024 04:40 PM [facility] GLUCOSE-HAND MONITOR CAPILLARY Specime n Type: CAPILLARY Comment: AAMIR RN notified Test performed by: [id number] Meter #: [id number] Ordering Provider: FRANCK TURNER Report Released Date/Time: Sep 05, 2024 05:11 PM Reporting Lab: [address] [address] Performing Lab: [address] [address] GLUCOSE-HAND MONITOR 113 mg/dL H Sep 05, 2024 12:06 PM [facility] GLUCOSE-HAND MONITOR CAPILLARY Specime n Type: CAPILLARY Comment: Test performed by: [id number] Meter #: [id number] Ordering Provider: FRANCK TURNER Report Released Date/Time: Sep 05, 2024 12:23 PM Reporting Lab: [address] [address] Performing Lab: [address] [address] GLUCOSE-HAND MONITOR 115 mg/dL H Sep 05, 2024 06:26 AM [facility] GLUCOSE-HAND MONITOR CAPILLARY Specime n Type: CAPILLARY Comment: AAMIR Correction Dose Test performed by: [id number] Meter #: [id number] Ordering Provider: FRANCK TURNER Report Released Date/Time: Sep 05, 2024 06:43 AM Reporting Lab: [address] [address] Performing Lab: [address] [address] GLUCOSE-HAND MONITOR 111 mg/dL H Sep 04, 2024 08:59 PM [facility] GLUCOSE-HAND MONITOR CAPILLARY Specime n Type: CAPILLARY Comment: AAMIR RN notified Test performed by: [id number] Meter #: [id number] Ordering Provider: FRANCK TURNER Report Released Date/Time: Sep 04, 2024 09:36 PM Reporting Lab: [address] [address] Performing Lab: [address] [address] GLUCOSE-HAND MONITOR 123 mg/dL H Sep 04, 2024 04:41 PM [facility] GLUCOSE-HAND MONITOR CAPILLARY Specime n Type: CAPILLARY Comment: AAMIR RN notified Test performed by: [id number] Meter #: [id number] Ordering Provider: FRANCK TURNER Report Released Date/Time: Sep 04, 2024 05:03 PM Reporting Lab: [address] [address] Performing Lab: [address] [address] GLUCOSE-HAND MONITOR 118 mg/dL H Sep 04, 2024 12:36 PM [facility] GLUCOSE-HAND MONITOR CAPILLARY Specime n Type: CAPILLARY Comment: AAMIR RN notified Test performed by: [id number] Meter #: [id number] Ordering Provider: FRANCK TURNER Report Released Date/Time: Sep 04, 2024 12:53 PM Reporting Lab: [address] [address] Performing Lab: [place] [address] GLUCOSE-HAND MONITOR 129 mg/dL H 71-99 Sep 04, 2024 12:03 PM [facility] RESPIRATORY VIRUS PANEL (BIOFIRE) NASOPHARYN X Specimen Type: NASOPHARYNX Comment: ~For Test: RESPIRATORY VIRUS PANEL (BIOFIRE) ~ORDER READ BACK TO: FRANCK TURNER 09/04/24@11:30 Ordering Provider: FRANCK TURNER Report Released Date/Time: Sep 04, 2024 11:33 AM Reporting Lab: [place] [phone] Performing Lab: [place] [phone] ADENOVIRUS (BIOFIRE) Not Detected -Not D etected [...] -Not Detected Sep 04, 2024 06:55 AM [facility] MAGNESIUM PLASMA [...] Lab: [place] [facility] [address] [facility] [address] Performing Lab: [place] [id number] [facility] [address] MAGNESIUM 1.8 mg/dL 1.6-2.6 Sep 04, 2024 [...] Sep 03, 2024 11:10 AM Reporting Lab: [address] [address] Performing Lab: [address] CREATININE 0.75 mg/dL 0.72-1.25 UREA [...] n Type: CAPILLARY Comment: Test performed by: [id number] Meter #: [id number] Ordering Provider: FRANCK TURNER Report Released Date/Time: Sep 04, 2024 06:28 AM Reporting Lab: [address] Performing Lab: [address] GLUCOSE-HAND MONITOR 114 mg/dL H 71-99 Sep 03, 2024 05:19 PM [facility] GLUCOSE-HAND MONITOR CAPILLARY Specime n Type: CAPILLARY Comment: Test performed by: [id number] Meter #: [id number] Ordering Provider: FRANCK TURNER Report Released Date/Time: Sep 03, 2024 05:37 PM Reporting Lab: [address] Performing Lab: [address] [address] GLUCOSE-HAND MONITOR 124 mg/dL H 71-99 Sep 03, 2024 04:41 PM [facility] GLUCOSE-HAND MONITOR CAPILLARY Specime n Type: CAPILLARY Comment: Test performed by: [id number] Meter #: [id number] Ordering Provider: FRANCK TURNER Report Released Date/Time: Sep 03, 2024 06:09 PM Reporting Lab: [address] [address] Performing Lab: [address] [address] GLUCOSE-HAND MONITOR 112 mg/dL H 71-99 Sep 03, 2024 01:35 PM [facility] URINE LYTES URINE Specimen Type : URINE Comment: ~Altered mental status with no identifiable cause Ordering Provider: FRANCK TURNER Report Released Date/Time: Sep 02, 2024 04:44 PM Reporting Lab: [address] [address] Performing Lab: [address] [address] SODIUM 130 mmol/L POTASSIUM 47.6 mmol/L CHLORIDE 137 mmol/L Sep 03, 2024 01:35 PM [facility] CREATININE URINE Specimen Type: URINE Comment: ~Altered mental status with no identifiable cause Ordering Provider: FRANCK TURNER Report Released Date/Time: Sep 02, 2024 04:44 PM Reporting Lab: [address] [address] Performing Lab: [address] [address] CREATININE 150.9 mg/dL Sep 03, 2024 01:35 PM [facility] OSMOLALITY URINE Specimen Type: URINE Comment: ~Altered mental status with no identifiable cause Ordering Provider: FRANCK TURNER Report Released Date/Time: Sep 02, 2024 04:44 PM Reporting Lab: [address] [address] Performing Lab: [address] [address] OSMOLALITY 522 mosm/kg 38-1400 Sep 03, 2024 01:35 PM [facility] UREA NITROGEN URINE Specimen Type : URINE Comment: ~Altered mental status with no identifiable cause Ordering Provider: FRANCK TURNER Report Released Date/Time: Sep 02, 2024 04:44 PM Reporting Lab: [address] [address] Performing Lab: [address] [address] UREA NITROGEN 320 mg/dL Sep 03, 2024 01:35 PM [facility] URINALYSIS WITH REFLEX TO CULTURE URINE Specimen Type: URINE Comment: ~Altered mental status with no identifiable cause Ordering Provider: FRANCK TURNER Report Released Date/Time: Sep 02, 2024 04:44 PM Reporting Lab: [address] [address] Performing Lab: [address] [address] URINE COLOR Yellow Colorless-Yellow APPEARANCE CLOUDY H [...] H 0-28 Sep 03, 2024 11:58 AM [facility] GLUCOSE-HAND MONITOR CAPILLARY Specime n Type: CAPILLARY Comment: AAMIR RN notified Test performed by: [id number] Meter #: [id number] Ordering Provider: FRANCK TURNER Report Released Date/Time: Sep 03, 2024 12:15 PM Reporting Lab: [address] [address] Performing Lab: [address] [address] GLUCOSE-HAND MONITOR 135 mg/dL H Sep 03, 2024 07:09 AM [facility] GLUCOSE-HAND MONITOR CAPILLARY Specime n Type: CAPILLARY Comment: Test performed by: [id number] Meter #: [id number] Ordering Provider: FRANCK TURNER Report Released Date/Time: Sep 03, 2024 07:26 AM Reporting Lab: [address] [address] Performing Lab: [address] [address] GLUCOSE-HAND MONITOR 120 mg/dL H -Sep 03, 2024 07:05 AM [facility] CBC/PLT BLOOD Specimen Type: BLOOD No comment entered. Ordering Provider: FRANCK TURNER Report Released Date/Time: Sep 02, 2024 04:29 PM Reporting Lab: [facility] [address] [place] [address] Performing Lab: [address] [address] WBC 6.9 10*3/uL 5.0-10.0 RBC 3.48 10*6/uL [...] Sep 02, 2024 04:29 PM Reporting Lab: [address] [address] Performing Lab: [address] [address] CREATININE 0.82 mg/dL 0.72-1.25 UREA NITROGEN 12 [...] Sep 02, 2024 04:29 PM Reporting Lab: [address] [address] Performing Lab: [address] [address] MAGNESIUM 1.7 mg/dL 1.6-2.6 Sep 03, 2024 07:05 AM [facility] GLYCOHEMOGLOBIN BLOOD Specimen Type: BLOOD Comment: Prediabetes: 5.7%-6.4% Diabetes: >= 6.5% MD-DoD guidelines for A1c interpretation: Glycemic control targets [...] 8.73 and 9.27. Ref: https://ngsp.org/CAPdata.asp. The in-house TORIA-Spectral Image D-100 analyzer has a historical CV <= 2%. Contact the laboratory for further performance characteristics of this assay. Ordering Provider: FRANCK TURNER Report Released Date/Time: Sep 02, 2024 04:29 PM Reporting Lab: [address] [address] Performing Lab: [place] [phone] GLYCOHEMOGLOBIN 5.6 4.4-5.6 Sep 03, 2024 07:05 AM [facility] OSMOLALITY SERUM Specimen Type: SERUM No comment entered. Ordering Provider: FRANCK TURNER Report Released Date/Time: Sep 02, 2024 04:44 PM Reporting Lab: [address] [address] Performing Lab: [address] [address] OSMOLALITY 271 mosm/kg L 280-300 Sep 02, 2024 08:15 PM [facility] GLUCOSE-HAND MONITOR CAPILLARY Specime n Type: CAPILLARY Comment: AAMIR DEXTER notified Test performed by: [id number] Meter #: [id number] Ordering Provider: FRANCK TURNER Report Released Date/Time: Sep 02, 2024 08:57 PM Reporting Lab: [address] [address] Performing Lab: [address] [address] GLUCOSE-HAND MONITOR 126 mg/dL H 71-99 Sep [...] Sep 02, 2024 05:12 PM Reporting Lab: [address] [address] Performing Lab: [address] [address] MRSA SURVL NARES DNA Negative Negative Sep 02, 2024 05:36 PM [facility] GLUCOSE-HAND MONITOR CAPILLARY Specime n Type: CAPILLARY Comment: Test performed by: [id number] Meter #: [id number] Ordering Provider: FRANCK TURNER Report Released Date/Time: Sep 02, 2024 05:53 PM Reporting Lab: [address] [address] Performing Lab: [address] [address] GLUCOSE-HAND MONITOR 127 mg/dL H 71-99 Aug 29, 2024 10:04 PM [facility] URINALYSIS WITH REFLEX TO CULTURE URINE Specimen Type: URINE Comment: ~For Test: URINALYSIS WITH REFLEX TO CULTURE ~REORDER Ordering Provider: FELISA COLE Report Released Date/Time: Aug 29, 2024 09:36 PM Reporting Lab: [address] [address] Performing Lab: [address] [address] URINE COLOR Yellow Colorless-Yellow APPEARANCE Clear Clear [...] Aug 29, 2024 07:55 PM Reporting Lab: [address] [address] Performing Lab: [address] [address] HIGH SENSITIVITY TROPONIN I 7 4-35 Aug 29, 2024 08:32 PM [facility] CBC/PLT BLOOD Specimen Type: BLOOD No comment entered. Ordering Provider: FELISA COLE Report Released Date/Time: Aug 29, 2024 07:55 PM Reporting Lab: [address] [address] Performing Lab: [address] [address] WBC 11.2 10*3/uL H 5.0-10.0 RBC 3.97 [...] Aug 29, 2024 07:55 PM Reporting Lab: [address] [address] Performing Lab: [address] [address] CREATININE 0.85 mg/dL 0.72-1.25 UREA NITROGEN 15 [...] 05, 2024 11:09 PM 0 [place] [facility] Sep 05, 2024 08:46 PM 98.0 F 72 /min 145/67 mm[Hg] 18 /min 96 % [facility] Sep 05, 2024 04:39 PM 97.7 F 67 /min 115/63 mm[Hg] 17 /min 94 % 0 [place] Sep 05, 2024 12:47 PM 4 [place] Sep 05, 2024 12:21 PM 5 [place] [facility] Advance [...] 08, 2024 ADVANCE DIRECTIVE DISCUSSION [facility] Radiology Reports: +/- 30 days of [...] BRAIN W & W/O: LUIS MANUEL PERDOMO [id number] -1945 M Exm Date: SEP 06, 2024@13:40 Req Phys: FRANCK TURNER Loc: 5-MED/TEL/09-06-2024@19:09 Img Loc: [facility] Service: [place] [address] (Case [id number] COMPLETE) MRI BRAIN W & W/O (MRI Detailed) CPT:59642 Contrast Media : Gadolinium Reason for Study: SEE CLINICAL HISTORY Pharmaceutical: GADOTERIDOL 279.3MG/ML 20ML INJ, 19ml Clinical History: MRI Screening (Required): IMPLANTED DEVICE DOCUMENTATION IMPLANTED DEVICE DOCUMENTATION NOT FOUND Does the Bigelow have any Cardiac Implants? None Does the have any implanted stimulators? None Does the have cochlear implants? No Does the Bigelow have Cerebral aneurysm clip(s)? I don't know Does the have any shrapnel? I don't know If yes, where in your body? Please list other implants not listed above: MRI table has a weight limit of 551 lbs. Bigelow's Weight: *212 lb [96.16 kg] (09/04/2024 05:19) Is this patient claustrophobic?: No REASON FOR EXAM:MULTIPLE SCLEROSIS (indicate suspected or established) PERTINENT PATIENT HISTORY: MS c/f for flare Risk factors for GADOLINIUM NEPHROGENIC SYSTEMIC SCLEROSIS: Report Status: Verified Date Reported: SEP 06, 2024 Date Verified: SEP 06, 2024 Delivery Mgr E-Sig: Report: MRI brain without and with [...] Staff: ARCENIO LEYVA, Staff Radiologist Verified by corrosion control technician for ARCENIO LEYVA /ARCENIO AVILA-[facility] Sep 06, 2024 01:40 PM MRI C SPINE W & W/ O CONTRAST(FURTHER SEQUENCES): LUIS MANUEL PERDOMO [id number] -1945 M Exm Date: SEP 06, 2024@13:40 Req Phys: FRANCK TURNERSav Cuevas Loc: 5-MED/TEL/09-07-2024@06:42 Img Loc: [facility] Service: [facility] [place] [id number] (Case [id number] COMPLETE) MRI C SPINE W & W/O CONTRAST(FURT(MRI Detailed) CPT:67981 Contrast Media : Gadolinium Reason for Study: SEE CLINICAL HISTORY Pharmaceutical: GADOTERIDOL 279.3MG/ML 20ML INJ, 19ml Clinical History: STATUS OF PLAIN FILMS:Not performed (Provide justification for MR W/O prior plain films below.) MRI for MS MRI Screening (Required): IMPLANTED DEVICE DOCUMENTATION IMPLANTED DEVICE DOCUMENTATION NOT FOUND Does the Bigelow have any Cardiac Implants? None Does the Bigelow have any implanted stimulators? None Does the have cochlear implants? No Does the have Cerebral aneurysm clip(s)? I don't know Does the Bigelow have any shrapnel? I don't know If yes, where in your body? Please list other implants not listed above: MRI table has a weight limit of 551 lbs. Bigelow's Weight: *212 lb [96.16 kg] (09/04/2024 05:19) Is this patient claustrophobic?: No REASON FOR EXAM: MULTIPLE SCLEROSIS (indicate suspected or established) PERTINENT PATIENT HISTORY: MS c/f flare Risk factors for GADOLINIUM NEPHROGENIC SYSTEMIC SCLEROSIS: Report Status: Verified Date Reported: SEP 07, 2024 Date Verified: SEP 07, 2024 Delivery Mgr E-Sig: Report: EXAMINATION: MRI OF THE CERVICAL [...] Interpreting Staff: HUANG TAI, Radiologist Verified by corrosion control technician for HUANG TAI /HUANG WHEATLEY-Sav [facility] Sep 03, 2024 10:45 AM CHEST SINGLE(1) EW: LUIS MANUEL PERDOMO [id number] -1945 M Exm Date: SEP 03, 2024@10:45 Req Phys: FRANCK TURNER Pat Loc: 5-MED/TEL/09-03-2024@10:56 Img Loc: [facility] Service: [place] [address] (Case [id number] COMPLETE)CHEST SINGLE(1) VIEW (RAD Detailed) CPT:42560 Proc Modifiers : PORTABLE EXAM Reason for Study: Eval volume status Clinical History: Report Status: Verified Date Reported: SEP 03, 2024 Date Verified: SEP 03, 2024 Delivery Mgr E-Sig: Report: EXAMINATION: SINGLE VIEW CHEST CLINICAL [...] Interpreting Staff: HUANG TAI, Radiologist Verified by corrosion control technician for HUANG TAI /HUANG WHEATLEY-Sav [facility] Aug 29, 2024 08:[address] HEAD W/O CONT: LUIS MANUEL PERDOMO [id number] -1945 M Exm Date: AUG 29, 2024@20:28 Req Phys: FELISA COLE Loc: ED/4P-12A (Req'g Loc) Img Loc: CT SCAN Service: [place] [address] (Case [id number] COMPLETE) CT HEAD W/O CONT (CT Detailed) CPT:07564 Reason for Study: SEE CLINICAL HISTORY Clinical History: REASON FOR SEND OUT: ATTENDING PHYSICIAN NAME: New transient neurological s/s - suspected TIA HISTORY/REASON FOR EXAM: confusion Report Status: Verified Date Reported: AUG 29, 2024 Date Verified: AUG 29, 2024 Delivery Mgr E-Sig: Report: HISTORY confusion COMPARISON No prior [...] Staff: ABDIRAHMAN CROW, Staff Physician Verified by corrosion control technician for ABDIRAHMAN CROW /[facility] Pathology Reports: +/- 30 days of [...] Reporting Lab: [facility] [CLIA# [id number]] [address] [place] [id number] Accession [UID]: [id number] [[id number]] Received: Sep 03, 2024@14:02 Collection sample: URINE, [...] Performed By: [facility] [CLIA# [id number]] [address] [place] [id number] [facility] Sep 02, 2024 06:00 PM LR MICROBIOLOGY RE PORT: Reporting Lab: [facility] [CLIA# [id number]] [address] [place], [place] [id number] Accession [UID]: [id number] [[id number]] Received: Sep 02, 2024@18:07 Collection sample: BLD CULTURE BOTTLES Collection date: Sep 02, 2024 18:00 Site/Specimen: BLOOD Provider: FRANCK TURNER Comment on specimen: L HAND Test(s) ordered: CULTURE, BLOOD................ completed: Sep 08, 2024 * BACTERIOLOGY FINAL REPORT => Sep 08, 2024 08:25 TECH CODE: [id number] Bacteriology Remark(s): Blood culture status=NO GROWTH (unless notified otherwise) 09/03/2024 AEROBIC: NO GROWTH ANAEROBIC: NO GROWTH =--=--=--=--=--=--=--=--=--=-- =--=--=--=--=--=--=--=--=--=-- =--=--=--=--=--=-- Performing Laboratory: Bacteriology Report Performed By: [facility] [CLIA# [id number]] [address] [place], [place] [id number] [facility] Aug 29, 2024 10:18 PM LR MICROBIOLOGY RE PORT: Reporting Lab: [facility] [CLIA# [id number]] [address] [place], [place] [id number] Accession [UID]: [id number] [[id number]] Received: Aug 29, 2024@22:18 Collection sample: URINE, CLEAN CATCH Collection date: Aug 29, 2024 22:18 Site/Specimen: URINE Provider: FELISA COLE Test(s) ordered: CULTURE, URINE................ completed: Aug 31, 2024 09:51 * BACTERIOLOGY FINAL REPORT => Aug 31, 2024 09:51 TECH CODE: [id number] Bacteriology Remark(s): NO GROWTH 08/30/2024 <10,000 CFU/ML. 08/31/2024 =--=--=--=--=--=--=--=--=--=-- =--=--=--=--=--=--=--=--=--=-- =--=--=--=--=--=-- Performing Laboratory: Bacteriology Report Performed By: [facility] [IA# [id number]] [address] [place] [address] MAG[facility]
--- OUTSIDE RECORDS SUMMARY | 2024-09-05 19:07 | XMS_ITS ---
[place] DAILY HOSPITALIZATION DATA [facility] Encounter Summary Created on: September 22, 2024 LUIS MANUEL PERDOMO : 1945 Sex: Male Author Name [facility] Organization [facility] Address [address] [place] [address] Care Team Providers Care Stitcher Special Machine Name Role Phone YULISSA HENDERSON Primary [...] PLAN F Mar 24, 2014 PLAN F [id number] [phone] LUIS MANUEL PERDOMO PATIENT [facility] PREFERRED PROVIDER ORGANIZAT ION (PPO) [facility] SLE Sep 21, 2012 [id number] LUIS MANUEL PERDOMO PATIENT [employer] ([id number]) PRESCRIPT ION WL3A Sep 21, 2012 [id number] LUIS MANUEL PERDOMO PATIENT MEDICARE (WNR) MEDICARE (M) PART B Sep 21, 2012 PART B [id number] NOEMI PERDOMO PATIENT MEDICARE (WNR) MEDICARE (M) PART A Jan 22, 2011 PART A [id number] LEANNE, NOEMI PATIENT MEDICARE PART D (WNR) MEDICARE (M) PART D Mar 24, 2014 PART D [id number] LUIS MANUEL PERDOMO PATIENT Selected Encounter This section includes the information on record at CT for the Encounter. Date/Time Encounter Type Encounter Description Reason Pro vider Source Sep 05, 2024 11:07 PM Inpatient Visit DAILY HOSPITALIZATION DATA [facility] Encounter Template Text not used by CT Plan of Treatment: Future Appointments (+ 6 months) and Future Tests (+/- 45 days) The Plan of Treatment section includes future care activities for the [facility]. This section includes future appointments and [...] 2024 08:00 AM AMBULATORY - NONE [facility] Sep 30, 2024 01:30 PM AMBULATORY [...] theEncounter. The data comes from all [facility] facilities. Test Date/Time Test Type Test Details Facility Name Sep 13, 2024 01:33 PM Consult Order [facility] SKILL[facility] HOME CARE Cons Health Information Director's Choice [facility] Lab Results: +/- 30 days of the encounter This section includes the Chemistry and Hematology Lab Results on record with CT for the patient. Radiology Reports and Pathology Reports are provided separately, in subsequent sections. Lab Results This section contains the Chemistry/Hematology Results that were resulted 30 days before or 30 daysafter the date of the Encounter. Date/Time Source Result Type Result - Unit Interpretation Reference Range Specimen Type Comment Sep 09, 2024 12:16 PM [facility] GLUCOSE-HAND MONITOR CAPILLARY Specimen Type: CAPILLARY Comment: Test performed by: [id number] Meter #: [id number] Ordering Provider: FRANCK TURNER Report Released Date/Time: Sep 09, 2024 12:33 PM Reporting Lab: [address] [address] Performing Lab: [address] [address] GLUCOSE-HAND MONITOR 116 mg/dL H Sep 09, 2024 06:07 AM [facility] GLUCOSE-HAND MONITOR CAPILLARY Specime n Type: CAPILLARY Comment: Test performed by: [id number] Meter #: [id number] Ordering Provider: FRANCK TURNER Report Released Date/Time: Sep 09, 2024 08:17 AM Reporting Lab: [address] [address] Performing Lab: [address] [address] GLUCOSE-HAND MONITOR 112 mg/dL H Sep 08, 2024 09:13 PM [facility] GLUCOSE-HAND MONITOR CAPILLARY Specime n Type: CAPILLARY Comment: Test performed by: [id number] Meter #: [id number] Ordering Provider: FRANCK TURNER Report Released Date/Time: Sep 08, 2024 09:31 PM Reporting Lab: [address] [address] Performing Lab: [address] [address] GLUCOSE-HAND MONITOR 107 mg/dL H Sep 08, 2024 03:49 PM [facility] GLUCOSE-HAND MONITOR CAPILLARY Specime n Type: CAPILLARY Comment: AAMIR RN notified Test performed by: [id number] Meter #: [id number] Ordering Provider: FRANCK TURNER Report Released Date/Time: Sep 08, 2024 04:33 PM Reporting Lab: [address] [address] Performing Lab: [address] [address] GLUCOSE-HAND MONITOR 162 mg/dL H Sep 08, 2024 11:43 AM [facility] GLUCOSE-HAND MONITOR CAPILLARY Specime n Type: CAPILLARY Comment: AAMIR RN notified Test performed by: [id number] Meter #: [id number] Ordering Provider: FRANCK TURNER Report Released Date/Time: Sep 08, 2024 12:03 PM Reporting Lab: [address] [address] Performing Lab: [address] [address] GLUCOSE-HAND MONITOR 133 mg/dL H Sep 08, 2024 06:13 AM [facility] GLUCOSE-HAND MONITOR CAPILLARY Specime n Type: CAPILLARY Comment: Test performed by: [id number] Meter #: [id number] Ordering Provider: FRANCK TURNER Report Released Date/Time: Sep 08, 2024 06:46 AM Reporting Lab: [address] [address] Performing Lab: [address] [address] GLUCOSE-HAND MONITOR 104 mg/dL H Sep 07, 2024 07:59 PM [facility] GLUCOSE-HAND MONITOR CAPILLARY Specime n Type: CAPILLARY Comment: Test performed by: [id number] Meter #: [id number] Ordering Provider: FRANCK TURNER Report Released Date/Time: Sep 07, 2024 09:05 PM Reporting Lab: [address] [address] Performing Lab: [address] [address] GLUCOSE-HAND MONITOR 107 mg/dL H Sep 07, 2024 04:39 PM [facility] GLUCOSE-HAND MONITOR CAPILLARY Specime n Type: CAPILLARY Comment: Test performed by: [id number] Meter #: [id number] Ordering Provider: FRANCK TURNER Report Released Date/Time: Sep 07, 2024 05:09 PM Reporting Lab: [address] [address] Performing Lab: [address] [address] GLUCOSE-HAND MONITOR 105 mg/dL H Sep 07, 2024 11:41 AM [facility] GLUCOSE-HAND MONITOR CAPILLARY Specime n Type: CAPILLARY Comment: Test performed by: [id number] Meter #: [id number] Ordering Provider: FRANCK TURNER Report Released Date/Time: Sep 07, 2024 12:41 PM Reporting Lab: [address] [address] Performing Lab: [address] [address] GLUCOSE-HAND MONITOR 144 mg/dL H Sep 07, 2024 05:56 AM [facility] GLUCOSE-HAND MONITOR CAPILLARY Specime n Type: CAPILLARY Comment: Test performed by: [id number] Meter #: [id number] Ordering Provider: FRANCK TURNER Report Released Date/Time: Sep 07, 2024 06:31 AM Reporting Lab: [address] [address] Performing Lab: [address] [address] GLUCOSE-HAND MONITOR 96 mg/dL Sep 06, 2024 08:10 PM [facility] GLUCOSE-HAND MONITOR CAPILLARY Specime n Type: CAPILLARY Comment: Test performed by: [id number] Meter #: [id number] Ordering Provider: FRANCK TURNER Report Released Date/Time: Sep 06, 2024 08:52 PM Reporting Lab: [address] [address] Performing Lab: [address] [address] GLUCOSE-HAND MONITOR 124 mg/dL H Sep 06, 2024 04:27 PM [facility] GLUCOSE-HAND MONITOR CAPILLARY Specime n Type: CAPILLARY Comment: Test performed by: [id number] Meter #: [id number] Ordering Provider: FRANCK TURNER Report Released Date/Time: Sep 06, 2024 05:15 PM Reporting Lab: [address] [address] Performing Lab: [address] [address] GLUCOSE-HAND MONITOR 107 mg/dL H Sep 06, 2024 12:12 PM [facility] GLUCOSE-HAND MONITOR CAPILLARY Specime n Type: CAPILLARY Comment: Test performed by: [id number] Meter #: [id number] Ordering Provider: FRANCK TURNER Report Released Date/Time: Sep 06, 2024 12:29 PM Reporting Lab: [address] [address] Performing Lab: [address] [address] GLUCOSE-HAND MONITOR 181 mg/dL H -Sep 06, 2024 06:13 AM [facility] GLUCOSE-HAND MONITOR CAPILLARY Specime n Type: CAPILLARY Comment: Test performed by: [id number] Meter #: [id number] Ordering Provider: FRANCK TURNER Report Released Date/Time: Sep 06, 2024 06:36 AM Reporting Lab: [address] [address] Performing Lab: [address] [address] GLUCOSE-HAND MONITOR 102 mg/dL H Sep 05, 2024 08:47 PM [facility] GLUCOSE-HAND MONITOR CAPILLARY Specime n Type: CAPILLARY Comment: Test performed by: [id number] Meter #: [id number] Ordering Provider: FRANCK TURNER Report Released Date/Time: Sep 06, 2024 02:13 AM Reporting Lab: [address] [address] Performing Lab: [address] [address] GLUCOSE-HAND MONITOR 103 mg/dL H Sep 05, 2024 04:40 PM [facility] GLUCOSE-HAND MONITOR CAPILLARY Specime n Type: CAPILLARY Comment: AAMIR RN notified Test performed by: [id number] Meter #: [id number] Ordering Provider: FRANCK TURNER Report Released Date/Time: Sep 05, 2024 05:11 PM Reporting Lab: [address] [address] Performing Lab: [address] [address] GLUCOSE-HAND MONITOR 113 mg/dL H Sep 05, 2024 12:06 PM [facility] GLUCOSE-HAND MONITOR CAPILLARY Specime n Type: CAPILLARY Comment: Test performed by: [id number] Meter #: [id number] Ordering Provider: FRANCK TURNER Report Released Date/Time: Sep 05, 2024 12:23 PM Reporting Lab: [address] [address] Performing Lab: [address] [address] GLUCOSE-HAND MONITOR 115 mg/dL H Sep 05, 2024 06:26 AM [facility] GLUCOSE-HAND MONITOR CAPILLARY Specime n Type: CAPILLARY Comment: AAMIR Correction Dose Test performed by: [id number] Meter #: [id number] Ordering Provider: FRANCK TURNER Report Released Date/Time: Sep 05, 2024 06:43 AM Reporting Lab: [address] [address] Performing Lab: [address] [address] GLUCOSE-HAND MONITOR 111 mg/dL H Sep 04, 2024 08:59 PM [facility] GLUCOSE-HAND MONITOR CAPILLARY Specime n Type: CAPILLARY Comment: AAMIR RN notified Test performed by: [id number] Meter #: [id number] Ordering Provider: FRANCK TURNER Report Released Date/Time: Sep 04, 2024 09:36 PM Reporting Lab: [address] [address] Performing Lab: [address] [address] GLUCOSE-HAND MONITOR 123 mg/dL H Sep 04, 2024 04:41 PM [facility] GLUCOSE-HAND MONITOR CAPILLARY Specime n Type: CAPILLARY Comment: AAMIR RN notified Test performed by: [id number] Meter #: [id number] Ordering Provider: FRANCK TURNER Report Released Date/Time: Sep 04, 2024 05:03 PM Reporting Lab: [address] [address] Performing Lab: [address] [address] GLUCOSE-HAND MONITOR 118 mg/dL H Sep 04, 2024 12:36 PM [facility] GLUCOSE-HAND MONITOR CAPILLARY Specime n Type: CAPILLARY Comment: AAMIR RN notified Test performed by: [id number] Meter #: [id number] Ordering Provider: FRANCK TURNER Report Released Date/Time: Sep 04, 2024 12:53 PM Reporting Lab: [address] [address] Performing Lab: [place] [address] GLUCOSE-HAND MONITOR 129 mg/dL H 71-99 Sep 04, 2024 12:03 PM [facility] RESPIRATORY VIRUS PANEL (BIOFIRE) NASOPHARYN X Specimen Type: NASOPHARYNX Comment: ~For Test: RESPIRATORY VIRUS PANEL (BIOFIRE) ~ORDER READ BACK TO: FRANCK TURNER 09/04/24@11:30 Ordering Provider: FRANCK TURNER Report Released Date/Time: Sep 04, 2024 11:33 AM Reporting Lab: [place] [phone] Performing Lab: [place] [phone] ADENOVIRUS (BIOFIRE) Not Detected -Not D etected [...] -Not Detected Sep 04, 2024 06:55 AM [facility] MAGNESIUM PLASMA [...] 2024 11:10 AM Reporting Lab: [place] [facility] [address] [facility] [address] Performing Lab: [place] [address] [facility] [address] MAGNESIUM 1.8 mg/dL 1.6-2.6 Sep 04, 2024 [...] Sep 03, 2024 11:10 AM Reporting Lab: [address] [address] Performing Lab: [address] CREATININE 0.75 mg/dL 0.72-1.25 UREA NITROGEN [...] n Type: CAPILLARY Comment: Test performed by: [id number] Meter #: [id number] Ordering Provider: FRANCK TURNER Report Released Date/Time: Sep 04, 2024 06:28 AM Reporting Lab: [address] Performing Lab: [address] GLUCOSE-HAND MONITOR 114 mg/dL H 71-99 Sep 03, 2024 05:19 PM [facility] GLUCOSE-HAND MONITOR CAPILLARY Specime n Type: CAPILLARY Comment: Test performed by: [id number] Meter #: [id number] Ordering Provider: FRANCK TURNER Report Released Date/Time: Sep 03, 2024 05:37 PM Reporting Lab: [address] Performing Lab: [address] [address] GLUCOSE-HAND MONITOR 124 mg/dL H 71-99 Sep 03, 2024 04:41 PM [facility] GLUCOSE-HAND MONITOR CAPILLARY Specime n Type: CAPILLARY Comment: Test performed by: [id number] Meter #: [id number] Ordering Provider: FRANCK TURNER Report Released Date/Time: Sep 03, 2024 06:09 PM Reporting Lab: [address] [address] Performing Lab: [address] [address] GLUCOSE-HAND MONITOR 112 mg/dL H 71-99 Sep 03, 2024 01:35 PM [facility] CREATININE URINE Specimen Type: URINE Comment: ~Altered mental status with no identifiable cause Ordering Provider: FRANCK TURNER Report Released Date/Time: Sep 02, 2024 04:44 PM Reporting Lab: [facility] [address] [place] [address] Performing Lab: [address] [address] CREATININE 150.9 mg/dL Sep 03, 2024 01:35 PM [facility] URINE LYTES URINE Specimen Type : URINE Comment: ~Altered mental status with no identifiable cause Ordering Provider: FRANCK TURNER Report Released Date/Time: Sep 02, 2024 04:44 PM Reporting Lab: [address] [address] Performing Lab: [address] [address] SODIUM 130 mmol/L POTASSIUM 47.6 mmol/L CHLORIDE 137 mmol/L Sep 03, 2024 01:35 PM [facility] UREA NITROGEN URINE Specimen Type : URINE Comment: ~Altered mental status with no identifiable cause Ordering Provider: FRANCK TURNER Report Released Date/Time: Sep 02, 2024 04:44 PM Reporting Lab: [address] [address] Performing Lab: [address] [address] UREA NITROGEN 320 mg/dL Sep 03, 2024 01:35 PM [facility] URINALYSIS WITH REFLEX TO CULTURE URINE Specimen Type: URINE Comment: ~Altered mental status with no identifiable cause Ordering Provider: FRANCK TURNER Report Released Date/Time: Sep 02, 2024 04:44 PM Reporting Lab: [address] [address] Performing Lab: [address] [address] URINE COLOR Yellow Colorless-Yellow APPEARANCE CLOUDY H [...] H 0-28 Sep 03, 2024 01:35 PM [facility] OSMOLALITY URINE Specimen Type: URINE Comment: ~Altered mental status with no identifiable cause Ordering Provider: FRANCK TURNER Report Released Date/Time: Sep 02, 2024 04:44 PM Reporting Lab: [place] [phone] Performing Lab: [place] [phone] OSMOLALITY 522 mosm/kg 38-1400 Sep 03, 2024 11:58 AM [facility] GLUCOSE-HAND MONITOR CAPILLARY Specime n Type: CAPILLARY Comment: AAMIR RN notified Test performed by: [id number] Meter #: [id number] Ordering Provider: FRANCK TURNER Report Released Date/Time: Sep 03, 2024 12:15 PM Reporting Lab: [address] [address] Performing Lab: [address] [address] GLUCOSE-HAND MONITOR 135 mg/dL H Sep 03, 2024 07:09 AM [facility] GLUCOSE-HAND MONITOR CAPILLARY Specime n Type: CAPILLARY Comment: Test performed by: [id number] Meter #: [id number] Ordering Provider: FRANCK TURNER Report Released Date/Time: Sep 03, 2024 07:26 AM Reporting Lab: [address] [address] Performing Lab: [address] [address] GLUCOSE-HAND MONITOR 120 mg/dL H Sep 03, 2024 07:05 AM [facility] CBC/PLT BLOOD Specimen Type: BLOOD No comment entered. Ordering Provider: FRANCK TURNER Report Released Date/Time: Sep 02, 2024 04:29 PM Reporting Lab: [address] [address] Performing Lab: [address] [address] WBC 6.9 10*3/uL 5.0-10.0 RBC 3.48 10*6/uL [...] Sep 02, 2024 04:29 PM Reporting Lab: [address] [address] Performing Lab: [address] [address] MAGNESIUM 1.7 mg/dL 1.6-2.6 Sep 03, 2024 [...] Sep 02, 2024 04:29 PM Reporting Lab: [address] [address] Performing Lab: [address] [address] CREATININE 0.82 mg/dL 0.72-1.25 UREA NITROGEN 12 [...] BLOOD Comment: Prediabetes: 5.7%-6.4% Diabetes: >= 6.5% [facility] guidelines for A1c interpretation: [...] 8.73 and 9.27. Ref: https://ngsp.org/CAPdata.asp. The in-house [employer]-Digital Orchid D-100 analyzer has a historical CV <= 2%. Contact the laboratory for further performance characteristics of this assay. Ordering Provider: FRANCK TURNER Report Released Date/Time: Sep 02, 2024 04:29 PM Reporting Lab: [address] [address] Performing Lab: [place] [phone] GLYCOHEMOGLOBIN 5.6 4.4-5.6 Sep 03, 2024 07:05 AM [facility] OSMOLALITY SERUM Specimen Type: SERUM No comment entered. Ordering Provider: FRANCK TURNER Report Released Date/Time: Sep 02, 2024 04:44 PM Reporting Lab: [address] [address] Performing Lab: [address] [address] OSMOLALITY 271 mosm/kg L 280-300 Sep 02, 2024 08:15 PM [facility] GLUCOSE-HAND MONITOR CAPILLARY Specime n Type: CAPILLARY Comment: AAMIR DEXTER notified Test performed by: [id number] Meter #: [id number] Ordering Provider: FRANCK TURNER Report Released Date/Time: Sep 02, 2024 08:57 PM Reporting Lab: [address] [address] Performing Lab: [address] [address] GLUCOSE-HAND MONITOR 126 mg/dL H 71-99 Sep [...] Sep 02, 2024 05:12 PM Reporting Lab: [address] [address] Performing Lab: [address] [address] MRSA SURVL NARES DNA Negative Negative Sep 02, 2024 05:36 PM [facility] GLUCOSE-HAND MONITOR CAPILLARY Specime n Type: CAPILLARY Comment: Test performed by: [id number] Meter #: [id number] Ordering Provider: FRANCK TURNER Report Released Date/Time: Sep 02, 2024 05:53 PM Reporting Lab: [address] [address] Performing Lab: [address] [address] GLUCOSE-HAND MONITOR 127 mg/dL H 71-99 Aug 29, 2024 10:04 PM [facility] URINALYSIS WITH REFLEX TO CULTURE URINE Specimen Type: URINE Comment: ~For Test: URINALYSIS WITH REFLEX TO CULTURE ~REORDER Ordering Provider: FELISA COLE Report Released Date/Time: Aug 29, 2024 09:36 PM Reporting Lab: [address] [address] Performing Lab: [address] [address] URINE COLOR Yellow Colorless-Yellow APPEARANCE Clear Clear [...] /[LPF] 0-28 Aug 29, 2024 08:32 PM [facility] TROPONIN I PLASMA Specimen [...] Aug 29, 2024 07:55 PM Reporting Lab: [address] [address] Performing Lab: [address] [address] HIGH SENSITIVITY TROPONIN I 7 4-35 Aug 29, 2024 08:32 PM [facility] CBC/PLT BLOOD Specimen Type: BLOOD No comment entered. Ordering Provider: FELISA COLE Report Released Date/Time: Aug 29, 2024 07:55 PM Reporting Lab: [address] [address] Performing Lab: [address] [address] WBC 11.2 10*3/uL H 5.0-10.0 RBC 3.97 10*6/uL L 4.6-6.2 HGB 10.9 g/dL L 14.0-18.0 HCT 33.5 L 42.0-52.0 MCV 84.4 fL 80.0-94.0 MCH 27.5 pg 27.0-31.0 MCHC 32.5 g/dL 32.0-36.0 PLT 230 10*3/uL 150-450 MPV 10.2 fL 9.0-13.1 RDW 14.6 11.0-16.0 NRBC 0.0 0.0-0.0 Aug 29, 2024 08:32 PM [facility] PANEL 5 PLASMA Specimen Type: PLASM [...] Aug 29, 2024 07:55 PM Reporting Lab: [address] [address] Performing Lab: [address] [address] CREATININE 0.85 mg/dL 0.72-1.25 UREA NITROGEN 15 [...] 05, 2024 11:09 PM 0 [place] [facility] Sep 05, 2024 08:46 PM 98.0 F 72 /min 145/67 mm[Hg] 18 /min 96 % [facility] Sep 05, 2024 04:39 PM 97.7 F 67 /min 115/63 mm[Hg] 17 /min 94 % 0 [place] Sep 05, 2024 12:47 PM 4 [place] [facility] Sep 05, 2024 12:21 PM 5 [place] Advance [...] 08, 2024 ADVANCE DIRECTIVE DISCUSSION [facility] Radiology Reports: +/- 30 days of [...] the Encounter. The data comes from all CT treatment facilities. Date/Time Radiology Report Provider Source Sep 06, 2024 01:40 PM MRI BRAIN W & W/O: LUIS MANUEL PERDOMO [id number] -1945 M Exm Date: SEP 06, 2024@13:40 Req Phys: FRANCK TURNER Loc: 5-MED/TEL/09-06-2024@19:09 Img Loc: [facility] Service: [place] [address] (Case [id number] COMPLETE) MRI BRAIN W & W/O (MRI Detailed) CPT:28932 Contrast Media : Gadolinium Reason for Study: SEE CLINICAL HISTORY Pharmaceutical: GADOTERIDOL 279.3MG/ML 20ML INJ, 19ml Clinical History: MRI Screening (Required): IMPLANTED DEVICE DOCUMENTATION IMPLANTED DEVICE DOCUMENTATION NOT FOUND Does the [place] have any Cardiac Implants? None Does the have any implanted stimulators? None Does the have cochlear implants? No Does the [place] have Cerebral aneurysm clip(s)? I don't know Does the have any shrapnel? I don't know If yes, where in your body? Please list other implants not listed above: MRI table has a weight limit of 551 lbs. [place]'s Weight: *212 lb [96.16 kg] (09/04/2024 05:19) Is this patient claustrophobic?: No REASON FOR EXAM:MULTIPLE SCLEROSIS (indicate suspected or established) PERTINENT PATIENT HISTORY: MS c/f for flare Risk factors for GADOLINIUM NEPHROGENIC SYSTEMIC SCLEROSIS: Report Status: Verified Date Reported: SEP 06, 2024 Date Verified: SEP 06, 2024 Manager Business Operations E-Sig: Report: MRI brain without and with [...] Staff: ARCENIO LEYVA, Staff Radiologist Verified by gym supervisor for ARCENIO LEYVA /ARCENIO AVILA-CD[facility] Sep 06, 2024 01:40 PM MRI C SPINE W & W/ O CONTRAST(FURTHER SEQUENCES): LUIS MANUEL PERDOMO [id number] -1945 M Exm Date: SEP 06, 2024@13:40 Req Phys: FRANCK TURNERSav Cuevas Loc: 5-MED/TEL/09-07-2024@06:42 Img Loc: [facility] Service: [facility] [place] [id number] (Case [id number] COMPLETE) MRI C SPINE W & W/O CONTRAST(FURT(MRI Detailed) CPT:33951 Contrast Media : Gadolinium Reason for Study: SEE CLINICAL HISTORY Pharmaceutical: GADOTERIDOL 279.3MG/ML 20ML INJ, 19ml Clinical History: STATUS OF PLAIN FILMS:Not performed (Provide justification for MR W/O prior plain films below.) MRI for MS MRI Screening (Required): IMPLANTED DEVICE DOCUMENTATION IMPLANTED DEVICE DOCUMENTATION NOT FOUND Does the [place] have any Cardiac Implants? None Does the [place] have any implanted stimulators? None Does the have cochlear implants? No Does the have Cerebral aneurysm clip(s)? I don't know Does the [place] have any shrapnel? I don't know If yes, where in your body? Please list other implants not listed above: MRI table has a weight limit of 551 lbs. [place]'s Weight: *212 lb [96.16 kg] (09/04/2024 05:19) Is this patient claustrophobic?: No REASON FOR EXAM: MULTIPLE SCLEROSIS (indicate suspected or established) PERTINENT PATIENT HISTORY: MS c/f flare Risk factors for GADOLINIUM NEPHROGENIC SYSTEMIC SCLEROSIS: Report Status: Verified Date Reported: SEP 07, 2024 Date Verified: SEP 07, 2024 Manager Business Operations E-Sig: Report: EXAMINATION: MRI OF THE CERVICAL [...] Interpreting Staff: HUANG TAI, Radiologist Verified by gym supervisor for HUANG TAI /HUANG WHEATLEY-Sav [facility] Sep 03, 2024 10:45 AM CHEST SINGLE(1) EW: LUIS MANUEL PERDOMO [id number] -1945 M Exm Date: SEP 03, 2024@10:45 Req Phys: FRANCK TURNER Pat Loc: 5-MED/TEL/09-03-2024@10:56 Img Loc: [facility]Y Service: [place] [address] (Case [id number] COMPLETE)CHEST SINGLE(1) VIEW (RAD Detailed) CPT:53979 Proc Modifiers : PORTABLE EXAM Reason for Study: Eval volume status Clinical History: Report Status: Verified Date Reported: SEP 03, 2024 Date Verified: SEP 03, 2024 Manager Business Operations E-Sig: Report: EXAMINATION: SINGLE VIEW CHEST CLINICAL [...] Interpreting Staff: HUANG TAI, Radiologist Verified by gym supervisor for HUANG TAI /HUANG WHEATLEY-Sav [facility] Aug 29, 2024 08:[address] HEAD W/O CONT: LUIS MANUEL PERDOMO [id number] -1945 M Exm Date: AUG 29, 2024@20:28 Req Phys: FELISA COLE Loc: ED/4P-12A (Req'g Loc) Img Loc: CT SCAN Service: [place] [address] (Case [id number] COMPLETE) CT HEAD W/O CONT (CT Detailed) CPT:39798 Reason for Study: SEE CLINICAL HISTORY Clinical History: REASON FOR SEND OUT: ATTENDING PHYSICIAN NAME: New transient neurological s/s - suspected TIA HISTORY/REASON FOR EXAM: confusion Report Status: Verified Date Reported: AUG 29, 2024 Date Verified: AUG 29, 2024 Manager Business Operations E-Sig: Report: HISTORY confusion COMPARISON No prior [...] Staff: ABDIRAHMAN CROW, Staff Physician Verified by gym supervisor for ABDIRAHMAN CROW [facility] Pathology Reports: +/- 30 [...] the Encounter. The data comes from all [facility] treatment facilities. Date/Time Pathology Report Provider Source Sep 03, 2024 01:35 PM LR MICROBIOLOGY RE PORT: Reporting Lab: [facility] [CLIA# [id number]] [address] [place] [id number] Accession [UID]: [id number] [[id number]] Received: Sep 03, 2024@14:02 Collection sample: URINE, [...] Report Performed By: [facility] [CLIA# [id number]] [address] [place] [id number] [facility] Sep 02, 2024 06:00 PM LR MICROBIOLOGY RE PORT: Reporting Lab: [facility] [CLIA# [id number]] [address] [place], [place] [id number] Accession [UID]: [id number] [[id number]] Received: Sep 02, 2024@18:07 Collection sample: BLD CULTURE BOTTLES Collection date: Sep 02, 2024 18:00 Site/Specimen: BLOOD Provider: FRANCK TURNER Comment on specimen: L HAND Test(s) ordered: CULTURE, BLOOD................ completed: Sep 08, 2024 * BACTERIOLOGY FINAL REPORT => Sep 08, 2024 08:25 TECH CODE: [id number] Bacteriology Remark(s): Blood culture status=NO GROWTH (unless notified otherwise) 09/03/2024 AEROBIC: NO GROWTH ANAEROBIC: NO GROWTH =--=--=--=--=--=--=--=--=--=-- =--=--=--=--=--=--=--=--=--=-- =--=--=--=--=--=-- Performing Laboratory: Bacteriology Report Performed By: [facility] [CLIA# [id number]] [address] [place], [place] [id number] [facility] Aug 29, 2024 10:18 PM LR MICROBIOLOGY RE PORT: Reporting Lab: [facility] [CLIA# [id number]] [address] [place], [place] [id number] Accession [UID]: [id number] [[id number]] Received: Aug 29, 2024@22:18 Collection sample: URINE, CLEAN CATCH Collection date: Aug 29, 2024 22:18 Site/Specimen: URINE Provider: FELISA COLE Test(s) ordered: CULTURE, URINE................ completed: Aug 31, 2024 09:51 * BACTERIOLOGY FINAL REPORT => Aug 31, 2024 09:51 TECH CODE: [id number] Bacteriology Remark(s): NO GROWTH 08/30/2024 <10,000 CFU/ML. 08/31/2024 =--=--=--=--=--=--=--=--=--=-- =--=--=--=--=--=--=--=--=--=-- =--=--=--=--=--=-- Performing Laboratory: Bacteriology Report Performed By: [facility] [IA# [id number]] [address] [place] [address] [facility]
--- OUTSIDE RECORDS SUMMARY | 2024-09-05 23:45 | XMS_ITS ---
[place] DAILY HOSPITALIZATION DATA [facility] Encounter Summary Created on: September 22, 2024 LUIS MANUEL PERDOMO : 1945 Sex: Male Author Name [facility] Organization [facility] Address [address] [place] [address] Care Team Providers Care Supervisor [employer] Name Role Phone YULISSA HENDERSON Primary Care [...] PLAN F Mar 24, 2014 PLAN F [id number] LUIS MANUEL PERDOMO PATIENT [facility] [place] [facility] PREFERRED PROVIDER ORGANIZAT ION (PPO) [facility] Sep 21, 2012 [id number] [phone] LUIS MANUEL PERDOMO PATIENT [employer] ([id number]) PRESCRIPT ION WL3A Sep 21, 2012 [id number] LUIS MANUEL PERDOMO PATIENT MEDICARE (WNR) MEDICARE (M) PART B Sep 21, 2012 PART B [id number] NOEMI PERDOMO PATIENT MEDICARE (WNR) MEDICARE (M) PART A Jan 22, 2011 PART A [id number] LEANNE, NOEMI PATIENT MEDICARE PART D (WNR) MEDICARE (M) PART D Mar 24, 2014 PART D [id number] LUIS MANUEL PERDOMO PATIENT Selected Encounter This section includes the information on record at [place] for the Encounter. Date/Time Encounter Type Encounter Description Reason Pro vider Source Sep 06, 2024 03:45 AM Inpatient Visit DAILY HOSPITALIZATION DATA [facility] Encounter Template Text not used by [place] Plan of Treatment: Future Appointments (+ 6 months) and Future Tests (+/- 45 days) The Plan of Treatment section includes [facility] care activities for the [facility] This section includes future appointments and future orders which are active, pending or scheduled. Future Appointments This section includes appointments that were scheduled to occur 6 months from the date of the Encounter, up to a maximum of 20 appointments. The data comes from all [place] treatment facilities. Appointment Date/Time Appointment Type Appointme nt Facility Name Sep 13, 2024 08:00 AM AMBULATORY - NONE [facility] Sep 30, 2024 01:30 PM AMBULATORY - SURGERY [facility] Active, Pending, and Scheduled Orders [...] Sep 13, 2024 01:33 PM Consult Order [facility] Cons Dust Mixer's Choice [facility] Lab Results: +/- 30 days of the encounter This section includes the Chemistry and Hematology Lab Results on record with [place] for the patient. Radiology Reports and Pathology Reports are provided separately, in subsequent sections. Lab Results This section contains the Chemistry/Hematology Results that were resulted 30 days before or 30 daysafter the date of the Encounter. Date/Time Source Result Type Result - Unit Interpretation Reference Range Specimen Type Comment Sep 09, 2024 12:16 PM [facility] GLUCOSE-HAND MONITOR CAPILLARY Specimen Type: CAPILLARY Comment: Test performed by: [id number] Meter #: [id number] Ordering Provider: FRANCK TURNER Report Released Date/Time: Sep 09, 2024 12:33 PM Reporting Lab: [address] [address] Performing Lab: [address] [address] GLUCOSE-HAND MONITOR 116 mg/dL H Sep 09, 2024 06:07 AM [facility] GLUCOSE-HAND MONITOR CAPILLARY Specime n Type: CAPILLARY Comment: Test performed by: [id number] Meter #: [id number] Ordering Provider: FRANCK TURNER Report Released Date/Time: Sep 09, 2024 08:17 AM Reporting Lab: [address] [address] Performing Lab: [address] [address] GLUCOSE-HAND MONITOR 112 mg/dL H Sep 08, 2024 09:13 PM [facility] GLUCOSE-HAND MONITOR CAPILLARY Specime n Type: CAPILLARY Comment: Test performed by: [id number] Meter #: [id number] Ordering Provider: FRANCK TURNER Report Released Date/Time: Sep 08, 2024 09:31 PM Reporting Lab: [address] [address] Performing Lab: [address] [address] GLUCOSE-HAND MONITOR 107 mg/dL H Sep 08, 2024 03:49 PM [facility] GLUCOSE-HAND MONITOR CAPILLARY Specime n Type: CAPILLARY Comment: AAMIR RN notified Test performed by: [id number] Meter #: [id number] Ordering Provider: FRANCK TURNER Report Released Date/Time: Sep 08, 2024 04:33 PM Reporting Lab: [address] [address] Performing Lab: [address] [address] GLUCOSE-HAND MONITOR 162 mg/dL H Sep 08, 2024 11:43 AM [facility] GLUCOSE-HAND MONITOR CAPILLARY Specime n Type: CAPILLARY Comment: AAMIR RN notified Test performed by: [id number] Meter #: [id number] Ordering Provider: FRANCK TURNER Report Released Date/Time: Sep 08, 2024 12:03 PM Reporting Lab: [address] [address] Performing Lab: [address] [address] GLUCOSE-HAND MONITOR 133 mg/dL H Sep 08, 2024 06:13 AM [facility] GLUCOSE-HAND MONITOR CAPILLARY Specime n Type: CAPILLARY Comment: Test performed by: [id number] Meter #: [id number] Ordering Provider: FRANCK TURNER Report Released Date/Time: Sep 08, 2024 06:46 AM Reporting Lab: [address] [address] Performing Lab: [address] [address] GLUCOSE-HAND MONITOR 104 mg/dL H Sep 07, 2024 07:59 PM [facility] GLUCOSE-HAND MONITOR CAPILLARY Specime n Type: CAPILLARY Comment: Test performed by: [id number] Meter #: [id number] Ordering Provider: FRANCK TURNER Report Released Date/Time: Sep 07, 2024 09:05 PM Reporting Lab: [address] [address] Performing Lab: [address] [address] GLUCOSE-HAND MONITOR 107 mg/dL H Sep 07, 2024 04:39 PM [facility] GLUCOSE-HAND MONITOR CAPILLARY Specime n Type: CAPILLARY Comment: Test performed by: [id number] Meter #: [id number] Ordering Provider: FRANCK TURNER Report Released Date/Time: Sep 07, 2024 05:09 PM Reporting Lab: [address] [address] Performing Lab: [address] [address] GLUCOSE-HAND MONITOR 105 mg/dL H Sep 07, 2024 11:41 AM [facility] GLUCOSE-HAND MONITOR CAPILLARY Specime n Type: CAPILLARY Comment: Test performed by: [id number] Meter #: [id number] Ordering Provider: FRANCK TURNER Report Released Date/Time: Sep 07, 2024 12:41 PM Reporting Lab: [address] [address] Performing Lab: [address] [address] GLUCOSE-HAND MONITOR 144 mg/dL H Sep 07, 2024 05:56 AM [facility] GLUCOSE-HAND MONITOR CAPILLARY Specime n Type: CAPILLARY Comment: Test performed by: [id number] Meter #: [id number] Ordering Provider: FRANCK TURNER Report Released Date/Time: Sep 07, 2024 06:31 AM Reporting Lab: [address] [address] Performing Lab: [address] [address] GLUCOSE-HAND MONITOR 96 mg/dL Sep 06, 2024 08:10 PM [facility] GLUCOSE-HAND MONITOR CAPILLARY Specime n Type: CAPILLARY Comment: Test performed by: [id number] Meter #: [id number] Ordering Provider: FRANCK TURNER Report Released Date/Time: Sep 06, 2024 08:52 PM Reporting Lab: [address] [address] Performing Lab: [address] [address] GLUCOSE-HAND MONITOR 124 mg/dL H Sep 06, 2024 04:27 PM [facility] GLUCOSE-HAND MONITOR CAPILLARY Specime n Type: CAPILLARY Comment: Test performed by: [id number] Meter #: [id number] Ordering Provider: FRANCK TURNER Report Released Date/Time: Sep 06, 2024 05:15 PM Reporting Lab: [address] [address] Performing Lab: [address] [address] GLUCOSE-HAND MONITOR 107 mg/dL H Sep 06, 2024 12:12 PM [facility] GLUCOSE-HAND MONITOR CAPILLARY Specime n Type: CAPILLARY Comment: Test performed by: [id number] Meter #: [id number] Ordering Provider: FRANCK TURNER Report Released Date/Time: Sep 06, 2024 12:29 PM Reporting Lab: [address] [address] Performing Lab: [address] [address] GLUCOSE-HAND MONITOR 181 mg/dL H -Sep 06, 2024 06:13 AM [facility] GLUCOSE-HAND MONITOR CAPILLARY Specime n Type: CAPILLARY Comment: Test performed by: [id number] Meter #: [id number] Ordering Provider: FRANCK TURNER Report Released Date/Time: Sep 06, 2024 06:36 AM Reporting Lab: [address] [address] Performing Lab: [address] [address] GLUCOSE-HAND MONITOR 102 mg/dL H Sep 05, 2024 08:47 PM [facility] GLUCOSE-HAND MONITOR CAPILLARY Specime n Type: CAPILLARY Comment: Test performed by: [id number] Meter #: [id number] Ordering Provider: FRANCK TURNER Report Released Date/Time: Sep 06, 2024 02:13 AM Reporting Lab: [address] [address] Performing Lab: [address] [address] GLUCOSE-HAND MONITOR 103 mg/dL H Sep 05, 2024 04:40 PM [facility] GLUCOSE-HAND MONITOR CAPILLARY Specime n Type: CAPILLARY Comment: AAMIR RN notified Test performed by: [id number] Meter #: [id number] Ordering Provider: FRANCK TURNER Report Released Date/Time: Sep 05, 2024 05:11 PM Reporting Lab: [address] [address] Performing Lab: [address] [address] GLUCOSE-HAND MONITOR 113 mg/dL H Sep 05, 2024 12:06 PM [facility] GLUCOSE-HAND MONITOR CAPILLARY Specime n Type: CAPILLARY Comment: Test performed by: [id number] Meter #: [id number] Ordering Provider: FRANCK TURNER Report Released Date/Time: Sep 05, 2024 12:23 PM Reporting Lab: [address] [address] Performing Lab: [address] [address] GLUCOSE-HAND MONITOR 115 mg/dL H Sep 05, 2024 06:26 AM [facility] GLUCOSE-HAND MONITOR CAPILLARY Specime n Type: CAPILLARY Comment: AAMIR Correction Dose Test performed by: [id number] Meter #: [id number] Ordering Provider: FRANCK TURNER Report Released Date/Time: Sep 05, 2024 06:43 AM Reporting Lab: [address] [address] Performing Lab: [address] [address] GLUCOSE-HAND MONITOR 111 mg/dL H Sep 04, 2024 08:59 PM [facility] GLUCOSE-HAND MONITOR CAPILLARY Specime n Type: CAPILLARY Comment: AAMIR RN notified Test performed by: [id number] Meter #: [id number] Ordering Provider: FRANCK TURNER Report Released Date/Time: Sep 04, 2024 09:36 PM Reporting Lab: [address] [address] Performing Lab: [address] [address] GLUCOSE-HAND MONITOR 123 mg/dL H Sep 04, 2024 04:41 PM [facility] GLUCOSE-HAND MONITOR CAPILLARY Specime n Type: CAPILLARY Comment: AAMIR RN notified Test performed by: [id number] Meter #: [id number] Ordering Provider: FRANCK TURNER Report Released Date/Time: Sep 04, 2024 05:03 PM Reporting Lab: [address] [address] Performing Lab: [address] [address] GLUCOSE-HAND MONITOR 118 mg/dL H Sep 04, 2024 12:36 PM [facility] GLUCOSE-HAND MONITOR CAPILLARY Specime n Type: CAPILLARY Comment: AAMIR RN notified Test performed by: [id number] Meter #: [id number] Ordering Provider: FRANCK TURNER Report Released Date/Time: Sep 04, 2024 12:53 PM Reporting Lab: [address] [address] Performing Lab: [place] [address] GLUCOSE-HAND MONITOR 129 mg/dL H 71-99 Sep 04, 2024 12:03 PM [facility] RESPIRATORY VIRUS PANEL (BIOFIRE) NASOPHARYN X Specimen Type: NASOPHARYNX Comment: ~For Test: RESPIRATORY VIRUS PANEL (BIOFIRE) ~ORDER READ BACK TO: FRANCK TURNER 09/04/24@11:30 Ordering Provider: FRANCK TURNER Report Released Date/Time: Sep 04, 2024 11:33 AM Reporting Lab: [place] [phone] Performing Lab: [place] [phone] ADENOVIRUS (BIOFIRE) Not Detected -Not D etected [...] -Not Detected Sep 04, 2024 06:55 AM [facility] MAGNESIUM PLASMA Specimen Type: PLASM A [...] Reporting Lab: [place] [facility] [address] [facility] [address] Performing Lab: [place] [address] [facility] [address] MAGNESIUM 1.8 mg/dL 1.6-2.6 Sep 04, 2024 06:55 AM [facility] PANEL 1 PLASMA Specimen Type: PLASM [...] Sep 03, 2024 11:10 AM Reporting Lab: [address] [address] Performing Lab: [address] CREATININE 0.75 mg/dL 0.72-1.25 UREA NITROGEN 13 mg/dL 9-25 GLUCOSE 105 mg/dL H 74-100 SODIUM 128 mmol/L L 136-145 POTASSIUM 3.9 mmol/L 3.5-5.1 CHLORIDE 99 mmol/L 98-107 CO2 21 mmol/L L 22-29 CALCIUM 8.0 mg/dL L 8.4-10.2 ANION GAP 8 meq/L 3-19 eGFR (CKD-EPI) >90 Sep 04, 2024 06:02 AM [facility] GLUCOSE-HAND MONITOR CAPILLARY Specime n Type: CAPILLARY Comment: Test performed by: [id number] Meter #: [id number] Ordering Provider: FRANCK TURNER Report Released Date/Time: Sep 04, 2024 06:28 AM Reporting Lab: [address] Performing Lab: [address] GLUCOSE-HAND MONITOR 114 mg/dL H 71-99 Sep 03, 2024 05:19 PM [facility] GLUCOSE-HAND MONITOR CAPILLARY Specime n Type: CAPILLARY Comment: Test performed by: [id number] Meter #: [id number] Ordering Provider: FRANCK TURNER Report Released Date/Time: Sep 03, 2024 05:37 PM Reporting Lab: [address] Performing Lab: [address] [address] GLUCOSE-HAND MONITOR 124 mg/dL H 71-99 Sep 03, 2024 04:41 PM [facility] GLUCOSE-HAND MONITOR CAPILLARY Specime n Type: CAPILLARY Comment: Test performed by: [id number] Meter #: [id number] Ordering Provider: FRANCK TURNER Report Released Date/Time: Sep 03, 2024 06:09 PM Reporting Lab: [address] [address] Performing Lab: [address] [address] GLUCOSE-HAND MONITOR 112 mg/dL H 71-99 Sep 03, 2024 01:35 PM [facility] CREATININE URINE Specimen Type: URINE Comment: ~Altered mental status with no identifiable cause Ordering Provider: FRANCK TURNER Report Released Date/Time: Sep 02, 2024 04:44 PM Reporting Lab: [facility] [address] [place] [address] Performing Lab: [address] [address] CREATININE 150.9 mg/dL Sep 03, 2024 01:35 PM [facility] URINE LYTES URINE Specimen Type : URINE Comment: ~Altered mental status with no identifiable cause Ordering Provider: FRANCK TURNER Report Released Date/Time: Sep 02, 2024 04:44 PM Reporting Lab: [address] [address] Performing Lab: [address] [address] SODIUM 130 mmol/L POTASSIUM 47.6 mmol/L CHLORIDE 137 mmol/L Sep 03, 2024 01:35 PM [facility] UREA NITROGEN URINE Specimen Type : URINE Comment: ~Altered mental status with no identifiable cause Ordering Provider: FRANCK TURNER Report Released Date/Time: Sep 02, 2024 04:44 PM Reporting Lab: [address] [address] Performing Lab: [address] [address] UREA NITROGEN 320 mg/dL Sep 03, 2024 01:35 PM [facility] URINALYSIS WITH REFLEX TO CULTURE URINE Specimen Type: URINE Comment: ~Altered mental status with no identifiable cause Ordering Provider: FRANCK TURNER Report Released Date/Time: Sep 02, 2024 04:44 PM Reporting Lab: [address] [address] Performing Lab: [address] [address] URINE COLOR Yellow Colorless-Yellow APPEARANCE CLOUDY H [...] Sep 03, 2024 01:35 PM [facility] OSMOLALITY URINE Specimen Type: URINE Comment: ~Altered mental status with no identifiable cause Ordering Provider: FRANCK TURNER Report Released Date/Time: Sep 02, 2024 04:44 PM Reporting Lab: [place] [phone] Performing Lab: [place] [phone] OSMOLALITY 522 mosm/kg 38-1400 Sep 03, 2024 11:58 AM [facility] GLUCOSE-HAND MONITOR CAPILLARY Specime n Type: CAPILLARY Comment: AAMIR RN notified Test performed by: [id number] Meter #: [id number] Ordering Provider: FRANCK TURNER Report Released Date/Time: Sep 03, 2024 12:15 PM Reporting Lab: [address] [address] Performing Lab: [address] [address] GLUCOSE-HAND MONITOR 135 mg/dL H Sep 03, 2024 07:09 AM [facility] GLUCOSE-HAND MONITOR CAPILLARY Specime n Type: CAPILLARY Comment: Test performed by: [id number] Meter #: [id number] Ordering Provider: FRANCK TURNER Report Released Date/Time: Sep 03, 2024 07:26 AM Reporting Lab: [address] [address] Performing Lab: [address] [address] GLUCOSE-HAND MONITOR 120 mg/dL H Sep 03, 2024 07:05 AM [facility] CBC/PLT BLOOD Specimen Type: BLOOD No comment entered. Ordering Provider: FRANCK TURNER Report Released Date/Time: Sep 02, 2024 04:29 PM Reporting Lab: [address] [address] Performing Lab: [address] [address] WBC 6.9 10*3/uL 5.0-10.0 RBC 3.48 10*6/uL L 4.6-6.2 HGB 9.5 g/dL L 14.0-18.0 HCT 29.1 L 42.0-52.0 MCV 83.6 fL 80.0-94.0 MCH 27.3 pg 27.0-31.0 MCHC 32.6 g/dL 32.0-36.0 PLT 258 10*3/uL 150-450 MPV 10.3 fL 9.0-13.1 RDW 14.8 11.0-16.0 NRBC 0.0 0.0-0.0 Sep 03, 2024 07:05 AM [facility] MAGNESIUM PLASMA Specimen Type: PLASM A [...] Sep 02, 2024 04:29 PM Reporting Lab: [address] [address] Performing Lab: [address] [address] MAGNESIUM 1.7 mg/dL 1.6-2.6 Sep 03, 2024 07:05 AM [facility] PANEL 1 PLASMA Specimen Type: PLASM [...] Sep 02, 2024 04:29 PM Reporting Lab: [address] [address] Performing Lab: [address] [address] CREATININE 0.82 mg/dL 0.72-1.25 UREA NITROGEN 12 mg/dL 9-25 GLUCOSE 109 mg/dL H 74-100 SODIUM 129 mmol/L L 136-145 POTASSIUM 4.2 mmol/L 3.5-5.1 CHLORIDE 99 mmol/L 98-107 CO2 21 mmol/L L 22-29 CALCIUM 8.1 mg/dL L 8.4-10.2 ANION GAP 9 meq/L 3-19 eGFR (CKD-EPI) 90 Sep 03, 2024 07:05 AM [facility] GLYCOHEMOGLOBIN BLOOD Specimen Type: BLOOD Comment: Prediabetes: 5.7%-6.4% Diabetes: >= 6.5% [facility] guidelines for A1c interpretation: Glycemic control targets are based on Shared Decision Making between clinicians and patients. Criteria used to establish an A1c target recommendation can be found at https://www.ri.gov/qualityandpatientsafety/ and include the use of result accuracy [...] 8.73 and 9.27. Ref: https://ngsp.org/CAPdata.asp. The in-house [employer] D-100 analyzer has a historical CV <= 2%. Contact the laboratory for further performance characteristics of this assay. Ordering Provider: FRANCK TURNER Report Released Date/Time: Sep 02, 2024 04:29 PM Reporting Lab: [address] [address] Performing Lab: [place] [phone] GLYCOHEMOGLOBIN 5.6 4.4-5.6 Sep 03, 2024 07:05 AM [facility] OSMOLALITY SERUM Specimen Type: SERUM No comment entered. Ordering Provider: FRANCK TURNER Report Released Date/Time: Sep 02, 2024 04:44 PM Reporting Lab: [address] [address] Performing Lab: [address] [address] OSMOLALITY 271 mosm/kg L 280-300 Sep 02, 2024 08:15 PM [facility] GLUCOSE-HAND MONITOR CAPILLARY Specime n Type: CAPILLARY Comment: AAMIR DEXTER notified Test performed by: [id number] Meter #: [id number] Ordering Provider: FRANCK TURNER Report Released Date/Time: Sep 02, 2024 08:57 PM Reporting Lab: [address] [address] Performing Lab: [address] [address] GLUCOSE-HAND MONITOR 126 mg/dL H 71-99 Sep 02, 2024 06:10 PM [facility] MRSA SURVL NARES DNA NARES Specime [...] Sep 02, 2024 05:12 PM Reporting Lab: [address] [address] Performing Lab: [address] [address] MRSA SURVL NARES DNA Negative Negative Sep 02, 2024 05:36 PM [facility] GLUCOSE-HAND MONITOR CAPILLARY Specime n Type: CAPILLARY Comment: Test performed by: [id number] Meter #: [id number] Ordering Provider: FRANCK TURNER Report Released Date/Time: Sep 02, 2024 05:53 PM Reporting Lab: [address] [address] Performing Lab: [address] [address] GLUCOSE-HAND MONITOR 127 mg/dL H 71-99 Aug 29, 2024 10:04 PM [facility] URINALYSIS WITH REFLEX TO CULTURE URINE Specimen Type: URINE Comment: ~For Test: URINALYSIS WITH REFLEX TO CULTURE ~REORDER Ordering Provider: FELISA COLE Report Released Date/Time: Aug 29, 2024 09:36 PM Reporting Lab: [address] [address] Performing Lab: [address] [address] URINE COLOR Yellow Colorless-Yellow APPEARANCE Clear Clear [...] /[LPF] 0-28 Aug 29, 2024 08:32 PM [facility]IGH SENSITIVITY TROPONIN I PLASMA Specimen [...] Aug 29, 2024 07:55 PM Reporting Lab: [address] [address] Performing Lab: [address] [address] HIGH SENSITIVITY TROPONIN I 7 4-35 Aug 29, 2024 08:32 PM [facility] CBC/PLT BLOOD Specimen Type: BLOOD No comment entered. Ordering Provider: FELISA COLE Report Released Date/Time: Aug 29, 2024 07:55 PM Reporting Lab: [address] [address] Performing Lab: [address] [address] WBC 11.2 10*3/uL H 5.0-10.0 RBC 3.97 10*6/uL L 4.6-6.2 HGB 10.9 g/dL L 14.0-18.0 HCT 33.5 L 42.0-52.0 MCV 84.4 fL 80.0-94.0 MCH 27.5 pg 27.0-31.0 MCHC 32.5 g/dL 32.0-36.0 PLT 230 10*3/uL 150-450 MPV 10.2 fL 9.0-13.1 RDW 14.6 11.0-16.0 NRBC 0.0 0.0-0.0 Aug 29, 2024 08:32 PM [facility] PANEL 5 PLASMA Specimen Type: PLASM [...] Aug 29, 2024 07:55 PM Reporting Lab: [address] [address] Performing Lab: [address] [address] CREATININE 0.85 mg/dL 0.72-1.25 UREA NITROGEN 15 [...] Height Weight Body Mass Index Source Sep 06, 2024 08:09 PM 97.5 F 73 /min 159/74 mm[Hg] 18 /min 93 % 0 [place] Sep 06, 2024 04:27 PM 97.5 F 67 /min 148/67 mm[Hg] 20 /min 93 % 0 [place] Sep 06, 2024 03:37 PM 0 [place] Sep 06, 2024 11:30 AM 0 [place] Sep 06, 2024 10:22 AM 97.4 F 71 /min 102/49 mm[Hg] 18 /min 93 % 0 [place] [facility] Advance Directives: All historical and current Section Date Range: From patient's date of to the date document was created. This section includes ALL of a patient's completed or amended [place] Advance and Rescinded Directives. The entries below indicate that a directive exists for the patient, but an actual copy is not included with this document. The data comes from all [place] facilities. Date Advance Directives Provider Source Mar 08, 2024 ADVANCE DIRECTIVE DISCUSSION [facility] Radiology Reports: +/- 30 days of [...] the Encounter. The data comes from all [place] treatment facilities. Date/Time Radiology Report Provider Source Sep 06, 2024 01:40 PM MRI BRAIN W & W/O: LUIS MANUEL PERDOMO [id number] -1945 M Exm Date: SEP 06, 2024@13:40 Req Phys: FRANCK TURNER Pat Loc: 5-MED/TEL/09-06-2024@19:09 Img Loc: [facility] Service: [place] [address] (Case [id number] COMPLETE) MRI BRAIN W & W/O (MRI Detailed) CPT:06921 Contrast Media : Gadolinium Reason for Study: SEE CLINICAL HISTORY Pharmaceutical: GADOTERIDOL 279.3MG/ML 20ML INJ, 19ml Clinical History: MRI Screening (Required): IMPLANTED DEVICE DOCUMENTATION IMPLANTED DEVICE DOCUMENTATION NOT FOUND Does the have any Cardiac Implants? None Does the have any implanted stimulators? None Does the [place] have cochlear implants? No Does the have [...] 06, 2024 Date Verified: SEP 06, 2024 Wedding Designer E-Sig: Report: MRI brain without and with [...] ARCENIO LEYVA, Staff Radiologist Verified by social media editor for ARCENIO LEYVA /ARCENIO AVILA-[facility] Sep 06, 2024 01:40 PM MRI C SPINE W & W/ O CONTRAST(FURTHER SEQUENCES): LUIS MANUEL PERDOMO [id number] -1945 M Exm Date: SEP 06, 2024@13:40 Req Phys: FRANCK TURNERSav Pat Loc: 5-MED/TEL/09-07-2024@06:42 Img Loc: [facility] Service: [place] [address] (Case [id number] COMPLETE) MRI C SPINE W & W/O CONTRAST(FURT(MRI Detailed) CPT:76965 Contrast Media : Gadolinium Reason for Study: [...] the have cochlear implants? No Does the [place] have Cerebral aneurysm clip(s)? I don't know [...] 07, 2024 Date Verified: SEP 07, 2024 Wedding Designer E-Sig: Report: EXAMINATION: MRI OF THE CERVICAL [...] Staff: HUANG TAI, Radiologist Verified by social media editor for HUANG TAI /HUANG WHEATLEY-Sav [facility] Sep 03, 2024 10:45 AM CHEST SINGLE(1) EW: LUIS MANUEL PERDOMO [id number] -1945 M Exm Date: SEP 03, 2024@10:45 Req Phys: FRANCK TURNER Pat Loc: 5-MED/TEL/09-03-2024@10:56 Img Loc: [facility] Service: [place] [address] (Case [id number] COMPLETE)CHEST SINGLE(1) VIEW (RAD Detailed) CPT:34744 Proc Modifiers : PORTABLE EXAM Reason for Study: Eval volume status Clinical History: Report Status: Verified Date Reported: SEP 03, 2024 Date Verified: SEP 03, 2024 Wedding Designer E-Sig: Report: EXAMINATION: SINGLE VIEW CHEST CLINICAL [...] Staff: HUANG TAI, Radiologist Verified by social media editor for HUANG TAI /HUANG WHEATLEY-D [facility] Aug 29, 2024 08:[address] HEAD W/O CONT: LUIS MANUEL PERDOMO FABIAN [id number] -1945 M Exm Date: AUG 29, 2024@20:28 Req Phys: FELISA COLE Loc: ED/4P-12A (Req'g Loc) Img Loc: CT SCAN Service: Unknown [place] [id number] (Case [id number] COMPLETE) CT HEAD W/O CONT (CT Detailed) CPT:[id number] Reason for Study: SEE CLINICAL HISTORY Clinical History: REASON FOR SEND OUT: ATTENDING PHYSICIAN NAME: New transient neurological s/s - suspected TIA HISTORY/REASON FOR EXAM: confusion Report Status: Verified Date Reported: AUG 29, 2024 Date Verified: AUG 29, 2024 Wedding Designer E-Sig: Report: HISTORY confusion COMPARISON No prior [...] ABDIRAHMAN CROW, Staff Physician Verified by social media editor for ABDIRAHMAN CROW /GUERITA CROW,ABDIRAHMAN RUBI-D [facility] Pathology Reports: +/- 30 days of the [...] the Encounter. The data comes from all [place] treatment facilities. Date/Time Pathology Report Provider Source Sep 03, 2024 01:35 PM LR MICROBIOLOGY RE PORT: Reporting Lab: [facility] [CLIA# [id number]] [address] [place] [id number] Accession [UID]: [id number] [[id number]] Received: Sep 03, 2024@14:02 Collection sample: URINE, [...] Report Performed By: [facility] [CLIA# [id number]] [address] [place] [phone] [facility] Sep 02, 2024 06:00 PM LR MICROBIOLOGY RE PORT: Reporting Lab: [facility] [CLIA# [id number]] [address] [place] [address] Accession [UID]: [id number] [[id number]] Received: Sep 02, 2024@18:07 Collection sample: BLD CULTURE BOTTLES Collection date: Sep 02, 2024 18:00 Site/Specimen: BLOOD Provider: FRANCK TURNER Comment on specimen: L HAND Test(s) ordered: CULTURE, BLOOD................ completed: Sep 08, 2024 * BACTERIOLOGY FINAL REPORT => Sep 08, 2024 08:25 TECH CODE: [id number] Bacteriology Remark(s): Blood culture status=NO GROWTH (unless notified otherwise) 09/03/2024 AEROBIC: NO GROWTH ANAEROBIC: NO GROWTH =--=--=--=--=--=--=--=--=--=-- =--=--=--=--=--=--=--=--=--=-- =--=--=--=--=--=-- Performing Laboratory: Bacteriology Report Performed By: [facility] [CLIA# [id number]] [address] [place] [address] MAGDY CALABRESE [facility] Aug 29, 2024 10:18 PM LR MICROBIOLOGY RE PORT: Reporting Lab: [facility] [CLIA# [id number]] [address] [place] [address] Accession [UID]: [id number] [[id number]] Received: Aug 29, 2024@22:18 Collection sample: URINE, CLEAN CATCH Collection date: Aug 29, 2024 22:18 Site/Specimen: URINE Provider: FELISA COLE Test(s) ordered: CULTURE, URINE................ completed: Aug 31, 2024 09:51 * BACTERIOLOGY FINAL REPORT => Aug 31, 2024 09:51 TECH CODE: [id number] Bacteriology Remark(s): NO GROWTH 08/30/2024 <10,000 CFU/ML. 08/31/2024 =--=--=--=--=--=--=--=--=--=-- =--=--=--=--=--=--=--=--=--=-- =--=--=--=--=--=-- Performing Laboratory: Bacteriology Report Performed By: [facility] [CLIA# [id number]] [address] [place] [address] MAGDY CALABRESE-Sav [facility]
--- OUTSIDE RECORDS SUMMARY | 2024-09-06 00:44 | XMS_ITS ---
[place] DAILY HOSPITALIZATION DATA [facility] Encounter Summary Created on: September 22, 2024 LUIS MANUEL PERDOMO : 1945 Sex: Male Author Name Department of [facility] ([place] Organization Department of [facility] [place] Address [address] [place] [address] Care Team Providers Care Harness Brusher Name Role Phone YULISSA HNEDERSON Primary Care Provider Unavailab JAMES Almanza Unavailable [...] PLAN F Mar 24, 2014 PLAN F [id number] LUIS MANUEL PERDOMO PATIENT [facility] [place] [facility] PREFERRED PROVIDER ORGANIZAT ION (PPO) [facility] SLE Sep 21, 2012 [id number] LUIS MANUEL PERDOMO PATIENT [employer] ([id number]) PRESCRIPT ION WL3A Sep 21, 2012 [id number] LUIS MANUEL PERDOMO PATIENT MEDICARE (WNR) MEDICARE (M) PART B Sep 21, 2012 PART B [id number] [id number] NOEMI PERDOMO PATIENT MEDICARE (WNR) MEDICARE (M) PART A Jan 22, 2011 PART A [id number] LEANNE, NOEMI PATIENT MEDICARE PART D (WNR) MEDICARE (M) PART D Mar 24, 2014 PART D [id number] LUIS MANUEL PERDOMO PATIENT Selected Encounter This section includes the information on record at [place] for the Encounter. Date/Time Encounter Type Encounter Description Reason Pro vider Source Sep 06, 2024 04:44 AM Inpatient Visit DAILY HOSPITALIZATION DATA [facility] Encounter Template Text not used by [place] Plan of Treatment: Future Appointments (+ 6 months) and Future Tests (+/- 45 days) The Plan of Treatment section includes future care activities for the patient from [facility] [place] [facility]. This section includes future appointments and [...] 13, 2024 08:00 AM AMBULATORY - NONE [facility] Sep 30, 2024 01:30 PM AMBULATORY - SURGERY [facility] Active, Pending, and Scheduled Orders This section includes a listing of several types of active, pending, and scheduled orders, including clinic medications orders, diagnostic test orders, procedure orders and consult orders; where the start date of the order is 45 days before the date of the Encounter or 45 days after the date of theEncounter. The data comes from all [facility] facilities. Test Date/Time Test Type Test Details Facility Name Sep 13, 2024 01:33 PM Consult Order [facility] SKILLED HOME CARE Cons Petrophysicist's Choice [facility] Lab Results: +/- 30 days of [...] Specimen Type: CAPILLARY Comment: Test performed by: [id number] Meter #: [id number] Ordering Provider: FRANCK TURNER Report Released Date/Time: Sep 09, 2024 12:33 PM Reporting Lab: [address] [address] Performing Lab: [address] [address] GLUCOSE-HAND MONITOR 116 mg/dL H Sep 09, 2024 06:07 AM [facility] GLUCOSE-HAND MONITOR CAPILLARY Specime n Type: CAPILLARY Comment: Test performed by: [id number] Meter #: [id number] Ordering Provider: FRANCK TURNER Report Released Date/Time: Sep 09, 2024 08:17 AM Reporting Lab: [address] [address] Performing Lab: [address] [address] GLUCOSE-HAND MONITOR 112 mg/dL H Sep 08, 2024 09:13 PM [facility] GLUCOSE-HAND MONITOR CAPILLARY Specime n Type: CAPILLARY Comment: Test performed by: [id number] Meter #: [id number] Ordering Provider: FRANCK TURNER Report Released Date/Time: Sep 08, 2024 09:31 PM Reporting Lab: [address] [address] Performing Lab: [address] [address] GLUCOSE-HAND MONITOR 107 mg/dL H Sep 08, 2024 03:49 PM [facility] GLUCOSE-HAND MONITOR CAPILLARY Specime n Type: CAPILLARY Comment: AAMIR RN notified Test performed by: [id number] Meter #: [id number] Ordering Provider: FRANCK TURNER Report Released Date/Time: Sep 08, 2024 04:33 PM Reporting Lab: [address] [address] Performing Lab: [address] [address] GLUCOSE-HAND MONITOR 162 mg/dL H Sep 08, 2024 11:43 AM [facility] GLUCOSE-HAND MONITOR CAPILLARY Specime n Type: CAPILLARY Comment: AAMIR RN notified Test performed by: [id number] Meter #: [id number] Ordering Provider: FRANCK TURNER Report Released Date/Time: Sep 08, 2024 12:03 PM Reporting Lab: [address] [address] Performing Lab: [address] [address] GLUCOSE-HAND MONITOR 133 mg/dL H Sep 08, 2024 06:13 AM [facility] GLUCOSE-HAND MONITOR CAPILLARY Specime n Type: CAPILLARY Comment: Test performed by: [id number] Meter #: [id number] Ordering Provider: FRANCK TURNER Report Released Date/Time: Sep 08, 2024 06:46 AM Reporting Lab: [address] [address] Performing Lab: [address] [address] GLUCOSE-HAND MONITOR 104 mg/dL H Sep 07, 2024 07:59 PM [facility] GLUCOSE-HAND MONITOR CAPILLARY Specime n Type: CAPILLARY Comment: Test performed by: [id number] Meter #: [id number] Ordering Provider: FRANCK TURNER Report Released Date/Time: Sep 07, 2024 09:05 PM Reporting Lab: [address] [address] Performing Lab: [address] [address] GLUCOSE-HAND MONITOR 107 mg/dL H Sep 07, 2024 04:39 PM [facility] GLUCOSE-HAND MONITOR CAPILLARY Specime n Type: CAPILLARY Comment: Test performed by: [id number] Meter #: [id number] Ordering Provider: FRANCK TURNER Report Released Date/Time: Sep 07, 2024 05:09 PM Reporting Lab: [address] [address] Performing Lab: [address] [address] GLUCOSE-HAND MONITOR 105 mg/dL H Sep 07, 2024 11:41 AM [facility] GLUCOSE-HAND MONITOR CAPILLARY Specime n Type: CAPILLARY Comment: Test performed by: [id number] Meter #: [id number] Ordering Provider: FRANCK TURNER Report Released Date/Time: Sep 07, 2024 12:41 PM Reporting Lab: [address] [address] Performing Lab: [address] [address] GLUCOSE-HAND MONITOR 144 mg/dL H Sep 07, 2024 05:56 AM [facility] GLUCOSE-HAND MONITOR CAPILLARY Specime n Type: CAPILLARY Comment: Test performed by: [id number] Meter #: [id number] Ordering Provider: FRANCK TURNER Report Released Date/Time: Sep 07, 2024 06:31 AM Reporting Lab: [address] [address] Performing Lab: [address] [address] GLUCOSE-HAND MONITOR 96 mg/dL Sep 06, 2024 08:10 PM [facility] GLUCOSE-HAND MONITOR CAPILLARY Specime n Type: CAPILLARY Comment: Test performed by: [id number] Meter #: [id number] Ordering Provider: FRANCK TURNER Report Released Date/Time: Sep 06, 2024 08:52 PM Reporting Lab: [address] [address] Performing Lab: [address] [address] GLUCOSE-HAND MONITOR 124 mg/dL H Sep 06, 2024 04:27 PM [facility] GLUCOSE-HAND MONITOR CAPILLARY Specime n Type: CAPILLARY Comment: Test performed by: [id number] Meter #: [id number] Ordering Provider: FRANCK TURNER Report Released Date/Time: Sep 06, 2024 05:15 PM Reporting Lab: [address] [address] Performing Lab: [address] [address] GLUCOSE-HAND MONITOR 107 mg/dL H Sep 06, 2024 12:12 PM [facility] GLUCOSE-HAND MONITOR CAPILLARY Specime n Type: CAPILLARY Comment: Test performed by: [id number] Meter #: [id number] Ordering Provider: FRANCK TURNER Report Released Date/Time: Sep 06, 2024 12:29 PM Reporting Lab: [address] [address] Performing Lab: [address] [address] GLUCOSE-HAND MONITOR 181 mg/dL H -Sep 06, 2024 06:13 AM [facility] GLUCOSE-HAND MONITOR CAPILLARY Specime n Type: CAPILLARY Comment: Test performed by: [id number] Meter #: [id number] Ordering Provider: FRANCK TURNER Report Released Date/Time: Sep 06, 2024 06:36 AM Reporting Lab: [address] [address] Performing Lab: [address] [address] GLUCOSE-HAND MONITOR 102 mg/dL H Sep 05, 2024 08:47 PM [facility] GLUCOSE-HAND MONITOR CAPILLARY Specime n Type: CAPILLARY Comment: Test performed by: [id number] Meter #: [id number] Ordering Provider: FRANCK TURNER Report Released Date/Time: Sep 06, 2024 02:13 AM Reporting Lab: [address] [address] Performing Lab: [address] [address] GLUCOSE-HAND MONITOR 103 mg/dL H Sep 05, 2024 04:40 PM [facility] GLUCOSE-HAND MONITOR CAPILLARY Specime n Type: CAPILLARY Comment: AAMIR RN notified Test performed by: [id number] Meter #: [id number] Ordering Provider: FRANCK TURNER Report Released Date/Time: Sep 05, 2024 05:11 PM Reporting Lab: [address] [address] Performing Lab: [address] [address] GLUCOSE-HAND MONITOR 113 mg/dL H Sep 05, 2024 12:06 PM [facility] GLUCOSE-HAND MONITOR CAPILLARY Specime n Type: CAPILLARY Comment: Test performed by: [id number] Meter #: [id number] Ordering Provider: FRANCK TURNER Report Released Date/Time: Sep 05, 2024 12:23 PM Reporting Lab: [address] [address] Performing Lab: [address] [address] GLUCOSE-HAND MONITOR 115 mg/dL H Sep 05, 2024 06:26 AM [facility] GLUCOSE-HAND MONITOR CAPILLARY Specime n Type: CAPILLARY Comment: AAMIR Correction Dose Test performed by: [id number] Meter #: [id number] Ordering Provider: FRANCK TURNER Report Released Date/Time: Sep 05, 2024 06:43 AM Reporting Lab: [address] [address] Performing Lab: [address] [address] GLUCOSE-HAND MONITOR 111 mg/dL H Sep 04, 2024 08:59 PM [facility] GLUCOSE-HAND MONITOR CAPILLARY Specime n Type: CAPILLARY Comment: AAMIR RN notified Test performed by: [id number] Meter #: [id number] Ordering Provider: FRANCK TURNER Report Released Date/Time: Sep 04, 2024 09:36 PM Reporting Lab: [address] [address] Performing Lab: [address] [address] GLUCOSE-HAND MONITOR 123 mg/dL H Sep 04, 2024 04:41 PM [facility] GLUCOSE-HAND MONITOR CAPILLARY Specime n Type: CAPILLARY Comment: AAMIR RN notified Test performed by: [id number] Meter #: [id number] Ordering Provider: FRANCK TURNER Report Released Date/Time: Sep 04, 2024 05:03 PM Reporting Lab: [address] [address] Performing Lab: [address] [address] GLUCOSE-HAND MONITOR 118 mg/dL H Sep 04, 2024 12:36 PM [facility] GLUCOSE-HAND MONITOR CAPILLARY Specime n Type: CAPILLARY Comment: AAMIR RN notified Test performed by: [id number] Meter #: [id number] Ordering Provider: FRANCK TURNER Report Released Date/Time: Sep 04, 2024 12:53 PM Reporting Lab: [address] [address] Performing Lab: [place] [address] GLUCOSE-HAND MONITOR 129 mg/dL H 71-99 Sep 04, 2024 12:03 PM [facility] RESPIRATORY VIRUS PANEL (BIOFIRE) NASOPHARYN X Specimen Type: NASOPHARYNX Comment: ~For Test: RESPIRATORY VIRUS PANEL (BIOFIRE) ~ORDER READ BACK TO: FRANCK TURNER 09/04/24@11:30 Ordering Provider: FRANCK TURNER Report Released Date/Time: Sep 04, 2024 11:33 AM Reporting Lab: [place] [phone] Performing Lab: [place] [phone] ADENOVIRUS (BIOFIRE) Not Detected -Not D etected [...] 04, 2024 06:55 AM [facility] MAGNESIUM PLASMA Specimen Type: PLASM A [...] 03, 2024 11:10 AM Reporting Lab: [place] [facility] [address] [facility] [address] Performing Lab: [place] [address] [facility] [address] MAGNESIUM 1.8 mg/dL 1.6-2.6 Sep 04, 2024 06:55 AM [facility] PANEL 1 PLASMA Specimen Type: PLASM [...] Sep 03, 2024 11:10 AM Reporting Lab: [id number] [address] Performing Lab: [address] CREATININE 0.75 mg/dL 0.72-1.25 [facility] NITROGEN 13 mg/dL 9-25 GLUCOSE 105 mg/dL H 74-100 SODIUM 128 mmol/L L 136-145 POTASSIUM 3.9 mmol/L 3.5-5.1 CHLORIDE 99 mmol/L 98-107 CO2 21 mmol/L L 22-29 CALCIUM 8.0 mg/dL L 8.4-10.2 ANION GAP 8 meq/L 3-19 eGFR (CKD-EPI) >90 Sep 04, 2024 06:02 AM [facility] GLUCOSE-HAND MONITOR CAPILLARY Specime n Type: CAPILLARY Comment: Test performed by: [id number] Meter #: [id number] Ordering Provider: FRANCK TURNER Report Released Date/Time: Sep 04, 2024 06:28 AM Reporting Lab: [address] Performing Lab: [address] GLUCOSE-HAND MONITOR 114 mg/dL H 71-99 Sep 03, 2024 05:19 PM [facility] GLUCOSE-HAND MONITOR CAPILLARY Specime n Type: CAPILLARY Comment: Test performed by: [id number] Meter #: [id number] Ordering Provider: FRANCK TURNER Report Released Date/Time: Sep 03, 2024 05:37 PM Reporting Lab: [address] Performing Lab: [address] [address] GLUCOSE-HAND MONITOR 124 mg/dL H 71-99 Sep 03, 2024 04:41 PM [facility] GLUCOSE-HAND MONITOR CAPILLARY Specime n Type: CAPILLARY Comment: Test performed by: [id number] Meter #: [id number] Ordering Provider: FRANCK TURNER Report Released Date/Time: Sep 03, 2024 06:09 PM Reporting Lab: [address] [address] Performing Lab: [address] [address] GLUCOSE-HAND MONITOR 112 mg/dL H 71-99 Sep 03, 2024 01:35 PM [facility] URINE LYTES URINE Specimen Type : URINE Comment: ~Altered mental status with no identifiable cause Ordering Provider: FRANCK TURNER Report Released Date/Time: Sep 02, 2024 04:44 PM Reporting Lab: [address] [address] Performing Lab: [address] [address] SODIUM 130 mmol/L POTASSIUM 47.6 mmol/L CHLORIDE 137 mmol/L Sep 03, 2024 01:35 PM [facility] UREA NITROGEN URINE Specimen Type : URINE Comment: ~Altered mental status with no identifiable cause Ordering Provider: FRANCK TURNER Report Released Date/Time: Sep 02, 2024 04:44 PM Reporting Lab: [address] [address] Performing Lab: [address] [address] UREA NITROGEN 320 mg/dL Sep 03, 2024 01:35 PM [facility] CREATININE URINE Specimen Type: URINE Comment: ~Altered mental status with no identifiable cause Ordering Provider: FRANCK TURNER Report Released Date/Time: Sep 02, 2024 04:44 PM Reporting Lab: [address] [address] Performing Lab: [address] [address] CREATININE 150.9 mg/dL Sep 03, 2024 01:35 PM [facility] OSMOLALITY URINE Specimen Type: URINE Comment: ~Altered mental status with no identifiable cause Ordering Provider: FRANCK TURNER Report Released Date/Time: Sep 02, 2024 04:44 PM Reporting Lab: [address] [address] Performing Lab: [address] [address] OSMOLALITY 522 mosm/kg 38-1400 Sep 03, 2024 01:35 PM [facility] URINALYSIS WITH REFLEX TO CULTURE URINE Specimen Type: URINE Comment: ~Altered mental status with no identifiable cause Ordering Provider: FRANCK TURNER Report Released Date/Time: Sep 02, 2024 04:44 PM Reporting Lab: [address] [address] Performing Lab: [address] [address] URINE COLOR Yellow Colorless-Yellow APPEARANCE CLOUDY H [...] 03, 2024 11:58 AM [facility] GLUCOSE-HAND MONITOR CAPILLARY Specime n Type: CAPILLARY Comment: AAMIR RN notified Test performed by: [id number] Meter #: [id number] Ordering Provider: FRANCK TURNER Report Released Date/Time: Sep 03, 2024 12:15 PM Reporting Lab: [address] [address] Performing Lab: [address] [address] GLUCOSE-HAND MONITOR 135 mg/dL H Sep 03, 2024 07:09 AM [facility] GLUCOSE-HAND MONITOR CAPILLARY Specime n Type: CAPILLARY Comment: Test performed by: [id number] Meter #: [id number] Ordering Provider: FRANCK TURNER Report Released Date/Time: Sep 03, 2024 07:26 AM Reporting Lab: [address] [address] Performing Lab: [address] [address] GLUCOSE-HAND MONITOR 120 mg/dL H -Sep 03, 2024 07:05 AM [facility] PANEL 1 PLASMA Specimen Type: PLASM [...] 02, 2024 04:29 PM Reporting Lab: [address] [address] Performing Lab: [address] [address] CREATININE 0.82 mg/dL 0.72-1.25 UREA NITROGEN 12 mg/dL 9-25 GLUCOSE 109 mg/dL H 74-100 SODIUM 129 mmol/L L 136-145 POTASSIUM 4.2 mmol/L 3.5-5.1 CHLORIDE 99 mmol/L 98-107 CO2 21 mmol/L L 22-29 CALCIUM 8.1 mg/dL L 8.4-10.2 ANION GAP 9 meq/L 3-19 eGFR (CKD-EPI) Sep 03, 2024 07:05 AM [facility] MAGNESIUM PLASMA Specimen Type: PLASM A [...] 02, 2024 04:29 PM Reporting Lab: [address] [address] Performing Lab: [address] [address] MAGNESIUM 1.7 mg/dL 1.6-2.6 Sep 03, 2024 07:05 AM [facility] GLYCOHEMOGLOBIN BLOOD Specimen Type: BLOOD Comment: Prediabetes: 5.7%-6.4% Diabetes: >= 6.5% [facility] guidelines for A1c interpretation: Glycemic control [...] 8.73 and 9.27. Ref: https://ngsp.org/CAPdata.asp. The in-house L[employer]ix-Oke[employer] D-100 analyzer has a historical CV <= 2%. Contact the laboratory for further performance characteristics of this assay. Ordering Provider: FRANCK TURNER Report Released Date/Time: Sep 02, 2024 04:29 PM Reporting Lab: [address] [address] Performing Lab: [address] [address] GLYCOHEMOGLOBIN 5.6 4.4-5.6 Sep 03, 2024 07:05 AM [facility] CBC/PLT BLOOD Specimen Type: BLOOD No comment entered. Ordering Provider: FRANCK TURNER Report Released Date/Time: Sep 02, 2024 04:29 PM Reporting Lab: [address] [address] Performing Lab: [address] [address] WBC 6.9 10*3/uL 5.0-10.0 RBC 3.48 10*6/uL L 4.6-6.2 HGB 9.5 g/dL L 14.0-18.0 HCT 29.1 L 42.0-52.0 MCV 83.6 fL 80.0-94.0 MCH 27.3 pg 27.0-31.0 MCHC 32.6 g/dL 32.0-36.0 PLT 258 10*3/uL 150-450 MPV 10.3 fL 9.0-13.1 RDW 14.8 11.0-16.0 NRBC 0.0 0.0-0.0 Sep 03, 2024 07:05 AM [facility] OSMOLALITY SERUM Specimen Type: SERUM No comment entered. Ordering Provider: FRANCK TURNER Report Released Date/Time: Sep 02, 2024 04:44 PM Reporting Lab: [address] [address] Performing Lab: [address] [address] OSMOLALITY 271 mosm/kg L 280-300 Sep 02, 2024 08:15 PM [facility] GLUCOSE-HAND MONITOR CAPILLARY Specime n Type: CAPILLARY Comment: AAMIR DEXTER notified Test performed by: [id number] Meter #: [id number] Ordering Provider: FRANCK TURNER Report Released Date/Time: Sep 02, 2024 08:57 PM Reporting Lab: [address] [address] Performing Lab: [address] [address] GLUCOSE-HAND MONITOR 126 mg/dL H 71-99 Sep 02, 2024 06:10 PM [facility] MRSA SURVL NARES DNA NARES Specime [...] 02, 2024 05:12 PM Reporting Lab: [address] [address] Performing Lab: [address] [address] MRSA SURVL NARES DNA Negative Negative Sep 02, 2024 05:36 PM [facility] GLUCOSE-HAND MONITOR CAPILLARY Specime n Type: CAPILLARY Comment: Test performed by: [id number] Meter #: [id number] Ordering Provider: FRACNK TURNER Report Released Date/Time: Sep 02, 2024 05:53 PM Reporting Lab: [address] [address] Performing Lab: [address] [address] GLUCOSE-HAND MONITOR 127 mg/dL H 71-99 Aug 29, 2024 10:04 PM [facility] URINALYSIS WITH REFLEX TO CULTURE URINE Specimen Type: URINE Comment: ~For Test: URINALYSIS WITH REFLEX TO CULTURE ~REORDER Ordering Provider: FELISA COLE Report Released Date/Time: Aug 29, 2024 09:36 PM Reporting Lab: [address] [address] Performing Lab: [address] [address] URINE COLOR Yellow Colorless-Yellow APPEARANCE Clear Clear [...] /[LPF] 0-28 Aug 29, 2024 08:32 PM [facility] HIGH SENSITIVITY TROPONIN I PLASMA Specimen [...] 29, 2024 07:55 PM Reporting Lab: [address] [address] Performing Lab: [address] [address] HIGH SENSITIVITY TROPONIN I 7 4-35 Aug 29, 2024 08:32 PM [facility] CBC/PLT BLOOD Specimen Type: BLOOD No comment entered. Ordering Provider: FELISA COLE Report Released Date/Time: Aug 29, 2024 07:55 PM Reporting Lab: [address] [address] Performing Lab: [address] [address] WBC 11.2 10*3/uL H 5.0-10.0 RBC 3.97 10*6/uL L 4.6-6.2 HGB 10.9 g/dL L 14.0-18.0 HCT 33.5 L 42.0-52.0 MCV 84.4 fL 80.0-94.0 MCH 27.5 pg 27.0-31.0 MCHC 32.5 g/dL 32.0-36.0 PLT 230 10*3/uL 150-450 MPV 10.2 fL 9.0-13.1 RDW 14.6 11.0-16.0 NRBC 0.0 0.0-0.0 Aug 29, 2024 08:32 PM [facility] PANEL 5 PLASMA Specimen Type: PLASM [...] 29, 2024 07:55 PM Reporting Lab: [address] [address] Performing Lab: [address] [address] CREATININE 0.85 mg/dL 0.72-1.25 UREA NITROGEN 15 [...] 18 /min 93 % 0 [place] [facility] Sep 06, 2024 04:27 PM 97.5 F 67 /min 148/67 mm[Hg] 20 /min 93 % 0 [place] [facility] Sep 06, 2024 03:37 PM 0 [place] [facility] Sep 06, 2024 11:30 AM 0 [place] [facility] Sep 06, 2024 10:22 AM 97.4 F 71 /min 102/49 mm[Hg] 18 /min 93 % 0 [place] [facility] Advance Directives: All [...] 08, 2024 ADVANCE DIRECTIVE DISCUSSION [facility] Radiology Reports: +/- 30 days of [...] BRAIN W & W/O: LUIS MANUEL PERDOMO [id number] -1945 M Exm Date: SEP 06, 2024@13:40 Req Phys: FRANCK TURNER Pat Loc: 5-MED/TEL/09-06-2024@19:09 Img Loc: [facility] Service: [place] [address] (Case [id number] COMPLETE) MRI BRAIN W & W/O (MRI Detailed) CPT:46716 Contrast Media : Gadolinium Reason for Study: SEE CLINICAL HISTORY Pharmaceutical: GADOTERIDOL 279.3MG/ML 20ML INJ, 19ml Clinical History: MRI Screening (Required): IMPLANTED DEVICE DOCUMENTATION IMPLANTED DEVICE DOCUMENTATION NOT FOUND Does the have any Cardiac Implants? None Does the have any implanted stimulators? None Does the [place] have cochlear implants? No Does the have [...] 06, 2024 Date Verified: SEP 06, 2024 Clinical Nurse Educator E-Sig: Report: MRI brain without and with [...] Staff: ARCENIO LEYVA, Staff Radiologist Verified by repairer controller tester for ARCENIO LEYVA /ARCENIO AVILA-[facility] Sep 06, 2024 01:40 PM MRI C SPINE W & W/ O CONTRAST(FURTHER SEQUENCES): LUIS MANUEL PERDOMO [id number] -1945 M Exm Date: SEP 06, 2024@13:40 Req Phys: FRANCK TURNERSav Pat Loc: 5-MED/TEL/09-07-2024@06:42 Img Loc: [facility] Service: [place] [address] (Case [id number] COMPLETE) MRI C SPINE W & W/O CONTRAST(FURT(MRI Detailed) CPT:65155 Contrast Media : Gadolinium Reason for Study: [...] the have cochlear implants? No Does the [place] have Cerebral aneurysm clip(s)? I don't know [...] 07, 2024 Date Verified: SEP 07, 2024 Clinical Nurse Educator E-Sig: Report: EXAMINATION: MRI OF THE CERVICAL [...] Interpreting Staff: HUANG TAI, Radiologist Verified by repairer controller tester for HUANG TAI /HUANG WHEATLEY-Sav [facility] Sep 03, 2024 10:45 AM CHEST SINGLE(1) EW: LUIS MANUEL PERDOMO [id number] -1945 M Exm Date: SEP 03, 2024@10:45 Req Phys: FRANCK TURNRE Pat Loc: 5-MED/TEL/09-03-2024@10:56 Img Loc: [facility] Service: [place] [address] (Case [id number] COMPLETE)CHEST SINGLE(1) VIEW (RAD Detailed) CPT:16295 Proc Modifiers : PORTABLE EXAM Reason for Study: Eval volume status Clinical History: Report Status: Verified Date Reported: SEP 03, 2024 Date Verified: SEP 03, 2024 Clinical Nurse Educator E-Sig: Report: EXAMINATION: SINGLE VIEW CHEST CLINICAL [...] Interpreting Staff: HUANG TAI, Radiologist Verified by repairer controller tester for HUANG TAI /HUANG WHEATLEY-D [facility] Aug 29, 2024 08:[address] HEAD W/O CONT: LUIS MANUEL PERDOMO FABIAN [id number] -1945 M Exm Date: AUG 29, 2024@20:28 Req Phys: FELISA COLE Loc: ED/4P-12A (Req'g Loc) Img Loc: CT SCAN Service: Unknown [place] [id number] (Case [id number] COMPLETE) CT HEAD W/O CONT (CT Detailed) CPT:16936 Reason for Study: SEE CLINICAL HISTORY Clinical History: REASON FOR SEND OUT: ATTENDING PHYSICIAN NAME: New transient neurological s/s - suspected TIA HISTORY/REASON FOR EXAM: confusion Report Status: Verified Date Reported: AUG 29, 2024 Date Verified: AUG 29, 2024 Clinical Nurse Educator E-Sig: Report: HISTORY confusion COMPARISON No prior [...] Staff: ABDIRAHMAN CROW, Staff Physician Verified by repairer controller tester for ABDIRAHMAN CROW /GUERITA CROW,ABDIRAHMAN RUBI-D [facility] Pathology Reports: +/- 30 days [...] Reporting Lab: [facility] [CLIA# [id number]] [address] [place] [id number] Accession [UID]: [id number] [[id number]] Received: Sep 03, 2024@14:02 Collection sample: URINE, [...] Performed By: [facility] [CLIA# [id number]] [address] [place] [address] [id number] MAGDY [facility]ABRESE [facility] Sep 02, 2024 06:00 PM LR MICROBIOLOGY RE PORT: Reporting Lab: [facility] [CLIA# [id number]] [address] [place] [address] Accession [UID]: [id number] [[id number]] Received: Sep 02, 2024@18:07 Collection sample: BLD CULTURE BOTTLES Collection date: Sep 02, 2024 18:00 Site/Specimen: BLOOD Provider: FRANCK TURNER Comment on specimen: L HAND Test(s) ordered: CULTURE, BLOOD................ completed: Sep 08, 2024 * BACTERIOLOGY FINAL REPORT => Sep 08, 2024 08:25 TECH CODE: [id number] Bacteriology Remark(s): Blood culture status=NO GROWTH (unless notified otherwise) 09/03/2024 AEROBIC: NO GROWTH ANAEROBIC: NO GROWTH =--=--=--=--=--=--=--=--=--=-- =--=--=--=--=--=--=--=--=--=-- =--=--=--=--=--=-- Performing Laboratory: Bacteriology Report Performed By: [facility] [CLIA# [id number]] [address] [place] [address] MAGDY CALABRESE [facility] Aug 29, 2024 10:18 PM LR MICROBIOLOGY RE PORT: Reporting Lab: [facility] [CLIA# [id number]] [address] [place] [address] Accession [UID]: [id number] [[id number]] Received: Aug 29, 2024@22:18 Collection sample: URINE, CLEAN CATCH Collection date: Aug 29, 2024 22:18 Site/Specimen: URINE Provider: FELISA COLE Test(s) ordered: CULTURE, URINE................ completed: Aug 31, 2024 09:51 * BACTERIOLOGY FINAL REPORT => Aug 31, 2024 09:51 TECH CODE: [id number] Bacteriology Remark(s): NO GROWTH 08/30/2024 <10,000 CFU/ML. 08/31/2024 =--=--=--=--=--=--=--=--=--=-- =--=--=--=--=--=--=--=--=--=-- =--=--=--=--=--=-- Performing Laboratory: Bacteriology Report Performed By: [facility] [CLIA# [id number]] [address] [place] [address] MAGDY CALABRESE-[facility]
--- OUTSIDE RECORDS SUMMARY | 2024-09-06 04:29 | XMS_ITS ---
[place] DAILY HOSPITALIZATION DATA [facility] Encounter Summary Created on: September 22, 2024 LUIS MANUEL PERDOMO : 1945 Sex: Male Author Name [facility] Organization [facility] Address [address] [place] [address] Care Team Providers Care Assembly Cleaner Name Role Phone YULISSA HENDERSON Primary [...] PLAN F Mar 24, 2014 PLAN F [id number] [phone] LUIS MANUEL PERDOMO PATIENT [facility] [place] BLUECARD PREFERRED PROVIDER ORGANIZAT ION (PPO) [facility] SLE Sep 21, 2012 [id number] [phone] LUIS MANUEL PERDOMO PATIENT [employer] ([id number]) PRESCRIPT ION WL3A Sep 21, 2012 [id number] [phone] LUIS MANUEL PERDOMO PATIENT MEDICARE (WNR) MEDICARE (M) PART B Sep 21, 2012 PART B [id number] [id number] NOEMI PERDOMO PATIENT MEDICARE (WNR) MEDICARE (M) PART A Jan 22, 2011 PART A [id number] LEANNE, NOEMI PATIENT MEDICARE PART D (WNR) MEDICARE (M) PART D Mar 24, 2014 PART D [id number] LUIS MANUEL PERDOMO PATIENT Selected Encounter This section includes the information on record at [place] for the Encounter. Date/Time Encounter Type Encounter Description Reason Pro vider Source Sep 06, 2024 08:29 AM Inpatient Visit DAILY HOSPITALIZATION DATA [facility] Encounter Template Text not used by [place] Plan of Treatment: Future Appointments (+ 6 months) and Future Tests (+/- 45 days) The Plan of Treatment section includes [facility] care [facility] the [facility] [place] [facility] This section includes [...] 13, 2024 08:00 AM [facility] Sep 30, 2024 01:30 PM AMBULATORY - SURGERY [facility] Active, Pending, and Scheduled Orders [...] Sep 13, 2024 01:33 PM Consult Order [facility] SKILLED HOME CARE Cons Cylinder Ste[employer] Choice [facility] Lab Results: +/- [...] Sep 09, 2024 12:16 PM [facility] GLUCOSE-HAND MONITOR CAPILLARY Specimen Type: CAPILLARY Comment: Test performed by: [id number] Meter #: [id number] Ordering Provider: FRANCK TURNER Report Released Date/Time: Sep 09, 2024 12:33 PM Reporting Lab: [address] [address] Performing Lab: [address] [address] GLUCOSE-HAND MONITOR 116 mg/dL H Sep 09, 2024 06:07 AM [facility] GLUCOSE-HAND MONITOR CAPILLARY Specime n Type: CAPILLARY Comment: Test performed by: [id number] Meter #: [id number] Ordering Provider: FRANCK UTRNER Report Released Date/Time: Sep 09, 2024 08:17 AM Reporting Lab: [address] [address] Performing Lab: [address] [address] GLUCOSE-HAND MONITOR 112 mg/dL H Sep 08, 2024 09:13 PM [facility] GLUCOSE-HAND MONITOR CAPILLARY Specime n Type: CAPILLARY Comment: Test performed by: [id number] Meter #: [id number] Ordering Provider: FRANCK TURNER Report Released Date/Time: Sep 08, 2024 09:31 PM Reporting Lab: [address] [address] Performing Lab: [address] [address] GLUCOSE-HAND MONITOR 107 mg/dL H Sep 08, 2024 03:49 PM [facility] GLUCOSE-HAND MONITOR CAPILLARY Specime n Type: CAPILLARY Comment: AAMIR RN notified Test performed by: [id number] Meter #: [id number] Ordering Provider: FRANCK TURNER Report Released Date/Time: Sep 08, 2024 04:33 PM Reporting Lab: [address] [address] Performing Lab: [address] [address] GLUCOSE-HAND MONITOR 162 mg/dL H Sep 08, 2024 11:43 AM [facility] GLUCOSE-HAND MONITOR CAPILLARY Specime n Type: CAPILLARY Comment: AAMIR RN notified Test performed by: [id number] Meter #: [id number] Ordering Provider: FRANCK TURNER Report Released Date/Time: Sep 08, 2024 12:03 PM Reporting Lab: [address] [address] Performing Lab: [address] [address] GLUCOSE-HAND MONITOR 133 mg/dL H Sep 08, 2024 06:13 AM [facility] GLUCOSE-HAND MONITOR CAPILLARY Specime n Type: CAPILLARY Comment: Test performed by: [id number] Meter #: [id number] Ordering Provider: FRANCK TURNER Report Released Date/Time: Sep 08, 2024 06:46 AM Reporting Lab: [address] [address] Performing Lab: [address] [address] GLUCOSE-HAND MONITOR 104 mg/dL H Sep 07, 2024 07:59 PM [facility] GLUCOSE-HAND MONITOR CAPILLARY Specime n Type: CAPILLARY Comment: Test performed by: [id number] Meter #: [id number] Ordering Provider: FRANKC TURNER Report Released Date/Time: Sep 07, 2024 09:05 PM Reporting Lab: [address] [address] Performing Lab: [address] [address] GLUCOSE-HAND MONITOR 107 mg/dL H Sep 07, 2024 04:39 PM [facility] GLUCOSE-HAND MONITOR CAPILLARY Specime n Type: CAPILLARY Comment: Test performed by: [id number] Meter #: [id number] Ordering Provider: FRANCK TURNER Report Released Date/Time: Sep 07, 2024 05:09 PM Reporting Lab: [address] [address] Performing Lab: [address] [address] GLUCOSE-HAND MONITOR 105 mg/dL H Sep 07, 2024 11:41 AM [facility] GLUCOSE-HAND MONITOR CAPILLARY Specime n Type: CAPILLARY Comment: Test performed by: [id number] Meter #: [id number] Ordering Provider: FRANCK TURNER Report Released Date/Time: Sep 07, 2024 12:41 PM Reporting Lab: [address] [address] Performing Lab: [address] [address] GLUCOSE-HAND MONITOR 144 mg/dL H Sep 07, 2024 05:56 AM [facility] GLUCOSE-HAND MONITOR CAPILLARY Specime n Type: CAPILLARY Comment: Test performed by: [id number] Meter #: [id number] Ordering Provider: FRANCK TURNER Report Released Date/Time: Sep 07, 2024 06:31 AM Reporting Lab: [address] [address] Performing Lab: [address] [address] GLUCOSE-HAND MONITOR 96 mg/dL Sep 06, 2024 08:10 PM [facility] GLUCOSE-HAND MONITOR CAPILLARY Specime n Type: CAPILLARY Comment: Test performed by: [id number] Meter #: [id number] Ordering Provider: FRANCK TURNER Report Released Date/Time: Sep 06, 2024 08:52 PM Reporting Lab: [address] [address] Performing Lab: [address] [address] GLUCOSE-HAND MONITOR 124 mg/dL H Sep 06, 2024 04:27 PM [facility] GLUCOSE-HAND MONITOR CAPILLARY Specime n Type: CAPILLARY Comment: Test performed by: [id number] Meter #: [id number] Ordering Provider: FRANCK TURNER Report Released Date/Time: Sep 06, 2024 05:15 PM Reporting Lab: [address] [address] Performing Lab: [address] [address] GLUCOSE-HAND MONITOR 107 mg/dL H Sep 06, 2024 12:12 PM [facility] GLUCOSE-HAND MONITOR CAPILLARY Specime n Type: CAPILLARY Comment: Test performed by: [id number] Meter #: [id number] Ordering Provider: FRANCK TURNER Report Released Date/Time: Sep 06, 2024 12:29 PM Reporting Lab: [address] [address] Performing Lab: [address] [address] GLUCOSE-HAND MONITOR 181 mg/dL H -Sep 06, 2024 06:13 AM [facility] GLUCOSE-HAND MONITOR CAPILLARY Specime n Type: CAPILLARY Comment: Test performed by: [id number] Meter #: [id number] Ordering Provider: FRANCK TURNER Report Released Date/Time: Sep 06, 2024 06:36 AM Reporting Lab: [address] [address] Performing Lab: [address] [address] GLUCOSE-HAND MONITOR 102 mg/dL H Sep 05, 2024 08:47 PM [facility] GLUCOSE-HAND MONITOR CAPILLARY Specime n Type: CAPILLARY Comment: Test performed by: [id number] Meter #: [id number] Ordering Provider: FRANCK TURNER Report Released Date/Time: Sep 06, 2024 02:13 AM Reporting Lab: [address] [address] Performing Lab: [address] [address] GLUCOSE-HAND MONITOR 103 mg/dL H Sep 05, 2024 04:40 PM [facility] GLUCOSE-HAND MONITOR CAPILLARY Specime n Type: CAPILLARY Comment: AAMIR RN notified Test performed by: [id number] Meter #: [id number] Ordering Provider: FRANCK TURNER Report Released Date/Time: Sep 05, 2024 05:11 PM Reporting Lab: [address] [address] Performing Lab: [address] [address] GLUCOSE-HAND MONITOR 113 mg/dL H Sep 05, 2024 12:06 PM [facility] GLUCOSE-HAND MONITOR CAPILLARY Specime n Type: CAPILLARY Comment: Test performed by: [id number] Meter #: [id number] Ordering Provider: FRANCK TURNER Report Released Date/Time: Sep 05, 2024 12:23 PM Reporting Lab: [address] [address] Performing Lab: [address] [address] GLUCOSE-HAND MONITOR 115 mg/dL H Sep 05, 2024 06:26 AM [facility] GLUCOSE-HAND MONITOR CAPILLARY Specime n Type: CAPILLARY Comment: AAMIR Correction Dose Test performed by: [id number] Meter #: [id number] Ordering Provider: FRANCK TURNER Report Released Date/Time: Sep 05, 2024 06:43 AM Reporting Lab: [address] [address] Performing Lab: [address] [address] GLUCOSE-HAND MONITOR 111 mg/dL H Sep 04, 2024 08:59 PM [facility] GLUCOSE-HAND MONITOR CAPILLARY Specime n Type: CAPILLARY Comment: AAMIR RN notified Test performed by: [id number] Meter #: [id number] Ordering Provider: FRANCK TURNER Report Released Date/Time: Sep 04, 2024 09:36 PM Reporting Lab: [address] [address] Performing Lab: [address] [address] GLUCOSE-HAND MONITOR 123 mg/dL H Sep 04, 2024 04:41 PM [facility] GLUCOSE-HAND MONITOR CAPILLARY Specime n Type: CAPILLARY Comment: AAMIR RN notified Test performed by: [id number] Meter #: [id number] Ordering Provider: FRANCK TURNER Report Released Date/Time: Sep 04, 2024 05:03 PM Reporting Lab: [address] [address] Performing Lab: [address] [address] GLUCOSE-HAND MONITOR 118 mg/dL H Sep 04, 2024 12:36 PM [facility] GLUCOSE-HAND MONITOR CAPILLARY Specime n Type: CAPILLARY Comment: AAMIR RN notified Test performed by: [id number] Meter #: [id number] Ordering Provider: FRANCK TURNER Report Released Date/Time: Sep 04, 2024 12:53 PM Reporting Lab: [address] [address] Performing Lab: [place] [address] GLUCOSE-HAND MONITOR 129 mg/dL H 71-99 Sep 04, 2024 12:03 PM [facility] RESPIRATORY VIRUS PANEL (BIOFIRE) NASOPHARYN X Specimen Type: NASOPHARYNX Comment: ~For Test: RESPIRATORY VIRUS PANEL (BIOFIRE) ~ORDER READ BACK TO: FRANCK TURNER 09/04/24@11:30 Ordering Provider: FRANCK TURNER Report Released Date/Time: Sep 04, 2024 11:33 AM Reporting Lab: [place] [phone] Performing Lab: [place] [phone] ADENOVIRUS (BIOFIRE) Not Detected -Not D etected [...] 03, 2024 11:10 AM Reporting Lab: [facility] [address] [facility] [address] Performing Lab: [place] [address] [facility] [address] MAGNESIUM 1.8 mg/dL 1.6-2.6 Sep 04, 2024 [...] Sep 03, 2024 11:10 AM Reporting Lab: [address] [address] Performing Lab: [address] CREATININE 0.75 mg/dL 0.72-1.25 UREA [...] n Type: CAPILLARY Comment: Test performed by: [id number] Meter #: [id number] Ordering Provider: FRANCK TURNER Report Released Date/Time: Sep 04, 2024 06:28 AM Reporting Lab: [address] Performing Lab: [address] GLUCOSE-HAND MONITOR 114 mg/dL H 71-99 Sep 03, 2024 05:19 PM [facility] GLUCOSE-HAND MONITOR CAPILLARY Specime n Type: CAPILLARY Comment: Test performed by: [id number] Meter #: [id number] Ordering Provider: FRANCK TURNER Report Released Date/Time: Sep 03, 2024 05:37 PM Reporting Lab: [address] Performing Lab: [address] [address] GLUCOSE-HAND MONITOR 124 mg/dL H 71-99 Sep 03, 2024 04:41 PM [facility] GLUCOSE-HAND MONITOR CAPILLARY Specime n Type: CAPILLARY Comment: Test performed by: [id number] Meter #: [id number] Ordering Provider: FRANCK TURNER Report Released Date/Time: Sep 03, 2024 06:09 PM Reporting Lab: [address] [address] Performing Lab: [address] [address] GLUCOSE-HAND MONITOR 112 mg/dL H 71-99 Sep 03, 2024 01:35 PM [facility] URINE LYTES URINE Specimen Type : URINE Comment: ~Altered mental status with no identifiable cause Ordering Provider: FRANCK TURNER Report Released Date/Time: Sep 02, 2024 04:44 PM Reporting Lab: [address] [address] Performing Lab: [address] [address] SODIUM 130 mmol/L POTASSIUM 47.6 mmol/L CHLORIDE 137 mmol/L Sep 03, 2024 01:35 PM [facility] CREATININE URINE Specimen Type: URINE Comment: ~Altered mental status with no identifiable cause Ordering Provider: FRANCK TURNER Report Released Date/Time: Sep 02, 2024 04:44 PM Reporting Lab: [address] [address] Performing Lab: [address] [address] CREATININE 150.9 mg/dL Sep 03, 2024 01:35 PM [facility] UREA NITROGEN URINE Specimen Type : URINE Comment: ~Altered mental status with no identifiable cause Ordering Provider: FRANCK TURNER Report Released Date/Time: Sep 02, 2024 04:44 PM Reporting Lab: [address] [address] Performing Lab: [address] [address] UREA NITROGEN 320 mg/dL Sep 03, 2024 01:35 PM [facility] OSMOLALITY URINE Specimen Type: URINE Comment: ~Altered mental status with no identifiable cause Ordering Provider: FRANCK TURNER Report Released Date/Time: Sep 02, 2024 04:44 PM Reporting Lab: [address] [address] Performing Lab: [address] [address] OSMOLALITY 522 mosm/kg 38-1400 Sep 03, 2024 01:35 PM [facility] URINALYSIS WITH REFLEX TO CULTURE URINE Specimen Type: URINE Comment: ~Altered mental status with no identifiable cause Ordering Provider: FRANCK TURNER Report Released Date/Time: Sep 02, 2024 04:44 PM Reporting Lab: [address] [address] Performing Lab: [address] [address] URINE COLOR Yellow Colorless-Yellow APPEARANCE CLOUDY H [...] 0-28 Sep 03, 2024 11:58 AM [facility] GLUCOSE-HAND MONITOR CAPILLARY Specime n Type: CAPILLARY Comment: AAMIR RN notified Test performed by: [id number] Meter #: [id number] Ordering Provider: FRANCK TURNER Report Released Date/Time: Sep 03, 2024 12:15 PM Reporting Lab: [address] [address] Performing Lab: [address] [address] GLUCOSE-HAND MONITOR 135 mg/dL H Sep 03, 2024 07:09 AM [facility] GLUCOSE-HAND MONITOR CAPILLARY Specime n Type: CAPILLARY Comment: Test performed by: [id number] Meter #: [id number] Ordering Provider: FRANCK TURNER Report Released Date/Time: Sep 03, 2024 07:26 AM Reporting Lab: [address] [address] Performing Lab: [address] [address] GLUCOSE-HAND MONITOR 120 mg/dL H -Sep 03, 2024 07:05 AM [facility] CBC/PLT BLOOD Specimen Type: BLOOD No comment entered. Ordering Provider: FRANCK TURNER Report Released Date/Time: Sep 02, 2024 04:29 PM Reporting Lab: [address] [address] Performing Lab: [address] [address] WBC 6.9 10*3/uL 5.0-10.0 RBC 3.48 10*6/uL [...] Sep 02, 2024 04:29 PM Reporting Lab: [address] [address] Performing Lab: [address] [address] MAGNESIUM 1.7 mg/dL 1.6-2.6 Sep 03, 2024 [...] Sep 02, 2024 04:29 PM Reporting Lab: [address] [address] Performing Lab: [address] [address] CREATININE 0.82 mg/dL 0.72-1.25 UREA NITROGEN 12 [...] BLOOD Comment: Prediabetes: 5.7%-6.4% Diabetes: >= 6.5% [facility] guidelines for A1c interpretation: Glycemic control targets are based on Shared Decision Making between clinicians and patients. Criteria used to establish an A1c target recommendation can be found at https://www.de.gov/qualityandpatientsafety/ and include the use of result accuracy [...] 8.73 and 9.27. Ref: https://ngsp.org/CAPdata.asp. The in-house CounterStorm-Tripnary D-100 analyzer has a historical CV <= 2%. Contact the laboratory for further performance characteristics of this assay. Ordering Provider: FRANCK TURNER Report Released Date/Time: Sep 02, 2024 04:29 PM Reporting Lab: [address] [address] Performing Lab: [place] [phone] GLYCOHEMOGLOBIN 5.6 4.4-5.6 Sep 03, 2024 07:05 AM [facility] OSMOLALITY SERUM Specimen Type: SERUM No comment entered. Ordering Provider: FRANCK TURNER Report Released Date/Time: Sep 02, 2024 04:44 PM Reporting Lab: [address] [address] Performing Lab: [address] [address] OSMOLALITY 271 mosm/kg L 280-300 Sep 02, 2024 08:15 PM [facility] GLUCOSE-HAND MONITOR CAPILLARY Specime n Type: CAPILLARY Comment: AAMIR DEXTER notified Test performed by: [id number] Meter #: [id number] Ordering Provider: FRANCK TURNER Report Released Date/Time: Sep 02, 2024 08:57 PM Reporting Lab: [address] [address] Performing Lab: [address] [address] GLUCOSE-HAND MONITOR 126 mg/dL H 71-99 Sep [...] Sep 02, 2024 05:12 PM Reporting Lab: [address] [address] Performing Lab: [address] [address] MRSA SURVL NARES DNA Negative Negative Sep 02, 2024 05:36 PM [facility] GLUCOSE-HAND MONITOR CAPILLARY Specime n Type: CAPILLARY Comment: Test performed by: [id number] Meter #: [id number] Ordering Provider: FRANCK TURNER Report Released Date/Time: Sep 02, 2024 05:53 PM Reporting Lab: [address] [address] Performing Lab: [address] [address] GLUCOSE-HAND MONITOR 127 mg/dL H 71-99 Aug 29, 2024 10:04 PM [facility] URINALYSIS WITH REFLEX TO CULTURE URINE Specimen Type: URINE Comment: ~For Test: URINALYSIS WITH REFLEX TO CULTURE ~REORDER Ordering Provider: FELISA COLE Report Released Date/Time: Aug 29, 2024 09:36 PM Reporting Lab: [address] [address] Performing Lab: [address] [address] URINE COLOR Yellow Colorless-Yellow APPEARANCE Clear Clear [...] /[LPF] 0-28 Aug 29, 2024 08:32 PM [facility] HIGH SENSITIVITY TROPONIN I PLASMA [...] Aug 29, 2024 07:55 PM Reporting Lab: [address] [address] Performing Lab: [address] [address] HIGH SENSITIVITY TROPONIN I 7 4-35 Aug 29, 2024 08:32 PM [facility] CBC/PLT BLOOD Specimen Type: BLOOD No comment entered. Ordering Provider: FELISA COLE Report Released Date/Time: Aug 29, 2024 07:55 PM Reporting Lab: [address] [address] Performing Lab: [address] [address] WBC 11.2 10*3/uL H 5.0-10.0 RBC 3.97 10*6/uL L 4.6-6.2 HGB 10.9 g/dL L 14.0-18.0 HCT 33.5 L 42.0-52.0 MCV 84.4 fL 80.0-94.0 MCH 27.5 pg 27.0-31.0 MCHC 32.5 g/dL 32.0-36.0 PLT 230 10*3/uL 150-450 MPV 10.2 fL 9.0-13.1 RDW 14.6 11.0-16.0 NRBC 0.0 0.0-0.0 Aug 29, 2024 08:32 PM [facility] PANEL 5 PLASMA Specimen Type: [...] Aug 29, 2024 07:55 PM Reporting Lab: [address] [address] Performing Lab: [address] [address] CREATININE 0.85 mg/dL 0.72-1.25 UREA NITROGEN 15 [...] 18 /min 93 % 0 [place] Sep 06, 2024 04:27 PM 97.5 F 67 /min 148/67 mm[Hg] 20 /min 93 % 0 [place] [facility] Sep 06, 2024 03:37 PM 0 [place] [facility] Sep 06, 2024 11:30 AM 0 [place] Sep 06, 2024 10:22 AM 97.4 F 71 /min 102/49 mm[Hg] 18 /min 93 % 0 [place] [facility] Advance Directives: All historical and [...] Source Mar 08, 2024 ADVANCE DIRECTIVE DISCUSSION [facility] Radiology Reports: +/- 30 days of [...] BRAIN W & W/O: LUIS MANUEL PERDOMO [id number] -1945 M Exm Date: SEP 06, 2024@13:40 Req Phys: FRANCK TURNER Pat Loc: 5-MED/TEL/09-06-2024@19:09 Img Loc: [facility] Service: [place] [address] (Case [id number] COMPLETE) MRI BRAIN W & W/O (MRI Detailed) CPT:62828 Contrast Media : Gadolinium Reason for Study: SEE CLINICAL HISTORY Pharmaceutical: GADOTERIDOL 279.3MG/ML 20ML INJ, 19ml Clinical History: MRI Screening (Required): IMPLANTED DEVICE DOCUMENTATION IMPLANTED DEVICE DOCUMENTATION NOT FOUND Does the have any Cardiac Implants? None Does the have any implanted stimulators? None Does the [place] have cochlear implants? No Does the have [...] 06, 2024 Date Verified: SEP 06, 2024 Ballast Regulator Operator E-Sig: Report: MRI brain without and [...] Staff: ARCENIO LEYVA, Staff Radiologist Verified by patent counsel for ARCENIO LEYVA /ARCENIO AVILA[facility] Sep 06, 2024 01:40 PM MRI C SPINE W & W/ O CONTRAST(FURTHER SEQUENCES): LUIS MANUEL PERDOMO [id number] -1945 M Exm Date: SEP 06, 2024@13:40 Req Phys: FRANCK TURNERSav Pat Loc: 5-MED/TEL/09-07-2024@06:42 Img Loc: [facility] Service: [place] [address] (Case [id number] COMPLETE) MRI C SPINE W & W/O CONTRAST(FURT(MRI Detailed) CPT:38683 Contrast Media : Gadolinium Reason for Study: [...] the have cochlear implants? No Does the [place] have Cerebral aneurysm clip(s)? I don't know [...] 07, 2024 Date Verified: SEP 07, 2024 Ballast Regulator Operator E-Sig: Report: EXAMINATION: MRI OF THE [...] Interpreting Staff: HUANG TAI, Radiologist Verified by patent counsel for HUANG TAI /HUANG [facility]-Sav [facility] Sep 03, 2024 10:45 AM CHEST SINGLE(1) EW: LUIS MANUEL PERDOMO [id number] -1945 M Exm Date: SEP 03, 2024@10:45 Req Phys: FRANCK TURNER Pat Loc: 5-MED/TEL/09-03-2024@10:56 Img Loc: [facility] RADIOLOGY Service: [place] [address] (Case [id number] COMPLETE)CHEST SINGLE(1) VIEW (RAD Detailed) CPT:89359 Proc Modifiers : PORTABLE EXAM Reason for Study: Eval volume status Clinical History: Report Status: Verified Date Reported: SEP 03, 2024 Date Verified: SEP 03, 2024 Ballast Regulator Operator E-Sig: Report: EXAMINATION: SINGLE VIEW CHEST [...] Interpreting Staff: HUANG TAI, Radiologist Verified by patent counsel for HUANG TAI /HUANG [facility] Aug 29, 2024 08:[address] HEAD W/O CONT: LUIS MANUEL PERDOMO FABIAN [id number] -1945 M Exm Date: AUG 29, 2024@20:28 Req Phys: FELISA COLE Loc: ED/4P-12A (Req'g Loc) Img Loc: CT SCAN Service: Unknown [place] [id number] (Case [id number] COMPLETE) CT HEAD W/O CONT (CT Detailed) CPT:45949 Reason for Study: SEE CLINICAL HISTORY Clinical History: REASON FOR SEND OUT: ATTENDING PHYSICIAN NAME: New transient neurological s/s - suspected TIA HISTORY/REASON FOR EXAM: confusion Report Status: Verified Date Reported: AUG 29, 2024 Date Verified: AUG 29, 2024 Ballast Regulator Operator E-Sig: Report: HISTORY confusion COMPARISON No [...] Staff: ABDIRAHMAN CROW, Staff Physician Verified by patent counsel for ABDIRAHMAN CROW /GUERITA CROW,ABDRIAHMAN RUBI-D [facility] Pathology Reports: +/- 30 days [...] comes from all [place] treatment facilities. Date/Time Pathology Report Provider Source Sep 03, 2024 01:35 PM LR MICROBIOLOGY RE [place]: Reporting Lab: [facility] [CLIA# [id number]] [address] [place] [id number] Accession [UID]: [id number] [[id number]] Received: Sep 03, 2024@14:02 Collection sample: URINE, [...] Performed By: [facility] [CLIA# [id number]] [address] [place] [id number] [facility] Sep 02, 2024 06:00 PM LR MICROBIOLOGY RE [place]: Reporting Lab: [facility] [CLIA# [id number]] [address] [place] [address] Accession [UID]: [id number] [[id number]] Received: Sep 02, 2024@18:07 Collection sample: BLD CULTURE BOTTLES Collection date: Sep 02, 2024 18:00 Site/Specimen: BLOOD Provider: FRANCK TURNER Comment on specimen: L HAND Test(s) ordered: CULTURE, BLOOD................ completed: Sep 08, 2024 * BACTERIOLOGY FINAL REPORT => Sep 08, 2024 08:25 TECH CODE: [id number] Bacteriology Remark(s): Blood culture status=NO GROWTH (unless notified otherwise) 09/03/2024 AEROBIC: NO GROWTH ANAEROBIC: NO GROWTH =--=--=--=--=--=--=--=--=--=-- =--=--=--=--=--=--=--=--=--=-- =--=--=--=--=--=-- Performing Laboratory: Bacteriology Report Performed By: [facility] [CLIA# [id number]] [address] [place] [address] MAGDY CALABRESE [facility] Aug 29, 2024 10:18 PM LR MICROBIOLOGY RE PORT: Reporting Lab: [facility] [CLIA# [id number]] [address] [place] [address] Accession [UID]: [id number] [[id number]] Received: Aug 29, 2024@22:18 Collection sample: URINE, CLEAN CATCH Collection date: Aug 29, 2024 22:18 Site/Specimen: URINE Provider: FELISA COLE Test(s) ordered: CULTURE, URINE................ completed: Aug 31, 2024 09:51 * BACTERIOLOGY FINAL REPORT => Aug 31, 2024 09:51 TECH CODE: [id number] Bacteriology Remark(s): NO GROWTH 08/30/2024 <10,000 CFU/ML. 08/31/2024 =--=--=--=--=--=--=--=--=--=-- =--=--=--=--=--=--=--=--=--=-- =--=--=--=--=--=-- Performing Laboratory: Bacteriology Report Performed By: [facility] [CLIA# [id number]] [address] [place] [address] [facility]
--- OUTSIDE RECORDS SUMMARY | 2024-09-06 05:40 | XMS_ITS | Encounter Summary ---
Author Name [facility] [place] Organization [facility] [place] [place] Address [address] [place] [address] Care Team Providers Care Water Service Supervisor Name Role Phone YULISSA HENDERSON Primary [...] PLAN F Mar 24, 2014 PLAN F [id number] LUIS MANUEL PERDOMO PATIENT [facility] [place] [facility] PREFERRED PROVIDER ORGANIZAT ION (PPO) [facility] Sep 21, 2012 [id number] [phone] LUIS MANUEL PERDOMO PATIENT [employer] ([id number]) PRESCRIPT ION [id number] Sep 21, 2012 [id number] LUIS MANUEL PERDOMO PATIENT MEDICARE (WNR) MEDICARE (M) PART B Sep 21, 2012 PART B [id number] NOEMI PERDOMO PATIENT MEDICARE (WNR) MEDICARE (M) PART A Jan 22, 2011 PART A [id number] NOEMI PERDOMO PATIENT MEDICARE PART D (WNR) MEDICARE (M) PART D Mar 24, 2014 PART D [id number] LUIS MANUEL PERDOMO PATIENT Selected Encounter This section includes the information on record at [place] for the Encounter. Date/Time Encounter Type Encounter Description Reason Provider Source Sep 06, 2024 09:40 AM EDU&TRN PT SELF-MGMT NQHP 1 PHYSICAL THERAPY ICD-10-CM R26.2 Difficulty in walking, not elsewhere classified YI COWART IHStephen Encounter Template Text not used by [place] Assessments - Encounter Diagnoses This section includes the primary and secondary diagnoses documented for the Encounter. Date/Time Primary/Secondary Diagnosis Diagnosis Name Provider Source Sep 06, 2024 12:07 PM PRIMARY Difficulty in walking, not elsewhere classified [facility] Plan of Treatment: Future Appointments (+ 6 months) and Future Tests (+/- 45 days) The Plan of Treatment section includes future care activities for the patient from all [place] [facility]. This section includes future appointments [...] AM AMBULATORY - NONE [place] [facility] Sep 30, 2024 01:30 PM AMBULATORY - SURGERY [place] [facility] Active, Pending, and Scheduled Orders This section includes a listing of several types of active, pending, and scheduled orders, including clinic medications orders, diagnostic test orders, procedure orders and consult orders; where the start date of the order is 45 days before the date of the Encounter or 45 days after the date of theEncounter. The data comes from all [place] treatment facilities. Test Date/Time Test Type Test Details Facility Name Sep 13, 2024 01:33 PM Consult Order [facility] Cons Motorcycle Police's Choice [facility] Lab Results: +/- 30 days of [...] Type Comment Sep 09, 2024 12:16 PM [facility] GLUCOSE-HAND MONITOR CAPILLARY Specimen Type: CAPILLARY Comment: Test performed by: [id number] Meter #: [id number] Ordering Provider: FRANCK TURNER Report Released Date/Time: Sep 09, 2024 12:33 PM Reporting Lab: [address] [address] Performing Lab: [address] [address] GLUCOSE-HAND MONITOR 116 mg/dL H 71-99 Sep 09, 2024 06:07 AM [facility] GLUCOSE-HAND MONITOR CAPILLARY Specime n Type: CAPILLARY Comment: Test performed by: [id number] Meter #: [id number] Ordering Provider: FRANCK TURNER Report Released Date/Time: Sep 09, 2024 08:17 AM Reporting Lab: [address] [address] Performing Lab: [address] [address] GLUCOSE-HAND MONITOR 112 mg/dL H 71-99 Sep 08, 2024 09:13 PM [facility] GLUCOSE-HAND MONITOR CAPILLARY Specime n Type: CAPILLARY Comment: Test performed by: [id number] Meter #: [id number] Ordering Provider: FRANCK TURNER Report Released Date/Time: Sep 08, 2024 09:31 PM Reporting Lab: [address] [address] Performing Lab: [address] [address] GLUCOSE-HAND MONITOR 107 mg/dL H 71-99 Sep 08, 2024 03:49 PM [facility] GLUCOSE-HAND MONITOR CAPILLARY Specime n Type: CAPILLARY Comment: AAMIR RN notified Test performed by: [id number] Meter #: [id number] Ordering Provider: FRANCK TURNER Report Released Date/Time: Sep 08, 2024 04:33 PM Reporting Lab: [address] [address] Performing Lab: [address] [address] GLUCOSE-HAND MONITOR 162 mg/dL H Sep 08, 2024 11:43 AM [facility] GLUCOSE-HAND MONITOR CAPILLARY Specime n Type: CAPILLARY Comment: AAMIR RN notified Test performed by: [id number] Meter #: [id number] Ordering Provider: FRANCK TURNER Report Released Date/Time: Sep 08, 2024 12:03 PM Reporting Lab: [address] [address] Performing Lab: [address] [address] GLUCOSE-HAND MONITOR 133 mg/dL H Sep 08, 2024 06:13 AM [facility] GLUCOSE-HAND MONITOR CAPILLARY Specime n Type: CAPILLARY Comment: Test performed by: [id number] Meter #: [id number] Ordering Provider: FRANCK TURNER Report Released Date/Time: Sep 08, 2024 06:46 AM Reporting Lab: [address] [address] Performing Lab: [address] [address] GLUCOSE-HAND MONITOR 104 mg/dL H Sep 07, 2024 07:59 PM [facility] GLUCOSE-HAND MONITOR CAPILLARY Specime n Type: CAPILLARY Comment: Test performed by: [id number] Meter #: [id number] Ordering Provider: FRANCK TURNER Report Released Date/Time: Sep 07, 2024 09:05 PM Reporting Lab: [address] [address] Performing Lab: [address] [address] GLUCOSE-HAND MONITOR 107 mg/dL H Sep 07, 2024 04:39 PM [facility] GLUCOSE-HAND MONITOR CAPILLARY Specime n Type: CAPILLARY Comment: Test performed by: [id number] Meter #: [id number] Ordering Provider: FRANCK TURNER Report Released Date/Time: Sep 07, 2024 05:09 PM Reporting Lab: [address] [address] Performing Lab: [address] [address] GLUCOSE-HAND MONITOR 105 mg/dL H -99 Sep 07, 2024 11:41 AM [facility] GLUCOSE-HAND MONITOR CAPILLARY Specime n Type: CAPILLARY Comment: Test performed by: [id number] Meter #: [id number] Ordering Provider: FRANCK TURNER Report Released Date/Time: Sep 07, 2024 12:41 PM Reporting Lab: [address] [address] Performing Lab: [address] [address] GLUCOSE-HAND MONITOR 144 mg/dL H -Sep 07, 2024 05:56 AM [facility] GLUCOSE-HAND MONITOR CAPILLARY Specime n Type: CAPILLARY Comment: Test performed by: [id number] Meter #: [id number] Ordering Provider: FRANCK TURNER Report Released Date/Time: Sep 07, 2024 06:31 AM Reporting Lab: [address] [address] Performing Lab: [address] [address] GLUCOSE-HAND MONITOR 96 mg/dL -Sep 06, 2024 08:10 PM [facility] GLUCOSE-HAND MONITOR CAPILLARY Specime n Type: CAPILLARY Comment: Test performed by: [id number] Meter #: [id number] Ordering Provider: FRANCK TURNER Report Released Date/Time: Sep 06, 2024 08:52 PM Reporting Lab: [address] [address] Performing Lab: [address] [address] GLUCOSE-HAND MONITOR 124 mg/dL H -Sep 06, 2024 04:27 PM [facility] GLUCOSE-HAND MONITOR CAPILLARY Specime n Type: CAPILLARY Comment: Test performed by: [id number] Meter #: [id number] Ordering Provider: FRANCK TURNER Report Released Date/Time: Sep 06, 2024 05:15 PM Reporting Lab: [address] [address] Performing Lab: [address] [address] GLUCOSE-HAND MONITOR 107 mg/dL H Sep 06, 2024 12:12 PM [facility] GLUCOSE-HAND MONITOR CAPILLARY Specime n Type: CAPILLARY Comment: Test performed by: [id number] Meter #: [id number] Ordering Provider: FRANCK TURNER Report Released Date/Time: Sep 06, 2024 12:29 PM Reporting Lab: [address] [address] Performing Lab: [address] [address] GLUCOSE-HAND MONITOR 181 mg/dL H Sep 06, 2024 06:13 AM [facility] GLUCOSE-HAND MONITOR CAPILLARY Specime n Type: CAPILLARY Comment: Test performed by: [id number] Meter #: [id number] Ordering Provider: FRANCK TURNER Report Released Date/Time: Sep 06, 2024 06:36 AM Reporting Lab: [address] [address] Performing Lab: [address] [address] GLUCOSE-HAND MONITOR 102 mg/dL H Sep 05, 2024 08:47 PM [facility] GLUCOSE-HAND MONITOR CAPILLARY Specime n Type: CAPILLARY Comment: Test performed by: [id number] Meter #: [id number] Ordering Provider: FRANCK TURNER Report Released Date/Time: Sep 06, 2024 02:13 AM Reporting Lab: [address] [address] Performing Lab: [address] [address] GLUCOSE-HAND MONITOR 103 mg/dL H Sep 05, 2024 04:40 PM [facility] GLUCOSE-HAND MONITOR CAPILLARY Specime n Type: CAPILLARY Comment: AAMIR RN notified Test performed by: [id number] Meter #: [id number] Ordering Provider: FRANCK TURNER Report Released Date/Time: Sep 05, 2024 05:11 PM Reporting Lab: [address] [address] Performing Lab: [address] [address] GLUCOSE-HAND MONITOR 113 mg/dL H Sep 05, 2024 12:06 PM [facility] GLUCOSE-HAND MONITOR CAPILLARY Specime n Type: CAPILLARY Comment: Test performed by: [id number] Meter #: [id number] Ordering Provider: FRANCK TURNER Report Released Date/Time: Sep 05, 2024 12:23 PM Reporting Lab: [address] [address] Performing Lab: [address] [address] GLUCOSE-HAND MONITOR 115 mg/dL H Sep 05, 2024 06:26 AM [facility] GLUCOSE-HAND MONITOR CAPILLARY Specime n Type: CAPILLARY Comment: AAMIR Correction Dose Test performed by: [id number] Meter #: [id number] Ordering Provider: FRANCK TURNER Report Released Date/Time: Sep 05, 2024 06:43 AM Reporting Lab: [address] [address] Performing Lab: [address] [address] GLUCOSE-HAND MONITOR 111 mg/dL H Sep 04, 2024 08:59 PM [facility] GLUCOSE-HAND MONITOR CAPILLARY Specime n Type: CAPILLARY Comment: AAMIR RN notified Test performed by: [id number] Meter #: [id number] Ordering Provider: FRANCK TURNER Report Released Date/Time: Sep 04, 2024 09:36 PM Reporting Lab: [address] [address] Performing Lab: [address] [address] GLUCOSE-HAND MONITOR 123 mg/dL H Sep 04, 2024 04:41 PM [facility] GLUCOSE-HAND MONITOR CAPILLARY Specime n Type: CAPILLARY Comment: AAMIR RN notified Test performed by: [id number] Meter #: [id number] Ordering Provider: FRANCK TURNER Report Released Date/Time: Sep 04, 2024 05:03 PM Reporting Lab: [place] [phone] Performing Lab: [place] [address] GLUCOSE-HAND MONITOR 118 mg/dL H Sep 04, 2024 12:36 PM [facility] GLUCOSE-HAND MONITOR CAPILLARY Specime n Type: CAPILLARY Comment: AAMIR RN notified Test performed by: [id number] Meter #: [id number] Ordering Provider: FRANCK TURNER Report Released Date/Time: Sep 04, 2024 12:53 PM Reporting Lab: [place] [address] Performing Lab: [place] [address] GLUCOSE-HAND MONITOR 129 mg/dL H Sep 04, 2024 12:03 PM [facility] RESPIRATORY VIRUS PANEL (BIOFIRE) NASOPHARYN X Specimen Type: NASOPHARYNX Comment: ~For Test: RESPIRATORY VIRUS PANEL (BIOFIRE) ~ORDER READ BACK TO: FRANCK TURNER 09/04/24@11:30 Ordering Provider: FRANCK TURNER Report Released Date/Time: Sep 04, 2024 11:33 AM Reporting Lab: [place] [phone] Performing Lab: [place] [phone] ADENOVIRUS (BIOFIRE) Not Detected -Not D etected [...] Detected Sep 04, 2024 06:55 AM [facility] MAGNESIUM PLASMA Specimen Type: PLASM [...] Sep 03, 2024 11:10 AM Reporting Lab: [facility] [address] [facility] [address] Performing Lab: [address] [address] MAGNESIUM 1.8 mg/dL 1.6-2.6 Sep 04, 2024 06:55 AM [facility] PANEL 1 PLASMA Specimen Type: [...] Sep 03, 2024 11:10 AM Reporting Lab: [address] [address] Performing Lab: [place] [phone] CREATININE 0.75 mg/dL 0.72-1.25 UREA NITROGEN 13 mg/dL 9-25 GLUCOSE 105 mg/dL H 74-100 SODIUM 128 mmol/L L 136-145 POTASSIUM 3.9 mmol/L 3.5-5.1 CHLORIDE 99 mmol/L 98-107 CO2 21 mmol/L L 22-29 CALCIUM 8.0 mg/dL L 8.4-10.2 ANION GAP 8 meq/L 3-19 eGFR (CKD-EPI) >90 Sep 04, 2024 06:02 AM [facility] GLUCOSE-HAND MONITOR CAPILLARY Specime n Type: CAPILLARY Comment: Test performed by: [id number] Meter #: [id number] Ordering Provider: FRANCK TURNER Report Released Date/Time: Sep 04, 2024 06:28 AM Reporting Lab: [address] [address] Performing Lab: [address] [address] GLUCOSE-HAND MONITOR 114 mg/dL H 71-99 Sep 03, 2024 05:19 PM [facility] GLUCOSE-HAND MONITOR CAPILLARY Specime n Type: CAPILLARY Comment: Test performed by: [id number] Meter #: [id number] Ordering Provider: FRNACK TURNER Report Released Date/Time: Sep 03, 2024 05:37 PM Reporting Lab: [address] [address] Performing Lab: [address] [address] GLUCOSE-HAND MONITOR 124 mg/dL H 71-99 Sep 03, 2024 04:41 PM [facility] GLUCOSE-HAND MONITOR CAPILLARY Specime n Type: CAPILLARY Comment: Test performed by: [id number] Meter #: [id number] Ordering Provider: FRANCK TURNER Report Released Date/Time: Sep 03, 2024 06:09 PM Reporting Lab: [address] [address] Performing Lab: [place] [phone] GLUCOSE-HAND MONITOR 112 mg/dL H 71-99 Sep 03, 2024 01:35 PM [facility] URINE LYTES URINE Specimen Type : URINE Comment: ~Altered mental status with no identifiable cause Ordering Provider: FRANCK TURNER Report Released Date/Time: Sep 02, 2024 04:44 PM Reporting Lab: [address] [address] Performing Lab: [address] [address] SODIUM 130 mmol/L POTASSIUM 47.6 mmol/L CHLORIDE 137 mmol/L Sep 03, 2024 01:35 PM [facility] CREATININE URINE Specimen Type: URINE Comment: ~Altered mental status with no identifiable cause Ordering Provider: FRANCK TURNRE Report Released Date/Time: Sep 02, 2024 04:44 PM Reporting Lab: [address] [address] Performing Lab: [address] [address] CREATININE 150.9 mg/dL Sep 03, 2024 01:35 PM [facility] UREA NITROGEN URINE Specimen Type : URINE Comment: ~Altered mental status with no identifiable cause Ordering Provider: FRANCK TURNER Report Released Date/Time: Sep 02, 2024 04:44 PM Reporting Lab: [address] [address] Performing Lab: [address] [address] UREA NITROGEN 320 mg/dL Sep 03, 2024 01:35 PM [facility] URINALYSIS WITH REFLEX TO CULTURE URINE Specimen Type: URINE Comment: ~Altered mental status with no identifiable cause Ordering Provider: FRANCK TURNER Report Released Date/Time: Sep 02, 2024 04:44 PM Reporting Lab: [address] [address] Performing Lab: [address] URINE COLOR Yellow Colorless-Yellow APPEARANCE CLOUDY H [...] H 0-28 Sep 03, 2024 01:35 PM [facility] OSMOLALITY URINE Specimen Type: URINE Comment: ~Altered mental status with no identifiable cause Ordering Provider: FRANCK TURNER Report Released Date/Time: Sep 02, 2024 04:44 PM Reporting Lab: [address] Performing Lab: [address] [address] OSMOLALITY 522 mosm/kg 38-1400 Sep 03, 2024 11:58 AM [facility] GLUCOSE-HAND MONITOR CAPILLARY Specime n Type: CAPILLARY Comment: AAMIR RN notified Test performed by: [id number] Meter #: [id number] Ordering Provider: FRANCK TURNER Report Released Date/Time: Sep 03, 2024 12:15 PM Reporting Lab: [address] [address] Performing Lab: [address] [address] GLUCOSE-HAND MONITOR 135 mg/dL H 71-99 Sep 03, 2024 07:09 AM [facility] GLUCOSE-HAND MONITOR CAPILLARY Specime n Type: CAPILLARY Comment: Test performed by: [id number] Meter #: [id number] Ordering Provider: FRANCK TURNER Report Released Date/Time: Sep 03, 2024 07:26 AM Reporting Lab: [address] [address] Performing Lab: [address] [address] GLUCOSE-HAND MONITOR 120 mg/dL H 71-99 Sep 03, 2024 07:05 AM [facility] CBC/PLT BLOOD Specimen Type: BLOOD No comment entered. Ordering Provider: FRANCK TURNER Report Released Date/Time: Sep 02, 2024 04:29 PM Reporting Lab: [address] [address] Performing Lab: [address] [address] WBC 6.9 10*3/uL 5.0-10.0 RBC 3.48 10*6/uL L 4.6-6.2 HGB 9.5 g/dL L 14.0-18.0 HCT 29.1 L 42.0-52.0 MCV 83.6 fL 80.0-94.0 MCH 27.3 pg 27.0-31.0 MCHC 32.6 g/dL 32.0-36.0 PLT 258 10*3/uL 150-450 MPV 10.3 fL 9.0-13.1 RDW 14.8 11.0-16.0 NRBC 0.0 0.0-0.0 Sep 03, 2024 07:05 AM [facility] MAGNESIUM PLASMA Specimen Type: PLASM [...] 02, 2024 04:29 PM Reporting Lab: [address] [address] Performing Lab: [address] [address] MAGNESIUM 1.7 mg/dL 1.6-2.6 Sep 03, 2024 07:05 AM [facility] PANEL 1 PLASMA Specimen Type: [...] 02, 2024 04:29 PM Reporting Lab: [address] [address] Performing Lab: [address] [address] CREATININE 0.82 mg/dL 0.72-1.25 UREA NITROGEN 12 mg/dL 9-25 GLUCOSE 109 mg/dL H 74-100 SODIUM 129 mmol/L L 136-145 POTASSIUM 4.2 mmol/L 3.5-5.1 CHLORIDE 99 mmol/L 98-107 CO2 21 mmol/L L 22-29 CALCIUM 8.1 mg/dL L 8.4-10.2 ANION GAP 9 meq/L 3-19 eGFR (CKD-EPI) 90 Sep 03, 2024 07:05 AM [facility] GLYCOHEMOGLOBIN BLOOD Specimen Type: BLOOD Comment: Prediabetes: 5.7%-6.4% Diabetes: >= 6.5% [facility] guidelines for A1c interpretation: Glycemic [...] 8.73 and 9.27. Ref: https://ngsp.org/CAPdata.asp. The in-house Scout-Unbxd D-100 analyzer has a historical CV <= 2%. Contact the laboratory for further performance characteristics of this assay. Ordering Provider: FRANCK TURNER Report Released Date/Time: Sep 02, 2024 04:29 PM Reporting Lab: [place] [phone] Performing Lab: [place] [phone] GLYCOHEMOGLOBIN 5.6 4.4-5.6 Sep 03, 2024 07:05 AM [facility] OSMOLALITY SERUM Specimen Type: SERUM No comment entered. Ordering Provider: FRANCK TURNER Report Released Date/Time: Sep 02, 2024 04:44 PM Reporting Lab: [address] [address] Performing Lab: [place] [phone] OSMOLALITY 271 mosm/kg L 280-300 Sep 02, 2024 08:15 PM [facility] GLUCOSE-HAND MONITOR CAPILLARY Specime n Type: CAPILLARY Comment: AAMIR DEXTER notified Test performed by: [id number] Meter #: [id number] Ordering Provider: FRANCK TURNER Report Released Date/Time: Sep 02, 2024 08:57 PM Reporting Lab: [address] [address] Performing Lab: [place] [phone] GLUCOSE-HAND MONITOR 126 mg/dL H 71-99 Sep 02, 2024 06:10 PM [facility] MRSA SURVL NARES DNA NARES [...] Sep 02, 2024 05:12 PM Reporting Lab: [place] [phone] Performing Lab: [place] [phone] MRSA SURVL NARES DNA Negative Negative Sep 02, 2024 05:36 PM [facility] GLUCOSE-HAND MONITOR CAPILLARY Specime n Type: CAPILLARY Comment: Test performed by: [id number] Meter #: [id number] Ordering Provider: FRANCK TURNER Report Released Date/Time: Sep 02, 2024 05:53 PM Reporting Lab: [address] [address] Performing Lab: [place] [phone] GLUCOSE-HAND MONITOR 127 mg/dL H -Aug 29, 2024 10:04 PM [facility] URINALYSIS WITH REFLEX TO CULTURE URINE Specimen Type: URINE Comment: ~For Test: URINALYSIS WITH REFLEX TO CULTURE ~REORDER Ordering Provider: FELISA COLE Report Released Date/Time: Aug 29, 2024 09:36 PM Reporting Lab: [address] [address] Performing Lab: [address] [address] URINE COLOR Yellow Colorless-Yellow APPEARANCE Clear Clear [...] /[LPF] 0-28 Aug 29, 2024 08:32 PM [facility] HIGH SENSITIVITY TROPONIN I [...] 29, 2024 07:55 PM Reporting Lab: [address] [address] Performing Lab: [address] [address] HIGH SENSITIVITY TROPONIN I 7 4-35 Aug 29, 2024 08:32 PM [facility] CBC/PLT BLOOD Specimen Type: BLOOD No comment entered. Ordering Provider: FELISA COLE Report Released Date/Time: Aug 29, 2024 07:55 PM Reporting Lab: [place] [address] [address] Performing Lab: [facility] [address] [facility] [address] WBC 11.2 10*3/uL H 5.0-10.0 RBC 3.97 10*6/uL L 4.6-6.2 HGB 10.9 g/dL L 14.0-18.0 HCT 33.5 L 42.0-52.0 MCV 84.4 fL 80.0-94.0 MCH 27.5 pg 27.0-31.0 MCHC 32.5 g/dL 32.0-36.0 PLT 230 10*3/uL 150-450 MPV 10.2 fL 9.0-13.1 RDW 14.6 11.0-16.0 NRBC 0.0 0.0-0.0 Aug 29, 2024 08:32 PM [facility] PANEL 5 PLASMA Specimen Type: [...] 29, 2024 07:55 PM Reporting Lab: [address] [address] Performing Lab: [address] [address] CREATININE 0.85 mg/dL 0.72-1.25 UREA NITROGEN 15 [...] 18 /min 93 % 0 [place] Sep 06, 2024 04:27 PM 97.5 F 67 /min 148/67 mm[Hg] 20 /min 93 % 0 [place] [facility] Sep 06, 2024 03:37 PM 0 [place] [facility] Sep 06, 2024 11:30 AM 0 [place] Sep 06, 2024 10:22 AM 97.4 F 71 /min 102/49 mm[Hg] 18 /min 93 % 0 [facility] Advance Directives: All historical and [...] 08, 2024 ADVANCE DIRECTIVE DISCUSSION [facility] Radiology Reports: +/- [...] BRAIN W & W/O: LUIS MANUEL PERDOMO [id number] -1945 M Exm Date: SEP 06, 2024@13:40 Req Phys: JOHNNYFRANCK SYDNEY Pat Loc: 5-MED/TEL/09-06-2024@19:09 Img Loc: [facility] Service: [facility]ICAL SERVICE [place] [id number] (Case [id number] COMPLETE) MRI BRAIN W & W/O (MRI Detailed) CPT:17338 Contrast Media : Gadolinium Reason for Study: SEE CLINICAL HISTORY Pharmaceutical: GADOTERIDOL 279.3MG/ML 20ML INJ, 19ml Clinical History: MRI Screening (Required): IMPLANTED DEVICE DOCUMENTATION IMPLANTED DEVICE DOCUMENTATION NOT FOUND Does the have any Cardiac Implants? None Does the [place] have any implanted stimulators? None Does the have cochlear implants? No Does the have Cerebral aneurysm clip(s)? I don't know Does the have any shrapnel? I don't know If yes, where in your body? Please list other implants not listed above: MRI table has a weight limit of 551 lbs. [place]'s Weight: *212 lb [96.16 kg] (09/04/2024 05:19) Is this patient claustrophobic?: No REASON FOR EXAM:MULTIPLE SCLEROSIS (indicate suspected or established) PERTINENT PATIENT HISTORY: MS c/f for flare Risk factors for GADOLINIUM NEPHROGENIC SYSTEMIC SCLEROSIS: Report Status: Verified Date Reported: SEP 06, 2024 Date Verified: SEP 06, 2024 Sdet E-Sig: Report: MRI brain without and with [...] Staff: ARCENIO LEYVA, Staff Radiologist Verified by cyber security consultant for ARCENIO LEYVA /[facility]IO [facility] Sep 06, 2024 01:40 PM MRI C SPINE W & W/ O CONTRAST(FURTHER SEQUENCES): LUIS MANUEL PERDOMO [id number] -1945 M Exm Date: SEP 06, 2024@13:40 Req Phys: FRANCK TURNER [facility] Loc: 5-MED/TEL/09-07-2024@06:42 Img Loc: [facility] Service: [facility] [place] [id number] (Case [id number] COMPLETE) MRI C SPINE W & W/O CONTRAST(FURT(MRI Detailed) CPT:20166 Contrast Media : Gadolinium Reason for Study: SEE CLINICAL HISTORY Pharmaceutical: GADOTERIDOL 279.3MG/ML 20ML INJ, 19ml Clinical History: STATUS OF PLAIN FILMS:Not performed (Provide justification for MR W/O prior plain films below.) MRI for MS MRI Screening (Required): IMPLANTED DEVICE DOCUMENTATION IMPLANTED DEVICE DOCUMENTATION NOT FOUND Does the [place] have any Cardiac Implants? None Does the [place] have any implanted stimulators? None Does the have cochlear implants? No Does the have Cerebral aneurysm clip(s)? I don't know Does the [place] have any shrapnel? I don't know If [...] 07, 2024 Date Verified: SEP 07, 2024 Sdet E-Sig: Report: EXAMINATION: MRI OF THE CERVICAL [...] Interpreting Staff: HUANG TAI, Radiologist Verified by cyber security consultant for HUANG TAI /HUANG [facility] Sep 03, 2024 10:45 AM CHEST SINGLE(1) EW: LUIS MANUEL PERDOMO [id number] -1945 M Ex Date: SEP 03, 2024@10:45 Req Phys: FRANCK TURNER HUANGFRANNY Faith Loc: 5-MED/TEL/09-03-2024@10:56 Img Loc: [facility] RADIOLOGY Service: [place] [address] (Case [id number] COMPLETE)CHEST SINGLE(1) VIEW (RAD Detailed) CPT:67659 Proc Modifiers : PORTABLE EXAM Reason for Study: Eval volume status Clinical History: Report Status: Verified Date Reported: SEP 03, 2024 Date Verified: SEP 03, 2024 Sdet E-Sig: Report: EXAMINATION: SINGLE VIEW CHEST CLINICAL [...] Interpreting Staff: HUANG TAI, Radiologist Verified by cyber security consultant for HUANG TAI /HUANG WHEAT[facility] Aug 29, 2024 08:[address] HEAD W/O CONT: LUIS MANUEL PERDOMO FABIAN [id number] -[id number] M Exm Date: AUG 29, 2024@20:28 Req Phys: FELISA COLE Loc: ED/4P-12A (Req'g Loc) Img Loc: CT SCAN Service: [place] [address] (Case [id number] COMPLETE) CT HEAD W/O CONT (CT Detailed) CPT:59908 Reason for Study: SEE CLINICAL HISTORY Clinical History: REASON FOR SEND OUT: ATTENDING PHYSICIAN NAME: New transient neurological s/s - suspected TIA HISTORY/REASON FOR EXAM: confusion Report Status: Verified Date Reported: AUG 29, 2024 Date Verified: AUG 29, 2024 Sdet E-Sig: Report: HISTORY confusion COMPARISON No prior [...] Staff: ABDIRAHMAN CROW, Staff Physician Verified by cyber security consultant for ABDIRAHMAN CROW /[facility]DIRAHMAN [facility] [...] PORT: Reporting Lab: [facility] [CLIA# [id number]] [address] [place] [id number] Accession [UID]: [id number] [[id number]] Received: Sep 03, 2024@14:02 Collection sample: URINE, [...] Report Performed By: [facility] [CLIA# [id number]] [address] [place], [place] [id number] MAGDY CALABRESE [facility] Sep 02, 2024 06:00 PM LR MICROBIOLOGY RE PORT: Reporting Lab: [facility] [IA# [id number]] [address] [place] [id number] Accession [UID]: [id number] [[id number]] Received: Sep 02, 2024@18:07 Collection sample: BLD CULTURE BOTTLES Collection date: Sep 02, 2024 18:00 Site/Specimen: BLOOD Provider: FRANCK TURNER Comment on specimen: L HAND Test(s) ordered: CULTURE, BLOOD................ completed: Sep 08, 2024 * BACTERIOLOGY FINAL REPORT => Sep 08, 2024 08:25 [facility] CODE: [id number] Bacteriology Remark(s): Blood culture status=NO GROWTH (unless notified otherwise) 09/03/2024 AEROBIC: NO GROWTH ANAEROBIC: NO GROWTH =--=--=--=--=--=--=--=--=--=-- =--=--=--=--=--=--=--=--=--=-- =--=--=--=--=--=-- Performing Laboratory: Bacteriology Report Performed By: [facility] [CLIA# [id number]] [address] [place] [id number] MAGDY CALABRESE [facility] Aug 29, 2024 10:18 PM LR MICROBIOLOGY RE PORT: Reporting Lab: [facility] [IA# [id number]] [address] [place], [place] [id number] Accession [UID]: [id number] [[id number]] Received: Aug 29, 2024@22:18 Collection sample: URINE, CLEAN CATCH Collection date: Aug 29, 2024 22:18 Site/Specimen: URINE Provider: FELISA COLE Test(s) ordered: CULTURE, URINE................ completed: Aug 31, 2024 09:51 * BACTERIOLOGY FINAL REPORT => Aug 31, 2024 09:51 TECH CODE: [id number] Bacteriology Remark(s): NO GROWTH 08/30/2024 <10,000 CFU/ML. 08/31/2024 =--=--=--=--=--=--=--=--=--=-- =--=--=--=--=--=--=--=--=--=-- =--=--=--=--=--=-- Performing Laboratory: Bacteriology Report Performed By: [facility] [CLIA# [id number]] [address] [place] [address] MAGDY CALABRESE [facility] Encounter Notes: All associated encounter notes This section contains the clinical notes associated to the Encounter. Date/Time Encounter Note(s) Provider Source Sep 06, 2024 09:40 AM PHYSICAL THERAPY C ONSULT: LOCAL TITLE: PT INPATIENT CONSULT RESPONSE STANDARD TITLE: PHYSICAL THERAPY CONSULT DATE OF NOTE: SEP 06, 2024@09:40 ENTRY DATE: SEP 06, 2024@11:41:47 AUTHOR: YI COWART EXP COSIGNER: URGENCY: STATUS: COMPLETED Medical Diagnosis: Suspected HF Reason for Consult: PT eval/recs Precautions: No precautions Referring team: [place] SUBJECTIVE: Per at beside, pt was ambulating short distances to the bathroom with a RW. Reports he otherwise remains in the lift chair but hasn't been able to walk in several days. Patient seen: Patient seen: 6M, RN ok'd treatment, Pt agreeable Pt without complaints. Lives: With spouse Description of home: 2 story, Lives on main floor of multilevel home Home Entry: Ramp PLOF: Ambulatory, With assistive device, Reports falls at home Equipment Owned: Straight cane, RW, Manual w/c, Rollator, Lift chair OBJECTIVE: OBSERVATION: Overlap with OT Patient Position: Supine in bed Orientation: Oriented to: Person, Place Follows commands: 100% Lines: Pure wick Other: Bed/chair alarm VITALS: BP: O2 Sat: 89-90% on RA HR: PAIN: Location: None reported Ratin/10 RANGE OF MOTION: Upper Extremities: See OT note Lower Extremities: RLE WFL; LLE AROM due to weakness, PROM WFL STRENGTH/TONE: Upper Extremities: See OT note Lower Extremities: WFL RLE grossly 3+/5; LLE grossly 3/5 BED MOBILITY: Supine to sit: CGA, x1 Sit to supine: TRANSFERS: Sit to/from Stand: Mod assist , x1 Bed to chair: Min assist , Mod assist , x1 BALANCE: Sitting - Static: Good Sitting - Dynamic: Fair Standing - Static: Fair Standing - Dynamic: Fair - GAIT: Not tested: Bed to chair transfer only this date Distance: feet Assistance Level: Assistive device: Gait description: THERAPEUTIC ACTIVITY: Patient transferred from supine to EOB with CGA x1 and verbal cueing. Pt sat EOB for 5 minutes with CGA. Pt transferred to standing with modA x1 and PT assisted pt in donning shorts. Pt stepped over to bedside chair with min-modA x1 and transferred to seated with Roro x1 and cueing for hand placement. Pt had increased knee flexion during transfer and reported feeling his R knee was starting to give out. Pt completed an additional sit to stand transfer with gait belt and Roro x2 with OT present. Pt transferred back to seated in bedside chair. A few minutes after transfers, OT alerted nurse that pt had decreased alertness and pt reported feeling as if he was going to pass out. BP had decreased to the 80's upon RN checking vitals, but after a few minutes and reclining in the chair BP improved to 102/49 and pt more alert. EDUCATION: - Appropriate for JOIE - Family wants rehab close to home - OOBTC often due to being bedridden for several days Pt left at end of session: Seated in bedside chair, Bed/chair alarm pad - RN aware, Call light in reach, RN present, On lift sling, Instructed to call for assist with mobility PATIENT EDUCATION/SELF CARE: Purpose of PT, Benefits of activity BARRIERS: None PATIENT TREATMENT TIME: 40 minutes PROCEDURES: Initial Evaluation 15 minutes Self Management Training/Education 25 minutes ASSESSMENT: Patient participated well and presented with strength and mobility deficits. Pt would benefit from continued skilled PT during admission and JOIE upon d/c to improve his deficits. PT Prognosis: Fair GOALS: LT-14 days// 1. Pt will perform transfers: with CGA x1 2. Pt will ambulate: 10 ft with AD and CGA x1 PT PLAN: 3-5x/week, Gait training, Bed mobility, Therapeutic exercise, Education, Equipment issuance DISCHARGE PLAN/DISPOSITION: Subacute Rehab /es/ YI COWART Physical Therapist Signed: 09/06/2024 12:08 YI COWART-[facility]
--- OUTSIDE RECORDS SUMMARY | 2024-09-06 06:05 | XMS_ITS ---
Author Name [facility] of [facility] ([place] Organization [facility] of [facility] [place] Address [address] [place] [id number] Care Team Providers Care Pot Firer Name Role Phone YULISSA HENDERSON Primary Care [...] PLAN F Mar 24, 2014 PLAN F [id number] LUIS MANUEL PERDOMO PATIENT [facility] [place] BLUECARD PREFERRED PROVIDER ORGANIZAT ION (PPO) [facility] Sep 21, 2012 [id number] LUIS MANUEL PERDOMO PATIENT [employer] ([id number]) PRESCRIPT ION WL3A Sep 21, 2012 [id number] LUIS MANUEL PERDOMO PATIENT MEDICARE (WNR) MEDICARE (M) PART B Sep 21, 2012 PART B [id number] NOEMI PERDOMO PATIENT MEDICARE (WNR) MEDICARE (M) PART A Jan 22, 2011 PART A [id number] NOEMI PERDOMO PATIENT MEDICARE PART D (WNR) MEDICARE (M) PART D Mar 24, 2014 PART D [id number] LUIS MANUEL PERDOMO PATIENT Selected Encounter This section includes the information on record at [place] for the Encounter. Date/Time Encounter Type Encounter Description Reason Provider Source Sep 06, 2024 10:05 AM SELF CARE MNGMENT TRAINING OCCUPATIONAL THERAPY ICD-10-CM M62.81 Muscle weakness (generalized) RASH,MARISSA IHE Encounter Template Text not used by [facility] Assessments - Encounter Diagnoses This section includes the primary and secondary diagnoses documented for the Encounter. Date/Time Primary/Secondary Diagnosis Diagnosis Name Provider Source Sep 06, 2024 02:40 PM PRIMARY Muscle weakness (generalized) RASH,MARISSA [facility] Plan of Treatment: Future Appointments (+ [...] AM AMBULATORY - NONE [place] [facility] Sep 30, 2024 01:30 PM AMBULATORY - SURGERY [place] [facility] Active, Pending, and Scheduled Orders This [...] Sep 13, 2024 01:33 PM Consult Order [facility] Cons Bridge Manager's Choice [facility] Lab Results: +/- 30 days [...] Sep 09, 2024 12:16 PM [facility] GLUCOSE-HAND MONITOR CAPILLARY Specimen Type: CAPILLARY Comment: Test performed by: [id number] Meter #: [id number] Ordering Provider: FRANCK TURENR Report Released Date/Time: Sep 09, 2024 12:33 PM Reporting Lab: [address] [address] Performing Lab: [address] [address] GLUCOSE-HAND MONITOR 116 mg/dL H 71-99 Sep 09, 2024 06:07 AM [facility] GLUCOSE-HAND MONITOR CAPILLARY Specime n Type: CAPILLARY Comment: Test performed by: [id number] Meter #: [id number] Ordering Provider: FRANCK TURNER Report Released Date/Time: Sep 09, 2024 08:17 AM Reporting Lab: [address] [address] Performing Lab: [address] [address] GLUCOSE-HAND MONITOR 112 mg/dL H 71-99 Sep 08, 2024 09:13 PM [facility] GLUCOSE-HAND MONITOR CAPILLARY Specime n Type: CAPILLARY Comment: Test performed by: [id number] Meter #: [id number] Ordering Provider: FRANCK TURNER Report Released Date/Time: Sep 08, 2024 09:31 PM Reporting Lab: [address] [address] Performing Lab: [address] [address] GLUCOSE-HAND MONITOR 107 mg/dL H 71-99 Sep 08, 2024 03:49 PM [facility] GLUCOSE-HAND MONITOR CAPILLARY Specime n Type: CAPILLARY Comment: AAMIR RN notified Test performed by: [id number] Meter #: [id number] Ordering Provider: FRANCK TURNER Report Released Date/Time: Sep 08, 2024 04:33 PM Reporting Lab: [address] [address] Performing Lab: [place] [id number] GLUCOSE-HAND MONITOR 162 mg/dL H Sep 08, 2024 11:43 AM [facility] GLUCOSE-HAND MONITOR CAPILLARY Specime n Type: CAPILLARY Comment: AAMIR RN notified Test performed by: [id number] Meter #: [id number] Ordering Provider: FRANCK TURNER Report Released Date/Time: Sep 08, 2024 12:03 PM Reporting Lab: [address] [address] Performing Lab: [address] [address] GLUCOSE-HAND MONITOR 133 mg/dL H Sep 08, 2024 06:13 AM [facility] GLUCOSE-HAND MONITOR CAPILLARY Specime n Type: CAPILLARY Comment: Test performed by: [id number] Meter #: [id number] Ordering Provider: FRANCK TURNER Report Released Date/Time: Sep 08, 2024 06:46 AM Reporting Lab: [address] [address] Performing Lab: [address] [address] GLUCOSE-HAND MONITOR 104 mg/dL H Sep 07, 2024 07:59 PM [facility] GLUCOSE-HAND MONITOR CAPILLARY Specime n Type: CAPILLARY Comment: Test performed by: [id number] Meter #: [id number] Ordering Provider: FRANCK TURNER Report Released Date/Time: Sep 07, 2024 09:05 PM Reporting Lab: [address] [address] Performing Lab: [address] [address] GLUCOSE-HAND MONITOR 107 mg/dL H Sep 07, 2024 04:39 PM [facility] GLUCOSE-HAND MONITOR CAPILLARY Specime n Type: CAPILLARY Comment: Test performed by: [id number] Meter #: [id number] Ordering Provider: FRANCK TURNER Report Released Date/Time: Sep 07, 2024 05:09 PM Reporting Lab: [address] [address] Performing Lab: [address] [address] GLUCOSE-HAND MONITOR 105 mg/dL H -Sep 07, 2024 11:41 AM [facility] GLUCOSE-HAND MONITOR CAPILLARY Specime n Type: CAPILLARY Comment: Test performed by: [id number] Meter #: [id number] Ordering Provider: FRANCK TURNER Report Released Date/Time: Sep 07, 2024 12:41 PM Reporting Lab: [address] [address] Performing Lab: [address] [address] GLUCOSE-HAND MONITOR 144 mg/dL H -Sep 07, 2024 05:56 AM [facility] GLUCOSE-HAND MONITOR CAPILLARY Specime n Type: CAPILLARY Comment: Test performed by: [id number] Meter #: [id number] Ordering Provider: FRANCK TURNER Report Released Date/Time: Sep 07, 2024 06:31 AM Reporting Lab: [address] [address] Performing Lab: [address] [address] GLUCOSE-HAND MONITOR 96 mg/dL -Sep 06, 2024 08:10 PM [facility] GLUCOSE-HAND MONITOR CAPILLARY Specime n Type: CAPILLARY Comment: Test performed by: [id number] Meter #: [id number] Ordering Provider: FRANCK TURNER Report Released Date/Time: Sep 06, 2024 08:52 PM Reporting Lab: [address] [address] Performing Lab: [address] [address] GLUCOSE-HAND MONITOR 124 mg/dL H -Sep 06, 2024 04:27 PM [facility] GLUCOSE-HAND MONITOR CAPILLARY Specime n Type: CAPILLARY Comment: Test performed by: [id number] Meter #: [id number] Ordering Provider: FRANCK TURNER Report Released Date/Time: Sep 06, 2024 05:15 PM Reporting Lab: [address] [address] Performing Lab: [address] [address] GLUCOSE-HAND MONITOR 107 mg/dL H Sep 06, 2024 12:12 PM [facility] GLUCOSE-HAND MONITOR CAPILLARY Specime n Type: CAPILLARY Comment: Test performed by: [id number] Meter #: [id number] Ordering Provider: FRANCK TURNER Report Released Date/Time: Sep 06, 2024 12:29 PM Reporting Lab: [address] [address] Performing Lab: [place] [phone] GLUCOSE-HAND MONITOR 181 mg/dL H Sep 06, 2024 06:13 AM [facility] GLUCOSE-HAND MONITOR CAPILLARY Specime n Type: CAPILLARY Comment: Test performed by: [id number] Meter #: [id number] Ordering Provider: FRANCK TURNER Report Released Date/Time: Sep 06, 2024 06:36 AM Reporting Lab: [address] [address] Performing Lab: [address] [address] GLUCOSE-HAND MONITOR 102 mg/dL H Sep 05, 2024 08:47 PM [facility] GLUCOSE-HAND MONITOR CAPILLARY Specime n Type: CAPILLARY Comment: Test performed by: [id number] Meter #: [id number] Ordering Provider: FRANCK TURNER Report Released Date/Time: Sep 06, 2024 02:13 AM Reporting Lab: [address] [address] Performing Lab: [address] [address] GLUCOSE-HAND MONITOR 103 mg/dL H Sep 05, 2024 04:40 PM [facility] GLUCOSE-HAND MONITOR CAPILLARY Specime n Type: CAPILLARY Comment: AAMIR RN notified Test performed by: [id number] Meter #: [id number] Ordering Provider: FRANCK TURNER Report Released Date/Time: Sep 05, 2024 05:11 PM Reporting Lab: [address] [address] Performing Lab: [address] [address] GLUCOSE-HAND MONITOR 113 mg/dL H -Sep 05, 2024 12:06 PM [facility] GLUCOSE-HAND MONITOR CAPILLARY Specime n Type: CAPILLARY Comment: Test performed by: [id number] Meter #: [id number] Ordering Provider: FRANCK TURNER Report Released Date/Time: Sep 05, 2024 12:23 PM Reporting Lab: [address] [address] Performing Lab: [address] [address] GLUCOSE-HAND MONITOR 115 mg/dL H -Sep 05, 2024 06:26 AM [facility] GLUCOSE-HAND MONITOR CAPILLARY Specime n Type: CAPILLARY Comment: AAMIR Correction Dose Test performed by: [id number] Meter #: [id number] Ordering Provider: FRANCK TURNER Report Released Date/Time: Sep 05, 2024 06:43 AM Reporting Lab: [address] [address] Performing Lab: [address] [address] GLUCOSE-HAND MONITOR 111 mg/dL H -Sep 04, 2024 08:59 PM [facility] GLUCOSE-HAND MONITOR CAPILLARY Specime n Type: CAPILLARY Comment: AAMIR RN notified Test performed by: [id number] Meter #: [id number] Ordering Provider: FRANCK TURNER Report Released Date/Time: Sep 04, 2024 09:36 PM Reporting Lab: [address] [address] Performing Lab: [address] [address] GLUCOSE-HAND MONITOR 123 mg/dL H -Sep 04, 2024 04:41 PM [facility] GLUCOSE-HAND MONITOR CAPILLARY Specime n Type: CAPILLARY Comment: AAMIR RN notified Test performed by: [id number] Meter #: [id number] Ordering Provider: FRANCK TURNER Report Released Date/Time: Sep 04, 2024 05:03 PM Reporting Lab: [place] [phone] Performing Lab: [place] [phone] GLUCOSE-HAND MONITOR 118 mg/dL H Sep 04, 2024 12:36 PM [facility] GLUCOSE-HAND MONITOR CAPILLARY Specime n Type: CAPILLARY Comment: AAMIR RN notified Test performed by: [id number] Meter #: [id number] Ordering Provider: FRANCK TURNER Report Released Date/Time: Sep 04, 2024 12:53 PM Reporting Lab: [place] [phone] Performing Lab: [place] [phone] GLUCOSE-HAND MONITOR 129 mg/dL H Sep 04, 2024 12:03 PM [facility] RESPIRATORY VIRUS PANEL (BIOFIRE) NASOPHARYN X Specimen Type: NASOPHARYNX Comment: ~For Test: RESPIRATORY VIRUS PANEL (BIOFIRE) ~ORDER READ BACK TO: FRANCK TURNER 09/04/24@11:30 Ordering Provider: FRANCK TURNER Report Released Date/Time: Sep 04, 2024 11:33 AM Reporting Lab: [place] [address] Performing Lab: [place] [phone] ADENOVIRUS (BIOFIRE) Not Detected -Not D etected [...] Detected Sep 04, 2024 06:55 AM [facility] MAGNESIUM PLASMA Specimen Type: PLASM A [...] 03, 2024 11:10 AM Reporting Lab: [address] [address] Performing Lab: [address] [address] MAGNESIUM 1.8 mg/dL 1.6-2.6 Sep 04, 2024 06:55 AM [facility] PANEL 1 PLASMA Specimen Type: PLASM [...] 03, 2024 11:10 AM Reporting Lab: [address] [address] Performing Lab: [place] [phone] CREATININE 0.75 mg/dL 0.72-1.25 UREA NITROGEN 13 mg/dL 9-25 GLUCOSE 105 mg/dL H 74-100 SODIUM 128 mmol/L L 136-145 POTASSIUM 3.9 mmol/L 3.5-5.1 CHLORIDE 99 mmol/L 98-107 CO2 21 mmol/L L 22-29 CALCIUM 8.0 mg/dL L 8.4-10.2 ANION GAP 8 meq/L 3-19 eGFR (CKD-EPI) >90 Sep 04, 2024 06:02 AM [facility] GLUCOSE-HAND MONITOR CAPILLARY Specime n Type: CAPILLARY Comment: Test performed by: [id number] Meter #: [id number] Ordering Provider: FRANCK TURNER Report Released Date/Time: Sep 04, 2024 06:28 AM Reporting Lab: [address] [address] Performing Lab: [address] [address] GLUCOSE-HAND MONITOR 114 mg/dL H -Sep 03, 2024 05:19 PM [facility] GLUCOSE-HAND MONITOR CAPILLARY Specime n Type: CAPILLARY Comment: Test performed by: [id number] Meter #: [id number] Ordering Provider: FRANCK TURNER Report Released Date/Time: Sep 03, 2024 05:37 PM Reporting Lab: [place] [phone] Performing Lab: [place] [phone] GLUCOSE-HAND MONITOR 124 mg/dL H 71-99 Sep 03, 2024 04:41 PM [facility] GLUCOSE-HAND MONITOR CAPILLARY Specime n Type: CAPILLARY Comment: Test performed by: [id number] Meter #: [id number] Ordering Provider: FRANCK TURNER Report Released Date/Time: Sep 03, 2024 06:09 PM Reporting Lab: [address] [address] Performing Lab: [address] [address] GLUCOSE-HAND MONITOR 112 mg/dL H 71-99 Sep 03, 2024 01:35 PM [facility] URINE LYTES URINE Specimen Type : URINE Comment: ~Altered mental status with no identifiable cause Ordering Provider: FRANCK TURNER Report Released Date/Time: Sep 02, 2024 04:44 PM Reporting Lab: [address] [address] Performing Lab: [address] [address] SODIUM 130 mmol/L POTASSIUM 47.6 mmol/L CHLORIDE 137 mmol/L Sep 03, 2024 01:35 PM [facility] CREATININE URINE Specimen Type: URINE Comment: ~Altered mental status with no identifiable cause Ordering Provider: FRANCK TURNER Report Released Date/Time: Sep 02, 2024 04:44 PM Reporting Lab: [address] [address] Performing Lab: [address] [address] CREATININE 150.9 mg/dL Sep 03, 2024 01:35 PM [facility] URINALYSIS WITH REFLEX TO CULTURE URINE Specimen Type: URINE Comment: ~Altered mental status with no identifiable cause Ordering Provider: FRANCK TURNER Report Released Date/Time: Sep 02, 2024 04:44 PM Reporting Lab: [address] [address] Performing Lab: [address] [address] URINE COLOR Yellow Colorless-Yellow APPEARANCE CLOUDY H [...] H 0-28 Sep 03, 2024 01:35 PM [facility] UREA NITROGEN URINE Specimen Type : URINE Comment: ~Altered mental status with no identifiable cause Ordering Provider: FRANCK TURNER Report Released Date/Time: Sep 02, 2024 04:44 PM Reporting Lab: [place] [phone] Performing Lab: [place] [phone] UREA NITROGEN 320 mg/dL Sep 03, 2024 01:35 PM [facility] OSMOLALITY URINE Specimen Type: URINE Comment: ~Altered mental status with no identifiable cause Ordering Provider: FRANCK TURNER Report Released Date/Time: Sep 02, 2024 04:44 PM Reporting Lab: [place] [phone] Performing Lab: [place] [phone] OSMOLALITY 522 mosm/kg 38-1400 Sep 03, 2024 11:58 AM [facility] GLUCOSE-HAND MONITOR CAPILLARY Specime n Type: CAPILLARY Comment: AAMIR RN notified Test performed by: [id number] Meter #: [id number] Ordering Provider: FRANCK TURNER Report Released Date/Time: Sep 03, 2024 12:15 PM Reporting Lab: [place] [phone] Performing Lab: [place] [phone] GLUCOSE-HAND MONITOR 135 mg/dL H 71-99 Sep 03, 2024 07:09 AM [facility] GLUCOSE-HAND MONITOR CAPILLARY Specime n Type: CAPILLARY Comment: Test performed by: [id number] Meter #: [id number] Ordering Provider: FRANCK TURNER Report Released Date/Time: Sep 03, 2024 07:26 AM Reporting Lab: [address] [address] Performing Lab: [address] [address] GLUCOSE-HAND MONITOR 120 mg/dL H 71-99 Sep 03, 2024 07:05 AM [facility] CBC/PLT BLOOD Specimen Type: BLOOD No comment entered. Ordering Provider: FRANCK TURNER Report Released Date/Time: Sep 02, 2024 04:29 PM Reporting Lab: [address] [address] Performing Lab: [address] [address] WBC 6.9 10*3/uL 5.0-10.0 RBC 3.48 10*6/uL L 4.6-6.2 HGB 9.5 g/dL L 14.0-18.0 HCT 29.1 L 42.0-52.0 MCV 83.6 fL 80.0-94.0 MCH 27.3 pg 27.0-31.0 MCHC 32.6 g/dL 32.0-36.0 PLT 258 10*3/uL 150-450 MPV 10.3 fL 9.0-13.1 RDW 14.8 11.0-16.0 NRBC 0.0 0.0-0.0 Sep 03, 2024 07:05 AM [facility] MAGNESIUM PLASMA Specimen Type: PLASM A [...] 02, 2024 04:29 PM Reporting Lab: [address] [address] Performing Lab: [address] [address] MAGNESIUM 1.7 mg/dL 1.6-2.6 Sep 03, 2024 07:05 AM [facility] GLYCOHEMOGLOBIN BLOOD Specimen Type: BLOOD Comment: Prediabetes: 5.7%-6.4% Diabetes: >= 6.5% [facility] guidelines for A1c interpretation: Glycemic control targets [...] 8.73 and 9.27. Ref: https://ngsp.org/CAPdata.asp. The in-house Sazze-PinBridge D-100 analyzer has a historical CV <= 2%. Contact the laboratory for further performance characteristics of this assay. Ordering Provider: FRANCK TURNER Report Released Date/Time: Sep 02, 2024 04:29 PM Reporting Lab: [address] [address] Performing Lab: [address] [address] GLYCOHEMOGLOBIN 5.6 4.4-5.6 Sep 03, 2024 07:05 AM [facility] PANEL 1 PLASMA Specimen Type: PLASM [...] 02, 2024 04:29 PM Reporting Lab: [address] [address] Performing Lab: [address] [address] CREATININE 0.82 mg/dL 0.72-1.25 UREA NITROGEN 12 mg/dL 9-25 GLUCOSE 109 mg/dL H 74-100 SODIUM 129 mmol/L L 136-145 POTASSIUM 4.2 mmol/L 3.5-5.1 CHLORIDE 99 mmol/L 98-107 CO2 21 mmol/L L 22-29 CALCIUM 8.1 mg/dL L 8.4-10.2 ANION GAP 9 meq/L 3-19 eGFR (CKD-EPI) 90 Sep 03, 2024 07:05 AM [facility] OSMOLALITY SERUM Specimen Type: SERUM No comment entered. Ordering Provider: FRANCK TURNER Report Released Date/Time: Sep 02, 2024 04:44 PM Reporting Lab: [address] [address] Performing Lab: [address] [address] OSMOLALITY 271 mosm/kg L 280-300 Sep 02, 2024 08:15 PM [facility] GLUCOSE-HAND MONITOR CAPILLARY Specime n Type: CAPILLARY Comment: AAMIR DEXTER notified Test performed by: [id number] Meter #: [id number] Ordering Provider: FRANCK TURNER Report Released Date/Time: Sep 02, 2024 08:57 PM Reporting Lab: [address] [address] Performing Lab: [address] [address] GLUCOSE-HAND MONITOR 126 mg/dL H 71-99 Sep 02, 2024 06:10 PM [facility] MRSA SURVL NARES DNA NARES Specime [...] Sep 02, 2024 05:12 PM Reporting Lab: [place] [phone] Performing Lab: [place] [phone] MRSA SURVL NARES DNA Negative Negative Sep 02, 2024 05:36 PM [facility] GLUCOSE-HAND MONITOR CAPILLARY Specime n Type: CAPILLARY Comment: Test performed by: [id number] Meter #: [id number] Ordering Provider: FRANCK TURNER Report Released Date/Time: Sep 02, 2024 05:53 PM Reporting Lab: [address] [address] Performing Lab: [place] [phone] GLUCOSE-HAND MONITOR 127 mg/dL H 71-99 Aug 29, 2024 10:04 PM [facility] URINALYSIS WITH REFLEX TO CULTURE URINE Specimen Type: URINE Comment: ~For Test: URINALYSIS WITH REFLEX TO CULTURE ~REORDER Ordering Provider: FELISA COLE Report Released Date/Time: Aug 29, 2024 09:36 PM Reporting Lab: [address] [address] Performing Lab: [address] [address] URINE COLOR Yellow Colorless-Yellow APPEARANCE Clear Clear [...] /[LPF] 0-28 Aug 29, 2024 08:32 PM [facility] HIGH SENSITIVITY TROPONIN I PLASMA Specimen [...] I information resource can be reached in [facility] in the Tools menu, under [...] 29, 2024 07:55 PM Reporting Lab: [address] [address] Performing Lab: [address] [address] HIGH SENSITIVITY TROPONIN I 7 4-35 Aug 29, 2024 08:32 PM [facility] CBC/PLT BLOOD Specimen Type: BLOOD No comment entered. Ordering Provider: FELISA COLE Report Released Date/Time: Aug 29, 2024 07:55 PM Reporting Lab: [address] [address] Performing Lab: [facility] [address] [facility] [address] WBC 11.2 10*3/uL H 5.0-10.0 RBC 3.97 10*6/uL L 4.6-6.2 HGB 10.9 g/dL L 14.0-18.0 HCT 33.5 L 42.0-52.0 MCV 84.4 fL 80.0-94.0 MCH 27.5 pg 27.0-31.0 MCHC 32.5 g/dL 32.0-36.0 PLT 230 10*3/uL 150-450 MPV 10.2 fL 9.0-13.1 RDW 14.6 11.0-16.0 NRBC 0.0 0.0-0.0 Aug 29, 2024 08:32 PM [facility] PANEL 5 PLASMA Specimen Type: PLASM [...] 29, 2024 07:55 PM Reporting Lab: [address] [address] Performing Lab: [address] [address] CREATININE 0.85 mg/dL 0.72-1.25 UREA NITROGEN 15 [...] 18 /min 93 % 0 [place] [facility] Sep 06, 2024 04:27 PM 97.5 F 67 /min 148/67 mm[Hg] 20 /min 93 % 0 [place] Sep 06, 2024 03:37 PM 0 [place] Sep 06, 2024 11:30 AM 0 [place] [facility] Sep 06, 2024 10:22 AM 97.4 F 71 /min 102/49 mm[Hg] 18 /min 93 % 0 [facility] Advance Directives: All [...] Mar 08, 2024 ADVANCE DIRECTIVE DISCUSSION [facility] Radiology Reports: +/- 30 days of [...] BRAIN W & W/O: LUIS MANUEL PERDOMO [id number] -1945 M Exm Date: SEP 06, 2024@13:40 Req Phys: JOHNNYFRANCK SYDNEY Pat Loc: 5-MED/TEL/09-06-2024@19:09 Img Loc: [facility] Service: MEDICAL SERVICE [place] [id number] (Case [id number] COMPLETE) MRI BRAIN W & W/O (MRI Detailed) CPT:79008 Contrast Media : Gadolinium Reason for Study: SEE CLINICAL HISTORY Pharmaceutical: GADOTERIDOL 279.3MG/ML 20ML INJ, 19ml Clinical History: MRI Screening (Required): IMPLANTED DEVICE DOCUMENTATION IMPLANTED DEVICE DOCUMENTATION NOT FOUND Does the [place] have any Cardiac Implants? None Does the have any implanted stimulators? None Does the have cochlear implants? No Does the [place] have Cerebral aneurysm clip(s)? I don't know Does the have any shrapnel? I don't know If yes, where in your body? Please list other implants not listed above: MRI table has a weight limit of 551 lbs. [place]'s Weight: *212 lb [96.16 kg] (09/04/2024 05:19) Is this patient claustrophobic?: No REASON FOR EXAM:MULTIPLE SCLEROSIS (indicate suspected or established) PERTINENT PATIENT HISTORY: MS c/f for flare Risk factors for GADOLINIUM NEPHROGENIC SYSTEMIC SCLEROSIS: Report Status: Verified Date Reported: SEP 06, 2024 Date Verified: SEP 06, 2024 Sheet Tester E-Sig: Report: MRI brain without and [...] Staff: ARCENIO LEYVA, Staff Radiologist Verified by gage maker for ARCENIO LEYVA /ARCENIO AVILA ELICIA-CDD [facility] Sep 06, 2024 01:40 PM MRI C SPINE W & W/ O CONTRAST(FURTHER SEQUENCES): LUIS MANUEL PERDOMO [id number] -[id number] M Exm Date: SEP 06, 2024@13:40 Req Phys: FRANCK TURNER [facility] Loc: 5-MED/TEL/09-07-2024@06:42 Img Loc: [facility] Service: [facility] [place] [id number] (Case [id number] COMPLETE) MRI C SPINE W & W/O CONTRAST(FURT(MRI Detailed) CPT:20216 Contrast Media : Gadolinium Reason for Study: SEE CLINICAL HISTORY Pharmaceutical: GADOTERIDOL 279.3MG/ML 20ML INJ, 19ml Clinical History: STATUS OF PLAIN FILMS:Not performed (Provide justification for MR W/O prior plain films below.) MRI for MS MRI Screening (Required): IMPLANTED DEVICE DOCUMENTATION IMPLANTED DEVICE DOCUMENTATION NOT FOUND Does the [place] have any Cardiac Implants? None Does the have any implanted stimulators? None Does the [place] have cochlear implants? No Does the have Cerebral aneurysm clip(s)? I don't know Does the have any shrapnel? I don't know If yes, where in your body? Please list other implants not listed above: MRI table has a weight limit of 551 lbs. [place]'s Weight: *212 lb [96.16 kg] (09/04/2024 05:19) Is this patient claustrophobic?: No REASON FOR EXAM: MULTIPLE SCLEROSIS (indicate suspected or established) PERTINENT PATIENT HISTORY: MS c/f flare Risk factors for GADOLINIUM NEPHROGENIC SYSTEMIC SCLEROSIS: Report Status: Verified Date Reported: SEP 07, 2024 Date Verified: SEP 07, 2024 Sheet Tester E-Sig: Report: EXAMINATION: MRI OF THE [...] Interpreting Staff: HUANG TAI, Radiologist Verified by gage maker for HUANG TAI /HUANG [facility] Sep 03, 2024 10:45 AM CHEST SINGLE(1) EW: LUIS MANUEL PERDOMO [id number] -1945 M Exm Date: SEP 03, 2024@10:45 Req Phys: FRANCK TURNER Pat Loc: 5-MED/TEL/09-03-2024@10:56 Img Loc: CDD RADIOLOGY Service: [place] [address] (Case [id number] COMPLETE)CHEST SINGLE(1) VIEW (RAD Detailed) CPT:02754 Proc Modifiers : PORTABLE EXAM Reason for Study: Eval volume status Clinical History: Report Status: Verified Date Reported: SEP 03, 2024 Date Verified: SEP 03, 2024 Sheet Tester E-Sig: Report: EXAMINATION: SINGLE VIEW CHEST [...] Interpreting Staff: HUANG TAI, Radiologist Verified by gage maker for HUANG TAI /HUANG WHEATLEY-[facility] Aug 29, 2024 08:[address] HEAD W/O CONT: LUIS MANUEL PERDOMO [id number] -1945 M Exm Date: AUG 29, 2024@20:28 Req Phys: FELISA COLE Loc: ED/4P-12A (Req'g Loc) Img Loc: CT SCAN Service: [place] [address] (Case [id number] COMPLETE) CT HEAD W/O CONT (CT Detailed) CPT:28540 Reason for Study: SEE CLINICAL HISTORY Clinical History: REASON FOR SEND OUT: ATTENDING PHYSICIAN NAME: New transient neurological s/s - suspected TIA HISTORY/REASON FOR EXAM: confusion Report Status: Verified Date Reported: AUG 29, 2024 Date Verified: AUG 29, 2024 Sheet Tester E-Sig: Report: HISTORY confusion COMPARISON No [...] Staff: ABDIRAHMAN CROW, Staff Physician Verified by gage maker for ABDIRAHMAN CROW /[facility]DIRAHMAN [facility] [...] PORT: Reporting Lab: [facility] [IA# [id number]] [address] [place] [id number] Accession [UID]: [id number] [[id number]] Received: Sep 03, 2024@14:02 Collection sample: URINE, [...] Bacteriology Report Performed By: [facility] [IA# [id number]] [address] [place], [place] [id number] MAG[facility] Sep 02, 2024 06:00 PM LR MICROBIOLOGY RE PORT: Reporting Lab: [facility] [[facility]# [id number]] [address] [place], [place] [id number] Accession [UID]: [id number] [[id number]] Received: Sep 02, 2024@18:07 Collection sample: BLD CULTURE BOTTLES Collection date: Sep 02, 2024 18:00 Site/Specimen: BLOOD Provider: FRANCK TURNER Comment on specimen: L HAND Test(s) ordered: CULTURE, BLOOD................ completed: Sep 08, 2024 * BACTERIOLOGY FINAL REPORT => Sep 08, 2024 08:25 TECH CODE: [id number] Bacteriology Remark(s): Blood culture status=NO GROWTH (unless notified otherwise) 09/03/2024 AEROBIC: NO GROWTH ANAEROBIC: NO GROWTH =--=--=--=--=--=--=--=--=--=-- =--=--=--=--=--=--=--=--=--=-- =--=--=--=--=--=-- Performing Laboratory: Bacteriology Report Performed By: [facility] [CLIA# [id number]] [address] [place] [id number] MAG[facility] Aug 29, 2024 10:18 PM LR MICROBIOLOGY RE PORT: Reporting Lab: [facility] [IA# [id number]] [address] [place], [place] [address] Accession [UID]: [id number] [[id number]] Received: Aug 29, 2024@22:18 Collection sample: URINE, CLEAN CATCH Collection date: Aug 29, 2024 22:18 Site/Specimen: URINE Provider: FELISA COLE Test(s) ordered: CULTURE, URINE................ completed: Aug 31, 2024 09:51 * BACTERIOLOGY FINAL REPORT => Aug 31, 2024 09:51 TECH CODE: [id number] Bacteriology Remark(s): NO GROWTH 08/30/2024 <10,000 CFU/ML. 08/31/2024 =--=--=--=--=--=--=--=--=--=-- =--=--=--=--=--=--=--=--=--=-- =--=--=--=--=--=-- Performing Laboratory: Bacteriology Report Performed By: [facility] [CLIA# [id number]] [address] [place] [address] MAGDY [facility]RES[facility] Encounter Notes: All associated encounter notes This section contains the clinical notes associated to the Encounter. Date/Time Encounter Note(s) Provider Source Sep 06, 2024 10:05 AM OCCUPATIONAL THERA PY CONSULT: LOCAL TITLE: OCCUPATIONAL THERAPY CONSULT RESPONSE STANDARD TITLE: OCCUPATIONAL THERAPY CONSULT DATE OF NOTE: SEP 06, 2024@10:05 ENTRY DATE: SEP 06, 2024@13:55:35 AUTHOR: MARISSA HERRERA EXP COSIGNER: URGENCY: STATUS: COMPLETED Type: OT evaluation Diagnosis: Suspected HF Reason for referral: OT eval and Recs Precautions: none Referring team: orange Time: 23 minutes (93622-15 mins; 47581- 8 mins) Social: Vet lives w/spouse in 2 story house w/ramp to enter. Reports recent fall. stays on main level PLOF: Vet requires assistance w/nearly all BADLS @least w/50%. Is able to perform functional mobility w/AD to/from bathroom. Also able to perform toilet/shower chair transfers w/o assistance (only SBA) Equipment: walk in shower, shower chair, GB, HHSH, GB, handicap height toilet S. Seen on 5M, nursing ok'd, seated in b/s chair on arrival. PT present. Medicine team and RN also present. in the middle of session became orthostatic and symptomatic (palor and lightheaded), BP (noted below). RN and medicine team resident present in room during episode. [place] improved by end of session and engaging w/RN and resident. Pt c/o and pain: none O: Vitals: BP: 92/47, 88/51, 109/49 symptomatic, then improving o2: 93% on 1LNC Lines: Pur wic 1LNC Oriented to: Person, Place, Time Command followin% BUE AROM: WFL Strength: BUE WFL FMC/coordination: WFL Orchid Worker Strength:WFL Sensation: WFL Other: Sitting Balance (ADL):G Standing Balance (ADL):P Bed Mobility: NT in b/s chair on arrival ADLS As Follows: Feeding - s/u Grooming - TBD UBD - MIN A *sim LBD - MAX A *per observation Bathing(UB/LB)-MAX A *per observation Toileting- MAX A *per observation Toilet Transfer - deferred, unsafe to perform Tub/Shower Transfer-deferred, unsafe to perform Tx/Intervention: - Educated on the purpose of OT, potential DME/AE - sit to stand to RW: MIN A X 1, 2 - brief static stand w/RW: CGA<>MIN A x 1, returned to chair - stepped out of room to gather UB bathing/grooming task, then becoming palor and lightheaded (Spouse made OT aware), RN notified and entered room, along w/medicine team resident - vet put into partial supine position, w/symptoms improving Equipment provided: TBD A: Vet is pleasant and cooperative with tx. He demonstrated G BUE function and sitting balance. P standing, although only required MIN A X 2. Full BADLS limited this date d/t medical episode, however based off presentation would require max A or great to perform. Will benefit from OT while in house. Pt left at end of session: Seated in b/s chair, call light and side table in reach.Educated to call for assist w/ any needs he may have. Chair alarm in place, RN aware and present in room. P: OT 3-5x weekly 1x daily for therapeutic activity/ exercise and self-care management Goals (STG/LTG): 1.) Perform UB/LB self-care tasks w/MOD A 2.) Perform ADL toilet/tub/shower transfers w/CGA 3.) Demo competency w/ AE/DME as needed for d/c DISCHARGE PLAN/DISPOSITION: Subacute Rehab /es/ MARISSA HERRERA OTR/L OCCUPATIONAL THERAPIST Signed: 09/06/2024 14:40 MARISSA HERRERA-[facility]
--- OUTSIDE RECORDS SUMMARY | 2024-09-06 07:04 | XMS_ITS | Encounter Summary ---
Author Name [facility] [place] Organization [facility] [place] Address [address] [place] [id number] Care Team Providers Care Smeller Name Role Phone YULISSA HENDERSON Primary Care [...] PLAN F Mar 24, 2014 PLAN F [id number] LUIS MANUEL PERDOMO PATIENT [facility] PREFERRED PROVIDER ORGANIZAT ION (PPO) [facility] Sep 21, 2012 [id number] LUIS MANUEL PERDOMO PATIENT [employer] [facility] ([id number]) PRESCRIPT ION [id number] Sep 21, 2012 [id number] LUIS MANUEL PERDOMO PATIENT MEDICARE (WNR) MEDICARE (M) PART B Sep 21, 2012 PART B [id number] NOEMI PERDOMO PATIENT MEDICARE (WNR) MEDICARE (M) PART A Jan 22, 2011 PART A [id number] NOEMI PERDOMO PATIENT MEDICARE PART D (WNR) MEDICARE (M) PART D Mar 24, 2014 PART D [id number] LUIS MANUEL PERDOMO PATIENT Selected Encounter This section includes the information on record at [place] for the Encounter. Date/Time Encounter Type Encounter Description Reason Provider Source Sep 06, 2024 11:04 AM [facility] IP/OBS MODERATE 35 [facility]AL INTERNAL [facility]ICINE [facility] Encounter Template Text not used by [place] Plan of Treatment: Future Appointments (+ 6 months) and Future Tests (+/- 45 days) The Plan of Treatment section includes future care activities for the patient from all [place] treatmentfacilities. This section includes future appointments and future orders which are active, pending or scheduled. Future Appointments This section includes appointments that were scheduled to occur 6 months from the date of the Encounter, up to a maximum of 20 appointments. The data comes from all [place] treatment facilities. Appointment Date/Time Appointment Type Appointme nt Facility Name Sep 13, 2024 08:00 AM AMBULATORY - NONE [place] [facility] Sep 30, 2024 01:30 PM AMBULATORY - SURGERY [place] [facility] Active, Pending, and Scheduled Orders This section includes a listing of several types of active, pending, and scheduled orders, including clinic medications orders, diagnostic test orders, procedure orders and consult orders; where the start date of the order is 45 days before the date of the Encounter or 45 days after the date of theEncounter. The data comes from all [place] treatment facilities. Test Date/Time Test Type Test Details Facility Name Sep 13, 2024 01:33 PM Consult Order [facility] Cons Medical Educator's Choice [facility] Lab Results: +/- 30 days of the encounter This section includes the Chemistry and Hematology Lab Results on record with [place] for the patient. Radiology Reports and Pathology [...] Specimen Type: CAPILLARY Comment: Test performed by: [id number] Meter #: [id number] Ordering Provider: FRANCK TURNER Report Released Date/Time: Sep 09, 2024 12:33 PM Reporting Lab: [address] [address] Performing Lab: [address] [address] GLUCOSE-HAND MONITOR 116 mg/dL H Sep 09, 2024 06:07 AM [facility] GLUCOSE-HAND MONITOR CAPILLARY Specime n Type: CAPILLARY Comment: Test performed by: [id number] Meter #: [id number] Ordering Provider: FRANCK TURNER Report Released Date/Time: Sep 09, 2024 08:17 AM Reporting Lab: [address] [address] Performing Lab: [address] [address] GLUCOSE-HAND MONITOR 112 mg/dL H Sep 08, 2024 09:13 PM [facility] GLUCOSE-HAND MONITOR CAPILLARY Specime n Type: CAPILLARY Comment: Test performed by: [id number] Meter #: [id number] Ordering Provider: FRANCK TURNER Report Released Date/Time: Sep 08, 2024 09:31 PM Reporting Lab: [address] [address] Performing Lab: [address] [address] GLUCOSE-HAND MONITOR 107 mg/dL H Sep 08, 2024 03:49 PM [facility] GLUCOSE-HAND MONITOR CAPILLARY Specime n Type: CAPILLARY Comment: AAMIR RN notified Test performed by: [id number] Meter #: [id number] Ordering Provider: FRANCK TURNER Report Released Date/Time: Sep 08, 2024 04:33 PM Reporting Lab: [address] [address] Performing Lab: [address] [address] GLUCOSE-HAND MONITOR 162 mg/dL H Sep 08, 2024 11:43 AM [facility] GLUCOSE-HAND MONITOR CAPILLARY Specime n Type: CAPILLARY Comment: AAMIR RN notified Test performed by: [id number] Meter #: [id number] Ordering Provider: FRANCK TURNER Report Released Date/Time: Sep 08, 2024 12:03 PM Reporting Lab: [place] [phone] Performing Lab: [address] [address] GLUCOSE-HAND MONITOR 133 mg/dL H Sep 08, 2024 06:13 AM [facility] GLUCOSE-HAND MONITOR CAPILLARY Specime n Type: CAPILLARY Comment: Test performed by: [id number] Meter #: [id number] Ordering Provider: FRANCK TURNER Report Released Date/Time: Sep 08, 2024 06:46 AM Reporting Lab: [place] [phone] Performing Lab: [address] [address] GLUCOSE-HAND MONITOR 104 mg/dL H Sep 07, 2024 07:59 PM [facility] GLUCOSE-HAND MONITOR CAPILLARY Specime n Type: CAPILLARY Comment: Test performed by: [id number] Meter #: [id number] Ordering Provider: FRANCK TURNER Report Released Date/Time: Sep 07, 2024 09:05 PM Reporting Lab: [place] [phone] Performing Lab: [address] [address] GLUCOSE-HAND MONITOR 107 mg/dL H Sep 07, 2024 04:39 PM [facility] GLUCOSE-HAND MONITOR CAPILLARY Specime n Type: CAPILLARY Comment: Test performed by: [id number] Meter #: [id number] Ordering Provider: FRANCK TURNER Report Released Date/Time: Sep 07, 2024 05:09 PM Reporting Lab: [address] [address] Performing Lab: [address] [address] GLUCOSE-HAND MONITOR 105 mg/dL H Sep 07, 2024 11:41 AM [facility] GLUCOSE-HAND MONITOR CAPILLARY Specime n Type: CAPILLARY Comment: Test performed by: [id number] Meter #: [id number] Ordering Provider: FRANCK TURNER Report Released Date/Time: Sep 07, 2024 12:41 PM Reporting Lab: [place] [phone] Performing Lab: [place] [phone] GLUCOSE-HAND MONITOR 144 mg/dL H Sep 07, 2024 05:56 AM [facility] GLUCOSE-HAND MONITOR CAPILLARY Specime n Type: CAPILLARY Comment: Test performed by: [id number] Meter #: [id number] Ordering Provider: FRANCK TURNER Report Released Date/Time: Sep 07, 2024 06:31 AM Reporting Lab: [place] [phone] Performing Lab: [place] [phone] GLUCOSE-HAND MONITOR 96 mg/dL Sep 06, 2024 08:10 PM [facility] GLUCOSE-HAND MONITOR CAPILLARY Specime n Type: CAPILLARY Comment: Test performed by: [id number] Meter #: [id number] Ordering Provider: FRANCK TURNER Report Released Date/Time: Sep 06, 2024 08:52 PM Reporting Lab: [place] [phone] Performing Lab: [place] [phone] GLUCOSE-HAND MONITOR 124 mg/dL H Sep 06, 2024 04:27 PM [facility] GLUCOSE-HAND MONITOR CAPILLARY Specime n Type: CAPILLARY Comment: Test performed by: [id number] Meter #: [id number] Ordering Provider: FRANCK TURNER Report Released Date/Time: Sep 06, 2024 05:15 PM Reporting Lab: [place] [phone] Performing Lab: [place] [phone] GLUCOSE-HAND MONITOR 107 mg/dL H Sep 06, 2024 12:12 PM [facility] GLUCOSE-HAND MONITOR CAPILLARY Specime n Type: CAPILLARY Comment: Test performed by: [id number] Meter #: [id number] Ordering Provider: FRANCK TURNER Report Released Date/Time: Sep 06, 2024 12:29 PM Reporting Lab: [address] [address] Performing Lab: [address] [address] GLUCOSE-HAND MONITOR 181 mg/dL H Sep 06, 2024 06:13 AM [facility] GLUCOSE-HAND MONITOR CAPILLARY Specime n Type: CAPILLARY Comment: Test performed by: [id number] Meter #: [id number] Ordering Provider: FRANCK TURNER Report Released Date/Time: Sep 06, 2024 06:36 AM Reporting Lab: [place] [phone] Performing Lab: [place] [phone] GLUCOSE-HAND MONITOR 102 mg/dL H Sep 05, 2024 08:47 PM [facility] GLUCOSE-HAND MONITOR CAPILLARY Specime n Type: CAPILLARY Comment: Test performed by: [id number] Meter #: [id number] Ordering Provider: FRANCK TURNER Report Released Date/Time: Sep 06, 2024 02:13 AM Reporting Lab: [address] [address] Performing Lab: [address] [address] GLUCOSE-HAND MONITOR 103 mg/dL H Sep 05, 2024 04:40 PM [facility] GLUCOSE-HAND MONITOR CAPILLARY Specime n Type: CAPILLARY Comment: AAMIR RN notified Test performed by: [id number] Meter #: [id number] Ordering Provider: FRANCK TURNER Report Released Date/Time: Sep 05, 2024 05:11 PM Reporting Lab: [address] [address] Performing Lab: [address] [address] GLUCOSE-HAND MONITOR 113 mg/dL H Sep 05, 2024 12:06 PM [facility] GLUCOSE-HAND MONITOR CAPILLARY Specime n Type: CAPILLARY Comment: Test performed by: [id number] Meter #: [id number] Ordering Provider: FRANCK TURNER Report Released Date/Time: Sep 05, 2024 12:23 PM Reporting Lab: [address] [address] Performing Lab: [address] [address] GLUCOSE-HAND MONITOR 115 mg/dL H -Sep 05, 2024 06:26 AM [facility] GLUCOSE-HAND MONITOR CAPILLARY Specime n Type: CAPILLARY Comment: AAMIR Correction Dose Test performed by: [id number] Meter #: [id number] Ordering Provider: FRANCK TURNER Report Released Date/Time: Sep 05, 2024 06:43 AM Reporting Lab: [address] [address] Performing Lab: [address] GLUCOSE-HAND MONITOR 111 mg/dL H Sep 04, 2024 08:59 PM [facility] GLUCOSE-HAND MONITOR CAPILLARY Specime n Type: CAPILLARY Comment: AAMIR RN notified Test performed by: [id number] Meter #: [id number] Ordering Provider: FRANCK TURNER Report Released Date/Time: Sep 04, 2024 09:36 PM Reporting Lab: [address] [address] Performing Lab: [address] [address] GLUCOSE-HAND MONITOR 123 mg/dL H Sep 04, 2024 04:41 PM [facility] GLUCOSE-HAND MONITOR CAPILLARY Specime n Type: CAPILLARY Comment: AAMIR RN notified Test performed by: [id number] Meter #: [id number] Ordering Provider: FRANCK TURNER Report Released Date/Time: Sep 04, 2024 05:03 PM Reporting Lab: [address] [address] Performing Lab: [address] [address] GLUCOSE-HAND MONITOR 118 mg/dL H -Sep 04, 2024 12:36 PM [facility] GLUCOSE-HAND MONITOR CAPILLARY Specime n Type: CAPILLARY Comment: AAMIR RN notified Test performed by: [id number] Meter #: [id number] Ordering Provider: FRANCK TURNER Report Released Date/Time: Sep 04, 2024 12:53 PM Reporting Lab: [place] [phone] Performing Lab: [place] [address] GLUCOSE-HAND MONITOR 129 mg/dL H -Sep 04, 2024 12:03 PM [facility] RESPIRATORY VIRUS PANEL (BIOFIRE) NASOPHARYN X Specimen Type: NASOPHARYNX Comment: ~For Test: RESPIRATORY VIRUS PANEL (BIOFIRE) ~ORDER READ BACK TO: FRANCK TURNER 09/04/24@11:30 Ordering Provider: FRANCK TURNER Report Released Date/Time: Sep 04, 2024 11:33 AM Reporting Lab: [place] [phone] Performing Lab: [place] [phone] ADENOVIRUS (BIOFIRE) Not Detected -Not D etected [...] -Not Detected Sep 04, 2024 06:55 AM [facility] MAGNESIUM PLASMA Specimen Type: PLASM [...] Sep 03, 2024 11:10 AM Reporting Lab: [place] [id number] [facility] [address] Performing Lab: [address] [address] MAGNESIUM 1.8 mg/dL 1.6-2.6 Sep 04, 2024 06:55 AM [facility] PANEL 1 PLASMA Specimen Type: PLASM [...] Sep 03, 2024 11:10 AM Reporting Lab: [address] [address] Performing Lab: [address] [address] CREATININE 0.75 mg/dL 0.72-1.25 UREA NITROGEN 13 mg/dL 9-25 GLUCOSE 105 mg/dL H 74-100 SODIUM 128 mmol/L L 136-145 POTASSIUM 3.9 mmol/L 3.5-5.1 CHLORIDE 99 mmol/L 98-107 CO2 21 mmol/L L 22-29 CALCIUM 8.0 mg/dL L 8.4-10.2 ANION GAP 8 meq/L 3-19 eGFR (CKD-EPI) >90 Sep 04, 2024 06:02 AM [facility] GLUCOSE-HAND MONITOR CAPILLARY Specime n Type: CAPILLARY Comment: Test performed by: [id number] Meter #: [id number] Ordering Provider: FRANCK TURNER Report Released Date/Time: Sep 04, 2024 06:28 AM Reporting Lab: [address] [address] Performing Lab: [address] [address] GLUCOSE-HAND MONITOR 114 mg/dL H 71-99 Sep 03, 2024 05:19 PM [facility] GLUCOSE-HAND MONITOR CAPILLARY Specime n Type: CAPILLARY Comment: Test performed by: [id number] Meter #: [id number] Ordering Provider: FRANCK TURNER Report Released Date/Time: Sep 03, 2024 05:37 PM Reporting Lab: [address] [address] Performing Lab: [address] [address] GLUCOSE-HAND MONITOR 124 mg/dL H 71-99 Sep 03, 2024 04:41 PM [facility] GLUCOSE-HAND MONITOR CAPILLARY Specime n Type: CAPILLARY Comment: Test performed by: [id number] Meter #: [id number] Ordering Provider: FRANCK TURNER Report Released Date/Time: Sep 03, 2024 06:09 PM Reporting Lab: [address] [address] Performing Lab: [address] [address] GLUCOSE-HAND MONITOR 112 mg/dL H 71-99 Sep 03, 2024 01:35 PM [facility] URINE LYTES URINE Specimen Type : URINE Comment: ~Altered mental status with no identifiable cause Ordering Provider: FRANCK TURNER Report Released Date/Time: Sep 02, 2024 04:44 PM Reporting Lab: [address] [address] Performing Lab: [address] [address] SODIUM 130 mmol/L POTASSIUM 47.6 mmol/L CHLORIDE 137 mmol/L Sep 03, 2024 01:35 PM [facility] CREATININE URINE Specimen Type: URINE Comment: ~Altered mental status with no identifiable cause Ordering Provider: FRANCK TURNER Report Released Date/Time: Sep 02, 2024 04:44 PM Reporting Lab: [address] [address] Performing Lab: [address] [address] CREATININE 150.9 mg/dL Sep 03, 2024 01:35 PM [facility] OSMOLALITY URINE Specimen Type: URINE Comment: ~Altered mental status with no identifiable cause Ordering Provider: FRANCK TURNER Report Released Date/Time: Sep 02, 2024 04:44 PM Reporting Lab: [address] [address] Performing Lab: [address] [address] OSMOLALITY 522 mosm/kg 38-1400 Sep 03, 2024 01:35 PM [facility] URINALYSIS WITH REFLEX TO CULTURE URINE Specimen Type: URINE Comment: ~Altered mental status with no identifiable cause Ordering Provider: FRANCK TURNER Report Released Date/Time: Sep 02, 2024 04:44 PM Reporting Lab: [address] [address] Performing Lab: [address] [address] URINE COLOR Yellow Colorless-Yellow APPEARANCE CLOUDY H [...] H 0-28 Sep 03, 2024 01:35 PM [facility] UREA NITROGEN URINE Specimen Type : URINE Comment: ~Altered mental status with no identifiable cause Ordering Provider: FRANCK TURNER Report Released Date/Time: Sep 02, 2024 04:44 PM Reporting Lab: [place] [phone] Performing Lab: [place] [phone] UREA NITROGEN 320 mg/dL Sep 03, 2024 11:58 AM [facility] GLUCOSE-HAND MONITOR CAPILLARY Specime n Type: CAPILLARY Comment: AAMIR RN notified Test performed by: [id number] Meter #: [id number] Ordering Provider: FRANCK TURNER Report Released Date/Time: Sep 03, 2024 12:15 PM Reporting Lab: [address] [address] Performing Lab: [address] [address] GLUCOSE-HAND MONITOR 135 mg/dL H 71-99 Sep 03, 2024 07:09 AM [facility] GLUCOSE-HAND MONITOR CAPILLARY Specime n Type: CAPILLARY Comment: Test performed by: [id number] Meter #: [id number] Ordering Provider: FRANCK TURNER Report Released Date/Time: Sep 03, 2024 07:26 AM Reporting Lab: [address] [address] Performing Lab: [address] [address] GLUCOSE-HAND MONITOR 120 mg/dL H 71-99 Sep 03, 2024 07:05 AM [facility] CBC/PLT BLOOD Specimen Type: BLOOD No comment entered. Ordering Provider: FRANCK TURNER Report Released Date/Time: Sep 02, 2024 04:29 PM Reporting Lab: [place] [id number] [facility] [address] Performing Lab: [address] [address] WBC 6.9 10*3/uL 5.0-10.0 RBC 3.48 10*6/uL L 4.6-6.2 HGB 9.5 g/dL L 14.0-18.0 HCT 29.1 L 42.0-52.0 MCV 83.6 fL 80.0-94.0 MCH 27.3 pg 27.0-31.0 MCHC 32.6 g/dL 32.0-36.0 PLT 258 10*3/uL 150-450 MPV 10.3 fL 9.0-13.1 RDW 14.8 11.0-16.0 NRBC 0.0 0.0-0.0 Sep 03, 2024 07:05 AM [facility] MAGNESIUM PLASMA Specimen Type: PLASM A [...] Sep 02, 2024 04:29 PM Reporting Lab: [address] [address] Performing Lab: [address] [address] MAGNESIUM 1.7 mg/dL 1.6-2.6 Sep 03, 2024 07:05 AM [facility] PANEL 1 PLASMA Specimen Type: PLASM [...] Sep 02, 2024 04:29 PM Reporting Lab: [address] [address] Performing Lab: [address] [address] CREATININE 0.82 mg/dL 0.72-1.25 UREA NITROGEN 12 mg/dL 9-25 GLUCOSE 109 mg/dL H 74-100 SODIUM 129 mmol/L L 136-145 POTASSIUM 4.2 mmol/L 3.5-5.1 CHLORIDE 99 mmol/L 98-107 CO2 21 mmol/L L 22-29 CALCIUM 8.1 mg/dL L 8.4-10.2 ANION GAP 9 meq/L 3-19 eGFR (CKD-EPI) 90 Sep 03, 2024 07:05 AM [facility] GLYCOHEMOGLOBIN BLOOD Specimen Type: BLOOD Comment: Prediabetes: 5.7%-6.4% Diabetes: >= 6.5% [facility] guidelines for A1c interpretation: [...] 8.73 and 9.27. Ref: https://ngsp.org/CAPdata.asp. The in-house Sodraft-Avison Young D-100 analyzer has a historical CV <= 2%. Contact the laboratory for further performance characteristics of this assay. Ordering Provider: FRANCK TURNER Report Released Date/Time: Sep 02, 2024 04:29 PM Reporting Lab: [address] [address] Performing Lab: [address] [address] GLYCOHEMOGLOBIN 5.6 4.4-5.6 Sep 03, 2024 07:05 AM [facility] OSMOLALITY SERUM Specimen Type: SERUM No comment entered. Ordering Provider: FRANCK TURNER Report Released Date/Time: Sep 02, 2024 04:44 PM Reporting Lab: [address] [address] Performing Lab: [address] [address] OSMOLALITY 271 mosm/kg L 280-300 Sep 02, 2024 08:15 PM [facility] GLUCOSE-HAND MONITOR CAPILLARY Specime n Type: CAPILLARY Comment: AAMIR RN notified Test performed by: [id number] Meter #: [id number] Ordering Provider: FRANCK TURNER Report Released Date/Time: Sep 02, 2024 08:57 PM Reporting Lab: [address] [address] Performing Lab: [address] [address] GLUCOSE-HAND MONITOR 126 mg/dL H 71-99 Sep 02, 2024 06:10 PM [facility] MRSA SURVL NARES DNA NARES Specime [...] may not indicate eradication success. Ordering Provider: FARNCK TURNER Report Released Date/Time: Sep 02, 2024 05:12 PM Reporting Lab: [address] [address] Performing Lab: [address] [address] MRSA SURVL NARES DNA Negative Negative Sep 02, 2024 05:36 PM [facility] GLUCOSE-HAND MONITOR CAPILLARY Specime n Type: CAPILLARY Comment: Test performed by: [id number] Meter #: [id number] Ordering Provider: FRANCK TURNER Report Released Date/Time: Sep 02, 2024 05:53 PM Reporting Lab: [address] [address] Performing Lab: [address] [address] GLUCOSE-HAND MONITOR 127 mg/dL H 71-99 Aug 29, 2024 10:04 PM [facility] URINALYSIS WITH REFLEX TO CULTURE URINE Specimen Type: URINE Comment: ~For Test: URINALYSIS WITH REFLEX TO CULTURE ~REORDER Ordering Provider: FELISA COLE Report Released Date/Time: Aug 29, 2024 09:36 PM Reporting Lab: [address] [address] Performing Lab: [address] [address] URINE COLOR Yellow Colorless-Yellow APPEARANCE Clear Clear [...] 0-28 Aug 29, 2024 08:32 PM [facility] HIGH SENSITIVITY TROPONIN I PLASMA Specimen [...] I information resource can be reached in [facility] in the Tools menu, under the Education [...] Aug 29, 2024 07:55 PM Reporting Lab: [address] [address] Performing Lab: [address] [address] HIGH SENSITIVITY TROPONIN I 7 4-35 Aug 29, 2024 08:32 PM [facility] CBC/PLT BLOOD Specimen Type: BLOOD No comment entered. Ordering Provider: FELISA COLE Report Released Date/Time: Aug 29, 2024 07:55 PM Reporting Lab: [address] [address] Performing Lab: [address] [address] WBC 11.2 10*3/uL H 5.0-10.0 RBC 3.97 10*6/uL L 4.6-6.2 HGB 10.9 g/dL L 14.0-18.0 HCT 33.5 L 42.0-52.0 MCV 84.4 fL 80.0-94.0 MCH 27.5 pg 27.0-31.0 MCHC 32.5 g/dL 32.0-36.0 PLT 230 10*3/uL 150-450 MPV 10.2 fL 9.0-13.1 RDW 14.6 11.0-16.0 NRBC 0.0 0.0-0.0 Aug 29, 2024 08:32 PM [facility] Specimen Type: [...] I information resource can be reached in [facility] in the Tools menu, under the Education [...] Aug 29, 2024 07:55 PM Reporting Lab: [address] [address] Performing Lab: [address] [address] CREATININE 0.85 mg/dL 0.72-1.25 UREA NITROGEN 15 [...] 93 % 0 [place] Sep 06, 2024 04:27 PM 97.5 F 67 /min 148/67 mm[Hg] 20 /min 93 % [address] [place] [facility] Sep 06, 2024 03:37 PM 0 [place] Sep 06, 2024 11:30 AM 0 [place] Sep 06, 2024 10:22 AM 97.4 F 71 /min 102/49 mm[Hg] 18 /min 93 % 0 [place] [facility] Advance Directives: All historical and current Section Date Range: From patient's date of to the date document was created. This section includes ALL of a patient's completed or amended [place] Advance and Rescinded Directives. The entries below indicate that a directive exists for the patient, but an actual copy is not included with this document. The data comes from all [place] facilities. Date Advance Directives Provider Source Mar 08, 2024 ADVANCE DIRECTIVE DISCUSSION [facility] Radiology Reports: +/- 30 days of the [...] the Encounter. The data comes from all [place] treatment facilities. Date/Time Radiology Report Provider Source Sep 06, 2024 01:40 PM MRI BRAIN W & W/O: LUIS MANUEL PERDOMO [id number] -1945 M Exm Date: SEP 06, 2024@13:40 Req Phys: FRANCK TURNER Pat Loc: 5-MED/TEL/09-06-2024@19:09 Img Loc: [facility] Service: [place] [address] (Case [id number] COMPLETE) MRI BRAIN W & W/O (MRI Detailed) CPT:03262 Contrast Media : Gadolinium Reason for Study: SEE CLINICAL HISTORY Pharmaceutical: GADOTERIDOL 279.3MG/ML 20ML INJ, 19ml Clinical History: MRI Screening (Required): IMPLANTED DEVICE DOCUMENTATION IMPLANTED DEVICE DOCUMENTATION NOT FOUND Does the have any Cardiac Implants? None Does the have any implanted stimulators? None Does the have cochlear implants? No Does the have Cerebral aneurysm clip(s)? I don't know Does the Orcas have any shrapnel? I don't know If yes, where in your body? Please list other implants not listed above: MRI table has a weight limit of 551 lbs. Orcas's Weight: *212 lb [96.16 kg] (09/04/2024 05:19) Is this patient claustrophobic?: No REASON FOR EXAM:MULTIPLE SCLEROSIS (indicate suspected or established) PERTINENT PATIENT HISTORY: MS c/f for flare Risk factors for GADOLINIUM NEPHROGENIC SYSTEMIC SCLEROSIS: Report Status: Verified Date Reported: SEP 06, 2024 Date Verified: SEP 06, 2024 Paper Grader E-Sig: Report: MRI brain without and with [...] ARCENIO LEYVA, Staff Radiologist Verified by cyber instructor for ARCENIO LEYVA /ARCENIO AVILA [facility] Sep 06, 2024 01:40 PM MRI C SPINE W & W/ O CONTRAST(FURTHER SEQUENCES): LUIS MANUEL PERDOMO [id number] -1945 M Exm Date: SEP 06, 2024@13:40 Req Phys: AZARSUMMERFRANCK GRIMES Pat Loc: 5-MED/TEL/09-07-2024@06:42 Img Loc: [facility] Service: [facility] [place] [id number] (Case [id number] COMPLETE) MRI C SPINE W & W/O CONTRAST(FURT(MRI Detailed) CPT:54642 Contrast Media : Gadolinium Reason for Study: SEE CLINICAL HISTORY Pharmaceutical: GADOTERIDOL 279.3MG/ML 20ML INJ, 19ml Clinical History: STATUS OF PLAIN FILMS:Not performed (Provide justification for MR W/O prior plain films below.) MRI for MS MRI Screening (Required): IMPLANTED DEVICE DOCUMENTATION IMPLANTED DEVICE DOCUMENTATION NOT FOUND Does the Orcas have any Cardiac Implants? None Does the have any implanted stimulators? None Does the Orcas have cochlear implants? No Does the [facility] have Cerebral aneurysm clip(s)? I don't know Does the Orcas have any shrapnel? I don't know If yes, where in your body? Please list other implants not listed above: MRI table has a weight limit of 551 lbs. Orcas's Weight: *212 lb [96.16 kg] (09/04/2024 05:19) Is this patient claustrophobic?: No REASON FOR EXAM: MULTIPLE SCLEROSIS (indicate suspected or established) PERTINENT PATIENT HISTORY: MS c/f flare Risk factors for GADOLINIUM NEPHROGENIC SYSTEMIC SCLEROSIS: Report Status: Verified Date Reported: SEP 07, 2024 Date Verified: SEP 07, 2024 Paper Grader E-Sig: Report: EXAMINATION: MRI OF THE CERVICAL [...] Staff: HUANG TAI, Radiologist Verified by cyber instructor for HUANG TAI /HUANG [facility] Sep 03, 2024 10:45 AM CHEST SINGLE(1) EW: LUIS MANUEL PERDOMO [id number] -1945 M Ex Date: SEP 03, 2024@10:45 Req Phys: FRANCK TURNER [facility] Loc: 5-MED/TEL/09-03-2024@10:56 Img Loc: D RADIOLOGY Service: [facility] [place] [id number] (Case [id number] COMPLETE)CHEST SINGLE(1) VIEW (RAD Detailed) CPT:57967 Proc Modifiers : PORTABLE EXAM Reason for Study: Eval volume status Clinical History: Report Status: Verified Date Reported: SEP 03, 2024 Date Verified: SEP 03, 2024 Paper Grader E-Sig: Report: EXAMINATION: SINGLE VIEW CHEST CLINICAL [...] Staff: HUANG TAI, Radiologist Verified by cyber instructor for HUANG TAI /HUANG [facility] Aug 29, 2024 08:[address] HEAD W/O CONT: LUIS MANUEL PERDOMO [id number] -1945 M Exm Date: AUG 29, 2024@20:28 Req Phys: FELISA COLE Loc: ED/4P-12A (Req'g Loc) Img Loc: CT SCAN Service: [place] [address] (Case [id number] COMPLETE) CT HEAD W/O CONT (CT Detailed) CPT:32105 Reason for Study: SEE CLINICAL HISTORY Clinical History: REASON FOR SEND OUT: ATTENDING PHYSICIAN NAME: New transient neurological s/s - suspected TIA HISTORY/REASON FOR EXAM: confusion Report Status: Verified Date Reported: AUG 29, 2024 Date Verified: AUG 29, 2024 Paper Grader E-Sig: Report: HISTORY confusion COMPARISON No prior [...] ABDIRAHMAN CROW, Staff Physician Verified by cyber instructor for ABDIRAHMAN CROW /GUERITA CROW,ABDIRAHMAN [facility] Pathology Reports: +/- 30 days of the [...] the Encounter. The data comes from all [place] treatment facilities. Date/Time Pathology Report Provider Source Sep 03, 2024 01:35 PM LR MICROBIOLOGY RE PORT: Reporting Lab: [facility] [CLIA# [id number]] [address] [place] [id number] Accession [UID]: [id number] [[id number]] Received: Sep 03, 2024@14:02 Collection sample: URINE, [...] Bacteriology Report Performed By: [facility] [CLIA# [id number]] [address] [place], [place] [id number] MAGDY [facility]ABRESE [facility] Sep 02, 2024 06:00 PM LR MICROBIOLOGY RE PORT: Reporting Lab: [facility] [IA# [id number]] [address] [place], [place] [id number] Accession [UID]: [id number] [[id number]] Received: Sep 02, 2024@18:07 Collection sample: BLD CULTURE BOTTLES Collection date: Sep 02, 2024 18:00 Site/Specimen: BLOOD Provider: FRANCK TURNER Comment on specimen: L HAND Test(s) ordered: CULTURE, BLOOD................ completed: Sep 08, 2024 * BACTERIOLOGY FINAL REPORT => Sep 08, 2024 08:25 TECH CODE: [id number] Bacteriology Remark(s): Blood culture status=NO GROWTH (unless notified otherwise) 09/03/2024 AEROBIC: NO GROWTH ANAEROBIC: NO GROWTH =--=--=--=--=--=--=--=--=--=-- =--=--=--=--=--=--=--=--=--=-- =--=--=--=--=--=-- Performing Laboratory: Bacteriology Report Performed By: [facility] [IA# [id number]] [address] [place], [place] [id number] [facility] Aug 29, 2024 10:18 PM LR MICROBIOLOGY RE PORT: Reporting Lab: [facility] [CLIA# [id number]] [address] [place], [place] [id number] Accession [UID]: [id number] [[id number]] Received: Aug 29, 2024@22:18 Collection sample: URINE, CLEAN CATCH Collection date: Aug 29, 2024 22:18 Site/Specimen: URINE Provider: FELISA COLE Test(s) ordered: CULTURE, URINE................ completed: Aug 31, 2024 09:51 * BACTERIOLOGY FINAL REPORT => Aug 31, 2024 09:51 TECH CODE: [id number] Bacteriology Remark(s): NO GROWTH 08/30/2024 <10,000 CFU/ML. 08/31/2024 =--=--=--=--=--=--=--=--=--=-- =--=--=--=--=--=--=--=--=--=-- =--=--=--=--=--=-- Performing Laboratory: Bacteriology Report Performed By: [facility] [CLIA# [id number]] [address] [place] [address] MAGDY CALABRESE-MALKA [facility]
--- OUTSIDE RECORDS SUMMARY | 2024-09-06 07:50 | XMS_ITS ---
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 SLE Sep 21, 2012 [id number] LUIS MANUEL PERDOMO PATIENT [facility] ([id number]) PRESCRIPT ION WL3A Sep 21, 2012 WL3A [id number] [phone] LUIS MANUEL PERDOMO PATIENT MEDICARE (WNR) MEDICARE (M) PART B Sep 21, 2012 PART B [id number] NOEMI PERDOMO PATIENT MEDICARE (WNR) MEDICARE (M) PART A Jan 22, 2011 PART A [id number] LEANNE, NOEMI PATIENT MEDICARE PART D (WNR) MEDICARE (M) PART D Mar 24, 2014 PART D [id number] LUIS MANUEL PERDOMO PATIENT Selected Encounter This section includes the information on record at [place] for the Encounter. Date/Time Encounter Type Encounter Description Reason Pro vider Source Sep 06, 2024 11:50 AM Inpatient Visit DAILY HOSPITALIZATION DATA [facility] Encounter Template Text not used by [place] Plan of Treatment: Future Appointments (+ 6 months) and Future Tests (+/- 45 days) The Plan of Treatment section includes future care activities for the patient from all [place] [facility]. This section includes future appointments and future orders which are active, pending or scheduled. Future Appointments This section includes appointments that were scheduled to occur 6 months from the date of the Encounter, up to a maximum of 20 appointments. The data comes from all [place] treatment facilities. Appointment Date/Time Appointment Type Appointme nt Facility Name Sep 13, 2024 08:00 AM AMBULATORY - NONE [facility] Sep 30, 2024 01:30 PM AMBULATORY - SURGERY [facility] Active, Pending, and Scheduled Orders [...] [facility] Cons Global Manager's Choice [facility] Lab Results: +/- 30 days of the encounter This section includes the Chemistry and Hematology Lab Results on record with [place] for the patient. Radiology Reports and Pathology [...] Specimen Type: CAPILLARY Comment: Test performed by: [id number] Meter #: [id number] Ordering Provider: FRANCK TURNER Report Released Date/Time: Sep 09, 2024 12:33 PM Reporting Lab: [address] [address] Performing Lab: [address] [address] GLUCOSE-HAND MONITOR 116 mg/dL H Sep 09, 2024 06:07 AM [facility] GLUCOSE-HAND MONITOR CAPILLARY Specime n Type: CAPILLARY Comment: Test performed by: [id number] Meter #: [id number] Ordering Provider: FRANCK TURNER Report Released Date/Time: Sep 09, 2024 08:17 AM Reporting Lab: [address] [address] Performing Lab: [address] [address] GLUCOSE-HAND MONITOR 112 mg/dL H Sep 08, 2024 09:13 PM [facility] GLUCOSE-HAND MONITOR CAPILLARY Specime n Type: CAPILLARY Comment: Test performed by: [id number] Meter #: [id number] Ordering Provider: FRANCK TURNER Report Released Date/Time: Sep 08, 2024 09:31 PM Reporting Lab: [address] [address] Performing Lab: [address] [address] GLUCOSE-HAND MONITOR 107 mg/dL H Sep 08, 2024 03:49 PM [facility] GLUCOSE-HAND MONITOR CAPILLARY Specime n Type: CAPILLARY Comment: AAMIR RN notified Test performed by: [id number] Meter #: [id number] Ordering Provider: FRANCK TURNER Report Released Date/Time: Sep 08, 2024 04:33 PM Reporting Lab: [address] [address] Performing Lab: [address] [address] GLUCOSE-HAND MONITOR 162 mg/dL H Sep 08, 2024 11:43 AM [facility] GLUCOSE-HAND MONITOR CAPILLARY Specime n Type: CAPILLARY Comment: AAMIR RN notified Test performed by: [id number] Meter #: [id number] Ordering Provider: FRANCK TURNER Report Released Date/Time: Sep 08, 2024 12:03 PM Reporting Lab: [address] [address] Performing Lab: [address] [address] GLUCOSE-HAND MONITOR 133 mg/dL H Sep 08, 2024 06:13 AM [facility] GLUCOSE-HAND MONITOR CAPILLARY Specime n Type: CAPILLARY Comment: Test performed by: [id number] Meter #: [id number] Ordering Provider: FRANCK TURNER Report Released Date/Time: Sep 08, 2024 06:46 AM Reporting Lab: [address] [address] Performing Lab: [address] [address] GLUCOSE-HAND MONITOR 104 mg/dL H Sep 07, 2024 07:59 PM [facility] GLUCOSE-HAND MONITOR CAPILLARY Specime n Type: CAPILLARY Comment: Test performed by: [id number] Meter #: [id number] Ordering Provider: FRANCK TURNER Report Released Date/Time: Sep 07, 2024 09:05 PM Reporting Lab: [address] [address] Performing Lab: [address] [address] GLUCOSE-HAND MONITOR 107 mg/dL H Sep 07, 2024 04:39 PM [facility] GLUCOSE-HAND MONITOR CAPILLARY Specime n Type: CAPILLARY Comment: Test performed by: [id number] Meter #: [id number] Ordering Provider: FRANCK TURNER Report Released Date/Time: Sep 07, 2024 05:09 PM Reporting Lab: [address] [address] Performing Lab: [address] [address] GLUCOSE-HAND MONITOR 105 mg/dL H Sep 07, 2024 11:41 AM [facility] GLUCOSE-HAND MONITOR CAPILLARY Specime n Type: CAPILLARY Comment: Test performed by: [id number] Meter #: [id number] Ordering Provider: FRANCK TURNER Report Released Date/Time: Sep 07, 2024 12:41 PM Reporting Lab: [address] [address] Performing Lab: [address] [address] GLUCOSE-HAND MONITOR 144 mg/dL H Sep 07, 2024 05:56 AM [facility] GLUCOSE-HAND MONITOR CAPILLARY Specime n Type: CAPILLARY Comment: Test performed by: [id number] Meter #: [id number] Ordering Provider: FRANCK TURNER Report Released Date/Time: Sep 07, 2024 06:31 AM Reporting Lab: [address] [address] Performing Lab: [address] [address] GLUCOSE-HAND MONITOR 96 mg/dL Sep 06, 2024 08:10 PM [facility] GLUCOSE-HAND MONITOR CAPILLARY Specime n Type: CAPILLARY Comment: Test performed by: [id number] Meter #: [id number] Ordering Provider: FRANCK TURNER Report Released Date/Time: Sep 06, 2024 08:52 PM Reporting Lab: [address] [address] Performing Lab: [address] [address] GLUCOSE-HAND MONITOR 124 mg/dL H Sep 06, 2024 04:27 PM [facility] GLUCOSE-HAND MONITOR CAPILLARY Specime n Type: CAPILLARY Comment: Test performed by: [id number] Meter #: [id number] Ordering Provider: FRANCK TURNER Report Released Date/Time: Sep 06, 2024 05:15 PM Reporting Lab: [address] [address] Performing Lab: [address] [address] GLUCOSE-HAND MONITOR 107 mg/dL H Sep 06, 2024 12:12 PM [facility] GLUCOSE-HAND MONITOR CAPILLARY Specime n Type: CAPILLARY Comment: Test performed by: [id number] Meter #: [id number] Ordering Provider: FRANCK TURNER Report Released Date/Time: Sep 06, 2024 12:29 PM Reporting Lab: [address] [address] Performing Lab: [address] [address] GLUCOSE-HAND MONITOR 181 mg/dL H -Sep 06, 2024 06:13 AM [facility] GLUCOSE-HAND MONITOR CAPILLARY Specime n Type: CAPILLARY Comment: Test performed by: [id number] Meter #: [id number] Ordering Provider: FRANCK TURNER Report Released Date/Time: Sep 06, 2024 06:36 AM Reporting Lab: [address] [address] Performing Lab: [address] [address] GLUCOSE-HAND MONITOR 102 mg/dL H Sep 05, 2024 08:47 PM [facility] GLUCOSE-HAND MONITOR CAPILLARY Specime n Type: CAPILLARY Comment: Test performed by: [id number] Meter #: [id number] Ordering Provider: FRANCK TURNER Report Released Date/Time: Sep 06, 2024 02:13 AM Reporting Lab: [address] [address] Performing Lab: [address] [address] GLUCOSE-HAND MONITOR 103 mg/dL H Sep 05, 2024 04:40 PM [facility] GLUCOSE-HAND MONITOR CAPILLARY Specime n Type: CAPILLARY Comment: AAMIR RN notified Test performed by: [id number] Meter #: [id number] Ordering Provider: FRANCK TURNER Report Released Date/Time: Sep 05, 2024 05:11 PM Reporting Lab: [address] [address] Performing Lab: [address] [address] GLUCOSE-HAND MONITOR 113 mg/dL H Sep 05, 2024 12:06 PM [facility] GLUCOSE-HAND MONITOR CAPILLARY Specime n Type: CAPILLARY Comment: Test performed by: [id number] Meter #: [id number] Ordering Provider: FRANCK TURNER Report Released Date/Time: Sep 05, 2024 12:23 PM Reporting Lab: [address] [address] Performing Lab: [address] [address] GLUCOSE-HAND MONITOR 115 mg/dL H Sep 05, 2024 06:26 AM [facility] GLUCOSE-HAND MONITOR CAPILLARY Specime n Type: CAPILLARY Comment: AAMIR Correction Dose Test performed by: [id number] Meter #: [id number] Ordering Provider: FRANCK TURNER Report Released Date/Time: Sep 05, 2024 06:43 AM Reporting Lab: [address] [address] Performing Lab: [address] [address] GLUCOSE-HAND MONITOR 111 mg/dL H Sep 04, 2024 08:59 PM [facility] GLUCOSE-HAND MONITOR CAPILLARY Specime n Type: CAPILLARY Comment: AAMIR RN notified Test performed by: [id number] Meter #: [id number] Ordering Provider: FRANCK TURNER Report Released Date/Time: Sep 04, 2024 09:36 PM Reporting Lab: [address] [address] Performing Lab: [address] [address] GLUCOSE-HAND MONITOR 123 mg/dL H Sep 04, 2024 04:41 PM [facility] GLUCOSE-HAND MONITOR CAPILLARY Specime n Type: CAPILLARY Comment: AAMIR RN notified Test performed by: [id number] Meter #: [id number] Ordering Provider: FRANCK TURNER Report Released Date/Time: Sep 04, 2024 05:03 PM Reporting Lab: [address] [address] Performing Lab: [address] [address] GLUCOSE-HAND MONITOR 118 mg/dL H Sep 04, 2024 12:36 PM [facility] GLUCOSE-HAND MONITOR CAPILLARY Specime n Type: CAPILLARY Comment: AAMIR RN notified Test performed by: [id number] Meter #: [id number] Ordering Provider: FRANCK TURNER Report Released Date/Time: Sep 04, 2024 12:53 PM Reporting Lab: [address] [address] Performing Lab: [place] [address] GLUCOSE-HAND MONITOR 129 mg/dL H 71-99 Sep 04, 2024 12:03 PM [facility] RESPIRATORY VIRUS PANEL (BIOFIRE) NASOPHARYN X Specimen Type: NASOPHARYNX Comment: ~For Test: RESPIRATORY VIRUS PANEL (BIOFIRE) ~ORDER READ BACK TO: FRANCK TURNER 09/04/24@11:30 Ordering Provider: FRANCK TURNER Report Released Date/Time: Sep 04, 2024 11:33 AM Reporting Lab: [place] [id number] Performing Lab: [place] [phone] ADENOVIRUS (BIOFIRE) Not Detected -Not D etected [...] -Not Detected Sep 04, 2024 06:55 AM [facility] MAGNESIUM PLASMA Specimen Type: PLASM [...] 03, 2024 11:10 AM Reporting Lab: [facility] [address] [facility] [address] Performing Lab: [place] [id number] [facility] [address] MAGNESIUM 1.8 mg/dL 1.6-2.6 Sep 04, 2024 06:55 AM [facility] PANEL 1 PLASMA Specimen Type: [...] Sep 03, 2024 11:10 AM Reporting Lab: [address] [address] Performing Lab: [address] CREATININE 0.75 mg/dL 0.72-1.25 UREA NITROGEN 13 mg/dL 9-25 GLUCOSE 105 mg/dL H 74-100 SODIUM 128 mmol/L L 136-145 POTASSIUM 3.9 mmol/L 3.5-5.1 CHLORIDE 99 mmol/L 98-107 CO2 21 mmol/L L 22-29 CALCIUM 8.0 mg/dL L 8.4-10.2 ANION GAP 8 meq/L 3-19 eGFR (CKD-EPI) >90 Sep 04, 2024 06:02 AM [facility] GLUCOSE-HAND MONITOR CAPILLARY Specime n Type: CAPILLARY Comment: Test performed by: [id number] Meter #: [id number] Ordering Provider: FRANCK TURNER Report Released Date/Time: Sep 04, 2024 06:28 AM Reporting Lab: [address] Performing Lab: [address] GLUCOSE-HAND MONITOR 114 mg/dL H 71-99 Sep 03, 2024 05:19 PM [facility] GLUCOSE-HAND MONITOR CAPILLARY Specime n Type: CAPILLARY Comment: Test performed by: [id number] Meter #: [id number] Ordering Provider: FRANCK TURNER Report Released Date/Time: Sep 03, 2024 05:37 PM Reporting Lab: [address] Performing Lab: [address] [address] GLUCOSE-HAND MONITOR 124 mg/dL H 71-99 Sep 03, 2024 04:41 PM [facility] GLUCOSE-HAND MONITOR CAPILLARY Specime n Type: CAPILLARY Comment: Test performed by: [id number] Meter #: [id number] Ordering Provider: FRANCK TURNER Report Released Date/Time: Sep 03, 2024 06:09 PM Reporting Lab: [address] [address] Performing Lab: [address] [address] GLUCOSE-HAND MONITOR 112 mg/dL H 71-99 Sep 03, 2024 01:35 PM [facility] URINE LYTES URINE Specimen Type : URINE Comment: ~Altered mental status with no identifiable cause Ordering Provider: FRANCK TURNER Report Released Date/Time: Sep 02, 2024 04:44 PM Reporting Lab: [address] [address] Performing Lab: [address] [address] SODIUM 130 mmol/L POTASSIUM 47.6 mmol/L CHLORIDE 137 mmol/L Sep 03, 2024 01:35 PM [facility] CREATININE URINE Specimen Type: URINE Comment: ~Altered mental status with no identifiable cause Ordering Provider: FRANCK TURNER Report Released Date/Time: Sep 02, 2024 04:44 PM Reporting Lab: [address] [address] Performing Lab: [address] [address] CREATININE 150.9 mg/dL Sep 03, 2024 01:35 PM [facility] UREA NITROGEN URINE Specimen Type : URINE Comment: ~Altered mental status with no identifiable cause Ordering Provider: FRANCK TURNER Report Released Date/Time: Sep 02, 2024 04:44 PM Reporting Lab: [address] [address] Performing Lab: [address] [address] UREA NITROGEN 320 mg/dL Sep 03, 2024 01:35 PM [facility] OSMOLALITY URINE Specimen Type: URINE Comment: ~Altered mental status with no identifiable cause Ordering Provider: FRANCK TURNER Report Released Date/Time: Sep 02, 2024 04:44 PM Reporting Lab: [address] [address] Performing Lab: [address] [address] OSMOLALITY 522 mosm/kg 38-1400 Sep 03, 2024 01:35 PM [facility] URINALYSIS WITH REFLEX TO CULTURE URINE Specimen Type: URINE Comment: ~Altered mental status with no identifiable cause Ordering Provider: FRANCK TURNER Report Released Date/Time: Sep 02, 2024 04:44 PM Reporting Lab: [address] [address] Performing Lab: [address] [address] URINE COLOR Yellow Colorless-Yellow APPEARANCE CLOUDY H [...] H 0-28 Sep 03, 2024 11:58 AM [facility] GLUCOSE-HAND MONITOR CAPILLARY Specime n Type: CAPILLARY Comment: AAMIR RN notified Test performed by: [id number] Meter #: [id number] Ordering Provider: FRANCK TURNER Report Released Date/Time: Sep 03, 2024 12:15 PM Reporting Lab: [address] [address] Performing Lab: [address] [address] GLUCOSE-HAND MONITOR 135 mg/dL H Sep 03, 2024 07:09 AM [facility] GLUCOSE-HAND MONITOR CAPILLARY Specime n Type: CAPILLARY Comment: Test performed by: [id number] Meter #: [id number] Ordering Provider: FRANCK TURNER Report Released Date/Time: Sep 03, 2024 07:26 AM Reporting Lab: [address] [address] Performing Lab: [address] [address] GLUCOSE-HAND MONITOR 120 mg/dL H -Sep 03, 2024 07:05 AM [facility] PANEL 1 PLASMA Specimen Type: [...] 02, 2024 04:29 PM Reporting Lab: [address] [address] Performing Lab: [address] [address] CREATININE 0.82 mg/dL 0.72-1.25 UREA NITROGEN 12 mg/dL 9-25 GLUCOSE 109 mg/dL H 74-100 SODIUM 129 mmol/L L 136-145 POTASSIUM 4.2 mmol/L 3.5-5.1 CHLORIDE 99 mmol/L 98-107 CO2 21 mmol/L L 22-29 CALCIUM 8.1 mg/dL L 8.4-10.2 ANION GAP 9 meq/L 3-19 eGFR (CKD-EPI) 90 Sep 03, 2024 07:05 AM [facility] CBC/PLT BLOOD Specimen Type: BLOOD No comment entered. Ordering Provider: FRANCK TURNER Report Released Date/Time: Sep 02, 2024 04:29 PM Reporting Lab: [address] [address] Performing Lab: [address] [address] WBC 6.9 10*3/uL 5.0-10.0 RBC 3.48 10*6/uL L 4.6-6.2 HGB 9.5 g/dL L 14.0-18.0 HCT 29.1 L 42.0-52.0 MCV 83.6 fL 80.0-94.0 MCH 27.3 pg 27.0-31.0 MCHC 32.6 g/dL 32.0-36.0 PLT 258 10*3/uL 150-450 MPV 10.3 fL 9.0-13.1 RDW 14.8 11.0-16.0 NRBC 0.0 0.0-0.0 Sep 03, 2024 07:05 AM [facility] MAGNESIUM PLASMA Specimen Type: PLASM [...] 02, 2024 04:29 PM Reporting Lab: [address] [address] Performing Lab: [address] [address] MAGNESIUM 1.7 mg/dL 1.6-2.6 Sep 03, 2024 07:05 AM [facility] GLYCOHEMOGLOBIN BLOOD Specimen Type: BLOOD Comment: Prediabetes: 5.7%-6.4% Diabetes: >= 6.5% [place]-DoD guidelines for A1c interpretation: Glycemic control targets [...] 8.73 and 9.27. Ref: https://ngsp.org/CAPdata.asp. The in-house [employer] Van[employer] D-100 analyzer has a historical CV <= 2%. Contact the laboratory for further performance characteristics of this assay. Ordering Provider: FRANCK TURNER Report Released Date/Time: Sep 02, 2024 04:29 PM Reporting Lab: [address] [address] Performing Lab: [place] [phone] GLYCOHEMOGLOBIN 5.6 4.4-5.6 Sep 03, 2024 07:05 AM [facility] OSMOLALITY SERUM Specimen Type: SERUM No comment entered. Ordering Provider: FRANCK TURNER Report Released Date/Time: Sep 02, 2024 04:44 PM Reporting Lab: [address] [address] Performing Lab: [address] [address] OSMOLALITY 271 mosm/kg L 280-300 Sep 02, 2024 08:15 PM [facility] GLUCOSE-HAND MONITOR CAPILLARY Specime n Type: CAPILLARY Comment: AAMIR DEXTER notified Test performed by: [id number] Meter #: [id number] Ordering Provider: FRANCK TURNER Report Released Date/Time: Sep 02, 2024 08:57 PM Reporting Lab: [address] [address] Performing Lab: [address] [address] GLUCOSE-HAND MONITOR 126 mg/dL H 71-99 Sep 02, 2024 06:10 PM [facility] MRSA SURVL NARES DNA NARES [...] 02, 2024 05:12 PM Reporting Lab: [address] [address] Performing Lab: [address] [address] MRSA SURVL NARES DNA Negative Negative Sep 02, 2024 05:36 PM [facility] GLUCOSE-HAND MONITOR CAPILLARY Specime n Type: CAPILLARY Comment: Test performed by: [id number] Meter #: [id number] Ordering Provider: FRANCK TURNER Report Released Date/Time: Sep 02, 2024 05:53 PM Reporting Lab: [address] [address] Performing Lab: [address] [address] GLUCOSE-HAND MONITOR 127 mg/dL H 71-99 Aug 29, 2024 10:04 PM [facility] URINALYSIS WITH REFLEX TO CULTURE URINE Specimen Type: URINE Comment: ~For Test: URINALYSIS WITH REFLEX TO CULTURE ~REORDER Ordering Provider: FELISA COLE Report Released Date/Time: Aug 29, 2024 09:36 PM Reporting Lab: [address] [address] Performing Lab: [address] [address] URINE COLOR Yellow Colorless-Yellow APPEARANCE Clear Clear [...] 29, 2024 07:55 PM Reporting Lab: [address] [address] Performing Lab: [address] [address] HIGH SENSITIVITY TROPONIN I 7 4-35 Aug 29, 2024 08:32 PM [facility] CBC/PLT BLOOD Specimen Type: BLOOD No comment entered. Ordering Provider: FELISA COLE Report Released Date/Time: Aug 29, 2024 07:55 PM Reporting Lab: [address] [address] Performing Lab: [address] [address] WBC 11.2 10*3/uL H 5.0-10.0 RBC 3.97 10*6/uL L 4.6-6.2 HGB 10.9 g/dL L 14.0-18.0 HCT 33.5 L 42.0-52.0 MCV 84.4 fL 80.0-94.0 MCH 27.5 pg 27.0-31.0 MCHC 32.5 g/dL 32.0-36.0 PLT 230 10*3/uL 150-450 MPV 10.2 fL 9.0-13.1 RDW 14.6 11.0-16.0 NRBC 0.0 0.0-0.0 Aug 29, 2024 08:32 PM [facility] PANEL 5 PLASMA Specimen Type: PLASM A [...] 29, 2024 07:55 PM Reporting Lab: [address] [address] Performing Lab: [address] [address] CREATININE 0.85 mg/dL 0.72-1.25 UREA NITROGEN 15 [...] 18 /min 93 % 0 [place] [facility] Sep 06, 2024 04:27 PM 97.5 F 67 /min 148/67 mm[Hg] 20 /min 93 % 0 [place] [facility] Sep 06, 2024 03:37 PM 0 [place] [facility] Sep 06, 2024 11:30 AM 0 [place] Sep 06, 2024 10:22 AM 97.4 F 71 /min 102/49 mm[Hg] 18 /min 93 % 0 [place] Advance Directives: All historical and current Section Date Range: From patient's date of to the date document was created. This section includes ALL of a patient's completed or amended [place] Advance and Rescinded Directives. The entries below indicate that a directive exists for the patient, but an actual copy is not included with this document. The data comes from all [place] facilities. Date Advance Directives Provider Source Mar 08, 2024 ADVANCE DIRECTIVE DISCUSSION [facility] Radiology Reports: +/- 30 days [...] the Encounter. The data comes from all [place] treatment facilities. Date/Time Radiology Report Provider Source Sep 06, 2024 01:40 PM MRI BRAIN W & W/O: LUIS MANUEL PERDOMO [id number] -1945 M Exm Date: SEP 06, 2024@13:40 Req Phys: FRANCK TURNER Pat Loc: 5-MED/TEL/09-06-2024@19:09 Img Loc: [facility] Service: [place] [address] (Case [id number] COMPLETE) MRI BRAIN W & W/O (MRI Detailed) CPT:69092 Contrast Media : Gadolinium Reason for Study: SEE CLINICAL HISTORY Pharmaceutical: GADOTERIDOL 279.3MG/ML 20ML INJ, 19ml Clinical History: MRI Screening (Required): IMPLANTED DEVICE DOCUMENTATION IMPLANTED DEVICE DOCUMENTATION NOT FOUND Does the have any Cardiac Implants? None Does the have any implanted stimulators? None Does the [place] have cochlear implants? No Does the have [...] 06, 2024 Date Verified: SEP 06, 2024 Phd Intern E-Sig: Report: MRI brain without and with [...] Staff: ARCENIO LEYVA, Staff Radiologist Verified by puller over for ARCENIO LEYVA /ARCENIO AVILA[facility] Sep 06, 2024 01:40 PM MRI C SPINE W & W/ O CONTRAST(FURTHER SEQUENCES): LUIS MANUEL PERDOMO [id number] -1945 M Exm Date: SEP 06, 2024@13:40 Req Phys: FRANCK TURNERSav Pat Loc: 5-MED/TEL/09-07-2024@06:42 Img Loc: [facility] Service: [place] [address] (Case [id number] COMPLETE) MRI C SPINE W & W/O CONTRAST(FURT(MRI Detailed) CPT:47841 Contrast Media : Gadolinium Reason for Study: [...] the have cochlear implants? No Does the [place] have Cerebral aneurysm clip(s)? I don't know [...] 07, 2024 Date Verified: SEP 07, 2024 Phd Intern E-Sig: Report: EXAMINATION: MRI OF THE CERVICAL [...] Interpreting Staff: HUANG TAI, Radiologist Verified by puller over for HUANG TAI /HUANG WHEATLEY-[facility] Sep 03, 2024 10:45 AM CHEST SINGLE(1) EW: LUIS MANUEL PERDOMO [id number] -1945 M Exm Date: SEP 03, 2024@10:45 Req Phys: FRANCK TURNER Pat Loc: 5-MED/TEL/09-03-2024@10:56 Img Loc: [facility] RADIOLOGY Service: [place] [address] (Case [id number] COMPLETE)CHEST SINGLE(1) VIEW (RAD Detailed) CPT:87425 Proc Modifiers : PORTABLE EXAM Reason for Study: Eval volume status Clinical History: Report Status: Verified Date Reported: SEP 03, 2024 Date Verified: SEP 03, 2024 Phd Intern E-Sig: Report: EXAMINATION: SINGLE VIEW CHEST CLINICAL [...] Interpreting Staff: HUANG TAI, Radiologist Verified by puller over for HUANG TAI /HUANG WHEATLEY-[facility] Aug 29, 2024 08:[address] HEAD W/O CONT: LUIS MANUEL PERDOMO FABIAN [id number] -1945 M Exm Date: AUG 29, 2024@20:28 Req Phys: FEILSA COLE Loc: ED/4P-12A (Req'g Loc) Img Loc: CT SCAN Service: Unknown [place] [id number] (Case [id number] COMPLETE) CT HEAD W/O CONT (CT Detailed) CPT:72575 Reason for Study: SEE CLINICAL HISTORY Clinical History: REASON FOR SEND OUT: ATTENDING PHYSICIAN NAME: New transient neurological s/s - suspected TIA HISTORY/REASON FOR EXAM: confusion Report Status: Verified Date Reported: AUG 29, 2024 Date Verified: AUG 29, 2024 Phd Intern E-Sig: Report: HISTORY confusion COMPARISON No prior [...] Staff: ABDIRAHMAN CROW, Staff Physician Verified by puller over for ABDIRAHMAN CROW /GUERITA CROW,ABDIRAHMAN [facility] Pathology Reports: +/- 30 days of [...] the Encounter. The data comes from all [place] treatment facilities. Date/Time Pathology Report Provider Source Sep 03, 2024 01:35 PM LR MICROBIOLOGY RE PORT: Reporting Lab: [facility] [CLIA# [id number]] [address] [place] [id number] Accession [UID]: [id number] [[id number]] Received: Sep 03, 2024@14:02 Collection sample: URINE, [...] [facility] [CLIA# [id number]] [address] [place] [id number] [facility] Sep 02, 2024 06:00 PM LR MICROBIOLOGY RE PORT: Reporting Lab: [facility] [CLIA# [id number]] [address] [place] [address] Accession [UID]: [id number] [[id number]] Received: Sep 02, 2024@18:07 Collection sample: BLD CULTURE BOTTLES Collection date: Sep 02, 2024 18:00 Site/Specimen: BLOOD Provider: FRANCK TURNER Comment on specimen: L HAND Test(s) ordered: CULTURE, BLOOD................ completed: Sep 08, 2024 * BACTERIOLOGY FINAL REPORT => Sep 08, 2024 08:25 TECH CODE: [id number] Bacteriology Remark(s): Blood culture status=NO GROWTH (unless notified otherwise) 09/03/2024 AEROBIC: NO GROWTH ANAEROBIC: NO GROWTH =--=--=--=--=--=--=--=--=--=-- =--=--=--=--=--=--=--=--=--=-- =--=--=--=--=--=-- Performing Laboratory: Bacteriology Report Performed By: [facility] [CLIA# [id number]] [address] [place] [address] MAGDY CALABRESE [facility] Aug 29, 2024 10:18 PM LR MICROBIOLOGY RE PORT: Reporting Lab: [facility] [CLIA# [id number]] [address] [place] [address] Accession [UID]: [id number] [[id number]] Received: Aug 29, 2024@22:18 Collection sample: URINE, CLEAN CATCH Collection date: Aug 29, 2024 22:18 Site/Specimen: URINE Provider: FELISA COLE Test(s) ordered: CULTURE, URINE................ completed: Aug 31, 2024 09:51 * BACTERIOLOGY FINAL REPORT => Aug 31, 2024 09:51 TECH CODE: [id number] Bacteriology Remark(s): NO GROWTH 08/30/2024 <10,000 CFU/ML. 08/31/2024 =--=--=--=--=--=--=--=--=--=-- =--=--=--=--=--=--=--=--=--=-- =--=--=--=--=--=-- Performing Laboratory: Bacteriology Report Performed By: [facility] [CLIA# [id number]] [address] [place] [address] MAGDY [facility]ABRESE[facility]
--- OUTSIDE RECORDS SUMMARY | 2024-09-06 11:14 | XMS_ITS | Encounter Summary ---
Author Name [facility] (OR) Organization [facility] ([place]) Address [address] [place] [address] Care Team Providers Care Fitness Services Manager Name Role Phone YULISSA HENDERSON Primary [...] PLAN F Mar 24, 2014 PLAN F [id number] LUIS MANUEL PERDOMO PATIENT BS [place] [employer] PREFERRED PROVIDER ORGANIZAT ION (PPO) [facility] SLE Sep 21, 2012 [id number] [phone] LUIS MANUEL PERDOMO PATIENT [employer] ([id number]) PRESCRIPT ION WL3A Sep 21, 2012 [id number] LUIS MANUEL PERDOMO PATIENT MEDICARE (WNR) MEDICARE (M) PART B Sep 21, 2012 PART B [id number] NOEMI PERDOMO PATIENT MEDICARE (WNR) MEDICARE (M) PART A Jan 22, 2011 PART A [id number] NOEMI PERDOMO PATIENT MEDICARE PART D (WNR) MEDICARE (M) PART D Mar 24, 2014 PART D [id number] LUIS MANUEL PERDOMO PATIENT Selected Encounter This section includes the information on record at OR for the Encounter. Date/Time Encounter Type Encounter Description Reason Provider Source Sep 06, 2024 03:14 PM CASE MANAGEMENT SOCIAL WORK SERVICE ICD-10-CM Z75.8 Oth prob related to medical facilities and ot health care AMANDA FIERRO IHE Encounter Template Text not used by OR Assessments - Encounter Diagnoses This section includes the primary and secondary diagnoses documented for the Encounter. Date/Time Primary/Secondary Diagnosis Diagnosis Name Provider Source Sep 06, 2024 03:32 PM PRIMARY Oth prob related to medical facilities and ot health care [facility] Plan of Treatment: Future Appointments (+ 6 months) and Future Tests (+/- 45 days) The Plan of Treatment section includes future care activities for the patient from all [facility] This section includes future appointments and future orders which are active, pending or scheduled. Future Appointments This section includes appointments that were scheduled to occur 6 months from the date of the Encounter, up to a maximum of 20 appointments. The data comes from all OR treatment [facility]. Appointment Date/Time Appointment Type Appointme nt Facility Name Sep 13, 2024 08:00 AM [facility] NONE [facility] Sep 30, 2024 01:30 PM AMBULATORY - SURGERY [facility] [facility] Active, Pending, and Scheduled Orders [...] The data comes from all OR treatment [facility]. Test Date/Time Test Type Test Details Facility Name Sep 13, 2024 01:33 PM Consult Order [facility] [place] [facility] Cons Cook Fishing Vessel's Choice [facility] Lab Results: +/- 30 days [...] Type Comment Sep 09, 2024 12:16 PM [facility] GLUCOSE-HAND MONITOR CAPILLARY Specimen Type: CAPILLARY Comment: Test performed by: [id number] Meter #: [id number] Ordering Provider: FRANCK TURNER Report Released Date/Time: Sep 09, 2024 12:33 PM Reporting Lab: [address] [address] Performing Lab: [address] [address] GLUCOSE-HAND MONITOR 116 mg/dL H 71-99 Sep 09, 2024 06:07 AM [facility] GLUCOSE-HAND MONITOR CAPILLARY Specime n Type: CAPILLARY Comment: Test performed by: [id number] Meter #: [id number] Ordering Provider: FRANCK TURNER Report Released Date/Time: Sep 09, 2024 08:17 AM Reporting Lab: [address] [address] Performing Lab: [address] [address] GLUCOSE-HAND MONITOR 112 mg/dL H 71-99 Sep 08, 2024 09:13 PM [facility] GLUCOSE-HAND MONITOR CAPILLARY Specime n Type: CAPILLARY Comment: Test performed by: [id number] Meter #: [id number] Ordering Provider: FRANCK TURNER Report Released Date/Time: Sep 08, 2024 09:31 PM Reporting Lab: [address] [address] Performing Lab: [address] [address] GLUCOSE-HAND MONITOR 107 mg/dL H 71-99 Sep 08, 2024 03:49 PM [facility] GLUCOSE-HAND MONITOR CAPILLARY Specime n Type: CAPILLARY Comment: AAMIR RN notified Test performed by: [id number] Meter #: [id number] Ordering Provider: FRANCK TURNER Report Released Date/Time: Sep 08, 2024 04:33 PM Reporting Lab: [address] [address] Performing Lab: [address] [address] GLUCOSE-HAND MONITOR 162 mg/dL H Sep 08, 2024 11:43 AM [facility] GLUCOSE-HAND MONITOR CAPILLARY Specime n Type: CAPILLARY Comment: AAMIR RN notified Test performed by: [id number] Meter #: [id number] Ordering Provider: FRANCK TURNER Report Released Date/Time: Sep 08, 2024 12:03 PM Reporting Lab: [address] [address] Performing Lab: [address] GLUCOSE-HAND MONITOR 133 mg/dL H Sep 08, 2024 06:13 AM [facility] GLUCOSE-HAND MONITOR CAPILLARY Specime n Type: CAPILLARY Comment: Test performed by: [id number] Meter #: [id number] Ordering Provider: FRANCK TURNER Report Released Date/Time: Sep 08, 2024 06:46 AM Reporting Lab: [address] [address] Performing Lab: [address] [address] GLUCOSE-HAND MONITOR 104 mg/dL H Sep 07, 2024 07:59 PM [facility] GLUCOSE-HAND MONITOR CAPILLARY Specime n Type: CAPILLARY Comment: Test performed by: [id number] Meter #: [id number] Ordering Provider: FRANCK TURNER Report Released Date/Time: Sep 07, 2024 09:05 PM Reporting Lab: [address] [address] Performing Lab: [address] [address] GLUCOSE-HAND MONITOR 107 mg/dL H Sep 07, 2024 04:39 PM [facility] GLUCOSE-HAND MONITOR CAPILLARY Specime n Type: CAPILLARY Comment: Test performed by: [id number] Meter #: [id number] Ordering Provider: FRANCK TURNER Report Released Date/Time: Sep 07, 2024 05:09 PM Reporting Lab: [address] [address] Performing Lab: [address] [address] GLUCOSE-HAND MONITOR 105 mg/dL H -Sep 07, 2024 11:41 AM [facility] GLUCOSE-HAND MONITOR CAPILLARY Specime n Type: CAPILLARY Comment: Test performed by: [id number] Meter #: [id number] Ordering Provider: FRANCK TURNER Report Released Date/Time: Sep 07, 2024 12:41 PM Reporting Lab: [address] [address] Performing Lab: [address] [address] GLUCOSE-HAND MONITOR 144 mg/dL H -Sep 07, 2024 05:56 AM [facility] GLUCOSE-HAND MONITOR CAPILLARY Specime n Type: CAPILLARY Comment: Test performed by: [id number] Meter #: [id number] Ordering Provider: FRANCK TURNER Report Released Date/Time: Sep 07, 2024 06:31 AM Reporting Lab: [address] [address] Performing Lab: [address] [address] GLUCOSE-HAND MONITOR 96 mg/dL -Sep 06, 2024 08:10 PM [facility] GLUCOSE-HAND MONITOR CAPILLARY Specime n Type: CAPILLARY Comment: Test performed by: [id number] Meter #: [id number] Ordering Provider: FRANCK TURNER Report Released Date/Time: Sep 06, 2024 08:52 PM Reporting Lab: [address] [address] Performing Lab: [address] [address] GLUCOSE-HAND MONITOR 124 mg/dL H -Sep 06, 2024 04:27 PM [facility] GLUCOSE-HAND MONITOR CAPILLARY Specime n Type: CAPILLARY Comment: Test performed by: [id number] Meter #: [id number] Ordering Provider: FRANCK TURNER Report Released Date/Time: Sep 06, 2024 05:15 PM Reporting Lab: [place] [address] Performing Lab: [address] [address] GLUCOSE-HAND MONITOR 107 mg/dL H -Sep 06, 2024 12:12 PM [facility] GLUCOSE-HAND MONITOR CAPILLARY Specime n Type: CAPILLARY Comment: Test performed by: [id number] Meter #: [id number] Ordering Provider: FRANCK TURNER Report Released Date/Time: Sep 06, 2024 12:29 PM Reporting Lab: [address] [address] Performing Lab: [address] [address] GLUCOSE-HAND MONITOR 181 mg/dL H Sep 06, 2024 06:13 AM [facility] GLUCOSE-HAND MONITOR CAPILLARY Specime n Type: CAPILLARY Comment: Test performed by: [id number] Meter #: [id number] Ordering Provider: FRANCK TURNER Report Released Date/Time: Sep 06, 2024 06:36 AM Reporting Lab: [address] [address] Performing Lab: [address] [address] GLUCOSE-HAND MONITOR 102 mg/dL H Sep 05, 2024 08:47 PM [facility] GLUCOSE-HAND MONITOR CAPILLARY Specime n Type: CAPILLARY Comment: Test performed by: [id number] Meter #: [id number] Ordering Provider: FRANCK TURNER Report Released Date/Time: Sep 06, 2024 02:13 AM Reporting Lab: [address] [address] Performing Lab: [address] [address] GLUCOSE-HAND MONITOR 103 mg/dL H Sep 05, 2024 04:40 PM [facility] GLUCOSE-HAND MONITOR CAPILLARY Specime n Type: CAPILLARY Comment: AAMIR RN notified Test performed by: [id number] Meter #: [id number] Ordering Provider: FRANCK TURNER Report Released Date/Time: Sep 05, 2024 05:11 PM Reporting Lab: [address] [address] Performing Lab: [address] [address] GLUCOSE-HAND MONITOR 113 mg/dL H Sep 05, 2024 12:06 PM [facility] GLUCOSE-HAND MONITOR CAPILLARY Specime n Type: CAPILLARY Comment: Test performed by: [id number] Meter #: [id number] Ordering Provider: FRANCK TURNER Report Released Date/Time: Sep 05, 2024 12:23 PM Reporting Lab: [address] [address] Performing Lab: [address] [address] GLUCOSE-HAND MONITOR 115 mg/dL H Sep 05, 2024 06:26 AM [facility] GLUCOSE-HAND MONITOR CAPILLARY Specime n Type: CAPILLARY Comment: AAMIR Correction Dose Test performed by: [id number] Meter #: [id number] Ordering Provider: FRANCK TURNER Report Released Date/Time: Sep 05, 2024 06:43 AM Reporting Lab: [address] [address] Performing Lab: [address] [address] GLUCOSE-HAND MONITOR 111 mg/dL H Sep 04, 2024 08:59 PM [facility] GLUCOSE-HAND MONITOR CAPILLARY Specime n Type: CAPILLARY Comment: AAMIR RN notified Test performed by: [id number] Meter #: [id number] Ordering Provider: FRANCK TURNER Report Released Date/Time: Sep 04, 2024 09:36 PM Reporting Lab: [address] [address] Performing Lab: [address] [address] GLUCOSE-HAND MONITOR 123 mg/dL H Sep 04, 2024 04:41 PM [facility] GLUCOSE-HAND MONITOR CAPILLARY Specime n Type: CAPILLARY Comment: AAMIR RN notified Test performed by: [id number] Meter #: [id number] Ordering Provider: FRANCK TURNER Report Released Date/Time: Sep 04, 2024 05:03 PM Reporting Lab: [place] [phone] Performing Lab: [place] [address] GLUCOSE-HAND MONITOR 118 mg/dL H Sep 04, 2024 12:36 PM [facility] GLUCOSE-HAND MONITOR CAPILLARY Specime n Type: CAPILLARY Comment: AAMIR RN notified Test performed by: [id number] Meter #: [id number] Ordering Provider: FRANCK TURNER Report Released Date/Time: Sep 04, 2024 12:53 PM Reporting Lab: [place] [phone] Performing Lab: [place] [address] GLUCOSE-HAND MONITOR 129 mg/dL H Sep 04, 2024 12:03 PM [facility] RESPIRATORY VIRUS PANEL (BIOFIRE) NASOPHARYN X Specimen Type: NASOPHARYNX Comment: ~For Test: RESPIRATORY VIRUS PANEL (BIOFIRE) ~ORDER READ BACK TO: FRANCK TURNER 09/04/24@11:30 Ordering Provider: FRANCK TURNER Report Released Date/Time: Sep 04, 2024 11:33 AM Reporting Lab: [place] [address] Performing Lab: [place] [phone] ADENOVIRUS (BIOFIRE) Not Detected -Not D etected [...] Detected Sep 04, 2024 06:55 AM [facility] MAGNESIUM PLASMA Specimen Type: PLASM [...] 03, 2024 11:10 AM Reporting Lab: [facility] [address] [facility] [address] Performing Lab: [address] [address] MAGNESIUM 1.8 mg/dL 1.6-2.6 Sep 04, 2024 06:55 AM [facility] PANEL 1 PLASMA Specimen Type: PLASM [...] Sep 03, 2024 11:10 AM Reporting Lab: [address] [address] Performing Lab: [place] [phone] CREATININE 0.75 mg/dL 0.72-1.25 UREA NITROGEN 13 mg/dL 9-25 GLUCOSE 105 mg/dL H 74-100 SODIUM 128 mmol/L L 136-145 POTASSIUM 3.9 mmol/L 3.5-5.1 CHLORIDE 99 mmol/L 98-107 CO2 21 mmol/L L 22-29 CALCIUM 8.0 mg/dL L 8.4-10.2 ANION GAP 8 meq/L 3-19 eGFR (CKD-EPI) >90 Sep 04, 2024 06:02 AM [facility] GLUCOSE-HAND MONITOR CAPILLARY Specime n Type: CAPILLARY Comment: Test performed by: [id number] Meter #: [id number] Ordering Provider: FRANCK TURNER Report Released Date/Time: Sep 04, 2024 06:28 AM Reporting Lab: [address] [address] Performing Lab: [address] [address] GLUCOSE-HAND MONITOR 114 mg/dL H -99 Sep 03, 2024 05:19 PM [facility] GLUCOSE-HAND MONITOR CAPILLARY Specime n Type: CAPILLARY Comment: Test performed by: [id number] Meter #: [id number] Ordering Provider: FRANCK TURNER Report Released Date/Time: Sep 03, 2024 05:37 PM Reporting Lab: [address] [address] Performing Lab: [address] [address] GLUCOSE-HAND MONITOR 124 mg/dL H 71-99 Sep 03, 2024 04:41 PM [facility] GLUCOSE-HAND MONITOR CAPILLARY Specime n Type: CAPILLARY Comment: Test performed by: [id number] Meter #: [id number] Ordering Provider: FRANCK TURNER Report Released Date/Time: Sep 03, 2024 06:09 PM Reporting Lab: [address] [address] Performing Lab: [address] [address] GLUCOSE-HAND MONITOR 112 mg/dL H 71-99 Sep 03, 2024 01:35 PM [facility] URINE LYTES URINE Specimen Type : URINE Comment: ~Altered mental status with no identifiable cause Ordering Provider: FRANCK TURNER Report Released Date/Time: Sep 02, 2024 04:44 PM Reporting Lab: [address] [address] Performing Lab: [address] [address] SODIUM 130 mmol/L POTASSIUM 47.6 mmol/L CHLORIDE 137 mmol/L Sep 03, 2024 01:35 PM [facility] CREATININE URINE Specimen Type: URINE Comment: ~Altered mental status with no identifiable cause Ordering Provider: FRANCK TURNER Report Released Date/Time: Sep 02, 2024 04:44 PM Reporting Lab: [address] [address] Performing Lab: [address] [address] CREATININE 150.9 mg/dL Sep 03, 2024 01:35 PM [facility] OSMOLALITY URINE Specimen Type: URINE Comment: ~Altered mental status with no identifiable cause Ordering Provider: FRANCK TURNER Report Released Date/Time: Sep 02, 2024 04:44 PM Reporting Lab: [address] [address] Performing Lab: [address] [address] OSMOLALITY 522 mosm/kg 38-1400 Sep 03, 2024 01:35 PM [facility] UREA NITROGEN URINE Specimen Type : URINE Comment: ~Altered mental status with no identifiable cause Ordering Provider: FRANCK TURNER Report Released Date/Time: Sep 02, 2024 04:44 PM Reporting Lab: [address] [address] Performing Lab: [address] [address] UREA NITROGEN 320 mg/dL Sep 03, 2024 01:35 PM [facility] URINALYSIS WITH REFLEX TO CULTURE URINE Specimen Type: URINE Comment: ~Altered mental status with no identifiable cause Ordering Provider: FRANCK TURNER Report Released Date/Time: Sep 02, 2024 04:44 PM Reporting Lab: [address] [address] Performing Lab: [address] [address] URINE COLOR Yellow Colorless-Yellow APPEARANCE CLOUDY H [...] 0-28 Sep 03, 2024 11:58 AM [facility] GLUCOSE-HAND MONITOR CAPILLARY Specime n Type: CAPILLARY Comment: AAMIR RN notified Test performed by: [id number] Meter #: [id number] Ordering Provider: FRANCK TURNER Report Released Date/Time: Sep 03, 2024 12:15 PM Reporting Lab: [address] [address] Performing Lab: [address] [address] GLUCOSE-HAND MONITOR 135 mg/dL H 71-99 Sep 03, 2024 07:09 AM [facility] GLUCOSE-HAND MONITOR CAPILLARY Specime n Type: CAPILLARY Comment: Test performed by: [id number] Meter #: [id number] Ordering Provider: FRANCK TURNER Report Released Date/Time: Sep 03, 2024 07:26 AM Reporting Lab: [address] [address] Performing Lab: [address] [address] GLUCOSE-HAND MONITOR 120 mg/dL H 71-99 Sep 03, 2024 07:05 AM [facility] PANEL 1 PLASMA Specimen Type: PLASM [...] Sep 02, 2024 04:29 PM Reporting Lab: [address] [address] Performing Lab: [address] [address] CREATININE 0.82 mg/dL 0.72-1.25 UREA NITROGEN 12 mg/dL 9-25 GLUCOSE 109 mg/dL H 74-100 SODIUM 129 mmol/L L 136-145 POTASSIUM 4.2 mmol/L 3.5-5.1 CHLORIDE 99 mmol/L 98-107 CO2 21 mmol/L L 22-29 CALCIUM 8.1 mg/dL L 8.4-10.2 ANION GAP 9 meq/L 3-19 eGFR (CKD-EPI) 90 Sep 03, 2024 07:05 AM [facility] CBC/PLT BLOOD Specimen Type: BLOOD No comment entered. Ordering Provider: FRANCK TURNER Report Released Date/Time: Sep 02, 2024 04:29 PM Reporting Lab: [address] [address] Performing Lab: [address] [address] WBC 6.9 10*3/uL 5.0-10.0 RBC 3.48 10*6/uL L 4.6-6.2 HGB 9.5 g/dL L 14.0-18.0 HCT 29.1 L 42.0-52.0 MCV 83.6 fL 80.0-94.0 MCH 27.3 pg 27.0-31.0 MCHC 32.6 g/dL 32.0-36.0 PLT 258 10*3/uL 150-450 MPV 10.3 fL 9.0-13.1 RDW 14.8 11.0-16.0 NRBC 0.0 0.0-0.0 Sep 03, 2024 07:05 AM [facility] MAGNESIUM PLASMA Specimen Type: PLASM A [...] Sep 02, 2024 04:29 PM Reporting Lab: [address] [address] Performing Lab: [address] [address] MAGNESIUM 1.7 mg/dL 1.6-2.6 Sep 03, 2024 07:05 AM [facility] GLYCOHEMOGLOBIN BLOOD Specimen Type: BLOOD Comment: Prediabetes: 5.7%-6.4% Diabetes: >= 6.5% [facility] guidelines for A1c interpretation: Glycemic control targets [...] 8.73 and 9.27. Ref: https://ngsp.org/CAPdata.asp. The in-house [employer] D-100 analyzer has a historical CV <= 2%. Contact the laboratory for further performance characteristics of this assay. Ordering Provider: FRANCK TURNER Report Released Date/Time: Sep 02, 2024 04:29 PM Reporting Lab: [place] [phone] Performing Lab: [address] [address] GLYCOHEMOGLOBIN 5.6 4.4-5.6 Sep 03, 2024 07:05 AM [facility] OSMOLALITY SERUM Specimen Type: SERUM No comment entered. Ordering Provider: FRANCK TURNER Report Released Date/Time: Sep 02, 2024 04:44 PM Reporting Lab: [address] [address] Performing Lab: [address] [address] OSMOLALITY 271 mosm/kg L 280-300 Sep 02, 2024 08:15 PM [facility] GLUCOSE-HAND MONITOR CAPILLARY Specime n Type: CAPILLARY Comment: AAMIR DEXTER notified Test performed by: [id number] Meter #: [id number] Ordering Provider: FRANCK TURNER Report Released Date/Time: Sep 02, 2024 08:57 PM Reporting Lab: [address] [address] Performing Lab: [address] [address] GLUCOSE-HAND MONITOR 126 mg/dL H 71-99 Sep 02, 2024 06:10 PM [facility] MRSA SURVL NARES DNA NARES Specime [...] Sep 02, 2024 05:12 PM Reporting Lab: [place] [phone] Performing Lab: [place] [phone] MRSA SURVL NARES DNA Negative Negative Sep 02, 2024 05:36 PM [facility] GLUCOSE-HAND MONITOR CAPILLARY Specime n Type: CAPILLARY Comment: Test performed by: [id number] Meter #: [id number] Ordering Provider: FRANCK TURNER Report Released Date/Time: Sep 02, 2024 05:53 PM Reporting Lab: [address] [address] Performing Lab: [place] [phone] GLUCOSE-HAND MONITOR 127 mg/dL H 71-99 Aug 29, 2024 10:04 PM [facility] URINALYSIS WITH REFLEX TO CULTURE URINE Specimen Type: URINE Comment: ~For Test: URINALYSIS WITH REFLEX TO CULTURE ~REORDER Ordering Provider: FELISA COLE Report Released Date/Time: Aug 29, 2024 09:36 PM Reporting Lab: [address] [address] Performing Lab: [address] [address] URINE COLOR Yellow Colorless-Yellow APPEARANCE Clear Clear [...] Aug 29, 2024 07:55 PM Reporting Lab: [address] [address] Performing Lab: [address] [address] HIGH SENSITIVITY TROPONIN I 7 4-35 Aug 29, 2024 08:32 PM [facility] CBC/PLT BLOOD Specimen Type: BLOOD No comment entered. Ordering Provider: FELISA COLE Report Released Date/Time: Aug 29, 2024 07:55 PM Reporting Lab: [address] [address] Performing Lab: [facility] [address] [facility] [address] WBC 11.2 10*3/uL H 5.0-10.0 RBC 3.97 [...] Aug 29, 2024 07:55 PM Reporting Lab: [address] [address] Performing Lab: [address] [address] CREATININE 0.85 mg/dL 0.72-1.25 UREA NITROGEN 15 [...] 18 /min 93 % 0 [place] Sep 06, 2024 04:27 PM 97.5 F 67 /min 148/67 mm[Hg] 20 /min 93 % 0 [place] Sep 06, 2024 03:37 PM 0 [place] Sep 06, 2024 11:30 AM 0 [place] Sep 06, 2024 10:22 AM 97.4 F 71 /min 102/49 mm[Hg] 18 /min 93 % 0 [facility] Advance Directives: All historical and [...] 08, 2024 ADVANCE DIRECTIVE DISCUSSION [facility] Reports: +/- 30 days of [...] BRAIN W & W/O: LUIS MANUEL PERDOMO [id number] -1945 M Exm Date: SEP 06, 2024@13:40 Req Phys: FRANCK TURNER Pat Loc: 5-MED/TEL/09-06-2024@19:09 Img Loc: [facility] Service: [place] [address] (Case [id number] COMPLETE) MRI BRAIN W & W/O (MRI Detailed) CPT:50574 Contrast Media : Gadolinium Reason for Study: SEE CLINICAL HISTORY Pharmaceutical: GADOTERIDOL 279.3MG/ML 20ML INJ, 19ml Clinical History: MRI Screening (Required): IMPLANTED DEVICE DOCUMENTATION IMPLANTED DEVICE DOCUMENTATION NOT FOUND Does the have any Cardiac Implants? None Does the [place] have any implanted stimulators? None Does the [place] have cochlear implants? No Does the [place] have Cerebral aneurysm clip(s)? I don't know Does the [place] have any shrapnel? I don't know If [...] 06, 2024 Date Verified: SEP 06, 2024 Surveyor Rod Helper E-Sig: Report: MRI brain without and with [...] Staff: ARCENIO LEYVA, Staff Radiologist Verified by revenue cycle administrator for ARCENIO LEYVA /ARCENIO AVILA[facility] Sep 06, 2024 01:40 PM MRI C SPINE W & W/ O CONTRAST(FURTHER SEQUENCES): LUIS MANUEL PERDOMO [id number] -1945 M Exm Date: SEP 06, 2024@13:40 Req Phys: FRANCK TURNER [facility] Loc: 5-MED/TEL/09-07-2024@06:42 Img Loc: [facility] Service: [place] [address] (Case [id number] COMPLETE) MRI C SPINE W & W/O CONTRAST(FURT(MRI Detailed) CPT:85434 Contrast Media : Gadolinium Reason for Study: SEE CLINICAL HISTORY Pharmaceutical: GADOTERIDOL 279.3MG/ML 20ML INJ, 19ml Clinical History: STATUS OF PLAIN FILMS:Not performed (Provide justification for MR W/O prior plain films below.) MRI for MS MRI Screening (Required): IMPLANTED DEVICE DOCUMENTATION IMPLANTED DEVICE DOCUMENTATION NOT FOUND Does the have any Cardiac Implants? None Does the [place] have any implanted stimulators? None Does the have cochlear implants? No Does the [place] have Cerebral aneurysm clip(s)? I don't know Does the have any shrapnel? I don't know If yes, where in your body? Please list other implants not listed above: MRI table has a weight limit of 551 lbs. [place]'s Weight: *212 lb [96.16 kg] (09/04/2024 05:19) Is this patient claustrophobic?: No REASON FOR EXAM: MULTIPLE SCLEROSIS (indicate suspected or established) PERTINENT PATIENT HISTORY: MS c/f flare Risk factors for GADOLINIUM NEPHROGENIC SYSTEMIC SCLEROSIS: Report Status: Verified Date Reported: SEP 07, 2024 Date Verified: SEP 07, 2024 Surveyor Rod Helper E-Sig: Report: EXAMINATION: MRI OF THE CERVICAL [...] Interpreting Staff: HUANG TAI, Radiologist Verified by revenue cycle administrator for HUANG TAI /HUANG [facility] Sep 03, 2024 10:45 AM CHEST SINGLE(1) EW: LUIS MANUEL PERDOMO [id number] -1945 M Ex Date: SEP 03, 2024@10:45 Req Phys: FRANCK TURNER Faith Loc: 5-MED/TEL/09-03-2024@10:56 Img Loc: [facility] RADIOLOGY Service: [place] [address] (Case [id number] COMPLETE)CHEST SINGLE(1) VIEW (RAD Detailed) CPT:89567 Proc Modifiers : PORTABLE EXAM Reason for Study: Eval volume status Clinical History: Report Status: Verified Date Reported: SEP 03, 2024 Date Verified: SEP 03, 2024 Surveyor Rod Helper E-Sig: Report: EXAMINATION: SINGLE VIEW CHEST CLINICAL [...] Interpreting Staff: HUANG TAI, Radiologist Verified by revenue cycle administrator for HUANG TAI /HUANG WHEATLEY-Sav [facility] Aug 29, 2024 08:[address] HEAD W/O CONT: LUIS MANUEL PERDOMO [id number] -1945 M Exm Date: AUG 29, 2024@20:28 Req Phys: FELISA COLE Loc: ED/4P-12A (Req'g Loc) Img Loc: CT SCAN Service: [place] [address] (Case [id number] COMPLETE) CT HEAD W/O CONT (CT Detailed) CPT:52894 Reason for Study: SEE CLINICAL HISTORY Clinical History: REASON FOR SEND OUT: ATTENDING PHYSICIAN NAME: New transient neurological s/s - suspected TIA HISTORY/REASON FOR EXAM: confusion Report Status: Verified Date Reported: AUG 29, 2024 Date Verified: AUG 29, 2024 Surveyor Rod Helper E-Sig: Report: HISTORY confusion COMPARISON No prior [...] Staff: ABDIRAHMAN CROW, Staff Physician Verified by revenue cycle administrator for ABDIRAHMAN CROW [facility] [...] Reporting Lab: [facility] [CLIA# [id number]] [address] [place] [id number] Accession [UID]: [id number] [[id number]] Received: Sep 03, 2024@14:02 Collection sample: URINE, [...] Performed By: [facility] [CLIA# [id number]] [address] [place] [id number] MAGDY CALABRESE [facility] Sep 02, 2024 06:00 PM LR MICROBIOLOGY RE PORT: Reporting Lab: [facility] [IA# [id number]] [address] [place] [phone] Accession [UID]: [id number] [[id number]] Received: Sep 02, 2024@18:07 Collection sample: BLD CULTURE BOTTLES Collection date: Sep 02, 2024 18:00 Site/Specimen: BLOOD Provider: FRANCK TURNER Comment on specimen: L HAND Test(s) ordered: CULTURE, BLOOD................ completed: Sep 08, 2024 * BACTERIOLOGY FINAL REPORT => Sep 08, 2024 08:25 TECH CODE: [id number] Bacteriology Remark(s): Blood culture status=NO GROWTH (unless notified otherwise) 09/03/2024 AEROBIC: NO GROWTH ANAEROBIC: NO GROWTH =--=--=--=--=--=--=--=--=--=-- =--=--=--=--=--=--=--=--=--=-- =--=--=--=--=--=-- Performing Laboratory: Bacteriology Report Performed By: [facility] [CLIA# [id number]] [address] [place] [phone] MAGDY CALABRESE [facility] Aug 29, 2024 10:18 PM LR MICROBIOLOGY RE PORT: Reporting Lab: [facility] [IA# [id number]] [address] [place] [phone] Accession [UID]: [id number] [[id number]] Received: Aug 29, 2024@22:18 Collection sample: URINE, CLEAN CATCH Collection date: Aug 29, 2024 22:18 Site/Specimen: URINE Provider: FELISA COLE Test(s) ordered: CULTURE, URINE................ completed: Aug 31, 2024 09:51 * BACTERIOLOGY FINAL REPORT => Aug 31, 2024 09:51 TECH CODE: [id number] Bacteriology Remark(s): NO GROWTH 08/30/2024 <10,000 CFU/ML. 08/31/2024 =--=--=--=--=--=--=--=--=--=-- =--=--=--=--=--=--=--=--=--=-- =--=--=--=--=--=-- Performing Laboratory: Bacteriology Report Performed By: [facility] [CLIA# [id number]] [address] [place] [address] MAGDY CALABRESE [facility] Encounter Notes: All associated encounter notes This section contains the clinical notes associated to the Encounter. Date/Time Encounter Note(s) Provider Source Sep 06, 2024 03:14 PM DISCHARGE PLAN: LOCAL TITLE: DISCHARGE PLAN-INTERDISCIPLINARY TEAM STANDARD TITLE: DISCHARGE PLAN DATE OF NOTE: SEP 06, 2024@15:14 ENTRY DATE: SEP 06, 2024@15:14:43 AUTHOR: AMANDA FIERRO EXP COSIGNER: URGENCY: STATUS: COMPLETED Interdisciplinary Huddle [...] makes medical decisions on behalf of Patient? & spouse, Mental Health and Suicidality has been discussed in Team Huddle No Additional comments for Interdisciplinary Issues in Daily Care and Discharge Planning: [place] status update provided. Per clinical team, [place] is not stable for DC at this time. SW met with / at bedside to discuss SW/Discharge planning needs. 's states is not in agreement with going to [facility], although he has JOIE recs. SW asked about services and 's states they have used [facility] in the past and would like this same agency. [place]'s states they have also used [facility], but was not pleased with the agency. [place]'s also inquired about transportation to appointments and SW provided her with the contact for [facility] and 's outptSW. confirmed he was in agreement with the plan. SW updated the medical team on [place]'s d/c plan. No further SW/Discharge planning needs identified at this time. SW will continue to follow as needed while [place] is hospitalized. FINAL DISCHARGE PLAN: Home with family/friends Time: 15 minutes Procedure: Case Management Diagnosis: Other problems related to medical facilities and other health care This provider is receiving ongoing supervision by Diane Suh LCSW, with regard to the mental health treatment of this patient. A total of 1 hour weekly supervision is obtained, and this patient's care is discussed as needed, in compliance with [facility] Directive 1027. /rosette/ KAY DAUGHERTY, HRIS DEVELOPER Acute Care Proteomics Scientist Signed: 09/06/2024 15:32 Receipt Acknowledged By: 09/07/2024 07:37 /rosette/ JOSELITO DUARTE, RN INPATIENT INSPECTOR PROCESS// AMANDA FIERRO-[facility]
--- OUTSIDE RECORDS SUMMARY | 2024-09-06 11:33 | XMS_ITS ---
OR DAILY HOSPITALIZATION DATA [facility] Encounter Summary Created on: September 22, 2024 LUIS MANUEL PERDOMO : 1945 Sex: Male Author Name [facility] Organization [facility] Address [address] [place] [address] Care Team Providers Care Clinic Specialist Name Role Phone YULISSA HENDERSON Primary [...] PLAN F Mar 24, 2014 PLAN F [id number] LUIS MANUEL PERDOMO PATIENT [facility] [place] [facility] PREFERRED PROVIDER ORGANIZAT ION (PPO) [facility] Sep 21, 2012 [id number] LUIS MANUEL PERDOMO PATIENT [employer] ([id number]) PRESCRIPT ION WL3A Sep 21, 2012 [id number] LUIS MANUEL PERDOMO PATIENT MEDICARE (WNR) MEDICARE (M) PART B Sep 21, 2012 PART B [id number] NOEMI PERDOMO PATIENT MEDICARE (WNR) MEDICARE (M) PART A Jan 22, 2011 PART A [id number] LEANNE, NOEMI PATIENT MEDICARE PART D (WNR) MEDICARE (M) PART D Mar 24, 2014 PART D [id number] LUIS MANUEL PERDOMO PATIENT Selected Encounter This section includes the information on record at OR for the Encounter. Date/Time Encounter Type Encounter Description Reason Pro vider Source Sep 06, 2024 03:33 PM Inpatient Visit DAILY HOSPITALIZATION DATA [facility] Encounter Template Text not used by OR Plan of Treatment: Future Appointments (+ 6 months) and Future Tests (+/- 45 days) The Plan of Treatment section includes [facility] care activities for the [facility] This section includes future appointments [...] 13, 2024 08:00 AM AMBULATORY - NONE [facility] Sep 30, 2024 01:30 PM AMBULATORY - SURGERY [place] [facility] Active, Pending, and Scheduled Orders This section includes a listing of several types of active, pending, and scheduled orders, including clinic medications orders, diagnostic test orders, procedure orders and consult orders; where the start date of the order is 45 days before the date of the Encounter or 45 days after the date of theEncounter. The data comes from all [facility] facilities. Test Date/Time Test Type Test Details Facility Name Sep 13, 2024 01:33 PM Consult Order [facility] [place] [facility] Cons Chemical Processing Technician's Choice [facility] Lab Results: +/- 30 days of the [...] Type Comment Sep 09, 2024 12:16 PM [facility] GLUCOSE-HAND MONITOR CAPILLARY Specimen Type: CAPILLARY Comment: Test performed by: [id number] Meter #: [id number] Ordering Provider: FRANCK TURNER Report Released Date/Time: Sep 09, 2024 12:33 PM Reporting Lab: [address] [address] Performing Lab: [address] [address] GLUCOSE-HAND MONITOR 116 mg/dL H Sep 09, 2024 06:07 AM [facility] GLUCOSE-HAND MONITOR CAPILLARY Specime n Type: CAPILLARY Comment: Test performed by: [id number] Meter #: [id number] Ordering Provider: FRANCK TURNER Report Released Date/Time: Sep 09, 2024 08:17 AM Reporting Lab: [address] [address] Performing Lab: [address] [address] GLUCOSE-HAND MONITOR 112 mg/dL H Sep 08, 2024 09:13 PM [facility] GLUCOSE-HAND MONITOR CAPILLARY Specime n Type: CAPILLARY Comment: Test performed by: [id number] Meter #: [id number] Ordering Provider: FRANCK TURNER Report Released Date/Time: Sep 08, 2024 09:31 PM Reporting Lab: [address] [address] Performing Lab: [address] [address] GLUCOSE-HAND MONITOR 107 mg/dL H Sep 08, 2024 03:49 PM [facility] GLUCOSE-HAND MONITOR CAPILLARY Specime n Type: CAPILLARY Comment: AAMIR RN notified Test performed by: [id number] Meter #: [id number] Ordering Provider: FRANCK TURNER Report Released Date/Time: Sep 08, 2024 04:33 PM Reporting Lab: [address] [address] Performing Lab: [address] [address] GLUCOSE-HAND MONITOR 162 mg/dL H Sep 08, 2024 11:43 AM [facility] GLUCOSE-HAND MONITOR CAPILLARY Specime n Type: CAPILLARY Comment: AAMIR RN notified Test performed by: [id number] Meter #: [id number] Ordering Provider: FRANCK TURNER Report Released Date/Time: Sep 08, 2024 12:03 PM Reporting Lab: [address] [address] Performing Lab: [address] [address] GLUCOSE-HAND MONITOR 133 mg/dL H Sep 08, 2024 06:13 AM [facility] GLUCOSE-HAND MONITOR CAPILLARY Specime n Type: CAPILLARY Comment: Test performed by: [id number] Meter #: [id number] Ordering Provider: FRANCK TURNER Report Released Date/Time: Sep 08, 2024 06:46 AM Reporting Lab: [address] [address] Performing Lab: [address] [address] GLUCOSE-HAND MONITOR 104 mg/dL H Sep 07, 2024 07:59 PM [facility] GLUCOSE-HAND MONITOR CAPILLARY Specime n Type: CAPILLARY Comment: Test performed by: [id number] Meter #: [id number] Ordering Provider: FRANCK TURNER Report Released Date/Time: Sep 07, 2024 09:05 PM Reporting Lab: [address] [address] Performing Lab: [address] [address] GLUCOSE-HAND MONITOR 107 mg/dL H Sep 07, 2024 04:39 PM [facility] GLUCOSE-HAND MONITOR CAPILLARY Specime n Type: CAPILLARY Comment: Test performed by: [id number] Meter #: [id number] Ordering Provider: FRANCK TURNER Report Released Date/Time: Sep 07, 2024 05:09 PM Reporting Lab: [address] [address] Performing Lab: [address] [address] GLUCOSE-HAND MONITOR 105 mg/dL H Sep 07, 2024 11:41 AM [facility] GLUCOSE-HAND MONITOR CAPILLARY Specime n Type: CAPILLARY Comment: Test performed by: [id number] Meter #: [id number] Ordering Provider: FRANCK TURNER Report Released Date/Time: Sep 07, 2024 12:41 PM Reporting Lab: [address] [address] Performing Lab: [address] [address] GLUCOSE-HAND MONITOR 144 mg/dL H Sep 07, 2024 05:56 AM [facility] GLUCOSE-HAND MONITOR CAPILLARY Specime n Type: CAPILLARY Comment: Test performed by: [id number] Meter #: [id number] Ordering Provider: FRANCK TURNER Report Released Date/Time: Sep 07, 2024 06:31 AM Reporting Lab: [address] [address] Performing Lab: [address] [address] GLUCOSE-HAND MONITOR 96 mg/dL Sep 06, 2024 08:10 PM [facility] GLUCOSE-HAND MONITOR CAPILLARY Specime n Type: CAPILLARY Comment: Test performed by: [id number] Meter #: [id number] Ordering Provider: FRANCK TURNER Report Released Date/Time: Sep 06, 2024 08:52 PM Reporting Lab: [address] [address] Performing Lab: [address] [address] GLUCOSE-HAND MONITOR 124 mg/dL H Sep 06, 2024 04:27 PM [facility] GLUCOSE-HAND MONITOR CAPILLARY Specime n Type: CAPILLARY Comment: Test performed by: [id number] Meter #: [id number] Ordering Provider: FRANCK TURNER Report Released Date/Time: Sep 06, 2024 05:15 PM Reporting Lab: [address] [address] Performing Lab: [address] [address] GLUCOSE-HAND MONITOR 107 mg/dL H Sep 06, 2024 12:12 PM [facility] GLUCOSE-HAND MONITOR CAPILLARY Specime n Type: CAPILLARY Comment: Test performed by: [id number] Meter #: [id number] Ordering Provider: FRANCK TURNER Report Released Date/Time: Sep 06, 2024 12:29 PM Reporting Lab: [address] [address] Performing Lab: [address] [address] GLUCOSE-HAND MONITOR 181 mg/dL H -Sep 06, 2024 06:13 AM [facility] GLUCOSE-HAND MONITOR CAPILLARY Specime n Type: CAPILLARY Comment: Test performed by: [id number] Meter #: [id number] Ordering Provider: FRANCK TURNER Report Released Date/Time: Sep 06, 2024 06:36 AM Reporting Lab: [address] [address] Performing Lab: [address] [address] GLUCOSE-HAND MONITOR 102 mg/dL H Sep 05, 2024 08:47 PM [facility] GLUCOSE-HAND MONITOR CAPILLARY Specime n Type: CAPILLARY Comment: Test performed by: [id number] Meter #: [id number] Ordering Provider: FRANCK TURNER Report Released Date/Time: Sep 06, 2024 02:13 AM Reporting Lab: [address] [address] Performing Lab: [address] [address] GLUCOSE-HAND MONITOR 103 mg/dL H Sep 05, 2024 04:40 PM [facility] GLUCOSE-HAND MONITOR CAPILLARY Specime n Type: CAPILLARY Comment: AAMIR RN notified Test performed by: [id number] Meter #: [id number] Ordering Provider: FRANCK TURNER Report Released Date/Time: Sep 05, 2024 05:11 PM Reporting Lab: [address] [address] Performing Lab: [address] [address] GLUCOSE-HAND MONITOR 113 mg/dL H Sep 05, 2024 12:06 PM [facility] GLUCOSE-HAND MONITOR CAPILLARY Specime n Type: CAPILLARY Comment: Test performed by: [id number] Meter #: [id number] Ordering Provider: FRANCK TURNER Report Released Date/Time: Sep 05, 2024 12:23 PM Reporting Lab: [address] [address] Performing Lab: [address] [address] GLUCOSE-HAND MONITOR 115 mg/dL H Sep 05, 2024 06:26 AM [facility] GLUCOSE-HAND MONITOR CAPILLARY Specime n Type: CAPILLARY Comment: AAMIR Correction Dose Test performed by: [id number] Meter #: [id number] Ordering Provider: FRANCK TURNER Report Released Date/Time: Sep 05, 2024 06:43 AM Reporting Lab: [address] [address] Performing Lab: [address] [address] GLUCOSE-HAND MONITOR 111 mg/dL H Sep 04, 2024 08:59 PM [facility] GLUCOSE-HAND MONITOR CAPILLARY Specime n Type: CAPILLARY Comment: AAMIR RN notified Test performed by: [id number] Meter #: [id number] Ordering Provider: FRANCK TURNER Report Released Date/Time: Sep 04, 2024 09:36 PM Reporting Lab: [address] [address] Performing Lab: [address] [address] GLUCOSE-HAND MONITOR 123 mg/dL H Sep 04, 2024 04:41 PM [facility] GLUCOSE-HAND MONITOR CAPILLARY Specime n Type: CAPILLARY Comment: AAMIR RN notified Test performed by: [id number] Meter #: [id number] Ordering Provider: FRANCK TURNER Report Released Date/Time: Sep 04, 2024 05:03 PM Reporting Lab: [address] [address] Performing Lab: [address] [address] GLUCOSE-HAND MONITOR 118 mg/dL H Sep 04, 2024 12:36 PM [facility] GLUCOSE-HAND MONITOR CAPILLARY Specime n Type: CAPILLARY Comment: AAMIR RN notified Test performed by: [id number] Meter #: [id number] Ordering Provider: FRANCK TURNER Report Released Date/Time: Sep 04, 2024 12:53 PM Reporting Lab: [address] [address] Performing Lab: [place] [address] GLUCOSE-HAND MONITOR 129 mg/dL H 71-99 Sep 04, 2024 12:03 PM [facility] RESPIRATORY VIRUS PANEL (BIOFIRE) NASOPHARYN X Specimen Type: NASOPHARYNX Comment: ~For Test: RESPIRATORY VIRUS PANEL (BIOFIRE) ~ORDER READ BACK TO: FRANCK TURNER 09/04/24@11:30 Ordering Provider: FRANCK TURNER Report Released Date/Time: Sep 04, 2024 11:33 AM Reporting Lab: [place] [phone] Performing Lab: [place] [phone] ADENOVIRUS (BIOFIRE) Not Detected -Not D etected [...] Sep 04, 2024 06:55 AM [facility] MAGNESIUM PLASMA Specimen Type: PLASM A Comment: [...] [facility] [address] [facility] [address] Performing Lab: [place] [address] [facility] [address] MAGNESIUM 1.8 mg/dL 1.6-2.6 Sep 04, 2024 06:55 AM [facility] PANEL 1 PLASMA Specimen Type: PLASM A [...] 03, 2024 11:10 AM Reporting Lab: [address] [address] Performing Lab: [address] CREATININE 0.75 mg/dL 0.72-1.25 UREA NITROGEN 13 mg/dL 9-25 GLUCOSE 105 mg/dL H 74-100 SODIUM 128 mmol/L L 136-145 POTASSIUM 3.9 mmol/L 3.5-5.1 CHLORIDE 99 mmol/L 98-107 CO2 21 mmol/L L 22-29 CALCIUM 8.0 mg/dL L 8.4-10.2 ANION GAP 8 meq/L 3-19 eGFR (CKD-EPI) >90 Sep 04, 2024 06:02 AM [facility] GLUCOSE-HAND MONITOR CAPILLARY Specime n Type: CAPILLARY Comment: Test performed by: [id number] Meter #: [id number] Ordering Provider: FRANCK TURNER Report Released Date/Time: Sep 04, 2024 06:28 AM Reporting Lab: [address] Performing Lab: [address] GLUCOSE-HAND MONITOR 114 mg/dL H 71-99 Sep 03, 2024 05:19 PM [facility] GLUCOSE-HAND MONITOR CAPILLARY Specime n Type: CAPILLARY Comment: Test performed by: [id number] Meter #: [id number] Ordering Provider: FRANCK TURNER Report Released Date/Time: Sep 03, 2024 05:37 PM Reporting Lab: [address] Performing Lab: [address] [address] GLUCOSE-HAND MONITOR 124 mg/dL H 71-99 Sep 03, 2024 04:41 PM [facility] GLUCOSE-HAND MONITOR CAPILLARY Specime n Type: CAPILLARY Comment: Test performed by: [id number] Meter #: [id number] Ordering Provider: FRANCK TURNER Report Released Date/Time: Sep 03, 2024 06:09 PM Reporting Lab: [address] [address] Performing Lab: [address] [address] GLUCOSE-HAND MONITOR 112 mg/dL H 71-99 Sep 03, 2024 01:35 PM [facility] CREATININE URINE Specimen Type: URINE Comment: ~Altered mental status with no identifiable cause Ordering Provider: FRANCK TURNER Report Released Date/Time: Sep 02, 2024 04:44 PM Reporting Lab: [facility] [address] [place] [address] Performing Lab: [address] [address] CREATININE 150.9 mg/dL Sep 03, 2024 01:35 PM [facility] URINE LYTES URINE Specimen Type : URINE Comment: ~Altered mental status with no identifiable cause Ordering Provider: FRANCK TURNER Report Released Date/Time: Sep 02, 2024 04:44 PM Reporting Lab: [address] [address] Performing Lab: [address] [address] SODIUM 130 mmol/L POTASSIUM 47.6 mmol/L CHLORIDE 137 mmol/L Sep 03, 2024 01:35 PM [facility] UREA NITROGEN URINE Specimen Type : URINE Comment: ~Altered mental status with no identifiable cause Ordering Provider: FRANCK TURNER Report Released Date/Time: Sep 02, 2024 04:44 PM Reporting Lab: [address] [address] Performing Lab: [address] [address] UREA NITROGEN 320 mg/dL Sep 03, 2024 01:35 PM [facility] OSMOLALITY URINE Specimen Type: URINE Comment: ~Altered mental status with no identifiable cause Ordering Provider: FRANCK TURNER Report Released Date/Time: Sep 02, 2024 04:44 PM Reporting Lab: [address] [address] Performing Lab: [address] [address] OSMOLALITY 522 mosm/kg 38-1400 Sep 03, 2024 01:35 PM [facility] URINALYSIS WITH REFLEX TO CULTURE URINE Specimen Type: URINE Comment: ~Altered mental status with no identifiable cause Ordering Provider: FRANCK TURNER Report Released Date/Time: Sep 02, 2024 04:44 PM Reporting Lab: [address] [address] Performing Lab: [address] [address] URINE COLOR Yellow Colorless-Yellow APPEARANCE CLOUDY H [...] Sep 03, 2024 11:58 AM [facility] GLUCOSE-HAND MONITOR CAPILLARY Specime n Type: CAPILLARY Comment: AAMIR RN notified Test performed by: [id number] Meter #: [id number] Ordering Provider: FRANCK TURNER Report Released Date/Time: Sep 03, 2024 12:15 PM Reporting Lab: [address] [address] Performing Lab: [address] [address] GLUCOSE-HAND MONITOR 135 mg/dL H Sep 03, 2024 07:09 AM [facility] GLUCOSE-HAND MONITOR CAPILLARY Specime n Type: CAPILLARY Comment: Test performed by: [id number] Meter #: [id number] Ordering Provider: FRANCK TURNER Report Released Date/Time: Sep 03, 2024 07:26 AM Reporting Lab: [address] [address] Performing Lab: [address] [address] GLUCOSE-HAND MONITOR 120 mg/dL H -Sep 03, 2024 07:05 AM [facility] MAGNESIUM PLASMA Specimen Type: PLASM A Comment: [...] 02, 2024 04:29 PM Reporting Lab: [address] [address] Performing Lab: [address] [address] MAGNESIUM 1.7 mg/dL 1.6-2.6 Sep 03, 2024 07:05 AM [facility] CBC/PLT BLOOD Specimen Type: BLOOD No comment entered. Ordering Provider: FRANCK TURNER Report Released Date/Time: Sep 02, 2024 04:29 PM Reporting Lab: [facility] [address] [facility] [address] Performing Lab: [address] [address] WBC 6.9 10*3/uL 5.0-10.0 RBC 3.48 10*6/uL L 4.6-6.2 HGB 9.5 g/dL L 14.0-18.0 HCT 29.1 L 42.0-52.0 MCV 83.6 fL 80.0-94.0 MCH 27.3 pg 27.0-31.0 MCHC 32.6 g/dL 32.0-36.0 PLT 258 10*3/uL 150-450 MPV 10.3 fL 9.0-13.1 RDW 14.8 11.0-16.0 NRBC 0.0 0.0-0.0 Sep 03, 2024 07:05 AM [facility] PANEL 1 PLASMA Specimen Type: PLASM A [...] 02, 2024 04:29 PM Reporting Lab: [address] [address] Performing Lab: [address] [address] CREATININE 0.82 mg/dL 0.72-1.25 UREA NITROGEN 12 mg/dL 9-25 GLUCOSE 109 mg/dL H 74-100 SODIUM 129 mmol/L L 136-145 POTASSIUM 4.2 mmol/L 3.5-5.1 CHLORIDE 99 mmol/L 98-107 CO2 21 mmol/L L 22-29 CALCIUM 8.1 mg/dL L 8.4-10.2 ANION GAP 9 meq/L 3-19 eGFR (CKD-EPI) 90 Sep 03, 2024 07:05 AM [facility] GLYCOHEMOGLOBIN BLOOD Specimen Type: BLOOD Comment: Prediabetes: 5.7%-6.4% Diabetes: >= 6.5% [facility] guidelines for A1c interpretation: Glycemic [...] 8.73 and 9.27. Ref: https://ngsp.org/CAPdata.asp. The in-house [employer] - A [employer] D-100 analyzer has a historical CV <= 2%. Contact the laboratory for further performance characteristics of this assay. Ordering Provider: FRANCK TURNER Report Released Date/Time: Sep 02, 2024 04:29 PM Reporting Lab: [address] [address] Performing Lab: [place] [phone] GLYCOHEMOGLOBIN 5.6 4.4-5.6 Sep 03, 2024 07:05 AM [facility] OSMOLALITY SERUM Specimen Type: SERUM No comment entered. Ordering Provider: FRANCK TURNER Report Released Date/Time: Sep 02, 2024 04:44 PM Reporting Lab: [address] [address] Performing Lab: [address] [address] OSMOLALITY 271 mosm/kg L 280-300 Sep 02, 2024 08:15 PM [facility] GLUCOSE-HAND MONITOR CAPILLARY Specime n Type: CAPILLARY Comment: AAMIR DEXTER notified Test performed by: [id number] Meter #: [id number] Ordering Provider: FRANCK TURNER Report Released Date/Time: Sep 02, 2024 08:57 PM Reporting Lab: [address] [address] Performing Lab: [address] [address] GLUCOSE-HAND MONITOR 126 mg/dL H 71-99 Sep 02, 2024 06:10 PM [facility] MRSA SURVL NARES DNA NARES Specime n [...] 02, 2024 05:12 PM Reporting Lab: [address] [address] Performing Lab: [address] [address] MRSA SURVL NARES DNA Negative Negative Sep 02, 2024 05:36 PM [facility] GLUCOSE-HAND MONITOR CAPILLARY Specime n Type: CAPILLARY Comment: Test performed by: [id number] Meter #: [id number] Ordering Provider: FRANCK TURNER Report Released Date/Time: Sep 02, 2024 05:53 PM Reporting Lab: [address] [address] Performing Lab: [address] [address] GLUCOSE-HAND MONITOR 127 mg/dL H 71-99 Aug 29, 2024 10:04 PM [facility] URINALYSIS WITH REFLEX TO CULTURE URINE Specimen Type: URINE Comment: ~For Test: URINALYSIS WITH REFLEX TO CULTURE ~REORDER Ordering Provider: FELISA COLE Report Released Date/Time: Aug 29, 2024 09:36 PM Reporting Lab: [address] [address] Performing Lab: [address] [address] URINE COLOR Yellow Colorless-Yellow APPEARANCE Clear Clear [...] /[LPF] 0-28 Aug 29, 2024 08:32 PM [facility] HIGH SENSITIVITY TROPONIN I PLASMA [...] 29, 2024 07:55 PM Reporting Lab: [address] [address] Performing Lab: [address] [address] HIGH SENSITIVITY TROPONIN I 7 4-35 Aug 29, 2024 08:32 PM [facility] CBC/PLT BLOOD Specimen Type: BLOOD No comment entered. Ordering Provider: FELISA COLE Report Released Date/Time: Aug 29, 2024 07:55 PM Reporting Lab: [address] [address] Performing Lab: [address] [address] WBC 11.2 10*3/uL H 5.0-10.0 RBC 3.97 10*6/uL L 4.6-6.2 HGB 10.9 g/dL L 14.0-18.0 HCT 33.5 L 42.0-52.0 MCV 84.4 fL 80.0-94.0 MCH 27.5 pg 27.0-31.0 MCHC 32.5 g/dL 32.0-36.0 PLT 230 10*3/uL 150-450 MPV 10.2 fL 9.0-13.1 RDW 14.6 11.0-16.0 NRBC 0.0 0.0-0.0 Aug 29, 2024 08:32 PM [facility] PANEL 5 PLASMA Specimen Type: [...] 29, 2024 07:55 PM Reporting Lab: [address] [address] Performing Lab: [address] [address] CREATININE 0.85 mg/dL 0.72-1.25 UREA NITROGEN 15 [...] 08, 2024 ADVANCE DIRECTIVE DISCUSSION [facility] Radiology Reports: +/- 30 days of [...] BRAIN W & W/O: LU[place] MANU[place] PERDOMO [id number] -1945 M Exm Date: SEP 06, 2024@13:40 Req Phys: FRANCK TURNER Pat Loc: 5-MED/TEL/09-06-2024@19:09 Img Loc: [facility] Service: [place] [address] (Case [id number] COMPLETE) MRI BRAIN W & W/O (MRI Detailed) CPT:83589 Contrast Media : Gadolinium Reason for Study: SEE CLINICAL HISTORY Pharmaceutical: GADOTERIDOL 279.3MG/ML 20ML INJ, 19ml Clinical History: MRI Screening (Required): IMPLANTED DEVICE DOCUMENTATION IMPLANTED DEVICE DOCUMENTATION NOT FOUND Does the have any Cardiac Implants? None Does the have any implanted stimulators? None Does the [place] have cochlear implants? No Does the have [...] 06, 2024 Date Verified: SEP 06, 2024 Engineering Surveyor E-Sig: Report: MRI brain without and with [...] Staff: ARCENIO LEYVA, Staff Radiologist Verified by plastics fabricator or welder for ARCENIO LEYVA /ARCENIO AVILA-CDD [facility] Sep 06, 2024 01:40 PM MRI C SPINE W & W/ O CONTRAST(FURTHER SEQUENCES): LUIS MANUEL PERDOMO [id number] -1945 M Exm Date: SEP 06, 2024@13:40 Req Phys: FRANCK TURNERSav Pat Loc: 5-MED/TEL/09-07-2024@06:42 Img Loc: [facility] Service: [place] [address] (Case [id number] COMPLETE) MRI C SPINE W & W/O CONTRAST(FURT(MRI Detailed) CPT:83515 Contrast Media : Gadolinium Reason for Study: [...] the have cochlear implants? No Does the [place] have Cerebral aneurysm clip(s)? I don't know [...] 07, 2024 Date Verified: SEP 07, 2024 Engineering Surveyor E-Sig: Report: EXAMINATION: MRI OF THE CERVICAL [...] Interpreting Staff: HUANG TAI, Radiologist Verified by plastics fabricator or welder for HUANG TAI /HUANG WHEATLEY-Sav [facility] Sep 03, 2024 10:45 AM CHEST SINGLE(1) EW: LUIS MANUEL PERDOMO [id number] -1945 M Exm Date: SEP 03, 2024@10:45 Req Phys: FRANCK TURNER Pat Loc: 5-MED/TEL/09-03-2024@10:56 Img Loc: [facility]Y Service: [place] [address] (Case [id number] COMPLETE)CHEST SINGLE(1) VIEW (RAD Detailed) CPT:24658 Proc Modifiers : PORTABLE EXAM Reason for Study: Eval volume status Clinical History: Report Status: Verified Date Reported: SEP 03, 2024 Date Verified: SEP 03, 2024 Engineering Surveyor E-Sig: Report: EXAMINATION: SINGLE VIEW CHEST CLINICAL [...] Interpreting Staff: HUANG TAI, Radiologist Verified by plastics fabricator or welder for HUANG TAI /HUANG WHEATLEY-D [facility] Aug 29, 2024 08:[address] HEAD W/O CONT: LUIS MANUEL PERDOMO FABIAN [id number] -1945 M Exm Date: AUG 29, 2024@20:28 Req Phys: FELISA COLE Loc: ED/4P-12A (Req'g Loc) Img Loc: CT SCAN Service: Unknown [place] [id number] (Case [id number] COMPLETE) CT HEAD W/O CONT (CT Detailed) CPT:57569 Reason for Study: SEE CLINICAL HISTORY Clinical History: REASON FOR SEND OUT: ATTENDING PHYSICIAN NAME: New transient neurological s/s - suspected TIA HISTORY/REASON FOR EXAM: confusion Report Status: Verified Date Reported: AUG 29, 2024 Date Verified: AUG 29, 2024 Engineering Surveyor E-Sig: Report: HISTORY confusion COMPARISON No prior [...] Staff: ABDIRAHMAN CROW, Staff Physician Verified by plastics fabricator or welder for ABDIRAHMAN CROW /GUERITA CROW,ABDIRAHMAN RUBI-D ALEDA [...] Lab: [facility] [CLIA# [id number]] [address] [place] [id number] Accession [UID]: [id number] [[id number]] Received: Sep 03, 2024@14:02 Collection sample: URINE, [...] By: [facility] [CLIA# [id number]] [address] [place] [id number] [facility] Sep 02, 2024 06:00 PM LR MICROBIOLOGY RE PORT: Reporting Lab: [facility] [CLIA# [id number]] [address] [place] [address] Accession [UID]: [id number] [[id number]] Received: Sep 02, 2024@18:07 Collection sample: BLD CULTURE BOTTLES Collection date: Sep 02, 2024 18:00 Site/Specimen: BLOOD Provider: FRANCK TURNER Comment on specimen: L HAND Test(s) ordered: CULTURE, BLOOD................ completed: Sep 08, 2024 * BACTERIOLOGY FINAL REPORT => Sep 08, 2024 08:25 TECH CODE: [id number] Bacteriology Remark(s): Blood culture status=NO GROWTH (unless notified otherwise) 09/03/2024 AEROBIC: NO GROWTH ANAEROBIC: NO GROWTH =--=--=--=--=--=--=--=--=--=-- =--=--=--=--=--=--=--=--=--=-- =--=--=--=--=--=-- Performing Laboratory: Bacteriology Report Performed By: [facility] [CLIA# [id number]] [address] [place] [address] MAGDY CALABRESE [facility] Aug 29, 2024 10:18 PM LR MICROBIOLOGY RE PORT: Reporting Lab: [facility] [CLIA# [id number]] [address] [place] [address] Accession [UID]: [id number] [[id number]] Received: Aug 29, 2024@22:18 Collection sample: URINE, CLEAN CATCH Collection date: Aug 29, 2024 22:18 Site/Specimen: URINE Provider: FELISA COLE Test(s) ordered: CULTURE, URINE................ completed: Aug 31, 2024 09:51 * BACTERIOLOGY FINAL REPORT => Aug 31, 2024 09:51 TECH CODE: [id number] Bacteriology Remark(s): NO GROWTH 08/30/2024 <10,000 CFU/ML. 08/31/2024 =--=--=--=--=--=--=--=--=--=-- =--=--=--=--=--=--=--=--=--=-- =--=--=--=--=--=-- Performing Laboratory: Bacteriology Report Performed By: [facility] [CLIA# [id number]] [address] [place] [address] MAGDY CALABRESE-[facility]
--- OUTSIDE RECORDS SUMMARY | 2024-09-06 15:09 | XMS_ITS ---
[place] DAILY HOSPITALIZATION DATA [facility] Encounter Summary Created on: September 22, 2024 LUIS MANUEL PERDOMO : 1945 Sex: Male Author Name [facility] Address [address] [place] [address] Care Team Providers Care Release Of Information Specialist Name Role Phone YULISSA HENDERSON Primary [...] PLAN F Mar 24, 2014 PLAN F [id number] LUIS MANUEL PERDOMO PATIENT [facility] [place] [facility] PREFERRED PROVIDER ORGANIZAT ION (PPO) [facility] Sep 21, 2012 [id number] [phone] LUIS MANUEL PERDOMO PATIENT [employer] ([id number]) PRESCRIPT ION WL3A Sep 21, 2012 [id number] LUIS MANUEL PERDOMO PATIENT MEDICARE (WNR) MEDICARE (M) PART B Sep 21, 2012 PART B [id number] NOEMI PERDOMO PATIENT MEDICARE (WNR) MEDICARE (M) PART A Jan 22, 2011 PART A [id number] LEANNE, NOEMI PATIENT MEDICARE PART D (WNR) MEDICARE (M) PART D Mar 24, 2014 PART D [id number] LUIS MANUEL PERDOMO PATIENT Selected Encounter This section includes the information on record at [place] for the Encounter. Date/Time Encounter Type Encounter Description Reason Pro vider Source Sep 06, 2024 07:09 PM Inpatient Visit DAILY HOSPITALIZATION DATA [facility] Encounter Template Text not used by [place] Plan of Treatment: Future Appointments (+ 6 months) and Future Tests (+/- 45 days) The Plan of Treatment section includes future care activities for the patient from all [place] [facility]. This section includes future appointments and future [...] 13, 2024 08:00 AM AMBULATORY - NONE [facility] Sep 30, 2024 01:30 [...] Sep 13, 2024 01:33 PM Consult Order [facility] SKILLED HOME CARE Cons Campaign Analyst's Choice [facility] Lab Results: +/- [...] Type Comment Sep 09, 2024 12:16 PM [facility] GLUCOSE-HAND MONITOR CAPILLARY Specimen Type: CAPILLARY Comment: Test performed by: [id number] Meter #: [id number] Ordering Provider: FRANCK TURNER Report Released Date/Time: Sep 09, 2024 12:33 PM Reporting Lab: [address] [address] Performing Lab: [address] [address] GLUCOSE-HAND MONITOR 116 mg/dL H Sep 09, 2024 06:07 AM [facility] GLUCOSE-HAND MONITOR CAPILLARY Specime n Type: CAPILLARY Comment: Test performed by: [id number] Meter #: [id number] Ordering Provider: FRANCK TURNER Report Released Date/Time: Sep 09, 2024 08:17 AM Reporting Lab: [address] [address] Performing Lab: [address] [address] GLUCOSE-HAND MONITOR 112 mg/dL H Sep 08, 2024 09:13 PM [facility] GLUCOSE-HAND MONITOR CAPILLARY Specime n Type: CAPILLARY Comment: Test performed by: [id number] Meter #: [id number] Ordering Provider: FRANCK TURNER Report Released Date/Time: Sep 08, 2024 09:31 PM Reporting Lab: [address] [address] Performing Lab: [address] [address] GLUCOSE-HAND MONITOR 107 mg/dL H Sep 08, 2024 03:49 PM [facility] GLUCOSE-HAND MONITOR CAPILLARY Specime n Type: CAPILLARY Comment: AAMIR RN notified Test performed by: [id number] Meter #: [id number] Ordering Provider: FRANCK TURNER Report Released Date/Time: Sep 08, 2024 04:33 PM Reporting Lab: [address] [address] Performing Lab: [address] [address] GLUCOSE-HAND MONITOR 162 mg/dL H Sep 08, 2024 11:43 AM [facility] GLUCOSE-HAND MONITOR CAPILLARY Specime n Type: CAPILLARY Comment: AAMIR RN notified Test performed by: [id number] Meter #: [id number] Ordering Provider: FRANCK TURNER Report Released Date/Time: Sep 08, 2024 12:03 PM Reporting Lab: [address] [address] Performing Lab: [address] [address] GLUCOSE-HAND MONITOR 133 mg/dL H Sep 08, 2024 06:13 AM [facility] GLUCOSE-HAND MONITOR CAPILLARY Specime n Type: CAPILLARY Comment: Test performed by: [id number] Meter #: [id number] Ordering Provider: FRANCK TURNER Report Released Date/Time: Sep 08, 2024 06:46 AM Reporting Lab: [address] [address] Performing Lab: [address] [address] GLUCOSE-HAND MONITOR 104 mg/dL H Sep 07, 2024 07:59 PM [facility] GLUCOSE-HAND MONITOR CAPILLARY Specime n Type: CAPILLARY Comment: Test performed by: [id number] Meter #: [id number] Ordering Provider: FRANCK TURNER Report Released Date/Time: Sep 07, 2024 09:05 PM Reporting Lab: [address] [address] Performing Lab: [address] [address] GLUCOSE-HAND MONITOR 107 mg/dL H Sep 07, 2024 04:39 PM [facility] GLUCOSE-HAND MONITOR CAPILLARY Specime n Type: CAPILLARY Comment: Test performed by: [id number] Meter #: [id number] Ordering Provider: FRANCK TURNER Report Released Date/Time: Sep 07, 2024 05:09 PM Reporting Lab: [address] [address] Performing Lab: [address] [address] GLUCOSE-HAND MONITOR 105 mg/dL H Sep 07, 2024 11:41 AM [facility] GLUCOSE-HAND MONITOR CAPILLARY Specime n Type: CAPILLARY Comment: Test performed by: [id number] Meter #: [id number] Ordering Provider: FRANCK TURNER Report Released Date/Time: Sep 07, 2024 12:41 PM Reporting Lab: [address] [address] Performing Lab: [address] [address] GLUCOSE-HAND MONITOR 144 mg/dL H Sep 07, 2024 05:56 AM [facility] GLUCOSE-HAND MONITOR CAPILLARY Specime n Type: CAPILLARY Comment: Test performed by: [id number] Meter #: [id number] Ordering Provider: FRANCK TURNER Report Released Date/Time: Sep 07, 2024 06:31 AM Reporting Lab: [address] [address] Performing Lab: [address] [address] GLUCOSE-HAND MONITOR 96 mg/dL Sep 06, 2024 08:10 PM [facility] GLUCOSE-HAND MONITOR CAPILLARY Specime n Type: CAPILLARY Comment: Test performed by: [id number] Meter #: [id number] Ordering Provider: FRANCK TURNER Report Released Date/Time: Sep 06, 2024 08:52 PM Reporting Lab: [address] [address] Performing Lab: [address] [address] GLUCOSE-HAND MONITOR 124 mg/dL H Sep 06, 2024 04:27 PM [facility] GLUCOSE-HAND MONITOR CAPILLARY Specime n Type: CAPILLARY Comment: Test performed by: [id number] Meter #: [id number] Ordering Provider: FRANCK TURNER Report Released Date/Time: Sep 06, 2024 05:15 PM Reporting Lab: [address] [address] Performing Lab: [address] [address] GLUCOSE-HAND MONITOR 107 mg/dL H Sep 06, 2024 12:12 PM [facility] GLUCOSE-HAND MONITOR CAPILLARY Specime n Type: CAPILLARY Comment: Test performed by: [id number] Meter #: [id number] Ordering Provider: FRANCK TURNER Report Released Date/Time: Sep 06, 2024 12:29 PM Reporting Lab: [address] [address] Performing Lab: [address] [address] GLUCOSE-HAND MONITOR 181 mg/dL H -Sep 06, 2024 06:13 AM [facility] GLUCOSE-HAND MONITOR CAPILLARY Specime n Type: CAPILLARY Comment: Test performed by: [id number] Meter #: [id number] Ordering Provider: FRANCK TURNER Report Released Date/Time: Sep 06, 2024 06:36 AM Reporting Lab: [address] [address] Performing Lab: [address] [address] GLUCOSE-HAND MONITOR 102 mg/dL H Sep 05, 2024 08:47 PM [facility] GLUCOSE-HAND MONITOR CAPILLARY Specime n Type: CAPILLARY Comment: Test performed by: [id number] Meter #: [id number] Ordering Provider: FRANCK TURNER Report Released Date/Time: Sep 06, 2024 02:13 AM Reporting Lab: [address] [address] Performing Lab: [address] [address] GLUCOSE-HAND MONITOR 103 mg/dL H Sep 05, 2024 04:40 PM [facility] GLUCOSE-HAND MONITOR CAPILLARY Specime n Type: CAPILLARY Comment: AAMIR RN notified Test performed by: [id number] Meter #: [id number] Ordering Provider: FRANCK TURNER Report Released Date/Time: Sep 05, 2024 05:11 PM Reporting Lab: [address] [address] Performing Lab: [address] [address] GLUCOSE-HAND MONITOR 113 mg/dL H Sep 05, 2024 12:06 PM [facility] GLUCOSE-HAND MONITOR CAPILLARY Specime n Type: CAPILLARY Comment: Test performed by: [id number] Meter #: [id number] Ordering Provider: FRANCK TURNER Report Released Date/Time: Sep 05, 2024 12:23 PM Reporting Lab: [address] [address] Performing Lab: [address] [address] GLUCOSE-HAND MONITOR 115 mg/dL H Sep 05, 2024 06:26 AM [facility] GLUCOSE-HAND MONITOR CAPILLARY Specime n Type: CAPILLARY Comment: AAMIR Correction Dose Test performed by: [id number] Meter #: [id number] Ordering Provider: FRANCK TURNER Report Released Date/Time: Sep 05, 2024 06:43 AM Reporting Lab: [address] [address] Performing Lab: [address] [address] GLUCOSE-HAND MONITOR 111 mg/dL H Sep 04, 2024 08:59 PM [facility] GLUCOSE-HAND MONITOR CAPILLARY Specime n Type: CAPILLARY Comment: AAMIR RN notified Test performed by: [id number] Meter #: [id number] Ordering Provider: FRANCK TURNER Report Released Date/Time: Sep 04, 2024 09:36 PM Reporting Lab: [address] [address] Performing Lab: [address] [address] GLUCOSE-HAND MONITOR 123 mg/dL H Sep 04, 2024 04:41 PM [facility] GLUCOSE-HAND MONITOR CAPILLARY Specime n Type: CAPILLARY Comment: AAMIR RN notified Test performed by: [id number] Meter #: [id number] Ordering Provider: FRANCK TURNER Report Released Date/Time: Sep 04, 2024 05:03 PM Reporting Lab: [address] [address] Performing Lab: [address] [address] GLUCOSE-HAND MONITOR 118 mg/dL H Sep 04, 2024 12:36 PM [facility] GLUCOSE-HAND MONITOR CAPILLARY Specime n Type: CAPILLARY Comment: AAMIR RN notified Test performed by: [id number] Meter #: [id number] Ordering Provider: FRANCK TURNER Report Released Date/Time: Sep 04, 2024 12:53 PM Reporting Lab: [address] [address] Performing Lab: [place] [address] GLUCOSE-HAND MONITOR 129 mg/dL H 71-99 Sep 04, 2024 12:03 PM [facility] RESPIRATORY VIRUS PANEL (BIOFIRE) NASOPHARYN X Specimen Type: NASOPHARYNX Comment: ~For Test: RESPIRATORY VIRUS PANEL (BIOFIRE) ~ORDER READ BACK TO: FRANCK TURNER 09/04/24@11:30 Ordering Provider: FRANKC TURNER Report Released Date/Time: Sep 04, 2024 11:33 AM Reporting Lab: [place] [phone] Performing Lab: [place] [phone] ADENOVIRUS (BIOFIRE) Not Detected -Not D etected [...] -Not Detected Sep 04, 2024 06:55 AM [facility] MAGNESIUM PLASMA Specimen [...] [facility] [address] [facility] [address] Performing Lab: [place] [address] [facility] [address] MAGNESIUM 1.8 mg/dL 1.6-2.6 Sep 04, 2024 [...] Sep 03, 2024 11:10 AM Reporting Lab: [address] [address] Performing Lab: [address] CREATININE 0.75 mg/dL 0.72-1.25 UREA NITROGEN [...] n Type: CAPILLARY Comment: Test performed by: [id number] Meter #: [id number] Ordering Provider: FRANCK TURNER Report Released Date/Time: Sep 04, 2024 06:28 AM Reporting Lab: [address] Performing Lab: [address] GLUCOSE-HAND MONITOR 114 mg/dL H 71-99 Sep 03, 2024 05:19 PM [facility] GLUCOSE-HAND MONITOR CAPILLARY Specime n Type: CAPILLARY Comment: Test performed by: [id number] Meter #: [id number] Ordering Provider: FRANCK TURNER Report Released Date/Time: Sep 03, 2024 05:37 PM Reporting Lab: [address] Performing Lab: [address] [address] GLUCOSE-HAND MONITOR 124 mg/dL H 71-99 Sep 03, 2024 04:41 PM [facility] GLUCOSE-HAND MONITOR CAPILLARY Specime n Type: CAPILLARY Comment: Test performed by: [id number] Meter #: [id number] Ordering Provider: FRANCK TURNER Report Released Date/Time: Sep 03, 2024 06:09 PM Reporting Lab: [address] [address] Performing Lab: [address] [address] GLUCOSE-HAND MONITOR 112 mg/dL H 71-99 Sep 03, 2024 01:35 PM [facility] CREATININE URINE Specimen Type: URINE Comment: ~Altered mental status with no identifiable cause Ordering Provider: FRANCK TURNER Report Released Date/Time: Sep 02, 2024 04:44 PM Reporting Lab: [facility] [address] [place] [address] Performing Lab: [address] [address] CREATININE 150.9 mg/dL Sep 03, 2024 01:35 PM [facility] URINE LYTES URINE Specimen Type : URINE Comment: ~Altered mental status with no identifiable cause Ordering Provider: FRANCK TURNER Report Released Date/Time: Sep 02, 2024 04:44 PM Reporting Lab: [address] [address] Performing Lab: [address] [address] SODIUM 130 mmol/L POTASSIUM 47.6 mmol/L CHLORIDE 137 mmol/L Sep 03, 2024 01:35 PM [facility] UREA NITROGEN URINE Specimen Type : URINE Comment: ~Altered mental status with no identifiable cause Ordering Provider: FRANCK TURNER Report Released Date/Time: Sep 02, 2024 04:44 PM Reporting Lab: [address] [address] Performing Lab: [address] [address] UREA NITROGEN 320 mg/dL Sep 03, 2024 01:35 PM [facility] URINALYSIS WITH REFLEX TO CULTURE URINE Specimen Type: URINE Comment: ~Altered mental status with no identifiable cause Ordering Provider: FRANCK TURNER Report Released Date/Time: Sep 02, 2024 04:44 PM Reporting Lab: [address] [address] Performing Lab: [address] [address] URINE COLOR Yellow Colorless-Yellow APPEARANCE CLOUDY H [...] H 0-28 Sep 03, 2024 01:35 PM [facility] OSMOLALITY URINE Specimen Type: URINE Comment: ~Altered mental status with no identifiable cause Ordering Provider: FRANCK TURNER Report Released Date/Time: Sep 02, 2024 04:44 PM Reporting Lab: [place] [phone] Performing Lab: [place] [phone] OSMOLALITY 522 mosm/kg 38-1400 Sep 03, 2024 11:58 AM [facility] GLUCOSE-HAND MONITOR CAPILLARY Specime n Type: CAPILLARY Comment: AAMIR RN notified Test performed by: [id number] Meter #: [id number] Ordering Provider: FRANCK TURNER Report Released Date/Time: Sep 03, 2024 12:15 PM Reporting Lab: [address] [address] Performing Lab: [address] [address] GLUCOSE-HAND MONITOR 135 mg/dL H Sep 03, 2024 07:09 AM [facility] GLUCOSE-HAND MONITOR CAPILLARY Specime n Type: CAPILLARY Comment: Test performed by: [id number] Meter #: [id number] Ordering Provider: FRANCK TURNER Report Released Date/Time: Sep 03, 2024 07:26 AM Reporting Lab: [address] [address] Performing Lab: [address] [address] GLUCOSE-HAND MONITOR 120 mg/dL H Sep 03, 2024 07:05 AM [facility] CBC/PLT BLOOD Specimen Type: BLOOD No comment entered. Ordering Provider: FRANCK TURNER Report Released Date/Time: Sep 02, 2024 04:29 PM Reporting Lab: [address] [address] Performing Lab: [address] [address] WBC 6.9 10*3/uL 5.0-10.0 RBC 3.48 10*6/uL [...] 02, 2024 04:29 PM Reporting Lab: [address] [address] Performing Lab: [address] [address] MAGNESIUM 1.7 mg/dL 1.6-2.6 Sep 03, 2024 [...] 02, 2024 04:29 PM Reporting Lab: [address] [address] Performing Lab: [address] [address] CREATININE 0.82 mg/dL 0.72-1.25 UREA NITROGEN 12 [...] BLOOD Comment: Prediabetes: 5.7%-6.4% Diabetes: >= 6.5% [facility] guidelines for A1c interpretation: Glycemic control targets are based on Shared Decision Making between clinicians and patients. Criteria used to establish an A1c target recommendation can be found at https://www.[place].gov/qualityandpatientsafety/ and include the use of result accuracy [...] 8.73 and 9.27. Ref: https://ngsp.org/CAPdata.asp. The in-house [employer] Surgical-Attention Point D-100 analyzer has a historical CV <= 2%. Contact the laboratory for further performance characteristics of this assay. Ordering Provider: FRANCK TURNER Report Released Date/Time: Sep 02, 2024 04:29 PM Reporting Lab: [address] [address] Performing Lab: [place] [phone] GLYCOHEMOGLOBIN 5.6 4.4-5.6 Sep 03, 2024 07:05 AM [facility] OSMOLALITY SERUM Specimen Type: SERUM No comment entered. Ordering Provider: FRANCK TURNER Report Released Date/Time: Sep 02, 2024 04:44 PM Reporting Lab: [address] [address] Performing Lab: [address] [address] OSMOLALITY 271 mosm/kg L 280-300 Sep 02, 2024 08:15 PM [facility] GLUCOSE-HAND MONITOR CAPILLARY Specime n Type: CAPILLARY Comment: AAMIR DEXTER notified Test performed by: [id number] Meter #: [id number] Ordering Provider: FRANCK TURNER Report Released Date/Time: Sep 02, 2024 08:57 PM Reporting Lab: [address] [address] Performing Lab: [address] [address] GLUCOSE-HAND MONITOR 126 mg/dL H 71-99 Sep [...] may not indicate eradication success. Ordering Provider: FRACNK TURNER Report Released Date/Time: Sep 02, 2024 05:12 PM Reporting Lab: [address] [address] Performing Lab: [address] [address] MRSA SURVL NARES DNA Negative Negative Sep 02, 2024 05:36 PM [facility] GLUCOSE-HAND MONITOR CAPILLARY Specime n Type: CAPILLARY Comment: Test performed by: [id number] Meter #: [id number] Ordering Provider: FRANCK TURNER Report Released Date/Time: Sep 02, 2024 05:53 PM Reporting Lab: [address] [address] Performing Lab: [address] [address] GLUCOSE-HAND MONITOR 127 mg/dL H 71-99 Aug 29, 2024 10:04 PM [facility] URINALYSIS WITH REFLEX TO CULTURE URINE Specimen Type: URINE Comment: ~For Test: URINALYSIS WITH REFLEX TO CULTURE ~REORDER Ordering Provider: FELISA COLE Report Released Date/Time: Aug 29, 2024 09:36 PM Reporting Lab: [address] [address] Performing Lab: [address] [address] URINE COLOR Yellow Colorless-Yellow APPEARANCE Clear Clear [...] /[LPF] 0-28 Aug 29, 2024 08:32 PM [facility] HIGH SENSITIVITY TROPONIN I [...] <15 G5 Kidney failure Ordering Provider: FELISA CLOE Report Released Date/Time: Aug 29, 2024 07:55 PM Reporting Lab: [address] [address] Performing Lab: [address] [address] HIGH SENSITIVITY TROPONIN I 7 4-35 Aug 29, 2024 08:32 PM [facility] CBC/PLT BLOOD Specimen Type: BLOOD No comment entered. Ordering Provider: FELISA COLE Report Released Date/Time: Aug 29, 2024 07:55 PM Reporting Lab: [address] [address] Performing Lab: [address] [address] WBC 11.2 10*3/uL H 5.0-10.0 RBC 3.97 10*6/uL L 4.6-6.2 HGB 10.9 g/dL L 14.0-18.0 HCT 33.5 L 42.0-52.0 MCV 84.4 fL 80.0-94.0 MCH 27.5 pg 27.0-31.0 MCHC 32.5 g/dL 32.0-36.0 PLT 230 10*3/uL 150-450 MPV 10.2 fL 9.0-13.1 RDW 14.6 11.0-16.0 NRBC 0.0 0.0-0.0 Aug 29, 2024 08:32 PM [facility] PANEL 5 PLASMA Specimen [...] 29, 2024 07:55 PM Reporting Lab: [address] [address] Performing Lab: [address] [address] CREATININE 0.85 mg/dL 0.72-1.25 UREA NITROGEN 15 [...] 08, 2024 ADVANCE DIRECTIVE DISCUSSION [facility] Radiology Reports: +/- 30 days of [...] BRAIN W & W/O: LUIS MANUEL PERDOMO [id number] -1945 M Exm Date: SEP 06, 2024@13:40 Req Phys: FRANCK TURNER Pat Loc: 5-MED/TEL/09-06-2024@19:09 Img Loc: [facility] Service: [place] [address] (Case [id number] COMPLETE) MRI BRAIN W & W/O (MRI Detailed) CPT:76993 Contrast Media : Gadolinium Reason for Study: SEE CLINICAL HISTORY Pharmaceutical: GADOTERIDOL 279.3MG/ML 20ML INJ, 19ml Clinical History: MRI Screening (Required): IMPLANTED DEVICE DOCUMENTATION IMPLANTED DEVICE DOCUMENTATION NOT FOUND Does the have any Cardiac Implants? None Does the have any implanted stimulators? None Does the Dyke have cochlear implants? No Does the have [...] 06, 2024 Date Verified: SEP 06, 2024 Street Engineer E-Sig: Report: MRI brain without and [...] Staff: ARCENIO LEYVA, Staff Radiologist Verified by coater for ARCENIO LEYVA /ARCENIO AVILA-CDD [facility] Sep 06, 2024 01:40 PM MRI C SPINE W & W/ O CONTRAST(FURTHER SEQUENCES): LUIS MANUEL PERDOMO [id number] -1945 M Exm Date: SEP 06, 2024@13:40 Req Phys: FRANCK TURNERSav Pat Loc: 5-MED/TEL/09-07-2024@06:42 Img Loc: [facility] Service: [place] [address] (Case [id number] COMPLETE) MRI C SPINE W & W/O CONTRAST(FURT(MRI Detailed) CPT:97740 Contrast Media : Gadolinium Reason for Study: [...] the have cochlear implants? No Does the Dyke have Cerebral aneurysm clip(s)? I don't know [...] 07, 2024 Date Verified: SEP 07, 2024 Street Engineer E-Sig: Report: EXAMINATION: MRI OF THE [...] Interpreting Staff: HUANG TAI, Radiologist Verified by coater for HUANG TAI /HUANG WHEATLEY-Sav [facility] Sep 03, 2024 10:45 AM CHEST SINGLE(1) EW: LUIS MANUEL PERDOMO [id number] -1945 M Exm Date: SEP 03, 2024@10:45 Req Phys: FRANCK TURNER Pat Loc: 5-MED/TEL/09-03-2024@10:56 Img Loc: [facility] RADIOLOGY Service: [place] [address] (Case [id number] COMPLETE)CHEST SINGLE(1) VIEW (RAD Detailed) CPT:08481 Proc Modifiers : PORTABLE EXAM Reason for Study: Eval volume status Clinical History: Report Status: Verified Date Reported: SEP 03, 2024 Date Verified: SEP 03, 2024 Street Engineer E-Sig: Report: EXAMINATION: SINGLE VIEW CHEST [...] Interpreting Staff: HUANG TAI, Radiologist Verified by coater for HUANG TAI /HUANG WHEATLEY-D [facility] Aug 29, 2024 08:[address] HEAD W/O CONT: LUIS MANUEL PERDOMO FABIAN [id number] -1945 M Exm Date: AUG 29, 2024@20:28 Req Phys: FELISA COLE Loc: ED/4P-12A (Req'g Loc) Img Loc: CT SCAN Service: Unknown [place] [id number] (Case [id number] COMPLETE) CT HEAD W/O CONT (CT Detailed) CPT:12348 Reason for Study: SEE CLINICAL HISTORY Clinical History: REASON FOR SEND OUT: ATTENDING PHYSICIAN NAME: New transient neurological s/s - suspected TIA HISTORY/REASON FOR EXAM: confusion Report Status: Verified Date Reported: AUG 29, 2024 Date Verified: AUG 29, 2024 Street Engineer E-Sig: Report: HISTORY confusion COMPARISON No [...] Staff: ABDIRAHMAN CROW, Staff Physician Verified by coater for ABDIRAHMAN CROW /GUERITA CROW,ABDIRAHMAN RUBI-D [facility] [...] Reporting Lab: [facility] [CLIA# [id number]] [address] [place] [id number] Accession [UID]: [id number] [[id number]] Received: Sep 03, 2024@14:02 Collection sample: URINE, [...] Performed By: [facility] [CLIA# [id number]] [address] [place] [id number] MAG[facility]RESE [facility] Sep 02, 2024 06:00 PM LR MICROBIOLOGY RE PORT: Reporting Lab: [facility] [CLIA# [id number]] [address] [place] [address] Accession [UID]: [id number] [[id number]] Received: Sep 02, 2024@18:07 Collection sample: BLD CULTURE BOTTLES Collection date: Sep 02, 2024 18:00 Site/Specimen: BLOOD Provider: FRANCK TURNER Comment on specimen: L HAND Test(s) ordered: CULTURE, BLOOD................ completed: Sep 08, 2024 * BACTERIOLOGY FINAL REPORT => Sep 08, 2024 08:25 TECH CODE: [id number] Bacteriology Remark(s): Blood culture status=NO GROWTH (unless notified otherwise) 09/03/2024 AEROBIC: NO GROWTH ANAEROBIC: NO GROWTH =--=--=--=--=--=--=--=--=--=-- =--=--=--=--=--=--=--=--=--=-- =--=--=--=--=--=-- Performing Laboratory: Bacteriology Report Performed By: [facility] [CLIA# [id number]] [address] [place] [address] MAGDY CALABRESE [facility] Aug 29, 2024 10:18 PM LR MICROBIOLOGY RE PORT: Reporting Lab: [facility] [CLIA# [id number]] [address] [place] [address] Accession [UID]: [id number] [[id number]] Received: Aug 29, 2024@22:18 Collection sample: URINE, CLEAN CATCH Collection date: Aug 29, 2024 22:18 Site/Specimen: URINE Provider: FELISA COLE Test(s) ordered: CULTURE, URINE................ completed: Aug 31, 2024 09:51 * BACTERIOLOGY FINAL REPORT => Aug 31, 2024 09:51 TECH CODE: [id number] Bacteriology Remark(s): NO GROWTH 08/30/2024 <10,000 CFU/ML. 08/31/2024 =--=--=--=--=--=--=--=--=--=-- =--=--=--=--=--=--=--=--=--=-- =--=--=--=--=--=-- Performing Laboratory: Bacteriology Report Performed By: [facility] [CLIA# [id number]] [address] [place] [address] MAGDY CALABRESE-[facility]
--- OUTSIDE RECORDS SUMMARY | 2024-09-06 17:44 | XMS_ITS ---
[place] DAILY HOSPITALIZATION DATA [facility] Encounter Summary Created on: September 22, 2024 LUIS MANUEL PERDOMO : 1945 Sex: Male Author Name [facility] Organization [facility] Address [address] [place] [address] Care Team Providers Care Senior Project Controls Specialist Name Role Phone YULISSA HENDERSON Primary [...] PLAN F Mar 24, 2014 PLAN F [id number] LUIS MANUEL PERDOMO PATIENT [facility] [place] [facility] PREFERRED PROVIDER ORGANIZAT ION (PPO) [facility] SLE Sep 21, 2012 [id number] [phone] LUIS MANUEL PERDOMO PATIENT [employer] ([id number]) PRESCRIPT ION [id number] Sep 21, 2012 [id number] LUIS MANUEL PERDOMO PATIENT MEDICARE (WNR) MEDICARE (M) PART B Sep 21, 2012 PART B [id number] [id number] NOEMI PERDOMO PATIENT MEDICARE (WNR) MEDICARE (M) PART A Jan 22, 2011 PART A [id number] [phone] [id number] LEANNE, NOEMI PATIENT MEDICARE PART D (WNR) MEDICARE (M) PART D Mar 24, 2014 PART D [id number] LUIS MANUEL PERDOMO PATIENT Selected Encounter This section includes the information on record at [place] for the Encounter. Date/Time Encounter Type Encounter Description Reason Pro vider Source Sep 06, 2024 09:44 PM Inpatient Visit DAILY HOSPITALIZATION DATA [facility] Encounter Template Text not used by SD Plan of Treatment: Future Appointments (+ 6 months) and Future Tests (+/- 45 days) The Plan of Treatment section includes future care activities for the patient [facility] [place] [facility] This section includes future appointments and [...] 13, 2024 08:00 AM [facility] - NONE [facility] Sep 30, 2024 01:30 PM [facility]BULATORY - SURGERY [facility] Active, Pending, and Scheduled Orders This section includes a listing of several types of active, pending, and scheduled orders, including clinic medications orders, diagnostic test orders, procedure orders and consult orders; where the start date of the order is 45 days before the date of the Encounter or 45 days after the date of theEncounter. The data comes from all [facility] facilities. Test Date/Time Test Type Test Details Facility Name Sep 13, 2024 01:33 PM Consult Order [facility] Cons [employer] [facility] Lab Results: +/- [...] 09, 2024 12:16 PM [facility] GLUCOSE-HAND MONITOR CAPILLARY Specimen Type: CAPILLARY Comment: Test performed by: [id number] Meter #: [id number] Ordering Provider: FRANCK TURNER Report Released Date/Time: Sep 09, 2024 12:33 PM Reporting Lab: [address] [address] Performing Lab: [address] [address] GLUCOSE-HAND MONITOR 116 mg/dL H Sep 09, 2024 06:07 AM [facility] GLUCOSE-HAND MONITOR CAPILLARY Specime n Type: CAPILLARY Comment: Test performed by: [id number] Meter #: [id number] Ordering Provider: FRANCK TURNER Report Released Date/Time: Sep 09, 2024 08:17 AM Reporting Lab: [address] [address] Performing Lab: [address] [address] GLUCOSE-HAND MONITOR 112 mg/dL H Sep 08, 2024 09:13 PM [facility] GLUCOSE-HAND MONITOR CAPILLARY Specime n Type: CAPILLARY Comment: Test performed by: [id number] Meter #: [id number] Ordering Provider: FRANCK TURNER Report Released Date/Time: Sep 08, 2024 09:31 PM Reporting Lab: [address] [address] Performing Lab: [address] [address] GLUCOSE-HAND MONITOR 107 mg/dL H Sep 08, 2024 03:49 PM [facility] GLUCOSE-HAND MONITOR CAPILLARY Specime n Type: CAPILLARY Comment: AAMIR RN notified Test performed by: [id number] Meter #: [id number] Ordering Provider: FRANCK TURNER Report Released Date/Time: Sep 08, 2024 04:33 PM Reporting Lab: [address] [address] Performing Lab: [address] [address] GLUCOSE-HAND MONITOR 162 mg/dL H Sep 08, 2024 11:43 AM [facility] GLUCOSE-HAND MONITOR CAPILLARY Specime n Type: CAPILLARY Comment: AAMIR RN notified Test performed by: [id number] Meter #: [id number] Ordering Provider: FRANCK TURNER Report Released Date/Time: Sep 08, 2024 12:03 PM Reporting Lab: [address] [address] Performing Lab: [address] [address] GLUCOSE-HAND MONITOR 133 mg/dL H Sep 08, 2024 06:13 AM [facility] GLUCOSE-HAND MONITOR CAPILLARY Specime n Type: CAPILLARY Comment: Test performed by: [id number] Meter #: [id number] Ordering Provider: FRANCK TURNER Report Released Date/Time: Sep 08, 2024 06:46 AM Reporting Lab: [address] [address] Performing Lab: [address] [address] GLUCOSE-HAND MONITOR 104 mg/dL H Sep 07, 2024 07:59 PM [facility] GLUCOSE-HAND MONITOR CAPILLARY Specime n Type: CAPILLARY Comment: Test performed by: [id number] Meter #: [id number] Ordering Provider: FRANCK TURNER Report Released Date/Time: Sep 07, 2024 09:05 PM Reporting Lab: [address] [address] Performing Lab: [address] [address] GLUCOSE-HAND MONITOR 107 mg/dL H Sep 07, 2024 04:39 PM [facility] GLUCOSE-HAND MONITOR CAPILLARY Specime n Type: CAPILLARY Comment: Test performed by: [id number] Meter #: [id number] Ordering Provider: FRANCK TURNER Report Released Date/Time: Sep 07, 2024 05:09 PM Reporting Lab: [address] [address] Performing Lab: [address] [address] GLUCOSE-HAND MONITOR 105 mg/dL H Sep 07, 2024 11:41 AM [facility] GLUCOSE-HAND MONITOR CAPILLARY Specime n Type: CAPILLARY Comment: Test performed by: [id number] Meter #: [id number] Ordering Provider: FRANCK TURNER Report Released Date/Time: Sep 07, 2024 12:41 PM Reporting Lab: [address] [address] Performing Lab: [address] [address] GLUCOSE-HAND MONITOR 144 mg/dL H Sep 07, 2024 05:56 AM [facility] GLUCOSE-HAND MONITOR CAPILLARY Specime n Type: CAPILLARY Comment: Test performed by: [id number] Meter #: [id number] Ordering Provider: FRANCK TURNER Report Released Date/Time: Sep 07, 2024 06:31 AM Reporting Lab: [address] [address] Performing Lab: [address] [address] GLUCOSE-HAND MONITOR 96 mg/dL Sep 06, 2024 08:10 PM [facility] GLUCOSE-HAND MONITOR CAPILLARY Specime n Type: CAPILLARY Comment: Test performed by: [id number] Meter #: [id number] Ordering Provider: FRANCK TURNER Report Released Date/Time: Sep 06, 2024 08:52 PM Reporting Lab: [address] [address] Performing Lab: [address] [address] GLUCOSE-HAND MONITOR 124 mg/dL H Sep 06, 2024 04:27 PM [facility] GLUCOSE-HAND MONITOR CAPILLARY Specime n Type: CAPILLARY Comment: Test performed by: [id number] Meter #: [id number] Ordering Provider: FRANCK TURNER Report Released Date/Time: Sep 06, 2024 05:15 PM Reporting Lab: [address] [address] Performing Lab: [address] [address] GLUCOSE-HAND MONITOR 107 mg/dL H Sep 06, 2024 12:12 PM [facility] GLUCOSE-HAND MONITOR CAPILLARY Specime n Type: CAPILLARY Comment: Test performed by: [id number] Meter #: [id number] Ordering Provider: FRANCK TURNER Report Released Date/Time: Sep 06, 2024 12:29 PM Reporting Lab: [address] [address] Performing Lab: [address] [address] GLUCOSE-HAND MONITOR 181 mg/dL H -Sep 06, 2024 06:13 AM [facility] GLUCOSE-HAND MONITOR CAPILLARY Specime n Type: CAPILLARY Comment: Test performed by: [id number] Meter #: [id number] Ordering Provider: FRANCK TURNER Report Released Date/Time: Sep 06, 2024 06:36 AM Reporting Lab: [address] [address] Performing Lab: [address] [address] GLUCOSE-HAND MONITOR 102 mg/dL H Sep 05, 2024 08:47 PM [facility] GLUCOSE-HAND MONITOR CAPILLARY Specime n Type: CAPILLARY Comment: Test performed by: [id number] Meter #: [id number] Ordering Provider: FRANCK TURNER Report Released Date/Time: Sep 06, 2024 02:13 AM Reporting Lab: [address] [address] Performing Lab: [address] [address] GLUCOSE-HAND MONITOR 103 mg/dL H Sep 05, 2024 04:40 PM [facility] GLUCOSE-HAND MONITOR CAPILLARY Specime n Type: CAPILLARY Comment: AAMIR RN notified Test performed by: [id number] Meter #: [id number] Ordering Provider: FRANCK TURNER Report Released Date/Time: Sep 05, 2024 05:11 PM Reporting Lab: [address] [address] Performing Lab: [address] [address] GLUCOSE-HAND MONITOR 113 mg/dL H Sep 05, 2024 12:06 PM [facility] GLUCOSE-HAND MONITOR CAPILLARY Specime n Type: CAPILLARY Comment: Test performed by: [id number] Meter #: [id number] Ordering Provider: FRANCK TURNER Report Released Date/Time: Sep 05, 2024 12:23 PM Reporting Lab: [address] [address] Performing Lab: [address] [address] GLUCOSE-HAND MONITOR 115 mg/dL H Sep 05, 2024 06:26 AM [facility] GLUCOSE-HAND MONITOR CAPILLARY Specime n Type: CAPILLARY Comment: AAMIR Correction Dose Test performed by: [id number] Meter #: [id number] Ordering Provider: FRANCK TURNER Report Released Date/Time: Sep 05, 2024 06:43 AM Reporting Lab: [address] [address] Performing Lab: [address] [address] GLUCOSE-HAND MONITOR 111 mg/dL H Sep 04, 2024 08:59 PM [facility] GLUCOSE-HAND MONITOR CAPILLARY Specime n Type: CAPILLARY Comment: AAMIR RN notified Test performed by: [id number] Meter #: [id number] Ordering Provider: FRANCK TURNER Report Released Date/Time: Sep 04, 2024 09:36 PM Reporting Lab: [address] [address] Performing Lab: [address] [address] GLUCOSE-HAND MONITOR 123 mg/dL H Sep 04, 2024 04:41 PM [facility] GLUCOSE-HAND MONITOR CAPILLARY Specime n Type: CAPILLARY Comment: AAMIR RN notified Test performed by: [id number] Meter #: [id number] Ordering Provider: FRANCK TURNER Report Released Date/Time: Sep 04, 2024 05:03 PM Reporting Lab: [address] [address] Performing Lab: [address] [address] GLUCOSE-HAND MONITOR 118 mg/dL H Sep 04, 2024 12:36 PM [facility] GLUCOSE-HAND MONITOR CAPILLARY Specime n Type: CAPILLARY Comment: AAMIR RN notified Test performed by: [id number] Meter #: [id number] Ordering Provider: FRANCK TURNER Report Released Date/Time: Sep 04, 2024 12:53 PM Reporting Lab: [address] [address] Performing Lab: [place] [address] GLUCOSE-HAND MONITOR 129 mg/dL H 71-99 Sep 04, 2024 12:03 PM [facility] RESPIRATORY VIRUS PANEL (BIOFIRE) NASOPHARYN X Specimen Type: NASOPHARYNX Comment: ~For Test: RESPIRATORY VIRUS PANEL (BIOFIRE) ~ORDER READ BACK TO: FRANCK TURNER 09/04/24@11:30 Ordering Provider: FRANCK TURNER Report Released Date/Time: Sep 04, 2024 11:33 AM Reporting Lab: [place] [phone] Performing Lab: [place] [phone] ADENOVIRUS (BIOFIRE) Not Detected -Not D etected [...] Sep 04, 2024 06:55 AM [facility] MAGNESIUM PLASMA Specimen Type: PLASM A Comment: [...] 11:10 AM Reporting Lab: [place] [facility] [address] [facility] [address] Performing Lab: [place] [id number] [facility] [address] MAGNESIUM 1.8 mg/dL 1.6-2.6 Sep 04, 2024 06:55 AM [facility] PANEL 1 PLASMA Specimen Type: PLASM A [...] 03, 2024 11:10 AM Reporting Lab: [address] [address] Performing Lab: [address] CREATININE 0.75 mg/dL 0.72-1.25 UREA NITROGEN 13 mg/dL 9-25 GLUCOSE 105 mg/dL H 74-100 SODIUM 128 mmol/L L 136-145 POTASSIUM 3.9 mmol/L 3.5-5.1 CHLORIDE 99 mmol/L 98-107 CO2 21 mmol/L L 22-29 CALCIUM 8.0 mg/dL L 8.4-10.2 ANION GAP 8 meq/L 3-19 eGFR (CKD-EPI) >90 Sep 04, 2024 06:02 AM [facility] GLUCOSE-HAND MONITOR CAPILLARY Specime n Type: CAPILLARY Comment: Test performed by: [id number] Meter #: [id number] Ordering Provider: FRANCK TURNER Report Released Date/Time: Sep 04, 2024 06:28 AM Reporting Lab: [address] Performing Lab: [address] GLUCOSE-HAND MONITOR 114 mg/dL H 71-99 Sep 03, 2024 05:19 PM [facility] GLUCOSE-HAND MONITOR CAPILLARY Specime n Type: CAPILLARY Comment: Test performed by: [id number] Meter #: [id number] Ordering Provider: FRANCK TURNER Report Released Date/Time: Sep 03, 2024 05:37 PM Reporting Lab: [address] Performing Lab: [address] [address] GLUCOSE-HAND MONITOR 124 mg/dL H 71-99 Sep 03, 2024 04:41 PM [facility] GLUCOSE-HAND MONITOR CAPILLARY Specime n Type: CAPILLARY Comment: Test performed by: [id number] Meter #: [id number] Ordering Provider: FRANCK TURNER Report Released Date/Time: Sep 03, 2024 06:09 PM Reporting Lab: [address] [address] Performing Lab: [address] [address] GLUCOSE-HAND MONITOR 112 mg/dL H 71-99 Sep 03, 2024 01:35 PM [facility] CREATININE URINE Specimen Type: URINE Comment: ~Altered mental status with no identifiable cause Ordering Provider: FRANCK TURNER Report Released Date/Time: Sep 02, 2024 04:44 PM Reporting Lab: [facility] [address] [place] [address] Performing Lab: [address] [address] CREATININE 150.9 mg/dL Sep 03, 2024 01:35 PM [facility] URINE LYTES URINE Specimen Type : URINE Comment: ~Altered mental status with no identifiable cause Ordering Provider: FRANCK TURNER Report Released Date/Time: Sep 02, 2024 04:44 PM Reporting Lab: [address] [address] Performing Lab: [address] [address] SODIUM 130 mmol/L POTASSIUM 47.6 mmol/L CHLORIDE 137 mmol/L Sep 03, 2024 01:35 PM [facility] UREA NITROGEN URINE Specimen Type : URINE Comment: ~Altered mental status with no identifiable cause Ordering Provider: FRANCK TURNER Report Released Date/Time: Sep 02, 2024 04:44 PM Reporting Lab: [address] [address] Performing Lab: [address] [address] UREA NITROGEN 320 mg/dL Sep 03, 2024 01:35 PM [facility] URINALYSIS WITH REFLEX TO CULTURE URINE Specimen Type: URINE Comment: ~Altered mental status with no identifiable cause Ordering Provider: FRANCK TURNER Report Released Date/Time: Sep 02, 2024 04:44 PM Reporting Lab: [address] [address] Performing Lab: [address] [address] URINE COLOR Yellow Colorless-Yellow APPEARANCE CLOUDY H [...] Sep 03, 2024 01:35 PM [facility] OSMOLALITY URINE Specimen Type: URINE Comment: ~Altered mental status with no identifiable cause Ordering Provider: FRANCK TURNER Report Released Date/Time: Sep 02, 2024 04:44 PM Reporting Lab: [place] [phone] Performing Lab: [place] [phone] OSMOLALITY 522 mosm/kg 38-1400 Sep 03, 2024 11:58 AM [facility] GLUCOSE-HAND MONITOR CAPILLARY Specime n Type: CAPILLARY Comment: AAMIR RN notified Test performed by: [id number] Meter #: [id number] Ordering Provider: FRANCK TURNER Report Released Date/Time: Sep 03, 2024 12:15 PM Reporting Lab: [address] [address] Performing Lab: [address] [address] GLUCOSE-HAND MONITOR 135 mg/dL H Sep 03, 2024 07:09 AM [facility] GLUCOSE-HAND MONITOR CAPILLARY Specime n Type: CAPILLARY Comment: Test performed by: [id number] Meter #: [id number] Ordering Provider: FRANCK TURNER Report Released Date/Time: Sep 03, 2024 07:26 AM Reporting Lab: [address] [address] Performing Lab: [address] [address] GLUCOSE-HAND MONITOR 120 mg/dL H Sep 03, 2024 07:05 AM [facility] CBC/PLT BLOOD Specimen Type: BLOOD No comment entered. Ordering Provider: FRANCK TURNER Report Released Date/Time: Sep 02, 2024 04:29 PM Reporting Lab: [address] [address] Performing Lab: [address] [address] WBC 6.9 10*3/uL 5.0-10.0 RBC 3.48 10*6/uL L 4.6-6.2 HGB 9.5 g/dL L 14.0-18.0 HCT 29.1 L 42.0-52.0 MCV 83.6 fL 80.0-94.0 MCH 27.3 pg 27.0-31.0 MCHC 32.6 g/dL 32.0-36.0 PLT 258 10*3/uL 150-450 MPV 10.3 fL 9.0-13.1 RDW 14.8 11.0-16.0 NRBC 0.0 0.0-0.0 Sep 03, 2024 07:05 AM [facility] MAGNESIUM PLASMA Specimen Type: PLASM A Comment: [...] 02, 2024 04:29 PM Reporting Lab: [address] [address] Performing Lab: [address] [address] MAGNESIUM 1.7 mg/dL 1.6-2.6 Sep 03, 2024 07:05 AM [facility] PANEL 1 PLASMA Specimen Type: PLASM A [...] 02, 2024 04:29 PM Reporting Lab: [address] [address] Performing Lab: [address] [address] CREATININE 0.82 mg/dL 0.72-1.25 UREA NITROGEN 12 mg/dL 9-25 GLUCOSE 109 mg/dL H 74-100 SODIUM 129 mmol/L L 136-145 POTASSIUM 4.2 mmol/L 3.5-5.1 CHLORIDE 99 mmol/L 98-107 CO2 21 mmol/L L 22-29 CALCIUM 8.1 mg/dL L 8.4-10.2 ANION GAP 9 meq/L 3-19 eGFR (CKD-EPI) 90 Sep 03, 2024 07:05 AM [facility] GLYCOHEMOGLOBIN BLOOD Specimen Type: BLOOD Comment: Prediabetes: 5.7%-6.4% Diabetes: >= 6.5% [facility] guidelines for A1c interpretation: Glycemic control targets are based on Shared Decision Making between clinicians and patients. Criteria used to establish an A1c target recommendation can be found at https://www.[place].gov/qualityandpatientsafety/ and include the use of result accuracy [...] 8.73 and 9.27. Ref: https://ngsp.org/CAPdata.asp. The in-house JouleX-Pelago D-100 analyzer has a historical CV <= 2%. Contact the laboratory for further performance characteristics of this assay. Ordering Provider: FRANCK TURNER Report Released Date/Time: Sep 02, 2024 04:29 PM Reporting Lab: [address] [address] Performing Lab: [place] [phone] GLYCOHEMOGLOBIN 5.6 4.4-5.6 Sep 03, 2024 07:05 AM [facility] OSMOLALITY SERUM Specimen Type: SERUM No comment entered. Ordering Provider: FRANCK TURNER Report Released Date/Time: Sep 02, 2024 04:44 PM Reporting Lab: [address] [address] Performing Lab: [address] [address] OSMOLALITY 271 mosm/kg L 280-300 Sep 02, 2024 08:15 PM [facility] GLUCOSE-HAND MONITOR CAPILLARY Specime n Type: CAPILLARY Comment: AAMIR DEXTER notified Test performed by: [id number] Meter #: [id number] Ordering Provider: FRANCK TURNER Report Released Date/Time: Sep 02, 2024 08:57 PM Reporting Lab: [address] [address] Performing Lab: [address] [address] GLUCOSE-HAND MONITOR 126 mg/dL H 71-99 Sep 02, 2024 06:10 PM [facility] MRSA SURVL NARES DNA NARES Specime n [...] 02, 2024 05:12 PM Reporting Lab: [address] [address] Performing Lab: [address] [address] MRSA SURVL NARES DNA Negative Negative Sep 02, 2024 05:36 PM [facility] GLUCOSE-HAND MONITOR CAPILLARY Specime n Type: CAPILLARY Comment: Test performed by: [id number] Meter #: [id number] Ordering Provider: FRANCK TURNER Report Released Date/Time: Sep 02, 2024 05:53 PM Reporting Lab: [address] [address] Performing Lab: [address] [address] GLUCOSE-HAND MONITOR 127 mg/dL H 71-99 Aug 29, 2024 10:04 PM [facility] URINALYSIS WITH REFLEX TO CULTURE URINE Specimen Type: URINE Comment: ~For Test: URINALYSIS WITH REFLEX TO CULTURE ~REORDER Ordering Provider: FELISA COLE Report Released Date/Time: Aug 29, 2024 09:36 PM Reporting Lab: [address] [address] Performing Lab: [address] [address] URINE COLOR Yellow Colorless-Yellow APPEARANCE Clear Clear [...] /[LPF] 0-28 Aug 29, 2024 08:32 PM [facility]IGH SENSITIVITY TROPONIN I PLASMA Specimen [...] 29, 2024 07:55 PM Reporting Lab: [address] [address] Performing Lab: [address] [address] HIGH SENSITIVITY TROPONIN I 7 4-35 Aug 29, 2024 08:32 PM [facility] CBC/PLT BLOOD Specimen Type: BLOOD No comment entered. Ordering Provider: FELISA CLOE Report Released Date/Time: Aug 29, 2024 07:55 PM Reporting Lab: [address] [address] Performing Lab: [address] [address] WBC 11.2 10*3/uL H 5.0-10.0 RBC 3.97 10*6/uL L 4.6-6.2 HGB 10.9 g/dL L 14.0-18.0 HCT 33.5 L 42.0-52.0 MCV 84.4 fL 80.0-94.0 MCH 27.5 pg 27.0-31.0 MCHC 32.5 g/dL 32.0-36.0 PLT 230 10*3/uL 150-450 MPV 10.2 fL 9.0-13.1 RDW 14.6 11.0-16.0 NRBC 0.0 0.0-0.0 Aug 29, 2024 08:32 PM [facility] PAN[facility] 5 PLASMA Specimen Type: PLASM [...] 29, 2024 07:55 PM Reporting Lab: [address] [address] Performing Lab: [address] [address] CREATININE 0.85 mg/dL 0.72-1.25 UREA NITROGEN 15 [...] 93 % 0 [place] [facility] Sep 06, 2024 04:27 PM 97.5 F 67 /min 148/67 mm[Hg] 20 /min 93 % 0 [place] [facility] Sep 06, 2024 03:37 PM 0 [place] [facility] Sep 06, 2024 11:30 AM 0 [place] [facility] Sep 06, 2024 10:22 AM 97.4 F 71 /min 102/49 mm[Hg] 18 /min 93 % 0 [place] [facility] Advance Directives: All historical and current [...] 08, 2024 ADVANCE DIRECTIVE DISCUSSION [facility] Radiology Reports: +/- 30 days [...] BRAIN W & W/O: LUIS MANUEL PERDOMO [id number] -1945 M Exm Date: SEP 06, 2024@13:40 Req Phys: FRANCK TURNER Pat Loc: 5-MED/TEL/09-06-2024@19:09 Img Loc: [facility] Service: [place] [address] (Case [id number] COMPLETE) MRI BRAIN W & W/O (MRI Detailed) CPT:39095 Contrast Media : Gadolinium Reason for Study: SEE CLINICAL HISTORY Pharmaceutical: GADOTERIDOL 279.3MG/ML 20ML INJ, 19ml Clinical History: MRI Screening (Required): IMPLANTED DEVICE DOCUMENTATION IMPLANTED DEVICE DOCUMENTATION NOT FOUND Does the have any Cardiac Implants? None Does the have any implanted stimulators? None Does the [place] have cochlear implants? No Does the have [...] 06, 2024 Date Verified: SEP 06, 2024 Credit Card Clerk E-Sig: Report: MRI brain without and [...] Staff: ARCENIO LEYVA, Staff Radiologist Verified by producer assistant for ARCENIO LEYVA /ARCENIO AVILA-CDD [facility] Sep 06, 2024 01:40 PM MRI C SPINE W & W/ O CONTRAST(FURTHER SEQUENCES): LUIS MANUEL PERDOMO [id number] -1945 M Exm Date: SEP 06, 2024@13:40 Req Phys: FRANCK TURNERSav Pat Loc: 5-MED/TEL/09-07-2024@06:42 Img Loc: [facility] Service: [place] [address] (Case [id number] COMPLETE) MRI C SPINE W & W/O CONTRAST(FURT(MRI Detailed) CPT:31229 Contrast Media : Gadolinium Reason for Study: [...] the have cochlear implants? No Does the [place] have Cerebral aneurysm clip(s)? I don't know [...] 07, 2024 Date Verified: SEP 07, 2024 Credit Card Clerk E-Sig: Report: EXAMINATION: MRI OF THE [...] Interpreting Staff: HUANG TAI, Radiologist Verified by producer assistant for HUANG TAI /HUANG WHEATLEY-Sav [facility] Sep 03, 2024 10:45 AM CHEST SINGLE(1) EW: LUIS MANUEL PERDOMO [id number] -1945 M Exm Date: SEP 03, 2024@10:45 Req Phys: FRANKC TURNER Pat Loc: 5-MED/TEL/09-03-2024@10:56 Img Loc: [facility] Service: [place] [address] (Case [id number] COMPLETE)CHEST SINGLE(1) VIEW (RAD Detailed) CPT:06231 Proc Modifiers : PORTABLE EXAM Reason for Study: Eval volume status Clinical History: Report Status: Verified Date Reported: SEP 03, 2024 Date Verified: SEP 03, 2024 Credit Card Clerk E-Sig: Report: EXAMINATION: SINGLE VIEW CHEST [...] Interpreting Staff: HUANG TAI, Radiologist Verified by producer assistant for HUANG TAI /HUANG WHEATLEY-D [facility] Aug 29, 2024 08:[address] HEAD W/O CONT: LUIS MANUEL PERDOMO FABIAN [id number] -1945 M Exm Date: AUG 29, 2024@20:28 Req Phys: FELISA COLE Loc: ED/4P-12A (Req'g Loc) Img Loc: CT SCAN Service: Unknown [place] [id number] (Case [id number] COMPLETE) CT HEAD W/O CONT (CT Detailed) CPT:57245 Reason for Study: SEE CLINICAL HISTORY Clinical History: REASON FOR SEND OUT: ATTENDING PHYSICIAN NAME: New transient neurological s/s - suspected TIA HISTORY/REASON FOR EXAM: confusion Report Status: Verified Date Reported: AUG 29, 2024 Date Verified: AUG 29, 2024 Credit Card Clerk E-Sig: Report: HISTORY confusion COMPARISON No [...] Staff: ABDIRAHMAN CROW, Staff Physician Verified by producer assistant for ABDIRAHMAN CROW /GUERITA CROW,ABDIRAHMAN RUBI-D [facility] Pathology Reports: +/- 30 days of [...] PORT: Reporting Lab: [facility] [CLIA# [id number]] [address] [place] [id number] Accession [UID]: [id number] [[id number]] Received: Sep 03, 2024@14:02 Collection sample: URINE, [...] Report Performed By: [facility] [CLIA# [id number]] [address] [place] [id number] MAGDY CALABRESE [facility] Sep 02, 2024 06:00 PM LR MICROBIOLOGY RE PORT: Reporting Lab: [facility] [CLIA# [id number]] [address] [address] Accession [UID]: [id number] [[id number]] Received: Sep 02, 2024@18:07 Collection sample: BLD CULTURE BOTTLES Collection date: Sep 02, 2024 18:00 Site/Specimen: BLOOD Provider: FRANCK TURNER Comment on specimen: L HAND Test(s) ordered: CULTURE, BLOOD................ completed: Sep 08, 2024 * BACTERIOLOGY FINAL REPORT => Sep 08, 2024 08:25 TECH CODE: [id number] Bacteriology Remark(s): Blood culture status=NO GROWTH (unless notified otherwise) 09/03/2024 AEROBIC: NO GROWTH ANAEROBIC: NO GROWTH =--=--=--=--=--=--=--=--=--=-- =--=--=--=--=--=--=--=--=--=-- =--=--=--=--=--=-- Performing Laboratory: Bacteriology Report Performed By: [facility] [CLIA# [id number]] [address] [address] MAGDY CALABRESE [facility] Aug 29, 2024 10:18 PM LR MICROBIOLOGY RE PORT: Reporting Lab: [facility] [CLIA# [id number]] [address] [address] Accession [UID]: [id number] [[id number]] Received: Aug 29, 2024@22:18 Collection sample: URINE, CLEAN CATCH Collection date: Aug 29, 2024 22:18 Site/Specimen: URINE Provider: FELISA COLE Test(s) ordered: CULTURE, URINE................ completed: Aug 31, 2024 09:51 * BACTERIOLOGY FINAL REPORT => Aug 31, 2024 09:51 TECH CODE: [id number] Bacteriology Remark(s): NO GROWTH 08/30/2024 <10,000 CFU/ML. 08/31/2024 =--=--=--=--=--=--=--=--=--=-- =--=--=--=--=--=--=--=--=--=-- =--=--=--=--=--=-- Performing Laboratory: Bacteriology Report Performed By: [facility] [CLIA# [id number]] [address] [place] [address] MAGDY CALABRESE-[facility]
--- OUTSIDE RECORDS SUMMARY | 2024-09-06 18:11 | XMS_ITS ---
[place] DAILY HOSPITALIZATION DATA [facility] Encounter Summary Created on: September 22, 2024 LUIS MANUEL PERDOMO : 1945 Sex: Male Author Name [facility] ([place] Organization [facility] Address [address] [place] [address] Care Team Providers Care Site Reliability Engineer Name Role Phone YULISSA HENDERSON Primary [...] PLAN F Mar 24, 2014 PLAN F [id number] [phone] LUIS MANUEL PERDOMO PATIENT [facility] [place] [facility] PREFERRED PROVIDER ORGANIZAT ION (PPO) [facility] SLE Sep 21, 2012 [id number] [phone] LUIS MANUEL PERDOMO PATIENT [employer] ([id number]) PRESCRIPT ION WL3A Sep 21, 2012 [id number] LUIS MANUEL PERDOMO PATIENT MEDICARE (WNR) MEDICARE (M) PART B Sep 21, 2012 PART B [id number] NOEMI PERDOMO PATIENT MEDICARE (WNR) MEDICARE (M) PART A Jan 22, 2011 PART A [id number] LEANNE, NOEMI PATIENT MEDICARE PART D (WNR) MEDICARE (M) PART D Mar 24, 2014 PART D [id number] LUIS MANUEL PERDOMO PATIENT Selected Encounter This section includes the information on record at [place] for the Encounter. Date/Time Encounter Type Encounter Description Reason Pro vider Source Sep 06, 2024 10:11 PM Inpatient Visit DAILY HOSPITALIZATION DATA [facility] Encounter Template Text not used by [place] Plan of Treatment: Future Appointments (+ 6 months) and Future Tests (+/- 45 days) The Plan of Treatment section includes future care activities for the patient [facility] [place] [facility] This section includes future appointments and future orders which are active, pending or scheduled. Future Appointments This section includes appointments that were scheduled to occur 6 months from the date of the Encounter, up to a maximum of 20 appointments. The data comes from all [place] treatment facilities. Appointment Date/Time Appointment Type Appointme nt Facility Name Sep 13, 2024 08:00 AM AMBULATORY - NONE [facility] Sep 30, 2024 01:30 PM AMBULATORY - SURGERY [place] Active, Pending, and Scheduled Orders [...] [facility] Cons Switchboard Receptionist's Choice [facility] Lab Results: +/- 30 days of the encounter This section includes the Chemistry and Hematology Lab Results on record with [place] for the patient. Radiology Reports and Pathology Reports are provided separately, in subsequent sections. Lab Results This section contains the Chemistry/Hematology Results that were resulted 30 days before or 30 daysafter the date of the Encounter. Date/Time Source Result Type Result - Unit Interpretation Reference Range Specimen Type Comment Sep 09, 2024 12:16 PM [facility] GLUCOSE-HAND MONITOR CAPILLARY Specimen Type: CAPILLARY Comment: Test performed by: [id number] Meter #: [id number] Ordering Provider: FRANCK TURNER Report Released Date/Time: Sep 09, 2024 12:33 PM Reporting Lab: [address] [address] Performing Lab: [address] [address] GLUCOSE-HAND MONITOR 116 mg/dL H Sep 09, 2024 06:07 AM [facility] GLUCOSE-HAND MONITOR CAPILLARY Specime n Type: CAPILLARY Comment: Test performed by: [id number] Meter #: [id number] Ordering Provider: FRANCK TURNER Report Released Date/Time: Sep 09, 2024 08:17 AM Reporting Lab: [address] [address] Performing Lab: [address] [address] GLUCOSE-HAND MONITOR 112 mg/dL H Sep 08, 2024 09:13 PM [facility] GLUCOSE-HAND MONITOR CAPILLARY Specime n Type: CAPILLARY Comment: Test performed by: [id number] Meter #: [id number] Ordering Provider: FRANCK TURNER Report Released Date/Time: Sep 08, 2024 09:31 PM Reporting Lab: [address] [address] Performing Lab: [address] [address] GLUCOSE-HAND MONITOR 107 mg/dL H Sep 08, 2024 03:49 PM [facility] GLUCOSE-HAND MONITOR CAPILLARY Specime n Type: CAPILLARY Comment: AAMIR RN notified Test performed by: [id number] Meter #: [id number] Ordering Provider: FRANCK TURNER Report Released Date/Time: Sep 08, 2024 04:33 PM Reporting Lab: [address] [address] Performing Lab: [address] [address] GLUCOSE-HAND MONITOR 162 mg/dL H Sep 08, 2024 11:43 AM [facility] GLUCOSE-HAND MONITOR CAPILLARY Specime n Type: CAPILLARY Comment: AAMIR RN notified Test performed by: [id number] Meter #: [id number] Ordering Provider: FRANCK TURNER Report Released Date/Time: Sep 08, 2024 12:03 PM Reporting Lab: [address] [address] Performing Lab: [address] [address] GLUCOSE-HAND MONITOR 133 mg/dL H Sep 08, 2024 06:13 AM [facility] GLUCOSE-HAND MONITOR CAPILLARY Specime n Type: CAPILLARY Comment: Test performed by: [id number] Meter #: [id number] Ordering Provider: FRANCK TURNER Report Released Date/Time: Sep 08, 2024 06:46 AM Reporting Lab: [address] [address] Performing Lab: [address] [address] GLUCOSE-HAND MONITOR 104 mg/dL H Sep 07, 2024 07:59 PM [facility] GLUCOSE-HAND MONITOR CAPILLARY Specime n Type: CAPILLARY Comment: Test performed by: [id number] Meter #: [id number] Ordering Provider: FRANCK TURNER Report Released Date/Time: Sep 07, 2024 09:05 PM Reporting Lab: [address] [address] Performing Lab: [address] [address] GLUCOSE-HAND MONITOR 107 mg/dL H Sep 07, 2024 04:39 PM [facility] GLUCOSE-HAND MONITOR CAPILLARY Specime n Type: CAPILLARY Comment: Test performed by: [id number] Meter #: [id number] Ordering Provider: FRANCK TURNER Report Released Date/Time: Sep 07, 2024 05:09 PM Reporting Lab: [address] [address] Performing Lab: [address] [address] GLUCOSE-HAND MONITOR 105 mg/dL H Sep 07, 2024 11:41 AM [facility] GLUCOSE-HAND MONITOR CAPILLARY Specime n Type: CAPILLARY Comment: Test performed by: [id number] Meter #: [id number] Ordering Provider: FRANCK TURNER Report Released Date/Time: Sep 07, 2024 12:41 PM Reporting Lab: [address] [address] Performing Lab: [address] [address] GLUCOSE-HAND MONITOR 144 mg/dL H Sep 07, 2024 05:56 AM [facility] GLUCOSE-HAND MONITOR CAPILLARY Specime n Type: CAPILLARY Comment: Test performed by: [id number] Meter #: [id number] Ordering Provider: FRANCK TURNER Report Released Date/Time: Sep 07, 2024 06:31 AM Reporting Lab: [address] [address] Performing Lab: [address] [address] GLUCOSE-HAND MONITOR 96 mg/dL Sep 06, 2024 08:10 PM [facility] GLUCOSE-HAND MONITOR CAPILLARY Specime n Type: CAPILLARY Comment: Test performed by: [id number] Meter #: [id number] Ordering Provider: FRANCK TURNER Report Released Date/Time: Sep 06, 2024 08:52 PM Reporting Lab: [address] [address] Performing Lab: [address] [address] GLUCOSE-HAND MONITOR 124 mg/dL H Sep 06, 2024 04:27 PM [facility] GLUCOSE-HAND MONITOR CAPILLARY Specime n Type: CAPILLARY Comment: Test performed by: [id number] Meter #: [id number] Ordering Provider: FRANCK TURNER Report Released Date/Time: Sep 06, 2024 05:15 PM Reporting Lab: [address] [address] Performing Lab: [address] [address] GLUCOSE-HAND MONITOR 107 mg/dL H Sep 06, 2024 12:12 PM [facility] GLUCOSE-HAND MONITOR CAPILLARY Specime n Type: CAPILLARY Comment: Test performed by: [id number] Meter #: [id number] Ordering Provider: FRANCK TURNER Report Released Date/Time: Sep 06, 2024 12:29 PM Reporting Lab: [address] [address] Performing Lab: [address] [address] GLUCOSE-HAND MONITOR 181 mg/dL H -Sep 06, 2024 06:13 AM [facility] GLUCOSE-HAND MONITOR CAPILLARY Specime n Type: CAPILLARY Comment: Test performed by: [id number] Meter #: [id number] Ordering Provider: FRANCK TURNER Report Released Date/Time: Sep 06, 2024 06:36 AM Reporting Lab: [address] [address] Performing Lab: [address] [address] GLUCOSE-HAND MONITOR 102 mg/dL H Sep 05, 2024 08:47 PM [facility] GLUCOSE-HAND MONITOR CAPILLARY Specime n Type: CAPILLARY Comment: Test performed by: [id number] Meter #: [id number] Ordering Provider: FRANCK TURNER Report Released Date/Time: Sep 06, 2024 02:13 AM Reporting Lab: [address] [address] Performing Lab: [address] [address] GLUCOSE-HAND MONITOR 103 mg/dL H Sep 05, 2024 04:40 PM [facility] GLUCOSE-HAND MONITOR CAPILLARY Specime n Type: CAPILLARY Comment: AAMIR RN notified Test performed by: [id number] Meter #: [id number] Ordering Provider: FRANCK TURNER Report Released Date/Time: Sep 05, 2024 05:11 PM Reporting Lab: [address] [address] Performing Lab: [address] [address] GLUCOSE-HAND MONITOR 113 mg/dL H Sep 05, 2024 12:06 PM [facility] GLUCOSE-HAND MONITOR CAPILLARY Specime n Type: CAPILLARY Comment: Test performed by: [id number] Meter #: [id number] Ordering Provider: FRANCK TURNER Report Released Date/Time: Sep 05, 2024 12:23 PM Reporting Lab: [address] [address] Performing Lab: [address] [address] GLUCOSE-HAND MONITOR 115 mg/dL H Sep 05, 2024 06:26 AM [facility] GLUCOSE-HAND MONITOR CAPILLARY Specime n Type: CAPILLARY Comment: AAMIR Correction Dose Test performed by: [id number] Meter #: [id number] Ordering Provider: FRANCK TURNER Report Released Date/Time: Sep 05, 2024 06:43 AM Reporting Lab: [address] [address] Performing Lab: [address] [address] GLUCOSE-HAND MONITOR 111 mg/dL H Sep 04, 2024 08:59 PM [facility] GLUCOSE-HAND MONITOR CAPILLARY Specime n Type: CAPILLARY Comment: AAMIR RN notified Test performed by: [id number] Meter #: [id number] Ordering Provider: FRANCK TURNER Report Released Date/Time: Sep 04, 2024 09:36 PM Reporting Lab: [address] [address] Performing Lab: [address] [address] GLUCOSE-HAND MONITOR 123 mg/dL H Sep 04, 2024 04:41 PM [facility] GLUCOSE-HAND MONITOR CAPILLARY Specime n Type: CAPILLARY Comment: AAMIR RN notified Test performed by: [id number] Meter #: [id number] Ordering Provider: FRANCK TURNER Report Released Date/Time: Sep 04, 2024 05:03 PM Reporting Lab: [address] [address] Performing Lab: [address] [address] GLUCOSE-HAND MONITOR 118 mg/dL H Sep 04, 2024 12:36 PM [facility] GLUCOSE-HAND MONITOR CAPILLARY Specime n Type: CAPILLARY Comment: AAMIR RN notified Test performed by: [id number] Meter #: [id number] Ordering Provider: FRANCK TURNER Report Released Date/Time: Sep 04, 2024 12:53 PM Reporting Lab: [address] [address] Performing Lab: [place] [address] GLUCOSE-HAND MONITOR 129 mg/dL H 71-99 Sep 04, 2024 12:03 PM [facility] RESPIRATORY VIRUS PANEL (BIOFIRE) NASOPHARYN X Specimen Type: NASOPHARYNX Comment: ~For Test: RESPIRATORY VIRUS PANEL (BIOFIRE) ~ORDER READ BACK TO: FRANCK TURNER 09/04/24@11:30 Ordering Provider: FRANCK TURNER Report Released Date/Time: Sep 04, 2024 11:33 AM Reporting Lab: [place] [phone] Performing Lab: [place] [phone] ADENOVIRUS (BIOFIRE) Not Detected -Not D etected [...] -Not Detected Sep 04, 2024 06:55 AM [facility] MAGNESIUM PLASMA Specimen Type: PLASM [...] 03, 2024 11:10 AM Reporting Lab: [place] [facility] [address] [facility] [address] Performing Lab: [place] [address] [facility] [address] MAGNESIUM 1.8 mg/dL 1.6-2.6 Sep 04, 2024 06:55 AM [facility] PANEL 1 PLASMA Specimen Type: [...] Sep 03, 2024 11:10 AM Reporting Lab: [id number] [address] Performing Lab: [address] CREATININE 0.75 mg/dL 0.72-1.25 UREA NITROGEN 13 mg/dL 9-25 GLUCOSE 105 mg/dL H 74-100 SODIUM 128 mmol/L L 136-145 POTASSIUM 3.9 mmol/L 3.5-5.1 CHLORIDE 99 mmol/L 98-107 CO2 21 mmol/L L 22-29 CALCIUM 8.0 mg/dL L 8.4-10.2 ANION GAP 8 meq/L 3-19 eGFR (CKD-EPI) >90 Sep 04, 2024 06:02 AM [facility] GLUCOSE-HAND MONITOR CAPILLARY Specime n Type: CAPILLARY Comment: Test performed by: [id number] Meter #: [id number] Ordering Provider: FRANCK TURNER Report Released Date/Time: Sep 04, 2024 06:28 AM Reporting Lab: [address] Performing Lab: [address] GLUCOSE-HAND MONITOR 114 mg/dL H 71-99 Sep 03, 2024 05:19 PM [facility] GLUCOSE-HAND MONITOR CAPILLARY Specime n Type: CAPILLARY Comment: Test performed by: [id number] Meter #: [id number] Ordering Provider: FRANCK TURNER Report Released Date/Time: Sep 03, 2024 05:37 PM Reporting Lab: [address] Performing Lab: [address] [address] GLUCOSE-HAND MONITOR 124 mg/dL H 71-99 Sep 03, 2024 04:41 PM [facility] GLUCOSE-HAND MONITOR CAPILLARY Specime n Type: CAPILLARY Comment: Test performed by: [id number] Meter #: [id number] Ordering Provider: FRANCK TURNER Report Released Date/Time: Sep 03, 2024 06:09 PM Reporting Lab: [address] [address] Performing Lab: [address] [address] GLUCOSE-HAND MONITOR 112 mg/dL H 71-99 Sep 03, 2024 01:35 PM [facility] CREATININE URINE Specimen Type: URINE Comment: ~Altered mental status with no identifiable cause Ordering Provider: FRANCK TURNER Report Released Date/Time: Sep 02, 2024 04:44 PM Reporting Lab: [facility] [address] [place] [address] Performing Lab: [address] [address] CREATININE 150.9 mg/dL Sep 03, 2024 01:35 PM [facility] URINE LYTES URINE Specimen Type : URINE Comment: ~Altered mental status with no identifiable cause Ordering Provider: FRANCK TURNER Report Released Date/Time: Sep 02, 2024 04:44 PM Reporting Lab: [address] [address] Performing Lab: [address] [address] SODIUM 130 mmol/L POTASSIUM 47.6 mmol/L CHLORIDE 137 mmol/L Sep 03, 2024 01:35 PM [facility] UREA NITROGEN URINE Specimen Type : URINE Comment: ~Altered mental status with no identifiable cause Ordering Provider: FRANCK TURNER Report Released Date/Time: Sep 02, 2024 04:44 PM Reporting Lab: [address] [address] Performing Lab: [address] [address] UREA NITROGEN 320 mg/dL Sep 03, 2024 01:35 PM [facility] URINALYSIS WITH REFLEX TO CULTURE URINE Specimen Type: URINE Comment: ~Altered mental status with no identifiable cause Ordering Provider: FRANCK TURNER Report Released Date/Time: Sep 02, 2024 04:44 PM Reporting Lab: [address] [address] Performing Lab: [address] [address] URINE COLOR Yellow Colorless-Yellow APPEARANCE CLOUDY H [...] H 0-28 Sep 03, 2024 01:35 PM [facility] OSMOLALITY URINE Specimen Type: URINE Comment: ~Altered mental status with no identifiable cause Ordering Provider: FRANCK TURNER Report Released Date/Time: Sep 02, 2024 04:44 PM Reporting Lab: [place] [phone] Performing Lab: [place] [phone] OSMOLALITY 522 mosm/kg 38-1400 Sep 03, 2024 11:58 AM [facility] GLUCOSE-HAND MONITOR CAPILLARY Specime n Type: CAPILLARY Comment: AAMIR RN notified Test performed by: [id number] Meter #: [id number] Ordering Provider: FRANCK TURNER Report Released Date/Time: Sep 03, 2024 12:15 PM Reporting Lab: [address] [address] Performing Lab: [address] [address] GLUCOSE-HAND MONITOR 135 mg/dL H Sep 03, 2024 07:09 AM [facility] GLUCOSE-HAND MONITOR CAPILLARY Specime n Type: CAPILLARY Comment: Test performed by: [id number] Meter #: [id number] Ordering Provider: FRANCK TURNER Report Released Date/Time: Sep 03, 2024 07:26 AM Reporting Lab: [address] [address] Performing Lab: [address] [address] GLUCOSE-HAND MONITOR 120 mg/dL H Sep 03, 2024 07:05 AM [facility] CBC/PLT BLOOD Specimen Type: BLOOD No comment entered. Ordering Provider: FRANCK TURNER Report Released Date/Time: Sep 02, 2024 04:29 PM Reporting Lab: [address] [address] Performing Lab: [address] [address] WBC 6.9 10*3/uL 5.0-10.0 RBC 3.48 10*6/uL L 4.6-6.2 HGB 9.5 g/dL L 14.0-18.0 HCT 29.1 L 42.0-52.0 MCV 83.6 fL 80.0-94.0 MCH 27.3 pg 27.0-31.0 MCHC 32.6 g/dL 32.0-36.0 PLT 258 10*3/uL 150-450 MPV 10.3 fL 9.0-13.1 RDW 14.8 11.0-16.0 NRBC 0.0 0.0-0.0 Sep 03, 2024 07:05 AM [facility] MAGNESIUM PLASMA Specimen Type: PLASM [...] 02, 2024 04:29 PM Reporting Lab: [address] [address] Performing Lab: [address] [address] MAGNESIUM 1.7 mg/dL 1.6-2.6 Sep 03, 2024 07:05 AM [facility] PANEL 1 PLASMA Specimen Type: [...] 02, 2024 04:29 PM Reporting Lab: [address] [address] Performing Lab: [address] [address] CREATININE 0.82 mg/dL 0.72-1.25 UREA NITROGEN 12 mg/dL 9-25 GLUCOSE 109 mg/dL H 74-100 SODIUM 129 mmol/L L 136-145 POTASSIUM 4.2 mmol/L 3.5-5.1 CHLORIDE 99 mmol/L 98-107 CO2 21 mmol/L L 22-29 CALCIUM 8.1 mg/dL L 8.4-10.2 ANION GAP 9 meq/L 3-19 eGFR (CKD-EPI) 90 Sep 03, 2024 07:05 AM [facility] GLYCOHEMOGLOBIN BLOOD Specimen Type: BLOOD Comment: Prediabetes: 5.7%-6.4% Diabetes: >= 6.5% [facility] guidelines for A1c interpretation: Glycemic control [...] 8.73 and 9.27. Ref: https://ngsp.org/CAPdata.asp. The in-house PicApp-Neronote D-100 analyzer has a historical CV <= 2%. Contact the laboratory for further performance characteristics of this assay. Ordering Provider: FRANCK TURNER Report Released Date/Time: Sep 02, 2024 04:29 PM Reporting Lab: [address] [address] Performing Lab: [place] [phone] GLYCOHEMOGLOBIN 5.6 4.4-5.6 Sep 03, 2024 07:05 AM [facility] OSMOLALITY SERUM Specimen Type: SERUM No comment entered. Ordering Provider: FRANCK TURNER Report Released Date/Time: Sep 02, 2024 04:44 PM Reporting Lab: [address] [address] Performing Lab: [address] [address] OSMOLALITY 271 mosm/kg L 280-300 Sep 02, 2024 08:15 PM [facility] GLUCOSE-HAND MONITOR CAPILLARY Specime n Type: CAPILLARY Comment: AAMIR DEXTER notified Test performed by: [id number] Meter #: [id number] Ordering Provider: FRANCK TURNER Report Released Date/Time: Sep 02, 2024 08:57 PM Reporting Lab: [address] [address] Performing Lab: [address] [address] GLUCOSE-HAND MONITOR 126 mg/dL H 71-99 Sep 02, 2024 06:10 PM [facility] MRSA SURVL NARES DNA NARES [...] 02, 2024 05:12 PM Reporting Lab: [address] [address] Performing Lab: [address] [address] MRSA SURVL NARES DNA Negative Negative Sep 02, 2024 05:36 PM [facility] GLUCOSE-HAND MONITOR CAPILLARY Specime n Type: CAPILLARY Comment: Test performed by: [id number] Meter #: [id number] Ordering Provider: FRANCK TURNER Report Released Date/Time: Sep 02, 2024 05:53 PM Reporting Lab: [address] [address] Performing Lab: [address] [address] GLUCOSE-HAND MONITOR 127 mg/dL H 71-99 Aug 29, 2024 10:04 PM [facility] URINALYSIS WITH REFLEX TO CULTURE URINE Specimen Type: URINE Comment: ~For Test: URINALYSIS WITH REFLEX TO CULTURE ~REORDER Ordering Provider: FELISA COLE Report Released Date/Time: Aug 29, 2024 09:36 PM Reporting Lab: [address] [address] Performing Lab: [address] [address] URINE COLOR Yellow Colorless-Yellow APPEARANCE Clear Clear [...] /[LPF] 0-28 Aug 29, 2024 08:32 [facility] HIGH SENSITIVITY TROPONIN I PLASMA Specimen [...] 29, 2024 07:55 PM Reporting Lab: [address] [address] Performing Lab: [address] [address] HIGH SENSITIVITY TROPONIN I 7 4-35 Aug 29, 2024 08:32 PM [facility] CBC/PLT BLOOD Specimen Type: BLOOD No comment entered. Ordering Provider: FELISA COLE Report Released Date/Time: Aug 29, 2024 07:55 PM Reporting Lab: [address] [address] Performing Lab: [address] [address] WBC 11.2 10*3/uL H 5.0-10.0 RBC 3.97 10*6/uL L 4.6-6.2 HGB 10.9 g/dL L 14.0-18.0 HCT 33.5 L 42.0-52.0 MCV 84.4 fL 80.0-94.0 MCH 27.5 pg 27.0-31.0 MCHC 32.5 g/dL 32.0-36.0 PLT 230 10*3/uL 150-450 MPV 10.2 fL 9.0-13.1 RDW 14.6 11.0-16.0 NRBC 0.0 0.0-0.0 Aug 29, 2024 08:32 PM [facility] PAN[facility] 5 PLASMA Specimen Type: PLASM [...] 29, 2024 07:55 PM Reporting Lab: [address] [address] Performing Lab: [address] [address] CREATININE 0.85 mg/dL 0.72-1.25 UREA NITROGEN 15 [...] 18 /min 93 % 0 [place] Sep 06, 2024 04:27 PM 97.5 F 67 /min 148/67 mm[Hg] 20 /min 93 % 0 [place] Sep 06, 2024 03:37 PM 0 [place] Sep 06, 2024 11:30 AM 0 [place] Sep 06, 2024 10:22 AM 97.4 F 71 /min 102/49 mm[Hg] 18 /min 93 % 0 [place] Advance Directives: All historical and current Section Date Range: From patient's date of to the date document was created. This section includes ALL of a patient's completed or amended [place] Advance and Rescinded Directives. The entries below indicate that a directive exists for the patient, but an actual copy is not included with this document. The data comes from all [place] facilities. Date Advance Directives Provider Source Mar 08, 2024 ADVANCE DIRECTIVE DISCUSSION [facility] Radiology Reports: +/- 30 days of [...] the Encounter. The data comes from all [place] treatment facilities. Date/Time Radiology Report Provider Source Sep 06, 2024 01:40 PM MRI BRAIN W & W/O: LUIS MANUEL PERDOMO [id number] -1945 M Exm Date: SEP 06, 2024@13:40 Req Phys: FRANCK TURNER Pat Loc: 5-MED/TEL/09-06-2024@19:09 Img Loc: [facility] Service: [place] [address] (Case [id number] COMPLETE) MRI BRAIN W & W/O (MRI Detailed) CPT:93523 Contrast Media : Gadolinium Reason for Study: SEE CLINICAL HISTORY Pharmaceutical: GADOTERIDOL 279.3MG/ML 20ML INJ, 19ml Clinical History: MRI Screening (Required): IMPLANTED DEVICE DOCUMENTATION IMPLANTED DEVICE DOCUMENTATION NOT FOUND Does the have any Cardiac Implants? None Does the have any implanted stimulators? None Does the [place] have cochlear implants? No Does the have [...] 06, 2024 Date Verified: SEP 06, 2024 Information Technology Professor E-Sig: Report: MRI brain without and [...] Staff: ARCENIO LEYVA, Staff Radiologist Verified by machine puller for ARCENIO LEYVA /ARCENIO AV[facility] Sep 06, 2024 01:40 PM MRI C SPINE W & W/ O CONTRAST(FURTHER SEQUENCES): LUIS MANUEL PERDOMO [id number] -1945 M Exm Date: SEP 06, 2024@13:40 Req Phys: FRANCK TURNERSav Pat Loc: 5-MED/TEL/09-07-2024@06:42 Img Loc: [facility] Service: [place] [address] (Case [id number] COMPLETE) MRI C SPINE W & W/O CONTRAST(FURT(MRI Detailed) CPT:19358 Contrast Media : Gadolinium Reason for Study: [...] the have cochlear implants? No Does the [place] have Cerebral aneurysm clip(s)? I don't know [...] 07, 2024 Date Verified: SEP 07, 2024 Information Technology Professor E-Sig: Report: EXAMINATION: MRI OF THE [...] Interpreting Staff: HUANG TAI, Radiologist Verified by machine puller for HUANG TAI /HUANG [place]-Sav [facility] Sep 03, 2024 10:45 AM CHEST SINGLE(1) EW: LUIS MANUEL PERDOMO [id number] -1945 M Exm Date: SEP 03, 2024@10:45 Req Phys: FRANCK TURNER Pat Loc: 5-MED/TEL/09-03-2024@10:56 Img Loc: [facility] Service: [place] [address] (Case [id number] COMPLETE)CHEST SINGLE(1) VIEW (RAD Detailed) CPT:18110 Proc Modifiers : PORTABLE EXAM Reason for Study: Eval volume status Clinical History: Report Status: Verified Date Reported: SEP 03, 2024 Date Verified: SEP 03, 2024 Information Technology Professor E-Sig: Report: EXAMINATION: SINGLE VIEW CHEST [...] Interpreting Staff: HUANG TAI, Radiologist Verified by machine puller for HUANG TAI /HUANG [facility] Aug 29, 2024 08:[address] HEAD W/O CONT: LUIS MANUEL PERDOMO FABIAN [id number] -1945 M Exm Date: AUG 29, 2024@20:28 Req Phys: FELISA COLE Loc: ED/4P-12A (Req'g Loc) Img Loc: CT SCAN Service: Unknown [place] [id number] (Case [id number] COMPLETE) CT HEAD W/O CONT (CT Detailed) CPT:60097 Reason for Study: SEE CLINICAL HISTORY Clinical History: REASON FOR SEND OUT: ATTENDING PHYSICIAN NAME: New transient neurological s/s - suspected TIA HISTORY/REASON FOR EXAM: confusion Report Status: Verified Date Reported: AUG 29, 2024 Date Verified: AUG 29, 2024 Information Technology Professor E-Sig: Report: HISTORY confusion COMPARISON No [...] Staff: ABDIRAHMAN CROW, Staff Physician Verified by machine puller for ABDIRAHMAN CROW /GUERITA CROW,ABDIRAHMAN RUBI-D [facility] Pathology Reports: +/- 30 days [...] the Encounter. The data comes from all [place] treatment facilities. Date/Time Pathology Report Provider Source Sep 03, 2024 01:35 PM [facility] MICROBIOLOGY RE PORT: Reporting Lab: [place] [facility] [CLIA# [id number]] [address] [place] [id number] Accession [UID]: [id number] [[id number]] Received: Sep 03, 2024@14:02 Collection sample: URINE, [...] Performed By: [facility] [CLIA# [id number]] [address] [place] [id number] [facility] Sep 02, 2024 06:00 PM LR MICROBIOLOGY RE PORT: Reporting Lab: [facility] [CLIA# [id number]] [address] [place] [address] Accession [UID]: [id number] [[id number]] Received: Sep 02, 2024@18:07 Collection sample: BLD CULTURE BOTTLES Collection date: Sep 02, 2024 18:00 Site/Specimen: BLOOD Provider: FRANCK TURNER Comment on specimen: L HAND Test(s) ordered: CULTURE, BLOOD................ completed: Sep 08, 2024 * BACTERIOLOGY FINAL REPORT => Sep 08, 2024 08:25 TECH CODE: [id number] Bacteriology Remark(s): Blood culture status=NO GROWTH (unless notified otherwise) 09/03/2024 AEROBIC: NO GROWTH ANAEROBIC: NO GROWTH =--=--=--=--=--=--=--=--=--=-- =--=--=--=--=--=--=--=--=--=-- =--=--=--=--=--=-- Performing Laboratory: Bacteriology Report Performed By: [facility] [CLIA# [id number]] [address] [place] [address] [facility] Aug 29, 2024 10:18 PM LR MICROBIOLOGY RE PORT: Reporting Lab: [facility] [CLIA# [id number]] [address] [place] [address] Accession [UID]: [id number] [[id number]] Received: Aug 29, 2024@22:18 Collection sample: URINE, CLEAN CATCH Collection date: Aug 29, 2024 22:18 Site/Specimen: URINE Provider: FELISA COLE Test(s) ordered: CULTURE, URINE................ completed: Aug 31, 2024 09:51 * BACTERIOLOGY FINAL REPORT => Aug 31, 2024 09:51 TECH CODE: [id number] Bacteriology Remark(s): NO GROWTH 08/30/2024 <10,000 CFU/ML. 08/31/2024 =--=--=--=--=--=--=--=--=--=-- =--=--=--=--=--=--=--=--=--=-- =--=--=--=--=--=-- Performing Laboratory: Bacteriology Report Performed By: [facility] [CLIA# [id number]] [address] [place] [address] [facility]
--- OUTSIDE RECORDS SUMMARY | 2024-09-06 20:22 | XMS_ITS ---
[place] DAILY HOSPITALIZATION DATA [facility] Encounter Summary Created on: September 22, 2024 LUIS MANUEL PERDOMO : 1945 Sex: Male Author Name [facility] Organization [facility] Address [address] [place] [address] Care Team Providers Care Staff Technologist Name Role Phone YULISSA HENDERSON Primary [...] PLAN F Mar 24, 2014 PLAN F [id number] LUIS MANUEL PERDOMO PATIENT [facility] [place] [facility] PREFERRED PROVIDER ORGANIZAT ION (PPO) [facility] SLE Sep 21, 2012 [id number] LUIS MANUEL PERDOMO PATIENT [employer] ([id number]) PRESCRIPT ION WL3A Sep 21, 2012 [id number] [phone] LUIS MANUEL PERDOMO PATIENT MEDICARE (WNR) MEDICARE (M) PART B Sep 21, 2012 PART B [id number] [phone] NOEMI PERDOMO PATIENT MEDICARE (WNR) MEDICARE (M) PART A Jan 22, 2011 PART A [id number] LEANNE, NOEMI PATIENT MEDICARE PART D (WNR) MEDICARE (M) PART D Mar 24, 2014 PART D [id number] LUIS MANUEL PERDOMO PATIENT Selected Encounter This section includes the information on record at [place] for the Encounter. Date/Time Encounter Type Encounter Description Reason Pro vider Source Sep 07, 2024 12:22 AM Inpatient Visit DAILY HOSPITALIZATION DATA [facility] Encounter Template Text not used by [place] Plan of Treatment: Future Appointments (+ 6 months) and Future Tests (+/- 45 days) The Plan of Treatment section includes future care activities for the patient [facility] [place] [facility] This section includes future appointments and [...] 13, 2024 08:00 AM AMBULATORY - NONE [facility] Sep 30, 2024 01:30 PM AMBULATORY - SURGERY [facility] [facility] Active, Pending, and Scheduled Orders This [...] data comes from all [facility] facilities. Test Date/Time Test Type Test Details Facility Name Sep 13, 2024 01:33 PM Consult Order [facility] Cons [facility]se [facility] Lab Results: +/- [...] Type Comment Sep 09, 2024 12:16 PM [facility] GLUCOSE-HAND MONITOR CAPILLARY Specimen Type: CAPILLARY Comment: Test performed by: [id number] Meter #: [id number] Ordering Provider: FRANCK TURNER Report Released Date/Time: Sep 09, 2024 12:33 PM Reporting Lab: [address] [address] Performing Lab: [address] [address] GLUCOSE-HAND MONITOR 116 mg/dL H Sep 09, 2024 06:07 AM [facility] GLUCOSE-HAND MONITOR CAPILLARY Specime n Type: CAPILLARY Comment: Test performed by: [id number] Meter #: [id number] Ordering Provider: FRANCK TURNER Report Released Date/Time: Sep 09, 2024 08:17 AM Reporting Lab: [address] [address] Performing Lab: [address] [address] GLUCOSE-HAND MONITOR 112 mg/dL H Sep 08, 2024 09:13 PM [facility] GLUCOSE-HAND MONITOR CAPILLARY Specime n Type: CAPILLARY Comment: Test performed by: [id number] Meter #: [id number] Ordering Provider: FRANCK TURNER Report Released Date/Time: Sep 08, 2024 09:31 PM Reporting Lab: [address] [address] Performing Lab: [address] [address] GLUCOSE-HAND MONITOR 107 mg/dL H Sep 08, 2024 03:49 PM [facility] GLUCOSE-HAND MONITOR CAPILLARY Specime n Type: CAPILLARY Comment: AAMIR RN notified Test performed by: [id number] Meter #: [id number] Ordering Provider: FRANCK TURNER Report Released Date/Time: Sep 08, 2024 04:33 PM Reporting Lab: [address] [address] Performing Lab: [address] [address] GLUCOSE-HAND MONITOR 162 mg/dL H Sep 08, 2024 11:43 AM [facility] GLUCOSE-HAND MONITOR CAPILLARY Specime n Type: CAPILLARY Comment: AAMIR RN notified Test performed by: [id number] Meter #: [id number] Ordering Provider: FRANCK TURNER Report Released Date/Time: Sep 08, 2024 12:03 PM Reporting Lab: [address] [address] Performing Lab: [address] [address] GLUCOSE-HAND MONITOR 133 mg/dL H Sep 08, 2024 06:13 AM [facility] GLUCOSE-HAND MONITOR CAPILLARY Specime n Type: CAPILLARY Comment: Test performed by: [id number] Meter #: [id number] Ordering Provider: FRANCK TURNER Report Released Date/Time: Sep 08, 2024 06:46 AM Reporting Lab: [address] [address] Performing Lab: [address] [address] GLUCOSE-HAND MONITOR 104 mg/dL H Sep 07, 2024 07:59 PM [facility] GLUCOSE-HAND MONITOR CAPILLARY Specime n Type: CAPILLARY Comment: Test performed by: [id number] Meter #: [id number] Ordering Provider: FRANCK TURNER Report Released Date/Time: Sep 07, 2024 09:05 PM Reporting Lab: [address] [address] Performing Lab: [address] [address] GLUCOSE-HAND MONITOR 107 mg/dL H Sep 07, 2024 04:39 PM [facility] GLUCOSE-HAND MONITOR CAPILLARY Specime n Type: CAPILLARY Comment: Test performed by: [id number] Meter #: [id number] Ordering Provider: FRANCK TURNER Report Released Date/Time: Sep 07, 2024 05:09 PM Reporting Lab: [address] [address] Performing Lab: [address] [address] GLUCOSE-HAND MONITOR 105 mg/dL H Sep 07, 2024 11:41 AM [facility] GLUCOSE-HAND MONITOR CAPILLARY Specime n Type: CAPILLARY Comment: Test performed by: [id number] Meter #: [id number] Ordering Provider: FRANCK TURNER Report Released Date/Time: Sep 07, 2024 12:41 PM Reporting Lab: [address] [address] Performing Lab: [address] [address] GLUCOSE-HAND MONITOR 144 mg/dL H Sep 07, 2024 05:56 AM [facility] GLUCOSE-HAND MONITOR CAPILLARY Specime n Type: CAPILLARY Comment: Test performed by: [id number] Meter #: [id number] Ordering Provider: FRANCK TURNER Report Released Date/Time: Sep 07, 2024 06:31 AM Reporting Lab: [address] [address] Performing Lab: [address] [address] GLUCOSE-HAND MONITOR 96 mg/dL Sep 06, 2024 08:10 PM [facility] GLUCOSE-HAND MONITOR CAPILLARY Specime n Type: CAPILLARY Comment: Test performed by: [id number] Meter #: [id number] Ordering Provider: FRANCK TURNER Report Released Date/Time: Sep 06, 2024 08:52 PM Reporting Lab: [address] [address] Performing Lab: [address] [address] GLUCOSE-HAND MONITOR 124 mg/dL H Sep 06, 2024 04:27 PM [facility] GLUCOSE-HAND MONITOR CAPILLARY Specime n Type: CAPILLARY Comment: Test performed by: [id number] Meter #: [id number] Ordering Provider: FRANCK TURNER Report Released Date/Time: Sep 06, 2024 05:15 PM Reporting Lab: [address] [address] Performing Lab: [address] [address] GLUCOSE-HAND MONITOR 107 mg/dL H Sep 06, 2024 12:12 PM [facility] GLUCOSE-HAND MONITOR CAPILLARY Specime n Type: CAPILLARY Comment: Test performed by: [id number] Meter #: [id number] Ordering Provider: FRANCK TURNER Report Released Date/Time: Sep 06, 2024 12:29 PM Reporting Lab: [address] [address] Performing Lab: [address] [address] GLUCOSE-HAND MONITOR 181 mg/dL H -Sep 06, 2024 06:13 AM [facility] GLUCOSE-HAND MONITOR CAPILLARY Specime n Type: CAPILLARY Comment: Test performed by: [id number] Meter #: [id number] Ordering Provider: FRANCK TURNER Report Released Date/Time: Sep 06, 2024 06:36 AM Reporting Lab: [address] [address] Performing Lab: [address] [address] GLUCOSE-HAND MONITOR 102 mg/dL H Sep 05, 2024 08:47 PM [facility] GLUCOSE-HAND MONITOR CAPILLARY Specime n Type: CAPILLARY Comment: Test performed by: [id number] Meter #: [id number] Ordering Provider: FRANCK TURNER Report Released Date/Time: Sep 06, 2024 02:13 AM Reporting Lab: [address] [address] Performing Lab: [address] [address] GLUCOSE-HAND MONITOR 103 mg/dL H Sep 05, 2024 04:40 PM [facility] GLUCOSE-HAND MONITOR CAPILLARY Specime n Type: CAPILLARY Comment: AAMIR RN notified Test performed by: [id number] Meter #: [id number] Ordering Provider: FRANCK TURNER Report Released Date/Time: Sep 05, 2024 05:11 PM Reporting Lab: [address] [address] Performing Lab: [address] [address] GLUCOSE-HAND MONITOR 113 mg/dL H Sep 05, 2024 12:06 PM [facility] GLUCOSE-HAND MONITOR CAPILLARY Specime n Type: CAPILLARY Comment: Test performed by: [id number] Meter #: [id number] Ordering Provider: FRANCK TURNER Report Released Date/Time: Sep 05, 2024 12:23 PM Reporting Lab: [address] [address] Performing Lab: [address] [address] GLUCOSE-HAND MONITOR 115 mg/dL H Sep 05, 2024 06:26 AM [facility] GLUCOSE-HAND MONITOR CAPILLARY Specime n Type: CAPILLARY Comment: AAMIR Correction Dose Test performed by: [id number] Meter #: [id number] Ordering Provider: FRANCK TURNER Report Released Date/Time: Sep 05, 2024 06:43 AM Reporting Lab: [address] [address] Performing Lab: [address] [address] GLUCOSE-HAND MONITOR 111 mg/dL H Sep 04, 2024 08:59 PM [facility] GLUCOSE-HAND MONITOR CAPILLARY Specime n Type: CAPILLARY Comment: AAMIR RN notified Test performed by: [id number] Meter #: [id number] Ordering Provider: FRANCK TURNER Report Released Date/Time: Sep 04, 2024 09:36 PM Reporting Lab: [address] [address] Performing Lab: [address] [address] GLUCOSE-HAND MONITOR 123 mg/dL H Sep 04, 2024 04:41 PM [facility] GLUCOSE-HAND MONITOR CAPILLARY Specime n Type: CAPILLARY Comment: AAMIR RN notified Test performed by: [id number] Meter #: [id number] Ordering Provider: FRANCK TURNER Report Released Date/Time: Sep 04, 2024 05:03 PM Reporting Lab: [address] [address] Performing Lab: [address] [address] GLUCOSE-HAND MONITOR 118 mg/dL H Sep 04, 2024 12:36 PM [facility] GLUCOSE-HAND MONITOR CAPILLARY Specime n Type: CAPILLARY Comment: AAMIR RN notified Test performed by: [id number] Meter #: [id number] Ordering Provider: FRANCK TURNER Report Released Date/Time: Sep 04, 2024 12:53 PM Reporting Lab: [address] [address] Performing Lab: [place] [address] GLUCOSE-HAND MONITOR 129 mg/dL H 71-99 Sep 04, 2024 12:03 PM [facility] RESPIRATORY VIRUS PANEL (BIOFIRE) NASOPHARYN X Specimen Type: NASOPHARYNX Comment: ~For Test: RESPIRATORY VIRUS PANEL (BIOFIRE) ~ORDER READ BACK TO: FRANCK TURNER 09/04/24@11:30 Ordering Provider: FRANCK TURNER Report Released Date/Time: Sep 04, 2024 11:33 AM Reporting Lab: [place] [id number] Performing Lab: [place] [phone] ADENOVIRUS (BIOFIRE) Not Detected -Not D etected [...] AM Reporting Lab: [place] [facility] [address] [facility] [address] Performing Lab: [place] [id number] [facility] [address] MAGNESIUM 1.8 mg/dL 1.6-2.6 Sep 04, 2024 [...] Sep 03, 2024 11:10 AM Reporting Lab: [address] [address] Performing Lab: [address] CREATININE 0.75 mg/dL 0.72-1.25 UREA NITROGEN [...] n Type: CAPILLARY Comment: Test performed by: [id number] Meter #: [id number] Ordering Provider: FRANCK TURNER Report Released Date/Time: Sep 04, 2024 06:28 AM Reporting Lab: [address] Performing Lab: [address] GLUCOSE-HAND MONITOR 114 mg/dL H 71-99 Sep 03, 2024 05:19 PM [facility] GLUCOSE-HAND MONITOR CAPILLARY Specime n Type: CAPILLARY Comment: Test performed by: [id number] Meter #: [id number] Ordering Provider: FRANCK TURNER Report Released Date/Time: Sep 03, 2024 05:37 PM Reporting Lab: [address] Performing Lab: [address] [address] GLUCOSE-HAND MONITOR 124 mg/dL H 71-99 Sep 03, 2024 04:41 PM [facility] GLUCOSE-HAND MONITOR CAPILLARY Specime n Type: CAPILLARY Comment: Test performed by: [id number] Meter #: [id number] Ordering Provider: FRANCK TURNER Report Released Date/Time: Sep 03, 2024 06:09 PM Reporting Lab: [address] [address] Performing Lab: [address] [address] GLUCOSE-HAND MONITOR 112 mg/dL H 71-99 Sep 03, 2024 01:35 PM [facility] URINE LYTES URINE Specimen Type : URINE Comment: ~Altered mental status with no identifiable cause Ordering Provider: FRANCK TURNER Report Released Date/Time: Sep 02, 2024 04:44 PM Reporting Lab: [address] [address] Performing Lab: [address] [address] SODIUM 130 mmol/L POTASSIUM 47.6 mmol/L CHLORIDE 137 mmol/L Sep 03, 2024 01:35 PM [facility] CREATININE URINE Specimen Type: URINE Comment: ~Altered mental status with no identifiable cause Ordering Provider: FRANCK TURNER Report Released Date/Time: Sep 02, 2024 04:44 PM Reporting Lab: [address] [address] Performing Lab: [address] [address] CREATININE 150.9 mg/dL Sep 03, 2024 01:35 PM [facility] OSMOLALITY URINE Specimen Type: URINE Comment: ~Altered mental status with no identifiable cause Ordering Provider: FRANCK TURNER Report Released Date/Time: Sep 02, 2024 04:44 PM Reporting Lab: [address] [address] Performing Lab: [address] [address] OSMOLALITY 522 mosm/kg 38-1400 Sep 03, 2024 01:35 PM [facility] UREA NITROGEN URINE Specimen Type : URINE Comment: ~Altered mental status with no identifiable cause Ordering Provider: FRANCK TURNER Report Released Date/Time: Sep 02, 2024 04:44 PM Reporting Lab: [address] [address] Performing Lab: [address] [address] UREA NITROGEN 320 mg/dL Sep 03, 2024 01:35 PM [facility] URINALYSIS WITH REFLEX TO CULTURE URINE Specimen Type: URINE Comment: ~Altered mental status with no identifiable cause Ordering Provider: FRANCK TURNER Report Released Date/Time: Sep 02, 2024 04:44 PM Reporting Lab: [address] [address] Performing Lab: [address] [address] URINE COLOR Yellow Colorless-Yellow APPEARANCE CLOUDY H [...] H 0-28 Sep 03, 2024 11:58 AM [facility] GLUCOSE-HAND MONITOR CAPILLARY Specime n Type: CAPILLARY Comment: AAMIR RN notified Test performed by: [id number] Meter #: [id number] Ordering Provider: FRANCK TURNER Report Released Date/Time: Sep 03, 2024 12:15 PM Reporting Lab: [address] [address] Performing Lab: [address] [address] GLUCOSE-HAND MONITOR 135 mg/dL H Sep 03, 2024 07:09 AM [facility] GLUCOSE-HAND MONITOR CAPILLARY Specime n Type: CAPILLARY Comment: Test performed by: [id number] Meter #: [id number] Ordering Provider: FRANCK TURNER Report Released Date/Time: Sep 03, 2024 07:26 AM Reporting Lab: [address] [address] Performing Lab: [address] [address] GLUCOSE-HAND MONITOR 120 mg/dL H -Sep 03, 2024 07:05 AM [facility] CBC/PLT BLOOD Specimen Type: BLOOD No comment entered. Ordering Provider: FRANCK TURNER Report Released Date/Time: Sep 02, 2024 04:29 PM Reporting Lab: [address] [address] Performing Lab: [address] [address] WBC 6.9 10*3/uL 5.0-10.0 RBC 3.48 10*6/uL [...] Sep 02, 2024 04:29 PM Reporting Lab: [address] [address] Performing Lab: [address] [address] MAGNESIUM 1.7 mg/dL 1.6-2.6 Sep 03, 2024 [...] Sep 02, 2024 04:29 PM Reporting Lab: [address] [address] Performing Lab: [address] [address] CREATININE 0.82 mg/dL 0.72-1.25 UREA NITROGEN 12 [...] BLOOD Comment: Prediabetes: 5.7%-6.4% Diabetes: >= 6.5% [place] guidelines for A1c interpretation: Glycemic control targets [...] 8.73 and 9.27. Ref: https://ngsp.org/CAPdata.asp. The in-house Viropro-Sarenza D-100 analyzer has a historical CV <= 2%. Contact the laboratory for further performance characteristics of this assay. Ordering Provider: FRANCK TURNER Report Released Date/Time: Sep 02, 2024 04:29 PM Reporting Lab: [address] [address] Performing Lab: [place] [phone] GLYCOHEMOGLOBIN 5.6 4.4-5.6 Sep 03, 2024 07:05 AM [facility] OSMOLALITY SERUM Specimen Type: SERUM No comment entered. Ordering Provider: FRANCK TURNER Report Released Date/Time: Sep 02, 2024 04:44 PM Reporting Lab: [address] [address] Performing Lab: [address] [address] OSMOLALITY 271 mosm/kg L 280-300 Sep 02, 2024 08:15 PM [facility] GLUCOSE-HAND MONITOR CAPILLARY Specime n Type: CAPILLARY Comment: AAMIR DEXTER notified Test performed by: [id number] Meter #: [id number] Ordering Provider: FRANCK TURNER Report Released Date/Time: Sep 02, 2024 08:57 PM Reporting Lab: [address] [address] Performing Lab: [address] [address] GLUCOSE-HAND MONITOR 126 mg/dL H 71-99 Sep [...] Sep 02, 2024 05:12 PM Reporting Lab: [address] [address] Performing Lab: [address] [address] MRSA SURVL NARES DNA Negative Negative Sep 02, 2024 05:36 PM [facility] GLUCOSE-HAND MONITOR CAPILLARY Specime n Type: CAPILLARY Comment: Test performed by: [id number] Meter #: [id number] Ordering Provider: FRANCK TURNER Report Released Date/Time: Sep 02, 2024 05:53 PM Reporting Lab: [address] [address] Performing Lab: [address] [address] GLUCOSE-HAND MONITOR 127 mg/dL H 71-99 Aug 29, 2024 10:04 PM [facility] URINALYSIS WITH REFLEX TO CULTURE URINE Specimen Type: URINE Comment: ~For Test: URINALYSIS WITH REFLEX TO CULTURE ~REORDER Ordering Provider: FELISA COLE Report Released Date/Time: Aug 29, 2024 09:36 PM Reporting Lab: [address] [address] Performing Lab: [address] [address] URINE COLOR Yellow Colorless-Yellow APPEARANCE Clear Clear [...] /[LPF] 0-28 Aug 29, 2024 08:32 PM [facility] HIGH SENSITIVITY TROPONIN I PLASMA Specimen [...] Aug 29, 2024 07:55 PM Reporting Lab: [address] [address] Performing Lab: [address] [address] HIGH SENSITIVITY TROPONIN I 7 4-35 Aug 29, 2024 08:32 PM [facility] CBC/PLT BLOOD Specimen Type: BLOOD No comment entered. Ordering Provider: FELISA COLE Report Released Date/Time: Aug 29, 2024 07:55 PM Reporting Lab: [address] [address] Performing Lab: [address] [address] WBC 11.2 10*3/uL H 5.0-10.0 RBC 3.97 10*6/uL L 4.6-6.2 HGB 10.9 g/dL L 14.0-18.0 HCT 33.5 L 42.0-52.0 MCV 84.4 fL 80.0-94.0 MCH 27.5 pg 27.0-31.0 MCHC 32.5 g/dL 32.0-36.0 PLT 230 10*3/uL 150-450 MPV 10.2 fL 9.0-13.1 RDW 14.6 11.0-16.0 NRBC 0.0 0.0-0.0 Aug 29, 2024 08:32 PM [facility] PANEL 5 PLASMA Specimen Type: PLASM [...] Aug 29, 2024 07:55 PM Reporting Lab: [address] [address] Performing Lab: [address] [address] CREATININE 0.85 mg/dL 0.72-1.25 UREA NITROGEN 15 [...] Height Weight Body Mass Index Source Sep 07, 2024 09:02 PM 0 [place] Sep 07, 2024 08:01 PM 97.8 F 66 /min 148/76 mm[Hg] 16 /min 95 % 0 [facility] Sep 07, 2024 04:38 PM 97.0 F 61 /min 122/69 mm[Hg] 20 /min 94 % 0 [place] Sep 07, 2024 02:23 PM 0 [place] Sep 07, 2024 12:08 PM 62 /min 118/68 mm[Hg] [place] [facility] Advance Directives: All historical and current Section [...] 08, 2024 ADVANCE DIRECTIVE DISCUSSION [facility] Radiology Reports: +/- 30 days of [...] BRAIN W & W/O: LUIS MANUEL PERDOMO [id number] -1945 M Exm Date: SEP 06, 2024@13:40 Req Phys: FRANCK TURNER Loc: 5-MED/TEL/09-06-2024@19:09 Img Loc: [facility] Service: [place] [address] (Case [id number] COMPLETE) MRI BRAIN W & W/O (MRI Detailed) CPT:72099 Contrast Media : Gadolinium Reason for Study: SEE CLINICAL HISTORY Pharmaceutical: GADOTERIDOL 279.3MG/ML 20ML INJ, 19ml Clinical History: MRI Screening (Required): IMPLANTED DEVICE DOCUMENTATION IMPLANTED DEVICE DOCUMENTATION NOT FOUND Does the [place] have any Cardiac Implants? None Does the have any implanted stimulators? None Does the [place] have cochlear implants? No Does the have [...] 06, 2024 Date Verified: SEP 06, 2024 Machine Fur Cleaner E-Sig: Report: MRI brain without and with [...] ARCENIO LEYVA, Staff Radiologist Verified by machine tack puller for ARCENIO LEYVA /ARCENIO AVILA-[facility] Sep 06, 2024 01:40 PM MRI C SPINE W & W/ O CONTRAST(FURTHER SEQUENCES): LUIS MANUEL PERDOMO [id number] -1945 M Exm Date: SEP 06, 2024@13:40 Req Phys: FRANCK TURNERISIAHFLOSav Pat Loc: 5-MED/TEL/09-07-2024@06:42 Img Loc: [facility] Service: [place] [address] (Case [id number] COMPLETE) MRI C SPINE W & W/O CONTRAST(FURT(MRI Detailed) CPT:50667 Contrast Media : Gadolinium Reason for Study: SEE CLINICAL HISTORY Pharmaceutical: GADOTERIDOL 279.3MG/ML 20ML INJ, 19ml Clinical History: STATUS OF PLAIN FILMS:Not performed (Provide justification for MR W/O prior plain films below.) MRI for MS MRI Screening (Required): IMPLANTED DEVICE DOCUMENTATION IMPLANTED DEVICE DOCUMENTATION NOT FOUND Does the [place] have any Cardiac Implants? None Does the [place] have any implanted stimulators? None Does the [place] have cochlear implants? No Does the have Cerebral aneurysm clip(s)? I don't know Does the [place] have any shrapnel? I don't know If [...] 07, 2024 Date Verified: SEP 07, 2024 Machine Fur Cleaner E-Sig: Report: EXAMINATION: MRI OF THE CERVICAL [...] Staff: HUANG TAI, Radiologist Verified by machine tack puller for HUANG TAI /HUANG WHEATLEY-[facility]AL[facility] Sep 03, 2024 10:45 AM CHEST SINGLE(1) EW: LUIS MANUEL PERDOMO [id number] -1945 M Exm Date: SEP 03, 2024@10:45 Req Phys: FRANCK TURNER Pat Loc: 5-MED/TEL/09-03-2024@10:56 Img Loc: [facility] RADIOLOGY Service: [place] [address] (Case [id number] COMPLETE)CHEST SINGLE(1) VIEW (RAD Detailed) CPT:33218 Proc Modifiers : PORTABLE EXAM Reason for Study: Eval volume status Clinical History: Report Status: Verified Date Reported: SEP 03, 2024 Date Verified: SEP 03, 2024 Machine Fur Cleaner E-Sig: Report: EXAMINATION: SINGLE VIEW CHEST CLINICAL [...] Staff: HUANG TAI, Radiologist Verified by machine tack puller for HUANG TAI /HUANG WHEATLEY-[facility] Aug 29, 2024 08:[address] HEAD W/O CONT: LUIS MANUEL PERDOMO [id number] -1945 M Exm Date: AUG 29, 2024@20:28 Req Phys: FELISA COLE Loc: ED/4P-12A (Req'g Loc) Img Loc: CT SCAN Service: Unknown [place] [id number] (Case [id number] COMPLETE) CT HEAD W/O CONT (CT Detailed) CPT:40661 Reason for Study: SEE CLINICAL HISTORY Clinical History: REASON FOR SEND OUT: ATTENDING PHYSICIAN NAME: New transient neurological s/s - suspected TIA HISTORY/REASON FOR EXAM: confusion Report Status: Verified Date Reported: AUG 29, 2024 Date Verified: AUG 29, 2024 Machine Fur Cleaner E-Sig: Report: HISTORY confusion COMPARISON No prior [...] ABDIRAHMAN CROW, Staff Physician Verified by machine tack puller for ABDIRAHMAN CROW /[facility] Pathology Reports: +/- 30 days of [...] [facility] [CLIA# [id number]] [address] [place] [id number] Accession [UID]: [id number] [[id number]] Received: Sep 03, 2024@14:02 Collection sample: URINE, [...] [facility] [CLIA# [id number]] [address] [place] [id number] [facility] Sep 02, 2024 06:00 PM LR MICROBIOLOGY RE [place]: Reporting Lab: [facility] [CLIA# [id number]] [address] [place] [address] Accession [UID]: [id number] [[id number]] Received: Sep 02, 2024@18:07 Collection sample: BLD CULTURE BOTTLES Collection date: Sep 02, 2024 18:00 Site/Specimen: BLOOD Provider: FRANCK TURNER Comment on specimen: L HAND Test(s) ordered: CULTURE, BLOOD................ completed: Sep 08, 2024 * BACTERIOLOGY FINAL REPORT => Sep 08, 2024 08:25 TECH CODE: [id number] Bacteriology Remark(s): Blood culture status=NO GROWTH (unless notified otherwise) 09/03/2024 AEROBIC: NO GROWTH ANAEROBIC: NO GROWTH =--=--=--=--=--=--=--=--=--=-- =--=--=--=--=--=--=--=--=--=-- =--=--=--=--=--=-- Performing Laboratory: Bacteriology Report Performed By: [facility] [CLIA# [id number]] [address] [place] [address] MAGDY CALABRESE [facility] Aug 29, 2024 10:18 PM LR MICROBIOLOGY RE [place]: Reporting Lab: [facility] [CLIA# [id number]] [address] [place] [address] Accession [UID]: [id number] [[id number]] Received: Aug 29, 2024@22:18 Collection sample: URINE, CLEAN CATCH Collection date: Aug 29, 2024 22:18 Site/Specimen: URINE Provider: FELISA COLE Test(s) ordered: CULTURE, URINE................ completed: Aug 31, 2024 09:51 * BACTERIOLOGY FINAL REPORT => Aug 31, 2024 09:51 TECH CODE: [id number] Bacteriology Remark(s): NO GROWTH 08/30/2024 <10,000 CFU/ML. 08/31/2024 =--=--=--=--=--=--=--=--=--=-- =--=--=--=--=--=--=--=--=--=-- =--=--=--=--=--=-- Performing Laboratory: Bacteriology Report Performed By: [facility] [CLIA# [id number]] [address] [place] [address] MAGDY CALABRESE-Sav [facility]
--- OUTSIDE RECORDS SUMMARY | 2024-09-07 02:19 | XMS_ITS ---
[place] DAILY HOSPITALIZATION DATA [facility] Encounter Summary Created on: September 22, 2024 LUIS MANUEL PERDOMO : 1945 Sex: Male Author Name [facility] Organization [facility] [place] Address [address] [place] [address] Care Team Providers Care Commissions Specialist Name Role Phone YULISSA HENDERSON Primary [...] PLAN F Mar 24, 2014 PLAN F [id number] LUIS MANUEL PERDOMO PATIENT [facility] [place] BLUECARD PREFERRED PROVIDER ORGANIZAT ION (PPO) [facility] SLE Sep 21, 2012 [id number] LUIS MANUEL PERDOMO PATIENT [employer] ([id number]) PRESCRIPT ION WL3A Sep 21, 2012 [id number] LUIS MANUEL PERDOMO PATIENT MEDICARE (WNR) MEDICARE (M) PART B Sep 21, 2012 PART B [id number] NOEMI PERDOMO PATIENT MEDICARE (WNR) MEDICARE (M) PART A Jan 22, 2011 PART A [id number] LEANNE, NOEMI PATIENT MEDICARE PART D (WNR) MEDICARE (M) PART D Mar 24, 2014 PART D [id number] LUIS MANUEL PERDOMO PATIENT Selected Encounter This section includes the information on record at [place] for the Encounter. Date/Time Encounter Type Encounter Description Reason Pro vider Source Sep 07, 2024 06:19 AM Inpatient Visit DAILY HOSPITALIZATION DATA [facility] Encounter Template Text not used by [place] Plan of Treatment: Future Appointments (+ 6 months) and Future Tests (+/- 45 days) The Plan of Treatment section includes future care activities for the patient from all [place] [facility] This [...] 08:00 AM AMBULATORY - NONE [facility] Sep 30, 2024 01:30 PM AMBULATORY - [...] Sep 13, 2024 01:33 PM Consult Order [facility] SKILLED HOME CARE Cons Labor Trainer's Choice [facility] Lab Results: [...] Type Comment Sep 09, 2024 12:16 PM [facility] GLUCOSE-HAND MONITOR CAPILLARY Specimen Type: CAPILLARY Comment: Test performed by: [id number] Meter #: [id number] Ordering Provider: FRANCK TURNER Report Released Date/Time: Sep 09, 2024 12:33 PM Reporting Lab: [address] [address] Performing Lab: [address] [address] GLUCOSE-HAND MONITOR 116 mg/dL H Sep 09, 2024 06:07 AM [facility] GLUCOSE-HAND MONITOR CAPILLARY Specime n Type: CAPILLARY Comment: Test performed by: [id number] Meter #: [id number] Ordering Provider: FRANCK TURNER Report Released Date/Time: Sep 09, 2024 08:17 AM Reporting Lab: [address] [address] Performing Lab: [address] [address] GLUCOSE-HAND MONITOR 112 mg/dL H Sep 08, 2024 09:13 PM [facility] GLUCOSE-HAND MONITOR CAPILLARY Specime n Type: CAPILLARY Comment: Test performed by: [id number] Meter #: [id number] Ordering Provider: FRANCK TURNER Report Released Date/Time: Sep 08, 2024 09:31 PM Reporting Lab: [address] [address] Performing Lab: [address] [address] GLUCOSE-HAND MONITOR 107 mg/dL H Sep 08, 2024 03:49 PM [facility] GLUCOSE-HAND MONITOR CAPILLARY Specime n Type: CAPILLARY Comment: AAMIR RN notified Test performed by: [id number] Meter #: [id number] Ordering Provider: FRANCK TURNER Report Released Date/Time: Sep 08, 2024 04:33 PM Reporting Lab: [address] [address] Performing Lab: [address] [address] GLUCOSE-HAND MONITOR 162 mg/dL H Sep 08, 2024 11:43 AM [facility] GLUCOSE-HAND MONITOR CAPILLARY Specime n Type: CAPILLARY Comment: AAMIR RN notified Test performed by: [id number] Meter #: [id number] Ordering Provider: FRANCK TURNER Report Released Date/Time: Sep 08, 2024 12:03 PM Reporting Lab: [address] [address] Performing Lab: [address] [address] GLUCOSE-HAND MONITOR 133 mg/dL H Sep 08, 2024 06:13 AM [facility] GLUCOSE-HAND MONITOR CAPILLARY Specime n Type: CAPILLARY Comment: Test performed by: [id number] Meter #: [id number] Ordering Provider: FRANCK TURNER Report Released Date/Time: Sep 08, 2024 06:46 AM Reporting Lab: [address] [address] Performing Lab: [address] [address] GLUCOSE-HAND MONITOR 104 mg/dL H Sep 07, 2024 07:59 PM [facility] GLUCOSE-HAND MONITOR CAPILLARY Specime n Type: CAPILLARY Comment: Test performed by: [id number] Meter #: [id number] Ordering Provider: FRANCK TURNER Report Released Date/Time: Sep 07, 2024 09:05 PM Reporting Lab: [address] [address] Performing Lab: [address] [address] GLUCOSE-HAND MONITOR 107 mg/dL H Sep 07, 2024 04:39 PM [facility] GLUCOSE-HAND MONITOR CAPILLARY Specime n Type: CAPILLARY Comment: Test performed by: [id number] Meter #: [id number] Ordering Provider: FRANCK TURNER Report Released Date/Time: Sep 07, 2024 05:09 PM Reporting Lab: [address] [address] Performing Lab: [address] [address] GLUCOSE-HAND MONITOR 105 mg/dL H Sep 07, 2024 11:41 AM [facility] GLUCOSE-HAND MONITOR CAPILLARY Specime n Type: CAPILLARY Comment: Test performed by: [id number] Meter #: [id number] Ordering Provider: FRANCK TURNER Report Released Date/Time: Sep 07, 2024 12:41 PM Reporting Lab: [address] [address] Performing Lab: [address] [address] GLUCOSE-HAND MONITOR 144 mg/dL H Sep 07, 2024 05:56 AM [facility] GLUCOSE-HAND MONITOR CAPILLARY Specime n Type: CAPILLARY Comment: Test performed by: [id number] Meter #: [id number] Ordering Provider: FRANCK TURNER Report Released Date/Time: Sep 07, 2024 06:31 AM Reporting Lab: [address] [address] Performing Lab: [address] [address] GLUCOSE-HAND MONITOR 96 mg/dL Sep 06, 2024 08:10 PM [facility] GLUCOSE-HAND MONITOR CAPILLARY Specime n Type: CAPILLARY Comment: Test performed by: [id number] Meter #: [id number] Ordering Provider: FRANCK TURNER Report Released Date/Time: Sep 06, 2024 08:52 PM Reporting Lab: [address] [address] Performing Lab: [address] [address] GLUCOSE-HAND MONITOR 124 mg/dL H Sep 06, 2024 04:27 PM [facility] GLUCOSE-HAND MONITOR CAPILLARY Specime n Type: CAPILLARY Comment: Test performed by: [id number] Meter #: [id number] Ordering Provider: FRANCK TURNER Report Released Date/Time: Sep 06, 2024 05:15 PM Reporting Lab: [address] [address] Performing Lab: [address] [address] GLUCOSE-HAND MONITOR 107 mg/dL H Sep 06, 2024 12:12 PM [facility] GLUCOSE-HAND MONITOR CAPILLARY Specime n Type: CAPILLARY Comment: Test performed by: [id number] Meter #: [id number] Ordering Provider: FRANCK TURNER Report Released Date/Time: Sep 06, 2024 12:29 PM Reporting Lab: [address] [address] Performing Lab: [address] [address] GLUCOSE-HAND MONITOR 181 mg/dL H -Sep 06, 2024 06:13 AM [facility] GLUCOSE-HAND MONITOR CAPILLARY Specime n Type: CAPILLARY Comment: Test performed by: [id number] Meter #: [id number] Ordering Provider: FRANCK TURNER Report Released Date/Time: Sep 06, 2024 06:36 AM Reporting Lab: [address] [address] Performing Lab: [address] [address] GLUCOSE-HAND MONITOR 102 mg/dL H Sep 05, 2024 08:47 PM [facility] GLUCOSE-HAND MONITOR CAPILLARY Specime n Type: CAPILLARY Comment: Test performed by: [id number] Meter #: [id number] Ordering Provider: FRANCK TURNER Report Released Date/Time: Sep 06, 2024 02:13 AM Reporting Lab: [address] [address] Performing Lab: [address] [address] GLUCOSE-HAND MONITOR 103 mg/dL H Sep 05, 2024 04:40 PM [facility] GLUCOSE-HAND MONITOR CAPILLARY Specime n Type: CAPILLARY Comment: AAMIR RN notified Test performed by: [id number] Meter #: [id number] Ordering Provider: FRANCK TURNER Report Released Date/Time: Sep 05, 2024 05:11 PM Reporting Lab: [address] [address] Performing Lab: [address] [address] GLUCOSE-HAND MONITOR 113 mg/dL H Sep 05, 2024 12:06 PM [facility] GLUCOSE-HAND MONITOR CAPILLARY Specime n Type: CAPILLARY Comment: Test performed by: [id number] Meter #: [id number] Ordering Provider: FRANCK TURNER Report Released Date/Time: Sep 05, 2024 12:23 PM Reporting Lab: [address] [address] Performing Lab: [address] [address] GLUCOSE-HAND MONITOR 115 mg/dL H Sep 05, 2024 06:26 AM [facility] GLUCOSE-HAND MONITOR CAPILLARY Specime n Type: CAPILLARY Comment: AAMIR Correction Dose Test performed by: [id number] Meter #: [id number] Ordering Provider: FRANCK TURNER Report Released Date/Time: Sep 05, 2024 06:43 AM Reporting Lab: [address] [address] Performing Lab: [address] [address] GLUCOSE-HAND MONITOR 111 mg/dL H Sep 04, 2024 08:59 PM [facility] GLUCOSE-HAND MONITOR CAPILLARY Specime n Type: CAPILLARY Comment: AAMIR RN notified Test performed by: [id number] Meter #: [id number] Ordering Provider: FRANCK TURNER Report Released Date/Time: Sep 04, 2024 09:36 PM Reporting Lab: [address] [address] Performing Lab: [address] [address] GLUCOSE-HAND MONITOR 123 mg/dL H Sep 04, 2024 04:41 PM [facility] GLUCOSE-HAND MONITOR CAPILLARY Specime n Type: CAPILLARY Comment: AAMIR RN notified Test performed by: [id number] Meter #: [id number] Ordering Provider: FRANCK TURNER Report Released Date/Time: Sep 04, 2024 05:03 PM Reporting Lab: [address] [address] Performing Lab: [address] [address] GLUCOSE-HAND MONITOR 118 mg/dL H Sep 04, 2024 12:36 PM [facility] GLUCOSE-HAND MONITOR CAPILLARY Specime n Type: CAPILLARY Comment: AAMIR RN notified Test performed by: [id number] Meter #: [id number] Ordering Provider: FRANCK TURNER Report Released Date/Time: Sep 04, 2024 12:53 PM Reporting Lab: [address] [address] Performing Lab: [place] [address] GLUCOSE-HAND MONITOR 129 mg/dL H 71-99 Sep 04, 2024 12:03 PM [facility] RESPIRATORY VIRUS PANEL (BIOFIRE) NASOPHARYN X Specimen Type: NASOPHARYNX Comment: ~For Test: RESPIRATORY VIRUS PANEL (BIOFIRE) ~ORDER READ BACK TO: FRANCK TURNER 09/04/24@11:30 Ordering Provider: FRANCK TURNER Report Released Date/Time: Sep 04, 2024 11:33 AM Reporting Lab: [place] [phone] Performing Lab: [place] [phone] ADENOVIRUS (BIOFIRE) Not Detected -Not D etected [...] 2024 11:10 AM Reporting Lab: [place] [facility] [address] [facility] [address] Performing Lab: [place] [address] [facility] [address] MAGNESIUM 1.8 mg/dL 1.6-2.6 Sep 04, 2024 [...] 03, 2024 11:10 AM Reporting Lab: [address] [address] Performing Lab: [address] CREATININE 0.75 mg/dL 0.72-1.25 UREA NITROGEN [...] n Type: CAPILLARY Comment: Test performed by: [id number] Meter #: [id number] Ordering Provider: FRANCK TURNER Report Released Date/Time: Sep 04, 2024 06:28 AM Reporting Lab: [address] Performing Lab: [address] GLUCOSE-HAND MONITOR 114 mg/dL H 71-99 Sep 03, 2024 05:19 PM [facility] GLUCOSE-HAND MONITOR CAPILLARY Specime n Type: CAPILLARY Comment: Test performed by: [id number] Meter #: [id number] Ordering Provider: FRANCK TURNER Report Released Date/Time: Sep 03, 2024 05:37 PM Reporting Lab: [address] Performing Lab: [address] [address] GLUCOSE-HAND MONITOR 124 mg/dL H 71-99 Sep 03, 2024 04:41 PM [facility] GLUCOSE-HAND MONITOR CAPILLARY Specime n Type: CAPILLARY Comment: Test performed by: [id number] Meter #: [id number] Ordering Provider: FRANCK TURNER Report Released Date/Time: Sep 03, 2024 06:09 PM Reporting Lab: [address] [address] Performing Lab: [address] [address] GLUCOSE-HAND MONITOR 112 mg/dL H 71-99 Sep 03, 2024 01:35 PM [facility] CREATININE URINE Specimen Type: URINE Comment: ~Altered mental status with no identifiable cause Ordering Provider: FRANCK TURNER Report Released Date/Time: Sep 02, 2024 04:44 PM Reporting Lab: [facility] [address] [place] [address] Performing Lab: [address] [address] CREATININE 150.9 mg/dL Sep 03, 2024 01:35 PM [facility] URINE LYTES URINE Specimen Type : URINE Comment: ~Altered mental status with no identifiable cause Ordering Provider: FRANCK TURNER Report Released Date/Time: Sep 02, 2024 04:44 PM Reporting Lab: [address] [address] Performing Lab: [address] [address] SODIUM 130 mmol/L POTASSIUM 47.6 mmol/L CHLORIDE 137 mmol/L Sep 03, 2024 01:35 PM [facility] UREA NITROGEN URINE Specimen Type : URINE Comment: ~Altered mental status with no identifiable cause Ordering Provider: FRANCK TURNER Report Released Date/Time: Sep 02, 2024 04:44 PM Reporting Lab: [address] [address] Performing Lab: [address] [address] UREA NITROGEN 320 mg/dL Sep 03, 2024 01:35 PM [facility] OSMOLALITY URINE Specimen Type: URINE Comment: ~Altered mental status with no identifiable cause Ordering Provider: FRANCK TURNER Report Released Date/Time: Sep 02, 2024 04:44 PM Reporting Lab: [address] [address] Performing Lab: [address] [address] OSMOLALITY 522 mosm/kg 38-1400 Sep 03, 2024 01:35 PM [facility] URINALYSIS WITH REFLEX TO CULTURE URINE Specimen Type: URINE Comment: ~Altered mental status with no identifiable cause Ordering Provider: FRANCK TURNER Report Released Date/Time: Sep 02, 2024 04:44 PM Reporting Lab: [address] [address] Performing Lab: [address] [address] URINE COLOR Yellow Colorless-Yellow APPEARANCE CLOUDY H [...] Comment: AAMIR RN notified Test performed by: [id number] Meter #: [id number] Ordering Provider: FRANCK TURNER Report Released Date/Time: Sep 03, 2024 12:15 PM Reporting Lab: [address] [address] Performing Lab: [address] [address] GLUCOSE-HAND MONITOR 135 mg/dL H Sep 03, 2024 07:09 AM [facility] GLUCOSE-HAND MONITOR CAPILLARY Specime n Type: CAPILLARY Comment: Test performed by: [id number] Meter #: [id number] Ordering Provider: FRANCK TURNER Report Released Date/Time: Sep 03, 2024 07:26 AM Reporting Lab: [address] [address] Performing Lab: [address] [address] GLUCOSE-HAND MONITOR 120 mg/dL H -Sep 03, 2024 07:05 AM [facility] CBC/PLT BLOOD Specimen Type: BLOOD No comment entered. Ordering Provider: FRANCK TURNER Report Released Date/Time: Sep 02, 2024 04:29 PM Reporting Lab: [address] [address] Performing Lab: [address] [address] WBC 6.9 10*3/uL 5.0-10.0 RBC 3.48 10*6/uL [...] Sep 02, 2024 04:29 PM Reporting Lab: [address] [address] Performing Lab: [address] [address] MAGNESIUM 1.7 mg/dL 1.6-2.6 Sep 03, 2024 [...] Sep 02, 2024 04:29 PM Reporting Lab: [address] [address] Performing Lab: [address] [address] CREATININE 0.82 mg/dL 0.72-1.25 UREA NITROGEN 12 [...] BLOOD Comment: Prediabetes: 5.7%-6.4% Diabetes: >= 6.5% [facility] guidelines for A1c interpretation: [...] 8.73 and 9.27. Ref: https://ngsp.org/CAPdata.asp. The in-house Aerob-CaLiving[employer]ef[employer] D-100 analyzer has a historical CV <= 2%. Contact the laboratory for further performance characteristics of this assay. Ordering Provider: FRANCK TURNER Report Released Date/Time: Sep 02, 2024 04:29 PM Reporting Lab: [address] [address] Performing Lab: [place] [phone] GLYCOHEMOGLOBIN 5.6 4.4-5.6 Sep 03, 2024 07:05 AM [facility] OSMOLALITY SERUM Specimen Type: SERUM No comment entered. Ordering Provider: FRANCK TURNER Report Released Date/Time: Sep 02, 2024 04:44 PM Reporting Lab: [address] [address] Performing Lab: [address] [address] OSMOLALITY 271 mosm/kg L 280-300 Sep 02, 2024 08:15 PM [facility] GLUCOSE-HAND MONITOR CAPILLARY Specime n Type: CAPILLARY Comment: AAMIR DEXTER notified Test performed by: [id number] Meter #: [id number] Ordering Provider: FRANCK TURNER Report Released Date/Time: Sep 02, 2024 08:57 PM Reporting Lab: [address] [address] Performing Lab: [address] [address] GLUCOSE-HAND MONITOR 126 mg/dL H 71-99 Sep [...] Sep 02, 2024 05:12 PM Reporting Lab: [address] [address] Performing Lab: [address] [address] MRSA SURVL NARES DNA Negative Negative Sep 02, 2024 05:36 PM [facility] GLUCOSE-HAND MONITOR CAPILLARY Specime n Type: CAPILLARY Comment: Test performed by: [id number] Meter #: [id number] Ordering Provider: FRANCK TURNER Report Released Date/Time: Sep 02, 2024 05:53 PM Reporting Lab: [address] [address] Performing Lab: [address] [address] GLUCOSE-HAND MONITOR 127 mg/dL H 71-99 Aug 29, 2024 10:04 PM [facility] URINALYSIS WITH REFLEX TO CULTURE URINE Specimen Type: URINE Comment: ~For Test: URINALYSIS WITH REFLEX TO CULTURE ~REORDER Ordering Provider: FELISA COLE Report Released Date/Time: Aug 29, 2024 09:36 PM Reporting Lab: [address] [address] Performing Lab: [address] [address] URINE COLOR Yellow Colorless-Yellow APPEARANCE Clear Clear [...] Aug 29, 2024 07:55 PM Reporting Lab: [address] [address] Performing Lab: [address] [address] HIGH SENSITIVITY TROPONIN I 7 4-35 Aug 29, 2024 08:32 PM [facility] CBC/PLT BLOOD Specimen Type: BLOOD No comment entered. Ordering Provider: FELISA COLE Report Released Date/Time: Aug 29, 2024 07:55 PM Reporting Lab: [address] [address] Performing Lab: [address] [address] WBC 11.2 10*3/uL H 5.0-10.0 RBC 3.97 [...] Aug 29, 2024 07:55 PM Reporting Lab: [address] [address] Performing Lab: [address] [address] CREATININE 0.85 mg/dL 0.72-1.25 UREA NITROGEN 15 [...] 07, 2024 09:02 PM 0 [place] [facility] Sep 07, 2024 08:01 PM 97.8 F 66 /min 148/76 mm[Hg] 16 /min 95 % 0 [facility] Sep 07, 2024 04:38 PM 97.0 F 61 /min 122/69 mm[Hg] 20 /min 94 % 0 [place] [facility] Sep 07, 2024 02:23 PM 0 [place] [facility] Sep 07, 2024 12:08 PM 62 /min 118/68 mm[Hg] [place] [facility] Advance Directives: All historical and current [...] 08, 2024 ADVANCE DIRECTIVE DISCUSSION [facility]IN [facility] Radiology Reports: +/- 30 days of [...] BRAIN W & W/O: LUIS MANUEL PERDOMO [id number] -1945 M Exm Date: SEP 06, 2024@13:40 Req Phys: FRANCK TURNER Loc: 5-MED/TEL/09-06-2024@19:09 Img Loc: [facility] Service: [place] [address] (Case [id number] COMPLETE) MRI BRAIN W & W/O (MRI Detailed) CPT:25002 Contrast Media : Gadolinium Reason for Study: SEE CLINICAL HISTORY Pharmaceutical: GADOTERIDOL 279.3MG/ML 20ML INJ, 19ml Clinical History: MRI Screening (Required): IMPLANTED DEVICE DOCUMENTATION IMPLANTED DEVICE DOCUMENTATION NOT FOUND Does the [place] have any Cardiac Implants? None Does the have any implanted stimulators? None Does the [place] have cochlear implants? No Does the have [...] 06, 2024 Date Verified: SEP 06, 2024 Desk Representative E-Sig: Report: MRI brain without and with [...] Staff: ARCENIO LEYVA, Staff Radiologist Verified by prosthetic makeup designer for ARCENIO LEYVA /ARCENIO AVILA-[facility] Sep 06, 2024 01:40 PM MRI C SPINE W & W/ O CONTRAST(FURTHER SEQUENCES): LUIS MANUEL PERDOMO [id number] -1945 M Exm Date: SEP 06, 2024@13:40 Req Phys: FRANCK TURNERISIAHFLOSav Pat Loc: 5-MED/TEL/09-07-2024@06:42 Img Loc: [facility] Service: [place] [address] (Case [id number] COMPLETE) MRI C SPINE W & W/O CONTRAST(FURT(MRI Detailed) CPT:37250 Contrast Media : Gadolinium Reason for Study: SEE CLINICAL HISTORY Pharmaceutical: GADOTERIDOL 279.3MG/ML 20ML INJ, 19ml Clinical History: STATUS OF PLAIN FILMS:Not performed (Provide justification for MR W/O prior plain films below.) MRI for MS MRI Screening (Required): IMPLANTED DEVICE DOCUMENTATION IMPLANTED DEVICE DOCUMENTATION NOT FOUND Does the [place] have any Cardiac Implants? None Does the [place] have any implanted stimulators? None Does the [place] have cochlear implants? No Does the have Cerebral aneurysm clip(s)? I don't know Does the [place] have any shrapnel? I don't know If [...] 07, 2024 Date Verified: SEP 07, 2024 Desk Representative E-Sig: Report: EXAMINATION: MRI OF THE CERVICAL [...] Interpreting Staff: HUANG TAI, Radiologist Verified by prosthetic makeup designer for HUANG TAI /HUANG WHEATLEY-MALKA [facility] Sep 03, 2024 10:45 AM CHEST SINGLE(1) EW: LUIS MANUEL PERDOMO [id number] -1945 M Exm Date: SEP 03, 2024@10:45 Req Phys: FRANCK TURNER Pat Loc: 5-MED/TEL/09-03-2024@10:56 Img Loc: [facility] RADIOLOGY Service: [place] [address] (Case [id number] COMPLETE)CHEST SINGLE(1) VIEW (RAD Detailed) CPT:56558 Proc Modifiers : PORTABLE EXAM Reason for Study: Eval volume status Clinical History: Report Status: Verified Date Reported: SEP 03, 2024 Date Verified: SEP 03, 2024 Desk Representative E-Sig: Report: EXAMINATION: SINGLE VIEW CHEST CLINICAL [...] Interpreting Staff: HUANG TAI, Radiologist Verified by prosthetic makeup designer for HUANG TAI /HUANG WHEATLEY-CDD [facility] Aug 29, 2024 08:[address] HEAD W/O CONT: LUIS MANUEL PERDOMO [id number] -1945 M Exm Date: AUG 29, 2024@20:28 Req Phys: FELISA COLE Loc: ED/4P-12A (Req'g Loc) Img Loc: CT SCAN Service: [place] [id number] (Case [id number] COMPLETE) CT HEAD W/O CONT (CT Detailed) CPT:30367 Reason for Study: SEE CLINICAL HISTORY Clinical History: REASON FOR SEND OUT: ATTENDING PHYSICIAN NAME: New transient neurological s/s - suspected TIA HISTORY/REASON FOR EXAM: confusion Report Status: Verified Date Reported: AUG 29, 2024 Date Verified: AUG 29, 2024 Desk Representative E-Sig: Report: HISTORY confusion COMPARISON No prior [...] Staff: ABDIRAHMAN CROW, Staff Physician Verified by prosthetic makeup designer for ABDIRAHMAN CROW /[facility] [...] PORT: Reporting Lab: [facility] [CLIA# [id number]] [address] [place] [id number] Accession [UID]: [id number] [[id number]] Received: Sep 03, 2024@14:02 Collection sample: URINE, [...] Report Performed By: [facility] [CLIA# [id number]] [address] [place] [id number] [facility] Sep 02, 2024 06:00 PM LR MICROBIOLOGY RE PORT: Reporting Lab: [facility] [CLIA# [id number]] [address] [place] [address] Accession [UID]: [id number] [[id number]] Received: Sep 02, 2024@18:07 Collection sample: BLD CULTURE BOTTLES Collection date: Sep 02, 2024 18:00 Site/Specimen: BLOOD Provider: FRANCK TURNER Comment on specimen: L HAND Test(s) ordered: CULTURE, BLOOD................ completed: Sep 08, 2024 * BACTERIOLOGY FINAL REPORT => Sep 08, 2024 08:25 TECH CODE: [id number] Bacteriology Remark(s): Blood culture status=NO GROWTH (unless notified otherwise) 09/03/2024 AEROBIC: NO GROWTH ANAEROBIC: NO GROWTH =--=--=--=--=--=--=--=--=--=-- =--=--=--=--=--=--=--=--=--=-- =--=--=--=--=--=-- Performing Laboratory: Bacteriology Report Performed By: [facility] [CLIA# [id number]] [address] [place] [address] MAGDY CALABRESE [facility] Aug 29, 2024 10:18 PM LR MICROBIOLOGY RE PORT: Reporting Lab: [facility] [CLIA# [id number]] [address] [place] [address] Accession [UID]: [id number] [[id number]] Received: Aug 29, 2024@22:18 Collection sample: URINE, CLEAN CATCH Collection date: Aug 29, 2024 22:18 Site/Specimen: URINE Provider: FELISA COLE Test(s) ordered: CULTURE, URINE................ completed: Aug 31, 2024 09:51 * BACTERIOLOGY FINAL REPORT => Aug 31, 2024 09:51 TECH CODE: [id number] Bacteriology Remark(s): NO GROWTH 08/30/2024 <10,000 CFU/ML. 08/31/2024 =--=--=--=--=--=--=--=--=--=-- =--=--=--=--=--=--=--=--=--=-- =--=--=--=--=--=-- Performing Laboratory: Bacteriology Report Performed By: [facility] [CLIA# [id number]] [address] [place] [address] MAGDY CALABRESE-[facility]
--- OUTSIDE RECORDS SUMMARY | 2024-09-07 02:21 | XMS_ITS ---
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 Role Phone YULISSA HENDERSON Primary [...] PLAN F Mar 24, 2014 PLAN F [id number] LUIS MANUEL PERDOMO PATIENT [facility] [place] [facility] PREFERRED PROVIDER ORGANIZAT ION (PPO) [facility] Sep 21, 2012 [id number] [phone] LUIS MANUEL PERDOMO PATIENT [employer] ([id number]) PRESCRIPT ION [id number] Sep 21, 2012 [id number] LUIS MANUEL PERDOMO PATIENT MEDICARE (WNR) MEDICARE (M) PART B Sep 21, 2012 PART B [id number] NOEMI PERDOMO PATIENT MEDICARE (WNR) MEDICARE (M) PART A Jan 22, 2011 PART A [id number] LEANNE, NOEMI PATIENT MEDICARE PART D (WNR) MEDICARE (M) PART D Mar 24, 2014 PART D [id number] LUIS MANUEL PERDOMO PATIENT Selected Encounter This section includes the information on record at [place] for the Encounter. Date/Time Encounter Type Encounter Description Reason Pro vider Source Sep 07, 2024 06:21 AM Inpatient Visit DAILY HOSPITALIZATION DATA [facility] Encounter Template Text not used by [place] Plan of Treatment: Future Appointments (+ 6 months) and Future Tests (+/- 45 days) The Plan of Treatment section includes future care activities for the patient from all [place] [facility]. This section includes future appointments [...] 13, 2024 08:00 AM AMBULATORY - NONE [facility] Sep 30, 2024 01:30 PM AMBULATORY [...] theEncounter. The data comes from all [facility] facilities. Test Date/Time Test Type Test Details Facility Name Sep 13, 2024 01:33 PM Consult Order [facility] Cons [employer] [facility] Lab Results: [...] Specimen Type: CAPILLARY Comment: Test performed by: [id number] Meter #: [id number] Ordering Provider: FRANCK TURNER Report Released Date/Time: Sep 09, 2024 12:33 PM Reporting Lab: [address] [address] Performing Lab: [address] [address] GLUCOSE-HAND MONITOR 116 mg/dL H Sep 09, 2024 06:07 AM [facility] GLUCOSE-HAND MONITOR CAPILLARY Specime n Type: CAPILLARY Comment: Test performed by: [id number] Meter #: [id number] Ordering Provider: FRANCK TURNER Report Released Date/Time: Sep 09, 2024 08:17 AM Reporting Lab: [address] [address] Performing Lab: [address] [address] GLUCOSE-HAND MONITOR 112 mg/dL H Sep 08, 2024 09:13 PM [facility] GLUCOSE-HAND MONITOR CAPILLARY Specime n Type: CAPILLARY Comment: Test performed by: [id number] Meter #: [id number] Ordering Provider: FRANCK TURNER Report Released Date/Time: Sep 08, 2024 09:31 PM Reporting Lab: [address] [address] Performing Lab: [address] [address] GLUCOSE-HAND MONITOR 107 mg/dL H Sep 08, 2024 03:49 PM [facility] GLUCOSE-HAND MONITOR CAPILLARY Specime n Type: CAPILLARY Comment: AAMIR RN notified Test performed by: [id number] Meter #: [id number] Ordering Provider: FRANCK TURNER Report Released Date/Time: Sep 08, 2024 04:33 PM Reporting Lab: [address] [address] Performing Lab: [address] [address] GLUCOSE-HAND MONITOR 162 mg/dL H Sep 08, 2024 11:43 AM [facility] GLUCOSE-HAND MONITOR CAPILLARY Specime n Type: CAPILLARY Comment: AAMIR RN notified Test performed by: [id number] Meter #: [id number] Ordering Provider: FRANCK TURNER Report Released Date/Time: Sep 08, 2024 12:03 PM Reporting Lab: [address] [address] Performing Lab: [address] [address] GLUCOSE-HAND MONITOR 133 mg/dL H Sep 08, 2024 06:13 AM [facility] GLUCOSE-HAND MONITOR CAPILLARY Specime n Type: CAPILLARY Comment: Test performed by: [id number] Meter #: [id number] Ordering Provider: FRANCK TURNER Report Released Date/Time: Sep 08, 2024 06:46 AM Reporting Lab: [address] [address] Performing Lab: [address] [address] GLUCOSE-HAND MONITOR 104 mg/dL H Sep 07, 2024 07:59 PM [facility] GLUCOSE-HAND MONITOR CAPILLARY Specime n Type: CAPILLARY Comment: Test performed by: [id number] Meter #: [id number] Ordering Provider: FRANCK TURNER Report Released Date/Time: Sep 07, 2024 09:05 PM Reporting Lab: [address] [address] Performing Lab: [address] [address] GLUCOSE-HAND MONITOR 107 mg/dL H Sep 07, 2024 04:39 PM [facility] GLUCOSE-HAND MONITOR CAPILLARY Specime n Type: CAPILLARY Comment: Test performed by: [id number] Meter #: [id number] Ordering Provider: FRANCK TURNER Report Released Date/Time: Sep 07, 2024 05:09 PM Reporting Lab: [address] [address] Performing Lab: [address] [address] GLUCOSE-HAND MONITOR 105 mg/dL H Sep 07, 2024 11:41 AM [facility] GLUCOSE-HAND MONITOR CAPILLARY Specime n Type: CAPILLARY Comment: Test performed by: [id number] Meter #: [id number] Ordering Provider: FRANCK TURNER Report Released Date/Time: Sep 07, 2024 12:41 PM Reporting Lab: [address] [address] Performing Lab: [address] [address] GLUCOSE-HAND MONITOR 144 mg/dL H Sep 07, 2024 05:56 AM [facility] GLUCOSE-HAND MONITOR CAPILLARY Specime n Type: CAPILLARY Comment: Test performed by: [id number] Meter #: [id number] Ordering Provider: FRANCK TURNER Report Released Date/Time: Sep 07, 2024 06:31 AM Reporting Lab: [address] [address] Performing Lab: [address] [address] GLUCOSE-HAND MONITOR 96 mg/dL Sep 06, 2024 08:10 PM [facility] GLUCOSE-HAND MONITOR CAPILLARY Specime n Type: CAPILLARY Comment: Test performed by: [id number] Meter #: [id number] Ordering Provider: FRANCK TURNER Report Released Date/Time: Sep 06, 2024 08:52 PM Reporting Lab: [address] [address] Performing Lab: [address] [address] GLUCOSE-HAND MONITOR 124 mg/dL H Sep 06, 2024 04:27 PM [facility] GLUCOSE-HAND MONITOR CAPILLARY Specime n Type: CAPILLARY Comment: Test performed by: [id number] Meter #: [id number] Ordering Provider: FRANCK TURNER Report Released Date/Time: Sep 06, 2024 05:15 PM Reporting Lab: [address] [address] Performing Lab: [address] [address] GLUCOSE-HAND MONITOR 107 mg/dL H Sep 06, 2024 12:12 PM [facility] GLUCOSE-HAND MONITOR CAPILLARY Specime n Type: CAPILLARY Comment: Test performed by: [id number] Meter #: [id number] Ordering Provider: FRANCK TURNER Report Released Date/Time: Sep 06, 2024 12:29 PM Reporting Lab: [address] [address] Performing Lab: [address] [address] GLUCOSE-HAND MONITOR 181 mg/dL H -Sep 06, 2024 06:13 AM [facility] GLUCOSE-HAND MONITOR CAPILLARY Specime n Type: CAPILLARY Comment: Test performed by: [id number] Meter #: [id number] Ordering Provider: FRANCK TURNER Report Released Date/Time: Sep 06, 2024 06:36 AM Reporting Lab: [address] [address] Performing Lab: [address] [address] GLUCOSE-HAND MONITOR 102 mg/dL H Sep 05, 2024 08:47 PM [facility] GLUCOSE-HAND MONITOR CAPILLARY Specime n Type: CAPILLARY Comment: Test performed by: [id number] Meter #: [id number] Ordering Provider: FRANCK TURNER Report Released Date/Time: Sep 06, 2024 02:13 AM Reporting Lab: [address] [address] Performing Lab: [address] [address] GLUCOSE-HAND MONITOR 103 mg/dL H Sep 05, 2024 04:40 PM [facility] GLUCOSE-HAND MONITOR CAPILLARY Specime n Type: CAPILLARY Comment: AAMIR RN notified Test performed by: [id number] Meter #: [id number] Ordering Provider: FRANCK TURNER Report Released Date/Time: Sep 05, 2024 05:11 PM Reporting Lab: [address] [address] Performing Lab: [address] [address] GLUCOSE-HAND MONITOR 113 mg/dL H Sep 05, 2024 12:06 PM [facility] GLUCOSE-HAND MONITOR CAPILLARY Specime n Type: CAPILLARY Comment: Test performed by: [id number] Meter #: [id number] Ordering Provider: FRANCK TURNER Report Released Date/Time: Sep 05, 2024 12:23 PM Reporting Lab: [address] [address] Performing Lab: [address] [address] GLUCOSE-HAND MONITOR 115 mg/dL H Sep 05, 2024 06:26 AM [facility] GLUCOSE-HAND MONITOR CAPILLARY Specime n Type: CAPILLARY Comment: AAMIR Correction Dose Test performed by: [id number] Meter #: [id number] Ordering Provider: FRANCK TURNER Report Released Date/Time: Sep 05, 2024 06:43 AM Reporting Lab: [address] [address] Performing Lab: [address] [address] GLUCOSE-HAND MONITOR 111 mg/dL H Sep 04, 2024 08:59 PM [facility] GLUCOSE-HAND MONITOR CAPILLARY Specime n Type: CAPILLARY Comment: AAMIR RN notified Test performed by: [id number] Meter #: [id number] Ordering Provider: FRANCK TURNER Report Released Date/Time: Sep 04, 2024 09:36 PM Reporting Lab: [address] [address] Performing Lab: [address] [address] GLUCOSE-HAND MONITOR 123 mg/dL H Sep 04, 2024 04:41 PM [facility] GLUCOSE-HAND MONITOR CAPILLARY Specime n Type: CAPILLARY Comment: AAMIR RN notified Test performed by: [id number] Meter #: [id number] Ordering Provider: FRANCK TURNER Report Released Date/Time: Sep 04, 2024 05:03 PM Reporting Lab: [address] [address] Performing Lab: [address] [address] GLUCOSE-HAND MONITOR 118 mg/dL H Sep 04, 2024 12:36 PM [facility] GLUCOSE-HAND MONITOR CAPILLARY Specime n Type: CAPILLARY Comment: AAMIR RN notified Test performed by: [id number] Meter #: [id number] Ordering Provider: FRANCK TURNER Report Released Date/Time: Sep 04, 2024 12:53 PM Reporting Lab: [address] [address] Performing Lab: [place] [address] GLUCOSE-HAND MONITOR 129 mg/dL H 71-99 Sep 04, 2024 12:03 PM [facility] RESPIRATORY VIRUS PANEL (BIOFIRE) NASOPHARYN X Specimen Type: NASOPHARYNX Comment: ~For Test: RESPIRATORY VIRUS PANEL (BIOFIRE) ~ORDER READ BACK TO: FRANCK TURNER 09/04/24@11:30 Ordering Provider: FRANCK TURNER Report Released Date/Time: Sep 04, 2024 11:33 AM Reporting Lab: [place] [phone] Performing Lab: [place] [phone] ADENOVIRUS (BIOFIRE) Not Detected -Not D etected [...] Sep 04, 2024 06:55 AM [facility] MAGNESIUM PLASMA Specimen Type: PLASM [...] 03, 2024 11:10 AM Reporting Lab: [facility] [address] [facility] [address] Performing Lab: [place] [address] [facility] [address] MAGNESIUM 1.8 mg/dL 1.6-2.6 Sep 04, 2024 06:55 AM [facility] PANEL 1 PLASMA Specimen Type: [...] Sep 03, 2024 11:10 AM Reporting Lab: [id number] [address] Performing Lab: [address] CREATININE 0.75 mg/dL 0.72-1.25 UREA NITROGEN 13 mg/dL 9-25 GLUCOSE 105 mg/dL H 74-100 SODIUM 128 mmol/L L 136-145 POTASSIUM 3.9 mmol/L 3.5-5.1 CHLORIDE 99 mmol/L 98-107 CO2 21 mmol/L L 22-29 CALCIUM 8.0 mg/dL L 8.4-10.2 ANION GAP 8 meq/L 3-19 eGFR (CKD-EPI) >90 Sep 04, 2024 06:02 AM [facility] GLUCOSE-HAND MONITOR CAPILLARY Specime n Type: CAPILLARY Comment: Test performed by: [id number] Meter #: [id number] Ordering Provider: FRANCK TURNER Report Released Date/Time: Sep 04, 2024 06:28 AM Reporting Lab: [address] Performing Lab: [address] GLUCOSE-HAND MONITOR 114 mg/dL H 71-99 Sep 03, 2024 05:19 PM [facility] GLUCOSE-HAND MONITOR CAPILLARY Specime n Type: CAPILLARY Comment: Test performed by: [id number] Meter #: [id number] Ordering Provider: FRANCK TURNER Report Released Date/Time: Sep 03, 2024 05:37 PM Reporting Lab: [address] Performing Lab: [address] [address] GLUCOSE-HAND MONITOR 124 mg/dL H 71-99 Sep 03, 2024 04:41 PM [facility] GLUCOSE-HAND MONITOR CAPILLARY Specime n Type: CAPILLARY Comment: Test performed by: [id number] Meter #: [id number] Ordering Provider: FRANCK TURNER Report Released Date/Time: Sep 03, 2024 06:09 PM Reporting Lab: [address] [address] Performing Lab: [address] [address] GLUCOSE-HAND MONITOR 112 mg/dL H 71-99 Sep 03, 2024 01:35 PM [facility] URINE LYTES URINE Specimen Type : URINE Comment: ~Altered mental status with no identifiable cause Ordering Provider: FRANCK TURNER Report Released Date/Time: Sep 02, 2024 04:44 PM Reporting Lab: [address] [address] Performing Lab: [address] [address] SODIUM 130 mmol/L POTASSIUM 47.6 mmol/L CHLORIDE 137 mmol/L Sep 03, 2024 01:35 PM [facility] CREATININE URINE Specimen Type: URINE Comment: ~Altered mental status with no identifiable cause Ordering Provider: FRANCK TURNER Report Released Date/Time: Sep 02, 2024 04:44 PM Reporting Lab: [address] [address] Performing Lab: [address] [address] CREATININE 150.9 mg/dL Sep 03, 2024 01:35 PM [facility] URINALYSIS WITH REFLEX TO CULTURE URINE Specimen Type: URINE Comment: ~Altered mental status with no identifiable cause Ordering Provider: FRANCK TURNER Report Released Date/Time: Sep 02, 2024 04:44 PM Reporting Lab: [address] [address] Performing Lab: [address] [address] URINE COLOR Yellow Colorless-Yellow APPEARANCE CLOUDY H [...] H 0-28 Sep 03, 2024 01:35 PM [facility] UREA NITROGEN URINE Specimen Type : URINE Comment: ~Altered mental status with no identifiable cause Ordering Provider: FRANCK TURNER Report Released Date/Time: Sep 02, 2024 04:44 PM Reporting Lab: [address] [address] Performing Lab: [address] [address] UREA NITROGEN 320 mg/dL Sep 03, 2024 01:35 PM [facility] OSMOLALITY URINE Specimen Type: URINE Comment: ~Altered mental status with no identifiable cause Ordering Provider: FRANCK TURNER Report Released Date/Time: Sep 02, 2024 04:44 PM Reporting Lab: [address] [address] Performing Lab: [place] [phone] OSMOLALITY 522 mosm/kg 38-1400 Sep 03, 2024 11:58 AM [facility] GLUCOSE-HAND MONITOR CAPILLARY Specime n Type: CAPILLARY Comment: AAMIR RN notified Test performed by: [id number] Meter #: [id number] Ordering Provider: FRANCK TURNER Report Released Date/Time: Sep 03, 2024 12:15 PM Reporting Lab: [address] [address] Performing Lab: [address] [address] GLUCOSE-HAND MONITOR 135 mg/dL H -Sep 03, 2024 07:09 AM [facility] GLUCOSE-HAND MONITOR CAPILLARY Specime n Type: CAPILLARY Comment: Test performed by: [id number] Meter #: [id number] Ordering Provider: FRANCK TURNER Report Released Date/Time: Sep 03, 2024 07:26 AM Reporting Lab: [address] [address] Performing Lab: [address] [address] GLUCOSE-HAND MONITOR 120 mg/dL H -Sep 03, 2024 07:05 AM [facility] CBC/PLT BLOOD Specimen Type: BLOOD No comment entered. Ordering Provider: FRANCK TURNER Report Released Date/Time: Sep 02, 2024 04:29 PM Reporting Lab: [address] [address] Performing Lab: [address] [address] WBC 6.9 10*3/uL 5.0-10.0 RBC 3.48 10*6/uL L 4.6-6.2 HGB 9.5 g/dL L 14.0-18.0 HCT 29.1 L 42.0-52.0 MCV 83.6 fL 80.0-94.0 MCH 27.3 pg 27.0-31.0 MCHC 32.6 g/dL 32.0-36.0 PLT 258 10*3/uL 150-450 MPV 10.3 fL 9.0-13.1 RDW 14.8 11.0-16.0 NRBC 0.0 0.0-0.0 Sep 03, 2024 07:05 AM [facility] MAGNESIUM PLASMA Specimen Type: PLASM [...] 02, 2024 04:29 PM Reporting Lab: [address] [address] Performing Lab: [address] [address] MAGNESIUM 1.7 mg/dL 1.6-2.6 Sep 03, 2024 07:05 AM [facility] GLYCOHEMOGLOBIN BLOOD Specimen Type: BLOOD Comment: Prediabetes: 5.7%-6.4% Diabetes: >= 6.5% [facility] guidelines for A1c interpretation: Glycemic control targets [...] 8.73 and 9.27. Ref: https://ngsp.org/CAPdata.asp. The in-house Axo[employer]-haystagg D-100 analyzer has a historical CV <= 2%. Contact the laboratory for further performance characteristics of this assay. Ordering Provider: ALSIP,FRANCK ROBERTDAVID Report Released Date/Time: Sep 02, 2024 04:29 PM Reporting Lab: [facility] [address] [facility] [address] Performing Lab: [address] [address] GLYCOHEMOGLOBIN 5.6 4.4-5.6 Sep 03, 2024 07:05 AM [facility] PANEL 1 PLASMA Specimen Type: [...] 02, 2024 04:29 PM Reporting Lab: [address] [address] Performing Lab: [address] [address] CREATININE 0.82 mg/dL 0.72-1.25 UREA NITROGEN 12 mg/dL 9-25 GLUCOSE 109 mg/dL H 74-100 SODIUM 129 mmol/L L 136-145 POTASSIUM 4.2 mmol/L 3.5-5.1 CHLORIDE 99 mmol/L 98-107 CO2 21 mmol/L L 22-29 CALCIUM 8.1 mg/dL L 8.4-10.2 ANION GAP 9 meq/L 3-19 eGFR (CKD-EPI) 90 Sep 03, 2024 07:05 AM [facility] OSMOLALITY SERUM Specimen Type: SERUM No comment entered. Ordering Provider: FRANCK TURNER Report Released Date/Time: Sep 02, 2024 04:44 PM Reporting Lab: [address] [address] Performing Lab: [address] [address] OSMOLALITY 271 mosm/kg L 280-300 Sep 02, 2024 08:15 PM [facility] GLUCOSE-HAND MONITOR CAPILLARY Specime n Type: CAPILLARY Comment: AAMIR DEXTER notified Test performed by: [id number] Meter #: [id number] Ordering Provider: FRANCK TURNER Report Released Date/Time: Sep 02, 2024 08:57 PM Reporting Lab: [address] [address] Performing Lab: [address] [address] GLUCOSE-HAND MONITOR 126 mg/dL H 71-99 Sep 02, 2024 06:10 PM [facility] MRSA SURVL NARES DNA NARES [...] 02, 2024 05:12 PM Reporting Lab: [address] [address] Performing Lab: [address] [address] MRSA SURVL NARES DNA Negative Negative Sep 02, 2024 05:36 PM [facility] GLUCOSE-HAND MONITOR CAPILLARY Specime n Type: CAPILLARY Comment: Test performed by: [id number] Meter #: [id number] Ordering Provider: FRANCK TURNER Report Released Date/Time: Sep 02, 2024 05:53 PM Reporting Lab: [address] [address] Performing Lab: [address] [address] GLUCOSE-HAND MONITOR 127 mg/dL H 71-99 Aug 29, 2024 10:04 PM [facility] URINALYSIS WITH REFLEX TO CULTURE URINE Specimen Type: URINE Comment: ~For Test: URINALYSIS WITH REFLEX TO CULTURE ~REORDER Ordering Provider: FELISA COLE Report Released Date/Time: Aug 29, 2024 09:36 PM Reporting Lab: [address] [address] Performing Lab: [address] [address] URINE COLOR Yellow Colorless-Yellow APPEARANCE Clear Clear [...] /[LPF] 0-28 Aug 29, 2024 08:32 PM [facility] SENSITIVITY TROPONIN I PLASMA Specimen [...] 29, 2024 07:55 PM Reporting Lab: [address] [address] Performing Lab: [address] [address] HIGH SENSITIVITY TROPONIN I 7 4-35 Aug 29, 2024 08:32 PM [facility] CBC/PLT BLOOD Specimen Type: BLOOD No comment entered. Ordering Provider: FELISA COLE Report Released Date/Time: Aug 29, 2024 07:55 PM Reporting Lab: [address] [address] Performing Lab: [address] [address] WBC 11.2 10*3/uL H 5.0-10.0 RBC 3.97 10*6/uL L 4.6-6.2 HGB 10.9 g/dL L 14.0-18.0 HCT 33.5 L 42.0-52.0 MCV 84.4 fL 80.0-94.0 MCH 27.5 pg 27.0-31.0 MCHC 32.5 g/dL 32.0-36.0 PLT 230 10*3/uL 150-450 MPV 10.2 fL 9.0-13.1 RDW 14.6 11.0-16.0 NRBC 0.0 0.0-0.0 Aug 29, 2024 08:32 PM [facility] PANEL 5 PLASMA Specimen Type: PLASM [...] 29, 2024 07:55 PM Reporting Lab: [address] [address] Performing Lab: [address] [address] CREATININE 0.85 mg/dL 0.72-1.25 UREA NITROGEN 15 [...] 07, 2024 09:02 PM 0 [place] [facility] Sep 07, 2024 08:01 PM 97.8 F 66 /min 148/76 mm[Hg] 16 /min 95 % 0 [facility] Sep 07, 2024 04:38 PM 97.0 F 61 /min 122/69 mm[Hg] 20 /min 94 % 0 [place] [facility] Sep 07, 2024 02:23 PM 0 [place] [facility] Sep 07, 2024 12:08 PM 62 /min 118/68 mm[Hg] [place] [facility] Advance Directives: All historical and current [...] 08, 2024 ADVANCE DIRECTIVE DISCUSSION [facility] Radiology Reports: +/- 30 [...] BRAIN W & W/O: LUIS MANUEL PERDOMO [id number] -1945 M Exm Date: SEP 06, 2024@13:40 Req Phys: FRANCK TURNER Loc: 5-MED/TEL/09-06-2024@19:09 Img Loc: [facility] Service: [place] [address] (Case [id number] COMPLETE) MRI BRAIN W & W/O (MRI Detailed) CPT:69248 Contrast Media : Gadolinium Reason for Study: SEE CLINICAL HISTORY Pharmaceutical: GADOTERIDOL 279.3MG/ML 20ML INJ, 19ml Clinical History: MRI Screening (Required): IMPLANTED DEVICE DOCUMENTATION IMPLANTED DEVICE DOCUMENTATION NOT FOUND Does the [place] have any Cardiac Implants? None Does the have any implanted stimulators? None Does the [place] have cochlear implants? No Does the have [...] 06, 2024 Date Verified: SEP 06, 2024 Atmospheric Physics Professor E-Sig: Report: MRI brain without and [...] Staff: ARCENIO LEYVA, Staff Radiologist Verified by curriculum designer for ARCENIO LEYVA /ARCENIO AVILA-[facility] Sep 06, 2024 01:40 PM MRI C SPINE W & W/ O CONTRAST(FURTHER SEQUENCES): LUIS MANUEL PERDOMO [id number] -1945 M Exm Date: SEP 06, 2024@13:40 Req Phys: FRANCK TURNERISIAHFLOSav Pat Loc: 5-MED/TEL/09-07-2024@06:42 Img Loc: [facility] Service: [place] [address] (Case [id number] COMPLETE) MRI C SPINE W & W/O CONTRAST(FURT(MRI Detailed) CPT:53073 Contrast Media : Gadolinium Reason for Study: SEE CLINICAL HISTORY Pharmaceutical: GADOTERIDOL 279.3MG/ML 20ML INJ, 19ml Clinical History: STATUS OF PLAIN FILMS:Not performed (Provide justification for MR W/O prior plain films below.) MRI for MS MRI Screening (Required): IMPLANTED DEVICE DOCUMENTATION IMPLANTED DEVICE DOCUMENTATION NOT FOUND Does the [place] have any Cardiac Implants? None Does the [place] have any implanted stimulators? None Does the [place] have cochlear implants? No Does the have Cerebral aneurysm clip(s)? I don't know Does the [place] have any shrapnel? I don't know If [...] 07, 2024 Date Verified: SEP 07, 2024 Atmospheric Physics Professor E-Sig: Report: EXAMINATION: MRI OF THE [...] Interpreting Staff: HUANG TAI, Radiologist Verified by curriculum designer for HUANG TAI /HUANG WHEATLEY-[facility]AL[facility] Sep 03, 2024 10:45 AM CHEST SINGLE(1) EW: LUIS MANUEL PERDOMO [id number] -1945 M Exm Date: SEP 03, 2024@10:45 Req Phys: FRANCK TURNER Pat Loc: 5-MED/TEL/09-03-2024@10:56 Img Loc: [facility] RADIOLOGY Service: [place] [address] (Case [id number] COMPLETE)CHEST SINGLE(1) VIEW (RAD Detailed) CPT:99514 Proc Modifiers : PORTABLE EXAM Reason for Study: Eval volume status Clinical History: Report Status: Verified Date Reported: SEP 03, 2024 Date Verified: SEP 03, 2024 Atmospheric Physics Professor E-Sig: Report: EXAMINATION: SINGLE VIEW CHEST [...] Interpreting Staff: HUANG TAI, Radiologist Verified by curriculum designer for HUANG TAI /HUANG WHEATLEY-[facility] Aug 29, 2024 08:[address] HEAD W/O CONT: LUIS MANUEL PERDOMO [id number] -1945 M Exm Date: AUG 29, 2024@20:28 Req Phys: FELISA COLE Loc: ED/4P-12A (Req'g Loc) Img Loc: CT SCAN Service: Unknown [place] [id number] (Case [id number] COMPLETE) CT HEAD W/O CONT (CT Detailed) CPT:52654 Reason for Study: SEE CLINICAL HISTORY Clinical History: REASON FOR SEND OUT: ATTENDING PHYSICIAN NAME: New transient neurological s/s - suspected TIA HISTORY/REASON FOR EXAM: confusion Report Status: Verified Date Reported: AUG 29, 2024 Date Verified: AUG 29, 2024 Atmospheric Physics Professor E-Sig: Report: HISTORY confusion COMPARISON No [...] Staff: ABDIRAHMAN CROW, Staff Physician Verified by curriculum designer for ABDIRAHMAN CROW /[facility] Pathology Reports: +/- 30 days of [...] Reporting Lab: [facility] [CLIA# [id number]] [address] [place] [id number] Accession [UID]: [id number] [[id number]] Received: Sep 03, 2024@14:02 Collection sample: URINE, [...] Performed By: [facility] [CLIA# [id number]] [address] [place] [id number] [facility] Sep 02, 2024 06:00 PM LR MICROBIOLOGY RE PORT: Reporting Lab: [facility] [CLIA# [id number]] [address] [place] [address] Accession [UID]: [id number] [[id number]] Received: Sep 02, 2024@18:07 Collection sample: BLD CULTURE BOTTLES Collection date: Sep 02, 2024 18:00 Site/Specimen: BLOOD Provider: FRANCK TURNER Comment on specimen: L HAND Test(s) ordered: CULTURE, BLOOD................ completed: Sep 08, 2024 * BACTERIOLOGY FINAL REPORT => Sep 08, 2024 08:25 TECH CODE: [id number] Bacteriology Remark(s): Blood culture status=NO GROWTH (unless notified otherwise) 09/03/2024 AEROBIC: NO GROWTH ANAEROBIC: NO GROWTH =--=--=--=--=--=--=--=--=--=-- =--=--=--=--=--=--=--=--=--=-- =--=--=--=--=--=-- Performing Laboratory: Bacteriology Report Performed By: [facility] [CLIA# [id number]] [address] [place] [address] [facility]RES[facility] Aug 29, 2024 10:18 PM LR MICROBIOLOGY RE PORT: Reporting Lab: [facility] [CLIA# [id number]] [address] [place] [address] Accession [UID]: [id number] [[id number]] Received: Aug 29, 2024@22:18 Collection sample: URINE, CLEAN CATCH Collection date: Aug 29, 2024 22:18 Site/Specimen: URINE Provider: FELISA COLE Test(s) ordered: CULTURE, URINE................ completed: Aug 31, 2024 09:51 * BACTERIOLOGY FINAL REPORT => Aug 31, 2024 09:51 TECH CODE: [id number] Bacteriology Remark(s): NO GROWTH 08/30/2024 <10,000 CFU/ML. 08/31/2024 =--=--=--=--=--=--=--=--=--=-- =--=--=--=--=--=--=--=--=--=-- =--=--=--=--=--=-- Performing Laboratory: Bacteriology Report Performed By: [facility] [CLIA# [id number]] [address] [place] [address] MAGDY CALABRESE-[facility]
--- OUTSIDE RECORDS SUMMARY | 2024-09-07 04:30 | XMS_ITS | Encounter Summary ---
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 Role Phone YULISSA HENDERSON [...] PLAN F Mar 24, 2014 PLAN F [id number] LUIS MANUEL PERDOMO PATIENT [facility] BLUECARD PREFERRED PROVIDER ORGANIZAT ION (PPO) [facility] Sep 21, 2012 [id number] [phone] LUIS MANUEL PERDOMO PATIENT [facility] ([id number]) PRESCRIPT ION [id number] Sep 21, 2012 [id number] LUIS MANUEL PERDOMO PATIENT MEDICARE (WNR) MEDICARE (M) PART B Sep 21, 2012 PART B [id number] [phone] [id number] NOEMI PERDOMO PATIENT MEDICARE (WNR) MEDICARE (M) PART A Jan 22, 2011 PART A [id number] NOEMI PERDOMO PATIENT MEDICARE PART D (WNR) MEDICARE (M) PART D Mar 24, 2014 PART D [id number] LUIS MANUEL PERDOMO PATIENT Selected Encounter This section includes the information on record at [place] for the Encounter. Date/Time Encounter Type Encounter Description Reason Pro vider Source Sep 07, 2024 08:30 AM Inpatient Visit SOCIAL WORK SERVICE I[facility] Encounter Template Text not used by [place] Plan of Treatment: Future Appointments (+ 6 months) and Future Tests (+/- 45 days) The Plan of Treatment section includes future care activities for the patient from all [place] [facility]. This section includes future [...] 13, 2024 08:00 AM [facility] Sep 30, 2024 01:30 PM AMBULATORY - SURGERY [place] [facility] Active, Pending, and Scheduled Orders This section includes a listing of several types of active, pending, and scheduled orders, including clinic medications orders, diagnostic test orders, procedure orders and consult orders; where the start date of the order is 45 days before the date of the Encounter or 45 days after the date of theEncounter. The data comes from all [facility]. Test Date/Time Test Type Test Details Facility Name Sep 13, 2024 01:33 PM Consult Order [facility] Cons Hearing Aid Repairer's Choice [facility] Lab Results: +/- [...] Type Comment Sep 09, 2024 12:16 PM [facility] GLUCOSE-HAND MONITOR CAPILLARY Specimen Type: CAPILLARY Comment: Test performed by: [id number] Meter #: [id number] Ordering Provider: FRANCK TURNER Report Released Date/Time: Sep 09, 2024 12:33 PM Reporting Lab: [address] [address] Performing Lab: [address] [address] GLUCOSE-HAND MONITOR 116 mg/dL H Sep 09, 2024 06:07 AM [facility] GLUCOSE-HAND MONITOR CAPILLARY Specime n Type: CAPILLARY Comment: Test performed by: [id number] Meter #: [id number] Ordering Provider: FRANCK TURNER Report Released Date/Time: Sep 09, 2024 08:17 AM Reporting Lab: [address] [address] Performing Lab: [address] [address] GLUCOSE-HAND MONITOR 112 mg/dL H Sep 08, 2024 09:13 PM [facility] GLUCOSE-HAND MONITOR CAPILLARY Specime n Type: CAPILLARY Comment: Test performed by: [id number] Meter #: [id number] Ordering Provider: FRANCK TURNER Report Released Date/Time: Sep 08, 2024 09:31 PM Reporting Lab: [address] [address] Performing Lab: [address] [address] GLUCOSE-HAND MONITOR 107 mg/dL H Sep 08, 2024 03:49 PM [facility] GLUCOSE-HAND MONITOR CAPILLARY Specime n Type: CAPILLARY Comment: AAMIR RN notified Test performed by: [id number] Meter #: [id number] Ordering Provider: FRANCK TURNER Report Released Date/Time: Sep 08, 2024 04:33 PM Reporting Lab: [address] [address] Performing Lab: [address] [address] GLUCOSE-HAND MONITOR 162 mg/dL H Sep 08, 2024 11:43 AM [facility] GLUCOSE-HAND MONITOR CAPILLARY Specime n Type: CAPILLARY Comment: AAMIR RN notified Test performed by: [id number] Meter #: [id number] Ordering Provider: FRANCK TURNER Report Released Date/Time: Sep 08, 2024 12:03 PM Reporting Lab: [address] [address] Performing Lab: [address] [address] GLUCOSE-HAND MONITOR 133 mg/dL H Sep 08, 2024 06:13 AM [facility] GLUCOSE-HAND MONITOR CAPILLARY Specime n Type: CAPILLARY Comment: Test performed by: [id number] Meter #: [id number] Ordering Provider: FRANCK TURNER Report Released Date/Time: Sep 08, 2024 06:46 AM Reporting Lab: [address] [address] Performing Lab: [address] [address] GLUCOSE-HAND MONITOR 104 mg/dL H Sep 07, 2024 07:59 PM [facility] GLUCOSE-HAND MONITOR CAPILLARY Specime n Type: CAPILLARY Comment: Test performed by: [id number] Meter #: [id number] Ordering Provider: FRANCK TURNER Report Released Date/Time: Sep 07, 2024 09:05 PM Reporting Lab: [address] [address] Performing Lab: [address] [address] GLUCOSE-HAND MONITOR 107 mg/dL H Sep 07, 2024 04:39 PM [facility] GLUCOSE-HAND MONITOR CAPILLARY Specime n Type: CAPILLARY Comment: Test performed by: [id number] Meter #: [id number] Ordering Provider: FRANCK TURNER Report Released Date/Time: Sep 07, 2024 05:09 PM Reporting Lab: [address] [address] Performing Lab: [address] [address] GLUCOSE-HAND MONITOR 105 mg/dL H Sep 07, 2024 11:41 AM [facility] GLUCOSE-HAND MONITOR CAPILLARY Specime n Type: CAPILLARY Comment: Test performed by: [id number] Meter #: [id number] Ordering Provider: FRANCK TURNER Report Released Date/Time: Sep 07, 2024 12:41 PM Reporting Lab: [address] [address] Performing Lab: [address] [address] GLUCOSE-HAND MONITOR 144 mg/dL H Sep 07, 2024 05:56 AM [facility] GLUCOSE-HAND MONITOR CAPILLARY Specime n Type: CAPILLARY Comment: Test performed by: [id number] Meter #: [id number] Ordering Provider: FRANCK TURNER Report Released Date/Time: Sep 07, 2024 06:31 AM Reporting Lab: [address] [address] Performing Lab: [address] [address] GLUCOSE-HAND MONITOR 96 mg/dL Sep 06, 2024 08:10 PM [facility] GLUCOSE-HAND MONITOR CAPILLARY Specime n Type: CAPILLARY Comment: Test performed by: [id number] Meter #: [id number] Ordering Provider: FRANCK TURNER Report Released Date/Time: Sep 06, 2024 08:52 PM Reporting Lab: [address] [address] Performing Lab: [address] [address] GLUCOSE-HAND MONITOR 124 mg/dL H Sep 06, 2024 04:27 PM [facility] GLUCOSE-HAND MONITOR CAPILLARY Specime n Type: CAPILLARY Comment: Test performed by: [id number] Meter #: [id number] Ordering Provider: FRANCK TURNER Report Released Date/Time: Sep 06, 2024 05:15 PM Reporting Lab: [address] [address] Performing Lab: [address] [address] GLUCOSE-HAND MONITOR 107 mg/dL H Sep 06, 2024 12:12 PM [facility] GLUCOSE-HAND MONITOR CAPILLARY Specime n Type: CAPILLARY Comment: Test performed by: [id number] Meter #: [id number] Ordering Provider: FRANCK TURNER Report Released Date/Time: Sep 06, 2024 12:29 PM Reporting Lab: [address] [address] Performing Lab: [address] [address] GLUCOSE-HAND MONITOR 181 mg/dL H Sep 06, 2024 06:13 AM [facility] GLUCOSE-HAND MONITOR CAPILLARY Specime n Type: CAPILLARY Comment: Test performed by: [id number] Meter #: [id number] Ordering Provider: FRANCK TURNER Report Released Date/Time: Sep 06, 2024 06:36 AM Reporting Lab: [address] [address] Performing Lab: [address] [address] GLUCOSE-HAND MONITOR 102 mg/dL H Sep 05, 2024 08:47 PM [facility] GLUCOSE-HAND MONITOR CAPILLARY Specime n Type: CAPILLARY Comment: Test performed by: [id number] Meter #: [id number] Ordering Provider: FRANCK TURNER Report Released Date/Time: Sep 06, 2024 02:13 AM Reporting Lab: [address] [address] Performing Lab: [address] [address] GLUCOSE-HAND MONITOR 103 mg/dL H Sep 05, 2024 04:40 PM [facility] GLUCOSE-HAND MONITOR CAPILLARY Specime n Type: CAPILLARY Comment: AAMIR RN notified Test performed by: [id number] Meter #: [id number] Ordering Provider: FRANCK TURNER Report Released Date/Time: Sep 05, 2024 05:11 PM Reporting Lab: [address] [address] Performing Lab: [address] [address] GLUCOSE-HAND MONITOR 113 mg/dL H Sep 05, 2024 12:06 PM [facility] GLUCOSE-HAND MONITOR CAPILLARY Specime n Type: CAPILLARY Comment: Test performed by: [id number] Meter #: [id number] Ordering Provider: FRANCK TURNER Report Released Date/Time: Sep 05, 2024 12:23 PM Reporting Lab: [address] [address] Performing Lab: [address] [address] GLUCOSE-HAND MONITOR 115 mg/dL H Sep 05, 2024 06:26 AM [facility] GLUCOSE-HAND MONITOR CAPILLARY Specime n Type: CAPILLARY Comment: AAMIR Correction Dose Test performed by: [id number] Meter #: [id number] Ordering Provider: FRANCK TURNER Report Released Date/Time: Sep 05, 2024 06:43 AM Reporting Lab: [address] [address] Performing Lab: [address] [address] GLUCOSE-HAND MONITOR 111 mg/dL H Sep 04, 2024 08:59 PM [facility] GLUCOSE-HAND MONITOR CAPILLARY Specime n Type: CAPILLARY Comment: AAMIR RN notified Test performed by: [id number] Meter #: [id number] Ordering Provider: FRANCK TURNER Report Released Date/Time: Sep 04, 2024 09:36 PM Reporting Lab: [address] [address] Performing Lab: [address] [address] GLUCOSE-HAND MONITOR 123 mg/dL H Sep 04, 2024 04:41 PM [facility] GLUCOSE-HAND MONITOR CAPILLARY Specime n Type: CAPILLARY Comment: AAMIR RN notified Test performed by: [id number] Meter #: [id number] Ordering Provider: FRANCK TURNER Report Released Date/Time: Sep 04, 2024 05:03 PM Reporting Lab: [address] [address] Performing Lab: [address] [address] GLUCOSE-HAND MONITOR 118 mg/dL H Sep 04, 2024 12:36 PM [facility] GLUCOSE-HAND MONITOR CAPILLARY Specime n Type: CAPILLARY Comment: AAMIR RN notified Test performed by: [id number] Meter #: [id number] Ordering Provider: FRANCK TURNER Report Released Date/Time: Sep 04, 2024 12:53 PM Reporting Lab: [address] [address] Performing Lab: [place] [phone] GLUCOSE-HAND MONITOR 129 mg/dL H 71-99 Sep 04, 2024 12:03 PM [facility] RESPIRATORY VIRUS PANEL (BIOFIRE) NASOPHARYN X Specimen Type: NASOPHARYNX Comment: ~For Test: RESPIRATORY VIRUS PANEL (BIOFIRE) ~ORDER READ BACK TO: FRANCK TURNER 09/04/24@11:30 Ordering Provider: FRANCK TURNER Report Released Date/Time: Sep 04, 2024 11:33 AM Reporting Lab: [place] [phone] Performing Lab: [place] [phone] ADENOVIRUS (BIOFIRE) Not Detected -Not D etected [...] 03, 2024 11:10 AM Reporting Lab: [facility] [address] [address] Performing Lab: [facility] [address] [facility] [address] MAGNESIUM 1.8 mg/dL 1.6-2.6 Sep 04, 2024 [...] Sep 03, 2024 11:10 AM Reporting Lab: [address] [address] Performing Lab: [address] [address] CREATININE 0.75 mg/dL 0.72-1.25 UREA NITROGEN 13 [...] n Type: CAPILLARY Comment: Test performed by: [id number] Meter #: [id number] Ordering Provider: FRANCK TURNER Report Released Date/Time: Sep 04, 2024 06:28 AM Reporting Lab: [address] [address] Performing Lab: [address] [address] GLUCOSE-HAND MONITOR 114 mg/dL H 71-99 Sep 03, 2024 05:19 PM [facility] GLUCOSE-HAND MONITOR CAPILLARY Specime n Type: CAPILLARY Comment: Test performed by: [id number] Meter #: [id number] Ordering Provider: FRANCK TURNER Report Released Date/Time: Sep 03, 2024 05:37 PM Reporting Lab: [address] [address] Performing Lab: [address] [address] GLUCOSE-HAND MONITOR 124 mg/dL H 71-99 Sep 03, 2024 04:41 PM [facility] GLUCOSE-HAND MONITOR CAPILLARY Specime n Type: CAPILLARY Comment: Test performed by: [id number] Meter #: [id number] Ordering Provider: FRANCK TURNER Report Released Date/Time: Sep 03, 2024 06:09 PM Reporting Lab: [address] [address] Performing Lab: [address] [address] GLUCOSE-HAND MONITOR 112 mg/dL H 71-99 Sep 03, 2024 01:35 PM [facility] CREATININE URINE Specimen Type: URINE Comment: ~Altered mental status with no identifiable cause Ordering Provider: FRANCK TURNER Report Released Date/Time: Sep 02, 2024 04:44 PM Reporting Lab: [facility] [address] [place] [address] Performing Lab: [address] [address] CREATININE 150.9 mg/dL Sep 03, 2024 01:35 PM [facility] URINE LYTES URINE Specimen Type : URINE Comment: ~Altered mental status with no identifiable cause Ordering Provider: FRANCK TURNER Report Released Date/Time: Sep 02, 2024 04:44 PM Reporting Lab: [address] [address] Performing Lab: [address] [address] SODIUM 130 mmol/L POTASSIUM 47.6 mmol/L CHLORIDE 137 mmol/L Sep 03, 2024 01:35 PM [facility] UREA NITROGEN URINE Specimen Type : URINE Comment: ~Altered mental status with no identifiable cause Ordering Provider: FRANCK TURNER Report Released Date/Time: Sep 02, 2024 04:44 PM Reporting Lab: [address] [address] Performing Lab: [address] [address] UREA NITROGEN 320 mg/dL Sep 03, 2024 01:35 PM [facility] OSMOLALITY URINE Specimen Type: URINE Comment: ~Altered mental status with no identifiable cause Ordering Provider: FRANCK TURNER Report Released Date/Time: Sep 02, 2024 04:44 PM Reporting Lab: [address] [address] Performing Lab: [address] [address] OSMOLALITY 522 mosm/kg 38-1400 Sep 03, 2024 01:35 PM [facility] URINALYSIS WITH REFLEX TO CULTURE URINE Specimen Type: URINE Comment: ~Altered mental status with no identifiable cause Ordering Provider: FRANCK TURNER Report Released Date/Time: Sep 02, 2024 04:44 PM Reporting Lab: [address] [address] Performing Lab: [address] [address] URINE COLOR Yellow Colorless-Yellow APPEARANCE CLOUDY H [...] H 0-28 Sep 03, 2024 11:58 AM [facility] GLUCOSE-HAND MONITOR CAPILLARY Specime n Type: CAPILLARY Comment: AAMIR RN notified Test performed by: [id number] Meter #: [id number] Ordering Provider: FRANCK TURNER Report Released Date/Time: Sep 03, 2024 12:15 PM Reporting Lab: [address] [address] Performing Lab: [address] [address] GLUCOSE-HAND MONITOR 135 mg/dL H Sep 03, 2024 07:09 AM [facility] GLUCOSE-HAND MONITOR CAPILLARY Specime n Type: CAPILLARY Comment: Test performed by: [id number] Meter #: [id number] Ordering Provider: FRANCK TURNER Report Released Date/Time: Sep 03, 2024 07:26 AM Reporting Lab: [address] [address] Performing Lab: [address] [address] GLUCOSE-HAND MONITOR 120 mg/dL H -Sep 03, 2024 07:05 AM [facility] CBC/PLT BLOOD Specimen Type: BLOOD No comment entered. Ordering Provider: FRANCK TURNER Report Released Date/Time: Sep 02, 2024 04:29 PM Reporting Lab: [address] [address] Performing Lab: [address] [address] WBC 6.9 10*3/uL 5.0-10.0 RBC 3.48 10*6/uL [...] Sep 02, 2024 04:29 PM Reporting Lab: [address] [address] Performing Lab: [address] [address] MAGNESIUM 1.7 mg/dL 1.6-2.6 Sep 03, 2024 [...] Sep 02, 2024 04:29 PM Reporting Lab: [address] [address] Performing Lab: [address] [address] CREATININE 0.82 mg/dL 0.72-1.25 UREA NITROGEN 12 [...] BLOOD Comment: Prediabetes: 5.7%-6.4% Diabetes: >= 6.5% [place] guidelines for A1c interpretation: Glycemic [...] 8.73 and 9.27. Ref: https://ngsp.org/CAPdata.asp. The in-house Privalia-be2 D-100 analyzer has a historical CV <= 2%. Contact the laboratory for further performance characteristics of this assay. Ordering Provider: FRANCK TURNER Report Released Date/Time: Sep 02, 2024 04:29 PM Reporting Lab: [address] [address] Performing Lab: [place] [phone] GLYCOHEMOGLOBIN 5.6 4.4-5.6 Sep 03, 2024 07:05 AM [facility] OSMOLALITY SERUM Specimen Type: SERUM No comment entered. Ordering Provider: FRANCK TURNER Report Released Date/Time: Sep 02, 2024 04:44 PM Reporting Lab: [address] [address] Performing Lab: [address] [address] OSMOLALITY 271 mosm/kg L 280-300 Sep 02, 2024 08:15 PM [facility] GLUCOSE-HAND MONITOR CAPILLARY Specime n Type: CAPILLARY Comment: AAMIR DEXTER notified Test performed by: [id number] Meter #: [id number] Ordering Provider: FRANCK TURNER Report Released Date/Time: Sep 02, 2024 08:57 PM Reporting Lab: [address] [address] Performing Lab: [address] [address] GLUCOSE-HAND MONITOR 126 mg/dL H 71-99 Sep [...] Sep 02, 2024 05:12 PM Reporting Lab: [address] [address] Performing Lab: [address] [address] MRSA SURVL NARES DNA Negative Negative Sep 02, 2024 05:36 PM [facility] GLUCOSE-HAND MONITOR CAPILLARY Specime n Type: CAPILLARY Comment: Test performed by: [id number] Meter #: [id number] Ordering Provider: FRANCK TURNER Report Released Date/Time: Sep 02, 2024 05:53 PM Reporting Lab: [address] [address] Performing Lab: [address] [address] GLUCOSE-HAND MONITOR 127 mg/dL H 71-99 Aug 29, 2024 10:04 PM [facility] URINALYSIS WITH REFLEX TO CULTURE URINE Specimen Type: URINE Comment: ~For Test: URINALYSIS WITH REFLEX TO CULTURE ~REORDER Ordering Provider: FELISA COLE Report Released Date/Time: Aug 29, 2024 09:36 PM Reporting Lab: [address] [address] Performing Lab: [address] [address] URINE COLOR Yellow Colorless-Yellow APPEARANCE Clear Clear [...] /[LPF] 0-28 Aug 29, 2024 08:32 PM [facility] HIGH SENSITIVITY TROPONIN I PLASMA [...] Aug 29, 2024 07:55 PM Reporting Lab: [address] [address] Performing Lab: [address] [address] HIGH SENSITIVITY TROPONIN I 7 4-35 Aug 29, 2024 08:32 PM [facility] CBC/PLT BLOOD Specimen Type: BLOOD No comment entered. Ordering Provider: FELISA COLE Report Released Date/Time: Aug 29, 2024 07:55 PM Reporting Lab: [address] [address] Performing Lab: [address] [address] WBC 11.2 10*3/uL H 5.0-10.0 RBC 3.97 10*6/uL L 4.6-6.2 HGB 10.9 g/dL L 14.0-18.0 HCT 33.5 L 42.0-52.0 MCV 84.4 fL 80.0-94.0 MCH 27.5 pg 27.0-31.0 MCHC 32.5 g/dL 32.0-36.0 PLT 230 10*3/uL 150-450 MPV 10.2 fL 9.0-13.1 RDW 14.6 11.0-16.0 NRBC 0.0 0.0-0.0 Aug 29, 2024 08:32 PM [facility]ASMA Specimen [...] Aug 29, 2024 07:55 PM Reporting Lab: [address] [address] Performing Lab: [address] [address] CREATININE 0.85 mg/dL 0.72-1.25 UREA NITROGEN 15 [...] and tobacco- related health factors from the [place] facility where the Encounter took place. Current Smoking Status This section includes the most current smoking, or tobacco-related health factor, from the [place] facility where the Encounter took place. Date/Time Current Smoking Status Comment Facil ity Feb 06, 2024 10:00 AM VA-TOBACCO USER SOME DAYS [facility] Tobacco Use History This section includes a history of the smoking, or tobacco-related health factors, that were collected on or before the date of the Encounter. The data comes from the [place] facility where the Encounter took place. 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 This section includes ALL of a patient's completed or amended [place] Advance and Rescinded Directives. The entries below indicate that a directive exists for the patient, but an actual copy is not included with this document. The data comes from all [facility]. Date Advance Directives Provider Source Mar 08, 2024 ADVANCE DIRECTIVE DISCUSSION [facility] Radiology Reports: +/- 30 days [...] BRAIN W & W/O: LUIS MANUEL PERDOMO [id number] -1945 M Exm Date: SEP 06, 2024@13:40 Req Phys: FRANCK TURNER Pat Loc: 5-MED/TEL/09-06-2024@19:09 Img Loc: [facility] Service: [place] [address] (Case [id number] COMPLETE) MRI BRAIN W & W/O (MRI Detailed) CPT:94830 Contrast Media : Gadolinium Reason for Study: SEE CLINICAL HISTORY Pharmaceutical: GADOTERIDOL 279.3MG/ML 20ML INJ, 19ml Clinical History: MRI Screening (Required): IMPLANTED DEVICE DOCUMENTATION IMPLANTED DEVICE DOCUMENTATION NOT FOUND Does the [place] have any Cardiac Implants? None Does the have any implanted stimulators? None Does the [place] have cochlear implants? No Does the [place] have Cerebral aneurysm clip(s)? I don't know [...] 06, 2024 Date Verified: SEP 06, 2024 Food Service Associate E-Sig: Report: MRI brain without and with [...] Staff: ARCENIO LEYVA, Staff Radiologist Verified by bacon stringer for ARCENIO LEYVA /ARCENIO AVILA-CDD [facility] Sep 06, 2024 01:40 PM MRI C SPINE W & W/ O CONTRAST(FURTHER SEQUENCES): LUIS MANUEL PERDOMO [id number] -1945 M Exm Date: SEP 06, 2024@13:40 Req Phys: FRANCK TURNER [facility] Loc: 5-MED/TEL/09-07-2024@06:42 Img Loc: [facility] Service: [place] [address] (Case [id number] COMPLETE) MRI C SPINE W & W/O CONTRAST(FURT(MRI Detailed) CPT:33649 Contrast Media : Gadolinium Reason for Study: SEE CLINICAL HISTORY Pharmaceutical: GADOTERIDOL 279.3MG/ML 20ML INJ, 19ml Clinical History: STATUS OF PLAIN FILMS:Not performed (Provide justification for MR W/O prior plain films below.) MRI for MS MRI Screening (Required): IMPLANTED DEVICE DOCUMENTATION IMPLANTED DEVICE DOCUMENTATION NOT FOUND Does the [place] have any Cardiac Implants? None Does the [place] have any implanted stimulators? None Does the have cochlear implants? No Does the [place] have Cerebral aneurysm clip(s)? I don't know Does the [place] have any shrapnel? I don't know If yes, where in your body? Please list other implants not listed above: MRI table has a weight limit of 551 lbs. [place] Weight: *212 lb [96.16 kg] (09/04/2024 05:19) Is this patient claustrophobic?: No REASON FOR EXAM: MULTIPLE SCLEROSIS (indicate suspected or established) PERTINENT PATIENT HISTORY: MS c/f flare Risk factors for GADOLINIUM NEPHROGENIC SYSTEMIC SCLEROSIS: Report Status: Verified Date Reported: SEP 07, 2024 Date Verified: SEP 07, 2024 Food Service Associate E-Sig: Report: EXAMINATION: MRI OF THE CERVICAL [...] Interpreting Staff: HUANG TAI, Radiologist Verified by bacon stringer for HUANG TAI /HUANG WHEATLEY-MALKA [facility] Sep 03, 2024 10:45 AM CHEST SINGLE(1) EW: LUIS MANUEL PERDOMO [id number] -1945 M Ex Date: SEP 03, 2024@10:45 Req Phys: FRANCK TURNER Faith Loc: 5-MED/TEL/09-03-2024@10:56 Img Loc: [facility] Service: [place] [address] (Case [id number] COMPLETE)CHEST SINGLE(1) VIEW (RAD Detailed) CPT:67815 Proc Modifiers : PORTABLE EXAM Reason for Study: Eval volume status Clinical History: Report Status: Verified Date Reported: SEP 03, 2024 Date Verified: SEP 03, 2024 Food Service Associate E-Sig: Report: EXAMINATION: SINGLE VIEW CHEST CLINICAL [...] Interpreting Staff: HUANG TAI, Radiologist Verified by bacon stringer for HUANG TAI /HUANG WHEATLEY-Sav [facility] Aug 29, 2024 08:[address] HEAD W/O CONT: LUIS MANUEL PERDOMO [id number] -1945 M Exm Date: AUG 29, 2024@20:28 Req Phys: FELISA COLE Loc: ED/4P-12A (Req'g Loc) Img Loc: CT SCAN Service: [place] [address] (Case [id number] COMPLETE) CT HEAD W/O CONT (CT Detailed) CPT:51312 Reason for Study: SEE CLINICAL HISTORY Clinical History: REASON FOR SEND OUT: ATTENDING PHYSICIAN NAME: New transient neurological s/s - suspected TIA HISTORY/REASON FOR EXAM: confusion Report Status: Verified Date Reported: AUG 29, 2024 Date Verified: AUG 29, 2024 Food Service Associate E-Sig: Report: HISTORY confusion COMPARISON No prior [...] Staff: ABDIRAHMAN CROW, Staff Physician Verified by bacon stringer for ABDIRAHMAN CROW /ABDIARHMAN [facility] Pathology Reports: +/- 30 days [...] Reporting Lab: [facility] [CLIA# [id number]] [address] [place] [id number] Accession [UID]: [id number] [[id number]] Received: Sep 03, 2024@14:02 Collection sample: URINE, [...] Performed By: [facility] [CLIA# [id number]] [address] [place] [id number] MAGDY CALABRESE [facility] Sep 02, 2024 06:00 PM LR MICROBIOLOGY RE PORT: Reporting Lab: [facility] [IA# [id number]] [address] [place] [id number] Accession [UID]: [id number] [[id number]] Received: Sep 02, 2024@18:07 Collection sample: BLD CULTURE BOTTLES Collection date: Sep 02, 2024 18:00 Site/Specimen: BLOOD Provider: FRANCK TURNER Comment on specimen: L HAND Test(s) ordered: CULTURE, BLOOD................ completed: Sep 08, 2024 * BACTERIOLOGY FINAL REPORT => Sep 08, 2024 08:25 TECH CODE: [id number] Bacteriology Remark(s): Blood culture status=NO GROWTH (unless notified otherwise) 09/03/2024 AEROBIC: NO GROWTH ANAEROBIC: NO GROWTH =--=--=--=--=--=--=--=--=--=-- =--=--=--=--=--=--=--=--=--=-- =--=--=--=--=--=-- Performing Laboratory: Bacteriology Report Performed By: [facility] [CLIA# [id number]] [address] [place] [id number] MAGDY CALABRESE [facility] Aug 29, 2024 10:18 PM LR MICROBIOLOGY RE PORT: Reporting Lab: [facility] [IA# [id number]] [address] [place] [id number] Accession [UID]: [id number] [[id number]] Received: Aug 29, 2024@22:18 Collection sample: URINE, CLEAN CATCH Collection date: Aug 29, 2024 22:18 Site/Specimen: URINE Provider: FELISA COLE Test(s) ordered: CULTURE, URINE................ completed: Aug 31, 2024 09:51 * BACTERIOLOGY FINAL REPORT => Aug 31, 2024 09:51 TECH CODE: [id number] Bacteriology Remark(s): NO GROWTH 08/30/2024 <10,000 CFU/ML. 08/31/2024 =--=--=--=--=--=--=--=--=--=-- =--=--=--=--=--=--=--=--=--=-- =--=--=--=--=--=-- Performing Laboratory: Bacteriology Report Performed By: [facility] [CLIA# [id number]] [address] [place] [address] MAGDY CALABRESE [facility] Encounter Notes: All associated encounter notes This section contains the clinical notes associated to the Encounter. Date/Time Encounter Note(s) Provider Source Sep 07, 2024 03:59 PM DISCHARGE PLAN: LOCAL TITLE: DISCHARGE PLAN-INTERDISCIPLINARY TEAM STANDARD TITLE: DISCHARGE PLAN DATE OF NOTE: SEP 07, 2024@15:59 ENTRY DATE: SEP 07, 2024@15:59:41 AUTHOR: GAEL ROSE EXP COSIGNER: URGENCY: STATUS: COMPLETED Interdisciplinary Huddle completed today, at which time we reviewed current medical issues and status update. In addition we discussed anticipated discharge date, potential barriers to discharge, and anticipated disposition. TEAM HUDDLE MEMBERS: Present today: RN SW RD [facility] PharmD Reason for Admission: #Weakness due to presumed new onset heart failure, type unspecified #Multiple sclerosis Who makes medical decisions on behalf of Patient? & spouse, Mental Health and Suicidality has been discussed in Team Huddle Yes. The team completed THE [facility] at huddle and no suicide concerns or mental health needs were reported. Additional comments for Interdisciplinary Issues in Daily Care and Discharge Planning: [place] status update provided. Per clinical team, [place] is medically stable for discharge today. [place] received recs for [facility], and family is discussing [place] returning home vs. [facility]. SW met with [place]/ at bedside to discuss SW/Discharge planning needs. [place] and both vocalized they are not in agreement with going to [facility], and would prefer assistance in-home. SW to provide this update to Case Management and Medicine team. Medicine team informed SW that the [place] has now agreed to [facility], and would like a referral sent to [place]. SW sending referral packet to [place] and has advised [facility], to provide any updates when available. [facility] [phone] [place]UD[place]TE Cuellar [phone] FINAL DISCHARGE PLAN: [facility] pending placement This provider is receiving ongoing supervision by Diane Suh LCSW, with regard to the mental health treatment of this patient. A total of 1 hour weekly supervision is obtained, and this patient's care is discussed as needed, in compliance with [facility] Direct[facility] 1027. /rosette/ GAEL ROSE [employer] WORK Signed: 09/07/2024 16:07 GAEL ROSE-[facility]
--- OUTSIDE RECORDS SUMMARY | 2024-09-07 04:48 | XMS_ITS ---
AL DAILY HOSPITALIZATION DATA [facility] Encounter Summary Created on: September 22, 2024 LUIS MANUEL PERDOMO : 1945 Sex: Male Author Name [facility] Organization [facility] Address [address] [place] [address] Care Team Providers Care Business Process Coordinator Name Role Phone YULISSA HENDERSON Primary [...] PLAN F Mar 24, 2014 PLAN F [id number] LUIS MANUEL PERDOMO PATIENT [facility] [place] [facility] PREFERRED PROVIDER ORGANIZAT ION (PPO) [facility] SLE Sep 21, 2012 [id number] LUIS MANUEL PERDOMO PATIENT [employer] ([id number]) PRESCRIPT ION WL3A Sep 21, 2012 [id number] LUIS MANUEL PERDOMO PATIENT MEDICARE (WNR) MEDICARE (M) PART B Sep 21, 2012 PART B [id number] NOEMI PERDOMO PATIENT MEDICARE (WNR) MEDICARE (M) PART A Jan 22, 2011 PART A [id number] LEANNE, NOEMI PATIENT MEDICARE PART D (WNR) MEDICARE (M) PART D Mar 24, 2014 PART D [id number] LUIS MANUEL PERDOMO PATIENT Selected Encounter This section includes the information on record at [place] for the Encounter. Date/Time Encounter Type Encounter Description Reason Pro vider Source Sep 07, 2024 08:48 AM Inpatient Visit DAILY HOSPITALIZATION DATA [facility] Encounter Template Text not used by [place] Plan of Treatment: Future Appointments (+ 6 months) and Future Tests (+/- 45 days) The Plan of Treatment section includes future care activities for the patient [facility] [place] [facility] This section includes future appointments [...] 13, 2024 08:00 AM [facility] Sep 30, 2024 01:30 PM AMBULATORY - SURGERY [facility] Active, Pending, and Scheduled Orders This section includes a listing of several types of active, pending, and scheduled orders, including clinic medications orders, diagnostic test orders, procedure orders and consult orders; where the start date of the order is 45 days before the date of the Encounter or 45 days after the date of theEncounter. The data comes from all [facility] facilities. Test Date/Time Test Type Test Details Facility Name Sep 13, 2024 01:33 PM Consult Order [facility] Cons Forklift Technician's Choice [facility] Lab Results: +/- [...] 09, 2024 12:16 PM [facility] GLUCOSE-HAND MONITOR CAPILLARY Specimen Type: CAPILLARY Comment: Test performed by: [id number] Meter #: [id number] Ordering Provider: FRANCK TURNER Report Released Date/Time: Sep 09, 2024 12:33 PM Reporting Lab: [address] [address] Performing Lab: [address] [address] GLUCOSE-HAND MONITOR 116 mg/dL H Sep 09, 2024 06:07 AM [facility] GLUCOSE-HAND MONITOR CAPILLARY Specime n Type: CAPILLARY Comment: Test performed by: [id number] Meter #: [id number] Ordering Provider: FRANCK TURNER Report Released Date/Time: Sep 09, 2024 08:17 AM Reporting Lab: [address] [address] Performing Lab: [address] [address] GLUCOSE-HAND MONITOR 112 mg/dL H Sep 08, 2024 09:13 PM [facility] GLUCOSE-HAND MONITOR CAPILLARY Specime n Type: CAPILLARY Comment: Test performed by: [id number] Meter #: [id number] Ordering Provider: FRANCK TURNER Report Released Date/Time: Sep 08, 2024 09:31 PM Reporting Lab: [address] [address] Performing Lab: [address] [address] GLUCOSE-HAND MONITOR 107 mg/dL H Sep 08, 2024 03:49 PM [facility] GLUCOSE-HAND MONITOR CAPILLARY Specime n Type: CAPILLARY Comment: AAMIR RN notified Test performed by: [id number] Meter #: [id number] Ordering Provider: FRANCK TURNER Report Released Date/Time: Sep 08, 2024 04:33 PM Reporting Lab: [address] [address] Performing Lab: [address] [address] GLUCOSE-HAND MONITOR 162 mg/dL H Sep 08, 2024 11:43 AM [facility] GLUCOSE-HAND MONITOR CAPILLARY Specime n Type: CAPILLARY Comment: AAMIR RN notified Test performed by: [id number] Meter #: [id number] Ordering Provider: FRANCK TURNER Report Released Date/Time: Sep 08, 2024 12:03 PM Reporting Lab: [address] [address] Performing Lab: [address] [address] GLUCOSE-HAND MONITOR 133 mg/dL H Sep 08, 2024 06:13 AM [facility] GLUCOSE-HAND MONITOR CAPILLARY Specime n Type: CAPILLARY Comment: Test performed by: [id number] Meter #: [id number] Ordering Provider: FRANCK TURNER Report Released Date/Time: Sep 08, 2024 06:46 AM Reporting Lab: [address] [address] Performing Lab: [address] [address] GLUCOSE-HAND MONITOR 104 mg/dL H Sep 07, 2024 07:59 PM [facility] GLUCOSE-HAND MONITOR CAPILLARY Specime n Type: CAPILLARY Comment: Test performed by: [id number] Meter #: [id number] Ordering Provider: FRANCK TURNER Report Released Date/Time: Sep 07, 2024 09:05 PM Reporting Lab: [address] [address] Performing Lab: [address] [address] GLUCOSE-HAND MONITOR 107 mg/dL H Sep 07, 2024 04:39 PM [facility] GLUCOSE-HAND MONITOR CAPILLARY Specime n Type: CAPILLARY Comment: Test performed by: [id number] Meter #: [id number] Ordering Provider: FRANCK TURNER Report Released Date/Time: Sep 07, 2024 05:09 PM Reporting Lab: [address] [address] Performing Lab: [address] [address] GLUCOSE-HAND MONITOR 105 mg/dL H Sep 07, 2024 11:41 AM [facility] GLUCOSE-HAND MONITOR CAPILLARY Specime n Type: CAPILLARY Comment: Test performed by: [id number] Meter #: [id number] Ordering Provider: FRANCK TURNER Report Released Date/Time: Sep 07, 2024 12:41 PM Reporting Lab: [address] [address] Performing Lab: [address] [address] GLUCOSE-HAND MONITOR 144 mg/dL H Sep 07, 2024 05:56 AM [facility] GLUCOSE-HAND MONITOR CAPILLARY Specime n Type: CAPILLARY Comment: Test performed by: [id number] Meter #: [id number] Ordering Provider: FRANCK TURNER Report Released Date/Time: Sep 07, 2024 06:31 AM Reporting Lab: [address] [address] Performing Lab: [address] [address] GLUCOSE-HAND MONITOR 96 mg/dL Sep 06, 2024 08:10 PM [facility] GLUCOSE-HAND MONITOR CAPILLARY Specime n Type: CAPILLARY Comment: Test performed by: [id number] Meter #: [id number] Ordering Provider: FRANCK TURNER Report Released Date/Time: Sep 06, 2024 08:52 PM Reporting Lab: [address] [address] Performing Lab: [address] [address] GLUCOSE-HAND MONITOR 124 mg/dL H Sep 06, 2024 04:27 PM [facility] GLUCOSE-HAND MONITOR CAPILLARY Specime n Type: CAPILLARY Comment: Test performed by: [id number] Meter #: [id number] Ordering Provider: FRANCK TURNER Report Released Date/Time: Sep 06, 2024 05:15 PM Reporting Lab: [address] [address] Performing Lab: [address] [address] GLUCOSE-HAND MONITOR 107 mg/dL H Sep 06, 2024 12:12 PM [facility] GLUCOSE-HAND MONITOR CAPILLARY Specime n Type: CAPILLARY Comment: Test performed by: [id number] Meter #: [id number] Ordering Provider: FRANCK TURNER Report Released Date/Time: Sep 06, 2024 12:29 PM Reporting Lab: [address] [address] Performing Lab: [address] [address] GLUCOSE-HAND MONITOR 181 mg/dL H -Sep 06, 2024 06:13 AM [facility] GLUCOSE-HAND MONITOR CAPILLARY Specime n Type: CAPILLARY Comment: Test performed by: [id number] Meter #: [id number] Ordering Provider: FRANCK TURNER Report Released Date/Time: Sep 06, 2024 06:36 AM Reporting Lab: [address] [address] Performing Lab: [address] [address] GLUCOSE-HAND MONITOR 102 mg/dL H Sep 05, 2024 08:47 PM [facility] GLUCOSE-HAND MONITOR CAPILLARY Specime n Type: CAPILLARY Comment: Test performed by: [id number] Meter #: [id number] Ordering Provider: FRANCK TURNER Report Released Date/Time: Sep 06, 2024 02:13 AM Reporting Lab: [address] [address] Performing Lab: [address] [address] GLUCOSE-HAND MONITOR 103 mg/dL H Sep 05, 2024 04:40 PM [facility] GLUCOSE-HAND MONITOR CAPILLARY Specime n Type: CAPILLARY Comment: AAMIR RN notified Test performed by: [id number] Meter #: [id number] Ordering Provider: FRANCK TURNER Report Released Date/Time: Sep 05, 2024 05:11 PM Reporting Lab: [address] [address] Performing Lab: [address] [address] GLUCOSE-HAND MONITOR 113 mg/dL H Sep 05, 2024 12:06 PM [facility] GLUCOSE-HAND MONITOR CAPILLARY Specime n Type: CAPILLARY Comment: Test performed by: [id number] Meter #: [id number] Ordering Provider: FRANCK TURNER Report Released Date/Time: Sep 05, 2024 12:23 PM Reporting Lab: [address] [address] Performing Lab: [address] [address] GLUCOSE-HAND MONITOR 115 mg/dL H Sep 05, 2024 06:26 AM [facility] GLUCOSE-HAND MONITOR CAPILLARY Specime n Type: CAPILLARY Comment: AAMIR Correction Dose Test performed by: [id number] Meter #: [id number] Ordering Provider: FRANCK TURNER Report Released Date/Time: Sep 05, 2024 06:43 AM Reporting Lab: [address] [address] Performing Lab: [address] [address] GLUCOSE-HAND MONITOR 111 mg/dL H Sep 04, 2024 08:59 PM [facility] GLUCOSE-HAND MONITOR CAPILLARY Specime n Type: CAPILLARY Comment: AAMIR RN notified Test performed by: [id number] Meter #: [id number] Ordering Provider: FRANCK TURNER Report Released Date/Time: Sep 04, 2024 09:36 PM Reporting Lab: [address] [address] Performing Lab: [address] [address] GLUCOSE-HAND MONITOR 123 mg/dL H Sep 04, 2024 04:41 PM [facility] GLUCOSE-HAND MONITOR CAPILLARY Specime n Type: CAPILLARY Comment: AAMIR RN notified Test performed by: [id number] Meter #: [id number] Ordering Provider: FRANCK TURNER Report Released Date/Time: Sep 04, 2024 05:03 PM Reporting Lab: [address] [address] Performing Lab: [address] [address] GLUCOSE-HAND MONITOR 118 mg/dL H Sep 04, 2024 12:36 PM [facility] GLUCOSE-HAND MONITOR CAPILLARY Specime n Type: CAPILLARY Comment: AAMIR RN notified Test performed by: [id number] Meter #: [id number] Ordering Provider: FRANCK TURNER Report Released Date/Time: Sep 04, 2024 12:53 PM Reporting Lab: [address] [address] Performing Lab: [place] [address] GLUCOSE-HAND MONITOR 129 mg/dL H 71-99 Sep 04, 2024 12:03 PM [facility] RESPIRATORY VIRUS PANEL (BIOFIRE) NASOPHARYN X Specimen Type: NASOPHARYNX Comment: ~For Test: RESPIRATORY VIRUS PANEL (BIOFIRE) ~ORDER READ BACK TO: FRANCK TURNER 09/04/24@11:30 Ordering Provider: FRANCK TURNER Report Released Date/Time: Sep 04, 2024 11:33 AM Reporting Lab: [place] [phone] Performing Lab: [place] [phone] ADENOVIRUS (BIOFIRE) Not Detected -Not D etected [...] Reporting Lab: [place] [facility] [address] [facility] [address] Performing Lab: [place] [address] [facility] [address] MAGNESIUM 1.8 mg/dL 1.6-2.6 Sep 04, 2024 [...] 03, 2024 11:10 AM Reporting Lab: [address] [address] Performing Lab: [address] CREATININE 0.75 mg/dL 0.72-1.25 [facility] [...] n Type: CAPILLARY Comment: Test performed by: [id number] Meter #: [id number] Ordering Provider: FRANCK TURNER Report Released Date/Time: Sep 04, 2024 06:28 AM Reporting Lab: [address] Performing Lab: [address] GLUCOSE-HAND MONITOR 114 mg/dL H 71-99 Sep 03, 2024 05:19 PM [facility] GLUCOSE-HAND MONITOR CAPILLARY Specime n Type: CAPILLARY Comment: Test performed by: [id number] Meter #: [id number] Ordering Provider: FRANCK TURNER Report Released Date/Time: Sep 03, 2024 05:37 PM Reporting Lab: [address] Performing Lab: [address] [address] GLUCOSE-HAND MONITOR 124 mg/dL H 71-99 Sep 03, 2024 04:41 PM [facility] GLUCOSE-HAND MONITOR CAPILLARY Specime n Type: CAPILLARY Comment: Test performed by: [id number] Meter #: [id number] Ordering Provider: FRANCK TURNER Report Released Date/Time: Sep 03, 2024 06:09 PM Reporting Lab: [address] [address] Performing Lab: [address] [address] GLUCOSE-HAND MONITOR 112 mg/dL H 71-99 Sep 03, 2024 01:35 PM [facility] CREATININE URINE Specimen Type: URINE Comment: ~Altered mental status with no identifiable cause Ordering Provider: FRANCK TURNER Report Released Date/Time: Sep 02, 2024 04:44 PM Reporting Lab: [facility] [address] [place] [address] Performing Lab: [address] [address] CREATININE 150.9 mg/dL Sep 03, 2024 01:35 PM [facility] URINE LYTES URINE Specimen Type : URINE Comment: ~Altered mental status with no identifiable cause Ordering Provider: FRANCK TURNER Report Released Date/Time: Sep 02, 2024 04:44 PM Reporting Lab: [address] [address] Performing Lab: [address] [address] SODIUM 130 mmol/L POTASSIUM 47.6 mmol/L CHLORIDE 137 mmol/L Sep 03, 2024 01:35 PM [facility] UREA NITROGEN URINE Specimen Type : URINE Comment: ~Altered mental status with no identifiable cause Ordering Provider: FRANCK TURNER Report Released Date/Time: Sep 02, 2024 04:44 PM Reporting Lab: [address] [address] Performing Lab: [address] [address] UREA NITROGEN 320 mg/dL Sep 03, 2024 01:35 PM [facility] OSMOLALITY URINE Specimen Type: URINE Comment: ~Altered mental status with no identifiable cause Ordering Provider: FRANCK TURNER Report Released Date/Time: Sep 02, 2024 04:44 PM Reporting Lab: [address] [address] Performing Lab: [address] [address] OSMOLALITY 522 mosm/kg 38-1400 Sep 03, 2024 01:35 PM [facility] URINALYSIS WITH REFLEX TO CULTURE URINE Specimen Type: URINE Comment: ~Altered mental status with no identifiable cause Ordering Provider: FRANCK TURNER Report Released Date/Time: Sep 02, 2024 04:44 PM Reporting Lab: [address] [address] Performing Lab: [address] [address] URINE COLOR Yellow Colorless-Yellow APPEARANCE CLOUDY H [...] Comment: AAMIR RN notified Test performed by: [id number] Meter #: [id number] Ordering Provider: FRANCK TURNER Report Released Date/Time: Sep 03, 2024 12:15 PM Reporting Lab: [address] [address] Performing Lab: [address] [address] GLUCOSE-HAND MONITOR 135 mg/dL H Sep 03, 2024 07:09 AM [facility] GLUCOSE-HAND MONITOR CAPILLARY Specime n Type: CAPILLARY Comment: Test performed by: [id number] Meter #: [id number] Ordering Provider: FRANCK TURNER Report Released Date/Time: Sep 03, 2024 07:26 AM Reporting Lab: [address] [address] Performing Lab: [address] [address] GLUCOSE-HAND MONITOR 120 mg/dL H -Sep 03, [...] 02, 2024 04:29 PM Reporting Lab: [address] [address] Performing Lab: [address] [address] MAGNESIUM 1.7 mg/dL 1.6-2.6 Sep 03, 2024 07:05 AM [facility] CBC/PLT BLOOD Specimen Type: BLOOD No comment entered. Ordering Provider: FRANCK TURNER Report Released Date/Time: Sep 02, 2024 04:29 PM Reporting Lab: [facility] [address] [facility] [address] Performing Lab: [address] [address] WBC 6.9 10*3/uL 5.0-10.0 RBC 3.48 10*6/uL [...] 02, 2024 04:29 PM Reporting Lab: [address] [address] Performing Lab: [address] [address] CREATININE 0.82 mg/dL 0.72-1.25 [facility] NITROGEN 12 [...] BLOOD Comment: Prediabetes: 5.7%-6.4% Diabetes: >= 6.5% [facility] guidelines for A1c interpretation: Glycemic control targets are based on Shared Decision Making between clinicians and patients. Criteria used to establish an A1c target recommendation can be found at https://www.oh.gov/qualityandpatientsafety/ and include the use of result accuracy [...] 8.73 and 9.27. Ref: https://ngsp.org/CAPdata.asp. The in-house [employer] D-100 analyzer has a historical CV <= 2%. Contact the laboratory for further performance characteristics of this assay. Ordering Provider: FRANCK TURNER Report Released Date/Time: Sep 02, 2024 04:29 PM Reporting Lab: [address] [address] Performing Lab: [place] [phone] GLYCOHEMOGLOBIN 5.6 4.4-5.6 Sep 03, 2024 07:05 AM [facility] OSMOLALITY SERUM Specimen Type: SERUM No comment entered. Ordering Provider: FRANCK TURNER Report Released Date/Time: Sep 02, 2024 04:44 PM Reporting Lab: [address] [address] Performing Lab: [address] [address] OSMOLALITY 271 mosm/kg L 280-300 Sep 02, 2024 08:15 PM [facility] GLUCOSE-HAND MONITOR CAPILLARY Specime n Type: CAPILLARY Comment: AMAIR DEXTER notified Test performed by: [id number] Meter #: [id number] Ordering Provider: FRANCK TURNER Report Released Date/Time: Sep 02, 2024 08:57 PM Reporting Lab: [address] [address] Performing Lab: [address] [address] GLUCOSE-HAND MONITOR 126 mg/dL H 71-99 Sep [...] 02, 2024 05:12 PM Reporting Lab: [address] [address] Performing Lab: [address] [address] MRSA SURVL NARES DNA Negative Negative Sep 02, 2024 05:36 PM [facility] GLUCOSE-HAND MONITOR CAPILLARY Specime n Type: CAPILLARY Comment: Test performed by: [id number] Meter #: [id number] Ordering Provider: FRANCK TURNER Report Released Date/Time: Sep 02, 2024 05:53 PM Reporting Lab: [address] [address] Performing Lab: [address] [address] GLUCOSE-HAND MONITOR 127 mg/dL H 71-99 Aug 29, 2024 10:04 PM [facility] URINALYSIS WITH REFLEX TO CULTURE URINE Specimen Type: URINE Comment: ~For Test: URINALYSIS WITH REFLEX TO CULTURE ~REORDER Ordering Provider: FELISA COLE Report Released Date/Time: Aug 29, 2024 09:36 PM Reporting Lab: [address] [address] Performing Lab: [address] [address] URINE COLOR Yellow Colorless-Yellow APPEARANCE Clear Clear [...] /[LPF] 0-28 Aug 29, 2024 08:32 PM [facility] HIGH SENSITIVITY TROPONIN I PLASMA [...] 29, 2024 07:55 PM Reporting Lab: [address] [address] Performing Lab: [address] [address] HIGH SENSITIVITY TROPONIN I 7 4-35 Aug 29, 2024 08:32 PM [facility] CBC/PLT BLOOD Specimen Type: BLOOD No comment entered. Ordering Provider: FELISA COLE Report Released Date/Time: Aug 29, 2024 07:55 PM Reporting Lab: [address] [address] Performing Lab: [address] [address] WBC 11.2 10*3/uL H 5.0-10.0 RBC 3.97 10*6/uL L 4.6-6.2 HGB 10.9 g/dL L 14.0-18.0 HCT 33.5 L 42.0-52.0 MCV 84.4 fL 80.0-94.0 MCH 27.5 pg 27.0-31.0 MCHC 32.5 g/dL 32.0-36.0 PLT 230 10*3/uL 150-450 MPV 10.2 fL 9.0-13.1 RDW 14.6 11.0-16.0 NRBC 0.0 0.0-0.0 Aug 29, 2024 08:32 PM [facility] PANEL 5 PLASMA Specimen Type: [...] 29, 2024 07:55 PM Reporting Lab: [address] [address] Performing Lab: [address] [address] CREATININE 0.85 mg/dL 0.72-1.25 [facility] NITROGEN 15 [...] 07, 2024 09:02 PM 0 [place] [facility] Sep 07, 2024 08:01 PM 97.8 F 66 /min 148/76 mm[Hg] 16 /min 95 % [facility] Sep 07, 2024 04:38 PM 97.0 F 61 /min 122/69 mm[Hg] 20 /min 94 % 0 [place] [facility] Sep 07, 2024 02:23 PM 0 [place] [facility] Sep 07, 2024 12:08 PM 62 /min 118/68 mm[Hg] [place] [facility] Advance Directives: [...] 08, 2024 ADVANCE DIRECTIVE DISCUSSION [facility] Radiology Reports: +/- 30 days [...] BRAIN W & W/O: LUIS MANUEL PERDOMO [id number] -1945 M Exm Date: SEP 06, 2024@13:40 Req Phys: FRANCK TURNER Loc: 5-MED/TEL/09-06-2024@19:09 Img Loc: [facility] Service: [facility] [place] [address] (Case [id number] COMPLETE) MRI BRAIN W & W/O (MRI Detailed) CPT:46358 Contrast Media : Gadolinium Reason for Study: SEE CLINICAL HISTORY Pharmaceutical: GADOTERIDOL 279.3MG/ML 20ML INJ, 19ml Clinical History: MRI Screening (Required): IMPLANTED DEVICE DOCUMENTATION IMPLANTED DEVICE DOCUMENTATION NOT FOUND Does the [place] have any Cardiac Implants? None Does the have any implanted stimulators? None Does the [place] have cochlear implants? No Does the have [...] 06, 2024 Date Verified: SEP 06, 2024 Mine Manager E-Sig: Report: MRI brain without and [...] Staff: ARCENIO LEYVA, Staff Radiologist Verified by radio adjuster for ARCENIO LEYVA /ARCENIO AVILA-[facility]D [facility] Sep 06, 2024 01:40 PM MRI C SPINE W & W/ O CONTRAST(FURTHER SEQUENCES): LUIS MANUEL PERDOMO [id number] -1945 M Exm Date: SEP 06, 2024@13:40 Req Phys: FRANCK TURNERISIAHFLOSav Pat Loc: 5-MED/TEL/09-07-2024@06:42 Img Loc: [facility] Service: [facility] [place] [address] (Case [id number] COMPLETE) MRI C SPINE W & W/O CONTRAST(FURT(MRI Detailed) CPT:05070 Contrast Media : Gadolinium Reason for Study: SEE CLINICAL HISTORY Pharmaceutical: GADOTERIDOL 279.3MG/ML 20ML INJ, 19ml Clinical History: STATUS OF PLAIN FILMS:Not performed (Provide justification for MR W/O prior plain films below.) MRI for MS MRI Screening (Required): IMPLANTED DEVICE DOCUMENTATION IMPLANTED DEVICE DOCUMENTATION NOT FOUND Does the [place] have any Cardiac Implants? None Does the [place] have any implanted stimulators? None Does the [place] have cochlear implants? No Does the have Cerebral aneurysm clip(s)? I don't know Does the [place] have any shrapnel? I don't know If [...] 07, 2024 Date Verified: SEP 07, 2024 Mine Manager E-Sig: Report: EXAMINATION: MRI OF THE [...] Interpreting Staff: HUANG TAI, Radiologist Verified by radio adjuster for HUANG TAI /HUANG WHEATLEY-MALKA [facility] Sep 03, 2024 10:45 AM CHEST SINGLE(1) EW: LUIS MANUEL PERDOMO [id number] -1945 M Exm Date: SEP 03, 2024@10:45 Req Phys: FRANCK TURNER Pat Loc: 5-MED/TEL/09-03-2024@10:56 Img Loc: [facility] RADIOLOGY Service: [facility] [place] [address] (Case [id number] COMPLETE)CHEST SINGLE(1) VIEW (RAD Detailed) CPT:72429 Proc Modifiers : PORTABLE EXAM Reason for Study: Eval volume status Clinical History: Report Status: Verified Date Reported: SEP 03, 2024 Date Verified: SEP 03, 2024 Mine Manager E-Sig: Report: EXAMINATION: SINGLE VIEW CHEST [...] Interpreting Staff: HUANG TAI, Radiologist Verified by radio adjuster for HUANG TAI /HUANG WHEATLEY-[facility] Aug 29, 2024 08:[address] HEAD W/O CONT: LUIS MANUEL PERDOMO [id number] -1945 M Exm Date: AUG 29, 2024@20:28 Req Phys: FELISA COLE Loc: ED/4P-12A (Req'g Loc) Img Loc: CT SCAN Service: Unknown [place] [id number] (Case [id number] COMPLETE) CT HEAD W/O CONT (CT Detailed) CPT:84370 Reason for Study: SEE CLINICAL HISTORY Clinical History: REASON FOR SEND OUT: ATTENDING PHYSICIAN NAME: New transient neurological s/s - suspected TIA HISTORY/REASON FOR EXAM: confusion Report Status: Verified Date Reported: AUG 29, 2024 Date Verified: AUG 29, 2024 Mine Manager E-Sig: Report: HISTORY confusion COMPARISON No [...] Staff: ABDIRAHMAN CROW, Staff Physician Verified by radio adjuster for ABDIRAHMAN CROW /[facility]DIRAHMAN [facility] Pathology Reports: +/- 30 [...] Reporting Lab: [facility] [CLIA# [id number]] [address] [place] [id number] Accession [UID]: [id number] [[id number]] Received: Sep 03, 2024@14:02 Collection sample: URINE, [...] Performed By: [facility] [CLIA# [id number]] [address] [place] [id number] [facility] Sep 02, 2024 06:00 PM LR MICROBIOLOGY RE PORT: Reporting Lab: [facility] [CLIA# [id number]] [address] [place] [address] Accession [UID]: [id number] [[id number]] Received: Sep 02, 2024@18:07 Collection sample: BLD CULTURE BOTTLES Collection date: Sep 02, 2024 18:00 Site/Specimen: BLOOD Provider: FRANCK TURNER Comment on specimen: L HAND Test(s) ordered: CULTURE, BLOOD................ completed: Sep 08, 2024 * BACTERIOLOGY FINAL REPORT => Sep 08, 2024 08:25 TECH CODE: [id number] Bacteriology Remark(s): Blood culture status=NO GROWTH (unless notified otherwise) 09/03/2024 AEROBIC: NO GROWTH ANAEROBIC: NO GROWTH =--=--=--=--=--=--=--=--=--=-- =--=--=--=--=--=--=--=--=--=-- =--=--=--=--=--=-- Performing Laboratory: Bacteriology Report Performed By: [facility] [CLIA# [id number]] [address] [place] [address] MAGDY CALABRESE [facility] Aug 29, 2024 10:18 PM LR MICROBIOLOGY RE PORT: Reporting Lab: [facility] [CLIA# [id number]] [address] [place] [address] Accession [UID]: [id number] [[id number]] Received: Aug 29, 2024@22:18 Collection sample: URINE, CLEAN CATCH Collection date: Aug 29, 2024 22:18 Site/Specimen: URINE Provider: FELISA COLE Test(s) ordered: CULTURE, URINE................ completed: Aug 31, 2024 09:51 * BACTERIOLOGY FINAL REPORT => Aug 31, 2024 09:51 TECH CODE: [id number] Bacteriology Remark(s): NO GROWTH 08/30/2024 <10,000 CFU/ML. 08/31/2024 =--=--=--=--=--=--=--=--=--=-- =--=--=--=--=--=--=--=--=--=-- =--=--=--=--=--=-- Performing Laboratory: Bacteriology Report Performed By: [facility] [CLIA# [id number]] [address] [place] [address] MAGDY CALABRESE-[facility]
--- OUTSIDE RECORDS SUMMARY | 2024-09-07 07:40 | XMS_ITS | Encounter Summary ---
Author Name [facility] Organization [facility] [place] Address [address] [place] [id number] Care Team Providers Care Shoe Dresser Name Role Phone YULISSA HENDERSON Primary Care [...] PLAN F Mar 24, 2014 PLAN F [id number] LUIS MANUEL PERDOMO PATIENT [facility] [place] BLUECARD PREFERRED PROVIDER ORGANIZAT ION (PPO) [facility] Sep 21, 2012 [id number] LUIS MANUEL PERDOMO PATIENT [employer] ([id number]) PRESCRIPT ION [id number] Sep 21, 2012 [id number] LUIS MANUEL PERDOMO PATIENT MEDICARE (WNR) MEDICARE (M) PART B Sep 21, 2012 PART B [id number] NOEMI PERDOMO PATIENT MEDICARE (WNR) MEDICARE (M) PART A Jan 22, 2011 PART A [id number] NOEMI PERDOMO PATIENT MEDICARE PART D (WNR) MEDICARE (M) PART D Mar 24, 2014 PART D [id number] LUIS MANUEL PERDOMO PATIENT Selected Encounter This section includes the information on record at [place] for the Encounter. Date/Time Encounter Type Encounter Description Reason Provider Source Sep 07, 2024 11:40 AM SELF CARE MNGMENT TRAINING OCCUPATIONAL THERAPY ICD-10-CM M62.81 Muscle weakness (generalized) RASH,MARISSA IHE Encounter Template Text not used by [facility] Assessments - Encounter Diagnoses This section includes the primary and secondary diagnoses documented for the Encounter. Date/Time Primary/Secondary Diagnosis Diagnosis Name Provider Source Sep 07, 2024 02:51 PM PRIMARY Muscle weakness (generalized) RASH[facility]ISSA [facility] Plan of Treatment: Future Appointments (+ [...] 08:00 AM AMBULATORY - NONE [place] [facility] Sep 30, 2024 01:30 PM AMBULATORY - SURGERY [place] [facility] Active, Pending, and Scheduled Orders This section includes a listing of several types of active, pending, and scheduled orders, including clinic medications orders, diagnostic test orders, procedure orders and consult orders; where the start date of the order is 45 days before the date of the Encounter or 45 days after the date of theEncounter. The data comes from all [place] treatment facilities. Test Date/Time Test Type Test Details Facility Name Sep 13, 2024 01:33 PM Consult Order [facility] Cons Web Site Designer's Choice [facility] Lab Results: +/- 30 days of [...] Type Comment Sep 09, 2024 12:[address] [facility] GLUCOSE-HAND MONITOR CAPILLARY Specimen Type: CAPILLARY Comment: Test performed by: [id number] Meter #: [id number] Ordering Provider: FRANCK TURNER Report Released Date/Time: Sep 09, 2024 12:33 PM Reporting Lab: [address] [address] Performing Lab: [address] [address] GLUCOSE-HAND MONITOR 116 mg/dL H 71-99 Sep 09, 2024 06:07 AM [facility] GLUCOSE-HAND MONITOR CAPILLARY Specime n Type: CAPILLARY Comment: Test performed by: [id number] Meter #: [id number] Ordering Provider: FRANCK TURNER Report Released Date/Time: Sep 09, 2024 08:17 AM Reporting Lab: [address] [address] Performing Lab: [address] [address] GLUCOSE-HAND MONITOR 112 mg/dL H 71-99 Sep 08, 2024 09:13 PM [facility] GLUCOSE-HAND MONITOR CAPILLARY Specime n Type: CAPILLARY Comment: Test performed by: [id number] Meter #: [id number] Ordering Provider: FRANCK TURNER Report Released Date/Time: Sep 08, 2024 09:31 PM Reporting Lab: [address] [address] Performing Lab: [address] [address] GLUCOSE-HAND MONITOR 107 mg/dL H 71-99 Sep 08, 2024 03:49 PM [facility] GLUCOSE-HAND MONITOR CAPILLARY Specime n Type: CAPILLARY Comment: AAMIR RN notified Test performed by: [id number] Meter #: [id number] Ordering Provider: FRANCK TURNER Report Released Date/Time: Sep 08, 2024 04:33 PM Reporting Lab: [address] [address] Performing Lab: [place] [phone] GLUCOSE-HAND MONITOR 162 mg/dL H Sep 08, 2024 11:43 AM [facility] GLUCOSE-HAND MONITOR CAPILLARY Specime n Type: CAPILLARY Comment: AAMIR RN notified Test performed by: [id number] Meter #: [id number] Ordering Provider: FRANCK TURNER Report Released Date/Time: Sep 08, 2024 12:03 PM Reporting Lab: [address] [address] Performing Lab: [address] [address] GLUCOSE-HAND MONITOR 133 mg/dL H Sep 08, 2024 06:13 AM [facility] GLUCOSE-HAND MONITOR CAPILLARY Specime n Type: CAPILLARY Comment: Test performed by: [id number] Meter #: [id number] Ordering Provider: FRANCK TURNER Report Released Date/Time: Sep 08, 2024 06:46 AM Reporting Lab: [address] [address] Performing Lab: [address] [address] GLUCOSE-HAND MONITOR 104 mg/dL H Sep 07, 2024 07:59 PM [facility] GLUCOSE-HAND MONITOR CAPILLARY Specime n Type: CAPILLARY Comment: Test performed by: [id number] Meter #: [id number] Ordering Provider: FRANCK TURNER Report Released Date/Time: Sep 07, 2024 09:05 PM Reporting Lab: [address] [address] Performing Lab: [address] [address] GLUCOSE-HAND MONITOR 107 mg/dL H Sep 07, 2024 04:39 PM [facility] GLUCOSE-HAND MONITOR CAPILLARY Specime n Type: CAPILLARY Comment: Test performed by: [id number] Meter #: [id number] Ordering Provider: FRANCK TURNER Report Released Date/Time: Sep 07, 2024 05:09 PM Reporting Lab: [address] [address] Performing Lab: [address] [address] GLUCOSE-HAND MONITOR 105 mg/dL H -Sep 07, 2024 11:41 AM [facility] GLUCOSE-HAND MONITOR CAPILLARY Specime n Type: CAPILLARY Comment: Test performed by: [id number] Meter #: [id number] Ordering Provider: FRANCK TURNER Report Released Date/Time: Sep 07, 2024 12:41 PM Reporting Lab: [address] [address] Performing Lab: [address] [address] GLUCOSE-HAND MONITOR 144 mg/dL H -Sep 07, 2024 05:56 AM [facility] GLUCOSE-HAND MONITOR CAPILLARY Specime n Type: CAPILLARY Comment: Test performed by: [id number] Meter #: [id number] Ordering Provider: FRANCK TURNER Report Released Date/Time: Sep 07, 2024 06:31 AM Reporting Lab: [address] [address] Performing Lab: [address] [address] GLUCOSE-HAND MONITOR 96 mg/dL -Sep 06, 2024 08:10 PM [facility] GLUCOSE-HAND MONITOR CAPILLARY Specime n Type: CAPILLARY Comment: Test performed by: [id number] Meter #: [id number] Ordering Provider: FRANCK TURNER Report Released Date/Time: Sep 06, 2024 08:52 PM Reporting Lab: [address] [address] Performing Lab: [address] [address] GLUCOSE-HAND MONITOR 124 mg/dL H -Sep 06, 2024 04:27 PM [facility] GLUCOSE-HAND MONITOR CAPILLARY Specime n Type: CAPILLARY Comment: Test performed by: [id number] Meter #: [id number] Ordering Provider: FRANCK TURNER Report Released Date/Time: Sep 06, 2024 05:15 PM Reporting Lab: [address] [address] Performing Lab: [address] [address] GLUCOSE-HAND MONITOR 107 mg/dL H Sep 06, 2024 12:12 PM [facility] GLUCOSE-HAND MONITOR CAPILLARY Specime n Type: CAPILLARY Comment: Test performed by: [id number] Meter #: [id number] Ordering Provider: FRANCK TURNER Report Released Date/Time: Sep 06, 2024 12:29 PM Reporting Lab: [address] [address] Performing Lab: [place] [phone] GLUCOSE-HAND MONITOR 181 mg/dL H Sep 06, 2024 06:13 AM [facility] GLUCOSE-HAND MONITOR CAPILLARY Specime n Type: CAPILLARY Comment: Test performed by: [id number] Meter #: [id number] Ordering Provider: FRANCK TURNER Report Released Date/Time: Sep 06, 2024 06:36 AM Reporting Lab: [address] [address] Performing Lab: [address] [address] GLUCOSE-HAND MONITOR 102 mg/dL H Sep 05, 2024 08:47 PM [facility] GLUCOSE-HAND MONITOR CAPILLARY Specime n Type: CAPILLARY Comment: Test performed by: [id number] Meter #: [id number] Ordering Provider: FRANCK TURNER Report Released Date/Time: Sep 06, 2024 02:13 AM Reporting Lab: [address] [address] Performing Lab: [address] [address] GLUCOSE-HAND MONITOR 103 mg/dL H Sep 05, 2024 04:40 PM [facility] GLUCOSE-HAND MONITOR CAPILLARY Specime n Type: CAPILLARY Comment: AAMIR RN notified Test performed by: [id number] Meter #: [id number] Ordering Provider: FRANCK TURNER Report Released Date/Time: Sep 05, 2024 05:11 PM Reporting Lab: [id number] [address] Performing Lab: [address] [address] GLUCOSE-HAND MONITOR 113 mg/dL H -Sep 05, 2024 12:06 PM [facility] GLUCOSE-HAND MONITOR CAPILLARY Specime n Type: CAPILLARY Comment: Test performed by: [id number] Meter #: [id number] Ordering Provider: FRANCK TURNER Report Released Date/Time: Sep 05, 2024 12:23 PM Reporting Lab: [address] [address] Performing Lab: [address] [address] GLUCOSE-HAND MONITOR 115 mg/dL H -Sep 05, 2024 06:26 AM [facility] GLUCOSE-HAND MONITOR CAPILLARY Specime n Type: CAPILLARY Comment: AAMIR Correction Dose Test performed by: [id number] Meter #: [id number] Ordering Provider: FRANCK TURNER Report Released Date/Time: Sep 05, 2024 06:43 AM Reporting Lab: [address] [address] Performing Lab: [address] [address] GLUCOSE-HAND MONITOR 111 mg/dL H -Sep 04, 2024 08:59 PM [facility] GLUCOSE-HAND MONITOR CAPILLARY Specime n Type: CAPILLARY Comment: AAMIR RN notified Test performed by: [id number] Meter #: [id number] Ordering Provider: FRANCK TURNER Report Released Date/Time: Sep 04, 2024 09:36 PM Reporting Lab: [address] [address] Performing Lab: [address] [address] GLUCOSE-HAND MONITOR 123 mg/dL H -Sep 04, 2024 04:41 PM [facility] GLUCOSE-HAND MONITOR CAPILLARY Specime n Type: CAPILLARY Comment: AAMIR RN notified Test performed by: [id number] Meter #: [id number] Ordering Provider: FRANCK TURNER Report Released Date/Time: Sep 04, 2024 05:03 PM Reporting Lab: [place] [phone] Performing Lab: [place] [phone] GLUCOSE-HAND MONITOR 118 mg/dL H Sep 04, 2024 12:36 PM [facility] GLUCOSE-HAND MONITOR CAPILLARY Specime n Type: CAPILLARY Comment: AAMIR RN notified Test performed by: [id number] Meter #: [id number] Ordering Provider: FRANCK TURNER Report Released Date/Time: Sep 04, 2024 12:53 PM Reporting Lab: [place] [phone] Performing Lab: [place] [phone] GLUCOSE-HAND MONITOR 129 mg/dL H Sep 04, 2024 12:03 PM [facility] RESPIRATORY VIRUS PANEL (BIOFIRE) NASOPHARYN X Specimen Type: NASOPHARYNX Comment: ~For Test: RESPIRATORY VIRUS PANEL (BIOFIRE) ~ORDER READ BACK TO: FRANCK TUNRER 09/04/24@11:30 Ordering Provider: FRANCK TURNER Report Released Date/Time: Sep 04, 2024 11:33 AM Reporting Lab: [place] [address] Performing Lab: [place] [phone] ADENOVIRUS (BIOFIRE) Not Detected -Not D etected [...] Detected Sep 04, 2024 06:55 AM [facility] MAGNESIUM PLASMA Specimen Type: PLASM A [...] Sep 03, 2024 11:10 AM Reporting Lab: [address] [address] Performing Lab: [address] [address] MAGNESIUM 1.8 mg/dL 1.6-2.6 Sep 04, 2024 06:55 AM [facility] PANEL 1 PLASMA Specimen Type: PLASM [...] Sep 03, 2024 11:10 AM Reporting Lab: [address] [address] Performing Lab: [place] [phone] CREATININE 0.75 mg/dL 0.72-1.25 UREA NITROGEN 13 mg/dL 9-25 GLUCOSE 105 mg/dL H 74-100 SODIUM 128 mmol/L L 136-145 POTASSIUM 3.9 mmol/L 3.5-5.1 CHLORIDE 99 mmol/L 98-107 CO2 21 mmol/L L 22-29 CALCIUM 8.0 mg/dL L 8.4-10.2 ANION GAP 8 meq/L 3-19 eGFR (CKD-EPI) >90 Sep 04, 2024 06:02 AM [facility] GLUCOSE-HAND MONITOR CAPILLARY Specime n Type: CAPILLARY Comment: Test performed by: [id number] Meter #: [id number] Ordering Provider: FRANCK TURNER Report Released Date/Time: Sep 04, 2024 06:28 AM Reporting Lab: [address] [address] Performing Lab: [address] [address] GLUCOSE-HAND MONITOR 114 mg/dL H -Sep 03, 2024 05:19 PM [facility] GLUCOSE-HAND MONITOR CAPILLARY Specime n Type: CAPILLARY Comment: Test performed by: [id number] Meter #: [id number] Ordering Provider: FRANCK TURNER Report Released Date/Time: Sep 03, 2024 05:37 PM Reporting Lab: [place] [phone] Performing Lab: [place] [phone] GLUCOSE-HAND MONITOR 124 mg/dL H 71-99 Sep 03, 2024 04:41 PM [facility] GLUCOSE-HAND MONITOR CAPILLARY Specime n Type: CAPILLARY Comment: Test performed by: [id number] Meter #: [id number] Ordering Provider: FRANCK TURNER Report Released Date/Time: Sep 03, 2024 06:09 PM Reporting Lab: [address] [address] Performing Lab: [address] [address] GLUCOSE-HAND MONITOR 112 mg/dL H 71-99 Sep 03, 2024 01:35 PM [facility] URINE LYTES URINE Specimen Type : URINE Comment: ~Altered mental status with no identifiable cause Ordering Provider: FRANCK TURNER Report Released Date/Time: Sep 02, 2024 04:44 PM Reporting Lab: [address] [address] Performing Lab: [address] [address] SODIUM 130 mmol/L POTASSIUM 47.6 mmol/L CHLORIDE 137 mmol/L Sep 03, 2024 01:35 PM [facility] CREATININE URINE Specimen Type: URINE Comment: ~Altered mental status with no identifiable cause Ordering Provider: FRANCK TURNER Report Released Date/Time: Sep 02, 2024 04:44 PM Reporting Lab: [address] [address] Performing Lab: [address] [address] CREATININE 150.9 mg/dL Sep 03, 2024 01:35 PM [facility] UREA NITROGEN URINE Specimen Type : URINE Comment: ~Altered mental status with no identifiable cause Ordering Provider: FRANCK TURNER Report Released Date/Time: Sep 02, 2024 04:44 PM Reporting Lab: [address] [address] Performing Lab: [address] [address] UREA NITROGEN 320 mg/dL Sep 03, 2024 01:35 PM [facility] OSMOLALITY URINE Specimen Type: URINE Comment: ~Altered mental status with no identifiable cause Ordering Provider: FRANCK TURNER Report Released Date/Time: Sep 02, 2024 04:44 PM Reporting Lab: [address] [address] Performing Lab: [address] [address] OSMOLALITY 522 mosm/kg 38-1400 Sep 03, 2024 01:35 PM [facility] URINALYSIS WITH REFLEX TO CULTURE URINE Specimen Type: URINE Comment: ~Altered mental status with no identifiable cause Ordering Provider: FRANCK TURNER Report Released Date/Time: Sep 02, 2024 04:44 PM Reporting Lab: [address] [address] Performing Lab: [address] [address] URINE COLOR Yellow Colorless-Yellow APPEARANCE CLOUDY H [...] H 0-28 Sep 03, 2024 11:58 AM [facility] GLUCOSE-HAND MONITOR CAPILLARY Specime n Type: CAPILLARY Comment: AAMIR RN notified Test performed by: [id number] Meter #: [id number] Ordering Provider: FRANCK TURNER Report Released Date/Time: Sep 03, 2024 12:15 PM Reporting Lab: [address] [address] Performing Lab: [address] [address] GLUCOSE-HAND MONITOR 135 mg/dL H 71-99 Sep 03, 2024 07:09 AM [facility] GLUCOSE-HAND MONITOR CAPILLARY Specime n Type: CAPILLARY Comment: Test performed by: [id number] Meter #: [id number] Ordering Provider: FRANCK TURNER Report Released Date/Time: Sep 03, 2024 07:26 AM Reporting Lab: [facility] [address] [place] [address] Performing Lab: [address] [address] GLUCOSE-HAND MONITOR 120 mg/dL H 71-99 Sep 03, 2024 07:05 AM [facility] PANEL 1 PLASMA Specimen Type: PLASM [...] 02, 2024 04:29 PM Reporting Lab: [address] [address] Performing Lab: [address] [address] CREATININE 0.82 mg/dL 0.72-1.25 UREA NITROGEN 12 mg/dL 9-25 GLUCOSE 109 mg/dL H 74-100 SODIUM 129 mmol/L L 136-145 POTASSIUM 4.2 mmol/L 3.5-5.1 CHLORIDE 99 mmol/L 98-107 CO2 21 mmol/L L 22-29 CALCIUM 8.1 mg/dL L 8.4-10.2 ANION GAP 9 meq/L 3-19 eGFR (CKD-EPI) 90 Sep 03, 2024 07:05 AM [facility] CBC/PLT BLOOD Specimen Type: BLOOD No comment entered. Ordering Provider: FRANCK TURNER Report Released Date/Time: Sep 02, 2024 04:29 PM Reporting Lab: [address] [address] Performing Lab: [address] [address] WBC 6.9 10*3/uL 5.0-10.0 RBC 3.48 10*6/uL L 4.6-6.2 HGB 9.5 g/dL L 14.0-18.0 HCT 29.1 L 42.0-52.0 MCV 83.6 fL 80.0-94.0 MCH 27.3 pg 27.0-31.0 MCHC 32.6 g/dL 32.0-36.0 PLT 258 10*3/uL 150-450 MPV 10.3 fL 9.0-13.1 RDW 14.8 11.0-16.0 NRBC 0.0 0.0-0.0 Sep 03, 2024 07:05 AM [facility] MAGNESIUM PLASMA Specimen Type: PLASM A [...] Sep 02, 2024 04:29 PM Reporting Lab: [place] [id number] [facility] [address] Performing Lab: [address] [address] MAGNESIUM 1.7 mg/dL 1.6-2.6 Sep 03, 2024 07:05 AM [facility] GLYCOHEMOGLOBIN BLOOD Specimen Type: BLOOD Comment: Prediabetes: 5.7%-6.4% Diabetes: >= 6.5% [facility] guidelines for A1c interpretation: [...] 8.73 and 9.27. Ref: https://ngsp.org/CAPdata.asp. The in-house bepretty-Almondy D-100 analyzer has a historical CV <= 2%. Contact the laboratory for further performance characteristics of this assay. Ordering Provider: FRANCK TURNER Report Released Date/Time: Sep 02, 2024 04:29 PM Reporting Lab: [place] [phone] Performing Lab: [place] [phone] GLYCOHEMOGLOBIN 5.6 4.4-5.6 Sep 03, 2024 07:05 AM [facility] OSMOLALITY SERUM Specimen Type: SERUM No comment entered. Ordering Provider: FRANCK TURNER Report Released Date/Time: Sep 02, 2024 04:44 PM Reporting Lab: [address] [address] Performing Lab: [address] [address] OSMOLALITY 271 mosm/kg L 280-300 Sep 02, 2024 08:15 PM [facility] GLUCOSE-HAND MONITOR CAPILLARY Specime n Type: CAPILLARY Comment: AAMIR DEXTER notified Test performed by: [id number] Meter #: [id number] Ordering Provider: FRANCK TURNER Report Released Date/Time: Sep 02, 2024 08:57 PM Reporting Lab: [address] [address] Performing Lab: [address] [address] GLUCOSE-HAND MONITOR 126 mg/dL H 71-99 Sep 02, 2024 06:10 PM [facility] MRSA SURVL NARES DNA NARES Specime [...] Sep 02, 2024 05:12 PM Reporting Lab: [place] [phone] Performing Lab: [place] [phone] MRSA SURVL NARES DNA Negative Negative Sep 02, 2024 05:36 PM [facility] GLUCOSE-HAND MONITOR CAPILLARY Specime n Type: CAPILLARY Comment: Test performed by: [id number] Meter #: [id number] Ordering Provider: FRANCK TURNER Report Released Date/Time: Sep 02, 2024 05:53 PM Reporting Lab: [address] [address] Performing Lab: [place] [phone] GLUCOSE-HAND MONITOR 127 mg/dL H 71-99 Aug 29, 2024 10:04 PM [facility] URINALYSIS WITH REFLEX TO CULTURE URINE Specimen Type: URINE Comment: ~For Test: URINALYSIS WITH REFLEX TO CULTURE ~REORDER Ordering Provider: FELISA COLE Report Released Date/Time: Aug 29, 2024 09:36 PM Reporting Lab: [address] [address] Performing Lab: [address] [address] URINE COLOR Yellow Colorless-Yellow APPEARANCE Clear Clear [...] /[LPF] 0-28 Aug 29, 2024 08:32 PM [facility] HIGH SENSITIVITY TROPONIN I PLASMA Specimen [...] information resource can be reached in [facility] in the Tools menu, under the [...] 29, 2024 07:55 PM Reporting Lab: [address] [address] Performing Lab: [address] [address] HIGH SENSITIVITY TROPONIN I 7 4-35 Aug 29, 2024 08:32 PM [facility] CBC/PLT BLOOD Specimen Type: BLOOD No comment entered. Ordering Provider: FELISA COLE Report Released Date/Time: Aug 29, 2024 07:55 PM Reporting Lab: [address] [address] Performing Lab: [facility] [address] [facility] [address] WBC 11.2 10*3/uL H 5.0-10.0 RBC 3.97 10*6/uL L 4.6-6.2 HGB 10.9 g/dL L 14.0-18.0 HCT 33.5 L 42.0-52.0 MCV 84.4 fL 80.0-94.0 MCH 27.5 pg 27.0-31.0 MCHC 32.5 g/dL 32.0-36.0 PLT 230 10*3/uL 150-450 MPV 10.2 fL 9.0-13.1 RDW 14.6 11.0-16.0 NRBC 0.0 0.0-0.0 Aug 29, 2024 08:32 PM [facility] PANEL 5 PLASMA Specimen Type: PLASM [...] 29, 2024 07:55 PM Reporting Lab: [address] [address] Performing Lab: [address] [address] CREATININE 0.85 mg/dL 0.72-1.25 UREA NITROGEN 15 [...] 07, 2024 09:02 PM 0 [place] [facility] Sep 07, 2024 08:01 PM 97.8 F 66 /min 148/76 mm[Hg] 16 /min 95 % 0 [place] [facility] Sep 07, 2024 04:38 PM 97.0 F 61 /min 122/69 mm[Hg] 20 /min 94 % 0 [place] [facility] Sep 07, 2024 02:23 PM 0 [place] [facility] Sep 07, 2024 12:08 PM 62 /min 118/68 mm[Hg] [facility] Advance Directives: All historical and current [...] 08, 2024 ADVANCE DIRECTIVE DISCUSSION [facility] Radiology Reports: +/- 30 days of [...] BRAIN W & W/O: LUIS MANUEL PERDOMO [id number] -1945 M Exm Date: SEP 06, 2024@13:40 Req Phys: FRANCK TURNER Pat Loc: 5-MED/TEL/09-06-2024@19:09 Img Loc: [facility] Service: [place] [address] (Case [id number] COMPLETE) MRI BRAIN W & W/O (MRI Detailed) CPT:44166 Contrast Media : Gadolinium Reason for Study: SEE CLINICAL HISTORY Pharmaceutical: GADOTERIDOL 279.3MG/ML 20ML INJ, 19ml Clinical History: MRI Screening (Required): IMPLANTED DEVICE DOCUMENTATION IMPLANTED DEVICE DOCUMENTATION NOT FOUND Does the have any Cardiac Implants? None Does the have any implanted stimulators? None Does the [place] have cochlear implants? No Does the [place] have Cerebral aneurysm clip(s)? I don't know Does the [place] have any shrapnel? I don't know If [...] 06, 2024 Date Verified: SEP 06, 2024 Material Handling Technician E-Sig: Report: MRI brain without and [...] Staff: ARCENIO LEYVA, Staff Radiologist Verified by toy assembly supervisor for ARCENIO LEYVA /ARCENIO [facility] Sep 06, 2024 01:40 PM MRI C SPINE W & W/ O CONTRAST(FURTHER SEQUENCES): LUIS MANUEL PERDOMO [id number] -1945 M Exm Date: SEP 06, 2024@13:40 Req Phys: FRANCK TURNER [facility] Loc: 5-MED/TEL/09-07-2024@06:42 Img Loc: [facility] Service: [place] [address] (Case [id number] COMPLETE) MRI C SPINE W & W/O CONTRAST(FURT(MRI Detailed) CPT:12353 Contrast Media : Gadolinium Reason for Study: SEE CLINICAL HISTORY Pharmaceutical: GADOTERIDOL 279.3MG/ML 20ML INJ, 19ml Clinical History: STATUS OF PLAIN FILMS:Not performed (Provide justification for MR W/O prior plain films below.) MRI for MS MRI Screening (Required): IMPLANTED DEVICE DOCUMENTATION IMPLANTED DEVICE DOCUMENTATION NOT FOUND Does the [place] have any Cardiac Implants? None Does the [place] have any implanted stimulators? None Does the have cochlear implants? No Does the [place] have Cerebral aneurysm clip(s)? I don't know Does the [place] have any shrapnel? I don't know If yes, where in your body? Please list other implants not listed above: MRI table has a weight limit of 551 lbs. [place]'s Weight: *212 lb [96.16 kg] (09/04/2024 05:19) Is this patient claustrophobic?: No REASON FOR EXAM: MULTIPLE SCLEROSIS (indicate suspected or established) PERTINENT PATIENT HISTORY: MS c/f flare Risk factors for GADOLINIUM NEPHROGENIC SYSTEMIC SCLEROSIS: Report Status: Verified Date Reported: SEP 07, 2024 Date Verified: SEP 07, 2024 Material Handling Technician E-Sig: Report: EXAMINATION: MRI OF THE [...] Interpreting Staff: HUANG TAI, Radiologist Verified by toy assembly supervisor for HUANG TAI /HUANG WHEATLEY-MALKA [facility] Sep 03, 2024 10:45 AM CHEST SINGLE(1) EW: LUIS MANUEL PERDOMO [id number] -1945 M Exm Date: SEP 03, 2024@10:45 Req Phys: FRANCK TURNER [facility] Loc: 5-MED/TEL/09-03-2024@10:56 Img Loc: [facility] RADIOLOGY Service: [place] [address] (Case [id number] COMPLETE)CHEST SINGLE(1) VIEW (RAD Detailed) CPT:34792 Proc Modifiers : PORTABLE EXAM Reason for Study: Eval volume status Clinical History: Report Status: Verified Date Reported: SEP 03, 2024 Date Verified: SEP 03, 2024 Material Handling Technician E-Sig: Report: EXAMINATION: SINGLE VIEW CHEST [...] Interpreting Staff: HUANG TAI, Radiologist Verified by toy assembly supervisor for HUANG TAI /HUANG WHEATLEY-Sav [facility] Aug 29, 2024 08:[address] HEAD W/O CONT: LEANNELUIS MANUEL FINCH [id number] -1945 M Exm Date: AUG 29, 2024@20:28 Req Phys: FELISA COLE Loc: ED/4P-12A (Req'g Loc) Img Loc: CT SCAN Service: [place] [address] (Case [id number] COMPLETE) CT HEAD W/O CONT (CT Detailed) CPT:61505 Reason for Study: SEE CLINICAL HISTORY Clinical History: REASON FOR SEND OUT: ATTENDING PHYSICIAN NAME: New transient neurological s/s - suspected TIA HISTORY/REASON FOR EXAM: confusion Report Status: Verified Date Reported: AUG 29, 2024 Date Verified: AUG 29, 2024 Material Handling Technician E-Sig: Report: HISTORY confusion COMPARISON No [...] Staff: ABDIRAHMAN CROW, Staff Physician Verified by toy assembly supervisor for ABDIRAHMAN CROW /ABDIRAHMAN [facility] Pathology Reports: +/- 30 [...] Reporting Lab: [facility] [CLIA# [id number]] [address] [place] [id number] Accession [UID]: [id number] [[id number]] Received: Sep 03, 2024@14:02 Collection sample: URINE, [...] Report Performed By: [facility] [IA# [id number]] [address] [place], [place] [address] MAGDY CALABRESE [facility] Sep 02, 2024 06:00 PM LR MICROBIOLOGY RE PORT: Reporting Lab: [facility] [IA# [id number]] [address] [place], [place] [address] Accession [UID]: [id number] [[id number]] Received: Sep 02, 2024@18:07 Collection sample: BLD CULTURE BOTTLES Collection date: Sep 02, 2024 18:00 Site/Specimen: BLOOD Provider: FRANCK TURNER Comment on specimen: L HAND Test(s) ordered: CULTURE, BLOOD................ completed: Sep 08, 2024 * BACTERIOLOGY FINAL REPORT => Sep 08, 2024 08:25 [facility] CODE: [id number] Bacteriology Remark(s): Blood culture status=NO GROWTH (unless notified otherwise) 09/03/2024 AEROBIC: NO GROWTH ANAEROBIC: NO GROWTH =--=--=--=--=--=--=--=--=--=-- =--=--=--=--=--=--=--=--=--=-- =--=--=--=--=--=-- Performing Laboratory: Bacteriology Report Performed By: [facility] [CLIA# [id number]] [address] [place], [place] [id number] MAGDY CALABRESE [facility] Aug 29, 2024 10:18 PM LR MICROBIOLOGY RE PORT: Reporting Lab: [facility] [IA# [id number]] [address] [place] [address] Accession [UID]: [id number] [[id number]] Received: Aug 29, 2024@22:18 Collection sample: URINE, CLEAN CATCH Collection date: Aug 29, 2024 22:18 Site/Specimen: URINE Provider: FELISA COLE Test(s) ordered: CULTURE, URINE................ completed: Aug 31, 2024 09:51 * BACTERIOLOGY FINAL REPORT => Aug 31, 2024 09:51 TECH CODE: [id number] Bacteriology Remark(s): NO GROWTH 08/30/2024 <10,000 CFU/ML. 08/31/2024 =--=--=--=--=--=--=--=--=--=-- =--=--=--=--=--=--=--=--=--=-- =--=--=--=--=--=-- Performing Laboratory: Bacteriology Report Performed By: [facility] [CLIA# [id number]] [address] [place] [address] MAGDY CALABRESE [facility] Encounter Notes: All associated encounter notes This section contains the clinical notes associated to the Encounter. Date/Time Encounter Note(s) Provider Source Sep 07, 2024 11:40 AM OCCUPATIONAL MEDIC INE NOTE: LOCAL TITLE: OCCUPATIONAL THERAPY NOTE STANDARD TITLE: OCCUPATIONAL MEDICINE NOTE DATE OF NOTE: SEP 07, 2024@11:40 ENTRY DATE: SEP 07, 2024@14:38:32 AUTHOR: MARISSA HERRERA EXP COSIGNER: URGENCY: STATUS: COMPLETED Type: OT Tx Diagnosis: Suspected HF Reason for referral: OT eval and Recs Precautions: none Referring team: orange Time: 38 minutes ([id number]- 38 MINS) Social: Vet lives w/spouse in 2 story house w/ramp to enter. Reports recent fall. [place] stays on main level PLOF: Vet requires assistance w/nearly all BADLS @least w/50%. Is able to perform functional mobility w/AD to/from bathroom. Also able to perform toilet/shower chair transfers w/o assistance (only SBA) Equipment: walk in shower, shower chair, GB, HHSH, GB, handicap height toilet S. Seen on 5M, nursing ok'd, supine in bed upon arrival. RN and MD present end of session. [place] at end of session again became orthostatic and symptomatic (palor and lightheaded), BP (noted below). RN and medicine team resident present in room during episode. [place] improved by end of session and engaging w/RN and resident. Pt c/o and pain: none O: Vitals: BP: 87/52, 70/36, 105/63 o2: 94% on RA Lines: Pur wic 1LNC Oriented to: Person, Place, Time Command followin% BUE AROM: WFL Strength: BUE WFL FMC/coordination: WFL Cell Technician Strength:WFL Sensation: WFL Other: Sitting Balance (ADL):G Standing Balance (ADL):P Bed Mobility: NT in b/s chair on arrival ADLS As Follows: Feeding - s/u Grooming - TBD UBD - MIN A *sim LBD - MAX A *per observation Bathing(UB/LB)-MAX A *per observation Toileting- MAX A *per observation Toilet Transfer - deferred, unsafe to perform Tub/Shower Transfer-deferred, unsafe to perform Tx/Intervention: - supine<>sit: MOD A - sit to stand to RW: MAX A x 1 - stand to sit: MAX A X 1 - sit to stand to RW: MAX A X 1 - bed<>chair w/RW: MOD<>MAX A x 1 - becoming symptomatic again, put into supine position in chair (RN/MD present in room) education: - spouse/vet inquiring about d/c home - unsafe to d/c home, d/t HIGH RISK OF FALLS and w/drop in BP - spouse/vet/MD agreeable (although concern w/drop in BP for tolerance w/rehab) Equipment provided: TBD A: Vet is pleasant and cooperative with tx. He demonstrated G BUE function and sitting balance. P standing, requiring high level of assistance to perform transfer. Unsafe to return home. Most appropriate for rehab in [facility], as there is concern for potential LTP. Pt left at end of session: Seated in b/s chair, call light and side table in reach.Educated to call for assist w/ any needs he may have. Chair alarm in place, MD present in room. RN aware P: OT 3-5x weekly 1x daily for therapeutic activity/ exercise and self-care management Goals (STG/LTG): 1.) Perform UB/LB self-care tasks w/MOD A 2.) Perform ADL toilet/tub/shower transfers w/CGA 3.) Demo competency w/ AE/DME as needed for d/c DISCHARGE PLAN/DISPOSITION: Subacute Rehab /es/ MARISSA HERRERA OTR/L OCCUPATIONAL THERAPIST Signed: 09/07/2024 14:51 MARISSA HERRERA-MALKA [facility]
--- OUTSIDE RECORDS SUMMARY | 2024-09-07 07:57 | XMS_ITS | Encounter Summary ---
Author Name [facility] [place] [facility] [place] Address [address] [place] [address] Care Team Providers Care Er Registrar Name Role Phone YULISSA HENDERSON Primary Care [...] PLAN F Mar 24, 2014 PLAN F [id number] LUIS MANUEL PERDOMO PATIENT [facility] [place] [facility] PREFERRED PROVIDER ORGANIZAT ION (PPO) [facility] Sep 21, 2012 [id number] LUIS MANUEL PERDOMO PATIENT [employer] ([id number]) PRESCRIPT ION WL3A Sep 21, 2012 [id number] LUIS MANUEL PERDOMO PATIENT MEDICARE (WNR) MEDICARE (M) PART B Sep 21, 2012 PART B [id number] NOEMI PERDOMO PATIENT MEDICARE (WNR) MEDICARE (M) PART A Jan 22, 2011 PART A [id number] NOEMI PERDOMO PATIENT MEDICARE PART D (WNR) MEDICARE (M) PART D Mar 24, 2014 PART D [id number] LUIS MANUEL PERDOMO PATIENT Selected Encounter This section includes the information on record at [place] for the Encounter. Date/Time Encounter Type Encounter Description Reason Provider Source Sep 07, 2024 11:57 AM [facility] IP/OBS SF/LOW 25 NEUROSURGERY ALETA,CATALINA MARTINA IHE Encounter Template Text not used by [...] 08:00 AM AMBULATORY - NONE [place] [facility] Sep 30, 2024 01:30 PM AMBULATORY - SURGERY [place] [facility] Active, Pending, and Scheduled Orders [...] Sep 13, 2024 01:33 PM Consult Order [facility] SKILLED HOME CARE Cons Scrub Tech's Choice [facility] Lab Results: +/- 30 days of [...] Specimen Type: CAPILLARY Comment: Test performed by: [id number] Meter #: [id number] Ordering Provider: FRANCK TURNER Report Released Date/Time: Sep 09, 2024 12:33 PM Reporting Lab: [address] [address] Performing Lab: [address] [address] GLUCOSE-HAND MONITOR 116 mg/dL H Sep 09, 2024 06:07 AM [facility] GLUCOSE-HAND MONITOR CAPILLARY Specime n Type: CAPILLARY Comment: Test performed by: [id number] Meter #: [id number] Ordering Provider: FRANCK TURNER Report Released Date/Time: Sep 09, 2024 08:17 AM Reporting Lab: [address] [address] Performing Lab: [address] [address] GLUCOSE-HAND MONITOR 112 mg/dL H Sep 08, 2024 09:13 PM [facility] GLUCOSE-HAND MONITOR CAPILLARY Specime n Type: CAPILLARY Comment: Test performed by: [id number] Meter #: [id number] Ordering Provider: FRANCK TURNER Report Released Date/Time: Sep 08, 2024 09:31 PM Reporting Lab: [address] [address] Performing Lab: [address] [address] GLUCOSE-HAND MONITOR 107 mg/dL H Sep 08, 2024 03:49 PM [facility] GLUCOSE-HAND MONITOR CAPILLARY Specime n Type: CAPILLARY Comment: AAMIR RN notified Test performed by: [id number] Meter #: [id number] Ordering Provider: FRANCK TURNER Report Released Date/Time: Sep 08, 2024 04:33 PM Reporting Lab: [address] [address] Performing Lab: [address] [address] GLUCOSE-HAND MONITOR 162 mg/dL H Sep 08, 2024 11:43 AM [facility] GLUCOSE-HAND MONITOR CAPILLARY Specime n Type: CAPILLARY Comment: AAMIR RN notified Test performed by: [id number] Meter #: [id number] Ordering Provider: FRANCK TURNER Report Released Date/Time: Sep 08, 2024 12:03 PM Reporting Lab: [place] [id number] Performing Lab: [address] [address] GLUCOSE-HAND MONITOR 133 mg/dL H Sep 08, 2024 06:13 AM [facility] GLUCOSE-HAND MONITOR CAPILLARY Specime n Type: CAPILLARY Comment: Test performed by: [id number] Meter #: [id number] Ordering Provider: FRANCK TURNER Report Released Date/Time: Sep 08, 2024 06:46 AM Reporting Lab: [place] [id number] Performing Lab: [address] [address] GLUCOSE-HAND MONITOR 104 mg/dL H Sep 07, 2024 07:59 PM [facility] GLUCOSE-HAND MONITOR CAPILLARY Specime n Type: CAPILLARY Comment: Test performed by: [id number] Meter #: [id number] Ordering Provider: FRANCK TURNER Report Released Date/Time: Sep 07, 2024 09:05 PM Reporting Lab: [place] [id number] Performing Lab: [address] [address] GLUCOSE-HAND MONITOR 107 mg/dL H Sep 07, 2024 04:39 PM [facility] GLUCOSE-HAND MONITOR CAPILLARY Specime n Type: CAPILLARY Comment: Test performed by: [id number] Meter #: [id number] Ordering Provider: FRANCK TURNER Report Released Date/Time: Sep 07, 2024 05:09 PM Reporting Lab: [address] [address] Performing Lab: [address] [address] GLUCOSE-HAND MONITOR 105 mg/dL H Sep 07, 2024 11:41 AM [facility] GLUCOSE-HAND MONITOR CAPILLARY Specime n Type: CAPILLARY Comment: Test performed by: [id number] Meter #: [id number] Ordering Provider: FRANCK TURNER Report Released Date/Time: Sep 07, 2024 12:41 PM Reporting Lab: [place] [id number] Performing Lab: [place] [id number] GLUCOSE-HAND MONITOR 144 mg/dL H Sep 07, 2024 05:56 AM [facility] GLUCOSE-HAND MONITOR CAPILLARY Specime n Type: CAPILLARY Comment: Test performed by: [id number] Meter #: [id number] Ordering Provider: FRANCK TURNRE Report Released Date/Time: Sep 07, 2024 06:31 AM Reporting Lab: [place] [id number] Performing Lab: [place] [id number] GLUCOSE-HAND MONITOR 96 mg/dL Sep 06, 2024 08:10 PM [facility] GLUCOSE-HAND MONITOR CAPILLARY Specime n Type: CAPILLARY Comment: Test performed by: [id number] Meter #: [id number] Ordering Provider: FRANCK TURNER Report Released Date/Time: Sep 06, 2024 08:52 PM Reporting Lab: [place] [id number] Performing Lab: [place] [id number] GLUCOSE-HAND MONITOR 124 mg/dL H Sep 06, 2024 04:27 PM [facility] GLUCOSE-HAND MONITOR CAPILLARY Specime n Type: CAPILLARY Comment: Test performed by: [id number] Meter #: [id number] Ordering Provider: FRANCK TURNER Report Released Date/Time: Sep 06, 2024 05:15 PM Reporting Lab: [place] [id number] Performing Lab: [place] [id number] GLUCOSE-HAND MONITOR 107 mg/dL H Sep 06, 2024 12:12 PM [facility] GLUCOSE-HAND MONITOR CAPILLARY Specime n Type: CAPILLARY Comment: Test performed by: [id number] Meter #: [id number] Ordering Provider: FRANCK TURNER Report Released Date/Time: Sep 06, 2024 12:29 PM Reporting Lab: [address] [address] Performing Lab: [address] [address] GLUCOSE-HAND MONITOR 181 mg/dL H Sep 06, 2024 06:13 AM [facility] GLUCOSE-HAND MONITOR CAPILLARY Specime n Type: CAPILLARY Comment: Test performed by: [id number] Meter #: [id number] Ordering Provider: FRANCK TURNER Report Released Date/Time: Sep 06, 2024 06:36 AM Reporting Lab: [place] [id number] Performing Lab: [place] [id number] GLUCOSE-HAND MONITOR 102 mg/dL H Sep 05, 2024 08:47 PM [facility] GLUCOSE-HAND MONITOR CAPILLARY Specime n Type: CAPILLARY Comment: Test performed by: [id number] Meter #: [id number] Ordering Provider: FRANCK TURNER Report Released Date/Time: Sep 06, 2024 02:13 AM Reporting Lab: [address] [address] Performing Lab: [address] [address] GLUCOSE-HAND MONITOR 103 mg/dL H Sep 05, 2024 04:40 PM [facility] GLUCOSE-HAND MONITOR CAPILLARY Specime n Type: CAPILLARY Comment: AAMIR RN notified Test performed by: [id number] Meter #: [id number] Ordering Provider: FRANCK TURNER Report Released Date/Time: Sep 05, 2024 05:11 PM Reporting Lab: [address] [address] Performing Lab: [address] [address] GLUCOSE-HAND MONITOR 113 mg/dL H Sep 05, 2024 12:06 PM [facility] GLUCOSE-HAND MONITOR CAPILLARY Specime n Type: CAPILLARY Comment: Test performed by: [id number] Meter #: [id number] Ordering Provider: FRANCK TURNER Report Released Date/Time: Sep 05, 2024 12:23 PM Reporting Lab: [address] [address] Performing Lab: [address] [address] GLUCOSE-HAND MONITOR 115 mg/dL H -Sep 05, 2024 06:26 AM [facility] GLUCOSE-HAND MONITOR CAPILLARY Specime n Type: CAPILLARY Comment: AAMIR Correction Dose Test performed by: [id number] Meter #: [id number] Ordering Provider: FRANCK TURNER Report Released Date/Time: Sep 05, 2024 06:43 AM Reporting Lab: [address] [address] Performing Lab: [address] GLUCOSE-HAND MONITOR 111 mg/dL H Sep 04, 2024 08:59 PM [facility] GLUCOSE-HAND MONITOR CAPILLARY Specime n Type: CAPILLARY Comment: AAMIR RN notified Test performed by: [id number] Meter #: [id number] Ordering Provider: FRANCK TURNER Report Released Date/Time: Sep 04, 2024 09:36 PM Reporting Lab: [address] [address] Performing Lab: [address] [address] GLUCOSE-HAND MONITOR 123 mg/dL H Sep 04, 2024 04:41 PM [facility] GLUCOSE-HAND MONITOR CAPILLARY Specime n Type: CAPILLARY Comment: AAMIR RN notified Test performed by: [id number] Meter #: [id number] Ordering Provider: FRANCK TURNER Report Released Date/Time: Sep 04, 2024 05:03 PM Reporting Lab: [address] [address] Performing Lab: [address] [address] GLUCOSE-HAND MONITOR 118 mg/dL H -Sep 04, 2024 12:36 PM [facility] GLUCOSE-HAND MONITOR CAPILLARY Specime n Type: CAPILLARY Comment: AAMIR RN notified Test performed by: [id number] Meter #: [id number] Ordering Provider: FRANCK TURNER Report Released Date/Time: Sep 04, 2024 12:53 PM Reporting Lab: [place] [id number] Performing Lab: [place] [address] GLUCOSE-HAND MONITOR 129 mg/dL H -Sep 04, 2024 12:03 PM [facility] RESPIRATORY VIRUS PANEL (BIOFIRE) NASOPHARYN X Specimen Type: NASOPHARYNX Comment: ~For Test: RESPIRATORY VIRUS PANEL (BIOFIRE) ~ORDER READ BACK TO: FRANCK TURNER 09/04/24@11:30 Ordering Provider: FRANCK TURNER Report Released Date/Time: Sep 04, 2024 11:33 AM Reporting Lab: [place] [id number] Performing Lab: [place] [id number] ADENOVIRUS (BIOFIRE) Not Detected -Not D etected [...] Sep 03, 2024 11:10 AM Reporting Lab: [place] [id number] [facility] [address] Performing Lab: [address] [address] MAGNESIUM 1.8 mg/dL 1.6-2.6 Sep 04, 2024 06:55 AM [facility] PANEL 1 PLASMA Specimen Type: PLASM [...] 03, 2024 11:10 AM Reporting Lab: [address] [address] Performing Lab: [address] [address] CREATININE 0.75 mg/dL 0.72-1.25 UREA NITROGEN 13 mg/dL 9-25 GLUCOSE 105 mg/dL H 74-100 SODIUM 128 mmol/L L 136-145 POTASSIUM 3.9 mmol/L 3.5-5.1 CHLORIDE 99 mmol/L 98-107 CO2 21 mmol/L L 22-29 CALCIUM 8.0 mg/dL L 8.4-10.2 ANION GAP 8 meq/L 3-19 eGFR (CKD-EPI) >90 Sep 04, 2024 06:02 AM [facility] GLUCOSE-HAND MONITOR CAPILLARY Specime n Type: CAPILLARY Comment: Test performed by: [id number] Meter #: [id number] Ordering Provider: FRANCK TURNER Report Released Date/Time: Sep 04, 2024 06:28 AM Reporting Lab: [address] [address] Performing Lab: [address] [address] GLUCOSE-HAND MONITOR 114 mg/dL H 71-99 Sep 03, 2024 05:19 PM [facility] GLUCOSE-HAND MONITOR CAPILLARY Specime n Type: CAPILLARY Comment: Test performed by: [id number] Meter #: [id number] Ordering Provider: FRANCK TURNER Report Released Date/Time: Sep 03, 2024 05:37 PM Reporting Lab: [address] [address] Performing Lab: [address] [address] GLUCOSE-HAND MONITOR 124 mg/dL H 71-99 Sep 03, 2024 04:41 PM [facility] GLUCOSE-HAND MONITOR CAPILLARY Specime n Type: CAPILLARY Comment: Test performed by: [id number] Meter #: [id number] Ordering Provider: FRANCK TURNER Report Released Date/Time: Sep 03, 2024 06:09 PM Reporting Lab: [address] [address] Performing Lab: [facility] [address] [facility] [address] GLUCOSE-HAND MONITOR 112 mg/dL H 71-99 Sep 03, 2024 01:35 PM [facility] CREATININE URINE Specimen Type: URINE Comment: ~Altered mental status with no identifiable cause Ordering Provider: FRANCK TURNER Report Released Date/Time: Sep 02, 2024 04:44 PM Reporting Lab: [address] [address] Performing Lab: [address] [address] CREATININE 150.9 mg/dL Sep 03, 2024 01:35 PM [facility] URINE LYTES URINE Specimen Type : URINE Comment: ~Altered mental status with no identifiable cause Ordering Provider: FRANCK TURNER Report Released Date/Time: Sep 02, 2024 04:44 PM Reporting Lab: [address] [address] Performing Lab: [address] [address] SODIUM 130 mmol/L POTASSIUM 47.6 mmol/L CHLORIDE 137 mmol/L Sep 03, 2024 01:35 PM [facility] UREA NITROGEN URINE Specimen Type : URINE Comment: ~Altered mental status with no identifiable cause Ordering Provider: FRANCK TURNER Report Released Date/Time: Sep 02, 2024 04:44 PM Reporting Lab: [address] [address] Performing Lab: [address] [address] UREA NITROGEN 320 mg/dL Sep 03, 2024 01:35 PM [facility] URINALYSIS WITH REFLEX TO CULTURE URINE Specimen Type: URINE Comment: ~Altered mental status with no identifiable cause Ordering Provider: FRANCK TURNER Report Released Date/Time: Sep 02, 2024 04:44 PM Reporting Lab: [address] [address] Performing Lab: [address] [address] URINE COLOR Yellow Colorless-Yellow APPEARANCE CLOUDY H [...] H 0-28 Sep 03, 2024 01:35 PM [facility] OSMOLALITY URINE Specimen Type: URINE Comment: ~Altered mental status with no identifiable cause Ordering Provider: FRANCK TURNER Report Released Date/Time: Sep 02, 2024 04:44 PM Reporting Lab: [place] [id number] Performing Lab: [place] [id number] OSMOLALITY 522 mosm/kg 38-1400 Sep 03, 2024 11:58 AM [facility] GLUCOSE-HAND MONITOR CAPILLARY Specime n Type: CAPILLARY Comment: AAMIR RN notified Test performed by: [id number] Meter #: [id number] Ordering Provider: FRANCK TURNER Report Released Date/Time: Sep 03, 2024 12:15 PM Reporting Lab: [address] [address] Performing Lab: [address] [address] GLUCOSE-HAND MONITOR 135 mg/dL H 71-99 Sep 03, 2024 07:09 AM [facility] GLUCOSE-HAND MONITOR CAPILLARY Specime n Type: CAPILLARY Comment: Test performed by: [id number] Meter #: [id number] Ordering Provider: FRANCK TURNER Report Released Date/Time: Sep 03, 2024 07:26 AM Reporting Lab: [address] [address] Performing Lab: [address] [address] GLUCOSE-HAND MONITOR 120 mg/dL H 71-99 Sep 03, 2024 07:05 AM [facility] CBC/PLT BLOOD Specimen Type: BLOOD No comment entered. Ordering Provider: FRANCK TURNER Report Released Date/Time: Sep 02, 2024 04:29 PM Reporting Lab: [place] [id number] [facility] [address] Performing Lab: [address] [address] WBC 6.9 10*3/uL 5.0-10.0 RBC 3.48 10*6/uL L 4.6-6.2 HGB 9.5 g/dL L 14.0-18.0 HCT 29.1 L 42.0-52.0 MCV 83.6 fL 80.0-94.0 MCH 27.3 pg 27.0-31.0 MCHC 32.6 g/dL 32.0-36.0 PLT 258 10*3/uL 150-450 MPV 10.3 fL 9.0-13.1 RDW 14.8 11.0-16.0 NRBC 0.0 0.0-0.0 Sep 03, 2024 07:05 AM [facility] MAGNESIUM PLASMA Specimen Type: PLASM A [...] 02, 2024 04:29 PM Reporting Lab: [address] [address] Performing Lab: [address] [address] MAGNESIUM 1.7 mg/dL 1.6-2.6 Sep 03, 2024 07:05 AM [facility] PANEL 1 PLASMA Specimen Type: PLASM [...] 02, 2024 04:29 PM Reporting Lab: [address] [address] Performing Lab: [address] [address] CREATININE 0.82 mg/dL 0.72-1.25 UREA NITROGEN 12 mg/dL 9-25 GLUCOSE 109 mg/dL H 74-100 SODIUM 129 mmol/L L 136-145 POTASSIUM 4.2 mmol/L 3.5-5.1 CHLORIDE 99 mmol/L 98-107 CO2 21 mmol/L L 22-29 CALCIUM 8.1 mg/dL L 8.4-10.2 ANION GAP 9 meq/L 3-19 eGFR (CKD-EPI) 90 Sep 03, 2024 07:05 AM [facility] GLYCOHEMOGLOBIN BLOOD Specimen Type: BLOOD Comment: Prediabetes: 5.7%-6.4% Diabetes: >= 6.5% [facility] guidelines for A1c interpretation: Glycemic [...] 8.73 and 9.27. Ref: https://ngsp.org/CAPdata.asp. The in-house [employer] D-100 analyzer has a historical CV <= 2%. Contact the laboratory for further performance characteristics of this assay. Ordering Provider: FRANCK TURNER Report Released Date/Time: Sep 02, 2024 04:29 PM Reporting Lab: [address] [address] Performing Lab: [address] [address] GLYCOHEMOGLOBIN 5.6 4.4-5.6 Sep 03, 2024 07:05 AM [facility] OSMOLALITY SERUM Specimen Type: SERUM No comment entered. Ordering Provider: FRANCK TURNER Report Released Date/Time: Sep 02, 2024 04:44 PM Reporting Lab: [address] [address] Performing Lab: [address] [address] OSMOLALITY 271 mosm/kg L 280-300 Sep 02, 2024 08:15 PM [facility] GLUCOSE-HAND MONITOR CAPILLARY Specime n Type: CAPILLARY Comment: AAMIR RN notified Test performed by: [id number] Meter #: [id number] Ordering Provider: FRANCK TURNER Report Released Date/Time: Sep 02, 2024 08:57 PM Reporting Lab: [address] [address] Performing Lab: [address] [address] GLUCOSE-HAND MONITOR 126 mg/dL H 71-99 Sep 02, 2024 06:10 PM [facility] MRSA SURVL NARES DNA NARES Specime [...] 02, 2024 05:12 PM Reporting Lab: [address] [address] Performing Lab: [address] [address] MRSA SURVL NARES DNA Negative Negative Sep 02, 2024 05:36 PM [facility] GLUCOSE-HAND MONITOR CAPILLARY Specime n Type: CAPILLARY Comment: Test performed by: [id number] Meter #: [id number] Ordering Provider: FRANCK TURNER Report Released Date/Time: Sep 02, 2024 05:53 PM Reporting Lab: [address] [address] Performing Lab: [address] [address] GLUCOSE-HAND MONITOR 127 mg/dL H 71-99 Aug 29, 2024 10:04 PM [facility] URINALYSIS WITH REFLEX TO CULTURE URINE Specimen Type: URINE Comment: ~For Test: URINALYSIS WITH REFLEX TO CULTURE ~REORDER Ordering Provider: FELISA COLE Report Released Date/Time: Aug 29, 2024 09:36 PM Reporting Lab: [address] [address] Performing Lab: [address] [address] URINE COLOR Yellow Colorless-Yellow APPEARANCE Clear Clear [...] 0-28 Aug 29, 2024 08:32 PM ELICIA-Sav [facility] HIGH SENSITIVITY TROPONIN I PLASMA Specimen [...] I information resource can be reached in [facility] in the Tools menu, under the [...] 29, 2024 07:55 PM Reporting Lab: [address] [address] Performing Lab: [address] [address] HIGH SENSITIVITY TROPONIN I 7 4-35 Aug 29, 2024 08:32 PM [facility] CBC/PLT BLOOD Specimen Type: BLOOD No comment entered. Ordering Provider: FELISA COLE Report Released Date/Time: Aug 29, 2024 07:55 PM Reporting Lab: [address] [address] Performing Lab: [address] [address] WBC 11.2 10*3/uL H 5.0-10.0 RBC 3.97 10*6/uL L 4.6-6.2 HGB 10.9 g/dL L 14.0-18.0 HCT 33.5 L 42.0-52.0 MCV 84.4 fL 80.0-94.0 MCH 27.5 pg 27.0-31.0 MCHC 32.5 g/dL 32.0-36.0 PLT 230 10*3/uL 150-450 MPV 10.2 fL 9.0-13.1 RDW 14.6 11.0-16.0 NRBC 0.0 0.0-0.0 Aug 29, 2024 08:32 [facility] Specimen Type: PLASM A [...] I information resource can be reached in [facility] in the Tools menu, under the [...] 29, 2024 07:55 PM Reporting Lab: [address] [address] Performing Lab: [address] [address] CREATININE 0.85 mg/dL 0.72-1.25 UREA NITROGEN 15 [...] 07, 2024 09:02 PM 0 [place] Sep 07, 2024 08:01 PM 97.8 F 66 /min 148/76 mm[Hg] 16 /min 95 % 0 [facility] Sep 07, 2024 04:38 PM 97.0 F 61 /min 122/69 mm[Hg] 20 /min 94 % 0 [facility] Sep 07, 2024 02:23 PM 0 [place] Sep 07, 2024 12:08 PM 62 /min 118/68 mm[Hg] [place] [facility] Advance Directives: All historical and current [...] 08, 2024 ADVANCE DIRECTIVE DISCUSSION [facility] Radiology Reports: +/- 30 days [...] BRAIN W & W/O: LUIS MANUEL PERDOMO [id number] -1945 M Exm Date: SEP 06, 2024@13:40 Req Phys: FRANCK TURNER Pat Loc: 5-MED/TEL/09-06-2024@19:09 Img Loc: [facility] Service: [place] [address] (Case [id number] COMPLETE) MRI BRAIN W & W/O (MRI Detailed) CPT:94093 Contrast Media : Gadolinium Reason for Study: SEE CLINICAL HISTORY Pharmaceutical: GADOTERIDOL 279.3MG/ML 20ML INJ, 19ml Clinical History: MRI Screening (Required): IMPLANTED DEVICE DOCUMENTATION IMPLANTED DEVICE DOCUMENTATION NOT FOUND Does the [place] have any Cardiac Implants? None Does the have any implanted stimulators? None Does the [place] have cochlear implants? No Does the [place] have Cerebral aneurysm clip(s)? I don't know Does the [place] have any shrapnel? I don't know If yes, where in your body? Please list other implants not listed above: MRI table has a weight limit of 551 lbs. [place]'s Weight: *212 lb [96.16 kg] (09/04/2024 05:19) Is this patient claustrophobic?: No REASON FOR EXAM:MULTIPLE SCLEROSIS (indicate suspected or established) PERTINENT PATIENT HISTORY: MS c/f for flare Risk factors for GADOLINIUM NEPHROGENIC SYSTEMIC SCLEROSIS: Report Status: Verified Date Reported: SEP 06, 2024 Date Verified: SEP 06, 2024 Animal Attendant E-Sig: Report: MRI brain without and with [...] Staff: ARCENIO LEYVA, Staff Radiologist Verified by roastmaster for ARCENIO LEYVA /ARCENIO AVILA[facility] Sep 06, 2024 01:40 PM MRI C SPINE W & W/ O CONTRAST(FURTHER SEQUENCES): LUIS MANUEL PERDOMO [id number] -1945 M Exm Date: SEP 06, 2024@13:40 Req Phys: JOHNNYFRANCK SYDNEY Pat Loc: 5-MED/TEL/09-07-2024@06:42 Img Loc: [facility] Service: [place] [address] (Case [id number] COMPLETE) MRI C SPINE W & W/O CONTRAST(FURT(MRI Detailed) CPT:45664 Contrast Media : Gadolinium Reason for Study: SEE CLINICAL HISTORY Pharmaceutical: GADOTERIDOL 279.3MG/ML 20ML INJ, 19ml Clinical History: STATUS OF PLAIN FILMS:Not performed (Provide justification for MR W/O prior plain films below.) MRI for MS MRI Screening (Required): IMPLANTED DEVICE DOCUMENTATION IMPLANTED DEVICE DOCUMENTATION NOT FOUND Does the [place] have any Cardiac Implants? None Does the [place] have any implanted stimulators? None Does the have cochlear implants? No Does the have Cerebral aneurysm clip(s)? I don't know Does the [place] have any shrapnel? I don't know If [...] 07, 2024 Date Verified: SEP 07, 2024 Animal Attendant E-Sig: Report: EXAMINATION: MRI OF THE CERVICAL [...] Interpreting Staff: HUANG TAI, Radiologist Verified by roastmaster for HUANG TAI /HUANG [place]-Sav [facility] Sep 03, 2024 10:45 AM CHEST SINGLE(1) EW: LUIS MANUEL PERDOMO FABIAN [id number] -1945 M Exm Date: SEP 03, 2024@10:45 Req Phys: FRANCK TURNER Pat Loc: 5-MED/TEL/09-03-2024@10:56 Img Loc: CDD RADIOLOGY Service: [place] [address] (Case [id number] COMPLETE)CHEST SINGLE(1) VIEW (RAD Detailed) CPT:85896 Proc Modifiers : PORTABLE EXAM Reason for Study: Eval volume status Clinical History: Report Status: Verified Date Reported: SEP 03, 2024 Date Verified: SEP 03, 2024 Animal Attendant E-Sig: Report: EXAMINATION: SINGLE VIEW CHEST CLINICAL [...] Interpreting Staff: HUANG TAI, Radiologist Verified by roastmaster for HUANG TAI /HUANG WHEATLEY-CDD [facility] Aug 29, 2024 08:[address] HEAD W/O CONT: LUIS MNAUEL PERDOMO [id number] -1945 M Exm Date: AUG 29, 2024@20:28 Req Phys: FELISA COLE Loc: ED/4P-12A (Req'g Loc) Img Loc: CT SCAN Service: [place] [address] (Case [id number] COMPLETE) CT HEAD W/O CONT (CT Detailed) CPT:24250 Reason for Study: SEE CLINICAL HISTORY Clinical History: REASON FOR SEND OUT: ATTENDING PHYSICIAN NAME: New transient neurological s/s - suspected TIA HISTORY/REASON FOR EXAM: confusion Report Status: Verified Date Reported: AUG 29, 2024 Date Verified: AUG 29, 2024 Animal Attendant E-Sig: Report: HISTORY confusion COMPARISON No prior [...] Staff: ABDIRAHMAN CROW, Staff Physician Verified by roastmaster for ABDIRAHMAN CROW /ABDIRAHMAN ROJAS-D [facility] Pathology Reports: +/- 30 days of [...] Lab: [facility] [CLIA# [id number]] [address] [place] [id number] Accession [UID]: [id number] [[id number]] Received: Sep 03, 2024@14:02 Collection sample: URINE, [...] By: [facility] [CLIA# [id number]] [address] [place] [address] MAGDY CALABRESE [facility] Sep 02, 2024 06:00 PM LR MICROBIOLOGY RE PORT: Reporting Lab: [facility] [CLIA# [id number]] [address] [place], [place] [id number] Accession [UID]: [id number] [[id number]] Received: Sep 02, 2024@18:07 Collection sample: BLD CULTURE BOTTLES Collection date: Sep 02, 2024 18:00 Site/Specimen: BLOOD Provider: FRANCK TURNER Comment on specimen: L HAND Test(s) ordered: CULTURE, BLOOD................ completed: Sep 08, 2024 * BACTERIOLOGY FINAL REPORT => Sep 08, 2024 08:25 TECH CODE: [id number] Bacteriology Remark(s): Blood culture status=NO GROWTH (unless notified otherwise) 09/03/2024 AEROBIC: NO GROWTH ANAEROBIC: NO GROWTH =--=--=--=--=--=--=--=--=--=-- =--=--=--=--=--=--=--=--=--=-- =--=--=--=--=--=-- Performing Laboratory: Bacteriology Report Performed By: [facility] [CLIA# [id number]] [address] [place] [address] MAG[facility]ABRESE [facility] Aug 29, 2024 10:18 PM LR MICROBIOLOGY RE PORT: Reporting Lab: [facility] [CLIA# [id number]] [address] [place], [place] [id number] Accession [UID]: [id number] [[id number]] Received: Aug 29, 2024@22:18 Collection sample: URINE, CLEAN CATCH Collection date: Aug 29, 2024 22:18 Site/Specimen: URINE Provider: FELISA COLE Test(s) ordered: CULTURE, URINE................ completed: Aug 31, 2024 09:51 * BACTERIOLOGY FINAL REPORT => Aug 31, 2024 09:51 TECH CODE: [id number] Bacteriology Remark(s): NO GROWTH 08/30/2024 <10,000 CFU/ML. 08/31/2024 =--=--=--=--=--=--=--=--=--=-- =--=--=--=--=--=--=--=--=--=-- =--=--=--=--=--=-- Performing Laboratory: Bacteriology Report Performed By: [facility] [CLIA# [id number]] [address] [place] [address] MAGDY CALABRESE-[facility]
--- OUTSIDE RECORDS SUMMARY | 2024-09-07 10:17 | XMS_ITS ---
[place] DAILY HOSPITALIZATION DATA [facility] Encounter Summary Created on: September 22, 2024 LUIS MANUEL PERDOMO : 1945 Sex: Male Author Name [facility] Organization [facility] [place] Address [address] [place] [address] Care Team Providers Care Valuer Name Role Phone YULISSA HENDERSON Primary Care [...] PLAN F Mar 24, 2014 PLAN F [id number] [phone] LUIS MANUEL PERDOMO PATIENT [facility] [place] [facility] PREFERRED PROVIDER ORGANIZAT ION (PPO) [facility] SLE Sep 21, 2012 [id number] [phone] LUIS MANUEL PERDOMO PATIENT [employer] ([id number]) PRESCRIPT ION WL3A Sep 21, 2012 [id number] [phone] LUIS MANUEL PERDOMO PATIENT MEDICARE (WNR) MEDICARE (M) PART B Sep 21, 2012 PART B [id number] NOEMI PERDOMO PATIENT MEDICARE (WNR) MEDICARE (M) PART A Jan 22, 2011 PART A [id number] LEANNE, NOEMI PATIENT MEDICARE PART D (WNR) MEDICARE (M) PART D Mar 24, 2014 PART D [id number] LUIS MANUEL PERDOMO PATIENT Selected Encounter This section includes the information on record at [place] for the Encounter. Date/Time Encounter Type Encounter Description Reason Pro vider Source Sep 07, 2024 02:17 PM Inpatient Visit DAILY HOSPITALIZATION DATA [facility] Encounter Template Text not used by [place] Plan of Treatment: Future Appointments (+ 6 months) and Future Tests (+/- 45 days) The Plan of Treatment section includes future care activities for the patient from all [place] [facility] specialty [facility]. This section includes future [...] 08:00 AM AMBULATORY - NONE [facility] Sep 30, 2024 01:30 PM AMBULATORY - SURGERY [facility] Active, Pending, and Scheduled Orders This section includes a listing of several types of active, pending, and scheduled orders, including clinic medications orders, diagnostic test orders, procedure orders and consult orders; where the start date of the order is 45 days before the date of the Encounter or 45 days after the date of theEncounter. The data comes from all [facility] facilities. Test Date/Time Test Type Test Details Facility Name Sep 13, 2024 01:33 PM Consult Order [facility] Cons Branch Customer Service Representative's Choice [facility] Lab Results: +/- 30 days of [...] Type Comment Sep 09, 2024 12:16 PM [facility] GLUCOSE-HAND MONITOR CAPILLARY Specimen Type: CAPILLARY Comment: Test performed by: [id number] Meter #: [id number] Ordering Provider: FRANCK TURNER Report Released Date/Time: Sep 09, 2024 12:33 PM Reporting Lab: [address] [address] Performing Lab: [address] [address] GLUCOSE-HAND MONITOR 116 mg/dL H Sep 09, 2024 06:07 AM [facility] GLUCOSE-HAND MONITOR CAPILLARY Specime n Type: CAPILLARY Comment: Test performed by: [id number] Meter #: [id number] Ordering Provider: FRANCK TURNER Report Released Date/Time: Sep 09, 2024 08:17 AM Reporting Lab: [address] [address] Performing Lab: [address] [address] GLUCOSE-HAND MONITOR 112 mg/dL H Sep 08, 2024 09:13 PM [facility] GLUCOSE-HAND MONITOR CAPILLARY Specime n Type: CAPILLARY Comment: Test performed by: [id number] Meter #: [id number] Ordering Provider: FRANCK TURNER Report Released Date/Time: Sep 08, 2024 09:31 PM Reporting Lab: [address] [address] Performing Lab: [address] [address] GLUCOSE-HAND MONITOR 107 mg/dL H Sep 08, 2024 03:49 PM [facility] GLUCOSE-HAND MONITOR CAPILLARY Specime n Type: CAPILLARY Comment: AAMIR RN notified Test performed by: [id number] Meter #: [id number] Ordering Provider: FRANCK TURNER Report Released Date/Time: Sep 08, 2024 04:33 PM Reporting Lab: [address] [address] Performing Lab: [address] [address] GLUCOSE-HAND MONITOR 162 mg/dL H Sep 08, 2024 11:43 AM [facility] GLUCOSE-HAND MONITOR CAPILLARY Specime n Type: CAPILLARY Comment: AAMIR RN notified Test performed by: [id number] Meter #: [id number] Ordering Provider: FRANCK TURNER Report Released Date/Time: Sep 08, 2024 12:03 PM Reporting Lab: [address] [address] Performing Lab: [address] [address] GLUCOSE-HAND MONITOR 133 mg/dL H Sep 08, 2024 06:13 AM [facility] GLUCOSE-HAND MONITOR CAPILLARY Specime n Type: CAPILLARY Comment: Test performed by: [id number] Meter #: [id number] Ordering Provider: FRANCK TURNER Report Released Date/Time: Sep 08, 2024 06:46 AM Reporting Lab: [address] [address] Performing Lab: [address] [address] GLUCOSE-HAND MONITOR 104 mg/dL H Sep 07, 2024 07:59 PM [facility] GLUCOSE-HAND MONITOR CAPILLARY Specime n Type: CAPILLARY Comment: Test performed by: [id number] Meter #: [id number] Ordering Provider: FRANCK TURNER Report Released Date/Time: Sep 07, 2024 09:05 PM Reporting Lab: [address] [address] Performing Lab: [address] [address] GLUCOSE-HAND MONITOR 107 mg/dL H Sep 07, 2024 04:39 PM [facility] GLUCOSE-HAND MONITOR CAPILLARY Specime n Type: CAPILLARY Comment: Test performed by: [id number] Meter #: [id number] Ordering Provider: FRANCK TURNER Report Released Date/Time: Sep 07, 2024 05:09 PM Reporting Lab: [address] [address] Performing Lab: [address] [address] GLUCOSE-HAND MONITOR 105 mg/dL H Sep 07, 2024 11:41 AM [facility] GLUCOSE-HAND MONITOR CAPILLARY Specime n Type: CAPILLARY Comment: Test performed by: [id number] Meter #: [id number] Ordering Provider: FRANCK TURNER Report Released Date/Time: Sep 07, 2024 12:41 PM Reporting Lab: [address] [address] Performing Lab: [address] [address] GLUCOSE-HAND MONITOR 144 mg/dL H Sep 07, 2024 05:56 AM [facility] GLUCOSE-HAND MONITOR CAPILLARY Specime n Type: CAPILLARY Comment: Test performed by: [id number] Meter #: [id number] Ordering Provider: FRANCK TURNER Report Released Date/Time: Sep 07, 2024 06:31 AM Reporting Lab: [address] [address] Performing Lab: [address] [address] GLUCOSE-HAND MONITOR 96 mg/dL Sep 06, 2024 08:10 PM [facility] GLUCOSE-HAND MONITOR CAPILLARY Specime n Type: CAPILLARY Comment: Test performed by: [id number] Meter #: [id number] Ordering Provider: FRANCK TURNER Report Released Date/Time: Sep 06, 2024 08:52 PM Reporting Lab: [address] [address] Performing Lab: [address] [address] GLUCOSE-HAND MONITOR 124 mg/dL H Sep 06, 2024 04:27 PM [facility] GLUCOSE-HAND MONITOR CAPILLARY Specime n Type: CAPILLARY Comment: Test performed by: [id number] Meter #: [id number] Ordering Provider: FRANCK TURNER Report Released Date/Time: Sep 06, 2024 05:15 PM Reporting Lab: [address] [address] Performing Lab: [address] [address] GLUCOSE-HAND MONITOR 107 mg/dL H Sep 06, 2024 12:12 PM [facility] GLUCOSE-HAND MONITOR CAPILLARY Specime n Type: CAPILLARY Comment: Test performed by: [id number] Meter #: [id number] Ordering Provider: FRANCK TURNER Report Released Date/Time: Sep 06, 2024 12:29 PM Reporting Lab: [address] [address] Performing Lab: [address] [address] GLUCOSE-HAND MONITOR 181 mg/dL H -Sep 06, 2024 06:13 AM [facility] GLUCOSE-HAND MONITOR CAPILLARY Specime n Type: CAPILLARY Comment: Test performed by: [id number] Meter #: [id number] Ordering Provider: FRANCK TURNER Report Released Date/Time: Sep 06, 2024 06:36 AM Reporting Lab: [address] [address] Performing Lab: [address] [address] GLUCOSE-HAND MONITOR 102 mg/dL H Sep 05, 2024 08:47 PM [facility] GLUCOSE-HAND MONITOR CAPILLARY Specime n Type: CAPILLARY Comment: Test performed by: [id number] Meter #: [id number] Ordering Provider: FRANCK TURNER Report Released Date/Time: Sep 06, 2024 02:13 AM Reporting Lab: [address] [address] Performing Lab: [address] [address] GLUCOSE-HAND MONITOR 103 mg/dL H Sep 05, 2024 04:40 PM [facility] GLUCOSE-HAND MONITOR CAPILLARY Specime n Type: CAPILLARY Comment: AAMIR RN notified Test performed by: [id number] Meter #: [id number] Ordering Provider: FRANCK TURNER Report Released Date/Time: Sep 05, 2024 05:11 PM Reporting Lab: [address] [address] Performing Lab: [address] [address] GLUCOSE-HAND MONITOR 113 mg/dL H Sep 05, 2024 12:06 PM [facility] GLUCOSE-HAND MONITOR CAPILLARY Specime n Type: CAPILLARY Comment: Test performed by: [id number] Meter #: [id number] Ordering Provider: FRANCK TURNER Report Released Date/Time: Sep 05, 2024 12:23 PM Reporting Lab: [address] [address] Performing Lab: [address] [address] GLUCOSE-HAND MONITOR 115 mg/dL H Sep 05, 2024 06:26 AM [facility] GLUCOSE-HAND MONITOR CAPILLARY Specime n Type: CAPILLARY Comment: AAMIR Correction Dose Test performed by: [id number] Meter #: [id number] Ordering Provider: FRANCK TURNER Report Released Date/Time: Sep 05, 2024 06:43 AM Reporting Lab: [address] [address] Performing Lab: [address] [address] GLUCOSE-HAND MONITOR 111 mg/dL H Sep 04, 2024 08:59 PM [facility] GLUCOSE-HAND MONITOR CAPILLARY Specime n Type: CAPILLARY Comment: AAMIR RN notified Test performed by: [id number] Meter #: [id number] Ordering Provider: FRANCK TURNER Report Released Date/Time: Sep 04, 2024 09:36 PM Reporting Lab: [address] [address] Performing Lab: [address] [address] GLUCOSE-HAND MONITOR 123 mg/dL H Sep 04, 2024 04:41 PM [facility] GLUCOSE-HAND MONITOR CAPILLARY Specime n Type: CAPILLARY Comment: AAMIR RN notified Test performed by: [id number] Meter #: [id number] Ordering Provider: FRANCK TURNER Report Released Date/Time: Sep 04, 2024 05:03 PM Reporting Lab: [address] [address] Performing Lab: [address] [address] GLUCOSE-HAND MONITOR 118 mg/dL H Sep 04, 2024 12:36 PM [facility] GLUCOSE-HAND MONITOR CAPILLARY Specime n Type: CAPILLARY Comment: AAMIR RN notified Test performed by: [id number] Meter #: [id number] Ordering Provider: FRANCK TURNER Report Released Date/Time: Sep 04, 2024 12:53 PM Reporting Lab: [address] [address] Performing Lab: [place] [address] GLUCOSE-HAND MONITOR 129 mg/dL H 71-99 Sep 04, 2024 12:03 PM [facility] RESPIRATORY VIRUS PANEL (BIOFIRE) NASOPHARYN X Specimen Type: NASOPHARYNX Comment: ~For Test: RESPIRATORY VIRUS PANEL (BIOFIRE) ~ORDER READ BACK TO: FRANCK TURNER 09/04/24@11:30 Ordering Provider: FRANCK TURNER Report Released Date/Time: Sep 04, 2024 11:33 AM Reporting Lab: [place] [address] Performing Lab: [place] [address] ADENOVIRUS (BIOFIRE) Not Detected -Not D etected [...] -Not Detected Sep 04, 2024 06:55 AM [facility] MAGNESIUM PLASMA Specimen Type: PLASM A [...] 03, 2024 11:10 AM Reporting Lab: [place] [facility] [address] [facility] [address] Performing Lab: [place] [address] [facility] [address] MAGNESIUM 1.8 mg/dL 1.6-2.6 Sep 04, 2024 06:55 AM [facility] PANEL 1 PLASMA Specimen Type: PLASM [...] Sep 03, 2024 11:10 AM Reporting Lab: [address] [address] Performing Lab: [address] CREATININE 0.75 mg/dL 0.72-1.25 UREA NITROGEN 13 mg/dL 9-25 GLUCOSE 105 mg/dL H 74-100 SODIUM 128 mmol/L L 136-145 POTASSIUM 3.9 mmol/L 3.5-5.1 CHLORIDE 99 mmol/L 98-107 CO2 21 mmol/L L 22-29 CALCIUM 8.0 mg/dL L 8.4-10.2 ANION GAP 8 meq/L 3-19 eGFR (CKD-EPI) >90 Sep 04, 2024 06:02 AM [facility] GLUCOSE-HAND MONITOR CAPILLARY Specime n Type: CAPILLARY Comment: Test performed by: [id number] Meter #: [id number] Ordering Provider: FRANCK TURNER Report Released Date/Time: Sep 04, 2024 06:28 AM Reporting Lab: [address] Performing Lab: [address] GLUCOSE-HAND MONITOR 114 mg/dL H 71-99 Sep 03, 2024 05:19 PM [facility] GLUCOSE-HAND MONITOR CAPILLARY Specime n Type: CAPILLARY Comment: Test performed by: [id number] Meter #: [id number] Ordering Provider: FRANCK TURNER Report Released Date/Time: Sep 03, 2024 05:37 PM Reporting Lab: [address] Performing Lab: [address] [address] GLUCOSE-HAND MONITOR 124 mg/dL H 71-99 Sep 03, 2024 04:41 PM [facility] GLUCOSE-HAND MONITOR CAPILLARY Specime n Type: CAPILLARY Comment: Test performed by: [id number] Meter #: [id number] Ordering Provider: FRANCK TURNER Report Released Date/Time: Sep 03, 2024 06:09 PM Reporting Lab: [address] [address] Performing Lab: [address] [address] GLUCOSE-HAND MONITOR 112 mg/dL H 71-99 Sep 03, 2024 01:35 PM [facility] CREATININE URINE Specimen Type: URINE Comment: ~Altered mental status with no identifiable cause Ordering Provider: FRANCK TURNER Report Released Date/Time: Sep 02, 2024 04:44 PM Reporting Lab: [address] [address] Performing Lab: [place] [address] CREATININE 150.9 mg/dL Sep 03, 2024 01:35 PM [facility] URINE LYTES URINE Specimen Type : URINE Comment: ~Altered mental status with no identifiable cause Ordering Provider: FRANCK TURNER Report Released Date/Time: Sep 02, 2024 04:44 PM Reporting Lab: [address] [address] Performing Lab: [address] [address] SODIUM 130 mmol/L POTASSIUM 47.6 mmol/L CHLORIDE 137 mmol/L Sep 03, 2024 01:35 PM [facility] URINALYSIS WITH REFLEX TO CULTURE URINE Specimen Type: URINE Comment: ~Altered mental status with no identifiable cause Ordering Provider: FRANCK TURNER Report Released Date/Time: Sep 02, 2024 04:44 PM Reporting Lab: [address] [address] Performing Lab: [address] [address] URINE COLOR Yellow Colorless-Yellow APPEARANCE CLOUDY H [...] H 0-28 Sep 03, 2024 01:35 PM [facility] UREA NITROGEN URINE Specimen Type : URINE Comment: ~Altered mental status with no identifiable cause Ordering Provider: FRANCK TURNER Report Released Date/Time: Sep 02, 2024 04:44 PM Reporting Lab: [address] [address] Performing Lab: [address] [address] UREA NITROGEN 320 mg/dL Sep 03, 2024 01:35 PM [facility] OSMOLALITY URINE Specimen Type: URINE Comment: ~Altered mental status with no identifiable cause Ordering Provider: FRANCK TURNER Report Released Date/Time: Sep 02, 2024 04:44 PM Reporting Lab: [address] [address] Performing Lab: [place] [address] OSMOLALITY 522 mosm/kg 38-1400 Sep 03, 2024 11:58 AM [facility] GLUCOSE-HAND MONITOR CAPILLARY Specime n Type: CAPILLARY Comment: AAMIR RN notified Test performed by: [id number] Meter #: [id number] Ordering Provider: FRANCK TURNER Report Released Date/Time: Sep 03, 2024 12:15 PM Reporting Lab: [address] [address] Performing Lab: [address] [address] GLUCOSE-HAND MONITOR 135 mg/dL H -Sep 03, 2024 07:09 AM [facility] GLUCOSE-HAND MONITOR CAPILLARY Specime n Type: CAPILLARY Comment: Test performed by: [id number] Meter #: [id number] Ordering Provider: FRANCK TURNER Report Released Date/Time: Sep 03, 2024 07:26 AM Reporting Lab: [address] [address] Performing Lab: [address] [address] GLUCOSE-HAND MONITOR 120 mg/dL H -Sep 03, 2024 07:05 AM [facility] CBC/PLT BLOOD Specimen Type: BLOOD No comment entered. Ordering Provider: FRANCK TURNER Report Released Date/Time: Sep 02, 2024 04:29 PM Reporting Lab: [address] [address] Performing Lab: [address] [address] WBC 6.9 10*3/uL 5.0-10.0 RBC 3.48 10*6/uL L 4.6-6.2 HGB 9.5 g/dL L 14.0-18.0 HCT 29.1 L 42.0-52.0 MCV 83.6 fL 80.0-94.0 MCH 27.3 pg 27.0-31.0 MCHC 32.6 g/dL 32.0-36.0 PLT 258 10*3/uL 150-450 MPV 10.3 fL 9.0-13.1 RDW 14.8 11.0-16.0 NRBC 0.0 0.0-0.0 Sep 03, 2024 07:05 AM [facility] MAGNESIUM PLASMA Specimen Type: PLASM A [...] Sep 02, 2024 04:29 PM Reporting Lab: [address] [address] Performing Lab: [address] [address] MAGNESIUM 1.7 mg/dL 1.6-2.6 Sep 03, 2024 07:05 AM [facility] PANEL 1 PLASMA Specimen Type: PLASM [...] Sep 02, 2024 04:29 PM Reporting Lab: [address] [address] Performing Lab: [address] [address] CREATININE 0.82 mg/dL 0.72-1.25 UREA NITROGEN 12 mg/dL 9-25 GLUCOSE 109 mg/dL H 74-100 SODIUM 129 mmol/L L 136-145 POTASSIUM 4.2 mmol/L 3.5-5.1 CHLORIDE 99 mmol/L 98-107 CO2 21 mmol/L L 22-29 CALCIUM 8.1 mg/dL L 8.4-10.2 ANION GAP 9 meq/L 3-19 eGFR (CKD-EPI) 90 Sep 03, 2024 07:05 AM [facility] GLYCOHEMOGLOBIN BLOOD Specimen Type: BLOOD Comment: Prediabetes: 5.7%-6.4% Diabetes: >= 6.5% [facility] guidelines for A1c interpretation: Glycemic control [...] 8.73 and 9.27. Ref: https://ngsp.org/CAPdata.asp. The in-house [employer] D-100 analyzer has a historical CV <= 2%. Contact the laboratory for further performance characteristics of this assay. Ordering Provider: FRANCK TURNER Report Released Date/Time: Sep 02, 2024 04:29 PM Reporting Lab: [address] [address] Performing Lab: [place] [address] GLYCOHEMOGLOBIN 5.6 4.4-5.6 Sep 03, 2024 07:05 AM [facility] OSMOLALITY SERUM Specimen Type: SERUM No comment entered. Ordering Provider: FRANCK TURNER Report Released Date/Time: Sep 02, 2024 04:44 PM Reporting Lab: [address] [address] Performing Lab: [address] [address] OSMOLALITY 271 mosm/kg L 280-300 Sep 02, 2024 08:15 PM [facility] GLUCOSE-HAND MONITOR CAPILLARY Specime n Type: CAPILLARY Comment: AAMIR DEXTER notified Test performed by: [id number] Meter #: [id number] Ordering Provider: FRANCK TURNER Report Released Date/Time: Sep 02, 2024 08:57 PM Reporting Lab: [address] [address] Performing Lab: [address] [address] GLUCOSE-HAND MONITOR 126 mg/dL H 71-99 Sep 02, 2024 06:10 PM [facility] MRSA SURVL NARES DNA NARES Specime [...] Sep 02, 2024 05:12 PM Reporting Lab: [address] [address] Performing Lab: [address] [address] MRSA SURVL NARES DNA Negative Negative Sep 02, 2024 05:36 PM [facility] GLUCOSE-HAND MONITOR CAPILLARY Specime n Type: CAPILLARY Comment: Test performed by: [id number] Meter #: [id number] Ordering Provider: FRANCK TURNER Report Released Date/Time: Sep 02, 2024 05:53 PM Reporting Lab: [address] [address] Performing Lab: [address] [address] GLUCOSE-HAND MONITOR 127 mg/dL H 71-99 Aug 29, 2024 10:04 PM [facility] URINALYSIS WITH REFLEX TO CULTURE URINE Specimen Type: URINE Comment: ~For Test: URINALYSIS WITH REFLEX TO CULTURE ~REORDER Ordering Provider: FELISA COLE Report Released Date/Time: Aug 29, 2024 09:36 PM Reporting Lab: [address] [address] Performing Lab: [address] [address] URINE COLOR Yellow Colorless-Yellow APPEARANCE Clear Clear [...] /[LPF] 0-28 Aug 29, 2024 08:32 PM [facility] SENSITIV[facility] TROPONIN I PLASMA Specimen [...] Aug 29, 2024 07:55 PM Reporting Lab: [address] [address] Performing Lab: [address] [address] HIGH SENSITIVITY TROPONIN I 7 4-35 Aug 29, 2024 08:32 PM [facility] CBC/PLT BLOOD Specimen Type: BLOOD No comment entered. Ordering Provider: FELISA COLE Report Released Date/Time: Aug 29, 2024 07:55 PM Reporting Lab: [address] [address] Performing Lab: [address] [address] WBC 11.2 10*3/uL H 5.0-10.0 RBC 3.97 10*6/uL L 4.6-6.2 HGB 10.9 g/dL L 14.0-18.0 HCT 33.5 L 42.0-52.0 MCV 84.4 fL 80.0-94.0 MCH 27.5 pg 27.0-31.0 MCHC 32.5 g/dL 32.0-36.0 PLT 230 10*3/uL 150-450 MPV 10.2 fL 9.0-13.1 RDW 14.6 11.0-16.0 NRBC 0.0 0.0-0.0 Aug 29, 2024 08:32 PM [facility] PANEL 5 PLASMA Specimen Type: PLASM A [...] Aug 29, 2024 07:55 PM Reporting Lab: [address] [address] Performing Lab: [address] [address] CREATININE 0.85 mg/dL 0.72-1.25 UREA NITROGEN 15 [...] 07, 2024 09:02 PM 0 [place] Sep 07, 2024 08:01 PM 97.8 F 66 /min 148/76 mm[Hg] 16 /min 95 % [facility] Sep 07, 2024 04:38 PM 97.0 F 61 /min 122/69 mm[Hg] 20 /min 94 % 0 [place] Sep 07, 2024 02:23 PM 0 [place] Sep 07, 2024 12:08 PM 62 /min 118/68 mm[Hg] [place] [facility] Advance Directives: All historical and current [...] 08, 2024 ADVANCE DIRECTIVE DISCUSSION [facility] Radiology Reports: +/- 30 days [...] BRAIN W & W/O: LUIS MANUEL PERDOMO [id number] -1945 M Exm Date: SEP 06, 2024@13:40 Req Phys: FRANCK TURNER Loc: 5-MED/TEL/09-06-2024@19:09 Img Loc: [facility] Service: [place] [address] (Case [id number] COMPLETE) MRI BRAIN W & W/O (MRI Detailed) CPT:55933 Contrast Media : Gadolinium Reason for Study: SEE CLINICAL HISTORY Pharmaceutical: GADOTERIDOL 279.3MG/ML 20ML INJ, 19ml Clinical History: MRI Screening (Required): IMPLANTED DEVICE DOCUMENTATION IMPLANTED DEVICE DOCUMENTATION NOT FOUND Does the [place] have any Cardiac Implants? None Does the have any implanted stimulators? None Does the [place] have cochlear implants? No Does the have [...] 06, 2024 Date Verified: SEP 06, 2024 Treasury Assistant E-Sig: Report: MRI brain without and [...] Staff: ARCENIO LEYVA, Staff Radiologist Verified by cemetery vault installer for ARCENIO LEYVA /ARCENIO AVILA-[facility] Sep 06, 2024 01:40 PM MRI C SPINE W & W/ O CONTRAST(FURTHER SEQUENCES): LUIS MANUEL PERDOMO [id number] -1945 M Exm Date: SEP 06, 2024@13:40 Req Phys: FRANCK TURNERISIAHFLOSav Pat Loc: 5-MED/TEL/09-07-2024@06:42 Img Loc: [facility] Service: [place] [address] (Case [id number] COMPLETE) MRI C SPINE W & W/O CONTRAST(FURT(MRI Detailed) CPT:58889 Contrast Media : Gadolinium Reason for Study: SEE CLINICAL HISTORY Pharmaceutical: GADOTERIDOL 279.3MG/ML 20ML INJ, 19ml Clinical History: STATUS OF PLAIN FILMS:Not performed (Provide justification for MR W/O prior plain films below.) MRI for MS MRI Screening (Required): IMPLANTED DEVICE DOCUMENTATION IMPLANTED DEVICE DOCUMENTATION NOT FOUND Does the [place] have any Cardiac Implants? None Does the [place] have any implanted stimulators? None Does the [place] have cochlear implants? No Does the have Cerebral aneurysm clip(s)? I don't know Does the [place] have any shrapnel? I don't know If [...] 07, 2024 Date Verified: SEP 07, 2024 Treasury Assistant E-Sig: Report: EXAMINATION: MRI OF THE [...] Interpreting Staff: HUANG TAI, Radiologist Verified by cemetery vault installer for HUANG TAI /HUANG [place]-[facility]AL[facility] Sep 03, 2024 10:45 AM CHEST SINGLE(1) EW: LUIS MANUEL PERDOMO [id number] -1945 M Exm Date: SEP 03, 2024@10:45 Req Phys: FRANCK TURNER Pat Loc: 5-MED/TEL/09-03-2024@10:56 Img Loc: [facility] Service: [place] [address] (Case [id number] COMPLETE)CHEST SINGLE(1) VIEW (RAD Detailed) CPT:34438 Proc Modifiers : PORTABLE EXAM Reason for Study: Eval volume status Clinical History: Report Status: Verified Date Reported: SEP 03, 2024 Date Verified: SEP 03, 2024 Treasury Assistant E-Sig: Report: EXAMINATION: SINGLE VIEW CHEST [...] Interpreting Staff: HUANG TAI, Radiologist Verified by cemetery vault installer for HUANG TAI /HUANG [place]-[facility] Aug 29, 2024 08:[address] HEAD W/O CONT: LUIS MANUEL PERDOMO [id number] -1945 M Exm Date: AUG 29, 2024@20:28 Req Phys: FELISA COLE Loc: ED/4P-12A (Req'g Loc) Img Loc: CT SCAN Service: Unknown [place] [id number] (Case [id number] COMPLETE) CT HEAD W/O CONT (CT Detailed) CPT:06686 Reason for Study: SEE CLINICAL HISTORY Clinical History: REASON FOR SEND OUT: ATTENDING PHYSICIAN NAME: New transient neurological s/s - suspected TIA HISTORY/REASON FOR EXAM: confusion Report Status: Verified Date Reported: AUG 29, 2024 Date Verified: AUG 29, 2024 Treasury Assistant E-Sig: Report: HISTORY confusion COMPARISON No [...] Staff: ABDIRAHMAN CROW, Staff Physician Verified by cemetery vault installer for ABDIRAHMAN CROW /[facility] Pathology [...] [facility] [CLIA# [id number]] [address] [place] [id number] Accession [UID]: [id number] [[id number]] Received: Sep 03, 2024@14:02 Collection sample: URINE, [...] [facility] [CLIA# [id number]] [address] [place] [id number] [facility] Sep 02, 2024 06:00 PM LR MICROBIOLOGY RE PORT: Reporting Lab: [facility] [CLIA# [id number]] [address] [place] [address] Accession [UID]: [id number] [[id number]] Received: Sep 02, 2024@18:07 Collection sample: BLD CULTURE BOTTLES Collection date: Sep 02, 2024 18:00 Site/Specimen: BLOOD Provider: FRANCK TURNER Comment on specimen: L HAND Test(s) ordered: CULTURE, BLOOD................ completed: Sep 08, 2024 * BACTERIOLOGY FINAL REPORT => Sep 08, 2024 08:25 TECH CODE: [id number] Bacteriology Remark(s): Blood culture status=NO GROWTH (unless notified otherwise) 09/03/2024 AEROBIC: NO GROWTH ANAEROBIC: NO GROWTH =--=--=--=--=--=--=--=--=--=-- =--=--=--=--=--=--=--=--=--=-- =--=--=--=--=--=-- Performing Laboratory: Bacteriology Report Performed By: [facility] [CLIA# [id number]] [address] [place] [address] MAGDY CALABRESE [facility] Aug 29, 2024 10:18 PM LR MICROBIOLOGY RE PORT: Reporting Lab: [facility] [CLIA# [id number]] [address] [place] [address] Accession [UID]: [id number] [[id number]] Received: Aug 29, 2024@22:18 Collection sample: URINE, CLEAN CATCH Collection date: Aug 29, 2024 22:18 Site/Specimen: URINE Provider: FELISA COLE Test(s) ordered: CULTURE, URINE................ completed: Aug 31, 2024 09:51 * BACTERIOLOGY FINAL REPORT => Aug 31, 2024 09:51 TECH CODE: [id number] Bacteriology Remark(s): NO GROWTH 08/30/2024 <10,000 CFU/ML. 08/31/2024 =--=--=--=--=--=--=--=--=--=-- =--=--=--=--=--=--=--=--=--=-- =--=--=--=--=--=-- Performing Laboratory: Bacteriology Report Performed By: [facility] [CLIA# [id number]] [address] [place] [address] MAGDY CALABRESE-Sav [facility]
--- OUTSIDE RECORDS SUMMARY | 2024-09-07 14:09 | XMS_ITS ---
[place] DAILY HOSPITALIZATION DATA [facility] Encounter Summary Created on: September 22, 2024 LUIS MANUEL PERDOMO : 1945 Sex: Male Author Name [facility] ([place]) Organization [facility] [place]) Address [address] [place] [address] Care Team Providers Care Financial Examiner Name Role Phone YULISSA HENDERSON Primary Care [...] PLAN F Mar 24, 2014 PLAN F [id number] LUIS MANUEL PERDOMO PATIENT [facility] [place] [facility] PREFERRED PROVIDER ORGANIZAT ION (PPO) [facility] SLE Sep 21, 2012 [id number] [phone] LUIS MANUEL PERDOMO PATIENT [employer] ([id number]) PRESCRIPT ION WL3A Sep 21, 2012 [id number] LUIS MANUEL PERDOMO PATIENT MEDICARE (WNR) MEDICARE (M) PART B Sep 21, 2012 PART B [id number] NOEMI PERDOMO PATIENT MEDICARE (WNR) MEDICARE (M) PART A Jan 22, 2011 PART A [id number] LEANNE, NOEMI PATIENT MEDICARE PART D (WNR) MEDICARE (M) PART D Mar 24, 2014 PART D [id number] LUIS MANUEL PERDOMO PATIENT Selected Encounter This section includes the information on record at [place] for the Encounter. Date/Time Encounter Type Encounter Description Reason Pro vider Source Sep 07, 2024 06:09 PM Inpatient Visit DAILY HOSPITALIZATION DATA [facility] Encounter Template Text not used by [place] Plan of Treatment: Future Appointments (+ 6 months) and Future Tests (+/- 45 days) The Plan of Treatment section includes future care activities for the patient [facility] [place] [facility] This section includes future appointments [...] of theEncounter. The data comes from all [facility] facilities. Test Date/Time Test Type Test Details Facility Name Sep 13, 2024 01:33 PM Consult Order [facility]IA [facility] Cons Horizontal Boring Mill Operator's Choice [facility] Lab Results: [...] Type Comment Sep 09, 2024 12:16 PM [facility] GLUCOSE-HAND MONITOR CAPILLARY Specimen Type: CAPILLARY Comment: Test performed by: [id number] Meter #: [id number] Ordering Provider: FRANCK TURNER Report Released Date/Time: Sep 09, 2024 12:33 PM Reporting Lab: [address] [address] Performing Lab: [address] [address] GLUCOSE-HAND MONITOR 116 mg/dL H Sep 09, 2024 06:07 AM [facility] GLUCOSE-HAND MONITOR CAPILLARY Specime n Type: CAPILLARY Comment: Test performed by: [id number] Meter #: [id number] Ordering Provider: FRANCK TURNER Report Released Date/Time: Sep 09, 2024 08:17 AM Reporting Lab: [address] [address] Performing Lab: [address] [address] GLUCOSE-HAND MONITOR 112 mg/dL H Sep 08, 2024 09:13 PM [facility] GLUCOSE-HAND MONITOR CAPILLARY Specime n Type: CAPILLARY Comment: Test performed by: [id number] Meter #: [id number] Ordering Provider: FRANCK TURNER Report Released Date/Time: Sep 08, 2024 09:31 PM Reporting Lab: [address] [address] Performing Lab: [address] [address] GLUCOSE-HAND MONITOR 107 mg/dL H Sep 08, 2024 03:49 PM [facility] GLUCOSE-HAND MONITOR CAPILLARY Specime n Type: CAPILLARY Comment: AAMIR RN notified Test performed by: [id number] Meter #: [id number] Ordering Provider: FRANCK TURNER Report Released Date/Time: Sep 08, 2024 04:33 PM Reporting Lab: [address] [address] Performing Lab: [address] [address] GLUCOSE-HAND MONITOR 162 mg/dL H Sep 08, 2024 11:43 AM [facility] GLUCOSE-HAND MONITOR CAPILLARY Specime n Type: CAPILLARY Comment: AAMIR RN notified Test performed by: [id number] Meter #: [id number] Ordering Provider: FRANCK TURNER Report Released Date/Time: Sep 08, 2024 12:03 PM Reporting Lab: [address] [address] Performing Lab: [address] [address] GLUCOSE-HAND MONITOR 133 mg/dL H Sep 08, 2024 06:13 AM [facility] GLUCOSE-HAND MONITOR CAPILLARY Specime n Type: CAPILLARY Comment: Test performed by: [id number] Meter #: [id number] Ordering Provider: FRANCK TURNER Report Released Date/Time: Sep 08, 2024 06:46 AM Reporting Lab: [address] [address] Performing Lab: [address] [address] GLUCOSE-HAND MONITOR 104 mg/dL H Sep 07, 2024 07:59 PM [facility] GLUCOSE-HAND MONITOR CAPILLARY Specime n Type: CAPILLARY Comment: Test performed by: [id number] Meter #: [id number] Ordering Provider: FRANCK TURNER Report Released Date/Time: Sep 07, 2024 09:05 PM Reporting Lab: [address] [address] Performing Lab: [address] [address] GLUCOSE-HAND MONITOR 107 mg/dL H Sep 07, 2024 04:39 PM [facility] GLUCOSE-HAND MONITOR CAPILLARY Specime n Type: CAPILLARY Comment: Test performed by: [id number] Meter #: [id number] Ordering Provider: FRANCK TURNER Report Released Date/Time: Sep 07, 2024 05:09 PM Reporting Lab: [address] [address] Performing Lab: [address] [address] GLUCOSE-HAND MONITOR 105 mg/dL H Sep 07, 2024 11:41 AM [facility] GLUCOSE-HAND MONITOR CAPILLARY Specime n Type: CAPILLARY Comment: Test performed by: [id number] Meter #: [id number] Ordering Provider: FRANCK TURNER Report Released Date/Time: Sep 07, 2024 12:41 PM Reporting Lab: [address] [address] Performing Lab: [address] [address] GLUCOSE-HAND MONITOR 144 mg/dL H Sep 07, 2024 05:56 AM [facility] GLUCOSE-HAND MONITOR CAPILLARY Specime n Type: CAPILLARY Comment: Test performed by: [id number] Meter #: [id number] Ordering Provider: FRANCK TURNER Report Released Date/Time: Sep 07, 2024 06:31 AM Reporting Lab: [address] [address] Performing Lab: [address] [address] GLUCOSE-HAND MONITOR 96 mg/dL Sep 06, 2024 08:10 PM [facility] GLUCOSE-HAND MONITOR CAPILLARY Specime n Type: CAPILLARY Comment: Test performed by: [id number] Meter #: [id number] Ordering Provider: FRANCK TURNER Report Released Date/Time: Sep 06, 2024 08:52 PM Reporting Lab: [address] [address] Performing Lab: [address] [address] GLUCOSE-HAND MONITOR 124 mg/dL H Sep 06, 2024 04:27 PM [facility] GLUCOSE-HAND MONITOR CAPILLARY Specime n Type: CAPILLARY Comment: Test performed by: [id number] Meter #: [id number] Ordering Provider: FRANCK TURNER Report Released Date/Time: Sep 06, 2024 05:15 PM Reporting Lab: [address] [address] Performing Lab: [address] [address] GLUCOSE-HAND MONITOR 107 mg/dL H Sep 06, 2024 12:12 PM [facility] GLUCOSE-HAND MONITOR CAPILLARY Specime n Type: CAPILLARY Comment: Test performed by: [id number] Meter #: [id number] Ordering Provider: FRANCK TURNER Report Released Date/Time: Sep 06, 2024 12:29 PM Reporting Lab: [address] [address] Performing Lab: [address] [address] GLUCOSE-HAND MONITOR 181 mg/dL H -Sep 06, 2024 06:13 AM [facility] GLUCOSE-HAND MONITOR CAPILLARY Specime n Type: CAPILLARY Comment: Test performed by: [id number] Meter #: [id number] Ordering Provider: FRANCK TURNER Report Released Date/Time: Sep 06, 2024 06:36 AM Reporting Lab: [address] [address] Performing Lab: [address] [address] GLUCOSE-HAND MONITOR 102 mg/dL H Sep 05, 2024 08:47 PM [facility] GLUCOSE-HAND MONITOR CAPILLARY Specime n Type: CAPILLARY Comment: Test performed by: [id number] Meter #: [id number] Ordering Provider: FRANCK TURNER Report Released Date/Time: Sep 06, 2024 02:13 AM Reporting Lab: [address] [address] Performing Lab: [address] [address] GLUCOSE-HAND MONITOR 103 mg/dL H Sep 05, 2024 04:40 PM [facility] GLUCOSE-HAND MONITOR CAPILLARY Specime n Type: CAPILLARY Comment: AAMIR RN notified Test performed by: [id number] Meter #: [id number] Ordering Provider: FRANCK TURNER Report Released Date/Time: Sep 05, 2024 05:11 PM Reporting Lab: [address] [address] Performing Lab: [address] [address] GLUCOSE-HAND MONITOR 113 mg/dL H Sep 05, 2024 12:06 PM [facility] GLUCOSE-HAND MONITOR CAPILLARY Specime n Type: CAPILLARY Comment: Test performed by: [id number] Meter #: [id number] Ordering Provider: FRANCK TURNER Report Released Date/Time: Sep 05, 2024 12:23 PM Reporting Lab: [address] [address] Performing Lab: [address] [address] GLUCOSE-HAND MONITOR 115 mg/dL H Sep 05, 2024 06:26 AM [facility] GLUCOSE-HAND MONITOR CAPILLARY Specime n Type: CAPILLARY Comment: AAMIR Correction Dose Test performed by: [id number] Meter #: [id number] Ordering Provider: FRANCK TURNER Report Released Date/Time: Sep 05, 2024 06:43 AM Reporting Lab: [address] [address] Performing Lab: [address] [address] GLUCOSE-HAND MONITOR 111 mg/dL H Sep 04, 2024 08:59 PM [facility] GLUCOSE-HAND MONITOR CAPILLARY Specime n Type: CAPILLARY Comment: AAMIR RN notified Test performed by: [id number] Meter #: [id number] Ordering Provider: FRANCK TURNER Report Released Date/Time: Sep 04, 2024 09:36 PM Reporting Lab: [address] [address] Performing Lab: [address] [address] GLUCOSE-HAND MONITOR 123 mg/dL H Sep 04, 2024 04:41 PM [facility] GLUCOSE-HAND MONITOR CAPILLARY Specime n Type: CAPILLARY Comment: AAMIR RN notified Test performed by: [id number] Meter #: [id number] Ordering Provider: FRANCK TURNER Report Released Date/Time: Sep 04, 2024 05:03 PM Reporting Lab: [address] [address] Performing Lab: [address] [address] GLUCOSE-HAND MONITOR 118 mg/dL H Sep 04, 2024 12:36 PM [facility] GLUCOSE-HAND MONITOR CAPILLARY Specime n Type: CAPILLARY Comment: AAMIR RN notified Test performed by: [id number] Meter #: [id number] Ordering Provider: FRANCK TURNER Report Released Date/Time: Sep 04, 2024 12:53 PM Reporting Lab: [address] [address] Performing Lab: [place] [address] GLUCOSE-HAND MONITOR 129 mg/dL H 71-99 Sep 04, 2024 12:03 PM [facility] RESPIRATORY VIRUS PANEL (BIOFIRE) NASOPHARYN X Specimen Type: NASOPHARYNX Comment: ~For Test: RESPIRATORY VIRUS PANEL (BIOFIRE) ~ORDER READ BACK TO: FRANCK TURNER 09/04/24@11:30 Ordering Provider: FRANCK TURNER Report Released Date/Time: Sep 04, 2024 11:33 AM Reporting Lab: [place] [id number] Performing Lab: [place] [id number] ADENOVIRUS (BIOFIRE) Not Detected -Not D etected [...] Detected Sep 04, 2024 06:55 AM [facility] MAGNESIUM PLASMA Specimen [...] 03, 2024 11:10 AM Reporting Lab: [place] [facility] [address] [facility] [address] Performing Lab: [place] [address] [facility] [address] MAGNESIUM 1.8 mg/dL 1.6-2.6 Sep 04, 2024 [...] Sep 03, 2024 11:10 AM Reporting Lab: [id number] [address] Performing Lab: [address] CREATININE 0.75 mg/dL 0.72-1.25 UREA NITROGEN [...] n Type: CAPILLARY Comment: Test performed by: [id number] Meter #: [id number] Ordering Provider: FRANCK TURNER Report Released Date/Time: Sep 04, 2024 06:28 AM Reporting Lab: [address] Performing Lab: [address] GLUCOSE-HAND MONITOR 114 mg/dL H 71-99 Sep 03, 2024 05:19 PM [facility] GLUCOSE-HAND MONITOR CAPILLARY Specime n Type: CAPILLARY Comment: Test performed by: [id number] Meter #: [id number] Ordering Provider: FRANCK TURNER Report Released Date/Time: Sep 03, 2024 05:37 PM Reporting Lab: [address] Performing Lab: [address] [address] GLUCOSE-HAND MONITOR 124 mg/dL H 71-99 Sep 03, 2024 04:41 PM [facility] GLUCOSE-HAND MONITOR CAPILLARY Specime n Type: CAPILLARY Comment: Test performed by: [id number] Meter #: [id number] Ordering Provider: FRANCK TURNER Report Released Date/Time: Sep 03, 2024 06:09 PM Reporting Lab: [address] [address] Performing Lab: [address] [address] GLUCOSE-HAND MONITOR 112 mg/dL H 71-99 Sep 03, 2024 01:35 PM [facility] URINE LYTES URINE Specimen Type : URINE Comment: ~Altered mental status with no identifiable cause Ordering Provider: FRANCK TURNER Report Released Date/Time: Sep 02, 2024 04:44 PM Reporting Lab: [address] [address] Performing Lab: [address] [address] SODIUM 130 mmol/L POTASSIUM 47.6 mmol/L CHLORIDE 137 mmol/L Sep 03, 2024 01:35 PM [facility] CREATININE URINE Specimen Type: URINE Comment: ~Altered mental status with no identifiable cause Ordering Provider: FRANCK TURNER Report Released Date/Time: Sep 02, 2024 04:44 PM Reporting Lab: [address] [address] Performing Lab: [address] [address] CREATININE 150.9 mg/dL Sep 03, 2024 01:35 PM [facility] UREA NITROGEN URINE Specimen Type : URINE Comment: ~Altered mental status with no identifiable cause Ordering Provider: FRANCK TURNER Report Released Date/Time: Sep 02, 2024 04:44 PM Reporting Lab: [address] [address] Performing Lab: [address] [address] UREA NITROGEN 320 mg/dL Sep 03, 2024 01:35 PM [facility] OSMOLALITY URINE Specimen Type: URINE Comment: ~Altered mental status with no identifiable cause Ordering Provider: FRANCK TURNER Report Released Date/Time: Sep 02, 2024 04:44 PM Reporting Lab: [address] [address] Performing Lab: [address] [address] OSMOLALITY 522 mosm/kg 38-1400 Sep 03, 2024 01:35 PM [facility] URINALYSIS WITH REFLEX TO CULTURE URINE Specimen Type: URINE Comment: ~Altered mental status with no identifiable cause Ordering Provider: FRANCK TURNER Report Released Date/Time: Sep 02, 2024 04:44 PM Reporting Lab: [address] [address] Performing Lab: [address] [address] URINE COLOR Yellow Colorless-Yellow APPEARANCE CLOUDY H [...] H 0-28 Sep 03, 2024 11:58 AM [facility] GLUCOSE-HAND MONITOR CAPILLARY Specime n Type: CAPILLARY Comment: AAMIR RN notified Test performed by: [id number] Meter #: [id number] Ordering Provider: FRANCK TURNER Report Released Date/Time: Sep 03, 2024 12:15 PM Reporting Lab: [address] [address] Performing Lab: [address] [address] GLUCOSE-HAND MONITOR 135 mg/dL H Sep 03, 2024 07:09 AM [facility] GLUCOSE-HAND MONITOR CAPILLARY Specime n Type: CAPILLARY Comment: Test performed by: [id number] Meter #: [id number] Ordering Provider: FRANCK TURNER Report Released Date/Time: Sep 03, 2024 07:26 AM Reporting Lab: [address] [address] Performing Lab: [address] [address] GLUCOSE-HAND MONITOR 120 mg/dL H -Sep 03, 2024 07:05 AM [facility] [...] Sep 02, 2024 04:29 PM Reporting Lab: [address] [address] Performing Lab: [address] [address] CREATININE 0.82 mg/dL 0.72-1.25 UREA NITROGEN 12 [...] Sep 02, 2024 04:29 PM Reporting Lab: [address] [address] Performing Lab: [address] [address] WBC 6.9 10*3/uL 5.0-10.0 RBC 3.48 10*6/uL [...] Sep 02, 2024 04:29 PM Reporting Lab: [address] [address] Performing Lab: [address] [address] MAGNESIUM 1.7 mg/dL 1.6-2.6 Sep 03, 2024 07:05 AM [facility] GLYCOHEMOGLOBIN BLOOD Specimen Type: BLOOD Comment: Prediabetes: 5.7%-6.4% Diabetes: >= 6.5% [place]-DoD guidelines for A1c interpretation: Glycemic control targets [...] 8.73 and 9.27. Ref: https://ngsp.org/CAPdata.asp. The in-house [employer] Ultracold([employer])-Devver D-100 analyzer has a historical CV <= 2%. Contact the laboratory for further performance characteristics of this assay. Ordering Provider: FRANCK TURNER Report Released Date/Time: Sep 02, 2024 04:29 PM Reporting Lab: [address] [address] Performing Lab: [place] [phone] GLYCOHEMOGLOBIN 5.6 4.4-5.6 Sep 03, 2024 07:05 AM [facility] OSMOLALITY SERUM Specimen Type: SERUM No comment entered. Ordering Provider: FRANCK TURNER Report Released Date/Time: Sep 02, 2024 04:44 PM Reporting Lab: [address] [address] Performing Lab: [address] [address] OSMOLALITY 271 mosm/kg L 280-300 Sep 02, 2024 08:15 PM [facility] GLUCOSE-HAND MONITOR CAPILLARY Specime n Type: CAPILLARY Comment: AAMIR DEXTER notified Test performed by: [id number] Meter #: [id number] Ordering Provider: FRANCK TURNER Report Released Date/Time: Sep 02, 2024 08:57 PM Reporting Lab: [address] [address] Performing Lab: [address] [address] GLUCOSE-HAND MONITOR 126 mg/dL H 71-99 Sep [...] Sep 02, 2024 05:12 PM Reporting Lab: [address] [address] Performing Lab: [address] [address] MRSA SURVL NARES DNA Negative Negative Sep 02, 2024 05:36 PM [facility] GLUCOSE-HAND MONITOR CAPILLARY Specime n Type: CAPILLARY Comment: Test performed by: [id number] Meter #: [id number] Ordering Provider: FRANCK TURNER Report Released Date/Time: Sep 02, 2024 05:53 PM Reporting Lab: [address] [address] Performing Lab: [address] [address] GLUCOSE-HAND MONITOR 127 mg/dL H 71-99 Aug 29, 2024 10:04 PM [facility] URINALYSIS WITH REFLEX TO CULTURE URINE Specimen Type: URINE Comment: ~For Test: URINALYSIS WITH REFLEX TO CULTURE ~REORDER Ordering Provider: FELISA COLE Report Released Date/Time: Aug 29, 2024 09:36 PM Reporting Lab: [address] [address] Performing Lab: [address] [address] URINE COLOR Yellow Colorless-Yellow APPEARANCE Clear Clear [...] /[LPF] 0-28 Aug 29, 2024 08:32 PM [facility] HIGH SENSITIVITY TROPONIN I PLASMA [...] Aug 29, 2024 07:55 PM Reporting Lab: [address] [address] Performing Lab: [address] [address] HIGH SENSITIVITY TROPONIN I 7 4-35 Aug 29, 2024 08:32 PM [facility] CBC/PLT BLOOD Specimen Type: BLOOD No comment entered. Ordering Provider: FELISA COLE Report Released Date/Time: Aug 29, 2024 07:55 PM Reporting Lab: [address] [address] Performing Lab: [address] [address] WBC 11.2 10*3/uL H 5.0-10.0 RBC 3.97 10*6/uL L 4.6-6.2 HGB 10.9 g/dL L 14.0-18.0 HCT 33.5 L 42.0-52.0 MCV 84.4 fL 80.0-94.0 MCH 27.5 pg 27.0-31.0 MCHC 32.5 g/dL 32.0-36.0 PLT 230 10*3/uL 150-450 MPV 10.2 fL 9.0-13.1 RDW 14.6 11.0-16.0 NRBC 0.0 0.0-0.0 Aug 29, 2024 08:32 PM [facility] PANEL 5 PLASMA Specimen Type: [...] Aug 29, 2024 07:55 PM Reporting Lab: [address] [address] Performing Lab: [address] [address] CREATININE 0.85 mg/dL 0.72-1.25 UREA NITROGEN 15 [...] 07, 2024 09:02 PM 0 [place] Sep 07, 2024 08:01 PM 97.8 F 66 /min 148/76 mm[Hg] 16 /min 95 % [facility] Sep 07, 2024 04:38 PM 97.0 F 61 /min 122/69 mm[Hg] 20 /min 94 % 0 [place] Sep 07, 2024 02:23 PM 0 [place] Sep 07, 2024 12:08 PM 62 /min 118/68 mm[Hg] [place] [facility] Advance Directives: All historical and current [...] 08, 2024 ADVANCE DIRECTIVE DISCUSSION [facility] Radiology Reports: +/- 30 days [...] BRAIN W & W/O: LUIS MANUEL PERDOMO [id number] -1945 M Exm Date: SEP 06, 2024@13:40 Req Phys: FRANCK TURNER Loc: 5-MED/TEL/09-06-2024@19:09 Img Loc: [facility] Service: [place] [address] (Case [id number] COMPLETE) MRI BRAIN W & W/O (MRI Detailed) CPT:11914 Contrast Media : Gadolinium Reason for Study: SEE CLINICAL HISTORY Pharmaceutical: GADOTERIDOL 279.3MG/ML 20ML INJ, 19ml Clinical History: MRI Screening (Required): IMPLANTED DEVICE DOCUMENTATION IMPLANTED DEVICE DOCUMENTATION NOT FOUND Does the Dragoon have any Cardiac Implants? None Does the have any implanted stimulators? None Does the [place] have cochlear implants? No Does the have [...] 06, 2024 Date Verified: SEP 06, 2024 Out And Out Cigar Maker Hand E-Sig: Report: MRI brain without and with [...] Staff: ARCENIO LEYVA, Staff Radiologist Verified by food products tester for ARCENIO LEYVA /ARCENIO AVILA-[facility] Sep 06, 2024 01:40 PM MRI C SPINE W & W/ O CONTRAST(FURTHER SEQUENCES): LUIS MANUEL PERDOMO [id number] -1945 M Exm Date: SEP 06, 2024@13:40 Req Phys: FRANCK TURNERISIAHFLOSav Pat Loc: 5-MED/TEL/09-07-2024@06:42 Img Loc: [facility] Service: [place] [address] (Case [id number] COMPLETE) MRI C SPINE W & W/O CONTRAST(FURT(MRI Detailed) CPT:27093 Contrast Media : Gadolinium Reason for Study: SEE CLINICAL HISTORY Pharmaceutical: GADOTERIDOL 279.3MG/ML 20ML INJ, 19ml Clinical History: STATUS OF PLAIN FILMS:Not performed (Provide justification for MR W/O prior plain films below.) MRI for MS MRI Screening (Required): IMPLANTED DEVICE DOCUMENTATION IMPLANTED DEVICE DOCUMENTATION NOT FOUND Does the Dragoon have any Cardiac Implants? None Does the Dragoon have any implanted stimulators? None Does the [place] have cochlear implants? No Does the have Cerebral aneurysm clip(s)? I don't know Does the Dragoon have any shrapnel? I don't know If [...] 07, 2024 Date Verified: SEP 07, 2024 Out And Out Cigar Maker Hand E-Sig: Report: EXAMINATION: MRI OF THE CERVICAL [...] Interpreting Staff: HUANG TAI, Radiologist Verified by food products tester for HUANG TAI /HUANG WHEATLEY-MALKA [facility] Sep 03, 2024 10:45 AM CHEST SINGLE(1) EW: LUIS MANUEL PERDOMO [id number] -1945 M Exm Date: SEP 03, 2024@10:45 Req Phys: FRANCK TURNER Pat Loc: 5-MED/TEL/09-03-2024@10:56 Img Loc: [facility] RAD[facility]Y Service: [place] [address] (Case [id number] COMPLETE)CHEST SINGLE(1) VIEW (RAD Detailed) CPT:57718 Proc Modifiers : PORTABLE EXAM Reason for Study: Eval volume status Clinical History: Report Status: Verified Date Reported: SEP 03, 2024 Date Verified: SEP 03, 2024 Out And Out Cigar Maker Hand E-Sig: Report: EXAMINATION: SINGLE VIEW CHEST CLINICAL [...] Interpreting Staff: HUANG TAI, Radiologist Verified by food products tester for HUANG TAI /HUANG WHEATLEY-[facility] Aug 29, 2024 08:[address] HEAD W/O CONT: LUIS MANUEL PERDOMO [id number] -1945 M Exm Date: AUG 29, 2024@20:28 Req Phys: FELISA COLE Loc: ED/4P-12A (Req'g Loc) Img Loc: CT SCAN Service: Unknown [place] [id number] (Case [id number] COMPLETE) CT HEAD W/O CONT (CT Detailed) CPT:44348 Reason for Study: SEE CLINICAL HISTORY Clinical History: REASON FOR SEND OUT: ATTENDING PHYSICIAN NAME: New transient neurological s/s - suspected TIA HISTORY/REASON FOR EXAM: confusion Report Status: Verified Date Reported: AUG 29, 2024 Date Verified: AUG 29, 2024 Out And Out Cigar Maker Hand E-Sig: Report: HISTORY confusion COMPARISON No [...] Staff: ABDIRAHMAN CROW, Staff Physician Verified by food products tester for ABDIRAHMAN CROW /[facility] Pathology Reports: +/- 30 days [...] [facility] [CLIA# [id number]] [address] [place] [id number] Accession [UID]: [id number] [[id number]] Received: Sep 03, 2024@14:02 Collection sample: URINE, [...] [facility] [CLIA# [id number]] [address] [place] [id number] [facility] Sep 02, 2024 06:00 PM LR MICROBIOLOGY RE PORT: Reporting Lab: [facility] [CLIA# [id number]] [address] [place] [address] Accession [UID]: [id number] [[id number]] Received: Sep 02, 2024@18:07 Collection sample: BLD CULTURE BOTTLES Collection date: Sep 02, 2024 18:00 Site/Specimen: BLOOD Provider: FRANCK TURNER Comment on specimen: L HAND Test(s) ordered: CULTURE, BLOOD................ completed: Sep 08, 2024 * BACTERIOLOGY FINAL REPORT => Sep 08, 2024 08:25 TECH CODE: [id number] Bacteriology Remark(s): Blood culture status=NO GROWTH (unless notified otherwise) 09/03/2024 AEROBIC: NO GROWTH ANAEROBIC: NO GROWTH =--=--=--=--=--=--=--=--=--=-- =--=--=--=--=--=--=--=--=--=-- =--=--=--=--=--=-- Performing Laboratory: Bacteriology Report Performed By: [facility] [CLIA# [id number]] [address] [place] [address] MAGDY CALABRESE [facility] Aug 29, 2024 10:18 PM LR MICROBIOLOGY RE PORT: Reporting Lab: [facility] [CLIA# [id number]] [address] [place] [address] Accession [UID]: [id number] [[id number]] Received: Aug 29, 2024@22:18 Collection sample: URINE, CLEAN CATCH Collection date: Aug 29, 2024 22:18 Site/Specimen: URINE Provider: FELISA COLE Test(s) ordered: CULTURE, URINE................ completed: Aug 31, 2024 09:51 * BACTERIOLOGY FINAL REPORT => Aug 31, 2024 09:51 TECH CODE: [id number] Bacteriology Remark(s): NO GROWTH 08/30/2024 <10,000 CFU/ML. 08/31/2024 =--=--=--=--=--=--=--=--=--=-- =--=--=--=--=--=--=--=--=--=-- =--=--=--=--=--=-- Performing Laboratory: Bacteriology Report Performed By: [facility] [CLIA# [id number]] [address] [place] [address] MAGDY CALABRESE-Sav [facility]
--- OUTSIDE RECORDS SUMMARY | 2024-09-07 14:54 | XMS_ITS ---
[place] DAILY HOSPITALIZATION DATA [facility] Encounter Summary Created on: September 22, 2024 LUIS MANUEL PERDOMO : 1945 Sex: Male Author Name [facility] Organization [facility] Address [address] [place] [address] Care Team Providers Care Lunch Counter Manager Name Role Phone YULISSA HENDERSON Primary [...] PLAN F Mar 24, 2014 PLAN F [id number] LUIS MANUEL PERDOMO PATIENT [facility] [place] [facility] PREFERRED PROVIDER ORGANIZAT ION (PPO) [facility] SLE Sep 21, 2012 [id number] [phone] LUIS MANUEL PERDOMO PATIENT [employer] ([id number]) PRESCRIPT ION WL3A Sep 21, 2012 [id number] LUIS MANUEL PERDOMO PATIENT MEDICARE (WNR) MEDICARE (M) PART B Sep 21, 2012 PART B [id number] NOEMI PERDOMO PATIENT MEDICARE (WNR) MEDICARE (M) PART A Jan 22, 2011 PART A [id number] LEANNE, NOEMI PATIENT MEDICARE PART D (WNR) MEDICARE (M) PART D Mar 24, 2014 PART D [id number] LUIS MANUEL PERDOMO PATIENT Selected Encounter This section includes the information on record at [place] for the Encounter. Date/Time Encounter Type Encounter Description Reason Pro vider Source Sep 07, 2024 06:54 PM Inpatient Visit DAILY HOSPITALIZATION DATA [facility] Encounter Template Text not used by [place] Plan of Treatment: Future Appointments (+ 6 months) and Future Tests (+/- 45 days) The Plan of Treatment section includes future care activities for the patient from all [place] [facility]. This section includes future appointments and future [...] Sep 13, 2024 01:33 PM Consult Order [facility] SKILLED HOME CARE Cons [employer] Presser's Choice [facility] Lab Results: +/- [...] Type Comment Sep 09, 2024 12:16 PM PSYCHIATRIC GLUCOSE-HAND MONITOR CAPILLARY Specimen Type: CAPILLARY Comment: Test performed by: [id number] Meter #: [id number] Ordering Provider: FRANCK TURNER Report Released Date/Time: Sep 09, 2024 12:33 PM Reporting Lab: [address] [address] Performing Lab: [address] [address] GLUCOSE-HAND MONITOR 116 mg/dL H Sep 09, 2024 06:07 AM [facility] GLUCOSE-HAND MONITOR CAPILLARY Specime n Type: CAPILLARY Comment: Test performed by: [id number] Meter #: [id number] Ordering Provider: FRANCK TURNER Report Released Date/Time: Sep 09, 2024 08:17 AM Reporting Lab: [address] [address] Performing Lab: [address] [address] GLUCOSE-HAND MONITOR 112 mg/dL H Sep 08, 2024 09:13 PM [facility] GLUCOSE-HAND MONITOR CAPILLARY Specime n Type: CAPILLARY Comment: Test performed by: [id number] Meter #: [id number] Ordering Provider: FRANCK TURNER Report Released Date/Time: Sep 08, 2024 09:31 PM Reporting Lab: [address] [address] Performing Lab: [address] [address] GLUCOSE-HAND MONITOR 107 mg/dL H Sep 08, 2024 03:49 PM [facility] GLUCOSE-HAND MONITOR CAPILLARY Specime n Type: CAPILLARY Comment: AAMIR RN notified Test performed by: [id number] Meter #: [id number] Ordering Provider: FRANCK TURNER Report Released Date/Time: Sep 08, 2024 04:33 PM Reporting Lab: [address] [address] Performing Lab: [address] [address] GLUCOSE-HAND MONITOR 162 mg/dL H Sep 08, 2024 11:43 AM [facility] GLUCOSE-HAND MONITOR CAPILLARY Specime n Type: CAPILLARY Comment: AAMIR RN notified Test performed by: [id number] Meter #: [id number] Ordering Provider: FRANCK TURNER Report Released Date/Time: Sep 08, 2024 12:03 PM Reporting Lab: [address] [address] Performing Lab: [address] [address] GLUCOSE-HAND MONITOR 133 mg/dL H Sep 08, 2024 06:13 AM [facility] GLUCOSE-HAND MONITOR CAPILLARY Specime n Type: CAPILLARY Comment: Test performed by: [id number] Meter #: [id number] Ordering Provider: FRANCK TURNER Report Released Date/Time: Sep 08, 2024 06:46 AM Reporting Lab: [address] [address] Performing Lab: [address] [address] GLUCOSE-HAND MONITOR 104 mg/dL H Sep 07, 2024 07:59 PM [facility] GLUCOSE-HAND MONITOR CAPILLARY Specime n Type: CAPILLARY Comment: Test performed by: [id number] Meter #: [id number] Ordering Provider: FRANCK TURNER Report Released Date/Time: Sep 07, 2024 09:05 PM Reporting Lab: [address] [address] Performing Lab: [address] [address] GLUCOSE-HAND MONITOR 107 mg/dL H Sep 07, 2024 04:39 PM [facility] GLUCOSE-HAND MONITOR CAPILLARY Specime n Type: CAPILLARY Comment: Test performed by: [id number] Meter #: [id number] Ordering Provider: FRANCK TURNER Report Released Date/Time: Sep 07, 2024 05:09 PM Reporting Lab: [address] [address] Performing Lab: [address] [address] GLUCOSE-HAND MONITOR 105 mg/dL H Sep 07, 2024 11:41 AM [facility] GLUCOSE-HAND MONITOR CAPILLARY Specime n Type: CAPILLARY Comment: Test performed by: [id number] Meter #: [id number] Ordering Provider: FRANCK TURNER Report Released Date/Time: Sep 07, 2024 12:41 PM Reporting Lab: [address] [address] Performing Lab: [address] [address] GLUCOSE-HAND MONITOR 144 mg/dL H Sep 07, 2024 05:56 AM [facility] GLUCOSE-HAND MONITOR CAPILLARY Specime n Type: CAPILLARY Comment: Test performed by: [id number] Meter #: [id number] Ordering Provider: FRANCK TURNER Report Released Date/Time: Sep 07, 2024 06:31 AM Reporting Lab: [address] [address] Performing Lab: [address] [address] GLUCOSE-HAND MONITOR 96 mg/dL Sep 06, 2024 08:10 PM [facility] GLUCOSE-HAND MONITOR CAPILLARY Specime n Type: CAPILLARY Comment: Test performed by: [id number] Meter #: [id number] Ordering Provider: FRANCK TURNER Report Released Date/Time: Sep 06, 2024 08:52 PM Reporting Lab: [address] [address] Performing Lab: [address] [address] GLUCOSE-HAND MONITOR 124 mg/dL H Sep 06, 2024 04:27 PM [facility] GLUCOSE-HAND MONITOR CAPILLARY Specime n Type: CAPILLARY Comment: Test performed by: [id number] Meter #: [id number] Ordering Provider: FRANCK TURNER Report Released Date/Time: Sep 06, 2024 05:15 PM Reporting Lab: [address] [address] Performing Lab: [address] [address] GLUCOSE-HAND MONITOR 107 mg/dL H Sep 06, 2024 12:12 PM [facility] GLUCOSE-HAND MONITOR CAPILLARY Specime n Type: CAPILLARY Comment: Test performed by: [id number] Meter #: [id number] Ordering Provider: FRANCK TURNER Report Released Date/Time: Sep 06, 2024 12:29 PM Reporting Lab: [address] [address] Performing Lab: [address] [address] GLUCOSE-HAND MONITOR 181 mg/dL H -Sep 06, 2024 06:13 AM [facility] GLUCOSE-HAND MONITOR CAPILLARY Specime n Type: CAPILLARY Comment: Test performed by: [id number] Meter #: [id number] Ordering Provider: FRANCK TURNER Report Released Date/Time: Sep 06, 2024 06:36 AM Reporting Lab: [address] [address] Performing Lab: [address] [address] GLUCOSE-HAND MONITOR 102 mg/dL H Sep 05, 2024 08:47 PM [facility] GLUCOSE-HAND MONITOR CAPILLARY Specime n Type: CAPILLARY Comment: Test performed by: [id number] Meter #: [id number] Ordering Provider: FRANCK TURNER Report Released Date/Time: Sep 06, 2024 02:13 AM Reporting Lab: [address] [address] Performing Lab: [address] [address] GLUCOSE-HAND MONITOR 103 mg/dL H Sep 05, 2024 04:40 PM [facility] GLUCOSE-HAND MONITOR CAPILLARY Specime n Type: CAPILLARY Comment: AAMIR RN notified Test performed by: [id number] Meter #: [id number] Ordering Provider: FRANCK TURNER Report Released Date/Time: Sep 05, 2024 05:11 PM Reporting Lab: [address] [address] Performing Lab: [address] [address] GLUCOSE-HAND MONITOR 113 mg/dL H Sep 05, 2024 12:06 PM [facility] GLUCOSE-HAND MONITOR CAPILLARY Specime n Type: CAPILLARY Comment: Test performed by: [id number] Meter #: [id number] Ordering Provider: FRANCK TURNER Report Released Date/Time: Sep 05, 2024 12:23 PM Reporting Lab: [address] [address] Performing Lab: [address] [address] GLUCOSE-HAND MONITOR 115 mg/dL H Sep 05, 2024 06:26 AM [facility] GLUCOSE-HAND MONITOR CAPILLARY Specime n Type: CAPILLARY Comment: AAMIR Correction Dose Test performed by: [id number] Meter #: [id number] Ordering Provider: FRANCK TURNER Report Released Date/Time: Sep 05, 2024 06:43 AM Reporting Lab: [address] [address] Performing Lab: [address] [address] GLUCOSE-HAND MONITOR 111 mg/dL H Sep 04, 2024 08:59 PM [facility] GLUCOSE-HAND MONITOR CAPILLARY Specime n Type: CAPILLARY Comment: AAMIR RN notified Test performed by: [id number] Meter #: [id number] Ordering Provider: FRANCK TURNER Report Released Date/Time: Sep 04, 2024 09:36 PM Reporting Lab: [address] [address] Performing Lab: [address] [address] GLUCOSE-HAND MONITOR 123 mg/dL H Sep 04, 2024 04:41 PM [facility] GLUCOSE-HAND MONITOR CAPILLARY Specime n Type: CAPILLARY Comment: AAMIR RN notified Test performed by: [id number] Meter #: [id number] Ordering Provider: FRANCK TURNER Report Released Date/Time: Sep 04, 2024 05:03 PM Reporting Lab: [address] [address] Performing Lab: [address] [address] GLUCOSE-HAND MONITOR 118 mg/dL H Sep 04, 2024 12:36 PM [facility] GLUCOSE-HAND MONITOR CAPILLARY Specime n Type: CAPILLARY Comment: AAMIR RN notified Test performed by: [id number] Meter #: [id number] Ordering Provider: FRANCK TURNER Report Released Date/Time: Sep 04, 2024 12:53 PM Reporting Lab: [address] [address] Performing Lab: [place] [address] GLUCOSE-HAND MONITOR 129 mg/dL H 71-99 Sep 04, 2024 12:03 PM [facility] RESPIRATORY VIRUS PANEL (BIOFIRE) NASOPHARYN X Specimen Type: NASOPHARYNX Comment: ~For Test: RESPIRATORY VIRUS PANEL (BIOFIRE) ~ORDER READ BACK TO: FRANCK TURNER 09/04/24@11:30 Ordering Provider: FRANCK TURNER Report Released Date/Time: Sep 04, 2024 11:33 AM Reporting Lab: [place] [phone] Performing Lab: [place] [phone] ADENOVIRUS (BIOFIRE) Not Detected -Not D etected [...] 03, 2024 11:10 AM Reporting Lab: [facility] [address] [facility] [address] Performing Lab: [place] [address] [facility] [address] MAGNESIUM 1.8 mg/dL 1.6-2.6 Sep 04, 2024 [...] Sep 03, 2024 11:10 AM Reporting Lab: [address] [address] Performing Lab: [address] CREATININE 0.75 mg/dL 0.72-1.25 UREA NITROGEN [...] n Type: CAPILLARY Comment: Test performed by: [id number] Meter #: [id number] Ordering Provider: FRANCK TURNER Report Released Date/Time: Sep 04, 2024 06:28 AM Reporting Lab: [address] Performing Lab: [address] GLUCOSE-HAND MONITOR 114 mg/dL H 71-99 Sep 03, 2024 05:19 PM [facility] GLUCOSE-HAND MONITOR CAPILLARY Specime n Type: CAPILLARY Comment: Test performed by: [id number] Meter #: [id number] Ordering Provider: FRANCK TURNER Report Released Date/Time: Sep 03, 2024 05:37 PM Reporting Lab: [address] Performing Lab: [address] [address] GLUCOSE-HAND MONITOR 124 mg/dL H 71-99 Sep 03, 2024 04:41 PM [facility] GLUCOSE-HAND MONITOR CAPILLARY Specime n Type: CAPILLARY Comment: Test performed by: [id number] Meter #: [id number] Ordering Provider: FRANCK TURNER Report Released Date/Time: Sep 03, 2024 06:09 PM Reporting Lab: [address] [address] Performing Lab: [address] [address] GLUCOSE-HAND MONITOR 112 mg/dL H 71-99 Sep 03, 2024 01:35 PM [facility] URINE LYTES URINE Specimen Type : URINE Comment: ~Altered mental status with no identifiable cause Ordering Provider: FRANCK TURNER Report Released Date/Time: Sep 02, 2024 04:44 PM Reporting Lab: [address] [address] Performing Lab: [address] [address] SODIUM 130 mmol/L POTASSIUM 47.6 mmol/L CHLORIDE 137 mmol/L Sep 03, 2024 01:35 PM [facility] CREATININE URINE Specimen Type: URINE Comment: ~Altered mental status with no identifiable cause Ordering Provider: FRANCK TURNER Report Released Date/Time: Sep 02, 2024 04:44 PM Reporting Lab: [address] [address] Performing Lab: [address] [address] CREATININE 150.9 mg/dL Sep 03, 2024 01:35 PM [facility] OSMOLALITY URINE Specimen Type: URINE Comment: ~Altered mental status with no identifiable cause Ordering Provider: FRANCK TURNER Report Released Date/Time: Sep 02, 2024 04:44 PM Reporting Lab: [address] [address] Performing Lab: [address] [address] OSMOLALITY 522 mosm/kg 38-1400 Sep 03, 2024 01:35 PM [facility] URINALYSIS WITH REFLEX TO CULTURE URINE Specimen Type: URINE Comment: ~Altered mental status with no identifiable cause Ordering Provider: FRANCK TURNER Report Released Date/Time: Sep 02, 2024 04:44 PM Reporting Lab: [address] [address] Performing Lab: [address] [address] URINE COLOR Yellow Colorless-Yellow APPEARANCE CLOUDY H [...] Sep 02, 2024 04:44 PM Reporting Lab: [place] [phone] Performing Lab: [place] [phone] UREA NITROGEN 320 mg/dL Sep 03, 2024 11:58 AM [facility] GLUCOSE-HAND MONITOR CAPILLARY Specime n Type: CAPILLARY Comment: AAMIR RN notified Test performed by: [id number] Meter #: [id number] Ordering Provider: FRANCK TURNER Report Released Date/Time: Sep 03, 2024 12:15 PM Reporting Lab: [place] [phone] Performing Lab: [place] [phone] GLUCOSE-HAND MONITOR 135 mg/dL H Sep 03, 2024 07:09 AM [facility] GLUCOSE-HAND MONITOR CAPILLARY Specime n Type: CAPILLARY Comment: Test performed by: [id number] Meter #: [id number] Ordering Provider: FRANCK TURNER Report Released Date/Time: Sep 03, 2024 07:26 AM Reporting Lab: [address] [address] Performing Lab: [place] [phone] GLUCOSE-HAND MONITOR 120 mg/dL H Sep 03, 2024 07:05 AM [facility] CBC/PLT BLOOD Specimen Type: BLOOD No comment entered. Ordering Provider: FRANCK TURNER Report Released Date/Time: Sep 02, 2024 04:29 PM Reporting Lab: [address] [address] Performing Lab: [address] [address] WBC 6.9 10*3/uL 5.0-10.0 RBC 3.48 10*6/uL [...] Sep 02, 2024 04:29 PM Reporting Lab: [address] [address] Performing Lab: [address] [address] MAGNESIUM 1.7 mg/dL 1.6-2.6 Sep 03, 2024 [...] Sep 02, 2024 04:29 PM Reporting Lab: [address] [address] Performing Lab: [address] [address] CREATININE 0.82 mg/dL 0.72-1.25 UREA NITROGEN 12 [...] BLOOD Comment: Prediabetes: 5.7%-6.4% Diabetes: >= 6.5% [facility] guidelines for A1c interpretation: Glycemic [...] 8.73 and 9.27. Ref: https://ngsp.org/CAPdata.asp. The in-house [employer] D-100 analyzer has a historical CV <= 2%. Contact the laboratory for further performance characteristics of this assay. Ordering Provider: FRANCK TURNER Report Released Date/Time: Sep 02, 2024 04:29 PM Reporting Lab: [address] [address] Performing Lab: [place] [phone] GLYCOHEMOGLOBIN 5.6 4.4-5.6 Sep 03, 2024 07:05 AM [facility] OSMOLALITY SERUM Specimen Type: SERUM No comment entered. Ordering Provider: FRANCK TURNER Report Released Date/Time: Sep 02, 2024 04:44 PM Reporting Lab: [address] [address] Performing Lab: [address] [address] OSMOLALITY 271 mosm/kg L 280-300 Sep 02, 2024 08:15 PM [facility] GLUCOSE-HAND MONITOR CAPILLARY Specime n Type: CAPILLARY Comment: AAMIR DEXTER notified Test performed by: [id number] Meter #: [id number] Ordering Provider: FRANCK TURNER Report Released Date/Time: Sep 02, 2024 08:57 PM Reporting Lab: [address] [address] Performing Lab: [address] [address] GLUCOSE-HAND MONITOR 126 mg/dL H 71-99 Sep [...] Sep 02, 2024 05:12 PM Reporting Lab: [address] [address] Performing Lab: [address] [address] MRSA SURVL NARES DNA Negative Negative Sep 02, 2024 05:36 PM [facility] GLUCOSE-HAND MONITOR CAPILLARY Specime n Type: CAPILLARY Comment: Test performed by: [id number] Meter #: [id number] Ordering Provider: FRANCK TURNER Report Released Date/Time: Sep 02, 2024 05:53 PM Reporting Lab: [address] [address] Performing Lab: [address] [address] GLUCOSE-HAND MONITOR 127 mg/dL H 71-99 Aug 29, 2024 10:04 PM [facility] URINALYSIS WITH REFLEX TO CULTURE URINE Specimen Type: URINE Comment: ~For Test: URINALYSIS WITH REFLEX TO CULTURE ~REORDER Ordering Provider: FELISA COLE Report Released Date/Time: Aug 29, 2024 09:36 PM Reporting Lab: [address] [address] Performing Lab: [address] [address] URINE COLOR Yellow Colorless-Yellow APPEARANCE Clear Clear [...] Aug 29, 2024 07:55 PM Reporting Lab: [address] [address] Performing Lab: [address] [address] HIGH SENSITIVITY TROPONIN I 7 4-35 Aug 29, 2024 08:32 PM [facility] CBC/PLT BLOOD Specimen Type: BLOOD No comment entered. Ordering Provider: FELISA COLE Report Released Date/Time: Aug 29, 2024 07:55 PM Reporting Lab: [address] [address] Performing Lab: [address] [address] WBC 11.2 10*3/uL H 5.0-10.0 RBC 3.97 [...] Aug 29, 2024 07:55 PM Reporting Lab: [address] [address] Performing Lab: [address] [address] CREATININE 0.85 mg/dL 0.72-1.25 UREA NITROGEN 15 [...] 07, 2024 09:02 PM 0 [place] Sep 07, 2024 08:01 PM 97.8 F 66 /min 148/76 mm[Hg] 16 /min 95 % [facility] Sep 07, 2024 04:38 PM 97.0 F 61 /min 122/69 mm[Hg] 20 /min 94 % 0 [place] [facility] Sep 07, 2024 02:23 PM 0 [place] [facility] Sep 07, 2024 12:08 PM 62 /min 118/68 mm[Hg] [place] Advance Directives: All historical and [...] 08, 2024 ADVANCE DIRECTIVE DISCUSSION [facility] Radiology Reports: +/- 30 days of [...] BRAIN W & W/O: LUIS MANUEL PERDOMO [id number] -1945 M Exm Date: SEP 06, 2024@13:40 Req Phys: FRANCK TURNER Loc: 5-MED/TEL/09-06-2024@19:09 Img Loc: [facility] Service: [place] [address] (Case [id number] COMPLETE) MRI BRAIN W & W/O (MRI Detailed) CPT:00571 Contrast Media : Gadolinium Reason for Study: SEE CLINICAL HISTORY Pharmaceutical: GADOTERIDOL 279.3MG/ML 20ML INJ, 19ml Clinical History: MRI Screening (Required): IMPLANTED DEVICE DOCUMENTATION IMPLANTED DEVICE DOCUMENTATION NOT FOUND Does the [place] have any Cardiac Implants? None Does the have any implanted stimulators? None Does the [place] have cochlear implants? No Does the have [...] 2024 Date Verified: SEP 06, 2024 Office Administrative Assistant E-Sig: Report: MRI brain without and [...] Staff: ARCENIO LEYVA, Staff Radiologist Verified by lockstitch waistline joiner for ARCENIO LEYVA /ARCENIO AVILA-[facility] Sep 06, 2024 01:40 PM MRI C SPINE W & W/ O CONTRAST(FURTHER SEQUENCES): LUIS MANUEL PERDOMO [id number] -1945 M Exm Date: SEP 06, 2024@13:40 Req Phys: FRANCK TURNERISIAHFLOSav Pat Loc: 5-MED/TEL/09-07-2024@06:42 Img Loc: [facility] Service: [place] [address] (Case [id number] COMPLETE) MRI C SPINE W & W/O CONTRAST(FURT(MRI Detailed) CPT:51250 Contrast Media : Gadolinium Reason for Study: SEE CLINICAL HISTORY Pharmaceutical: GADOTERIDOL 279.3MG/ML 20ML INJ, 19ml Clinical History: STATUS OF PLAIN FILMS:Not performed (Provide justification for MR W/O prior plain films below.) MRI for MS MRI Screening (Required): IMPLANTED DEVICE DOCUMENTATION IMPLANTED DEVICE DOCUMENTATION NOT FOUND Does the [place] have any Cardiac Implants? None Does the [place] have any implanted stimulators? None Does the [place] have cochlear implants? No Does the have Cerebral aneurysm clip(s)? I don't know Does the [place] have any shrapnel? I don't know If [...] 2024 Date Verified: SEP 07, 2024 Office Administrative Assistant E-Sig: Report: EXAMINATION: MRI OF THE [...] Interpreting Staff: HUANG TAI, Radiologist Verified by lockstitch waistline joiner for HUANG TAI /HUANG [place] Sep 03, 2024 10:45 AM CHEST SINGLE(1) EW: LUIS MANUEL PERDOMO [id number] -1945 M Exm Date: SEP 03, 2024@10:45 Req Phys: FRANCK TURNER Pat Loc: 5-MED/TEL/09-03-2024@10:56 Img Loc: [facility] Service: [place] [address] (Case [id number] COMPLETE)CHEST SINGLE(1) VIEW (RAD Detailed) CPT:21098 Proc Modifiers : PORTABLE EXAM Reason for Study: Eval volume status Clinical History: Report Status: Verified Date Reported: SEP 03, 2024 Date Verified: SEP 03, 2024 Office Administrative Assistant E-Sig: Report: EXAMINATION: SINGLE VIEW CHEST [...] Interpreting Staff: HUANG TAI, Radiologist Verified by lockstitch waistline joiner for HUANG TAI /HUANG [place] Aug 29, 2024 08:[address] HEAD W/O CONT: LUIS MANUEL PERDOMO [id number] -1945 M Exm Date: AUG 29, 2024@20:28 Req Phys: FELISA COLE Loc: ED/4P-12A (Req'g Loc) Img Loc: CT SCAN Service: Unknown [place] [id number] (Case [id number] COMPLETE) CT HEAD W/O CONT (CT Detailed) CPT:44430 Reason for Study: SEE CLINICAL HISTORY Clinical History: REASON FOR SEND OUT: ATTENDING PHYSICIAN NAME: New transient neurological s/s - suspected TIA HISTORY/REASON FOR EXAM: confusion Report Status: Verified Date Reported: AUG 29, 2024 Date Verified: AUG 29, 2024 Office Administrative Assistant E-Sig: Report: HISTORY confusion COMPARISON No [...] Staff: ABDIRAHMAN CROW, Staff Physician Verified by lockstitch waistline joiner for ABDIRAHMAN CROW /[facility] Pathology Reports: +/- 30 days [...] Lab: [facility] [CLIA# [id number]] [address] [place] [address] Accession [UID]: [id number] [[id number]] Received: Sep 03, 2024@14:02 Collection sample: URINE, [...] By: [facility] [CLIA# [id number]] [address] [place] [address] [facility] Sep 02, 2024 06:00 PM LR MICROBIOLOGY RE PORT: Reporting Lab: [facility] [CLIA# [id number]] [address] [place] [address] Accession [UID]: [id number] [[id number]] Received: Sep 02, 2024@18:07 Collection sample: BLD CULTURE BOTTLES Collection date: Sep 02, 2024 18:00 Site/Specimen: BLOOD Provider: FRANCK TURNER Comment on specimen: L HAND Test(s) ordered: CULTURE, BLOOD................ completed: Sep 08, 2024 * BACTERIOLOGY FINAL REPORT => Sep 08, 2024 08:25 TECH CODE: [id number] Bacteriology Remark(s): Blood culture status=NO GROWTH (unless notified otherwise) 09/03/2024 AEROBIC: NO GROWTH ANAEROBIC: NO GROWTH =--=--=--=--=--=--=--=--=--=-- =--=--=--=--=--=--=--=--=--=-- =--=--=--=--=--=-- Performing Laboratory: Bacteriology Report Performed By: [facility] [CLIA# [id number]] [address] [place] [address] MAGDY CALABRESE [facility] Aug 29, 2024 10:18 PM LR MICROBIOLOGY RE PORT: Reporting Lab: [facility] [CLIA# [id number]] [address] [place] [address] Accession [UID]: [id number] [[id number]] Received: Aug 29, 2024@22:18 Collection sample: URINE, CLEAN CATCH Collection date: Aug 29, 2024 22:18 Site/Specimen: URINE Provider: FELISA COLE Test(s) ordered: CULTURE, URINE................ completed: Aug 31, 2024 09:51 * BACTERIOLOGY FINAL REPORT => Aug 31, 2024 09:51 TECH CODE: [id number] Bacteriology Remark(s): NO GROWTH 08/30/2024 <10,000 CFU/ML. 08/31/2024 =--=--=--=--=--=--=--=--=--=-- =--=--=--=--=--=--=--=--=--=-- =--=--=--=--=--=-- Performing Laboratory: Bacteriology Report Performed By: [facility] [CLIA# [id number]] [address] [place] [address] MAGDY CALABRSEE-S[facility]
--- OUTSIDE RECORDS SUMMARY | 2024-09-07 17:01 | XMS_ITS ---
[place] DAILY HOSPITALIZATION DATA [facility] Encounter Summary Created on: September 22, 2024 LUIS MANUEL PERDOMO : 1945 Sex: Male Author Name [facility] Organization [facility] Address [address] [place] [address] Care Team Providers Care Director Database Name Role Phone YULISSA HENDERSON Primary Care [...] PLAN F Mar 24, 2014 PLAN F [id number] LUIS [address]IENT [facility] [place] BLUECARD PREFERRED PROVIDER ORGANIZAT ION (PPO) [facility] Sep 21, 2012 [id number] [phone] LUIS MANUEL PERDOMO PATIENT [employer] [facility] ([id number]) PRESCRIPT ION WL3A Sep 21, 2012 [id number] LUIS MANUEL PERDOMO PATIENT MEDICARE (WNR) MEDICARE (M) PART B Sep 21, 2012 PART B [id number] NOEMI PERDOMO PATIENT MEDICARE (WNR) MEDICARE (M) PART A Jan 22, 2011 PART A [id number] LEANNE, NOEMI PATIENT MEDICARE PART D (WNR) MEDICARE (M) PART D Mar 24, 2014 PART D [id number] LUIS MANUEL PERDOMO PATIENT Selected Encounter This section includes the information on record at [place] for the Encounter. Date/Time Encounter Type Encounter Description Reason Pro vider Source Sep 07, 2024 09:01 PM Inpatient Visit DAILY HOSPITALIZATION DATA IHE Encounter Template Text not used by [place] Plan of Treatment: Future Appointments (+ 6 months) and Future Tests (+/- 45 days) The Plan of Treatment section includes future care activities for the patient [facility] [place] [facility] This section includes future appointments and [...] AM AMBULATORY - NONE [facility] Sep 30, 2024 01:30 PM AMBULATORY - SURGERY [facility] Active, Pending, and Scheduled Orders [...] [facility] Cons Rn Disease Management's Choice [facility] Lab Results: +/- 30 days of [...] Specimen Type: CAPILLARY Comment: Test performed by: [id number] Meter #: [id number] Ordering Provider: FRANCK TURNER Report Released Date/Time: Sep 09, 2024 12:33 PM Reporting Lab: [address] [address] Performing Lab: [address] [address] GLUCOSE-HAND MONITOR 116 mg/dL H Sep 09, 2024 06:07 AM [facility] GLUCOSE-HAND MONITOR CAPILLARY Specime n Type: CAPILLARY Comment: Test performed by: [id number] Meter #: [id number] Ordering Provider: FRANCK TURNER Report Released Date/Time: Sep 09, 2024 08:17 AM Reporting Lab: [address] [address] Performing Lab: [address] [address] GLUCOSE-HAND MONITOR 112 mg/dL H Sep 08, 2024 09:13 PM [facility] GLUCOSE-HAND MONITOR CAPILLARY Specime n Type: CAPILLARY Comment: Test performed by: [id number] Meter #: [id number] Ordering Provider: FRANCK TURNER Report Released Date/Time: Sep 08, 2024 09:31 PM Reporting Lab: [address] [address] Performing Lab: [address] [address] GLUCOSE-HAND MONITOR 107 mg/dL H Sep 08, 2024 03:49 PM [facility] GLUCOSE-HAND MONITOR CAPILLARY Specime n Type: CAPILLARY Comment: AAMIR RN notified Test performed by: [id number] Meter #: [id number] Ordering Provider: FRANCK TURNER Report Released Date/Time: Sep 08, 2024 04:33 PM Reporting Lab: [address] [address] Performing Lab: [address] [address] GLUCOSE-HAND MONITOR 162 mg/dL H Sep 08, 2024 11:43 AM [facility] GLUCOSE-HAND MONITOR CAPILLARY Specime n Type: CAPILLARY Comment: AAMIR RN notified Test performed by: [id number] Meter #: [id number] Ordering Provider: FRANCK TURNER Report Released Date/Time: Sep 08, 2024 12:03 PM Reporting Lab: [address] [address] Performing Lab: [address] [address] GLUCOSE-HAND MONITOR 133 mg/dL H Sep 08, 2024 06:13 AM [facility] GLUCOSE-HAND MONITOR CAPILLARY Specime n Type: CAPILLARY Comment: Test performed by: [id number] Meter #: [id number] Ordering Provider: FRANCK TURNER Report Released Date/Time: Sep 08, 2024 06:46 AM Reporting Lab: [address] [address] Performing Lab: [address] [address] GLUCOSE-HAND MONITOR 104 mg/dL H Sep 07, 2024 07:59 PM [facility] GLUCOSE-HAND MONITOR CAPILLARY Specime n Type: CAPILLARY Comment: Test performed by: [id number] Meter #: [id number] Ordering Provider: FRANCK TURNER Report Released Date/Time: Sep 07, 2024 09:05 PM Reporting Lab: [address] [address] Performing Lab: [address] [address] GLUCOSE-HAND MONITOR 107 mg/dL H Sep 07, 2024 04:39 PM [facility] GLUCOSE-HAND MONITOR CAPILLARY Specime n Type: CAPILLARY Comment: Test performed by: [id number] Meter #: [id number] Ordering Provider: FRANCK TURNER Report Released Date/Time: Sep 07, 2024 05:09 PM Reporting Lab: [address] [address] Performing Lab: [address] [address] GLUCOSE-HAND MONITOR 105 mg/dL H Sep 07, 2024 11:41 AM [facility] GLUCOSE-HAND MONITOR CAPILLARY Specime n Type: CAPILLARY Comment: Test performed by: [id number] Meter #: [id number] Ordering Provider: FRANCK TURNER Report Released Date/Time: Sep 07, 2024 12:41 PM Reporting Lab: [address] [address] Performing Lab: [address] [address] GLUCOSE-HAND MONITOR 144 mg/dL H Sep 07, 2024 05:56 AM [facility] GLUCOSE-HAND MONITOR CAPILLARY Specime n Type: CAPILLARY Comment: Test performed by: [id number] Meter #: [id number] Ordering Provider: FRANCK TURNER Report Released Date/Time: Sep 07, 2024 06:31 AM Reporting Lab: [address] [address] Performing Lab: [address] [address] GLUCOSE-HAND MONITOR 96 mg/dL Sep 06, 2024 08:10 PM [facility] GLUCOSE-HAND MONITOR CAPILLARY Specime n Type: CAPILLARY Comment: Test performed by: [id number] Meter #: [id number] Ordering Provider: FRANCK TURNER Report Released Date/Time: Sep 06, 2024 08:52 PM Reporting Lab: [address] [address] Performing Lab: [address] [address] GLUCOSE-HAND MONITOR 124 mg/dL H Sep 06, 2024 04:27 PM [facility] GLUCOSE-HAND MONITOR CAPILLARY Specime n Type: CAPILLARY Comment: Test performed by: [id number] Meter #: [id number] Ordering Provider: FRANCK TURNER Report Released Date/Time: Sep 06, 2024 05:15 PM Reporting Lab: [address] [address] Performing Lab: [address] [address] GLUCOSE-HAND MONITOR 107 mg/dL H Sep 06, 2024 12:12 PM [facility] GLUCOSE-HAND MONITOR CAPILLARY Specime n Type: CAPILLARY Comment: Test performed by: [id number] Meter #: [id number] Ordering Provider: FRANCK TURNER Report Released Date/Time: Sep 06, 2024 12:29 PM Reporting Lab: [address] [address] Performing Lab: [address] [address] GLUCOSE-HAND MONITOR 181 mg/dL H -Sep 06, 2024 06:13 AM [facility] GLUCOSE-HAND MONITOR CAPILLARY Specime n Type: CAPILLARY Comment: Test performed by: [id number] Meter #: [id number] Ordering Provider: FRANCK TURNER Report Released Date/Time: Sep 06, 2024 06:36 AM Reporting Lab: [address] [address] Performing Lab: [address] [address] GLUCOSE-HAND MONITOR 102 mg/dL H Sep 05, 2024 08:47 PM [facility] GLUCOSE-HAND MONITOR CAPILLARY Specime n Type: CAPILLARY Comment: Test performed by: [id number] Meter #: [id number] Ordering Provider: FRANCK TURNER Report Released Date/Time: Sep 06, 2024 02:13 AM Reporting Lab: [address] [address] Performing Lab: [address] [address] GLUCOSE-HAND MONITOR 103 mg/dL H Sep 05, 2024 04:40 PM [facility] GLUCOSE-HAND MONITOR CAPILLARY Specime n Type: CAPILLARY Comment: AAMIR RN notified Test performed by: [id number] Meter #: [id number] Ordering Provider: FRANCK TURNER Report Released Date/Time: Sep 05, 2024 05:11 PM Reporting Lab: [address] [address] Performing Lab: [address] [address] GLUCOSE-HAND MONITOR 113 mg/dL H Sep 05, 2024 12:06 PM [facility] GLUCOSE-HAND MONITOR CAPILLARY Specime n Type: CAPILLARY Comment: Test performed by: [id number] Meter #: [id number] Ordering Provider: FRANCK TURNER Report Released Date/Time: Sep 05, 2024 12:23 PM Reporting Lab: [address] [address] Performing Lab: [address] [address] GLUCOSE-HAND MONITOR 115 mg/dL H Sep 05, 2024 06:26 AM [facility] GLUCOSE-HAND MONITOR CAPILLARY Specime n Type: CAPILLARY Comment: AAMIR Correction Dose Test performed by: [id number] Meter #: [id number] Ordering Provider: FRANCK TURNER Report Released Date/Time: Sep 05, 2024 06:43 AM Reporting Lab: [address] [address] Performing Lab: [address] [address] GLUCOSE-HAND MONITOR 111 mg/dL H Sep 04, 2024 08:59 PM [facility] GLUCOSE-HAND MONITOR CAPILLARY Specime n Type: CAPILLARY Comment: AAMIR RN notified Test performed by: [id number] Meter #: [id number] Ordering Provider: FRANCK TURNER Report Released Date/Time: Sep 04, 2024 09:36 PM Reporting Lab: [address] [address] Performing Lab: [address] [address] GLUCOSE-HAND MONITOR 123 mg/dL H Sep 04, 2024 04:41 PM [facility] GLUCOSE-HAND MONITOR CAPILLARY Specime n Type: CAPILLARY Comment: AAMIR RN notified Test performed by: [id number] Meter #: [id number] Ordering Provider: FRANCK TURNER Report Released Date/Time: Sep 04, 2024 05:03 PM Reporting Lab: [address] [address] Performing Lab: [address] [address] GLUCOSE-HAND MONITOR 118 mg/dL H Sep 04, 2024 12:36 PM [facility] GLUCOSE-HAND MONITOR CAPILLARY Specime n Type: CAPILLARY Comment: AAMIR RN notified Test performed by: [id number] Meter #: [id number] Ordering Provider: FRANCK TURNER Report Released Date/Time: Sep 04, 2024 12:53 PM Reporting Lab: [address] [address] Performing Lab: [place] [address] GLUCOSE-HAND MONITOR 129 mg/dL H 71-99 Sep 04, 2024 12:03 PM [facility] RESPIRATORY VIRUS PANEL (BIOFIRE) NASOPHARYN X Specimen Type: NASOPHARYNX Comment: ~For Test: RESPIRATORY VIRUS PANEL (BIOFIRE) ~ORDER READ BACK TO: FRANCK TURNER 09/04/24@11:30 Ordering Provider: FRANCK TURNER Report Released Date/Time: Sep 04, 2024 11:33 AM Reporting Lab: [place] [phone] Performing Lab: [place] [phone] ADENOVIRUS (BIOFIRE) Not Detected -Not D etected [...] -Not Detected Sep 04, 2024 06:55 AM [facility] MAGNESIUM PLASMA Specimen Type: PLASM [...] Reporting Lab: [facility] [address] [address] Performing Lab: [place] [id number] [facility] [address] MAGNESIUM 1.8 mg/dL 1.6-2.6 Sep 04, 2024 06:55 AM [facility] PANEL 1 PLASMA Specimen Type: [...] Sep 03, 2024 11:10 AM Reporting Lab: [address] [address] Performing Lab: [address] CREATININE 0.75 mg/dL 0.72-1.25 UREA NITROGEN 13 mg/dL 9-25 GLUCOSE 105 mg/dL H 74-100 SODIUM 128 mmol/L L 136-145 POTASSIUM 3.9 mmol/L 3.5-5.1 CHLORIDE 99 mmol/L 98-107 CO2 21 mmol/L L 22-29 CALCIUM 8.0 mg/dL L 8.4-10.2 ANION GAP 8 meq/L 3-19 eGFR (CKD-EPI) >90 Sep 04, 2024 06:02 AM [facility] GLUCOSE-HAND MONITOR CAPILLARY Specime n Type: CAPILLARY Comment: Test performed by: [id number] Meter #: [id number] Ordering Provider: FRANCK TURNER Report Released Date/Time: Sep 04, 2024 06:28 AM Reporting Lab: [address] Performing Lab: [address] GLUCOSE-HAND MONITOR 114 mg/dL H 71-99 Sep 03, 2024 05:19 PM [facility] GLUCOSE-HAND MONITOR CAPILLARY Specime n Type: CAPILLARY Comment: Test performed by: [id number] Meter #: [id number] Ordering Provider: FRANCK TURNER Report Released Date/Time: Sep 03, 2024 05:37 PM Reporting Lab: [address] Performing Lab: [address] [address] GLUCOSE-HAND MONITOR 124 mg/dL H 71-99 Sep 03, 2024 04:41 PM [facility] GLUCOSE-HAND MONITOR CAPILLARY Specime n Type: CAPILLARY Comment: Test performed by: [id number] Meter #: [id number] Ordering Provider: FRANCK TURNER Report Released Date/Time: Sep 03, 2024 06:09 PM Reporting Lab: [address] [address] Performing Lab: [address] [address] GLUCOSE-HAND MONITOR 112 mg/dL H 71-99 Sep 03, 2024 01:35 PM [facility] CREATININE URINE Specimen Type: URINE Comment: ~Altered mental status with no identifiable cause Ordering Provider: FRANCK TURNER Report Released Date/Time: Sep 02, 2024 04:44 PM Reporting Lab: [address] [address] Performing Lab: [place] [phone] CREATININE 150.9 mg/dL Sep 03, 2024 01:35 PM [facility] URINE LYTES URINE Specimen Type : URINE Comment: ~Altered mental status with no identifiable cause Ordering Provider: FRANCK TURNER Report Released Date/Time: Sep 02, 2024 04:44 PM Reporting Lab: [address] [address] Performing Lab: [address] [address] SODIUM 130 mmol/L POTASSIUM 47.6 mmol/L CHLORIDE 137 mmol/L Sep 03, 2024 01:35 PM [facility] URINALYSIS WITH REFLEX TO CULTURE URINE Specimen Type: URINE Comment: ~Altered mental status with no identifiable cause Ordering Provider: FRANCK TURNER Report Released Date/Time: Sep 02, 2024 04:44 PM Reporting Lab: [address] [address] Performing Lab: [address] [address] URINE COLOR Yellow Colorless-Yellow APPEARANCE CLOUDY H [...] 0-28 Sep 03, 2024 01:35 PM [facility] UREA NITROGEN URINE Specimen Type : URINE Comment: ~Altered mental status with no identifiable cause Ordering Provider: FRANCK TURNER Report Released Date/Time: Sep 02, 2024 04:44 PM Reporting Lab: [address] [address] Performing Lab: [address] [address] UREA NITROGEN 320 mg/dL Sep 03, 2024 01:35 PM [facility] OSMOLALITY URINE Specimen Type: URINE Comment: ~Altered mental status with no identifiable cause Ordering Provider: FRANCK TURNER Report Released Date/Time: Sep 02, 2024 04:44 PM Reporting Lab: [address] [address] Performing Lab: [place] [phone] OSMOLALITY 522 mosm/kg 38-1400 Sep 03, 2024 11:58 AM [facility] GLUCOSE-HAND MONITOR CAPILLARY Specime n Type: CAPILLARY Comment: AAMIR RN notified Test performed by: [id number] Meter #: [id number] Ordering Provider: FRANCK TURNER Report Released Date/Time: Sep 03, 2024 12:15 PM Reporting Lab: [address] [address] Performing Lab: [address] [address] GLUCOSE-HAND MONITOR 135 mg/dL H -Sep 03, 2024 07:09 AM [facility] GLUCOSE-HAND MONITOR CAPILLARY Specime n Type: CAPILLARY Comment: Test performed by: [id number] Meter #: [id number] Ordering Provider: FRANCK TURNER Report Released Date/Time: Sep 03, 2024 07:26 AM Reporting Lab: [address] [address] Performing Lab: [address] [address] GLUCOSE-HAND MONITOR 120 mg/dL H -Sep 03, 2024 07:05 AM [facility] CBC/PLT BLOOD Specimen Type: BLOOD No comment entered. Ordering Provider: FRANCK TURNER Report Released Date/Time: Sep 02, 2024 04:29 PM Reporting Lab: [address] [address] Performing Lab: [address] [address] WBC 6.9 10*3/uL 5.0-10.0 RBC 3.48 10*6/uL L 4.6-6.2 HGB 9.5 g/dL L 14.0-18.0 HCT 29.1 L 42.0-52.0 MCV 83.6 fL 80.0-94.0 MCH 27.3 pg 27.0-31.0 MCHC 32.6 g/dL 32.0-36.0 PLT 258 10*3/uL 150-450 MPV 10.3 fL 9.0-13.1 RDW 14.8 11.0-16.0 NRBC 0.0 0.0-0.0 Sep 03, 2024 07:05 AM [facility] MAGNESIUM PLASMA Specimen Type: PLASM [...] 02, 2024 04:29 PM Reporting Lab: [address] [address] Performing Lab: [address] [address] MAGNESIUM 1.7 mg/dL 1.6-2.6 Sep 03, 2024 07:05 AM [facility] PANEL 1 PLASMA Specimen Type: [...] 02, 2024 04:29 PM Reporting Lab: [address] [address] Performing Lab: [address] [address] CREATININE 0.82 mg/dL 0.72-1.25 UREA NITROGEN 12 mg/dL 9-25 GLUCOSE 109 mg/dL H 74-100 SODIUM 129 mmol/L L 136-145 POTASSIUM 4.2 mmol/L 3.5-5.1 CHLORIDE 99 mmol/L 98-107 CO2 21 mmol/L L 22-29 CALCIUM 8.1 mg/dL L 8.4-10.2 ANION GAP 9 meq/L 3-19 eGFR (CKD-EPI) 90 Sep 03, 2024 07:05 AM [facility] GLYCOHEMOGLOBIN BLOOD Specimen Type: BLOOD Comment: Prediabetes: 5.7%-6.4% Diabetes: >= 6.5% [facility] guidelines for A1c interpretation: Glycemic control [...] 8.73 and 9.27. Ref: https://ngsp.org/CAPdata.asp. The in-house Go[employer]-Cloud[employer] D-100 analyzer has a historical CV <= 2%. Contact the laboratory for further performance characteristics of this assay. Ordering Provider: FRANCK TURNER Report Released Date/Time: Sep 02, 2024 04:29 PM Reporting Lab: [address] [address] Performing Lab: [place] [phone] GLYCOHEMOGLOBIN 5.6 4.4-5.6 Sep 03, 2024 07:05 AM [facility] OSMOLALITY SERUM Specimen Type: SERUM No comment entered. Ordering Provider: FRANCK TURNER Report Released Date/Time: Sep 02, 2024 04:44 PM Reporting Lab: [address] [address] Performing Lab: [address] [address] OSMOLALITY 271 mosm/kg L 280-300 Sep 02, 2024 08:15 PM [facility] GLUCOSE-HAND MONITOR CAPILLARY Specime n Type: CAPILLARY Comment: AAMIR DEXTER notified Test performed by: [id number] Meter #: [id number] Ordering Provider: FRANCK TURNER Report Released Date/Time: Sep 02, 2024 08:57 PM Reporting Lab: [address] [address] Performing Lab: [address] [address] GLUCOSE-HAND MONITOR 126 mg/dL H 71-99 Sep 02, 2024 06:10 PM [facility] MRSA SURVL NARES DNA NARES [...] 02, 2024 05:12 PM Reporting Lab: [address] [address] Performing Lab: [address] [address] MRSA SURVL NARES DNA Negative Negative Sep 02, 2024 05:36 PM [facility] GLUCOSE-HAND MONITOR CAPILLARY Specime n Type: CAPILLARY Comment: Test performed by: [id number] Meter #: [id number] Ordering Provider: FRANCK TURNER Report Released Date/Time: Sep 02, 2024 05:53 PM Reporting Lab: [address] [address] Performing Lab: [address] [address] GLUCOSE-HAND MONITOR 127 mg/dL H 71-99 Aug 29, 2024 10:04 PM [facility] URINALYSIS WITH REFLEX TO CULTURE URINE Specimen Type: URINE Comment: ~For Test: URINALYSIS WITH REFLEX TO CULTURE ~REORDER Ordering Provider: FELISA COLE Report Released Date/Time: Aug 29, 2024 09:36 PM Reporting Lab: [address] [address] Performing Lab: [address] [address] URINE COLOR Yellow Colorless-Yellow APPEARANCE Clear Clear [...] /[LPF] 0-28 Aug 29, 2024 08:32 PM [facility]IGH SENSITIVITY TROPONIN I PLASMA [...] 29, 2024 07:55 PM Reporting Lab: [address] [address] Performing Lab: [address] [address] HIGH SENSITIVITY TROPONIN I 7 4-35 Aug 29, 2024 08:32 PM [facility] CBC/PLT BLOOD Specimen Type: BLOOD No comment entered. Ordering Provider: FELISA COLE Report Released Date/Time: Aug 29, 2024 07:55 PM Reporting Lab: [address] [address] Performing Lab: [address] [address] WBC 11.2 10*3/uL H 5.0-10.0 RBC 3.97 10*6/uL L 4.6-6.2 HGB 10.9 g/dL L 14.0-18.0 HCT 33.5 L 42.0-52.0 MCV 84.4 fL 80.0-94.0 MCH 27.5 pg 27.0-31.0 MCHC 32.5 g/dL 32.0-36.0 PLT 230 10*3/uL 150-450 MPV 10.2 fL 9.0-13.1 RDW 14.6 11.0-16.0 NRBC 0.0 0.0-0.0 Aug 29, 2024 08:32 PM [facility] PANEL 5 PLASMA Specimen Type: [...] 29, 2024 07:55 PM Reporting Lab: [address] [address] Performing Lab: [address] [address] CREATININE 0.85 mg/dL 0.72-1.25 UREA NITROGEN 15 [...] 07, 2024 09:02 PM 0 [place] [facility] Sep 07, 2024 08:01 PM 97.8 F 66 /min 148/76 mm[Hg] 16 /min 95 % 0 [facility] Sep 07, 2024 04:38 PM 97.0 F 61 /min 122/69 mm[Hg] 20 /min 94 % 0 [place] [facility] Sep 07, 2024 02:23 PM 0 [place] [facility] Sep 07, 2024 12:08 PM 62 /min 118/68 mm[Hg] [place] Advance Directives: All historical and [...] 08, 2024 ADVANCE DIRECTIVE DISCUSSION [facility] Radiology Reports: +/- 30 days of the [...] BRAIN W & W/O: LUIS MANUEL PERDOMO [id number] -1945 M Exm Date: SEP 06, 2024@13:40 Req Phys: FRANCK TURNER Loc: 5-MED/TEL/09-06-2024@19:09 Img Loc: [facility] Service: [place] [address] (Case [id number] COMPLETE) MRI BRAIN W & W/O (MRI Detailed) CPT:80082 Contrast Media : Gadolinium Reason for Study: SEE CLINICAL HISTORY Pharmaceutical: GADOTERIDOL 279.3MG/ML 20ML INJ, 19ml Clinical History: MRI Screening (Required): IMPLANTED DEVICE DOCUMENTATION IMPLANTED DEVICE DOCUMENTATION NOT FOUND Does the [place] have any Cardiac Implants? None Does the have any implanted stimulators? None Does the [place] have cochlear implants? No Does the have [...] 06, 2024 Date Verified: SEP 06, 2024 Physician Coder E-Sig: Report: MRI brain without and with [...] Staff: ARCENIO LEYVA, Staff Radiologist Verified by campaign management senior manager for ARCENIO LEYVA /ARCENIO [facility] Sep 06, 2024 01:40 PM MRI C SPINE W & W/ O CONTRAST(FURTHER SEQUENCES): LUIS MANUEL PERDOMO [id number] -1945 M Exm Date: SEP 06, 2024@13:40 Req Phys: FRANCK TURNERISIAHFLOSav Pat Loc: 5-MED/TEL/09-07-2024@06:42 Img Loc: [facility] Service: [place] [address] (Case [id number] COMPLETE) MRI C SPINE W & W/O CONTRAST(FURT(MRI Detailed) CPT:51345 Contrast Media : Gadolinium Reason for Study: SEE CLINICAL HISTORY Pharmaceutical: GADOTERIDOL 279.3MG/ML 20ML INJ, 19ml Clinical History: STATUS OF PLAIN FILMS:Not performed (Provide justification for MR W/O prior plain films below.) MRI for MS MRI Screening (Required): IMPLANTED DEVICE DOCUMENTATION IMPLANTED DEVICE DOCUMENTATION NOT FOUND Does the [place] have any Cardiac Implants? None Does the [place] have any implanted stimulators? None Does the [place] have cochlear implants? No Does the have Cerebral aneurysm clip(s)? I don't know Does the [place] have any shrapnel? I don't know If [...] 07, 2024 Date Verified: SEP 07, 2024 Physician Coder E-Sig: Report: EXAMINATION: MRI OF THE CERVICAL [...] Interpreting Staff: HUANG TAI, Radiologist Verified by campaign management senior manager for HUANG TAI /HUANG WHEATLEY-[facility] Sep 03, 2024 10:45 AM CHEST SINGLE(1) EW: LUIS MANUEL PERDOMO [id number] -1945 M Exm Date: SEP 03, 2024@10:45 Req Phys: FRANCK TURNER Pat Loc: 5-MED/TEL/09-03-2024@10:56 Img Loc: [facility] RADIOLOGY Service: [place] [address] (Case [id number] COMPLETE)CHEST SINGLE(1) VIEW (RAD Detailed) CPT:71369 Proc Modifiers : PORTABLE EXAM Reason for Study: Eval volume status Clinical History: Report Status: Verified Date Reported: SEP 03, 2024 Date Verified: SEP 03, 2024 Physician Coder E-Sig: Report: EXAMINATION: SINGLE VIEW CHEST CLINICAL [...] Interpreting Staff: HUANG TAI, Radiologist Verified by campaign management senior manager for HUANG TAI /HUANG WHEATLEY-[facility] Aug 29, 2024 08:[address] HEAD W/O CONT: LUIS MANUEL PERDOMO [id number] -1945 M Exm Date: AUG 29, 2024@20:28 Req Phys: FELISA COLE Loc: ED/4P-12A (Req'g Loc) Img Loc: CT SCAN Service: Unknown [place] [id number] (Case [id number] COMPLETE) CT HEAD W/O CONT (CT Detailed) CPT:47723 Reason for Study: SEE CLINICAL HISTORY Clinical History: REASON FOR SEND OUT: ATTENDING PHYSICIAN NAME: New transient neurological s/s - suspected TIA HISTORY/REASON FOR EXAM: confusion Report Status: Verified Date Reported: AUG 29, 2024 Date Verified: AUG 29, 2024 Physician Coder E-Sig: Report: HISTORY confusion COMPARISON No prior [...] Staff: ABDIRAHMAN CROW, Staff Physician Verified by campaign management senior manager for ABDIRAHMAN CROW /[facility] Pathology Reports: +/- 30 days [...] RE PORT: Reporting Lab: [facility] [CLIA# [id number]] [address] [place] [id number] Accession [UID]: [id number] [[id number]] Received: Sep 03, 2024@14:02 Collection sample: URINE, [...] Bacteriology Report Performed By: [facility] [CLIA# [id number]] [address] [place] [id number] [facility] Sep 02, 2024 06:00 PM LR MICROBIOLOGY RE PORT: Reporting Lab: [facility] [CLIA# [id number]] [address] [place] [address] Accession [UID]: [id number] [[id number]] Received: Sep 02, 2024@18:07 Collection sample: BLD CULTURE BOTTLES Collection date: Sep 02, 2024 18:00 Site/Specimen: BLOOD Provider: FRANCK TURNER Comment on specimen: L HAND Test(s) ordered: CULTURE, BLOOD................ completed: Sep 08, 2024 * BACTERIOLOGY FINAL REPORT => Sep 08, 2024 08:25 TECH CODE: [id number] Bacteriology Remark(s): Blood culture status=NO GROWTH (unless notified otherwise) 09/03/2024 AEROBIC: NO GROWTH ANAEROBIC: NO GROWTH =--=--=--=--=--=--=--=--=--=-- =--=--=--=--=--=--=--=--=--=-- =--=--=--=--=--=-- Performing Laboratory: Bacteriology Report Performed By: [facility] [CLIA# [id number]] [address] [place] [address] [facility] Aug 29, 2024 10:18 PM LR MICROBIOLOGY RE PORT: Reporting Lab: [facility] [CLIA# [id number]] [address] [place] [address] Accession [UID]: [id number] [[id number]] Received: Aug 29, 2024@22:18 Collection sample: URINE, CLEAN CATCH Collection date: Aug 29, 2024 22:18 Site/Specimen: URINE Provider: FELISA COLE Test(s) ordered: CULTURE, URINE................ completed: Aug 31, 2024 09:51 * BACTERIOLOGY FINAL REPORT => Aug 31, 2024 09:51 TECH CODE: [id number] Bacteriology Remark(s): NO GROWTH 08/30/2024 <10,000 CFU/ML. 08/31/2024 =--=--=--=--=--=--=--=--=--=-- =--=--=--=--=--=--=--=--=--=-- =--=--=--=--=--=-- Performing Laboratory: Bacteriology Report Performed By: [facility] [CLIA# [id number]] [address] [place] [address] MAGDY CALABRESE-[facility]
--- OUTSIDE RECORDS SUMMARY | 2024-09-07 17:02 | XMS_ITS ---
[facility] DAILY HOSPITALIZATION DATA [facility] Encounter Summary Created on: September 22, 2024 LUIS MANUEL PERDOMO : 1945 Sex: Male Author Name [facility] Organization [facility] Address [address] [place] [address] Care Team Providers Care Re Etcher Name Role Phone YULISSA HENDERSON Primary Care [...] PLAN F Mar 24, 2014 PLAN F [id number] [phone] LUIS MANUEL PERDOMO PATIENT [facility] [place] BLUECARD PREFERRED PROVIDER ORGANIZAT ION (PPO) [facility] Sep 21, 2012 [id number] [phone] LUIS MANUEL PERDOMO PATIENT [employer] ([id number]) PRESCRIPT ION WL3A Sep 21, 2012 [id number] LUIS MANUEL PERDOMO PATIENT MEDICARE (WNR) MEDICARE (M) PART B Sep 21, 2012 PART B [id number] [phone] NOEMI PERDOMO PATIENT MEDICARE (WNR) MEDICARE (M) PART A Jan 22, 2011 PART A [id number] [phone] LEANNE, NOEMI PATIENT MEDICARE PART D (WNR) MEDICARE (M) PART D Mar 24, 2014 PART D [id number] LUIS MANUEL PERDOMO PATIENT Selected Encounter This section includes the information on record at [facility] for the Encounter. Date/Time Encounter Type Encounter Description Reason Pro vider Source Sep 07, 2024 09:02 PM Inpatient Visit DAILY HOSPITALIZATION DATA [facility] Encounter Template Text not used by [place] Plan of Treatment: Future Appointments (+ 6 months) and Future Tests (+/- 45 days) The Plan of Treatment section includes future care activities for the patient from [facility]. This section includes [...] 13, 2024 08:00 AM AMBULATORY - NONE [facility] Sep 30, 2024 01:30 PM AMBULATORY - SURGERY [place] [facility] Active, Pending, and Scheduled Orders This section includes a listing of several types of active, pending, and scheduled orders, including clinic medications orders, diagnostic test orders, procedure orders and consult orders; where the start date of the order is 45 days before the date of the Encounter or 45 days after the date of theEncounter. The data comes from all [facility] facilities. Test Date/Time Test Type Test Details Facility Name Sep 13, 2024 01:33 PM Consult Order [facility] CARE Cons Aircraft Structure Mechanic's Choice [facility] Lab Results: +/- 30 days of the [...] Type Comment Sep 09, 2024 12:16 PM [facility] GLUCOSE-HAND MONITOR CAPILLARY Specimen Type: CAPILLARY Comment: Test performed by: [id number] Meter #: [id number] Ordering Provider: FRANCK TURNER Report Released Date/Time: Sep 09, 2024 12:33 PM Reporting Lab: [address] [address] Performing Lab: [address] [address] GLUCOSE-HAND MONITOR 116 mg/dL H Sep 09, 2024 06:07 AM [facility] GLUCOSE-HAND MONITOR CAPILLARY Specime n Type: CAPILLARY Comment: Test performed by: [id number] Meter #: [id number] Ordering Provider: FRANCK TURNER Report Released Date/Time: Sep 09, 2024 08:17 AM Reporting Lab: [address] [address] Performing Lab: [address] [address] GLUCOSE-HAND MONITOR 112 mg/dL H Sep 08, 2024 09:13 PM [facility] GLUCOSE-HAND MONITOR CAPILLARY Specime n Type: CAPILLARY Comment: Test performed by: [id number] Meter #: [id number] Ordering Provider: FRANCK TURNER Report Released Date/Time: Sep 08, 2024 09:31 PM Reporting Lab: [address] [address] Performing Lab: [address] [address] GLUCOSE-HAND MONITOR 107 mg/dL H Sep 08, 2024 03:49 PM [facility] GLUCOSE-HAND MONITOR CAPILLARY Specime n Type: CAPILLARY Comment: AAMIR RN notified Test performed by: [id number] Meter #: [id number] Ordering Provider: FRANCK TURNER Report Released Date/Time: Sep 08, 2024 04:33 PM Reporting Lab: [address] [address] Performing Lab: [address] [address] GLUCOSE-HAND MONITOR 162 mg/dL H Sep 08, 2024 11:43 AM [facility] GLUCOSE-HAND MONITOR CAPILLARY Specime n Type: CAPILLARY Comment: AAMIR RN notified Test performed by: [id number] Meter #: [id number] Ordering Provider: FRANCK TURNER Report Released Date/Time: Sep 08, 2024 12:03 PM Reporting Lab: [address] [address] Performing Lab: [address] [address] GLUCOSE-HAND MONITOR 133 mg/dL H Sep 08, 2024 06:13 AM [facility] GLUCOSE-HAND MONITOR CAPILLARY Specime n Type: CAPILLARY Comment: Test performed by: [id number] Meter #: [id number] Ordering Provider: FRANCK TURNER Report Released Date/Time: Sep 08, 2024 06:46 AM Reporting Lab: [address] [address] Performing Lab: [address] [address] GLUCOSE-HAND MONITOR 104 mg/dL H Sep 07, 2024 07:59 PM [facility] GLUCOSE-HAND MONITOR CAPILLARY Specime n Type: CAPILLARY Comment: Test performed by: [id number] Meter #: [id number] Ordering Provider: FRANCK TURNER Report Released Date/Time: Sep 07, 2024 09:05 PM Reporting Lab: [address] [address] Performing Lab: [address] [address] GLUCOSE-HAND MONITOR 107 mg/dL H Sep 07, 2024 04:39 PM [facility] GLUCOSE-HAND MONITOR CAPILLARY Specime n Type: CAPILLARY Comment: Test performed by: [id number] Meter #: [id number] Ordering Provider: FRANCK TURNER Report Released Date/Time: Sep 07, 2024 05:09 PM Reporting Lab: [address] [address] Performing Lab: [address] [address] GLUCOSE-HAND MONITOR 105 mg/dL H Sep 07, 2024 11:41 AM [facility] GLUCOSE-HAND MONITOR CAPILLARY Specime n Type: CAPILLARY Comment: Test performed by: [id number] Meter #: [id number] Ordering Provider: FRANCK TURNER Report Released Date/Time: Sep 07, 2024 12:41 PM Reporting Lab: [address] [address] Performing Lab: [address] [address] GLUCOSE-HAND MONITOR 144 mg/dL H Sep 07, 2024 05:56 AM [place] GLUCOSE-HAND MONITOR CAPILLARY Specime n Type: CAPILLARY Comment: Test performed by: [id number] Meter #: [id number] Ordering Provider: FRANCK TURNER Report Released Date/Time: Sep 07, 2024 06:31 AM Reporting Lab: [address] [address] Performing Lab: [address] [address] GLUCOSE-HAND MONITOR 96 mg/dL Sep 06, 2024 08:10 PM [facility] GLUCOSE-HAND MONITOR CAPILLARY Specime n Type: CAPILLARY Comment: Test performed by: [id number] Meter #: [id number] Ordering Provider: FRANCK TURNER Report Released Date/Time: Sep 06, 2024 08:52 PM Reporting Lab: [address] [address] Performing Lab: [address] [address] GLUCOSE-HAND MONITOR 124 mg/dL H Sep 06, 2024 04:27 PM [facility] GLUCOSE-HAND MONITOR CAPILLARY Specime n Type: CAPILLARY Comment: Test performed by: [id number] Meter #: [id number] Ordering Provider: FRANCK TURNER Report Released Date/Time: Sep 06, 2024 05:15 PM Reporting Lab: [address] [address] Performing Lab: [address] [address] GLUCOSE-HAND MONITOR 107 mg/dL H Sep 06, 2024 12:12 PM [facility] GLUCOSE-HAND MONITOR CAPILLARY Specime n Type: CAPILLARY Comment: Test performed by: [id number] Meter #: [id number] Ordering Provider: FRANCK TURNER Report Released Date/Time: Sep 06, 2024 12:29 PM Reporting Lab: [address] [address] Performing Lab: [address] [address] GLUCOSE-HAND MONITOR 181 mg/dL H -Sep 06, 2024 06:13 AM [facility] GLUCOSE-HAND MONITOR CAPILLARY Specime n Type: CAPILLARY Comment: Test performed by: [id number] Meter #: [id number] Ordering Provider: FRANCK TURNER Report Released Date/Time: Sep 06, 2024 06:36 AM Reporting Lab: [address] [address] Performing Lab: [address] [address] GLUCOSE-HAND MONITOR 102 mg/dL H Sep 05, 2024 08:47 PM [facility] GLUCOSE-HAND MONITOR CAPILLARY Specime n Type: CAPILLARY Comment: Test performed by: [id number] Meter #: [id number] Ordering Provider: FRANCK TURNER Report Released Date/Time: Sep 06, 2024 02:13 AM Reporting Lab: [address] [address] Performing Lab: [address] [address] GLUCOSE-HAND MONITOR 103 mg/dL H Sep 05, 2024 04:40 PM [facility] GLUCOSE-HAND MONITOR CAPILLARY Specime n Type: CAPILLARY Comment: AAMIR RN notified Test performed by: [id number] Meter #: [id number] Ordering Provider: FRANCK TURNER Report Released Date/Time: Sep 05, 2024 05:11 PM Reporting Lab: [address] [address] Performing Lab: [address] [address] GLUCOSE-HAND MONITOR 113 mg/dL H Sep 05, 2024 12:06 PM [facility] GLUCOSE-HAND MONITOR CAPILLARY Specime n Type: CAPILLARY Comment: Test performed by: [id number] Meter #: [id number] Ordering Provider: FRANCK TURNER Report Released Date/Time: Sep 05, 2024 12:23 PM Reporting Lab: [address] [address] Performing Lab: [address] [address] GLUCOSE-HAND MONITOR 115 mg/dL H Sep 05, 2024 06:26 AM [facility] GLUCOSE-HAND MONITOR CAPILLARY Specime n Type: CAPILLARY Comment: AAMIR Correction Dose Test performed by: [id number] Meter #: [id number] Ordering Provider: FRANCK TURNER Report Released Date/Time: Sep 05, 2024 06:43 AM Reporting Lab: [address] [address] Performing Lab: [address] [address] GLUCOSE-HAND MONITOR 111 mg/dL H Sep 04, 2024 08:59 PM [facility] GLUCOSE-HAND MONITOR CAPILLARY Specime n Type: CAPILLARY Comment: AAMIR RN notified Test performed by: [id number] Meter #: [id number] Ordering Provider: FRANCK TURNER Report Released Date/Time: Sep 04, 2024 09:36 PM Reporting Lab: [address] [address] Performing Lab: [address] [address] GLUCOSE-HAND MONITOR 123 mg/dL H Sep 04, 2024 04:41 PM [place] GLUCOSE-HAND MONITOR CAPILLARY Specime n Type: CAPILLARY Comment: AAMIR RN notified Test performed by: [id number] Meter #: [id number] Ordering Provider: FRANCK TURNER Report Released Date/Time: Sep 04, 2024 05:03 PM Reporting Lab: [address] [address] Performing Lab: [address] [address] GLUCOSE-HAND MONITOR 118 mg/dL H Sep 04, 2024 12:36 PM [facility] GLUCOSE-HAND MONITOR CAPILLARY Specime n Type: CAPILLARY Comment: AAMIR RN notified Test performed by: [id number] Meter #: [id number] Ordering Provider: FRANCK TURNER Report Released Date/Time: Sep 04, 2024 12:53 PM Reporting Lab: [address] [address] Performing Lab: [place] [address] GLUCOSE-HAND MONITOR 129 mg/dL H 71-99 Sep 04, 2024 12:03 PM [facility] RESPIRATORY VIRUS PANEL (BIOFIRE) NASOPHARYN X Specimen Type: NASOPHARYNX Comment: ~For Test: RESPIRATORY VIRUS PANEL (BIOFIRE) ~ORDER READ BACK TO: FRANCK TURNER 09/04/24@11:30 Ordering Provider: FRANCK TURNER Report Released Date/Time: Sep 04, 2024 11:33 AM Reporting Lab: [place] [phone] Performing Lab: [place] [phone] ADENOVIRUS (BIOFIRE) Not Detected -Not D etected [...] -Not Detected Sep 04, 2024 06:55 AM [facility] MAGNESIUM PLASMA Specimen Type: PLASM A Comment: [...] 03, 2024 11:10 AM Reporting Lab: [facility] [address] [address] Performing Lab: [place] [address] [address] MAGNESIUM 1.8 mg/dL 1.6-2.6 Sep 04, 2024 06:55 AM [facility] PANEL 1 PLASMA Specimen Type: PLASM A [...] Sep 03, 2024 11:10 AM Reporting Lab: [address] [address] Performing Lab: [address] CREATININE 0.75 mg/dL 0.72-1.25 UREA NITROGEN 13 mg/dL 9-25 GLUCOSE 105 mg/dL H 74-100 SODIUM 128 mmol/L L 136-145 POTASSIUM 3.9 mmol/L 3.5-5.1 CHLORIDE 99 mmol/L 98-107 CO2 21 mmol/L L 22-29 CALCIUM 8.0 mg/dL L 8.4-10.2 ANION GAP 8 meq/L 3-19 eGFR (CKD-EPI) >90 Sep 04, 2024 06:02 AM [place] GLUCOSE-HAND MONITOR CAPILLARY Specime n Type: CAPILLARY Comment: Test performed by: [id number] Meter #: [id number] Ordering Provider: FRANCK TURNER Report Released Date/Time: Sep 04, 2024 06:28 AM Reporting Lab: [address] Performing Lab: [address] GLUCOSE-HAND MONITOR 114 mg/dL H 71-99 Sep 03, 2024 05:19 PM [place] GLUCOSE-HAND MONITOR CAPILLARY Specime n Type: CAPILLARY Comment: Test performed by: [id number] Meter #: [id number] Ordering Provider: FRANCK TURNER Report Released Date/Time: Sep 03, 2024 05:37 PM Reporting Lab: [address] Performing Lab: [address] [address] GLUCOSE-HAND MONITOR 124 mg/dL H 71-99 Sep 03, 2024 04:41 PM [place] GLUCOSE-HAND MONITOR CAPILLARY Specime n Type: CAPILLARY Comment: Test performed by: [id number] Meter #: [id number] Ordering Provider: FRANCK TURNER Report Released Date/Time: Sep 03, 2024 06:09 PM Reporting Lab: [address] [address] Performing Lab: [address] [address] GLUCOSE-HAND MONITOR 112 mg/dL H 71-99 Sep 03, 2024 01:35 PM [facility] URINE LYTES URINE Specimen Type : URINE Comment: ~Altered mental status with no identifiable cause Ordering Provider: FRANCK TURNER Report Released Date/Time: Sep 02, 2024 04:44 PM Reporting Lab: [address] [address] Performing Lab: [address] [address] SODIUM 130 mmol/L POTASSIUM 47.6 mmol/L CHLORIDE 137 mmol/L Sep 03, 2024 01:35 PM [facility] CREATININE URINE Specimen Type: URINE Comment: ~Altered mental status with no identifiable cause Ordering Provider: FRANCK TURNER Report Released Date/Time: Sep 02, 2024 04:44 PM Reporting Lab: [address] [address] Performing Lab: [address] [address] CREATININE 150.9 mg/dL Sep 03, 2024 01:35 PM [facility] UREA NITROGEN URINE Specimen Type : URINE Comment: ~Altered mental status with no identifiable cause Ordering Provider: FRANCK TURNER Report Released Date/Time: Sep 02, 2024 04:44 PM Reporting Lab: [address] [address] Performing Lab: [address] [address] UREA NITROGEN 320 mg/dL Sep 03, 2024 01:35 PM [facility] OSMOLALITY URINE Specimen Type: URINE Comment: ~Altered mental status with no identifiable cause Ordering Provider: FRANCK TURNER Report Released Date/Time: Sep 02, 2024 04:44 PM Reporting Lab: [address] [address] Performing Lab: [address] [address] OSMOLALITY 522 mosm/kg 38-1400 Sep 03, 2024 01:35 PM [facility] URINALYSIS WITH REFLEX TO CULTURE URINE Specimen Type: URINE Comment: ~Altered mental status with no identifiable cause Ordering Provider: FRANCK TURNER Report Released Date/Time: Sep 02, 2024 04:44 PM Reporting Lab: [address] [address] Performing Lab: [address] [address] URINE COLOR Yellow Colorless-Yellow APPEARANCE CLOUDY H [...] H 0-28 Sep 03, 2024 11:58 AM [place] GLUCOSE-HAND MONITOR CAPILLARY Specime n Type: CAPILLARY Comment: AAMIR RN notified Test performed by: [id number] Meter #: [id number] Ordering Provider: FRANCK TURNER Report Released Date/Time: Sep 03, 2024 12:15 PM Reporting Lab: [address] [address] Performing Lab: [address] [address] GLUCOSE-HAND MONITOR 135 mg/dL H Sep 03, 2024 07:09 AM [place] GLUCOSE-HAND MONITOR CAPILLARY Specime n Type: CAPILLARY Comment: Test performed by: [id number] Meter #: [id number] Ordering Provider: FRANCK TURNER Report Released Date/Time: Sep 03, 2024 07:26 AM Reporting Lab: [address] [address] Performing Lab: [address] [address] GLUCOSE-HAND MONITOR 120 mg/dL H -Sep 03, 2024 07:05 AM [facility] CBC/PLT BLOOD Specimen Type: BLOOD No comment entered. Ordering Provider: FRANCK TURNER Report Released Date/Time: Sep 02, 2024 04:29 PM Reporting Lab: [address] [address] Performing Lab: [address] [address] WBC 6.9 10*3/uL 5.0-10.0 RBC 3.48 10*6/uL L 4.6-6.2 HGB 9.5 g/dL L 14.0-18.0 HCT 29.1 L 42.0-52.0 MCV 83.6 fL 80.0-94.0 MCH 27.3 pg 27.0-31.0 MCHC 32.6 g/dL 32.0-36.0 PLT 258 10*3/uL 150-450 MPV 10.3 fL 9.0-13.1 RDW 14.8 11.0-16.0 NRBC 0.0 0.0-0.0 Sep 03, 2024 07:05 AM [place] MAGNESIUM PLASMA Specimen Type: PLASM A Comment: [...] 02, 2024 04:29 PM Reporting Lab: [address] [address] Performing Lab: [address] [address] MAGNESIUM 1.7 mg/dL 1.6-2.6 Sep 03, 2024 07:05 AM [place] PANEL 1 PLASMA Specimen Type: PLASM A [...] 02, 2024 04:29 PM Reporting Lab: [address] [address] Performing Lab: [address] [address] CREATININE 0.82 mg/dL 0.72-1.25 UREA NITROGEN 12 mg/dL 9-25 GLUCOSE 109 mg/dL H 74-100 SODIUM 129 mmol/L L 136-145 POTASSIUM 4.2 mmol/L 3.5-5.1 CHLORIDE 99 mmol/L 98-107 CO2 21 mmol/L L 22-29 CALCIUM 8.1 mg/dL L 8.4-10.2 ANION GAP 9 meq/L 3-19 eGFR (CKD-EPI) 90 Sep 03, 2024 07:05 AM [place] GLYCOHEMOGLOBIN BLOOD Specimen Type: BLOOD Comment: Prediabetes: 5.7%-6.4% Diabetes: >= 6.5% [facility] guidelines for A1c interpretation: Glycemic control targets are based on Shared Decision Making between clinicians and patients. Criteria used to establish an A1c target recommendation can be found at https://www.ct.gov/qualityandpatientsafety/ and include the use of result accuracy [...] 8.73 and 9.27. Ref: https://ngsp.org/CAPdata.asp. The in-house [employer] D-100 analyzer has a historical CV <= 2%. Contact the laboratory for further performance characteristics of this assay. Ordering Provider: FRANCK TURNER Report Released Date/Time: Sep 02, 2024 04:29 PM Reporting Lab: [address] [address] Performing Lab: [place] [phone] GLYCOHEMOGLOBIN 5.6 4.4-5.6 Sep 03, 2024 07:05 AM [place] OSMOLALITY SERUM Specimen Type: SERUM No comment entered. Ordering Provider: FRANCK TURNER Report Released Date/Time: Sep 02, 2024 04:44 PM Reporting Lab: [address] [address] Performing Lab: [address] [address] OSMOLALITY 271 mosm/kg L 280-300 Sep 02, 2024 08:15 PM [place] GLUCOSE-HAND MONITOR CAPILLARY Specime n Type: CAPILLARY Comment: AAMRI DEXTER notified Test performed by: [id number] Meter #: [id number] Ordering Provider: FRANCK TURNER Report Released Date/Time: Sep 02, 2024 08:57 PM Reporting Lab: [address] [address] Performing Lab: [address] [address] GLUCOSE-HAND MONITOR 126 mg/dL H 71-99 Sep 02, 2024 06:10 PM [place] MRSA SURVL NARES DNA NARES Specime n [...] 02, 2024 05:12 PM Reporting Lab: [address] [address] Performing Lab: [address] [address] MRSA SURVL NARES DNA Negative Negative Sep 02, 2024 05:36 PM [place] GLUCOSE-HAND MONITOR CAPILLARY Specime n Type: CAPILLARY Comment: Test performed by: [id number] Meter #: [id number] Ordering Provider: FRANCK TURNER Report Released Date/Time: Sep 02, 2024 05:53 PM Reporting Lab: [address] [address] Performing Lab: [address] [address] GLUCOSE-HAND MONITOR 127 mg/dL H 71-99 Aug 29, 2024 10:04 PM [place] URINALYSIS WITH REFLEX TO CULTURE URINE Specimen Type: URINE Comment: ~For Test: URINALYSIS WITH REFLEX TO CULTURE ~REORDER Ordering Provider: FELISA COLE Report Released Date/Time: Aug 29, 2024 09:36 PM Reporting Lab: [address] [address] Performing Lab: [address] [address] URINE COLOR Yellow Colorless-Yellow APPEARANCE Clear Clear [...] /[LPF] 0-28 Aug 29, 2024 08:32 PM [facility] HIGH SENSITIVITY TROPONIN I PLASMA Specimen [...] 29, 2024 07:55 PM Reporting Lab: [address] [address] Performing Lab: [address] [address] HIGH SENSITIVITY TROPONIN I 7 4-35 Aug 29, 2024 08:32 PM [place] CBC/PLT BLOOD Specimen Type: BLOOD No comment entered. Ordering Provider: FELISA COLE Report Released Date/Time: Aug 29, 2024 07:55 PM Reporting Lab: [address] [address] Performing Lab: [address] [address] WBC 11.2 10*3/uL H 5.0-10.0 RBC 3.97 10*6/uL L 4.6-6.2 HGB 10.9 g/dL L 14.0-18.0 HCT 33.5 L 42.0-52.0 MCV 84.4 fL 80.0-94.0 MCH 27.5 pg 27.0-31.0 MCHC 32.5 g/dL 32.0-36.0 PLT 230 10*3/uL 150-450 MPV 10.2 fL 9.0-13.1 RDW 14.6 11.0-16.0 NRBC 0.0 0.0-0.0 Aug 29, 2024 08:32 PM [facility] PANEL 5 PLASMA Specimen Type: PLASM [...] 29, 2024 07:55 PM Reporting Lab: [address] [address] Performing Lab: [address] [address] CREATININE 0.85 mg/dL 0.72-1.25 UREA NITROGEN 15 [...] 07, 2024 09:02 PM 0 [place] [facility] Sep 07, 2024 08:01 PM 97.8 F 66 /min 148/76 mm[Hg] 16 /min 95 % 0 [facility] Sep 07, 2024 04:38 PM 97.0 F 61 /min 122/69 mm[Hg] 20 /min 94 % 0 [place] [facility] Sep 07, 2024 02:23 PM 0 [place] [facility] Sep 07, 2024 12:08 PM 62 /min 118/68 mm[Hg] [place] Advance Directives: All historical and [...] 08, 2024 ADVANCE DIRECTIVE DISCUSSION [facility] Radiology Reports: +/- [...] BRAIN W & W/O: LUIS MANUEL PERDOMO [id number] -1945 M Exm Date: SEP 06, 2024@13:40 Req Phys: FRANCK TURNER Loc: 5-MED/TEL/09-06-2024@19:09 Img Loc: [facility] Service: [place] [address] (Case [id number] COMPLETE) MRI BRAIN W & W/O (MRI Detailed) CPT:81342 Contrast Media : Gadolinium Reason for Study: SEE CLINICAL HISTORY Pharmaceutical: GADOTERIDOL 279.3MG/ML 20ML INJ, 19ml Clinical History: MRI Screening (Required): IMPLANTED DEVICE DOCUMENTATION IMPLANTED DEVICE DOCUMENTATION NOT FOUND Does the [place] have any Cardiac Implants? None Does the have any implanted stimulators? None Does the [place] have cochlear implants? No Does the have [...] 06, 2024 Date Verified: SEP 06, 2024 Scientific Informatics Project Leader E-Sig: Report: MRI brain without and with [...] Staff: ARCENIO LEYVA, Staff Radiologist Verified by numerical control lathe operator for ARCENIO LEYVA /ARCENIO AVILA-[facility] Sep 06, 2024 01:40 PM MRI C SPINE W & W/ O CONTRAST(FURTHER SEQUENCES): LUIS MANUEL PERDOMO [id number] -1945 M Exm Date: SEP 06, 2024@13:40 Req Phys: FRANCK TURNERISIAHFLOSav Pat Loc: 5-MED/TEL/09-07-2024@06:42 Img Loc: [facility] Service: [place] [address] (Case [id number] COMPLETE) MRI C SPINE W & W/O CONTRAST(FURT(MRI Detailed) CPT:58506 Contrast Media : Gadolinium Reason for Study: SEE CLINICAL HISTORY Pharmaceutical: GADOTERIDOL 279.3MG/ML 20ML INJ, 19ml Clinical History: STATUS OF PLAIN FILMS:Not performed (Provide justification for MR W/O prior plain films below.) MRI for MS MRI Screening (Required): IMPLANTED DEVICE DOCUMENTATION IMPLANTED DEVICE DOCUMENTATION NOT FOUND Does the [place] have any Cardiac Implants? None Does the [place] have any implanted stimulators? None Does the [place] have cochlear implants? No Does the have Cerebral aneurysm clip(s)? I don't know Does the [place] have any shrapnel? I don't know If [...] 07, 2024 Date Verified: SEP 07, 2024 Scientific Informatics Project Leader E-Sig: Report: EXAMINATION: MRI OF THE CERVICAL [...] Interpreting Staff: HUANG TAI, Radiologist Verified by numerical control lathe operator for HUANG TAI /HUANG [facility] Sep 03, 2024 10:45 AM CHEST SINGLE(1) EW: LUIS MANUEL PERDOMO [id number] -1945 M Exm Date: SEP 03, 2024@10:45 Req Phys: FRANCK TURNER Pat Loc: 5-MED/TEL/09-03-2024@10:56 Img Loc: [facility] Service: [place] [address] (Case [id number] COMPLETE)CHEST SINGLE(1) VIEW (RAD Detailed) CPT:91200 Proc Modifiers : PORTABLE EXAM Reason for Study: Eval volume status Clinical History: Report Status: Verified Date Reported: SEP 03, 2024 Date Verified: SEP 03, 2024 Scientific Informatics Project Leader E-Sig: Report: EXAMINATION: SINGLE VIEW CHEST CLINICAL [...] Interpreting Staff: HUANG TAI, Radiologist Verified by numerical control lathe operator for HUANG ATI /HUANG [place] Aug 29, 2024 08:[address] HEAD W/O CONT: LUIS MANUEL PERDOMO [id number] -1945 M Exm Date: AUG 29, 2024@20:28 Req Phys: FELISA COLE Loc: ED/4P-12A (Req'g Loc) Img Loc: CT SCAN Service: Unknown [place] [id number] (Case [id number] COMPLETE) CT HEAD W/O CONT (CT Detailed) CPT:16420 Reason for Study: SEE CLINICAL HISTORY Clinical History: REASON FOR SEND OUT: ATTENDING PHYSICIAN NAME: New transient neurological s/s - suspected TIA HISTORY/REASON FOR EXAM: confusion Report Status: Verified Date Reported: AUG 29, 2024 Date Verified: AUG 29, 2024 Scientific Informatics Project Leader E-Sig: Report: HISTORY confusion COMPARISON No prior [...] Staff: ABDIRAHMAN CROW, Staff Physician Verified by numerical control lathe operator for ABDIRAHMAN CROW /[facility] Pathology Reports: +/- 30 days of [...] Reporting Lab: [facility] [CLIA# [id number]] [address] [place] [id number] Accession [UID]: [id number] [[id number]] Received: Sep 03, 2024@14:02 Collection sample: URINE, [...] Performed By: [facility] [CLIA# [id number]] [address] [place], [place] [id number] [facility] Sep 02, 2024 06:00 PM LR MICROBIOLOGY RE PORT: Reporting Lab: [facility] [CLIA# [id number]] [address] [place] [address] Accession [UID]: [id number] [[id number]] Received: Sep 02, 2024@18:07 Collection sample: BLD CULTURE BOTTLES Collection date: Sep 02, 2024 18:00 Site/Specimen: BLOOD Provider: FRANCK TURNER Comment on specimen: L HAND Test(s) ordered: CULTURE, BLOOD................ completed: Sep 08, 2024 * BACTERIOLOGY FINAL REPORT => Sep 08, 2024 08:25 TECH CODE: [id number] Bacteriology Remark(s): Blood culture status=NO GROWTH (unless notified otherwise) 09/03/2024 AEROBIC: NO GROWTH ANAEROBIC: NO GROWTH =--=--=--=--=--=--=--=--=--=-- =--=--=--=--=--=--=--=--=--=-- =--=--=--=--=--=-- Performing Laboratory: Bacteriology Report Performed By: [facility] [CLIA# [id number]] [address] [place] [address] MAGDY CALABRESE [place] Aug 29, 2024 10:18 PM LR MICROBIOLOGY RE PORT: Reporting Lab: [facility] [CLIA# [id number]] [address] [place] [address] Accession [UID]: [id number] [[id number]] Received: Aug 29, 2024@22:18 Collection sample: URINE, CLEAN CATCH Collection date: Aug 29, 2024 22:18 Site/Specimen: URINE Provider: FELISA COLE Test(s) ordered: CULTURE, URINE................ completed: Aug 31, 2024 09:51 * BACTERIOLOGY FINAL REPORT => Aug 31, 2024 09:51 TECH CODE: [id number] Bacteriology Remark(s): NO GROWTH 08/30/2024 <10,000 CFU/ML. 08/31/2024 =--=--=--=--=--=--=--=--=--=-- =--=--=--=--=--=--=--=--=--=-- =--=--=--=--=--=-- Performing Laboratory: Bacteriology Report Performed By: [facility] [CLIA# [id number]] [address] [place] [address] MAGDY CALABRESE[facility]
--- OUTSIDE RECORDS SUMMARY | 2024-09-07 17:08 | XMS_ITS ---
[place] DAILY HOSPITALIZATION DATA [facility] Encounter Summary Created on: September 22, 2024 LUIS MANUEL PERDOMO : 1945 Sex: Male Author Name [facility] Organization [facility] Address [address] [place] [address] Care Team Providers Care Jumpbasting Lining Baster Name Role Phone YULISSA HENDERSON Primary Care [...] PLAN F Mar 24, 2014 PLAN F [id number] LUIS MANUEL PERDOMO PATIENT [facility] [place] [facility] PREFERRED PROVIDER ORGANIZAT ION (PPO) [facility] SLE Sep 21, 2012 [id number] [phone] LUSI MANUEL PERDOMO PATIENT [employer] ([id number]) PRESCRIPT ION WL3A Sep 21, 2012 [id number] LUIS MANUEL PERDOMO PATIENT MEDICARE (WNR) MEDICARE (M) PART B Sep 21, 2012 PART B [id number] NOEMI PERDOMO PATIENT MEDICARE (WNR) MEDICARE (M) PART A Jan 22, 2011 PART A [id number] LEANNE, NOEMI PATIENT MEDICARE PART D (WNR) MEDICARE (M) PART D Mar 24, 2014 PART D [id number] LUIS MANUEL PERDOMO PATIENT Selected Encounter This section includes the information on record at PA for the Encounter. Date/Time Encounter Type Encounter Description Reason Pro vider Source Sep 07, 2024 09:08 PM Inpatient Visit DAILY HOSPITALIZATION DATA [facility] Encounter Template Text not used by PA Plan of Treatment: Future Appointments (+ 6 months) and Future Tests (+/- 45 days) The Plan of Treatment section includes future care activities for the patient from [facility] This section includes [...] 13, 2024 08:00 AM [facility] Sep 30, 2024 01:30 PM [facility] - SURGERY [facility] Active, Pending, and Scheduled [...] Sep 13, 2024 01:33 PM Consult Order [facility] SKILLED HOME CARE Cons Project Finance Analyst's Choice [facility] Lab Results: +/- [...] Type Comment Sep 09, 2024 12:16 PM [facility] GLUCOSE-HAND MONITOR CAPILLARY Specimen Type: CAPILLARY Comment: Test performed by: [id number] Meter #: [id number] Ordering Provider: FRANCK TURNER Report Released Date/Time: Sep 09, 2024 12:33 PM Reporting Lab: [address] [address] Performing Lab: [address] [address] GLUCOSE-HAND MONITOR 116 mg/dL H Sep 09, 2024 06:07 AM [facility] GLUCOSE-HAND MONITOR CAPILLARY Specime n Type: CAPILLARY Comment: Test performed by: [id number] Meter #: [id number] Ordering Provider: FRANCK TURNER Report Released Date/Time: Sep 09, 2024 08:17 AM Reporting Lab: [address] [address] Performing Lab: [address] [address] GLUCOSE-HAND MONITOR 112 mg/dL H Sep 08, 2024 09:13 PM [facility] GLUCOSE-HAND MONITOR CAPILLARY Specime n Type: CAPILLARY Comment: Test performed by: [id number] Meter #: [id number] Ordering Provider: FRANCK TURNER Report Released Date/Time: Sep 08, 2024 09:31 PM Reporting Lab: [address] [address] Performing Lab: [address] [address] GLUCOSE-HAND MONITOR 107 mg/dL H Sep 08, 2024 03:49 PM [facility] GLUCOSE-HAND MONITOR CAPILLARY Specime n Type: CAPILLARY Comment: AAMIR RN notified Test performed by: [id number] Meter #: [id number] Ordering Provider: FRANCK TURNER Report Released Date/Time: Sep 08, 2024 04:33 PM Reporting Lab: [address] [address] Performing Lab: [address] [address] GLUCOSE-HAND MONITOR 162 mg/dL H Sep 08, 2024 11:43 AM [facility] GLUCOSE-HAND MONITOR CAPILLARY Specime n Type: CAPILLARY Comment: AAMIR RN notified Test performed by: [id number] Meter #: [id number] Ordering Provider: FRANCK TURNER Report Released Date/Time: Sep 08, 2024 12:03 PM Reporting Lab: [address] [address] Performing Lab: [address] [address] GLUCOSE-HAND MONITOR 133 mg/dL H Sep 08, 2024 06:13 AM [facility] GLUCOSE-HAND MONITOR CAPILLARY Specime n Type: CAPILLARY Comment: Test performed by: [id number] Meter #: [id number] Ordering Provider: FRANCK TURNER Report Released Date/Time: Sep 08, 2024 06:46 AM Reporting Lab: [address] [address] Performing Lab: [address] [address] GLUCOSE-HAND MONITOR 104 mg/dL H Sep 07, 2024 07:59 PM [facility] GLUCOSE-HAND MONITOR CAPILLARY Specime n Type: CAPILLARY Comment: Test performed by: [id number] Meter #: [id number] Ordering Provider: FRANCK TURNER Report Released Date/Time: Sep 07, 2024 09:05 PM Reporting Lab: [address] [address] Performing Lab: [address] [address] GLUCOSE-HAND MONITOR 107 mg/dL H Sep 07, 2024 04:39 PM [facility] GLUCOSE-HAND MONITOR CAPILLARY Specime n Type: CAPILLARY Comment: Test performed by: [id number] Meter #: [id number] Ordering Provider: FRANCK TURNER Report Released Date/Time: Sep 07, 2024 05:09 PM Reporting Lab: [address] [address] Performing Lab: [address] [address] GLUCOSE-HAND MONITOR 105 mg/dL H Sep 07, 2024 11:41 AM [facility] GLUCOSE-HAND MONITOR CAPILLARY Specime n Type: CAPILLARY Comment: Test performed by: [id number] Meter #: [id number] Ordering Provider: FRANCK TURNER Report Released Date/Time: Sep 07, 2024 12:41 PM Reporting Lab: [address] [address] Performing Lab: [address] [address] GLUCOSE-HAND MONITOR 144 mg/dL H Sep 07, 2024 05:56 AM [facility] GLUCOSE-HAND MONITOR CAPILLARY Specime n Type: CAPILLARY Comment: Test performed by: [id number] Meter #: [id number] Ordering Provider: FRANCK TURNER Report Released Date/Time: Sep 07, 2024 06:31 AM Reporting Lab: [address] [address] Performing Lab: [address] [address] GLUCOSE-HAND MONITOR 96 mg/dL Sep 06, 2024 08:10 PM [facility] GLUCOSE-HAND MONITOR CAPILLARY Specime n Type: CAPILLARY Comment: Test performed by: [id number] Meter #: [id number] Ordering Provider: FRANCK TURNER Report Released Date/Time: Sep 06, 2024 08:52 PM Reporting Lab: [address] [address] Performing Lab: [address] [address] GLUCOSE-HAND MONITOR 124 mg/dL H Sep 06, 2024 04:27 PM [facility] GLUCOSE-HAND MONITOR CAPILLARY Specime n Type: CAPILLARY Comment: Test performed by: [id number] Meter #: [id number] Ordering Provider: FRANCK TURNER Report Released Date/Time: Sep 06, 2024 05:15 PM Reporting Lab: [address] [address] Performing Lab: [address] [address] GLUCOSE-HAND MONITOR 107 mg/dL H Sep 06, 2024 12:12 PM [facility] GLUCOSE-HAND MONITOR CAPILLARY Specime n Type: CAPILLARY Comment: Test performed by: [id number] Meter #: [id number] Ordering Provider: FRANCK TURNER Report Released Date/Time: Sep 06, 2024 12:29 PM Reporting Lab: [address] [address] Performing Lab: [address] [address] GLUCOSE-HAND MONITOR 181 mg/dL H -Sep 06, 2024 06:13 AM [facility] GLUCOSE-HAND MONITOR CAPILLARY Specime n Type: CAPILLARY Comment: Test performed by: [id number] Meter #: [id number] Ordering Provider: FRANCK TURNER Report Released Date/Time: Sep 06, 2024 06:36 AM Reporting Lab: [address] [address] Performing Lab: [address] [address] GLUCOSE-HAND MONITOR 102 mg/dL H Sep 05, 2024 08:47 PM [facility] GLUCOSE-HAND MONITOR CAPILLARY Specime n Type: CAPILLARY Comment: Test performed by: [id number] Meter #: [id number] Ordering Provider: FRANCK TURNER Report Released Date/Time: Sep 06, 2024 02:13 AM Reporting Lab: [address] [address] Performing Lab: [address] [address] GLUCOSE-HAND MONITOR 103 mg/dL H Sep 05, 2024 04:40 PM [facility] GLUCOSE-HAND MONITOR CAPILLARY Specime n Type: CAPILLARY Comment: AAMIR RN notified Test performed by: [id number] Meter #: [id number] Ordering Provider: FRANCK TURNER Report Released Date/Time: Sep 05, 2024 05:11 PM Reporting Lab: [address] [address] Performing Lab: [address] [address] GLUCOSE-HAND MONITOR 113 mg/dL H Sep 05, 2024 12:06 PM [facility] GLUCOSE-HAND MONITOR CAPILLARY Specime n Type: CAPILLARY Comment: Test performed by: [id number] Meter #: [id number] Ordering Provider: FRANCK TURNER Report Released Date/Time: Sep 05, 2024 12:23 PM Reporting Lab: [address] [address] Performing Lab: [address] [address] GLUCOSE-HAND MONITOR 115 mg/dL H Sep 05, 2024 06:26 AM [facility] GLUCOSE-HAND MONITOR CAPILLARY Specime n Type: CAPILLARY Comment: AAMIR Correction Dose Test performed by: [id number] Meter #: [id number] Ordering Provider: FRANCK TURNER Report Released Date/Time: Sep 05, 2024 06:43 AM Reporting Lab: [address] [address] Performing Lab: [address] [address] GLUCOSE-HAND MONITOR 111 mg/dL H Sep 04, 2024 08:59 PM [facility] GLUCOSE-HAND MONITOR CAPILLARY Specime n Type: CAPILLARY Comment: AAMIR RN notified Test performed by: [id number] Meter #: [id number] Ordering Provider: FRANCK TURNER Report Released Date/Time: Sep 04, 2024 09:36 PM Reporting Lab: [address] [address] Performing Lab: [address] [address] GLUCOSE-HAND MONITOR 123 mg/dL H Sep 04, 2024 04:41 PM [facility] GLUCOSE-HAND MONITOR CAPILLARY Specime n Type: CAPILLARY Comment: AAMIR RN notified Test performed by: [id number] Meter #: [id number] Ordering Provider: FRANCK TURNER Report Released Date/Time: Sep 04, 2024 05:03 PM Reporting Lab: [address] [address] Performing Lab: [address] [address] GLUCOSE-HAND MONITOR 118 mg/dL H Sep 04, 2024 12:36 PM [facility] GLUCOSE-HAND MONITOR CAPILLARY Specime n Type: CAPILLARY Comment: AAMIR RN notified Test performed by: [id number] Meter #: [id number] Ordering Provider: FRANCK TURNER Report Released Date/Time: Sep 04, 2024 12:53 PM Reporting Lab: [address] [address] Performing Lab: [place] [address] GLUCOSE-HAND MONITOR 129 mg/dL H 71-99 Sep 04, 2024 12:03 PM [facility] RESPIRATORY VIRUS PANEL (BIOFIRE) NASOPHARYN X Specimen Type: NASOPHARYNX Comment: ~For Test: RESPIRATORY VIRUS PANEL (BIOFIRE) ~ORDER READ BACK TO: FRANCK TURNER 09/04/24@11:30 Ordering Provider: FRANCK TURNER Report Released Date/Time: Sep 04, 2024 11:33 AM Reporting Lab: [place] [id number] Performing Lab: [place] [phone] ADENOVIRUS (BIOFIRE) Not Detected -Not D etected [...] 04, 2024 06:55 AM [facility] MAGNESIUM PLASMA Specimen [...] 03, 2024 11:10 AM Reporting Lab: [place] [facility] [address] [facility] [address] Performing Lab: [place] [address] [facility] [address] MAGNESIUM 1.8 mg/dL 1.6-2.6 Sep 04, 2024 [...] Sep 03, 2024 11:10 AM Reporting Lab: [address] [address] Performing Lab: [address] CREATININE 0.75 mg/dL 0.72-1.25 UREA NITROGEN [...] n Type: CAPILLARY Comment: Test performed by: [id number] Meter #: [id number] Ordering Provider: FRANCK TURNER Report Released Date/Time: Sep 04, 2024 06:28 AM Reporting Lab: [address] Performing Lab: [address] GLUCOSE-HAND MONITOR 114 mg/dL H 71-99 Sep 03, 2024 05:19 PM [facility] GLUCOSE-HAND MONITOR CAPILLARY Specime n Type: CAPILLARY Comment: Test performed by: [id number] Meter #: [id number] Ordering Provider: FRANCK TURNER Report Released Date/Time: Sep 03, 2024 05:37 PM Reporting Lab: [address] Performing Lab: [address] [address] GLUCOSE-HAND MONITOR 124 mg/dL H 71-99 Sep 03, 2024 04:41 PM [facility] GLUCOSE-HAND MONITOR CAPILLARY Specime n Type: CAPILLARY Comment: Test performed by: [id number] Meter #: [id number] Ordering Provider: FRANCK TURNER Report Released Date/Time: Sep 03, 2024 06:09 PM Reporting Lab: [address] [address] Performing Lab: [address] [address] GLUCOSE-HAND MONITOR 112 mg/dL H 71-99 Sep 03, 2024 01:35 PM [facility] URINE LYTES URINE Specimen Type : URINE Comment: ~Altered mental status with no identifiable cause Ordering Provider: FRANCK TURNER Report Released Date/Time: Sep 02, 2024 04:44 PM Reporting Lab: [address] [address] Performing Lab: [address] [address] SODIUM 130 mmol/L POTASSIUM 47.6 mmol/L CHLORIDE 137 mmol/L Sep 03, 2024 01:35 PM [facility] CREATININE URINE Specimen Type: URINE Comment: ~Altered mental status with no identifiable cause Ordering Provider: FRANCK TURNER Report Released Date/Time: Sep 02, 2024 04:44 PM Reporting Lab: [address] [address] Performing Lab: [address] [address] CREATININE 150.9 mg/dL Sep 03, 2024 01:35 PM [facility] OSMOLALITY URINE Specimen Type: URINE Comment: ~Altered mental status with no identifiable cause Ordering Provider: FRANCK TURNER Report Released Date/Time: Sep 02, 2024 04:44 PM Reporting Lab: [address] [address] Performing Lab: [address] [address] OSMOLALITY 522 mosm/kg 38-1400 Sep 03, 2024 01:35 PM [facility] UREA NITROGEN URINE Specimen Type : URINE Comment: ~Altered mental status with no identifiable cause Ordering Provider: FRANCK TURNER Report Released Date/Time: Sep 02, 2024 04:44 PM Reporting Lab: [address] [address] Performing Lab: [address] [address] UREA NITROGEN 320 mg/dL Sep 03, 2024 01:35 PM [facility] URINALYSIS WITH REFLEX TO CULTURE URINE Specimen Type: URINE Comment: ~Altered mental status with no identifiable cause Ordering Provider: FRANCK TUNRER Report Released Date/Time: Sep 02, 2024 04:44 PM Reporting Lab: [address] [address] Performing Lab: [address] [address] URINE COLOR Yellow Colorless-Yellow APPEARANCE CLOUDY H [...] Comment: AAMIR RN notified Test performed by: [id number] Meter #: [id number] Ordering Provider: FRANCK TURNER Report Released Date/Time: Sep 03, 2024 12:15 PM Reporting Lab: [address] [address] Performing Lab: [address] [address] GLUCOSE-HAND MONITOR 135 mg/dL H Sep 03, 2024 07:09 AM [facility] GLUCOSE-HAND MONITOR CAPILLARY Specime n Type: CAPILLARY Comment: Test performed by: [id number] Meter #: [id number] Ordering Provider: FRANCK TURNER Report Released Date/Time: Sep 03, 2024 07:26 AM Reporting Lab: [address] [address] Performing Lab: [address] [address] GLUCOSE-HAND MONITOR 120 mg/dL H -Sep 03, 2024 07:05 AM [facility] CBC/PLT BLOOD Specimen Type: BLOOD No comment entered. Ordering Provider: FRANCK TURNER Report Released Date/Time: Sep 02, 2024 04:29 PM Reporting Lab: [address] [address] Performing Lab: [address] [address] WBC 6.9 10*3/uL 5.0-10.0 RBC 3.48 10*6/uL [...] 02, 2024 04:29 PM Reporting Lab: [address] [address] Performing Lab: [address] [address] MAGNESIUM 1.7 mg/dL 1.6-2.6 Sep 03, 2024 [...] 02, 2024 04:29 PM Reporting Lab: [address] [address] Performing Lab: [address] [address] CREATININE 0.82 mg/dL 0.72-1.25 UREA NITROGEN 12 [...] BLOOD Comment: Prediabetes: 5.7%-6.4% Diabetes: >= 6.5% [facility] guidelines for A1c interpretation: [...] 8.73 and 9.27. Ref: https://ngsp.org/CAPdata.asp. The in-house [employer] D-100 analyzer has a historical CV <= 2%. Contact the laboratory for further performance characteristics of this assay. Ordering Provider: FRANCK TURNER Report Released Date/Time: Sep 02, 2024 04:29 PM Reporting Lab: [address] [address] Performing Lab: [place] [phone] GLYCOHEMOGLOBIN 5.6 4.4-5.6 Sep 03, 2024 07:05 AM [facility] OSMOLALITY SERUM Specimen Type: SERUM No comment entered. Ordering Provider: FRANCK TURNER Report Released Date/Time: Sep 02, 2024 04:44 PM Reporting Lab: [address] [address] Performing Lab: [address] [address] OSMOLALITY 271 mosm/kg L 280-300 Sep 02, 2024 08:15 PM [facility] GLUCOSE-HAND MONITOR CAPILLARY Specime n Type: CAPILLARY Comment: AAMIR DEXTER notified Test performed by: [id number] Meter #: [id number] Ordering Provider: FRANCK TURNER Report Released Date/Time: Sep 02, 2024 08:57 PM Reporting Lab: [address] [address] Performing Lab: [address] [address] GLUCOSE-HAND MONITOR 126 mg/dL H 71-99 Sep 02, 2024 06:10 PM [facility] [...] 02, 2024 05:12 PM Reporting Lab: [address] [address] Performing Lab: [address] [address] MRSA SURVL NARES DNA Negative Negative Sep 02, 2024 05:36 PM [facility] GLUCOSE-HAND MONITOR CAPILLARY Specime n Type: CAPILLARY Comment: Test performed by: [id number] Meter #: [id number] Ordering Provider: FRANCK TURNER Report Released Date/Time: Sep 02, 2024 05:53 PM Reporting Lab: [address] [address] Performing Lab: [address] [address] GLUCOSE-HAND MONITOR 127 mg/dL H 71-99 Aug 29, 2024 10:04 PM [facility] URINALYSIS WITH REFLEX TO CULTURE URINE Specimen Type: URINE Comment: ~For Test: URINALYSIS WITH REFLEX TO CULTURE ~REORDER Ordering Provider: FELISA COLE Report Released Date/Time: Aug 29, 2024 09:36 PM Reporting Lab: [address] [address] Performing Lab: [address] [address] URINE COLOR Yellow Colorless-Yellow APPEARANCE Clear Clear [...] 29, 2024 07:55 PM Reporting Lab: [address] [address] Performing Lab: [address] [address] HIGH SENSITIVITY TROPONIN I 7 4-35 Aug 29, 2024 08:32 PM [facility] CBC/PLT BLOOD Specimen Type: BLOOD No comment entered. Ordering Provider: FELISA COLE Report Released Date/Time: Aug 29, 2024 07:55 PM Reporting Lab: [address] [address] Performing Lab: [address] [address] WBC 11.2 10*3/uL H 5.0-10.0 RBC 3.97 10*6/uL L 4.6-6.2 HGB 10.9 g/dL L 14.0-18.0 HCT 33.5 L 42.0-52.0 MCV 84.4 fL 80.0-94.0 MCH 27.5 pg 27.0-31.0 MCHC 32.5 g/dL 32.0-36.0 PLT 230 10*3/uL 150-450 MPV 10.2 fL 9.0-13.1 RDW 14.6 11.0-16.0 NRBC 0.0 0.0-0.0 Aug 29, 2024 08:32 PM [facility] PANEL 5 PLASMA Specimen Type: [...] 29, 2024 07:55 PM Reporting Lab: [address] [address] Performing Lab: [address] [address] CREATININE 0.85 mg/dL 0.72-1.25 UREA NITROGEN 15 [...] 07, 2024 09:02 PM [place] [facility] Sep 07, 2024 08:01 PM 97.8 F 66 /min 148/76 mm[Hg] 16 /min 95 % [facility] Sep 07, 2024 04:38 PM 97.0 F 61 /min 122/69 mm[Hg] 20 /min 94 % 0 [place] [facility] Sep 07, 2024 02:23 PM 0 [place] Sep 07, 2024 12:08 PM 62 /min 118/68 mm[Hg] [place] [facility] Advance Directives: All historical and current [...] 2024 ADVANCE DIRECTIVE DISCUSSION [facility] Radiology Reports: +/- 30 days [...] BRAIN W & W/O: LUIS MANUEL PERDOMO [id number] -1945 M Exm Date: SEP 06, 2024@13:40 Req Phys: FRANCK TURNER Loc: 5-MED/TEL/09-06-2024@19:09 Img Loc: [facility] Service: [place] [address] (Case [id number] COMPLETE) MRI BRAIN W & W/O (MRI Detailed) CPT:53019 Contrast Media : Gadolinium Reason for Study: SEE CLINICAL HISTORY Pharmaceutical: GADOTERIDOL 279.3MG/ML 20ML INJ, 19ml Clinical History: MRI Screening (Required): IMPLANTED DEVICE DOCUMENTATION IMPLANTED DEVICE DOCUMENTATION NOT FOUND Does the [facility] have any Cardiac Implants? None Does the have any implanted stimulators? None Does the [facility] have cochlear implants? No Does the have [...] 06, 2024 Date Verified: SEP 06, 2024 Environmental Emergencies Planner E-Sig: Report: MRI brain without and with [...] Staff: ARCENIO LEYVA, Staff Radiologist Verified by electric meter tester for ARCENIO LEYVA /ARCENIO AVILA-CDD [facility] Sep 06, 2024 01:40 PM MRI C SPINE W & W/ O CONTRAST(FURTHER SEQUENCES): LUIS MANUEL PERDOMO [id number] -1945 M Exm Date: SEP 06, 2024@13:40 Req Phys: FRANCK TURNERISIAHFLOSav Pat Loc: 5-MED/TEL/09-07-2024@06:42 Img Loc: [facility] Service: [place] [address] (Case [id number] COMPLETE) MRI C SPINE W & W/O CONTRAST(FURT(MRI Detailed) CPT:84047 Contrast Media : Gadolinium Reason for Study: SEE CLINICAL HISTORY Pharmaceutical: GADOTERIDOL 279.3MG/ML 20ML INJ, 19ml Clinical History: STATUS OF PLAIN FILMS:Not performed (Provide justification for MR W/O prior plain films below.) MRI for MS MRI Screening (Required): IMPLANTED DEVICE DOCUMENTATION IMPLANTED DEVICE DOCUMENTATION NOT FOUND Does the [facility] have any Cardiac Implants? None Does the [facility] have any implanted stimulators? None Does the [place] have cochlear implants? No Does the have Cerebral aneurysm clip(s)? I don't know Does the [place] have any shrapnel? I don't know If [...] 07, 2024 Date Verified: SEP 07, 2024 Environmental Emergencies Planner E-Sig: Report: EXAMINATION: MRI OF THE CERVICAL [...] Interpreting Staff: HUANG TAI, Radiologist Verified by electric meter tester for HUANG TAI /HUANG WHEATLEY-MALKA [facility] Sep 03, 2024 10:45 AM CHEST SINGLE(1) EW: LUIS MANUEL PERDOMO [id number] -1945 M Exm Date: SEP 03, 2024@10:45 Req Phys: FRANCK TURNER Pat Loc: 5-MED/TEL/09-03-2024@10:56 Img Loc: CDD RADIOLOGY Service: [place] [address] (Case [id number] COMPLETE)CHEST SINGLE(1) VIEW (RAD Detailed) CPT:80778 Proc Modifiers : PORTABLE EXAM Reason for Study: Eval volume status Clinical History: Report Status: Verified Date Reported: SEP 03, 2024 Date Verified: SEP 03, 2024 Environmental Emergencies Planner E-Sig: Report: EXAMINATION: SINGLE VIEW CHEST CLINICAL [...] Interpreting Staff: HUANG TAI, Radiologist Verified by electric meter tester for HUANG TAI /HUANG WHEATLEY-CDD [facility] Aug 29, 2024 08:[address] HEAD W/O CONT: LUIS MANUEL PERDOMO [id number] -1945 M Exm Date: AUG 29, 2024@20:28 Req Phys: FELISA COLE Loc: ED/4P-12A (Req'g Loc) Img Loc: CT SCAN Service: Unknown [place] [id number] (Case [id number] COMPLETE) CT HEAD W/O CONT (CT Detailed) CPT:54732 Reason for Study: SEE CLINICAL HISTORY Clinical History: REASON FOR SEND OUT: ATTENDING PHYSICIAN NAME: New transient neurological s/s - suspected TIA HISTORY/REASON FOR EXAM: confusion Report Status: Verified Date Reported: AUG 29, 2024 Date Verified: AUG 29, 2024 Environmental Emergencies Planner E-Sig: Report: HISTORY confusion COMPARISON No [...] Staff: ABDIRAHMAN CROW, Staff Physician Verified by electric meter tester for ABDIRAHMAN CROW /[facility] Pathology Reports: +/- 30 days of [...] Reporting Lab: [facility] [CLIA# [id number]] [address] [place] [id number] Accession [UID]: [id number] [[id number]] Received: Sep 03, 2024@14:02 Collection sample: URINE, [...] Performed By: [facility] [CLIA# [id number]] [address] [place] [id number] [facility] Sep 02, 2024 06:00 PM LR MICROBIOLOGY RE PORT: Reporting Lab: [facility] [CLIA# [id number]] [address] [place] [address] Accession [UID]: [id number] [[id number]] Received: Sep 02, 2024@18:07 Collection sample: BLD CULTURE BOTTLES Collection date: Sep 02, 2024 18:00 Site/Specimen: BLOOD Provider: FRANCK TURNER Comment on specimen: L HAND Test(s) ordered: CULTURE, BLOOD................ completed: Sep 08, 2024 * BACTERIOLOGY FINAL REPORT => Sep 08, 2024 08:25 TECH CODE: [id number] Bacteriology Remark(s): Blood culture status=NO GROWTH (unless notified otherwise) 09/03/2024 AEROBIC: NO GROWTH ANAEROBIC: NO GROWTH =--=--=--=--=--=--=--=--=--=-- =--=--=--=--=--=--=--=--=--=-- =--=--=--=--=--=-- Performing Laboratory: Bacteriology Report Performed By: [facility] [CLIA# [id number]] [address] [place] [address] MAGDY CALABRESE [facility] Aug 29, 2024 10:18 PM LR MICROBIOLOGY RE PORT: Reporting Lab: [facility] [CLIA# [id number]] [address] [place] [address] Accession [UID]: [id number] [[id number]] Received: Aug 29, 2024@22:18 Collection sample: URINE, CLEAN CATCH Collection date: Aug 29, 2024 22:18 Site/Specimen: URINE Provider: FELISA COLE Test(s) ordered: CULTURE, URINE................ completed: Aug 31, 2024 09:51 * BACTERIOLOGY FINAL REPORT => Aug 31, 2024 09:51 TECH CODE: [id number] Bacteriology Remark(s): NO GROWTH 08/30/2024 <10,000 CFU/ML. 08/31/2024 =--=--=--=--=--=--=--=--=--=-- =--=--=--=--=--=--=--=--=--=-- =--=--=--=--=--=-- Performing Laboratory: Bacteriology Report Performed By: [facility] [CLIA# [id number]] [address] [place] [address] [facility]RESE[facility]
--- OUTSIDE RECORDS SUMMARY | 2024-09-07 20:00 | XMS_ITS | Encounter Summary ---
Author Name [facility] ([place]) [facility] Address [address] [place] [address] Care Team Providers Care Internet Researcher Name Role Phone YULISSA HENDERSON Primary Care [...] PLAN F Mar 24, 2014 PLAN F [id number] [phone] LUIS MANUEL PERDOMO PATIENT [facility] [place] [facility] PREFERRED PROVIDER ORGANIZAT ION (PPO) [facility] SLE Sep 21, 2012 [id number] LUIS MANUEL PERDOMO PATIENT [employer] [facility] ([id number]) PRESCRIPT ION [id number] Sep 21, 2012 [id number] LUIS MANUEL PERDOMO PATIENT MEDICARE (WNR) MEDICARE (M) PART B Sep 21, 2012 PART B [id number] NOEMI PERDOMO PATIENT MEDICARE (WNR) MEDICARE (M) PART A Jan 22, 2011 PART A [id number] [phone] NOEMI PERDOMO PATIENT MEDICARE PART D (WNR) MEDICARE (M) PART D Mar 24, 2014 PART D [id number] LUIS MANUEL PERDOMO PATIENT Selected Encounter This section includes the information on record at [place] for the Encounter. Date/Time Encounter Type Encounter Description Reason Pro vider Source Sep 08, 2024 12:00 AM Inpatient Visit EVENT (HISTORICAL) IHE Encounter Template Text not used by [place] Plan of Treatment: Future Appointments (+ 6 months) and Future Tests (+/- 45 days) The Plan of Treatment section includes future care activities for the patient from all [place] treatmentfacilities. This section includes future appointments and [...] 08:00 AM AMB[facility]ATORY - NONE [place] [facility] Sep 30, 2024 01:30 PM AMBULATORY - SURGERY [place] [facility] Active, Pending, and Scheduled Orders This section includes a listing of several types of active, pending, and scheduled orders, including clinic medications orders, diagnostic test orders, procedure orders and consult orders; where the start date of the order is 45 days before the date of the Encounter or 45 days after the date of theEncounter. The data comes from all [facility] facilities. Test Date/Time Test Type Test Details Facility Name Sep 13, 2024 01:33 PM Consult Order [facility] Cons Restaurant General Manager's Choice [facility] Lab Results: +/- [...] Specimen Type: CAPILLARY Comment: Test performed by: [id number] Meter #: [id number] Ordering Provider: FRANCK TURNER Report Released Date/Time: Sep 09, 2024 12:33 PM Reporting Lab: [address] [address] Performing Lab: [address] [address] GLUCOSE-HAND MONITOR 116 mg/dL H Sep 09, 2024 06:07 AM [facility] GLUCOSE-HAND MONITOR CAPILLARY Specime n Type: CAPILLARY Comment: Test performed by: [id number] Meter #: [id number] Ordering Provider: FRANCK TURNER Report Released Date/Time: Sep 09, 2024 08:17 AM Reporting Lab: [address] [address] Performing Lab: [address] [address] GLUCOSE-HAND MONITOR 112 mg/dL H Sep 08, 2024 09:13 PM [facility] GLUCOSE-HAND MONITOR CAPILLARY Specime n Type: CAPILLARY Comment: Test performed by: [id number] Meter #: [id number] Ordering Provider: FRANCK TURNER Report Released Date/Time: Sep 08, 2024 09:31 PM Reporting Lab: [address] [address] Performing Lab: [address] [address] GLUCOSE-HAND MONITOR 107 mg/dL H Sep 08, 2024 03:49 PM [facility] GLUCOSE-HAND MONITOR CAPILLARY Specime n Type: CAPILLARY Comment: AAMIR RN notified Test performed by: [id number] Meter #: [id number] Ordering Provider: FRANCK TURNER Report Released Date/Time: Sep 08, 2024 04:33 PM Reporting Lab: [address] [address] Performing Lab: [address] [address] GLUCOSE-HAND MONITOR 162 mg/dL H Sep 08, 2024 11:43 AM [facility] GLUCOSE-HAND MONITOR CAPILLARY Specime n Type: CAPILLARY Comment: AAMIR RN notified Test performed by: [id number] Meter #: [id number] Ordering Provider: FRANCK TURNER Report Released Date/Time: Sep 08, 2024 12:03 PM Reporting Lab: [address] [address] Performing Lab: [address] [address] GLUCOSE-HAND MONITOR 133 mg/dL H Sep 08, 2024 06:13 AM [facility] GLUCOSE-HAND MONITOR CAPILLARY Specime n Type: CAPILLARY Comment: Test performed by: [id number] Meter #: [id number] Ordering Provider: FRANCK TURNER Report Released Date/Time: Sep 08, 2024 06:46 AM Reporting Lab: [address] [address] Performing Lab: [address] [address] GLUCOSE-HAND MONITOR 104 mg/dL H Sep 07, 2024 07:59 PM [facility] GLUCOSE-HAND MONITOR CAPILLARY Specime n Type: CAPILLARY Comment: Test performed by: [id number] Meter #: [id number] Ordering Provider: FRANCK TURNER Report Released Date/Time: Sep 07, 2024 09:05 PM Reporting Lab: [address] [address] Performing Lab: [address] [address] GLUCOSE-HAND MONITOR 107 mg/dL H Sep 07, 2024 04:39 PM [facility] GLUCOSE-HAND MONITOR CAPILLARY Specime n Type: CAPILLARY Comment: Test performed by: [id number] Meter #: [id number] Ordering Provider: FRANCK TURNER Report Released Date/Time: Sep 07, 2024 05:09 PM Reporting Lab: [address] [address] Performing Lab: [address] [address] GLUCOSE-HAND MONITOR 105 mg/dL H Sep 07, 2024 11:41 AM [facility] GLUCOSE-HAND MONITOR CAPILLARY Specime n Type: CAPILLARY Comment: Test performed by: [id number] Meter #: [id number] Ordering Provider: FRANCK TURNER Report Released Date/Time: Sep 07, 2024 12:41 PM Reporting Lab: [address] [address] Performing Lab: [address] [address] GLUCOSE-HAND MONITOR 144 mg/dL H -Sep 07, 2024 05:56 AM [facility] GLUCOSE-HAND MONITOR CAPILLARY Specime n Type: CAPILLARY Comment: Test performed by: [id number] Meter #: [id number] Ordering Provider: FRANCK TURNER Report Released Date/Time: Sep 07, 2024 06:31 AM Reporting Lab: [place] [id number] Performing Lab: [place] [phone] GLUCOSE-HAND MONITOR 96 mg/dL Sep 06, 2024 08:10 PM [facility] GLUCOSE-HAND MONITOR CAPILLARY Specime n Type: CAPILLARY Comment: Test performed by: [id number] Meter #: [id number] Ordering Provider: FRANCK TURNER Report Released Date/Time: Sep 06, 2024 08:52 PM Reporting Lab: [address] [address] Performing Lab: [address] [address] GLUCOSE-HAND MONITOR 124 mg/dL H Sep 06, 2024 04:27 PM [facility] GLUCOSE-HAND MONITOR CAPILLARY Specime n Type: CAPILLARY Comment: Test performed by: [id number] Meter #: [id number] Ordering Provider: FRANCK TURNER Report Released Date/Time: Sep 06, 2024 05:15 PM Reporting Lab: [address] [address] Performing Lab: [address] [address] GLUCOSE-HAND MONITOR 107 mg/dL H Sep 06, 2024 12:12 PM [facility] GLUCOSE-HAND MONITOR CAPILLARY Specime n Type: CAPILLARY Comment: Test performed by: [id number] Meter #: [id number] Ordering Provider: FRANCK TURNER Report Released Date/Time: Sep 06, 2024 12:29 PM Reporting Lab: [address] [address] Performing Lab: [address] [address] GLUCOSE-HAND MONITOR 181 mg/dL H Sep 06, 2024 06:13 AM [facility] GLUCOSE-HAND MONITOR CAPILLARY Specime n Type: CAPILLARY Comment: Test performed by: [id number] Meter #: [id number] Ordering Provider: FRANCK TURNER Report Released Date/Time: Sep 06, 2024 06:36 AM Reporting Lab: [address] [address] Performing Lab: [address] [address] GLUCOSE-HAND MONITOR 102 mg/dL H Sep 05, 2024 08:47 PM [facility] GLUCOSE-HAND MONITOR CAPILLARY Specime n Type: CAPILLARY Comment: Test performed by: [id number] Meter #: [id number] Ordering Provider: FRANCK TURNER Report Released Date/Time: Sep 06, 2024 02:13 AM Reporting Lab: [address] [address] Performing Lab: [address] [address] GLUCOSE-HAND MONITOR 103 mg/dL H Sep 05, 2024 04:40 PM [facility] GLUCOSE-HAND MONITOR CAPILLARY Specime n Type: CAPILLARY Comment: AAMIR RN notified Test performed by: [id number] Meter #: [id number] Ordering Provider: FRANCK TURNER Report Released Date/Time: Sep 05, 2024 05:11 PM Reporting Lab: [address] [address] Performing Lab: [address] [address] GLUCOSE-HAND MONITOR 113 mg/dL H Sep 05, 2024 12:06 PM [facility] GLUCOSE-HAND MONITOR CAPILLARY Specime n Type: CAPILLARY Comment: Test performed by: [id number] Meter #: [id number] Ordering Provider: FRANCK TURNER Report Released Date/Time: Sep 05, 2024 12:23 PM Reporting Lab: [address] [address] Performing Lab: [address] [address] GLUCOSE-HAND MONITOR 115 mg/dL H Sep 05, 2024 06:26 AM [facility] GLUCOSE-HAND MONITOR CAPILLARY Specime n Type: CAPILLARY Comment: AAMIR Correction Dose Test performed by: [id number] Meter #: [id number] Ordering Provider: FRANCK TURNER Report Released Date/Time: Sep 05, 2024 06:43 AM Reporting Lab: [address] [address] Performing Lab: [address] [address] GLUCOSE-HAND MONITOR 111 mg/dL H Sep 04, 2024 08:59 PM [facility] GLUCOSE-HAND MONITOR CAPILLARY Specime n Type: CAPILLARY Comment: AAMIR RN notified Test performed by: [id number] Meter #: [id number] Ordering Provider: FRANCK TURNER Report Released Date/Time: Sep 04, 2024 09:36 PM Reporting Lab: [address] [address] Performing Lab: [address] [address] GLUCOSE-HAND MONITOR 123 mg/dL H Sep 04, 2024 04:41 PM [facility] GLUCOSE-HAND MONITOR CAPILLARY Specime n Type: CAPILLARY Comment: AAMIR RN notified Test performed by: [id number] Meter #: [id number] Ordering Provider: FRANCK TURNER Report Released Date/Time: Sep 04, 2024 05:03 PM Reporting Lab: [address] [address] Performing Lab: [address] [address] GLUCOSE-HAND MONITOR 118 mg/dL H Sep 04, 2024 12:36 PM [facility] GLUCOSE-HAND MONITOR CAPILLARY Specime n Type: CAPILLARY Comment: AAMIR RN notified Test performed by: [id number] Meter #: [id number] Ordering Provider: FRANCK TURNER Report Released Date/Time: Sep 04, 2024 12:53 PM Reporting Lab: [place] [id number] Performing Lab: [place] [address] GLUCOSE-HAND MONITOR 129 mg/dL H 71-99 Sep 04, 2024 12:03 PM [facility] RESPIRATORY VIRUS PANEL (BIOFIRE) NASOPHARYN X Specimen Type: NASOPHARYNX Comment: ~For Test: RESPIRATORY VIRUS PANEL (BIOFIRE) ~ORDER READ BACK TO: FRANCK TURNER 09/04/24@11:30 Ordering Provider: FRANCK TURNER Report Released Date/Time: Sep 04, 2024 11:33 AM Reporting Lab: [place] [id number] Performing Lab: [place] [phone] ADENOVIRUS (BIOFIRE) Not Detected -Not D etected [...] 03, 2024 11:10 AM Reporting Lab: [facility] [address] [facility] [address] Performing Lab: [facility] [address] [facility] [address] [facility] [address] MAGNESIUM 1.8 mg/dL 1.6-2.6 Sep 04, 2024 [...] Sep 03, 2024 11:10 AM Reporting Lab: [address] [address] Performing Lab: [address] [address] CREATININE 0.75 mg/dL 0.72-1.25 UREA NITROGEN 13 [...] n Type: CAPILLARY Comment: Test performed by: [id number] Meter #: [id number] Ordering Provider: FRANCK TURNER Report Released Date/Time: Sep 04, 2024 06:28 AM Reporting Lab: [address] [address] Performing Lab: [address] [address] GLUCOSE-HAND MONITOR 114 mg/dL H 71-99 Sep 03, 2024 05:19 PM [facility] GLUCOSE-HAND MONITOR CAPILLARY Specime n Type: CAPILLARY Comment: Test performed by: [id number] Meter #: [id number] Ordering Provider: FRANCK TURNER Report Released Date/Time: Sep 03, 2024 05:37 PM Reporting Lab: [address] [address] Performing Lab: [address] [address] GLUCOSE-HAND MONITOR 124 mg/dL H 71-99 Sep 03, 2024 04:41 PM [facility] GLUCOSE-HAND MONITOR CAPILLARY Specime n Type: CAPILLARY Comment: Test performed by: [id number] Meter #: [id number] Ordering Provider: FRANCK TURNER Report Released Date/Time: Sep 03, 2024 06:09 PM Reporting Lab: [address] [address] Performing Lab: [address] [address] GLUCOSE-HAND MONITOR 112 mg/dL H 71-99 Sep 03, 2024 01:35 PM [facility] URINE LYTES URINE Specimen Type : URINE Comment: ~Altered mental status with no identifiable cause Ordering Provider: FRANCK TURNER Report Released Date/Time: Sep 02, 2024 04:44 PM Reporting Lab: [address] [address] Performing Lab: [address] [address] SODIUM 130 mmol/L POTASSIUM 47.6 mmol/L CHLORIDE 137 mmol/L Sep 03, 2024 01:35 PM [facility] CREATININE URINE Specimen Type: URINE Comment: ~Altered mental status with no identifiable cause Ordering Provider: FRANCK TURNER Report Released Date/Time: Sep 02, 2024 04:44 PM Reporting Lab: [address] [address] Performing Lab: [address] [address] CREATININE 150.9 mg/dL Sep 03, 2024 01:35 PM [facility] OSMOLALITY URINE Specimen Type: URINE Comment: ~Altered mental status with no identifiable cause Ordering Provider: FRANCK TURNER Report Released Date/Time: Sep 02, 2024 04:44 PM Reporting Lab: [address] [address] Performing Lab: [address] [address] OSMOLALITY 522 mosm/kg 38-1400 Sep 03, 2024 01:35 PM [facility] URINALYSIS WITH REFLEX TO CULTURE URINE Specimen Type: URINE Comment: ~Altered mental status with no identifiable cause Ordering Provider: FRANCK TURNER Report Released Date/Time: Sep 02, 2024 04:44 PM Reporting Lab: [address] [address] Performing Lab: [address] [address] URINE COLOR Yellow Colorless-Yellow APPEARANCE CLOUDY H [...] Sep 02, 2024 04:44 PM Reporting Lab: [address] [address] Performing Lab: [place] [id number] UREA NITROGEN 320 mg/dL Sep 03, 2024 11:58 AM [facility] GLUCOSE-HAND MONITOR CAPILLARY Specime n Type: CAPILLARY Comment: AAMIR RN notified Test performed by: [id number] Meter #: [id number] Ordering Provider: FRANCK TURNER Report Released Date/Time: Sep 03, 2024 12:15 PM Reporting Lab: [address] [address] Performing Lab: [address] [address] GLUCOSE-HAND MONITOR 135 mg/dL H Sep 03, 2024 07:09 AM [facility] GLUCOSE-HAND MONITOR CAPILLARY Specime n Type: CAPILLARY Comment: Test performed by: [id number] Meter #: [id number] Ordering Provider: FRANCK TURNER Report Released Date/Time: Sep 03, 2024 07:26 AM Reporting Lab: [address] [address] Performing Lab: [address] [address] GLUCOSE-HAND MONITOR 120 mg/dL H Sep 03, 2024 07:05 AM [facility] CBC/PLT BLOOD Specimen Type: BLOOD No comment entered. Ordering Provider: FRANCK TURNER Report Released Date/Time: Sep 02, 2024 04:29 PM Reporting Lab: [address] [address] Performing Lab: [address] [address] WBC 6.9 10*3/uL 5.0-10.0 RBC 3.48 10*6/uL [...] Sep 02, 2024 04:29 PM Reporting Lab: [address] [address] Performing Lab: [address] [address] MAGNESIUM 1.7 mg/dL 1.6-2.6 Sep 03, 2024 [...] Sep 02, 2024 04:29 PM Reporting Lab: [address] [address] Performing Lab: [address] [address] CREATININE 0.82 mg/dL 0.72-1.25 UREA NITROGEN 12 [...] BLOOD Comment: Prediabetes: 5.7%-6.4% Diabetes: >= 6.5% [facility] guidelines for A1c interpretation: Glycemic control [...] 8.73 and 9.27. Ref: https://ngsp.org/CAPdata.asp. The in-house Legend of the Elf-watAgame D-100 analyzer has a historical CV <= 2%. Contact the laboratory for further performance characteristics of this assay. Ordering Provider: FRANCK TURNER Report Released Date/Time: Sep 02, 2024 04:29 PM Reporting Lab: [address] [address] Performing Lab: [place] [id number] GLYCOHEMOGLOBIN 5.6 4.4-5.6 Sep 03, 2024 07:05 AM [facility] OSMOLALITY SERUM Specimen Type: SERUM No comment entered. Ordering Provider: FRANCK TURNER Report Released Date/Time: Sep 02, 2024 04:44 PM Reporting Lab: [address] [address] Performing Lab: [address] [address] OSMOLALITY 271 mosm/kg L 280-300 Sep 02, 2024 08:15 PM [facility] GLUCOSE-HAND MONITOR CAPILLARY Specime n Type: CAPILLARY Comment: AAMIR RN notified Test performed by: [id number] Meter #: [id number] Ordering Provider: FRANCK TURNER Report Released Date/Time: Sep 02, 2024 08:57 PM Reporting Lab: [address] [address] Performing Lab: [address] [address] GLUCOSE-HAND MONITOR 126 mg/dL H 71-99 Sep [...] Sep 02, 2024 05:12 PM Reporting Lab: [address] [address] Performing Lab: [address] [address] MRSA SURVL NARES DNA Negative Negative Sep 02, 2024 05:36 PM [facility] GLUCOSE-HAND MONITOR CAPILLARY Specime n Type: CAPILLARY Comment: Test performed by: [id number] Meter #: [id number] Ordering Provider: FRANCK TURNER Report Released Date/Time: Sep 02, 2024 05:53 PM Reporting Lab: [address] [address] Performing Lab: [address] [address] GLUCOSE-HAND MONITOR 127 mg/dL H 71-99 Aug 29, 2024 10:04 PM [facility] URINALYSIS WITH REFLEX TO CULTURE URINE Specimen Type: URINE Comment: ~For Test: URINALYSIS WITH REFLEX TO CULTURE ~REORDER Ordering Provider: FELISA COLE Report Released Date/Time: Aug 29, 2024 09:36 PM Reporting Lab: [address] [address] Performing Lab: [address] [address] URINE COLOR Yellow Colorless-Yellow APPEARANCE Clear Clear [...] 0-28 Aug 29, 2024 08:32 PM [facility] HIGH SENSITIVITY TROPONIN I PLASMA Specimen [...] Aug 29, 2024 07:55 PM Reporting Lab: [address] [address] Performing Lab: [address] [address] HIGH SENSITIVITY TROPONIN I 7 4-35 Aug 29, 2024 08:32 PM [facility] CBC/PLT BLOOD Specimen Type: BLOOD No comment entered. Ordering Provider: FELISA COLE Report Released Date/Time: Aug 29, 2024 07:55 PM Reporting Lab: [address] [address] Performing Lab: [address] [address] WBC 11.2 10*3/uL H 5.0-10.0 RBC 3.97 [...] I information resource can be reached in [facility] in the Tools menu, under the Education [...] Aug 29, 2024 07:55 PM Reporting Lab: [address] [address] Performing Lab: [address] [address] CREATININE 0.85 mg/dL 0.72-1.25 UREA NITROGEN 15 [...] and tobacco- related health factors from the [place] facility where the Encounter took place. Current Smoking Status This section includes the most current smoking, or tobacco-related health factor, from the [place] facility where the Encounter took place. Date/Time Current Smoking Status Comment Facil ity Feb 06, 2024 10:00 AM VA-TOBACCO USER SOME DAYS [facility] Tobacco Use History This section includes a history of the smoking, or tobacco-related health factors, that were collected on or before the date of the Encounter. The data comes from the [place] facility where the Encounter took place. Date/Time Smoking Status/Tobacco Use Comment F acility Feb 06, 2024 10:00 AM VA-TOBACCO USE 30 YEARS OR MORE [facility] Feb 06, 2024 10:00 AM VA-TOBACCO USE ADVICE [facility] Feb 06, 2024 10:00 AM VA-TOBACCO USE GREASE RENDERER NO [facility] Feb 06, [...] this document. The data comes from all [facility]. Date Advance Directives Provider Source Mar 08, 2024 ADVANCE DIRECTIVE DISCUSSION [facility] Rad[facility] Reports: +/- 30 days [...] BRAIN W & W/O: LUIS MANUEL PERDOMO [id number] -1945 M Exm Date: SEP 06, 2024@13:40 Req Phys: FRANCK TURNER Pat Loc: 5-MED/TEL/09-06-2024@19:09 Img Loc: [facility] Service: [place] [address] (Case [id number] COMPLETE) MRI BRAIN W & W/O (MRI Detailed) CPT:86967 Contrast Media : Gadolinium Reason for Study: SEE CLINICAL HISTORY Pharmaceutical: GADOTERIDOL 279.3MG/ML 20ML INJ, 19ml Clinical History: MRI Screening (Required): IMPLANTED DEVICE DOCUMENTATION IMPLANTED DEVICE DOCUMENTATION NOT FOUND Does the [place] have any Cardiac Implants? None Does the have any implanted stimulators? None Does the [place] have cochlear implants? No Does the have Cerebral aneurysm clip(s)? I don't know Does the [place] have any shrapnel? I don't know If [...] 06, 2024 Date Verified: SEP 06, 2024 Bread Jockey E-Sig: Report: MRI brain without and with [...] ARCENIO LEYVA, Staff Radiologist Verified by veterinary milk specialist for ARCENIO LEYVA /ARCENIO [facility] Sep 06, 2024 01:40 PM MRI C SPINE W & W/ O CONTRAST(FURTHER SEQUENCES): LUIS MANUEL PERDOMO [id number] -1945 M Exm Date: SEP 06, 2024@13:40 Req Phys: FRANCK TURNER [facility] Loc: 5-MED/TEL/09-07-2024@06:42 Img Loc: [facility] Service: [place] [address] (Case [id number] COMPLETE) MRI C SPINE W & W/O CONTRAST(FURT(MRI Detailed) CPT:67241 Contrast Media : Gadolinium Reason for Study: [...] aneurysm clip(s)? I don't know Does the [place] have any shrapnel? I don't know If yes, where in your body? Please list other implants not listed above: MRI table has a weight limit of 551 lbs. [place]'s Weight: *212 lb [96.16 kg] (09/04/2024 05:19) Is this patient claustrophobic?: No REASON FOR EXAM: MULTIPLE SCLEROSIS (indicate suspected or established) PERTINENT PATIENT HISTORY: MS c/f flare Risk factors for GADOLINIUM NEPHROGENIC SYSTEMIC SCLEROSIS: Report Status: Verified Date Reported: SEP 07, 2024 Date Verified: SEP 07, 2024 Bread Jockey E-Sig: Report: EXAMINATION: MRI OF THE CERVICAL [...] Staff: HUANG TAI, Radiologist Verified by veterinary milk specialist for HUANG TAI /HUANG [facility] Sep 03, 2024 10:45 AM CHEST SINGLE(1) EW: LUIS MANUEL PERDOMO [id number] -1945 M Ex Date: SEP 03, 2024@10:45 Req Phys: ALSIP,FRANCK ROBERTDAVID [facility] Loc: 5-MED/TEL/09-03-2024@10:56 Img Loc: [facility] Service: [place] [address] (Case [id number] COMPLETE)CHEST SINGLE(1) VIEW (RAD Detailed) CPT:65147 Proc Modifiers : PORTABLE EXAM Reason for Study: Eval volume status Clinical History: Report Status: Verified Date Reported: SEP 03, 2024 Date Verified: SEP 03, 2024 Bread Jockey E-Sig: Report: EXAMINATION: SINGLE VIEW CHEST CLINICAL [...] Staff: HUANG TAI, Radiologist Verified by veterinary milk specialist for HUANG TAI /HUANG [facility] Aug 29, 2024 08:[address] HEAD W/O CONT: LUIS MANUEL PERDOMO [id number] -1945 M Exm Date: AUG 29, 2024@20:28 Req Phys: FELISA COLE Loc: ED/4P-12A (Req'g Loc) Img Loc: CT SCAN Service: [place] [address] (Case [id number] COMPLETE) CT HEAD W/O CONT (CT Detailed) CPT:84370 Reason for Study: SEE CLINICAL HISTORY Clinical History: REASON FOR SEND OUT: ATTENDING PHYSICIAN NAME: New transient neurological s/s - suspected TIA HISTORY/REASON FOR EXAM: confusion Report Status: Verified Date Reported: AUG 29, 2024 Date Verified: AUG 29, 2024 Bread Jockey E-Sig: Report: HISTORY confusion COMPARISON No prior [...] Staff: ABDIRAHMAN DAVIDSON, Staff Physician Verified by veterinary milk specialist for ABDIRAHMAN DAVIDSON /[facility] [...] [facility] [CLIA# [id number]] [address] [place] [id number] Accession [UID]: [id number] [[id number]] Received: Sep 03, 2024@14:02 Collection sample: URINE, [...] [facility] [CLIA# [id number]] [address] [place] [phone] MAG[facility]RESE [facility] Sep 02, 2024 06:00 PM LR MICROBIOLOGY RE PORT: Reporting Lab: [facility] [CLIA# [id number]] [address] [place] [id number] Accession [UID]: [id number] [[id number]] Received: Sep 02, 2024@18:07 Collection sample: BLD CULTURE BOTTLES Collection date: Sep 02, 2024 18:00 Site/Specimen: BLOOD Provider: FRANCK TURNER Comment on specimen: L HAND Test(s) ordered: CULTURE, BLOOD................ completed: Sep 08, 2024 * BACTERIOLOGY FINAL REPORT => Sep 08, 2024 08:25 [facility] CODE: [id number] Bacteriology Remark(s): Blood culture status=NO GROWTH (unless notified otherwise) 09/03/2024 AEROBIC: NO GROWTH ANAEROBIC: NO GROWTH =--=--=--=--=--=--=--=--=--=-- =--=--=--=--=--=--=--=--=--=-- =--=--=--=--=--=-- Performing Laboratory: Bacteriology Report Performed By: [facility] [CLIA# [id number]] [address] [place] [id number] MAGDY CALABRESE [facility] Aug 29, 2024 10:18 PM LR MICROBIOLOGY RE PORT: Reporting Lab: [facility] [CLIA# [id number]] [address] [place] [id number] Accession [UID]: [id number] [[id number]] Received: Aug 29, 2024@22:18 Collection sample: URINE, CLEAN CATCH Collection date: Aug 29, 2024 22:18 Site/Specimen: URINE Provider: FELISA COLE Test(s) ordered: CULTURE, URINE................ completed: Aug 31, 2024 09:51 * BACTERIOLOGY FINAL REPORT => Aug 31, 2024 09:51 TECH CODE: [id number] Bacteriology Remark(s): NO GROWTH 08/30/2024 <10,000 CFU/ML. 08/31/2024 =--=--=--=--=--=--=--=--=--=-- =--=--=--=--=--=--=--=--=--=-- =--=--=--=--=--=-- Performing Laboratory: Bacteriology Report Performed By: [facility] [CLIA# [id number]] [address] [place] [address] [facility]
--- OUTSIDE RECORDS SUMMARY | 2024-09-08 01:31 | XMS_ITS ---
[place] DAILY HOSPITALIZATION DATA [facility] Encounter Summary Created on: September 22, 2024 LUIS MANUEL PERDOMO : 1945 Sex: Male Author Name [facility] Address [address] [place] [address] Care Team Providers Care Reporting Process Consultant Name Role Phone YULISSA HENDERSON Primary Care [...] PLAN F Mar 24, 2014 PLAN F [id number] LUIS MANUEL PERDOMO PATIENT [facility] [place] [facility] PREFERRED PROVIDER ORGANIZAT ION (PPO) [facility] SLE Sep 21, 2012 [id number] LUIS MANUEL PERDOMO PATIENT [employer] ([id number]) PRESCRIPT ION WL3A Sep 21, 2012 [id number] LUIS MANUEL PERDOMO PATIENT MEDICARE (WNR) MEDICARE (M) PART B Sep 21, 2012 PART B [id number] NOEMI PERDOMO PATIENT MEDICARE (WNR) MEDICARE (M) PART A Jan 22, 2011 PART A [id number] LEANNE, NOEMI PATIENT MEDICARE PART D (WNR) MEDICARE (M) PART D Mar 24, 2014 PART D [id number] LUIS MANUEL PERDOMO PATIENT Selected Encounter This section includes the information on record at [place] for the Encounter. Date/Time Encounter Type Encounter Description Reason Pro vider Source Sep 08, 2024 05:31 AM Inpatient Visit DAILY HOSPITALIZATION DATA [facility] Encounter Template Text not used by [place] Plan of Treatment: Future Appointments (+ 6 months) and Future Tests (+/- 45 days) The Plan of Treatment section includes [place] care activities [place] the [place] [facility] [place] [facility]. This section includes future appointments and future [...] 13, 2024 08:00 AM AMBULATORY - NONE [facility] Sep 30, 2024 01:30 PM [...] of theEncounter. The data comes from all [facility] facilities. Test Date/Time Test Type Test Details Facility Name Sep 13, 2024 01:33 PM Consult Order [facility] SKILL[facility] CARE Cons Head Of Design's Choice [facility] Lab Results: +/- 30 [...] Specimen Type: CAPILLARY Comment: Test performed by: [id number] Meter #: [id number] Ordering Provider: FRANCK TURNER Report Released Date/Time: Sep 09, 2024 12:33 PM Reporting Lab: [address] [address] Performing Lab: [address] [address] GLUCOSE-HAND MONITOR 116 mg/dL H Sep 09, 2024 06:07 AM [facility] GLUCOSE-HAND MONITOR CAPILLARY Specime n Type: CAPILLARY Comment: Test performed by: [id number] Meter #: [id number] Ordering Provider: FRANCK TURNER Report Released Date/Time: Sep 09, 2024 08:17 AM Reporting Lab: [address] [address] Performing Lab: [address] [address] GLUCOSE-HAND MONITOR 112 mg/dL H Sep 08, 2024 09:13 PM [facility] GLUCOSE-HAND MONITOR CAPILLARY Specime n Type: CAPILLARY Comment: Test performed by: [id number] Meter #: [id number] Ordering Provider: FRANCK TURNER Report Released Date/Time: Sep 08, 2024 09:31 PM Reporting Lab: [address] [address] Performing Lab: [address] [address] GLUCOSE-HAND MONITOR 107 mg/dL H Sep 08, 2024 03:49 PM [facility] GLUCOSE-HAND MONITOR CAPILLARY Specime n Type: CAPILLARY Comment: AAMIR RN notified Test performed by: [id number] Meter #: [id number] Ordering Provider: FRANCK TURNER Report Released Date/Time: Sep 08, 2024 04:33 PM Reporting Lab: [address] [address] Performing Lab: [address] [address] GLUCOSE-HAND MONITOR 162 mg/dL H Sep 08, 2024 11:43 AM [facility] GLUCOSE-HAND MONITOR CAPILLARY Specime n Type: CAPILLARY Comment: AAMIR RN notified Test performed by: [id number] Meter #: [id number] Ordering Provider: FRANCK TURNER Report Released Date/Time: Sep 08, 2024 12:03 PM Reporting Lab: [address] [address] Performing Lab: [address] [address] GLUCOSE-HAND MONITOR 133 mg/dL H Sep 08, 2024 06:13 AM [facility] GLUCOSE-HAND MONITOR CAPILLARY Specime n Type: CAPILLARY Comment: Test performed by: [id number] Meter #: [id number] Ordering Provider: FRANCK TURNER Report Released Date/Time: Sep 08, 2024 06:46 AM Reporting Lab: [address] [address] Performing Lab: [address] [address] GLUCOSE-HAND MONITOR 104 mg/dL H Sep 07, 2024 07:59 PM [facility] GLUCOSE-HAND MONITOR CAPILLARY Specime n Type: CAPILLARY Comment: Test performed by: [id number] Meter #: [id number] Ordering Provider: FRANCK TURNER Report Released Date/Time: Sep 07, 2024 09:05 PM Reporting Lab: [address] [address] Performing Lab: [address] [address] GLUCOSE-HAND MONITOR 107 mg/dL H Sep 07, 2024 04:39 PM [facility] GLUCOSE-HAND MONITOR CAPILLARY Specime n Type: CAPILLARY Comment: Test performed by: [id number] Meter #: [id number] Ordering Provider: FRANCK TURNER Report Released Date/Time: Sep 07, 2024 05:09 PM Reporting Lab: [address] [address] Performing Lab: [address] [address] GLUCOSE-HAND MONITOR 105 mg/dL H Sep 07, 2024 11:41 AM [facility] GLUCOSE-HAND MONITOR CAPILLARY Specime n Type: CAPILLARY Comment: Test performed by: [id number] Meter #: [id number] Ordering Provider: FRANCK TURNER Report Released Date/Time: Sep 07, 2024 12:41 PM Reporting Lab: [address] [address] Performing Lab: [address] [address] GLUCOSE-HAND MONITOR 144 mg/dL H Sep 07, 2024 05:56 AM [facility] GLUCOSE-HAND MONITOR CAPILLARY Specime n Type: CAPILLARY Comment: Test performed by: [id number] Meter #: [id number] Ordering Provider: FRANCK TURNER Report Released Date/Time: Sep 07, 2024 06:31 AM Reporting Lab: [address] [address] Performing Lab: [address] [address] GLUCOSE-HAND MONITOR 96 mg/dL Sep 06, 2024 08:10 PM [facility] GLUCOSE-HAND MONITOR CAPILLARY Specime n Type: CAPILLARY Comment: Test performed by: [id number] Meter #: [id number] Ordering Provider: FRANCK TURNER Report Released Date/Time: Sep 06, 2024 08:52 PM Reporting Lab: [address] [address] Performing Lab: [address] [address] GLUCOSE-HAND MONITOR 124 mg/dL H Sep 06, 2024 04:27 PM [facility] GLUCOSE-HAND MONITOR CAPILLARY Specime n Type: CAPILLARY Comment: Test performed by: [id number] Meter #: [id number] Ordering Provider: FRANCK TURNER Report Released Date/Time: Sep 06, 2024 05:15 PM Reporting Lab: [address] [address] Performing Lab: [address] [address] GLUCOSE-HAND MONITOR 107 mg/dL H Sep 06, 2024 12:12 PM [facility] GLUCOSE-HAND MONITOR CAPILLARY Specime n Type: CAPILLARY Comment: Test performed by: [id number] Meter #: [id number] Ordering Provider: FRANCK TURNER Report Released Date/Time: Sep 06, 2024 12:29 PM Reporting Lab: [address] [address] Performing Lab: [address] [address] GLUCOSE-HAND MONITOR 181 mg/dL H -Sep 06, 2024 06:13 AM [facility] GLUCOSE-HAND MONITOR CAPILLARY Specime n Type: CAPILLARY Comment: Test performed by: [id number] Meter #: [id number] Ordering Provider: FRANCK TURNER Report Released Date/Time: Sep 06, 2024 06:36 AM Reporting Lab: [address] [address] Performing Lab: [address] [address] GLUCOSE-HAND MONITOR 102 mg/dL H Sep 05, 2024 08:47 PM [facility] GLUCOSE-HAND MONITOR CAPILLARY Specime n Type: CAPILLARY Comment: Test performed by: [id number] Meter #: [id number] Ordering Provider: FRANCK TURNER Report Released Date/Time: Sep 06, 2024 02:13 AM Reporting Lab: [address] [address] Performing Lab: [address] [address] GLUCOSE-HAND MONITOR 103 mg/dL H Sep 05, 2024 04:40 PM [facility] GLUCOSE-HAND MONITOR CAPILLARY Specime n Type: CAPILLARY Comment: AAMIR RN notified Test performed by: [id number] Meter #: [id number] Ordering Provider: FRANCK TURNER Report Released Date/Time: Sep 05, 2024 05:11 PM Reporting Lab: [address] [address] Performing Lab: [address] [address] GLUCOSE-HAND MONITOR 113 mg/dL H Sep 05, 2024 12:06 PM [facility] GLUCOSE-HAND MONITOR CAPILLARY Specime n Type: CAPILLARY Comment: Test performed by: [id number] Meter #: [id number] Ordering Provider: FRANCK TURNER Report Released Date/Time: Sep 05, 2024 12:23 PM Reporting Lab: [address] [address] Performing Lab: [address] [address] GLUCOSE-HAND MONITOR 115 mg/dL H Sep 05, 2024 06:26 AM [facility] GLUCOSE-HAND MONITOR CAPILLARY Specime n Type: CAPILLARY Comment: AAMIR Correction Dose Test performed by: [id number] Meter #: [id number] Ordering Provider: FRANCK TURNER Report Released Date/Time: Sep 05, 2024 06:43 AM Reporting Lab: [address] [address] Performing Lab: [address] [address] GLUCOSE-HAND MONITOR 111 mg/dL H Sep 04, 2024 08:59 PM [facility] GLUCOSE-HAND MONITOR CAPILLARY Specime n Type: CAPILLARY Comment: AAMIR RN notified Test performed by: [id number] Meter #: [id number] Ordering Provider: FRANCK TURNER Report Released Date/Time: Sep 04, 2024 09:36 PM Reporting Lab: [address] [address] Performing Lab: [address] [address] GLUCOSE-HAND MONITOR 123 mg/dL H Sep 04, 2024 04:41 PM [facility] GLUCOSE-HAND MONITOR CAPILLARY Specime n Type: CAPILLARY Comment: AAMIR RN notified Test performed by: [id number] Meter #: [id number] Ordering Provider: FRANCK TURNER Report Released Date/Time: Sep 04, 2024 05:03 PM Reporting Lab: [address] [address] Performing Lab: [address] [address] GLUCOSE-HAND MONITOR 118 mg/dL H Sep 04, 2024 12:36 PM [facility] GLUCOSE-HAND MONITOR CAPILLARY Specime n Type: CAPILLARY Comment: AAMIR RN notified Test performed by: [id number] Meter #: [id number] Ordering Provider: FRANCK TURNER Report Released Date/Time: Sep 04, 2024 12:53 PM Reporting Lab: [address] [address] Performing Lab: [place] [address] GLUCOSE-HAND MONITOR 129 mg/dL H 71-99 Sep 04, 2024 12:03 PM [facility] RESPIRATORY VIRUS PANEL (BIOFIRE) NASOPHARYN X Specimen Type: NASOPHARYNX Comment: ~For Test: RESPIRATORY VIRUS PANEL (BIOFIRE) ~ORDER READ BACK TO: FRANCK TURNER 09/04/24@11:30 Ordering Provider: FRANCK TURNER Report Released Date/Time: Sep 04, 2024 11:33 AM Reporting Lab: [place] [phone] Performing Lab: [place] [phone] ADENOVIRUS (BIOFIRE) Not Detected -Not D etected [...] -Not Detected Sep 04, 2024 06:55 AM [facility] MAGNESIUM PLASMA Specimen Type: PLASM [...] Lab: [place] [facility] [address] [facility] [address] Performing Lab: [place] [address] [facility] [address] MAGNESIUM 1.8 mg/dL 1.6-2.6 Sep 04, 2024 06:55 AM [facility] PANEL 1 PLASMA Specimen Type: [...] 03, 2024 11:10 AM Reporting Lab: [address] [address] Performing Lab: [address] CREATININE 0.75 mg/dL 0.72-1.25 UREA NITROGEN 13 mg/dL 9-25 GLUCOSE 105 mg/dL H 74-100 SODIUM 128 mmol/L L 136-145 POTASSIUM 3.9 mmol/L 3.5-5.1 CHLORIDE 99 mmol/L 98-107 CO2 21 mmol/L L 22-29 CALCIUM 8.0 mg/dL L 8.4-10.2 ANION GAP 8 meq/L 3-19 eGFR (CKD-EPI) >90 Sep 04, 2024 06:02 AM [facility] GLUCOSE-HAND MONITOR CAPILLARY Specime n Type: CAPILLARY Comment: Test performed by: [id number] Meter #: [id number] Ordering Provider: FRANCK TURNER Report Released Date/Time: Sep 04, 2024 06:28 AM Reporting Lab: [address] Performing Lab: [address] GLUCOSE-HAND MONITOR 114 mg/dL H 71-99 Sep 03, 2024 05:19 PM [facility] GLUCOSE-HAND MONITOR CAPILLARY Specime n Type: CAPILLARY Comment: Test performed by: [id number] Meter #: [id number] Ordering Provider: FRANCK TURNER Report Released Date/Time: Sep 03, 2024 05:37 PM Reporting Lab: [address] Performing Lab: [address] [address] GLUCOSE-HAND MONITOR 124 mg/dL H 71-99 Sep 03, 2024 04:41 PM [facility] GLUCOSE-HAND MONITOR CAPILLARY Specime n Type: CAPILLARY Comment: Test performed by: [id number] Meter #: [id number] Ordering Provider: FRANCK TURNER Report Released Date/Time: Sep 03, 2024 06:09 PM Reporting Lab: [address] [address] Performing Lab: [address] [address] GLUCOSE-HAND MONITOR 112 mg/dL H 71-99 Sep 03, 2024 01:35 PM [facility] URINE LYTES URINE Specimen Type : URINE Comment: ~Altered mental status with no identifiable cause Ordering Provider: FRANCK TURNER Report Released Date/Time: Sep 02, 2024 04:44 PM Reporting Lab: [address] [address] Performing Lab: [address] [address] SODIUM 130 mmol/L POTASSIUM 47.6 mmol/L CHLORIDE 137 mmol/L Sep 03, 2024 01:35 PM [facility] CREATININE URINE Specimen Type: URINE Comment: ~Altered mental status with no identifiable cause Ordering Provider: FRANCK TURNER Report Released Date/Time: Sep 02, 2024 04:44 PM Reporting Lab: [address] [address] Performing Lab: [address] [address] CREATININE 150.9 mg/dL Sep 03, 2024 01:35 PM [facility] UREA NITROGEN URINE Specimen Type : URINE Comment: ~Altered mental status with no identifiable cause Ordering Provider: FRANCK TURNER Report Released Date/Time: Sep 02, 2024 04:44 PM Reporting Lab: [address] [address] Performing Lab: [address] [address] UREA NITROGEN 320 mg/dL Sep 03, 2024 01:35 PM [facility] URINALYSIS WITH REFLEX TO CULTURE URINE Specimen Type: URINE Comment: ~Altered mental status with no identifiable cause Ordering Provider: FRANCK TURNER Report Released Date/Time: Sep 02, 2024 04:44 PM Reporting Lab: [address] [address] Performing Lab: [address] [address] URINE COLOR Yellow Colorless-Yellow APPEARANCE CLOUDY H [...] H 0-28 Sep 03, 2024 01:35 PM [facility] OSMOLALITY URINE Specimen Type: URINE Comment: ~Altered mental status with no identifiable cause Ordering Provider: FRANCK TURNER Report Released Date/Time: Sep 02, 2024 04:44 PM Reporting Lab: [place] [phone] Performing Lab: [place] [phone] OSMOLALITY 522 mosm/kg 38-1400 Sep 03, 2024 11:58 AM [facility] GLUCOSE-HAND MONITOR CAPILLARY Specime n Type: CAPILLARY Comment: AAMIR RN notified Test performed by: [id number] Meter #: [id number] Ordering Provider: FRANCK TURNER Report Released Date/Time: Sep 03, 2024 12:15 PM Reporting Lab: [address] [address] Performing Lab: [address] [address] GLUCOSE-HAND MONITOR 135 mg/dL H Sep 03, 2024 07:09 AM [facility] GLUCOSE-HAND MONITOR CAPILLARY Specime n Type: CAPILLARY Comment: Test performed by: [id number] Meter #: [id number] Ordering Provider: FRNACK TURNER Report Released Date/Time: Sep 03, 2024 07:26 AM Reporting Lab: [address] [address] Performing Lab: [address] [address] GLUCOSE-HAND MONITOR 120 mg/dL H Sep 03, 2024 07:05 AM [facility] CBC/PLT BLOOD Specimen Type: BLOOD No comment entered. Ordering Provider: FRANCK TURNER Report Released Date/Time: Sep 02, 2024 04:29 PM Reporting Lab: [address] [address] Performing Lab: [address] [address] WBC 6.9 10*3/uL 5.0-10.0 RBC 3.48 10*6/uL L 4.6-6.2 HGB 9.5 g/dL L 14.0-18.0 HCT 29.1 L 42.0-52.0 MCV 83.6 fL 80.0-94.0 MCH 27.3 pg 27.0-31.0 MCHC 32.6 g/dL 32.0-36.0 PLT 258 10*3/uL 150-450 MPV 10.3 fL 9.0-13.1 RDW 14.8 11.0-16.0 NRBC 0.0 0.0-0.0 Sep 03, 2024 07:05 AM [facility] MAGNESIUM PLASMA Specimen Type: PLASM [...] Sep 02, 2024 04:29 PM Reporting Lab: [address] [address] Performing Lab: [address] [address] MAGNESIUM 1.7 mg/dL 1.6-2.6 Sep 03, 2024 07:05 AM [facility] PANEL 1 PLASMA Specimen Type: [...] Sep 02, 2024 04:29 PM Reporting Lab: [address] [address] Performing Lab: [address] [address] CREATININE 0.82 mg/dL 0.72-1.25 UREA NITROGEN 12 mg/dL 9-25 GLUCOSE 109 mg/dL H 74-100 SODIUM 129 mmol/L L 136-145 POTASSIUM 4.2 mmol/L 3.5-5.1 CHLORIDE 99 mmol/L 98-107 CO2 21 mmol/L L 22-29 CALCIUM 8.1 mg/dL L 8.4-10.2 ANION GAP 9 meq/L 3-19 eGFR (CKD-EPI) 90 Sep 03, 2024 07:05 AM [facility] GLYCOHEMOGLOBIN BLOOD Specimen Type: BLOOD Comment: Prediabetes: 5.7%-6.4% Diabetes: >= 6.5% [facility] guidelines for A1c [...] 8.73 and 9.27. Ref: https://ngsp.org/CAPdata.asp. The in-house [employer]-cheerapp D-100 analyzer has a historical CV <= 2%. Contact the laboratory for further performance characteristics of this assay. Ordering Provider: FRANCK TURNER Report Released Date/Time: Sep 02, 2024 04:29 PM Reporting Lab: [address] [address] Performing Lab: [place] [phone] GLYCOHEMOGLOBIN 5.6 4.4-5.6 Sep 03, 2024 07:05 AM [facility] OSMOLALITY SERUM Specimen Type: SERUM No comment entered. Ordering Provider: FRANCK TURNER Report Released Date/Time: Sep 02, 2024 04:44 PM Reporting Lab: [address] [address] Performing Lab: [address] [address] OSMOLALITY 271 mosm/kg L 280-300 Sep 02, 2024 08:15 PM [facility] GLUCOSE-HAND MONITOR CAPILLARY Specime n Type: CAPILLARY Comment: AAMIR DEXTER notified Test performed by: [id number] Meter #: [id number] Ordering Provider: FRANCK TURNER Report Released Date/Time: Sep 02, 2024 08:57 PM Reporting Lab: [address] [address] Performing Lab: [address] [address] GLUCOSE-HAND MONITOR 126 mg/dL H 71-99 Sep 02, 2024 06:10 PM [facility] MRSA SURVL NARES DNA NARES [...] Sep 02, 2024 05:12 PM Reporting Lab: [address] [address] Performing Lab: [address] [address] MRSA SURVL NARES DNA Negative Negative Sep 02, 2024 05:36 PM [facility] GLUCOSE-HAND MONITOR CAPILLARY Specime n Type: CAPILLARY Comment: Test performed by: [id number] Meter #: [id number] Ordering Provider: FRANCK TURNER Report Released Date/Time: Sep 02, 2024 05:53 PM Reporting Lab: [address] [address] Performing Lab: [address] [address] GLUCOSE-HAND MONITOR 127 mg/dL H 71-99 Aug 29, 2024 10:04 PM [facility] URINALYSIS WITH REFLEX TO CULTURE URINE Specimen Type: URINE Comment: ~For Test: URINALYSIS WITH REFLEX TO CULTURE ~REORDER Ordering Provider: FELISA COLE Report Released Date/Time: Aug 29, 2024 09:36 PM Reporting Lab: [address] [address] Performing Lab: [address] [address] URINE COLOR Yellow Colorless-Yellow APPEARANCE Clear Clear [...] Aug 29, 2024 07:55 PM Reporting Lab: [address] [address] Performing Lab: [address] [address] HIGH SENSITIVITY TROPONIN I 7 4-35 Aug 29, 2024 08:32 PM [facility] CBC/PLT BLOOD Specimen Type: BLOOD No comment entered. Ordering Provider: FELISA COLE Report Released Date/Time: Aug 29, 2024 07:55 PM Reporting Lab: [address] [address] Performing Lab: [address] [address] WBC 11.2 10*3/uL H 5.0-10.0 RBC 3.97 [...] Aug 29, 2024 07:55 PM Reporting Lab: [address] [address] Performing Lab: [address] [address] CREATININE 0.85 mg/dL 0.72-1.25 UREA NITROGEN 15 [...] Height Weight Body Mass Index Source Sep 08, 2024 09:10 PM 97.4 F 66 /min 164/77 mm[Hg] 18 /min 96 % 0 [place] Sep 08, 2024 09:03 PM 0 [place] [facility] Sep 08, 2024 03:46 PM 97.7 F 76 /min 148/70 mm[Hg] 16 /min 96 % 0 [place] [facility] Sep 08, 2024 11:42 AM 97.4 F 67 /min 125/69 mm[Hg] 92 % [place] [facility] Sep 08, 2024 09:30 AM 0 [place] [facility] Advance [...] 08, 2024 ADVANCE DIRECTIVE DISCUSSION [facility] Radiology Reports: +/- 30 days of the [...] BRAIN W & W/O: LUIS MANUEL PERDOMO [id number] -1945 M Exm Date: SEP 06, 2024@13:40 Req Phys: FRANCK TURNER [facility] Loc: 5-MED/TEL/09-06-2024@19:09 Img Loc: [facility] Service: [place] [address] (Case [id number] COMPLETE) MRI BRAIN W & W/O (MRI Detailed) CPT:51036 Contrast Media : Gadolinium Reason for Study: SEE CLINICAL HISTORY Pharmaceutical: GADOTERIDOL 279.3MG/ML 20ML INJ, 19ml Clinical History: MRI Screening (Required): IMPLANTED DEVICE DOCUMENTATION IMPLANTED DEVICE DOCUMENTATION NOT FOUND Does the [place] have any Cardiac Implants? None Does the have any implanted stimulators? None Does the [place] have cochlear implants? No Does the have Cerebral aneurysm clip(s)? I don't know Does the [place] have any shrapnel? I don't know If [...] 06, 2024 Date Verified: SEP 06, 2024 Dairy Processing Equipment Operator E-Sig: Report: MRI brain without and [...] Staff: ARCENIO LEYVA, Staff Radiologist Verified by photo lab technician for ARCENIO LEYVA /ARCENIO AVILA-[facility] Sep 06, 2024 01:40 PM MRI C SPINE W & W/ O CONTRAST(FURTHER SEQUENCES): LUIS MANUEL PERDOMO [id number] -1945 M Exm Date: SEP 06, 2024@13:40 Req Phys: FRANCK TURNER Pat Loc: 5-MED/TEL/09-07-2024@06:42 Img Loc: [facility] Service: [place] [address] (Case [id number] COMPLETE) MRI C SPINE W & W/O CONTRAST(FURT(MRI Detailed) CPT:89114 Contrast Media : Gadolinium Reason for Study: SEE CLINICAL HISTORY Pharmaceutical: GADOTERIDOL 279.3MG/ML 20ML INJ, 19ml Clinical History: STATUS OF PLAIN FILMS:Not performed (Provide justification for MR W/O prior plain films below.) MRI for MS MRI Screening (Required): IMPLANTED DEVICE DOCUMENTATION IMPLANTED DEVICE DOCUMENTATION NOT FOUND Does the [place] have any Cardiac Implants? None Does the [place] have any implanted stimulators? None Does the have cochlear implants? No Does the [place] have Cerebral aneurysm clip(s)? I don't know Does the [place] have any shrapnel? I don't know If [...] 07, 2024 Date Verified: SEP 07, 2024 Dairy Processing Equipment Operator E-Sig: Report: EXAMINATION: MRI OF THE [...] Interpreting Staff: HUANG TAI, Radiologist Verified by photo lab technician for HUANG TAI /HUANG WHEATLEY-Sav [facility] Sep 03, 2024 10:45 AM CHEST SINGLE(1) EW: LUIS MANUEL PERDOMO [id number] -1945 M Exm Date: SEP 03, 2024@10:45 Req Phys: FRANCK TURNER Pat Loc: 5-MED/TEL/09-03-2024@10:56 Img Loc: [facility] RADIOLOGY Service: [place] [address] (Case [id number] COMPLETE)CHEST SINGLE(1) VIEW (RAD Detailed) CPT:40742 Proc Modifiers : PORTABLE EXAM Reason for Study: Eval volume status Clinical History: Report Status: Verified Date Reported: SEP 03, 2024 Date Verified: SEP 03, 2024 Dairy Processing Equipment Operator E-Sig: Report: EXAMINATION: SINGLE VIEW CHEST [...] Interpreting Staff: HUANG TAI, Radiologist Verified by photo lab technician for HUANG TAI /HUANG WHEATLEY-[facility] Aug 29, 2024 08:[address] HEAD W/O CONT: LUIS MANUEL PERDOMO [id number] -1945 M Exm Date: AUG 29, 2024@20:28 Req Phys: FELISA COLE Loc: ED/4P-12A (Req'g Loc) Img Loc: CT SCAN Service: Unknown [place] [id number] (Case [id number] COMPLETE) CT HEAD W/O CONT (CT Detailed) CPT:00277 Reason for Study: SEE CLINICAL HISTORY Clinical History: REASON FOR SEND OUT: ATTENDING PHYSICIAN NAME: New transient neurological s/s - suspected TIA HISTORY/REASON FOR EXAM: confusion Report Status: Verified Date Reported: AUG 29, 2024 Date Verified: AUG 29, 2024 Dairy Processing Equipment Operator E-Sig: Report: HISTORY confusion COMPARISON No [...] Staff: ABDIRAHMAN CROW, Staff Physician Verified by photo lab technician for ABDIRAHMAN CROW /ABDIRAHMAN [facility] Pathology Reports: +/- 30 [...] RE PORT: Reporting Lab: [facility] [CLIA# [id number]] [address] [place] [id number] Accession [UID]: [id number] [[id number]] Received: Sep 03, 2024@14:02 Collection sample: URINE, [...] Bacteriology Report Performed By: [facility] [CLIA# [id number]] [address] [place] [id number] BHARATI,MAGDY D [facility] Sep 02, 2024 06:00 PM LR MICROBIOLOGY RE PORT: Reporting Lab: [facility] [CLIA# [id number]] [address] [place] [address] Accession [UID]: [id number] [[id number]] Received: Sep 02, 2024@18:07 Collection sample: BLD CULTURE BOTTLES Collection date: Sep 02, 2024 18:00 Site/Specimen: BLOOD Provider: FRANCK TURNER Comment on specimen: L HAND Test(s) ordered: CULTURE, BLOOD................ completed: Sep 08, 2024 * BACTERIOLOGY FINAL REPORT => Sep 08, 2024 08:25 TECH CODE: [id number] Bacteriology Remark(s): Blood culture status=NO GROWTH (unless notified otherwise) 09/03/2024 AEROBIC: NO GROWTH ANAEROBIC: NO GROWTH =--=--=--=--=--=--=--=--=--=-- =--=--=--=--=--=--=--=--=--=-- =--=--=--=--=--=-- Performing Laboratory: Bacteriology Report Performed By: [facility] [CLIA# [id number]] [address] [place], [place] [id number] MAGDY CALABRESE [facility] Aug 29, 2024 10:18 PM LR MICROBIOLOGY RE PORT: Reporting Lab: [facility] [CLIA# [id number]] [address] [place], [place] [id number] Accession [UID]: [id number] [[id number]] Received: Aug 29, 2024@22:18 Collection sample: URINE, CLEAN CATCH Collection date: Aug 29, 2024 22:18 Site/Specimen: URINE Provider: FELISA COLE Test(s) ordered: CULTURE, URINE................ completed: Aug 31, 2024 09:51 * BACTERIOLOGY FINAL REPORT => Aug 31, 2024 09:51 TECH CODE: [id number] Bacteriology Remark(s): NO GROWTH 08/30/2024 <10,000 CFU/ML. 08/31/2024 =--=--=--=--=--=--=--=--=--=-- =--=--=--=--=--=--=--=--=--=-- =--=--=--=--=--=-- Performing Laboratory: Bacteriology Report Performed By: [facility] [CLIA# [id number]] [address] [place] [address] MAGDY CALABRESE-Sav [facility]
--- OUTSIDE RECORDS SUMMARY | 2024-09-08 01:32 | XMS_ITS ---
NE DAILY HOSPITALIZATION DATA [facility] Encounter Summary Created on: September 22, 2024 LUIS MANUEL PERDOMO : 1945 Sex: Male Author Name [facility] Organization [facility] Address [address] [place] [address] Care Team Providers Care Welding Technician Name Role Phone YULISSA HENDERSON Primary [...] PLAN F Mar 24, 2014 PLAN F [id number] LUIS MANUEL PERDOMO PATIENT [facility] [place] [facility] PREFERRED PROVIDER ORGANIZAT ION (PPO) [facility] Sep 21, 2012 [id number] [phone] LUIS MANUEL PERDOMO PATIENT [employer] ([id number]) PRESCRIPT ION WL3A Sep 21, 2012 [id number] LUIS MANUEL PERDOMO PATIENT MEDICARE (WNR) MEDICARE (M) PART B Sep 21, 2012 PART B [id number] NOEMI PERDOMO PATIENT MEDICARE (WNR) MEDICARE (M) PART A Jan 22, 2011 PART A [id number] LEANNE, NOEMI PATIENT MEDICARE PART D (WNR) MEDICARE (M) PART D Mar 24, 2014 PART D [id number] LUIS MANUEL PERDOMO PATIENT Selected Encounter This section includes the information on record at NE for the Encounter. Date/Time Encounter Type Encounter Description Reason Pro vider Source Sep 08, 2024 05:32 AM Inpatient Visit DAILY HOSPITALIZATION DATA [facility] Encounter Template Text not used by NE Plan of Treatment: Future Appointments (+ 6 months) and Future Tests (+/- 45 days) The Plan of Treatment section includes future care activities for the [facility] This section includes future [...] Sep 13, 2024 01:33 PM Consult Order [facility] SKILLED HOME CARE Cons Agriculture Teacher's Choice [facility] Lab Results: +/- [...] Type Comment Sep 09, 2024 12:16 PM [facility] GLUCOSE-HAND MONITOR CAPILLARY Specimen Type: CAPILLARY Comment: Test performed by: [id number] Meter #: [id number] Ordering Provider: FRANCK TURNER Report Released Date/Time: Sep 09, 2024 12:33 PM Reporting Lab: [address] [address] Performing Lab: [address] [address] GLUCOSE-HAND MONITOR 116 mg/dL H Sep 09, 2024 06:07 AM [facility] GLUCOSE-HAND MONITOR CAPILLARY Specime n Type: CAPILLARY Comment: Test performed by: [id number] Meter #: [id number] Ordering Provider: FRANCK TURNER Report Released Date/Time: Sep 09, 2024 08:17 AM Reporting Lab: [address] [address] Performing Lab: [address] [address] GLUCOSE-HAND MONITOR 112 mg/dL H Sep 08, 2024 09:13 PM [facility] GLUCOSE-HAND MONITOR CAPILLARY Specime n Type: CAPILLARY Comment: Test performed by: [id number] Meter #: [id number] Ordering Provider: FRANCK TURNER Report Released Date/Time: Sep 08, 2024 09:31 PM Reporting Lab: [address] [address] Performing Lab: [address] [address] GLUCOSE-HAND MONITOR 107 mg/dL H Sep 08, 2024 03:49 PM [facility] GLUCOSE-HAND MONITOR CAPILLARY Specime n Type: CAPILLARY Comment: AAMIR RN notified Test performed by: [id number] Meter #: [id number] Ordering Provider: FRANCK TURNER Report Released Date/Time: Sep 08, 2024 04:33 PM Reporting Lab: [address] [address] Performing Lab: [address] [address] GLUCOSE-HAND MONITOR 162 mg/dL H Sep 08, 2024 11:43 AM [facility] GLUCOSE-HAND MONITOR CAPILLARY Specime n Type: CAPILLARY Comment: AAMIR RN notified Test performed by: [id number] Meter #: [id number] Ordering Provider: FRANCK TURNER Report Released Date/Time: Sep 08, 2024 12:03 PM Reporting Lab: [address] [address] Performing Lab: [address] [address] GLUCOSE-HAND MONITOR 133 mg/dL H Sep 08, 2024 06:13 AM [facility] GLUCOSE-HAND MONITOR CAPILLARY Specime n Type: CAPILLARY Comment: Test performed by: [id number] Meter #: [id number] Ordering Provider: FRANCK TURNER Report Released Date/Time: Sep 08, 2024 06:46 AM Reporting Lab: [address] [address] Performing Lab: [address] [address] GLUCOSE-HAND MONITOR 104 mg/dL H Sep 07, 2024 07:59 PM [facility] GLUCOSE-HAND MONITOR CAPILLARY Specime n Type: CAPILLARY Comment: Test performed by: [id number] Meter #: [id number] Ordering Provider: FRANCK TURNER Report Released Date/Time: Sep 07, 2024 09:05 PM Reporting Lab: [address] [address] Performing Lab: [address] [address] GLUCOSE-HAND MONITOR 107 mg/dL H Sep 07, 2024 04:39 PM [facility] GLUCOSE-HAND MONITOR CAPILLARY Specime n Type: CAPILLARY Comment: Test performed by: [id number] Meter #: [id number] Ordering Provider: FRANCK TURNER Report Released Date/Time: Sep 07, 2024 05:09 PM Reporting Lab: [address] [address] Performing Lab: [address] [address] GLUCOSE-HAND MONITOR 105 mg/dL H Sep 07, 2024 11:41 AM [facility] GLUCOSE-HAND MONITOR CAPILLARY Specime n Type: CAPILLARY Comment: Test performed by: [id number] Meter #: [id number] Ordering Provider: FRANCK TURNER Report Released Date/Time: Sep 07, 2024 12:41 PM Reporting Lab: [address] [address] Performing Lab: [address] [address] GLUCOSE-HAND MONITOR 144 mg/dL H Sep 07, 2024 05:56 AM [facility] GLUCOSE-HAND MONITOR CAPILLARY Specime n Type: CAPILLARY Comment: Test performed by: [id number] Meter #: [id number] Ordering Provider: FRANCK TURNER Report Released Date/Time: Sep 07, 2024 06:31 AM Reporting Lab: [address] [address] Performing Lab: [address] [address] GLUCOSE-HAND MONITOR 96 mg/dL Sep 06, 2024 08:10 PM [facility] GLUCOSE-HAND MONITOR CAPILLARY Specime n Type: CAPILLARY Comment: Test performed by: [id number] Meter #: [id number] Ordering Provider: FRANCK TURNER Report Released Date/Time: Sep 06, 2024 08:52 PM Reporting Lab: [address] [address] Performing Lab: [address] [address] GLUCOSE-HAND MONITOR 124 mg/dL H Sep 06, 2024 04:27 PM [facility] GLUCOSE-HAND MONITOR CAPILLARY Specime n Type: CAPILLARY Comment: Test performed by: [id number] Meter #: [id number] Ordering Provider: FRANCK TURNER Report Released Date/Time: Sep 06, 2024 05:15 PM Reporting Lab: [address] [address] Performing Lab: [address] [address] GLUCOSE-HAND MONITOR 107 mg/dL H Sep 06, 2024 12:12 PM [facility] GLUCOSE-HAND MONITOR CAPILLARY Specime n Type: CAPILLARY Comment: Test performed by: [id number] Meter #: [id number] Ordering Provider: FRANCK TURNER Report Released Date/Time: Sep 06, 2024 12:29 PM Reporting Lab: [address] [address] Performing Lab: [address] [address] GLUCOSE-HAND MONITOR 181 mg/dL H -Sep 06, 2024 06:13 AM [facility] GLUCOSE-HAND MONITOR CAPILLARY Specime n Type: CAPILLARY Comment: Test performed by: [id number] Meter #: [id number] Ordering Provider: FRANCK TURNER Report Released Date/Time: Sep 06, 2024 06:36 AM Reporting Lab: [address] [address] Performing Lab: [address] [address] GLUCOSE-HAND MONITOR 102 mg/dL H Sep 05, 2024 08:47 PM [facility] GLUCOSE-HAND MONITOR CAPILLARY Specime n Type: CAPILLARY Comment: Test performed by: [id number] Meter #: [id number] Ordering Provider: FRANCK TURNER Report Released Date/Time: Sep 06, 2024 02:13 AM Reporting Lab: [address] [address] Performing Lab: [address] [address] GLUCOSE-HAND MONITOR 103 mg/dL H Sep 05, 2024 04:40 PM [facility] GLUCOSE-HAND MONITOR CAPILLARY Specime n Type: CAPILLARY Comment: AAMIR RN notified Test performed by: [id number] Meter #: [id number] Ordering Provider: FRANCK TURNER Report Released Date/Time: Sep 05, 2024 05:11 PM Reporting Lab: [address] [address] Performing Lab: [address] [address] GLUCOSE-HAND MONITOR 113 mg/dL H Sep 05, 2024 12:06 PM [facility] GLUCOSE-HAND MONITOR CAPILLARY Specime n Type: CAPILLARY Comment: Test performed by: [id number] Meter #: [id number] Ordering Provider: FRANCK TURNER Report Released Date/Time: Sep 05, 2024 12:23 PM Reporting Lab: [address] [address] Performing Lab: [address] [address] GLUCOSE-HAND MONITOR 115 mg/dL H Sep 05, 2024 06:26 AM [facility] GLUCOSE-HAND MONITOR CAPILLARY Specime n Type: CAPILLARY Comment: AAMIR Correction Dose Test performed by: [id number] Meter #: [id number] Ordering Provider: FRANCK TURNER Report Released Date/Time: Sep 05, 2024 06:43 AM Reporting Lab: [address] [address] Performing Lab: [address] [address] GLUCOSE-HAND MONITOR 111 mg/dL H Sep 04, 2024 08:59 PM [facility] GLUCOSE-HAND MONITOR CAPILLARY Specime n Type: CAPILLARY Comment: AAMIR RN notified Test performed by: [id number] Meter #: [id number] Ordering Provider: FRANCK TURNER Report Released Date/Time: Sep 04, 2024 09:36 PM Reporting Lab: [address] [address] Performing Lab: [address] [address] GLUCOSE-HAND MONITOR 123 mg/dL H Sep 04, 2024 04:41 PM [facility] GLUCOSE-HAND MONITOR CAPILLARY Specime n Type: CAPILLARY Comment: AAMIR RN notified Test performed by: [id number] Meter #: [id number] Ordering Provider: FRANCK TURNER Report Released Date/Time: Sep 04, 2024 05:03 PM Reporting Lab: [address] [address] Performing Lab: [address] [address] GLUCOSE-HAND MONITOR 118 mg/dL H Sep 04, 2024 12:36 PM [facility] GLUCOSE-HAND MONITOR CAPILLARY Specime n Type: CAPILLARY Comment: AAMIR RN notified Test performed by: [id number] Meter #: [id number] Ordering Provider: FRANCK TURNER Report Released Date/Time: Sep 04, 2024 12:53 PM Reporting Lab: [address] [address] Performing Lab: [place] [address] GLUCOSE-HAND MONITOR 129 mg/dL H 71-99 Sep 04, 2024 12:03 PM [facility] RESPIRATORY VIRUS PANEL (BIOFIRE) NASOPHARYN X Specimen Type: NASOPHARYNX Comment: ~For Test: RESPIRATORY VIRUS PANEL (BIOFIRE) ~ORDER READ BACK TO: FRANCK TURNER 09/04/24@11:30 Ordering Provider: FRANCK TURNER Report Released Date/Time: Sep 04, 2024 11:33 AM Reporting Lab: [place] [phone] Performing Lab: [place] [phone] ADENOVIRUS (BIOFIRE) Not Detected -Not D etected [...] 11:10 AM Reporting Lab: [place] [facility] [address] [facility] [address] Performing Lab: [place] [address] [facility] [address] MAGNESIUM 1.8 mg/dL 1.6-2.6 Sep 04, 2024 [...] Sep 03, 2024 11:10 AM Reporting Lab: [id number] [address] Performing Lab: [address] CREATININE 0.75 mg/dL 0.72-1.25 UREA NITROGEN [...] n Type: CAPILLARY Comment: Test performed by: [id number] Meter #: [id number] Ordering Provider: FRANCK TURNER Report Released Date/Time: Sep 04, 2024 06:28 AM Reporting Lab: [address] Performing Lab: [address] GLUCOSE-HAND MONITOR 114 mg/dL H 71-99 Sep 03, 2024 05:19 PM [facility] GLUCOSE-HAND MONITOR CAPILLARY Specime n Type: CAPILLARY Comment: Test performed by: [id number] Meter #: [id number] Ordering Provider: FRANCK TURNER Report Released Date/Time: Sep 03, 2024 05:37 PM Reporting Lab: [address] Performing Lab: [address] [address] GLUCOSE-HAND MONITOR 124 mg/dL H 71-99 Sep 03, 2024 04:41 PM [facility] GLUCOSE-HAND MONITOR CAPILLARY Specime n Type: CAPILLARY Comment: Test performed by: [id number] Meter #: [id number] Ordering Provider: FRANCK TURNER Report Released Date/Time: Sep 03, 2024 06:09 PM Reporting Lab: [address] [address] Performing Lab: [address] [address] GLUCOSE-HAND MONITOR 112 mg/dL H 71-99 Sep 03, 2024 01:35 PM [facility] URINE LYTES URINE Specimen Type : URINE Comment: ~Altered mental status with no identifiable cause Ordering Provider: FRANCK TURNER Report Released Date/Time: Sep 02, 2024 04:44 PM Reporting Lab: [address] [address] Performing Lab: [address] [address] SODIUM 130 mmol/L POTASSIUM 47.6 mmol/L CHLORIDE 137 mmol/L Sep 03, 2024 01:35 PM [facility] CREATININE URINE Specimen Type: URINE Comment: ~Altered mental status with no identifiable cause Ordering Provider: FRANCK TURNER Report Released Date/Time: Sep 02, 2024 04:44 PM Reporting Lab: [address] [address] Performing Lab: [address] [address] CREATININE 150.9 mg/dL Sep 03, 2024 01:35 PM [facility] URINALYSIS WITH REFLEX TO CULTURE URINE Specimen Type: URINE Comment: ~Altered mental status with no identifiable cause Ordering Provider: FRANCK TURNER Report Released Date/Time: Sep 02, 2024 04:44 PM Reporting Lab: [address] [address] Performing Lab: [address] [address] URINE COLOR Yellow Colorless-Yellow APPEARANCE CLOUDY H [...] H 0-28 Sep 03, 2024 01:35 PM [facility] UREA NITROGEN URINE Specimen Type : URINE Comment: ~Altered mental status with no identifiable cause Ordering Provider: FRANCK TURNER Report Released Date/Time: Sep 02, 2024 04:44 PM Reporting Lab: [address] [address] Performing Lab: [address] [address] UREA NITROGEN 320 mg/dL Sep 03, 2024 01:35 PM [facility] OSMOLALITY URINE Specimen Type: URINE Comment: ~Altered mental status with no identifiable cause Ordering Provider: FRANCK TURNER Report Released Date/Time: Sep 02, 2024 04:44 PM Reporting Lab: [address] [address] Performing Lab: [place] [phone] OSMOLALITY 522 mosm/kg 38-1400 Sep 03, 2024 11:58 AM [facility] GLUCOSE-HAND MONITOR CAPILLARY Specime n Type: CAPILLARY Comment: AAMIR RN notified Test performed by: [id number] Meter #: [id number] Ordering Provider: FRANKC TURNER Report Released Date/Time: Sep 03, 2024 12:15 PM Reporting Lab: [address] [address] Performing Lab: [address] [address] GLUCOSE-HAND MONITOR 135 mg/dL H -Sep 03, 2024 07:09 AM [facility] GLUCOSE-HAND MONITOR CAPILLARY Specime n Type: CAPILLARY Comment: Test performed by: [id number] Meter #: [id number] Ordering Provider: FRANCK TURNER Report Released Date/Time: Sep 03, 2024 07:26 AM Reporting Lab: [address] [address] Performing Lab: [address] [address] GLUCOSE-HAND MONITOR 120 mg/dL H -Sep 03, 2024 07:05 AM [facility] CBC/PLT BLOOD Specimen Type: BLOOD No comment entered. Ordering Provider: FRANCK TURNER Report Released Date/Time: Sep 02, 2024 04:29 PM Reporting Lab: [address] [address] Performing Lab: [address] [address] WBC 6.9 10*3/uL 5.0-10.0 RBC 3.48 10*6/uL [...] 02, 2024 04:29 PM Reporting Lab: [address] [address] Performing Lab: [address] [address] MAGNESIUM 1.7 mg/dL 1.6-2.6 Sep 03, 2024 07:05 AM [facility] GLYCOHEMOGLOBIN BLOOD Specimen Type: BLOOD Comment: Prediabetes: 5.7%-6.4% Diabetes: >= 6.5% [facility] guidelines for A1c interpretation: Glycemic control [...] 8.73 and 9.27. Ref: https://ngsp.org/CAPdata.asp. The in-house Atieva-Primo.io D-100 analyzer has a historical CV <= 2%. Contact the laboratory for further performance characteristics of this assay. Ordering Provider: ALSIP,FRANCK ROBERTDAVID Report Released Date/Time: Sep 02, 2024 04:29 PM Reporting Lab: [address] [address] Performing Lab: [address] [address] GLYCOHEMOGLOBIN 5.6 4.4-5.6 Sep 03, 2024 07:05 AM [facility] OSMOLALITY SERUM Specimen Type: SERUM No comment entered. Ordering Provider: FRANCK TURNER Report Released Date/Time: Sep 02, 2024 04:44 PM Reporting Lab: [address] [address] Performing Lab: [address] [address] OSMOLALITY 271 mosm/kg L 280-300 Sep 03, 2024 07:05 AM [facility] 02, 2024 04:29 PM Reporting Lab: [address] [address] Performing Lab: [address] [address] CREATININE 0.82 mg/dL 0.72-1.25 UREA NITROGEN 12 mg/dL 9-25 GLUCOSE 109 mg/dL H 74-100 SODIUM 129 mmol/L L 136-145 POTASSIUM 4.2 mmol/L 3.5-5.1 CHLORIDE 99 mmol/L 98-107 CO2 21 mmol/L L 22-29 CALCIUM 8.1 mg/dL L 8.4-10.2 ANION GAP 9 meq/L 3-19 eGFR (CKD-EPI) 90 Sep 02, 2024 08:15 PM [facility] GLUCOSE-HAND MONITOR CAPILLARY Specime n Type: CAPILLARY Comment: AAMIR RN notified Test performed by: [id number] Meter #: [id number] Ordering Provider: FRANCK TURNER Report Released Date/Time: Sep 02, 2024 08:57 PM Reporting Lab: [address] [address] Performing Lab: [address] [address] GLUCOSE-HAND MONITOR 126 mg/dL H 71-99 Sep [...] 02, 2024 05:12 PM Reporting Lab: [address] [address] Performing Lab: [address] [address] MRSA SURVL NARES DNA Negative Negative Sep 02, 2024 05:36 PM [facility] GLUCOSE-HAND MONITOR CAPILLARY Specime n Type: CAPILLARY Comment: Test performed by: [id number] Meter #: [id number] Ordering Provider: FRANCK TURNER Report Released Date/Time: Sep 02, 2024 05:53 PM Reporting Lab: [address] [address] Performing Lab: [address] [address] GLUCOSE-HAND MONITOR 127 mg/dL H 71-99 Aug 29, 2024 10:04 PM [facility] URINALYSIS WITH REFLEX TO CULTURE URINE Specimen Type: URINE Comment: ~For Test: URINALYSIS WITH REFLEX TO CULTURE ~REORDER Ordering Provider: FELISA COLE Report Released Date/Time: Aug 29, 2024 09:36 PM Reporting Lab: [address] [address] Performing Lab: [address] [address] URINE COLOR Yellow Colorless-Yellow APPEARANCE Clear Clear [...] /[LPF] 0-28 Aug 29, 2024 08:32 PM [facility] HIGH SENSITIVITY TROPONIN I PLASMA Specimen [...] 29, 2024 07:55 PM Reporting Lab: [address] [address] Performing Lab: [address] [address] HIGH SENSITIVITY TROPONIN I 7 4-35 Aug 29, 2024 08:32 PM [facility] CBC/PLT BLOOD Specimen Type: BLOOD No comment entered. Ordering Provider: FELISA COLE Report Released Date/Time: Aug 29, 2024 07:55 PM Reporting Lab: [address] [address] Performing Lab: [address] [address] WBC 11.2 10*3/uL H 5.0-10.0 RBC 3.97 10*6/uL L 4.6-6.2 HGB 10.9 g/dL L 14.0-18.0 HCT 33.5 L 42.0-52.0 MCV 84.4 fL 80.0-94.0 MCH 27.5 pg 27.0-31.0 MCHC 32.5 g/dL 32.0-36.0 PLT 230 10*3/uL 150-450 MPV 10.2 fL 9.0-13.1 RDW 14.6 11.0-16.0 NRBC 0.0 0.0-0.0 Aug 29, 2024 08:32 PM [facility] PANEL 5 PLASMA Specimen Type: PLASM [...] 29, 2024 07:55 PM Reporting Lab: [address] [address] Performing Lab: [address] [address] CREATININE 0.85 mg/dL 0.72-1.25 UREA NITROGEN 15 [...] 18 /min 96 % 0 [place] [facility] Sep 08, 2024 09:03 PM 0 [place] [facility] Sep 08, 2024 03:46 PM 97.7 F 76 /min 148/70 mm[Hg] 16 /min 96 % 0 [place] [facility] Sep 08, 2024 11:42 AM 97.4 F 67 /min 125/69 mm[Hg] 92 % [place] [facility] Sep 08, 2024 09:30 AM 0 [place] [facility] Advance Directives: All historical and current [...] 08, 2024 ADVANCE DIRECTIVE DISCUSSION [facility] Radiology Reports: +/- 30 days [...] BRAIN W & W/O: LUIS MANUEL PERDOMO [id number] -1945 M Exm Date: SEP 06, 2024@13:40 Req Phys: FRANCK TURNER [facility] Loc: 5-MED/TEL/09-06-2024@19:09 Img Loc: [facility] Service: [facility] [place] [address] (Case [id number] COMPLETE) MRI BRAIN W & W/O (MRI Detailed) CPT:74365 Contrast Media : Gadolinium Reason for Study: SEE CLINICAL HISTORY Pharmaceutical: GADOTERIDOL 279.3MG/ML 20ML INJ, 19ml Clinical History: MRI Screening (Required): IMPLANTED DEVICE DOCUMENTATION IMPLANTED DEVICE DOCUMENTATION NOT FOUND Does the [place] have any Cardiac Implants? None Does the have any implanted stimulators? None Does the [place] have cochlear implants? No Does the have Cerebral aneurysm clip(s)? I don't know Does the [place] have any shrapnel? I don't know If [...] 06, 2024 Date Verified: SEP 06, 2024 Cap Maker E-Sig: Report: MRI brain without and [...] Staff: ARCENIO LEYVA, Staff Radiologist Verified by lactation coordinator for ARCENIO LEYVA /ARCENIO AVILA-CDD [facility] Sep 06, 2024 01:40 PM MRI C SPINE W & W/ O CONTRAST(FURTHER SEQUENCES): LUIS MANUEL PERDOMO [id number] -1945 M Exm Date: SEP 06, 2024@13:40 Req Phys: FRANCK TURNER Pat Loc: 5-MED/TEL/09-07-2024@06:42 Img Loc: [facility] Service: [place] [address] (Case [id number] COMPLETE) MRI C SPINE W & W/O CONTRAST(FURT(MRI Detailed) CPT:52878 Contrast Media : Gadolinium Reason for Study: SEE CLINICAL HISTORY Pharmaceutical: GADOTERIDOL 279.3MG/ML 20ML INJ, 19ml Clinical History: STATUS OF PLAIN FILMS:Not performed (Provide justification for MR W/O prior plain films below.) MRI for MS MRI Screening (Required): IMPLANTED DEVICE DOCUMENTATION IMPLANTED DEVICE DOCUMENTATION NOT FOUND Does the [place] have any Cardiac Implants? None Does the [place] have any implanted stimulators? None Does the have cochlear implants? No Does the [place] have Cerebral aneurysm clip(s)? I don't know Does the [place] have any shrapnel? I don't know If [...] 07, 2024 Date Verified: SEP 07, 2024 Cap Maker E-Sig: Report: EXAMINATION: MRI OF THE [...] Interpreting Staff: HUANG TAI, Radiologist Verified by lactation coordinator for HUANG TAI /HUANG WHEATLEY-Sav [facility] Sep 03, 2024 10:45 AM CHEST SINGLE(1) EW: LUIS MANUEL PERDOMO [id number] -1945 M Exm Date: SEP 03, 2024@10:45 Req Phys: FRANCK TURNER Pat Loc: 5-MED/TEL/09-03-2024@10:56 Img Loc: CDD RADIOLOGY Service: [place] [address] (Case [id number] COMPLETE)CHEST SINGLE(1) VIEW (RAD Detailed) CPT:43004 Proc Modifiers : PORTABLE EXAM Reason for Study: Eval volume status Clinical History: Report Status: Verified Date Reported: SEP 03, 2024 Date Verified: SEP 03, 2024 Cap Maker E-Sig: Report: EXAMINATION: SINGLE VIEW CHEST [...] Interpreting Staff: HUANG TAI, Radiologist Verified by lactation coordinator for HUANG TAI /HUANG WHEATLEY-CDD [facility] Aug 29, 2024 08:[address] HEAD W/O CONT: LUIS MANUEL PERDOMO [id number] -1945 M Exm Date: AUG 29, 2024@20:28 Req Phys: FELISA COLE Loc: ED/4P-12A (Req'g Loc) Img Loc: CT SCAN Service: Unknown [place] [id number] (Case [id number] COMPLETE) CT HEAD W/O CONT (CT Detailed) CPT:72701 Reason for Study: SEE CLINICAL HISTORY Clinical History: REASON FOR SEND OUT: ATTENDING PHYSICIAN NAME: New transient neurological s/s - suspected TIA HISTORY/REASON FOR EXAM: confusion Report Status: Verified Date Reported: AUG 29, 2024 Date Verified: AUG 29, 2024 Cap Maker E-Sig: Report: HISTORY confusion COMPARISON No [...] Staff: ABDIRAHMAN DAVIDSON, Staff Physician Verified by lactation coordinator for ABDIRAHMAN DAVIDSON /ABDIRAHMAN [facility] Pathology Reports: +/- 30 days [...] RE PORT: Reporting Lab: [facility] [CLIA# [id number]] [address] [place] [id number] Accession [UID]: [id number] [[id number]] Received: Sep 03, 2024@14:02 Collection sample: URINE, [...] Bacteriology Report Performed By: [facility] [CLIA# [id number]] [address] [place] [id number] BHARATI,MAGDY D [facility] Sep 02, 2024 06:00 PM LR MICROBIOLOGY RE PORT: Reporting Lab: [facility] [CLIA# [id number]] [address] [place] [address] Accession [UID]: [id number] [[id number]] Received: Sep 02, 2024@18:07 Collection sample: BLD CULTURE BOTTLES Collection date: Sep 02, 2024 18:00 Site/Specimen: BLOOD Provider: FRANCK TURNER Comment on specimen: L HAND Test(s) ordered: CULTURE, BLOOD................ completed: Sep 08, 2024 * BACTERIOLOGY FINAL REPORT => Sep 08, 2024 08:25 TECH CODE: [id number] Bacteriology Remark(s): Blood culture status=NO GROWTH (unless notified otherwise) 09/03/2024 AEROBIC: NO GROWTH ANAEROBIC: NO GROWTH =--=--=--=--=--=--=--=--=--=-- =--=--=--=--=--=--=--=--=--=-- =--=--=--=--=--=-- Performing Laboratory: Bacteriology Report Performed By: [facility] [CLIA# [id number]] [address] [place], [place] [id number] MAGDY CALABRESE [facility] Aug 29, 2024 10:18 PM LR MICROBIOLOGY RE PORT: Reporting Lab: [facility] [CLIA# [id number]] [address] [place], [place] [id number] Accession [UID]: [id number] [[id number]] Received: Aug 29, 2024@22:18 Collection sample: URINE, CLEAN CATCH Collection date: Aug 29, 2024 22:18 Site/Specimen: URINE Provider: FELISA COLE Test(s) ordered: CULTURE, URINE................ completed: Aug 31, 2024 09:51 * BACTERIOLOGY FINAL REPORT => Aug 31, 2024 09:51 TECH CODE: [id number] Bacteriology Remark(s): NO GROWTH 08/30/2024 <10,000 CFU/ML. 08/31/2024 =--=--=--=--=--=--=--=--=--=-- =--=--=--=--=--=--=--=--=--=-- =--=--=--=--=--=-- Performing Laboratory: Bacteriology Report Performed By: [facility] [CLIA# [id number]] [address] [place] [address] MAGDY CALABRESE-Sav [facility]
--- OUTSIDE RECORDS SUMMARY | 2024-09-08 04:29 | XMS_ITS ---
IN DAILY HOSPITALIZATION DATA [facility] Encounter Summary Created on: September 22, 2024 LUIS MANUEL PERDOMO : 1945 Sex: Male Author Name [facility] [place] Address [address] [place] [address] Care Team Providers Care Patient Care Director Name Role Phone YULISSA HENDERSON Primary [...] PLAN F Mar 24, 2014 PLAN F [id number] [phone] LUIS MANUEL PERDOMO PATIENT [facility] [place] [facility] PREFERRED PROVIDER ORGANIZAT ION (PPO) [facility] SLE Sep 21, 2012 [id number] LUIS MANUEL PERDOMO PATIENT [employer] ([id number]) PRESCRIPT ION WL3A Sep 21, 2012 [id number] [phone] LUIS MANUEL PERDOMO PATIENT MEDICARE (WNR) MEDICARE (M) PART B Sep 21, 2012 PART B [id number] NOEMI PERDOMO PATIENT MEDICARE (WNR) MEDICARE (M) PART A Jan 22, 2011 PART A [id number] LEANNE, NOEMI PATIENT MEDICARE PART D (WNR) MEDICARE (M) PART D Mar 24, 2014 PART D [id number] LUIS MANUEL PERDOMO PATIENT Selected Encounter This section includes the information on record at [place] for the Encounter. Date/Time Encounter Type Encounter Description Reason Pro vider Source Sep 08, 2024 08:29 AM Inpatient Visit DAILY HOSPITALIZATION [...] AM AMBULATORY - NONE [facility] Sep 30, 2024 01:30 PM AMBULATORY - SURGERY [facility] Active, Pending, and Scheduled Orders This section includes a listing of several types of active, pending, and scheduled orders, including clinic medications orders, diagnostic test orders, procedure orders and consult orders; where the start date of the order is 45 days before the date of the Encounter or 45 days after the date of theEncounter. The data comes from all [facility] facilities. Test Date/Time Test Type Test Details Facility Name Sep 13, 2024 01:33 PM Consult Order [facility] Cons Interventional Sale Consultant's Choice [facility] Lab Results: +/- 30 [...] Specimen Type: CAPILLARY Comment: Test performed by: [id number] Meter #: [id number] Ordering Provider: FRANCK TURNER Report Released Date/Time: Sep 09, 2024 12:33 PM Reporting Lab: [address] [address] Performing Lab: [address] [address] GLUCOSE-HAND MONITOR 116 mg/dL H Sep 09, 2024 06:07 AM [facility] GLUCOSE-HAND MONITOR CAPILLARY Specime n Type: CAPILLARY Comment: Test performed by: [id number] Meter #: [id number] Ordering Provider: FRANCK TURNER Report Released Date/Time: Sep 09, 2024 08:17 AM Reporting Lab: [address] [address] Performing Lab: [address] [address] GLUCOSE-HAND MONITOR 112 mg/dL H Sep 08, 2024 09:13 PM [facility] GLUCOSE-HAND MONITOR CAPILLARY Specime n Type: CAPILLARY Comment: Test performed by: [id number] Meter #: [id number] Ordering Provider: FRANCK TURNER Report Released Date/Time: Sep 08, 2024 09:31 PM Reporting Lab: [address] [address] Performing Lab: [address] [address] GLUCOSE-HAND MONITOR 107 mg/dL H Sep 08, 2024 03:49 PM [facility] GLUCOSE-HAND MONITOR CAPILLARY Specime n Type: CAPILLARY Comment: AAMIR RN notified Test performed by: [id number] Meter #: [id number] Ordering Provider: FRANCK TURNER Report Released Date/Time: Sep 08, 2024 04:33 PM Reporting Lab: [address] [address] Performing Lab: [address] [address] GLUCOSE-HAND MONITOR 162 mg/dL H Sep 08, 2024 11:43 AM [facility] GLUCOSE-HAND MONITOR CAPILLARY Specime n Type: CAPILLARY Comment: AAMIR RN notified Test performed by: [id number] Meter #: [id number] Ordering Provider: FRANCK TURNER Report Released Date/Time: Sep 08, 2024 12:03 PM Reporting Lab: [address] [address] Performing Lab: [address] [address] GLUCOSE-HAND MONITOR 133 mg/dL H Sep 08, 2024 06:13 AM [facility] GLUCOSE-HAND MONITOR CAPILLARY Specime n Type: CAPILLARY Comment: Test performed by: [id number] Meter #: [id number] Ordering Provider: FRANCK TURNER Report Released Date/Time: Sep 08, 2024 06:46 AM Reporting Lab: [address] [address] Performing Lab: [address] [address] GLUCOSE-HAND MONITOR 104 mg/dL H Sep 07, 2024 07:59 PM [facility] GLUCOSE-HAND MONITOR CAPILLARY Specime n Type: CAPILLARY Comment: Test performed by: [id number] Meter #: [id number] Ordering Provider: FRANCK TURNER Report Released Date/Time: Sep 07, 2024 09:05 PM Reporting Lab: [address] [address] Performing Lab: [address] [address] GLUCOSE-HAND MONITOR 107 mg/dL H Sep 07, 2024 04:39 PM [facility] GLUCOSE-HAND MONITOR CAPILLARY Specime n Type: CAPILLARY Comment: Test performed by: [id number] Meter #: [id number] Ordering Provider: FRANCK TURNER Report Released Date/Time: Sep 07, 2024 05:09 PM Reporting Lab: [address] [address] Performing Lab: [address] [address] GLUCOSE-HAND MONITOR 105 mg/dL H Sep 07, 2024 11:41 AM [facility] GLUCOSE-HAND MONITOR CAPILLARY Specime n Type: CAPILLARY Comment: Test performed by: [id number] Meter #: [id number] Ordering Provider: FRANCK TURNER Report Released Date/Time: Sep 07, 2024 12:41 PM Reporting Lab: [address] [address] Performing Lab: [address] [address] GLUCOSE-HAND MONITOR 144 mg/dL H Sep 07, 2024 05:56 AM [facility] GLUCOSE-HAND MONITOR CAPILLARY Specime n Type: CAPILLARY Comment: Test performed by: [id number] Meter #: [id number] Ordering Provider: FRANCK TURNER Report Released Date/Time: Sep 07, 2024 06:31 AM Reporting Lab: [address] [address] Performing Lab: [address] [address] GLUCOSE-HAND MONITOR 96 mg/dL Sep 06, 2024 08:10 PM [facility] GLUCOSE-HAND MONITOR CAPILLARY Specime n Type: CAPILLARY Comment: Test performed by: [id number] Meter #: [id number] Ordering Provider: FRANCK TURNER Report Released Date/Time: Sep 06, 2024 08:52 PM Reporting Lab: [address] [address] Performing Lab: [address] [address] GLUCOSE-HAND MONITOR 124 mg/dL H Sep 06, 2024 04:27 PM [facility] GLUCOSE-HAND MONITOR CAPILLARY Specime n Type: CAPILLARY Comment: Test performed by: [id number] Meter #: [id number] Ordering Provider: FRANCK TURNER Report Released Date/Time: Sep 06, 2024 05:15 PM Reporting Lab: [address] [address] Performing Lab: [address] [address] GLUCOSE-HAND MONITOR 107 mg/dL H Sep 06, 2024 12:12 PM [facility] GLUCOSE-HAND MONITOR CAPILLARY Specime n Type: CAPILLARY Comment: Test performed by: [id number] Meter #: [id number] Ordering Provider: FRANCK TURNER Report Released Date/Time: Sep 06, 2024 12:29 PM Reporting Lab: [address] [address] Performing Lab: [address] [address] GLUCOSE-HAND MONITOR 181 mg/dL H -Sep 06, 2024 06:13 AM [facility] GLUCOSE-HAND MONITOR CAPILLARY Specime n Type: CAPILLARY Comment: Test performed by: [id number] Meter #: [id number] Ordering Provider: FRANCK TURNER Report Released Date/Time: Sep 06, 2024 06:36 AM Reporting Lab: [address] [address] Performing Lab: [address] [address] GLUCOSE-HAND MONITOR 102 mg/dL H Sep 05, 2024 08:47 PM [facility] GLUCOSE-HAND MONITOR CAPILLARY Specime n Type: CAPILLARY Comment: Test performed by: [id number] Meter #: [id number] Ordering Provider: FRANCK TURNER Report Released Date/Time: Sep 06, 2024 02:13 AM Reporting Lab: [address] [address] Performing Lab: [address] [address] GLUCOSE-HAND MONITOR 103 mg/dL H Sep 05, 2024 04:40 PM [facility] GLUCOSE-HAND MONITOR CAPILLARY Specime n Type: CAPILLARY Comment: AAMIR RN notified Test performed by: [id number] Meter #: [id number] Ordering Provider: FRANCK TURNER Report Released Date/Time: Sep 05, 2024 05:11 PM Reporting Lab: [address] [address] Performing Lab: [address] [address] GLUCOSE-HAND MONITOR 113 mg/dL H Sep 05, 2024 12:06 PM [facility] GLUCOSE-HAND MONITOR CAPILLARY Specime n Type: CAPILLARY Comment: Test performed by: [id number] Meter #: [id number] Ordering Provider: FRANCK TURNER Report Released Date/Time: Sep 05, 2024 12:23 PM Reporting Lab: [address] [address] Performing Lab: [address] [address] GLUCOSE-HAND MONITOR 115 mg/dL H Sep 05, 2024 06:26 AM [facility] GLUCOSE-HAND MONITOR CAPILLARY Specime n Type: CAPILLARY Comment: AAMIR Correction Dose Test performed by: [id number] Meter #: [id number] Ordering Provider: FRANCK TURNER Report Released Date/Time: Sep 05, 2024 06:43 AM Reporting Lab: [address] [address] Performing Lab: [address] [address] GLUCOSE-HAND MONITOR 111 mg/dL H Sep 04, 2024 08:59 PM [facility] GLUCOSE-HAND MONITOR CAPILLARY Specime n Type: CAPILLARY Comment: AAMIR RN notified Test performed by: [id number] Meter #: [id number] Ordering Provider: FRANCK TURNER Report Released Date/Time: Sep 04, 2024 09:36 PM Reporting Lab: [address] [address] Performing Lab: [address] [address] GLUCOSE-HAND MONITOR 123 mg/dL H Sep 04, 2024 04:41 PM [facility] GLUCOSE-HAND MONITOR CAPILLARY Specime n Type: CAPILLARY Comment: AAMIR RN notified Test performed by: [id number] Meter #: [id number] Ordering Provider: FRANCK TURNER Report Released Date/Time: Sep 04, 2024 05:03 PM Reporting Lab: [address] [address] Performing Lab: [address] [address] GLUCOSE-HAND MONITOR 118 mg/dL H Sep 04, 2024 12:36 PM [facility] GLUCOSE-HAND MONITOR CAPILLARY Specime n Type: CAPILLARY Comment: AAMIR RN notified Test performed by: [id number] Meter #: [id number] Ordering Provider: FRANCK TURNER Report Released Date/Time: Sep 04, 2024 12:53 PM Reporting Lab: [address] [address] Performing Lab: [place] [address] GLUCOSE-HAND MONITOR 129 mg/dL H 71-99 Sep 04, 2024 12:03 PM [facility] RESPIRATORY VIRUS PANEL (BIOFIRE) NASOPHARYN X Specimen Type: NASOPHARYNX Comment: ~For Test: RESPIRATORY VIRUS PANEL (BIOFIRE) ~ORDER READ BACK TO: FRANCK TURNER 09/04/24@11:30 Ordering Provider: FRANCK TURNER Report Released Date/Time: Sep 04, 2024 11:33 AM Reporting Lab: [place] [phone] Performing Lab: [place] [phone] ADENOVIRUS (BIOFIRE) Not Detected -Not D etected [...] -Not Detected Sep 04, 2024 06:55 AM [facility] MAGNESIUM PLASMA Specimen Type: PLASM [...] 03, 2024 11:10 AM Reporting Lab: [facility] [address] [facility] [address] Performing Lab: [place] [address] [facility] [address] MAGNESIUM 1.8 mg/dL 1.6-2.6 Sep 04, 2024 06:55 AM [facility] PANEL 1 PLASMA Specimen Type: [...] Sep 03, 2024 11:10 AM Reporting Lab: [address] [address] Performing Lab: [address] CREATININE 0.75 mg/dL 0.72-1.25 UREA NITROGEN 13 mg/dL 9-25 GLUCOSE 105 mg/dL H 74-100 SODIUM 128 mmol/L L 136-145 POTASSIUM 3.9 mmol/L 3.5-5.1 CHLORIDE 99 mmol/L 98-107 CO2 21 mmol/L L 22-29 CALCIUM 8.0 mg/dL L 8.4-10.2 ANION GAP 8 meq/L 3-19 eGFR (CKD-EPI) >90 Sep 04, 2024 06:02 AM [facility] GLUCOSE-HAND MONITOR CAPILLARY Specime n Type: CAPILLARY Comment: Test performed by: [id number] Meter #: [id number] Ordering Provider: FRANCK TURNER Report Released Date/Time: Sep 04, 2024 06:28 AM Reporting Lab: [address] Performing Lab: [address] GLUCOSE-HAND MONITOR 114 mg/dL H 71-99 Sep 03, 2024 05:19 PM [facility] GLUCOSE-HAND MONITOR CAPILLARY Specime n Type: CAPILLARY Comment: Test performed by: [id number] Meter #: [id number] Ordering Provider: FRANCK TURNER Report Released Date/Time: Sep 03, 2024 05:37 PM Reporting Lab: [address] Performing Lab: [address] [address] GLUCOSE-HAND MONITOR 124 mg/dL H 71-99 Sep 03, 2024 04:41 PM [facility] GLUCOSE-HAND MONITOR CAPILLARY Specime n Type: CAPILLARY Comment: Test performed by: [id number] Meter #: [id number] Ordering Provider: FRANCK TURNER Report Released Date/Time: Sep 03, 2024 06:09 PM Reporting Lab: [address] [address] Performing Lab: [address] [address] GLUCOSE-HAND MONITOR 112 mg/dL H 71-99 Sep 03, 2024 01:35 PM [facility] CREATININE URINE Specimen Type: URINE Comment: ~Altered mental status with no identifiable cause Ordering Provider: FRANCK TURNER Report Released Date/Time: Sep 02, 2024 04:44 PM Reporting Lab: [address] [address] Performing Lab: [place] [phone] CREATININE 150.9 mg/dL Sep 03, 2024 01:35 PM [facility] URINE LYTES URINE Specimen Type : URINE Comment: ~Altered mental status with no identifiable cause Ordering Provider: FRANCK TURNER Report Released Date/Time: Sep 02, 2024 04:44 PM Reporting Lab: [address] [address] Performing Lab: [address] [address] SODIUM 130 mmol/L POTASSIUM 47.6 mmol/L CHLORIDE 137 mmol/L Sep 03, 2024 01:35 PM [facility] URINALYSIS WITH REFLEX TO CULTURE URINE Specimen Type: URINE Comment: ~Altered mental status with no identifiable cause Ordering Provider: FRANCK TURNER Report Released Date/Time: Sep 02, 2024 04:44 PM Reporting Lab: [address] [address] Performing Lab: [address] [address] URINE COLOR Yellow Colorless-Yellow APPEARANCE CLOUDY H [...] H 0-28 Sep 03, 2024 01:35 PM [facility] UREA NITROGEN URINE Specimen Type : URINE Comment: ~Altered mental status with no identifiable cause Ordering Provider: FRANCK TURNER Report Released Date/Time: Sep 02, 2024 04:44 PM Reporting Lab: [address] [address] Performing Lab: [address] [address] UREA NITROGEN 320 mg/dL Sep 03, 2024 01:35 PM [facility] OSMOLALITY URINE Specimen Type: URINE Comment: ~Altered mental status with no identifiable cause Ordering Provider: FRANCK TURNER Report Released Date/Time: Sep 02, 2024 04:44 PM Reporting Lab: [address] [address] Performing Lab: [place] [phone] OSMOLALITY 522 mosm/kg 38-1400 Sep 03, 2024 11:58 AM [facility] GLUCOSE-HAND MONITOR CAPILLARY Specime n Type: CAPILLARY Comment: AAMIR RN notified Test performed by: [id number] Meter #: [id number] Ordering Provider: FRANCK TURNER Report Released Date/Time: Sep 03, 2024 12:15 PM Reporting Lab: [address] [address] Performing Lab: [address] [address] GLUCOSE-HAND MONITOR 135 mg/dL H -Sep 03, 2024 07:09 AM [facility] GLUCOSE-HAND MONITOR CAPILLARY Specime n Type: CAPILLARY Comment: Test performed by: [id number] Meter #: [id number] Ordering Provider: FRANCK TURNER Report Released Date/Time: Sep 03, 2024 07:26 AM Reporting Lab: [address] [address] Performing Lab: [address] [address] GLUCOSE-HAND MONITOR 120 mg/dL H -Sep 03, 2024 07:05 AM [facility] CBC/PLT BLOOD Specimen Type: BLOOD No comment entered. Ordering Provider: FRANCK TURNER Report Released Date/Time: Sep 02, 2024 04:29 PM Reporting Lab: [address] [address] Performing Lab: [address] [address] WBC 6.9 10*3/uL 5.0-10.0 RBC 3.48 10*6/uL L 4.6-6.2 HGB 9.5 g/dL L 14.0-18.0 HCT 29.1 L 42.0-52.0 MCV 83.6 fL 80.0-94.0 MCH 27.3 pg 27.0-31.0 MCHC 32.6 g/dL 32.0-36.0 PLT 258 10*3/uL 150-450 MPV 10.3 fL 9.0-13.1 RDW 14.8 11.0-16.0 NRBC 0.0 0.0-0.0 Sep 03, 2024 07:05 AM [facility] MAGNESIUM PLASMA Specimen Type: PLASM [...] 02, 2024 04:29 PM Reporting Lab: [address] [address] Performing Lab: [address] [address] MAGNESIUM 1.7 mg/dL 1.6-2.6 Sep 03, 2024 07:05 AM [facility] PANEL 1 PLASMA Specimen Type: [...] 02, 2024 04:29 PM Reporting Lab: [address] [address] Performing Lab: [address] [address] CREATININE 0.82 mg/dL 0.72-1.25 UREA NITROGEN 12 mg/dL 9-25 GLUCOSE 109 mg/dL H 74-100 SODIUM 129 mmol/L L 136-145 POTASSIUM 4.2 mmol/L 3.5-5.1 CHLORIDE 99 mmol/L 98-107 CO2 21 mmol/L L 22-29 CALCIUM 8.1 mg/dL L 8.4-10.2 ANION GAP 9 meq/L 3-19 eGFR (CKD-EPI) 90 Sep 03, 2024 07:05 AM [facility] GLYCOHEMOGLOBIN BLOOD Specimen Type: BLOOD Comment: Prediabetes: 5.7%-6.4% Diabetes: >= 6.5% [facility] guidelines for A1c interpretation: Glycemic [...] 8.73 and 9.27. Ref: https://ngsp.org/CAPdata.asp. The in-house [employer] D-100 analyzer has a historical CV <= 2%. Contact the laboratory for further performance characteristics of this assay. Ordering Provider: FRANCK TURNER Report Released Date/Time: Sep 02, 2024 04:29 PM Reporting Lab: [address] [address] Performing Lab: [place] [phone] GLYCOHEMOGLOBIN 5.6 4.4-5.6 Sep 03, 2024 07:05 AM [facility] OSMOLALITY SERUM Specimen Type: SERUM No comment entered. Ordering Provider: FRANCK TURNER Report Released Date/Time: Sep 02, 2024 04:44 PM Reporting Lab: [address] [address] Performing Lab: [address] [address] OSMOLALITY 271 mosm/kg L 280-300 Sep 02, 2024 08:15 PM [facility] GLUCOSE-HAND MONITOR CAPILLARY Specime n Type: CAPILLARY Comment: AAMIR DEXTER notified Test performed by: [id number] Meter #: [id number] Ordering Provider: FRANCK TURNER Report Released Date/Time: Sep 02, 2024 08:57 PM Reporting Lab: [address] [address] Performing Lab: [address] [address] GLUCOSE-HAND MONITOR 126 mg/dL H 71-99 Sep 02, 2024 06:10 PM [facility] MRSA SURVL NARES DNA NARES [...] 02, 2024 05:12 PM Reporting Lab: [address] [address] Performing Lab: [address] [address] MRSA SURVL NARES DNA Negative Negative Sep 02, 2024 05:36 PM [facility] GLUCOSE-HAND MONITOR CAPILLARY Specime n Type: CAPILLARY Comment: Test performed by: [id number] Meter #: [id number] Ordering Provider: FRANCK TURNER Report Released Date/Time: Sep 02, 2024 05:53 PM Reporting Lab: [address] [address] Performing Lab: [address] [address] GLUCOSE-HAND MONITOR 127 mg/dL H 71-99 Aug 29, 2024 10:04 PM [facility] URINALYSIS WITH REFLEX TO CULTURE URINE Specimen Type: URINE Comment: ~For Test: URINALYSIS WITH REFLEX TO CULTURE ~REORDER Ordering Provider: FELISA COLE Report Released Date/Time: Aug 29, 2024 09:36 PM Reporting Lab: [address] [address] Performing Lab: [address] [address] URINE COLOR Yellow Colorless-Yellow APPEARANCE Clear Clear [...] /[LPF] 0-28 Aug 29, 2024 08:32 PM [facility] HIGH SENSITIVITY TROPONIN I PLASMA [...] 29, 2024 07:55 PM Reporting Lab: [address] [address] Performing Lab: [address] [address] HIGH SENSITIVITY TROPONIN I 7 4-35 Aug 29, 2024 08:32 PM [facility] CBC/PLT BLOOD Specimen Type: BLOOD No comment entered. Ordering Provider: FELISA COLE Report Released Date/Time: Aug 29, 2024 07:55 PM Reporting Lab: [address] [address] Performing Lab: [address] [address] WBC 11.2 10*3/uL H 5.0-10.0 RBC 3.97 10*6/uL L 4.6-6.2 HGB 10.9 g/dL L 14.0-18.0 HCT 33.5 L 42.0-52.0 MCV 84.4 fL 80.0-94.0 MCH 27.5 pg 27.0-31.0 MCHC 32.5 g/dL 32.0-36.0 PLT 230 10*3/uL 150-450 MPV 10.2 fL 9.0-13.1 RDW 14.6 11.0-16.0 NRBC 0.0 0.0-0.0 Aug 29, 2024 08:32 PM [facility] PANEL 5 PLASMA Specimen Type: [...] 29, 2024 07:55 PM Reporting Lab: [address] [address] Performing Lab: [address] [address] CREATININE 0.85 mg/dL 0.72-1.25 UREA NITROGEN 15 [...] 18 /min 96 % 0 [place] [facility] Sep 08, 2024 09:03 PM 0 [place] [facility] Sep 08, 2024 03:46 PM 97.7 F 76 /min 148/70 mm[Hg] 16 /min 96 % 0 [place] [facility] Sep 08, 2024 11:42 AM 97.4 F 67 /min 125/69 mm[Hg] 92 % [place] [facility] Sep 08, 2024 09:30 AM 0 [place] [facility] Advance Directives: All historical and current [...] 08, 2024 ADVANCE DIRECTIVE DISCUSSION [facility] Radiology Reports: +/- 30 [...] BRAIN W & W/O: LUIS MANUEL PERDOMO [id number] -1945 M Exm Date: SEP 06, 2024@13:40 Req Phys: FRANCK TURNER [facility] Loc: 5-MED/TEL/09-06-2024@19:09 Img Loc: [facility] Service: [place] [address] (Case [id number] COMPLETE) MRI BRAIN W & W/O (MRI Detailed) CPT:29000 Contrast Media : Gadolinium Reason for Study: SEE CLINICAL HISTORY Pharmaceutical: GADOTERIDOL 279.3MG/ML 20ML INJ, 19ml Clinical History: MRI Screening (Required): IMPLANTED DEVICE DOCUMENTATION IMPLANTED DEVICE DOCUMENTATION NOT FOUND Does the [place] have any Cardiac Implants? None Does the have any implanted stimulators? None Does the [place] have cochlear implants? No Does the have Cerebral aneurysm clip(s)? I don't know Does the [place] have any shrapnel? I don't know If [...] 06, 2024 Date Verified: SEP 06, 2024 Tram Driver E-Sig: Report: MRI brain without and with [...] Staff: ARCENIO LEYVA, Staff Radiologist Verified by core cutter for ARCENIO LEYVA /ARCENIO [facility] Sep 06, 2024 01:40 PM MRI C SPINE W & W/ O CONTRAST(FURTHER SEQUENCES): LUIS MANUEL PERDOMO [id number] -1945 M Exm Date: SEP 06, 2024@13:40 Req Phys: FRANCK TURNER Pat Loc: 5-MED/TEL/09-07-2024@06:42 Img Loc: [facility] Service: [place] [address] (Case [id number] COMPLETE) MRI C SPINE W & W/O CONTRAST(FURT(MRI Detailed) CPT:40646 Contrast Media : Gadolinium Reason for Study: SEE CLINICAL HISTORY Pharmaceutical: GADOTERIDOL 279.3MG/ML 20ML INJ, 19ml Clinical History: STATUS OF PLAIN FILMS:Not performed (Provide justification for MR W/O prior plain films below.) MRI for MS MRI Screening (Required): IMPLANTED DEVICE DOCUMENTATION IMPLANTED DEVICE DOCUMENTATION NOT FOUND Does the [place] have any Cardiac Implants? None Does the [place] have any implanted stimulators? None Does the have cochlear implants? No Does the [place] have Cerebral aneurysm clip(s)? I don't know Does the [place] have any shrapnel? I don't know If [...] 07, 2024 Date Verified: SEP 07, 2024 Tram Driver E-Sig: Report: EXAMINATION: MRI OF THE CERVICAL [...] Interpreting Staff: HUANG TAI, Radiologist Verified by core cutter for HUANG TAI /HUANG [place]-[facility] Sep 03, 2024 10:45 AM CHEST SINGLE(1) EW: LUIS MANUEL PERDOMO [id number] -1945 M Exm Date: SEP 03, 2024@10:45 Req Phys: FRANCK TURNER Pat Loc: 5-MED/TEL/09-03-2024@10:56 Img Loc: [facility] Service: [place] [address] (Case [id number] COMPLETE)CHEST SINGLE(1) VIEW (RAD Detailed) CPT:53474 Proc Modifiers : PORTABLE EXAM Reason for Study: Eval volume status Clinical History: Report Status: Verified Date Reported: SEP 03, 2024 Date Verified: SEP 03, 2024 Tram Driver E-Sig: Report: EXAMINATION: SINGLE VIEW CHEST CLINICAL [...] Interpreting Staff: HUANG TAI, Radiologist Verified by core cutter for HUANG TAI /HUANG WHEATLEY-[facility] Aug 29, 2024 08:[address] HEAD W/O CONT: LUIS MANUEL PERDOMO [id number] -1945 M Exm Date: AUG 29, 2024@20:28 Req Phys: FELISA COLE Loc: ED/4P-12A (Req'g Loc) Img Loc: CT SCAN Service: Unknown [place] [id number] (Case [id number] COMPLETE) CT HEAD W/O CONT (CT Detailed) CPT:00656 Reason for Study: SEE CLINICAL HISTORY Clinical History: REASON FOR SEND OUT: ATTENDING PHYSICIAN NAME: New transient neurological s/s - suspected TIA HISTORY/REASON FOR EXAM: confusion Report Status: Verified Date Reported: AUG 29, 2024 Date Verified: AUG 29, 2024 Tram Driver E-Sig: Report: HISTORY confusion COMPARISON No prior [...] Staff: ABDIRAHMAN CROW, Staff Physician Verified by core cutter for ABDIRAHMAN CROW /ABDIRAHMAN ROJAS-[facility] Pathology Reports: +/- 30 days of the [...] PORT: Reporting Lab: [facility] [CLIA# [id number]] [address] [place] [id number] Accession [UID]: [id number] [[id number]] Received: Sep 03, 2024@14:02 Collection sample: URINE, [...] Report Performed By: [facility] [CLIA# [id number]] [address] [place] [id number] BHARATI,MAGDY D [facility] Sep 02, 2024 06:00 PM LR MICROBIOLOGY RE PORT: Reporting Lab: [facility] [CLIA# [id number]] [address] [place] [address] Accession [UID]: [id number] [[id number]] Received: Sep 02, 2024@18:07 Collection sample: BLD CULTURE BOTTLES Collection date: Sep 02, 2024 18:00 Site/Specimen: BLOOD Provider: FRANCK TURNER Comment on specimen: L HAND Test(s) ordered: CULTURE, BLOOD................ completed: Sep 08, 2024 * BACTERIOLOGY FINAL REPORT => Sep 08, 2024 08:25 TECH CODE: [id number] Bacteriology Remark(s): Blood culture status=NO GROWTH (unless notified otherwise) 09/03/2024 AEROBIC: NO GROWTH ANAEROBIC: NO GROWTH =--=--=--=--=--=--=--=--=--=-- =--=--=--=--=--=--=--=--=--=-- =--=--=--=--=--=-- Performing Laboratory: Bacteriology Report Performed By: [facility] [CLIA# [id number]] [address] [place], [place] [id number] MAG[facility] CALABRESE [facility] Aug 29, 2024 10:18 PM LR MICROBIOLOGY RE PORT: Reporting Lab: [facility] [CLIA# [id number]] [address] [place], [place] [id number] Accession [UID]: [id number] [[id number]] Received: Aug 29, 2024@22:18 Collection sample: URINE, CLEAN CATCH Collection date: Aug 29, 2024 22:18 Site/Specimen: URINE Provider: FELISA COLE Test(s) ordered: CULTURE, URINE................ completed: Aug 31, 2024 09:51 * BACTERIOLOGY FINAL REPORT => Aug 31, 2024 09:51 TECH CODE: [id number] Bacteriology Remark(s): NO GROWTH 08/30/2024 <10,000 CFU/ML. 08/31/2024 =--=--=--=--=--=--=--=--=--=-- =--=--=--=--=--=--=--=--=--=-- =--=--=--=--=--=-- Performing Laboratory: Bacteriology Report Performed By: [facility] [CLIA# [id number]] [address] [place] [address] [facility]
--- OUTSIDE RECORDS SUMMARY | 2024-09-08 04:30 | XMS_ITS | Encounter Summary ---
Author Name [facility] ([place]) Organization [facility] ([place]) Address [address] [place] [address] Care Team Providers Care Dean Of Education Name Role Phone YULISSA HENDERSON Primary Care [...] PLAN F Mar 24, 2014 PLAN F [phone] LUIS MANUEL PERDOMO PATIENT BS [place] [employer] PREFERRED PROVIDER ORGANIZAT ION (PPO) [facility] SLE Sep 21, 2012 [id number] [phone] LUIS MANUEL PERDOMO PATIENT [employer] ([id number]) PRESCRIPT ION WL3A Sep 21, 2012 [id number] [phone] LUIS MANUEL PERDOMO PATIENT MEDICARE (WNR) MEDICARE (M) PART B Sep 21, 2012 PART B [id number] NOEMI PERDOMO PATIENT MEDICARE (WNR) MEDICARE (M) PART A Jan 22, 2011 PART A [id number] NOEMI PERDOMO PATIENT MEDICARE PART D (WNR) MEDICARE (M) PART D Mar 24, 2014 PART D [id number] LUIS MANUEL PERDOMO PATIENT Selected Encounter This section includes the information on record at OR for the Encounter. Date/Time Encounter Type Encounter Description Reason Provider Source Sep 08, 2024 08:30 AM CASE MANAGEMENT SOCIAL WORK SERVICE ICD-10-CM Z75.8 Oth prob related to medical facilities and ot health care DIXON NEUMANN IHStephen Encounter Template Text not used by OR Assessments - Encounter Diagnoses This section includes the primary and secondary diagnoses documented for the Encounter. Date/Time Primary/Secondary Diagnosis Diagnosis Name Provider Source Sep 08, 2024 03:42 PM PRIMARY Oth prob related to medical facilities and ot health care FANTASMA NEUMANNMALKA [facility] Sep 08, 2024 03:42 PM SECONDARY Person awaiting admission to adequate facility elsewhere [facility] Plan of Treatment: Future Appointments (+ 6 months) and Future Tests (+/- 45 days) The Plan of Treatment section includes future care activities for the [facility]. This section includes future appointments [...] 13, 2024 01:33 PM Consult Order [facility] Cons [employer] [facility] Lab Results: [...] Specimen Type: CAPILLARY Comment: Test performed by: [id number] Meter #: [id number] Ordering Provider: FRANCK TURNER Report Released Date/Time: Sep 09, 2024 12:33 PM Reporting Lab: [address] [address] Performing Lab: [address] [address] GLUCOSE-HAND MONITOR 116 mg/dL H Sep 09, 2024 06:07 AM [facility] GLUCOSE-HAND MONITOR CAPILLARY Specime n Type: CAPILLARY Comment: Test performed by: [id number] Meter #: [id number] Ordering Provider: FRANCK TURNER Report Released Date/Time: Sep 09, 2024 08:17 AM Reporting Lab: [address] [address] Performing Lab: [address] [address] GLUCOSE-HAND MONITOR 112 mg/dL H Sep 08, 2024 09:13 PM [facility] GLUCOSE-HAND MONITOR CAPILLARY Specime n Type: CAPILLARY Comment: Test performed by: [id number] Meter #: [id number] Ordering Provider: FRANCK TURNER Report Released Date/Time: Sep 08, 2024 09:31 PM Reporting Lab: [address] [address] Performing Lab: [address] [address] GLUCOSE-HAND MONITOR 107 mg/dL H Sep 08, 2024 03:49 PM [facility] GLUCOSE-HAND MONITOR CAPILLARY Specime n Type: CAPILLARY Comment: AAMIR RN notified Test performed by: [id number] Meter #: [id number] Ordering Provider: FRANCK TURNER Report Released Date/Time: Sep 08, 2024 04:33 PM Reporting Lab: [address] [address] Performing Lab: [address] [address] GLUCOSE-HAND MONITOR 162 mg/dL H Sep 08, 2024 11:43 AM [facility] GLUCOSE-HAND MONITOR CAPILLARY Specime n Type: CAPILLARY Comment: AAMIR RN notified Test performed by: [id number] Meter #: [id number] Ordering Provider: FRANCK TURNER Report Released Date/Time: Sep 08, 2024 12:03 PM Reporting Lab: [address] [address] Performing Lab: [address] [address] GLUCOSE-HAND MONITOR 133 mg/dL H Sep 08, 2024 06:13 AM [facility] GLUCOSE-HAND MONITOR CAPILLARY Specime n Type: CAPILLARY Comment: Test performed by: [id number] Meter #: [id number] Ordering Provider: FRANCK TURNER Report Released Date/Time: Sep 08, 2024 06:46 AM Reporting Lab: [address] [address] Performing Lab: [address] [address] GLUCOSE-HAND MONITOR 104 mg/dL H Sep 07, 2024 07:59 PM [facility] GLUCOSE-HAND MONITOR CAPILLARY Specime n Type: CAPILLARY Comment: Test performed by: [id number] Meter #: [id number] Ordering Provider: FRANCK TURNER Report Released Date/Time: Sep 07, 2024 09:05 PM Reporting Lab: [address] [address] Performing Lab: [address] [address] GLUCOSE-HAND MONITOR 107 mg/dL H Sep 07, 2024 04:39 PM [facility] GLUCOSE-HAND MONITOR CAPILLARY Specime n Type: CAPILLARY Comment: Test performed by: [id number] Meter #: [id number] Ordering Provider: FRANCK TURNER Report Released Date/Time: Sep 07, 2024 05:09 PM Reporting Lab: [address] [address] Performing Lab: [address] [address] GLUCOSE-HAND MONITOR 105 mg/dL H -99 Sep 07, 2024 11:41 AM [facility] GLUCOSE-HAND MONITOR CAPILLARY Specime n Type: CAPILLARY Comment: Test performed by: [id number] Meter #: [id number] Ordering Provider: FRANCK TURNER Report Released Date/Time: Sep 07, 2024 12:41 PM Reporting Lab: [address] [address] Performing Lab: [address] [address] GLUCOSE-HAND MONITOR 144 mg/dL H Sep 07, 2024 05:56 AM [facility] GLUCOSE-HAND MONITOR CAPILLARY Specime n Type: CAPILLARY Comment: Test performed by: [id number] Meter #: [id number] Ordering Provider: FRANCK TURNER Report Released Date/Time: Sep 07, 2024 06:31 AM Reporting Lab: [address] [address] Performing Lab: [address] [address] GLUCOSE-HAND MONITOR 96 mg/dL -Sep 06, 2024 08:10 PM [facility] GLUCOSE-HAND MONITOR CAPILLARY Specime n Type: CAPILLARY Comment: Test performed by: [id number] Meter #: [id number] Ordering Provider: FRANCK TURNER Report Released Date/Time: Sep 06, 2024 08:52 PM Reporting Lab: [address] [address] Performing Lab: [address] [address] GLUCOSE-HAND MONITOR 124 mg/dL H -99 Sep 06, 2024 04:27 PM [facility] GLUCOSE-HAND MONITOR CAPILLARY Specime n Type: CAPILLARY Comment: Test performed by: [id number] Meter #: [id number] Ordering Provider: FRANCK TURNER Report Released Date/Time: Sep 06, 2024 05:15 PM Reporting Lab: [address] [address] Performing Lab: [address] [address] GLUCOSE-HAND MONITOR 107 mg/dL H Sep 06, 2024 12:12 PM [facility] GLUCOSE-HAND MONITOR CAPILLARY Specime n Type: CAPILLARY Comment: Test performed by: [id number] Meter #: [id number] Ordering Provider: FRANCK TURNER Report Released Date/Time: Sep 06, 2024 12:29 PM Reporting Lab: [address] [address] Performing Lab: [address] [address] GLUCOSE-HAND MONITOR 181 mg/dL H Sep 06, 2024 06:13 AM [facility] GLUCOSE-HAND MONITOR CAPILLARY Specime n Type: CAPILLARY Comment: Test performed by: [id number] Meter #: [id number] Ordering Provider: FRANCK TURNER Report Released Date/Time: Sep 06, 2024 06:36 AM Reporting Lab: [address] [address] Performing Lab: [address] [address] GLUCOSE-HAND MONITOR 102 mg/dL H Sep 05, 2024 08:47 PM [facility] GLUCOSE-HAND MONITOR CAPILLARY Specime n Type: CAPILLARY Comment: Test performed by: [id number] Meter #: [id number] Ordering Provider: FRANCK TURNER Report Released Date/Time: Sep 06, 2024 02:13 AM Reporting Lab: [address] [address] Performing Lab: [address] [address] GLUCOSE-HAND MONITOR 103 mg/dL H Sep 05, 2024 04:40 PM [facility] GLUCOSE-HAND MONITOR CAPILLARY Specime n Type: CAPILLARY Comment: AAMIR RN notified Test performed by: [id number] Meter #: [id number] Ordering Provider: FRANCK TURNER Report Released Date/Time: Sep 05, 2024 05:11 PM Reporting Lab: [address] [address] Performing Lab: [address] [address] GLUCOSE-HAND MONITOR 113 mg/dL H Sep 05, 2024 12:06 PM [facility] GLUCOSE-HAND MONITOR CAPILLARY Specime n Type: CAPILLARY Comment: Test performed by: [id number] Meter #: [id number] Ordering Provider: FRANCK TURNER Report Released Date/Time: Sep 05, 2024 12:23 PM Reporting Lab: [address] [address] Performing Lab: [address] [address] GLUCOSE-HAND MONITOR 115 mg/dL H Sep 05, 2024 06:26 AM [facility] GLUCOSE-HAND MONITOR CAPILLARY Specime n Type: CAPILLARY Comment: AAMIR Correction Dose Test performed by: [id number] Meter #: [id number] Ordering Provider: FRANCK TURNER Report Released Date/Time: Sep 05, 2024 06:43 AM Reporting Lab: [address] [address] Performing Lab: [address] [address] GLUCOSE-HAND MONITOR 111 mg/dL H Sep 04, 2024 08:59 PM [facility] GLUCOSE-HAND MONITOR CAPILLARY Specime n Type: CAPILLARY Comment: AAMIR RN notified Test performed by: [id number] Meter #: [id number] Ordering Provider: FRANCK TURNER Report Released Date/Time: Sep 04, 2024 09:36 PM Reporting Lab: [address] [address] Performing Lab: [address] [address] GLUCOSE-HAND MONITOR 123 mg/dL H Sep 04, 2024 04:41 PM [facility] GLUCOSE-HAND MONITOR CAPILLARY Specime n Type: CAPILLARY Comment: AAMIR RN notified Test performed by: [id number] Meter #: [id number] Ordering Provider: FRANCK TURNER Report Released Date/Time: Sep 04, 2024 05:03 PM Reporting Lab: [place] [address] Performing Lab: [place] [phone] GLUCOSE-HAND MONITOR 118 mg/dL H 71-99 Sep 04, 2024 12:36 PM [facility] GLUCOSE-HAND MONITOR CAPILLARY Specime n Type: CAPILLARY Comment: AAMIR RN notified Test performed by: [id number] Meter #: [id number] Ordering Provider: FRANCK TURNER Report Released Date/Time: Sep 04, 2024 12:53 PM Reporting Lab: [place] [address] Performing Lab: [address] GLUCOSE-HAND MONITOR 129 mg/dL H -99 Sep 04, 2024 12:03 PM [facility] RESPIRATORY VIRUS PANEL (BIOFIRE) NASOPHARYN X Specimen Type: NASOPHARYNX Comment: ~For Test: RESPIRATORY VIRUS PANEL (BIOFIRE) ~ORDER READ BACK TO: FRANCK TURNER 09/04/24@11:30 Ordering Provider: FRANCK TURNER Report Released Date/Time: Sep 04, 2024 11:33 AM Reporting Lab: [place] [address] Performing Lab: [place] [address] ADENOVIRUS (BIOFIRE) Not Detected -Not D etected [...] Detected Sep 04, 2024 06:55 AM [facility] MAGNESIUM PLASMA Specimen Type: PLASM A [...] 03, 2024 11:10 AM Reporting Lab: [address] [address] Performing Lab: [address] [address] MAGNESIUM 1.8 mg/dL 1.6-2.6 Sep 04, 2024 [...] 03, 2024 11:10 AM Reporting Lab: [address] [address] Performing Lab: [address] [address] CREATININE 0.75 mg/dL 0.72-1.25 UREA NITROGEN 13 [...] n Type: CAPILLARY Comment: Test performed by: [id number] Meter #: [id number] Ordering Provider: FRANCK TURNER Report Released Date/Time: Sep 04, 2024 06:28 AM Reporting Lab: [address] [address] Performing Lab: [address] [address] GLUCOSE-HAND MONITOR 114 mg/dL H 71-99 Sep 03, 2024 05:19 PM [facility] GLUCOSE-HAND MONITOR CAPILLARY Specime n Type: CAPILLARY Comment: Test performed by: [id number] Meter #: [id number] Ordering Provider: FRANCK TURNER Report Released Date/Time: Sep 03, 2024 05:37 PM Reporting Lab: [address] [address] Performing Lab: [address] [address] GLUCOSE-HAND MONITOR 124 mg/dL H 71-99 Sep 03, 2024 04:41 PM [facility] GLUCOSE-HAND MONITOR CAPILLARY Specime n Type: CAPILLARY Comment: Test performed by: [id number] Meter #: [id number] Ordering Provider: FRANCK TURNER Report Released Date/Time: Sep 03, 2024 06:09 PM Reporting Lab: [address] [address] Performing Lab: [address] [address] GLUCOSE-HAND MONITOR 112 mg/dL H 71-99 Sep 03, 2024 01:35 PM [facility] URINE LYTES URINE Specimen Type : URINE Comment: ~Altered mental status with no identifiable cause Ordering Provider: FRANCK TURNER Report Released Date/Time: Sep 02, 2024 04:44 PM Reporting Lab: [address] [address] Performing Lab: [address] [address] SODIUM 130 mmol/L POTASSIUM 47.6 mmol/L CHLORIDE 137 mmol/L Sep 03, 2024 01:35 PM [facility] CREATININE URINE Specimen Type: URINE Comment: ~Altered mental status with no identifiable cause Ordering Provider: FRANCK TURNER Report Released Date/Time: Sep 02, 2024 04:44 PM Reporting Lab: [address] [address] Performing Lab: [address] [address] CREATININE 150.9 mg/dL Sep 03, 2024 01:35 PM [facility] UREA NITROGEN URINE Specimen Type : URINE Comment: ~Altered mental status with no identifiable cause Ordering Provider: FRANCK TURNER Report Released Date/Time: Sep 02, 2024 04:44 PM Reporting Lab: [address] [address] Performing Lab: [address] [address] UREA NITROGEN 320 mg/dL Sep 03, 2024 01:35 PM [facility] URINALYSIS WITH REFLEX TO CULTURE URINE Specimen Type: URINE Comment: ~Altered mental status with no identifiable cause Ordering Provider: FRANCK TURNER Report Released Date/Time: Sep 02, 2024 04:44 PM Reporting Lab: [address] [address] Performing Lab: [address] [address] URINE COLOR Yellow Colorless-Yellow APPEARANCE CLOUDY H [...] 02, 2024 04:44 PM Reporting Lab: [address] [address] Performing Lab: [address] [address] OSMOLALITY 522 mosm/kg 38-1400 Sep 03, 2024 11:58 AM [facility] GLUCOSE-HAND MONITOR CAPILLARY Specime n Type: CAPILLARY Comment: AAMIR RN notified Test performed by: [id number] Meter #: [id number] Ordering Provider: FRANCK TURNER Report Released Date/Time: Sep 03, 2024 12:15 PM Reporting Lab: [address] [address] Performing Lab: [address] [address] GLUCOSE-HAND MONITOR 135 mg/dL H 71-99 Sep 03, 2024 07:09 AM [facility] GLUCOSE-HAND MONITOR CAPILLARY Specime n Type: CAPILLARY Comment: Test performed by: [id number] Meter #: [id number] Ordering Provider: FRANCK TURNER Report Released Date/Time: Sep 03, 2024 07:26 AM Reporting Lab: [address] [address] Performing Lab: [address] [address] GLUCOSE-HAND MONITOR 120 mg/dL H 71-99 Sep 03, 2024 07:05 AM [facility] CBC/PLT BLOOD Specimen Type: BLOOD No comment entered. Ordering Provider: FRANCK TURNER Report Released Date/Time: Sep 02, 2024 04:29 PM Reporting Lab: [address] [address] Performing Lab: [address] [address] WBC 6.9 10*3/uL 5.0-10.0 RBC 3.48 10*6/uL [...] 02, 2024 04:29 PM Reporting Lab: [address] [address] Performing Lab: [address] [address] MAGNESIUM 1.7 mg/dL 1.6-2.6 Sep 03, 2024 [...] 02, 2024 04:29 PM Reporting Lab: [address] [address] Performing Lab: [address] [address] CREATININE 0.82 mg/dL 0.72-1.25 UREA NITROGEN 12 [...] BLOOD Comment: Prediabetes: 5.7%-6.4% Diabetes: >= 6.5% [place] guidelines for A1c interpretation: [...] 8.73 and 9.27. Ref: https://ngsp.org/CAPdata.asp. The in-house tokia.lt D-100 analyzer has a historical CV <= 2%. Contact the laboratory for further performance characteristics of this assay. Ordering Provider: FRANCK TURNER Report Released Date/Time: Sep 02, 2024 04:29 PM Reporting Lab: [address] [address] Performing Lab: [address] [address] GLYCOHEMOGLOBIN 5.6 4.4-5.6 Sep 03, 2024 07:05 AM [facility] OSMOLALITY SERUM Specimen Type: SERUM No comment entered. Ordering Provider: FRANCK TURNER Report Released Date/Time: Sep 02, 2024 04:44 PM Reporting Lab: [address] [address] Performing Lab: [address] [address] OSMOLALITY 271 mosm/kg L 280-300 Sep 02, 2024 08:15 PM [facility] GLUCOSE-HAND MONITOR CAPILLARY Specime n Type: CAPILLARY Comment: AAMIR DEXTER notified Test performed by: [id number] Meter #: [id number] Ordering Provider: FRANCK TURNER Report Released Date/Time: Sep 02, 2024 08:57 PM Reporting Lab: [address] [address] Performing Lab: [address] [address] GLUCOSE-HAND MONITOR 126 mg/dL H 71-99 Sep [...] 02, 2024 05:12 PM Reporting Lab: [address] [address] Performing Lab: [address] [address] MRSA SURVL NARES DNA Negative Negative Sep 02, 2024 05:36 PM [facility] GLUCOSE-HAND MONITOR CAPILLARY Specime n Type: CAPILLARY Comment: Test performed by: [id number] Meter #: [id number] Ordering Provider: FRANCK TURNER Report Released Date/Time: Sep 02, 2024 05:53 PM Reporting Lab: [address] [address] Performing Lab: [address] [address] GLUCOSE-HAND MONITOR 127 mg/dL H 71-99 Aug 29, 2024 10:04 PM [facility] URINALYSIS WITH REFLEX TO CULTURE URINE Specimen Type: URINE Comment: ~For Test: URINALYSIS WITH REFLEX TO CULTURE ~REORDER Ordering Provider: FELISA COLE Report Released Date/Time: Aug 29, 2024 09:36 PM Reporting Lab: [address] [address] Performing Lab: [facility] [address] [facility] [address] URINE COLOR Yellow Colorless-Yellow APPEARANCE Clear Clear [...] /[LPF] 0-28 Aug 29, 2024 08:32 PM [facility] HIGH SENSITIVITY TROPONIN I PLASMA [...] 29, 2024 07:55 PM Reporting Lab: [address] [address] Performing Lab: [address] [address] HIGH SENSITIVITY TROPONIN I 7 4-35 Aug 29, 2024 08:32 PM [facility] CBC/PLT BLOOD Specimen Type: BLOOD No comment entered. Ordering Provider: FELISA COLE Report Released Date/Time: Aug 29, 2024 07:55 PM Reporting Lab: [address] [address] Performing Lab: [address] [address] WBC 11.2 10*3/uL H 5.0-10.0 RBC 3.97 10*6/uL L 4.6-6.2 HGB 10.9 g/dL L 14.0-18.0 HCT 33.5 L 42.0-52.0 MCV 84.4 fL 80.0-94.0 MCH 27.5 pg 27.0-31.0 MCHC 32.5 g/dL 32.0-36.0 PLT 230 10*3/uL 150-450 MPV 10.2 fL 9.0-13.1 RDW 14.6 11.0-16.0 NRBC 0.0 0.0-0.0 Aug 29, 2024 08:32 PM [facility] PANEL 5 PLASMA Specimen Type: [...] 29, 2024 07:55 PM Reporting Lab: [address] [address] Performing Lab: [address] [address] CREATININE 0.85 mg/dL 0.72-1.25 UREA NITROGEN 15 [...] 18 /min 96 % 0 [place] [facility] Sep 08, 2024 09:03 PM 0 [place] [facility] Sep 08, 2024 03:46 PM 97.7 F 76 /min 148/70 mm[Hg] 16 /min 96 % 0 [place] [facility] Sep 08, 2024 11:42 AM 97.4 F 67 /min 125/69 mm[Hg] 92 % [place] [facility] Sep 08, 2024 09:30 AM 0 [place] [facility] Advance Directives: All historical and current [...] 08, 2024 ADVANCE DIRECTIVE DISCUSSION [facility] Radiology Reports: +/- 30 days [...] BRAIN W & W/O: LUIS MANUEL PERDOMO [id number] -1945 M Exm Date: SEP 06, 2024@13:40 Req Phys: FRANCK TURNER [facility] Loc: 5-MED/TEL/09-06-2024@19:09 Img Loc: [facility] Service: [place] [address] (Case [id number] COMPLETE) MRI BRAIN W & W/O (MRI Detailed) CPT:51727 Contrast Media : Gadolinium Reason for Study: SEE CLINICAL HISTORY Pharmaceutical: GADOTERIDOL 279.3MG/ML 20ML INJ, 19ml Clinical History: MRI Screening (Required): IMPLANTED DEVICE DOCUMENTATION IMPLANTED DEVICE DOCUMENTATION NOT FOUND Does the [place] have any Cardiac Implants? None Does the have any implanted stimulators? None Does the have cochlear implants? No Does the [place] have Cerebral aneurysm clip(s)? I don't know Does the have any shrapnel? I don't know If yes, where in your body? Please list other implants not listed above: MRI table has a weight limit of 551 lbs. [place]'s Weight: *212 lb [96.16 kg] (09/04/2024 05:19) Is this patient claustrophobic?: No REASON FOR EXAM:MULTIPLE SCLEROSIS (indicate suspected or established) PERTINENT PATIENT HISTORY: MS c/f for flare Risk factors for GADOLINIUM NEPHROGENIC SYSTEMIC SCLEROSIS: Report Status: Verified Date Reported: SEP 06, 2024 Date Verified: SEP 06, 2024 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 Manager E-Sig: Report: MRI brain without and [...] SIGNIFICANT ABNORMALITY, ATTN NEEDED Primary Interpreting Staff: ARCEINO LEYVA, Staff Radiologist Verified by housekeeping laundry worker for ARCENIO LEYVA /ARCENIO AVILA-[facility] Sep 06, 2024 01:40 PM MRI C SPINE W & W/ O CONTRAST(FURTHER SEQUENCES): LUIS MANUEL PERDOMO [id number] -1945 M Exm Date: SEP 06, 2024@13:40 Req Phys: FRANCK TURNER [facility] Loc: 5-MED/TEL/09-07-2024@06:42 Img Loc: [facility] Service: [place] [address] (Case [id number] COMPLETE) MRI C SPINE W & W/O CONTRAST(FURT(MRI Detailed) CPT:21226 Contrast Media : Gadolinium Reason for Study: SEE CLINICAL HISTORY Pharmaceutical: GADOTERIDOL 279.3MG/ML 20ML INJ, 19ml Clinical History: STATUS OF PLAIN FILMS:Not performed (Provide justification for MR W/O prior plain films below.) MRI for MS MRI Screening (Required): IMPLANTED DEVICE DOCUMENTATION IMPLANTED DEVICE DOCUMENTATION NOT FOUND Does the have any Cardiac Implants? None Does the [place] have any implanted stimulators? None Does the [place] have cochlear implants? No Does the [place] have Cerebral aneurysm clip(s)? I don't know Does the [place] have any shrapnel? I don't know If [...] 07, 2024 Date Verified: SEP 07, 2024 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 Manager E-Sig: Report: EXAMINATION: MRI OF THE [...] Interpreting Staff: HUANG TAI, Radiologist Verified by housekeeping laundry worker for HUANG TAI /HUANG WHEATLEY-MALKA [facility] Sep 03, 2024 10:45 AM CHEST SINGLE(1) EW: LUIS MANUEL PERDOMO [id number] -1945 M Exm Date: SEP 03, 2024@10:45 Req Phys: JOHNNYFRANCK Cuevas Loc: 5-MED/TEL/09-03-2024@10:56 Img Loc: CDD RADIOLOGY Service: MEDICAL SERVICE [place] [id number] (Case [id number] COMPLETE)CHEST SINGLE(1) VIEW (RAD Detailed) CPT:48649 Proc Modifiers : PORTABLE EXAM Reason for Study: Eval volume status Clinical History: Report Status: Verified Date Reported: SEP 03, 2024 Date Verified: SEP 03, 2024 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 [employer] Manager E-Sig: Report: EXAMINATION: SINGLE VIEW CHEST [...] Interpreting Staff: HUANG TAI, Radiologist Verified by housekeeping laundry worker for HUANG TAI /HUANG WHEATLEY-Sav [facility] Aug 29, 2024 08:[address] HEAD W/O CONT: LUIS MANUEL PERDOMO [id number] -1945 M Exm Date: AUG 29, 2024@20:28 Req Phys: FELISA COLE Loc: ED/4P-12A (Req'g Loc) Img Loc: CT SCAN Service: Unknown [place] [id number] (Case [id number] COMPLETE) CT HEAD W/O CONT (CT Detailed) CPT:29178 Reason for Study: SEE CLINICAL HISTORY Clinical History: REASON FOR SEND OUT: ATTENDING PHYSICIAN NAME: New transient neurological s/s - suspected TIA HISTORY/REASON FOR EXAM: confusion Report Status: Verified Date Reported: AUG 29, 2024 Date Verified: AUG 29, 2024 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 Manager E-Sig: Report: HISTORY confusion COMPARISON No [...] Staff: ABDIRAHMAN CROW, Staff Physician Verified by housekeeping laundry worker for ABDIRAHMAN CROW /ABDIRAHMAN [facility] Pathology Reports: +/- 30 days of [...] RE PORT: Reporting Lab: [facility] [CLIA# [id number]] [address] [place] [id number] Accession [UID]: [id number] [[id number]] Received: Sep 03, 2024@14:02 Collection sample: URINE, [...] Bacteriology Report Performed By: [facility] [IA# [id number]] [address] [place] [id number] MAGDY CALABRESE [facility] Sep 02, 2024 06:00 PM LR MICROBIOLOGY RE PORT: Reporting Lab: [facility] [IA# [id number]] [address] [place] [id number] Accession [UID]: [id number] [[id number]] Received: Sep 02, 2024@18:07 Collection sample: BLD CULTURE BOTTLES Collection date: Sep 02, 2024 18:00 Site/Specimen: BLOOD Provider: FRANCK TURNER Comment on specimen: L HAND Test(s) ordered: CULTURE, BLOOD................ completed: Sep 08, 2024 * BACTERIOLOGY FINAL REPORT => Sep 08, 2024 08:25 [facility] CODE: [id number] Bacteriology Remark(s): Blood culture status=NO GROWTH (unless notified otherwise) 09/03/2024 AEROBIC: NO GROWTH ANAEROBIC: NO GROWTH =--=--=--=--=--=--=--=--=--=-- =--=--=--=--=--=--=--=--=--=-- =--=--=--=--=--=-- Performing Laboratory: Bacteriology Report Performed By: [facility] [IA# [id number]] [address] [place] [phone] MAGDY CALABRESE [facility] Aug 29, 2024 10:18 PM LR MICROBIOLOGY RE PORT: Reporting Lab: [facility] [IA# [id number]] [address] [place] [id number] Accession [UID]: [id number] [[id number]] Received: Aug 29, 2024@22:18 Collection sample: URINE, CLEAN CATCH Collection date: Aug 29, 2024 22:18 Site/Specimen: URINE Provider: FELISA COLE Test(s) ordered: CULTURE, URINE................ completed: Aug 31, 2024 09:51 * BACTERIOLOGY FINAL REPORT => Aug 31, 2024 09:51 TECH CODE: [id number] Bacteriology Remark(s): NO GROWTH 08/30/2024 <10,000 CFU/ML. 08/31/2024 =--=--=--=--=--=--=--=--=--=-- =--=--=--=--=--=--=--=--=--=-- =--=--=--=--=--=-- Performing Laboratory: Bacteriology Report Performed By: [facility] [CLIA# [id number]] [address] [place] [id number] MAGDY CALABRESE [facility] Encounter Notes: All associated encounter notes This section contains the clinical notes associated to the Encounter. Date/Time Encounter Note(s) Provider Source Sep 08, 2024 03:32 PM DISCHARGE PLAN: LOCAL TITLE: DISCHARGE PLAN-INTERDISCIPLINARY TEAM STANDARD TITLE: DISCHARGE PLAN DATE OF NOTE: SEP 08, 2024@15:32 ENTRY DATE: SEP 08, 2024@15:32:49 AUTHOR: YOUSUF NEUMANN EXP COSIGNER: URGENCY: STATUS: COMPLETED Interdisciplinary Huddle [...] Planning: status update provided. Per clinical team, Roselle Park is medically stable for discharge today and has JOIE recs. SW spoke with Flo MAZARIEGOS who offered Roselle Park a bed and can accept him on , 09/09. SW made [facility] team aware and they placed BT consult for ambulance transport for tomorrow at 1400. SW attempted to call kamran to update her regarding discharge plan but unable to reach or leave VM. SW v/a holiday coverage SW to assist with discharge planning for tomorrow. No further SW/Discharge planning needs identified at this time. SW will continue to follow as needed while Roselle Park is hospitalized. FINAL DISCHARGE PLAN: [facility] [id number] [phone] Time: 15 minutes Procedure: Case Management Diagnosis: Other problems related to medical facilities and other health care Person awaiting admission to facility elsewhere This provider is receiving ongoing supervision by Diane Suh LCSW, with regard to the mental health treatment of this patient. A total of 1 hour weekly supervision is obtained, and this patient's care is discussed as needed, in compliance with [facility] Directive 1027. /rosette/ YOUSUF NEUMANN Nurseryperson, CSW Signed: 09/08/2024 15:42 Receipt Acknowledged By: 09/09/2024 08:09 /rosette/ Kimberly Chaparro LCSW Acute Care Nurseryperson YOUSUF NEUMANN[facility]
--- OUTSIDE RECORDS SUMMARY | 2024-09-08 05:43 | XMS_ITS ---
[place] DAILY HOSPITALIZATION DATA [facility] Encounter Summary Created on: September 22, 2024 LUIS MANUEL PERDOMO : 1945 Sex: Male Author Name [facility] Organization [facility] Address [address] [place] [address] Care Team Providers Care Blood Or Blood Bank Technician Name Role Phone YULISSA HENDERSON Primary [...] PLAN F Mar 24, 2014 PLAN F [id number] [phone] LUIS MANUEL PERDOMO PATIENT [facility] [place] [facility] PREFERRED PROVIDER ORGANIZAT ION (PPO) [facility] Sep 21, 2012 [id number] LUIS MANUEL PERDOMO PATIENT [employer] ([id number]) PRESCRIPT ION WL3A Sep 21, 2012 [id number] LUIS MANUEL PERDOMO PATIENT MEDICARE (WNR) MEDICARE (M) PART B Sep 21, 2012 PART B [id number] NOEMI PERDOMO PATIENT MEDICARE (WNR) MEDICARE (M) PART A Jan 22, 2011 PART A [id number] LEANNE, NOEMI PATIENT MEDICARE PART D (WNR) MEDICARE (M) PART D Mar 24, 2014 PART D [id number] LUIS MANUEL PERDOMO PATIENT Selected Encounter This section includes the information on record at [place] for the Encounter. Date/Time Encounter Type Encounter Description Reason Pro vider Source Sep 08, 2024 09:43 AM Inpatient Visit DAILY HOSPITALIZATION DATA [facility] Encounter Template Text not used by MS Plan of Treatment: Future Appointments (+ 6 months) and Future Tests (+/- 45 days) The Plan of Treatment section includes [facility] care [facility] the [facility]. This section includes future [...] 13, 2024 08:00 AM AMBULATORY - NONE [facility] Sep 30, 2024 01:30 PM [facility] - SURGERY [facility] Active, Pending, and Scheduled Orders This [...] comes from all [facility] facilities. Test Date/Time Test Type Test Details Facility Name Sep 13, 2024 01:33 PM Consult Order [facility] SKILLED HOME CARE Cons [place] Drier Operator's Choice [facility] Lab Results: [...] Type Comment Sep 09, 2024 12:16 PM [facility] GLUCOSE-HAND MONITOR CAPILLARY Specimen Type: CAPILLARY Comment: Test performed by: [id number] Meter #: [id number] Ordering Provider: FRANCK TURNER Report Released Date/Time: Sep 09, 2024 12:33 PM Reporting Lab: [address] [address] Performing Lab: [address] [address] GLUCOSE-HAND MONITOR 116 mg/dL H Sep 09, 2024 06:07 AM [facility] GLUCOSE-HAND MONITOR CAPILLARY Specime n Type: CAPILLARY Comment: Test performed by: [id number] Meter #: [id number] Ordering Provider: FRANCK TURNER Report Released Date/Time: Sep 09, 2024 08:17 AM Reporting Lab: [address] [address] Performing Lab: [address] [address] GLUCOSE-HAND MONITOR 112 mg/dL H Sep 08, 2024 09:13 PM [facility] GLUCOSE-HAND MONITOR CAPILLARY Specime n Type: CAPILLARY Comment: Test performed by: [id number] Meter #: [id number] Ordering Provider: FRANCK TURNER Report Released Date/Time: Sep 08, 2024 09:31 PM Reporting Lab: [address] [address] Performing Lab: [address] [address] GLUCOSE-HAND MONITOR 107 mg/dL H Sep 08, 2024 03:49 PM [facility] GLUCOSE-HAND MONITOR CAPILLARY Specime n Type: CAPILLARY Comment: AAMIR RN notified Test performed by: [id number] Meter #: [id number] Ordering Provider: FRANCK TURNER Report Released Date/Time: Sep 08, 2024 04:33 PM Reporting Lab: [address] [address] Performing Lab: [address] [address] GLUCOSE-HAND MONITOR 162 mg/dL H Sep 08, 2024 11:43 AM [facility] GLUCOSE-HAND MONITOR CAPILLARY Specime n Type: CAPILLARY Comment: AAMIR RN notified Test performed by: [id number] Meter #: [id number] Ordering Provider: FRANCK TURNER Report Released Date/Time: Sep 08, 2024 12:03 PM Reporting Lab: [address] [address] Performing Lab: [address] [address] GLUCOSE-HAND MONITOR 133 mg/dL H Sep 08, 2024 06:13 AM [facility] GLUCOSE-HAND MONITOR CAPILLARY Specime n Type: CAPILLARY Comment: Test performed by: [id number] Meter #: [id number] Ordering Provider: FRANCK TURNER Report Released Date/Time: Sep 08, 2024 06:46 AM Reporting Lab: [address] [address] Performing Lab: [address] [address] GLUCOSE-HAND MONITOR 104 mg/dL H Sep 07, 2024 07:59 PM [facility] GLUCOSE-HAND MONITOR CAPILLARY Specime n Type: CAPILLARY Comment: Test performed by: [id number] Meter #: [id number] Ordering Provider: FRANCK TURNER Report Released Date/Time: Sep 07, 2024 09:05 PM Reporting Lab: [address] [address] Performing Lab: [address] [address] GLUCOSE-HAND MONITOR 107 mg/dL H Sep 07, 2024 04:39 PM [facility] GLUCOSE-HAND MONITOR CAPILLARY Specime n Type: CAPILLARY Comment: Test performed by: [id number] Meter #: [id number] Ordering Provider: FRANCK TURNER Report Released Date/Time: Sep 07, 2024 05:09 PM Reporting Lab: [address] [address] Performing Lab: [address] [address] GLUCOSE-HAND MONITOR 105 mg/dL H Sep 07, 2024 11:41 AM [facility] GLUCOSE-HAND MONITOR CAPILLARY Specime n Type: CAPILLARY Comment: Test performed by: [id number] Meter #: [id number] Ordering Provider: FRANCK TURNER Report Released Date/Time: Sep 07, 2024 12:41 PM Reporting Lab: [address] [address] Performing Lab: [address] [address] GLUCOSE-HAND MONITOR 144 mg/dL H Sep 07, 2024 05:56 AM [facility] GLUCOSE-HAND MONITOR CAPILLARY Specime n Type: CAPILLARY Comment: Test performed by: [id number] Meter #: [id number] Ordering Provider: FRANCK TURNER Report Released Date/Time: Sep 07, 2024 06:31 AM Reporting Lab: [address] [address] Performing Lab: [address] [address] GLUCOSE-HAND MONITOR 96 mg/dL Sep 06, 2024 08:10 PM [facility] GLUCOSE-HAND MONITOR CAPILLARY Specime n Type: CAPILLARY Comment: Test performed by: [id number] Meter #: [id number] Ordering Provider: FRANCK TURNER Report Released Date/Time: Sep 06, 2024 08:52 PM Reporting Lab: [address] [address] Performing Lab: [address] [address] GLUCOSE-HAND MONITOR 124 mg/dL H Sep 06, 2024 04:27 PM [facility] GLUCOSE-HAND MONITOR CAPILLARY Specime n Type: CAPILLARY Comment: Test performed by: [id number] Meter #: [id number] Ordering Provider: FRANCK TURNER Report Released Date/Time: Sep 06, 2024 05:15 PM Reporting Lab: [address] [address] Performing Lab: [address] [address] GLUCOSE-HAND MONITOR 107 mg/dL H Sep 06, 2024 12:12 PM [facility] GLUCOSE-HAND MONITOR CAPILLARY Specime n Type: CAPILLARY Comment: Test performed by: [id number] Meter #: [id number] Ordering Provider: FRANCK TURNER Report Released Date/Time: Sep 06, 2024 12:29 PM Reporting Lab: [address] [address] Performing Lab: [address] [address] GLUCOSE-HAND MONITOR 181 mg/dL H -Sep 06, 2024 06:13 AM [facility] GLUCOSE-HAND MONITOR CAPILLARY Specime n Type: CAPILLARY Comment: Test performed by: [id number] Meter #: [id number] Ordering Provider: FRANCK TURNER Report Released Date/Time: Sep 06, 2024 06:36 AM Reporting Lab: [address] [address] Performing Lab: [address] [address] GLUCOSE-HAND MONITOR 102 mg/dL H Sep 05, 2024 08:47 PM [facility] GLUCOSE-HAND MONITOR CAPILLARY Specime n Type: CAPILLARY Comment: Test performed by: [id number] Meter #: [id number] Ordering Provider: FRANCK TURNER Report Released Date/Time: Sep 06, 2024 02:13 AM Reporting Lab: [address] [address] Performing Lab: [address] [address] GLUCOSE-HAND MONITOR 103 mg/dL H Sep 05, 2024 04:40 PM [facility] GLUCOSE-HAND MONITOR CAPILLARY Specime n Type: CAPILLARY Comment: AAMIR RN notified Test performed by: [id number] Meter #: [id number] Ordering Provider: FRANCK TURNER Report Released Date/Time: Sep 05, 2024 05:11 PM Reporting Lab: [address] [address] Performing Lab: [address] [address] GLUCOSE-HAND MONITOR 113 mg/dL H Sep 05, 2024 12:06 PM [facility] GLUCOSE-HAND MONITOR CAPILLARY Specime n Type: CAPILLARY Comment: Test performed by: [id number] Meter #: [id number] Ordering Provider: FRANCK TURNER Report Released Date/Time: Sep 05, 2024 12:23 PM Reporting Lab: [address] [address] Performing Lab: [address] [address] GLUCOSE-HAND MONITOR 115 mg/dL H Sep 05, 2024 06:26 AM [facility] GLUCOSE-HAND MONITOR CAPILLARY Specime n Type: CAPILLARY Comment: AAMIR Correction Dose Test performed by: [id number] Meter #: [id number] Ordering Provider: FRANCK TURNER Report Released Date/Time: Sep 05, 2024 06:43 AM Reporting Lab: [address] [address] Performing Lab: [address] [address] GLUCOSE-HAND MONITOR 111 mg/dL H Sep 04, 2024 08:59 PM [facility] GLUCOSE-HAND MONITOR CAPILLARY Specime n Type: CAPILLARY Comment: AAMIR RN notified Test performed by: [id number] Meter #: [id number] Ordering Provider: FRANCK TURNER Report Released Date/Time: Sep 04, 2024 09:36 PM Reporting Lab: [address] [address] Performing Lab: [address] [address] GLUCOSE-HAND MONITOR 123 mg/dL H Sep 04, 2024 04:41 PM [facility] GLUCOSE-HAND MONITOR CAPILLARY Specime n Type: CAPILLARY Comment: AAMIR RN notified Test performed by: [id number] Meter #: [id number] Ordering Provider: FRANCK TURNER Report Released Date/Time: Sep 04, 2024 05:03 PM Reporting Lab: [address] [address] Performing Lab: [address] [address] GLUCOSE-HAND MONITOR 118 mg/dL H Sep 04, 2024 12:36 PM [facility] GLUCOSE-HAND MONITOR CAPILLARY Specime n Type: CAPILLARY Comment: AAMIR RN notified Test performed by: [id number] Meter #: [id number] Ordering Provider: FRANCK TURNER Report Released Date/Time: Sep 04, 2024 12:53 PM Reporting Lab: [address] [address] Performing Lab: [place] [address] GLUCOSE-HAND MONITOR 129 mg/dL H 71-99 Sep 04, 2024 12:03 PM [facility] RESPIRATORY VIRUS PANEL (BIOFIRE) NASOPHARYN X Specimen Type: NASOPHARYNX Comment: ~For Test: RESPIRATORY VIRUS PANEL (BIOFIRE) ~ORDER READ BACK TO: FRANCK TURNER 09/04/24@11:30 Ordering Provider: FRANCK TURNER Report Released Date/Time: Sep 04, 2024 11:33 AM Reporting Lab: [place] [id number] Performing Lab: [place] [phone] ADENOVIRUS (BIOFIRE) Not Detected -Not D etected [...] Reporting Lab: [place] [facility] [address] [facility] [address] Performing Lab: [place] [address] [facility] [address] MAGNESIUM 1.8 mg/dL 1.6-2.6 Sep 04, 2024 [...] 03, 2024 11:10 AM Reporting Lab: [address] [address] Performing Lab: [address] CREATININE 0.75 mg/dL 0.72-1.25 UREA [...] n Type: CAPILLARY Comment: Test performed by: [id number] Meter #: [id number] Ordering Provider: FRANCK TURNER Report Released Date/Time: Sep 04, 2024 06:28 AM Reporting Lab: [address] Performing Lab: [address] GLUCOSE-HAND MONITOR 114 mg/dL H 71-99 Sep 03, 2024 05:19 PM [facility] GLUCOSE-HAND MONITOR CAPILLARY Specime n Type: CAPILLARY Comment: Test performed by: [id number] Meter #: [id number] Ordering Provider: FRANCK TURNER Report Released Date/Time: Sep 03, 2024 05:37 PM Reporting Lab: [address] Performing Lab: [address] [address] GLUCOSE-HAND MONITOR 124 mg/dL H 71-99 Sep 03, 2024 04:41 PM [facility] GLUCOSE-HAND MONITOR CAPILLARY Specime n Type: CAPILLARY Comment: Test performed by: [id number] Meter #: [id number] Ordering Provider: FRANCK TURNER Report Released Date/Time: Sep 03, 2024 06:09 PM Reporting Lab: [address] [address] Performing Lab: [address] [address] GLUCOSE-HAND MONITOR 112 mg/dL H 71-99 Sep 03, 2024 01:35 PM [facility] URINE LYTES URINE Specimen Type : URINE Comment: ~Altered mental status with no identifiable cause Ordering Provider: FRANCK TURNER Report Released Date/Time: Sep 02, 2024 04:44 PM Reporting Lab: [address] [address] Performing Lab: [address] [address] SODIUM 130 mmol/L POTASSIUM 47.6 mmol/L CHLORIDE 137 mmol/L Sep 03, 2024 01:35 PM [facility] CREATININE URINE Specimen Type: URINE Comment: ~Altered mental status with no identifiable cause Ordering Provider: FRANCK TURNER Report Released Date/Time: Sep 02, 2024 04:44 PM Reporting Lab: [address] [address] Performing Lab: [address] [address] CREATININE 150.9 mg/dL Sep 03, 2024 01:35 PM [facility] URINALYSIS WITH REFLEX TO CULTURE URINE Specimen Type: URINE Comment: ~Altered mental status with no identifiable cause Ordering Provider: FRANCK TURNER Report Released Date/Time: Sep 02, 2024 04:44 PM Reporting Lab: [address] [address] Performing Lab: [address] [address] URINE COLOR Yellow Colorless-Yellow APPEARANCE CLOUDY H [...] 02, 2024 04:44 PM Reporting Lab: [address] [address] Performing Lab: [address] [address] UREA NITROGEN 320 mg/dL Sep 03, 2024 01:35 PM [facility] OSMOLALITY URINE Specimen Type: URINE Comment: ~Altered mental status with no identifiable cause Ordering Provider: FRANCK TURNER Report Released Date/Time: Sep 02, 2024 04:44 PM Reporting Lab: [address] [address] Performing Lab: [place] [id number] OSMOLALITY 522 mosm/kg 38-1400 Sep 03, 2024 11:58 AM [facility] GLUCOSE-HAND MONITOR CAPILLARY Specime n Type: CAPILLARY Comment: AAMIR RN notified Test performed by: [id number] Meter #: [id number] Ordering Provider: FRANCK TURNER Report Released Date/Time: Sep 03, 2024 12:15 PM Reporting Lab: [address] [address] Performing Lab: [address] [address] GLUCOSE-HAND MONITOR 135 mg/dL H -Sep 03, 2024 07:09 AM [facility] GLUCOSE-HAND MONITOR CAPILLARY Specime n Type: CAPILLARY Comment: Test performed by: [id number] Meter #: [id number] Ordering Provider: FRANCK TURNER Report Released Date/Time: Sep 03, 2024 07:26 AM Reporting Lab: [address] [address] Performing Lab: [address] [address] GLUCOSE-HAND MONITOR 120 mg/dL H -Sep 03, 2024 07:05 AM [facility] CBC/PLT BLOOD Specimen Type: BLOOD No comment entered. Ordering Provider: FRANCK TURNER Report Released Date/Time: Sep 02, 2024 04:29 PM Reporting Lab: [address] [address] Performing Lab: [address] [address] WBC 6.9 10*3/uL 5.0-10.0 RBC 3.48 10*6/uL [...] 02, 2024 04:29 PM Reporting Lab: [address] [address] Performing Lab: [address] [address] MAGNESIUM 1.7 mg/dL 1.6-2.6 Sep 03, 2024 07:05 AM [facility] GLYCOHEMOGLOBIN BLOOD Specimen Type: BLOOD Comment: Prediabetes: 5.7%-6.4% Diabetes: >= 6.5% [facility] guidelines for A1c interpretation: Glycemic control targets [...] 8.73 and 9.27. Ref: https://ngsp.org/CAPdata.asp. The in-house [employer] D-100 analyzer has a historical CV <= 2%. Contact the laboratory for further performance characteristics of this assay. Ordering Provider: ALSIP,FRANCK ROBERTDAVID Report Released Date/Time: Sep 02, 2024 04:29 PM Reporting Lab: [facility] [address] [facility] [address] Performing Lab: [address] [address] GLYCOHEMOGLOBIN 5.6 4.4-5.6 Sep 03, 2024 07:05 [...] 02, 2024 04:29 PM Reporting Lab: [address] [address] Performing Lab: [address] [address] CREATININE 0.82 mg/dL 0.72-1.25 UREA NITROGEN 12 [...] 02, 2024 04:44 PM Reporting Lab: [address] [address] Performing Lab: [address] [address] OSMOLALITY 271 mosm/kg L 280-300 Sep 02, 2024 08:15 PM [facility] GLUCOSE-HAND MONITOR CAPILLARY Specime n Type: CAPILLARY Comment: AAMIR DEXTER notified Test performed by: [id number] Meter #: [id number] Ordering Provider: FRANCK TURNER Report Released Date/Time: Sep 02, 2024 08:57 PM Reporting Lab: [address] [address] Performing Lab: [address] [address] GLUCOSE-HAND MONITOR 126 mg/dL H 71-99 Sep [...] 02, 2024 05:12 PM Reporting Lab: [address] [address] Performing Lab: [address] [address] MRSA SURVL NARES DNA Negative Negative Sep 02, 2024 05:36 PM [facility] GLUCOSE-HAND MONITOR CAPILLARY Specime n Type: CAPILLARY Comment: Test performed by: [id number] Meter #: [id number] Ordering Provider: FRANCK TURNER Report Released Date/Time: Sep 02, 2024 05:53 PM Reporting Lab: [address] [address] Performing Lab: [address] [address] GLUCOSE-HAND MONITOR 127 mg/dL H 71-99 Aug 29, 2024 10:04 PM [facility] URINALYSIS WITH REFLEX TO CULTURE URINE Specimen Type: URINE Comment: ~For Test: URINALYSIS WITH REFLEX TO CULTURE ~REORDER Ordering Provider: FELISA COLE Report Released Date/Time: Aug 29, 2024 09:36 PM Reporting Lab: [address] [address] Performing Lab: [address] [address] URINE COLOR Yellow Colorless-Yellow APPEARANCE Clear Clear [...] 29, 2024 07:55 PM Reporting Lab: [address] [address] Performing Lab: [address] [address] HIGH SENSITIVITY TROPONIN I 7 4-35 Aug 29, 2024 08:32 PM [facility] CBC/PLT BLOOD Specimen Type: BLOOD No comment entered. Ordering Provider: FELISA COLE Report Released Date/Time: Aug 29, 2024 07:55 PM Reporting Lab: [address] [address] Performing Lab: [address] [address] WBC 11.2 10*3/uL H 5.0-10.0 RBC 3.97 [...] 29, 2024 07:55 PM Reporting Lab: [address] [address] Performing Lab: [address] [address] CREATININE 0.85 mg/dL 0.72-1.25 UREA NITROGEN 15 [...] 18 /min 96 % 0 [place] Sep 08, 2024 09:03 PM 0 [place] Sep 08, 2024 03:46 PM 97.7 F 76 /min 148/70 mm[Hg] 16 /min 96 % 0 [place] Sep 08, 2024 11:42 AM 97.4 F 67 /min 125/69 mm[Hg] 92 % [place] Sep 08, 2024 09:30 AM 0 [place] Advance [...] 08, 2024 ADVANCE DIRECTIVE DISCUSSION [facility] Radiology Reports: +/- 30 days [...] BRAIN W & W/O: LUIS MANUEL PERDOMO [id number] -1945 M Exm Date: SEP 06, 2024@13:40 Req Phys: FRANCK TURNER [facility] Loc: 5-MED/TEL/09-06-2024@19:09 Img Loc: [facility] Service: [place] [address] (Case [id number] COMPLETE) MRI BRAIN W & W/O (MRI Detailed) CPT:50020 Contrast Media : Gadolinium Reason for Study: SEE CLINICAL HISTORY Pharmaceutical: GADOTERIDOL 279.3MG/ML 20ML INJ, 19ml Clinical History: MRI Screening (Required): IMPLANTED DEVICE DOCUMENTATION IMPLANTED DEVICE DOCUMENTATION NOT FOUND Does the [place] have any Cardiac Implants? None Does the have any implanted stimulators? None Does the [place] have cochlear implants? No Does the have Cerebral aneurysm clip(s)? I don't know Does the [place] have any shrapnel? I don't know If [...] 06, 2024 Date Verified: SEP 06, 2024 Stoper E-Sig: Report: MRI brain without and with [...] Staff: ARCENIO LEYVA, Staff Radiologist Verified by stem roller operator for ARCENIO LEYVA /ARCENIO AVILA[facility] Sep 06, 2024 01:40 PM MRI C SPINE W & W/ O CONTRAST(FURTHER SEQUENCES): LUIS MANUEL PERDOMO [id number] -1945 M Exm Date: SEP 06, 2024@13:40 Req Phys: FRANCK TURNER Pat Loc: 5-MED/TEL/09-07-2024@06:42 Img Loc: [facility] Service: [place] [address] (Case [id number] COMPLETE) MRI C SPINE W & W/O CONTRAST(FURT(MRI Detailed) CPT:61144 Contrast Media : Gadolinium Reason for Study: SEE CLINICAL HISTORY Pharmaceutical: GADOTERIDOL 279.3MG/ML 20ML INJ, 19ml Clinical History: STATUS OF PLAIN FILMS:Not performed (Provide justification for MR W/O prior plain films below.) MRI for MS MRI Screening (Required): IMPLANTED DEVICE DOCUMENTATION IMPLANTED DEVICE DOCUMENTATION NOT FOUND Does the [place] have any Cardiac Implants? None Does the [place] have any implanted stimulators? None Does the have cochlear implants? No Does the [place] have Cerebral aneurysm clip(s)? I don't know Does the [place] have any shrapnel? I don't know If [...] 07, 2024 Date Verified: SEP 07, 2024 Stoper E-Sig: Report: EXAMINATION: MRI OF THE CERVICAL [...] Interpreting Staff: HUANG TAI, Radiologist Verified by stem roller operator for HUANG TAI /HUANG [place]-[facility] Sep 03, 2024 10:45 AM CHEST SINGLE(1) EW: LUIS MANUEL PERDOMO [id number] -1945 M Exm Date: SEP 03, 2024@10:45 Req Phys: FRANCK TURNER Pat Loc: 5-MED/TEL/09-03-2024@10:56 Img Loc: [facility] RADIOLOGY Service: [place] [address] (Case [id number] COMPLETE)CHEST SINGLE(1) VIEW (RAD Detailed) CPT:81438 Proc Modifiers : PORTABLE EXAM Reason for Study: Eval volume status Clinical History: Report Status: Verified Date Reported: SEP 03, 2024 Date Verified: SEP 03, 2024 Stoper E-Sig: Report: EXAMINATION: SINGLE VIEW CHEST CLINICAL [...] Interpreting Staff: HUANG TAI, Radiologist Verified by stem roller operator for HUANG TAI /HUANG [place] Aug 29, 2024 08:[address] HEAD W/O CONT: LUIS MANUEL PERDOMO [id number] -1945 M Exm Date: AUG 29, 2024@20:28 Req Phys: FELISA COLE Loc: ED/4P-12A (Req'g Loc) Img Loc: CT SCAN Service: Unknown [place] [id number] (Case [id number] COMPLETE) CT HEAD W/O CONT (CT Detailed) CPT:15386 Reason for Study: SEE CLINICAL HISTORY Clinical History: REASON FOR SEND OUT: ATTENDING PHYSICIAN NAME: New transient neurological s/s - suspected TIA HISTORY/REASON FOR EXAM: confusion Report Status: Verified Date Reported: AUG 29, 2024 Date Verified: AUG 29, 2024 Stoper E-Sig: Report: HISTORY confusion COMPARISON No prior [...] Staff: ABDIRAHMAN CROW, Staff Physician Verified by stem roller operator for ABDIRAHMAN CROW /ABDIRAHMAN [facility] Pathology Reports: +/- 30 days of [...] Reporting Lab: [facility] [CLIA# [id number]] [address] [place] [id number] Accession [UID]: [id number] [[id number]] Received: Sep 03, 2024@14:02 Collection sample: URINE, [...] Performed By: [facility] [CLIA# [id number]] [address] [place] [id number] BHARATI,MAGDY D [facility] Sep 02, 2024 06:00 PM LR MICROBIOLOGY RE PORT: Reporting Lab: [facility] [CLIA# [id number]] [address] [place] [address] Accession [UID]: [id number] [[id number]] Received: Sep 02, 2024@18:07 Collection sample: BLD CULTURE BOTTLES Collection date: Sep 02, 2024 18:00 Site/Specimen: BLOOD Provider: FRANCK TURNER Comment on specimen: L HAND Test(s) ordered: CULTURE, BLOOD................ completed: Sep 08, 2024 * BACTERIOLOGY FINAL REPORT => Sep 08, 2024 08:25 TECH CODE: [id number] Bacteriology Remark(s): Blood culture status=NO GROWTH (unless notified otherwise) 09/03/2024 AEROBIC: NO GROWTH ANAEROBIC: NO GROWTH =--=--=--=--=--=--=--=--=--=-- =--=--=--=--=--=--=--=--=--=-- =--=--=--=--=--=-- Performing Laboratory: Bacteriology Report Performed By: [facility] [CLIA# [id number]] [address] [place], [place] [id number] MAGDY CALABRESE [facility] Aug 29, 2024 10:18 PM LR MICROBIOLOGY RE PORT: Reporting Lab: [facility] [CLIA# [id number]] [address] [place], [place] [id number] Accession [UID]: [id number] [[id number]] Received: Aug 29, 2024@22:18 Collection sample: URINE, CLEAN CATCH Collection date: Aug 29, 2024 22:18 Site/Specimen: URINE Provider: FELISA COLE Test(s) ordered: CULTURE, URINE................ completed: Aug 31, 2024 09:51 * BACTERIOLOGY FINAL REPORT => Aug 31, 2024 09:51 TECH CODE: [id number] Bacteriology Remark(s): NO GROWTH 08/30/2024 <10,000 CFU/ML. 08/31/2024 =--=--=--=--=--=--=--=--=--=-- =--=--=--=--=--=--=--=--=--=-- =--=--=--=--=--=-- Performing Laboratory: Bacteriology Report Performed By: [facility] [CLIA# [id number]] [address] [place] [address] MAGDY CALABRESE-Sav [facility]
--- OUTSIDE RECORDS SUMMARY | 2024-09-08 06:35 | XMS_ITS | Encounter Summary ---
Author Name [facility] [place] [place] [facility] [place] Address [address] [place] [address] Care Team Providers Care Contracts Attorney Name Role Phone YULISSA HENDERSON Primary Care [...] PLAN F Mar 24, 2014 PLAN F [id number] LUIS MANUEL PERDOMO PATIENT [facility] [place] [facility] PREFERRED PROVIDER ORGANIZAT ION (PPO) [facility] Sep 21, 2012 [id number] LUIS MANUEL PERDOMO PATIENT [employer] [facility] ([id number]) PRESCRIPT ION [id number] Sep 21, 2012 [id number] LUIS MANUEL PERDOMO PATIENT MEDICARE (WNR) MEDICARE (M) PART B Sep 21, 2012 PART B [id number] NOEMI PERDOMO PATIENT MEDICARE (WNR) MEDICARE (M) PART A Jan 22, 2011 PART A [id number] NOEMI PERDOMO PATIENT MEDICARE PART D (WNR) MEDICARE (M) PART D Mar 24, 2014 PART D [id number] LUIS MANUEL PERDOMO PATIENT Selected Encounter This section includes the information [place] at [place] for the Encounter. Date/Time Encounter Type Encounter Description Reason Provider Source Sep 08, 2024 10:35 AM [id number] ICD-10-CM Z51.81 Encounter for therapeutic drug level monitoring GENIA MARIN Stephen Encounter Template Text not used by [place] Assessments - Encounter Diagnoses This section includes the primary and secondary diagnoses documented for the Encounter. Date/Time Primary/Secondary Diagnosis Diagnosis Name Provider Source Sep 09, 2024 07:35 AM PRIMARY Encounter for therapeutic drug level monitoring GENIA MARIN [facility] Sep 09, 2024 07:35 AM SECONDARY Other [facility]current[facility] drug therapy GENIA MARIN [facility] Plan of Treatment: Future Appointments (+ 6 months) and Future Tests (+/- 45 days) The Plan of Treatment section includes future care activities for the patient [facility] [place] [facility]. This section includes future appointments and [...] 08:00 AM AMBULATORY - NONE [place] [facility] Sep 30, 2024 01:30 PM AMBULATORY - SURGERY [place] [facility] Active, Pending, and Scheduled Orders [...] The data comes from all [place] treatment [facility]. Test Date/Time Test Type Test Details Facility Name Sep 13, 2024 01:33 PM Consult Order [facility] Cons Clipping Marker's Choice [facility] Lab Results: +/- 30 days [...] Specimen Type: CAPILLARY Comment: Test performed by: [id number] Meter #: [id number] Ordering Provider: FRANCK TURNER Report Released Date/Time: Sep 09, 2024 12:33 PM Reporting Lab: [address] [address] Performing Lab: [address] [address] GLUCOSE-HAND MONITOR 116 mg/dL H -Sep 09, 2024 06:07 AM [facility] GLUCOSE-HAND MONITOR CAPILLARY Specime n Type: CAPILLARY Comment: Test performed by: [id number] Meter #: [id number] Ordering Provider: FRANCK TURNER Report Released Date/Time: Sep 09, 2024 08:17 AM Reporting Lab: [address] [address] Performing Lab: [address] [address] GLUCOSE-HAND MONITOR 112 mg/dL H -Sep 08, 2024 09:13 PM [facility] GLUCOSE-HAND MONITOR CAPILLARY Specime n Type: CAPILLARY Comment: Test performed by: [id number] Meter #: [id number] Ordering Provider: FRANCK TURNER Report Released Date/Time: Sep 08, 2024 09:31 PM Reporting Lab: [address] [address] Performing Lab: [address] [address] GLUCOSE-HAND MONITOR 107 mg/dL H -Sep 08, 2024 03:49 PM [facility] GLUCOSE-HAND MONITOR CAPILLARY Specime n Type: CAPILLARY Comment: AAMIR RN notified Test performed by: [id number] Meter #: [id number] Ordering Provider: FRANCK TURNER Report Released Date/Time: Sep 08, 2024 04:33 PM Reporting Lab: [address] [address] Performing Lab: [address] [address] GLUCOSE-HAND MONITOR 162 mg/dL H Sep 08, 2024 11:43 AM [facility] GLUCOSE-HAND MONITOR CAPILLARY Specime n Type: CAPILLARY Comment: AAMIR RN notified Test performed by: [id number] Meter #: [id number] Ordering Provider: FRANCK TURNER Report Released Date/Time: Sep 08, 2024 12:03 PM Reporting Lab: [address] [address] Performing Lab: [address] [address] GLUCOSE-HAND MONITOR 133 mg/dL H Sep 08, 2024 06:13 AM [facility] GLUCOSE-HAND MONITOR CAPILLARY Specime n Type: CAPILLARY Comment: Test performed by: [id number] Meter #: [id number] Ordering Provider: FRANCK TURNER Report Released Date/Time: Sep 08, 2024 06:46 AM Reporting Lab: [address] [address] Performing Lab: [address] [address] GLUCOSE-HAND MONITOR 104 mg/dL H Sep 07, 2024 07:59 PM [facility] GLUCOSE-HAND MONITOR CAPILLARY Specime n Type: CAPILLARY Comment: Test performed by: [id number] Meter #: [id number] Ordering Provider: FRANCK TURNER Report Released Date/Time: Sep 07, 2024 09:05 PM Reporting Lab: [address] [address] Performing Lab: [address] [address] GLUCOSE-HAND MONITOR 107 mg/dL H Sep 07, 2024 04:39 PM [facility] GLUCOSE-HAND MONITOR CAPILLARY Specime n Type: CAPILLARY Comment: Test performed by: [id number] Meter #: [id number] Ordering Provider: FRANCK TURNER Report Released Date/Time: Sep 07, 2024 05:09 PM Reporting Lab: [address] [address] Performing Lab: [address] [address] GLUCOSE-HAND MONITOR 105 mg/dL H Sep 07, 2024 11:41 AM [facility] GLUCOSE-HAND MONITOR CAPILLARY Specime n Type: CAPILLARY Comment: Test performed by: [id number] Meter #: [id number] Ordering Provider: FRANCK TURNER Report Released Date/Time: Sep 07, 2024 12:41 PM Reporting Lab: [address] [address] Performing Lab: [place] [phone] GLUCOSE-HAND MONITOR 144 mg/dL H Sep 07, 2024 05:56 AM [facility] GLUCOSE-HAND MONITOR CAPILLARY Specime n Type: CAPILLARY Comment: Test performed by: [id number] Meter #: [id number] Ordering Provider: FRANCK TURNER Report Released Date/Time: Sep 07, 2024 06:31 AM Reporting Lab: [address] [address] Performing Lab: [address] [address] GLUCOSE-HAND MONITOR 96 mg/dL Sep 06, 2024 08:10 PM [facility] GLUCOSE-HAND MONITOR CAPILLARY Specime n Type: CAPILLARY Comment: Test performed by: [id number] Meter #: [id number] Ordering Provider: FRANCK TURNER Report Released Date/Time: Sep 06, 2024 08:52 PM Reporting Lab: [address] [address] Performing Lab: [address] [address] GLUCOSE-HAND MONITOR 124 mg/dL H Sep 06, 2024 04:27 PM [facility] GLUCOSE-HAND MONITOR CAPILLARY Specime n Type: CAPILLARY Comment: Test performed by: [id number] Meter #: [id number] Ordering Provider: FRANCK TURNER Report Released Date/Time: Sep 06, 2024 05:15 PM Reporting Lab: [address] [address] Performing Lab: [address] [address] GLUCOSE-HAND MONITOR 107 mg/dL H Sep 06, 2024 12:12 PM [facility] GLUCOSE-HAND MONITOR CAPILLARY Specime n Type: CAPILLARY Comment: Test performed by: [id number] Meter #: [id number] Ordering Provider: FRANCK TURNER Report Released Date/Time: Sep 06, 2024 12:29 PM Reporting Lab: [address] [address] Performing Lab: [address] [address] GLUCOSE-HAND MONITOR 181 mg/dL H Sep 06, 2024 06:13 AM [facility] GLUCOSE-HAND MONITOR CAPILLARY Specime n Type: CAPILLARY Comment: Test performed by: [id number] Meter #: [id number] Ordering Provider: FRANCK TURNER Report Released Date/Time: Sep 06, 2024 06:36 AM Reporting Lab: [address] [address] Performing Lab: [address] [address] GLUCOSE-HAND MONITOR 102 mg/dL H Sep 05, 2024 08:47 PM [facility] GLUCOSE-HAND MONITOR CAPILLARY Specime n Type: CAPILLARY Comment: Test performed by: [id number] Meter #: [id number] Ordering Provider: FRANCK TURNER Report Released Date/Time: Sep 06, 2024 02:13 AM Reporting Lab: [address] [address] Performing Lab: [address] [address] GLUCOSE-HAND MONITOR 103 mg/dL H Sep 05, 2024 04:40 PM [facility] GLUCOSE-HAND MONITOR CAPILLARY Specime n Type: CAPILLARY Comment: AAMIR RN notified Test performed by: [id number] Meter #: [id number] Ordering Provider: FRANCK TURNER Report Released Date/Time: Sep 05, 2024 05:11 PM Reporting Lab: [address] [address] Performing Lab: [address] [address] GLUCOSE-HAND MONITOR 113 mg/dL H Sep 05, 2024 12:06 PM [facility] GLUCOSE-HAND MONITOR CAPILLARY Specime n Type: CAPILLARY Comment: Test performed by: [id number] Meter #: [id number] Ordering Provider: FRANCK TURNER Report Released Date/Time: Sep 05, 2024 12:23 PM Reporting Lab: [address] [address] Performing Lab: [address] [address] GLUCOSE-HAND MONITOR 115 mg/dL H Sep 05, 2024 06:26 AM [facility] GLUCOSE-HAND MONITOR CAPILLARY Specime n Type: CAPILLARY Comment: AAMIR Correction Dose Test performed by: [id number] Meter #: [id number] Ordering Provider: FRANCK TURNER Report Released Date/Time: Sep 05, 2024 06:43 AM Reporting Lab: [address] [address] Performing Lab: [address] [address] GLUCOSE-HAND MONITOR 111 mg/dL H Sep 04, 2024 08:59 PM [facility] GLUCOSE-HAND MONITOR CAPILLARY Specime n Type: CAPILLARY Comment: AAMIR RN notified Test performed by: [id number] Meter #: [id number] Ordering Provider: FRANCK TURNER Report Released Date/Time: Sep 04, 2024 09:36 PM Reporting Lab: [address] [address] Performing Lab: [address] [address] GLUCOSE-HAND MONITOR 123 mg/dL H Sep 04, 2024 04:41 PM [facility] GLUCOSE-HAND MONITOR CAPILLARY Specime n Type: CAPILLARY Comment: AAMIR RN notified Test performed by: [id number] Meter #: [id number] Ordering Provider: FRANCK TURNER Report Released Date/Time: Sep 04, 2024 05:03 PM Reporting Lab: [place] [phone] Performing Lab: [place] [phone] GLUCOSE-HAND MONITOR 118 mg/dL H Sep 04, 2024 12:36 PM [facility] GLUCOSE-HAND MONITOR CAPILLARY Specime n Type: CAPILLARY Comment: AAMIR RN notified Test performed by: [id number] Meter #: [id number] Ordering Provider: FRANCK TURNER Report Released Date/Time: Sep 04, 2024 12:53 PM Reporting Lab: [place] [phone] Performing Lab: [address] GLUCOSE-HAND MONITOR 129 mg/dL H Sep 04, 2024 12:03 PM [facility] RESPIRATORY VIRUS PANEL (BIOFIRE) NASOPHARYN X Specimen Type: NASOPHARYNX Comment: ~For Test: RESPIRATORY VIRUS PANEL (BIOFIRE) ~ORDER READ BACK TO: FRANCK TURNER 09/04/24@11:30 Ordering Provider: FRANCK TURNER Report Released Date/Time: Sep 04, 2024 11:33 AM Reporting Lab: [place] [phone] Performing Lab: [place] [address] ADENOVIRUS (BIOFIRE) Not Detected -Not D etected [...] Detected Sep 04, 2024 06:55 AM [facility] MAGNESIUM PLASMA Specimen Type: PLASM [...] Sep 03, 2024 11:10 AM Reporting Lab: [address] [address] Performing Lab: [address] [address] MAGNESIUM 1.8 mg/dL 1.6-2.6 Sep 04, 2024 06:55 AM [facility] PANEL 1 PLASMA Specimen Type: [...] Sep 03, 2024 11:10 AM Reporting Lab: [address] [address] Performing Lab: [address] CREATININE 0.75 mg/dL 0.72-1.25 UREA NITROGEN 13 mg/dL 9-25 GLUCOSE 105 mg/dL H 74-100 SODIUM 128 mmol/L L 136-145 POTASSIUM 3.9 mmol/L 3.5-5.1 CHLORIDE 99 mmol/L 98-107 CO2 21 mmol/L L 22-29 CALCIUM 8.0 mg/dL L 8.4-10.2 ANION GAP 8 meq/L 3-19 eGFR (CKD-EPI) >90 Sep 04, 2024 06:02 AM [facility] GLUCOSE-HAND MONITOR CAPILLARY Specime n Type: CAPILLARY Comment: Test performed by: [id number] Meter #: [id number] Ordering Provider: FRANCK TURNER Report Released Date/Time: Sep 04, 2024 06:28 AM Reporting Lab: [address] [address] Performing Lab: [address] [address] GLUCOSE-HAND MONITOR 114 mg/dL H 71-99 Sep 03, 2024 05:19 PM [facility] GLUCOSE-HAND MONITOR CAPILLARY Specime n Type: CAPILLARY Comment: Test performed by: [id number] Meter #: [id number] Ordering Provider: FRANCK TURNER Report Released Date/Time: Sep 03, 2024 05:37 PM Reporting Lab: [address] [address] Performing Lab: [address] GLUCOSE-HAND MONITOR 124 mg/dL H 71-99 Sep 03, 2024 04:41 PM [facility] GLUCOSE-HAND MONITOR CAPILLARY Specime n Type: CAPILLARY Comment: Test performed by: [id number] Meter #: [id number] Ordering Provider: FRANCK TURNER Report Released Date/Time: Sep 03, 2024 06:09 PM Reporting Lab: [address] [address] Performing Lab: [address] [address] GLUCOSE-HAND MONITOR 112 mg/dL H 71-99 Sep 03, 2024 01:35 PM [facility] URINE LYTES URINE Specimen Type : URINE Comment: ~Altered mental status with no identifiable cause Ordering Provider: FRANCK TURNER Report Released Date/Time: Sep 02, 2024 04:44 PM Reporting Lab: [address] [address] Performing Lab: [address] [address] SODIUM 130 mmol/L POTASSIUM 47.6 mmol/L CHLORIDE 137 mmol/L Sep 03, 2024 01:35 PM [facility] CREATININE URINE Specimen Type: URINE Comment: ~Altered mental status with no identifiable cause Ordering Provider: FRANCK TURNER Report Released Date/Time: Sep 02, 2024 04:44 PM Reporting Lab: [address] [address] Performing Lab: [address] [address] CREATININE 150.9 mg/dL Sep 03, 2024 01:35 PM [facility] UREA NITROGEN URINE Specimen Type : URINE Comment: ~Altered mental status with no identifiable cause Ordering Provider: FRANCK TURNER Report Released Date/Time: Sep 02, 2024 04:44 PM Reporting Lab: [address] [address] Performing Lab: [address] [address] UREA NITROGEN 320 mg/dL Sep 03, 2024 01:35 PM [facility] OSMOLALITY URINE Specimen Type: URINE Comment: ~Altered mental status with no identifiable cause Ordering Provider: FRANCK TURNER Report Released Date/Time: Sep 02, 2024 04:44 PM Reporting Lab: [address] [address] Performing Lab: [address] [address] OSMOLALITY 522 mosm/kg 38-1400 Sep 03, 2024 01:35 PM [facility] URINALYSIS WITH REFLEX TO CULTURE URINE Specimen Type: URINE Comment: ~Altered mental status with no identifiable cause Ordering Provider: FRANCK TURNER Report Released Date/Time: Sep 02, 2024 04:44 PM Reporting Lab: [address] [address] Performing Lab: [address] [address] URINE COLOR Yellow Colorless-Yellow APPEARANCE CLOUDY H [...] H 0-28 Sep 03, 2024 11:58 AM [facility] GLUCOSE-HAND MONITOR CAPILLARY Specime n Type: CAPILLARY Comment: AAMIR RN notified Test performed by: [id number] Meter #: [id number] Ordering Provider: FRANCK TURNER Report Released Date/Time: Sep 03, 2024 12:15 PM Reporting Lab: [address] [address] Performing Lab: [address] [address] GLUCOSE-HAND MONITOR 135 mg/dL H 71-99 Sep 03, 2024 07:09 AM [facility] GLUCOSE-HAND MONITOR CAPILLARY Specime n Type: CAPILLARY Comment: Test performed by: [id number] Meter #: [id number] Ordering Provider: FRANCK TURNER Report Released Date/Time: Sep 03, 2024 07:26 AM Reporting Lab: [address] [address] Performing Lab: [address] [address] GLUCOSE-HAND MONITOR 120 mg/dL H 71-99 Sep 03, 2024 07:05 AM [facility] CBC/PLT BLOOD Specimen Type: BLOOD No comment entered. Ordering Provider: FRANCK TURNER Report Released Date/Time: Sep 02, 2024 04:29 PM Reporting Lab: [address] [address] Performing Lab: [address] [address] WBC 6.9 10*3/uL 5.0-10.0 RBC 3.48 10*6/uL L 4.6-6.2 HGB 9.5 g/dL L 14.0-18.0 HCT 29.1 L 42.0-52.0 MCV 83.6 fL 80.0-94.0 MCH 27.3 pg 27.0-31.0 MCHC 32.6 g/dL 32.0-36.0 PLT 258 10*3/uL 150-450 MPV 10.3 fL 9.0-13.1 RDW 14.8 11.0-16.0 NRBC 0.0 0.0-0.0 Sep 03, 2024 07:05 AM [facility] MAGNESIUM PLASMA Specimen Type: PLASM [...] 02, 2024 04:29 PM Reporting Lab: [address] [address] Performing Lab: [address] [address] MAGNESIUM 1.7 mg/dL 1.6-2.6 Sep 03, 2024 07:05 AM [facility] PANEL 1 PLASMA Specimen Type: [...] 02, 2024 04:29 PM Reporting Lab: [address] [address] Performing Lab: [address] [address] CREATININE 0.82 mg/dL 0.72-1.25 UREA NITROGEN 12 mg/dL 9-25 GLUCOSE 109 mg/dL H 74-100 SODIUM 129 mmol/L L 136-145 POTASSIUM 4.2 mmol/L 3.5-5.1 CHLORIDE 99 mmol/L 98-107 CO2 21 mmol/L L 22-29 CALCIUM 8.1 mg/dL L 8.4-10.2 ANION GAP 9 meq/L 3-19 eGFR (CKD-EPI) 90 Sep 03, 2024 07:05 AM [facility] GLYCOHEMOGLOBIN BLOOD Specimen Type: BLOOD Comment: Prediabetes: 5.7%-6.4% Diabetes: >= 6.5% [facility] guidelines for A1c interpretation: Glycemic [...] 8.73 and 9.27. Ref: https://ngsp.org/CAPdata.asp. The in-house [employer] D-100 analyzer has a historical CV <= 2%. Contact the laboratory for further performance characteristics of this assay. Ordering Provider: FRANCK TURNER Report Released Date/Time: Sep 02, 2024 04:29 PM Reporting Lab: [address] [address] Performing Lab: [address] [address] GLYCOHEMOGLOBIN 5.6 4.4-5.6 Sep 03, 2024 07:05 AM [facility] OSMOLALITY SERUM Specimen Type: SERUM No comment entered. Ordering Provider: FRANCK TURNER Report Released Date/Time: Sep 02, 2024 04:44 PM Reporting Lab: [address] [address] Performing Lab: [address] [address] OSMOLALITY 271 mosm/kg L 280-300 Sep 02, 2024 08:15 PM [facility] GLUCOSE-HAND MONITOR CAPILLARY Specime n Type: CAPILLARY Comment: AAMIR DEXTER notified Test performed by: [id number] Meter #: [id number] Ordering Provider: FRANCK TURNER Report Released Date/Time: Sep 02, 2024 08:57 PM Reporting Lab: [address] [address] Performing Lab: [address] [address] GLUCOSE-HAND MONITOR 126 mg/dL H 71-99 Sep 02, 2024 06:10 PM [facility] MRSA SURVL NARES DNA NARES [...] 02, 2024 05:12 PM Reporting Lab: [address] [address] Performing Lab: [address] [address] MRSA SURVL NARES DNA Negative Negative Sep 02, 2024 05:36 PM [facility] GLUCOSE-HAND MONITOR CAPILLARY Specime n Type: CAPILLARY Comment: Test performed by: [id number] Meter #: [id number] Ordering Provider: FRANCK TURNER Report Released Date/Time: Sep 02, 2024 05:53 PM Reporting Lab: [address] [address] Performing Lab: [address] [address] GLUCOSE-HAND MONITOR 127 mg/dL H 71-99 Aug 29, 2024 10:04 PM [facility] URINALYSIS WITH REFLEX TO CULTURE URINE Specimen Type: URINE Comment: ~For Test: URINALYSIS WITH REFLEX TO CULTURE ~REORDER Ordering Provider: FELISA COLE Report Released Date/Time: Aug 29, 2024 09:36 PM Reporting Lab: [address] [address] Performing Lab: [facility] [address] [facility] [place] [address] URINE COLOR Yellow Colorless-Yellow APPEARANCE Clear Clear [...] /[LPF] 0-28 Aug 29, 2024 08:32 PM [facility] HIGH SENSITIVITY TROPONIN I PLASMA [...] 29, 2024 07:55 PM Reporting Lab: [address] [address] Performing Lab: [address] [address] HIGH SENSITIVITY TROPONIN I 7 4-35 Aug 29, 2024 08:32 PM [facility] CBC/PLT BLOOD Specimen Type: BLOOD No comment entered. Ordering Provider: FELISA COLE Report Released Date/Time: Aug 29, 2024 07:55 PM Reporting Lab: [facility] [address] [facility] [address] Performing Lab: [address] [address] WBC 11.2 10*3/uL H 5.0-10.0 RBC 3.97 10*6/uL L 4.6-6.2 HGB 10.9 g/dL L 14.0-18.0 HCT 33.5 L 42.0-52.0 MCV 84.4 fL 80.0-94.0 MCH 27.5 pg 27.0-31.0 MCHC 32.5 g/dL 32.0-36.0 PLT 230 10*3/uL 150-450 MPV 10.2 fL 9.0-13.1 RDW 14.6 11.0-16.0 NRBC 0.0 0.0-0.0 Aug 29, 2024 08:32 PM [facility] PANEL 5 PLASMA Specimen Type: [...] 29, 2024 07:55 PM Reporting Lab: [address] [address] Performing Lab: [address] [address] CREATININE 0.85 mg/dL 0.72-1.25 UREA NITROGEN 15 [...] 18 /min 96 % 0 [place] [facility] Sep 08, 2024 09:03 PM 0 [place] [facility] Sep 08, 2024 03:46 PM 97.7 F 76 /min 148/70 mm[Hg] 16 /min 96 % 0 [place] [facility] Sep 08, 2024 11:42 AM 97.4 F 67 /min 125/69 mm[Hg] 92 % [place] [facility] Sep 08, 2024 09:30 AM [facility] Advance Directives: All historical and current Section Date Range: From patient's date of to the date document was created. This section includes ALL of a patient's completed or amended [place] Advance and Rescinded Directives. The entries below indicate that a directive exists for the patient, but an actual copy is not included with this document. The data comes from all [place] facilities. Date Advance Directives Provider Source Mar 08, 2024 ADVANCE DIRECTIVE DISCUSSION [facility] Radiology Reports: +/- 30 days [...] W & W/O: LUIS MANUEL PERDOMO FABIAN [id number] -1945 M Exm Date: SEP 06, 2024@13:40 Req Phys: FRANCK TURNER Pat Loc: 5-MED/TEL/09-06-2024@19:09 Img Loc: [facility] Service: [place] [address] (Case [id number] COMPLETE) MRI BRAIN W & W/O (MRI Detailed) CPT:25246 Contrast Media : Gadolinium Reason for Study: SEE CLINICAL HISTORY Pharmaceutical: GADOTERIDOL 279.3MG/ML 20ML INJ, 19ml Clinical History: MRI Screening (Required): IMPLANTED DEVICE DOCUMENTATION IMPLANTED DEVICE DOCUMENTATION NOT FOUND Does the [place] have any Cardiac Implants? None Does the [place] have any implanted stimulators? None Does the [place] have cochlear implants? No Does the have Cerebral aneurysm clip(s)? I don't know Does the have any shrapnel? I don't know If yes, where in your body? Please list other implants not listed above: MRI table has a weight limit of 551 lbs. Alma's Weight: *212 lb [96.16 kg] (09/04/2024 05:19) Is this patient claustrophobic?: No REASON FOR EXAM:MULTIPLE SCLEROSIS (indicate suspected or established) PERTINENT PATIENT HISTORY: MS c/f for flare Risk factors for GADOLINIUM NEPHROGENIC SYSTEMIC SCLEROSIS: Report Status: Verified Date Reported: SEP 06, 2024 Date Verified: SEP 06, 2024 Product Delivery Specialist E-Sig: Report: MRI brain without and [...] SIGNIFICANT ABNORMALITY, ATTN NEEDED Primary Interpreting Staff: ACRENIO LEYVA, Staff Radiologist Verified by costing analyst for ARCENIO LYEVA /[facility] Sep 06, 2024 01:40 PM MRI C SPINE W & W/ O CONTRAST(FURTHER SEQUENCES): LUIS MANUEL PERDOMO [id number] -1945 M Exm Date: SEP 06, 2024@13:40 Req Phys: FRANCK TURNER [facility] Loc: 5-MED/TEL/09-07-2024@06:42 Img Loc: [facility] Service: [place] [address] (Case [id number] COMPLETE) MRI C SPINE W & W/O CONTRAST(FURT(MRI Detailed) CPT:47354 Contrast Media : Gadolinium Reason for Study: SEE CLINICAL HISTORY Pharmaceutical: GADOTERIDOL 279.3MG/ML 20ML INJ, 19ml Clinical History: STATUS OF PLAIN FILMS:Not performed (Provide justification for MR W/O prior plain films below.) MRI for MS MRI Screening (Required): IMPLANTED DEVICE DOCUMENTATION IMPLANTED DEVICE DOCUMENTATION NOT FOUND Does the [place] have any Cardiac Implants? None Does the have any implanted stimulators? None Does the have cochlear implants? No Does the have Cerebral aneurysm clip(s)? I don't know Does the have any shrapnel? I don't know If yes, where in your body? Please list other implants not listed above: MRI table has a weight limit of 551 lbs. Alma's Weight: *212 lb [96.16 kg] (09/04/2024 05:19) Is this patient claustrophobic?: No REASON FOR EXAM: MULTIPLE SCLEROSIS (indicate suspected or established) PERTINENT PATIENT HISTORY: MS c/f flare Risk factors for GADOLINIUM NEPHROGENIC SYSTEMIC SCLEROSIS: Report Status: Verified Date Reported: SEP 07, 2024 Date Verified: SEP 07, 2024 Product Delivery Specialist E-Sig: Report: EXAMINATION: MRI OF THE [...] Interpreting Staff: HUANG TAI, Radiologist Verified by costing analyst for HUANG TAI /HUANG [facility] Sep 03, 2024 10:45 AM CHEST SINGLE(1) EW: LUIS MANUEL PERDOMO [phone] Exm Date: SEP 03, 2024@10:45 Req Phys: FRANCK TURNER Loc: 5-MED/TEL/09-03-2024@10:56 Img Loc: CDD RADIOLOGY Service: [place] [address] (Case [id number] COMPLETE)CHEST SINGLE(1) VIEW (RAD Detailed) CPT:47967 Proc Modifiers : PORTABLE EXAM Reason for Study: Eval volume status Clinical History: Report Status: Verified Date Reported: SEP 03, 2024 Date Verified: SEP 03, 2024 Product Delivery Specialist E-Sig: Report: EXAMINATION: SINGLE VIEW CHEST [...] Interpreting Staff: HUANG TAI, Radiologist Verified by costing analyst for HUANG TAI /HUANG [facility] Aug 29, 2024 08:[address] HEAD W/O CONT: LUIS MANUEL PERDOMO [id number] -[phone] M Exm Date: AUG 29, 2024@20:28 Req Phys: FELISA COLE Loc: ED/4P-12A (Req'g Loc) Img Loc: CT SCAN Service: [place] [address] (Case [id number] COMPLETE) CT HEAD W/O CONT (CT Detailed) CPT:84048 Reason for Study: SEE CLINICAL HISTORY Clinical History: REASON FOR SEND OUT: ATTENDING PHYSICIAN NAME: New transient neurological s/s - suspected TIA HISTORY/REASON FOR EXAM: confusion Report Status: Verified Date Reported: AUG 29, 2024 Date Verified: AUG 29, 2024 Product Delivery Specialist E-Sig: Report: HISTORY confusion COMPARISON No [...] Staff: ABDIRAHMAN CROW, Staff Physician Verified by costing analyst for ABDIRAHMAN CROW /ABDIRAHMAN [facility] Pathology Reports: +/- 30 [...] comes from all [place] treatment facilities. Date/Time Pathology Report Provider Source Sep 03, 2024 01:35 PM LR MICROBIOLOGY RE PORT: Reporting Lab: [facility] [CLIA# [id number]] [address] [place] [id number] Accession [UID]: [id number] [[id number]] Received: Sep 03, 2024@14:02 Collection sample: URINE, [...] Bacteriology Report Performed By: [facility] [[facility]# [id number]] [address] [place] [id number] MAGDY CALABRESE [facility] Sep 02, 2024 06:00 PM LR MICROBIOLOGY RE PORT: Reporting Lab: [facility] [IA# [id number]] [address] [place] [id number] Accession [UID]: [id number] [[id number]] Received: Sep 02, 2024@18:07 Collection sample: BLD CULTURE BOTTLES Collection date: Sep 02, 2024 18:00 Site/Specimen: BLOOD Provider: FRANCK TURNER Comment on specimen: L HAND Test(s) ordered: CULTURE, BLOOD................ completed: Sep 08, 2024 * BACTERIOLOGY FINAL REPORT => Sep 08, 2024 08:25 [facility] CODE: [id number] Bacteriology Remark(s): Blood culture status=NO GROWTH (unless notified otherwise) 09/03/2024 AEROBIC: NO GROWTH ANAEROBIC: NO GROWTH =--=--=--=--=--=--=--=--=--=-- =--=--=--=--=--=--=--=--=--=-- =--=--=--=--=--=-- Performing Laboratory: Bacteriology Report Performed By: [facility] [IA# [id number]] [address] [place] [id number] MAGDY [facility]ABRESE [facility] Aug 29, 2024 10:18 PM LR MICROBIOLOGY RE PORT: Reporting Lab: [facility] [IA# [id number]] [address] [place] [id number] Accession [UID]: [id number] [[id number]] Received: Aug 29, 2024@22:18 Collection sample: URINE, CLEAN CATCH Collection date: Aug 29, 2024 22:18 Site/Specimen: URINE Provider: FELISA COLE Test(s) ordered: CULTURE, URINE................ completed: Aug 31, 2024 09:51 * BACTERIOLOGY FINAL REPORT => Aug 31, 2024 09:51 TECH CODE: [id number] Bacteriology Remark(s): NO GROWTH 08/30/2024 <10,000 CFU/ML. 08/31/2024 =--=--=--=--=--=--=--=--=--=-- =--=--=--=--=--=--=--=--=--=-- =--=--=--=--=--=-- Performing Laboratory: Bacteriology Report Performed By: [facility] [CLIA# [id number]] [address] [place] [address] MAGDY CALABRESE [facility] Encounter Notes: All associated encounter notes This section contains the clinical notes associated to the Encounter. Date/Time Encounter Note(s) Provider Source Sep 10, 2024 07:42 AM ADDENDUM: LOCAL TITLE: Addendum STANDARD TITLE: ADDENDUM DATE OF NOTE: SEP 10, 2024@07:42:21 ENTRY DATE: SEP 10, 2024@07:42:22 AUTHOR: TYSON MEJIA COSIGNER: URGENCY: STATUS: COMPLETED Forwarding to [facility] provider and . /es/ TYSON MEJIA APPLICATION DEVELOPMENT PROJECT MANAGER RN Signed: 09/10/2024 07:43 Receipt Acknowledged By: 09/10/2024 07:48 /es/ Mary Gonzalez, tank shop supervisor RN for LYNN ALCOCER 09/15/2024 15:16 /es/ ESTEBAN BATEMAN RN [facility] RN Curriculum And Assessment Director Nurse Payroll Assistant 09/10/2024 07:48 /es/ YULISSA HENDERSON APRN ADVANCED PRACTICE REGISTERED NURSE, [facility] --- Original Document --- 09/09/24 PHARMACY DISCHARGE MEDICATION RECONCILIATION: DISCHARGE MEDICATION RECONCILATION Have you used tobacco products (smoked/chewed) within the past 30 days? No, patient has not used tobacco products within the past 30 days ADVERSE DRUG REACTIONS/ALLERGIES: Patient has answered NKA CURRENT INPATIENT REGIMEN: Active Inpatient Medications (including Supplies): Start Date Active Inpatient Medications Status Stop Date 1) ACETAMINOPHEN TAB ACTIVE Start: 09/05/24 Give: 975MG PO TID Stop : 12/10/24 Indication: FOR PAIN/FEVER 2) ASPIRIN TAB,EC ACTIVE Start: 09/02/24 Give: 81MG PO DAILY Stop : 12/10/24 Indication: FOR HEART 3) ATORVASTATIN TAB ACTIVE Start: 09/02/24 Give: 20MG PO QHS Stop : 12/10/24 Indication: FOR CHOLESTEROL 4) BISOPROLOL TAB ACTIVE Start: 09/02/24 Give: 5MG PO DAILY Stop : 12/10/24 Indication: FOR BLOOD PRESSURE/HEART 5) DEXTROSE 15GM/32ML PKT GEL,ORAL ACTIVE Start: 09/02/24 Give: 1 PACKET (15GM) PO Q15MIN PRN Stop : 12/10/24 Give one tube (15gm) for BG 51-70mg/dl. Perform fingerstick 15 minutes after treatment; notify treating provider. Indication: FOR LOW BLOOD SUGAR 6) DEXTROSE 15GM/32ML PKT GEL,ORAL ACTIVE Start: 09/02/24 [...] LOW BLOOD SUGAR 8) DEXTROSE 50% INJ,SOLN ACTIVE Start: 09/02/24 Give: 50ML (1 AMP/SYRINGE) IV Q15MIN PRN Stop : 12/10/24 Give 50% dextrose 50 mL IV (over 3 min) STAT for BG of 50 mg/dL and below or unresponsive or NPO. Perform fingerstick 15 minutes after treatment; notify treating provider. Indication: FOR LOW BLOOD SUGAR 9) DICLOFENAC NA 1% GEL,TOP ACTIVE Start: 09/02/24 Give: 2 GRAM STRIP TOP Q6H PRN Stop : 12/10/24 Indication: FOR PAIN 10) ENOXAPARIN (LMW HEPARIN) INJ ACTIVE Start: 09/02/24 Give: 40MG/0.4ML SQ Q24H Stop : 12/10/24 Instructions too long. See order details for full text. Indication: TO THIN BLOOD 11) FAMOTIDINE (famOTidine) TAB ACTIVE Start: 09/02/24 Give: 20MG PO BID PRN Stop : 12/10/24 Indication: FOR STOMACH 12) GABAPENTIN CAP,ORAL ACTIVE Start: 09/04/24 Give: 200MG PO TID Stop : 12/10/24 Indication: FOR NERVE PAIN 13) GLUCAGON INJ ACTIVE Start: 09/02/24 Give: 1MG/1ML SC Q15MIN PRN Stop : 12/10/24 Instructions too long. See order details for full text. Indication: FOR LOW BLOOD SUGAR 14) INSULIN ASPART (NOVOLOG) INJ ACTIVE Start: 09/02/24 Give: CORRECTION DOSE:SEE COMMENTS SQ AT Stop : 12/10/24 MEAL END Give after pt fed WITH scheduled meal/prandial insulin(if ordered) If premeal FSBS 131-180=1 unit; 181-230=2 unit; 231-280=3 unit; 281-330=4 unit; >330=5 unit. DO NOT HOLD for NPO. Indication: FOR BLOOD SUGAR 15) LISINOPRIL TAB ACTIVE Start: 09/03/24 Give: 5MG PO DAILY Stop : 12/10/24 Indication: FOR HIGH BLOOD PRESSURE 16) MELATONIN 3MG CAP/TAB ACTIVE Start: 09/04/24 Give: 6MG PO QHS PRN Stop : 12/10/24 Indication: FOR SLEEP 17) METHENAMINE HIPPURATE TAB ACTIVE Start: 09/03/24 Give: 1GM PO BID Stop : 09/17/24 DURATION: Continuation of chronic home therapy Indication: TO PREVENT URINARY TRACT INFECTION 18) PRESERVISION AREDS 2 (NON-SMOKER) CAP/ ACTIVE Start: 09/03/24 Give: 1 SOFTGEL PO BID PC Stop : 12/10/24 Indication: FOR EYE HEALTH 19) TAMSULOSIN (FLOMAX) CAP,ORAL ACTIVE Start: 09/03/24 Give: 0.4MG PO QPM Stop : 12/10/24 Indication: FOR PROSTATE CURRENT OUTPATIENT MEDICATIONS: Active medications per conversation with nurse from [facility] OF [facility], unable to fax med list. [phone]. -Famotidine 20mg tab po bid -Bisoprolol fumarate [...] -Florastor 2 tab/cap po bid through 09/16/24 - RECONCILIATION REVIEW: - Discharge medication list was compared to the patient's inpatient list of medications, medication list prior to admission, and active outpatient profile. 1. Inpatient Medications to be discontinued: -hypoglycemia protocol -enoxaparin -insulin aspart correction dose 2. New Outpatient Medications: -diclofenac top gel -melatonin 3. Outpatient Medication Changes/Dose Adjustments: -acetaminophen 650mg po q4h prn CHANGED to 975mg po tid PRN -albuterol/ipratropium nebs: 3ml via nebulizer 16h prn 4. Outpatient Medications to be discontinued: -levofloxacin 5. Outpatient Medications held on admission to resume upon discharge: -vitamin E -PEG oral powder -metformin -cholecalciferol -sodium chloride tab -nystatin top powder -albuterol/ipratropium nebs -florastor 6. Discrepancies between inpatient/outpatient profile and discharge regimen: - Can patient resume home meds listed in #5 at discharge? PER Dr. Nguyen he can resume all home meds EXCEPT will stop levofloxacin at discharge and CHANGED albuterol/ipratropium nebs to PRN at discharge. - Will the patient continue any of the following new medications started during hospitalization at discharge? -hypoglycemia protocol -diclofenac top gel -enoxaparin -insulin aspart correction dose -melatonin Per Dr. Nguyen he will continue new RX for diclofenac gel and melatonin at discharge to [facility]. - The following home meds had changes during hospitalization, will patient resume home regimen at discharge? -acetaminophen 650mg po q4h prn CHANGED to 975mg po tid -famotidine 20m po bid CHANGED to 20mg po bid prn per Dr. Nguyen he can resume his home famotidine dose and continue Acetaminophen as 975mg po tid prn DISCHARGE TO INTERMEDIATE: At the time of discharge medications WILL NOT be supplied by [facility]. Group Home will supply ALL medications for the patient. Medications on the outpatient profile will be discontinued on discharge by pharmacy. Active medications on discharge to [facility] -Famotidine 20mg tab po bid [...] PRN -Albuterol/Ipratropium nebs: 3ml via nebulizer q6h through 09/08/24 -Florastor 2 tab/cap po bid through 09/16/24 -Diclofenac NA 1% top gel: Apply 2 gram strip to affected area PRN pain -Melatonin 3mg tab: 2 tabs po qhs PRN for sleep Time spent reviewing chart: 30 Minutes PBM PharmD Pharmacotherapy Rem V12: Care coordination Medication reconciliation (changes to active VA and non-VA medication lists to reconcile differences) Changes to medication lists made Update dose, frequency, duration and/or dosage form of medication Add or renew medication /es/ GENIA N TANIA CLINICAL MED REC PHARMACIST Signed: 09/09/2024 09:33 TYSON MEJIA-MALKA [facility] Sep 09, 2024 07:00 AM PHARMACY MEDICATIO N MGT DISCHARGE NOTE: LOCAL TITLE: PHARMACY DISCHARGE MEDICATION RECONCILIATION STANDARD TITLE: PHARMACY MEDICATION MGT DISCHARGE NOTE DATE OF NOTE: SEP 09, 2024@07:00 ENTRY DATE: SEP 08, 2024@10:36:11 AUTHOR: GENIA MARIN EXP COSIGNER: URGENCY: STATUS: COMPLETED PHARMACY DISCHARGE MEDICATION RECONCILIATION Has ADDENDA DISCHARGE MEDICATION RECONCILATION Have you used tobacco products (smoked/chewed) within the past 30 days? No, patient has not used tobacco products within the past 30 days ADVERSE DRUG REACTIONS/ALLERGIES: Patient has answered NKA CURRENT INPATIENT REGIMEN: Active Inpatient Medications (including Supplies): Start Date Active Inpatient Medications Status Stop Date 1) ACETAMINOPHEN TAB ACTIVE Start: 09/05/24 Give: 975MG PO TID Stop : 12/10/24 Indication: FOR PAIN/FEVER 2) ASPIRIN TAB,EC ACTIVE Start: 09/02/24 Give: 81MG PO DAILY Stop : 12/10/24 Indication: FOR HEART 3) ATORVASTATIN TAB ACTIVE Start: 09/02/24 Give: 20MG PO QHS Stop : 12/10/24 Indication: FOR CHOLESTEROL 4) BISOPROLOL TAB ACTIVE Start: 09/02/24 Give: 5MG PO DAILY Stop : 12/10/24 Indication: FOR BLOOD PRESSURE/HEART 5) DEXTROSE 15GM/32ML PKT GEL,ORAL ACTIVE Start: 09/02/24 Give: 1 PACKET (15GM) PO Q15MIN PRN Stop : 12/10/24 Give one tube (15gm) for BG 51-70mg/dl. Perform fingerstick 15 minutes after treatment; notify treating provider. Indication: FOR LOW BLOOD SUGAR 6) DEXTROSE 15GM/32ML PKT GEL,ORAL ACTIVE Start: 09/02/24 [...] LOW BLOOD SUGAR 8) DEXTROSE 50% INJ,SOLN ACTIVE Start: 09/02/24 Give: 50ML (1 AMP/SYRINGE) IV Q15MIN PRN Stop : 12/10/24 Give 50% dextrose 50 mL IV (over 3 min) STAT for BG of 50 mg/dL and below or unresponsive or NPO. Perform fingerstick 15 minutes after treatment; notify treating provider. Indication: FOR LOW BLOOD SUGAR 9) DICLOFENAC NA 1% GEL,TOP ACTIVE Start: 09/02/24 Give: 2 GRAM STRIP TOP Q6H PRN Stop : 12/10/24 Indication: FOR PAIN 10) ENOXAPARIN (LMW HEPARIN) INJ ACTIVE Start: 09/02/24 Give: 40MG/0.4ML SQ Q24H Stop : 12/10/24 Instructions too long. See order details for full text. Indication: TO THIN BLOOD 11) FAMOTIDINE (famOTidine) TAB ACTIVE Start: 09/02/24 Give: 20MG PO BID PRN Stop : 12/10/24 Indication: FOR STOMACH 12) GABAPENTIN CAP,ORAL ACTIVE Start: 09/04/24 Give: 200MG PO TID Stop : 12/10/24 Indication: FOR NERVE PAIN 13) GLUCAGON INJ ACTIVE Start: 09/02/24 Give: 1MG/1ML SC Q15MIN PRN Stop : 12/10/24 Instructions too long. See order details for full text. Indication: FOR LOW BLOOD SUGAR 14) INSULIN ASPART (NOVOLOG) INJ ACTIVE Start: 09/02/24 Give: CORRECTION DOSE:SEE COMMENTS SQ AT Stop : 12/10/24 MEAL END Give after pt fed WITH scheduled meal/prandial insulin(if ordered) If premeal FSBS 131-180=1 unit; 181-230=2 unit; 231-280=3 unit; 281-330=4 unit; >330=5 unit. DO NOT HOLD for NPO. Indication: FOR BLOOD SUGAR 15) LISINOPRIL TAB ACTIVE Start: 09/03/24 Give: 5MG PO DAILY Stop : 12/10/24 Indication: FOR HIGH BLOOD PRESSURE 16) MELATONIN 3MG CAP/TAB ACTIVE Start: 09/04/24 Give: 6MG PO QHS PRN Stop : 12/10/24 Indication: FOR SLEEP 17) METHENAMINE HIPPURATE TAB ACTIVE Start: 09/03/24 Give: 1GM PO BID Stop : 09/17/24 DURATION: Continuation of chronic home therapy Indication: TO PREVENT URINARY TRACT INFECTION 18) PRESERVISION AREDS 2 (NON-SMOKER) CAP/ ACTIVE Start: 09/03/24 Give: 1 SOFTGEL PO BID PC Stop : 12/10/24 Indication: FOR EYE HEALTH 19) TAMSULOSIN (FLOMAX) CAP,ORAL ACTIVE Start: 09/03/24 Give: 0.4MG PO QPM Stop : 12/10/24 Indication: FOR PROSTATE CURRENT OUTPATIENT MEDICATIONS: Active medications per conversation with nurse from [facility] OF [facility], unable to fax med list. [phone]. -Famotidine 20mg tab po bid -Bisoprolol fumarate [...] -Florastor 2 tab/cap po bid through 09/16/24 - RECONCILIATION REVIEW: - Discharge medication list was compared to the patient's inpatient list of medications, medication list prior to admission, and active outpatient profile. 1. Inpatient Medications to be discontinued: -hypoglycemia protocol -enoxaparin -insulin aspart correction dose 2. New Outpatient Medications: -diclofenac top gel -melatonin 3. Outpatient Medication Changes/Dose Adjustments: -acetaminophen 650mg po q4h prn CHANGED to 975mg po tid PRN -albuterol/ipratropium nebs: 3ml via nebulizer 16h prn 4. Outpatient Medications to be discontinued: -levofloxacin 5. Outpatient Medications held on admission to resume upon discharge: -vitamin E -PEG oral powder -metformin -cholecalciferol -sodium chloride tab -nystatin top powder -albuterol/ipratropium nebs -florastor 6. Discrepancies between inpatient/outpatient profile and discharge regimen: - Can patient resume home meds listed in #5 at discharge? PER Dr. Nguyen he can resume all home meds EXCEPT will stop levofloxacin at discharge and CHANGED albuterol/ipratropium nebs to PRN at discharge. - Will the patient continue any of the following new medications started during hospitalization at discharge? -hypoglycemia protocol -diclofenac top gel -enoxaparin -insulin aspart correction dose -melatonin Per Dr. Nguyen he will continue new RX for diclofenac gel and melatonin at discharge to [facility]. - The following home meds had changes during hospitalization, will patient resume home regimen at discharge? -acetaminophen 650mg po q4h prn CHANGED to 975mg po tid -famotidine 20m po bid CHANGED to 20mg po bid prn per Dr. Nguyen he can resume his home famotidine dose and continue Acetaminophen as 975mg po tid prn DISCHARGE TO INTERMEDIATE: At the time of discharge medications WILL NOT be supplied by [facility]. Group Home will supply ALL medications for the patient. Medications on the outpatient profile will be discontinued on discharge by pharmacy. Active medications on discharge to [facility] -Famotidine 20mg tab po bid [...] PRN -Albuterol/Ipratropium nebs: 3ml via nebulizer q6h through 09/08/24 -Florastor 2 tab/cap po bid through 09/16/24 -Diclofenac NA 1% top gel: Apply 2 gram strip to affected area PRN pain -Melatonin 3mg tab: 2 tabs po qhs PRN for sleep Time spent reviewing chart: 30 Minutes PBM PharmD Pharmacotherapy Rem V12: Care coordination Medication reconciliation (changes to active VA and non-VA medication lists to reconcile differences) Changes to medication lists made Update dose, frequency, duration and/or dosage form of medication Add or renew medication /rosette/ GENIA MARIN CLINICAL MED REC PHARMACIST Signed: 09/09/2024 09:33 09/10/2024 ADDENDUM STATUS: COMPLETED Forwarding to [facility] provider and CM. /rosette/ TYSON MEJIA APPLICATION DEVELOPMENT PROJECT MANAGER RN Signed: 09/10/2024 07:43 Receipt Acknowledged By: * AWAITING SIGNATURE * LYNN ALCOCER * AWAITING SIGNATURE * ESTEBAN BATEMAN * AWAITING SIGNATURE * YULISSA HENDERSON DORINDA N [place]
--- OUTSIDE RECORDS SUMMARY | 2024-09-08 06:39 | XMS_ITS ---
[place] DAILY HOSPITALIZATION DATA [facility] Encounter Summary Created on: September 22, 2024 LUIS MANUEL PERDOMO : 1945 Sex: Male Author Name [facility] Address [address] [place] [address] Care Team Providers Care Litigation Docket Manager Name Role Phone YULISSA HENDERSON Primary [...] PLAN F Mar 24, 2014 PLAN F [id number] [phone] LUIS MANUEL PERDOMO PATIENT [facility] [place] [facility] PREFERRED PROVIDER ORGANIZAT ION (PPO) [facility] SLE Sep 21, 2012 [id number] LUIS MANUEL PERDOMO PATIENT [employer] ([id number]) PRESCRIPT ION WL3A Sep 21, 2012 [id number] LUIS MANUEL PERDOMO PATIENT MEDICARE (WNR) MEDICARE (M) PART B Sep 21, 2012 PART B [id number] [phone] NOEMI PERDOMO PATIENT MEDICARE (WNR) MEDICARE (M) PART A Jan 22, 2011 PART A [id number] LEANNE, NOEMI PATIENT MEDICARE PART D (WNR) MEDICARE (M) PART D Mar 24, 2014 PART D [id number] LUIS MANUEL PERDOMO PATIENT Selected Encounter This section includes the information on record at [place] for the Encounter. Date/Time Encounter Type Encounter Description Reason Pro vider Source Sep 08, 2024 10:39 AM Inpatient Visit DAILY HOSPITALIZATION DATA I[place] Encounter Template Text not used by [place] Plan of Treatment: Future Appointments (+ 6 months) and Future Tests (+/- 45 days) The Plan of Treatment section includes [facility] care activities [facility] the [facility] [place] [facility] This section includes future appointments [...] PM AMBULATORY - SURGERY [facility] Active, Pending, and Scheduled Orders This section includes a listing of several types of active, pending, and scheduled orders, including clinic medications orders, diagnostic test orders, procedure orders and consult orders; where the start date of the order is 45 days before the date of the Encounter or 45 days after the date of theEncounter. The data comes from all [facility] facilities. Test Date/Time Test Type Test Details Facility Name Sep 13, 2024 01:33 PM Consult Order [facility] Cons Table Worker Packager's Choice [facility] Lab Results: +/- 30 days [...] Type Comment Sep 09, 2024 12:16 PM [facility] GLUCOSE-HAND MONITOR CAPILLARY Specimen Type: CAPILLARY Comment: Test performed by: [id number] Meter #: [id number] Ordering Provider: FRANCK TURNER Report Released Date/Time: Sep 09, 2024 12:33 PM Reporting Lab: [address] [address] Performing Lab: [address] [address] GLUCOSE-HAND MONITOR 116 mg/dL H Sep 09, 2024 06:07 AM [facility] GLUCOSE-HAND MONITOR CAPILLARY Specime n Type: CAPILLARY Comment: Test performed by: [id number] Meter #: [id number] Ordering Provider: FRANCK TURNER Report Released Date/Time: Sep 09, 2024 08:17 AM Reporting Lab: [address] [address] Performing Lab: [address] [address] GLUCOSE-HAND MONITOR 112 mg/dL H Sep 08, 2024 09:13 PM [facility] GLUCOSE-HAND MONITOR CAPILLARY Specime n Type: CAPILLARY Comment: Test performed by: [id number] Meter #: [id number] Ordering Provider: FRANCK TURNER Report Released Date/Time: Sep 08, 2024 09:31 PM Reporting Lab: [address] [address] Performing Lab: [address] [address] GLUCOSE-HAND MONITOR 107 mg/dL H Sep 08, 2024 03:49 PM [facility] GLUCOSE-HAND MONITOR CAPILLARY Specime n Type: CAPILLARY Comment: AAMIR RN notified Test performed by: [id number] Meter #: [id number] Ordering Provider: FRANCK TURNER Report Released Date/Time: Sep 08, 2024 04:33 PM Reporting Lab: [address] [address] Performing Lab: [address] [address] GLUCOSE-HAND MONITOR 162 mg/dL H Sep 08, 2024 11:43 AM [facility] GLUCOSE-HAND MONITOR CAPILLARY Specime n Type: CAPILLARY Comment: AAMIR RN notified Test performed by: [id number] Meter #: [id number] Ordering Provider: FRANCK TURNER Report Released Date/Time: Sep 08, 2024 12:03 PM Reporting Lab: [address] [address] Performing Lab: [address] [address] GLUCOSE-HAND MONITOR 133 mg/dL H Sep 08, 2024 06:13 AM [facility] GLUCOSE-HAND MONITOR CAPILLARY Specime n Type: CAPILLARY Comment: Test performed by: [id number] Meter #: [id number] Ordering Provider: FRANCK TURNER Report Released Date/Time: Sep 08, 2024 06:46 AM Reporting Lab: [address] [address] Performing Lab: [address] [address] GLUCOSE-HAND MONITOR 104 mg/dL H Sep 07, 2024 07:59 PM [facility] GLUCOSE-HAND MONITOR CAPILLARY Specime n Type: CAPILLARY Comment: Test performed by: [id number] Meter #: [id number] Ordering Provider: FRANCK TURNER Report Released Date/Time: Sep 07, 2024 09:05 PM Reporting Lab: [address] [address] Performing Lab: [address] [address] GLUCOSE-HAND MONITOR 107 mg/dL H Sep 07, 2024 04:39 PM [facility] GLUCOSE-HAND MONITOR CAPILLARY Specime n Type: CAPILLARY Comment: Test performed by: [id number] Meter #: [id number] Ordering Provider: FRANCK TURENR Report Released Date/Time: Sep 07, 2024 05:09 PM Reporting Lab: [address] [address] Performing Lab: [address] [address] GLUCOSE-HAND MONITOR 105 mg/dL H Sep 07, 2024 11:41 AM [facility] GLUCOSE-HAND MONITOR CAPILLARY Specime n Type: CAPILLARY Comment: Test performed by: [id number] Meter #: [id number] Ordering Provider: FRANCK TURNER Report Released Date/Time: Sep 07, 2024 12:41 PM Reporting Lab: [address] [address] Performing Lab: [address] [address] GLUCOSE-HAND MONITOR 144 mg/dL H Sep 07, 2024 05:56 AM [facility] GLUCOSE-HAND MONITOR CAPILLARY Specime n Type: CAPILLARY Comment: Test performed by: [id number] Meter #: [id number] Ordering Provider: FRANCK TURNER Report Released Date/Time: Sep 07, 2024 06:31 AM Reporting Lab: [address] [address] Performing Lab: [address] [address] GLUCOSE-HAND MONITOR 96 mg/dL Sep 06, 2024 08:10 PM [facility] GLUCOSE-HAND MONITOR CAPILLARY Specime n Type: CAPILLARY Comment: Test performed by: [id number] Meter #: [id number] Ordering Provider: FRANCK TURNER Report Released Date/Time: Sep 06, 2024 08:52 PM Reporting Lab: [address] [address] Performing Lab: [address] [address] GLUCOSE-HAND MONITOR 124 mg/dL H Sep 06, 2024 04:27 PM [facility] GLUCOSE-HAND MONITOR CAPILLARY Specime n Type: CAPILLARY Comment: Test performed by: [id number] Meter #: [id number] Ordering Provider: FRANCK TURNER Report Released Date/Time: Sep 06, 2024 05:15 PM Reporting Lab: [address] [address] Performing Lab: [address] [address] GLUCOSE-HAND MONITOR 107 mg/dL H Sep 06, 2024 12:12 PM [facility] GLUCOSE-HAND MONITOR CAPILLARY Specime n Type: CAPILLARY Comment: Test performed by: [id number] Meter #: [id number] Ordering Provider: FRANCK TURNER Report Released Date/Time: Sep 06, 2024 12:29 PM Reporting Lab: [address] [address] Performing Lab: [address] [address] GLUCOSE-HAND MONITOR 181 mg/dL H -Sep 06, 2024 06:13 AM [facility] GLUCOSE-HAND MONITOR CAPILLARY Specime n Type: CAPILLARY Comment: Test performed by: [id number] Meter #: [id number] Ordering Provider: FRANCK TURNER Report Released Date/Time: Sep 06, 2024 06:36 AM Reporting Lab: [address] [address] Performing Lab: [address] [address] GLUCOSE-HAND MONITOR 102 mg/dL H Sep 05, 2024 08:47 PM [facility] GLUCOSE-HAND MONITOR CAPILLARY Specime n Type: CAPILLARY Comment: Test performed by: [id number] Meter #: [id number] Ordering Provider: FRANCK TURNER Report Released Date/Time: Sep 06, 2024 02:13 AM Reporting Lab: [address] [address] Performing Lab: [address] [address] GLUCOSE-HAND MONITOR 103 mg/dL H Sep 05, 2024 04:40 PM [facility] GLUCOSE-HAND MONITOR CAPILLARY Specime n Type: CAPILLARY Comment: AAMIR RN notified Test performed by: [id number] Meter #: [id number] Ordering Provider: FRANCK TURNER Report Released Date/Time: Sep 05, 2024 05:11 PM Reporting Lab: [address] [address] Performing Lab: [address] [address] GLUCOSE-HAND MONITOR 113 mg/dL H Sep 05, 2024 12:06 PM [facility] GLUCOSE-HAND MONITOR CAPILLARY Specime n Type: CAPILLARY Comment: Test performed by: [id number] Meter #: [id number] Ordering Provider: FRANCK TURNER Report Released Date/Time: Sep 05, 2024 12:23 PM Reporting Lab: [address] [address] Performing Lab: [address] [address] GLUCOSE-HAND MONITOR 115 mg/dL H Sep 05, 2024 06:26 AM [facility] GLUCOSE-HAND MONITOR CAPILLARY Specime n Type: CAPILLARY Comment: AAMIR Correction Dose Test performed by: [id number] Meter #: [id number] Ordering Provider: FRANCK TURNER Report Released Date/Time: Sep 05, 2024 06:43 AM Reporting Lab: [address] [address] Performing Lab: [address] [address] GLUCOSE-HAND MONITOR 111 mg/dL H Sep 04, 2024 08:59 PM [facility] GLUCOSE-HAND MONITOR CAPILLARY Specime n Type: CAPILLARY Comment: AAMIR RN notified Test performed by: [id number] Meter #: [id number] Ordering Provider: FRANCK TURNER Report Released Date/Time: Sep 04, 2024 09:36 PM Reporting Lab: [address] [address] Performing Lab: [address] [address] GLUCOSE-HAND MONITOR 123 mg/dL H Sep 04, 2024 04:41 PM [facility] GLUCOSE-HAND MONITOR CAPILLARY Specime n Type: CAPILLARY Comment: AAMIR RN notified Test performed by: [id number] Meter #: [id number] Ordering Provider: FRANCK TURNER Report Released Date/Time: Sep 04, 2024 05:03 PM Reporting Lab: [address] [address] Performing Lab: [address] [address] GLUCOSE-HAND MONITOR 118 mg/dL H Sep 04, 2024 12:36 PM [facility] GLUCOSE-HAND MONITOR CAPILLARY Specime n Type: CAPILLARY Comment: AAMIR RN notified Test performed by: [id number] Meter #: [id number] Ordering Provider: FRANCK TURNER Report Released Date/Time: Sep 04, 2024 12:53 PM Reporting Lab: [address] [address] Performing Lab: [place] [address] GLUCOSE-HAND MONITOR 129 mg/dL H 71-99 Sep 04, 2024 12:03 PM [facility] RESPIRATORY VIRUS PANEL (BIOFIRE) NASOPHARYN X Specimen Type: NASOPHARYNX Comment: ~For Test: RESPIRATORY VIRUS PANEL (BIOFIRE) ~ORDER READ BACK TO: FRANCK TURNER 09/04/24@11:30 Ordering Provider: FRANCK TURNER Report Released Date/Time: Sep 04, 2024 11:33 AM Reporting Lab: [place] [address] Performing Lab: [place] [address] ADENOVIRUS (BIOFIRE) Not Detected -Not D etected [...] -Not Detected Sep 04, 2024 06:55 AM [facility] MAGNESIUM PLASMA Specimen Type: PLASM [...] 11:10 AM Reporting Lab: [place] [facility] [address] [facility] [address] Performing Lab: [place] [address] [facility] [address] MAGNESIUM 1.8 mg/dL 1.6-2.6 Sep 04, 2024 06:55 AM [facility] PANEL 1 PLASMA Specimen Type: [...] Sep 03, 2024 11:10 AM Reporting Lab: [address] [address] Performing Lab: [address] CREATININE 0.75 mg/dL 0.72-1.25 UREA NITROGEN 13 mg/dL 9-25 GLUCOSE 105 mg/dL H 74-100 SODIUM 128 mmol/L L 136-145 POTASSIUM 3.9 mmol/L 3.5-5.1 CHLORIDE 99 mmol/L 98-107 CO2 21 mmol/L L 22-29 CALCIUM 8.0 mg/dL L 8.4-10.2 ANION GAP 8 meq/L 3-19 eGFR (CKD-EPI) >90 Sep 04, 2024 06:02 AM [facility] GLUCOSE-HAND MONITOR CAPILLARY Specime n Type: CAPILLARY Comment: Test performed by: [id number] Meter #: [id number] Ordering Provider: FRANCK TURNER Report Released Date/Time: Sep 04, 2024 06:28 AM Reporting Lab: [address] Performing Lab: [address] GLUCOSE-HAND MONITOR 114 mg/dL H 71-99 Sep 03, 2024 05:19 PM [facility] GLUCOSE-HAND MONITOR CAPILLARY Specime n Type: CAPILLARY Comment: Test performed by: [id number] Meter #: [id number] Ordering Provider: FRANCK TURNER Report Released Date/Time: Sep 03, 2024 05:37 PM Reporting Lab: [address] Performing Lab: [address] [address] GLUCOSE-HAND MONITOR 124 mg/dL H 71-99 Sep 03, 2024 04:41 PM [facility] GLUCOSE-HAND MONITOR CAPILLARY Specime n Type: CAPILLARY Comment: Test performed by: [id number] Meter #: [id number] Ordering Provider: FRANCK TURNER Report Released Date/Time: Sep 03, 2024 06:09 PM Reporting Lab: [address] [address] Performing Lab: [address] [address] GLUCOSE-HAND MONITOR 112 mg/dL H 71-99 Sep 03, 2024 01:35 PM [facility] CREATININE URINE Specimen Type: URINE Comment: ~Altered mental status with no identifiable cause Ordering Provider: FRANCK TURNER Report Released Date/Time: Sep 02, 2024 04:44 PM Reporting Lab: [facility] [address] [place] [address] Performing Lab: [address] [address] CREATININE 150.9 mg/dL Sep 03, 2024 01:35 PM [facility] URINE LYTES URINE Specimen Type : URINE Comment: ~Altered mental status with no identifiable cause Ordering Provider: FRANCK TURNER Report Released Date/Time: Sep 02, 2024 04:44 PM Reporting Lab: [address] [address] Performing Lab: [address] [address] SODIUM 130 mmol/L POTASSIUM 47.6 mmol/L CHLORIDE 137 mmol/L Sep 03, 2024 01:35 PM [facility] UREA NITROGEN URINE Specimen Type : URINE Comment: ~Altered mental status with no identifiable cause Ordering Provider: FRANCK TURNER Report Released Date/Time: Sep 02, 2024 04:44 PM Reporting Lab: [address] [address] Performing Lab: [address] [address] UREA NITROGEN 320 mg/dL Sep 03, 2024 01:35 PM [facility] OSMOLALITY URINE Specimen Type: URINE Comment: ~Altered mental status with no identifiable cause Ordering Provider: FRANCK TURNER Report Released Date/Time: Sep 02, 2024 04:44 PM Reporting Lab: [address] [address] Performing Lab: [address] [address] OSMOLALITY 522 mosm/kg 38-1400 Sep 03, 2024 01:35 PM [facility] URINALYSIS WITH REFLEX TO CULTURE URINE Specimen Type: URINE Comment: ~Altered mental status with no identifiable cause Ordering Provider: FRANCK TURNER Report Released Date/Time: Sep 02, 2024 04:44 PM Reporting Lab: [address] [address] Performing Lab: [address] [address] URINE COLOR Yellow Colorless-Yellow APPEARANCE CLOUDY H [...] H 0-28 Sep 03, 2024 11:58 AM [facility] GLUCOSE-HAND MONITOR CAPILLARY Specime n Type: CAPILLARY Comment: AAMIR RN notified Test performed by: [id number] Meter #: [id number] Ordering Provider: FRANCK TURNER Report Released Date/Time: Sep 03, 2024 12:15 PM Reporting Lab: [address] [address] Performing Lab: [address] [address] GLUCOSE-HAND MONITOR 135 mg/dL H Sep 03, 2024 07:09 AM [facility] GLUCOSE-HAND MONITOR CAPILLARY Specime n Type: CAPILLARY Comment: Test performed by: [id number] Meter #: [id number] Ordering Provider: FRANCK TURNER Report Released Date/Time: Sep 03, 2024 07:26 AM Reporting Lab: [address] [address] Performing Lab: [address] [address] GLUCOSE-HAND MONITOR 120 mg/dL H -Sep 03, 2024 07:05 AM [facility] CBC/PLT BLOOD Specimen Type: BLOOD No comment entered. Ordering Provider: FRANCK TURNER Report Released Date/Time: Sep 02, 2024 04:29 PM Reporting Lab: [address] [address] Performing Lab: [address] [address] WBC 6.9 10*3/uL 5.0-10.0 RBC 3.48 10*6/uL L 4.6-6.2 HGB 9.5 g/dL L 14.0-18.0 HCT 29.1 L 42.0-52.0 MCV 83.6 fL 80.0-94.0 MCH 27.3 pg 27.0-31.0 MCHC 32.6 g/dL 32.0-36.0 PLT 258 10*3/uL 150-450 MPV 10.3 fL 9.0-13.1 RDW 14.8 11.0-16.0 NRBC 0.0 0.0-0.0 Sep 03, 2024 07:05 AM [facility] MAGNESIUM PLASMA Specimen Type: PLASM [...] 02, 2024 04:29 PM Reporting Lab: [address] [address] Performing Lab: [address] [address] MAGNESIUM 1.7 mg/dL 1.6-2.6 Sep 03, 2024 07:05 AM [facility] PANEL 1 PLASMA Specimen Type: [...] 02, 2024 04:29 PM Reporting Lab: [address] [address] Performing Lab: [address] [address] CREATININE 0.82 mg/dL 0.72-1.25 UREA NITROGEN 12 mg/dL 9-25 GLUCOSE 109 mg/dL H 74-100 SODIUM 129 mmol/L L 136-145 POTASSIUM 4.2 mmol/L 3.5-5.1 CHLORIDE 99 mmol/L 98-107 CO2 21 mmol/L L 22-29 CALCIUM 8.1 mg/dL L 8.4-10.2 ANION GAP 9 meq/L 3-19 eGFR (CKD-EPI) 90 Sep 03, 2024 07:05 AM [facility] GLYCOHEMOGLOBIN BLOOD Specimen Type: BLOOD Comment: Prediabetes: 5.7%-6.4% Diabetes: >= 6.5% [facility] guidelines for A1c interpretation: [...] 8.73 and 9.27. Ref: https://ngsp.org/CAPdata.asp. The in-house Cree-Veveo D-100 analyzer has a historical CV <= 2%. Contact the laboratory for further performance characteristics of this assay. Ordering Provider: FRANCK TURNER Report Released Date/Time: Sep 02, 2024 04:29 PM Reporting Lab: [address] [address] Performing Lab: [place] [address] GLYCOHEMOGLOBIN 5.6 4.4-5.6 Sep 03, 2024 07:05 AM [facility] OSMOLALITY SERUM Specimen Type: SERUM No comment entered. Ordering Provider: FRANCK TURNER Report Released Date/Time: Sep 02, 2024 04:44 PM Reporting Lab: [address] [address] Performing Lab: [address] [address] OSMOLALITY 271 mosm/kg L 280-300 Sep 02, 2024 08:15 PM [facility] GLUCOSE-HAND MONITOR CAPILLARY Specime n Type: CAPILLARY Comment: AAMIR DEXTER notified Test performed by: [id number] Meter #: [id number] Ordering Provider: FRANCK TURNER Report Released Date/Time: Sep 02, 2024 08:57 PM Reporting Lab: [address] [address] Performing Lab: [address] [address] GLUCOSE-HAND MONITOR 126 mg/dL H 71-99 Sep 02, 2024 06:10 PM [facility] MRSA SURVL NARES DNA NARES [...] 02, 2024 05:12 PM Reporting Lab: [address] [address] Performing Lab: [address] [address] MRSA SURVL NARES DNA Negative Negative Sep 02, 2024 05:36 PM [facility] GLUCOSE-HAND MONITOR CAPILLARY Specime n Type: CAPILLARY Comment: Test performed by: [id number] Meter #: [id number] Ordering Provider: FRANCK TURNER Report Released Date/Time: Sep 02, 2024 05:53 PM Reporting Lab: [address] [address] Performing Lab: [address] [address] GLUCOSE-HAND MONITOR 127 mg/dL H 71-99 Aug 29, 2024 10:04 PM [facility] URINALYSIS WITH REFLEX TO CULTURE URINE Specimen Type: URINE Comment: ~For Test: URINALYSIS WITH REFLEX TO CULTURE ~REORDER Ordering Provider: FELISA COLE Report Released Date/Time: Aug 29, 2024 09:36 PM Reporting Lab: [address] [address] Performing Lab: [address] [address] URINE COLOR Yellow Colorless-Yellow APPEARANCE Clear Clear [...] /[LPF] 0-28 Aug 29, 2024 08:32 PM [facility]IGH SENSITIVITY TROPONIN I PLASMA Specimen [...] 29, 2024 07:55 PM Reporting Lab: [address] [address] Performing Lab: [address] [address] HIGH SENSITIVITY TROPONIN I 7 4-35 Aug 29, 2024 08:32 PM [facility] CBC/PLT BLOOD Specimen Type: BLOOD No comment entered. Ordering Provider: FELISA COLE Report Released Date/Time: Aug 29, 2024 07:55 PM Reporting Lab: [address] [address] Performing Lab: [address] [address] WBC 11.2 10*3/uL H 5.0-10.0 RBC 3.97 10*6/uL L 4.6-6.2 HGB 10.9 g/dL L 14.0-18.0 HCT 33.5 L 42.0-52.0 MCV 84.4 fL 80.0-94.0 MCH 27.5 pg 27.0-31.0 MCHC 32.5 g/dL 32.0-36.0 PLT 230 10*3/uL 150-450 MPV 10.2 fL 9.0-13.1 RDW 14.6 11.0-16.0 NRBC 0.0 0.0-0.0 Aug 29, 2024 08:32 PM [facility] PANEL 5 PLASMA Specimen Type: PLASM [...] 29, 2024 07:55 PM Reporting Lab: [address] [address] Performing Lab: [address] [address] CREATININE 0.85 mg/dL 0.72-1.25 UREA NITROGEN 15 [...] 96 % 0 [place] Sep 08, 2024 09:03 PM 0 [place] Sep 08, 2024 03:46 PM 97.7 F 76 /min 148/70 mm[Hg] 16 /min 96 % 0 [place] Sep 08, 2024 11:42 AM 97.4 F 67 /min 125/69 mm[Hg] 92 % [place] Sep 08, 2024 09:30 AM 0 [place] [facility] Advance Directives: All historical and current [...] 08, 2024 ADVANCE DIRECTIVE DISCUSSION [facility] Radiology Reports: +/- 30 [...] BRAIN W & W/O: LUIS MANUEL PERDOMO [id number] -1945 M Exm Date: SEP 06, 2024@13:40 Req Phys: FRANCK TURNER [facility] Loc: 5-MED/TEL/09-06-2024@19:09 Img Loc: [facility] Service: [place] [address] (Case [id number] COMPLETE) MRI BRAIN W & W/O (MRI Detailed) CPT:54111 Contrast Media : Gadolinium Reason for Study: SEE CLINICAL HISTORY Pharmaceutical: GADOTERIDOL 279.3MG/ML 20ML INJ, 19ml Clinical History: MRI Screening (Required): IMPLANTED DEVICE DOCUMENTATION IMPLANTED DEVICE DOCUMENTATION NOT FOUND Does the Tunas have any Cardiac Implants? None Does the have any implanted stimulators? None Does the [place] have cochlear implants? No Does the have Cerebral aneurysm clip(s)? I don't know Does the [place]as have any shrapnel? I don't know If [...] 06, 2024 Date Verified: SEP 06, 2024 Harness Placer E-Sig: Report: MRI brain without and with [...] Staff: ARCENIO LEYVA, Staff Radiologist Verified by elementary school reading teacher for ARCENIO LEYVA /ARCENIO AVILA[facility] Sep 06, 2024 01:40 PM MRI C SPINE W & W/ O CONTRAST(FURTHER SEQUENCES): LUIS MANUEL PERDOMO [id number] -1945 M Exm Date: SEP 06, 2024@13:40 Req Phys: FRANCK TURNER Pat Loc: 5-MED/TEL/09-07-2024@06:42 Img Loc: [facility] Service: [place] [address] (Case [id number] COMPLETE) MRI C SPINE W & W/O CONTRAST(FURT(MRI Detailed) CPT:61430 Contrast Media : Gadolinium Reason for Study: SEE CLINICAL HISTORY Pharmaceutical: GADOTERIDOL 279.3MG/ML 20ML INJ, 19ml Clinical History: STATUS OF PLAIN FILMS:Not performed (Provide justification for MR W/O prior plain films below.) MRI for MS MRI Screening (Required): IMPLANTED DEVICE DOCUMENTATION IMPLANTED DEVICE DOCUMENTATION NOT FOUND Does the Tunas have any Cardiac Implants? None Does the Tunas have any implanted stimulators? None Does the have cochlear implants? No Does the [place]as have Cerebral aneurysm clip(s)? I don't know Does the Tunas have any shrapnel? I don't know If [...] 07, 2024 Date Verified: SEP 07, 2024 Harness Placer E-Sig: Report: EXAMINATION: MRI OF THE CERVICAL [...] Interpreting Staff: HUANG TAI, Radiologist Verified by elementary school reading teacher for HUANG TAI /HUANG WHEATLEY-[facility] Sep 03, 2024 10:45 AM CHEST SINGLE(1) EW: LUIS MANUEL PERDOMO [id number] -1945 M Exm Date: SEP 03, 2024@10:45 Req Phys: FRANCK TURNER Pat Loc: 5-MED/TEL/09-03-2024@10:56 Img Loc: [facility] RADIOLOGY Service: [place] [address] (Case [id number] COMPLETE)CHEST SINGLE(1) VIEW (RAD Detailed) CPT:05188 Proc Modifiers : PORTABLE EXAM Reason for Study: Eval volume status Clinical History: Report Status: Verified Date Reported: SEP 03, 2024 Date Verified: SEP 03, 2024 Harness Placer E-Sig: Report: EXAMINATION: SINGLE VIEW CHEST CLINICAL [...] Interpreting Staff: HUANG TAI, Radiologist Verified by elementary school reading teacher for HUANG TAI /HUANG WHEATLEY-CDD [facility] Aug 29, 2024 08:[address] HEAD W/O CONT: LUIS MANUEL PERDOMO [id number] -1945 M Exm Date: AUG 29, 2024@20:28 Req Phys: FELISA COLE Loc: ED/4P-12A (Req'g Loc) Img Loc: CT SCAN Service: Unknown [place] [id number] (Case [id number] COMPLETE) CT HEAD W/O CONT (CT Detailed) CPT:62164 Reason for Study: SEE CLINICAL HISTORY Clinical History: REASON FOR SEND OUT: ATTENDING PHYSICIAN NAME: New transient neurological s/s - suspected TIA HISTORY/REASON FOR EXAM: confusion Report Status: Verified Date Reported: AUG 29, 2024 Date Verified: AUG 29, 2024 Harness Placer E-Sig: Report: HISTORY confusion COMPARISON No prior [...] Staff: ABDIRAHMAN CROW, Staff Physician Verified by elementary school reading teacher for ABDIRAHMAN CROW /ABDIRAHMAN [facility] Pathology Reports: +/- 30 days [...] PORT: Reporting Lab: [facility] [CLIA# [id number]] [address] [place] [id number] Accession [UID]: [id number] [[id number]] Received: Sep 03, 2024@14:02 Collection sample: URINE, [...] Report Performed By: [facility] [CLIA# [id number]] [address] [place] [id number] BHARATI,MAGDY D [facility] Sep 02, 2024 06:00 PM LR MICROBIOLOGY RE PORT: Reporting Lab: [facility] [CLIA# [id number]] [address] [place] [address] Accession [UID]: [id number] [[id number]] Received: Sep 02, 2024@18:07 Collection sample: BLD CULTURE BOTTLES Collection date: Sep 02, 2024 18:00 Site/Specimen: BLOOD Provider: FRANCK TURNER Comment on specimen: L HAND Test(s) ordered: CULTURE, BLOOD................ completed: Sep 08, 2024 * BACTERIOLOGY FINAL REPORT => Sep 08, 2024 08:25 TECH CODE: [id number] Bacteriology Remark(s): Blood culture status=NO GROWTH (unless notified otherwise) 09/03/2024 AEROBIC: NO GROWTH ANAEROBIC: NO GROWTH =--=--=--=--=--=--=--=--=--=-- =--=--=--=--=--=--=--=--=--=-- =--=--=--=--=--=-- Performing Laboratory: Bacteriology Report Performed By: [facility] [CLIA# [id number]] [address] [place], [place] [id number] MAGDY CALABRESE [facility] Aug 29, 2024 10:18 PM LR MICROBIOLOGY RE PORT: Reporting Lab: [facility] [CLIA# [id number]] [address] [place], [place] [id number] Accession [UID]: [id number] [[id number]] Received: Aug 29, 2024@22:18 Collection sample: URINE, CLEAN CATCH Collection date: Aug 29, 2024 22:18 Site/Specimen: URINE Provider: FELISA COLE Test(s) ordered: CULTURE, URINE................ completed: Aug 31, 2024 09:51 * BACTERIOLOGY FINAL REPORT => Aug 31, 2024 09:51 TECH CODE: [id number] Bacteriology Remark(s): NO GROWTH 08/30/2024 <10,000 CFU/ML. 08/31/2024 =--=--=--=--=--=--=--=--=--=-- =--=--=--=--=--=--=--=--=--=-- =--=--=--=--=--=-- Performing Laboratory: Bacteriology Report Performed By: [facility] [CLIA# [id number]] [address] [place] [address] MAGDY CALABRESE-[facility]
--- OUTSIDE RECORDS SUMMARY | 2024-09-08 07:08 | XMS_ITS | Encounter Summary ---
Author Name [facility] [place] Organization [facility] [place] Address [address] [place] [address] Care Team Providers Care Instrument Tech Name Role Phone YULISSA HENDERSON Primary Care [...] PLAN F Mar 24, 2014 PLAN F [id number] LUIS MANUEL PERDOMO PATIENT BS [place] BLUECARD PREFERRED PROVIDER ORGANIZAT ION (PPO) [facility] Sep 21, 2012 [id number] [phone] LUIS MANUEL PERDOMO PATIENT [employer] ([id number]) PRESCRIPT ION WL3A Sep 21, 2012 [id number] [phone] LUIS MANUEL PERDOMO PATIENT MEDICARE (WNR) MEDICARE (M) PART B Sep 21, 2012 PART B [id number] NOEMI PERDOMO PATIENT MEDICARE (WNR) MEDICARE (M) PART A Jan 22, 2011 PART A [id number] NOEMI PERDOMO PATIENT MEDICARE PART D (WNR) MEDICARE (M) PART D Mar 24, 2014 PART D [id number] LUIS MANUEL PERDOMO PATIENT Selected Encounter This section includes the information on record at [place] for the Encounter. Date/Time Encounter Type Encounter Description Reason Provider Source Sep 08, 2024 11:08 AM THERAPEUTIC ACTIVITIES PHYSICAL THERAPY ICD-10-CM M62.81 Muscle weakness (generalized) Y[facility] COWART IHStephen Encounter Template Text not used by [place] Assessments - Encounter Diagnoses This section includes the primary and secondary diagnoses documented for the Encounter. Date/Time Primary/Secondary Diagnosis Diagnosis Name Provider Source Sep 08, 2024 02:38 PM PRIMARY Muscle weakness (generalized) [facility] Plan of Treatment: Future [...] 08:00 AM AMBULATORY - NONE [place] [facility] Sep 30, 2024 01:30 PM AMBULATORY - SURGERY [place] [facility] Active, Pending, and Scheduled Orders This section includes a listing of several types of active, pending, and scheduled orders, including clinic medications orders, diagnostic test orders, procedure orders and consult orders; where the start date of the order is 45 days before the date of the Encounter or 45 days after the date of theEncounter. The data comes from all [place] treatment [place] [facility]. Test Date/Time Test Type Test Details Facility Name Sep 13, 2024 01:33 PM Consult Order [facility] Cons Weed Science Research Technician's Choice [facility] Lab Results: +/- 30 days of [...] Type Comment Sep 09, 2024 12:16 PM [facility] GLUCOSE-HAND MONITOR CAPILLARY Specimen Type: CAPILLARY Comment: Test performed by: [id number] Meter #: [id number] Ordering Provider: FRANCK TURNER Report Released Date/Time: Sep 09, 2024 12:33 PM Reporting Lab: [address] [address] Performing Lab: [address] [address] GLUCOSE-HAND MONITOR 116 mg/dL H 71-99 Sep 09, 2024 06:07 AM [facility] GLUCOSE-HAND MONITOR CAPILLARY Specime n Type: CAPILLARY Comment: Test performed by: [id number] Meter #: [id number] Ordering Provider: FRANCK TURNER Report Released Date/Time: Sep 09, 2024 08:17 AM Reporting Lab: [address] [address] Performing Lab: [address] [address] GLUCOSE-HAND MONITOR 112 mg/dL H 71-99 Sep 08, 2024 09:13 PM [facility] GLUCOSE-HAND MONITOR CAPILLARY Specime n Type: CAPILLARY Comment: Test performed by: [id number] Meter #: [id number] Ordering Provider: FRANCK TURNER Report Released Date/Time: Sep 08, 2024 09:31 PM Reporting Lab: [address] [address] Performing Lab: [address] [address] GLUCOSE-HAND MONITOR 107 mg/dL H 71-99 Sep 08, 2024 03:49 PM [facility] GLUCOSE-HAND MONITOR CAPILLARY Specime n Type: CAPILLARY Comment: AAMIR RN notified Test performed by: [id number] Meter #: [id number] Ordering Provider: FRANCK TURNER Report Released Date/Time: Sep 08, 2024 04:33 PM Reporting Lab: [address] [address] Performing Lab: [address] [address] GLUCOSE-HAND MONITOR 162 mg/dL H -Sep 08, 2024 11:43 AM [facility] GLUCOSE-HAND MONITOR CAPILLARY Specime n Type: CAPILLARY Comment: AAMIR RN notified Test performed by: [id number] Meter #: [id number] Ordering Provider: FRANCK TURNER Report Released Date/Time: Sep 08, 2024 12:03 PM Reporting Lab: [address] [address] Performing Lab: [address] [address] GLUCOSE-HAND MONITOR 133 mg/dL H Sep 08, 2024 06:13 AM [facility] GLUCOSE-HAND MONITOR CAPILLARY Specime n Type: CAPILLARY Comment: Test performed by: [id number] Meter #: [id number] Ordering Provider: FRANCK TURNER Report Released Date/Time: Sep 08, 2024 06:46 AM Reporting Lab: [address] [address] Performing Lab: [address] [address] GLUCOSE-HAND MONITOR 104 mg/dL H Sep 07, 2024 07:59 PM [facility] GLUCOSE-HAND MONITOR CAPILLARY Specime n Type: CAPILLARY Comment: Test performed by: [id number] Meter #: [id number] Ordering Provider: FRANCK TURNER Report Released Date/Time: Sep 07, 2024 09:05 PM Reporting Lab: [address] [address] Performing Lab: [address] [address] GLUCOSE-HAND MONITOR 107 mg/dL H Sep 07, 2024 04:39 PM [facility] GLUCOSE-HAND MONITOR CAPILLARY Specime n Type: CAPILLARY Comment: Test performed by: [id number] Meter #: [id number] Ordering Provider: FRANCK TURNER Report Released Date/Time: Sep 07, 2024 05:09 PM Reporting Lab: [address] [address] Performing Lab: [address] [address] GLUCOSE-HAND MONITOR 105 mg/dL H 71-99 Sep 07, 2024 11:41 AM [facility] GLUCOSE-HAND MONITOR CAPILLARY Specime n Type: CAPILLARY Comment: Test performed by: [id number] Meter #: [id number] Ordering Provider: FRANCK TURNER Report Released Date/Time: Sep 07, 2024 12:41 PM Reporting Lab: [address] [address] Performing Lab: [address] [address] GLUCOSE-HAND MONITOR 144 mg/dL H -Sep 07, 2024 05:56 AM [facility] GLUCOSE-HAND MONITOR CAPILLARY Specime n Type: CAPILLARY Comment: Test performed by: [id number] Meter #: [id number] Ordering Provider: FRANCK TURNER Report Released Date/Time: Sep 07, 2024 06:31 AM Reporting Lab: [address] [address] Performing Lab: [address] [address] GLUCOSE-HAND MONITOR 96 mg/dL -Sep 06, 2024 08:10 PM [facility] GLUCOSE-HAND MONITOR CAPILLARY Specime n Type: CAPILLARY Comment: Test performed by: [id number] Meter #: [id number] Ordering Provider: FRANCK TURNER Report Released Date/Time: Sep 06, 2024 08:52 PM Reporting Lab: [address] [address] Performing Lab: [address] [address] GLUCOSE-HAND MONITOR 124 mg/dL H -Sep 06, 2024 04:27 PM [facility] GLUCOSE-HAND MONITOR CAPILLARY Specime n Type: CAPILLARY Comment: Test performed by: [id number] Meter #: [id number] Ordering Provider: FRANCK TURNER Report Released Date/Time: Sep 06, 2024 05:15 PM Reporting Lab: [address] [address] Performing Lab: [address] [address] GLUCOSE-HAND MONITOR 107 mg/dL H -Sep 06, 2024 12:12 PM [facility] GLUCOSE-HAND MONITOR CAPILLARY Specime n Type: CAPILLARY Comment: Test performed by: [id number] Meter #: [id number] Ordering Provider: FRANCK TURNER Report Released Date/Time: Sep 06, 2024 12:29 PM Reporting Lab: [address] [address] Performing Lab: [address] [address] GLUCOSE-HAND MONITOR 181 mg/dL H -Sep 06, 2024 06:13 AM [facility] GLUCOSE-HAND MONITOR CAPILLARY Specime n Type: CAPILLARY Comment: Test performed by: [id number] Meter #: [id number] Ordering Provider: FRANCK TURNER Report Released Date/Time: Sep 06, 2024 06:36 AM Reporting Lab: [address] [address] Performing Lab: [address] [address] GLUCOSE-HAND MONITOR 102 mg/dL H -Sep 05, 2024 08:47 PM [facility] GLUCOSE-HAND MONITOR CAPILLARY Specime n Type: CAPILLARY Comment: Test performed by: [id number] Meter #: [id number] Ordering Provider: FRANCK TURNER Report Released Date/Time: Sep 06, 2024 02:13 AM Reporting Lab: [address] [address] Performing Lab: [address] [address] GLUCOSE-HAND MONITOR 103 mg/dL H -Sep 05, 2024 04:40 PM [facility] GLUCOSE-HAND MONITOR CAPILLARY Specime n Type: CAPILLARY Comment: AAMIR RN notified Test performed by: [id number] Meter #: [id number] Ordering Provider: FRANCK TURNER Report Released Date/Time: Sep 05, 2024 05:11 PM Reporting Lab: [address] [address] Performing Lab: [address] [address] GLUCOSE-HAND MONITOR 113 mg/dL H Sep 05, 2024 12:06 PM [facility] GLUCOSE-HAND MONITOR CAPILLARY Specime n Type: CAPILLARY Comment: Test performed by: [id number] Meter #: [id number] Ordering Provider: FRANCK TURNER Report Released Date/Time: Sep 05, 2024 12:23 PM Reporting Lab: [address] [address] Performing Lab: [address] [address] GLUCOSE-HAND MONITOR 115 mg/dL H Sep 05, 2024 06:26 AM [facility] GLUCOSE-HAND MONITOR CAPILLARY Specime n Type: CAPILLARY Comment: AAMIR Correction Dose Test performed by: [id number] Meter #: [id number] Ordering Provider: FRANCK TURNER Report Released Date/Time: Sep 05, 2024 06:43 AM Reporting Lab: [address] [address] Performing Lab: [address] [address] GLUCOSE-HAND MONITOR 111 mg/dL H Sep 04, 2024 08:59 PM [facility] GLUCOSE-HAND MONITOR CAPILLARY Specime n Type: CAPILLARY Comment: AAMIR RN notified Test performed by: [id number] Meter #: [id number] Ordering Provider: FRANCK TURNER Report Released Date/Time: Sep 04, 2024 09:36 PM Reporting Lab: [address] [address] Performing Lab: [address] [address] GLUCOSE-HAND MONITOR 123 mg/dL H Sep 04, 2024 04:41 PM [facility] GLUCOSE-HAND MONITOR CAPILLARY Specime n Type: CAPILLARY Comment: AAMIR RN notified Test performed by: [id number] Meter #: [id number] Ordering Provider: FRANCK TURNER Report Released Date/Time: Sep 04, 2024 05:03 PM Reporting Lab: [place] [phone] Performing Lab: [place] [phone] GLUCOSE-HAND MONITOR 118 mg/dL H Sep 04, 2024 12:36 PM [facility] GLUCOSE-HAND MONITOR CAPILLARY Specime n Type: CAPILLARY Comment: AAMIR RN notified Test performed by: [id number] Meter #: [id number] Ordering Provider: FRANCK TURNER Report Released Date/Time: Sep 04, 2024 12:53 PM Reporting Lab: [place] [phone] Performing Lab: [place] [phone] GLUCOSE-HAND MONITOR 129 mg/dL H Sep 04, 2024 12:03 PM [facility] RESPIRATORY VIRUS PANEL (BIOFIRE) NASOPHARYN X Specimen Type: NASOPHARYNX Comment: ~For Test: RESPIRATORY VIRUS PANEL (BIOFIRE) ~ORDER READ BACK TO: FRANCK TURNER 09/04/24@11:30 Ordering Provider: FRANCK TURNER Report Released Date/Time: Sep 04, 2024 11:33 AM Reporting Lab: [place] [address] Performing Lab: [place] [address] ADENOVIRUS (BIOFIRE) Not Detected -Not D etected [...] Detected Sep 04, 2024 06:55 AM [facility] MAGNESIUM PLASMA Specimen Type: PLASM A [...] Sep 03, 2024 11:10 AM Reporting Lab: [facility] [address] [facility] [address] Performing Lab: [facility] [address] [place] [address] MAGNESIUM 1.8 mg/dL 1.6-2.6 Sep 04, 2024 06:55 AM [facility] PANEL 1 PLASMA Specimen Type: PLASM [...] 03, 2024 11:10 AM Reporting Lab: [address] [address] Performing Lab: [place] [phone] CREATININE 0.75 mg/dL 0.72-1.25 UREA NITROGEN 13 mg/dL 9-25 GLUCOSE 105 mg/dL H 74-100 SODIUM 128 mmol/L L 136-145 POTASSIUM 3.9 mmol/L 3.5-5.1 CHLORIDE 99 mmol/L 98-107 CO2 21 mmol/L L 22-29 CALCIUM 8.0 mg/dL L 8.4-10.2 ANION GAP 8 meq/L 3-19 eGFR (CKD-EPI) >90 Sep 04, 2024 06:02 AM [facility] GLUCOSE-HAND MONITOR CAPILLARY Specime n Type: CAPILLARY Comment: Test performed by: [id number] Meter #: [id number] Ordering Provider: FRANCK TURNER Report Released Date/Time: Sep 04, 2024 06:28 AM Reporting Lab: [address] [address] Performing Lab: [place] [phone] GLUCOSE-HAND MONITOR 114 mg/dL H -99 Sep 03, 2024 05:19 PM [facility] GLUCOSE-HAND MONITOR CAPILLARY Specime n Type: CAPILLARY Comment: Test performed by: [id number] Meter #: [id number] Ordering Provider: FRANCK TURNER Report Released Date/Time: Sep 03, 2024 05:37 PM Reporting Lab: [place] [phone] Performing Lab: [place] [phone] GLUCOSE-HAND MONITOR 124 mg/dL H 71-99 Sep 03, 2024 04:41 PM [facility] GLUCOSE-HAND MONITOR CAPILLARY Specime n Type: CAPILLARY Comment: Test performed by: [id number] Meter #: [id number] Ordering Provider: FRANCK TURNER Report Released Date/Time: Sep 03, 2024 06:09 PM Reporting Lab: [address] [address] Performing Lab: [address] [address] GLUCOSE-HAND MONITOR 112 mg/dL H 71-99 Sep 03, 2024 01:35 PM [facility] CREATININE URINE Specimen Type: URINE Comment: ~Altered mental status with no identifiable cause Ordering Provider: FRANCK TURNER Report Released Date/Time: Sep 02, 2024 04:44 PM Reporting Lab: [address] [address] Performing Lab: [address] [address] CREATININE 150.9 mg/dL Sep 03, 2024 01:35 PM [facility] URINE LYTES URINE Specimen Type : URINE Comment: ~Altered mental status with no identifiable cause Ordering Provider: FRANCK TURNER Report Released Date/Time: Sep 02, 2024 04:44 PM Reporting Lab: [address] [address] Performing Lab: [address] [address] SODIUM 130 mmol/L POTASSIUM 47.6 mmol/L CHLORIDE 137 mmol/L Sep 03, 2024 01:35 PM [facility] UREA NITROGEN URINE Specimen Type : URINE Comment: ~Altered mental status with no identifiable cause Ordering Provider: FRANCK TURNER Report Released Date/Time: Sep 02, 2024 04:44 PM Reporting Lab: [address] [address] Performing Lab: [address] [address] UREA NITROGEN 320 mg/dL Sep 03, 2024 01:35 PM [facility] OSMOLALITY URINE Specimen Type: URINE Comment: ~Altered mental status with no identifiable cause Ordering Provider: FRANCK TURNER Report Released Date/Time: Sep 02, 2024 04:44 PM Reporting Lab: [place] [phone] Performing Lab: [address] [address] OSMOLALITY 522 mosm/kg 38-1400 Sep 03, 2024 01:35 PM [facility] URINALYSIS WITH REFLEX TO CULTURE URINE Specimen Type: URINE Comment: ~Altered mental status with no identifiable cause Ordering Provider: FRANCK TURNER Report Released Date/Time: Sep 02, 2024 04:44 PM Reporting Lab: [address] [address] Performing Lab: [address] [address] URINE COLOR Yellow Colorless-Yellow APPEARANCE CLOUDY H [...] 03, 2024 11:58 AM [facility] GLUCOSE-HAND MONITOR CAPILLARY Specime n Type: CAPILLARY Comment: AAMIR RN notified Test performed by: [id number] Meter #: [id number] Ordering Provider: FRANCK TURNER Report Released Date/Time: Sep 03, 2024 12:15 PM Reporting Lab: [address] [address] Performing Lab: [address] [address] GLUCOSE-HAND MONITOR 135 mg/dL H 71-99 Sep 03, 2024 07:09 AM [facility] GLUCOSE-HAND MONITOR CAPILLARY Specime n Type: CAPILLARY Comment: Test performed by: [id number] Meter #: [id number] Ordering Provider: FRANCK TURNER Report Released Date/Time: Sep 03, 2024 07:26 AM Reporting Lab: [address] [address] Performing Lab: [address] [address] GLUCOSE-HAND MONITOR 120 mg/dL H 71-99 Sep 03, 2024 07:05 AM [facility] CBC/PLT BLOOD Specimen Type: BLOOD No comment entered. Ordering Provider: FRANCK TURNER Report Released Date/Time: Sep 02, 2024 04:29 PM Reporting Lab: [address] [address] Performing Lab: [address] [address] WBC 6.9 10*3/uL 5.0-10.0 RBC 3.48 10*6/uL L 4.6-6.2 HGB 9.5 g/dL L 14.0-18.0 HCT 29.1 L 42.0-52.0 MCV 83.6 fL 80.0-94.0 MCH 27.3 pg 27.0-31.0 MCHC 32.6 g/dL 32.0-36.0 PLT 258 10*3/uL 150-450 MPV 10.3 fL 9.0-13.1 RDW 14.8 11.0-16.0 NRBC 0.0 0.0-0.0 Sep 03, 2024 07:05 AM [facility] MAGNESIUM PLASMA Specimen Type: PLASM A [...] 02, 2024 04:29 PM Reporting Lab: [address] [address] Performing Lab: [address] [address] MAGNESIUM 1.7 mg/dL 1.6-2.6 Sep 03, 2024 07:05 AM [facility] PANEL 1 PLASMA Specimen Type: PLASM [...] 02, 2024 04:29 PM Reporting Lab: [address] [address] Performing Lab: [address] [address] CREATININE 0.82 mg/dL 0.72-1.25 UREA NITROGEN 12 mg/dL 9-25 GLUCOSE 109 mg/dL H 74-100 SODIUM 129 mmol/L L 136-145 POTASSIUM 4.2 mmol/L 3.5-5.1 CHLORIDE 99 mmol/L 98-107 CO2 21 mmol/L L 22-29 CALCIUM 8.1 mg/dL L 8.4-10.2 ANION GAP 9 meq/L 3-19 eGFR (CKD-EPI) 90 Sep 03, 2024 07:05 AM [facility] GLYCOHEMOGLOBIN BLOOD Specimen Type: BLOOD Comment: Prediabetes: 5.7%-6.4% Diabetes: >= 6.5% [facility] guidelines for A1c interpretation: Glycemic control [...] 8.73 and 9.27. Ref: https://ngsp.org/CAPdata.asp. The in-house [employer] D-100 analyzer has a historical CV <= 2%. Contact the laboratory for further performance characteristics of this assay. Ordering Provider: FRANCK TURNER Report Released Date/Time: Sep 02, 2024 04:29 PM Reporting Lab: [place] [phone] Performing Lab: [place] [phone] GLYCOHEMOGLOBIN 5.6 4.4-5.6 Sep 03, 2024 07:05 AM [facility] OSMOLALITY SERUM Specimen Type: SERUM No comment entered. Ordering Provider: FRANCK TURNER Report Released Date/Time: Sep 02, 2024 04:44 PM Reporting Lab: [place] [phone] Performing Lab: [place] [phone] OSMOLALITY 271 mosm/kg L 280-300 Sep 02, 2024 08:15 PM [facility] GLUCOSE-HAND MONITOR CAPILLARY Specime n Type: CAPILLARY Comment: AAMIR DEXTER notified Test performed by: [id number] Meter #: [id number] Ordering Provider: FRANCK TURNER Report Released Date/Time: Sep 02, 2024 08:57 PM Reporting Lab: [place] [phone] Performing Lab: [place] [phone] GLUCOSE-HAND MONITOR 126 mg/dL H 71-99 Sep 02, 2024 06:10 PM [facility] MRSA SURVL NARES DNA NARES Specime [...] 02, 2024 05:12 PM Reporting Lab: [address] [address] Performing Lab: [place] [phone] MRSA SURVL NARES DNA Negative Negative Sep 02, 2024 05:36 PM [facility] GLUCOSE-HAND MONITOR CAPILLARY Specime n Type: CAPILLARY Comment: Test performed by: [id number] Meter #: [id number] Ordering Provider: FRANCK TURNER Report Released Date/Time: Sep 02, 2024 05:53 PM Reporting Lab: [address] [address] Performing Lab: [place] [phone] GLUCOSE-HAND MONITOR 127 mg/dL H 71-99 Aug 29, 2024 10:04 PM [facility] URINALYSIS WITH REFLEX TO CULTURE URINE Specimen Type: URINE Comment: ~For Test: URINALYSIS WITH REFLEX TO CULTURE ~REORDER Ordering Provider: FELISA COLE Report Released Date/Time: Aug 29, 2024 09:36 PM Reporting Lab: [address] [address] Performing Lab: [address] [address] URINE COLOR Yellow Colorless-Yellow APPEARANCE Clear Clear [...] /[LPF] 0-28 Aug 29, 2024 08:32 PM [facility] HIGH SENSITIVITY TROPONIN I [...] 29, 2024 07:55 PM Reporting Lab: [address] [address] Performing Lab: [address] [address] HIGH SENSITIVITY TROPONIN I 7 4-35 Aug 29, 2024 08:32 PM [facility] CBC/PLT BLOOD Specimen Type: BLOOD No comment entered. Ordering Provider: FELISA COLE Report Released Date/Time: Aug 29, 2024 07:55 PM Reporting Lab: [address] [address] Performing Lab: [facility] [address] [facility] [address] WBC 11.2 10*3/uL H 5.0-10.0 RBC 3.97 10*6/uL L 4.6-6.2 HGB 10.9 g/dL L 14.0-18.0 HCT 33.5 L 42.0-52.0 MCV 84.4 fL 80.0-94.0 MCH 27.5 pg 27.0-31.0 MCHC 32.5 g/dL 32.0-36.0 PLT 230 10*3/uL 150-450 MPV 10.2 fL 9.0-13.1 RDW 14.6 11.0-16.0 NRBC 0.0 0.0-0.0 Aug 29, 2024 08:32 PM [facility] PANEL 5 PLASMA Specimen Type: PLASM [...] 29, 2024 07:55 PM Reporting Lab: [address] [address] Performing Lab: [address] [address] CREATININE 0.85 mg/dL 0.72-1.25 UREA NITROGEN 15 [...] Sep 08, 2024 09:03 PM 0 [place] Sep 08, 2024 03:46 PM 97.7 F 76 /min 148/70 mm[Hg] 16 /min 96 % 0 [place] Sep 08, 2024 11:42 AM 97.4 F 67 /min 125/69 mm[Hg] 92 % [place] Sep 08, 2024 09:30 AM [facility] Advance Directives: All historical and [...] 08, 2024 ADVANCE DIRECTIVE DISCUSSION [facility] Radiology Reports: +/- 30 days [...] MRI BRAIN W & W/O: LUIS MANUEL PERDMOO [id number] -1945 M Exm Date: SEP 06, 2024@13:40 Req Phys: FRANCK TURNER Pat Loc: 5-MED/TEL/09-06-2024@19:09 Img Loc: [facility] Service: [place] [address] (Case [id number] COMPLETE) MRI BRAIN W & W/O (MRI Detailed) CPT:36099 Contrast Media : Gadolinium Reason for Study: SEE CLINICAL HISTORY Pharmaceutical: GADOTERIDOL 279.3MG/ML 20ML INJ, 19ml Clinical History: MRI Screening (Required): IMPLANTED DEVICE DOCUMENTATION IMPLANTED DEVICE DOCUMENTATION NOT FOUND Does the [place] have any Cardiac Implants? None Does the have any implanted stimulators? None Does the have cochlear implants? No Does the have Cerebral aneurysm clip(s)? I don't know Does the [place] have any shrapnel? I don't know If yes, where in your body? Please list other implants not listed above: MRI table has a weight limit of 551 lbs. [place]'s Weight: *212 lb [96.16 kg] (09/04/2024 05:19) Is this patient claustrophobic?: No REASON FOR EXAM:MULTIPLE SCLEROSIS (indicate suspected or established) PERTINENT PATIENT HISTORY: MS c/f for flare Risk factors for GADOLINIUM NEPHROGENIC SYSTEMIC SCLEROSIS: Report Status: Verified Date Reported: SEP 06, 2024 Date Verified: SEP 06, 2024 Sharepoint Admin E-Sig: Report: MRI brain without and with [...] Staff: ARCENIO LEYVA, Staff Radiologist Verified by java portal developer for ARCENIO LEYVA /[facility] Sep 06, 2024 01:40 PM MRI C SPINE W & W/ O CONTRAST(FURTHER SEQUENCES): LUIS MANUEL PERDOMO [id number] -1945 M Exm Date: SEP 06, 2024@13:40 Req Phys: FRANCK TURNER [facility] Loc: 5-MED/TEL/09-07-2024@06:42 Img Loc: [facility] Service: [place] [address] (Case [id number] COMPLETE) MRI C SPINE W & W/O CONTRAST(FURT(MRI Detailed) CPT:94039 Contrast Media : Gadolinium Reason for Study: SEE CLINICAL HISTORY Pharmaceutical: GADOTERIDOL 279.3MG/ML 20ML INJ, 19ml Clinical History: STATUS OF PLAIN FILMS:Not performed (Provide justification for MR W/O prior plain films below.) MRI for MS MRI Screening (Required): IMPLANTED DEVICE DOCUMENTATION IMPLANTED DEVICE DOCUMENTATION NOT FOUND Does the have any Cardiac Implants? None Does the have any implanted stimulators? None Does the [place] have cochlear implants? No Does the [place] have Cerebral aneurysm clip(s)? I don't know [...] 07, 2024 Date Verified: SEP 07, 2024 Sharepoint Admin E-Sig: Report: EXAMINATION: MRI OF THE CERVICAL [...] Interpreting Staff: HUANG TAI, Radiologist Verified by java portal developer for HUANG TAI /HUANG [facility] Sep 03, 2024 10:45 AM CHEST SINGLE(1) EW: LUIS MANUEL PERDOMO [id number] -1945 M Exm Date: SEP 03, 2024@10:45 Req Phys: FRANCK TURNER [facility] Loc: 5-MED/TEL/09-03-2024@10:56 Img Loc: [facility] RAD[facility]OLOGY Service: [place] [address] (Case [id number] COMPLETE)CHEST SINGLE(1) VIEW (RAD Detailed) CPT:08825 Proc Modifiers : PORTABLE EXAM Reason for Study: Eval volume status Clinical History: Report Status: Verified Date Reported: SEP 03, 2024 Date Verified: SEP 03, 2024 Sharepoint Admin E-Sig: Report: EXAMINATION: SINGLE VIEW CHEST CLINICAL [...] Interpreting Staff: HUANG TAI, Radiologist Verified by java portal developer for HUANG TAI /HUANG [facility] Aug 29, 2024 08:[address] HEAD W/O CONT: LEANNELUIS MANUEL FINCH [id number] -1945 M Exm Date: AUG 29, 2024@20:28 Req Phys: FELISA COLE Loc: ED/4P-12A (Req'g Loc) Img Loc: CT SCAN Service: [place] [address] (Case [id number] COMPLETE) CT HEAD W/O CONT (CT Detailed) CPT:66040 Reason for Study: SEE CLINICAL HISTORY Clinical History: REASON FOR SEND OUT: ATTENDING PHYSICIAN NAME: New transient neurological s/s - suspected TIA HISTORY/REASON FOR EXAM: confusion Report Status: Verified Date Reported: AUG 29, 2024 Date Verified: AUG 29, 2024 Sharepoint Admin E-Sig: Report: HISTORY confusion COMPARISON No prior [...] Staff: ABDIRAHMAN CROW, Staff Physician Verified by java portal developer for ABDIRAHMAN CROW /[facility] Pathology Reports: +/- 30 days [...] Reporting Lab: [facility] [CLIA# [id number]] [address] [place] [id number] Accession [UID]: [id number] [[id number]] Received: Sep 03, 2024@14:02 Collection sample: URINE, [...] Performed By: [facility] [IA# [id number]] [address] [place], [place] [address] MAGDY CALABRESE [facility] Sep 02, 2024 06:00 PM LR MICROBIOLOGY RE PORT: Reporting Lab: [facility] [IA# [id number]] [address] [place], [place] [id number] Accession [UID]: [id number] [[id number]] Received: Sep 02, 2024@18:07 Collection sample: BLD CULTURE BOTTLES Collection date: Sep 02, 2024 18:00 Site/Specimen: BLOOD Provider: FRANCK TURNER Comment on specimen: L HAND Test(s) ordered: CULTURE, BLOOD................ completed: Sep 08, 2024 * BACTERIOLOGY FINAL REPORT => Sep 08, 2024 08:25 [facility] CODE: [id number] Bacteriology Remark(s): Blood culture status=NO GROWTH (unless notified otherwise) 09/03/2024 AEROBIC: NO GROWTH ANAEROBIC: NO GROWTH =--=--=--=--=--=--=--=--=--=-- =--=--=--=--=--=--=--=--=--=-- =--=--=--=--=--=-- Performing Laboratory: Bacteriology Report Performed By: [facility] [CLIA# [id number]] [address] [place], [place] [id number] MAGDY CALABRESE [facility] Aug 29, 2024 10:18 PM LR MICROBIOLOGY RE PORT: Reporting Lab: [facility] [IA# [id number]] [address] [place] [address] Accession [UID]: [id number] [[id number]] Received: Aug 29, 2024@22:18 Collection sample: URINE, CLEAN CATCH Collection date: Aug 29, 2024 22:18 Site/Specimen: URINE Provider: FELISA COLE Test(s) ordered: CULTURE, URINE................ completed: Aug 31, 2024 09:51 * BACTERIOLOGY FINAL REPORT => Aug 31, 2024 09:51 TECH CODE: [id number] Bacteriology Remark(s): NO GROWTH 08/30/2024 <10,000 CFU/ML. 08/31/2024 =--=--=--=--=--=--=--=--=--=-- =--=--=--=--=--=--=--=--=--=-- =--=--=--=--=--=-- Performing Laboratory: Bacteriology Report Performed By: [facility] [CLIA# [id number]] [address] [place] [address] MAGDY CALABRESE [facility] Encounter Notes: All associated encounter notes This section contains the clinical notes associated to the Encounter. Date/Time Encounter Note(s) Provider Source Sep 08, 2024 11:08 AM PHYSICAL THERAPY N OTE: LOCAL TITLE: PHYSICAL THERAPY DAILY NOTE STANDARD TITLE: PHYSICAL THERAPY NOTE DATE OF NOTE: SEP 08, 2024@11:08 ENTRY DATE: SEP 08, 2024@14:25:17 AUTHOR: YI COWART EXP COSIGNER: URGENCY: STATUS: COMPLETED PHYSICAL THERAPY DAILY NOTE Has ADDENDA Medical Diagnosis: Suspected HF Reason for Consult: PT eval/recs Precautions: No precautions Referring team: [place] SUBJECTIVE: Pt stated he sat on the EOB earlier to eat breakfast and feels better. Patient seen: Patient seen: 5M, RN ok'd treatment, Pt agreeable Pt without complaints. Lives: With spouse Description of home: 2 story, Lives on main floor of multilevel home Home Entry: Ramp PLOF: Ambulatory, With assistive device, Reports falls at home Equipment Owned: Straight cane, RW, Manual w/c, Rollator, Lift chair OBJECTIVE: OBSERVATION: OT present Patient Position: Supine in bed Orientation: Oriented to: Person, Place Follows commands: 100% Lines: Pure wick Other: VITALS: NT this date BP: O2 Sat: HR: PAIN: Location: None reported Ratin/10 RANGE OF MOTION: (At eval) Upper Extremities: See OT note Lower Extremities: RLE WFL; LLE AROM due to weakness, PROM WFL STRENGTH/TONE: (At eval) Upper Extremities: See OT note Lower Extremities: WFL RLE grossly 3+/5; LLE grossly 3/5 BED MOBILITY: Supine to sit: SBA Sit to supine: TRANSFERS: Sit to/from Stand: Min assist , x2 Bed to chair: Min assist , x2 BALANCE: Sitting - Static: Good Sitting - Dynamic: Fair Standing - Static: Fair Standing - Dynamic: Fair GAIT: Distance: 2 feet to bedside chair Assistance Level: Roro x2 Assistive device: RW Gait description: Increased knee flexion with steps THERAPEUTIC ACTIVITY: Patient transferred from supine to EOB with SBA but required extra time to complete. Pt sat EOB with CGA for 3 minutes. Pt transferred to standing with Roro x2 and stepped to bedside chair with gait belt, RW, and Roro x2 with cueing for safety and hand placement. EDUCATION: - Improved mobility this date and tolerance to activity. - OOBTC through lunch today if possible Pt left at end of session: Seated in bedside chair, Call light in reach, RN notified, On lift sling, Instructed to call for assist with mobility PATIENT EDUCATION/SELF CARE: Purpose of PT, Benefits of activity BARRIERS: None PATIENT TREATMENT TIME: 14 minutes PROCEDURES: Therapeutic Activity ASSESSMENT: Patient demonstrated improved activity tolerance this date and less assistance with transfers. Pt remains unsafe to return home at this time and would benefit from continued skilled PT. PT Prognosis: Fair GOALS: LT-14 days/. Pt will perform transfers: with CGA x1 2. Pt will ambulate: 10 ft with AD and CGA x1 PT PLAN: 3-5x/week, Gait training, Bed mobility, Therapeutic exercise, Education, Equipment issuance DISCHARGE PLAN/DISPOSITION: Subacute Rehab /rosette/ YI COWART Physical Therapist Signed: 09/08/2024 14:39 09/10/2024 ADDENDUM STATUS: COMPLETED Patient discharged to [facility] and will be discharged from acute PT at this time. /rosette/ YI COWART Physical Therapist Signed: 09/10/2024 06:41 YI COWART-[facility]
--- OUTSIDE RECORDS SUMMARY | 2024-09-08 07:10 | XMS_ITS | Encounter Summary ---
Author Name Department of [facility] ([place]) Organization Department of [facility] [place] Address [address] [place] [id number] Care Team Providers Care Public Speaking Coach Name Role Phone YULISSA HENDERSON Primary Care [...] PLAN F Mar 24, 2014 PLAN F [id number] [phone] LUIS MANUEL PERDOMO PATIENT [facility] [place] [facility] PREFERRED PROVIDER ORGANIZAT ION (PPO) [facility] Sep 21, 2012 [id number] LUIS MANUEL PERDOMO PATIENT [employer] ([id number]) PRESCRIPT ION [id number] Sep 21, 2012 [id number] LUIS MANUEL PERDOMO PATIENT MEDICARE (WNR) MEDICARE (M) PART B Sep 21, 2012 PART B [id number] NOEMI PERDOMO PATIENT MEDICARE (WNR) MEDICARE (M) PART A Jan 22, 2011 PART A [id number] NOEMI PERDOMO PATIENT MEDICARE PART D (WNR) MEDICARE (M) PART D Mar 24, 2014 PART D [id number] LUIS MANUEL PERDOMO PATIENT Selected Encounter This section includes the information on record at [place] for the Encounter. Date/Time Encounter Type Encounter Description Reason Provider Source Sep 08, 2024 11:10 AM SELF CARE MNGMENT TRAINING OCCUPATIONAL THERAPY ICD-10-CM M62.81 Muscle weakness (generalized) RASH,MARISSA IHE Encounter Template Text not used by [facility] Assessments - Encounter Diagnoses This section includes the primary and secondary diagnoses documented for the Encounter. Date/Time Primary/Secondary Diagnosis Diagnosis Name Provider Source Sep 08, 2024 02:37 PM PRIMARY Muscle weakness (generalized) RASH,MARISSA [facility] Plan of Treatment: Future Appointments (+ 6 months) and Future Tests (+/- 45 days) The Plan of Treatment section includes future care activities for the patient from all [place] treatmentfacilities. This section includes future appointments and [...] of theEncounter. The data comes from all [place] treatment facilities. Test Date/Time Test Type Test Details Facility Name Sep 13, 2024 01:33 PM Consult Order [facility] Cons Electrical Assembly Supervisor's Choice [facility] Lab Results: +/- 30 days [...] Type Comment Sep 09, 2024 12:16 PM [facility] GLUCOSE-HAND MONITOR CAPILLARY Specimen Type: CAPILLARY Comment: Test performed by: [id number] Meter #: [id number] Ordering Provider: FRANCK TURNER Report Released Date/Time: Sep 09, 2024 12:33 PM Reporting Lab: [address] [address] Performing Lab: [address] [address] GLUCOSE-HAND MONITOR 116 mg/dL H 71-99 Sep 09, 2024 06:07 AM [facility] GLUCOSE-HAND MONITOR CAPILLARY Specime n Type: CAPILLARY Comment: Test performed by: [id number] Meter #: [id number] Ordering Provider: FRANCK TURNER Report Released Date/Time: Sep 09, 2024 08:17 AM Reporting Lab: [address] [address] Performing Lab: [address] [address] GLUCOSE-HAND MONITOR 112 mg/dL H 71-99 Sep 08, 2024 09:13 PM [facility] GLUCOSE-HAND MONITOR CAPILLARY Specime n Type: CAPILLARY Comment: Test performed by: [id number] Meter #: [id number] Ordering Provider: FRANCK TURNER Report Released Date/Time: Sep 08, 2024 09:31 PM Reporting Lab: [address] [address] Performing Lab: [address] [address] GLUCOSE-HAND MONITOR 107 mg/dL H 71-99 Sep 08, 2024 03:49 PM [facility] GLUCOSE-HAND MONITOR CAPILLARY Specime n Type: CAPILLARY Comment: AAMIR RN notified Test performed by: [id number] Meter #: [id number] Ordering Provider: FRANCK TURNER Report Released Date/Time: Sep 08, 2024 04:33 PM Reporting Lab: [address] [address] Performing Lab: [place] [phone] GLUCOSE-HAND MONITOR 162 mg/dL H Sep 08, 2024 11:43 AM [facility] GLUCOSE-HAND MONITOR CAPILLARY Specime n Type: CAPILLARY Comment: AAMIR RN notified Test performed by: [id number] Meter #: [id number] Ordering Provider: FRANCK TURNER Report Released Date/Time: Sep 08, 2024 12:03 PM Reporting Lab: [address] [address] Performing Lab: [address] [address] GLUCOSE-HAND MONITOR 133 mg/dL H Sep 08, 2024 06:13 AM [facility] GLUCOSE-HAND MONITOR CAPILLARY Specime n Type: CAPILLARY Comment: Test performed by: [id number] Meter #: [id number] Ordering Provider: FRANCK TURNER Report Released Date/Time: Sep 08, 2024 06:46 AM Reporting Lab: [address] [address] Performing Lab: [address] [address] GLUCOSE-HAND MONITOR 104 mg/dL H Sep 07, 2024 07:59 PM [facility] GLUCOSE-HAND MONITOR CAPILLARY Specime n Type: CAPILLARY Comment: Test performed by: [id number] Meter #: [id number] Ordering Provider: FRANCK TURNER Report Released Date/Time: Sep 07, 2024 09:05 PM Reporting Lab: [address] [address] Performing Lab: [address] [address] GLUCOSE-HAND MONITOR 107 mg/dL H Sep 07, 2024 04:39 PM [facility] GLUCOSE-HAND MONITOR CAPILLARY Specime n Type: CAPILLARY Comment: Test performed by: [id number] Meter #: [id number] Ordering Provider: FRANCK TURNER Report Released Date/Time: Sep 07, 2024 05:09 PM Reporting Lab: [address] [address] Performing Lab: [address] [address] GLUCOSE-HAND MONITOR 105 mg/dL H -Sep 07, 2024 11:41 AM [facility] GLUCOSE-HAND MONITOR CAPILLARY Specime n Type: CAPILLARY Comment: Test performed by: [id number] Meter #: [id number] Ordering Provider: FRANCK TURNER Report Released Date/Time: Sep 07, 2024 12:41 PM Reporting Lab: [address] [address] Performing Lab: [address] [address] GLUCOSE-HAND MONITOR 144 mg/dL H -Sep 07, 2024 05:56 AM [facility] GLUCOSE-HAND MONITOR CAPILLARY Specime n Type: CAPILLARY Comment: Test performed by: [id number] Meter #: [id number] Ordering Provider: FRANCK TURNER Report Released Date/Time: Sep 07, 2024 06:31 AM Reporting Lab: [address] [address] Performing Lab: [address] [address] GLUCOSE-HAND MONITOR 96 mg/dL -Sep 06, 2024 08:10 PM [facility] GLUCOSE-HAND MONITOR CAPILLARY Specime n Type: CAPILLARY Comment: Test performed by: [id number] Meter #: [id number] Ordering Provider: FRANCK TURNER Report Released Date/Time: Sep 06, 2024 08:52 PM Reporting Lab: [address] [address] Performing Lab: [address] [address] GLUCOSE-HAND MONITOR 124 mg/dL H -Sep 06, 2024 04:27 PM [facility] GLUCOSE-HAND MONITOR CAPILLARY Specime n Type: CAPILLARY Comment: Test performed by: [id number] Meter #: [id number] Ordering Provider: FRANCK TURNER Report Released Date/Time: Sep 06, 2024 05:15 PM Reporting Lab: [address] [address] Performing Lab: [address] [address] GLUCOSE-HAND MONITOR 107 mg/dL H Sep 06, 2024 12:12 PM [facility] GLUCOSE-HAND MONITOR CAPILLARY Specime n Type: CAPILLARY Comment: Test performed by: [id number] Meter #: [id number] Ordering Provider: FRANCK TURNER Report Released Date/Time: Sep 06, 2024 12:29 PM Reporting Lab: [address] [address] Performing Lab: [place] [phone] GLUCOSE-HAND MONITOR 181 mg/dL H Sep 06, 2024 06:13 AM [facility] GLUCOSE-HAND MONITOR CAPILLARY Specime n Type: CAPILLARY Comment: Test performed by: [id number] Meter #: [id number] Ordering Provider: FRANCK TURNER Report Released Date/Time: Sep 06, 2024 06:36 AM Reporting Lab: [address] [address] Performing Lab: [address] [address] GLUCOSE-HAND MONITOR 102 mg/dL H Sep 05, 2024 08:47 PM [facility] GLUCOSE-HAND MONITOR CAPILLARY Specime n Type: CAPILLARY Comment: Test performed by: [id number] Meter #: [id number] Ordering Provider: FRANCK TURNER Report Released Date/Time: Sep 06, 2024 02:13 AM Reporting Lab: [address] [address] Performing Lab: [address] [address] GLUCOSE-HAND MONITOR 103 mg/dL H Sep 05, 2024 04:40 PM [facility] GLUCOSE-HAND MONITOR CAPILLARY Specime n Type: CAPILLARY Comment: AAMIR RN notified Test performed by: [id number] Meter #: [id number] Ordering Provider: FRANCK TURNER Report Released Date/Time: Sep 05, 2024 05:11 PM Reporting Lab: [id number] [address] Performing Lab: [address] [address] GLUCOSE-HAND MONITOR 113 mg/dL H -Sep 05, 2024 12:06 PM [facility] GLUCOSE-HAND MONITOR CAPILLARY Specime n Type: CAPILLARY Comment: Test performed by: [id number] Meter #: [id number] Ordering Provider: FRANCK TURNER Report Released Date/Time: Sep 05, 2024 12:23 PM Reporting Lab: [address] [address] Performing Lab: [address] [address] GLUCOSE-HAND MONITOR 115 mg/dL H -Sep 05, 2024 06:26 AM [facility] GLUCOSE-HAND MONITOR CAPILLARY Specime n Type: CAPILLARY Comment: AAMIR Correction Dose Test performed by: [id number] Meter #: [id number] Ordering Provider: FRANCK TURNER Report Released Date/Time: Sep 05, 2024 06:43 AM Reporting Lab: [address] [address] Performing Lab: [address] [address] GLUCOSE-HAND MONITOR 111 mg/dL H -Sep 04, 2024 08:59 PM [facility] GLUCOSE-HAND MONITOR CAPILLARY Specime n Type: CAPILLARY Comment: AAMIR RN notified Test performed by: [id number] Meter #: [id number] Ordering Provider: FRANCK TURNER Report Released Date/Time: Sep 04, 2024 09:36 PM Reporting Lab: [address] [address] Performing Lab: [address] [address] GLUCOSE-HAND MONITOR 123 mg/dL H -Sep 04, 2024 04:41 PM [facility] GLUCOSE-HAND MONITOR CAPILLARY Specime n Type: CAPILLARY Comment: AAMIR RN notified Test performed by: [id number] Meter #: [id number] Ordering Provider: FRANCK TURNER Report Released Date/Time: Sep 04, 2024 05:03 PM Reporting Lab: [place] [phone] Performing Lab: [place] [phone] GLUCOSE-HAND MONITOR 118 mg/dL H Sep 04, 2024 12:36 PM [facility] GLUCOSE-HAND MONITOR CAPILLARY Specime n Type: CAPILLARY Comment: AAMIR RN notified Test performed by: [id number] Meter #: [id number] Ordering Provider: FRANCK TURNER Report Released Date/Time: Sep 04, 2024 12:53 PM Reporting Lab: [place] [phone] Performing Lab: [place] [phone] GLUCOSE-HAND MONITOR 129 mg/dL H Sep 04, 2024 12:03 PM [facility] RESPIRATORY VIRUS PANEL (BIOFIRE) NASOPHARYN X Specimen Type: NASOPHARYNX Comment: ~For Test: RESPIRATORY VIRUS PANEL (BIOFIRE) ~ORDER READ BACK TO: FRANCK TURNER 09/04/24@11:30 Ordering Provider: FRANCK TURNER Report Released Date/Time: Sep 04, 2024 11:33 AM Reporting Lab: [place] [address] Performing Lab: [place] [phone] ADENOVIRUS (BIOFIRE) Not Detected -Not D etected [...] Detected Sep 04, 2024 06:55 AM [facility] MAGNESIUM PLASMA Specimen Type: PLASM [...] Sep 03, 2024 11:10 AM Reporting Lab: [address] [address] Performing Lab: [address] [address] MAGNESIUM 1.8 mg/dL 1.6-2.6 Sep 04, 2024 [...] Sep 03, 2024 11:10 AM Reporting Lab: [address] [address] Performing Lab: [place] [phone] CREATININE 0.75 mg/dL 0.72-1.25 UREA NITROGEN 13 [...] n Type: CAPILLARY Comment: Test performed by: [id number] Meter #: [id number] Ordering Provider: FRANCK TURNER Report Released Date/Time: Sep 04, 2024 06:28 AM Reporting Lab: [address] [address] Performing Lab: [address] [address] GLUCOSE-HAND MONITOR 114 mg/dL H -Sep 03, 2024 05:19 PM [facility] GLUCOSE-HAND MONITOR CAPILLARY Specime n Type: CAPILLARY Comment: Test performed by: [id number] Meter #: [id number] Ordering Provider: FRANCK TURNER Report Released Date/Time: Sep 03, 2024 05:37 PM Reporting Lab: [place] [phone] Performing Lab: [place] [phone] GLUCOSE-HAND MONITOR 124 mg/dL H 71-99 Sep 03, 2024 04:41 PM [facility] GLUCOSE-HAND MONITOR CAPILLARY Specime n Type: CAPILLARY Comment: Test performed by: [id number] Meter #: [id number] Ordering Provider: FRANCK TURNER Report Released Date/Time: Sep 03, 2024 06:09 PM Reporting Lab: [address] [address] Performing Lab: [address] [address] GLUCOSE-HAND MONITOR 112 mg/dL H 71-99 Sep 03, 2024 01:35 PM [facility] URINE LYTES URINE Specimen Type : URINE Comment: ~Altered mental status with no identifiable cause Ordering Provider: FRANCK TURNER Report Released Date/Time: Sep 02, 2024 04:44 PM Reporting Lab: [address] [address] Performing Lab: [address] [address] SODIUM 130 mmol/L POTASSIUM 47.6 mmol/L CHLORIDE 137 mmol/L Sep 03, 2024 01:35 PM [facility] CREATININE URINE Specimen Type: URINE Comment: ~Altered mental status with no identifiable cause Ordering Provider: FRANCK TURNER Report Released Date/Time: Sep 02, 2024 04:44 PM Reporting Lab: [address] [address] Performing Lab: [address] [address] CREATININE 150.9 mg/dL Sep 03, 2024 01:35 PM [facility] OSMOLALITY URINE Specimen Type: URINE Comment: ~Altered mental status with no identifiable cause Ordering Provider: FRANCK TURNER Report Released Date/Time: Sep 02, 2024 04:44 PM Reporting Lab: [address] [address] Performing Lab: [address] [address] OSMOLALITY 522 mosm/kg 38-1400 Sep 03, 2024 01:35 PM [facility] UREA NITROGEN URINE Specimen Type : URINE Comment: ~Altered mental status with no identifiable cause Ordering Provider: FRANCK TURNER Report Released Date/Time: Sep 02, 2024 04:44 PM Reporting Lab: [address] [address] Performing Lab: [address] [address] UREA NITROGEN 320 mg/dL Sep 03, 2024 01:35 PM [facility] URINALYSIS WITH REFLEX TO CULTURE URINE Specimen Type: URINE Comment: ~Altered mental status with no identifiable cause Ordering Provider: FRANCK TURNER Report Released Date/Time: Sep 02, 2024 04:44 PM Reporting Lab: [place] [phone] Performing Lab: [address] [address] URINE COLOR Yellow Colorless-Yellow APPEARANCE CLOUDY H [...] H 0-28 Sep 03, 2024 11:58 AM [facility] GLUCOSE-HAND MONITOR CAPILLARY Specime n Type: CAPILLARY Comment: AAMIR RN notified Test performed by: [id number] Meter #: [id number] Ordering Provider: FRANCK TURNER Report Released Date/Time: Sep 03, 2024 12:15 PM Reporting Lab: [address] [address] Performing Lab: [address] [address] GLUCOSE-HAND MONITOR 135 mg/dL H 71-99 Sep 03, 2024 07:09 AM [facility] GLUCOSE-HAND MONITOR CAPILLARY Specime n Type: CAPILLARY Comment: Test performed by: [id number] Meter #: [id number] Ordering Provider: FRANCK TURNER Report Released Date/Time: Sep 03, 2024 07:26 AM Reporting Lab: [facility] [address] [place] [address] Performing Lab: [address] [address] GLUCOSE-HAND MONITOR 120 mg/dL H 71-99 Sep 03, 2024 07:05 AM [facility] [...] Sep 02, 2024 04:29 PM Reporting Lab: [address] [address] Performing Lab: [address] [address] CREATININE 0.82 mg/dL 0.72-1.25 UREA NITROGEN 12 [...] Sep 02, 2024 04:29 PM Reporting Lab: [address] [address] Performing Lab: [address] [address] WBC 6.9 10*3/uL 5.0-10.0 RBC 3.48 10*6/uL [...] Sep 02, 2024 04:29 PM Reporting Lab: [place] [id number] [facility] [address] Performing Lab: [address] [address] MAGNESIUM 1.7 mg/dL 1.6-2.6 Sep 03, 2024 07:05 AM [facility] GLYCOHEMOGLOBIN BLOOD Specimen Type: BLOOD Comment: Prediabetes: 5.7%-6.4% Diabetes: >= 6.5% [facility] guidelines for A1c interpretation: [...] 8.73 and 9.27. Ref: https://ngsp.org/CAPdata.asp. The in-house [employer] D-100 analyzer has a historical CV <= 2%. Contact the laboratory for further performance characteristics of this assay. Ordering Provider: FRANCK TURNER Report Released Date/Time: Sep 02, 2024 04:29 PM Reporting Lab: [place] [phone] Performing Lab: [place] [phone] GLYCOHEMOGLOBIN 5.6 4.4-5.6 Sep 03, 2024 07:05 AM [facility] OSMOLALITY SERUM Specimen Type: SERUM No comment entered. Ordering Provider: FRANCK TURNER Report Released Date/Time: Sep 02, 2024 04:44 PM Reporting Lab: [address] [address] Performing Lab: [address] [address] OSMOLALITY 271 mosm/kg L 280-300 Sep 02, 2024 08:15 PM [facility] GLUCOSE-HAND MONITOR CAPILLARY Specime n Type: CAPILLARY Comment: AAMIR DEXTER notified Test performed by: [id number] Meter #: [id number] Ordering Provider: FRANCK TURNER Report Released Date/Time: Sep 02, 2024 08:57 PM Reporting Lab: [address] [address] Performing Lab: [address] [address] GLUCOSE-HAND MONITOR 126 mg/dL H 71-99 Sep [...] Sep 02, 2024 05:12 PM Reporting Lab: [place] [phone] Performing Lab: [place] [phone] MRSA SURVL NARES DNA Negative Negative Sep 02, 2024 05:36 PM [facility] GLUCOSE-HAND MONITOR CAPILLARY Specime n Type: CAPILLARY Comment: Test performed by: [id number] Meter #: [id number] Ordering Provider: FRANCK TURNER Report Released Date/Time: Sep 02, 2024 05:53 PM Reporting Lab: [address] [address] Performing Lab: [place] [phone] GLUCOSE-HAND MONITOR 127 mg/dL H 71-99 Aug 29, 2024 10:04 PM [facility] URINALYSIS WITH REFLEX TO CULTURE URINE Specimen Type: URINE Comment: ~For Test: URINALYSIS WITH REFLEX TO CULTURE ~REORDER Ordering Provider: FELISA COLE Report Released Date/Time: Aug 29, 2024 09:36 PM Reporting Lab: [address] [address] Performing Lab: [address] [address] URINE COLOR Yellow Colorless-Yellow APPEARANCE Clear Clear [...] I information resource can be reached in [facility] in the Tools menu, [...] Aug 29, 2024 07:55 PM Reporting Lab: [address] [address] Performing Lab: [address] [address] HIGH SENSITIVITY TROPONIN I 7 4-35 Aug 29, 2024 08:32 PM [facility] CBC/PLT BLOOD Specimen Type: BLOOD No comment entered. Ordering Provider: FELISA COLE Report Released Date/Time: Aug 29, 2024 07:55 PM Reporting Lab: [address] [address] Performing Lab: [facility] [address] [facility] [address] WBC 11.2 10*3/uL H 5.0-10.0 RBC 3.97 [...] Aug 29, 2024 07:55 PM Reporting Lab: [address] [address] Performing Lab: [address] [address] CREATININE 0.85 mg/dL 0.72-1.25 UREA NITROGEN 15 [...] 18 /min 96 % 0 [place] Sep 08, 2024 09:03 PM 0 [place] Sep 08, 2024 03:46 PM 97.7 F 76 /min 148/70 mm[Hg] 16 /min 96 % 0 [place] Sep 08, 2024 11:42 AM 97.4 F 67 /min 125/69 mm[Hg] 92 % [place] Sep 08, 2024 09:30 AM [facility] Advance Directives: All historical and current [...] Mar 08, 2024 ADVANCE DIRECTIVE DISCUSSION [facility] Radiology Reports: +/- 30 days of [...] BRAIN W & W/O: LUIS MANUEL PERDOMO [id number] -1945 M Exm Date: SEP 06, 2024@13:40 Req Phys: FRANCK TURNERFRANNY Pat Loc: 5-MED/TEL/09-06-2024@19:09 Img Loc: [facility] Service: [place] [address] (Case [id number] COMPLETE) MRI BRAIN W & W/O (MRI Detailed) CPT:33660 Contrast Media : Gadolinium Reason for Study: SEE CLINICAL HISTORY Pharmaceutical: GADOTERIDOL 279.3MG/ML 20ML INJ, 19ml Clinical History: MRI Screening (Required): IMPLANTED DEVICE DOCUMENTATION IMPLANTED DEVICE DOCUMENTATION NOT FOUND Does the [place] have any Cardiac Implants? None Does the [place] have any implanted stimulators? None Does the have cochlear implants? No Does the [place] have Cerebral aneurysm clip(s)? I don't know Does the [place] have any shrapnel? I don't know If [...] 06, 2024 Date Verified: SEP 06, 2024 Tacking Stitch Remover E-Sig: Report: MRI brain without and with [...] Staff: ARCENIO LEYVA, Staff Radiologist Verified by marketing information coordinator for ARCENIO LEYVA /ARCENIO [facility] Sep 06, 2024 01:40 PM MRI C SPINE W & W/ O CONTRAST(FURTHER SEQUENCES): LUIS MANUEL PERDOMO [id number] -1945 M Exm Date: SEP 06, 2024@13:40 Req Phys: FRANCK TURNER [facility] Loc: 5-MED/TEL/09-07-2024@06:42 Img Loc: [facility] Service: [facility] [place] [id number] (Case [id number] COMPLETE) MRI C SPINE W & W/O CONTRAST(FURT(MRI Detailed) CPT:19476 Contrast Media : Gadolinium Reason for Study: SEE CLINICAL HISTORY Pharmaceutical: GADOTERIDOL 279.3MG/ML 20ML INJ, 19ml Clinical History: STATUS OF PLAIN FILMS:Not performed (Provide justification for MR W/O prior plain films below.) MRI for MS MRI Screening (Required): IMPLANTED DEVICE DOCUMENTATION IMPLANTED DEVICE DOCUMENTATION NOT FOUND Does the have any Cardiac Implants? None Does the have any implanted stimulators? None Does the [place] have cochlear implants? No Does the [place] have Cerebral aneurysm clip(s)? I don't know Does the [place] have any shrapnel? I don't know If [...] 07, 2024 Date Verified: SEP 07, 2024 Tacking Stitch Remover E-Sig: Report: EXAMINATION: MRI OF THE CERVICAL [...] Interpreting Staff: HUANG TAI, Radiologist Verified by marketing information coordinator for HUANG TAI /UHANG [place] Sep 03, 2024 10:45 AM CHEST SINGLE(1) EW: LUIS MANUEL PERDOMO [id number] -1945 M Exm Date: SEP 03, 2024@10:45 Req Phys: FRANCK TURNER Pat Loc: 5-MED/TEL/09-03-2024@10:56 Img Loc: [facility] RADIOLOGY Service: [place] [address] (Case [id number] COMPLETE)CHEST SINGLE(1) VIEW (RAD Detailed) CPT:93625 Proc Modifiers : PORTABLE EXAM Reason for Study: Eval volume status Clinical History: Report Status: Verified Date Reported: SEP 03, 2024 Date Verified: SEP 03, 2024 Tacking Stitch Remover E-Sig: Report: EXAMINATION: SINGLE VIEW CHEST CLINICAL [...] Interpreting Staff: HUANG TAI, Radiologist Verified by marketing information coordinator for HUANG TAI /HUANG [place]-Sav [facility] Aug 29, 2024 08:[address] HEAD W/O CONT: LUIS MANUEL PERDOMO [id number] -1945 M Exm Date: AUG 29, 2024@20:28 Req Phys: FELISA COLE Loc: ED/4P-12A (Req'g Loc) Img Loc: CT SCAN Service: [place] [address] (Case [id number] COMPLETE) CT HEAD W/O CONT (CT Detailed) CPT:77381 Reason for Study: SEE CLINICAL HISTORY Clinical History: REASON FOR SEND OUT: ATTENDING PHYSICIAN NAME: New transient neurological s/s - suspected TIA HISTORY/REASON FOR EXAM: confusion Report Status: Verified Date Reported: AUG 29, 2024 Date Verified: AUG 29, 2024 Tacking Stitch Remover E-Sig: Report: HISTORY confusion COMPARISON No prior [...] Staff: ABDIRAHMAN CROW, Staff Physician Verified by marketing information coordinator for ABDIRAHMAN CROW /[facility] Pathology [...] [facility] [CLIA# [id number]] [address] [place] [id number] Accession [UID]: [id number] [[id number]] Received: Sep 03, 2024@14:02 Collection sample: URINE, [...] [facility] [CLIA# [id number]] [address] [place], [place] [id number] MAGDY CALABRESE [facility] Sep 02, 2024 06:00 PM LR MICROBIOLOGY RE PORT: Reporting Lab: [facility] [IA# [id number]] [address] [place], [place] [id number] Accession [UID]: [id number] [[id number]] Received: Sep 02, 2024@18:07 Collection sample: BLD CULTURE BOTTLES Collection date: Sep 02, 2024 18:00 Site/Specimen: BLOOD Provider: FRANCK TURNER Comment on specimen: L HAND Test(s) ordered: CULTURE, BLOOD................ completed: Sep 08, 2024 * BACTERIOLOGY FINAL REPORT => Sep 08, 2024 08:[address] [facility] CODE: [id number] Bacteriology Remark(s): Blood culture status=NO GROWTH (unless notified otherwise) 09/03/2024 AEROBIC: NO GROWTH ANAEROBIC: NO GROWTH =--=--=--=--=--=--=--=--=--=-- =--=--=--=--=--=--=--=--=--=-- =--=--=--=--=--=-- Performing Laboratory: Bacteriology Report Performed By: [facility] [CLIA# [id number]] [address] [place] [id number] MAGDY CALABRESE [facility] Aug 29, 2024 10:18 PM LR MICROBIOLOGY RE PORT: Reporting Lab: [facility] [IA# [id number]] [address] [address] [place], [place] [id number] Accession [UID]: [id number] [[id number]] Received: Aug 29, 2024@22:18 Collection sample: URINE, CLEAN CATCH Collection date: Aug 29, 2024 22:18 Site/Specimen: URINE Provider: FELISA COLE Test(s) ordered: CULTURE, URINE................ completed: Aug 31, 2024 09:51 * BACTERIOLOGY FINAL REPORT => Aug 31, 2024 09:51 TECH CODE: [id number] Bacteriology Remark(s): NO GROWTH 08/30/2024 <10,000 CFU/ML. 08/31/2024 =--=--=--=--=--=--=--=--=--=-- =--=--=--=--=--=--=--=--=--=-- =--=--=--=--=--=-- Performing Laboratory: Bacteriology Report Performed By: [facility] [CLIA# [id number]] [address] [place] [address] [facility] Encounter Notes: All associated encounter notes This section contains the clinical notes associated to the Encounter. Date/Time Encounter Note(s) Provider Source Sep 08, 2024 11:10 AM OCCUPATIONAL MEDIC INE NOTE: LOCAL TITLE: OCCUPATIONAL THERAPY NOTE STANDARD TITLE: OCCUPATIONAL MEDICINE NOTE DATE OF NOTE: SEP 08, 2024@11:10 ENTRY DATE: SEP 08, 2024@14:32:25 AUTHOR: MARISSA HERRERA EXP COSIGNER: URGENCY: STATUS: COMPLETED Type: OT Tx Diagnosis: Suspected HF Reason for referral: OT eval and Recs Precautions: none Referring team: orange Time: 14 minutes (21082- 14 MINS) Social: Vet lives w/spouse in 2 [...] nursing ok'd, supine in bed upon arrival. PT and Spouse present. Pt c/o and pain: none O: Lines: Gisselle Oriented to: Person, Place, Time Command followin% BUE AROM: WFL Strength: BUE WFL FMC/coordination: WFL Core Drill Operator Strength:WFL Sensation: WFL Other: Sitting Balance (ADL):G Standing Balance (ADL):F- Bed Mobility: SBA ADLS As Follows: Feeding - s/u Grooming - s/u, chair level UBD - MIN A *sim LBD - MAX A *per observation Bathing(UB/LB)-MAX A *per observation Toileting- MAX A *per observation Toilet Transfer - deferred, unsafe to perform Tub/Shower Transfer-deferred, unsafe to perform Tx/Intervention: - supine<>sit: SBA - EOB static sitting 5'; SBA - sit to stand to RW: MIN A X 2 - bed<>chair w/RW: MIN A X 2 Equipment provided: TBD A: Vet is pleasant and cooperative with tx. He demonstrated G BUE function and sitting balance. Improvement w/bed<>chair transfer, requiring MIN A X2; additionally did not present w/symptoms that were noted previous 2 sessions. Pt left at end of session: Seated in b/s chair, call light and side table in reach.Educated to call for assist w/ any needs he may have. Chair alarm and Sling lift in place. 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
--- OUTSIDE RECORDS SUMMARY | 2024-09-08 10:09 | XMS_ITS | Encounter Summary ---
Author Name [facility] [place] [facility] [place] [facility] [place] Address [address] [place] [address] Care Team Providers Care Medical Safety Director Name Role Phone YULISSA HENDERSON Primary [...] PLAN F Mar 24, 2014 PLAN F [id number] LUIS MANUEL PERDOMO PATIENT [facility] BLUECARD PREFERRED PROVIDER ORGANIZAT ION (PPO) [facility] Sep 21, 2012 [id number] LUIS MANUEL PERDOMO PATIENT [employer] [facility] ([id number]) PRESCRIPT ION WL3A Sep 21, 2012 [id number] [phone] LUIS MANUEL PERDOMO PATIENT MEDICARE (WNR) MEDICARE (M) PART B Sep 21, 2012 PART B [id number] NOEMI PERDOMO PATIENT MEDICARE (WNR) MEDICARE (M) PART A Jan 22, 2011 PART A [id number] NOEMI PERDOMO PATIENT MEDICARE PART D (WNR) MEDICARE (M) PART D Mar 24, 2014 PART D [id number] LUIS MANUEL PERDOMO PATIENT Selected Encounter This section includes the information on [place] at [place] for the Encounter. Date/Time Encounter Type Encounter Description Reason Provider Source Sep 08, 2024 02:09 PM [facility] IP/OBS MODERATE 35 GENERAL [...] 08:00 AM AMBULATORY - NONE [place] [facility] Sep 30, 2024 01:30 PM AMBULATORY - SURGERY [place] [facility] Active, Pending, and Scheduled Orders [...] [facility] Cons Foreign Food Cook Specialty's Choice [facility] Lab Results: +/- 30 days [...] Type Comment Sep 09, 2024 12:16 PM [facility] GLUCOSE-HAND MONITOR CAPILLARY Specimen Type: CAPILLARY Comment: Test performed by: [id number] Meter #: [id number] Ordering Provider: FRANCK TURNER Report Released Date/Time: Sep 09, 2024 12:33 PM Reporting Lab: [address] [address] Performing Lab: [address] [address] GLUCOSE-HAND MONITOR 116 mg/dL H Sep 09, 2024 06:07 AM [facility] GLUCOSE-HAND MONITOR CAPILLARY Specime n Type: CAPILLARY Comment: Test performed by: [id number] Meter #: [id number] Ordering Provider: FRANCK TURNER Report Released Date/Time: Sep 09, 2024 08:17 AM Reporting Lab: [address] [address] Performing Lab: [address] [address] GLUCOSE-HAND MONITOR 112 mg/dL H Sep 08, 2024 09:13 PM [facility] GLUCOSE-HAND MONITOR CAPILLARY Specime n Type: CAPILLARY Comment: Test performed by: [id number] Meter #: [id number] Ordering Provider: FRANCK TURNER Report Released Date/Time: Sep 08, 2024 09:31 PM Reporting Lab: [address] [address] Performing Lab: [address] [address] GLUCOSE-HAND MONITOR 107 mg/dL H Sep 08, 2024 03:49 PM [facility] GLUCOSE-HAND MONITOR CAPILLARY Specime n Type: CAPILLARY Comment: AAMIR RN notified Test performed by: [id number] Meter #: [id number] Ordering Provider: FRANCK TURNER Report Released Date/Time: Sep 08, 2024 04:33 PM Reporting Lab: [address] [address] Performing Lab: [address] [address] GLUCOSE-HAND MONITOR 162 mg/dL H Sep 08, 2024 11:43 AM [facility] GLUCOSE-HAND MONITOR CAPILLARY Specime n Type: CAPILLARY Comment: AAMIR RN notified Test performed by: [id number] Meter #: [id number] Ordering Provider: FRANCK TURNER Report Released Date/Time: Sep 08, 2024 12:03 PM Reporting Lab: [place] [phone] Performing Lab: [address] [address] GLUCOSE-HAND MONITOR 133 mg/dL H Sep 08, 2024 06:13 AM [facility] GLUCOSE-HAND MONITOR CAPILLARY Specime n Type: CAPILLARY Comment: Test performed by: [id number] Meter #: [id number] Ordering Provider: FRANCK TURNER Report Released Date/Time: Sep 08, 2024 06:46 AM Reporting Lab: [place] [phone] Performing Lab: [address] [address] GLUCOSE-HAND MONITOR 104 mg/dL H Sep 07, 2024 07:59 PM [facility] GLUCOSE-HAND MONITOR CAPILLARY Specime n Type: CAPILLARY Comment: Test performed by: [id number] Meter #: [id number] Ordering Provider: FRANCK TURNER Report Released Date/Time: Sep 07, 2024 09:05 PM Reporting Lab: [place] [phone] Performing Lab: [address] [address] GLUCOSE-HAND MONITOR 107 mg/dL H Sep 07, 2024 04:39 PM [facility] GLUCOSE-HAND MONITOR CAPILLARY Specime n Type: CAPILLARY Comment: Test performed by: [id number] Meter #: [id number] Ordering Provider: FRANCK TURNER Report Released Date/Time: Sep 07, 2024 05:09 PM Reporting Lab: [address] [address] Performing Lab: [address] [address] GLUCOSE-HAND MONITOR 105 mg/dL H Sep 07, 2024 11:41 AM [facility] GLUCOSE-HAND MONITOR CAPILLARY Specime n Type: CAPILLARY Comment: Test performed by: [id number] Meter #: [id number] Ordering Provider: FRANCK TURNER Report Released Date/Time: Sep 07, 2024 12:41 PM Reporting Lab: [place] [phone] Performing Lab: [place] [phone] GLUCOSE-HAND MONITOR 144 mg/dL H Sep 07, 2024 05:56 AM [facility] GLUCOSE-HAND MONITOR CAPILLARY Specime n Type: CAPILLARY Comment: Test performed by: [id number] Meter #: [id number] Ordering Provider: FRANCK TURNER Report Released Date/Time: Sep 07, 2024 06:31 AM Reporting Lab: [place] [phone] Performing Lab: [place] [phone] GLUCOSE-HAND MONITOR 96 mg/dL Sep 06, 2024 08:10 PM [facility] GLUCOSE-HAND MONITOR CAPILLARY Specime n Type: CAPILLARY Comment: Test performed by: [id number] Meter #: [id number] Ordering Provider: FRANCK TURNER Report Released Date/Time: Sep 06, 2024 08:52 PM Reporting Lab: [place] [phone] Performing Lab: [place] [phone] GLUCOSE-HAND MONITOR 124 mg/dL H Sep 06, 2024 04:27 PM [facility] GLUCOSE-HAND MONITOR CAPILLARY Specime n Type: CAPILLARY Comment: Test performed by: [id number] Meter #: [id number] Ordering Provider: FRANCK TURNER Report Released Date/Time: Sep 06, 2024 05:15 PM Reporting Lab: [place] [phone] Performing Lab: [place] [phone] GLUCOSE-HAND MONITOR 107 mg/dL H Sep 06, 2024 12:12 PM [facility] GLUCOSE-HAND MONITOR CAPILLARY Specime n Type: CAPILLARY Comment: Test performed by: [id number] Meter #: [id number] Ordering Provider: FRANCK TURNER Report Released Date/Time: Sep 06, 2024 12:29 PM Reporting Lab: [address] [address] Performing Lab: [address] [address] GLUCOSE-HAND MONITOR 181 mg/dL H Sep 06, 2024 06:13 AM [facility] GLUCOSE-HAND MONITOR CAPILLARY Specime n Type: CAPILLARY Comment: Test performed by: [id number] Meter #: [id number] Ordering Provider: FRANCK TURNER Report Released Date/Time: Sep 06, 2024 06:36 AM Reporting Lab: [place] [phone] Performing Lab: [place] [phone] GLUCOSE-HAND MONITOR 102 mg/dL H Sep 05, 2024 08:47 PM [facility] GLUCOSE-HAND MONITOR CAPILLARY Specime n Type: CAPILLARY Comment: Test performed by: [id number] Meter #: [id number] Ordering Provider: FRANCK TURNER Report Released Date/Time: Sep 06, 2024 02:13 AM Reporting Lab: [address] [address] Performing Lab: [address] [address] GLUCOSE-HAND MONITOR 103 mg/dL H Sep 05, 2024 04:40 PM [facility] GLUCOSE-HAND MONITOR CAPILLARY Specime n Type: CAPILLARY Comment: AAMIR RN notified Test performed by: [id number] Meter #: [id number] Ordering Provider: FRANCK TURNER Report Released Date/Time: Sep 05, 2024 05:11 PM Reporting Lab: [address] [address] Performing Lab: [address] [address] GLUCOSE-HAND MONITOR 113 mg/dL H Sep 05, 2024 12:06 PM [facility] GLUCOSE-HAND MONITOR CAPILLARY Specime n Type: CAPILLARY Comment: Test performed by: [id number] Meter #: [id number] Ordering Provider: FRANCK TUNRER Report Released Date/Time: Sep 05, 2024 12:23 PM Reporting Lab: [address] [address] Performing Lab: [address] [address] GLUCOSE-HAND MONITOR 115 mg/dL H -Sep 05, 2024 06:26 AM [facility] GLUCOSE-HAND MONITOR CAPILLARY Specime n Type: CAPILLARY Comment: AAMIR Correction Dose Test performed by: [id number] Meter #: [id number] Ordering Provider: FRANCK TURNER Report Released Date/Time: Sep 05, 2024 06:43 AM Reporting Lab: [address] [address] Performing Lab: [address] GLUCOSE-HAND MONITOR 111 mg/dL H Sep 04, 2024 08:59 PM [facility] GLUCOSE-HAND MONITOR CAPILLARY Specime n Type: CAPILLARY Comment: AAMIR RN notified Test performed by: [id number] Meter #: [id number] Ordering Provider: FRANCK TURNER Report Released Date/Time: Sep 04, 2024 09:36 PM Reporting Lab: [address] [address] Performing Lab: [address] [address] GLUCOSE-HAND MONITOR 123 mg/dL H Sep 04, 2024 04:41 PM [facility] GLUCOSE-HAND MONITOR CAPILLARY Specime n Type: CAPILLARY Comment: AAMIR RN notified Test performed by: [id number] Meter #: [id number] Ordering Provider: FRANCK TURNER Report Released Date/Time: Sep 04, 2024 05:03 PM Reporting Lab: [address] [address] Performing Lab: [address] [address] GLUCOSE-HAND MONITOR 118 mg/dL H -Sep 04, 2024 12:36 PM [facility] GLUCOSE-HAND MONITOR CAPILLARY Specime n Type: CAPILLARY Comment: AAMIR RN notified Test performed by: [id number] Meter #: [id number] Ordering Provider: FRANCK TURNER Report Released Date/Time: Sep 04, 2024 12:53 PM Reporting Lab: [place] [phone] Performing Lab: [place] [address] GLUCOSE-HAND MONITOR 129 mg/dL H -Sep 04, 2024 12:03 PM [facility] RESPIRATORY VIRUS PANEL (BIOFIRE) NASOPHARYN X Specimen Type: NASOPHARYNX Comment: ~For Test: RESPIRATORY VIRUS PANEL (BIOFIRE) ~ORDER READ BACK TO: FRANCK TURNER 09/04/24@11:30 Ordering Provider: FRANCK TURNER Report Released Date/Time: Sep 04, 2024 11:33 AM Reporting Lab: [place] [phone] Performing Lab: [place] [phone] ADENOVIRUS (BIOFIRE) Not Detected -Not D etected [...] -Not Detected Sep 04, 2024 06:55 AM [facility] MAGNESIUM PLASMA Specimen Type: [...] Sep 03, 2024 11:10 AM Reporting Lab: [place] [id number] [facility] [address] Performing Lab: [address] [address] MAGNESIUM 1.8 mg/dL 1.6-2.6 Sep 04, 2024 [...] Sep 03, 2024 11:10 AM Reporting Lab: [address] [address] Performing Lab: [address] [address] CREATININE 0.75 mg/dL 0.72-1.25 UREA NITROGEN 13 [...] n Type: CAPILLARY Comment: Test performed by: [id number] Meter #: [id number] Ordering Provider: FRANCK TURNER Report Released Date/Time: Sep 04, 2024 06:28 AM Reporting Lab: [address] [address] Performing Lab: [address] [address] GLUCOSE-HAND MONITOR 114 mg/dL H 71-99 Sep 03, 2024 05:19 PM [facility] GLUCOSE-HAND MONITOR CAPILLARY Specime n Type: CAPILLARY Comment: Test performed by: [id number] Meter #: [id number] Ordering Provider: FRANCK TURNER Report Released Date/Time: Sep 03, 2024 05:37 PM Reporting Lab: [address] [address] Performing Lab: [address] [address] GLUCOSE-HAND MONITOR 124 mg/dL H 71-99 Sep 03, 2024 04:41 PM [facility] GLUCOSE-HAND MONITOR CAPILLARY Specime n Type: CAPILLARY Comment: Test performed by: [id number] Meter #: [id number] Ordering Provider: FRANCK TURNER Report Released Date/Time: Sep 03, 2024 06:09 PM Reporting Lab: [address] [address] Performing Lab: [address] [address] GLUCOSE-HAND MONITOR 112 mg/dL H 71-99 Sep 03, 2024 01:35 PM [facility] URINE LYTES URINE Specimen Type : URINE Comment: ~Altered mental status with no identifiable cause Ordering Provider: FRANCK TURNER Report Released Date/Time: Sep 02, 2024 04:44 PM Reporting Lab: [address] [address] Performing Lab: [address] [address] SODIUM 130 mmol/L POTASSIUM 47.6 mmol/L CHLORIDE 137 mmol/L Sep 03, 2024 01:35 PM [facility] CREATININE URINE Specimen Type: URINE Comment: ~Altered mental status with no identifiable cause Ordering Provider: FRANCK TURNER Report Released Date/Time: Sep 02, 2024 04:44 PM Reporting Lab: [address] [address] Performing Lab: [address] [address] CREATININE 150.9 mg/dL Sep 03, 2024 01:35 PM [facility] UREA NITROGEN URINE Specimen Type : URINE Comment: ~Altered mental status with no identifiable cause Ordering Provider: FRANCK TURNER Report Released Date/Time: Sep 02, 2024 04:44 PM Reporting Lab: [address] [address] Performing Lab: [address] [address] UREA NITROGEN 320 mg/dL Sep 03, 2024 01:35 PM [facility] URINALYSIS WITH REFLEX TO CULTURE URINE Specimen Type: URINE Comment: ~Altered mental status with no identifiable cause Ordering Provider: FRANCK TURNER Report Released Date/Time: Sep 02, 2024 04:44 PM Reporting Lab: [address] [address] Performing Lab: [address] [address] URINE COLOR Yellow Colorless-Yellow APPEARANCE CLOUDY H [...] H 0-28 Sep 03, 2024 01:35 PM [facility] OSMOLALITY URINE Specimen Type: URINE Comment: ~Altered mental status with no identifiable cause Ordering Provider: FRANCK TURNER Report Released Date/Time: Sep 02, 2024 04:44 PM Reporting Lab: [place] [phone] Performing Lab: [place] [phone] OSMOLALITY 522 mosm/kg 38-1400 Sep 03, 2024 11:58 AM [facility] GLUCOSE-HAND MONITOR CAPILLARY Specime n Type: CAPILLARY Comment: AAMIR RN notified Test performed by: [id number] Meter #: [id number] Ordering Provider: FRANCK TURNER Report Released Date/Time: Sep 03, 2024 12:15 PM Reporting Lab: [address] [address] Performing Lab: [address] [address] GLUCOSE-HAND MONITOR 135 mg/dL H 71-99 Sep 03, 2024 07:09 AM [facility] GLUCOSE-HAND MONITOR CAPILLARY Specime n Type: CAPILLARY Comment: Test performed by: [id number] Meter #: [id number] Ordering Provider: FRANCK TURNER Report Released Date/Time: Sep 03, 2024 07:26 AM Reporting Lab: [address] [address] Performing Lab: [address] [address] GLUCOSE-HAND MONITOR 120 mg/dL H 71-99 Sep 03, 2024 07:05 AM [facility] CBC/PLT BLOOD Specimen Type: BLOOD No comment entered. Ordering Provider: FRANCK TURNER Report Released Date/Time: Sep 02, 2024 04:29 PM Reporting Lab: [place] [id number] [facility] [address] Performing Lab: [address] [address] WBC 6.9 10*3/uL 5.0-10.0 RBC 3.48 10*6/uL [...] 02, 2024 04:29 PM Reporting Lab: [address] [address] Performing Lab: [address] [address] MAGNESIUM 1.7 mg/dL 1.6-2.6 Sep 03, 2024 [...] 02, 2024 04:29 PM Reporting Lab: [address] [address] Performing Lab: [address] [address] CREATININE 0.82 mg/dL 0.72-1.25 UREA NITROGEN 12 [...] BLOOD Comment: Prediabetes: 5.7%-6.4% Diabetes: >= 6.5% [facility] guidelines for A1c interpretation: Glycemic control targets are based on Shared Decision Making between clinicians and patients. Criteria used to establish an A1c target recommendation can be found at https://www.ak.gov/qualityandpatientsafety/ and include the use of result accuracy [...] 8.73 and 9.27. Ref: https://ngsp.org/CAPdata.asp. The in-house [employer] D-100 analyzer has a historical CV <= 2%. Contact the laboratory for further performance characteristics of this assay. Ordering Provider: FRANCK TURNER Report Released Date/Time: Sep 02, 2024 04:29 PM Reporting Lab: [address] [address] Performing Lab: [address] [address] GLYCOHEMOGLOBIN 5.6 4.4-5.6 Sep 03, 2024 07:05 AM [facility] OSMOLALITY SERUM Specimen Type: SERUM No comment entered. Ordering Provider: FRANCK TURNER Report Released Date/Time: Sep 02, 2024 04:44 PM Reporting Lab: [address] [address] Performing Lab: [address] [address] OSMOLALITY 271 mosm/kg L 280-300 Sep 02, 2024 08:15 PM [facility] GLUCOSE-HAND MONITOR CAPILLARY Specime n Type: CAPILLARY Comment: AAMIR RN notified Test performed by: [id number] Meter #: [id number] Ordering Provider: FRANCK TURNER Report Released Date/Time: Sep 02, 2024 08:57 PM Reporting Lab: [address] [address] Performing Lab: [address] [address] GLUCOSE-HAND MONITOR 126 mg/dL H 71-99 Sep [...] 02, 2024 05:12 PM Reporting Lab: [address] [address] Performing Lab: [address] [address] MRSA SURVL NARES DNA Negative Negative Sep 02, 2024 05:36 PM [facility] GLUCOSE-HAND MONITOR CAPILLARY Specime n Type: CAPILLARY Comment: Test performed by: [id number] Meter #: [id number] Ordering Provider: FRANCK TURNER Report Released Date/Time: Sep 02, 2024 05:53 PM Reporting Lab: [address] [address] Performing Lab: [address] [address] GLUCOSE-HAND MONITOR 127 mg/dL H 71-99 Aug 29, 2024 10:04 PM [facility] URINALYSIS WITH REFLEX TO CULTURE URINE Specimen Type: URINE Comment: ~For Test: URINALYSIS WITH REFLEX TO CULTURE ~REORDER Ordering Provider: FELISA COLE Report Released Date/Time: Aug 29, 2024 09:36 PM Reporting Lab: [address] [address] Performing Lab: [address] [address] URINE COLOR Yellow Colorless-Yellow APPEARANCE Clear Clear [...] 29, 2024 08:32 PM ELICIA-Sav [facility] HIGH SENSITIVITY TROPONIN I PLASMA Specimen [...] I information resource can be reached in [facility] in the Tools menu, under [...] 29, 2024 07:55 PM Reporting Lab: [address] [address] Performing Lab: [address] [address] HIGH SENSITIVITY TROPONIN I 7 4-35 Aug 29, 2024 08:32 PM [facility] CBC/PLT BLOOD Specimen Type: BLOOD No comment entered. Ordering Provider: FELISA COLE Report Released Date/Time: Aug 29, 2024 07:55 PM Reporting Lab: [address] [address] Performing Lab: [address] [address] WBC 11.2 10*3/uL H 5.0-10.0 RBC 3.97 10*6/uL L 4.6-6.2 HGB 10.9 g/dL L 14.0-18.0 HCT 33.5 L 42.0-52.0 MCV 84.4 fL 80.0-94.0 MCH 27.5 pg 27.0-31.0 MCHC 32.5 g/dL 32.0-36.0 PLT 230 10*3/uL 150-450 MPV 10.2 fL 9.0-13.1 RDW 14.6 11.0-16.0 NRBC 0.0 0.0-0.0 Aug 29, 2024 08:32 PM [facility] Specimen Type: PLASM [...] I information resource can be reached in [facility] in the Tools menu, under [...] 29, 2024 07:55 PM Reporting Lab: [address] [address] Performing Lab: [address] [address] CREATININE 0.85 mg/dL 0.72-1.25 UREA NITROGEN 15 [...] mm[Hg] 16 /min 96 % 0 [place] [...] 08, 2024 ADVANCE DIRECTIVE DISCUSSION [facility] Radiology Reports: +/- 30 days [...] BRAIN W & W/O: LUIS MANUEL PERDOMO [id number] -1945 M Exm Date: SEP 06, 2024@13:40 Req Phys: FRANCK TURNER Pat Loc: 5-MED/TEL/09-06-2024@19:09 Img Loc: [facility] Service: MEDICAL SERVICE [place] [id number] (Case [id number] COMPLETE) MRI BRAIN W & W/O (MRI Detailed) CPT:02257 Contrast Media : Gadolinium Reason for Study: SEE CLINICAL HISTORY Pharmaceutical: GADOTERIDOL 279.3MG/ML 20ML INJ, 19ml Clinical History: MRI Screening (Required): IMPLANTED DEVICE DOCUMENTATION IMPLANTED DEVICE DOCUMENTATION NOT FOUND Does the have any Cardiac Implants? None Does the [place] have any implanted stimulators? None Does the [...] 06, 2024 Date Verified: SEP 06, 2024 Distance Education Coordinator E-Sig: Report: MRI brain without and [...] Staff: ARCENIO LEYVA, Staff Radiologist Verified by materials director for ARCENIO LEYVA /ARCENIO AVILA [place]-CDD [facility] Sep 06, 2024 01:40 PM MRI C SPINE W & W/ O CONTRAST(FURTHER SEQUENCES): LUIS MANUEL PERDOMO [id number] -1945 M Exm Date: SEP 06, 2024@13:40 Req Phys: FRANCK TURNER Pat Loc: 5-MED/TEL/09-07-2024@06:42 Img Loc: [facility] Service: [facility] [place] [id number] (Case [id number] COMPLETE) MRI C SPINE W & W/O CONTRAST(FURT(MRI Detailed) CPT:25375 Contrast Media : Gadolinium Reason for Study: SEE CLINICAL HISTORY Pharmaceutical: GADOTERIDOL 279.3MG/ML 20ML INJ, 19ml Clinical History: STATUS OF PLAIN FILMS:Not performed (Provide justification for MR W/O prior plain films below.) MRI for MS MRI Screening (Required): IMPLANTED DEVICE DOCUMENTATION IMPLANTED DEVICE DOCUMENTATION NOT FOUND Does the [place] have any Cardiac Implants? None Does the have any implanted stimulators? None Does the have cochlear implants? No Does the have Cerebral aneurysm clip(s)? I don't know Does the [place] have any shrapnel? I don't know If yes, where in your body? Please list other implants not listed above: MRI table has a weight limit of 551 lbs. [place]'s Weight: *212 lb [96.16 kg] (09/04/2024 05:19) Is this patient claustrophobic?: No REASON FOR EXAM: MULTIPLE SCLEROSIS (indicate suspected or established) PERTINENT PATIENT HISTORY: MS c/f flare Risk factors for GADOLINIUM NEPHROGENIC SYSTEMIC SCLEROSIS: Report Status: Verified Date Reported: SEP 07, 2024 Date Verified: SEP 07, 2024 Distance Education Coordinator E-Sig: Report: EXAMINATION: MRI OF THE [...] Interpreting Staff: HUANG TAI Radiologist Verified by materials director for HUANG TAI /HUANG WHEATLEY-Sav [facility] Sep 03, 2024 10:45 AM CHEST SINGLE(1) EW: LUIS MANUEL PERDOMO FABIAN [id number] -1945 M Exm Date: SEP 03, 2024@10:45 Req Phys: FRANCK TURNER [facility] Loc: 5-MED/TEL/09-03-2024@10:56 Img Loc: CDD RADIOLOGY Service: [place] [address] (Case [id number] COMPLETE)CHEST SINGLE(1) VIEW (RAD Detailed) CPT:31358 Proc Modifiers : PORTABLE EXAM Reason for Study: Eval volume status Clinical History: Report Status: Verified Date Reported: SEP 03, 2024 Date Verified: SEP 03, 2024 Distance Education Coordinator E-Sig: Report: EXAMINATION: SINGLE VIEW CHEST [...] Interpreting Staff: HUANG TAI, Radiologist Verified by materials director for HUANG TAI /HUANG WHEATLEY-CDD [facility] Aug 29, 2024 08:[address] HEAD W/O CONT: LUIS MANUEL PERDOMO [id number] -1945 M Exm Date: AUG 29, 2024@20:28 Req Phys: DOUGLAS,FELISA Pat Loc: ED/4P-12A (Req'g Loc) Img Loc: CT SCAN Service: [place] [address] (Case [id number] COMPLETE) CT HEAD W/O CONT (CT Detailed) CPT:11085 Reason for Study: SEE CLINICAL HISTORY Clinical History: REASON FOR SEND OUT: ATTENDING PHYSICIAN NAME: New transient neurological s/s - suspected TIA HISTORY/REASON FOR EXAM: confusion Report Status: Verified Date Reported: AUG 29, 2024 Date Verified: AUG 29, 2024 Distance Education Coordinator E-Sig: Report: HISTORY confusion COMPARISON No [...] Staff: ABDIRAHMAN CROW, Staff Physician Verified by materials director for ABDIRAHMAN CROW /ABDIRAHMAN [facility] Pathology Reports: +/- 30 days [...] Lab: [facility] [CLIA# [id number]] [address] [place] [phone] Accession [UID]: [id number] [[id number]] Received: Sep 03, 2024@14:02 Collection sample: URINE, [...] By: [facility] [CLIA# [id number]] [address] [place], [place] [id number] MAGDY CALABRESE [facility] Sep 02, 2024 06:00 PM LR MICROBIOLOGY RE PORT: Reporting Lab: [facility] [CLIA# [id number]] [address] [place], [place] [address] Accession [UID]: [id number] [[id number]] Received: Sep 02, 2024@18:07 Collection sample: BLD CULTURE BOTTLES Collection date: Sep 02, 2024 18:00 Site/Specimen: BLOOD Provider: FRANCK TURNER Comment on specimen: L HAND Test(s) ordered: CULTURE, BLOOD................ completed: Sep 08, 2024 * BACTERIOLOGY FINAL REPORT => Sep 08, 2024 08:25 TECH CODE: [id number] Bacteriology Remark(s): Blood culture status=NO GROWTH (unless notified otherwise) 09/03/2024 AEROBIC: NO GROWTH ANAEROBIC: NO GROWTH =--=--=--=--=--=--=--=--=--=-- =--=--=--=--=--=--=--=--=--=-- =--=--=--=--=--=-- Performing Laboratory: Bacteriology Report Performed By: [facility] [CLIA# [id number]] [address] [place], [place] [id number] MAGDY CALABRESE [facility] Aug 29, 2024 10:18 PM LR MICROBIOLOGY RE PORT: Reporting Lab: [facility] [CLIA# [id number]] [address] [place], [place] [id number] Accession [UID]: [id number] [[id number]] Received: Aug 29, 2024@22:18 Collection sample: URINE, CLEAN CATCH Collection date: Aug 29, 2024 22:18 Site/Specimen: URINE Provider: FELISA COLE Test(s) ordered: CULTURE, URINE................ completed: Aug 31, 2024 09:51 * BACTERIOLOGY FINAL REPORT => Aug 31, 2024 09:51 TECH CODE: [id number] Bacteriology Remark(s): NO GROWTH 08/30/2024 <10,000 CFU/ML. 08/31/2024 =--=--=--=--=--=--=--=--=--=-- =--=--=--=--=--=--=--=--=--=-- =--=--=--=--=--=-- Performing Laboratory: Bacteriology Report Performed By: [facility] [CLIA# [id number]] [address] [place] [address] MAGDY CALABRESE-Sav [facility]
--- OUTSIDE RECORDS SUMMARY | 2024-09-08 10:45 | XMS_ITS ---
Author Name [facility] (ID) Organization [facility] ([facility]) Address [address] [place] [id number] Care Team Providers Care Brine Supervisor Name Role Phone YULISSA HENDERSON Primary [...] PLAN F Mar 24, 2014 PLAN F [id number] LUIS MANUEL PERDOMO PATIENT [facility] [place] BLUECARD PREFERRED PROVIDER ORGANIZAT ION (PPO) [facility] Sep 21, 2012 [id number] LUIS MANUEL PEDROMO PATIENT [employer] ([id number]) PRESCRIPT ION [id number] Sep 21, 2012 [id number] LUIS MANUEL PERDOMO PATIENT MEDICARE (WNR) MEDICARE (M) PART B Sep 21, 2012 PART B [id number] NOEMI PERDOMO PATIENT MEDICARE (WNR) MEDICARE (M) PART A Jan 22, 2011 PART A [id number] NOEMI PERDOMO PATIENT MEDICARE PART D (WNR) MEDICARE (M) PART D Mar 24, 2014 PART D [id number] LUIS MANUEL PERDOMO PATIENT Selected Encounter This section includes the information on record at ID for the Encounter. Date/Time Encounter Type Encounter Description Reason Provider Source Sep 08, 2024 02:45 PM INTEGRATION SOLUTION ARCHITECT FIELD INTERVIEWER INDIVIDU INTEGRATION SOLUTION ARCHITECT SERVICE - INDIVIDUAL ICD-10-CM Z71.81 Spiritual or confucianist counseling PAULA TINAJERO IHStephen Encounter Template Text not used by ID Assessments - Encounter Diagnoses This section includes the primary and secondary diagnoses documented for the Encounter. Date/Time Primary/Secondary Diagnosis Diagnosis Name Provider Source Sep 08, 2024 03:40 PM PRIMARY Spiritual or confucianist counseling [facility] Plan of Treatment: Future Appointments (+ 6 months) and Future Tests (+/- 45 days) The Plan of Treatment section includes future care activities for the patient from all ID treatmentfacilities. This section includes future appointments and future orders which are active, pending or scheduled. Future Appointments This section includes appointments that were scheduled to occur 6 months from the date of the Encounter, up to a maximum of 20 appointments. The data comes from all ID treatment facilities. Appointment Date/Time Appointment Type Appointme [...] of theEncounter. The data comes from all ID treatment facilities. Test Date/Time Test Type Test Details Facility Name Sep 13, 2024 01:33 PM Consult Order [facility] Cons Filler Block Inserter Remover's Choice [facility] Lab Results: +/- 30 days of the encounter This section includes the Chemistry and Hematology Lab Results on record with ID for the patient. Radiology Reports and Pathology Reports are provided separately, in subsequent sections. Lab Results This section contains the Chemistry/Hematology Results that were resulted 30 days before or 30 daysafter the date of the Encounter. Date/Time Source Result Type Result - Unit Interpretation Reference Range Specimen Type Comment Sep 09, 2024 12:16 PM [facility] GLUCOSE-HAND MONITOR CAPILLARY Specimen Type: CAPILLARY Comment: Test performed by: [id number] Meter #: [id number] Ordering Provider: FRANCK TURNER Report Released Date/Time: Sep 09, 2024 12:33 PM Reporting Lab: [address] [address] Performing Lab: [address] [address] GLUCOSE-HAND MONITOR 116 mg/dL H 71-99 Sep 09, 2024 06:07 AM [facility] GLUCOSE-HAND MONITOR CAPILLARY Specime n Type: CAPILLARY Comment: Test performed by: [id number] Meter #: [id number] Ordering Provider: FRANCK TURNER Report Released Date/Time: Sep 09, 2024 08:17 AM Reporting Lab: [address] [address] Performing Lab: [address] [address] GLUCOSE-HAND MONITOR 112 mg/dL H 71-99 Sep 08, 2024 09:13 PM [facility] GLUCOSE-HAND MONITOR CAPILLARY Specime n Type: CAPILLARY Comment: Test performed by: [id number] Meter #: [id number] Ordering Provider: FRANCK TURNER Report Released Date/Time: Sep 08, 2024 09:31 PM Reporting Lab: [address] [address] Performing Lab: [address] [address] GLUCOSE-HAND MONITOR 107 mg/dL H 71-99 Sep 08, 2024 03:49 PM [facility] GLUCOSE-HAND MONITOR CAPILLARY Specime n Type: CAPILLARY Comment: AAMIR RN notified Test performed by: [id number] Meter #: [id number] Ordering Provider: FRANCK TURNER Report Released Date/Time: Sep 08, 2024 04:33 PM Reporting Lab: [address] [address] Performing Lab: [address] [place] [address] GLUCOSE-HAND MONITOR 162 mg/dL H Sep 08, 2024 11:43 AM [facility] GLUCOSE-HAND MONITOR CAPILLARY Specime n Type: CAPILLARY Comment: AAMIR RN notified Test performed by: [id number] Meter #: [id number] Ordering Provider: FRANCK TURNER Report Released Date/Time: Sep 08, 2024 12:03 PM Reporting Lab: [address] [address] Performing Lab: [address] GLUCOSE-HAND MONITOR 133 mg/dL H Sep 08, 2024 06:13 AM [facility] GLUCOSE-HAND MONITOR CAPILLARY Specime n Type: CAPILLARY Comment: Test performed by: [id number] Meter #: [id number] Ordering Provider: FRANCK TURNER Report Released Date/Time: Sep 08, 2024 06:46 AM Reporting Lab: [address] [address] Performing Lab: [address] [address] GLUCOSE-HAND MONITOR 104 mg/dL H Sep 07, 2024 07:59 PM [facility] GLUCOSE-HAND MONITOR CAPILLARY Specime n Type: CAPILLARY Comment: Test performed by: [id number] Meter #: [id number] Ordering Provider: FRANCK TURNER Report Released Date/Time: Sep 07, 2024 09:05 PM Reporting Lab: [address] [address] Performing Lab: [address] [address] GLUCOSE-HAND MONITOR 107 mg/dL H Sep 07, 2024 04:39 PM [facility] GLUCOSE-HAND MONITOR CAPILLARY Specime n Type: CAPILLARY Comment: Test performed by: [id number] Meter #: [id number] Ordering Provider: FRANCK TURNER Report Released Date/Time: Sep 07, 2024 05:09 PM Reporting Lab: [address] [address] Performing Lab: [address] [address] GLUCOSE-HAND MONITOR 105 mg/dL H -Sep 07, 2024 11:41 AM [facility] GLUCOSE-HAND MONITOR CAPILLARY Specime n Type: CAPILLARY Comment: Test performed by: [id number] Meter #: [id number] Ordering Provider: FRANCK TURNER Report Released Date/Time: Sep 07, 2024 12:41 PM Reporting Lab: [address] [address] Performing Lab: [address] [address] GLUCOSE-HAND MONITOR 144 mg/dL H -Sep 07, 2024 05:56 AM [facility] GLUCOSE-HAND MONITOR CAPILLARY Specime n Type: CAPILLARY Comment: Test performed by: [id number] Meter #: [id number] Ordering Provider: FRANCK TURNER Report Released Date/Time: Sep 07, 2024 06:31 AM Reporting Lab: [address] [address] Performing Lab: [address] [address] GLUCOSE-HAND MONITOR 96 mg/dL -Sep 06, 2024 08:10 PM [facility] GLUCOSE-HAND MONITOR CAPILLARY Specime n Type: CAPILLARY Comment: Test performed by: [id number] Meter #: [id number] Ordering Provider: FRANCK TURNER Report Released Date/Time: Sep 06, 2024 08:52 PM Reporting Lab: [address] [address] Performing Lab: [address] [address] GLUCOSE-HAND MONITOR 124 mg/dL H -Sep 06, 2024 04:27 PM [facility] GLUCOSE-HAND MONITOR CAPILLARY Specime n Type: CAPILLARY Comment: Test performed by: [id number] Meter #: [id number] Ordering Provider: FRANCK TURNER Report Released Date/Time: Sep 06, 2024 05:15 PM Reporting Lab: [address] [address] Performing Lab: [address] [address] GLUCOSE-HAND MONITOR 107 mg/dL H Sep 06, 2024 12:12 PM [facility] GLUCOSE-HAND MONITOR CAPILLARY Specime n Type: CAPILLARY Comment: Test performed by: [id number] Meter #: [id number] Ordering Provider: FRANCK TURNER Report Released Date/Time: Sep 06, 2024 12:29 PM Reporting Lab: [address] [address] Performing Lab: [address] [address] GLUCOSE-HAND MONITOR 181 mg/dL H Sep 06, 2024 06:13 AM [facility] GLUCOSE-HAND MONITOR CAPILLARY Specime n Type: CAPILLARY Comment: Test performed by: [id number] Meter #: [id number] Ordering Provider: FRANCK TURNER Report Released Date/Time: Sep 06, 2024 06:36 AM Reporting Lab: [address] [address] Performing Lab: [address] [address] GLUCOSE-HAND MONITOR 102 mg/dL H Sep 05, 2024 08:47 PM [facility] GLUCOSE-HAND MONITOR CAPILLARY Specime n Type: CAPILLARY Comment: Test performed by: [id number] Meter #: [id number] Ordering Provider: FRANCK TURNER Report Released Date/Time: Sep 06, 2024 02:13 AM Reporting Lab: [address] [address] Performing Lab: [address] [address] GLUCOSE-HAND MONITOR 103 mg/dL H Sep 05, 2024 04:40 PM [facility] GLUCOSE-HAND MONITOR CAPILLARY Specime n Type: CAPILLARY Comment: AAMIR RN notified Test performed by: [id number] Meter #: [id number] Ordering Provider: FRANCK TURNER Report Released Date/Time: Sep 05, 2024 05:11 PM Reporting Lab: [address] [address] Performing Lab: [address] [address] GLUCOSE-HAND MONITOR 113 mg/dL H -Sep 05, 2024 12:06 PM [facility] GLUCOSE-HAND MONITOR CAPILLARY Specime n Type: CAPILLARY Comment: Test performed by: [id number] Meter #: [id number] Ordering Provider: RFANCK TURNER Report Released Date/Time: Sep 05, 2024 12:23 PM Reporting Lab: [address] [address] Performing Lab: [address] [address] GLUCOSE-HAND MONITOR 115 mg/dL H Sep 05, 2024 06:26 AM [facility] GLUCOSE-HAND MONITOR CAPILLARY Specime n Type: CAPILLARY Comment: AAMIR Correction Dose Test performed by: [id number] Meter #: [id number] Ordering Provider: FRACNK TURNER Report Released Date/Time: Sep 05, 2024 06:43 AM Reporting Lab: [address] [address] Performing Lab: [address] [address] GLUCOSE-HAND MONITOR 111 mg/dL H Sep 04, 2024 08:59 PM [facility] GLUCOSE-HAND MONITOR CAPILLARY Specime n Type: CAPILLARY Comment: AAMIR RN notified Test performed by: [id number] Meter #: [id number] Ordering Provider: FRANCK TURNER Report Released Date/Time: Sep 04, 2024 09:36 PM Reporting Lab: [address] [address] Performing Lab: [address] [address] GLUCOSE-HAND MONITOR 123 mg/dL H Sep 04, 2024 04:41 PM [facility] GLUCOSE-HAND MONITOR CAPILLARY Specime n Type: CAPILLARY Comment: AAMIR RN notified Test performed by: [id number] Meter #: [id number] Ordering Provider: FRANCK TURNER Report Released Date/Time: Sep 04, 2024 05:03 PM Reporting Lab: [place] [id number] Performing Lab: [place] [phone] GLUCOSE-HAND MONITOR 118 mg/dL H Sep 04, 2024 12:36 PM [facility] GLUCOSE-HAND MONITOR CAPILLARY Specime n Type: CAPILLARY Comment: AAMIR RN notified Test performed by: [id number] Meter #: [id number] Ordering Provider: FRANCK TURNER Report Released Date/Time: Sep 04, 2024 12:53 PM Reporting Lab: [place] [phone] Performing Lab: [place] [phone] GLUCOSE-HAND MONITOR 129 mg/dL H Sep 04, 2024 12:03 PM [facility] RESPIRATORY VIRUS PANEL (BIOFIRE) NASOPHARYN X Specimen Type: NASOPHARYNX Comment: ~For Test: RESPIRATORY VIRUS PANEL (BIOFIRE) ~ORDER READ BACK TO: FRANCK TURNER 09/04/24@11:30 Ordering Provider: FRANCK TURNER Report Released Date/Time: Sep 04, 2024 11:33 AM Reporting Lab: [place] [phone] Performing Lab: [place] [address] ADENOVIRUS (BIOFIRE) Not Detected -Not D etected [...] Detected Sep 04, 2024 06:55 AM [facility] MAGNESIUM PLASMA Specimen Type: PLASM A [...] 03, 2024 11:10 AM Reporting Lab: [facility] [address] [facility] [address] Performing Lab: [address] [address] MAGNESIUM 1.8 mg/dL 1.6-2.6 Sep 04, 2024 [...] Sep 03, 2024 11:10 AM Reporting Lab: [address] [address] Performing Lab: [place] [phone] CREATININE 0.75 mg/dL 0.72-1.25 UREA NITROGEN 13 [...] n Type: CAPILLARY Comment: Test performed by: [id number] Meter #: [id number] Ordering Provider: FRANCK TURNER Report Released Date/Time: Sep 04, 2024 06:28 AM Reporting Lab: [address] [address] Performing Lab: [address] [address] GLUCOSE-HAND MONITOR 114 mg/dL H -Sep 03, 2024 05:19 PM [facility] GLUCOSE-HAND MONITOR CAPILLARY Specime n Type: CAPILLARY Comment: Test performed by: [id number] Meter #: [id number] Ordering Provider: FRANCK TURNER Report Released Date/Time: Sep 03, 2024 05:37 PM Reporting Lab: [address] [address] Performing Lab: [address] [address] GLUCOSE-HAND MONITOR 124 mg/dL H -99 Sep 03, 2024 04:41 PM [facility] GLUCOSE-HAND MONITOR CAPILLARY Specime n Type: CAPILLARY Comment: Test performed by: [id number] Meter #: [id number] Ordering Provider: FRANCK TURNER Report Released Date/Time: Sep 03, 2024 06:09 PM Reporting Lab: [address] [address] Performing Lab: [address] [address] GLUCOSE-HAND MONITOR 112 mg/dL H 71-99 Sep 03, 2024 01:35 PM [facility] URINE LYTES URINE Specimen Type : URINE Comment: ~Altered mental status with no identifiable cause Ordering Provider: FRANCK TURNER Report Released Date/Time: Sep 02, 2024 04:44 PM Reporting Lab: [address] [address] Performing Lab: [address] [address] SODIUM 130 mmol/L POTASSIUM 47.6 mmol/L CHLORIDE 137 mmol/L Sep 03, 2024 01:35 PM [facility] CREATININE URINE Specimen Type: URINE Comment: ~Altered mental status with no identifiable cause Ordering Provider: FRANCK TURNER Report Released Date/Time: Sep 02, 2024 04:44 PM Reporting Lab: [address] [address] Performing Lab: [address] [address] CREATININE 150.9 mg/dL Sep 03, 2024 01:35 PM [facility] UREA NITROGEN URINE Specimen Type : URINE Comment: ~Altered mental status with no identifiable cause Ordering Provider: FRANCK TURNER Report Released Date/Time: Sep 02, 2024 04:44 PM Reporting Lab: [address] [address] Performing Lab: [address] [address] UREA NITROGEN 320 mg/dL Sep 03, 2024 01:35 PM [facility] OSMOLALITY URINE Specimen Type: URINE Comment: ~Altered mental status with no identifiable cause Ordering Provider: FRANCK TURNER Report Released Date/Time: Sep 02, 2024 04:44 PM Reporting Lab: [address] [address] Performing Lab: [address] [address] OSMOLALITY 522 mosm/kg 38-1400 Sep 03, 2024 01:35 PM [facility] URINALYSIS WITH REFLEX TO CULTURE URINE Specimen Type: URINE Comment: ~Altered mental status with no identifiable cause Ordering Provider: FRANCK TURNER Report Released Date/Time: Sep 02, 2024 04:44 PM Reporting Lab: [address] [address] Performing Lab: [address] [address] URINE COLOR Yellow Colorless-Yellow APPEARANCE CLOUDY H [...] Comment: AAMIR RN notified Test performed by: [id number] Meter #: [id number] Ordering Provider: FRANCK TURNER Report Released Date/Time: Sep 03, 2024 12:15 PM Reporting Lab: [address] [address] Performing Lab: [address] [address] GLUCOSE-HAND MONITOR 135 mg/dL H 71-99 Sep 03, 2024 07:09 AM [facility] GLUCOSE-HAND MONITOR CAPILLARY Specime n Type: CAPILLARY Comment: Test performed by: [id number] Meter #: [id number] Ordering Provider: FRANCK TURNER Report Released Date/Time: Sep 03, 2024 07:26 AM Reporting Lab: [address] [address] Performing Lab: [address] [address] GLUCOSE-HAND MONITOR 120 mg/dL H 71-99 Sep 03, 2024 07:05 AM [facility] CBC/PLT BLOOD Specimen Type: BLOOD No comment entered. Ordering Provider: FRANCK TURNER Report Released Date/Time: Sep 02, 2024 04:29 PM Reporting Lab: [address] [address] Performing Lab: [address] [address] WBC 6.9 10*3/uL 5.0-10.0 RBC 3.48 10*6/uL [...] 02, 2024 04:29 PM Reporting Lab: [address] [address] Performing Lab: [address] [address] MAGNESIUM 1.7 mg/dL 1.6-2.6 Sep 03, 2024 [...] 02, 2024 04:29 PM Reporting Lab: [address] [address] Performing Lab: [address] [address] CREATININE 0.82 mg/dL 0.72-1.25 UREA NITROGEN 12 [...] BLOOD Comment: Prediabetes: 5.7%-6.4% Diabetes: >= 6.5% [facility] guidelines for A1c interpretation: Glycemic control targets are based on Shared Decision Making between clinicians and patients. Criteria used to establish an A1c target recommendation can be found at https://www.ma.gov/qualityandpatientsafety/ and include the use of result accuracy [...] 8.73 and 9.27. Ref: https://ngsp.org/CAPdata.asp. The in-house [employer] D-100 analyzer has a historical CV <= 2%. Contact the laboratory for further performance characteristics of this assay. Ordering Provider: FRANCK TURNER Report Released Date/Time: Sep 02, 2024 04:29 PM Reporting Lab: [place] [phone] Performing Lab: [place] [phone] GLYCOHEMOGLOBIN 5.6 4.4-5.6 Sep 03, 2024 07:05 AM [facility] OSMOLALITY SERUM Specimen Type: SERUM No comment entered. Ordering Provider: FRANCK TURNER Report Released Date/Time: Sep 02, 2024 04:44 PM Reporting Lab: [address] [address] Performing Lab: [address] [address] OSMOLALITY 271 mosm/kg L 280-300 Sep 02, 2024 08:15 PM [facility] GLUCOSE-HAND MONITOR CAPILLARY Specime n Type: CAPILLARY Comment: AAMIR DEXTER notified Test performed by: [id number] Meter #: [id number] Ordering Provider: FRANCK TURNER Report Released Date/Time: Sep 02, 2024 08:57 PM Reporting Lab: [address] [address] Performing Lab: [address] [address] GLUCOSE-HAND MONITOR 126 mg/dL H 71-99 Sep [...] Sep 02, 2024 05:12 PM Reporting Lab: [place] [phone] Performing Lab: [place] [phone] MRSA SURVL NARES DNA Negative Negative Sep 02, 2024 05:36 PM [facility] GLUCOSE-HAND MONITOR CAPILLARY Specime n Type: CAPILLARY Comment: Test performed by: [id number] Meter #: [id number] Ordering Provider: FRANCK TURNER Report Released Date/Time: Sep 02, 2024 05:53 PM Reporting Lab: [place] [phone] Performing Lab: [place] [phone] GLUCOSE-HAND MONITOR 127 mg/dL H 71-99 Aug 29, 2024 10:04 PM [facility] URINALYSIS WITH REFLEX TO CULTURE URINE Specimen Type: URINE Comment: ~For Test: URINALYSIS WITH REFLEX TO CULTURE ~REORDER Ordering Provider: FELISA COLE Report Released Date/Time: Aug 29, 2024 09:36 PM Reporting Lab: [address] [address] Performing Lab: [address] [address] URINE COLOR Yellow Colorless-Yellow APPEARANCE Clear Clear [...] 0-28 Aug 29, 2024 08:32 PM [facility] HIGH SENSITIVITY TROPONIN I PLASMA Specimen [...] 29, 2024 07:55 PM Reporting Lab: [address] [address] Performing Lab: [address] [address] HIGH SENSITIVITY TROPONIN I 7 4-35 Aug 29, 2024 08:32 PM [facility] CBC/PLT BLOOD Specimen Type: BLOOD No comment entered. Ordering Provider: FELISA COLE Report Released Date/Time: Aug 29, 2024 07:55 PM Reporting Lab: [address] [address] Performing Lab: [facility] [address] [facility] [address] WBC 11.2 10*3/uL H 5.0-10.0 RBC 3.97 10*6/uL L 4.6-6.2 HGB 10.9 g/dL L 14.0-18.0 HCT 33.5 L 42.0-52.0 MCV 84.4 fL 80.0-94.0 MCH 27.5 pg 27.0-31.0 MCHC 32.5 g/dL 32.0-36.0 PLT 230 10*3/uL 150-450 MPV 10.2 fL 9.0-13.1 RDW 14.6 11.0-16.0 NRBC 0.0 0.0-0.0 Aug 29, 2024 08:32 PM [facility] PANEL 5 PLASMA Specimen Type: PLASM [...] 29, 2024 07:55 PM Reporting Lab: [address] [address] Performing Lab: [address] [address] CREATININE 0.85 mg/dL 0.72-1.25 UREA NITROGEN 15 [...] 96 % 0 [place] [facility] Sep 08, 2024 09:03 PM 0 [place] Sep 08, 2024 03:46 PM 97.7 F 76 /min 148/70 mm[Hg] 16 /min 96 % 0 [place] [facility] Sep 08, 2024 11:42 AM 97.4 F 67 /min 125/69 mm[Hg] 92 % [place] [facility] Sep 08, 2024 09:30 AM [facility] Advance Directives: All historical and current Section Date Range: From patient's date of to the date document was created. This section includes ALL of a patient's completed or amended ID Advance and Rescinded Directives. The entries below indicate that a directive exists for the patient, but an actual copy is not included with this document. The data comes from all ID facilities. Date Advance Directives Provider Source Mar 08, 2024 ADVANCE DIRECTIVE DISCUSSION [facility] Radiology Reports: +/- 30 days [...] the Encounter. The data comes from all ID treatment facilities. Date/Time Radiology Report Provider Source Sep 06, 2024 01:40 PM MRI BRAIN W & W/O: LUIS MANUEL PERDOMO [id number] -1945 M Exm Date: SEP 06, 2024@13:40 Req Phys: FRANCK TURNERFRANNY Pat Loc: 5-MED/TEL/09-06-2024@19:09 Img Loc: [facility] Service: [facility] [place] [id number] (Case [id number] COMPLETE) MRI BRAIN W & W/O (MRI Detailed) CPT:74663 Contrast Media : Gadolinium Reason for Study: SEE CLINICAL HISTORY Pharmaceutical: GADOTERIDOL 279.3MG/ML 20ML INJ, 19ml Clinical History: MRI Screening (Required): IMPLANTED DEVICE DOCUMENTATION IMPLANTED DEVICE DOCUMENTATION NOT FOUND Does the [place] have any Cardiac Implants? None Does the [place] have any implanted stimulators? None Does the [place] have cochlear implants? No Does the have [...] 06, 2024 Date Verified: SEP 06, 2024 Poultry Scalder E-Sig: Report: MRI brain without and with [...] Staff: ARCENIO LEYVA, Staff Radiologist Verified by power station operator for ARCENIO LEYVA /ARCENIO AVILA AAMIRWILSON-CDD [facility] Sep 06, 2024 01:40 PM MRI C SPINE W & W/ O CONTRAST(FURTHER SEQUENCES): LUIS MANUEL PERDOMO [id number] -1945 M Exm Date: SEP 06, 2024@13:40 Req Phys: FRANCK TURNER Pat Loc: 5-MED/TEL/09-07-2024@06:42 Img Loc: [facility] Service: [facility] [place] [id number] (Case [id number] COMPLETE) MRI C SPINE W & W/O CONTRAST(FURT(MRI Detailed) CPT:30654 Contrast Media : Gadolinium Reason for Study: SEE CLINICAL HISTORY Pharmaceutical: GADOTERIDOL 279.3MG/ML 20ML INJ, 19ml Clinical History: STATUS OF PLAIN FILMS:Not performed (Provide justification for MR W/O prior plain films below.) MRI for MS MRI Screening (Required): IMPLANTED DEVICE DOCUMENTATION IMPLANTED DEVICE DOCUMENTATION NOT FOUND Does the have any Cardiac Implants? None Does the [place] have any implanted stimulators? None Does the have cochlear implants? No Does the [place] have Cerebral aneurysm clip(s)? I don't know Does the have any shrapnel? I don't know If yes, where in your body? Please list other implants not listed above: MRI table has a weight limit of 551 lbs. Eden's Weight: *212 lb [96.16 kg] (09/04/2024 05:19) Is this patient claustrophobic?: No REASON FOR EXAM: MULTIPLE SCLEROSIS (indicate suspected or established) PERTINENT PATIENT HISTORY: MS c/f flare Risk factors for GADOLINIUM NEPHROGENIC SYSTEMIC SCLEROSIS: Report Status: Verified Date Reported: SEP 07, 2024 Date Verified: SEP 07, 2024 Poultry Scalder E-Sig: Report: EXAMINATION: MRI OF THE CERVICAL [...] Interpreting Staff: HUANG TAI, Radiologist Verified by power station operator for HUANG TAI /HUANG WHEATLEY-MALKA [facility] Sep 03, 2024 10:45 AM CHEST SINGLE(1) EW: LUIS MANUEL PERDOMO [id number] -1945 M Exm Date: SEP 03, 2024@10:45 Req Phys: FRANCK TURNER Pat Loc: 5-MED/TEL/09-03-2024@10:56 Img Loc: [facility] RADIOLOGY Service: [place] [address] (Case [id number] COMPLETE)CHEST SINGLE(1) VIEW (RAD Detailed) CPT:41694 Proc Modifiers : PORTABLE EXAM Reason for Study: Eval volume status Clinical History: Report Status: Verified Date Reported: SEP 03, 2024 Date Verified: SEP 03, 2024 Poultry Scalder E-Sig: Report: EXAMINATION: SINGLE VIEW CHEST CLINICAL [...] Interpreting Staff: HUANG TAI, Radiologist Verified by power station operator for HUANG TAI /HUANG WHEATLEY-Sav [facility] Aug 29, 2024 08:[address] HEAD W/O CONT: LUIS MANUEL PERDOMO [id number] -1945 M Exm Date: AUG 29, 2024@20:28 Req Phys: FELISA COLE Loc: ED/4P-12A (Req'g Loc) Img Loc: CT SCAN Service: [place] [address] (Case [id number] COMPLETE) CT HEAD W/O CONT (CT Detailed) CPT:53354 Reason for Study: SEE CLINICAL HISTORY Clinical History: REASON FOR SEND OUT: ATTENDING PHYSICIAN NAME: New transient neurological s/s - suspected TIA HISTORY/REASON FOR EXAM: confusion Report Status: Verified Date Reported: AUG 29, 2024 Date Verified: AUG 29, 2024 Poultry Scalder E-Sig: Report: HISTORY confusion COMPARISON No prior [...] Staff: ABDIRAHMAN CROW, Staff Physician Verified by power station operator for ABDIRAHMAN CROW /[facility]MAN [facility] Pathology Reports: +/- 30 days [...] the Encounter. The data comes from all ID treatment facilities. Date/Time Pathology Report Provider Source Sep 03, 2024 01:35 PM LR MICROBIOLOGY RE PORT: Reporting Lab: [facility] [CLIA# [id number]] [address] [place] [id number] Accession [UID]: [id number] [[id number]] Received: Sep 03, 2024@14:02 Collection sample: URINE, [...] [facility] [IA# [id number]] [address] [place], [place] [phone] MAGDY CALABRESE [facility] Sep 02, 2024 06:00 PM LR MICROBIOLOGY RE PORT: Reporting Lab: [facility] [[facility]# [id number]] [address] [place] [address] Accession [UID]: [id number] [[id number]] Received: Sep 02, 2024@18:07 Collection sample: BLD CULTURE BOTTLES Collection date: Sep 02, 2024 18:00 Site/Specimen: BLOOD Provider: FRANCK TURNER Comment on specimen: L HAND Test(s) ordered: CULTURE, BLOOD................ completed: Sep 08, 2024 * BACTERIOLOGY FINAL REPORT => Sep 08, 2024 08:25 [facility] CODE: [id number] Bacteriology Remark(s): Blood culture status=NO GROWTH (unless notified otherwise) 09/03/2024 AEROBIC: NO GROWTH ANAEROBIC: NO GROWTH =--=--=--=--=--=--=--=--=--=-- =--=--=--=--=--=--=--=--=--=-- =--=--=--=--=--=-- Performing Laboratory: Bacteriology Report Performed By: [facility] [CLIA# [id number]] [address] [place] [phone] MAGDY CALABRESE [facility] Aug 29, 2024 10:18 PM LR MICROBIOLOGY RE PORT: Reporting Lab: [facility] [IA# [id number]] [address] [place] [id number] Accession [UID]: [id number] [[id number]] Received: Aug 29, 2024@22:18 Collection sample: URINE, CLEAN CATCH Collection date: Aug 29, 2024 22:18 Site/Specimen: URINE Provider: FELISA COLE Test(s) ordered: CULTURE, URINE................ completed: Aug 31, 2024 09:51 * BACTERIOLOGY FINAL REPORT => Aug 31, 2024 09:51 TECH CODE: [id number] Bacteriology Remark(s): NO GROWTH 08/30/2024 <10,000 CFU/ML. 08/31/2024 =--=--=--=--=--=--=--=--=--=-- =--=--=--=--=--=--=--=--=--=-- =--=--=--=--=--=-- Performing Laboratory: Bacteriology Report Performed By: [facility] [CLIA# [id number]] [address] [place] [phone] MAGDY CALABRESE [facility] Encounter Notes: All associated encounter notes This section contains the clinical notes associated to the Encounter. Date/Time Encounter Note(s) Provider Source Sep 08, 2024 03:40 PM PASTORAL CARE NOTE : LOCAL TITLE: INTEGRATION SOLUTION ARCHITECT NOTE STANDARD TITLE: PASTORAL CARE NOTE DATE OF NOTE: SEP 08, 2024@15:40 ENTRY DATE: SEP 08, 2024@15:41:04 AUTHOR: FELISA VALDEZ EXP COSIGNER: PAULA TINAJERO URGENCY: STATUS: COMPLETED SUBJECT: 5-MED/TEL Protective Signal Installer Helper Visit Offered Pastoral Care., Provided Pastoral Care to patient on unit., Provided Pastoral Care to family., Provided supportive presence, explored emotions, and/or facilitated storytelling. COMMENTS: Eden was in good spirits. Eden has lost hearing aids and staff has been looking for the . would like to go home. Protective Signal Installer Helper service is available PRN. /rosette/ FELISA VALDEZ Protective Signal Installer Helper Facilities Maintenance Worker Signed: 09/08/2024 15:43 /rosette/ PAULA TINAJERO D.MIN., [facility] Clinical Staff Protective Signal Installer Helper Cosigned: 09/08/2024 15:45 [facility]
--- OUTSIDE RECORDS SUMMARY | 2024-09-08 11:13 | XMS_ITS ---
[place] DAILY HOSPITALIZATION DATA [facility] Encounter Summary Created on: September 22, 2024 LUIS MANUEL PERDOMO : 1945 Sex: Male Author Name Department of [facility] ([place]) Organization Department of [facility] ([place]) Address [address] [place] [address] Care Team Providers Care Tmd Teacher Name Role Phone YULISSA HENDERSON Primary Care [...] PLAN F Mar 24, 2014 PLAN F [id number] LUIS MANUEL PERDMOO PATIENT [facility] [place] BLUECARD PREFERRED PROVIDER ORGANIZAT ION (PPO) [facility] SLE Sep 21, 2012 [id number] LUIS MANUEL PERDOMO PATIENT [employer] [facility] ([id number]) PRESCRIPT ION WL3A Sep 21, 2012 [id number] LUIS MANUEL PERDOMO PATIENT MEDICARE (WNR) MEDICARE (M) PART B Sep 21, 2012 PART B [id number] NOEMI PERDOMO PATIENT MEDICARE (WNR) MEDICARE (M) PART A Jan 22, 2011 PART A [id number] LEANNE, NOEMI PATIENT MEDICARE PART D (WNR) MEDICARE (M) PART D Mar 24, 2014 PART D [id number] LUIS MANUEL PERDOMO PATIENT Selected Encounter This section includes the information on record at [place] for the Encounter. Date/Time Encounter Type Encounter Description Reason Pro vider Source Sep 08, 2024 03:13 PM Inpatient Visit DAILY HOSPITALIZATION DATA [facility] Encounter Template Text not used by [place] Plan of Treatment: Future Appointments (+ 6 months) and Future Tests (+/- 45 days) The Plan of Treatment section includes future care activities for the [facility] [place] [facility] This section includes future [...] 13, 2024 08:00 AM AMBULATORY - NONE [facility] Sep 30, 2024 01:30 PM [...] of theEncounter. The data comes from all [facility] facilities. Test Date/Time Test Type Test Details Facility Name Sep 13, 2024 01:33 PM Consult Order [facility] SKILLED HOME CARE Cons Tank Inspector's Choice [facility] Lab Results: +/- 30 days [...] Specimen Type: CAPILLARY Comment: Test performed by: [id number] Meter #: [id number] Ordering Provider: FRANCK TURNER Report Released Date/Time: Sep 09, 2024 12:33 PM Reporting Lab: [address] [address] Performing Lab: [address] [address] GLUCOSE-HAND MONITOR 116 mg/dL H Sep 09, 2024 06:07 AM [facility] GLUCOSE-HAND MONITOR CAPILLARY Specime n Type: CAPILLARY Comment: Test performed by: [id number] Meter #: [id number] Ordering Provider: FRANCK TURNER Report Released Date/Time: Sep 09, 2024 08:17 AM Reporting Lab: [address] [address] Performing Lab: [address] [address] GLUCOSE-HAND MONITOR 112 mg/dL H Sep 08, 2024 09:13 PM [facility] GLUCOSE-HAND MONITOR CAPILLARY Specime n Type: CAPILLARY Comment: Test performed by: [id number] Meter #: [id number] Ordering Provider: FRANCK TURNER Report Released Date/Time: Sep 08, 2024 09:31 PM Reporting Lab: [address] [address] Performing Lab: [address] [address] GLUCOSE-HAND MONITOR 107 mg/dL H Sep 08, 2024 03:49 PM [facility] GLUCOSE-HAND MONITOR CAPILLARY Specime n Type: CAPILLARY Comment: AAMIR RN notified Test performed by: [id number] Meter #: [id number] Ordering Provider: FRANCK TURNER Report Released Date/Time: Sep 08, 2024 04:33 PM Reporting Lab: [address] [address] Performing Lab: [address] [address] GLUCOSE-HAND MONITOR 162 mg/dL H Sep 08, 2024 11:43 AM [facility] GLUCOSE-HAND MONITOR CAPILLARY Specime n Type: CAPILLARY Comment: AAMIR RN notified Test performed by: [id number] Meter #: [id number] Ordering Provider: FRANCK TURNER Report Released Date/Time: Sep 08, 2024 12:03 PM Reporting Lab: [address] [address] Performing Lab: [address] [address] GLUCOSE-HAND MONITOR 133 mg/dL H Sep 08, 2024 06:13 AM [facility] GLUCOSE-HAND MONITOR CAPILLARY Specime n Type: CAPILLARY Comment: Test performed by: [id number] Meter #: [id number] Ordering Provider: FRANCK TURNER Report Released Date/Time: Sep 08, 2024 06:46 AM Reporting Lab: [address] [address] Performing Lab: [address] [address] GLUCOSE-HAND MONITOR 104 mg/dL H Sep 07, 2024 07:59 PM [facility] GLUCOSE-HAND MONITOR CAPILLARY Specime n Type: CAPILLARY Comment: Test performed by: [id number] Meter #: [id number] Ordering Provider: FRANCK TURNER Report Released Date/Time: Sep 07, 2024 09:05 PM Reporting Lab: [address] [address] Performing Lab: [address] [address] GLUCOSE-HAND MONITOR 107 mg/dL H Sep 07, 2024 04:39 PM [facility] GLUCOSE-HAND MONITOR CAPILLARY Specime n Type: CAPILLARY Comment: Test performed by: [id number] Meter #: [id number] Ordering Provider: FRANCK TURNER Report Released Date/Time: Sep 07, 2024 05:09 PM Reporting Lab: [address] [address] Performing Lab: [address] [address] GLUCOSE-HAND MONITOR 105 mg/dL H Sep 07, 2024 11:41 AM [facility] GLUCOSE-HAND MONITOR CAPILLARY Specime n Type: CAPILLARY Comment: Test performed by: [id number] Meter #: [id number] Ordering Provider: FRANCK TURNER Report Released Date/Time: Sep 07, 2024 12:41 PM Reporting Lab: [address] [address] Performing Lab: [address] [address] GLUCOSE-HAND MONITOR 144 mg/dL H Sep 07, 2024 05:56 AM [facility] GLUCOSE-HAND MONITOR CAPILLARY Specime n Type: CAPILLARY Comment: Test performed by: [id number] Meter #: [id number] Ordering Provider: FRANCK TURNER Report Released Date/Time: Sep 07, 2024 06:31 AM Reporting Lab: [address] [address] Performing Lab: [address] [address] GLUCOSE-HAND MONITOR 96 mg/dL Sep 06, 2024 08:10 PM [facility] GLUCOSE-HAND MONITOR CAPILLARY Specime n Type: CAPILLARY Comment: Test performed by: [id number] Meter #: [id number] Ordering Provider: FRANCK TURNER Report Released Date/Time: Sep 06, 2024 08:52 PM Reporting Lab: [address] [address] Performing Lab: [address] [address] GLUCOSE-HAND MONITOR 124 mg/dL H Sep 06, 2024 04:27 PM [facility] GLUCOSE-HAND MONITOR CAPILLARY Specime n Type: CAPILLARY Comment: Test performed by: [id number] Meter #: [id number] Ordering Provider: FRANCK TURNER Report Released Date/Time: Sep 06, 2024 05:15 PM Reporting Lab: [address] [address] Performing Lab: [address] [address] GLUCOSE-HAND MONITOR 107 mg/dL H Sep 06, 2024 12:12 PM [facility] GLUCOSE-HAND MONITOR CAPILLARY Specime n Type: CAPILLARY Comment: Test performed by: [id number] Meter #: [id number] Ordering Provider: FRANCK TURNER Report Released Date/Time: Sep 06, 2024 12:29 PM Reporting Lab: [address] [address] Performing Lab: [address] [address] GLUCOSE-HAND MONITOR 181 mg/dL H -Sep 06, 2024 06:13 AM [facility] GLUCOSE-HAND MONITOR CAPILLARY Specime n Type: CAPILLARY Comment: Test performed by: [id number] Meter #: [id number] Ordering Provider: FRANCK TURNER Report Released Date/Time: Sep 06, 2024 06:36 AM Reporting Lab: [address] [address] Performing Lab: [address] [address] GLUCOSE-HAND MONITOR 102 mg/dL H Sep 05, 2024 08:47 PM [facility] GLUCOSE-HAND MONITOR CAPILLARY Specime n Type: CAPILLARY Comment: Test performed by: [id number] Meter #: [id number] Ordering Provider: FRANCK TURNER Report Released Date/Time: Sep 06, 2024 02:13 AM Reporting Lab: [address] [address] Performing Lab: [address] [address] GLUCOSE-HAND MONITOR 103 mg/dL H Sep 05, 2024 04:40 PM [facility] GLUCOSE-HAND MONITOR CAPILLARY Specime n Type: CAPILLARY Comment: AAMIR RN notified Test performed by: [id number] Meter #: [id number] Ordering Provider: FRANCK TURNER Report Released Date/Time: Sep 05, 2024 05:11 PM Reporting Lab: [address] [address] Performing Lab: [address] [address] GLUCOSE-HAND MONITOR 113 mg/dL H Sep 05, 2024 12:06 PM [facility] GLUCOSE-HAND MONITOR CAPILLARY Specime n Type: CAPILLARY Comment: Test performed by: [id number] Meter #: [id number] Ordering Provider: FRANCK TURNER Report Released Date/Time: Sep 05, 2024 12:23 PM Reporting Lab: [address] [address] Performing Lab: [address] [address] GLUCOSE-HAND MONITOR 115 mg/dL H Sep 05, 2024 06:26 AM [facility] GLUCOSE-HAND MONITOR CAPILLARY Specime n Type: CAPILLARY Comment: AAMIR Correction Dose Test performed by: [id number] Meter #: [id number] Ordering Provider: FRANCK TURNER Report Released Date/Time: Sep 05, 2024 06:43 AM Reporting Lab: [address] [address] Performing Lab: [address] [address] GLUCOSE-HAND MONITOR 111 mg/dL H Sep 04, 2024 08:59 PM [facility] GLUCOSE-HAND MONITOR CAPILLARY Specime n Type: CAPILLARY Comment: AAMIR RN notified Test performed by: [id number] Meter #: [id number] Ordering Provider: FRANCK TURNER Report Released Date/Time: Sep 04, 2024 09:36 PM Reporting Lab: [address] [address] Performing Lab: [address] [address] GLUCOSE-HAND MONITOR 123 mg/dL H Sep 04, 2024 04:41 PM [facility] GLUCOSE-HAND MONITOR CAPILLARY Specime n Type: CAPILLARY Comment: AAMIR RN notified Test performed by: [id number] Meter #: [id number] Ordering Provider: FRANCK TURNER Report Released Date/Time: Sep 04, 2024 05:03 PM Reporting Lab: [address] [address] Performing Lab: [address] [address] GLUCOSE-HAND MONITOR 118 mg/dL H Sep 04, 2024 12:36 PM [facility] GLUCOSE-HAND MONITOR CAPILLARY Specime n Type: CAPILLARY Comment: AAMIR RN notified Test performed by: [id number] Meter #: [id number] Ordering Provider: FRANCK TURNER Report Released Date/Time: Sep 04, 2024 12:53 PM Reporting Lab: [address] [address] Performing Lab: [place] [address] GLUCOSE-HAND MONITOR 129 mg/dL H 71-99 Sep 04, 2024 12:03 PM [facility] RESPIRATORY VIRUS PANEL (BIOFIRE) NASOPHARYN X Specimen Type: NASOPHARYNX Comment: ~For Test: RESPIRATORY VIRUS PANEL (BIOFIRE) ~ORDER READ BACK TO: FRANCK TURNER 09/04/24@11:30 Ordering Provider: FRANCK TURNER Report Released Date/Time: Sep 04, 2024 11:33 AM Reporting Lab: [place] [phone] Performing Lab: [place] [address] ADENOVIRUS (BIOFIRE) Not Detected -Not D etected [...] -Not Detected Sep 04, 2024 06:55 AM [facility] MAGNESIUM PLASMA Specimen Type: PLASM A [...] AM Reporting Lab: [place] [facility] [address] [facility] [address] Performing Lab: [place] [address] [facility] [address] MAGNESIUM 1.8 mg/dL 1.6-2.6 Sep 04, 2024 06:55 AM [facility] PANEL 1 PLASMA Specimen Type: PLASM [...] Sep 03, 2024 11:10 AM Reporting Lab: [address] [address] Performing Lab: [address] CREATININE 0.75 mg/dL 0.72-1.25 UREA NITROGEN 13 mg/dL 9-25 GLUCOSE 105 mg/dL H 74-100 SODIUM 128 mmol/L L 136-145 POTASSIUM 3.9 mmol/L 3.5-5.1 CHLORIDE 99 mmol/L 98-107 CO2 21 mmol/L L 22-29 CALCIUM 8.0 mg/dL L 8.4-10.2 ANION GAP 8 meq/L 3-19 eGFR (CKD-EPI) >90 Sep 04, 2024 06:02 AM [facility] GLUCOSE-HAND MONITOR CAPILLARY Specime n Type: CAPILLARY Comment: Test performed by: [id number] Meter #: [id number] Ordering Provider: FRANCK TURNER Report Released Date/Time: Sep 04, 2024 06:28 AM Reporting Lab: [address] Performing Lab: [address] GLUCOSE-HAND MONITOR 114 mg/dL H 71-99 Sep 03, 2024 05:19 PM [facility] GLUCOSE-HAND MONITOR CAPILLARY Specime n Type: CAPILLARY Comment: Test performed by: [id number] Meter #: [id number] Ordering Provider: FRANCK TURNER Report Released Date/Time: Sep 03, 2024 05:37 PM Reporting Lab: [address] Performing Lab: [address] [address] GLUCOSE-HAND MONITOR 124 mg/dL H 71-99 Sep 03, 2024 04:41 PM [facility] GLUCOSE-HAND MONITOR CAPILLARY Specime n Type: CAPILLARY Comment: Test performed by: [id number] Meter #: [id number] Ordering Provider: FRANCK TURNER Report Released Date/Time: Sep 03, 2024 06:09 PM Reporting Lab: [address] [address] Performing Lab: [address] [address] GLUCOSE-HAND MONITOR 112 mg/dL H 71-99 Sep 03, 2024 01:35 PM [facility] CREATININE URINE Specimen Type: URINE Comment: ~Altered mental status with no identifiable cause Ordering Provider: FRANCK TURNER Report Released Date/Time: Sep 02, 2024 04:44 PM Reporting Lab: [address] [address] Performing Lab: [place] [phone] CREATININE 150.9 mg/dL Sep 03, 2024 01:35 PM [facility] URINE LYTES URINE Specimen Type : URINE Comment: ~Altered mental status with no identifiable cause Ordering Provider: FRANCK TURNER Report Released Date/Time: Sep 02, 2024 04:44 PM Reporting Lab: [address] [address] Performing Lab: [address] [address] SODIUM 130 mmol/L POTASSIUM 47.6 mmol/L CHLORIDE 137 mmol/L Sep 03, 2024 01:35 PM [facility] URINALYSIS WITH REFLEX TO CULTURE URINE Specimen Type: URINE Comment: ~Altered mental status with no identifiable cause Ordering Provider: FRANCK TURNER Report Released Date/Time: Sep 02, 2024 04:44 PM Reporting Lab: [address] [address] Performing Lab: [address] [address] URINE COLOR Yellow Colorless-Yellow APPEARANCE CLOUDY H [...] H 0-28 Sep 03, 2024 01:35 PM [facility] UREA NITROGEN URINE Specimen Type : URINE Comment: ~Altered mental status with no identifiable cause Ordering Provider: FRANCK TURNER Report Released Date/Time: Sep 02, 2024 04:44 PM Reporting Lab: [address] [address] Performing Lab: [address] [address] UREA NITROGEN 320 mg/dL Sep 03, 2024 01:35 PM [facility] OSMOLALITY URINE Specimen Type: URINE Comment: ~Altered mental status with no identifiable cause Ordering Provider: FRANCK TURNER Report Released Date/Time: Sep 02, 2024 04:44 PM Reporting Lab: [address] [address] Performing Lab: [place] [phone] OSMOLALITY 522 mosm/kg 38-1400 Sep 03, 2024 11:58 AM [facility] GLUCOSE-HAND MONITOR CAPILLARY Specime n Type: CAPILLARY Comment: AAMIR RN notified Test performed by: [id number] Meter #: [id number] Ordering Provider: FRANCK TURNER Report Released Date/Time: Sep 03, 2024 12:15 PM Reporting Lab: [address] [address] Performing Lab: [address] [address] GLUCOSE-HAND MONITOR 135 mg/dL H -Sep 03, 2024 07:09 AM [facility] GLUCOSE-HAND MONITOR CAPILLARY Specime n Type: CAPILLARY Comment: Test performed by: [id number] Meter #: [id number] Ordering Provider: FRANCK TURNER Report Released Date/Time: Sep 03, 2024 07:26 AM Reporting Lab: [address] [address] Performing Lab: [address] [address] GLUCOSE-HAND MONITOR 120 mg/dL H -Sep 03, 2024 07:05 AM [facility] CBC/PLT BLOOD Specimen Type: BLOOD No comment entered. Ordering Provider: FRANCK TURNER Report Released Date/Time: Sep 02, 2024 04:29 PM Reporting Lab: [address] [address] Performing Lab: [address] [address] WBC 6.9 10*3/uL 5.0-10.0 RBC 3.48 10*6/uL L 4.6-6.2 HGB 9.5 g/dL L 14.0-18.0 HCT 29.1 L 42.0-52.0 MCV 83.6 fL 80.0-94.0 MCH 27.3 pg 27.0-31.0 MCHC 32.6 g/dL 32.0-36.0 PLT 258 10*3/uL 150-450 MPV 10.3 fL 9.0-13.1 RDW 14.8 11.0-16.0 NRBC 0.0 0.0-0.0 Sep 03, 2024 07:05 AM [facility] MAGNESIUM PLASMA Specimen Type: PLASM A [...] Sep 02, 2024 04:29 PM Reporting Lab: [address] [address] Performing Lab: [address] [address] MAGNESIUM 1.7 mg/dL 1.6-2.6 Sep 03, 2024 07:05 AM [facility] PANEL 1 PLASMA Specimen Type: PLASM [...] Sep 02, 2024 04:29 PM Reporting Lab: [address] [address] Performing Lab: [address] [address] CREATININE 0.82 mg/dL 0.72-1.25 UREA NITROGEN 12 mg/dL 9-25 GLUCOSE 109 mg/dL H 74-100 SODIUM 129 mmol/L L 136-145 POTASSIUM 4.2 mmol/L 3.5-5.1 CHLORIDE 99 mmol/L 98-107 CO2 21 mmol/L L 22-29 CALCIUM 8.1 mg/dL L 8.4-10.2 ANION GAP 9 meq/L 3-19 eGFR (CKD-EPI) 90 Sep 03, 2024 07:05 AM [facility] GLYCOHEMOGLOBIN BLOOD Specimen Type: BLOOD Comment: Prediabetes: 5.7%-6.4% Diabetes: >= 6.5% [place] guidelines for A1c [...] 8.73 and 9.27. Ref: https://ngsp.org/CAPdata.asp. The in-house Page Mage-ViaCLIX D-100 analyzer has a historical CV <= 2%. Contact the laboratory for further performance characteristics of this assay. Ordering Provider: FRANCK TURNER Report Released Date/Time: Sep 02, 2024 04:29 PM Reporting Lab: [address] [address] Performing Lab: [place] [phone] GLYCOHEMOGLOBIN 5.6 4.4-5.6 Sep 03, 2024 07:05 AM [facility] OSMOLALITY SERUM Specimen Type: SERUM No comment entered. Ordering Provider: FRANCK TURNER Report Released Date/Time: Sep 02, 2024 04:44 PM Reporting Lab: [address] [address] Performing Lab: [address] [address] OSMOLALITY 271 mosm/kg L 280-300 Sep 02, 2024 08:15 PM [facility] GLUCOSE-HAND MONITOR CAPILLARY Specime n Type: CAPILLARY Comment: AAMIR DEXTER notified Test performed by: [id number] Meter #: [id number] Ordering Provider: FRANCK TURNER Report Released Date/Time: Sep 02, 2024 08:57 PM Reporting Lab: [address] [address] Performing Lab: [address] [address] GLUCOSE-HAND MONITOR 126 mg/dL H 71-99 Sep 02, 2024 06:10 PM [facility] MRSA SURVL NARES DNA NARES Specime [...] Sep 02, 2024 05:12 PM Reporting Lab: [address] [address] Performing Lab: [address] [address] MRSA SURVL NARES DNA Negative Negative Sep 02, 2024 05:36 PM [facility] GLUCOSE-HAND MONITOR CAPILLARY Specime n Type: CAPILLARY Comment: Test performed by: [id number] Meter #: [id number] Ordering Provider: FRANCK TURNER Report Released Date/Time: Sep 02, 2024 05:53 PM Reporting Lab: [address] [address] Performing Lab: [address] [address] GLUCOSE-HAND MONITOR 127 mg/dL H 71-99 Aug 29, 2024 10:04 PM [facility] URINALYSIS WITH REFLEX TO CULTURE URINE Specimen Type: URINE Comment: ~For Test: URINALYSIS WITH REFLEX TO CULTURE ~REORDER Ordering Provider: FELISA COLE Report Released Date/Time: Aug 29, 2024 09:36 PM Reporting Lab: [address] [address] Performing Lab: [address] [address] URINE COLOR Yellow Colorless-Yellow APPEARANCE Clear Clear [...] Aug 29, 2024 07:55 PM Reporting Lab: [address] [address] Performing Lab: [address] [address] HIGH SENSITIVITY TROPONIN I 7 4-35 Aug 29, 2024 08:32 PM [facility] CBC/PLT BLOOD Specimen Type: BLOOD No comment entered. Ordering Provider: FELISA COLE Report Released Date/Time: Aug 29, 2024 07:55 PM Reporting Lab: [address] [address] Performing Lab: [address] [address] WBC 11.2 10*3/uL H 5.0-10.0 RBC 3.97 [...] Aug 29, 2024 07:55 PM Reporting Lab: [address] [address] Performing Lab: [address] [address] CREATININE 0.85 mg/dL 0.72-1.25 UREA NITROGEN 15 [...] 18 /min 96 % 0 [place] [facility] Sep 08, 2024 09:03 PM 0 [place] [facility] Sep 08, 2024 03:46 PM 97.7 F 76 /min 148/70 mm[Hg] 16 /min 96 % 0 [place] [facility] Sep 08, 2024 11:42 AM 97.4 F 67 /min 125/69 mm[Hg] 92 % [place] [facility] Sep 08, 2024 09:30 AM 0 [place] [facility] Advance Directives: All historical and current [...] 08, 2024 ADVANCE DIRECTIVE DISCUSSION [facility] [facility] Radiology Reports: +/- 30 [...] BRAIN W & W/O: LUIS MANUEL PERDOMO [id number] -1945 M Exm Date: SEP 06, 2024@13:40 Req Phys: FRANCK TURNER Merged With [facility] Loc: 5-MED/TEL/09-06-2024@19:09 Img Loc: [facility] Service: [place] [address] (Case [id number] COMPLETE) MRI BRAIN W & W/O (MRI Detailed) CPT:79257 Contrast Media : Gadolinium Reason for Study: SEE CLINICAL HISTORY Pharmaceutical: GADOTERIDOL 279.3MG/ML 20ML INJ, 19ml Clinical History: MRI Screening (Required): IMPLANTED DEVICE DOCUMENTATION IMPLANTED DEVICE DOCUMENTATION NOT FOUND Does the [place] have any Cardiac Implants? None Does the have any implanted stimulators? None Does the [place] have cochlear implants? No Does the have Cerebral aneurysm clip(s)? I don't know Does the [place] have any shrapnel? I don't know If [...] 06, 2024 Date Verified: SEP 06, 2024 Striker Off E-Sig: Report: MRI brain without and with [...] Staff: ARCENIO LEYVA, Staff Radiologist Verified by executive director sheltered workshop for ARCENIO LEYVA /ARCENIO AVILA-[facility] Sep 06, 2024 01:40 PM MRI C SPINE W & W/ O CONTRAST(FURTHER SEQUENCES): LUIS MANUEL PERDOMO [id number] -1945 M Exm Date: SEP 06, 2024@13:40 Req Phys: FRANCK TURNER Pat Loc: 5-MED/TEL/09-07-2024@06:42 Img Loc: [facility] Service: [place] [address] (Case [id number] COMPLETE) MRI C SPINE W & W/O CONTRAST(FURT(MRI Detailed) CPT:92749 Contrast Media : Gadolinium Reason for Study: SEE CLINICAL HISTORY Pharmaceutical: GADOTERIDOL 279.3MG/ML 20ML INJ, 19ml Clinical History: STATUS OF PLAIN FILMS:Not performed (Provide justification for MR W/O prior plain films below.) MRI for MS MRI Screening (Required): IMPLANTED DEVICE DOCUMENTATION IMPLANTED DEVICE DOCUMENTATION NOT FOUND Does the [place] have any Cardiac Implants? None Does the [place] have any implanted stimulators? None Does the have cochlear implants? No Does the [place] have Cerebral aneurysm clip(s)? I don't know Does the [place] have any shrapnel? I don't know If [...] 07, 2024 Date Verified: SEP 07, 2024 Striker Off E-Sig: Report: EXAMINATION: MRI OF THE CERVICAL [...] Interpreting Staff: HUANG TAI, Radiologist Verified by executive director sheltered workshop for HUANG TAI /HUANG WHEATLEY-Sav [facility] Sep 03, 2024 10:45 AM CHEST SINGLE(1) EW: LUIS MANUEL PERDOMO [id number] -1945 M Exm Date: SEP 03, 2024@10:45 Req Phys: FRANCK TURNER Pat Loc: 5-MED/TEL/09-03-2024@10:56 Img Loc: [facility] Service: [place] [address] (Case [id number] COMPLETE)CHEST SINGLE(1) VIEW (RAD Detailed) CPT:15500 Proc Modifiers : PORTABLE EXAM Reason for Study: Eval volume status Clinical History: Report Status: Verified Date Reported: SEP 03, 2024 Date Verified: SEP 03, 2024 Striker Off E-Sig: Report: EXAMINATION: SINGLE VIEW CHEST CLINICAL [...] Interpreting Staff: HUANG TAI, Radiologist Verified by executive director sheltered workshop for HUANG TAI /HUANG WHEATLEY-CDD [facility] Aug 29, 2024 08:[address] HEAD W/O CONT: LUIS MANUEL PERDOMO [id number] -1945 M Exm Date: AUG 29, 2024@20:28 Req Phys: FELISA COLE Loc: ED/4P-12A (Req'g Loc) Img Loc: CT SCAN Service: Unknown [place] [id number] (Case [id number] COMPLETE) CT HEAD W/O CONT (CT Detailed) CPT:63501 Reason for Study: SEE CLINICAL HISTORY Clinical History: REASON FOR SEND OUT: ATTENDING PHYSICIAN NAME: New transient neurological s/s - suspected TIA HISTORY/REASON FOR EXAM: confusion Report Status: Verified Date Reported: AUG 29, 2024 Date Verified: AUG 29, 2024 Striker Off E-Sig: Report: HISTORY confusion COMPARISON No prior [...] ABDIRAHMAN CROW, Staff Physician Verified by executive director sheltered workshop for ABDIRAHMAN CROW /ABDIRAHMAN ROJAS-[facility] Pathology Reports: +/- 30 days [...] PORT: Reporting Lab: [facility] [CLIA# [id number]] [address] [place] [id number] Accession [UID]: [id number] [[id number]] Received: Sep 03, 2024@14:02 Collection sample: URINE, [...] Report Performed By: [facility] [CLIA# [id number]] [address] [place] [id number] BHARATI,MAGDY D [facility] Sep 02, 2024 06:00 PM LR MICROBIOLOGY RE PORT: Reporting Lab: [facility] [CLIA# [id number]] [address] [place] [address] Accession [UID]: [id number] [[id number]] Received: Sep 02, 2024@18:07 Collection sample: BLD CULTURE BOTTLES Collection date: Sep 02, 2024 18:00 Site/Specimen: BLOOD Provider: FRANCK TURNER Comment on specimen: L HAND Test(s) ordered: CULTURE, BLOOD................ completed: Sep 08, 2024 * BACTERIOLOGY FINAL REPORT => Sep 08, 2024 08:25 TECH CODE: [id number] Bacteriology Remark(s): Blood culture status=NO GROWTH (unless notified otherwise) 09/03/2024 AEROBIC: NO GROWTH ANAEROBIC: NO GROWTH =--=--=--=--=--=--=--=--=--=-- =--=--=--=--=--=--=--=--=--=-- =--=--=--=--=--=-- Performing Laboratory: Bacteriology Report Performed By: [facility] [CLIA# [id number]] [address] [place], [place] [id number] MAGDY CALABRESE [facility] Aug 29, 2024 10:18 PM LR MICROBIOLOGY RE PORT: Reporting Lab: [facility] [CLIA# [id number]] [address] [place], [place] [id number] Accession [UID]: [id number] [[id number]] Received: Aug 29, 2024@22:18 Collection sample: URINE, CLEAN CATCH Collection date: Aug 29, 2024 22:18 Site/Specimen: URINE Provider: FELISA COLE Test(s) ordered: CULTURE, URINE................ completed: Aug 31, 2024 09:51 * BACTERIOLOGY FINAL REPORT => Aug 31, 2024 09:51 TECH CODE: [id number] Bacteriology Remark(s): NO GROWTH 08/30/2024 <10,000 CFU/ML. 08/31/2024 =--=--=--=--=--=--=--=--=--=-- =--=--=--=--=--=--=--=--=--=-- =--=--=--=--=--=-- Performing Laboratory: Bacteriology Report Performed By: [facility] [CLIA# [id number]] [address] [place] [address] MAGDY CALABRESE-Sav [facility]
--- OUTSIDE RECORDS SUMMARY | 2024-09-08 12:50 | XMS_ITS ---
[place] DAILY HOSPITALIZATION DATA [facility] Encounter Summary Created on: September 22, 2024 LUIS MANUEL PERDOMO : 1945 Sex: Male Author Name [facility] Organization [facility] Address [address] [place] [address] Care Team Providers Care Orthotic Fitter Name Role Phone YULISSA HENDERSON Primary Care [...] PLAN F Mar 24, 2014 PLAN F [id number] LUIS MANUEL PERDOMO PATIENT [facility] [place] BLUEC[facility] PREFERRED PROVIDER ORGANIZAT ION (PPO) [facility] SLE Sep 21, 2012 [id number] LUIS MANUEL PERDOMO PATIENT [employer] ([id number]) PRESCRIPT ION WL3A Sep 21, 2012 WL3A [id number] [phone] LUIS MANUEL PERDOMO PATIENT MEDICARE (WNR) MEDICARE (M) PART B Sep 21, 2012 PART B [id number] NOEMI PERDOMO PATIENT MEDICARE (WNR) MEDICARE (M) PART A Jan 22, 2011 PART A [id number] LEANNE, NOEMI PATIENT MEDICARE PART D (WNR) MEDICARE (M) PART D Mar 24, 2014 PART D [id number] LUIS MANUEL PERDOMO PATIENT Selected Encounter This section includes the information on record at [place] for the Encounter. Date/Time Encounter Type Encounter Description Reason Pro vider Source Sep 08, 2024 04:50 PM Inpatient Visit DAILY HOSPITALIZATION DATA [facility] Encounter Template Text not used by SD Plan of Treatment: Future Appointments (+ 6 months) and Future Tests (+/- 45 days) The Plan of Treatment section includes future care activities for the [facility] This section includes future appointments [...] 13, 2024 08:00 AM AMBULATORY - NONE [facility] Sep 30, 2024 01:30 PM [...] of theEncounter. The data comes from all [facility] facilities. Test Date/Time Test Type Test Details Facility Name Sep 13, 2024 01:33 PM Consult Order [facility] SKILL[facility] HOME CARE Cons [employer] Coll[employer] Repair Instructor's Choice [facility] Lab Results: +/- [...] Specimen Type: CAPILLARY Comment: Test performed by: [id number] Meter #: [id number] Ordering Provider: FRANCK TURNER Report Released Date/Time: Sep 09, 2024 12:33 PM Reporting Lab: [address] [address] Performing Lab: [address] [address] GLUCOSE-HAND MONITOR 116 mg/dL H Sep 09, 2024 06:07 AM [facility] GLUCOSE-HAND MONITOR CAPILLARY Specime n Type: CAPILLARY Comment: Test performed by: [id number] Meter #: [id number] Ordering Provider: FRANCK TURNER Report Released Date/Time: Sep 09, 2024 08:17 AM Reporting Lab: [address] [address] Performing Lab: [address] [address] GLUCOSE-HAND MONITOR 112 mg/dL H Sep 08, 2024 09:13 PM [facility] GLUCOSE-HAND MONITOR CAPILLARY Specime n Type: CAPILLARY Comment: Test performed by: [id number] Meter #: [id number] Ordering Provider: FRANCK TURNER Report Released Date/Time: Sep 08, 2024 09:31 PM Reporting Lab: [address] [address] Performing Lab: [address] [address] GLUCOSE-HAND MONITOR 107 mg/dL H Sep 08, 2024 03:49 PM [facility] GLUCOSE-HAND MONITOR CAPILLARY Specime n Type: CAPILLARY Comment: AAMIR RN notified Test performed by: [id number] Meter #: [id number] Ordering Provider: FRANCK TURNER Report Released Date/Time: Sep 08, 2024 04:33 PM Reporting Lab: [address] [address] Performing Lab: [address] [address] GLUCOSE-HAND MONITOR 162 mg/dL H Sep 08, 2024 11:43 AM [facility] GLUCOSE-HAND MONITOR CAPILLARY Specime n Type: CAPILLARY Comment: AAMIR RN notified Test performed by: [id number] Meter #: [id number] Ordering Provider: FRANCK TURNER Report Released Date/Time: Sep 08, 2024 12:03 PM Reporting Lab: [address] [address] Performing Lab: [address] [address] GLUCOSE-HAND MONITOR 133 mg/dL H Sep 08, 2024 06:13 AM [facility] GLUCOSE-HAND MONITOR CAPILLARY Specime n Type: CAPILLARY Comment: Test performed by: [id number] Meter #: [id number] Ordering Provider: FRANCK TURNER Report Released Date/Time: Sep 08, 2024 06:46 AM Reporting Lab: [address] [address] Performing Lab: [address] [address] GLUCOSE-HAND MONITOR 104 mg/dL H Sep 07, 2024 07:59 PM [facility] GLUCOSE-HAND MONITOR CAPILLARY Specime n Type: CAPILLARY Comment: Test performed by: [id number] Meter #: [id number] Ordering Provider: FRANCK TURNER Report Released Date/Time: Sep 07, 2024 09:05 PM Reporting Lab: [address] [address] Performing Lab: [address] [address] GLUCOSE-HAND MONITOR 107 mg/dL H Sep 07, 2024 04:39 PM [facility] GLUCOSE-HAND MONITOR CAPILLARY Specime n Type: CAPILLARY Comment: Test performed by: [id number] Meter #: [id number] Ordering Provider: FRANCK TURNER Report Released Date/Time: Sep 07, 2024 05:09 PM Reporting Lab: [address] [address] Performing Lab: [address] [address] GLUCOSE-HAND MONITOR 105 mg/dL H Sep 07, 2024 11:41 AM [facility] GLUCOSE-HAND MONITOR CAPILLARY Specime n Type: CAPILLARY Comment: Test performed by: [id number] Meter #: [id number] Ordering Provider: FRANCK TURNER Report Released Date/Time: Sep 07, 2024 12:41 PM Reporting Lab: [address] [address] Performing Lab: [address] [address] GLUCOSE-HAND MONITOR 144 mg/dL H Sep 07, 2024 05:56 AM [facility] GLUCOSE-HAND MONITOR CAPILLARY Specime n Type: CAPILLARY Comment: Test performed by: [id number] Meter #: [id number] Ordering Provider: FRANCK TURNER Report Released Date/Time: Sep 07, 2024 06:31 AM Reporting Lab: [address] [address] Performing Lab: [address] [address] GLUCOSE-HAND MONITOR 96 mg/dL Sep 06, 2024 08:10 PM [facility] GLUCOSE-HAND MONITOR CAPILLARY Specime n Type: CAPILLARY Comment: Test performed by: [id number] Meter #: [id number] Ordering Provider: FRANCK TURNER Report Released Date/Time: Sep 06, 2024 08:52 PM Reporting Lab: [address] [address] Performing Lab: [address] [address] GLUCOSE-HAND MONITOR 124 mg/dL H Sep 06, 2024 04:27 PM [facility] GLUCOSE-HAND MONITOR CAPILLARY Specime n Type: CAPILLARY Comment: Test performed by: [id number] Meter #: [id number] Ordering Provider: FRANCK TURNER Report Released Date/Time: Sep 06, 2024 05:15 PM Reporting Lab: [address] [address] Performing Lab: [address] [address] GLUCOSE-HAND MONITOR 107 mg/dL H Sep 06, 2024 12:12 PM [facility] GLUCOSE-HAND MONITOR CAPILLARY Specime n Type: CAPILLARY Comment: Test performed by: [id number] Meter #: [id number] Ordering Provider: FRANCK TURNER Report Released Date/Time: Sep 06, 2024 12:29 PM Reporting Lab: [address] [address] Performing Lab: [address] [address] GLUCOSE-HAND MONITOR 181 mg/dL H -Sep 06, 2024 06:13 AM [facility] GLUCOSE-HAND MONITOR CAPILLARY Specime n Type: CAPILLARY Comment: Test performed by: [id number] Meter #: [id number] Ordering Provider: FRANCK TURNER Report Released Date/Time: Sep 06, 2024 06:36 AM Reporting Lab: [address] [address] Performing Lab: [address] [address] GLUCOSE-HAND MONITOR 102 mg/dL H Sep 05, 2024 08:47 PM [facility] GLUCOSE-HAND MONITOR CAPILLARY Specime n Type: CAPILLARY Comment: Test performed by: [id number] Meter #: [id number] Ordering Provider: FRANCK TURNER Report Released Date/Time: Sep 06, 2024 02:13 AM Reporting Lab: [address] [address] Performing Lab: [address] [address] GLUCOSE-HAND MONITOR 103 mg/dL H Sep 05, 2024 04:40 PM [facility] GLUCOSE-HAND MONITOR CAPILLARY Specime n Type: CAPILLARY Comment: AAMIR RN notified Test performed by: [id number] Meter #: [id number] Ordering Provider: FRANCK TURNER Report Released Date/Time: Sep 05, 2024 05:11 PM Reporting Lab: [address] [address] Performing Lab: [address] [address] GLUCOSE-HAND MONITOR 113 mg/dL H Sep 05, 2024 12:06 PM [facility] GLUCOSE-HAND MONITOR CAPILLARY Specime n Type: CAPILLARY Comment: Test performed by: [id number] Meter #: [id number] Ordering Provider: FRANCK TURNER Report Released Date/Time: Sep 05, 2024 12:23 PM Reporting Lab: [address] [address] Performing Lab: [address] [address] GLUCOSE-HAND MONITOR 115 mg/dL H Sep 05, 2024 06:26 AM [facility] GLUCOSE-HAND MONITOR CAPILLARY Specime n Type: CAPILLARY Comment: AAMIR Correction Dose Test performed by: [id number] Meter #: [id number] Ordering Provider: FRANCK TURNER Report Released Date/Time: Sep 05, 2024 06:43 AM Reporting Lab: [address] [address] Performing Lab: [address] [address] GLUCOSE-HAND MONITOR 111 mg/dL H Sep 04, 2024 08:59 PM [facility] GLUCOSE-HAND MONITOR CAPILLARY Specime n Type: CAPILLARY Comment: AAMIR RN notified Test performed by: [id number] Meter #: [id number] Ordering Provider: FRANCK TURNER Report Released Date/Time: Sep 04, 2024 09:36 PM Reporting Lab: [address] [address] Performing Lab: [address] [address] GLUCOSE-HAND MONITOR 123 mg/dL H Sep 04, 2024 04:41 PM [facility] GLUCOSE-HAND MONITOR CAPILLARY Specime n Type: CAPILLARY Comment: AAMIR RN notified Test performed by: [id number] Meter #: [id number] Ordering Provider: FRANCK TURNER Report Released Date/Time: Sep 04, 2024 05:03 PM Reporting Lab: [address] [address] Performing Lab: [address] [address] GLUCOSE-HAND MONITOR 118 mg/dL H Sep 04, 2024 12:36 PM [facility] GLUCOSE-HAND MONITOR CAPILLARY Specime n Type: CAPILLARY Comment: AAMIR RN notified Test performed by: [id number] Meter #: [id number] Ordering Provider: FRANCK TURNER Report Released Date/Time: Sep 04, 2024 12:53 PM Reporting Lab: [address] [address] Performing Lab: [place] [address] GLUCOSE-HAND MONITOR 129 mg/dL H 71-99 Sep 04, 2024 12:03 PM [facility] RESPIRATORY VIRUS PANEL (BIOFIRE) NASOPHARYN X Specimen Type: NASOPHARYNX Comment: ~For Test: RESPIRATORY VIRUS PANEL (BIOFIRE) ~ORDER READ BACK TO: FRANCK TURNER 09/04/24@11:30 Ordering Provider: FRANCK TURNER Report Released Date/Time: Sep 04, 2024 11:33 AM Reporting Lab: [place] [phone] Performing Lab: [place] [phone] ADENOVIRUS (BIOFIRE) Not Detected -Not D etected [...] DALIA [facility] [address] [facility] [address] Performing Lab: [place] [address] [facility] [address] MAGNESIUM 1.8 mg/dL 1.6-2.6 Sep 04, 2024 [...] Sep 03, 2024 11:10 AM Reporting Lab: [id number] [address] Performing Lab: [address] CREATININE 0.75 mg/dL 0.72-1.25 UREA NITROGEN [...] n Type: CAPILLARY Comment: Test performed by: [id number] Meter #: [id number] Ordering Provider: FRANCK TURNER Report Released Date/Time: Sep 04, 2024 06:28 AM Reporting Lab: [address] Performing Lab: [address] GLUCOSE-HAND MONITOR 114 mg/dL H 71-99 Sep 03, 2024 05:19 PM [facility] GLUCOSE-HAND MONITOR CAPILLARY Specime n Type: CAPILLARY Comment: Test performed by: [id number] Meter #: [id number] Ordering Provider: FRANCK TURNER Report Released Date/Time: Sep 03, 2024 05:37 PM Reporting Lab: [address] Performing Lab: [address] [address] GLUCOSE-HAND MONITOR 124 mg/dL H 71-99 Sep 03, 2024 04:41 PM [facility] GLUCOSE-HAND MONITOR CAPILLARY Specime n Type: CAPILLARY Comment: Test performed by: [id number] Meter #: [id number] Ordering Provider: FRANCK TURNER Report Released Date/Time: Sep 03, 2024 06:09 PM Reporting Lab: [address] [address] Performing Lab: [address] [address] GLUCOSE-HAND MONITOR 112 mg/dL H 71-99 Sep 03, 2024 01:35 PM [facility] URINE LYTES URINE Specimen Type : URINE Comment: ~Altered mental status with no identifiable cause Ordering Provider: FRANCK TURNER Report Released Date/Time: Sep 02, 2024 04:44 PM Reporting Lab: [address] [address] Performing Lab: [address] [address] SODIUM 130 mmol/L POTASSIUM 47.6 mmol/L CHLORIDE 137 mmol/L Sep 03, 2024 01:35 PM [facility] CREATININE URINE Specimen Type: URINE Comment: ~Altered mental status with no identifiable cause Ordering Provider: FRANCK TURNER Report Released Date/Time: Sep 02, 2024 04:44 PM Reporting Lab: [address] [address] Performing Lab: [address] [address] CREATININE 150.9 mg/dL Sep 03, 2024 01:35 PM [facility] OSMOLALITY URINE Specimen Type: URINE Comment: ~Altered mental status with no identifiable cause Ordering Provider: FRANCK TURNER Report Released Date/Time: Sep 02, 2024 04:44 PM Reporting Lab: [address] [address] Performing Lab: [address] [address] OSMOLALITY 522 mosm/kg 38-1400 Sep 03, 2024 01:35 PM [facility] URINALYSIS WITH REFLEX TO CULTURE URINE Specimen Type: URINE Comment: ~Altered mental status with no identifiable cause Ordering Provider: FRANCK TURNER Report Released Date/Time: Sep 02, 2024 04:44 PM Reporting Lab: [address] [address] Performing Lab: [address] [address] URINE COLOR Yellow Colorless-Yellow APPEARANCE CLOUDY H [...] 2024 04:44 PM Reporting Lab: [place] [phone] Performing Lab: [place] [phone] UREA NITROGEN 320 mg/dL Sep 03, 2024 11:58 AM [facility] GLUCOSE-HAND MONITOR CAPILLARY Specime n Type: CAPILLARY Comment: AAMIR RN notified Test performed by: [id number] Meter #: [id number] Ordering Provider: FRANCK TURNER Report Released Date/Time: Sep 03, 2024 12:15 PM Reporting Lab: [place] [phone] Performing Lab: [place] [phone] GLUCOSE-HAND MONITOR 135 mg/dL H Sep 03, 2024 07:09 AM [facility] GLUCOSE-HAND MONITOR CAPILLARY Specime n Type: CAPILLARY Comment: Test performed by: [id number] Meter #: [id number] Ordering Provider: FRANCK TURNER Report Released Date/Time: Sep 03, 2024 07:26 AM Reporting Lab: [address] [address] Performing Lab: [place] [phone] GLUCOSE-HAND MONITOR 120 mg/dL H Sep 03, 2024 07:05 AM [facility] CBC/PLT BLOOD Specimen Type: BLOOD No comment entered. Ordering Provider: FRANCK TURNER Report Released Date/Time: Sep 02, 2024 04:29 PM Reporting Lab: [address] [address] Performing Lab: [address] [address] WBC 6.9 10*3/uL 5.0-10.0 RBC 3.48 10*6/uL [...] 02, 2024 04:29 PM Reporting Lab: [address] [address] Performing Lab: [address] [address] MAGNESIUM 1.7 mg/dL 1.6-2.6 Sep 03, 2024 [...] 02, 2024 04:29 PM Reporting Lab: [address] [address] Performing Lab: [address] [address] CREATININE 0.82 mg/dL 0.72-1.25 UREA NITROGEN 12 [...] BLOOD Comment: Prediabetes: 5.7%-6.4% Diabetes: >= 6.5% [facility] guidelines for A1c interpretation: Glycemic control targets are based on Shared Decision Making between clinicians and patients. Criteria used to establish an A1c target recommendation can be found at https://www.wa.gov/qualityandpatientsafety/ and include the use of result accuracy [...] 8.73 and 9.27. Ref: https://ngsp.org/CAPdata.asp. The in-house [employer] D-100 analyzer has a historical CV <= 2%. Contact the laboratory for further performance characteristics of this assay. Ordering Provider: FRANCK TURNER Report Released Date/Time: Sep 02, 2024 04:29 PM Reporting Lab: [address] [address] Performing Lab: [place] [phone] GLYCOHEMOGLOBIN 5.6 4.4-5.6 Sep 03, 2024 07:05 AM [facility] OSMOLALITY SERUM Specimen Type: SERUM No comment entered. Ordering Provider: FRANCK TURNER Report Released Date/Time: Sep 02, 2024 04:44 PM Reporting Lab: [address] [address] Performing Lab: [address] [address] OSMOLALITY 271 mosm/kg L 280-300 Sep 02, 2024 08:15 PM [facility] GLUCOSE-HAND MONITOR CAPILLARY Specime n Type: CAPILLARY Comment: AAMIR DEXTER notified Test performed by: [id number] Meter #: [id number] Ordering Provider: FRANCK TURNER Report Released Date/Time: Sep 02, 2024 08:57 PM Reporting Lab: [address] [address] Performing Lab: [address] [address] GLUCOSE-HAND MONITOR 126 mg/dL H 71-99 Sep [...] 02, 2024 05:12 PM Reporting Lab: [address] [address] Performing Lab: [address] [address] MRSA SURVL NARES DNA Negative Negative Sep 02, 2024 05:36 PM [facility] GLUCOSE-HAND MONITOR CAPILLARY Specime n Type: CAPILLARY Comment: Test performed by: [id number] Meter #: [id number] Ordering Provider: FRANCK TURNER Report Released Date/Time: Sep 02, 2024 05:53 PM Reporting Lab: [address] [address] Performing Lab: [address] [address] GLUCOSE-HAND MONITOR 127 mg/dL H 71-99 Aug 29, 2024 10:04 PM [facility] URINALYSIS WITH REFLEX TO CULTURE URINE Specimen Type: URINE Comment: ~For Test: URINALYSIS WITH REFLEX TO CULTURE ~REORDER Ordering Provider: FELISA COLE Report Released Date/Time: Aug 29, 2024 09:36 PM Reporting Lab: [address] [address] Performing Lab: [address] [address] URINE COLOR Yellow Colorless-Yellow APPEARANCE Clear Clear [...] 29, 2024 07:55 PM Reporting Lab: [address] [address] Performing Lab: [address] [address] HIGH SENSITIVITY TROPONIN I 7 4-35 Aug 29, 2024 08:32 PM [facility] CBC/PLT BLOOD Specimen Type: BLOOD No comment entered. Ordering Provider: FELISA COLE Report Released Date/Time: Aug 29, 2024 07:55 PM Reporting Lab: [address] [address] Performing Lab: [address] [address] WBC 11.2 10*3/uL H 5.0-10.0 RBC 3.97 [...] 29, 2024 07:55 PM Reporting Lab: [address] [address] Performing Lab: [address] [address] CREATININE 0.85 mg/dL 0.72-1.25 UREA NITROGEN 15 [...] 08, 2024 ADVANCE DIRECTIVE DISCUSSION [place] [facility] Radiology Reports: +/- [...] BRAIN W & W/O: LUIS MANUEL PERDOMO [id number] -1945 M Exm Date: SEP 06, 2024@13:40 Req Phys: FRANCK TURNER [facility] Loc: 5-MED/TEL/09-06-2024@19:09 Img Loc: [facility] Service: [place] [address] (Case [id number] COMPLETE) MRI BRAIN W & W/O (MRI Detailed) CPT:34896 Contrast Media : Gadolinium Reason for Study: SEE CLINICAL HISTORY Pharmaceutical: GADOTERIDOL 279.3MG/ML 20ML INJ, 19ml Clinical History: MRI Screening (Required): IMPLANTED DEVICE DOCUMENTATION IMPLANTED DEVICE DOCUMENTATION NOT FOUND Does the Oriental have any Cardiac Implants? None Does the have any implanted stimulators? None Does the Oriental have cochlear implants? No Does the have Cerebral aneurysm clip(s)? I don't know Does the Oriental have any shrapnel? I don't know If [...] 06, 2024 Date Verified: SEP 06, 2024 Mold [employer]ber E-Sig: Report: MRI brain without and with [...] Staff: ARCENIO LEYVA, Staff Radiologist Verified by metal casting trades worker for ARCENIO LEYVA /ARCENIO AVILA-CDD [facility] Sep 06, 2024 01:40 PM MRI C SPINE W & W/ O CONTRAST(FURTHER SEQUENCES): LUIS MANUEL PERDOMO [id number] -1945 M Exm Date: SEP 06, 2024@13:40 Req Phys: FRANCK TURNER Pat Loc: 5-MED/TEL/09-07-2024@06:42 Img Loc: [facility] Service: [place] [address] (Case [id number] COMPLETE) MRI C SPINE W & W/O CONTRAST(FURT(MRI Detailed) CPT:11981 Contrast Media : Gadolinium Reason for Study: SEE CLINICAL HISTORY Pharmaceutical: GADOTERIDOL 279.3MG/ML 20ML INJ, 19ml Clinical History: STATUS OF PLAIN FILMS:Not performed (Provide justification for MR W/O prior plain films below.) MRI for MS MRI Screening (Required): IMPLANTED DEVICE DOCUMENTATION IMPLANTED DEVICE DOCUMENTATION NOT FOUND Does the Oriental have any Cardiac Implants? None Does the Oriental have any implanted stimulators? None Does the have cochlear implants? No Does the Oriental have Cerebral aneurysm clip(s)? I don't know Does the Oriental have any shrapnel? I don't know If [...] 07, 2024 Date Verified: SEP 07, 2024 Mold Swabber E-Sig: Report: EXAMINATION: MRI OF THE CERVICAL [...] Interpreting Staff: HUANG TAI, Radiologist Verified by metal casting trades worker for HUANG TAI /HUANG WHEATLEY-Sav [facility] Sep 03, 2024 10:45 AM CHEST SINGLE(1) EW: LUIS MANUEL PERDOMO [id number] -1945 M Exm Date: SEP 03, 2024@10:45 Req Phys: FRANCK TURNER Pat Loc: 5-MED/TEL/09-03-2024@10:56 Img Loc: CDD RADIOLOGY Service: [place] [address] (Case [id number] COMPLETE)CHEST SINGLE(1) VIEW (RAD Detailed) CPT:85684 Proc Modifiers : PORTABLE EXAM Reason for Study: Eval volume status Clinical History: Report Status: Verified Date Reported: SEP 03, 2024 Date Verified: SEP 03, 2024 Mold Swabber E-Sig: Report: EXAMINATION: SINGLE VIEW CHEST CLINICAL [...] Interpreting Staff: HUANG TAI, Radiologist Verified by metal casting trades worker for HUANG TAI /HUANG WHEATLEY-CDD [facility] Aug 29, 2024 08:[address] HEAD W/O CONT: LUIS MANUEL PERDOMO [id number] -1945 M Exm Date: AUG 29, 2024@20:28 Req Phys: FELISA COLE Loc: ED/4P-12A (Req'g Loc) Img Loc: CT SCAN Service: Unknown [place] [id number] (Case [id number] COMPLETE) CT HEAD W/O CONT (CT Detailed) CPT:06596 Reason for Study: SEE CLINICAL HISTORY Clinical History: REASON FOR SEND OUT: ATTENDING PHYSICIAN NAME: New transient neurological s/s - suspected TIA HISTORY/REASON FOR EXAM: confusion Report Status: Verified Date Reported: AUG 29, 2024 Date Verified: AUG 29, 2024 Mold Swabber E-Sig: Report: HISTORY confusion COMPARISON No prior [...] Staff: ABDIRAHMAN CROW, Staff Physician Verified by metal casting trades worker for ABDIRAHMAN CROW /ABDIRAHMAN ROJAS-[facility] Pathology Reports: +/- [...] PORT: Reporting Lab: [facility] [CLIA# [id number]] [address] [place] [id number] Accession [UID]: [id number] [[id number]] Received: Sep 03, 2024@14:02 Collection sample: URINE, [...] Report Performed By: [facility] [CLIA# [id number]] [address] [place] [id number] BHARATI,MAGDY D [facility] Sep 02, 2024 06:00 PM LR MICROBIOLOGY RE PORT: Reporting Lab: [facility] [CLIA# [id number]] [address] [place] [address] Accession [UID]: [id number] [[id number]] Received: Sep 02, 2024@18:07 Collection sample: BLD CULTURE BOTTLES Collection date: Sep 02, 2024 18:00 Site/Specimen: BLOOD Provider: FRANCK TURNER Comment on specimen: L HAND Test(s) ordered: CULTURE, BLOOD................ completed: Sep 08, 2024 * BACTERIOLOGY FINAL REPORT => Sep 08, 2024 08:25 TECH CODE: [id number] Bacteriology Remark(s): Blood culture status=NO GROWTH (unless notified otherwise) 09/03/2024 AEROBIC: NO GROWTH ANAEROBIC: NO GROWTH =--=--=--=--=--=--=--=--=--=-- =--=--=--=--=--=--=--=--=--=-- =--=--=--=--=--=-- Performing Laboratory: Bacteriology Report Performed By: [facility] [CLIA# [id number]] [address] [place], [place] [phone] MAGDY CALABRESE [facility] Aug 29, 2024 10:18 PM LR MICROBIOLOGY RE PORT: Reporting Lab: [facility] [CLIA# [id number]] [address] [place], [place] [address] Accession [UID]: [id number] [[id number]] Received: Aug 29, 2024@22:18 Collection sample: URINE, CLEAN CATCH Collection date: Aug 29, 2024 22:18 Site/Specimen: URINE Provider: FELISA COLE Test(s) ordered: CULTURE, URINE................ completed: Aug 31, 2024 09:51 * BACTERIOLOGY FINAL REPORT => Aug 31, 2024 09:51 TECH CODE: [id number] Bacteriology Remark(s): NO GROWTH 08/30/2024 <10,000 CFU/ML. 08/31/2024 =--=--=--=--=--=--=--=--=--=-- =--=--=--=--=--=--=--=--=--=-- =--=--=--=--=--=-- Performing Laboratory: Bacteriology Report Performed By: [facility] [CLIA# [id number]] [address] [place] [address] MAGDY CALABRESE-Sav [facility]
--- OUTSIDE RECORDS SUMMARY | 2024-09-08 17:02 | XMS_ITS ---
[place] DAILY HOSPITALIZATION DATA [facility] Encounter Summary Created on: September 22, 2024 LUIS MANUEL PERDOMO : 1945 Sex: Male Author Name [facility] [place] [facility] [place] Address [address] [place] [address] Care Team Providers Care Spear Fisher Name Role Phone YULISSA HENDERSON Primary Care [...] PLAN F Mar 24, 2014 PLAN F [id number] LUIS MANUEL PERDOMO PATIENT [facility] [place] [facility]U[employer] PREFERRED PROVIDER ORGANIZAT ION (PPO) [facility] SLE Sep 21, 2012 [id number] [phone] LUIS MANUEL PERDOMO PATIENT [employer] ([id number]) PRESCRIPT ION WL3A Sep 21, 2012 [id number] LUIS MANUEL PERDOMO PATIENT MEDICARE (WNR) MEDICARE (M) PART B Sep 21, 2012 PART B [id number] NOEMI PERDOMO PATIENT MEDICARE (WNR) MEDICARE (M) PART A Jan 22, 2011 PART A [id number] LEANNE, NOEMI PATIENT MEDICARE PART D (WNR) MEDICARE (M) PART D Mar 24, 2014 PART D [id number] LUIS MANUEL PERDOMO PATIENT Selected Encounter This section includes the information on record at [place] for the Encounter. Date/Time Encounter Type Encounter Description Reason Pro vider Source Sep 08, 2024 09:02 PM Inpatient Visit DAILY HOSPITALIZATION DATA [facility] Encounter Template Text not used by [place] Plan of Treatment: Future Appointments (+ 6 months) and Future Tests (+/- 45 days) The Plan of Treatment section includes future care activities for the [facility] [place] [facility] This section includes future appointments [...] theEncounter. The data comes from all [facility] facilities. Test Date/Time Test Type Test Details Facility Name Sep 13, 2024 01:33 PM Consult Order [facility] SKILLED HOME CARE Cons Sample Tester's Choice [facility] Lab Results: +/- 30 [...] Specimen Type: CAPILLARY Comment: Test performed by: [id number] Meter #: [id number] Ordering Provider: FRANCK TURNER Report Released Date/Time: Sep 09, 2024 12:33 PM Reporting Lab: [address] [address] Performing Lab: [address] [address] GLUCOSE-HAND MONITOR 116 mg/dL H Sep 09, 2024 06:07 AM [facility] GLUCOSE-HAND MONITOR CAPILLARY Specime n Type: CAPILLARY Comment: Test performed by: [id number] Meter #: [id number] Ordering Provider: FRANCK TURNER Report Released Date/Time: Sep 09, 2024 08:17 AM Reporting Lab: [address] [address] Performing Lab: [address] [address] GLUCOSE-HAND MONITOR 112 mg/dL H Sep 08, 2024 09:13 PM [facility] GLUCOSE-HAND MONITOR CAPILLARY Specime n Type: CAPILLARY Comment: Test performed by: [id number] Meter #: [id number] Ordering Provider: FRANCK TURNER Report Released Date/Time: Sep 08, 2024 09:31 PM Reporting Lab: [address] [address] Performing Lab: [address] [address] GLUCOSE-HAND MONITOR 107 mg/dL H Sep 08, 2024 03:49 PM [facility] GLUCOSE-HAND MONITOR CAPILLARY Specime n Type: CAPILLARY Comment: AAMIR RN notified Test performed by: [id number] Meter #: [id number] Ordering Provider: FRANCK TURNER Report Released Date/Time: Sep 08, 2024 04:33 PM Reporting Lab: [address] [address] Performing Lab: [address] [address] GLUCOSE-HAND MONITOR 162 mg/dL H Sep 08, 2024 11:43 AM [facility] GLUCOSE-HAND MONITOR CAPILLARY Specime n Type: CAPILLARY Comment: AAMIR RN notified Test performed by: [id number] Meter #: [id number] Ordering Provider: FRANCK TURNER Report Released Date/Time: Sep 08, 2024 12:03 PM Reporting Lab: [address] [address] Performing Lab: [address] [address] GLUCOSE-HAND MONITOR 133 mg/dL H Sep 08, 2024 06:13 AM [facility] GLUCOSE-HAND MONITOR CAPILLARY Specime n Type: CAPILLARY Comment: Test performed by: [id number] Meter #: [id number] Ordering Provider: FRANCK TURNER Report Released Date/Time: Sep 08, 2024 06:46 AM Reporting Lab: [address] [address] Performing Lab: [address] [address] GLUCOSE-HAND MONITOR 104 mg/dL H Sep 07, 2024 07:59 PM [facility] GLUCOSE-HAND MONITOR CAPILLARY Specime n Type: CAPILLARY Comment: Test performed by: [id number] Meter #: [id number] Ordering Provider: FRANCK TURNER Report Released Date/Time: Sep 07, 2024 09:05 PM Reporting Lab: [address] [address] Performing Lab: [address] [address] GLUCOSE-HAND MONITOR 107 mg/dL H Sep 07, 2024 04:39 PM [facility] GLUCOSE-HAND MONITOR CAPILLARY Specime n Type: CAPILLARY Comment: Test performed by: [id number] Meter #: [id number] Ordering Provider: FRANCK TURNER Report Released Date/Time: Sep 07, 2024 05:09 PM Reporting Lab: [address] [address] Performing Lab: [address] [address] GLUCOSE-HAND MONITOR 105 mg/dL H Sep 07, 2024 11:41 AM [facility] GLUCOSE-HAND MONITOR CAPILLARY Specime n Type: CAPILLARY Comment: Test performed by: [id number] Meter #: [id number] Ordering Provider: FRANCK TURNER Report Released Date/Time: Sep 07, 2024 12:41 PM Reporting Lab: [address] [address] Performing Lab: [address] [address] GLUCOSE-HAND MONITOR 144 mg/dL H Sep 07, 2024 05:56 AM [facility] GLUCOSE-HAND MONITOR CAPILLARY Specime n Type: CAPILLARY Comment: Test performed by: [id number] Meter #: [id number] Ordering Provider: FRANCK TURNER Report Released Date/Time: Sep 07, 2024 06:31 AM Reporting Lab: [address] [address] Performing Lab: [address] [address] GLUCOSE-HAND MONITOR 96 mg/dL Sep 06, 2024 08:10 PM [facility] GLUCOSE-HAND MONITOR CAPILLARY Specime n Type: CAPILLARY Comment: Test performed by: [id number] Meter #: [id number] Ordering Provider: FRANCK TURNER Report Released Date/Time: Sep 06, 2024 08:52 PM Reporting Lab: [address] [address] Performing Lab: [address] [address] GLUCOSE-HAND MONITOR 124 mg/dL H Sep 06, 2024 04:27 PM [facility] GLUCOSE-HAND MONITOR CAPILLARY Specime n Type: CAPILLARY Comment: Test performed by: [id number] Meter #: [id number] Ordering Provider: FRANCK TURNER Report Released Date/Time: Sep 06, 2024 05:15 PM Reporting Lab: [address] [address] Performing Lab: [address] [address] GLUCOSE-HAND MONITOR 107 mg/dL H Sep 06, 2024 12:12 PM [facility] GLUCOSE-HAND MONITOR CAPILLARY Specime n Type: CAPILLARY Comment: Test performed by: [id number] Meter #: [id number] Ordering Provider: FRANCK TURNER Report Released Date/Time: Sep 06, 2024 12:29 PM Reporting Lab: [address] [address] Performing Lab: [address] [address] GLUCOSE-HAND MONITOR 181 mg/dL H -Sep 06, 2024 06:13 AM [facility] GLUCOSE-HAND MONITOR CAPILLARY Specime n Type: CAPILLARY Comment: Test performed by: [id number] Meter #: [id number] Ordering Provider: FRANCK TURNER Report Released Date/Time: Sep 06, 2024 06:36 AM Reporting Lab: [address] [address] Performing Lab: [address] [address] GLUCOSE-HAND MONITOR 102 mg/dL H Sep 05, 2024 08:47 PM [facility] GLUCOSE-HAND MONITOR CAPILLARY Specime n Type: CAPILLARY Comment: Test performed by: [id number] Meter #: [id number] Ordering Provider: FRANCK TURNER Report Released Date/Time: Sep 06, 2024 02:13 AM Reporting Lab: [address] [address] Performing Lab: [address] [address] GLUCOSE-HAND MONITOR 103 mg/dL H Sep 05, 2024 04:40 PM [facility] GLUCOSE-HAND MONITOR CAPILLARY Specime n Type: CAPILLARY Comment: AAMIR RN notified Test performed by: [id number] Meter #: [id number] Ordering Provider: FRANCK TURNER Report Released Date/Time: Sep 05, 2024 05:11 PM Reporting Lab: [address] [address] Performing Lab: [address] [address] GLUCOSE-HAND MONITOR 113 mg/dL H Sep 05, 2024 12:06 PM [facility] GLUCOSE-HAND MONITOR CAPILLARY Specime n Type: CAPILLARY Comment: Test performed by: [id number] Meter #: [id number] Ordering Provider: FRANCK TURNER Report Released Date/Time: Sep 05, 2024 12:23 PM Reporting Lab: [address] [address] Performing Lab: [address] [address] GLUCOSE-HAND MONITOR 115 mg/dL H Sep 05, 2024 06:26 AM [facility] GLUCOSE-HAND MONITOR CAPILLARY Specime n Type: CAPILLARY Comment: AAMIR Correction Dose Test performed by: [id number] Meter #: [id number] Ordering Provider: FRANCK TURNER Report Released Date/Time: Sep 05, 2024 06:43 AM Reporting Lab: [address] [address] Performing Lab: [address] [address] GLUCOSE-HAND MONITOR 111 mg/dL H Sep 04, 2024 08:59 PM [facility] GLUCOSE-HAND MONITOR CAPILLARY Specime n Type: CAPILLARY Comment: AAMIR RN notified Test performed by: [id number] Meter #: [id number] Ordering Provider: FRANCK TURNER Report Released Date/Time: Sep 04, 2024 09:36 PM Reporting Lab: [address] [address] Performing Lab: [address] [address] GLUCOSE-HAND MONITOR 123 mg/dL H Sep 04, 2024 04:41 PM [facility] GLUCOSE-HAND MONITOR CAPILLARY Specime n Type: CAPILLARY Comment: AAMIR RN notified Test performed by: [id number] Meter #: [id number] Ordering Provider: FRANCK TURNER Report Released Date/Time: Sep 04, 2024 05:03 PM Reporting Lab: [address] [address] Performing Lab: [address] [address] GLUCOSE-HAND MONITOR 118 mg/dL H Sep 04, 2024 12:36 PM [facility] GLUCOSE-HAND MONITOR CAPILLARY Specime n Type: CAPILLARY Comment: AAMIR RN notified Test performed by: [id number] Meter #: [id number] Ordering Provider: FRANCK TURNER Report Released Date/Time: Sep 04, 2024 12:53 PM Reporting Lab: [address] [address] Performing Lab: [place] [address] GLUCOSE-HAND MONITOR 129 mg/dL H 71-99 Sep 04, 2024 12:03 PM [facility] RESPIRATORY VIRUS PANEL (BIOFIRE) NASOPHARYN X Specimen Type: NASOPHARYNX Comment: ~For Test: RESPIRATORY VIRUS PANEL (BIOFIRE) ~ORDER READ BACK TO: FRANCK TURNER 09/04/24@11:30 Ordering Provider: FRANCK TURNER Report Released Date/Time: Sep 04, 2024 11:33 AM Reporting Lab: [place] [phone] Performing Lab: [place] [phone] ADENOVIRUS (BIOFIRE) Not Detected -Not D etected [...] -Not Detected Sep 04, 2024 06:55 AM [facility] MAGNESIUM PLASMA Specimen Type: PLASM [...] 2024 11:10 AM Reporting Lab: [facility] [address] [facility] [address] Performing Lab: [place] [address] [facility] [address] MAGNESIUM 1.8 mg/dL 1.6-2.6 Sep 04, 2024 06:55 AM [facility] PANEL 1 PLASMA Specimen Type: [...] Sep 03, 2024 11:10 AM Reporting Lab: [address] [address] Performing Lab: [address] CREATININE 0.75 mg/dL 0.72-1.25 UREA NITROGEN 13 mg/dL 9-25 GLUCOSE 105 mg/dL H 74-100 SODIUM 128 mmol/L L 136-145 POTASSIUM 3.9 mmol/L 3.5-5.1 CHLORIDE 99 mmol/L 98-107 CO2 21 mmol/L L 22-29 CALCIUM 8.0 mg/dL L 8.4-10.2 ANION GAP 8 meq/L 3-19 eGFR (CKD-EPI) >90 Sep 04, 2024 06:02 AM [facility] GLUCOSE-HAND MONITOR CAPILLARY Specime n Type: CAPILLARY Comment: Test performed by: [id number] Meter #: [id number] Ordering Provider: FRANCK TURNER Report Released Date/Time: Sep 04, 2024 06:28 AM Reporting Lab: [address] Performing Lab: [address] GLUCOSE-HAND MONITOR 114 mg/dL H 71-99 Sep 03, 2024 05:19 PM [facility] GLUCOSE-HAND MONITOR CAPILLARY Specime n Type: CAPILLARY Comment: Test performed by: [id number] Meter #: [id number] Ordering Provider: FRANCK TURNER Report Released Date/Time: Sep 03, 2024 05:37 PM Reporting Lab: [address] Performing Lab: [address] [address] GLUCOSE-HAND MONITOR 124 mg/dL H 71-99 Sep 03, 2024 04:41 PM [facility] GLUCOSE-HAND MONITOR CAPILLARY Specime n Type: CAPILLARY Comment: Test performed by: [id number] Meter #: [id number] Ordering Provider: FRANCK TURNER Report Released Date/Time: Sep 03, 2024 06:09 PM Reporting Lab: [address] [address] Performing Lab: [address] [address] GLUCOSE-HAND MONITOR 112 mg/dL H 71-99 Sep 03, 2024 01:35 PM [facility] URINE LYTES URINE Specimen Type : URINE Comment: ~Altered mental status with no identifiable cause Ordering Provider: FRANCK TURNER Report Released Date/Time: Sep 02, 2024 04:44 PM Reporting Lab: [address] [address] Performing Lab: [address] [address] SODIUM 130 mmol/L POTASSIUM 47.6 mmol/L CHLORIDE 137 mmol/L Sep 03, 2024 01:35 PM [facility] CREATININE URINE Specimen Type: URINE Comment: ~Altered mental status with no identifiable cause Ordering Provider: FRANCK TURNER Report Released Date/Time: Sep 02, 2024 04:44 PM Reporting Lab: [address] [address] Performing Lab: [address] [address] CREATININE 150.9 mg/dL Sep 03, 2024 01:35 PM [facility] OSMOLALITY URINE Specimen Type: URINE Comment: ~Altered mental status with no identifiable cause Ordering Provider: FRANCK TURNER Report Released Date/Time: Sep 02, 2024 04:44 PM Reporting Lab: [address] [address] Performing Lab: [address] [address] OSMOLALITY 522 mosm/kg 38-1400 Sep 03, 2024 01:35 PM [facility] UREA NITROGEN URINE Specimen Type : URINE Comment: ~Altered mental status with no identifiable cause Ordering Provider: FRANCK TURNER Report Released Date/Time: Sep 02, 2024 04:44 PM Reporting Lab: [address] [address] Performing Lab: [address] [address] UREA NITROGEN 320 mg/dL Sep 03, 2024 01:35 PM [facility] URINALYSIS WITH REFLEX TO CULTURE URINE Specimen Type: URINE Comment: ~Altered mental status with no identifiable cause Ordering Provider: FRANCK TURNER Report Released Date/Time: Sep 02, 2024 04:44 PM Reporting Lab: [address] [address] Performing Lab: [address] [address] URINE COLOR Yellow Colorless-Yellow APPEARANCE CLOUDY H [...] H 0-28 Sep 03, 2024 11:58 AM [facility] GLUCOSE-HAND MONITOR CAPILLARY Specime n Type: CAPILLARY Comment: AAMIR RN notified Test performed by: [id number] Meter #: [id number] Ordering Provider: FRANCK TURNER Report Released Date/Time: Sep 03, 2024 12:15 PM Reporting Lab: [address] [address] Performing Lab: [address] [address] GLUCOSE-HAND MONITOR 135 mg/dL H Sep 03, 2024 07:09 AM [facility] GLUCOSE-HAND MONITOR CAPILLARY Specime n Type: CAPILLARY Comment: Test performed by: [id number] Meter #: [id number] Ordering Provider: FRANCK TURNER Report Released Date/Time: Sep 03, 2024 07:26 AM Reporting Lab: [address] [address] Performing Lab: [address] [address] GLUCOSE-HAND MONITOR 120 mg/dL H -Sep 03, 2024 07:05 AM [facility] CBC/PLT BLOOD Specimen Type: BLOOD No comment entered. Ordering Provider: FRANCK TURNER Report Released Date/Time: Sep 02, 2024 04:29 PM Reporting Lab: [facility] [address] [place] [address] Performing Lab: [address] [address] WBC 6.9 10*3/uL 5.0-10.0 RBC 3.48 10*6/uL L 4.6-6.2 HGB 9.5 g/dL L 14.0-18.0 HCT 29.1 L 42.0-52.0 MCV 83.6 fL 80.0-94.0 MCH 27.3 pg 27.0-31.0 MCHC 32.6 g/dL 32.0-36.0 PLT 258 10*3/uL 150-450 MPV 10.3 fL 9.0-13.1 RDW 14.8 11.0-16.0 NRBC 0.0 0.0-0.0 Sep 03, 2024 07:05 AM [facility] PANEL 1 PLASMA Specimen Type: [...] <15 G5 Kidney failure Ordering Provider: FRANCK TURENR Report Released Date/Time: Sep 02, 2024 04:29 PM Reporting Lab: [address] [address] Performing Lab: [address] [address] CREATININE 0.82 mg/dL 0.72-1.25 UREA NITROGEN 12 mg/dL 9-25 GLUCOSE 109 mg/dL H 74-100 SODIUM 129 mmol/L L 136-145 POTASSIUM 4.2 mmol/L 3.5-5.1 CHLORIDE 99 mmol/L 98-107 CO2 21 mmol/L L 22-29 CALCIUM 8.1 mg/dL L 8.4-10.2 ANION GAP 9 meq/L 3-19 eGFR (CKD-EPI) 90 Sep 03, 2024 07:05 AM [facility] MAGNESIUM PLASMA Specimen Type: PLASM [...] Sep 02, 2024 04:29 PM Reporting Lab: [address] [address] Performing Lab: [address] [address] MAGNESIUM 1.7 mg/dL 1.6-2.6 Sep 03, 2024 07:05 AM [facility] GLYCOHEMOGLOBIN BLOOD Specimen Type: BLOOD Comment: Prediabetes: 5.7%-6.4% Diabetes: >= 6.5% [place]-DoD guidelines for A1c interpretation: Glycemic control targets [...] 8.73 and 9.27. Ref: https://ngsp.org/CAPdata.asp. The in-house [employer] Story D-100 analyzer has a historical CV <= 2%. Contact the laboratory for further performance characteristics of this assay. Ordering Provider: FRANCK TURNER Report Released Date/Time: Sep 02, 2024 04:29 PM Reporting Lab: [address] [address] Performing Lab: [place] [phone] GLYCOHEMOGLOBIN 5.6 4.4-5.6 Sep 03, 2024 07:05 AM [facility] OSMOLALITY SERUM Specimen Type: SERUM No comment entered. Ordering Provider: FRANCK TURNER Report Released Date/Time: Sep 02, 2024 04:44 PM Reporting Lab: [address] [address] Performing Lab: [address] [address] OSMOLALITY 271 mosm/kg L 280-300 Sep 02, 2024 08:15 PM [facility] GLUCOSE-HAND MONITOR CAPILLARY Specime n Type: CAPILLARY Comment: AAMIR DEXTER notified Test performed by: [id number] Meter #: [id number] Ordering Provider: FRANCK TURNER Report Released Date/Time: Sep 02, 2024 08:57 PM Reporting Lab: [address] [address] Performing Lab: [address] [address] GLUCOSE-HAND MONITOR 126 mg/dL H 71-99 Sep 02, 2024 06:10 PM [facility] MRSA SURVL NARES DNA NARES [...] Sep 02, 2024 05:12 PM Reporting Lab: [address] [address] Performing Lab: [address] [address] MRSA SURVL NARES DNA Negative Negative Sep 02, 2024 05:36 PM [facility] GLUCOSE-HAND MONITOR CAPILLARY Specime n Type: CAPILLARY Comment: Test performed by: [id number] Meter #: [id number] Ordering Provider: FRANCK TURNER Report Released Date/Time: Sep 02, 2024 05:53 PM Reporting Lab: [address] [address] Performing Lab: [address] [address] GLUCOSE-HAND MONITOR 127 mg/dL H 71-99 Aug 29, 2024 10:04 PM [facility] URINALYSIS WITH REFLEX TO CULTURE URINE Specimen Type: URINE Comment: ~For Test: URINALYSIS WITH REFLEX TO CULTURE ~REORDER Ordering Provider: FELISA COLE Report Released Date/Time: Aug 29, 2024 09:36 PM Reporting Lab: [address] [address] Performing Lab: [address] [address] URINE COLOR Yellow Colorless-Yellow APPEARANCE Clear Clear [...] Aug 29, 2024 07:55 PM Reporting Lab: [address] [address] Performing Lab: [address] [address] HIGH SENSITIVITY TROPONIN I 7 4-35 Aug 29, 2024 08:32 PM [facility] CBC/PLT BLOOD Specimen Type: BLOOD No comment entered. Ordering Provider: FELISA COLE Report Released Date/Time: Aug 29, 2024 07:55 PM Reporting Lab: [address] [address] Performing Lab: [address] [address] WBC 11.2 10*3/uL H 5.0-10.0 RBC 3.97 [...] Aug 29, 2024 07:55 PM Reporting Lab: [address] [address] Performing Lab: [address] [address] CREATININE 0.85 mg/dL 0.72-1.25 UREA NITROGEN 15 [...] 18 /min 96 % 0 [place] Sep 08, 2024 09:03 PM 0 [place] [facility] Sep 08, 2024 03:46 PM 97.7 F 76 /min 148/70 mm[Hg] 16 /min 96 % 0 [place] [facility] Sep 08, 2024 11:42 AM 97.4 F 67 /min 125/69 mm[Hg] 92 % [place] [facility] Sep 08, 2024 09:30 AM 0 [place] [facility] Advance Directives: All historical and current [...] 08, 2024 ADVANCE DIRECTIVE DISCUSSION [facility] Radiology Reports: +/- [...] BRAIN W & W/O: LUIS MANUEL PERDOMO [id number] -1945 M Exm Date: SEP 06, 2024@13:40 Req Phys: FRANCK TURNER [facility] Loc: 5-MED/TEL/09-06-2024@19:09 Img Loc: [facility] Service: [place] [address] (Case [id number] COMPLETE) MRI BRAIN W & W/O (MRI Detailed) CPT:25355 Contrast Media : Gadolinium Reason for Study: SEE CLINICAL HISTORY Pharmaceutical: GADOTERIDOL 279.3MG/ML 20ML INJ, 19ml Clinical History: MRI Screening (Required): IMPLANTED DEVICE DOCUMENTATION IMPLANTED DEVICE DOCUMENTATION NOT FOUND Does the Luther have any Cardiac Implants? None Does the have any implanted stimulators? None Does the Luther have cochlear implants? No Does the have Cerebral aneurysm clip(s)? I don't know Does the [place] have any shrapnel? I don't know If [...] 06, 2024 Date Verified: SEP 06, 2024 Aoc Director Combat Operations Officer E-Sig: Report: MRI brain without and with [...] Staff: ARCENIO LEYVA, Staff Radiologist Verified by ornament stitcher for ARCENIO LEYVA /ARCENIO AVILA-[facility] Sep 06, 2024 01:40 PM MRI C SPINE W & W/ O CONTRAST(FURTHER SEQUENCES): LUIS MANUEL PERDOMO [id number] -1945 M Exm Date: SEP 06, 2024@13:40 Req Phys: FRANCK TURNER Pat Loc: 5-MED/TEL/09-07-2024@06:42 Img Loc: [facility] Service: [place] [address] (Case [id number] COMPLETE) MRI C SPINE W & W/O CONTRAST(FURT(MRI Detailed) CPT:97404 Contrast Media : Gadolinium Reason for Study: SEE CLINICAL HISTORY Pharmaceutical: GADOTERIDOL 279.3MG/ML 20ML INJ, 19ml Clinical History: STATUS OF PLAIN FILMS:Not performed (Provide justification for MR W/O prior plain films below.) MRI for MS MRI Screening (Required): IMPLANTED DEVICE DOCUMENTATION IMPLANTED DEVICE DOCUMENTATION NOT FOUND Does the Luther have any Cardiac Implants? None Does the [place] have any implanted stimulators? None Does the have cochlear implants? No Does the [place] have Cerebral aneurysm clip(s)? I don't know Does the [place] have any shrapnel? I don't know If [...] 07, 2024 Date Verified: SEP 07, 2024 Aoc Director Combat Operations Officer E-Sig: Report: EXAMINATION: MRI OF THE CERVICAL [...] Interpreting Staff: HUANG TAI, Radiologist Verified by ornament stitcher for HUANG TAI /HUANG WHEATLEY-Sav [facility] Sep 03, 2024 10:45 AM CHEST SINGLE(1) EW: LUIS MANUEL PERDOMO [id number] -1945 M Exm Date: SEP 03, 2024@10:45 Req Phys: FRANCK TURNER Pat Loc: 5-MED/TEL/09-03-2024@10:56 Img Loc: [facility] Service: [place] [address] (Case [id number] COMPLETE)CHEST SINGLE(1) VIEW (RAD Detailed) CPT:87405 Proc Modifiers : PORTABLE EXAM Reason for Study: Eval volume status Clinical History: Report Status: Verified Date Reported: SEP 03, 2024 Date Verified: SEP 03, 2024 Aoc Director Combat Operations Officer E-Sig: Report: EXAMINATION: SINGLE VIEW CHEST CLINICAL [...] Interpreting Staff: HUANG TAI, Radiologist Verified by ornament stitcher for HUANG TAI /HUANG WHEATLEY-[facility] Aug 29, 2024 08:[address] HEAD W/O CONT: LUIS MANUEL PERDOMO [id number] -1945 M Exm Date: AUG 29, 2024@20:28 Req Phys: FELISA COLE Loc: ED/4P-12A (Req'g Loc) Img Loc: CT SCAN Service: Unknown [place] [id number] (Case [id number] COMPLETE) CT HEAD W/O CONT (CT Detailed) CPT:28115 Reason for Study: SEE CLINICAL HISTORY Clinical History: REASON FOR SEND OUT: ATTENDING PHYSICIAN NAME: New transient neurological s/s - suspected TIA HISTORY/REASON FOR EXAM: confusion Report Status: Verified Date Reported: AUG 29, 2024 Date Verified: AUG 29, 2024 Aoc Director Combat Operations Officer E-Sig: Report: HISTORY confusion COMPARISON No [...] Staff: ABDIRAHMAN CROW, Staff Physician Verified by ornament stitcher for ABDIRAHMAN CROW /ABDIRAHMAN ROJAS-[facility] Pathology Reports: +/- 30 [...] PORT: Reporting Lab: [facility] [CLIA# [id number]] [address] [place] [id number] Accession [UID]: [id number] [[id number]] Received: Sep 03, 2024@14:02 Collection sample: URINE, [...] Report Performed By: [facility] [CLIA# [id number]] [address] [place] [id number] BHARATI,MAGDY D [facility] Sep 02, 2024 06:00 PM LR MICROBIOLOGY RE PORT: Reporting Lab: [facility] [CLIA# [id number]] [address] [place] [address] Accession [UID]: [id number] [[id number]] Received: Sep 02, 2024@18:07 Collection sample: BLD CULTURE BOTTLES Collection date: Sep 02, 2024 18:00 Site/Specimen: BLOOD Provider: FRANCK TURNER Comment on specimen: L HAND Test(s) ordered: CULTURE, BLOOD................ completed: Sep 08, 2024 * BACTERIOLOGY FINAL REPORT => Sep 08, 2024 08:25 TECH CODE: [id number] Bacteriology Remark(s): Blood culture status=NO GROWTH (unless notified otherwise) 09/03/2024 AEROBIC: NO GROWTH ANAEROBIC: NO GROWTH =--=--=--=--=--=--=--=--=--=-- =--=--=--=--=--=--=--=--=--=-- =--=--=--=--=--=-- Performing Laboratory: Bacteriology Report Performed By: [facility] [CLIA# [id number]] [address] [place], [place] [id number] MAGDY CALABRESE [facility] Aug 29, 2024 10:18 PM LR MICROBIOLOGY RE PORT: Reporting Lab: [facility] [CLIA# [id number]] [address] [place], [place] [id number] Accession [UID]: [id number] [[id number]] Received: Aug 29, 2024@22:18 Collection sample: URINE, CLEAN CATCH Collection date: Aug 29, 2024 22:18 Site/Specimen: URINE Provider: FELISA COLE Test(s) ordered: CULTURE, URINE................ completed: Aug 31, 2024 09:51 * BACTERIOLOGY FINAL REPORT => Aug 31, 2024 09:51 TECH CODE: [id number] Bacteriology Remark(s): NO GROWTH 08/30/2024 <10,000 CFU/ML. 08/31/2024 =--=--=--=--=--=--=--=--=--=-- =--=--=--=--=--=--=--=--=--=-- =--=--=--=--=--=-- Performing Laboratory: Bacteriology Report Performed By: [facility] [CLIA# [id number]] [address] [place] [address] MAGDY CALABRESE-Sav [facility]
--- OUTSIDE RECORDS SUMMARY | 2024-09-08 18:00 | XMS_ITS ---
[place] DAILY HOSPITALIZATION DATA [facility] Encounter Summary Created on: September 22, 2024 LUIS MANUEL PERDOMO : 1945 Sex: Male Author Name [facility] [place] [facility] [place] Address [address] [place] [address] Care Team Providers Care Fitness Instructor Name Role Phone YULISSA HENDERSON Primary [...] PLAN F Mar 24, 2014 PLAN F [id number] LUIS MANUEL PERDOMO PATIENT [facility] [place] [facility] PREFERRED PROVIDER ORGANIZAT ION (PPO) [facility] SLE Sep 21, 2012 [id number] LUIS MANUEL PERDOMO PATIENT [employer] ([id number]) PRESCRIPT ION WL3A Sep 21, 2012 [id number] LUIS MANUEL PERDOMO PATIENT MEDICARE (WNR) MEDICARE (M) PART B Sep 21, 2012 PART B [id number] NOEMI PERDOMO PATIENT MEDICARE (WNR) MEDICARE (M) PART A Jan 22, 2011 PART A [id number] [id number] LEANNE, NOEMI PATIENT MEDICARE PART D (WNR) MEDICARE (M) PART D Mar 24, 2014 PART D [id number] LUIS MANUEL PERDOMO PATIENT Selected Encounter This section includes the information on record at [place] for the Encounter. Date/Time Encounter Type Encounter Description Reason Pro vider Source Sep 08, 2024 10:00 PM Inpatient Visit DAILY HOSPITALIZATION DATA [facility] Encounter Template Text not used by [place] Plan of Treatment: Future Appointments (+ 6 months) and Future Tests (+/- 45 days) The Plan of Treatment section includes future care activities [facility] the [facility] [place] [facility] This section includes future [...] theEncounter. The data comes from all [facility] facilities. Test Date/Time Test Type Test Details Facility Name Sep 13, 2024 01:33 PM Consult Order [facility] Cons [place] [facility] [facility] Lab Results: +/- 30 days of the [...] Type Comment Sep 09, 2024 12:16 PM [facility] GLUCOSE-HAND MONITOR CAPILLARY Specimen Type: CAPILLARY Comment: Test performed by: [id number] Meter #: [id number] Ordering Provider: FRANCK TURNER Report Released Date/Time: Sep 09, 2024 12:33 PM Reporting Lab: [address] [address] Performing Lab: [address] [address] GLUCOSE-HAND MONITOR 116 mg/dL H Sep 09, 2024 06:07 AM [facility] GLUCOSE-HAND MONITOR CAPILLARY Specime n Type: CAPILLARY Comment: Test performed by: [id number] Meter #: [id number] Ordering Provider: FRANCK TURNER Report Released Date/Time: Sep 09, 2024 08:17 AM Reporting Lab: [address] [address] Performing Lab: [address] [address] GLUCOSE-HAND MONITOR 112 mg/dL H Sep 08, 2024 09:13 PM [facility] GLUCOSE-HAND MONITOR CAPILLARY Specime n Type: CAPILLARY Comment: Test performed by: [id number] Meter #: [id number] Ordering Provider: FRANCK TURNER Report Released Date/Time: Sep 08, 2024 09:31 PM Reporting Lab: [address] [address] Performing Lab: [address] [address] GLUCOSE-HAND MONITOR 107 mg/dL H Sep 08, 2024 03:49 PM [facility] GLUCOSE-HAND MONITOR CAPILLARY Specime n Type: CAPILLARY Comment: AAMIR RN notified Test performed by: [id number] Meter #: [id number] Ordering Provider: FRANCK TURNER Report Released Date/Time: Sep 08, 2024 04:33 PM Reporting Lab: [address] [address] Performing Lab: [address] [address] GLUCOSE-HAND MONITOR 162 mg/dL H Sep 08, 2024 11:43 AM [facility] GLUCOSE-HAND MONITOR CAPILLARY Specime n Type: CAPILLARY Comment: AAMIR RN notified Test performed by: [id number] Meter #: [id number] Ordering Provider: FRANCK TURNER Report Released Date/Time: Sep 08, 2024 12:03 PM Reporting Lab: [address] [address] Performing Lab: [address] [address] GLUCOSE-HAND MONITOR 133 mg/dL H Sep 08, 2024 06:13 AM [facility] GLUCOSE-HAND MONITOR CAPILLARY Specime n Type: CAPILLARY Comment: Test performed by: [id number] Meter #: [id number] Ordering Provider: FRANCK TURNER Report Released Date/Time: Sep 08, 2024 06:46 AM Reporting Lab: [address] [address] Performing Lab: [address] [address] GLUCOSE-HAND MONITOR 104 mg/dL H Sep 07, 2024 07:59 PM [facility] GLUCOSE-HAND MONITOR CAPILLARY Specime n Type: CAPILLARY Comment: Test performed by: [id number] Meter #: [id number] Ordering Provider: FRANCK TURNER Report Released Date/Time: Sep 07, 2024 09:05 PM Reporting Lab: [address] [address] Performing Lab: [address] [address] GLUCOSE-HAND MONITOR 107 mg/dL H Sep 07, 2024 04:39 PM [facility] GLUCOSE-HAND MONITOR CAPILLARY Specime n Type: CAPILLARY Comment: Test performed by: [id number] Meter #: [id number] Ordering Provider: FRANCK TURNER Report Released Date/Time: Sep 07, 2024 05:09 PM Reporting Lab: [address] [address] Performing Lab: [address] [address] GLUCOSE-HAND MONITOR 105 mg/dL H Sep 07, 2024 11:41 AM [facility] GLUCOSE-HAND MONITOR CAPILLARY Specime n Type: CAPILLARY Comment: Test performed by: [id number] Meter #: [id number] Ordering Provider: FRANCK TURNER Report Released Date/Time: Sep 07, 2024 12:41 PM Reporting Lab: [address] [address] Performing Lab: [address] [address] GLUCOSE-HAND MONITOR 144 mg/dL H Sep 07, 2024 05:56 AM [facility] GLUCOSE-HAND MONITOR CAPILLARY Specime n Type: CAPILLARY Comment: Test performed by: [id number] Meter #: [id number] Ordering Provider: FRANCK TURNER Report Released Date/Time: Sep 07, 2024 06:31 AM Reporting Lab: [address] [address] Performing Lab: [address] [address] GLUCOSE-HAND MONITOR 96 mg/dL Sep 06, 2024 08:10 PM [facility] GLUCOSE-HAND MONITOR CAPILLARY Specime n Type: CAPILLARY Comment: Test performed by: [id number] Meter #: [id number] Ordering Provider: FRANCK TURNER Report Released Date/Time: Sep 06, 2024 08:52 PM Reporting Lab: [address] [address] Performing Lab: [address] [address] GLUCOSE-HAND MONITOR 124 mg/dL H Sep 06, 2024 04:27 PM [facility] GLUCOSE-HAND MONITOR CAPILLARY Specime n Type: CAPILLARY Comment: Test performed by: [id number] Meter #: [id number] Ordering Provider: FRANCK TURNER Report Released Date/Time: Sep 06, 2024 05:15 PM Reporting Lab: [address] [address] Performing Lab: [address] [address] GLUCOSE-HAND MONITOR 107 mg/dL H Sep 06, 2024 12:12 PM [facility] GLUCOSE-HAND MONITOR CAPILLARY Specime n Type: CAPILLARY Comment: Test performed by: [id number] Meter #: [id number] Ordering Provider: FRANCK TURNER Report Released Date/Time: Sep 06, 2024 12:29 PM Reporting Lab: [address] [address] Performing Lab: [address] [address] GLUCOSE-HAND MONITOR 181 mg/dL H -Sep 06, 2024 06:13 AM [facility] GLUCOSE-HAND MONITOR CAPILLARY Specime n Type: CAPILLARY Comment: Test performed by: [id number] Meter #: [id number] Ordering Provider: FRANCK TURNER Report Released Date/Time: Sep 06, 2024 06:36 AM Reporting Lab: [address] [address] Performing Lab: [address] [address] GLUCOSE-HAND MONITOR 102 mg/dL H Sep 05, 2024 08:47 PM [facility] GLUCOSE-HAND MONITOR CAPILLARY Specime n Type: CAPILLARY Comment: Test performed by: [id number] Meter #: [id number] Ordering Provider: FRANCK TURNER Report Released Date/Time: Sep 06, 2024 02:13 AM Reporting Lab: [address] [address] Performing Lab: [address] [address] GLUCOSE-HAND MONITOR 103 mg/dL H Sep 05, 2024 04:40 PM [facility] GLUCOSE-HAND MONITOR CAPILLARY Specime n Type: CAPILLARY Comment: AAMIR RN notified Test performed by: [id number] Meter #: [id number] Ordering Provider: FRANCK TURNER Report Released Date/Time: Sep 05, 2024 05:11 PM Reporting Lab: [address] [address] Performing Lab: [address] [address] GLUCOSE-HAND MONITOR 113 mg/dL H Sep 05, 2024 12:06 PM [facility] GLUCOSE-HAND MONITOR CAPILLARY Specime n Type: CAPILLARY Comment: Test performed by: [id number] Meter #: [id number] Ordering Provider: FRANCK TURNER Report Released Date/Time: Sep 05, 2024 12:23 PM Reporting Lab: [address] [address] Performing Lab: [address] [address] GLUCOSE-HAND MONITOR 115 mg/dL H Sep 05, 2024 06:26 AM [facility] GLUCOSE-HAND MONITOR CAPILLARY Specime n Type: CAPILLARY Comment: AAMIR Correction Dose Test performed by: [id number] Meter #: [id number] Ordering Provider: FRANCK TURNER Report Released Date/Time: Sep 05, 2024 06:43 AM Reporting Lab: [address] [address] Performing Lab: [address] [address] GLUCOSE-HAND MONITOR 111 mg/dL H Sep 04, 2024 08:59 PM [facility] GLUCOSE-HAND MONITOR CAPILLARY Specime n Type: CAPILLARY Comment: AAMIR RN notified Test performed by: [id number] Meter #: [id number] Ordering Provider: FRANCK TURNER Report Released Date/Time: Sep 04, 2024 09:36 PM Reporting Lab: [address] [address] Performing Lab: [address] [address] GLUCOSE-HAND MONITOR 123 mg/dL H Sep 04, 2024 04:41 PM [facility] GLUCOSE-HAND MONITOR CAPILLARY Specime n Type: CAPILLARY Comment: AAMIR RN notified Test performed by: [id number] Meter #: [id number] Ordering Provider: FRANCK TURNER Report Released Date/Time: Sep 04, 2024 05:03 PM Reporting Lab: [address] [address] Performing Lab: [address] [address] GLUCOSE-HAND MONITOR 118 mg/dL H Sep 04, 2024 12:36 PM [facility] GLUCOSE-HAND MONITOR CAPILLARY Specime n Type: CAPILLARY Comment: AAMIR RN notified Test performed by: [id number] Meter #: [id number] Ordering Provider: FRANCK TURNER Report Released Date/Time: Sep 04, 2024 12:53 PM Reporting Lab: [address] [address] Performing Lab: [place] [address] GLUCOSE-HAND MONITOR 129 mg/dL H 71-99 Sep 04, 2024 12:03 PM [facility] RESPIRATORY VIRUS PANEL (BIOFIRE) NASOPHARYN X Specimen Type: NASOPHARYNX Comment: ~For Test: RESPIRATORY VIRUS PANEL (BIOFIRE) ~ORDER READ BACK TO: FRANCK TURNER 09/04/24@11:30 Ordering Provider: FRANCK TURNER Report Released Date/Time: Sep 04, 2024 11:33 AM Reporting Lab: [place] [id number] Performing Lab: [place] [id number] ADENOVIRUS (BIOFIRE) Not Detected -Not D etected [...] Sep 04, 2024 06:55 AM [facility] MAGNESIUM PLASMA Specimen Type: PLASM A Comment: [...] 03, 2024 11:10 AM Reporting Lab: [facility] [address] [facility] [address] Performing Lab: [place] [address] [facility] [address] MAGNESIUM 1.8 mg/dL 1.6-2.6 Sep 04, 2024 06:55 AM [facility] PANEL 1 PLASMA Specimen Type: PLASM A [...] Sep 03, 2024 11:10 AM Reporting Lab: [address] [address] Performing Lab: [address] CREATININE 0.75 mg/dL 0.72-1.25 UREA NITROGEN 13 mg/dL 9-25 GLUCOSE 105 mg/dL H 74-100 SODIUM 128 mmol/L L 136-145 POTASSIUM 3.9 mmol/L 3.5-5.1 CHLORIDE 99 mmol/L 98-107 CO2 21 mmol/L L 22-29 CALCIUM 8.0 mg/dL L 8.4-10.2 ANION GAP 8 meq/L 3-19 eGFR (CKD-EPI) >90 Sep 04, 2024 06:02 AM [facility] GLUCOSE-HAND MONITOR CAPILLARY Specime n Type: CAPILLARY Comment: Test performed by: [id number] Meter #: [id number] Ordering Provider: FRANCK TURNER Report Released Date/Time: Sep 04, 2024 06:28 AM Reporting Lab: [address] Performing Lab: [address] GLUCOSE-HAND MONITOR 114 mg/dL H 71-99 Sep 03, 2024 05:19 PM [facility] GLUCOSE-HAND MONITOR CAPILLARY Specime n Type: CAPILLARY Comment: Test performed by: [id number] Meter #: [id number] Ordering Provider: FRANCK TURNER Report Released Date/Time: Sep 03, 2024 05:37 PM Reporting Lab: [address] Performing Lab: [address] [address] GLUCOSE-HAND MONITOR 124 mg/dL H 71-99 Sep 03, 2024 04:41 PM [facility] GLUCOSE-HAND MONITOR CAPILLARY Specime n Type: CAPILLARY Comment: Test performed by: [id number] Meter #: [id number] Ordering Provider: FRANCK TURNER Report Released Date/Time: Sep 03, 2024 06:09 PM Reporting Lab: [address] [address] Performing Lab: [address] [address] GLUCOSE-HAND MONITOR 112 mg/dL H 71-99 Sep 03, 2024 01:35 PM [facility] URINE LYTES URINE Specimen Type : URINE Comment: ~Altered mental status with no identifiable cause Ordering Provider: FRANCK TURNER Report Released Date/Time: Sep 02, 2024 04:44 PM Reporting Lab: [address] [address] Performing Lab: [address] [address] SODIUM 130 mmol/L POTASSIUM 47.6 mmol/L CHLORIDE 137 mmol/L Sep 03, 2024 01:35 PM [facility] CREATININE URINE Specimen Type: URINE Comment: ~Altered mental status with no identifiable cause Ordering Provider: FRANCK TURNER Report Released Date/Time: Sep 02, 2024 04:44 PM Reporting Lab: [address] [address] Performing Lab: [address] [address] CREATININE 150.9 mg/dL Sep 03, 2024 01:35 PM [facility] UREA NITROGEN URINE Specimen Type : URINE Comment: ~Altered mental status with no identifiable cause Ordering Provider: FRANCK TURNER Report Released Date/Time: Sep 02, 2024 04:44 PM Reporting Lab: [address] [address] Performing Lab: [address] [address] UREA NITROGEN 320 mg/dL Sep 03, 2024 01:35 PM [facility] OSMOLALITY URINE Specimen Type: URINE Comment: ~Altered mental status with no identifiable cause Ordering Provider: FRANCK TURNER Report Released Date/Time: Sep 02, 2024 04:44 PM Reporting Lab: [address] [address] Performing Lab: [address] [address] OSMOLALITY 522 mosm/kg 38-1400 Sep 03, 2024 01:35 PM [facility] URINALYSIS WITH REFLEX TO CULTURE URINE Specimen Type: URINE Comment: ~Altered mental status with no identifiable cause Ordering Provider: FRANCK TURENR Report Released Date/Time: Sep 02, 2024 04:44 PM Reporting Lab: [address] [address] Performing Lab: [address] [address] URINE COLOR Yellow Colorless-Yellow APPEARANCE CLOUDY H [...] Sep 03, 2024 11:58 AM [facility] GLUCOSE-HAND MONITOR CAPILLARY Specime n Type: CAPILLARY Comment: AAMIR RN notified Test performed by: [id number] Meter #: [id number] Ordering Provider: FRANCK TURNER Report Released Date/Time: Sep 03, 2024 12:15 PM Reporting Lab: [address] [address] Performing Lab: [address] [address] GLUCOSE-HAND MONITOR 135 mg/dL H Sep 03, 2024 07:09 AM [facility] GLUCOSE-HAND MONITOR CAPILLARY Specime n Type: CAPILLARY Comment: Test performed by: [id number] Meter #: [id number] Ordering Provider: FRANCK TURNER Report Released Date/Time: Sep 03, 2024 07:26 AM Reporting Lab: [address] [address] Performing Lab: [address] [address] GLUCOSE-HAND MONITOR 120 mg/dL H -Sep 03, 2024 07:05 AM [facility] CBC/PLT BLOOD Specimen Type: BLOOD No comment entered. Ordering Provider: FRANCK TURNER Report Released Date/Time: Sep 02, 2024 04:29 PM Reporting Lab: [address] [address] Performing Lab: [address] [address] WBC 6.9 10*3/uL 5.0-10.0 RBC 3.48 10*6/uL L 4.6-6.2 HGB 9.5 g/dL L 14.0-18.0 HCT 29.1 L 42.0-52.0 MCV 83.6 fL 80.0-94.0 MCH 27.3 pg 27.0-31.0 MCHC 32.6 g/dL 32.0-36.0 PLT 258 10*3/uL 150-450 MPV 10.3 fL 9.0-13.1 RDW 14.8 11.0-16.0 NRBC 0.0 0.0-0.0 Sep 03, 2024 07:05 AM [facility] MAGNESIUM PLASMA Specimen Type: PLASM A Comment: [...] 02, 2024 04:29 PM Reporting Lab: [address] [address] Performing Lab: [address] [address] MAGNESIUM 1.7 mg/dL 1.6-2.6 Sep 03, 2024 07:05 AM [facility] PANEL 1 PLASMA Specimen Type: PLASM A [...] 02, 2024 04:29 PM Reporting Lab: [address] [address] Performing Lab: [address] [address] CREATININE 0.82 mg/dL 0.72-1.25 UREA NITROGEN 12 mg/dL 9-25 GLUCOSE 109 mg/dL H 74-100 SODIUM 129 mmol/L L 136-145 POTASSIUM 4.2 mmol/L 3.5-5.1 CHLORIDE 99 mmol/L 98-107 CO2 21 mmol/L L 22-29 CALCIUM 8.1 mg/dL L 8.4-10.2 ANION GAP 9 meq/L 3-19 eGFR (CKD-EPI) 90 Sep 03, 2024 07:05 AM [facility] GLYCOHEMOGLOBIN BLOOD Specimen Type: BLOOD Comment: Prediabetes: 5.7%-6.4% Diabetes: >= 6.5% [place] guidelines for A1c interpretation: Glycemic control [...] 8.73 and 9.27. Ref: https://ngsp.org/CAPdata.asp. The in-house Zipidee-Ubiterra D-100 analyzer has a historical CV <= 2%. Contact the laboratory for further performance characteristics of this assay. Ordering Provider: FRANCK TURNER Report Released Date/Time: Sep 02, 2024 04:29 PM Reporting Lab: [address] [address] Performing Lab: [place] [id number] GLYCOHEMOGLOBIN 5.6 4.4-5.6 Sep 03, 2024 07:05 AM [facility] OSMOLALITY SERUM Specimen Type: SERUM No comment entered. Ordering Provider: FRANCK TURNER Report Released Date/Time: Sep 02, 2024 04:44 PM Reporting Lab: [address] [address] Performing Lab: [address] [address] OSMOLALITY 271 mosm/kg L 280-300 Sep 02, 2024 08:15 PM [facility] GLUCOSE-HAND MONITOR CAPILLARY Specime n Type: CAPILLARY Comment: AAMIR DEXTER notified Test performed by: [id number] Meter #: [id number] Ordering Provider: FRANCK TURNER Report Released Date/Time: Sep 02, 2024 08:57 PM Reporting Lab: [address] [address] Performing Lab: [address] [address] GLUCOSE-HAND MONITOR 126 mg/dL H 71-99 Sep 02, 2024 06:10 PM [facility] MRSA SURVL NARES DNA NARES Specime n [...] 02, 2024 05:12 PM Reporting Lab: [address] [address] Performing Lab: [address] [address] MRSA SURVL NARES DNA Negative Negative Sep 02, 2024 05:36 PM [facility] GLUCOSE-HAND MONITOR CAPILLARY Specime n Type: CAPILLARY Comment: Test performed by: [id number] Meter #: [id number] Ordering Provider: FRANCK TURNER Report Released Date/Time: Sep 02, 2024 05:53 PM Reporting Lab: [address] [address] Performing Lab: [address] [address] GLUCOSE-HAND MONITOR 127 mg/dL H 71-99 Aug 29, 2024 10:04 PM [facility] URINALYSIS WITH REFLEX TO CULTURE URINE Specimen Type: URINE Comment: ~For Test: URINALYSIS WITH REFLEX TO CULTURE ~REORDER Ordering Provider: FELISA COLE Report Released Date/Time: Aug 29, 2024 09:36 PM Reporting Lab: [address] [address] Performing Lab: [address] [address] URINE COLOR Yellow Colorless-Yellow APPEARANCE Clear Clear [...] 0-28 Aug 29, 2024 08:32 PM [facility] HIGH SENSITIVITY TROPONIN I PLASMA [...] 29, 2024 07:55 PM Reporting Lab: [address] [address] Performing Lab: [address] [address] HIGH SENSITIVITY TROPONIN I 7 4-35 Aug 29, 2024 08:32 PM [facility] CBC/PLT BLOOD Specimen Type: BLOOD No comment entered. Ordering Provider: FELISA COLE Report Released Date/Time: Aug 29, 2024 07:55 PM Reporting Lab: [address] [address] Performing Lab: [address] [address] WBC 11.2 10*3/uL H 5.0-10.0 RBC 3.97 10*6/uL L 4.6-6.2 HGB 10.9 g/dL L 14.0-18.0 HCT 33.5 L 42.0-52.0 MCV 84.4 fL 80.0-94.0 MCH 27.5 pg 27.0-31.0 MCHC 32.5 g/dL 32.0-36.0 PLT 230 10*3/uL 150-450 MPV 10.2 fL 9.0-13.1 RDW 14.6 11.0-16.0 NRBC 0.0 0.0-0.0 Aug 29, 2024 08:32 PM [facility] PANEL 5 PLASMA Specimen Type: [...] 29, 2024 07:55 PM Reporting Lab: [address] [address] Performing Lab: [address] [address] CREATININE 0.85 mg/dL 0.72-1.25 UREA NITROGEN 15 [...] 18 /min 96 % 0 [place] [facility] Sep 08, 2024 09:03 PM 0 [place] [facility] Sep 08, 2024 03:46 PM 97.7 F 76 /min 148/70 mm[Hg] 16 /min 96 % 0 [place] [facility] Sep 08, 2024 11:42 AM 97.4 F 67 /min 125/69 mm[Hg] 92 % [place] [facility] Sep 08, 2024 09:30 AM 0 [place] [facility] [...] 08, 2024 ADVANCE DIRECTIVE DISCUSSION [facility] Radiology Reports: +/- 30 [...] BRAIN W & W/O: LUIS MANUEL PERDOMO [id number] -1945 M Exm Date: SEP 06, 2024@13:40 Req Phys: FRANCK TURNER [facility] Loc: 5-MED/TEL/09-06-2024@19:09 Img Loc: [facility] Service: [place] [address] (Case [id number] COMPLETE) MRI BRAIN W & W/O (MRI Detailed) CPT:55488 Contrast Media : Gadolinium Reason for Study: SEE CLINICAL HISTORY Pharmaceutical: GADOTERIDOL 279.3MG/ML 20ML INJ, 19ml Clinical History: MRI Screening (Required): IMPLANTED DEVICE DOCUMENTATION IMPLANTED DEVICE DOCUMENTATION NOT FOUND Does the [place] have any Cardiac Implants? None Does the have any implanted stimulators? None Does the [place] have cochlear implants? No Does the have Cerebral aneurysm clip(s)? I don't know Does the [place] have any shrapnel? I don't know If [...] 06, 2024 Date Verified: SEP 06, 2024 Senior Fire Protection Engineer E-Sig: Report: MRI brain without and [...] Staff: ARCENIO LEYVA, Staff Radiologist Verified by economic analysis director for ARCENIO LEYVA /[facility] Sep 06, 2024 01:40 PM MRI C SPINE W & W/ O CONTRAST(FURTHER SEQUENCES): LUIS MANUEL PERDOMO [id number] -1945 M Exm Date: SEP 06, 2024@13:40 Req Phys: FRANCK TURNER Pat Loc: 5-MED/TEL/09-07-2024@06:42 Img Loc: [facility] Service: [place] [address] (Case [id number] COMPLETE) MRI C SPINE W & W/O CONTRAST(FURT(MRI Detailed) CPT:83290 Contrast Media : Gadolinium Reason for Study: SEE CLINICAL HISTORY Pharmaceutical: GADOTERIDOL 279.3MG/ML 20ML INJ, 19ml Clinical History: STATUS OF PLAIN FILMS:Not performed (Provide justification for MR W/O prior plain films below.) MRI for MS MRI Screening (Required): IMPLANTED DEVICE DOCUMENTATION IMPLANTED DEVICE DOCUMENTATION NOT FOUND Does the [place] have any Cardiac Implants? None Does the [place] have any implanted stimulators? None Does the have cochlear implants? No Does the [place] have Cerebral aneurysm clip(s)? I don't know Does the [place] have any shrapnel? I don't know If [...] 07, 2024 Date Verified: SEP 07, 2024 Senior Fire Protection Engineer E-Sig: Report: EXAMINATION: MRI OF THE [...] Interpreting Staff: HUANG TAI, Radiologist Verified by economic analysis director for HUANG TAI /[facility] Sep 03, 2024 10:45 AM CHEST SINGLE(1) EW: LUIS MANUEL PERDOMO [id number] -1945 M Exm Date: SEP 03, 2024@10:45 Req Phys: FRANCK TURNER Pat Loc: 5-MED/TEL/09-03-2024@10:56 Img Loc: [facility] Service: [place] [address] (Case [id number] COMPLETE)CHEST SINGLE(1) VIEW (RAD Detailed) CPT:40539 Proc Modifiers : PORTABLE EXAM Reason for Study: Eval volume status Clinical History: Report Status: Verified Date Reported: SEP 03, 2024 Date Verified: SEP 03, 2024 Senior Fire Protection Engineer E-Sig: Report: EXAMINATION: SINGLE VIEW CHEST [...] Interpreting Staff: HUANG TAI, Radiologist Verified by economic analysis director for HUANG TAI /HUANG [facility] Aug 29, 2024 08:[address] HEAD W/O CONT: LUIS MANUEL PERDOMO [id number] -1945 M Exm Date: AUG 29, 2024@20:28 Req Phys: FELISA COLE Loc: ED/4P-12A (Req'g Loc) Img Loc: CT SCAN Service: Unknown [place] [id number] (Case [id number] COMPLETE) CT HEAD W/O CONT (CT Detailed) CPT:09255 Reason for Study: SEE CLINICAL HISTORY Clinical History: REASON FOR SEND OUT: ATTENDING PHYSICIAN NAME: New transient neurological s/s - suspected TIA HISTORY/REASON FOR EXAM: confusion Report Status: Verified Date Reported: AUG 29, 2024 Date Verified: AUG 29, 2024 Senior Fire Protection Engineer E-Sig: Report: HISTORY confusion COMPARISON No [...] Calvarium is intact Electronically signed by: Abdirahman Crwo MD (August 29 2024 09:36 PM EST) Impression: No acute intracranial pathology. Primary Diagnostic Code: NO ALERT REQUIRED Primary Interpreting Staff: ABDIRAHMAN CROW, Staff Physician Verified by economic analysis director for ABDIRAHMAN CROW /ABDIRAHMAN [facility] [...] [place] from all [place] treatment [place]. Date/Time Pathology Report Provider Source Sep 03, 2024 01:35 PM LR MICROBIOLOGY RE PORT: Reporting Lab: [facility] [CLIA# [id number]] [address] [place] [id number] Accession [UID]: [id number] [[id number]] Received: Sep 03, 2024@14:02 Collection sample: URINE, [...] Report Performed By: [facility] [CLIA# [id number]] [address] [place] [id number] BHARATI,MAGDY D [facility] Sep 02, 2024 06:00 PM LR MICROBIOLOGY RE PORT: Reporting Lab: [facility] [facility] [CLIA# [id number]] [address] [place] [address] Accession [UID]: [id number] [[id number]] Received: Sep 02, 2024@18:07 Collection sample: BLD CULTURE BOTTLES Collection date: Sep 02, 2024 18:00 Site/Specimen: BLOOD Provider: FRANCK TURNER Comment on specimen: L HAND Test(s) ordered: CULTURE, BLOOD................ completed: Sep 08, 2024 * BACTERIOLOGY FINAL REPORT => Sep 08, 2024 08:25 TECH CODE: [id number] Bacteriology Remark(s): Blood culture status=NO GROWTH (unless notified otherwise) 09/03/2024 AEROBIC: NO GROWTH ANAEROBIC: NO GROWTH =--=--=--=--=--=--=--=--=--=-- =--=--=--=--=--=--=--=--=--=-- =--=--=--=--=--=-- Performing Laboratory: Bacteriology Report Performed By: [facility] [CLIA# [id number]] [address] [place], [place] [id number] MAGDY CALABRESE [facility] Aug 29, 2024 10:18 PM LR MICROBIOLOGY RE PORT: Reporting Lab: [facility] [CLIA# [id number]] [address] [place], [place] [id number] Accession [UID]: [id number] [[id number]] Received: Aug 29, 2024@22:18 Collection sample: URINE, CLEAN CATCH Collection date: Aug 29, 2024 22:18 Site/Specimen: URINE Provider: FELISA COLE Test(s) ordered: CULTURE, URINE................ completed: Aug 31, 2024 09:51 * BACTERIOLOGY FINAL REPORT => Aug 31, 2024 09:51 TECH CODE: [id number] Bacteriology Remark(s): NO GROWTH 08/30/2024 <10,000 CFU/ML. 08/31/2024 =--=--=--=--=--=--=--=--=--=-- =--=--=--=--=--=--=--=--=--=-- =--=--=--=--=--=-- Performing Laboratory: Bacteriology Report Performed By: [facility] [CLIA# [id number]] [address] [place] [address] MAGDY CALABRESE[facility]
--- OUTSIDE RECORDS SUMMARY | 2024-09-08 18:41 | XMS_ITS ---
[place] DAILY HOSPITALIZATION DATA [facility] Encounter Summary Created on: September 22, 2024 LUIS MANUEL PERDOMO : 1945 Sex: Male Author Name [facility] Organization [facility] Address [address] [place] [address] Care Team Providers Care Jacket Preparer Name Role Phone YULISSA HENDERSON Primary Care [...] PLAN F Mar 24, 2014 PLAN F [id number] [phone] LUIS MANUEL PERDOMO PATIENT [facility] [place] [facility]U[place] PREFERRED PROVIDER ORGANIZAT ION (PPO) [facility] SLE Sep 21, 2012 [id number] LUIS MANUEL PERDOMO PATIENT [employer] ([id number]) PRESCRIPT ION [id number] Sep 21, 2012 [id number] LUIS MANUEL PERDOMO PATIENT MEDICARE (WNR) MEDICARE (M) PART B Sep 21, 2012 PART B [id number] NOEMI PERDOMO PATIENT MEDICARE (WNR) MEDICARE (M) PART A Jan 22, 2011 PART A [id number] [phone] LEANNE, NOEMI PATIENT MEDICARE PART D (WNR) MEDICARE (M) PART D Mar 24, 2014 PART D [id number] LUIS MANUEL PERDOMO PATIENT Selected Encounter This section includes the information on record at [place] for the Encounter. Date/Time Encounter Type Encounter Description Reason Pro vider Source Sep 08, 2024 10:41 PM Inpatient Visit DAILY HOSPITALIZATION DATA [facility] Encounter Template Text not used by [place] Plan of Treatment: Future Appointments (+ 6 months) and Future Tests (+/- 45 days) The Plan of Treatment section includes future care activities for the [facility] [place] [facility] This section includes future appointments and future orders which are active, pending or scheduled. Future Appointments This section includes appointments that were scheduled to occur 6 months from the date of the Encounter, up to a maximum of 20 appointments. The data comes from all [place] treatment facilities. Appointment Date/Time Appointment Type Appointme nt Facility Name Sep 13, 2024 08:00 AM AMBULATORY - NONE [facility] Sep 30, 2024 01:30 PM AMBULATORY - SURGERY [facility] Active, Pending, and Scheduled Orders [...] [facility] SKILLED HOME CARE Cons Escort Patients's Choice [facility] Lab Results: +/- 30 days of the encounter This section includes the Chemistry and Hematology Lab Results on record with [place] for the patient. Radiology Reports and Pathology [...] Specimen Type: CAPILLARY Comment: Test performed by: [id number] Meter #: [id number] Ordering Provider: FRANCK TURNER Report Released Date/Time: Sep 09, 2024 12:33 PM Reporting Lab: [address] [address] Performing Lab: [address] [address] GLUCOSE-HAND MONITOR 116 mg/dL H Sep 09, 2024 06:07 AM [facility] GLUCOSE-HAND MONITOR CAPILLARY Specime n Type: CAPILLARY Comment: Test performed by: [id number] Meter #: [id number] Ordering Provider: FRANCK TURNER Report Released Date/Time: Sep 09, 2024 08:17 AM Reporting Lab: [address] [address] Performing Lab: [address] [address] GLUCOSE-HAND MONITOR 112 mg/dL H Sep 08, 2024 09:13 PM [facility] GLUCOSE-HAND MONITOR CAPILLARY Specime n Type: CAPILLARY Comment: Test performed by: [id number] Meter #: [id number] Ordering Provider: FRANCK TURNER Report Released Date/Time: Sep 08, 2024 09:31 PM Reporting Lab: [address] [address] Performing Lab: [address] [address] GLUCOSE-HAND MONITOR 107 mg/dL H Sep 08, 2024 03:49 PM [facility] GLUCOSE-HAND MONITOR CAPILLARY Specime n Type: CAPILLARY Comment: AAMIR RN notified Test performed by: [id number] Meter #: [id number] Ordering Provider: FRANCK TURNER Report Released Date/Time: Sep 08, 2024 04:33 PM Reporting Lab: [address] [address] Performing Lab: [address] [address] GLUCOSE-HAND MONITOR 162 mg/dL H Sep 08, 2024 11:43 AM [facility] GLUCOSE-HAND MONITOR CAPILLARY Specime n Type: CAPILLARY Comment: AAMIR RN notified Test performed by: [id number] Meter #: [id number] Ordering Provider: FRANCK TURNER Report Released Date/Time: Sep 08, 2024 12:03 PM Reporting Lab: [address] [address] Performing Lab: [address] [address] GLUCOSE-HAND MONITOR 133 mg/dL H Sep 08, 2024 06:13 AM [facility] GLUCOSE-HAND MONITOR CAPILLARY Specime n Type: CAPILLARY Comment: Test performed by: [id number] Meter #: [id number] Ordering Provider: FRANCK TURNER Report Released Date/Time: Sep 08, 2024 06:46 AM Reporting Lab: [address] [address] Performing Lab: [address] [address] GLUCOSE-HAND MONITOR 104 mg/dL H Sep 07, 2024 07:59 PM [facility] GLUCOSE-HAND MONITOR CAPILLARY Specime n Type: CAPILLARY Comment: Test performed by: [id number] Meter #: [id number] Ordering Provider: FRANCK TURNER Report Released Date/Time: Sep 07, 2024 09:05 PM Reporting Lab: [address] [address] Performing Lab: [address] [address] GLUCOSE-HAND MONITOR 107 mg/dL H Sep 07, 2024 04:39 PM [facility] GLUCOSE-HAND MONITOR CAPILLARY Specime n Type: CAPILLARY Comment: Test performed by: [id number] Meter #: [id number] Ordering Provider: FRANCK TURNER Report Released Date/Time: Sep 07, 2024 05:09 PM Reporting Lab: [address] [address] Performing Lab: [address] [address] GLUCOSE-HAND MONITOR 105 mg/dL H Sep 07, 2024 11:41 AM [facility] GLUCOSE-HAND MONITOR CAPILLARY Specime n Type: CAPILLARY Comment: Test performed by: [id number] Meter #: [id number] Ordering Provider: FRANCK TURNER Report Released Date/Time: Sep 07, 2024 12:41 PM Reporting Lab: [address] [address] Performing Lab: [address] [address] GLUCOSE-HAND MONITOR 144 mg/dL H Sep 07, 2024 05:56 AM [facility] GLUCOSE-HAND MONITOR CAPILLARY Specime n Type: CAPILLARY Comment: Test performed by: [id number] Meter #: [id number] Ordering Provider: FRANCK TURNER Report Released Date/Time: Sep 07, 2024 06:31 AM Reporting Lab: [address] [address] Performing Lab: [address] [address] GLUCOSE-HAND MONITOR 96 mg/dL Sep 06, 2024 08:10 PM [facility] GLUCOSE-HAND MONITOR CAPILLARY Specime n Type: CAPILLARY Comment: Test performed by: [id number] Meter #: [id number] Ordering Provider: FRANCK TURNER Report Released Date/Time: Sep 06, 2024 08:52 PM Reporting Lab: [address] [address] Performing Lab: [address] [address] GLUCOSE-HAND MONITOR 124 mg/dL H Sep 06, 2024 04:27 PM [facility] GLUCOSE-HAND MONITOR CAPILLARY Specime n Type: CAPILLARY Comment: Test performed by: [id number] Meter #: [id number] Ordering Provider: FRANCK TURNER Report Released Date/Time: Sep 06, 2024 05:15 PM Reporting Lab: [address] [address] Performing Lab: [address] [address] GLUCOSE-HAND MONITOR 107 mg/dL H Sep 06, 2024 12:12 PM [facility] GLUCOSE-HAND MONITOR CAPILLARY Specime n Type: CAPILLARY Comment: Test performed by: [id number] Meter #: [id number] Ordering Provider: FRANCK TURNER Report Released Date/Time: Sep 06, 2024 12:29 PM Reporting Lab: [address] [address] Performing Lab: [address] [address] GLUCOSE-HAND MONITOR 181 mg/dL H -Sep 06, 2024 06:13 AM [facility] GLUCOSE-HAND MONITOR CAPILLARY Specime n Type: CAPILLARY Comment: Test performed by: [id number] Meter #: [id number] Ordering Provider: FRANCK TURNER Report Released Date/Time: Sep 06, 2024 06:36 AM Reporting Lab: [address] [address] Performing Lab: [address] [address] GLUCOSE-HAND MONITOR 102 mg/dL H Sep 05, 2024 08:47 PM [facility] GLUCOSE-HAND MONITOR CAPILLARY Specime n Type: CAPILLARY Comment: Test performed by: [id number] Meter #: [id number] Ordering Provider: FRANCK TURNER Report Released Date/Time: Sep 06, 2024 02:13 AM Reporting Lab: [address] [address] Performing Lab: [address] [address] GLUCOSE-HAND MONITOR 103 mg/dL H Sep 05, 2024 04:40 PM [facility] GLUCOSE-HAND MONITOR CAPILLARY Specime n Type: CAPILLARY Comment: AAMIR RN notified Test performed by: [id number] Meter #: [id number] Ordering Provider: FRANCK TURNER Report Released Date/Time: Sep 05, 2024 05:11 PM Reporting Lab: [address] [address] Performing Lab: [address] [address] GLUCOSE-HAND MONITOR 113 mg/dL H Sep 05, 2024 12:06 PM [facility] GLUCOSE-HAND MONITOR CAPILLARY Specime n Type: CAPILLARY Comment: Test performed by: [id number] Meter #: [id number] Ordering Provider: FRANCK TURNER Report Released Date/Time: Sep 05, 2024 12:23 PM Reporting Lab: [address] [address] Performing Lab: [address] [address] GLUCOSE-HAND MONITOR 115 mg/dL H Sep 05, 2024 06:26 AM [facility] GLUCOSE-HAND MONITOR CAPILLARY Specime n Type: CAPILLARY Comment: AAMIR Correction Dose Test performed by: [id number] Meter #: [id number] Ordering Provider: FRANCK TURNER Report Released Date/Time: Sep 05, 2024 06:43 AM Reporting Lab: [address] [address] Performing Lab: [address] [address] GLUCOSE-HAND MONITOR 111 mg/dL H Sep 04, 2024 08:59 PM [facility] GLUCOSE-HAND MONITOR CAPILLARY Specime n Type: CAPILLARY Comment: AAMIR RN notified Test performed by: [id number] Meter #: [id number] Ordering Provider: FRANCK TURNER Report Released Date/Time: Sep 04, 2024 09:36 PM Reporting Lab: [address] [address] Performing Lab: [address] [address] GLUCOSE-HAND MONITOR 123 mg/dL H Sep 04, 2024 04:41 PM [facility] GLUCOSE-HAND MONITOR CAPILLARY Specime n Type: CAPILLARY Comment: AAMIR RN notified Test performed by: [id number] Meter #: [id number] Ordering Provider: FRANCK TURNER Report Released Date/Time: Sep 04, 2024 05:03 PM Reporting Lab: [address] [address] Performing Lab: [address] [address] GLUCOSE-HAND MONITOR 118 mg/dL H Sep 04, 2024 12:36 PM [facility] GLUCOSE-HAND MONITOR CAPILLARY Specime n Type: CAPILLARY Comment: AAMIR RN notified Test performed by: [id number] Meter #: [id number] Ordering Provider: FRANCK TURNER Report Released Date/Time: Sep 04, 2024 12:53 PM Reporting Lab: [address] [address] Performing Lab: [place] [address] GLUCOSE-HAND MONITOR 129 mg/dL H 71-99 Sep 04, 2024 12:03 PM [facility] RESPIRATORY VIRUS PANEL (BIOFIRE) NASOPHARYN X Specimen Type: NASOPHARYNX Comment: ~For Test: RESPIRATORY VIRUS PANEL (BIOFIRE) ~ORDER READ BACK TO: FRANCK TURNER 09/04/24@11:30 Ordering Provider: FRANCK TURNER Report Released Date/Time: Sep 04, 2024 11:33 AM Reporting Lab: [place] [id number] Performing Lab: [place] [id number] ADENOVIRUS (BIOFIRE) Not Detected -Not D etected [...] Lab: [facility] [address] [facility] [address] Performing Lab: [place] [address] [facility] [address] MAGNESIUM 1.8 mg/dL 1.6-2.6 Sep 04, 2024 [...] Sep 03, 2024 11:10 AM Reporting Lab: [address] [address] Performing Lab: [address] CREATININE 0.75 mg/dL 0.72-1.25 UREA NITROGEN [...] n Type: CAPILLARY Comment: Test performed by: [id number] Meter #: [id number] Ordering Provider: FRANCK TURNER Report Released Date/Time: Sep 04, 2024 06:28 AM Reporting Lab: [address] Performing Lab: [address] GLUCOSE-HAND MONITOR 114 mg/dL H 71-99 Sep 03, 2024 05:19 PM [facility] GLUCOSE-HAND MONITOR CAPILLARY Specime n Type: CAPILLARY Comment: Test performed by: [id number] Meter #: [id number] Ordering Provider: FRANCK TURNER Report Released Date/Time: Sep 03, 2024 05:37 PM Reporting Lab: [address] Performing Lab: [address] [address] GLUCOSE-HAND MONITOR 124 mg/dL H 71-99 Sep 03, 2024 04:41 PM [facility] GLUCOSE-HAND MONITOR CAPILLARY Specime n Type: CAPILLARY Comment: Test performed by: [id number] Meter #: [id number] Ordering Provider: FRANCK TURNER Report Released Date/Time: Sep 03, 2024 06:09 PM Reporting Lab: [address] [address] Performing Lab: [address] [address] GLUCOSE-HAND MONITOR 112 mg/dL H 71-99 Sep 03, 2024 01:35 PM [facility] CREATININE URINE Specimen Type: URINE Comment: ~Altered mental status with no identifiable cause Ordering Provider: FRANCK TURNER Report Released Date/Time: Sep 02, 2024 04:44 PM Reporting Lab: [facility] [address] [place] [address] Performing Lab: [address] [address] CREATININE 150.9 mg/dL Sep 03, 2024 01:35 PM [facility] URINE LYTES URINE Specimen Type : URINE Comment: ~Altered mental status with no identifiable cause Ordering Provider: FRANCK TURNER Report Released Date/Time: Sep 02, 2024 04:44 PM Reporting Lab: [address] [address] Performing Lab: [address] [address] SODIUM 130 mmol/L POTASSIUM 47.6 mmol/L CHLORIDE 137 mmol/L Sep 03, 2024 01:35 PM [facility] UREA NITROGEN URINE Specimen Type : URINE Comment: ~Altered mental status with no identifiable cause Ordering Provider: FRANCK TURNER Report Released Date/Time: Sep 02, 2024 04:44 PM Reporting Lab: [address] [address] Performing Lab: [address] [address] UREA NITROGEN 320 mg/dL Sep 03, 2024 01:35 PM [facility] URINALYSIS WITH REFLEX TO CULTURE URINE Specimen Type: URINE Comment: ~Altered mental status with no identifiable cause Ordering Provider: FRANCK TURNER Report Released Date/Time: Sep 02, 2024 04:44 PM Reporting Lab: [address] [address] Performing Lab: [address] [address] URINE COLOR Yellow Colorless-Yellow APPEARANCE CLOUDY H [...] H 0-28 Sep 03, 2024 01:35 PM [facility] OSMOLALITY URINE Specimen Type: URINE Comment: ~Altered mental status with no identifiable cause Ordering Provider: FRANCK TURNER Report Released Date/Time: Sep 02, 2024 04:44 PM Reporting Lab: [place] [id number] Performing Lab: [place] [id number] OSMOLALITY 522 mosm/kg 38-1400 Sep 03, 2024 11:58 AM [facility] GLUCOSE-HAND MONITOR CAPILLARY Specime n Type: CAPILLARY Comment: AAMIR RN notified Test performed by: [id number] Meter #: [id number] Ordering Provider: FRANCK TURNER Report Released Date/Time: Sep 03, 2024 12:15 PM Reporting Lab: [address] [address] Performing Lab: [address] [address] GLUCOSE-HAND MONITOR 135 mg/dL H Sep 03, 2024 07:09 AM [facility] GLUCOSE-HAND MONITOR CAPILLARY Specime n Type: CAPILLARY Comment: Test performed by: [id number] Meter #: [id number] Ordering Provider: FRANCK TURNER Report Released Date/Time: Sep 03, 2024 07:26 AM Reporting Lab: [address] [address] Performing Lab: [address] [address] GLUCOSE-HAND MONITOR 120 mg/dL H Sep 03, 2024 07:05 AM [facility] CBC/PLT BLOOD Specimen Type: BLOOD No comment entered. Ordering Provider: FRANCK TURNER Report Released Date/Time: Sep 02, 2024 04:29 PM Reporting Lab: [address] [address] Performing Lab: [address] [address] WBC 6.9 10*3/uL 5.0-10.0 RBC 3.48 10*6/uL [...] Sep 02, 2024 04:29 PM Reporting Lab: [address] [address] Performing Lab: [address] [address] MAGNESIUM 1.7 mg/dL 1.6-2.6 Sep 03, 2024 [...] Sep 02, 2024 04:29 PM Reporting Lab: [address] [address] Performing Lab: [address] [address] CREATININE 0.82 mg/dL 0.72-1.25 UREA NITROGEN 12 [...] BLOOD Comment: Prediabetes: 5.7%-6.4% Diabetes: >= 6.5% [place] guidelines for A1c interpretation: Glycemic control targets are based on Shared Decision Making between clinicians and patients. Criteria used to establish an A1c target recommendation can be found at https://www.[place].gov/qualityandpatientsafety/ and include the use of result accuracy [...] 8.73 and 9.27. Ref: https://ngsp.org/CAPdata.asp. The in-house Signpost-AppZero D-100 analyzer has a historical CV <= 2%. Contact the laboratory for further performance characteristics of this assay. Ordering Provider: FRANCK TURNER Report Released Date/Time: Sep 02, 2024 04:29 PM Reporting Lab: [address] [address] Performing Lab: [place] [id number] GLYCOHEMOGLOBIN 5.6 4.4-5.6 Sep 03, 2024 07:05 AM [facility] OSMOLALITY SERUM Specimen Type: SERUM No comment entered. Ordering Provider: FRANCK TURNER Report Released Date/Time: Sep 02, 2024 04:44 PM Reporting Lab: [address] [address] Performing Lab: [address] [address] OSMOLALITY 271 mosm/kg L 280-300 Sep 02, 2024 08:15 PM [facility] GLUCOSE-HAND MONITOR CAPILLARY Specime n Type: CAPILLARY Comment: AAMIR DEXTER notified Test performed by: [id number] Meter #: [id number] Ordering Provider: FRANCK TURNER Report Released Date/Time: Sep 02, 2024 08:57 PM Reporting Lab: [address] [address] Performing Lab: [address] [address] GLUCOSE-HAND MONITOR 126 mg/dL H 71-99 Sep [...] Sep 02, 2024 05:12 PM Reporting Lab: [address] [address] Performing Lab: [address] [address] MRSA SURVL NARES DNA Negative Negative Sep 02, 2024 05:36 PM [facility] GLUCOSE-HAND MONITOR CAPILLARY Specime n Type: CAPILLARY Comment: Test performed by: [id number] Meter #: [id number] Ordering Provider: FRANCK TURNER Report Released Date/Time: Sep 02, 2024 05:53 PM Reporting Lab: [address] [address] Performing Lab: [address] [address] GLUCOSE-HAND MONITOR 127 mg/dL H 71-99 Aug 29, 2024 10:04 PM [facility] URINALYSIS WITH REFLEX TO CULTURE URINE Specimen Type: URINE Comment: ~For Test: URINALYSIS WITH REFLEX TO CULTURE ~REORDER Ordering Provider: FELISA COLE Report Released Date/Time: Aug 29, 2024 09:36 PM Reporting Lab: [address] [address] Performing Lab: [address] [address] URINE COLOR Yellow Colorless-Yellow APPEARANCE Clear Clear [...] /[LPF] 0-28 Aug 29, 2024 08:32 PM [facility] HIGH SENSITIVITY TROPONIN I PLASMA [...] 07:55 PM Reporting Lab: [address] [address] Performing Lab: [address] [address] HIGH SENSITIVITY TROPONIN I 7 4-35 Aug 29, 2024 08:32 PM [facility] CBC/PLT BLOOD Specimen Type: BLOOD No comment entered. Ordering Provider: FELISA COLE Report Released Date/Time: Aug 29, 2024 07:55 PM Reporting Lab: [address] [address] Performing Lab: [address] [address] WBC 11.2 10*3/uL H 5.0-10.0 RBC 3.97 10*6/uL L 4.6-6.2 HGB 10.9 g/dL L 14.0-18.0 HCT 33.5 L 42.0-52.0 MCV 84.4 fL 80.0-94.0 MCH 27.5 pg 27.0-31.0 MCHC 32.5 g/dL 32.0-36.0 PLT 230 10*3/uL 150-450 MPV 10.2 fL 9.0-13.1 RDW 14.6 11.0-16.0 NRBC 0.0 0.0-0.0 Aug 29, 2024 08:32 PM [facility] PANEL 5 PLASMA Specimen Type: [...] 07:55 PM Reporting Lab: [address] [address] Performing Lab: [address] [address] CREATININE 0.85 mg/dL 0.72-1.25 UREA NITROGEN 15 [...] 18 /min 96 % 0 [place] Sep 08, 2024 09:03 PM 0 [place] [facility] Sep 08, 2024 03:46 PM 97.7 F 76 /min 148/70 mm[Hg] 16 /min 96 % 0 [place] [facility] Sep 08, 2024 11:42 AM 97.4 F 67 /min 125/69 mm[Hg] 92 % [place] [facility] Sep 08, 2024 09:30 AM 0 [place] [facility] Advance Directives: All historical and current Section Date Range: From patient's date of to the date document was created. This section includes ALL of a patient's completed or amended [place] Advance and Rescinded Directives. The entries below indicate that a directive exists for the patient, but an actual copy is not included with this document. The data comes from all [place] facilities. Date Advance Directives Provider Source Mar 08, 2024 ADVANCE DIRECTIVE DISCUSSION [facility] Radiology Reports: +/- 30 days [...] the Encounter. The data comes from all [place] treatment facilities. Date/Time Radiology Report Provider Source Sep 06, 2024 01:40 PM MRI BRAIN W & W/O: LUIS MANUEL PERDOMO [id number] -1945 M Exm Date: SEP 06, 2024@13:40 Req Phys: FRANCK TURNER [facility] Loc: 5-MED/TEL/09-06-2024@19:09 Img Loc: [facility] Service: [place] [address] (Case [id number] COMPLETE) MRI BRAIN W & W/O (MRI Detailed) CPT:27491 Contrast Media : Gadolinium Reason for Study: SEE CLINICAL HISTORY Pharmaceutical: GADOTERIDOL 279.3MG/ML 20ML INJ, 19ml Clinical History: MRI Screening (Required): IMPLANTED DEVICE DOCUMENTATION IMPLANTED DEVICE DOCUMENTATION NOT FOUND Does the [place] have any Cardiac Implants? None Does the have any implanted stimulators? None Does the [place] have cochlear implants? No Does the have Cerebral aneurysm clip(s)? I don't know Does the [place] have any shrapnel? I don't know If [...] 06, 2024 Date Verified: SEP 06, 2024 Spring [facility] E-Sig: Report: MRI brain without and with [...] Staff: ARCENIO LEYVA, Staff Radiologist Verified by glueline worker for ARCENIO LEYVA /ARCENIO AVILA-[facility] Sep 06, 2024 01:40 PM MRI C SPINE W & W/ O CONTRAST(FURTHER SEQUENCES): LUIS MANUEL PERDOMO [id number] -1945 M Exm Date: SEP 06, 2024@13:40 Req Phys: FRANCK TURNER Pat Loc: 5-MED/TEL/09-07-2024@06:42 Img Loc: [facility] Service: [place] [address] (Case [id number] COMPLETE) MRI C SPINE W & W/O CONTRAST(FURT(MRI Detailed) CPT:74891 Contrast Media : Gadolinium Reason for Study: SEE CLINICAL HISTORY Pharmaceutical: GADOTERIDOL 279.3MG/ML 20ML INJ, 19ml Clinical History: STATUS OF PLAIN FILMS:Not performed (Provide justification for MR W/O prior plain films below.) MRI for MS MRI Screening (Required): IMPLANTED DEVICE DOCUMENTATION IMPLANTED DEVICE DOCUMENTATION NOT FOUND Does the [place] have any Cardiac Implants? None Does the [place] have any implanted stimulators? None Does the have cochlear implants? No Does the [place] have Cerebral aneurysm clip(s)? I don't know Does the [place] have any shrapnel? I don't know If [...] 07, 2024 Date Verified: SEP 07, 2024 [facility] E-Sig: Report: EXAMINATION: MRI OF THE CERVICAL [...] Interpreting Staff: HUANG TAI, Radiologist Verified by glueline worker for HUANG TAI /HUANG WHEATLEY-Sav [facility] Sep 03, 2024 10:45 AM CHEST SINGLE(1) EW: LUIS MANUEL PERDOMO [id number] -1945 M Exm Date: SEP 03, 2024@10:45 Req Phys: FRANCK TURNER Pat Loc: 5-MED/TEL/09-03-2024@10:56 Img Loc: [facility] RADIOLOGY Service: [place] [address] (Case [id number] COMPLETE)CHEST SINGLE(1) VIEW (RAD Detailed) CPT:18009 Proc Modifiers : PORTABLE EXAM Reason for Study: Eval volume status Clinical History: Report Status: Verified Date Reported: SEP 03, 2024 Date Verified: SEP 03, 2024 [facility] E-Sig: Report: EXAMINATION: SINGLE VIEW CHEST CLINICAL [...] Interpreting Staff: HUANG TAI, Radiologist Verified by glueline worker for HUANG TAI /HUANG WHEATLEY-[facility] Aug 29, 2024 08:[address] HEAD W/O CONT: LUIS MANUEL PERDOMO [id number] -1945 M Exm Date: AUG 29, 2024@20:28 Req Phys: FELISA COLE Loc: ED/4P-12A (Req'g Loc) Img Loc: CT SCAN Service: Unknown [place] [id number] (Case [id number] COMPLETE) CT HEAD W/O CONT (CT Detailed) CPT:76645 Reason for Study: SEE CLINICAL HISTORY Clinical History: REASON FOR SEND OUT: ATTENDING PHYSICIAN NAME: New transient neurological s/s - suspected TIA HISTORY/REASON FOR EXAM: confusion Report Status: Verified Date Reported: AUG 29, 2024 Date Verified: AUG 29, 2024 [employer] E-Sig: Report: HISTORY confusion COMPARISON No prior [...] Staff: ABDIRAHMAN CROW, Staff Physician Verified by glueline worker for ABDIRAHMAN CROW /ABDIRAHMAN [facility] Pathology Reports: +/- 30 days [...] the Encounter. The data comes from all [place] treatment facilities. Date/Time Pathology Report Provider Source Sep 03, 2024 01:35 PM LR MICROBIOLOGY RE PORT: Reporting Lab: [facility] [CLIA# [id number]] [address] [place] [id number] Accession [UID]: [id number] [[id number]] Received: Sep 03, 2024@14:02 Collection sample: URINE, [...] Report Performed By: [facility] [CLIA# [id number]] [address] [place] [id number] BHARATI,MAGDY D [facility] Sep 02, 2024 06:00 PM LR MICROBIOLOGY RE PORT: Reporting Lab: [facility] [CLIA# [id number]] [address] [place] [address] Accession [UID]: [id number] [[id number]] Received: Sep 02, 2024@18:07 Collection sample: BLD CULTURE BOTTLES Collection date: Sep 02, 2024 18:00 Site/Specimen: BLOOD Provider: FRANCK TURNER Comment on specimen: L HAND Test(s) ordered: CULTURE, BLOOD................ completed: Sep 08, 2024 * BACTERIOLOGY FINAL REPORT => Sep 08, 2024 08:25 TECH CODE: [id number] Bacteriology Remark(s): Blood culture status=NO GROWTH (unless notified otherwise) 09/03/2024 AEROBIC: NO GROWTH ANAEROBIC: NO GROWTH =--=--=--=--=--=--=--=--=--=-- =--=--=--=--=--=--=--=--=--=-- =--=--=--=--=--=-- Performing Laboratory: Bacteriology Report Performed By: [facility] [CLIA# [id number]] [address] [place], [place] [id number] MAGDY CALABRESE [facility] Aug 29, 2024 10:18 PM LR MICROBIOLOGY RE PORT: Reporting Lab: [facility] [CLIA# [id number]] [address] [place], [place] [id number] Accession [UID]: [id number] [[id number]] Received: Aug 29, 2024@22:18 Collection sample: URINE, CLEAN CATCH Collection date: Aug 29, 2024 22:18 Site/Specimen: URINE Provider: FELISA COLE Test(s) ordered: CULTURE, URINE................ completed: Aug 31, 2024 09:51 * BACTERIOLOGY FINAL REPORT => Aug 31, 2024 09:51 TECH CODE: [id number] Bacteriology Remark(s): NO GROWTH 08/30/2024 <10,000 CFU/ML. 08/31/2024 =--=--=--=--=--=--=--=--=--=-- =--=--=--=--=--=--=--=--=--=-- =--=--=--=--=--=-- Performing Laboratory: Bacteriology Report Performed By: [facility] [CLIA# [id number]] [address] [place] [address] MAGDY CALABRESE-Sav [facility]
--- OUTSIDE RECORDS SUMMARY | 2024-09-09 00:08 | XMS_ITS ---
[place] DAILY HOSPITALIZATION DATA [facility] Encounter Summary Created on: September 22, 2024 LUIS MANUEL PERDOMO : 1945 Sex: Male Author Name Department of [facility] ([place] Organization [facility] of [facility] [place] Address [address] [place] [address] Care Team Providers Care Rerecording Mixer Name Role Phone YULISSA HENDERSON Primary Care [...] PLAN F Mar 24, 2014 PLAN F [id number] LUIS MANUEL PERDOMO PATIENT [facility] [place] [facility] PREFERRED PROVIDER ORGANIZAT ION (PPO) [facility] SLE Sep 21, 2012 [id number] LUIS MANUEL PERDOMO PATIENT [employer] ([id number]) PRESCRIPT ION WL3A Sep 21, 2012 [id number] [id number] LUIS MANUEL PERDOMO PATIENT MEDICARE (WNR) MEDICARE (M) PART B Sep 21, 2012 PART B [id number] NOEMI PERDOMO PATIENT MEDICARE (WNR) MEDICARE (M) PART A Jan 22, 2011 PART A [id number] LEANNE, NOEMI PATIENT MEDICARE PART D (WNR) MEDICARE (M) PART D Mar 24, 2014 PART D [id number] LUIS MANUEL PERDOMO PATIENT Selected Encounter This section includes the information on record at [place] for the Encounter. Date/Time Encounter Type Encounter Description Reason Pro vider Source Sep 09, 2024 04:08 AM Inpatient Visit DAILY HOSPITALIZATION DATA [facility] Encounter Template Text not used by [place] Plan of Treatment: Future Appointments (+ 6 months) and Future Tests (+/- 45 days) The Plan of Treatment section includes future care activities for the [facility] [place] [facility] This section includes future appointments and [...] 13, 2024 08:00 AM [facility] Sep 30, 2024 01:30 PM [...] of theEncounter. The data comes from all [facility] facilities. Test Date/Time Test Type Test Details Facility Name Sep 13, 2024 01:33 PM Consult Order [facility] SKILLED HOME CARE Cons Dam Attendant's Choice [facility] Lab Results: +/- 30 days [...] Specimen Type: CAPILLARY Comment: Test performed by: [id number] Meter #: [id number] Ordering Provider: FRANCK TURNER Report Released Date/Time: Sep 09, 2024 12:33 PM Reporting Lab: [address] [address] Performing Lab: [address] [address] GLUCOSE-HAND MONITOR 116 mg/dL H Sep 09, 2024 06:07 AM [facility] GLUCOSE-HAND MONITOR CAPILLARY Specime n Type: CAPILLARY Comment: Test performed by: [id number] Meter #: [id number] Ordering Provider: FRANCK TURNER Report Released Date/Time: Sep 09, 2024 08:17 AM Reporting Lab: [address] [address] Performing Lab: [address] [address] GLUCOSE-HAND MONITOR 112 mg/dL H Sep 08, 2024 09:13 PM [facility] GLUCOSE-HAND MONITOR CAPILLARY Specime n Type: CAPILLARY Comment: Test performed by: [id number] Meter #: [id number] Ordering Provider: FRANCK TURNER Report Released Date/Time: Sep 08, 2024 09:31 PM Reporting Lab: [address] [address] Performing Lab: [address] [address] GLUCOSE-HAND MONITOR 107 mg/dL H Sep 08, 2024 03:49 PM [facility] GLUCOSE-HAND MONITOR CAPILLARY Specime n Type: CAPILLARY Comment: AAMIR RN notified Test performed by: [id number] Meter #: [id number] Ordering Provider: FRANCK TURNER Report Released Date/Time: Sep 08, 2024 04:33 PM Reporting Lab: [address] [address] Performing Lab: [address] [address] GLUCOSE-HAND MONITOR 162 mg/dL H Sep 08, 2024 11:43 AM [facility] GLUCOSE-HAND MONITOR CAPILLARY Specime n Type: CAPILLARY Comment: AAMIR RN notified Test performed by: [id number] Meter #: [id number] Ordering Provider: FRANCK TURNER Report Released Date/Time: Sep 08, 2024 12:03 PM Reporting Lab: [address] [address] Performing Lab: [address] [address] GLUCOSE-HAND MONITOR 133 mg/dL H Sep 08, 2024 06:13 AM [facility] GLUCOSE-HAND MONITOR CAPILLARY Specime n Type: CAPILLARY Comment: Test performed by: [id number] Meter #: [id number] Ordering Provider: FRANCK TURNER Report Released Date/Time: Sep 08, 2024 06:46 AM Reporting Lab: [address] [address] Performing Lab: [address] [address] GLUCOSE-HAND MONITOR 104 mg/dL H Sep 07, 2024 07:59 PM [facility] GLUCOSE-HAND MONITOR CAPILLARY Specime n Type: CAPILLARY Comment: Test performed by: [id number] Meter #: [id number] Ordering Provider: FRANCK TURNER Report Released Date/Time: Sep 07, 2024 09:05 PM Reporting Lab: [address] [address] Performing Lab: [address] [address] GLUCOSE-HAND MONITOR 107 mg/dL H Sep 07, 2024 04:39 PM [facility] GLUCOSE-HAND MONITOR CAPILLARY Specime n Type: CAPILLARY Comment: Test performed by: [id number] Meter #: [id number] Ordering Provider: FRANCK TURNER Report Released Date/Time: Sep 07, 2024 05:09 PM Reporting Lab: [address] [address] Performing Lab: [address] [address] GLUCOSE-HAND MONITOR 105 mg/dL H Sep 07, 2024 11:41 AM [facility] GLUCOSE-HAND MONITOR CAPILLARY Specime n Type: CAPILLARY Comment: Test performed by: [id number] Meter #: [id number] Ordering Provider: FRANCK TURNER Report Released Date/Time: Sep 07, 2024 12:41 PM Reporting Lab: [address] [address] Performing Lab: [address] [address] GLUCOSE-HAND MONITOR 144 mg/dL H Sep 07, 2024 05:56 AM [facility] GLUCOSE-HAND MONITOR CAPILLARY Specime n Type: CAPILLARY Comment: Test performed by: [id number] Meter #: [id number] Ordering Provider: FRANCK TURNER Report Released Date/Time: Sep 07, 2024 06:31 AM Reporting Lab: [address] [address] Performing Lab: [address] [address] GLUCOSE-HAND MONITOR 96 mg/dL Sep 06, 2024 08:10 PM [facility] GLUCOSE-HAND MONITOR CAPILLARY Specime n Type: CAPILLARY Comment: Test performed by: [id number] Meter #: [id number] Ordering Provider: FRANCK TURNER Report Released Date/Time: Sep 06, 2024 08:52 PM Reporting Lab: [address] [address] Performing Lab: [address] [address] GLUCOSE-HAND MONITOR 124 mg/dL H Sep 06, 2024 04:27 PM [facility] GLUCOSE-HAND MONITOR CAPILLARY Specime n Type: CAPILLARY Comment: Test performed by: [id number] Meter #: [id number] Ordering Provider: FRANCK TURNER Report Released Date/Time: Sep 06, 2024 05:15 PM Reporting Lab: [address] [address] Performing Lab: [address] [address] GLUCOSE-HAND MONITOR 107 mg/dL H Sep 06, 2024 12:12 PM [facility] GLUCOSE-HAND MONITOR CAPILLARY Specime n Type: CAPILLARY Comment: Test performed by: [id number] Meter #: [id number] Ordering Provider: FRANCK TURNER Report Released Date/Time: Sep 06, 2024 12:29 PM Reporting Lab: [address] [address] Performing Lab: [address] [address] GLUCOSE-HAND MONITOR 181 mg/dL H -Sep 06, 2024 06:13 AM [facility] GLUCOSE-HAND MONITOR CAPILLARY Specime n Type: CAPILLARY Comment: Test performed by: [id number] Meter #: [id number] Ordering Provider: FRANCK TURNER Report Released Date/Time: Sep 06, 2024 06:36 AM Reporting Lab: [address] [address] Performing Lab: [address] [address] GLUCOSE-HAND MONITOR 102 mg/dL H Sep 05, 2024 08:47 PM [facility] GLUCOSE-HAND MONITOR CAPILLARY Specime n Type: CAPILLARY Comment: Test performed by: [id number] Meter #: [id number] Ordering Provider: FRANCK TURNER Report Released Date/Time: Sep 06, 2024 02:13 AM Reporting Lab: [address] [address] Performing Lab: [address] [address] GLUCOSE-HAND MONITOR 103 mg/dL H Sep 05, 2024 04:40 PM [facility] GLUCOSE-HAND MONITOR CAPILLARY Specime n Type: CAPILLARY Comment: AAMIR RN notified Test performed by: [id number] Meter #: [id number] Ordering Provider: FRANCK TURNER Report Released Date/Time: Sep 05, 2024 05:11 PM Reporting Lab: [address] [address] Performing Lab: [address] [address] GLUCOSE-HAND MONITOR 113 mg/dL H Sep 05, 2024 12:06 PM [facility] GLUCOSE-HAND MONITOR CAPILLARY Specime n Type: CAPILLARY Comment: Test performed by: [id number] Meter #: [id number] Ordering Provider: FRANCK TURNER Report Released Date/Time: Sep 05, 2024 12:23 PM Reporting Lab: [address] [address] Performing Lab: [address] [address] GLUCOSE-HAND MONITOR 115 mg/dL H Sep 05, 2024 06:26 AM [facility] GLUCOSE-HAND MONITOR CAPILLARY Specime n Type: CAPILLARY Comment: AAMIR Correction Dose Test performed by: [id number] Meter #: [id number] Ordering Provider: FRANCK TURNER Report Released Date/Time: Sep 05, 2024 06:43 AM Reporting Lab: [address] [address] Performing Lab: [address] [address] GLUCOSE-HAND MONITOR 111 mg/dL H Sep 04, 2024 08:59 PM [facility] GLUCOSE-HAND MONITOR CAPILLARY Specime n Type: CAPILLARY Comment: AAMIR RN notified Test performed by: [id number] Meter #: [id number] Ordering Provider: FRANCK TURNER Report Released Date/Time: Sep 04, 2024 09:36 PM Reporting Lab: [address] [address] Performing Lab: [address] [address] GLUCOSE-HAND MONITOR 123 mg/dL H Sep 04, 2024 04:41 PM [facility] GLUCOSE-HAND MONITOR CAPILLARY Specime n Type: CAPILLARY Comment: AAMIR RN notified Test performed by: [id number] Meter #: [id number] Ordering Provider: FRANCK TURNER Report Released Date/Time: Sep 04, 2024 05:03 PM Reporting Lab: [address] [address] Performing Lab: [address] [address] GLUCOSE-HAND MONITOR 118 mg/dL H Sep 04, 2024 12:36 PM [facility] GLUCOSE-HAND MONITOR CAPILLARY Specime n Type: CAPILLARY Comment: AAMIR RN notified Test performed by: [id number] Meter #: [id number] Ordering Provider: FRANCK TURNER Report Released Date/Time: Sep 04, 2024 12:53 PM Reporting Lab: [address] [address] Performing Lab: [place] [address] GLUCOSE-HAND MONITOR 129 mg/dL H 71-99 Sep 04, 2024 12:03 PM [facility] RESPIRATORY VIRUS PANEL (BIOFIRE) NASOPHARYN X Specimen Type: NASOPHARYNX Comment: ~For Test: RESPIRATORY VIRUS PANEL (BIOFIRE) ~ORDER READ BACK TO: FRANCK TURNER 09/04/24@11:30 Ordering Provider: FRANCK TURNER Report Released Date/Time: Sep 04, 2024 11:33 AM Reporting Lab: [place] [phone] Performing Lab: [place] [phone] ADENOVIRUS (BIOFIRE) Not Detected -Not D etected [...] -Not Detected Sep 04, 2024 06:55 AM [facility] MAGNESIUM PLASMA Specimen Type: PLASM [...] AM Reporting Lab: [place] [facility] [address] [facility] [address] Performing Lab: [place] [id number] [facility] [address] MAGNESIUM 1.8 mg/dL 1.6-2.6 Sep 04, 2024 06:55 AM [facility] PANEL 1 PLASMA Specimen Type: [...] Sep 03, 2024 11:10 AM Reporting Lab: [address] [address] Performing Lab: [address] CREATININE 0.75 mg/dL 0.72-1.25 UREA NITROGEN 13 mg/dL 9-25 GLUCOSE 105 mg/dL H 74-100 SODIUM 128 mmol/L L 136-145 POTASSIUM 3.9 mmol/L 3.5-5.1 CHLORIDE 99 mmol/L 98-107 CO2 21 mmol/L L 22-29 CALCIUM 8.0 mg/dL L 8.4-10.2 ANION GAP 8 meq/L 3-19 eGFR (CKD-EPI) >90 Sep 04, 2024 06:02 AM [facility] GLUCOSE-HAND MONITOR CAPILLARY Specime n Type: CAPILLARY Comment: Test performed by: [id number] Meter #: [id number] Ordering Provider: FRANCK TURNER Report Released Date/Time: Sep 04, 2024 06:28 AM Reporting Lab: [address] Performing Lab: [address] GLUCOSE-HAND MONITOR 114 mg/dL H 71-99 Sep 03, 2024 05:19 PM [facility] GLUCOSE-HAND MONITOR CAPILLARY Specime n Type: CAPILLARY Comment: Test performed by: [id number] Meter #: [id number] Ordering Provider: FRANCK TURNER Report Released Date/Time: Sep 03, 2024 05:37 PM Reporting Lab: [address] Performing Lab: [address] [address] GLUCOSE-HAND MONITOR 124 mg/dL H 71-99 Sep 03, 2024 04:41 PM [facility] GLUCOSE-HAND MONITOR CAPILLARY Specime n Type: CAPILLARY Comment: Test performed by: [id number] Meter #: [id number] Ordering Provider: FRANCK TURNER Report Released Date/Time: Sep 03, 2024 06:09 PM Reporting Lab: [address] [address] Performing Lab: [address] [address] GLUCOSE-HAND MONITOR 112 mg/dL H 71-99 Sep 03, 2024 01:35 PM [facility] CREATININE URINE Specimen Type: URINE Comment: ~Altered mental status with no identifiable cause Ordering Provider: FRANCK TURNER Report Released Date/Time: Sep 02, 2024 04:44 PM Reporting Lab: [facility] [address] [place] [address] Performing Lab: [address] [address] CREATININE 150.9 mg/dL Sep 03, 2024 01:35 PM [facility] URINE LYTES URINE Specimen Type : URINE Comment: ~Altered mental status with no identifiable cause Ordering Provider: FRANCK TURNER Report Released Date/Time: Sep 02, 2024 04:44 PM Reporting Lab: [address] [address] Performing Lab: [address] [address] SODIUM 130 mmol/L POTASSIUM 47.6 mmol/L CHLORIDE 137 mmol/L Sep 03, 2024 01:35 PM [facility] UREA NITROGEN URINE Specimen Type : URINE Comment: ~Altered mental status with no identifiable cause Ordering Provider: FRANCK TURNER Report Released Date/Time: Sep 02, 2024 04:44 PM Reporting Lab: [address] [address] Performing Lab: [address] [address] UREA NITROGEN 320 mg/dL Sep 03, 2024 01:35 PM [facility] URINALYSIS WITH REFLEX TO CULTURE URINE Specimen Type: URINE Comment: ~Altered mental status with no identifiable cause Ordering Provider: FRANCK TURNER Report Released Date/Time: Sep 02, 2024 04:44 PM Reporting Lab: [address] [address] Performing Lab: [address] [address] URINE COLOR Yellow Colorless-Yellow APPEARANCE CLOUDY H [...] H 0-28 Sep 03, 2024 01:35 PM [facility] OSMOLALITY URINE Specimen Type: URINE Comment: ~Altered mental status with no identifiable cause Ordering Provider: FRANCK TURNER Report Released Date/Time: Sep 02, 2024 04:44 PM Reporting Lab: [place] [phone] Performing Lab: [place] [phone] OSMOLALITY 522 mosm/kg 38-1400 Sep 03, 2024 11:58 AM [facility] GLUCOSE-HAND MONITOR CAPILLARY Specime n Type: CAPILLARY Comment: AAMIR RN notified Test performed by: [id number] Meter #: [id number] Ordering Provider: FRANCK TURNER Report Released Date/Time: Sep 03, 2024 12:15 PM Reporting Lab: [address] [address] Performing Lab: [address] [address] GLUCOSE-HAND MONITOR 135 mg/dL H Sep 03, 2024 07:09 AM [facility] GLUCOSE-HAND MONITOR CAPILLARY Specime n Type: CAPILLARY Comment: Test performed by: [id number] Meter #: [id number] Ordering Provider: FRANCK TURNER Report Released Date/Time: Sep 03, 2024 07:26 AM Reporting Lab: [address] [address] Performing Lab: [address] [address] GLUCOSE-HAND MONITOR 120 mg/dL H Sep 03, 2024 07:05 AM [facility] CBC/PLT BLOOD Specimen Type: BLOOD No comment entered. Ordering Provider: FRANCK TURNER Report Released Date/Time: Sep 02, 2024 04:29 PM Reporting Lab: [address] [address] Performing Lab: [address] [address] WBC 6.9 10*3/uL 5.0-10.0 RBC 3.48 10*6/uL L 4.6-6.2 HGB 9.5 g/dL L 14.0-18.0 HCT 29.1 L 42.0-52.0 MCV 83.6 fL 80.0-94.0 MCH 27.3 pg 27.0-31.0 MCHC 32.6 g/dL 32.0-36.0 PLT 258 10*3/uL 150-450 MPV 10.3 fL 9.0-13.1 RDW 14.8 11.0-16.0 NRBC 0.0 0.0-0.0 Sep 03, 2024 07:05 AM [facility] MAGNESIUM PLASMA Specimen Type: PLASM [...] Sep 02, 2024 04:29 PM Reporting Lab: [address] [address] Performing Lab: [address] [address] MAGNESIUM 1.7 mg/dL 1.6-2.6 Sep 03, 2024 07:05 AM [facility] PANEL 1 PLASMA Specimen Type: [...] Sep 02, 2024 04:29 PM Reporting Lab: [address] [address] Performing Lab: [address] [address] CREATININE 0.82 mg/dL 0.72-1.25 UREA NITROGEN 12 mg/dL 9-25 GLUCOSE 109 mg/dL H 74-100 SODIUM 129 mmol/L L 136-145 POTASSIUM 4.2 mmol/L 3.5-5.1 CHLORIDE 99 mmol/L 98-107 CO2 21 mmol/L L 22-29 CALCIUM 8.1 mg/dL L 8.4-10.2 ANION GAP 9 meq/L 3-19 eGFR (CKD-EPI) 90 Sep 03, 2024 07:05 AM [facility] GLYCOHEMOGLOBIN BLOOD Specimen Type: BLOOD Comment: Prediabetes: 5.7%-6.4% Diabetes: >= 6.5% [place] guidelines for A1c interpretation: [...] 8.73 and 9.27. Ref: https://ngsp.org/CAPdata.asp. The in-house [employer] D-100 analyzer has a historical CV <= 2%. Contact the laboratory for further performance characteristics of this assay. Ordering Provider: FRANCK TURNER Report Released Date/Time: Sep 02, 2024 04:29 PM Reporting Lab: [address] [address] Performing Lab: [place] [phone] GLYCOHEMOGLOBIN 5.6 4.4-5.6 Sep 03, 2024 07:05 AM [facility] OSMOLALITY SERUM Specimen Type: SERUM No comment entered. Ordering Provider: FRANCK TURNER Report Released Date/Time: Sep 02, 2024 04:44 PM Reporting Lab: [address] [address] Performing Lab: [address] [address] OSMOLALITY 271 mosm/kg L 280-300 Sep 02, 2024 08:15 PM [facility] GLUCOSE-HAND MONITOR CAPILLARY Specime n Type: CAPILLARY Comment: AAMIR DEXTER notified Test performed by: [id number] Meter #: [id number] Ordering Provider: FRANCK TURNER Report Released Date/Time: Sep 02, 2024 08:57 PM Reporting Lab: [address] [address] Performing Lab: [address] [address] GLUCOSE-HAND MONITOR 126 mg/dL H 71-99 Sep 02, 2024 06:10 PM [facility] MRSA SURVL NARES DNA NARES [...] Sep 02, 2024 05:12 PM Reporting Lab: [address] [address] Performing Lab: [address] [address] MRSA SURVL NARES DNA Negative Negative Sep 02, 2024 05:36 PM [facility] GLUCOSE-HAND MONITOR CAPILLARY Specime n Type: CAPILLARY Comment: Test performed by: [id number] Meter #: [id number] Ordering Provider: FRANCK TURNER Report Released Date/Time: Sep 02, 2024 05:53 PM Reporting Lab: [address] [address] Performing Lab: [address] [address] GLUCOSE-HAND MONITOR 127 mg/dL H 71-99 Aug 29, 2024 10:04 PM [facility] URINALYSIS WITH REFLEX TO CULTURE URINE Specimen Type: URINE Comment: ~For Test: URINALYSIS WITH REFLEX TO CULTURE ~REORDER Ordering Provider: FELISA COLE Report Released Date/Time: Aug 29, 2024 09:36 PM Reporting Lab: [address] [address] Performing Lab: [address] [address] URINE COLOR Yellow Colorless-Yellow APPEARANCE Clear Clear [...] Aug 29, 2024 07:55 PM Reporting Lab: [address] [address] Performing Lab: [address] [address] HIGH SENSITIVITY TROPONIN I 7 4-35 Aug 29, 2024 08:32 PM [facility] CBC/PLT BLOOD Specimen Type: BLOOD No comment entered. Ordering Provider: FELISA COLE Report Released Date/Time: Aug 29, 2024 07:55 PM Reporting Lab: [address] [address] Performing Lab: [address] [address] WBC 11.2 10*3/uL H 5.0-10.0 RBC 3.97 [...] Aug 29, 2024 07:55 PM Reporting Lab: [address] [address] Performing Lab: [address] [address] CREATININE 0.85 mg/dL 0.72-1.25 UREA NITROGEN 15 [...] Height Weight Body Mass Index Source Sep 09, 2024 02:32 PM 98.3 F 71 /min 167/78 mm[Hg] 16 /min 95 % [place] Sep 09, 2024 08:09 AM 97.7 F 77 /min 117/68 mm[Hg] 18 /min 91 % 6 [place] Sep 09, 2024 04:40 AM 213.6 lb 32 [place] Sep 09, 2024 04:11 AM 97.7 F 70 /min 168/79 mm[Hg] 20 /min 93 % 0 [place] [facility] Advance Directives: All historical and current Section [...] 08, 2024 ADVANCE DIRECTIVE DISCUSSION [facility] [facility] Radiology Reports: +/- 30 [...] BRAIN W & W/O: LUIS MANUEL PERDOMO [id number] -1945 M Exm Date: SEP 06, 2024@13:40 Req Phys: FRANCK TURNER Loc: 5-MED/TEL/09-06-2024@19:09 Img Loc: [facility] Service: [place] [address] (Case [id number] COMPLETE) MRI BRAIN W & W/O (MRI Detailed) CPT:15474 Contrast Media : Gadolinium Reason for Study: SEE CLINICAL HISTORY Pharmaceutical: GADOTERIDOL 279.3MG/ML 20ML INJ, 19ml Clinical History: MRI Screening (Required): IMPLANTED DEVICE DOCUMENTATION IMPLANTED DEVICE DOCUMENTATION NOT FOUND Does the [place] have any Cardiac Implants? None Does the have any implanted stimulators? None Does the [place] have cochlear implants? No Does the [place] have Cerebral aneurysm clip(s)? I don't know Does the have any shrapnel? I don't know If yes, where in your body? Please list other implants not listed above: MRI table has a weight limit of 551 lbs. [place]'s Weight: *212 lb [96.16 kg] (09/04/2024 05:19) Is this patient claustrophobic?: No REASON FOR EXAM:MULTIPLE SCLEROSIS (indicate suspected or established) PERTINENT PATIENT HISTORY: MS c/f for flare Risk factors for GADOLINIUM NEPHROGENIC SYSTEMIC SCLEROSIS: Report Status: Verified Date Reported: SEP 06, 2024 Date Verified: SEP 06, 2024 High [employer]el [employer] E-Sig: Report: MRI brain without and with [...] Staff: ARCENIO LEYVA, Staff Radiologist Verified by apple picking supervisor for ARCENIO LEYVA /ARCENIO AVILA-D [facility] Sep 06, 2024 01:40 PM MRI C SPINE W & W/ O CONTRAST(FURTHER SEQUENCES): LUIS MANUEL PERDOMO [id number] -1945 M Exm Date: SEP 06, 2024@13:40 Req Phys: FRANCK TURNERISIAHFLOSav Pat Loc: 5-MED/TEL/09-07-2024@06:42 Img Loc: [facility] Service: [place] [address] (Case [id number] COMPLETE) MRI C SPINE W & W/O CONTRAST(FURT(MRI Detailed) CPT:28147 Contrast Media : Gadolinium Reason for Study: SEE CLINICAL HISTORY Pharmaceutical: GADOTERIDOL 279.3MG/ML 20ML INJ, 19ml Clinical History: STATUS OF PLAIN FILMS:Not performed (Provide justification for MR W/O prior plain films below.) MRI for MS MRI Screening (Required): IMPLANTED DEVICE DOCUMENTATION IMPLANTED DEVICE DOCUMENTATION NOT FOUND Does the have any Cardiac Implants? None Does the [place] have any implanted stimulators? None Does the have cochlear implants? No Does the have Cerebral aneurysm clip(s)? I don't know Does the have any shrapnel? I don't know If yes, where in your body? Please list other implants not listed above: MRI table has a weight limit of 551 lbs. [place]'s Weight: *212 lb [96.16 kg] (09/04/2024 05:19) Is this patient claustrophobic?: No REASON FOR EXAM: MULTIPLE SCLEROSIS (indicate suspected or established) PERTINENT PATIENT HISTORY: MS c/f flare Risk factors for GADOLINIUM NEPHROGENIC SYSTEMIC SCLEROSIS: Report Status: Verified Date Reported: SEP 07, 2024 Date Verified: SEP 07, 2024 High [employer]el Builder E-Sig: Report: EXAMINATION: MRI OF THE CERVICAL [...] Interpreting Staff: HUANG TAI, Radiologist Verified by apple picking supervisor for HUAGN TAI /HUANG [place]-[facility] Sep 03, 2024 10:45 AM CHEST SINGLE(1) EW: LUIS MANUEL PERDOMO [id number] -1945 M Exm Date: SEP 03, 2024@10:45 Req Phys: FRANCK TURNER Loc: 5-MED/TEL/09-03-2024@10:56 Img Loc: [facility] Service: [place] [address] (Case [id number] COMPLETE)CHEST SINGLE(1) VIEW (RAD Detailed) CPT:60092 Proc Modifiers : PORTABLE EXAM Reason for Study: Eval volume status Clinical History: Report Status: Verified Date Reported: SEP 03, 2024 Date Verified: SEP 03, 2024 High Heel Builder E-Sig: Report: EXAMINATION: SINGLE VIEW CHEST CLINICAL [...] Interpreting Staff: HUANG TAI, Radiologist Verified by apple picking supervisor for HUANG TAI /HUANG [place] Aug 29, 2024 08:[address] HEAD W/O CONT: LUIS MANUEL PERDOMO [id number] -1945 M Exm Date: AUG 29, 2024@20:28 Req Phys: FELISA COLE Loc: ED/4P-12A (Req'g Loc) Img Loc: CT SCAN Service: [place] [address] (Case [id number] COMPLETE) CT HEAD W/O CONT (CT Detailed) CPT:15993 Reason for Study: SEE CLINICAL HISTORY Clinical History: REASON FOR SEND OUT: ATTENDING PHYSICIAN NAME: New transient neurological s/s - suspected TIA HISTORY/REASON FOR EXAM: confusion Report Status: Verified Date Reported: AUG 29, 2024 Date Verified: AUG 29, 2024 [employer] E-Sig: Report: HISTORY confusion COMPARISON No prior [...] Staff: ABDIRAHMAN CROW, Staff Physician Verified by apple picking supervisor for ABDIRAHMAN CROW /[facility] Pathology Reports: +/- 30 days of [...] Reporting Lab: [facility] [CLIA# [id number]] [address] [place] [id number] Accession [UID]: [id number] [[id number]] Received: Sep 03, 2024@14:02 Collection sample: URINE, [...] Performed By: [facility] [CLIA# [id number]] [address] [place] [id number] [facility] Sep 02, 2024 06:00 PM LR MICROBIOLOGY RE PORT: Reporting Lab: [facility] [CLIA# [id number]] [address] [place] [address] Accession [UID]: [id number] [[id number]] Received: Sep 02, 2024@18:07 Collection sample: BLD CULTURE BOTTLES Collection date: Sep 02, 2024 18:00 Site/Specimen: BLOOD Provider: FRANCK TURNER Comment on specimen: L HAND Test(s) ordered: CULTURE, BLOOD................ completed: Sep 08, 2024 * BACTERIOLOGY FINAL REPORT => Sep 08, 2024 08:25 TECH CODE: [id number] Bacteriology Remark(s): Blood culture status=NO GROWTH (unless notified otherwise) 09/03/2024 AEROBIC: NO GROWTH ANAEROBIC: NO GROWTH =--=--=--=--=--=--=--=--=--=-- =--=--=--=--=--=--=--=--=--=-- =--=--=--=--=--=-- Performing Laboratory: Bacteriology Report Performed By: [facility] [CLIA# [id number]] [address] [place] [address] MAGDY CALABRESE [facility] Aug 29, 2024 10:18 PM LR MICROBIOLOGY RE PORT: Reporting Lab: [facility] [CLIA# [id number]] [address] [place] [address] Accession [UID]: [id number] [[id number]] Received: Aug 29, 2024@22:18 Collection sample: URINE, CLEAN CATCH Collection date: Aug 29, 2024 22:18 Site/Specimen: URINE Provider: FELISA COLE Test(s) ordered: CULTURE, URINE................ completed: Aug 31, 2024 09:51 * BACTERIOLOGY FINAL REPORT => Aug 31, 2024 09:51 TECH CODE: [id number] Bacteriology Remark(s): NO GROWTH 08/30/2024 <10,000 CFU/ML. 08/31/2024 =--=--=--=--=--=--=--=--=--=-- =--=--=--=--=--=--=--=--=--=-- =--=--=--=--=--=-- Performing Laboratory: Bacteriology Report Performed By: [facility] [CLIA# [id number]] [address] [place] [address] MAGDY CALABRESE-[facility]
--- OUTSIDE RECORDS SUMMARY | 2024-09-09 01:05 | XMS_ITS ---
OR DAILY HOSPITALIZATION DATA [facility] Encounter Summary Created on: September 22, 2024 LUIS MANUEL PERDOMO : 1945 Sex: Male Author Name [facility] Address [address] [place] [address] Care Team Providers Care Prospect Manager Name Role Phone YULISSA HENDERSON Primary [...] PLAN F Mar 24, 2014 PLAN F [id number] LUIS MANUEL PERDOMO PATIENT [facility] [place] [facility] PREFERRED PROVIDER ORGANIZAT ION (PPO) [facility] SLE Sep 21, 2012 [id number] LUIS MANUEL PERDOMO PATIENT [employer] ([id number]) PRESCRIPT ION WL3A Sep 21, 2012 [id number] LUIS MANUEL PERDOMO PATIENT MEDICARE (WNR) MEDICARE (M) PART B Sep 21, 2012 PART B [id number] NOEMI PERDOMO PATIENT MEDICARE (WNR) MEDICARE (M) PART A Jan 22, 2011 PART A [id number] LEANNE, NOEMI PATIENT MEDICARE PART D (WNR) MEDICARE (M) PART D Mar 24, 2014 PART D [id number] LUIS MANUEL PERDOMO PATIENT Selected Encounter This section includes the information on record at OR for the Encounter. Date/Time Encounter Type Encounter Description Reason Pro vider Source Sep 09, 2024 05:05 AM Inpatient Visit DAILY HOSPITALIZATION DATA [facility] Encounter Template Text not used by OR Plan of Treatment: Future Appointments (+ 6 months) and Future Tests (+/- 45 days) The Plan of Treatment section includes future care activities for the [facility]. This section includes future appointments and future [...] 13, 2024 08:00 AM AMBULATORY - NONE [facility] Sep 30, 2024 01:30 PM AMBULATORY - SURGERY [facility] Active, Pending, and Scheduled Orders [...] Sep 13, 2024 01:33 PM Consult Order [facility] SKILLED HOME CARE Cons Vamp Presser's Choice [facility] Lab Results: +/- 30 days [...] Type Comment Sep 09, 2024 12:16 PM [facility] GLUCOSE-HAND MONITOR CAPILLARY Specimen Type: CAPILLARY Comment: Test performed by: [id number] Meter #: [id number] Ordering Provider: FRANCK TURNER Report Released Date/Time: Sep 09, 2024 12:33 PM Reporting Lab: [address] [address] Performing Lab: [address] [address] GLUCOSE-HAND MONITOR 116 mg/dL H Sep 09, 2024 06:07 AM [facility] GLUCOSE-HAND MONITOR CAPILLARY Specime n Type: CAPILLARY Comment: Test performed by: [id number] Meter #: [id number] Ordering Provider: FRANCK TURNER Report Released Date/Time: Sep 09, 2024 08:17 AM Reporting Lab: [address] [address] Performing Lab: [address] [address] GLUCOSE-HAND MONITOR 112 mg/dL H Sep 08, 2024 09:13 PM [facility] GLUCOSE-HAND MONITOR CAPILLARY Specime n Type: CAPILLARY Comment: Test performed by: [id number] Meter #: [id number] Ordering Provider: FRANCK TURNER Report Released Date/Time: Sep 08, 2024 09:31 PM Reporting Lab: [address] [address] Performing Lab: [address] [address] GLUCOSE-HAND MONITOR 107 mg/dL H Sep 08, 2024 03:49 PM [facility] GLUCOSE-HAND MONITOR CAPILLARY Specime n Type: CAPILLARY Comment: AAMIR RN notified Test performed by: [id number] Meter #: [id number] Ordering Provider: FRANCK TURNER Report Released Date/Time: Sep 08, 2024 04:33 PM Reporting Lab: [address] [address] Performing Lab: [address] [address] GLUCOSE-HAND MONITOR 162 mg/dL H Sep 08, 2024 11:43 AM [facility] GLUCOSE-HAND MONITOR CAPILLARY Specime n Type: CAPILLARY Comment: AAMIR RN notified Test performed by: [id number] Meter #: [id number] Ordering Provider: FRANCK TURNER Report Released Date/Time: Sep 08, 2024 12:03 PM Reporting Lab: [address] [address] Performing Lab: [address] [address] GLUCOSE-HAND MONITOR 133 mg/dL H Sep 08, 2024 06:13 AM [facility] GLUCOSE-HAND MONITOR CAPILLARY Specime n Type: CAPILLARY Comment: Test performed by: [id number] Meter #: [id number] Ordering Provider: FRANCK TURNER Report Released Date/Time: Sep 08, 2024 06:46 AM Reporting Lab: [address] [address] Performing Lab: [address] [address] GLUCOSE-HAND MONITOR 104 mg/dL H Sep 07, 2024 07:59 PM [facility] GLUCOSE-HAND MONITOR CAPILLARY Specime n Type: CAPILLARY Comment: Test performed by: [id number] Meter #: [id number] Ordering Provider: FRANCK TURNER Report Released Date/Time: Sep 07, 2024 09:05 PM Reporting Lab: [address] [address] Performing Lab: [address] [address] GLUCOSE-HAND MONITOR 107 mg/dL H Sep 07, 2024 04:39 PM [facility] GLUCOSE-HAND MONITOR CAPILLARY Specime n Type: CAPILLARY Comment: Test performed by: [id number] Meter #: [id number] Ordering Provider: FRANCK TURNER Report Released Date/Time: Sep 07, 2024 05:09 PM Reporting Lab: [address] [address] Performing Lab: [address] [address] GLUCOSE-HAND MONITOR 105 mg/dL H Sep 07, 2024 11:41 AM [facility] GLUCOSE-HAND MONITOR CAPILLARY Specime n Type: CAPILLARY Comment: Test performed by: [id number] Meter #: [id number] Ordering Provider: FRANCK TURNER Report Released Date/Time: Sep 07, 2024 12:41 PM Reporting Lab: [address] [address] Performing Lab: [address] [address] GLUCOSE-HAND MONITOR 144 mg/dL H Sep 07, 2024 05:56 AM [facility] GLUCOSE-HAND MONITOR CAPILLARY Specime n Type: CAPILLARY Comment: Test performed by: [id number] Meter #: [id number] Ordering Provider: FRANCK TURNER Report Released Date/Time: Sep 07, 2024 06:31 AM Reporting Lab: [address] [address] Performing Lab: [address] [address] GLUCOSE-HAND MONITOR 96 mg/dL Sep 06, 2024 08:10 PM [facility] GLUCOSE-HAND MONITOR CAPILLARY Specime n Type: CAPILLARY Comment: Test performed by: [id number] Meter #: [id number] Ordering Provider: FRANCK TURNER Report Released Date/Time: Sep 06, 2024 08:52 PM Reporting Lab: [address] [address] Performing Lab: [address] [address] GLUCOSE-HAND MONITOR 124 mg/dL H Sep 06, 2024 04:27 PM [facility] GLUCOSE-HAND MONITOR CAPILLARY Specime n Type: CAPILLARY Comment: Test performed by: [id number] Meter #: [id number] Ordering Provider: FRANCK TURNER Report Released Date/Time: Sep 06, 2024 05:15 PM Reporting Lab: [address] [address] Performing Lab: [address] [address] GLUCOSE-HAND MONITOR 107 mg/dL H Sep 06, 2024 12:12 PM [facility] GLUCOSE-HAND MONITOR CAPILLARY Specime n Type: CAPILLARY Comment: Test performed by: [id number] Meter #: [id number] Ordering Provider: FRANCK TURNER Report Released Date/Time: Sep 06, 2024 12:29 PM Reporting Lab: [address] [address] Performing Lab: [address] [address] GLUCOSE-HAND MONITOR 181 mg/dL H -Sep 06, 2024 06:13 AM [facility] GLUCOSE-HAND MONITOR CAPILLARY Specime n Type: CAPILLARY Comment: Test performed by: [id number] Meter #: [id number] Ordering Provider: FRANCK TURNER Report Released Date/Time: Sep 06, 2024 06:36 AM Reporting Lab: [address] [address] Performing Lab: [address] [address] GLUCOSE-HAND MONITOR 102 mg/dL H Sep 05, 2024 08:47 PM [facility] GLUCOSE-HAND MONITOR CAPILLARY Specime n Type: CAPILLARY Comment: Test performed by: [id number] Meter #: [id number] Ordering Provider: FRANCK TURNER Report Released Date/Time: Sep 06, 2024 02:13 AM Reporting Lab: [address] [address] Performing Lab: [address] [address] GLUCOSE-HAND MONITOR 103 mg/dL H Sep 05, 2024 04:40 PM [facility] GLUCOSE-HAND MONITOR CAPILLARY Specime n Type: CAPILLARY Comment: AAMIR RN notified Test performed by: [id number] Meter #: [id number] Ordering Provider: FRANCK TURNER Report Released Date/Time: Sep 05, 2024 05:11 PM Reporting Lab: [address] [address] Performing Lab: [address] [address] GLUCOSE-HAND MONITOR 113 mg/dL H Sep 05, 2024 12:06 PM [facility] GLUCOSE-HAND MONITOR CAPILLARY Specime n Type: CAPILLARY Comment: Test performed by: [id number] Meter #: [id number] Ordering Provider: FRANCK TURNER Report Released Date/Time: Sep 05, 2024 12:23 PM Reporting Lab: [address] [address] Performing Lab: [address] [address] GLUCOSE-HAND MONITOR 115 mg/dL H Sep 05, 2024 06:26 AM [facility] GLUCOSE-HAND MONITOR CAPILLARY Specime n Type: CAPILLARY Comment: AAMIR Correction Dose Test performed by: [id number] Meter #: [id number] Ordering Provider: FRANCK TURNER Report Released Date/Time: Sep 05, 2024 06:43 AM Reporting Lab: [address] [address] Performing Lab: [address] [address] GLUCOSE-HAND MONITOR 111 mg/dL H Sep 04, 2024 08:59 PM [facility] GLUCOSE-HAND MONITOR CAPILLARY Specime n Type: CAPILLARY Comment: AAMIR RN notified Test performed by: [id number] Meter #: [id number] Ordering Provider: FRANCK TURNER Report Released Date/Time: Sep 04, 2024 09:36 PM Reporting Lab: [address] [address] Performing Lab: [address] [address] GLUCOSE-HAND MONITOR 123 mg/dL H Sep 04, 2024 04:41 PM [facility] GLUCOSE-HAND MONITOR CAPILLARY Specime n Type: CAPILLARY Comment: AAMIR RN notified Test performed by: [id number] Meter #: [id number] Ordering Provider: FRANCK TURNER Report Released Date/Time: Sep 04, 2024 05:03 PM Reporting Lab: [address] [address] Performing Lab: [address] [address] GLUCOSE-HAND MONITOR 118 mg/dL H Sep 04, 2024 12:36 PM [facility] GLUCOSE-HAND MONITOR CAPILLARY Specime n Type: CAPILLARY Comment: AAMIR RN notified Test performed by: [id number] Meter #: [id number] Ordering Provider: FRANCK TURNER Report Released Date/Time: Sep 04, 2024 12:53 PM Reporting Lab: [address] [address] Performing Lab: [place] [address] GLUCOSE-HAND MONITOR 129 mg/dL H 71-99 Sep 04, 2024 12:03 PM [facility] RESPIRATORY VIRUS PANEL (BIOFIRE) NASOPHARYN X Specimen Type: NASOPHARYNX Comment: ~For Test: RESPIRATORY VIRUS PANEL (BIOFIRE) ~ORDER READ BACK TO: FRANCK TURNER 09/04/24@11:30 Ordering Provider: FRACNK TURNER Report Released Date/Time: Sep 04, 2024 11:33 AM Reporting Lab: [place] [phone] Performing Lab: [place] [phone] ADENOVIRUS (BIOFIRE) Not Detected -Not D etected [...] -Not Detected Sep 04, 2024 06:55 AM [facility] MAGNESIUM PLASMA Specimen Type: PLASM [...] 03, 2024 11:10 AM Reporting Lab: [facility] [address] [facility] [address] Performing Lab: [place] [address] [facility] [address] MAGNESIUM 1.8 mg/dL 1.6-2.6 Sep 04, 2024 06:55 AM [facility] PANEL 1 PLASMA Specimen Type: [...] Sep 03, 2024 11:10 AM Reporting Lab: [address] [address] Performing Lab: [address] CREATININE 0.75 mg/dL 0.72-1.25 UREA NITROGEN 13 mg/dL 9-25 GLUCOSE 105 mg/dL H 74-100 SODIUM 128 mmol/L L 136-145 POTASSIUM 3.9 mmol/L 3.5-5.1 CHLORIDE 99 mmol/L 98-107 CO2 21 mmol/L L 22-29 CALCIUM 8.0 mg/dL L 8.4-10.2 ANION GAP 8 meq/L 3-19 eGFR (CKD-EPI) >90 Sep 04, 2024 06:02 AM [facility] GLUCOSE-HAND MONITOR CAPILLARY Specime n Type: CAPILLARY Comment: Test performed by: [id number] Meter #: [id number] Ordering Provider: FRANCK TURNER Report Released Date/Time: Sep 04, 2024 06:28 AM Reporting Lab: [address] Performing Lab: [address] GLUCOSE-HAND MONITOR 114 mg/dL H 71-99 Sep 03, 2024 05:19 PM [facility] GLUCOSE-HAND MONITOR CAPILLARY Specime n Type: CAPILLARY Comment: Test performed by: [id number] Meter #: [id number] Ordering Provider: FRANCK TURNER Report Released Date/Time: Sep 03, 2024 05:37 PM Reporting Lab: [address] Performing Lab: [address] [address] GLUCOSE-HAND MONITOR 124 mg/dL H 71-99 Sep 03, 2024 04:41 PM [facility] GLUCOSE-HAND MONITOR CAPILLARY Specime n Type: CAPILLARY Comment: Test performed by: [id number] Meter #: [id number] Ordering Provider: FRANCK TURNER Report Released Date/Time: Sep 03, 2024 06:09 PM Reporting Lab: [address] [address] Performing Lab: [address] [address] GLUCOSE-HAND MONITOR 112 mg/dL H 71-99 Sep 03, 2024 01:35 PM [facility] CREATININE URINE Specimen Type: URINE Comment: ~Altered mental status with no identifiable cause Ordering Provider: FRANCK TURNER Report Released Date/Time: Sep 02, 2024 04:44 PM Reporting Lab: [facility] [address] [place] [address] Performing Lab: [address] [address] CREATININE 150.9 mg/dL Sep 03, 2024 01:35 PM [facility] URINE LYTES URINE Specimen Type : URINE Comment: ~Altered mental status with no identifiable cause Ordering Provider: FRANCK TURNER Report Released Date/Time: Sep 02, 2024 04:44 PM Reporting Lab: [address] [address] Performing Lab: [address] [address] SODIUM 130 mmol/L POTASSIUM 47.6 mmol/L CHLORIDE 137 mmol/L Sep 03, 2024 01:35 PM [facility] UREA NITROGEN URINE Specimen Type : URINE Comment: ~Altered mental status with no identifiable cause Ordering Provider: FRANCK TURNER Report Released Date/Time: Sep 02, 2024 04:44 PM Reporting Lab: [address] [address] Performing Lab: [address] [address] UREA NITROGEN 320 mg/dL Sep 03, 2024 01:35 PM [facility] URINALYSIS WITH REFLEX TO CULTURE URINE Specimen Type: URINE Comment: ~Altered mental status with no identifiable cause Ordering Provider: FRANCK TURNER Report Released Date/Time: Sep 02, 2024 04:44 PM Reporting Lab: [address] [address] Performing Lab: [address] [address] URINE COLOR Yellow Colorless-Yellow APPEARANCE CLOUDY H [...] H 0-28 Sep 03, 2024 01:35 PM [facility] OSMOLALITY URINE Specimen Type: URINE Comment: ~Altered mental status with no identifiable cause Ordering Provider: FRANCK TURNER Report Released Date/Time: Sep 02, 2024 04:44 PM Reporting Lab: [place] [phone] Performing Lab: [place] [phone] OSMOLALITY 522 mosm/kg 38-1400 Sep 03, 2024 11:58 AM [facility] GLUCOSE-HAND MONITOR CAPILLARY Specime n Type: CAPILLARY Comment: AAMIR RN notified Test performed by: [id number] Meter #: [id number] Ordering Provider: FRANCK TURNER Report Released Date/Time: Sep 03, 2024 12:15 PM Reporting Lab: [address] [address] Performing Lab: [address] [address] GLUCOSE-HAND MONITOR 135 mg/dL H Sep 03, 2024 07:09 AM [facility] GLUCOSE-HAND MONITOR CAPILLARY Specime n Type: CAPILLARY Comment: Test performed by: [id number] Meter #: [id number] Ordering Provider: FRANCK TURNER Report Released Date/Time: Sep 03, 2024 07:26 AM Reporting Lab: [address] [address] Performing Lab: [address] [address] GLUCOSE-HAND MONITOR 120 mg/dL H Sep 03, 2024 07:05 AM [facility] CBC/PLT BLOOD Specimen Type: BLOOD No comment entered. Ordering Provider: FRANCK TURNER Report Released Date/Time: Sep 02, 2024 04:29 PM Reporting Lab: [address] [address] Performing Lab: [address] [address] WBC 6.9 10*3/uL 5.0-10.0 RBC 3.48 10*6/uL L 4.6-6.2 HGB 9.5 g/dL L 14.0-18.0 HCT 29.1 L 42.0-52.0 MCV 83.6 fL 80.0-94.0 MCH 27.3 pg 27.0-31.0 MCHC 32.6 g/dL 32.0-36.0 PLT 258 10*3/uL 150-450 MPV 10.3 fL 9.0-13.1 RDW 14.8 11.0-16.0 NRBC 0.0 0.0-0.0 Sep 03, 2024 07:05 AM [facility] MAGNESIUM PLASMA Specimen Type: PLASM [...] 02, 2024 04:29 PM Reporting Lab: [address] [address] Performing Lab: [address] [address] MAGNESIUM 1.7 mg/dL 1.6-2.6 Sep 03, 2024 07:05 AM [facility] PANEL 1 PLASMA Specimen Type: [...] 02, 2024 04:29 PM Reporting Lab: [address] [address] Performing Lab: [address] [address] CREATININE 0.82 mg/dL 0.72-1.25 UREA NITROGEN 12 mg/dL 9-25 GLUCOSE 109 mg/dL H 74-100 SODIUM 129 mmol/L L 136-145 POTASSIUM 4.2 mmol/L 3.5-5.1 CHLORIDE 99 mmol/L 98-107 CO2 21 mmol/L L 22-29 CALCIUM 8.1 mg/dL L 8.4-10.2 ANION GAP 9 meq/L 3-19 eGFR (CKD-EPI) 90 Sep 03, 2024 07:05 AM [facility] GLYCOHEMOGLOBIN BLOOD Specimen Type: BLOOD Comment: Prediabetes: 5.7%-6.4% Diabetes: >= 6.5% [facility] guidelines for A1c interpretation: Glycemic control targets are based on Shared Decision Making between clinicians and patients. Criteria used to establish an A1c target recommendation can be found at https://www.al.gov/qualityandpatientsafety/ and include the use of result accuracy [...] 8.73 and 9.27. Ref: https://ngsp.org/CAPdata.asp. The in-house [employer] D-100 analyzer has a historical CV <= 2%. Contact the laboratory for further performance characteristics of this assay. Ordering Provider: FRANCK TURNER Report Released Date/Time: Sep 02, 2024 04:29 PM Reporting Lab: [address] [address] Performing Lab: [place] [phone] GLYCOHEMOGLOBIN 5.6 4.4-5.6 Sep 03, 2024 07:05 AM [facility] OSMOLALITY SERUM Specimen Type: SERUM No comment entered. Ordering Provider: FRANCK TURNER Report Released Date/Time: Sep 02, 2024 04:44 PM Reporting Lab: [address] [address] Performing Lab: [address] [address] OSMOLALITY 271 mosm/kg L 280-300 Sep 02, 2024 08:15 PM [facility] GLUCOSE-HAND MONITOR CAPILLARY Specime n Type: CAPILLARY Comment: AAMIR DEXTER notified Test performed by: [id number] Meter #: [id number] Ordering Provider: FRANCK TURNER Report Released Date/Time: Sep 02, 2024 08:57 PM Reporting Lab: [address] [address] Performing Lab: [address] [address] GLUCOSE-HAND MONITOR 126 mg/dL H 71-99 Sep 02, 2024 06:10 PM [facility] MRSA SURVL NARES DNA NARES [...] 02, 2024 05:12 PM Reporting Lab: [address] [address] Performing Lab: [address] [address] MRSA SURVL NARES DNA Negative Negative Sep 02, 2024 05:36 PM [facility] GLUCOSE-HAND MONITOR CAPILLARY Specime n Type: CAPILLARY Comment: Test performed by: [id number] Meter #: [id number] Ordering Provider: FRANCK TURNER Report Released Date/Time: Sep 02, 2024 05:53 PM Reporting Lab: [address] [address] Performing Lab: [address] [address] GLUCOSE-HAND MONITOR 127 mg/dL H 71-99 Aug 29, 2024 10:04 PM [facility] URINALYSIS WITH REFLEX TO CULTURE URINE Specimen Type: URINE Comment: ~For Test: URINALYSIS WITH REFLEX TO CULTURE ~REORDER Ordering Provider: FELISA COLE Report Released Date/Time: Aug 29, 2024 09:36 PM Reporting Lab: [address] [address] Performing Lab: [address] [address] URINE COLOR Yellow Colorless-Yellow APPEARANCE Clear Clear [...] 29, 2024 07:55 PM Reporting Lab: [address] [address] Performing Lab: [address] [address] HIGH SENSITIVITY TROPONIN I 7 4-35 Aug 29, 2024 08:32 PM [facility] CBC/PLT BLOOD Specimen Type: BLOOD No comment entered. Ordering Provider: FELISA COLE Report Released Date/Time: Aug 29, 2024 07:55 PM Reporting Lab: [address] [address] Performing Lab: [address] [address] WBC 11.2 10*3/uL H 5.0-10.0 RBC 3.97 [...] 29, 2024 07:55 PM Reporting Lab: [address] [address] Performing Lab: [address] [address] CREATININE 0.85 mg/dL 0.72-1.25 UREA NITROGEN 15 [...] mm[Hg] 16 /min 95 % [place] [facility] Sep 09, 2024 08:09 AM 97.7 F 77 /min 117/68 mm[Hg] 18 /min 91 % 6 [place] [facility] Sep 09, 2024 04:40 AM 213.6 lb 32 [place] [facility] Sep 09, 2024 04:11 AM 97.7 F 70 /min 168/79 mm[Hg] 20 /min 93 % 0 [place] [facility] Advance Directives: All historical and current [...] 08, 2024 ADVANCE DIRECTIVE DISCUSSION [facility] Radiology Reports: +/- 30 days of [...] BRAIN W & W/O: LUIS MANUEL PERDOMO [id number] -1945 M Exm Date: SEP 06, 2024@13:40 Req Phys: FRANCK TURNER Loc: 5-MED/TEL/09-06-2024@19:09 Img Loc: [facility] Service: [place] [address] (Case [id number] COMPLETE) MRI BRAIN W & W/O (MRI Detailed) CPT:80315 Contrast Media : Gadolinium Reason for Study: SEE CLINICAL HISTORY Pharmaceutical: GADOTERIDOL 279.3MG/ML 20ML INJ, 19ml Clinical History: MRI Screening (Required): IMPLANTED DEVICE DOCUMENTATION IMPLANTED DEVICE DOCUMENTATION NOT FOUND Does the [place] have any Cardiac Implants? None Does the have any implanted stimulators? None Does the [place] have cochlear implants? No Does the [place] have Cerebral aneurysm clip(s)? I don't know Does the have any shrapnel? I don't know If yes, where in your body? Please list other implants not listed above: MRI table has a weight limit of 551 lbs. Grenora's Weight: *212 lb [96.16 kg] (09/04/2024 05:19) Is this patient claustrophobic?: No REASON FOR EXAM:MULTIPLE SCLEROSIS (indicate suspected or established) PERTINENT PATIENT HISTORY: MS c/f for flare Risk factors for GADOLINIUM NEPHROGENIC SYSTEMIC SCLEROSIS: Report Status: Verified Date Reported: SEP 06, 2024 Date Verified: SEP 06, 2024 Computer Network Engineer E-Sig: Report: MRI brain without and [...] Staff: ARCENIO LEYVA, Staff Radiologist Verified by head insulation board saw operator for ARCENIO LEYVA /ARCENIO AVILA-D [facility] Sep 06, 2024 01:40 PM MRI C SPINE W & W/ O CONTRAST(FURTHER SEQUENCES): LUIS MANUEL PERDOMO [id number] -1945 M Exm Date: SEP 06, 2024@13:40 Req Phys: FRANCK TURNERISIAHFLOSav Pat Loc: 5-MED/TEL/09-07-2024@06:42 Img Loc: [facility] Service: [place] [address] (Case [id number] COMPLETE) MRI C SPINE W & W/O CONTRAST(FURT(MRI Detailed) CPT:90653 Contrast Media : Gadolinium Reason for Study: SEE CLINICAL HISTORY Pharmaceutical: GADOTERIDOL 279.3MG/ML 20ML INJ, 19ml Clinical History: STATUS OF PLAIN FILMS:Not performed (Provide justification for MR W/O prior plain films below.) MRI for MS MRI Screening (Required): IMPLANTED DEVICE DOCUMENTATION IMPLANTED DEVICE DOCUMENTATION NOT FOUND Does the have any Cardiac Implants? None Does the [place] have any implanted stimulators? None Does the have cochlear implants? No Does the have Cerebral aneurysm clip(s)? I don't know Does the have any shrapnel? I don't know If yes, where in your body? Please list other implants not listed above: MRI table has a weight limit of 551 lbs. Grenora's Weight: *212 lb [96.16 kg] (09/04/2024 05:19) Is this patient claustrophobic?: No REASON FOR EXAM: MULTIPLE SCLEROSIS (indicate suspected or established) PERTINENT PATIENT HISTORY: MS c/f flare Risk factors for GADOLINIUM NEPHROGENIC SYSTEMIC SCLEROSIS: Report Status: Verified Date Reported: SEP 07, 2024 Date Verified: SEP 07, 2024 Computer Network Engineer E-Sig: Report: EXAMINATION: MRI OF THE [...] Interpreting Staff: HUANG TAI, Radiologist Verified by head insulation board saw operator for HUANG TAI /HUANG WHEATLEY-Sav [facility] Sep 03, 2024 10:45 AM CHEST SINGLE(1) EW: LUIS MANUEL PERDOMO [id number] -[id number] M Exm Date: SEP 03, 2024@10:45 Req Phys: FRANCK TURNER Loc: 5-MED/TEL/09-03-2024@10:56 Img Loc: [facility] RADIOLOGY Service: [place] [address] (Case [id number] COMPLETE)CHEST SINGLE(1) VIEW (RAD Detailed) CPT:24511 Proc Modifiers : PORTABLE EXAM Reason for Study: Eval volume status Clinical History: Report Status: Verified Date Reported: SEP 03, 2024 Date Verified: SEP 03, 2024 Computer Network Engineer E-Sig: Report: EXAMINATION: SINGLE VIEW CHEST [...] Interpreting Staff: HUANG TAI, Radiologist Verified by head insulation board saw operator for HUANG TAI /HUANG WHEATLEY-CDD [facility] Aug 29, 2024 08:[address] HEAD W/O CONT: LUIS MANUEL PERDOMO [id number] -1945 M Exm Date: AUG 29, 2024@20:28 Req Phys: FELISA COLE Loc: ED/4P-12A (Req'g Loc) Img Loc: CT SCAN Service: [place] [address] (Case [id number] COMPLETE) CT HEAD W/O CONT (CT Detailed) CPT:12259 Reason for Study: SEE CLINICAL HISTORY Clinical History: REASON FOR SEND OUT: ATTENDING PHYSICIAN NAME: New transient neurological s/s - suspected TIA HISTORY/REASON FOR EXAM: confusion Report Status: Verified Date Reported: AUG 29, 2024 Date Verified: AUG 29, 2024 Computer Network Engineer E-Sig: Report: HISTORY confusion COMPARISON No [...] Staff: ABDIRAHMAN CROW, Staff Physician Verified by head insulation board saw operator for ABDIRAHMAN CROW /[facility] [...] [facility] [CLIA# [id number]] [address] [place] [id number] Accession [UID]: [id number]] Received: Sep 03, 2024@14:02 Collection sample: URINE, [...] [facility] [CLIA# [id number]] [address] [place] [id number] [facility] Sep 02, 2024 06:00 PM LR MICROBIOLOGY RE PORT: Reporting Lab: [facility] [CLIA# [id number]] [address] [place] [address] Accession [UID]: [id number] [[id number]] Received: Sep 02, 2024@18:07 Collection sample: BLD CULTURE BOTTLES Collection date: Sep 02, 2024 18:00 Site/Specimen: BLOOD Provider: FRANCK TURNER Comment on specimen: L HAND Test(s) ordered: CULTURE, BLOOD................ completed: Sep 08, 2024 * BACTERIOLOGY FINAL REPORT => Sep 08, 2024 08:25 TECH CODE: [id number] Bacteriology Remark(s): Blood culture status=NO GROWTH (unless notified otherwise) 09/03/2024 AEROBIC: NO GROWTH ANAEROBIC: NO GROWTH =--=--=--=--=--=--=--=--=--=-- =--=--=--=--=--=--=--=--=--=-- =--=--=--=--=--=-- Performing Laboratory: Bacteriology Report Performed By: [facility] [CLIA# [id number]] [address] [place] [address] MAGDY CALABRESE [facility] Aug 29, 2024 10:18 PM LR MICROBIOLOGY RE PORT: Reporting Lab: [facility] [CLIA# [id number]] [address] [place] [address] Accession [UID]: [id number] [[id number]] Received: Aug 29, 2024@22:18 Collection sample: URINE, CLEAN CATCH Collection date: Aug 29, 2024 22:18 Site/Specimen: URINE Provider: FELISA COLE Test(s) ordered: CULTURE, URINE................ completed: Aug 31, 2024 09:51 * BACTERIOLOGY FINAL REPORT => Aug 31, 2024 09:51 TECH CODE: [id number] Bacteriology Remark(s): NO GROWTH 08/30/2024 <10,000 CFU/ML. 08/31/2024 =--=--=--=--=--=--=--=--=--=-- =--=--=--=--=--=--=--=--=--=-- =--=--=--=--=--=-- Performing Laboratory: Bacteriology Report Performed By: [facility] [CLIA# [id number]] [address] [place] [address] MAGDY [facility]ABRESE-[facility]
--- OUTSIDE RECORDS SUMMARY | 2024-09-09 04:30 | XMS_ITS | Encounter Summary ---
Author Name [facility] [place] [place] [facility] [place] Address [address] [place] [address] Care Team Providers Care Gage Maker Name Role Phone YULISSA HENDERSON Primary [...] PLAN F Mar 24, 2014 PLAN F [id number] [phone] LUIS MANUEL PERDOMO PATIENT BS [place] [employer] PREFERRED PROVIDER ORGANIZAT ION (PPO) [facility] Sep 21, 2012 [id number] LUIS MANUEL PERDOMO PATIENT [employer] ([id number]) PRESCRIPT ION [id number] Sep 21, 2012 [id number] [phone] LUIS MANUEL PERDOMO PATIENT MEDICARE (WNR) MEDICARE (M) PART B Sep 21, 2012 PART B [id number] NOEMI PERDOMO PATIENT MEDICARE (WNR) MEDICARE (M) PART A Jan 22, 2011 PART A [id number] NOEMI PERDOMO PATIENT MEDICARE PART D (WNR) MEDICARE (M) PART D Mar 24, 2014 PART D [id number] LUIS MANUEL PERDOMO PATIENT Selected Encounter This section includes the information on record at [place] for the Encounter. Date/Time Encounter Type Encounter Description Reason Provider Source Sep 09, 2024 08:30 AM CASE MANAGEMENT SOCIAL WORK SERVICE ICD-10-CM Z75.8 Oth prob related to medical facilities and [facility] DADA GOEL IHE Encounter Template Text not used by [place] Assessments - Encounter Diagnoses This section includes the primary and secondary diagnoses documented for the Encounter. Date/Time Primary/Secondary Diagnosis Diagnosis Name Provider Source Sep 09, 2024 01:02 PM PRIMARY Oth prob related to medical facilities and [facility] SUMAYA GOEL [facility] Plan of Treatment: Future Appointments (+ 6 months) and Future Tests (+/- 45 days) The Plan of Treatment section includes future care activities for the patient from all [place] treatmentfacilities. This section includes future appointments and future orders which are active, pending or scheduled. Future Appointments This section includes appointments that were scheduled to occur 6 months from the date of the Encounter, up to a maximum of 20 appointments. The data comes from all [place] treatment [facility]. Appointment Date/Time Appointment Type Appointme nt Facility Name Sep 13, 2024 08:00 AM [facility] The data comes from all [place] treatment [facility]. Test Date/Time Test Type Test Details Facility Name Sep 13, 2024 01:33 PM Consult Order [facility] SKILLED HOME CARE Cons Airframe Design Engineer's Choice [facility] Lab Results: +/- [...] Type Comment Sep 09, 2024 12:16 PM [facility] GLUCOSE-HAND MONITOR CAPILLARY Specimen Type: CAPILLARY Comment: Test performed by: [id number] Meter #: [id number] Ordering Provider: FRANCK TURNER Report Released Date/Time: Sep 09, 2024 12:33 PM Reporting Lab: [address] [address] Performing Lab: [address] [address] GLUCOSE-HAND MONITOR 116 mg/dL H 71-99 Sep 09, 2024 06:07 AM [facility] GLUCOSE-HAND MONITOR CAPILLARY Specime n Type: CAPILLARY Comment: Test performed by: [id number] Meter #: [id number] Ordering Provider: FRANCK TURNER Report Released Date/Time: Sep 09, 2024 08:17 AM Reporting Lab: [address] [address] Performing Lab: [address] [address] GLUCOSE-HAND MONITOR 112 mg/dL H 71-99 Sep 08, 2024 09:13 PM [facility] GLUCOSE-HAND MONITOR CAPILLARY Specime n Type: CAPILLARY Comment: Test performed by: [id number] Meter #: [id number] Ordering Provider: FRANCK TURNER Report Released Date/Time: Sep 08, 2024 09:31 PM Reporting Lab: [address] [address] Performing Lab: [address] [address] GLUCOSE-HAND MONITOR 107 mg/dL H 71-99 Sep 08, 2024 03:49 PM [facility] GLUCOSE-HAND MONITOR CAPILLARY Specime n Type: CAPILLARY Comment: AAMIR RN notified Test performed by: [id number] Meter #: [id number] Ordering Provider: FRANCK TURNER Report Released Date/Time: Sep 08, 2024 04:33 PM Reporting Lab: [address] [address] Performing Lab: [address] [address] GLUCOSE-HAND MONITOR 162 mg/dL H Sep 08, 2024 11:43 AM [facility] GLUCOSE-HAND MONITOR CAPILLARY Specime n Type: CAPILLARY Comment: AAMIR RN notified Test performed by: [id number] Meter #: [id number] Ordering Provider: FRANCK TURNER Report Released Date/Time: Sep 08, 2024 12:03 PM Reporting Lab: [address] [address] Performing Lab: [address] GLUCOSE-HAND MONITOR 133 mg/dL H Sep 08, 2024 06:13 AM [facility] GLUCOSE-HAND MONITOR CAPILLARY Specime n Type: CAPILLARY Comment: Test performed by: [id number] Meter #: [id number] Ordering Provider: FRANCK TURNER Report Released Date/Time: Sep 08, 2024 06:46 AM Reporting Lab: [address] [address] Performing Lab: [address] [address] GLUCOSE-HAND MONITOR 104 mg/dL H Sep 07, 2024 07:59 PM [facility] GLUCOSE-HAND MONITOR CAPILLARY Specime n Type: CAPILLARY Comment: Test performed by: [id number] Meter #: [id number] Ordering Provider: FRANCK TURNER Report Released Date/Time: Sep 07, 2024 09:05 PM Reporting Lab: [address] [address] Performing Lab: [address] [address] GLUCOSE-HAND MONITOR 107 mg/dL H Sep 07, 2024 04:39 PM [facility] GLUCOSE-HAND MONITOR CAPILLARY Specime n Type: CAPILLARY Comment: Test performed by: [id number] Meter #: [id number] Ordering Provider: FRANCK TURNER Report Released Date/Time: Sep 07, 2024 05:09 PM Reporting Lab: [address] [place] [address] Performing Lab: [address] [address] GLUCOSE-HAND MONITOR 105 mg/dL H 71-99 Sep 07, 2024 11:41 AM [facility] GLUCOSE-HAND MONITOR CAPILLARY Specime n Type: CAPILLARY Comment: Test performed by: [id number] Meter #: [id number] Ordering Provider: FRANCK TURNER Report Released Date/Time: Sep 07, 2024 12:41 PM Reporting Lab: [address] [address] Performing Lab: [address] [address] GLUCOSE-HAND MONITOR 144 mg/dL H -Sep 07, 2024 05:56 AM [facility] GLUCOSE-HAND MONITOR CAPILLARY Specime n Type: CAPILLARY Comment: Test performed by: [id number] Meter #: [id number] Ordering Provider: FRANCK TURNER Report Released Date/Time: Sep 07, 2024 06:31 AM Reporting Lab: [address] [address] Performing Lab: [address] [address] GLUCOSE-HAND MONITOR 96 mg/dL -Sep 06, 2024 08:10 PM [facility] GLUCOSE-HAND MONITOR CAPILLARY Specime n Type: CAPILLARY Comment: Test performed by: [id number] Meter #: [id number] Ordering Provider: FRANCK TURNER Report Released Date/Time: Sep 06, 2024 08:52 PM Reporting Lab: [address] [address] Performing Lab: [address] [address] GLUCOSE-HAND MONITOR 124 mg/dL H -Sep 06, 2024 04:27 PM [facility] GLUCOSE-HAND MONITOR CAPILLARY Specime n Type: CAPILLARY Comment: Test performed by: [id number] Meter #: [id number] Ordering Provider: FRANCK TURNER Report Released Date/Time: Sep 06, 2024 05:15 PM Reporting Lab: [address] [address] Performing Lab: [address] [address] GLUCOSE-HAND MONITOR 107 mg/dL H Sep 06, 2024 12:12 PM [facility] GLUCOSE-HAND MONITOR CAPILLARY Specime n Type: CAPILLARY Comment: Test performed by: [id number] Meter #: [id number] Ordering Provider: FRANCK TURNER Report Released Date/Time: Sep 06, 2024 12:29 PM Reporting Lab: [address] [address] Performing Lab: [address] [address] GLUCOSE-HAND MONITOR 181 mg/dL H Sep 06, 2024 06:13 AM [facility] GLUCOSE-HAND MONITOR CAPILLARY Specime n Type: CAPILLARY Comment: Test performed by: [id number] Meter #: [id number] Ordering Provider: FRANCK TURNER Report Released Date/Time: Sep 06, 2024 06:36 AM Reporting Lab: [address] [address] Performing Lab: [address] [address] GLUCOSE-HAND MONITOR 102 mg/dL H Sep 05, 2024 08:47 PM [facility] GLUCOSE-HAND MONITOR CAPILLARY Specime n Type: CAPILLARY Comment: Test performed by: [id number] Meter #: [id number] Ordering Provider: FRANCK TURNER Report Released Date/Time: Sep 06, 2024 02:13 AM Reporting Lab: [address] [address] Performing Lab: [address] [address] GLUCOSE-HAND MONITOR 103 mg/dL H Sep 05, 2024 04:40 PM [facility] GLUCOSE-HAND MONITOR CAPILLARY Specime n Type: CAPILLARY Comment: AAMIR RN notified Test performed by: [id number] Meter #: [id number] Ordering Provider: FRANCK TURNER Report Released Date/Time: Sep 05, 2024 05:11 PM Reporting Lab: [address] [address] Performing Lab: [address] [address] GLUCOSE-HAND MONITOR 113 mg/dL H Sep 05, 2024 12:06 PM [facility] GLUCOSE-HAND MONITOR CAPILLARY Specime n Type: CAPILLARY Comment: Test performed by: [id number] Meter #: [id number] Ordering Provider: FRANCK TURNER Report Released Date/Time: Sep 05, 2024 12:23 PM Reporting Lab: [address] [address] Performing Lab: [address] [address] GLUCOSE-HAND MONITOR 115 mg/dL H Sep 05, 2024 06:26 AM [facility] GLUCOSE-HAND MONITOR CAPILLARY Specime n Type: CAPILLARY Comment: AAMIR Correction Dose Test performed by: [id number] Meter #: [id number] Ordering Provider: FRANCK TURNER Report Released Date/Time: Sep 05, 2024 06:43 AM Reporting Lab: [address] [address] Performing Lab: [address] [address] GLUCOSE-HAND MONITOR 111 mg/dL H Sep 04, 2024 08:59 PM [facility] GLUCOSE-HAND MONITOR CAPILLARY Specime n Type: CAPILLARY Comment: AAMIR RN notified Test performed by: [id number] Meter #: [id number] Ordering Provider: FRANCK TURNER Report Released Date/Time: Sep 04, 2024 09:36 PM Reporting Lab: [address] [address] Performing Lab: [address] [address] GLUCOSE-HAND MONITOR 123 mg/dL H Sep 04, 2024 04:41 PM [facility] GLUCOSE-HAND MONITOR CAPILLARY Specime n Type: CAPILLARY Comment: AAMIR RN notified Test performed by: [id number] Meter #: [id number] Ordering Provider: FRANCK TURNER Report Released Date/Time: Sep 04, 2024 05:03 PM Reporting Lab: [place] [phone] Performing Lab: [place] [address] GLUCOSE-HAND MONITOR 118 mg/dL H Sep 04, 2024 12:36 PM [facility] GLUCOSE-HAND MONITOR CAPILLARY Specime n Type: CAPILLARY Comment: AAMIR RN notified Test performed by: [id number] Meter #: [id number] Ordering Provider: FRANCK TURNER Report Released Date/Time: Sep 04, 2024 12:53 PM Reporting Lab: [place] [address] Performing Lab: [place] [address] GLUCOSE-HAND MONITOR 129 mg/dL H Sep 04, 2024 12:03 PM [facility] RESPIRATORY VIRUS PANEL (BIOFIRE) NASOPHARYN X Specimen Type: NASOPHARYNX Comment: ~For Test: RESPIRATORY VIRUS PANEL (BIOFIRE) ~ORDER READ BACK TO: FRANCK TURNER 09/04/24@11:30 Ordering Provider: FRANCK TURNER Report Released Date/Time: Sep 04, 2024 11:33 AM Reporting Lab: [place] [phone] Performing Lab: [place] [phone] ADENOVIRUS (BIOFIRE) Not Detected -Not D etected [...] Sep 04, 2024 06:55 AM [facility] MAGNESIUM PLASMA Specimen Type: PLASM A Comment: [...] Sep 03, 2024 11:10 AM Reporting Lab: [facility] [address] [facility] [address] Performing Lab: [facility] [address] [place] [address] MAGNESIUM 1.8 mg/dL 1.6-2.6 Sep 04, 2024 [...] 03, 2024 11:10 AM Reporting Lab: [address] [address] Performing Lab: [address] CREATININE 0.75 mg/dL 0.72-1.25 UREA NITROGEN [...] n Type: CAPILLARY Comment: Test performed by: [id number] Meter #: [id number] Ordering Provider: FRANCK TURNER Report Released Date/Time: Sep 04, 2024 06:28 AM Reporting Lab: [address] [address] Performing Lab: [address] [address] GLUCOSE-HAND MONITOR 114 mg/dL H 71-99 Sep 03, 2024 05:19 PM [facility] GLUCOSE-HAND MONITOR CAPILLARY Specime n Type: CAPILLARY Comment: Test performed by: [id number] Meter #: [id number] Ordering Provider: FRANCK TURNER Report Released Date/Time: Sep 03, 2024 05:37 PM Reporting Lab: [address] [address] Performing Lab: [address] [address] GLUCOSE-HAND MONITOR 124 mg/dL H 71-99 Sep 03, 2024 04:41 PM [facility] GLUCOSE-HAND MONITOR CAPILLARY Specime n Type: CAPILLARY Comment: Test performed by: [id number] Meter #: [id number] Ordering Provider: FRANCK TURNER Report Released Date/Time: Sep 03, 2024 06:09 PM Reporting Lab: [address] [address] Performing Lab: [address] [address] GLUCOSE-HAND MONITOR 112 mg/dL H 71-99 Sep 03, 2024 01:35 PM [facility] CREATININE URINE Specimen Type: URINE Comment: ~Altered mental status with no identifiable cause Ordering Provider: FRANCK TURNER Report Released Date/Time: Sep 02, 2024 04:44 PM Reporting Lab: [address] [address] Performing Lab: [address] [address] CREATININE 150.9 mg/dL Sep 03, 2024 01:35 PM [facility] URINE LYTES URINE Specimen Type : URINE Comment: ~Altered mental status with no identifiable cause Ordering Provider: FRANCK TURNER Report Released Date/Time: Sep 02, 2024 04:44 PM Reporting Lab: [address] [address] Performing Lab: [address] [address] SODIUM 130 mmol/L POTASSIUM 47.6 mmol/L CHLORIDE 137 mmol/L Sep 03, 2024 01:35 PM [facility] UREA NITROGEN URINE Specimen Type : URINE Comment: ~Altered mental status with no identifiable cause Ordering Provider: FRANCK TURNER Report Released Date/Time: Sep 02, 2024 04:44 PM Reporting Lab: [address] [address] Performing Lab: [address] [address] UREA NITROGEN 320 mg/dL Sep 03, 2024 01:35 PM [facility] OSMOLALITY URINE Specimen Type: URINE Comment: ~Altered mental status with no identifiable cause Ordering Provider: FRANCK TURNER Report Released Date/Time: Sep 02, 2024 04:44 PM Reporting Lab: [address] [address] Performing Lab: [address] [address] OSMOLALITY 522 mosm/kg 38-1400 Sep 03, 2024 01:35 PM [facility] URINALYSIS WITH REFLEX TO CULTURE URINE Specimen Type: URINE Comment: ~Altered mental status with no identifiable cause Ordering Provider: FRANCK TURNER Report Released Date/Time: Sep 02, 2024 04:44 PM Reporting Lab: [address] [address] Performing Lab: [address] [address] URINE COLOR Yellow Colorless-Yellow APPEARANCE CLOUDY H [...] H 0-28 Sep 03, 2024 11:58 AM [facility] GLUCOSE-HAND MONITOR CAPILLARY Specime n Type: CAPILLARY Comment: AAMIR RN notified Test performed by: [id number] Meter #: [id number] Ordering Provider: FRANCK TURNER Report Released Date/Time: Sep 03, 2024 12:15 PM Reporting Lab: [address] [address] Performing Lab: [address] [address] GLUCOSE-HAND MONITOR 135 mg/dL H 71-99 Sep 03, 2024 07:09 AM [facility] GLUCOSE-HAND MONITOR CAPILLARY Specime n Type: CAPILLARY Comment: Test performed by: [id number] Meter #: [id number] Ordering Provider: FRANCK TURNER Report Released Date/Time: Sep 03, 2024 07:26 AM Reporting Lab: [address] [address] Performing Lab: [address] [address] GLUCOSE-HAND MONITOR 120 mg/dL H 71-99 Sep 03, 2024 07:05 AM [facility] [...] 02, 2024 04:29 PM Reporting Lab: [address] [address] Performing Lab: [address] [address] MAGNESIUM 1.7 mg/dL 1.6-2.6 Sep 03, 2024 07:05 AM [facility] CBC/PLT BLOOD Specimen Type: BLOOD No comment entered. Ordering Provider: FRANCK TURNER Report Released Date/Time: Sep 02, 2024 04:29 PM Reporting Lab: [address] [address] Performing Lab: [address] [address] WBC 6.9 10*3/uL 5.0-10.0 RBC 3.48 10*6/uL [...] 02, 2024 04:29 PM Reporting Lab: [address] [address] Performing Lab: [address] [address] CREATININE 0.82 mg/dL 0.72-1.25 UREA NITROGEN 12 [...] Comment: Prediabetes: 5.7%-6.4% Diabetes: >= 6.5% [facility] guidelines for A1c interpretation: Glycemic control [...] 8.73 and 9.27. Ref: https://ngsp.org/CAPdata.asp. The in-house [employer] D-100 analyzer has a historical CV <= 2%. Contact the laboratory for further performance characteristics of this assay. Ordering Provider: FRANCK TURNER Report Released Date/Time: Sep 02, 2024 04:29 PM Reporting Lab: [place] [phone] Performing Lab: [place] [phone] GLYCOHEMOGLOBIN 5.6 4.4-5.6 Sep 03, 2024 07:05 AM [facility] OSMOLALITY SERUM Specimen Type: SERUM No comment entered. Ordering Provider: FRANCK TURNER Report Released Date/Time: Sep 02, 2024 04:44 PM Reporting Lab: [address] [address] Performing Lab: [address] [address] OSMOLALITY 271 mosm/kg L 280-300 Sep 02, 2024 08:15 PM [facility] GLUCOSE-HAND MONITOR CAPILLARY Specime n Type: CAPILLARY Comment: AAMIR RN notified Test performed by: [id number] Meter #: [id number] Ordering Provider: FRANCK TURNER Report Released Date/Time: Sep 02, 2024 08:57 PM Reporting Lab: [address] [address] Performing Lab: [address] [address] GLUCOSE-HAND MONITOR 126 mg/dL H 71-99 Sep [...] 02, 2024 05:12 PM Reporting Lab: [address] [address] Performing Lab: [place] [phone] MRSA SURVL NARES DNA Negative Negative Sep 02, 2024 05:36 PM [facility] GLUCOSE-HAND MONITOR CAPILLARY Specime n Type: CAPILLARY Comment: Test performed by: [id number] Meter #: [id number] Ordering Provider: FRANCK TURNER Report Released Date/Time: Sep 02, 2024 05:53 PM Reporting Lab: [address] [address] Performing Lab: [place] [phone] GLUCOSE-HAND MONITOR 127 mg/dL H 71-99 Aug 29, 2024 10:04 PM [facility] URINALYSIS WITH REFLEX TO CULTURE URINE Specimen Type: URINE Comment: ~For Test: URINALYSIS WITH REFLEX TO CULTURE ~REORDER Ordering Provider: FELISA COLE Report Released Date/Time: Aug 29, 2024 09:36 PM Reporting Lab: [address] [address] Performing Lab: [address] [address] URINE COLOR Yellow Colorless-Yellow APPEARANCE Clear Clear [...] /[LPF] 0-28 Aug 29, 2024 08:32 PM [facility] HIGH SENSITIVITY TROPONIN I [...] I information resource can be reached in [facility] in the Tools menu, under the [...] 29, 2024 07:55 PM Reporting Lab: [address] [address] Performing Lab: [address] [address] HIGH SENSITIVITY TROPONIN I 7 4-35 Aug 29, 2024 08:32 PM [facility] CBC/PLT BLOOD Specimen Type: BLOOD No comment entered. Ordering Provider: FELISA COLE Report Released Date/Time: Aug 29, 2024 07:55 PM Reporting Lab: [address] [place] [address] Performing Lab: [facility] [address] [facility] [address] WBC 11.2 10*3/uL H 5.0-10.0 RBC 3.97 10*6/uL L 4.6-6.2 HGB 10.9 g/dL L 14.0-18.0 HCT 33.5 L 42.0-52.0 MCV 84.4 fL 80.0-94.0 MCH 27.5 pg 27.0-31.0 MCHC 32.5 g/dL 32.0-36.0 PLT 230 10*3/uL 150-450 MPV 10.2 fL 9.0-13.1 RDW 14.6 11.0-16.0 NRBC 0.0 0.0-0.0 Aug 29, 2024 08:32 PM [facility] PANEL 5 PLASMA Specimen Type: [...] 29, 2024 07:55 PM Reporting Lab: [address] [address] Performing Lab: [address] [address] CREATININE 0.85 mg/dL 0.72-1.25 UREA NITROGEN 15 [...] /min 167/78 mm[Hg] 16 /min 95 % [facility] Sep 09, 2024 08:09 AM 97.7 F 77 /min 117/68 mm[Hg] 18 /min 91 % 6 [place] Sep 09, 2024 04:40 AM 213.6 lb 32 [place] Sep 09, 2024 04:11 AM 97.7 F 70 /min 168/79 mm[Hg] 20 /min 93 % 0 [facility] Advance Directives: All historical [...] Mar 08, 2024 ADVANCE DIRECTIVE DISCUSSION [facility] Radiology Reports: +/- 30 days [...] BRAIN W & W/O: LUIS MANUEL PERDOMO [id number] -1945 M Exm Date: SEP 06, 2024@13:40 Req Phys: FRANCK TURNERFRANNY Pat Loc: 5-MED/TEL/09-06-2024@19:09 Img Loc: [facility] Service: [place] [address] (Case [id number] COMPLETE) MRI BRAIN W & W/O (MRI Detailed) CPT:83318 Contrast Media : Gadolinium Reason for Study: SEE CLINICAL HISTORY Pharmaceutical: GADOTERIDOL 279.3MG/ML 20ML INJ, 19ml Clinical History: MRI Screening (Required): IMPLANTED DEVICE DOCUMENTATION IMPLANTED DEVICE DOCUMENTATION NOT FOUND Does the have any Cardiac Implants? None Does the [place] have any implanted stimulators? None Does the have cochlear implants? No Does the [place] have Cerebral aneurysm clip(s)? I don't know Does the [place] have any shrapnel? I don't know If [...] 06, 2024 Date Verified: SEP 06, 2024 Community Cultural Development Officer E-Sig: Report: MRI brain without and [...] ARCENIO LEYVA, Staff Radiologist Verified by pharmacy general manager for ARCENIO LEYVA /ARCENIO AVILA-CDD [facility] Sep 06, 2024 01:40 PM MRI C SPINE W & W/ O CONTRAST(FURTHER SEQUENCES): LUIS MANUEL PERDOMO [id number] -1945 M Exm Date: SEP 06, 2024@13:40 Req Phys: FRANCK TURNER [facility] Loc: 5-MED/TEL/09-07-2024@06:42 Img Loc: [facility] Service: [facility]ICE [place] [id number] (Case [id number] COMPLETE) MRI C SPINE W & W/O CONTRAST(FURT(MRI Detailed) CPT:61012 Contrast Media : Gadolinium Reason for Study: SEE CLINICAL HISTORY Pharmaceutical: GADOTERIDOL 279.3MG/ML 20ML INJ, 19ml Clinical History: STATUS OF PLAIN FILMS:Not performed (Provide justification for MR W/O prior plain films below.) MRI for MS MRI Screening (Required): IMPLANTED DEVICE DOCUMENTATION IMPLANTED DEVICE DOCUMENTATION NOT FOUND Does the [place] have any Cardiac Implants? None Does the [place] have any implanted stimulators? None Does the [place] have cochlear implants? No Does the have Cerebral aneurysm clip(s)? I don't know Does the [place] have any shrapnel? I don't know If yes, where in your body? Please list other implants not listed above: MRI table has a weight limit of 551 lbs. [place]ian's Weight: *212 lb [96.16 kg] (09/04/2024 05:19) Is this patient claustrophobic?: No REASON FOR EXAM: MULTIPLE SCLEROSIS (indicate suspected or established) PERTINENT PATIENT HISTORY: MS c/f flare Risk factors for GADOLINIUM NEPHROGENIC SYSTEMIC SCLEROSIS: Report Status: Verified Date Reported: SEP 07, 2024 Date Verified: SEP 07, 2024 Community Cultural Development Officer E-Sig: Report: EXAMINATION: MRI OF THE [...] Staff: HUANG TAI, Radiologist Verified by pharmacy general manager for HUANG TAI /HUANG WHEATLEY-MALKA [facility] Sep 03, 2024 10:45 AM CHEST SINGLE(1) EW: LUIS MANUEL PERDOMO [id number] -1945 M Exm Date: SEP 03, 2024@10:45 Req Phys: FRANCK TURNER Pat Loc: 5-MED/TEL/09-03-2024@10:56 Img Loc: CDD RADIOLOGY Service: [place] [address] (Case [id number] COMPLETE)CHEST SINGLE(1) VIEW (RAD Detailed) CPT:89754 Proc Modifiers : PORTABLE EXAM Reason for Study: Eval volume status Clinical History: Report Status: Verified Date Reported: SEP 03, 2024 Date Verified: SEP 03, 2024 Community Cultural Development Officer E-Sig: Report: EXAMINATION: SINGLE VIEW CHEST [...] Staff: HUANG TAI, Radiologist Verified by pharmacy general manager for HUANG TAI /HUANG WHEATLEY-Sav [facility] Aug 29, 2024 08:[address] HEAD W/O CONT: LUIS MANUEL PERDOMO [id number] -1945 M Exm Date: AUG 29, 2024@20:28 Req Phys: FELISA COLE Loc: ED/4P-12A (Req'g Loc) Img Loc: CT SCAN Service: [place] [address] (Case [id number] COMPLETE) CT HEAD W/O CONT (CT Detailed) CPT:54836 Reason for Study: SEE CLINICAL HISTORY Clinical History: REASON FOR SEND OUT: ATTENDING PHYSICIAN NAME: New transient neurological s/s - suspected TIA HISTORY/REASON FOR EXAM: confusion Report Status: Verified Date Reported: AUG 29, 2024 Date Verified: AUG 29, 2024 Community Cultural Development Officer E-Sig: Report: HISTORY confusion COMPARISON No [...] ABDIRAHMAN CROW, Staff Physician Verified by pharmacy general manager for ABDIRAHMAN CROW [facility] Pathology Reports: +/- 30 [...] comes from all [place] treatment facilities. Date/Time Pathology Report Provider Source Sep 03, 2024 01:35 PM LR MICROBIOLOGY RE [place]: Reporting Lab: [facility] [CLIA# [id number]] [address] [place] [id number] Accession [UID]: [id number] [[id number]] Received: Sep 03, 2024@14:02 Collection sample: URINE, [...] Performed By: [facility] [CLIA# [id number]] [address] [place], [place] [id number] MAGDY CALABRESE [facility] Sep 02, 2024 06:00 PM LR MICROBIOLOGY RE PORT: Reporting Lab: [facility] [IA# [id number]] [address] [place], [place] [id number] Accession [UID]: [id number] [[id number]] Received: Sep 02, 2024@18:07 Collection sample: BLD CULTURE BOTTLES Collection date: Sep 02, 2024 18:00 Site/Specimen: BLOOD Provider: FRANCK TURNER Comment on specimen: L HAND Test(s) ordered: CULTURE, BLOOD................ completed: Sep 08, 2024 * BACTERIOLOGY FINAL REPORT => Sep 08, 2024 08:25 [facility] CODE: [id number] Bacteriology Remark(s): Blood culture status=NO GROWTH (unless notified otherwise) 09/03/2024 AEROBIC: NO GROWTH ANAEROBIC: NO GROWTH =--=--=--=--=--=--=--=--=--=-- =--=--=--=--=--=--=--=--=--=-- =--=--=--=--=--=-- Performing Laboratory: Bacteriology Report Performed By: [facility] [CLIA# [id number]] [address] [place] [id number] MAGDY CALABRESE [facility] Aug 29, 2024 10:18 PM LR MICROBIOLOGY RE PORT: Reporting Lab: [facility] [IA# [id number]] [address] [place], [place] [id number] Accession [UID]: [id number] [[id number]] Received: Aug 29, 2024@22:18 Collection sample: URINE, CLEAN CATCH Collection date: Aug 29, 2024 22:18 Site/Specimen: URINE Provider: FELISA COLE Test(s) ordered: CULTURE, URINE................ completed: Aug 31, 2024 09:51 * BACTERIOLOGY FINAL REPORT => Aug 31, 2024 09:51 TECH CODE: [id number] Bacteriology Remark(s): NO GROWTH 08/30/2024 <10,000 CFU/ML. 08/31/2024 =--=--=--=--=--=--=--=--=--=-- =--=--=--=--=--=--=--=--=--=-- =--=--=--=--=--=-- Performing Laboratory: Bacteriology Report Performed By: [facility] [CLIA# [id number]] [address] [place] [address] MAGDY CALABRESE [facility]-D [facility] Encounter Notes: All associated encounter notes This section contains the clinical notes associated to the Encounter. Date/Time Encounter Note(s) Provider Source Sep 09, 2024 12:55 PM DISCHARGE PLAN: LOCAL TITLE: DISCHARGE PLAN-INTERDISCIPLINARY TEAM STANDARD TITLE: DISCHARGE PLAN DATE OF NOTE: SEP 09, 2024@12:55 ENTRY DATE: SEP 09, 2024@12:55:51 AUTHOR: SUMAYA GOEL COSIGNER: URGENCY: STATUS: COMPLETED Interdisciplinary Huddle completed [...] makes medical decisions on behalf of Patient? L[place]ian & spouse, Mental Health and Suicidality has been discussed in Team Huddle No Additional comments for Interdisciplinary Issues in Daily Care and Discharge Planning: [place] status update provided. Per clinical team, is medically stable for discharge to [facility] on this date. Med team scheduled ambulance for 1400. SW met with and Lothian's spouse at bedside to discuss SW/discharge planning needs. Lothian's spouse confirmed they are agreeable with discharge to [facility] on this date. Lothian's spouse completed EMS DNR/DNI form and this SW turned it into the [facility]. SW contacted Tori with [facility] who confirmed is able to admit on this date. SW updated med team, pharmacy, and bedside RN of discharge plan. SW faxed D/C Summary, med list, and discharge day progress note to the facility and provided bedside RN with the number for report. No further SW/Discharge planning needs identified at this time. SW will continue to follow as needed while is hospitalized. FINAL DISCHARGE PLAN: [facility] [id number] [phone] Time: 15 minutes Procedure: Case Management Diagnosis: Other problems related to medical facilities and other health care Person awaiting admission to facility elsewhere /rosette/ Sumaya Goel LCSW Acute Care Shuttle Fitting Supervisor Signed: 09/09/2024 13:02 SUMAYA GOEL-MALKA [facility]
--- OUTSIDE RECORDS SUMMARY | 2024-09-09 05:09 | XMS_ITS ---
Author Name [facility] [place] [facility] [place] [facility] [place] [facility] [place] Address [address] [place] [address] Care Team Providers Care Pan Operator Name Role Phone YULISSA HENDERSON Primary [...] PLAN F Mar 24, 2014 PLAN F [id number] [phone] LUIS MANUEL PREDOMO PATIENT [facility] [place] [facility] PREFERRED PROVIDER ORGANIZAT ION (PPO) [facility] Sep 21, 2012 [id number] LUIS MANUEL PERDOMO PATIENT [facility] ([id number]) PRESCRIPT ION WL3A Sep 21, 2012 [id number] LUIS MANUEL PERDOMO PATIENT MEDICARE (WNR) MEDICARE (M) PART B Sep 21, 2012 PART B [id number] NOEMI PERDOMO PATIENT MEDICARE (WNR) MEDICARE (M) PART A Jan 22, 2011 PART A [id number] NOEMI PERDOMO PATIENT MEDICARE PART D (WNR) MEDICARE (M) PART D Mar 24, 2014 PART D [id number] LUIS MANUEL PERDOMO PATIENT Selected Encounter This section includes the information on record at [place] for the Encounter. Date/Time Encounter Type Encounter Description Reason Provider Source Sep 09, 2024 09:09 AM HOSP IP/OBS DSCHRG MGMT 30/< GENERAL INTERNAL MEDICINE [facility]END[facility] UN IHE Encounter Template Text not used [...] 08:00 AM AMBULATORY - NONE [facility] [facility] Sep 30, 2024 01:30 PM AMBULATORY - SURGERY [place] [facility] Active, Pending, and Scheduled Orders This [...] Sep 13, 2024 01:33 PM Consult Order [facility] SKILLED HOME CARE Cons [facility] Lab Results: +/- [...] Specimen Type: CAPILLARY Comment: Test performed by: [id number] Meter #: [id number] Ordering Provider: FRANCK TURNER Report Released Date/Time: Sep 09, 2024 12:33 PM Reporting Lab: [address] [address] Performing Lab: [address] [address] GLUCOSE-HAND MONITOR 116 mg/dL H -Sep 09, 2024 06:07 AM [facility] GLUCOSE-HAND MONITOR CAPILLARY Specime n Type: CAPILLARY Comment: Test performed by: [id number] Meter #: [id number] Ordering Provider: FRANCK TURNER Report Released Date/Time: Sep 09, 2024 08:17 AM Reporting Lab: [address] [address] Performing Lab: [address] [address] GLUCOSE-HAND MONITOR 112 mg/dL H Sep 08, 2024 09:13 PM [facility] GLUCOSE-HAND MONITOR CAPILLARY Specime n Type: CAPILLARY Comment: Test performed by: [id number] Meter #: [id number] Ordering Provider: FRANCK TURNER Report Released Date/Time: Sep 08, 2024 09:31 PM Reporting Lab: [address] [address] Performing Lab: [address] [address] GLUCOSE-HAND MONITOR 107 mg/dL H Sep 08, 2024 03:49 PM [facility] GLUCOSE-HAND MONITOR CAPILLARY Specime n Type: CAPILLARY Comment: AMAIR RN notified Test performed by: [id number] Meter #: [id number] Ordering Provider: FRANCK TURNER Report Released Date/Time: Sep 08, 2024 04:33 PM Reporting Lab: [address] [address] Performing Lab: [address] [address] GLUCOSE-HAND MONITOR 162 mg/dL H Sep 08, 2024 11:43 AM [facility] GLUCOSE-HAND MONITOR CAPILLARY Specime n Type: CAPILLARY Comment: AAMIR RN notified Test performed by: [id number] Meter #: [id number] Ordering Provider: FRANCK TURNER Report Released Date/Time: Sep 08, 2024 12:03 PM Reporting Lab: [address] [address] Performing Lab: [address] [address] GLUCOSE-HAND MONITOR 133 mg/dL H Sep 08, 2024 06:13 AM [facility] GLUCOSE-HAND MONITOR CAPILLARY Specime n Type: CAPILLARY Comment: Test performed by: [id number] Meter #: [id number] Ordering Provider: FRANCK TURNER Report Released Date/Time: Sep 08, 2024 06:46 AM Reporting Lab: [place] [id number] Performing Lab: [place] [phone] GLUCOSE-HAND MONITOR 104 mg/dL H Sep 07, 2024 07:59 PM [facility] GLUCOSE-HAND MONITOR CAPILLARY Specime n Type: CAPILLARY Comment: Test performed by: [id number] Meter #: [id number] Ordering Provider: FRANCK TURNER Report Released Date/Time: Sep 07, 2024 09:05 PM Reporting Lab: [address] [address] Performing Lab: [address] [address] GLUCOSE-HAND MONITOR 107 mg/dL H Sep 07, 2024 04:39 PM [facility] GLUCOSE-HAND MONITOR CAPILLARY Specime n Type: CAPILLARY Comment: Test performed by: [id number] Meter #: [id number] Ordering Provider: FRANCK TURNER Report Released Date/Time: Sep 07, 2024 05:09 PM Reporting Lab: [address] [address] Performing Lab: [address] [address] GLUCOSE-HAND MONITOR 105 mg/dL H Sep 07, 2024 11:41 AM [facility] GLUCOSE-HAND MONITOR CAPILLARY Specime n Type: CAPILLARY Comment: Test performed by: [id number] Meter #: [id number] Ordering Provider: FRANCK TURNER Report Released Date/Time: Sep 07, 2024 12:41 PM Reporting Lab: [address] [address] Performing Lab: [address] [address] GLUCOSE-HAND MONITOR 144 mg/dL H Sep 07, 2024 05:56 AM [facility] GLUCOSE-HAND MONITOR CAPILLARY Specime n Type: CAPILLARY Comment: Test performed by: [id number] Meter #: [id number] Ordering Provider: FRANCK TURNER Report Released Date/Time: Sep 07, 2024 06:31 AM Reporting Lab: [place] [phone] Performing Lab: [place] [phone] GLUCOSE-HAND MONITOR 96 mg/dL Sep 06, 2024 08:10 PM [facility] GLUCOSE-HAND MONITOR CAPILLARY Specime n Type: CAPILLARY Comment: Test performed by: [id number] Meter #: [id number] Ordering Provider: FRANCK TURNER Report Released Date/Time: Sep 06, 2024 08:52 PM Reporting Lab: [address] [address] Performing Lab: [address] [address] GLUCOSE-HAND MONITOR 124 mg/dL H Sep 06, 2024 04:27 PM [facility] GLUCOSE-HAND MONITOR CAPILLARY Specime n Type: CAPILLARY Comment: Test performed by: [id number] Meter #: [id number] Ordering Provider: FRANCK TURNER Report Released Date/Time: Sep 06, 2024 05:15 PM Reporting Lab: [address] [address] Performing Lab: [address] [address] GLUCOSE-HAND MONITOR 107 mg/dL H Sep 06, 2024 12:12 PM [facility] GLUCOSE-HAND MONITOR CAPILLARY Specime n Type: CAPILLARY Comment: Test performed by: [id number] Meter #: [id number] Ordering Provider: FRANCK TURNER Report Released Date/Time: Sep 06, 2024 12:29 PM Reporting Lab: [address] [address] Performing Lab: [address] [address] GLUCOSE-HAND MONITOR 181 mg/dL H Sep 06, 2024 06:13 AM [facility] GLUCOSE-HAND MONITOR CAPILLARY Specime n Type: CAPILLARY Comment: Test performed by: [id number] Meter #: [id number] Ordering Provider: FRANCK TURNER Report Released Date/Time: Sep 06, 2024 06:36 AM Reporting Lab: [address] [address] Performing Lab: [address] [address] GLUCOSE-HAND MONITOR 102 mg/dL H Sep 05, 2024 08:47 PM [facility] GLUCOSE-HAND MONITOR CAPILLARY Specime n Type: CAPILLARY Comment: Test performed by: [id number] Meter #: [id number] Ordering Provider: FRANCK TURNER Report Released Date/Time: Sep 06, 2024 02:13 AM Reporting Lab: [address] [address] Performing Lab: [address] [address] GLUCOSE-HAND MONITOR 103 mg/dL H Sep 05, 2024 04:40 PM [facility] GLUCOSE-HAND MONITOR CAPILLARY Specime n Type: CAPILLARY Comment: AAMIR RN notified Test performed by: [id number] Meter #: [id number] Ordering Provider: FRANCK TURNER Report Released Date/Time: Sep 05, 2024 05:11 PM Reporting Lab: [address] [address] Performing Lab: [address] [address] GLUCOSE-HAND MONITOR 113 mg/dL H Sep 05, 2024 12:06 PM [facility] GLUCOSE-HAND MONITOR CAPILLARY Specime n Type: CAPILLARY Comment: Test performed by: [id number] Meter #: [id number] Ordering Provider: FRANCK TURNER Report Released Date/Time: Sep 05, 2024 12:23 PM Reporting Lab: [address] [address] Performing Lab: [address] [address] GLUCOSE-HAND MONITOR 115 mg/dL H -Sep 05, 2024 06:26 AM [facility] GLUCOSE-HAND MONITOR CAPILLARY Specime n Type: CAPILLARY Comment: AAMIR Correction Dose Test performed by: [id number] Meter #: [id number] Ordering Provider: FRANCK TURNER Report Released Date/Time: Sep 05, 2024 06:43 AM Reporting Lab: [address] [address] Performing Lab: [address] [address] GLUCOSE-HAND MONITOR 111 mg/dL H Sep 04, 2024 08:59 PM [facility] GLUCOSE-HAND MONITOR CAPILLARY Specime n Type: CAPILLARY Comment: AAMIR RN notified Test performed by: [id number] Meter #: [id number] Ordering Provider: FRANCK TURNER Report Released Date/Time: Sep 04, 2024 09:36 PM Reporting Lab: [address] [address] Performing Lab: [address] [address] GLUCOSE-HAND MONITOR 123 mg/dL H -Sep 04, 2024 04:41 PM [facility] GLUCOSE-HAND MONITOR CAPILLARY Specime n Type: CAPILLARY Comment: AAMIR RN notified Test performed by: [id number] Meter #: [id number] Ordering Provider: FRANCK TURNER Report Released Date/Time: Sep 04, 2024 05:03 PM Reporting Lab: [address] [address] Performing Lab: [address] [address] GLUCOSE-HAND MONITOR 118 mg/dL H 71-99 Sep 04, 2024 12:36 PM [facility] GLUCOSE-HAND MONITOR CAPILLARY Specime n Type: CAPILLARY Comment: AAMIR DEXTER notified Test performed by: [id number] Meter #: [id number] Ordering Provider: FRANCK TURNER Report Released Date/Time: Sep 04, 2024 12:53 PM Reporting Lab: [address] [address] Performing Lab: [place] [phone] GLUCOSE-HAND MONITOR 129 mg/dL H -99 Sep 04, 2024 12:03 PM [facility] RESPIRATORY VIRUS PANEL (BIOFIRE) NASOPHARYN X Specimen Type: NASOPHARYNX Comment: ~For Test: RESPIRATORY VIRUS PANEL (BIOFIRE) ~ORDER READ BACK TO: FRANCK TURNER 09/04/24@11:30 Ordering Provider: FRANCK TURNER Report Released Date/Time: Sep 04, 2024 11:33 AM Reporting Lab: [address] [address] Performing Lab: [address] [address] ADENOVIRUS (BIOFIRE) Not Detected -Not D etected [...] Detected Sep 04, 2024 06:55 AM [facility] MAGNESIUM PLASMA Specimen Type: PLASM [...] Sep 03, 2024 11:10 AM Reporting Lab: [facility] [address] [facility] [address] Performing Lab: [facility] [address] [facility] [address] MAGNESIUM 1.8 mg/dL 1.6-2.6 Sep 04, 2024 [...] Sep 03, 2024 11:10 AM Reporting Lab: [address] [address] Performing Lab: [address] [address] CREATININE 0.75 mg/dL 0.72-1.25 UREA NITROGEN 13 [...] n Type: CAPILLARY Comment: Test performed by: [id number] Meter #: [id number] Ordering Provider: FRANCK TURNER Report Released Date/Time: Sep 04, 2024 06:28 AM Reporting Lab: [address] [address] Performing Lab: [address] GLUCOSE-HAND MONITOR 114 mg/dL H 71-99 Sep 03, 2024 05:19 PM [facility] GLUCOSE-HAND MONITOR CAPILLARY Specime n Type: CAPILLARY Comment: Test performed by: [id number] Meter #: [id number] Ordering Provider: FRANCK TURNER Report Released Date/Time: Sep 03, 2024 05:37 PM Reporting Lab: [address] [address] Performing Lab: [address] [address] GLUCOSE-HAND MONITOR 124 mg/dL H 71-99 Sep 03, 2024 04:41 PM [facility] GLUCOSE-HAND MONITOR CAPILLARY Specime n Type: CAPILLARY Comment: Test performed by: [id number] Meter #: [id number] Ordering Provider: FRANCK TURNER Report Released Date/Time: Sep 03, 2024 06:09 PM Reporting Lab: [address] [address] Performing Lab: [facility] [address] [facility] [address] GLUCOSE-HAND MONITOR 112 mg/dL H 71-99 Sep 03, 2024 01:35 PM [facility] URINE LYTES URINE Specimen Type : URINE Comment: ~Altered mental status with no identifiable cause Ordering Provider: FRANCK TURNER Report Released Date/Time: Sep 02, 2024 04:44 PM Reporting Lab: [facility] [address] [facility] [address] Performing Lab: [facility] [address] [facility] [address] SODIUM 130 mmol/L POTASSIUM 47.6 mmol/L CHLORIDE 137 mmol/L Sep 03, 2024 01:35 PM [facility] CREATININE URINE Specimen Type: URINE Comment: ~Altered mental status with no identifiable cause Ordering Provider: FRANCK TURNER Report Released Date/Time: Sep 02, 2024 04:44 PM Reporting Lab: [facility] [address] [facility] [address] Performing Lab: [facility] [address] [place] [address] CREATININE 150.9 mg/dL Sep 03, 2024 01:35 PM [facility] OSMOLALITY URINE Specimen Type: URINE Comment: ~Altered mental status with no identifiable cause Ordering Provider: FRANCK TURNER Report Released Date/Time: Sep 02, 2024 04:44 PM Reporting Lab: [facility] [address] [facility] [address] Performing Lab: [facility] [address] [facility] [address] OSMOLALITY 522 mosm/kg 38-1400 Sep 03, 2024 01:35 PM [facility] UREA NITROGEN URINE Specimen Type : URINE Comment: ~Altered mental status with no identifiable cause Ordering Provider: FRANCK TURNER Report Released Date/Time: Sep 02, 2024 04:44 PM Reporting Lab: [facility] [address] [facility] [address] Performing Lab: [facility] [address] [facility] [address] UREA NITROGEN 320 mg/dL Sep 03, 2024 01:35 PM [facility] URINALYSIS WITH REFLEX TO CULTURE URINE Specimen Type: URINE Comment: ~Altered mental status with no identifiable cause Ordering Provider: FRANCK TURNER Report Released Date/Time: Sep 02, 2024 04:44 PM Reporting Lab: [address] [address] Performing Lab: [address] [address] URINE COLOR Yellow Colorless-Yellow APPEARANCE CLOUDY H [...] Comment: AAMIR RN notified Test performed by: [id number] Meter #: [id number] Ordering Provider: FRANCK TURNER Report Released Date/Time: Sep 03, 2024 12:15 PM Reporting Lab: [address] [address] Performing Lab: [address] [address] GLUCOSE-HAND MONITOR 135 mg/dL H 71-99 Sep 03, 2024 07:09 AM [facility] GLUCOSE-HAND MONITOR CAPILLARY Specime n Type: CAPILLARY Comment: Test performed by: [id number] Meter #: [id number] Ordering Provider: FRANCK TURNER Report Released Date/Time: Sep 03, 2024 07:26 AM Reporting Lab: [address] [address] Performing Lab: [address] [place] [address] GLUCOSE-HAND MONITOR 120 mg/dL H 71-99 Sep 03, 2024 07:05 AM [facility] [...] 02, 2024 04:29 PM Reporting Lab: [address] [address] Performing Lab: [address] [address] CREATININE 0.82 mg/dL 0.72-1.25 UREA NITROGEN 12 [...] 02, 2024 04:29 PM Reporting Lab: [address] [address] Performing Lab: [address] [address] WBC 6.9 10*3/uL 5.0-10.0 RBC 3.48 10*6/uL [...] 02, 2024 04:29 PM Reporting Lab: [address] [address] Performing Lab: [address] [address] MAGNESIUM 1.7 mg/dL 1.6-2.6 Sep 03, 2024 07:05 AM [facility] GLYCOHEMOGLOBIN BLOOD Specimen Type: BLOOD Comment: Prediabetes: 5.7%-6.4% Diabetes: >= 6.5% [facility] guidelines for A1c interpretation: Glycemic control [...] 8.73 and 9.27. Ref: https://ngsp.org/CAPdata.asp. The in-house [email or web address]-OSIX D-100 analyzer has a historical CV <= 2%. Contact the laboratory for further performance characteristics of this assay. Ordering Provider: FRANCK TURNER Report Released Date/Time: Sep 02, 2024 04:29 PM Reporting Lab: [address] [address] Performing Lab: [address] [address] GLYCOHEMOGLOBIN 5.6 4.4-5.6 Sep 03, 2024 07:05 AM [facility] OSMOLALITY SERUM Specimen Type: SERUM No comment entered. Ordering Provider: FRANCK TURNER Report Released Date/Time: Sep 02, 2024 04:44 PM Reporting Lab: [address] [address] Performing Lab: [address] [address] OSMOLALITY 271 mosm/kg L 280-300 Sep 02, 2024 08:15 PM [facility] GLUCOSE-HAND MONITOR CAPILLARY Specime n Type: CAPILLARY Comment: AAMIR RN notified Test performed by: [id number] Meter #: [id number] Ordering Provider: FRANCK TURNER Report Released Date/Time: Sep 02, 2024 08:57 PM Reporting Lab: [address] [address] Performing Lab: [address] [address] GLUCOSE-HAND MONITOR 126 mg/dL H 71-99 Sep [...] 02, 2024 05:12 PM Reporting Lab: [address] [address] Performing Lab: [address] [address] MRSA SURVL NARES DNA Negative Negative Sep 02, 2024 05:36 PM [facility] GLUCOSE-HAND MONITOR CAPILLARY Specime n Type: CAPILLARY Comment: Test performed by: [id number] Meter #: [id number] Ordering Provider: FRANCK TURNER Report Released Date/Time: Sep 02, 2024 05:53 PM Reporting Lab: [address] [address] Performing Lab: [address] [address] GLUCOSE-HAND MONITOR 127 mg/dL H 71-99 Aug 29, 2024 10:04 PM [facility] URINALYSIS WITH REFLEX TO CULTURE URINE Specimen Type: URINE Comment: ~For Test: URINALYSIS WITH REFLEX TO CULTURE ~REORDER Ordering Provider: FELISA COLE Report Released Date/Time: Aug 29, 2024 09:36 PM Reporting Lab: [address] [address] Performing Lab: [address] [address] URINE COLOR Yellow Colorless-Yellow APPEARANCE Clear Clear [...] /[LPF] 0-28 Aug 29, 2024 08:32 PM [facility] HIGH SENSITIVITY TROPONIN I PLASMA [...] I information resource can be reached in [facility] in the Tools menu, under the Education [...] 29, 2024 07:55 PM Reporting Lab: [address] [address] Performing Lab: [address] [address] HIGH SENSITIVITY TROPONIN I 7 4-35 Aug 29, 2024 08:32 PM [facility] CBC/PLT BLOOD Specimen Type: BLOOD No comment entered. Ordering Provider: FELISA COLE Report Released Date/Time: Aug 29, 2024 07:55 PM Reporting Lab: [address] [address] Performing Lab: [address] [address] WBC 11.2 10*3/uL H 5.0-10.0 RBC 3.97 10*6/uL L 4.6-6.2 HGB 10.9 g/dL L 14.0-18.0 HCT 33.5 L 42.0-52.0 MCV 84.4 fL 80.0-94.0 MCH 27.5 pg 27.0-31.0 MCHC 32.5 g/dL 32.0-36.0 PLT 230 10*3/uL 150-450 MPV 10.2 fL 9.0-13.1 RDW 14.6 11.0-16.0 NRBC 0.0 0.0-0.0 Aug 29, 2024 08:32 PM [facility] PANEL 5 [...] 29, 2024 07:55 PM Reporting Lab: [address] [address] Performing Lab: [address] [address] CREATININE 0.85 mg/dL 0.72-1.25 UREA NITROGEN 15 [...] /min 167/78 mm[Hg] 16 /min 95 % [facility] Sep 09, 2024 08:09 AM 97.7 F 77 /min 117/68 mm[Hg] 18 /min 91 % 6 [place] Sep 09, 2024 04:40 AM 213.6 lb 32 [place] Sep 09, 2024 04:11 AM 97.7 F 70 /min 168/79 mm[Hg] 20 /min 93 % 0 [place] Advance Directives: All historical and [...] BRAIN W & W/O: LUIS MANUEL PERDOMO [id number] -1945 M Exm Date: SEP 06, 2024@13:40 Req Phys: FRANCK TURNER Pat Loc: 5-MED/TEL/09-06-2024@19:09 Img Loc: [facility] Service: [place] [address] (Case [id number] COMPLETE) MRI BRAIN W & W/O (MRI Detailed) CPT:92667 Contrast Media : Gadolinium Reason for Study: SEE CLINICAL HISTORY Pharmaceutical: GADOTERIDOL 279.3MG/ML 20ML INJ, 19ml Clinical History: MRI Screening (Required): IMPLANTED DEVICE DOCUMENTATION IMPLANTED DEVICE DOCUMENTATION NOT FOUND Does the [place] have any Cardiac Implants? None Does the [...] 06, 2024 Date Verified: SEP 06, 2024 Package Sealer E-Sig: Report: MRI brain without and with [...] Staff: ARCENIO LEYVA, Staff Radiologist Verified by pan operator for ARCENIO LEYVA /ARCENIO AVILA-CDD [facility] Sep 06, 2024 01:40 PM MRI C SPINE W & W/ O CONTRAST(FURTHER SEQUENCES): LUIS MANUEL PERDOMO [id number] -1945 M Exm Date: SEP 06, 2024@13:40 Req Phys: JOHNNYFRANCK SYDNEY Pat Loc: 5-MED/TEL/09-07-2024@06:42 Img Loc: [facility] Service: [place] [address] (Case [id number] COMPLETE) MRI C SPINE W & W/O CONTRAST(FURT(MRI Detailed) CPT:91621 Contrast Media : Gadolinium Reason for Study: SEE CLINICAL HISTORY Pharmaceutical: GADOTERIDOL 279.3MG/ML 20ML INJ, 19ml Clinical History: STATUS OF PLAIN FILMS:Not performed (Provide justification for MR W/O prior plain films below.) MRI for MS MRI Screening (Required): IMPLANTED DEVICE DOCUMENTATION IMPLANTED DEVICE DOCUMENTATION NOT FOUND Does the have any Cardiac Implants? None Does the [place] have any implanted stimulators? None Does the have cochlear implants? No Does the have Cerebral aneurysm clip(s)? I don't know Does the have any shrapnel? I don't know If yes, where in your body? Please list other implants not listed above: MRI table has a weight limit of 551 lbs. [place]'s Weight: *212 lb [96.16 kg] (09/04/2024 05:19) Is this patient claustrophobic?: No REASON FOR EXAM: MULTIPLE SCLEROSIS (indicate suspected or established) PERTINENT PATIENT HISTORY: MS c/f flare Risk factors for GADOLINIUM NEPHROGENIC SYSTEMIC SCLEROSIS: Report Status: Verified Date Reported: SEP 07, 2024 Date Verified: SEP 07, 2024 Package Sealer E-Sig: Report: EXAMINATION: MRI OF THE CERVICAL [...] Interpreting Staff: HUANG TAI, Radiologist Verified by pan operator for HUANG TAI /HUANG WHEATLEY-Sav [facility] Sep 03, 2024 10:45 AM CHEST SINGLE(1) EW: LUIS MANUEL PERDOMO FABIAN [id number] -1945 M Exm Date: SEP 03, 2024@10:45 Req Phys: FRANCK TURNER Pat Loc: 5-MED/TEL/09-03-2024@10:56 Img Loc: [facility]Y Service: [place] [address] (Case [id number] COMPLETE)CHEST SINGLE(1) VIEW (RAD Detailed) CPT:13333 Proc Modifiers : PORTABLE EXAM Reason for Study: Eval volume status Clinical History: Report Status: Verified Date Reported: SEP 03, 2024 Date Verified: SEP 03, 2024 Package Sealer E-Sig: Report: EXAMINATION: SINGLE VIEW CHEST CLINICAL [...] Interpreting Staff: HUANG TAI, Radiologist Verified by pan operator for HUANG TAI /HUANG WHEATLEY-CDD [facility] Aug 29, 2024 08:[address] HEAD W/O CONT: LUIS MANUEL PERDOMO [id number] -1945 M Exm Date: AUG 29, 2024@20:28 Req Phys: FELISA COLE Loc: ED/4P-12A (Req'g Loc) Img Loc: CT SCAN Service: [place] [address] (Case [id number] COMPLETE) CT HEAD W/O CONT (CT Detailed) CPT:42515 Reason for Study: SEE CLINICAL HISTORY Clinical History: REASON FOR SEND OUT: ATTENDING PHYSICIAN NAME: New transient neurological s/s - suspected TIA HISTORY/REASON FOR EXAM: confusion Report Status: Verified Date Reported: AUG 29, 2024 Date Verified: AUG 29, 2024 Package Sealer E-Sig: Report: HISTORY confusion COMPARISON No prior [...] Staff: ABDIRAHMAN CROW, Staff Physician Verified by pan operator for ABDIRAHMAN CROW /ABDIRAHMAN ROJAS-D [facility] Pathology Reports: +/- 30 days [...] Reporting Lab: [facility] [CLIA# [id number]] [address] [place] [id number] Accession [UID]: [id number] [[id number]] Received: Sep 03, 2024@14:02 Collection sample: URINE, [...] Performed By: [facility] [CLIA# [id number]] [address] [place] [address] MAGDY CALABRESE [facility] Sep 02, 2024 06:00 PM LR MICROBIOLOGY RE PORT: Reporting Lab: [facility] [CLIA# [id number]] [address] [place], [place] [id number] Accession [UID]: [id number] [[id number]] Received: Sep 02, 2024@18:07 Collection sample: BLD CULTURE BOTTLES Collection date: Sep 02, 2024 18:00 Site/Specimen: BLOOD Provider: FRANCK TURNER Comment on specimen: L HAND Test(s) ordered: CULTURE, BLOOD................ completed: Sep 08, 2024 * BACTERIOLOGY FINAL REPORT => Sep 08, 2024 08:25 TECH CODE: [id number] Bacteriology Remark(s): Blood culture status=NO GROWTH (unless notified otherwise) 09/03/2024 AEROBIC: NO GROWTH ANAEROBIC: NO GROWTH =--=--=--=--=--=--=--=--=--=-- =--=--=--=--=--=--=--=--=--=-- =--=--=--=--=--=-- Performing Laboratory: Bacteriology Report Performed By: [facility] [CLIA# [id number]] [address] [place] [address] MAGDY CALABRESE [facility] Aug 29, 2024 10:18 PM LR MICROBIOLOGY RE PORT: Reporting Lab: [facility] [CLIA# [id number]] [address] [place], [place] [id number] Accession [UID]: [id number] [[id number]] Received: Aug 29, 2024@22:18 Collection sample: URINE, CLEAN CATCH Collection date: Aug 29, 2024 22:18 Site/Specimen: URINE Provider: FELISA COLE Test(s) ordered: CULTURE, URINE................ completed: Aug 31, 2024 09:51 * BACTERIOLOGY FINAL REPORT => Aug 31, 2024 09:51 TECH CODE: [id number] Bacteriology Remark(s): NO GROWTH 08/30/2024 <10,000 CFU/ML. 08/31/2024 =--=--=--=--=--=--=--=--=--=-- =--=--=--=--=--=--=--=--=--=-- =--=--=--=--=--=-- Performing Laboratory: Bacteriology Report Performed By: [facility] [CLIA# [id number]] [address] [place] [address] [facility]
--- OUTSIDE RECORDS SUMMARY | 2024-09-09 05:09 | XMS_ITS ---
[place] DAILY HOSPITALIZATION DATA [facility] Encounter Summary Created on: September 22, 2024 LUIS MANUEL PERDOMO : 1945 Sex: Male Author Name [facility] Organization [facility] Address [address] [place] [address] Care Team Providers Care Tag Meter Operator Name Role Phone YULISSA HENDERSON Primary [...] PLAN F Mar 24, 2014 PLAN F [id number] [phone] LUIS MANUEL PERDOMO PATIENT [facility] [place] [facility] PREFERRED PROVIDER ORGANIZAT ION (PPO) [facility] Sep 21, 2012 [id number] [phone] LUIS MANUEL PERDOMO PATIENT [employer] ([id number]) PRESCRIPT ION WL3A Sep 21, 2012 [id number] [phone] LUIS MANUEL PERDOMO PATIENT MEDICARE (WNR) MEDICARE (M) PART B Sep 21, 2012 PART B [id number] NOEMI PERDOMO PATIENT MEDICARE (WNR) MEDICARE (M) PART A Jan 22, 2011 PART A [id number] LEANNE, NOEMI PATIENT MEDICARE PART D (WNR) MEDICARE (M) PART D Mar 24, 2014 PART D [id number] LUIS MANUEL PERDOMO PATIENT Selected Encounter This section includes the information on record at [place] for the Encounter. Date/Time Encounter Type Encounter Description Reason Pro vider Source Sep 09, 2024 09:09 AM Inpatient Visit DAILY HOSPITALIZATION DATA [facility] Encounter Template Text not used by [place] Plan of Treatment: Future Appointments (+ 6 months) and Future Tests (+/- 45 days) The Plan of Treatment section includes future care activities for the patient from all [place] [facility]. This section includes future appointments and [...] 13, 2024 08:00 AM [facility] Sep 30, 2024 01:30 PM [facility] - [facility] Active, Pending, and Scheduled [...] theEncounter. The data comes from all [facility] facilities. Test Date/Time Test Type Test Details Facility Name Sep 13, 2024 01:33 PM Consult Order [facility] SKILL[facility] CARE Cons Target Aircraft Technician's Choice [facility] Lab Results: +/- [...] Specimen Type: CAPILLARY Comment: Test performed by: [id number] Meter #: [id number] Ordering Provider: FRANCK TURNER Report Released Date/Time: Sep 09, 2024 12:33 PM Reporting Lab: [address] [address] Performing Lab: [address] [address] GLUCOSE-HAND MONITOR 116 mg/dL H Sep 09, 2024 06:07 AM [facility] GLUCOSE-HAND MONITOR CAPILLARY Specime n Type: CAPILLARY Comment: Test performed by: [id number] Meter #: [id number] Ordering Provider: FRANCK TURNER Report Released Date/Time: Sep 09, 2024 08:17 AM Reporting Lab: [address] [address] Performing Lab: [address] [address] GLUCOSE-HAND MONITOR 112 mg/dL H Sep 08, 2024 09:13 PM [facility] GLUCOSE-HAND MONITOR CAPILLARY Specime n Type: CAPILLARY Comment: Test performed by: [id number] Meter #: [id number] Ordering Provider: FRANCK TURNER Report Released Date/Time: Sep 08, 2024 09:31 PM Reporting Lab: [address] [address] Performing Lab: [address] [address] GLUCOSE-HAND MONITOR 107 mg/dL H Sep 08, 2024 03:49 PM [facility] GLUCOSE-HAND MONITOR CAPILLARY Specime n Type: CAPILLARY Comment: AAMIR RN notified Test performed by: [id number] Meter #: [id number] Ordering Provider: FRANCK TURNER Report Released Date/Time: Sep 08, 2024 04:33 PM Reporting Lab: [address] [address] Performing Lab: [address] [address] GLUCOSE-HAND MONITOR 162 mg/dL H Sep 08, 2024 11:43 AM [facility] GLUCOSE-HAND MONITOR CAPILLARY Specime n Type: CAPILLARY Comment: AAMIR RN notified Test performed by: [id number] Meter #: [id number] Ordering Provider: FRANCK TURNER Report Released Date/Time: Sep 08, 2024 12:03 PM Reporting Lab: [address] [address] Performing Lab: [address] [address] GLUCOSE-HAND MONITOR 133 mg/dL H Sep 08, 2024 06:13 AM [facility] GLUCOSE-HAND MONITOR CAPILLARY Specime n Type: CAPILLARY Comment: Test performed by: [id number] Meter #: [id number] Ordering Provider: FRANCK TURNER Report Released Date/Time: Sep 08, 2024 06:46 AM Reporting Lab: [address] [address] Performing Lab: [address] [address] GLUCOSE-HAND MONITOR 104 mg/dL H Sep 07, 2024 07:59 PM [facility] GLUCOSE-HAND MONITOR CAPILLARY Specime n Type: CAPILLARY Comment: Test performed by: [id number] Meter #: [id number] Ordering Provider: FRANCK TURNER Report Released Date/Time: Sep 07, 2024 09:05 PM Reporting Lab: [address] [address] Performing Lab: [address] [address] GLUCOSE-HAND MONITOR 107 mg/dL H Sep 07, 2024 04:39 PM [facility] GLUCOSE-HAND MONITOR CAPILLARY Specime n Type: CAPILLARY Comment: Test performed by: [id number] Meter #: [id number] Ordering Provider: FRANCK TURNER Report Released Date/Time: Sep 07, 2024 05:09 PM Reporting Lab: [address] [address] Performing Lab: [address] [address] GLUCOSE-HAND MONITOR 105 mg/dL H Sep 07, 2024 11:41 AM [facility] GLUCOSE-HAND MONITOR CAPILLARY Specime n Type: CAPILLARY Comment: Test performed by: [id number] Meter #: [id number] Ordering Provider: FRANCK TURNER Report Released Date/Time: Sep 07, 2024 12:41 PM Reporting Lab: [address] [address] Performing Lab: [address] [address] GLUCOSE-HAND MONITOR 144 mg/dL H Sep 07, 2024 05:56 AM [facility] GLUCOSE-HAND MONITOR CAPILLARY Specime n Type: CAPILLARY Comment: Test performed by: [id number] Meter #: [id number] Ordering Provider: FRANCK TURNER Report Released Date/Time: Sep 07, 2024 06:31 AM Reporting Lab: [address] [address] Performing Lab: [address] [address] GLUCOSE-HAND MONITOR 96 mg/dL Sep 06, 2024 08:10 PM [facility] GLUCOSE-HAND MONITOR CAPILLARY Specime n Type: CAPILLARY Comment: Test performed by: [id number] Meter #: [id number] Ordering Provider: FRANCK TURNER Report Released Date/Time: Sep 06, 2024 08:52 PM Reporting Lab: [address] [address] Performing Lab: [address] [address] GLUCOSE-HAND MONITOR 124 mg/dL H Sep 06, 2024 04:27 PM [facility] GLUCOSE-HAND MONITOR CAPILLARY Specime n Type: CAPILLARY Comment: Test performed by: [id number] Meter #: [id number] Ordering Provider: FRANCK TURNER Report Released Date/Time: Sep 06, 2024 05:15 PM Reporting Lab: [address] [address] Performing Lab: [address] [address] GLUCOSE-HAND MONITOR 107 mg/dL H Sep 06, 2024 12:12 PM [facility] GLUCOSE-HAND MONITOR CAPILLARY Specime n Type: CAPILLARY Comment: Test performed by: [id number] Meter #: [id number] Ordering Provider: FRANCK TURNER Report Released Date/Time: Sep 06, 2024 12:29 PM Reporting Lab: [address] [address] Performing Lab: [address] [address] GLUCOSE-HAND MONITOR 181 mg/dL H -Sep 06, 2024 06:13 AM [facility] GLUCOSE-HAND MONITOR CAPILLARY Specime n Type: CAPILLARY Comment: Test performed by: [id number] Meter #: [id number] Ordering Provider: FRANCK TURNER Report Released Date/Time: Sep 06, 2024 06:36 AM Reporting Lab: [address] [address] Performing Lab: [address] [address] GLUCOSE-HAND MONITOR 102 mg/dL H Sep 05, 2024 08:47 PM [facility] GLUCOSE-HAND MONITOR CAPILLARY Specime n Type: CAPILLARY Comment: Test performed by: [id number] Meter #: [id number] Ordering Provider: FRANCK TURNER Report Released Date/Time: Sep 06, 2024 02:13 AM Reporting Lab: [address] [address] Performing Lab: [address] [address] GLUCOSE-HAND MONITOR 103 mg/dL H Sep 05, 2024 04:40 PM [facility] GLUCOSE-HAND MONITOR CAPILLARY Specime n Type: CAPILLARY Comment: AAMIR RN notified Test performed by: [id number] Meter #: [id number] Ordering Provider: FRANCK TURNER Report Released Date/Time: Sep 05, 2024 05:11 PM Reporting Lab: [address] [address] Performing Lab: [address] [address] GLUCOSE-HAND MONITOR 113 mg/dL H Sep 05, 2024 12:06 PM [facility] GLUCOSE-HAND MONITOR CAPILLARY Specime n Type: CAPILLARY Comment: Test performed by: [id number] Meter #: [id number] Ordering Provider: FRANCK TURNER Report Released Date/Time: Sep 05, 2024 12:23 PM Reporting Lab: [address] [address] Performing Lab: [address] [address] GLUCOSE-HAND MONITOR 115 mg/dL H Sep 05, 2024 06:26 AM [facility] GLUCOSE-HAND MONITOR CAPILLARY Specime n Type: CAPILLARY Comment: AAMIR Correction Dose Test performed by: [id number] Meter #: [id number] Ordering Provider: FRANCK TURNER Report Released Date/Time: Sep 05, 2024 06:43 AM Reporting Lab: [address] [address] Performing Lab: [address] [address] GLUCOSE-HAND MONITOR 111 mg/dL H Sep 04, 2024 08:59 PM [facility] GLUCOSE-HAND MONITOR CAPILLARY Specime n Type: CAPILLARY Comment: AAMIR RN notified Test performed by: [id number] Meter #: [id number] Ordering Provider: FRANCK TURENR Report Released Date/Time: Sep 04, 2024 09:36 PM Reporting Lab: [address] [address] Performing Lab: [address] [address] GLUCOSE-HAND MONITOR 123 mg/dL H Sep 04, 2024 04:41 PM [facility] GLUCOSE-HAND MONITOR CAPILLARY Specime n Type: CAPILLARY Comment: AAMIR RN notified Test performed by: [id number] Meter #: [id number] Ordering Provider: FRANCK TURNER Report Released Date/Time: Sep 04, 2024 05:03 PM Reporting Lab: [address] [address] Performing Lab: [address] [address] GLUCOSE-HAND MONITOR 118 mg/dL H Sep 04, 2024 12:36 PM [facility] GLUCOSE-HAND MONITOR CAPILLARY Specime n Type: CAPILLARY Comment: AAMIR RN notified Test performed by: [id number] Meter #: [id number] Ordering Provider: FRANCK TURNER Report Released Date/Time: Sep 04, 2024 12:53 PM Reporting Lab: [address] [address] Performing Lab: [place] [address] GLUCOSE-HAND MONITOR 129 mg/dL H 71-99 Sep 04, 2024 12:03 PM [facility] RESPIRATORY VIRUS PANEL (BIOFIRE) NASOPHARYN X Specimen Type: NASOPHARYNX Comment: ~For Test: RESPIRATORY VIRUS PANEL (BIOFIRE) ~ORDER READ BACK TO: FRANCK TURNER 09/04/24@11:30 Ordering Provider: FRANCK TURNER Report Released Date/Time: Sep 04, 2024 11:33 AM Reporting Lab: [place] [address] Performing Lab: [place] [address] ADENOVIRUS (BIOFIRE) Not Detected -Not D etected [...] 03, 2024 11:10 AM Reporting Lab: [facility] [address] [facility] [address] Performing Lab: [place] [address] [facility] [address] MAGNESIUM 1.8 mg/dL 1.6-2.6 Sep 04, 2024 [...] Sep 03, 2024 11:10 AM Reporting Lab: [address] [address] Performing Lab: [address] CREATININE 0.75 mg/dL 0.72-1.25 UREA NITROGEN [...] n Type: CAPILLARY Comment: Test performed by: [id number] Meter #: [id number] Ordering Provider: FRANCK TURNER Report Released Date/Time: Sep 04, 2024 06:28 AM Reporting Lab: [address] Performing Lab: [address] GLUCOSE-HAND MONITOR 114 mg/dL H 71-99 Sep 03, 2024 05:19 PM [facility] GLUCOSE-HAND MONITOR CAPILLARY Specime n Type: CAPILLARY Comment: Test performed by: [id number] Meter #: [id number] Ordering Provider: FRANCK TURNER Report Released Date/Time: Sep 03, 2024 05:37 PM Reporting Lab: [address] Performing Lab: [address] [address] GLUCOSE-HAND MONITOR 124 mg/dL H 71-99 Sep 03, 2024 04:41 PM [facility] GLUCOSE-HAND MONITOR CAPILLARY Specime n Type: CAPILLARY Comment: Test performed by: [id number] Meter #: [id number] Ordering Provider: FRANCK TURNER Report Released Date/Time: Sep 03, 2024 06:09 PM Reporting Lab: [address] [address] Performing Lab: [address] [address] GLUCOSE-HAND MONITOR 112 mg/dL H 71-99 Sep 03, 2024 01:35 PM [facility] URINE LYTES URINE Specimen Type : URINE Comment: ~Altered mental status with no identifiable cause Ordering Provider: FRANCK TURNER Report Released Date/Time: Sep 02, 2024 04:44 PM Reporting Lab: [address] [address] Performing Lab: [address] [address] SODIUM 130 mmol/L POTASSIUM 47.6 mmol/L CHLORIDE 137 mmol/L Sep 03, 2024 01:35 PM [facility] CREATININE URINE Specimen Type: URINE Comment: ~Altered mental status with no identifiable cause Ordering Provider: FRANCK TURNER Report Released Date/Time: Sep 02, 2024 04:44 PM Reporting Lab: [address] [address] Performing Lab: [address] [address] CREATININE 150.9 mg/dL Sep 03, 2024 01:35 PM [facility] OSMOLALITY URINE Specimen Type: URINE Comment: ~Altered mental status with no identifiable cause Ordering Provider: FRANCK TURNER Report Released Date/Time: Sep 02, 2024 04:44 PM Reporting Lab: [address] [address] Performing Lab: [address] [address] OSMOLALITY 522 mosm/kg 38-1400 Sep 03, 2024 01:35 PM [facility] UREA NITROGEN URINE Specimen Type : URINE Comment: ~Altered mental status with no identifiable cause Ordering Provider: FRANCK TURNER Report Released Date/Time: Sep 02, 2024 04:44 PM Reporting Lab: [address] [address] Performing Lab: [address] [address] UREA NITROGEN 320 mg/dL Sep 03, 2024 01:35 PM [facility] URINALYSIS WITH REFLEX TO CULTURE URINE Specimen Type: URINE Comment: ~Altered mental status with no identifiable cause Ordering Provider: FRANCK TURNER Report Released Date/Time: Sep 02, 2024 04:44 PM Reporting Lab: [address] [address] Performing Lab: [address] [address] URINE COLOR Yellow Colorless-Yellow APPEARANCE CLOUDY H [...] Comment: AAMIR RN notified Test performed by: [id number] Meter #: [id number] Ordering Provider: FRANCK TURNER Report Released Date/Time: Sep 03, 2024 12:15 PM Reporting Lab: [address] [address] Performing Lab: [address] [address] GLUCOSE-HAND MONITOR 135 mg/dL H Sep 03, 2024 07:09 AM [facility] GLUCOSE-HAND MONITOR CAPILLARY Specime n Type: CAPILLARY Comment: Test performed by: [id number] Meter #: [id number] Ordering Provider: FRANCK TURNER Report Released Date/Time: Sep 03, 2024 07:26 AM Reporting Lab: [address] [address] Performing Lab: [address] [address] GLUCOSE-HAND MONITOR 120 mg/dL H -Sep 03, [...] 02, 2024 04:29 PM Reporting Lab: [address] [address] Performing Lab: [address] [address] CREATININE 0.82 mg/dL 0.72-1.25 UREA NITROGEN 12 [...] 02, 2024 04:29 PM Reporting Lab: [address] [address] Performing Lab: [address] [address] WBC 6.9 10*3/uL 5.0-10.0 RBC 3.48 10*6/uL [...] 02, 2024 04:29 PM Reporting Lab: [address] [address] Performing Lab: [address] [address] MAGNESIUM 1.7 mg/dL 1.6-2.6 Sep 03, 2024 07:05 AM [facility] GLYCOHEMOGLOBIN BLOOD Specimen Type: BLOOD Comment: Prediabetes: 5.7%-6.4% Diabetes: >= 6.5% [place] guidelines for A1c interpretation: Glycemic control targets [...] 8.73 and 9.27. Ref: https://ngsp.org/CAPdata.asp. The in-house Cura TV-Pocket Change Card D-100 analyzer has a historical CV <= 2%. Contact the laboratory for further performance characteristics of this assay. Ordering Provider: FRANCK TURNER Report Released Date/Time: Sep 02, 2024 04:29 PM Reporting Lab: [address] [address] Performing Lab: [place] [address] GLYCOHEMOGLOBIN 5.6 4.4-5.6 Sep 03, 2024 07:05 AM [facility] OSMOLALITY SERUM Specimen Type: SERUM No comment entered. Ordering Provider: FRANCK TURNER Report Released Date/Time: Sep 02, 2024 04:44 PM Reporting Lab: [address] [address] Performing Lab: [address] [address] OSMOLALITY 271 mosm/kg L 280-300 Sep 02, 2024 08:15 PM [facility] GLUCOSE-HAND MONITOR CAPILLARY Specime n Type: CAPILLARY Comment: AAMIR DEXTER notified Test performed by: [id number] Meter #: [id number] Ordering Provider: FRANCK TURNER Report Released Date/Time: Sep 02, 2024 08:57 PM Reporting Lab: [address] [address] Performing Lab: [address] [address] GLUCOSE-HAND MONITOR 126 mg/dL H 71-99 Sep [...] 02, 2024 05:12 PM Reporting Lab: [address] [address] Performing Lab: [address] [address] MRSA SURVL NARES DNA Negative Negative Sep 02, 2024 05:36 PM [facility] GLUCOSE-HAND MONITOR CAPILLARY Specime n Type: CAPILLARY Comment: Test performed by: [id number] Meter #: [id number] Ordering Provider: FRANCK TURNER Report Released Date/Time: Sep 02, 2024 05:53 PM Reporting Lab: [address] [address] Performing Lab: [address] [address] GLUCOSE-HAND MONITOR 127 mg/dL H 71-99 Aug 29, 2024 10:04 PM [facility] URINALYSIS WITH REFLEX TO CULTURE URINE Specimen Type: URINE Comment: ~For Test: URINALYSIS WITH REFLEX TO CULTURE ~REORDER Ordering Provider: FELISA COLE Report Released Date/Time: Aug 29, 2024 09:36 PM Reporting Lab: [address] [address] Performing Lab: [address] [address] URINE COLOR Yellow Colorless-Yellow APPEARANCE Clear Clear [...] /[LPF] 0-28 Aug 29, 2024 08:32 PM [facility] HIGH SENSITIVITY TROPONIN I PLASMA Specimen Ty [...] 29, 2024 07:55 PM Reporting Lab: [address] [address] Performing Lab: [address] [address] HIGH SENSITIVITY TROPONIN I 7 4-35 Aug 29, 2024 08:32 PM [facility] CBC/PLT BLOOD Specimen Type: BLOOD No comment entered. Ordering Provider: FELISA COLE Report Released Date/Time: Aug 29, 2024 07:55 PM Reporting Lab: [address] [address] Performing Lab: [address] [address] WBC 11.2 10*3/uL H 5.0-10.0 RBC 3.97 10*6/uL L 4.6-6.2 HGB 10.9 g/dL L 14.0-18.0 HCT 33.5 L 42.0-52.0 MCV 84.4 fL 80.0-94.0 MCH 27.5 pg 27.0-31.0 MCHC 32.5 g/dL 32.0-36.0 PLT 230 10*3/uL 150-450 MPV 10.2 fL 9.0-13.1 RDW 14.6 11.0-16.0 NRBC 0.0 0.0-0.0 Aug 29, 2024 08:32 PM [facility] PANEL 5 PLASMA Specimen Type: PLASM A [...] 29, 2024 07:55 PM Reporting Lab: [address] [address] Performing Lab: [address] [address] CREATININE 0.85 mg/dL 0.72-1.25 UREA NITROGEN 15 [...] mm[Hg] 16 /min 95 % [facility] Sep 09, 2024 08:09 AM 97.7 F 77 /min 117/68 mm[Hg] 18 /min 91 % 6 [facility] Sep 09, 2024 04:40 AM 213.6 lb 32 [facility] Sep 09, 2024 04:11 AM 97.7 F 70 /min 168/79 mm[Hg] 20 /min 93 % 0 [facility] [facility] Advance Directives: All historical and current [...] 08, 2024 ADVANCE DIRECTIVE DISCUSSION [facility] Radiology Reports: +/- 30 days [...] BRAIN W & W/O: LUIS MANUEL PERDOMO [id number] -1945 M Exm Date: SEP 06, 2024@13:40 Req Phys: FRANCK TURNER Loc: 5-MED/TEL/09-06-2024@19:09 Img Loc: [facility] Service: [place] [address] (Case [id number] COMPLETE) MRI BRAIN W & W/O (MRI Detailed) CPT:99183 Contrast Media : Gadolinium Reason for Study: SEE CLINICAL HISTORY Pharmaceutical: GADOTERIDOL 279.3MG/ML 20ML INJ, 19ml Clinical History: MRI Screening (Required): IMPLANTED DEVICE DOCUMENTATION IMPLANTED DEVICE DOCUMENTATION NOT FOUND Does the [place] have any Cardiac Implants? None Does the have any implanted stimulators? None Does the [place] have cochlear implants? No Does the [place] have Cerebral aneurysm clip(s)? I don't know Does the have any shrapnel? I don't know If yes, where in your body? Please list other implants not listed above: MRI table has a weight limit of 551 lbs. [place]'s Weight: *212 lb [96.16 kg] (09/04/2024 05:19) Is this patient claustrophobic?: No REASON FOR EXAM:MULTIPLE SCLEROSIS (indicate suspected or established) PERTINENT PATIENT HISTORY: MS c/f for flare Risk factors for GADOLINIUM NEPHROGENIC SYSTEMIC SCLEROSIS: Report Status: Verified Date Reported: SEP 06, 2024 Date Verified: SEP 06, 2024 Door Worker E-Sig: Report: MRI brain without and [...] ARCENIO LEYVA, Staff Radiologist Verified by campaign manager for ARCENIO LEYVA /ARCENIO AVILA[facility] Sep 06, 2024 01:40 PM MRI C SPINE W & W/ O CONTRAST(FURTHER SEQUENCES): LUIS MANUEL PERDOMO [id number] -1945 M Exm Date: SEP 06, 2024@13:40 Req Phys: FRANCK TURNERISIAHFLOSav Pat Loc: 5-MED/TEL/09-07-2024@06:42 Img Loc: [facility] Service: [place] [address] (Case [id number] COMPLETE) MRI C SPINE W & W/O CONTRAST(FURT(MRI Detailed) CPT:51777 Contrast Media : Gadolinium Reason for Study: SEE CLINICAL HISTORY Pharmaceutical: GADOTERIDOL 279.3MG/ML 20ML INJ, 19ml Clinical History: STATUS OF PLAIN FILMS:Not performed (Provide justification for MR W/O prior plain films below.) MRI for MS MRI Screening (Required): IMPLANTED DEVICE DOCUMENTATION IMPLANTED DEVICE DOCUMENTATION NOT FOUND Does the have any Cardiac Implants? None Does the [place] have any implanted stimulators? None Does the have cochlear implants? No Does the have Cerebral aneurysm clip(s)? I don't know Does the have any shrapnel? I don't know If yes, where in your body? Please list other implants not listed above: MRI table has a weight limit of 551 lbs. [place]'s Weight: *212 lb [96.16 kg] (09/04/2024 05:19) Is this patient claustrophobic?: No REASON FOR EXAM: MULTIPLE SCLEROSIS (indicate suspected or established) PERTINENT PATIENT HISTORY: MS c/f flare Risk factors for GADOLINIUM NEPHROGENIC SYSTEMIC SCLEROSIS: Report Status: Verified Date Reported: SEP 07, 2024 Date Verified: SEP 07, 2024 Door Worker E-Sig: Report: EXAMINATION: MRI OF THE [...] Staff: HUANG TAI, Radiologist Verified by campaign manager for HUANG TAI /HUANG [facility] Sep 03, 2024 10:45 AM CHEST SINGLE(1) EW: LUIS MANUEL PERDOMO [id number] -1945 M Exm Date: SEP 03, 2024@10:45 Req Phys: FRANCK TURNER Loc: 5-MED/TEL/09-03-2024@10:56 Img Loc: [facility] Service: [place] [address] (Case [id number] COMPLETE)CHEST SINGLE(1) VIEW (RAD Detailed) CPT:86407 Proc Modifiers : PORTABLE EXAM Reason for Study: Eval volume status Clinical History: Report Status: Verified Date Reported: SEP 03, 2024 Date Verified: SEP 03, 2024 Door Worker E-Sig: Report: EXAMINATION: SINGLE VIEW CHEST [...] Staff: HUANG TAI, Radiologist Verified by campaign manager for HUANG TAI /HUANG [facility] Aug 29, 2024 08:[address] HEAD W/O CONT: LUIS MANUEL PERDOMO [id number] -1945 M Exm Date: AUG 29, 2024@20:28 Req Phys: FELISA COLE Loc: ED/4P-12A (Req'g Loc) Img Loc: CT SCAN Service: [place] [address] (Case [id number] COMPLETE) CT HEAD W/O CONT (CT Detailed) CPT:65422 Reason for Study: SEE CLINICAL HISTORY Clinical History: REASON FOR SEND OUT: ATTENDING PHYSICIAN NAME: New transient neurological s/s - suspected TIA HISTORY/REASON FOR EXAM: confusion Report Status: Verified Date Reported: AUG 29, 2024 Date Verified: AUG 29, 2024 Door Worker E-Sig: Report: HISTORY confusion COMPARISON No [...] ABDIRAHMAN CROW, Staff Physician Verified by campaign manager for ABDIRAHMAN CROW /[facility] Pathology Reports: +/- 30 [...] Reporting Lab: [facility] [CLIA# [id number]] [address] [place] [id number] Accession [UID]: [id number] [[id number]] Received: Sep 03, 2024@14:02 Collection sample: URINE, [...] Performed By: [facility] [CLIA# [id number]] [address] [place] [id number] [facility] Sep 02, 2024 06:00 PM LR MICROBIOLOGY RE PORT: Reporting Lab: [facility] [CLIA# [id number]] [address] [place] [address] Accession [UID]: [id number] [[id number]] Received: Sep 02, 2024@18:07 Collection sample: BLD CULTURE BOTTLES Collection date: Sep 02, 2024 18:00 Site/Specimen: BLOOD Provider: FRANCK TURNER Comment on specimen: L HAND Test(s) ordered: CULTURE, BLOOD................ completed: Sep 08, 2024 * BACTERIOLOGY FINAL REPORT => Sep 08, 2024 08:25 TECH CODE: [id number] Bacteriology Remark(s): Blood culture status=NO GROWTH (unless notified otherwise) 09/03/2024 AEROBIC: NO GROWTH ANAEROBIC: NO GROWTH =--=--=--=--=--=--=--=--=--=-- =--=--=--=--=--=--=--=--=--=-- =--=--=--=--=--=-- Performing Laboratory: Bacteriology Report Performed By: [facility] [CLIA# [id number]] [address] [place] [address] [facility] Aug 29, 2024 10:18 PM LR MICROBIOLOGY RE PORT: Reporting Lab: [facility] [CLIA# [id number]] [address] [place] [address] Accession [UID]: [id number] [[id number]] Received: Aug 29, 2024@22:18 Collection sample: URINE, CLEAN CATCH Collection date: Aug 29, 2024 22:18 Site/Specimen: URINE Provider: FELISA COLE Test(s) ordered: CULTURE, URINE................ completed: Aug 31, 2024 09:51 * BACTERIOLOGY FINAL REPORT => Aug 31, 2024 09:51 TECH CODE: [id number] Bacteriology Remark(s): NO GROWTH 08/30/2024 <10,000 CFU/ML. 08/31/2024 =--=--=--=--=--=--=--=--=--=-- =--=--=--=--=--=--=--=--=--=-- =--=--=--=--=--=-- Performing Laboratory: Bacteriology Report Performed By: [facility] [CLIA# [id number]] [address] [place] [address] [facility]
--- OUTSIDE RECORDS SUMMARY | 2024-09-09 05:20 | XMS_ITS ---
[place] DAILY HOSPITALIZATION DATA [facility] Encounter Summary Created on: September 22, 2024 LUIS MANUEL PERDOMO : 1945 Sex: Male Author Name [facility] Organization [facility] Address [address] [place] [address] Care Team Providers Care Tag Machine Operator Name Role Phone YULISSA HENDERSON [...] PLAN F Mar 24, 2014 PLAN F [id number] [phone] LUIS MANUEL PERDOMO PATIENT [facility] [place] [facility] PREFERRED PROVIDER ORGANIZAT ION (PPO) [facility] Sep 21, 2012 [id number] LUIS MANUEL PERDOMO PATIENT [employer] ([id number]) PRESCRIPT ION WL3A Sep 21, 2012 [id number] [phone] LUIS MANUEL PERDOMO PATIENT MEDICARE (WNR) MEDICARE (M) PART B Sep 21, 2012 PART B [id number] NOEMI PERDOMO PATIENT MEDICARE (WNR) MEDICARE (M) PART A Jan 22, 2011 PART A [id number] [phone] LEANNE, NOEMI PATIENT MEDICARE PART D (WNR) MEDICARE (M) PART D Mar 24, 2014 PART D [id number] LUIS MANUEL PERDOMO PATIENT Selected Encounter This section includes the information on record at [place] for the Encounter. Date/Time Encounter Type Encounter Description Reason Pro vider Source Sep 09, 2024 09:20 AM Inpatient Visit DAILY HOSPITALIZATION DATA [facility] Encounter Template Text not used by MS Plan of Treatment: Future Appointments (+ 6 months) and Future Tests (+/- 45 days) The Plan of Treatment section includes [facility] [place] [facility] This section includes future appointments [...] 13, 2024 08:00 AM AMBULATORY - NONE [facility] Sep 30, 2024 01:30 PM AMBULATORY - SURGERY [place] [facility] Active, Pending, and Scheduled Orders This section includes a listing of several types of active, pending, and scheduled orders, including clinic medications orders, diagnostic test orders, procedure orders and consult orders; where the start date of the order is 45 days before the date of the Encounter or 45 days after the date of theEncounter. The data comes from all [facility] facilities. Test Date/Time Test Type Test Details Facility Name Sep 13, 2024 01:33 PM Consult Order [facility] Cons Tamale Maker's Choice [facility] Lab [...] Specimen Type: CAPILLARY Comment: Test performed by: [id number] Meter #: [id number] Ordering Provider: FRANCK TURNER Report Released Date/Time: Sep 09, 2024 12:33 PM Reporting Lab: [address] [address] Performing Lab: [address] [address] GLUCOSE-HAND MONITOR 116 mg/dL H Sep 09, 2024 06:07 AM [facility] GLUCOSE-HAND MONITOR CAPILLARY Specime n Type: CAPILLARY Comment: Test performed by: [id number] Meter #: [id number] Ordering Provider: FRANCK TURNER Report Released Date/Time: Sep 09, 2024 08:17 AM Reporting Lab: [address] [address] Performing Lab: [address] [address] GLUCOSE-HAND MONITOR 112 mg/dL H Sep 08, 2024 09:13 PM [facility] GLUCOSE-HAND MONITOR CAPILLARY Specime n Type: CAPILLARY Comment: Test performed by: [id number] Meter #: [id number] Ordering Provider: FRANCK TURNER Report Released Date/Time: Sep 08, 2024 09:31 PM Reporting Lab: [address] [address] Performing Lab: [address] [address] GLUCOSE-HAND MONITOR 107 mg/dL H Sep 08, 2024 03:49 PM [facility] GLUCOSE-HAND MONITOR CAPILLARY Specime n Type: CAPILLARY Comment: AAMIR RN notified Test performed by: [id number] Meter #: [id number] Ordering Provider: FRANCK TURNER Report Released Date/Time: Sep 08, 2024 04:33 PM Reporting Lab: [address] [address] Performing Lab: [address] [address] GLUCOSE-HAND MONITOR 162 mg/dL H Sep 08, 2024 11:43 AM [facility] GLUCOSE-HAND MONITOR CAPILLARY Specime n Type: CAPILLARY Comment: AAMIR RN notified Test performed by: [id number] Meter #: [id number] Ordering Provider: FRANCK TURNER Report Released Date/Time: Sep 08, 2024 12:03 PM Reporting Lab: [address] [address] Performing Lab: [address] [address] GLUCOSE-HAND MONITOR 133 mg/dL H Sep 08, 2024 06:13 AM [facility] GLUCOSE-HAND MONITOR CAPILLARY Specime n Type: CAPILLARY Comment: Test performed by: [id number] Meter #: [id number] Ordering Provider: FRANCK TURNER Report Released Date/Time: Sep 08, 2024 06:46 AM Reporting Lab: [address] [address] Performing Lab: [address] [address] GLUCOSE-HAND MONITOR 104 mg/dL H Sep 07, 2024 07:59 PM [facility] GLUCOSE-HAND MONITOR CAPILLARY Specime n Type: CAPILLARY Comment: Test performed by: [id number] Meter #: [id number] Ordering Provider: FRANCK TURNER Report Released Date/Time: Sep 07, 2024 09:05 PM Reporting Lab: [address] [address] Performing Lab: [address] [address] GLUCOSE-HAND MONITOR 107 mg/dL H Sep 07, 2024 04:39 PM [facility] GLUCOSE-HAND MONITOR CAPILLARY Specime n Type: CAPILLARY Comment: Test performed by: [id number] Meter #: [id number] Ordering Provider: FRANCK TURNER Report Released Date/Time: Sep 07, 2024 05:09 PM Reporting Lab: [address] [address] Performing Lab: [address] [address] GLUCOSE-HAND MONITOR 105 mg/dL H Sep 07, 2024 11:41 AM [facility] GLUCOSE-HAND MONITOR CAPILLARY Specime n Type: CAPILLARY Comment: Test performed by: [id number] Meter #: [id number] Ordering Provider: FRANCK TURNER Report Released Date/Time: Sep 07, 2024 12:41 PM Reporting Lab: [address] [address] Performing Lab: [address] [address] GLUCOSE-HAND MONITOR 144 mg/dL H Sep 07, 2024 05:56 AM [facility] GLUCOSE-HAND MONITOR CAPILLARY Specime n Type: CAPILLARY Comment: Test performed by: [id number] Meter #: [id number] Ordering Provider: FRANCK TURNER Report Released Date/Time: Sep 07, 2024 06:31 AM Reporting Lab: [address] [address] Performing Lab: [address] [address] GLUCOSE-HAND MONITOR 96 mg/dL Sep 06, 2024 08:10 PM [facility] GLUCOSE-HAND MONITOR CAPILLARY Specime n Type: CAPILLARY Comment: Test performed by: [id number] Meter #: [id number] Ordering Provider: FRANCK TURNER Report Released Date/Time: Sep 06, 2024 08:52 PM Reporting Lab: [address] [address] Performing Lab: [address] [address] GLUCOSE-HAND MONITOR 124 mg/dL H Sep 06, 2024 04:27 PM [facility] GLUCOSE-HAND MONITOR CAPILLARY Specime n Type: CAPILLARY Comment: Test performed by: [id number] Meter #: [id number] Ordering Provider: FRANCK TURNER Report Released Date/Time: Sep 06, 2024 05:15 PM Reporting Lab: [address] [address] Performing Lab: [address] [address] GLUCOSE-HAND MONITOR 107 mg/dL H Sep 06, 2024 12:12 PM [facility] GLUCOSE-HAND MONITOR CAPILLARY Specime n Type: CAPILLARY Comment: Test performed by: [id number] Meter #: [id number] Ordering Provider: FRANCK TURNER Report Released Date/Time: Sep 06, 2024 12:29 PM Reporting Lab: [address] [address] Performing Lab: [address] [address] GLUCOSE-HAND MONITOR 181 mg/dL H -Sep 06, 2024 06:13 AM [facility] GLUCOSE-HAND MONITOR CAPILLARY Specime n Type: CAPILLARY Comment: Test performed by: [id number] Meter #: [id number] Ordering Provider: FRANCK TURNER Report Released Date/Time: Sep 06, 2024 06:36 AM Reporting Lab: [address] [address] Performing Lab: [address] [address] GLUCOSE-HAND MONITOR 102 mg/dL H Sep 05, 2024 08:47 PM [facility] GLUCOSE-HAND MONITOR CAPILLARY Specime n Type: CAPILLARY Comment: Test performed by: [id number] Meter #: [id number] Ordering Provider: FRANCK TURNER Report Released Date/Time: Sep 06, 2024 02:13 AM Reporting Lab: [address] [address] Performing Lab: [address] [address] GLUCOSE-HAND MONITOR 103 mg/dL H Sep 05, 2024 04:40 PM [facility] GLUCOSE-HAND MONITOR CAPILLARY Specime n Type: CAPILLARY Comment: AAMIR RN notified Test performed by: [id number] Meter #: [id number] Ordering Provider: FRANCK TURNER Report Released Date/Time: Sep 05, 2024 05:11 PM Reporting Lab: [address] [address] Performing Lab: [address] [address] GLUCOSE-HAND MONITOR 113 mg/dL H Sep 05, 2024 12:06 PM [facility] GLUCOSE-HAND MONITOR CAPILLARY Specime n Type: CAPILLARY Comment: Test performed by: [id number] Meter #: [id number] Ordering Provider: FRANCK TURNER Report Released Date/Time: Sep 05, 2024 12:23 PM Reporting Lab: [address] [address] Performing Lab: [address] [address] GLUCOSE-HAND MONITOR 115 mg/dL H Sep 05, 2024 06:26 AM [facility] GLUCOSE-HAND MONITOR CAPILLARY Specime n Type: CAPILLARY Comment: AAMIR Correction Dose Test performed by: [id number] Meter #: [id number] Ordering Provider: FRANCK TURNER Report Released Date/Time: Sep 05, 2024 06:43 AM Reporting Lab: [address] [address] Performing Lab: [address] [address] GLUCOSE-HAND MONITOR 111 mg/dL H Sep 04, 2024 08:59 PM [facility] GLUCOSE-HAND MONITOR CAPILLARY Specime n Type: CAPILLARY Comment: AAMIR RN notified Test performed by: [id number] Meter #: [id number] Ordering Provider: FRANCK TURNER Report Released Date/Time: Sep 04, 2024 09:36 PM Reporting Lab: [address] [address] Performing Lab: [address] [address] GLUCOSE-HAND MONITOR 123 mg/dL H Sep 04, 2024 04:41 PM [facility] GLUCOSE-HAND MONITOR CAPILLARY Specime n Type: CAPILLARY Comment: AAMIR RN notified Test performed by: [id number] Meter #: [id number] Ordering Provider: FRANCK TURNER Report Released Date/Time: Sep 04, 2024 05:03 PM Reporting Lab: [address] [address] Performing Lab: [address] [address] GLUCOSE-HAND MONITOR 118 mg/dL H Sep 04, 2024 12:36 PM [facility] GLUCOSE-HAND MONITOR CAPILLARY Specime n Type: CAPILLARY Comment: AAMIR RN notified Test performed by: [id number] Meter #: [id number] Ordering Provider: FRANCK TURNER Report Released Date/Time: Sep 04, 2024 12:53 PM Reporting Lab: [address] [address] Performing Lab: [place] [address] GLUCOSE-HAND MONITOR 129 mg/dL H 71-99 Sep 04, 2024 12:03 PM [facility] RESPIRATORY VIRUS PANEL (BIOFIRE) NASOPHARYN X Specimen Type: NASOPHARYNX Comment: ~For Test: RESPIRATORY VIRUS PANEL (BIOFIRE) ~ORDER READ BACK TO: FRANCK TURNER 09/04/24@11:30 Ordering Provider: FRANCK TURNER Report Released Date/Time: Sep 04, 2024 11:33 AM Reporting Lab: [place] [id number] Performing Lab: [place] [phone] ADENOVIRUS (BIOFIRE) Not Detected -Not D etected [...] 03, 2024 11:10 AM Reporting Lab: [place] [facility] [address] [facility] [address] [address] Performing Lab: [place] [id number] [facility] [address] MAGNESIUM 1.8 mg/dL 1.6-2.6 Sep 04, 2024 [...] Sep 03, 2024 11:10 AM Reporting Lab: [address] [address] Performing Lab: [address] CREATININE 0.75 mg/dL 0.72-1.25 UREA [...] n Type: CAPILLARY Comment: Test performed by: [id number] Meter #: [id number] Ordering Provider: FRANCK TURNER Report Released Date/Time: Sep 04, 2024 06:28 AM Reporting Lab: [address] Performing Lab: [address] GLUCOSE-HAND MONITOR 114 mg/dL H 71-99 Sep 03, 2024 05:19 PM [facility] GLUCOSE-HAND MONITOR CAPILLARY Specime n Type: CAPILLARY Comment: Test performed by: [id number] Meter #: [id number] Ordering Provider: FRANCK TURNER Report Released Date/Time: Sep 03, 2024 05:37 PM Reporting Lab: [address] Performing Lab: [address] [address] GLUCOSE-HAND MONITOR 124 mg/dL H 71-99 Sep 03, 2024 04:41 PM [facility] GLUCOSE-HAND MONITOR CAPILLARY Specime n Type: CAPILLARY Comment: Test performed by: [id number] Meter #: [id number] Ordering Provider: FRANCK TURNER Report Released Date/Time: Sep 03, 2024 06:09 PM Reporting Lab: [address] [address] Performing Lab: [address] [address] GLUCOSE-HAND MONITOR 112 mg/dL H 71-99 Sep 03, 2024 01:35 PM [facility] CREATININE URINE Specimen Type: URINE Comment: ~Altered mental status with no identifiable cause Ordering Provider: FRANCK TURNER Report Released Date/Time: Sep 02, 2024 04:44 PM Reporting Lab: [facility] [address] [place] [address] Performing Lab: [address] [address] CREATININE 150.9 mg/dL Sep 03, 2024 01:35 PM [facility] URINE LYTES URINE Specimen Type : URINE Comment: ~Altered mental status with no identifiable cause Ordering Provider: FRANCK TURNER Report Released Date/Time: Sep 02, 2024 04:44 PM Reporting Lab: [address] [address] Performing Lab: [address] [address] SODIUM 130 mmol/L POTASSIUM 47.6 mmol/L CHLORIDE 137 mmol/L Sep 03, 2024 01:35 PM [facility] UREA NITROGEN URINE Specimen Type : URINE Comment: ~Altered mental status with no identifiable cause Ordering Provider: FRANCK TURNER Report Released Date/Time: Sep 02, 2024 04:44 PM Reporting Lab: [address] [address] Performing Lab: [address] [address] UREA NITROGEN 320 mg/dL Sep 03, 2024 01:35 PM [facility] URINALYSIS WITH REFLEX TO CULTURE URINE Specimen Type: URINE Comment: ~Altered mental status with no identifiable cause Ordering Provider: FRANCK TURNER Report Released Date/Time: Sep 02, 2024 04:44 PM Reporting Lab: [address] [address] Performing Lab: [address] [address] URINE COLOR Yellow Colorless-Yellow APPEARANCE CLOUDY H [...] H 0-28 Sep 03, 2024 01:35 PM [facility] OSMOLALITY URINE Specimen Type: URINE Comment: ~Altered mental status with no identifiable cause Ordering Provider: FRANCK TURNER Report Released Date/Time: Sep 02, 2024 04:44 PM Reporting Lab: [place] [phone] Performing Lab: [place] [phone] OSMOLALITY 522 mosm/kg 38-1400 Sep 03, 2024 11:58 AM [facility] GLUCOSE-HAND MONITOR CAPILLARY Specime n Type: CAPILLARY Comment: AAMIR RN notified Test performed by: [id number] Meter #: [id number] Ordering Provider: FRANCK TURNER Report Released Date/Time: Sep 03, 2024 12:15 PM Reporting Lab: [address] [address] Performing Lab: [address] [address] GLUCOSE-HAND MONITOR 135 mg/dL H Sep 03, 2024 07:09 AM [facility] GLUCOSE-HAND MONITOR CAPILLARY Specime n Type: CAPILLARY Comment: Test performed by: [id number] Meter #: [id number] Ordering Provider: FRANCK TURNER Report Released Date/Time: Sep 03, 2024 07:26 AM Reporting Lab: [address] [address] Performing Lab: [address] [address] GLUCOSE-HAND MONITOR 120 mg/dL H Sep 03, 2024 07:05 AM [facility] CBC/PLT BLOOD Specimen Type: BLOOD No comment entered. Ordering Provider: FRANCK TURNER Report Released Date/Time: Sep 02, 2024 04:29 PM Reporting Lab: [address] [address] Performing Lab: [address] [address] WBC 6.9 10*3/uL 5.0-10.0 RBC 3.48 10*6/uL [...] Sep 02, 2024 04:29 PM Reporting Lab: [address] [address] Performing Lab: [address] [address] MAGNESIUM 1.7 mg/dL 1.6-2.6 Sep 03, 2024 [...] Sep 02, 2024 04:29 PM Reporting Lab: [address] [address] Performing Lab: [address] [address] CREATININE 0.82 mg/dL 0.72-1.25 UREA NITROGEN 12 [...] BLOOD Comment: Prediabetes: 5.7%-6.4% Diabetes: >= 6.5% [facility] guidelines for A1c interpretation: Glycemic control [...] 8.73 and 9.27. Ref: https://ngsp.org/CAPdata.asp. The in-house PLASTIQ-Pawngo D-100 analyzer has a historical CV <= 2%. Contact the laboratory for further performance characteristics of this assay. Ordering Provider: FRANCK TURNER Report Released Date/Time: Sep 02, 2024 04:29 PM Reporting Lab: [address] [address] Performing Lab: [place] [phone] GLYCOHEMOGLOBIN 5.6 4.4-5.6 Sep 03, 2024 07:05 AM [facility] OSMOLALITY SERUM Specimen Type: SERUM No comment entered. Ordering Provider: FRANCK TURNER Report Released Date/Time: Sep 02, 2024 04:44 PM Reporting Lab: [address] [address] Performing Lab: [address] [address] OSMOLALITY 271 mosm/kg L 280-300 Sep 02, 2024 08:15 PM [facility] GLUCOSE-HAND MONITOR CAPILLARY Specime n Type: CAPILLARY Comment: AAMIR DEXTER notified Test performed by: [id number] Meter #: [id number] Ordering Provider: FRANCK TURNER Report Released Date/Time: Sep 02, 2024 08:57 PM Reporting Lab: [address] [address] Performing Lab: [address] [address] GLUCOSE-HAND MONITOR 126 mg/dL H 71-99 Sep [...] Sep 02, 2024 05:12 PM Reporting Lab: [address] [address] Performing Lab: [address] [address] MRSA SURVL NARES DNA Negative Negative Sep 02, 2024 05:36 PM [facility] GLUCOSE-HAND MONITOR CAPILLARY Specime n Type: CAPILLARY Comment: Test performed by: [id number] Meter #: [id number] Ordering Provider: FRANCK TURNER Report Released Date/Time: Sep 02, 2024 05:53 PM Reporting Lab: [address] [address] Performing Lab: [address] [address] GLUCOSE-HAND MONITOR 127 mg/dL H 71-99 Aug 29, 2024 10:04 PM [facility] URINALYSIS WITH REFLEX TO CULTURE URINE Specimen Type: URINE Comment: ~For Test: URINALYSIS WITH REFLEX TO CULTURE ~REORDER Ordering Provider: FELISA COLE Report Released Date/Time: Aug 29, 2024 09:36 PM Reporting Lab: [address] [address] Performing Lab: [address] [address] URINE COLOR Yellow Colorless-Yellow APPEARANCE Clear Clear [...] 0-28 Aug 29, 2024 08:32 [facility] HIGH SENSITIVITY TROPONIN I PLASMA [...] Aug 29, 2024 07:55 PM Reporting Lab: [address] [address] Performing Lab: [address] [address] HIGH SENSITIVITY TROPONIN I 7 4-35 Aug 29, 2024 08:32 PM [facility] CBC/PLT BLOOD Specimen Type: BLOOD No comment entered. Ordering Provider: FELISA COLE Report Released Date/Time: Aug 29, 2024 07:55 PM Reporting Lab: [address] [address] Performing Lab: [address] [address] WBC 11.2 10*3/uL H 5.0-10.0 RBC 3.97 10*6/uL L 4.6-6.2 HGB 10.9 g/dL L 14.0-18.0 HCT 33.5 L 42.0-52.0 MCV 84.4 fL 80.0-94.0 MCH 27.5 pg 27.0-31.0 MCHC 32.5 g/dL 32.0-36.0 PLT 230 10*3/uL 150-450 MPV 10.2 fL 9.0-13.1 RDW 14.6 11.0-16.0 NRBC 0.0 0.0-0.0 Aug 29, 2024 08:32 PM [facility] Specimen Type: [...] Aug 29, 2024 07:55 PM Reporting Lab: [address] [address] Performing Lab: [address] [address] CREATININE 0.85 mg/dL 0.72-1.25 UREA NITROGEN 15 [...] mm[Hg] 16 /min 95 % [place] [facility] Sep 09, 2024 08:09 AM 97.7 F 77 /min 117/68 mm[Hg] 18 /min 91 % 6 [place] [facility] Sep 09, 2024 04:40 AM 213.6 lb 32 [place] [facility] Sep 09, 2024 04:11 AM 97.7 F 70 /min 168/79 mm[Hg] 20 /min 93 % 0 [place] [facility] Advance Directives: All historical and [...] 08, 2024 ADVANCE DIRECTIVE DISCUSSION [facility] Radiology Reports: +/- 30 days of [...] BRAIN W & W/O: LUIS MANUEL PERDOMO [id number] -1945 M Exm Date: SEP 06, 2024@13:40 Req Phys: FRANCK TURNER Loc: 5-MED/TEL/09-06-2024@19:09 Img Loc: [facility] Service: [place] [address] (Case [id number] COMPLETE) MRI BRAIN W & W/O (MRI Detailed) CPT:99870 Contrast Media : Gadolinium Reason for Study: SEE CLINICAL HISTORY Pharmaceutical: GADOTERIDOL 279.3MG/ML 20ML INJ, 19ml Clinical History: MRI Screening (Required): IMPLANTED DEVICE DOCUMENTATION IMPLANTED DEVICE DOCUMENTATION NOT FOUND Does the [place] have any Cardiac Implants? None Does the have any implanted stimulators? None Does the [place] have cochlear implants? No Does the [place] have Cerebral aneurysm clip(s)? I don't know Does the have any shrapnel? I don't know If yes, where in your body? Please list other implants not listed above: MRI table has a weight limit of 551 lbs. [place]'s Weight: *212 lb [96.16 kg] (09/04/2024 05:19) Is this patient claustrophobic?: No REASON FOR EXAM:MULTIPLE SCLEROSIS (indicate suspected or established) PERTINENT PATIENT HISTORY: MS c/f for flare Risk factors for GADOLINIUM NEPHROGENIC SYSTEMIC SCLEROSIS: Report Status: Verified Date Reported: SEP 06, 2024 Date Verified: SEP 06, 2024 Corporate Communications Specialist E-Sig: Report: MRI brain without and [...] Staff: ARCENIO LEYVA, Staff Radiologist Verified by cross country truck driver for ARCENIO LEYVA /ARCENIO [facility]ILA-[facility] Sep 06, 2024 01:40 PM MRI C SPINE W & W/ O CONTRAST(FURTHER SEQUENCES): LUIS MANUEL PERDOMO [id number] -1945 M Exm Date: SEP 06, 2024@13:40 Req Phys: FRANCK TURNERISIAHFLOSav Pat Loc: 5-MED/TEL/09-07-2024@06:42 Img Loc: [facility] Service: [place] [address] (Case [id number] COMPLETE) MRI C SPINE W & W/O CONTRAST(FURT(MRI Detailed) CPT:03967 Contrast Media : Gadolinium Reason for Study: SEE CLINICAL HISTORY Pharmaceutical: GADOTERIDOL 279.3MG/ML 20ML INJ, 19ml Clinical History: STATUS OF PLAIN FILMS:Not performed (Provide justification for MR W/O prior plain films below.) MRI for MS MRI Screening (Required): IMPLANTED DEVICE DOCUMENTATION IMPLANTED DEVICE DOCUMENTATION NOT FOUND Does the have any Cardiac Implants? None Does the [place] have any implanted stimulators? None Does the have cochlear implants? No Does the have Cerebral aneurysm clip(s)? I don't know Does the have any shrapnel? I don't know If yes, where in your body? Please list other implants not listed above: MRI table has a weight limit of 551 lbs. [place]'s Weight: *212 lb [96.16 kg] (09/04/2024 05:19) Is this patient claustrophobic?: No REASON FOR EXAM: MULTIPLE SCLEROSIS (indicate suspected or established) PERTINENT PATIENT HISTORY: MS c/f flare Risk factors for GADOLINIUM NEPHROGENIC SYSTEMIC SCLEROSIS: Report Status: Verified Date Reported: SEP 07, 2024 Date Verified: SEP 07, 2024 Corporate Communications Specialist E-Sig: Report: EXAMINATION: MRI OF THE [...] Interpreting Staff: HUANG TAI, Radiologist Verified by cross country truck driver for HUANG TAI /HUANG [place] Sep 03, 2024 10:45 AM CHEST SINGLE(1) EW: LUIS MANUEL PERDOMO [id number] -1945 M Exm Date: SEP 03, 2024@10:45 Req Phys: FRANCK TURNER Loc: 5-MED/TEL/09-03-2024@10:56 Img Loc: [facility] Service: [place] [address] (Case [id number] COMPLETE)CHEST SINGLE(1) VIEW (RAD Detailed) CPT:52248 Proc Modifiers : PORTABLE EXAM Reason for Study: Eval volume status Clinical History: Report Status: Verified Date Reported: SEP 03, 2024 Date Verified: SEP 03, 2024 Corporate Communications Specialist E-Sig: Report: EXAMINATION: SINGLE VIEW CHEST [...] Interpreting Staff: HUANG TAI, Radiologist Verified by cross country truck driver for HUANG TAI /HUANG [place] Aug 29, 2024 08:[address] HEAD W/O CONT: LUIS MANUEL PERDOMO [id number] -1945 M Exm Date: AUG 29, 2024@20:28 Req Phys: FELISA COLE Loc: ED/4P-12A (Req'g Loc) Img Loc: CT SCAN Service: [place] [address] (Case [id number] COMPLETE) CT HEAD W/O CONT (CT Detailed) CPT:90143 Reason for Study: SEE CLINICAL HISTORY Clinical History: REASON FOR SEND OUT: ATTENDING PHYSICIAN NAME: New transient neurological s/s - suspected TIA HISTORY/REASON FOR EXAM: confusion Report Status: Verified Date Reported: AUG 29, 2024 Date Verified: AUG 29, 2024 Corporate Communications Specialist E-Sig: Report: HISTORY confusion COMPARISON No [...] Staff: ABDIRAHMAN CROW, Staff Physician Verified by cross country truck driver for ABDIRAHMAN CROW /[facility] Pathology Reports: +/- 30 [...] Reporting Lab: [facility] [CLIA# [id number]] [address] [place] [id number] Accession [UID]: [id number] [[id number]] Received: Sep 03, 2024@14:02 Collection sample: URINE, [...] Performed By: [facility] [facility] [CLIA# [id number]] [address] [place] [id number] [facility]RES[facility]. [facility] Sep 02, 2024 06:00 PM LR MICROBIOLOGY RE PORT: Reporting Lab: [facility] [CLIA# [id number]] [address] [place] [address] Accession [UID]: [id number] [[id number]] Received: Sep 02, 2024@18:07 Collection sample: BLD CULTURE BOTTLES Collection date: Sep 02, 2024 18:00 Site/Specimen: BLOOD Provider: FRANCK TURNER Comment on specimen: L HAND Test(s) ordered: CULTURE, BLOOD................ completed: Sep 08, 2024 * BACTERIOLOGY FINAL REPORT => Sep 08, 2024 08:25 TECH CODE: [id number] Bacteriology Remark(s): Blood culture status=NO GROWTH (unless notified otherwise) 09/03/2024 AEROBIC: NO GROWTH ANAEROBIC: NO GROWTH =--=--=--=--=--=--=--=--=--=-- =--=--=--=--=--=--=--=--=--=-- =--=--=--=--=--=-- Performing Laboratory: Bacteriology Report Performed By: [facility] [CLIA# [id number]] [address] [place] [address] MAGDY CALABRESE [facility] Aug 29, 2024 10:18 PM LR MICROBIOLOGY RE PORT: Reporting Lab: [facility] [CLIA# [id number]] [address] [place] [address] Accession [UID]: [id number] [[id number]] Received: Aug 29, 2024@22:18 Collection sample: URINE, CLEAN CATCH Collection date: Aug 29, 2024 22:18 Site/Specimen: URINE Provider: FELISA COLE Test(s) ordered: CULTURE, URINE................ completed: Aug 31, 2024 09:51 * BACTERIOLOGY FINAL REPORT => Aug 31, 2024 09:51 TECH CODE: [id number] Bacteriology Remark(s): NO GROWTH 08/30/2024 <10,000 CFU/ML. 08/31/2024 =--=--=--=--=--=--=--=--=--=-- =--=--=--=--=--=--=--=--=--=-- =--=--=--=--=--=-- Performing Laboratory: Bacteriology Report Performed By: [facility] [CLIA# [id number]] [address] [place] [address] MAGDY CALABRESE[facility]
--- OUTSIDE RECORDS SUMMARY | 2024-09-09 05:21 | XMS_ITS | Encounter Summary ---
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 Name Role Phone YULISSA HENDERSON Primary [...] PLAN F Mar 24, 2014 PLAN F [id number] LUIS MANUEL PERDOMO PATIENT BS [place] [employer] PREFERRED PROVIDER ORGANIZAT ION (PPO) [facility] Sep 21, 2012 [id number] LUIS MANUEL PERDOMO PATIENT [employer] ([id number]) PRESCRIPT ION WL3A Sep 21, 2012 WL3A [id number] [phone] LUIS MANUEL PERDOMO PATIENT MEDICARE (WNR) MEDICARE (M) PART B Sep 21, 2012 PART B [id number] NOEMI PERDOMO PATIENT MEDICARE (WNR) MEDICARE (M) PART A Jan 22, 2011 PART A [id number] NOEMI PERDOMO PATIENT MEDICARE PART D (WNR) MEDICARE (M) PART D Mar 24, 2014 PART D [id number] LUIS MANUEL PERDOMO PATIENT Selected Encounter This section includes the information on record at CT for the Encounter. Date/Time Encounter Type Encounter Description Reason Pro vider Source Sep 09, 2024 09:21 AM Inpatient Visit CLINICAL PHARMACY IHE Encounter Template Text not used by CT Plan of Treatment: Future Appointments (+ 6 months) and Future Tests (+/- 45 days) The Plan of Treatment section includes future care activities for the patient from all [facility]. This section includes future appointments and future orders which are active, pending or scheduled. Future Appointments This section includes appointments that were scheduled to occur 6 months from the date of the Encounter, up to a maximum of 20 appointments. The data comes from all [facility] facilities. Appointment Date/Time Appointment Type Appointme nt Facility Name Sep 13, 2024 08:00 AM [facility] [place] [facility] Sep 30, 2024 01:30 PM [facility] - [place] [facility] Active, Pending, and Scheduled Orders This section includes a listing of several types of active, pending, and scheduled orders, including clinic medications orders, diagnostic test orders, procedure orders and consult orders; where the start date of the order is 45 days before the date of the Encounter or 45 days after the date of theEncounter. The data comes from all [facility]. Test Date/Time Test Type Test Details Facility Name Sep 13, 2024 01:33 PM Consult Order [facility] Cons Head Stock Transfer Clerk's Choice [facility] Lab Results: +/- 30 [...] Specimen Type: CAPILLARY Comment: Test performed by: [id number] Meter #: [id number] Ordering Provider: FRANCK TURNER Report Released Date/Time: Sep 09, 2024 12:33 PM Reporting Lab: [address] [address] Performing Lab: [address] [address] GLUCOSE-HAND MONITOR 116 mg/dL H Sep 09, 2024 06:07 AM [facility] GLUCOSE-HAND MONITOR CAPILLARY Specime n Type: CAPILLARY Comment: Test performed by: [id number] Meter #: [id number] Ordering Provider: FRANCK TURNER Report Released Date/Time: Sep 09, 2024 08:17 AM Reporting Lab: [address] [address] Performing Lab: [address] [address] GLUCOSE-HAND MONITOR 112 mg/dL H Sep 08, 2024 09:13 PM [facility] GLUCOSE-HAND MONITOR CAPILLARY Specime n Type: CAPILLARY Comment: Test performed by: [id number] Meter #: [id number] Ordering Provider: FRANCK TURNER Report Released Date/Time: Sep 08, 2024 09:31 PM Reporting Lab: [address] [address] Performing Lab: [address] [address] GLUCOSE-HAND MONITOR 107 mg/dL H Sep 08, 2024 03:49 PM [facility] GLUCOSE-HAND MONITOR CAPILLARY Specime n Type: CAPILLARY Comment: AAMIR RN notified Test performed by: [id number] Meter #: [id number] Ordering Provider: FRANCK TURNER Report Released Date/Time: Sep 08, 2024 04:33 PM Reporting Lab: [address] [address] Performing Lab: [address] [address] GLUCOSE-HAND MONITOR 162 mg/dL H Sep 08, 2024 11:43 AM [facility] GLUCOSE-HAND MONITOR CAPILLARY Specime n Type: CAPILLARY Comment: AAMIR RN notified Test performed by: [id number] Meter #: [id number] Ordering Provider: FRANCK TURNER Report Released Date/Time: Sep 08, 2024 12:03 PM Reporting Lab: [address] [address] Performing Lab: [address] [address] GLUCOSE-HAND MONITOR 133 mg/dL H Sep 08, 2024 06:13 AM [facility] GLUCOSE-HAND MONITOR CAPILLARY Specime n Type: CAPILLARY Comment: Test performed by: [id number] Meter #: [id number] Ordering Provider: FRANCK TURNER Report Released Date/Time: Sep 08, 2024 06:46 AM Reporting Lab: [address] [address] Performing Lab: [address] [address] GLUCOSE-HAND MONITOR 104 mg/dL H Sep 07, 2024 07:59 PM [facility] GLUCOSE-HAND MONITOR CAPILLARY Specime n Type: CAPILLARY Comment: Test performed by: [id number] Meter #: [id number] Ordering Provider: FRANCK TURNER Report Released Date/Time: Sep 07, 2024 09:05 PM Reporting Lab: [address] [address] Performing Lab: [address] [address] GLUCOSE-HAND MONITOR 107 mg/dL H Sep 07, 2024 04:39 PM [facility] GLUCOSE-HAND MONITOR CAPILLARY Specime n Type: CAPILLARY Comment: Test performed by: [id number] Meter #: [id number] Ordering Provider: FRANCK TURNER Report Released Date/Time: Sep 07, 2024 05:09 PM Reporting Lab: [address] [address] Performing Lab: [address] [address] GLUCOSE-HAND MONITOR 105 mg/dL H Sep 07, 2024 11:41 AM [facility] GLUCOSE-HAND MONITOR CAPILLARY Specime n Type: CAPILLARY Comment: Test performed by: [id number] Meter #: [id number] Ordering Provider: FRANCK TURNER Report Released Date/Time: Sep 07, 2024 12:41 PM Reporting Lab: [address] [address] Performing Lab: [address] [address] GLUCOSE-HAND MONITOR 144 mg/dL H Sep 07, 2024 05:56 AM [facility] GLUCOSE-HAND MONITOR CAPILLARY Specime n Type: CAPILLARY Comment: Test performed by: [id number] Meter #: [id number] Ordering Provider: FRANCK TURNER Report Released Date/Time: Sep 07, 2024 06:31 AM Reporting Lab: [address] [address] Performing Lab: [address] [address] GLUCOSE-HAND MONITOR 96 mg/dL Sep 06, 2024 08:10 PM [facility] GLUCOSE-HAND MONITOR CAPILLARY Specime n Type: CAPILLARY Comment: Test performed by: [id number] Meter #: [id number] Ordering Provider: FRANCK TURNER Report Released Date/Time: Sep 06, 2024 08:52 PM Reporting Lab: [address] [address] Performing Lab: [address] [address] GLUCOSE-HAND MONITOR 124 mg/dL H Sep 06, 2024 04:27 PM [facility] GLUCOSE-HAND MONITOR CAPILLARY Specime n Type: CAPILLARY Comment: Test performed by: [id number] Meter #: [id number] Ordering Provider: FRANCK TURNER Report Released Date/Time: Sep 06, 2024 05:15 PM Reporting Lab: [address] [address] Performing Lab: [address] [address] GLUCOSE-HAND MONITOR 107 mg/dL H Sep 06, 2024 12:12 PM [facility] GLUCOSE-HAND MONITOR CAPILLARY Specime n Type: CAPILLARY Comment: Test performed by: [id number] Meter #: [id number] Ordering Provider: FRANCK TURNER Report Released Date/Time: Sep 06, 2024 12:29 PM Reporting Lab: [address] [address] Performing Lab: [address] [address] GLUCOSE-HAND MONITOR 181 mg/dL H Sep 06, 2024 06:13 AM [facility] GLUCOSE-HAND MONITOR CAPILLARY Specime n Type: CAPILLARY Comment: Test performed by: [id number] Meter #: [id number] Ordering Provider: FRANCK TURNER Report Released Date/Time: Sep 06, 2024 06:36 AM Reporting Lab: [address] [address] Performing Lab: [address] [address] GLUCOSE-HAND MONITOR 102 mg/dL H Sep 05, 2024 08:47 PM [facility] GLUCOSE-HAND MONITOR CAPILLARY Specime n Type: CAPILLARY Comment: Test performed by: [id number] Meter #: [id number] Ordering Provider: FRANCK TURNER Report Released Date/Time: Sep 06, 2024 02:13 AM Reporting Lab: [address] [address] Performing Lab: [address] [address] GLUCOSE-HAND MONITOR 103 mg/dL H Sep 05, 2024 04:40 PM [facility] GLUCOSE-HAND MONITOR CAPILLARY Specime n Type: CAPILLARY Comment: AAMIR RN notified Test performed by: [id number] Meter #: [id number] Ordering Provider: FRANCK TURNER Report Released Date/Time: Sep 05, 2024 05:11 PM Reporting Lab: [address] [address] Performing Lab: [address] [address] GLUCOSE-HAND MONITOR 113 mg/dL H Sep 05, 2024 12:06 PM [facility] GLUCOSE-HAND MONITOR CAPILLARY Specime n Type: CAPILLARY Comment: Test performed by: [id number] Meter #: [id number] Ordering Provider: FRANCK TURNER Report Released Date/Time: Sep 05, 2024 12:23 PM Reporting Lab: [address] [address] Performing Lab: [address] [address] GLUCOSE-HAND MONITOR 115 mg/dL H Sep 05, 2024 06:26 AM [facility] GLUCOSE-HAND MONITOR CAPILLARY Specime n Type: CAPILLARY Comment: AAMIR Correction Dose Test performed by: [id number] Meter #: [id number] Ordering Provider: FRANCK TURNER Report Released Date/Time: Sep 05, 2024 06:43 AM Reporting Lab: [address] [address] Performing Lab: [address] [address] GLUCOSE-HAND MONITOR 111 mg/dL H Sep 04, 2024 08:59 PM [facility] GLUCOSE-HAND MONITOR CAPILLARY Specime n Type: CAPILLARY Comment: AAMIR RN notified Test performed by: [id number] Meter #: [id number] Ordering Provider: FRANCK TURNER Report Released Date/Time: Sep 04, 2024 09:36 PM Reporting Lab: [address] [address] Performing Lab: [address] [address] GLUCOSE-HAND MONITOR 123 mg/dL H Sep 04, 2024 04:41 PM [facility] GLUCOSE-HAND MONITOR CAPILLARY Specime n Type: CAPILLARY Comment: AAMIR RN notified Test performed by: [id number] Meter #: [id number] Ordering Provider: FRANCK TURNER Report Released Date/Time: Sep 04, 2024 05:03 PM Reporting Lab: [address] [address] Performing Lab: [address] [address] GLUCOSE-HAND MONITOR 118 mg/dL H Sep 04, 2024 12:36 PM [facility] GLUCOSE-HAND MONITOR CAPILLARY Specime n Type: CAPILLARY Comment: AAMIR RN notified Test performed by: [id number] Meter #: [id number] Ordering Provider: FRANCK TURNER Report Released Date/Time: Sep 04, 2024 12:53 PM Reporting Lab: [place] [phone] Performing Lab: [place] [address] GLUCOSE-HAND MONITOR 129 mg/dL H 71-99 Sep 04, 2024 12:03 PM [facility] RESPIRATORY VIRUS PANEL (BIOFIRE) NASOPHARYN X Specimen Type: NASOPHARYNX Comment: ~For Test: RESPIRATORY VIRUS PANEL (BIOFIRE) ~ORDER READ BACK TO: FRANCK TURNER 09/04/24@11:30 Ordering Provider: FRANCK TURNER Report Released Date/Time: Sep 04, 2024 11:33 AM Reporting Lab: [place] [phone] Performing Lab: [place] [phone] ADENOVIRUS (BIOFIRE) Not Detected -Not D etected [...] -Not Detected Sep 04, 2024 06:55 AM [facility] MAGNESIUM PLASMA Specimen Type: [...] 03, 2024 11:10 AM Reporting Lab: [facility] [address] [facility] [address] Performing Lab: [place] [id number] [facility] [address] MAGNESIUM 1.8 mg/dL 1.6-2.6 Sep 04, 2024 06:55 AM [facility] PANEL 1 PLASMA Specimen [...] Sep 03, 2024 11:10 AM Reporting Lab: [place] [address] Performing Lab: [address] CREATININE 0.75 mg/dL 0.72-1.25 UREA NITROGEN 13 mg/dL 9-25 GLUCOSE 105 mg/dL H 74-100 SODIUM 128 mmol/L L 136-145 POTASSIUM 3.9 mmol/L 3.5-5.1 CHLORIDE 99 mmol/L 98-107 CO2 21 mmol/L L 22-29 CALCIUM 8.0 mg/dL L 8.4-10.2 ANION GAP 8 meq/L 3-19 eGFR (CKD-EPI) >90 Sep 04, 2024 06:02 AM [facility] GLUCOSE-HAND MONITOR CAPILLARY Specime n Type: CAPILLARY Comment: Test performed by: [id number] Meter #: [id number] Ordering Provider: FRANCK TURNER Report Released Date/Time: Sep 04, 2024 06:28 AM Reporting Lab: [address] Performing Lab: [address] GLUCOSE-HAND MONITOR 114 mg/dL H 71-99 Sep 03, 2024 05:19 PM [facility] GLUCOSE-HAND MONITOR CAPILLARY Specime n Type: CAPILLARY Comment: Test performed by: [id number] Meter #: [id number] Ordering Provider: FRANCK TURNER Report Released Date/Time: Sep 03, 2024 05:37 PM Reporting Lab: [address] Performing Lab: [address] [address] GLUCOSE-HAND MONITOR 124 mg/dL H 71-99 Sep 03, 2024 04:41 PM [facility] GLUCOSE-HAND MONITOR CAPILLARY Specime n Type: CAPILLARY Comment: Test performed by: [id number] Meter #: [id number] Ordering Provider: FRANCK TURNER Report Released Date/Time: Sep 03, 2024 06:09 PM Reporting Lab: [address] Performing Lab: [address] GLUCOSE-HAND MONITOR 112 mg/dL H 71-99 Sep 03, 2024 01:35 PM [facility] URINE LYTES URINE Specimen Type : URINE Comment: ~Altered mental status with no identifiable cause Ordering Provider: FRANCK TURNER Report Released Date/Time: Sep 02, 2024 04:44 PM Reporting Lab: [facility] [address] [place] [address] Performing Lab: [address] [address] SODIUM 130 mmol/L POTASSIUM 47.6 mmol/L CHLORIDE 137 mmol/L Sep 03, 2024 01:35 PM [facility] CREATININE URINE Specimen Type: URINE Comment: ~Altered mental status with no identifiable cause Ordering Provider: FRANCK TURNER Report Released Date/Time: Sep 02, 2024 04:44 PM Reporting Lab: [address] [address] Performing Lab: [address] [address] CREATININE 150.9 mg/dL Sep 03, 2024 01:35 PM [facility] OSMOLALITY URINE Specimen Type: URINE Comment: ~Altered mental status with no identifiable cause Ordering Provider: FRANCK TURNER Report Released Date/Time: Sep 02, 2024 04:44 PM Reporting Lab: [address] [address] Performing Lab: [address] [address] OSMOLALITY 522 mosm/kg 38-1400 Sep 03, 2024 01:35 PM [facility] UREA NITROGEN URINE Specimen Type : URINE Comment: ~Altered mental status with no identifiable cause Ordering Provider: FRANCK TURNER Report Released Date/Time: Sep 02, 2024 04:44 PM Reporting Lab: [address] [address] Performing Lab: [address] [address] UREA NITROGEN 320 mg/dL Sep 03, 2024 01:35 PM [facility] URINALYSIS WITH REFLEX TO CULTURE URINE Specimen Type: URINE Comment: ~Altered mental status with no identifiable cause Ordering Provider: FRANCK TURNER Report Released Date/Time: Sep 02, 2024 04:44 PM Reporting Lab: [address] [address] Performing Lab: [address] [address] URINE COLOR Yellow Colorless-Yellow APPEARANCE CLOUDY H [...] H 0-28 Sep 03, 2024 11:58 AM [facility] GLUCOSE-HAND MONITOR CAPILLARY Specime n Type: CAPILLARY Comment: AAMIR RN notified Test performed by: [id number] Meter #: [id number] Ordering Provider: FRANCK TURENR Report Released Date/Time: Sep 03, 2024 12:15 PM Reporting Lab: [address] [address] Performing Lab: [address] [address] GLUCOSE-HAND MONITOR 135 mg/dL H Sep 03, 2024 07:09 AM [facility] GLUCOSE-HAND MONITOR CAPILLARY Specime n Type: CAPILLARY Comment: Test performed by: [id number] Meter #: [id number] Ordering Provider: FRANCK TURNER Report Released Date/Time: Sep 03, 2024 07:26 AM Reporting Lab: [address] [address] Performing Lab: [address] [address] GLUCOSE-HAND MONITOR 120 mg/dL H Sep 03, 2024 07:05 AM [facility] CBC/PLT BLOOD Specimen Type: BLOOD No comment entered. Ordering Provider: FRANCK TURNER Report Released Date/Time: Sep 02, 2024 04:29 PM Reporting Lab: [facility] [address] [facility] [address] Performing Lab: [address] [address] WBC 6.9 10*3/uL 5.0-10.0 RBC 3.48 10*6/uL L 4.6-6.2 HGB 9.5 g/dL L 14.0-18.0 HCT 29.1 L 42.0-52.0 MCV 83.6 fL 80.0-94.0 MCH 27.3 pg 27.0-31.0 MCHC 32.6 g/dL 32.0-36.0 PLT 258 10*3/uL 150-450 MPV 10.3 fL 9.0-13.1 RDW 14.8 11.0-16.0 NRBC 0.0 0.0-0.0 Sep 03, 2024 07:05 AM [facility] MAGNESIUM PLASMA Specimen Type: [...] 02, 2024 04:29 PM Reporting Lab: [address] [address] Performing Lab: [address] [address] MAGNESIUM 1.7 mg/dL 1.6-2.6 Sep 03, 2024 07:05 AM [facility] PANEL 1 PLASMA Specimen [...] 02, 2024 04:29 PM Reporting Lab: [address] [address] Performing Lab: [address] [address] CREATININE 0.82 mg/dL 0.72-1.25 UREA NITROGEN 12 mg/dL 9-25 GLUCOSE 109 mg/dL H 74-100 SODIUM 129 mmol/L L 136-145 POTASSIUM 4.2 mmol/L 3.5-5.1 CHLORIDE 99 mmol/L 98-107 CO2 21 mmol/L L 22-29 CALCIUM 8.1 mg/dL L 8.4-10.2 ANION GAP 9 meq/L 3-19 eGFR (CKD-EPI) 90 Sep 03, 2024 07:05 AM [facility] GLYCOHEMOGLOBIN BLOOD Specimen Type: BLOOD Comment: Prediabetes: 5.7%-6.4% Diabetes: >= 6.5% [facility] guidelines for A1c interpretation: Glycemic control [...] 8.73 and 9.27. Ref: https://ngsp.org/CAPdata.asp. The in-house [employer] D-100 analyzer has a historical CV <= 2%. Contact the laboratory for further performance characteristics of this assay. Ordering Provider: FRANCK TURNER Report Released Date/Time: Sep 02, 2024 04:29 PM Reporting Lab: [address] [address] Performing Lab: [address] [address] GLYCOHEMOGLOBIN 5.6 4.4-5.6 Sep 03, 2024 07:05 AM [facility] OSMOLALITY SERUM Specimen Type: SERUM No comment entered. Ordering Provider: FRANCK TURNER Report Released Date/Time: Sep 02, 2024 04:44 PM Reporting Lab: [address] [address] Performing Lab: [address] [address] OSMOLALITY 271 mosm/kg L 280-300 Sep 02, 2024 08:15 PM [facility] GLUCOSE-HAND MONITOR CAPILLARY Specime n Type: CAPILLARY Comment: AAMIR DEXTER notified Test performed by: [id number] Meter #: [id number] Ordering Provider: FRANCK TURNER Report Released Date/Time: Sep 02, 2024 08:57 PM Reporting Lab: [address] [address] Performing Lab: [address] [address] GLUCOSE-HAND MONITOR 126 mg/dL H 71-99 Sep 02, 2024 06:10 PM [facility] MRSA SURVL NARES DNA [...] 02, 2024 05:12 PM Reporting Lab: [address] [address] Performing Lab: [address] [address] MRSA SURVL NARES DNA Negative Negative Sep 02, 2024 05:36 PM [facility] GLUCOSE-HAND MONITOR CAPILLARY Specime n Type: CAPILLARY Comment: Test performed by: [id number] Meter #: [id number] Ordering Provider: FRANCK TURNER Report Released Date/Time: Sep 02, 2024 05:53 PM Reporting Lab: [address] [address] Performing Lab: [address] [address] GLUCOSE-HAND MONITOR 127 mg/dL H 71-99 Aug 29, 2024 10:04 PM [facility] URINALYSIS WITH REFLEX TO CULTURE URINE Specimen Type: URINE Comment: ~For Test: URINALYSIS WITH REFLEX TO CULTURE ~REORDER Ordering Provider: FELISA COLE Report Released Date/Time: Aug 29, 2024 09:36 PM Reporting Lab: [address] [address] Performing Lab: [address] [address] URINE COLOR Yellow Colorless-Yellow APPEARANCE Clear Clear [...] /[LPF] 0-28 Aug 29, 2024 08:32 PM [facility] HIGH SENSITIVITY TROPONIN I PLASMA Specimen Ty [...] I information resource can be reached in [facility] in the Tools menu, under [...] 29, 2024 07:55 PM Reporting Lab: [address] [address] Performing Lab: [address] [address] HIGH SENSITIVITY TROPONIN I 7 4-35 Aug 29, 2024 08:32 PM [facility] CBC/PLT BLOOD Specimen Type: BLOOD No comment entered. Ordering Provider: FELISA COLE Report Released Date/Time: Aug 29, 2024 07:55 PM Reporting Lab: [address] [address] Performing Lab: [address] [address] WBC 11.2 10*3/uL H 5.0-10.0 RBC 3.97 10*6/uL L 4.6-6.2 HGB 10.9 g/dL L 14.0-18.0 HCT 33.5 L 42.0-52.0 MCV 84.4 fL 80.0-94.0 MCH 27.5 pg 27.0-31.0 MCHC 32.5 g/dL 32.0-36.0 PLT 230 10*3/uL 150-450 MPV 10.2 fL 9.0-13.1 RDW 14.6 11.0-16.0 NRBC 0.0 0.0-0.0 Aug 29, 2024 08:32 PM [facility] PAN[facility] 5 PLASMA Specimen Type: PLAS MA Comment: Reference Ranges Females: 4 - 14 [...] 29, 2024 07:55 PM Reporting Lab: [address] [address] Performing Lab: [address] [address] CREATININE 0.85 mg/dL 0.72-1.25 UREA NITROGEN 15 [...] mm[Hg] 16 /min 95 % [place] [facility] Sep 09, 2024 08:09 AM 97.7 F 77 /min 117/68 mm[Hg] 18 /min 91 % 6 [place] [facility] Sep 09, 2024 04:40 AM 213.6 lb 32 [place] Sep 09, 2024 04:11 AM 97.7 F 70 /min 168/79 mm[Hg] 20 /min 93 % 0 [place] Advance Directives: All historical and current Section [...] 08, 2024 ADVANCE DIRECTIVE DISCUSSION [facility] Radiology Reports: +/- 30 days of [...] BRAIN W & W/O: LUIS MANUEL PERDOMO [id number] -1945 M Exm Date: SEP 06, 2024@13:40 Req Phys: FRANCK TURNER Loc: 5-MED/TEL/09-06-2024@19:09 Img Loc: [facility] Service: [place] [address] (Case [id number] COMPLETE) MRI BRAIN W & W/O (MRI Detailed) CPT:81563 Contrast Media : Gadolinium Reason for Study: SEE CLINICAL HISTORY Pharmaceutical: GADOTERIDOL 279.3MG/ML 20ML INJ, 19ml Clinical History: MRI Screening (Required): IMPLANTED DEVICE DOCUMENTATION IMPLANTED DEVICE DOCUMENTATION NOT FOUND Does the [place] have any Cardiac Implants? None Does the have any implanted stimulators? None Does the have cochlear implants? No Does the [place] have Cerebral aneurysm clip(s)? I don't know Does the [place] have any shrapnel? I don't know If [...] Date Verified: SEP 06, 2024 Director Of Restaurant Operations E-Sig: Report: MRI brain without and [...] Staff: ARCENIO LEYVA, Staff Radiologist Verified by bus info consultant for ARCENIO LEYVA /ARCENIO AVILA[facility] Sep 06, 2024 01:40 PM MRI C SPINE W & W/ O CONTRAST(FURTHER SEQUENCES): LUIS MANUEL PERDOMO [id number] -1945 M Exm Date: SEP 06, 2024@13:40 Req Phys: FRANCK TURNERSav Pat Loc: 5-MED/TEL/09-07-2024@06:42 Img Loc: [facility] Service: [facility] [place] [id number] (Case [id number] COMPLETE) MRI C SPINE W & W/O CONTRAST(FURT(MRI Detailed) CPT:53007 Contrast Media : Gadolinium Reason for Study: SEE CLINICAL HISTORY Pharmaceutical: GADOTERIDOL 279.3MG/ML 20ML INJ, 19ml Clinical History: STATUS OF PLAIN FILMS:Not performed (Provide justification for MR W/O prior plain films below.) MRI for MS MRI Screening (Required): IMPLANTED DEVICE DOCUMENTATION IMPLANTED DEVICE DOCUMENTATION NOT FOUND Does the have any Cardiac Implants? None Does the [place] have any implanted stimulators? None Does the [...] Date Verified: SEP 07, 2024 Director Of Restaurant Operations E-Sig: Report: EXAMINATION: MRI OF THE [...] Interpreting Staff: HUANG TAI, Radiologist Verified by bus info consultant for HUANG TAI /HUANG [facility] Sep 03, 2024 10:45 AM CHEST SINGLE(1) EW: LUIS MANUEL PERDOMO [id number] -1945 M Exm Date: SEP 03, 2024@10:45 Req Phys: FRANCK TURNER Loc: 5-MED/TEL/09-03-2024@10:56 Img Loc: [facility] RADIOLOGY Service: [place] [address] (Case [id number] COMPLETE)CHEST SINGLE(1) VIEW (RAD Detailed) CPT:28011 Proc Modifiers : PORTABLE EXAM Reason for Study: Eval volume status Clinical History: Report Status: Verified Date Reported: SEP 03, 2024 Date Verified: SEP 03, 2024 Director Of Restaurant Operations E-Sig: Report: EXAMINATION: SINGLE VIEW CHEST [...] Interpreting Staff: HUANG TAI, Radiologist Verified by bus info consultant for HUANG TAI /[facility]ANG [facility] Aug 29, 2024 08:[address] HEAD W/O CONT: LUIS MANUEL PERDOMO [id number] -1945 M Exm Date: AUG 29, 2024@20:28 Req Phys: FELISA COLE Loc: ED/4P-12A (Req'g Loc) Img Loc: CT SCAN Service: [place] [address] (Case [id number] COMPLETE) CT HEAD W/O CONT (CT Detailed) CPT:58723 Reason for Study: SEE CLINICAL HISTORY Clinical History: REASON FOR SEND OUT: ATTENDING PHYSICIAN NAME: New transient neurological s/s - suspected TIA HISTORY/REASON FOR EXAM: confusion Report Status: Verified Date Reported: AUG 29, 2024 Date Verified: AUG 29, 2024 Director Of Restaurant Operations E-Sig: Report: HISTORY confusion COMPARISON No [...] Staff: ABDIRAHMAN CROW, Staff Physician Verified by bus info consultant for ABDIRAHMAN CROW [facility] Pathology Reports: +/- 30 days [...] Reporting Lab: [facility] [CLIA# [id number]] [address] [place] [id number] Accession [UID]: [id number] [[id number]] Received: Sep 03, 2024@14:02 Collection sample: URINE, [...] Performed By: [facility] [CLIA# [id number]] [address] [place] [id number] [facility] Sep 02, 2024 06:00 PM LR MICROBIOLOGY RE PORT: Reporting Lab: [facility] [CLIA# [id number]] [address] [place], [place] [id number] Accession [UID]: [id number] [[id number]] Received: Sep 02, 2024@18:07 Collection sample: BLD CULTURE BOTTLES Collection date: Sep 02, 2024 18:00 Site/Specimen: BLOOD Provider: FRANCK TURNER Comment on specimen: L HAND Test(s) ordered: CULTURE, BLOOD................ completed: Sep 08, 2024 * BACTERIOLOGY FINAL REPORT => Sep 08, 2024 08:25 TECH CODE: [id number] Bacteriology Remark(s): Blood culture status=NO GROWTH (unless notified otherwise) 09/03/2024 AEROBIC: NO GROWTH ANAEROBIC: NO GROWTH =--=--=--=--=--=--=--=--=--=-- =--=--=--=--=--=--=--=--=--=-- =--=--=--=--=--=-- Performing Laboratory: Bacteriology Report Performed By: [facility] [CLIA# [id number]] [address] [place] [address] MAGDY CALABRESE-Sav [facility] Aug 29, 2024 10:18 PM LR MICROBIOLOGY RE PORT: Reporting Lab: [facility] [CLIA# [id number]] [address] [place], [place] [id number] Accession [UID]: [id number] [[id number]] Received: Aug 29, 2024@22:18 Collection sample: URINE, CLEAN CATCH Collection date: Aug 29, 2024 22:18 Site/Specimen: URINE Provider: FELISA COLE Test(s) ordered: CULTURE, URINE................ completed: Aug 31, 2024 09:51 * BACTERIOLOGY FINAL REPORT => Aug 31, 2024 09:51 TECH CODE: [id number] Bacteriology Remark(s): NO GROWTH 08/30/2024 <10,000 CFU/ML. 08/31/2024 =--=--=--=--=--=--=--=--=--=-- =--=--=--=--=--=--=--=--=--=-- =--=--=--=--=--=-- Performing Laboratory: Bacteriology Report Performed By: [facility] [CLIA# [id number]] [address] [place] [address] MAGDY CALABRESE [facility] Encounter Notes: All associated encounter notes This section contains the clinical notes associated to the Encounter. Date/Time Encounter Note(s) Provider Source Sep 09, 2024 09:26 AM MEDICATION MGT DIS CHARGE NOTE: LOCAL TITLE: OUTPATIENT MEDICATIONS AT DISCHARGE STANDARD TITLE: MEDICATION MGT DISCHARGE NOTE DATE OF NOTE: SEP 09, 2024@09:26 ENTRY DATE: SEP 09, 2024@09:26:36 AUTHOR: GENIA MARIN COSIGNER: URGENCY: STATUS: COMPLETED OUTPATIENT MEDICATIONS AT DISCHARGE Has ADDENDA The following are current [facility] outpatient medications for Mr. LUIS MANUEL PERDOMO at the time of hospital discharge. (This list includes ACTIVE, PENDING, HOLD, and NON-VA medications.) Active medications on discharge to [facility] -Famotidine 20mg tab po bid [...] MONTHS (Received last injection in July 2024) /rosetet/ GENIA MARIN CLINICAL MED REC PHARMACIST Signed: 09/09/2024 09:28 Receipt Acknowledged By: 09/09/2024 10:12 /rosette/ Kimberly Chaparro LCSW Acute Care Teacher Private 09/09/2024 ADDENDUM STATUS: COMPLETED correction to above list: sodium chloride tablets have been stopped. /rosette/ PINKY PENDLETON HOSPITALIST Signed: 09/09/2024 11:33 GENIA MARIN-Sav [facility]
--- OUTSIDE RECORDS SUMMARY | 2024-09-10 03:52 | XMS_ITS | Encounter Summary ---
Author Name [facility] [place] [facility] [place] Address [address] [place] [address] Care Team Providers Care Sound Ranging Crewmember Name Role Phone YULISSA HENDERSON Primary Care [...] PLAN F Mar 24, 2014 PLAN F [id number] [phone] LUIS MANUEL PERDOMO PATIENT [facility] [place] [facility] PREFERRED PROVIDER ORGANIZAT ION (PPO) [facility] Sep 21, 2012 [id number] [phone] LUIS MANUEL PERDOMO PATIENT [facility] ([id number]) PRESCRIPT ION [id number] Sep 21, 2012 [id number] LUIS MANUEL PERDOMO PATIENT MEDICARE (WNR) MEDICARE (M) PART B Sep 21, 2012 PART B [id number] [phone] NOEMI PERDOMO PATIENT MEDICARE (WNR) MEDICARE (M) PART A Jan 22, 2011 PART A [id number] [phone] NOEMI PERDOMO PATIENT MEDICARE PART D (WNR) MEDICARE (M) PART D Mar 24, 2014 PART D [id number] LUIS MANUEL PERDOMO PATIENT Selected Encounter This section includes the information on record at [place] for the Encounter. Date/Time Encounter Type Encounter Description Reason Provider Source Sep 10, 2024 07:52 AM PH1 ASSMT&MGMT NQHP 5-10 TELEPHONE HBPC ICD-10-CM G35 Multiple sclerosis VIPUL SAHA IHStephen Encounter Template Text not used by [place] Assessments - Encounter Diagnoses This section includes the primary and secondary diagnoses documented for the Encounter. 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's Choice [facility] Lab Results: +/- 30 days of the [...] Type Comment Sep 09, 2024 12:16 PM [facility] GLUCOSE-HAND MONITOR CAPILLARY Specimen Type: CAPILLARY Comment: Test performed by: [id number] Meter #: [id number] Ordering Provider: FRANCK TURNER Report Released Date/Time: Sep 09, 2024 12:33 PM Reporting Lab: [address] [address] Performing Lab: [address] [address] GLUCOSE-HAND MONITOR 116 mg/dL H 71-99 Sep 09, 2024 06:07 AM [facility] GLUCOSE-HAND MONITOR CAPILLARY Specime n Type: CAPILLARY Comment: Test performed by: [id number] Meter #: [id number] Ordering Provider: FRANCK TURNER Report Released Date/Time: Sep 09, 2024 08:17 AM Reporting Lab: [address] [address] Performing Lab: [address] [address] GLUCOSE-HAND MONITOR 112 mg/dL H 71-99 Sep 08, 2024 09:13 PM [facility] GLUCOSE-HAND MONITOR CAPILLARY Specime n Type: CAPILLARY Comment: Test performed by: [id number] Meter #: [id number] Ordering Provider: FRANCK TURNER Report Released Date/Time: Sep 08, 2024 09:31 PM Reporting Lab: [address] [address] Performing Lab: [address] [address] GLUCOSE-HAND MONITOR 107 mg/dL H 71-99 Sep 08, 2024 03:49 PM [facility] GLUCOSE-HAND MONITOR CAPILLARY Specime n Type: CAPILLARY Comment: AAMIR RN notified Test performed by: [id number] Meter #: [id number] Ordering Provider: FRANCK TURNER Report Released Date/Time: Sep 08, 2024 04:33 PM Reporting Lab: [address] [address] Performing Lab: [address] [address] GLUCOSE-HAND MONITOR 162 mg/dL H Sep 08, 2024 11:43 AM [facility] GLUCOSE-HAND MONITOR CAPILLARY Specime n Type: CAPILLARY Comment: AAMIR RN notified Test performed by: [id number] Meter #: [id number] Ordering Provider: FRANCK TURNER Report Released Date/Time: Sep 08, 2024 12:03 PM Reporting Lab: [address] [address] Performing Lab: [address] GLUCOSE-HAND MONITOR 133 mg/dL H Sep 08, 2024 06:13 AM [facility] GLUCOSE-HAND MONITOR CAPILLARY Specime n Type: CAPILLARY Comment: Test performed by: [id number] Meter #: [id number] Ordering Provider: FRANCK TURNER Report Released Date/Time: Sep 08, 2024 06:46 AM Reporting Lab: [address] [address] Performing Lab: [address] [address] GLUCOSE-HAND MONITOR 104 mg/dL H Sep 07, 2024 07:59 PM [facility] GLUCOSE-HAND MONITOR CAPILLARY Specime n Type: CAPILLARY Comment: Test performed by: [id number] Meter #: [id number] Ordering Provider: FRANCK TURNER Report Released Date/Time: Sep 07, 2024 09:05 PM Reporting Lab: [address] [address] Performing Lab: [address] [address] GLUCOSE-HAND MONITOR 107 mg/dL H Sep 07, 2024 04:39 PM [facility] GLUCOSE-HAND MONITOR CAPILLARY Specime n Type: CAPILLARY Comment: Test performed by: [id number] Meter #: [id number] Ordering Provider: FRANCK TURNER Report Released Date/Time: Sep 07, 2024 05:09 PM Reporting Lab: [address] [address] Performing Lab: [address] [address] GLUCOSE-HAND MONITOR 105 mg/dL H -Sep 07, 2024 11:41 AM [facility] GLUCOSE-HAND MONITOR CAPILLARY Specime n Type: CAPILLARY Comment: Test performed by: [id number] Meter #: [id number] Ordering Provider: FRANCK TURNER Report Released Date/Time: Sep 07, 2024 12:41 PM Reporting Lab: [address] [address] Performing Lab: [address] [address] GLUCOSE-HAND MONITOR 144 mg/dL H -Sep 07, 2024 05:56 AM [facility] GLUCOSE-HAND MONITOR CAPILLARY Specime n Type: CAPILLARY Comment: Test performed by: [id number] Meter #: [id number] Ordering Provider: FRANCK TURNER Report Released Date/Time: Sep 07, 2024 06:31 AM Reporting Lab: [address] [address] Performing Lab: [address] [address] GLUCOSE-HAND MONITOR 96 mg/dL -Sep 06, 2024 08:10 PM [facility] GLUCOSE-HAND MONITOR CAPILLARY Specime n Type: CAPILLARY Comment: Test performed by: [id number] Meter #: [id number] Ordering Provider: FRANCK TURNER Report Released Date/Time: Sep 06, 2024 08:52 PM Reporting Lab: [address] [address] Performing Lab: [address] [address] GLUCOSE-HAND MONITOR 124 mg/dL H -Sep 06, 2024 04:27 PM [facility] GLUCOSE-HAND MONITOR CAPILLARY Specime n Type: CAPILLARY Comment: Test performed by: [id number] Meter #: [id number] Ordering Provider: FRANCK TURNER Report Released Date/Time: Sep 06, 2024 05:15 PM Reporting Lab: [place] [address] Performing Lab: [address] [address] GLUCOSE-HAND MONITOR 107 mg/dL H -Sep 06, 2024 12:12 PM [facility] GLUCOSE-HAND MONITOR CAPILLARY Specime n Type: CAPILLARY Comment: Test performed by: [id number] Meter #: [id number] Ordering Provider: FRANCK TURNER Report Released Date/Time: Sep 06, 2024 12:29 PM Reporting Lab: [address] [address] Performing Lab: [address] [address] GLUCOSE-HAND MONITOR 181 mg/dL H Sep 06, 2024 06:13 AM [facility] GLUCOSE-HAND MONITOR CAPILLARY Specime n Type: CAPILLARY Comment: Test performed by: [id number] Meter #: [id number] Ordering Provider: FRANCK TURNER Report Released Date/Time: Sep 06, 2024 06:36 AM Reporting Lab: [address] [address] Performing Lab: [address] [address] GLUCOSE-HAND MONITOR 102 mg/dL H Sep 05, 2024 08:47 PM [facility] GLUCOSE-HAND MONITOR CAPILLARY Specime n Type: CAPILLARY Comment: Test performed by: [id number] Meter #: [id number] Ordering Provider: FRANCK TURNER Report Released Date/Time: Sep 06, 2024 02:13 AM Reporting Lab: [address] [address] Performing Lab: [address] [address] GLUCOSE-HAND MONITOR 103 mg/dL H Sep 05, 2024 04:40 PM [facility] GLUCOSE-HAND MONITOR CAPILLARY Specime n Type: CAPILLARY Comment: AAMIR RN notified Test performed by: [id number] Meter #: [id number] Ordering Provider: FRANCK TURNER Report Released Date/Time: Sep 05, 2024 05:11 PM Reporting Lab: [address] [address] Performing Lab: [address] [address] GLUCOSE-HAND MONITOR 113 mg/dL H Sep 05, 2024 12:06 PM [facility] GLUCOSE-HAND MONITOR CAPILLARY Specime n Type: CAPILLARY Comment: Test performed by: [id number] Meter #: [id number] Ordering Provider: FRANCK TURNER Report Released Date/Time: Sep 05, 2024 12:23 PM Reporting Lab: [address] [address] Performing Lab: [address] [address] GLUCOSE-HAND MONITOR 115 mg/dL H Sep 05, 2024 06:26 AM [facility] GLUCOSE-HAND MONITOR CAPILLARY Specime n Type: CAPILLARY Comment: AAMIR Correction Dose Test performed by: [id number] Meter #: [id number] Ordering Provider: FRANCK TURNER Report Released Date/Time: Sep 05, 2024 06:43 AM Reporting Lab: [address] [address] Performing Lab: [address] [address] GLUCOSE-HAND MONITOR 111 mg/dL H Sep 04, 2024 08:59 PM [facility] GLUCOSE-HAND MONITOR CAPILLARY Specime n Type: CAPILLARY Comment: AAMIR RN notified Test performed by: [id number] Meter #: [id number] Ordering Provider: FRANCK TURNER Report Released Date/Time: Sep 04, 2024 09:36 PM Reporting Lab: [address] [address] Performing Lab: [address] [address] GLUCOSE-HAND MONITOR 123 mg/dL H Sep 04, 2024 04:41 PM [facility] GLUCOSE-HAND MONITOR CAPILLARY Specime n Type: CAPILLARY Comment: AAMIR RN notified Test performed by: [id number] Meter #: [id number] Ordering Provider: FRANCK TURNER Report Released Date/Time: Sep 04, 2024 05:03 PM Reporting Lab: [place] [phone] Performing Lab: [place] [address] GLUCOSE-HAND MONITOR 118 mg/dL H Sep 04, 2024 12:36 PM [facility] GLUCOSE-HAND MONITOR CAPILLARY Specime n Type: CAPILLARY Comment: AAMIR RN notified Test performed by: [id number] Meter #: [id number] Ordering Provider: FRANCK TURNER Report Released Date/Time: Sep 04, 2024 12:53 PM Reporting Lab: [place] [phone] Performing Lab: [place] [address] GLUCOSE-HAND MONITOR 129 mg/dL H Sep 04, 2024 12:03 PM [facility] RESPIRATORY VIRUS PANEL (BIOFIRE) NASOPHARYN X Specimen Type: NASOPHARYNX Comment: ~For Test: RESPIRATORY VIRUS PANEL (BIOFIRE) ~ORDER READ BACK TO: FRANCK TURNER 09/04/24@11:30 Ordering Provider: FRANCK TURNER Report Released Date/Time: Sep 04, 2024 11:33 AM Reporting Lab: [place] [address] Performing Lab: [place] [phone] ADENOVIRUS (BIOFIRE) Not Detected -Not D etected [...] Detected Sep 04, 2024 06:55 AM [facility] MAGNESIUM PLASMA Specimen Type: PLASM A [...] Lab: [facility] [address] [facility] [address] Performing Lab: [address] [address] MAGNESIUM 1.8 mg/dL 1.6-2.6 Sep 04, 2024 [...] Sep 03, 2024 11:10 AM Reporting Lab: [address] [address] Performing Lab: [place] [phone] CREATININE 0.75 mg/dL 0.72-1.25 UREA NITROGEN 13 [...] n Type: CAPILLARY Comment: Test performed by: [id number] Meter #: [id number] Ordering Provider: FRANCK TURNER Report Released Date/Time: Sep 04, 2024 06:28 AM Reporting Lab: [address] [address] Performing Lab: [address] [address] GLUCOSE-HAND MONITOR 114 mg/dL H -99 Sep 03, 2024 05:19 PM [facility] GLUCOSE-HAND MONITOR CAPILLARY Specime n Type: CAPILLARY Comment: Test performed by: [id number] Meter #: [id number] Ordering Provider: FRANCK TURNER Report Released Date/Time: Sep 03, 2024 05:37 PM Reporting Lab: [address] [address] Performing Lab: [address] [address] GLUCOSE-HAND MONITOR 124 mg/dL H 71-99 Sep 03, 2024 04:41 PM [facility] GLUCOSE-HAND MONITOR CAPILLARY Specime n Type: CAPILLARY Comment: Test performed by: [id number] Meter #: [id number] Ordering Provider: FRANCK TURNER Report Released Date/Time: Sep 03, 2024 06:09 PM Reporting Lab: [address] [address] Performing Lab: [address] [address] GLUCOSE-HAND MONITOR 112 mg/dL H 71-99 Sep 03, 2024 01:35 PM [facility] URINE LYTES URINE Specimen Type : URINE Comment: ~Altered mental status with no identifiable cause Ordering Provider: FRANCK TURNER Report Released Date/Time: Sep 02, 2024 04:44 PM Reporting Lab: [address] [address] Performing Lab: [address] [address] SODIUM 130 mmol/L POTASSIUM 47.6 mmol/L CHLORIDE 137 mmol/L Sep 03, 2024 01:35 PM [facility] UREA NITROGEN URINE Specimen Type : URINE Comment: ~Altered mental status with no identifiable cause Ordering Provider: FRANCK TURNER Report Released Date/Time: Sep 02, 2024 04:44 PM Reporting Lab: [address] [address] Performing Lab: [address] [address] UREA NITROGEN 320 mg/dL Sep 03, 2024 01:35 PM [facility] CREATININE URINE Specimen Type: URINE Comment: ~Altered mental status with no identifiable cause Ordering Provider: FRANCK TURNER Report Released Date/Time: Sep 02, 2024 04:44 PM Reporting Lab: [address] [address] Performing Lab: [address] [address] CREATININE 150.9 mg/dL Sep 03, 2024 01:35 PM [facility] OSMOLALITY URINE Specimen Type: URINE Comment: ~Altered mental status with no identifiable cause Ordering Provider: FRANCK TURNER Report Released Date/Time: Sep 02, 2024 04:44 PM Reporting Lab: [address] [address] Performing Lab: [address] [address] OSMOLALITY 522 mosm/kg 38-1400 Sep 03, 2024 01:35 PM [facility] URINALYSIS WITH REFLEX TO CULTURE URINE Specimen Type: URINE Comment: ~Altered mental status with no identifiable cause Ordering Provider: FRANCK TURNER Report Released Date/Time: Sep 02, 2024 04:44 PM Reporting Lab: [address] [address] Performing Lab: [address] [address] URINE COLOR Yellow Colorless-Yellow APPEARANCE CLOUDY H [...] Comment: AAMIR RN notified Test performed by: [id number] Meter #: [id number] Ordering Provider: FRANCK TURNER Report Released Date/Time: Sep 03, 2024 12:15 PM Reporting Lab: [address] [address] Performing Lab: [address] [address] GLUCOSE-HAND MONITOR 135 mg/dL H 71-99 Sep 03, 2024 07:09 AM [facility] GLUCOSE-HAND MONITOR CAPILLARY Specime n Type: CAPILLARY Comment: Test performed by: [id number] Meter #: [id number] Ordering Provider: FRANCK TURNER Report Released Date/Time: Sep 03, 2024 07:26 AM Reporting Lab: [address] [address] Performing Lab: [address] [address] GLUCOSE-HAND MONITOR 120 mg/dL H 71-99 Sep [...] 04:29 PM Reporting Lab: [facility] [address] [place] [address] Performing Lab: [address] [address] CREATININE 0.82 mg/dL 0.72-1.25 UREA NITROGEN 12 [...] Sep 02, 2024 04:29 PM Reporting Lab: [address] [address] Performing Lab: [address] [address] MAGNESIUM 1.7 mg/dL 1.6-2.6 Sep 03, 2024 [...] 8.73 and 9.27. Ref: https://ngsp.org/CAPdata.asp. The in-house [employer]-Sh[employer] D-100 analyzer has a historical CV <= 2%. Contact the laboratory for further performance characteristics of this assay. Ordering Provider: FRANCK TURNER Report Released Date/Time: Sep 02, 2024 04:29 PM Reporting Lab: [address] [address] Performing Lab: [address] [address] GLYCOHEMOGLOBIN 5.6 4.4-5.6 Sep 03, 2024 07:05 AM [facility] CBC/PLT BLOOD Specimen Type: BLOOD No comment entered. Ordering Provider: FRANCK TURNER Report Released Date/Time: Sep 02, 2024 04:29 PM Reporting Lab: [address] [address] Performing Lab: [address] [address] WBC 6.9 10*3/uL 5.0-10.0 RBC 3.48 10*6/uL [...] Sep 02, 2024 04:44 PM Reporting Lab: [address] [address] Performing Lab: [address] [address] OSMOLALITY 271 mosm/kg L 280-300 Sep 02, 2024 08:15 PM [facility] GLUCOSE-HAND MONITOR CAPILLARY Specime n Type: CAPILLARY Comment: AAMIR RN notified Test performed by: [id number] Meter #: [id number] Ordering Provider: FRANCK TURNER Report Released Date/Time: Sep 02, 2024 08:57 PM Reporting Lab: [address] [address] Performing Lab: [address] [address] GLUCOSE-HAND MONITOR 126 mg/dL H 71-99 Sep [...] Sep 02, 2024 05:12 PM Reporting Lab: [place] [phone] Performing Lab: [place] [phone] MRSA SURVL NARES DNA Negative Negative Sep 02, 2024 05:36 PM [facility] GLUCOSE-HAND MONITOR CAPILLARY Specime n Type: CAPILLARY Comment: Test performed by: [id number] Meter #: [id number] Ordering Provider: FRANCK TURNER Report Released Date/Time: Sep 02, 2024 05:53 PM Reporting Lab: [address] [address] Performing Lab: [place] [phone] GLUCOSE-HAND MONITOR 127 mg/dL H 71-99 Aug 29, 2024 10:04 PM [facility] URINALYSIS WITH REFLEX TO CULTURE URINE Specimen Type: URINE Comment: ~For Test: URINALYSIS WITH REFLEX TO CULTURE ~REORDER Ordering Provider: FELISA COLE Report Released Date/Time: Aug 29, 2024 09:36 PM Reporting Lab: [address] [address] Performing Lab: [address] [address] URINE COLOR Yellow Colorless-Yellow APPEARANCE Clear Clear [...] 08:32 PM [facility] HIGH SENSITIVITY TROPONIN I PLASMA Specimen [...] Aug 29, 2024 07:55 PM Reporting Lab: [address] [address] Performing Lab: [address] [address] HIGH SENSITIVITY TROPONIN I 7 4-35 Aug 29, 2024 08:32 PM [facility] CBC/PLT BLOOD Specimen Type: BLOOD No comment entered. Ordering Provider: FELISA COLE Report Released Date/Time: Aug 29, 2024 07:55 PM Reporting Lab: [address] [address] Performing Lab: [facility] [address] [facility] [address] WBC 11.2 10*3/uL H 5.0-10.0 RBC 3.97 [...] Aug 29, 2024 07:55 PM Reporting Lab: [address] [address] Performing Lab: [address] [address] CREATININE 0.85 mg/dL 0.72-1.25 UREA NITROGEN 15 [...] DIRECTIVE DISCUSSION RUBIN HILL [facility] Radiology Reports: +/- 30 days of [...] BRAIN W & W/O: LUIS MANUEL PERDOMO [id number] -1945 M Exm Date: SEP 06, 2024@13:40 Req Phys: FRANCK TURNER Loc: 5-MED/TEL/09-06-2024@19:09 Img Loc: [facility] Service: [place] [address] (Case [id number] COMPLETE) MRI BRAIN W & W/O (MRI Detailed) CPT:41757 Contrast Media : Gadolinium Reason for Study: [...] 06, 2024 Date Verified: SEP 06, 2024 Hand Ii Thermal Cutter E-Sig: Report: MRI brain without and [...] Staff: ARCENIO LEYVA, Staff Radiologist Verified by measurement and sensing technician for ARCENIO LEYVA /ARCENIO AVILA-CDSav [facility] Sep 06, 2024 01:40 PM MRI C SPINE W & W/ O CONTRAST(FURTHER SEQUENCES): LUIS MANUEL PERDOMO [id number] -1945 M Exm Date: SEP 06, 2024@13:40 Req Phys: FRANCK TURNER [facility] Loc: 5-MED/TEL/09-07-2024@06:42 Img Loc: [facility] Service: [place] [address] (Case [id number] COMPLETE) MRI C SPINE W & W/O CONTRAST(FURT(MRI Detailed) CPT:22226 Contrast Media : Gadolinium Reason for Study: [...] 07, 2024 Date Verified: SEP 07, 2024 Hand Ii Thermal Cutter E-Sig: Report: EXAMINATION: MRI OF THE [...] Interpreting Staff: HUANG TAI, Radiologist Verified by measurement and sensing technician for HUANG TAI /HUANG WHEATLEY-Sav [facility] Sep 03, 2024 10:45 AM CHEST SINGLE(1) EW: LEANNELUIS MANUEL FINCH [id number] -1945 M Exm Date: SEP 03, 2024@10:45 Req Phys: FRANCK TURNER [facility] Loc: 5-MED/TEL/09-03-2024@10:56 Img Loc: CDD RADIOLOGY Service: [facility] [place] [address] (Case [id number] COMPLETE)CHEST SINGLE(1) VIEW (RAD Detailed) CPT:02116 Proc Modifiers : PORTABLE EXAM Reason for Study: Eval volume status Clinical History: Report Status: Verified Date Reported: SEP 03, 2024 Date Verified: SEP 03, 2024 Hand Ii Thermal Cutter E-Sig: Report: EXAMINATION: SINGLE VIEW CHEST [...] Interpreting Staff: HUANG TAI, Radiologist Verified by measurement and sensing technician for HUANG TAI /HUANG [facility] Aug 29, 2024 08:[address] HEAD W/O CONT: LUIS MANUEL PERDOMO [id number] -1945 M Exm Date: AUG 29, 2024@20:28 Req Phys: FELISA COLE Loc: ED/4-12A (Req'g Loc) Img Loc: CT SCAN Service: [place] [address] (Case [id number] COMPLETE) CT HEAD W/O CONT (CT Detailed) CPT:06672 Reason for Study: SEE CLINICAL HISTORY Clinical History: REASON FOR SEND OUT: ATTENDING PHYSICIAN NAME: New transient neurological s/s - suspected TIA HISTORY/REASON FOR EXAM: confusion Report Status: Verified Date Reported: AUG 29, 2024 Date Verified: AUG 29, 2024 Hand Ii Thermal Cutter E-Sig: Report: HISTORY confusion COMPARISON No [...] Staff: ABDIRAHMAN CROW Staff Physician Verified by measurement and sensing technician for ABDIRAHMAN CROW /ABDIRAHMAN [facility] Pathology [...] Reporting Lab: [facility] [IA# [id number]] [address] [place] [id number] Accession [UID]: [id number] [[id number]] Received: Sep 03, 2024@14:02 Collection sample: URINE, [...] Performed By: [facility] [CLIA# [id number]] [address] [place] [phone] [facility] Sep 02, 2024 06:00 PM LR MICROBIOLOGY RE PORT: Reporting Lab: [facility] [CLIA# [id number]] [address] [place] [phone] Accession [UID]: [id number] [[id number]] Received: Sep 02, 2024@18:07 Collection sample: BLD CULTURE BOTTLES Collection date: Sep 02, 2024 18:00 Site/Specimen: BLOOD Provider: FRANCK TURNER Comment on specimen: L HAND Test(s) ordered: CULTURE, BLOOD................ completed: Sep 08, 2024 * BACTERIOLOGY FINAL REPORT => Sep 08, 2024 08:25 TECH CODE: [id number] Bacteriology Remark(s): Blood culture status=NO GROWTH (unless notified otherwise) 09/03/2024 AEROBIC: NO GROWTH ANAEROBIC: NO GROWTH =--=--=--=--=--=--=--=--=--=-- =--=--=--=--=--=--=--=--=--=-- =--=--=--=--=--=-- Performing Laboratory: Bacteriology Report Performed By: [facility] [CLIA# [id number]] [address] [place] [phone] MAGDY CALABRESE [facility] Aug 29, 2024 10:18 PM LR MICROBIOLOGY RE PORT: Reporting Lab: [facility] [CLIA# [id number]] [address] [place] [phone] Accession [UID]: [id number] [[id number]] Received: Aug 29, 2024@22:18 Collection sample: URINE, CLEAN CATCH Collection date: Aug 29, 2024 22:18 Site/Specimen: URINE Provider: FELISA COLE Test(s) ordered: CULTURE, URINE................ completed: Aug 31, 2024 09:51 * BACTERIOLOGY FINAL REPORT => Aug 31, 2024 09:51 TECH CODE: [id number] Bacteriology Remark(s): NO GROWTH 08/30/2024 <10,000 CFU/ML. 08/31/2024 =--=--=--=--=--=--=--=--=--=-- =--=--=--=--=--=--=--=--=--=-- =--=--=--=--=--=-- Performing Laboratory: Bacteriology Report Performed By: [facility] [CLIA# [id number]] [address] [place] [address] [facility] Encounter Notes: All associated encounter notes This section contains the clinical notes associated to the Encounter. Date/Time Encounter Note(s) Provider Source Sep 10, 2024 07:52 AM PRIMARY CARE NOTE: LOCAL TITLE: POST DISCHARGE CONTACT STANDARD TITLE: PRIMARY CARE NOTE DATE OF NOTE: SEP 10, 2024@07:52 ENTRY DATE: SEP 10, 2024@07:53 AUTHOR: BUNNY SAHA EXP COSIGNER: URGENCY: STATUS: COMPLETED Location of Discharge: Hospital Contact attempt: 1st [place] identified by the following: Full Name Full Social Security Number (SSN) Date of Contact made through telephone call Spoke with someone other than the : Spoke to: , CALLED AND LEFT MESSAGE: INSTRUCTED HER TO LET [facility] KNOW IF/WHEN PT TO BE DISCAHRGED FROM [facility] SO THAT [facility] CARE CAN BE RESUMED [facility] Reason for hospitalization/Emergency Department/Urgent Care visit: NEW ONSET CHF, HYPONATREMIA, BILAT PNEUMONIA Symptoms to monitor for health maintenance: s/s chf exacerbation, s/s resp infx or failure Confirmed no changes made to medications, equipment or supplies. Active medications on discharge to [facility] == == -Famotidine 20mg tab po bid -Bisoprolol fumarate [...] 2 tabs po qhs PRN for sleep PER HOSPITAL SW DISCHARGE PLAN: SW updated med team, pharmacy, and bedside RN of discharge plan. [facility]AVANI faxed D/C Summary, med list, and discharge day progress note to the facility and provided bedside RN with the number for report. 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
--- OUTSIDE RECORDS SUMMARY | 2024-09-13 03:12 | XMS_ITS | Encounter Summary ---
Author Name [facility] [place] Organization [facility] [place] [place] Address [address] [place] [id number] Care Team Providers Care Children'S Tutor Nursery Name Role Phone YULISSA HENDERSON Primary Care [...] PLAN F Mar 24, 2014 PLAN F [id number] LUIS MANUEL PERDOMO PATIENT [facility] [place] [facility] PREFERRED PROVIDER ORGANIZAT ION (PPO) [facility] Sep 21, 2012 [id number] LUIS MANUEL PERDOMO PATIENT [facility] ([id number]) PRESCRIPT ION [id number] Sep 21, 2012 [id number] LUIS MANUEL PERDOMO PATIENT MEDICARE (WNR) MEDICARE (M) PART B Sep 21, 2012 PART B [id number] NOEMI PERDOMO PATIENT MEDICARE (WNR) MEDICARE (M) PART A Jan 22, 2011 PART A [id number] NOEMI PERDOMO PATIENT MEDICARE PART D (WNR) MEDICARE (M) PART D Mar 24, 2014 PART D [id number] LUIS MANUEL PERDOMO PATIENT Selected Encounter This section includes the information on record at [place] for the Encounter. Date/Time Encounter Type Encounter Description Reason Pro vider Source Sep 13, 2024 07:12 AM Outpatient Encounter ADMIN PAT ACTIVTIES (MASNONCT) [...] 2024 01:30 PM AMBULATORY - SURGERY [facility] Active, Pending, and Scheduled Orders This [...] 2024 01:33 PM Consult Order [facility] SKILLED HOME CARE Cons Political Researcher's Choice [facility] Lab Results: +/- [...] Specimen Type: CAPILLARY Comment: Test performed by: [id number] Meter #: [id number] Ordering Provider: FRANCK TURNER Report Released Date/Time: Sep 09, 2024 12:33 PM Reporting Lab: [address] [address] Performing Lab: [address] [address] GLUCOSE-HAND MONITOR 116 mg/dL H -Sep 09, 2024 06:07 AM [facility] GLUCOSE-HAND MONITOR CAPILLARY Specime n Type: CAPILLARY Comment: Test performed by: [id number] Meter #: [id number] Ordering Provider: FRANCK TURNER Report Released Date/Time: Sep 09, 2024 08:17 AM Reporting Lab: [address] [address] Performing Lab: [address] [address] GLUCOSE-HAND MONITOR 112 mg/dL H Sep 08, 2024 09:13 PM [facility] GLUCOSE-HAND MONITOR CAPILLARY Specime n Type: CAPILLARY Comment: Test performed by: [id number] Meter #: [id number] Ordering Provider: FRANCK TURNER Report Released Date/Time: Sep 08, 2024 09:31 PM Reporting Lab: [address] [address] Performing Lab: [address] [address] GLUCOSE-HAND MONITOR 107 mg/dL H Sep 08, 2024 03:49 PM [facility] GLUCOSE-HAND MONITOR CAPILLARY Specime n Type: CAPILLARY Comment: AAMIR RN notified Test performed by: [id number] Meter #: [id number] Ordering Provider: FRANCK TURNER Report Released Date/Time: Sep 08, 2024 04:33 PM Reporting Lab: [address] [address] Performing Lab: [address] [address] GLUCOSE-HAND MONITOR 162 mg/dL H Sep 08, 2024 11:43 AM [facility] GLUCOSE-HAND MONITOR CAPILLARY Specime n Type: CAPILLARY Comment: AAMIR RN notified Test performed by: [id number] Meter #: [id number] Ordering Provider: FRANCK TURNER Report Released Date/Time: Sep 08, 2024 12:03 PM Reporting Lab: [address] [address] Performing Lab: [address] [address] GLUCOSE-HAND MONITOR 133 mg/dL H Sep 08, 2024 06:13 AM [facility] GLUCOSE-HAND MONITOR CAPILLARY Specime n Type: CAPILLARY Comment: Test performed by: [id number] Meter #: [id number] Ordering Provider: FRANCK TURNER Report Released Date/Time: Sep 08, 2024 06:46 AM Reporting Lab: [address] [address] Performing Lab: [address] [address] GLUCOSE-HAND MONITOR 104 mg/dL H Sep 07, 2024 07:59 PM [facility] GLUCOSE-HAND MONITOR CAPILLARY Specime n Type: CAPILLARY Comment: Test performed by: [id number] Meter #: [id number] Ordering Provider: FRANCK TURNER Report Released Date/Time: Sep 07, 2024 09:05 PM Reporting Lab: [address] [address] Performing Lab: [address] [address] GLUCOSE-HAND MONITOR 107 mg/dL H Sep 07, 2024 04:39 PM [facility] GLUCOSE-HAND MONITOR CAPILLARY Specime n Type: CAPILLARY Comment: Test performed by: [id number] Meter #: [id number] Ordering Provider: FRANCK TURNER Report Released Date/Time: Sep 07, 2024 05:09 PM Reporting Lab: [address] [address] Performing Lab: [address] [address] GLUCOSE-HAND MONITOR 105 mg/dL H Sep 07, 2024 11:41 AM [facility] GLUCOSE-HAND MONITOR CAPILLARY Specime n Type: CAPILLARY Comment: Test performed by: [id number] Meter #: [id number] Ordering Provider: FRANCK TURNER Report Released Date/Time: Sep 07, 2024 12:41 PM Reporting Lab: [address] [address] Performing Lab: [address] [address] GLUCOSE-HAND MONITOR 144 mg/dL H Sep 07, 2024 05:56 AM [facility] GLUCOSE-HAND MONITOR CAPILLARY Specime n Type: CAPILLARY Comment: Test performed by: [id number] Meter #: [id number] Ordering Provider: FRANCK TURNER Report Released Date/Time: Sep 07, 2024 06:31 AM Reporting Lab: [address] [address] Performing Lab: [address] [address] GLUCOSE-HAND MONITOR 96 mg/dL Sep 06, 2024 08:10 PM [facility] GLUCOSE-HAND MONITOR CAPILLARY Specime n Type: CAPILLARY Comment: Test performed by: [id number] Meter #: [id number] Ordering Provider: FRANCK TURNER Report Released Date/Time: Sep 06, 2024 08:52 PM Reporting Lab: [address] [address] Performing Lab: [address] [address] GLUCOSE-HAND MONITOR 124 mg/dL H Sep 06, 2024 04:27 PM [facility] GLUCOSE-HAND MONITOR CAPILLARY Specime n Type: CAPILLARY Comment: Test performed by: [id number] Meter #: [id number] Ordering Provider: FRANCK TURNER Report Released Date/Time: Sep 06, 2024 05:15 PM Reporting Lab: [address] [address] Performing Lab: [address] [address] GLUCOSE-HAND MONITOR 107 mg/dL H Sep 06, 2024 12:12 PM [facility] GLUCOSE-HAND MONITOR CAPILLARY Specime n Type: CAPILLARY Comment: Test performed by: [id number] Meter #: [id number] Ordering Provider: FRANCK TURNER Report Released Date/Time: Sep 06, 2024 12:29 PM Reporting Lab: [address] [address] Performing Lab: [address] [address] GLUCOSE-HAND MONITOR 181 mg/dL H Sep 06, 2024 06:13 AM [facility] GLUCOSE-HAND MONITOR CAPILLARY Specime n Type: CAPILLARY Comment: Test performed by: [id number] Meter #: [id number] Ordering Provider: FRANCK TURNER Report Released Date/Time: Sep 06, 2024 06:36 AM Reporting Lab: [address] [address] Performing Lab: [address] [address] GLUCOSE-HAND MONITOR 102 mg/dL H Sep 05, 2024 08:47 PM [facility] GLUCOSE-HAND MONITOR CAPILLARY Specime n Type: CAPILLARY Comment: Test performed by: [id number] Meter #: [id number] Ordering Provider: FRANCK TURNER Report Released Date/Time: Sep 06, 2024 02:13 AM Reporting Lab: [address] [address] Performing Lab: [address] [address] GLUCOSE-HAND MONITOR 103 mg/dL H Sep 05, 2024 04:40 PM [facility] GLUCOSE-HAND MONITOR CAPILLARY Specime n Type: CAPILLARY Comment: AAMIR RN notified Test performed by: [id number] Meter #: [id number] Ordering Provider: FRANCK TURNER Report Released Date/Time: Sep 05, 2024 05:11 PM Reporting Lab: [address] [address] Performing Lab: [address] [address] GLUCOSE-HAND MONITOR 113 mg/dL H Sep 05, 2024 12:06 PM [facility] GLUCOSE-HAND MONITOR CAPILLARY Specime n Type: CAPILLARY Comment: Test performed by: [id number] Meter #: [id number] Ordering Provider: FRANCK TURNER Report Released Date/Time: Sep 05, 2024 12:23 PM Reporting Lab: [address] [address] Performing Lab: [address] [address] GLUCOSE-HAND MONITOR 115 mg/dL H Sep 05, 2024 06:26 AM [facility] GLUCOSE-HAND MONITOR CAPILLARY Specime n Type: CAPILLARY Comment: AAMIR Correction Dose Test performed by: [id number] Meter #: [id number] Ordering Provider: FRANCK TURNER Report Released Date/Time: Sep 05, 2024 06:43 AM Reporting Lab: [place] [phone] Performing Lab: [address] [address] GLUCOSE-HAND MONITOR 111 mg/dL H Sep 04, 2024 08:59 PM [facility] GLUCOSE-HAND MONITOR CAPILLARY Specime n Type: CAPILLARY Comment: AAMIR RN notified Test performed by: [id number] Meter #: [id number] Ordering Provider: FRANCK TURNER Report Released Date/Time: Sep 04, 2024 09:36 PM Reporting Lab: [address] [address] Performing Lab: [address] [address] GLUCOSE-HAND MONITOR 123 mg/dL H Sep 04, 2024 04:41 PM [facility] GLUCOSE-HAND MONITOR CAPILLARY Specime n Type: CAPILLARY Comment: AAMIR RN notified Test performed by: [id number] Meter #: [id number] Ordering Provider: FRANCK TURNER Report Released Date/Time: Sep 04, 2024 05:03 PM Reporting Lab: [address] [address] Performing Lab: [address] [address] GLUCOSE-HAND MONITOR 118 mg/dL H Sep 04, 2024 12:36 PM [facility] GLUCOSE-HAND MONITOR CAPILLARY Specime n Type: CAPILLARY Comment: AAMIR RN notified Test performed by: [id number] Meter #: [id number] Ordering Provider: FRANCK TURNER Report Released Date/Time: Sep 04, 2024 12:53 PM Reporting Lab: [place] [address] Performing Lab: [place] [address] GLUCOSE-HAND MONITOR 129 mg/dL H 71-99 Sep 04, 2024 12:03 PM [facility] RESPIRATORY VIRUS PANEL (BIOFIRE) NASOPHARYN X Specimen Type: NASOPHARYNX Comment: ~For Test: RESPIRATORY VIRUS PANEL (BIOFIRE) ~ORDER READ BACK TO: FRANCK TURNER 09/04/24@11:30 Ordering Provider: FRANCK TURNER Report Released Date/Time: Sep 04, 2024 11:33 AM Reporting Lab: [place] [phone] Performing Lab: [place] [address] ADENOVIRUS (BIOFIRE) Not Detected -Not D etected [...] 03, 2024 11:10 AM Reporting Lab: [address] [address] Performing Lab: [address] [place] [address] MAGNESIUM 1.8 mg/dL 1.6-2.6 Sep 04, 2024 [...] 03, 2024 11:10 AM Reporting Lab: [address] [address] Performing Lab: [address] [address] CREATININE 0.75 mg/dL 0.72-1.25 UREA NITROGEN 13 [...] n Type: CAPILLARY Comment: Test performed by: [id number] Meter #: [id number] Ordering Provider: FRANCK TURNER Report Released Date/Time: Sep 04, 2024 06:28 AM Reporting Lab: [address] Performing Lab: [address] GLUCOSE-HAND MONITOR 114 mg/dL H 71-99 Sep 03, 2024 05:19 PM [facility] GLUCOSE-HAND MONITOR CAPILLARY Specime n Type: CAPILLARY Comment: Test performed by: [id number] Meter #: [id number] Ordering Provider: FRANCK TURNER Report Released Date/Time: Sep 03, 2024 05:37 PM Reporting Lab: [address] [address] Performing Lab: [address] [address] GLUCOSE-HAND MONITOR 124 mg/dL H 71-99 Sep 03, 2024 04:41 PM [facility] GLUCOSE-HAND MONITOR CAPILLARY Specime n Type: CAPILLARY Comment: Test performed by: [id number] Meter #: [id number] Ordering Provider: FRANCK TURNER Report Released Date/Time: Sep 03, 2024 06:09 PM Reporting Lab: [address] [address] Performing Lab: [address] GLUCOSE-HAND MONITOR 112 mg/dL H 71-99 Sep 03, 2024 01:35 PM [facility] URINE LYTES URINE Specimen Type : URINE Comment: ~Altered mental status with no identifiable cause Ordering Provider: FRANCK TURNER Report Released Date/Time: Sep 02, 2024 04:44 PM Reporting Lab: [facility] [address] [place] [address] Performing Lab: [address] [address] SODIUM 130 mmol/L POTASSIUM 47.6 mmol/L CHLORIDE 137 mmol/L Sep 03, 2024 01:35 PM [facility] UREA NITROGEN URINE Specimen Type : URINE Comment: ~Altered mental status with no identifiable cause Ordering Provider: FRANCK TURNER Report Released Date/Time: Sep 02, 2024 04:44 PM Reporting Lab: [address] [address] Performing Lab: [address] [address] UREA NITROGEN 320 mg/dL Sep 03, 2024 01:35 PM [facility] CREATININE URINE Specimen Type: URINE Comment: ~Altered mental status with no identifiable cause Ordering Provider: FRANCK TURNER Report Released Date/Time: Sep 02, 2024 04:44 PM Reporting Lab: [address] [address] Performing Lab: [address] [address] CREATININE 150.9 mg/dL Sep 03, 2024 01:35 PM [facility] OSMOLALITY URINE Specimen Type: URINE Comment: ~Altered mental status with no identifiable cause Ordering Provider: FRANCK TURNER Report Released Date/Time: Sep 02, 2024 04:44 PM Reporting Lab: [address] [address] Performing Lab: [address] [address] OSMOLALITY 522 mosm/kg 38-1400 Sep 03, 2024 01:35 PM [facility] URINALYSIS WITH REFLEX TO CULTURE URINE Specimen Type: URINE Comment: ~Altered mental status with no identifiable cause Ordering Provider: FRANCK TURNER Report Released Date/Time: Sep 02, 2024 04:44 PM Reporting Lab: [address] [address] Performing Lab: [address] [address] URINE COLOR Yellow Colorless-Yellow APPEARANCE CLOUDY H [...] Comment: AAMIR RN notified Test performed by: [id number] Meter #: [id number] Ordering Provider: FRANCK TURNER Report Released Date/Time: Sep 03, 2024 12:15 PM Reporting Lab: [address] [address] Performing Lab: [address] [address] GLUCOSE-HAND MONITOR 135 mg/dL H Sep 03, 2024 07:09 AM [facility] GLUCOSE-HAND MONITOR CAPILLARY Specime n Type: CAPILLARY Comment: Test performed by: [id number] Meter #: [id number] Ordering Provider: FRANCK TURNER Report Released Date/Time: Sep 03, 2024 07:26 AM Reporting Lab: [address] [address] Performing Lab: [address] [address] GLUCOSE-HAND MONITOR 120 mg/dL H Sep 03, [...] 02, 2024 04:29 PM Reporting Lab: [address] [address] Performing Lab: [address] [address] CREATININE 0.82 mg/dL 0.72-1.25 UREA NITROGEN 12 mg/dL 9-25 GLUCOSE 109 mg/dL H 74-100 SODIUM 129 mmol/L L 136-145 POTASSIUM 4.2 mmol/L 3.5-5.1 CHLORIDE 99 mmol/L 98-107 CO2 21 mmol/L L 22-29 CALCIUM 8.1 mg/dL L 8.4-10.2 ANION GAP 9 meq/L 3-19 eGFR (CKD-EPI) Sep 03, 2024 07:05 AM [facility] MAGNESIUM PLASMA Specimen Type: PLASM [...] 02, 2024 04:29 PM Reporting Lab: [address] [address] Performing Lab: [address] [address] MAGNESIUM 1.7 mg/dL 1.6-2.6 Sep 03, 2024 07:05 AM [facility] GLYCOHEMOGLOBIN BLOOD Specimen Type: BLOOD Comment: Prediabetes: 5.7%-6.4% Diabetes: >= 6.5% [facility] guidelines for A1c interpretation: Glycemic [...] 8.73 and 9.27. Ref: https://ngsp.org/CAPdata.asp. The in-house [employer] Voiceboard D-100 analyzer has a historical CV <= 2%. Contact the laboratory for further performance characteristics of this assay. Ordering Provider: FRANCK TURNER Report Released Date/Time: Sep 02, 2024 04:29 PM Reporting Lab: [address] [address] Performing Lab: [address] [address] GLYCOHEMOGLOBIN 5.6 4.4-5.6 Sep 03, 2024 07:05 AM [facility] CBC/PLT BLOOD Specimen Type: BLOOD No comment entered. Ordering Provider: FRANCK TURNER Report Released Date/Time: Sep 02, 2024 04:29 PM Reporting Lab: [address] [address] Performing Lab: [address] [address] WBC 6.9 10*3/uL 5.0-10.0 RBC 3.48 10*6/uL [...] 02, 2024 04:44 PM Reporting Lab: [address] [address] Performing Lab: [address] [address] OSMOLALITY 271 mosm/kg L 280-300 Sep 02, 2024 08:15 PM [facility] GLUCOSE-HAND MONITOR CAPILLARY Specime n Type: CAPILLARY Comment: AAMIR DEXTER notified Test performed by: [id number] Meter #: [id number] Ordering Provider: FRANCK TURNER Report Released Date/Time: Sep 02, 2024 08:57 PM Reporting Lab: [address] [address] Performing Lab: [address] [address] GLUCOSE-HAND MONITOR 126 mg/dL H 71-99 Sep [...] 02, 2024 05:12 PM Reporting Lab: [address] [address] Performing Lab: [address] [address] MRSA SURVL NARES DNA Negative Negative Sep 02, 2024 05:36 PM [facility] GLUCOSE-HAND MONITOR CAPILLARY Specime n Type: CAPILLARY Comment: Test performed by: [id number] Meter #: [id number] Ordering Provider: FRANCK TURNER Report Released Date/Time: Sep 02, 2024 05:53 PM Reporting Lab: [address] [address] Performing Lab: [address] [address] GLUCOSE-HAND MONITOR 127 mg/dL H 71-99 Aug 29, 2024 10:04 PM [facility] URINALYSIS WITH REFLEX TO CULTURE URINE Specimen Type: URINE Comment: ~For Test: URINALYSIS WITH REFLEX TO CULTURE ~REORDER Ordering Provider: FELISA COLE Report Released Date/Time: Aug 29, 2024 09:36 PM Reporting Lab: [address] [address] Performing Lab: [address] [address] URINE COLOR Yellow Colorless-Yellow APPEARANCE Clear Clear [...] /[LPF] 0-28 Aug 29, 2024 08:32 PM [facility] HIGH SENSITIVITY TROPONIN I [...] information resource can be reached in [facility] in the Tools menu, under [...] 29, 2024 07:55 PM Reporting Lab: [address] [address] Performing Lab: [address] [address] HIGH SENSITIVITY TROPONIN I 7 4-35 Aug 29, 2024 08:32 PM [facility] CBC/PLT BLOOD Specimen Type: BLOOD No comment entered. Ordering Provider: FELISA COLE Report Released Date/Time: Aug 29, 2024 07:55 PM Reporting Lab: [address] [address] Performing Lab: [address] [address] WBC 11.2 10*3/uL H 5.0-10.0 RBC 3.97 [...] information resource can be reached in [facility] in the Tools menu, under [...] 29, 2024 07:55 PM Reporting Lab: [address] [address] Performing Lab: [address] [address] CREATININE 0.85 mg/dL 0.72-1.25 UREA NITROGEN 15 [...] BRAIN W & W/O: LUIS MANUEL PERDOMO [id number] -1945 M Exm Date: SEP 06, 2024@13:40 Req Phys: FRANCK TURNER [facility] Loc: 5-MED/TEL/09-06-2024@19:09 Img Loc: [facility] Service: [place] [address] (Case [id number] COMPLETE) MRI BRAIN W & W/O (MRI Detailed) CPT:65403 Contrast Media : Gadolinium Reason for Study: SEE CLINICAL HISTORY Pharmaceutical: GADOTERIDOL 279.3MG/ML 20ML INJ, 19ml Clinical History: MRI Screening (Required): IMPLANTED DEVICE DOCUMENTATION IMPLANTED DEVICE DOCUMENTATION NOT FOUND Does the Conner have any Cardiac Implants? None Does the have any implanted stimulators? None Does the Conner have cochlear implants? No Does the Conner have Cerebral aneurysm clip(s)? I don't know Does the Conner have any shrapnel? I don't know If yes, where in your body? Please list other implants not listed above: MRI table has a weight limit of 551 lbs. Conner's Weight: *212 lb [96.16 kg] (09/04/2024 05:19) Is this patient claustrophobic?: No REASON FOR EXAM:MULTIPLE SCLEROSIS (indicate suspected or established) PERTINENT PATIENT HISTORY: MS c/f for flare Risk factors for GADOLINIUM NEPHROGENIC SYSTEMIC SCLEROSIS: Report Status: Verified Date Reported: SEP 06, 2024 Date Verified: SEP 06, 2024 City Controller E-Sig: Report: MRI brain without and [...] Staff: ARCENIO LEYVA, Staff Radiologist Verified by group program manager for ARCENIO LEYVA /ARCENIO AVILA-D [facility] Sep 06, 2024 01:40 PM MRI C SPINE W & W/ O CONTRAST(FURTHER SEQUENCES): LUIS MANUEL PERDOMO [id number] -1945 M Exm Date: SEP 06, 2024@13:40 Req Phys: FRANCK TURNER Pat Loc: 5-MED/TEL/09-07-2024@06:42 Img Loc: [facility] Service: MEDICAL SERVICE [place] [id number] (Case [id number] COMPLETE) MRI C SPINE W & W/O CONTRAST(FURT(MRI Detailed) CPT:25408 Contrast Media : Gadolinium Reason for Study: SEE CLINICAL HISTORY Pharmaceutical: GADOTERIDOL 279.3MG/ML 20ML INJ, 19ml Clinical History: STATUS OF PLAIN FILMS:Not performed (Provide justification for MR W/O prior plain films below.) MRI for MS MRI Screening (Required): IMPLANTED DEVICE DOCUMENTATION IMPLANTED DEVICE DOCUMENTATION NOT FOUND Does the Conner have any Cardiac Implants? None Does the have any implanted stimulators? None Does the have cochlear implants? No Does the have Cerebral aneurysm clip(s)? I don't know Does the Conner have any shrapnel? I don't know If [...] 07, 2024 Date Verified: SEP 07, 2024 City Controller E-Sig: Report: EXAMINATION: MRI OF THE [...] Interpreting Staff: HUANG TAI Radiologist Verified by group program manager for HUANG TAI /HUANG WHEATLEYSav [facility] Sep 03, 2024 10:45 AM CHEST SINGLE(1) EW: LUIS MANUEL PERDOMO [id number] -1945 M Exm Date: SEP 03, 2024@10:45 Req Phys: FRANCK TURNER Pat Loc: 5-MED/TEL/09-03-2024@10:56 Img Loc: [facility] Service: [place] [address] (Case [id number] COMPLETE)CHEST SINGLE(1) VIEW (RAD Detailed) CPT:55252 Proc Modifiers : PORTABLE EXAM Reason for Study: Eval volume status Clinical History: Report Status: Verified Date Reported: SEP 03, 2024 Date Verified: SEP 03, 2024 City Controller E-Sig: Report: EXAMINATION: SINGLE VIEW CHEST [...] Interpreting Staff: HUANG TAI Radiologist Verified by group program manager for HUANG TAI /HUANG WHEATLEYSav [facility] Aug 29, 2024 08:[address] HEAD W/O CONT: LUIS MANUEL PERDOMO [id number] -1945 M Exm Date: AUG 29, 2024@20:28 Req Phys: FELISA COLE Loc: ED/4P-12A (Req'g Loc) Img Loc: CT SCAN Service: [place] [address] (Case [id number] COMPLETE) CT HEAD W/O CONT (CT Detailed) CPT:36843 Reason for Study: SEE CLINICAL HISTORY Clinical History: REASON FOR SEND OUT: ATTENDING PHYSICIAN NAME: New transient neurological s/s - suspected TIA HISTORY/REASON FOR EXAM: confusion Report Status: Verified Date Reported: AUG 29, 2024 Date Verified: AUG 29, 2024 City Controller E-Sig: Report: HISTORY confusion COMPARISON No [...] Staff: ABDIRAHMAN CROW, Staff Physician Verified by group program manager for ABDIRAHMAN CROW /[facility] [...] [facility] [CLIA# [id number]] [address] [place], [place] [id number] Accession [UID]: [id number] [[id number]] Received: Sep 03, 2024@14:02 Collection sample: URINE, [...] [facility] [CLIA# [id number]] [address] [place], [place] [id number] [facility] Sep 02, 2024 06:00 PM LR MICROBIOLOGY RE PORT: Reporting Lab: [facility] [CLIA# [id number]] [address] [place], [place] [id number] Accession [UID]: [id number] [[id number]] Received: Sep 02, 2024@18:07 Collection sample: BLD CULTURE BOTTLES Collection date: Sep 02, 2024 18:00 Site/Specimen: BLOOD Provider: FRANCK TURNER Comment on specimen: L HAND Test(s) ordered: CULTURE, BLOOD................ completed: Sep 08, 2024 * BACTERIOLOGY FINAL REPORT => Sep 08, 2024 08:25 TECH CODE: [id number] Bacteriology Remark(s): Blood culture status=NO GROWTH (unless notified otherwise) 09/03/2024 AEROBIC: NO GROWTH ANAEROBIC: NO GROWTH =--=--=--=--=--=--=--=--=--=-- =--=--=--=--=--=--=--=--=--=-- =--=--=--=--=--=-- Performing Laboratory: Bacteriology Report Performed By: [facility] [CLIA# [id number]] [address] [place] [phone] MAGDY CALABRESE [facility] Aug 29, 2024 10:18 PM LR MICROBIOLOGY RE PORT: Reporting Lab: [facility] [CLIA# [id number]] [address] [place] [id number] Accession [UID]: [id number] [[id number]] Received: Aug 29, 2024@22:18 Collection sample: URINE, CLEAN CATCH Collection date: Aug 29, 2024 22:18 Site/Specimen: URINE Provider: FELISA COLE Test(s) ordered: CULTURE, URINE................ completed: Aug 31, 2024 09:51 * BACTERIOLOGY FINAL REPORT => Aug 31, 2024 09:51 TECH CODE: [id number] Bacteriology Remark(s): NO GROWTH 08/30/2024 <10,000 CFU/ML. 08/31/2024 =--=--=--=--=--=--=--=--=--=-- =--=--=--=--=--=--=--=--=--=-- =--=--=--=--=--=-- Performing Laboratory: Bacteriology Report Performed By: [facility] [CLIA# [id number]] [address] [place] [id number] MAGDY CALABRESE [facility] Encounter Notes: All associated encounter notes This section contains the clinical notes associated to the Encounter. Date/Time Encounter Note(s) Provider Source Sep 13, 2024 07:28 AM ADDENDUM: LOCAL TITLE: Addendum STANDARD TITLE: ADDENDUM DATE OF NOTE: SEP 13, 2024@07:28:50 ENTRY DATE: SEP 13, 2024@07:28:51 AUTHOR: YULISSA HENDERSON EXP COSIGNER: URGENCY: STATUS: COMPLETED I concur. /rosette/ YULISSA HENDERSON APRN [facility] REGISTERED NURSE, PAULETTE Signed: 09/13/2024 07:29 Receipt Acknowledged By: 09/13/2024 13:22 /es/ Annie Laguerre RN, MSN, WOCN MASH PROCESSING OPERATOR Glacing Machine Tender --- Original Document --- 09/13/24 COMMUNITY CARE-REQUEST FOR SERVICE NOTE: Request for Services (RFS) documentation has been scanned to [facility] Community Care Consult: COMMUNITY FCRS-NFJJ-LUS-HOME HEALTH Consult No: [id number] Date scanned: Aug A Request for Service (RFS) form [id number] has been received which includes the following: Care Requested:CONTINUATION OF CARE ICD-10 Dx code: S82.401D Date [place] received request: Aug Date service required: UNK Requesting Community Provider Information: Name of Ordering Provider: YULISSA HENDERSON Office:[facility] Address, [facility], [facility]: [address] [place] [address] /rosette/ LILIAN CASE AMSA Signed: 09/13/2024 07:14 Receipt Acknowledged By: 09/13/2024 07:29 /rosette/ YULISSA HENDERSON APRN ADVANCED PRACTICE REGISTERED NURSE, [facility]SA [facility] Sep 13, 2024 07:12 AM NONVA NOTE: LOCAL TITLE: COMMUNITY CARE-REQUEST FOR SERVICE NOTE STANDARD TITLE: NONVA NOTE DATE OF NOTE: SEP 13, 2024@07:12 ENTRY DATE: SEP 13, 2024@07:12:49 AUTHOR: ZAKARIAH,LILIAN EXP COSIGNER: URGENCY: STATUS: COMPLETED COMMUNITY CARE-REQUEST FOR SERVICE NOTE Has ADDENDA Request for Services (RFS) documentation has been scanned to [employer] Community Care Consult: COMMUNITY ZVNR-[id number]-NKC-HOME HEALTH Consult No: [id number] Date scanned: Aug A Request for Service (RFS) form [id number] has been received which includes the following: Care Requested:CONTINUATION OF CARE ICD-10 Dx code: S82.401D Date [place] received request: Aug Date service required: UNK Requesting Community Provider Information: Name of Ordering Provider: YULISSA HENDERSON Office:[facility] Address, [facility], [facility]: [address] [place] [address] /rosette/ LILIAN CASE AMSA Signed: 09/13/2024 07:14 Receipt Acknowledged By: 09/13/2024 07:29 /rosette/ YULISSA HENDERSON APRN ADVANCED PRACTICE REGISTERED NURSE, PAULETTE 09/13/2024 ADDENDUM STATUS: COMPLETED I concur. /rosette/ YULISSA HENDERSON APRN ADVANCED PRACTICE REGISTERED NURSE, HB Signed: 09/13/2024 07:29 Receipt Acknowledged By: * AWAITING SIGNATURE * ANNIE LAGUERRE ZAINAB [place]-[facility]
--- OUTSIDE RECORDS SUMMARY | 2024-09-14 10:33 | XMS_ITS | Encounter Summary ---
Author Name [facility] Organization [facility] [place] Address [address] [place] [id number] Care Team Providers Care Life Underwriter Name Role Phone YULISSA HENDERSON Primary Care [...] PLAN F Mar 24, 2014 PLAN F [id number] LUIS MANUEL PERDOMO PATIENT [facility] [place] [facility] PREFERRED PROVIDER ORGANIZAT ION (PPO) [facility] Sep 21, 2012 [id number] LUIS MANUEL PERDOMO PATIENT [facility] ([id number]) PRESCRIPT ION WL3A Sep 21, 2012 [id number] LUIS MANUEL PERDOMO PATIENT MEDICARE (WNR) MEDICARE (M) PART B Sep 21, 2012 PART B [id number] NOEMI PERDOMO PATIENT MEDICARE (WNR) MEDICARE (M) PART A Jan 22, 2011 PART A [id number] NOEMI PERDOMO PATIENT MEDICARE PART D (WNR) MEDICARE (M) PART D Mar 24, 2014 PART D [id number] LUIS MANUEL PERDOMO PATIENT Selected Encounter This section includes the information on record at [place] for the Encounter. Date/Time Encounter Type Encounter Description Reason Pro vider Source Sep 14, 2024 02:33 PM Outpatient Encounter ADMIN PAT ACTIVTIES (MASNONCT) IHE Encounter Template Text not used by [place] Plan of Treatment: Future Appointments (+ 6 months) and Future Tests (+/- 45 days) The Plan of Treatment section includes future care activities for the patient from all [place] treatmentfacilities. This section includes future appointments and [...] 2024 01:30 PM AMBULATORY - SURGERY [facility] Active, Pending, and Scheduled Orders This [...] 13, 2024 01:33 PM Consult Order [facility] [place] [facility] Cons Education Program Specialist's Choice [facility] Lab Results: +/- [...] Type Comment Sep 09, 2024 12:16 PM [facility] GLUCOSE-HAND MONITOR CAPILLARY Specimen Type: CAPILLARY Comment: Test performed by: [id number] Meter #: [id number] Ordering Provider: FRANCK TURNER Report Released Date/Time: Sep 09, 2024 12:33 PM Reporting Lab: [address] [address] Performing Lab: [address] [address] GLUCOSE-HAND MONITOR 116 mg/dL H -Sep 09, 2024 06:07 AM [facility] GLUCOSE-HAND MONITOR CAPILLARY Specime n Type: CAPILLARY Comment: Test performed by: [id number] Meter #: [id number] Ordering Provider: FRANCK TURNER Report Released Date/Time: Sep 09, 2024 08:17 AM Reporting Lab: [address] [address] Performing Lab: [address] [address] GLUCOSE-HAND MONITOR 112 mg/dL H Sep 08, 2024 09:13 PM [facility] GLUCOSE-HAND MONITOR CAPILLARY Specime n Type: CAPILLARY Comment: Test performed by: [id number] Meter #: [id number] Ordering Provider: FRANCK TURNER Report Released Date/Time: Sep 08, 2024 09:31 PM Reporting Lab: [address] [address] Performing Lab: [address] [address] GLUCOSE-HAND MONITOR 107 mg/dL H Sep 08, 2024 03:49 PM [facility] GLUCOSE-HAND MONITOR CAPILLARY Specime n Type: CAPILLARY Comment: AAMIR RN notified Test performed by: [id number] Meter #: [id number] Ordering Provider: FRANCK TURNER Report Released Date/Time: Sep 08, 2024 04:33 PM Reporting Lab: [address] [address] Performing Lab: [address] [address] GLUCOSE-HAND MONITOR 162 mg/dL H Sep 08, 2024 11:43 AM [facility] GLUCOSE-HAND MONITOR CAPILLARY Specime n Type: CAPILLARY Comment: AAMIR RN notified Test performed by: [id number] Meter #: [id number] Ordering Provider: FRANCK TURNER Report Released Date/Time: Sep 08, 2024 12:03 PM Reporting Lab: [address] [address] Performing Lab: [address] [address] GLUCOSE-HAND MONITOR 133 mg/dL H Sep 08, 2024 06:13 AM [facility] GLUCOSE-HAND MONITOR CAPILLARY Specime n Type: CAPILLARY Comment: Test performed by: [id number] Meter #: [id number] Ordering Provider: FRANCK TURNER Report Released Date/Time: Sep 08, 2024 06:46 AM Reporting Lab: [address] [address] Performing Lab: [address] [address] GLUCOSE-HAND MONITOR 104 mg/dL H Sep 07, 2024 07:59 PM [facility] GLUCOSE-HAND MONITOR CAPILLARY Specime n Type: CAPILLARY Comment: Test performed by: [id number] Meter #: [id number] Ordering Provider: FRANCK TURNER Report Released Date/Time: Sep 07, 2024 09:05 PM Reporting Lab: [address] [address] Performing Lab: [address] [address] GLUCOSE-HAND MONITOR 107 mg/dL H Sep 07, 2024 04:39 PM [facility] GLUCOSE-HAND MONITOR CAPILLARY Specime n Type: CAPILLARY Comment: Test performed by: [id number] Meter #: [id number] Ordering Provider: FRANCK TURNER Report Released Date/Time: Sep 07, 2024 05:09 PM Reporting Lab: [address] [address] Performing Lab: [address] [address] GLUCOSE-HAND MONITOR 105 mg/dL H Sep 07, 2024 11:41 AM [facility] GLUCOSE-HAND MONITOR CAPILLARY Specime n Type: CAPILLARY Comment: Test performed by: [id number] Meter #: [id number] Ordering Provider: FRANCK TURNER Report Released Date/Time: Sep 07, 2024 12:41 PM Reporting Lab: [address] [address] Performing Lab: [address] [address] GLUCOSE-HAND MONITOR 144 mg/dL H Sep 07, 2024 05:56 AM [facility] GLUCOSE-HAND MONITOR CAPILLARY Specime n Type: CAPILLARY Comment: Test performed by: [id number] Meter #: [id number] Ordering Provider: FRANCK TURNER Report Released Date/Time: Sep 07, 2024 06:31 AM Reporting Lab: [address] [address] Performing Lab: [address] [address] GLUCOSE-HAND MONITOR 96 mg/dL Sep 06, 2024 08:10 PM [facility] GLUCOSE-HAND MONITOR CAPILLARY Specime n Type: CAPILLARY Comment: Test performed by: [id number] Meter #: [id number] Ordering Provider: FRANCK TURNER Report Released Date/Time: Sep 06, 2024 08:52 PM Reporting Lab: [address] [address] Performing Lab: [address] [address] GLUCOSE-HAND MONITOR 124 mg/dL H Sep 06, 2024 04:27 PM [facility] GLUCOSE-HAND MONITOR CAPILLARY Specime n Type: CAPILLARY Comment: Test performed by: [id number] Meter #: [id number] Ordering Provider: FRANCK TURNER Report Released Date/Time: Sep 06, 2024 05:15 PM Reporting Lab: [address] [address] Performing Lab: [address] [address] GLUCOSE-HAND MONITOR 107 mg/dL H Sep 06, 2024 12:12 PM [facility] GLUCOSE-HAND MONITOR CAPILLARY Specime n Type: CAPILLARY Comment: Test performed by: [id number] Meter #: [id number] Ordering Provider: FRANCK TURNER Report Released Date/Time: Sep 06, 2024 12:29 PM Reporting Lab: [address] [address] Performing Lab: [address] [address] GLUCOSE-HAND MONITOR 181 mg/dL H Sep 06, 2024 06:13 AM [facility] GLUCOSE-HAND MONITOR CAPILLARY Specime n Type: CAPILLARY Comment: Test performed by: [id number] Meter #: [id number] Ordering Provider: FRANCK TURNER Report Released Date/Time: Sep 06, 2024 06:36 AM Reporting Lab: [address] [address] Performing Lab: [address] [address] GLUCOSE-HAND MONITOR 102 mg/dL H Sep 05, 2024 08:47 PM [facility] GLUCOSE-HAND MONITOR CAPILLARY Specime n Type: CAPILLARY Comment: Test performed by: [id number] Meter #: [id number] Ordering Provider: FRANCK TURNER Report Released Date/Time: Sep 06, 2024 02:13 AM Reporting Lab: [address] [address] Performing Lab: [address] [address] GLUCOSE-HAND MONITOR 103 mg/dL H Sep 05, 2024 04:40 PM [facility] GLUCOSE-HAND MONITOR CAPILLARY Specime n Type: CAPILLARY Comment: AAMIR RN notified Test performed by: [id number] Meter #: [id number] Ordering Provider: FRANCK TURNER Report Released Date/Time: Sep 05, 2024 05:11 PM Reporting Lab: [address] [address] Performing Lab: [address] [address] GLUCOSE-HAND MONITOR 113 mg/dL H Sep 05, 2024 12:06 PM [facility] GLUCOSE-HAND MONITOR CAPILLARY Specime n Type: CAPILLARY Comment: Test performed by: [id number] Meter #: [id number] Ordering Provider: FRANCK TURNER Report Released Date/Time: Sep 05, 2024 12:23 PM Reporting Lab: [address] [address] Performing Lab: [address] [address] GLUCOSE-HAND MONITOR 115 mg/dL H Sep 05, 2024 06:26 AM [facility] GLUCOSE-HAND MONITOR CAPILLARY Specime n Type: CAPILLARY Comment: AAMIR Correction Dose Test performed by: [id number] Meter #: [id number] Ordering Provider: FRANCK TURNER Report Released Date/Time: Sep 05, 2024 06:43 AM Reporting Lab: [place] [phone] Performing Lab: [address] [address] GLUCOSE-HAND MONITOR 111 mg/dL H Sep 04, 2024 08:59 PM [facility] GLUCOSE-HAND MONITOR CAPILLARY Specime n Type: CAPILLARY Comment: AAMIR RN notified Test performed by: [id number] Meter #: [id number] Ordering Provider: FRANCK TURNER Report Released Date/Time: Sep 04, 2024 09:36 PM Reporting Lab: [address] [address] Performing Lab: [address] [address] GLUCOSE-HAND MONITOR 123 mg/dL H Sep 04, 2024 04:41 PM [facility] GLUCOSE-HAND MONITOR CAPILLARY Specime n Type: CAPILLARY Comment: AAMIR RN notified Test performed by: [id number] Meter #: [id number] Ordering Provider: FRANCK TURNER Report Released Date/Time: Sep 04, 2024 05:03 PM Reporting Lab: [address] [address] Performing Lab: [address] [address] GLUCOSE-HAND MONITOR 118 mg/dL H Sep 04, 2024 12:36 PM [facility] GLUCOSE-HAND MONITOR CAPILLARY Specime n Type: CAPILLARY Comment: AAMIR RN notified Test performed by: [id number] Meter #: [id number] Ordering Provider: FRANCK TURNER Report Released Date/Time: Sep 04, 2024 12:53 PM Reporting Lab: [place] [address] Performing Lab: [place] [address] GLUCOSE-HAND MONITOR 129 mg/dL H 71-99 Sep 04, 2024 12:03 PM [facility] RESPIRATORY VIRUS PANEL (BIOFIRE) NASOPHARYN X Specimen Type: NASOPHARYNX Comment: ~For Test: RESPIRATORY VIRUS PANEL (BIOFIRE) ~ORDER READ BACK TO: FRANCK TURNER 09/04/24@11:30 Ordering Provider: FRANCK TURNER Report Released Date/Time: Sep 04, 2024 11:33 AM Reporting Lab: [place] [phone] Performing Lab: [place] [address] ADENOVIRUS (BIOFIRE) Not Detected -Not D etected [...] Sep 03, 2024 11:10 AM Reporting Lab: [address] [address] Performing Lab: [address] [place] [address] MAGNESIUM 1.8 mg/dL 1.6-2.6 Sep 04, 2024 [...] Sep 03, 2024 11:10 AM Reporting Lab: [address] [address] Performing Lab: [address] [address] CREATININE 0.75 mg/dL 0.72-1.25 UREA NITROGEN 13 [...] n Type: CAPILLARY Comment: Test performed by: [id number] Meter #: [id number] Ordering Provider: FRANCK TURNER Report Released Date/Time: Sep 04, 2024 06:28 AM Reporting Lab: [address] Performing Lab: [address] GLUCOSE-HAND MONITOR 114 mg/dL H 71-99 Sep 03, 2024 05:19 PM [facility] GLUCOSE-HAND MONITOR CAPILLARY Specime n Type: CAPILLARY Comment: Test performed by: [id number] Meter #: [id number] Ordering Provider: FRANCK TURNER Report Released Date/Time: Sep 03, 2024 05:37 PM Reporting Lab: [address] [address] Performing Lab: [address] [address] GLUCOSE-HAND MONITOR 124 mg/dL H 71-99 Sep 03, 2024 04:41 PM [facility] GLUCOSE-HAND MONITOR CAPILLARY Specime n Type: CAPILLARY Comment: Test performed by: [id number] Meter #: [id number] Ordering Provider: FRANCK TURNER Report Released Date/Time: Sep 03, 2024 06:09 PM Reporting Lab: [address] [address] Performing Lab: [address] GLUCOSE-HAND MONITOR 112 mg/dL H 71-99 Sep 03, 2024 01:35 PM [facility] CREATININE URINE Specimen Type: URINE Comment: ~Altered mental status with no identifiable cause Ordering Provider: FRANCK TURNER Report Released Date/Time: Sep 02, 2024 04:44 PM Reporting Lab: [facility] [address] [facility] [address] Performing Lab: [address] [address] CREATININE 150.9 mg/dL Sep 03, 2024 01:35 PM [facility] URINE LYTES URINE Specimen Type : URINE Comment: ~Altered mental status with no identifiable cause Ordering Provider: FRANCK TURNER Report Released Date/Time: Sep 02, 2024 04:44 PM Reporting Lab: [address] [address] Performing Lab: [address] [address] SODIUM 130 mmol/L POTASSIUM 47.6 mmol/L CHLORIDE 137 mmol/L Sep 03, 2024 01:35 PM [facility] UREA NITROGEN URINE Specimen Type : URINE Comment: ~Altered mental status with no identifiable cause Ordering Provider: FRANCK TURNER Report Released Date/Time: Sep 02, 2024 04:44 PM Reporting Lab: [address] [address] Performing Lab: [address] [address] UREA NITROGEN 320 mg/dL Sep 03, 2024 01:35 PM [facility] OSMOLALITY URINE Specimen Type: URINE Comment: ~Altered mental status with no identifiable cause Ordering Provider: FRANCK TURNER Report Released Date/Time: Sep 02, 2024 04:44 PM Reporting Lab: [address] [address] Performing Lab: [address] [address] OSMOLALITY 522 mosm/kg 38-1400 Sep 03, 2024 01:35 PM [facility] URINALYSIS WITH REFLEX TO CULTURE URINE Specimen Type: URINE Comment: ~Altered mental status with no identifiable cause Ordering Provider: FRANCK TURNER Report Released Date/Time: Sep 02, 2024 04:44 PM Reporting Lab: [address] [address] Performing Lab: [address] [address] URINE COLOR Yellow Colorless-Yellow APPEARANCE CLOUDY H [...] 0-28 Sep 03, 2024 11:58 AM [facility] GLUCOSE-HAND MONITOR CAPILLARY Specime n Type: CAPILLARY Comment: AAMIR RN notified Test performed by: [id number] Meter #: [id number] Ordering Provider: FRANCK TURNER Report Released Date/Time: Sep 03, 2024 12:15 PM Reporting Lab: [address] [address] Performing Lab: [address] [address] GLUCOSE-HAND MONITOR 135 mg/dL H Sep 03, 2024 07:09 AM [facility] GLUCOSE-HAND MONITOR CAPILLARY Specime n Type: CAPILLARY Comment: Test performed by: [id number] Meter #: [id number] Ordering Provider: FRACNK TURNER Report Released Date/Time: Sep 03, 2024 07:26 AM Reporting Lab: [address] [address] Performing Lab: [address] [address] GLUCOSE-HAND MONITOR 120 mg/dL H Sep 03, [...] Sep 02, 2024 04:29 PM Reporting Lab: [address] [address] Performing Lab: [address] [address] MAGNESIUM 1.7 mg/dL 1.6-2.6 Sep 03, 2024 07:05 AM [facility] CBC/PLT BLOOD Specimen Type: BLOOD No comment entered. Ordering Provider: FRANCK TURNER Report Released Date/Time: Sep 02, 2024 04:29 PM Reporting Lab: [facility] [address] [facility] [address] Performing Lab: [address] [address] WBC 6.9 10*3/uL 5.0-10.0 RBC 3.48 10*6/uL [...] Sep 02, 2024 04:29 PM Reporting Lab: [address] [address] Performing Lab: [address] [address] CREATININE 0.82 mg/dL 0.72-1.25 UREA NITROGEN 12 [...] BLOOD Comment: Prediabetes: 5.7%-6.4% Diabetes: >= 6.5% [place] guidelines for A1c interpretation: Glycemic control [...] 8.73 and 9.27. Ref: https://ngsp.org/CAPdata.asp. The in-house Codenomicon-1jiajie D-100 analyzer has a historical CV <= 2%. Contact the laboratory for further performance characteristics of this assay. Ordering Provider: FRANCK TURNER Report Released Date/Time: Sep 02, 2024 04:29 PM Reporting Lab: [address] [address] Performing Lab: [place] [phone] GLYCOHEMOGLOBIN 5.6 4.4-5.6 Sep 03, 2024 07:05 AM [facility] OSMOLALITY SERUM Specimen Type: SERUM No comment entered. Ordering Provider: FRANCK TURNER Report Released Date/Time: Sep 02, 2024 04:44 PM Reporting Lab: [address] [address] Performing Lab: [address] [address] OSMOLALITY 271 mosm/kg L 280-300 Sep 02, 2024 08:15 PM [facility] GLUCOSE-HAND MONITOR CAPILLARY Specime n Type: CAPILLARY Comment: AAMIR DEXTER notified Test performed by: [id number] Meter #: [id number] Ordering Provider: FRANCK TURNER Report Released Date/Time: Sep 02, 2024 08:57 PM Reporting Lab: [address] [address] Performing Lab: [address] [address] GLUCOSE-HAND MONITOR 126 mg/dL H 71-99 Sep [...] Sep 02, 2024 05:12 PM Reporting Lab: [address] [address] Performing Lab: [address] [address] MRSA SURVL NARES DNA Negative Negative Sep 02, 2024 05:36 PM [facility] GLUCOSE-HAND MONITOR CAPILLARY Specime n Type: CAPILLARY Comment: Test performed by: [id number] Meter #: [id number] Ordering Provider: FRANCK TURNER Report Released Date/Time: Sep 02, 2024 05:53 PM Reporting Lab: [address] [address] Performing Lab: [address] [address] GLUCOSE-HAND MONITOR 127 mg/dL H 71-99 Aug 29, 2024 10:04 PM [facility] URINALYSIS WITH REFLEX TO CULTURE URINE Specimen Type: URINE Comment: ~For Test: URINALYSIS WITH REFLEX TO CULTURE ~REORDER Ordering Provider: FELISA COLE Report Released Date/Time: Aug 29, 2024 09:36 PM Reporting Lab: [address] [address] Performing Lab: [address] [address] URINE COLOR Yellow Colorless-Yellow APPEARANCE Clear Clear [...] /[LPF] 0-28 Aug 29, 2024 08:32 PM [facility] HIGH SENSITIVITY TROPONIN I PLASMA Specimen [...] I information resource can be reached in [facility] in the Tools menu, under [...] Aug 29, 2024 07:55 PM Reporting Lab: [address] [address] Performing Lab: [address] [address] HIGH SENSITIVITY TROPONIN I 7 4-35 Aug 29, 2024 08:32 PM [facility] CBC/PLT BLOOD Specimen Type: BLOOD No comment entered. Ordering Provider: FELISA COLE Report Released Date/Time: Aug 29, 2024 07:55 PM Reporting Lab: [address] [address] Performing Lab: [address] [address] WBC 11.2 10*3/uL H 5.0-10.0 RBC 3.97 [...] I information resource can be reached in [facility] in the Tools menu, under [...] Aug 29, 2024 07:55 PM Reporting Lab: [address] [address] Performing Lab: [address] [address] CREATININE 0.85 mg/dL 0.72-1.25 UREA NITROGEN 15 [...] 2024 ADVANCE DIRECTIVE DISCUSSION [facility] Radiology Reports: +/- 30 [...] BRAIN W & W/O: LUIS MANUEL PERDOMO [id number] -1945 M Exm Date: SEP 06, 2024@13:40 Req Phys: FRANCK TURNER [facility] Loc: 5-MED/TEL/09-06-2024@19:09 Img Loc: [facility] Service: [place] [address] (Case [id number] COMPLETE) MRI BRAIN W & W/O (MRI Detailed) CPT:14546 Contrast Media : Gadolinium Reason for Study: SEE CLINICAL HISTORY Pharmaceutical: GADOTERIDOL 279.3MG/ML 20ML INJ, 19ml Clinical History: MRI Screening (Required): IMPLANTED DEVICE DOCUMENTATION IMPLANTED DEVICE DOCUMENTATION NOT FOUND Does the [place] have any Cardiac Implants? None Does the have any implanted stimulators? None Does the [place] have cochlear implants? No Does the [place] have Cerebral aneurysm clip(s)? I don't know Does the [place] have any shrapnel? I don't know If yes, where in your body? Please list other implants not listed above: MRI table has a weight limit of 551 lbs. [place]'s Weight: *212 lb [96.16 kg] (09/04/2024 05:19) Is this patient claustrophobic?: No REASON FOR EXAM:MULTIPLE SCLEROSIS (indicate suspected or established) PERTINENT PATIENT HISTORY: MS c/f for flare Risk factors for GADOLINIUM NEPHROGENIC SYSTEMIC SCLEROSIS: Report Status: Verified Date Reported: SEP 06, 2024 Date Verified: SEP 06, 2024 Core Driller E-Sig: Report: MRI brain without and with [...] Staff: ARCENIO LEYVA, Staff Radiologist Verified by night court magistrate for ARCENIO LEYVA /ARCENIO AVILA-D [facility] Sep 06, 2024 01:40 PM MRI C SPINE W & W/ O CONTRAST(FURTHER SEQUENCES): LUIS MANUEL PERDOMO [id number] -1945 M Exm Date: SEP 06, 2024@13:40 Req Phys: FRANCK TURNER Pat Loc: 5-MED/TEL/09-07-2024@06:42 Img Loc: [facility] Service: [facility] SERVICE [place] [id number] (Case [id number] COMPLETE) MRI C SPINE W & W/O CONTRAST(FURT(MRI Detailed) CPT:54333 Contrast Media : Gadolinium Reason for Study: SEE CLINICAL HISTORY Pharmaceutical: GADOTERIDOL 279.3MG/ML 20ML INJ, 19ml Clinical History: STATUS OF PLAIN FILMS:Not performed (Provide justification for MR W/O prior plain films below.) MRI for MS MRI Screening (Required): IMPLANTED DEVICE DOCUMENTATION IMPLANTED DEVICE DOCUMENTATION NOT FOUND Does the [place] have any Cardiac Implants? None Does the have any implanted stimulators? None Does the have cochlear implants? No Does the have Cerebral aneurysm clip(s)? I don't know Does the [place] have any shrapnel? I don't know If [...] 07, 2024 Date Verified: SEP 07, 2024 Core Driller E-Sig: Report: EXAMINATION: MRI OF THE CERVICAL [...] Interpreting Staff: HUANG TAI Radiologist Verified by night court magistrate for HUANG TAI /HUANG WHEATLEYSav [facility] Sep 03, 2024 10:45 AM CHEST SINGLE(1) EW: LUIS MANUEL PERDOMO [id number] -1945 M Exm Date: SEP 03, 2024@10:45 Req Phys: FRANCK TURNER Pat Loc: 5-MED/TEL/09-03-2024@10:56 Img Loc: [facility] RADIOLOGY Service: [place] [address] (Case [id number] COMPLETE)CHEST SINGLE(1) VIEW (RAD Detailed) CPT:89898 Proc Modifiers : PORTABLE EXAM Reason for Study: Eval volume status Clinical History: Report Status: Verified Date Reported: SEP 03, 2024 Date Verified: SEP 03, 2024 Core Driller E-Sig: Report: EXAMINATION: SINGLE VIEW CHEST CLINICAL [...] Interpreting Staff: HUANG TAI Radiologist Verified by night court magistrate for HUANG TAI /HUANG WHEATLEYSav [facility] Aug 29, 2024 08:[address] HEAD W/O CONT: LUIS MANUEL PERDOMO [id number] -1945 M Exm Date: AUG 29, 2024@20:28 Req Phys: FELISA COLE Loc: ED/4P-12A (Req'g Loc) Img Loc: CT SCAN Service: [place] [address] (Case [id number] COMPLETE) CT HEAD W/O CONT (CT Detailed) CPT:52910 Reason for Study: SEE CLINICAL HISTORY Clinical History: REASON FOR SEND OUT: ATTENDING PHYSICIAN NAME: New transient neurological s/s - suspected TIA HISTORY/REASON FOR EXAM: confusion Report Status: Verified Date Reported: AUG 29, 2024 Date Verified: AUG 29, 2024 Core Driller E-Sig: Report: HISTORY confusion COMPARISON No prior [...] Staff: ABDIRAHMAN CROW, Staff Physician Verified by night court magistrate for ABDIRAHMAN CROW /ABDIRAHMAN [facility] Pathology [...] Lab: [facility] [CLIA# [id number]] [address] [place], [place] [id number] Accession [UID]: [id number] [[id number]] Received: Sep 03, 2024@14:02 Collection sample: URINE, [...] By: [facility] [CLIA# [id number]] [address] [place], [place] [id number] [facility] Sep 02, 2024 06:00 PM LR MICROBIOLOGY RE PORT: Reporting Lab: [facility] [CLIA# [id number]] [address] [place], [place] [id number] Accession [UID]: [id number] [[id number]] Received: Sep 02, 2024@18:07 Collection sample: BLD CULTURE BOTTLES Collection date: Sep 02, 2024 18:00 Site/Specimen: BLOOD Provider: FRANCK TURNER Comment on specimen: L HAND Test(s) ordered: CULTURE, BLOOD................ completed: Sep 08, 2024 * BACTERIOLOGY FINAL REPORT => Sep 08, 2024 08:25 TECH CODE: [id number] Bacteriology Remark(s): Blood culture status=NO GROWTH (unless notified otherwise) 09/03/2024 AEROBIC: NO GROWTH ANAEROBIC: NO GROWTH =--=--=--=--=--=--=--=--=--=-- =--=--=--=--=--=--=--=--=--=-- =--=--=--=--=--=-- Performing Laboratory: Bacteriology Report Performed By: [facility] [CLIA# [id number]] [address] [place] [id number] MAGDY [facility] Aug 29, 2024 10:18 PM LR MICROBIOLOGY RE [place]: Reporting Lab: [facility] [CLIA# [id number]] [address] [place] [id number] Accession [UID]: [id number] [[id number]] Received: Aug 29, 2024@22:18 Collection sample: URINE, CLEAN CATCH Collection date: Aug 29, 2024 22:18 Site/Specimen: URINE Provider: FELISA COLE Test(s) ordered: CULTURE, URINE................ completed: Aug 31, 2024 09:51 * BACTERIOLOGY FINAL REPORT => Aug 31, 2024 09:51 TECH CODE: [id number] Bacteriology Remark(s): NO GROWTH 08/30/2024 <10,000 CFU/ML. 08/31/2024 =--=--=--=--=--=--=--=--=--=-- =--=--=--=--=--=--=--=--=--=-- =--=--=--=--=--=-- Performing Laboratory: Bacteriology Report Performed By: [facility] [CLIA# [id number]] [address] [place] [id number] [facility] Encounter Notes: All associated encounter notes This section contains the clinical notes associated to the Encounter. Date/Time Encounter Note(s) Provider Source Sep 02, 2024 02:33 PM NONVA NOTE: LOCAL TITLE: OUTSIDE MEDICAL RECORD-OTHER STANDARD TITLE: NONVA NOTE DATE OF NOTE: SEP 02, 2024@14:33 ENTRY DATE: SEP 14, 2024@14:33:37 AUTHOR: BINH GONCALVES EXP COSIGNER: URGENCY: STATUS: COMPLETED The scanned image may be viewed in [employer]. /rosette/ BINH GONCALVES MANAGER IT TRAINING Signed: 09/14/2024 14:34 BINH GONCALVES-Sav [facility]
[2024-09-22] VITALS (14 sets, daily range): BP systolic 109–155; BP diastolic 48–97; PULSE 67–73; RESP 14–21; TEMP 36.8; O2SAT 94–96; BMI 38.4
--- OUTSIDE RECORDS SUMMARY | 2024-09-22 05:01 | XMS_ITS | Continuity of Care Document ---
Author Name [facility] Organization [facility] Care Team Providers Care Client Advocate Name Role Phone [facility] Unavailable Unavailable Problems Combined list of problems from Department of Defense and [facility] Affairs facilities. It does not include entries that were removed or entered in error. Problem Status Onset Date Problem Type Date of Resolution Comments Source Age related macular degeneration Active Condition [facility] Carcinoma of prostate Active Condition [facility] Closed fracture of shaft of right fibula Active Condition [facility] Constipation Active Condition [facility] Essential hypertension Active Condition [facility] Gastroesophageal reflux disease without esophagitis Active [facility] Hyperlipidemia Active Condition [place] [facility] Incontinence Active Condition [facility] Multiple sclerosis Active Condition [facility] Pain of right knee joint Active Condition [facility] Type 2 diabetes mellitus Active Condition [facility] Diagnosis: ICD-10-CM G35 Multiple sclerosis Active Diagnosis [facility] Diagnosis: ICD-10-CM Z75.8 Oth prob related to medical facilities and ot health care Active Diagnosis [facility] Diagnosis: ICD-10-CM Z71.81 Spiritual or sabianist counseling Active [facility] Diagnosis: ICD-10-CM M62.81 Muscle weakness (generalized) Active Diagnosis [facility] Diagnosis: ICD-10-CM Z51.81 Encounter for therapeutic drug level monitoring [facility] Diagnosis: ICD-10-CM R26.2 Difficulty in walking, not elsewhere classified Active Diagnosis [place] [facility] Diagnosis: ICD-10-CM R13.10 Dysphagia, unspecified Active Diagnosis [facility] Diagnosis: ICD-10-CM Z75.1 Person awaiting admission to adequate facility elsewhere Active Diagnosis [facility] Admit Reason: chf/pnumonia Active Diagnosis [facility] Diagnosis: ICD-10-CM I10 Essential (primary) hypertension Active Diagnosis [facility] Diagnosis: ICD-10-CM Z65.9 Problem related to unspecified psychosocial circumstances Active Diagnosis [facility] Diagnosis: ICD-10-CM Z79.899 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 Active Diagnosis [facility] Diagnosis: ICD-10-CM K21.9 Gastro-esophageal reflux disease without esophagitis Active Diagnosis [place] [facility] Diagnosis: ICD-10-CM M25.561 Pain in right knee Active Diagnosis [facility] Diagnosis: ICD-10-CM S82.401A Unsp fracture of shaft of right fibula, init for clos fx Active Diagnosis [facility] Diagnosis: ICD-10-CM Z75.5 Holiday relief care Active Diagnosis [facility] Diagnosis: ICD-10-CM E66.09 Other obesity due to excess calories Active Diagnosis [facility] Diagnosis: ICD-10-CM Z71.2 Person consulting for explanation of exam or test findings Active Diagnosis [facility] Medications Combined list of outpatient medications from Department of Defense and [facility] Affairs facilities.Medications provided include 1) outpatient medications from the last 15 months, and 2) patient-reported medications. Medication Details Route Status Patient Instructions Prescription Expires Prescription Number Last Dispense Date Ordering Provider Order Date Order Qty Source CLOTRIMAZOL E 1% CREAM,TOP APPLY SMALL AMOUNT TO AFFECTED AREA THREE TIMES A DAY NEEDED FOR FUNGAL INFECTIO N APPLY TO GROIN RASH TOPICA L DISCONT INUED BY PROVIDE R 05/19/2025 [id number] FLO HENDERSON 2024 60 [place] [facility] DICLOFENAC NA 1% GEL,TOP APPLY 2 GRAM STRIP TO AFFECTED AREA EVERY 6 HOURS NEEDED FOR PAIN APPLY TO RIGHT KNEE TOPICA L DISCONT INUED BY PROVIDE R 05/19/2025 [id number] 5 FLO HENDERSON 2024 200 [place] [facility] HYDROPHILIC (EQV EUCERIN) CREAM,TOP APPLY SMALL AMOUNT TO AFFECTED AREA NEEDED FOR DRY SKIN TOPICA L DISCONT INUED BY PROVIDE R 05/19/2025 [id number] 5 FLO HENDERSON 2024 454 [place] IPRATROPIUM BR 0.03% SOLN,SPRAY, NASAL SPRAY 1 SPRAY IN NOSE WITH MEALS FOR NASAL ALLERGIE S NASAL DISCONT INUED BY PROVIDE R 05/19/2025 [id number] 5 FLO HENDERSON 2024 30 [place] LEUPROLIDE ACETATE (ELIGARD) 45MG (6 MONTH) INJ,SUSP,LA 45MG (1 DOSE) UNDER THE SKIN EVERY 6 MONTHS SUBCUT ANEOUS ACTIVE DO AMANDA MARIN N 2024 [facility] MELOXICAM 7.5MG TAB TAKE ONE TABLET BY MOUTH DAILY FOR PAIN OR INFLAMMA TION -TAKE WITH FOOD OR MILK ORAL DISCONT INUED BY PROVIDE R 05/01/2025 [id number] 5 FLO HENDERSON 2024 90 [place] Immunizations Combined list of available immunizations from the Department of Defense and Veterans Affairs facilities. Immunization Series Date Given Administered By Site Reaction Lot Number CVX Code Drug Environmental Sciences Professor Status Comments Source INFLUENZA, UNSPECIFIED FORMULATION 2023 88 complet ed HISTORICA L INFORMATI ON - FROM PATIENT'S WRITTEN RECORD, [place] [facility] COVID-19 (MODERNA), MRNA, LNP-S, PF, 50 MCG/0.5 ML (AGES 12+ YEARS) 6 2022 312 complet ed HISTORICA L INFORMATI ON - FROM OTHER REGISTRY, [place] [facility] INFLUENZA, HIGH-DOSE, QUADRIVALENT, PF 1 2022 197 complet ed HISTORICA L INFORMATI ON - FROM OTHER REGISTRY, [place] [facility] COVID-19 (PFIZER), MRNA, LNP-S, BIVALENT, PF, 30 MCG/0.3 ML DOSE 5 2021 300 complet ed HISTORICA L INFORMATI ON - FROM OTHER REGISTRY, [place] [facility] COVID-19 (BitePal), MRNA, LNP-S, PF, 30 MCG/0.3 ML DOSE, HERMAN-SUCROSE (AGES 12+ YEARS) 4 2021 217 complet ed HISTORICA L INFORMATI ON - FROM OTHER REGISTRY, [place] [facility] COVID-19 (PFIZER), MRNA, LNP-S, PF, 30 MCG/0.3 ML DOSE 3 2020 208 complet ed HISTORICA L INFORMATI ON - FROM OTHER REGISTRY, [place] [facility] SARS-COV-2 (COVID-19) VACCINE,UNSPE CIFIED 4 2020 213 complet ed HISTORICA L INFORMATI ON - FROM OTHER REGISTRY, [place] [facility] SARS-COV-2 (COVID-19) VACCINE,UNSPE CIFIED 3 2020 213 complet ed HISTORICA L INFORMATI ON - FROM OTHER REGISTRY, [place] [facility] COVID-19 (BitePal), MRNA, LNP-S, PF, 30 MCG/0.3 ML DOSE 2 2020 208 complet ed HISTORICA L INFORMATI ON - FROM OTHER REGISTRY, [place] [facility] COVID-19 (PFIZER), MRNA, LNP-S, PF, 30 MCG/0.3 ML DOSE 1 2020 208 complet ed HISTORICA L INFORMATI ON - FROM OTHER REGISTRY, [place] [facility] INFLUENZA, SPLIT VIRUS, QUADRIVALENT, PRESERVATIVE 3 2019 158 complet ed HISTORICA L INFORMATI ON - FROM OTHER REGISTRY, [place] [facility] ZOSTER RECOMBINANT 1 2018 187 complet ed HISTORICA L INFORMATI ON - FROM OTHER REGISTRY, [place] [facility] INFLUENZA, SPLIT VIRUS, QUADRIVALENT, PRESERVATIVE 2 2018 158 complet ed HISTORICA L INFORMATI ON - FROM OTHER REGISTRY, [place] [facility] HEPB-CPG 2 2018 189 complet ed HISTORICA L INFORMATI ON - FROM OTHER REGISTRY, [place] [facility] HEPB-CPG 1 2018 189 complet ed HISTORICA L INFORMATI ON - FROM OTHER REGISTRY, [place] [facility] HE[facility] A, ADULT 2 2018 52 complet ed HISTORICA L INFORMATI ON - FROM OTHER REGISTRY, [place] [facility] HEP A, ADULT 1 2017 52 complet ed HISTORICA L INFORMATI ON - FROM OTHER REGISTRY, [place] [facility] INFLUENZA, SPLIT VIRUS, QUADRIVALENT, PRESERVATIVE 1 2017 158 complet ed HISTORICA L INFORMATI ON - FROM OTHER REGISTRY, [place] [facility] HEP A, UNSPECIFIED FORMULATION 1 2017 85 complet ed HISTORICA L INFORMATI ON - FROM OTHER REGISTRY, [place] [facility] PNEUMOCOCCAL, UNSPECIFIED FORMULATION 2016 109 complet ed HISTORICA L INFORMATI ON - FROM OTHER REGISTRY, [facility] Results Combined list of recent chemistry, hematology and other laboratory results from Department of Defense and Veterans Affairs, ranging from 15 months to all on record, depending upon the facility. Order Name Results Value Reference Range Date Interpretation Specimen Comments Source GLUCOSE-H AND MONITOR GLUCOSE [MASS/VOLUM E] IN BLOOD BY AUTOMATED TEST STRIP 116 mg/dL 71 - 99 09/09 H Specimen Type: CAPILLARY Comment: Test performed by: [id number] Meter #: [id number] Ordering Provider: FRANCK TURNER Report Released Date/Time: Sep 09, 2024 12:33 PM Reporting Lab: [address] [address] Performing Lab: [address] [address] [place] GLUCOSE-H AND MONITOR GLUCOSE [MASS/VOLUM E] IN BLOOD BY AUTOMATED TEST STRIP 112 mg/dL 71 - 99 09/09 H Specimen Type: CAPILLARY Comment: Test performed by: [id number] Meter #: [id number] Ordering Provider: FRANCK TURNER Report Released Date/Time: Sep 09, 2024 08:17 AM Reporting Lab: [address] [address] Performing Lab: [address] [address] [place] [facility] GLUCOSE-H AND MONITOR GLUCOSE [MASS/VOLUM E] IN BLOOD BY AUTOMATED TEST STRIP 107 mg/dL 71 - 99 09/08 H Specimen Type: CAPILLARY Comment: Test performed by: [id number] Meter #: [id number] Ordering Provider: FRANCK TURNER Report Released Date/Time: Sep 08, 2024 09:31 PM Reporting Lab: [address] [address] Performing Lab: [address] [address] [place] GLUCOSE-H AND MONITOR GLUCOSE [MASS/VOLUM E] IN BLOOD BY AUTOMATED TEST STRIP 162 mg/dL 71 - 99 09/08 H Specimen Type: CAPILLARY Comment: [facility] RN notified Test performed by: [id number] Meter #: [id number] Ordering Provider: FRANCK TURNER Report Released Date/Time: Sep 08, 2024 04:33 PM Reporting Lab: [place] [id number] Performing Lab: [place] [id number] [place] GLUCOSE-H AND MONITOR GLUCOSE [MASS/VOLUM E] IN BLOOD BY AUTOMATED TEST STRIP 133 mg/dL 71 - 99 09/08 H Specimen Type: CAPILLARY Comment: AAMIR RN notified Test performed by: [id number] Meter #: [id number] Ordering Provider: FRANCK TURNER Report Released Date/Time: Sep 08, 2024 12:03 PM Reporting Lab: [address] [address] Performing Lab: [address] [address] [place] GLUCOSE-H AND MONITOR GLUCOSE [MASS/VOLUM E] IN BLOOD BY AUTOMATED TEST STRIP 104 mg/dL 71 - 99 09/08 H Specimen Type: CAPILLARY Comment: Test performed by: [id number] Meter #: [id number] Ordering Provider: FRANCK TURNER Report Released Date/Time: Sep 08, 2024 06:46 AM Reporting Lab: [address] [address] Performing Lab: [address] [address] [place] [facility] GLUCOSE-H AND MONITOR GLUCOSE [MASS/VOLUM E] IN BLOOD BY AUTOMATED TEST STRIP 107 mg/dL 71 - 99 09/07 H Specimen Type: CAPILLARY Comment: Test performed by: [id number] Meter #: [id number] Ordering Provider: FRANCK TURNER Report Released Date/Time: Sep 07, 2024 09:05 PM Reporting Lab: [address] [address] Performing Lab: [address] [address] [facility] GLUCOSE-H AND MONITOR GLUCOSE [MASS/VOLUM E] IN BLOOD BY AUTOMATED TEST STRIP 105 mg/dL 71 - 99 09/07 H Specimen Type: CAPILLARY Comment: Test performed by: [id number] Meter #: [id number] Ordering Provider: FRANCK TURNER Report Released Date/Time: Sep 07, 2024 05:09 PM Reporting Lab: [address] [address] Performing Lab: [address] [address] [facility] GLUCOSE-H AND MONITOR GLUCOSE [MASS/VOLUM E] IN BLOOD BY AUTOMATED TEST STRIP 144 mg/dL 71 - 99 09/07 H Specimen Type: CAPILLARY Comment: Test performed by: [id number] Meter #: [id number] Ordering Provider: FRANCK TURNER Report Released Date/Time: Sep 07, 2024 12:41 PM Reporting Lab: [address] [address] Performing Lab: [address] [address] [facility] GLUCOSE-H AND MONITOR GLUCOSE [MASS/VOLUM E] IN BLOOD BY AUTOMATED TEST STRIP 96 mg/dL 71 - 99 09/07 Specimen Type: CAPILLARY Comment: Test performed by: [id number] Meter #: [id number] Ordering Provider: FRANCK TURNER Report Released Date/Time: Sep 07, 2024 06:31 AM Reporting Lab: [place] [facility] [address] [facility] [address] Performing Lab: [place] [facility] [address] [facility] [address] [place] [facility] Vital Signs Combined list of inpatient and outpatient Vital Signs from Department of Defense and Veterans Affairs, ranging from 12 months to all on record, depending upon the facility. Vital Sign Value Date Comments Source SYSTOLIC BLOOD PRESSURE 168 09/09/2024 04:11:00 [place] DIASTOLIC BLOOD PRESSURE 79 09/09/2024 04:11:00 [place] [facility] PULSE OXIMETRY 93 % 09/09/2024 04:11:00 [place] PAIN 0 09/09/2024 04:11:00 [place] TEMPERATURE 97.7 09/09/2024 04:11:00 [place] PULSE 70 09/09/2024 04:11:00 [place] RESPIRATION 20 09/09/2024 04:11:00 [place] [facility] SYSTOLIC BLOOD PRESSURE 148 09/08/2024 15:46:00 [place] DIASTOLIC BLOOD PRESSURE 70 09/08/2024 15:46:00 [place] PULSE OXIMETRY 96 % 09/08/2024 15:46:00 [place] PAIN 0 09/08/2024 15:46:00 [place] TEMPERATURE 97.7 09/08/2024 15:46:00 [place] PULSE 76 09/08/2024 15:46:00 [place] RESPIRATION 16 09/08/2024 15:46:00 [place] SYSTOLIC BLOOD PRESSURE 149 09/07/2024 04:16:00 [place] DIASTOLIC BLOOD PRESSURE 71 09/07/2024 04:16:00 [place] [facility] PULSE OXIMETRY 94 % 09/07/2024 04:16:00 [place] PAIN 5 09/07/2024 04:16:00 [place] TEMPERATURE 97.6 09/07/2024 04:16:00 [place] PULSE 79 09/07/2024 04:16:00 [place] RESPIRATION 16 09/07/2024 04:16:00 [place] PAIN 0 09/06/2024 03:46:00 [place] SYSTOLIC BLOOD PRESSURE 136 09/05/2024 04:35:00 [place] DIASTOLIC BLOOD PRESSURE 72 09/05/2024 04:35:00 [place] [facility] PULSE OXIMETRY 97 % 09/05/2024 04:35:00 [place] PAIN 0 09/05/2024 04:35:00 [place] TEMPERATURE 97.7 09/05/2024 04:35:00 [place] PULSE 73 09/05/2024 04:35:00 [place] RESPIRATION 19 09/05/2024 04:35:00 [place] Encounters Combined list of: 1) Encounters from Department of Veterans Affairs facilities going backup to the last 18 months, not all [place] inpatient encounters are included; 2) Encounters from the Department of Defense facilities going backup to 280 months. Location Location Details Encounter Type Encounter Number Reason For Visit Attending Provider ADM Date DC Date Status Disposition Source [facility] IP/OBS MODERATE 35 [id number] PINKY PENDLETON 09/07 [place] [facility] [place] [facility] Outpatient Encounter [id number] 12/15 [place] [facility] [place] [facility] En[facility] [id number] 01/04 [place] [facility] [place] [facility] Outpatient Encounter [id number] 01/10 [place] [facility] [place] Outpatient Encounter [id number] 01/11 [place] [facility] Outpatient Encounter [id number] 01/12 [place] [facility] Outpatient Encounter [id number] 01/15 [place] [facility] Outpatient Encounter [id number] 01/20 [place] [facility] [place] OFF[facility] O/P [place] 60 MIN [id number] Diagnos is: ICD-10- CM G35 Multipl e scleros is BUCK HUNT 02/05 [place] [facility] [place] S[facility] [id number] Diagnos is: ICD-10- CM Z65.9 Problem related to unspeci fied psychos ocial circums CATALINA Alegria 02/05 [place] [facility] Outpatient Encounter [id number] 21 02/05 [place] [facility] Outpatient Encounter [id number] Diagnos is: ICD-10- CM G35 Multipl e scleros is HARSH BURTON 02/05 [place] [facility] HC PRO PHONE CALL 11-20 MIN [id number] Diagnos is: ICD-10- CM Z71.2 Person consult ing for explana tion of exam or test finding VALARIE Castillo 02/09 [place] [facility] Outpatient Encounter [id number] 02/22 [place] [facility] Outpatient Encounter [id number] 03/04 [place] [facility] Outpatient Encounter [id number] Diagnos is: ICD-10- CM S82.401 A Unsp fractur e of shaft of right fibula, init for clos CHASE Sepulveda 03/04 [place] [facility] HHS/HOSPIC E OF RN EA 15 MIN [id number] Diagnos is: ICD-10- CM G35 Multipl e scleros is Stephen ALCOCER 03/04 [place] [facility] ASSMT/REAS SESSMENT [id number] Diagnos is: ICD-10- CM Z65.9 Problem related to unspeci fied psychos ocial circums PADMINI Lundy NNKARON D 03/08 [place] [facility] Outpatient Encounter [id number] FRANCK WATT TTA R 03/10 [place] [facility] [place] [id number] Diagnos is: ICD-10- CM E66.09 Other obesity due to excess calorie KAREN Rodrigues C 03/10 [place] [facility] HC PRO PHONE CALL 5-10 MIN [id number] Diagnos is: ICD-10- CM Z75.5 Holiday relief care FRANCK WATT TTA R 03/11 [place] [facility] Outpatient Encounter [id number] Diagnos is: ICD-10- CM S82.401 A Unsp fractur e of shaft of right fibula, init for CHASE Waller 03/11 [place] [facility] HHCP-SERV OF PT,EA 15 MIN [id number] Diagnos is: ICD-10- CM G35 Multipl e scleros is Dianne HUFFMAN A 03/19 [place] [facility] QNHP OL DIG ASSMT&MGMT 21+ [id number] Diagnos is: ICD-10- CM Z79.899 Other residential (curren t) drug therapy SATINDER SHOOK I L 03/19 [place] [facility] Outpatient Encounter [id number] 03/23 [place] [facility] PH ASSMT&MGMT NQHP 5-10 [id number] Diagnos is: ICD-10- CM G35 Multipl e scleros is Stephen ALCOCER DITH F 03/29 [place] [facility] Outpatient Encounter [id number] 03/29 [place] [facility] Outpatient Encounter [id number] 04/16 [place] [facility] HHS/HOSPIC E OF RN EA 15 MIN [id number] Diagnos is: ICD-10- CM G35 Multipl e scleros is Stephen ALCOCER DITH F 04/21 [place] [facility] Outpatient Encounter [id number] 05/03 [place] [facility] Outpatient Encounter [id number] 05/04 [place] [facility] PH1 ASSMT&MGMT NQHP 5-10 [id number] Diagnos is: ICD-10- CM M25.561 Pain in right knee Stephen ALCOCER DITH F 05/04 [place] [facility] PH1 ASSMT&MGMT NQHP 5-10 [id number] Diagnos is: ICD-10- CM G35 Multipl e scleros is Stephen ALCOCER DITH F 05/12 [place] [facility] NQHP OL DIG ASSMT&MGMT 11-20 [id number] Diagnos is: ICD-10- CM Z79.899 Other residential (curren t) drug therapy SATINDER SHOOK I L 05/18 [place] [facility] Outpatient Encounter [id number] 05/25 [place] [facility] Outpatient Encounter [id number] Diagnos is: ICD-10- CM K21.9 Gastro- esophag eal reflux disease without esophag itis TATA MALLORY SSA 05/25 [place] [facility] [place] [id number] Diagnos is: ICD-10- CM I10 Essenti al (primar y) hyperte nsion Stephen ALCOCER DITH F 05/25 [place] [facility] Outpatient Encounter [id number] 05/27 [place] [facility] Outpatient Encounter [id number] 06/04 [place] [facility] HLTH BHV IVNTJ INDIV [id number] Diagnos is: ICD-10- CM Z65.9 Problem related to unspeci fied psychos ocial circums PADMINI Lundy NNIE D 06/07 [place] [facility] PH1 ASSMT&MGMT NQHP 11-20 [id number] Diagnos is: ICD-10- CM G35 Multipl e scleros is Dianne HUFFMAN A 06/10 [place] [facility] Outpatient Encounter [id number] 07/07 [place] [facility] HHS/HOSPIC E OF RN EA 15 MIN [id number] Diagnos is: ICD-10- CM I10 Essenti al (primar y) hyperte nsion Stephen ALCOCER 07/09 [place] [facility] Outpatient Encounter [id number] 07/19 [place] [facility] NQHP OL DIG ASSMT&MGMT 11-20 [id number] Diagnos is: ICD-10- CM Z79.899 Other buttermaker helper (curren t) drug therapy SATINDER SHOOK 08/06 [place] PH1 ASSMT&MGMT NQHP 5-10 [id number] Diagnos is: ICD-10- CM G35 Multipl e scleros is Stephen ALCOCER 08/06 [place] CASE MANAGEMENT [id number] Diagnos is: ICD-10- CM Z65.9 Problem related to unspeci fied psychos ocial circums PADMINI Lundy 08/09 [place] Outpatient Encounter [id number] 08/09 [place] Outpatient Encounter [id number] 08/16 [place] Outpatient Encounter [id number] 40 08/17 [place] Outpatient Encounter [id number] 08/18 [place] [facility] Outpatient Encounter [id number] 08/19 [place] Outpatient Encounter [id number] 08/27 [place] [facility] Outpatient Encounter [id number] 08/29 [place] [facility] EMERGENCY DEPT VISIT LOW MDM [id number] [id number] 21 Diagnos is: ICD-10- CM G35 Multipl e scleros is DOUGLASNEFTALI UNDERWOOD 08/29 [place] [facility] ELECTROCAR DIOGRAM COMPLETE 41615-5.59 [id number] 49 Diagnos is: ICD-10- CM I10 Essenti al (primar y) hyperte nsion ELGENDY,IS LI Y 08/30 [place] [facility] PH1 ASSMT&MGMT NQHP 5-10 52034-0.59 [id number] 38 Diagnos is: ICD-10- CM G35 Multipl e scleros is BUNNY SAHA 08/30 [place] [facility] Outpatient Encounter [id number] 60 08/31 [place] [facility] Outpatient Encounter [id number] 09/02 [place] [facility] [place] Outpatient Encounter [id number] 09/02 [place] [facility] [place] [facility] Inpatient Encounter [id number] [id number] 83 09/02 [place] [facility] [place] [facility] Inpatient Encounter [id number] [id number] Admit Reason: chf/pnu FRANCK Nair 09/02 [facility] [place] [facility] [place] [facility] 1ST HOSP IP/OBS MODERATE 55 [id number] [id number] 85 PINKY PENDLETON 09/02 [place] [facility] [place] [facility] Inpatient Encounter [id number] [id number] 73 09/02 [place] [facility] [place] [facility] Inpatient Encounter [id number] [id number] 82 09/02 [place] [facility] [place] [facility] Inpatient Encounter [id number] [id number] 11 09/02 [place] [facility] [place] [facility] Inpatient Encounter [id number] [id number] 39 09/02 [place] [facility] [place] [facility] Inpatient Encounter [id number] [id number] 81 09/02 [place] [facility] [place] [facility] Inpatient Encounter [id number] 80 09/03 [place] [facility] [place] [facility] Inpatient Encounter [id number] [id number] 26 09/03 [place] [facility] [place] [facility] Inpatient Encounter [id number] 85 09/03 [place] [facility] [place] [facility] Inpatient Encounter [id number] [id number] 93 09/03 [place] [facility] SBSQ HOSP IP/OBS MODERATE 35 [id number] [id number] 12 KEERTHIGAURAVROBY 09/03 [place] [facility] CASE MANAGEMENT [id number] 59 Diagnos is: ICD-10- CM Z75.1 Person rios thao admissi on to adequat e facilit y elsewhe KIMBERLI Rm 09/03 [place] [facility] MTMS BY PHARM ADDL 15 MIN [id number] [id number] 48 Diagnos is: ICD-10- CM Z51.81 Encount er for therape utic drug level monitor SARANYA [place] 09/03 [place] [facility] [place] [facility] Inpatient Encounter [id number] [id number] 09/03 [place] [facility] [place] [facility] IP/OBS CNSLTJ NEW/EST MOD 60 [id number] [id number] Jose Cruz BARBER 09/03 [place] [facility] [place] [facility] Inpatient Encounter [id number] [id number] 23 09/03 [place] [facility] [place] [facility] Inpatient Encounter [id number] [id number] 47 09/03 [place] [facility] [place] [facility] Inpatient Encounter [id number] [id number] 28 09/03 [place] [facility] [place] [facility] Inpatient Encounter [id number] [id number] 05 09/03 [place] [facility] [place] [facility] Inpatient Encounter [id number] 36 09/04 [place] [facility] [place] [facility] Inpatient Encounter [id number] [id number] 33 09/04 [place] [facility] [place] [facility] Inpatient Encounter [id number] [id number] 45 09/04 [place] [facility] [place] [facility] Inpatient Encounter [id number] [id number] 78 09/04 [place] [facility] [place] [facility] Inpatient Encounter [id number] 38 09/04 [place] [facility] [place] [facility] SBSQ HOSP IP/OBS MODERATE 35 [id number] [id number] 77 PINKY PENDLETON 09/04 [place] [facility] [place] [facility] S[facility] HOS[facility] IP/OBS SF/LOW 25 [id number] [id number] 18 Jose Cruz BARBER 09/04 [place] [facility] [place] [facility] EVALUATE SWALLOWING FUNCTION [id number] [id number] Diagnos is: ICD-10- CM R13.10 Dysphag ia, unspeci fied WHITE,EZEQUIEL JUAN L 09/04 [place] [facility] [place] [facility] Inpatient Encounter [id number] 72 09/04 [place] [facility] [place] [facility] Inpatient Encounter [id number] [id number] 23 09/04 [place] [facility] [place] [facility] Inpatient Encounter [id number] [id number] 23 09/04 [place] [facility] [place] [facility] Inpatient Encounter [id number] [id number] 99 09/04 [place] [facility] [place] [facility] Inpatient Encounter [id number] 09/05 [place] [facility] [place] [place] [facility] Inpatient Encounter [id number] [id number] 62 09/05 [place] [facility] [place] [facility] Inpatient Encounter [id number] [id number] 83 09/05 [place] [facility] [place] [facility] Inpatient Encounter [id number] [id number] 01 09/05 [place] [facility] [place] [facility] SBSQ HOSP IP/OBS MODERATE 35 [id number] [id number] 91 PINKY PENDLETON 09/05 [place] [facility] [place] [facility] Inpatient Encounter [id number] 09/05 [place] [facility] [place] [facility] Inpatient Encounter [id number] 09/05 [place] [facility] [place] [facility] Inpatient Encounter [id number] [id number] 32 09/05 [place] [facility] [place] [facility] Inpatient Encounter [id number] [id number] 59 09/05 [place] [facility] [place] [facility] Inpatient Encounter [id number] [id number] 36 09/05 [place] [facility] [place] [facility] Inpatient Encounter [id number] [id number] 24 09/06 [place] [facility] [place] [facility] Inpatient Encounter [id number] [id number] 33 09/06 [place] [facility] [place] [facility] Inpatient Encounter [id number] [id number] 18 09/06 [place] [facility] [place] [facility] EDU&TRN PT SELF-MGMT NQHP 1 [id number] [id number] 59 Diagnos is: ICD-10- CM R26.2 Difficu lty in walking , not elsewhe re classif ied SUPABRAN DON R 09/06 [place] [facility] SELF CARE MNGMENT TRAINING [id number] [id number] 44 Diagnos is: ICD-10- CM M62.81 Muscle weaknes s (genera lized) RASH,AIDAN N 09/06 [place] [facility] [place] [facility] SBSQ HOSP IP/OBS MODERATE 35 [id number] [id number] 50 PINKY PENDLETON 09/06 [place] [facility] [place] [facility] Inpatient Encounter [id number] [id number] 32 09/06 [place] [facility] [place] [facility] CASE MANAGEMENT [id number] [id number] 71 Diagnos is: ICD-10- CM Z75.8 Oth prob related to medical facilit ies and oth health care AMANDA FIERRO 09/06 [place] [facility] [place] [facility] Inpatient Encounter [id number] [id number] 72 09/06 [place] [facility] [place] [facility] Inpatient Encounter [id number] [id number] 44 09/06 [place] [facility] [place] [facility] Inpatient Encounter [id number] [id number] 40 09/06 [place] [facility] [place] [facility] [facility] Inpatient Encounter [id number] [id number] 90 09/06 [place] [facility] [place] [facility] Inpatient Encounter [id number] [id number] 08 09/07 [place] [facility] [place] [facility] Inpatient Encounter [id number] [id number] 43 09/07 [place] [facility] [place] [facility] Inpatient Encounter [id number] [id number] 09/07 [place] [facility] [place] [facility] Inpatient Encounter [id number] 09/07 [place] [facility] [place] [facility] [facility] Inpatient Encounter [id number] [id number] 62 09/07 [place] [facility] [place] [facility] SELF CARE MNGMENT TRAINING [id number] [id number] 41 Diagnos is: ICD-10- CM M62.81 Muscle weaknes s (genera lized) AIDAN HERRERA 09/07 [place] [facility] [place] [facility] SBSQ HOSP IP/OBS SF/LOW 25 [id number] [id number] [place] 09/07 [place] [facility] [place] [facility] [facility] Inpatient Encounter [id number] [id number] 09/07 [place] [facility] [place] [facility] [facility] Inpatient Encounter [id number] [id number] 56 09/07 [place] [facility] [place] [facility] Inpatient Encounter [id number] [id number] 68 09/07 [place] [facility] [place] [facility] [facility] Inpatient Encounter [id number] [id number] 96 09/07 [place] [facility] [place] [facility] [facility] Inpatient Encounter [id number] [id number] 94 09/07 [place] [facility] [place] [facility] Inpatient Encounter [id number] [id number] 12 09/07 [place] [facility] [place] [facility] Inpatient Encounter [id number] 09/08 [place] [facility] [place] [facility] [facility] Inpatient Encounter [id number] [id number] 09/08 [place] [facility] [place] [facility] Inpatient Encounter [id number] [id number] 38 09/08 [place] [facility] Inpatient Encounter [id number] [id number] 91 09/08 [place] [facility] CASE MANAGEMENT [id number] Diagnos is: ICD-10- CM Z75.8 Oth prob related to medical facilit ies and oth health care Deshaun NEUMANN N 09/08 [place] [facility] Inpatient Encounter [id number] [id number] 09/08 [place] [facility] DSCHRG MED/CURREN T MED MERGE [id number] [id number] Diagnos is: ICD-10- CM Z51.81 Encount er for therape utic drug level monitor SARANYA [place] N 09/08 [place] Inpatient Encounter [id number] [id number] 09/08 [place] [facility] THERAPE[facility] ACTIVITIES [id number] [id number] 85 Diagnos is: ICD-10- CM M62.81 Muscle weaknes s (genera lized) FRUTH,BRAN DON R 09/08 [place] [facility] SELF CARE MNGMENT TRAINING 47070-2.59 [id number] 01 Diagnos is: ICD-10- CM M62.81 Muscle weaknes s (genera lized) AIDAN HERRERA N 09/08 [place] [facility] IP/OBS MODERATE 35 70680-2.59 [id number] 56 PINKY PENDLETON 09/08 [place] [facility] [place] [facility] MANAGER CASE MANAGEMENT [place] CAP[employer] INDIVIDU [id number] [id number] Diagnos is: ICD-10- CM 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.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 ANTONIO Shafer 09/08 [place] [facility] [place] [facility] Inpatient Encounter [id number] [id number] 09/08 [place] [facility] [place] [facility] [facility] Inpatient Encounter [id number] [id number] 96 09/08 [place] [facility] [place] [facility] [facility] Inpatient Encounter [id number] [id number] 83 09/08 [place] [facility] [place] [facility] [facility] Inpatient Encounter [id number] [id number] 37 09/08 [place] [facility] [place] [facility] [facility] Inpatient Encounter [id number] [id number] 91 09/08 [place] [facility] [place] [facility] [facility] Inpatient Encounter [id number] [id number] 09/09 [place] [facility] [place] [facility] [facility] Inpatient Encounter [id number] [id number] 53 09/09 [place] [facility] [place] [facility] CASE MANAGEMENT [id number] [id number] Diagnos is: ICD-10- CM Z75.8 Oth prob related to medical facilit ies and [facility] health care Dianne GOEL 09/09 [place] [facility] [place] [facility] [facility] Inpatient Encounter [id number] [id number] 52 09/09 [place] [facility] HOSP IP/OBS DSCHRG MGMT 30/< [id number] [id number] 92 PINKY PENDLETON 09/09 [place] [facility] Inpatient Encounter [id number] [id number] 85 09/09 [place] [facility] Inpatient Encounter [id number] [id number] 95 09/09 [place] [facility] PH1 ASSMT&MGMT NQHP 5-10 [id number] [id number] Diagnos is: ICD-10- CM G35 Multipl e scleros is BUNNY SAHA 09/10 [place] Outpatient Encounter [id number] 09/13 [place] [facility] Outpatient Encounter [id number] [id number] 43 09/14 [place] Social History Combined list of available smoking, tobacco, and other social history from Department of Defense and Veterans Affairs facilities. Social History Type Response Date Comment Sourc e Tobacco smoking status NHIS VA-TOBACCO USER SOME DAYS 02/06/2024 [facility] History of tobacco use VA-TOBACCO DOESNT USE WI 30 MIN WAKEUP 02/06/2024 [facility] Plan of Care List of future care activities from Department [facility] Affairs facilities. Additional future care activities may be listed in the Assessment and Plan section. Date/Time Care Activity Care Activity Detail Facili ty 09/30/2024 AMBULATORY - SURGERY [facility] - SURGERY [facility] Advance Directives List of completed, amended, or rescinded Advance Directives on record at Department of [facility] Affairs facilities. An actual copy of the Directive is not included. Date Advance Directive Provider Source 03/08/2024 ADVANCE DIRECTIVE DISCUSSION RUBIN HILL-MALKA [facility]
--- OUTSIDE RECORDS SUMMARY | 2024-09-22 10:04 | XMS_ITS | Encounter Summary ---
Author Name [facility] Organization [facility] Address [address] [place] [address] Care Team Providers Care Administrative Tech Name Role Phone YULISSA HENDERSON Primary [...] PLAN F Mar 24, 2014 PLAN F [id number] LUIS MANUEL PERDOMO PATIENT BS [place] [employer] PREFERRED PROVIDER ORGANIZAT ION (PPO) [facility] Sep 21, 2012 [id number] [phone] LUIS MANUEL PERDOMO PATIENT [employer] ([id number]) PRESCRIPT ION [id number] Sep 21, 2012 [id number] LUIS MANUEL PERDOMO PATIENT MEDICARE (WNR) MEDICARE (M) PART B Sep 21, 2012 PART B [id number] NOEMI PERDOMO PATIENT MEDICARE (WNR) MEDICARE (M) PART A Jan 22, 2011 PART A [id number] NOEMI PERDOMO PATIENT MEDICARE PART D (WNR) MEDICARE (M) PART D Mar 24, 2014 PART D [id number] LUIS MANUEL PERDOMO PATIENT Selected Encounter This section includes the information on record at NH for the Encounter. Date/Time Encounter Type Encounter Description Reason Pro vider Source IHE Encounter Template Text not used by [place] Advance Directives: All historical and current Section [...] Mar 08, 2024 ADVANCE DIRECTIVE DISCUSSION [facility]IN [facility]
--- OUTSIDE RECORDS SUMMARY | 2024-09-22 10:07 | XMS_ITS | Data Portability ---
Author Organization [facility], [employer] Address [address] [facility] [address] [place] [address] Assessment Encounter Date Assessment Date Assessment LastModified by Organization Details LastModified Time 05/27/2023 05/27/2023 45 mins spent on visit w/ pt, chart review, care coordination and counseling The care of this patient was conducted under the direct supervision of Shana Power MD [email or web address] Not available 05/27/2023 14:58:03 Plan of [...] Address Organization Details Recorded Time Multiple sclerosis 92657514 Active 2023 NIL[facility] SEPULVEDA[facility] N [address] [place] [address], [address], [employer] 4 13:14:21 Degenerative disorder of macula 529668136 Active 2023 N[facility] BIROS[facility] N [address] [place] [address], [address], [place] [employer] 4 13:14:30 Essential hypertension 54351369 Active 2023 [facility] BIROS[facility] N [address] [place] [address], [address], [employer] 4 13:15:45 Hyperlipidemia 64847300 Active 2023 [facility] BIROS[facility] N [address] [place] [address], [address], [employer] 4 13:15:51 Restless legs 26504312 Active 2023 N[facility] SEPULVEDA[facility] N [address], [place], [address], [employer] 4 13:16:26 Gastroesophage al reflux disease 727041727 Active 2023 N[facility]O BIREMILY[facility] N [address], [place], [address], [employer] 4 13:16:32 Hyperglycemia 46042252 Active 2023 [facility]PUL[facility]ED[facility] N [address], [place], [address], [employer] 4 13:16:43 Carcinoma of prostate 374770236 Active 2023 [facility]PUL[facility] N [address], [place], [address], [employer] 4 13:27:34 Constipation 07883980 Active 2023 [facility]PULVEDA[facility] N [address], [place], [address], [employer] 4 13:35:34 Problem Notes None recorded. Medical [...] Address Organization Details Last Updated DateTime 05/27/2023 215591.09 g 36.9 kg/m2 175.26 cm NILO PLASENCIA [address] [facility] [address], [place], [address], [place] [facility] [employer] [facility] 05/27/2023 13:15:34 Social History None recorded. Functional Status None recorded. Mental Status None recorded. Family History Nothing Reported. Medical History No medical history recorded. Past Encounters Encounter ID Performer Location Encounter Start Date Encounter Closed Date Diagnosis/Indication Diagnosis SNOMED-CT Code Diagnosis ICD10 Code Diagnosis Note [id number] NILO PLASENCIA [facility] [address] [facility] [address] [place] [address] 05/27/2023 14:55:50 05/27/2023 14:58:47 Constipation 71431120 K59.00 Cont daily Miralax and prn stool softener. Carcinoma of prostate 25 2563358 C61 Cont biannual injections of prostate cancer Degenerati ve disorder of macula 396920477 H35.30 Cont injections per opthalmolo gy. Essential hypertension 71677579 I10 Cont current bisoprolol . Gastroesop hageal reflux disease 204636620 K21.9 Avoid trigger foods. Eat small meals and avoid carbonated beverages. Avoid laying down for 2 hours after meals. Hyperglycemia 29528474 R 73.9 Cont metformin. NCS diet. Hyperlipidemia 29627749 E78.5 Cont atorvastat in. Multiple sclerosis 30666 007 G35 Cont biannual infusions of Ocrevus. Follow with neurology. Restless legs 94705725 G 25.81 Cont gabapnetin . Body mass index 30+ - obesity 996214124 Z68.36 Encouraged weight loss with a combinatio n of lifestyle and dietary modificati ons. Adult heal th examination 643149606 Z00.00 Chronic care management / Remote patient [...] ID Guarantor Name 07/31/2023 1 [place]ICARE [place]: [facility] David Chung [id number] Med Chung 08/22/2024 1 [place] David Chung [id number] Med Chung 09/07/2024 2 [employer] (MEDICARE SUPPLEMENT) Med Chung [id number] Med Chung Notes Date Note Type Note [...] during today's visit. NILO [id number] [address] [place] [address], [place], [id number], [place] [email or web address] 05/27/2023 14:58:27
--- OUTSIDE RECORDS SUMMARY | 2024-09-22 10:08 | XMS_ITS | Clinical Summary ---
Author Organization [facility] Address [address] [place] [address] Phone Care Team Providers Care Chief Guard Name Role Phone Tesha BEARD, Tj Sevilla [phone] [ ] Conditions or Problems Problem Name Problem Code Onset Date Status Entry Date Provider Comment Standard Description Annotate PERSONAL HISTORY OF IMMUNOSUPPRES LOC THERAPY 169898687 (SNOMED CT) 10/29 Active 10/29 Tj Parkinson MD History of immunosuppressiv e therapy Multiple sclerosis 17540020 (SNOMED CT) 09/29 Active 09/29 Tiarra Ulrich Multiple sclerosis Need for prophylactic vaccination against Hepatitis B 138200217 (SNOMED CT) 09/29 Active 09/29 Tiarra Ulrich Procedure needed Immunity status testing, antibody response 914755471 (SNOMED CT) 09/29 Active 09/29 Tiarra Ulrich Procedure carried out on subject Medications Medication Instructions Start Date Stop Date Generic Name NDC Provider BISOPROLOL FUMARATE 5 MG TABS Take 1 tablet by mouth daily BISOPROLOL FUMARATE 26627116766 Martha S ATORVASTATIN CALCIUM 20 MG TABS Take one (1) tablet by mouth twice a day ATORVASTATIN CALCIUM 59622372741 Martha S ALFUZOSIN HCL ER 10 MG GC85Y-IPL Take 1 tablet by mouth daily ALFUZOSIN HCL 16428387514 Martha S GABAPENTIN 100 MG CAPS Take one (1) tablet by mouth four times a day GABAPENTIN 40277161789 Martha S TECFIDERA 240 MG CPDR Take one (1) tablet by mouth twice a day DIMETHYL FUMARATE 52277347768 Martha S ADULT ASPIRIN REGIMEN 81 MG ORAL TABLET DELAYED RELEASE Take 1 tablet by mouth daily ASPIRIN 78387119632 Martha Dean PRESERVISION AREDS 2+MULTI VIT CAPS Take one (1) tablet by mouth twice a day MULTIPLE VITAMINS-MINERALS 57475736454 Martha Dean E 1000 CAPSULE Take 1 tablet by mouth daily VITAMIN E CAPS 59249615583 Martha Dean VITAMIN D3 50 MCG (2000 UT) TABS Take one (1) tablet by mouth twice a day CHOLECALCIFEROL 49917185386 Martha Dean B-12 1000 MCG CAPS Take 1 tablet by mouth daily CYANOCOBALAMIN 84488049299 Martha Dean PEPCID 20 MG TABS Take 1 tablet by mouth daily prn FAMOTIDINE 99786520224 Martha Dean 4X PROBIOTIC TABS Take 1 tablet by mouth daily PROBIOTIC PRODUCT 83599024319 Martha Dean Medications Administered No information available. [...] Procedures Code Procedure Name Date Entry Date 437451 Hep B Surface AG CPT-05314 Hep B Core AB, Total CPT-69204 CMP CPT-80115 Hep B Surface AB CPT-sl STAT Labs [...]
--- OUTSIDE RECORDS SUMMARY | 2024-09-22 10:10 | XMS_ITS | Encounter Summary ---
Author Organization Healthcare Address [address] [place] [address] Care Team Providers Care Harm Reduction Worker Name Role Phone Tarik Valadez MD Primary Care Provider [phone] Encounter Details Date Type Department Care Team (Late st Contact Info) Description 09/02/2024 Telephone [facility] [address], [address] [place] [address] Bola Colunga MD [address] [place] [address] Social History Tobacco Use Types Packs/Day Years Used Date Smoking Tobacco: Never Assessed Sex and Gender Information Value Date Recorded Sex Assigned at Not on file Legal Sex Male 7:59 PM EDT Gender Identity Not on file Sexual Orientation Not on file documented as of this encounter Plan of Treatment Not on file documented as of this encounter Visit Diagnoses Not on filedocumented in this encounter Care Teams Harm Reduction Worker Relationship Specialty Start Date End Date Tarik Valadez MD [address] [place] [address] PCP - General 08/04/20 documented as of this encounter
--- OUTSIDE RECORDS SUMMARY | 2024-09-22 10:10 | XMS_ITS | Clinical Summary ---
Author Organization Healthcare Address [address] [place] [address] Care Team Providers Care Pick And Shovel Worker Name Role Phone Tarik Valadez MD Primary Care Provider [phone] Encounters Date Type Department Care Team Description 09/02/2024 Telephone [facility] [address] [place] [address] Bola Colunga MD from Last 3 Months Social History Tobacco Use Types Packs/Day Years Used Date Smoking Tobacco: Never Assessed Sex and Gender Information Value Date Recorded Sex Assigned at Not on file Legal Sex Male 7:59 PM EDT Gender Identity Not on file Sexual Orientation Not on file Plan of Treatment Health Maintenance Due Date Last Done Comments [facility]-Depression Screening 1945 [facility]-Infant/Child/Adol SDOH Screenings 1945 [facility]- SDOH Screenings 02/08/1964 [facility]-Adult SDOH Screenings 02/08/1964 [facility]-DTaP,Tdap,and Td Vaccine s (1 - Tdap) 1965 [facility]-Pneumococcal Vaccine: 50 + Years (1 of 1 - PCV) 02/08/1996 [facility]-Zoster Vaccines (1 of 2) 02/08/1996 [facility]-RSV Vaccine: 60+ Years o r (1 - 1-dose 75+ series) 2021 REO-KTLBW-22 Vaccine (1 - 20 24-25 season) 2023 [facility]-Influenza Vaccine (Seas[place] n Ended) 2024 HPV Vaccines Aged Out No longer eligi ble based on patient's age to complete this topic [facility]-HIB Vaccines Aged Out No longer e ligible based on patient's age to complete this topic [facility]-Hepatitis A Vaccines Aged Out No longer eligible based on patient's age to complete this topic [facility]-IPV Vaccines Aged Out No longer e ligible based on patient's age to complete this topic [facility]-Rotavirus Vaccines Aged Out No lo nger eligible based on patient's age to complete this topic Care Teams Pick And Shovel Worker Relationship Specialty Start Date End Date Tarik Valadez MD [address] [place] [address] PCP - General 08/04/20
--- OUTSIDE RECORDS SUMMARY | 2024-09-22 10:11 | XMS_ITS | Encounter Summary ---
Author Organization [employer] ([place], [place], [place], [place]) Address [address] [place] [address] Care Team Providers Care Migrant Leader Name Role Phone Marcelino Mobley MD Primary Care Provider [phone] Encounter Details Date Type Department Care Team (Late st Contact Info) Description 03/07/2020 Transcribed Document [facility] [place] [facility] [address] ProviderEphraim MD [address] [place] [address] Social History Tobacco Use Types Packs/Day Years Used Date Smoking Tobacco: Never Assessed Sex and Gender Information Value Date Recorded Sex Assigned at Not on file Legal Sex Male 4:11 PM CDT Gender Identity Not on file Sexual Orientation Not on file documented as of this encounter Miscellaneous Notes * [employer] Conversion Note - Ephraim ProviderMD - 03/07/2020 7:29 AM EXECUTIVE MEETING MANAGER Outpatient Visit History Entered On: 03/07/2020 7:31 EST Performed On: 03/07/2020 7:29 EST by VA BLAKE, RN Vital Measurements Temperature Source : Temporal [...] Oxygen Therapy Mode : Room air VA BLAKE, RN - 03/07/2020 7:29 EST Height and Weight, Clinical Dosing Height Source : Stated Height Entry Format : [place] Height, Feet : 5 ft(Converted to: 152 cm, 60 Inch) Height, Inches : 9 Inch(Converted to: 0 ft 9 Inch, 22.86 cm) Clinical Height : 175.26 cm Weight Source : Standing scale Weight Entry Format : [place] Clinical Dosing Weight : 109.09 kg Weight, Pounds : 240 lb Body Surface Area (BSA) : 2.23 m2 Body Mass Index : 35.5 kg/m2 (HI) [place] Body Weight : 70 kg VA BLAKE [...] VA BLAKE RN - 03/07/2020 7:29 EST [place] Suicide Severity Rating Scale (C-SSRS) CSSRS Past [...] Level : 46 or > High Risk [place] Fall Interventions : Adequate lighting, Assistive devices [...] Care Team (Late st Contact Info) Description 10/11/2024 8:00 AM EDT Appointment [facility] Outpatient Treatment [address] [place] [address] documented as of this encounter Visit Diagnoses Not on filedocumented in this encounter Care Teams Migrant Leader Relationship Specialty Start Date End Date Marcelino Mobley MD [address] [place] [address] PCP - General Emergency Medicine 03/08/22 documented as of this encounter
--- OUTSIDE RECORDS SUMMARY | 2024-09-22 10:11 | XMS_ITS | Encounter Summary ---
Author Organization [employer] ([place], [place], [place], [place]) Address [address] [place] [address] Care Team Providers Care Highway Patrol Officer Name Role Phone Marcelino Mobley MD Primary Care Provider [phone] Encounter Details Date Type Department Care Team (Late st Contact Info) Description 09/06/2021 Transcribed Document [facility] Family Medicine [facility] [place] [address] ProviderEphraim MD [address] [place] [address] Social History Tobacco Use Types Packs/Day [...] Info) Description 10/11/2024 8:00 AM EDT Appointment [facility] Outpatient Treatment [address] [place] [address] documented as of this encounter Visit Diagnoses Not on filedocumented in this encounter Care Teams Highway Patrol Officer Relationship Specialty Start Date End Date Marcelino Mobley MD [address] [place] [address] PCP - General Emergency Medicine 03/08/22 documented as of this encounter
--- OUTSIDE RECORDS SUMMARY | 2024-09-22 10:11 | XMS_ITS | Encounter Summary ---
Author Organization [employer] ([place], [place], [place], [place]) Address [address] [place] [address] Care Team Providers Care Conference Concierge Name Role Phone Marcelino Mobley MD Primary Care Provider [phone] Encounter Details Date Type Department Care Team (Late st Contact Info) Description 03/08/2021 Transcribed Document [facility] [place] [address] ProviderEphraim MD [address] [place] [address] Social History Tobacco Use Types Packs/Day Years Used Date Smoking Tobacco: Never Assessed Sex and Gender Information Value Date Recorded Sex Assigned at Not on file Legal Sex Male 4:11 PM CDT Gender Identity Not on file Sexual Orientation Not on file documented as of this encounter Miscellaneous Notes * Cerner Conversion Note - Historical ProviderMD - 03/08/2021 1:00 PM SOLE STITCHER HAND Event Note Entered On: 03/08/2021 13:09 EST Performed On: 03/08/2021 13:00 EST by EARL CISNEROS RN Event Note Description of Event : Pt assisted to bathroom and helped with toileting and brief changed. EARL CISNEROS RN - 03/08/2021 13:08 EST Electronically signed by Bienvenido [facility] Conversion Director Of Broadcast Cerner at 07/10/2022 9:45 PM CDT documented in this encounter Plan of Treatment Upcoming Encounters Date Type Department Care Team (Late st Contact Info) Description 10/11/2024 8:00 AM EDT Appointment [facility] Outpatient Treatment [address] [place] [address] documented as of this encounter Visit Diagnoses Not on filedocumented in this encounter Care Teams Conference Concierge Relationship Specialty Start Date End Date Marcelino Mobley MD [address] [place] [address] PCP - General Emergency Medicine 03/08/22 documented as of this encounter
--- OUTSIDE RECORDS SUMMARY | 2024-09-22 10:11 | XMS_ITS | Encounter Summary ---
Author Organization [employer] ([place], [place], [place], [place]) Address [address] [place] [address] Care Team Providers Care Emt Name Role Phone Marcelino Mobley MD Primary Care Provider [phone] Encounter Details Date Type Department Care Team (Late st Contact Info) Description 03/03/2019 Transcribed Document [facility] [place] [facility] [place] [address] ProviderEphraim MD [address] [place] [address] Social History Tobacco Use Types Packs/Day Years Used Date Smoking Tobacco: Never Assessed Sex and Gender Information Value Date Recorded Sex Assigned at Not on file Legal Sex Male 4:11 PM CDT Gender Identity Not on file Sexual Orientation Not on file documented as of this encounter Miscellaneous Notes * Cerner Conversion Note - Ephraim ProviderMD - 03/03/2019 7:25 AM OUTSOLE CUTTER MACHINE Outpatient Visit History Entered On: 03/03/2019 7:28 [...] Source : Chart Height Entry Format : [place] Height, Feet : 5 ft(Converted to: 152 cm, 60 Inch) Height, Inches : 9 Inch(Converted to: 0 ft 9 Inch, 22.86 cm) Clinical Height : 175.26 cm Weight Source : Standing scale Weight Entry Format : [place] Clinical Dosing Weight : 113.64 kg Weight, Pounds : 250 lb Body Surface Area (BSA) : 2.27 m2 Body Mass Index : 37 kg/m2 (HI) [place] Body Weight : 70 kg CLAUDIA TEMPLETON [...] 08/12/2016 18:26:56 EDT by Tj Chicas RN) Advance Directive Patient has Advance Directive *Q : No, patient refuses Advance Directive information CLAUDIA TEMPLETON RN - 03/03/2019 7:25 EST [place] Suicide Severity Rating Scale (C-SSRS) CSSRS Past [...] Level : 46 or > High Risk [place] Fall Interventions : Adequate lighting, Assistive devices [...] - 03/03/2019 7:25 EST Electronically signed by Bienvenido [facility] Conversion Forensic Social Worker Cerner at 07/10/2022 10:07 PM CDT documented in this encounter Plan of Treatment Upcoming Encounters Date Type Department Care Team (Late st Contact Info) Description 10/11/2024 8:00 AM EDT Appointment [facility] Outpatient Treatment [address] [place] [address] documented as of this encounter Visit Diagnoses Not on filedocumented in this encounter Care Teams Emt Relationship Specialty Start Date End Date Marcelino Mobley MD [address] [place] [address] PCP - General Emergency Medicine 03/08/22 documented as of this encounter
--- OUTSIDE RECORDS SUMMARY | 2024-09-22 10:11 | XMS_ITS | Encounter Summary ---
Author Organization [employer] ([place], [place], [place], [place]) Address [address] [place] [address] Care Team Providers Care Automotive Assembler Name Role Phone Marcelino Mobley MD Primary Care Provider [phone] Encounter Details Date Type Department Care Team (Late st Contact Info) Description 09/06/2021 Transcribed Document [facility] [place] [facility] [place] [address] ProviderEphraim MD [address] [place] [address] Social History Tobacco Use Types Packs/Day Years Used Date Smoking Tobacco: Never Assessed Sex and Gender Information Value Date Recorded Sex Assigned at Not on file Legal Sex Male 4:11 PM CDT Gender Identity Not on file Sexual Orientation Not on file documented as of this encounter Miscellaneous Notes * Cerner Conversion Note - Ephraim ProviderMD - 09/06/2021 1:03 PM CDT Nursing Discharge Summary Entered On: 09/06/2021 13:05 EDT Performed On: 09/06/2021 13:03 EDT by MALDONADO CHO engineering assistant Documentation Patient Disposition, General : Discharge Discharge [...] MALDONADO CHO RN - 09/06/2021 13:03 EDT documented in this encounter Plan of Treatment Upcoming Encounters Date Type Department Care Team (Late st Contact Info) Description 10/11/2024 8:00 AM EDT Appointment [facility] Outpatient Treatment [address] [place] [address] documented as of this encounter Visit Diagnoses Not on filedocumented in this encounter Care Teams Automotive Assembler Relationship Specialty Start Date End Date Marcelino Mobley MD [address] [place] [address] PCP - General Emergency Medicine 03/08/22 documented as of this encounter
--- OUTSIDE RECORDS SUMMARY | 2024-09-22 10:11 | XMS_ITS | Encounter Summary ---
Author Organization [employer] ([place], [place], [place], [place]) Address [address] [place] [address] Care Team Providers Care Header Dock Name Role Phone Marcelino Mobley MD Primary Care Provider [phone] Encounter Details Date Type Department Care Team (Late st Contact Info) Description 09/06/2019 Transcribed Document [facility] [place] [facility] [place] [address] ProviderEphraim MD [address] [place] [address] Social History Tobacco Use Types Packs/Day Years Used Date Smoking Tobacco: Never Assessed Sex and Gender Information Value Date Recorded Sex Assigned at Not on file Legal Sex Male 4:11 PM CDT Gender Identity Not on file Sexual Orientation Not on file documented as of this encounter Miscellaneous Notes * Cerner Conversion Note - Historical ProviderMD - 09/06/2019 1:44 PM CDT Nursing Discharge Summary Entered On: 09/06/2019 13:44 EDT Performed On: 09/06/2019 13:44 EDT by GIOVANNI MITCHELL oracle financials consultant Documentation Discharge Date/Time : 09/06/2019 13:30 EDT Patient Disposition, General : Discharge Discharge To : Home with ambulatory/outpatient follow-up Mode Of Departure, General Discharge : Wheelchair Accompanied By, Discharge : Spouse IV Discontinued : Yes Discharge Instructions Reviewed With, Opportunity For Questions Given : Patient Teaching Method : Explanation Teaching Evaluation : Verbalizes understanding GIOVANNI MITCHELL RN - 09/06/2019 13:44 EDT documented in this encounter Plan of Treatment Upcoming Encounters Date Type Department Care Team (Late st Contact Info) Description 10/11/2024 8:00 AM EDT Appointment [facility] Outpatient Treatment [address] [place] [address] documented as of this encounter Visit Diagnoses Not on filedocumented in this encounter Care Teams Header Dock Relationship Specialty Start Date End Date Marcelino Mobley MD [address] [facility] [address] [place] [address] PCP - General Emergency Medicine 03/08/22 documented as of this encounter
--- OUTSIDE RECORDS SUMMARY | 2024-09-22 10:11 | XMS_ITS | Encounter Summary ---
Author Organization [employer] ([place], [place], [place], [place]) Address [address] [place] [address] Care Team Providers Care Jewelry Bearing Maker Name Role Phone Marcelino Mobley MD Primary Care Provider [phone] Encounter Details Date Type Department Care Team (Late st Contact Info) Description 03/08/2021 Transcribed Document [facility] [place] [facility] [place] [address] ProviderEphraim MD [address] [place] [address] Social History Tobacco Use Types Packs/Day Years Used Date Smoking Tobacco: Never Assessed Sex and Gender Information Value Date Recorded Sex Assigned at Not on file Legal Sex Male 4:11 PM CDT Gender Identity Not on file Sexual Orientation Not on file documented as of this encounter Miscellaneous Notes * Cerner Conversion Note - Ephraim ProviderMD - 03/08/2021 7:31 AM POLE FRAMER Outpatient Visit History Entered On: 03/08/2021 7:33 [...] Source : Measured Height Entry Format : [place] Height, Feet : 5 ft(Converted to: 152 cm, 60 Inch) Height, Inches : 9 Inch(Converted to: 0 ft 9 Inch, 22.86 cm) Clinical Height : 175.26 cm Weight Source : Standing scale Weight Entry Format : [place] Clinical Dosing Weight : 115 kg Weight, Pounds : 253 lb Body Surface Area (BSA) : 2.28 m2 Body Mass Index : 37.4 kg/m2 (HI) [place] Body Weight : 70 kg BUCK HARTMANN [...] BUCK HARTMANN RN - 03/08/2021 7:31 EST [place] Suicide Severity Rating Scale (C-SSRS) CSSRS Past [...] Level : 46 or > High Risk [place] Fall Interventions : Adequate lighting, Assistive devices [...] Appointment [facility] Outpatient Treatment [address] [place] [address] documented as of this encounter Visit Diagnoses Not on filedocumented in this encounter Care Teams Jewelry Bearing Maker Relationship Specialty Start Date End Date Marcelino Mobley MD [address] [place] [address] PCP - General Emergency Medicine 03/08/22 documented as of this encounter
--- OUTSIDE RECORDS SUMMARY | 2024-09-22 10:11 | XMS_ITS | Encounter Summary ---
Author Organization [employer] ([place], [place], [place], [place]) Address [address] [place] [address] Care Team Providers Care Petroleum Blending Plant Operator Name Role Phone Marcelino Mobley MD Primary Care Provider [phone] Encounter Details Date Type Department Care Team (Late st Contact Info) Description 03/08/2021 Transcribed Document [facility] [place] [facility] [place] [address] ProviderEphraim MD [address] [place] [address] Social History Tobacco Use Types Packs/Day Years Used Date Smoking Tobacco: Never Assessed Sex and Gender Information Value Date Recorded Sex Assigned at Not on file Legal Sex Male 4:11 PM CDT Gender Identity Not on file Sexual Orientation Not on file documented as of this encounter Miscellaneous Notes * [employer] Conversion Note - Historical ProviderMD - 03/08/2021 1:10 PM DATA ANALYTICS SPECIALIST Nursing Discharge Summary Entered On: 03/08/2021 13:17 EST Performed On: 03/08/2021 13:10 EST by EARL CISNEORS RN Discharge Documentation Discharge Date/Time : 03/08/2021 [...] EARL CISNEROS RN - 03/08/2021 13:17 EST Electronically signed by Bienvenido [facility] Conversion Worship Pastor Cerner at 07/10/2022 9:55 PM CDT documented in this encounter Plan of Treatment Upcoming Encounters Date Type Department Care Team (Late st Contact Info) Description 10/11/2024 8:00 AM EDT Appointment [facility] Outpatient Treatment [address] [place] [address] documented as of this encounter Visit Diagnoses Not on filedocumented in this encounter Care Teams Petroleum Blending Plant Operator Relationship Specialty Start Date End Date Marcelino Mobley MD [address] [place] [address] PCP - General Emergency Medicine 03/08/22 documented as of this encounter
--- OUTSIDE RECORDS SUMMARY | 2024-09-22 10:11 | XMS_ITS | Encounter Summary ---
Author Organization [employer] ([place], [place], [place], [place]) Address [address] [place] [address] Care Team Providers Care Sewer System Supervisor Name Role Phone Marcelino Mobley MD Primary Care Provider [phone] Encounter Details Date Type Department Care Team (Late st Contact Info) Description 09/06/2021 Transcribed Document [facility] [place] [facility] [place] [address] ProviderEphraim MD [address] [place] [address] Social History Tobacco Use Types Packs/Day [...] Performed On: 09/06/2021 7:20 EDT by MALDONADO CHO RN Vital Measurements Temperature Source : Temporal [...] Source : Stated Height Entry Format : [place] Height, Feet : 5 ft(Converted to: 152 cm, 60 Inch) Height, Inches : 8 Inch(Converted to: 0 ft 8 Inch, 20.32 cm) Clinical Height : 172.72 cm Weight Source : Standing scale Weight Entry Format : [place] Clinical Dosing Weight : 113.64 kg Weight, Pounds : 250 lb Body Surface Area (BSA) : 2.25 m2 Body Mass Index : 38.1 kg/m2 (HI) [place] Body Weight : 67 kg MALDONADO CHO [...] (3 episode per day) : NO MALDONADO COH RN - 09/06/2021 7:20 EDT Physical contact [...] MALDONADO CHO RN - 09/06/2021 7:20 EDT [place] Suicide Severity Rating Scale (C-SSRS) CSSRS Past [...] Scale Risk Level : 25-45 Medium Risk [place] Fall Interventions : Adequate lighting, Call device within reach, Personal items within reach, Room free of clutter/spills, Wheels locked, Wires/Cords secured MALDONADO CHO RN - 09/06/2021 7:20 EDT Pain Assessment Pain Assessment : Initial assessment Intensity : 0 MALDONADO CHO RN - 09/06/2021 7:20 EDT documented in this encounter Plan of Treatment Upcoming Encounters Date Type Department Care Team (Late st Contact Info) Description 10/11/2024 8:00 AM EDT Appointment [facility] Outpatient Treatment [address] [place] [address] documented as of this encounter Visit Diagnoses Not on filedocumented in this encounter Care Teams Sewer System Supervisor Relationship Specialty Start Date End Date Marcelino Mobley MD [address] [place] [address] PCP - General Emergency Medicine 03/08/22 documented as of this encounter
--- NOTE | 2024-09-22 10:12 | XR_ITS ---
FINAL REPORT CLINICAL HISTORY: Nonspecific cough COMPARISON: 08/13/2024 FINDINGS: The heart size is normal. The mediastinum is normal. Dense airspace opacity of the right lung base is probably due to acute pneumonia. Atelectasis is noted of the left lung base. There are no pleural effusions. There is no pneumothorax. There is no osseous abnormality. IMPRESSION: Acute pneumonia right lung base. Reviewed, Interpreted and Dictated by Humberto Zapata MD Transcribed by Martha Plasencia Authenticated and [facility]
--- OUTSIDE RECORDS SUMMARY | 2024-09-22 10:12 | XMS_ITS | Encounter Summary ---
Author Organization [employer] ([place], [place], [place], [place]) Address [address] [place] [address] Care Team Providers Care Sanitary Plumber Name Role Phone Marcelino Mobley MD Primary Care Provider [phone] Encounter Details Date Type Department Care Team (Late st Contact Info) Description 09/06/2020 Transcribed Document [facility] [place] [facility] [place] [address] ProviderEphraim MD [address] [place] [address] Social History Tobacco Use Types Packs/Day [...] Appointment [facility] Outpatient Treatment [address] [place] [address] documented as of this encounter Visit Diagnoses Not on filedocumented in this encounter Care Teams Sanitary Plumber Relationship Specialty Start Date End Date Marcelino Mobley MD [address] [place] [address] PCP - General Emergency Medicine 03/08/22 documented as of this encounter
--- OUTSIDE RECORDS SUMMARY | 2024-09-22 10:12 | XMS_ITS | Encounter Summary ---
Author Organization [employer] ([place], [place], [place], [place]) Address [address] [place] [address] Care Team Providers Care Housing Property Manager Name Role Phone Marcelino Mobley MD Primary Care Provider [phone] Encounter Details Date Type Department Care Team (Late st Contact Info) Description 09/06/2020 Transcribed Document [facility] [place] [facility] [place] [address] ProviderEphraim MD [address] [place] [address] Social History Tobacco Use Types Packs/Day [...] Source : Stated Height Entry Format : [place] Height, Feet : 5 ft(Converted to: 152 cm, 60 Inch) Height, Inches : 9 Inch(Converted to: 0 ft 9 Inch, 22.86 cm) Clinical Height : 175.26 cm Weight Source : Standing scale Weight Entry Format : [place] Clinical Dosing Weight : 113.64 kg Weight, Pounds : 250 lb Body Surface Area (BSA) : 2.27 m2 Body Mass Index : 37 kg/m2 (HI) [place] Body Weight : 70 kg CHAUNCEY BARGER [...] CHAUNCEY BARGER RN - 09/06/2020 7:19 EDT [place] Suicide Severity Rating Scale (C-SSRS) CSSRS Past [...] Level : 46 or > High Risk [place] Fall Interventions : Adequate lighting, Call device [...] Info) Description 10/11/2024 8:00 AM EDT Appointment [facility] Outpatient Treatment [address] [place] [phone] documented as of this encounter Visit Diagnoses Not on filedocumented in this encounter Care Teams Housing Property Manager Relationship Specialty Start Date End Date Marcelino Mobley MD [address] [place] [address] PCP - General Emergency Medicine 03/08/22 documented as of this encounter
--- OUTSIDE RECORDS SUMMARY | 2024-09-22 10:12 | XMS_ITS | Encounter Summary ---
Author Organization [employer] ([place], [place], [place], [place]) Address [address] [place] [address] Care Team Providers Care Magnetic Tape Composer Operator Name Role Phone Marcelino Mobley MD Primary Care Provider [phone] Encounter Details Date Type Department Care Team (Late st Contact Info) Description 09/06/2020 Transcribed Document [facility] [place] [facility] [place] [address] ProviderEphraim MD [address] [place] [address] Social History Tobacco Use Types Packs/Day [...] Performed On: 09/06/2020 13:30 EDT by CHAUNCEY BARGER RN Discharge Documentation Discharge Date/Time : 09/06/2020 13:30 EDT [...] or difficulty, dcd stable condition CHAUNCEY BARGER, RN - 09/06/2020 13:31 EDT documented in this encounter Plan of Treatment Upcoming Encounters Date Type Department Care Team (Late st Contact Info) Description 10/11/2024 8:00 AM EDT Appointment [facility] Outpatient Treatment [address] [place] [address] documented as of this encounter Visit Diagnoses Not on filedocumented in this encounter Care Teams Magnetic Tape Composer Operator Relationship Specialty Start Date End Date Marcelino Mobley MD [address] [place] [address] PCP - General Emergency Medicine 03/08/22 documented as of this encounter
--- OUTSIDE RECORDS SUMMARY | 2024-09-22 10:12 | XMS_ITS | Encounter Summary ---
Author Organization [employer] ([place], [place], [place], [place]) Address [address] [place] [address] Care Team Providers Care Member Services Coordinator Name Role Phone Marcelino Mobley MD Primary Care Provider [phone] Encounter Details Date Type Department Care Team (Late st Contact Info) Description 03/07/2020 Transcribed Document [facility] [place] Family Medicine [address] [place] [address] ProviderEphraim MD [address] [place] [address] Social History Tobacco Use Types Packs/Day Years Used Date Smoking Tobacco: Never Assessed Sex and Gender Information Value Date Recorded Sex Assigned at Not on file Legal Sex Male 4:11 PM CDT Gender Identity Not on file Sexual Orientation Not on file documented as of this encounter Miscellaneous Notes * Cerner Conversion Note - Historical ProviderMD - 03/07/2020 1:00 PM DUST CONTROL ENGINEER Nursing Discharge Summary Entered On: 03/07/2020 12:54 EST Performed On: 03/07/2020 13:00 EST by [facility] BLAKE, excavating contractor Documentation Discharge Date/Time : 03/07/2020 13:00 EST [...] signed by Bienvenido, [facility] Conversion Manager Disaster Recovery Cerner at 07/10/2022 9:45 PM CDT documented in this encounter Plan of Treatment Upcoming Encounters Date Type Department Care Team (Late st Contact Info) Description 10/11/2024 8:00 AM EDT Appointment [facility] Outpatient Treatment [address] [place] [address] documented as of this encounter Visit Diagnoses Not on filedocumented in this encounter Care Teams Member Services Coordinator Relationship Specialty Start Date End Date Marcelino Mobley MD [address] [place] [address] PCP - General Emergency Medicine 03/08/22 documented as of this encounter
--- OUTSIDE RECORDS SUMMARY | 2024-09-22 10:12 | XMS_ITS | Encounter Summary ---
Author Organization [employer] ([place], [place], [place], [place]) Address [address] [place] [address] Care Team Providers Care Service Writer Advisor Name Role Phone Marcelino Mobley MD Primary Care Provider [phone] Encounter Details Date Type Department Care Team (Late st Contact Info) Description 09/06/2019 Transcribed Document [facility] [place] [facility] [place] [address] ProviderEphraim MD [address] [place] [id number] Social History Tobacco Use Types Packs/Day Years [...] Source : Chart Height Entry Format : [place] Height, Feet : 5 ft(Converted to: 152 cm, 60 Inch) Height, Inches : 9 Inch(Converted to: 0 ft 9 Inch, 22.86 cm) Clinical Height : 175.26 cm Weight Source : Standing scale Weight Entry Format : [place] Clinical Dosing Weight : 113.64 kg Weight, Pounds : 250 lb Body Surface Area (BSA) : 2.27 m2 Body Mass Index : 37 kg/m2 (HI) [place] Body Weight : 70 kg LUIS VELASQUEZ [...] LUIS VELASQUEZ RN - 09/06/2019 7:45 EDT [place] Suicide Severity Rating Scale (C-SSRS) CSSRS Past [...] Access : Yes Malissa Gait/Transferring : Impaired Malissa Mental Status : Oriented to own ability [place] Fall Risk Score : 70 AL[place] Fall Scale Risk Level : 46 or > High Risk [place] Fall Interventions : Adequate lighting, Assistive devices [...] Info) Description 10/11/2024 8:00 AM EDT Appointment [facility] Outpatient Treatment [address] [place] [address] documented as of this encounter Visit Diagnoses Not on filedocumented in this encounter Care Teams Service Writer Advisor Relationship Specialty Start Date End Date Marcelino Mobley MD [address] [place] [address] PCP - General Emergency Medicine 03/08/22 documented as of this encounter
--- OUTSIDE RECORDS SUMMARY | 2024-09-22 10:13 | XMS_ITS | Referral Summary ---
Author Organization [employer] ([place], [place], [place], [place]) Address [address] [place] [address] Care Team Providers Care Case Liner Name Role Phone Marcelino Mobley MD Primary Care Provider [phone] Allergies No known active allergies Medications alfuzosin [...] drink = 0.6 oz pur e alcohol) Family and Community Support Answer Krishan e Recorded Help with Day to Day Activities Not on file 04/04/2023 Feeling Lonely or Isolated Not on file 04/04 Educational Attainment Answer Date El rded Speak language other than Lao at home Not on file 04/04/2023 Want help with school or training Not on file 04/04/2023 Substance Use Answer Date Recorded Used [...] Info) Description 10/11/2024 8:00 AM EDT Appointment [facility] Outpatient Treatment [address] [place] [address] Insurance MEDICARE PART A B [facility] CLAIMS Care Teams Case Liner Relationship Specialty Start Date End Date Marcelino Mobley MD [address] [place] [address] PCP - General Emergency Medicine 03/08/22
--- OUTSIDE RECORDS SUMMARY | 2024-09-22 10:13 | XMS_ITS | Clinical Summary ---
Author Organization [employer] ([place], [place], [place], [place]) Address [address] [place] [address] Care Team Providers Care Strip Mill Operator Name Role Phone Marcelino Mobley MD Primary Care Provider [phone] Allergies No known active allergies Medications alfuzosin [...] Date El rded Speak language other than Wolof at home Not on file 04/04/2023 Want [...] [facility] Outpatient Treatment [address] [place] [address] Health Maintenance Due Date Last Done Comments Medicare Initial AWV [id number] Depression Screening (12+) 1957 Tobacco Cessation Counseling and Screening (12+) 1958 Hepatitis C Screening 02/08/1964 DTAP/TDAP/TD VACCINES (1 - Tdap) 1965 Pneumococcal 50+ years (1 of 2 - PCV) 1965 Shingles Vaccine (Zoster) (2 of 2) 03/01/20192018 Respiratory Syncytial Virus (RSV) Adult or (1 - 1-dose 75+ series) 2021 COVID-19 VACCINE (2023-2 5 season) 2023 10/04/2021, 12/21/2020, 06/20/2020, Additional history exists Falls Risk Screening 03/24/2024 Influenza Vaccine (Season Ended) 2024 01/25/2022, 01/10/2020, 01/05/2020, Additional history exists [place] [id number] MEDICARE PART A B HEALTH CLAIMS Care Teams Strip Mill Operator Relationship Specialty Start Date End Date Marcelino Mobley MD [address] [place] [phone] PCP - General Emergency Medicine 03/08/22
--- OUTSIDE RECORDS SUMMARY | 2024-09-22 10:13 | XMS_ITS | Continuity of Care Document ---
Author Organization [facility] Yanet savage [facility] Address [address] [place] [address] Care Team Providers Care Concierge Receptionist Name Role Phone AIXAKEYSHAGOPI ALDRICHHEN Primary Care Provider Assessment Encounter Date Assessment [...] Details Appointments NEUROLOGY RECHECK 2024 08:30A Mellissa DUVAL DO Not available Not available Not available RECHECK 2024 02:00P Mellissa PATEL MD Not available Not available Not available Lab culture, urine 2024 025 4 [facility], [address] [place] [address], [id number], 08/03/2024 19:18:11 urinalysi s panel, auto 2024 025 [email or web address] 4 [facility] [place] [facility], [address] [place] [address] [address], [place], [address], 07/29/2024 14:38:36 Referral None recorded. Procedures None recorded. Surgeries None recorded. Imaging None recorded. Medication Orders methenami ne hippurate 1 gram tablet 2024 025 [facility], [address] [place], [address], 07/29/2024 14:38:43 silodosin 8 mg capsule 2024 025 [facility], [address] [place], [address], 07/29/2024 14:38:42 Patient TargetsNo targets recorded. Patient Instructions Encounter Date Encounter Id Patient Instructions Last Modified By Organization Details Last Modified Time 07/29/2024 [id number] - Drink more water every day; keep up the good work! - If symptoms like strong-smelling urine do not improve, or get worse, seek help. - continue taking prostate and UTI pills. - Remember the follow-up shot today. [email or web address] Not available 08/08/2024 15:19:40 Reason for Referral None Reported. Results Created Date Observation Date Name Description Value Unit Range Abnormal Flag Note LastModifiedBy Organization Detail LastModifiedTime 07/30/1907/29/2024 urina lysis panel , auto Unknown Analyte Clean Catch Not Available [facility] [place] [facility] With [address], [place], [address], 07/29/2024 14:13:56 07/30/19 25 07/29/2024 urina lysis panel , auto Unknown Analyte Yellow Not Available [facility] With [address], [place], [address], 07/29/2024 14:13:56 07/30/19 25 07/29/2024 urina lysis panel , auto Unknown Analyte Clear Not Available [facility] With [address], [place], [address], 07/29/2024 14:13:56 07/30/19 25 07/29/2024 urina lysis panel , auto Unknown Analyte 1.015 Not Available [facility] With [address] [place], [address], 07/29/2024 14:13:56 07/30/1907/29/2024 urina lysis panel , auto Unknown Analyte 1.003 - 1.030 Not Available [facility] With [address] [place], [address], 07/29/2024 14:13:56 07/30/19 25 07/29/2024 urina lysis panel , auto Unknown Analyte 5.0 Not Available [facility] With [address] [place], [address], 07/29/2024 14:13:56 07/30/19 25 07/29/2024 urina lysis panel , auto Unknown Analyte 5.0 - 8.0 Not Available [facility] With [address] [place], [address], 07/29/2024 14:13:56 07/30/1907/29/2024 urina lysis panel , auto Unknown Analyte 500 Ade/uL Not Available [facility] With [address] [place], [address], 07/29/2024 14:13:56 07/30/1907/29/2024 urina lysis panel , auto Unknown Analyte Negati ve Not Available [facility] With [address] [place], [address], 07/29/2024 14:13:56 07/30/1907/29/2024 urina lysis panel , auto Unknown Analyte POSITI VE (Abnor mal) Not Available [facility] With [address] [place], [address], 07/29/2024 14:13:56 07/30/19 25 07/29/2024 urina lysis panel , auto Unknown Analyte Negati ve Not Available [facility] With [address] [place], [place], [address], 07/29/2024 14:13:56 07/30/19 25 07/29/2024 urina lysis panel , auto Unknown Analyte Trace Not Available [facility] With [address] [place], [address], 07/29/2024 14:13:56 07/30/19 25 07/29/2024 urina lysis panel , auto Unknown Analyte Negati ve Not Available [facility] With [address] [place], [address], 07/29/2024 14:13:56 07/30/19 25 07/29/2024 urina lysis panel , auto Unknown Analyte Normal Not Available [facility] With [address], [place], [address], 07/29/2024 14:13:56 07/30/19 25 07/29/2024 urina lysis panel , auto Unknown Analyte Normal Not Available [facility] With [address], [place], [address], 07/29/2024 14:13:56 07/30/19 25 07/29/2024 urina lysis panel , auto Unknown Analyte Negati ve Not Available [facility] With [address] [place], [address], 07/29/2024 14:13:56 07/30/19 25 07/29/2024 urina lysis panel , auto Unknown Analyte Negati ve Not Available [facility] With [address], [place], [address], 07/29/2024 14:13:56 07/30/19 25 07/29/2024 urina lysis panel , auto Unknown Analyte 1 mg/dL Not Available [facility] With [address] [place], [address], 07/29/2024 14:13:56 07/30/19 25 07/29/2024 urina lysis panel , auto Unknown Analyte Normal Not Available [facility] With [address] [place], [address], 07/29/2024 14:13:56 07/30/19 25 07/29/2024 urina lysis panel , auto Unknown Analyte Negati ve Not Available [facility] With [address] [place], [address], 07/29/2024 14:13:56 07/30/19 25 07/29/2024 urina lysis panel , auto Unknown Analyte Negati ve Not Available [facility] With [address] [place], [address], 07/29/2024 14:13:56 07/30/19 25 07/29/2024 urina lysis panel , auto Unknown Analyte Negati ve Not Available [facility] With [address] [place], [address], 07/29/2024 14:13:56 07/30/19 25 07/29/2024 urina lysis panel , auto Unknown Analyte Negati ve Not Available [facility] With [address] [place], [address], 07/29/2024 14:13:56 Result Notes None recorded. 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 52950946089 101 Active 2014 From Automated Load;Prov ider: Lobo, Stacy;St atus: Active Not Available [facility] 6 08:27:56 Increased frequency of urination 714506350 Active 2014 From Automated Load;Prov ider: Lobo, Stacy;St atus: Active Not Available [facility] 6 08:27:56 Urge incontine nce of urine 15225050 Active 2015 From Automated Load;Prov ider: Lobo, Stacy;St atus: Active Not Available [facility] 6 08:27:56 Urgent desire to urinate 91544710 Active 2015 From Automated Load;Prov ider: Lobo, Stacy;St atus: Active Not Available [facility] 6 08:27:56 Multiple sclerosis 13096426 Active 2015 From Automated Load;Prov ider: Lobo, Stacy;St atus: Active Not Available [facility] 6 08:27:56 Weakness of left arm 95174720749 339247 Active 2019 Mary davis [facility] 0 10:22:02 Edema 461919182 Active 2019 Mary davis [facility] 0 07:35:39 Weakness of left leg 58574186859 427076 Active 2019 Mary davis [facility] 0 07:35:40 Problem Notes None recorded. Procedures Surgical History Date Name Laterality Status Provider Name and Address Organization Details Recorded Time 07/30/19 25 Lupron Administration completed Trish Rushing [facility] 07/29/2024 14:47:24 12/04/19 24 [facility] 18:14:34 05/29/19 [address] [facility]/29[facility]20[facility] 13:00:54 11/29/19 23 [facility] 12:56:58 05/31/19 23 Eligard Administration [place] [facility] 05/30/2022 14:30:56 05/23/19 22 [facility] 06/14/2021 15:48:50 03/24/19 14 [facility] 13:37:26 03/24/18 56 Appendectomy completed [facility] 07/28/2018 13:37:18 Imaging Results None recorded. Procedure [...] Updated DateTime 07/29/2024 175.26 cm 36.9 kg/m2 527491.09 g Trish Rushing [facility] 07/29/2024 14:13:34 Social History Question Answer Notes LastModified by Organizat ion Details LastModified Time Tobacco Smoking Status Current Some Day Smoker Beulah davis [facility] 07/28/2018 13:36:22 How Much Tobacco Do You Chew? None Information not available 07/28/2018 Which Illicit Or Recreational Drugs Have You Used? None Information not available 03/12/2019 Live Alone Or With Others? With Others Information not available 07/28/2018 Marital Status Informatio n not available 07/28/2018 What Was The Date Of Your Most Recent Tobacco Screening? 07/29/2024 [email or web address] Information not available 07/29/2024 What Is Your [...] Disease N Other N Gout N Kidney Stones N Kidney Cyst N Enlarged Prostate Y Heart Arrhythmia N Emphysema N Erectile Dysfunction N Head Trauma/Injury N Sexually Transmitted Disease N Depression N Pneumonia N Incontinence Y Prostate Problems Y Cancer Prostate Y Paralysis N Anxiety Disorder N Hemorrhoids N Obesity N Arthritis N Infertility N Acid Reflux (GERD) Y Cancer Y Hematuria N Stroke N Neck Injury N Neurologic Disorder [...] Multiple Sclerosis Y Proteinuria N Heart Attack ([place]) N Mental Illness N Neurological Problems Y Diabetes Y Ovarian Cancer N Seizures/Epilepsy N Genitourinary problem(s) N Congestive Heart Failure (CHF) N Kidney Failure N Sleep Apnea N Heart Disease N Bronchitis N Hypertension Y Immunizations Vaccine Type Date Status Note Provider Nam e and Address Organization Details Recorded Time Influenza, split virus, quadrivalent, preservative 8 completed Murelene Tripp [facility] 05/01/2023 15:41:04 pneumococcal, unspecified formulation 7 [facility] 15:41:04 Hep A, unspecified formulation 8 completed Murelene Tripp [facility] 12/04/2023 13:20:33 Influenza, split virus, quadrivalent, preservative 9 [facility] 15:41:04 Influenza, split virus, quadrivalent, preservative 0 [facility]23 15:41:04 SARS-COV-2 (COVID-19) vaccine, UNSPECIFIED 1 completed [facility]23 13:20:33 SARS-COV-2 (COVID-19) vaccine, UNSPECIFIED 1 [place] [facility] 12/04/2023 13:20:33 Past Encounters Encounter ID Performer Location Encounter Start Date Encounter Closed Date Diagnosis/Indication Diagnosis SNOMED-CT Code Diagnosis ICD10 Code Diagnosis Note [id number] STACY PATEL MD [facility] [address] [facility],[address] [place] [address] 07/29/2024 13:58:47 07/29/2024 14:52:19 Urinary tract infectious disease 49593629 N39.0 - Send urine for culture. - Advise on increased fluid intake. Urinary incontinence 165 912410 R32 - Continue silodosin. - Monitor fluid intake. Malignant neoplasm of prostate 152957672 C61 - Maintain Lupron therapy. - PSA remains undetectab le. Health Concerns Section Related Observation LastModified by Organization Detai ls LastModified Time None Recorded Concern Status LastModified by Organization Details LastModified Time None Recorded Payers Encounter Date Sequence Insurance Name Policy Number Policy Munoz Covered Member ID Munoz Member ID Guarantor Name 07/29/2024 1 [place] David Chung [id number] Med Chung 07/29/2024 2 [employer] (MEDICARE SUPPLEMENT) Med Chung [id number] Med Chung Notes Date Note Type Note [...] and June 08, 2024). STACY PATEL MD [address] [place] [address], [address], [facility] 08/08/2024 15:20:06
--- NOTE | 2024-09-22 10:16 | ED_ITS ---
<Statement entered by Reyes Smith MD - 09/22/24 17:22> I was consulted by the RAMO, and we discussed the complexity of problems being addressed. I approved the treatment and management plan for this patient's care in the emergency department, thus performing a substantial portion of the medical decision making. Reyes Smith MD Discharge Plan Disposition Patient Disposition: Xfer Other Prescriptions Prescriptions: No Action famotidine 20 mg tablet 20 mg PO BID Qty: 60 5RF bisoprolol fumarate 5 mg tablet 5 mg PO DAILY 30 Days Qty: 30 0RF vitamin E 400 unit Tablet 400 unit PO DAILY acetaminophen 325 mg Tablet 650 mg PO Q4HP PRN (Reason: Fever Or Mild Pain (1-3)) Qty: 90 0RF gabapentin 100 mg Capsule 200 mg PO TID 30 Days Qty: 180 0RF atorvastatin 20 mg tablet 20 mg PO HS 30 Days Qty: 30 0RF methenamine hippurate 1 gram tablet 1 g PO BID 30 Days Qty: 60 0RF aspirin 81 mg Tablet 81 mg PO DAILY 30 Days Qty: 30 0RF lisinopril 5 mg tablet 5 mg PO DAILY Qty: 30 2RF polyethylene glycol 3350 [Miralax] 17 gram/dose Powder 17 g PO DAILY Qty: 238 0RF metformin 500 mg Tablet,Er Jenna.Retention 24 Hr 500 mg PO DAILY Qty: 30 0RF cholecalciferol (vitamin D3) [Vitamin D3] 50 mcg (2,000 unit) Capsule 2,000 unit PO DAILY Qty: 30 0RF silodosin 8 mg capsule 8 mg PO DAILY 30 Days Qty: 30 0RF PreserVision AREDS 2,148 mcg-113 mg-45 mg-17.4mg Tablet 1 tab PO BID 30 Days Qty: 60 0RF cyanocobalamin (vitamin B-12) 1,000 mcg capsule 1,000 mcg PO DAILY 30 Days Qty: 30 0RF sodium chloride 1,000 mg Tablet,Soluble 1,000 mg PO DAILY 30 Days Qty: 30 0RF Referrals Follow up/Referrals: Nick Dale MD [Primary Care Provider, Family Practice] - See instructions Clinical Impressions Clinical Impression: Hyponatremia, Pneumonia, Orthostasis Stand Alone Forms Stand Alone Forms: Transfer Record - ED Print Language Print Language: Lao Discharge ED Provider: Reyes Smith General Adult HPI General Chief complaint: Weakness Stated complaint: General Weakness Time Seen by Provider: 09/22/24 10:16 Mode of Arrival: EMS Source of Information: Patient Description of Symptoms (Recalled from ER Triage Doc. by RN): he has beeen feeling weak, states he was supposed to go to physical therapy and went today but wasn't able to do anything. Denies any pain anywhere. History of Present Illness HPI narrative: 79-year-old male presents to the ED today via EMS due to feeling weak. states that patient was supposed to go to physical therapy at [facility] today but as soon as they set him up for wheelchair to take him his blood pressure drops to 70/40 and 67/40. Patient has been in and out of rehab in hospital since August 13. He has had pneumonia, UTI and has been from here to [facility] rehab back to the [place] and then to [facility] for rehab. The most he has been up is 20 minutes without his blood pressure dropping. This is all according to his . He does have history of MS, CHF, prostate cancer, pneumonia, diabetes. Patient appears pale but is able to answer alert and oriented questions. He knows the year, where he is and his 's name and his name. Patient denies pain anywhere. Related Data Home Medications ?Medication ?Instructions ?Recorded ?Confirmed vitamin E 400 unit tablet 400 unit PO DAILY 08/13/24 0 08/13/24 Previous Rx's ?Medication ?Instructions ?Recorded acetaminophen 325 mg tablet 650 mg (2 x 325 mg) PO Q4H P PRN 08/17/24 Fever Or Mild Pain (1-3) #90 tabs aspirin 81 mg tablet 81 mg PO DAILY 30 days #30 t abs 08/17/24 atorvastatin 20 mg tablet 20 mg PO HS 30 days #30 tabs 08/17/24 cholecalciferol (vitamin D3) 50 2,000 unit PO DAILY #3 0 caps 08/17/24 mcg (2,000 unit) capsule (Vitamin D3) cyanocobalamin (vitamin B-12) 1,000 mcg PO DAILY 30 da ys #30 caps 08/17/24 1,000 mcg capsule gabapentin 100 mg capsule 200 mg (2 x 100 mg) PO TID 3 0 days 08/17/24 #180 caps lisinopril 5 mg tablet 5 mg PO DAILY #30 tabs 08/17 metformin 500 mg 24 hr 500 mg PO DAILY #30 tabs tablet,extended release (gastric retention) methenamine hippurate 1 gram tablet 1 g PO BID 30 days #60 tabs 08/17/24 polyethylene glycol 3350 17 17 g PO DAILY #238 grams 0 08/17/24 gram/dose oral powder (Miralax) silodosin 8 mg capsule 8 mg PO DAILY 30 days #30 ca ps 08/17/24 sodium chloride 1,000 mg soluble 1,000 mg PO DAILY 30 days #30 tabs 08/17/24 tablet vitamins A,C,K-kqvp-jzwzvs 2,148 1 tab PO BID 30 days #60 tabs 08/17/24 mcg-113 mg-45 mg-17.4 mg tablet (PreserVision AREDS) bisoprolol fumarate 5 mg tablet 5 mg PO DAILY 30 days #30 tabs 09/01/24 famotidine 20 mg tablet 20 mg PO BID #60 tabs Allergies Allergy/AdvReac Type Severity Reaction Status Date / Time No Known Allergies Allergy Verified 07/19/24 13:22 [facility] Disclaimer: The information contained in this section may have been updated after the patient was seen, as this information can be updated by other users. Medical History (Updated 09/22/24 @ 13:17 by Kate Lowery (ED), CONCILIATOR) Diabetes mellitus, type 2 Soft tissue mass Hyponatremia Mass of parotid gland Skin lesions Decreased hearing Anemia Screening for lung cancer Tobacco use Spastic paraparesis Enlarged prostate Macular degeneration Prostate CA GERD (gastroesophageal reflux disease) Diabetes Hypertension Hyperlipidemia Multiple sclerosis Chronic pain Falls COPD (chronic obstructive pulmonary disease) Fracture of right fibula Surgical History (Updated 08/21/24 @ 00:00 by Gwen Rob) History of knee replacement procedure of left knee History of prostate surgery History of appendectomy Family History Other Family history of COPD (chronic obstructive pulmonary disease) Family history of diabetes mellitus type II Family history of hyperlipidemia Family history of hypertension Prostate cancer Social History (Updated 08/13/24 @ 12:16 by Kari Perea RN) Smoking Status: Former smoker tobacco type: cigarettes smoking status stop date: 2020 alcohol intake: current alcohol intake frequency: holidays/special occasions only current occupational status: other Travel in the last 8 weeks?: None Have you lived/traveled outside US in past 30 days?: No Contact w/someone who lives/traveled outside US past 30 days?: No Exposure to someone with infectious disease in past 14 days?: No Do you have a fever (greater than 100.4 F or 38 C)?: No Have you tested positive for COVID-19?: No Exposed to someone with COVID-19 in past 14 days?: No Do you have a sore throat?: No Do you have a cough?: No Do you have any weakness?: No Do you have any diarrhea?: No Are you experiencing any unusual bleeding?: No Do you have any muscle aches/pain?: No Do you have any abdominal pain?: No Are you experiencing loss of taste or smell?: No Other Medical History Have you received the Flu Vaccine for this season: No Have you received the Pneumonia Vaccine: No ROS Obtained: Yes Systems reviewed as appropriate & no additional complaints except as documented Constitutional Constitutional: Reports as per HPI Physical Exam General General appearance: alert Comment: Appears weak Head Head exam: atraumatic and normocephalic Eye Eye exam: Present normal appearance, PERRL and EOMI ENT ENT exam: Present normal oropharynx and mucous membranes moist Neck Neck exam: Present full ROM and trachea midline Chest Chest inspection: Present normal inspection Respiratory Respiratory exam: Present other (Crackles heard) Cardiovascular Cardiovascular exam: Present regular rate, normal rhythm, normal heart sounds, +S1 and +S2 Abdominal Exam Abdominal exam: Present soft and normal bowel sounds Extremities Exam Extremities exam: Present normal inspection, full ROM and normal capillary refill Neurological Exam Neurological exam: Present alert and oriented X3 Skin Skin exam: Present warm, dry and other (Pale) Medical Decision Making Medical Records Medical records reviewed: Yes I reviewed the patient's medical records. Screening: Per USPSTF and CDC recommendations, given the prevalence of disease in our region, it is our hospital?s policy to screen for HIV and viral Hepatitis for all patients aged 18 and over and those with ongoing risk factors. Vick Inquiry Pt receiving controlled substance: No Vick was queried for this patient: No Vital Signs: 09/22/24 09:56 09/22/24 10:00 09/22/24 10:00 Temperature 98.3 F Temperature Source Oral Pulse Rate 69 68 Pulse Rate [Orthostatic Lying] Pulse Rate [Orthostatic Sitting] Pulse Rate [Right Brachial] 67 Respiratory Rate 16 14 Blood Pressure 126/63 130/59 L Blood Pressure [Orthostatic Lying] Blood Pressure [Orthostatic Sitting] Blood Pressure [Right Arm] 126/63 Blood Pressure Mean [Right Arm] 84 Blood Pressure Source [Right Arm] Automatic Cuff 02 Sat by Pulse Oximetry 95 94 L 94 L Oxygen Delivery Method Room Air 09/22/24 10:30 09/22/24 11:03 09/22/24 11:13 Temperature Temperature Source Pulse Rate 69 69 Pulse Rate [Orthostatic Lying] Pulse Rate [Orthostatic Sitting] Pulse Rate [Right Brachial] Respiratory Rate 21 17 16 Blood Pressure 136/65 136/61 109/48 L Blood Pressure [Orthostatic Lying] Blood Pressure [Orthostatic Sitting] Blood Pressure [Right Arm] Blood Pressure Mean [Right Arm] Blood Pressure Source [Right Arm] 02 Sat by Pulse Oximetry 96 96 Oxygen Delivery Method 09/22/24 11:23 09/22/24 11:30 09/22/24 12:00 Temperature Temperature Source Pulse Rate 69 72 Pulse Rate [Orthostatic Lying] 71 Pulse Rate [Orthostatic Sitting] 72 Pulse Rate [Right Brachial] Respiratory Rate 17 17 Blood Pressure 144/67 H 145/66 H Blood Pressure [Orthostatic Lying] 136/61 Blood Pressure [Orthostatic Sitting] 109/48 L Blood Pressure [Right Arm] Blood Pressure Mean [Right Arm] Blood Pressure Source [Right Arm] 02 Sat by Pulse Oximetry 96 95 Oxygen Delivery Method Room Air 09/22/24 12:30 09/22/24 13:00 Temperature Temperature Source Pulse Rate 72 73 Pulse Rate [Orthostatic Lying] Pulse Rate [Orthostatic Sitting] Pulse Rate [Right Brachial] Respiratory Rate 16 15 Blood Pressure 134/56 L 141/64 H Blood Pressure [Orthostatic Lying] Blood Pressure [Orthostatic Sitting] Blood Pressure [Right Arm] Blood Pressure Mean [Right Arm] Blood Pressure Source [Right Arm] 02 Sat by Pulse Oximetry 94 L 94 L Oxygen Delivery Method Room Air Room Air Lab Data Lab Results 09/22/24 10:52: Lactate 2.3 H 09/22/24 11:13: Urine Color Yellow, Urine Appearance Clear, Urine pH 6.0, Ur Specific [place] 1.025, Urine Protein 1+ A, Urine Glucose (UA) Negative, Urine Ketones Negative, Urine Blood Trace-i, Urine Nitrate Negative, Urine Bilirubin Negative, Urine Urobilinogen 0.2, Ur Leukocyte Esterase 3+ A, Urine RBC 3-5, Urine WBC 20-50, Ur Squamous Epith Cells Occasional, Urine Bacteria 3+ 09/22/24 12:20: SARS-CoV-2 (PCR) Not detected, Influenza A Untype (PCR) Not detected, Influenza Type B (PCR) Not detected 09/22/24 : WBC 9.4, RBC 4.09 L, Hgb 11.3 L, Hct 34.1 L, MCV 83.4, MCH 27.6, MCHC 33.1, RDW 15.5, Plt Count 332, MPV 10.0, Neut % (Auto) 62.4, Lymph % (Auto) 19.4, [place] % (Auto) 7.5, Eos % (Auto) 10.1, Baso % (Auto) 0.3, Neut # (Auto) 5.9, Lymph # (Auto) 1.8, [place] # (Auto) 0.7, Eos # (Auto) 1.0 H, Baso # (Auto) 0.0, ESR 81 H, Sodium 124 L, Potassium 4.4, Chloride 93 L, Carbon Dioxide 25, Anion Gap 10.4, BUN 14, Creatinine 0.90, Estimated Creat Clear 102, Estimated GFR 82, Est GFR ( Amer) 99, Glucose 127 H, Calcium 9.1, Total Bilirubin 1.4 H, AST 20, ALT 17, Alkaline Phosphatase 130 H, Total Creatine Kinase < 20 L, C-Reactive Protein 43.4 H, NT-Pro-B Natriuret Pep 858 H, Total Protein 5.7 L, A lbumin 3.0 L, Globulin 2.7, Albumin/Globulin Ratio 1.1, TSH 0.48, Free T4 1.91 09/22/24 Unknown 09/22/24 Unknown Orders (Tests/Meds): ED MEDICATIONS Generic Name Dose Route Start Last Admin Trade Name Freq PRN Reason Stop Dose Admin Ceftriaxone Sodium 2 gm/ 100 mls @ 200 mls/hr 09/22/24 11:15 09/22/24 11:48 Sodium Chloride IV 10/02/24 11:14 200 mls/hr Q24H LUZ ELENA Administration Azithromycin 500 mg/ Sodium 250 mls @ 250 mls/hr 09/22/24 11:15 09/22/24 12:02 Chloride IV 10/02/24 11:14 250 mls/hr Q24H LUZ ELENA Administration Discontinued Medications Generic Name Dose Route Start Last Admin Trade Name Andreasq PRN Reason Stop Dose Admin Lactated Ringer's 500 mls @ 999 mls/hr 09/22/24 10:40 09/22/24 10:59 Lactated Ringer's 500ml IV 09/22/24 11:10 999 mls/hr .Q31M ONE Administration ORDERS Category Date Time Status POCUS Point of Care (ER Only) Stat Exams 09/22/24 10:45 Completed XR chest portable Stat Exams 09/22/24 10:12 Completed BNP [NT Pro Brain Natriuretic Pep.] Stat Lab 09/22/24 Completed C-Reactive Protein Stat Lab 09/22/24 Completed Complete Blood Count Auto Diff Stat Lab 09/22/24 Completed Comprehensive Metabolic Panel Stat Lab 09/22/24 Completed Creatine Kinase Stat Lab 09/22/24 Completed Erythrocyte Sedimentation Rate Stat Lab 09/22/24 Completed Free T4 (Free Thyroxine) Stat Lab 09/22/24 Completed Lactic Acid Stat Lab 09/22/24 10:52 Completed Rapid PCR Covid and Flu A/B Stat Lab 09/22/24 12:20 Completed TSH [Thyroid Stimulating Hormone] Stat Lab 09/22/24 Completed Urinalysis and Microscopic Stat Lab 09/22/24 11:13 Completed Blood Culture Stat Micro 09/22/24 11:00 Received Urine Culture Stat Micro 09/22/24 11:13 Received Medical Decision Narrative: patient is a 79-year-old male presenting to the emergency department for evaluation of via EMS from [facility] for evaluation of weakness, hypotension. Patient was sent to [facility] after [id number] from [facility], [facility] and the [place] for pneumonia and UTI. Patient arrives to the ER with low blood pressure, afebrile. Differential diagnosis includes orthostasis, pneumonia, sepsis, UTI, among others. Workup will be conducted with hematologic labs, specific imaging. Initial inventions include crystalloid bolus, analgesics, antibiotics. Initial workup reviewed by me hematologic labs are remarkable for normal white count, normal BUN and creatinine. Patient does have a slightly elevated BNP at 858. Patient has a leukocyte positive UTI. Patient does have history of CHF so I did not give him excessive amount of fluids. We did give him 500 mL. Imaging informally interpreted by me and remarkable for pneumonia. Formal imaging read remarkable for acute pneumonia in his right lung base. Upon repeat evaluation patient's pain is improved, however patient is orthostatic with lying blood pressure at 136/61 and sitting blood pressure at 109/48. Patient was unable to stand. Patient will be admitted to the [facility] as [facility] does not have any beds at this time. I discussed this with Kari at the [facility]. She was okay excepting patient after the COVID swab was resulted. I did talk to patient and family about this they wanted to stay here but we do not have beds. Patient is stable for transfer to the [place]. I did discuss care with Dr. Smith throughout ER visit. Critical Care Critical Care Time Critical Care Time: No
--- OUTSIDE RECORDS SUMMARY | 2024-09-22 10:18 | XMS_ITS | Encounter Summary ---
Author Organization [employer] ([place], [place], [place], [place]) Address [address] [place] [address] Care Team Providers Care Biological Scientist Name Role Phone Marcelino Mobley MD Primary Care Provider [phone] Encounter Details Date Type Department Care Team (Late st Contact Info) Description 02/17/2019 Transcribed Document [facility] Family Medicine [facility] [place] [address] ProviderEphraim MD [address] [place] [id number] Social History Tobacco Use Types Packs/Day Years Used Date Smoking Tobacco: Never Assessed Sex and Gender Information Value Date Recorded Sex Assigned at Not on file Legal Sex Male 4:11 PM CDT Gender Identity Not on file Sexual Orientation Not on file documented as of this encounter Miscellaneous Notes * [employer] Conversion Note - Historical ProviderMD - 02/17/2019 2:02 PM EPIC INTERFACE ANALYST Nursing Discharge Summary Entered On: 02/17/2019 14:02 [...] - 02/17/2019 14:02 EST Electronically signed by [facility] Sjh Conversion Audio Visual Aids Director Cerner at 07/10/2022 9:51 PM CDT documented in this encounter Plan of Treatment Upcoming Encounters Date Type Department Care Team (Late st Contact Info) Description 10/11/2024 8:00 AM EDT Appointment [facility] Outpatient Treatment [address] [place] [address] documented as of this encounter Visit Diagnoses Not on filedocumented in this encounter Care Teams Biological Scientist Relationship Specialty Start Date End Date Marcelino Mobley MD [address] [place] [address] PCP - General Emergency Medicine 03/08/22 documented as of this encounter
--- OUTSIDE RECORDS SUMMARY | 2024-09-22 10:18 | XMS_ITS | Encounter Summary ---
Author Organization [employer] ([place], [place], [place], [place]) Address [address] [place] [address] Care Team Providers Care Deburring Machine Operator Name Role Phone Marcelino Mobley MD Primary Care Provider [phone] Encounter Details Date Type Department Care Team (Late st Contact Info) Description 03/03/2019 Transcribed Document [facility] [place] [facility] [place] [address] ProviderEphrami MD [address] [place] [id number] Social History Tobacco Use Types Packs/Day Years Used Date Smoking Tobacco: Never Assessed Sex and Gender Information Value Date Recorded Sex Assigned at Not on file Legal Sex Male 4:11 PM CDT Gender Identity Not on file Sexual Orientation Not on file documented as of this encounter Miscellaneous Notes * [employer]ner Conversion Note - Historical ProviderMD - 03/03/2019 12:38 PM MOLD CARPENTER Nursing Discharge Summary Entered On: 03/03/2019 12:39 [...] CLAUDIA TEMPLETON RN - 03/03/2019 12:38 EST documented in this encounter Plan of Treatment Upcoming Encounters Date Type Department Care Team (Late st Contact Info) Description 10/11/2024 8:00 AM EDT Appointment [facility] Outpatient Treatment [address] [place] [address] documented as of this encounter Visit Diagnoses Not on filedocumented in this encounter Care Teams Deburring Machine Operator Relationship Specialty Start Date End Date Marcelino Mobley MD [address] [place] [address] PCP - General Emergency Medicine 03/08/22 documented as of this encounter
--- OUTSIDE RECORDS SUMMARY | 2024-09-22 10:19 | XMS_ITS | Data Portability ---
Author Organization [facility] CHRIS MancillaS [place] CLOSED Address [address] [place] [address] Care Team Providers Care L Tacker Name Role Phone NICK NOLASCO Primary Care [...] He is scheduled for Ocrevus infusion at [facility] outpatient on September 07 per 's report 3. follow up with me in 6 months [address] Jennifer Saab in [place] Not available 08/26/2023 09:21:23 10/16/2023 10/16/2023 Urine for culture and sensitivity. Antifungal/ster oid cream for jock itch. Not available 11/02/2023 15:23:50 12/04/2023 12/04/2023 Urine for culture and sensitivity Antifungal/ster oid cream for jock itch, improved not resolved Androgen deprivation therapy for prostate carcinoma Methenamine for UTI suppression. Not available 12/04/2023 19:36:35 02/24/2024 02/24/2024 1. Multiple sclerosis 2. Disabled adult 3. Disabled walking, uses walker 4. Spastic paraparesis gait 5. Needs assist for some personal care 6. skilled nursing current drug therapy on Ocrevus 7. High risk medication, monitoring needed for safety Plan 1. Submit blood tests CBC, CMP, IgG today or tomorrow in our lab 2. Ocrevus is scheduled Mar 08 or 3. I will call with blood test results 4. I advised I retire Apr 23 5. Follow up in [address] Tiarra Pratt [email or web address] Not available 02/24/2024 13:30:01 07/29/2024 07/29/2024 - [...] available Not available RECHECK 2024 02:00P Mellissa DIAMOND MD Not available Not available Not available Lab culture, urine 2024 025 [email or web address] 4 [facility], [address] [place] [address], [address], 08/03/2024 19:18:11 urinalysi s panel, auto 2024 025 4 [facility] [place] Extended [facility] With [facility], [address] [place] [address] Dr [address]kins, [place], [address], 07/29/2024 14:38:36 CBC w/ auto diff 2023 024 [facility], [address] [place] [address], [id number], 02/24/2024 12:27:49 CMP, serum or plasma 2023 024 [facility], [address] [place] [address], [address], 02/24/2024 11:55:24 igg, quantitat rani, serum 2023 024 [facility], [address] [place] [address], [address], 02/24/2024 11:55:21 urinalysi s panel, auto 2023 024 [email or web address] 4 [facility] Extended Services With [address]kins, [place], [address], 12/05/2023 13:50:22 culture, urine 2023 024 [email or web address] 4 [facility], [address] [place] [address], [address], 12/05/2023 13:50:22 urinalysi s panel, auto 2023 024 [email or web address] 4 [facility] Extended Services With [facility], [address] [place] [address] Dr Wilkins, [place], [address], 10/16/2023 15:13:59 culture, urine 2023 024 [email or web address] 4 [facility], [address] [place] [address], [address], 10/26/2023 12:36:11 Referral None recorded. Procedures None recorded. Surgeries None recorded. Imaging None recorded. Medication Orders methenami ne hippurate 1 gram tablet 2024 025 [facility] [address], [facility] [place], [address], 07/29/2024 14:38:43 silodosin 8 mg capsule 2024 025 [facility] [address], [address] [place], [address], 07/29/2024 14:38:42 methenami ne hippurate 1 gram tablet 2023 024 [place] [address], [address] [place] [address], [address], 02/24/2024 08:16:51 clotrimaz ole-betam ethasone 1 %-0.05 % topical cream 2023 024 [place] [address], [address] [place] [address], [address], 02/24/2024 08:18:51 Diflucan 150 mg tablet 2023 024 [place] [address], [address] [place] [address], [address], 02/24/2024 08:18:55 silodosin 8 mg capsule 2023 024 [email or web address] 4 [place] [address], [address] [place] [address], [address], 12/05/2023 13:50:22 clotrimaz ole-betam ethasone 1 %-0.05 % topical cream 2023 024 [place] [address], [address] [place] [address], [address], 02/24/2024 08:14:59 silodosin 8 mg capsule 2023 024 [place] [address], [address] [place] [address], [address], 10/16/2023 15:21:57 Patient TargetsNo targets recorded. Patient Instructions Encounter Date Encounter Id Patient Instructions Last Modified By Organization Details Last Modified Time 08/26/2023 [id number] CATEGORY DESCRIPTION MINUTES Prepare to see the patient (e.g. review of tests) review past med records, review 2022 lab results 5 Obtain/review separately obtained history Perform medically appropriate exam/evaluation Order medications, tests, or procedures will mail lab requisition to patient to complete in her local hospital outpatient services 5 Tube Room Cashier/educate the patient/family/car egiver Telehealth connection for 11 minutes 10 Refer/communicate w/other healthcare professionals Document clinical information into health record 5 Non-billable independent interp of results Non-billable care coordination TOTAL TIME 25 62541 (15-29) 61659 (30-44) 33826 (45-59) 26419 (60-74) 19127 (10-19) 21694 (20-29) 10427 (30-39) 44568 (40-54) Not available 08/26/2023 09:03:40 12/04/2023 [id number] learning about healthy weight [email or web address] Not available 12/04/2023 13:49:18 07/29/2024 [id number] - Drink more augustus er every day; keep up the good work! - If symptoms like strong-smelling urine do not improve, or get worse, seek help. - continue taking prostate and UTI pills. - Remember the follow-up shot today. [email or web address] Not available 08/08/2024 15:19:40 Reason for Referral None Reported. Results Created Date Observation Date Name Description Value Unit Range Abnormal Flag Note LastModifiedBy Organization Detail LastModifiedTime 10/16/19 24 10/16/2023 URINE CULTU RE enterococcus faecalis Organi sm: Entero coccus faecal is Not Available [facility] [place], [address], 10/20/2023 10:51:39 10/16/19 24 10/20/2023 URINE CULTU RE urine culture abnormal ISOLA TE #1 COLON Y COUNT : > 100,0 00 CFU/M L Proba ble Strep tococ cus sp.; ID and sensi tivit y in progr ess. Enter ococc us faeca lis Not Available [facility] [address] [place], [address], 10/20/2023 10:51:39 10/16/19 24 10/20/2023 URINE CULTU RE ampicillin <=2 ug/mL susceptib le Not Available [facility] [address] [place], [address], 10/20/2023 10:51:39 10/16/19 24 10/20/2023 URINE CULTU RE ciprofloxaci n >2 ug/mL resistant Not Available [facility] [address] [place] [address], [address], 10/20/2023 10:51:39 10/16/19 24 10/20/2023 URINE CULTU RE levofloxacin >4 ug/mL resistant Not Available [facility] [address] [place] [address], [address], 10/20/2023 10:51:39 10/16/19 24 10/20/2023 URINE CULTU RE nitrofuranto in <=32 ug/mL susceptib le Not Available [facility] [address] [place] [address], [address], 10/20/2023 10:51:39 10/16/19 24 10/20/2023 URINE CULTU RE penicillin 2 ug/mL susceptib le Not Available [facility] [address] [place] [address], [address], 10/20/2023 10:51:39 10/16/19 24 10/20/2023 URINE CULTU RE rifampin 2 ug/mL intermedi ate Not Available [facility] [address] [place] [address], [address], 10/20/2023 10:51:39 10/16/19 24 10/20/2023 URINE CULTU RE tetracycline >8 ug/mL resistant Not Available [facility] [address] [place] [address], [address], 10/20/2023 10:51:39 10/16/19 24 10/20/2023 URINE CULTU RE vancomycin 1 ug/mL susceptib le Not Available [facility] [address] [place] [address], [address], 10/20/2023 10:51:39 10/16/19 24 10/16/2023 urina lysis panel , auto Unknown Analyte Clean Catch Not Available [facility] [place] Extended Services With [address], [place], [address], 10/16/2023 15:07:53 10/16/19 24 10/16/2023 urina lysis panel , auto Unknown Analyte Yellow Not Available [facility] Extended Services With [address] [place], [address], 10/16/2023 15:07:53 10/16/19 24 10/16/2023 urina lysis panel , auto Unknown Analyte Cloudy Not Available [facility] Extended Services With [address] [place], [address], 10/16/2023 15:07:53 10/16/19 24 10/16/2023 urina lysis panel , auto Unknown Analyte 1.015 Not Available [facility] Extended Services With [address] [place], [address], 10/16/2023 15:07:53 10/16/19 24 10/16/2023 urina lysis panel , auto Unknown Analyte 1.003- 1.035 Not Available [facility] Extended Services With [address] [place], [address], 10/16/2023 15:07:53 10/16/19 24 10/16/2023 urina lysis panel , auto Unknown Analyte 6.0 Not Available [facility] Extended Services With [address] [place], [address], 10/16/2023 15:07:53 10/16/19 24 10/16/2023 urina lysis panel , auto Unknown Analyte 5.0-8. 0 Not Available [facility] Extended Services With [address] [place], [address], 10/16/2023 15:07:53 10/16/19 24 10/16/2023 urina lysis panel , auto Unknown Analyte 500 Ade/ul (++) Not Available [facility] Extended Services With [address], [place], [address], 10/16/2023 15:07:53 10/16/19 24 10/16/2023 urina lysis panel , auto Unknown Analyte Negati ve Not Available [facility] Extended Services With [address] [place], [address], 10/16/2023 15:07:53 10/16/19 24 10/16/2023 urina lysis panel , auto Unknown Analyte Negati ve Not Available [facility] Extended Services With [address] [place], [address], 10/16/2023 15:07:53 10/16/19 24 10/16/2023 urina lysis panel , auto Unknown Analyte Negati ve Not Available [facility] Extended Services With [address], [place], [address], 10/16/2023 15:07:53 10/16/19 24 10/16/2023 urina lysis panel , auto Unknown Analyte Negati ve Not Available [facility] Extended Services With [address] [place], [address], 10/16/2023 15:07:53 10/16/19 24 10/16/2023 urina lysis panel , auto Unknown Analyte Negati ve Not Available [facility] Extended Services With [address] [place], [address], 10/16/2023 15:07:53 10/16/19 24 10/16/2023 urina lysis panel , auto Unknown Analyte Normal Not Available [facility] Extended Services With [address] [place], [address], 10/16/2023 15:07:53 10/16/19 24 10/16/2023 urina lysis panel , auto Unknown Analyte Normal Not Available [facility] Extended Services With [address] [place], [address], 10/16/2023 15:07:53 10/16/19 24 10/16/2023 urina lysis panel , auto Unknown Analyte Negati ve Not Available [facility] Extended Services With [address] [place], [address], 10/16/2023 15:07:53 10/16/19 24 10/16/2023 urina lysis panel , auto Unknown Analyte Negati ve Not Available [facility] Extended Services With [address] [place], [address], 10/16/2023 15:07:53 10/16/19 24 10/16/2023 urina lysis panel , auto Unknown Analyte 1 mg/dl Not Available [facility] Extended Services With [address] [place], [address], 10/16/2023 15:07:53 10/16/19 24 10/16/2023 urina lysis panel , auto Unknown Analyte Normal 1 mg/dl Not Available [facility] Extended Services With [address] [place], [address], 10/16/2023 15:07:53 10/16/19 24 10/16/2023 urina lysis panel , auto Unknown Analyte Negati ve Not Available [facility] Extended Services With [address] [place], [address], 10/16/2023 15:07:53 10/16/19 24 10/16/2023 urina lysis panel , auto Unknown Analyte Negati ve Not Available [facility] Extended Services With [address], [place], [address], 10/16/2023 15:07:53 10/16/19 24 10/16/2023 urina lysis panel , auto Unknown Analyte 50 Russell/ul Not Available [facility] Extended Services With [address], [place], [address], 10/16/2023 15:07:53 10/16/19 24 10/16/2023 urina lysis panel , auto Unknown Analyte Negati ve Not Available [facility] Extended Services With [address], [place], [address], 10/16/2023 15:07:53 12/04/19 24 12/04/2023 URINE CULTU RE klebsiella pneumoniae Organi sm: Klebsi pedro pneumo niae Not Available [facility] [address] [place], [address], 12/08/2023 08:01:35 12/04/19 24 12/06/2023 URINE CULTU RE urine culture abnormal ISOLA TE #1 COLON Y COUNT : > 100,0 00 CFU/M L Proba ble Gram Negat rani Bacil lu. ID and sensi tivit y in progr ess. See Diablo te Resul t(s) Below Klebs iella pneum oniae Not Available [facility] [address] [place], [address], 12/08/2023 08:01:35 12/04/19 24 12/06/2023 URINE CULTU RE amox/K clav'ate(C) <=8/4 ug/mL susceptib le Not Available [facility] [address] [place], [address], 12/08/2023 08:01:35 12/04/19 24 12/06/2023 URINE CULTU RE cefazolin <=2 ug/mL susceptib le Not Available [facility] [address] [place] [address], [address], 12/08/2023 08:01:35 12/04/19 24 12/06/2023 URINE CULTU RE ceftazidime <=1 ug/mL susceptib le Not Available [facility] [address] [place] [address], [address], 12/08/2023 08:01:35 12/04/19 24 12/06/2023 URINE CULTU RE ceftriaxone <=1 ug/mL susceptib le Not Available [facility] [address] [place] [address], [address], 12/08/2023 08:01:35 12/04/19 24 12/06/2023 URINE CULTU RE cefuroxime <=4 ug/mL susceptib le Not Available [facility] [address] [place] [address], [address], 12/08/2023 08:01:35 12/04/19 24 12/06/2023 URINE CULTU RE ciprofloxaci n <=0.25 ug/mL susceptib le Not Available [facility] [address] [place] [address], [address], 12/08/2023 08:01:35 12/04/19 24 12/06/2023 URINE CULTU RE gentamicin <=4 ug/mL susceptib le Not Available [facility] [address] [place] [address], [address], 12/08/2023 08:01:35 12/04/19 24 12/06/2023 URINE CULTU RE imipenem <=1 ug/mL susceptib le Not Available [facility] [address] [place] [address], [address], 12/08/2023 08:01:35 12/04/19 24 12/06/2023 URINE CULTU RE levofloxacin <=0.5 ug/mL susceptib le Not Available [facility] [address] [place] [address], [address], 12/08/2023 08:01:35 12/04/19 24 12/06/2023 URINE CULTU RE nitrofuranto in 64 ug/mL intermedi ate Not Available [facility] [address] [place] [address], [address], 12/08/2023 08:01:35 12/04/19 24 12/06/2023 URINE CULTU RE piperacillin /alex <=16 ug/mL susceptib le Not Available [facility] [address] [place] [address], [address], 12/08/2023 08:01:35 12/04/19 24 12/06/2023 URINE CULTU RE tetracycline <=4 ug/mL susceptib le Not Available [facility] [address] [place] [address], [address], 12/08/2023 08:01:35 12/04/19 24 12/06/2023 URINE CULTU RE tobramycin <=2 ug/mL susceptib le Not Available [facility] [address] [place] [address], [address], 12/08/2023 08:01:35 12/04/19 24 12/06/2023 URINE CULTU RE trimeth/sulf a <=2/38 ug/mL susceptib le Not Available [facility] [address] [place] [address], [address], 12/08/2023 08:01:35 12/04/19 24 12/04/2023 urina lysis panel , auto Unknown Analyte Clean Catch Not Available [facility] [place] [facility] With [address] [place], [place], [address], 12/04/2023 12:12:20 12/04/19 24 12/04/2023 urina lysis panel , auto Unknown Analyte Yellow Not Available [facility] Extended Services With [address] [place], [address], 12/04/2023 12:12:20 12/04/19 24 12/04/2023 urina lysis panel , auto Unknown Analyte Cloudy Not Available [facility] Services With [address] [place], [address], 12/04/2023 12:12:20 12/04/19 24 12/04/2023 urina lysis panel , auto Unknown Analyte 1.020 Not Available [facility] Extended Services With [address] [place], [address], 12/04/2023 12:12:20 12/04/19 24 12/04/2023 urina lysis panel , auto Unknown Analyte 1.003- 1.035 Not Available [facility] Services With [address] [place], [address], 12/04/2023 12:12:20 12/04/19 24 12/04/2023 urina lysis panel , auto Unknown Analyte 5.0 Not Available [facility] Services With [address] [place], [address], 12/04/2023 12:12:20 12/04/19 24 12/04/2023 urina lysis panel , auto Unknown Analyte 5.0-8. 0 Not Available [facility] Extended Services With [address] [place], [address], 12/04/2023 12:12:20 12/04/19 24 12/04/2023 urina lysis panel , auto Unknown Analyte 500 Ade/ul (++) Not Available [facility] Services With [address] [place], [address], 12/04/2023 12:12:20 12/04/19 24 12/04/2023 urina lysis panel , auto Unknown Analyte Negati ve Not Available [facility] Services With [address], [place], [address], 12/04/2023 12:12:20 12/04/19 24 12/04/2023 urina lysis panel , auto Unknown Analyte POSITI VE (Abnor mal) Not Available [facility] Services With [address] [place], [address], 12/04/2023 12:12:20 12/04/19 24 12/04/2023 urina lysis panel , auto Unknown Analyte Negati ve Not Available [facility] Services With [address] [place], [address], 12/04/2023 12:12:20 12/04/19 24 12/04/2023 urina lysis panel , auto Unknown Analyte Negati ve Not Available [facility] Services With [address] [place], [address], 12/04/2023 12:12:20 12/04/19 24 12/04/2023 urina lysis panel , auto Unknown Analyte Negati ve Not Available [facility] Services With [address] [place], [address], 12/04/2023 12:12:20 12/04/19 24 12/04/2023 urina lysis panel , auto Unknown Analyte Normal Not Available [facility] Services With [address] [place], [address], 12/04/2023 12:12:20 12/04/19 24 12/04/2023 urina lysis panel , auto Unknown Analyte Normal Not Available [facility] Services With [address] [place], [address], 12/04/2023 12:12:20 12/04/19 24 12/04/2023 urina lysis panel , auto Unknown Analyte Negati ve Not Available [facility] Services With [address] [place], [address], 12/04/2023 12:12:20 12/04/19 24 12/04/2023 urina lysis panel , auto Unknown Analyte Negati ve Not Available [facility] Services With [address] [place], [address], 12/04/2023 12:12:20 12/04/19 24 12/04/2023 urina lysis panel , auto Unknown Analyte Normal Not Available [facility] Services With [address] [place], [address], 12/04/2023 12:12:20 12/04/19 24 12/04/2023 urina lysis panel , auto Unknown Analyte Normal 1 mg/dl Not Available [facility] Services With [address] [place], [address], 12/04/2023 12:12:20 12/04/19 24 12/04/2023 urina lysis panel , auto Unknown Analyte Negati ve Not Available [facility] Services With [address] [place], [address], 12/04/2023 12:12:20 12/04/19 24 12/04/2023 urina lysis panel , auto Unknown Analyte Negati ve Not Available [facility] Extended Services With [address] [place], [address], 12/04/2023 12:12:20 12/04/19 24 12/04/2023 urina lysis panel , auto Unknown Analyte Negati ve Not Available [facility] [place] Extended Services With [address], [place], [address], 12/04/2023 12:12:20 12/04/19 24 12/04/2023 urina lysis panel , auto Unknown Analyte Negati ve Not Available [facility] Services With [address], [place], [address], 12/04/2023 12:12:20 02/24/20 24 02/24/2024 IGG IgG 768 mg/dL 700-16 00 normal Not Available [facility] [address] [place] [address], [address], 02/24/2024 11:55:21 02/24/20 24 02/24/2024 COMP. METAB OLIC PANEL glucose 144 mg/dL 74-100 high Not Available [facility] [address] [place] [address], [address], 02/24/2024 11:55:23 02/24/20 24 02/24/2024 COMP. METAB OLIC PANEL blood urea nitrogen 17 mg/dL 6-20 normal Not Available [facility] [address] [place] [address], [address], 02/24/2024 11:55:23 02/24/20 24 02/24/2024 COMP. METAB OLIC PANEL creatinine 0.94 mg/dL 0.70-1 .28 normal Not Available [facility] [address] [place] [address], [address], 02/24/2024 11:55:23 02/24/20 24 02/24/2024 COMP. METAB OLIC PANEL BUN/creatini ne ratio 18 (calc ) 10-20 normal Not Available [facility] [address] [place] [address], [address], 02/24/2024 11:55:23 02/24/20 24 02/24/2024 COMP. METAB OLIC PANEL sodium 132 mmol/ L 136-14 5 low Not Available [facility] [address] [place] [address], [address], 02/24/2024 11:55:23 02/24/20 24 02/24/2024 COMP. METAB OLIC PANEL potassium 4.3 mmol/ L 3.4-5. 0 normal Not Available [facility] [address] [place] [address], [address], 02/24/2024 11:55:23 02/24/20 24 02/24/2024 COMP. METAB OLIC PANEL chloride 99 mmol/ L 98-107 normal Not Available [facility] [address] [place] [address], [address], 02/24/2024 11:55:23 02/24/20 24 02/24/2024 COMP. METAB OLIC PANEL carbon dioxide 24 mmol/ L 22-31 normal Not Available [facility] [address] [place] [address], [address], 02/24/2024 11:55:23 02/24/20 24 02/24/2024 COMP. METAB OLIC PANEL anion gap 9 (calc ) 7-25 normal Not Available [facility] [address] [place] [address], [address], 02/24/2024 11:55:23 02/24/20 24 02/24/2024 COMP. METAB OLIC PANEL calcium 9.0 mg/dL 8.6-10 .2 normal Not Available [facility] [address] [place] [address], [address], 02/24/2024 11:55:23 02/24/20 24 02/24/2024 COMP. METAB OLIC PANEL total protein 6.4 g/dL 6.4-8. 3 normal Not Available [facility] [address] [place] [address], [address], 02/24/2024 11:55:23 02/24/20 24 02/24/2024 COMP. METAB OLIC PANEL albumin 3.6 g/dL 3.5-5. 2 normal Not Available [facility] [address] [place] [address], [address], 02/24/2024 11:55:23 02/24/20 24 02/24/2024 COMP. METAB OLIC PANEL globulin 2.8 1.5-4. 5 normal Not Available [facility] [address] [place] [address], [address], 02/24/2024 11:55:23 02/24/20 24 02/24/2024 COMP. METAB OLIC PANEL albumin/glob ulin ratio 1.3 (calc ) 1.1-2. 5 normal Not Available [facility] [address] [place] [address], [address], 02/24/2024 11:55:23 02/24/20 24 02/24/2024 COMP. METAB OLIC PANEL bilirubin, total 0.7 mg/dL 0.1-1. 2 normal Not Available [facility] [address] [place] [address], [address], 02/24/2024 11:55:23 02/24/20 24 02/24/2024 COMP. METAB OLIC PANEL alkaline phosphatase 144 U/L 40-129 high Not Available [facility] [address] [place], [place] [address], [address], 02/24/2024 11:55:23 02/24/20 24 02/24/2024 COMP. METAB OLIC PANEL AST 12 U/L 0-40 normal Not Available [facility] [address] [place] [address], [address], 02/24/2024 11:55:23 02/24/20 24 02/24/2024 COMP. METAB OLIC PANEL ALT 20 U/L 0-41 normal Not Available [facility] [address] [place], [address], 02/24/2024 11:55:23 02/24/20 24 02/24/2024 COMP. METAB OLIC PANEL GFR 83 >= 60 normal NOT E New calcu latio n for GFR (CKD- EPI 2020) is formu lated witho ut race adjus tment facto rs at the recom menda tion of the [employer] ation and Amvaibhav Mandele ty of Nephr ology . This calcu latio n has not been valid ated in pregn ant women . For pedia tric patie nts refer to https :[email or web address] [email or web address] [email or web address]/lux sidhu s/CHALINOO QI/gf r_cal culat orPed Not Available [facility] [address] [place] [address], [address], 02/24/2024 11:55:23 02/24/20 24 02/24/2024 COMPL ETE BLOOD COUNT white blood cells 9.6 10*3/ uL 3.8-10 .8 normal RESUL TS RECHE CKED Hemog mer obtai heather after warmi ng to 37 C. No moscoso e. Not Available [facility] [address] [place] [address], [address], 02/24/2024 12:27:49 02/24/20 24 02/24/2024 COMPL ETE BLOOD COUNT red blood cells 4.24 10*6/ uL 4.20-5 .80 normal Not Available [facility] [address] [place], [address], 02/24/2024 12:27:49 02/24/20 24 02/24/2024 COMPL ETE BLOOD COUNT hemoglobin 12.4 g/dL 14.0-1 8.0 low Not Available [facility] [address] [place] [address], [address], 02/24/2024 12:27:49 02/24/20 24 02/24/2024 COMPL ETE BLOOD COUNT hematocrit 36.3 % 40.0-5 2.0 low Not Available [facility] [address] [place] [address], [address], 02/24/2024 12:27:49 02/24/20 24 02/24/2024 COMPL ETE BLOOD COUNT MCV 86 fL 80-100 normal Not Available [facility] [address] [place] [address], [address], 02/24/2024 12:27:49 02/24/20 24 02/24/2024 COMPL ETE BLOOD COUNT MCH 29 pg 26-35 normal Not Available [facility] [address] [place] [address], [address], 02/24/2024 12:27:49 02/24/20 24 02/24/2024 COMPL ETE BLOOD COUNT MCHC 34 g/dL 32-36 normal Not Available [facility] [address] [place] [address], [address], 02/24/2024 12:27:49 02/24/20 24 02/24/2024 COMPL ETE BLOOD COUNT RDW 15.1 % 11.0-1 5.0 high Not Available [facility] [address] [place] [address], [address], 02/24/2024 12:27:49 02/24/20 24 02/24/2024 COMPL ETE BLOOD COUNT MPV - fL 6.2-10 .5 abnormal Unabl e to obtai n instr ument MPV. Not Available [facility] [address] [place] [address], [address], 02/24/2024 12:27:49 02/24/20 24 02/24/2024 COMPL ETE BLOOD COUNT platelet count - 10*3/ uL 150-40 0 abnormal Unabl e to repor t instr ument plate let count due to plate let aggre gatio n in EDTA. Plate lets appea r: CLUMP ED If recol lecti on is lucia ed - pleas e order test code CPLT. Not Available [facility] [address] [place] [address], [address], 02/24/2024 12:27:49 02/24/20 24 02/24/2024 COMPL ETE BLOOD COUNT neutrophil,a bsolute 5.4 10*3/ uL 1.6-8. 4 normal Not Available [facility] [address] [place] [address], [address], 02/24/2024 12:27:49 02/24/20 24 02/24/2024 COMPL ETE BLOOD COUNT lymphocyte,a bsolute 2.7 10*3/ uL 0.4-5. 1 normal Not Available [facility] [address] [place] [address], [address], 02/24/2024 12:27:49 02/24/20 24 02/24/2024 COMPL ETE BLOOD COUNT monocyte,abs olute 0.6 10*3/ uL 0.0-1. 2 normal Not Available [facility] [address] [place] [address], [address], 02/24/2024 12:27:49 02/24/20 24 02/24/2024 COMPL ETE BLOOD COUNT eosinophil,a bsolute 0.7 10*3/ uL 0.0-0. 8 normal Not Available [facility] [address] [place] [address], [address], 02/24/2024 12:27:49 02/24/20 24 02/24/2024 COMPL ETE BLOOD COUNT basophil,abs olute 0.1 10*3/ uL 0.0-0. 3 normal Not Available [facility] [address] [place] [address], [address], 02/24/2024 12:27:49 02/24/20 24 02/24/2024 COMPL ETE BLOOD COUNT % neutrophils 56.8 % 42.0-7 8.0 normal Not Available [facility] [address] [place] [address], [address], 02/24/2024 12:27:49 02/24/20 24 02/24/2024 COMPL ETE BLOOD COUNT % lymphocytes 28.7 % 11.0-4 7.0 normal Not Available [facility] [address] [place] [address], [address], 02/24/2024 12:27:49 02/24/20 24 02/24/2024 COMPL ETE BLOOD COUNT % monocytes 6.0 % 0.0-11 .0 normal Not Available [facility] [address] [place] [address], [address], 02/24/2024 12:27:49 02/24/20 24 02/24/2024 COMPL ETE BLOOD COUNT % eosinophils 7.5 % 0.0-7. 0 high Not Available [facility] [address] [place] [address], [address], 02/24/2024 12:27:49 02/24/20 24 02/24/2024 COMPL ETE BLOOD COUNT % basophils 1.0 % 0.0-3. 0 normal Not Available [facility] [address] [place] [address], [address], 02/24/2024 12:27:49 02/24/20 24 02/24/2024 COMPL ETE BLOOD COUNT nucleated red cells 0.1 % 0.0-0. 9 normal Not Available [facility] [address] [place] [address], [address], 02/24/2024 12:27:49 02/24/20 24 02/24/2024 COMPL ETE BLOOD COUNT nucleated RBCs, absolute 0.01 10*3/ uL not estab. normal Not Available [facility] [address] [place] [address], [address], 02/24/2024 12:27:49 02/24/20 24 02/24/2024 MORPH OLOGY anisocytosis MODERA TE abnormal Not Available [facility] [address] [place] [address], [place], [address], 02/24/2024 12:27:52 07/30/1907/29/2024 URINE CULTU RE escherichia coli Organi sm: Escher ichia coli Not Available [facility] [address] [place], [address], 07/31/2024 15:31:54 07/30/19 25 07/31/2024 URINE CULTU RE urine culture abnormal ISOLA TE #1 COLON Y COUNT : > 100,0 00 CFU/M L Proba ble Gram Negat rani Bacil lu. ID and sensi tivit y in progr ess. See Diablo te Resul t(s) Below Esche sen a coli Not Available [facility] [address] [place] [address], [address], 07/31/2024 15:31:54 07/30/19 25 07/31/2024 URINE CULTU RE amox/K clav'ate(C) <=8/4 ug/mL susceptib le Not Available [facility] [address] [place] [address], [address], 07/31/2024 15:31:54 07/30/19 25 07/31/2024 URINE CULTU RE ampicillin <=8 ug/mL susceptib le Not Available [facility] [address] [place] [address], [address], 07/31/2024 15:31:54 07/30/19 25 07/31/2024 URINE CULTU RE cefazolin <=2 ug/mL susceptib le Not Available [facility] [address] [place], [address], 07/31/2024 15:31:54 07/30/19 25 07/31/2024 URINE CULTU RE ceftazidime <=1 ug/mL susceptib le Not Available [facility] [address] [place] [address], [address], 07/31/2024 15:31:54 07/30/19 25 07/31/2024 URINE CULTU RE ceftriaxone <=1 ug/mL susceptib le Not Available [facility] [address] [place] [address], [address], 07/31/2024 15:31:54 07/30/19 25 07/31/2024 URINE CULTU RE cefuroxime <=4 ug/mL susceptib le Not Available [facility] [address] [place] [address], [address], 07/31/2024 15:31:54 07/30/19 25 07/31/2024 URINE CULTU RE ciprofloxaci n <=0.25 ug/mL susceptib le Not Available [facility] [address] [place] [address], [address], 07/31/2024 15:31:54 07/30/19 25 07/31/2024 URINE CULTU RE gentamicin <=4 ug/mL susceptib le Not Available [facility] [address] [place] [address], [address], 07/31/2024 15:31:54 07/30/19 25 07/31/2024 URINE CULTU RE imipenem <=1 ug/mL susceptib le Not Available [facility] [address] [place] [address], [address], 07/31/2024 15:31:54 07/30/19 25 07/31/2024 URINE CULTU RE levofloxacin <=0.5 ug/mL susceptib le Not Available [facility] [address] [place] [address], [address], 07/31/2024 15:31:54 07/30/19 25 07/31/2024 URINE CULTU RE nitrofuranto in <=32 ug/mL susceptib le Not Available [facility] [address] [place] [address], [address], 07/31/2024 15:31:54 07/30/19 25 07/31/2024 URINE CULTU RE piperacillin /alex <=16 ug/mL susceptib le Not Available [facility] [address] [place] [address], [address], 07/31/2024 15:31:54 07/30/19 25 07/31/2024 URINE CULTU RE tetracycline <=4 ug/mL susceptib le Not Available [facility] [address] [place] [address], [address], 07/31/2024 15:31:54 07/30/19 25 07/31/2024 URINE CULTU RE tobramycin <=2 ug/mL susceptib le Not Available [facility] [address] [place] [address], [address], 07/31/2024 15:31:54 07/30/19 25 07/31/2024 URINE CULTU RE trimeth/sulf a <=2/38 ug/mL susceptib le Not Available [facility] [address] [place] [address], [address], 07/31/2024 15:31:54 07/30/19 25 07/29/2024 urina lysis panel , auto Unknown Analyte Clean Catch Not Available [facility] [place] [facility] With [address], [place], [address], 07/29/2024 14:13:56 07/30/19 25 07/29/2024 urina lysis panel , auto Unknown Analyte Yellow Not Available [facility] With [address], [place], [address], 07/29/2024 14:13:56 07/30/19 25 07/29/2024 urina lysis panel , auto Unknown Analyte Clear Not Available [facility] [address], [place], [address], 07/29/2024 14:13:56 07/30/19 25 07/29/2024 urina lysis panel , auto Unknown Analyte 1.015 Not Available [facility] [address] [place], [address], 07/29/2024 14:13:56 07/30/19 25 07/29/2024 urina lysis panel , auto Unknown Analyte 1.003 - 1.030 Not Available [facility] With [address] [place], [address], 07/29/2024 14:13:56 07/30/19 25 07/29/2024 urina lysis panel , auto Unknown Analyte 5.0 Not Available [facility] With [address] [place], [address], 07/29/2024 14:13:56 07/30/19 25 07/29/2024 urina lysis panel , auto Unknown Analyte 5.0 - 8.0 Not Available [facility] [address] [place], [address], 07/29/2024 14:13:56 07/30/19 25 07/29/2024 urina lysis panel , auto Unknown Analyte 500 Ade/uL Not Available [facility] [address] [place], [address], 07/29/2024 14:13:56 07/30/19 25 07/29/2024 urina lysis panel , auto Unknown Analyte Negati ve Not Available [facility] [address] [place], [address], 07/29/2024 14:13:56 07/30/19 25 07/29/2024 urina lysis panel , auto Unknown Analyte POSITI VE (Abnor mal) Not Available [facility] [address] [place], [address], 07/29/2024 14:13:56 07/30/19 25 07/29/2024 urina lysis panel , auto Unknown Analyte Negati ve Not Available [facility] [address], [place], [address], 07/29/2024 14:13:56 07/30/19 25 07/29/2024 urina lysis panel , auto Unknown Analyte Trace Not Available [facility] With [address], [place], [address], 07/29/2024 14:13:56 07/30/19 25 07/29/2024 urina lysis panel , auto Unknown Analyte Negati ve Not Available [facility] [address] [place], [address], 07/29/2024 14:13:56 07/30/19 25 07/29/2024 urina lysis panel , auto Unknown Analyte Normal Not Available [facility] With [address], [place], [address], 07/29/2024 14:13:56 07/30/19 25 07/29/2024 urina lysis panel , auto Unknown Analyte Normal Not Available [facility] With [address], [place], [address], 07/29/2024 14:13:56 07/30/19 25 07/29/2024 urina lysis panel , auto Unknown Analyte Negati ve Not Available [facility] With [address] [place], [address], 07/29/2024 14:13:56 07/30/19 25 07/29/2024 urina lysis panel , auto Unknown Analyte Negati ve Not Available [facility] With [address] [place], [address], 07/29/2024 14:13:56 07/30/19 25 07/29/2024 urina lysis panel , auto Unknown Analyte 1 mg/dL Not Available [facility] With [address] [place], [address], 07/29/2024 14:13:56 07/30/19 25 07/29/2024 urina lysis panel , auto Unknown Analyte Normal Not Available [facility] With [address] [place], [address], 07/29/2024 14:13:56 07/30/19 25 07/29/2024 urina lysis panel , auto Unknown Analyte Negati ve Not Available [facility] With [address] [place], [address], 07/29/2024 14:13:56 07/30/19 25 07/29/2024 urina lysis panel , auto Unknown Analyte Negati ve Not Available [facility] With [address] [place], [address], 07/29/2024 14:13:56 07/30/19 25 07/29/2024 urina lysis panel , auto Unknown Analyte Negati ve Not Available [facility] With [address] [place], [address], 07/29/2024 14:13:56 07/30/19 25 07/29/2024 urina lysis panel , auto Unknown Analyte Negati ve Not Available [facility] [address] [place], [address], 07/29/2024 14:13:56 Result Notes None recorded. Problems Name Problem SNOMED Code Status Onset Date Resolution Date Notes Provider Name and Address Organization Details Recorded Time Nocturia 128371659 Active 2014 From Automated Load;Prov ider: Lobo, Stacy;St atus: Active Not Available [facility] 6 08:27:56 Lower urinary tract symptoms due to benign prostatic hypertrop hy 66392149033 101 Active 2014 From Automated Load;Prov ider: Lobo, Stacy;St atus: Active Not Available [facility] 6 08:27:56 Increased frequency of urination 213539153 Active 2014 From Automated Load;Prov ider: Lobo, Stacy;St atus: Active Not Available [facility] 6 08:27:56 Urge incontine nce of urine 88644849 Active 2015 From Automated Load;Prov ider: Lobo, Stacy;St atus: Active Not Available [facility] 6 08:27:56 Urgent desire to urinate 24757941 Active 2015 From Automated Load;Prov ider: Lobo, Stacy;St atus: Active Not Available [facility] 6 08:27:56 Multiple sclerosis 62538850 Active 2015 From Automated Load;Prov ider: Lobo, Stacy;St atus: Active Not Available [facility] 6 08:27:56 Weakness of left arm 55191056734 566295 Active 2019 Mary Lynn [facility] 0 10:22:02 Edema 438250623 Active 2019 Mary Lynn [facility] 0 07:35:39 Weakness of left leg 81507903905 126924 Active 2019 Mary Lynn [facility] 0 07:35:40 Problem Notes None recorded. Procedures Surgical History Date Name Laterality Status Provider Name and Address Organization Details Recorded Time 07/30/19 25 Lupron Administration completed Trish Rushing [facility] 07/29/2024 14:47:24 12/04/19 24 Lupron Administration completed Abrahan Almaguer [facility] 12/04/2023 18:14:34 05/29/19 24 [facility] 05/29/2023 13:00:54 11/29/19 23 [facility] 12:56:58 05/31/19 23 [facility] 05/30/2022 14:30:56 05/23/19 22 [facility] 06/14/2021 15:48:50 03/24/19 14 Knee Surgery completed Beulah [facility] 07/28/2018 13:37:26 03/24/18 56 Appendectomy completed Beulah [facility] 07/28/2018 13:37:18 Imaging Results None recorded. [...] Available Not Available No t Available moxifloxa ann-mraie 0.5 % eye drops 07/28 completed Not [...] Updated DateTime 07/29/2024 175.26 cm 36.9 kg/m2 041858.09 g Trish Kristan [facility] 07/29/2024 14:13:34 Date Recorded Body height Provider Name an d Address Organization Details Last Updated DateTime 08/26/2023 175.26 cm Janeth Estefany [facility] 0 08/26/2023 08:18:10 Date Recorded Body height Body mass index (BMI) Body weight Provider Name and Address Organization Details Last Updated DateTime 10/16/2023 175.26 cm 36.9 kg/m2 900676.09 keesha Almaguer [facility] 10/16/2023 15:07:11 Date Recorded Body height Body mass index (BMI) Body weight Provider Name and Address Organization Details Last Updated DateTime 12/04/2023 175.26 cm 36.9 kg/m2 535327.09 g Abrahan Almaguer [facility] 12/04/2023 13:20:26 Date Recorded Body height Provider Name an d Address Organization Details Last Updated DateTime 02/24/2024 175.26 cm Janeth Allison [facility] 1 04/26/2023 08:14:12 Social History Question Answer Notes LastModified by Organizat ion Details LastModified Time Tobacco Smoking Status Current Some Day [facility] 13:36:22 How Much Tobacco Do You Chew? None Information not available 07/28/2018 Which Illicit Or Recreational Drugs Have You Used? None Information not available 03/12/2019 Live Alone Or With Others? With Others Information not available 07/28/2018 Marital Status Informatio n not available 07/28/2018 What Was The Date Of Your Most Recent Tobacco Screening? 07/29/2024 [email or web address] Information not available 07/29/2024 What Is Your [...] Multiple Sclerosis Y Proteinuria N Heart Attack ([place]) N Mental Illness N Neurological Problems Y Diabetes Y Ovarian Cancer N Seizures/Epilepsy N Genitourinary problem(s) N Congestive Heart Failure (CHF) N Kidney Failure N Sleep Apnea N Bronchitis N Heart Disease N Hypertension Y Immunizations Vaccine Type Date Status Note Provider Nam e and Address Organization Details Recorded Time Influenza, split virus, quadrivalent, preservative 8 completed Murcielo Almaguer [facility] 05/01/2023 15:41:04 pneumococcal, unspecified formulation 7 completed Murelene Tripp null, [facility] 05/01/2023 15:41:04 Hep A, unspecified formulation 8 completed Murelene Tripp null, [facility] 12/04/2023 13:20:33 Influenza, split virus, quadrivalent, preservative 9 completed Murelene Tripp null, [facility] 05/01/2023 15:41:04 Influenza, split virus, quadrivalent, preservative 0 completed Murelene Tripp null, [facility] 05/01/2023 15:41:04 SARS-COV-2 (COVID-19) vaccine, UNSPECIFIED 1 completed Murelene Tripp null, [facility] 12/04/2023 13:20:33 SARS-COV-2 (COVID-19) vaccine, UNSPECIFIED 1 completed Murelene Tripp [facility], [facility] 12/04/2023 13:20:33 Past Encounters Encounter ID Performer Location Encounter Start Date Encounter Closed Date Diagnosis/Indication Diagnosis SNOMED-CT Code Diagnosis ICD10 Code Diagnosis Note [id number] FRANNY DAVILA MD [facility] [address] [place] [address] 07/28/2018 13:20:05 07/28/2018 16:17:39 Multiple sclerosis 28328218 G35 Infection screening 2437 89255 Z11.59 [id number] FRANNY DAVILA MD [facility] [address] [place] [address] 09/17/2018 08:37:06 09/17/2018 09:28:57 Multiple sclerosis 06700958 G35 [id number] FRANNY DAVILA MD [facility] [address] [place] [address] 12/07/2018 10:23:49 12/07/2018 11:43:47 Multiple sclerosis 09825363 G35 Primary pr ogressive multiple sclerosis 914985371 G35 Abnormal g ait due to muscle weakness 318293848 M62.81 Needs walk ing aid in home 262294391 Z74.09 Neurogenic dysfunction of urinary bladder 258305330 N31.9 Long-term drug therapy 619434927 Z79.899 Weakness of left arm 068 7716926 5281012 G83.24 [id number] FRANNY DAVILA MD NEUROLOGY CLOSED [address] [place] [address] 1 03/12/2019 10:34:22 03/12/2019 12:31:08 Multiple sclerosis 39413533 G35 [id number] FRANNY DAVILA MD NEUROLOGY CLOSED [address] [place] [address] 1 10/05/2019 10:11:43 10/05/2019 11:33:44 Multiple sclerosis 96218876 G35 Weakness of left arm 574 8565976 6680348 G83.24 Weakness of left leg 825 0789235 3160083 G83.10 Edema 754339128 R60.9 Primary pr ogressive multiple sclerosis 399034485 G35 Long-term drug therapy 387568000 Z79.812 [id number] FRANNY DAVILA MD NEUROLOGY CLOSED [address] [place] [address] 1 03/30/2020 08:02:28 03/30/2020 08:52:00 Multiple sclerosis 35348584 G35 Primary pr ogressive multiple sclerosis 221510214 G35 Long-term current use of drug therapy 962479721 Z79.899 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 Abnormal g ait due to muscle weakness 364988104 M62.81 [id number] FRANNY DAVILA MD NEUROLOGY CLOSED [address] [place] [address] 1 10/02/2020 07:59:39 10/02/2020 11:08:30 Primary progressive multiple sclerosis 374088254 G35 Long-term current use of drug therapy 436313588 Z79.899 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 Abnormal g ait due to muscle weakness 199103526 M62.81 Paresthesi a of upper limb 75969427 R20.2 Paresthesi a of lower extremity 275593252 R20.2 [id number] FRANNY DAVILA MD NEUROLOGY CLOSED [address] [place] [address] 1 03/05/2021 08:26:17 03/05/2021 09:19:51 Primary progressive multiple sclerosis 596941726 G35 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 Abnormal g ait due to muscle weakness 475208870 M62.81 Nocturia 983914056 R35.1 [id number] STACY DIAMOND MD [facility] [address],[place] [address] 05/24/2021 12:34:51 05/24/2021 20:50:59 Benign prostatic hyperplasia with outflow obstruction 691632509 N40.1 Increased frequency of urination 954770852 R35.0 Nocturia 839908141 R35.1 [id number] STACY DIAMOND MD [facility] [address],[place] [address] 8 06/14/2021 13:34:12 06/20/2021 17:49:03 Postoperative care 087696967 Z48.89 Malignant neoplasm of prostate 424491601 C61 [id number] STACY DIAMOND MD [facility] [address],[place] [address] 8 08/02/2021 12:37:32 08/08/2021 07:49:44 Urge incontinence of urine 34058842 N39.41 Urinary tr act infectious disease 00374238 N39.0 Benign pro static hyperplasia with outflow obstruction 223159419 N40.1 [id number] FRANNY DAVILA MD NEUROLOGY [facility] [address] [place] [address] 09/03/2021 08:05:11 09/03/2021 08:50:06 Primary progressive multiple sclerosis 754757737 G35 Abnormal g ait due to muscle weakness 657551146 M62.81 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 092051088 Z99.3 [id number] STACY DIAMOND MD [facility] [address] [place] [address] 10/04/2021 14:21:00 10/05/2021 14:25:46 Benign prostatic hyperplasia with outflow obstruction 059519255 N40.1 Urge incon tinence of urine 51403250 N39.41 [id number] STACY DIAMOND MD [facility] [address],[place] [place] [address] 8 01/31/2022 12:40:52 02/20/2022 13:17:44 Benign prostatic hyperplasia with outflow obstruction 925857986 N40.1 Urge incon tinence of urine 20331762 N39.41 Malignant neoplasm of prostate 471393020 C61 [id number] STACY DIAMOND MD SURGERY SCHEDULE [address] [place] [address] 1 02/21/2022 06:59:24 02/21/2022 06:59:47 [id number] FRANNY DAVILA MD NEUROLOGY SB CLOSED [address] [place] [address] 1 03/04/2022 07:53:47 03/05/2022 08:48:30 Multiple sclerosis 99670492 G35 Long-term current use of drug therapy 414901495 Z79.899 Abnormal g ait due to muscle weakness 163563700 M62.81 Unsteady w hen standing 918200201 R26.81 [id number] STACY DIAMOND MD [facility] EX[facility] SERVICES [address] [place] [address] [place] [id number] 8 03/21/2022 13:39:55 04/03/2022 11:08:21 Malignant neoplasm of prostate 613917094 C61 [id number] STACY DIAMOND MD [facility] EX[facility] [address] [place] [address] 8 05/30/2022 14:08:49 05/31/2022 09:49:17 Malignant neoplasm of prostate 889461094 C61 Prostate s pecific antigen above reference range 627751432 R97.20 [id number] FRANNY DAVILA MD NEUROLOGY SB CLOSED [address] [place] [address] 1 08/22/2022 07:54:52 08/23/2022 04:12:24 Multiple sclerosis 04909599 G35 Abnormal g ait due to muscle weakness 767438983 M62.81 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 Order provided [id number] STACY DIAMOND MD [facility] [place] [address] 11/28/2022 12:51:42 11/28/2022 15:53:06 Malignant neoplasm of prostate 191854074 C61 Nocturia 793279686 R35.1 [id number] FRANNY DAVILA MD NEUROLOGY CLOSED [address] [place], [place] [address] 02/24/2023 08:47:29 02/24/2023 09:44:47 Multiple sclerosis 31849596 G35 Disability 67712935 Z78. 9 Walking disability 49290 8008 R26.2 [id number] STACY DIAMOND MD [facility] [place] [address] [address] [place] [address] 8 05/01/2023 14:17:13 05/02/2023 15:10:44 Urinary tract infectious disease 05611196 N39.0 Malignant neoplasm of prostate 672758106 C61 [id number] STACY DIAMOND MD [facility] [place] [address] 8 05/29/2023 12:52:08 05/29/2023 15:53:22 Urinary tract infectious disease 72584844 N39.0 Malignant neoplasm of prostate 683651704 C61 [id number] FRANNY DAVILA MD NEUROLOGY CLOSED [address] [place] [address] 1 08/26/2023 08:17:18 08/27/2023 05:19:13 Long-term current use of drug therapy 676514613 Z79.899 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 86939 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.20 Abnormal g ait due to muscle weakness 873394757 M62.81 Neurogenic dysfunction of urinary bladder 019932397 N31.9 Multiple sclerosis 98734 007 G35 [id number] STACY DIAMOND MD [facility] [place] [address] 10/16/2023 14:44:01 10/17/2023 12:16:23 Urinary tract infectious disease 34722208 N39.0 Malignant neoplasm of prostate 784624406 C61 Tinea cruris 270847747 B 35.6 Urinary incontinence 165 497366 R32 [id number] STACY DIAMOND MD [facility] EX[facility] [address] ,[place] [address] 12/04/2023 13:00:03 12/04/2023 18:37:32 Urinary tract infectious disease 41289280 N39.0 see above Malignant neoplasm of prostate 400974956 C61 Lupron injection today Tinea cruris 698792527 B 35.6 Urinary incontinence 165 156412 R32 [id number] FRANNY DAVILA MD NEUROLOGY SB CLOSED [facility] [place] [address] 02/24/2024 08:13:44 02/26/2024 12:06:49 Multiple sclerosis 62551129 G35 Long-term current use of drug therapy 007498857 Z79.899 High risk medication monitoring indicated 5242064090 4069282 Z76.89 Disability 52324877 Z78. 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 - Advise on increased fluid intake. Urinary incontinence 165 236278 R32 - Continue silodosin. - Monitor fluid intake. Malignant neoplasm of prostate 704305903 C61 - Maintain Lupron therapy. - PSA remains undetectab le. Health Concerns Section Related Observation LastModified by Organization Detai ls LastModified Time None Recorded Concern Status LastModified by Organization Details LastModified Time None Recorded Advance Directives Directive None Recorded Payers Insurance Date Sequence Insurance Name Policy Number Policy Munoz Covered Member ID Munoz Member ID Guarantor Name 07/26/2024 1 [place] David Chung [id number] Med Chung 08/09/2024 2 AARP (MEDICARE SUPPLEMENT) Med Chung [id number] Med Chung Notes Date Note Type Note [...] is September 07, he gets Ocrevus at [facility]. FRANNY DAVILA MD [address] [place] [address], [phone], [facility] 08/27/2023 07:18:32 10/16/2023 text/html 78-year-old male in the office for evaluation of incontinence. He is currently taking alfuzosin. He has a rash in his genitourinary area. He is having a hard time keeping dry. He reports constant dribble. Daytime and night time frequency every 2 hours. PSAFebruary 2023-0.13August 2022-0.176June 2022- 0.24August 2021- 3.72 STACY DIAMOND MD [address] [place] [address], [phone], [facility] 11/02/2023 15:24:08 12/04/2023 text/html 78-year-old [...] 2022- 0.24August 2021- 3.72 STACY DIAMOND MD [address] [place] [address], [phone], [facility] 12/04/2023 19:37:14 02/24/2024 text/html Telehealth [...] CMP, IgG Reg Nick Nolasco MD in [place] is reg . FRANNY DAVILA MD [address] [place] [address], [phone], [facility] 02/24/2024 13:31:52 07/29/2024 text/html - The patient [...] and June 08, 2024). STACY DIAMOND MD [address] [place] [address], [phone], [facility] 08/08/2024 15:20:06
--- OUTSIDE RECORDS SUMMARY | 2024-09-22 10:19 | XMS_ITS | Encounter Summary ---
Author Organization [employer] ([place], [place], [place], [place]) Address [address] [place] [address] Care Team Providers Care Subsea Engineer Name Role Phone Marcelino Mobley MD Primary Care Provider [phone] Encounter Details Date Type Department Care Team (Late st Contact Info) Description 02/17/2019 Transcribed Document [facility] Family Medicine [facility] [place] [address] ProviderEphraim MD [address] [place] [address] Social History Tobacco Use Types Packs/Day Years Used Date Smoking Tobacco: Never Assessed Sex and Gender Information Value Date Recorded Sex Assigned at Not on file Legal Sex Male 4:11 PM CDT Gender Identity Not on file Sexual Orientation Not on file documented as of this encounter Miscellaneous Notes * Cerner Conversion Note - Ephraim ProviderMD - 02/17/2019 8:03 AM 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 Outpatient Visit History Entered On: 02/17/2019 8:05 [...] Source : Stated Height Entry Format : [place] Height, Feet : 5 ft(Converted to: 152 cm, 60 Inch) Height, Inches : 9 Inch(Converted to: 0 ft 9 Inch, 22.86 cm) Clinical Height : 175.26 cm Weight Source : Standing scale Weight Entry Format : [place] Clinical Dosing Weight : 113.64 kg Weight, Pounds : 250 lb Body Surface Area (BSA) : 2.27 m2 Body Mass Index : 37 kg/m2 (HI) [place] Body Weight : 70 kg EARL CISNEROS [...] : No, patient refuses Advance Directive information EARL CISNEROS RN - 02/17/2019 8:03 EST [place] Suicide Severity Rating Scale (C-SSRS) CSSRS Past [...] Level : 46 or > High Risk [place] Fall Interventions : Adequate lighting, Bed in low position, Call device within reach, Wheels locked EARL CISNEROS RN - 02/17/2019 8:03 EST Electronically signed by [facility], [facility] Conversion Pickle Solution Maker Cerner at 07/10/2022 9:46 PM CDT documented in this encounter Plan of Treatment Upcoming Encounters Date Type Department Care Team (Late st Contact Info) Description 10/11/2024 8:00 AM EDT Appointment [facility] [address] [place] [address] documented as of this encounter Visit Diagnoses Not on filedocumented in this encounter Care Teams Subsea Engineer Relationship Specialty Start Date End Date Marcelino Mobley MD [address] [place] [address] PCP - General Emergency Medicine 03/08/22 documented as of this encounter
[2024-09-22 10:20] LABS: Hematocrit 34.1 % (42.0-52.0); Hemoglobin 11.3 g/dL (14.1-18.0); Immature Granulocytes % 0.3 %; Mean Corpuscular HGB Conc 33.1 g/dL (31.8-35.4); Mean Corpuscular Hemoglobin 27.6 pg (27.0-31.2); Mean Corpuscular Volume 83.4 fl (80-94); Nucleated Red Blood Cells % 0 %; Platelet Count 332 K/mm3 (142-424); Red Blood Count 4.09 M/mm3 (4.60-6.20); Red Cell Distribution Width-SD 46.8 fL; White Blood Count 9.4 K/mm3 (4.8-10.8)
[2024-09-22 10:33] LABS: Alanine Aminotransferase 17 U/L (12-78); Albumin Level 3.0 g/dl (3.5-5.0); Albumin/Globulin Ratio 1.1 (1.1-1.8); Alkaline Phosphatase 130 U/L (38-126); Anion Gap 10.4 mEq/L (5-15); Aspartate Amino Transferase 20 U/L (17-59); Bilirubin,Total 1.4 mg/dl (0.2-1.3); Blood Urea Nitrogen 14 mg/dl (9-20); Calcium 9.1 mg/dl (8.4-10.2); Carbon Dioxide 25 mmol/L (22.0-30.0); Chloride 93 mmol/L (98-107); Creatinine Clearance Estimated 102 mL/min (50-200); Creatinine,Serum 0.90 mg/dl (0.66-1.25); Estimated Glomerular Filt Rate 82 ml/min (>60); GFR (African American) 99 ML/MIN (>60); Globulin 2.7 g/dL (1.3-3.2); Glucose 127 mg/dl (74-100); Potassium 4.4 mmoL/L (3.5-5.1); Sodium 124 mmol/L (136-145); Total Protein,Serum 5.7 g/dl (6.3-8.2)
[2024-09-22 10:38] LABS: C-Reactive Protein 43.4 mg/L (0-4)
[2024-09-22 10:45] LABS: NT Pro Brain Natriuretic Pep. 858 pg/mL (0-450)
[2024-09-22 10:49] LABS: Free T4 (Free Thyroxine) 1.91 ng/dl (0.78-2.19)
[2024-09-22] MEDS: RINGERS SOLUTION,LACTATED 500 ML 999 ML IV (10:59)
[2024-09-22 11:05] LABS: Creatine Kinase < 20 U/L (55-170)
[2024-09-22 11:06] LABS: Thyroid Stimulating Hormone 0.48 uIU/mL (0.465-4.68)
[2024-09-22 11:17] LABS: Microscopic, Urine URINE MICROSCOPIC (MICROSCOPIC)
--- NOTE | 2024-09-22 11:25 | PC.NURSE ---
obtained orthostatic BP. Pt is unable to stand. PA is aware.
[2024-09-22 11:26] LABS: Bilirubin,Urine Negative (Negative); Color,Urine YELLOW (Yellow); Glucose,Urine (UA) Negative (Negative); Ketones,Urine Negative (Negative); Leukocyte Esterase,Urine 3+ (Negative); PH,Urine 6.0 (5.0-8.5); Protein,Urine 1+ (Negative); Specific Gravity, Urine 1.025 (1.005-1.030); Urobilinogen,Urine 0.2 EU/dl (0.2)
[2024-09-22 11:48] LABS: Bacteria,Urine 3+ /lpf; Squamous Epithelial Cell,Urine Occasional #/hpf (0-5); WBC,Urine 20-50 #/hpf (0-3)
[2024-09-22] MEDS: AZITHROMYCIN 500 MG in 0.9 % SODIUM CHLORIDE 250 ML 250 MG IV (12:02)
--- NOTE | 2024-09-22 12:04 | PC.NURSE ---
[facility] call [facility]. no answer at this time
--- NOTE | 2024-09-22 12:07 | PC.NURSE ---
called [facility] and left voice mail for a call back referring to pt transfer
[2024-09-22 12:31] LABS: Coronavirus 19, PCR Not Detected (NotDetected); Influenza A, PCR Not Detected (NotDetected); Influenza B, PCR Not Detected (NotDetected)
--- NOTE | 2024-09-22 12:39 | PC.NURSE ---
JOSEPH called back and is speaking with ORTEGA Carty
--- NOTE | 2024-09-22 13:04 | PC.NURSE ---
Called EMS to let the know about the transfer
--- NOTE | 2024-09-22 13:53 | PC.NURSE ---
[facility]ed to the [facility] about getting [facility], they said that they are not sure how long it will take to get the patient a bed. They are going to call back in a couple of minutes after they talk to the warehouse pricing and inventory clerk.
--- NOTE | 2024-09-22 14:33 | PC.NURSE ---
EMS was called for the transfer to [place] now that we have a room for the patient
[2024-09-22 15:01] LABS: Reflex Lactic Add Lactic Reflex
--- NOTE | 2024-09-24 09:29 | PC.NURSE ---
Final urine culture results faxed to Amelia at [facility] to [phone]
== END 2024-09-22 14:55 | disposition other institution (70) ==
PROVIDERS: Nurse Practitioner; Emergency Provider Emergency Medicine; PCP Family Medicine
DX: J18.9 Pneumonia, unspecified organism (principal); E87.1 Hypo-osmolality and hyponatremia; R53.1 Weakness; Z87.891 Personal history of nicotine dependence
CPT/HCPCS: 71045; 80053; 81001; 82550; 83605; 83880; 84439; 84443; 85025; 85651; 86140; 87040; 87086; 87088; 87186; 87636; 96365; 99285; J0456; J0696; J7050; J7120

== ENCOUNTER 2024-12-02 10:07 | Emergency (ER) | payer OTHER, SELFPAY ==
--- OUTSIDE RECORDS SUMMARY | 2024-10-11 08:00 | XMS_ITS | Encounter Summary ---
Author Organization [employer] ([place], [place], [place], [place]) Address [address] [place] [address] Care Team Providers Care Senior Data Developer Name Role Phone Marcelino Mobley MD Primary Care Provider [phone] Reason for Visit * Episode Based Medication (Routine) - Authorized Specialty Diagnoses / Procedures Referred By Contmaggie t Referred To Contact Infusion Therapy Diagnoses Multiple sclerosis (HCC) Procedures AK INJECTION, OCRELIZUMAB, 1 MG [facility] INFUSION/INJECTION Marcelino Mobley MD [address] [place] [address] Phone: tel: fax: [facility] Outpatient Treatment [address] [place] [address] Phone: tel: fax: Referral ID Status Reason Start Date Expiration Date V isits Requested Visits Authorized [id number] Authorized 08/31/2024 03/23/2025 999 [id number] Encounter Details Date Type Department Care Team (Latest Contact Info) Description 10/11/2024 8:00 AM EDT - 10/11/2024 11:59 PM EDT Hospital Encounter [facility] Outpatient Treatment [address] [place] [address] Tiarra Pratt, DO [address] [place] [address] Multiple sclerosis, relapsing-remitting (HCC) (Primary Dx) Discharge Disposition: Home or Self Care Social History Tobacco Use Types Packs/Day Years Used Date Smoking Tobacco: Some Days Cigarettes Cigars Smokeless Tobacco: Never Alcohol Use Standard Drinks/Week Comments Never 0 (1 standard drink = 0.6 oz pur e alcohol) Family and Community Support Answer Krishan e Recorded Help with Day to Day Activities Not on file 04/04/2023 Feeling Lonely or Isolated Not on file 04/04 Educational Attainment Answer Date El rded Speak language other than Greek at home Not on file 04/04/2023 Want [...] on file documented as of this encounter Last Filed Vital Signs Vital Sign Reading Time Taken Comments Blood Pressure 138/63 10/11/2024 2:05 PM EDT Pulse 73 10/11/2024 2:05 PM EDT Temperature - - Respiratory Rate 17 10/11/2024 8:28 AM EDT Oxygen Saturation 91% 10/11/2024 8:28 AM EDT Inhaled Oxygen Concentration - - Weight 108.9 kg (240 lb) 10/11/2024 8:28 AM EDT Height 175.3 cm (5' 9 ) 10/11/2024 8:28 AM EDT Body Mass Index 35.44 10/11/2024 8:28 AM EDT documented in this encounter Medications at Time of Discharge alfuzosin (UROXATRAL) 10 mg 24 hr tablet alfuzosin ER 10 mg tablet,extended release 24 hr aspirin 81 MG EC tablet aspirin 81 mg tablet Daily atorvastatin (LIPITOR) 20 MG tablet atorvastatin 20 mg tablet bisoprolol (ZEBETA) 5 MG tablet bisoprolol fumarate 5 mg tablet cyanocobalamin, vitamin B-12, 500 MCG tablet cyanocobalamin (vit B-12) 500 mcg tablet Daily docusate sodium (COLACE) 250 MG capsule Take 250 mg by mouth. 06/09/2021 famotidine (PEPCID) 20 MG tablet Take 1 tablet (20 mg total) by mouth daily as needed for Heartburn. furosemide (LASIX) 40 MG tablet Take 40 mg by mouth. gabapentin (NEURONTIN) 100 MG capsule gabapentin 100 mg capsule HYDROcodone-acet aminophen (NORCO 7.5-325) 7.5-325 mg per tablet Take 1-2 tablets by mouth. 06/09/2021 Lactobacillus acidophilus (Probiotic) 10 billion cell Cap Probiotic leuprolide acetate (ELIGARD, 6 MONTH, SUBQ) Eligard (6 month) melatonin 3 mg tablet Take 1 tablet (3 mg total) by mouth nightly. metFORMIN (GLUCOPHAGE) 1000 MG tablet 500 mg, Oral, Daily, 0 Refill(s) 03/08/2021 methenamine hippurate (HIPREX) 1 gram tablet Take 1 tablet (1 g total) by mouth 2 (two) times daily with breakfast and dinner. mirabegron (Myrbetriq) 25 mg Tb24 ER tablet Take 25 mg by mouth. ocrelizumab (Ocrevus) 30 mg/mL injection Ocrevus 30 mg/mL intravenous solution Infuse 600 mg every 6 months for Multiple Sclerosis (G35), pre-med with 500 mL bolus normal saline, 50 mg of benadryl IV or PO, 1000 mg Tylenol, and 500 mg solu-medrol. omega-3s/dha/epa /fish oil/D3 (VITAMIN-D + OMEGA-3 ORAL) Vitamin D oxybutynin (DITROPAN-XL) 10 MG 24 hr tablet daily. polyethylene glycol (MIRALAX) 17 gram/dose powder Take 17 g by mouth daily. simvastatin (ZOCOR) 40 MG tablet Take 40 mg by mouth. solifenacin (VESIcare) 10 MG tablet Take 0.5 tablets (5 mg total) by mouth daily. tamsulosin (FLOMAX) 0.4 mg Cap 24 hr capsule Take 0.4 mg by mouth. trospium (SANCTURA) 20 mg tablet trospium 20 mg tablet vitamin A-vit C-vit E-zinc-Cu Tab Vision-B[facility]man Preserve tablet Take by oral route. vitamin E, dl,tocopheryl acet, (vitamin E, dl, acetate,) 45 mg (100 unit) Cap Take 1,000 Units by mouth. documented as of this encounter Miscellaneous Notes * Addendum Note - Rita Palmer RN - 10/11/2024 8:00 AM EDTEncounter addended by: Rita Palmer RN on: 10/11/2024 2:09 PM Actions taken: Flowsheet accepted, LDA properties accepted * Addendum Note - Rita Palmer RN - 10/11/2024 8:00 AM EDTEncounter addended by: Rita Palmer RN on: 10/11/2024 2:11 PM Actions taken: MAR administration accepted, Flowsheet accepted, LDA properties accepted, Clinical Note Signed documented in this encounter Plan of Treatment Upcoming Encounters Date Type Department Care Team (Late st Contact Info) Description 04/15/2025 9:00 AM EST Appointment [facility] Outpatient Treatment [address] [place] [address] documented as of this encounter Visit Diagnoses Diagnosis Multiple sclerosis, relapsing-remitting (HCC)- Primary Multiple sclerosis documented in this encounter Administered Medications Inactive Administered Medications - up to 3 most recent administrations Medication Order MAR Action Action Date Dose Rate Site acetaminophen (TYLENOL) 500 MG tablet Starting on Fri10/11/24 at 0834, For 1 dose, Created by nisha override acetaminophen (TYLENOL) tablet 1,000 mg 1,000 mg Once, oral, On Fri10/11/24 at 0900, For 1 dose, Recommended maximum dose of acetaminophen is 4000 mg from all sources in 24 hours. Premed 30-60 minutes before each dose.Indications:Multiple sclerosis, relapsing-remitting (HCC) Given 10/11/2024 8:43 AM EDT 1,000 mg diphenhydrAMINE (BENADRYL) 25 mg tablet Starting on Fri10/11/24 at 0834, For 1 dose, Created by nisha override diphenhydrAMINE (BENADRYL) tablet 50 mg 50 mg Once as needed, oral, itching, May use IV or PO, Starting on Fri10/11/24 at 0839, For 1 doseIndications:Multiple sclerosis, relapsing-remitting (HCC) Given 10/11/2024 8:45 AM EDT 50 mg methylPREDNISolone sodium succinate (Solu-MEDROL) 500 mg in sodium chloride 0.9 % (NS) 50 mL IVPB 500 mg Once, intravenous, at 100 mL/hr, On Fri10/11/24 at 0900, For 1 doseIndications:Multiple sclerosis, relapsing-remitting (HCC) IVPB Started 10/11/2024 9:16 AM EDT 500 mg 100 mL/hr ocrelizumab (OCREVUS) 30 mg/mL 600 mg in sodium chloride 0.9 % (NS) 500 mL IVPB 600 mg Once, intravenous, Administer over 3.5 Hours, On Fri10/11/24 at 0900, For 1 dose, Begin infusion at 40 mL/hour; increase by 40 mL/hour every 30 minutes to a maximum rate of 200 mL/hour. Infusion duration is 3.5 hours or longeIndications:Multiple sclerosis, relapsing-remitting (HCC) IVPB Started 10/11/2024 9:48 AM EDT 600 mg 142.9 mL/hr sodium chloride 0.9% (NS) bolus 500 mL Once, intravenous, Administer over 30 Minutes, On Fri10/11/24 at 0900, For 1 dose, Infuse per patient toleranceIndications:Multip le sclerosis, relapsing-remitting (HCC) New Bag 10/11/2024 8:43 AM EDT 500 mLs 1000 mL/hr documented in this encounter Care Teams Senior Data Developer Relationship Specialty Start Date End Date Marcelino Mobley MD [address] [place] [phone] PCP - General Emergency Medicine 03/08/22 documented as of this encounter
--- OUTSIDE RECORDS SUMMARY | 2024-12-01 20:00 | XMS_ITS | Clinical Summary ---
Author Organization Unknown Care Team Providers Care Tonger Name Role Phone MICHEAL BEARD, CORY Unavailable Unavailable LIZZETTE PT, ASHA Unavailable Unavailable GARETH STRETCHER LEVELER OPERATOR, CARLOS Unavailable Unavailabl e Payers Payer Name Policy Type Policy Number Effective Date Expira tion Date [email or web address] [facility] [id number] Problems Condition Name Condition Details Condition Category Status Onset Date Resolution Date Last Treatment Date Treating Clinician Comments MULTIPLE SCLEROSIS Active 09-28 00:00: 00 UNILATERAL PRIMARY OSTEOARTHRIT IS, RIGHT KNEE Active 09-14 00:00: 00 TYPE 2 DIABETES MELLITUS WITHOUT COMPLICATION S Active 03-24 00:00: 00 UNSPECIFIED MACULAR DEGENERATION Active 03-24 00:00: 00 ESSENTIAL (PRIMARY) HYPERTENSION Active 03-24 00:00: 00 HYPERLIPIDEM IA, UNSPECIFIED Active 03-24 00:00: 00 CONSTIPATION , UNSPECIFIED Active 03-24 00:00: 00 GASTRO-ESOPH AGEAL REFLUX DISEASE WITHOUT ESOPHAGITIS Active 03-24 00:00: 00 MIXED INCONTINENCE Active 03-24 00:00: 00 MALIGNANT NEOPLASM OF PROSTATE Active 03-24 00:00: 00 CORRECTION (CURRENT) USE OF ORAL HYPOGLYCEMIC DRUGS Active 03-24 00:00: 00 HISTORY OF FALLING Active 09-14 00:00: 00 PERSONAL HISTORY OF (HEALED) TRAUMATIC FRACTURE Active 09-14 00:00: 00 PRESSURE ULCER OF [place] REGION, STAGE 2 Active 05 00:00: 00 Allergies, Adverse Reactions, Alerts Allergy Name Allergy Type Status Severity Reaction(s) Onset Date Inactive Date Treating Clinician Comments NO KNOWN ALLERGIES Propensity to adverse reactions Active 10-04 11:40: 59 Medications Ordered Medication Name Filled Medication Name Start Date Stop Date Current Medication? Ordering Clinician Indication Dosage Frequency Signature (SIG) Comments Components Aspirin Childrens 81 mg chewable tablet 2- 00:00: 00 Yes [id number] ANTICOAGULA NT TOXICITY 1 tablet DAILY 1 tablet DAILY (route: oral) Med Classific ation: Hematolog ical Agents atorvastati n 20 mg tablet 2- 00:00: 00 Yes [id number] CHOLESTEROL 1 tablet BEDTIME 1 tablet BEDTIME (route: oral) Med Classific ation: Cardiovas cular Therapy Agents bisoprolol fumarate 5 mg tablet - 00:00: 00 Yes [id number] BLOOD PRESSURE 1 tablet DAILY 1 tablet DAILY (route: oral) Med Classific ation: Cardiovas cular Therapy Agents cholecalcif tanesha (vitamin D3) 50 mcg (2,000 unit) chewable tablet - 00:00: 00 Yes [id number] SUPPLEMENT 1 tablet 2 TIMES DAILY 1 tablet 2 TIMES DAILY (route: oral) Med Classific ation: Electroly te Balance-N utritiona l Products cyanocobala min (vit B-12) 1,000 mcg tablet - 00:00: 00 Yes [id number] SUPPLEMENT 1 tablet DAILY 1 tablet DAILY (route: oral) Med Classific ation: Electroly te Balance-N utritiona l Products famotidine 20 mg tablet - 00:00: 00 Yes [id number] STOMACH 1 tablet 2 TIMES DAILY 1 tablet 2 TIMES DAILY (route: oral) Med Classific ation: Gastroint estinal Therapy Agents Fiber (psyllium husk) 0.52 gram capsule 2- 00:00: 00 Yes [id number] BOWELS 1 capsule DAILY 1 capsule DAILY (route: oral) Med Classific ation: Gastroint estinal Therapy Agents gabapentin 100 mg capsule 2- 00:00: 00 Yes [id number] NERVE PAIN 1 capsule 4 TIMES DAILY 1 capsule 4 TIMES DAILY (route: oral) Med Classific ation: Central Nervous System Agents metformin 500 mg tablet 2- 00:00: 00 Yes [id number] DM 1 tablet DAILY 1 tablet DAILY (route: oral) Med Classific ation: Endocrine methenamine hippurate 1 gram tablet 2- 00:00: 00 Yes [id number] UTI 1 tablet 2 TIMES DAILY 1 tablet 2 TIMES DAILY (route: oral) Med Classific ation: Genitouri nary Therapy polyethylen e glycol 3350 17 gram/dose oral powder 2- 00:00: 00 Yes [id number] BOWELS 17 gram DAILY 17 gram DAILY (route: oral) Med Classific ation: Gastroint estinal Therapy Agents PreserVisio n AREDS 4,296 mcg-226 mg-90 mg capsule - 00:00: 00 Yes [id number] SUPPLEMENT 2 capsule DAILY 2 capsule DAILY (route: oral) Med Classific ation: Electroly te Balance-N utritiona l Products silodosin 8 mg capsule 04-24 00:00: 00 Yes [id number] BPH 1 capsule DAILY 1 capsule DAILY (route: oral) Med Classific ation: Genitouri nary Therapy cefuroxime axetil 500 mg tablet - 00:00: 00 08-13 23:59 :00 No [id number] UTI 1 tablet 2 TIMES DAILY 1 tablet 2 TIMES DAILY (route: oral) Med Classific ation: Anti-Infe ctive Agents acetaminoph en 325 mg tablet 09-21 00:00: 00 Yes [id number] PAIN 1 tablet 3 TIMES DAILY 1 tablet 3 TIMES DAILY (route: oral) Med Classific ation: Analgesic , Anti-infl ammatory or Antipyret ic Ocrevus 30 mg/mL intravenous solution 10-11 00:00: 00 Yes [id number] MS INFUSION 10 mL DIRECTED 10 mL DIRECTED (route: intravenou s) Med Classific ation: Multiple Sclerosis Agents Vital Signs Vital Name Observation Time Observation Value Commen ts Temperature 2024-11-29 10:34:00.000 97.9 [degF] Temperature 2024-11-26 18:36:00.000 98.6 [degF] Temperature 2024-11-25 11:57:00.000 97.6 [degF] Temperature 2024-11-15 10:53:00.000 97.4 [degF] Temperature 2024-11-08 11:01:00.000 97.5 [degF] Temperature 2024-11-01 15:04:00.000 97.3 [degF] Temperature 2024-10-25 10:19:00.000 97.5 [degF] Temperature 2024-10-20 13:03:00.000 97.5 [degF] Temperature 2024-10-18 10:01:00.000 97.4 [degF] Temperature 2024-10-15 11:11:00.000 97.6 [degF] Temperature 2024-10-13 11:02:00.000 97.6 [degF] Temperature 2024-10-08 10:16:00.000 98.1 [degF] Temperature 2024-10-04 12:09:00.000 97.8 [degF] BMI (%) 2024-10-04 12:09:00.000 36 kg/m2 Height 2024-10-04 12:09:00.000 69 [in_us] Pulse 2024-11-29 10:34:00.000 68 /min Pulse 2024-11-26 18:36:00.000 80 /min Pulse 2024-11-25 11:57:00.000 71 /min Pulse 2024-11-15 10:53:00.000 71 /min Pulse 2024-11-08 11:01:00.000 75 /min Pulse 2024-11-01 15:04:00.000 78 /min Pulse 2024-10-25 10:19:00.000 72 /min Pulse 2024-10-20 13:03:00.000 72 /min Pulse 2024-10-18 10:01:00.000 73 /min Pulse 2024-10-15 11:11:00.000 70 /min Pulse 2024-10-13 11:02:00.000 77 /min Pulse 2024-10-08 10:16:00.000 76 /min Pulse 2024-10-04 12:09:00.000 68 /min O2 Saturation (%) 2024-11-29 10:34:00.000 96 % O2 Saturation (%) 2024-11-26 18:36:00.000 95 % O2 Saturation (%) 2024-11-25 11:57:00.000 96 % O2 Saturation (%) 2024-11-15 10:53:00.000 98 % O2 Saturation (%) 2024-11-08 11:01:00.000 96 % O2 Saturation (%) 2024-11-01 15:04:00.000 98 % O2 Saturation (%) 2024-10-25 10:19:00.000 95 % O2 Saturation (%) 2024-10-20 13:03:00.000 96 % O2 Saturation (%) 2024-10-18 10:01:00.000 95 % O2 Saturation (%) 2024-10-15 11:11:00.000 93 % O2 Saturation (%) 2024-10-13 11:02:00.000 92 % O2 Saturation (%) 2024-10-08 10:16:00.000 94 % O2 Saturation (%) 2024-10-04 12:09:00.000 95 % Respirations 2024-11-29 10:34:00.000 18 /min Respirations 2024-11-26 18:36:00.000 18 /min Respirations 2024-11-25 11:57:00.000 16 /min Respirations 2024-11-15 10:53:00.000 17 /min Respirations 2024-11-08 11:01:00.000 17 /min Respirations 2024-11-01 15:04:00.000 17 /min Respirations 2024-10-25 10:33:00.000 18 /min Respirations 2024-10-20 13:03:00.000 16 /min Respirations 2024-10-18 10:01:00.000 16 /min Respirations 2024-10-15 11:11:00.000 16 /min Respirations 2024-10-13 11:02:00.000 17 /min Respirations 2024-10-08 10:16:00.000 16 /min Respirations 2024-10-04 12:09:00.000 18 /min Weight (lbs) 2024-11-29 10:34:00.000 210 [lb_av] Weight (lbs) 2024-10-04 12:09:00.000 250 [lb_av] Systolic Blood Pressure 2024-11-29 10:34:00.000 118 mm [Hg] Systolic Blood Pressure 2024-11-26 18:36:00.000 128 mm [Hg] Systolic Blood Pressure 2024-11-25 11:57:00.000 110 mm [Hg] Systolic Blood Pressure 2024-11-15 10:53:00.000 112 mm [Hg] Systolic Blood Pressure 2024-11-08 11:01:00.000 116 mm [Hg] Systolic Blood Pressure 2024-11-01 15:04:00.000 102 mm [Hg] Systolic Blood Pressure 2024-10-25 10:19:00.000 112 mm [Hg] Systolic Blood Pressure 2024-10-20 13:03:00.000 114 mm [Hg] Systolic Blood Pressure 2024-10-18 10:01:00.000 124 mm [Hg] Systolic Blood Pressure 2024-10-15 11:11:00.000 110 mm [Hg] Systolic Blood Pressure 2024-10-13 11:02:00.000 116 mm [Hg] Systolic Blood Pressure 2024-10-08 10:16:00.000 94 mm[ Hg] Systolic Blood Pressure 2024-10-04 12:09:00.000 132 mm [Hg] Diastolic Blood Pressure 2024-11-29 10:34:00.000 60 mm [Hg] Diastolic Blood Pressure 2024-11-26 18:36:00.000 80 mm [Hg] Diastolic Blood Pressure 2024-11-25 11:57:00.000 58 mm [Hg] Diastolic Blood Pressure 2024-11-15 10:53:00.000 58 mm [Hg] Diastolic Blood Pressure 2024-11-08 11:01:00.000 60 mm [Hg] Diastolic Blood Pressure 2024-11-01 15:04:00.000 60 mm [Hg] Diastolic Blood Pressure 2024-10-25 10:19:00.000 62 mm [Hg] Diastolic Blood Pressure 2024-10-20 13:03:00.000 56 mm [Hg] Diastolic Blood Pressure 2024-10-18 10:01:00.000 64 mm [Hg] Diastolic Blood Pressure 2024-10-15 11:11:00.000 68 mm [Hg] Diastolic Blood Pressure 2024-10-13 11:02:00.000 60 mm [Hg] Diastolic Blood Pressure 2024-10-08 10:16:00.000 50 mm [Hg] Diastolic Blood Pressure 2024-10-04 12:09:00.000 60 mm [Hg] Plan of Treatment Planned Activity Planned Date Details Comments Future Scheduled Test AGENCY MAY PERFORM A RESUMPTION OF CARE VISIT FOLLOWING ANY HOSPITAL ADMISSION. PT TO EVALUATE, OBSERVE / ASSESS, AND MONITOR, STRETCHER LEVELER OPERATOR TO OBSERVE AND MONITOR, PROVIDE SKILLED THERAPEUTIC INTERVENTION, ACTIVITY, EDUCATION, AND TRAINING TO ADDRESS; [code = AGENCY MAY PERFORM A RESUMPTION OF CARE VISIT FOLLOWING ANY HOSPITAL ADMISSION. PT TO EVALUATE, OBSERVE / ASSESS, AND MONITOR, STRETCHER LEVELER OPERATOR TO OBSERVE AND MONITOR, PROVIDE SKILLED THERAPEUTIC INTERVENTION, ACTIVITY, EDUCATION, AND TRAINING TO ADDRESS;] Future Scheduled Test BED TRANSF ERS (PT/STRETCHER LEVELER OPERATOR) [code = BED TRANSFERS (PT/STRETCHER LEVELER OPERATOR)] Future Scheduled Test CHAIR BARNETT SFERS (PT/STRETCHER LEVELER OPERATOR) [code = CHAIR TRANSFERS (PT/STRETCHER LEVELER OPERATOR)] Future Scheduled Test NEUROMUSCU LAR RE-EDUCATION / BALANCE / POSTURAL CONTROL (PT) [code = NEUROMUSCULAR RE-EDUCATION / BALANCE / POSTURAL CONTROL (PT)] Future Scheduled Test THERAPEUTI C EXERCISES AND ESTABLISHING A HOME EXERCISE PROGRAM (PT/STRETCHER LEVELER OPERATOR) [code = THERAPEUTIC EXERCISES AND ESTABLISHING A HOME EXERCISE PROGRAM (PT/STRETCHER LEVELER OPERATOR)] Future Scheduled Test PT/STRETCHER LEVELER OPERATOR TO IDENTIFY FALL RISK FACTORS; EDUCATE THE PATIENT/CAREGIVER ON WAYS TO REDUCE FALL RISK FACTORS AND ESTABLISH HOME EXERCISE PROGRAM TO MINIMIZE FALL RISK. MAY TEACH THE PATIENT FLOOR RECOVERY WHEN CLINICALLY APPROPRIATE [code = PT/STRETCHER LEVELER OPERATOR TO IDENTIFY FALL RISK FACTORS; EDUCATE THE PATIENT/CAREGIVER ON WAYS TO REDUCE FALL RISK FACTORS AND ESTABLISH HOME EXERCISE PROGRAM TO MINIMIZE FALL RISK. MAY TEACH THE PATIENT FLOOR RECOVERY WHEN CLINICALLY APPROPRIATE] Future Scheduled Test PT / STRETCHER LEVELER OPERATOR T O EDUCATE ON PNEUMONIA / ASPIRATION PNEUMONIA SELF-MANAGEMENT. [code = PT / STRETCHER LEVELER OPERATOR TO EDUCATE ON PNEUMONIA / ASPIRATION PNEUMONIA SELF-MANAGEMENT.] Future Scheduled Test PT TO ASSE SS / STRETCHER LEVELER OPERATOR TO MONITOR FOR HEART FAILURE EXACERBATION AND RECORD PATIENT REPORTED WEIGHT, AND NOTIFY THE PHYSICIAN AND/OR THE RN CLINICAL SCOOP FILLER FOR PHYSICIAN NOTIFICATION OF HF EXACERBATION (2LB WEIGHT GAIN IN 1 DAY, 5LBS IN A WEEK OR 5 LBS OVER BASELINE; INCREASED SOB, EDEMA, NEEDING MORE PILLOWS AT NIGHT, CRACKLES IN BASIS OF THE LUNGS OR PMI SHIFT) [code = PT TO ASSESS / STRETCHER LEVELER OPERATOR TO MONITOR FOR HEART FAILURE EXACERBATION AND RECORD PATIENT REPORTED WEIGHT, AND NOTIFY THE PHYSICIAN AND/OR THE RN CLINICAL SCOOP FILLER FOR PHYSICIAN NOTIFICATION OF HF EXACERBATION (2LB WEIGHT GAIN IN 1 DAY, 5LBS IN A WEEK OR 5 LBS OVER BASELINE; INCREASED SOB, EDEMA, NEEDING MORE PILLOWS AT NIGHT, CRACKLES IN BASIS OF THE LUNGS OR PMI SHIFT)] Future Scheduled Test PT TO ASSE SS / STRETCHER LEVELER OPERATOR TO MONITOR CARDIO/RESPIRATORY SYSTEM; AND NOTIFY THE PHYSICIAN AND/OR THE RN CLINICAL SCOOP FILLER FOR PHYSICIAN NOTIFICATION FOR EARLY SIGNS AND SYMPTOMS OF EXACERBATION OR DETERIORATION. [code = PT TO ASSESS / STRETCHER LEVELER OPERATOR TO MONITOR CARDIO/RESPIRATORY SYSTEM; AND NOTIFY THE PHYSICIAN AND/OR THE RN CLINICAL SCOOP FILLER FOR PHYSICIAN NOTIFICATION FOR EARLY SIGNS AND SYMPTOMS OF EXACERBATION OR DETERIORATION.] Future Scheduled Test PT TO ASSE SS / STRETCHER LEVELER OPERATOR TO MONITOR FOR AND REPORT EARLY SIGNS OF ANTICOAGULANT TOXICITY TO THE PHYSICIAN AND/OR THE RN CLINICAL SCOOP FILLER FOR PHYSICIAN NOTIFICATION AND TO PROVIDE PATIENT/CAREGIVER EDUCATION ON ANTICOAGULANT THERAPY [code = PT TO ASSESS / STRETCHER LEVELER OPERATOR TO MONITOR FOR AND REPORT EARLY SIGNS OF ANTICOAGULANT TOXICITY TO THE PHYSICIAN AND/OR THE RN CLINICAL SCOOP FILLER FOR PHYSICIAN NOTIFICATION AND TO PROVIDE PATIENT/CAREGIVER EDUCATION ON ANTICOAGULANT THERAPY] Future Scheduled Test PT / STRETCHER LEVELER OPERATOR T O MONITOR AND EDUCATE ON OXYGEN SATURATION DURING ADLS/IADLS, NOTIFY PHYSICIAN AND/OR THE RN CLINICAL SCOOP FILLER FOR PHYSICIAN NOTIFICATION AND IF O2 SATS BELOW PHYSICIAN ORDERED PARAMETERS AFTER 10 MIN OF REST [code = PT / STRETCHER LEVELER OPERATOR TO MONITOR AND EDUCATE ON OXYGEN SATURATION DURING ADLS/IADLS, NOTIFY PHYSICIAN AND/OR THE RN CLINICAL SCOOP FILLER FOR PHYSICIAN NOTIFICATION AND IF O2 SATS BELOW PHYSICIAN ORDERED PARAMETERS AFTER 10 MIN OF REST] Future Scheduled Test PT / STRETCHER LEVELER OPERATOR T O INSTRUCT PATIENT/CAREGIVER ON RISK FOR HOSPITALIZATION/EMERGENCY ROOM VISITS, TEACH SIGNS AND SYMPTOMS THAT PUT PATIENT AT RISK, WHEN TO NOTIFY NURSE/PHYSICIAN OF COMPLICATIONS/DECLINE, AND WHEN TO CALL 911. [code = PT / STRETCHER LEVELER OPERATOR TO INSTRUCT PATIENT/CAREGIVER ON RISK FOR HOSPITALIZATION/EMERGENCY ROOM VISITS, TEACH SIGNS AND SYMPTOMS THAT PUT PATIENT AT RISK, WHEN TO NOTIFY NURSE/PHYSICIAN OF COMPLICATIONS/DECLINE, AND WHEN TO CALL 911.] Goal 2024-11-29 Patient Goal - B E ABLE TO GET IN AND OUT OF BED BETTER Goal Patient Goal - B E ABLE TO GET IN AND OUT OF BED BETTER Goal Provider Goal - Goal Provider Goal - PT LTG: PATIENT WILL DEMONSTRATE IMPROVED ABILITY TO PERFORM BED TRANSFERS IN ORDER TO REDUCE RISK OF SKIN BREAKDOWN FROM MOD TO SBA WITHIN 8 WEEKS Goal Provider Goal - PT LTG: PATIENT WILL DEMONSTRATE IMPROVED ABILITY TO PERFORM CHAIR TRANSFERS TO REDUCE THE RISK OF SKIN BREAKDOWN AND FALL RISK MAX FROM CGA WITHIN 8 WEEKS Goal Provider Goal - PT STG: PATIENT WILL BE ABLE TO SIT EDGE OF BED WITHOUT SUPPORT AND NO ASSISTANCE FOR 2 MINS Goal Provider Goal - PT LTG: PATIENT WILL DEMONSTRATE INCREASED STRENGTH OF BILAT HIPS FROM 3- TO 4 WITHIN 8 WEEKS IN ORDER TO TRANSFER BETTER Goal Provider Goal - PT LTG: PATIENT/CAREGIVER WILL DEMONSTRATE ADHERENCE TO FALL REDUCTION SELF-MANAGEMENT AND REDUCING FALL RISK FACTORS TO MINIMIZE FALL RISK BY END OF EPISODE. Goal Provider Goal - PT GOAL: PATIENT / CAREGIVER WILL DEMONSTRATE ADHERENCE TO PNEUMONIA SELF-MANAGEMENT BY END OF EPISODE. Goal Provider Goal - PT GOAL: PATIENT S HEART FAILURE WILL REMAIN WELL CONTROLLED THROUGHOUT EPISODE OF CARE. Goal Provider Goal - PT LTG: PATIENT WILL NOT EXPERIENCE CARDIAC OR RESPIRATORY COMPLICATIONS THROUGHOUT THE EPISODE OF CARE. Goal Provider Goal - PT LTG: PATIENT WILL NOT EXHIBIT SIGNS AND SYMPTOMS OF ANTICOAGULANT TOXICITY THROUGHOUT EPISODE OF CARE. Goal Provider Goal - PT LTG: PATIENT WILL MAINTAIN OXYGEN SATURATION WITHIN PHYSICIAN ORDERED PARAMETERS THROUGHOUT EPISODE OF CARE. Goal Provider Goal - PT GOAL: PATIENT/CAREGIVER WILL VERBALIZE UNDERSTANDING OF SIGNS AND SYMPTOMS THAT PUT THE PATIENT AT RISK FOR HOSPITALIZATION /EMERGENCY ROOM VISITS, WHEN TO NOTIFY NURSE/PHYSICIAN OF COMPLICATIONS/DECLINE AND WHEN TO CALL 911. Encounters Start Date/Time End Date/Time Encounter Type Admission Type Attending Clinicians Care Facility Care Department Encounter ID Discharge Date Discharge Status Discharge Condition Discharge Reason Percent Goals Met 2024-10-04 00:00:00 2024-12-02 00:00:00 Outpatient ASHA [facility] [id number]
--- OUTSIDE RECORDS SUMMARY | 2024-12-01 20:00 | XMS_ITS | Clinical Summary ---
Author Organization Unknown Care Team Providers Care Orthopedic Mechanic Name Role Phone MICHEAL BEARD, CORY Unavailable Unavailable LIZZETTE PT, ASHA Unavailable Unavailable GARETH AUDIO PRODUCTION INSTRUCTOR, CARLOS Unavailable Unavailabl e Payers Payer Name Policy Type Policy Number Effective Date Expira tion Date [facility].OPTUM.VACCN.PDGM.[email or web address].A [facility] [id number] Problems Condition Name Condition Details Condition Category [...] NEOPLASM OF PROSTATE Active 03-24 00:00: 00 HALF-WAY (CURRENT) USE OF ORAL HYPOGLYCEMIC DRUGS Active [...] mg chewable tablet 2- 00:00: 00 Yes [id number] ANTICOAGULA NT TOXICITY 1 tablet DAILY 1 tablet DAILY (route: oral) Med Classific ation: Hematolog ical Agents atorvastati n 20 mg tablet 2- 00:00: 00 Yes [id number] CHOLESTEROL 1 tablet BEDTIME 1 tablet BEDTIME (route: oral) Med Classific ation: Cardiovas cular Therapy Agents bisoprolol fumarate 5 mg tablet - 00:00: 00 Yes [id number] BLOOD PRESSURE 1 tablet DAILY 1 tablet DAILY (route: oral) Med Classific ation: Cardiovas cular Therapy Agents cholecalcif tanesha (vitamin D3) 50 mcg (2,000 unit) chewable tablet - 00:00: 00 Yes [id number] SUPPLEMENT 1 tablet 2 TIMES DAILY 1 tablet 2 TIMES DAILY (route: oral) Med Classific ation: Electroly te Balance-N utritiona l Products cyanocobala min (vit B-12) 1,000 mcg tablet - 00:00: 00 Yes [id number] SUPPLEMENT 1 tablet DAILY 1 tablet DAILY (route: oral) Med Classific ation: Electroly te Balance-N utritiona l Products famotidine 20 mg tablet - 00:00: 00 Yes [id number] STOMACH 1 tablet 2 TIMES DAILY 1 tablet 2 TIMES DAILY (route: oral) Med Classific ation: Gastroint estinal Therapy Agents Fiber (psyllium husk) 0.52 gram capsule 2- 00:00: 00 Yes [id number] BOWELS 1 capsule DAILY 1 capsule DAILY (route: oral) Med Classific ation: Gastroint estinal Therapy Agents gabapentin 100 mg capsule 2- 00:00: 00 Yes [id number] NERVE PAIN 1 capsule 4 TIMES DAILY 1 capsule 4 TIMES DAILY (route: oral) Med Classific ation: Central Nervous System Agents metformin 500 mg tablet 2- 00:00: 00 Yes [id number] DM 1 tablet DAILY 1 tablet DAILY (route: oral) Med Classific ation: Endocrine methenamine hippurate 1 gram tablet 2- 00:00: 00 Yes [id number] UTI 1 tablet 2 TIMES DAILY 1 tablet 2 TIMES DAILY (route: oral) Med Classific ation: Genitouri nary Therapy polyethylen e glycol 3350 17 gram/dose oral powder 2- 00:00: 00 Yes [id number] BOWELS 17 gram DAILY 17 gram DAILY (route: oral) Med Classific ation: Gastroint estinal Therapy Agents PreserVisio n AREDS 4,296 mcg-226 mg-90 mg capsule - 00:00: 00 Yes [id number] SUPPLEMENT 2 capsule DAILY 2 capsule DAILY (route: oral) Med Classific ation: Electroly te Balance-N utritiona l Products silodosin 8 mg capsule 04-24 00:00: 00 Yes [id number] BPH 1 capsule DAILY 1 capsule DAILY (route: oral) Med Classific ation: Genitouri nary Therapy cefuroxime axetil 500 mg tablet - 00:00: 00 08-13 23:59 :00 No [id number] UTI 1 tablet 2 TIMES DAILY 1 tablet 2 TIMES DAILY (route: oral) Med Classific ation: Anti-Infe ctive Agents acetaminoph en 325 mg tablet 09-21 00:00: 00 Yes [id number] PAIN 1 tablet 3 TIMES DAILY 1 tablet 3 TIMES DAILY (route: oral) Med Classific ation: Analgesic , Anti-infl ammatory or Antipyret ic Ocrevus 30 mg/mL intravenous solution 10-11 00:00: 00 Yes [id number] MS INFUSION 10 mL DIRECTED 10 mL [...] TO EVALUATE, OBSERVE / ASSESS, AND MONITOR, AUDIO PRODUCTION INSTRUCTOR TO OBSERVE AND MONITOR, PROVIDE SKILLED THERAPEUTIC INTERVENTION, ACTIVITY, EDUCATION, AND TRAINING TO ADDRESS; [code = AGENCY MAY PERFORM A RESUMPTION OF CARE VISIT FOLLOWING ANY HOSPITAL ADMISSION. PT TO EVALUATE, OBSERVE / ASSESS, AND MONITOR, AUDIO PRODUCTION INSTRUCTOR TO OBSERVE AND MONITOR, PROVIDE SKILLED THERAPEUTIC INTERVENTION, ACTIVITY, EDUCATION, AND TRAINING TO ADDRESS;] Future Scheduled Test BED TRANSF ERS (PT/AUDIO PRODUCTION INSTRUCTOR) [code = BED TRANSFERS (PT/AUDIO PRODUCTION INSTRUCTOR)] Future Scheduled Test CHAIR BARNETT SFERS (PT/AUDIO PRODUCTION INSTRUCTOR) [code = CHAIR TRANSFERS (PT/AUDIO PRODUCTION INSTRUCTOR)] Future Scheduled Test NEUROMUSCU LAR RE-EDUCATION / BALANCE / POSTURAL CONTROL (PT) [code = NEUROMUSCULAR RE-EDUCATION / BALANCE / POSTURAL CONTROL (PT)] Future Scheduled Test THERAPEUTI C EXERCISES AND ESTABLISHING A HOME EXERCISE PROGRAM (PT/AUDIO PRODUCTION INSTRUCTOR) [code = THERAPEUTIC EXERCISES AND ESTABLISHING A HOME EXERCISE PROGRAM (PT/AUDIO PRODUCTION INSTRUCTOR)] Future Scheduled Test PT/AUDIO PRODUCTION INSTRUCTOR TO IDENTIFY FALL RISK FACTORS; EDUCATE THE PATIENT/CAREGIVER ON WAYS TO REDUCE FALL RISK FACTORS AND ESTABLISH HOME EXERCISE PROGRAM TO MINIMIZE FALL RISK. MAY TEACH THE PATIENT FLOOR RECOVERY WHEN CLINICALLY APPROPRIATE [code = PT/AUDIO PRODUCTION INSTRUCTOR TO IDENTIFY FALL RISK FACTORS; EDUCATE THE PATIENT/CAREGIVER ON WAYS TO REDUCE FALL RISK FACTORS AND ESTABLISH HOME EXERCISE PROGRAM TO MINIMIZE FALL RISK. MAY TEACH THE PATIENT FLOOR RECOVERY WHEN CLINICALLY APPROPRIATE] Future Scheduled Test PT / AUDIO PRODUCTION INSTRUCTOR T O EDUCATE ON PNEUMONIA / ASPIRATION PNEUMONIA SELF-MANAGEMENT. [code = PT / AUDIO PRODUCTION INSTRUCTOR TO EDUCATE ON PNEUMONIA / ASPIRATION PNEUMONIA SELF-MANAGEMENT.] Future Scheduled Test PT TO ASSE SS / AUDIO PRODUCTION INSTRUCTOR TO MONITOR FOR HEART FAILURE EXACERBATION AND RECORD PATIENT REPORTED WEIGHT, AND NOTIFY THE PHYSICIAN AND/OR THE RN CLINICAL ESE TEACHER FOR PHYSICIAN NOTIFICATION OF HF EXACERBATION (2LB WEIGHT GAIN IN 1 DAY, 5LBS IN A WEEK OR 5 LBS OVER BASELINE; INCREASED SOB, EDEMA, NEEDING MORE PILLOWS AT NIGHT, CRACKLES IN BASIS OF THE LUNGS OR PMI SHIFT) [code = PT TO ASSESS / AUDIO PRODUCTION INSTRUCTOR TO MONITOR FOR HEART FAILURE EXACERBATION AND RECORD PATIENT REPORTED WEIGHT, AND NOTIFY THE PHYSICIAN AND/OR THE RN CLINICAL ESE TEACHER FOR PHYSICIAN NOTIFICATION OF HF EXACERBATION (2LB WEIGHT GAIN IN 1 DAY, 5LBS IN A WEEK OR 5 LBS OVER BASELINE; INCREASED SOB, EDEMA, NEEDING MORE PILLOWS AT NIGHT, CRACKLES IN BASIS OF THE LUNGS OR PMI SHIFT)] Future Scheduled Test PT TO ASSE SS / AUDIO PRODUCTION INSTRUCTOR TO MONITOR CARDIO/RESPIRATORY SYSTEM; AND NOTIFY THE PHYSICIAN AND/OR THE RN CLINICAL ESE TEACHER FOR PHYSICIAN NOTIFICATION FOR EARLY SIGNS AND SYMPTOMS OF EXACERBATION OR DETERIORATION. [code = PT TO ASSESS / AUDIO PRODUCTION INSTRUCTOR TO MONITOR CARDIO/RESPIRATORY SYSTEM; AND NOTIFY THE PHYSICIAN AND/OR THE RN CLINICAL ESE TEACHER FOR PHYSICIAN NOTIFICATION FOR EARLY SIGNS AND SYMPTOMS OF EXACERBATION OR DETERIORATION.] Future Scheduled Test PT TO ASSE SS / AUDIO PRODUCTION INSTRUCTOR TO MONITOR FOR AND REPORT EARLY SIGNS OF ANTICOAGULANT TOXICITY TO THE PHYSICIAN AND/OR THE RN CLINICAL ESE TEACHER FOR PHYSICIAN NOTIFICATION AND TO PROVIDE PATIENT/CAREGIVER EDUCATION ON ANTICOAGULANT THERAPY [code = PT TO ASSESS / AUDIO PRODUCTION INSTRUCTOR TO MONITOR FOR AND REPORT EARLY SIGNS OF ANTICOAGULANT TOXICITY TO THE PHYSICIAN AND/OR THE RN CLINICAL ESE TEACHER FOR PHYSICIAN NOTIFICATION AND TO PROVIDE PATIENT/CAREGIVER EDUCATION ON ANTICOAGULANT THERAPY] Future Scheduled Test PT / AUDIO PRODUCTION INSTRUCTOR T O MONITOR AND EDUCATE ON OXYGEN SATURATION DURING ADLS/IADLS, NOTIFY PHYSICIAN AND/OR THE RN CLINICAL ESE TEACHER FOR PHYSICIAN NOTIFICATION AND IF O2 SATS BELOW PHYSICIAN ORDERED PARAMETERS AFTER 10 MIN OF REST [code = PT / AUDIO PRODUCTION INSTRUCTOR TO MONITOR AND EDUCATE ON OXYGEN SATURATION DURING ADLS/IADLS, NOTIFY PHYSICIAN AND/OR THE RN CLINICAL ESE TEACHER FOR PHYSICIAN NOTIFICATION AND IF O2 SATS BELOW PHYSICIAN ORDERED PARAMETERS AFTER 10 MIN OF REST] Future Scheduled Test PT / AUDIO PRODUCTION INSTRUCTOR T O INSTRUCT PATIENT/CAREGIVER ON RISK FOR HOSPITALIZATION/EMERGENCY ROOM VISITS, TEACH SIGNS AND SYMPTOMS THAT PUT PATIENT AT RISK, WHEN TO NOTIFY NURSE/PHYSICIAN OF COMPLICATIONS/DECLINE, AND WHEN TO CALL 911. [code = PT / AUDIO PRODUCTION INSTRUCTOR TO INSTRUCT PATIENT/CAREGIVER ON RISK FOR HOSPITALIZATION/EMERGENCY [...] 2024-10-04 00:00:00 2024-12-02 00:00:00 Outpatient ASHA HOPKINS [facility] [id number] 26.32
[2024-12-02] VITALS (14 sets, daily range): BP systolic 117–158; BP diastolic 43–79; PULSE 62–83; RESP 15–18; TEMP 36.6–37.1; O2SAT 96–100; BMI 31.0
--- NOTE | 2024-12-02 10:08 | ECG_ITS ---
APPROVED REPORT Exam: Resting ECG HR:64 bpm ECG Measurements Heart Rate 64 AXES QRSd 89 QRS 23 QT 434 T 14 QTc 444 Conclusion Atrial Fibrillation Abnormal Rhythm No STEMI Electronically signed by : MIKE GAMBLE, 12/03/2024 02:54:13
[2024-12-02 10:16] LABS: POC Glucose,Bedside 121 gm/dL (70-110)
--- OUTSIDE RECORDS SUMMARY | 2024-12-02 10:22 | XMS_ITS | Clinical Summary ---
Author Organization [employer] ([place], [place], [place], [place]) Address [address] [place] [address] Care Team Providers Care Nougat Candy Maker Helper Name Role Phone Marcelino Mobley MD Primary Care Provider [phone] Allergies No known active allergies Medications alfuzosin [...] mouth daily as needed for Heartburn. Active methenamine hippurate (HIPREX) 1 gram tablet Take 1 tablet (1 g total) by mouth 2 (two) times daily with breakfast and dinner. Active polyethylene glycol (MIRALAX) 17 gram/dose powder Take 17 g by mouth daily. Active melatonin 3 mg tablet Take 1 tablet (3 mg total) by mouth nightly. Active Active Problems Problem Noted Date Diagnosed Date Multiple sclerosis, relapsing-remitting 03/08/20 Encounters Date Type Department Care Team Description 10/11/2024 8:00 AM EDT - 10/11/2024 11:59 PM EDT Hospital Encounter [facility] Outpatient Treatment [address] [place] [address] Tiarra Pratt DO Multiple sclerosis, relapsing-remitting (HCC) (Primary Dx) Discharge Disposition: Home or Self Care from Last 3 Months Social History Tobacco [...] Date El rded Speak language other than Montserratian at home Not on file 04/04/2023 Want [...] Pulse 73 10/11/2024 2:05 PM EDT Temperature 36.7 C (98 F) 09/06/2022 7:26 AM EDT Respiratory Rate 17 10/11/2024 8:28 AM EDT Oxygen Saturation 91% 10/11/2024 8:28 AM EDT Inhaled Oxygen Concentration - - Weight 108.9 kg (240 lb) 10/11/2024 8:28 AM EDT Height 175.3 cm (5' 9 ) 10/11/2024 8:28 AM EDT Body Mass Index 35.44 10/11/2024 8:28 AM EDT Plan of Treatment Upcoming Encounters Date Type Department Care Team (Late st Contact Info) Description 04/15/2025 9:00 AM EST Appointment [facility] Outpatient Treatment [address] [place] [address] Health Maintenance Due Date Last Done Comments Medicare Initial AWV G0438 Depression Screening (12+) 1958 Tobacco Cessation Counseling and Screening (12+) 1958 Hepatitis C Screening 02/08/1964 DTAP/TDAP/TD VACCINES (1 - Tdap) 1965 Pneumococcal 50+ years (1 of 2 - PCV) 1965 Shingles Vaccine (Zoster) (2 of 2) 03/01/20192018 Respiratory Syncytial Virus (RSV) Adult or (1 - 1-dose 75+ series) 2021 Falls Risk Screening 03/24/2024 COVID-19 VACCINE (2024-2 6 season) 2024 01/30/2023, 03/12/2022, 10/04/2021, Additional history exists Influenza Vaccine (#1) 2024 , 01/25/2022, 01/10/2020, Additional history exists Insurance [facility] [place] [id number] MEDICARE PART A B HEALTH CLAIMS Care Teams Nougat Candy Maker Helper Relationship Specialty Start Date End Date Marcelino Mobley MD [address] [place] [address] PCP - General Emergency Medicine 03/08/22
--- OUTSIDE RECORDS SUMMARY | 2024-12-02 10:22 | XMS_ITS | Encounter Summary ---
Author Organization [employer] ([place], [place], [place], [place]) Address [address] [place] [address] Care Team Providers Care Narrow Gauge Brakeman Name Role Phone Marcelino Mobley MD Primary Care Provider [phone] Encounter Details Date Type Department Care Team (Late st Contact Info) Description 09/06/2019 Transcribed Document [facility] [place] [facility] [place] [address] ProviderEphraim MD [address] [place] [address] Social History Tobacco Use Types Packs/Day [...] On: 09/06/2019 13:44 EDT by GIOVANNI MITCHELL project engineer chemicals Documentation Discharge Date/Time : 09/06/2019 13:30 EDT [...] Info) Description 04/15/2025 9:00 AM EST Appointment [facility] Outpatient Treatment [address] [place] [address] documented as of this encounter Visit Diagnoses Not on filedocumented in this encounter Care Teams Narrow Gauge Brakeman Relationship Specialty Start Date End Date Marcelino Mobley MD [address] [facility] [address] [place] [address] PCP - General Emergency Medicine 03/08/22 documented as of this encounter
--- OUTSIDE RECORDS SUMMARY | 2024-12-02 10:22 | XMS_ITS | Encounter Summary ---
Author Organization [employer] ([place], [place], [place], [place]) Address [address] [place] [address] Care Team Providers Care Erp Specialist Name Role Phone Marcelino Mobley MD Primary Care Provider [phone] Encounter Details Date Type Department Care Team (Late st Contact Info) Description 09/06/2020 Transcribed Document [facility] [place] [facility] [place] [address] ProviderEphraim MD [address] [place] [address] Social History Tobacco Use Types Packs/Day [...] CHAUNCEY BARGER, RN - 09/06/2020 13:31 EDT Electronically signed by Vinod Faria Conversion Project Management It Specialist Cerner at 07/10/2022 10:09 PM CDT documented in this encounter Plan of Treatment Upcoming Encounters Date Type Department Care Team (Late st Contact Info) Description 04/15/2025 9:00 AM EST Appointment [facility] Outpatient Treatment [address] [place] [address] documented as of this encounter Visit Diagnoses Not on filedocumented in this encounter Care Teams Erp Specialist Relationship Specialty Start Date End Date Marcelino Mobley MD [address] [place] [address] PCP - General Emergency Medicine 03/08/22 documented as of this encounter
--- OUTSIDE RECORDS SUMMARY | 2024-12-02 10:22 | XMS_ITS | Encounter Summary ---
Author Organization [employer] ([place], [place], [place], [place]) Address [address] [place] [address] Care Team Providers Care Lsat Instructor Name Role Phone Marcelino Mobley MD Primary Care Provider [phone] Encounter Details Date Type Department Care Team (Late st Contact Info) Description 03/08/2021 Transcribed Document [facility] [place] [place] [facility] [place] [address] ProviderEphraim MD [address] [place] [address] Social History Tobacco Use Types Packs/Day Years Used Date Smoking Tobacco: Never Assessed Sex and Gender Information Value Date Recorded Sex Assigned at Not on file Legal Sex Male 4:11 PM CDT Gender Identity Not on file Sexual Orientation Not on file documented as of this encounter Miscellaneous Notes * Cerner Conversion Note - Ephraim ProviderMD - 03/08/2021 7:31 AM CENTRAL STERILIZATION TECHNICIAN Outpatient Visit History Entered On: 03/08/2021 7:33 [...] Source : Measured Height Entry Format : [place] Height, Feet : 5 ft(Converted to: 152 cm, 60 Inch) Height, Inches : 9 Inch(Converted to: 0 ft 9 Inch, 22.86 cm) Clinical Height : 175.26 cm Weight Source : Standing scale Weight Entry Format : [place] Clinical Dosing Weight : 115 kg Weight, Pounds : 253 lb Body Surface Area (BSA) : 2.28 m2 Body Mass Index : 37.4 kg/m2 (HI) [place] Body Weight : 70 kg BUCK HARTMANN [...] BUCK HARTMANN RN - 03/08/2021 7:31 EST [place] Suicide Severity Rating Scale (C-SSRS) CSSRS Past Month Wish to be : No CSSRS Past Month Suicidal Thoughts : No CSSRS Lifetime Suicide Behavior : No Suicide Severity Rating Score : 0 Suicide Severity Rating : No Additional Care Required at this time BUKC HARTMANN RN - 03/08/2021 7:31 EST Psychosocial [...] Level : 46 or > High Risk [place] Fall Interventions : Adequate lighting, Assistive devices [...] Info) Description 04/15/2025 9:00 AM EST Appointment [facility] Outpatient Treatment [address] [place] [address] documented as of this encounter Visit Diagnoses Not on filedocumented in this encounter Care Teams Lsat Instructor Relationship Specialty Start Date End Date Marcelino Mobley MD [address] [place] [address] PCP - General Emergency Medicine 03/08/22 documented as of this encounter
--- OUTSIDE RECORDS SUMMARY | 2024-12-02 10:22 | XMS_ITS | Encounter Summary ---
Author Organization [employer] ([place], [place], [place], [place]) Address [address] [place] [address] Care Team Providers Care Chief Lending Officer Name Role Phone Marcelino Mobley MD Primary Care Provider [phone] Encounter Details Date Type Department Care Team (Late st Contact Info) Description 02/17/2019 Transcribed Document [facility] [facility] [place] [address] ProviderEphraim MD [address] [place] [address] Social History Tobacco Use Types Packs/Day Years Used Date Smoking Tobacco: Never Assessed Sex and Gender Information Value Date Recorded Sex Assigned at Not on file Legal Sex Male 4:11 PM CDT Gender Identity Not on file Sexual Orientation Not on file documented as of this encounter Miscellaneous Notes * Cerner Conversion Note - Historical ProviderMD - 02/17/2019 2:02 PM SWIMMING INSTRUCTOR Nursing Discharge Summary Entered On: 02/17/2019 14:02 [...] - 02/17/2019 14:02 EST Electronically signed by [facility] Sjh Conversion Operating Room Aide Cerner at 07/10/2022 9:51 PM CDT documented in this encounter Plan of Treatment Upcoming Encounters Date Type Department Care Team (Late st Contact Info) Description 04/15/2025 9:00 AM EST Appointment [facility] Outpatient Treatment [address] [place] [address] documented as of this encounter Visit Diagnoses Not on filedocumented in this encounter Care Teams Chief Lending Officer Relationship Specialty Start Date End Date Marcelino Mobley MD [address] [place] [address] PCP - General Emergency Medicine 03/08/22 documented as of this encounter
--- OUTSIDE RECORDS SUMMARY | 2024-12-02 10:22 | XMS_ITS | Encounter Summary ---
Author Organization [employer] ([place], [place], [place], [place]) Address [address] [place] [address] Care Team Providers Care Child Welfare Assistant Name Role Phone Marcelino Mobley MD Primary Care Provider [phone] Encounter Details Date Type Department Care Team (Late st Contact Info) Description 03/07/2020 Transcribed Document [facility] [place] [facility] [place] [address] ProviderEprhaim MD [address] [place] [address] Social History Tobacco Use Types Packs/Day Years Used Date Smoking Tobacco: Never Assessed Sex and Gender Information Value Date Recorded Sex Assigned at Not on file Legal Sex Male 4:11 PM CDT Gender Identity Not on file Sexual Orientation Not on file documented as of this encounter Miscellaneous Notes * Cerner Conversion Note - Ephraim ProviderMD - 03/07/2020 7:29 AM GROUNDSKEEPER Outpatient Visit History Entered On: 03/07/2020 7:31 [...] Source : Stated Height Entry Format : [place] Height, Feet : 5 ft(Converted to: 152 cm, 60 Inch) Height, Inches : 9 Inch(Converted to: 0 ft 9 Inch, 22.86 cm) Clinical Height : 175.26 cm Weight Source : Standing scale Weight Entry Format : [place] Clinical Dosing Weight : 109.09 kg Weight, Pounds : 240 lb Body Surface Area (BSA) : 2.23 m2 Body Mass Index : 35.5 kg/m2 (HI) [place] Body Weight : 70 kg VA BLAKE [...] VA BLAKE RN - 03/07/2020 7:29 EST [place] Suicide Severity Rating Scale (C-SSRS) CSSRS Past [...] Level : 46 or > High Risk [place] Fall Interventions : Adequate lighting, Assistive devices within reach, Call device within reach, Fall prevention handout/education per facility policy, Hourly comfort/safety rounds, Non-slip footwear, Personal items within reach, Room free of clutter/spills, Wheels locked, Wires/Cords secured AV BLAKE RN - 03/07/2020 7:29 EST Pain Assessment Pain Assessment : Initial assessment Intensity : 0 VA BLAKE RN - 03/07/2020 7:29 EST documented in this encounter Plan of Treatment Upcoming Encounters Date Type Department Care Team (Late st Contact Info) Description 04/15/2025 9:00 AM EST Appointment [facility] Outpatient Treatment [address] [place] [address] documented as of this encounter Visit Diagnoses Not on filedocumented in this encounter Care Teams Child Welfare Assistant Relationship Specialty Start Date End Date Marcelino Mobley MD [address] [place] [address] PCP - General Emergency Medicine 03/08/22 documented as of this encounter
--- OUTSIDE RECORDS SUMMARY | 2024-12-02 10:22 | XMS_ITS | Encounter Summary ---
Author Organization [employer] ([place], [place], [place], [place]) Address [address] [place] [address] Care Team Providers Care Content Curator Name Role Phone Marcelino Mobley MD Primary Care Provider [phone] Encounter Details Date Type Department Care Team (Late st Contact Info) Description 02/17/2019 Transcribed Document [facility] [place] [place] [facility] [place] [address] ProviderEphraim MD [address] [place] [address] Social History Tobacco Use Types Packs/Day Years Used Date Smoking Tobacco: Never Assessed Sex and Gender Information Value Date Recorded Sex Assigned at Not on file Legal Sex Male 4:11 PM CDT Gender Identity Not on file Sexual Orientation Not on file documented as of this encounter Miscellaneous Notes * Cerner Conversion Note - Ephraim ProviderMD - 02/17/2019 8:03 AM SLEEVE SETTER LOCKSTITCH Outpatient Visit History Entered On: 02/17/2019 8:05 [...] Source : Stated Height Entry Format : [place] Height, Feet : 5 ft(Converted to: 152 cm, 60 Inch) Height, Inches : 9 Inch(Converted to: 0 ft 9 Inch, 22.86 cm) Clinical Height : 175.26 cm Weight Source : Standing scale Weight Entry Format : [place] Clinical Dosing Weight : 113.64 kg Weight, Pounds : 250 lb Body Surface Area (BSA) : 2.27 m2 Body Mass Index : 37 kg/m2 (HI) [place] Body Weight : 70 kg EARL CISNEROS [...] EARL CISNEROS RN - 02/17/2019 8:03 EST [place] Suicide Severity Rating Scale (C-SSRS) [...] Level : 46 or > High Risk [place] Fall Interventions : Adequate lighting, Bed in low position, Call device within reach, Wheels locked EARL CISNEROS RN - 02/17/2019 8:03 EST Electronically signed by [facility] Conversion Button Tacker Cerner at 07/10/2022 9:46 PM CDT documented in this encounter Plan of Treatment Upcoming Encounters Date Type Department Care Team (Late st Contact Info) Description 04/15/2025 9:00 AM EST Appointment [facility] Outpatient Treatment [address] [place] [address] documented as of this encounter Visit Diagnoses Not on filedocumented in this encounter Care Teams Content Curator Relationship Specialty Start Date End Date Marcelino Mobley MD [address] [place] [address] PCP - General Emergency Medicine 03/08/22 documented as of this encounter
--- OUTSIDE RECORDS SUMMARY | 2024-12-02 10:22 | XMS_ITS | Clinical Summary ---
Author Organization [facility] Address [address] [place] [id number] Care Team Providers Care Displayer Name Role Phone Tarik Valadez MD Primary Care Provider [phone] Allergies No known active allergies Medications alfuzosin (UROXATRAL) 10 MG 24 hr tablet Take 10 mg by mouth Daily. Active atorvastatin (LIPITOR) 20 MG tablet atorvastatin 20 mg tablet Active bisoprolol (ZEBeta) 5 MG tablet bisoprolol fumarate 5 mg tablet 4 Active cyanocobalamin (VITAMIN B-12) 500 MCG tablet cyanocobalamin (vit B-12) 500 mcg tablet Daily Active gabapentin (NEURONTIN) 100 MG capsule gabapentin 100 mg capsule Active Ocrelizumab (Ocrevus) 300 MG/10ML solution Ocrevus 30 mg/mL intravenous solution Infuse 600 mg every 6 months for Multiple Sclerosis (G35), pre-med with 500 mL bolus normal saline, 50 mg of benadryl IV or PO, 1000 mg Tylenol, and 500 mg solu-medrol. 1 Active Pseudoephedrin e-Naproxen Na (ALEVE-D SINUS & COLD PO) Active Pseudoephedrin e-Naproxen Na (ALEVE-D SINUS & COLD PO) Active simvastatin (ZOCOR) 40 MG tablet Take by mouth. 4 Active Multiple Vitamins-[place] als (PRESERVISION AREDS 2 PO) Vision-[place] Preserve tablet Take by oral route. Active vitamin E 400 UNIT/15ML liquid vitamin E 15 unit/0.3 mL oral drops Daily Active HYDROcodone-ac etaminophen (NORCO) 7.5-325 MG per tabletIndicati ons:BPH (benign prostatic hyperplasia) Take 1-2 tablets by mouth Every 4 (Four) Hours As Needed for Moderate Pain (Pain). 15 tablet 06/09/2021 10:36 AM EDT 2 Active docusate sodium (COLACE) 250 MG capsuleIndicat ions:BPH (benign prostatic hyperplasia) Take 1 capsule by mouth 2 (Two) Times a Day As Needed for Constipation. 30 capsule 06/09/2021 10:36 AM EDT 2 Active Active Problems Problem Noted Date Diagnosed Date BPH (benign prostatic hyperplasia) 06/08/2021 Social History Tobacco Use Types Packs/Day Years Used Date Smoking Tobacco: Light Smoker Cigars Smokeless Tobacco: Never AUDIT-C Answer Date Recorded Q1: How often do you have a drink containing alcohol? Never 06/08/2021 Q2: How many drinks containi ng alcohol do you have on a typical day when you are drinking? Patient does not drink 2 Q3: How often do you have si x or more drinks on one occasion? Never 06/08/2021 Abuse Screen Answer Date Recorded Unsafe at Home or Work/School Not on file Feels Threatened by Someone? Not on file 11/2022 Does Anyone Keep You from Co ntacting Others or Doint Things Outside the Home? Not on file 12/30/2022 Physical Sign of Abuse Present Not on file 1 Housing Stability Answer Date Recorded Current Living Arrangements Not on file 11/2022 Potentially Unsafe Housing Conditions Not on juanjose e 12/30/2022 Family and Community Support Answer Krishan e Recorded Help with Day-to-Day Activities Not on file 12/30/2022 Lonely or Isolated Not on file 12/30/2022 Employment Answer Date Recorded Do you want help finding or keeping work or a walter b? Not on file 12/30/2022 Disabilities Answer Date Recorded Concentrating, Remembering, or Making Decisions Difficulty Not on file 12/30/2022 Doing Errands Independently Difficulty Not on fi le 12/30/2022 Education Answer Date Recorded Help with school or training? Not on file Preferred Language Not on file 12/30/2022 Sex and Gender Information Value Date Recorded Sex Assigned at Not on file Legal Sex Male 1:23 PM EDT Gender Identity Not on file Sexual Orientation Not on file Last Filed Vital Signs Vital Sign Reading Time Taken Comments Blood Pressure 135/60 06/09/2021 8:38 AM EDT Pulse 65 06/09/2021 8:38 AM EDT Temperature 36.7 C (98.1 F) 06/09/2021 7:45 AM EDT Respiratory Rate 16 06/09/2021 7:45 AM EDT Oxygen Saturation 92% 06/09/2021 9:00 AM EDT Inhaled Oxygen Concentration - - Weight 102 kg (224 lb 13.9 oz) 06/09/2021 7:28 A M EDT Height 175.3 cm (5' 9.02 ) 06/09/2021 7:28 AM ED T Body Mass Index 33.19 06/09/2021 7:28 AM EDT Plan of Treatment Health Maintenance Due Date Last Done Comments Pneumococcal Vaccine 50+ (1 of 2 - PCV) 1964 03/24/2016 TDAP/TD VACCINES (1 - Tdap) 1964 ZOSTER VACCINE (1 of 2) 02/08/1996 RSV Vaccine - Adults (1 - 1- dose 75+ series) 2021 ANNUAL WELLNESS VISIT 06/04/2021 HEPATITIS C SCREENING 06/04/2021 COVID-19 Vaccine (3 - 2024-2 6 season) 2024 06/20/2020, 05/22/2020 INFLUENZA VACCINE 12/22/2024 01/25/2022, , 01/10/2020, Additional history exists COLOGUARD Discontinued 12/14/2023, 10/12/2018 COLORECTAL CANCER SCREENING Discontinued COLON CANCER SCREENING 5 OLENA Campos SIGMOIDOSCOPY Discontinued COLONOSCOPY Discontinued CT COLONOGRAPHY Discontinued FECAL OCCULT BLOOD TEST Discontinued FIT Testing (1 year) Discontinued Insurance [place] [id number] MEDICARE A & B [facility] OPTIONS Care Teams Displayer Relationship Specialty Start Date End Date Tarik Valadez MD [address] [place] [address] [address] [place], [place] [address] PCP - General Family Medicine 06/05/21
--- OUTSIDE RECORDS SUMMARY | 2024-12-02 10:22 | XMS_ITS | Encounter Summary ---
Author Organization [employer] ([place], [place], [place], [place]) Address [address] [place] [address] Care Team Providers Care Railroad Brakeman Name Role Phone Marcelino Mobley MD Primary Care Provider [phone] Encounter Details Date Type Department Care Team (Late st Contact Info) Description 09/06/2020 Transcribed Document [facility] [place] [address] ProviderEphraim MD [address] [place] [address] Social History Tobacco Use Types Packs/Day [...] Source : Stated Height Entry Format : [place] Height, Feet : 5 ft(Converted to: 152 cm, 60 Inch) Height, Inches : 9 Inch(Converted to: 0 ft 9 Inch, 22.86 cm) Clinical Height : 175.26 cm Weight Source : Standing scale Weight Entry Format : [place] Clinical Dosing Weight : 113.64 kg Weight, Pounds : 250 lb Body Surface Area (BSA) : 2.27 m2 Body Mass Index : 37 kg/m2 (HI) [place] Body Weight : 70 kg CHAUNCEY BARGER [...] CHAUNCEY BARGER RN - 09/06/2020 7:19 EDT [place] Suicide Severity Rating Scale (C-SSRS) CSSRS Past [...] Level : 46 or > High Risk [place] Fall Interventions : Adequate lighting, Call device [...] Info) Description 04/15/2025 9:00 AM EST Appointment [facility] Outpatient Treatment [address] [place] [address] documented as of this encounter Visit Diagnoses Not on filedocumented in this encounter Care Teams Railroad Brakeman Relationship Specialty Start Date End Date Marcelino Mobley MD [address] [place] [address] PCP - General Emergency Medicine 03/08/22 documented as of this encounter
--- OUTSIDE RECORDS SUMMARY | 2024-12-02 10:22 | XMS_ITS | Encounter Summary ---
Author Organization [facility] Address [address] [place] [address] Care Team Providers Care Physician Non Invasive Cardiologist Name Role Phone Tarik Valadez MD Primary Care Provider [phone] Encounter Details Date Type Department Care Team (Late st Contact Info) Description 08/01/[address] [facility] HISTORICAL CONV [address] [place] [address] Interface, See Report Social History Tobacco Use Types Packs/Day Years Used Date Smoking Tobacco: Never Assessed Sex and Gender Information Value Date Recorded Sex Assigned at Not on file Legal Sex Male 1:23 PM EDT Gender Identity Not on file Sexual Orientation Not on file documented as of this encounter H&P Notes * Interface, See Report - 08/01/2011 4:06 PM EDT Chas Kasper M.D. ' Jefry Infante M.D. ' Noel Barakat M.D. ' RUBIN Roa M.D. ' Karan Whitley M.D. ' Adina Luna APRN [address] [place] [address], [address] OFFICE NOTE LUIS MANUEL PERDOMO : 1945 DATE OF VISIT: 08/01/2011 PROBLEM: 1. Probable multiple sclerosis. a. 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 b. Abnormal CSF protein studies. c. No findings to support metastatic disease on imaging studies or physical exam. HISTORY: Mr. Perdomo has been on the high dose steroids since he has been discharged from [facility]. He has had some improvement in his walking. He noticed a little improvement in the hearing in his left ear. He has not had any other new findings. He has been tolerating the prednisone relatively well. He has had some swelling including facial changes with some insomnia. He has not had any dyspepsia or tremor. REVIEW OF SYSTEMS: No cough, wheezing, dyspnea, PND, orthopnea or pedal edema. PHYSICAL EXAM: GENERAL: He is comfortable appearing. VITAL SIGNS: Afebrile. Vital signs acceptable. HEENT: Sclerae anicteric. Oral mucosa normal. HEART: Regular rhythm and rate. LUNGS: No rub, crackles or wheezes. ABDOMEN: Soft without masses, organomegaly. EXTREMITIES: Without edema or cords. NODES: There were no lymph nodes felt. LABORATORY DATA: The CSF protein did show all did show oligoclonal banding. His CSF cytology was all negative. LUIS MANUEL PERDOMO : 1945 DATE OF VISIT: 08/01/2011 IMPRESSION: Multiple neurologic abnormalities including the symptoms described above as well as the multiple small abnormalities on MRI. While these may represent occult metastatic disease, he does not have obvious evidence for a primary tumor, either in the lung or melanoma or other primary. The abnormal protein studies suggest this may be an atypical presentation of multiple sclerosis. PLAN: 1. He will continue the prednisone and see Dr. Hines in Neurology next week. 2. I will see him back in a month for regular follow-up unless Dr. Hines has made the diagnosis of multiple sclerosis and started therapy. In that case I will be glad to see him only p.r.n. 3. I will do further metastatic work-up if there is not a diagnosis made of multiple sclerosis and I would try to obtain a PET scan to look for occult lung cancer. Jefry Infante M.D.* SUNSHINE/aquilesw Doc. ID [id number] Rev. #0 cc: Tarik Valadez M.D.* Randall Hines M.D.* Page 2 of 2 Page 1 of 2 Authenticated by JEFRY INFANTE M.D. On 08/05/2011 03:11:54 PM documented in this encounter Plan of Treatment Not on file documented as of this encounter Visit Diagnoses Not on filedocumented in this encounter Additional Health Concerns Infection Onset Date Last Indicated Resolved Time COVID Screen (preop/placement) 06/05/2021 06/05/2021 06/05/2021 8:08 PM EDT documented as of this encounter Care Teams Physician Non Invasive Cardiologist Relationship Specialty Start Date End Date Tarik Valadez MD [address] [place] [address] PCP - General Family Medicine 06/05/21 documented as of this encounter
--- OUTSIDE RECORDS SUMMARY | 2024-12-02 10:22 | XMS_ITS | Clinical Summary ---
Author Organization [facility] Address [address] [place] [address] Care Team Providers Care Merchandising Execution Manager Name Role Phone Tarik Valadez MD Primary Care Provider [phone] Encounters Date Type Department Care Team Description 09/02/2024 Telephone [facility] [address], [address] [place] [address] Bola Colunga MD from Last [...] Date Last Done Comments [facility]-Depression Screening 1945 [facility]-/Child/Adol SDOH Screenings 1945 [facility]- SDOH Screenings 02/08/1964 [facility]-Adult SDOH Screenings 02/08/1964 [facility]-DTaP,Tdap,and Td Vaccine s (1 - Tdap) 1965 [facility]-Pneumococcal Vaccine: 50 + Years (1 of 1 - PCV) 02/08/1996 [facility]-Zoster Vaccines (1 of 2) 02/08/1996 [facility]-RSV Vaccine: 60+ Years o r (1 - 1-dose 75+ series) 2021 [id number]-28 Vaccine (1 - 20 24-25 season) 2024 [facility]-Influenza Vaccine (#1) 2024 HPV Vaccines Aged Out No longer [...] age to complete this topic Care Teams Merchandising Execution Manager Relationship Specialty Start Date End Date Tarik Valadez MD [address] [place], [place] [id number] PCP - General 08/04/20
--- OUTSIDE RECORDS SUMMARY | 2024-12-02 10:22 | XMS_ITS | Referral Summary ---
Author Organization [employer] ([place], [place], [place], [place]) Address [address] [place] [address] Care Team Providers Care Game Warden Name Role Phone Marcelino Mobley MD Primary Care Provider [phone] Encounters Date Type Department Care Team Description 10/11/2024 8:00 AM EDT - 10/11/2024 11:59 PM EDT Hospital Encounter [facility] Outpatient Treatment [address] [place] [address] Tiarra Pratt DO Multiple sclerosis, relapsing-remitting (HCC) (Primary Dx) Discharge Disposition: Home or Self Care from Last 3 Months Allergies No known active allergies Medications alfuzosin [...] capsule Take 250 mg by mouth. 06/10/19 22 Active furosemide (LASIX) 40 MG tablet Take [...] Date Diagnosed Date Multiple sclerosis, relapsing-remitting 03/08/20 22 Social History Tobacco Use Types Packs/Day Years [...] Date El rded Speak language other than Cameroonian at home Not on file 04/04/2023 Want [...] Info) Description 04/15/2025 9:00 AM EST Appointment [facility] Outpatient Treatment [address] [place] [address] Insurance MEDICARE PART A B FOR[facility]LY [facility] Care Teams Game Warden Relationship Specialty Start Date End Date Marcelino Mobley MD [address] [place] [address] PCP - General Emergency Medicine 03/08/22
--- OUTSIDE RECORDS SUMMARY | 2024-12-02 10:22 | XMS_ITS | Encounter Summary ---
Author Organization [employer] ([place], [place], [place], [place]) Address [address] [place] [address] Care Team Providers Care Engineering Leader Name Role Phone Marcelino Mobley MD Primary Care Provider [phone] Encounter Details Date Type Department Care Team (Late st Contact Info) Description 03/03/2019 Transcribed Document [facility] [place] [facility] [place] [address] ProviderEphraim MD [address] [place] [address] Social History Tobacco Use Types Packs/Day Years Used Date Smoking Tobacco: Never Assessed Sex and Gender Information Value Date Recorded Sex Assigned at Not on file Legal Sex Male 4:11 PM CDT Gender Identity Not on file Sexual Orientation Not on file documented as of this encounter Miscellaneous Notes * Cerner Conversion Note - Ephraim ProviderMD - 03/03/2019 7:25 AM RADIOGRAPHIC TECHNOLOGIST Outpatient Visit History Entered On: 03/03/2019 7:28 EST Performed On: 03/03/2019 7:25 EST by CLAUDIA TEMPLETNO RN Vital Measurements Temperature Source : Temporal [...] Source : Chart Height Entry Format : [place] Height, Feet : 5 ft(Converted to: 152 cm, 60 Inch) Height, Inches : 9 Inch(Converted to: 0 ft 9 Inch, 22.86 cm) Clinical Height : 175.26 cm Weight Source : Standing scale Weight Entry Format : [place] Clinical Dosing Weight : 113.64 kg Weight, Pounds : 250 lb Body Surface Area (BSA) : 2.27 m2 Body Mass Index : 37 kg/m2 (HI) [place] Body Weight : 70 kg CLAUDIA TEMPLETON [...] CLAUDIA TEMPLETON RN - 03/03/2019 7:25 EST [place] Suicide Severity Rating Scale (C-SSRS) CSSRS Past [...] Level : 46 or > High Risk [place] Fall Interventions : Adequate lighting, Assistive devices [...] 03/03/2019 7:25 EST Electronically signed by Bienvenido [facility] Conversion Gym Instructor Cerner at 07/10/2022 10:07 PM CDT documented in this encounter Plan of Treatment Upcoming Encounters Date Type Department Care Team (Late st Contact Info) Description 04/15/2025 9:00 AM EST Appointment [facility] Outpatient Treatment [address] [place] [address] documented as of this encounter Visit Diagnoses Not on filedocumented in this encounter Care Teams Engineering Leader Relationship Specialty Start Date End Date Marcelino Mobley MD [address] [place] [address] PCP - General Emergency Medicine 03/08/22 documented as of this encounter
--- OUTSIDE RECORDS SUMMARY | 2024-12-02 10:22 | XMS_ITS | Encounter Summary ---
Author Organization [employer] ([place], [place], [place], [place]) Address [address] [place] [address] Care Team Providers Care Manager Of Global Name Role Phone Marcelino Mobley MD Primary Care Provider [phone] Encounter Details Date Type Department Care Team (Late st Contact Info) Description 03/03/2019 Transcribed Document [facility] [place] [facility] [place] [address] ProviderEphraim MD [address] [place] [address] Social History Tobacco Use Types Packs/Day Years Used Date Smoking Tobacco: Never Assessed Sex and Gender Information Value Date Recorded Sex Assigned at Not on file Legal Sex Male 4:11 PM CDT Gender Identity Not on file Sexual Orientation Not on file documented as of this encounter Miscellaneous Notes * Cerner Conversion Note - Historical ProviderMD - 03/03/2019 12:38 PM CUSTODIAL FOREMAN Nursing Discharge Summary Entered On: 03/03/2019 12:39 [...] Info) Description 04/15/2025 9:00 AM EST Appointment [facility] Outpatient Treatment [address] [place] [address] documented as of this encounter Visit Diagnoses Not on filedocumented in this encounter Care Teams Manager Of Global Relationship Specialty Start Date End Date Marcelino Mobley MD [address] [place] [address] PCP - General Emergency Medicine 03/08/22 documented as of this encounter
--- OUTSIDE RECORDS SUMMARY | 2024-12-02 10:22 | XMS_ITS | Clinical Summary ---
Author Organization [facility] Address [address] [place] [address] Phone Care Team Providers Care Policy Intern Name Role Phone Tesha BEARD, Tj Sevilla [ ] Conditions or Problems Problem Name Problem Code Onset Date Status Entry Date Provider Comment Standard Description Annotate PERSONAL HISTORY OF IMMUNOSUPPRES LOC THERAPY 528430604 (SNOMED CT) 10/29 Active 10/29 Tj Parkinson MD History of immunosuppressiv e therapy Multiple sclerosis 99188051 (SNOMED CT) 09/29 Active 09/29 Tiarra Ulrich Multiple sclerosis Need for prophylactic vaccination against Hepatitis B 976336284 (SNOMED CT) 09/29 Active 09/29 Tiarra Ulrich Procedure needed Immunity status testing, antibody response 345111747 (SNOMED CT) 09/29 Active 09/29 Tiarra Ulrich Procedure carried out on subject Medications Medication Instructions Start Date Stop Date Generic Name NDC Provider BISOPROLOL FUMARATE 5 MG TABS Take 1 tablet by mouth daily BISOPROLOL FUMARATE 81475651324 Martha S ATORVASTATIN CALCIUM 20 MG TABS Take one (1) tablet by mouth twice a day ATORVASTATIN CALCIUM 26831657725 Martha S ALFUZOSIN HCL ER 10 MG [id number] Take 1 tablet by mouth daily ALFUZOSIN HCL 43203366060 Martha S GABAPENTIN 100 MG CAPS Take one (1) tablet by mouth four times a day GABAPENTIN 34579795474 Martha S TECFIDERA 240 MG CPDR Take one (1) tablet by mouth twice a day DIMETHYL FUMARATE 33642742616 Martha S ADULT ASPIRIN REGIMEN 81 MG ORAL TABLET DELAYED RELEASE Take 1 tablet by mouth daily ASPIRIN 70891767878 Martha S PRESERVISION AREDS 2+MULTI VIT CAPS Take one (1) tablet by mouth twice a day MULTIPLE VITAMINS-MINERALS 38909649542 Martha Dean E 1000 CAPSULE Take 1 tablet by mouth daily VITAMIN E CAPS 54611474374 Martha Dean VITAMIN D3 50 MCG (2000 UT) TABS Take one (1) tablet by mouth twice a day CHOLECALCIFEROL 69702032069 Martha Dean B-12 1000 MCG CAPS Take 1 tablet by mouth daily CYANOCOBALAMIN 49340537039 Martha Dean PEPCID 20 MG TABS Take 1 tablet by mouth daily prn FAMOTIDINE 05680779074 Martha Dean 4X PROBIOTIC TABS Take 1 tablet by mouth daily PROBIOTIC PRODUCT 09305306509 Martha Dean Medications Administered No information available. [...] Procedures Code Procedure Name Date Entry Date 528521 Hep B Surface AG CPT-41328 Hep B Core AB, Total CPT-30810 CMP CPT-65877 Hep B Surface AB CPT-sl STAT Labs [...]
--- OUTSIDE RECORDS SUMMARY | 2024-12-02 10:22 | XMS_ITS | Encounter Summary ---
Author Organization [employer] ([place], [place], [place], [place]) Address [address] [place] [address] Care Team Providers Care Core Composer Feeder Name Role Phone Marcelino Mobley MD Primary Care Provider [phone] Encounter Details Date Type Department Care Team (Late st Contact Info) Description 03/08/2021 Transcribed Document [facility] [place] [address] ProviderEphraim MD [address] [place] [address] Social History Tobacco Use Types Packs/Day Years Used Date Smoking Tobacco: Never Assessed Sex and Gender Information Value Date Recorded Sex Assigned at Not on file Legal Sex Male 4:11 PM CDT Gender Identity Not on file Sexual Orientation Not on file documented as of this encounter Miscellaneous Notes * Cerner Conversion Note - Historical ProviderMD - 03/08/2021 1:10 PM HEALTH TECHNICAL WRITER Nursing Discharge Summary Entered On: 03/08/2021 13:17 [...] 03/08/2021 13:17 EST Electronically signed by Bienvenido [facility] Conversion Dye Can Operator Cerner at 07/10/2022 9:55 PM CDT documented in this encounter Plan of Treatment Upcoming Encounters Date Type Department Care Team (Late st Contact Info) Description 04/15/2025 9:00 AM EST Appointment [facility] Outpatient Treatment [address] [place] [address] documented as of this encounter Visit Diagnoses Not on filedocumented in this encounter Care Teams Core Composer Feeder Relationship Specialty Start Date End Date Marcelino Mobley MD [address] [place] [address] PCP - General Emergency Medicine 03/08/22 documented as of this encounter
--- OUTSIDE RECORDS SUMMARY | 2024-12-02 10:22 | XMS_ITS | Encounter Summary ---
Author Organization [employer] ([place], [place], [place], [place]) Address [address] [place] [address] Care Team Providers Care Detective Precinct Name Role Phone Marcelino Mobley MD Primary Care Provider [phone] Encounter Details Date Type Department Care Team (Late st Contact Info) Description 09/06/2020 Transcribed Document [facility] [place] [facility] [place] [address] ProviderEphraim MD [address] [place] [address] Social History Tobacco Use Types Packs/Day [...] 04/15/2025 9:00 AM EST Appointment [facility] Outpatient Treatment [address] [place] [address] documented as of this encounter Visit Diagnoses Not on filedocumented in this encounter Care Teams Detective Precinct Relationship Specialty Start Date End Date Marcelino Mobley MD [address] [place] [address] PCP - General Emergency Medicine 03/08/22 documented as of this encounter
--- OUTSIDE RECORDS SUMMARY | 2024-12-02 10:22 | XMS_ITS | Encounter Summary ---
Author Organization [facility] ([place], [place], [place], [place]) Address [address] [place] [address] Care Team Providers Care Gas Meter Installer Name Role Phone Marcelino Mobley MD Primary Care Provider [phone] Encounter Details Date Type Department Care Team (Late st Contact Info) Description 03/07/2020 Transcribed Document [facility] [place] [address] [place] [address] ProviderEphraim MD [address] [place] [address] Social History Tobacco Use Types Packs/Day Years Used Date Smoking Tobacco: Never Assessed Sex and Gender Information Value Date Recorded Sex Assigned at Not on file Legal Sex Male 4:11 PM CDT Gender Identity Not on file Sexual Orientation Not on file documented as of this encounter Miscellaneous Notes * Cerner Conversion Note - Historical ProviderMD - 03/07/2020 1:00 PM SHREDDER TENDER PEAT Nursing Discharge Summary Entered On: 03/07/2020 12:54 EST Performed On: 03/07/2020 13:00 EST by [facility] BLAKE, relay engineer Documentation Discharge Date/Time : 03/07/2020 13:00 EST [...] 03/07/2020 12:53 EST Electronically signed by Bienvenido, [facility] Conversion Bulk Sealer Operator Cerner at 07/10/2022 9:45 PM CDT documented in this encounter Plan of Treatment Upcoming Encounters Date Type Department Care Team (Late st Contact Info) Description 04/15/2025 9:00 AM EST Appointment [facility] Outpatient Treatment [address] [place] [address] documented as of this encounter Visit Diagnoses Not on filedocumented in this encounter Care Teams Gas Meter Installer Relationship Specialty Start Date End Date Marcelino Mobley MD [address] [place] [address] PCP - General Emergency Medicine 03/08/22 documented as of this encounter
--- OUTSIDE RECORDS SUMMARY | 2024-12-02 10:22 | XMS_ITS | Clinical Summary ---
Author Organization [facility] Address [facility] [place] [id number] Care Team Providers Care Independent Beauty Consultant Name Role Phone None, Physician Primary Care Provider Unavailabl e Allergies No known active allergies Medications bisoprolol (ZEBETA) 5 MG tablet Take 5 mg by mouth daily Active simvastatin (ZOCOR) 40 MG tablet Take 40 mg by mouth nightly Active gabapentin (NEURONTIN) 800 MG tablet Take 800 mg by mouth 2 (two) times daily Active aspirin 81 MG tablet Take 81 mg by mouth daily Active vitamin E 100 UNIT capsule Take 1,000 Units by mouth daily Active vitamin B-12 (CYANOCOBALAMIN ) 1000 MCG tablet Take 1,000 mcg by mouth daily Active furosemide (LASIX) 40 MG tablet Take 40 mg by mouth as needed Active tamsulosin (FLOMAX) 0.4 MG CAPS Take 0.4 mg by mouth daily Active mirabegron (MYRBETRIQ) 25 MG 24 hr tablet Take 25 mg by mouth daily Active baclofen (LIORESAL) 10 MG tabletIndicatio ns:Spasticity Take 1 tablet by mouth 3 (three) times daily Titrate per MD schedule 90 tablet 0 07/27/2015 Active Active Problems Problem Noted Date Diagnosed Date Multiple sclerosis 07/30/2015 Social History Tobacco Use Types Packs/Day Years Used Date Smoking Tobacco: Former Cigarettes Q uit: 07/26/2013 Alcohol Use Standard Drinks/Week Comments Not Asked 0 (1 standard drink = 0.6 oz pur e alcohol) Sex and Gender Information Value Date Recorded Sex Assigned at Not on file Legal Sex Male 3:05 PM EDT Gender Identity Not on file Sexual Orientation Not on file Last Filed Vital Signs Vital Sign Reading Time Taken Comments Blood Pressure 104/64 07/27/2015 3:04 PM EDT Pulse 69 07/27/2015 3:04 PM EDT Temperature 36.7 C (98 F) 07/27/2015 3:04 PM EDT Respiratory Rate - - Oxygen Saturation 94% 07/27/2015 3:04 PM EDT Inhaled Oxygen Concentration - - Weight 106.6 kg (235 lb) 07/27/2015 3:04 PM EDT Height 175.3 cm (5' 9 ) 07/27/2015 3:04 PM EDT Body Mass Index 34.7 07/27/2015 3:04 PM EDT Plan of Treatment Health Maintenance Due Date Last Done Comments Hepatitis C Screening 1945 Tdap/Td Vaccine >11 yo (1 - Tdap) 1965 Pneumococcal Vaccines >50 yo (1 of 1 - PCV) 02/08/1996 Shingles (Shingrix) (1 of 2) 02/08/1996 Annual SDOH Screening 03/24/2024 Influenza Vaccine (#1) 2024 Haemophilus Influenzae Type B (Hib) Vaccine Aged Out No longer eligible b ased on patient's age to complete this topic Hepatitis A (HepA) Vaccine Aged Out N o longer eligible based on patient's age to complete this topic Hepatitis B (HepB) Vaccine Aged Out N o longer eligible based on patient's age to complete this topic Meningococcal ACWY Aged Out No longer eligible based on patient's age to complete this topic Polio (IPV) Aged Out No longer eligi ble based on patient's age to complete this topic Rotavirus (RV) Vaccine Aged Out No lo nger eligible based on patient's age to complete this topic Insurance [place] [address] [place] [address] Advance Directives Documents on File Type Date Recorded Patient Senior Web Services Developer Expl anation Power of Nursery Laborer 05/29/2015 1:57 PM Care Teams Independent Beauty Consultant Relationship Specialty Start Date End Date None, Physician PCP - General 07/27/15
--- OUTSIDE RECORDS SUMMARY | 2024-12-02 10:22 | XMS_ITS | Encounter Summary ---
Author Organization [employer] ([place], [place], [place], [place]) Address [address] [place] [address] Care Team Providers Care Film Printer Name Role Phone Marcelino Mobley MD Primary Care Provider [phone] Encounter Details Date Type Department Care Team (Late st Contact Info) Description 03/08/2021 Transcribed Document [facility] [place] [address] ProviderEphraim MD [address] [place] [address] Social History Tobacco Use Types Packs/Day Years Used Date Smoking Tobacco: Never Assessed Sex and Gender Information Value Date Recorded Sex Assigned at Not on file Legal Sex Male 4:11 PM CDT Gender Identity Not on file Sexual Orientation Not on file documented as of this encounter Miscellaneous Notes * Cerner Conversion Note - Historical ProviderMD - 03/08/2021 1:00 PM PATIENT EXPERIENCE COORDINATOR Event Note Entered On: 03/08/2021 13:09 EST [...] Info) Description 04/15/2025 9:00 AM EST Appointment [facility] Outpatient Treatment [address] [place] [phone] documented as of this encounter Visit Diagnoses Not on filedocumented in this encounter Care Teams Film Printer Relationship Specialty Start Date End Date Marcelino Mobley MD [address] [place] [address] PCP - General Emergency Medicine 03/08/22 documented as of this encounter
--- OUTSIDE RECORDS SUMMARY | 2024-12-02 10:22 | XMS_ITS | Encounter Summary ---
Author Organization [employer] ([place], [place], [place], [place]) Address [address] [place] [address] Care Team Providers Care Workforce Management Consultant Name Role Phone Marcelino Mobley MD Primary Care Provider [phone] Encounter Details Date Type Department Care Team (Late st Contact Info) Description 09/06/2019 Transcribed Document [facility] [place] [facility] [place] [address] ProviderEphraim MD [address] [place] [id number] Social History Tobacco Use Types Packs/Day Years [...] Source : Chart Height Entry Format : [place] Height, Feet : 5 ft(Converted to: 152 cm, 60 Inch) Height, Inches : 9 Inch(Converted to: 0 ft 9 Inch, 22.86 cm) Clinical Height : 175.26 cm Weight Source : Standing scale Weight Entry Format : [place] Clinical Dosing Weight : 113.64 kg Weight, Pounds : 250 lb Body Surface Area (BSA) : 2.27 m2 Body Mass Index : 37 kg/m2 (HI) [place] Body Weight : 70 kg LUIS VELASQUEZ [...] LUIS VELASQUEZ RN - 09/06/2019 7:45 EDT [place] Suicide Severity Rating Scale (C-SSRS) CSSRS Past [...] Level : 46 or > High Risk Martelle Fall Interventions : Adequate lighting, Assistive devices [...] Info) Description 04/15/2025 9:00 AM EST Appointment [facility] Outpatient Treatment [address] [place] [address] documented as of this encounter Visit Diagnoses Not on filedocumented in this encounter Care Teams Workforce Management Consultant Relationship Specialty Start Date End Date Marcelino Mobley MD [address] [place] [address] PCP - General Emergency Medicine 03/08/22 documented as of this encounter
--- NOTE | 2024-12-02 10:40 | CT_ITS ---
FINAL REPORT TECHNIQUE: Thin section axial images were obtained through the head after contrast administration per CT angiogram protocol. Multiplanar reconstruction images were obtained from the axial data. Exam was performed using dose reduction techniques such as automated exposure control, adjustment of the mA and kV according to patient's size, and use of iterative reconstruction technique. CLINICAL HISTORY: syncope FINDINGS: CTA HEAD: The intracerebral portions of the carotid arteries are patent. The anterior and posterior circulation are patent. The basilar artery is patent. There is a short segment of left vertebral artery at the level of the foramen magnum that does not contain contrast. This may be related to an anatomic variant or a short segment stenosis. There is reconstitution just proximal to the basilar artery. There is no evidence of AVM. IMPRESSION: Unremarkable anterior circulation. 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 Short segment stenosis or occlusion felt to be less likely but not excluded. Reviewed, Interpreted and Dictated by Latha Rosario MD Transcribed by Enma Boland Authenticated and . [facility]
--- NOTE | 2024-12-02 10:40 | CT_ITS ---
FINAL REPORT TECHNIQUE: Axial imaging of the chest is obtained after the administration of contrast. 3-D MIP reformatted images were also obtained and reviewed per PE protocol. CLINICAL HISTORY: syncope FINDINGS: The pulmonary arteries are well filled. There is no evidence of pulmonary embolus. There is no aortic dissection. Heart size is mildly enlarged. There is no axillary lymphadenopathy. There are mildly prominent right paratracheal lymph nodes. There is mild right hilar and subcarinal adenopathy. Small bilateral pleural effusions are identified. There is no pericardial effusion. There are patchy bilateral subpleural predominant airspace opacities, worse in the upper lobes. Findings are favored to represent pneumonia, consider viral etiology. Bilateral ground glass opacities are likely related to underlying pulmonary edema. Limited evaluation of the upper abdomen is without acute abnormality. No acute osseous abnormality. IMPRESSION: No evidence of pulmonary embolism or aortic dissection. Patchy bilateral airspace opacities most consistent with pneumonia. Ground glass opacities likely represent underlying pulmonary edema. Lymphadenopathy, likely reactive. Reviewed, Interpreted and Dictated by Latha Rosario MD Transcribed by Enma Boland Authenticated and [facility]
--- NOTE | 2024-12-02 10:40 | CT_ITS ---
FINAL REPORT TECHNIQUE: Thin section axial images were obtained from the aortic arch to the skull base after intravenous contrast injection per CTA protocol. Multiplanar reconstruction images were obtained. Exam was performed using dose reduction techniques and the ALARA principle. CLINICAL HISTORY: syncope FINDINGS: CTA NECK: Aortic arch: There is bovine configuration to the arch. There is mild to moderate stenosis of the left subclavian artery just distal to its origin. Right carotid artery: There is calcified plaque at the carotid bulb and proximal ICA. There is approximately 60 to 70% stenosis at the proximal ICA. The more distal portions are normal to the skull base. Left carotid artery: There is calcified plaque at the carotid bulb and proximal ICA. There is high-grade stenosis of the proximal most ICA estimated at 70 to 80%. The more distal portions are normal to the skull base. Vertebral arteries: The vertebral arteries are patent without stenosis or large vessel occlusion. Other soft tissues: No acute soft tissue abnormality identified. IMPRESSION: Approximately 60 to 70% stenosis of the proximal right ICA. Approximate 70 to 80% stenosis of the proximal left ICA. Reviewed, Interpreted and Dictated by Latha Rosario MD Transcribed by Enma Boland Authenticated and [facility]
--- NOTE | 2024-12-02 10:40 | ED_ITS ---
Discharge Plan Disposition Patient Disposition: Home, Self-Care Prescriptions Prescriptions: No Action Rupald (6 month) 45 mg syringe 45 mg SQ [id number] Ocrevus 30 mg/mL solution 600 mg IV [id number] melatonin 3 mg capsule 3 mg PO HS PRN famotidine 20 mg tablet 20 mg PO BID Qty: 60 5RF bisoprolol fumarate 5 mg tablet 5 mg PO DAILY 30 Days Qty: 30 0RF lisinopril 5 mg tablet 5 mg PO DAILY Qty: 30 2RF atorvastatin 20 mg tablet See Rx Instructions .ROUTE .COMPLEX Qty: 90 0RF Dose Instruction: Take 1 tablet by mouth once daily Rx Instructions: Take 1 tablet by mouth once daily vitamin E 400 unit Tablet 400 unit PO DAILY gabapentin 100 mg Capsule 200 mg PO TID 30 Days Qty: 180 0RF methenamine hippurate 1 gram tablet 1 g PO BID 30 Days Qty: 60 0RF aspirin 81 mg Tablet 81 mg PO DAILY 30 Days Qty: 30 0RF polyethylene glycol 3350 [Miralax] 17 gram/dose Powder 17 g PO DAILY Qty: 238 0RF metformin 500 mg Tablet,Er Jenna.Retention 24 Hr 500 mg PO DAILY Qty: 30 0RF cholecalciferol (vitamin D3) [Vitamin D3] 50 mcg (2,000 unit) Capsule 2,000 unit PO DAILY Qty: 30 0RF silodosin 8 mg capsule 8 mg PO DAILY 30 Days Qty: 30 0RF PreserVision AREDS 2,148 mcg-113 mg-45 mg-17.4mg Tablet 1 tab PO BID 30 Days Qty: 60 0RF sodium chloride 1,000 mg Tablet,Soluble 1,000 mg PO DAILY 30 Days Qty: 30 0RF Referrals Follow up/Referrals: Faisal Pepper MD [Staff Physician, Cardiology] - See instructions Nick Dale MD [Primary Care Provider, Family Practice] - See instructions Clinical Impressions Clinical Impression: CHF (congestive heart failure), Syncope Instructions Patient Instructions: DI for Syncope in Adults (Fainting), DI for Heart Failure Print Language Print Language: Serbian Discharge ED Provider: Santa Griffin General Adult HPI <Kate Lowery (ED), [employer] - Last Filed: 12/02/24 16:49> General Chief complaint: Syncope Stated complaint: Syncope Time Seen by Provider: 12/02/24 10:32 Mode of Arrival: EMS Source of Information: Patient and EMS Description of Symptoms (Recalled from ER Triage Doc. by RN): Pateint presents to ED via EMS from [facility] after having a syncopal episode. Pateint states he was sitting in a wheelchair when he bagan to feel lightheaded. EMS reports per staff patient did not fall, patient denies injuries. Patient states he was at his PCP for a regular office visit, patient denies any and all complaints at this time. History of Present Illness HPI narrative: 79-year-old male presents to the ED via EMS from Dr. Lira's office for syncopal episode. Patient states he was sitting in a wheelchair when he began to feel lightheaded and he syncopized. Patient did not fall or have any injuries. He was just at his doctor's office for a normal office visit. He has no complaints. He says he has these spells all the time. Patient states that nothing is ever resolved as to why these happen. He has no headache, no chest pain, no shortness of breath. He always has normal sugar levels. Patient does have MS. Related Data Home Medications ?Medication ?Instructions ?Recorded ?Confirmed vitamin E 400 unit tablet 400 unit PO DAILY 08/13/24 0 12/02/24 leuprolide acetate (6 month) 45 mg 45 mg SQ [id number] 12/02/24 12/02/24 (6 month) subcutaneous syringe (Eligard) melatonin 3 mg capsule 3 mg PO HS PRN 12/02/2411/22 ocrelizumab 30 mg/mL intravenous 600 mg IV [id number] 12/02/24 solution (Ocrevus) Previous Rx's ?Medication ?Instructions ?Recorded aspirin 81 mg tablet 81 mg PO DAILY 30 days #30 t abs 08/17/24 cholecalciferol (vitamin D3) 50 2,000 unit PO DAILY #3 0 caps 08/17/24 mcg (2,000 unit) capsule (Vitamin D3) gabapentin 100 mg capsule 200 mg (2 x 100 mg) PO TID 3 0 days 08/17/24 #180 caps metformin 500 mg 24 hr 500 mg PO DAILY #30 tabs tablet,extended release (gastric retention) methenamine hippurate 1 gram tablet 1 g PO BID 30 days #60 tabs 08/17/24 polyethylene glycol 3350 17 17 g PO DAILY #238 grams 0 08/17/24 gram/dose oral powder (Miralax) silodosin 8 mg capsule 8 mg PO DAILY 30 days #30 ca ps 08/17/24 sodium chloride 1,000 mg soluble 1,000 mg PO DAILY 30 days #30 tabs 08/17/24 tablet vitamins A,C,E-hkcn-oyvxnt 2,148 1 tab PO BID 30 days #60 tabs 08/17/24 mcg-113 mg-45 mg-17.4 mg tablet (PreserVision AREDS) bisoprolol fumarate 5 mg tablet 5 mg PO DAILY 30 days #30 tabs 09/01/24 famotidine 20 mg tablet 20 mg PO BID #60 tabs lisinopril 5 mg tablet 5 mg PO DAILY #30 tabs 11/02 atorvastatin 20 mg tablet See Rx Instructions .Route 0 11/03/24 .COMPLEX #90 tabs Allergies Allergy/AdvReac Type Severity Reaction Status Date / Time No Known Allergies Allergy Verified 12/02/24 09:17 [facility] <Kate Lowery (ED), [employer]IAN - Last Filed: 12/02/24 16:49> [facility] Disclaimer: The information contained in this section may have been updated after the patient was seen, as this information can be updated by other users. Medical History Diabetes mellitus, type 2 Soft tissue mass Hyponatremia Mass of parotid gland right Skin lesions Decreased hearing Anemia Screening for lung cancer Tobacco use Spastic paraparesis Enlarged prostate Macular degeneration Prostate CA GERD (gastroesophageal reflux disease) Diabetes Hypertension Hyperlipidemia Multiple sclerosis Chronic pain Falls COPD (chronic obstructive pulmonary disease) Fracture of right fibula Surgical History History of knee replacement procedure of left knee History of prostate surgery TURP History of appendectomy Family History Other Family history of COPD (chronic obstructive pulmonary disease) Family history of diabetes mellitus type II Family history of hyperlipidemia Family history of hypertension Prostate cancer Social History Smoking Status: Former smoker tobacco type: cigarettes smoking status stop date: 2021 alcohol intake: current alcohol intake frequency: holidays/special occasions only current occupational status: other Travel in the last 8 weeks?: None Have you lived/traveled outside US in past 30 days?: No Contact w/someone who lives/traveled outside US past 30 days?: No Exposure to someone with infectious disease in past 14 days?: No Do you have a fever (greater than 100.4 F or 38 C)?: No Have you tested positive for COVID-19?: No Exposed to someone with COVID-19 in past 14 days?: No Do you have a sore throat?: No Do you have a cough?: No Do you have any weakness?: No Do you have any diarrhea?: No Are you experiencing any unusual bleeding?: No Do you have any muscle aches/pain?: No Do you have any abdominal pain?: No Are you experiencing loss of taste or smell?: No Other Medical History Have you received the Flu Vaccine for this season: No Have you received the Pneumonia Vaccine: Yes <Kate Lowery (ED), [employer] - Last Filed: 12/02/24 16:49> ROS Obtained: Yes Systems reviewed as appropriate & no additional complaints except as documented Constitutional Constitutional: Reports as per HPI Physical Exam <Kate Lowery (ED), [employer] - Last Filed: 12/02/24 16:49> General General appearance: alert and in no apparent distress Head Head exam: normocephalic Eye Eye exam: Present PERRL and EOMI ENT ENT exam: Present normal oropharynx and mucous membranes moist Neck Neck exam: Present full ROM and trachea midline Respiratory Respiratory exam: Present normal lung sounds bilaterally Cardiovascular Cardiovascular exam: Present regular rate, normal rhythm, normal heart sounds, +S1 and +S2 Abdominal Exam Abdominal exam: Present soft and normal bowel sounds Extremities Exam Extremities exam: Present full ROM and edema Neurological Exam Neurological exam: Present alert and oriented X3 Skin Skin exam: Present warm and dry Medical Decision Making <Kate Lowery (ED), [employer] - Last Filed: 12/02/24 16:49> Medical Records Screening: Per USPSTF and CDC recommendations, given the prevalence of disease in our region, it is our hospital?s policy to screen for HIV and viral Hepatitis for all patients aged 18 and over and those with ongoing risk factors. Vick Inquiry Pt receiving controlled substance: No Vick was queried for this patient: No Vital Signs: 12/02/24 10:13 12/02/24 10:47 12/02/24 11:00 Temperature 97.8 F Temperature Source Oral Pulse Rate 62 67 Pulse Rate [Left] 64 Respiratory Rate 17 16 15 Blood Pressure 132/56 L 127/47 L Blood Pressure [Right Arm] 134/58 L Blood Pressure Mean 106 Blood Pressure Mean [Right Arm] 83 Blood Pressure Source [Right Arm] Automatic Cuff Blood Pressure Position [Right Arm] Supine 02 Sat by Pulse Oximetry 98 99 100 Oxygen Delivery Method Room Air Room Air 12/02/24 11:30 12/02/24 12:00 12/02/24 12:30 Temperature Temperature Source Pulse Rate 68 71 78 Pulse Rate [Left] Respiratory Rate 15 16 15 Blood Pressure 117/43 L 130/55 L 122/44 L Blood Pressure [Right Arm] Blood Pressure Mean 85 Blood Pressure Mean [Right Arm] Blood Pressure Source [Right Arm] Blood Pressure Position [Right Arm] 02 Sat by Pulse Oximetry 99 98 98 Oxygen Delivery Method Room Air 12/02/24 13:00 12/02/24 13:30 12/02/24 14:01 Temperature Temperature Source Pulse Rate 78 81 77 Pulse Rate [Left] Respiratory Rate 16 17 16 Blood Pressure 142/68 H 138/64 150/66 H Blood Pressure [Right Arm] Blood Pressure Mean 84 88 94 Blood Pressure Mean [Right Arm] Blood Pressure Source [Right Arm] Blood Pressure Position [Right Arm] 02 Sat by Pulse Oximetry 98 97 98 Oxygen Delivery Method Room Air Room Air Room Air 12/02/24 14:30 12/02/24 15:00 12/02/24 15:30 Temperature Temperature Source Pulse Rate 82 80 81 Pulse Rate [Left] Respiratory Rate 16 15 18 Blood Pressure 146/65 H 144/69 H 155/72 H Blood Pressure [Right Arm] Blood Pressure Mean 101 99 Blood Pressure Mean [Right Arm] Blood Pressure Source [Right Arm] Blood Pressure Position [Right Arm] 02 Sat by Pulse Oximetry 97 96 98 Oxygen Delivery Method Room Air Room Air Lab Data Lab Results 12/02/24 10:10: POC Glucose 121 H 12/02/24 10:15: WBC 10.7, RBC 4.01 L, Hgb 11.1 L, Hct 34.3 L, MCV 85.5, MCH 27.7, MCHC 32.4, RDW 15.8, Plt Count 300, MPV 10.4, Neut % (Auto) 45.7, Lymph % (Auto) 30.9, Noble % (Auto) 6.6, Eos % (Auto) 16.1 H, Baso % (Auto) 0.4, Neut # (Auto) 4.9, Lymph # (Auto) 3.3, Noble # (Auto) 0.7, Eos # (Auto) 1.7 H, Baso # (Auto) 0.0, Sodium 129 L, Potassium 4.0, Chloride 100, Carbon Dioxide 22, Anion Gap 11.0, BUN 10, Creatinine 0.90, Estimated Creat Clear 82, Estimated GFR 82, Est GFR ( Amer) 99, Glucose 119 H, Calcium 9.0, Magnesium 1.8, Total Bilirubin 0.7, AST 22, ALT 19, Alkaline Phosphatase 139 H, Troponin I < 0.01, N T-Pro-B Natriuret Pep 1230 H, Total Protein 6.1 L, Albumin 3.5, Globulin 2.6, Albumin/Globulin Ratio 1.3, Lipase 37 12/02/24 10:47: SARS-CoV-2 (PCR) Not detected, Influenza A Untype (PCR) Not detected, Influenza Type B (PCR) Not detected 12/02/24 13:39: Troponin I < 0.01 12/02/24 10:15 12/02/24 10:15 Orders (Tests/Meds): ED MEDICATIONS Generic Name Dose Route Start Last Admin Trade Name Freq PRN Reason Stop Dose Admin Ceftriaxone Sodium 2 gm/ 100 mls @ 200 mls/hr 12/02/24 16:45 Sodium Chloride IV 12/12/24 16:44 Q24H LUZ ELENA Discontinued Medications Generic Name Dose Route Start Last Admin Trade Name Freq PRN Reason Stop Dose Admin Furosemide 20 mg 12/02/24 16:37 Furosemide 40mg/4ml Vial IV 12/02/24 16:38 ONCE ONE Iopamidol 160 ml 12/02/24 12:08 12/02/24 12:09 Iopamidol-370 (76%);100ml Bottle IV 12/02/24 12:09 160 ml ONCE ONE Administration Sodium Chloride 10 ml 12/02/24 12:08 12/02/24 12:09 Sodium Chloride 0.9% 10ml Syr (Rad Only) IV 12/02/24 12:09 10 ml ONCE ONE Administration Sodium Chloride 100 ml 12/02/24 12:08 12/02/24 12:09 0.9 % Sodium Chloride 50 Ml Vial IV 12/02/24 12:09 100 ml ONCE ONE Administration ORDERS Category Date Time Status CT angio chest PE protocol Stat Cat Scan 12/02/24 10:[address] angio head Stat Cat Scan 12/02/24 10:[address] angio neck Stat Cat Scan 12/02/24 10:[address] head/brain wo con Stat Cat Scan 12/02/24 10:40 Completed BNP [NT Pro Brain Natriuretic Pep.] Stat Lab 12/02/24 10:15 Completed CBC [Complete Blood Count Auto Diff] Stat Lab 12/02/24 10:15 Completed Comprehensive Metabolic Panel Stat Lab 12/02/24 10:15 Completed Lipase Stat Lab 12/02/24 10:15 Completed Magnesium Stat Lab 12/02/24 10:15 Completed POC Glucose,Bedside Routine Lab 12/02/24 10:10 Completed Rapid PCR Covid and Flu A/B Stat Lab 12/02/24 10:47 Completed Trop I [Troponin I] Stat Lab 12/02/24 10:15 Completed Troponin I Q3H Lab 12/02/24 13:39 Completed Medical Decision Narrative: patient is a [place] 9-year-old male presenting to the emergency department for evaluation of syncopal episode at doctor's office. Patient is hemodynamically stable and nontoxic-appearing upon arrival, afebrile. Differential diagnosis includes syncope, ACS, MS flare. Workup will be conducted with hematologic labs, specific imaging. Patient's neck CTA showed 60 to 70% stenosis in the right ICA and 7080% stenosis in the left ICA. I talked to [facility] neuro surgery and he told me that those CT reads should not be causing any syncope symptoms. He says that these are likely cardiac symptoms in nature. The patient denies any chest pain symptoms he denies any shortness of breath. I discussed a possible admission for this patient with patient and his . I wanted to admit patient for a cardiology workup. Patient outright refused. He wants to do this outpatient. He told me before he had his CT scans today that he wanted to go home and he did not want to wait. He says nothing is wrong with him and his syncopal episodes have been happening for years. He says no one can ever figure anything out. convinced him to stay for the CT scans. I discussed with patient and he decided to stay for the results of the scans. So I did discuss with him and his that they need to follow-up outpatient with cardiology. I we will give them Dr. Pepper's information to follow-up with the stenosis on his neck CTA and a full cardiology workup. Both agreed to do outpatient workup. I did discuss that this could cause a stroke and then I was concerned about this. I also told him that he needed a cardiology workup because the fluid around his heart and the syncope episodes could be caused by this. Patient still says he wants to go home and do it outpatient workup. Ultimately patient left as a patient directed discharge with full capacity and medical decision making understanding risk of this decision. Patient is stable at this time and safe for discharge home. I was consulted by the RAMO, and we discussed the complexity of problems being addressed. I approved the treatment and management plan for this patient's care in the emergency department, thus performing a substantial portion of the medical decision making. Santa Griffin MD Discussed again admission with patient and . convinced patient to be admitted for workup. [facility] [place] [facility] Tamayo septic patient to medicine telemetry floor. I did order Rocephin 2 g and 20 mg IV Lasix for patient. Patient is Lasix na?ve. [facility]. <Santa Griffin MD - Last Filed: 12/02/24 15:48> Vital Signs: 12/02/24 10:13 12/02/24 10:47 12/02/24 11:00 Temperature 97.8 F Temperature Source Oral Pulse Rate 62 67 Pulse Rate [Left] 64 Respiratory Rate 17 16 15 Blood Pressure 132/56 L 127/47 L Blood Pressure [Right Arm] 134/58 L Blood Pressure Mean 106 Blood Pressure Mean [Right Arm] 83 Blood Pressure Source [Right Arm] Automatic Cuff Blood Pressure Position [Right Arm] Supine 02 Sat by Pulse Oximetry 98 99 100 Oxygen Delivery Method Room Air Room Air 12/02/24 11:30 12/02/24 12:00 12/02/24 12:30 Temperature Temperature Source Pulse Rate 68 71 78 Pulse Rate [Left] Respiratory Rate 15 16 15 Blood Pressure 117/43 L 130/55 L 122/44 L Blood Pressure [Right Arm] Blood Pressure Mean 85 Blood Pressure Mean [Right Arm] Blood Pressure Source [Right Arm] Blood Pressure Position [Right Arm] 02 Sat by Pulse Oximetry 99 98 98 Oxygen Delivery Method Room Air 12/02/24 13:00 12/02/24 13:30 12/02/24 14:01 Temperature Temperature Source Pulse Rate 78 81 77 Pulse Rate [Left] Respiratory Rate 16 17 16 Blood Pressure 142/68 H 138/64 150/66 H Blood Pressure [Right Arm] Blood Pressure Mean 84 88 94 Blood Pressure Mean [Right Arm] Blood Pressure Source [Right Arm] Blood Pressure Position [Right Arm] 02 Sat by Pulse Oximetry 98 97 98 Oxygen Delivery Method Room Air Room Air Room Air 12/02/24 14:30 12/02/24 15:00 12/02/24 15:30 Temperature Temperature Source Pulse Rate 82 80 81 Pulse Rate [Left] Respiratory Rate 16 15 18 Blood Pressure 146/65 H 144/69 H 155/72 H Blood Pressure [Right Arm] Blood Pressure Mean 101 99 Blood Pressure Mean [Right Arm] Blood Pressure Source [Right Arm] Blood Pressure Position [Right Arm] 02 Sat by Pulse Oximetry 97 96 98 Oxygen Delivery Method Room Air Room Air Lab Data Lab Results 12/02/24 10:10: POC Glucose 121 H 12/02/24 10:15: WBC 10.7, RBC 4.01 L, Hgb 11.1 L, Hct 34.3 L, MCV 85.5, MCH 27.7, MCHC 32.4, RDW 15.8, Plt Count 300, MPV 10.4, Neut % (Auto) 45.7, Lymph % (Auto) 30.9, Noble % (Auto) 6.6, Eos % (Auto) 16.1 H, Baso % (Auto) 0.4, Neut # (Auto) 4.9, Lymph # (Auto) 3.3, Noble # (Auto) 0.7, Eos # (Auto) 1.7 H, Baso # (Auto) 0.0, Sodium 129 L, Potassium 4.0, Chloride 100, Carbon Dioxide 22, Anion Gap 11.0, BUN 10, Creatinine 0.90, Estimated Creat Clear 82, Estimated GFR 82, Est GFR ( Amer) 99, Glucose 119 H, Calcium 9.0, Magnesium 1.8, Total Bilirubin 0.7, AST 22, ALT 19, Alkaline Phosphatase 139 H, Troponin I < 0.01, N T-Pro-B Natriuret Pep 1230 H, Total Protein 6.1 L, Albumin 3.5, Globulin 2.6, Albumin/Globulin Ratio 1.3, Lipase 37 12/02/24 10:47: SARS-CoV-2 (PCR) Not detected, Influenza A Untype (PCR) Not detected, Influenza Type B (PCR) Not detected 12/02/24 13:39: Troponin I < 0.01 Orders (Tests/Meds): ED MEDICATIONS Generic Name Dose Route Start Last Admin Trade Name Freq PRN Reason Stop Dose Admin Ceftriaxone Sodium 2 gm/ 100 mls @ 200 mls/hr 12/02/24 16:45 Sodium Chloride IV 12/12/24 16:44 Q24H LUZ ELENA Discontinued Medications Generic Name Dose Route Start Last Admin Trade Name Freq PRN Reason Stop Dose Admin Furosemide 20 mg 12/02/24 16:37 Furosemide 40mg/4ml Vial IV 12/02/24 16:38 ONCE ONE Iopamidol 160 ml 12/02/24 12:08 12/02/24 12:09 Iopamidol-370 (76%);100ml Bottle IV 12/02/24 12:09 160 ml ONCE ONE Administration Sodium Chloride 10 ml 12/02/24 12:08 12/02/24 12:09 Sodium Chloride 0.9% 10ml Syr (Rad Only) IV 12/02/24 12:09 10 ml ONCE ONE Administration Sodium Chloride 100 ml 12/02/24 12:08 12/02/24 12:09 0.9 % Sodium Chloride 50 Ml Vial IV 12/02/24 12:09 100 ml ONCE ONE Administration ORDERS Category Date Time Status CT angio chest PE protocol Stat Cat Scan 12/02/24 10:[address] angio head Stat Cat Scan 12/02/24 10:[address] angio neck Stat Cat Scan 12/02/24 10:[address] head/brain wo con Stat Cat Scan 12/02/24 10:40 Completed BNP [NT Pro Brain Natriuretic Pep.] Stat Lab 12/02/24 10:15 Completed CBC [Complete Blood Count Auto Diff] Stat Lab 12/02/24 10:15 Completed Comprehensive Metabolic Panel Stat Lab 12/02/24 10:15 Completed Lipase Stat Lab 12/02/24 10:15 Completed Magnesium Stat Lab 12/02/24 10:15 Completed POC Glucose,Bedside Routine Lab 12/02/24 10:10 Completed Rapid PCR Covid and Flu A/B Stat Lab 12/02/24 10:47 Completed Trop I [Troponin I] Stat Lab 12/02/24 10:15 Completed Troponin I Q3H Lab 12/02/24 13:39 Completed Medical Decision Narrative: patient is a [place] 9-year-old male presenting to the emergency department for evaluation of syncopal episode at doctor's office. Patient is hemodynamically stable and nontoxic-appearing upon arrival, afebrile. Differential diagnosis includes syncope, ACS, MS flare. Workup will be conducted with hematologic labs, specific imaging. Patient's neck CTA showed 60 to 70% stenosis in the right ICA and 7080% stenosis in the left ICA. I talked to [facility] neuro surgery and he told me that those CT reads should not be causing any syncope symptoms. He says that these are likely cardiac symptoms in nature. The patient denies any chest pain symptoms he denies any shortness of breath. I discussed a possible admission for this patient with patient and his . I wanted to admit patient for a cardiology workup. Patient outright refused. He wants to do this outpatient. He told me before he had his CT scans today that he wanted to go home and he did not want to wait. He says nothing is wrong with him and his syncopal episodes have been happening for years. He says no one can ever figure anything out. convinced him to stay for the CT scans. I discussed with patient and he decided to stay for the results of the scans. So I did discuss with him and his that they need to follow-up outpatient with cardiology. I we will give them Dr. Pepper's information to follow-up with the stenosis on his neck CTA and a full cardiology workup. Both agreed to do outpatient workup. I did discuss that this could cause a stroke and then I was concerned about this. I also told him that he needed a cardiology workup because the fluid around his heart and the syncope episodes could be caused by this. Patient still says he wants to go home and do it outpatient workup. Ultimately patient left as a patient directed discharge with full capacity and medical decision making understanding risk of this decision. Patient is stable at this time and safe for discharge home. I was consulted by the RAMO, and we discussed the complexity of problems being addressed. I approved the treatment and management plan for this patient's care in the emergency department, thus performing a substantial portion of the medical decision making. Santa Griffin MD Critical Care <Santa Griffin MD - Last Filed: 12/02/24 15:48> Critical Care Time Critical Care Time: No
--- NOTE | 2024-12-02 10:40 | CT_ITS ---
FINAL REPORT TECHNIQUE: Thin section axial images were obtained from skull base to vertex without contrast. Coronal reconstruction images were obtained from the axial data. Exam was performed using dose reduction techniques such as automated exposure control, adjustment of the mA and kV according to patient size, and use of iterative reconstruction technique. CLINICAL HISTORY: Syncope COMPARISON: None FINDINGS: There is atrophy. No mass effect or midline shift. No intracranial hemorrhage. No hydrocephalus. Periventricular low density is likely related to changes of chronic small vessel ischemia. The basilar cisterns are preserved. The posterior fossa is without acute abnormality. The soft tissues are without acute abnormality. No acute osseous abnormality is identified. IMPRESSION: No intracranial hemorrhage or evidence of acute large infarct. Atrophy and changes suggesting chronic small vessel ischemia. Reviewed, Interpreted and Dictated by Latha Rosario MD Transcribed by Hollie Reich Authenticated and [facility]
[2024-12-02 10:48] LABS: Hematocrit 34.3 % (42.0-52.0); Hemoglobin 11.1 g/dL (14.1-18.0); Immature Granulocytes % 0.3 %; Mean Corpuscular HGB Conc 32.4 g/dL (31.8-35.4); Mean Corpuscular Hemoglobin 27.7 pg (27.0-31.2); Mean Corpuscular Volume 85.5 fl (80-94); Nucleated Red Blood Cells % 0 %; Platelet Count 300 K/mm3 (142-424); Red Blood Count 4.01 M/mm3 (4.60-6.20); Red Cell Distribution Width-SD 49.5 fL; White Blood Count 10.7 K/mm3 (4.8-10.8)
[2024-12-02 10:50] LABS: Coronavirus 19, PCR Not Detected (NotDetected); Influenza A, PCR Not Detected (NotDetected); Influenza B, PCR Not Detected (NotDetected)
[2024-12-02 10:52] LABS: Chloride 100 mmol/L (98-107)
[2024-12-02 10:53] LABS: Potassium 4.0 mmoL/L (3.5-5.1); Sodium 129 mmol/L (136-145)
[2024-12-02 10:55] LABS: Alanine Aminotransferase 19 U/L (12-78); Alkaline Phosphatase 139 U/L (38-126); Aspartate Amino Transferase 22 U/L (17-59); Bilirubin,Total 0.7 mg/dl (0.2-1.3); Blood Urea Nitrogen 10 mg/dl (9-20); Carbon Dioxide 22 mmol/L (22.0-30.0); Creatinine Clearance Estimated 82 mL/min (50-200); Creatinine,Serum 0.90 mg/dl (0.66-1.25); Estimated Glomerular Filt Rate 82 ml/min (>60); GFR (African American) 99 ML/MIN (>60); Total Protein,Serum 6.1 g/dl (6.3-8.2)
[2024-12-02 10:56] LABS: Calcium 9.0 mg/dl (8.4-10.2); Glucose 119 mg/dl (74-100); Lipase 37 U/L (23-300); Magnesium 1.8 mg/dl (1.6-2.3)
[2024-12-02 10:57] LABS: Anion Gap 11.0 mEq/L (5-15)
[2024-12-02 11:04] LABS: NT Pro Brain Natriuretic Pep. 1230 pg/mL (0-450)
[2024-12-02 11:07] LABS: Troponin I < 0.01 ng/ml (0.00-0.034)
[2024-12-02] MEDS: IOPAMIDOL-370 (76%);100ML BOTTLE 160 ML IV (12:09)
[2024-12-02] MEDS: 0.9 % SODIUM CHLORIDE 50 ML VIAL 100 ML IV (12:09)
[2024-12-02] MEDS: SODIUM CHLORIDE 0.9% 10ML SYR (RAD ONLY) 10 ML IV (12:09)
[2024-12-02 13:14] LABS: Albumin Level 3.5 g/dl (3.5-5.0); Albumin/Globulin Ratio 1.3 (1.1-1.8); Globulin 2.6 g/dL (1.3-3.2)
--- NOTE | 2024-12-02 13:42 | PC.NURSE ---
Trop sent to lab on patient at this time.
[2024-12-02 14:34] LABS: Troponin I < 0.01 ng/ml (0.00-0.034)
--- NOTE | 2024-12-02 14:48 | PC.NURSE ---
CALLING ISABELLA AT THIS TIME.
--- NOTE | 2024-12-02 14:49 | PC.NURSE ---
images have been power shared to [facility]
--- NOTE | 2024-12-02 15:13 | PC.NURSE ---
Kate speaking with Neela.
--- NOTE | 2024-12-02 16:22 | PC.NURSE ---
[facility] for [facility]
--- NOTE | 2024-12-02 16:34 | PC.NURSE ---
Keith Lowery on the phone with [facility]
[2024-12-02] MEDS: FUROSEMIDE 40MG/4ML VIAL 20 MG IV (17:00)
--- NOTE | 2024-12-02 17:36 | PC.NURSE ---
[facility] report [facility] to GUERITA Reynolds.
--- NOTE | 2024-12-02 17:41 | PC.NURSE ---
CALLED em[facility] FOR TRANSFER AT THIS TIME
--- NOTE | 2024-12-02 17:59 | PC.NURSE ---
[facility] at bedside for transport to [place].
== END 2024-12-02 18:18 | disposition other institution (70) ==
PROVIDERS: Nurse Practitioner; Emergency Provider Student in an Organized Health Care Education/Training Program; PCP Family Medicine
DX: R55 Syncope and collapse (principal); I11.0 Hypertensive heart disease with heart failure; I50.9 Heart failure, unspecified; E78.5 Hyperlipidemia, unspecified
CPT/HCPCS: 70450; 70496; 70498; 71275; 80053; 82962; 83690; 83735; 83880; 84484; 85025; 87636; 93005; 96365; 96375; 99285; J0696; J1938; Q9967